=== PATIENT | female | born 1960 | race Hispanic/Latino ===

== ENCOUNTER 2017-09-07 11:41 | Emergency (ER) | payer OTHER ==
--- OUTSIDE RECORDS SUMMARY | 2017-09-07 11:43 | XMS REPORT ---
:1960 [facility] Address [address] [place] [address] Care Team Providers Name Role Phone JACQUI CORONADO Primary Care Provider Unavailable JACQUI CORONADO Unavailable Unavailable Problems This patient has no known problems. Allergies, Adverse Reactions, Alerts This patient has no known allergies or adverse reactions. Medications This patient has no known medications. Encounters Start End Encounter Admission Attending Care Care Encounter Date/Time Date/Time Type Type Clinicians Facility Department ID 2017-07-11 2017-07-11 Outpatient [facility] [id number] 17:58:00 17:58:00 JACQUI Results Test Description Test Time Test Comments Text Results Atomic Results Result Comments Lipid Profile 2017-07-11 22:09:00 Test Item Value Reference Range Comments Cholesterol (test code=CHOL) 107 mg/dL 0-200 Triglycerides (test code=TRIG) 76 mg/dL 9-200 HDL (test code=HDL) 36 mg/dL 50-60 Chol/HDL (test code=CHOLPHDL) 3.0 Ratio 0.0-4.4 LDL, Calculated (test 56 0-130 (NOTE)RISK OF HEART DISEASEPublished code=LDLC) by Iranian Heart AssociationAnalyte Optimal Boderline Increased RiskCHOL <200 200-239 >240TRIG <150 150-199 >200HDL Male: >60 <40HDL Female: >60 <50LDL <100 130-159 >160LDL NEAR OPTIMAL IS 100-129 VLDL (test code=VLDL) 15 mg/dL 5-40 LDL/HDL (test code=LDLPHDL) 2 Comprehensive Metabolic [id number] 22:09:00 Test Item Value Reference Range Comments Sodium (test code=NA) 143 mmol/L 135-145 Potassium (test code=K) 4.0 mmol/L 3.5-5.1 Chloride (test code=CL) 108 mmol/L 98-105 Carbon Dioxide (test 25 mmol/L 22-29 code=CO2) Glucose (test code=GLU) 113 mg/dL 70-115 Blood Urea Nitrogen 20 mg/dL 6-20 (test code=BUN) Creatinine (test 0.5 mg/dL 0.5-0.9 code=CREAT) Calcium (test code=CA) 9.0 mg/dL 8.3-10.5 Prot Total (test 7.0 g/dL 6.4-8.3 code=TP) Albumin (test code=ALB) 3.8 g/dL 3.5-5.2 A/G Ratio (test 1.2 Ratio code=AGRATIO) Globulin (test 3.2 2.9-3.1 code=GLOB) Bili Total (test 0.5 mg/dL 0.1-0.9 code=TBIL) Alk Phos (test 65 U/L 35-104 code=APHOS) AST (test code=AST) 16 U/L 1-32 ALT (test code=ALT) 21 U/L 1-33 BUN/Creatinine Ratio 40.0 (test code=BCRATIO) Anion Gap (test 10 mmol/L 7-16 code=AGAP) Estimated GFR (test >60 eGFR (estimated Glomerular code=GFR) mL/min/1.73m2 Filtration Rate) is an estimated value,calculated from the patient's serum creatinine using the MDRD equation.It is NOT the patient's actual GFR. The eGFR provides a more clinicallyuseful measure of kidney disease than serum creatinine alone.This calculation takes sex and race into account, if the informationis provided. If the race is not provided, and the patient isAfrican-Iranian, multiply by 1.212. If sex is not provided, and thepatient is female, multiply by 0.742. Results for patients <18 years ofage have not been validated by the MDRD study and should be interpretedwith caution.eGFR Result Interpretation:eGFR > or=60 is in the Normal RangeeGFR < 60 may mean kidney diseaseeGFR < 15 may mean kidney failureRanges recommended by the National Kidney Foundation,http://nkdep.ni h.gov [id number] 22:05:00 Test Item Value Reference Range Comments NT ProBnp (test code=PBNP) 1920 pg/mL 0-124 CBC with [id number] 18:24:00 Test Item Value Reference Range Comments WBC (test code=WBC) 5.2 K/cumm 4.4-10.5 RBC (test code=RBC) 4.36 M/cumm 3.75-5.20 Hemoglobin (test code=HGB) 12.5 gm/dL 12.2-14.8 Hematocrit (test code=HCT) 38.2 % 36.5-44.4 MCV (test code=MCV) 87.7 fL 80-100 MCH (test code=MCH) 28.7 pg 27.0-32.5 MCHC (test code=MCHC) 32.7 g/dL 32.0-37.5 RDW (test code=RDW) 14.5 % 11.5-14.5 Platelet Count (test code=PLTCT) 158 K/cumm 140-440 MPV (test code=MPV) 10.7 fL Diff Method (test code=DIFFM) Auto Neutrophil (test code=NEUT) 64.9 % 36-70 Lymphocyte (test code=LYMPH) 26.3 % 12-44 Monocyte (test code=MONO) 6.4 % 0-11 Eosinophil (test code=EOS) 1.7 % 0-7 Basophil (test code=BASO) 0.8 % 0-2 Neutro Abs (test code=ANEUT) 3.4 K/cumm 1.6-7.4 Lymph Abs (test code=ALYMPH) 1.4 K/cumm 0.5-4.6 Preston Abs (test code=AMONO) 0.3 K/cumm 0.0-1.2 Eos Abs (test code=AEOS) 0.09 K/cumm 0.00-0.74 Baso Abs (test code=ABASO) 0.0 K/cumm 0.00-0.21
--- OUTSIDE RECORDS SUMMARY | 2017-09-07 11:43 | XMS REPORT ---
:1960 [facility] Care Team Providers Name Role Phone Aleah Santizo Provider Role Unavailable Allergies, Adverse Reactions, Alerts Substance Reaction Event Type penicillin Info Not Available Drug Allergy Problems Problem Type Condition Code Onset Dates Condition Status Problem Uncontrolled type 2 diabetes E11.65 Active mellitus without complication, without long-term current use of insulin Problem Pain of left hand M79.642 Active Problem Abnormal finding on mammography R92.8 Active Problem Pain in left knee M25.562 Active Assessment Pharyngitis, unspecified etiology J02.9 Active Problem Cardiac defibrillator in place Z95.810 Active Problem Peripheral edema R60.9 Active Problem Pain in right hand M79.641 Active Problem Body mass index (BMI) of 45.0-49.9 Z68.42 Active in adult Problem Morbid (severe) obesity due to E66.01 Active excess calories Problem Varicose veins of bilateral lower I83.813 Active extremities with pain Problem Depression F32.9 Active Problem Edema R60.9 Active Problem Diabetes type 2, controlled E11.9 Active Problem Peripheral vascular disease I73.9 Active Problem Other chronic pain G89.29 Active Problem Pain in right knee M25.561 Active Problem Hypertension I10 Active Problem Shortness of breath R06.02 Active Problem Heart disease I51.9 Active Problem Hypertension, unspecified type I10 Active Medications Medication Code Code Instructions Start End Status Dosage System Date Date Glimepiride ND 57376687260 2 MG Orally Once Active 1 tablet a day Macario Aspirin ND 74167857943 81 MG Orally Active 1 tablet EC Low Dose Once a day Lisinopril ND 85493220832 40 MG Orally Active 1 tablet Once a day Metformin HCl ND 64266995947 500 MG Orally Active 1 tablet Twice a day with meals Furosemide ND 63106504539 40 MG Orally Active 1 tablet Once a day in am Klor-Con 10 ND 55722680878 10 MEQ Orally Oct 01, Active 1 tablet Once a day 2018 Coreg [facility] 22761562942 12.5 MG Orally Active 1 tablet Once daily Results Name Result Date Reference Range Unit Abnormality Flag FLU TEST ----A Negative [id number] ----B Negative [id number] STREP A RAPID ----Result Negative [id number] Summary Purpose eClinicalWorks Submission
[2017-09-07 13:46] LABS: Absolute Lymphocytes (CBC) 1.4 K/uL (0.7-4.9); Absolute Monocytes 0.3 K/uL (0.1-1.3); Absolute Neutrophil 3.9 K/uL (1.8-8.0); Basophils % 0.7 % (0-1.3); Eosinophils % 1.7 % (0-4.4); Hematocrit 37.3 % (36.0-45.0); Lymphocytes % 25.1 % (15.3-44.8); MCH 26.6 pg (27.0-35.0); MCV 82.7 fL (80-100); MPV 11.1 fL (7.6-11.3); Monocytes % 4.8 % (3.3-12.3); RBC Red Blood Cell Count 4.51 M/uL (3.86-4.86)
[2017-09-07 13:49] LABS: Protime INR 1.13
--- NOTE | 2017-09-07 13:56 | RAD REPORT ---
EXAM DESCRIPTION: RAD - Chest Pa And Lat (2 Views) - 09/07/2017 1:45 pm CLINICAL HISTORY: Shortness of breath. COMPARISON: 08/18/2015, 05/31/2009 FINDINGS: The lungs are clear. The heart is moderately enlarged with dual lead pacer/ defibrillator device in place. No displaced fractures. IMPRESSION: Moderate cardiomegaly.
[2017-09-07 14:08] LABS: Urine Blood 2+ (NEG); Urine Glucose NEGATIVE (NEG); Urine Protein NEGATIVE (NEG); Urine Specific Gravity 1.025 (1.005-1.030); Urine pH 5.5 (5.0-7.0)
[2017-09-07 14:18] LABS: Bicarbonate 27 mEq/L (21-31); Glucose Level 177 mg/dL (65-120); Potassium 3.3 mEq/L (3.6-5.0); Sodium Level 139 mEq/L (135-145)
[2017-09-07 14:25] LABS: ALT/SGPT 25 IU/L (10-60); AST/SGOT 19 IU/L (10-42); Albumin 3.6 g/dL (3.2-5.5); Alkaline Phosphatase 62 IU/L (42-121); BUN Blood Urea Nitrogen 16 mg/dL (6-20); Bilirubin Direct 0.1 mg/dL (0-0.2); Bilirubin Total 0.6 mg/dL (0.3-1.2); Magnesium 1.5 mg/dL (1.8-2.5)
[2017-09-07] MEDS ORDERED: Magnesium Sulfate 2gm IVPB 2 G/50 ML BAG IV ONE (14:46)
--- NOTE | 2017-09-07 15:19 | ER ---
Nurse's Notes [facility] Name: Sukh York Age: 57 yrs Sex: Female : 1960 Arrival Date: 09/07/2017 Time: 11:42 Bed 24 Private MD: Aleah Nicholson Diagnosis: Acute upper respiratory infection, unspecified Presentation: 09/07 11:49 Presenting complaint: Patient states: I have had a cough and sore throat since la1 Friday and I was running fever on Friday. I am feeling a little SOB as well and a productive cough. Transition of care: patient was not received from another setting of care. Onset of symptoms was September 07, 2017. Initial Sepsis Screen: Does the patient meet any 2 criteria? No. Patient's initial sepsis screen is negative. Does the patient have a suspected source of infection? No. Patient's initial sepsis screen is negative. Care prior to arrival: None. 11:49 Method Of Arrival: Ambulatory la1 11:49 Acuity: RADHA 3 la1 Triage Assessment: 13:41 General: Appears in no apparent distress. comfortable, obese, well groomed, well kr2 developed, well nourished, Behavior is calm, cooperative, appropriate for age. Respiratory: the patient reports symptoms have resolved. 14:00 Respiratory: Onset: The symptoms/episode began/occurred Friday. 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 - Social history:: Smoking status: Patient/guardian denies using tobacco. Screenin:41 Abuse screen: Denies threats or abuse. Denies injuries from another. Nutritional kr2 screening: No deficits noted. Tuberculosis screening: No symptoms or risk factors identified. Fall Risk IV access (20 points). Assessment: 13:38 General: Appears in no apparent distress. comfortable, obese, well groomed, well kr2 developed, well nourished, Behavior is calm, cooperative, appropriate for age. Pain: Complains of pain in entire body Pain currently is 0 out of 10 on a pain scale. at worst was 8 out of 10 on a pain scale. Quality of pain is described as aching, pressure, Is episodic, Alleviated by rest, Aggravated by increased activity. Neuro: Level of Consciousness is awake, alert, obeys commands, Oriented to person, place, time, situation, Appropriate for age. Cardiovascular: Capillary refill < 3 seconds in bilateral fingers Patient's skin is warm and dry. Rhythm is sinus rhythm. Respiratory: Reports shortness of breath on exertion cough that is productive, Airway is patent Respiratory effort is even, unlabored, Respiratory pattern is regular, symmetrical. Respiratory: Reports inability to lay flat. GI: Abdomen is flat, non-distended, Bowel sounds present X 4 quads. Abd is soft and non tender X 4 quads. : Urine is clear. EENT: Nares are clear bilaterally Oral mucosa is moist. Derm: Skin is intact, is healthy with good turgor, Skin is pink, warm \T\ dry. Musculoskeletal: Circulation, motion, and sensation intact. 13:38 Respiratory: Breath sounds are clear bilaterally. kr2 14:40 Reassessment: Patient appears in no apparent distress at this time. Patient and/or kr2 family updated on plan of care and expected duration. Pain level reassessed. Patient is alert, oriented x 3, equal unlabored respirations, skin warm/dry/pink. Patient denies pain at this time. 15:24 Reassessment: No changes from previously documented assessment. Patient to be kr2 discharged upon completion of IV magnesium. Vital Signs: 11:50 BP 130 / 79; Pulse 83; Resp 19; Temp 97.7(TE); Pulse Ox 97% on R/A; Weight 115.21 kg; la1 Height 5 ft. 1 in. (154.94 cm); Pain 8/10; 13:43 BP 131 / 91; Pulse 72; Resp 20; Pulse Ox 99% on R/A; kr2 14:08 BP 138 / 88; Pulse 83; Resp 20; Pulse Ox 98% on R/A; dh3 15:25 BP 138 / 95; Pulse 75; Resp 20; Pulse Ox 97% on R/A; kr2 16:24 BP 135 / 99; Pulse 75; Resp 18; Pulse Ox 99% on R/A; kr2 11:50 Body Mass Index 47.99 (115.21 kg, 154.94 cm) ri1 ED Course: 11:42 Patient arrived in ED. as 11:42 Aleah Nicholson MD is Private Physician. as 11:50 Triage completed. la1 11:50 Arm band placed on left wrist. la1 12:55 Anna Ferrara, DAY is Primary Nurse. kr2 12:57 Jose Magaña PA is PHCP. jr8 12:57 Gus San MD is Attending Physician. jr8 13:00 Patient has correct armband on for positive identification. Bed in low position. Call kr2 light in reach. Side rails up X 1. personnel monitor on. Pulse ox on. NIBP on. Door closed. Warm blanket given. Head of bed elevated. 13:35 Inserted saline lock: 20 gauge in left antecubital area, using aseptic technique. Blood kr2 collected. 13:42 XRAY Chest Pa And Lat (2 Views) In Process Unspecified. EDMS 13:43 X-ray completed. Patient tolerated procedure well. kp1 15:17 Aleah Nicholson MD is Referral Physician. jr8 16:24 No provider procedures requiring assistance completed. IV discontinued, intact, kr2 bleeding controlled, No redness/swelling at site. Pressure dressing applied. Administered Medications: 14:51 Drug: Magnesium Sulfate 2 grams Route: IVPB; Infused Over: 2 hrs; Site: left kr2 antecubital; 16:24 Follow up: Response: No adverse reaction; IV Status: Completed infusion kr2 Outcome: 15:17 Discharge ordered by . jr8 16:25 Discharged to home ambulatory. kr2 16:25 Condition: good 16:25 Discharge instructions given to patient, Instructed on discharge instructions, follow up and referral plans. medication usage, Demonstrated understanding of Prescriptions given X 3. 16:27 Patient left the ED. kr2 Signatures: Dispatcher [employer] EDMS Anu Lutz as Jose Magaña PA PA jr8 Jay Bhatti RN RN astrid1 Georgina Escamilla kp1 Nena Ibarra [facility] Anna Ferrara, RN RN kr2
--- NOTE | 2017-09-07 15:19 | EDPHYS ---
Physician Documentation [facility] Name: Sukh York Age: 57 yrs Sex: Female : 1960 Arrival Date: 09/07/2017 Time: 11:42 Bed 24 Private MD: Aleah Nicholson ED Physician Gus San HPI: 09/07 15:10 This 57 yrs old Female presents to ER via Ambulatory with complaints of Cough, jr8 Shortness Of Breath. 15:10 The patient or guardian reports cough, that is intermittent, described as mild, with no jr8 sputum. Onset: The symptoms/episode began/occurred acutely, 4 day(s) ago. Severity of symptoms: At their worst the symptoms were moderate, in the emergency department the symptoms are unchanged. Modifying factors: The symptoms are alleviated by nothing, the symptoms are aggravated by nothing. Associated signs and symptoms: Pertinent positives: sore throat. It is unknown whether or not the patient has had similar symptoms in the past. The patient has not recently seen a physician. noticed increased lower extremity edema. Had not taken her lasix today . 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 - Social history:: Smoking status: Patient/guardian denies using tobacco. ROS: 15:10 Eyes: Negative for injury, pain, redness, and discharge, Neck: Negative for injury, jr8 pain, and swelling, Cardiovascular: Negative for chest pain, palpitations, and edema, Abdomen/GI: Negative for abdominal pain, nausea, vomiting, diarrhea, and constipation, Back: Negative for injury and pain, MS/Extremity: Negative for injury and deformity, Skin: Negative for injury, rash, and discoloration, Neuro: Negative for headache, weakness, numbness, tingling, and seizure. 15:10 ENT: Positive for sore throat, Negative for drainage from ear(s), ear pain, nasal discharge, rhinorrhea, sinus congestion, difficulty swallowing, difficulty handling secretions, hoarseness. 15:10 Respiratory: Positive for cough, shortness of breath. Exam: 15:10 Eyes: Pupils equal round and reactive to light, extra-ocular motions intact. Lids and jr8 lashes normal. Conjunctiva and sclera are non-icteric and not injected. Cornea within normal limits. Periorbital areas with no swelling, redness, or edema. ENT: Nares patent. No nasal discharge, no septal abnormalities noted. Tympanic membranes are normal and external auditory canals are clear. Oropharynx with no redness, swelling, or masses, exudates, or evidence of obstruction, uvula midline. Mucous membranes moist. Neck: Trachea midline, no thyromegaly or masses palpated, and no cervical lymphadenopathy. Supple, full range of motion without nuchal rigidity, or vertebral point tenderness. No Meningismus. Cardiovascular: Regular rate and rhythm with a normal S1 and S2. No gallops, murmurs, or rubs. Normal PMI, no JVD. No pulse deficits. Respiratory: Lungs have equal breath sounds bilaterally, clear to auscultation and percussion. No rales, rhonchi or wheezes noted. No increased work of breathing, no retractions or nasal flaring. Abdomen/GI: Soft, non-tender, with normal bowel sounds. No distension or tympany. No guarding or rebound. No evidence of tenderness throughout. Back: No spinal tenderness. No costovertebral tenderness. Full range of motion. Skin: Warm, dry with normal turgor. Normal color with no rashes, no lesions, and no evidence of cellulitis. MS/ Extremity: Pulses equal, no cyanosis. Neurovascular intact. Full, normal range of motion. Neuro: Awake and alert, GCS 15, oriented to person, place, time, and situation. Cranial nerves II-XII grossly intact. Motor strength 5/5 in all extremities. Sensory grossly intact. Cerebellar exam normal. Normal gait. Vital Signs: 11:50 BP 130 / 79; Pulse 83; Resp 19; Temp 97.7(TE); Pulse Ox 97% on R/A; Weight 115.21 kg; la1 Height 5 ft. 1 in. (154.94 cm); Pain 8/10; 13:43 BP 131 / 91; Pulse 72; Resp 20; Pulse Ox 99% on R/A; kr2 14:08 BP 138 / 88; Pulse 83; Resp 20; Pulse Ox 98% on R/A; dh3 15:25 BP 138 / 95; Pulse 75; Resp 20; Pulse Ox 97% on R/A; kr2 16:24 BP 135 / 99; Pulse 75; Resp 18; Pulse Ox 99% on R/A; kr2 11:50 Body Mass Index 47.99 (115.21 kg, 154.94 cm) la1 MDM: 12:57 Patient medically screened. [facility] 15:10 Data reviewed: vital signs, nurses notes, lab test result(s), EKG, radiologic studies, jr8 plain films, and as a result, I will discharge patient. Data interpreted: Pulse oximetry: on room air is 98 %. Interpretation: normal. Counseling: I had a detailed discussion with the patient and/or guardian regarding: the historical points, exam findings, and any diagnostic results supporting the discharge/admit diagnosis, lab results, radiology results, the need for outpatient follow up, a family practitioner, to return to the emergency department if symptoms worsen or persist or if there are any questions or concerns that arise at home. 09/07 13:00 Order name: Basic Metabolic Panel; Complete Time: 14: [facility] 09/07 13:00 Order name: BNP; Complete Time: 14: [facility] 09/07 13:00 Order name: CBC with Diff; Complete Time: 14: [facility] 09/07 13:00 Order name: LFT's; Complete Time: 14:29 [facility] 09/07 13:00 Order name: Magnesium; Complete Time: 14:29 [facility] 09/07 13:00 Order name: PT-INR; Complete Time: 14: [facility] 09/07 12:58 Order name: XRAY Chest Pa And Lat (2 Views); Complete Time: 14:29 [facility] 09/07 13:00 Order name: EKG; Complete Time: 13:01 [facility] 09/07 13:00 Order name: Cardiac monitoring; Complete Time: 13:36 [facility] 09/07 13:00 Order name: EKG - Nurse/Tech; Complete Time: 13:36 [facility] 09/07 13:00 Order name: IV Saline Lock; Complete Time: 13:37 [facility] 09/07 13:37 Order name: Urine Dipstick--Ancillary (enter results); Complete Time: 14:29 09/07 13:37 Order name: Urine --Ancillary (enter results); Complete Time: 14:29 09/07 13:00 Order name: Labs collected and sent; Complete Time: 13:37 jr8 09/07 13:00 Order name: O2 Per Protocol; Complete Time: : jr8 09/07 13:00 Order name: O2 Sat Monitoring; Complete Time: : jr8 09/07 13:00 Order name: Urine Dipstick-Ancillary (obtain specimen); Complete Time: : jr8 Administered Medications: 14:51 Drug: Magnesium Sulfate 2 grams Route: IVPB; Infused Over: 2 hrs; Site: left kr2 antecubital; 16:24 Follow up: Response: No adverse reaction; IV Status: Completed infusion kr2 Disposition: 09/08 09:18 Co-signature as Attending Physician, Gus San MD I agree with the assessment and guerita plan of care. Disposition: 09/07/17 15:17 Discharged to Home. Impression: Acute upper respiratory infection, unspecified. - Condition is Stable. - Discharge Instructions: Upper Respiratory Infection, Adult. - Prescriptions for Tessalon Perles 100 mg Oral Capsule - take 1 capsule by ORAL route every 8 hours As needed; 15 capsule. Zithromax Z- Omar 250 mg Oral Tablet - take 1 tablet by ORAL route as directed for 5 days Day 1 - take two (2) tablets one time. Day 2, 3, 4 , 5 take one (1) tablet once daily.; 6 tablet. Guaifenesin AC 10- 100 mg/5 mL Oral Liquid - take 10 milliliter by ORAL route every 4 hours As needed; 240 milliliter. - Medication Reconciliation Form, Thank You Letter, Antibiotic Education, Prescription Opioid Use form. - Follow up: Aleah Nicholson MD; When: 1 - 2 days; Reason: Recheck today's complaints, Continuance of care, Re-evaluation by your physician. - Problem is new. - Symptoms have improved. Signatures: Dispatcher [employer] Gus Gardner MD MD cha Roszak, Josh, PA PA jr8 Jay Bhatti RN RN la1 Anna Ferrara RN RN kr2
[2017-09-07 16:31] VITALS: TEMP 97.7
[2017-09-07 16:36] VITALS: BP 135/99; O2SAT 99
--- NOTE | 2017-09-07 18:25 | EKG ---
Test Date: 2017-09-07 Test Time: 13:21:18 Vice President And Portfolio Manager: BABAK MEASUREMENT RESULTS: Intervals: Rate: 74 LA: 156 QRSD: 116 QT: 394 QTc: 437 Geraldine: P: 50 LA: 156 QRS: -21 T: 102 INTERPRETIVE STATEMENTS: Normal sinus rhythm Left ventricular hypertrophy with QRS widening ST & T wave abnormality, consider lateral ischemia Abnormal ECG Compared to ECG 05/31/2009 01:07:54 ST (T wave) deviation now present Possible ischemia now present T-wave abnormality no longer present Electronically Signed On 09-07-17 18:25:11 CDT by Papa Tellez
== END 2017-09-07 16:27 | disposition home or self-care (01) ==
LOC: ER 11:41
DX: J06.9 Acute upper respiratory infection, unspecified (principal); R06.02 Shortness of breath; I10 Essential (primary) hypertension; E11.9 Type 2 diabetes mellitus without complications; Z88.0 Allergy status to penicillin
CPT/HCPCS: 36415; 71046; 80048; 80076; 81003; 81025; 83735; 83880; 85025; 85610; 93005; 96365; 96366; 99284; J3475

== ENCOUNTER 2017-12-11 11:58 | Observation (INO) | payer OTHER ==
--- OUTSIDE RECORDS SUMMARY | 2017-12-11 12:01 | XMS REPORT ---
:1960 Author Organization [facility] Care Team Providers Name Role Phone Aleah [...] Status Dosage System Date Date Glimepiride ND 13061175586 2 MG Orally Once Active 1 tablet a day Macario Aspirin ND 73240398814 81 MG Orally Active 1 tablet EC Low Dose Once a day Lisinopril ND 84303560573 40 MG Orally Active 1 tablet Once a day Metformin HCl ND 18668877652 500 MG Orally Active 1 tablet Twice a day with meals Furosemide ND 10796371390 40 MG Orally Active 1 tablet Once a day in am Klor-Con 10 ND 64014314529 10 MEQ Orally Oct 01, Active 1 tablet Once a day 2018 Coreg [facility] 99994289682 12.5 MG Orally Active 1 tablet Once daily Results Name Result Date Reference Range Unit Abnormality Flag FLU TEST ----A Negative [id number] ----B Negative [id number] STREP A RAPID ----Result Negative [id number] Summary Purpose eClinicalWorks Submission
--- OUTSIDE RECORDS SUMMARY | 2017-12-11 12:01 | XMS REPORT ---
:1960 Author Organization eClinicalWorks Care Team Providers Name Role Phone Juan Nicholsonen Provider Role Unavailable Allergies, Adverse Reactions, Alerts Substance Reaction Event Type penicillin Info Not Available Drug Allergy Problems Problem Type Condition Code Onset Dates Condition Status Assessment Peripheral edema R60.9 Active Assessment Uncontrolled type 2 diabetes E11.65 Active mellitus without complication, without long-term current use of insulin Assessment Hypertension, unspecified type I10 Active Assessment Shortness of breath R06.02 Active Assessment Acute pain of left shoulder M25.512 Active Assessment Neck pain M54.2 Active Problem Varicose veins of bilateral lower I83.813 Active extremities with pain Assessment Acute nonintractable headache, R51 Active unspecified headache type Problem Morbid (severe) obesity due to E66.01 Active excess calories Problem Cardiac defibrillator in place Z95.810 Active Problem Peripheral edema R60.9 Active Problem Pain in left knee M25.562 Active Problem Acute pain of left shoulder M25.512 Active Problem Acute nonintractable headache, R51 Active unspecified headache type Problem Diabetes type 2, controlled E11.9 Active Problem Heart disease I51.9 Active Problem Neck pain M54.2 Active Problem Hypertension I10 Active Problem Other chronic pain G89.29 Active Problem Shortness of breath R06.02 Active Problem Hypertension, unspecified type I10 Active Problem Pain in right knee M25.561 Active Problem Edema R60.9 Active Problem Uncontrolled type 2 diabetes E11.65 Active mellitus without complication, without long-term current use of insulin Problem Peripheral vascular disease I73.9 Active Problem Depression F32.9 Active Problem Body mass index (BMI) of 45.0-49.9 Z68.42 Active in adult Problem Pain in right hand M79.641 Active Problem Abnormal finding on mammography R92.8 Active Problem Pain of left hand M79.642 Active Medications Medication Code Code Instructions Start End Status Dosage System Date Date Furosemide [facility] 92792012827 40 MG Orally Active 1 tablet Once a day in am Metformin HCl ND 95336430145 500 MG Orally Active 1 tablet Twice a day with meals Lisinopril [facility] 04959219155 40 MG Orally Active 1 tablet Once a day Klor-Con [address] [facility] 18477915562 10 MEQ Orally Jun 01, Active 1 tablet Once a day 2018 Tylenol # 3 [facility] 0 300/30mg PO Once December 03Jan 02, Active 1 tablet daily in evening 2017 2017 as needed for severe pain Coreg [facility] 35211462940 12.5 MG Orally Active 1 tablet Once daily Glimepiride [facility] 71543522563 2 MG Orally Once Active 1 tablet a day Macario Aspirin [facility] 27587955736 81 MG Orally Active 1 tablet EC Low Dose Once a day Results No Known Results Summary Purpose eClinicalWorks Submission
--- OUTSIDE RECORDS SUMMARY | 2017-12-11 12:01 | XMS REPORT ---
:1960 Author Organization eClinicalWorks Care Team Providers Name Role Phone Aleah Nicholson Provider Role Unavailable Allergies, Adverse Reactions, Alerts Substance Reaction Event Type penicillin Info Not Available Drug Allergy Problems Problem Type Condition Code Onset Dates Condition Status Assessment Shortness of breath R06.02 Active Assessment Chest pain, unspecified type R07.9 Active Problem Peripheral vascular disease I73.9 Active Problem Depression F32.9 Active Problem Edema R60.9 Active Problem Heart disease I51.9 Active Problem Diabetes type 2, controlled E11.9 Active Problem Hypertension I10 Active Problem Neck pain M54.2 Active Problem Uncontrolled type 2 diabetes E11.65 Active mellitus without complication, without long-term current use of insulin Problem Acute pain of left shoulder M25.512 Active Problem Abnormal finding on mammography R92.8 Active Problem Acute nonintractable headache, R51 Active unspecified headache type Problem Chronic congestive heart failure, I50.9 Active unspecified heart failure type Problem Varicose veins of both lower I83.93 Active extremities, unspecified whether complicated Problem Polyarthralgia M25.50 Active Problem Multiple falls R29.6 Active Problem Hypertension, unspecified type I10 Active Problem Body mass index (BMI) of 45.0-49.9 Z68.42 Active in adult Assessment Tremor of both hands R25.1 Active Problem AICD (automatic Z95.810 Active cardioverter/defibrillator) present Problem Pain of left hand M79.642 Active Assessment Polyarthralgia M25.50 Active Problem Tremor of both hands R25.1 Active Assessment Multiple falls R29.6 Active Problem Cardiomyopathy, unspecified type I42.9 Active Assessment Hypertension, unspecified type I10 Active Problem Coronary artery disease involving I25.10 Active eyak coronary artery of eyak heart, angina presence unspecified Assessment Uncontrolled type 2 diabetes E11.65 Active mellitus without complication, without long-term current use of insulin Problem Chest pain, unspecified type R07.9 Active Assessment Cardiomyopathy, unspecified type I42.9 Active Problem Varicose veins of bilateral lower I83.813 Active extremities with pain Assessment Chronic congestive heart failure, I50.9 Active unspecified heart failure type Problem Morbid (severe) obesity due to E66.01 Active excess calories Assessment AICD (automatic Z95.810 Active cardioverter/defibrillator) present Problem Peripheral edema R60.9 Active Assessment Coronary artery disease involving I25.10 Active eyak coronary artery of eyak heart, angina presence unspecified Problem Pain in right hand M79.641 Active Assessment Varicose veins of both lower I83.93 Active extremities, unspecified whether complicated Problem Pain in right knee M25.561 Active Assessment Peripheral edema R60.9 Active Problem Shortness of breath R06.02 Active Problem Pain in left knee M25.562 Active Problem Other chronic pain G89.29 Active Medications Medication Code Code Instructions Start End Status Dosage System Date Date Lisinopril [facility] 18804353535 40 MG Orally Active 1 tablet Once a day Coreg [facility] 45039879515 12.5 MG Orally Active 1 tablet Once daily Furosemide ND 49729457542 40 MG Orally Active 1 tablet Once a day in am Klor-Con [address] [facility] 67585933451 10 MEQ Orally Jun 01, Active 1 tablet Once a day 2018 Metformin HCl ND 94797397523 500 MG Orally Active 1 tablet Twice a day with meals Macario Aspirin [facility] 32054867546 81 MG Orally Active 1 tablet EC Low Dose Once a day Glimepiride [facility] 19226261983 2 MG Orally Once Active 1 tablet a day Tylenol # 3 ND 0 300/30mg PO Once December 03, Jan 02, Active 1 tablet daily in evening 2017 2018 as needed for severe pain Results No Known Results Summary Purpose eClinicalWorks Submission
--- OUTSIDE RECORDS SUMMARY | 2017-12-11 12:01 | XMS REPORT | Clinical Summary ---
:[address] [facility] Address [address] [place] [address] Phone Care Team Providers Name Role Phone Unavailable Primary Care Provider Unavailable Allergies Not on File Current Medications Not on file Active Problems Not on file Encounters Date Type Specialty Care Team Description 11/25/2017 Outside Orders Mar Chase, SMEARER, RPSGT 11/01/2017 Hospital Encounter Chin-Alonzo, Morbid obesity Khadijah Acosta MD ([facility]);Encounter for pre-operative cardiovascular clearance;Pacemaker;Chron ic congestive heart failure, unspecified heart failure type (HCC);Past use of tobacco;Sleep disorder breathing 10/20/2017 Orders Only Ana Gonzalez, Morbid obesity (HCC) 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, 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);Encounter for pre-operative cardiovascular clearance;Pacemaker;Chron ic congestive heart failure, unspecified heart failure type ([facility]);Past use of tobacco;Sleep disorder breathing after 12/10/2016 Social History Tobacco Use Types Packs/Day Years Used Date Never Assessed Sex Assigned at Date Recorded Not on file Last Filed Vital Signs Not on file Plan of Treatment Health Maintenance Due Date Last Done Comments INFLUENZA VACCINE 02/16/2018 Results POLYSOMNOGRAPHY REPORT - SCAN (11/28/2017 1:31 PM)Only the most recent of2 resultswithin the time period is included.after 12/10/2016
--- OUTSIDE RECORDS SUMMARY | 2017-12-11 12:01 | XMS REPORT ---
:1960 Author Organization [facility] Address [address] [place] [address] Care Team Providers Name Role Phone JACQUI CORONADO Primary Care Provider Unavailable JACQUI CORONADO Unavailable Unavailable Problems This patient has no known problems. Allergies, Adverse Reactions, Alerts This patient has no known allergies or adverse reactions. Medications This patient has no known medications. Encounters Start End Encounter Admission Attending Care Care Encounter Date/Time Date/Time Type Type Clinicians Facility Department ID 2017-07-11 2017-07-11 [id number]:00 17:58:00 JACQUI Results Test Description Test Time Test Comments Text Results Atomic Results Result Comments Lipid Profile 2017-07-11 22:09:00 Test Item Value Reference Range Comments Cholesterol (test code=CHOL) 107 mg/dL 0-200 Triglycerides (test code=TRIG) 76 mg/dL 9-200 HDL (test code=HDL) 36 mg/dL 50-60 Chol/HDL (test code=CHOLPHDL) 3.0 Ratio 0.0-4.4 LDL, Calculated (test 56 0-130 (NOTE)RISK OF HEART DISEASEPublished code=LDLC) by [place] Heart AssociationAnalyte Optimal Boderline Increased RiskCHOL <200 200-239 >240TRIG <150 150-199 >200HDL Male: >60 <40HDL Female: >60 <50LDL <100 130-159 >160LDL NEAR OPTIMAL IS 100-129 VLDL (test code=VLDL) 15 mg/dL 5-40 LDL/HDL (test code=LDLPHDL) 2 Comprehensive Metabolic [id number] 22:09:00 Test Item Value Reference Range Comments [...] mmol/L 7-16 code=AGAP) Estimated GFR (test >60 mL/min/1.73m2 eGFR (estimated Glomerular code=GFR) Filtration Rate) is an estimated value,calculated from the patient's serum creatinine using the MDRD equation.It is NOT the patient's actual GFR. The eGFR provides a more clinicallyuseful measure of kidney disease than serum creatinine alone.This calculation takes sex and race into account, if the informationis provided. If the race is not provided, and the patient isAfrican-[place], multiply by 1.212. If sex is not provided, and thepatient is female, multiply by 0.742. Results for patients <18 years ofage have not been validated by the MDRD study and should be interpretedwith caution.eGFR Result Interpretation:eGFR > or=60 is in the Normal RangeeGFR < 60 may mean kidney diseaseeGFR < 15 may mean kidney failureRanges recommended by the National Kidney Foundation,http://nkdep.nih .gov [id number] 22:05:00 Test Item Value Reference Range Comments NT ProBnp (test code=PBNP) 1920 pg/mL 0-124 CBC with [id number] 18:24:00 Test Item Value Reference Range Comments [...] Lymph Abs (test code=ALYMPH) 1.4 K/cumm 0.5-4.6 [place] Abs (test code=AMONO) 0.3 K/cumm 0.0-1.2 Eos Abs (test code=AEOS) 0.09 K/cumm 0.00-0.74 Baso Abs (test code=ABASO) 0.0 K/cumm 0.00-0.21
[2017-12-11 12:40] LABS: Urine Blood 1+ (NEG); Urine Glucose NEGATIVE (NEG); Urine Protein NEGATIVE (NEG)
[2017-12-11 12:47] LABS: Absolute Lymphocytes (CBC) 1.3 K/uL (0.7-4.9); Absolute Monocytes 0.4 K/uL (0.1-1.3); Basophils % 0.6 % (0-1.3); Eosinophils % 1.4 % (0-4.4); Hematocrit 37.7 % (36.0-45.0); MCV 81.8 fL (80-100); MPV 10.5 fL (7.6-11.3); Monocytes % 5.2 % (3.3-12.3)
[2017-12-11 13:09] LABS: ALT/SGPT 28 U/L (12-78); AST/SGOT 15 U/L (15-37); Albumin 3.7 g/dL (3.4-5.0); Alkaline Phosphatase 68 U/L (45-117); BUN Blood Urea Nitrogen 12 mg/dL (7-18); Bicarbonate 27 mmol/L (21-32); Bilirubin Direct 0.2 mg/dL (0-0.2); Bilirubin Total 0.7 mg/dL (0.2-1.0); Glucose Level 134 mg/dL (74-106); Magnesium 1.9 mg/dL (1.8-2.4); NT PRO-BNP 3523 pg/mL (<125); Potassium 3.3 mmol/L (3.5-5.1); Protein, Total 7.5 g/dL (6.4-8.2); Sodium Level 142 mmol/L (136-145)
[2017-12-11 13:10] LABS: Protime INR 1.13
--- NOTE | 2017-12-11 14:00 | RAD REPORT ---
EXAM DESCRIPTION: RAD - Chest Single View - 12/11/2017 1:37 pm CLINICAL HISTORY: Dyspnea, shortness of breath COMPARISON: September 07 TECHNIQUE: AP portable chest image was obtained 1317 hour . FINDINGS: No peripheral mass or consolidation. Interstitial markings are prominent. Trachea is midli ne. Heart size is upper normal. Vascular engorgement is seen. Pacemaker/ defibrillator is in place. N o measurable pleural effusion and no pneumothorax. No gross bony abnormality seen. No acute aortic fi ndings suspected. IMPRESSION: Mild CHF/volume overload pattern.
--- NOTE | 2017-12-11 15:21 | ER ---
Nurse's Notes [facility] Name: Sukh York Age: 57 yrs Sex: Female : 1960 Arrival Date: 12/11/2017 Time: 12:01 Bed 7 Private MD: Aleah Nicholson Diagnosis: Combined systolic (congestive) and diastolic (congestive) heart failure Presentation: 12/11 12:01 Presenting complaint: Patient states: i do have breathing problems, about 2 am this hj morning, i was awaken by lack of air, short of breath, when i take water pill, i usually feel better, but today, even if i took one, i still have difficulty breathing; reports defibrillator since 2014; reports wheezing; reports radiating chest pain to L arm; denies fever and chills;. Transition of care: patient was not received from another setting of care. Onset of symptoms was December 11, 2017. Risk Assessment: Do you want to hurt yourself or someone else? Patient reports no desire to harm self or others. Initial Sepsis Screen: Does the patient meet any 2 criteria? No. Patient's initial sepsis screen is negative. Does the patient have a suspected source of infection? No. Patient's initial sepsis screen is negative. Care prior to arrival: None. 12:01 Method Of Arrival: Ambulatory 12:01 Acuity: RADHA 3 hj Triage Assessment: 12:06 General: Appears in no apparent distress. uncomfortable, Behavior is calm, cooperative, hj appropriate for age. Pain: Complains of pain in chest. Respiratory: Reports shortness of breath labored breathing Onset: The symptoms/episode began/occurred this morning, the patient has mild shortness of breath. Historical: - Allergies: 12:06 PENICILLINS; hj - Home Meds: 12:06 Metformin Oral [Active]; Lisinopril Oral [Active]; Klor-Con oral oral [Active]; hj carvedilol oral oral [Active]; Aspirin Oral [Active]; Furosemide Oral [Active]; Glimepiride Oral [Active]; - PMHx: 12:06 Diabetes - NIDDM; Hypertension; hj - PSHx: 12:06 pacemaker/defib; hj - Immunization history:: Adult Immunizations up to date. - Social history:: Smoking status: Patient/guardian denies using tobacco, Patient/guardian denies using alcohol. - Ebola Screening: : Patient negative for fever greater than or equal to 101.5 degrees Fahrenheit, and additional compatible Ebola Virus Disease symptoms Patient denies exposure to infectious person Patient denies travel to an Ebola-affected area in the 21 days before illness onset. Screenin:06 Abuse screen: Denies threats or abuse. Denies injuries from another. Nutritional hj screening: No deficits noted. Tuberculosis screening: Fall Risk None identified. Assessment: 12:06 Cardiovascular: Rhythm is. Respiratory: Airway is patent Respiratory effort is even, hj unlabored, Respiratory pattern is regular, symmetrical, 12:36 General: Appears in no apparent distress. uncomfortable, Behavior is cooperative, ae1 anxious. Pain: Complains of pain in anterior aspect of left shoulder. Neuro: Level of Consciousness is awake, alert, obeys commands, Oriented to person, place, time, situation. Cardiovascular: Denies chest pain, nausea. Respiratory: Reports shortness of breath at rest on exertion. GI: No signs and/or symptoms were reported involving the gastrointestinal system. Abdomen is round obese, Abd is soft and non tender. : No signs and/or symptoms were reported regarding the genitourinary system. EENT: No signs and/or symptoms were reported regarding the EENT system. Derm: Skin is pale, discoloration to FRANSISCO heels and ankles. Musculoskeletal: Swelling present in right foot, left foot, right leg, lateral aspect of left calf, left calf, medial aspect of left calf and left brush. 12:40 Reassessment: Patient c/o "dry mouth" provider notified, ok per provider to give small ae1 amount of ice chips. 13:00 Reassessment: Patient up to bathroom to urinate. Patient ambulated with steady gait. ae1 14:36 Reassessment: Patient appears in no apparent distress at this time. Patient and/or ae1 family updated on plan of care and expected duration. Pain level reassessed. Neuro: Level of Consciousness is awake, alert, obeys commands. Respiratory: Airway is patent. Vital Signs: 12:07 BP 121 / 68; Pulse 73; Resp 18; Temp 98.1(O); Pulse Ox 98% on R/A; Weight 117.93 kg; hj Height 5 ft. 1 in. (154.94 cm); Pain 7/10; 12:59 BP 124 / 84; Pulse 73; Resp 18; Pulse Ox 97% on R/A; mt 14:04 BP 128 / 91; Pulse 73; Resp 18; Pulse Ox 97% on R/A; ae1 15:26 BP 133 / 91; Pulse 75; Resp 16; Pulse Ox 99% on R/A; mt 12:07 Body Mass Index 49.12 (117.93 kg, 154.94 cm) hj ED Course: 12:01 Patient arrived in ED. mr 12:01 Aleah Nicholson MD is Private Physician. mr 12:04 Triage completed. hj 12:06 Arm band placed on left wrist. hj 12:07 Patient has correct armband on for positive identification. Placed in gown. Bed in low hj position. Call light in reach. Side rails up X 1. 12:11 Angel Fowler MD is Attending Physician. kdr 12:21 Urine collected: clean catch specimen, clear, kye colored. jb1 12:30 Rosalio Yancey, RN is Primary Nurse. ae1 12:30 Inserted saline lock: 20 gauge in right antecubital area, using aseptic technique. iw Blood collected. 12:45 EKG done, by distribution tech. reviewed by Angel Fowler MD. at1 13:30 X-ray completed. Portable x-ray completed in exam room. Patient tolerated procedure jb2 well. 13:37 XRAY Chest (1 view) In Process Unspecified. EDMS 15:20 Jeniffer Hernandez MD is Hospitalizing Provider. kdr 16:41 No provider procedures requiring assistance completed. Patient admitted, IV remains in ae1 place. Administered Medications: 15:38 Drug: Lasix 60 mg Route: IVP; Site: right antecubital; ae1 16:13 Follow up: Response: Other; patient up to bathroom 3 times to void. ae1 Intake: Outcome: 15:20 Decision to Hospitalize by Provider. kdr 16:41 Admitted to Med/surg accompanied by tech, via wheelchair, room 225, with chart, Report ae1 called to alyssa Childs nurse. 16:41 Condition: stable 16:41 Instructed on the need for admit, Demonstrated understanding of instructions. 16:42 Patient left the ED. ae1 Signatures: Dispatcher [employer] EDMS Jacoby Abarca jb1 Angel Fowler MD MD kdr Rivera, Maria mr Shanita, Prasanth jb2 Kerry Hays, RN DAY iw Betty hou, lean engineer EKG Tat1 Jose Miguel Hurt RN RN Rosalio Yancey RN RN ae1 Marci Grande ia Corrections: (The following items were deleted from the chart) 12:09 12:01 Presenting complaint: Patient states: i do have breathing problems, about 2 am this morning, i was awaken by lack of air, short of breath, when i take water pill, i usually feel better, but today, even if i took one, i still have difficulty breathing; reports defibrillator since 2014; reports wheezing; denies fever and chills; 12:09 12:07 Pulse 73bpm; Resp 18bpm; Pulse Ox 98% RA; Temp 98.1F Oral; 117.93 kg; Height 5 hj ft. 1 in.; BMI: 49.1; Pain 7/10; hj
--- NOTE | 2017-12-11 15:21 | EDPHYS ---
Physician Documentation [facility] Name: Sukh York Age: 57 yrs Sex: Female : 1960 Arrival Date: 12/11/2017 Time: 12:01 Bed 7 Private MD: Aleah Nicholson ED Physician Angel Fowler HPI: 12/11 17:14 This 57 yrs old Female presents to ER via Ambulatory with complaints of kdr Breathing Difficulty. 17:14 The patient has shortness of breath at rest, with light activity. Onset: The kdr symptoms/episode began/occurred suddenly, at 02:00, has been having increased breathing difficulty for the past few days but became acutely worse this morning at 2:00. Historical: - Allergies: 12:06 PENICILLINS; hj - Home Meds: 12:06 Metformin Oral [Active]; Lisinopril Oral [Active]; Klor-Con oral oral [Active]; hj carvedilol oral oral [Active]; Aspirin Oral [Active]; Furosemide Oral [Active]; Glimepiride Oral [Active]; - PMHx: 12:06 Diabetes - NIDDM; Hypertension; hj - PSHx: 12:06 pacemaker/defib; hj - Immunization history:: Adult Immunizations up to date. - Social history:: Smoking status: Patient/guardian denies using tobacco, Patient/guardian denies using alcohol. - Ebola Screening: : Patient negative for fever greater than or equal to 101.5 degrees Fahrenheit, and additional compatible Ebola Virus Disease symptoms Patient denies exposure to infectious person Patient denies travel to an Ebola-affected area in the 21 days before illness onset. ROS: 17:19 Constitutional: Negative for fever, chills, and weight loss, Eyes: Negative for injury, kdr pain, redness, and discharge, ENT: Negative for injury, pain, and discharge, Neck: Negative for injury, pain, and swelling, Cardiovascular: Negative for chest pain, palpitations, and edema, Abdomen/GI: Negative for abdominal pain, nausea, vomiting, diarrhea, and constipation, Back: Negative for injury and pain, : Negative for injury, bleeding, discharge, and swelling, MS/Extremity: Negative for injury and deformity, Skin: Negative for injury, rash, and discoloration, Neuro: Negative for headache, weakness, numbness, tingling, and seizure activity. Psych: Negative for depression, anxiety, suicide ideation, homicidal ideation, and hallucinations, Allergy/Immunology: Negative for hives, rash, and allergies, Endocrine: Negative for neck swelling, polydipsia, polyuria, polyphagia, and marked weight changes, Hematologic/Lymphatic: Negative for swollen nodes, abnormal bleeding, and unusual bruising. 17:19 Respiratory: Positive for cough, with no reported sputum, shortness of breath, Negative for hemoptysis, orthopnea, pleurisy, wheezing. Exam: 17:19 Constitutional: This is a well developed, well nourished patient who is awake, alert, kdr and in no acute distress. Head/Face: Normocephalic, atraumatic. Eyes: Pupils equal round and reactive to light, extra-ocular motions intact. Lids and lashes normal. Conjunctiva and sclera are non-icteric and not injected. Cornea within normal limits. Periorbital areas with no swelling, redness, or edema. Neck: Trachea midline, no thyromegaly or masses palpated, and no cervical lymphadenopathy. Supple, full range of motion without nuchal rigidity, or vertebral point tenderness. No Meningismus. Chest/axilla: Normal chest wall appearance and motion. Nontender with no deformity. No lesions are appreciated. Cardiovascular: Regular rate and rhythm with a normal S1 and S2. No gallops, murmurs, or rubs. Normal PMI, no JVD. No pulse deficits. Abdomen/GI: Soft, non-tender, with normal bowel sounds. No distension or tympany. No guarding or rebound. No evidence of tenderness throughout. Back: No spinal tenderness. No costovertebral tenderness. Full range of motion. Skin: Warm, dry with normal turgor. Normal color with no rashes, no lesions, and no evidence of cellulitis. MS/ Extremity: Pulses equal, no cyanosis. Neurovascular intact. Full, normal range of motion. Neuro: Awake and alert, GCS 15, oriented to person, place, time, and situation. Cranial nerves II-XII grossly intact. Motor strength 5/5 in all extremities. Sensory grossly intact. Cerebellar exam normal. Normal gait. Psych: Awake, alert, with orientation to person, place and time. Behavior, mood, and affect are within normal limits. 17:19 Respiratory: the patient does not display signs of respiratory distress, Respirations: normal, Breath sounds: rales, that are mild, are located in both bases, rhonchi, that are mild, are located in both bases. Vital Signs: 12:07 BP 121 / 68; Pulse 73; Resp 18; Temp 98.1(O); Pulse Ox 98% on R/A; Weight 117.93 kg; hj Height 5 ft. 1 in. (154.94 cm); Pain 7/10; 12:59 BP 124 / 84; Pulse 73; Resp 18; Pulse Ox 97% on R/A; mt 14:04 BP 128 / 91; Pulse 73; Resp 18; Pulse Ox 97% on R/A; ae1 15:26 BP 133 / 91; Pulse 75; Resp 16; Pulse Ox 99% on R/A; mt 12:07 Body Mass Index 49.12 (117.93 kg, 154.94 cm) hj MDM: 15:20 Patient medically screened. kdr 17:19 Data reviewed: vital signs, lab test result(s), radiologic studies. Counseling: I had a kdr detailed discussion with the patient and/or guardian regarding: the historical points, exam findings, and any diagnostic results supporting the discharge/admit diagnosis, lab results, radiology results, the need for further work-up and treatment in the hospital. ED course: The patient was stable and improving in the ED with the interventions given. 12/11 12:26 Order name: LFT's; Complete Time: 13:27 [facility] 12/11 12:26 Order name: Basic Metabolic Panel; Complete Time: 13: [facility] 12/11 12:26 Order name: CBC with Diff; Complete Time: 13:27 [facility] 12/11 12:26 Order name: Magnesium; Complete Time: 13:27 [facility] 12/11 12:26 Order name: NT PRO-BNP; Complete Time: 13:27 [facility] 12/11 12:26 Order name: PT-INR; Complete Time: 13:27 [facility] 12/11 12:26 Order name: Ptt, Activated; Complete Time: 13:27 [facility] 12/11 12:26 Order name: Troponin (emerg Dept Use Only); Complete Time: 13:27 [facility] 12/11 12:26 Order name: XRAY Chest (1 view); Complete Time: 14:57 [facility] 12/11 12:26 Order name: EKG; Complete Time: 12:27 kdr 12/11 12:26 Order name: Cardiac monitoring; Complete Time: 12:30 kdr 12/11 12:26 Order name: EKG - Nurse/Tech; Complete Time: 12:30 kdr 12/11 12:28 Order name: Urine Dipstick--Ancillary (enter results); Complete Time: 13:27 eb 12/11 12: Order name: IV Saline Lock; Complete Time: 12:30 kdr 12/11 12: Order name: Labs collected and sent; Complete Time: 12:30 kdr 12/11 12: Order name: O2 Per Protocol; Complete Time: 12:30 kdr 12/11 12: Order name: O2 Sat Monitoring; Complete Time: 12:30 kdr 12/11 12: Order name: Urine Dipstick-Ancillary (obtain specimen); Complete Time: 14:04 kdr Administered Medications: 15:38 Drug: Lasix 60 mg Route: IVP; Site: right antecubital; ae1 16:13 Follow up: Response: Other; patient up to bathroom 3 times to void. ae1 Disposition: 12/11/17 15:20 Hospitalization ordered by Jeniffer Hernandez for Observation. Preliminary diagnosis is Combined systolic (congestive) and diastolic (congestive) heart failure. - Bed requested for Telemetry/MedSurg (observation). - Status is Observation. ae1 - Condition is Fair. - Problem is new. - Symptoms have improved. UTI on Admission? No Signatures: Dispatcher [employer] EDMS Angel Fowler MD MD [facility] Bree Castillo RN RN Jose Miguel Hurt RN RN Rosalio Yancey RN RN ae1 Corrections: (The following items were deleted from the chart) 15:54 15:20 Hospitalization Ordered by Jeniffer Hernandez MD for Observation. Preliminary ss diagnosis is Combined systolic (congestive) and diastolic (congestive) heart failure. Bed requested for Telemetry/MedSurg (observation). Status is Observation. Condition is Fair. Problem is new. Symptoms have improved. UTI on Admission? No. kdr 16:42 15:54 12/11/2017 15:20 Hospitalization Ordered by Jeniffer Hernandez MD for Observation. ae1 Preliminary diagnosis is Combined systolic (congestive) and diastolic (congestive) heart failure. Bed requested for Telemetry/MedSurg (observation). Status is Observation. Condition is Fair. Problem is new. Symptoms have improved. UTI on Admission? No. ss
[2017-12-11] MEDS ORDERED: FUROSEMIDE 40 MG/4 ML VIAL ONE (15:38)
[2017-12-11] MEDS ORDERED: FUROSEMIDE 20 MG/ 2ML VIAL ONE (15:38)
[2017-12-11] MEDS ORDERED: ACETAMINOPHEN 500 MG TAB PO PRN (16:36)
[2017-12-11] MEDS: INSULIN -REGULAR HUMAN 50 UNIT/0.5 ML ML SQ SCH ×2 (16:36→21:00)
[2017-12-11] MEDS ORDERED: ONDANSETRON 4 MG/2 ML VIAL IV PRN (16:36)
--- NOTE | 2017-12-11 16:44 | P.HP ---
Certification for Inpatient Patient admitted to: Observation With expected LOS: <2 Midnights Patient will require the following post-hospital care: None Practitioner: I am a practitioner with admitting privileges, knowledge of patient current condition, hospital course, and medical plan of care. Services: Services provided to patient in accordance with Admission requirements found in Title 42 Section 412.3 of the Code of Federal Regulations Patient History Date of Service: 12/11/17 Primary Care Provider: Dr Nicholson Reason for admission: SOB History of Present Illness: This is a 57-year-old female with significant past medical history of diabetes, hypertension, CHF, defer but later placed in 2014, obstructive sleep apnea, morbid obesity who presented to the ED complaining of having some shortness of breath. Patient stated that she woke up last night around 2:00 a.m. gasping for air and was unable to breathe appropriately and the she decided to come to the ER. Patient stated that she has been compliant with her medication however her diet recently has not been really good and she has been consuming a lot of milk. Patient stated that 2 months ago she has had a obstructive sleep apnea study done where she was diagnosed with DEE DEE and was asked to get a CPAP machine however she has not been successfully able to get the CPAP machine as of yet. She states that at night time it becomes really hard for her to breathe and she starts noticing palpitation along with shortness of breath worsening. Patient stated that she has also noticed that her feet have been swollen more than usual recently. No other complaints to offer at this time. Denies having any chest pain nausea vomiting abdominal pain or any other associated symptoms. In the ER patient had extensive lab work done which was consistent with CHF exacerbation and patient was thus referred over for admission for further care. Allergies Penicillins Allergy (Mild, Verified 06/21/11 14:00) Hives Home medications list reviewed: Yes Home Medications: Lisinopril 06/21/11 - Past Medical/Surgical History Has patient received pneumonia vaccine in the past: No -: HTN -: DM -: CHF -: AICD placement -: DEE DEE -: Obesity -: AICD placement 2014 - Family History Family History: Reviewed- Non-Contributory - Social History Smoking Status: Never smoker Smoking therapy provided: No Patient receptive to therapy: No Alcohol use: No CD- Drugs: No Caffeine use: No Review of Systems General: As per HPI Physical Examination - Physical Exam General: Alert, Oriented x3, Mild distress HEENT: Atraumatic Neck: Supple, 2+ carotid pulse no bruit, No LAD, Without JVD or thyroid abnormality Respiratory: Normal air movement, Crackles/rales Cardiovascular: Regular rate/rhythm, Normal S1 S2 Gastrointestinal: Normal bowel sounds, Soft and benign, Non-distended, No tenderness Musculoskeletal: Swelling Integumentary: No rashes Neurological: Normal speech (2+ edema), Normal tone Lymphatics: No axilla or inguinal lymphadenopathy - Studies Laboratory Data (last 24 hrs) 12/11/17 12:26: PT 13.4 H, INR 1.13, APTT 29.1 12/11/17 12:26: WBC 6.7, Hgb 12.4, Hct 37.7, Plt Count 162 12/11/17 12:26: Sodium 142, Potassium 3.3 L, BUN 12, Creatinine 0.60, Glucose 134 H, Magnesium 1.9, Total Bilirubin 0.7, AST 15, ALT 28, Alkaline Phosphatase 68 Assessment and Plan - Problems (Diagnosis) (1) Acute CHF Current Visit: Yes Status: Acute Plan: Acute CHF exacerbation on chronic congestive heart failure class 4 with AICD placement -IV Lasix b.i.d. -fluid restrictions at 1L -will get an echocardiogram done here in the hospital -will repeat lab work in the morning -cardiology consulted Qualifiers: Heart failure type: systolic Qualified Code(s): I50.21 - Acute systolic ( congestive) heart failure (2) HTN (hypertension) Current Visit: Yes Status: Chronic Plan: Will restart home medication Qualifiers: Hypertension type: essential hypertension Qualified Code(s): I10 - Essential (primary) hypertension (3) Diabetes Current Visit: Yes Status: Chronic Plan: Insulin sliding scale Qualifiers: Diabetes mellitus type: type 2 Diabetes mellitus prison insulin use: without prison use Diabetes mellitus complication status: without complication Qualified Code(s): E11.9 - Type 2 diabetes mellitus without complications (4) DEE DEE (obstructive sleep apnea) Current Visit: Yes Status: Chronic Plan: Patient currently does not have any CPAP machine at home. Will get pulmonology outpatient consult for patient to get her CPAP machine at home and appropriate followup. (5) Morbid (severe) obesity due to excess calories Current Visit: Yes Status: Chronic Discharge Plan: Home Plan to discharge in: 24 Hours - Advance Directives Does patient have a Living Will: No Does patient have a Durable POA for Healthcare: No - Code Status/Comfort Care Code Status Assessed: Yes Critical Care: No
[2017-12-11] MEDS ORDERED: FUROSEMIDE 40 MG/4 ML VIAL IV SCH (17:00)
[2017-12-11] MEDS ORDERED: POTASSIUM 25 MEQ EFFERV TAB PO ONE (18:00)
[2017-12-11] MEDS: ENOXAPARIN 40 MG/0.4 ML SQ SCH (18:09)
--- NOTE | 2017-12-11 19:06 | EKG ---
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
[2017-12-12] MEDS ORDERED: POTASSIUM 25 MEQ EFFERV TAB PO ONE (01:14)
[2017-12-12] MEDS: INSULIN -REGULAR HUMAN 50 UNIT/0.5 ML ML SQ SCH ×2 (07:30→11:30)
[2017-12-12] MEDS ORDERED: FUROSEMIDE 40 MG/4 ML VIAL IV SCH (09:00)
[2017-12-12 09:16] LABS: Absolute Lymphocytes (CBC) 1.8 K/uL (0.7-4.9); Absolute Monocytes 0.4 K/uL (0.1-1.3); Absolute Neutrophil 3.8 K/uL (1.8-8.0); Basophils % 0.8 % (0-1.3); Eosinophils % 1.6 % (0-4.4); Hematocrit 37.2 % (36.0-45.0); Lymphocytes % 28.9 % (15.3-44.8); MCH 27.4 pg (27.0-35.0); MCV 80.6 fL (80-100); MPV 10.7 fL (7.6-11.3); Monocytes % 6.8 % (3.3-12.3); RBC Red Blood Cell Count 4.62 M/uL (3.86-4.86)
[2017-12-12 09:19] LABS: ALT/SGPT 27 U/L (12-78); AST/SGOT 16 U/L (15-37); Albumin 3.5 g/dL (3.4-5.0); Alkaline Phosphatase 63 U/L (45-117); BUN Blood Urea Nitrogen 12 mg/dL (7-18); Bicarbonate 31 mmol/L (21-32); Bilirubin Total 0.9 mg/dL (0.2-1.0); Glucose Level 103 mg/dL (74-106); NT PRO-BNP 3280 pg/mL (<125); Potassium 3.6 mmol/L (3.5-5.1); Protein, Total 7.2 g/dL (6.4-8.2); Sodium Level 142 mmol/L (136-145)
[2017-12-12 09:22] VITALS: BMI 48.4
--- NOTE | 2017-12-12 09:48 | RAD REPORT ---
EXAM DESCRIPTION: RAD - Chest Pa And Lat (2 Views) - 12/12/2017 9:26 am CLINICAL HISTORY: CHF, shortness of breath COMPARISON: December 11 TECHNIQUE: PA and lateral views of the chest were obtained. FINDINGS: The lungs are clear of peripheral mass or consolidation. Interstitial markings are mildly prominent. Pulmonary vasculature within normal limits. Mild cardiomegaly is present. Pacemaker/defibr illator is in place. No pleural effusion or pneumothorax seen. No acute bony finding noted. No ao rtic abnormality. IMPRESSION: Mild cardiomegaly without additional findings of significant failure or volume overload. Vasculature and lung markings have decreased slightly in prominence since December 11.
[2017-12-12] MEDS: ENOXAPARIN 40 MG/0.4 ML SQ SCH (10:13)
--- NOTE | 2017-12-12 11:56 | P.SSS ---
Patient History Date of Service: 12/12/17 Primary Care Provider: Dr Nicholson Reason for admission: SOB History of Present Illness: This is a 57-year-old female with significant past medical history of diabetes, hypertension, CHF, defer but later placed in 2014, obstructive sleep apnea, morbid obesity who presented to the ED complaining of having some shortness of breath. Patient stated that she woke up last night around 2:00 a.m. gasping for air and was unable to breathe appropriately and the she decided to come to the ER. Patient stated that she has been compliant with her medication however her diet recently has not been really good and she has been consuming a lot of milk. Patient stated that 2 months ago she has had a obstructive sleep apnea study done where she was diagnosed with DEE DEE and was asked to get a CPAP machine however she has not been successfully able to get the CPAP machine as of yet. She states that at night time it becomes really hard for her to breathe and she starts noticing palpitation along with shortness of breath worsening. Patient stated that she has also noticed that her feet have been swollen more than usual recently. No other complaints to offer at this time. Denies having any chest pain nausea vomiting abdominal pain or any other associated symptoms. In the ER patient had extensive lab work done which was consistent with CHF exacerbation and patient was thus referred over for admission for further care. Allergies Penicillins Allergy (Mild, Verified 06/21/11 14:00) Hives Home Medications: Aspirin [Lo-Dose Aspirin EC] 81 mg PO DAILY 12/11/17 Carvedilol 12.5 mg PO BEDTIME 12/11/17 Furosemide 40 mg PO DAILY 12/11/17 Glimepiride 2 mg PO BEDTIME 12/11/17 Lisinopril 40 mg PO DAILY 12/11/17 Metformin HCl 500 mg PO BID 12/11/17 Potassium Oral Tab [Klor-Con 10 mEq Tab*] 10 meq PO DAILY 12/11/17 - Past Medical/Surgical History Has patient received pneumonia vaccine in the past: Yes Diabetic: Yes -: HTN -: DM -: CHF -: AICD placement -: DEE DEE -: Obesity -: AICD placement 2014 -: cholecystectomy -: vein surgery - Family History Family History: Reviewed- Non-Contributory - Social History Smoking Status: Never smoker Alcohol use: No CD- Drugs: No Caffeine use: Yes Place of Residence: Home Review of Systems General: As per HPI Physical Examination - Vital Signs Temperature: 97.3 F Blood Pressure: 126/83 Pulse: 70 Respirations: 20 Pulse Ox (%): 97 - Physical Exam General: Alert, In no apparent distress HEENT: Atraumatic, PERRLA, Mucous membr. moist/pink, EOMI, Sclerae nonicteric Neck: Supple, 2+ carotid pulse no bruit, No LAD, Without JVD or thyroid abnormality Respiratory: Clear to auscultation bilaterally, Normal air movement Cardiovascular: Regular rate/rhythm, Normal S1 S2 Gastrointestinal: Normal bowel sounds, No tenderness Musculoskeletal: No tenderness Integumentary: No rashes Neurological: Normal gait, Normal speech, Normal strength at 5/5 x4 extr, Normal tone, Normal affect Lymphatics: No axilla or inguinal lymphadenopathy - Studies Laboratory Data (last 24 hrs) 12/11/17 12:26: PT 13.4 H, INR 1.13, APTT 29.1 12/11/17 12:26: WBC 6.7, Hgb 12.4, Hct 37.7, Plt Count 162 12/11/17 12:26: Sodium 142, Potassium 3.3 L, BUN 12, Creatinine 0.60, Glucose 134 H, Magnesium 1.9, Total Bilirubin 0.7, AST 15, ALT 28, Alkaline Phosphatase 68 - Diagnosis (Problem(s)) (1) Acute CHF Onset Date: 12/12/17 Current Visit: Yes Status: Resolved Qualifiers: Heart failure type: systolic Qualified Code(s): I50.21 - Acute systolic ( congestive) heart failure (2) HTN (hypertension) Onset Date: 12/12/17 Current Visit: Yes Status: Chronic Qualifiers: Hypertension type: essential hypertension Qualified Code(s): I10 - Essential (primary) hypertension (3) Diabetes Onset Date: 12/12/17 Current Visit: Yes Status: Chronic Qualifiers: Diabetes mellitus type: type 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 Patient was given IV Lasix and had marked improvement in 24 hr. Patient was able to breathe better without any dyspnea. Patient has bilateral lower extremity edema was also her. Patient then was discharged home under stable condition was asked to follow up with the Cardiology in about 1-2 weeks post discharge. Patient initially had an echocardiogram ordered here however stocking with patient's maker up folding patient did have a recent echocardiogram with no acute findings and thus the carrier g here in the hospital was canceled. Patient was notified of this and was thus discharged home under stable condition. Of note patient did have a sleep study done in [place] for which she was told that she is positive for obstructive sleep apnea and uses CPAP machine however no machine was delivered to her house. An attempt was made to contact the facility in curriculum and instruction specialist was notified to see if patient can be plugged into our system to get the CPAP arrange for her as this could be the reason why she has been having CHF exacerbation. Control Specialist provided patient with appropriate phone numbers and patient was also given a followup appointment with a sales solutions representative. Patient agreed with the plan and thus was discharged under stable condition - Disposition Disposition: ROUTINE DISCHARGE Condition: GOOD Patient Discharge Instructions: Please f.u with Dr Arce in the clinic in 1 to 2 days post discharge. -You will need to be setup with get Sleep study results for your CPAP Diet: Regular Activity: Ad sergei
[2017-12-12 12:14] VITALS: BP 121/69; TEMP 97
--- NOTE | 2017-12-12 12:17 | CON ---
Identification: A 57-year-old woman. Chief Complaint: Dyspnea. History Of Present Illness: About a week ago, the patient started on a diet medication, she does not know the name of it, and we do not have any record of it. Shortly after that she started feeling mo re short of breath. The patient has an underlying nonischemic cardiomyopathy. She has a defibrillat or. She has had a cardiac cath that shows normal coronaries, and she normally takes lisinopril, Lasi x, carvedilol, glimepiride, and metformin. She has been under good control with her heart failure, b ut about a week ago she started gaining weight, retaining fluid, noticing her ankles are swelling, an d she is short of breath with mild exertion, short of breath with lying flat. She feels better now. Since she has had a diuresis, she has lost about 7 pounds overnight. Allergies: SHE REPORTS NO ALLERGIES. Social History: Uses no tobacco. Past Medical History: Nonischemic cardiomyopathy, defibrillator, diabetes, congestive heart failure, systolic. Physical Examination: General: She is alert, oriented, pleasant, not in distress. Obese. Lungs: Clear. Yesterday, they were crackly in the bases according to other examiners, that seems to have resolved. Heart: Does not reveal a significant murmur. There is probably an S4 gallop. No diastolic murmur. Abdomen: Soft. Extremities: Mild edema. Impression: Ms. York has had diuresis. She seems to retain fluid. I have asked her to not take t he diet pill. She started a week ago to keep her sodium intake under 2000 mg and to follow up with Carlos Robledo in the near future. I think she is stable to be discharged at this point. LINCOLN/MELANIE Voice ID: [id number] Report ID: [id number]
[2017-12-12 13:35] VITALS: O2SAT 94
== END 2017-12-12 13:58 | disposition home or self-care (01) ==
LOC: ER 11:58 → ERHOLD 15:27 → 2ND 16:31
PROVIDERS: ADMIT Family Medicine; ATTEND Family Medicine
DX: I11.0 Hypertensive heart disease with heart failure (principal); I50.23 Acute on chronic systolic (congestive) heart failure; E11.9 Type 2 diabetes mellitus without complications; G47.33 Obstructive sleep apnea (adult) (pediatric); E66.01 Morbid (severe) obesity due to excess calories; Z68.42 Body mass index [BMI] 45.0-49.9, adult; Z95.810 Presence of automatic (implantable) cardiac defibrillator; Z88.0 Allergy status to penicillin
CPT/HCPCS: 36415; 71045; 71046; 80048; 80053; 80076; 81003; 82962 ×4; 83735; 83880 ×2; 84132; 84484; 85025 ×2; 85610; 85730; 93005; 94760; 96374; 99285; J1650 ×2; J1940; G0378

== ENCOUNTER 2018-04-20 16:34 | Emergency (ER) | payer OTHER ==
--- OUTSIDE RECORDS SUMMARY | 2018-04-20 16:36 | XMS REPORT ---
:1960 Author Organization [facility] Address [address] [place] [address] Care Team Providers Name Role Phone JACQUI [...] Facility Department ID 2017-07-11 2017-07-11 [facility] [id number] 17:58:00 17:58:00 JACQUI Results Test Description Test Time Test Comments Text Results Atomic Results Result Comments Lipid Profile 2017-07-11 22:09:00 Test Item Value Reference Range Comments Cholesterol (test code=CHOL) 107 mg/dL 0-200 Triglycerides (test code=TRIG) 76 mg/dL 9-200 HDL (test code=HDL) 36 mg/dL 50-60 Chol/HDL (test code=CHOLPHDL) 3.0 Ratio 0.0-4.4 LDL, Calculated (test 56 0-130 (NOTE)RISK OF HEART DISEASEPublished code=LDLC) by [place] Heart AssociationAnalyte Optimal Boderline Increased RiskCHOL <200 200-239 >240TRIG <150 150-199 >200HDL Male: >60 <40HDL Female: >60 <50LDL <100 130-159 >160LDL NEAR OPTIMAL IS 100-129 VLDL (test code=VLDL) 15 mg/dL 5-40 LDL/HDL (test code=LDLPHDL) 2 Comprehensive Metabolic [id number] 22:09:00 Test Item Value Reference Range Comments [...] race is not provided, and the patient isAfrican-Romanian, multiply by 1.212. If sex is not provided, and thepatient is female, multiply by 0.742. Results for patients <18 years ofage have not been validated by the MDRD study and should be interpretedwith caution.eGFR Result Interpretation:eGFR > or=60 is in the Normal RangeeGFR < 60 may mean kidney diseaseeGFR < 15 may mean kidney failureRanges recommended by the National Kidney Foundation,http://nkdep.nih .gov [id number] 22:05:00 Test Item Value Reference Range Comments NT ProBnp (test code=PBNP) 1920 pg/mL 0-124 CBC with [id number] 18:24:00 Test Item Value Reference Range Comments [...] Lymph Abs (test code=ALYMPH) 1.4 K/cumm 0.5-4.6 [place] Abs (test code=AMONO) 0.3 K/cumm 0.0-1.2 Eos Abs (test code=AEOS) 0.09 K/cumm 0.00-0.74 Baso Abs (test code=ABASO) 0.0 K/cumm 0.00-0.21
--- OUTSIDE RECORDS SUMMARY | 2018-04-20 16:36 | XMS REPORT ---
[...] Problem Coronary artery disease involving I25.10 Active [place] coronary artery of [place] heart, angina presence unspecified Assessment Uncontrolled type [...] Assessment Coronary artery disease involving I25.10 Active [place] coronary artery of [place] heart, angina presence unspecified Problem Pain in [...] End Status Dosage System Date Date Lisinopril [facility] 40296440500 40 MG Orally Active 1 tablet Once a day Coreg [facility] 49873271652 12.5 MG Orally Active 1 tablet Once daily Furosemide ND 06664027957 40 MG Orally Active 1 tablet Once a day in am Klor-Con 10 [facility] 36330631315 10 MEQ Orally Jun 01, Active 1 tablet Once a day 2018 Metformin HCl ND 80987458420 500 MG Orally Active 1 tablet Twice a day with meals Macario Aspirin [facility] 95122669301 81 MG Orally Active 1 tablet EC Low Dose Once a day Glimepiride [facility] 17748145663 2 MG Orally Once Active 1 tablet a day Tylenol # 3 ND 0 300/30mg PO Once December 03, Jan 02, Active 1 tablet daily in evening 2017 2018 as needed for severe pain Results No Known Results Summary Purpose eClinicalWorks Submission
--- OUTSIDE RECORDS SUMMARY | 2018-04-20 16:36 | XMS REPORT | Clinical Summary ---
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, RPSGT 11/01/2017 Hospital Encounter Chin-Cheri, Morbid obesity (HCC); Khadijah Acosta MD Encounter for pre-operative cardiovascular clearance; Pacemaker; Chronic congestive heart failure, unspecified heart failure type (HCC); Past use of tobacco; Sleep disorder breathing 10/20/2017 Orders Only Ana Gonzalez, Morbid obesity (HCC) (Primary Dx); 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 Last Filed Vital Signs Not on file Plan of Treatment Health Maintenance Due Date Last Done Comments INFLUENZA VACCINE 02/16/2018 Procedures Procedure Name Priority Date/Time Associated Diagnosis Comments POLYSOMNOGRAPHY REPORT - 11/28/2017 1:31 PM SCAN CDT POLYSOMNOGRAPHY REPORT - 11/07/2017 12:01 PM SCAN CDT after 04/19/2017 Results POLYSOMNOGRAPHY REPORT - SCAN (11/28/2017 1:31 PM CDT) Narrative Performed At POLYSOMNOGRAPHY REPORT - SCAN (11/07/2017 12:01 PM CDT) Narrative Performed At after 04/19/2017 Insurance Payer Benefit Plan / Group Subscriber ID Type Phone Address [employer] - UNITED MEDICARE HMO xxxxxxxxx MEDICARE [place] CARE MEDICAID MEDICAID OF [place] xxxxxxxxx Medicaid
--- OUTSIDE RECORDS SUMMARY | 2018-04-20 16:36 | XMS REPORT ---
[...] Status Dosage System Date Date Glimepiride ND 38151862488 2 MG Orally Once Active 1 tablet a day Macario Aspirin ND 52545859031 81 MG Orally Active 1 tablet EC Low Dose Once a day Lisinopril ND 85891630490 40 MG Orally Active 1 tablet Once a day Metformin HCl ND 72938201276 500 MG Orally Active 1 tablet Twice a day with meals Furosemide ND 51200564974 40 MG Orally Active 1 tablet Once a day in am Klor-Con 10 ND 22043219268 10 MEQ Orally Oct 01, Active 1 tablet Once a day 2018 Coreg [facility] 20981057039 12.5 MG Orally Active 1 tablet Once daily Results Name Result Date Reference Range Unit Abnormality Flag FLU TEST ----A Negative [id number] ----B Negative [id number] STREP A RAPID ----Result Negative [id number] Summary Purpose eClinicalWorks Submission
--- OUTSIDE RECORDS SUMMARY | 2018-04-20 16:36 | XMS REPORT ---
[...] End Status Dosage System Date Date Furosemide [facility] 50488639891 40 MG Orally Active 1 tablet Once a day in am Metformin HCl ND 23483552978 500 MG Orally Active 1 tablet Twice a day with meals Lisinopril [facility] 25923351144 40 MG Orally Active 1 tablet Once a day Klor-Con 10 [facility] 74928464908 10 MEQ Orally Jun 01, Active 1 tablet Once a day 2018 Tylenol # 3 [facility] 0 300/30mg PO Once December 03Jan 02, Active 1 tablet daily in evening 2017 2017 as needed for severe pain Coreg [facility] 19107486308 12.5 MG Orally Active 1 tablet Once daily Glimepiride [facility] 12018852017 2 MG Orally Once Active 1 tablet a day Macario Aspirin [facility] 24169363201 81 MG Orally Active 1 tablet EC Low Dose Once a day Results No Known Results Summary Purpose eClinicalWorks Submission
--- OUTSIDE RECORDS SUMMARY | 2018-04-20 16:37 | XMS REPORT ---
:1960 Author Organization eClinicalWorks Care Team Providers Name Role Phone Aleah Nicholson Provider Role Unavailable Allergies No Known Allergies Problems Problem Type Condition Code Onset Dates Condition Status Problem Diabetes type 2, controlled E11.9 Active Problem Peripheral vascular disease I73.9 Active Problem Depression F32.9 Active Problem Hypertension I10 Active Problem Edema R60.9 Active Problem Heart disease I51.9 Active Assessment Polyarthralgia M25.50 Active Problem Pain in right hand M79.641 Active Problem Varicose veins of bilateral lower I83.813 Active extremities with pain Problem Morbid (severe) obesity due to E66.01 Active excess calories Problem Multiple falls R29.6 Active Problem Pain in left knee M25.562 Active Problem AICD (automatic Z95.810 Active cardioverter/defibrillator) present Problem Other chronic pain G89.29 Active Problem Polyarthralgia M25.50 Active Problem Chronic congestive heart failure, I50.9 Active unspecified heart failure type Problem Varicose veins of both lower I83.93 Active extremities, unspecified whether complicated Problem Congestive heart failure I50.9 Active Problem CAD (coronary artery disease) I25.10 Active Problem Pain of left hand M79.642 Active Problem Shortness of breath R06.02 Active Assessment AICD (automatic Z95.810 Active cardioverter/defibrillator) present Problem Cardiomyopathy I42.9 Active Problem Pain in right knee M25.561 Active Assessment Multiple falls R29.6 Active Problem Chest pain, unspecified type R07.9 Active Assessment Pedal edema R60.9 Active Problem Cardiomyopathy, unspecified type I42.9 Active Assessment Varicose vein of leg I83.93 Active Problem Tremor of both hands R25.1 Active Assessment Tremor of both hands R25.1 Active Problem Coronary artery disease involving I25.10 Active [place] coronary artery of [place] heart, angina presence unspecified Assessment Shortness of breath R06.02 Active Problem Uncontrolled type 2 diabetes E11.65 Active mellitus without complication, without long-term current use of insulin Problem Abnormal finding on mammography R92.8 Active Assessment Congestive heart failure I50.9 Active Problem Body mass index (BMI) of 45.0-49.9 Z68.42 Active in adult Assessment Chest pain R07.9 Active Problem Peripheral edema R60.9 Active Assessment CAD (coronary artery disease) I25.10 Active Problem Neck pain M54.2 Active Assessment Cardiomyopathy I42.9 Active Problem Acute pain of left shoulder M25.512 Active Problem Hypertension, unspecified type I10 Active Problem Acute nonintractable headache, R51 Active unspecified headache type Medications No Known Medications Results No Known Results Summary Purpose eClinicalWorks Submission
--- OUTSIDE RECORDS SUMMARY | 2018-04-20 16:37 | XMS REPORT ---
:1960 [facility] Team Providers Name Role Phone Aleah Nicholson Provider Role Unavailable Allergies, Adverse Reactions, Alerts Substance Reaction Event Type penicillin Info Not Available Drug Allergy Problems Problem Type Condition Code Onset Dates Condition Status Problem Depression F32.9 Active Problem Hypertension I10 Active Problem Heart disease I51.9 Active Problem Edema R60.9 Active Problem Pain of left hand M79.642 Active Problem Body mass index (BMI) of 45.0-49.9 Z68.42 Active in adult Problem Peripheral edema R60.9 Active Problem Uncontrolled type 2 diabetes E11.65 Active mellitus without complication, without long-term current use of insulin Problem Abnormal finding on mammography R92.8 Active Problem Tremor of both hands R25.1 Active Problem Hypertension, unspecified type I10 Active Problem Varicose veins of both lower I83.93 Active extremities, unspecified whether complicated Problem Pain in right hand M79.641 Active Problem Chronic congestive heart failure, I50.9 Active unspecified heart failure type Problem AICD (automatic Z95.810 Active cardioverter/defibrillator) present Problem Cardiomyopathy, unspecified type I42.9 Active Problem Primary osteoarthritis of right M17.11 Active knee Problem CAD (coronary artery disease) I25.10 Active Problem Pain in left knee M25.562 Active Problem Morbid (severe) obesity due to E66.01 Active excess calories Problem Pain, joint, knee, right M25.561 Active Problem Varicose veins of bilateral lower I83.813 Active extremities with pain Problem Polyarthralgia M25.50 Active Problem Multiple falls R29.6 Active Problem Cardiomyopathy I42.9 Active Problem Congestive heart failure I50.9 Active Problem Peripheral vascular disease I73.9 Active Problem Shortness of breath R06.02 Active Problem Diabetes type 2, controlled E11.9 Active Problem Neck pain M54.2 Active Assessment URI, acute J06.9 Active Problem Other chronic pain G89.29 Active Problem Pain in right knee M25.561 Active Problem Chest pain, unspecified type R07.9 Active Assessment Acute pharyngitis, unspecified J02.9 Active etiology Problem Coronary artery disease involving I25.10 Active [place] coronary artery of [place] heart, angina presence unspecified Problem Acute pain of left shoulder M25.512 Active Problem Acute nonintractable headache, R51 Active unspecified headache type Medications Medication Code Code Instructions Start End Status Dosage System Date Date Furosemide [facility] 25671319578 40 MG Orally Active 1 tablet Once a day in am Macario Aspirin EC [facility] 51356615636 81 MG Orally Active 1 tablet Low Dose Once a day Clarithromycin [facility] 67930966509 500 MG Orally Jan 30Jan Active 1 tablet every 12 hrs 2017 Klor-Con 10 [facility] 29782835333 10 MEQ Orally Jun 01, Active 1 tablet Once a day 2018 Glimepiride [facility] 51737948728 2 MG Orally Active 1 tablet Once a day Coreg [facility] 34330320974 12.5 MG Orally Active 1 tablet Once daily Metformin HCl [facility] 17392731708 500 MG Orally Active 1 tablet Twice a day with meals Lisinopril [facility] 09355147153 40 MG Orally Active 1 tablet Once a day Results Name Result Date Reference Range Unit Abnormality Flag STREP A RAPID ----Result Negative [id number] Summary Purpose eClinicalWorks Submission
--- OUTSIDE RECORDS SUMMARY | 2018-04-20 16:37 | XMS REPORT ---
[...] E11.9 Active Problem Neck pain M54.2 Active Problem Other chronic pain G89.29 Active Problem Pain in right knee M25.561 Active Problem Chest pain, unspecified type R07.9 Active Problem Coronary artery disease involving I25.10 Active [place] coronary artery of [place] heart, angina presence unspecified Problem Acute pain of left shoulder M25.512 Active Problem Acute nonintractable headache, R51 Active unspecified headache type Medications No Known Medications Results No Known Results Summary Purpose eClinicalWorks Submission
--- OUTSIDE RECORDS SUMMARY | 2018-04-20 16:37 | XMS REPORT ---
:1960 Author Organization eClinicalWorks Care Team Providers Name Role Phone Aleah Nicholson Provider Role Unavailable Allergies No Known Allergies Problems Problem Type Condition Code Onset Dates Condition Status Problem Peripheral vascular disease I73.9 Active Problem [...] of 45.0-49.9 Z68.42 Active in adult Problem AICD (automatic Z95.810 Active cardioverter/defibrillator) present Problem Pain of left hand M79.642 Active Problem Tremor of both hands R25.1 Active Problem Cardiomyopathy, unspecified type I42.9 Active Problem Coronary artery disease involving I25.10 Active [place] coronary artery of [place] heart, angina presence unspecified Problem Chest pain, unspecified type R07.9 Active Problem Varicose veins of bilateral lower I83.813 Active extremities with pain Problem Morbid (severe) obesity due to E66.01 Active excess calories Problem Peripheral edema R60.9 Active Problem Pain in right hand M79.641 Active Problem Pain in right knee M25.561 Active Problem Shortness of breath R06.02 Active Problem Pain in left knee M25.562 Active Problem Other chronic pain G89.29 Active Medications No Known Medications Results No Known Results Summary Purpose eClinicalWorks Submission
--- OUTSIDE RECORDS SUMMARY | 2018-04-20 16:37 | XMS REPORT ---
:1960 Author Organization eClinicalWorks Care Team Providers Name Role Phone Irvin Hinson Provider Role Unavailable Allergies, Adverse Reactions, Alerts [...] Active Problem Neck pain M54.2 Active Assessment Pain, joint, knee, right M25.561 Active Problem Other chronic pain G89.29 Active Problem Pain in right knee M25.561 Active Assessment Morbid (severe) obesity due to E66.01 Active excess calories Problem Chest pain, unspecified type R07.9 Active Assessment Primary osteoarthritis of right M17.11 Active knee Problem Coronary artery disease involving I25.10 Active [place] coronary artery of [place] heart, angina presence unspecified Problem Acute pain of left shoulder M25.512 Active Problem Acute nonintractable headache, R51 Active unspecified headache type Medications Medication Code Code Instructions Start End Status Dosage System Date Date Lisinopril [facility] 01294660637 40 MG Orally Active 1 tablet Once a day Metformin HCl [facility] 66259762955 500 MG Orally Active 1 tablet Twice a day with meals Klor-Con 10 [facility] 55346383687 10 MEQ Orally Jun 01, Active 1 tablet Once a day 2018 Glimepiride [facility] 66370022295 2 MG Orally Once Active 1 tablet a day Coreg [facility] 33653690840 12.5 MG Orally Active 1 tablet Once daily Macario Aspirin [facility] 83779689087 81 MG Orally Active 1 tablet EC Low Dose Once a day Furosemide [facility] 09503789255 40 MG Orally Active 1 tablet Once a day in am Results No Known Results Summary Purpose eClinicalWorks Submission
--- OUTSIDE RECORDS SUMMARY | 2018-04-20 16:37 | XMS REPORT ---
:1960 [facility] Team Providers Name Role Phone Aleah Nicholson Provider Role Unavailable Allergies, Adverse Reactions, Alerts Substance Reaction Event Type penicillin Info Not Available Drug Allergy Problems Problem Type Condition Code Onset Dates Condition Status Problem Heart disease I51.9 Active Problem Edema R60.9 Active Problem Pain in left knee M25.562 Active Problem Peripheral edema R60.9 Active Problem Other chronic pain G89.29 Active Problem Pain in right knee M25.561 Active Assessment Body mass index (BMI) of 40.0-44.9 Z68.41 Active in adult Problem Shortness of breath R06.02 Active Problem Pain in right hand M79.641 Active Problem Varicose veins of bilateral lower I83.813 Active extremities with pain Problem Cardiomyopathy, unspecified type I42.9 Active Problem Pain of left hand M79.642 Active Problem Chest pain, unspecified type R07.9 Active Problem Body mass index (BMI) of 45.0-49.9 Z68.42 Active in adult Problem Coronary artery disease involving I25.10 Active [place] coronary artery of [place] heart, angina presence unspecified Problem CAD (coronary artery disease) I25.10 Active Problem Tremor of both hands R25.1 Active Problem Morbid (severe) obesity due to E66.01 Active excess calories Problem Body mass index (BMI) of 40.0-44.9 Z68.41 Active in adult Problem Hypertension, unspecified type I10 Active Problem Abnormal finding on mammography R92.8 Active Assessment Acute pharyngitis, unspecified J02.9 Active etiology Problem Morbid obesity E66.01 Active Problem Uncontrolled type 2 diabetes E11.65 Active mellitus without complication, without long-term current use of insulin Assessment Hypertension, unspecified type I10 Active Problem Cardiomyopathy I42.9 Active Assessment Peripheral edema R60.9 Active Problem Congestive heart failure I50.9 Active Assessment Uncontrolled type 2 diabetes E11.65 Active mellitus without complication, without long-term current use of insulin Problem Primary osteoarthritis of right M17.11 Active knee Assessment Morbid obesity E66.01 Active Problem Pain, joint, knee, right M25.561 Active Problem Hypertension I10 Active Problem Acute pain of left shoulder M25.512 Active Problem Depression F32.9 Active Problem AICD (automatic Z95.810 Active cardioverter/defibrillator) present Problem Peripheral vascular disease I73.9 Active Problem Acute nonintractable headache, R51 Active unspecified headache type Problem Diabetes type 2, controlled E11.9 Active Problem Neck pain M54.2 Active Assessment URI, acute J06.9 Active Problem Varicose veins of both lower I83.93 Active extremities, unspecified whether complicated Problem Chronic congestive heart failure, I50.9 Active unspecified heart failure type Problem Multiple falls R29.6 Active Problem Polyarthralgia M25.50 Active Medications Medication Code Code Instructions Start End Status Dosage System Date Date Metformin HCl [facility] 20129851402 500 MG Orally Active 1 tablet Twice a day with meals Glimepiride [facility] 59709712541 2 MG Orally Once Active 1 tablet a day Coreg [facility] 45499465642 12.5 MG Orally Active 1 tablet Once daily Mcaario Aspirin [facility] 82682594222 81 MG Orally Active 1 tablet EC Low Dose Once a day Furosemide [facility] 64409166678 40 MG Orally Active 1 tablet Once a day in am Klor-Con [address] [facility] 34426802245 10 MEQ Orally Aneta Active 1 tablet Once a day [address] [facility] 34931374665 40 MG Orally Active 1 tablet Once a day Results Name Result Date Reference Range Unit Abnormality Flag FLU TEST ----A Negative [id number] ----B Negative [id number] STREP A RAPID ----Result Negative [id number] Summary Purpose eClinicalWorks Submission
[2018-04-20 17:21] LABS: Absolute Monocytes 0.4 K/uL (0.1-1.3); Absolute Neutrophil 3.5 K/uL (1.8-8.0); Basophils % 0.7 % (0-1.3); Eosinophils % 1.6 % (0-4.4); Lymphocytes % 32.7 % (15.3-44.8); MCH 27.5 pg (27.0-35.0); MCV 83.6 fL (80-100); MPV 11.3 fL (7.6-11.3); Monocytes % 6.5 % (3.3-12.3); RBC Red Blood Cell Count 4.54 M/uL (3.86-4.86)
--- NOTE | 2018-04-20 17:25 | EKG ---
Test Date: 2018-04-20 Test Time: 16:57:34 Clinical Safety Specialist: MAU MEASUREMENT RESULTS: Intervals: Rate: 82 AK: 186 QRSD: 124 QT: 400 QTc: 467 [place]: P: 47 AK: 186 QRS: -24 T: 123 INTERPRETIVE STATEMENTS: Atrial-paced rhythm with frequent premature ventricular complexes Left ventricular hypertrophy with QRS widening and repolarization abnormality Abnormal ECG Compared to ECG 12/11/2017 12:36:21 Ventricular premature complex(es) now present Sinus rhythm no longer present Electronically Signed On 04-20-18 17:24:48 DIRECTOR [employer] by Papa Tellez
[2018-04-20 17:26] LABS: Protime INR 1.21
[2018-04-20 17:42] LABS: ALT/SGPT 30 U/L (12-78); AST/SGOT 10 U/L (15-37); Albumin 3.4 g/dL (3.4-5.0); Alkaline Phosphatase 75 U/L (45-117); BUN Blood Urea Nitrogen 16 mg/dL (7-18); Bicarbonate 26 mmol/L (21-32); Bilirubin Direct 0.2 mg/dL (0-0.2); Bilirubin Total 0.4 mg/dL (0.2-1.0); Glucose Level 142 mg/dL (74-106); Magnesium 2.2 mg/dL (1.8-2.4); NT PRO-BNP 1397 pg/mL (<125); Potassium 3.3 mmol/L (3.5-5.1); Protein, Total 7.1 g/dL (6.4-8.2); Sodium Level 144 mmol/L (136-145); Troponin (Emerg Dept Use Only) < 0.02 ng/mL (0.0-0.045)
--- NOTE | 2018-04-20 18:30 | RAD REPORT ---
EXAM DESCRIPTION: RAD - Chest Single View - 04/20/2018 6:25 pm CLINICAL HISTORY: CHEST PAIN Chest pain. COMPARISON: Chest Pa And Lat (2 Views) dated 12/12/2017; Chest Single View dated 12/11/2017; Chest Pa And Lat (2 Views) dated 09/07/2017; Chest Pa And Lat (2 Views) dated 08/18/2015 FINDINGS: Portable technique limits examination quality. Mild interstitial pulmonary edema is seen. The heart is moderately prominent in size with dual lead p acer/defibrillator device present. No displaced fractures. IMPRESSION: Mild CHF versus volume overload pattern.
[2018-04-20] MEDS ORDERED: POTASSIUM 25 MEQ EFFERV TAB ONE (18:59)
[2018-04-20] MEDS ORDERED: FUROSEMIDE 20 MG/ 2ML VIAL ONE ×2 (18:59→19:06)
--- NOTE | 2018-04-20 19:30 | ER ---
Nurse's Notes [facility] Name: Sukh York Age: 58 yrs Sex: Female : 1960 Arrival Date: 04/20/2018 Time: 16:37 Bed 2 Private MD: Aleah Nicholson Diagnosis: Weakness;Systolic (congestive) heart failure Presentation: 04/20 16:41 Presenting complaint: Patient states: Dizziness and shortness of breath especially when ss bending over that began 4 days ago. Pt was concerned her BP was low, but during triage her pulse is 37-45. Transition of care: patient was not received from another setting of care. Onset of symptoms was April 16, 2018. Risk Assessment: Do you want to hurt yourself or someone else? Patient reports no desire to harm self or others. Initial Sepsis Screen: Does the patient meet any 2 criteria? No. Patient's initial sepsis screen is negative. Does the patient have a suspected source of infection? No. Patient's initial sepsis screen is negative. Care prior to arrival: None. 16:41 Acuity: RADHA 2 ss 16:41 Method Of Arrival: Ambulatory ss Historical: - Allergies: 16:43 PENICILLINS; ss - PMHx: 16:43 Diabetes - NIDDM; Hypertension; CHF; ss - PSHx: 16:43 defibrillator; ss - Immunization history:: Adult Immunizations up to date. - Social history:: Smoking status: Patient/guardian denies using tobacco. - Ebola Screening: : Patient denies exposure to infectious person Patient denies travel to an Ebola-affected area in the 21 days before illness onset. Screenin:45 Abuse screen: Denies threats or abuse. Nutritional screening: No deficits noted. ca1 Tuberculosis screening: No symptoms or risk factors identified. Fall Risk Ambulatory Aid- Crutches/Cane/Walker (15 pts). Assessment: 16:45 General: Reports fatigue for >3 days. General: Appears in no apparent distress. ca1 comfortable, Behavior is calm, cooperative. Pain: Denies pain. Neuro: No deficits noted. Cardiovascular: Heart tones S1 S2 present Pulses are all present. Rhythm is irregular Chest pain is denied. Respiratory: Airway is patent Trachea midline Respiratory effort is even, Respiratory pattern is regular, symmetrical, Breath sounds are clear bilaterally. GI: No signs and/or symptoms were reported involving the gastrointestinal system. : No signs and/or symptoms were reported regarding the genitourinary system. EENT: No signs and/or symptoms were reported regarding the EENT system. Derm: Skin is intact, is healthy with good turgor, Skin is dry, Skin is pink, warm \T\ dry. Musculoskeletal: Range of motion: intact in all extremities, Swelling present in right foot and left foot. 16:45 Cardiovascular: Edema is 2+ to left toes and right toes. ca1 17:45 Reassessment: No changes from previously documented assessment. Patient is alert, ca1 oriented x 3, equal unlabored respirations, skin warm/dry/pink. Patient denies pain at this time. 19:10 General: Appears in no apparent distress. Behavior is calm, cooperative. Pain: Denies ea pain. Neuro: Level of Consciousness is awake, alert, obeys commands, Oriented to person, place, time. Cardiovascular: Patient's skin is warm and dry. Respiratory: Airway is patent Respiratory effort is even, unlabored, Respiratory pattern is regular, symmetrical, Breath sounds are clear bilaterally. Derm: Skin is intact, Skin is dry, Skin is pink, warm \T\ dry. 19:44 Reassessment: Patient is alert, oriented x 3, equal unlabored respirations, skin ea warm/dry/pink. Discharge instruction given to patient, verbalized the understanding of instruction. Patient denies pain at this time. Patient states feeling better. Vital Signs: 16:43 BP 131 / 69; Pulse 44; Resp 16; Temp 97.2(TE); Pulse Ox 98% on R/A; Weight 65.77 kg; Height 5 ft. 1 in. (154.94 cm); Pain 0/10; 17:47 BP 118 / 70; Pulse 83; Resp 18; Pulse Ox 100% on R/A; Pain 0/10; ca1 18:23 BP 135 / 95; Pulse 77; Resp 18; Pulse Ox 100% on R/A; ca1 19:30 BP 141 / 86; Pulse 78; Resp 18; Pulse Ox 99% ; Pain 0/10; ea 16:43 Body Mass Index 27.40 (65.77 kg, 154.94 cm) ED Course: 16:37 Patient arrived in ED. mr 16:38 Aleah Nicholson MD is Private Physician. mr 16:43 Triage completed. ss 16:43 Arm band placed on right wrist. ss 16:51 Adam Perkins MD is Attending Physician. gs 17:05 Inserted saline lock: 20 gauge in right antecubital area, using aseptic technique. ca1 17:15 EKG done, by fuel cell battery technician. reviewed by Adam Perkins MD. dt2 17:20 Bed in low position. Call light in reach. Side rails up X 1. bus driver/monitor on. Pulse ca1 ox on. Door closed. Warm blanket given. Head of bed elevated. 18:22 Chaparrita Pineda, DAY is Primary Nurse. ca1 18:26 XRAY Chest (1 view) In Process Unspecified. EDMS 19:10 Report given to DAY Brody and DYA Graves. ca1 19:29 Urine Dipstick--Ancillary (enter results) Sent. ea 19:43 No provider procedures requiring assistance completed. IV discontinued, intact, ea bleeding controlled, No redness/swelling at site. Pressure dressing applied. Administered Medications: 19:05 Drug: Potassium Effervescent Tablet 50 mEq Route: PO; jl7 19:29 Follow up: Response: No adverse reaction ea 19:05 Drug: Lasix 20 mg Route: IVP; Site: right antecubital; jl7 19:30 Follow up: Response: No adverse reaction ea Outcome: 19:29 Discharge ordered by . 19:43 Discharged to home ambulatory, with family. ea 19:43 Condition: improved 19:43 Discharge instructions given to patient, Instructed on discharge instructions, follow up and referral plans. Demonstrated understanding of instructions, follow-up care. 19:45 Patient left the ED. ea Signatures: Dispatcher [employer] EDWY Yakelin Jones Bree Castillo RN RN ss Leal, Jahala, RN RN jl7 Mary Grace Wnag RN RN ea Starr, Gregory, MD MD gs Teague, Danielle dt2 Chaparrita Pineda RN RN ca1 Corrections: (The following items were deleted from the chart) 17:23 17:23 Inserted saline lock: 20 gauge in right antecubital area, using aseptic ca1 technique. ca1 17:40 17:31 General: Appears in no apparent distress. comfortable, Behavior is calm, ca1 cooperative, ca1 17:40 17:31 Pain: Denies pain. ca1 ca1 17:40 17:31 General: Reports fatigue for >3 days, ca1 ca1 17: 17:31 Neuro: No deficits noted. ca1 ca1 : 17:31 Cardiovascular: Heart tones S1 S2 present Pulses are all present. Rhythm is ca1 irregular Chest pain is denied ca1 17:31 Respiratory: Airway is patent Trachea midline Respiratory effort is even, ca1 Respiratory pattern is regular, symmetrical, Breath sounds are clear bilaterally. ca1 17:31 GI: No signs and/or symptoms were reported involving the gastrointestinal system. ca1 ca1 17:31 : No signs and/or symptoms were reported regarding the genitourinary system. ca1ca1 : 17:31 EENT: No signs and/or symptoms were reported regarding the EENT system. ca1 ca1 : 17:31 Derm: Skin is intact, is healthy with good turgor, Skin is dry, Skin is pink, ca1 warm \T\ dry. ca1 : 17:31 Musculoskeletal: Range of motion: intact in all extremities, Swelling present in ca1 right foot and left foot ca1
--- NOTE | 2018-04-20 19:30 | EDPHYS ---
Physician Documentation [facility] Name: Sukh York Age: 58 yrs Sex: Female : 1960 Arrival Date: 04/20/2018 Time: 16:37 Bed 2 Private MD: Aleah Nicholson ED Physician Adam Perkins HPI: 04/20 19:23 This 58 yrs old Female presents to ER via Ambulatory with complaints of gs General Weakness. 19:23 Onset: The symptoms/episode began/occurred 5 day(s) ago. Context: occurred at home. gs Associated signs and symptoms: Pertinent positives: sob,falling. 19:24 Severity of symptoms: At their worst the symptoms were moderate in the emergency gs department the symptoms have improved moderately. The patient has experienced similar episodes in the past, several times. Historical: - Allergies: 16:43 PENICILLINS; ss - PMHx: 16:43 Diabetes - NIDDM; Hypertension; CHF; ss - PSHx: 16:43 defibrillator; ss - Immunization history:: Adult Immunizations up to date. - Social history:: Smoking status: Patient/guardian denies using tobacco. - Ebola Screening: : Patient denies exposure to infectious person Patient denies travel to an Ebola-affected area in the 21 days before illness onset. ROS: 19:24 All other systems are negative. gs Exam: 19:24 Head/Face: Normocephalic, atraumatic. Eyes: Pupils equal round and reactive to light, gs extra-ocular motions intact. Lids and lashes normal. Conjunctiva and sclera are non-icteric and not injected. Cornea within normal limits. Periorbital areas with no swelling, redness, or edema. ENT: Nares patent. No nasal discharge, no septal abnormalities noted. Tympanic membranes are normal and external auditory canals are clear. Oropharynx with no redness, swelling, or masses, exudates, or evidence of obstruction, uvula midline. Mucous membranes moist. Neck: Trachea midline, no thyromegaly or masses palpated, and no cervical lymphadenopathy. Supple, full range of motion without nuchal rigidity, or vertebral point tenderness. No Meningismus. Chest/axilla: Normal chest wall appearance and motion. Nontender with no deformity. No lesions are appreciated. Cardiovascular: Regular rate and rhythm with a normal S1 and S2. No gallops, murmurs, or rubs. Normal PMI, no JVD. No pulse deficits. Respiratory: Lungs have equal breath sounds bilaterally, clear to auscultation and percussion. No rales, rhonchi or wheezes noted. No increased work of breathing, no retractions or nasal flaring. Abdomen/GI: Soft, non-tender, with normal bowel sounds. No distension or tympany. No guarding or rebound. No evidence of tenderness throughout. Back: No spinal tenderness. No costovertebral tenderness. Full range of motion. Skin: Warm, dry with normal turgor. Normal color with no rashes, no lesions, and no evidence of cellulitis. MS/ Extremity: Pulses equal, no cyanosis. Neurovascular intact. Full, normal range of motion. Neuro: Awake and alert, GCS 15, oriented to person, place, time, and situation. Cranial nerves II-XII grossly intact. Motor strength 5/5 in all extremities. Sensory grossly intact. Cerebellar exam normal. Normal gait. 19:24 Constitutional: The patient appears alert, awake. 19:24 ECG was reviewed by the Attending Physician. Vital Signs: 16:43 BP 131 / 69; Pulse 44; Resp 16; Temp 97.2(TE); Pulse Ox 98% on R/A; Weight 65.77 kg; ss Height 5 ft. 1 in. (154.94 cm); Pain 0/10; 17:47 BP 118 / 70; Pulse 83; Resp 18; Pulse Ox 100% on R/A; Pain 0/10; ca1 18:23 BP 135 / 95; Pulse 77; Resp 18; Pulse Ox 100% on R/A; ca1 19:30 BP 141 / 86; Pulse 78; Resp 18; Pulse Ox 99% ; Pain 0/10; ea 16:43 Body Mass Index 27.40 (65.77 kg, 154.94 cm) ss MDM: 17:14 Patient medically screened. 19:24 Data reviewed: vital signs, nurses notes. Response to treatment: the patient's symptoms gs have markedly improved after treatment, and as a result, I will discharge patient. 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 04/20 17:04 Order name: Basic Metabolic Panel; Complete Time: 17:43 gs 04/20 17:04 Order name: CBC with Diff; Complete Time: 17:43 gs 04/20 17:04 Order name: LFT's; Complete Time: 17:43 gs 04/20 17:04 Order name: Magnesium; Complete Time: 17:43 gs 04/20 17:04 Order name: NT PRO-BNP; Complete Time: 17:43 gs 04/20 17:04 Order name: PT-INR; Complete Time: 17:43 gs 04/20 17:04 Order name: Troponin (emerg Dept Use Only); Complete Time: 17:43 gs 04/20 17:04 Order name: XRAY Chest (1 view); Complete Time: 18:45 gs 04/20 17:04 Order name: EKG; Complete Time: 17:32 gs 04/20 17:04 Order name: Cardiac monitoring; Complete Time: 17:18 gs 04/20 18:47 Order name: Urine Microscopic Only 04/20 19:28 Order name: Urine Dipstick--Ancillary (enter results) ri 04/20 17:04 Order name: EKG - Nurse/Tech; Complete Time: 17:49 gs 04/20 17:04 Order name: IV Saline Lock; Complete Time: 17:19 gs 04/20 17:04 Order name: Labs collected and sent; Complete Time: 17:19 gs 04/20 17:04 Order name: O2 Per Protocol; Complete Time: 17:19 gs 04/20 17:04 Order name: O2 Sat Monitoring; Complete Time: 17:19 gs 03 18:47 Order name: Urine Dipstick-Ancillary (obtain specimen); Complete Time: 19:29 gs EC:24 Rate is 82 beats/min. Rhythm is regular with Unifocal PVCs, Atrial paced. WV interval gs is normal. QRS interval is prolonged. T waves are Normal. Clinical impression: Abnormal EKG without significant change. Interpreted by me. Administered Medications: 19:05 Drug: Potassium Effervescent Tablet 50 mEq Route: PO; jl7 19:29 Follow up: Response: No adverse reaction ea 19:05 Drug: Lasix 20 mg Route: IVP; Site: right antecubital; jl7 19:30 Follow up: Response: No adverse reaction ea Disposition: 04/20/18 19:29 Discharged to Home. Impression: Weakness, Systolic (congestive) heart failure. - Condition is Stable. - Discharge Instructions: Weakness, Fatigue, Heart Failure, [id number]. - Medication Reconciliation Form, Thank You Letter, Antibiotic Education, Prescription Opioid Use form. - Follow up: Private Physician; When: 2 - 3 days; Reason: Re-evaluation by your physician. Signatures: Dispatcher [employer] EDMS Bree Castillo RN RN ss Genaro Kelley RN RN jl7 Mary Grace Wang RN RN ea Starr, Gregory, MD MD gs Corrections: (The following items were deleted from the chart) 19:45 19:29 04/20/2018 19:29 Discharged to Home. Impression: Weakness; Systolic (congestive) ea heart failure. Condition is Stable. Forms are Medication Reconciliation Form, Thank You Letter, Antibiotic Education, Prescription Opioid Use. Follow up: Private Physician; When: 2 - 3 days; Reason: Re-evaluation by your physician. gs
[2018-04-20 19:43] LABS: Urine Bacteria NONE SEEN /HPF (<20); Urine RBC <5 /HPF (NONE SEEN)
[2018-04-20 19:44] LABS: Urine Culture Reflex Order NOT NEEDED
[2018-04-20 19:51] VITALS: TEMP 97.2
[2018-04-20 19:55] VITALS: BP 141/86; O2SAT 99
[2018-04-20 22:06] LABS: Urine Blood TRACE (NEG); Urine Glucose NEGATIVE (NEG); Urine Protein NEGATIVE (NEG); Urine Specific Gravity 1.015 (1.005-1.030); Urine pH 7.5 (5.0-7.0)
== END 2018-04-20 19:45 | disposition home or self-care (01) ==
LOC: ER 16:34
DX: I50.20 Unspecified systolic (congestive) heart failure (principal); I10 Essential (primary) hypertension; Z88.0 Allergy status to penicillin; Z95.810 Presence of automatic (implantable) cardiac defibrillator
CPT/HCPCS: 36415; 71045; 80048; 80076; 83735; 83880; 84484; 85025; 85610; 93005; 96374; 99285; J1940; 81003; 81015

== ENCOUNTER 2018-07-23 17:08 | Emergency (ER) | payer OTHER ==
--- OUTSIDE RECORDS SUMMARY | 2018-07-23 17:11 | XMS REPORT ---
[...] Status Dosage System Date Date Furosemide [facility] 46712118261 40 MG Orally Active 1 tablet Once a day in am Metformin HCl ND 37070484665 500 MG Orally Active 1 tablet Twice a day with meals Lisinopril [facility] 41331775348 40 MG Orally Active 1 tablet Once a day Klor-Con 10 [facility] 75199746316 10 MEQ Orally Jun 01, Active 1 tablet Once a day 2018 Tylenol # 3 [facility] 0 300/30mg PO Once December 03Jan 02, Active 1 tablet daily in evening 2017 2017 as needed for severe pain Coreg [facility] 73039325175 12.5 MG Orally Active 1 tablet Once daily Glimepiride [facility] 82697487832 2 MG Orally Once Active 1 tablet a day Macario Aspirin [facility] 01980296077 81 MG Orally Active 1 tablet EC Low Dose Once a day Results No Known Results Summary Purpose eClinicalWorks Submission
--- OUTSIDE RECORDS SUMMARY | 2018-07-23 17:11 | XMS REPORT ---
[...] Problem Coronary artery disease involving I25.10 Active [place] coronary artery of [place] heart, angina presence unspecified Problem Chest pain, [...]
--- OUTSIDE RECORDS SUMMARY | 2018-07-23 17:11 | XMS REPORT | Clinical Summary ---
:1960 Author Organization [facility] Address [address] [place] [address] Care Team Providers Name Role Phone Unavailable Primary Care Provider Unavailable Allergies Not on File Medications Not on file Active Problems Not on file Encounters Date Type Specialty Care Team Description 11/25/2017 Outside Orders Mar Chase, HEALTHCARE RECRUITER, RPSGT 11/01/2017 Hospital Encounter Chin-Cheri, Morbid obesity (HCC); Khadijah Acosta MD Encounter for pre-operative cardiovascular clearance; Pacemaker; Chronic congestive heart failure, unspecified heart failure type (HCC); Past use of tobacco; Sleep disorder breathing 10/20/2017 Orders Only Ana Gonzalez, Morbid obesity (HCC) (Primary Dx); TESTING TECH, BLAST HOLE DRILLER Encounter for pre-operative cardiovascular clearance; Pacemaker; Chronic congestive heart failure, unspecified heart failure type (HCC); Past use of tobacco; Sleep disorder breathing after 07/22/2017 Social History Tobacco Use Types Packs/Day Years [...] - 11/07/2017 12:01 PM SCAN CDT after 07/22/2017 Results POLYSOMNOGRAPHY REPORT - SCAN (11/28/2017 1:31 PM CDT) Narrative Performed At POLYSOMNOGRAPHY REPORT - SCAN (11/07/2017 12:01 PM CDT) Narrative Performed At after 07/22/2017 Insurance Payer Benefit Plan / Group Subscriber ID Type Phone Address [employer] - UNITED MEDICARE HMO xxxxxxxxx MEDICARE MGD CARE MEDICAID MEDICAID OF [place] xxxxxxxxx Medicaid
--- OUTSIDE RECORDS SUMMARY | 2018-07-23 17:11 | XMS REPORT ---
:1960 Author Organization [facility] Address [address] [place] [address] Care Team Providers Name Role Phone JACQUI [...] ID 2017-07-11 2017-07-11 [facility] [id number] 17:58:00 17:58:00 JACQUI Results Test Description Test Time Test Comments Text Results Atomic Results Result Comments Lipid Profile 2017-07-11 22:09:00 Test Item Value Reference Range Comments Cholesterol (test code=CHOL) 107 mg/dL 0-200 Triglycerides (test code=TRIG) 76 mg/dL 9-200 HDL (test code=HDL) 36 mg/dL 50-60 Chol/HDL (test code=CHOLPHDL) 3.0 Ratio 0.0-4.4 LDL, Calculated (test 56 0-130 (NOTE)RISK OF HEART DISEASEPublished code=LDLC) by [place] Heart AssociationAnalyte Optimal Boderline Increased RiskCHOL <200 200-239 >240TRIG <150 150-199 >200HDL Male: >60 <40HDL Female: >60 <50LDL <100 130-159 >160LDL NEAR OPTIMAL IS 100-129 VLDL (test code=VLDL) 15 mg/dL 5-40 LDL/HDL (test code=LDLPHDL) 2 Comprehensive Metabolic [id number] 22:09:00 Test Item Value Reference Range Comments [...] race is not provided, and the patient isAfrican-Iraqi, multiply by 1.212. If sex is not provided, and thepatient is female, multiply by 0.742. Results for patients <18 years ofage have not been validated by the MDRD study and should be interpretedwith caution.eGFR Result Interpretation:eGFR > or=60 is in the Normal RangeeGFR < 60 may mean kidney diseaseeGFR < 15 may mean kidney failureRanges recommended by the National Kidney Foundation,http://nkdep.nih .gov [id number] 22:05:00 Test Item Value Reference Range Comments NT ProBnp (test code=PBNP) 1920 pg/mL 0-124 CBC with [id number] 18:24:00 Test Item Value Reference Range Comments [...] Lymph Abs (test code=ALYMPH) 1.4 K/cumm 0.5-4.6 [place] Abs (test code=AMONO) 0.3 K/cumm 0.0-1.2 Eos Abs (test code=AEOS) 0.09 K/cumm 0.00-0.74 Baso Abs (test code=ABASO) 0.0 K/cumm 0.00-0.21
--- OUTSIDE RECORDS SUMMARY | 2018-07-23 17:11 | XMS REPORT ---
[...] Problem Coronary artery disease involving I25.10 Active [place] coronary artery of [place] heart, angina presence unspecified Assessment Uncontrolled type [...] Assessment Coronary artery disease involving I25.10 Active [place] coronary artery of [place] heart, angina presence unspecified Problem Pain in [...] End Status Dosage System Date Date Lisinopril [facility] 83826778876 40 MG Orally Active 1 tablet Once a day Coreg [facility] 58082063100 12.5 MG Orally Active 1 tablet Once daily Furosemide ND 57703902241 40 MG Orally Active 1 tablet Once a day in am Klor-Con 10 [facility] 05953963366 10 MEQ Orally Jun 01, Active 1 tablet Once a day 2018 Metformin HCl ND 46554993840 500 MG Orally Active 1 tablet Twice a day with meals Macario Aspirin [facility] 41039560162 81 MG Orally Active 1 tablet EC Low Dose Once a day Glimepiride [facility] 23306488589 2 MG Orally Once Active 1 tablet a day Tylenol # 3 ND 0 300/30mg PO Once December 03, Jan 02, Active 1 tablet daily in evening 2017 2018 as needed for severe pain Results No Known Results Summary Purpose eClinicalWorks Submission
--- OUTSIDE RECORDS SUMMARY | 2018-07-23 17:11 | XMS REPORT ---
[...] Problem Coronary artery disease involving I25.10 Active [place] coronary artery of [place] heart, angina presence unspecified Assessment Shortness of [...]
--- OUTSIDE RECORDS SUMMARY | 2018-07-23 17:11 | XMS REPORT ---
:1960 Author [facility] Care Team Providers Name Role Phone [...] Status Dosage System Date Date Glimepiride ND 43630265967 2 MG Orally Once Active 1 tablet a day Macario Aspirin ND 95300063561 81 MG Orally Active 1 tablet EC Low Dose Once a day Lisinopril ND 75101396934 40 MG Orally Active 1 tablet Once a day Metformin HCl ND 47200297374 500 MG Orally Active 1 tablet Twice a day with meals Furosemide ND 41987467046 40 MG Orally Active 1 tablet Once a day in am Klor-Con 10 ND 43281877492 10 MEQ Orally Oct 01, Active 1 tablet Once a day 2018 Coreg [facility] 16711222392 12.5 MG Orally Active 1 tablet Once daily Results Name Result Date Reference Range Unit Abnormality Flag FLU TEST ----A Negative [id number] ----B Negative [id number] STREP A RAPID ----Result Negative [id number] Summary Purpose eClinicalWorks Submission
--- OUTSIDE RECORDS SUMMARY | 2018-07-23 17:12 | XMS REPORT ---
:1960 Author Organization eClinicalWorks Care Team Providers Name Role Phone Aleah Nicholson Provider Role Unavailable Allergies, Adverse Reactions, Alerts Substance Reaction Event Type penicillin Info Not Available Drug Allergy Problems Problem Type Condition Code Onset Dates Condition Status Problem Peripheral edema R60.9 Active Problem Heart disease I51.9 Active Problem Other chronic pain G89.29 Active Problem Pain in left knee M25.562 Active Problem Pain in right knee M25.561 Active Problem Shortness of breath R06.02 Active Problem Pain in right hand M79.641 Active Problem Varicose veins of bilateral lower I83.813 Active extremities with pain Problem Pain of left hand M79.642 Active Problem Uncontrolled type 2 diabetes E11.65 Active mellitus without complication, without long-term current use of insulin Problem Abnormal finding on mammography R92.8 Active Problem Neck pain M54.2 Active Problem Acute nonintractable headache, R51 Active unspecified headache type Problem Hypertension, unspecified type I10 Active Problem Multiple falls R29.6 Active Problem Polyarthralgia M25.50 Active Problem Acute pain of left shoulder M25.512 Active Problem AICD (automatic Z95.810 Active cardioverter/defibrillator) present Problem Varicose veins of both lower I83.93 Active extremities, unspecified whether complicated Problem Chronic congestive heart failure, I50.9 Active unspecified heart failure type Problem Chest pain, unspecified type R07.9 Active Problem Coronary artery disease involving I25.10 Active [place] coronary artery of [place] heart, angina presence unspecified Assessment Constipation, unspecified K59.00 Active constipation type Assessment Morbid obesity E66.01 Active Assessment Uncontrolled type 2 diabetes E11.65 Active mellitus without complication, without long-term current use of insulin Assessment Peripheral edema R60.9 Active Assessment AICD (automatic Z95.810 Active cardioverter/defibrillator) present Problem Cardiomyopathy, unspecified type I42.9 Active Assessment BMI 45.0-49.9, adult Z68.42 Active Problem Tremor of both hands R25.1 Active Problem BMI 45.0-49.9, adult Z68.42 Active Problem CAD (coronary artery disease) I25.10 Active Problem Constipation, unspecified K59.00 Active constipation type Problem Morbid (severe) obesity due to E66.01 Active excess calories Problem Body mass index (BMI) of 40.0-44.9 Z68.41 Active in adult Problem Morbid obesity E66.01 Active Assessment URI, acute J06.9 Active Problem Cardiomyopathy I42.9 Active Assessment Acute pharyngitis, unspecified J02.9 Active etiology Problem Congestive heart failure I50.9 Active Assessment Strep throat J02.0 Active Problem Primary osteoarthritis of right M17.11 Active knee Assessment Hypertension, unspecified type I10 Active Problem Pain, joint, knee, right M25.561 Active Assessment Coronary artery disease involving I25.10 Active [place] coronary artery of [place] heart, angina presence unspecified Problem Depression F32.9 Active Problem Edema R60.9 Active Problem Diabetes type 2, controlled E11.9 Active Problem Hypertension I10 Active Problem Peripheral vascular disease I73.9 Active Medications Medication Code Code Instructions Start End Status Dosage System Date Date Clarithromycin [facility] 48441163500 500 MG Orally Jun 01May Active 1 tablet every 12 hrs 2018 Glimepiride [facility] 14269554693 2 MG Orally Active 1 tablet Once a day Metformin HCl [facility] 81662936317 500 MG Orally Active 1 tablet with Twice a day meals Macario Aspirin EC [facility] 62900526853 81 MG Orally Active 1 tablet Low Dose Once a day Lisinopril [facility] 20304452121 40 MG Orally Active 1 tablet Once a day Klor-Con 10 [facility] 54220053678 10 MEQ Orally Aneta Active 1 tablet Once a day 2018 Furosemide [facility] 44127333830 40 MG Orally Active 1 tablet in am Once a day Coreg [facility] 33102513077 12.5 MG Orally Active 1 tablet Once daily Lactulose [facility] 51861036910 10 GM/15ML Jun 01May Active 15 -30 ml as Orally Once a 2019 , needed for day 2019 constipation Results Name Result Date Reference Range Unit Abnormality Flag Rapid Strep Summary Purpose eClinicalWorks Submission
--- OUTSIDE RECORDS SUMMARY | 2018-07-23 17:12 | XMS REPORT ---
[...] Problem Coronary artery disease involving I25.10 Active [place] coronary artery of [place] heart, angina presence unspecified Problem Acute pain of left shoulder M25.512 Active Problem Acute nonintractable headache, R51 Active unspecified headache type Medications No Known Medications Results No Known Results Summary Purpose eClinicalWorks Submission
--- OUTSIDE RECORDS SUMMARY | 2018-07-23 17:12 | XMS REPORT ---
:1960 [facility] Care Team Providers Name Role Phone Aleah [...] Problem Coronary artery disease involving I25.10 Active [place] coronary artery of [place] heart, angina presence unspecified Problem CAD (coronary [...] Status Dosage System Date Date Metformin HCl [facility] 80706731740 500 MG Orally Active 1 tablet Twice a day with meals Glimepiride [facility] 14186131438 2 MG Orally Once Active 1 tablet a day Coreg [facility] 11796014589 12.5 MG Orally Active 1 tablet Once daily Macario Aspirin [facility] 66285435878 81 MG Orally Active 1 tablet EC Low Dose Once a day Furosemide [facility] 37730262919 40 MG Orally Active 1 tablet Once a day in am Klor-Con 10 [facility] 92826531008 10 MEQ Orally Aneta Active 1 tablet Once a day 2018 Lisinopril [facility] 17224116195 40 MG Orally Active 1 tablet Once a day Results Name Result Date Reference Range Unit Abnormality Flag FLU TEST ----A Negative [id number] ----B Negative [id number] STREP A RAPID ----Result Negative [id number] Summary Purpose eClinicalWorks Submission
--- OUTSIDE RECORDS SUMMARY | 2018-07-23 17:12 | XMS REPORT ---
:1960 [facility] Care Team Providers Name Role Phone [...] Problem Coronary artery disease involving I25.[address] [place] coronary artery [place] heart, angina presence unspecified Problem Acute pain of left shoulder M25.512 Active Problem Acute nonintractable headache, R51 Active unspecified headache type Medications Medication Code Code Instructions Start End Status Dosage System Date Date Furosemide [facility] 12480156763 40 MG Orally Active 1 tablet Once a day in am Macario Aspirin EC [facility] 74179138307 81 MG Orally Active 1 tablet Low Dose Once a day Clarithromycin [facility] 39662782415 500 MG Orally Jan 30Jan Active 1 tablet every 12 hrs 2017 Klor-Con 10 [facility] 78069792553 10 MEQ Orally Jun 01, Active 1 tablet Once a day 2018 Glimepiride [facility] 38524293142 2 MG Orally Active 1 tablet Once a day Coreg [facility] 00528634064 12.5 MG Orally Active 1 tablet Once daily Metformin HCl [facility] 41098508178 500 MG Orally Active 1 tablet Twice a day with meals Lisinopril [facility] 87597178907 40 MG Orally Active 1 tablet Once a day Results Name Result Date Reference Range Unit Abnormality Flag STREP A RAPID ----Result Negative [id number] Summary Purpose eClinicalWorks Submission
--- OUTSIDE RECORDS SUMMARY | 2018-07-23 17:12 | XMS REPORT ---
[...] Problem Coronary artery disease involving I25.10 Active [place] coronary artery of [place] heart, angina presence unspecified Problem Acute pain of left shoulder M25.512 Active Problem Acute nonintractable headache, R51 Active unspecified headache type Medications Medication Code Code Instructions Start End Status Dosage System Date Date Lisinopril [facility] 12390243398 40 MG Orally Active 1 tablet Once a day Metformin HCl [facility] 96511407772 500 MG Orally Active 1 tablet Twice a day with meals Klor-Con 10 [facility] 75416070699 10 MEQ Orally Jun 01, Active 1 tablet Once a day 2018 Glimepiride [facility] 50403557394 2 MG Orally Once Active 1 tablet a day Coreg [facility] 43012288505 12.5 MG Orally Active 1 tablet Once daily Macario Aspirin [facility] 39011794334 81 MG Orally Active 1 tablet EC Low Dose Once a day Furosemide [facility] 32716514091 40 MG Orally Active 1 tablet Once a day in am Results No Known Results Summary Purpose eClinicalWorks Submission
[2018-07-23] MEDS ORDERED: FUROSEMIDE 40 MG/4 ML VIAL ONE ×2 (20:28→20:47)
[2018-07-23 20:47] LABS: Absolute Lymphocytes (CBC) 1.6 K/uL (0.7-4.9); Absolute Monocytes 0.4 K/uL (0.1-1.3); Absolute Neutrophil 3.1 K/uL (1.8-8.0); Basophils % 1.1 % (0-1.3); Eosinophils % 1.7 % (0-4.4); Lymphocytes % 31.1 % (15.3-44.8); MPV 11.5 fL (7.6-11.3); Monocytes % 7.2 % (3.3-12.3); RBC Red Blood Cell Count 4.65 M/uL (3.86-4.86)
[2018-07-23 20:54] LABS: Protime INR 1.11
[2018-07-23 21:09] LABS: ALT/SGPT 26 U/L (12-78); AST/SGOT 10 U/L (15-37); Albumin 3.7 g/dL (3.4-5.0); Alkaline Phosphatase 78 U/L (45-117); BUN Blood Urea Nitrogen 17 mg/dL (7-18); Bicarbonate 31 mmol/L (21-32); Bilirubin Direct 0.2 mg/dL (0-0.2); Bilirubin Total 0.5 mg/dL (0.2-1.0); CKMB Creatine Kinase MB 1.1 ng/mL (0.3-3.6); Creatine Phosphokinase 38 U/L (26-192); Glucose Level 99 mg/dL (74-106); Lipase 101 U/L (73-393); Magnesium 2.2 mg/dL (1.8-2.4); NT PRO-BNP 2898 pg/mL (<125); Potassium 3.6 mmol/L (3.5-5.1); Protein, Total 7.6 g/dL (6.4-8.2); Sodium Level 144 mmol/L (136-145); Troponin (Emerg Dept Use Only) < 0.02 ng/mL (0.0-0.045)
--- NOTE | 2018-07-23 22:40 | ER ---
Nurse's Notes [facility] Name: Sukh York Age: 58 yrs Sex: Female : 1960 Arrival Date: 07/23/2018 Time: 17:11 Bed 25 Private MD: Diagnosis: Edema, not elsewhere classified Presentation: 07/23 17:40 Presenting complaint: SOB and bilateral lower leg swelling x 2 day. Transition of care: hb patient was not received from another setting of care. Onset of symptoms was July 22, 2018. Risk Assessment: Do you want to hurt yourself or someone else? Patient reports no desire to harm self or others. Care prior to arrival: None. 17:40 Method Of Arrival: Ambulatory hb 17:40 Acuity: RADHA 3 hb 19:12 Initial Sepsis Screen: Does the patient meet any 2 criteria? No. Patient's initial tl3 sepsis screen is negative. Does the patient have a suspected source of infection? No. Patient's initial sepsis screen is negative. Triage Assessment: 19:13 General: Behavior is calm, cooperative, appropriate for age. Respiratory: Reports tl3 shortness of breath at rest bilateral lower leg swelling Onset: The symptoms/episode began/occurred today, the patient has moderate shortness of breath. Historical: - Allergies: 17:42 PENICILLINS; hb - Immunization history:: Adult Immunizations up to date. - Social history:: Smoking status: Patient/guardian denies using tobacco, Patient/guardian denies using alcohol, street drugs, The patient lives with family. - Ebola Screening: : No symptoms or risks identified at this time. - Family history:: not pertinent. Screenin:10 Abuse screen: Denies threats or abuse. Nutritional screening: No deficits noted. tl3 Tuberculosis screening: No symptoms or risk factors identified. Fall Risk None identified. Assessment: 19:10 General: Appears in no apparent distress. obese, well groomed, well developed, well tl3 nourished, Behavior is calm, cooperative, appropriate for age. Pain: Complains of pain in right leg and left leg. Neuro: Level of Consciousness is awake, alert, obeys commands, Oriented to person, place, time, situation, Appropriate for age. Cardiovascular: Patient's skin is warm and dry. Rhythm is regular. Respiratory: Airway is patent Respiratory effort is even, unlabored, Respiratory pattern is regular, symmetrical, Breath sounds are clear bilaterally. GI: No signs and/or symptoms were reported involving the gastrointestinal system. : No signs and/or symptoms were reported regarding the genitourinary system. EENT: No signs and/or symptoms were reported regarding the EENT system. Derm: No deficits noted. Musculoskeletal: Swelling present in bilateral lower legs. 20:30 Reassessment: Patient appears in no apparent distress at this time. No changes from tl3 previously documented assessment. Patient and/or family updated on plan of care and expected duration. Pain level reassessed. Patient is alert, oriented x 3, equal unlabored respirations, skin warm/dry/pink. IV placed, meds administered and EKG completed, no other needs at this time. 21:27 Reassessment: Patient appears in no apparent distress at this time. No changes from tl3 previously documented assessment. Patient and/or family updated on plan of care and expected duration. Pain level reassessed. Patient is alert, oriented x 3, equal unlabored respirations, skin warm/dry/pink. pt has been making a steady trail to the restroom, has went at least six times since medication administration. 22:18 Reassessment: Patient appears in no apparent distress at this time. No changes from tl3 previously documented assessment. Patient and/or family updated on plan of care and expected duration. Pain level reassessed. Patient is alert, oriented x 3, equal unlabored respirations, skin warm/dry/pink. pt continues to make frequent visits to RR. 22:59 Reassessment: Patient appears in no apparent distress at this time. Patient and/or jb4 family updated on plan of care and expected duration. Pain level reassessed. Patient is alert, oriented x 3, equal unlabored respirations, skin warm/dry/pink. Vital Signs: 17:41 BP 145 / 88; Pulse 77; Resp 20; Temp 97.8; Pulse Ox 98% on R/A; Pain 7/10; hb 19:00 BP 120 / 64 RA (auto/lg); Pulse 78; Resp 18; Pulse Ox 100% on R/A; Pain 7/10; jp3 21:27 BP 113 / 87; Pulse 76; Resp 18; Pulse Ox 97% on R/A; tl3 22:59 BP 126 / 65; Pulse 76; Resp 18; Pulse Ox 100% on R/A; jb4 19:00 patient reported pain in legs and in chest. jp3 ED Course: 17:11 Patient arrived in ED. as 17:41 Triage completed. hb 17:41 Arm band placed on right wrist. hb 19:00 Hermila Guillermo MD is Attending Physician. ma2 19:06 Haven Dumont, RN is Primary Nurse. tl3 19:08 Bed in low position. Call light in reach. Side rails up X 1. Warm blanket given. Pillow jp3 given. Pulse ox on. NIBP on. 19:10 No provider procedures requiring assistance completed. tl3 20:00 Urine collected: clean catch specimen, clear, kye colored, Amount Voided: 20mL. jp3 20:10 Initial lab(s) drawn, by me, sent to lab. First set of blood cultures drawn via 20gauge jp3 in LAC Flu and/or RSV swab sent to lab. Inserted saline lock: 20 gauge in left antecubital area, using aseptic technique. Blood collected. 20:25 Second set of blood cultures drawn via 21-gauge RAC. jp3 20:30 Inserted saline lock: 20 gauge in left antecubital area, using aseptic technique. Blood tl3 collected. 20:32 EKG done, Flu and/or RSV swab sent to lab. tl3 20:33 Influenza Screen (a \T\ B) Sent. jp3 20:33 Blood Culture Adult (2) Sent. jp3 20:33 BMP Sent. jp3 20:34 CBC with Diff Sent. jp3 20:34 Ckmb Sent. jp3 20:34 CPK Sent. jp3 20:34 Hepatic Function Sent. jp3 20:34 Lipase Sent. jp3 20:34 Magnesium Sent. jp3 20:34 NT PRO-BNP Sent. jp3 20:34 PT-INR Sent. jp3 20:34 Ptt, Activated Sent. jp3 20:34 Troponin (emerg Dept Use Only) Sent. jp3 22:59 IV discontinued, intact, bleeding controlled. jb4 Administered Medications: 20:25 Drug: Lasix 40 mg Route: IVP; Infused Over: 2 mins; Site: left antecubital; tl3 21:31 Follow up: Response: No adverse reaction tl3 20:34 Drug: Lasix 40 mg Route: IVP; Infused Over: 2 mins; Site: left antecubital; tl3 21:31 Follow up: Response: No adverse reaction tl3 Outcome: 22:40 Discharge ordered by . theresa 22:59 Discharged to home ambulatory. jb4 22:59 Condition: stable 22:59 Discharge instructions given to patient, Instructed on discharge instructions, follow up and referral plans. Demonstrated understanding of instructions, follow-up care. 23:02 Patient left the ED. jb4 Signatures: Anu Lutz Heather, RN RN Facundo Butler RN RN jb4 Hermila Guillermo MD MD ma2 Haven Dumont RN RN tl3 Migel Rivas 3
--- NOTE | 2018-07-23 22:41 | EDPHYS ---
Physician Documentation [facility] Name: Sukh York Age: 58 yrs Sex: Female : 1960 Arrival Date: 07/23/2018 Time: 17:11 Bed 25 Private MD: ED Physician Hermila Guillermo HPI: 07/23 21:26 This 58 yrs old Female presents to ER via Ambulatory with complaints of ma2 Shortness Of Breath. 21:26 The patient has shortness of breath during heavy activity. Onset: The symptoms/episode ma2 began/occurred gradually, 2 day(s) ago. Duration: The symptoms are chronic. Associated signs and symptoms: Pertinent negatives: non-productive cough, diaphoresis, loss of consciousness. Severity of symptoms: At their worst the symptoms were mild in the emergency department the symptoms are unchanged. The patient has experienced similar episodes in the past. Historical: - Allergies: 17:42 PENICILLINS; hb - Immunization history:: Adult Immunizations up to date. - Social history:: Smoking status: Patient/guardian denies using tobacco, Patient/guardian denies using alcohol, street drugs, The patient lives with family. - Ebola Screening: : No symptoms or risks identified at this time. - Family history:: not pertinent. ROS: 21:26 Constitutional: Negative for fever, chills, and weight loss. ma2 21:26 Respiratory: Positive for dyspnea on exertion, Negative for pleurisy, shortness of breath, wheezing, acute changes. 21:26 MS/extremity: Positive for swelling, Negative for abrasion, decreased range of motion, ecchymosis, laceration. 21:26 All other systems are negative. Exam: 21:26 Constitutional: This is a well developed, well nourished patient who is awake, alert, ma2 and in no acute distress. Chest/axilla: Normal chest wall appearance and motion. Nontender with no deformity. No lesions are appreciated. Cardiovascular: Regular rate and rhythm with a normal S1 and S2. No gallops, murmurs, or rubs. Normal PMI, no JVD. No pulse deficits. Respiratory: Lungs have equal breath sounds bilaterally, clear to auscultation and percussion. No rales, rhonchi or wheezes noted. No increased work of breathing, no retractions or nasal flaring. Abdomen/GI: Soft, non-tender, with normal bowel sounds. No distension or tympany. No guarding or rebound. No evidence of tenderness throughout. Neuro: Awake and alert, GCS 15, oriented to person, place, time, and situation. Cranial nerves II-XII grossly intact. Motor strength 5/5 in all extremities. Sensory grossly intact. Cerebellar exam normal. Normal gait. 21:26 Musculoskeletal/extremity: Circulation is intact in all extremities. Sensation intact. bilat le edema 2+ pitting equal bilat. Vital Signs: 17:41 BP 145 / 88; Pulse 77; Resp 20; Temp 97.8; Pulse Ox 98% on R/A; Pain 7/10; hb 19:00 BP 120 / 64 RA (auto/lg); Pulse 78; Resp 18; Pulse Ox 100% on R/A; Pain 7/10; jp3 21:27 BP 113 / 87; Pulse 76; Resp 18; Pulse Ox 97% on R/A; tl3 22:59 BP 126 / 65; Pulse 76; Resp 18; Pulse Ox 100% on R/A; jb4 19:00 patient reported pain in legs and in chest. jp3 MDM: 19:00 Patient medically screened. ma2 21:26 Differential diagnosis: Anemia Anxiety Reaction CHF exacerbation, has mild chf. mi2 22:39 Data reviewed: vital signs, nurses notes. Counseling: I had a detailed discussion with ma2 the patient and/or guardian regarding: the historical points, exam findings, and any diagnostic results supporting the discharge/admit diagnosis, the presence of at least one elevated blood pressure reading (>120/80) during this emergency department visit, the need for outpatient follow up. Response to treatment: the patient's symptoms have resolved after treatment. 07/23 20:51 Order name: CBC with Automated Diff; Complete Time: 22:00 EDMS 07/23 19:40 Order name: EKG; Complete Time: 19:41 [facility] 07/23 19:40 Order name: Cardiac monitoring; Complete Time: 20:33 [facility] 07/23 20:56 Order name: Protime (+INR); Complete Time: 22:00 EDMS 07/23 20:56 Order name: PTT, Activated Partial Thromb; Complete Time: 22:00 EDMS 07/23 21:01 Order name: Influenza Screen (A ; Complete Time: 22:00 EDMS 07/23 21:10 Order name: Basic Metabolic Panel; Complete Time: 22:00 EDMS 07/23 21:10 Order name: Liver (Hepatic) Function; Complete Time: 22:00 EDMS 07/23 21:10 Order name: Creatine Phosphokinase; Complete Time: 22:00 EDMS 07/23 21:10 Order name: CKMB Creatine Kinase MB; Complete Time: 22:00 EDMS 07/23 21:10 Order name: Troponin (Emerg Dept Use Only); Complete Time: 22:00 EDMS 07/23 21:10 Order name: NT PRO-BNP; Complete Time: 22:00 EDMS 07/23 21:10 Order name: Magnesium; Complete Time: 22:00 EDMS 07/23 21:10 Order name: Lipase; Complete Time: 22:00 EDMS 07/23 19:40 Order name: EKG - Nurse/Tech; Complete Time: 20:33 ma2 07/23 19:40 Order name: IV Saline Lock; Complete Time: 20:33 ma2 07/23 19:40 Order name: Labs collected and sent; Complete Time: 20:33 ma2 07/23 19:40 Order name: O2 Per Protocol; Complete Time: 20:33 ma2 07/23 19:40 Order name: O2 Sat Monitoring; Complete Time: 20:33 ma2 Administered Medications: 20:25 Drug: Lasix 40 mg Route: IVP; Infused Over: 2 mins; Site: left antecubital; tl3 21:31 Follow up: Response: No adverse reaction tl3 20:34 Drug: Lasix 40 mg Route: IVP; Infused Over: 2 mins; Site: left antecubital; tl3 21:31 Follow up: Response: No adverse reaction tl3 Disposition: 07/23/18 22:40 Discharged to Home. Impression: Edema, not elsewhere classified. - Condition is Stable. - Discharge Instructions: Heart Failure, [id number]. - Medication Reconciliation Form, Thank You Letter, Antibiotic Education, Prescription Opioid Use form. - Follow up: Private Physician; When: Tomorrow; Reason: Continuance of care. Signatures: [facility] Juliana Christopher RN RN hb Bryson, James, RN RN [email or web address] Hermila Guillermo MD MD mi2 Julia, Haven, RN RN tl3 Corrections: (The following items were deleted from the chart) 23:02 22:40 07/23/2018 22:40 Discharged to Home. Impression: Edema, not elsewhere classified. jb4 Condition is Stable. Forms are Medication Reconciliation Form, Thank You Letter, Antibiotic Education, Prescription Opioid Use. Follow up: Private Physician; When: Tomorrow; Reason: Continuance of care. ma2
[2018-07-23 23:11] VITALS: TEMP 97.8
[2018-07-23 23:13] VITALS: BP 126/65; O2SAT 100
--- NOTE | 2018-07-24 13:42 | EKG ---
Test Date: 2018-07-23 Test Time: 20:22:12 Dump Operator: TL MEASUREMENT RESULTS: Intervals: Rate: 79 IN: 166 QRSD: 126 QT: 422 QTc: 483 [place]: P: 71 IN: 166 QRS: -30 T: 97 INTERPRETIVE STATEMENTS: Sinus rhythm with occasional premature ventricular complexes Left axis deviation Left ventricular hypertrophy with QRS widening and repolarization abnormality Abnormal ECG Compared to ECG 04/20/2018 16:57:34 Left-axis deviation now present Atrial-paced complex(es) or rhythm no longer present Ventricular-paced complex(es) or rhythm no longer present Electronically Signed On 07-24-18 13:41:47 MUNITIONS FACTORY WORKER by Papa Tellez
== END 2018-07-23 23:02 | disposition home or self-care (01) ==
LOC: ER 17:08
DX: R60.9 Edema, unspecified (principal); Z88.0 Allergy status to penicillin
CPT/HCPCS: 93005; 87040 ×2; 85025; 80048; 36415; 83735; 82550; 85610; 80076; 85730; 84484; 82553; 83690; 83880; 87804 ×2; 71045; 96374; 99284; J1940 ×2

== ENCOUNTER 2018-08-04 09:40 | Emergency (ER) | payer OTHER ==
--- OUTSIDE RECORDS SUMMARY | 2018-08-04 09:49 | XMS REPORT | Clinical Summary ---
:1960 Author Organization [facility] Address [address] [place] [address] Care Team Providers Name Role Phone Unavailable Primary Care Provider Unavailable Allergies Not on File Medications Not on file Active Problems Not on file Encounters Date Type Specialty Care Team Description 11/25/2017 Outside Orders Mar Chase, STONE GRADER, RPSGT 11/01/2017 Hospital Encounter Chin-Cheri, Morbid obesity (HCC); Khadijah Acosta MD Encounter for pre-operative cardiovascular clearance; Pacemaker; Chronic congestive heart failure, unspecified heart failure type (HCC); Past use of tobacco; Sleep disorder breathing 10/20/2017 Orders Only Ana Gonzalez, Morbid obesity (HCC) (Primary Dx); ELECTRONICS UTILITY WORKER, RN NAVIGATOR Encounter for pre-operative cardiovascular clearance; Pacemaker; Chronic congestive heart failure, unspecified heart failure type (HCC); Past use of tobacco; Sleep disorder breathing after 08/03/2017 Social History Tobacco Use Types Packs/Day Years [...] - 11/07/2017 12:01 PM SCAN CDT after 08/03/2017 Results POLYSOMNOGRAPHY REPORT - SCAN (11/28/2017 1:31 PM CDT) Narrative Performed At POLYSOMNOGRAPHY REPORT - SCAN (11/07/2017 12:01 PM CDT) Narrative Performed At after 08/03/2017 Insurance Payer Benefit Plan / Group Subscriber ID Type Phone Address [employer] - UNITED MEDICARE HMO xxxxxxxxx MEDICARE [place] CARE MEDICAID MEDICAID [place] xxxxxxxxx Medicaid
--- OUTSIDE RECORDS SUMMARY | 2018-08-04 09:50 | XMS REPORT ---
:1960 [facility] Team Providers Name Role [...] Status Dosage System Date Date Glimepiride ND 31763329949 2 MG Orally Once Active 1 tablet a day Macario Aspirin ND 10857116897 81 MG Orally Active 1 tablet EC Low Dose Once a day Lisinopril ND 83328215478 40 MG Orally Active 1 tablet Once a day Metformin HCl ND 16701946829 500 MG Orally Active 1 tablet Twice a day with meals Furosemide ND 70974710155 40 MG Orally Active 1 tablet Once a day in am Klor-Con 10 ND 66826274673 10 MEQ Orally Oct 01, Active 1 tablet Once a day [address] [facility] 82548824283 12.5 MG Orally Active 1 tablet Once daily Results Name Result Date Reference Range Unit Abnormality Flag FLU TEST ----A Negative [id number] ----B Negative [id number] STREP A RAPID ----Result Negative [id number] Summary Purpose eClinicalWorks Submission
--- OUTSIDE RECORDS SUMMARY | 2018-08-04 09:50 | XMS REPORT ---
[...] Problem Coronary artery disease involving I25.10 Active [place] coronary artery of [place] heart, angina presence unspecified Assessment Uncontrolled type [...] Assessment Coronary artery disease involving I25.10 Active [place] coronary artery of [place] heart, angina presence unspecified Problem Pain in [...] End Status Dosage System Date Date Lisinopril [facility] 05592923444 40 MG Orally Active 1 tablet Once a day Coreg [facility] 93741149267 12.5 MG Orally Active 1 tablet Once daily Furosemide ND 18630183131 40 MG Orally Active 1 tablet Once a day in am Klor-Con 10 [facility] 64051513657 10 MEQ Orally Jun 01, Active 1 tablet Once a day 2018 Metformin HCl ND 19265409095 500 MG Orally Active 1 tablet Twice a day with meals Macario Aspirin [facility] 77613192733 81 MG Orally Active 1 tablet EC Low Dose Once a day Glimepiride [facility] 51342798968 2 MG Orally Once Active 1 tablet a day Tylenol # 3 ND 0 300/30mg PO Once December 03, Jan 02, Active 1 tablet daily in evening 2017 2018 as needed for severe pain Results No Known Results Summary Purpose eClinicalWorks Submission
--- OUTSIDE RECORDS SUMMARY | 2018-08-04 09:50 | XMS REPORT ---
[...] Problem Coronary artery disease involving I25.10 Active [place] coronary artery of [place] heart, angina presence unspecified Problem Acute pain of left shoulder M25.512 Active Problem Acute nonintractable headache, R51 Active unspecified headache type Medications Medication Code Code Instructions Start End Status Dosage System Date Date Lisinopril [facility] 69754763013 40 MG Orally Active 1 tablet Once a day Metformin HCl [facility] 15637626112 500 MG Orally Active 1 tablet Twice a day with meals Klor-Con 10 [facility] 95504476745 10 MEQ Orally Jun 01, Active 1 tablet Once a day 2018 Glimepiride [facility] 12506488374 2 MG Orally Once Active 1 tablet a day Coreg [facility] 95720911679 12.5 MG Orally Active 1 tablet Once daily Macario Aspirin [facility] 95072237467 81 MG Orally Active 1 tablet EC Low Dose Once a day Furosemide [facility] 57959557466 40 MG Orally Active 1 tablet Once a day in am Results No Known Results Summary Purpose eClinicalWorks Submission
--- OUTSIDE RECORDS SUMMARY | 2018-08-04 09:50 | XMS REPORT ---
[...] Problem Coronary artery disease involving I25.10 Active [place] coronary artery of [place] heart, angina presence unspecified Assessment Shortness of [...]
--- OUTSIDE RECORDS SUMMARY | 2018-08-04 09:50 | XMS REPORT ---
[...] End Status Dosage System Date Date Furosemide [facility] 53079244396 40 MG Orally Active 1 tablet Once a day in am Metformin HCl ND 89492820479 500 MG Orally Active 1 tablet Twice a day with meals Lisinopril [facility] 79891230610 40 MG Orally Active 1 tablet Once a day Klor-Con 10 [facility] 78271476199 10 MEQ Orally Jun 01, Active 1 tablet Once a day 2018 Tylenol # 3 [facility] 0 300/30mg PO Once December 03Jan 02, Active 1 tablet daily in evening 2017 2017 as needed for severe pain Coreg [facility] 32377685313 12.5 MG Orally Active 1 tablet Once daily Glimepiride [facility] 32142709322 2 MG Orally Once Active 1 tablet a day Macario Aspirin [facility] 72657555893 81 MG Orally Active 1 tablet EC Low Dose Once a day Results No Known Results Summary Purpose eClinicalWorks Submission
--- OUTSIDE RECORDS SUMMARY | 2018-08-04 09:50 | XMS REPORT ---
[...] Problem Coronary artery disease involving I25.10 Active [place] coronary artery of [place] heart, angina presence unspecified Problem Chest pain, [...]
--- OUTSIDE RECORDS SUMMARY | 2018-08-04 09:50 | XMS REPORT ---
:1960 Author [facility] Address [address] [place] [address] Care Team Providers Name Role Phone JACQUI [...] Facility Department ID 2017-07-11 2017-07-11 Outpatient [facility] [id number] 17:58:00 17:58:00 JACQUI Results Test Description Test Time Test Comments Text Results Atomic Results Result Comments Lipid Profile 2017-07-11 22:09:00 Test Item Value Reference Range Comments Cholesterol (test code=CHOL) 107 mg/dL 0-200 Triglycerides (test code=TRIG) 76 mg/dL 9-200 HDL (test code=HDL) 36 mg/dL 50-60 Chol/HDL (test code=CHOLPHDL) 3.0 Ratio 0.0-4.4 LDL, Calculated (test 56 0-130 (NOTE)RISK OF HEART DISEASEPublished code=LDLC) by [place] Heart AssociationAnalyte Optimal [place] Increased RiskCHOL <200 200-239 >240TRIG <150 150-199 >200HDL Male: >60 <40HDL Female: >60 <50LDL <100 130-159 >160LDL NEAR OPTIMAL IS 100-129 VLDL (test code=VLDL) 15 mg/dL 5-40 LDL/HDL (test code=LDLPHDL) 2 Comprehensive Metabolic [id number] 22:09:00 Test Item Value Reference Range Comments [...] race is not provided, and the patient isAfrican-Faroese, multiply by 1.212. If sex is not provided, and thepatient is female, multiply by 0.742. Results for patients <18 years ofage have not been validated by the MDRD study and should be interpretedwith caution.eGFR Result Interpretation:eGFR > or=60 is in the Normal RangeeGFR < 60 may mean kidney diseaseeGFR < 15 may mean kidney failureRanges recommended by the National Kidney Foundation,http://nkdep.nih .gov [id number] 22:05:00 Test Item Value Reference Range Comments NT ProBnp (test code=PBNP) 1920 pg/mL 0-124 CBC with [id number] 18:24:00 Test Item Value Reference Range Comments [...] Lymph Abs (test code=ALYMPH) 1.4 K/cumm 0.5-4.6 Bacon Abs (test code=AMONO) 0.3 K/cumm 0.0-1.2 Eos Abs (test code=AEOS) 0.09 K/cumm 0.00-0.74 Baso Abs (test code=ABASO) 0.0 K/cumm 0.00-0.21
--- OUTSIDE RECORDS SUMMARY | 2018-08-04 09:51 | XMS REPORT ---
[...] Problem Coronary artery disease involving I25.10 Active [place] coronary artery of [place] heart, angina presence unspecified Assessment Constipation, unspecified [...] Assessment Coronary artery disease involving I25.10 Active [place] coronary artery of [place] heart, angina presence unspecified Problem Depression F32.9 Active Problem Edema R60.9 Active Problem Diabetes type 2, controlled E11.9 Active Problem Hypertension I10 Active Problem Peripheral vascular disease I73.9 Active Medications Medication Code Code Instructions Start End Status Dosage System Date Date Clarithromycin [facility] 00649976884 500 MG Orally Jun 01May Active 1 tablet every 12 hrs 2018 Glimepiride [facility] 05666104981 2 MG Orally Active 1 tablet Once a day Metformin HCl [facility] 48635161433 500 MG Orally Active 1 tablet with Twice a day meals Macario Aspirin EC [facility] 40763229869 81 MG Orally Active 1 tablet Low Dose Once a day Lisinopril [facility] 78552314884 40 MG Orally Active 1 tablet Once a day Klor-Con 10 [facility] 61103127483 10 MEQ Orally Aneta Active 1 tablet Once a day 2018 Furosemide [facility] 30081894893 40 MG Orally Active 1 tablet in am Once a day Coreg [facility] 00463038007 12.5 MG Orally Active 1 tablet Once daily Lactulose [facility] 24567991537 10 GM/15ML Jun 01May Active 15 -30 ml as Orally Once a 2019 , needed for day 2019 constipation Results Name Result Date Reference Range Unit Abnormality Flag Rapid Strep Summary Purpose eClinicalWorks Submission
--- OUTSIDE RECORDS SUMMARY | 2018-08-04 09:51 | XMS REPORT ---
[...] Problem Coronary artery disease involving I25.10 Active [place] coronary artery of [place] heart, angina presence unspecified Problem Acute pain of left shoulder M25.512 Active Problem Acute nonintractable headache, R51 Active unspecified headache type Medications No Known Medications Results No Known Results Summary Purpose eClinicalWorks Submission
--- OUTSIDE RECORDS SUMMARY | 2018-08-04 09:51 | XMS REPORT ---
:1960 [facility] Providers Name Role Phone [...] Problem Coronary artery disease involving I25.10 Active [place] coronary artery of [place] heart, angina presence unspecified Problem Acute pain of left shoulder M25.512 Active Problem Acute nonintractable headache, R51 Active unspecified headache type Medications Medication Code Code Instructions Start End Status Dosage System Date Date Furosemide [facility] 12261418246 40 MG Orally Active 1 tablet Once a day in am Macario Aspirin EC [facility] 65174147498 81 MG Orally Active 1 tablet Low Dose Once a day Clarithromycin [facility] 32573994687 500 MG Orally Jan 30Jan Active 1 tablet every 12 hrs 2017 Klor-Con 10 [facility] 08023449889 10 MEQ Orally Jun 01, Active 1 tablet Once a day 2018 Glimepiride [facility] 19458848838 2 MG Orally Active 1 tablet Once a day Coreg [facility] 38659166118 12.5 MG Orally Active 1 tablet Once daily Metformin HCl [facility] 86577674249 500 MG Orally Active 1 tablet Twice a day with meals Lisinopril [facility] 82175636987 40 MG Orally Active 1 tablet Once a day Results Name Result Date Reference Range Unit Abnormality Flag STREP A RAPID ----Result Negative [id number] Summary Purpose eClinicalWorks Submission
--- OUTSIDE RECORDS SUMMARY | 2018-08-04 09:51 | XMS REPORT ---
:1960 [facility] Providers Name Role Phone [...] Problem Coronary artery disease involving I25.10 Active [place] coronary artery of [place] heart, angina presence unspecified Problem CAD (coronary [...] Status Dosage System Date Date Metformin HCl [facility] 49817797233 500 MG Orally Active 1 tablet Twice a day with meals Glimepiride [facility] 66760289942 2 MG Orally Once Active 1 tablet a day Coreg [facility] 62441581751 12.5 MG Orally Active 1 tablet Once daily Macario Aspirin [facility] 52075876771 81 MG Orally Active 1 tablet EC Low Dose Once a day Furosemide [facility] 70448149349 40 MG Orally Active 1 tablet Once a day in am Klor-Con 10 [facility] 76839333659 10 MEQ Orally Aneta Active 1 tablet Once a day 2018 Lisinopril [facility] 94485547883 40 MG Orally Active 1 tablet Once a day Results Name Result Date Reference Range Unit Abnormality Flag FLU TEST ----A Negative [id number] ----B Negative [id number] STREP A RAPID ----Result Negative [id number] Summary Purpose eClinicalWorks Submission
--- OUTSIDE RECORDS SUMMARY | 2018-08-04 09:51 | XMS REPORT ---
:1960 [facility] Providers Name Role Phone [...] without long-term current use of insulin Problem Cardiomyopathy, unspecified type I42.9 Active Problem Tremor of both hands R25.1 Active Problem Abnormal finding on mammography R92.8 Active Problem BMI 45.0-49.9, adult Z68.42 Active Problem CAD (coronary artery disease) I25.10 Active Problem Constipation, unspecified K59.00 Active constipation type Problem Morbid (severe) obesity due to E66.01 Active excess calories Problem Body mass index (BMI) of 40.0-44.9 Z68.41 Active in adult Problem Neck pain M54.2 Active Problem Acute nonintractable headache, R51 Active unspecified headache type Problem Morbid obesity E66.01 Active Problem Hypertension, unspecified type I10 Active Problem Cardiomyopathy I42.9 Active Problem Congestive heart failure I50.9 Active Problem Primary osteoarthritis of right M17.11 Active knee Problem Pain, joint, knee, right M25.561 Active Problem Depression F32.9 Active Problem Multiple falls R29.6 Active Problem Edema R60.9 Active Problem Polyarthralgia M25.50 Active Problem Diabetes type 2, controlled E11.9 Active Problem Acute pain of left shoulder M25.512 Active Problem Hypertension I10 Active Problem AICD (automatic Z95.810 Active cardioverter/defibrillator) present Problem Varicose veins of both lower I83.93 Active extremities, unspecified whether complicated Problem Peripheral vascular disease I73.9 Active Problem Chronic congestive heart failure, I50.9 Active unspecified heart failure type Problem Chest pain, unspecified type R07.9 Active Problem Coronary artery disease involving I25.10 Active [place] coronary artery of [place] heart, angina presence unspecified Medications No Known Medications Results No Known Results Summary Purpose eClinicalWorks Submission
--- NOTE | 2018-08-04 10:46 | ER ---
Nurse's Notes [facility] Name: Sukh York Age: 58 yrs Sex: Female : 1960 Arrival Date: 08/04/2018 Time: 09:46 Bed 23 Private MD: Aleah Nicholson Diagnosis: Fall due to bumping against object;Contusion of left lower leg-hematoma Presentation: 08/04 09:47 Presenting complaint: Patient states: LLE pain/swelling/bruising x 1 week after sv tripping on a speed bump at night. Pt ambulated to triage. Care prior to arrival: None. 09:47 Method Of Arrival: Ambulatory sv 09:47 Acuity: RADHA 3 sv 09:56 Initial Sepsis Screen: Does the patient meet any 2 criteria? No. Patient's initial ls4 sepsis screen is negative. Does the patient have a suspected source of infection? No. Patient's initial sepsis screen is negative. 09:56 Transition of care: patient was not received from another setting of care. Onset of ls4 symptoms was July 28, 2018. Risk Assessment: Do you want to hurt yourself or someone else? Patient reports no desire to harm self or others. Triage Assessment: 09:50 General: Appears in no apparent distress. uncomfortable, obese, well developed, sv Behavior is calm, cooperative, appropriate for age. Pain: Complains of pain in left leg Pain currently is 8 out of 10 on a pain scale. Neuro: Level of Consciousness is awake, alert, obeys commands, Oriented to person, place, time, situation, Moves all extremities. Full function Gait is steady. Respiratory: Respiratory effort is even, unlabored, Respiratory pattern is regular, symmetrical. Derm: Skin is pink, warm \T\ dry. Bruising that is dark purple, on left calf, left Achilles, left brush and anterior aspect of left ankle. Musculoskeletal: Range of motion: intact in all extremities, Swelling present in left leg. Historical: - Allergies: 09:49 PENICILLINS; sv - PMHx: 09:49 CHF; Diabetes - NIDDM; Hypertension; sv - PSHx: 09:49 pacemaker with defibrillator; sv - Immunization history:: Adult Immunizations up to date, Flu vaccine is not up to date. - Social history:: Smoking status: Patient/guardian denies using tobacco. - Ebola Screening: : No symptoms or risks identified at this time. - Family history:: not pertinent. Screenin:55 Abuse screen: Denies threats or abuse. Denies injuries from another. Nutritional ls4 screening: No deficits noted. Tuberculosis screening: No symptoms or risk factors identified. Fall Risk None identified. Assessment: 09:55 General: Appears in no apparent distress. Musculoskeletal: Circulation, motion, and ls4 sensation intact. Capillary refill < 3 seconds, Range of motion: intact in all extremities. 10:36 Reassessment: Patient appears in no apparent distress at this time. Patient and/or ls4 family updated on plan of care and expected duration. Pain level reassessed. Patient is alert, oriented x 3, equal unlabored respirations, skin warm/dry/pink. Vital Signs: 09:49 BP 98 / 46; Pulse 48; Resp 20; Temp 96.7(TE); Pulse Ox 99% ; Weight 108.86 kg; Height 5 sv ft. 1 in. (154.94 cm); Pain 8/10; 11:00 Pulse 54; Resp 16; Pulse Ox 99% on R/A; Pain 8/10; ls4 09:49 Body Mass Index 45.35 (108.86 kg, 154.94 cm) sv ED Course: 09:46 Patient arrived in ED. mr 09:46 Aleah Nicholson MD is Private Physician. mr 09:48 Triage completed. sv 09:50 Arm band placed on. sv 09:54 Gilda Martínez, DAY is Primary Nurse. ls4 09:55 Gus San MD is Attending Physician. guerita 09:55 Patient has correct armband on for positive identification. Bed in low position. Call ls4 light in reach. Side rails up X 1. 09:55 No provider procedures requiring assistance completed. ls4 10:24 US Extremity Venous Unilateral Ltd In Process Unspecified. EDMS 10:27 Radiology exam delayed due to ultrasound. jr1 10:45 Aleah Nicholson MD is Referral Physician. guerita 10:59 Tib Fib Left XRAY In Process Unspecified. EDMS 11:20 Patient did not have IV access during this emergency room visit. ls4 Administered Medications: No medications were administered Outcome: 10:45 Discharge ordered by . guerita 11:20 Condition: good ls4 11:20 Discharged to home ambulatory. ls4 11:20 Discharge instructions given to patient, Instructed on discharge instructions, follow up and referral plans. medication usage, Demonstrated understanding of instructions, follow-up care, medications, Prescriptions given X 1. 11:25 Patient left the ED. ls4 Signatures: Dispatcher [employer] Sarah Jimenez RN RN Gus Nye MD MD cha Rivera, Yakelin David, Rika jr1 Gilda Martínez RN RN ls4 Corrections: (The following items were deleted from the chart) 09:52 09:49 Pulse 65bpm; Resp 20bpm; Pulse Ox 99%; Temp 96.7F Temporal; 108.86 kg; Height 5 sv ft. 1 in.; BMI: 45.3; Pain 8/10; sv 09:56 09:47 Acuity: RADHA 4 sv sv
--- NOTE | 2018-08-04 10:46 | EDPHYS ---
Physician Documentation [facility] Name: Sukh York Age: 58 yrs Sex: Female : 1960 Arrival Date: 08/04/2018 Time: 09:46 Bed 23 Private MD: Aleah Nicholson ED Physician Gus San HPI: 08/04 09:58 This 58 yrs old Female presents to ER via Ambulatory with complaints of Fall guerita Injury, Foot Pain. 09:58 Details of fall: The patient fell from an upright position, while walking. Onset: The guerita symptoms/episode began/occurred 3 day(s) ago. Associated injuries: The patient sustained left brush, hematoma, painful injury. Severity of symptoms: At their worst the symptoms were mild, in the emergency department the symptoms are unchanged. The patient has not experienced similar symptoms in the past. Historical: - Allergies: 09:49 PENICILLINS; sv - PMHx: 09:49 CHF; Diabetes - NIDDM; Hypertension; sv - PSHx: 09:49 pacemaker with defibrillator; sv - Immunization history:: Adult Immunizations up to date, Flu vaccine is not up to date. - Social history:: Smoking status: Patient/guardian denies using tobacco. - Ebola Screening: : No symptoms or risks identified at this time. - Family history:: not pertinent. ROS: 09:58 Constitutional: Negative for fever, chills, and weight loss, Eyes: Negative for injury, guerita pain, redness, and discharge, ENT: Negative for injury, pain, and discharge, Neck: Negative for injury, pain, and swelling, Cardiovascular: Negative for chest pain, palpitations, and edema, Respiratory: Negative for shortness of breath, cough, wheezing, and pleuritic chest pain, Abdomen/GI: Negative for abdominal pain, nausea, vomiting, diarrhea, and constipation, Back: Negative for injury and pain, : Negative for injury, bleeding, discharge, and swelling, Skin: Negative for injury, rash, and discoloration, Neuro: Negative for headache, weakness, numbness, tingling, and seizure, Psych: Negative for depression, anxiety, suicide ideation, homicidal ideation, and hallucinations, Allergy/Immunology: Negative for hives, rash, and allergies, Endocrine: Negative for neck swelling, polydipsia, polyuria, polyphagia, and marked weight changes. 09:58 MS/extremity: Positive for decreased range of motion, pain, swelling, of the left brush. Exam: 09:58 Constitutional: This is a well developed, well nourished patient who is awake, alert, guerita and in no acute distress. Head/Face: Normocephalic, atraumatic. Eyes: Pupils equal round and reactive to light, extra-ocular motions intact. Lids and lashes normal. Conjunctiva and sclera are non-icteric and not injected. Cornea within normal limits. Periorbital areas with no swelling, redness, or edema. ENT: Nares patent. No nasal discharge, no septal abnormalities noted. Tympanic membranes are normal and external auditory canals are clear. Oropharynx with no redness, swelling, or masses, exudates, or evidence of obstruction, uvula midline. Mucous membranes moist. Neck: Trachea midline, no thyromegaly or masses palpated, and no cervical lymphadenopathy. Supple, full range of motion without nuchal rigidity, or vertebral point tenderness. No Meningismus. Chest/axilla: Normal chest wall appearance and motion. Nontender with no deformity. No lesions are appreciated. Cardiovascular: Regular rate and rhythm with a normal S1 and S2. No gallops, murmurs, or rubs. Normal PMI, no JVD. No pulse deficits. Respiratory: Lungs have equal breath sounds bilaterally, clear to auscultation and percussion. No rales, rhonchi or wheezes noted. No increased work of breathing, no retractions or nasal flaring. Abdomen/GI: Soft, non-tender, with normal bowel sounds. No distension or tympany. No guarding or rebound. No evidence of tenderness throughout. Back: No spinal tenderness. No costovertebral tenderness. Full range of motion. Female : Normal external genitalia. Skin: Warm, dry with normal turgor. Normal color with no rashes, no lesions, and no evidence of cellulitis. Neuro: Awake and alert, GCS 15, oriented to person, place, time, and situation. Cranial nerves II-XII grossly intact. Motor strength 5/5 in all extremities. Sensory grossly intact. Cerebellar exam normal. Normal gait. Psych: Awake, alert, with orientation to person, place and time. Behavior, mood, and affect are within normal limits. 09:58 Musculoskeletal/extremity: Extremities: decreased ROM, ecchymosis, pain, swelling, ROM: full active range of motion, full passive range of motion, Circulation is intact in all extremities. Sensation intact. Compartment Syndrome exam of affected extremity: is normal. DVT Exam: negative Homans' sign noted on exam, no erythema, no increased warmth, pain, swelling, tenderness, bluish discoloration. Vital Signs: 09:49 BP 98 / 46; Pulse 48; Resp 20; Temp 96.7(TE); Pulse Ox 99% ; Weight 108.86 kg; Height 5 sv ft. 1 in. (154.94 cm); Pain 8/10; 11:00 Pulse 54; Resp 16; Pulse Ox 99% on R/A; Pain 8/10; ls4 09:49 Body Mass Index 45.35 (108.86 kg, 154.94 cm) sv MDM: 09:55 Patient medically screened. [facility] 09:58 Data reviewed: vital signs, nurses notes, radiologic studies, doppler, plain films. [facility] 08/04 09:58 Order name: Tib Fib Left XRAY [facility] 08/04 09:58 Order name: US Extremity Venous Unilateral Ltd [facility] Administered Medications: No medications were administered Disposition: 08/04/18 10:45 Discharged to Home. Impression: Fall due to bumping against object, Contusion of left lower leg - hematoma. - Condition is Stable. - Discharge Instructions: Contusion, Hematoma, Hematoma, Jkaa-fo-Nmqi, Contusion, Lequ-dk-Dbhp, Fall Prevention in the Home, Dezp-bv-Tqsk. - Prescriptions for Tylenol- Codeine #3 300-30 mg Oral Tablet - take 2 tablet by ORAL route every 6 hours As needed; 30 tablet. - Medication Reconciliation Form, Thank You Letter, Antibiotic Education, Prescription Opioid Use form. - Follow up: Aleah Nicholson; When: 2 - 3 days; Reason: Recheck today's complaints, Continuance of care, Re-evaluation by your physician. - Problem is new. - Symptoms have improved. Signatures: Dispatcher [employer] Sarah Jimenez, RN RN Gus Nye MD MD cha Stewart, Lisa, RN RN ls4 Corrections: (The following items were deleted from the chart) 11:25 10:45 08/04/2018 10:45 Discharged to Home. Impression: Fall due to bumping against ls4 object; Contusion of left lower leg - hematoma. Condition is Stable. Discharge Instructions: Contusion, Contusion, Owhm-mz-Tjlc, Fall Prevention in the Home, Xtmf-aw-Eyza, Hematoma, Hematoma, Jxnx-vq-Pmbe. Prescriptions for Tylenol-Codeine #3 300-30 mg Oral Tablet - take 2 tablet by ORAL route every 6 hours As needed; 30 tablet. and Forms are Medication Reconciliation Form, Thank You Letter, Antibiotic Education, Prescription Opioid Use. Follow up: Aleah Nicholson; When: 2 - 3 days; Reason: Recheck today's complaints, Continuance of care, Re-evaluation by your physician. Problem is new. Symptoms have improved. guerita
--- NOTE | 2018-08-04 10:47 | RAD REPORT ---
EXAM DESCRIPTION: USExtremity Venous Uni Ltd3/ 10:26 am CLINICAL HISTORY: left leg pain and swelling. COMPARISON: None. FINDINGS: Left common femoral, superficial femoral, popliteal and posterior tibial veins are compre ssible and demonstrate augmentation. Doppler demonstrates good flow. 6 x 2 centimeter hematoma is present within the anterior upper calf IMPRESSION: No evidence of deep venous thrombosis involving the left lower extremity. 6 centimeters hematoma anterior upper calf
--- NOTE | 2018-08-04 11:07 | RAD REPORT ---
EXAM DESCRIPTION: RAD - Tib Fib Left - 08/04/2018 10:59 am CLINICAL HISTORY: Pain;Swelling COMPARISON: No comparisons FINDINGS: No acute fracture or dislocation seen. Moderate osteoarthritis of the medial compartment o f the left knee is seen. Small posterior and large plantar calcaneal spur seen.
[2018-08-04 11:30] VITALS: BP 98/46; TEMP 96.7; O2SAT 99
== END 2018-08-04 11:25 | disposition home or self-care (01) ==
LOC: ER 09:40
DX: S80.12XA Contusion of left lower leg, initial encounter (principal); W01.0XXA Fall on same level from slipping, tripping and stumbling without subsequent striking against object, initial encounter; Y93.89 Activity, other specified; Y92.9 Unspecified place or not applicable; Z88.0 Allergy status to penicillin; Z95.0 Presence of cardiac pacemaker
CPT/HCPCS: 93971; 99283

== ENCOUNTER 2018-08-13 17:03 | Emergency (ER) | payer OTHER ==
--- OUTSIDE RECORDS SUMMARY | 2018-08-13 17:05 | XMS REPORT | Clinical Summary ---
:1960 Author Organization [facility] Address [address] [place] [address] Care Team Providers Name Role Phone Unavailable Primary Care Provider Unavailable Allergies Not on File Medications Not on file Active Problems Not on file Encounters Date Type Specialty Care Team Description 11/25/2017 Outside Orders Mar Chase, TEACHER ASSISTANT, RPSGT 11/01/2017 Hospital Encounter Chin-Cheri, Morbid obesity (HCC); Khadijah Acosta MD Encounter for pre-operative cardiovascular clearance; Pacemaker; Chronic congestive heart failure, unspecified heart failure type (HCC); Past use of tobacco; Sleep disorder breathing 10/20/2017 Orders Only Ana Gonzalez, Morbid obesity (HCC) (Primary Dx); HEELER MACHINE, ASSIGNMENT MANAGER Encounter for pre-operative cardiovascular clearance; Pacemaker; Chronic congestive heart failure, unspecified heart failure type (HCC); Past use of tobacco; Sleep disorder breathing after 08/12/2017 Social History Tobacco Use Types Packs/Day Years [...] - 11/07/2017 12:01 PM SCAN CDT after 08/12/2017 Results POLYSOMNOGRAPHY REPORT - SCAN (11/28/2017 1:31 PM CDT) Narrative Performed At POLYSOMNOGRAPHY REPORT - SCAN (11/07/2017 12:01 PM CDT) Narrative Performed At after 08/12/2017 Insurance Payer Benefit Plan / Group Subscriber ID Type Phone Address [employer] - UNITED MEDICARE HMO xxxxxxxxx MEDICARE MGD CARE MEDICAID MEDICAID OF [place] xxxxxxxxx Medicaid
--- OUTSIDE RECORDS SUMMARY | 2018-08-13 17:06 | XMS REPORT ---
[...] End Status Dosage System Date Date Furosemide [facility] 73261561903 40 MG Orally Active 1 tablet Once a day in am Metformin HCl ND 34752561708 500 MG Orally Active 1 tablet Twice a day with meals Lisinopril [facility] 85526118243 40 MG Orally Active 1 tablet Once a day Klor-Con 10 [facility] 23080411548 10 MEQ Orally Jun 01, Active 1 tablet Once a day 2018 Tylenol # 3 [facility] 0 300/30mg PO Once December 03Jan 02, Active 1 tablet daily in evening 2017 2017 as needed for severe pain Coreg [facility] 91180854351 12.5 MG Orally Active 1 tablet Once daily Glimepiride [facility] 90487642632 2 MG Orally Once Active 1 tablet a day Macario Aspirin [facility] 13532557170 81 MG Orally Active 1 tablet EC Low Dose Once a day Results No Known Results Summary Purpose eClinicalWorks Submission
--- OUTSIDE RECORDS SUMMARY | 2018-08-13 17:06 | XMS REPORT ---
:1960 [facility] Care Team Providers Name Role Phone [...] Status Dosage System Date Date Glimepiride ND 02515729441 2 MG Orally Once Active 1 tablet a day Macario Aspirin ND 03446166035 81 MG Orally Active 1 tablet EC Low Dose Once a day Lisinopril ND 88973723078 40 MG Orally Active 1 tablet Once a day Metformin HCl ND 00158885314 500 MG Orally Active 1 tablet Twice a day with meals Furosemide ND 71000259923 40 MG Orally Active 1 tablet Once a day in am Klor-Con 10 ND 32281903088 10 MEQ Orally Oct 01, Active 1 tablet Once a day 2018 Coreg [facility] 29086895672 12.5 MG Orally Active 1 tablet Once daily Results Name Result Date Reference Range Unit Abnormality Flag FLU TEST ----A Negative [id number] ----B Negative [id number] STREP A RAPID ----Result Negative [id number] Summary Purpose eClinicalWorks Submission
--- OUTSIDE RECORDS SUMMARY | 2018-08-13 17:06 | XMS REPORT ---
:1960 [facility] Address [address] [place] [address] Care Team Providers Name Role Phone JACQUI [...] Facility Department ID 2017-07-11 2017-07-11 [id number] 17:58:00 17:58:00 JACQUI Results Test Description Test Time Test Comments Text Results Atomic Results Result Comments Lipid Profile 2017-07-11 22:09:00 Test Item Value Reference Range Comments Cholesterol (test code=CHOL) 107 mg/dL 0-200 Triglycerides (test code=TRIG) 76 mg/dL 9-200 HDL (test code=HDL) 36 mg/dL 50-60 Chol/HDL (test code=CHOLPHDL) 3.0 Ratio 0.0-4.4 LDL, Calculated (test 56 0-130 (NOTE)RISK OF HEART DISEASEPublished code=LDLC) by [place] Heart AssociationAnalyte Optimal Boderline Increased RiskCHOL <200 200-239 >240TRIG <150 150-199 >200HDL Male: >60 <40HDL Female: >60 <50LDL <100 130-159 >160LDL NEAR OPTIMAL IS 100-129 VLDL (test code=VLDL) 15 mg/dL 5-40 LDL/HDL (test code=LDLPHDL) 2 Comprehensive Metabolic [id number] 22:09:00 Test Item Value Reference Range Comments [...] race is not provided, and the patient isAfrican-Panamanian, multiply by 1.212. If sex is not provided, and thepatient is female, multiply by 0.742. Results for patients <18 years ofage have not been validated by the MDRD study and should be interpretedwith caution.eGFR Result Interpretation:eGFR > or=60 is in the Normal RangeeGFR < 60 may mean kidney diseaseeGFR < 15 may mean kidney failureRanges recommended by the National Kidney Foundation,http://nkdep.nih .gov [id number] 22:05:00 Test Item Value Reference Range Comments NT ProBnp (test code=PBNP) 1920 pg/mL 0-124 CBC with [id number] 18:24:00 Test Item Value Reference Range Comments [...] Lymph Abs (test code=ALYMPH) 1.4 K/cumm 0.5-4.6 Porter Abs (test code=AMONO) 0.3 K/cumm 0.0-1.2 Eos Abs (test code=AEOS) 0.09 K/cumm 0.00-0.74 Baso Abs (test code=ABASO) 0.0 K/cumm 0.00-0.21
--- OUTSIDE RECORDS SUMMARY | 2018-08-13 17:07 | XMS REPORT ---
[...] Problem Coronary artery disease involving I25.10 Active [place] coronary artery of [place] heart, angina presence unspecified Assessment Shortness of [...]
--- OUTSIDE RECORDS SUMMARY | 2018-08-13 17:07 | XMS REPORT ---
:1960 [facility] Care Team Providers Name Role [...] Problem Coronary artery disease involving I25.10 Active [place] coronary artery of [place] heart, angina presence unspecified Problem Acute pain of left shoulder M25.512 Active Problem Acute nonintractable headache, R51 Active unspecified headache type Medications Medication Code Code Instructions Start End Status Dosage System Date Date Furosemide [facility] 76880910223 40 MG Orally Active 1 tablet Once a day in am Macario Aspirin EC [facility] 48322006770 81 MG Orally Active 1 tablet Low Dose Once a day Clarithromycin [facility] 43542291711 500 MG Orally Jan 30Jan Active 1 tablet every 12 hrs 2017 Klor-Con 10 [facility] 30683968344 10 MEQ Orally Jun 01, Active 1 tablet Once a day 2018 Glimepiride [facility] 82026286727 2 MG Orally Active 1 tablet Once a day Coreg [facility] 68605064388 12.5 MG Orally Active 1 tablet Once daily Metformin HCl [facility] 64528024999 500 MG Orally Active 1 tablet Twice a day with meals Lisinopril [facility] 89862597538 40 MG Orally Active 1 tablet Once a day Results Name Result Date Reference Range Unit Abnormality Flag STREP A RAPID ----Result Negative [id number] Summary Purpose eClinicalWorks Submission
--- OUTSIDE RECORDS SUMMARY | 2018-08-13 17:07 | XMS REPORT ---
[...] Problem Coronary artery disease involving I25.10 Active [place] coronary artery of [place] heart, angina presence unspecified Assessment Uncontrolled type [...] Assessment Coronary artery disease involving I25.10 Active [place] coronary artery of [place] heart, angina presence unspecified Problem Pain in [...] End Status Dosage System Date Date Lisinopril [facility] 18922834222 40 MG Orally Active 1 tablet Once a day Coreg [facility] 92983547955 12.5 MG Orally Active 1 tablet Once daily Furosemide ND 92709992590 40 MG Orally Active 1 tablet Once a day in am Klor-Con 10 [facility] 46384542693 10 MEQ Orally Jun 01, Active 1 tablet Once a day 2018 Metformin HCl ND 15805038605 500 MG Orally Active 1 tablet Twice a day with meals Macario Aspirin [facility] 29730507888 81 MG Orally Active 1 tablet EC Low Dose Once a day Glimepiride [facility] 21110616097 2 MG Orally Once Active 1 tablet a day Tylenol # 3 ND 0 300/30mg PO Once December 03, Jan 02, Active 1 tablet daily in evening 2017 2018 as needed for severe pain Results No Known Results Summary Purpose eClinicalWorks Submission
--- OUTSIDE RECORDS SUMMARY | 2018-08-13 17:07 | XMS REPORT ---
[...] Problem Coronary artery disease involving I25.10 Active [place] coronary artery of [place] heart, angina presence unspecified Problem Acute pain of left shoulder M25.512 Active Problem Acute nonintractable headache, R51 Active unspecified headache type Medications Medication Code Code Instructions Start End Status Dosage System Date Date Lisinopril [facility] 29657952697 40 MG Orally Active 1 tablet Once a day Metformin HCl [facility] 68287206956 500 MG Orally Active 1 tablet Twice a day with meals Klor-Con 10 [facility] 10737434790 10 MEQ Orally Jun 01, Active 1 tablet Once a day [address] [facility] 07667024422 2 MG Orally Once Active 1 tablet a day [address] [facility] 90906189425 12.5 MG Orally Active 1 tablet Once daily Macario Aspirin [facility] 12153301621 81 MG Orally Active 1 tablet EC Low Dose Once a day Furosemide [facility] 75751081666 40 MG Orally Active 1 tablet Once a day in am Results No Known Results Summary Purpose eClinicalWorks Submission
--- OUTSIDE RECORDS SUMMARY | 2018-08-13 17:07 | XMS REPORT ---
:1960 Author Organization eClinicalWorks Care Team Providers Name Role Phone Aelah Nicholson Provider Role Unavailable Allergies No Known [...] Problem Coronary artery disease involving I25.10 Active [place] coronary artery of [place] heart, angina presence unspecified Problem Acute pain of left shoulder M25.512 Active Problem Acute nonintractable headache, R51 Active unspecified headache type Medications No Known Medications Results No Known Results Summary Purpose eClinicalWorks Submission
--- OUTSIDE RECORDS SUMMARY | 2018-08-13 17:07 | XMS REPORT ---
[...] Problem Coronary artery disease involving I25.10 Active [place] coronary artery of [place] heart, angina presence unspecified Problem Chest pain, [...]
--- OUTSIDE RECORDS SUMMARY | 2018-08-13 17:08 | XMS REPORT ---
:1960 [facility] Team Providers Name Role [...] Problem Coronary artery disease involving I25.10 Active [place] coronary artery of [place] heart, angina presence unspecified Medications No Known Medications Results No Known Results Summary Purpose eClinicalWorks Submission
--- OUTSIDE RECORDS SUMMARY | 2018-08-13 17:08 | XMS REPORT ---
:1960 [facility] Care Team Providers Name Role Phone [...] Problem Coronary artery disease involving I25.10 Active [place] coronary artery of [place] heart, angina presence unspecified Problem CAD (coronary [...] Status Dosage System Date Date Metformin HCl [facility] 32079389908 500 MG Orally Active 1 tablet Twice a day with meals Glimepiride [facility] 84014173298 2 MG Orally Once Active 1 tablet a day Coreg [facility] 98551620985 12.5 MG Orally Active 1 tablet Once daily Macario Aspirin [facility] 37897893097 81 MG Orally Active 1 tablet EC Low Dose Once a day Furosemide [facility] 51771929586 40 MG Orally Active 1 tablet Once a day in am Klor-Con 10 [facility] 96989616255 10 MEQ Orally Aneta Active 1 tablet Once a day 2018 Lisinopril [facility] 97631056284 40 MG Orally Active 1 tablet Once a day Results Name Result Date Reference Range Unit Abnormality Flag FLU TEST ----A Negative [id number] ----B Negative [id number] STREP A RAPID ----Result Negative [id number] Summary Purpose eClinicalWorks Submission
--- OUTSIDE RECORDS SUMMARY | 2018-08-13 17:08 | XMS REPORT ---
[...] [place] heart, angina presence unspecified Assessment Constipation, unspecified [...] Assessment Coronary artery disease involving I25.10 Active [place] coronary artery of [place] heart, angina presence unspecified Problem Depression F32.9 Active Problem Edema R60.9 Active Problem Diabetes type 2, controlled E11.9 Active Problem Hypertension I10 Active Problem Peripheral vascular disease I73.9 Active Medications Medication Code Code Instructions Start End Status Dosage System Date Date Clarithromycin [facility] 42347834944 500 MG Orally Jun 01May Active 1 tablet every 12 hrs 2018 Glimepiride [facility] 75818012451 2 MG Orally Active 1 tablet Once a day Metformin HCl [facility] 55857463696 500 MG Orally Active 1 tablet with Twice a day meals Macario Aspirin EC [facility] 49332119833 81 MG Orally Active 1 tablet Low Dose Once a day Lisinopril [facility] 16807666699 40 MG Orally Active 1 tablet Once a day Klor-Con [address] [facility] 43984510494 10 MEQ Orally Aneta Active 1 tablet Once a day 2018 Furosemide [facility] 41826698257 40 MG Orally Active 1 tablet in am Once a day Coreg [facility] 75742850972 12.5 MG Orally Active 1 tablet Once daily Lactulose [facility] 74247342368 10 GM/15ML Jun 01May Active 15 -30 ml as Orally Once a 2019 , needed for day 2019 constipation Results Name Result Date Reference Range Unit Abnormality Flag Rapid Strep Summary Purpose eClinicalWorks Submission
[2018-08-13] MEDS ORDERED: HYDROCODONE/APAP 7.5/325 MG TAB ONE (18:08)
--- NOTE | 2018-08-13 18:51 | RAD REPORT ---
EXAM DESCRIPTION: US - Extremity Venous Uni Ltd - 08/13/2018 6:29 pm CLINICAL HISTORY: Left leg pain and swelling COMPARISON: None. TECHNIQUE: Real-time sonographic evaluation of the left lower extremity deep venous system was perfo rmed. FINDINGS: Normal compressibility, flow augmentation, phasic flow and spontaneous flow are identified in the left lower extremity common femoral, superficial femoral, popliteal and posterior tibial vein s. No intraluminal filling defects seen. Heterogeneous, hypoechoic mass in the left calf is again identified. This is approximately 3-3.5 cm i n size, decreased from the August 04 study. An old hematoma remains the most likely etiology. IMPRESSION: No DVT in the left lower extremity.
[2018-08-13 18:57] LABS: Absolute Lymphocytes (CBC) 1.7 K/uL (0.7-4.9); Absolute Monocytes 0.4 K/uL (0.1-1.3); Absolute Neutrophil 3.7 K/uL (1.8-8.0); Basophils % 0.9 % (0-1.3); Eosinophils % 1.6 % (0-4.4); Hematocrit 38.1 % (36.0-45.0); Lymphocytes % 28.5 % (15.3-44.8); MPV 10.7 fL (7.6-11.3); RBC Red Blood Cell Count 4.61 M/uL (3.86-4.86)
[2018-08-13 18:58] LABS: Protime INR 1.24
[2018-08-13 19:18] LABS: BUN Blood Urea Nitrogen 17 mg/dL (7-18); Bicarbonate 30 mmol/L (21-32); Glucose Level 137 mg/dL (74-106); Magnesium 2.1 mg/dL (1.8-2.4); NT PRO-BNP 3438 pg/mL (<125); Potassium 3.5 mmol/L (3.5-5.1); Sodium Level 143 mmol/L (136-145); Troponin (Emerg Dept Use Only) < 0.02 ng/mL (0.0-0.045)
--- NOTE | 2018-08-13 19:28 | RAD REPORT ---
EXAM DESCRIPTION: RAD - Chest Single View - 08/13/2018 6:16 pm CLINICAL HISTORY: Chest pain COMPARISON: July 23, 2018, April 2018, August 2015 TECHNIQUE: AP portable chest image was obtained 1802 hours . FINDINGS: No focal lung parenchymal process. Shallow inspiration accentuates lung markings. Signific ant failure or volume overload are doubtful. Defibrillator/ pacemaker is in place. Fullness of the le ft suprahilar region is present. This is likely vascular and parenchymal summation artifact accentuat ed by the shallow inspiration. This can be re-evaluated when the patient can tolerate standard two vi ew imaging. Lung mass is low in likelihood. Heart size is prominent but stable. No measurable pleural effusion and no pneumothorax. No acute bony abnormality seen. No acute aortic findings suspected. IMPRESSION: No peripheral infiltrate identified. Heart remains prominent but stable. Lung markings a re prominent. A minimal failure or volume overload is possible. Left suprahilar fullness is believed to be summation artifact with mass low in likelihood. This can b e re-evaluated at a time when the patient can tolerate standard two view chest exam.
--- NOTE | 2018-08-13 19:29 | RAD REPORT ---
EXAM DESCRIPTION: RAD - Foot Left 3 View - 08/13/2018 6:16 pm CLINICAL HISTORY: Foot pain, diabetes COMPARISON: None. FINDINGS: No fracture, dislocation or periosteal reaction. No acute or destructive bony process. No radiographic evidence for osteomyelitis. Patient does have a large plantar spur. Soft tissues over the dorsum of the foot appear edematous. No air, foreign body or calcification. IMPRESSION: Soft tissue edema with no air, foreign body or abnormal calcification. Large plantar spur.
--- NOTE | 2018-08-13 20:18 | EDPHYS ---
Physician Documentation [facility] Name: Sukh York Age: 58 yrs Sex: Female : 1960 Arrival Date: 08/13/2018 Time: 17:04 Bed 14 Private MD: Aleah Nicholson ED Physician Angel Fowler HPI: 08/13 17:43 This 58 yrs old Female presents to ER via Wheelchair with complaints of Leg kb Injury, Dizziness. 17:43 The patient presents with an injury, pain, that is acute, swelling, tenderness. The kb complaints affect the left brush and dorsum of left foot. Context: The problem was sustained at home, resulted from the patient falling, the patient can fully bear weight, the patient is able to ambulate, Problem is a result from a previous injury: No. Onset: The symptoms/episode began/occurred 2.5 week(s) ago. Modifying factors: The symptoms are alleviated by nothing. the symptoms are aggravated by movement, weight bearing. Associated signs and symptoms: Pertinent positives: calf tenderness, swelling, warmth, Pertinent negatives fever, nausea, numbness, rash, tingling, vomiting, weakness. Treatment prior to arrival includes: no previous treatment. Severity of symptoms: At their worst the symptoms were moderate, in the emergency department the symptoms are unchanged. The patient has not experienced similar symptoms in the past. The patient has been recently seen at the [facility] Emergency Department, a couple of weeks ago, for similar complaints X-rays were performed, an ultrasound was performed. Pt reports she tripped over speed bump 2.5 weeks ago. Came here and had x-rays and US done, has follow up appt tomorrow, but today the pain was worse than it had been. Reports she felt like she was going to pass out when she was mopping the floor. Also reports she feels a "poking" pain in left chest. Concerned because she has a defibrillator. The poking pain happened this morning and again when she sat down after mopping, got better after rubbing chest. . Historical: - Allergies: 17:26 PENICILLINS; hb - Home Meds: 17:26 Aspirin Oral [Active]; carvedilol Oral [Active]; Furosemide Oral [Active]; Glimepiride hb Oral [Active]; Klor-Con Oral [Active]; lisinopril Oral [Active]; Metformin Oral [Active]; - PMHx: 17:26 Diabetes - NIDDM; CHF; Hypertension; hb - PSHx: 17:26 pacemaker with defibrillator; hb - Immunization history:: Adult Immunizations. - Social history:: Smoking status: Patient/guardian denies using tobacco. - Ebola Screening: : No symptoms or risks identified at this time. ROS: 17:43 Constitutional: Negative for fever, chills, and weight loss, ENT: Negative for injury, kb pain, and discharge, Neck: Negative for injury, pain, and swelling, Respiratory: Negative for shortness of breath, cough, wheezing, and pleuritic chest pain, Abdomen/GI: Negative for abdominal pain, nausea, vomiting, diarrhea, and constipation, Back: Negative for injury and pain, : Negative for injury, bleeding, discharge, and swelling. 17:43 Cardiovascular: Positive for chest pain, edema, Negative for orthopnea, palpitations, paroxysmal nocturnal dyspnea. 17:43 MS/extremity: Positive for injury or acute deformity, ecchymosis, pain, swelling, tenderness, of the dorsum of left foot and left brush. 17:43 Skin: Positive for ecchymosis, of the left brush and dorsum of left foot. 17:43 Neuro: Positive for dizziness, near syncope. Exam: 17:43 Constitutional: This is a well developed, well nourished patient who is awake, alert, kb and in no acute distress. Head/Face: Normocephalic, atraumatic. ENT: Nares patent. No nasal discharge, no septal abnormalities noted. Tympanic membranes are normal and external auditory canals are clear. Oropharynx with no redness, swelling, or masses, exudates, or evidence of obstruction, uvula midline. Mucous membranes moist. Neck: Trachea midline, no thyromegaly or masses palpated, and no cervical lymphadenopathy. Supple, full range of motion without nuchal rigidity, or vertebral point tenderness. No Meningismus. Chest/axilla: Normal chest wall appearance and motion. Nontender with no deformity. No lesions are appreciated. Cardiovascular: Regular rate and rhythm with a normal S1 and S2. No gallops, murmurs, or rubs. Normal PMI, no JVD. No pulse deficits. Respiratory: Lungs have equal breath sounds bilaterally, clear to auscultation and percussion. No rales, rhonchi or wheezes noted. No increased work of breathing, no retractions or nasal flaring. Abdomen/GI: Soft, non-tender, with normal bowel sounds. No distension or tympany. No guarding or rebound. No evidence of tenderness throughout. Skin: Warm, dry with normal turgor. Normal color with no rashes, no lesions, and no evidence of cellulitis. Neuro: Awake and alert, GCS 15, oriented to person, place, time, and situation. Cranial nerves II-XII grossly intact. Motor strength 5/5 in all extremities. Sensory grossly intact. Cerebellar exam normal. Normal gait. 17:43 Cardiovascular: Edema: 2+ edema to level of left foot, left toes, right foot and right toes. 17:43 Musculoskeletal/extremity: Extremities: grossly normal except: noted in the dorsum of left foot and left brush: ecchymosis, erythema, pain, swelling, tenderness, ROM: limited active range of motion due to pain, in the dorsum of left foot and left brush, Circulation is intact in all extremities. Sensation intact. Weight bearing: can bear weight with assistance only. 18:00 ECG was reviewed by the Attending Physician. kdr Vital Signs: 17:24 BP 127 / 98; Pulse 56; Resp 16; Temp 97.9; Pulse Ox 97% on R/A; Pain 9/10; hb 18:24 rb1 18:49 BP 117 / 57; Pulse 75; Resp 19; Pulse Ox 100% ; rb1 19:30 BP 112 / 61; Pulse 66; Resp 17 S; Pulse Ox 98% on R/A; cc3 20:18 BP 105 / 67; Pulse 71; Resp 17 S; Pulse Ox 98% on R/A; cc3 18:24 Pt. went to US rb1 MDM: 17:33 Patient medically screened. kb 17:55 Data reviewed: vital signs, nurses notes. Data interpreted: Pulse oximetry: on room air kb is 97 %. Interpretation: normal. 20:15 Counseling: I had a detailed discussion with the patient and/or guardian regarding: the kb historical points, exam findings, and any diagnostic results supporting the discharge/admit diagnosis, lab results, radiology results, the need for outpatient follow up, a family practitioner, a orthopedic surgeon, to return to the emergency department if symptoms worsen or persist or if there are any questions or concerns that arise at home. ED course: Pt is not having any difficulty breathing or chest pain. States she wants to go home and follow up with pcp tomorrow as scheduled. Educated to return for chest pain, sob or any other concerns.. 08/13 17:40 Order name: Basic Metabolic Panel; Complete Time: 19:20 kb 08/13 17:40 Order name: CBC with Diff; Complete Time: 19:04 kb 08/13 17:40 Order name: Magnesium; Complete Time: 19:20 kb 08/13 17:40 Order name: NT PRO-BNP; Complete Time: 19:20 kb 08/13 17:40 Order name: PT-INR; Complete Time: 19:04 kb 08/13 17:40 Order name: Troponin (emerg Dept Use Only); Complete Time: 19:20 kb 08/13 17:33 Order name: Foot Left 3 View XRAY; Complete Time: 19:30 kb 08/13 17:40 Order name: XRAY Chest (1 view); Complete Time: 19:30 kb 08/13 17:40 Order name: EKG; Complete Time: 17:42 kb 08/13 17:40 Order name: Cardiac monitoring; Complete Time: 17:59 kb 08/13 17:40 Order name: EKG - Nurse/Tech; Complete Time: 17:59 kb 08/13 17:40 Order name: IV Saline Lock; Complete Time: 18:48 kb 08/13 17:40 Order name: US Extremity Venous Unilateral Ltd; Complete Time: 18:53 kb 08/13 17:40 Order name: Labs collected and sent; Complete Time: 18:48 kb 08/13 17:40 Order name: O2 Per Protocol; Complete Time: 18:34 kb 08/13 17:40 Order name: O2 Sat Monitoring; Complete Time: 18:34 kb 08/13 20:13 Order name: Orthopedic shoe: boot; Complete Time: 20:34 kb EC:00 Rate is 80 beats/min. Rhythm is regular, Paced with Occasional PVCs. QRS interval is kdr normal. Clinical impression: Paced rhythm with occasioinal PVCs. Administered Medications: 17:56 Drug: [place] (7.5 mg-325 mg) 1 tabs Route: PO; rb1 19:00 Follow up: Response: No adverse reaction; Pain is decreased cc3 Disposition: 08/14 07:28 Co-signature as Attending Physician, Angel Fowler MD I agree with the assessment and kdr plan of care. Disposition: 08/13/18 20:17 Discharged to Home. Impression: Contusion of left lower leg, Fall on same level from slipping, tripping and stumbling. - Condition is Stable. - Discharge Instructions: Contusion, [id number]. - Medication Reconciliation Form, Thank You Letter, Antibiotic Education, Prescription Opioid Use form. - Follow up: Emergency Department; When: As needed; Reason: Worsening of condition. Follow up: Private Physician; When: 2 - 3 days; Reason: Recheck today's complaints, Continuance of care, Re-evaluation by your physician. Signatures: Dispatcher [employer] EDMS Amalia Brothers, ANIMAL DAYCARE PROVIDER-C ANIMAL DAYCARE PROVIDER-Ckb Angel Fowler MD MD [facility] Tiesha Barker RN RN [facility] Juliana Christopher RN RN Rohini Johnson cc3 Corrections: (The following items were deleted from the chart) 08/13 20:34 20:17 08/13/2018 20:17 Discharged to Home. Impression: Contusion of left lower leg; cc3 Fall on same level from slipping, tripping and stumbling. Condition is Stable. Forms are Medication Reconciliation Form, Thank You Letter, Antibiotic Education, Prescription Opioid Use. Follow up: Emergency Department; When: As needed; Reason: Worsening of condition. Follow up: Private Physician; When: 2 - 3 days; Reason: Recheck today's complaints, Continuance of care, Re-evaluation by your physician. kb
--- NOTE | 2018-08-13 20:18 | ER ---
Nurse's Notes [facility] Name: Sukh York Age: 58 yrs Sex: Female : 1960 Arrival Date: 08/13/2018 Time: 17:04 Bed 14 Private MD: Aleah Nicholson Diagnosis: Contusion of left lower leg;Fall on same level from slipping, tripping and stumbling Presentation: 08/13 17:25 Presenting complaint: Worsening left foot pain after fall 2 weeks ago. Pt reports she hb stood to mop the floor today, the pain became so severe that it made her feel like she was going to pass out. Transition of care: patient was not received from another setting of care. Onset of symptoms is unknown. Risk Assessment: Do you want to hurt yourself or someone else? Patient reports no desire to harm self or others. Care prior to arrival: None. 17:25 Method Of Arrival: Wheelchair hb 17:25 Acuity: RADHA 4 hb 17:30 Initial Sepsis Screen: Does the patient meet any 2 criteria? No. Patient's initial rb1 sepsis screen is negative. Does the patient have a suspected source of infection? No. Patient's initial sepsis screen is negative. Triage Assessment: 19:15 Injury Description: Bruise sustained to left foot and dorsum of left foot. cc3 Historical: - Allergies: 17:26 PENICILLINS; hb - Home Meds: 17:26 Aspirin Oral [Active]; carvedilol Oral [Active]; Furosemide Oral [Active]; Glimepiride hb Oral [Active]; Klor-Con Oral [Active]; lisinopril Oral [Active]; Metformin Oral [Active]; - PMHx: 17:26 Diabetes - NIDDM; CHF; Hypertension; hb - PSHx: 17:26 pacemaker with defibrillator; hb - Immunization history:: Adult Immunizations. - Social history:: Smoking status: Patient/guardian denies using tobacco. - Ebola Screening: : No symptoms or risks identified at this time. Screenin:30 Abuse screen: Denies threats or abuse. Nutritional screening: No deficits noted. rb1 Tuberculosis screening: No symptoms or risk factors identified. 17:30 Fall Risk Fall in past 12 months (25 points). Secondary diagnosis (15 points) impaired rb1 mobility, No IV (0 pts). Ambulatory Aid- None/Bed Rest/Nurse Assist (0 pts). Gait- Impaired (20 pts.). Mental Status- Oriented to own ability (0 pts). Total [place]on Fall Scale indicates High Risk Score (45 or more points). Fall prevention measures have been instituted. Side Rails Up X 2 Placed Close to Nursing Station 1:1 Attendant Assigned Frequent Obs/Assessments Occuring Family Present and informed to notify staff if the need to leave the bedside As available patient and family educated on Fall Prevention Program and Strategies. Assessment: 17:30 General: Appears uncomfortable, Behavior is calm, cooperative. Pain: Complains of pain rb1 in left leg Pain currently is 10 out of 10 on a pain scale. Aggravated by weight bearing. Neuro: Level of Consciousness is awake, alert, obeys commands, Oriented to person, place, time, situation. Cardiovascular: Capillary refill < 3 seconds is brisk in bilateral fingers. Respiratory: Airway is patent Respiratory effort is even, unlabored, Respiratory pattern is regular, symmetrical. GI: No signs and/or symptoms were reported involving the gastrointestinal system. : No signs and/or symptoms were reported regarding the genitourinary system. Derm: Skin is pink, warm \T\ dry. Musculoskeletal: Range of motion: limited in left leg. 18:25 Reassessment: Pt. in US. rb1 19:15 Reassessment: Patient appears in no apparent distress at this time. Patient and/or cc3 family updated on plan of care and expected duration. Pain level reassessed. Patient is alert, oriented x 3, equal unlabored respirations, skin warm/dry/pink. Received this female patient from morning shift DAY [place] as a case of left leg injury. With IV cannula gauge 20 at the right ACV saline locked. 20:30 Reassessment: Patient appears in no apparent distress at this time. Patient and/or cc3 family updated on plan of care and expected duration. Pain level reassessed. Patient is alert, oriented x 3, equal unlabored respirations, skin warm/dry/pink. NIKOS Brothers discharged the patient home, no prescription given. IV cannula removed and patient left ER vitally stable by wheelchair escorted by her son. Vital Signs: 17:24 BP 127 / 98; Pulse 56; Resp 16; Temp 97.9; Pulse Ox 97% on R/A; Pain 9/10; hb 18:24 rb1 18:49 BP 117 / 57; Pulse 75; Resp 19; Pulse Ox 100% ; rb1 19:30 BP 112 / 61; Pulse 66; Resp 17 S; Pulse Ox 98% on R/A; cc3 20:18 BP 105 / 67; Pulse 71; Resp 17 S; Pulse Ox 98% on R/A; cc3 18:24 Pt. went to US rb1 ED Course: 17:04 Patient arrived in ED. ss4 17:05 Aleah Nicholson MD is Private Physician. ss4 17:25 Triage completed. hb 17:26 Arm band placed on. hb 17:33 Amalia Brothers FNP-C is PHCP. kb 17:33 Angel Fowler MD is Attending Physician. kb 17:36 Tiesha Barker, DAY is Primary Nurse. rb1 17:55 EKG done, by biomass technician. reviewed by Amalia CHUN. sm3 17:58 Patient has correct armband on for positive identification. Bed in low position. Call [facility] light in reach. Side rails up X2. Adult w/ patient. Warm blanket given. traffic monitor specialist on. Pulse ox on. NIBP on. 18:16 XRAY Chest (1 view) In Process Unspecified. EDMS 18:16 Foot Left 3 View XRAY In Process Unspecified. EDMS 18:29 US Extremity Venous Unilateral Ltd In Process Unspecified. EDMS 18:47 Initial lab(s) drawn, by il, sent to lab. Inserted saline lock: 20 gauge in right [facility] antecubital area, using aseptic technique. Blood collected. 18:47 Basic Metabolic Panel Sent. 5 18:47 CBC with Diff Sent. 5 18:48 Magnesium Sent. 5 18:48 NT PRO-BNP Sent. 5 18:48 PT-INR Sent. 5 18:48 Troponin (emerg Dept Use Only) Sent. [facility] 19:00 Report given to DAY [place]. rb1 20:30 No provider procedures requiring assistance completed. IV discontinued, intact, cc3 bleeding controlled, No redness/swelling at site. Pressure dressing applied. Administered Medications: 17:56 Drug: [place] (7.5 mg-325 mg) 1 tabs Route: PO; rb1 19:00 Follow up: Response: No adverse reaction; Pain is decreased cc3 Outcome: 20:17 Discharge ordered by MD. tang 20:30 Discharged to home via wheelchair, with family. cc3 20:30 Condition: stable 20:30 Discharge instructions given to patient, Instructed on discharge instructions, follow up and referral plans. Demonstrated understanding of instructions, follow-up care. 20:34 Patient left the ED. cc3 Signatures: Dispatcher [employer] EDMS Amalia Brothers, ZAHIDA-C MACHINE LEAD BURNER-Tiesha Duarte RN RN [facility] Juliana Christopher RN RN hb Martinez, Maria 5 Ameena Villanueva 3 Rohini Johnson cc3 Sarah Au 4 Corrections: (The following items were deleted from the chart) 17:27 17:25 Presenting complaint: Worsening left foot pain after fall 2 weeks ago. hb hb
[2018-08-13 21:07] VITALS: TEMP 97.9
[2018-08-13 21:09] VITALS: BP 117/57; O2SAT 100
--- NOTE | 2018-08-14 06:13 | EKG ---
Test Date: 2018-08-13 Test Time: 17:50:35 [employer] Manager: CHRISTINE MEASUREMENT RESULTS: Intervals: Rate: 80 SD: 144 QRSD: 166 QT: 426 QTc: 491 [place]: P: 73 SD: 144 QRS: 104 T: -78 INTERPRETIVE STATEMENTS: Atrial-Paced rhythm with premature ventricular complexes occasional sinus complexes Intraventricular conduction delay Abnormal ECG Compared to ECG 07/23/2018 20:22:12 Left ventricular hypertrophy is no longer present Electronically Signed On 08-14-18 06:12:37 CDT by Papa Tellez
== END 2018-08-13 20:34 | disposition home or self-care (01) ==
LOC: ER 17:03
DX: S80.12XA Contusion of left lower leg, initial encounter (principal); W18.09XA Striking against other object with subsequent fall, initial encounter; E11.9 Type 2 diabetes mellitus without complications; I11.0 Hypertensive heart disease with heart failure; I50.9 Heart failure, unspecified; Z79.84 Long term (current) use of oral hypoglycemic drugs; Z79.82 Long term (current) use of aspirin; Z88.0 Allergy status to penicillin
CPT/HCPCS: 36415; 71045; 80048; 83735; 83880; 84484; 85025; 85610; 93005; 93971; 99284

== ENCOUNTER 2019-08-20 16:57 | Emergency (ER) | payer OTHER ==
--- OUTSIDE RECORDS SUMMARY | 2019-08-20 17:00 | XMS REPORT ---
:1960 Author Organization [employer] Care Team Providers Name Role Phone Aleah Nicholson Provider Role Unavailable Allergies, Adverse Reactions, Alerts Substance Reaction Event Type penicillin Info Not Available Drug Allergy Problems Problem Type Condition Code Onset Dates Condition Status Problem Pain in right hand M79.641 Active Problem Pain of left hand M79.642 Active Problem Pain in left knee M25.562 Active Problem Varicose veins of bilateral lower I83.813 Active extremities with pain Assessment Uncontrolled type 2 diabetes E11.65 Active mellitus without complication, without long-term current use of insulin Problem Uncontrolled type 2 diabetes E11.65 Active mellitus without complication, without long-term current use of insulin Assessment URI, acute J06.9 Active Problem Abnormal finding on mammography R92.8 Active Assessment Acute pharyngitis, unspecified J02.9 Active etiology Problem Hypertension, unspecified type I10 Active Problem Acute nonintractable headache, R51 Active unspecified headache type Problem Neck pain M54.2 Active Problem Acute pain of left shoulder M25.512 Active Problem Cardiomyopathy I42.9 Active Problem CAD (coronary artery disease) I25.10 Active Problem AICD (automatic Z95.810 Active cardioverter/defibrillator) present Problem Primary osteoarthritis of right M17.11 Active knee Problem Morbid obesity E66.01 Active Problem Pain, joint, knee, right M25.561 Active Problem Bruising T14.8XXA Active Problem Left foot pain M79.672 Active Problem Tremor of both hands R25.1 Active Problem Coronary artery disease involving I25.10 Active pilot [place] coronary artery of [place] heart, angina presence unspecified Problem Hypertension I10 Active Problem Hematoma of left lower extremity, S80.12XD Active subsequent encounter Problem Polyarthralgia M25.50 Active Problem Edema R60.9 Active Problem Body mass index (BMI) of 40.0-44.9 Z68.41 Active in adult Problem Depression F32.9 Active Problem Morbid (severe) obesity due to E66.01 Active excess calories Problem Peripheral vascular disease I73.9 Active Problem Left leg pain M79.605 Active Problem Swelling of left lower extremity M79.89 Active Problem Pain in right knee M25.561 Active Problem Cardiomyopathy, unspecified type I42.9 Active Problem Shortness of breath R06.02 Active Problem Varicose veins of both lower I83.93 Active extremities, unspecified whether complicated Problem Peripheral edema R60.9 Active Problem Chest pain, unspecified type R07.9 Active Problem Other chronic pain G89.29 Active Problem Multiple falls R29.6 Active Problem Heart disease I51.9 Active Problem Constipation, unspecified K59.00 Active constipation type Problem Diabetes type 2, controlled E11.9 Active Problem Congestive heart failure I50.9 Active Problem Chronic congestive heart failure, I50.9 Active unspecified heart failure type Problem BMI 45.0-49.9, adult Z68.42 Active Medications Medication Code Code Instructions Start End Status Dosage System Date Date Zofran [facility] 72610193974 4 MG Orally 1 August Active as directed tablet orally 2018 every 6-8 hours Klor-Con [address] [facility] 35472509737 10 MEQ Orally May 23, Active 1 tablet Once a day [address] [facility] 0 Orally Twice Active 1 tablet 49/51mg daily Macario Aspirin [facility] 18934675505 81 MG Orally Active 1 tablet EC Low Dose Once a day Furosemide [facility] [address]-21 40 MG Orally Active 1 tablet in Twice a day am Metformin HCl [facility] 72061595299 500 MG Orally Active 1 tablet Twice a day with meals Glimepiride [facility] 36167600297 2 MG Orally Active 1 tablet Once a day Lisinopril [facility] 80291571869 40 MG Orally Active 1 tablet Once a day Coreg [facility] 93252628493 12.5 MG Orally Active 1 tablet Once daily Results Name Result Date Reference Range Unit Abnormality Flag GLUCOSE FINGER ----Result 156--RBS [id number] STREP A+ RAPID HEMOGLOBIN A1C ----A1C 5.7% [id number] Summary Purpose [employer]Clinical[employer] Submission
--- OUTSIDE RECORDS SUMMARY | 2019-08-20 17:00 | XMS REPORT ---
:1960 [facility] [address] [place] [address] Care Team Providers Name Role Phone JACQUI [...] Facility Department ID 2017-07-11 2017-07-11 [facility] [id number] 17:58:00 17:58:00 JACQUI Results Test Description Test Time Test Comments Text Results Atomic Results Result Comments Lipid Profile 2017-07-11 22:09:00 Test Item Value Reference Range Comments Cholesterol (test code=CHOL) 107 mg/dL 0-200 Triglycerides (test code=TRIG) 76 mg/dL 9-200 HDL (test code=HDL) 36 mg/dL 50-60 Chol/HDL (test code=CHOLPHDL) 3.0 Ratio 0.0-4.4 LDL, Calculated (test 56 0-130 (NOTE)RISK OF HEART DISEASEPublished code=LDLC) by [place] Heart AssociationAnalyte Optimal Boderline Increased RiskCHOL <200 200-239 >240TRIG <150 150-199 >200HDL Male: >60 <40HDL Female: >60 <50LDL <100 130-159 >160LDL NEAR OPTIMAL IS 100-129 VLDL (test code=VLDL) 15 mg/dL 5-40 LDL/HDL (test code=LDLPHDL) 2 Comprehensive Metabolic [id number] 22:09:00 Test Item Value Reference Range Comments [...] race is not provided, and the patient isAfrican-[place], multiply by 1.212. If sex is not provided, and thepatient is female, multiply by 0.742. Results for patients <18 years ofage have not been validated by the MDRD study and should be interpretedwith caution.eGFR Result Interpretation:eGFR > or=60 is in the Normal RangeeGFR < 60 may mean kidney diseaseeGFR < 15 may mean kidney failureRanges recommended by the National Kidney Foundation,http://nkdep.nih .gov [id number] 22:05:00 Test Item Value Reference Range Comments NT ProBnp (test code=PBNP) 1920 pg/mL 0-124 CBC with [id number] 18:24:00 Test Item Value Reference Range Comments [...] Lymph Abs (test code=ALYMPH) 1.4 K/cumm 0.5-4.6 Dickinson Abs (test code=AMONO) 0.3 K/cumm 0.0-1.2 Eos Abs (test code=AEOS) 0.09 K/cumm 0.00-0.74 Baso Abs (test code=ABASO) 0.0 K/cumm 0.00-0.21
--- OUTSIDE RECORDS SUMMARY | 2019-08-20 17:02 | XMS REPORT ---
:1960 Author Organization [employer] Care Team Providers Name Role Phone Juan Nicholsonen Provider Role Unavailable Allergies, Adverse Reactions, Alerts Substance Reaction Event Type penicillin Info Not Available Drug Allergy Problems Problem Type Condition Code Onset Dates Condition Status Problem Peripheral edema R60.9 Active Problem Pain in left knee M25.562 Active Problem Pain in right knee M25.561 Active Problem Other chronic pain G89.29 Active Problem Shortness of breath R06.02 Active Problem Neck pain M54.2 Active Problem Acute pain of left shoulder M25.512 Active Problem Acute nonintractable headache, R51 Active unspecified headache type Problem Cardiomyopathy, unspecified type I42.9 Active Problem Varicose veins of both lower I83.93 Active extremities, unspecified whether complicated Problem Chronic congestive heart failure, I50.9 Active unspecified heart failure type Problem Multiple falls R29.6 Active Problem Polyarthralgia M25.50 Active Problem AICD (automatic Z95.810 Active cardioverter/defibrillator) present Problem Chest pain, unspecified type R07.9 Active Problem BMI 45.0-49.9, adult Z68.42 Active Problem Coronary artery disease involving I25.10 Active [place] coronary artery of [place] heart, angina presence unspecified Problem Tremor of both hands R25.1 Active Problem Cardiomyopathy I42.9 Active Problem CAD (coronary artery disease) I25.10 Active Problem Constipation, unspecified K59.00 Active constipation type Problem Congestive heart failure I50.9 Active Assessment BMI 45.0-49.9, adult Z68.42 Active Assessment Uncontrolled type 2 diabetes E11.65 Active mellitus without complication, without long-term current use of insulin Assessment Coronary artery disease involving I25.10 Active [place] coronary artery of [place] heart, angina presence unspecified Assessment Peripheral edema R60.9 Active Assessment Morbid obesity E66.01 Active Assessment AICD (automatic Z95.810 Active cardioverter/defibrillator) present Assessment Varicose veins of both lower I83.93 Active extremities, unspecified whether complicated Assessment Right leg pain M79.604 Active Assessment Hypertension, unspecified type I10 Active Problem Peripheral vascular disease I73.9 Active Problem Primary osteoarthritis of right M17.11 Active knee Assessment Status post fall Z91.81 Active Problem Pain, joint, knee, right M25.561 Active Problem Morbid (severe) obesity due to E66.01 Active excess calories Problem Morbid obesity E66.01 Active Problem Body mass index (BMI) of 40.0-44.9 Z68.41 Active in adult Problem Status post fall Z91.81 Active Problem Hematoma of left lower extremity, S80.12XD Active subsequent encounter Problem Right leg pain M79.604 Active Problem Diabetes type 2, controlled E11.9 Active Problem Left leg pain M79.605 Active Problem Heart disease I51.9 Active Problem Left foot pain M79.672 Active Problem Hypertension I10 Active Problem Bruising T14.8XXA Active Problem Edema R60.9 Active Problem Swelling of left lower extremity M79.89 Active Problem Depression F32.9 Active Problem Pain in right hand M79.641 Active Problem Varicose veins of bilateral lower I83.813 Active extremities with pain Problem Abnormal finding on mammography R92.8 Active Problem Pain of left hand M79.642 Active Problem Hypertension, unspecified type I10 Active Problem Uncontrolled type 2 diabetes E11.65 Active mellitus without complication, without long-term current use of insulin Medications Medication Code Code Instructions Start End Status Dosage System Date Date Metformin HCl [facility] 73362914347 500 MG Orally Active 1 tablet Twice a day with meals Zofran [facility] 72558167505 4 MG Orally 17 August Active as directed tablet orally 2018 every 6-8 hours Entresto ND 0 Orally Twice Active 1 tablet 49/51mg daily Lisinopril [facility] 32854562484 40 MG Orally Active 1 tablet Once a day Blood Glucose NDC 0 as directed Apr 20, Active as directed Monitor Test BS once 2018 (DISPENSE daily BLOOD GLUCOSE MONITOR FORMULARY TO INSURANCE) Glimepiride ND 38378411138 2 MG Orally Active 1 tablet Once a day Lancets [facility] 95239838901 - as directed Apr 20, Active as directed Test BS once 2019 (dispense daily lancets formulary to insurance) Macario Aspirin [facility] 02915216064 81 MG Orally Active 1 tablet EC Low Dose Once a day Klor-Con 10 [facility] 43155550758 10 MEQ Orally Active 1 tablet Once a day Furosemide [facility] 22826991954 40 MG Orally Active 1 tablet in Once a day am Coreg [facility] 94993432181 12.5 MG Orally Active 1 tablet Once daily Blood Glucose ND 0 as directed Apr 20, Active as directed Test Strip Test BS once 2018 (DISPENSE daily BLOOD GLUCOSE TEST STRIPS FORMULARY TO INSURANCE) Results Name Result Date Reference Range Unit Abnormality Flag GLUCOSE FINGER ----Result 129--RBS [id number] Summary Purpose eClinicalWorks Submission
--- OUTSIDE RECORDS SUMMARY | 2019-08-20 17:02 | XMS REPORT ---
[...] lower I83.813 Active extremities with pain Problem Uncontrolled type 2 diabetes E11.65 Active mellitus without complication, without long-term current use of insulin Problem Abnormal finding on mammography R92.8 Active Problem Hypertension, unspecified type I10 Active [...] Problem Coronary artery disease involving I25.10 Active [place] coronary artery of [place] heart, angina presence unspecified Problem Hypertension I10 [...] Problem BMI 45.0-49.9, adult Z68.42 Active Medications No Known Medications Results No Known Results Summary Purpose eClinicalWorks Submission
--- OUTSIDE RECORDS SUMMARY | 2019-08-20 17:03 | XMS REPORT ---
:1960 [facility] Care Team Providers Name Role Phone Aleah Nicholson Provider Role Unavailable Allergies No Known Allergies Problems Problem Type Condition Code Onset Dates Condition Status Problem Peripheral edema R60.9 Active Problem Pain in left knee M25.562 Active Problem Pain in right knee M25.561 Active Problem Other chronic pain G89.29 Active Problem Shortness of breath R06.02 Active Problem Neck pain M54.2 Active Problem Peripheral vascular disease I73.9 Active Problem Acute pain of left shoulder M25.512 Active Problem Acute nonintractable headache, R51 Active unspecified headache type Problem Cardiomyopathy, unspecified type I42.9 Active Problem Varicose veins of both lower I83.93 Active extremities, unspecified whether complicated Problem Primary osteoarthritis of right M17.11 Active knee Problem Pain, joint, knee, right M25.561 Active Problem Chronic congestive heart failure, I50.9 Active unspecified heart failure type Problem Morbid (severe) obesity due to E66.01 Active excess calories Problem Morbid obesity E66.01 Active Problem Body mass index (BMI) of 40.0-44.9 Z68.41 Active in adult Problem Status post fall Z91.81 Active Problem Hematoma of left lower extremity, S80.12XD Active subsequent encounter Problem Multiple falls R29.6 Active Problem Polyarthralgia M25.50 Active Problem Diabetes type 2, controlled E11.9 Active Problem Right leg pain M79.604 Active Problem AICD (automatic Z95.810 Active cardioverter/defibrillator) present Problem Heart disease I51.9 Active Problem Left leg pain M79.605 Active Problem Hypertension I10 Active Problem Left foot pain M79.672 Active Problem Edema R60.9 Active Problem Bruising T14.8XXA Active Problem Depression F32.9 Active Problem Swelling of left lower extremity M79.89 Active Problem Pain in right hand M79.641 Active Problem Chest pain, unspecified type R07.9 Active Problem Varicose veins of bilateral lower I83.813 Active extremities with pain Problem BMI 45.0-49.9, adult Z68.42 Active Problem Abnormal finding on mammography R92.8 Active Problem Coronary artery disease involving I25.10 Active [place] coronary artery of [place] heart, angina presence unspecified Problem Pain of left hand M79.642 Active Problem Tremor of both hands R25.1 Active Problem Hypertension, unspecified type I10 Active Problem Cardiomyopathy I42.9 Active Problem Uncontrolled type 2 diabetes E11.65 Active mellitus without complication, without long-term current use of insulin Problem CAD (coronary artery disease) I25.10 Active Problem Constipation, unspecified K59.00 Active constipation type Problem Congestive heart failure I50.9 Active Medications No Known Medications Results No Known Results Summary Purpose eClinicalWorks Submission
--- OUTSIDE RECORDS SUMMARY | 2019-08-20 17:04 | XMS REPORT ---
:1960 Author Organization [employer]ClinicalWorks Care Team Providers Name Role Phone Aleah Nicholson Provider Role Unavailable Allergies, Adverse Reactions, Alerts Substance Reaction Event Type penicillin Info Not Available Drug Allergy Problems Problem Type Condition Code Onset Dates Condition Status Problem Pain in right knee M25.561 Active Problem Other chronic pain G89.29 Active Problem Neck pain M54.2 Active Problem Shortness of breath R06.02 Active Problem Acute pain of left shoulder M25.512 Active Problem Acute nonintractable headache, R51 Active unspecified headache type Problem Cardiomyopathy, unspecified type I42.9 Active Problem Varicose veins of both lower I83.93 Active extremities, unspecified whether complicated Problem Chronic congestive heart failure, I50.9 Active unspecified heart failure type Problem AICD (automatic Z95.810 Active cardioverter/defibrillator) present Problem Polyarthralgia M25.50 Active Problem Tremor of both hands R25.1 Active Problem Coronary artery disease involving I25.10 Active [place] coronary artery of [place] heart, angina presence unspecified Problem Multiple falls R29.6 Active Problem Constipation, unspecified K59.00 Active constipation type Problem Congestive heart failure I50.9 Active Problem Chest pain, unspecified type R07.9 Active Problem BMI 45.0-49.9, adult Z68.42 Active Problem Primary osteoarthritis of right M17.11 Active knee Problem Pain, joint, knee, right M25.561 Active Problem Cardiomyopathy I42.9 Active Problem CAD (coronary artery disease) I25.10 Active Assessment Varicose veins of both lower I83.93 Active extremities, unspecified whether complicated Assessment Uncontrolled type 2 diabetes E11.65 Active mellitus without complication, without long-term current use of insulin Assessment Morbid obesity E66.01 Active Assessment BMI 45.0-49.9, adult Z68.42 Active Assessment Shortness of breath R06.02 Active Assessment Mold exposure Z77.120 Active Assessment AICD (automatic Z95.810 Active cardioverter/defibrillator) present Assessment Peripheral edema R60.9 Active Assessment Asthma, unspecified asthma J45.909 Active severity, unspecified whether complicated, unspecified whether persistent Assessment Coronary artery disease involving I25.10 Active [place] coronary artery of [place] heart, angina presence unspecified Problem Peripheral vascular disease I73.9 Active Problem Depression F32.9 Active Problem Edema R60.9 Active Problem Morbid (severe) obesity due to E66.01 Active excess calories Assessment Hypertension, unspecified type I10 Active Problem Body mass index (BMI) of 40.0-44.9 Z68.41 Active in adult Problem Morbid obesity E66.01 Active Problem Left leg pain M79.605 Active Problem Left foot pain M79.672 Active Problem Mold exposure Z77.120 Active Problem Right leg pain M79.604 Active Problem Asthma, unspecified asthma J45.909 Active severity, unspecified whether complicated, unspecified whether persistent Problem Uncontrolled type 2 diabetes E11.65 Active mellitus without complication, without long-term current use of insulin Problem Bruising T14.8XXA Active Problem Hypertension, unspecified type I10 Active Problem Swelling of left lower extremity M79.89 Active Problem Diabetes type 2, controlled E11.9 Active Problem Status post fall Z91.81 Active Problem Heart disease I51.9 Active Problem Hematoma of left lower extremity, S80.12XD Active subsequent encounter Problem Hypertension I10 Active Problem Pain in left knee M25.562 Active Problem Peripheral edema R60.9 Active Problem Pain in right hand M79.641 Active Problem Varicose veins of bilateral lower I83.813 Active extremities with pain Problem Abnormal finding on mammography R92.8 Active Problem Pain of left hand M79.642 Active Medications Medication Code Code Instructions Start End Status Dosage System Date Date Blood Glucose ND 0 as directed Apr 20, Active as directed Test Strip Test BS once 2019 (DISPENSE daily BLOOD GLUCOSE TEST STRIPS FORMULARY TO INSURANCE) Zofran [facility] 48157791241 4 MG Orally 17 August Active as directed tablet orally 2018 every 6-8 hours Klor-Con 10 [facility] 23463102119 10 MEQ Orally Active 1 tablet Once a day Furosemide ND 03094011049 40 MG Orally Active 1 tablet in Once a day am Metformin HCl [facility] 53005364696 500 MG Orally Active 1 tablet Twice a day with meals Lancets [facility] 30285860567 - as directed Apr 20, Active as directed Test BS once 2019 (dispense daily lancets formulary to insurance) Macario Aspirin ND 83255286930 81 MG Orally Active 1 tablet EC Low Dose Once a day Entresto NDC 0 Orally Twice Active 1 tablet 49/51mg daily Glimepiride ND 40792505815 2 MG Orally Active 1 tablet Once a day Lisinopril ND 06342288680 40 MG Orally Active 1 tablet Once a day Blood Glucose ND 0 as directed Apr 20, Active as directed Monitor Test BS once 2019 (DISPENSE daily BLOOD GLUCOSE MONITOR FORMULARY TO INSURANCE) Coreg [facility] 40798087771 12.5 MG Orally Active 1 tablet Once daily Results No Known Results Summary Purpose eClinicalWorks Submission
--- OUTSIDE RECORDS SUMMARY | 2019-08-20 17:04 | XMS REPORT ---
:1960 Author Organization eClinicalWorks Care Team Providers Name Role Phone Aleah Nicholson Provider Role Unavailable Allergies No Known Allergies Problems Problem Type Condition Code Onset Dates Condition Status Problem Pain in right knee M25.561 Active Problem Other chronic pain G89.29 Active Problem Neck pain M54.2 Active Problem Shortness of breath R06.02 Active Problem Peripheral vascular disease I73.9 Active Problem Acute pain of left shoulder M25.512 Active Problem Depression F32.9 Active Problem Acute nonintractable headache, R51 Active unspecified headache type Problem Edema R60.9 Active Problem Cardiomyopathy, unspecified type I42.9 Active Problem Varicose veins of both lower I83.93 Active extremities, unspecified whether complicated Problem Chronic congestive heart failure, I50.9 Active unspecified heart failure type Problem AICD (automatic Z95.810 Active cardioverter/defibrillator) present Problem Morbid (severe) obesity due to E66.01 Active excess calories Problem Body mass index (BMI) of 40.0-44.9 Z68.41 Active in adult Problem Polyarthralgia M25.50 Active Problem Morbid obesity E66.01 Active Problem Left leg pain M79.605 Active Problem Left foot pain M79.672 Active Problem Mold exposure Z77.120 Active Problem Right leg pain M79.604 Active Problem Tremor of both hands R25.1 Active Problem Coronary artery disease involving I25.10 Active [place] coronary artery of [place] heart, angina presence unspecified Problem Uncontrolled type 2 diabetes E11.65 Active mellitus without complication, without long-term current use of insulin Problem Asthma, unspecified asthma J45.909 Active severity, unspecified whether complicated, unspecified whether persistent Problem Multiple falls R29.6 Active Problem Hypertension, unspecified type I10 Active Problem Bruising T14.8XXA Active Problem Diabetes type 2, controlled E11.9 Active Problem Swelling of left lower extremity M79.89 Active Problem Heart disease I51.9 Active Problem Status post fall Z91.81 Active Problem Hypertension I10 Active Problem Hematoma of left lower extremity, S80.12XD Active subsequent encounter Problem Pain in left knee M25.562 Active Problem Constipation, unspecified K59.00 Active constipation type Problem Peripheral edema R60.9 Active Problem Congestive heart failure I50.9 Active Problem Pain in right hand M79.641 Active Problem Chest pain, unspecified type R07.9 Active Problem Varicose veins of bilateral lower I83.813 Active extremities with pain Problem BMI 45.0-49.9, adult Z68.42 Active Problem Abnormal finding on mammography R92.8 Active Problem Primary osteoarthritis of right M17.11 Active knee Problem Pain of left hand M79.642 Active Problem Pain, joint, knee, right M25.561 Active Problem Cardiomyopathy I42.9 Active Problem CAD (coronary artery disease) I25.10 Active Medications No Known Medications Results No Known Results Summary Purpose eClinicalWorks Submission
--- NOTE | 2019-08-20 19:01 | EDPHYS ---
Physician Documentation [facility] Romeo Name: Sukh York Age: 59 yrs Sex: Female : 1960 Arrival Date: 08/20/2019 Time: 16:58 Bed 8 Private MD: ED Physician Cj León HPI: 08/19 17:27 This 59 yrs old Female presents to ER via Ambulatory with complaints of jmm HEADACHE, THROAT AND STOMACH ISSUES THAT ARE RELATED TO SINUS DRAINAGE. 17:27 The patient or guardian reports hoarse voice, sinus drainage. Onset: The jmm symptoms/episode began/occurred gradually, 2 day(s) ago. Modifying factors: The symptoms are alleviated by nothing. the symptoms are aggravated by nothing. Associated signs and symptoms: Pertinent positives: diarrhea. This is a 59 year old female with a history of CHF, DM, HTN that presents to the ED with complaints of sinus drainage, abdominal pain, diarrhea beginning 2 days ago. patient has had similar episode in the past. Denies cough, denies recent travel. Denies infectious exposure. . Historical: - Allergies: 17:25 PENICILLINS; iw - Home Meds: 17:25 Aspirin Oral [Active]; carvedilol Oral [Active]; Furosemide Oral [Active]; Glimepiride iw Oral [Active]; Klor-Con Oral [Active]; lisinopril Oral [Active]; Metformin Oral [Active]; - PMHx: 17:25 CHF; Diabetes - NIDDM; Hypertension; iw - PSHx: 17:25 pacemaker with defibrillator; iw - Immunization history:: Adult Immunizations up to date. - Social history:: Smoking status: Patient denies any tobacco usage or history of. ROS: 17:27 Constitutional: Negative for fever, chills, and weight loss. jmm 17:27 ENT: Positive for sinus congestion. 17:27 Respiratory: Negative for cough. 17:27 Abdomen/GI: Positive for abdominal pain, diarrhea, Negative for nausea and vomiting. 17:27 All other systems are negative. Exam: 17:27 Constitutional: This is a well developed, well nourished patient who is awake, alert, jmm and in no acute distress. Head/Face: atraumatic. Eyes: EOMI, no conjunctival erythema appreciated 17:27 Neck: Trachea midline, Supple Chest/axilla: Normal chest wall appearance and motion. 17:27 Back: Normal ROM Skin: General appearance color normal MS/ Extremity: Moves all extremities, no obvious deformities appreciated, no edema noted to the lower extremities Neuro: Awake and alert, normal gait Psych: Behavior is normal, Mood is normal, Patient is cooperative and pleasant 17:27 ENT: Posterior pharynx: erythema, that is mild. 17:27 Cardiovascular: Rate: normal, Rhythm: regular, Pulses: no pulse deficits are appreciated. 17:27 Respiratory: the patient does not display signs of respiratory distress, Respirations: normal, Breath sounds: are clear throughout. 17:27 Abdomen/GI: Inspection: abdomen appears normal, Bowel sounds: normal, Palpation: soft, nontender, in all quadrants. Vital Signs: 17:21 BP 101 / 83; Pulse 68; Resp 16; Temp 98.1; Pulse Ox 99% on R/A; Weight 116.12 kg; iw Height 5 ft. 1 in. (154.94 cm); Pain 0/10; 17:21 Body Mass Index 48.37 (116.12 kg, 154.94 cm) iw MDM: 17:25 Patient medically screened. [facility] 18:57 Data reviewed: vital signs, nurses notes. Counseling: I had a detailed discussion with scarlet the patient and/or guardian regarding: the historical points, exam findings, and any diagnostic results supporting the discharge/admit diagnosis, lab results, the need for outpatient follow up, to return to the emergency department if symptoms worsen or persist or if there are any questions or concerns that arise at home. ED course: Patient is alert and non toxic in appearance in the ED. No signs of resp distress. Abdomen is non tender to palpation. I do not suspect an acute process. Patient is otherwise given strict return precautions. Patient understood and agrees with the plan of care. . 08/19 17:25 Order name: Strep; Complete Time: 18:42 [facility] 08/19 18:42 Order name: Throat Culture EDMS Administered Medications: No medications were administered Disposition: 08/20 07:08 Co-signature as Attending Physician, Cj León MD. rn Disposition: 08/20/19 19:01 Discharged to Home. Impression: Acute upper respiratory infection, unspecified, Acute pharyngitis. - Condition is Stable. - Discharge Instructions: Pharyngitis, Upper Respiratory Infection, Adult. - Prescriptions for Zithromax Z- Omar 250 mg Oral Tablet - take 1 tablet by ORAL route as directed for 5 days Day 1 - take two (2) tablets one time. Day 2, 3, 4 , 5 take one (1) tablet once daily.; 6 tablet. - Medication Reconciliation Form, Thank You Letter, Antibiotic Education, Prescription Opioid Use form. - Follow up: Private Physician; When: 2 - 3 days; Reason: Recheck today's complaints, Continuance of care, Re-evaluation by your physician. Signatures: Dispatcher [employer] EDMS Rickie Galvez PA PA jmm Williams, Irene, RN Cj Liu MD MD rn Leal, Jahala, RN RN jl7 Corrections: (The following items were deleted from the chart) 08/19 19:12 19:01 08/20/2019 19:01 Discharged to Home. Impression: Acute upper respiratory jl7 infection, unspecified; Acute pharyngitis. Condition is Stable. Forms are Medication Reconciliation Form, Thank You Letter, Antibiotic Education, Prescription Opioid Use. Follow up: Private Physician; When: 2 - 3 days; Reason: Recheck today's complaints, Continuance of care, Re-evaluation by your physician. scarlet
--- NOTE | 2019-08-20 19:01 | ER ---
Nurse's Notes [facility] Name: Sukh York Age: 59 yrs Sex: Female : 1960 Arrival Date: 08/20/2019 Time: 16:58 Bed 8 Private MD: Diagnosis: Acute upper respiratory infection, unspecified;Acute pharyngitis Presentation: 08/19 17:21 Chief complaint: Patient states: has had sinus drainage since Friday, has been iw swallowing the mucous and it gave her diarrhea today, denies cough, denies fever, has SOB on exertion but has not taken her lasix pill today. Coronavirus screen: Patient denies fever greater than 100.4F, cough, shortness of breath, or difficulty breathing. Proceed with normal triage process. Ebola Screen: Patient negative for fever greater than or equal to 101.5 degrees Fahrenheit, and additional compatible Ebola Virus Disease symptoms Patient denies exposure to infectious person. Patient denies travel to an Ebola-affected area in the 21 days before illness onset. No symptoms or risks identified at this time. Initial Sepsis Screen: Does the patient meet any 2 criteria? No. Patient's initial sepsis screen is negative. Does the patient have a suspected source of infection? No. Patient's initial sepsis screen is negative. Risk Assessment: Do you want to hurt yourself or someone else? Patient reports no desire to harm self or others. 17:21 Method Of Arrival: Ambulatory iw 17:21 Acuity: RADHA 3 iw Historical: - Allergies: 17:25 PENICILLINS; iw - Home Meds: 17:25 Aspirin Oral [Active]; carvedilol Oral [Active]; Furosemide Oral [Active]; Glimepiride iw Oral [Active]; Klor-Con Oral [Active]; lisinopril Oral [Active]; Metformin Oral [Active]; - PMHx: 17:25 CHF; Diabetes - NIDDM; Hypertension; iw - PSHx: 17:25 pacemaker with defibrillator; iw - Immunization history:: Adult Immunizations up to date. - Social history:: Smoking status: Patient denies any tobacco usage or history of. Screenin:35 Abuse screen: Denies threats or abuse. Nutritional screening: No deficits noted. em Tuberculosis screening: No symptoms or risk factors identified. Fall Risk None identified. Assessment: 17:27 General: Appears in no apparent distress. comfortable, Behavior is calm, cooperative, em appropriate for age, Denies fever. Pain: Denies pain. Neuro: Level of Consciousness is awake, alert, obeys commands, Oriented to person, place, time, situation, Appropriate for age. Cardiovascular: Reports shortness of breath, Denies chest pain, Capillary refill < 3 seconds Patient's skin is warm and dry. Respiratory: Airway is patent Respiratory effort is even, unlabored, Respiratory pattern is regular, symmetrical, Breath sounds are clear bilaterally. Denies cough, shortness of breath. GI: Bowel sounds present X 4 quads. Abd is soft and non tender X 4 quads. Reports diarrhea, Patient currently denies nausea, vomiting. Derm: Skin is intact, is healthy with good turgor, Skin is pink, warm \T\ dry. Musculoskeletal: Capillary refill < 3 seconds, Range of motion: intact in all extremities. Vital Signs: 17:21 BP 101 / 83; Pulse 68; Resp 16; Temp 98.1; Pulse Ox 99% on R/A; Weight 116.12 kg; iw Height 5 ft. 1 in. (154.94 cm); Pain 0/10; 17:21 Body Mass Index 48.37 (116.12 kg, 154.94 cm) iw ED Course: 16:58 Patient arrived in ED. fj1 17:13 Domo Medrano, RN is Primary Nurse. em 17:17 Rickie Galvez PA is PHCP. [facility] 17:17 Cj León MD is Attending Physician. [facility] 17:24 Triage completed. iw 17:25 Arm band placed on. iw 17:35 Patient has correct armband on for positive identification. Bed in low position. Call em light in reach. Pulse ox on. NIBP on. 19:11 No provider procedures requiring assistance completed. Patient did not have IV access jl7 during this emergency room visit. Administered Medications: No medications were administered Outcome: 19:01 Discharge ordered by . opal 19:11 Discharged to home ambulatory. jl7 19:11 Condition: stable 19:11 Discharge instructions given to patient, Instructed on discharge instructions, follow up and referral plans. medication usage, Demonstrated understanding of instructions, follow-up care, medications, Prescriptions given X 1. 19:12 Patient left the ED. jl7 Signatures: Rickie Galvez PA PA jmm Munoz, Edgar, RN RN Kerry Lopez, RN RN iw Genaro Kelley RN RN jl7 Mook Loredo fj
[2019-08-20 19:17] VITALS: BP 101/83; TEMP 98.1; O2SAT 99
== END 2019-08-20 19:12 | disposition home or self-care (01) ==
LOC: ER 16:57
DX: J06.9 Acute upper respiratory infection, unspecified (principal); J02.9 Acute pharyngitis, unspecified; E11.9 Type 2 diabetes mellitus without complications; I12.9 Hypertensive chronic kidney disease with stage 1 through stage 4 chronic kidney disease, or unspecified chronic kidney disease; I50.9 Heart failure, unspecified; Z79.82 Long term (current) use of aspirin; Z79.84 Long term (current) use of oral hypoglycemic drugs; Z79.899 Other long term (current) drug therapy; Z95.810 Presence of automatic (implantable) cardiac defibrillator
CPT/HCPCS: 87070; 87081; 99283

== ENCOUNTER 2019-09-19 18:48 | Emergency (ER) | payer OTHER ==
--- OUTSIDE RECORDS SUMMARY | 2019-09-19 18:50 | XMS REPORT ---
:1960 Author Organization eClinicalWorks Care Team Providers Name Role Phone Shaneterrance Aleah Provider Role Unavailable Allergies, Adverse Reactions, Alerts Substance Reaction Event Type penicillin Info Not Available Drug Allergy Problems Problem Type Condition Code Onset Dates Condition Statu s Problem Pain in right hand M79.641 Active [...] Active Problem Pain, joint, knee, right M25.561 Act tamar Problem Bruising T14.8XXA Active Problem Left foot pain M79.672 Active Problem Tremor of both hands R25.1 Active Problem Coronary artery disease involving I25.10 Active [place] coronary artery of [place] heart, angina presence unspecified Problem Hypertension I10 [...] disease I51.9 Active Problem Constipation, unspecified K59.00 Ac tive constipation type Problem Diabetes type 2, controlled E11.9 Active Problem Congestive heart failure I50.9 Act tamar Problem Chronic congestive heart failure, I50.9 Active unspecified heart failure type Problem BMI 45.0-49.9, adult Z68.42 Active Medications Medication Code Code Instructions Start End Status Dosage System Date Date Zofran [facility] 17253018788 4 MG Orally 17 August Active as dir ected tablet orally 2018 every 6-8 hours Klor-Con 10 [facility] 28619477034 10 MEQ Orally May 23, Active 1 tablet Once a day 2019 Entresto ND 0 Orally Twice Active 1 tablet 49/51mg daily Macario Aspirin [facility] 57122217301 81 MG Orally Active 1 tablet EC Low Dose Once a day Furosemide [facility] [address]-06 40 MG Orally Active 1 tablet in Twice a day am Metformin HCl [facility] 61179239722 500 MG Orally Active 1 tablet Twice a day with meals Glimepiride [facility] 12801986748 2 MG Orally Active 1 ta blet Once a day Lisinopril [facility] 97536976700 40 MG Orally Active 1 ta blet Once a day Coreg [facility] 34799013764 12.5 MG Orally Active 1 tab let Once daily Results Name Result Date Reference Range Unit Abnormali ty Flag GLUCOSE FINGER ----Result 156--RBS [id number] STREP A+ RAPID HEMOGLOBIN A1C ----A1C 5.7% [id number] Summary Purpose eClinicalWorks Submission
--- OUTSIDE RECORDS SUMMARY | 2019-09-19 18:50 | XMS REPORT ---
[...] Problem Coronary artery disease involving I25.10 Active [place] coronary artery of [place] heart, angina presence unspecified Problem Hypertension I10 [...]
--- OUTSIDE RECORDS SUMMARY | 2019-09-19 18:50 | XMS REPORT ---
:1960 Author Organization [facility] Address [address] [place] [address] Care Team Providers Name Role Phone IVONNE Primary Care Provider Unavailable IVONNE Unavailable Unavailable Problems Condition Condition Condition Status Onset Resolution Last Treatin g Comments Name Details Category Date Date Treatment Clinician Date Uncontrolle Uncontrolle Problem Active d type 2 d type 2 diabetes diabetes mellitus mellitus without without complicatio complicatio n, without n, without long-term long-term current use current use of insulin of insulin Pain of Pain of Problem Active left hand left hand Abnormal Abnormal Problem Active finding on finding on mammography mammography Pain in Pain in Problem Active left knee left knee AICD AICD Problem Active (automatic (automatic cardioverte cardioverte r/defibrill r/defibrill ator) ator) present present Peripheral Peripheral Problem Active edema edema Pain in Pain in Problem Active right hand right hand BMI BMI Problem Active 45.0-49.9, 45.0-49.9, adult adult Morbid Morbid Problem Active obesity obesity Varicose Varicose Problem Active veins of veins of bilateral bilateral lower lower extremities extremities with pain with pain Depression Depression Problem Active Diabetes Diabetes Problem Active type 2, type 2, controlled controlled Peripheral Peripheral Problem Active vascular vascular disease disease Other Other Problem Active chronic chronic pain pain Pain, Pain, Problem Active joint, joint, knee, right knee, right Hypertensio Hypertensio Problem Active n n Shortness Shortness Problem Active of breath of breath Heart Heart Problem Active disease disease Acute pain Acute pain Problem Active of left of left shoulder shoulder Neck pain Neck pain Problem Active Acute Acute Problem Active nonintracta nonintracta ble ble headache, headache, unspecified unspecified headache headache type type Chest pain, Chest pain, Problem Active unspecified unspecified type type Congestive Congestive Problem Active heart heart failure failure Varicose Varicose Problem Active veins of veins of both lower both lower extremities extremities , , unspecified unspecified whether whether complicated complicated Polyarthral Polyarthral Problem Active rayna rayna Multiple Multiple Problem Active falls falls Tremor of Tremor of Problem Active both hands both hands Cardiomyopa Cardiomyopa Problem Active thy thy Coronary Coronary Problem Active artery artery disease disease involving involving [place] coronary coronary artery of artery of [place] heart, heart, angina angina presence presence unspecified unspecified CAD CAD Problem Active (coronary (coronary artery artery disease) disease) Primary Primary Problem Active osteoarthri osteoarthri tis of tis of right knee right knee Body mass Body mass Problem Active index (BMI) index (BMI) of of 40.0-44.9 40.0-44.9 in adult in adult Constipatio Constipatio Problem Active n, n, unspecified unspecified constipatio constipatio n type n type Swelling of Swelling of Problem Active left lower left lower extremity extremity Left foot Left foot Problem Active pain pain Left leg Left leg Problem Active pain pain Bruising Bruising Problem Active Hematoma of Hematoma of Problem Active left lower left lower extremity, extremity, subsequent subsequent encounter encounter Right leg Right leg Problem Active pain pain Status post Status post Problem Active fall fall Mold Mold Problem Active exposure exposure Asthma, Asthma, Problem Active unspecified unspecified asthma asthma severity, severity, unspecified unspecified whether whether complicated complicated , , unspecified unspecified whether whether persistent persistent Allergies, Adverse Reactions, Alerts Allergy Name Allergy Status Severity Reaction(s) Onset Inactive Treat ing Comments Type Date Date Clinician penicillin Adverse Active Info Not Reaction Available Medications Ordered Filled Start Stop Current Ordering Indication Dosage Frequency Signature Comments Components Medication Medication Date Date Medication? Clinician (SIG) Name Name Blood Blood 2018-05 Yes Aleah as Glucose Glucose 2-03 Millender directed Monitor Monitor 00:00: (DISPENSE 00 BLOOD GLUCOSE MONITOR FORMULARY TO INSURANCE) Lancets Lancets 2018-05 Yes Aleah as 2-03 Millender directed 00:00: (dispense 00 lancets formulary to insurance) Blood Blood 2018-05 Yes Aleah as Glucose Glucose 2-03 Millender directed Test Strip Test Strip 00:00: (DISPENSE 00 BLOOD GLUCOSE TEST STRIPS FORMULARY TO INSURANCE) Zofran Zofran Yes Aleah as 4-10 Millender directed 00:00: 00 Glimepiride Glimepiride Yes Aleah 1 tablet Millender Macario Macario Yes Aleah 1 tablet Aspirin EC Aspirin EC Millender Low Dose Low Dose Lisinopril Lisinopril Yes Aleah 1 tablet [place] Furosemide Furosemide Yes Aleah 1 tablet Millender in am Coreg Coreg Yes Aleah 1 tablet Millender Metformin Metformin Yes Aleah 1 tablet HCl HCl Millender with meals Entresto Entresto Yes Aleah 1 tablet 49/51mg 49/51mg Millender Klor-Con 10 Klor-Con 10 2020- No Aleah 1 tablet 01-05 Millender 00:00 :00 Encounters Start End Encounter Admission Attending Care Care Encounter Date/Time Date/Time Type Type Clinicians Facility Department ID 2019-08-19 2019-08-19 [facility] [id number] 11:54:00 11:54:00 [facility] 2019-07-25 2019-07-25 [facility] [id number] 13:11:00 13:11:00 [facility] 2019-07-20 2019-07-20 [facility] [id number] 11:00:00 11:00:00 [facility] 2019-04-24 2019-04-24 [facility] [id number] 03:26:00 03:26:00 [facility] 2019-04-20 2019-04-20 [facility] [id number] 09:40:00 09:40:00 [facility] 2019-03-22 2019-03-22 Outpatient mayelazzAmy tristinPetty [id number] 14:55:00 14:55:00 Yanick JALLOH 2019-01-19 2019-01-19 [facility] [id number] 14:40:00 14:40:00 [facility] 2018-11-04 2018-11-04 [facility] [id number] 12:03:00 12:03:00 [facility] 2018-08-26 2018-08-26 [facility] [id number] 11:20:00 11:20:00 [facility] 2018-08-14 2018-08-14 [facility] [id number] 14:30:00 14:30:00 [facility] 2018-08-03 2018-08-03 [facility] [id number] 12:32:00 12:32:00 [facility] 2018-06-01 2018-06-01 [facility] [id number] 10:15:00 10:15:00 [facility] 2018-03-02 2018-03-02 [facility] [id number] 09:00:00 09:00:00 [facility] 2018-01-30 2018-01-30 [facility] [id number] 11:30:00 11:30:00 [facility] 2018-01-20 2018-01-20 [facility] [id number] 09:46:00 09:46:00 [facility] 2018-01-13 2018-01-13 [facility] [id number] 10:00:00 10:00:00 [facility] [place] [facility] 2017-12-25 2017-12-25 [facility] [id number] 10:56:00 10:56:00 [facility] 2017-12-09 2017-12-09 [facility] [id number] 21:03:00 21:03:00 [facility] 2017-12-09 2017-12-09 [facility] [id number] 09:45:00 09:45:00 [facility] 2017-12-03 2017-12-03 [facility] [id number] 10:45:00 10:45:00 [facility] 2017-09-05 2017-09-05 [facility] [id number] 16:00:00 16:00:00 [facility] 2017-07-11 2017-07-11 Outpatient Yahaira [facility]ONADO [facility] [id number] 17:58:00 17:58:00 JACQUI Results Test Description Test Time Test Comments Text Results Atomic Results Result Comments Lipid Profile 2017-07-11 22:09:00 Test Item Value Reference Range Comments Cholesterol (test code = CHOL) 107 mg/dL 0-200 Triglycerides (test code = 76 mg/dL 9-200 TRIG) HDL (test code = HDL) 36 mg/dL 50-60 Chol/HDL (test code = CHOLPHDL) 3.0 Ratio 0.0-4.4 LDL, Calculated (test code = 56 0-130 (NO TE)RISK OF HEART DISEASEPublished LDLC) by [employer] t AssociationAnalyte Optimal Boderline Increased RiskCHOL <200 200-23 9 >240TRIG <150 150- 199 >200HDL Male: >60 <40HDL Female : >60 <50LDL <100 130-159 >160LD L NEAR OPTIMAL I S 100-129 VLDL (test code = VLDL) 15 mg/dL 5-40 LDL/HDL (test code = LDLPHDL) 2 Comprehensive Metabolic [id number] 22:09:00 Test Item Value Reference Range Comments Sodium (test code = NA) 143 mmol/L 135-145 Potassium (test code = 4.0 mmol/L 3.5-5.1 K) Chloride (test code = 108 mmol/L 98-105 CL) Carbon Dioxide (test 25 mmol/L 22-29 code = CO2) Glucose (test code = 113 mg/dL 70-115 GLU) Blood Urea Nitrogen 20 mg/dL 6-20 (test code = BUN) Creatinine (test code = 0.5 mg/dL 0.5-0.9 CREAT) Calcium (test code = CA) 9.0 mg/dL 8.3-10.5 Prot Total (test code = 7.0 g/dL 6.4-8.3 TP) Albumin (test code = 3.8 g/dL 3.5-5.2 ALB) A/G Ratio (test code = 1.2 Ratio AGRATIO) Globulin (test code = 3.2 2.9-3.1 GLOB) Bili Total (test code = 0.5 mg/dL 0.1-0.9 TBIL) Alk Phos (test code = 65 U/L 35-104 APHOS) AST (test code = AST) 16 U/L 1-32 ALT (test code = ALT) 21 U/L 1-33 BUN/Creatinine Ratio 40.0 (test code = BCRATIO) Anion Gap (test code = 10 mmol/L 7-16 AGAP) Estimated GFR (test code >60 mL/min/1.73m2 eGFR (estimated Glomerular = GFR) Filtration Rate) is an estimated value, calculated from the patient 's serum creatinine using the MDRD equation.It is N OT the patient's actual GFR. The eGFR provides a more clinicallyuseful measure of kidney disease t obrien serum creatinine alone .This calculation take s sex and race into accoun t, if the informationis pr ovided. If the race is not provided, and the patient isAfrican-Americ an, multiply by 1.21 2. If sex is not provided, and thepatient is fe male, multiply by 0.74 2. Results for patients <18 years ofage have not b een validated by the MDRD study and should be interpretedwith caution.eGFR Res ult Interpretation:e GFR > or = 60 is in the Nor mal RangeeGFR < 60 m ay mean kidney diseaseeG FR < 15 may mean kidney failureRanges recommended by luann graham National Kid[employer] Foundation,http: //nkdep.nih .gov [id number] 22:05:00 Test Item Value Reference Range Comments NT ProBnp (test code = PBNP) 1920 pg/mL 0-124 CBC with [id number] 18:24:00 Test Item Value Reference Range Comments WBC (test code = WBC) 5.2 K/cumm 4.4-10.5 RBC (test code = RBC) 4.36 M/cumm 3.75-5.20 Hemoglobin (test code = HGB) 12.5 gm/dL 12.2-14.8 Hematocrit (test code = HCT) 38.2 % 36.5-44.4 MCV (test code = MCV) 87.7 fL 80-100 MCH (test code = MCH) 28.7 pg 27.0-32.5 MCHC (test code = MCHC) 32.7 g/dL 32.0-37.5 RDW (test code = RDW) 14.5 % 11.5-14.5 Platelet Count (test code = PLTCT) 158 K/cumm 140-440 MPV (test code = MPV) 10.7 fL Diff Method (test code = DIFFM) Auto Neutrophil (test code = NEUT) 64.9 % 36-70 Lymphocyte (test code = LYMPH) 26.3 % 12-44 Monocyte (test code = MONO) 6.4 % 0-11 Eosinophil (test code = EOS) 1.7 % 0-7 Basophil (test code = BASO) 0.8 % 0-2 Neutro Abs (test code = ANEUT) 3.4 K/cumm 1.6-7.4 Lymph Abs (test code = ALYMPH) 1.4 K/cumm 0.5-4.6 [place] Abs (test code = AMONO) 0.3 K/cumm 0.0-1.2 Eos Abs (test code = AEOS) 0.09 K/cumm 0.00-0.74 Baso Abs (test code = ABASO) 0.0 K/cumm 0.00-0.21
--- OUTSIDE RECORDS SUMMARY | 2019-09-19 18:51 | XMS REPORT ---
:1960 [facility] Care Team Providers Name Role Phone Aleah Nicholson Provider Role Unavailable Allergies No Known Allergies Problems Problem Type Condition Code Onset Dates Condition Statu s Problem Peripheral edema R60.9 Active Problem Pain [...] knee Problem Pain, joint, knee, right M25.561 Act tamar Problem Chronic congestive heart failure, [...] Problem Coronary artery disease involving I25.10 Active [place] coronary artery of [place] heart, angina presence unspecified Problem Pain of left hand M79.642 Active Problem Tremor of both hands R25.1 Active Problem Hypertension, unspecified type I10 Active Problem Cardiomyopathy I42.9 Active Problem Uncontrolled type 2 diabetes E11.65 Active mellitus without complication, without long-term current use of insulin Problem CAD (coronary artery disease) I25.10 Active Problem Constipation, unspecified K59.00 Ac tive constipation type Problem Congestive heart failure I50.9 Act tamar Medications No Known Medications Results No Known Results Summary Purpose eClinicalWorks Submission
--- OUTSIDE RECORDS SUMMARY | 2019-09-19 18:51 | XMS REPORT ---
[...] Problem Coronary artery disease involving I25.10 Active [place] coronary artery of [place] heart, angina presence unspecified Problem Tremor of both hands R25.1 Active Problem Cardiomyopathy I42.9 Active Problem CAD (coronary artery disease) I25.10 Active Problem Constipation, unspecified K59.00 Ac tive constipation type Problem Congestive heart failure I50.9 Act tamar Assessment BMI 45.0-49.9, adult Z68.42 Active Assessment Uncontrolled type 2 diabetes E11.65 Active mellitus without complication, without long-term current use of insulin Assessment Coronary artery disease involving I25.10 Active [place] coronary artery of [place] heart, angina presence unspecified Assessment Peripheral edema [...] joint, knee, right M25.561 Act tamar Problem Morbid (severe) obesity due to E66.01 [...] Status Dosage System Date Date Metformin HCl ND 37723710270 500 MG Orally Active 1 tablet Twice a day with meals Zofran ND 76339549918 4 MG Orally 17 August Active as dir ected tablet orally 2018 every 6-8 hours Entresto NDC 0 Orally Twice Active 1 tablet 49/51mg daily Lisinopril ND 39558150725 40 MG Orally Active 1 ta blet Once a day Blood Glucose NDC 0 as directed Apr 20, Active as di rected Monitor Test BS once 2018 (DISPENSE daily BLOOD GLUCOSE MONITOR FORMULARY TO INSURANCE) Glimepiride ND 61150068267 2 MG Orally Active 1 ta blet Once a day Lancets [facility] 42133750165 - as directed Apr 20, Active as dir ected Test BS once 2018 (dispense daily lancets formulary to insurance) Macario Aspirin ND 02579688408 81 MG Orally Active 1 tablet EC Low Dose Once a day Klor-Con [address] [facility] 84059879568 10 MEQ Orally Active 1 tablet Once a day Furosemide [facility] 03321077929 40 MG Orally Active 1 ta blet in Once a day am Coreg [facility] 43799492342 12.5 MG Orally Active 1 tab let Once daily Blood Glucose [facility] 0 as directed Apr 20, Active as di rected Test Strip Test BS once 2018 (DISPENS E daily BLOOD GLUCOSE TEST STRIPS FORMULARY TO INSURANCE) Results Name Result Date Reference Range Unit Abnormali ty Flag GLUCOSE FINGER ----Result 129--RBS [id number] Summary Purpose eClinicalWorks Submission
--- OUTSIDE RECORDS SUMMARY | 2019-09-19 18:52 | XMS REPORT ---
:1960 Author Organization eClinicalWorks Care Team Providers Name Role Phone Aleah Nicholson Provider Role Unavailable Allergies No Known Allergies Problems Problem Type Condition Code Onset Dates Condition Statu s Problem Pain in right knee M25.561 Active [...] Problem Coronary artery disease involving I25.10 Active [place] coronary artery of [place] heart, angina presence unspecified Problem Uncontrolled type 2 diabetes E11.65 Active mellitus without complication, without long-term current use of insulin Problem Asthma, unspecified asthma J45.909 A ctive severity, unspecified whether complicated, unspecified whether persistent [...] knee M25.562 Active Problem Constipation, unspecified K59.00 Ac tive constipation type Problem Peripheral edema R60.9 Active Problem Congestive heart failure I50.9 Act tamar Problem Pain in right hand M79.641 Active Problem Chest pain, unspecified type R07.9 Active Problem Varicose veins of bilateral lower I83.813 Active extremities with pain Problem BMI 45.0-49.9, adult Z68.42 Active Problem Abnormal finding on mammography R92.8 Active Problem Primary osteoarthritis of right M17.11 Active knee Problem Pain of left hand M79.642 Active Problem Pain, joint, knee, right M25.561 Act tamar Problem Cardiomyopathy I42.9 Active Problem CAD (coronary artery disease) I25.10 Active Medications No Known Medications Results No Known Results Summary Purpose eClinicalWorks Submission
--- OUTSIDE RECORDS SUMMARY | 2019-09-19 18:52 | XMS REPORT ---
:1960 Author Organization e[employer]Works Care Team Providers Name Role Phone Lyn Aleah Provider Role Unavailable Allergies, Adverse Reactions, [...] artery disease involving I25.10 Active [place] coronary artery of [place] heart, angina presence unspecified Problem Multiple falls R29.6 Active Problem Constipation, unspecified K59.00 Ac tive constipation type Problem Congestive heart failure I50.9 Act [place] Problem Chest pain, unspecified type R07.9 Active [...] R60.9 Active Assessment Asthma, unspecified asthma J45.909 A ctive severity, unspecified whether complicated, unspecified whether persistent Assessment Coronary artery disease involving I25.10 Active [place] coronary artery of [place] heart, angina presence unspecified Problem Peripheral vascular [...] M79.604 Active Problem Asthma, unspecified asthma J45.909 A ctive [...] Status Dosage System Date Date Blood Glucose [facility] 0 as directed Apr 20, Active as di rected Test Strip Test BS once 2018 (DISPENS E daily BLOOD GLUCOSE TEST STRIPS FORMULARY TO INSURANCE) Zeean [facility] 29922409484 4 MG Orally 17 August Active as dir ected tablet orally 2018 every 6-8 hours Klor-Con 10 [facility] [id number] 10 MEQ Orally Active 1 tablet Once a day Furosemide [facility] 88729144945 40 MG Orally Active 1 ta blet in Once a day am Metformin HCl [facility] 19951772683 500 MG Orally Active 1 tablet Twice a day with meals Lancets [facility] [id number] - as directed Apr 20, Active as dir ected Test BS once 2019 (dispense daily lancets formulary to insurance) Macario Aspirin [facility] 26488553221 81 MG Orally Active 1 tablet EC Low Dose Once a day Entresto ND 0 Orally Twice Active 1 tablet 49/51mg daily Glimepiride [facility] 30088929855 2 MG Orally Active 1 ta blet Once a day Lisinopril [facility] 37152525564 40 MG Orally Active 1 ta blet Once a day Blood Glucose ND 0 as directed Apr 20, Active as di rected Monitor Test BS once 2019 (DISPENSE daily BLOOD GLUCOSE MONITOR FORMULARY TO INSURANCE) Coreg [facility] 20559803500 12.5 MG Orally Active 1 tab let Once daily Results No Known Results Summary Purpose eClinicalWorks Submission
--- OUTSIDE RECORDS SUMMARY | 2019-09-19 18:52 | XMS REPORT ---
[...] Problem Coronary artery disease involving I25.10 Active [place] coronary artery of [place] heart, angina presence unspecified Problem Uncontrolled type [...]
[2019-09-19 19:39] LABS: Absolute Lymphocytes (CBC) 1.9 K/uL (0.7-4.9); Basophils % 1.1 % (0-1.3); Hematocrit 40.7 % (36.0-45.0); Lymphocytes % 31.6 % (15.3-44.8); MPV 11.3 fL (7.6-11.3); RBC Red Blood Cell Count 4.81 M/uL (3.86-4.86)
[2019-09-19 19:44] LABS: Protime INR 1.16
[2019-09-19 19:52] LABS: ALT/SGPT 36 U/L (12-78); AST/SGOT 19 U/L (15-37); Albumin 3.6 g/dL (3.4-5.0); Alkaline Phosphatase 71 U/L (45-117); BUN Blood Urea Nitrogen 16 mg/dL (7-18); Bicarbonate 26 mmol/L (21-32); Bilirubin Direct 0.2 mg/dL (0-0.2); Bilirubin Total 0.6 mg/dL (0.2-1.0); CKMB Creatine Kinase MB 1.1 ng/mL (0.3-3.6); Creatine Phosphokinase 51 U/L (26-192); Glucose Level 101 mg/dL (74-106); Lipase 83 U/L (73-393); Magnesium 1.8 mg/dL (1.8-2.4); NT PRO-BNP 1631 pg/mL (<125); Potassium 3.2 mmol/L (3.5-5.1); Protein, Total 7.6 g/dL (6.4-8.2); Sodium Level 142 mmol/L (136-145); Troponin (Emerg Dept Use Only) < 0.02 ng/mL (0.0-0.045)
--- NOTE | 2019-09-19 20:36 | RAD REPORT ---
EXAM DESCRIPTION: RAD - Chest Single View - 09/19/2019 8:27 pm CLINICAL HISTORY: CHEST PAIN Chest pain. COMPARISON: Chest Single View dated 08/13/2018; Chest Single View dated 07/23/2018; Chest Single View d ated 04/20/2018; Chest Pa And Lat (2 Views) dated 12/12/2017 FINDINGS: Portable technique limits examination quality. The lungs are grossly clear. The heart is mildly enlarged in size with a dual lead pacer/ defibrillat or device present. No displaced fractures. IMPRESSION: No acute intrathoracic process suspected.
[2019-09-19] MEDS ORDERED: POTASSIUM 25 MEQ EFFERV TAB ONE (20:49)
--- NOTE | 2019-09-19 20:53 | EDPHYS ---
Physician Documentation [facility] Name: Sukh York Age: 59 yrs Sex: Female : 1960 Arrival Date: 09/19/2019 Time: 18:50 Bed 2 Private MD: Aleah Nicholson ED Physician Ashvin Guerrier HPI: 09/18 19:59 This 59 yrs old Female presents to ER via Ambulatory with complaints of tw4 Shortness Of Breath, Numbness Of Arm. 19:59 The patient has shortness of breath at rest. Onset: The symptoms/episode began/occurred tw4 today. Duration: The symptoms are continuous, and are unchanged since they started. The patient's shortness of breath has no apparent modifying factors. Associated signs and symptoms: The patient has no apparent associated signs or symptoms. Severity of symptoms: At their worst the symptoms were mild in the emergency department the symptoms are unchanged. The patient has not experienced similar symptoms in the past. Historical: - Allergies: 19:02 PENICILLINS; ca1 - Home Meds: 19:02 Aspirin Oral [Active]; carvedilol Oral [Active]; Furosemide Oral [Active]; Glimepiride ca1 Oral [Active]; Klor-Con Oral [Active]; lisinopril Oral [Active]; Metformin Oral [Active]; - PMHx: 19:02 CHF; Diabetes - NIDDM; Hypertension; ca1 - PSHx: 19:02 Defibrillator; ca1 - Immunization history:: Adult Immunizations up to date, Flu vaccine is not up to date. - Social history:: Smoking status: Patient denies any tobacco usage or history of. ROS: 19:59 Constitutional: Negative for fever, chills, and weight loss. tw4 19:59 ENT: Negative for injury, pain, and discharge, Neck: Negative for injury, pain, and swelling, Cardiovascular: Negative for chest pain, palpitations, and edema, Abdomen/GI: Negative for abdominal pain, nausea, vomiting, diarrhea, and constipation, Back: Negative for injury and pain, MS/Extremity: Negative for injury and deformity, Skin: Negative for injury, rash, and discoloration. 19:59 Constitutional: Positive for body aches. 19:59 Respiratory: Positive for shortness of breath. 19:59 Neuro: Positive for numbness. Exam: 19:59 Constitutional: This is a well developed, well nourished patient who is awake, alert, tw4 and in no acute distress. Head/Face: Normocephalic, atraumatic. Chest/axilla: Normal chest wall appearance and motion. Nontender with no deformity. No lesions are appreciated. Cardiovascular: Regular rate and rhythm with a normal S1 and S2. No gallops, murmurs, or rubs. Normal PMI, no JVD. No pulse deficits. Respiratory: Lungs have equal breath sounds bilaterally, clear to auscultation and percussion. No rales, rhonchi or wheezes noted. No increased work of breathing, no retractions or nasal flaring. Abdomen/GI: Soft, non-tender, with normal bowel sounds. No distension or tympany. No guarding or rebound. No evidence of tenderness throughout. Skin: Warm, dry with normal turgor. Normal color with no rashes, no lesions, and no evidence of cellulitis. MS/ Extremity: Pulses equal, no cyanosis. Neurovascular intact. Full, normal range of motion. Neuro: Awake and alert, GCS 15, oriented to person, place, time, and situation. Cranial nerves II-XII grossly intact. Motor strength 5/5 in all extremities. Sensory grossly intact. Cerebellar exam normal. Normal gait. 19:59 ECG was reviewed by the Attending Physician. Vital Signs: 18:55 BP 107 / 56; Pulse 48; Resp 16 S; Temp 97(TE); Pulse Ox 100% on R/A; Weight 116.12 kg ca1 (R); Height 5 ft. 1 in. (154.94 cm) (R); Pain 10/10; 19:31 BP 110 / 59; Pulse 82; Resp 18; Pulse Ox 100% on R/A; mg2 20:58 BP 102 / 53; Pulse 82; Resp 18; Temp 98; Pulse Ox 100% on R/A; mg2 18:55 Body Mass Index 48.37 (116.12 kg, 154.94 cm) ca1 MDM: 19:14 Patient medically screened. tw4 20:51 Differential diagnosis: asthma, pneumonia, Pneumothorax reactive airway disease, tw4 Unstable Angina. Antibiotic administration: Not indicated. Data reviewed: vital signs, nurses notes, lab test result(s), cardiac enzymes, CBC, electrolytes, hepatic panel, EKG, radiologic studies, plain films. Data interpreted: Pulse oximetry: Interpretation: normal. Counseling: I had a detailed discussion with the patient and/or guardian regarding: the historical points, exam findings, and any diagnostic results supporting the discharge/admit diagnosis, lab results, radiology results. Special discussion: I discussed with the patient/guardian in detail that at this point there is no indication for admission to the hospital. It is understood, however, that if the symptoms persist or worsen the patient needs to return immediately for re-evaluation. 20:53 Differential diagnosis: Bronchitis CHF exacerbation, pulmonary edema. 09/18 19:14 Order name: Blood Culture Adult (2) 09/18 19:14 Order name: BMP; Complete Time: 20:03 09/18 20:04 Interpretation: Normal except: K 3.2; GFR 72; CL 109. 09/18 19:14 Order name: CBC with Diff; Complete Time: 20:03 09/18 20:03 Interpretation: Within normal limits. 09/18 19:14 Order name: Ckmb; Complete Time: 20:03 09/18 20:03 Interpretation: Within normal limits: CKMB 1.1. 09/18 19:14 Order name: CPK; Complete Time: 20:03 09/18 20:04 Interpretation: Within normal limits: CPK 51. 09/18 19:14 Order name: Hepatic Function; Complete Time: 20:03 09/18 20:03 Interpretation: Normal except: GLOB 4.0; A/G 0.9. 09/18 19:14 Order name: Lipase; Complete Time: 20:03 09/18 20:04 Interpretation: Within normal limits: LIP 83. 09/18 19:14 Order name: Magnesium; Complete Time: 20:03 09/18 20:04 Interpretation: Within normal limits: MG 1.8. 09/18 19:14 Order name: NT PRO-BNP; Complete Time: 20:03 09/18 20:03 Interpretation: Normal except: NT PRO-BNP 1631. 09/18 19:14 Order name: PT-INR; Complete Time: 20:03 09/18 20:03 Interpretation: Normal except: PT 13.6. 09/18 19:14 Order name: Ptt, Activated; Complete Time: 20:03 tw4 09/18 20:04 Interpretation: Within normal limits: PTT 35.3. 09/18 19:14 Order name: Troponin (emerg Dept Use Only); Complete Time: 20:03 tw4 09/18 20:04 Interpretation: Within normal limits: TROPED < 0.02. 09/18 19:31 Order name: Glucose, Ancillary Testing; Complete Time: 20:03 EDMS 09/18 20:04 Interpretation: Within normal limits: GLUC,ANCIL 100. 09/18 19:59 Order name: CXR XRAY; Complete Time: 20:39 tw4 09/18 20:39 Interpretation: No acute disease. 09/18 19:14 Order name: EKG; Complete Time: 19:16 tw4 09/18 19:14 Order name: Cardiac monitoring; Complete Time: 19:30 09/18 19:14 Order name: EKG - Nurse/Tech; Complete Time: 19:30 09/18 19:14 Order name: IV Saline Lock; Complete Time: 19:30 09/18 19:14 Order name: Labs collected and sent; Complete Time: 19:30 09/18 19:14 Order name: O2 Per Protocol; Complete Time: 19:30 09/18 19:14 Order name: O2 Sat Monitoring; Complete Time: 19:30 tw4 EC:59 Rate is 89 beats/min. Rhythm is regular with Unifocal PVCs, Occasional PVCs, tw4 Ventricular paced. QRS [place] is Normal. NC interval is normal. QRS interval is normal. QT interval is normal. No Q waves. T waves are Normal. No ST changes noted. Clinical impression: NSR w/ Non-specific ST/T Changes. Interpreted by me. Reviewed by me. Administered Medications: 20:55 Not Given (Physician Discretion): Potassium Chloride 40 mEq PO once mg2 20:55 Drug: Potassium Effervescent Tablet 50 mEq Route: PO; mg2 20:56 Follow up: Response: No adverse reaction; Medication administered at discharge. mg2 Disposition: 09/19/19 20:53 Discharged to Home. Impression: Acute upper respiratory infection, unspecified, Hypokalemia. - Condition is Stable. - Discharge Instructions: Upper Respiratory Infection, Adult, Viral Respiratory Infection. - Medication Reconciliation Form, Thank You Letter, Antibiotic Education, Prescription Opioid Use form. - Follow up: Aleah Nicholson MD; When: 1 - 2 days; Reason: Recheck today's complaints, Continuance of care, Re-evaluation by your physician. - Problem is an ongoing problem. - Symptoms have improved. Signatures: Dispatcher [employer] Ashvin Fernandez MD MD tw4 James Brenner RN RN mg2 Chaparrita Pineda RN RN ca1 Corrections: (The following items were deleted from the chart) 20:04 20:03 Normal except: K 3.2; GFR 72. tw4 tw4 21:32 20:53 09/19/2019 20:53 Discharged to Home. Impression: Acute upper respiratory mg2 infection, unspecified; Hypokalemia. Condition is Stable. Forms are Medication Reconciliation Form, Thank You Letter, Antibiotic Education, Prescription Opioid Use. Follow up: Aleah Nicholson; When: 1 - 2 days; Reason: Recheck today's complaints, Continuance of care, Re-evaluation by your physician. Problem is an ongoing problem. Symptoms have improved. tw4
--- NOTE | 2019-09-19 20:53 | ER ---
Nurse's Notes [facility] Name: Sukh York Age: 59 yrs Sex: Female : 1960 Arrival Date: 09/19/2019 Time: 18:50 Bed 2 Private MD: Aleah Nicholson Diagnosis: Acute upper respiratory infection, unspecified;Hypokalemia Presentation: 09/18 18:55 Chief complaint: Patient states: Tingling on L arm started Friday. Headache off/on x 2 ca1 wks. SOB with exertion but NOT more than usual. Reports dizzy spells since Friday. Coronavirus screen: Proceed with normal triage. Patient denies a cough. Patient denies shortness of breath or difficulty breathing. Patient denies measured and/or subjective temperature greater than 100.4F prior to today's visit. Patient denies travel on a cruise ship or to a country the [facility] currently lists as an affected area. Patient denies contact with known and/or suspected case of COVID-19. Ebola Screen: Patient negative for fever greater than or equal to 101.5 degrees Fahrenheit, and additional compatible Ebola Virus Disease symptoms Patient denies exposure to infectious person. Patient denies travel to an Ebola-affected area in the 21 days before illness onset. No symptoms or risks identified at this time. Initial Sepsis Screen: Does the patient meet any 2 criteria? No. Patient's initial sepsis screen is negative. Does the patient have a suspected source of infection? No. Patient's initial sepsis screen is negative. Risk Assessment: Do you want to hurt yourself or someone else? Patient reports no desire to harm self or others. 18:55 Method Of Arrival: Ambulatory ca1 18:55 Acuity: RADHA 3 ca1 18:55 Onset of symptoms was September 19, 2019. ca1 Historical: - Allergies: 19:02 PENICILLINS; ca1 - Home Meds: 19:02 Aspirin Oral [Active]; carvedilol Oral [Active]; Furosemide Oral [Active]; Glimepiride ca1 Oral [Active]; Klor-Con Oral [Active]; lisinopril Oral [Active]; Metformin Oral [Active]; - PMHx: 19:02 CHF; Diabetes - NIDDM; Hypertension; ca1 - PSHx: 19:02 Defibrillator; ca1 - Immunization history:: Adult Immunizations up to date, Flu vaccine is not up to date. - Social history:: Smoking status: Patient denies any tobacco usage or history of. Screenin:31 Abuse screen: Denies threats or abuse. Denies injuries from another. Nutritional mg2 screening: No deficits noted. Tuberculosis screening: No symptoms or risk factors identified. Fall Risk IV access (20 points). Assessment: 19:31 General: Appears in no apparent distress. comfortable, Behavior is calm, cooperative. mg2 Pain: Denies pain. Neuro: Level of Consciousness is awake, alert, obeys commands, Oriented to person, place, time, situation. Cardiovascular: Capillary refill < 3 seconds Rhythm is. Respiratory: Airway is patent Respiratory effort is even, unlabored, Respiratory:. GI: No signs and/or symptoms were reported involving the gastrointestinal system. : No signs and/or symptoms were reported regarding the genitourinary system. EENT: No signs and/or symptoms were reported regarding the EENT system. Derm: Skin is intact, is healthy with good turgor, Skin is pink, warm \T\ dry. normal. Musculoskeletal: Circulation, motion, and sensation intact. Capillary refill < 3 seconds. 20:30 Reassessment: Patient appears in no apparent distress at this time. Patient and/or mg2 family updated on plan of care and expected duration. Pain level reassessed. Patient is alert, oriented x 3, equal unlabored respirations, skin warm/dry/pink. 21:00 Reassessment: Patient appears in no apparent distress at this time. Patient and/or mg2 family updated on plan of care and expected duration. Pain level reassessed. Patient is alert, oriented x 3, equal unlabored respirations, skin warm/dry/pink. Vital Signs: 18:55 BP 107 / 56; Pulse 48; Resp 16 S; Temp 97(TE); Pulse Ox 100% on R/A; Weight 116.12 kg ca1 (R); Height 5 ft. 1 in. (154.94 cm) (R); Pain 10/10; 19:31 BP 110 / 59; Pulse 82; Resp 18; Pulse Ox 100% on R/A; mg2 20:58 BP 102 / 53; Pulse 82; Resp 18; Temp 98; Pulse Ox 100% on R/A; mg2 18:55 Body Mass Index 48.37 (116.12 kg, 154.94 cm) ca1 ED Course: 18:50 Patient arrived in ED. as 18:50 Aleah Nicholson MD is Private Physician. as 19:00 Triage completed. ca1 19:02 Arm band placed on right wrist. ca1 19:10 James Brenner, DAY is Primary Nurse. mg2 19:13 Ashvin Guerrier MD is Attending Physician. tw4 19:20 First set of blood cultures drawn. Inserted saline lock: 20 gauge in left antecubital mg2 area, using aseptic technique. Blood collected. 19:30 No provider procedures requiring assistance completed. mg2 19:32 Patient has correct armband on for positive identification. gambling monitor on. Door mg2 closed. Warm blanket given. 20:28 CXR XRAY In Process Unspecified. EDMS 20:52 Aleah Nicholson MD is Referral Physician. tw4 21:32 IV discontinued, intact, bleeding controlled, No redness/swelling at site. Pressure mg2 dressing applied. Administered Medications: 20:55 Not Given (Physician Discretion): Potassium Chloride 40 mEq PO once mg2 20:55 Drug: Potassium Effervescent Tablet 50 mEq Route: PO; mg2 20:56 Follow up: Response: No adverse reaction; Medication administered at discharge. mg2 Outcome: 20:53 Discharge ordered by . tw4 21:31 Discharged to home ambulatory. mg2 21:31 Condition: good 21:31 Discharge instructions given to patient, Instructed on discharge instructions, follow up and referral plans. Demonstrated understanding of instructions, follow-up care. 21:32 Patient left the ED. mg2 Signatures: Dispatcher [employer] EDMS Anu Lutz as Ashvin Guerrier MD MD tw4 James Brenner, DAY BERNSTEIN mg2 Chaparrita Pineda RN RN ca1 Corrections: (The following items were deleted from the chart) 22:13 19:31 Pulse 82bpm; Resp 18bpm; Pulse Ox 100% RA; mg2 mg2
[2019-09-19 23:21] VITALS: O2SAT 100
[2019-09-19 23:23] VITALS: BP 102/53; TEMP 98
--- NOTE | 2019-09-20 10:50 | EKG ---
Test Date: 2019-09-19 Test Time: 19:12:53 Liner Reroll Tender: MADY MEASUREMENT RESULTS: Intervals: Rate: 89 MI: 152 QRSD: 168 QT: 428 QTc: 520 [place]: P: 65 MI: 152 QRS: 108 T: -63 INTERPRETIVE STATEMENTS: Demand pacemaker, interpretation is based on intrinsic rhythm Marked sinus bradycardia with marked sinus arrhythmia with premature ventricular complexes or fusion complexes Rightward axis Left bundle branch block Abnormal ECG Compared to ECG 08/13/2018 17:50:35 Fusion complex(es) now present Right-axis deviation now present Left bundle-branch block now present Atrial-paced complex(es) or rhythm no longer present Intraventricular conduction delay no longer present Electronically Signed On 09-20-19 10:49:06 CDT by Jose Alberto Mac
== END 2019-09-19 21:32 | disposition home or self-care (01) ==
LOC: ER 18:48
DX: J06.9 Acute upper respiratory infection, unspecified (principal); E87.6 Hypokalemia; I10 Essential (primary) hypertension; E11.9 Type 2 diabetes mellitus without complications; I50.9 Heart failure, unspecified; Z88.0 Allergy status to penicillin; Z79.82 Long term (current) use of aspirin; Z95.810 Presence of automatic (implantable) cardiac defibrillator
CPT/HCPCS: 36415; 71045; 80048; 80076; 82550; 82553; 82947; 83690; 83735; 83880; 84484; 85025; 85610; 85730; 87040; 93005; 99284

== ENCOUNTER 2020-01-07 04:29 | Observation (INO) | payer OTHER ==
--- OUTSIDE RECORDS SUMMARY | 2020-01-07 04:31 | XMS REPORT | Clinical Summary ---
:1960 Author Organization [facility] Address [address] [place] [address] Care Team Providers Name Role Phone Unavailable Primary Care Provider Unavailable Allergies Not on File Medications Not on file Active Problems Not on file Social History Tobacco Use Types Packs/Day Years Used Date Never Assessed Sex Assigned at Date Recorded Not on file Job Start Date Occupation Industry Not on file Not on file Not on file Travel History Travel Start Travel End No recent travel history available. Last Filed Vital Signs Not on file Plan of Treatment Health Maintenance Due Date Last Done Comments COLON CANCER SCREENING COLONOSCOPY 1960 LIPID PANEL 1997 MEDICARE ANNUAL WELLNESS (YEAR 2 or FIRST YEAR if no 05/20/2018 IPPE) INFLUENZA VACCINE (#1) 2020 Results Not on fileafter 01/06/2019 Insurance Payer Benefit Plan / Group Subscriber ID Type Phone A ddress [facility] UNITED MEDICARE HMO xxxxxxxxx MEDICARE [place] CARE MEDICAID MEDICAID OF [place] xxxxxxxxx Medicaid
--- OUTSIDE RECORDS SUMMARY | 2020-01-07 04:32 | XMS REPORT ---
:1960 Author Organization [employer] Care Team Providers Name Role Phone Lyn Aleah Provider Role Unavailable Allergies, Adverse Reactions, Alerts Substance Reaction Event Type penicillin Info Not Available Drug Allergy Problems Problem Type Condition Code Onset Dates Condition Statu s Problem Neck pain M54.2 Active Problem Shortness of breath R06.02 Active Problem Acute nonintractable headache, R51 Active unspecified headache type Problem Acute pain of left shoulder M25.512 Active Problem Cardiomyopathy, unspecified type I42.9 Active Problem Varicose veins of both lower I83.93 Active extremities, unspecified whether complicated Problem Chronic congestive heart failure, I50.9 Active unspecified heart failure type Problem AICD (automatic Z95.810 Active cardioverter/defibrillator) present Problem Polyarthralgia M25.50 Active Problem Multiple falls R29.6 Active Problem Coronary artery disease involving I25.10 Active [place] coronary artery of [place] heart, angina presence unspecified Assessment Frequent falls R29.6 Active Assessment Morbid obesity E66.01 Active Assessment Dizziness R42 Active Assessment BMI 45.0-49.9, adult Z68.42 Active Problem BMI 45.0-49.9, adult Z68.42 Active Problem Chest pain, unspecified type R07.9 Active Problem Tremor of both hands R25.1 Active Problem Cardiomyopathy I42.9 Active Problem CAD (coronary artery disease) I25.10 Active Problem Constipation, unspecified K59.00 Ac tive constipation type Problem Congestive heart failure I50.9 Act tamar Problem Morbid obesity E66.01 Active Problem Morbid (severe) obesity due to E66.01 Active excess calories Problem Primary osteoarthritis of right M17.11 Active knee Problem Pain, joint, knee, right M25.561 Act tamar Assessment AICD (automatic Z95.810 Active cardioverter/defibrillator) present Assessment Peripheral edema R60.9 Active Assessment Varicose veins of both lower I83.93 Active extremities, unspecified whether complicated Assessment Uncontrolled type 2 diabetes E11.65 Active mellitus without complication, without long-term current use of insulin Assessment Hypertension, unspecified type I10 Active Assessment Asthma, unspecified asthma J45.909 A ctive severity, unspecified whether complicated, unspecified whether persistent Assessment Coronary artery disease involving I25.10 Active [place] coronary artery of [place] heart, angina presence unspecified Assessment Shortness of breath R06.02 Active Assessment Mold exposure Z77.120 Active Problem Depression F32.9 Active Problem Edema R60.9 Active Problem Hypertension I10 Active Problem Diabetes type 2, controlled E11.9 Active Problem Body mass index (BMI) of 40.0-44.9 Z68.41 Active in adult Problem Peripheral vascular disease I73.9 Active Problem Swelling of left lower extremity M79.89 Active Problem Left leg pain M79.605 Active Problem Bruising T14.8XXA Active Problem Left foot pain M79.672 Active Problem Frequent falls R29.6 Active Problem Asthma, unspecified asthma J45.909 A ctive severity, unspecified whether complicated, unspecified whether persistent Problem Dizziness R42 Active Problem Pain of left hand M79.642 Active Problem Right leg pain M79.604 Active Problem Hypertension, unspecified type I10 Active Problem Hematoma of left lower extremity, S80.12XD Active subsequent encounter Problem Abnormal finding on mammography R92.8 Active Problem Mold exposure Z77.120 Active Problem Uncontrolled type 2 diabetes E11.65 Active mellitus without complication, without long-term current use of insulin Problem Status post fall Z91.81 Active Problem Heart disease I51.9 Active Problem Other chronic pain G89.29 Active Problem Pain in right knee M25.561 Active Problem Peripheral edema R60.9 Active Problem Pain in left knee M25.562 Active Problem Pain in right hand M79.641 Active Problem Varicose veins of bilateral lower I83.813 Active extremities with pain Medications Medication Code Code Instructions Start End Status Dosage System Date Date Glimepiride [facility] 07079849461 2 MG Orally Active 1 ta blet Once a day Entresto [facility] 94471568825 49/51mg Orally Active 1 ta blet 49/51mg Twice daily Klor-Con 10 [facility] 50520038411 10 MEQ Orally Active 1 tablet Once a day Furosemide ND 01069692432 40 MG Orally Active 1 ta blet in Once a day am Macario Aspirin [facility] 26292803729 81 MG Orally Active 1 tablet EC Low Dose Once a day Coreg [facility] 44806989939 12.5 MG Orally Active 1 tab let Once daily Lisinopril ND 64761079474 40 MG Orally Active 1 ta blet Once a day Blood Glucose NDC 0 as directed Apr 20, Active as di rected Monitor Test BS once 2019 (DISPENSE daily BLOOD GLUCOSE MONITOR FORMULARY TO INSURANCE) Metformin HCl [facility] 16360751036 500 MG Orally Active 1 tablet Twice a day with meals Blood Glucose NDC 0 as directed Apr 20, Active as di rected Test Strip Test BS once 2019 (DISPENS E daily BLOOD GLUCOSE TEST STRIPS FORMULARY TO INSURANCE) Lancets [facility] 05801895793 - as directed Apr 20, Active as dir ected Test BS once 2019 (dispense daily lancets formulary to insurance) Zofran [facility] 08880328909 4 MG Orally 17 August Active as dir ected tablet orally 2018 every 6-8 hours Results No Known Results Summary Purpose [employer]ClinicalWorks Submission
--- OUTSIDE RECORDS SUMMARY | 2020-01-07 04:32 | XMS REPORT ---
[...] Problem Coronary artery disease involving I25.10 Active [place] coronary artery of [place] heart, angina presence unspecified Assessment Frequent falls [...] Assessment Coronary artery disease involving I25.10 Active [place] coronary artery of [place] heart, angina presence unspecified Assessment Shortness of [...] Start End Status Dosage System Date Date KlorCon 10 [facility] [id number] 10 MEQ Orally Active 1 tablet Once a day Blood Glucose NDC 0 as directed Apr 20, Active as di rected Monitor Test BS once 2018 (DISPENSE daily BLOOD GLUCOSE MONITOR FORMULARY TO INSURANCE) Metformin HCl ND 55358758549 500 MG Orally Active 1 tablet Twice a day with meals Lisinopril NDC 93188753465 40 MG Orally Active 1 ta blet Once a day Blood Glucose NDC 0 as directed Apr 20, Active as di rected Test Strip Test BS once 2019 (DISPENS E daily BLOOD GLUCOSE TEST STRIPS FORMULARY TO INSURANCE) Lancets [facility] 99658208170 - as directed Apr 20, Active as dir ected Test BS once 2018 (dispense daily lancets formulary to insurance) Glimepiride [facility] 16738673543 2 MG Orally Active 1 ta blet Once a day Entresto [facility] 92601753548 49/51mg Orally Active 1 ta blet 49/51mg Twice daily Coreg [facility] 90471784485 12.5 MG Orally Active 1 tab let Once daily Furosemide [facility] 23357797072 40 MG Orally Active 1 ta blet in Once a day am Macario Aspirin [facility] 08623727632 81 MG Orally Active 1 tablet EC Low Dose Once a day Results No Known Results Summary Purpose eClinicalWorks Submission
--- OUTSIDE RECORDS SUMMARY | 2020-01-07 04:32 | XMS REPORT ---
[...] Problem Coronary artery disease involving I25.10 Active [place] coronary artery of [place] heart, angina presence unspecified Problem BMI 45.0-49.9, adult Z68.42 Active Problem [...] joint, knee, right M25.561 Act tamar Problem Depression F32.9 Active Problem Edema R60.9 [...] lower I83.813 Active extremities with pain Medications No Known Medications Results No Known Results Summary Purpose [employer]Works Submission
--- OUTSIDE RECORDS SUMMARY | 2020-01-07 04:32 | XMS REPORT | Continuity of Care Document ---
:1960 Author Organization [facility] t Address [address] [place] [address] Care Team Providers Name Role Phone IVONNE Primary Care Physician Unavailable Eron CAM L Attending Clinician IVONNE Attending Clinician Unavailable IVONNE Admitting Clinician Unavailable Problems Condition Condition Condition Status Onset Resolution Last Treating Co mments Source Name Details Category Date Date Treatment Clinician Date Uncontroll Uncontroll Problem Active [facility] ed type 2 ed type 2 [facility] - diabetes diabetes Memori a mellitus mellitus l without without Outpati complicati complicati en t on, on, Clinics without without long-term long-term current current use of use of insulin insulin Pain of Pain of Problem Active [facility] left hand left hand [facility] - [facility] Outpat[facility] ent Clinics Abnormal Abnormal Problem Active [facility] on finding on Rupali kes - mammograph mammograph Me moria y y l Outpati ent Clinics Pain in Pain in Problem Active [facility] left knee left knee [facility] - [facility] l Outpat[facility] ent Clinics AICD AICD Problem Active [facility] (automatic (automatic Rupali kes - cardiovert cardiovert Me moria er/defibri er/defibri l llator) llator) Outpati present present ent Clinics Peripheral Peripheral Problem Active [facility] edema edema [facility] Pain in Pain in Problem Active [facility] right hand right hand Rupali kes - Memoria l Outpati ent Clinics BMI BMI Problem Active [facility] 45.0-49.9, 45.0-49.9, Rupali kes - adult adult Memoria l [facility] Clinics Morbid Morbid Problem Active [facility] (severe) (severe) [facility] - obesity obesity Memoria due to due to l excess excess [facility] calories calories ent Clinics Varicose Varicose Problem Active [facility] veins of veins of [facility] - bilateral bilateral Andres jorge l lower lower l extremitie extremitie Ou tpati s with s with ent pain pain Clinics Depression Depression Problem Active [facility] - [facility] Clin[facility] Diabetes Diabetes Problem Active [facility] type 2, type 2, [facility] - controlled controlled Me moria l [facility] ent Clinics Peripheral Peripheral Problem Active [facility] vascular vascular [facility] - disease disease Memoria l [facility] ent Clinics Other Other Problem Active [facility] chronic chronic [facility] - pain pain Memoria l [facility] ent Clinics Pain in Pain in Problem Active [facility] right knee right knee Rupali kes - Memoria l [facility] ent Clinics Hypertensi Hypertensi Problem Active [facility] on, on, [facility] - unspecifie unspecifie Me moria d type d type l [facility] ent Clinics Shortness Shortness Problem Active [facility] of breath of breath [facility] - Memoria l [facility] ent Clinics Heart Heart Problem Active [facility] disease disease [facility]ics Acute pain Acute pain Problem Active [facility] of left of left [facility] - shoulder shoulder Memori a l [facility] ent Clinics Neck pain Neck pain Problem Active [facility] Clin[facility] Acute Acute Problem Active [facility] nonintract nonintract Rupali kes - able able Memoria headache, headache, l unspecifie unspecifie Ou tpati d headache d headache en t type type Clinics Chest Chest Problem Active [facility] pain, pain, [facility] - unspecifie unspecifie Me moria d type d type l [facility] ent Clinics Congestive Congestive Problem Active [facility] heart heart [facility] - failure failure Memoria l [facility] ent Clinics Varicose Varicose Problem Active [facility] veins of veins of [facility] - both lower both lower Me moria extremitie extremitie l s, s, Outpati unspecifie unspecifie en t d whether d whether Clin ics complicate complicate d d Polyarthra Polyarthra Problem Active [facility] lgia lgia [facility] - [facility] ent Clinics Frequent Frequent Problem Active [facility] [place] [facility] - [facility] ent Clinics Tremor of Tremor of Problem Active [facility] both hands both hands Rupali kes - Memoria l [facility] ent Clinics Cardiomyop Cardiomyop Problem Active [facility] athy athy [facility] - [facility] l [facility] Clinics Coronary Coronary Problem Active [facility] artery artery [facility] - disease disease Memoria involving involving l ione ione [facility] coronary coronary ent artery of artery of Clin ics ione ione heart, heart, angina angina presence presence unspecifie unspecifie d d CAD CAD Problem Active [facility] (coronary (coronary [facility] - artery artery Memoria disease) disease) l [facility] ent Clinics Primary Primary Problem Active [facility] osteoarthr osteoarthr Rupali kes - itis of itis of [facility] right knee right knee l [facility] Clinics Body mass Body mass Problem Active [facility] index index [facility] - (BMI) of (BMI) of [facility] 40.0-44.9 40.0-44.9 l in adult in adult Outpat i ent Clinics Constipati Constipati Problem Active [facility] on, on, [facility] - unspecifie unspecifie Me moria d d l constipati constipati Ou tpati on type on type ent Clinics Swelling Swelling Problem Active [facility] of left of left [facility] - lower lower Memoria extremity extremity l [facility] ent Clinics Left foot Left foot Problem Active [facility] pain pain [facility] - [facility] Left leg Left leg Problem Active [facility] pain pain [facility] Bruising Bruising Problem Active [facility] Hematoma Hematoma Problem Active [facility] of left of left [facility] - lower lower Memoria extremity, extremity, l subsequent subsequent Ou tpati encounter encounter ent Clinics Right leg Right leg Problem Active [facility] pain pain [facility] - [facility] ent Clin[facility] Status Status Problem Active [facility] post fall post fall [facility] - [facility] Clinics Mold Mold Problem Active [facility] exposure exposure [facility] Asthma, Asthma, Problem Active [facility] unspecifie unspecifie Rupali kes - d asthma d asthma Memori a severity, severity, l unspecifie unspecifie Ou tpati d whether d whether ent complicate complicate Cl inics d, d, unspecifie unspecifie d whether d whether persistent persistent Dizziness Dizziness Problem Active [facility] Clin[facility] Allergies, Adverse Reactions, Alerts Allergy Allergy Status Severity Reaction(s) Onset Inactive Treating Comm ents Source Name Type Date Date Clinician penicill Adverse Active Info Not [facility] in Reaction Available [facility] Clin[facility] Social History Social Habit Start Date Stop Date Quantity Comments Source Sex Assigned At [facility] Medications Ordered Filled Start Stop Current Ordering Indication Dosage Frequency Signature Comments Components Source Medication Medication Date Date Medication? Clinician (SIG) Name Name Blood Blood 2018-05 Yes Kilo as [facility] Glucose Glucose 2-03 Hernandez directed Luke s - Monitor Monitor 00:00: (DISPENSE Me moria 00 BLOOD l GLUCOSE Outpati MONITOR ent FORMULARY Clinics TO INSURANCE) Lancets Lancets 2018-05 Yes Kilo as [facility] 2-03 Hernandez directed [facility] - 00:00: (dispense Memoria 00 lancets l formulary Outpati to ent insurance) Clinics Blood Blood 2018-05 Yes Kilo as [facility] Glucose Glucose 2-03 Hernandez directed Luke s - Test Strip Test Strip 00:00: (DISPENSE Memoria 00 BLOOD l GLUCOSE Outpati TEST ent STRIPS Clinics FORMULARY TO INSURANCE) Glimepiride Glimepiride Yes Kilo [address] [facility] Hernandez [facility] - [facility]ics Macario Macario Yes Kilo [address] Aspirin EC Aspirin EC Hernandez Rupali kes - Low Dose Low Dose Memoria [facility] Clinics Lisinopril Lisinopril Yes Kilo [address] [facility] Hernandez [facility] - [facility] Clinics Furosemide Furosemide Yes Kilo [address] [facility] [address] Hernandez in am [facility] - [facility]oria [facility] ent Clinics Coreg Coreg Yes Kilo [address] [facility] Hernandez [facility] - [facility] Clinics Metformin Metformin Yes Kilo [address] [facility] HCl HCl Hernandez with meals [facility] - [facility]oria [facility] Clinics Entresto Entresto Yes Kilo [address] 49/51mg 49/51mg Hernandez [facility] Klor-Con 10 Klor-Con 10 2019- No Kilo [address] 01-05 Hernandez [facility] - 00:00 Memoria :00 l [facility] ent Clinics Procedures This patient has no known procedures. Plan of Care Planned Activity Planned Date Details Comments Source Future Scheduled 2020-01-[address] [facility] - Test 00:00:00 (#1) [code = Medical Center INFLUENZA VACCINE (#1)] Future Scheduled 2018-05-[address] [facility] - Test 00:00:00 WELLNESS (YEAR 2 or Medical Center FIRST YEAR if no IPPE) [code = MEDICARE ANNUAL WELLNESS (YEAR 2 or FIRST YEAR if no IPPE)] Future Scheduled [address] [facility] - Test 00:00:00 (procedure) [code = Medical Center [id number]] Future Scheduled [address] [facility] - Test 00:00:00 malignant neoplasm Medical C enter of colon (procedure) [code = 378288545] Encounters Start End Encounter Admission Attending Care Care Encounter Source Date/Time Date/Time Type Type Clinicians Facility Department ID 2019-12-27 2019-12-27 [place] [place] [id number] 11:15:00 11:15:00 [employer] [facility] l Medicine Outpati ent Clinics 2019-12-27 2019-12-27 [facility] [id number] 09[facility]19:00 09:19:00 [facility] Medicine l Medicine Outpati ent Clinics 2019-10-26 2019-10-26 [facility] [id number] [address] 08:15:00 08:15:[address] [facility] [employer] [facility] Medicine l Medicine Outpati ent Clinics 2019-10-20 2019-10-20 [facility] [id number] [address] 23:40:00 23:40:[address] [facility] [employer] [facility] Medicine l Medicine Outpati ent Clinics 2019-10-20 2019-10-20 [facility] [id number] [address] 14:40:00 14:40:[address] [facility] [employer] [facility] Medicine l Medicine Outpati ent Clinics 2019-08-19 2019-08-19 [facility] [id number] 11:54:00 11:54:00 [facility] [employer] [facility] Medicine l Medicine Outpati ent Clinics 2019-07-25 2019-07-25 [facility] [id number] 13:11:00 13:11:00 [facility] Medicine Outpati ent Clinics 2019-07-20 2019-07-20 [facility] [id number] 11:00:00 11:00:00 [facility] Medicine Outpati ent Clinics 2019-04-24 2019-04-24 [facility] [id number] [address] 03:26:00 03:26:00 [facility] Medicine Outpati ent Clinics 2019-04-20 2019-04-20 [facility] [id number] [address] 09:40:00 09:40:00 [facility] Outpati ent Clinics 2019-03-22 2019-03-22 Outpatient Judy Kim [id number] [facility] 14:55:00 14:55:00 Yanick Herndon [facility] Outpati ent Clinics 2019-02-12 2019-02-12 Office [facility] [id number] 10:42:57 11:02:57 Visit Tom Fishman AMBULATOR [id number] 2019-01-19 2019-01-19 [place] [place] [id number] 14:40:00 14:40:00 [facility] Outpati ent Clinics 2018-11-04 2018-11-04 [facility] [id number] [address] 12:03:00 12:03:00 [facility] Medicine Outpati ent Clinics 2018-08-26 2018-08-26 [facility] [id number] 11:20:00 11:20:00 [facility] Medicine Outpati ent Clinics 2018-08-14 2018-08-14 [facility] [id number] 14:30:00 14:30:00 [facility] Medicine Outpati ent Clinics 2018-08-03 2018-08-03 [facility] [id number] 12:32:00 12:32:00 t [facility] Medicine Outpati ent Clinics 2018-06-01 2018-06-01 [facility] [id number] 10:15:00 10:15:00 t [facility] Medicine Outpati ent Clinics 2018-03-02 2018-03-02 [facility] [id number] 09:00:00 09:00:00 t [facility] Medicine Outpati ent Clinics 2018-01-30 2018-01-30 [facility] [id number] [address] 11:30:00 11:30:00 t [facility] Medicine Outpati ent Clinics 2018-01-20 2018-01-20 [facility] [id number] 09:46:00 09:46:00 t [facility] Medicine Outpati ent Clinics 2018-01-13 2018-01-13 [facility] [id number] 10:00:00 10:00:00 [facility] ent Clinics 2017-12-25 2017-12-25 [facility] [id number] 10:56:00 10:56:00 t [facility] Medicine Outpati ent Clinics 2017-12-09 2017-12-09 [facility] [id number] 21:03:00 21:03:00 t [facility] Medicine Outpati ent Clinics 2017-12-09 2017-12-09 [facility] [id number] 09:45:00 09:45:00 t [facility] Medicine Outpati ent Clinics 2017-12-03 2017-12-03 [facility] [id number] 10:45:00 10:45:00 t [facility] l Medicine Outpati ent Clinics 2017-09-05 2017-09-05 Outpatient Tiffanie Walters [id number] 16:00:00 16:00:00 [facility] l Outpati ent Clinics 2017-07-11 2017-07-11 Outpatient Yahaira CORONADO, [facility] [id number] 17:58:00 17:58:00 [facility] Results Test Description Test Time Test Comments Results Result Comments Source Lipid Profile 2017-07-11 22:09:00 Test Item Value Reference Range Interpretation Comme nts Cholesterol (test code = CHOL) 107 mg/dL 0-200 N Triglycerides (test code = 76 mg/dL 9-200 N TRIG) HDL (test code = HDL) 36 mg/dL 50-60 L Chol/HDL (test code = 3.0 Ratio 0.0-4.4 N CHOLPHDL) LDL, Calculated (test code = 56 0-130 N (NOTE)RISK OF HEART LDLC) DISEASEPublishe d by [place] Heart AssociationAnal yte Optimal Boderline Increased R iskCHOL <200 200-239 >240TRIG <150 150-199 >200HDL Male: >60 <40HDL Female: & gt;60 <50LDL <100 130- 159 >160LDL NEAR OPTIMAL IS 100- 129 VLDL (test code = VLDL) 15 mg/dL 5-40 N LDL/HDL (test code = LDLPHDL) 2 Comprehensive Metabolic [id number] 22:09:00 Test Item Value Reference Range Interpretation Comments Sodium (test code = 143 mmol/L 135-145 N NA) Potassium (test 4.0 mmol/L 3.5-5.1 N code = K) Chloride (test code 108 mmol/L 98-105 H = CL) Carbon Dioxide 25 mmol/L 22-29 N (test code = CO2) Glucose (test code 113 mg/dL 70-115 N = GLU) Blood Urea Nitrogen 20 mg/dL 6-20 N (test code = BUN) Creatinine (test 0.5 mg/dL 0.5-0.9 N code = CREAT) Calcium (test code 9.0 mg/dL 8.3-10.5 N = CA) Prot Total (test 7.0 g/dL 6.4-8.3 N code = TP) Albumin (test code 3.8 g/dL 3.5-5.2 N = ALB) A/G Ratio (test 1.2 Ratio code = AGRATIO) Globulin (test code 3.2 2.9-3.1 H = GLOB) Bili Total (test 0.5 mg/dL 0.1-0.9 N code = TBIL) Alk Phos (test code 65 U/L 35-104 N = APHOS) AST (test code = 16 U/L 1-32 N AST) ALT (test code = 21 U/L 1-33 N ALT) BUN/Creatinine 40.0 Ratio (test code = BCRATIO) Anion Gap (test 10 mmol/L 7-16 N code = AGAP) Estimated GFR (test >60 eGFR (es timated code = GFR) mL/min/1.73m2 Glomerular Sonny tration Rate) is an est imated value,calculate d from the patient's s keira creatinine usin g the MDRD equation.I t is NOT the patient 's actual GFR. The eGFR provides a more clinicallyusefu l measure of kidn ey disease than se rum creatinine alone.This calculation tunde es sex and race into account, if the informationis provided. If th e race is not provided , and the patient isAfrican-Ameri can, multiply by 1.2 12. If sex is not prov ided, and thepatient is female, multipl y by 0.742. Results for patients <18 ye ars ofage have not been validated by th e MDRD study and shoul d be interpretedwith caution.eGFR Re sult Interpretation: eGFR > or = 60 is in t he Normal RangeeGF R < 60 may mean kidney diseaseeGFR < 1 5 may mean kidney failureRange s recommended by the National Kidney Foundation,http ://nkd ep.nih.gov [id number] 22:05:00 Test Item Value Reference Range Interpretation Comments NT ProBnp (test code = PBNP) 1920 pg/mL 0-124 H CBC with [id number] 18:24:00 Test Item Value Reference Range Interpretation Comments WBC (test code = WBC) 5.2 K/cumm 4.4-10.5 N RBC (test code = RBC) 4.36 M/cumm 3.75-5.20 N Hemoglobin (test code = HGB) 12.5 gm/dL 12.2-14.8 N Hematocrit (test code = HCT) 38.2 % 36.5-44.4 N MCV (test code = MCV) 87.7 fL 80-100 N MCH (test code = MCH) 28.7 pg 27.0-32.5 N MCHC (test code = MCHC) 32.7 g/dL 32.0-37.5 N RDW (test code = RDW) 14.5 % 11.5-14.5 N Platelet Count (test code = 158 K/cumm 140-440 N PLTCT) MPV (test code = MPV) 10.7 fL Diff Method (test code = DIFFM) Auto Neutrophil (test code = NEUT) 64.9 % 36-70 N Lymphocyte (test code = LYMPH) 26.3 % 12-44 N Monocyte (test code = MONO) 6.4 % 0-11 N Eosinophil (test code = EOS) 1.7 % 0-7 N Basophil (test code = BASO) 0.8 % 0-2 N Neutro Abs (test code = ANEUT) 3.4 K/cumm 1.6-7.4 N Lymph Abs (test code = ALYMPH) 1.4 K/cumm 0.5-4.6 N [place] Abs (test code = AMONO) 0.3 K/cumm 0.0-1.2 N Eos Abs (test code = AEOS) 0.09 K/cumm 0.00-0.74 N Baso Abs (test code = ABASO) 0.0 K/cumm 0.00-0.21 N
--- OUTSIDE RECORDS SUMMARY | 2020-01-07 04:32 | XMS REPORT ---
:1960 Author Organization [employer] Care Team Providers Name Role Phone Kilo Hernandez Provider Role Unavailable Allergies, Adverse Reactions, Alerts [...] Problem Coronary artery disease involving I25.10 Active [place] coronary artery of [place] heart, angina presence unspecified Problem BMI 45.0-49.9, [...] joint, knee, right M25.561 Act tamar Assessment Suspected COVID-19 virus infection Z20.828 Active Assessment Sore throat J02.9 Active Problem Depression F32.9 Active Problem Edema [...] Start End Status Dosage System Date Date Klor-Con 10 [facility] [id number] 10 MEQ Orally Active 1 tablet Once a day Lancets [facility] 41597441829 - as directed Apr 20, Active as dir ected Test BS once 2019 (dispense daily lancets formulary to insurance) Coreg ND 73351840183 12.5 MG Orally Active 1 tab let Once daily Glimepiride ND 04592572471 2 MG Orally Active 1 ta blet Once a day Macario Aspirin ND 06394195702 81 MG Orally Active 1 tablet EC Low Dose Once a day Blood Glucose NDC 0 as directed Apr 20, Active as di rected Monitor Test BS once 2019 (DISPENSE daily BLOOD GLUCOSE MONITOR FORMULARY TO INSURANCE) Metformin HCl ND 82416204785 500 MG Orally Active 1 tablet Twice a day with meals Lisinopril ND 14116679831 40 MG Orally Active 1 ta blet Once a day Entresto ND 85627323331 49/51mg Orally Active 1 ta blet 49/51mg Twice daily Furosemide ND 23138761034 40 MG Orally Active 1 ta blet in Once a day am Blood Glucose NDC 0 as directed Apr 20, Active as di rected Test Strip Test BS once 2019 (DISPENS E daily BLOOD GLUCOSE TEST STRIPS FORMULARY TO INSURANCE) Results No Known Results Summary Purpose [employer] Submission
--- OUTSIDE RECORDS SUMMARY | 2020-01-07 04:33 | XMS REPORT ---
[...] Problem Coronary artery disease involving I25.10 Active [place] coronary artery of [place] heart, angina presence unspecified Problem BMI 45.0-49.9, [...]
[2020-01-07 05:10] LABS: Urine Blood 1+ (NEG); Urine Glucose NEGATIVE (NEG); Urine Protein NEGATIVE (NEG); Urine Specific Gravity 1.025 (1.005-1.030); Urine pH 6.5 (5.0-7.0)
[2020-01-07 05:24] LABS: Protime INR 1.15
[2020-01-07 05:34] LABS: Absolute Lymphocytes (CBC) 1.4 K/uL (0.7-4.9); Basophils % 1.1 % (0-1.3); Hematocrit 36.1 % (36.0-45.0); Lymphocytes % 21.8 % (15.3-44.8); MPV 10.7 fL (7.6-11.3); RBC Red Blood Cell Count 4.32 M/uL (3.86-4.86)
[2020-01-07 05:40] LABS: ALT/SGPT 27 U/L (12-78); AST/SGOT 10 U/L (15-37); Albumin 3.6 g/dL (3.4-5.0); Alkaline Phosphatase 62 U/L (45-117); BUN Blood Urea Nitrogen 20 mg/dL (7-18); Bicarbonate 26 mmol/L (21-32); Bilirubin Direct 0.2 mg/dL (0-0.2); Bilirubin Total 0.6 mg/dL (0.2-1.0); Glucose Level 122 mg/dL (74-106); NT PRO-BNP 2957 pg/mL (<125); Potassium 3.7 mmol/L (3.5-5.1); Protein, Total 7.5 g/dL (6.4-8.2); Sodium Level 143 mmol/L (136-145); Troponin (Emerg Dept Use Only) < 0.02 ng/mL (0.0-0.045)
--- NOTE | 2020-01-07 05:54 | ER ---
Nurse's Notes [facility] [place] Name: Sukh York Age: 59 yrs Sex: Female : 1960 Arrival Date: 01/07/2020 Time: 04:31 Bed 16 Private MD: Diagnosis: CHF Exacerbation;Chest Pain Presentation: 01/06 04:48 Chief complaint: Patient states: she has been having breathing difficulty x 3 days bb states "my water pills are not working" is having chest pain from the breathing difficulty. Coronavirus screen: shortness of breath, The client reports previous COVID testing was negative. tested for strep and COVID a week ago. Ebola Screen: No symptoms or risks identified at this time. Initial Sepsis Screen: Does the patient meet any 2 criteria? No. Patient's initial sepsis screen is negative. Does the patient have a suspected source of infection? No. Patient's initial sepsis screen is negative. Risk Assessment: Do you want to hurt yourself or someone else? Patient reports no desire to harm self or others. Onset of symptoms was January 04, 2020. 04:48 Method Of Arrival: Ambulatory 04:48 Acuity: RADHA 2 bb Historical: - Allergies: 04:57 PENICILLINS; bb - Home Meds: 04:57 aspirin 81 mg oral chew once daily [Active]; carvedilol 12.5 mg oral tab 1 tab daily bb [Active]; furosemide 40 mg oral tab 1 tab once daily [Active]; glimepiride 2 mg oral tab 1 tab once daily [Active]; metformin 500 mg oral tab 1 tab twice a day [Active]; Klor-Con 20 mEq daily Oral [Active]; Breo Ellipta inhalation inhalation [Active]; Entresto 49-51 mg oral tab 1 tab 2 times per day [Active]; - PMHx: 04:57 CHF; Diabetes - NIDDM; Hypertension; COPD; bb - PSHx: 04:57 defibrillator; bb - Immunization history:: Adult Immunizations up to date. - Social history:: Smoking status: Patient/guardian denies using tobacco, but has a distant history of tobacco abuse. Screenin:30 Abuse screen: Denies threats or abuse. Denies injuries from another. Nutritional wh screening: No deficits noted. Tuberculosis screening: No symptoms or risk factors identified. Fall Risk None identified. Assessment: 05:29 General: Appears in no apparent distress. Behavior is calm, cooperative, appropriate wh for age. Pain: Complains of pain in chest Pain does not radiate. Neuro: Level of Consciousness is awake, alert, obeys commands, Oriented to person, place, time, situation, Appropriate for age. Cardiovascular: Heart tones S1 S2 Edema is 1+ to left foot and right foot Rhythm is regular. Respiratory: Reports shortness of breath cough that is pain with cough Airway is patent Respiratory effort is even, unlabored, Respiratory pattern is regular, symmetrical, Breath sounds with rhonchi bilaterally. GI: Abdomen is flat, non-distended. : No signs and/or symptoms were reported regarding the genitourinary system. EENT: No signs and/or symptoms were reported regarding the EENT system. Derm: Skin is intact, is healthy with good turgor, Skin is pink, warm \\T\\ dry. normal. Musculoskeletal: Circulation, motion, and sensation intact. 06:37 Reassessment: Patient appears in no apparent distress at this time. No changes from previously documented assessment. Patient and/or family updated on plan of care and expected duration. Pain level reassessed. Patient is alert, oriented x 3, equal unlabored respirations, skin warm/dry/pink. Vital Signs: 04:48 BP 126 / 98; Pulse 102; Resp 18 S; Temp 98.4(O); Pulse Ox 98% on R/A; Weight 116.12 kg bb (R); Height 5 ft. 1 in. (154.94 cm) (R); Pain 10/10; 05:30 BP 121 / 84; Pulse 80; Resp 18; Pulse Ox 98% on R/A; wh 06:37 BP 150 / 75; Pulse 75; Resp 18; Pulse Ox 96% on R/A; wh 04:48 Body Mass Index 48.37 (116.12 kg, 154.94 cm) bb ED Course: 04:31 Patient arrived in ED. bp1 04:40 Bill Ureña MD is Attending Physician. mh7 04:53 Triage completed. bb 04:56 Renea Ortiz is Primary Nurse. wh 04:57 Arm band placed on Patient placed in an exam room, on a stretcher, on cardiac exercise specialist, bb on pulse oximetry. 05:10 Inserted saline lock: 20 gauge in left antecubital area, using aseptic technique. Blood wh collected. 05:30 Patient has correct armband on for positive identification. Placed in gown. Bed in low wh position. Call light in reach. Side rails up X 1. monitor worker on. Pulse ox on. NIBP on. 05:31 XRAY Chest (1 view) In Process Unspecified. EDMS 05:52 Todd Elizabeth MD is Hospitalizing Provider. [facility] 06:38 No provider procedures requiring assistance completed. Patient admitted, IV remains in place. Administered Medications: 06:00 Drug: Lasix 40 mg {Note: 116/82.} Route: IVP; Site: left antecubital; 06:38 Follow up: Response: No adverse reaction 06:01 Drug: Aspirin Chewable Tablet 324 mg Route: PO; 06:38 Follow up: Response: No adverse reaction Outcome: 05:53 Decision to Hospitalize by Provider. [facility] 06:38 Admitted to ER Hold. Please see [facility] for further documentation. 06:38 Condition: stable 06:38 Instructed on the need for admit. 17:18 Patient left the ED. jr10 Signatures: Dispatcher [employer] EDMS Ayleen Barraza RN RN Renae Ortiz Vicky Peace Maurice, MD MD [facility] Dayana Jones RN RN [email or web address] Corrections: (The following items were deleted from the chart) 06:49 05:29 Cardiovascular: Heart tones S1 S2 Rhythm is regular [facility]
--- NOTE | 2020-01-07 05:54 | EDPHYS ---
Physician Documentation [facility] [place] Name: Sukh York Age: 59 yrs Sex: Female : 1960 Arrival Date: 01/07/2020 Time: 04:31 Bed 16 Private MD: ED Physician Bill Ureña HPI: 01/06 04:55 This 59 yrs old Female presents to ER via Ambulatory with complaints of mh7 Difficulty Breathing. 04:55 The patient has shortness of breath at rest. Onset: The symptoms/episode began/occurred mh7 3 day(s) ago. Duration: The symptoms are intermittent, with no pattern. The patient's shortness of breath is aggravated by exertion, is alleviated by nothing. Associated signs and symptoms:. 04:56 Associated signs and symptoms: Pertinent positives: chest pain, Pertinent negatives: mh7 non-productive cough, productive cough, diaphoresis, dizziness, fever, hemoptysis, loss of consciousness, nausea, numbness in extremities, visual changes, vomiting. Severity of symptoms: At their worst the symptoms were moderate yesterday, in the emergency department the symptoms have improved mildly. Historical: - Allergies: 04:57 PENICILLINS; bb - Home Meds: 04:57 aspirin 81 mg oral chew once daily [Active]; carvedilol 12.5 mg oral tab 1 tab daily bb [Active]; furosemide 40 mg oral tab 1 tab once daily [Active]; glimepiride 2 mg oral tab 1 tab once daily [Active]; metformin 500 mg oral tab 1 tab twice a day [Active]; Klor-Con 20 mEq daily Oral [Active]; Breo Ellipta inhalation inhalation [Active]; Entresto 49-51 mg oral tab 1 tab 2 times per day [Active]; - PMHx: 04:57 CHF; Diabetes - NIDDM; Hypertension; COPD; bb - PSHx: 04:57 defibrillator; bb - Immunization history:: Adult Immunizations up to date. - Social history:: Smoking status: Patient/guardian denies using tobacco, but has a distant history of tobacco abuse. ROS: 04:56 Constitutional: Negative for fever, chills, and weight loss, Eyes: Negative for injury, mh7 pain, redness, and discharge, ENT: Negative for injury, pain, and discharge, Neck: Negative for injury, pain, and swelling, Abdomen/GI: Negative for abdominal pain, nausea, vomiting, diarrhea, and constipation, Back: Negative for injury and pain, : Negative for injury, bleeding, discharge, and swelling, MS/Extremity: Negative for injury and deformity, Skin: Negative for injury, rash, and discoloration, Neuro: Negative for headache, weakness, numbness, tingling, and seizure, Psych: Negative for depression, anxiety, suicide ideation, homicidal ideation, and hallucinations, Allergy/Immunology: Negative for hives, rash, and allergies, Endocrine: Negative for neck swelling, polydipsia, polyuria, polyphagia, and marked weight changes, Hematologic/Lymphatic: Negative for swollen nodes, abnormal bleeding, and unusual bruising. Exam: 04:56 Constitutional: This is a well developed, well nourished patient who is awake, alert, mh7 and in no acute distress. Head/Face: Normocephalic, atraumatic. Neck: Trachea midline, no thyromegaly or masses palpated, and no cervical lymphadenopathy. Supple, full range of motion without nuchal rigidity, or vertebral point tenderness. No Meningismus. Chest/axilla: Normal chest wall appearance and motion. Nontender with no deformity. No lesions are appreciated. Cardiovascular: Regular rate and rhythm with a normal S1 and S2. No gallops, murmurs, or rubs. Normal PMI, no JVD. No pulse deficits. 04:56 Abdomen/GI: Soft, non-tender, with normal bowel sounds. No distension or tympany. No guarding or rebound. No evidence of tenderness throughout. Back: No spinal tenderness. No costovertebral tenderness. Full range of motion. Skin: Warm, dry with normal turgor. Normal color with no rashes, no lesions, and no evidence of cellulitis. MS/ Extremity: Pulses equal, no cyanosis. Neurovascular intact. Full, normal range of motion. Neuro: Awake and alert, GCS 15, oriented to person, place, time, and situation. Cranial nerves II-XII grossly intact. Motor strength 5/5 in all extremities. Sensory grossly intact. Cerebellar exam normal. Normal gait. Psych: Awake, alert, with orientation to person, place and time. Behavior, mood, and affect are within normal limits. 04:56 Respiratory: the patient does not display signs of respiratory distress, Respirations: normal, Breath sounds: rhonchi, that are mild, are scattered, Respiratory rate: 18 07:03 ECG was reviewed by the Attending Physician. [facility] Vital Signs: 04:48 BP 126 / 98; Pulse 102; Resp 18 S; Temp 98.4(O); Pulse Ox 98% on R/A; Weight 116.12 kg bb (R); Height 5 ft. 1 in. (154.94 cm) (R); Pain 10/10; 05:30 BP 121 / 84; Pulse 80; Resp 18; Pulse Ox 98% on R/A; wh 06:37 BP 150 / 75; Pulse 75; Resp 18; Pulse Ox 96% on R/A; wh 04:48 Body Mass Index 48.37 (116.12 kg, 154.94 cm) bb MDM: 04:54 Patient medically screened. [facility] 05:50 Differential diagnosis: Anemia Anxiety Reaction Bronchitis CHF exacerbation, Chronic mh7 Obstructive Pulmonary Disease Myocardial Infarction pneumonia, pulmonary edema. Data reviewed: vital signs, nurses notes, old medical records, lab test result(s), cardiac enzymes, CBC, electrolytes, urinalysis, EKG, radiologic studies, plain films. Data interpreted: Pulse oximetry: on is 94 %. Interpretation: acceptable, Plan: O2 by NC applied. Counseling: I had a detailed discussion with the patient and/or guardian regarding: the historical points, exam findings, and any diagnostic results supporting the discharge/admit diagnosis, lab results, radiology results, the need for further work-up and treatment in the hospital. 05:50 Response to treatment: the patient's symptoms have mildly improved after treatment. [facility] 01/06 04:54 Order name: Basic Metabolic Panel; Complete Time: 05:44 01/06 04:54 Order name: CBC with Diff; Complete Time: 05:36 [facility] 01/06 04:54 Order name: LFT's; Complete Time: 05:44 01/06 04:54 Order name: Magnesium; Complete Time: 05:44 01/06 04:54 Order name: NT PRO-BNP; Complete Time: 05:44 01/06 04:54 Order name: PT-INR; Complete Time: 05:36 [facility] 01/06 04:54 Order name: Troponin (emerg Dept Use Only); Complete Time: 05:44 [facility] 01/06 04:54 Order name: XRAY Chest (1 view) [facility] 01/06 05:08 Order name: Urine Dipstick--Ancillary (enter results); Complete Time: 05:36 tt3 01/06 08:04 Order name: Glucose, Ancillary Testing [facility] 01/06 13:30 Order name: Glucose, Ancillary Testing [facility] 01/06 14:04 Order name: CORONAVIRUS [facility] 01/06 04:54 Order name: EKG; Complete Time: 04:55 [facility] 01/06 04:54 Order name: Cardiac monitoring; Complete Time: 05:10 [facility] 01/06 04:54 Order name: EKG - Nurse/Tech; Complete Time: 05:10 [facility] 01/06 04:54 Order name: IV Saline Lock; Complete Time: 05:11 [facility] 01/06 04:54 Order name: Labs collected and sent; Complete Time: 05:10 [facility] 01/06 04:54 Order name: O2 Per Protocol; Complete Time: 05:11 [facility] 01/06 04:54 Order name: O2 Sat Monitoring; Complete Time: 05:11 [facility] 01/06 04:54 Order name: Urine Dipstick-Ancillary (obtain specimen); Complete Time: 04:56 7 EC:03 Rate is 75 beats/min. Rhythm is regular, Normal Sinus Rhythm. Left axis deviation 7 noted. WV interval is normal. QRS interval is normal. QT interval is normal. No Q waves. T waves are Normal. No ST changes noted. Clinical impression: Abnormal EKG without significant change and LVH. Administered Medications: 06:00 Drug: Lasix 40 mg {Note: 116/82.} Route: IVP; Site: left antecubital; 06:38 Follow up: Response: No adverse reaction 06:01 Drug: Aspirin Chewable Tablet 324 mg Route: PO; 06:38 Follow up: Response: No adverse reaction Disposition: 06:54 Co-signature as Attending Physician, Bill Ureña MD. [facility] Disposition: 01/07/20 05:53 Hospitalization ordered by Todd Elizabeth for Observation. Preliminary diagnosis are CHF Exacerbation, Chest Pain. - Bed requested for Telemetry/MedSurg (observation). - Status is Observation. jr10 - Condition is Stable. - Problem is an acute exacerbation. - Symptoms have improved. Signatures: Dispatcher [employer] EDMS Verona Hinson Ayleen Orellana, RN RN bb Judy Mayer, RN RN tl1 Renea Ortiz Maurice, MD MD 7 Dayana Jones RN RN jr10 Corrections: (The following items were deleted from the chart) 06:18 05:53 Hospitalization Ordered by Todd Elizabeth MD for Observation. Preliminary tl1 diagnosis is CHF Exacerbation; Chest Pain. Bed requested for Telemetry/MedSurg (observation). Status is Observation. Condition is Stable. Problem is an acute exacerbation. Symptoms have improved. 7 15:21 06:18 01/07/2020 05:53 Hospitalization Ordered by Todd Elizabeth MD for Observation. bd Preliminary diagnosis is CHF Exacerbation; Chest Pain. Bed requested for [facility] ER HOLD. Status is Observation. Condition is Stable. Problem is an acute exacerbation. Symptoms have improved. tl1 17:18 15:21 01/07/2020 05:53 Hospitalization Ordered by Todd Elizabeth MD for Observation. jr10 Preliminary diagnosis is CHF Exacerbation; Chest Pain. Bed requested for Telemetry/MedSurg (observation). Status is Observation. Condition is Stable. Problem is an acute exacerbation. Symptoms have improved. bd
[2020-01-07] MEDS ORDERED: ASPIRIN 81 MG CHEWABLE TABLET ONE (06:02)
[2020-01-07] MEDS ORDERED: FUROSEMIDE 40 MG/4 ML VIAL ONE ×2 (06:02→07:38)
[2020-01-07] MEDS ORDERED: ONDANSETRON 4 MG/2 ML VIAL IV PRN (06:40)
[2020-01-07 06:43] VITALS: BMI 48.3
[2020-01-07] MEDS: INSULIN -REGULAR HUMAN 50 UNIT/0.5 ML ML SQ SCH ×4 (07:30→21:00)
[2020-01-07] MEDS ORDERED: ENOXAPARIN 40 MG/0.4 ML SQ ONE (07:38)
[2020-01-07] MEDS ORDERED: PNEUMOCOCCAL VACCINE 0.5 ML IMVAC ONE (08:00)
--- NOTE | 2020-01-07 08:37 | RAD REPORT ---
EXAM DESCRIPTION: RAD - Chest Single View - 01/07/2020 5:31 am CLINICAL HISTORY: SOB Chest pain. COMPARISON: Chest Single View dated 09/19/2019; Chest Single View dated 08/13/2018; Chest Single View d ated 07/23/2018; Chest Single View dated 04/20/2018 FINDINGS: Portable technique limits examination quality. Mild interstitial pulmonary edema is seen. The heart is enlarged in size with multilead pacer/defibri llator device. No displaced fractures.Trace pleural fluid. IMPRESSION: Mild to moderate CHF.
[2020-01-07] MEDS: ENOXAPARIN 40 MG/0.4 ML SQ SCH (08:52)
[2020-01-07] MEDS: FUROSEMIDE 40 MG/4 ML VIAL IV SCH ×2 (08:52→17:36)
--- NOTE | 2020-01-07 14:51 | P.HP ---
Certification for Inpatient Patient admitted to: Inpatient With expected LOS: >2 Midnights Practitioner: I am a practitioner with admitting privileges, knowledge of patient current condition, hospital course, and medical plan of care. Services: Services provided to patient in accordance with Admission requirements found in Title 42 Section 412.3 of the Code of Federal Regulations Patient History Date of Service: 01/07/20 Reason for admission: SOB History of Present Illness: 59 yrs old Female with past medical history of hypertension, diabetes, hyperlipidemia, CAD, CHF status post pacemaker admitted with complaints of shortness of breath. the symptoms started 3 days back and has been progressively worsening hence was brought to the ER. Shortness was aggravated by exertion .associated with chest discomfort. No fever no chills. No nausea vomiting or diarrhea. No sick contacts Patient was assessed in the ER and was found to have CHF exacerbation and was a dmitted for further management Allergies Penicillins Allergy (Mild, Verified 01/07/20 06:43) Hives Home medications list reviewed: Yes Home Medications: Aspirin [Lo-Dose Aspirin EC] 81 mg PO DAILY 12/11/17 Furosemide 40 mg PO DAILY 12/11/17 Glimepiride 2 mg PO BEDTIME 12/11/17 Metformin HCl 500 mg PO BID 12/11/17 Potassium Oral Tab [Klor-Con 10 mEq Tab*] 20 meq PO DAILY 12/11/17 carvediloL [Carvedilol] 12.5 mg PO BEDTIME 12/11/17 lisinopriL [Lisinopril] 40 mg PO DAILY 12/11/17 - Past Medical/Surgical History Has patient received pneumonia vaccine in the past: No Diabetic: No Past Medical History: Reviewed- Non-Contributory -: HTN -: DM -: CHF -: AICD placement -: DEE DEE -: Obesity -: COPD Past Surgical History: Reviewed- Non-Contributory -: AICD placement 2014 -: cholecystectomy -: vein surgery - Family History Family History: Reviewed- Non-Contributory - Social History Smoking Status: Former smoker Alcohol use: No CD- Drugs: No Caffeine use: Yes Place of Residence: Home Review of Systems 10-point ROS is otherwise unremarkable Physical Examination - Vital Signs Temperature: 98.2 F Blood Pressure: 103/72 Pulse: 65 Respirations: 18 Pulse Ox (%): 98 - Physical Exam General: Alert, In no apparent distress, Oriented x3 HEENT: Atraumatic, Normocephalic Neck: Supple Respiratory: Diminished, Crackles/rales Cardiovascular: Regular rate/rhythm, Normal S1 S2 Capillary refill: <2 Seconds Gastrointestinal: Soft and benign, W/out hepatosplenomegaly Musculoskeletal: No clubbing, Swelling Integumentary: No rashes Neurological: Normal speech, Normal strength at 5/5 x4 extr Lymphatics: No axilla or inguinal lymphadenopathy - Studies Laboratory Data (last 24 hrs) 01/07/20 05:10: PT 13.5 H, INR 1.15 01/07/20 05:10: WBC 6.2, Hgb 11.8 L, Hct 36.1, Plt Count 151 L 01/07/20 05:10: Sodium 143, Potassium 3.7, BUN 20 H, Creatinine 0.66, Glucose 122 H, Magnesium 2.0, Total Bilirubin 0.6, AST 10 L, ALT 27, Alkaline Phosphatase 62 Assessment and Plan - Problems (Diagnosis) (1) Diabetes Onset Date: 12/12/17 Current Visit: No Status: Chronic Qualifiers: Diabetes mellitus type: type 2 Diabetes mellitus assisted insulin use: without assisted use Diabetes mellitus complication status: without complication Qualified Code(s): E11.9 - Type 2 diabetes mellitus without complications (2) HTN (hypertension) Onset Date: 12/12/17 Current Visit: No Status: Chronic Qualifiers: Hypertension type: essential hypertension Qualified Code(s): I10 - Essential (primary) hypertension (3) Morbid (severe) obesity due to excess calories Onset Date: 12/12/17 Current Visit: No Status: Chronic (4) DEE DEE (obstructive sleep apnea) Onset Date: 12/12/17 Current Visit: No Status: Chronic (5) Acute CHF Onset Date: 12/12/17 Current Visit: No Status: Resolved Qualifiers: Heart failure type: systolic Qualified Code(s): I50.21 - Acute systolic (congestive) heart failure - Plan Acute on chronic systolic CHF Nonischemic cardiomyopathy, status post defibrillator, Diabetes, Hypertension Hyperlipidemia history of CHF History of CAD Plan Monitor closely under telemetry Antihypertensives titrated Aggressive diuresis Continue home medications and titrate as needed X-rays chest showing CHF Will get a repeat x-ray in a.m. Insulin sliding scale will get an A1c and lipid panel in am GI/DVT prophylaxis - Advance Directives Does patient have a Living Will: No Does patient have a Durable POA for Healthcare: No Time Spent Managing Pts Care (In Minutes): 45
[2020-01-07] MEDS ORDERED: carvediloL 12.5 MG TAB PO SCH (21:00)
[2020-01-08] MEDS: FUROSEMIDE 40 MG/4 ML VIAL IV SCH ×2 (01:30→08:44)
[2020-01-08 04:20] LABS: Absolute Lymphocytes (CBC) 1.5 K/uL (0.7-4.9); Basophils % 1.1 % (0-1.3); Hematocrit 38.2 % (36.0-45.0); Lymphocytes % 27.1 % (15.3-44.8); MPV 10.7 fL (7.6-11.3); RBC Red Blood Cell Count 4.57 M/uL (3.86-4.86)
[2020-01-08 04:31] LABS: BUN Blood Urea Nitrogen 17 mg/dL (7-18); Bicarbonate 29 mmol/L (21-32); Glucose Level 108 mg/dL (74-106); Magnesium 2.3 mg/dL (1.8-2.4); Potassium 3.2 mmol/L (3.5-5.1); Sodium Level 143 mmol/L (136-145)
[2020-01-08] MEDS: INSULIN -REGULAR HUMAN 50 UNIT/0.5 ML ML SQ SCH (07:30)
[2020-01-08] MEDS: ENOXAPARIN 40 MG/0.4 ML SQ SCH (08:44)
[2020-01-08 08:56] VITALS: O2SAT 97
[2020-01-08] MEDS ORDERED: POTASSIUM CL SA 10 MEQ TAB PO ONE (09:00)
[2020-01-08] MEDS ORDERED: HOME MED 1 EA UNK (Lisinopril [Lisinopril] 40 MG) PO SCH (09:00)
[2020-01-08] MEDS ORDERED: ASPIRIN EC 81 MG TAB PO SCH (09:00)
[2020-01-08] MEDS ORDERED: POTASSIUM CL SA 10 MEQ TAB PO SCH (09:00)
[2020-01-08] MEDS ORDERED: lisinopriL 20 MG TAB PO SCH (09:00)
[2020-01-08 09:09] VITALS: BP 103/65; TEMP 96.8
--- NOTE | 2020-01-08 10:04 | P.DS ---
Admission Date: 01/07/20 Discharge Date: 01/08/20 Disposition: ROUTINE DISCHARGE Discharge Condition: GOOD Reason for Admission: SOB - Problems (1) Diabetes Onset Date: 12/12/17 Status: Chronic Qualifiers: Diabetes mellitus type: type 2 Diabetes mellitus jail insulin use: without rodent exterminator use Diabetes mellitus complication status: without complication Qualified Code(s): E11.9 - Type 2 diabetes mellitus without complications (2) HTN (hypertension) Onset Date: 12/12/17 Status: Chronic Qualifiers: Hypertension type: essential hypertension Qualified Code(s): I10 - Essential (primary) hypertension (3) Morbid (severe) obesity due to excess calories Onset Date: 12/12/17 Status: Chronic (4) DEE DEE (obstructive sleep apnea) Onset Date: 12/12/17 Status: Chronic (5) Acute CHF Onset Date: 12/12/17 Status: Resolved Qualifiers: Heart failure type: systolic Qualified Code(s): I50.21 - Acute systolic (congestive) heart failure Brief History of Present Illness: 59 yrs old Female with past medical history of hypertension, diabetes, hyp erlipidemia, CAD, CHF status post pacemaker admitted with complaints of shortness of breath. the symptoms started 3 days back and has been progressively worsening hence was brought to the ER. Shortness was aggravated by exertion .associated with chest discomfort. No fever no chills. No nausea vomiting or diarrhea. No sick contacts Patient was assessed in the ER and was found to have CHF exacerbation and was admitted for further management Hospital Course: Acute on chronic systolic CHF Nonischemic cardiomyopathy, status post defibrillator, Diabetes, Hypertension Hyperlipidemia history of CHF History of CAD Plan Monitor closely under telemetry Antihypertensives titrated Aggressive diuresis Continue home medications and titrate as needed X-rays chest showing CHF The patient was admitted and was monitor closely under telemetry. Was started on aggressive diuresis. Cardiology was consulted. She was started on home medications and titrate as needed.Patient responded well to the treatment and is being discharged home today in a stable condition with advice to follow up with PCP in 1 week and also with Cardiology in 1 2 weeks Vital Signs/Physical Exam: Temp Pulse Resp BP Pulse Ox 96.8 F 61 18 103/65 99 01/08/20 08:00 01/08/20 08:00 01/08/20 08:00 01/08/20 08:00 01/08/20 08:00 General: Alert, In no apparent distress HEENT: Atraumatic, Normocephalic Neck: Supple Respiratory: Clear to auscultation bilaterally Cardiovascular: Regular rate/rhythm, Normal S1 S2 Capillary refill: <2 Seconds Gastrointestinal: Soft and benign, W/out hepatosplenomegaly Musculoskeletal: No clubbing, No swelling Integumentary: No rashes Neurological: Normal strength at 5/5 x4 extr Lymphatics: No axilla or inguinal lymphadenopathy Laboratory Data at Discharge: WBC 5.4 K/uL (4.3-10.9) 01/08/20 03:35 Hgb 12.4 g/dL (12.0-15.0) 01/08/20 03:35 Hct 38.2 % (36.0-45.0) 01/08/20 03:35 Plt Count 146 K/uL (152-406) L 01/08/20 03:35 PT 13.5 SECONDS (9.5-12.5) H 01/07/20 05:10 INR 1.15 01/07/20 05:10 Sodium 143 mmol/L (136-145) 01/08/20 03:35 Potassium 3.2 mmol/L (3.5-5.1) L 01/08/20 03:35 BUN 17 mg/dL (7-18) 01/08/20 03:35 Creatinine 0.55 mg/dL (0.55-1.3) 01/08/20 03:35 Glucose 108 mg/dL (74-106) H 01/08/20 03:35 Magnesium 2.3 mg/dL (1.8-2.4) 01/08/20 03:35 Total Bilirubin 0.6 mg/dL (0.2-1.0) 01/07/20 05:10 AST 10 U/L (15-37) L 01/07/20 05:10 ALT 27 U/L (12-78) 01/07/20 05:10 Alkaline Phosphatase 62 U/L (45-117) 01/07/20 05:10 Home Medications: Aspirin [Lo-Dose Aspirin EC] 81 mg PO DAILY 12/11/17 Glimepiride 2 mg PO BEDTIME 12/11/17 Metformin HCl 500 mg PO BID 12/11/17 Potassium Oral Tab [Klor-Con 10 mEq Tab*] 20 meq PO DAILY 12/11/17 carvediloL [Carvedilol] 12.5 mg PO BEDTIME 12/11/17 lisinopriL [Lisinopril] 40 mg PO DAILY 12/11/17 Furosemide [Lasix] 40 mg PO BID #60 tablet 01/08/20 New Medications: Furosemide [Lasix] 40 mg PO BID #60 tablet Followup: Jose Alberto Mac MD [ACTIVE - CAN ADMIT] - (Call to make an appointment. ) Time spent managing pt's care (in minutes): 42
== END 2020-01-08 10:50 | disposition home or self-care (01) ==
LOC: ER 04:29 → ERHOLD 06:21 → 2ND 16:56
PROVIDERS: ADMIT Family Medicine; ATTEND Family Medicine
DX: I11.0 Hypertensive heart disease with heart failure (principal); I50.23 Acute on chronic systolic (congestive) heart failure; I42.8 Other cardiomyopathies; Z20.828 Contact with and (suspected) exposure to other viral communicable diseases; E78.5 Hyperlipidemia, unspecified; E11.9 Type 2 diabetes mellitus without complications; I25.10 Atherosclerotic heart disease of native coronary artery without angina pectoris; G47.33 Obstructive sleep apnea (adult) (pediatric); J44.9 Chronic obstructive pulmonary disease, unspecified; E66.01 Morbid (severe) obesity due to excess calories; Z68.42 Body mass index [BMI] 45.0-49.9, adult; Z79.82 Long term (current) use of aspirin; Z79.84 Long term (current) use of oral hypoglycemic drugs; Z79.51 Long term (current) use of inhaled steroids; Z79.899 Other long term (current) drug therapy; Z95.810 Presence of automatic (implantable) cardiac defibrillator; Z87.891 Personal history of nicotine dependence
CPT/HCPCS: 93005; 85025 ×2; 80048 ×2; 36415 ×2; 83735 ×2; 85610; 82947 ×5; 80076; 81003; 84484; 83880; 71045; 96374; 99285; U0002; J1940 ×5; J1650 ×2; G0378 ×3

== ENCOUNTER 2020-02-10 08:36 | Emergency (ER) | payer OTHER ==
--- OUTSIDE RECORDS SUMMARY | 2020-02-10 08:41 | XMS REPORT | Clinical Summary ---
:1960 Author Organization [facility] Address [address] [place] [address] Care Team Providers Name Role Phone Unavailable [...] VACCINE (#1) 2020 Results Not on fileafter 02/09/2019 Insurance Payer Benefit Plan / Group Subscriber ID Type Phone A ddress [facility] MEDICARE HMO xxxxxxxxx MEDICARE [place] CARE MEDICAID [place] xxxxxxxxx Medicaid
--- OUTSIDE RECORDS SUMMARY | 2020-02-10 08:42 | XMS REPORT ---
[...] Problem Coronary artery disease involving I25.10 Active [place] coronary artery of [place] heart, angina presence unspecified Problem BMI 45.0-49.9, [...]
--- OUTSIDE RECORDS SUMMARY | 2020-02-10 08:42 | XMS REPORT | Continuity of Care Document ---
:1960 Author Organization [facility] t Address [address] [place] [address] Care Team Providers Name Role Phone IVONNE [...] St edema edema [facility] Pain in Pain in Problem Active [facility] right hand right hand R[facility]ali k[facility] - [facility] Outpat[facility] ent Clinics BMI BMI Problem Active [facility] 45.0-49.9, 45.0-49.9, Rupali kes - adult adult [facility] Morbid Morbid Problem Active [facility] (severe) (severe) [facility] - obesity obesity Memoria due to due to l excess excess [facility] calories calories ent Clinics Varicose Varicose Problem Active [facility] veins of veins of [facility] - bilateral bilateral Andres jorge l lower lower l extremitie extremitie Ou tpati s with s with ent pain pain Clinics Depression Depression Problem Active [facility] Diabetes Diabetes Problem Active [facility] type 2, type 2, [facility] - controlled controlled Me moria l [facility] Peripheral Peripheral Problem Active [facility] vascular vascular [facility] - disease disease [facility] l [facility] Other Other Problem Active [facility] chronic chronic [facility] - pain pain [facility] Pain in Pain in Problem Active [facility] right knee right knee [facility]ali kes - [facility] ent Clinics Hypertensi Hypertensi Problem Active [facility] on, on, [facility] - unspecifie unspecifie Me moria d type d type l [facility] Shortness Shortness Problem Active [facility] of breath of breath [facility] - [facility] Heart Heart Problem Active [facility]ics Acute pain Acute pain Problem Active [facility] of left of left [facility] - shoulder shoulder Memori a l [facility] Neck pain Neck pain Problem Active [facility] Acute Acute Problem Active [facility] nonintract nonintract Rupali kes - able able Memoria headache, headache, l unspecifie unspecifie Ou tpati d headache d headache en t type type Clinics Chest Chest Problem Active [facility] pain, pain, [facility] - unspecifie unspecifie Me moria d type d type l [facility] Congestive Congestive Problem Active [facility] heart heart [facility] - failure failure [facility] Varicose Varicose Problem Active [facility] veins of veins of [facility] - both lower both lower Me moria extremitie extremitie l s, s, Outpati unspecifie unspecifie en t d whether d whether Clin ics complicate complicate d d Polyarthra Polyarthra Problem Active [facility] lgia lgia [facility] Frequent Frequent Problem Active [facility] [place] [facility] Tremor of Tremor of Problem Active [facility] both hands both hands [facility] Cardiomyop Cardiomyop Problem Active [facility] athy athy [facility] Coronary Coronary Problem Active [facility] artery artery [facility] - disease disease Memoria involving involving l [place] [facility] coronary coronary ent artery of artery of Clin ics [place] heart, heart, angina angina presence presence unspecifie unspecifie d d CAD CAD Problem Active [facility] (coronary (coronary Luke s - artery artery Memoria disease) disease) l [facility] Primary Primary Problem Active [facility] osteoarthr osteoarthr Rupali kes - itis of itis of [facility] right knee right knee l [facility] Body mass Body mass Problem Active [facility] index index [facility] (BMI) [facility] ([facility] 40.0-44.9 40.0-44.9 l in adult in adult Outpat i ent Clinics Constipati Constipati Problem Active [facility] on, on, [facility]ukes - unspecifie unspecifie Me moria d d l constipati constipati Ou tpati on type on type ent Clinics Swelling Swelling Problem Active [facility] of left of left [facility] - lower lower Memoria extremity extremity l [facility]ics Left foot Left foot Problem Active [facility] pain pain [facility] Left leg Left leg Problem Active [facility] pain pain [facility] Bruising Bruising Problem Active [facility] Hematoma Hematoma Problem Active [facility] of left of left [facility] - lower lower Memoria extremity, extremity, l subsequent subsequent Ou tpati encounter encounter ent Clinics Right leg Right leg Problem Active [facility] pain pain [facility] Status Status Problem Active [facility] post fall post fall Luke s - [facility]oria [facility] Mold Mold Problem Active [facility] exposure exposure [facility] Asthma, Asthma, Problem Active [facility] unspecifie unspecifie Rupali kes - d asthma d asthma Memori a severity, severity, l unspecifie unspecifie Ou tpati d whether d whether ent complicate complicate Cl inics d, d, unspecifie unspecifie d whether d whether persistent persistent Dizziness Dizziness Problem Active [facility] Allergies, Adverse Reactions, Alerts Allergy Allergy Status Severity Reaction(s) Onset Inactive Treating Comm ents Source Name Type Date Date Clinician penicill Adverse Active Info Not [facility] in Reaction Available [facility] Social History Social Habit Start Date Stop Date Quantity Comments Source Sex Assigned At [facility] Medications Ordered Filled Start Stop Current Ordering Indication Dosage Frequency Signature Comments Components Source Medication Medication Date Date Medication? Clinician (SIG) Name Name Blood Blood 2018-05 Yes Kilo as [facility] Glucose Glucose 2-03 Hernandez directed Luke s - Monitor Monitor 00:00: (DISPENSE Me moria 00 BLOOD l GLUCOSE Outpati MONITOR ent FORMULARY Clinics TO INSURANCE) Lancets Lancets 2018-05 Yes Kiol as [facility] 2-03 Hernandez directed [...] [facility] Hernandez [facility] Macario Macario Yes Kilo [address] [address] Aspirin EC Aspirin EC Hernandez Rupali kes - Low Dose Low Dose Memoria [facility] Lisinopril Lisinopril Yes Kilo [address] [facility] Hernandez [facility] Furosemide Furosemide Yes Kilo [address] [facility] Hernandez in am [facility]ics Coreg Coreg Yes Kilo [address] [facility] Hernandez [facility] Metformin Metformin Yes Kilo [address] HCl HCl Hernandez with meals [facility] Entresto Entresto Yes Kilo [address] 49/51mg 49/51mg Hernandez [facility] Klor-Con 10 Klor-Con 10 2019- No Kilo [address] 01-05 Hernandez [facility] - 00:00 Memoria :00 l [facility] ent Clinics Procedures This patient has no [...] Test 00:00:00 (procedure) [code = [facility] [id number]] Future Scheduled [address] [facility] [place] [facility] - Test 00:00:00 malignant neoplasm Medical C enter of colon (procedure) [code = 758356801] Encounters Start End Encounter Admission Attending Care Care Encounter Source Date/Time Date/Time Type Type Clinicians Facility Department ID 2019-12-27 2019-12-27 [place] [facility] [id number] 11:15:00 11:15:00 [employer] [facility] l Medicine Outpati ent Clinics 2019-12-27 2019-12-27 [facility] [place] [id number] [address] 09:19:00 09:19:00 Circular [facility] Medicine l Medicine Outpati ent Clinics 2019-10-26 2019-10-26 [facility] [id number] 08:15:00 08:15:00 [facility] 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 [employer] [facility] Medicine l Medicine Outpati ent Clinics 2019-10-20 2019-10-20 [facility] [id number] [address] 23:40:00 23:40:00 [facility] 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 [employer] [facility] Medicine l Medicine Outpati ent Clinics 2019-10-20 2019-10-20 [facility] [id number] 14:40:00 14:40:00 [facility] 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 [employer] [facility] Medicine l Medicine Outpati ent Clinics 2019-08-19 2019-08-19 [facility] [id number] [address] 11:54:00 11:54:00 [facility] [employer] [facility] Medicine l Medicine Outpati ent Clinics 2019-07-25 2019-07-25 [facility] [id number] 13:11:00 13:11:00 [facility] Medicine Outpati ent Clinics 2019-07-20 2019-07-20 [facility] [id number] 11:00:00 11:00:00 [facility] Medicine Outpati ent Clinics 2019-04-24 2019-04-24 [place] [place] [id number] [address] 03:26:00 03:26:00 [facility] Medicine Outpati ent Clinics 2019-04-20 2019-04-20 [facility] [id number] 09:40:00 09:40:00 [facility] Outpati ent Clinics 2019-03-22 2019-03-22 Outpatient Judy Kim [id number] [facility] 14:55:00 14:55:00 Yanick Herndon [facility] Outpati ent Clinics 2019-02-12 2019-02-[address] [facility] [id number] 10:42:57 11:02:57 Visit Tom Fishman AMBULATOR [id number] 2019-01-19 2019-01-19 [place] [place] [id number] 14:40:00 14:40:00 [facility] Outpati ent Clinics 2018-11-04 2018-11-04 [facility] [id number] [address] 12:03:00 12:03:00 [facility] Medicine Outpati ent Clinics 2018-08-26 2018-08-26 [facility] [id number] 11:20:00 11:20:00 [facility] Medicine Outpati ent Clinics 2018-08-14 2018-08-14 [place] [place] [id number] 14:30:00 14:30:00 [facility] Medicine Outpati ent Clinics 2018-08-03 2018-08-03 [facility] [id number] 12:32:00 12:32:00 t [facility] Medicine Outpati ent Clinics 2018-06-01 2018-06-01 [place] [place] [id number] 10:15:00 10:15:00 t [facility] Medicine Outpati ent Clinics 2018-03-02 2018-03-02 [place] [id number] 09:00:00 09:00:00 t [facility] Medicine Outpati ent Clinics 2018-01-30 2018-01-30 [facility] [id number] [address] 11:30:00 11:30:00 t [facility] Medicine Outpati ent Clinics 2018-01-20 2018-01-20 [facility] [id number] 09:46:00 09:46:00 t [facility] Medicine Outpati ent Clinics 2018-01-13 2018-01-13 [facility] [id number] 10:00:00 10:00:00 t [facility] ent Clinics 2017-12-25 2017-12-25 [facility] [id number] 10:56:00 10:56:00 t [facility] Medicine Outpati ent Clinics 2017-12-09 2017-12-09 [facility] [id number] 21:03:00 21:03:00 t [facility] Medicine Outpati ent Clinics 2017-12-09 2017-12-09 [facility] [id number] 09:45:00 09:45:00 t [facility] Medicine Outpati ent Clinics 2017-12-03 2017-12-03 [facility] [id number] 10:45:00 10:45:00 t [facility] Medicine Outpati ent Clinics 2017-09-05 2017-09-05 Outpatient Tiffanie Walters [id number] 16:00:00 16:00:00 t Urgent [facility] L [facility] - Care [facility] l Outpati ent Clinics 2017-07-11 2017-07-11 Outpatient Yahaira CORONADO, [facility] [id number] 17:58:00 17:58:00 [facility] Results Test Description Test Time Test Comments [...] (NOTE)RISK OF HEART LDLC) DISEASEPublishe d by [place] Heart AssociationAnal yte Optimal Boderline Increased R iskCHOL <200 200-239 >240TRIG <150 150-199 >200HDL Male: >60 <40HDL Female: & gt;60 <50LDL <100 130- 159 >160LDL NEAR OPTIMAL IS 100- 129 VLDL (test code = VLDL) 15 mg/dL 5-40 N LDL/HDL (test code = LDLPHDL) 2 Comprehensive Metabolic [id number] 22:09:00 Test Item Value Reference Range Interpretation [...] by the National Kidney Foundation,http ://nkd ep.nih.gov [id number] 22:05:00 Test Item Value Reference Range Interpretation Comments NT ProBnp (test code = PBNP) 1920 pg/mL 0-124 H CBC with [id number] 18:24:00 Test Item Value Reference Range Interpretation [...] code = ALYMPH) 1.4 K/cumm 0.5-4.6 N Izard Abs (test code = AMONO) 0.3 K/cumm 0.0-1.2 N Eos Abs (test code = AEOS) 0.09 K/cumm 0.00-0.74 N Baso Abs (test code = ABASO) 0.0 K/cumm 0.00-0.21 N
--- OUTSIDE RECORDS SUMMARY | 2020-02-10 08:42 | XMS REPORT ---
[...] of [place] heart, angina presence unspecified Problem BMI 45.0-49.9, [...] Status Dosage System Date Date Klor-Con 10 [facility] 09435202282 10 MEQ Orally Active 1 tablet Once a day Lancets [facility] [id number] - as directed Apr 20, Active as dir ected Test BS once 2019 (dispense daily lancets formulary to insurance) Coreg ND 95695737658 12.5 MG Orally Active 1 tab let Once daily Glimepiride ND 86636487183 2 MG Orally Active 1 ta blet Once a day Macario Aspirin ND 02358725691 81 MG Orally Active 1 tablet EC Low Dose Once a day Blood Glucose NDC 0 as directed Apr 20, Active as di rected Monitor Test BS once 2019 (DISPENSE daily BLOOD GLUCOSE MONITOR FORMULARY TO INSURANCE) Metformin HCl ND 12454029697 500 MG Orally Active 1 tablet Twice a day with meals Lisinopril ND 42083886819 40 MG Orally Active 1 ta blet Once a day Entresto ND 33247771828 49/51mg Orally Active 1 ta blet 49/51mg Twice daily Furosemide ND 78661732508 40 MG Orally Active 1 ta blet in Once a day am Blood Glucose NDC 0 as directed Apr 20, Active as di rected Test Strip Test BS once 2019 (DISPENS E daily BLOOD GLUCOSE TEST STRIPS FORMULARY TO INSURANCE) Results No Known Results Summary Purpose eClinicalWorks Submission
--- NOTE | 2020-02-10 09:32 | ER ---
Nurse's Notes [facility] [place] Name: Sukh York Age: 60 yrs Sex: Female : 1960 Arrival Date: 02/10/2020 Time: 08:38 Bed 6 Private MD: Aleah Nicholson Diagnosis: Sciatica, right side Presentation: 02/09 08:41 Chief complaint: Patient states: R hip/ buttock pain that radiates down R leg x 2 days. ss Denies injury. Pt believes she had this similar thing back in October, but it wasn't this bad. Has been doing a lot of heavy lifting lately because she is moving. Coronavirus screen: Client denies travel out of the [place] in the last 14 days. Ebola Screen: Patient denies exposure to infectious person. Patient denies travel to an Ebola-affected area in the 21 days before illness onset. Initial Sepsis Screen: Does the patient meet any 2 criteria? No. Patient's initial sepsis screen is negative. Does the patient have a suspected source of infection? No. Patient's initial sepsis screen is negative. Risk Assessment: Do you want to hurt yourself or someone else? Patient reports no desire to harm self or others. Onset of symptoms was February 08, 2020. 08:41 Method Of Arrival: Ambulatory 08:41 Acuity: RADHA 4 ss Historical: - Allergies: 08:44 PENICILLINS; ss - Home Meds: 08:44 aspirin 81 mg Oral chew once daily [Active]; Breo Ellipta inhalation [Active]; Entresto ss 49-51 mg Oral tab 1 tab 2 times per day [Active]; glimepiride 2 mg Oral tab 1 tab once daily [Active]; Klor-Con 20 mEq daily Oral [Active]; furosemide 40 mg Oral tab 1 tab once daily [Active]; metformin 500 mg Oral tab 1 tab twice a day [Active]; carvedilol 12.5 mg Oral tab 1 tab daily [Active]; - PMHx: 08:44 CHF; Diabetes - NIDDM; Hypertension; COPD; ss - PSHx: 08:44 defibrillator; ss - Immunization history:: Adult Immunizations up to date. - Social history:: Smoking status: Patient denies any tobacco usage or history of. Screenin:52 Abuse screen: Denies threats or abuse. Nutritional screening: No deficits noted. tw2 Tuberculosis screening: No symptoms or risk factors identified. Fall Risk None identified. Assessment: 09:15 General: Appears in no apparent distress. obese, well groomed, Behavior is calm, tw2 cooperative, appropriate for age. Pain: Complains of pain in right low back and right leg. Neuro: Level of Consciousness is awake, alert, obeys commands, Oriented to person, place, time, situation. Cardiovascular: Patient's skin is warm and dry. Respiratory: Airway is patent Respiratory effort is even, unlabored, Respiratory pattern is regular, symmetrical. GI: No signs and/or symptoms were reported involving the gastrointestinal system. Abdomen is round non-distended, obese. EENT: No signs and/or symptoms were reported regarding the EENT system. Derm: No signs and/or symptoms reported regarding the dermatologic system. Musculoskeletal: Circulation, motion, and sensation intact. Range of motion: intact in all extremities, Reports pain in right low back and right leg. 10:09 Reassessment: Patient appears in no apparent distress at this time. No changes from tw2 previously documented assessment. Patient and/or family updated on plan of care and expected duration. Pain level reassessed. Patient is alert, oriented x 3, equal unlabored respirations, skin warm/dry/pink. Vital Signs: 08:41 BP 113 / 73; Pulse 73; Resp 16; Temp 97.2(TE); Pulse Ox 100% on R/A; Weight 116.12 kg; ss Height 5 ft. 1 in. (154.94 cm); Pain 9/10; 08:41 Body Mass Index 48.37 (116.12 kg, 154.94 cm) ED Course: 08:38 Patient arrived in ED. ag5 08:38 Aleah Nicholson MD is Private Physician. ag5 08:43 Triage completed. ss 08:44 Arm band placed on right wrist. Patient placed. 09:13 Bed in low position. Call light in reach. Pulse ox on. NIBP on. tw2 09:14 Jose Magaña PA is PHCP. jr8 09:14 Cj León MD is Attending Physician. jr8 09:31 Aleah Nicholson MD is Referral Physician. jr8 09:34 Stephanie Lam RN is Primary Nurse. tw2 09:50 Awaiting: IM injection evaluation time prior to discharge. tw2 09:52 No provider procedures requiring assistance completed. Patient did not have IV access tw2 during this emergency room visit. Administered Medications: :50 Drug: TORadol 30 mg Route: IM; Site: left deltoid; tw2 :08 Follow up: Response: No adverse reaction tw2 Outcome: 09:31 Discharge ordered by MD. dia 10: Discharged to home ambulatory. tw2 10: Condition: stable 10: Discharge instructions given to patient, Instructed on discharge instructions, follow up and referral plans. no drinking with medication, no driving heavy equipment, medication usage, Demonstrated understanding of instructions, follow-up care, medications, Prescriptions given X 2. 10:09 Patient left the ED. tw2 Signatures: Bree Castillo, RN RN Jose Rice PA PA jr8 Stephanie Lam RN RN tw2 Harriet Simon 5
--- NOTE | 2020-02-10 09:32 | EDPHYS ---
Physician Documentation [facility] Name: Sukh York Age: 60 yrs Sex: Female : 1960 Arrival Date: 02/10/2020 Time: 08:38 Bed 6 Private MD: Aleah Nicholson ED Physician Cj León HPI: 02/09 09:44 This 60 yrs old Female presents to ER via Ambulatory with complaints of Back jr8 pain. 09:44 The patient presents with pain that is acute. The symptoms are located in the low back. jr8 The pain radiates to the right leg. The problem was sustained when lifting. Onset: The symptoms/episode began/occurred acutely, yesterday. Modifying factors: The patient symptoms are alleviated by nothing, the patient symptoms are aggravated by any movement. Associated signs and symptoms: The patient has no apparent associated signs or symptoms. Severity of symptoms: At their worst the symptoms were mild, in the emergency department the symptoms are unchanged. The patient has experienced similar episodes in the past, several times. The patient has not recently seen a physician. History of sciatica in past. Stated that she was lifting a lot the other day. Now with low back pain radiating down right leg. No bowel or bladder dysfunction . Historical: - Allergies: 08:44 PENICILLINS; ss - Home Meds: 08:44 aspirin 81 mg Oral chew once daily [Active]; Breo Ellipta inhalation [Active]; Entresto ss 49-51 mg Oral tab 1 tab 2 times per day [Active]; glimepiride 2 mg Oral tab 1 tab once daily [Active]; Klor-Con 20 mEq daily Oral [Active]; furosemide 40 mg Oral tab 1 tab once daily [Active]; metformin 500 mg Oral tab 1 tab twice a day [Active]; carvedilol 12.5 mg Oral tab 1 tab daily [Active]; - PMHx: 08:44 CHF; Diabetes - NIDDM; Hypertension; COPD; ss - PSHx: 08:44 defibrillator; ss - Immunization history:: Adult Immunizations up to date. - Social history:: Smoking status: Patient denies any tobacco usage or history of. ROS: 09:44 Eyes: Negative for injury, pain, redness, and discharge, ENT: Negative for injury, jr8 pain, and discharge, Neck: Negative for injury, pain, and swelling, Cardiovascular: Negative for chest pain, palpitations, and edema, Respiratory: Negative for shortness of breath, cough, wheezing, and pleuritic chest pain, Abdomen/GI: Negative for abdominal pain, nausea, vomiting, diarrhea, and constipation, MS/Extremity: Negative for injury and deformity, Skin: Negative for injury, rash, and discoloration, Neuro: Negative for headache, weakness, numbness, tingling, and seizure. 09:44 Back: Positive for decreased range of motion, pain at rest, pain with movement, radiated pain. Exam: 09:44 Constitutional: This is a well developed, well nourished patient who is awake, alert, jr8 and in no acute distress. Cardiovascular: Regular rate and rhythm with a normal S1 and S2. No gallops, murmurs, or rubs. Normal PMI, no JVD. No pulse deficits. Respiratory: Lungs have equal breath sounds bilaterally, clear to auscultation and percussion. No rales, rhonchi or wheezes noted. No increased work of breathing, no retractions or nasal flaring. Abdomen/GI: Soft, non-tender, with normal bowel sounds. No distension or tympany. No guarding or rebound. No evidence of tenderness throughout. Skin: Warm, dry with normal turgor. Normal color with no rashes, no lesions, and no evidence of cellulitis. MS/ Extremity: Pulses equal, no cyanosis. Neurovascular intact. Full, normal range of motion. Neuro: Awake and alert, GCS 15, oriented to person, place, time, and situation. Cranial nerves II-XII grossly intact. Motor strength 5/5 in all extremities. Sensory grossly intact. Cerebellar exam normal. Normal gait. 09:44 Back: pain, that is moderate, of the right low back, ROM is painful, normal spinal alignment noted, CVA tenderness, is absent, vertebral tenderness, is not appreciated, Straight leg raises: right lower extremity illicits pain, at 30 degrees. Vital Signs: 08:41 BP 113 / 73; Pulse 73; Resp 16; Temp 97.2(TE); Pulse Ox 100% on R/A; Weight 116.12 kg; ss Height 5 ft. 1 in. (154.94 cm); Pain 9/10; 08:41 Body Mass Index 48.37 (116.12 kg, 154.94 cm) MDM: 09:14 Patient medically screened. jr8 09:30 Data reviewed: vital signs, nurses notes, and as a result, I will discharge patient. jr8 Data interpreted: Pulse oximetry: on room air is 100 %. Interpretation: normal. Counseling: I had a detailed discussion with the patient and/or guardian regarding: the historical points, exam findings, and any diagnostic results supporting the discharge/admit diagnosis, the need for outpatient follow up, a family practitioner, to return to the emergency department if symptoms worsen or persist or if there are any questions or concerns that arise at home. 02/09 09:29 Order name: Urine Dipstick--Ancillary (enter results); Complete Time: 10: em1 02/09 09:29 Order name: Urine --Ancillary (enter results); Complete Time: 10: em1 Administered Medications: 09:50 Drug: TORadol 30 mg Route: IM; Site: left deltoid; tw2 10:08 Follow up: Response: No adverse reaction tw2 Disposition: 11:28 Co-signature as Attending Physician, Cj León MD. rn Disposition: 02/10/20 09:31 Discharged to Home. Impression: Sciatica, right side. - Condition is Stable. - Discharge Instructions: Sciatica. - Prescriptions for Robaxin 500 mg Oral Tablet - take 2 tablet by ORAL route every 6 hours As needed; 40 tablet. Medrol (Omar) 4 mg Oral Tablets, Dose Pack - take 1 tablet by ORAL route as directed - follow package instructions; 1 packet. - Medication Reconciliation Form, Thank You Letter, Antibiotic Education, Prescription Opioid Use form. - Follow up: Aleah Nicholson MD; When: 2 - 3 days; Reason: Recheck today's complaints, Continuance of care, Re-evaluation by your physician. - Problem is new. - Symptoms have improved. Signatures: Dispatcher [employer] EDMS Cj León MD MD rn Smirch, Shelby, RN RN Jose Magaña PA PA jr8 Stephanie Lam RN RN tw2 Corrections: (The following items were deleted from the chart) 10:09 09:31 02/10/2020 09:31 Discharged to Home. Impression: Sciatica, right side. Condition tw2 is Stable. Forms are Medication Reconciliation Form, Thank You Letter, Antibiotic Education, Prescription Opioid Use. Follow up: Aleah Nicholson; When: 2 - 3 days; Reason: Recheck today's complaints, Continuance of care, Re-evaluation by your physician. Problem is new. Symptoms have improved. jr8
[2020-02-10] MEDS ORDERED: KETOROLAC 30 MG/ML INJ ONE (09:46)
[2020-02-10 09:57] LABS: Urine Blood 2+ (NEG); Urine Glucose NEGATIVE (NEG); Urine Protein 2+ (NEG); Urine Specific Gravity >1.030 (1.005-1.030); Urine pH 5.5 (5.0-7.0)
[2020-02-10 10:19] VITALS: BP 113/73; TEMP 97.2; O2SAT 100
== END 2020-02-10 10:09 | disposition home or self-care (01) ==
LOC: ER 08:36
DX: M54.31 Sciatica, right side (principal); I10 Essential (primary) hypertension; J44.9 Chronic obstructive pulmonary disease, unspecified; E11.9 Type 2 diabetes mellitus without complications; I50.9 Heart failure, unspecified; Z79.82 Long term (current) use of aspirin; Z88.0 Allergy status to penicillin; Z95.810 Presence of automatic (implantable) cardiac defibrillator
CPT/HCPCS: 81003; 81025; 96372; 99283

== ENCOUNTER 2020-07-14 10:15 | Emergency (ER) | payer OTHER ==
--- OUTSIDE RECORDS SUMMARY | 2020-07-14 10:19 | XMS REPORT | Continuity of Care Document ---
:1960 Author Organization [facility] t Address [address] [place] [address] Care Team Providers Name Role Phone IVONNE [...] mammograph mammograph Me moria y y l [facility] Pain in Pain in Problem Active [facility] left knee left knee [facility] - [facility] l Outpati ent Clinics AICD AICD Problem Active [facility] (automatic (automatic Rupali kes - cardiovert cardiovert Me moria er/defibri er/defibri l llator) llator) Outpati present present ent Clinics Peripheral Peripheral Problem Active [facility] edema edema [facility] Pain in Pain in Problem Active [facility] right hand right hand Rupali kes - Memoria l [facility] BMI BMI Problem Active [facility] 45.0-49.9, 45.0-49.9, Rupali kes - adult adult Memoria l [facility] Morbid Morbid Problem Active [facility] (severe) (severe) [facility] - obesity obesity Memoria due to due to l excess excess [facility] calories calories ent Clinics Varicose Varicose Problem [facility] veins of veins of [facility] - bilateral bilateral Andres jorge l lower lower l extremitie extremitie Ou tpati s with s with ent pain pain Clinics Depression Depression Problem Active [facility] Diabetes Diabetes Problem Active [facility] type 2, type 2, [facility] - controlled controlled Me moria l [facility] Clinics Peripheral Peripheral Problem Active [facility] vascular vascular [facility] Other Other Problem Active [facility] chronic chronic [facility] pain pain [facility] Pain in Pain in Problem Active [facility] right knee right knee Rupali kes - [facility] Clin[facility] Hypertensi Hypertensi Problem Active [facility] on, on, [facility]ukes - unspecifie unspecifie Me moria d type d type l [facility] ent Clinics Shortness Shortness Problem Active [facility] of breath of breath [facility] - [facility] l [facility] Heart Heart Problem Active [facility] disease disease [facility] l [facility]ics Acute pain Acute pain Problem Active [facility] of left of left [facility] - shoulder shoulder Memori a l [facility] Clinics Neck pain Neck pain Problem Active [facility] Clinics Acute Acute Problem Active [facility] nonintract nonintract Rupali kes - able able [facility] headache, headache, l unspecifie unspecifie Ou tpati d headache d headache en t type type Clinics Chest Chest Problem Active [facility] pain, pain, [facility] - unspecifie unspecifie Me moria d type d type l [facility] Congestive Congestive Problem Active [facility] heart heart [facility] - failure failure Memoria l [facility] Varicose Varicose Problem Active [facility] veins of veins of [facility] - both lower both lower Me moria extremitie extremitie l s, s, Outpati unspecifie unspecifie en t d whether d whether Clin ics complicate complicate d d Polyarthra Polyarthra Problem Active [facility] lgia lgia [facility] Frequent Frequent Problem Active [facility] [place] falls [facility] - [facility]ics Tremor of Tremor of Problem Active [facility] both hands both hands Rupali kes - Memoria l [facility]ics Cardiomyop Cardiomyop Problem Active [facility] athy athy [facility] - [facility] Coronary Coronary Problem Active [facility] artery artery [facility] - disease disease Memoria involving involving l [place] [facility] coronary coronary ent artery of artery of Clin ics [place] heart, heart, angina angina presence presence unspecifie unspecifie d d CAD CAD Problem Active [facility] (coronary (coronary Luke s - artery artery Memoria disease) disease) l [facility] Clinics Primary Primary Problem Active [facility] osteoarthr osteoarthr Rupali kes - itis of itis of [facility] right knee right knee l [facility] Body mass Body mass Problem Active [facility] index index [facility] - (BMI) of (BMI) of [facility] 40.0-44.9 40.0-44.9 l in adult in adult Outcat i ent Clinics Constipati Constipati Problem Active [facility] on, on, [facility]ukes - unspecifie unspecifie Me moria d d l constipati constipati Ou tpati on type on type ent Clinics Swelling Swelling Problem Active [facility] of left of left [facility] - lower lower Memoria extremity extremity l [facility]ics Left foot Left foot Problem Active [facility] pain pain [facility] - [facility] Left leg Left leg Problem Active [facility] pain pain [facility] - [facility] Bruising Bruising Problem Active [facility]ics Hematoma Hematoma Problem Active [facility] of left of left [facility] - lower lower Memoria extremity, extremity, l subsequent subsequent Ou tpati encounter encounter ent Clinics Right leg Right leg Problem Active [facility] pain pain [facility] Clin[facility] Status Status Problem Active [facility] post fall post fall [facility] - [facility] Clinics Mold Mold Problem Active [facility] exposure exposure [facility]ics Asthma, Asthma, Problem Active [facility] unspecifie unspecifie Rupali kes - d asthma d asthma Memori a severity, severity, l unspecifie unspecifie Ou tpati d whether d whether ent complicate complicate Cl inics d, d, unspecifie unspecifie d whether d whether persistent persistent Dizziness Dizziness Problem Active [facility] Clinics Allergies, Adverse Reactions, Alerts Allergy Allergy Status Severity Reaction(s) Onset Inactive Treating Comm ents Source Name Type Date Date Clinician PENICILL Allergy Active [place] to da substanc Medical e Group penicill Adverse Active Info Not [facility] in Reaction Available [facility] ent Clinics Social History Social Habit Start Date Stop Date Quantity Comments Source Sex Assigned At [facility] Smoking Status Start Date Stop Date Source Former Smoker [facility] Medications Ordered Filled Start Stop Current Ordering Indication Dosage Frequency Signature Comments Components Source Medication Medication Date Date Medication? Clinician (SIG) Name Name methocarbam methocarbam No 2 Q6H methocarba [place] ol 500 mg ol 500 mg 9-24 mol 500 mg da tablet Take tablet Take 00:00: tablet Medical 2 tablets 2 tablets 00 Take 2 Adela up every 6 every 6 tablets hours by hours by every 6 oral route. oral route. hours by oral route. Blood Blood 2018-05 Yes Kilo as [facility] [...] [facility] Macario Macario Yes Kilo [address] Aspirin EC Aspirin EC Hernandez Rupali kes - Low Dose Low Dose Memoria l [facility] ent Clinics Lisinopril Lisinopril Yes Kilo [address] [facility] Furosemide Furosemide Yes Kilo [address] [facility] [address] [facility] Clinics Coreg Coreg Yes Kilo [address] [facility]ics Metformin Metformin Yes Kilo [address] HCl HCl Hernandez with meals [facility] ent Clinics Entresto Entresto Yes Kilo [address] 49/51mg 49/51mg David Jenkisn - Juju l Outpati ent Clinics albuterol albuterol No albuterol [place] sulfate HFA sulfate HFA sulfate da 90 90 HFA 90 Medical mcg/actuati mcg/actuati mcg/actuat Group on aerosol on aerosol ion inhaler inhaler aerosol inhaler aspirin 81 aspirin 81 No 1 Q1D aspirin 81 [place] mg tablet mg tablet mg tablet da Take 1 Take 1 Take 1 Medical tablet tablet tablet Group every day every day every day by oral by oral by oral route. route. route. Breo Breo No Breo [place] Ellipta 200 Ellipta 200 Ellipta da mcg-25 mcg-25 200 mcg-25 Medic al mcg/dose mcg/dose mcg/dose Adela up powder for powder for powder for inhalation inhalation inhalation carvedilol carvedilol No carvedilol [place] 12.5 mg 12.5 mg 12.5 mg da tablet TAKE tablet TAKE tablet Medical 1 TABLET BY 1 TABLET BY TAKE 1 Group MOUTH ONCE MOUTH ONCE TABLET BY DAILY FOR DAILY FOR MOUTH ONCE 90 DAYS 90 DAYS DAILY FOR 90 DAYS clindamycin clindamycin No clindamyci [place] HCl 150 mg HCl 150 mg n HCl 150 da capsule capsule mg capsule Med ical TAKE FOUR TAKE FOUR TAKE FOUR Group CAPSULES BY CAPSULES BY CAPSULES MOUTH 30 60 MOUTH 30 60 BY MOUTH MINUTES MINUTES 30 60 PRIOR TO PRIOR TO MINUTES DENTAL DENTAL PRIOR TO APPOINTMENT APPOINTMENT DENTAL APPOINTMEN T Entresto 49 Entresto 49 No Entresto [place] mg-51 mg mg-51 mg 49 mg-51 da tablet tablet mg tablet Medica l Group furosemide furosemide No furosemide [place] 40 mg 40 mg 40 mg da tablet tablet tablet Medical Group glimepiride glimepiride No glimepirid [place] 2 mg tablet 2 mg tablet e 2 mg da TAKE 1 TAKE 1 tablet Medical TABLET BY TABLET BY TAKE 1 Adela up MOUTH ONCE MOUTH ONCE TABLET BY DAILY FOR DAILY FOR MOUTH ONCE 90 DAYS 90 DAYS DAILY FOR 90 DAYS ipratropium ipratropium No ipratropiu [facility] bromide bromide m bromide da 0.03 % 0.03 % 0.03 % Medical nasal spray nasal spray nasal Group USE 2 USE 2 spray USE SPRAY(S) IN SPRAY(S) IN 2 SPRAY(S) EACH EACH IN EACH NOSTRIL NOSTRIL NOSTRIL TWICE DAILY TWICE DAILY TWICE DAILY Klor-Con Klor-Con No 1 Q1D Klor-Con [facility] M20 mEq M20 mEq M20 mEq da tablet,exte tablet,exte tablet,ext Medical nded nded ended Group release release release Take 1 Take 1 Take 1 tablet tablet tablet every day every day every day by oral by oral by oral route. route. route. metformin metformin No metformin [facility] 500 mg 500 mg 500 mg da tablet tablet tablet Medical Group omeprazole omeprazole No omeprazole [place] 40 mg 40 mg 40 mg da capsule,del capsule,del capsule,de Medical ayed ayed layed Group release release release Take 1 Take 1 Take 1 capsule capsule capsule every day every day every day by oral by oral by oral route for route for route for 30 days. 30 days. 30 days. OneTouch OneTouch No OneTouch [facility] Delica Plus Delica Plus Delica da Lancet 33 Lancet 33 Plus Medic al gauge gauge Lancet 33 Group gauge OneTouch OneTouch No OneTouch [facility] Ultra Blue Ultra Blue Ultra Blue da Test Strip Test Strip Test Strip Medical Group OneTouch OneTouch No OneTouch [facility] Ultra2 Ultra2 Ultra2 da Meter Meter Meter Medical Group Klor-Con 10 Klor-Con 10 2019- No Kilo [address] [facility] 05-23 [facility] - 00:00 Memoria :00 Outpati ent Clinics Vital Signs Vital Name Observation Time Observation Value Comments Source BP Diastolic 2020-05-31 00:00:00 79 mm[Hg] [facility] Height 2020-05-31 00:00:00 61 [in_i] [facility] BMI (Body Mass 2020-05-31 00:00:00 49.3 kg/m2 [facility] 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) Group BP Systolic 2020-05-31 00:00:00 116 mm[Hg] [facility] Body Weight 2020-05-31 00:00:00 260.7 [lb_av] [facility] BP Diastolic 2020-03-07 00:00:00 66 mm[Hg] [facility] Height 2020-03-07 00:00:00 61 [in_i] [facility] BMI (Body Mass 2020-03-07 00:00:00 49.4 kg/m2 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) Group BP Systolic 2020-03-07 00:00:00 115 mm[Hg] [facility] Body Weight 2020-03-07 00:00:00 261.5 [lb_av] [facility] Procedures Procedure Date / Time Performing Clinician Source Performed Automatic Defibrillator [facility] Plan of Care Planned Activity Planned Date Details Comments Source Future Scheduled 2020-05-[address] [facility] 00:00:00 (12+) [code = Medical Center DEPRESSION SCREENING (12+)] Future Scheduled 2020-01-[address] [facility] - Test 00:00:00 (#1) [code = Medical Center INFLUENZA VACCINE (#1)] Future Scheduled 2018-05-[address] [facility] - Test 00:00:00 WELLNESS (YEAR 2 or Medical Center FIRST YEAR if no IPPE) [code = MEDICARE ANNUAL WELLNESS (YEAR 2 or FIRST YEAR if no IPPE)] Future Scheduled 2012-01-30 SHINGLES VACCINES ([address] [facility] - Test 00:00:00 of 2) [code = Medical Center SHINGLES VACCINES (1 of 2)] Future Scheduled [address] - Test 00:00:00 (procedure) [code = Medical Center [id number]] Future Scheduled 1981 DTAP/TDAP/TD VACCINES [facility] Test 00:00:00 (1 - Tdap) [code = Medical C enter DTAP/TDAP/TD VACCINES (1 - Tdap)] Future Scheduled 1980-01-30 HEPATITIS C SCREENING [facility] Test 00:00:00 [code = HEPATITIS C Medical Center SCREENING] Future Scheduled [address] [facility] - Test 00:00:00 malignant neoplasm of Medica l Center colon (procedure) [code = 638277927] Encounters Start End Encounter Admission Attending Care Care Encounter Source Date/Time Date/Time Type Type Clinicians Facility Department ID 2020-05-31 2020-05-31 SHUN Garcia [place] - [id number] [facility] 00:00:00 00:00:00 : Ck [facility] [address], [facility], [place] [id number] , Ph. 2020-03-07 2020-03-07 Mansoor BenavidesSHUN [place] - [id number] [facility] 00:00:00 00:00:00 MD: 600 [facility] [address], [facility], [place] [id number] , Ph. 2019-12-27 2019-12-27 [facility] [id number] [facility] [address] 11:15:00 11:15:00 t [employer] [facility] Medicine Outpati ent Clinics 2019-12-27 2019-12-27 [facility] [id number] 09:19:00 09:19:[address] [facility] Medicine Outpati ent Clinics 2019-10-26 2019-10-26 [facility] [id number] [address] 08:15:00 08:15:[address] [facility] Medicine Outpati ent Clinics 2019-10-20 2019-10-20 [facility] [id number] [address] 23:40:00 23:40:00 [facility] Medicine Outpati ent Clinics 2019-10-20 2019-10-20 [facility] [id number] 14:40:00 14:40:[address] [facility] Medicine Outpati ent Clinics 2019-08-19 2019-08-19 [facility] [id number] [address] 11:54:00 11:54:[address] [facility] Medicine Outpati ent Clinics 2019-07-25 2019-07-25 [facility] [id number] 13:11:00 13:11:[address] [facility] Medicine Outpati ent Clinics 2019-07-20 2019-07-20 [facility] [id number] [address] 11:00:00 11:00:[address] [facility] Medicine Outpati ent Clinics 2019-04-24 2019-04-24 [facility] [id number] 03:26:00 03:26:00 [facility] Medicine Outpati ent Clinics 2019-04-20 2019-04-20 [facility] [id number] [address] 09:40:00 09:40:00 [facility] Medicine Outpati ent Clinics 2019-03-22 2019-03-22 Outpatient zzzAmy zzzPetty [id number] [facility] 14:55:00 14:55:[address] [facility] Outpati ent Clinics 2019-02-12 2019-02-12 Office [facility] [id number] 10:42:57 11:02:57 Visit Tom Kye AMBULATOR [id number] 2019-01-19 2019-01-19 [facility] [id number] 14:40:00 14:40:00 [facility] Outpati ent Clinics 2018-11-04 2018-11-04 [facility] [id number] 12:03:00 12:03:00 [facility] Medicine Outpati ent Clinics 2018-08-26 2018-08-26 [facility] [id number] [address] 11:20:00 11:20:00 [facility] Medicine Outpati ent Clinics 2018-08-14 2018-08-14 [facility] [id number] 14:30:00 14:30:00 [facility] Medicine Outpati ent Clinics 2018-08-03 2018-08-03 [facility] [id number] 12:32:00 12:32:[address] [facility] Medicine Outpati ent Clinics 2018-06-01 2018-06-01 [facility] [id number] [facility] [address] 10:15:00 10:15:[address] [facility] Medicine Outpati ent Clinics 2018-03-02 2018-03-02 [facility] [id number] [address] 09:00:00 09:00:[address] [facility] Medicine Outpati ent Clinics 2018-01-30 2018-01-30 [facility] [id number] 11:30:00 11:30:[address] [facility] Medicine Outpati ent Clinics 2018-01-20 2018-01-20 [facility] [id number] 09:46:00 09:46:[address] [facility] Medicine Outpati ent Clinics 2018-01-13 2018-01-13 [facility] [id number] 10:00:00 10:00:00 t [facility] - [facility] ent Clinics 2017-12-25 2017-12-25 [facility] [id number] 10:56:00 10:56:[address] [facility] Medicine Outpati ent Clinics 2017-12-09 2017-12-09 [facility] [id number] 21:03:00 21:03:[address] [facility] Medicine Outpati ent Clinics 2017-12-09 2017-12-09 [facility] [id number] 09:45:00 09:45:[address] [facility] Medicine Outpati ent Clinics 2017-12-03 2017-12-03 [facility] [id number] 10:45:00 10:45:[address] [facility] Medicine Outpati ent Clinics 2017-09-05 2017-09-05 [facility] [id number] [facility] 16:00:00 16:00:00 t [facility] l Outpati ent Clinics 2017-07-11 2017-07-11 Outpatient C IVONNE, [facility] MED [id number] [facility] 17:58:00 17:58:00 JACQUI Results Test Description Test [...] (NOTE)RISK OF HEART LDLC) DISEASEPublishe d by [place] Heart AssociationAnal yte Optimal Boderline Increased R iskCHOL <200 200-239 >240TRIG <150 150-199 >200HDL Male: >60 <40HDL Female: & gt;60 <50LDL <100 130- 159 >160LDL NEAR OPTIMAL IS 100- 129 VLDL (test code = VLDL) 15 mg/dL 5-40 N LDL/HDL (test code = LDLPHDL) 2 Comprehensive Metabolic [id number] 22:09:00 Test Item Value Reference Range Interpretation [...] by the National Kidney Foundation,http ://nkd ep.nih.gov [id number] 22:05:00 Test Item Value Reference Range Interpretation Comments NT ProBnp (test code = PBNP) 1920 pg/mL 0-124 H CBC with [id number] 18:24:00 Test Item Value Reference Range Interpretation [...] code = ALYMPH) 1.4 K/cumm 0.5-4.6 N Dukes Abs (test code = AMONO) 0.3 K/cumm 0.0-1.2 N Eos Abs (test code = AEOS) 0.09 K/cumm 0.00-0.74 N Baso Abs (test code = ABASO) 0.0 K/cumm 0.00-0.21 N
[2020-07-14 10:44] LABS: Absolute Lymphocytes (CBC) 1.6 K/uL (0.7-4.9); Hematocrit 38.3 % (36.0-45.0); Lymphocytes % 29.7 % (15.3-44.8); MPV 10.7 fL (7.6-11.3); RBC Red Blood Cell Count 4.64 M/uL (3.86-4.86)
[2020-07-14 10:45] LABS: Protime INR 1.09
[2020-07-14] MEDS ORDERED: MECLIZINE HCL 12.5 MG TAB ONE (11:03)
[2020-07-14] MEDS ORDERED: FUROSEMIDE 40 MG/4 ML VIAL ONE (11:03)
--- NOTE | 2020-07-14 11:11 | RAD REPORT ---
EXAM DESCRIPTION: CT - Head Brain Wo Cont - 07/14/2020 11:03 am CLINICAL HISTORY: Dizziness;Headache, hypertension COMPARISON: HEAD BRAIN W O CONTRAST dated 04/07/2007 TECHNIQUE: Axial 5 mm thick images of the head were obtained without IV contrast. All CT scans are performed using dose optimization technique as appropriate and may include automated exposure control or mA/KV adjustment according to patient size. FINDINGS: No intracranial hemorrhage, mass, edema or shift of mid-line structures. No acute infarcti on changes seen. No measurable atrophy or chronic ischemic change identified. Ventricles are normal. Mastoid air cells are clear. Mucosal thickening is present in the left frontal, bilateral ethmoid and sphenoid sinuses. Maxillary sinuses are only partially imaged but show mucosal thickening and sclero tic changes to the capps of would indicate chronic maxillary sinusitis. No acute bony findings. IMPRESSION: No intracranial abnormality is identified. Paranasal sinus mucosal thickening present and there is evidence for chronic bilateral maxillary sinu sitis.
[2020-07-14 11:18] LABS: ALT/SGPT 31 U/L (12-78); AST/SGOT 14 U/L (15-37); Albumin 3.9 g/dL (3.4-5.0); Alkaline Phosphatase 71 U/L (45-117); BUN Blood Urea Nitrogen 18 mg/dL (7-18); Bicarbonate 27 mmol/L (21-32); Bilirubin Direct 0.2 mg/dL (0-0.2); Bilirubin Total 0.7 mg/dL (0.2-1.0); Glucose Level 101 mg/dL (74-106); Magnesium 1.9 mg/dL (1.8-2.4); NT PRO-BNP 1591 pg/mL (<125); Potassium 3.6 mmol/L (3.5-5.1); Protein, Total 7.9 g/dL (6.4-8.2); Sodium Level 142 mmol/L (136-145); Troponin (Emerg Dept Use Only) < 0.02 ng/mL (0.0-0.045)
--- NOTE | 2020-07-14 11:58 | RAD REPORT ---
EXAM DESCRIPTION: RAD - Chest Single View - 07/14/2020 11:12 am CLINICAL HISTORY: CHEST PAIN COMPARISON: December 2019, September 2019 TECHNIQUE: AP portable chest image was obtained 07/14/2020 11:12 am . FINDINGS: No peripheral mass or consolidation. Interstitial pattern is mildly prominent believed to be baseline for the patient. No measurable failure or volume overload. Pacemaker is in place. Heart a nd vasculature are normal. No measurable pleural effusion and no pneumothorax. No acute bony abnormal ity seen. No acute aortic findings suspected. IMPRESSION: No acute cardiopulmonary process.
[2020-07-14] MEDS ORDERED: ACETAMINOPHEN 500 MG TAB ONE (14:17)
[2020-07-14 15:15] LABS: SARS-COV-2 RT PCR NEGATIVE (NEGATIVE)
--- NOTE | 2020-07-14 15:31 | ER ---
Nurse's Notes [facility] Name: Sukh York Age: 60 yrs Sex: Female : 1960 Arrival Date: 07/14/2020 Time: 10:20 Bed 2 Private MD: Diagnosis: Chest pain, unspecified;Shortness of breath Presentation: 07/14 10:21 Chief complaint: EMS states: Toned out for CP, started last night about 2300, woke this jl7 morning with continued pain. Nitro SL x 1 given, pain decreased. Pt reports pain was sharp, non-radiating, with pressure and SOB. Coronavirus screen: Client denies travel out of the [place] in the last 14 days. At this time, the client does not indicate any symptoms associated with coronavirus-19. Ebola Screen: No symptoms or risks identified at this time. Initial Sepsis Screen: Does the patient meet any 2 criteria? No. Patient's initial sepsis screen is negative. Does the patient have a suspected source of infection? No. Patient's initial sepsis screen is negative. Risk Assessment: Do you want to hurt yourself or someone else? Patient reports no desire to harm self or others. Onset of symptoms was July 13, 2020 at 23:00. Care prior to arrival: Medication(s) given: Nitro SL x 1 IV initiated. 18 GA, in the right antecubital area, Glucose check: 155. Transition of care: patient was not received from another setting of care. 10:21 Method Of Arrival: EMS: [facility] jl7 10:21 Acuity: RADHA 2 jl7 Triage Assessment: 10:34 General: Appears in no apparent distress. uncomfortable, Behavior is calm, cooperative, jl7 appropriate for age. Pain: Complains of pain in anterior aspect of left upper chest Pain does not radiate. Pain currently is 0 out of 10 on a pain scale. at worst was 8 out of 10 on a pain scale. Quality of pain is described as pressure, sharp, Pain began 2300 last night Is continuous. Neuro: Level of Consciousness is awake, alert, obeys commands, Oriented to person, place, time, situation. Cardiovascular: Patient's skin is warm and dry. Rhythm is sinus rhythm. Respiratory: Airway is patent Respiratory effort is even, unlabored, Respiratory pattern is regular, symmetrical. Derm: Skin is pink, warm \T\ dry. Historical: - Allergies: 10:34 PENICILLINS; jl7 - Home Meds: 10:34 furosemide 40 mg Oral tab 1 tab once daily [Active]; metformin 500 mg Oral tab 1 tab jl7 twice a day [Active]; Klor-Con 20 mEq daily Oral [Active]; aspirin 81 mg Oral chew once daily [Active]; Breo Ellipta inhalation [Active]; carvedilol 12.5 mg Oral tab 1 tab daily [Active]; Entresto 49-51 mg Oral tab 1 tab 2 times per day [Active]; glimepiride 2 mg Oral tab 1 tab once daily [Active]; - PMHx: 10:34 CHF; COPD; Diabetes - NIDDM; Hypertension; jl7 - PSHx: 10:34 defibrillator; jl7 - Immunization history:: Adult Immunizations unknown. - Social history:: Smoking status: Patient denies any tobacco usage or history of. Screenin:37 Abuse screen: Denies threats or abuse. Denies injuries from another. Nutritional jl7 screening: No deficits noted. Tuberculosis screening: No symptoms or risk factors identified. Fall Risk IV access (20 points). Total Lo[place]on Fall Scale indicates No Risk (0-24 pts). Assessment: 10:20 General: See triage assessment. jl7 11:33 Reassessment: Patient appears in no apparent distress at this time. No changes from jl7 previously documented assessment. Patient and/or family updated on plan of care and expected duration. Pain level reassessed. Patient is alert, oriented x 3, equal unlabored respirations, skin warm/dry/pink. Pain: Denies pain. 12:38 Reassessment: Patient appears in no apparent distress at this time. No changes from jl7 previously documented assessment. Patient and/or family updated on plan of care and expected duration. Pain level reassessed. Patient is alert, oriented x 3, equal unlabored respirations, skin warm/dry/pink. 13:52 Reassessment: Pt requesting update, reports she wants to go home, feeling better. Dr. clifton Fowler notified and at bedside. 15:47 Reassessment: Patient appears in no apparent distress at this time. Patient and/or clifton family updated on plan of care and expected duration. Pain level reassessed. Patient is alert, oriented x 3, equal unlabored respirations, skin warm/dry/pink. Patient states symptoms have improved. Vital Signs: 10:21 BP 133 / 84; Pulse 62; Resp 17 S; Temp 97.9(TE); Pulse Ox 100% on R/A; Weight 117.93 jl7 kg; Height 5 ft. 1 in. (154.94 cm); Pain 0/10; 11:32 BP 113 / 83; Pulse 67; Resp 15; Pulse Ox 99% ; jl7 12:38 BP 117 / 96; Pulse 75; Resp 17; Pulse Ox 97% ; jl7 13:40 BP 120 / 75; Pulse 69; Resp 15; Pulse Ox 98% ; mt 14:52 BP 110 / 69; Pulse 69; Resp 15; Pulse Ox 98% ; jl7 15:47 BP 115 / 70; Pulse 60; Resp 15; Pulse Ox 99% ; Pain 0/10; jl7 10:21 Body Mass Index 49.13 (117.93 kg, 154.94 cm) jl7 ED Course: 10:20 Patient arrived in ED. jl7 10:21 Angel Fowler MD is Attending Physician. kdr 10:25 EKG done, by ED staff, reviewed by Angel Fowler MD. mt 10:32 Triage completed. jl7 10:34 Arm band placed on right wrist. jl7 10:37 Initial lab(s) drawn, by ED staff, sent to lab. Maintain EMS IV. Dressing intact. Good jl7 blood return noted. Site clean \T\ dry. Gauge \T\ site: 18 right AC. Patient maintains SpO2 saturation greater than 95% on room air. 10:37 Patient has correct armband on for positive identification. Placed in gown. Bed in low jl7 position. Call light in reach. Side rails up X2. monitor worker on. Pulse ox on. NIBP on. 10:44 Genaro Kelley RN is Primary Nurse. jl7 11:03 CT Head Brain wo Cont In Process Unspecified. EDMS 11:08 XRAY Chest (1 view) In Process Unspecified. EDMS 14:17 COVID swab sent to lab. Flu and/or RSV swab sent to lab. Strep swab sent to lab. jl7 15:51 No provider procedures requiring assistance completed. IV discontinued, intact, jl7 bleeding controlled, No redness/swelling at site. Pressure dressing applied. Administered Medications: 11:25 Drug: Lasix 40 mg Route: IVP; Site: right antecubital; jl7 12:00 Follow up: Response: No adverse reaction jl7 14:04 Drug: Tylenol 1000 mg Route: PO; jd3 15:00 Follow up: Response: No adverse reaction; Pain is decreased jl7 15:36 Not Given (Patient Refused): Meclizine 25 mg PO once jl7 Outcome: 15:30 Discharge ordered by . shani 15:51 Discharged to home ambulatory. jl7 15:51 Condition: stable 15:51 Discharge instructions given to patient, Instructed on discharge instructions, follow up and referral plans. medication usage, Demonstrated understanding of instructions, follow-up care, medications, Prescriptions given X 1. 15:51 Patient left the ED. jl7 Signatures: Dispatcher [employer] EDMS Angel Fowler MD MD kdr Leal, Jahala, RN RN jl7 Marci Grande mt, Jonathon, RN RN jd3
--- NOTE | 2020-07-14 15:31 | EDPHYS ---
Physician Documentation [facility] Name: Sukh York Age: 60 yrs Sex: Female : 1960 Arrival Date: 07/14/2020 Time: 10:20 Bed 2 Private MD: ED Physician Angel Fowler HPI: 07/14 14:04 This 60 yrs old Female presents to ER via EMS with complaints of Chest Pain > kdr 32 y/o. 14:04 The patient or guardian reports chest pain that is located primarily in the anterior kdr chest wall, left. Onset: suddenly, last night. The pain does not radiate. Associated signs and symptoms: Pertinent positives: headache. The chest pain is described as aching, dull, a pressure. Duration: The patient or guardian reports a single episode, that is still ongoing, but improving. Modifying factors: The symptoms are alleviated by nothing. the symptoms are aggravated by activity. Severity of pain: At its worst the pain was moderate in the emergency department the pain has improved markedly. EMS care prior to arrival includes: nitroglycerin, x 1, with partial relief of the chest pain. The patient has not experienced similar symptoms in the past. The patient has not recently seen a physician. The patient also c/o GONZALEZ and left face tingling and pain. Historical: - Allergies: 10:34 PENICILLINS; jl7 - Home Meds: 10:34 furosemide 40 mg Oral tab 1 tab once daily [Active]; metformin 500 mg Oral tab 1 tab jl7 twice a day [Active]; Klor-Con 20 mEq daily Oral [Active]; aspirin 81 mg Oral chew once daily [Active]; Breo Ellipta inhalation [Active]; carvedilol 12.5 mg Oral tab 1 tab daily [Active]; Entresto 49-51 mg Oral tab 1 tab 2 times per day [Active]; glimepiride 2 mg Oral tab 1 tab once daily [Active]; - PMHx: 10:34 CHF; COPD; Diabetes - NIDDM; Hypertension; jl7 - PSHx: 10:34 defibrillator; jl7 - Immunization history:: Adult Immunizations unknown. - Social history:: Smoking status: Patient denies any tobacco usage or history of. ROS: 14:04 Constitutional: Negative for fever, chills, and weight loss, Eyes: Negative for injury, kdr pain, redness, and discharge, Neck: Negative for injury, pain, and swelling, Cardiovascular: Negative for chest pain, palpitations, Respiratory: Negative for shortness of breath, cough, wheezing, and pleuritic chest pain, Abdomen/GI: Negative for abdominal pain, nausea, vomiting, diarrhea, and constipation, Back: Negative for injury and pain, MS/Extremity: Negative for injury and deformity, Skin: Negative for injury, rash, and discoloration, Neuro: Negative for headache, weakness, numbness, tingling, and seizure activity. Psych: Negative for depression, anxiety, suicide ideation, homicidal ideation, and hallucinations, Allergy/Immunology: Negative for hives, rash, and allergies. 14:04 Cardiovascular: Positive for edema, Negative for Exam: 14:04 Constitutional: This is a well developed, well nourished patient who is awake, alert, kdr and in no acute distress. Head/Face: Normocephalic, atraumatic. Eyes: Pupils equal round and reactive to light, extra-ocular motions intact. Lids and lashes normal. Conjunctiva and sclera are non-icteric and not injected. Cornea within normal limits. Periorbital areas with no swelling, redness, or edema. Neck: Trachea midline, no thyromegaly or masses palpated, and no cervical lymphadenopathy. Supple, full range of motion without nuchal rigidity, or vertebral point tenderness. No Meningismus. Chest/axilla: Normal chest wall appearance and motion. Nontender with no deformity. No lesions are appreciated. Respiratory: Lungs have equal breath sounds bilaterally, clear to auscultation and percussion. No rales, rhonchi or wheezes noted. No increased work of breathing, no retractions or nasal flaring. Abdomen/GI: Soft, non-tender, with normal bowel sounds. No distension or tympany. No guarding or rebound. No evidence of tenderness throughout. Back: No spinal tenderness. No costovertebral tenderness. Full range of motion. Skin: Warm, dry with normal turgor. Normal color with no rashes, no lesions, and no evidence of cellulitis. MS/ Extremity: Pulses equal, no cyanosis. Neurovascular intact. Full, normal range of motion. Neuro: Awake and alert, GCS 15, oriented to person, place, time, and situation. Cranial nerves II-XII grossly intact. Motor strength 5/5 in all extremities. Sensory grossly intact. Cerebellar exam normal. Normal gait. Psych: Awake, alert, with orientation to person, place and time. Behavior, mood, and affect are within normal limits. 14:04 Cardiovascular: Rate: normal, Rhythm: regular, Pulses: no pulse deficits are appreciated, Heart sounds: normal, Edema: 2+ edema to level of left midcalf, left ankle, left foot, right midcalf, right ankle and right foot, pedal edema, that is mild. 18:57 ECG was reviewed by the Attending Physician. [facility] Vital Signs: 10:21 BP 133 / 84; Pulse 62; Resp 17 S; Temp 97.9(TE); Pulse Ox 100% on R/A; Weight 117.93 jl7 kg; Height 5 ft. 1 in. (154.94 cm); Pain 0/10; 11:32 BP 113 / 83; Pulse 67; Resp 15; Pulse Ox 99% ; jl7 12:38 BP 117 / 96; Pulse 75; Resp 17; Pulse Ox 97% ; jl7 13:40 BP 120 / 75; Pulse 69; Resp 15; Pulse Ox 98% ; mt 14:52 BP 110 / 69; Pulse 69; Resp 15; Pulse Ox 98% ; jl7 15:47 BP 115 / 70; Pulse 60; Resp 15; Pulse Ox 99% ; Pain 0/10; jl7 10:21 Body Mass Index 49.13 (117.93 kg, 154.94 cm) jl7 MDM: 14:04 GUY Risk Score: 1 - Three or more CAD risk factors, [HTN], [DM]. Data reviewed: vital kdr signs, nurses notes, lab test result(s), EKG, radiologic studies. 15:30 Patient medically screened. [facility] 07/14 10:21 Order name: Basic Metabolic Panel; Complete Time: 13:32 [facility] 07/14 10:21 Order name: CBC with Diff; Complete Time: 13:32 [facility] 07/14 10:21 Order name: LFT's; Complete Time: 13:32 [facility] 07/14 10:21 Order name: Magnesium; Complete Time: 13:32 [facility] 07/14 10:21 Order name: NT PRO-BNP; Complete Time: 13: [facility] 07/14 10:21 Order name: PT-INR; Complete Time: 13:32 [facility] 07/14 10:21 Order name: Troponin (emerg Dept Use Only); Complete Time: 13:32 [facility] 07/14 10:21 Order name: XRAY Chest (1 view); Complete Time: 13:32 [facility] 07/14 13:57 Order name: COVID-19 : Document "Date of Symptom Onset" if Symptomatic. [facility] 07/14 13:57 Order name: Strep; Complete Time: 15:28 [facility] 07/14 14:26 Order name: Throat Culture [facility] 07/14 15:15 Order name: COVID-19/FLU A+B; Complete Time: 15:28 [facility] 07/14 10:21 Order name: EKG; Complete Time: 10: [facility] 07/14 10:21 Order name: Cardiac monitoring; Complete Time: : [facility] 07/14 10:21 Order name: EKG - Nurse/Tech; Complete Time: : [facility] 07/14 10:21 Order name: IV Saline Lock; Complete Time: : [facility] 07/14 10:21 Order name: Labs collected and sent; Complete Time: : [facility] 07/14 10:21 Order name: O2 Per Protocol; Complete Time: : [facility] 07/14 10:21 Order name: O2 Sat Monitoring; Complete Time: : [facility] 07/14 10:43 Order name: CT Head Brain wo Cont; Complete Time: 13:32 kdr EC:57 Rate is 67 beats/min. Rhythm is regular, Sinus Rhythm with No ectopy. Left axis kdr deviation noted. OK interval is normal. QRS interval is normal. QT interval is normal. Clinical impression: NSR w/ Non-specific ST/T Changes. Administered Medications: 11:25 Drug: Lasix 40 mg Route: IVP; Site: right antecubital; jl7 12:00 Follow up: Response: No adverse reaction jl7 14:04 Drug: Tylenol 1000 mg Route: PO; jd3 15:00 Follow up: Response: No adverse reaction; Pain is decreased jl7 15:36 Not Given (Patient Refused): Meclizine 25 mg PO once jl7 Disposition: 07/14/20 15:30 Discharged to Home. Impression: Chest pain, unspecified, Shortness of breath. - Condition is Stable. - Discharge Instructions: Shortness of Breath, [id number], Sinusitis, Adult, [id number]-[id number], Nonspecific Chest Pain, [id number]-[id number], Sinus Headache, [id number]. - Prescriptions for Levaquin 500 mg Oral Tablet - take 1 tablet by ORAL route once daily for 7 days; 7 tablet. - Medication Reconciliation Form, Thank You Letter form. - Family Work Release (07/14/20 16:03). jd3 - Follow up: Private Physician; When: 2 - 3 days; Reason: If symptoms return, Further diagnostic work-up, Recheck today's complaints, Continuance of care, Re-evaluation by your physician. - Problem is new. - Symptoms have improved. Signatures: Dispatcher [employer] EDNC Angel oFwler MD MD kdr Genaro Kelley RN RN jl7 Иван Bianchi RN RN jd3 Corrections: (The following items were deleted from the chart) 14:30 13:58 CORONAVIRUS ordered. [facility] EDNC 14:30 13:58 Influenza Screen (A \\T\\ B)+[id number].BRZ ordered. [facility] EDMS 15:51 15:30 07/14/2020 15:30 Discharged to Home. Impression: Chest pain, unspecified; jl7 Shortness of breath. Condition is Stable. Forms are Medication Reconciliation Form, Thank You Letter, Antibiotic Education, Prescription Opioid Use. Follow up: Private Physician; When: 2 - 3 days; Reason: If symptoms return, Further diagnostic work-up, Recheck today's complaints, Continuance of care, Re-evaluation by your physician. Problem is new. Symptoms have improved. kdr
[2020-07-14 16:09] VITALS: TEMP 97.9
[2020-07-14 16:16] VITALS: BP 115/70; O2SAT 99
--- NOTE | 2020-07-15 07:57 | EKG ---
Test Date: 2020-07-14 Test Time: 10:20:56 Head Of Marketing: LUCHO MEASUREMENT RESULTS: Intervals: Rate: 67 ND: 178 QRSD: 136 QT: 408 QTc: 431 Nahma: P: 62 ND: 178 QRS: -34 T: 107 INTERPRETIVE STATEMENTS: Normal sinus rhythm Left axis deviation Left ventricular hypertrophy with QRS widening and repolarization abnormality Abnormal ECG Compared to ECG 01/07/2020 05:04:09 No significant changes Electronically Signed On 07-15-20 07:54:30 [employer] by Jose Alberto Mac
== END 2020-07-14 15:51 | disposition home or self-care (01) ==
LOC: ER 10:15
DX: R07.89 Other chest pain (principal); R06.02 Shortness of breath; R51.9 Headache, unspecified; I10 Essential (primary) hypertension; I50.9 Heart failure, unspecified; E11.9 Type 2 diabetes mellitus without complications; J44.9 Chronic obstructive pulmonary disease, unspecified; Z20.822 Contact with and (suspected) exposure to COVID-19; Z95.810 Presence of automatic (implantable) cardiac defibrillator; Z79.82 Long term (current) use of aspirin; Z88.0 Allergy status to penicillin
CPT/HCPCS: 93005; 87070; 85025; 80048; 36415; 83735; 85610; 80076; 87081; 84484; 83880; 0240U; 70450; 71045; 96374; 99285; J1940

== ENCOUNTER 2020-08-21 11:39 | Emergency (ER) | payer OTHER ==
--- OUTSIDE RECORDS SUMMARY | 2020-08-21 11:42 | XMS REPORT | Continuity of Care Document ---
:1960 Author Organization [facility] t Address [address] [place] [address] Care Team Providers Name Role Phone IVONNE [...] St edema edema [facility] Pain in Pain in Problem Active [facility] right hand right hand Rupali kes - [facility] Outpati ent Clinics BMI BMI Problem Active [facility] 45.0-49.9, 45.0-49.9, Rupali kes - adult adult Memoria l [facility] Morbid Morbid Problem Active [facility] (severe) (severe) [facility] - obesity obesity Memoria due to due to l excess excess [facility] calories calories ent Clinics Varicose Varicose Problem Active [facility] veins of veins of [facility] - bilateral bilateral Andres jorge l lower lower l extremitie extremitie Ou tpati s with s with ent pain pain Clinics Depression Depression Problem Active [facility] Diabetes Diabetes Problem Active [facility] type 2, type 2, [facility] - controlled controlled Me moria l [facility] Clinics Peripheral Peripheral Problem Active [facility] vascular vascular [facility] disease [facility] Other Other Problem Active [facility] chronic chronic [facility] - pain pain [facility] Pain in Pain in Problem Active [facility] right knee right knee [facility]ali kes - [facility] Hypertensi Hypertensi Problem Active [facility] on, on, [facility] - unspecifie unspecifie Me moria d type d type l [facility]ics Shortness Shortness Problem Active [facility] of breath of breath Luke s - [facility] Heart Heart Problem Active [facility] disease disease [facility] - [facility] l [facility]ics Acute pain Acute pain Problem Active [facility] of left of left [facility] - shoulder shoulder Memori a l [facility] Neck pain Neck pain Problem Active [facility] Acute Acute Problem Active [facility] nonintract nonintract Rupali kes - able able Memoria headache, headache, l unspecifie unspecifie Ou tpati d headache d headache en t type type Clinics Chest Chest Problem Active [facility] pain, pain, [facility] - unspecifie unspecifie Me moria d type d type l [facility]ics Congestive Congestive Problem Active [facility] heart heart [facility] - failure failure Memoria l [facility]ics Varicose Varicose Problem Active [facility] veins of veins of [facility] - both lower both lower Me moria extremitie extremitie l s, s, [facility] unspecifie unspecifie en t d whether d whether Clin ics complicate complicate d d Polyarthra Polyarthra Problem Active [facility] lgia lgia [facility] Frequent Frequent Problem Active [facility] [place] [facility] Tremor of Tremor of Problem Active [facility] both hands both hands Rupali kes - [facility] Cardiomyop Cardiomyop Problem Active [facility] athy athy [facility] Coronary Coronary Problem Active [facility] artery artery [facility] - disease disease Memoria involving involving l [place] [facility] coronary coronary ent artery of artery of Clin ics [place] heart, heart, angina angina presence presence unspecifie unspecifie d d CAD CAD Problem Active [facility] (coronary (coronary Luke s - artery artery Memoria disease) disease) l [facility] Primary Primary Problem Active [facility] osteoarthr osteoarthr Rupali kes - itis of itis of [facility] right knee right knee l [facility] Body mass Body mass Problem Active [facility] index index [facility] - (BMI) of (BMI) of [facility] 40.0-44.9 40.0-44.9 l in adult in adult Outpat i ent Clinics Constipati Constipati Problem Active [facility] on, on, [facility] - unspecifie unspecifie Me moria d d l constipati constipati Ou tpati on type on type ent Clinics Swelling Swelling Problem Active [facility] of left of left [facility] - lower lower Memoria extremity extremity l [facility]ics Left foot Left foot Problem Active [facility] pain pain [facility] Left leg Left leg Problem Active [facility] pain pain [facility] Bruising Bruising Problem Active [facility] Hematoma Hematoma Problem Active [facility] of left of left [facility] - lower lower Memoria extremity, extremity, l subsequent subsequent Ou tpati encounter encounter ent Clinics Right leg Right leg Problem Active [facility] pain pain [facility] Status Status Problem Active [facility] post fall post fall Luke s - Memoria l [facility] Mold Mold Problem Active [facility] exposure exposure [facility] Asthma, Asthma, Problem Active [facility] unspecifie unspecifie Rupali kes - d asthma d asthma Memori a severity, severity, l unspecifie unspecifie Ou tpati d whether d whether ent complicate complicate Cl inics d, d, unspecifie unspecifie d whether d whether persistent persistent Dizziness Dizziness Problem Active [facility] Allergies, Adverse Reactions, Alerts Allergy Allergy Status Severity Reaction(s) Onset Inactive Treating Comm ents Source Name Type Date Date Clinician PENICILL Allergy Active [facility] penicill Adverse Active Info Not [facility] in Reaction Available [facility] Social History Social Habit Start Date Stop Date Quantity Comments Source Sex Assigned At [facility] Smoking Status Start Date Stop Date Source Former Smoker [facility] Medications Ordered Filled Start [...] route. oral route. hours by oral route. Lancets Lancets 2018-05 Yes [facility]ilo as [facility] 2-03 [facility] directed [facility] - 00:00: (dispense Memoria 00 lancets l formulary Outpati to ent insurance) Clinics Blood Blood 2018-05 Yes [facility]ilo as [facility] Glucose Glucose 2-03 Hernandez directed Luke s - Test Strip Test Strip 00:00: (DISPENSE Memoria 00 BLOOD l GLUCOSE Outpati TEST ent STRIPS Clinics FORMULARY TO INSURANCE) Blood Blood 2018-05 Yes Kilo as [facility] Glucose Glucose 2-03 Hernandez directed Luke s - Monitor Monitor 00:00: (DISPENSE Me moria 00 BLOOD l GLUCOSE Outpati MONITOR ent FORMULARY Clinics TO INSURANCE) Glimepiride Glimepiride Yes [facility] [address] [facility] Hernandez [facility] Macario Macario Yes Kilo [address] [address] Aspirin EC Aspirin EC Hernandez Rupali kes - Low Dose Low Dose Memoria [facility] ent Clinics Lisinopril Lisinopril Yes Kilo [address] [facility] Hernandez [facility] Furosemide Furosemide Yes Kilo [address] [facility] [address] Hernandez in am [facility] - Memoria [facility] ent Clinics Coreg Coreg Yes Kilo [address] [facility] Hernandez [facility] - [facility] Metformin Metformin Yes Kilo [address] HCl HCl Hernandez with meals [facility] ent Clinics Entresto Entresto Yes Kilo [address] 49/51mg 49/51mg Hernandez [place] - Memoria l Outpati ent Clinics albuterol albuterol No [...] [facility] Klor-Con 10 Klor-Con 10 No Kilo [address] 05-23 [facility] Mem[facility] :[facility] l Outpati ent Clinics Vital Signs Vital Name Observation Time Observation Value Comments Source BP Diastolic 2020-05-31 00:00:00 79 mm[Hg] [facility] Height 2020-05-31 00:00:00 61 [in_i] [facility] BMI (Body Mass 2020-05-31 00:00:00 49.3 kg/m2 [facility] [employer] [facility]) [facility] BP Systolic 2020-05-31 00:00:00 116 mm[Hg] [facility] Body Weight 2020-05-31 00:00:00 260.7 [lb_av] [facility] BP Diastolic 2020-03-07 00:00:00 66 mm[Hg] [facility] Height 2020-03-07 00:00:00 61 [in_i] [facility] BMI (Body Mass 2020-03-07 00:00:00 49.4 kg/m2 [facility] [employer] [facility]) [facility] BP Systolic 2020-03-07 00:00:00 115 mm[Hg] [facility] Body Weight 2020-03-07 00:00:00 261.5 [lb_av] [facility] Procedures Procedure Date / Time Performing Clinician Source Performed Automatic Defibrillator [facility] Cholecyst[facility] Plan of Care Planned [...] Test 00:00:00 (procedure) [code = Medical Center 25719650] Future Scheduled 1981 DTAP/TDAP/TD VACCINES [facility] I [...] Medica l Center colon (procedure) [code = 276269544] Encounters Start End Encounter Admission Attending Care Care Encounter Source Date/Time Date/Time Type Type Clinicians Facility Department ID 2020-05-31 2020-05-31 SHUN Garcia [place] - [id number] [facility] 00:00:00 00:00:00 : [facility] [address], [facility], [place]B [id number] , Ph. 2020-03-07 2020-03-07 Mansoor Benavides MMRonda [place] - [id number] [facility] 00:00:00 00:00:00 MD: [facility] [address], [facility], [place]derek[place] [id number] , Ph. 2019-12-27 2019-12-27 [facility] [id number] [facility] 11:15:00 11:15:00 [facility]jour [facility] Medicine Outpati ent Clinics 2019-12-27 2019-12-27 [facility] [id number] [facility] 09[facility]19:00 09:19:00 [facility] Medicine Outpati ent Clinics 2019-10-26 2019-10-26 [facility] [id number] 08[facility]15:00 08:15:00 [facility] Medicine Outpati ent Clinics 2019-10-20 2019-10-20 [facility] [id number] 23:40:00 23:40:00 [facility] Medicine Outpati ent Clinics 2019-10-20 2019-10-20 [facility] [id number] 14:40:00 14:40:00 [facility] Medicine Outpati ent Clinics 2019-08-19 2019-08-19 [facility] [id number] 11:54:00 11:54:00 [facility] Medicine Outpati ent Clinics 2019-07-25 2019-07-25 [facility] [id number] 13:11:00 13:11:00 [facility] Medicine Outpati ent Clinics 2019-07-20 2019-07-20 [facility] [id number] [address] 11:00:00 11:00:00 [facility] Medicine Outpati ent Clinics 2019-04-24 2019-04-24 [facility] [id number] 03:26:00 03:26:00 [facility] Medicine Outpati ent Clinics 2019-04-20 2019-04-20 [facility] [id number] 09:40:00 09:40:00 [facility] Medicine Outpati ent Clinics 2019-03-22 2019-03-22 Outpatient mayelazzPetty Kim [id number] [facility] 14:55:00 14:55:00 Yanick Herndon [facility] Outpati ent Clinics 2019-02-12 2019-02-12 Office [facility] [id number] 10:42:57 11:02:57 Visit Tom Fishman AMBULATOR [id number] 2019-01-19 2019-01-19 [facility] [id number] [address] 14:40:00 14:40:00 [facility] Outpati ent Clinics 2018-11-04 2018-11-04 [facility] [id number] [address] 12:03:00 12:03:00 [facility] Medicine Outpati ent Clinics 2018-08-26 2018-08-26 [facility] [id number] [address] 11:20:00 11:20:00 [facility] Medicine Outpati ent Clinics 2018-08-14 2018-08-14 [facility] [id number] 14:30:00 14:30:00 [facility] Medicine Outpati ent Clinics 2018-08-03 2018-08-03 [facility] [id number] 12:32:00 12:32:00 t [facility] Medicine Outpati ent Clinics 2018-06-01 2018-06-01 [facility] [id number] 10:15:00 10:15:00 t [facility] Medicine Outpati ent Clinics 2018-03-02 2018-03-02 [facility] [id number] 09:00:00 09:00:00 t [facility] Medicine Outpati ent Clinics 2018-01-30 2018-01-30 [facility] [id number] [address] 11:30:00 11:30:00 t [facility] Medicine Outpati ent Clinics 2018-01-20 2018-01-20 [facility] [id number] 09:46:00 09:46:00 t [facility] Medicine Outpati ent Clinics 2018-01-13 2018-01-13 [facility] [id number] [address] 10:00:00 10:00:00 t [facility] - [facility] Clinics 2017-12-25 2017-12-25 [facility] [id number] 10:56:00 10:56:00 t [facility] Medicine Outpati ent Clinics 2017-12-09 2017-12-09 [facility] [id number] 21:03:00 21:03:00 t [facility] Medicine Outpati ent Clinics 2017-12-09 2017-12-09 [facility] [id number] 09:45:00 09:45:00 t [facility] Medicine Outpati ent Clinics 2017-12-03 2017-12-03 [facility] [id number] 10:45:00 10:45:00 t [facility] Medicine Outpati ent Clinics 2017-09-05 2017-09-05 [facility] [id number] 16:00:00 16:00:00 t [facility] Clinic l Outpati ent Clinics 2017-07-11 2017-07-11 Outpatient Yahaira CORONADO, [facility] [id number] 17:58:00 17:58:00 [facility] Results Test Description Test Time Test Comments [...] (NOTE)RISK OF HEART LDLC) DISEASEPublishe d by [place]cu[place] Heart AssociationAnal yte Optimal Boderline Increased R iskCHOL <200 200-239 >240TRIG <150 150-199 >200HDL Male: >60 <40HDL Female: & gt;60 <50LDL <100 130- 159 >160LDL NEAR OPTIMAL IS 100- 129 VLDL (test code = VLDL) 15 mg/dL 5-40 N LDL/HDL (test code = LDLPHDL) 2 Comprehensive Metabolic [id number] 22:09:00 Test Item Value Reference Range Interpretation [...] by the National Kidney Foundation,http ://nkd ep.nih.gov [id number] 22:05:00 Test Item Value Reference Range Interpretation Comments NT ProBnp (test code = PBNP) 1920 pg/mL 0-124 H CBC with [id number] 18:24:00 Test Item Value Reference Range Interpretation [...] code = ALYMPH) 1.4 K/cumm 0.5-4.6 N Pettis Abs (test code = AMONO) 0.3 K/cumm 0.0-1.2 N Eos Abs (test code = AEOS) 0.09 K/cumm 0.00-0.74 N Baso Abs (test code = ABASO) 0.0 K/cumm 0.00-0.21 N
--- NOTE | 2020-08-21 14:40 | RAD REPORT ---
EXAM DESCRIPTION: RAD - Knee Right 3 View - 08/21/2020 2:29 pm CLINICAL HISTORY: PAIN COMPARISON: Knee Right 3 View dated 07/19/2013 FINDINGS: Advanced tricompartmental osteoarthritis is present. The findings are severe in the medial joint compartment. No fracture or joint effusion is evident.
--- NOTE | 2020-08-21 14:44 | EDPHYS ---
Physician Documentation [facility] Name: Sukh York Age: 60 yrs Sex: Female : 1960 Arrival Date: 08/21/2020 Time: 11:41 Bed 26 Private MD: ED Physician Cj León HPI: 08/21 13:49 This 60 yrs old Female presents to ER via Ambulatory with complaints of R Knee pm1 Pain. 13:49 The patient presents with pain. The complaints affect the right knee. Context: The pm1 problem was sustained at home, resulted from moving furniture, can ambulate using a cane, Problem is a result from a previous injury: History of chronic right knee pain. Reports that she is not normally able to bend it without pain. Onset: The symptoms/episode began/occurred 4 day(s) ago, after moving furniture. Modifying factors: The symptoms are alleviated by remaining still, the symptoms are aggravated by weight bearing, bending knee. Associated signs and symptoms: Pertinent positives: swelling, Pertinent negatives calf tenderness, numbness, tingling. Treatment prior to arrival includes: no previous treatment. Severity of symptoms: in the emergency department the symptoms are unchanged. The patient has not recently seen a physician. Historical: - Allergies: 12:28 PENICILLINS; ll1 - PMHx: 12:28 CHF; COPD; Diabetes - NIDDM; Hypertension; ll1 - PSHx: 12:28 defibrillator; ll1 - Immunization history:: Flu vaccine is not up to date. - Social history:: Smoking status: Patient denies any tobacco usage or history of. ROS: 13:49 Constitutional: Negative for fever, chills, and weight loss, Cardiovascular: Negative pm1 for chest pain, palpitations, and edema, Respiratory: Negative for shortness of breath, cough, wheezing, and pleuritic chest pain. 13:49 Skin: Negative for injury, rash, and discoloration, Neuro: Negative for headache, weakness, numbness, tingling, and seizure. 13:49 MS/extremity: Positive for pain, swelling, of the right knee, Negative for paresthesias. Exam: 13:49 Constitutional: This is a well developed, well nourished patient who is awake, alert, pm1 and in no acute distress. Head/Face: Normocephalic, atraumatic. 13:49 Skin: Warm, dry with normal turgor. Normal color with no rashes, no lesions, and no evidence of cellulitis. 13:49 Cardiovascular: Exam negative for acute changes, Rate: normal, Rhythm: regular, Pulses: no pulse deficits are appreciated. 13:49 Respiratory: Exam negative for acute changes, respiratory distress, shortness of breath. 13:49 Musculoskeletal/extremity: Extremities: grossly normal except: noted in the lateral aspect of right knee: tenderness, There is no evidence of deformity, Circulation is intact in all extremities. 13:49 Neuro: Exam negative for acute changes, Orientation: is normal, Mentation: is normal, Motor: is normal, moves all fours. Vital Signs: 12:26 BP 129 / 69; Pulse 61; Resp 17; Temp 97.6; Pulse Ox 99% ; Weight 114.76 kg; Height 5 ll1 ft. 1 in. (154.94 cm); Pain 10/10; 12:26 Body Mass Index 47.80 (114.76 kg, 154.94 cm) ll1 MDM: 13:33 Patient medically screened. pm1 14:24 Data reviewed: vital signs. Data interpreted: Pulse oximetry: on room air is 99 %. pm1 Interpretation: normal. 14:41 Counseling: I had a detailed discussion with the patient and/or guardian regarding: the pm1 historical points, exam findings, and any diagnostic results supporting the discharge/admit diagnosis, radiology results, the need for outpatient follow up, for definitive care, a orthopedic surgeon, to return to the emergency department if symptoms worsen or persist or if there are any questions or concerns that arise at home. 08/21 13:34 Order name: Knee Right 3 View XRAY; Complete Time: 14:41 pm1 08/21 14:25 Order name: Misc. Order: Walker; Complete Time: 14:33 pm1 08/21 14:33 Order name: Kieran Wrap; Complete Time: 14:33 ss Administered Medications: 14:05 Drug: TORadol 30 mg Route: IM; Site: right gluteus; ss 14:59 Follow up: Response: No adverse reaction; Pain is decreased ss 14:06 Drug: Lidoderm 5 % (700 mg/patch) 1 patches Route: Topical; Site: affected area; ss Disposition: 15:14 Co-signature as Attending Physician, Cj León MD. rn Disposition: 08/21/20 14:43 Discharged to Home. Impression: Arthropathies in other specified diseases classified elsewhere, right knee, Pain in left knee. - Condition is Stable. - Discharge Instructions: Arthritis, How to Use a Walker, Knee Pain. - Prescriptions for Tramadol 50 mg Oral Tablet - take 1 tablet by ORAL route every 8 hours as needed; 12 tablet. - Medication Reconciliation Form, Thank You Letter, Antibiotic Education, Prescription Opioid Use form. - Follow up: Emergency Department; When: As needed; Reason: Worsening of condition. Follow up: Private Physician; When: 2 - 3 days; Reason: Recheck today's complaints, Continuance of care, Re-evaluation by your physician. - Problem is new. - Symptoms have improved. Signatures: Dispatcher [employer] EDCj Shay MD MD rn Smirch, Shelby, RN RN ss Matheus Mattson, LOCAL BULK DRIVER LOCAL BULK DRIVER pm1 Alvarado Rockwell RN RN ll1 Corrections: (The following items were deleted from the chart) 14:33 14:25 Knee Immobilizer ordered. pm1 ss 15:00 14:43 08/21/2020 14:43 Discharged to Home. Impression: Arthropathies in other specified ss diseases classified elsewhere, right kneePain in left knee. Condition is Stable. Discharge Instructions: Knee Immobilizer, How to Use a Walker, Knee Pain. Prescriptions for Tramadol 50 mg Oral Tablet - take 1 tablet by ORAL route every 8 hours as needed; 12 tablet. and Forms are Medication Reconciliation Form, Thank You Letter, Antibiotic Education, Prescription Opioid Use. Follow up: Emergency Department; When: As needed; Reason: Worsening of condition. Follow up: Private Physician; When: 2 - 3 days; Reason: Recheck today's complaints, Continuance of care, Re-evaluation by your physician. Problem is new. Symptoms have improved. pm1
--- NOTE | 2020-08-21 14:44 | ER ---
Nurse's Notes [facility] Name: Sukh York Age: 60 yrs Sex: Female : 1960 Arrival Date: 08/21/2020 Time: 11:41 Bed 26 Private MD: Diagnosis: Pain in left knee;Arthropathies in other specified diseases classified elsewhere, right knee Presentation: 08/21 12:26 Chief complaint: Patient states: R knee pain and swelling since . Was moving ll1 furniture that day, no specific trauma or falls. Coronavirus screen: Client denies travel out of the [place] in the last 14 days. At this time, the client does not indicate any symptoms associated with coronavirus-19. Ebola Screen: Patient denies travel to an Ebola-affected area in the 21 days before illness onset. Initial Sepsis Screen: Does the patient meet any 2 criteria? No. Patient's initial sepsis screen is negative. Does the patient have a suspected source of infection? Yes: Bone or joint infection. Risk Assessment: Do you want to hurt yourself or someone else? Patient reports no desire to harm self or others. Onset of symptoms was August 17, 2020. 12:26 Method Of Arrival: Ambulatory ll1 12:26 Acuity: RADHA 4 ll1 Historical: - Allergies: 12:28 PENICILLINS; ll1 - PMHx: 12:28 CHF; COPD; Diabetes - NIDDM; Hypertension; ll1 - PSHx: 12:28 defibrillator; ll1 - Immunization history:: Flu vaccine is not up to date. - Social history:: Smoking status: Patient denies any tobacco usage or history of. Screenin:30 Abuse screen: Denies threats or abuse. Denies injuries from another. Nutritional ss screening: No deficits noted. Tuberculosis screening: Never had TB. Fall Risk No fall in past 12 months (0 pts). Secondary diagnosis (15 points) painful knee. No IV (0 pts). Ambulatory Aid- Crutches/Cane/Walker (15 pts). Gait- Impaired (20 pts.). Mental Status- Oriented to own ability (0 pts). Assessment: 13:30 General: Appears in no apparent distress. uncomfortable, obese, Behavior is calm. Pain: ss Complains of pain in right knee Pain currently is 10 out of 10 on a pain scale. Quality of pain is described as aching, tender, Is continuous. Neuro: Level of Consciousness is awake, alert, obeys commands, Oriented to person, place, time, situation. Cardiovascular: Capillary refill < 3 seconds is brisk in bilateral fingers Patient's skin is warm and dry. Respiratory: Airway is patent Respiratory effort is even, unlabored, Respiratory pattern is regular, symmetrical. GI: No signs and/or symptoms were reported involving the gastrointestinal system. EENT: Oral mucosa is moist. Derm: Skin is intact, is healthy with good turgor, Skin is pink, warm \T\ dry. normal. Musculoskeletal: Circulation, motion, and sensation intact. Range of motion: intact in all extremities, Swelling absent. 14:37 Reassessment: knee immobilizer not feeling properly. NIKOS Jarvis notified and states ss okay to just place KIERAN wrap and give walker. 14:58 Reassessment: Patient appears in no apparent distress at this time. ss Vital Signs: 12:26 BP 129 / 69; Pulse 61; Resp 17; Temp 97.6; Pulse Ox 99% ; Weight 114.76 kg; Height 5 ll1 ft. 1 in. (154.94 cm); Pain 10/10; 12:26 Body Mass Index 47.80 (114.76 kg, 154.94 cm) ll1 ED Course: 11:41 Patient arrived in ED. ds1 12:27 Triage completed. ll1 12:28 Arm band placed on Patient notified of wait time. ll1 13:28 [facility] pm1 13:28 Cj León MD is Attending Physician. pm1 13:30 Patient has correct armband on for positive identification. Bed in low position. Call ss light in reach. 13:37 Bree Castillo, DAY is Primary Nurse. ss 14:29 Knee Right 3 View XRAY In Process Unspecified. EDMS 14:36 No provider procedures requiring assistance completed. Patient did not have IV access ss during this emergency room visit. Kieran wrap to right knee walker given to patient as ordered by Matheus Mattson NP. Administered Medications: 14:05 Drug: TORadol 30 mg Route: IM; Site: right gluteus; ss 14:59 Follow up: Response: No adverse reaction; Pain is decreased ss 14:06 Drug: Lidoderm 5 % (700 mg/patch) 1 patches Route: Topical; Site: affected area; ss Outcome: 14:43 Discharge ordered by MD. pm1 14:58 Discharged to home ambulatory. 14:58 Condition: improved 14:58 Discharge instructions given to patient, family, Instructed on discharge instructions, follow up and referral plans. medication usage, Demonstrated understanding of instructions, follow-up care, medications, Prescriptions given X 1. 15:00 Patient left the ED. ss Signatures: Dispatcher [employer] [facility] Em Gilbert ds1 Bree Castillo, RN RN ss Matheus Mattson, NIKOS INTERNET PROJECT MANAGER pm1 Alvarado Rockwell RN RN ll1
[2020-08-21 15:11] VITALS: BP 129/69; TEMP 97.6; O2SAT 99
== END 2020-08-21 15:00 | disposition home or self-care (01) ==
LOC: ER 11:39
DX: M25.561 Pain in right knee (principal); M17.11 Unilateral primary osteoarthritis, right knee; I11.0 Hypertensive heart disease with heart failure; I50.9 Heart failure, unspecified; J44.9 Chronic obstructive pulmonary disease, unspecified; E11.9 Type 2 diabetes mellitus without complications
CPT/HCPCS: 96372; 99284

== ENCOUNTER 2020-08-23 01:56 | Observation (INO) | payer OTHER ==
--- OUTSIDE RECORDS SUMMARY | 2020-08-23 01:59 | XMS REPORT | Continuity of Care Document ---
:1960 Author Organization [facility] t Address [address] [place] [address] Care Team Providers Name Role Phone IVONNE [...] [facility] Pain in Pain in Problem Active [facility] right hand right hand Rupali kes - [facility] BMI BMI Problem Active [facility] 45.0-49.9, 45.0-49.9, Rupali kes - adult adult [facility]oria l [facility] Morbid Morbid Problem Active [facility] (severe) (severe) [facility] - [facility] due to due to l excess excess [facility] calories calories ent Clinics Varicose Varicose Problem Active [facility] veins of veins of [facility] - bilateral bilateral Andres jorge l lower lower l extremitie extremitie Ou tpati s with s with ent pain pain Clinics Depression Depression Problem Active [facility] Diabetes Diabetes Problem Active [facility] type 2, type 2, [facility] - controlled controlled Me moria l [facility] Peripheral Peripheral Problem Active [facility] vascular vascular [facility] - disease disease [facility] Other Other Problem Active [facility] chronic chronic [facility] - pain pain [facility] Pain in Pain in Problem Active [facility] right knee right knee Rupali kes - [facility] Clinics Hypertensi Hypertensi Problem Active [facility] on, on, [facility]ukes - unspecifie unspecifie Me moria d type d type l [facility] ent Clinics Shortness Shortness Problem Active [facility] of breath of breath Luke [facility] - [facility] Heart Heart Problem Active [facility] disease disease [facility] - [facility] l [facility] ent Clinics Acute pain Acute pain Problem Active [facility] of left of left [facility]ukes - shoulder shoulder Memori a l [facility] Neck pain Neck pain Problem Active [facility] Acute Acute Problem Active [facility] nonintract nonintract Rupali kes - able able [facility] headache, headache, l unspecifie unspecifie Ou tpati d headache d headache en t type type Clinics Chest Chest Problem Active [facility] pain, pain, Lukes - unspecifie unspecifie Me moria d type d type l [facility] Congestive Congestive Problem Active [facility] heart heart [facility]ukes - failure failure Memoria l [facility]ics Varicose Varicose Problem Active [facility] veins of veins of [facility]ukes - both lower both lower Me moria extremitie extremitie l s, s, Outpati unspecifie unspecifie en t d whether d whether Clin ics complicate complicate d d Polyarthra Polyarthra Problem Active [facility] lgia lgia [facility] Frequent Frequent Problem Active [facility] falls falls [facility] Tremor of Tremor of Problem Active [facility] both hands both hands Rupali kes - [facility] Cardiomyop Cardiomyop Problem Active [facility] athy athy [facility] Coronary Coronary Problem Active [facility] artery artery [facility] - disease disease Memoria involving involving l southern ute southern ute [facility] coronary coronary ent artery of artery of Clin ics southern ute southern ute heart, heart, angina angina presence presence unspecifie unspecifie d d CAD CAD Problem Active [facility] (coronary (coronary Luke s - artery artery Memoria disease) disease) l [facility] Primary Primary Problem Active [facility] osteoarthr osteoarthr Rupali kes - itis of itis of [facility] right knee right knee l [facility] Body mass Body mass Problem Active [facility] index index [facility] - (BMI) of (BMI) of [facility] a 40.0-44.9 40.0-44.9 l in adult in adult Outtnt i ent Clinics Constipati Constipati Problem Active [facility] on, on, Lukes - unspecifie unspecifie Me moria d d l constipati constipati Ou tpati on type on type ent Clinics Swelling Swelling Problem Active [facility] t of left of left [facility] - lower lower Memoria extremity extremity l [facility]ics Left foot Left foot Problem Active [facility] pain pain [facility] Left leg Left leg Problem Active [facility] pain pain [facility] ent [facility] Bruising Bruising Problem Active [facility]ics Hematoma Hematoma Problem Active [facility] t of left of left [facility] - lower lower Memoria extremity, extremity, l subsequent subsequent Ou tpati encounter encounter ent Clinics Right leg Right leg Problem Active [facility] pain pain [facility] ent [facility]ics Status Status Problem Active [facility] post fall post fall Luke s - Memoria l [facility] ent Clinics Mold Mold Problem Active [facility] exposure exposure [facility] ent [facility]ics Asthma, Asthma, Problem Active [facility] unspecifie unspecifie Rupali kes - d asthma d asthma Memori a severity, severity, l unspecifie unspecifie Ou tpati d whether d whether ent complicate complicate Cl inics d, d, unspecifie unspecifie d whether d whether persistent persistent Dizziness Dizziness Problem Active [facility] ent Clinics Allergies, Adverse Reactions, Alerts Allergy Allergy Status Severity Reaction(s) Onset Inactive Treating Comm ents Source Name Type Date Date Clinician PENICILL Allergy Active [facility] penicill Adverse Active Info Not [facility] in Reaction Available [facility] Social History Social Habit Start Date Stop Date Quantity Comments Source Sex Assigned [facility] Smoking Status Start Date Stop Date Source Former Smoker [facility] Medications Ordered Filled Start [...] Hernandez [facility] Macario Macario Yes Kilo [address] [facility] Aspirin EC Aspirin EC Hernandez Rupali kes - Low Dose Low Dose Memoria l [facility] Lisinopril Lisinopril Yes Kilo [address] [facility] Hernandez [facility] Furosemide Furosemide Yes Kilo [address] [facility] [address] Hernandez in am [facility] ent Clinics Coreg Coreg Yes Kilo [address] [facility] [address] Hernandez [facility] Metformin Metformin Yes Kilo [address] HCl HCl Hernandez with meals [facility] ent Clinics Entresto Entresto Yes Kilo [address] 49/51mg 49/51mg David Jenkins - Juju l Outpati ent Clinics albuterol [...] No Kilo [address] [facility] ent Clin[facility] Vital Signs Vital Name Observation Time Observation Value Comments Source BP Diastolic 2020-05-31 00:00:00 79 mm[Hg] [facility] Height 2020-05-31 00:00:00 61 [in_i] [facility] BMI (Body Mass 2020-05-31 00:00:00 49.3 kg/m2 [facility]) [facility] BP Systolic 2020-05-31 00:00:00 116 mm[Hg] [facility] Body Weight 2020-05-31 00:00:00 260.7 [lb_av] [facility] BP Diastolic 2020-03-07 00:00:00 66 mm[Hg] [facility] Height 2020-03-07 00:00:00 61 [in_i] [facility] BMI (Body Mass 2020-03-07 00:00:00 49.4 kg/m2 [facility] BP Systolic 2020-03-07 00:00:00 115 mm[Hg] [facility] Body Weight 2020-03-07 00:00:00 261.5 [lb_av] [facility] Procedures Procedure Date / Time Performing Clinician Source Performed Automatic Defibrillator [facility]olecyst[facility] Plan of Care Planned [...] Test 00:00:00 (procedure) [code = [facility] [id number]] Future Scheduled 1981 DTAP/TDAP/TD VACCINES [facility] I [...] Medica l Center colon (procedure) [code = [id number]] Encounters Start End Encounter Admission Attending Care Care Encounter Source Date/Time Date/Time Type Type Clinicians Facility Department ID 2020-05-31 2020-05-31 SHUN Garcia [place] - [id number] [facility] 00:00:00 00:00:00 MD: Ck [facility] [address], [facility], [place] [id number] , Ph. 2020-03-07 2020-03-07 Mansoor BenavidesSHUN [place] - [id number] [facility] 00:00:00 00:00:00 MD: 600 [facility] [address], [facility], [place] [id number] , Ph. 2019-12-27 2019-12-27 [facility] [id number] [facility] 11:15[facility] 11:15:[address] [facility] Medicine Outpati ent Clinics 2019-12-27 2019-12-27 [facility] [id number] 09:19:00 09:19:00 [facility] Medicine Outpati ent Clinics 2019-10-26 2019-10-26 [facility] [id number] 08:15:00 08:15:00 t [facility] Medicine Outpati ent Clinics 2019-10-20 2019-10-20 [facility] [id number] [address] 23:40:00 23:40:00 [facility] Medicine Outpati ent Clinics 2019-10-20 2019-10-20 [facility] [id number] [address] 14:40:00 14:40:00 [facility] Medicine Outpati ent Clinics 2019-08-19 2019-08-19 [facility] [id number] 11:54:00 11:54:00 t [facility] Medicine Outpati ent Clinics 2019-07-25 2019-07-25 [facility] [id number] 13:11:00 13:11:00 [facility] Medicine Outpati ent Clinics 2019-07-20 2019-07-20 [facility] [id number] 11:00:00 11:00:00 t [facility] Medicine Outpati ent Clinics 2019-04-24 2019-04-24 [facility] [id number] 03:26:00 03:26:00 [facility] Medicine Outpati ent Clinics 2019-04-20 2019-04-20 [facility] [id number] 09:40:00 09:40:00 [facility] Medicine Outpati ent Clinics 2019-03-22 2019-03-22 Outpatient zzzAmy zangelicaPetty [id number] [facility] 14:55:00 14:55:00 Yanick Herndon [facility] Outpati ent Clinics 2019-02-12 2019-02-12 Office [facility], [facility] [id number] 10:42:57 11:02:57 Visit Tom L AMBULATOR [id number] 2019-01-19 2019-01-19 [facility] [id number] [address] 14:40:00 14:40:00 [facility] Outpati ent Clinics 2018-11-04 2018-11-04 [facility] [id number] 12:03:00 12:03:00 [facility] Medicine Outpati ent Clinics 2018-08-26 2018-08-26 [facility] [id number] 11:20:00 11:20:00 [facility] Medicine Outpati ent Clinics 2018-08-14 2018-08-14 [facility] [id number] 14:30:00 14:30:00 [facility] Medicine Outpati ent Clinics 2018-08-03 2018-08-03 [facility] [id number] 12:32:00 12:32:00 t [facility] Medicine Outpati ent Clinics 2018-06-01 2018-06-01 [facility] [id number] 10:15:00 10:15:00 t [facility] Medicine Outpati ent Clinics 2018-03-02 2018-03-02 [facility] [id number] 09:00:00 09:00:00 t [facility] Medicine Outpati ent Clinics 2018-01-30 2018-01-30 [facility] [id number] 11:30:00 11:30:00 t [facility] Medicine Outpati ent Clinics 2018-01-20 2018-01-20 [facility] [id number] [facility] 09:46:00 09:46:00 t [facility] Medicine Outpati ent Clinics 2018-01-13 2018-01-13 [facility] [id number] [address] 10:00:00 10:00:00 t [facility] ent Clinics 2017-12-25 2017-12-25 [facility] [id number] 10:56:00 10:56:00 t [facility] Medicine Outpati ent Clinics 2017-12-09 2017-12-09 [facility] [id number] 21:03:00 21:03:00 t [facility] Medicine Outpati ent Clinics 2017-12-09 2017-12-09 [facility] [id number] 09:45:00 09:45:00 t [facility] Medicine Outpati ent Clinics 2017-12-03 2017-12-03 [facility] [id number] 10:45:00 10:45:00 t [facility] Medicine Outpati ent Clinics 2017-09-05 2017-09-05 [facility] [id number] 16:00:00 16:00:00 t [facility] Clinic l Outpati ent Clinics 2017-07-11 2017-07-11 Outpatient Yahaira [facility]ONAD[facility] [id number] 17:58:00 17:58:00 [facility] Results Test Description Test Time Test [...] (NOTE)RISK OF HEART LDLC) DISEASEPublishe d by [place] Heart AssociationAnal yte Optimal Boderline Increased R iskCHOL <200 200-239 >240TRIG <150 150-199 >200HDL Male: >60 <40HDL Female: & gt;60 <50LDL <100 130- 159 >160LDL NEAR OPTIMAL IS 100- 129 VLDL (test code = VLDL) 15 mg/dL 5-40 N LDL/HDL (test code = LDLPHDL) 2 Comprehensive Metabolic [id number] 22:09:00 Test Item Value Reference Range Interpretation [...] by the National Kidney Foundation,http ://nkd ep.nih.gov [id number] 22:05:00 Test Item Value Reference Range Interpretation Comments NT ProBnp (test code = PBNP) 1920 pg/mL 0-124 H CBC with [id number] 18:24:00 Test Item Value Reference Range Interpretation [...] code = ALYMPH) 1.4 K/cumm 0.5-4.6 N [place] Abs (test code = AMONO) 0.3 K/cumm 0.0-1.2 N Eos Abs (test code = AEOS) 0.09 K/cumm 0.00-0.74 N Baso Abs (test code = ABASO) 0.0 K/cumm 0.00-0.21 N
--- NOTE | 2020-08-23 02:40 | ER ---
Nurse's Notes [facility] Name: Sukh York Age: 60 yrs Sex: Female : 1960 Arrival Date: 08/23/2020 Time: 01:58 Bed 15 Private MD: Diagnosis: Chest pain, unspecified;Type 2 diabetes mellitus;Essential (primary) hypertension;Obesity, unspecified;Angina pectoris Presentation: 08/23 02:07 Chief complaint: EMS states: woke up from sleep with chest pain about 45 minutes ago. Coronavirus screen: Client denies travel out of the [place] in the last 14 days. At this time, the client does not indicate any symptoms associated with coronavirus-19. Ebola Screen: Patient negative for fever greater than or equal to 101.5 degrees Fahrenheit, and additional compatible Ebola Virus Disease symptoms Patient denies exposure to infectious person. Initial Sepsis Screen: Does the patient meet any 2 criteria? No. Patient's initial sepsis screen is negative. Does the patient have a suspected source of infection? No. Patient's initial sepsis screen is negative. Risk Assessment: Do you want to hurt yourself or someone else? Patient reports no desire to harm self or others. Onset of symptoms was August 23, 2020. Care prior to arrival: Medication(s) given: ASA, 324mg Nitroglycerin, x 2, IV initiated. 20 GA, in the left antecubital area, Glucose check: 128. 02:07 Method Of Arrival: EMS: [facility] 02:07 Acuity: RADHA 3 Historical: - Allergies: 02:11 PENICILLINS; - PMHx: 02:11 CHF; COPD; Diabetes - NIDDM; Hypertension; - Immunization history:: Adult Immunizations up to date. - Social history:: Smoking status: Patient denies any tobacco usage or history of. - Family history:: not pertinent. Screenin:11 Abuse screen: Denies threats or abuse. Denies injuries from another. Nutritional screening: No deficits noted. Tuberculosis screening: No symptoms or risk factors identified. Fall Risk None identified. Assessment: 02:11 General: Appears in no apparent distress. Behavior is calm, cooperative, appropriate for age. Pain: Complains of pain in chest Pain does not radiate. Quality of pain is described as pressure, Pain began 1 hour ago. Neuro: Level of Consciousness is awake, alert, obeys commands, Oriented to person, place, time, situation, Appropriate for age. Cardiovascular: Heart tones S1 S2 Rhythm is sinus rhythm. Respiratory: Airway is patent Respiratory effort is even, unlabored, Respiratory pattern is regular, symmetrical, Breath sounds are clear bilaterally. GI: Abdomen is round non-distended. : No signs and/or symptoms were reported regarding the genitourinary system. EENT: No signs and/or symptoms were reported regarding the EENT system. Derm: Skin is intact, is healthy with good turgor, Skin is pink, warm \T\ dry. normal. Musculoskeletal: Circulation, motion, and sensation intact. 03:30 Reassessment: Patient appears in no apparent distress at this time. No changes from previously documented assessment. Patient and/or family updated on plan of care and expected duration. Pain level reassessed. Patient is alert, oriented x 3, equal unlabored respirations, skin warm/dry/pink. Vital Signs: 02:07 BP 141 / 72; Pulse 64; Resp 16; Temp 98.2; Pulse Ox 99% ; Weight 113.4 kg; Height 5 ft. wh 1 in. (154.94 cm); Pain 6/10; 03:30 BP 113 / 68; Pulse 64; Resp 18; Pulse Ox 96% on R/A; wh 02:07 Body Mass Index 47.24 (113.40 kg, 154.94 cm) ED Course: 01:58 Patient arrived in ED. mw2 02:00 Renea Ortiz RN is Primary Nurse. 02:09 Gus San MD is Attending Physician. guerita 02:10 Triage completed. wh 02:12 Patient has correct armband on for positive identification. Placed in gown. Bed in low wh position. Call light in reach. Side rails up X 1. engine monitor on. Pulse ox on. NIBP on. 02:12 Arm band placed on right wrist. wh 02:12 Maintain EMS IV. Dressing intact. Good blood return noted. Site clean \T\ dry. Patient maintains SpO2 saturation greater than 95% on room air. 02:23 XRAY Chest (1 view) In Process Unspecified. EDMS 02:37 Aditya Brito is Hospitalizing Provider. guerita 03:46 No provider procedures requiring assistance completed. Patient admitted, IV remains in place. 07:03 Primary Nurse role handed off by Renea Ortiz RN bd 09:41 Genaro Kelley, RN is Primary Nurse. jl7 Administered Medications: 02:33 Not Given (Physician Discretion): Aspirin 162 mg PO once 02:43 Drug: Lovenox (enoxaparin) 100 mg Route: Sub-Q; Site: right lower abdomen; 03:47 Follow up: Response: No adverse reaction 02:45 Drug: Lopressor 25 mg Route: PO; 03:47 Follow up: Response: No adverse reaction Outcome: 02:39 Decision to Hospitalize by Provider. [facility] 03:46 Admitted to ER Hold. Please see [facility] for further documentation. 03:46 Condition: stable 03:46 Instructed on the need for admit. 15:34 Patient left the ED. jl7 Signatures: Dispatcher [employer] EDMS Verona Hinson Corey, MD MD cha Leal, Jahala, RN RN jlRenea Santos, DAY RN Yoni Parekh mw2
--- NOTE | 2020-08-23 02:40 | EDPHYS ---
Physician Documentation [facility] Name: Sukh York Age: 60 yrs Sex: Female : 1960 Arrival Date: 08/23/2020 Time: 01:58 Bed 15 Private MD: ED Physician Gus San HPI: 08/23 02:31 This 60 yrs old Female presents to ER via EMS with complaints of Chest Pain > guerita 32 y/o. 02:31 The patient or guardian reports chest pain that is located primarily in the substernal guerita area, anterior chest wall. Onset: just prior to arrival, this morning. The pain does not radiate. Associated signs and symptoms: Pertinent positives: shortness of breath. The chest pain is described as a heaviness, a pressure. Duration: The patient or guardian reports multiple episodes, with no pattern. Modifying factors: The symptoms are alleviated by nothing. the symptoms are aggravated by nothing. Severity of pain: At its worst the pain was mild moderate in the emergency department the pain has improved moderately. The patient has not experienced similar symptoms in the past. Historical: - Allergies: 02:11 PENICILLINS; wh - PMHx: 02:11 CHF; COPD; Diabetes - NIDDM; Hypertension; wh - Immunization history:: Adult Immunizations up to date. - Social history:: Smoking status: Patient denies any tobacco usage or history of. - Family history:: not pertinent. ROS: 02:31 Constitutional: Negative for fever, chills, and weight loss, Eyes: Negative for injury, guerita pain, redness, and discharge, ENT: Negative for injury, pain, and discharge, Neck: Negative for injury, pain, and swelling, Respiratory: Negative for shortness of breath, cough, wheezing, and pleuritic chest pain, Abdomen/GI: Negative for abdominal pain, nausea, vomiting, diarrhea, and constipation, Back: Negative for injury and pain, : Negative for injury, bleeding, discharge, and swelling, MS/Extremity: Negative for injury and deformity, Skin: Negative for injury, rash, and discoloration, Neuro: Negative for headache, weakness, numbness, tingling, and seizure, Psych: Negative for depression, anxiety, suicide ideation, homicidal ideation, and hallucinations, Allergy/Immunology: Negative for hives, rash, and allergies, Endocrine: Negative for neck swelling, polydipsia, polyuria, polyphagia, and marked weight changes, Hematologic/Lymphatic: Negative for swollen nodes, abnormal bleeding, and unusual bruising. :31 Cardiovascular: Positive for chest pain, of the chest. Exam: : Constitutional: This is a well developed, well nourished patient who is awake, alert, guerita and in no acute distress. Head/Face: Normocephalic, atraumatic. Eyes: Pupils equal round and reactive to light, extra-ocular motions intact. Lids and lashes normal. Conjunctiva and sclera are non-icteric and not injected. Cornea within normal limits. Periorbital areas with no swelling, redness, or edema. ENT: Nares patent. No nasal discharge, no septal abnormalities noted. Tympanic membranes are normal and external auditory canals are clear. Oropharynx with no redness, swelling, or masses, exudates, or evidence of obstruction, uvula midline. Mucous membranes moist. Neck: Trachea midline, no thyromegaly or masses palpated, and no cervical lymphadenopathy. Supple, full range of motion without nuchal rigidity, or vertebral point tenderness. No Meningismus. Chest/axilla: Normal chest wall appearance and motion. Nontender with no deformity. No lesions are appreciated. Cardiovascular: Regular rate and rhythm with a normal S1 and S2. No gallops, murmurs, or rubs. Normal PMI, no JVD. No pulse deficits. Respiratory: Lungs have equal breath sounds bilaterally, clear to auscultation and percussion. No rales, rhonchi or wheezes noted. No increased work of breathing, no retractions or nasal flaring. Abdomen/GI: Soft, non-tender, with normal bowel sounds. No distension or tympany. No guarding or rebound. No evidence of tenderness throughout. Back: No spinal tenderness. No costovertebral tenderness. Full range of motion. Female : Normal external genitalia. Skin: Warm, dry with normal turgor. Normal color with no rashes, no lesions, and no evidence of cellulitis. MS/ Extremity: Pulses equal, no cyanosis. Neurovascular intact. Full, normal range of motion. Neuro: Awake and alert, GCS 15, oriented to person, place, time, and situation. Cranial nerves II-XII grossly intact. Motor strength 5/5 in all extremities. Sensory grossly intact. Cerebellar exam normal. Normal gait. Psych: Awake, alert, with orientation to person, place and time. Behavior, mood, and affect are within normal limits. 02:39 ECG was reviewed by the Attending Physician. [facility] Vital Signs: 02:07 BP 141 / 72; Pulse 64; Resp 16; Temp 98.2; Pulse Ox 99% ; Weight 113.4 kg; Height 5 ft. wh 1 in. (154.94 cm); Pain 6/10; 03:30 BP 113 / 68; Pulse 64; Resp 18; Pulse Ox 96% on R/A; wh 02:07 Body Mass Index 47.24 (113.40 kg, 154.94 cm) wh MDM: 02:09 Patient medically screened. guerita 02:33 Differential diagnosis: abnormal EKG, acute myocardial infarction, chest wall pain, guerita costochondritis, hiatal hernia, stable angina, unstable angina. HEART Score: ECG: Normal (0), Age: > 45 and < 65 years (1), Risk Factors: > or = 3 Risk factors for atherosclerotic disease (2), [Hypercholesterolemia] [Hypertension] [DM] [+ Family HX] [Obesity] Troponin: < or = 1 x Normal Limit (0), Total Score = 3. The patient was given aspirin in the Emergency Department. The patient's deep vein thrombosis risk score was calculated as follows: Total Score: 0. This patient was found to be at low risk for a deep vein thrombosis by using the Well's assessment criteria. The patient's pulmonary embolism risk score was calculated as follows: Total Score: 0-2 points. This patient was found to be at low risk for a pulmonary embolism by using the Well's assessment criteria. GUY Risk Score: 1 - Three or more CAD risk factors, 1- Known CAD, TOTAL SCORE = 2. Data reviewed: vital signs, nurses notes, lab test result(s), cardiac enzymes, CBC, electrolytes, hepatic panel, EKG, radiologic studies, plain films. Data interpreted: monitor car operator: rate is 64 beats/min, rhythm is regular, Pulse oximetry: on room air is 99 %. Test interpretation: by ED physician or midlevel provider: ECG, plain radiologic studies. Counseling: I had a detailed discussion with the patient and/or guardian regarding: the historical points, exam findings, and any diagnostic results supporting the discharge/admit diagnosis, lab results, radiology results, the need for further work-up and treatment in the hospital. 08/23 02:00 Order name: Basic Metabolic Panel 08/23 02:00 Order name: CBC with Diff 08/23 02:00 Order name: LFT's 08/23 02:00 Order name: Magnesium 08/23 02:00 Order name: NT PRO-BNP; Complete Time: 03:01 08/23 02:00 Order name: PT-INR; Complete Time: 03:48 08/23 02:00 Order name: Troponin (emerg Dept Use Only); Complete Time: 03:01 08/23 02:01 Order name: Basic Metabolic Panel; Complete Time: 03:01 EDMS 08/23 02:01 Order name: CBC with Automated Diff; Complete Time: 03:48 EDAK 08/23 02:01 Order name: Liver (Hepatic) Function; Complete Time: 03:01 EDAK 08/23 02:01 Order name: Magnesium; Complete Time: 03:01 EDAK 08/23 02:44 Order name: COVID-19 : Document "Date of Symptom Onset" if Symptomatic. mg2 08/23 04:26 Order name: SARS-COV-2 RT PCR EDAK 08/23 02:00 Order name: XRAY Chest (1 view) 08/23 02:00 Order name: EKG; Complete Time: 02:01 08/23 02:00 Order name: Cardiac monitoring; Complete Time: 02:13 08/23 02:00 Order name: EKG - Nurse/Tech; Complete Time: 02:13 08/23 02:00 Order name: IV Saline Lock; Complete Time: 02:13 08/23 03:32 Order name: CONS Physician Consult EDAK 08/23 06:30 Order name: Troponin I EDAK 08/23 06:30 Order name: T4 Free EDAK 08/23 06:30 Order name: Thyroid Stimulating Hormone EDAK 08/23 08:21 Order name: Glucose, Ancillary Testing EDAK 08/23 10:13 Order name: Troponin I EDAK 08/23 11:54 Order name: Glucose, Ancillary Testing EDAK 08/23 15:07 Order name: Troponin I EDAK 08/23 02:00 Order name: Labs collected and sent; Complete Time: 02:13 08/23 02:00 Order name: O2 Per Protocol; Complete Time: 02:13 08/23 02:00 Order name: O2 Sat Monitoring; Complete Time: :13 EC:39 Rate is 68 beats/min. Rhythm is regular. QRS [place] is Normal. AL interval is normal. QRS guerita interval is prolonged at 132 msec. QT interval is normal. No Q waves. T waves are Normal. No ST changes noted. Clinical impression: NSR w/ Non-specific ST/T Changes and No evidence of ischemia. Interpreted by me. Reviewed by me. Administered Medications: 02:33 Not Given (Physician Discretion): Aspirin 162 mg PO once 02:43 Drug: Lovenox (enoxaparin) 100 mg Route: Sub-Q; Site: right lower abdomen; 03:47 Follow up: Response: No adverse reaction 02:45 Drug: Lopressor 25 mg Route: PO; 03:47 Follow up: Response: No adverse reaction Disposition: 08/23/20 02:39 Hospitalization ordered by Aditya Brito for Observation. Preliminary diagnosis are Chest pain, unspecified, Type 2 diabetes mellitus, Essential (primary) hypertension, Obesity, unspecified, Angina pectoris. - Bed requested for Telemetry/MedSurg (observation). - Status is Observation. jl7 - Condition is Fair. - Problem is new. - Symptoms have improved. Signatures: Dispatcher [employer] EDMS Verona Hinson Corey, MD MD cha Garcia, Cindy, DAY BERNSTEIN Genaro Kelley RN RN jl7 Renea Ortiz RN RN Corrections: (The following items were deleted from the chart) 03:26 02:45 CORONAVIRUS ordered. EDAK EDMS 03:38 02:39 Hospitalization Ordered by Aditya Brito for Observation. Preliminary diagnosis cg is Chest pain, unspecified; Type 2 diabetes mellitus; Essential (primary) hypertension; Obesity, unspecified; Angina pectoris. Bed requested for Telemetry/MedSurg (observation). Status is Observation. Condition is Fair. Problem is new. Symptoms have improved. guerita 14:23 03:38 08/23/2020 02:39 Hospitalization Ordered by Aditya Brito for Observation. bd Preliminary diagnosis is Chest pain, unspecified; Type 2 diabetes mellitus; Essential (primary) hypertension; Obesity, unspecified; Angina pectoris. Bed requested for [facility] ER HOLD. Status is Observation. Condition is Fair. Problem is new. Symptoms have improved. cg 15:34 14:23 08/23/2020 02:39 Hospitalization Ordered by Aditya Brito for Observation. jl7 Preliminary diagnosis is Chest pain, unspecified; Type 2 diabetes mellitus; Essential (primary) hypertension; Obesity, unspecified; Angina pectoris. Bed requested for Telemetry/MedSurg (observation). Status is Observation. Condition is Fair. Problem is new. Symptoms have improved. bd
[2020-08-23 02:48] LABS: Protime INR 1.12
[2020-08-23 02:49] LABS: Absolute Lymphocytes (CBC) 1.6 K/uL (0.7-4.9); Basophils % 1.3 % (0-1.3); Hematocrit 33.1 % (36.0-45.0); Lymphocytes % 32.3 % (15.3-44.8); MPV 10.5 fL (7.6-11.3); RBC Red Blood Cell Count 3.99 M/uL (3.86-4.86)
[2020-08-23 02:55] LABS: ALT/SGPT 27 U/L (12-78); AST/SGOT 12 U/L (15-37); Albumin 3.3 g/dL (3.4-5.0); Alkaline Phosphatase 79 U/L (45-117); BUN Blood Urea Nitrogen 15 mg/dL (7-18); Bicarbonate 28 mmol/L (21-32); Bilirubin Direct 0.1 mg/dL (0-0.2); Bilirubin Total 0.4 mg/dL (0.2-1.0); Glucose Level 124 mg/dL (74-106); NT PRO-BNP 1384 pg/mL (<125); Potassium 3.6 mmol/L (3.5-5.1); Protein, Total 6.9 g/dL (6.4-8.2); Sodium Level 142 mmol/L (136-145); Troponin (Emerg Dept Use Only) < 0.02 ng/mL (0.0-0.045)
[2020-08-23] MEDS ORDERED: ENOXAPARIN 100 MG/ML SYR SQ ONE (02:56)
[2020-08-23] MEDS ORDERED: METOPROLOL TAR 25 MG TAB ONE (02:56)
--- NOTE | 2020-08-23 05:03 | P.HP ---
Certification for Inpatient Patient admitted to: Observation With expected LOS: <2 Midnights Patient will require the following post-hospital care: None Practitioner: I am a practitioner with admitting privileges, knowledge of patient current condition, hospital course, and medical plan of care. Services: Services provided to patient in accordance with Admission requirements found in Title 42 Section 412.3 of the Code of Federal Regulations <Andres Otero - Last Filed: 08/23/20 06:07> Patient History Date of Service: 08/23/20 Reason for admission: chest pain History of Present Illness: Ms. York is a 60 yo F with HTN, DM, CHF with defibrillator here today with 7/10 left sided chest pressure that woke her from her sleep at 1:15am. Chest pain improved with aspirin. She says this last happened 1 month ago. She reports dizziness, nausea, diaphoresis, vision changes. She denies vomiting, cough, edema. She reports eppisodes of dizziness where she feels like her vision is going black and she has to hold on to something for support. Her safety officer is Dr. Robledo. She did not have a stress test last year due to COVID but says the one before that was normal. Her last cath was 6 years ago with no intervention at that time. Initial troponin negative. BNP 1384. - Past Medical/Surgical History Diabetic: No -: HTN -: DM -: CHF -: AICD placement -: DEE DEE -: Obesity -: COPD -: AICD placement 2014 -: cholecystectomy -: vein surgery - Social History Smoking Status: Never smoker Alcohol use: No CD- Drugs: No Caffeine use: Yes Place of Residence: Home <Andres Otero - Last Filed: 08/23/20 06:07> Date of Service: 08/23/20 <jessi gonzalez - Last Filed: 08/23/20 19:30> Allergies Penicillins Allergy (Mild, Verified 01/07/20 06:43) Hives Home Medications: Aspirin [Lo-Dose Aspirin EC] 81 mg PO DAILY 12/11/17 Glimepiride 1 mg PO BEDTIME 12/11/17 Metformin HCl 500 mg PO BID 12/11/17 Potassium Oral Tab [Klor-Con 10 mEq Tab*] 20 meq PO DAILY 12/11/17 carvediloL [Carvedilol] 12.5 mg PO BEDTIME 12/11/17 Furosemide [Lasix] 40 mg PO DAILY 08/23/20 Sacubitril/Valsartan [Entresto 49 mg-51 mg Tablet] 1 tab PO DAILY 08/23/20 Review of Systems General: Sweats, As per HPI Eyes: Vision Change, As per HPI ENT: Unremarkable Respiratory: Unremarkable Cardiovascular: Chest Pain, Light Headedness, As per HPI Gastrointestinal: Nausea, As per HPI Genitourinary: Unremarkable Musculoskeletal: Unremarkable Integumentary: Unremarkable Neurological: Unremarkable Lymphatics: Unremarkable <Andres Otero - Last Filed: 08/23/20 06:07> Physical Examination - Physical Exam General: Alert, In no apparent distress, Oriented x3, Cooperative HEENT: Atraumatic, Normocephalic, PERRLA, Mucous membr. moist/pink Neck: Supple, 2+ carotid pulse no bruit, JVD not distended, No Thyromegaly, No LAD Respiratory: Clear to auscultation bilaterally, Normal air movement Cardiovascular: No edema, Normal pulses, Regular rate/rhythm, Normal S1 S2, No gallops, No rubs, No murmurs Capillary refill: <2 Seconds Gastrointestinal: Normal bowel sounds, Soft and benign, Non-distended, No ascites, No tenderness, No masses, No rebound, No guarding Musculoskeletal: No clubbing, No swelling, No contractures, No erythema, No tenderness, No warmth Integumentary: No rashes, No breakdown, No significant lesion, No tenderness/swelling, No erythema, No warmth, No cyanosis Neurological: Normal speech, Normal strength at 5/5 x4 extr, Normal tone, Sensation intact, Cranial nerves 3-12 intact, Normal affect Lymphatics: No axilla or inguinal lymphadenopathy - Studies Laboratory Data (last 24 hrs) 08/23/20 02:08: PT 12.9 H, INR 1.12 08/23/20 02:08: WBC 5.10, Hgb 11.1 L, Hct 33.1 L, Plt Count 141 L 08/23/20 02:08: Sodium 142, Potassium 3.6, BUN 15, Creatinine 0.51 L, Glucose 124 H, Magnesium 2.0, Total Bilirubin 0.4, AST 12 L, ALT 27, Alkaline Phosphatase 79 <Andres Otero - Last Filed: 08/23/20 06:07> - Studies Laboratory Data (last 24 hrs) 08/23/20 02:08: PT 12.9 H, INR 1.12 08/23/20 02:08: WBC 5.10, Hgb 11.1 L, Hct 33.1 L, Plt Count 141 L 08/23/20 02:08: Sodium 142, Potassium 3.6, BUN 15, Creatinine 0.51 L, Glucose 124 H, Magnesium 2.0, Total Bilirubin 0.4, AST 12 L, ALT 27, Alkaline Phosphatase 79 <jessi gonzalez - Last Filed: 08/23/20 19:30> Assessment and Plan - Problems (Diagnosis) (1) Chest pain Current Visit: Yes Status: Acute Qualifiers: Chest pain type: unspecified Qualified Code(s): R07.9 - Chest pain, unspecified (2) Diabetes Onset Date: 12/12/17 Current Visit: No Status: Chronic Qualifiers: Diabetes mellitus type: type 2 Diabetes mellitus correction insulin use: without middle or intermediate school principal use Diabetes mellitus complication status: without complication Qualified Code(s): E11.9 - Type 2 diabetes mellitus without complications (3) HTN (hypertension) Onset Date: 12/12/17 Current Visit: No Status: Chronic Qualifiers: Hypertension type: essential hypertension Qualified Code(s): I10 - Essential (primary) hypertension (4) Morbid (severe) obesity due to excess calories Onset Date: 12/12/17 Current Visit: No Status: Chronic (5) CHF (congestive heart failure) Current Visit: Yes Status: Chronic Qualifiers: Heart failure type: unspecified Heart failure chronicity: chronic Qualified Code(s): I50.9 - Heart failure, unspecified - Plan cardiology consulted trend troponins and EKG morphine and NTG PRN for pain will restart home BP medications accuchecks and sliding scale insulin orthostatic vital signs in the AM daily ASA lipd panel, TSH/T4 pending Discharge Plan: Home Plan to discharge in: 24 Hours - Advance Directives Does patient have a Living Will: No Does patient have a Durable POA for Healthcare: No - Code Status/Comfort Care Code Status Assessed: Yes (full code) Critical Care: No Time Spent Managing Pts Care (In Minutes): 70 <Andres Otero - Last Filed: 08/23/20 06:07> Physician Review: Patient Assessed, Agree with Above Assessment and Plan Physician Review Additional Text: Chest pain Dizziness Plan: Paced rhythm. Check orthostatics vitals Obtain echocardiogram. Cardiology consult. <jessi gonzalez - Last Filed: 08/23/20 19:30>
[2020-08-23] MEDS ORDERED: MORPHINE 2 MG/ML SYR IV PRN (05:32)
[2020-08-23] MEDS ORDERED: ONDANSETRON 4 MG/2 ML VIAL IV PRN (05:32)
[2020-08-23] MEDS ORDERED: NITROGLYCERIN 0.4 MG/TAB SL PRN (05:32)
[2020-08-23] MEDS ORDERED: ACETAMINOPHEN 500 MG TAB PO PRN (05:32)
[2020-08-23 05:38] VITALS: BMI 47.2
[2020-08-23 06:30] LABS: Troponin I < 0.02 ng/mL (0.0-0.045)
[2020-08-23] MEDS: INSULIN -REGULAR HUMAN 50 UNIT/0.5 ML ML SQ SCH ×4 (07:30→20:43)
--- NOTE | 2020-08-23 07:50 | RAD REPORT ---
EXAM DESCRIPTION: Rebecca Single View08/23/2020 2:23 am CLINICAL HISTORY: Chest pain COMPARISON: June 2020 FINDINGS: The lungs appear clear of acute infiltrate. The heart is mildly to moderately enlarged. P acemaker leads are in place. IMPRESSION: No acute abnormalities displayed
[2020-08-23] MEDS ORDERED: ASPIRIN EC 81 MG TAB PO ONE (08:02)
[2020-08-23] MEDS: ASPIRIN EC 81 MG TAB PO SCH (09:00)
--- NOTE | 2020-08-23 12:46 | EKG ---
Test Date: 2020-08-23 Test Time: 01:59:23 Mechanical Oxidizer: MEASUREMENT RESULTS: Intervals: Rate: 68 ME: 174 QRSD: 132 QT: 414 QTc: 440 [place]: P: 56 ME: 174 QRS: -26 T: 72 INTERPRETIVE STATEMENTS: Normal sinus rhythm Left ventricular hypertrophy with QRS widening Abnormal ECG Compared to ECG 07/14/2020 10:20:56 Left-axis deviation no longer present Early repolarization no longer present Electronically Signed On 08-23-20 12:45:20 CDT by Jose Alberto Mac
--- NOTE | 2020-08-23 19:20 | P.PN ---
Date of Service: 08/23/20 Patient seen and examined. She is complaining of dizziness especially with sitting and standing. Systolic Blood pressure is in the low 100s. Patient denies any chest pain now. Troponin is negative. Cardiology input appreciated. Monitor orthostatics vitals. Patient is quiet symptomatic and may need to monitor her for overnight.
--- NOTE | 2020-08-23 21:41 | CON ---
Date of Consultation: 08/23/2020 Reason For Consultation: Atypical chest pain. History Of Present Illness: Ms. York is a 60-year-old woman, who has a history of congestive heart failure, diabetes, COPD, hypertension, actually has a defibrillator, came in really mostly with pres yncope. She has a normal EKG. She also had some atypical chest pain in the substernal area, that do es not radiate. She has some shortness of breath, described as heaviness. At the time she came to [facility] emergency room, she was chest pain free and has a normal troponin. Her BNP was 1384. Her glucose was 139. She was in sinus rhythm. Past Medical History: As stated above. Allergies: PENICILLIN. Review of Systems: Negative. Social History: Negative. Family History: Noncontributory. Medications: At home include aspirin, Lasix 40 mg daily, glimepiride, metformin 500 mg b.i.d. She i s on Entresto 49/51 mg daily twice a day. She is on carvedilol 12.5 mg once a day. She is on potass ium. Physical Examination: Vital Signs: Stable. She was afebrile. HEENT: Negative. Neck: Supple. No bruit. Chest: Clear. Cardiac: Regular rhythm and rate. No murmurs, gallops, or rubs. Abdomen: Benign. Extremities: No clubbing, cyanosis, or edema. Diagnostic Data: All within normal limits except for a BNP of 1384. Her chest x-ray is normal. EKG was normal. Impression And Plan: The patient with history of congestive heart failure, status post defibrillator , recently checked by Dr. Glenn Robledo. She has an appointment coming up with Dr. Robledo. I would pe rsonally continue her medication including aspirin, Lasix, glimepiride, metformin, potassium, her Ent amish needs to be twice a day, and her carvedilol needs to be twice a day. I do not recommend any fu rther cardiac workup on her at this point. She can go back and see Dr. Robledo whenever it is okay wit h Dr. Brito. Her other problems including diabetes and hypertension seem to be stable at this point . The patient's really main complaint is dizziness, which I believe truly is secondary to vertigo. Certainly putting her on meclizine before she goes home, may be reasonable. I do not think her dizzi ness or tachycardia by any means. FAHAD/MELANIE Voice ID: [id number] Report ID: [id number]
[2020-08-24 05:31] LABS: Urine Appearance CLEAR (Clear); Urine Bilirubin NEGATIVE (Negataive); Urine Blood TRACE (Negative); Urine Color YELLOW (Yellow); Urine Glucose NEGATIVE (Negative); Urine Protein NEGATIVE (Negative); Urine Urobilinogen 0.2 mg/dL (0.2-1.0); Urine pH 5.5 (5.0-7.0)
[2020-08-24 05:32] LABS: Absolute Lymphocytes (CBC) 1.4 K/uL (0.7-4.9); Basophils % 0.8 % (0-1.3); Hematocrit 32.4 % (36.0-45.0); Lymphocytes % 30.7 % (15.3-44.8); MPV 10.2 fL (7.6-11.3); RBC Red Blood Cell Count 3.91 M/uL (3.86-4.86)
[2020-08-24 05:36] LABS: Urine Microscopic Reflex ORDER UMIC
[2020-08-24] MEDS ORDERED: MECLIZINE HCL 12.5 MG TAB PO PRN (05:40)
[2020-08-24 05:52] LABS: Urine Bacteria <20 /HPF (<20); Urine RBC <5 /HPF (NONE SEEN)
[2020-08-24 05:53] LABS: ALT/SGPT 28 U/L (12-78); AST/SGOT 15 U/L (15-37); Alkaline Phosphatase 56 U/L (45-117); BUN Blood Urea Nitrogen 12 mg/dL (7-18); Bicarbonate 29 mmol/L (21-32); Bilirubin Total 0.5 mg/dL (0.2-1.0); Glucose Level 104 mg/dL (74-106); HDL Cholesterol 33 mg/dL (40-60); LDL Cholesterol, Calculated 49 (<130); Magnesium 2.3 mg/dL (1.8-2.4); Potassium 3.7 mmol/L (3.5-5.1); Protein, Total 6.4 g/dL (6.4-8.2); Sodium Level 144 mmol/L (136-145)
[2020-08-24 06:40] LABS: Phosphorus 4.5 mg/dL (2.5-4.9)
[2020-08-24] MEDS: INSULIN -REGULAR HUMAN 50 UNIT/0.5 ML ML SQ SCH ×4 (07:30→20:35)
[2020-08-24] MEDS: ENOXAPARIN 40 MG/0.4 ML SQ SCH (08:17)
[2020-08-24] MEDS: ASPIRIN EC 81 MG TAB PO SCH (08:17)
[2020-08-24] MEDS ORDERED: POTASSIUM 25 MEQ EFFERV TAB PO ONE (09:00)
--- NOTE | 2020-08-24 11:48 | P.PN ---
Subjective Date of Service: 08/24/20 Chief Complaint: chest pain Subjective: No new changes (still dizzy) Physical Examination - Vital Signs Temperature: 97.1 F Blood Pressure: 119/68 Pulse: 66 Respirations: 16 Pulse Ox (%): 96 - Physical Exam General: Alert, In no apparent distress, Oriented x3 HEENT: Atraumatic, Normocephalic, PERRLA Neck: Supple, 2+ carotid pulse no bruit Respiratory: Clear to auscultation bilaterally, Normal air movement Cardiovascular: No edema, Normal pulses, Regular rate/rhythm Gastrointestinal: Normal bowel sounds, Hypoactive, Soft and benign Musculoskeletal: No clubbing, No swelling Neurological: Normal gait, Normal speech, Normal strength at 5/5 x4 extr Assessment And Plan - Current Problems (Diagnosis) (1) Chest pain Current Visit: Yes Status: Acute Qualifiers: Chest pain type: unspecified Qualified Code(s): R07.9 - Chest pain, unspecified (2) CHF (congestive heart failure) Current Visit: Yes Status: Chronic Qualifiers: Heart failure type: unspecified Heart failure chronicity: chronic Qualified Code(s): I50.9 - Heart failure, unspecified (3) Diabetes Onset Date: 12/12/17 Current Visit: No Status: Chronic Qualifiers: Diabetes mellitus type: type 2 Diabetes mellitus detention insulin use: without detention use Diabetes mellitus complication status: without complication Qualified Code(s): E11.9 - Type 2 diabetes mellitus without complications (4) HTN (hypertension) Onset Date: 12/12/17 Current Visit: No Status: Chronic Qualifiers: Hypertension type: essential hypertension Qualified Code(s): I10 - Essential (primary) hypertension (5) Morbid (severe) obesity due to excess calories Onset Date: 12/12/17 Current Visit: No Status: Chronic (6) DEE DEE (obstructive sleep apnea) Onset Date: 12/12/17 Current Visit: No Status: Chronic (7) Acute CHF Onset Date: 12/12/17 Current Visit: No Status: Resolved Qualifiers: Heart failure type: systolic Qualified Code(s): I50.21 - Acute systolic (congestive) heart failure Physician Review: Patient Assessed, Agree with Above Assessment and Plan Physician Review Additional Text: Recurrent vertigo with dizziness Chest pain-resolved History of AICD placed Hypertension Plan: -no abnormal rhythm, currently Paced rhythm -still persistent symptoms while lying down and at rest and moving head from side to side,possible BPPV - switch meclizine from p.r.n. to scheduled Q 6 follow -Cleared by Cardiology -will resume home medication- Increase Coreg to b.i.d. and Entresto to bid rather than daily home use of medication -a symptoms improving in a.m., can be discharged home
[2020-08-24] MEDS: MECLIZINE HCL 12.5 MG TAB PO SCH ×3 (12:14→23:51)
[2020-08-24] MEDS: METFORMIN HCL 500 MG TAB PO SCH (20:31)
[2020-08-24] MEDS: SACUBITRIL/VALSARTAN 24/26 MG TAB PO SCH (20:31)
[2020-08-24] MEDS: carvediloL 6.25 MG TAB PO SCH (20:31)
[2020-08-24] MEDS ORDERED: GLIMEPIRIDE 2 MG TABLET PO SCH (21:00)
[2020-08-25] MEDS: MECLIZINE HCL 12.5 MG TAB PO SCH ×2 (05:23→11:15)
[2020-08-25 06:15] LABS: BUN Blood Urea Nitrogen 11 mg/dL (7-18); Bicarbonate 31 mmol/L (21-32); Glucose Level 108 mg/dL (74-106); Potassium 3.8 mmol/L (3.5-5.1); Sodium Level 144 mmol/L (136-145)
[2020-08-25] MEDS: INSULIN -REGULAR HUMAN 50 UNIT/0.5 ML ML SQ SCH ×2 (07:30→11:30)
[2020-08-25] MEDS: ENOXAPARIN 40 MG/0.4 ML SQ SCH (08:18)
[2020-08-25] MEDS: METFORMIN HCL 500 MG TAB PO SCH (08:18)
[2020-08-25] MEDS: carvediloL 6.25 MG TAB PO SCH (08:19)
[2020-08-25] MEDS: SACUBITRIL/VALSARTAN 24/26 MG TAB PO SCH (08:19)
--- NOTE | 2020-08-25 08:21 | ECHO ---
HEIGHT: 5 ft 1 in WEIGHT: 250 lb 0 oz DATE OF STUDY: 08/24/[address]: jessi gonzalez 2-DIMENSIONAL: YES M.MODE: YES DOPPLER: YES COLOR FLOW: YES TDS: PORTABLE: DEFINITY: BUBBLE STUDY: DIAGNOSIS: DIZZINESS CARDIAC HISTORY: CATHERIZATION: NO SURGERY: NO PROSTHETIC VALVE: NO PACEMAKER: YES MEASUREMENTS (cm) DIASTOLIC (NORMALS) SYSTOLIC (NORMALS) IVSd 1.2 (0.6-1.2) LA Diam 3.3 (1.9-4.0) LVEF 50-55% LVIDd 5.5 (3.5-5.7) LVIDs 4.5 (2.0-3.5) %FS 19% LVPWd 1.3 (0.6-1.2) Ao Diam 3.1 (2.0-3.7) 2 DIMENSIONAL ASSESSMENT: RIGHT ATRIUM: NORMAL LEFT ATRIUM: NORMAL RIGHT VENTRICLE: PACEMAKER LEAD LEFT VENTRICLE: NORMAL TRICUSPID VALVE: NORMAL MITRAL VALVE: MILD MITRAL REGURGITATION PULMONIC VALVE: NORMAL AORTIC VALVE: NORMAL PERICARDIAL EFFUSION: NONE AORTIC ROOT: NORMAL LEFT VENTRICULAR WALL MOTION: SEE BELOW DOPPLER/COLOR FLOW: MODERATE DIASTOLIC DYSFUNCTION COMMENTS: LOW NORMAL LEFT VENTRICULAR EJECTION FRACTION 50-55%. MODERATE DIASTOLIC DYSFUNCTION. MILD MITRAL REGURGITATION. TECHNOLOGIST: ANNIKA PALOMARES
[2020-08-25] MEDS ORDERED: ASPIRIN EC 81 MG TAB PO SCH (09:00)
[2020-08-25] MEDS ORDERED: POTASSIUM CL SA 10 MEQ TAB PO SCH (09:00)
[2020-08-25 10:14] VITALS: O2SAT 99
--- NOTE | 2020-08-25 12:13 | P.DS ---
Admission Date: 08/23/20 Discharge Date: 08/25/20 Disposition: ROUTINE DISCHARGE Discharge Condition: FAIR Reason for Admission: chest pain - Problems (1) Dizziness Status: Acute (2) Chest pain Status: Acute Qualifiers: Chest pain type: unspecified Qualified Code(s): R07.9 - Chest pain, unspecified (3) Benign positional vertigo Status: Acute Brief History of Present Illness: 60 yo F with HTN, DM, CHF with defibrillator presented to the emergency department with a complaint of left-sided chest pressure and dizziness. Patient reported dizziness with standing and turning in bed. 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 She did not have a stress test last year due to COVID but says the one before that was normal. Her last cath was 6 years ago with no intervention at that time. Initial troponin negative. BNP 1384. Patient was hospitalized for chest pain rule out. Hospital Course: Patient place under observation. Troponin trended negative. Patient was seen and evaluated by cardiology. Her blood pressure was borderline low. Patient is on entry also and Coreg. Coreg was decreased from 12.5 b.i.d. to 6.25 b.i.d. Patient is not orthostatic. His possible her dizziness is related to position vertigo versus borderline low blood pressure. Her systolic blood pressure is better today after reducing Coreg dose. ACS has been ruled out. He is discharged to follow with her wash oil pump operator Dr. Robledo. Vital Signs/Physical Exam: Temp Pulse Resp BP Pulse Ox 97.6 F 62 17 123/70 99 08/25/20 08:00 08/25/20 08:19 08/25/20 08:00 08/25/20 08:19 08/25/20 08:00 General: Alert, In no apparent distress, Oriented x3 HEENT: Mucous membr. moist/pink Neck: Supple, JVD not distended Respiratory: Clear to auscultation bilaterally, Normal air movement Cardiovascular: No edema, Regular rate/rhythm, Normal S1 S2 Gastrointestinal: Normal bowel sounds, Soft and benign, Non-distended, No ascites Musculoskeletal: No swelling Integumentary: No rashes Neurological: Normal strength at 5/5 x4 extr, Cranial nerves 3-12 intact Laboratory Data at Discharge: WBC 4.40 K/uL (4.3-10.9) 08/24/20 05:04 Hgb 10.9 g/dL (12.0-15.0) L 08/24/20 05:04 Hct 32.4 % (36.0-45.0) L 08/24/20 05:04 Plt Count 132 K/uL (152-406) L 08/24/20 05:04 PT 12.9 SECONDS (9.5-12.5) H 08/23/20 02:08 INR 1.12 08/23/20 02:08 Sodium 144 mmol/L (136-145) 08/25/20 05:37 Potassium 3.8 mmol/L (3.5-5.1) 08/25/20 05:37 BUN 11 mg/dL (7-18) 08/25/20 05:37 Creatinine 0.35 mg/dL (0.55-1.3) L 08/25/20 05:37 Glucose 108 mg/dL (74-106) H 08/25/20 05:37 Phosphorus 4.5 mg/dL (2.5-4.9) 08/24/20 05:04 Magnesium 2.3 mg/dL (1.8-2.4) 08/24/20 05:04 Total Bilirubin 0.5 mg/dL (0.2-1.0) 08/24/20 05:04 AST 15 U/L (15-37) 08/24/20 05:04 ALT 28 U/L (12-78) 08/24/20 05:04 Alkaline Phosphatase 56 U/L (45-117) 08/24/20 05:04 Troponin I < 0.02 ng/mL (0.0-0.045) 08/23/20 14:37 Triglycerides 82 mg/dL (<150) 08/24/20 05:04 Cholesterol 98 mg/dL (<200) 08/24/20 05:04 HDL Cholesterol 33 mg/dL (40-60) L 08/24/20 05:04 Cholesterol/HDL Ratio 2.97 08/24/20 05:04 Home Medications: Aspirin [Lo-Dose Aspirin EC] 81 mg PO DAILY 12/11/17 Glimepiride 1 mg PO BEDTIME 12/11/17 Metformin HCl 500 mg PO BID 12/11/17 Potassium Oral Tab [Klor-Con 10 mEq Tab*] 20 meq PO DAILY 12/11/17 Sacubitril/Valsartan [Entresto 49 mg-51 mg Tablet] 1 tab PO DAILY 08/23/20 Furosemide [Lasix] 40 mg PO Q48H 30 Days #15 tab 08/25/20 Meclizine HCl [Antivert*] 25 mg PO Q6H PRN #30 tab 08/25/20 carvediloL [Coreg*] 6.25 mg PO BID #60 tab 08/25/20 New Medications: Meclizine HCl [Antivert*] 25 mg PO Q6H PRN #30 tab PRN Reason: Dizziness carvediloL [Coreg*] 6.25 mg PO BID #60 tab Furosemide [Lasix] 40 mg PO Q48H 30 Days #15 tab Physician Discharge Instructions: Orthostatic precautions: When getting up from lying position, place sit for 2 min before standing up. Diet: AHA Activity: Orthostatic precaution Followup: Unknown,U [Primary Care Provider] - Glenn Robledo MD [OUTSIDE PHYSICIAN] - 1-2 Weeks
[2020-08-25 12:16] VITALS: BP 120/66; TEMP 97.4
--- NOTE | 2020-08-25 12:46 | EKG ---
Test Date: 2020-08-25 Test Time: 03:25:43 Band Sewer: RT-O MEASUREMENT RESULTS: Intervals: Rate: 60 NV: 122 QRSD: 136 QT: 440 QTc: 440 Jones: P: 10 NV: 122 QRS: -25 T: 105 INTERPRETIVE STATEMENTS: Electronic atrial pacemaker Left ventricular hypertrophy with QRS widening and repolarization abnormality Abnormal ECG Compared to ECG 08/23/2020 01:59:23 Early repolarization now present Sinus rhythm no longer present Electronically Signed On 08-25-20 12:45:16 CDT by Jose Alberto Mac
== END 2020-08-25 13:08 | disposition home or self-care (01) ==
LOC: ER 01:56 → ERHOLD 03:31 → 2ND 15:16
PROVIDERS: ADMIT Internal Medicine; ATTEND Internal Medicine
DX: R07.9 Chest pain, unspecified (principal); H81.10 Benign paroxysmal vertigo, unspecified ear; I11.0 Hypertensive heart disease with heart failure; I50.21 Acute systolic (congestive) heart failure; Z20.822 Contact with and (suspected) exposure to COVID-19; R94.31 Abnormal electrocardiogram [ECG] [EKG]; E11.9 Type 2 diabetes mellitus without complications; E66.01 Morbid (severe) obesity due to excess calories; G47.33 Obstructive sleep apnea (adult) (pediatric); Z95.810 Presence of automatic (implantable) cardiac defibrillator; J44.9 Chronic obstructive pulmonary disease, unspecified; Z68.42 Body mass index [BMI] 45.0-49.9, adult
CPT/HCPCS: 93005 ×2; 93306; 85025 ×2; 80048 ×2; 36415 ×3; 83735 ×2; 84100; 85610; 80061; 82947 ×10; 80076; 84443; 84484 ×4; 84439; 80053; 83880; 71045; 94760 ×2; 96372; 99285; U0003; J1650 ×3; 81003; 81015; G0378

== ENCOUNTER 2020-11-19 22:21 | Emergency (ER) | payer OTHER ==
--- OUTSIDE RECORDS SUMMARY | 2020-11-19 22:34 | XMS REPORT | Continuity of Care Document ---
:1960 Author Organization [facility] t Address [address] [place] [address] Care Team Providers Name Role Phone IVONNE Primary Care Physician Unavailable Eron CAM, L Attending Clinician IVONNE Attending Clinician Unavailable IVONNE Admitting Clinician Unavailable Problems This patient has no known problems. Allergies, Adverse Reactions, Alerts Allergy Allergy Status Severity Reaction(s) Onset Inactive Treating Comm ents Source Name Type Date Date Clinician penicill Adverse Active Info Not [facility] Allergy Active [place] [facility] Social History Social Habit Start Date Stop Date Quantity Comments Source Sex Assigned At [facility] Smoking Status Start Date Stop Date Source Former Smoker [facility] Medications Ordered Filled Start Stop Current Ordering Indication Dosage Frequency Signature Comments Components Source Medication Medication Date Date Medication? Clinician (SIG) Name Name methocarbam methocarbam 2020-0 No 2 Q6H methocarba [place] 500 [...] TEST ent STRIPS Clinics FORMULARY TO INSURANCE) accu-chek accu-chek No accu-chek [place] guide guide guide da w/device w/device w/device Med ical kit kit kit Group albuterol albuterol No albuterol [place] sulfate HFA [...] powder for powder for inhalation inhalation inhalation Glimepiride Glimepiride Yes Kilo [address] [facility] Macario Macario Yes Kilo [address] [facility] Aspirin EC Aspirin [facility] Lisinopril Lisinopril Yes Kilo [address] [facility] Furosemide Furosemide Yes Kilo [address] [facility] Coreg Coreg Yes Kilo [address] [facility] Metformin Metformin Yes Kilo [address] HCl HCl Hernandez with meals [facility] Entresto Entresto Yes Kilo [address] 49/51mg 49/51mg [facility][1[facility] l [facility] carvedilol carvedilol No carvedilol [place] 6.25 mg 6.25 mg 6.25 mg da tablet TAKE tablet TAKE tablet Medical 1 TABLET BY 1 TABLET BY TAKE 1 Group MOUTH TWICE MOUTH TWICE TABLET BY DAILY DAILY MOUTH TWICE DAILY clindamycin clindamycin No clindamyci [place] HCl 150 [...] mg 40 mg 40 mg da tablet TAKE tablet TAKE tablet Medical 1 TABLET BY 1 TABLET BY TAKE 1 Group MOUTH EVERY MOUTH EVERY TABLET BY 48 HOURS 48 HOURS MOUTH EVERY 48 HOURS glimepiride glimepiride No glimepirid [place] 2 mg tablet 2 mg tablet e 2 mg da TAKE 1 TAKE 1 tablet Medical TABLET BY TABLET BY TAKE 1 Adela up MOUTH ONCE MOUTH ONCE TABLET BY DAILY FOR DAILY FOR MOUTH ONCE 90 DAYS 90 DAYS DAILY FOR 90 DAYS ipratropium ipratropium No ipratropiu [place] bromide 21 bromide 21 m bromide da mcg (0.03 mcg (0.03 21 mcg Med ical %) nasal %) nasal (0.03 %) Adela up spray USE 2 spray USE 2 nasal SPRAY(S) IN SPRAY(S) IN spray USE EACH EACH 2 SPRAY(S) NOSTRIL NOSTRIL IN EACH TWICE DAILY TWICE DAILY NOSTRIL TWICE DAILY iron 65 mg iron 65 mg No iron 65 mg [place] tablet Take tablet Take tablet da by oral by oral Take by Medica l route. route. oral Group route. levofloxaci levofloxaci No levofloxac [place] n 500 mg n 500 mg in 500 mg da tablet TAKE tablet TAKE tablet Medical 1 TABLET BY 1 TABLET BY TAKE 1 Group MOUTH EVERY MOUTH EVERY TABLET BY DAY FOR 7 DAY FOR 7 MOUTH DAYS DAYS EVERY DAY FOR 7 DAYS meclizine meclizine No meclizine [place] 25 mg 25 mg 25 mg da tablet TAKE tablet TAKE tablet Medical 1 TABLET BY 1 TABLET BY TAKE 1 Group MOUTH THREE MOUTH THREE TABLET BY TIMES DAILY TIMES DAILY MOUTH THREE TIMES DAILY metformin metformin No metformin [place] 500 mg 500 mg 500 mg da tablet TAKE tablet TAKE tablet Medical 1 TABLET BY 1 TABLET BY TAKE 1 Group MOUTH TWICE MOUTH TWICE TABLET BY DAILY WITH DAILY WITH MOUTH MEALS FOR MEALS FOR TWICE 90 DAYS 90 DAYS DAILY WITH MEALS FOR 90 DAYS omeprazole omeprazole No omeprazole [place] 40 mg [...] Ultra2 da [facility] potassium potassium No potassium [place] chloride ER chloride ER chloride da 20 mEq 20 mEq ER 20 mEq Medica l tablet,exte tablet,exte tablet,ext Group nded nded ended release(par release(par release(pa t/cryst) t/cryst) rt/cryst) Take 1 Take 1 Take 1 tablet tablet tablet every day every day every day by oral by oral by oral route. route. route. tramadol 50 tramadol 50 No tramadol [place] mg tablet mg tablet 50 mg da TAKE 1 TAKE 1 tablet Medical TABLET BY TABLET BY TAKE 1 Adela up MOUTH EVERY MOUTH EVERY TABLET BY 8 HOURS 8 HOURS MOUTH NEEDED NEEDED EVERY 8 HOURS NEEDED Klor-Con 10 Klor-Con 10 2019- No Kilo [address] [facility] Vital Signs Vital Name Observation Time Observation Value Comments Source BP Diastolic 2020-09-14 00:00:00 68 mm[Hg] [facility] Height 2020-09-14 00:00:00 61 [in_i] [facility] BMI (Body Mass 2020-09-14 00:00:00 48 kg/m2 [facility] stopper maker Medical Index) Group BP Systolic 2020-09-14 00:00:00 102 mm[Hg] [facility] Body Weight 2020-09-14 00:00:00 254.2 [lb_av] [facility] BP Diastolic 2020-05-31 00:00:00 79 mm[Hg] [facility] Height 2020-05-31 00:00:00 61 [in_i] [facility] BMI (Body Mass 2020-05-31 00:00:00 49.3 kg/m2 [facility] Medical Index) Group BP Systolic 2020-05-31 00:00:00 116 mm[Hg] [facility] Body Weight 2020-05-31 00:00:00 260.7 [lb_av] [facility] BP Diastolic 2020-03-07 00:00:00 66 mm[Hg] [facility] Height 2020-03-07 00:00:00 61 [in_i] [facility] BMI (Body Mass 2020-03-07 00:00:00 49.4 kg/m2 [facility] BP Systolic 2020-03-07 00:00:00 115 mm[Hg] [facility] Body Weight 2020-03-07 00:00:00 261.5 [lb_av] [facility] Procedures Procedure Date / Time Performing Clinician Source Performed Automatic Defibrillator [facility] Encounters Start End Encounter Admission Attending Care Care Encounter Source Date/Time Date/Time Type Type Clinicians Facility Department ID 2020-10-18 2020-10-18 Outpatient [facility] [id number] [facility] 2020-10-06 2020-10-06 Outpatient [facility] [id number] [facility] 2020-09-25 2020-09-25 Outpatient [facility] [id number] [facility] 2020-09-14 2020-09-14 SHUN Garcia [place] - [id number] [place] 00:00:00 00:00:00 MD: Ck [facility] [address], [facility], Ot[place] eugenia[place]elergoNAVA [phone] , Ph. 2020-09-13 2020-09-13 Outpatient [facility] [id number] [facility] 2020-09-13 2020-09-13 Outpatient [facility] [id number] [facility] 2020-09-05 2020-09-05 Outpatient [facility] [id number] [facility] 2020-05-31 2020-05-31 SHUN Garcia [place] - [id number] [place] 00:00:00 00:00:00 MD: Ck [facility] [address], [facility], Otolaryngol CAROL Gonzalez [phone] , Ph. 2020-03-07 2020-03-07 SHUN Garcia [place] - [id number] [place] 00:00:00 00:00:00 MD: Ck [facility] [address], [facility], [place] [phone] , Ph. 2019-12-27 2019-12-27 [facility] [id number] [address] 11:15:00 11:15:00 [facility] Outpat[facility] ent Clinics 2019-12-27 2019-12-27 [facility] [id number] 09:19:00 09:19:00 [facility] Outpati ent Clinics 2019-10-26 2019-10-26 [facility] [id number] 08:15:00 08:15:00 [facility] Outpat[facility] ent Clinics 2019-10-20 2019-10-20 [facility] [id number] 23:40:00 23:40:00 [facility] Outpat[facility] Clinics 2019-10-20 2019-10-20 [facility] [id number] 14:40:00 14:40:00 [facility] Out[facility] Clinics 2019-08-19 2019-08-19 [facility] [id number] 11:54:00 11:54:00 [facility] Out[facility] Clinics 2019-07-25 2019-07-25 [facility] [id number] 13:11:00 13:11:00 [facility] Outpat[facility] ent Clinics 2019-07-20 2019-07-20 [facility] [id number] 11:00:00 11:00:00 [facility] Out[facility] Clinics 2019-04-24 2019-04-24 [facility] [id number] 03:26:00 03:26:00 [facility] Out[facility] Clinics 2019-04-20 2019-04-20 [facility] [id number] [address] 09:40:00 09:40:00 [facility] Out[facility] Clinics 2019-03-22 2019-03-22 Outpatient Judy Kim [id number] [facility] 14:[facility] 14[facility]55[facility]00 [facility] 2019-02-12 2019-02-12 Office JOSÉ MIGUEL Littlejohn [id number] 10:42:57 11:02:57 Visit Tom Garcia AMBULATOR [id number] 2019-01-19 2019-01-19 [facility] [id number] 14:40:00 14:40:00 [facility] Outpati ent Clinics 2018-11-04 2018-11-04 [facility] [id number] 12:03:00 12:03:00 [facility] Outpati ent Clinics 2018-08-26 2018-08-26 [facility] [id number] [facility] 11:20:00 11:20:00 [facility] Outpati ent Clinics 2018-08-14 2018-08-14 [facility] [id number] [address] 14:30:00 14:30:00 [facility] Outpati ent Clinics 2018-08-03 2018-08-03 [facility] [id number] 12:32:00 12:32:00 [facility] Medicine Outpati ent Clinics 2018-06-01 2018-06-01 [facility] [id number] [address] 10:15:00 10:15:00 [facility] Outpati ent Clinics 2018-03-02 2018-03-02 [facility] [id number] 09:00:00 09:00:00 [facility] Outpati ent Clinics 2018-01-30 2018-01-30 [facility] [id number] 11:30:00 11:30:00 [facility] Medicine Outpati ent Clinics 2018-01-20 2018-01-20 [facility] [id number] 09:46:00 09:46:00 t [facility] ent Clinics 2018-01-13 2018-01-13 [facility] [id number] 10:00:00 10:00:00 [facility] 2017-12-25 2017-12-25 [facility] [id number] 10:56:00 10:56:00 t [facility] ent Clinics 2017-12-09 2017-12-09 [facility] [id number] 21:03:00 21:03:00 [facility] ent Clinics 2017-12-09 2017-12-09 [facility] [id number] 09:45:00 09:45:00 [facility] Clinics 2017-12-03 2017-12-03 [facility] [id number] 10:45:00 10:45:00 t [facility] ent Clinics 2017-09-05 2017-09-05 [facility] [id number] 16:00:00 16:00:00 t [facility] ent Clinics 2017-07-11 2017-07-11 Outpatient Yahaira CORONADO, [facility] [id number] 17:58:00 17:58:00 [facility] Results Test Description Test Time [...] (NOTE)RISK OF HEART LDLC) DISEASEPublishe d by [place] Islander Heart AssociationAnal yte Optimal Boderline Increased R iskCHOL <200 200-239 >240TRIG <150 150-199 >200HDL Male: >60 <40HDL Female: & gt;60 <50LDL <100 130- 159 >160LDL NEAR OPTIMAL IS 100- 129 VLDL (test code = VLDL) 15 mg/dL 5-40 N LDL/HDL (test code = LDLPHDL) 2 Comprehensive Metabolic [id number] 22:09:00 Test Item Value Reference Range Interpretation [...] validated by th e MDRD study and jovanny d be interpretedwith caution.eGFR Re sult Interpretation: eGFR > or = 60 is in t he Normal RangeeGF R < 60 may mean kidney diseaseeGFR < 1 5 may mean kidney failureRange s recommended by the National Kidney Foundation,http ://nkd ep.nih.gov [id number] 22:05:00 Test Item Value Reference Range Interpretation Comments NT ProBnp (test code = PBNP) 1920 pg/mL 0-124 H CBC with [id number] 18:24:00 Test Item Value Reference Range Interpretation [...] code = ALYMPH) 1.4 K/cumm 0.5-4.6 N Sullivan Abs (test code = AMONO) 0.3 K/cumm 0.0-1.2 N Eos Abs (test code = AEOS) 0.09 K/cumm 0.00-0.74 N Baso Abs (test code = ABASO) 0.0 K/cumm 0.00-0.21 N
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
[2020-11-20] MEDS ORDERED: IBUPROFEN 400 MG TAB ONE (00:20)
[2020-11-20] MEDS ORDERED: IBUPROFEN 200 MG TAB PO ONE (00:20)
[2020-11-20 00:35] VITALS: BP 125/68; TEMP 98.6; O2SAT 99
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
== END 2020-11-20 00:04 | disposition home or self-care (01) ==
LOC: ER 22:21
DX: R51.9 Headache, unspecified (principal); V49.40XA Driver injured in collision with unspecified motor vehicles in traffic accident, initial encounter; I10 Essential (primary) hypertension; E11.9 Type 2 diabetes mellitus without complications; J44.9 Chronic obstructive pulmonary disease, unspecified; Z79.82 Long term (current) use of aspirin; Z88.0 Allergy status to penicillin
CPT/HCPCS: 70450; 72125; 99284

== ENCOUNTER 2021-02-08 08:21 | Emergency (ER) | payer OTHER ==
[2021-02-08] MEDS ORDERED: FUROSEMIDE 40 MG/4 ML VIAL ONE (09:07)
[2021-02-08] MEDS ORDERED: FUROSEMIDE 40 MG TABLET ONE (09:10)
[2021-02-08 09:54] LABS: SARS-COV-2 RT PCR NEGATIVE (NEGATIVE)
--- NOTE | 2021-02-08 10:07 | RAD REPORT ---
EXAM DESCRIPTION: Rebecca Single View02/08/2021 9:56 am CLINICAL HISTORY: cough COMPARISON: August 2020 FINDINGS: The lungs appear clear of acute infiltrate. The heart is mildly to moderately enlarged. P acemaker leads are in place. IMPRESSION: No acute abnormalities displayed
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
--- NOTE | 2021-02-08 10:23 | ER ---
Nurse's Notes [facility] [place] Name: Sukh York Age: 61 yrs Sex: Female : 1960 Arrival Date: 02/08/2021 Time: : Bed 20 Private MD: Lucy Schaeffer Diagnosis: Acute sinusitis, unspecified Presentation: 02/08 08:25 Chief complaint: Patient states: "I am having a lot of drainage in the back of my jd3 throat that started Friday and coughing.". Coronavirus screen: cough unrelated to allergies, Client presents with at least one sign or symptom that may indicate coronavirus-19. Standard/surgical mask placed on the client. Provider contacted for isolation considerations. Ebola Screen: Patient negative for fever greater than or equal to 101.5 degrees Fahrenheit, and additional compatible Ebola Virus Disease symptoms. Initial Sepsis Screen: Does the patient meet any 2 criteria? No. Patient's initial sepsis screen is negative. Does the patient have a suspected source of infection? No. Patient's initial sepsis screen is negative. Risk Assessment: Do you want to hurt yourself or someone else? Patient reports no desire to harm self or others. Onset of symptoms was February 05, 2021. 08:25 Method Of Arrival: Ambulatory jd3 08:25 Acuity: RADHA 4 jd3 Historical: - Allergies: 08:27 PENICILLINS; jd3 - PMHx: 08:27 COPD; Diabetes - NIDDM; Hypertension; CHF; jd3 - Immunization history:: Adult Immunizations up to date, Client reports receiving the 2nd dose of the Covid vaccine, Date received: September 2020. - Social history:: Smoking status: Patient denies any tobacco usage or history of. Assessment: 08:53 General: Appears uncomfortable, Behavior is calm, cooperative, appropriate for age. tc5 Pain: Denies pain. Cardiovascular: HTN. Respiratory: Reports pt reports sinus drainage and congestion since friday. GI: No deficits noted. : No deficits noted. Vital Signs: 08:27 BP 134 / 102; Pulse 70; Resp 17 S; Temp 98.1(TE); Pulse Ox 100% on R/A; Weight 117.93 jd3 kg (R); Height 5 ft. 2 in. (157.48 cm) (R); Pain 8/10; 10:31 BP 105 / 61; Pulse 70; Resp 16; Pulse Ox 97% ; Pain 0/10; tc5 08:27 Body Mass Index 47.55 (117.93 kg, 157.48 cm) jd3 ED Course: 08:23 Patient arrived in ED. as 08:23 Lucy Schaeffer is Private Physician. as 08:26 Triage completed. jd3 08:27 Amalia Brothers F[facility]-C [facility] kb 08:27 Angel Fowler MD is Attending Physician. kb 08:28 Arm band placed on. jd3 08:30 Jaimee Abebe, RN is Primary Nurse. tc5 08:52 Strep Sent. tc5 09:55 Chest Single View XRAY In Process Unspecified. EDMS Administered Medications: 08:52 Drug: LaSIX (furosemide) 40 mg Route: PO; tc5 10:31 Follow up: Response: No adverse reaction; Blood pressure is lowered tc5 Outcome: 10:22 Discharge ordered by . kb 10:32 Patient left the ED. tc5 Signatures: Dispatcher [employer] EDMS Amalia Brothers FNP-C FNP-Ckb Martinez, Amelia as Davies, Jonathon, RN RN j Jaimee Abebe, DAY RN tc5 Corrections: (The following items were deleted from the chart) 08:28 08:27 BP 134 / 102; Pulse 70bpm; Resp 17bpm; Spontaneous; Pulse Ox 100% RA; Temp 98.1F jd3 Temporal; 117.93 kg Reported; Height 5 ft. 2 in. Reported; BMI: 47.5; Pain 3/10; jd3 09:06 08:52 CORONAVIRUS+MR.LAB.BRZ drawn and sent. tc5 EDMS 09:06 08:52 Influenza Screen (A \\T\\ B)+BA.LAB.BRZ drawn and sent. tc5 EDMS
[2021-02-08 10:36] VITALS: TEMP 98.1
[2021-02-08 10:37] VITALS: BP 105/61; O2SAT 97
== END 2021-02-08 10:32 | disposition home or self-care (01) ==
LOC: ER 08:21
DX: J01.90 Acute sinusitis, unspecified (principal); M54.2 Cervicalgia; I10 Essential (primary) hypertension; Z20.822 Contact with and (suspected) exposure to COVID-19; Z88.0 Allergy status to penicillin
CPT/HCPCS: 87070; 87081; 0240U; 71045; 99283; J1940

== ENCOUNTER 2022-01-01 09:06 | Observation (INO) | payer OTHER ==
--- OUTSIDE RECORDS SUMMARY | 2022-01-01 09:11 | XMS REPORT | Continuity of Care Document ---
:1960 Author Organization [facility] t Address [address] [place] [address] Care Team Providers Name Role Phone JACQUI CORONADO Primary Care Physician Unavailable Lucy Scheaffer Attending Clinician Unavailable Aleah Nicholson Attending Clinician Unavailable WOOD ROACH Attending Clinician Unavailable RADIOLOGY Attending Clinician Unavailable Wood Roach MD Attending Clinician [phone] Pob, [facility] Lab Main Attending Clinician Unavailable Kennedy_Lucio Attending Clinician Unavailable Tom Littlejohn MD Attending Clinician JACQUI CORONADO Attending Clinician Unavailable Kennedy_Lucio Admitting Clinician Unavailable JACQUI CORONADO Admitting Clinician Unavailable Payers Payer Name Policy Type Policy Number Effective Date Expiration Date Moi cano WELLMED/UHC DUAL [id number] 2021 COMP HMO D SNP 00:00:00 [place] OF [place] [id number] 2017 00:00:00 [employer] - [id number] 2020 [facility] 00:00:00 (MEDICARE REPLACEMENT/ADVANTA GE - [place]) [place] [id number] [place] [facility] - [id number] DUAL COMPLETE - DUAL ELIGIBLE - SNP (MEDICARE-MEDICAID REPLACEMENT HMO) Problems Condition Condition Condition Status Onset Resolution Last Treating Co mments Source Name Details Category Date Date Treatment Clinician Date Angina Angina Disease Active Univers pectoris pectoris 4-19 ity of 00:00: [place] 00 Medical Branch Diabetes Diabetes Disease Active Unive rs mellitus mellitus 4-19 ity of 00:00: [place] 00 Medical Branch Dyspnea Dyspnea Disease Active Univers 4-19 ity of 00:00: [place] 00 Medical Branch Sick sinus Sick sinus Disease Active U nivers syndrome syndrome 4-19 ity of 00:00: [place] 00 Medical Branch Ventricula Ventricula Disease Active U nivers r r 4-19 ity of premature premature 00:00: [place] s beats beats 00 Medical Branch HFrEF HFrEF Disease Active Univers (heart (heart 4-08 ity of failure failure 00:00: [place] with with 00 Medical reduced reduced Branch ejection ejection fraction) fraction) Essential Essential Disease Active Uni vers hypertensi hypertensi 4-08 it y of on on 00:00: [place] 00 Medical Branch Morbid Morbid Disease Active Univers obesity obesity 4-08 ity of with BMI with BMI 00:00: [place] of of 00 Medical 45.0-49.9, 45.0-49.9, Br anch adult adult DEE DEE DEE DEE Disease Active Univers (obstructi (obstructi 4-08 it y of ve sleep ve sleep 00:00: [place] apnea) apnea) 00 Medical Branch Acute Acute Disease Active 2020-05 Univers systolic systolic 0-31 ity of heart heart 00:00: [place] failure failure 00 Medical Branch 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 0-31 it y of athy athy 00:00: [place] 00 Medical Branch Paroxysmal Paroxysmal Disease Active U nivers ventricula ventricula 7-24 it y of r r 00:00: [place] tachycardi tachycardi 00 Me dical a a Branch Automatic Automatic Disease Active 2015-05 Uni vers implantabl implantabl 0-03 it y of e cardiac e cardiac 00[place]00[place] defibrilla defibrilla 00 Me dical tor in tor in Branch situ situ Allergies, Adverse Reactions, Alerts Allergy Allergy Status Severity Reaction(s) Onset Inactive Treating Comm ents Source Name Type Date Date Clinician Penicill Propensi Active [facility] ins ty to 5-24 College adverse 00:00: of reaction 00 Medicin s to e drug Penicill Propensi Active Other - See Seizures Univers ins ty to comments 3-22 ity of adverse 00:00: [place] reaction 00 Medical s Branch PENICILL Drug Active Other-Cmnt Univ ers INS Class 3-22 ity of 00:00: [place] 00 Medical Branch penicill Adverse Active Info Not Commo n in Reaction Available [facility] PENICILL Allergy Active [place] to [facility] e Group Social History Social Habit Start Date Stop Date Quantity Comments Source Alcohol intake [facility] Tobacco use and 2021-08-24 2021-08-24 Smokeless tobacco Un iversity of exposure 00:00:00 00:00:00 non-user [facility] History of 2014-05-19 Cigar Smoker University o f tobacco use 00:00:00 [facility] Sex Ass[birth year] At [birth year] Universit y of 00:00:00 00:00:00 [facility] Smoking Status Start Date Stop Date Source Former Smoker [facility] Ex-smoker 2021-08-24 00:00:00 2021-08-24 00:00:00 [facility] Medications Ordered Filled Start Stop Current Ordering Indication Dosage Frequency Signature Comments Components Source Medication Medication Date Date Medication? Clinician (SIG) Name Name bumetanide Yes 1mg Take 1 Unive rs 1 mg tablet 7-19 tablet by ity of 00:00: mouth in [place] 00 the Medical morning Branch and 1 tablet in the evening. glimepiride Yes 2mg Take 2 mg U nivers 2 mg tablet 4-08 by mouth ity of 16:21: daily with [place] 44 breakfast. Medical Branch glimepiride Yes 2mg Take 2 mg U nivers 2 mg tablet 4-08 by mouth ity of 16:21: daily with [place] 44 breakfast. Medical Branch spironolact Yes [id number] 12.5mg Take 0.5 Univers one 25 mg 4-08 tablets by ity of tablet 00:00: mouth [place] 00 daily. Medical Branch bumetanide Yes [id number] 1mg Take 1 Univers 1 mg tablet 4-08 tablet by ity of 00:00: mouth [place] 00 daily. Medical Branch empaglifloz Yes [id number] 10mg Take 1 Univers in 10 mg 4-08 tablet by ity of 00:00: mouth [place] 00 daily. Medical Branch spironolact Yes [id number] 12.5mg Take 0.5 Univers one 25 mg 4-08 tablets by ity of tablet 00:00: mouth [place] 00 daily. Medical Branch empaglifloz Yes [id number] 10mg Take 1 Univers in 10 mg 4-08 tablet by ity of 00:00: mouth [place] 00 daily. Medical Branch bumetanide 2021- No [id number] 1mg Take 1 Univers 1 mg tablet 4-08 07-19 tablet by it y of 00:00: 00:00 mouth [place] 00 :00 daily. Medical Branch metformin Yes 500mg Take 500 Uni vers HCl 2-01 mg by ity of (METFORMIN 14:05: mouth 2 [place] ORAL[place] 56 (two) Medical times Branch daily with meals. sacubitriL- Yes 1{tbl} Take 1 Un winter valsartan 2-01 tablet by ity o f 49-51 mg 14:05: mouth 2 [place] tablet 56 (two) Medical times Branch daily. carvediloL Yes 12.5mg Take 12.5 Univers 12.5 mg 2-01 mg by ity of tablet 14:05: mouth 2 [place] 56 (two) Medical times Branch daily with meals. MACARIO 2022-0 Yes Take by Univers ASPIRIN 2-01 mouth. ity of ORAL 14:05: [address] metformin Yes 500mg Take 500 Uni vers HCl 2-01 mg by ity of (METFORMIN 14:05: mouth 2 [place] OR[place]) (two) Medical times Branch daily with meals. sacubitriL- Yes 1{tbl} Take 1 Un winter valsartan 2-01 tablet by ity o f 49-51 mg 14:05: mouth 2 [place] tablet (two) Medical times Branch daily. carvediloL Yes 12.5mg Take 12.5 Univers 12.5 mg 2-01 mg by ity of tablet 14:05: mouth 2 [place] [id number] (two) Medical times Branch daily with meals. MACARIO Yes Take by [facility] ASPIRIN 2-01 mouth. ity of ORAL 14:05: [address] methocarbam methocarbam No 2 Q6H methocarba [place] ol 500 mg ol 500 mg 9-24 mol 500 mg da tablet Take tablet Take 00:00: tablet Medical 2 tablets 2 tablets 00 Take 2 Adela up every 6 every 6 tablets hours by hours by every 6 oral route. oral route. hours by oral route. Blood Blood 2018-05 Yes [place]ilo as Common Glucose Glucose 2-03 Hernandez directed Spir it Monitor Monitor 00:00: (DISPENSE - [facility] [address] [facility] Medical FORMULARY Center TO INSURANCE) Lancets Lancets 2018-05 Yes [place]ilo as Commo n 2-03 Hernandez directed Spirit 00:00: (dispense - [facility] [address] formulary [facility] to Medical insurance) [place] Blood Blood 2018-05 Yes Kilo as Common Glucose Glucose 2-03 Hernandez directed Spir it Test Strip Test Strip 00:00: (DISPENSE - [facility] [address] [facility]SE [facility] TEST Medical STRIPS Center FORMULARY TO INSURANCE) carvedilol Yes [id number] 12.5mg Take 12.5 David (COREG) 9-27 mg by College 12.5 MG 15:49: mouth at of tablet 25 bedtime. Medicin e Sacubitril- Yes Take by [place] marichuy Valsartan 9-27 mouth. College (ENTRESTO) 15:49: of 49-51 MG 25 Medicin TABS e potassium Yes [id number] 10meq Take 10 David chloride 9-27 mEq by College (KLOR-CON 15:49: mouth two of 10) 10 MEQ 25 times Medicin tablet daily. e Aspirin Yes [id number] Take by Benny cordoba (ASPIR-81 9-27 mouth. College OR) 15:49: of 25 Medicin e metformin Yes [id number] 500mg Take [address] [facility] (GLUCOPHAGE 9-27 mg by College ) 500 MG 15:49: mouth 2 of tablet 25 times Medicin daily e (with meals). glimepiride Yes [id number] 2mg Take [address] [facility] (AMARYL) 2 9-27 by mouth Colle ge MG tablet 15:49: at of 25 bedtime. Medicin e furosemide Yes 40mg Take 1 Tab B a[place] (LASIX) 40 7-09 by mouth Colle ge MG tablet 00:00: two times of 00 daily. Medicin e spironolact Yes 25mg Take [address] [facility] one 4-24 by mouth [place] (ALDACTONE) 00:00: daily. of 25 MG 00 Medicin tablet e albuterol Yes 2.5mg Inhale 3 Uni vers 2.5 mg /3 3-22 mL every 4 ity of mL (0.083 00:00: (four) [place] %) 00 hours. May Medical nebulizer also Branch solution nebulize one extra every 6 hours. albuterol Yes 2.5mg Inhale 3 Uni vers 2.5 mg /3 3-22 mL every 4 ity of mL (0.083 00:00: (four) [place] %) 00 hours. May Medical nebulizer also Branch solution nebulize one extra every 6 hours. carvedilol carvedilol No carvedilol [place] 6.25 mg [...] MOUTH NEEDED NEEDED EVERY 8 HOURS NEEDED accu-chek accu-chek No accu-chek [place] guide guide [...] inhalation Glimepiride Glimepiride Yes Kilo 1 tablet Common [facility] Macario Macario Yes Kilo 1 tablet Common Aspirin EC Aspirin EC Hernandez Sp loren Low Dose Low Dose - [facility] Lisinopril Lisinopril Yes Kilo 1 tablet Common Hernandez [facility] Furosemide Furosemide Yes Kilo 1 tablet Common Hernandez in am [facility] Coreg Coreg Yes Kilo 1 tablet Common Hernandez [facility] Metformin Metformin Yes Kilo 1 tablet Common HCl HCl Hernandez with meals [facility] Entresto Entresto Yes Kilo 1 tablet C ommon 49/51mg 49/51mg Hernandez [facility] Klor-Con 10 Klor-Con 10 2019- No Kilo 1 tablet Common 05-23 Hernandez Spirit 00:00 - [facility] :00 [facility] Vital Signs Vital Name Observation Time Observation Value Comments Source BP Diastolic 2020-09-14 00:00:00 68 mm[Hg] [facility] Height 2020-09-14 00:00:00 61 [in_i] [facility] BMI (Body Mass 2020-09-14 00:00:00 48 kg/m2 [facility] Medical Index) Group BP Systolic 2020-09-14 00:00:00 102 mm[Hg] [facility] Body Weight 2020-09-14 00:00:00 254.2 [lb_av] [facility] BP Diastolic 2020-05-31 00:00:00 79 mm[Hg] [facility] Height 2020-05-31 00:00:00 61 [in_i] [facility] BMI (Body Mass 2020-05-31 00:00:00 49.3 kg/m2 [facility] Medical Index) Group BP Systolic 2020-05-31 00:00:00 116 mm[Hg] [facility] Body Weight 2020-05-31 00:00:00 260.7 [lb_av] [facility] BP Diastolic 2020-03-07 00:00:00 66 mm[Hg] [facility] Height 2020-03-07 00:00:00 61 [in_i] [facility] BMI (Body Mass 2020-03-07 00:00:00 49.4 kg/m2 [facility] Medical Index) Group BP Systolic 2020-03-07 00:00:00 115 mm[Hg] [facility] Body Weight 2020-03-07 00:00:00 261.5 [lb_av] [facility] Systolic blood 2019-02-12 15:46:00 112 mm[Hg] [facility] of pressure Medicine Diastolic blood 2019-02-12 15:46:00 72 mm[Hg] [facility] of pressure Medicine Heart rate 2019-02-12 15:46:00 56 /min [facility] ol[facility] of Medicine Body height 2019-02-12 15:46:00 154.9 cm [facility] Body weight 2019-02-12 15:46:00 117.028 kg [facility] of Medicine BMI 2019-02-12 15:46:00 48.75 kg/m2 [facility] Oxygen saturation in 2019-02-12 15:46:00 98 /min [facility] Arterial blood by Medicine Pulse oximetry Systolic blood 2019-02-12 15:46:00 112 mm[Hg] [facility] of pressure Medicine Diastolic blood 2019-02-12 15:46:00 72 mm[Hg] [facility] of pressure Medicine Heart rate 2019-02-12 15:46:00 56 /min [facility] of Medicine Body height 2019-02-12 15:46:00 154.9 cm [facility] Body weight 2019-02-12 15:46:00 117.028 kg [facility] of Medicine BMI 2019-02-12 15:46:00 48.75 kg/m2 [facility] of [facility] Oxygen saturation in 2019-02-12 15:46:00 98 /min [facility] Arterial blood by Medicine Pulse oximetry Procedures Procedure Date / Time Performing Clinician Source Performed MAGNESIUM 2021-11-28 15:33:00 Araceli [facility] BASIC METABOLIC PANEL (NA, 2021-11-28 15:33:00 Miley houston, [facility] K, CL, CO2, GLUCOSE, BUN, [facility] Branch CREATININE, CA) N-TERMINAL PRO-BNP 2021-11-28 15:33:00 Araceli [facility] ELECTROCARDIOGRAM COMPLETE 2019-02-12 16:12:00 Tom Littlejohn [facility] Automatic Defibrillator [place] [facility] Plan of Care Planned Activity Planned Date Details Comments Source Future Scheduled BASIC METABOLIC PANEL Ordered: [facility] College Test [code = 87157-3] 02/12/2019 of Medicine Future Scheduled LIPID PANEL [code = Ordered: [facility] Test 46214-0] 02/12/2019 of Medicine Future Scheduled LIPOPROTEIN A (LPA) [code Ordered: [facility] Test = 72754-0] 02/12/2019 of Medicine Future Scheduled ELECTROCARDIOGRAM [facility] Test COMPLETE [code = 71003] of M edicine Future Scheduled COLON CANCER SCREENING: [facility] Test COLONOSCOPY [code = COLON of Medicine CANCER SCREENING: COLONOSCOPY] Future Scheduled MAMMOGRAM ANNUAL [code = [facility] Test MAMMOGRAM ANNUAL] of Medicin e Future Scheduled MEDICARE AWV [code = [facility] Test MEDICARE AWV] of Medicine Future Scheduled TETANUS SHOT (ADULT) [facility] Test [code = TETANUS SHOT of Medi cine (ADULT)] Future Scheduled Diabetic foot examination [facility] Test (regime/therapy) [code = of Medicine 326537520] Future Scheduled ANNUAL DIABETIC [facility] C ollege Test RETINOPATHY SCREENING of Med icine [code = ANNUAL DIABETIC RETINOPATHY SCREENING] Future Scheduled BMI FOLLOW UP PLAN [code [facility] Test = BMI FOLLOW UP PLAN] of Med icine Future Scheduled HEPATITIS C SCREENING Ba [facility] Test [code = HEPATITIS C of Medic ine SCREENING] Future Scheduled HIV SCREENING [code = HIV [facility] Test SCREENING] of Medicine Future Scheduled CERVICAL CANCER SCREENING [facility] Test 3 YEAR FOLLOW UP [code = of Medicine CERVICAL CANCER SCREENING 3 YEAR FOLLOW UP] Future Scheduled FLU VACCINE > 6 MONTHS B [facility] College Test [code = FLU VACCINE > 6 of M edicine MONTHS] Encounters Start End Encounter Admission Attending Care Care Encounter Source Date/Time Date/Time Type Type Clinicians Facility Department ID 2021-11-30 Outpatient MARYANN Schaeffer [facility] [id number] Common 07:54:00 Lucy [facility] 2021-09-05 Outpatient MARYANN Schaeffer [facility] [id number] Common 10:56:01 Lucy [facility] 2021-06-13 Outpatient Cowden, STLMLC STLMLC [id number] Common 14:38:32 Lucy [facility] 2021-06-13 Outpatient Cowden, STLMLC STLMLC [id number] Common 14:35:38 Lucy [facility] 2021-06-13 Outpatient Cowden, STLMLC STLMLC [id number] Common 14:01:32 Lucy 12569 [facility] 2021-06-13 Outpatient Cowden, STLMLC STLMLC [id number] Common 13:44:49 Lucy 19181 [facility] 2021-06-13 Outpatient Cowden, STLMLC STLMLC [id number] Common 13:27:14 Lucy 37220 [facility] 2021-06-13 Outpatient Cowden, STLMLC STLMLC [id number] Common 12:57:09 Lucy 22467 [facility] 2021-06-13 Outpatient Cowden, STLMLC STLMLC [id number] Common 12:25:50 Lucy 65812 [facility] 2021-06-13 Outpatient Millender, STLMLC STLMLC [id number] Common 11:42:20 Aleah 06434 [facility] 2021-06-13 Outpatient Millender, STLMLC STLMLC [id number] Common 11:39:36 Aleah 25836 [facility] 2021-06-13 Outpatient Millender, STLMLC STLMLC [id number] Common 11:24:42 Aleah 47246 [facility] 2021-06-13 Outpatient Millender, STLMLC STLMLC [id number] Common 11:08:27 Aleah 97706 [facility] 2022-02-25 2022-02-25 Outpatient R ITURRIZAGA- [facility] [id number] Univers 13:30:00 13:30:00 COLTON [id number] ity of [facility] 2022-01-03 2022-01-03 Outpatient R RADIOLOGY [facility] [id number] Univers 09:00:00 09:00:00 [id number] ity of [facility] 2021-12-19 2021-12-19 Outpatient R RADIOLOGY [facility] RAD [id number] Univers 10:20:00 10:20:00 ity of [facility] 2021-12-19 2021-12-19 Outpatient R RADIOLOGY [facility] [id number] Univers 00:00:00 00:00:00 [id number] ity of [facility] 2021-12-18 2021-12-18 Outpatient R [facility] [id number] Univers 16:30:00 16:30:00 [id number] ity [facility] [place] 2021-12-04 2021-12-04 ambulatory STLMLC STLMLC [id number] Common 00:00:00 00:00:00 [facility] 2021-12-04 2021-12-04 [facility] [id number] Univers 00:00:00 00:00:00 Colton ARACELIS [id number] ity of [place] Syed [facility] [id number] [place] [id number] [address] 2021-11-28 2021-11-28 Yard Hand Arlette, Lena Lab Main [facility] [id number] Univers 10:00:00 10:15:00 Visit BreWood Segura [place] 3 [id number] ity of [place] [id number] [place] PROFESS[place] [id number] Hi dical [place] [address] Branch [facility] 2021-10-31 2021-10-31 ambulatory STLMLC STLMLC [id number] Common 00:00:00 00:00:00 [facility] 2021-09-04 2021-09-04 ambulatory STLMLC STLMLC [id number] Common 00:00:00 00:00:00 [facility] 2021-07-30 2021-07-30 ambulatory STLMLC STLMLC [id number] Common 00:00:00 00:00:00 [facility] 2021-06-05 2021-06-05 ambulatory STLMLC STLMLC [id number] Common 00:00:00 00:00:00 [facility] 2021-06-05 2021-06-05 ambulatory STLMLC STLMLC [id number] Common 00:00:00 00:00:00 [facility] 2021-05-14 2021-05-14 ambulatory STLMLC STLMLC [id number] Common 00:00:00 00:00:00 [facility] 2021-05-14 2021-05-14 ambulatory STLMLC STLMLC [id number] Common 00:00:00 00:00:00 [facility] 2021-05-14 2021-05-14 ambulatory STLMLC STLMLC [id number] Common 00:00:00 00:00:00 [facility] 2021-03-30 2021-03-30 ambulatory STLMLC STLMLC [id number] Common 00:00:00 00:00:00 [facility] 2021-03-26 2021-03-26 ambulatory STLMLC STLMLC [id number] Common 00:00:00 00:00:00 [facility] 2021-03-13 2021-03-13 ambulatory STLMLC STLMLC [id number] Common 00:00:00 00:00:00 [facility] 2021-03-07 2021-03-07 Outpatient STLMLC STLMLC [id number] Common 00:00:00 00:00:00 [facility] 2021-02-26 2021-02-26 Outpatient STLMLC STLMLC [id number] Common 00:00:00 00:00:00 [facility] 2021-01-18 2021-01-18 Outpatient STLMLC STLMLC [id number] Common 00:00:00 00:00:00 [facility] 2020-12-20 2020-12-20 Outpatient STLMLC STLMLC [id number] Common 00:00:00 00:00:00 [facility] 2020-12-01 2020-12-01 Outpatient STLMLC STLMLC [id number] Common 00:00:00 00:00:00 [facility] 2020-11-30 2020-11-30 Outpatient STLMLC STLMLC [id number] Common 00:00:00 00:00:00 [facility] 2020-11-21 2020-11-21 Outpatient STLMLC STLMLC [id number] Common 00:00:00 00:00:00 [facility] 2020-10-18 2020-10-18 Outpatient STLMLC STLMLC [id number] Common 00:00:00 00:00:00 [facility] 2020-10-06 2020-10-06 Outpatient STLMLC STLMLC [id number] Common 00:00:00 00:00:00 [facility] 2020-09-25 2020-09-25 Outpatient STLMLC STLMLC [id number] Common 00:00:00 00:00:00 [facility] 2020-09-15 2020-09-15 Outpatient Yan_W MMG MMG [id number] [place] 07:15:00 07:15:00 0517 [facility] 2020-09-14 2020-09-14 Outpatient Yan_W MMG MMG [id number] [place] 03:44:00 03:44:00 0429 [facility] 2020-09-14 2020-09-14 Outpatient Yan_W MMG MMG [id number] [place] 03:44:00 03:44:00 0430 [facility] 2020-09-14 2020-09-14 Mansoor Lemus MMG [place] - [id number] [place] 00:00:00 00:00:00 : Ck Plata [facility] [address], [facility], Otolaryngol CAROL belloNAVA [id number] , Ph. 2020-09-13 2020-09-13 Outpatient STLMLC STLMLC [id number] Common 00:00:00 00:00:00 [facility] 2020-09-13 2020-09-13 Outpatient STLMLC STLMLC [id number] Common 00:00:00 00:00:00 [facility] 2020-09-08 2020-09-08 Outpatient Yan_W MMG MMG [id number] [place] 02:57:00 02:57:00 0423 [facility] 2020-09-05 2020-09-05 Outpatient STLMLC STLMLC [id number] Common 00:00:00 00:00:00 [facility] 2020-06-01 2020-06-01 Outpatient Yan_W MMG MMG [id number] [place] 09:10:00 09:10:00 0203 [facility] 2020-05-31 2020-05-31 Outpatient Yan_W MMG MMG [id number] [place] 09:49:00 09:49:00 0113 [facility] 2020-05-31 2020-05-31 SHUN Garcia [place] - [id number] [place] 00:00:00 00:00:00 MD: Ck Plata [facility] [address], [facility], Otolaryngol [facility] [phone] , Ph. 2020-04-05 2020-04-05 Outpatient Yan_W MMG MMG [id number] [place] 02:30:00 02:30:00 1118 Medical Group 2020-03-13 2020-03-13 Outpatient Yan_W MMG MMG [id number] [place] 09:57:00 09:57:00 1031 Medical Group 2020-03-13 2020-03-13 Outpatient Yan_W MMG MMG [id number] [place] 09:56:00 09:56:00 1026 Medical Group 2020-03-07 2020-03-07 Outpatient Yan_W MMG MMG [id number] [place] 02:52:00 02:52:00 1020 Medical Group 2020-03-07 2020-03-07 Outpatient Yan_W MMG MMG [id number] [place] 02:52:00 02:52:00 1025 Medical Group 2020-03-07 2020-03-07 Mansoor Lemus, MMG [place] - [id number] [place] 00:00:00 00:00:00 : Ck Plata [facility] [place] [address], [facility], Otolaryngol [place] [facility] [id number] , Ph. 2020-02-29 2020-02-29 [id number] [place] 12:29:00 12:29:00 1013 Medical Group 2019-12-27 2019-12-27 [facility] [id number] Common 11:15:00 11:15:[address] [facility] 2019-12-27 2019-12-27 Out[facility] [id number] Common 09:19:00 09:19:[address] [facility] 2019-10-26 2019-10-26 Outpatient [facility] [id number] Common 08:15:00 08:15:[address] [facility] 2019-10-20 2019-10-20 Outpatient [facility] [id number] Common 23:40:00 23:40:[address] [facility] 2019-10-20 2019-10-20 [facility] [id number] Common 14:40:00 14:40:[address] [facility] 2019-08-19 2019-08-19 [facility] [id number] Common 11:54:00 11:54:[address] [facility] 2019-07-25 2019-07-25 [facility] [id number] Common 13:11:00 13:11:[address] [facility] 2019-07-20 2019-07-20 [facility] [id number] Common 11:00:00 11:00:[address] [facility] 2019-04-24 2019-04-24 [facility] [id number] Common 03:26:00 03:26:[address] [facility] [address] [facility] 2019-04-20 2019-04-20 [facility] [id number] Common 09:40:00 09:40:[address] [facility] [address] [facility] 2019-03-22 2019-03-22 Outpatient Judy Kim [id number] Common 14:55:00 14:55:00 Yanick Herndon Sp loren DO DO [facility] 2019-02-12 2019-02-12 Office ALISSON Littlejohn [id number] 10:42:57 11:02:57 Visit Tom L AMBULATOR [id number] Y [id number] [facility] 2019-02-12 2019-02-12 Office JOSÉ MIGUEL Littlejohn [id number] [place] [address] 10:42:57 11:02:57 Visit Tom L AMBULATOR [id number] College Y [id number] [facility] 315 e 2019-01-19 2019-01-19 [facility] [id number] Common 14:40:00 14:40:[address] [facility] [address] [facility] 2018-11-04 2018-11-04 [facility] [id number] Common 12:03:00 12:03:[address] [facility] [address] [facility] 2018-08-26 2018-08-26 [facility] [id number] Common 11:20:00 11:20:[address] [facility] [address] [facility] 2018-08-14 2018-08-14 Outpatient [facility] [id number] Common 14:30:00 14:30:[address] [facility] [address] [facility] 2018-08-03 2018-08-03 [facility] [id number] Common 12:32:00 12:32:[address] [facility] 2018-06-01 2018-06-01 [facility] [id number] Common 10:15:00 10:15:[address] [facility] 2018-03-02 2018-03-02 [facility] [id number] Common 09:00:00 09:00:[address] [facility] 2018-01-30 2018-01-30 [facility] [id number] Common 11:30:00 11:30:[address] [facility] 2018-01-20 2018-01-20 [facility] [id number] Common 09:46:00 09:46:[address] [facility] 2018-01-13 2018-01-13 [facility] [id number] Common 10:00:00 10:00:00 [facility] 2017-12-25 2017-12-25 [facility] [id number] Common 10:56:00 10:56:[address] [facility] 2017-12-09 2017-12-09 [facility] [id number] Common 21:03:00 21:03:[address] [facility] 2017-12-09 2017-12-09 [facility] [id number] Common 09:45:00 09:45:[address] [facility] 2017-12-03 2017-12-03 [facility] [id number] Common 10:45:00 10:45:[address] [facility] 2017-09-05 2017-09-05 [facility] [id number] Common 16:00:00 16:00:00 t [facility] 2017-07-11 2017-07-11 Outpatient Yahaira CORONADO [facility] [id number] 17:58:00 17:58:00 [facility] Results Test Description Test Time Test Comments Results Result Comments Source BASIC METABOLIC PANEL (41750)(NA, K, CL, CO2, GLUCOSE, BUN, 2021-11-28 17:43:49 CREATININE, CA) Test Item Value Reference Range Interpretation Comme nts NA (test code = 8925183865) 141 mmol/L 135-145 K (test code = 6420134629) 3.6 mmol/L 3.5-5 CL (test code = 8791355455) 104 mmol/L 98-108 CO2 TOTAL (test code = 7381350742) 28 mmol/L 23-31 AGAP (test code = 9712791948) 2-16 BUN (test code = 7086704493) 15 mg/dL 7-23 GLUCOSE (test code = 7092101416) 238 mg/dL 70-110 H CREATININE (test code = 0.52 mg/dL 0.5-1.04 4399633552) CALCIUM (test code = 3376580725) 8.6 mg/dL 8.6-10.6 eGFR (test code = 8730850209) mL/min/1.73m2 CHENCHO (test code = CHENCHO) Association of Glomerular Filtration Rate (GFR) and Staging of Kidney Disease* + +-------- + ------+| GFR (mL/min/1.73 m2) ?| With Kidney Damage ?| ?Without Kidney Damage+ +-- + +| ?>90 ?| ?Stage one ?| ? Normal ?+ +------- + -------+| ?60-89 ?| ?Stage two ?| ? Decreased GFR ? + +-------- + ------+| ?30-59 ?| ?Stage three ?| ? Stage three ? + +-------- + ------+| ?15-29 ?| ?Stage four ? | ? Stage four ?+ +------- + -------+| ?<15 (or dialysis) ? ?| ?Stage five ? | ? Stage five ?+ +------- + -------+ *Each stage assumes the associated GFR level has been in effect for at least three months. ?Stages 1 to 5, with or without kidney disease, indicate chronic kidney disease. Notes: Determination of stages one and two (with eGFR >59mL/min/1.73 m2) requires estimation of kidney damage for at least three months as defined by structural or functional abnormalities of the kidney, manifested by either:Pathological abnormalities or Markers of kidney damage (including abnormalities in the composition of the blood or urine or abnormalities in imaging tests). Lab Interpretation (test code = Abnormal 85885-0) [facility] [id number] 17:36:04 Test Item Value Reference Range Interpretation Comments NT-proBNP (test code 977 pg/mL See_Comment H [Autom ated = [id number]) message] The system which generated this result transmitted reference range : <=125. The reference range was not used to interpret this result as normal/abnormal . CHENCHO (test code = CHENCHO) Biotin has been reported to cause a negative bias, interpret results relative to patient's use of biotin. Lab Interpretation Abnormal (test code = 63775-2) [id number] 17:29:44 Test Item Value Reference Range Interpretation Comments MAGNESIUM (test code = 0944444986) 1.8 mg/dL 1.7-2.4 Lab Interpretation (test code = Normal 10415-6) [facility] Center[facility] [id number] 22:09:00 Test Item Value Reference Range Interpretation Comments Cholesterol (test 107 mg/dL 0-200 N code = CHOL) Triglycerides (test 76 mg/dL 9-200 N code = TRIG) HDL (test code = 36 mg/dL 50-60 L HDL) Chol/HDL (test code 3.0 Ratio 0.0-4.4 N = CHOLPHDL) LDL, Calculated 56 0-130 N (NOTE)RISK O F HEART (test code = LDLC) DISEASEPu blished by [place] Heart AssociationAnal yte Optimal Boderli ne Increased RiskC HOL <200 200-239 >240TRI G <150 150-199 >200HDL Male: >60 <40HDL Fema le: >60 <50LDL <100 130 -159 >160LDL NEAR OP TIMAL IS 100-129 VLDL (test code = 15 mg/dL 5-40 N VLDL) LDL/HDL (test code = 2 LDLPHDL) Comprehensive Metabolic [id number] 22:09:00 Test Item Value Reference Range Interpretation [...] ars ofage have not been validated by madie austin MDRD study and jovanny d be interpretedwith caution.eGFR Re sult Interpretation: eGFR > or = 60 is in t he Normal RangeeGF R < 60 may mean kidney diseaseeGFR < 1 5 may mean kidney failureRange s recommended by the National Kidney Foundation,http ://nkd ep.nih.gov [id number] 22:05:00 Test Item Value Reference Range Interpretation Comments NT ProBnp (test code = PBNP) 1920 pg/mL 0-124 H CBC with [id number] 18:24:00 Test Item Value Reference Range Interpretation [...] code = ALYMPH) 1.4 K/cumm 0.5-4.6 N [place] Abs (test code = AMONO) 0.3 K/cumm 0.0-1.2 N Eos Abs (test code = AEOS) 0.09 K/cumm 0.00-0.74 N Baso Abs (test code = ABASO) 0.0 K/cumm 0.00-0.21 N"
[2022-01-01 09:49] LABS: Absolute Lymphocytes (CBC) 1.7 K/uL (0.7-4.9); Hematocrit 43.1 % (36.0-45.0); Lymphocytes % 26.8 % (15.3-44.8); MCV 83.7 fL (80-100); RBC Red Blood Cell Count 5.15 M/uL (3.86-4.86)
[2022-01-01] MEDS ORDERED: ENOXAPARIN 40 MG/0.4 ML SQ ONE (10:04)
[2022-01-01] MEDS ORDERED: KCL 20 MEQ/100 mL IVPB 0 ML IV ONE (10:04)
--- NOTE | 2022-01-01 10:06 | RAD REPORT ---
EXAM DESCRIPTION: RAD - Chest Single View - 01/01/2022 9:46 am CLINICAL HISTORY: CHEST PAIN COMPARISON: Portable 02/08/2021 TECHNIQUE: AP portable chest image was obtained 01/01/2022 9:46 am . FINDINGS: Lung volumes are low. No focal mass or consolidation. Interstitial pattern is similar to c omparison with no measurable failure or volume overload. Defibrillator is in place. Heart size is prominent but stable. No acute vascular engorgement. No janice urable pleural effusion and no pneumothorax. No acute bony abnormality seen. No acute aortic findings suspected. IMPRESSION: No acute cardiopulmonary process.
[2022-01-01 12:03] LABS: Potassium 3.1 mmol/L (3.5-5.1)
[2022-01-01 12:04] LABS: Troponin High Sensitivity 24.7 pg/mL (<58.9)
--- NOTE | 2022-01-01 13:18 | EDPHYS ---
Physician Documentation [facility] [place] Name: Sukh York Age: 61 yrs Sex: Female : 1960 Arrival Date: 01/01/2022 Time: 09:07 Bed 14 Private MD: ED Physician Manpreet Ponce HPI: 01/01 09:21 This 61 yrs old Female presents to ER via EMS with complaints of dizziness, ms3 nausea, defibrillator fired. 09:21 The patient presents with dizziness. Onset: The symptoms/episode began/occurred 40 ms3 minute(s) ago. Context: occurred at home, occurred while the patient was at home in the shower. Modifying factors: The symptoms are alleviated by nothing, the symptoms are aggravated by nothing. Associated signs and symptoms: Pertinent positives: Defibrillator fired. Patient's baseline: Neuro: alert and fully oriented, Motor: no deficits, Ambulation: walks without assistance, Speech: normal. Historical: - Allergies: 09:10 PENICILLINS; ll1 - PMHx: 09:10 CHF; Diabetes - NIDDM; COPD; Hypertension; ll1 - PSHx: 09:10 Defibrillator; ll1 - Immunization history:: Client reports receiving the 2nd dose of the Covid vaccine. - Social history:: Smoking status: Patient denies any tobacco usage or history of. ROS: 09:26 Constitutional: Negative for fever, and chills. Neck: Negative for injury, pain, and ms3 swelling. 09:26 Cardiovascular: Positive for Defibrillator fired. 09:26 Abdomen/GI: Positive for nausea. 09:26 Neuro: Positive for dizziness. 09:26 All other systems are negative. Exam: 09:26 Constitutional: This is a well developed, well nourished patient who is awake, alert, ms3 and in no acute distress. Head/Face: Normocephalic, atraumatic. Neck: Trachea midline, no cervical lymphadenopathy. Supple, full range of motion without nuchal rigidity, or vertebral point tenderness. No Meningismus. Chest/axilla: Normal chest wall appearance and motion. Nontender with no deformity. Cardiovascular: Regular rate and rhythm with a normal S1 and S2. No gallops, murmurs, or rubs. Normal PMI, no JVD. No pulse deficits. Respiratory: Lungs have equal breath sounds bilaterally, clear to auscultation and percussion. No rales, rhonchi or wheezes noted. No increased work of breathing, no retractions or nasal flaring. Abdomen/GI: Soft, non-tender, with normal bowel sounds. No distension or tympany. No guarding or rebound. No evidence of tenderness throughout. Skin: Warm, dry with normal turgor. Normal color with no rashes, no lesions, and no evidence of cellulitis. MS/ Extremity: Pulses equal, no cyanosis. Neurovascular intact. Full, normal range of motion. Neuro: Awake and alert, GCS 15, oriented to person, place, time, and situation. Cranial nerves II-XII grossly intact. Motor strength 5/5 in all extremities. Sensory grossly intact. Cerebellar exam normal. Normal gait. Psych: Awake, alert, with orientation to person, place and time. Behavior, mood, and affect are within normal limits. 09:35 ECG was reviewed by the Attending Physician. ms3 Vital Signs: 09:12 BP 109 / 60; Pulse 50; Resp 17; Temp 97.6; Pulse Ox 95% on R/A; Pain 7/10; ll1 10:00 BP 103 / 71; Pulse 71; Resp 12 S; Pulse Ox 95% on R/A; jg9 11:00 BP 104 / 74; Pulse 66; Resp 16 S; Pulse Ox 97% on R/A; jg9 11:30 BP 96 / 59; Pulse 63; Resp 20 S; Pulse Ox 97% ; jg9 12:30 BP 95 / 55; Pulse 64; Resp 16 S; Pulse Ox 97% on R/A; jg9 13:30 BP 95 / 63; Pulse 60; Resp 16 S; Pulse Ox 94% ; jg9 14:00 BP 99 / 52; Pulse 62; Resp 20 S; Pulse Ox 94% ; jg9 16:00 BP 92 / 59; Pulse 72; Resp 15 S; Pulse Ox 96% on R/A; jg9 MDM: 09:15 Patient medically screened. ms3 09:26 Differential diagnosis: cardiac arrhythmia, Electrolyte abnormality vs NE. ms3 13:17 Data reviewed: vital signs, nurses notes. 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 Test interpretation: by ED physician or midlevel provider: ECG. Counseling: I had a detailed discussion with the patient and/or guardian regarding: the historical points, exam findings, and any diagnostic results supporting the discharge/admit diagnosis, lab results, radiology results, the need for outpatient follow up. ED course: Patient remains in stable condition in the ED. [facility] has been notified of need for device interrogation.. 01/01 09:20 Order name: Basic Metabolic Panel; Complete Time: 12:19 ms3 01/01 09:20 Order name: CBC with Diff; Complete Time: 10:21 ms3 01/01 09:20 Order name: NT PRO-BNP; Complete Time: 12:19 ms3 01/01 09:20 Order name: Troponin HS; Complete Time: 12:19 ms3 01/01 14:11 Order name: SARS RAPID bd 01/01 18:56 Order name: Magnesium EDMS 01/01 09:20 Order name: XRAY Chest (1 view); Complete Time: 10:21 ms3 01/01 19:09 Order name: Troponin High Sensitivity EDMS 01/01 21:08 Order name: Glucose, Ancillary Testing EDMS 01/02 00:54 Order name: Troponin High Sensitivity EDMS 01/02 02:45 Order name: CBC with Automated Diff EDMS 01/02 03:00 Order name: Basic Metabolic Panel EDMS 01/02 07:58 Order name: Glucose, Ancillary Testing EDMS 01/02 12:22 Order name: Glucose, Ancillary Testing EDMS 01/01 09:20 Order name: EKG; Complete Time: 09:22 ms3 01/01 09:20 Order name: Cardiac monitoring; Complete Time: 09:25 ms3 01/01 09:20 Order name: EKG - Nurse/Tech; Complete Time: 09:31 ms3 01/01 09:20 Order name: IV Saline Lock; Complete Time: 09:31 ms3 01/01 09:20 Order name: Labs collected and sent; Complete Time: 09:31 ms3 01/01 09:20 Order name: O2 Sat Monitoring; Complete Time: 09:25 ms3 EC:35 Rate is 69 beats/min. Rhythm is regular. Left axis deviation noted. Clinical ms3 impression: NSR w/ Non-specific ST/T Changes and LBBB. Interpreted by me. Reviewed by me. Administered Medications: No medications were administered Disposition Summary: 01/01/22 13:17 Hospitalization Ordered Hospitalization Status: Observation ms3 Provider: Antione León ms3 Condition: Stable ms3 Problem: new ms3 Symptoms: are unchanged ms3 Bed/Room Type: Standard ms3 Location: [facility] ER HOLD(01/01/22 18:54) bd Room Assignment: ERHOLD-(01/01/22 18:54) bd Diagnosis - Defibrillator discharge ms3 - Congestive Heart Failure ms3 Forms: - Medication Reconciliation Form ms3 - SBAR form ms3 Signatures: Dispatcher [employer] EDMS Verona Hinson Lynsay, RN RN ll1 Manpreet Ponce DO DO ms3 Corrections: (The following items were deleted from the chart) 09:12 09:10 PSHx: defibrilator; ll1 ll1 14:04 09:20 Oxygen Per Protocol ordered. ms3 jg9 18:54 13:17 Telemetry/MedSurg (observation) ms3 bd 18:54 13:17 ms3 bd
--- NOTE | 2022-01-01 13:18 | ER ---
Nurse's Notes [facility] [place] Name: Sukh York Age: 61 yrs Sex: Female : 1960 Arrival Date: 01/01/2022 Time: 09:07 Bed 14 Private MD: Diagnosis: Defibrillator discharge;Congestive Heart Failure Presentation: 01/01 09:12 Chief complaint: Patient states: Dizzy, nausea, palpitations, L chest sore for 1 day. ll1 Felling sick with cough/congestion since Friday. No fever. Coronavirus screen: Vaccine status: Patient reports receiving the 2nd dose of the covid vaccine. Client denies travel out of the [place] in the last 14 days. congestion, cough unrelated to allergies, difficulty breathing, fatigue, muscle pain, sore throat, Client presents with at least one sign or symptom that may indicate coronavirus-19. Standard/surgical mask placed on the client. Ebola Screen: Patient denies travel to an Ebola-affected area in the 21 days before illness onset. Initial Sepsis Screen: Does the patient meet any 2 criteria? No. Patient's initial sepsis screen is negative. Does the patient have a suspected source of infection? Yes: Productive cough/pneumonia. Risk Assessment: Do you want to hurt yourself or someone else? Patient reports no desire to harm self or others. Onset of symptoms was December 28, 2021. 09:12 Method Of Arrival: EMS ll 09:12 Acuity: RADHA 3 ll1 Triage Assessment: 09:14 General: Appears uncomfortable, Behavior is calm, cooperative, appropriate for age. ll1 Pain: Complains of pain in L chest Pain currently is 7 out of 10 on a pain scale. Quality of pain is described as aching, "sore". Cardiovascular: Reports chest pain, shortness of breath. Respiratory: Reports shortness of breath cough that is. Historical: - Allergies: 09:10 PENICILLINS; ll1 - PMHx: 09:10 CHF; Diabetes - NIDDM; COPD; Hypertension; ll1 - PSHx: 09:10 Defibrillator; ll1 - Immunization history:: Client reports receiving the 2nd dose of the Covid vaccine. - Social history:: Smoking status: Patient denies any tobacco usage or history of. Screenin:31 Abuse screen: Denies threats or abuse. Denies injuries from another. Nutritional jg9 screening: No deficits noted. Tuberculosis screening: No symptoms or risk factors identified. Fall Risk None identified. Assessment: 10:00 Reassessment: Patient appears in no apparent distress at this time. No changes from jg9 previously documented assessment. Patient and/or family updated on plan of care and expected duration. Pain level reassessed. Patient is alert, oriented x 3, equal unlabored respirations, skin warm/dry/pink. 10:55 Reassessment: Fe blancas promotions representative of [facility] interrogator called this nurse jg9 and advised me that we had an interrogator in our department that we could use to interrogate the defibrillator and it is quick-this nurse asked around and looked and was not able to locate this device, this nurse called Fe back and informed her that we did not have the said device at which time she stated she was going to place a call to her co-worker who supposedly dropped the device off here. 11:00 Reassessment: Patient appears in no apparent distress at this time. No changes from jg9 previously documented assessment. Patient and/or family updated on plan of care and expected duration. Pain level reassessed. Patient is alert, oriented x 3, equal unlabored respirations, skin warm/dry/pink. 11:15 Reassessment: This nurse after discussing with the provider called Fe back and jg9 advised her that we do need the device interrogated-awaiting a call back on when someone will be on the way-when asked she reported that they would be coming from the [place] area. 12:00 Reassessment: No changes from previously documented assessment. Patient and/or family jesusg9 updated on plan of care and expected duration. Pain level reassessed. Patient is alert, oriented x 3, equal unlabored respirations, skin warm/dry/pink. Patient updated on plan of care, all questions, comments, and concerns addressed. 13:05 Reassessment: This nurse called Fe the promotions representative for [facility] interrogator jg9 about an update on when someone was going to be arriving, Fe advised me at this time that if there was anyway that family could bring in the patient's home monitor that it could be used to interrogate the device and they would get a report immediately, Dr. Meena and ER provider aware. 14:00 Reassessment: family brought patient defibrillator interrogator in-this nurse conducted jg9 the interrogation, called Fe a promotions representative of [facility] and advised her that it was completed. This nurse is now waiting on a call back to confirm the transmission was successful. Patient updated on plan of care. 15:00 Reassessment: This nurse attempted to call the promotions representative Fe again to inquire jg9 about the transmission report-this nurse called 3x with no answer, this nurse left a message and call back number. Patient updated on plan of care. 16:00 Reassessment: No changes from previously documented assessment. Patient and/or family jg9 updated on plan of care and expected duration. Pain level reassessed. Patient is alert, oriented x 3, equal unlabored respirations, skin warm/dry/pink. received [facility] interrogation report, report being printer for provider. Vital Signs: 09:12 BP 109 / 60; Pulse 50; Resp 17; Temp 97.6; Pulse Ox 95% on R/A; Pain 7/10; ll1 10:00 BP 103 / 71; Pulse 71; Resp 12 S; Pulse Ox 95% on R/A; jg9 11:00 BP 104 / 74; Pulse 66; Resp 16 S; Pulse Ox 97% on R/A; jg9 11:30 BP 96 / 59; Pulse 63; Resp 20 S; Pulse Ox 97% ; jg9 12:30 BP 95 / 55; Pulse 64; Resp 16 S; Pulse Ox 97% on R/A; jg9 13:30 BP 95 / 63; Pulse 60; Resp 16 S; Pulse Ox 94% ; jg9 14:00 BP 99 / 52; Pulse 62; Resp 20 S; Pulse Ox 94% ; jg9 16:00 BP 92 / 59; Pulse 72; Resp 15 S; Pulse Ox 96% on R/A; jg9 ED Course: 09:07 Patient arrived in ED. bd 09:08 Manpreet Ponce DO is Attending Physician. ms3 09:10 Arm band placed on Patient placed in an exam room, on a stretcher. ll1 09:13 Rika Mathews, DAY is Primary Nurse. jg9 09:14 Triage completed. ll1 09:31 Patient has correct armband on for positive identification. Bed in low position. Call jg9 light in reach. Side rails up X 1. 09:31 Inserted saline lock: 22 gauge in right antecubital area, using aseptic technique. jg9 Blood collected. 09:48 XRAY Chest (1 view) In Process Unspecified. EDMS 11:00 No apparent distress. Resting quietly. Awaiting: interrogation of defibrillator. jg9 13:16 Antione León MD is Hospitalizing Provider. ms3 14:00 No apparent distress. Resting quietly. jg9 16:33 Diet: Patient given a heart healthy meal tray. jg9 19:23 Primary Nurse role handed off by Rika Mathews, DAY mw2 01/02 14:44 IV discontinued, intact, bleeding controlled, No redness/swelling at site. Pressure 6 dressing applied. Administered Medications: No medications were administered Outcome: 01/01 13:17 Decision to Hospitalize by Provider. ms3 01/02 14:43 Discharged to home ambulatory. 6 Condition: improved Discharge instructions given to patient, Instructed on discharge instructions, follow up and referral plans. Demonstrated understanding of instructions, follow-up care, medications, Prescriptions given X 1. 14:44 Patient left the ED. 6 Signatures: Dispatcher [employer] EDVT Verona Hinson MyKena mw2 Alvarado Rockwell, RN RN ll1 Manpreet Ponce DO DO ms3 Rika Kenny, DAY RN jh6 Rika Mathews, RN RN jg9 Corrections: (The following items were deleted from the chart) 01/01 09:12 09:10 PSHx: defibrilator; ll1 ll1
[2022-01-01] MEDS ORDERED: ONDANSETRON 4 MG/2 ML VIAL IV PRN (14:28)
[2022-01-01] MEDS ORDERED: ACETAMINOPHEN 500 MG TAB PO PRN ×2 (14:28→19:49)
[2022-01-01] MEDS ORDERED: HYDROCODONE/APAP 5/325 MG TAB PO PRN ×2 (14:33→18:06)
[2022-01-01] MEDS ORDERED: GLUCAGON 1 MG/VIAL IM PRN (14:38)
--- NOTE | 2022-01-01 14:41 | P.HP ---
Certification for Inpatient Patient admitted to: Observation With expected LOS: <2 Midnights Patient will require the following post-hospital care: None Practitioner: I am a practitioner with admitting privileges, knowledge of patient current condition, hospital course, and medical plan of care. Services: Services provided to patient in accordance with Admission requirements found in Title 42 Section 412.3 of the Code of Federal Regulations Patient History Date of Service: 01/01/22 Reason for admission: ICD shock History of Present Illness: Patient is a 61-year-old female with a past medical history significant for CHF, DM 2, COPD, DEE DEE, AICD placement, MARCELL, hypertension, CHF who presents with complaint of defibrillator shock. Patient reported that this morning she was experiencing palpitations and afterward became dizzy. Patient reported that she sat down for 30 minutes. Patient got up to use the bathroom and when she was in the bathroom patient experienced a shock in her left chest wall. Patient reported associated signs and symptoms of headache and nausea. Patient denies any other signs or symptoms. Symptoms are aggravated or relieved by nothing. Patient decided to present to the hospital for medical evaluation. Allergies Penicillins Allergy (Mild, Verified 12/28/21 08:40) Convulsions Home medications list reviewed: Yes Home Medications: Aspirin [Lo-Dose Aspirin EC] 81 mg PO DAILY 12/11/17 Glimepiride 2 mg PO DAILY 12/11/17 Metformin HCl 500 mg PO DAILY 12/11/17 Potassium Oral Tab [Klor-Con 10 mEq Tab*] 20 meq PO DAILY 12/11/17 Sacubitril/Valsartan [Entresto 49 mg-51 mg Tablet] 1 tab PO BID 08/23/20 carvediloL [Coreg*] 6.25 mg PO BID #60 tab 08/25/20 Bumetanide [Bumex] 1 mg PO DAILY 12/28/21 Calcium Carbonate [Calcium] 600 mg PO DAILY 12/28/21 Empagliflozin [Jardiance] 10 mg PO DAILY 12/28/21 Ferrous Sulfate [Iron] 325 mg PO DAILY 12/28/21 Spironolactone [Aldactone] 25 mg PO DAILY 12/28/21 Tizanidine HCl 4 mg PO TIDP PRN 12/28/21 Zinc 50 mg PO DAILY 12/28/21 - Past Medical/Surgical History Diabetic: No -: HTN -: DM -: CHF -: AICD placement -: DEE DEE -: Obesity -: COPD -: AICD placement 2014 -: cholecystectomy -: vein surgery - Family History Family History: Reviewed- Non-Contributory - Social History Smoking Status: Never smoker Alcohol use: No CD- Drugs: No Caffeine use: Yes Place of Residence: Home Review of Systems General: Unremarkable Eyes: Unremarkable ENT: Unremarkable Respiratory: Unremarkable Cardiovascular: Other (Chest soreness ) Gastrointestinal: Nausea Genitourinary: Unremarkable Musculoskeletal: Unremarkable Integumentary: Unremarkable Neurological: Other (Headache ) Physical Examination - Physical Exam General: Alert, Oriented x3 HEENT: Atraumatic, Normocephalic, PERRLA Neck: Supple, 2+ carotid pulse no bruit, JVD not distended Respiratory: Clear to auscultation bilaterally, Normal air movement Cardiovascular: No edema, Regular rate/rhythm, Normal S1 S2 Capillary refill: <2 Seconds Gastrointestinal: Normal bowel sounds, Soft and benign Musculoskeletal: No clubbing, No swelling, No contractures Integumentary: No rashes, No breakdown, No significant lesion Neurological: Normal gait, Normal speech, Normal tone Lymphatics: No axilla or inguinal lymphadenopathy - Studies Laboratory Data (last 24 hrs) 01/01/22 09:30: WBC 6.40, Hgb 14.1, Hct 43.1, Plt Count 161 01/01/22 09:30: Sodium 140, Potassium 3.1 L, BUN 19 H, Creatinine 0.58, Glucose 147 H Assessment and Plan - Plan --ICD shock. Device was interrogated. Defibrillator shock was confirmed and patient was noted to have A. fib with RVR from the interrogation--cardiology notified. EKG indicates normal sinus rhythm. Telemetry to monitor for any malignant arrhythmia. Echocardiogram pending. Will trend serial troponins. Further management per audit analyst. --Acute on chronic combined systolic and diastolic heart failure. BNP elevated at 1050. Continue Bumex. Daily weight and strict I/O. --DM2. BS monitoring sliding scale insulin. --COPD. Stable. Continue medication. --MARCELL. Continue ferrous sulfate. --Hypertension. Patient currently hypotensive. Will hold off on BP medications. We will continue to monitor blood pressure levels. --DEE DEE. stable. Continue supportive care. --Hypokalemia. Replete as needed. --Headache. Tylenol as needed. --Nausea. Antiemetics on board. --Obesity. Likely secondary to excess calories intake. Patient counseled on weight reduction, diet and exercise therapy. -- DVT prophylaxis with Lovenox subQ. Discharge Plan: Home Plan to discharge in: 48 Hours - Advance Directives Does patient have a Living Will: No Does patient have a Durable POA for Healthcare: No - Code Status/Comfort Care Code Status Assessed: Yes Code Status: Full Code Physician Review: Patient Assessed, Agree with Above Assessment and Plan Critical Care: No
[2022-01-01] MEDS ORDERED: D10W 250 ML BAG IV PRN (14:53)
--- NOTE | 2022-01-01 15:37 | CON ---
Date of Consultation: 01/01/2022 Reason For Consultation: ICD shock. History Of Present Illness: This is a 61-year-old female, history of significant systolic congestive heart failure, diabetes, hypertension, COPD, status post ICD and biventricular pacer implant at [facility] long time ago, presented because she said she was walking and felt suddenly very dizzy and then next thing she knows she was shocked by the device and she felt very sore in the chest after that. S he denies having any chest pain, shortness of breath, or palpitations prior to the shock. Past Medical History: As outlined above in the HPI. Medications: Refer to reconciliation sheet. Allergies: PENICILLIN. Past Surgical History: ICD implantation. Family History: No premature coronary artery disease or cancer. Social History: Does not smoke or drink. Does not use any drugs. Review of Systems: All systems reviewed and they were negative except for mentioned in the HPI. Physical Examination: Vital Signs: Reviewed. Head and Neck: Pupils are equal, reactive to light. Intact eye movements. No JVD. No cervical lym phadenopathy. Neck is supple. Thyroid is not enlarged. Lungs: Clear to auscultation bilaterally. No rhonchi, wheezing, or crackles. No accessory muscle u se. Heart: Regular rate and rhythm. No extra sounds. Abdomen: Soft, nontender. Bowel sounds positive. No organomegaly. No masses or hernia. No rigidi ty or rebound. Extremities: No edema, clubbing, or cyanosis. Intact pulses. Skin: No rash. Neurologic: Alert, awake, oriented x3. No acute focal deficits appreciated. Investigations: Potassium 3.1 and creatinine 0.58. NT-proBNP is 1050. Hemoglobin 14.1. Assessment And Recommendations: 1.ICD shock. We will get the device interrogated to know the underlying rhythm. In the interim, pl ease make sure her potassium is above 4 and check her magnesium and make sure it is above 2 and furth er recommendations we will follow after we get the device interrogated and know the underlying rhythm and confirm the shock that did happen for fact. 2.Congestive heart failure, chronic and systolic. Please obtain echocardiogram to further evaluate and during this hospital stay, please trend troponin at least 2 times and I will follow the patient w mary you. /MELANIE Voice ID: [id number] Report ID: [id number]
[2022-01-01 15:46] LABS: SARS-CoV-2 Antigen Rapid Res Negative (Negative)
[2022-01-01] MEDS ORDERED: ENOXAPARIN 40 MG/0.4 ML SQ SCH (16:00)
[2022-01-01] MEDS: INSULIN -REGULAR HUMAN 50 UNIT/0.5 ML ML SQ SCH ×2 (16:30→21:00)
[2022-01-01] MEDS ORDERED: HOME MED 1 EA UNK (Tizanidine Hcl [Tizanidine Hcl] 4 MG Capsule) PO PRN (18:06)
[2022-01-01] MEDS ORDERED: POTASSIUM CL SA 10 MEQ TAB PO ONE ×2 (18:19→20:56)
[2022-01-01] MEDS ORDERED: TIZANIDINE 4 MG TABLET PO PRN (18:24)
[2022-01-01] MEDS ORDERED: ASPIRIN 325 MG TAB ONE (20:55)
[2022-01-01] MEDS: ASPIRIN 325 MG TAB PO SCH (21:00)
[2022-01-01] MEDS ORDERED: carvediloL 6.25 MG TAB PO SCH (21:00)
[2022-01-01] MEDS ORDERED: SACUBITRIL/VALSARTAN 49/51 MG TAB PO SCH (21:00)
[2022-01-02 02:45] LABS: Absolute Lymphocytes (CBC) 2.1 K/uL (0.7-4.9); Hematocrit 40.3 % (36.0-45.0); Lymphocytes % 32.9 % (15.3-44.8); MCV 83.1 fL (80-100); MPV 9.6 fL (7.6-11.3); RBC Red Blood Cell Count 4.85 M/uL (3.86-4.86)
[2022-01-02 02:59] LABS: Potassium 3.6 mmol/L (3.5-5.1)
[2022-01-02 05:32] VITALS: BMI 48.2
[2022-01-02] MEDS: INSULIN -REGULAR HUMAN 50 UNIT/0.5 ML ML SQ SCH ×2 (07:30→11:30)
[2022-01-02] MEDS ORDERED: PNEUMOCOCCAL VACCINE 0.5 ML IMVAC ONE (08:00)
[2022-01-02] MEDS ORDERED: CALCIUM CARBONATE 500 MG TAB PO SCH (09:00)
[2022-01-02] MEDS ORDERED: ASPIRIN EC 81 MG TAB PO SCH (09:00)
[2022-01-02] MEDS: ASPIRIN 325 MG TAB PO SCH (09:00)
[2022-01-02] MEDS ORDERED: POTASSIUM CL SA 10 MEQ TAB PO SCH (09:00)
[2022-01-02] MEDS ORDERED: SPIRONOLACTONE 25 MG TABLET PO SCH (09:00)
[2022-01-02] MEDS ORDERED: BUMETANIDE 1 MG TABLET PO SCH (09:00)
[2022-01-02] MEDS ORDERED: HOME MED 1 EA UNK (Zinc [Zinc] 50 MG Tablet) PO SCH (09:00)
[2022-01-02] MEDS ORDERED: ENOXAPARIN 40 MG/0.4 ML SQ SCH (09:00)
[2022-01-02] MEDS ORDERED: HOME MED 1 EA UNK (Calcium Carbonate [Calcium] 600 MG Tablet) PO SCH (09:00)
[2022-01-02] MEDS ORDERED: ZINC SULFATE 220 MG CAP PO SCH (09:00)
[2022-01-02] MEDS ORDERED: FERROUS SULFATE 325 MG TAB PO SCH (09:00)
[2022-01-02] MEDS ORDERED: ZINC SULFATE 220 MG CAP ONE (09:05)
[2022-01-02] MEDS ORDERED: POTASSIUM CL SA 10 MEQ TAB PO ONE (09:05)
[2022-01-02] MEDS ORDERED: ASPIRIN 325 MG TAB ONE (09:05)
[2022-01-02] MEDS ORDERED: ENOXAPARIN 40 MG/0.4 ML SQ ONE (09:05)
[2022-01-02] MEDS ORDERED: SPIRONOLACTONE 25 MG TABLET ONE (09:09)
--- NOTE | 2022-01-02 13:28 | P.DS ---
Admission Date: 01/01/22 Discharge Date: 01/02/22 Disposition: DC HOME/HOME HEALTH CARE Discharge Condition: GOOD Reason for Admission: ICD shock Consultations: Cardiology - Dr. Dawson, Dr. Mac Brief History of Present Illness: 61-year-old female with a past medical history significant for CHF, DM 2, COPD, DEE DEE, AICD placement, MARCELL, hypertension, CHF who presents with complaint of defibrillator shock. Patient reported that this morning she was experiencing palpitations and afterward became dizzy. Patient reported that she sat down for 30 minutes. Patient got up to use the bathroom and when she was in the bathroom patient experienced a shock in her left chest wall. Patient reported associated signs and symptoms of headache and nausea. Patient denies any other signs or symptoms. Symptoms are aggravated or relieved by nothing. Patient decided to present to the hospital for medical evaluation. Hospital Course: Problem List Afib, new onset HTN NIDDM2 CHF s/p AICD DEE DEE COPD Patient presented to ED after feeling her defibrillator fire and had some chest soreness. This was interrogated in the ER and revealed a brief episodes of Afib with RVR, and was cardioverted to sinus rhythm. She was monitored on telemetry and did not have any reoccurrence. Cardiology was consulted, recommended doubling carvedilol dose (was taking 6.25mg twice daily, and recommended to take 12.5mg twice daily), and initiating anticoagulation given her high risk factors. Patient states she has more than enough carvedilol 6.25mg tablets and will take 2 of them twice a day for next month. Monitor heart rate and blood pressure, if gets low, will decrease dose back to 6.25mg twice day. Follow up with Cardiology with blood pressure and heart rate readings. Patient reported some recent hemorrhoid bleed and vaginal bleeding. She was originally scheduled to undergo hysterectomy today but cancelled. Discussed risks/benefits of bleeding vs clot. Patient will call her [facility] office to reschedule, and if able to be done soon, plans to hold off on anticoagulation until after the procedure. If holding off on anticoagulation, recommended to at least continue aspirin 81 mg - and hold this medication per [facility] [employer] recommendations if she undergoes surgery. Follow up with PCP within 1 week Follow up with Cardiology in the next few weeks, call office to schedule. Recommend echocardiogram as outpatient Vital Signs/Physical Exam: Temp Pulse Resp BP Pulse Ox 97.7 F 69 18 110/68 98 01/02/22 12:00 01/02/22 12:00 01/02/22 12:00 01/02/22 12:00 01/02/22 12:00 General: Alert, In no apparent distress, Oriented x3 HEENT: EOMI, Sclerae nonicteric Neck: Supple, No LAD Respiratory: Clear to auscultation bilaterally, Normal air movement Cardiovascular: No edema, Regular rate/rhythm Gastrointestinal: Soft and benign, Non-distended, No tenderness Musculoskeletal: No contractures Integumentary: No rashes, No significant lesion Neurological: Normal speech, Normal strength at 5/5 x4 extr, Normal affect Laboratory Data at Discharge: WBC 6.40 K/uL (4.3-10.9) 01/02/22 02:19 Hgb 13.4 g/dL (12.0-15.0) 01/02/22 02:19 Hct 40.3 % (36.0-45.0) 01/02/22 02:19 Plt Count 141 K/uL (152-406) L 01/02/22 02:19 Sodium 140 mmol/L (136-145) 01/02/22 02:19 Potassium 3.6 mmol/L (3.5-5.1) 01/02/22 02:19 BUN 28 mg/dL (7-18) H 01/02/22 02:19 Creatinine 0.60 mg/dL (0.55-1.3) 01/02/22 02:19 Glucose 143 mg/dL (74-106) H 01/02/22 02:19 Magnesium 2.3 mg/dL (1.8-2.4) 01/01/22 18:26 Home Medications: Glimepiride 2 mg PO DAILY 12/11/17 Metformin HCl 500 mg PO BID 12/11/17 Potassium Oral Tab [Klor-Con 10 mEq Tab*] 20 meq PO DAILY 12/11/17 Sacubitril/Valsartan [Entresto 49 mg-51 mg Tablet] 1 tab PO BID 08/23/20 carvediloL [Coreg*] 6.25 mg PO BID #60 tab 08/25/20 Bumetanide [Bumex*] 1 mg PO DAILY 12/28/21 Calcium Carbonate [Calcium] 600 mg PO DAILY 12/28/21 Empagliflozin [Jardiance] 10 mg PO DAILY 12/28/21 Ferrous Sulfate [Iron] 325 mg PO DAILY 12/28/21 Spironolactone [Aldactone*] 12.5 mg PO DAILY 12/28/21 Tizanidine HCl 4 mg PO TIDP PRN 12/28/21 Zinc 50 mg PO DAILY 12/28/21 Aspirin [Aspirin EC 81 MG] 81 mg PO 01/02/22 Rivaroxaban [Xarelto] 20 mg PO DAILY AT SUPPER 30 Days #30 tab 01/02/22 New Medications: Rivaroxaban [Xarelto] 20 mg PO DAILY AT SUPPER 30 Days #30 tab Physician Discharge Instructions: Patient presented to ED after feeling her defibrillator fire and had some chest soreness. This was interrogated in the ER and revealed a brief episodes of Afib with RVR, and was cardioverted to sinus rhythm. She was monitored on telemetry and did not have any reoccurrence. Cardiology was consulted, recommended doubling carvedilol dose (was taking 6.25mg twice daily, and recommended to take 12.5mg twice daily), and initiating anticoagulation given her high risk factors. Patient states she has more than enough carvedilol 6.25mg tablets and will take 2 of them twice a day for next month. Monitor heart rate and blood pressure, if gets low, will decrease dose back to 6.25mg twice day. Follow up with Cardiology with blood pressure and heart rate readings. Patient reported some recent hemorrhoid bleed and vaginal bleeding. She was originally scheduled to undergo hysterectomy today but cancelled. Discussed risks/benefits of bleeding vs clot. Patient will call her [facility] office to reschedule, and if able to be done soon, plans to hold off on anticoagulation until after the procedure. If holding off on anticoagulation, recommended to at least continue aspirin 81 mg - and hold this medication per [facility] [employer] recommendations if she undergoes surgery. Follow up with PCP within 1 week Follow up with Cardiology in the next few weeks, call office to schedule. Recommend echocardiogram as outpatient Followup: NONE,NONE [Primary Care Provider] - Time spent managing pt's care (in minutes): 45
[2022-01-02 15:19] VITALS: TEMP 97.6
[2022-01-02 15:37] VITALS: BP 92/59; O2SAT 96
--- NOTE | 2022-01-03 14:31 | EKG ---
Test Date: 2022-01-01 Test Time: 09:34:15 Procurement Representative: LML MEASUREMENT RESULTS: Intervals: Rate: 69 KS: 166 QRSD: 142 QT: 408 QTc: 437 [place]: P: 53 KS: 166 QRS: -28 T: 90 INTERPRETIVE STATEMENTS: Normal sinus rhythm Left bundle branch block Abnormal ECG Compared to ECG 08/25/2020 03:25:43 Left bundle-branch block now present Atrial-paced complex(es) or rhythm no longer present Left ventricular hypertrophy no longer present Early repolarization no longer present Electronically Signed On 01-03-22 14:29:26 CDT by Lan Dawson
== END 2022-01-02 14:25 | disposition home health service (06) ==
LOC: ER 09:06 → ERHOLD 14:06
PROVIDERS: ADMIT Hospitalist; ATTEND Hospitalist
DX: I48.91 Unspecified atrial fibrillation (principal); I50.43 Acute on chronic combined systolic (congestive) and diastolic (congestive) heart failure; I11.0 Hypertensive heart disease with heart failure; E11.9 Type 2 diabetes mellitus without complications; J44.9 Chronic obstructive pulmonary disease, unspecified; G47.33 Obstructive sleep apnea (adult) (pediatric); E87.6 Hypokalemia; R51.9 Headache, unspecified; R11.0 Nausea; D50.9 Iron deficiency anemia, unspecified; N93.9 Abnormal uterine and vaginal bleeding, unspecified; K64.9 Unspecified hemorrhoids; Z95.810 Presence of automatic (implantable) cardiac defibrillator; E66.9 Obesity, unspecified; Z68.42 Body mass index [BMI] 45.0-49.9, adult; Z79.82 Long term (current) use of aspirin; Z79.84 Long term (current) use of oral hypoglycemic drugs; Z79.899 Other long term (current) drug therapy; Z88.0 Allergy status to penicillin; Z90.49 Acquired absence of other specified parts of digestive tract; Z20.822 Contact with and (suspected) exposure to COVID-19
CPT/HCPCS: 93005; 85025 ×2; 80048 ×2; 36415; 83735; 82947 ×3; 84484 ×3; 83880; 71045; 99284; 87811; J1650 ×2; G0378 ×3; J3480

== ENCOUNTER 2022-08-02 12:06 | Emergency (ER) | payer OTHER ==
--- OUTSIDE RECORDS SUMMARY | 2022-08-02 12:20 | XMS REPORT | Continuity of Care Document ---
:1960 Author Organization [facility] t Address [address] [facility] [address] [place] [address] Care Team Providers Name Role Phone JACQUI CORONADO Primary Care Physician Unavailable Aissatou Tapia Attending Clinician Unavailable Aleah Nicholson Attending Clinician Unavailable FE RHODES Attending Clinician Unavailable SEN LEAL Attending Clinician Unavailable SIGIFREDO RAMIREZ Attending Clinician Unavailable SIGIFREDO RAMIREZ Attending Clinician Unavailable 1, [facility] Attending Clinician Unavailable Sigifredo Ramirez MD Attending Clinician Doctor Unassigned, [place] Attending Clinician Unavailable Wood Roach MD Attending Clinician [phone] Feliberto, General Cardiology Attending Clinician Unavailable WOOD ROACH Attending Clinician Unavailable Testing, [facility] Pulmonary Function Attending Clinician UnavailMiguel Spencer MD Attending Clinician MIGUEL FORD Attending Clinician Unavailable RADIOLOGY Attending Clinician Unavailable Radiology Attending Clinician Unavailable Pob, [facility] Main Attending Clinician Unavailable Milo Bennett MD Attending Clinician MIREYA ANGEL Attending Clinician Unavailable Fe Rhodes MD Attending Clinician MANDI MOON Attending Clinician Unavailable Nurse, Alexander Donaldson Attending Clinician Unavailable Unknown, Attending Attending Clinician Unavailable UNKNOWN, ATTENDING Attending Clinician Unavailable Regulo Villa Attending Clinician Yue CAM, Sendil K.H. Attending Clinician YUE SENDIL K.H. Attending Clinician Unavailable Kennedy_Lucio Attending Clinician Unavailable Tom Littlejohn MD Attending Clinician JACQUI CORONADO Attending Clinician Unavailable WOOD ROACH Admitting Clinician Unavailable YUE SENDDARON K.HRenuka Admitting Clinician Unavailable Fina Admitting Clinician Unavailable JACQUI CORONADO Admitting Clinician Unavailable Payers Payer Name Policy Type Policy Number Effective Date Expiration Date S jerome SGMED/[facility] DUAL [id number] 2021 [facility] HMO D SNP 00:00:00 [place] [id number] 2017 00:00:00 [place] [id number] 2021 Common DUAL MCR WELLMED 00:00:00 [facility] - [facility] MEDICARE NOVITAS MB [id number] [facility] MEDICARE NOVITAS MB [id number] [facility] MEDICARE NOVITAS MB [id number] [facility] MEDICARE NOVITAS MB [id number] [facility] MEDICARE NOVITAS MB [id number] [facility] [employer] - [id number] 2020 [facility] 00:00:00 (MEDICARE REPLACEMENT/ADVAN TAGE - [place]) [place] [id number] [place] [facility] [id number] - DUAL COMPLETE - DUAL ELIGIBLE - SNP (MEDICARE-MEDICAI D REPLACEMENT HMO) Problems Condition Condition Condition Status Onset Resolution Last Treating Co mments Source Name Details Category Date Date Treatment Clinician Date Angina Angina Disease Active Univers pectoris pectoris 4-19 ity of 00:00: [place] 00 Medical Branch Diabetes Diabetes Disease Active Unive rs mellitus mellitus 4-19 ity of 00:00: [place] [facility] Sick sinus Sick sinus Disease Active U nivers syndrome syndrome 4-19 ity of 00:00: [place] 00 Medical Branch Ventricula Ventricula Disease Active U nivers r r 4-19 [place] premature premature [place] Ventricula Ventricula Disease Active U nivers r r 4-19 [place] premature [place] HFrEF HFrEF Disease Active Univers (heart (heart 4-08 ity of failure failure 00:00: [place] with with 00 Medical reduced reduced Branch ejection ejection fraction) fraction) Acute Acute Disease Active 2020-05 Univers systolic systolic 0-31 ity of heart heart 00:00: [place] failure failure 00 Medical Branch 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 0-31 it y of athy athy 00:00: [place] 00 Medical Branch Paroxysmal Paroxysmal Disease Active 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 U nivers ventricula ventricula 7-24 it y of r r 00:00: [place] tachycardi tachycardi 00 Me dical a a Branch Essential Hypertensi Problem Co mmon hypertensi on, Spirit on unspecifie - CHI d type [facility] [id number] Unsteady Problem Commo n gait Spirit [facility] [id number] Obstructiv Problem Com mon e sleep Spirit apnea - [facility] (adult) ([facility] Hypertensi Hypertensi Problem C ommon on on [facility] Peripheral Peripheral Problem C ommon vascular vascular Spirit disease disease - [facility] Type II Diabetes Problem Common diabetes type 2, Spirit mellitus controlled - CH I well [facility] Cardiomyop Cardiomyop Problem C naveen broderick [facility] [id number] Constipati Problem Com mon on, Spirit unspecifie - CHI d St constipati [facility] on [facility] [id number] AICD Problem Common (automatic Spirit cardiovert - CHI er/defibri St llator) [facility] [id number] Other Problem Common chronic Spirit pain - [facility] [id number] Tremor of Problem Com mon both hands [facility] [id number] Polyarthra Problem Com mon lgia [facility] [id number] Chest Problem Common pain, [facility] unspecifie - CHI d type [facility] [id number] Chronic Problem Common congestive [facility] heart [facility], [facility] type [id number] Morbid Problem Common (severe) [facility] obesity - CHI due to [facility] [id number] Coronary Problem Com mon 107 artery Spirit disease - [facility] involving [facility] coronary Medical artery of Center [place] heart, angina presence unspecifie d [id number] Primary Problem Comm on osteoarthr Spirit itis of - [facility] right knee [facility] [id number] Status Problem Common post fall [facility] [id number] Falls Problem Common frequently [facility] [id number] Shortness Problem Com mon of breath [facility] Depression Depression Problem C naveen [facility] [id number] Peripheral Problem Co mmon edema [facility] [id number] Asthma, Problem Commo n unspecifie Spirit d asthma - CHI severity, St unspecifie [facility] d whether Medical complicate Center d, unspecifie d whether persistent [id number] Non-pressu Problem Com mon re chronic Spirit ulcer of - CHI unspecifie St d part of [facility] left lower Medica l leg with Center unspecifie d severity [id number] Varicose Problem Comm on veins of Spirit left lower - CHI extremity St with ulcer [facility] of Medical unspecifie Center d site Cardiac Cardiac Problem Active 2021-07-26 Me moria defibrilla defibrilla 22:53:26 l tor in tor in [place] situ situ (finding) (finding) Active Problem 07/26/2021 [facility] 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 22:53:26 l s s [place] (disorder) (disorder) Active Problem 07/26/2021 [facility] Congestive Problem Active 2021-07-26 M [place] heart Congestive 22:53:26 l failure heart [place] (disorder) failure (disorder) Active Problem 07/26/2021 [facility] Headache Headache Problem Active 2021-07-26 Memoria (finding) (finding) 22:53:26 l Active [place] Problem 07/26/2021 [facility] Neoplasm Neoplasm Problem Active 2021-07-26 Memoria of of 22:53:26 l meninges meninges Ferdinand n (disorder) (disorder) Active Problem 07/26/2021 [facility] Diabetes Diabetes Problem Active 2021-07-26 Memoria mellitus mellitus 22:53:26 l type 2 type 2 [place] (disorder) (disorder) Active Problem 07/26/2021 [facility] Allergies, Adverse Reactions, Alerts Allergy Allergy Status Severity Reaction(s) Onset Inactive Treating Comm ents Source Name Type Date Date Clinician Penicill Propensi Active [facility] ins ty to 5-24 [place] adverse 00:00: of reaction 00 Medicin s to e drug Penicill Propensi Active Other - See 0 Seizures Univers ins ty to comments 3-22 ity of adverse 00:00: [place] reaction 00 Medical s Branch PENICILL Drug Active Other-Cmnt Univ ers INS Class 3-22 ity of 00:00: [place] 00 Medical Branch Penicill Propensi Active Other - See 0 Seizures Univers ins ty to comments 3-22 ity of adverse 00:00: [place] reaction 00 Medical s Branch penicill penicill Active Memori a in in l [place] Penicill Penicill Active Unknown Commo n in in Spirit - [facility] PENICILL Allergy Active [place] [facility] Medical e Group Social History Social Habit Start Date Stop Date Quantity Comments Source Exposure to 2022-07-14 2022-07-24 Not sure [facility] SARS-CoV-2 00:00:00 03:31:00 [place] [facility] (event) Branch Alcohol intake 2022-07-08 2022-07-08 Lifetime University of 00:00:00 00:00:00 non-drinker [facility] (finding) Branch Tobacco use and 2022-04-10 2022-04-10 Smokeless tobacco Un iversity of exposure 00:00:00 00:00:00 non-user [facility] Social History 2021-02-21 2021-02-21 [facility] Bon[place] 19:06:01 19:06:01 History of 2014-05-19 Cigar Smoker [place] o f tobacco use 00:00:00 [facility] Sex Ass[birth year] At [birth year] SEAMUS Ortega 00:00:00 00:00:00 [facility] Smoking Status Start Date Stop Date Source Ex-smoker 2022-04-10 00:00:00 2022-04-10 00:00:00 [facility] Medications Ordered Filled Start Stop Current Ordering Indication Dosage Frequency Signature Comments Components Source Medication Medication Date Date Medication? Clinician (SIG) Name Name metformin Yes 500mg Take 500 Uni vers HCl 2-20 mg by ity of (METFORMIN 13:01: [place] 33 (two) Medical times Branch daily with meals. sacubitriL- 0 Yes 1{tbl} Take 1 Un winter valsartan 2-20 tablet by ity o f 49-51 mg 13:01: mouth 2 [place] tablet 33 (two) Medical times Branch daily. glimepiride Yes 2mg Take 2 mg U nivers 2 mg tablet 2-20 by mouth ity of 13:01: daily with [place] [address] breakfast. Medical Branch metformin Yes 500mg Take 500 Uni vers HCl 2-20 mg by ity of (METFORMIN 13:01: [place] 33 (two) Medical times Branch daily with meals. sacubitriL- 0 Yes 1{tbl} Take 1 Un winter valsartan 2-20 tablet by ity o f 49-51 mg 13:01: mouth 2 [place] tablet 33 (two) Medical times Branch daily. glimepiride Yes 2mg Take 2 mg U nivers 2 mg tablet 2-20 by mouth ity of 13:01: daily with [place] [address] breakfast. Medical Branch metformin Yes 500mg Take 500 Uni vers HCl 2-20 mg by ity of (METFORMIN 13:01: [place] 33 (two) Medical times Branch daily with meals. sacubitriL- 2023-0 Yes 1{tbl} Take 1 Un winter valsartan 2-20 tablet by ity o f 49-51 mg 13:01: mouth 2 [place] tablet 33 (two) Medical times Branch daily. glimepiride 2023-0 Yes 2mg Take 2 mg U nivers 2 mg tablet 2-20 by mouth ity of 13:01: daily with [place] 33 breakfast. Medical Branch metformin 2022-0 Yes 500mg Take 500 Uni vers HCl 2-20 mg by ity of (METFORMIN 13:01: [place] 33 (two) Medical times Branch daily with meals. sacubitriL- 2023-0 Yes 1{tbl} Take 1 Un winter valsartan 2-20 tablet by ity o f 49-51 mg 13:01: mouth 2 [place] tablet 33 (two) Medical times Branch daily. glimepiride 2023-0 Yes 2mg Take 2 mg U nivers 2 mg tablet 2-20 by mouth ity of 13:01: daily with [place] [address] breakfast. Medical Branch metformin 2022-0 Yes 500mg Take 500 Uni vers HCl 2-20 mg by ity of (METFORMIN 13:01: [place] 33 (two) Medical times Branch daily with meals. sacubitriL- 2023-0 Yes 1{tbl} Take 1 Un winter valsartan 2-20 tablet by ity o f 49-51 mg 13:01: mouth 2 [place] tablet 33 (two) Medical times Branch daily. glimepiride 2023-0 Yes 2mg Take 2 mg U nivers 2 mg tablet 2-20 by mouth ity of 13:01: daily with [place] 33 breakfast. Medical Branch metformin 3-0 Yes 500mg Take 500 Uni vers HCl 2-20 mg by ity of (METFORMIN 13:01: [place] 33 (two) Medical times Branch daily with meals. sacubitriL- 2023-0 Yes 1{tbl} Take 1 Un winter valsartan 2-20 tablet by ity o f 49-51 mg 13:01: mouth 2 [place] tablet 33 (two) Medical times Branch daily. glimepiride 2023-0 Yes 2mg Take 2 mg U nivers 2 mg tablet 2-20 by mouth ity of 13:01: daily with [place] [address] breakfast. Medical Branch metformin 3-0 Yes 500mg Take 500 Uni vers HCl 2-20 mg by ity of (METFORMIN 13:01: [place] 33 (two) Medical times Branch daily with meals. sacubitriL- 2023-0 Yes 1{tbl} Take 1 Un winter valsartan 2-20 tablet by ity o f 49-51 mg 13:01: mouth 2 [place] tablet 33 (two) Medical times Branch daily. glimepiride 2023-0 Yes 2mg Take 2 mg U nivers 2 mg tablet 2-20 by mouth ity of 13:01: daily with [place] [address] breakfast. Medical Branch metformin 2022-0 Yes 500mg Take 500 Uni vers HCl 2-20 mg by ity of (METFORMIN 13:01: [place] 33 (two) Medical times Branch daily with meals. sacubitriL- 3-0 Yes 1{tbl} Take 1 Un winter valsartan 2-20 tablet by ity o f 49-51 mg 13:01: mouth 2 [place] tablet 33 (two) Medical times Branch daily. glimepiride 3-0 Yes 2mg Take 2 mg U nivers 2 mg tablet 2-20 by mouth ity of 13:01: daily with [place] [address] breakfast. Medical Branch bumetanide 3-0 Yes 1mg TAKE 1 Unive rs 1 mg tablet 1-12 TABLET BY ity of 00:00: MOUTH IN [place] [address] THE Medical MORNING Branch AND 1 TABLET IN THE EVENING bumetanide 3-0 Yes 1mg TAKE 1 Unive rs 1 mg tablet 1-12 TABLET BY ity of 00:00: MOUTH IN [place] [address] THE Medical MORNING Branch AND 1 TABLET IN THE EVENING bumetanide 3-0 Yes 1mg TAKE 1 Unive rs 1 mg tablet 1-12 TABLET BY ity of 00:00: MOUTH IN [place] THE Medical MORNING Branch AND 1 TABLET IN THE EVENING bumetanide 3-0 Yes 1mg TAKE 1 Unive rs 1 mg tablet 1-12 TABLET BY ity of 00:00: MOUTH IN [place] THE Medical MORNING Branch AND 1 TABLET IN THE EVENING bumetanide 2022-0 Yes 1mg TAKE 1 Unive rs 1 mg tablet 1-12 TABLET BY ity of 00:00: MOUTH IN [place] 00 THE Medical MORNING Branch AND 1 TABLET IN THE EVENING bumetanide 0 Yes 1mg TAKE 1 Unive rs 1 mg tablet 1-12 TABLET BY ity of 00:00: MOUTH IN [place] 00 THE Medical MORNING Branch AND 1 TABLET IN THE EVENING bumetanide 0 Yes 1mg TAKE 1 Unive rs 1 mg tablet 1-12 TABLET BY ity of 00:00: MOUTH IN [place] 00 THE Medical MORNING Branch AND 1 TABLET IN THE EVENING bumetanide 0 Yes 1mg TAKE 1 Unive rs 1 mg tablet 1-12 TABLET BY ity of 00:00: MOUTH IN [place] 00 THE Medical MORNING Branch AND 1 TABLET IN THE EVENING bumetanide 0 Yes 1mg TAKE 1 Unive rs 1 mg tablet 1-12 TABLET BY ity of 00:00: MOUTH IN [place] 00 THE Medical MORNING [place] AND 1 TABLET IN THE EVENING bumetanide 0 Yes 1mg TAKE 1 Unive rs 1 mg tablet 1-12 TABLET BY ity of 00:00: MOUTH IN [place] 00 THE Medical MORNING [place] AND 1 TABLET IN THE EVENING NOEL 2021-05- No Take by Univers ASPIRIN 0-11 10-11 mouth. ity of ORAL 13:40: 00:00 [place] 47 :00 Medical Branch carvediloL 2021-05- No 12.5mg Take 12.5 Univers 12.5 mg 0-11 10-11 mg by ity of tablet 13:38: 00:00 mouth 2 [place] 58 :00 (two) Medical times [place] daily with meals. aspirin 2021-05 Yes 81mg Take 1 Univers (NOEL LOW 0-11 tablet by ity of DOSE 00:00: mouth in [place] ASPIRIN) 81 00 the Medical mg morning. Branch tablet carvediloL 2021-05 Yes 6.25mg Take 1 Uni vers 6.25 mg 0-11 tablet by ity of tablet 00:00: mouth in [place] [address] the Medical morning Branch and 1 tablet in the evening. Take with meals. meclizine 2021-05 Yes 25mg Take 1 Univer s 25 mg 0-11 tablet by ity of tablet 00:00: mouth in [place] 00 the Medical morning Branch and 1 tablet at noon and 1 tablet in the evening. amiodarone 2021-05 Yes 200mg Take 1 Univ ers 200 mg 0-11 tablet by ity of tablet 00:00: mouth in [place] 00 the Medical morning. Branch aspirin 2021-05 Yes 81mg Take 1 Univers (NOEL LOW 0-11 tablet by ity of DOSE 00:00: mouth in [place] ASPIRIN) 81 00 the Medical mg EC morning. Branch tablet carvediloL 2021-05 Yes 6.25mg Take 1 Uni vers 6.25 mg 0-11 tablet by ity of tablet 00:00: mouth in [place] 00 the Medical morning Branch and 1 tablet in the evening. Take with meals. meclizine 2021-05 Yes 25mg Take 1 Univer s 25 mg 0-11 tablet by ity of tablet 00:00: mouth in [place] 00 the Medical morning Branch and 1 tablet at noon and 1 tablet in the evening. amiodarone 2021-05 Yes 200mg Take 1 Univ ers 200 mg 0-11 tablet by ity of tablet 00:00: mouth in [place] 00 the Medical morning. Branch aspirin 2021-05 Yes 81mg Take 1 Univers (NOEL LOW 0-11 tablet by ity of DOSE 00:00: mouth in [place] ASPIRIN) 81 00 the Medical mg EC morning. Branch tablet carvediloL 2021-05 Yes 6.25mg Take 1 Uni vers 6.25 mg 0-11 tablet by ity of tablet 00:00: mouth in [place] 00 the Medical morning Branch and 1 tablet in the evening. Take with meals. meclizine 2021-05 Yes 25mg Take 1 Univer s 25 mg 0-11 tablet by ity of tablet 00:00: mouth in [place] 00 the Medical morning Branch and 1 tablet at noon and 1 tablet in the evening. amiodarone 2021-05 Yes 200mg Take 1 Univ ers 200 mg 0-11 tablet by ity of tablet 00:00: mouth in [place] 00 the Medical morning. Branch aspirin 2021-05 Yes 81mg Take 1 Univers (NOEL LOW 0-11 tablet by ity of DOSE 00:00: mouth in [place] ASPIRIN) 81 00 the Medical mg EC morning. Branch tablet carvediloL 2021-05 Yes 6.25mg Take 1 Uni vers 6.25 mg 0-11 tablet by ity of tablet 00:00: mouth in [place] 00 the Medical morning Branch and 1 tablet in the evening. Take with meals. meclizine 2021-05 Yes 25mg Take 1 Univer s 25 mg 0-11 tablet by ity of tablet 00:00: mouth in [place] 00 the Medical morning Branch and 1 tablet at noon and 1 tablet in the evening. amiodarone 2021-05 Yes 200mg Take 1 Univ ers 200 mg 0-11 tablet by ity of tablet 00:00: mouth in [place] 00 the Medical morning. Branch aspirin 2021-05 Yes 81mg Take 1 Univers (NOEL LOW 0-11 tablet by ity of DOSE 00:00: mouth in [place] ASPIRIN) 81 00 the Medical mg EC morning. Branch tablet carvediloL 2021-05 Yes 6.25mg Take 1 Uni vers 6.25 mg 0-11 tablet by ity of tablet 00:00: mouth in [place] 00 the Medical morning Branch and 1 tablet in the evening. Take with meals. meclizine 2021-05 Yes 25mg Take 1 Univer s 25 mg 0-11 tablet by ity of tablet 00:00: mouth in [place] the Medical morning Branch and 1 tablet at noon and 1 tablet in the evening. amiodarone 2021-05 Yes 200mg Take 1 Univ ers 200 mg 0-11 tablet by ity of tablet 00:00: mouth in [place] the Medical morning. Branch aspirin 2021-05 Yes 81mg Take 1 Univers (NOEL LOW 0-11 tablet by ity of DOSE 00:00: mouth in [place] ASPIRIN) 81 00 the Medical mg EC morning. Branch tablet carvediloL 2021-05 Yes 6.25mg Take 1 Uni vers 6.25 mg 0-11 tablet by ity of tablet 00:00: mouth in [place] 00 the Medical morning Branch and 1 tablet in the evening. Take with meals. meclizine 2021-05 Yes 25mg Take 1 Univer s 25 mg 0-11 tablet by ity of tablet 00:00: mouth in [place] 00 the Medical morning Branch and 1 tablet at noon and 1 tablet in the evening. amiodarone 2021-05 Yes 200mg Take 1 Univ ers 200 mg 0-11 tablet by ity of tablet 00:00: mouth in [place] 00 the Medical morning. Branch aspirin 2021-05 Yes 81mg Take 1 Univers (NOEL LOW 0-11 tablet by ity of DOSE 00:00: mouth in [place] ASPIRIN) 81 00 the Medical mg EC morning. Branch tablet carvediloL 2021-05 Yes 6.25mg Take 1 Uni vers 6.25 mg 0-11 tablet by ity of tablet 00:00: mouth in [place] 00 the Medical morning Branch and 1 tablet in the evening. Take with meals. meclizine 2021-05 Yes 25mg Take 1 Univer s 25 mg 0-11 tablet by ity of tablet 00:00: mouth in [place] 00 the Medical morning Branch and 1 tablet at noon and 1 tablet in the evening. amiodarone 2021-05 Yes 200mg Take 1 Univ ers 200 mg 0-11 tablet by ity of tablet 00:00: mouth in [place] 00 the Medical morning. Branch aspirin 2021-05 Yes 81mg Take 1 Univers (NOEL LOW 0-11 tablet by ity of DOSE 00:00: mouth in [place] ASPIRIN) 81 00 the Medical mg EC morning. Branch tablet carvediloL 2021-05 Yes 6.25mg Take 1 Uni vers 6.25 mg 0-11 tablet by ity of tablet 00:00: mouth in [place] 00 the Medical morning Branch and 1 tablet in the evening. Take with meals. meclizine 2021-05 Yes 25mg Take 1 Univer s 25 mg 0-11 tablet by ity of tablet 00:00: mouth in [place] 00 the Medical morning Branch and 1 tablet at noon and 1 tablet in the evening. amiodarone 2021-05 Yes 200mg Take 1 Univ ers 200 mg 0-11 tablet by ity of tablet 00:00: mouth in [place] 00 the Medical morning. Branch aspirin 2021-05 Yes 81mg Take 1 Univers (NOEL LOW 0-11 tablet by ity of DOSE 00:00: mouth in [place] ASPIRIN) 81 00 the Medical mg EC morning. Branch tablet carvediloL 2021-05 Yes 6.25mg Take 1 Uni vers 6.25 mg 0-11 tablet by ity of tablet 00:00: mouth in [place] 00 the Medical morning Branch and 1 tablet in the evening. Take with meals. meclizine 2021-05 Yes 25mg Take 1 Univer s 25 mg 0-11 tablet by ity of tablet 00:00: mouth in [place] 00 the Medical morning Branch and 1 tablet at noon and 1 tablet in the evening. amiodarone 2021-05 Yes 200mg Take 1 Univ ers 200 mg 0-11 tablet by ity of tablet 00:00: mouth in [place] 00 the Medical morning. Branch aspirin 2021-05 Yes 81mg Take 1 Univers (NOEL LOW 0-11 tablet by ity of DOSE 00:00: mouth in [place] ASPIRIN) 81 00 the Medical mg EC morning. Branch tablet carvediloL 2021-05 Yes 6.25mg Take 1 Uni vers 6.25 mg 0-11 tablet by ity of tablet 00:00: mouth in [place] 00 the Medical morning Branch and 1 tablet in the evening. Take with meals. meclizine 2021-05 Yes 25mg Take 1 Univer s 25 mg 0-11 tablet by ity of tablet 00:00: mouth in [place] 00 the Medical morning Branch and 1 tablet at noon and 1 tablet in the evening. amiodarone 2021-05 Yes 200mg Take 1 Univ ers 200 mg 0-11 tablet by ity of tablet 00:00: mouth in [place] 00 the Medical morning. Branch aspirin 2021-05 Yes 81mg Take 1 Univers (NOEL LOW 0-11 tablet by ity of DOSE 00:00: mouth in [place] ASPIRIN) 81 00 the Medical mg EC morning. Branch tablet carvediloL 2021-05 Yes 6.25mg Take 1 Uni vers 6.25 mg 0-11 tablet by ity of tablet 00:00: mouth in [place] 00 the Medical morning Branch and 1 tablet in the evening. Take with meals. meclizine 2021-05 Yes 25mg Take 1 Univer s 25 mg 0-11 tablet by ity of tablet 00:00: mouth in [place] 00 the Medical morning Branch and 1 tablet at noon and 1 tablet in the evening. amiodarone 2021-05 Yes 200mg Take 1 Univ ers 200 mg 0-11 tablet by ity of tablet 00:00: mouth in [place] 00 the Medical morning. Branch aspirin 2021-05 Yes 81mg Take 1 Univers (NOEL LOW 0-11 tablet by ity of DOSE 00:00: mouth in [place] ASPIRIN) 81 00 the Medical mg EC morning. Branch tablet carvediloL 2021-05 Yes 6.25mg Take 1 Uni vers 6.25 mg 0-11 tablet by ity of tablet 00:00: mouth in [place] 00 the Medical morning Branch and 1 tablet in the evening. Take with meals. meclizine 2021-05 Yes 25mg Take 1 Univer s 25 mg 0-11 tablet by ity of tablet 00:00: mouth in [place] the Medical morning Branch and 1 tablet at noon and 1 tablet in the evening. amiodarone 2021-05 Yes 200mg Take 1 Univ ers 200 mg 0-11 tablet by ity of tablet 00:00: mouth in [place] the morning. Branch aspirin 2021-05 Yes 81mg Take 1 Univers (NOEL LOW 0-11 tablet by ity of DOSE 00:00: mouth in [place] ASPIRIN) 81 00 the Medical mg EC morning. Branch tablet carvediloL 2021-05 Yes 6.25mg Take 1 Uni vers 6.25 mg 0-11 tablet by ity of tablet 00:00: mouth in [place] the Medical morning Branch and 1 tablet in the evening. Take with meals. meclizine 2021-05 Yes 25mg Take 1 Univer s 25 mg 0-11 tablet by ity of tablet 00:00: mouth in [place] the Medical morning Branch and 1 tablet at noon and 1 tablet in the evening. amiodarone 2021-05 Yes 200mg Take 1 Univ ers 200 mg 0-11 tablet by ity of tablet 00:00: mouth in [place] the . Branch aspirin 2021-05 Yes 81mg Take 1 Univers (NOEL LOW 0-11 tablet by ity of DOSE 00:00: mouth in [place] ASPIRIN) 81 00 the Medical mg EC morning. Branch tablet carvediloL 2021-05 Yes 6.25mg Take 1 Uni vers 6.25 mg 0-11 tablet by ity of tablet 00:00: mouth in [place] the Medical morning Branch and 1 tablet in the evening. Take with meals. meclizine 2021-05 Yes 25mg Take 1 Univer s 25 mg 0-11 tablet by ity of tablet 00:00: mouth in [place] the Medical morning Branch and 1 tablet at noon and 1 tablet in the evening. amiodarone 2021-05 Yes 200mg Take 1 [facility] ers 200 mg 0-11 tablet by it[facility] of tablet 00:00: mouth in [place] the morning. Branch aspirin 81 2021-05 Yes 81mg Take 1 [facility] rs mg EC 0-11 tablet by ity of tablet 00:00: mouth in [place] the morning. Branch carvediloL 2021-05 Yes 6.25mg Take 1 [facility] vers 6.25 mg 0-11 tablet by ity of tablet 00:00: mouth in [place] the morning Branch and 1 tablet in the evening. Take with meals. meclizine 2021-05 Yes 25mg Take 1 [facility] s 25 mg 0-11 tablet by ity of tablet 00:00: mouth in [place] the Medical morning Branch and 1 tablet at noon and 1 tablet in the evening. amiodarone 2021-05 Yes 200mg Take 1 [facility] 200 mg 0-11 tablet by ity of tablet 00:00: mouth in [place] the morning. Branch aspirin 81 2021-05 Yes 81mg Take 1 [facility] rs mg EC 0-11 tablet by ity of tablet 00:00: mouth in [place] the morning. Branch carvediloL 2021-05 Yes 6.25mg Take 1 [facility] vers 6.25 mg 0-11 tablet by ity of tablet 00:00: mouth in [place] the morning Branch and 1 tablet in the evening. Take with meals. meclizine 2021-05 Yes 25mg Take 1 [facility] 25 mg 0-11 tablet by ity of tablet 00:00: mouth in [place] the morning Branch and 1 tablet at noon and 1 tablet in the evening. amiodarone 2021-05 Yes 200mg Take 1 [facility] ers 200 mg 0-11 tablet by ity of tablet 00:00: mouth in [place] the morning. Branch aspirin 81 2021-05 Yes 81mg Take 1 [facility] rs mg EC 0-11 tablet by ity of tablet 00:00: mouth in [place] the morning. Branch carvediloL 2021-05 Yes 6.25mg Take 1 [facility] vers 6.25 mg 0-11 tablet by ity of tablet 00:00: mouth in [place] the morning Branch and 1 tablet in the evening. Take with meals. meclizine 2021-05 Yes 25mg Take 1 [facility] 25 mg 0-11 tablet by ity of tablet 00:00: mouth in [place] the Medical morning Branch and 1 tablet at noon and 1 tablet in the evening. amiodarone 2021- Yes 200mg Take 1 [facility] 200 mg 0-11 tablet by ity of tablet 00:00: mouth in [place] the morning. Branch aspirin 81 2021-05 Yes 81mg Take 1 [facility] rs mg EC 0-11 tablet by ity of tablet 00:00: mouth in [place] the morning. Branch carvediloL 2021-05 Yes 6.25mg Take 1 [facility] vers 6.25 mg 0-11 tablet by ity of tablet 00:00: mouth in [place] the Medical morning Branch and 1 tablet in the evening. Take with meals. meclizine 2021-05 Yes 25mg Take 1 [facility] 25 mg 0-11 tablet by ity of tablet 00:00: mouth in [place] the Medical morning Branch and 1 tablet at noon and 1 tablet in the evening. amiodarone 2021-05 Yes 200mg Take 1 [facility] 200 mg 0-11 tablet by ity of tablet 00:00: mouth in [place] the morning. Branch aspirin 81 2021-05 Yes 81mg Take 1 [facility] rs mg EC 0-11 tablet by ity of tablet 00:00: mouth in [place] the morning. Branch carvediloL 2021-05 Yes 6.25mg Take 1 [facility] vers 6.25 mg 0-11 tablet by ity of tablet 00:00: mouth in [place] the morning Branch and 1 tablet in the evening. Take with meals. meclizine 2021-05 Yes 25mg Take 1 [facility] 25 mg 0-11 tablet by ity of tablet 00:00: mouth in [place] the Medical morning Branch and 1 tablet at noon and 1 tablet in the evening. amiodarone 2021-05 Yes 200mg Take 1 [facility] 200 mg 0-11 tablet by ity of tablet 00:00: mouth in [place] the morning. Branch aspirin 81 2021-05 Yes 81mg Take 1 [facility] rs mg EC 0-11 tablet by ity of tablet 00:00: mouth in [place] the morning. Branch carvediloL 2021-05 Yes 6.25mg Take 1 [facility] vers 6.25 mg 0-11 tablet by ity of tablet 00:00: mouth in [place] the Medical morning Branch and 1 tablet in the evening. Take with meals. meclizine 2021-05 Yes 25mg Take 1 [facility] 25 mg 0-11 tablet by ity of tablet 00:00: mouth in [place] the Medical morning Branch and 1 tablet at noon and 1 tablet in the evening. amiodarone 2021-05 Yes 200mg Take 1 [facility] 200 mg 0-11 tablet by ity of tablet 00:00: mouth in [place] the morning. Branch aspirin 81 2021-05 Yes 81mg Take 1 [facility] rs mg EC 0-11 tablet by ity of tablet 00:00: mouth in [place] the . Branch carvediloL 2021-05 Yes 6.25mg Take 1 [facility] vers 6.25 mg 0-11 tablet by ity of tablet 00:00: mouth in [place] the Medical morning Branch and 1 tablet in the evening. Take with meals. meclizine 2021-05 Yes 25mg Take 1 [facility] 25 mg 0-11 tablet by it[facility] of tablet 00:00: mouth in [place] the morning Branch and 1 tablet at noon and 1 tablet in the evening. amiodarone 2021-05 Yes 200mg Take 1 [facility] 200 mg 0-11 tablet by ity of tablet 00:00: mouth in [place] the . Branch aspirin 81 2021-05 Yes 81mg Take 1 [facility] rs mg EC 0-11 tablet by ity of tablet 00:00: mouth in [place] the . Branch carvediloL 2021-05 Yes 6.25mg Take 1 [facility] vers 6.25 mg 0-11 tablet by ity of tablet 00:00: mouth in [place] the morning Branch and 1 tablet in the evening. Take with meals. meclizine 2021-05 Yes 25mg Take 1 [facility] 25 mg 0-11 tablet by ity of tablet 00:00: mouth in [place] the Medical morning Branch and 1 tablet at noon and 1 tablet in the evening. amiodarone 2021-05 Yes 200mg Take 1 [facility] 200 mg 0-11 tablet by ity of tablet 00:00: mouth in [place] the morning. Branch bumetanide Yes 1mg Take 1 [facility] rs 1 mg tablet 7-19 tablet by ity of 00:00: mouth in [place] the Medical morning Branch and 1 tablet in the evening. bumetanide 2021- Yes 1mg Take 1 [facility] rs 1 mg tablet 7-19 tablet by ity of 00:00: mouth in [place] 00 the Medical morning Branch and 1 tablet in the evening. bumetanide 2022-0 Yes 1mg Take 1 [facility] rs 1 mg tablet 7-19 tablet by ity of 00:00: mouth in [place] 00 the Medical morning Branch and 1 tablet in the evening. bumetanide 2022-0 Yes 1mg Take 1 [facility] rs 1 mg tablet 7-19 tablet by ity of 00:00: mouth in [place] 00 the Medical morning Branch and 1 tablet in the evening. bumetanide 2022-0 Yes 1mg Take 1 [facility] rs 1 mg tablet 7-19 tablet by ity of 00:00: mouth in [place] 00 the Medical morning Branch and 1 tablet in the evening. bumetanide 2022-0 Yes 1mg Take 1 [facility] rs 1 mg tablet 7-19 tablet by ity of 00:00: mouth in [place] [address] the Medical morning Branch and 1 tablet in the evening. bumetanide 2022-0 Yes 1mg Take 1 [facility] rs 1 mg tablet 7-19 tablet by ity of 00:00: mouth in [place] [address] the Medical morning Branch and 1 tablet in the evening. bumetanide 2022-0 Yes 1mg Take 1 [facility] rs 1 mg tablet 7-19 tablet by ity of 00:00: mouth in [place] [address] the Medical morning Branch and 1 tablet in the evening. bumetanide 2022-0 Yes 1mg Take 1 [facility] rs 1 mg tablet 7-19 tablet by ity of 00:00: mouth in [place] [address] the Medical morning Branch and 1 tablet in the evening. bumetanide 2022-0 Yes 1mg Take 1 [facility] rs 1 mg tablet 7-19 tablet by ity of 00:00: mouth in [place] [address] the Medical morning Branch and 1 tablet in the evening. bumetanide 2022-0 Yes 1mg Take 1 [facility] rs 1 mg tablet 7-19 tablet by ity of 00:00: mouth in [place] [address] the Medical morning Branch and 1 tablet in the evening. bumetanide 2022-0 Yes 1mg Take 1 [facility] rs 1 mg tablet 7-19 tablet by ity of 00:00: mouth in [place] [address] the Medical morning Branch and 1 tablet in the evening. bumetanide 2022-0 Yes 1mg Take 1 [facility] rs 1 mg tablet 7-19 tablet by ity of 00:00: mouth in [place] 00 the Medical morning Branch and 1 tablet in the evening. bumetanide 2-0 Yes 1mg Take 1 [facility] rs 1 mg tablet 7-19 tablet by ity of 00:00: mouth in [place] 00 the Medical morning Branch and 1 tablet in the evening. bumetanide 2021-0 Yes 1mg Take 1 [facility] rs 1 mg tablet 7-19 tablet by ity of 00:00: mouth in [place] [address] the Medical morning Branch and 1 tablet in the evening. bumetanide 2021-0 Yes 1mg Take 1 [facility] rs 1 mg tablet 7-19 tablet by ity of 00:00: mouth in [place] [address] the Medical morning Branch and 1 tablet in the evening. bumetanide 2021-0 Yes 1mg Take 1 [facility] rs 1 mg tablet 7-19 tablet by ity of 00:00: mouth in [place] [address] [facility] morning [place] and 1 tablet in the evening. bumetanide 2021-0 Yes 1mg Take 1 [facility] rs 1 mg tablet 7-19 tablet by ity of 00:00: mouth in [place] [address] the Medical morning [place] and 1 tablet in the evening. bumetanide 2021-0 Yes 1mg Take 1 [facility] rs 1 mg tablet 7-19 tablet by ity of 00:00: mouth in [place] [address] the [facility] morning [place] and 1 tablet in the evening. bumetanide 2021-0 Yes 1mg Take 1 [facility] rs 1 mg tablet 7-19 tablet by ity of 00:00: mouth in [place] [address] the [facility] morning [place] and 1 tablet in the evening. bumetanide 2021-0 2022- No 1mg Take 1 [facility] ers 1 mg tablet 7-19 -12 tablet by it y of 00:00: 00:00 mouth in [place] 00 :00 the Medical morning Branch and 1 tablet in the evening. Mupirocin 2 Mupirocin 2 2021-0 2022- No 1{appli BID Mupirocin % % 12-04 07-24 cation} 2 % 00:00: 00:00 00 :00 glimepiride 2021-0 Yes 2mg Take 2 mg U nivers 2 mg tablet 4-08 by mouth ity of 16:21: daily with [place] [address] breakfast. Medical Branch glimepiride 2-0 Yes 2mg Take 2 mg U nivers 2 mg tablet 4-08 by mouth ity of 16:21: daily with [place] [address] breakfast. Medical Branch glimepiride 2-0 Yes 2mg Take 2 mg U nivers 2 mg tablet 4-08 by mouth ity of 16:21: daily with [place] [address] breakfast. Medical Branch glimepiride 2-0 Yes 2mg Take 2 mg U nivers 2 mg tablet 4-08 by mouth ity of 16:21: daily with [place] [address] breakfast. Medical Branch glimepiride 2-0 Yes 2mg Take 2 mg U nivers 2 mg tablet 4-08 by mouth ity of 16:21: daily with [place] [address] breakfast. Medical Branch glimepiride 2-0 Yes 2mg Take 2 mg U nivers 2 mg tablet 4-08 by mouth ity of 16:21: daily with [place] [address] breakfast. Medical Branch glimepiride 2-0 Yes 2mg Take 2 mg U nivers 2 mg tablet 4-08 by mouth ity of 16:21: daily with [place] [address] breakfast. Medical Branch glimepiride 2-0 Yes 2mg Take 2 mg U nivers 2 mg tablet 4-08 by mouth ity of 16:21: daily with [place] [address] breakfast. Medical Branch glimepiride 2-0 Yes 2mg Take 2 mg U nivers 2 mg tablet 4-08 by mouth ity of 16:21: daily with [place] [address] breakfast. Medical Branch glimepiride 2-0 Yes 2mg Take 2 mg U nivers 2 mg tablet 4-08 by mouth ity of 16:21: daily with [place] [address] breakfast. Medical Branch glimepiride 2-0 Yes 2mg Take 2 mg U nivers 2 mg tablet 4-08 by mouth ity of 16:21: daily with [place] [address] breakfast. Medical Branch glimepiride 2-0 Yes 2mg Take 2 mg U nivers 2 mg tablet 4-08 by mouth ity of 16:21: daily with [place] [address] breakfast. Medical Branch glimepiride 2-0 Yes 2mg Take 2 mg U nivers 2 mg tablet 4-08 by mouth ity of 16:21: daily with [place] [address] breakfast. Medical Branch glimepiride 2022-0 Yes 2mg Take 2 mg U nivers 2 mg tablet 4-08 by mouth ity of 16:21: daily with [place] [address] breakfast. [facility] Branch glimepiride 0 Yes 2mg Take 2 mg U nivers 2 mg tablet 4-08 by mouth ity of 16:21: daily with [place] 44 breakfast. [facility] Branch glimepiride 0 Yes 2mg Take 2 mg U nivers 2 mg tablet 4-08 by mouth ity of 16:21: daily with [place] [address] breakfast. [facility] Branch glimepiride 0 Yes 2mg Take 2 mg U nivers 2 mg tablet 4-08 by mouth ity of 16:21: daily with [place] 44 breakfast. [facility] Branch glimepiride 0 Yes 2mg Take 2 mg U nivers 2 mg tablet 4-08 by mouth ity of 16:21: daily with [place] [address] breakfast. [facility] glimepiride 0 Yes 2mg Take 2 mg U nivers 2 mg tablet 4-08 by mouth ity of 16:21: daily with [place] [address] breakfast. [facility] glimepiride 0 Yes 2mg Take 2 mg U nivers 2 mg tablet 4-08 by mouth ity of 16:21: daily with [place] [address] breakfast. [facility] glimepiride 0 Yes 2mg Take 2 mg U nivers 2 mg tablet 4-08 by mouth ity of 16:21: daily with [place] [address] breakfast. [facility] glimepiride 0 Yes 2mg Take 2 mg U nivers 2 mg tablet 4-08 by mouth ity of 16:21: daily with [place] [address] breakfast. [facility] glimepiride 0 Yes 2mg Take 2 mg U nivers 2 mg tablet 4-08 by mouth ity of 16:21: daily with [place] [address] breakfast. [facility] Branch glimepiride 0 Yes 2mg Take 2 mg U nivers 2 mg tablet 4-08 by mouth ity of 16:21: daily with [place] 44 breakfast. [facility] spironolact 0 Yes [id number] 12.5mg Take 0.5 [facility] one 25 mg 4-08 tablets by ity of tablet 00:00: mouth [place] 00 daily. [facility] Branch bumetanide 0 Yes [id number] 1mg Take 1 [facility] 1 mg tablet 4-08 tablet by ity of 00:00: mouth [place] 00 daily. Medical Branch empaglifloz 2021-0 Yes [id number] 10mg Take 1 [facility] in 10 mg 4-08 tablet by ity of 00:00: mouth [place] 00 daily. Medical Branch spironolact 2021-0 Yes [id number] 12.5mg Take 0.5 [facility] one 25 mg 4-08 tablets by ity of tablet 00:00: mouth [place] 00 daily. Medical Branch empaglifloz 2021-0 Yes [id number] 10mg Take 1 [facility] in 10 mg 4-08 tablet by ity of 00:00: mouth [place] 00 daily. Medical Branch spironolact 2021-0 Yes [id number] 12.5mg Take 0.5 [facility] one 25 mg 4-08 tablets by ity of tablet 00:00: mouth [place] 00 daily. Medical Branch empaglifloz 2021-0 Yes [id number] 10mg Take 1 [facility] in 10 mg 4-08 tablet by ity of 00:00: mouth [place] 00 daily. Medical Branch spironolact 2021-0 Yes [id number] 12.5mg Take 0.5 [facility] one 25 mg 4-08 tablets by ity of tablet 00:00: mouth [place] 00 daily. Medical Branch empaglifloz 2021-0 Yes [id number] 10mg Take 1 [facility] in 10 mg 4-08 tablet by ity of 00:00: mouth [place] 00 daily. Medical Branch spironolact 2021-0 Yes [id number] 12.5mg Take 0.5 [facility] one 25 mg 4-08 tablets by ity of tablet 00:00: mouth [place] 00 daily. Medical Branch empaglifloz 2021-0 Yes [id number] 10mg Take 1 [facility] in 10 mg 4-08 tablet by ity of 00:00: mouth [place] 00 daily. Medical Branch spironolact 2021-0 Yes [id number] 12.5mg Take 0.5 [facility] one 25 mg 4-08 tablets by ity of tablet 00:00: mouth [place] 00 daily. Medical Branch empaglifloz 2-0 Yes [id number] 10mg Take 1 [facility] in 10 mg 4-08 tablet by ity of 00:00: mouth [place] 00 daily. Medical Branch spironolact 2021-0 Yes [id number] 12.5mg Take 0.5 [facility] one 25 mg 4-08 tablets by ity of tablet 00:00: mouth [place] 00 daily. Medical Branch empaglifloz 2-0 Yes [id number] 10mg Take 1 [facility] in 10 mg 4-08 tablet by ity of 00:00: mouth [place] 00 daily. Medical Branch spironolact 2-0 Yes [id number] 12.5mg Take 0.5 [facility] one 25 mg 4-08 tablets by ity of tablet 00:00: mouth [place] 00 daily. Medical Branch empaglifloz 2-0 Yes [id number] 10mg Take 1 [facility] in 10 mg 4-08 tablet by ity of 00:00: mouth [place] 00 daily. Medical Branch spironolact 2021-0 Yes [id number] 12.5mg Take 0.5 [facility] one 25 mg 4-08 tablets by ity of tablet 00:00: mouth [place] 00 daily. Medical Branch empaglifloz 2021-0 Yes [id number] 10mg Take 1 [facility] in 10 mg 4-08 tablet by ity of 00:00: mouth [place] 00 daily. [facility] Branch spironolact 2021-0 Yes [id number] 12.5mg Take 0.5 Univers one 25 mg 4-08 tablets by ity of tablet 00:00: mouth [place] 00 daily. Medical Branch empaglifloz 2021-0 Yes [id number] 10mg Take 1 [facility] in 10 mg 4-08 tablet by ity of 00:00: mouth [place] 00 daily. Medical Branch spironolact 2-0 Yes [id number] 12.5mg Take 0.5 [facility] one 25 mg 4-08 tablets by ity of tablet 00:00: mouth [place] 00 daily. Medical Branch empaglifloz 2-0 Yes [id number] 10mg Take 1 [facility] in 10 mg 4-08 tablet by ity of 00:00: mouth [place] 00 daily. Medical Branch spironolact 2-0 Yes [id number] 12.5mg Take 0.5 [facility] one 25 mg 4-08 tablets by ity of tablet 00:00: mouth [place] 00 daily. Medical Branch empaglifloz 2-0 Yes [id number] 10mg Take 1 [facility] in 10 mg 4-08 tablet by ity of 00:00: mouth [place] 00 daily. Medical Branch spironolact 2-0 Yes [id number] 12.5mg Take 0.5 [facility] one 25 mg 4-08 tablets by ity of tablet 00:00: mouth [place] 00 daily. Medical Branch empaglifloz 2-0 Yes [id number] 10mg Take 1 [facility] in 10 mg 4-08 tablet by ity of 00:00: mouth [place] 00 daily. Medical Branch spironolact 2-0 Yes [id number] 12.5mg Take 0.5 [facility] one 25 mg 4-08 tablets by ity of tablet 00:00: mouth [place] 00 daily. Medical Branch empaglifloz 2-0 Yes [id number] 10mg Take 1 [facility] in 10 mg 4-08 tablet by ity of 00:00: mouth [place] 00 daily. [facility] Branch spironolact 2021-0 Yes [id number] 12.5mg Take 0.5 Univers one 25 mg 4-08 tablets by ity of tablet 00:00: mouth [place] 00 daily. [facility] Branch empaglifloz 2-0 Yes [id number] 10mg Take 1 Univers in 10 mg 4-08 tablet by ity of 00:00: mouth [place] 00 daily. [facility] Branch spironolact 2021-0 Yes [id number] 12.5mg Take 0.5 Univers one 25 mg 4-08 tablets by ity of tablet 00:00: mouth [place] 00 daily. [facility] Branch empaglifloz 2-0 Yes [id number] 10mg Take 1 Univers in 10 mg 4-08 tablet by ity of 00:00: mouth [place] 00 daily. [facility] Branch spironolact 2-0 Yes [id number] 12.5mg Take 0.5 [facility] one 25 mg 4-08 tablets by ity of tablet 00:00: mouth [place] 00 daily. Medical Branch empaglifloz 2-0 Yes [id number] 10mg Take 1 [facility] in 10 mg 4-08 tablet by ity of 00:00: mouth [place] 00 daily. [facility] Branch spironolact 2-0 Yes [id number] 12.5mg Take 0.5 [facility] one 25 mg 4-08 tablets by ity of tablet 00:00: mouth [place] 00 daily. [facility] Branch empaglifloz 2-0 Yes [id number] 10mg Take 1 [facility] in 10 mg 4-08 tablet by ity of 00:00: mouth [place] 00 daily. [facility] Branch spironolact 2-0 Yes [id number] 12.5mg Take 0.5 [facility] one 25 mg 4-08 tablets by ity of tablet 00:00: mouth [place] 00 daily. [facility] Branch empaglifloz 2-0 Yes [id number] 10mg Take 1 [facility] in 10 mg 4-08 tablet by ity of 00:00: mouth [place] 00 daily. [facility] Branch spironolact 2-0 Yes [id number] 12.5mg Take 0.5 [facility] one 25 mg 4-08 tablets by ity of tablet 00:00: mouth [place] 00 daily. [facility] Branch empaglifloz 2-0 Yes [id number] 10mg Take 1 [facility] in 10 mg 4-08 tablet by ity of 00:00: mouth [place] 00 daily. [facility] Branch spironolact 2021-0 Yes [id number] 12.5mg Take 0.5 [facility] one 25 mg 4-08 tablets by ity of tablet 00:00: mouth [place] 00 daily. [facility] Branch empaglifloz 2-0 Yes [id number] 10mg Take 1 [facility] in 10 mg 4-08 tablet by ity of 00:00: mouth [place] 00 daily. [facility] Branch spironolact 2021-0 Yes [id number] 12.5mg Take 0.5 [facility] one 25 mg 4-08 tablets by ity of tablet 00:00: mouth [place] 00 daily. [facility] Branch empaglifloz 2-0 Yes [id number] 10mg Take 1 Univers in 10 mg 4-08 tablet by ity of 00:00: mouth [place] 00 daily. [facility] Branch spironolact 2-0 Yes [id number] 12.5mg Take 0.5 [facility] one 25 mg 4-08 tablets by ity of tablet 00:00: mouth [place] 00 daily. [facility] Branch empaglifloz 2-0 Yes [id number] 10mg Take 1 Univers in 10 mg 4-08 tablet by ity of 00:00: mouth [place] 00 daily. [facility] Branch spironolact 2-0 Yes [id number] 12.5mg Take 0.5 [facility] one 25 mg 4-08 tablets by ity of tablet 00:00: mouth [place] 00 daily. [facility] Branch empaglifloz 2-0 Yes [id number] 10mg Take 1 [facility] in 10 mg 4-08 tablet by ity of 00:00: mouth [place] 00 daily. [facility] Branch spironolact 2021-0 Yes [id number] 12.5mg Take 0.5 [facility] one 25 mg 4-08 tablets by ity of tablet 00:00: mouth [place] 00 daily. [facility] Branch empaglifloz 2021-0 Yes [id number] 10mg Take 1 [facility] in 10 mg 4-08 tablet by ity of 00:00: mouth [place] 00 daily. Medical Branch spironolact 2021-0 Yes [id number] 12.5mg Take 0.5 [facility] one 25 mg 4-08 tablets by ity of tablet 00:00: mouth [place] 00 daily. [facility] Branch empaglifloz 2021-0 Yes [id number] 10mg Take 1 [facility] in 10 mg 4-08 tablet by ity of 00:00: mouth [place] 00 daily. [facility] Branch spironolact 2021-0 Yes [id number] 12.5mg Take 0.5 [facility] one 25 mg 4-08 tablets by ity of tablet 00:00: mouth [place] 00 daily. Medical Branch empaglifloz 2021-0 Yes [id number] 10mg Take 1 [facility] in 10 mg 4-08 tablet by ity of 00:00: mouth [place] 00 daily. [facility] Branch spironolact 2021-0 Yes [id number] 12.5mg Take 0.5 [facility] one 25 mg 4-08 tablets by ity of tablet 00:00: mouth [place] 00 daily. [facility] Branch empaglifloz 2021-0 Yes [id number] 10mg Take 1 [facility] in 10 mg 4-08 tablet by ity of 00:00: mouth [place] 00 daily. Medical Branch spironolact 2-0 Yes [id number] 12.5mg Take 0.5 [facility] one 25 mg 4-08 tablets by ity of tablet 00:00: mouth [place] 00 daily. [facility] Branch empaglifloz 2-0 Yes [id number] 10mg Take 1 Univers in 10 mg 4-08 tablet by ity of 00:00: mouth [place] 00 daily. [facility] Branch spironolact 2-0 Yes [id number] 12.5mg Take 0.5 [facility] one 25 mg 4-08 tablets by ity of tablet 00:00: mouth [place] 00 daily. [facility] Branch empaglifloz 2022-0 Yes [id number] 10mg Take 1 [facility] in 10 mg 4-08 tablet by ity of 00:00: mouth [place] 00 daily. Medical Branch spironolact 2021-0 Yes [id number] 12.5mg Take 0.5 [facility] one 25 mg 4-08 tablets by ity of tablet 00:00: mouth [place] 00 daily. Medical Branch empaglifloz 2021-0 Yes [id number] 10mg Take 1 [facility] in 10 mg 4-08 tablet by ity of 00:00: mouth [place] 00 daily. Medical Branch spironolact 2021-0 Yes [id number] 12.5mg Take 0.5 [facility] one 25 mg 4-08 tablets by ity of tablet 00:00: mouth [place] 00 daily. Medical Branch empaglifloz 2021-0 Yes [id number] 10mg Take 1 [facility] in 10 mg 4-08 tablet by ity of 00:00: mouth [place] 00 daily. Medical Branch bumetanide 0 2021- No [id number] 1mg Take 1 [facility] 1 mg tablet 4-12 23-19 tablet by it y of 00:00: 00:00 mouth [place] 00 :00 daily. Medical Branch metformin 0 Yes 500mg Take 500 Uni vers HCl 2-01 mg by ity of (METFORMIN 14:05: [place] (two) Medical times Branch daily with meals. sacubitriL- 2021-0 Yes 1{tbl} Take 1 Un winter valsartan 2-01 tablet by ity o f 49-51 mg 14:05: mouth 2 [place] tablet 56 (two) Medical times Branch daily. carvediloL 0 Yes 12.5mg Take 12.5 Univers 12.5 mg 2-01 mg by ity of tablet 14:05: mouth 2 [place] 56 (two) Medical times Branch daily with meals. NOEL 2021-0 Yes Take by Univers ASPIRIN 2-01 mouth. ity of ORAL 14:05: [place] 56 Medical Branch metformin 2021-0 Yes 500mg Take 500 Uni vers HCl 2-01 mg by ity of (METFORMIN 14:05: [place] (two) Medical times Branch daily with meals. sacubitriL- 2021-0 Yes 1{tbl} Take 1 Un winter valsartan 2-01 tablet by ity o f 49-51 mg 14:05: mouth 2 [place] tablet 56 (two) Medical times Branch daily. carvediloL 2-0 Yes 12.5mg Take 12.5 Univers 12.5 mg 2-01 mg by ity of tablet 14:05: mouth 2 [place] 56 (two) Medical times Branch daily with meals. NOEL 2-0 Yes Take by [facility] ASPIRIN 2-01 mouth. ity of ORAL 14:05: [place] [address] Medical Branch metformin 2021-0 Yes 500mg Take 500 Uni vers HCl 2-01 mg by ity of (METFORMIN 14:05: mouth [place] (two) Medical times Branch daily with meals. sacubitriL- 2021-0 Yes 1{tbl} Take 1 Un winter valsartan 2-01 tablet by ity o f 49-51 mg 14:05: mouth 2 [place] tablet 56 (two) Medical times Branch daily. carvediloL 2-0 Yes 12.5mg Take 12.5 Univers 12.5 mg 2-01 mg by ity of tablet 14:05: mouth 2 [place] [address] (two) Medical times Branch daily with meals. NOEL 2021-0 Yes Take by [facility] ASPIRIN 2-01 mouth. ity of ORAL 14:05: [place] [address] Medical Branch metformin 2021-0 Yes 500mg Take 500 Uni vers HCl 2-01 mg by ity of (METFORMIN 14:05: mouth [place] (two) Medical times Branch daily with meals. sacubitriL- 2021-0 Yes 1{tbl} Take 1 Un winter valsartan 2-01 tablet by ity o f 49-51 mg 14:05: mouth 2 [place] tablet 56 (two) Medical times Branch daily. carvediloL 2-0 Yes 12.5mg Take 12.5 Univers 12.5 mg 2-01 mg by ity of tablet 14:05: mouth 2 [place] 56 (two) Medical times Branch daily with meals. NOEL 2-0 Yes Take by [facility] ASPIRIN 2-01 mouth. ity of ORAL 14:05: [place] [address] Medical Branch metformin 2-0 Yes 500mg Take 500 Uni vers HCl 2-01 mg by ity of (METFORMIN 14:05: mouth [place] (two) Medical times Branch daily with meals. sacubitriL- 2022-0 Yes 1{tbl} Take 1 Un winter valsartan 2-01 tablet by ity o f 49-51 mg 14:05: mouth 2 [place] tablet 56 (two) Medical times Branch daily. carvediloL 2-0 Yes 12.5mg Take 12.5 Univers 12.5 mg 2-01 mg by ity of tablet 14:05: mouth 2 [place] 56 (two) Medical times Branch daily with meals. NOEL 2021-0 Yes Take by [facility] ASPIRIN 2-01 mouth. ity of ORAL 14:05: [place] [address] Medical Branch metformin 2021-0 Yes 500mg Take 500 Uni vers HCl 2-01 mg by ity of (METFORMIN 14:05: mouth [place] (two) Medical times Branch daily with meals. sacubitriL- 2021-0 Yes 1{tbl} Take 1 Un winter valsartan 2-01 tablet by ity o f 49-51 mg 14:05: mouth 2 [place] tablet 56 (two) Medical times Branch daily. carvediloL 2-0 Yes 12.5mg Take 12.5 [facility] 12.5 mg 2-01 mg by ity of tablet 14:05: mouth 2 [place] [address] (two) Medical times Branch daily with meals. NOEL 2021-0 Yes Take by [facility] ASPIRIN 2-01 mouth. ity of ORAL 14:05: [place] [address] Medical Branch metformin 2021-0 Yes 500mg Take 500 Uni vers HCl 2-01 mg by ity of (METFORMIN 14:05: [place] 2 [place] (two) Medical times Branch daily with meals. sacubitriL- 2-0 Yes 1{tbl} Take 1 Un winter valsartan 2-01 tablet by ity o f 49-51 mg 14:05: mouth 2 [place] tablet 56 (two) Medical times Branch daily. carvediloL 2-0 Yes 12.5mg Take 12.5 [facility] 12.5 mg 2-01 mg by ity of tablet 14:05: mouth 2 [place] [address] (two) Medical times Branch daily with meals. NOEL 2021-0 Yes Take by [facility] ASPIRIN 2-01 mouth. ity of ORAL 14:05: [place] [address] Medical Branch metformin 2-0 Yes 500mg Take 500 [facility] vers HCl 2-01 mg by [facility] of (METFORMIN 14:05: [place] (two) Medical times Branch daily with meals. sacubitriL- 2022-0 Yes 1{tbl} Take 1 Un winter valsartan 2-01 tablet by ity o f 49-51 mg 14:05: mouth 2 [place] tablet 56 (two) Medical times Branch daily. carvediloL 2022-0 Yes 12.5mg Take 12.5 [facility] 12.5 mg 2-01 mg by ity of tablet 14:05: mouth 2 [place] 56 (two) Medical times Branch daily with meals. NOEL 2021-0 Yes Take by [facility] ASPIRIN 2-01 mouth. ity of ORAL 14:05: [place] [address] Medical Branch metformin 2021-0 Yes 500mg Take 500 [facility] vers HCl 2-01 mg by it[facility] of (METFORMIN 14:05: [place] (two) Medical times Branch daily with meals. sacubitriL- 2-0 Yes 1{tbl} Take 1 Un winter valsartan 2-01 tablet by ity o f 49-51 mg 14:05: mouth 2 [place] tablet 56 (two) Medical times Branch daily. carvediloL 2-0 Yes 12.5mg Take 12.5 [facility] 12.5 mg 2-01 mg by ity of tablet 14:05: mouth 2 [place] 56 (two) Medical times Branch daily with meals. NOEL 2021-0 Yes Take by [facility] ASPIRIN 2-01 mouth. ity of ORAL 14:05: [place] [address] Medical Branch metformin 2021-0 Yes 500mg Take 500 [facility] vers HCl 2-01 mg by it[facility] of (METFORMIN 14:05: [place] (two) Medical times Branch daily with meals. sacubitriL- 2-0 Yes 1{tbl} Take 1 Un winter valsartan 2-01 tablet by ity o f 49-51 mg 14:05: mouth 2 [place] tablet 56 (two) Medical times Branch daily. carvediloL 2-0 Yes 12.5mg Take 12.5 [facility] 12.5 mg 2-01 mg by ity of tablet 14:05: mouth 2 [place] 56 (two) Medical times Branch daily with meals. NOEL 2-0 Yes Take by [facility] ASPIRIN 2-01 mouth. ity of ORAL 14:05: [place] 56 Medical Branch metformin 2022-0 Yes 500mg Take 500 [facility] vers HCl 2-01 mg by it[facility] of (METFORMIN 14:05: [place] (two) Medical times Branch daily with meals. sacubitriL- 2022-0 Yes 1{tbl} Take 1 Un winter valsartan 2-01 tablet by ity o f 49-51 mg 14:05: mouth 2 [place] tablet 56 (two) Medical times Branch daily. metformin 2022-0 Yes 500mg Take 500 [facility] vers HCl 2-01 mg by ity of (METFORMIN 14:05: mouth 2 [place] (two) Medical times Branch daily with meals. sacubitriL- 2022-0 Yes 1{tbl} Take 1 Un winter valsartan 2-01 tablet by ity o f 49-51 mg 14:05: mouth 2 [place] tablet 56 (two) Medical times Branch daily. metformin 2022-0 Yes 500mg Take 500 [facility] vers HCl 2-01 mg by ity of (METFORMIN 14:05: mouth 2 [place] (two) Medical times Branch daily with meals. sacubitriL- 2022-0 Yes 1{tbl} Take 1 Un winter valsartan 2-01 tablet by ity o f 49-51 mg 14:05: mouth 2 [place] tablet 56 (two) Medical times Branch daily. metformin 2022-0 Yes 500mg Take 500 [facility] vers HCl 2-01 mg by ity of (METFORMIN 14:05: mouth 2 [place] (two) Medical times Branch daily with meals. sacubitriL- 2022-0 Yes 1{tbl} Take 1 Un winter valsartan 2-01 tablet by ity o f 49-51 mg 14:05: mouth 2 [place] tablet 56 (two) Medical times Branch daily. metformin 2022-0 Yes 500mg Take 500 [facility] vers HCl 2-01 mg by ity of (METFORMIN 14:05: mouth 2 [place] (two) Medical times Branch daily with meals. sacubitriL- 2022-0 Yes 1{tbl} Take 1 Un winter valsartan 2-01 tablet by ity o f 49-51 mg 14:05: mouth 2 [place] tablet 56 (two) Medical times Branch daily. metformin 2022-0 Yes 500mg Take 500 [facility] vers HCl 2-01 mg by ity of (METFORMIN 14:05: mouth 2 [place] (two) Medical times Branch daily with meals. sacubitriL- 2022-0 Yes 1{tbl} Take 1 Un winter valsartan 2-01 tablet by ity o f 49-51 mg 14:05: mouth 2 [place] tablet 56 (two) Medical times Branch daily. metformin 2022-0 Yes 500mg Take 500 [facility] vers HCl 2-01 mg by ity of (METFORMIN 14:05: mouth 2 [place] (two) Medical times Branch daily with meals. sacubitriL- 2022-0 Yes 1{tbl} Take 1 Un winter valsartan 2-01 tablet by ity o f 49-51 mg 14:05: mouth 2 [place] tablet 56 (two) Medical times Branch daily. metformin 2022-0 Yes 500mg Take 500 [facility] vers HCl 2-01 mg by ity of (METFORMIN 14:05: mouth 2 [place] (two) Medical times Branch daily with meals. sacubitriL- 2-0 Yes 1{tbl} Take 1 Un winter valsartan 2-01 tablet by ity o f 49-51 mg 14:05: mouth 2 [place] tablet 56 (two) Medical times Branch daily. metformin 2022-0 Yes 500mg Take 500 Uni vers HCl 2-01 mg by ity of (METFORMIN 14:05: mouth 2 [place] (two) Medical times Branch daily with meals. sacubitriL- 2022-0 Yes 1{tbl} Take 1 Un winter valsartan 2-01 tablet by ity o f 49-51 mg 14:05: mouth 2 [place] tablet 56 (two) Medical times Branch daily. metformin 2022-0 Yes 500mg Take 500 Uni vers HCl 2-01 mg by ity of (METFORMIN 14:05: mouth 2 [place] (two) Medical times Branch daily with meals. sacubitriL- 2022-0 Yes 1{tbl} Take 1 Un winter valsartan 2-01 tablet by ity o f 49-51 mg 14:05: mouth 2 [place] tablet 56 (two) Medical times Branch daily. metformin 2022-0 Yes 500mg Take 500 Uni vers HCl 2-01 mg by ity of (METFORMIN 14:05: mouth 2 [place] (two) Medical times Branch daily with meals. sacubitriL- 2022-0 Yes 1{tbl} Take 1 Un winter valsartan 2-01 tablet by ity o f 49-51 mg 14:05: mouth 2 [place] tablet 56 (two) Medical times Branch daily. metformin 2022-0 Yes 500mg Take 500 Uni vers HCl 2-01 mg by ity of (METFORMIN 14:05: mouth 2 [place] (two) Medical times Branch daily with meals. sacubitriL- 2022-0 Yes 1{tbl} Take 1 Un winter valsartan 2-01 tablet by ity o f 49-51 mg 14:05: mouth 2 [place] tablet 56 (two) Medical times Branch daily. metformin 2-0 Yes 500mg Take 500 Uni vers HCl 2-01 mg by ity of (METFORMIN 14:05: mouth 2 [place] (two) Medical times Branch daily with meals. sacubitriL- 2022-0 Yes 1{tbl} Take 1 Un winter valsartan 2-01 tablet by ity o f 49-51 mg 14:05: mouth 2 [place] tablet 56 (two) Medical times Branch daily. metformin 2-0 Yes 500mg Take 500 Uni vers HCl 2-01 mg by ity of (METFORMIN 14:05: mouth 2 [place] (two) Medical times Branch daily with meals. sacubitriL- 2022-0 Yes 1{tbl} Take 1 Un winter valsartan 2-01 tablet by ity o f 49-51 mg 14:05: mouth 2 [place] tablet 56 (two) Medical times Branch daily. tizanidine 2020-05 Yes 4 mg = 1 Mem oria 4 MG Oral 1-04 tab, PO, l Tablet 18:45: Bedtime, # Savana nn [Zanaflex] 00 30 tab, 3 Refill(s), Pharmacy: [facility], 154.94, cm, 03/22/21 13:32:00 CDT, Height, 119.545, kg, 03/22/21 13:32:00 CDT, Weight tizanidine 2020-05 Yes 4 mg = 1 Mem oria 4 MG Oral 1-04 tab, PO, l Tablet 18:45: Bedtime, # [place] nn [Zanaflex] 00 30 tab, 3 Refill(s), Pharmacy: [facility], 154.94, cm, 03/22/21 13:32:00 CDT, Height, 119.545, kg, 03/22/21 13:32:00 CDT, Weight tizanidine 2020-05 Yes 4 mg = 1 Mem oria 4 MG Oral 1-04 tab, PO, l Tablet 18:45: Bedtime, # [place] nn [Zanaflex] 00 30 tab, 3 Refill(s), Pharmacy: [facility], 154.94, cm, 03/22/21 13:32:00 CDT, Height, 119.545, kg, 03/22/21 13:32:00 CDT, Weight tizanidine 2020-05 Yes 4 mg = 1 Mem oria 4 MG Oral 1-04 tab, PO, l Tablet 18:45: Bedtime, # [place] nn [Zanaflex] 00 30 tab, 3 Refill(s), Pharmacy: [facility], 154.94, cm, 03/22/21 13:32:00 CDT, Height, 119.545, kg, 03/22/21 13:32:00 CDT, Weight tizanidine 2020-05 Yes 4 mg = 1 Mem oria 4 MG Oral 1-04 tab, PO, l Tablet 18:45: Bedtime, # [place] nn [Zanaflex] 00 30 tab, 3 Refill(s), Pharmacy: [facility], 154.94, cm, 03/22/21 13:32:00 CDT, Height, 119.545, kg, 03/22/21 13:32:00 CDT, Weight tizanidine 2020-05 Yes 4 mg = 1 Mem oria 4 MG Oral 1-04 tab, PO, l Tablet 18:45: Bedtime, # [place] nn [Zanaflex] 00 30 tab, 3 Refill(s), Pharmacy: [facility], 154.94, cm, 03/22/21 13:32:00 CDT, Height, 119.545, kg, 03/22/21 13:32:00 CDT, Weight tizanidine 2020-05 Yes 4 mg = 1 Mem oria 4 MG Oral 1-04 tab, PO, l Tablet 18:45: Bedtime, # [place] nn [Zanaflex] 00 30 tab, 3 Refill(s), Pharmacy: [facility], 154.94, cm, 03/22/21 13:32:00 CDT, Height, 119.545, kg, 03/22/21 13:32:00 CDT, Weight Aspirin 2020-05 Yes 0 Memoria 0-06 Refill(s) l 19:55: Kasi 00 Aspirin 2020-05 Yes 0 Memoria 0-06 Refill(s) l 19:55: Eas[place] 00 Aspirin 2020-05 Yes 0 Memoria 0-06 Refill(s) l 19:55: Kasi 00 Aspirin 2020-05 Yes 0 Memoria 0-06 Refill(s) l 19:55: Easth[place] 00 Aspirin 2020-05 Yes 0 Memoria 0-06 Refill(s) l 19:55: [place] 00 Aspirin 2020-05 Yes 0 Memoria 0-06 Refill(s) l 19:55: [place] 00 Aspirin 2020-05 Yes 0 Memoria 0-06 Refill(s) l 19:55: Kasi 00 Potassium 2020-05 Yes 0 Memoria Chloride 0-06 Refill(s) l (Eqv-Klor-C 19:54: Ferdinand n on M20) 20 00 mEq oral tablet, extended release METFORMIN 2020-05 Yes METFORMIN Mem oria HYDROCHLORI 0-06 HYDROCHLOR l DE 500 MG 19:54: FABIEN 500 MG He rmann TABS 00 TABS, Refill(s) 0 carvedilol 2020-05 Yes 6.25 mg = Me moria 6.25 mg 0-06 1 tab, PO, l oral tablet 19:54: Q12H, # 60 Kasi 00 tab, 0 Refill(s) Potassium 2020-05 Yes 0 Memoria Chloride 0-06 Refill(s) l (Eqv-Klor-C 19:54: Ferdinand n on M20) 20 00 mEq oral tablet, extended release METFORMIN 2020-05 Yes METFORMIN Mem oria HYDROCHLORI 0-06 HYDROCHLOR l DE 500 MG 19:54: FABIEN 500 MG [place] TABS 00 TABS, Refill(s) 0 carvedilol 2020-05 Yes 6.25 mg = Me moria 6.25 mg 0-06 1 tab, PO, l oral tablet 19:54: Q12H, # 60 [place] 00 tab, 0 Refill(s) Potassium 2020-05 Yes 0 Memoria Chloride 0-06 Refill(s) l (Eqv-Klor-C 19:54: Ferdinand n on M20) 20 00 mEq oral tablet, extended release Potassium 2020-05 Yes 0 Memoria Chloride 0-06 Refill(s) l (Eqv-Klor-C 19:54: Ferdinand n on M20) 20 00 mEq oral tablet, extended release METFORMIN 2020-05 Yes METFORMIN Mem oria HYDROCHLORI 0-06 HYDROCHLOR l DE 500 MG 19:54: FABIEN 500 MG [place] TABS 00 TABS, Refill(s) 0 carvedilol 2020-05 Yes 6.25 mg = Me moria 6.25 mg 0-06 1 tab, PO, l oral tablet 19:54: Q12H, # 60 [place] 00 tab, 0 Refill(s) METFORMIN 2020-05 Yes METFORMIN Mem oria HYDROCHLORI 0-06 HYDROCHLOR l DE 500 MG 19:54: FABIEN 500 MG [place] TABS 00 TABS, Refill(s) 0 carvedilol 2020-05 Yes 6.25 mg = Me moria 6.25 mg 0-06 1 tab, PO, l oral tablet 19:54: Q12H, # 60 [place] 00 tab, 0 Refill(s) Potassium 2020-05 Yes 0 Memoria Chloride 0-06 Refill(s) l (Eqv-Klor-C 19:54: Ferdinand n on M20) 20 00 mEq oral tablet, extended release METFORMIN 2020-05 Yes METFORMIN Mem oria HYDROCHLORI 0-06 HYDROCHLOR l DE 500 MG 19:54: FABIEN 500 MG [place] TABS 00 TABS, Refill(s) 0 carvedilol 2020-05 Yes 6.25 mg = Me moria 6.25 mg 0-06 1 tab, PO, l oral tablet 19:54: Q12H, # 60 [place] 00 tab, 0 Refill(s) Potassium 2020-05 Yes 0 Memoria Chloride 0-06 Refill(s) l (Eqv-Klor-C 19:54: Ferdinand n on M20) 20 00 mEq oral tablet, extended release METFORMIN 2020-05 Yes METFORMIN Mem oria HYDROCHLORI 0-06 HYDROCHLOR l DE 500 MG 19:54: FABIEN 500 MG [place] TABS 00 TABS, Refill(s) 0 carvedilol 2020-05 Yes 6.25 mg = Me moria 6.25 mg 0-06 1 tab, PO, l oral tablet 19:54: Q12H, # 60 Kasi 00 tab, 0 Refill(s) Potassium 2020-05 Yes 0 Memoria Chloride 0-06 Refill(s) l (Eqv-Klor-C 19:54: Ferdinand n on M20) 20 00 mEq oral tablet, extended release METFORMIN 2020-05 Yes METFORMIN Mem oria HYDROCHLORI 0-06 HYDROCHLOR l DE 500 MG 19:54: FABIEN 500 MG [place] TABS 00 TABS, Refill(s) 0 carvedilol 2020-05 Yes 6.25 mg = Me moria 6.25 mg 0-06 1 tab, PO, l oral tablet 19:54: Q12H, # 60 Kasi 00 tab, 0 Refill(s) GLIMEPIRIDE 2020-05 Yes GLIMEPIRID Memoria 2MG TAB 0-06 E 2MG TAB, l 19:53: Refill(s) Eastham 00 0 sacubitril 2020-05 Yes 0 Memoria 49 MG / 0-06 Refill(s) l valsartan 19:53: E[place]th[place] 51 MG Oral 00 Tablet [Entresto] GLIMEPIRIDE 2020-05 Yes GLIMEPIRID Memoria 2MG TAB 0-06 E 2MG TAB, l 19:53: Refill(s) Easth[place] 00 0 sacubitril 2020-05 Yes 0 Memoria 49 MG / 0-06 Refill(s) l valsartan 19:53: Kasi 51 MG Oral 00 Tablet [Entresto] GLIMEPIRIDE 2020-05 Yes GLIMEPIRID Memoria 2MG TAB 0-06 E 2MG TAB, l 19:53: Refill(s) Easth[place] 00 0 sacubitril 2020-05 Yes 0 Memoria 49 MG / 0-06 Refill(s) l valsartan 19:53: [place] 51 MG Oral 00 Tablet [Entresto] GLIMEPIRIDE 2020-05 Yes GLIMEPIRID Memoria 2MG TAB 0-06 E 2MG TAB, l 19:53: Refill(s) [place]asth[place] 00 0 sacubitril 2020-05 Yes 0 Memoria 49 MG / 0-06 Refill(s) l valsartan 19:53: Kasi 51 MG Oral 00 Tablet [Entresto] GLIMEPIRIDE 2020-05 Yes GLIMEPIRID Memoria 2MG TAB 0-06 E 2MG TAB, l 19:53: Refill(s) Easth[place] 00 0 sacubitril 2020-05 Yes 0 Memoria 49 MG / 0-06 Refill(s) l valsartan 19:53: Easth[place] 51 MG Oral 00 Tablet [Entresto] GLIMEPIRIDE 2020-05 Yes GLIMEPIRID Memoria 2MG TAB 0-06 E 2MG TAB, l 19:53: Refill(s) Kasi 00 0 sacubitril 2020-05 Yes 0 Memoria 49 MG / 0-06 Refill(s) l valsartan 19:53: E[place] 51 MG Oral 00 Tablet [Entresto] GLIMEPIRIDE 2020-05 Yes GLIMEPIRID Memoria 2MG TAB 0-06 E 2MG TAB, l 19:53: Refill(s) Easth[place] 00 0 sacubitril 2020-05 Yes 0 Memoria 49 MG / 0-06 Refill(s) l valsartan 19:53: Easth[place] 51 MG Oral 00 Tablet [Entresto] Furosemide 2020-05 Yes 40 mg = 1 Me moria 40 MG Oral 0-06 tab, PO, l Tablet 19:52: Daily, # Eastham 00 30 tab, 0 Refill(s) Furosemide 2020-05 Yes 40 mg = 1 Me moria 40 MG Oral 0-06 tab, PO, l Tablet 19:52: Daily, # Kasi 00 30 tab, 0 Refill(s) Furosemide 2020-05 Yes 40 mg = 1 Me moria 40 MG Oral 0-06 tab, PO, l Tablet 19:52: Daily, # Eastham 00 30 tab, 0 Refill(s) Furosemide 2020-05 Yes 40 mg = 1 Me moria 40 MG Oral 0-06 tab, PO, l Tablet 19:52: Daily, # Kasi 30 tab, 0 Refill(s) Furosemide 2020-05 Yes 40 mg = 1 Me moria 40 MG Oral 0-06 tab, PO, l Tablet 19:52: Daily, # Kasi 30 tab, 0 Refill(s) Furosemide 2020-05 Yes 40 mg = 1 Me moria 40 MG Oral 0-06 tab, PO, l Tablet 19:52: Daily, # Kasi 30 tab, 0 Refill(s) Furosemide 2020-05 Yes 40 mg = 1 Me moria 40 MG Oral 0-06 tab, PO, l Tablet 19:52: Daily, # Kasi 30 tab, 0 Refill(s) Iron 325 Iron 325 No 1{table QD Iron 325 (65 Fe) MG (65 Fe) MG 4-28 t} (65 Fe) MG 00:00: 00 Iron 325 Iron 325 No 1{table QD Iron 325 (65 Fe) MG (65 Fe) MG 4-28 t} (65 Fe) MG 00:00: 00 Iron 325 Iron 325 No 1{table QD Iron 325 (65 Fe) MG (65 Fe) MG 4-28 t} (65 Fe) MG 00:00: 00 Iron 325 Iron 325 No 1{table QD Iron 325 (65 Fe) MG (65 Fe) MG 4-28 t} (65 Fe) MG 00:00: 00 Iron 325 Iron 325 No 1{table QD Iron 325 (65 Fe) MG (65 Fe) MG 4-28 t} (65 Fe) MG 00:00: 00 Iron 325 Iron 325 No 1{table QD Iron 325 (65 Fe) MG (65 Fe) MG 4-28 t} (65 Fe) MG 00:00: 00 Iron 325 Iron 325 No 1{table QD Iron 325 (65 Fe) MG (65 Fe) MG 4-28 t} (65 Fe) MG 00:00: 00 Iron 325 Iron 325 No 1{table QD Iron 325 (65 Fe) MG (65 Fe) MG 4-28 t} (65 Fe) MG 00:00: 00 Iron 325 Iron 325 2020-0 No 1{table QD Iron 325 (65 Fe) MG (65 Fe) MG 4-28 t} (65 Fe) MG 00:00: 00 Iron 325 Iron 325 2020-0 No 1{table QD Iron 325 (65 Fe) MG (65 Fe) MG 4-28 t} (65 Fe) MG 00:00: 00 Iron 325 Iron 325 2020-0 No 1{table QD Iron 325 (65 Fe) MG (65 Fe) MG 4-28 t} (65 Fe) MG 00:00: 00 Iron 325 Iron 325 2020-0 No 1{table QD Iron 325 (65 Fe) MG (65 Fe) MG 4-28 t} (65 Fe) MG 00:00: 00 Iron 325 Iron 325 2020-0 No 1{table QD Iron 325 (65 Fe) MG (65 Fe) MG 4-28 t} (65 Fe) MG 00:00: 00 Iron 325 Iron 325 2020-0 No 1{table QD Iron 325 (65 Fe) MG (65 Fe) MG 4-28 t} (65 Fe) MG 00:00: 00 Iron 325 Iron 325 2020-0 No 1{table QD Iron 325 (65 Fe) MG (65 Fe) MG 4-28 t} (65 Fe) MG 00:00: 00 Iron 325 Iron 325 2020-0 No 1{table QD Iron 325 (65 Fe) MG (65 Fe) MG 4-28 t} (65 Fe) MG 00:00: 00 Iron 325 Iron 325 2020-0 No 1{table QD Iron 325 (65 Fe) MG (65 Fe) MG 4-28 t} (65 Fe) MG 00:00: 00 Iron 325 Iron 325 2020-0 No 1{table QD Iron 325 (65 Fe) MG (65 Fe) MG 4-28 t} (65 Fe) MG 00:00: 00 Iron 325 Iron 325 2020-0 No 1{table QD Iron 325 (65 Fe) MG (65 Fe) MG 4-28 t} (65 Fe) MG 00:00: 00 Iron 325 Iron 325 2020-0 No 1{table QD Iron 325 (65 Fe) MG (65 Fe) MG 4-28 t} (65 Fe) MG 00:00: 00 Iron 325 Iron 325 No 1{table QD Iron 325 (65 Fe) MG (65 Fe) MG 4-28 t} (65 Fe) MG 00:00: 00 Iron 325 Iron 325 No 1{table QD Iron 325 (65 Fe) MG (65 Fe) MG 4-28 t} (65 Fe) MG 00:00: 00 Iron 325 Iron 325 No 1{table QD Iron 325 (65 Fe) MG (65 Fe) MG 4-28 t} (65 Fe) MG 00:00: 00 Iron 325 Iron 325 No 1{table QD Iron 325 (65 Fe) MG (65 Fe) MG 4-28 t} (65 Fe) MG 00:00: 00 Iron 325 Iron 325 No 1{table QD Iron 325 (65 Fe) MG (65 Fe) MG 4-28 t} (65 Fe) MG 00:00: 00 Iron 325 Iron 325 No 1{table QD Iron 325 (65 Fe) MG (65 Fe) MG 4-28 t} (65 Fe) MG 00:00: 00 Iron 325 Iron 325 No 1{table QD Iron 325 (65 Fe) MG (65 Fe) MG 4-28 t} (65 Fe) MG 00:00: 00 methocarbam methocarbam No 2 Q6H methocarba [place] [...] BLOOD [facility] GLU[facility]SE [facility] Medical FORMULARY [place] TO INSURANCE) Lancets Lancets 2018-05 Yes Kilo as Commo n 2-03 [place] directed Spirit 00:00: (dispense - [facility] [address] formulary [facility] insurance) [place] Blood Blood 2018-05 Yes Kilo as Common Glucose Glucose 2-03 Hernandez directed Spir it Test Strip Test Strip 00:00: (DISPENSE - [facility] [address] [facility]SE [facility] TEST Medical STRIPS [place] FORMULARY TO INSURANCE) Blood Blood 2018-05 No Blood Glucose Glucose 2-03 Glucose Test Strip Test Strip 00:00: Test Strip Blood Blood 2018-05 No Blood Glucose Glucose 2-03 Glucose Monitor Monitor 00:00: Monitor 00 Lancets - Lancets - 2018-05 No Lancets - 2-03 00:00: 00 Blood Blood 2018-05 No Blood Glucose Glucose 2-03 Glucose Test Strip Test Strip 00:00: Test Strip Blood Blood 2018-05 No Blood Glucose Glucose 2-03 Glucose Monitor Monitor 00:00: Monitor 00 Lancets - Lancets 2018-05 No Lancets - 2-03 00:00: 00 Blood Blood 2018-05 No Blood Glucose Glucose 2-03 Glucose Test Strip Test Strip 00:00: Test Strip Blood Blood 2018-05 No Blood Glucose Glucose 2-03 Glucose Monitor Monitor 00:00: Monitor 00 Lancets - Lancets 2018-05 No Lancets - 2-03 00:00: 00 Blood Blood 2018-05 No Blood Glucose Glucose 2-03 Glucose Test Strip Test Strip 00:00: Test Strip Blood Blood 2018-05 No Blood Glucose Glucose 2-03 Glucose Monitor Monitor 00:00: Monitor 00 Lancets - Lancets 2018-05 No Lancets - 2-03 00:00: 00 Blood Blood 2018-05 No Blood Glucose Glucose 2-03 Glucose Test Strip Test Strip 00:00: Test Strip Blood Blood 2018-05 No Blood Glucose Glucose 2-03 Glucose Monitor Monitor 00:00: Monitor 00 Lancets - Lancets 2018-05 No Lancets - 2-03 00:00: 00 Blood Blood 2018-05 No Blood Glucose Glucose 2-03 Glucose Test Strip Test Strip 00:00: Test Strip Blood Blood 2018-05 No Blood Glucose Glucose 2-03 Glucose Monitor Monitor 00:00: Monitor 00 Lancets - Lancets 2018-05 No Lancets - 2-03 00:00: 00 Blood Blood 2018-05 No Blood Glucose Glucose 2-03 Glucose Test Strip Test Strip 00:00: Test Strip Blood Blood 2018-05 No Blood Glucose Glucose 2-03 Glucose Monitor Monitor 00:00: Monitor 00 Lancets - Lancets 2018-05 No Lancets - 2-03 00:00: 00 Blood Blood 2018-05 No Blood Glucose Glucose 2-03 Glucose Test Strip Test Strip 00:00: Test Strip Blood Blood 2018-05 No Blood Glucose Glucose 2-03 Glucose Monitor Monitor 00:00: Monitor 00 Lancets - Lancets 2018-05 No Lancets - 2-03 00:00: 00 glimepiride 2019-0 Yes [id number] 2mg Take 2 mg [facility] (AMARYL) 2 9-27 by mouth Colle ge MG tablet 15:49: at of 25 bedtime. Medicin e carvedilol 2018- Yes [id number] 12.5mg Take 12.5 David (COREG) 9-27 mg by [place] 12.5 MG 15:49: mouth at of tablet 25 bedtime. Medicin e Sacubitril- 2019- Yes Take by Elton marichuy Valsartan 9-27 mouth. [place] (ENTRESTO) 15:49: of 49-51 MG 25 Medicin TABS e potassium 2018- Yes [id number] 10meq Take 10 David chloride 9-27 mEq by [place] (KLOR-CON 15:49: mouth two of 10) 10 MEQ 25 times Medicin tablet daily. e Aspirin 2018- Yes [id number] Take by Benny cordoba (ASPIR-81 9-27 mouth. [place] OR) 15:49: of 25 Medicin e metformin 2018- Yes [id number] 500mg Take 500 David (GLUCOPHAGE 9-27 mg by [place] ) 500 MG 15:49: mouth 2 of tablet 25 times Medicin daily e (with meals). furosemide 2018- Yes 40mg Take 1 Tab B aylor (LASIX) 40 7-09 by mouth Colle ge MG tablet 00:00: two times of 00 daily. Medicin e spironolact 2018- Yes 25mg Take 25 mg [facility] one 4-24 by mouth [place] (ALDACTONE) 00:00: daily. of 25 MG 00 [...] nebulize one extra every 6 hours. albuterol 2017-0 Yes 2.5mg Inhale 3 Uni vers 2.5 mg /3 3-22 mL every 4 ity of mL (0.083 00:00: (four) [place] %) 00 hours. May Medical nebulizer also Branch solution nebulize one extra every 6 hours. albuterol 2017-0 Yes 2.5mg Inhale 3 Uni vers 2.5 mg /3 3-22 mL every 4 ity of mL (0.083 00:00: (four) [place] %) 00 hours. May Medical nebulizer also Branch solution nebulize one extra every 6 hours. albuterol 2017-0 Yes 2.5mg Inhale 3 Uni vers 2.5 mg /3 3-22 mL every 4 ity of mL (0.083 00:00: ([facility] [place] %) 00 hours. May Medical nebulizer also Branch solution nebulize one extra every 6 hours. albuterol 2017-0 Yes 2.5mg Inhale 3 Uni vers 2.5 mg /3 3-22 mL every 4 ity of mL (0.083 00:00: (four) [place] %) 00 hours. May Medical nebulizer also Branch solution nebulize one extra every 6 hours. albuterol 2017-0 Yes 2.5mg Inhale 3 Uni vers 2.5 mg /3 3-22 mL every 4 ity of mL (0.083 00:00: (four) [place] %) 00 hours. May Medical nebulizer also Branch solution nebulize one extra every 6 hours. albuterol 2017-0 Yes 2.5mg Inhale 3 Uni vers 2.5 mg /3 3-22 mL every 4 ity of mL (0.083 00:00: (four) [place] %) 00 hours. May Medical nebulizer also Branch solution nebulize one extra every 6 hours. albuterol 2017-0 Yes 2.5mg Inhale 3 Uni vers 2.5 mg /3 3-22 mL every 4 ity of mL (0.083 00:00: (four) [place] %) 00 hours. May Medical nebulizer also Branch solution nebulize one extra every 6 hours. albuterol 2017-0 Yes 2.5mg Inhale 3 Uni vers 2.5 mg /3 3-22 mL every 4 ity of mL (0.083 00:00: (four) [place] %) 00 hours. May Medical nebulizer also Branch solution nebulize one extra every 6 hours. albuterol 2017-0 Yes 2.5mg Inhale 3 Uni vers 2.5 mg /3 3-22 mL every 4 ity of mL (0.083 00:00: (four) [place] %) 00 hours. May Medical nebulizer also Branch solution nebulize one extra every 6 hours. albuterol 2017-0 Yes 2.5mg Inhale 3 Uni vers 2.5 mg /3 3-22 mL every 4 ity of mL (0.083 00:00: ([facility] [place] %) 00 hours. May Medical nebulizer also Branch solution nebulize one extra every 6 hours. albuterol 2017-0 Yes 2.5mg Inhale 3 Uni vers 2.5 mg /3 3-22 mL every 4 ity of mL (0.083 00:00: ([facility] [place] %) 00 hours. May Medical nebulizer also Branch solution nebulize one extra every 6 hours. albuterol 2017-0 Yes 2.5mg Inhale 3 Uni vers 2.5 mg /3 3-22 mL every 4 ity of mL (0.083 00:00: (four) [place] %) 00 hours. May Medical nebulizer also Branch solution nebulize one extra every 6 hours. albuterol 2017-0 Yes 2.5mg Inhale 3 Uni vers 2.5 mg /3 3-22 mL every 4 ity of mL (0.083 00:00: (four) [place] %) 00 hours. May Medical nebulizer also Branch solution nebulize one extra every 6 hours. albuterol 2017-0 Yes 2.5mg Inhale 3 Uni vers 2.5 mg /3 3-22 mL every 4 ity of mL (0.083 00:00: (four) [place] %) 00 hours. May Medical nebulizer also Branch solution nebulize one extra every 6 hours. albuterol 2017-0 Yes 2.5mg Inhale 3 Uni vers 2.5 mg /3 3-22 mL every 4 ity of mL (0.083 00:00: (four) [place] %) 00 hours. May Medical nebulizer also Branch solution nebulize one extra every 6 hours. albuterol 2017-0 Yes 2.5mg Inhale 3 Uni vers 2.5 mg /3 3-22 mL every 4 ity of mL (0.083 00:00: (four) [place] %) 00 hours. May Medical nebulizer also Branch solution nebulize one extra every 6 hours. albuterol 2017-0 Yes 2.5mg Inhale 3 Uni vers 2.5 mg /3 3-22 mL every 4 ity of mL (0.083 00:00: (four) [place] %) 00 hours. May Medical nebulizer also Branch solution nebulize one extra every 6 hours. albuterol 2017-0 Yes 2.5mg Inhale 3 Uni vers 2.5 mg /3 3-22 mL every 4 ity of mL (0.083 00:00: (four) [place] %) 00 hours. May Medical nebulizer also Branch solution nebulize one extra every 6 hours. albuterol 2017-0 Yes 2.5mg Inhale 3 Uni vers 2.5 mg /3 3-22 mL every 4 ity of mL (0.083 00:00: (four) [place] %) 00 hours. May Medical nebulizer also Branch solution nebulize one extra every 6 hours. albuterol 2017-0 Yes 2.5mg Inhale 3 Uni vers 2.5 mg /3 3-22 mL every 4 ity of mL (0.083 00:00: (four) [place] %) 00 hours. May Medical nebulizer also Branch solution nebulize one extra every 6 hours. albuterol 2017-0 Yes 2.5mg Inhale 3 Uni vers 2.5 mg /3 3-22 mL every 4 ity of mL (0.083 00:00: (four) [place] %) 00 hours. May Medical nebulizer also Branch solution nebulize one extra every 6 hours. albuterol 2017-0 Yes 2.5mg Inhale 3 Uni vers 2.5 mg /3 3-22 mL every 4 ity of mL (0.083 00:00: (four) [place] %) 00 hours. May Medical nebulizer also Branch solution nebulize one extra every 6 hours. albuterol 2017-0 Yes 2.5mg Inhale 3 Uni vers 2.5 mg /3 3-22 mL every 4 ity of mL (0.083 00:00: (four) [place] %) 00 hours. May Medical nebulizer also Branch solution nebulize one extra every 6 hours. albuterol 2017-0 Yes 2.5mg Inhale 3 Uni vers 2.5 mg /3 3-22 mL every 4 ity of mL (0.083 00:00: (four) [place] %) 00 hours. May Medical nebulizer also Branch solution nebulize one extra every 6 hours. albuterol 2017-0 Yes 2.5mg Inhale 3 Uni vers 2.5 mg /3 3-22 mL every 4 ity of mL (0.083 00:00: (four) [place] %) 00 hours. May Medical nebulizer also Branch solution nebulize one extra every 6 hours. albuterol 2017-0 Yes 2.5mg Inhale 3 Uni vers 2.5 mg /3 3-22 mL every 4 ity of mL (0.083 00:00: (four) [place] %) 00 hours. May Medical nebulizer also Branch solution nebulize one extra every 6 hours. albuterol 2017-0 Yes 2.5mg Inhale 3 Uni vers 2.5 mg /3 3-22 mL every 4 ity of mL (0.083 00:00: (four) [place] %) 00 hours. May Medical nebulizer also Branch solution nebulize one extra every 6 hours. albuterol 2016-0 Yes 2.5mg Inhale 3 Uni vers 2.5 mg /3 3-22 mL every 4 ity of mL (0.083 00:00: (four) [place] %) 00 hours. May Medical nebulizer also Branch solution nebulize one extra every 6 hours. albuterol 2016-0 Yes 2.5mg Inhale 3 Uni vers 2.5 mg /3 3-22 mL every 4 ity of mL (0.083 00:00: (four) [place] %) 00 hours. May Medical nebulizer also Branch solution nebulize one extra every 6 hours. Entresto 49 Entresto 49 No Entresto [place] mg-51 mg mg-51 mg 49 mg-51 da tablet tablet mg tablet Medica l Group Klor-Con 10 Klor-Con 10 No 1{table QD Klor-Con 10 MEQ 10 MEQ t} 10 10 MEQ Glimepiride Glimepiride No Glimepirid 2 MG 2 MG e 2 MG Potassium Potassium No Potassium Chloride Chloride Chloride Arleen ER 20 Arleen ER 20 Arleen ER 20 MEQ MEQ MEQ furosemide furosemide No furosemide [place] 40 mg 40 mg 40 mg da tablet TAKE tablet TAKE tablet Medical 1 TABLET BY 1 TABLET BY TAKE 1 Group MOUTH EVERY MOUTH EVERY TABLET BY 48 HOURS 48 HOURS MOUTH EVERY 48 HOURS Coreg 6.25 Coreg 6.25 No 1{table BID Coreg 6.25 MG MG t} MG Meclizine Meclizine No 1{table TID Meclizine HCl 12.5 MG HCl 12.5 MG t_as_ne HCl 12.5 eded} MG Noel Noel No 1{table QD Noel Aspirin EC Aspirin EC t} Aspirin EC Low Dose 81 Low Dose 81 Low Dose MG MG 81 MG traMADol traMADol No traMADol HCl 50 MG HCl 50 MG HCl 50 MG Furosemide Furosemide No QD Furosemide 40 MG 40 MG 40 MG Glimepiride Glimepiride No 1{table QD Glimepirid 2 MG 2 MG t_with_ e [address]_or_t he_firs t_main_ meal_of _the_da y} glimepiride glimepiride No glimepirid [place] 2 mg tablet 2 mg tablet e 2 mg da TAKE 1 TAKE 1 tablet Medical TABLET BY TABLET BY TAKE 1 Adela up MOUTH ONCE MOUTH ONCE TABLET BY DAILY FOR DAILY FOR MOUTH ONCE 90 DAYS 90 DAYS DAILY FOR 90 DAYS Coreg 6.25 Coreg 6.25 No 1{table BID Coreg 6.25 MG MG t} MG Klor-Con 10 Klor-Con 10 No 1{table QD Klor-Con 10 MEQ 10 MEQ t} 10 10 MEQ Entresto Entresto No 1{table BID [place] 49/51mg 49/51mg t} 49/51mg 49/51mg 49/51mg 49/51mg Potassium Potassium No Potassium Chloride Chloride Chloride Arleen ER 20 Arleen ER 20 Arleen ER 20 MEQ MEQ MEQ traMADol traMADol No traMADol HCl 50 MG HCl 50 MG HCl 50 MG Furosemide Furosemide No QD Furosemide 40 MG 40 MG 40 MG metFORMIN metFORMIN No metFORMIN HCl 500 MG HCl 500 MG HCl 500 MG ipratropium ipratropium No ipratropiu [place] bromide 21 bromide 21 m bromide da mcg (0.03 mcg (0.03 21 mcg Med ical %) nasal %) nasal (0.03 %) Adela up spray USE 2 spray USE 2 nasal SPRAY(S) IN SPRAY(S) IN spray USE EACH EACH 2 SPRAY(S) NOSTRIL NOSTRIL IN EACH TWICE DAILY TWICE DAILY NOSTRIL TWICE DAILY Noel Noel No 1{table QD Noel Aspirin EC Aspirin EC t} Aspirin EC Low Dose 81 Low Dose 81 Low Dose MG MG 81 MG Meclizine Meclizine No 1{table TID Meclizine HCl 12.5 MG HCl 12.5 MG t_as_ne HCl 12.5 eded} MG Glimepiride Glimepiride No 1{table QD Glimepirid 2 MG 2 MG t_with_ e [address]_or_t he_firs t_main_ meal_of _the_da y} Entresto Entresto No 1{table BID Entrest[place] 49/51mg 49/51mg t} 49/51mg 49/51mg 49/51mg 49/51mg Coreg 6.25 Coreg 6.25 No 1{table BID Coreg 6.25 MG MG t} MG iron 65 mg iron 65 mg No iron 65 mg [place] tablet Take tablet Take tablet da by oral by oral Take by Medica l route. route. oral Group route. Jardiance Jardiance No 1{table QD Jardiance 10 MG 10 MG t} 10 MG Meclizine Meclizine No 1{table TID Meclizine HCl 12.5 MG HCl 12.5 MG t_as_ne HCl 12.5 eded} MG Potassium Potassium No Potassium Chloride Chloride Chloride Arleen ER 20 Arleen ER 20 Arleen ER 20 MEQ MEQ MEQ traMADol traMADol No traMADol HCl 50 MG HCl 50 MG HCl 50 MG Bumetanide Bumetanide No 1{table QD Bumetanide 1 MG 1 MG t} 1 MG levofloxaci levofloxaci No levofloxac [place] n 500 mg n 500 mg in 500 mg da tablet TAKE tablet TAKE tablet Medical 1 TABLET BY 1 TABLET BY TAKE 1 Group MOUTH EVERY MOUTH EVERY TABLET BY DAY FOR 7 DAY FOR 7 MOUTH DAYS DAYS EVERY DAY FOR 7 DAYS Furosemide Furosemide No QD Furosemide 40 MG 40 MG 40 MG Spironolact Spironolact No 1{table Spironolac one 25 MG one 25 MG t} tone 25 MG Noel Noel No 1{table QD Noel Aspirin EC Aspirin EC t} Aspirin EC Low Dose 81 Low Dose 81 Low Dose MG MG 81 MG metFORMIN metFORMIN No metFORMIN HCl 500 MG HCl 500 MG HCl 500 MG Klor-Con 10 Klor-Con 10 No 1{table QD [place]lor-Con 10 MEQ 10 MEQ t} 10 10 MEQ traMADol traMADol No traMADol HCl 50 MG HCl 50 MG HCl 50 MG meclizine meclizine No meclizine [place] 25 mg 25 mg 25 mg da tablet TAKE tablet TAKE tablet Medical 1 TABLET BY 1 TABLET BY TAKE 1 Group MOUTH THREE MOUTH THREE TABLET BY TIMES DAILY TIMES DAILY MOUTH THREE TIMES DAILY Jardiance Jardiance No 1{table QD Jardiance 10 MG 10 MG t} 10 MG Meclizine Meclizine No 1{table TID Meclizine HCl 12.5 MG HCl 12.5 MG t_as_ne HCl 12.5 eded} MG metFORMIN metFORMIN No metFORMIN HCl 500 MG HCl 500 MG HCl 500 MG Noel Noel No 1{table QD Noel Aspirin EC Aspirin EC t} Aspirin EC Low Dose 81 Low Dose 81 Low Dose MG MG 81 MG Potassium Potassium No Potassium Chloride Chloride Chloride Arleen ER 20 Arleen ER 20 Arleen ER 20 MEQ MEQ MEQ metformin metformin No metformin [place] 500 mg 500 mg 500 mg da tablet TAKE tablet TAKE tablet Medical 1 TABLET BY 1 TABLET BY TAKE 1 Group MOUTH TWICE MOUTH TWICE TABLET BY DAILY WITH DAILY WITH MOUTH MEALS FOR MEALS FOR TWICE 90 DAYS 90 DAYS DAILY WITH MEALS FOR 90 DAYS Entresto Entresto No 1{table BID [place] 49/51mg 49/51mg t} 49/51mg 49/51mg 49/51mg 49/51mg Carvedilol Carvedilol No Carvedilol 6.25 MG 6.25 MG 6.25 MG Spironolact Spironolact No 1{table Spironolac one 25 MG one 25 MG t} tone 25 MG Furosemide Furosemide No QD Furosemide 40 MG 40 MG 40 MG Glimepiride Glimepiride No Glimepirid 2 MG 2 MG e 2 MG omeprazole omeprazole No omeprazole [place] 40 mg 40 mg 40 mg da capsule,del capsule,del capsule,de Medical ayed ayed layed Group release release release Take 1 Take 1 Take 1 capsule capsule capsule every day every day every day by oral by oral by oral route for route for route for 30 days. 30 days. 30 days. Bumetanide Bumetanide No 1{table QD Bumetanide 1 MG 1 MG t} 1 MG Klor-Con 10 Klor-Con 10 No 1{table QD Klor-Con 10 MEQ 10 MEQ t} 10 10 MEQ Spironolact Spironolact No 1{table Spironolac one 25 MG one 25 MG t} tone 25 MG Bumetanide Bumetanide No 1{table QD Bumetanide 1 MG 1 MG t} 1 MG traMADol traMADol No traMADol HCl 50 MG HCl 50 MG HCl 50 MG Meclizine Meclizine No 1{table TID Meclizine HCl 12.5 MG HCl 12.5 MG t_as_ne HCl 12.5 eded} MG Potassium Potassium No Potassium Chloride Chloride Chloride Arleen ER 20 Arleen ER 20 Arleen ER 20 MEQ MEQ MEQ OneTouch OneTouch No OneTouch [place] Delica Plus Delica Plus Delica da Lancet 33 Lancet 33 Plus Medic al gauge gauge Lancet 33 Group gauge Furosemide Furosemide No QD Furosemide 40 MG 40 MG 40 MG Entresto Entresto No 1{table BID [place] 49/51mg 49/51mg t} 49/51mg 49/51mg 49/51mg 49/51mg Glimepiride Glimepiride No Glimepirid 2 MG 2 MG e 2 MG Klor-Con 10 Klor-Con 10 No 1{table QD Klor-Con 10 MEQ 10 MEQ t} 10 10 MEQ Carvedilol Carvedilol No Carvedilol 6.25 MG 6.25 MG 6.25 MG OneTouch OneTouch No OneTouch [place] Ultra Blue Ultra Blue Ultra Blue da Test Strip Test Strip Test Strip Medical Group Noel Noel No 1{table QD Noel Aspirin EC Aspirin EC t} Aspirin EC Low Dose 81 Low Dose 81 Low Dose MG MG 81 MG Jardiance Jardiance No 1{table QD Jardiance 10 MG 10 MG t} 10 MG metFORMIN metFORMIN No metFORMIN HCl 500 MG HCl 500 MG HCl 500 MG Entresto Entresto No 1{table BID [place] 49/51mg 49/51mg t} 49/51mg 49/51mg 49/51mg 49/51mg Bumetanide Bumetanide No 1{table QD Bumetanide 1 MG 1 MG t} 1 MG OneTouch OneTouch No OneTouch [place] Ultra2 Ultra2 Ultra2 da Meter Meter [facility] traMADol traMADol No traMADol HCl 50 MG HCl 50 MG HCl 50 MG Meclizine Meclizine No 1{table TID Meclizine HCl 12.5 MG HCl 12.5 MG t_as_ne HCl 12.5 eded} MG Potassium Potassium No Potassium Chloride Chloride Chloride Arleen ER 20 Arleen ER 20 Arleen ER 20 MEQ MEQ MEQ Noel Noel No 1{table QD Noel Aspirin EC Aspirin EC t} Aspirin EC Low Dose 81 Low Dose 81 Low Dose MG MG 81 MG Furosemide Furosemide No QD Furosemide 40 MG 40 MG 40 MG potassium potassium No potassium [place] chloride ER chloride ER chloride da 20 mEq 20 mEq ER 20 mEq Medica l tablet,exte tablet,exte tablet,ext Group nded nded ended release(par release(par release(pa t/cryst) t/cryst) rt/cryst) Take 1 Take 1 Take 1 tablet tablet tablet every day every day every day by oral by oral by oral route. route. route. Glimepiride Glimepiride No Glimepirid 2 MG 2 MG e 2 MG metFORMIN metFORMIN No metFORMIN HCl 500 MG HCl 500 MG HCl 500 MG Carvedilol Carvedilol No Carvedilol 6.25 MG 6.25 MG 6.25 MG Klor-Con 10 Klor-Con 10 No 1{table QD Klor-Con 10 MEQ 10 MEQ t} 10 10 MEQ Jardiance Jardiance No 1{table QD Jardiance 10 MG 10 MG t} 10 MG Spironolact Spironolact No 1{table Spironolac one 25 MG one 25 MG t} tone 25 MG tramadol 50 tramadol 50 No tramadol [place] mg tablet mg tablet 50 mg da TAKE 1 TAKE 1 tablet Medical TABLET BY TABLET BY TAKE 1 Adela up MOUTH EVERY MOUTH EVERY TABLET BY 8 HOURS 8 HOURS MOUTH NEEDED NEEDED EVERY 8 HOURS NEEDED Furosemide Furosemide No QD Furosemide 40 MG 40 MG 40 MG Bumetanide Bumetanide No 1{table QD Bumetanide 1 MG 1 MG t} 1 MG traMADol traMADol No traMADol HCl 50 MG HCl 50 MG HCl 50 MG Meclizine Meclizine No 1{table TID Meclizine HCl 12.5 MG HCl 12.5 MG t_as_ne HCl 12.5 eded} MG Potassium Potassium No Potassium Chloride Chloride Chloride Arleen ER 20 Arleen ER 20 Arleen ER 20 MEQ MEQ MEQ accu-chek accu-chek No accu-chek [place] guide guide guide da w/device w/device w/device Med ical kit kit kit Group Klor-Con 10 Klor-Con 10 No 1{table QD Klor-Con 10 MEQ 10 MEQ t} 10 10 MEQ Noel Noel No 1{table QD Noel Aspirin EC Aspirin EC t} Aspirin EC Low Dose 81 Low Dose 81 Low Dose MG MG 81 MG Glimepiride Glimepiride No Glimepirid 2 MG 2 MG e 2 MG Carvedilol Carvedilol No Carvedilol 6.25 MG 6.25 MG 6.25 MG Entresto Entresto No 1{table BID Entresto 49/51mg 49/51mg t} 49/51mg 49/51mg 49/51mg 49/51mg albuterol albuterol No albuterol [place] sulfate HFA sulfate HFA sulfate da 90 90 HFA 90 Medical mcg/actuati mcg/actuati mcg/actuat Group on aerosol on aerosol ion inhaler inhaler aerosol inhaler metFORMIN metFORMIN No metFORMIN HCl 500 MG HCl 500 MG HCl 500 MG Jardiance Jardiance No 1{table QD Jardiance 10 MG 10 MG t} 10 MG Spironolact Spironolact No 1{table Spironolac one 25 MG one 25 MG t} tone 25 MG Entresto Entresto No 1{table BID Ent[place] 49/51mg 49/51mg t} 49/51mg 49/51mg 49/51mg 49/51mg traMADol traMADol No traMADol HCl 50 MG HCl 50 MG HCl 50 MG Potassium Potassium No Potassium Chloride Chloride Chloride Arleen ER 20 Arleen ER 20 Arleen ER 20 MEQ MEQ MEQ aspirin 81 aspirin 81 No 1 Q1D aspirin 81 [place] mg tablet mg tablet mg tablet da Take 1 Take 1 Take 1 Medical tablet tablet tablet Group every day every day every day by oral by oral by oral route. route. route. Jardiance Jardiance No 1{table QD Jardiance 10 MG 10 MG t} 10 MG Bumetanide Bumetanide No 1{table QD Bumetanide 1 MG 1 MG t} 1 MG Noel Noel No 1{table QD Noel Aspirin EC Aspirin EC t} Aspirin EC Low Dose 81 Low Dose 81 Low Dose MG MG 81 MG Meclizine Meclizine No 1{table TID Meclizine HCl 12.5 MG HCl 12.5 MG t_as_ne HCl 12.5 eded} MG Amiodarone Amiodarone No 1{table QD Amiodarone HCl 200 MG HCl 200 MG t} HCl 200 MG Breo Breo No Breo [place] Ellipta 200 Ellipta 200 Ellipta da mcg-25 mcg-25 200 mcg-25 Medic al mcg/dose mcg/dose mcg/dose Adela up powder for powder for powder for inhalation inhalation inhalation Furosemide Furosemide No QD Furosemide 40 MG 40 MG 40 MG Carvedilol Carvedilol No Carvedilol 6.25 MG 6.25 MG 6.25 MG Spironolact Spironolact No 1{table Spironolac one 25 MG one 25 MG t} tone 25 MG metFORMIN metFORMIN No metFORMIN HCl 500 MG HCl 500 MG HCl 500 MG Klor-Con 10 Klor-Con 10 No 1{table QD Klor-Con 10 MEQ 10 MEQ t} 10 10 MEQ Glimepiride Glimepiride No Glimepirid 2 MG 2 MG e 2 MG Entresto Entresto No 1{table BID [place] 49/51mg 49/51mg t} 49/51mg 49/51mg 49/51mg 49/51mg metFORMIN metFORMIN No metFORMIN HCl 500 MG HCl 500 MG HCl 500 MG Amiodarone Amiodarone No 1{table QD Amiodarone HCl 200 MG HCl 200 MG t} HCl 200 MG Jardiance Jardiance No 1{table QD Jardiance 10 MG 10 MG t} 10 MG traMADol traMADol No traMADol HCl 50 MG HCl 50 MG HCl 50 MG Potassium Potassium No Potassium Chloride Chloride Chloride Arleen ER 20 Arleen ER 20 Arleen ER 20 MEQ MEQ MEQ Meclizine Meclizine No 1{table TID Meclizine HCl 12.5 MG HCl 12.5 MG t_as_ne HCl 12.5 eded} MG Klor-Con 10 Klor-Con 10 No 1{table QD Klor-Con 10 MEQ 10 MEQ t} 10 10 MEQ Spironolact Spironolact No 1{table Spironolac one 25 MG one 25 MG t} tone 25 MG Glimepiride Glimepiride No Glimepirid 2 MG 2 MG e 2 MG Noel Noel No 1{table QD Noel Aspirin EC Aspirin EC t} Aspirin EC Low Dose 81 Low Dose 81 Low Dose MG MG 81 MG Bumetanide Bumetanide No 1{table QD Bumetanide 1 MG 1 MG t} 1 MG Carvedilol Carvedilol No Carvedilol 6.25 MG 6.25 MG 6.25 MG Furosemide Furosemide No QD Furosemide 40 MG 40 MG 40 MG Entresto Entresto No 1{table BID [place]rest[place] 49/51mg 49/51mg t} 49/51mg 49/51mg 49/51mg 49/51mg metFORMIN metFORMIN No metFORMIN HCl 500 MG HCl 500 MG HCl 500 MG Amiodarone Amiodarone No 1{table QD Amiodarone HCl 200 MG HCl 200 MG t} HCl 200 MG Jardiance Jardiance No 1{table QD Jardiance 10 MG 10 MG t} 10 MG traMADol traMADol No traMADol HCl 50 MG HCl 50 MG HCl 50 MG Potassium Potassium No Potassium Chloride Chloride Chloride Arleen ER 20 Arleen ER 20 Arleen ER 20 MEQ MEQ MEQ Meclizine Meclizine No 1{table TID Meclizine HCl 12.5 MG HCl 12.5 MG t_as_ne HCl 12.5 eded} MG Klor-Con 10 Klor-Con 10 No 1{table QD Klor-Con 10 MEQ 10 MEQ t} 10 10 MEQ Spironolact Spironolact No 1{table Spironolac one 25 MG one 25 MG t} tone 25 MG Glimepiride Glimepiride No Glimepirid 2 MG 2 MG e 2 MG Noel Noel No 1{table QD Noel Aspirin EC Aspirin EC t} Aspirin EC Low Dose 81 Low Dose 81 Low Dose MG MG 81 MG Bumetanide Bumetanide No 1{table QD Bumetanide 1 MG 1 MG t} 1 MG Carvedilol Carvedilol No Carvedilol 6.25 MG 6.25 MG 6.25 MG Furosemide Furosemide No QD Furosemide 40 MG 40 MG 40 MG Entresto Entresto No 1{table BID [place]resto 49/51mg 49/51mg t} 49/51mg 49/51mg 49/51mg 49/51mg metFORMIN metFORMIN No metFORMIN HCl 500 MG HCl 500 MG HCl 500 MG Amiodarone Amiodarone No 1{table QD Amiodarone HCl 200 MG HCl 200 MG t} HCl 200 MG Jardiance Jardiance No 1{table QD Jardiance 10 MG 10 MG t} 10 MG traMADol traMADol No traMADol HCl 50 MG HCl 50 MG HCl 50 MG Potassium Potassium No Potassium Chloride Chloride Chloride Arleen ER 20 Arleen ER 20 Arleen ER 20 MEQ MEQ MEQ Meclizine Meclizine No 1{table TID Meclizine HCl 12.5 MG HCl 12.5 MG t_as_ne HCl 12.5 eded} MG Klor-Con 10 Klor-Con 10 No 1{table QD Klor-Con 10 MEQ 10 MEQ t} 10 10 MEQ Spironolact Spironolact No 1{table Spironolac one 25 MG one 25 MG t} tone 25 MG Glimepiride Glimepiride No Glimepirid 2 MG 2 MG e 2 MG Noel Noel No 1{table QD Noel Aspirin EC Aspirin EC t} Aspirin EC Low Dose 81 Low Dose 81 Low Dose MG MG 81 MG Bumetanide Bumetanide No 1{table QD Bumetanide 1 MG 1 MG t} 1 MG Carvedilol Carvedilol No Carvedilol 6.25 MG 6.25 MG 6.25 MG Furosemide Furosemide No QD Furosemide 40 MG 40 MG 40 MG Entresto Entresto No 1{table BID [place]rest[place] 49/51mg 49/51mg t} 49/51mg 49/51mg 49/51mg 49/51mg metFORMIN metFORMIN No metFORMIN HCl 500 MG HCl 500 MG HCl 500 MG Amiodarone Amiodarone No 1{table QD Amiodarone HCl 200 MG HCl 200 MG t} HCl 200 MG Jardiance Jardiance No 1{table QD Jardiance 10 MG 10 MG t} 10 MG traMADol traMADol No traMADol HCl 50 MG HCl 50 MG HCl 50 MG Potassium Potassium No Potassium Chloride Chloride Chloride Arleen ER 20 Arleen ER 20 Arleen ER 20 MEQ MEQ MEQ Meclizine Meclizine No 1{table TID Meclizine HCl 12.5 MG HCl 12.5 MG t_as_ne HCl 12.5 eded} MG Klor-Con 10 Klor-Con 10 No 1{table QD Klor-Con 10 MEQ 10 MEQ t} 10 10 MEQ Spironolact Spironolact No 1{table Spironolac one 25 MG one 25 MG t} tone 25 MG Glimepiride Glimepiride No Glimepirid 2 MG 2 MG e 2 MG Noel Noel No 1{table QD Noel Aspirin EC Aspirin EC t} Aspirin EC Low Dose 81 Low Dose 81 Low Dose MG MG 81 MG Bumetanide Bumetanide No 1{table QD Bumetanide 1 MG 1 MG t} 1 MG Carvedilol Carvedilol No Carvedilol 6.25 MG 6.25 MG 6.25 MG Furosemide Furosemide No QD Furosemide 40 MG 40 MG 40 MG Furosemide Furosemide No QD Furosemide 40 MG 40 MG 40 MG Noel Noel No 1{table QD Noel Aspirin EC Aspirin EC t} Aspirin EC Low Dose 81 Low Dose 81 Low Dose MG MG 81 MG Jardiance Jardiance No 1{table QD Jardiance 10 MG 10 MG t} 10 MG metFORMIN metFORMIN No metFORMIN HCl 500 MG HCl 500 MG HCl 500 MG Entresto Entresto No 1{table BID Entrest[place] 49/51mg 49/51mg t} 49/51mg 49/51mg 49/51mg 49/51mg Carvedilol Carvedilol No Carvedilol 6.25 MG 6.25 MG 6.25 MG Bumetanide Bumetanide No 1{table QD Bumetanide 1 MG 1 MG t} 1 MG Klor-Con 10 Klor-Con 10 No 1{table QD Klor-Con 10 MEQ 10 MEQ t} 10 10 MEQ Glimepiride Glimepiride No Glimepirid 2 MG 2 MG e 2 MG Spironolact Spironolact No 1{table Spironolac one 25 MG one 25 MG t} tone 25 MG Amiodarone Amiodarone No 1{table QD Amiodarone HCl 200 MG HCl 200 MG t} HCl 200 MG traMADol traMADol No traMADol HCl 50 MG HCl 50 MG HCl 50 MG Meclizine Meclizine No 1{table TID Meclizine HCl 12.5 MG HCl 12.5 MG t_as_ne HCl 12.5 eded} MG Mavyret Mavyret No 3{table QD Mavyret 100-40 MG 100-40 MG ts} 100-40 MG Potassium Potassium No Potassium Chloride Chloride Chloride Arleen ER 20 Arlene ER 20 Arleen ER 20 MEQ MEQ MEQ Furosemide Furosemide No QD Furosemide 40 MG 40 MG 40 MG Noel Noel No 1{table QD Noel Aspirin EC Aspirin EC t} Aspirin EC Low Dose 81 Low Dose 81 Low Dose MG MG 81 MG Jardiance Jardiance No 1{table QD Jardiance 10 MG 10 MG t} 10 MG metFORMIN metFORMIN No metFORMIN HCl 500 MG HCl 500 MG HCl 500 MG Entresto Entresto No 1{table BID [place] 49/51mg 49/51mg t} 49/51mg 49/51mg 49/51mg 49/51mg Carvedilol Carvedilol No Carvedilol 6.25 MG 6.25 MG 6.25 MG Bumetanide Bumetanide No 1{table QD Bumetanide 1 MG 1 MG t} 1 MG Klor-Con 10 Klor-Con 10 No 1{table QD Klor-Con 10 MEQ 10 MEQ t} 10 10 MEQ Glimepiride Glimepiride No Glimepirid 2 MG 2 MG e 2 MG Spironolact Spironolact No 1{table Spironolac one 25 MG one 25 MG t} tone 25 MG Amiodarone Amiodarone No 1{table QD Amiodarone HCl 200 MG HCl 200 MG t} HCl 200 MG traMADol traMADol No traMADol HCl 50 MG HCl 50 MG HCl 50 MG Meclizine Meclizine No 1{table TID Meclizine HCl 12.5 MG HCl 12.5 MG t_as_ne HCl 12.5 eded} MG Mavyret Mavyret No 3{table QD Mavyret 100-40 MG 100-40 MG ts} 100-40 MG Potassium Potassium No Potassium Chloride Chloride Chloride Arleen ER 20 Arleen ER 20 Arleen ER 20 MEQ MEQ MEQ Furosemide Furosemide No QD Furosemide 40 MG 40 MG 40 MG Noel Noel No 1{table QD Noel Aspirin EC Aspirin EC t} Aspirin EC Low Dose 81 Low Dose 81 Low Dose MG MG 81 MG Jardiance Jardiance No 1{table QD Jardiance 10 MG 10 MG t} 10 MG metFORMIN metFORMIN No metFORMIN HCl 500 MG HCl 500 MG HCl 500 MG Entresto Entresto No 1{table BID Entresto 49/51mg 49/51mg t} 49/51mg 49/51mg 49/51mg 49/51mg Carvedilol Carvedilol No Carvedilol 6.25 MG 6.25 MG 6.25 MG Bumetanide Bumetanide No 1{table QD Bumetanide 1 MG 1 MG t} 1 MG Klor-Con 10 Klor-Con 10 No 1{table QD Klor-Con 10 MEQ 10 MEQ t} 10 10 MEQ Glimepiride Glimepiride No Glimepirid 2 MG 2 MG e 2 MG Spironolact Spironolact No 1{table Spironolac one 25 MG one 25 MG t} tone 25 MG Amiodarone Amiodarone No 1{table QD Amiodarone HCl 200 MG HCl 200 MG t} HCl 200 MG traMADol traMADol No traMADol HCl 50 MG HCl 50 MG HCl 50 MG Meclizine Meclizine No 1{table TID Meclizine HCl 12.5 MG HCl 12.5 MG t_as_ne HCl 12.5 eded} MG Mavyret Mavyret No 3{table QD Mavyret 100-40 MG 100-40 MG ts} 100-40 MG Potassium Potassium No Potassium Chloride Chloride Chloride Arleen ER 20 Arleen ER 20 Arleen ER 20 MEQ MEQ MEQ Furosemide Furosemide No QD Furosemide 40 MG 40 MG 40 MG Noel Noel No 1{table QD Noel Aspirin EC Aspirin EC t} Aspirin EC Low Dose 81 Low Dose 81 Low Dose MG MG 81 MG Jardiance Jardiance No 1{table QD Jardiance 10 MG 10 MG t} 10 MG metFORMIN metFORMIN No metFORMIN HCl 500 MG HCl 500 MG HCl 500 MG Entresto Entresto No 1{table BID Entresto 49/51mg 49/51mg t} 49/51mg 49/51mg 49/51mg 49/51mg Carvedilol Carvedilol No Carvedilol 6.25 MG 6.25 MG 6.25 MG Bumetanide Bumetanide No 1{table QD Bumetanide 1 MG 1 MG t} 1 MG Klor-Con 10 Klor-Con 10 No 1{table QD Klor-Con 10 MEQ 10 MEQ t} 10 10 MEQ Glimepiride Glimepiride No Glimepirid 2 MG 2 MG e 2 MG Spironolact Spironolact No 1{table Spironolac one 25 MG one 25 MG t} tone 25 MG Amiodarone Amiodarone No 1{table QD Amiodarone HCl 200 MG HCl 200 MG t} HCl 200 MG traMADol traMADol No traMADol HCl 50 MG HCl 50 MG HCl 50 MG Meclizine Meclizine No 1{table TID Meclizine HCl 12.5 MG HCl 12.5 MG t_as_ne HCl 12.5 eded} MG Mavyret Mavyret No 3{table QD Mavyret 100-40 MG 100-40 MG ts} 100-40 MG Potassium Potassium No Potassium Chloride Chloride Chloride Arleen ER 20 Arleen ER 20 Arleen ER 20 MEQ MEQ MEQ Entresto Entresto No 1{table BID Entresto 49/51mg 49/51mg t} 49/51mg 49/51mg 49/51mg 49/51mg Glimepiride Glimepiride Yes Kilo 1 tablet Common [facility] Noel Noel Yes Kilo 1 tablet Common Aspirin EC Aspirin EC [facility] Sp loren Low Dose Low Dose [facility] Lisinopril Lisinopril Yes Kilo 1 tablet Common [facility] Furosemide Furosemide Yes Kilo 1 tablet Common [facility] in [facility] Coreg Coreg Yes Kilo 1 tablet Common [facility] Metformin Metformin Yes Kilo 1 tablet Common HCl HCl Hernandez with meals [facility] Entresto Entresto Yes Kilo 1 tablet C ommon 49/51mg 49/51mg [facility] metFORMIN metFORMIN No metFORMIN HCl 500 MG HCl 500 MG HCl 500 MG Amiodarone Amiodarone No 1{table QD Amiodarone HCl 200 MG HCl 200 MG t} HCl 200 MG Jardiance Jardiance No 1{table QD Jardiance 10 MG 10 MG t} 10 MG traMADol traMADol No traMADol HCl 50 MG HCl 50 MG HCl 50 MG Potassium Potassium No Potassium Chloride Chloride Chloride Arleen ER 20 Arleen ER 20 Arleen ER 20 MEQ MEQ MEQ Meclizine Meclizine No 1{table TID Meclizine HCl 12.5 MG HCl 12.5 MG t_as_ne HCl 12.5 eded} MG Klor-Con 10 Klor-Con 10 No 1{table QD Klor-Con 10 MEQ 10 MEQ t} 10 10 MEQ Spironolact Spironolact No 1{table Spironolac one 25 MG one 25 MG t} tone 25 MG Glimepiride Glimepiride No Glimepirid 2 MG 2 MG e 2 MG Noel Noel No 1{table QD Noel Aspirin EC Aspirin EC t} Aspirin EC Low Dose 81 Low Dose 81 Low Dose MG MG 81 MG Bumetanide Bumetanide No 1{table QD Bumetanide 1 MG 1 MG t} 1 MG Carvedilol Carvedilol No Carvedilol 6.25 MG 6.25 MG 6.25 MG Furosemide Furosemide No QD Furosemide 40 MG 40 MG 40 MG Entresto Entresto No 1{table BID Entresto 49/51mg 49/51mg t} 49/51mg 49/51mg 49/51mg 49/51mg metFORMIN metFORMIN No metFORMIN HCl 500 MG HCl 500 MG HCl 500 MG Amiodarone Amiodarone No 1{table QD Amiodarone HCl 200 MG HCl 200 MG t} HCl 200 MG Jardiance Jardiance No 1{table QD Jardiance 10 MG 10 MG t} 10 MG traMADol traMADol No traMADol HCl 50 MG HCl 50 MG HCl 50 MG Potassium Potassium No Potassium Chloride Chloride Chloride Arleen ER 20 Arleen ER 20 Arleen ER 20 MEQ MEQ MEQ Meclizine Meclizine No 1{table TID Meclizine HCl 12.5 MG HCl 12.5 MG t_as_ne HCl 12.5 eded} MG Klor-Con 10 Klor-Con 10 No 1{table QD Klor-Con 10 MEQ 10 MEQ t} 10 10 MEQ Spironolact Spironolact No 1{table Spironolac one 25 MG one 25 MG t} tone 25 MG Glimepiride Glimepiride No Glimepirid 2 MG 2 MG e 2 MG Noel Noel No 1{table QD Noel Aspirin EC Aspirin EC t} Aspirin EC Low Dose 81 Low Dose 81 Low Dose MG MG 81 MG Bumetanide Bumetanide No 1{table QD Bumetanide 1 MG 1 MG t} 1 MG Carvedilol Carvedilol No Carvedilol 6.25 MG 6.25 MG 6.25 MG Furosemide Furosemide No QD Furosemide 40 MG 40 MG 40 MG Meclizine Meclizine No 1{table TID Meclizine HCl 12.5 MG HCl 12.5 MG t_as_ne HCl 12.5 eded} MG Noel Noel No 1{table QD Noel Aspirin EC Aspirin EC t} Aspirin EC Low Dose 81 Low Dose 81 Low Dose MG MG 81 MG Furosemide Furosemide No QD Furosemide 40 MG 40 MG 40 MG metFORMIN metFORMIN No metFORMIN HCl 500 MG HCl 500 MG HCl 500 MG Entresto Entresto No 1{table Entresto 49/51mg 49/51mg t} 49/51mg 49/51mg 49/51mg 49/51mg Coreg 6.25 Coreg 6.25 No 1{table BID Coreg 6.25 MG MG t} MG traMADol traMADol No traMADol HCl 50 MG HCl 50 MG HCl 50 MG Glimepiride Glimepiride No 1{table QD Glimepirid 2 MG 2 MG t} e 2 MG Potassium Potassium No Potassium Chloride Chloride Chloride Arleen ER 20 Arleen ER 20 Arleen ER 20 MEQ MEQ MEQ Klor-Con 10 Klor-Con 10 No 1{table QD Klor-Con 10 MEQ 10 MEQ t} 10 10 MEQ Meclizine Meclizine No 1{table TID Meclizine HCl 12.5 MG HCl 12.5 MG t_as_ne HCl 12.5 eded} MG Noel Noel No 1{table QD Noel Aspirin EC Aspirin EC t} Aspirin EC Low Dose 81 Low Dose 81 Low Dose MG MG 81 MG Furosemide Furosemide No QD Furosemide 40 MG 40 MG 40 MG metFORMIN metFORMIN No metFORMIN HCl 500 MG HCl 500 MG HCl 500 MG Entresto Entresto No 1{table Entresto 49/51mg 49/51mg t} 49/51mg 49/51mg 49/51mg 49/51mg Coreg 6.25 Coreg 6.25 No 1{table BID Coreg 6.25 MG MG t} MG traMADol traMADol No traMADol HCl 50 MG HCl 50 MG HCl 50 MG Glimepiride Glimepiride No 1{table QD Glimepirid 2 MG 2 MG t} e 2 MG Potassium Potassium No Potassium Chloride Chloride Chloride Arleen ER 20 Arleen ER 20 Arleen ER 20 MEQ MEQ MEQ Klor-Con 10 Klor-Con 10 No 1{table QD Klor-Con 10 MEQ 10 MEQ t} 10 10 MEQ traMADol traMADol No traMADol HCl 50 MG HCl 50 MG HCl 50 MG Furosemide Furosemide No QD Furosemide 40 MG 40 MG 40 MG Potassium Potassium No Potassium Chloride Chloride Chloride Arleen ER 20 Arleen ER 20 Arleen ER 20 MEQ MEQ MEQ Entresto Entresto No 1{table Entresto 49/51mg 49/51mg t} 49/51mg 49/51mg 49/51mg 49/51mg Glimepiride Glimepiride No 1{table QD Glimepirid 2 MG 2 MG t} e 2 MG Meclizine Meclizine No 1{table TID Meclizine HCl 12.5 MG HCl 12.5 MG t_as_ne HCl 12.5 eded} MG Klor-Con 10 Klor-Con 10 No 1{table QD Klor-Con 10 MEQ 10 MEQ t} 10 10 MEQ Coreg 6.25 Coreg 6.25 No 1{table BID Coreg 6.25 MG MG t} MG metFORMIN metFORMIN No metFORMIN HCl 500 MG HCl 500 MG HCl 500 MG Noel Noel No 1{table QD Noel Aspirin EC Aspirin EC t} Aspirin EC Low Dose 81 Low Dose 81 Low Dose MG MG 81 MG traMADol traMADol No traMADol HCl 50 MG HCl 50 MG HCl 50 MG Furosemide Furosemide No QD Furosemide 40 MG 40 MG 40 MG Potassium Potassium No Potassium Chloride Chloride Chloride Arleen ER 20 Arleen ER 20 Arleen ER 20 MEQ MEQ MEQ Entresto Entresto No 1{table Entresto 49/51mg 49/51mg t} 49/51mg 49/51mg 49/51mg 49/51mg Glimepiride Glimepiride No 1{table QD Glimepirid 2 MG 2 MG t} e 2 MG Meclizine Meclizine No 1{table TID Meclizine HCl 12.5 MG HCl 12.5 MG t_as_ne HCl 12.5 eded} MG Klor-Con 10 Klor-Con 10 No 1{table QD Klor-Con 10 MEQ 10 MEQ t} 10 10 MEQ Coreg 6.25 Coreg 6.25 No 1{table BID Coreg 6.25 MG MG t} MG metFORMIN metFORMIN No metFORMIN HCl 500 MG HCl 500 MG HCl 500 MG Noel Noel No 1{table QD Noel Aspirin EC Aspirin EC t} Aspirin EC Low Dose 81 Low Dose 81 Low Dose MG MG 81 MG traMADol traMADol No traMADol HCl 50 MG HCl 50 MG HCl 50 MG Furosemide Furosemide No QD Furosemide 40 MG 40 MG 40 MG Potassium Potassium No Potassium Chloride Chloride Chloride Arleen ER 20 Arleen ER 20 Arleen ER 20 MEQ MEQ MEQ Entresto Entresto No 1{table Entresto 49/51mg 49/51mg t} 49/51mg 49/51mg 49/51mg 49/51mg Glimepiride Glimepiride No 1{table QD Glimepirid 2 MG 2 MG t} e 2 MG Meclizine Meclizine No 1{table TID Meclizine HCl 12.5 MG HCl 12.5 MG t_as_ne HCl 12.5 eded} MG Klor-Con 10 Klor-Con 10 No 1{table QD Klor-Con 10 MEQ 10 MEQ t} 10 10 MEQ Coreg 6.25 Coreg 6.25 No 1{table BID Coreg 6.25 MG MG t} MG metFORMIN metFORMIN No metFORMIN HCl 500 MG HCl 500 MG HCl 500 MG Noel Noel No 1{table QD Noel Aspirin EC Aspirin EC t} Aspirin EC Low Dose 81 Low Dose 81 Low Dose MG MG 81 MG Coreg 6.25 Coreg 6.25 No 1{table BID Coreg 6.25 MG MG t} MG Glimepiride Glimepiride No Glimepirid 2 MG 2 MG e 2 MG Entresto Entresto No 1{table Entresto 49/51mg 49/51mg t} 49/51mg 49/51mg 49/51mg 49/51mg Furosemide Furosemide No QD Furosemide 40 MG 40 MG 40 MG Noel Noel No 1{table QD Noel Aspirin EC Aspirin EC t} Aspirin EC Low Dose 81 Low Dose 81 Low Dose MG MG 81 MG traMADol traMADol No traMADol HCl 50 MG HCl 50 MG HCl 50 MG Klor-Con 10 Klor-Con 10 No 1{table QD Klor-Con 10 MEQ 10 MEQ t} 10 10 MEQ Potassium Potassium No Potassium Chloride Chloride Chloride Arleen ER 20 Arleen ER 20 Arleen ER 20 MEQ MEQ MEQ metFORMIN metFORMIN No metFORMIN HCl 500 MG HCl 500 MG HCl 500 MG Meclizine Meclizine No 1{table TID Meclizine HCl 12.5 MG HCl 12.5 MG t_as_ne HCl 12.5 eded} MG Coreg 6.25 Coreg 6.25 No 1{table BID Coreg 6.25 MG MG t} MG Glimepiride Glimepiride No Glimepirid 2 MG 2 MG e 2 MG Entresto Entresto No 1{table Entresto 49/51mg 49/51mg t} 49/51mg 49/51mg 49/51mg 49/51mg Furosemide Furosemide No QD Furosemide 40 MG 40 MG 40 MG Noel Noel No 1{table QD Noel Aspirin EC Aspirin EC t} Aspirin EC Low Dose 81 Low Dose 81 Low Dose MG MG 81 MG traMADol traMADol No traMADol HCl 50 MG HCl 50 MG HCl 50 MG Klor-Con 10 Klor-Con 10 No 1{table QD Klor-Con 10 MEQ 10 MEQ t} 10 10 MEQ Potassium Potassium No Potassium Chloride Chloride Chloride Arleen ER 20 Arleen ER 20 Arleen ER 20 MEQ MEQ MEQ metFORMIN metFORMIN No metFORMIN HCl 500 MG HCl 500 MG HCl 500 MG Meclizine Meclizine No 1{table TID Meclizine HCl 12.5 MG HCl 12.5 MG t_as_ne HCl 12.5 eded} MG Coreg 6.25 Coreg 6.25 No 1{table BID Coreg 6.25 MG MG t} MG Glimepiride Glimepiride No Glimepirid 2 MG 2 MG e 2 MG Entresto Entresto No 1{table Entresto 49/51mg 49/51mg t} 49/51mg 49/51mg 49/51mg 49/51mg Furosemide Furosemide No QD Furosemide 40 MG 40 MG 40 MG Noel Noel No 1{table QD Noel Aspirin EC Aspirin EC t} Aspirin EC Low Dose 81 Low Dose 81 Low Dose MG MG 81 MG traMADol traMADol No traMADol HCl 50 MG HCl 50 MG HCl 50 MG Klor-Con 10 Klor-Con 10 No 1{table QD Klor-Con 10 MEQ 10 MEQ t} 10 10 MEQ Potassium Potassium No Potassium Chloride Chloride Chloride Arleen ER 20 Arleen ER 20 Arleen ER 20 MEQ MEQ MEQ metFORMIN metFORMIN No metFORMIN HCl 500 MG HCl 500 MG HCl 500 MG Meclizine Meclizine No 1{table TID Meclizine HCl 12.5 MG HCl 12.5 MG t_as_ne HCl 12.5 eded} MG Furosemide Furosemide No QD Furosemide 40 MG 40 MG 40 MG Meclizine Meclizine No 1{table TID Meclizine HCl 12.5 MG HCl 12.5 MG t_as_ne HCl 12.5 eded} MG traMADol traMADol No traMADol HCl 50 MG HCl 50 MG HCl 50 MG Entresto Entresto No 1{table Entresto 49/51mg 49/51mg t} 49/51mg 49/51mg 49/51mg 49/51mg carvedilol carvedilol No carvedilol [place] 6.25 mg 6.25 mg 6.25 mg da tablet TAKE tablet TAKE tablet Medical 1 TABLET BY 1 TABLET BY TAKE 1 Group MOUTH TWICE MOUTH TWICE TABLET BY DAILY DAILY MOUTH TWICE DAILY Klor-Con 10 Klor-Con 10 No 1{table QD Klor-Con 10 MEQ 10 MEQ t} 10 10 MEQ Noel Nole No 1{table QD Noel Aspirin EC Aspirin EC t} Aspirin EC Low Dose 81 Low Dose 81 Low Dose MG MG 81 MG metFORMIN metFORMIN No metFORMIN HCl 500 MG HCl 500 MG HCl 500 MG Coreg 6.25 Coreg 6.25 No 1{table BID Coreg 6.25 MG MG t} MG clindamycin clindamycin No clindamyci [place] HCl 150 mg HCl 150 mg n HCl 150 da capsule capsule mg capsule Med ical TAKE FOUR TAKE FOUR TAKE FOUR Group CAPSULES BY CAPSULES BY CAPSULES MOUTH 30 60 MOUTH 30 60 BY MOUTH MINUTES MINUTES 30 60 PRIOR TO PRIOR TO MINUTES DENTAL DENTAL PRIOR TO APPOINTMENT APPOINTMENT DENTAL APPOINTMEN T Potassium Potassium No Potassium Chloride Chloride Chloride Arleen ER 20 Arleen ER 20 Arleen ER 20 MEQ MEQ MEQ Glimepiride Glimepiride No Glimepirid 2 MG 2 MG e 2 MG Entresto Entresto No 1{table Entresto 49/51mg 49/51mg t} 49/51mg 49/51mg 49/51mg 49/51mg metFORMIN metFORMIN No metFORMIN HCl 500 MG HCl 500 MG HCl 500 MG Klor-Con 10 Klor-Con 10 2020- No Kilo 1 tablet [facility] - [facility] Immunizations Ordered Immunization Filled Immunization Date Status Commen ts Source [facility] (Low Dose Vaccine (Low Dose 08:18:00 [facility] Booster) [facility] [address] [facility] Com[facility] Vaccine (Low Dose Vaccine (Low Dose 08:18:00 [facility] Booster) [facility] [address] [facility]-06-02 Com[facility] Vaccine (Low Dose Vaccine (Low Dose 08:18:[facility] - [facility] Booster) [facility] [address] [facility]-06-02 Com[facility]ine (Low Dose Vaccine (Low Dose 08:18:00 - [facility]) Booster) [facility] [address] [facility]-06-02 Com[facility]ine (Low Dose Vaccine (Low Dose 08:18:00 - [facility] Booster) [facility] [address] [facility] 2021-06-02 Com[facility]ine (Low Dose Vaccine (Low Dose 08:18:00 - [facility]) Booster) [facility] [address] COVID19 2021-06-02 Completed [facility] Vaccine (Low Dose Vaccine (Low Dose 08:18:00 - [facility] Booster) [facility] [address] COVID19 2021-06-02 Completed [facility] Vaccine (Low Dose Vaccine (Low Dose 08:18:00 - [facility] Booster) Booster) [facility] [address] COVID19 2021-06-02 Completed [facility] Vaccine (Low Dose Vaccine (Low Dose 08:18:00 - [facility] Booster) Booster) [facility] [address] COVID19 2021-06-02 Completed [facility] Vaccine (Low Dose Vaccine (Low Dose 08:18:00 - [facility] Booster) Booster) [facility] [address] [facility]-06-02 Com[facility] Vaccine (Low Dose Vaccine (Low Dose 08:18:00 - [facility] Booster) Booster) [facility] [address] [facility] 2021-06-02 Com[facility] Vaccine (Low Dose Vaccine (Low Dose 08:18:00 - [facility] Booster) Booster) [facility] [address] [facility] 2021-06-02 Com[facility] Vaccine (Low Dose Vaccine (Low Dose 08:18:00 - [facility] Booster) Booster) [address] [facility] 2021-06-02 Com[facility] Vaccine (Low Dose Vaccine (Low Dose 08:18:00 - [facility] Booster) Booster) [facility] [address] [facility] 2021-06-02 Completed [facility] Vaccine (Low Dose Vaccine (Low Dose 08:18:00 - [facility] Booster) Booster) [facility] [address] [facility] 2021-06-02 Completed [facility] Vaccine (Low Dose Vaccine (Low Dose 08:18:00 - [facility] Booster) Booster) [facility] [address] [facility] 2021-06-02 Com[facility] Vaccine (Low Dose Vaccine (Low Dose 08:18:00 - [facility] Booster) Booster) [facility] ERID[address] [facility] 2021-06-02 Completed [facility] Vaccine (Low Dose Vaccine (Low Dose 08:18:00 - [facility] Booster) Booster) [address] [facility] 2021-06-02 Com[facility] Vaccine (Low Dose Vaccine (Low Dose 08:18:00 - [facility] Booster) Booster) [facility]21 [facility] 14[facility]39:00 [facility] Fluzode Fluzone 2021-02-21 Completed [facility] 14:39:00 [facility] Fluzode Fluzone 2021-02-21 Completed [facility] 14:39:00 [facility] Fluzone Fluzone 2021-02-21 Completed [facility] 14:39:00 [facility] Fluzone Fluzone 2021-02-21 Completed [facility] 14:39:00 - [facility] Fluzone Fluzone 2021-02-21 Completed [facility] 14[facility]39:00 - [facility] Fluzone Fluzone 2021-02-21 Completed [facility] 14:39:00 - [facility] Fluzone Fluzone 2021-02-21 Completed [facility] 14:39:00 - [facility] Fluzone Fluzone 2021-02-21 Completed [facility] 14:39:00 - [facility] Fluzone Fluzone 2021-02-21 Completed [facility] 14:39:00 - [facility] Fluzone Fluzone 2021-02-21 Completed [facility] 14:39:00 - [facility] Fluzone Fluzone 2021-02-21 Completed [facility] 14:39:00 - [facility] Fluzone Fluzone 2021-02-21 Completed [facility] 14:39:00 - [facility] Fluzone Fluzone 2021-02-21 Completed [facility] 14:39:00 - [facility] Fluzone Fluzone 2021-02-21 Completed [facility] 14:39:00 - [facility] Fluzone Fluzone 2021-02-21 Completed [facility] 14:39:00 - [facility] Fluzone Fluzone 2021-02-21 Completed [facility] 14:39:00 - [facility] Fluzone Fluzone 2021-02-21 Completed [facility] 14:39:00 - [facility] Fluzone Fluzone 2021-02-21 Completed [facility] 14:39:00 - [facility] Fluzone Fluzone 2021-02-21 Completed [facility] 14:39:00 - [facility] Fluzone Fluzone 2021-02-21 Completed [facility] 14:39:00 - [facility] Fluzone Fluzone 2021-02-21 Completed [facility] 14:39:00 - [facility] Fluzone Fluzone 2021-02-21 Completed [facility] 14:39:00 - [facility] Fluzone Fluzone 2021-02-21 Completed [facility] 14:39:00 - [facility] Fluzone Fluzone 2021-02-21 Completed [facility] 14:39:00 - [facility] Fluzone Fluzone 2021-02-21 Completed [facility] 14:39:00 - [facility] Fluzone Fluzone 2021-02-21 Completed [facility] 14:39:00 - [facility] Moderna COVID-19 Moderna COVID-19 2020-10-03 Completed [facility] Vaccine Vaccine 14:55:00 - [facility] Moderna COVID-19 Moderna COVID-19 2020-10-03 Completed [facility] Vaccine 14:55:00 - [facility] Moderna COVID-19 Moderna COVID-19 2020-10-03 Completed [facility] Vacc[facility] 14:55:00 - [facility] Moderna COVID-19 Moderna COVID-19 2020-10-03 Completed [facility] Vaccine 14:55:00 - [facility] Moderna COVID-19 Moderna COVID-19 2020-10-03 Completed [facility] Vacc[facility] 14:55:00 - [facility] Moderna COVID-19 Moderna COVID-19 2020-10-03 Completed [facility] Vacc[facility] 14:55:00 - [facility] Moderna COVID-19 Moderna COVID-19 2020-10-03 Completed [facility] Vacc[facility] 14:55:00 - [facility] Moderna COVID-19 Moderna COVID-19 2020-10-03 Completed [facility] Vacc[facility] 14:55:00 - [facility] Moderna COVID-19 Moderna COVID-19 2020-10-03 Completed [facility] Vaccine 14:55:00 - [facility] Moderna COVID-19 Moderna COVID-19 2020-10-03 Completed [facility] Vacc[facility] 14:55:00 - [facility] Moderna COVID-19 Moderna COVID-19 2020-10-03 Completed [facility] Vaccine 14:55:00 - [facility] Moderna COVID-19 Moderna COVID-19 2020-10-03 Completed [facility] Vacc[facility] 14:55:00 - [facility] Moderna COVID-19 Moderna COVID-19 2020-10-03 Completed [facility] Vacc[facility] 14:55:00 - [facility] Moderna COVID-19 Moderna COVID-19 2020-10-03 Completed [facility]ine Vaccine 14:55:00 - [facility] Moderna COVID-19 Moderna COVID-19 2020-10-03 Completed [facility] Vaccine Vaccine 14:55:00 - [facility] Moderna COVID-19 Moderna COVID-19 2020-10-03 Completed [facility] Vaccine Vaccine 14:55:00 - [facility] Moderna COVID-19 Moderna COVID-19 2020-10-03 Completed [facility] Vaccine Vaccine 14:55:00 - [facility] Moderna COVID-19 Moderna COVID-19 2020-10-03 Completed [facility] Vacc[facility] 14:55:00 - [facility] Moderna COVID-19 Moderna COVID-19 2020-10-03 Completed [facility]ine Vaccine 14:55:00 - [facility] Moderna COVID-19 Moderna COVID-19 2020-10-03 Completed [facility]ine Vaccine 14:55:00 - [facility] Moderna COVID-19 Moderna COVID-19 2020-10-03 Completed [facility]ine Vaccine 14:55:00 - [facility] Moderna COVID-19 Moderna COVID-19 2020-10-03 Completed [facility] Vaccine 14:55:00 - [facility] Moderna COVID-19 Moderna COVID-19 2020-10-03 Completed [facility] Vacc[facility] 14:55:00 - [facility] Moderna COVID-19 Moderna COVID-19 2020-10-03 Completed [facility]ine Vaccine 14:55:00 - [facility] Moderna COVID-19 Moderna COVID-19 2020-10-03 Completed [facility] Vaccine 14:55:00 - [facility] Moderna COVID-19 Moderna COVID-19 2020-10-03 Completed [facility] Vaccine 14:55:00 - [facility] Moderna COVID-19 Moderna COVID-19 2020-10-03 Completed [facility] Vacc[facility] 14:55:00 - [facility] Moderna COVID-19 Moderna COVID-19 2020-09-05 Completed [facility] Vaccine 10:56:00 - [facility] Moderna COVID-19 Moderna COVID-19 2020-09-05 Completed [facility] Vaccine Vaccine 10:56:00 - [facility] Moderna COVID-19 Moderna COVID-19 2020-09-05 Completed [facility] Vaccine Vaccine 10:56:00 - [facility] Moderna COVID-19 Moderna COVID-19 2020-09-05 Completed [facility] Vaccine Vaccine 10:56:00 - [facility] Moderna COVID-19 Moderna COVID-19 2020-09-05 Completed [facility] Vaccine Vaccine 10:56:00 - [facility] Moderna COVID-19 Moderna COVID-19 2020-09-05 Completed [facility] Vaccine Vaccine 10:56:00 - [facility] Moderna COVID-19 Moderna COVID-19 2020-09-05 Completed [facility] Vaccine Vaccine 10:56:00 - [facility] Moderna COVID-19 Moderna COVID-19 2020-09-05 Completed [facility] Vaccine Vaccine 10:56:00 - [facility] Moderna COVID-19 Moderna COVID-19 2020-09-05 Completed [facility] Vaccine Vaccine 10:56:00 - [facility] Moderna COVID-19 Moderna COVID-19 2020-09-05 Completed [facility] Vaccine Vaccine 10:56:00 - [facility] Moderna COVID-19 Moderna COVID-19 2020-09-05 Completed [facility] Vaccine Vaccine 10:56:00 - [facility] Moderna COVID-19 Moderna COVID-19 2020-09-05 Completed [facility] Vaccine Vaccine 10:56:00 - [facility] Moderna COVID-19 Moderna COVID-19 2020-09-05 Completed [facility] Vaccine Vaccine 10:56:00 - [facility] Moderna COVID-19 Moderna COVID-19 2020-09-05 Completed [facility] Vaccine Vaccine 10:56:00 - [facility] Moderna COVID-19 Moderna COVID-19 2020-09-05 Completed [facility] Vaccine Vaccine 10:56:00 - [facility] Moderna COVID-19 Moderna COVID-19 2020-09-05 Completed [facility] Vaccine Vaccine 10:56:00 - [facility] Moderna COVID-19 Moderna COVID-19 2020-09-05 Completed [facility] Vaccine Vaccine 10:56:00 - [facility] Moderna COVID-19 Moderna COVID-19 2020-09-05 Completed [facility] Vaccine Vaccine 10:56:00 - [facility] Moderna COVID-19 Moderna COVID-19 2020-09-05 Completed [facility] Vaccine Vaccine 10:56:00 - [facility] Moderna COVID-19 Moderna COVID-19 2020-09-05 Completed [facility] Vaccine Vaccine 10:56:00 - [facility] Moderna COVID-19 Moderna COVID-19 2020-09-05 Completed [facility] Vaccine Vaccine 10:56:00 - [facility] Moderna COVID-19 Moderna COVID-19 2020-09-05 Completed [facility] Vaccine Vaccine 10:56:00 - [facility] Moderna COVID-19 Moderna COVID-19 2020-09-05 Completed [facility] Vaccine Vaccine 10:56:00 - [facility] Moderna COVID-19 Moderna COVID-19 2020-09-05 Completed [facility] Vaccine Vaccine 10:56:00 - [facility] Moderna COVID-19 Moderna COVID-19 2020-09-05 Completed [facility] Vaccine Vaccine 10:56:00 - [facility] Moderna COVID-19 Moderna COVID-19 2020-09-05 Completed [facility] Vaccine Vaccine 10:56:00 - [facility] Moderna COVID-19 Moderna COVID-19 2020-09-05 Completed [facility] Vaccine Vaccine 10:56:00 - [facility] Vital Signs Vital Name Observation Time Observation Value Comments Source Systolic blood 2022-07-08 19:02:00 95 mm[Hg] [facility] Diastolic blood 2022-07-08 19:02:00 54 [facility] 19:02:00 62 /min [facility] Body temperature 2022-07-08 19:02:00 36.33 [facility] Respiratory rate 2022-07-08 19:02:00 18 /min [facility] Body height 2022-07-08 19:02:00 154.9 cm [facility] Body weight 2022-07-08 19:02:00 115.713 kg [facility] BMI 2022-07-08 19:02:00 48.20 kg/m2 [facility] Oxygen saturation in 2022-07-08 19:02:00 99 /min [facility] Arterial blood by [facility] Pulse oximetry Branch height 2022-05-30 13:40:00 61 [in_i] [facility] weight 2022-05-30 13:40:00 249.4 [lb_av] [facility] temperature 2022-05-30 13:40:00 97.4 [degF] [facility] bmi 2022-05-30 13:40:00 47.12 kg/m2 [facility] oximetry 2022-05-30 13:40:00 96 % [facility] respiratory rate 2022-05-30 13:40:00 17 /min [facility] blood pressure 2022-05-30 13:40:00 119 mm[Hg] [facility] - systolic [facility] blood pressure 2022-05-30 13:40:00 68 mm[Hg] [facility] - diastolic [facility] height 2022-05-30 14:00:00 61 [in_i] [facility] weight 2022-05-30 14:00:00 249.4 [lb_av] [facility] temperature 2022-05-30 14:00:00 97.4 [degF] [facility] bmi 2022-05-30 14:00:00 47.12 kg/m2 [facility] oximetry 2022-05-30 14:00:00 96 % [facility] respiratory rate 2022-05-30 14:00:00 17 /min Comm on [facility] blood pressure 2022-05-30 14:00:00 119 mm[Hg] [facility] systolic [facility] blood pressure 2022-05-30 14:00:00 68 mm[Hg] [facility] diastolic [facility] Systolic blood 2022-04-10 17:14:00 109 mm[Hg] Univer sity of pressure [facility] Diastolic blood 2022-04-10 17:14:00 71 mm[Hg] Unive rsity of pressure [facility] Heart rate 2022-04-10 17:14:00 65 /min [facility] Respiratory rate 2022-04-10 17:14:00 19 /min [facility] height 2022-04-10 17:14:00 154.9 cm [facility] Body weight 2022-04-10 17:14:00 115.123 kg [facility] BMI 2022-04-10 17:14:00 47.96 kg/m2 [facility] Oxygen saturation in 2022-04-10 17:14:00 97 /min [facility] Arterial blood by [facility] Pulse oximetry Branch Systolic blood 2022-02-25 18:19:00 114 mm[Hg] Univer sity of [facility] Diastolic blood 2022-02-25 18:19:00 74 mm[Hg] Unive rsity of [facility] Heart rate 2022-02-25 18:19:00 79 /min [facility] Body temperature 2022-02-25 18:19:00 36.17 Marya [facility] Res[facility] rate 2022-02-25 18:19:00 16 /min [facility] weight 2022-02-25 18:19:00 114.443 kg [facility] BMI 2022-02-25 18:19:00 47.67 kg/m2 [facility] height 2022-01-24 11:00:00 61 [in_i] [facility] weight 2022-01-24 11:00:00 250 [lb_av] [facility] temperature 2022-01-24 11:00:00 97.3 [degF] [facility] bmi 2022-01-24 11:00:00 47.23 kg/m2 [facility] oximetry 2022-01-24 11:00:00 95 % [facility] respiratory rate 2022-01-24 11:00:00 18 /min [facility] blood pressure 2022-01-24 11:00:00 100 mm[Hg] [facility] - systolic [facility] blood pressure 2022-01-24 11:00:00 59 mm[Hg] [facility] - diastolic [facility] height 2021-12-04 10:20:00 [facility] weight 2021-12-04 10:20:00 260 [lb_av] [facility] temperature 2021-12-04 10:20:00 97.3 [degF] Common [facility] bmi 2021-12-04 10:20:00 49.12 kg/m2 Common [facility] oximetry 2021-12-04 10:20:00 96 % [facility] respiratory rate 2021-12-04 10:20:00 18 /min Comm on [facility] blood pressure 2021-12-04 10:20:00 110 mm[Hg] [facility] - systolic [facility] blood pressure 2021-12-04 10:20:00 65 mm[Hg] [facility] - diastolic [facility] height 2021-09-04 09:40:00 62.25 [in_i] Common [facility] weight 2021-09-04 09:40:00 261.4 [lb_av] [facility] temperature 2021-09-04 09:40:00 98.1 [degF] Common [facility] bmi 2021-09-04 09:40:00 47.42 kg/m2 [facility] oximetry 2021-09-04 09:40:00 100 % [facility] respiratory rate 2021-09-04 09:40:00 16 /min [facility] on [facility] blood pressure 2021-09-04 09:40:00 110 mm[Hg] [facility] - systolic [facility] blood pressure 2021-09-04 09:40:00 84 mm[Hg] [facility] - diastolic [facility] height 2021-06-05 10:00:00 62.25 [in_i] Common [facility] weight 2021-06-05 10:00:00 259 [lb_av] Common [facility] temperature 2021-06-05 10:00:00 98.1 [degF] [facility] bmi 2021-06-05 10:00:00 46.99 kg/m2 Common [facility] oximetry 2021-06-05 10:00:00 96 % [facility] respiratory rate 2021-06-05 10:00:00 18 /min [facility] on [facility] blood pressure 2021-06-05 10:00:00 96 mm[Hg] [facility] - systolic [facility] blood pressure 2021-06-05 10:00:00 50 mm[Hg] [facility] - diastolic [facility] height 2021-06-05 10:20:00 62.25 [in_i] [facility] weight 2021-06-05 10:20:00 259 [lb_av] [facility] temperature 2021-06-05 10:20:00 98.1 [degF] [facility] bmi 2021-06-05 10:20:00 46.99 kg/m2 [facility] oximetry 2021-06-05 10:20:00 96 % [facility] blood pressure 2021-06-05 10:20:00 96 mm[Hg] [facility] - systolic [facility] blood pressure 2021-06-05 10:20:00 50 mm[Hg] [facility] - diastolic [facility] height 2021-05-14 10:00:00 62.25 [in_i] [facility] weight 2021-05-14 10:00:00 269 [lb_av] Common S pirit [facility] bmi 2021-05-14 10:00:00 48.8 kg/m2 Common S pirit [facility] height 2021-03-26 10:00:00 62.25 [in_i] Common S pirit [facility] weight 2021-03-26 10:00:00 261 [lb_av] Common S pirit [facility] temperature 2021-03-26 10:00:00 97.1 [degF] [facility] S pirit [facility] bmi 2021-03-26 10:00:00 47.35 kg/m2 [facility] oximetry 2021-03-26 10:00:00 96 % [facility] respiratory rate 2021-03-26 10:00:00 16 /min [facility] blood pressure 2021-03-26 10:00:00 104 mm[Hg] [facility] - systolic [facility] blood pressure 2021-03-26 10:00:00 54 mm[Hg] [facility] - diastolic [facility] height 2021-02-26 08:40:00 62.25 [in_i] [facility] weight 2021-02-26 08:40:00 265 [lb_av] [facility] temperature 2021-02-26 08:40:00 97.2 [degF] [facility] bmi 2021-02-26 08:40:00 48.08 kg/m2 [facility] oximetry 2021-02-26 08:40:00 97 % [facility] respiratory rate 2021-02-26 08:40:00 16 /min [facility] blood pressure 2021-02-26 08:40:00 111 mm[Hg] [facility] - systolic [facility] blood pressure 2021-02-26 08:40:00 60 mm[Hg] [facility] - diastolic [facility] BP Diastolic 2020-09-14 00:00:00 68 mm[Hg] [facility] Height 2020-09-14 00:00:00 61 [in_i] [facility] BMI (Body Mass 2020-09-14 00:00:00 48 kg/m2 [facility] BP Systolic 2020-09-14 00:00:00 102 mm[Hg] [facility] Body Weight 2020-09-14 00:00:00 254.2 [lb_av] [facility] BP Diastolic 2020-05-31 00:00:00 79 mm[Hg] [facility] Height 2020-05-31 00:00:00 61 [in_i] [facility] BMI (Body Mass 2020-05-31 00:00:00 49.3 kg/m2 [facility] Medical Index) Group BP Systolic 2020-05-31 00:00:00 116 mm[Hg] [facility] Body Weight 2020-05-31 00:00:00 260.7 [lb_av] [facility] BP Diastolic 2020-03-07 00:00:00 66 mm[Hg] [facility] Height 2020-03-07 00:00:00 61 [in_i] [facility] BMI (Body Mass 2020-03-07 00:00:00 49.4 kg/m2 [facility] Medical Index) Group BP Systolic 2020-03-07 00:00:00 115 mm[Hg] [facility] Body Weight 2020-03-07 00:00:00 261.5 [lb_av] [facility] Systolic blood 2019-02-12 15:46:00 112 mm[Hg] [facility] Diastolic blood 2019-02-12 15:46:00 72 mm[Hg] [facility] pressure Medicine Heart rate 2019-02-12 15:46:00 56 /min [facility] height 2019-02-12 15:46:00 154.9 cm [facility] Body weight 2019-02-12 15:46:00 117.028 kg [facility] BMI 2019-02-12 15:46:00 48.75 kg/m2 [facility] Oxygen saturation in 2019-02-12 15:46:00 98 /min [facility] Arterial blood by Medicine Pulse oximetry Systolic blood 2019-02-12 15:46:00 112 mm[Hg] [facility] pressure Medicine Diastolic blood 2019-02-12 15:46:00 72 mm[Hg] [facility] pressure Medicine Heart rate 2019-02-12 15:46:00 56 /min [facility] Body height 2019-02-12 15:46:00 154.9 cm [facility] Body weight 2019-02-12 15:46:00 117.028 kg [facility] BMI 2019-02-12 15:46:00 48.75 kg/m2 [facility] Oxygen saturation in 2019-02-12 15:46:00 98 /min [facility] Arterial blood by Medicine Pulse oximetry Systolic (mm Hg) 2021-04-23 16:18:00 Andres rial Kasi Diastolic (mm Hg) 2021-04-23 16:18:00 Mem o[facility] Heart Rate 2021-04-23 16:18:00 [facility] Respitory Rate 2021-04-23 16:18:00 [facility] Height 2021-04-23 16:18:00 154.94 cm [facility] Weight 2021-04-23 16:18:00 [facility] BMI Calculated 2021-04-23 16:18:00 Memori al [facility] Systolic (mm Hg) 2021-03-22 18:19:00 Andres rial [place] Diastolic (mm Hg) 2021-03-22 18:19:00 Mem orial [facility] Heart Rate 2021-03-22 18:19:00 [facility] Respitory Rate 2021-03-22 18:19:00 [facility] Height 2021-03-22 18:19:00 154.94 cm [facility] Weight 2021-03-22 18:19:00 [facility] BMI Calculated 2021-03-22 18:19:00 [facility] Systolic (mm Hg) 2021-02-21 18:59:00 Andres rial Kasi Diastolic (mm Hg) 2021-02-21 18:59:00 Mem [facility] [place] Heart Rate 2021-02-21 18:59:00 [facility] Respitory Rate 2021-02-21 18:59:00 [facility] Height 2021-02-21 18:59:00 154.94 cm [facility] Weight 2021-02-21 18:59:00 [facility] BMI Calculated 2021-02-21 18:59:00 [facility]ori [facility] Procedures Procedure Date / Time Performing Clinician Source Performed SLEEP STUDY DATA REPORT 2022-07-23 06:01:00 Doctor Unassigned, [facility] [place] [facility] ASSIGNMENT OF BENEFITS 2022-07-08 18:55:01 Doctor Unassigned, Un [facility] [place] [facility] PULMONARY FUNCTION REPORT 2022-05-24 06:01:00 Doctor Unassigned, [facility] [place] [facility] EXTERNAL PROVIDER - ADC 2022-03-05 05:01:00 Doctor Unassigned, U [facility] REFERRAL [place] [facility] ASSIGNMENT OF BENEFITS 2022-01-10 15:14:06 Doctor Unassigned, [facility] [place] [facility] MAGNESIUM 2021-11-28 15:33:00 Araceli, [facility] BASIC METABOLIC PANEL (NA, 2021-11-28 15:33:00 Miley houston, [facility] K, CL, CO2, GLUCOSE, BUN, [facility] CREATININE, [place]) N-TERMINAL PRO-BNP 2021-11-28 15:33:00 [facility] [place] ELECTROCARDIO[facility] COMPLETE 2019-02-12 16:12:00 Tom Littlejohn [facility] Automatic Defibrillator [facility] Defibrillation using [facility] automated external cardiac defibrillator Plan of Care Planned Activity Planned Date Details Comments Source Future Scheduled BASIC METABOLIC PANEL Ordered: [facility] Test [code = 36649-5] 02/12/2019 of [facility] Future Scheduled LIPID PANEL [code = Ordered: [facility] Test 35378-9] 02/12/2019 of [facility] Future Scheduled LIPOPROTEIN A (LPA) [code Ordered: [facility] Test = 65929-1] 02/12/2019 [facility] Future Scheduled ELECTROCARDIOGRAM [facility] Test COMPLETE [code = 25520] of M edicine Future Scheduled COLON CANCER SCREENING: [facility] Test COLONOSCOPY [code = COLON of Medicine CANCER SCREENING: COLONOSCOPY] Future Scheduled MAMMOGRAM ANNUAL [code = [facility] Test MAMMOGRAM ANNUAL] of Medicin e Future Scheduled MEDICARE AWV [code = [facility] Test MEDICARE AWV] of Medicine Future Scheduled TETANUS SHOT (ADULT) [facility] Test [code = TETANUS SHOT of Medi cine (ADULT)] Future Scheduled Diabetic foot examination [facility] Test (regime/therapy) [code = of Medicine 696478432] Future Scheduled ANNUAL DIABETIC [facility] RETINOPATHY SCREENING of Med icine [code = ANNUAL DIABETIC RETINOPATHY SCREENING] Future Scheduled BMI FOLLOW UP PLAN [code [facility] Test = BMI FOLLOW UP PLAN] of Med icine Future Scheduled HEPATITIS C SCREENING [facility] Test [code = HEPATITIS C of Medic ine SCREENING] Future Scheduled HIV SCREENING [code = HIV [facility] Test SCREENING] of Medicine Future Scheduled CERVICAL CANCER SCREENING [facility] Test 3 YEAR FOLLOW UP [code = of Medicine CERVICAL CANCER SCREENING 3 YEAR FOLLOW UP] Future Scheduled FLU VACCINE > 6 MONTHS [facility] Test [code = FLU VACCINE > 6 of M edicine MONTHS] Encounters Start End Encounter Admission Attending Care Care Encounter Source Date/Time Date/Time Type Type Clinicians Facility Department ID 2022-06-18 Outpatient Laury, STARLENLC STLMLC [id number] Common 12:01:00 Aissatou 63099 [facility] 2022-05-28 Outpatient Beadle, STARLENLC STLMLC [id number] Common 08:32:00 Aissatou 49913 [facility] 2021-11-30 Outpatient Beadle, STLMLC STLMLC [id number] Common 07:54:00 Aissatou [facility] 2021-09-05 Outpatient Beadle, STLMLC STLMLC [id number] Common 10:56:01 Aissatou [facility] 2021-06-13 Outpatient Beadle, STARLENLC STLMLC [id number] Common 14:38:32 Aissatou [facility] 2021-06-13 Outpatient Beadle, STLMLC STLMLC [id number] Common 14:35:38 Aissatou [facility] 2021-06-13 Outpatient Beadle, STLMLC STLMLC [id number] Common 14:01:32 Aissatou 34014 [facility] 2021-06-13 Outpatient Beadle, STLMLC STLMLC [id number] Common 13:44:49 Aissatou 59720 [facility] 2021-06-13 Outpatient Beadle, STLMLC STLMLC [id number] Common 13:27:14 Aissatou 79432 [facility] 2021-06-13 Outpatient Laury, STLMLC [facility] [id number] Common 12:57:09 Aissatou 78879 [facility] 2021-06-13 Outpatient Laury, STLMLC STLC [id number] Common 12:25:50 Aissatou 04564 [facility] 2021-06-13 Outpatient Lyn, STLMLC [facility] [id number] Common 11:42:20 Aleah 41078 [facility] 2021-06-13 Outpatient Lyn, STLMLC [facility] [id number] Common 11:39:36 Aleah 96767 [facility] 2021-06-13 Outpatient Lyn, STLMLC [facility] [id number] Common 11:24:42 Aleah 65413 [facility] 2021-06-13 Outpatient Lyn, STLMLC [facility] [id number] Common 11:08:27 Aleah 73966 [facility] 2022-08-07 2022-08-07 Outpatient R SIGIFREDO RAMIREZ [facility] [id number] Univers 09:30:00 09:30:00 SIGIFREDO RAMIREZ [facility] 2022-07-23 2022-07-23 Transplant Nurse 1, [facility] Sleep Lab Bed [facility] 1. 2.840.114 [id number] Univers 20:00:00 22:30:00 Visit Sigifredo Ramirez 350.1.13. 10 ity [facility] 4.2.7.2.686 [facility] [id number] [address] 2022-07-23 2022-07-23 Outpatient R SIGIFREDO RAMIREZ [facility] [id number] Univers 20:00:00 20:00:00 SIGIFREDO RAMIREZ [facility] 2022-07-23 2022-07-23 Orders Doctor DEL TORO 1.2.840.114 [id number] Univers 00:00:00 00:00:00 Only Unassigned, BROOK 350.1.13.10 ity of [place] [facility] 4.2.7.2.686 Arnulfo as [id number] [facility] 009 Branch 2022-07-15 2022-07-15 Telephone Kaela CHILDERS 1.2.840.114 [id number] Univers 00:00:00 00:00:00 [place], PEDIATRIC 350.1.13.10 [place] [id number] [facility] PRIMARY [facility] Branch CARE CLINIC 2022-07-09 2022-07-09 Letter Feliberto, [facility] 1.2.840.114 [id number] Univers 00:00:00 00:00:00 (Out) General HEALTH 350.1.13.10 it y of Cardiology CLEAR 4.2.7.2.686 [phone] [address] OFFICE BUILDING 2022-07-08 2022-07-08 Office Kaela CHILDERS 1.2.840.114 [id number] Univers 13:00:00 13:30:00 Visit [place], PEDIATRIC 350.1.13.10 [place]y [place] [id number] [facility] PRIMARY [facility] Branch CARE CLINIC 2022-07-08 2022-07-08 Outpatient [facility] [id number] Univers 13:00:00 13:00:00 COLTON, ity of [facility] 2022-07-08 2022-07-08 Orders Doctor DEL TORO 1.2.840.114 [id number] Univers 00:00:00 00:00:00 Only Unassigned, BROOK 350.1.13.10 ity of [place] [facility] 4.2.7.2.686 [place]fo as [id number] [place] [address] Branch 2022-07-08 2022-07-08 Telephone [employer] OMAR 1.2.840.11 [id number] Univers 00:00:00 00:00:00 [place] Y HEALTH 350.1.13.10 ity of [place] CL[place] [id number] [place] [address] Branch 2022-06-06 2022-06-06 (TEL) STLMLC STLMLC [id number] Co mmon 00:00:00 00:00:00 [facility] - [facility] 2022-06-05 2022-06-05 (TEL) STLMLC STLMLC [id number] Co mmon 00:00:00 00:00:00 [facility] 2022-05-30 2022-05-30 OFFICE STLMLC STLMLC [id number] Co mmon 00:00:00 00:00:00 VISIT [facility] ESTAB PT - CH[facility] LEVEL 4 [facility] 2022-05-30 2022-05-30 SUB ANNUAL STLMLC STLMLC [id number] Common 00:00:00 00:00:00 MCR [facility] WELLNESS - CHI VISIT [facility] 2022-05-30 2022-05-30 Telephone Iturrizaga- UNIVERSIT 1.2.840.11 [id number] Univers 00:00:00 00:00:00 [place] Y HEALTH 350.1.13.10 ity [place] CL[place] [id number] [facility] 414 Branch 2022-05-30 2022-05-30 Refill Iturrizaga- UNIVERSIT 1.2.840.114 [id number] Univers 00:00:00 00:00:00 [place] Y HEALTH 350.1.13.10 ity of [place] CL[place] [id number] [facility] 414 Branch 2022-05-29 2022-05-29 [facility] 1.2.840.114 [id number] Univers 00:00:00 00:00:00 [place] PEDIATRIC 350.1.13.10 it[place] [id number] [facility] PRIMARY 059 Branch CARE CLINIC 2022-05-24 2022-05-24 Transplant Nurse Testing, [facility] Pulmonary Func tion UNIVERSIT 1.2.840.114 [id number] Univers 09:30:00 11:31:11 Visit Miguel Ford Y HEALTH 350.1.13. 10 ity of CL[place]ICS [place] [id number] [facility] 083 Branch 2022-05-24 2022-05-24 Outpatient R LILIANA [facility] [id number] Univers 09:30:00 09:30:00 MIGUEL ity [facility] 2022-05-24 2022-05-24 Orders Doctor ALVERTO 1.2.840.114 [id number] Univers 00:00:00 00:00:00 Only Unassigned, BROOK 350.1.13.10 ity [facility] 4.2.7.2.686 [place] as [id number] [facility] 009 Branch 2022-04-26 2022-04-26 Outpatient [facility] [id number] Univers 09:30:00 09:30:00 COLTON derek [facility] 2022-04-10 2022-04-10 Office James [facility] 1.2.059.887 [id number] Univers 11:00:00 11:30:00 Visit Sigifredo SANTANA 350.1.13.10 ity [facility] [place] PROFESS[place] [id number] [address] 2022-04-10 2022-04-10 Outpatient R SIGIFREDO RAMIREZ [facility] [id number] Univers 11:00:00 11:00:00 SIGIFREDO RAMIREZ [facility] 2022-04-03 2022-04-03 Outpatient [facility] [id number] Univers 08:17:34 23:59:00 jacy SEGURA [facility] 2022-03-21 2022-03-21 [facility] 1.2.840.11 [id number] Univers 00:00:00 00:00:00 [place] ARACELIS 350.1.13.10 ity [facility] [place] [id number] [facility] [address] [place] 2022-03-19 2022-03-19 Outpatient [facility] [id number] Univers 09:00:00 23:59:00 COLTONjacy ROMEO [facility] 2022-03-06 2022-03-06 Outpatient R NENA RAMIREZNMRadha [facility] [id number] Univers 14:00:00 14:00:00 SIGIFREDO RAMIREZ ity [facility] 2022-03-05 2022-03-05 Orders Doctor DEL TORO 1.2.840.114 [id number] Univers 00:00:00 00:00:00 Only Unassigned, BROOK 350.1.13.10 ity of [facility] 4.2.7.2.686 [place] as [id number] [address] 2022-03-04 2022-03-04 (TEL) STLMLC STLMLC [id number] Co mmon 00:00:00 00:00:00 [facility] 2022-03-04 2022-03-04 (TEL) STLMLC STLMLC [id number] Co mmon 00:00:00 00:00:00 [facility] 2022-02-25 2022-02-25 Outpatient [facility] [id number] Univers 13:30:00 13:53:55 COLTONjacy ROMEO [facility] 2022-02-25 2022-02-25 Office Rodrigo- [place] 1.2.840.114 [id number] Univers 13:30:00 13:53:55 Visit [place], PEDIATRIC 350.1.13.10 [place] [id number] [address] 2022-02-25 2022-02-25 Telephone Iturradrian- [place] 1.2.840.114 [id number] Univers 00:00:00 00:00:00 [place], PEDIATRIC 350.1.13.10 [place] [id number] [place] [address] Branch [facility] 2022-02-13 2022-02-13 (TEL) STLC STLC [id number] Co mmon 00:00:00 00:00:00 [facility] 2022-02-06 2022-02-06 (TEL) STLMLC STLMLC [id number] Co mmon 00:00:00 00:00:00 [facility] 2022-01-24 2022-01-24 OFFICE STLMLC STLMLC [id number] Co mmon 00:00:00 00:00:00 VISIT [facility] 4 [facility] 2022-01-23 2022-01-23 (TEL) STLMLC STLMLC [id number] Co mmon 00:00:00 00:00:00 [facility] 2022-01-11 2022-01-11 (TEL) STLMLC STLMLC [id number] Co mmon 00:00:00 00:00:00 [facility] 2022-01-10 2022-01-10 Outpatient R RADIOLOGY [facility] [id number] Univers 10:15:43 23:59:00 ity of [facility] 2022-01-10 2022-01-10 Hospital Radiology [facility] 1.2.840.114 [id number] Univers 10:15:43 23:59:00 Encounter MAX 350.1.13.10 ity of [place] [id number] [facility] 800 Branch 2022-01-10 2022-01-10 Transplant Nurse Arlette, [facility] [facility] 1.2.8 40.114 [id number] Univers 11:15:00 11:30:00 Visit Milo Bennett 350.1.13.10 ity of [place] [phone] [place] dical [facility] [address] BUILDING 2022-01-10 2022-01-10 Orders Doctor ALVERTO 1.2.840.114 [id number] Univers 00:00:00 00:00:00 Only Unassigned, BROOK 350.1.13.10 ity of [place] [facility] 4.2.7.2.686 Arnulfo as [phone] [facility] [address] 2022-01-01 2022-01-01 Telephone [facility] 1.2.840.114 [id number] Univers 00:00:00 00:00:00 ARACELIS Segura 350.1.13.10 ity of [place] JULIAN [phone] [facility] [address] OFFICE BUILDING 2021-12-19 2021-12-19 Outpatient R RADIOLOGY [facility] RAD [id number] Univers 10:20:00 10:20:00 ity of [facility] 2021-12-04 2021-12-04 [facility] [id number] Co mmon 00:00:00 00:00:00 VISIT Spirit ESTAB PT - CHI LEVEL 4 [facility] 2021-12-04 2021-12-04 Telephone [facility] STEFANIA 1.2.840.11 [id number] Univers 00:00:00 00:00:00 [place] HEALTH 350.1.13.10 ity of [place] CLINICS [place] [id number] [address] 2021-11-28 2021-11-28 Transplant Nurse Arlette, Lena Lab Main [facility] 1.2.8 40.114 [id number] Univers 10:00:00 10:15:00 Visit [place] 3 50.1.13.10 ity of [place] [phone] [place] dical [facility] [address] BUILDING 2021-11-28 2021-11-28 Outpatient R [facility] [id number] Univers 10:00:00 10:00:00 COLTON, ity of [place] [facility] 2021-11-27 2021-11-27 Telephone Kaela CHILDERS 1.2.840.114 [id number] Univers 00:00:00 00:00:00 [place] PEDIATRIC 350.1.13.10 ity of [place] ADULT [phone] [facility] PRIMARY [address] CARE CLINIC 2021-10-31 2021-10-31 (TEL) [facility] [id number] Co mmon 00:00:00 00:00:00 Spirit - CHI [facility] 2021-10-19 2021-10-19 Outpatient R JEANNE [facility] [id number] Univers 11:00:00 11:00:00 MIREYA ity [facility] 2021-10-18 2021-10-18 Telephone [employer] ALVARADO 1.2.840.114 [id number] Univers 00:00:00 00:00:00 [place], PEDIATRIC 350.1.13.10 ity of [place] [id number] [address] 2021-10-18 2021-10-18 Telephone [employer] [place] 1.2.840.114 [id number] Univers 00:00:00 00:00:00 [place], PEDIATRIC 350.1.13.10 ity of [place] [phone] [address] 2021-09-04 2021-09-04 Outpatient R ABEBA [facility] [id number] Univers 14:00:00 17:37:46 [facility] 2021-09-04 2021-09-04 Office [facility] 1.2.840.114 [id number] Univers 14:00:00 17:37:46 Visit Fe SPECIALTY 350.1.13.10 ity of C[place].2.[place] CENTER AT [phone] [place] stephanie CEDAR KEYDerek [address] [place] [address] 2021-09-04 2021-09-04 OFFICE [facility] [id number] Co mmon 00:00:00 00:00:00 VISIT Elieser ESTAB PT - CHI LEVEL 4 [facility] 2021-09-04 2021-09-04 Orders Doctor DEL TORO 1.2.840.114 [id number] Univers 00:00:00 00:00:00 Only Unassigned, BROOK 350.1.13.10 ity of [place] [facility]PITAL 4.2.7.2.686 Arnulfo as [phone] [place] [address] Branch 2021-09-03 2021-09-03 Telephone Kaela CHILDERS 1.2.840.114 [id number] Univers 00:00:00 00:00:00 [place], PEDIATRIC 350.1.13.10 ity of [place] [id number] [address] 2021-08-31 2021-08-31 [facility] 1.2.840.114 [id number] Univers 00:00:00 00:00:00 [place], HEALTH 350.1.13.10 ity of [place] JULIAN [id number] [address] OFFICE BUILDING 2021-08-29 2021-08-29 Outpatient R SARAI [facility] [id number] Univers 09:00:00 10:28:37 MANDI [facility] 2021-08-29 2021-08-29 Nurse Nurse, Alexander CHILDERS 1.2.84 0.114 [id number] Univers 09:00:00 09:20:00 Visit Unknown, Attending PEDIATRIC 350.1.13. 10 it[place] of [place] [phone] [address] 2021-08-29 2021-08-29 Outpatient R DANYELLE, [facility] [id number] Univers 09:00:00 09:00:00 ATTENDING itderek [facility] 2021-08-24 2021-08-24 Outpatient [facility] [id number] Univers 16:30:00 16:50:59 [place] itderek [facility] 2021-08-24 2021-08-24 Office Kaela CHILDERS 1.2.840.114 [id number] Univers 16:30:00 16:50:59 Visit [place], PEDIATRIC 350.1.13.10 it[place] of [place] [phone] [address] 2021-07-30 2021-07-30 (TEL) STLMLC STLMLC [id number] Co mmon 00:00:00 00:00:00 [facility] 2021-07-24 2021-07-24 Ambulatory nullFlavo MNA [id number] Memoria 16:30:00 16:30:00 Pre-Reg r Neurology 05 l [place] Kasi 2021-07-24 2021-07-24 Ambulatory nullFlavo MNA [id number] Memoria 16:30:00 16:30:00 Pre-Reg r Neurology 05 l [place] 2021-07-24 2021-07-24 Outpatient MHIE MHIE [id number] Memoria 10:30:00 10:30:00 05 l [place] 2021-07-24 2021-07-24 Outpatient Daisy MISCHER MISCHER [id number] 10:30:00 10:30:00 Regulo Garcia 2021-07-12 2021-07-12 [facility] 1.2.328.237 [id number] Univers 00:00:00 00:00:00 Joel SANTANA 350.1.13.10 ity of [place] [phone] Nc dic[address] 2021-07-06 2021-07-06 [facility] 1.2.594.247 [id number] Univers 00:00:00 00:00:00 Joel SANTANA 350.1.13.10 [facility] 4.2.7.2.[place] [phone] [place] dichi NAL [address] [place] [address] 2021-07-05 2021-07-05 [facility] [id number] Univers 08:54:58 23:59:00 SENDIL jcay of [facility] 2021-07-05 2021-07-[address]840.114 [id number] Univers 08:54:58 23:59:00 Encounter Joel SANTANA 350.1.13.10 ity of [place] [phone] [place] dichi NAL 8[address] [employer] 2021-07-05 2021-07-05 Outpatient [facility] [id number] Univers 09:00:00 09:00:00 SENDIL ity [facility] 2021-06-25 2021-06-25 Telephone Yue [facility] 1.2.586.550 [id number] Univers 00:00:00 00:00:00 Sendil Suellen SANTANA 350.1.13.10 ity of [place] [phone] [facility] 059 [employer] 2021-06-19 2021-06-19 Office [facility] 1.2.840.114 [id number] Univers 14:00:00 14:49:22 Visit Senddaron SANTANA 350.1.13.10 ity [facility] 4.2.7.2.[place] [phone] [address] 2021-06-19 2021-06-19 Outpatient [facility] [id number] Univers 14:00:00 14:49:22 SENDIL ity [facility] 2021-06-19 2021-06-19 Outpatient [facility] [id number] Univers 14:00:00 14:49:22 SENDIL ity [facility] 2021-06-19 2021-06-19 Orders Doctor DEL TORO 1.2.840.114 [id number] Univers 00:00:00 00:00:00 Only Unassigned, BROOK 350.1.13.10 ity of [place] [facility] 4.2.7.2.686 Arnulfo as [id number] [address] 2021-06-05 2021-06-05 OFFICE [facility] [id number] Co mmon 00:00:00 00:00:00 VISIT Elieser COPE PT - CHI LEVEL 4 [facility] 2021-06-05 2021-06-05 SUB ANNUAL [facility] [id number] Common 00:00:00 00:00:00 MCR Spirit WELLNESS - CHI VISIT [facility] 2021-05-15 2021-05-15 Outpatient R [facility] [id number] Univers 17:00:00 17:00:00 ity [facility] 2021-05-14 2021-05-14 (TEL) STLMLC STLMLC [id number] Co mmon 00:00:00 00:00:00 Spirit - CHI [facility] 2021-05-14 2021-05-14 OFFICE STLMLC STLMLC [id number] Co mmon 00:00:00 00:00:00 VISIT EST Spir it PT LEVEL 3 - CHI [facility] 2021-05-14 2021-05-14 (TEL) STLMLC STLMLC [id number] Co mmon 00:00:00 00:00:00 [facility] 2021-04-23 2021-04-24 Outpatient nullFlavo MNA [id number] Memoria 16:00:00 05:59:59 r Neurology 04 l Isael Villaseñor 2021-04-23 2021-04-24 Outpatient nullFlavo MNA [id number] Memoria 16:00:00 05:59:59 r Neurology 04 l Isael Villaseñor 2021-04-23 2021-04-23 Outpatient JEANNIE Villa MHMISCHER [id number] 10:00:00 23:59:59 Regulo Garland Jose 2021-04-23 2021-04-23 Outpatient MHIE MHIE [id number] Memoria 10:00:00 10:00:00 04 radha Villaseñor 2021-03-30 2021-03-30 (TEL) STLMLC STLMLC [id number] Co mmon 00:00:00 00:00:00 Spirit [facility] 2021-03-26 2021-03-26 OFFICE STLMLC STLMLC [id number] Co mmon 00:00:00 00:00:00 VISIT Spirit ESTAB PT - CHI LEVEL 4 [facility] 2021-03-22 2021-03-23 Outpatient nullFlavo MNA [id number] Memoria 18:00:00 04:59:59 r Neurology 03 l Isael Villaseñor 2021-03-22 2021-03-23 Outpatient nullFlavo MNA [id number] Memoria 18:00:00 04:59:59 r Neurology 03 radha Villaseñor 2021-03-22 2021-03-22 Outpatient JEANNIE VillaSCHER [id number] 13:00:00 23:59:59 Regulo 03 Jose 2021-03-22 2021-03-22 Outpatient MHIE MHIE [id number] Memoria 13:00:00 13:00:00 03 radha Villaseñor 2021-03-21 2021-03-21 Ambulatory nullFlavo MNA [id number] Memoria 19:15:00 19:15:00 Pre-Reg r Neurology 02 radha Villaseñor 2021-03-21 2021-03-21 Ambulatory nullFlavo MNA [id number] Memoria 19:15:00 19:15:00 Pre-Reg r Neurology 02 radha Villaseñor 2021-03-21 2021-03-21 Ambulatory nullFlavo MNA [id number] Memoria 15:30:00 15:30:00 Pre-Reg r Neurology 01 radha Villaseñor 2021-03-21 2021-03-21 Ambulatory nullFlavo MNA [id number] Memoria 15:30:00 15:30:00 Pre-Reg r Neurology 01 radha Villaseñor 2021-03-21 2021-03-21 Outpatient MHIE MHIE [id number] Memoria 14:15:00 14:15:00 02 radha Villaseñor 2021-03-21 2021-03-21 Outpatient JEANNIE VillaSCHALANA [id number] 14:15:00 14:15:00 Regulo 02 Jose 2021-03-21 2021-03-21 Outpatient MHIE MHIE [id number] Memoria 10:30:00 10:30:00 radha Villaseñor 2021-03-21 2021-03-21 Outpatient JEANNIE VillaSCHALANA [id number] 10:30:00 10:30:00 Regulo Jose 2021-03-13 2021-03-13 (TEL) STLMLC STLMLC [id number] Co mmon 00:00:00 00:00:00 [facility] 2021-03-07 2021-03-07 (TEL) STLMLC STLMLC [id number] Co mmon 00:00:00 00:00:00 [facility] 2021-02-26 2021-02-26 OFFICE STLMLC STLMLC [id number] Co mmon 00:00:00 00:00:00 VISIT [facility] LEVEL 4 [facility] 2021-02-21 2021-02-22 Outpatient nullFlavo MNA [id number] Memoria 18:15:00 04:59:59 r Neurology 00 l Isael Moranann 2021-02-21 2021-02-22 Outpatient nullFlavo MNA [id number] Memoria 18:15:00 04:59:59 r Neurology 00 l [place] 2021-02-21 2021-02-21 Outpatient ARIANNE VillaMISCHER MHMISCHER [id number] 13:15:00 23:59:59 Regulo 00 Jose 2021-02-21 2021-02-21 Outpatient MHIE ARIANNEIE [id number] Memoria 13:15:00 13:15:00 00 l Kasi 2021-01-18 2021-01-18 Outpatient STLMLC STLMLC [id number] Common 00:00:00 00:00:00 [facility] 2020-12-20 2020-12-20 Outpatient STLMLC STLMLC [id number] Common 00:00:00 00:00:00 [facility] 2020-12-01 2020-12-01 Outpatient STLMLC STLMLC [id number] Common 00:00:00 00:00:00 [facility] 2020-11-30 2020-11-30 Outpatient STLMLC STLMLC [id number] Common 00:00:00 00:00:00 [facility] 2020-11-21 2020-11-21 Outpatient STLMLC STLMLC [id number] Common 00:00:00 00:00:00 [facility] 2020-10-18 2020-10-18 Outpatient STLMLC STLMLC [id number] Common 00:00:00 00:00:00 [facility] 2020-10-06 2020-10-06 Outpatient STLMLC STLMLC [id number] Common 00:00:00 00:00:00 [facility] 2020-09-25 2020-09-25 Outpatient STLMLC STLMLC [id number] Common 00:00:00 00:00:00 [facility] 2020-09-15 2020-09-15 Outpatient Yan_W MMG MMG [id number] [place] 07:15:00 07:15:00 [address] [facility] 2020-09-14 2020-09-14 Outpatient Yan_W MMG MMG [id number] [place] 03:44:00 03:44:00 0429 [facility] 2020-09-14 2020-09-14 Outpatient Yan_W MMG MMG [id number] [place] 03:44:00 03:44:00 0430 [facility] 2020-09-14 2020-09-14 SHUN Garcia [place] - [id number] [place] 00:00:00 00:00:00 : Ck [facility] [address], [facility], [place]ol [place] [facility] [address] , Ph. 2020-09-13 2020-09-13 Outpatient STLMLC STLMLC [id number] Common 00:00:00 00:00:00 [facility] 2020-09-13 2020-09-13 Outpatient STLMLC STLMLC [id number] Common 00:00:00 00:00:00 [facility] 2020-09-08 2020-09-08 Outpatient Yan_W MMG MMG [id number] [place] 02:57:00 02:57:00 0423 [facility] 2020-09-05 2020-09-05 Outpatient STLMLC STLMLC [id number] Common 00:00:00 00:00:00 [facility] 2020-06-01 2020-06-01 Outpatient Yan_W MMG MMG [id number] [place] 09:10:00 09:10:00 0203 [facility] 2020-05-31 2020-05-31 Outpatient Yan_W MMG MMG [id number] [place] 09:49:00 09:49:00 0113 [facility] 2020-05-31 2020-05-31 SHUN Garcia [place] - [id number] [place] 00:00:00 00:00:00 MD: Ck [facility] [address], [facility], [place] [facility] [address] , Ph. 2020-04-05 2020-04-05 Outpatient Yan_W MMG MMG [id number] [place] 02:30:00 02:30:00 1118 [facility] 2020-03-13 2020-03-13 Outpatient Yan_W MMG MMG [id number] [place] 09:57:00 09:57:00 1031 [facility] 2020-03-13 2020-03-13 Outpatient Yan_W MMG MMG [id number] [place] 09:56:00 09:56:00 1026 [facility] 2020-03-07 2020-03-07 Outpatient Yan_W MMG MMG [id number] [place] 02:52:00 02:52:00 1020 [facility] 2020-03-07 2020-03-07 Outpatient Yan_W MMG MMG [id number] [place] 02:52:00 02:52:00 1025 [facility] 2020-03-07 2020-03-07 Mansoor Lemus MMRonda [place] - [id number] [place] 00:00:00 00:00:00 : Ck [facility] [address], [facility], [place]ol [place] [facility] [address] , Ph. 2020-02-29 2020-02-29 Outpatient Yan_W MMG MMG [id number] [place] 12:29:00 12:29:00 1013 [facility] 2019-12-27 2019-12-27 Out[facility] [id number] Common 11:15:00 11:15:[address] [facility] 2019-12-27 2019-12-27 Outpatient [facility] [id number] Common 09:19:00 09:19:[address] [facility] 2019-10-26 2019-10-26 Outpatient [facility] [id number] Common 08:15:00 08:15:[address] [facility] [address] [facility] 2019-10-20 2019-10-20 Outpatient [facility] [id number] Common 23:40:00 23:40:[address] [facility] [address] [facility] 2019-10-20 2019-10-20 Outpatient [facility] [id number] Common 14:40:00 14:40:[address] [facility] [address] [facility] 2019-08-19 2019-08-19 Outpatient [facility] [id number] Common 11:54:00 11:54:[address] [facility] [address] [facility] 2019-07-25 2019-07-25 Outpatient [facility] [id number] Common 13:11:00 13:11:[address] [facility] [address] [facility] 2019-07-20 2019-07-20 Outpatient [facility] [id number] Common 11:00:00 11:00:[address] [facility] [address] [facility] 2019-04-24 2019-04-24 Outpatient [facility] [id number] Common 03:26:00 03:26:[address] [facility] 2019-04-20 2019-04-20 Outpatient [facility] [id number] Common 09:40:00 09:40:[address] [facility] 2019-03-22 2019-03-22 Outpatient Judy Kim [id number] Common 14:55:00 14:55:00 Yanick Herndon Sp loren DO DO [facility] 2019-02-12 2019-02-12 Office JOSÉ MIGUEL Littlejohn 1.2.840.114 [id number] 10:42:57 11:02:57 Visit Tom Fishman AMBULATOR 350.1.13.21 Y 0.2.7.2.686 [id number] [facility] 2019-02-12 2019-02-12 Office JOSÉ MIGUEL Littlejohn 1.2.840.[id number] [place] [address] 10:42:57 11:02:57 Visit Tom Fishman AMBULATOR 350.1.13.21 College Y 0.2.7.2.686 of [id number] [facility] 315 e 2019-01-19 2019-01-19 Outpatient [facility] [id number] Common 14:40:00 14:40:[address] [facility] [address] [facility] 2018-11-04 2018-11-04 Outpatient [facility] [id number] Common 12:03:00 12:03:[address] [facility] 2018-08-26 2018-08-26 Outpatient [facility] [id number] Common 11:20:00 11:20:[address] [facility] 2018-08-14 2018-08-14 Outpatient [facility] [id number] Common 14:30:00 14:30:[address] [facility] 2018-08-03 2018-08-03 Outpatient [facility] [id number] Common 12:32:00 12:32:[address] [facility] 2018-06-01 2018-06-01 Outpatient [facility] [id number] Common 10:15:00 10:15:[address] [facility] 2018-03-02 2018-03-02 Outpatient [facility] [id number] Common 09:00:00 09:00:[address] [facility] 2018-01-30 2018-01-30 Outpatient [facility] [id number] Common 11:30:00 11:30:[address] [facility] 2018-01-20 2018-01-20 Outpatient [facility] [id number] Common 09:46:00 09:46:[address] [facility] 2018-01-13 2018-01-13 Outpatient [facility] [id number] Common 10:00:00 10:00:00 [facility] 2017-12-25 2017-12-25 Outpatient [facility] [id number] Common 10:56:00 10:56:[address] [facility] 2017-12-09 2017-12-09 Outpatient [facility] [id number] Common 21:03:00 21:03:[address] [facility] 2017-12-09 2017-12-09 Outpatient [facility] [id number] Common 09:45:00 09:45:[address] [facility] 2017-12-03 2017-12-03 Outpatient [facility] [id number] Common 10:45:00 10:45:[address] [facility] 2017-09-05 2017-09-05 Outpatient Tiffanie [facility] [id number] Common 16:00:00 16:00:00 [facility] 2017-07-11 2017-07-11 Outpatient Yahaira CORONADO, [facility] [id number] [address] 17:58:00 17:58:00 [facility] Results Test Description Test Time Test Comments Results Result Comments Source BASIC METABOLIC PANEL (35308)(NA, K, CL, CO2, GLUCOSE, BUN, 2021-11-28 17:43:49 CREATININE, CA) Test Item Value Reference Range Interpretation Comme nts NA (test code = 5757748302) 141 mmol/L 135-145 K (test code = 2616463966) 3.6 mmol/L 3.5-5 CL (test code = 1574998926) 104 mmol/L 98-108 CO2 TOTAL (test code = 6048377885) 28 mmol/L 23-31 AGAP (test code = 8926416523) 2-16 BUN (test code = 0524712403) 15 mg/dL 7-23 GLUCOSE (test code = 7581580701) 238 mg/dL 70-110 H CREATININE (test code = 0.52 mg/dL 0.5-1.04 9981654405) CALCIUM (test code = 8203527650) 8.6 mg/dL 8.6-10.6 eGFR (test code = 6886451591) mL/min/1.73m2 CHENCHO (test code = CHENCHO) Association [...] tests). Lab Interpretation (test code = Abnormal 19855-9) [facility] [id number] 17:36:04 Test Item Value Reference Range Interpretation Comments NT-proBNP (test code 977 pg/mL See_Comment H [Autom ated = 6290487815) message] The system which generated this result transmitted reference range : <=125. The reference range was not used to interpret this result as normal/abnormal . CHENCHO (test code = CHENCHO) Biotin has been reported to cause a negative bias, interpret results relative to patient's use of biotin. Lab Interpretation Abnormal (test code = 50386-6) [id number] 17:29:44 Test Item Value Reference Range Interpretation Comments MAGNESIUM (test code = 8952186529) 1.8 mg/dL 1.7-2.4 Lab Interpretation (test code = Normal 11181-3) [facility] Club[facility]MOGLOB[facility] [id number] 00:00:00 Test Item Value Reference Range Interpretation Comments A1C (test code = 4548-4) 6.3 HEMOGLOBIN [id number] 00:00:00 Test Item Value Reference Range Interpretation Comments A1C (test code = 4548-4) 6.3 CHEM [id number] 12:55:00 Test Item Value Reference Range Interpretation Comments Creatinine Lvl (test code = Creatinine 0.49 0.50-1.05 Lvl) [facility] [place] [id number] 12:55:00 Test Item Value Reference Range Interpretation Comments eGFR NON-AFR. NIGERIAN (test code = 107 eGFR NON-AFR. NIGERIAN) [facility] [employer] [id number] 12:55:00 Test Item Value Reference Range Interpretation Comments eGFR (test code = eGFR 124 ) [facility] [employer] [id number] 12:55:00 Test Item Value Reference Range Interpretation Comments B/C Ratio (test code = B/C Ratio) 35 6-22 [facility] [id number] 12:55:00 Test Item Value Reference Range Interpretation Comments Sodium Lvl (test code = Sodium Lvl) 140 135-146 [facility] [employer] [id number] 12:55:00 Test Item Value Reference Range Interpretation Comments Potassium Lvl (test code = Potassium 4.0 3.5-5.3 Lvl) [facility] [employer] [id number] 12:55:00 Test Item Value Reference Range Interpretation Comments Chloride Lvl (test code = Chloride Lvl) 105 98-110 [place] [id number] 12:55:00 Test Item Value Reference Range Interpretation Comments CO2 (test code = CO2) 29 20-32 [place] [id number] 12:55:00 Test Item Value Reference Range Interpretation Comments Calcium Lvl (test code = Calcium Lvl) 8.7 8.6-10.4 [place] 146731-10-07 12:55:00 Test Item Value Reference Range Interpretation Comments Total Protein (test code = Total 6.8 6.1-8.1 Protein) [place] 146731-10-07 12:55:00 Test Item Value Reference Range Interpretation Comments Albumin Lvl (test code = Albumin Lvl) 3.7 3.6-5.1 [place] 146731-10-07 12:55:00 Test Item Value Reference Range Interpretation Comments Globulin (test code = Globulin) 3.1 1.9-3.7 [place] 146731-10-07 12:55:00 Test Item Value Reference Range Interpretation Comments A/G Ratio (test code = A/G Ratio) 1.2 1.0-2.5 [place] 146731-10-07 12:55:00 Test Item Value Reference Range Interpretation Comments Bili Total (test code = Bili Total) 0.6 0.2-1.2 [place] 146731-10-07 12:55:00 Test Item Value Reference Range Interpretation Comments Alk Phos (test code = Alk Phos) 59 37-153 [place] 146731-10-07 12:55:00 Test Item Value Reference Range Interpretation Comments ASPARTATE TRANSAMINASE (test code = 18 10-35 ASPARTATE TRANSAMINASE) [place] 146731-10-07 12:55:00 Test Item Value Reference Range Interpretation Comments ALANINE AMINOTRANSFERASE (test code = 23 6-29 ALANINE AMINOTRANSFERASE) [place] 729501-10-07 12:55:00 Test Item Value Reference Range Interpretation Comments WBC X 10x3 (test code = WBC X 10x3) 4.8 3.8-10.8 [place] 729501-10-07 12:55:00 Test Item Value Reference Range Interpretation Comments RBC X 10x6 (test code = RBC X 10x6) 4.50 3.80-5.10 [place] 729501-10-07 12:55:00 Test Item Value Reference Range Interpretation Comments Hgb (test code = Hgb) 12.1 11.7-15.5 [place] 729501-10-07 12:55:00 Test Item Value Reference Range Interpretation Comments Hct (test code = Hct) 37.8 35.0-45.0 [place] 729501-10-07 12:55:00 Test Item Value Reference Range Interpretation Comments MCV (test code = MCV) 84.0 80.0-100.0 [place] 729501-10-07 12:55:00 Test Item Value Reference Range Interpretation Comments MCH (test code = MCH) 26.9 pg 27.0-33.0 [place] 729501-10-07 12:55:00 Test Item Value Reference Range Interpretation Comments MCHC (test code = MCHC) 32.0 32.0-36.0 [place] 729501-10-07 12:55:00 Test Item Value Reference Range Interpretation Comments RDW (test code = RDW) 14.0 11.0-15.0 [place] 729501-10-07 12:55:00 Test Item Value Reference Range Interpretation Comments Platelet (test code = Platelet) 151 140-400 [facility]TfcejuiKXUMIFRLNC5439-45-03 12:55:00 Test Item Value Reference Range Interpretation Comments MPV (test code = MPV) 12.1 7.5-12.5 [facility] DallasVkjpiafUYUBQHVCNZ5077-07-79 12:55:00 Test Item Value Reference Range Interpretation Comments Neutrophils # (test code = Neutrophils 0579 4232-0455 #) [facility] DallasFyjobkbNZFWWPLGNB5181-83-60 12:55:00 Test Item Value Reference Range Interpretation Comments Lymphocytes # (test code = Lymphocytes 1762 174-4379 #) [facility] DallasSnsnhisMRSFFWVFDH8531-26-53 12:55:00 Test Item Value Reference Range Interpretation Comments Monocytes # (test code = Monocytes #) 350 200-950 [facility] DallasQnjvgqzSMDRIOYMPX4879-95-86 12:55:00 Test Item Value Reference Range Interpretation Comments Eosinophils # (test code = Eosinophils 72 15-500 #) [place] 729501-10-07 12:55:00 Test Item Value Reference Range Interpretation Comments Basophils # (test code 29 See_Comment [Aut omated message] The = Basophils #) system which generated this result tra nsmitted reference range : <=200. The reference r brice was not used to int erpret this result as normal/abnormal . [place]29501-10-07 12:55:00 Test Item Value Reference Range Interpretation Comments Segs (test code = Segs) 65.4 [place] 729501-10-07 12:55:00 Test Item Value Reference Range Interpretation Comments Lymphocytes (test code = Lymphocytes) 25.2 [place] 729501-10-07 12:55:00 Test Item Value Reference Range Interpretation Comments Monocytes (test code = Monocytes) 7.3 [place] 729501-10-07 12:55:00 Test Item Value Reference Range Interpretation Comments Eosinophils (test code = Eosinophils) 1.5 [place] 729501-10-07 12:55:00 Test Item Value Reference Range Interpretation Comments Basophils (test code = Basophils) 0.6 [place] 729501-10-07 12:55:00 Test Item Value Reference Range Interpretation Comments Sed Rate (test code = Sed Rate) 22 [facility]ui[facility]wsMIIFCZFBPV3175[facility]17-47 12:55:00 Test Item Value Reference Range Interpretation Comments C-REACTIVE PROTEIN (test code = 2.9 C-REACTIVE PROTEIN) [facility]2021-10-07 12:55:00 Test Item Value Reference Range Interpretation Comments Vitamin B12 Lvl (test code = Vitamin 211 169-7141 B12 Lvl) [facility]2021-10-07 12:55:00 Test Item Value Reference Range Interpretation Comments Glucose Lvl (test code = Glucose Lvl) 151 65-99 [facility]2021-10-07 12:55:00 Test Item Value Reference Range Interpretation Comments BUN (test code = BUN) 17 7-25 [facility]2021-10-07 12:55:00 Test Item Value Reference Range Interpretation Comments Creatinine Lvl (test code = Creatinine 0.49 0.50-1.05 Lvl) [facility]2021-10-07 12:55:00 Test Item Value Reference Range Interpretation Comments Vitamin B12 Lvl (test code = Vitamin [phone] B12 Lvl) [facility]2021-10-07 12:55:00 Test Item Value Reference Range Interpretation Comments Glucose Lvl (test code = Glucose Lvl) 151 65-99 [place] 146731-10-07 12:55:00 Test Item Value Reference Range Interpretation Comments BUN (test code = BUN) 17 7-25 [place] 146731-10-07 12:55:00 Test Item Value Reference Range Interpretation Comments Creatinine Lvl (test code = Creatinine 0.49 0.50-1.05 Lvl) [place] 146731-10-07 12:55:00 Test Item Value Reference Range Interpretation Comments eGFR NON-AFR. NIGERIAN (test code = 107 eGFR NON-AFR. NIGERIAN) [place] 146731-10-07 12:55:00 Test Item Value Reference Range Interpretation Comments eGFR NON-AFR. NIGERIAN (test code = 107 eGFR NON-AFR. NIGERIAN) [place] 146731-10-07 12:55:00 Test Item Value Reference Range Interpretation Comments eGFR (test code = eGFR 124 ) [place] 146731-10-07 12:55:00 Test Item Value Reference Range Interpretation Comments B/C Ratio (test code = B/C Ratio) 35 6-22 [place] 146731-10-07 12:55:00 Test Item Value Reference Range Interpretation Comments Sodium Lvl (test code = Sodium Lvl) 140 135-146 [place] 146731-10-07 12:55:00 Test Item Value Reference Range Interpretation Comments Potassium Lvl (test code = Potassium 4.0 3.5-5.3 Lvl) [facility]2021-10-07 12:55:00 Test Item Value Reference Range Interpretation Comments Chloride Lvl (test code = Chloride Lvl) 105 98-110 [place] 146731-10-07 12:55:00 Test Item Value Reference Range Interpretation Comments CO2 (test code = CO2) 29 20-32 [place] 146731-10-07 12:55:00 Test Item Value Reference Range Interpretation Comments Calcium Lvl (test code = Calcium Lvl) 8.7 8.6-10.4 [place] 146731-10-07 12:55:00 Test Item Value Reference Range Interpretation Comments Total Protein (test code = Total 6.8 6.1-8.1 Protein) [place] 146731-10-07 12:55:00 Test Item Value Reference Range Interpretation Comments Albumin Lvl (test code = Albumin Lvl) 3.7 3.6-5.1 [place] 146731-10-07 12:55:00 Test Item Value Reference Range Interpretation Comments Globulin (test code = Globulin) 3.1 1.9-3.7 [place] 146731-10-07 12:55:00 Test Item Value Reference Range Interpretation Comments eGFR (test code = eGFR 124 ) [place] 146731-10-07 12:55:00 Test Item Value Reference Range Interpretation Comments A/G Ratio (test code = A/G Ratio) 1.2 1.0-2.5 [place] [address]-10-07 12:55:00 Test Item Value Reference Range Interpretation Comments Bili Total (test code = Bili Total) 0.6 0.2-1.2 [place] 146731-10-07 12:55:00 Test Item Value Reference Range Interpretation Comments Alk Phos (test code = Alk Phos) 59 37-153 [place] 146731-10-07 12:55:00 Test Item Value Reference Range Interpretation Comments ASPARTATE TRANSAMINASE (test code = 18 10-35 ASPARTATE TRANSAMINASE) [place] 146731-10-07 12:55:00 Test Item Value Reference Range Interpretation Comments ALANINE AMINOTRANSFERASE (test code = 23 6-29 ALANINE AMINOTRANSFERASE) [place]29501-10-07 12:55:00 Test Item Value Reference Range Interpretation Comments WBC X 10x3 (test code = WBC X 10x3) 4.8 3.8-10.8 [place] [address]-10-07 12:55:00 Test Item Value Reference Range Interpretation Comments RBC X 10x6 (test code = RBC X 10x6) 4.50 3.80-5.10 [place] 729501-10-07 12:55:00 Test Item Value Reference Range Interpretation Comments Hgb (test code = Hgb) 12.1 11.7-15.5 [place] 729501-10-07 12:55:00 Test Item Value Reference Range Interpretation Comments Hct (test code = Hct) 37.8 35.0-45.0 [facility] DallasZktlnsyBMMEPQSMHE6530-87-05 12:55:00 Test Item Value Reference Range Interpretation Comments MCV (test code = MCV) 84.0 80.0-100.0 [facility]2021-10-07 12:55:00 Test Item Value Reference Range Interpretation Comments B/C Ratio (test code = B/C Ratio) 35 6-22 [facility] DallasLhvfdqnBJSTBAQOPO1938-68-61 12:55:00 Test Item Value Reference Range Interpretation Comments MCH (test code = MCH) 26.9 pg 27.0-33.0 [facility] DallasNegljaaRHIMZLATFF9629-67-86 12:55:00 Test Item Value Reference Range Interpretation Comments MCHC (test code = MCHC) 32.0 32.0-36.0 [facility] DallasUcivcxeKMKDRUNHCR6744-58-32 12:55:00 Test Item Value Reference Range Interpretation Comments RDW (test code = RDW) 14.0 11.0-15.0 [facility] DallasYhriucgEZREPBGFDM2843-50-67 12:55:00 Test Item Value Reference Range Interpretation Comments Platelet (test code = Platelet) 151 140-400 [facility] DallasWnkzmwzUPQOOYBFQV8035-93-45 12:55:00 Test Item Value Reference Range Interpretation Comments MPV (test code = MPV) 12.1 7.5-12.5 [place] 729501-10-07 12:55:00 Test Item Value Reference Range Interpretation Comments Neutrophils # (test code = Neutrophils 3139 9874-3090 #) [facility] DallasQktidxgVJSAIUPYTK3701-90-37 12:55:00 Test Item Value Reference Range Interpretation Comments Lymphocytes # (test code = Lymphocytes 1223 837-3284 #) [facility] DallasIyyxkduYHMYKUOZBO1246-94-42 12:55:00 Test Item Value Reference Range Interpretation Comments Monocytes # (test code = Monocytes #) 350 200-950 [facility] DallasLyiwbwmODUOYONGBP2225-52-94 12:55:00 Test Item Value Reference Range Interpretation Comments Eosinophils # (test code = Eosinophils 72 15-500 #) [facility] DallasHcaasjeNFSQTKJWIH6438-97-46 12:55:00 Test Item Value Reference Range Interpretation Comments Basophils # (test code 29 See_Comment [Aut omated message] The = Basophils #) system which generated this result tra nsmitted reference range : <=200. The reference r brice was not used to int erpret this result as normal/abnormal . [place] 146731-10-07 12:55:00 Test Item Value Reference Range Interpretation Comments Sodium Lvl (test code = Sodium Lvl) 140 135-146 [place] [address]-10-07 12:55:00 Test Item Value Reference Range Interpretation Comments Segs (test code = Segs) 65.4 [place] [address]-10-07 12:55:00 Test Item Value Reference Range Interpretation Comments Lymphocytes (test code = Lymphocytes) 25.2 [place] [address]-10-07 12:55:00 Test Item Value Reference Range Interpretation Comments Monocytes (test code = Monocytes) 7.3 [place] [address]-10-07 12:55:00 Test Item Value Reference Range Interpretation Comments Eosinophils (test code = Eosinophils) 1.5 [place] [address]-10-07 12:55:00 Test Item Value Reference Range Interpretation Comments Basophils (test code = Basophils) 0.6 [place] [address]-10-07 12:55:00 Test Item Value Reference Range Interpretation Comments Sed Rate (test code = Sed Rate) 22 [facility] AreaOnkmvhgVAJODMJEBC7215-12-53 12:55:00 Test Item Value Reference Range Interpretation Comments C-REACTIVE PROTEIN (test code = 2.9 C-REACTIVE PROTEIN) [place] 146731-10-07 12:55:00 Test Item Value Reference Range Interpretation Comments Potassium Lvl (test code = Potassium 4.0 3.5-5.3 Lvl) [place] 146731-10-07 12:55:00 Test Item Value Reference Range Interpretation Comments Chloride Lvl (test code = Chloride Lvl) 105 98-110 [place] 146731-10-07 12:55:00 Test Item Value Reference Range Interpretation Comments CO2 (test code = CO2) 29 20-32 [place] 146731-10-07 12:55:00 Test Item Value Reference Range Interpretation Comments Calcium Lvl (test code = Calcium Lvl) 8.7 8.6-10.4 [place] 146731-10-07 12:55:00 Test Item Value Reference Range Interpretation Comments Total Protein (test code = Total 6.8 6.1-8.1 Protein) [place] 146731-10-07 12:55:00 Test Item Value Reference Range Interpretation Comments Albumin Lvl (test code = Albumin Lvl) 3.7 3.6-5.1 [place] 146731-10-07 12:55:00 Test Item Value Reference Range Interpretation Comments Globulin (test code = Globulin) 3.1 1.9-3.7 [place] 146731-10-07 12:55:00 Test Item Value Reference Range Interpretation Comments A/G Ratio (test code = A/G Ratio) 1.2 1.0-2.5 [place] 146731-10-07 12:55:00 Test Item Value Reference Range Interpretation Comments Bili Total (test code = Bili Total) 0.6 0.2-1.2 [place] 146731-10-07 12:55:00 Test Item Value Reference Range Interpretation Comments Alk Phos (test code = Alk Phos) 59 37-153 [place] 146731-10-07 12:55:00 Test Item Value Reference Range Interpretation Comments ASPARTATE TRANSAMINASE (test code = 18 10-35 ASPARTATE TRANSAMINASE) [place] 146731-10-07 12:55:00 Test Item Value Reference Range Interpretation Comments ALANINE AMINOTRANSFERASE (test code = 23 6-29 ALANINE AMINOTRANSFERASE) [place]29501-10-07 12:55:00 Test Item Value Reference Range Interpretation Comments WBC X 10x3 (test code = WBC X 10x3) 4.8 3.8-10.8 [place]29501-10-07 12:55:00 Test Item Value Reference Range Interpretation Comments RBC X 10x6 (test code = RBC X 10x6) 4.50 3.80-5.10 [place]29501-10-07 12:55:00 Test Item Value Reference Range Interpretation Comments Hgb (test code = Hgb) 12.1 11.7-15.5 [place] 729501-10-07 12:55:00 Test Item Value Reference Range Interpretation Comments Hct (test code = Hct) 37.8 35.0-45.0 [place]29501-10-07 12:55:00 Test Item Value Reference Range Interpretation Comments MCV (test code = MCV) 84.0 80.0-100.0 [place]29501-10-07 12:55:00 Test Item Value Reference Range Interpretation Comments MCH (test code = MCH) 26.9 pg 27.0-33.0 [facility] DallasMcqpibnKQWLAQVUYR6052-98-12 12:55:00 Test Item Value Reference Range Interpretation Comments MCHC (test code = MCHC) 32.0 32.0-36.0 [place]29501-10-07 12:55:00 Test Item Value Reference Range Interpretation Comments RDW (test code = RDW) 14.0 11.0-15.0 [place]29501-10-07 12:55:00 Test Item Value Reference Range Interpretation Comments Platelet (test code = Platelet) 151 140-400 [facility] DallasJdrtnqySOIVERFASD7730-58-33 12:55:00 Test Item Value Reference Range Interpretation Comments MPV (test code = MPV) 12.1 7.5-12.5 [place]29501-10-07 12:55:00 Test Item Value Reference Range Interpretation Comments Neutrophils # (test code = Neutrophils 3139 8697-1492 #) [facility] DallasSefhkbdROTTHZPEZG2688-25-06 12:55:00 Test Item Value Reference Range Interpretation Comments Lymphocytes # (test code = Lymphocytes 8405 226-3726 #) [facility] DallasJbzhjgzCNYXKBOQNB7863-80-08 12:55:00 Test Item Value Reference Range Interpretation Comments Monocytes # (test code = Monocytes #) 350 200-950 [facility] DallasDayfwraUOFLUTFIFG5201-50-65 12:55:00 Test Item Value Reference Range Interpretation Comments Eosinophils # (test code = Eosinophils 72 15-500 #) [place]29501-10-07 12:55:00 Test Item Value Reference Range Interpretation Comments Basophils # (test code 29 See_Comment [Aut omated message] The = Basophils #) system which generated this result tra nsmitted reference range : <=200. The reference r brice was not used to int erpret this result as normal/abnormal . [facility] DallasAnqhoxkRXKIAQPQFZ1998-00-18 12:55:00 Test Item Value Reference Range Interpretation Comments Segs (test code = Segs) 65.4 [place]29501-10-07 12:55:00 Test Item Value Reference Range Interpretation Comments Lymphocytes (test code = Lymphocytes) 25.[address]10-07 12:55:00 Test Item Value Reference Range Interpretation Comments Monocytes (test code = Monocytes) 7.3 [place] 729501-10-07 12:55:00 Test Item Value Reference Range Interpretation Comments Eosinophils (test code = Eosinophils) 1.5 [place] 729501-10-07 12:55:00 Test Item Value Reference Range Interpretation Comments Basophils (test code = Basophils) 0.6 [place] [address]-10-07 12:55:00 Test Item Value Reference Range Interpretation Comments Sed Rate (test code = Sed Rate) 22 [facility] AreaGqikfuqWBQPVRGTYT0113-78-33 12:55:00 Test Item Value Reference Range Interpretation Comments C-REACTIVE PROTEIN (test code = 2.9 C-REACTIVE PROTEIN) [facility]2021-10-07 12:55:00 Test Item Value Reference Range Interpretation Comments Vitamin B12 Lvl (test code = Vitamin [phone] B12 Lvl) [facility]2021-10-07 12:55:00 Test Item Value Reference Range Interpretation Comments Glucose Lvl (test code = Glucose Lvl) 151 65-99 [facility]2021-10-07 12:55:00 Test Item Value Reference Range Interpretation Comments BUN (test code = BUN) 17 7-25 [facility]2021-10-07 12:55:00 Test Item Value Reference Range Interpretation Comments Creatinine Lvl (test code = Creatinine 0.49 0.50-1.05 Lvl) [facility]2021-10-07 12:55:00 Test Item Value Reference Range Interpretation Comments eGFR NON-AFR. NIGERIAN (test code = 107 eGFR NON-AFR. NIGERIAN) [facility]2021-10-07 12:55:00 Test Item Value Reference Range Interpretation Comments eGFR (test code = eGFR 124 ) [place] 146731-10-07 12:55:00 Test Item Value Reference Range Interpretation Comments B/C Ratio (test code = B/C Ratio) 35 6-22 [place] 146731-10-07 12:55:00 Test Item Value Reference Range Interpretation Comments Sodium Lvl (test code = Sodium Lvl) 140 135-146 [place] 146731-10-07 12:55:00 Test Item Value Reference Range Interpretation Comments Potassium Lvl (test code = Potassium 4.0 3.5-5.3 Lvl) [place] 146731-10-07 12:55:00 Test Item Value Reference Range Interpretation Comments Chloride Lvl (test code = Chloride Lvl) 105 98-110 [place] 146731-10-07 12:55:00 Test Item Value Reference Range Interpretation Comments CO2 (test code = CO2) 29 20-32 [place] 146731-10-07 12:55:00 Test Item Value Reference Range Interpretation Comments Calcium Lvl (test code = Calcium Lvl) 8.7 8.6-10.4 [place] 146731-10-07 12:55:00 Test Item Value Reference Range Interpretation Comments Total Protein (test code = Total 6.8 6.1-8.1 Protein) [facility]2021-10-07 12:55:00 Test Item Value Reference Range Interpretation Comments Albumin Lvl (test code = Albumin Lvl) 3.7 3.6-5.1 [place] 146731-10-07 12:55:00 Test Item Value Reference Range Interpretation Comments Globulin (test code = Globulin) 3.1 1.9-3.7 [place] 146731-10-07 12:55:00 Test Item Value Reference Range Interpretation Comments A/G Ratio (test code = A/G Ratio) 1.2 1.0-2.5 [place] 146731-10-07 12:55:00 Test Item Value Reference Range Interpretation Comments Bili Total (test code = Bili Total) 0.6 0.2-1.2 [place] 146731-10-07 12:55:00 Test Item Value Reference Range Interpretation Comments Alk Phos (test code = Alk Phos) 59 37-153 [facility]2021-10-07 12:55:00 Test Item Value Reference Range Interpretation Comments ASPARTATE TRANSAMINASE (test code = 18 10-35 ASPARTATE TRANSAMINASE) [facility]2021-10-07 12:55:00 Test Item Value Reference Range Interpretation Comments ALANINE AMINOTRANSFERASE (test code = 23 6-29 ALANINE AMINOTRANSFERASE) [facility] DallasPgxihisEJOBLLGURD6185-90-02 12:55:00 Test Item Value Reference Range Interpretation Comments WBC X 10x3 (test code = WBC X 10x3) 4.8 3.8-10.8 [facility] DallasFycjlfvVSXCOHXQYF5814-52-15 12:55:00 Test Item Value Reference Range Interpretation Comments RBC X 10x6 (test code = RBC X 10x6) 4.50 3.80-5.10 [facility] DallasGdddbziXPTWQJIGNC7354-48-39 12:55:00 Test Item Value Reference Range Interpretation Comments Hgb (test code = Hgb) 12.1 11.7-15.5 [facility] DallasOanheehKVZTDBDURX6367-89-06 12:55:00 Test Item Value Reference Range Interpretation Comments Hct (test code = Hct) 37.8 35.0-45.0 [facility] DallasQptcejdVUJPUYNHUQ6230-98-00 12:55:00 Test Item Value Reference Range Interpretation Comments MCV (test code = MCV) 84.0 80.0-100.0 [facility] DallasVydgiwmYMSNPTXNXD2389-71-32 12:55:00 Test Item Value Reference Range Interpretation Comments MCH (test code = MCH) 26.9 pg 27.0-33.0 [facility] DallasTxybtvaANIJHWNNLJ7704-17-86 12:55:00 Test Item Value Reference Range Interpretation Comments MCHC (test code = MCHC) 32.0 32.0-36.0 [facility] DallasEopefzoNAHHACUYOW0285-12-91 12:55:00 Test Item Value Reference Range Interpretation Comments RDW (test code = RDW) 14.0 11.0-15.0 [facility] DallasMtepyrqYEWIIDJKXS6457-55-56 12:55:00 Test Item Value Reference Range Interpretation Comments Platelet (test code = Platelet) 151 140-400 [facility] DallasAoyajwrGTOYDLPBWS4797-75-78 12:55:00 Test Item Value Reference Range Interpretation Comments MPV (test code = MPV) 12.1 7.5-12.5 [facility] DallasQbnssudZXJRACQJUH8198-23-56 12:55:00 Test Item Value Reference Range Interpretation Comments Neutrophils # (test code = Neutrophils 3139 7018-0115 #) [facility] DallasMwozujbZLPCEZJPAY3294-69-65 12:55:00 Test Item Value Reference Range Interpretation Comments Lymphocytes # (test code = Lymphocytes [phone] #) [facility] DallasXlnaruzGTGZMAEKBW0637-03-50 12:55:00 Test Item Value Reference Range Interpretation Comments Monocytes # (test code = Monocytes #) 350 200-950 [place]29501-10-07 12:55:00 Test Item Value Reference Range Interpretation Comments Eosinophils # (test code = Eosinophils 72 15-500 #) [place]29501-10-07 12:55:00 Test Item Value Reference Range Interpretation Comments Basophils # (test code 29 See_Comment [Aut omated message] The = Basophils #) system which generated this result tra nsmitted reference range : <=200. The reference r brice was not used to int erpret this result as normal/abnormal . [place]29501-10-07 12:55:00 Test Item Value Reference Range Interpretation Comments Segs (test code = Segs) 65.4 [place] 729501-10-07 12:55:00 Test Item Value Reference Range Interpretation Comments Lymphocytes (test code = Lymphocytes) 25.2 [place] 729501-10-07 12:55:00 Test Item Value Reference Range Interpretation Comments Monocytes (test code = Monocytes) 7.3 [place] 729501-10-07 12:55:00 Test Item Value Reference Range Interpretation Comments Eosinophils (test code = Eosinophils) 1.5 [place] 729501-10-07 12:55:00 Test Item Value Reference Range Interpretation Comments Basophils (test code = Basophils) 0.6 [place] 729501-10-07 12:55:00 Test Item Value Reference Range Interpretation Comments Sed Rate (test code = Sed Rate) 22 [place] 912741-10-07 12:55:00 Test Item Value Reference Range Interpretation Comments C-REACTIVE PROTEIN (test code = 2.9 C-REACTIVE PROTEIN) [facility]2021-10-07 12:55:00 Test Item Value Reference Range Interpretation Comments Vitamin B12 Lvl (test code = Vitamin [phone] B12 Lvl) [facility]2021-10-07 12:55:00 Test Item Value Reference Range Interpretation Comments Glucose Lvl (test code = Glucose Lvl) 151 65-99 [facility]2021-10-07 12:55:00 Test Item Value Reference Range Interpretation Comments BUN (test code = BUN) 17 7-25 [facility]2021-10-07 12:55:00 Test Item Value Reference Range Interpretation Comments Vitamin B12 Lvl (test code = Vitamin 653 085-9194 B12 Lvl) [place] 146731-10-07 12:55:00 Test Item Value Reference Range Interpretation Comments Creatinine Lvl (test code = Creatinine 0.49 0.50-1.05 Lvl) [place] 146731-10-07 12:55:00 Test Item Value Reference Range Interpretation Comments eGFR NON-AFR. NIGERIAN (test code = 107 eGFR NON-AFR. NIGERIAN) [place] 146731-10-07 12:55:00 Test Item Value Reference Range Interpretation Comments eGFR (test code = eGFR 124 ) [place] 146731-10-07 12:55:00 Test Item Value Reference Range Interpretation Comments B/C Ratio (test code = B/C Ratio) 35 6-22 [place] 146731-10-07 12:55:00 Test Item Value Reference Range Interpretation Comments Sodium Lvl (test code = Sodium Lvl) 140 135-146 [place] 146731-10-07 12:55:00 Test Item Value Reference Range Interpretation Comments Potassium Lvl (test code = Potassium 4.0 3.5-5.3 Lvl) [place] 146731-10-07 12:55:00 Test Item Value Reference Range Interpretation Comments Chloride Lvl (test code = Chloride Lvl) 105 98-110 [place] 146731-10-07 12:55:00 Test Item Value Reference Range Interpretation Comments CO2 (test code = CO2) 29 20-32 [place] 146731-10-07 12:55:00 Test Item Value Reference Range Interpretation Comments Calcium Lvl (test code = Calcium Lvl) 8.7 8.6-10.4 [place] 146731-10-07 12:55:00 Test Item Value Reference Range Interpretation Comments Total Protein (test code = Total 6.8 6.1-8.1 Protein) [place] 146731-10-07 12:55:00 Test Item Value Reference Range Interpretation Comments Glucose Lvl (test code = Glucose Lvl) 151 65-99 [place] 146731-10-07 12:55:00 Test Item Value Reference Range Interpretation Comments Albumin Lvl (test code = Albumin Lvl) 3.7 3.6-5.1 [place] 146731-10-07 12:55:00 Test Item Value Reference Range Interpretation Comments Globulin (test code = Globulin) 3.1 1.9-3.7 [place] 146731-10-07 12:55:00 Test Item Value Reference Range Interpretation Comments A/G Ratio (test code = A/G Ratio) 1.2 1.0-2.5 [place] 146731-10-07 12:55:00 Test Item Value Reference Range Interpretation Comments Bili Total (test code = Bili Total) 0.6 0.2-1.2 [place] 146731-10-07 12:55:00 Test Item Value Reference Range Interpretation Comments Alk Phos (test code = Alk Phos) 59 37-153 [place] 146731-10-07 12:55:00 Test Item Value Reference Range Interpretation Comments ASPARTATE TRANSAMINASE (test code = 18 10-35 ASPARTATE TRANSAMINASE) [place] 146731-10-07 12:55:00 Test Item Value Reference Range Interpretation Comments ALANINE AMINOTRANSFERASE (test code = 23 6-29 ALANINE AMINOTRANSFERASE) [place] 729501-10-07 12:55:00 Test Item Value Reference Range Interpretation Comments WBC X 10x3 (test code = WBC X 10x3) 4.8 3.8-10.8 [place] 729501-10-07 12:55:00 Test Item Value Reference Range Interpretation Comments RBC X 10x6 (test code = RBC X 10x6) 4.50 3.80-5.10 [place] 729501-10-07 12:55:00 Test Item Value Reference Range Interpretation Comments Hgb (test code = Hgb) 12.1 11.7-15.5 [facility]2021-10-07 12:55:00 Test Item Value Reference Range Interpretation Comments BUN (test code = BUN) 17 7-25 [place] 729501-10-07 12:55:00 Test Item Value Reference Range Interpretation Comments Hct (test code = Hct) 37.8 35.0-45.0 [place] 729501-10-07 12:55:00 Test Item Value Reference Range Interpretation Comments MCV (test code = MCV) 84.0 80.0-100.0 [place] 729501-10-07 12:55:00 Test Item Value Reference Range Interpretation Comments MCH (test code = MCH) 26.9 pg 27.0-33.0 [facility]QS[facility] 12:55:00 Test Item Value Reference Range Interpretation Comments MCHC (test code = MCHC) 32.0 32.0-36.0 [facility] DallasAifhzwmGYQMGNEEST5688-88-92 12:55:00 Test Item Value Reference Range Interpretation Comments RDW (test code = RDW) 14.0 11.0-15.0 [place] 729501-10-07 12:55:00 Test Item Value Reference Range Interpretation Comments Platelet (test code = Platelet) 151 140-400 [place] 729501-10-07 12:55:00 Test Item Value Reference Range Interpretation Comments MPV (test code = MPV) 12.1 7.5-12.5 [place] 729501-10-07 12:55:00 Test Item Value Reference Range Interpretation Comments Neutrophils # (test code = Neutrophils 3139 1291-3345 #) [facility]EjdrfxtITMSLFCAWD1233-12-07 12:55:00 Test Item Value Reference Range Interpretation Comments Lymphocytes # (test code = Lymphocytes 3012 412-8988 #) [facility] DallasLccsvokUEOPTNOYCO7909-75-82 12:55:00 Test Item Value Reference Range Interpretation Comments Monocytes # (test code = Monocytes #) 350 200-950 [facility]2021-10-07 12:55:00 Test Item Value Reference Range Interpretation Comments Creatinine Lvl (test code = Creatinine 0.49 0.50-1.05 Lvl) [facility] DallasVwcgdfaXFFNIKUPIA7970-37-17 12:55:00 Test Item Value Reference Range Interpretation Comments Eosinophils # (test code = Eosinophils 72 15-500 #) [place] 729501-10-07 12:55:00 Test Item Value Reference Range Interpretation Comments Basophils # (test code 29 See_Comment [Aut omated message] The = Basophils #) system which generated this result tra nsmitted reference range : <=200. The reference r brice was not used to int erpret this result as normal/abnormal . [place] 729501-10-07 12:55:00 Test Item Value Reference Range Interpretation Comments Segs (test code = Segs) 65.4 [facility] DallasQpycpgcWSSPZESVED8569-56-62 12:55:00 Test Item Value Reference Range Interpretation Comments Lymphocytes (test code = Lymphocytes) 25.2 [place] 729501-10-07 12:55:00 Test Item Value Reference Range Interpretation Comments Monocytes (test code = Monocytes) 7.3 [place] 729501-10-07 12:55:00 Test Item Value Reference Range Interpretation Comments Eosinophils (test code = Eosinophils) 1.5 [place] 729501-10-07 12:55:00 Test Item Value Reference Range Interpretation Comments Basophils (test code = Basophils) 0.6 [place] 729501-10-07 12:55:00 Test Item Value Reference Range Interpretation Comments Sed Rate (test code = Sed Rate) 22 [facility]htlw[facility]ACYGRSXJI5421-06-48 12:55:00 Test Item Value Reference Range Interpretation Comments C-REACTIVE PROTEIN (test code = 2.9 C-REACTIVE PROTEIN) [facility]2021-10-07 12:55:00 Test Item Value Reference Range Interpretation Comments eGFR NON-AFR. NIGERIAN (test code = 107 eGFR NON-AFR. NIGERIAN) [facility]2021-10-07 12:55:00 Test Item Value Reference Range Interpretation Comments Vitamin B12 Lvl (test code = Vitamin 612 897-2326 B12 Lvl) [facility]2021-10-07 12:55:00 Test Item Value Reference Range Interpretation Comments Glucose Lvl (test code = Glucose Lvl) 151 65-99 [facility]2021-10-07 12:55:00 Test Item Value Reference Range Interpretation Comments BUN (test code = BUN) 17 7-25 [facility]2021-10-07 12:55:00 Test Item Value Reference Range Interpretation Comments eGFR (test code = eGFR 124 ) [facility]2021-10-07 12:55:00 Test Item Value Reference Range Interpretation Comments Creatinine Lvl (test code = Creatinine 0.49 0.50-1.05 Lvl) [facility]2021-10-07 12:55:00 Test Item Value Reference Range Interpretation Comments eGFR NON-AFR. NIGERIAN (test code = 107 eGFR NON-AFR. NIGERIAN) [facility]2021-10-07 12:55:00 Test Item Value Reference Range Interpretation Comments eGFR (test code = eGFR 124 ) [place] 146731-10-07 12:55:00 Test Item Value Reference Range Interpretation Comments B/C Ratio (test code = B/C Ratio) 35 6-22 [place] 146731-10-07 12:55:00 Test Item Value Reference Range Interpretation Comments Sodium Lvl (test code = Sodium Lvl) 140 135-146 [place] 146731-10-07 12:55:00 Test Item Value Reference Range Interpretation Comments Potassium Lvl (test code = Potassium 4.0 3.5-5.3 Lvl) [facility]2021-10-07 12:55:00 Test Item Value Reference Range Interpretation Comments Chloride Lvl (test code = Chloride Lvl) 105 98-110 [place] 146731-10-07 12:55:00 Test Item Value Reference Range Interpretation Comments CO2 (test code = CO2) 29 20-32 [place] 146731-10-07 12:55:00 Test Item Value Reference Range Interpretation Comments Calcium Lvl (test code = Calcium Lvl) 8.7 8.6-10.4 [place] 146731-10-07 12:55:00 Test Item Value Reference Range Interpretation Comments Total Protein (test code = Total 6.8 6.1-8.1 Protein) [facility]2021-10-07 12:55:00 Test Item Value Reference Range Interpretation Comments B/C Ratio (test code = B/C Ratio) 35 6-22 [place] 146731-10-07 12:55:00 Test Item Value Reference Range Interpretation Comments Albumin Lvl (test code = Albumin Lvl) 3.7 3.6-5.1 [place] 146731-10-07 12:55:00 Test Item Value Reference Range Interpretation Comments Globulin (test code = Globulin) 3.1 1.9-3.7 [place] 146731-10-07 12:55:00 Test Item Value Reference Range Interpretation Comments A/G Ratio (test code = A/G Ratio) 1.2 1.0-2.5 [place] 146731-10-07 12:55:00 Test Item Value Reference Range Interpretation Comments Bili Total (test code = Bili Total) 0.6 0.2-1.2 [place] 146731-10-07 12:55:00 Test Item Value Reference Range Interpretation Comments Alk Phos (test code = Alk Phos) 59 37-153 [place] 146731-10-07 12:55:00 Test Item Value Reference Range Interpretation Comments ASPARTATE TRANSAMINASE (test code = 18 10-35 ASPARTATE TRANSAMINASE) [place] 146731-10-07 12:55:00 Test Item Value Reference Range Interpretation Comments ALANINE AMINOTRANSFERASE (test code = 23 6-29 ALANINE AMINOTRANSFERASE) [place] 729501-10-07 12:55:00 Test Item Value Reference Range Interpretation Comments WBC X 10x3 (test code = WBC X 10x3) 4.8 3.8-10.8 [place] [address]-10-07 12:55:00 Test Item Value Reference Range Interpretation Comments RBC X 10x6 (test code = RBC X 10x6) 4.50 3.80-5.10 [place] [address]-10-07 12:55:00 Test Item Value Reference Range Interpretation Comments Hgb (test code = Hgb) 12.1 11.7-15.5 [facility]2021-10-07 12:55:00 Test Item Value Reference Range Interpretation Comments Sodium Lvl (test code = Sodium Lvl) 140 135-146 [facility] DallasOszstszOUHOZLGPZA9001-94-42 12:55:00 Test Item Value Reference Range Interpretation Comments Hct (test code = Hct) 37.8 35.0-45.0 [place] [address]-10-07 12:55:00 Test Item Value Reference Range Interpretation Comments MCV (test code = MCV) 84.0 80.0-100.0 [place] 729501-10-07 12:55:00 Test Item Value Reference Range Interpretation Comments MCH (test code = MCH) 26.9 pg 27.0-33.0 [place] [address]-10-07 12:55:00 Test Item Value Reference Range Interpretation Comments MCHC (test code = MCHC) 32.0 32.0-36.0 [place] 729501-10-07 12:55:00 Test Item Value Reference Range Interpretation Comments RDW (test code = RDW) 14.0 11.0-15.0 [place] 729501-10-07 12:55:00 Test Item Value Reference Range Interpretation Comments Platelet (test code = Platelet) 151 140-400 [facility] DallasCattjwmVWZIRNWGTG2716-06-80 12:55:00 Test Item Value Reference Range Interpretation Comments MPV (test code = MPV) 12.1 7.5-12.5 [facility] DallasLzyvjchIFCZZTMUIL9605-42-32 12:55:00 Test Item Value Reference Range Interpretation Comments Neutrophils # (test code = Neutrophils 3139 7463-7840 #) [facility] DallasZqzlgwvAEPEXJUFWI6215-08-26 12:55:00 Test Item Value Reference Range Interpretation Comments Lymphocytes # (test code = Lymphocytes 2321 235-7071 #) [facility] DallasOycsvquOKCJBMGGBX8371-33-99 12:55:00 Test Item Value Reference Range Interpretation Comments Monocytes # (test code = Monocytes #) 350 200-950 [facility]2021-10-07 12:55:00 Test Item Value Reference Range Interpretation Comments Potassium Lvl (test code = Potassium 4.0 3.5-5.3 Lvl) [facility] DallasKletxsfOCWICKKTFH6970-88-78 12:55:00 Test Item Value Reference Range Interpretation Comments Eosinophils # (test code = Eosinophils 72 15-500 #) [facility] DallasXrqwxitDJFNRBZJRR8120-15-34 12:55:00 Test Item Value Reference Range Interpretation Comments Basophils # (test code 29 See_Comment [Aut omated message] The = Basophils #) system which generated this result tra nsmitted reference range : <=200. The reference r brice was not used to int erpret this result as normal/abnormal . [facility] DallasJbhpvhfVDNVBNXOVE4683-88-80 12:55:00 Test Item Value Reference Range Interpretation Comments Segs (test code = Segs) 65.4 [place] 729501-10-07 12:55:00 Test Item Value Reference Range Interpretation Comments Lymphocytes (test code = Lymphocytes) 25.2 [place] 729501-10-07 12:55:00 Test Item Value Reference Range Interpretation Comments Monocytes (test code = Monocytes) 7.3 [place] 729501-10-07 12:55:00 Test Item Value Reference Range Interpretation Comments Eosinophils (test code = Eosinophils) 1.5 [facility] DallasGvinbwjHWZGAMQKAJ9033-36-12 12:55:00 Test Item Value Reference Range Interpretation Comments Basophils (test code = Basophils) 0.6 [place] [address]-10-07 12:55:00 Test Item Value Reference Range Interpretation Comments Sed Rate (test code = Sed Rate) 22 [facility] AreaOtqrkxpCDLJPCRRHH0553-69-61 12:55:00 Test Item Value Reference Range Interpretation Comments C-REACTIVE PROTEIN (test code = 2.9 C-REACTIVE PROTEIN) [place] 146731-10-07 12:55:00 Test Item Value Reference Range Interpretation Comments Chloride Lvl (test code = Chloride Lvl) 105 98-110 [place] 146731-10-07 12:55:00 Test Item Value Reference Range Interpretation Comments CO2 (test code = CO2) 29 20-32 [place] 146731-10-07 12:55:00 Test Item Value Reference Range Interpretation Comments Calcium Lvl (test code = Calcium Lvl) 8.7 8.6-10.4 [place] 146731-10-07 12:55:00 Test Item Value Reference Range Interpretation Comments Total Protein (test code = Total 6.8 6.1-8.1 Protein) [place] 146731-10-07 12:55:00 Test Item Value Reference Range Interpretation Comments Albumin Lvl (test code = Albumin Lvl) 3.7 3.6-5.1 [place] 146731-10-07 12:55:00 Test Item Value Reference Range Interpretation Comments Globulin (test code = Globulin) 3.1 1.9-3.7 [place] 146731-10-07 12:55:00 Test Item Value Reference Range Interpretation Comments A/G Ratio (test code = A/G Ratio) 1.2 1.0-2.5 [place] 146731-10-07 12:55:00 Test Item Value Reference Range Interpretation Comments Bili Total (test code = Bili Total) 0.6 0.2-1.2 [place] 146731-10-07 12:55:00 Test Item Value Reference Range Interpretation Comments Alk Phos (test code = Alk Phos) 59 37-153 [facility]2021-10-07 12:55:00 Test Item Value Reference Range Interpretation Comments ASPARTATE TRANSAMINASE (test code = 18 10-35 ASPARTATE TRANSAMINASE) [place] 146731-10-07 12:55:00 Test Item Value Reference Range Interpretation Comments ALANINE AMINOTRANSFERASE (test code = 23 6-29 ALANINE AMINOTRANSFERASE) [facility] DallasWuudzchZRFZKEBUMX7289-25-05 12:55:00 Test Item Value Reference Range Interpretation Comments WBC X 10x3 (test code = WBC X 10x3) 4.8 3.8-10.8 [place] 729501-10-07 12:55:00 Test Item Value Reference Range Interpretation Comments RBC X 10x6 (test code = RBC X 10x6) 4.50 3.80-5.10 [facility] DallasJkpmhvaNFARFUBWLW8454-35-63 12:55:00 Test Item Value Reference Range Interpretation Comments Hgb (test code = Hgb) 12.1 11.7-15.5 [facility] DallasLxxltgcWDNSHTVUXO1424-31-02 12:55:00 Test Item Value Reference Range Interpretation Comments Hct (test code = Hct) 37.8 35.0-45.0 [facility] DallasDxwamhmATRBMGPQNY0314-07-41 12:55:00 Test Item Value Reference Range Interpretation Comments MCV (test code = MCV) 84.0 80.0-100.0 [place] 729501-10-07 12:55:00 Test Item Value Reference Range Interpretation Comments MCH (test code = MCH) 26.9 pg 27.0-33.0 [facility] DallasGnvepyzNRESZQHOYE0195-37-19 12:55:00 Test Item Value Reference Range Interpretation Comments MCHC (test code = MCHC) 32.0 32.0-36.0 [facility] DallasXsinmpaVQKQHXFEPZ1950-30-71 12:55:00 Test Item Value Reference Range Interpretation Comments RDW (test code = RDW) 14.0 11.0-15.0 [facility] DallasEavdhiyMDDMOTEJON4729-10-45 12:55:00 Test Item Value Reference Range Interpretation Comments Platelet (test code = Platelet) 151 140-400 [facility] DallasHrbuvauTXZRDGOAWN1828-78-76 12:55:00 Test Item Value Reference Range Interpretation Comments MPV (test code = MPV) 12.1 7.5-12.5 [place] 729501-10-07 12:55:00 Test Item Value Reference Range Interpretation Comments Neutrophils # (test code = Neutrophils 8371 4245-2805 #) [facility] DallasTgaywzsNUEXYBKKRH6696-82-94 12:55:00 Test Item Value Reference Range Interpretation Comments Lymphocytes # (test code = Lymphocytes 7283 344-4855 #) [facility] DallasZgrybmxFFHNMBHFSB8817-08-22 12:55:00 Test Item Value Reference Range Interpretation Comments Monocytes # (test code = Monocytes #) 350 200-950 [facility] DallasGpyzhusSGZYPTHUJO9082-27-47 12:55:00 Test Item Value Reference Range Interpretation Comments Eosinophils # (test code = Eosinophils 72 15-500 #) [facility] DallasWohfixiAMJTJQNBWL4530-43-37 12:55:00 Test Item Value Reference Range Interpretation Comments Basophils # (test code 29 See_Comment [Aut omated message] The = Basophils #) system which generated this result tra nsmitted reference range : <=200. The reference r brice was not used to int erpret this result as normal/abnormal . [facility] DallasAbqwpihZGJRDMAGLY7920-12-80 12:55:00 Test Item Value Reference Range Interpretation Comments Segs (test code = Segs) 65.4 [facility] DallasUauvifqSFJNTTQXKE5848-89-66 12:55:00 Test Item Value Reference Range Interpretation Comments Lymphocytes (test code = Lymphocytes) 25.2 [facility] DallasTacybwzMSAPYNJVYD0940-05-76 12:55:00 Test Item Value Reference Range Interpretation Comments Monocytes (test code = Monocytes) 7.3 [facility] DallasAvzrvacKFCBRKHSFO4009-76-82 12:55:00 Test Item Value Reference Range Interpretation Comments Eosinophils (test code = Eosinophils) 1.5 [facility] DallasFityampKQCPMZKJVV0044-71-00 12:55:00 Test Item Value Reference Range Interpretation Comments Basophils (test code = Basophils) 0.6 [facility] DallasDskbohwHJPFWZMKBE0434-76-38 12:55:00 Test Item Value Reference Range Interpretation Comments Sed Rate (test code = Sed Rate) 22 [facility] AreaFkdcmguGKOUYQRQVY4279-59-86 12:55:00 Test Item Value Reference Range Interpretation Comments C-REACTIVE PROTEIN (test code = 2.9 C-REACTIVE PROTEIN) [facility]2021-10-07 12:55:00 Test Item Value Reference Range Interpretation Comments Vitamin B12 Lvl (test code = Vitamin 681 631-6541 B12 Lvl) [facility]2021-10-07 12:55:00 Test Item Value Reference Range Interpretation Comments Glucose Lvl (test code = Glucose Lvl) 151 65-99 [facility]2021-10-07 12:55:00 Test Item Value Reference Range Interpretation Comments BUN (test code = BUN) 17 7-25 [facility] AreaLipid Wtxhrcu8470-52-71 22:09:00 Test Item Value Reference Range Interpretation Comments Cholesterol (test 107 mg/dL 0-200 N code = CHOL) Triglycerides (test 76 mg/dL 9-200 N code = TRIG) HDL (test code = 36 mg/dL 50-60 L HDL) Chol/HDL (test code 3.0 Ratio 0.0-4.4 N = CHOLPHDL) LDL, Calculated 56 0-130 N (NOTE)RISK O F HEART (test code = LDLC) DISEASEPu blished by [place] Heart AssociationAnal yte Optimal Boderli ne Increased RiskC HOL <200 200-239 >240TRI G <150 150-199 >200HDL Male: >60 <40HDL Fema le: >60 <50LDL <100 130 -159 >160LDL NEAR OP TIMAL IS 100-129 VLDL (test code = 15 mg/dL 5-40 N VLDL) LDL/HDL (test code = 2 LDLPHDL) Comprehensive Metabolic Skcwo1233-85-58 22:09:00 Test Item Value Reference Range Interpretation [...] by the [employer] Foundation,http ://nkd ep.nih.gov Bji-[id number] 22:05:00 Test Item Value Reference Range Interpretation Comments NT ProBnp (test code = PBNP) 1920 pg/mL 0-124 H CBC with Ojbiudwtjmxh6891-76-34 18:24:00 Test Item Value Reference Range Interpretation [...] code = ALYMPH) 1.4 K/cumm 0.5-4.6 N [place] Abs (test code = AMONO) 0.3 K/cumm 0.0-1.2 N Eos Abs (test code = AEOS) 0.09 K/cumm 0.00-0.74 N Baso Abs (test code = ABASO) 0.0 K/cumm 0.00-0.21 N HEMOGLOBIN A1C Test Item Value Reference Range Interpretation Comments A1C (test code = 4548-4) 6.8% SARS-COV 2 AntigenSARS-COV 2 Antigen"
[2022-08-02] MEDS ORDERED: KETOROLAC 30 MG/ML INJ ONE (12:33)
--- NOTE | 2022-08-02 12:48 | ER ---
Nurse's Notes [facility] [place] Name: Sukh York Age: 62 yrs Sex: Female : 1960 Arrival Date: 08/02/2022 Time: 12:15 Bed IW5 Private MD: Lucy Schaeffer Diagnosis: Low back pain Presentation: 08/02 12:25 Chief complaint: Low back pain that radiates to right leg x 4 days. Coronavirus screen: hb At this time, the client does not indicate any symptoms associated with coronavirus-19. Ebola Screen: No symptoms or risks identified at this time. Initial Sepsis Screen: Does the patient meet any 2 criteria? No. Patient's initial sepsis screen is negative. Does the patient have a suspected source of infection? No. Patient's initial sepsis screen is negative. Risk Assessment: Do you want to hurt yourself or someone else? Patient reports no desire to harm self or others. Onset of symptoms was July 30, 2022. 12:25 Method Of Arrival: Ambulatory hb 12:25 Acuity: RADHA 4 hb Historical: - Allergies: 12:26 PENICILLINS; hb - PMHx: 12:26 CHF; COPD; Diabetes - NIDDM; Hypertension; hb - PSHx: 12:26 defibrillator; hb - Immunization history:: Adult Immunizations up to date. - Social history:: Smoking status: . Vital Signs: 12:26 BP 148 / 82; Pulse 68; Resp 18; Temp 98.4; Pulse Ox 100% on R/A; Weight 113.4 kg; hb Height 5 ft. 1 in. ; Pain 10/10; 12:26 Body Mass Index 47.24 (113.40 kg, 154.94 cm) hb 12:26 Pain Scale: Adult hb ED Course: 12:15 Patient arrived in ED. mr 12:15 Lucy Schaeffer is Private Physician. mr 12:16 [facility] kb 12:16 Perez Goddard MD is Attending Physician. kb 12:26 Triage completed. hb 12:26 Arm band placed on. hb Administered Medications: 12:34 Drug: Ketorolac IM 30 mg Route: IM; Site: right deltoid; hb Outcome: 12:48 Discharge ordered by . kb Signatures: Amalia Brothers FNP-C FNP-Ckb Robert, Yakelin mr Ashwin, Juliana, RN RN hb
--- NOTE | 2022-08-02 12:48 | EDPHYS ---
Physician Documentation [facility] [place] Name: Sukh York Age: 62 yrs Sex: Female : 1960 Arrival Date: 08/02/2022 Time: 12:15 Bed IW5 Private MD: Lucy Schaeffer ED Physician Perez Goddard Historical: - Allergies: 08/02 12:26 PENICILLINS; hb - PMHx: 12:26 CHF; COPD; Diabetes - NIDDM; Hypertension; hb - PSHx: 12:26 defibrillator; hb - Immunization history:: Adult Immunizations up to date. - Social history:: Smoking status: . Vital Signs: 12:26 BP 148 / 82; Pulse 68; Resp 18; Temp 98.4; Pulse Ox 100% on R/A; Weight 113.4 kg; hb Height 5 ft. 1 in. ; Pain 10/10; 12:26 Body Mass Index 47.24 (113.40 kg, 154.94 cm) hb 12:26 Pain Scale: Adult hb MDM: 12:28 Patient medically screened. kb Administered Medications: 12:34 Drug: Ketorolac IM 30 mg Route: IM; Site: right deltoid; hb Disposition Summary: 08/02/22 12:48 Discharge Ordered Location: Home kb Condition: Stable kb Diagnosis - Low back pain kb Followup: kb - With: Emergency Department - When: As needed - Reason: Worsening of condition Followup: kb - With: Private Physician - When: 2 - 3 days - Reason: Recheck today's complaints, Continuance of care, Re-evaluation by your physician Forms: - Medication Reconciliation Form kb - Thank You Letter kb - Antibiotic Education kb - Prescription Opioid Use kb Signatures: Amalia Brothers FNP-C [employer]-Juliana Godfrey, RN RN hb
[2022-08-02 13:32] VITALS: BP 148/82; TEMP 98.4; O2SAT 100
== END 2022-08-02 13:18 | disposition home or self-care (01) ==
LOC: ER 12:06
DX: M54.50 Low back pain, unspecified (principal)
CPT/HCPCS: 96372; 99283

== ENCOUNTER 2022-11-28 16:01 | Emergency (ER) | payer OTHER ==
--- OUTSIDE RECORDS SUMMARY | 2022-11-28 16:19 | XMS REPORT | Continuity of Care Document ---
:[address] [facility] t Address [address] [facility] [address] [place] [id number] Care Team Providers Name Role Phone JACQUI CORONADO Primary Care Physician Unavailable Aissatou Tapia Attending Clinician Unavailable Aleah Nicholson Attending Clinician Unavailable MIREYA ANGEL Attending Clinician Unavailable SOPHIE PITTMAN Attending Clinician Unavailable Araceli ACM, Wood Syed Attending Clinician [phone] Mireya Ivory Attending Clinician FE RHODES Attending Clinician Unavailable Doctor Unassigned, [place] Attending Clinician Unavailable Alyssa Dodd MD Attending Clinician [phone] ALYSSA DDOD Attending Clinician Unavailable Sigifredo Ramirez MD Attending Clinician SIGIFREDO RAMIREZ Attending Clinician Unavailable SIGIFREDO RAMIREZ Attending Clinician Unavailable VIVEK IVEY Attending Clinician Unavailable Rosangela RN, Marychuy Fishman Attending Clinician Unavailable Lab, Ang - Db Attending Clinician Unavailable Andrews Perla MD Attending Clinician ANDREWS PERLA Attending Clinician Unavailable ANDREWS PERLA Attending Clinician Unavailable JACQUI CORONADO Attending Clinician Unavailable LATASHA LEAL Attending Clinician Unavailable Latasha Leal MD Attending Clinician , [facility] Sleep Lab Bed Attending Clinician Unavailable Feliberto, General Cardiology Attending Clinician Unavailable WOOD ROACH Attending Clinician Unavailable Testing, [facility] Pulmonary Function Attending Clinician Unavaila Miguel Choudhury MD Attending Clinician MIGUEL FORD Attending Clinician Unavailable RADIOLOGY Attending Clinician Unavailable Radiology Attending Clinician Unavailable Pob, [facility] Main Attending Clinician Unavailable Milo Bennett MD Attending Clinician Fe Rhodes MD Attending Clinician MANDI MOON Attending Clinician Unavailable Nurse, Alexander Donaldson Attending Clinician Unavailable Unknown, Attending Attending Clinician Unavailable UNKNOWN, ATTENDING Attending Clinician Unavailable Regulo Villa Attending Clinician Yue CAM Senddaron K.H. Attending Clinician JOEL TURNER K.HRenuka Attending Clinician Unavailable Kennedy_Lucio Attending Clinician Unavailable Tom Littlejohn MD Attending Clinician JACQUI CORONADO Attending Clinician Unavailable WOOD ROACH Admitting Clinician Unavailable JOEL TURNER K.HR[place]uka Admitting Clinician Unavailable Fina Admitting Clinician Unavailable JACQUI CORONADO Admitting Clinician Unavailable Payers Payer Name Policy Type Policy Number Effective Date Expiration Date S jerome [facility] DUAL [id number] 2021 COMP HMO D SNP 00:00:00 [place] [id number] 2017 00:00:[address] [facility] [id number] 2021 Common DUAL MCR WELLMED 00:00:00 [facility] MEDICARE NOVITAS MB [id number] [facility] MEDICARE NOVITAS MB [id number] [facility] MEDICARE NOVITAS MB [id number] [facility] MEDICARE NOVITAS MB [id number] [facility] MEDICARE NOVITAS MB [id number] [facility] [employer]LL[employer] - [id number] [address] [facility] 00:00:00 (MEDICARE REPLACEMENT/ADVAN TAGE - HMO) MEDICAID-AL [id number] (MEDICAID) [facility] [id number] - DUAL COMPLETE - DUAL ELIGIBLE - SNP (MEDICARE-MEDICAI D REPLACEMENT HMO) Problems Condition Condition Condition Status Onset Resolution Last Treating Co mments Source Name Details Category Date Date Treatment Clinician Date Angina Angina Disease Active Univers pectoris pectoris 4-19 ity of 00:00: [place] 00 Medical Branch Diabetes Diabetes Disease Active Unive rs mellitus mellitus 4-19 ity of 00:00: [place] [facility] Sick sinus Sick sinus Disease Active U nivers syndrome syndrome 4-19 ity of 00:00: [place] 00 Medical Branch Ventricula Ventricula Disease Active [...] 00 Medical Branch 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 7-24 it y of r r 00:00: [place] tachycardi tachycardi 00 Me dical a a Branch Cardiac Cardiac Problem Active 2021-07-26 Me moria defibrilla defibrilla 22:53:26 l tor in tor in [place] situ situ (finding) (finding) Active Problem 07/26/2021 [facility] 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 22:53:26 l s s Kasi (disorder) (disorder) Active Problem 07/26/2021 [facility] Congestive Congestiv Problem Active 2021-07-26 Memoria heart e heart 22:53:26 l failure failure [place] (disorder) (disorder) Active Problem 07/26/2021 [facility] Headache Headache Problem Active 2021-07-26 Memoria (finding) (finding) 22:53:26 l Active [place]asi Problem 07/26/2021 [facility] Neoplasm Neoplasm Problem Active 2021-07-26 Memoria of of 22:53:26 l meninges meninges Ferdinand n (disorder) (disorder) Active Problem 07/26/2021 [facility] Essential Hypertensi Problem Co mmon hypertensi on, Spirit on unspecifie - CHI d [facility] Diabetes Diabetes Problem Active 2021-07-26 Memoria mellitus mellitus 22:53:26 l type 2 type 2 [place]asi (disorder) (disorder) Active Problem 07/26/2021 [facility] [id number] Unsteady Problem Commo n gait Spirit - [facility] [id number] Obstructiv Problem Com mon e sleep Spirit apnea - [facility] (adult) (pediatric [facility] Hypertensi Hypertensi Problem C ommon on on [facility] - [facility] Peripheral Peripheral Problem C ommon vascular vascular Spirit disease disease - [facility] Type II Diabetes Problem Common diabetes type 2, Spirit mellitus controlled - CH I well controlled [facility] Cardiomyop Cardiomyop Problem C ommon athy athy Spirit - [facility] [id number] Constipati Problem Com mon on, Spirit unspecifie - CHI d St constipati [facility] [id number] AICD Problem Common (automatic Spirit cardiovert - CHI er/defibri llator) [facility] [id number] Other Problem Common chronic Spirit pain - [facility] [id number] Tremor of Problem Com mon both hands [facility] [id number] Polyarthra Problem Com mon lgia [facility] [id number] Chest Problem Common pain, [facility] unspecifie - CHI d type [facility] [id number] Chronic Problem Common congestive Spirit heart - CHI failure, unspecifie [facility] d heart Medical failure Center type [id number] Morbid Problem Common (severe) Spirit obesity - CHI due to [facility] calories [facility] [id number] Coronary Problem Com mon 107 artery [facility] disease - CHI involving [facility] coronary Medical artery of [place] heart, angina presence unspecifie d [id number] Primary Problem Comm on osteoarthr Spirit itis of - CHI right knee [facility] [id number] Status Problem Common post fall [facility] [id number] Falls Problem Common frequently [facility] [id number] Shortness Problem Com mon of breath [facility] Depression Depression Problem C ommon [facility] [id number] Peripheral Problem Co mmon edema [facility] [id number] Asthma, Problem Commo n unspecifie Spirit d asthma - CHI severity, St unspecifie [facility] d whether Medical complicate Center d, unspecifie d whether persistent [id number] Non-pressu Problem Com mon re chronic Spirit ulcer of - CHI unspecifie St d part of [facility] left lower Medica l leg with Center unspecifie d severity [id number] Varicose Problem Comm on veins of Spirit left lower - CHI extremity St with ulcer [facility] of Medical unspecifie Center d site Allergies, Adverse Reactions, Alerts Allergy Allergy Status Severity Reaction(s) Onset Inactive Treating Comm ents Source Name Type Date Date Clinician PENICILL DRUG Active Unknown-Cmnt Un winter IN INGREDI 5-15 ity of 00:00: [place] 00 Medical Branch Penicill Propensi Active Unknown - Uni vers in ty to See comments 09-30 ity of adverse 00:00: [place] reaction 00 Medical s Branch Penicill Propensi Active Other - See Seizures Univers ins ty to comments 3-22 ity of adverse 00:00: [place] reaction 00 Medical s Branch PENICILL Drug Active Other-Cmnt 2016- Univ ers INS Class 3-22 ity of 00:00: [place] 00 Medical Branch Penicill Propensi Active Other - See Seizures Univers ins ty to comments 3-22 ity of adverse 00:00: [place] reaction 00 Medical s Branch penicill penicill Active Memori a in in l [place] Penicill Penicill Active Unknown Commo n in in [facility] PENICILL Allergy Active [place] [facility] Medical e Group Social History Social Habit Start Date Stop Date Quantity Comments Source Exposure to 2022-10-06 2022-10-16 Not sure [facility] SARS-CoV-2 00:00:00 11:16:00 [facility] (event) [place] Alcohol intake 2022-10-10 2022-10-10 Lifetime University of 00:00:00 00:00:00 non-drinker [facility] (finding) [place] Tobacco use and 2022-04-10 2022-04-10 Smokeless tobacco Un iversity of exposure 00:00:00 00:00:00 non-user [facility] Social History 2021-02-21 2021-02-21 [facility] 19:06:01 19:06:01 History of 2014-05-19 Cigar Smoker University o f tobacco use 00:00:00 [facility] Sex Assigned At [birth year] [facility] 00:00:00 00:00:00 [facility] Smoking Status Start Date Stop Date Source Ex-smoker 2022-04-10 00:00:00 2022-04-10 00:00:00 Universi ty of [facility] Medications Ordered Filled Start Stop Current Ordering Indication Dosage Frequency Signature Comments Components Source Medication Medication Date Date Medication? Clinician (SIG) Name Name JARDIANCE Yes [id number] Take 1 U nivers 10 mg 6-27 tablet by ity of 00:00: mouth once [place] 00 daily Medical Branch sacubitriL- Yes 1{tbl} Take 1 Un winter valsartan 5-25 tablet by ity o f 49-51 mg 09:06: mouth in [place] tablet 22 the Medical morning Branch and 1 tablet in the evening. sacubitriL- 2023-0 Yes 1{tbl} Take 1 Un winter valsartan 5-25 tablet by ity o f 49-51 mg 09:06: mouth in [place] tablet 22 the Medical morning Branch and 1 tablet in the evening. sacubitriL- 2023-0 Yes 1{tbl} Take 1 Un winter valsartan 5-25 tablet by ity o f 49-51 mg 09:06: mouth in [place] tablet 22 the Medical morning Branch and 1 tablet in the evening. sacubitriL- 2023-0 Yes 1{tbl} Take 1 Un winter valsartan 5-25 tablet by ity o f 49-51 mg 09:06: mouth in [place] tablet 22 the Medical morning Branch and 1 tablet in the evening. sacubitriL- 2023-0 Yes 1{tbl} Take 1 Un winter valsartan 5-25 tablet by ity o f 49-51 mg 09:06: mouth in [place] tablet 22 the Medical morning Branch and 1 tablet in the evening. sacubitriL- 3-0 Yes 1{tbl} Take 1 Un winter valsartan 5-25 tablet by ity o f 49-51 mg 09:06: mouth in [place] tablet 22 the Medical morning Branch and 1 tablet in the evening. sacubitriL- 3-0 Yes 1{tbl} Take 1 Un winter valsartan 5-25 tablet by ity o f 49-51 mg 09:06: mouth in [place] tablet 22 the Medical morning Branch and 1 tablet in the evening. MOUNJARO 0 Yes Univers 2.5 mg/0.5 5-12 ity of mL PnIj 00:00: Medical Branch MOUNJARO 2022-0 Yes Univers 2.5 mg/0.5 5-12 ity of mL PnIj 00:00: Medical Branch MOUNJARO 2022-0 Yes Univers 2.5 mg/0.5 5-12 ity of mL PnIj 00:00: [facility] MOUNJARO 2022-0 Yes Univers 2.5 mg/0.5 5-12 ity of mL PnIj 00:00: [facility] Branch MOUNJARO 2022-0 Yes Univers 2.5 mg/0.5 5-12 ity of mL PnIj 00:00: Medical Branch MOUNJARO 3-0 Yes Univers 2.5 mg/0.5 5-12 ity of mL PnIj 00:00: [place] [facility] MOUNJARO 3-0 Yes Univers 2.5 mg/0.5 5-12 ity of mL PnIj 00:00: [place] [facility] JARDIANCE 3-0 Yes [id number] Take 1 U nivers 10 mg 4-03 tablet by ity of 00:00: mouth once [place] daily Medical Branch JARDIANCE 3-0 Yes [id number] Take 1 U nivers 10 mg 4-03 tablet by ity of 00:00: mouth once [place] daily Medical Branch JARDIANCE 2022-0 Yes [id number] Take 1 U nivers 10 mg 4-03 tablet by ity of 00:00: mouth once [place] daily Medical Branch JARDIANCE 3-0 Yes [id number] Take 1 U nivers 10 mg 4-03 tablet by ity of 00:00: mouth once [place] daily Medical Branch JARDIANCE 3-0 Yes [id number] Take 1 U nivers 10 mg 4-03 tablet by ity of 00:00: mouth once [place] daily Medical Branch JARDIANCE 3-0 Yes [id number] Take 1 U nivers 10 mg 4-03 tablet by ity of 00:00: mouth once [place] daily Medical Branch JARDIANCE 3-0 Yes [id number] Take 1 U nivers 10 mg 4-03 tablet by ity of 00:00: mouth once [place] daily Medical Branch JARDIANCE 2023-0 Yes [id number] Take 1 U nivers 10 mg 4-03 tablet by ity of 00:00: mouth once [place] daily Medical Branch JARDIANCE 3-0 Yes [id number] Take 1 U nivers 10 mg 4-03 tablet by ity of 00:00: mouth once [place] daily Medical Branch JARDIANCE 3-0 Yes [id number] Take 1 U nivers 10 mg 4-03 tablet by ity of 00:00: mouth once [place] daily Medical Branch JARDIANCE 3-0 Yes [id number] Take 1 U nivers 10 mg 4-03 tablet by ity of 00:00: mouth once [place] daily Medical Branch JARDIANCE 2023-0 Yes [id number] Take 1 U nivers 10 mg 4-03 tablet by ity of 00:00: mouth once daily Medical Branch JARDIANCE 2022-0 Yes [id number] Take 1 U nivers 10 mg 4-03 tablet by ity of 00:00: mouth once daily Medical Branch JARDIANCE 2022-0 Yes [id number] Take 1 U nivers 10 mg 4-03 tablet by ity of 00:00: mouth once daily Medical Branch JARDIANCE 2022-0 Yes [id number] Take 1 U nivers 10 mg 4-03 tablet by ity of 00:00: mouth once daily Medical Branch JARDIANCE 2022-0 Yes [id number] Take 1 U nivers 10 mg 4-03 tablet by ity of 00:00: mouth once [place] daily Medical Branch JARDIANCE 2022-0 Yes [id number] Take 1 U nivers 10 mg 4-03 tablet by ity of 00:00: mouth once daily Medical Branch JARDIANCE 2022-0 Yes [id number] Take 1 U nivers 10 mg 4-03 tablet by ity of 00:00: mouth once [place] daily Medical Branch JARDIANCE 2022-0 Yes [id number] Take 1 U nivers 10 mg 4-03 tablet by ity of 00:00: mouth once [place] daily Medical Branch JARDIANCE 2022-0 Yes [id number] Take 1 U nivers 10 mg 4-03 tablet by ity of 00:00: mouth once [place] daily Medical Branch JARDIANCE 2022-0 Yes [id number] Take 1 U nivers 10 mg 4-03 tablet by ity of 00:00: mouth once [place] daily Medical Branch JARDIANCE 2022-0 Yes [id number] Take 1 U nivers 10 mg 4-03 tablet by ity of 00:00: mouth once daily Medical Branch JARDIANCE 2022-0 Yes [id number] Take 1 U nivers 10 mg 4-03 tablet by ity of 00:00: mouth once [place] daily Medical Branch JARDIANCE 2022-0 Yes [id number] Take 1 U nivers 10 mg 4-03 tablet by ity of 00:00: mouth once daily Medical Branch JARDIANCE 2022-0 2023- No [id number] Take 1 Univers 10 mg 08-19 tablet by ity of 00:00: 00:00 mouth once [place] 00 :00 daily Medical Branch spironolact 2023-0 Yes [id number] 12.5mg Take 0.5 Univers one 25 mg 3-29 tablets by ity of tablet 00:00: mouth in [place] 00 the Medical morning. Branch spironolact 2023-0 Yes [id number] 12.5mg Take 0.5 Univers one 25 mg 3-29 tablets by ity of tablet 00:00: mouth in [place] 00 the Medical morning. Branch spironolact 2023-0 Yes [id number] 12.5mg Take 0.5 Univers one 25 mg 3-29 tablets by ity of tablet 00:00: mouth in [place] the Medical morning. Branch spironolact 2023-0 Yes [id number] 12.5mg Take 0.5 Univers one 25 mg 3-29 tablets by ity of tablet 00:00: mouth in [place] the Medical morning. Branch spironolact 2023-0 Yes [id number] 12.5mg Take 0.5 Univers one 25 mg 3-29 tablets by ity of tablet 00:00: mouth in [place] the Medical morning. Branch spironolact 2023-0 Yes [id number] 12.5mg Take 0.5 Univers one 25 mg 3-29 tablets by ity of tablet 00:00: mouth in [place] the Medical morning. Branch spironolact 2023-0 Yes [id number] 12.5mg Take 0.5 Univers one 25 mg 3-29 tablets by ity of tablet 00:00: mouth in [place] the Medical morning. Branch spironolact 2023-0 Yes [id number] 12.5mg Take 0.5 Univers one 25 mg 3-29 tablets by ity of tablet 00:00: mouth in [place] the Medical morning. Branch spironolact 2023-0 Yes [id number] 12.5mg Take 0.5 Univers one 25 mg 3-29 tablets by ity of tablet 00:00: mouth in [place] 00 the Medical morning. Branch spironolact 2023-0 Yes [id number] 12.5mg Take 0.5 Univers one 25 mg 3-29 tablets by ity of tablet 00:00: mouth in [place] 00 the Medical morning. Branch spironolact 2023-0 Yes [id number] 12.5mg Take 0.5 Univers one 25 mg 3-29 tablets by ity of tablet 00:00: mouth in [place] the Medical morning. Branch spironolact 2023-0 Yes [id number] 12.5mg Take 0.5 Univers one 25 mg 3-29 tablets by ity of tablet 00:00: mouth in [place] the Medical morning. Branch spironolact 2023-0 Yes [id number] 12.5mg Take 0.5 Univers one 25 mg 3-29 tablets by ity of tablet 00:00: mouth in [place] the Medical morning. Branch spironolact 2023-0 Yes [id number] 12.5mg Take 0.5 Univers one 25 mg 3-29 tablets by ity of tablet 00:00: mouth in [place] the Medical morning. Branch spironolact 2023-0 Yes [id number] 12.5mg Take 0.5 Univers one 25 mg 3-29 tablets by ity of tablet 00:00: mouth in [place] the Medical morning. Branch spironolact 2023-0 Yes [id number] 12.5mg Take 0.5 Univers one 25 mg 3-29 tablets by ity of tablet 00:00: mouth in [place] the Medical morning. Branch spironolact 2023-0 Yes [id number] 12.5mg Take 0.5 Univers one 25 mg 3-29 tablets by ity of tablet 00:00: mouth in [place] the Medical morning. Branch spironolact 2023-0 Yes [id number] 12.5mg Take 0.5 Univers one 25 mg 3-29 tablets by ity of tablet 00:00: mouth in [place] the Medical morning. Branch spironolact 2023-0 Yes [id number] 12.5mg Take 0.5 Univers one 25 mg 3-29 tablets by ity of tablet 00:00: mouth in [place] the Medical morning. Branch spironolact 2023-0 Yes [id number] 12.5mg Take 0.5 Univers one 25 mg 3-29 tablets by ity of tablet 00:00: mouth in [place] the Medical morning. Branch spironolact 2023-0 Yes [id number] 12.5mg Take 0.5 Univers one 25 mg 3-29 tablets by ity of tablet 00:00: mouth in [place] the Medical morning. Branch spironolact 2023-0 Yes [id number] 12.5mg Take 0.5 Univers one 25 mg 3-29 tablets by ity of tablet 00:00: mouth in [place] the Medical morning. Branch spironolact 2023-0 Yes [id number] 12.5mg Take 0.5 Univers one 25 mg 3-29 tablets by ity of tablet 00:00: mouth in [place] the Medical morning. Branch spironolact 2023-0 Yes [id number] 12.5mg Take 0.5 Univers one 25 mg 3-29 tablets by ity of tablet 00:00: mouth in [place] the Medical morning. Branch spironolact 2023-0 Yes [id number] 12.5mg Take 0.5 Univers one 25 mg 3-29 tablets by ity of tablet 00:00: mouth in [place] the Medical morning. Branch spironolact 2023-0 Yes [id number] 12.5mg Take 0.5 Univers one 25 mg 3-29 tablets by ity of tablet 00:00: mouth in [place] the Medical morning. Branch spironolact 2023-0 Yes [id number] 12.5mg Take 0.5 Univers one 25 mg 3-29 tablets by ity of tablet 00:00: mouth in [place] the Medical morning. Branch spironolact 2023-0 Yes [id number] 12.5mg Take 0.5 Univers one 25 mg 3-29 tablets by ity of tablet 00:00: mouth in [place] the Medical morning. Branch spironolact 2023-0 Yes [id number] 12.5mg Take 0.5 Univers one 25 mg 3-29 tablets by ity of tablet 00:00: mouth in [place] the Medical morning. Branch metformin 2022-0 Yes 500mg Take 500 Uni vers HCl 2-20 mg by ity of (METFORMIN 13:01: [place] 2 [place] ORAL[place] 33 (two) Medical times [place] daily with meals. sacubitriL- 3-0 Yes 1{tbl} Take 1 Un winter valsartan 2-20 tablet by ity o f 49-51 mg 13:01: mouth 2 [place] tablet 33 (two) Medical times [place] daily. glimepiride 2023-0 Yes 2mg Take 2 mg U nivers 2 mg tablet 2-20 by mouth ity of 13:01: daily with [place] [address] breakfast. Medical Branch metformin 2023-0 Yes 500mg Take 500 Uni vers HCl [...] by mouth ity of 13:01: daily with [place] [address] breakfast. Medical Branch metformin 3-0 Yes 500mg [...] by mouth ity of 13:01: daily with [place] [address] breakfast. Medical Branch metformin 3-0 Yes 500mg [...] by mouth ity of 13:01: daily with [place] [address] breakfast. Medical Branch metformin 2023-0 Yes 500mg Take 500 Uni vers HCl [...] by mouth ity of 13:01: daily with [place] [address] breakfast. Medical Branch metformin 2023-0 Yes 500mg Take 500 Uni vers HCl [...] by mouth ity of 13:01: daily with [place] [address] breakfast. Medical Branch metformin 3-0 Yes 500mg [...] by mouth ity of 13:01: daily with [place] [address] breakfast. Medical Branch metformin 3-0 Yes 500mg [...] by mouth ity of 13:01: daily with [place] 33 breakfast. Medical Branch metformin 3-0 Yes [...] by mouth ity of 13:01: daily with [place] [address] breakfast. Medical Branch metformin 2022-0 Yes 500mg [...] by mouth ity of 13:01: daily with [place] [address] breakfast. Medical Branch metformin 2022-0 Yes 500mg [...] by mouth ity of 13:01: daily with [place] [address] breakfast. Medical Branch metformin 3-0 Yes 500mg [...] by mouth ity of 13:01: daily with [place] [address] breakfast. Medical Branch metformin 3-0 Yes 500mg [...] by mouth ity of 13:01: daily with [place] [address] breakfast. Medical Branch metformin 3-0 Yes 500mg [...] by mouth ity of 13:01: daily with [place] [address] breakfast. Medical Branch metformin 3-0 Yes 500mg Take 500 Uni vers HCl 2-20 mg by ity of (METFORMIN 13:01: [place] 2 [place] (two) Medical times Branch daily with meals. glimepiride 2023-0 Yes 2mg Take 2 mg U nivers 2 mg tablet 2-20 by mouth ity of 13:01: daily with [place] [address] breakfast. Medical Branch metformin 2023-0 Yes 500mg Take 500 Uni vers HCl 2-20 mg by ity of (METFORMIN 13:01: [place] 2 [place] ORAL[place] 33 (two) Medical times Branch daily with meals. glimepiride 2023-0 Yes 2mg Take 2 mg U nivers 2 mg tablet 2-20 by mouth ity of 13:01: daily with [place] [address] breakfast. Medical Branch metformin 2023-0 Yes 500mg Take 500 Uni vers HCl 2-20 mg by ity of (METFORMIN 13:01: [place] 2 [place] (two) Medical times Branch daily with meals. glimepiride 2023-0 Yes 2mg Take 2 mg U nivers 2 mg tablet 2-20 by mouth ity of 13:01: daily with [place] [address] breakfast. Medical Branch metformin 2023-0 Yes 500mg Take 500 Uni vers HCl 2-20 mg by ity of (METFORMIN 13:01: mouth 2 [place]AL[place] 33 (two) Medical times Branch daily with meals. glimepiride 2023-0 Yes 2mg Take 2 mg U nivers 2 mg tablet 2-20 by mouth ity of 13:01: daily with [place] [address] breakfast. Medical Branch metformin 2023-0 Yes 500mg Take 500 Uni vers HCl 2-20 mg by ity of (METFORMIN 13:01: mouth 2 [place] 33 (two) Medical times Branch daily with meals. glimepiride 2023-0 Yes 2mg Take 2 mg U nivers 2 mg tablet 2-20 by mouth ity of 13:01: daily with [place] [address] breakfast. Medical Branch metformin 2023-0 Yes 500mg Take 500 Uni vers HCl 2-20 mg by ity of (METFORMIN 13:01: mouth 2 [place] 33 (two) Medical times Branch daily with meals. glimepiride 2023-0 Yes 2mg Take 2 mg U nivers 2 mg tablet 2-20 by mouth ity of 13:01: daily with [place] [address] breakfast. Medical Branch metformin 2023-0 Yes 500mg Take 500 Uni vers HCl 2-20 mg by ity of (METFORMIN 13:01: [place] 2 [place] 33 (two) Medical times Branch daily with meals. glimepiride 2023-0 Yes 2mg Take 2 mg U nivers 2 mg tablet 2-20 by mouth ity of 13:01: daily with [place] [address] breakfast. Medical Branch metformin 2023-0 Yes 500mg Take 500 Uni vers HCl [...] by mouth ity of 13:01: daily with [place] [address] breakfast. Medical Branch metformin 2023-0 Yes 500mg Take 500 Uni vers HCl [...] by mouth ity of 13:01: daily with [place] [address] breakfast. Medical Branch metformin 3-0 Yes 500mg [...] by mouth ity of 13:01: daily with [place] [address] breakfast. Medical Branch metformin 3-0 Yes 500mg [...] by mouth ity of 13:01: daily with [place] [address] breakfast. Medical Branch metformin 2022-0 Yes 500mg [...] by mouth ity of 13:01: daily with [place] [address] breakfast. Medical Branch metformin 2022-0 Yes 500mg [...] by mouth ity of 13:01: daily with [place] [id number] breakfast. Medical Branch metformin 2022-0 Yes 500mg [...] by mouth ity of 13:01: daily with [place] [address] breakfast. Medical Branch metformin 2022-0 Yes 500mg [...] by mouth ity of 13:01: daily with [place] [address] breakfast. Medical Branch metformin 2022-0 Yes 500mg [...] by mouth ity of 13:01: daily with [place] [address] breakfast. Medical Branch metformin 2022-0 Yes 500mg [...] by mouth ity of 13:01: daily with [place] [address] breakfast. Medical Branch metformin 3-0 Yes 500mg [...] by mouth ity of 13:01: daily with [place] [address] breakfast. Medical Branch metformin 3-0 Yes 500mg [...] by mouth ity of 13:01: daily with [place] [address] breakfast. Medical Branch metformin 3-0 Yes 500mg [...] by mouth ity of 13:01: daily with [place] [address] breakfast. Medical Branch metformin 3-0 Yes 500mg [...] by mouth ity of 13:01: daily with [place] [address] breakfast. Medical Branch metformin 3-0 Yes 500mg Take 500 [facility] vers HCl 2-20 mg by ity of (METFORMIN 13:01: mouth [place] ORAL[place] 33 (two) Medical times Branch daily with meals. sacubitriL- 2023-0 Yes 1{tbl} Take 1 Un winter valsartan 2-20 tablet by ity o f 49-51 mg 13:01: mouth 2 [place] tablet 33 (two) Medical times Branch daily. glimepiride 2022-0 Yes 2mg Take 2 mg U nivers 2 mg tablet 2-20 by mouth ity of 13:01: daily with [place] [address] breakfast. Medical Branch metformin 2022-0 Yes 500mg Take 500 [facility] vers HCl 2-20 mg by ity of (METFORMIN 13:01: mouth [place]AL[place] 33 (two) Medical times Branch daily with meals. sacubitriL- 2022-0 Yes 1{tbl} Take 1 Un winter valsartan 2-20 tablet by ity o f 49-51 mg 13:01: mouth 2 [place] tablet 33 (two) Medical times Branch daily. glimepiride 2022-0 Yes 2mg Take 2 mg U nivers 2 mg tablet 2-20 by mouth ity of 13:01: daily with [place] [address] breakfast. Medical Branch bumetanide 3-0 Yes 1mg TAKE 1 Unive rs 1 mg tablet 1-12 TABLET BY ity of 00:00: MOUTH IN [place] [address] THE Medical MORNING Branch AND 1 TABLET IN THE EVENING bumetanide 2022-0 Yes 1mg TAKE 1 Unive rs 1 mg tablet 1-12 TABLET BY ity of 00:00: MOUTH IN [place] THE Medical MORNING Branch AND 1 TABLET IN THE EVENING bumetanide 2022-0 Yes 1mg TAKE 1 Un[facility] rs 1 mg tablet 1-12 TABLET BY ity of 00:00: MOUTH IN [place] THE Medical MORNING Branch AND 1 TABLET IN THE EVENING bumetanide 2022-0 Yes 1mg TAKE 1 Unive rs 1 mg tablet 1-12 TABLET BY ity of 00:00: MOUTH IN [place] THE Medical MORNING Branch AND 1 TABLET IN THE EVENING bumetanide 3-0 Yes 1mg TAKE 1 Unive rs 1 mg tablet 1-12 TABLET BY ity of 00:00: MOUTH IN [place] THE Medical MORNING Branch AND 1 TABLET IN THE EVENING bumetanide 3-0 Yes 1mg TAKE 1 Un[facility] rs 1 mg tablet 1-12 TABLET BY ity of 00:00: MOUTH IN [place] THE Medical MORNING Branch AND 1 TABLET IN THE EVENING bumetanide 3-0 Yes 1mg TAKE 1 Unive rs 1 mg tablet 1-12 TABLET BY ity of 00:00: MOUTH IN [place] 00 THE Medical MORNING Branch AND 1 TABLET IN THE EVENING bumetanide 3-0 Yes 1mg TAKE 1 Unive rs 1 mg tablet 1-12 TABLET BY ity of 00:00: MOUTH IN [place] 00 THE Medical MORNING Branch AND 1 TABLET IN THE EVENING bumetanide 3-0 Yes 1mg TAKE 1 Unive rs 1 mg tablet 1-12 TABLET BY ity of 00:00: MOUTH IN [place] 00 THE Medical MORNING Branch AND 1 TABLET IN THE EVENING bumetanide 3-0 Yes 1mg TAKE 1 Unive rs 1 mg tablet 1-12 TABLET BY ity of 00:00: MOUTH IN [place] 00 THE Medical MORNING Branch AND 1 TABLET IN THE EVENING bumetanide 3-0 Yes 1mg TAKE 1 Unive rs 1 mg tablet 1-12 TABLET BY ity of 00:00: MOUTH IN [place] 00 THE Medical MORNING Branch AND 1 TABLET IN THE EVENING bumetanide 3-0 Yes 1mg TAKE 1 Unive rs 1 mg tablet 1-12 TABLET BY ity of 00:00: MOUTH IN [place] 00 THE Medical MORNING Branch AND 1 TABLET IN THE EVENING bumetanide 3-0 Yes 1mg TAKE 1 Unive rs 1 mg tablet 1-12 TABLET BY ity of 00:00: MOUTH IN [place] 00 THE Medical MORNING Branch AND 1 TABLET IN THE EVENING bumetanide 3-0 Yes 1mg TAKE 1 Unive rs 1 mg tablet 1-12 TABLET BY ity of 00:00: MOUTH IN [place] 00 THE Medical MORNING Branch AND 1 TABLET IN THE EVENING bumetanide 3-0 Yes 1mg TAKE 1 Unive rs 1 mg tablet 1-12 TABLET BY ity of 00:00: MOUTH IN [place] 00 THE Medical MORNING Branch AND 1 TABLET IN THE EVENING bumetanide 3-0 Yes 1mg TAKE 1 Unive rs 1 mg tablet 1-12 TABLET BY ity of 00:00: MOUTH IN [place] 00 THE Medical MORNING Branch AND 1 TABLET IN THE EVENING bumetanide 3-0 Yes 1mg TAKE 1 Unive rs 1 mg tablet 1-12 TABLET BY ity of 00:00: MOUTH IN [place] 00 THE Medical MORNING Branch AND 1 TABLET IN THE EVENING bumetanide 3-0 Yes 1mg TAKE 1 [facility]ive rs 1 mg tablet 1-12 TABLET BY ity of 00:00: MOUTH IN [place] 00 THE Medical MORNING Branch AND 1 TABLET IN THE EVENING bumetanide 3-0 Yes 1mg TAKE 1 Unive rs 1 mg tablet 1-12 TABLET BY ity of 00:00: MOUTH IN [place] 00 THE Medical MORNING Branch AND 1 TABLET IN THE EVENING bumetanide 3-0 Yes 1mg TAKE 1 [facility] rs 1 mg tablet 1-12 TABLET BY ity of 00:00: MOUTH IN [place] 00 THE Medical MORNING Branch AND 1 TABLET IN THE EVENING bumetanide 3-0 Yes 1mg TAKE 1 [facility] rs 1 mg tablet 1-12 TABLET BY ity of 00:00: MOUTH IN [place] 00 THE Medical MORNING Branch AND 1 TABLET IN THE EVENING bumetanide 3-0 Yes 1mg TAKE 1 [facility]ive rs 1 mg tablet 1-12 TABLET BY ity of 00:00: MOUTH IN [place] 00 THE Medical MORNING Branch AND 1 TABLET IN THE EVENING bumetanide 3-0 Yes 1mg TAKE 1 Unive rs 1 mg tablet 1-12 TABLET BY ity of 00:00: MOUTH IN [place] 00 THE Medical MORNING Branch AND 1 TABLET IN THE EVENING bumetanide 3-0 Yes 1mg TAKE 1 Unive rs 1 mg tablet 1-12 TABLET BY ity of 00:00: MOUTH IN [place] 00 THE Medical MORNING Branch AND 1 TABLET IN THE EVENING bumetanide 3-0 Yes 1mg TAKE 1 Unive rs 1 mg tablet 1-12 TABLET BY ity of 00:00: MOUTH IN [place] THE Medical MORNING Branch AND 1 TABLET IN THE EVENING bumetanide 3-0 Yes 1mg TAKE 1 Unive rs 1 mg tablet 1-12 TABLET BY ity of 00:00: MOUTH IN [place] 00 THE Medical MORNING Branch AND 1 TABLET IN THE EVENING bumetanide 3-0 Yes 1mg TAKE 1 Unive rs 1 mg tablet 1-12 TABLET BY ity of 00:00: MOUTH IN [place] 00 THE Medical MORNING Branch AND 1 TABLET IN THE EVENING bumetanide 3-0 Yes 1mg TAKE 1 Unive rs 1 mg tablet 1-12 TABLET BY ity of 00:00: MOUTH IN [place] 00 THE Medical MORNING Branch AND 1 TABLET IN THE EVENING bumetanide 3-0 Yes 1mg TAKE 1 Unive rs 1 mg tablet 1-12 TABLET BY ity of 00:00: MOUTH IN [place] 00 THE Medical MORNING Branch AND 1 TABLET IN THE EVENING bumetanide 2022-0 Yes 1mg TAKE 1 Un[facility] rs 1 mg tablet 1-12 TABLET BY ity of 00:00: MOUTH IN [place] 00 THE Medical MORNING Branch AND 1 TABLET IN THE EVENING bumetanide 2022-0 Yes 1mg TAKE 1 Unive rs 1 mg tablet 1-12 TABLET BY ity of 00:00: MOUTH IN [place] 00 THE Medical MORNING Branch AND 1 TABLET IN THE EVENING bumetanide 2022-0 Yes 1mg TAKE 1 Unive rs 1 mg tablet 1-12 TABLET BY ity of 00:00: MOUTH IN [place] 00 THE Medical MORNING Branch AND 1 TABLET IN THE EVENING bumetanide 2022-0 Yes 1mg TAKE 1 Unive rs 1 mg tablet 1-12 TABLET BY ity of 00:00: MOUTH IN [place] 00 THE Medical MORNING Branch AND 1 TABLET IN THE EVENING bumetanide 2022-0 Yes 1mg TAKE 1 Unive rs 1 mg tablet 1-12 TABLET BY ity of 00:00: MOUTH IN [place] 00 THE Medical MORNING Branch AND 1 TABLET IN THE EVENING bumetanide 2022-0 Yes 1mg TAKE 1 Unive rs 1 mg tablet 1-12 TABLET BY ity of 00:00: MOUTH IN [place] 00 THE Medical MORNING Branch AND 1 TABLET IN THE EVENING bumetanide 2022-0 Yes 1mg TAKE 1 Unive rs 1 mg tablet 1-12 TABLET BY ity of 00:00: MOUTH IN [place] 00 THE Medical MORNING Branch AND 1 TABLET IN THE EVENING bumetanide 2022-0 Yes 1mg TAKE 1 Unive rs 1 mg tablet 1-12 TABLET BY ity of 00:00: MOUTH IN [place] 00 THE Medical MORNING Branch AND 1 TABLET IN THE EVENING bumetanide 2022-0 Yes 1mg TAKE 1 Unive rs 1 mg tablet 1-12 TABLET BY ity of 00:00: MOUTH IN [place] 00 THE Medical MORNING Branch AND 1 TABLET IN THE EVENING bumetanide 2022-0 Yes 1mg TAKE 1 [facility]ive rs 1 mg tablet 1-12 TABLET BY ity of 00:00: MOUTH IN [place] 00 THE Medical MORNING Branch AND 1 TABLET IN THE EVENING NOEL 2021-05- No Take by [facility] ASPIRIN 0-11 10-11 mouth. ity of ORAL 13:40: 00:00 [place] 47 :00 Medical Branch carvediloL 2021-05- No 12.5mg Take 12.5 [facility] 12.5 mg 0-11 10-11 mg by ity of tablet 13:38: 00:00 mouth 2 [place] 58 :00 (two) Medical times Branch daily with meals. aspirin 81 2021-05 Yes 81mg Take 1 Unive rs mg EC 0-11 tablet by ity of tablet 00:00: mouth in [place] the Medical morning. Branch carvediloL 2021-05 Yes 6.25mg Take 1 Uni vers 6.25 mg 0-11 tablet by ity of tablet 00:00: mouth in [place] the Medical morning Branch and 1 tablet in the evening. Take with meals. meclizine 2021-05 Yes 25mg Take 1 Univer s 25 mg 0-11 tablet by ity of tablet 00:00: mouth in [place] the Medical morning Branch and 1 tablet at noon and 1 tablet in the evening. amiodarone 2021-05 Yes 200mg Take 1 [facility] ers 200 mg 0-11 tablet by ity of tablet 00:00: mouth in [place] the morning. Branch aspirin 81 2021-05 Yes 81mg Take 1 Unive rs mg EC 0-11 tablet by ity of tablet 00:00: mouth in [place] the Medical morning. Branch carvediloL 2021-05 Yes 6.25mg Take 1 Uni vers 6.25 mg 0-11 tablet by ity of tablet 00:00: mouth in [place] the Medical morning Branch and 1 tablet in the evening. Take with meals. meclizine 2021-05 Yes 25mg Take 1 Univer s 25 mg 0-11 tablet by ity of tablet 00:00: mouth in [place] the Medical morning Branch and 1 tablet at noon and 1 tablet in the evening. amiodarone 2021-05 Yes 200mg Take 1 [facility] ers 200 mg 0-11 tablet by ity of tablet 00:00: mouth in [place] the morning. Branch aspirin 81 2021-05 Yes 81mg Take 1 Unive rs mg EC 0-11 tablet by ity of tablet 00:00: mouth in [place] the Medical morning. Branch carvediloL 2021-05 Yes 6.25mg Take 1 Uni vers 6.25 mg 0-11 tablet by ity of tablet 00:00: mouth in [place] the Medical morning Branch and 1 tablet in the evening. Take with meals. meclizine 2021-05 Yes 25mg Take 1 Univer s 25 mg 0-11 tablet by ity of tablet 00:00: mouth in [place] the Medical morning Branch and 1 tablet at noon and 1 tablet in the evening. amiodarone 2021-05 Yes 200mg Take 1 [facility] ers 200 mg 0-11 tablet by ity of tablet 00:00: mouth in [place] the morning. Branch aspirin 81 2021-05 Yes 81mg Take 1 Unive rs mg EC 0-11 tablet by ity of tablet 00:00: mouth in [place] the morning. Branch carvediloL 2021-05 Yes 6.25mg Take 1 Uni vers 6.25 mg 0-11 tablet by ity of tablet 00:00: mouth in [place] the Medical morning Branch and 1 tablet in the evening. Take with meals. meclizine 2021-05 Yes 25mg Take 1 Univer s 25 mg 0-11 tablet by ity of tablet 00:00: mouth in [place] the Medical morning Branch and 1 tablet at noon and 1 tablet in the evening. amiodarone 2021-05 Yes 200mg Take 1 [facility] ers 200 mg 0-11 tablet by ity of tablet 00:00: mouth in [place] the morning. Branch aspirin 81 2021-05 Yes 81mg Take 1 Unive rs mg EC 0-11 tablet by ity of tablet 00:00: mouth in [place] the morning. Branch carvediloL 2021-05 Yes 6.25mg Take 1 [facility] vers 6.25 mg 0-11 tablet by ity of tablet 00:00: mouth in [place] the Medical morning Branch and 1 tablet in the evening. Take with meals. meclizine 2021-05 Yes 25mg Take 1 Univer s 25 mg 0-11 tablet by ity of tablet 00:00: mouth in [place] the Medical morning Branch and 1 tablet at noon and 1 tablet in the evening. amiodarone 2021- Yes 200mg Take 1 [facility] ers 200 mg 0-11 tablet by ity of tablet 00:00: mouth in [place] the Medical morning. Branch aspirin 81 2021-05 Yes 81mg Take 1 Unive rs mg EC 0-11 tablet by ity of tablet 00:00: mouth in [place] the Medical morning. Branch carvediloL 2021-05 Yes 6.25mg Take 1 [facility] vers 6.25 mg 0-11 tablet by ity of tablet 00:00: mouth in [place] the Medical morning Branch and 1 tablet in the evening. Take with meals. meclizine 2021-05 Yes 25mg Take 1 Univer s 25 mg 0-11 tablet by ity of tablet 00:00: mouth in [place] the Medical morning Branch and 1 tablet at noon and 1 tablet in the evening. amiodarone 2021-05 Yes 200mg Take 1 [facility] ers 200 mg 0-11 tablet by ity of tablet 00:00: mouth in [place] the morning. Branch aspirin 81 2021-05 Yes 81mg Take 1 Unive rs mg EC 0-11 tablet by ity of tablet 00:00: mouth in [place] the morning. Branch carvediloL 2021-05 Yes 6.25mg Take 1 [facility] vers 6.25 mg 0-11 tablet by ity of tablet 00:00: mouth in [place] the Medical morning Branch and 1 tablet in the evening. Take with meals. meclizine 2021-05 Yes 25mg Take 1 Univer s 25 mg 0-11 tablet by ity of tablet 00:00: mouth in [place] the Medical morning Branch and 1 tablet at noon and 1 tablet in the evening. amiodarone 2021-05 Yes 200mg Take 1 [facility] ers 200 mg 0-11 tablet by ity of tablet 00:00: mouth in [place] the morning. Branch aspirin 81 2021-05 Yes 81mg Take 1 Unive rs mg EC 0-11 tablet by ity of tablet 00:00: mouth in [place] the morning. Branch carvediloL 2021-05 Yes 6.25mg Take 1 [facility] vers 6.25 mg 0-11 tablet by ity of tablet 00:00: mouth in [place] the Medical morning Branch and 1 tablet in the evening. Take with meals. meclizine 2021-05 Yes 25mg Take 1 [facility]iver s 25 mg 0-11 tablet by ity of tablet 00:00: mouth in [place] the Medical morning Branch and 1 tablet at noon and 1 tablet in the evening. amiodarone 2021-05 Yes 200mg Take 1 [facility] ers 200 mg 0-11 tablet by ity of tablet 00:00: mouth in [place] the . Branch aspirin 81 2021-05 Yes 81mg Take 1 Unive rs mg EC 0-11 tablet by ity of tablet 00:00: mouth in [place] the . Branch carvediloL 2021-05 Yes 6.25mg Take 1 [facility] vers 6.25 mg 0-11 tablet by ity of tablet 00:00: mouth in [place] the Medical morning Branch and 1 tablet in the evening. Take with meals. meclizine 2021-05 Yes 25mg Take 1 Univer s 25 mg 0-11 tablet by ity of tablet 00:00: mouth in [place] the morning Branch and 1 tablet at noon and 1 tablet in the evening. amiodarone 2021-05 Yes 200mg Take 1 [facility] ers 200 mg 0-11 tablet by ity of tablet 00:00: mouth in [place] the morning. Branch aspirin 81 2021-05 Yes 81mg Take 1 Un[facility] rs mg EC 0-11 tablet by ity of tablet 00:00: mouth in [place] the . Branch carvediloL 2021-05 Yes 6.25mg Take 1 [facility] vers 6.25 mg 0-11 tablet by ity of tablet 00:00: mouth in [place] the morning Branch and 1 tablet in the evening. Take with meals. meclizine 2021-05 Yes 25mg Take 1 [facility]iver s 25 mg 0-11 tablet by ity of tablet 00:00: mouth in [place] the morning Branch and 1 tablet at noon and 1 tablet in the evening. amiodarone 2021-05 Yes 200mg Take 1 [facility] ers 200 mg 0-11 tablet by ity of tablet 00:00: mouth in [place] the . Branch aspirin 81 2021-05 Yes 81mg Take 1 Unive rs mg EC 0-11 tablet by ity of tablet 00:00: mouth in [place] the morning. Branch carvediloL 2021-05 Yes 6.25mg Take 1 [facility] vers 6.25 mg 0-11 tablet by ity of tablet 00:00: mouth in [place] the morning Branch and 1 tablet in the evening. Take with meals. meclizine 2021-05 Yes 25mg Take 1 [facility] s 25 mg 0-11 tablet by ity of tablet 00:00: mouth in [place] the Medical morning Branch and 1 tablet at noon and 1 tablet in the evening. amiodarone 2021-05 Yes 200mg Take 1 [facility] ers 200 mg 0-11 tablet by ity of tablet 00:00: mouth in [place] the morning. Branch aspirin 81 2021-05 Yes 81mg Take 1 Un[facility] rs mg EC 0-11 tablet by ity of tablet 00:00: mouth in [place] the morning. Branch carvediloL 2021-05 Yes 6.25mg Take 1 Uni vers 6.25 mg 0-11 tablet by ity of tablet 00:00: mouth in [place] the Medical morning Branch and 1 tablet in the evening. Take with meals. meclizine 2021-05 Yes 25mg Take 1 [facility] s 25 mg 0-11 tablet by ity of tablet 00:00: mouth in [place] the Medical morning Branch and 1 tablet at noon and 1 tablet in the evening. amiodarone 2021-05 Yes 200mg Take 1 [facility] ers 200 mg 0-11 tablet by ity of tablet 00:00: mouth in [place] the morning. Branch aspirin 81 2021-05 Yes 81mg Take 1 Unive rs mg EC 0-11 tablet by ity of tablet 00:00: mouth in [place] the morning. Branch carvediloL 2021-05 Yes 6.25mg Take 1 [facility] vers 6.25 mg 0-11 tablet by ity of tablet 00:00: mouth in [place] the morning Branch and 1 tablet in the evening. Take with meals. meclizine 2021-05 Yes 25mg Take 1 [facility]iver s 25 mg 0-11 tablet by ity of tablet 00:00: mouth in [place] the Medical morning Branch and 1 tablet at noon and 1 tablet in the evening. amiodarone 2021-05 Yes 200mg Take 1 [facility] ers 200 mg 0-11 tablet by ity of tablet 00:00: mouth in [place] the morning. Branch aspirin 81 2021-05 Yes 81mg Take 1 Un[facility] rs mg EC 0-11 tablet by ity of tablet 00:00: mouth in [place] the morning. Branch carvediloL 2021-05 Yes 6.25mg Take 1 [facility] vers 6.25 mg 0-11 tablet by ity of tablet 00:00: mouth in [place] the Medical morning Branch and 1 tablet in the evening. Take with meals. meclizine 2021-05 Yes 25mg Take 1 [facility] s 25 mg 0-11 tablet by ity of tablet 00:00: mouth in [place] the Medical morning Branch and 1 tablet at noon and 1 tablet in the evening. amiodarone 2021-05 Yes 200mg Take 1 [facility] ers 200 mg 0-11 tablet by ity of tablet 00:00: mouth in [place] the morning. Branch aspirin 81 2021-05 Yes 81mg Take 1 [facility] rs mg EC 0-11 tablet by ity of tablet 00:00: mouth in [place] the morning. Branch carvediloL 2021-05 Yes 6.25mg Take 1 [facility] vers 6.25 mg 0-11 tablet by ity of tablet 00:00: mouth in [place] the Medical morning Branch and 1 tablet in the evening. Take with meals. meclizine 2021-05 Yes 25mg Take 1 [facility] s 25 mg 0-11 tablet by ity of tablet 00:00: mouth in [place] the Medical morning Branch and 1 tablet at noon and 1 tablet in the evening. amiodarone 2021-05 Yes 200mg Take 1 [facility] ers 200 mg 0-11 tablet by ity of tablet 00:00: mouth in [place] the morning. Branch aspirin 81 2021-05 Yes 81mg Take 1 [facility] rs mg EC 0-11 tablet by ity of tablet 00:00: mouth in [place] the morning. Branch carvediloL 2021-05 Yes 6.25mg Take 1 [facility] vers 6.25 mg 0-11 tablet by ity of tablet 00:00: mouth in [place] the Medical morning Branch and 1 tablet in the evening. Take with meals. meclizine 2021-05 Yes 25mg Take 1 [facility] s 25 mg 0-11 tablet by ity of tablet 00:00: mouth in [place] the Medical morning Branch and 1 tablet at noon and 1 tablet in the evening. amiodarone 2021- Yes 200mg Take 1 [facility] ers 200 mg 0-11 tablet by ity of tablet 00:00: mouth in [place] the Medical morning. Branch aspirin 81 2021-05 Yes 81mg Take 1 [facility] rs mg EC 0-11 tablet by ity of tablet 00:00: mouth in [place] the Medical morning. Branch carvediloL 2021-05 Yes 6.25mg Take 1 [facility] vers 6.25 mg 0-11 tablet by ity of tablet 00:00: mouth in [place] the Medical morning Branch and 1 tablet in the evening. Take with meals. meclizine 2021-05 Yes 25mg Take 1 [facility] s 25 mg 0-11 tablet by ity of tablet 00:00: mouth in [place] the Medical morning Branch and 1 tablet at noon and 1 tablet in the evening. amiodarone 2021-05 Yes 200mg Take 1 [facility] ers 200 mg 0-11 tablet by ity of tablet 00:00: mouth in [place] the morning. Branch aspirin 81 2021-05 Yes 81mg Take 1 [facility] rs mg EC 0-11 tablet by ity of tablet 00:00: mouth in [place] the morning. Branch carvediloL 2021-05 Yes 6.25mg Take 1 [facility] vers 6.25 mg 0-11 tablet by ity of tablet 00:00: mouth in [place] the Medical morning Branch and 1 tablet in the evening. Take with meals. meclizine 2021-05 Yes 25mg Take 1 [facility] s 25 mg 0-11 tablet by ity of tablet 00:00: mouth in [place] the Medical morning Branch and 1 tablet at noon and 1 tablet in the evening. amiodarone 2021-05 Yes 200mg Take 1 [facility] ers 200 mg 0-11 tablet by ity of tablet 00:00: mouth in [place] the morning. Branch aspirin 81 2021-05 Yes 81mg Take 1 [facility] rs mg EC 0-11 tablet by ity of tablet 00:00: mouth in [place] the morning. Branch carvediloL 2021-05 Yes 6.25mg Take 1 [facility] vers 6.25 mg 0-11 tablet by ity of tablet 00:00: mouth in [place] the Medical morning Branch and 1 tablet in the evening. Take with meals. meclizine 2021-05 Yes 25mg Take 1 [facility] s 25 mg 0-11 tablet by ity of tablet 00:00: mouth in [place] the Medical morning Branch and 1 tablet at noon and 1 tablet in the evening. amiodarone 2021- Yes 200mg Take 1 [facility] ers 200 mg 0-11 tablet by ity of tablet 00:00: mouth in [place] [address] the morning. Branch aspirin 81 2021-05 Yes 81mg Take 1 Un[facility] rs mg EC 0-11 tablet by ity of tablet 00:00: mouth in [place] the morning. Branch carvediloL 2021-05 Yes 6.25mg Take 1 [facility] vers 6.25 mg 0-11 tablet by ity of tablet 00:00: mouth in [place] the Medical morning Branch and 1 tablet in the evening. Take with meals. meclizine 2021-05 Yes 25mg Take 1 [facility] s 25 mg 0-11 tablet by ity of tablet 00:00: mouth in [place] the Medical morning Branch and 1 tablet at noon and 1 tablet in the evening. amiodarone 2021-05 Yes 200mg Take 1 [facility] ers 200 mg 0-11 tablet by ity of tablet 00:00: mouth in [place] the morning. Branch aspirin 81 2021-05 Yes 81mg Take 1 [facility] rs mg EC 0-11 tablet by ity of tablet 00:00: mouth in [place] the morning. Branch carvediloL 2021-05 Yes 6.25mg Take 1 [facility] vers 6.25 mg 0-11 tablet by ity of tablet 00:00: mouth in [place] the Medical morning Branch and 1 tablet in the evening. Take with meals. meclizine 2021-05 Yes 25mg Take 1 [facility] s 25 mg 0-11 tablet by ity of tablet 00:00: mouth in [place] [address] the Medical morning Branch and 1 tablet at noon and 1 tablet in the evening. amiodarone 2021-05 Yes 200mg Take 1 [facility] ers 200 mg 0-11 tablet by ity of tablet 00:00: mouth in [place] the morning. Branch aspirin 2021-05 Yes 81mg Take 1 [facility] (NOEL LOW 0-11 tablet by ity of DOSE 00:00: mouth in [place] ASPIRIN) 81 00 the [facility] EC morning. Branch tablet carvediloL 2021-05 Yes 6.25mg Take 1 [facility] vers 6.25 mg 0-11 tablet by ity of tablet 00:00: mouth in [place] [address] the Medical morning Branch and 1 tablet in the evening. Take with meals. meclizine 2021-05 Yes 25mg Take 1 [facility] s 25 mg 0-11 tablet by ity of tablet 00:00: mouth in [place] 00 the Medical morning Branch and 1 tablet at noon and 1 tablet in the evening. amiodarone 2021-05 Yes 200mg Take 1 [facility] ers 200 mg 0-11 tablet by ity of tablet 00:00: mouth in [place] 00 the Medical morning. Branch aspirin 2021-05 Yes 81mg Take 1 [facility] (NOEL LOW 0-11 tablet by ity of DOSE 00:00: mouth in [place] ASPIRIN) 81 00 the Medical mg EC morning. Branch tablet carvediloL 2021-05 Yes 6.25mg Take 1 [facility] vers 6.25 mg 0-11 tablet by ity of tablet 00:00: mouth in [place] 00 the Medical morning Branch and 1 tablet in the evening. Take with meals. meclizine 2021-05 Yes 25mg Take 1 [facility] s 25 mg 0-11 tablet by ity of tablet 00:00: mouth in [place] 00 the Medical morning Branch and 1 tablet at noon and 1 tablet in the evening. amiodarone 2021-05 Yes 200mg Take 1 [facility] ers 200 mg 0-11 tablet by ity of tablet 00:00: mouth in [place] 00 the Medical morning. Branch aspirin 2021-05 Yes 81mg Take 1 [facility] (NOEL LOW 0-11 tablet by ity of DOSE 00:00: mouth in [place] ASPIRIN) 81 00 the Medical mg EC morning. Branch tablet carvediloL 2021-05 Yes 6.25mg Take 1 [facility] vers 6.25 mg 0-11 tablet by ity of tablet 00:00: mouth in [place] 00 the Medical morning Branch and 1 tablet in the evening. Take with meals. meclizine 2021-05 Yes 25mg Take 1 [facility] s 25 mg 0-11 tablet by ity of tablet 00:00: mouth in [place] 00 the Medical morning Branch and 1 tablet at noon and 1 tablet in the evening. amiodarone 2021-05 Yes 200mg Take 1 [facility] ers 200 mg 0-11 tablet by ity of tablet 00:00: mouth in [place] 00 the Medical morning. Branch aspirin 2021-05 Yes 81mg Take 1 [facility] (NOEL LOW 0-11 tablet by ity of DOSE 00:00: mouth in [place] ASPIRIN) 81 00 the Medical mg EC morning. Branch tablet carvediloL 2021-05 Yes 6.25mg Take 1 [facility] vers 6.25 mg 0-11 tablet by ity of tablet 00:00: mouth in [place] 00 the Medical morning Branch and 1 tablet in the evening. Take with meals. meclizine 2021-05 Yes 25mg Take 1 [facility] s 25 mg 0-11 tablet by ity of tablet 00:00: mouth in [place] 00 the Medical morning Branch and 1 tablet at noon and 1 tablet in the evening. amiodarone 2021-05 Yes 200mg Take 1 [facility] ers 200 mg 0-11 tablet by ity of tablet 00:00: mouth in [place] 00 the Medical morning. Branch aspirin 2021-05 Yes 81mg Take 1 [facility] (NOEL LOW 0-11 tablet by ity of DOSE 00:00: mouth in [place] ASPIRIN) 81 00 the Medical mg EC morning. Branch tablet carvediloL 2021-05 Yes 6.25mg Take 1 [facility] vers 6.25 mg 0-11 tablet by ity of tablet 00:00: mouth in [place] 00 the Medical morning Branch and 1 tablet in the evening. Take with meals. meclizine 2021-05 Yes 25mg Take 1 [facility] s 25 mg 0-11 tablet by ity of tablet 00:00: mouth in [place] the Medical morning Branch and 1 tablet at noon and 1 tablet in the evening. amiodarone 2021-05 Yes 200mg Take 1 [facility] ers 200 mg 0-11 tablet by ity of tablet 00:00: mouth in [place] the Medical morning. Branch aspirin 2021-05 Yes 81mg Take 1 [facility] (NOEL LOW 0-11 tablet by [facility] of DOSE 00:00: mouth in [place] ASPIRIN) 81 00 the Medical mg EC morning. Branch tablet carvediloL 2021-05 Yes 6.25mg Take 1 [facility] vers 6.25 mg 0-11 tablet by [facility] of tablet 00:00: mouth in [place] 00 the Medical morning Branch and 1 tablet in the evening. Take with meals. meclizine 2021-05 Yes 25mg Take 1 [facility] 25 mg 0-11 tablet by [facility] of tablet 00:00: mouth in [place] 00 the Medical morning Branch and 1 tablet at noon and 1 tablet in the evening. amiodarone 2021-05 Yes 200mg Take 1 [facility] ers 200 mg 0-11 tablet by [facility] of tablet 00:00: mouth in [place] 00 the Medical morning. Branch aspirin 2021-05 Yes 81mg Take 1 [facility] (NOEL LOW 0-11 tablet by ity of DOSE 00:00: mouth in [place] ASPIRIN) 81 00 the Medical mg EC morning. Branch tablet carvediloL 2021-05 Yes 6.25mg Take 1 [facility] vers 6.25 mg 0-11 tablet by [facility] of tablet 00:00: mouth in [place] 00 the Medical morning Branch and 1 tablet in the evening. Take with meals. meclizine 2021-05 Yes 25mg Take 1 [facility] 25 mg 0-11 tablet by [facility] of tablet 00:00: mouth in [place] 00 the Medical morning Branch and 1 tablet at noon and 1 tablet in the evening. amiodarone 2021-05 Yes 200mg Take 1 [facility] ers 200 mg 0-11 tablet by [facility] of tablet 00:00: mouth in [place] 00 the Medical morning. Branch aspirin 2021-05 Yes 81mg Take 1 [facility] (NOEL LOW 0-11 tablet by ity of DOSE 00:00: mouth in [place] ASPIRIN) 81 00 the Medical mg EC morning. Branch tablet carvediloL 2021-05 Yes 6.25mg Take 1 [facility] vers 6.25 mg 0-11 tablet by [facility] of tablet 00:00: mouth in [place] 00 the Medical morning Branch and 1 tablet in the evening. Take with meals. meclizine 2021-05 Yes 25mg Take 1 [facility] 25 mg 0-11 tablet by [facility] of tablet 00:00: mouth in [place] 00 the Medical morning Branch and 1 tablet at noon and 1 tablet in the evening. amiodarone 2021-05 Yes 200mg Take 1 [facility] ers 200 mg 0-11 tablet by [facility] of tablet 00:00: mouth in [place] 00 the Medical morning. Branch aspirin 2021-05 Yes 81mg Take 1 [facility] (NOEL LOW 0-11 tablet by ity of DOSE 00:00: mouth in [place] ASPIRIN) 81 00 the Medical mg EC morning. Branch tablet carvediloL 2021-05 Yes 6.25mg Take 1 [facility] vers 6.25 mg 0-11 tablet by [facility] of tablet 00:00: mouth in [place] 00 the Medical morning Branch and 1 tablet in the evening. Take with meals. meclizine 2021-05 Yes 25mg Take 1 [facility] 25 mg 0-11 tablet by [facility] of tablet 00:00: mouth in [place] 00 the Medical morning Branch and 1 tablet at noon and 1 tablet in the evening. amiodarone 2021-05 Yes 200mg Take 1 [facility] 200 mg 0-11 tablet by [facility] of tablet 00:00: mouth in [place] 00 the Medical morning. Branch aspirin 2021-05 Yes 81mg Take 1 [facility] (NOEL LOW 0-11 tablet by it[facility] of DOSE 00:00: mouth in [place] ASPIRIN) 81 00 the Medical mg EC morning. Branch tablet carvediloL 2021-05 Yes 6.25mg Take 1 [facility] vers 6.25 mg 0-11 tablet by [facility] of tablet 00:00: mouth in [place] 00 the Medical morning Branch and 1 tablet in the evening. Take with meals. meclizine 2021-05 Yes 25mg Take 1 [facility] 25 mg 0-11 tablet by [facility] of tablet 00:00: mouth in [place] 00 the Medical morning Branch and 1 tablet at noon and 1 tablet in the evening. amiodarone 2021-05 Yes 200mg Take 1 [facility] ers 200 mg 0-11 tablet by [facility] of tablet 00:00: mouth in [place] 00 the Medical morning. Branch aspirin 2021-05 Yes 81mg Take 1 [facility] (NOEL LOW 0-11 tablet by it[facility] of DOSE 00:00: mouth in [place] ASPIRIN) 81 00 the Medical mg EC morning. Branch tablet carvediloL 2021-05 Yes 6.25mg Take 1 [facility] vers 6.25 mg 0-11 tablet by [facility] of tablet 00:00: mouth in [place] 00 the Medical morning Branch and 1 tablet in the evening. Take with meals. meclizine 2021-05 Yes 25mg Take 1 [facility] 25 mg 0-11 tablet by [facility] of tablet 00:00: mouth in [place] 00 the Medical morning Branch and 1 tablet at noon and 1 tablet in the evening. amiodarone 2021-05 Yes 200mg Take 1 [facility] ers 200 mg 0-11 tablet by [facility] of tablet 00:00: mouth in [place] 00 the Medical morning. Branch aspirin 2021-05 Yes 81mg Take 1 [facility] (NOEL LOW 0-11 tablet by ity of DOSE 00:00: mouth in [place] ASPIRIN) 81 00 the Medical mg EC morning. Branch tablet carvediloL 2021-05 Yes 6.25mg Take 1 [facility] vers 6.25 mg 0-11 tablet by [facility] of tablet 00:00: mouth in [place] 00 the Medical morning Branch and 1 tablet in the evening. Take with meals. meclizine 2021-05 Yes 25mg Take 1 [facility] 25 mg 0-11 tablet by [facility] of tablet 00:00: mouth in [place] the Medical morning Branch and 1 tablet at noon and 1 tablet in the evening. amiodarone 2021-05 Yes 200mg Take 1 [facility] 200 mg 0-11 tablet by [facility] of tablet 00:00: mouth in [place] the morning. Branch aspirin 2021-05 Yes 81mg Take 1 [facility] (NOEL LOW 0-11 tablet by ity of DOSE 00:00: mouth in [place] ASPIRIN) 81 00 the Medical mg EC morning. Branch tablet carvediloL 2021-05 Yes 6.25mg Take 1 [facility] vers 6.25 mg 0-11 tablet by [facility] of tablet 00:00: mouth in [place] the Medical morning Branch and 1 tablet in the evening. Take with meals. meclizine 2021-05 Yes 25mg Take 1 [facility] 25 mg 0-11 tablet by [facility] of tablet 00:00: mouth in [place] the Medical morning Branch and 1 tablet at noon and 1 tablet in the evening. amiodarone 2021-05 Yes 200mg Take 1 [facility] ers 200 mg 0-11 tablet by [facility] of tablet 00:00: mouth in [place] the . Branch aspirin 2021-05 Yes 81mg Take 1 [facility] (NOEL LOW 0-11 tablet by ity of DOSE 00:00: mouth in [place] ASPIRIN) 81 00 the Medical mg EC morning. Branch tablet carvediloL 2021-05 Yes 6.25mg Take 1 [facility] vers 6.25 mg 0-11 tablet by [facility] of tablet 00:00: mouth in [place] the Medical morning Branch and 1 tablet in the evening. Take with meals. meclizine 2021-05 Yes 25mg Take 1 [facility] 25 mg 0-11 tablet by [facility] of tablet 00:00: mouth in [place] the Medical morning Branch and 1 tablet at noon and 1 tablet in the evening. amiodarone 2021-05 Yes 200mg Take 1 [facility] ers 200 mg 0-11 tablet by [facility] of tablet 00:00: mouth in [place] the morning. Branch aspirin 81 2021-05 Yes 81mg Take 1 [facility] mg EC 0-11 tablet by [facility] of tablet 00:00: mouth in [place] the morning. Branch carvediloL 2021-05 Yes 6.25mg Take 1 [facility] vers 6.25 mg 0-11 tablet by [facility] of tablet 00:00: mouth in [place] the morning Branch and 1 tablet in the evening. Take with meals. meclizine 2021-05 Yes 25mg Take 1 [facility] 25 mg 0-11 tablet by [facility] of tablet 00:00: mouth in [place] the morning Branch and 1 tablet at noon and 1 tablet in the evening. amiodarone 2021-05 Yes 200mg Take 1 [facility] ers 200 mg 0-11 tablet by [facility] of tablet 00:00: mouth in [place] the morning. Branch aspirin 81 2021-05 Yes 81mg Take 1 [facility] rs mg EC 0-11 tablet by [facility] of tablet 00:00: mouth in [place] the morning. Branch carvediloL 2021-05 Yes 6.25mg Take 1 [facility] vers 6.25 mg 0-11 tablet by [facility] of tablet 00:00: mouth in [place] the morning Branch and 1 tablet in the evening. Take with meals. meclizine 2021-05 Yes 25mg Take 1 [facility] 25 mg 0-11 tablet by [facility] of tablet 00:00: mouth in [place] the morning Branch and 1 tablet at noon and 1 tablet in the evening. amiodarone 2021-05 Yes 200mg Take 1 [facility] ers 200 mg 0-11 tablet by it[facility] of tablet 00:00: mouth in [place] the morning. Branch aspirin 81 2021-05 Yes 81mg Take 1 [facility] rs mg EC 0-11 tablet by ity of tablet 00:00: mouth in [place] the morning. Branch carvediloL 2021-05 Yes 6.25mg Take 1 [facility] vers 6.25 mg 0-11 tablet by [facility] of tablet 00:00: mouth in [place] the morning Branch and 1 tablet in the evening. Take with meals. meclizine 2021-05 Yes 25mg Take 1 [facility] 25 mg 0-11 tablet by [facility] of tablet 00:00: mouth in [place] the Medical morning Branch and 1 tablet at noon and 1 tablet in the evening. amiodarone 2021-05 Yes 200mg Take 1 [facility] 200 mg 0-11 tablet by it[facility] of tablet 00:00: mouth in [place] the morning. Branch aspirin 81 2021-05 Yes 81mg Take 1 [facility] mg EC 0-11 tablet by it[facility] of tablet 00:00: mouth in [place] the morning. Branch carvediloL 2021-05 Yes 6.25mg Take 1 [facility] vers 6.25 mg 0-11 tablet by [facility] of tablet 00:00: mouth in [place] the morning Branch and 1 tablet in the evening. Take with meals. meclizine 2021-05 Yes 25mg Take 1 [facility] 25 mg 0-11 tablet by [facility] of tablet 00:00: mouth in [place] the morning Branch and 1 tablet at noon and 1 tablet in the evening. amiodarone 2021-05 Yes 200mg Take 1 [facility] 200 mg 0-11 tablet by it[facility] of tablet 00:00: mouth in [place] the morning. Branch aspirin 81 2021-05 Yes 81mg Take 1 [facility] mg EC 0-11 tablet by it[facility] of tablet 00:00: mouth in [place] the morning. Branch carvediloL 2021-05 Yes 6.25mg Take 1 [facility] vers 6.25 mg 0-11 tablet by [facility] of tablet 00:00: mouth in [place] the morning Branch and 1 tablet in the evening. Take with meals. meclizine 2021-05 Yes 25mg Take 1 [facility] 25 mg 0-11 tablet by [facility] of tablet 00:00: mouth in [place] the Medical morning Branch and 1 tablet at noon and 1 tablet in the evening. amiodarone 2021-05 Yes 200mg Take 1 [facility] 200 mg 0-11 tablet by [facility] of tablet 00:00: mouth in [place] the morning. Branch aspirin 81 2021-05 Yes 81mg Take 1 [facility] rs mg EC 0-11 tablet by [facility] of tablet 00:00: mouth in [place] the morning. Branch carvediloL 2021-05 Yes 6.25mg Take 1 [facility] vers 6.25 mg 0-11 tablet by [facility] of tablet 00:00: mouth in [place] the morning Branch and 1 tablet in the evening. Take with meals. meclizine 2021-05 Yes 25mg Take 1 [facility] 25 mg 0-11 tablet by [facility] of tablet 00:00: mouth in [place] the Medical morning Branch and 1 tablet at noon and 1 tablet in the evening. amiodarone 2021-05 Yes 200mg Take 1 [facility] ers 200 mg 0-11 tablet by ity of tablet 00:00: mouth in [place] the morning. Branch aspirin 81 2021-05 Yes 81mg Take 1 [facility] rs mg EC 0-11 tablet by ity of tablet 00:00: mouth in [place] the morning. Branch carvediloL 2021-05 Yes 6.25mg Take 1 [facility] vers 6.25 mg 0-11 tablet by [facility] of tablet 00:00: mouth in [place] the Medical morning Branch and 1 tablet in the evening. Take with meals. meclizine 2021-05 Yes 25mg Take 1 [facility] 25 mg 0-11 tablet by [facility] of tablet 00:00: mouth in [place] the Medical morning Branch and 1 tablet at noon and 1 tablet in the evening. amiodarone 2021-05 Yes 200mg Take 1 [facility] ers 200 mg 0-11 tablet by ity of tablet 00:00: mouth in [place] the morning. Branch aspirin 81 2021-05 Yes 81mg Take 1 [facility] mg EC 0-11 tablet by ity of tablet 00:00: mouth in [place] the morning. Branch carvediloL 2021-05 Yes 6.25mg Take 1 [facility] vers 6.25 mg 0-11 tablet by [facility] of tablet 00:00: mouth in [place] the Medical morning Branch and 1 tablet in the evening. Take with meals. meclizine 2021-05 Yes 25mg Take 1 [facility] 25 mg 0-11 tablet by ity of tablet 00:00: mouth in [place] the Medical morning Branch and 1 tablet at noon and 1 tablet in the evening. amiodarone 2021-05 Yes 200mg Take 1 [facility] 200 mg 0-11 tablet by ity of tablet 00:00: mouth in [place] the morning. Branch aspirin 81 2021-05 Yes 81mg Take 1 [facility] mg EC 0-11 tablet by ity of tablet 00:00: mouth in [place] the morning. Branch carvediloL 2021-05 Yes 6.25mg Take 1 [facility] vers 6.25 mg 0-11 tablet by it[facility] of tablet 00:00: mouth in [place] the Medical morning Branch and 1 tablet in the evening. Take with meals. meclizine 2021-05 Yes 25mg Take 1 [facility] 25 mg 0-11 tablet by ity of tablet 00:00: mouth in [place] the Medical morning Branch and 1 tablet at noon and 1 tablet in the evening. amiodarone 2021-05 Yes 200mg Take 1 [facility] 200 mg 0-11 tablet by ity of tablet 00:00: mouth in [place] the morning. Branch aspirin 81 2021-05 Yes 81mg Take 1 [facility] mg EC 0-11 tablet by ity of tablet 00:00: mouth in [place] the morning. Branch carvediloL 2021-05 Yes 6.25mg Take 1 [facility] vers 6.25 mg 0-11 tablet by it[facility] of tablet 00:00: mouth in [place] the Medical morning Branch and 1 tablet in the evening. Take with meals. meclizine 2021-05 Yes 25mg Take 1 [facility] 25 mg 0-11 tablet by it[facility] of tablet 00:00: mouth in [place] the Medical morning Branch and 1 tablet at noon and 1 tablet in the evening. amiodarone 2021-05 Yes 200mg Take 1 [facility] ers 200 mg 0-11 tablet by it[facility] of tablet 00:00: mouth in [place] the morning. Branch aspirin 81 2021-05 Yes 81mg Take 1 [facility] rs mg EC 0-11 tablet by ity of tablet 00:00: mouth in [place] the morning. Branch carvediloL 2021-05 Yes 6.25mg Take 1 [facility] vers 6.25 mg 0-11 tablet by it[facility] of tablet 00:00: mouth in [place] the Medical morning Branch and 1 tablet in the evening. Take with meals. meclizine 2021-05 Yes 25mg Take 1 [facility] 25 mg 0-11 tablet by [facility] of tablet 00:00: mouth in [place] the Medical morning Branch and 1 tablet at noon and 1 tablet in the evening. amiodarone 2021- Yes 200mg Take 1 [facility] ers 200 mg 0-11 tablet by it[facility] of tablet 00:00: mouth in [place] the morning. Branch aspirin 81 2021-05 Yes 81mg Take 1 [facility] rs mg EC 0-11 tablet by ity of tablet 00:00: mouth in [place] the morning. Branch carvediloL 2021-05 Yes 6.25mg Take 1 [facility] vers 6.25 mg 0-11 tablet by it[facility] of tablet 00:00: mouth in [place] the morning Branch and 1 tablet in the evening. Take with meals. meclizine 2021-05 Yes 25mg Take 1 [facility] 25 mg 0-11 tablet by it[facility] of tablet 00:00: mouth in [place] the morning Branch and 1 tablet at noon and 1 tablet in the evening. amiodarone 2021-05 Yes 200mg Take 1 [facility] ers 200 mg 0-11 tablet by ity of tablet 00:00: mouth in [place] the morning. Branch aspirin 81 2021-05 Yes 81mg Take 1 [facility] rs mg EC 0-11 tablet by ity of tablet 00:00: mouth in [place] the morning. Branch carvediloL 2021-05 Yes 6.25mg Take 1 [facility] vers 6.25 mg 0-11 tablet by ity of tablet 00:00: mouth in [place] the morning Branch and 1 tablet in the evening. Take with meals. meclizine 2021-05 Yes 25mg Take 1 [facility] 25 mg 0-11 tablet by ity of tablet 00:00: mouth in [place] the morning Branch and 1 tablet at noon and 1 tablet in the evening. amiodarone 2021-05 Yes 200mg Take 1 [facility] ers 200 mg 0-11 tablet by ity of tablet 00:00: mouth in [place] the morning. Branch aspirin 81 2021-05 Yes 81mg Take 1 [facility] rs mg EC 0-11 tablet by ity of tablet 00:00: mouth in [place] the morning. Branch carvediloL 2021-05 Yes 6.25mg Take 1 [facility] vers 6.25 mg 0-11 tablet by ity of tablet 00:00: mouth in [place] the morning Branch and 1 tablet in the evening. Take with meals. meclizine 2021- Yes 25mg Take 1 [facility] 25 mg 0-11 tablet by ity of tablet 00:00: mouth in [place] the morning Branch and 1 tablet at noon and 1 tablet in the evening. amiodarone 2021- Yes 200mg Take 1 [facility] ers 200 mg 0-11 tablet by ity of tablet 00:00: mouth in [place] the morning. Branch aspirin 81 2021-05 Yes 81mg Take 1 [facility] rs mg EC 0-11 tablet by ity of tablet 00:00: mouth in [place] the morning. Branch carvediloL 2021-05 Yes 6.25mg Take 1 [facility] vers 6.25 mg 0-11 tablet by it[facility] of tablet 00:00: mouth in [place] the morning Branch and 1 tablet in the evening. Take with meals. meclizine 2021-05 Yes 25mg Take 1 [facility] 25 mg 0-11 tablet by ity of tablet 00:00: mouth in [place] the morning Branch and 1 tablet at noon and 1 tablet in the evening. amiodarone 2021-05 Yes 200mg Take 1 [facility] ers 200 mg 0-11 tablet by ity of tablet 00:00: mouth in [place] the morning. Branch aspirin 81 2021-05 Yes 81mg Take 1 [facility] rs mg EC 0-11 tablet by ity of tablet 00:00: mouth in [place] the . Branch carvediloL 2021-05 Yes 6.25mg Take 1 [facility] vers 6.25 mg 0-11 tablet by ity of tablet 00:00: mouth in [place] the morning Branch and 1 tablet in the evening. Take with meals. meclizine 2021-05 Yes 25mg Take 1 [facility] 25 mg 0-11 tablet by ity of tablet 00:00: mouth in [place] the morning Branch and 1 tablet at noon and 1 tablet in the evening. amiodarone 2021-05 Yes 200mg Take 1 [facility] ers 200 mg 0-11 tablet by ity of tablet 00:00: mouth in [place] the morning. Branch bumetanide Yes 1mg Take 1 [facility] 1 mg tablet 7-19 tablet by ity of 00:00: mouth in [place] the Medical morning Branch and 1 tablet in the evening. bumetanide 2021-0 Yes 1mg Take 1 [facility] 1 mg tablet 7-19 tablet by ity of 00:00: mouth in [place] the morning Branch and 1 tablet in the evening. bumetanide 2021-0 Yes 1mg Take 1 [facility] rs 1 mg tablet 7-19 tablet by ity of 00:00: mouth in [place] 00 the Medical morning Branch and 1 tablet in the evening. bumetanide 2022-0 Yes 1mg Take 1 [facility] rs 1 mg tablet 7-19 tablet by ity of 00:00: mouth in [place] 00 the Medical morning Branch and 1 tablet in the evening. bumetanide 2022-0 Yes 1mg Take 1 [facility] rs 1 mg tablet 7-19 tablet by ity of 00:00: mouth in [place] 00 the Medical morning Branch and 1 tablet in the evening. bumetanide 2022-0 Yes 1mg Take 1 [facility] rs 1 mg tablet 7-19 tablet by ity of 00:00: mouth in [place] 00 the Medical morning Branch and 1 tablet in the evening. bumetanide 2022-0 Yes 1mg Take 1 [facility] rs 1 mg tablet 7-19 tablet by ity of 00:00: mouth in [place] [address] the Medical morning Branch and 1 tablet in the evening. bumetanide 2022-0 Yes 1mg Take 1 [facility] rs 1 mg tablet 7-19 tablet by ity of 00:00: mouth in [place] [address] the Medical morning Branch and 1 tablet in the evening. bumetanide 2022-0 Yes 1mg Take 1 [facility] rs 1 mg tablet 7-19 tablet by ity of 00:00: mouth in [place] [address] the Medical morning Branch and 1 tablet in the evening. bumetanide 2022-0 Yes 1mg Take 1 [facility] rs 1 mg tablet 7-19 tablet by ity of 00:00: mouth in [place] [address] the Medical morning Branch and 1 tablet in the evening. bumetanide 2022-0 Yes 1mg Take 1 [facility] rs 1 mg tablet 7-19 tablet by ity of 00:00: mouth in [place] [address] the Medical morning Branch and 1 tablet in the evening. bumetanide 2022-0 Yes 1mg Take 1 [facility] rs 1 mg tablet 7-19 tablet by ity of 00:00: mouth in [place] [address] the Medical morning Branch and 1 tablet in the evening. bumetanide 2022-0 Yes 1mg Take 1 [facility] rs 1 mg tablet 7-19 tablet by ity of 00:00: mouth in [place] [address] the Medical morning Branch and 1 tablet in the evening. bumetanide 2022-0 Yes 1mg Take 1 [facility] rs 1 mg tablet 7-19 tablet by ity of 00:00: mouth in [place] 00 the Medical morning Branch and 1 tablet in the evening. bumetanide 2021-0 Yes 1mg Take 1 [facility] rs 1 mg tablet 7-19 tablet by ity of 00:00: mouth in [place] 00 the Medical morning Branch and 1 tablet in the evening. bumetanide 2021-0 Yes 1mg Take 1 [facility] rs 1 mg tablet 7-19 tablet by ity of 00:00: mouth in [place] 00 the Medical morning Branch and 1 tablet in the evening. bumetanide 2021-0 Yes 1mg Take 1 [facility] 1 mg tablet 7-19 tablet by ity of 00:00: mouth in [place] 00 the Medical morning Branch and 1 tablet in the evening. bumetanide 2021-0 Yes 1mg Take 1 [facility] rs 1 mg tablet 7-19 tablet by ity of 00:00: mouth in [place] 00 the Medical morning Branch and 1 tablet in the evening. bumetanide 2021-0 Yes 1mg Take 1 [facility] 1 mg tablet 7-19 tablet by ity of 00:00: mouth in [place] 00 the Medical morning Branch and 1 tablet in the evening. bumetanide 2021-0 Yes 1mg Take 1 [facility] 1 mg tablet 7-19 tablet by ity of 00:00: mouth in [place] 00 the Medical morning Branch and 1 tablet in the evening. bumetanide 2021-0 202- No 1mg Take 1 [facility] ers 1 mg tablet 7-19 -12 tablet by it y of 00:00: 00:00 mouth in [place] 00 :00 the Medical morning Branch and 1 tablet in the evening. Mupirocin 2 Mupirocin 2 2021-0 2022- No 1{appli BID Mupirocin % % 7-19 07-24 cation} 2 % 00:00: 00:00 00 :00 glimepiride 2021-0 Yes 2mg Take 2 mg U nivers 2 mg tablet 4-08 by mouth ity of 16:21: daily with [place] [address] breakfast. [facility] Branch glimepiride 2021-0 Yes 2mg Take 2 mg U nivers 2 mg tablet 4-08 by mouth ity of 16:21: daily with [place] [address] breakfast. Medical Branch glimepiride 2022-0 Yes 2mg Take 2 mg U nivers 2 mg tablet 4-08 by mouth ity of 16:21: daily with [place] [address] breakfast. Medical Branch glimepiride 2021-0 Yes 2mg Take 2 mg U nivers 2 mg tablet 4-08 by mouth ity of 16:21: daily with [place] [address] breakfast. Medical Branch glimepiride 2021-0 Yes 2mg Take 2 mg U nivers 2 mg tablet 4-08 by mouth ity of 16:21: daily with [place] [address] breakfast. Medical Branch glimepiride 2021-0 Yes 2mg Take 2 mg U nivers 2 mg tablet 4-08 by mouth ity of 16:21: daily with [place] [address] breakfast. Medical Branch glimepiride 2021-0 Yes 2mg Take 2 mg U nivers 2 mg tablet 4-08 by mouth ity of 16:21: daily with [place] [address] breakfast. Medical Branch glimepiride 2021-0 Yes 2mg Take 2 mg U nivers 2 mg tablet 4-08 by mouth ity of 16:21: daily with [place] [address] breakfast. Medical Branch glimepiride 2021-0 Yes 2mg Take 2 mg U nivers 2 mg tablet 4-08 by mouth ity of 16:21: daily with [place] [address] breakfast. Medical Branch glimepiride 2021-0 Yes 2mg Take 2 mg U nivers 2 mg tablet 4-08 by mouth ity of 16:21: daily with [place] [address] breakfast. Medical Branch glimepiride 2021-0 Yes 2mg Take 2 mg U nivers 2 mg tablet 4-08 by mouth ity of 16:21: daily with [place] [address] breakfast. Medical Branch glimepiride 2021-0 Yes 2mg Take 2 mg U nivers 2 mg tablet 4-08 by mouth ity of 16:21: daily with [place] [address] breakfast. Medical Branch glimepiride 2-0 Yes 2mg Take 2 mg U nivers 2 mg tablet 4-08 by mouth ity of 16:21: daily with [place] [address] breakfast. Medical Branch glimepiride 2-0 Yes 2mg Take 2 mg U nivers 2 mg tablet 4-08 by mouth ity of 16:21: daily with [place] [address] breakfast. Medical Branch glimepiride 2-0 Yes 2mg Take 2 mg U nivers 2 mg tablet 4-08 by mouth ity of 16:21: daily with [place] [address] breakfast. [facility] Branch glimepiride 0 Yes 2mg Take 2 mg U nivers 2 mg tablet 4-08 by mouth ity of 16:21: daily with [place] [address] breakfast. [facility] glimepiride 0 Yes 2mg Take 2 mg U nivers 2 mg tablet 4-08 by mouth ity of 16:21: daily with [place] [address] breakfast. [facility] Branch glimepiride 0 Yes 2mg Take 2 mg U nivers 2 mg tablet 4-08 by mouth ity of 16:21: daily with [place] [address] breakfast. [facility] glimepiride 0 Yes 2mg Take 2 mg U nivers 2 mg tablet 4-08 by mouth ity of 16:21: daily with [place] [address] breakfast. [facility] glimepiride 0 Yes 2mg Take 2 mg U nivers 2 mg tablet 4-08 by mouth ity of 16:21: daily with [place] [address] breakfast. [facility] glimepiride 0 Yes 2mg Take 2 mg U nivers 2 mg tablet 4-08 by mouth ity of 16:21: daily with [place] [address] breakfast. [facility] glimepiride 0 Yes 2mg Take 2 mg U nivers 2 mg tablet 4-08 by mouth ity of 16:21: daily with [place] [address] breakfast. [facility] glimepiride 0 Yes 2mg Take 2 mg U nivers 2 mg tablet 4-08 by mouth ity of 16:21: daily with [place] [address] breakfast. [facility] glimepiride 0 Yes 2mg Take 2 mg U nivers 2 mg tablet 4-08 by mouth ity of 16:21: daily with [place] [address] breakfast. [facility] spironolact 0 Yes [id number] 12.5mg Take 0.5 [facility] one 25 mg 4-08 tablets by ity of tablet 00:00: mouth [place] 00 daily. [facility] bumetanide 0 Yes [id number] 1mg Take 1 [facility] 1 mg tablet 4-08 tablet by ity of 00:00: mouth [place] 00 daily. [facility] empaglifloz 2021-0 Yes [id number] 10mg Take 1 [facility] in 10 mg 4-08 tablet by ity of 00:00: mouth [place] 00 daily. Medical Branch spironolact 2-0 Yes [id number] 12.5mg Take 0.5 [facility] one 25 mg 4-08 tablets by ity of tablet 00:00: mouth [place] 00 daily. Medical Branch empaglifloz 2-0 Yes [id number] 10mg Take 1 [facility] in 10 mg 4-08 tablet by ity of 00:00: mouth [place] 00 daily. Medical Branch spironolact 2-0 Yes [id number] 12.5mg Take 0.5 [facility] one 25 mg 4-08 tablets by ity of tablet 00:00: mouth [place] 00 daily. Medical Branch empaglifloz 2-0 Yes [id number] 10mg Take 1 [facility] in 10 mg 4-08 tablet by ity of 00:00: mouth [place] 00 daily. [facility] Branch spironolact 2021-0 Yes [id number] 12.5mg Take 0.5 [facility] one 25 mg 4-08 tablets by ity of tablet 00:00: mouth [place] 00 daily. Medical Branch empaglifloz 2-0 Yes [id number] 10mg Take 1 [facility] in 10 mg 4-08 tablet by ity of 00:00: mouth [place] 00 daily. [facility] Branch spironolact 2021-0 Yes [id number] 12.5mg Take 0.5 [facility] one 25 mg 4-08 tablets by ity of tablet 00:00: mouth [place] 00 daily. Medical Branch empaglifloz 2-0 Yes [id number] 10mg Take 1 [facility] in 10 mg 4-08 tablet by ity of 00:00: mouth [place] 00 daily. Medical Branch spironolact 2-0 Yes [id number] 12.5mg Take 0.5 [facility] one 25 mg 4-08 tablets by ity of tablet 00:00: mouth [place] 00 daily. Medical Branch empaglifloz 2-0 Yes [id number] 10mg Take 1 [facility] in 10 mg 4-08 tablet by ity of 00:00: mouth [place] 00 daily. [facility] spironolact 2-0 Yes [id number] 12.5mg Take 0.5 Univers one 25 mg 4-08 tablets by ity of tablet 00:00: mouth [place] 00 daily. Medical Branch empaglifloz 2-0 Yes [id number] 10mg Take 1 [facility] in 10 mg 4-08 tablet by ity of 00:00: mouth [place] 00 daily. [facility] spironolact 2021-0 Yes [id number] 12.5mg Take 0.5 [facility] one 25 mg 4-08 tablets by ity of tablet 00:00: mouth [place] 00 daily. Medical Branch empaglifloz 2-0 Yes [id number] 10mg Take 1 [facility] in 10 mg 4-08 tablet by ity of 00:00: mouth [place] 00 daily. [facility] spironolact 2021-0 Yes [id number] 12.5mg Take 0.5 [facility] one 25 mg 4-08 tablets by ity of tablet 00:00: mouth [place] 00 daily. [facility] empaglifloz 2021-0 Yes [id number] 10mg Take 1 [facility] in 10 mg 4-08 tablet by ity of 00:00: mouth [place] 00 daily. [facility] spironolact 2021-0 Yes [id number] 12.5mg Take 0.5 Univers one 25 mg 4-08 tablets by ity of tablet 00:00: mouth [place] 00 daily. [facility] empaglifloz 2021-0 Yes [id number] 10mg Take 1 [facility] in 10 mg 4-08 tablet by ity of 00:00: mouth [place] 00 daily. [facility] spironolact 2021-0 Yes [id number] 12.5mg Take 0.5 [facility] one 25 mg 4-08 tablets by ity of tablet 00:00: mouth [place] 00 daily. [facility] empaglifloz 2-0 Yes [id number] 10mg Take 1 [facility] in 10 mg 4-08 tablet by ity of 00:00: mouth [place] 00 daily. [facility] spironolact 2-0 Yes [id number] 12.5mg Take 0.5 [facility] one 25 mg 4-08 tablets by ity of tablet 00:00: mouth [place] 00 daily. [facility] empaglifloz 2-0 Yes [id number] 10mg Take 1 [facility] in 10 mg 4-08 tablet by ity of 00:00: mouth [place] 00 daily. [facility] spironolact 2-0 Yes [id number] 12.5mg Take 0.5 [facility] one 25 mg 4-08 tablets by ity of tablet 00:00: mouth [place] 00 daily. [facility] empaglifloz 2-0 Yes [id number] 10mg Take 1 [facility] in 10 mg 4-08 tablet by ity of 00:00: mouth [place] 00 daily. [facility] Branch spironolact 2-0 Yes [id number] 12.5mg Take 0.5 [facility] one 25 mg 4-08 tablets by ity of tablet 00:00: mouth [place] 00 daily. [facility] empaglifloz 2-0 Yes [id number] 10mg Take 1 [facility] in 10 mg 4-08 tablet by ity of 00:00: mouth [place] 00 daily. [facility] spironolact 2021-0 Yes [id number] 12.5mg Take 0.5 [facility] one 25 mg 4-08 tablets by ity of tablet 00:00: mouth [place] 00 daily. [facility] empaglifloz 2-0 Yes [id number] 10mg Take 1 [facility] in 10 mg 4-08 tablet by ity of 00:00: mouth [place] 00 daily. [facility] spironolact 2021-0 Yes [id number] 12.5mg Take 0.5 [facility] one 25 mg 4-08 tablets by ity of tablet 00:00: mouth [place] 00 daily. [facility] empaglifloz 2021-0 Yes [id number] 10mg Take 1 [facility] in 10 mg 4-08 tablet by ity of 00:00: mouth [place] 00 daily. [facility] spironolact 2021-0 Yes [id number] 12.5mg Take 0.5 [facility] one 25 mg 4-08 tablets by ity of tablet 00:00: mouth [place] 00 daily. [facility] empaglifloz 2-0 Yes [id number] 10mg Take 1 [facility] in 10 mg 4-08 tablet by ity of 00:00: mouth [place] 00 daily. [facility] spironolact 2-0 Yes [id number] 12.5mg Take 0.5 [facility] one 25 mg 4-08 tablets by ity of tablet 00:00: mouth [place] 00 daily. [facility] empaglifloz 2-0 Yes [id number] 10mg Take 1 [facility] in 10 mg 4-08 tablet by ity of 00:00: mouth [place] 00 daily. [facility] spironolact 2-0 Yes [id number] 12.5mg Take 0.5 [facility] one 25 mg 4-08 tablets by ity of tablet 00:00: mouth [place] 00 daily. [facility] empaglifloz 2-0 Yes [id number] 10mg Take 1 [facility] in 10 mg 4-08 tablet by ity of 00:00: mouth [place] 00 daily. [facility] spironolact 2-0 Yes [id number] 12.5mg Take 0.5 [facility] one 25 mg 4-08 tablets by ity of tablet 00:00: mouth [place] 00 daily. [facility] empaglifloz 2-0 Yes [id number] 10mg Take 1 [facility] in 10 mg 4-08 tablet by ity of 00:00: mouth [place] 00 daily. [facility] spironolact 2021-0 Yes [id number] 12.5mg Take 0.5 [facility] one 25 mg 4-08 tablets by ity of tablet 00:00: mouth [place] 00 daily. [facility] empaglifloz 2021-0 Yes [id number] 10mg Take 1 [facility] in 10 mg 4-08 tablet by ity of 00:00: mouth [place] 00 daily. [facility] spironolact 2021-0 Yes [id number] 12.5mg Take 0.5 [facility] one 25 mg 4-08 tablets by ity of tablet 00:00: mouth [place] 00 daily. [facility] empaglifloz 2021-0 Yes [id number] 10mg Take 1 [facility] in 10 mg 4-08 tablet by ity of 00:00: mouth [place] 00 daily. [facility] spironolact 2021-0 Yes [id number] 12.5mg Take 0.5 [facility] one 25 mg 4-08 tablets by ity of tablet 00:00: mouth [place] 00 daily. [facility] Branch empaglifloz 2-0 Yes [id number] 10mg Take 1 [facility] in 10 mg 4-08 tablet by ity of 00:00: mouth [place] 00 daily. [facility] spironolact 2-0 Yes [id number] 12.5mg Take 0.5 [facility] one 25 mg 4-08 tablets by ity of tablet 00:00: mouth [place] 00 daily. [facility] empaglifloz 2-0 Yes [id number] 10mg Take 1 [facility] in 10 mg 4-08 tablet by ity of 00:00: mouth [place] 00 daily. [facility] spironolact 2-0 Yes [id number] 12.5mg Take 0.5 [facility] one 25 mg 4-08 tablets by ity of tablet 00:00: mouth [place] 00 daily. [facility] empaglifloz 2-0 Yes [id number] 10mg Take 1 [facility] in 10 mg 4-08 tablet by ity of 00:00: mouth [place] 00 daily. [facility] spironolact 2021-0 Yes [id number] 12.5mg Take 0.5 [facility] one 25 mg 4-08 tablets by ity of tablet 00:00: mouth [place] 00 daily. [facility] empaglifloz 2021-0 Yes [id number] 10mg Take 1 [facility] in 10 mg 4-08 tablet by ity of 00:00: mouth [place] 00 daily. [facility] spironolact 2021-0 Yes [id number] 12.5mg Take 0.5 [facility] one 25 mg 4-08 tablets by ity of tablet 00:00: mouth [place] 00 daily. [facility] empaglifloz 2021-0 Yes [id number] 10mg Take 1 [facility] in 10 mg 4-08 tablet by ity of 00:00: mouth [place] 00 daily. Medical Branch spironolact 2021-0 Yes [id number] 12.5mg Take 0.5 [facility] one 25 mg 4-08 tablets by ity of tablet 00:00: mouth [place] 00 daily. [facility] empaglifloz 2021-0 Yes [id number] 10mg Take 1 [facility] in 10 mg 4-08 tablet by ity of 00:00: mouth [place] 00 daily. [facility] spironolact 2021-0 Yes [id number] 12.5mg Take 0.5 [facility] one 25 mg 4-08 tablets by ity of tablet 00:00: mouth [place] 00 daily. Medical Branch empaglifloz 2-0 Yes [id number] 10mg Take 1 [facility] in 10 mg 4-08 tablet by ity of 00:00: mouth [place] 00 daily. [facility] spironolact 2-0 Yes [id number] 12.5mg Take 0.5 [facility] one 25 mg 4-08 tablets by ity of tablet 00:00: mouth [place] 00 daily. [facility] empaglifloz 2-0 Yes [id number] 10mg Take 1 [facility] in 10 mg 4-08 tablet by ity of 00:00: mouth [place] 00 daily. [facility] spironolact 2-0 Yes [id number] 12.5mg Take 0.5 [facility] one 25 mg 4-08 tablets by ity of tablet 00:00: mouth [place] 00 daily. Medical [facility] empaglifloz 2021-0 Yes [id number] 10mg Take 1 [facility] in 10 mg 4-08 tablet by ity of 00:00: mouth [place] 00 daily. [facility] spironolact 2021-0 Yes [id number] 12.5mg Take 0.5 [facility] one 25 mg 4-08 tablets by ity of tablet 00:00: mouth [place] 00 daily. [facility] empaglifloz 2021-0 Yes [id number] 10mg Take 1 [facility] in 10 mg 4-08 tablet by ity of 00:00: mouth [place] 00 daily. [facility] empaglifloz 2021-0 Yes [id number] 10mg Take 1 [facility] in 10 mg 4-08 tablet by ity of 00:00: mouth [place] 00 daily. [facility] empaglifloz 2021-0 Yes [id number] 10mg Take 1 [facility] in 10 mg 4-08 tablet by ity of 00:00: mouth [place] 00 daily. Medical Branch empaglifloz 2021-0 2022- No [id number] 10mg Take 1 [facility] in 10 mg 4-08 -03 tablet by ity o f 00:00: 00:00 mouth [place] 00 :00 daily. [facility] empaglifloz 2021-0 2022- No [id number] 10mg Take 1 [facility] in 10 mg 4-08 04-03 tablet by ity o f 00:00: 00:00 mouth [place] 00 :00 daily. Medical Branch empaglifloz 2021-0 3- No [id number] 10mg Take 1 [facility] in 10 mg 4-08 -03 tablet by ity o f 00:00: 00:00 mouth [place] 00 :00 daily. Medical Branch spironolact 2021-0 3- No [id number] 12.5mg Take 0.5 [facility] one 25 mg 4-12 19-29 tablets by ity of tablet 00:00: 00:00 mouth [place] 00 :00 daily. Medical Branch bumetanide 2021-0 2- No [id number] 1mg Take 1 [facility] 1 mg tablet 08-24- tablet by it y of 00:00: 00:00 mouth [place] 00 :00 daily. Medical Branch metformin 2021-0 Yes 500mg Take [...] ASPIRIN 2-01 mouth. ity of ORAL 14:05: [place] [address] Medical Branch metformin 2021-0 Yes 500mg Take [...] by ity of tablet 14:05: mouth 2 [place] 56 (two) Medical times Branch daily with meals. NOEL 2-0 Yes Take by Univers ASPIRIN 2-01 mouth. ity of ORAL 14:05: [place] [address] Medical Branch metformin 2021-0 Yes 500mg Take [...] by ity of tablet 14:05: mouth 2 [place] 56 (two) Medical times Branch daily with meals. NOEL 2021-0 Yes Take by [facility] ASPIRIN 2-01 mouth. ity of ORAL 14:05: [place] [address] Medical Branch metformin 2021-0 Yes 500mg Take 500 Uni vers HCl 2-01 mg by ity of (METFORMIN 14:05: [place] (two) Medical times Branch daily with meals. sacubitriL- 2021-0 Yes 1{tbl} Take 1 Un winter valsartan 2-01 tablet by ity o f 49-51 mg 14:05: mouth 2 [place] tablet 56 (two) Medical times Branch daily. carvediloL 2021-0 Yes 12.5mg Take 12.5 Univers 12.5 mg 2-01 mg by ity of tablet 14:05: mouth 2 [place] 56 (two) Medical times Branch daily with meals. NOEL 2021-0 Yes Take by [facility] ASPIRIN 2-01 mouth. ity of ORAL 14:05: [place] [address] Medical Branch metformin 2021-0 Yes 500mg Take 500 Uni vers HCl 2-01 mg by ity of (METFORMIN 14:05: [place] (two) Medical times Branch daily with meals. sacubitriL- 2021-0 Yes 1{tbl} Take 1 Un winter valsartan 2-01 tablet by ity o f 49-51 mg 14:05: mouth 2 [place] tablet 56 (two) Medical times Branch daily. carvediloL 2021-0 Yes 12.5mg Take 12.5 Univers 12.5 mg 2-01 mg by ity of tablet 14:05: mouth 2 [place] 56 (two) Medical times Branch daily with meals. NOEL 2021-0 Yes Take by Univers ASPIRIN 2-01 mouth. ity of ORAL 14:05: [place] [address] Medical Branch metformin 2021-0 Yes 500mg Take [...] by ity of tablet 14:05: mouth 2 [place] 56 (two) Medical times Branch daily with meals. NOEL 2021-0 Yes Take by [facility] ASPIRIN 2-01 mouth. ity of ORAL 14:05: [place] [address] Medical Branch metformin 2021-0 Yes 500mg Take 500 [facility] vers HCl 2-01 mg by ity of (METFORMIN 14:05: [place] (two) Medical times Branch daily with meals. sacubitriL- 2021-0 Yes 1{tbl} Take 1 Un winter valsartan 2-01 tablet by ity o f 49-51 mg 14:05: mouth 2 [place] tablet 56 (two) Medical times Branch daily. carvediloL 2021-0 Yes 12.5mg Take 12.5 Univers 12.5 mg 2-01 mg by ity of tablet 14:05: mouth 2 [place] [address] (two) Medical times Branch daily with meals. NOEL 2021-0 Yes Take by [facility] ASPIRIN 2-01 mouth. ity of ORAL 14:05: [place] [address] Medical Branch metformin 2021-0 Yes 500mg Take 500 [facility] vers HCl 2-01 mg by ity of (METFORMIN 14:05: [place] (two) Medical times Branch daily with meals. sacubitriL- 2021-0 Yes 1{tbl} Take 1 Un winter valsartan 2-01 tablet by ity o f 49-51 mg 14:05: mouth 2 [place] tablet 56 (two) Medical times Branch daily. carvediloL 2021-0 Yes 12.5mg Take 12.5 Univers 12.5 mg 2-01 mg by ity of tablet 14:05: mouth 2 [place] 56 (two) Medical times Branch daily with meals. NOEL 2021-0 Yes Take by [facility] ASPIRIN 2-01 mouth. ity of ORAL 14:05: [place] [address] Medical Branch metformin 2021-0 Yes 500mg Take [...] ASPIRIN 2-01 mouth. ity of ORAL 14:05: [place] [address] Medical Branch metformin 2022-0 Yes 500mg Take [...] by ity of tablet 14:05: mouth 2 [place] 56 (two) Medical times Branch daily with meals. NOEL 2021-0 Yes Take by Univers ASPIRIN 2-01 mouth. ity of ORAL 14:05: [place] [address] Medical Branch metformin 2-0 Yes 500mg Take [...] 56 (two) Medical times Branch daily. metformin Yes 500mg Take 500 Uni vers [...] [Zanaflex] 00 30 tab, 3 Refill(s), Pharmacy: [facility], 154.94, cm, 03/22/21 13:32:00 CDT, Height, 119.545, kg, 03/22/21 13:32:00 CDT, Weight tizanidine 2020-05 Yes 4 mg = 1 Mem oria 4 MG Oral 1-04 tab, PO, l Tablet 18:45: Bedtime, # Savnaa nn [Zanaflex] 00 30 tab, 3 Refill(s), Pharmacy: [facility], 154.94, cm, 03/22/21 13:32:00 CDT, Height, 119.545, kg, 03/22/21 13:32:00 CDT, Weight tizanidine 2020-05 Yes 4 mg = 1 Mem oria 4 MG Oral 1-04 tab, PO, l Tablet 18:45: Bedtime, # [place] nn [Zanaflex] 00 30 tab, 3 Refill(s), Pharmacy: [facility], 154.94, cm, 03/22/21 13:32:00 CDT, Height, 119.545, kg, 03/22/21 13:32:00 CDT, Weight tizanidine 2020-05 Yes 4 mg = 1 Mem oria 4 MG Oral 1-04 tab, PO, l Tablet 18:45: Bedtime, # [place] nn [Zanaflex] 00 30 tab, 3 Refill(s), Pharmacy: [facility], 154.94, cm, 03/22/21 13:32:00 CDT, Height, 119.545, kg, 03/22/21 13:32:00 CDT, Weight tizanidine 2020- Yes 4 mg = 1 Mem oria 4 MG Oral 1-04 tab, PO, l Tablet 18:45: Bedtime, # [place] nn [Zanaflex] 00 30 tab, 3 Refill(s), Pharmacy: [facility], 154.94, cm, 03/22/21 13:32:00 CDT, Height, 119.545, kg, 03/22/21 13:32:00 CDT, Weight tizanidine 2020- Yes 4 mg = 1 Mem oria 4 MG Oral 1-04 tab, PO, l Tablet 18:45: Bedtime, # [place] nn [Zanaflex] 00 30 tab, 3 Refill(s), Pharmacy: [facility], 154.94, cm, 03/22/21 13:32:00 CDT, Height, 119.545, kg, 03/22/21 13:32:00 CDT, Weight tizanidine 2020- Yes 4 mg = 1 Mem oria 4 MG Oral 1-04 tab, PO, l Tablet 18:45: Bedtime, # [place] nn [Zanaflex] 00 30 tab, 3 Refill(s), Pharmacy: [facility], 154.94, cm, 03/22/21 13:32:00 CDT, Height, 119.545, kg, 03/22/21 13:32:00 CDT, Weight tizanidine 2020- Yes 4 mg = 1 Mem oria 4 MG Oral 1-04 tab, PO, l Tablet 18:45: Bedtime, # [place] nn [Zanaflex] 00 30 tab, 3 Refill(s), Pharmacy: [facility], 154.94, cm, 03/22/21 13:32:00 CDT, Height, 119.545, kg, 03/22/21 13:32:00 CDT, Weight tizanidine 2020-1 Yes 4 mg = 1 Mem oria 4 MG Oral 1-04 tab, PO, l Tablet 18:45: Bedtime, # [place] nn [Zanaflex] 00 30 tab, 3 Refill(s), Pharmacy: [facility], 154.94, cm, 03/22/21 13:32:00 CDT, Height, 119.545, kg, 03/22/21 13:32:00 CDT, Weight tizanidine 2020-05 Yes 4 mg = 1 Mem oria 4 MG Oral 1-04 tab, PO, l Tablet 18:45: Bedtime, # [place] nn [Zanaflex] 00 30 tab, 3 Refill(s), Pharmacy: [facility], 154.94, cm, 03/22/21 13:32:00 CDT, Height, 119.545, kg, 03/22/21 13:32:00 CDT, Weight tizanidine 2020-05 Yes 4 mg = 1 Mem oria 4 MG Oral 1-04 tab, PO, l Tablet 18:45: Bedtime, # [place] nn [Zanaflex] 00 30 tab, 3 Refill(s), Pharmacy: [facility], 154.94, cm, 03/22/21 13:32:00 CDT, Height, 119.545, kg, 03/22/21 13:32:00 CDT, Weight tizanidine 2020-05 Yes 4 mg = 1 Mem oria 4 MG Oral 1-04 tab, PO, l Tablet 18:45: Bedtime, # [place] nn [Zanaflex] 00 30 tab, 3 Refill(s), Pharmacy: [facility], 154.94, cm, 03/22/21 13:32:00 CDT, Height, 119.545, kg, 03/22/21 13:32:00 CDT, Weight tizanidine 2020-05 Yes 4 mg = 1 Mem oria 4 MG Oral 1-04 tab, PO, l Tablet 18:45: Bedtime, # [place] nn [Zanaflex] 00 30 tab, 3 Refill(s), Pharmacy: [facility], 154.94, cm, 03/22/21 13:32:00 CDT, Height, 119.545, kg, 03/22/21 13:32:00 CDT, Weight tizanidine 2020-05 Yes 4 mg = 1 Mem oria 4 MG Oral 1-04 tab, PO, l Tablet 18:45: Bedtime, # [place] nn [Zanaflex] 00 30 tab, 3 Refill(s), Pharmacy: [facility], 154.94, cm, 03/22/21 13:32:00 CDT, Height, 119.545, kg, 03/22/21 13:32:00 CDT, Weight Aspirin 2020-05 Yes 0 Memoria 0-06 Refill(s) l 19:55: [place] 00 Aspirin 2020-05 Yes 0 Memoria 0-06 Refill(s) l 19:55: [place] 00 Aspirin 2020-05 Yes 0 Memoria 0-06 Refill(s) l 19:55: [place] 00 Aspirin 2020-05 Yes 0 Memoria 0-06 Refill(s) l 19:55: Aspirin 2020-05 Yes 0 Memoria 0-06 Refill(s) l 19:55: [place] 00 Aspirin 2020-05 Yes 0 Memoria 0-06 Refill(s) l 19:55: [place] Aspirin 2020-05 Yes 0 Memoria 0-06 Refill(s) l 19:55: [place] 00 Aspirin 2020-05 Yes 0 Memoria 0-06 Refill(s) l 19:55: [place] 00 Aspirin 2020-05 Yes 0 Memoria 0-06 Refill(s) l 19:55: [place] 00 Aspirin 2020-05 Yes 0 Memoria 0-06 Refill(s) l 19:55: [place] Aspirin 2020-05 Yes 0 Memoria 0-06 Refill(s) l 19:55: [place] Aspirin 2020-05 Yes 0 Memoria 0-06 Refill(s) l 19:55: [place] Aspirin 2020-05 Yes 0 Memoria 0-06 Refill(s) l 19:55: [place] Aspirin 2020-05 Yes 0 Memoria 0-06 Refill(s) l 19:55: [place] Potassium 2020-05 Yes 0 Memoria Chloride 0-06 [...] l oral tablet 19:54: Q12H, # 60 [place] 00 tab, 0 Refill(s) Potassium 2020-05 Yes 0 Memoria Chloride 0-06 Refill(s) l (Eqv-Klor-C 19:54: Ferdinand n on M20) 20 00 mEq oral tablet, extended release Potassium 2020-05 Yes 0 Memoria Chloride 0-06 Refill(s) l ([employer]-Klor-C 19:54: [place] n on M20) 20 00 mEq oral tablet, extended release METFORMIN 2020-05 Yes METFORMIN Mem oria HYDROCHLORI 0-06 HYDROCHLOR l DE 500 MG 19:54: FABIEN 500 MG He rmann TABS 00 TABS, Refill(s) 0 carvedilol 2020-05 Yes 6.25 mg = Me moria 6.25 mg 0-06 1 tab, PO, l oral tablet 19:54: Q12H, # 60 [place] 00 tab, 0 Refill(s) METFORMIN 2020-05 Yes [...] l oral tablet 19:54: Q12H, # 60 [place] 00 tab, 0 Refill(s) Potassium 2020-05 Yes [...] l oral tablet 19:54: Q12H, # 60 [place] 00 tab, 0 Refill(s) Potassium 2020-05 Yes [...] l oral tablet 19:54: Q12H, # 60 [place] 00 tab, 0 Refill(s) Potassium 2020-05 Yes 0 Memoria Chloride 0-06 Refill(s) l ([employer]-Klor-C 19:54: [place] n on M20) 20 00 mEq oral tablet, extended release METFORMIN 2020-05 Yes METFORMIN Mem oria HYDROCHLORI 0-06 HYDROCHLOR l DE 500 MG 19:54: FABIEN 500 MG He [place] TABS 00 TABS, Refill(s) 0 carvedilol 2020-05 Yes 6.25 mg = Me moria 6.25 mg 0-06 1 tab, PO, l oral tablet 19:54: Q12H, # 60 [place] 00 tab, 0 Refill(s) Potassium 2020-05 Yes [...] l oral tablet 19:54: Q12H, # 60 [place] 00 tab, 0 Refill(s) Potassium 2020-05 Yes [...] l oral tablet 19:54: Q12H, # 60 [place] 00 tab, 0 Refill(s) Potassium 2020-05 Yes [...] l oral tablet 19:54: Q12H, # 60 [place] 00 tab, 0 Refill(s) Potassium 2020-05 Yes [...] MG / 0-06 Refill(s) l valsartan 19:53: [place] 51 MG Oral 00 Tablet [Entresto] GLIMEPIRIDE 2020-05 Yes GLIMEPIRID Memoria 2MG TAB 0-06 E 2MG TAB, l 19:53: Refill(s) [place] 00 0 sacubitril 2020-05 Yes 0 Memoria [...] 0-06 E 2MG TAB, l 19:53: Refill(s) [place] 00 0 sacubitril 2020-05 Yes 0 Memoria 49 MG / 0-06 Refill(s) l valsartan 19:53: [place] 51 MG Oral 00 Tablet [Entresto] GLIMEPIRIDE 2020-05 Yes GLIMEPIRID Memoria 2MG TAB 0-06 E 2MG TAB, l 19:53: Refill(s) [place] 00 0 sacubitril 2020-05 Yes 0 Memoria [...] MG / 0-06 Refill(s) l valsartan 19:53: [place] 51 MG Oral 00 Tablet [Entresto] GLIMEPIRIDE 2020-05 Yes GLIMEPIRID Memoria 2MG TAB 0-06 E 2MG TAB, l 19:53: Refill(s) [place] 00 0 sacubitril 2020-05 Yes 0 Memoria 49 MG / 0-06 Refill(s) l valsartan 19:53: [place] 51 MG Oral 00 Tablet [Entresto] GLIMEPIRIDE 2020-05 Yes GLIMEPIRID Memoria 2MG TAB 0-06 E 2MG TAB, l 19:53: Refill(s) [place]asi 00 0 sacubitril 2020-05 Yes 0 Memoria 49 MG / 0-06 Refill(s) l valsartan 19:53: Kasi 51 MG Oral 00 Tablet [Entresto] GLIMEPIRIDE 2020-05 Yes GLIMEPIRID Memoria 2MG TAB 0-06 E 2MG TAB, l 19:53: Refill(s) [place] 00 0 sacubitril 2020-05 Yes 0 Memoria 49 MG / 0-06 Refill(s) l valsartan 19:53: Kasi 51 MG Oral 00 Tablet [Entresto] GLIMEPIRIDE 2020-05 Yes GLIMEPIRID Memoria 2MG TAB 0-06 E 2MG TAB, l 19:53: Refill(s) [place]asi 00 0 sacubitril 2020-05 Yes 0 Memoria 49 MG / 0-06 Refill(s) l valsartan 19:53: [place] 51 MG Oral 00 Tablet [Entresto] Furosemide 2020-05 Yes 40 mg = 1 Me moria 40 MG Oral 0-06 tab, PO, l Tablet 19:52: Daily, # [place] 00 30 tab, 0 Refill(s) Furosemide 2020-05 [...] tab, PO, l Tablet 19:52: Daily, # [place] 00 30 tab, 0 Refill(s) Furosemide 2020-05 Yes 40 mg = 1 Me moria 40 MG Oral 0-06 tab, PO, l Tablet 19:52: Daily, # Kasi 00 30 tab, 0 Refill(s) Furosemide 2020-05 Yes 40 mg = 1 Me moria 40 MG Oral 0-06 tab, PO, l Tablet 19:52: Daily, # [place] 00 30 tab, 0 Refill(s) Furosemide 2020-05 Yes 40 mg = 1 Me moria 40 MG Oral 0-06 tab, PO, l Tablet 19:52: Daily, # [place] 00 30 tab, 0 Refill(s) Furosemide 2020-05 Yes 40 mg = 1 Me moria 40 MG Oral 0-06 tab, PO, l Tablet 19:52: Daily, # [place] 00 30 tab, 0 Refill(s) Furosemide 2020-05 Yes 40 mg = 1 Me moria 40 MG Oral 0-06 tab, PO, l Tablet 19:52: Daily, # [place]asi 00 30 tab, 0 Refill(s) Furosemide 2020-05 Yes 40 mg = 1 Me moria 40 MG Oral 0-06 tab, PO, l Tablet 19:52: Daily, # [place] 00 30 tab, 0 Refill(s) Furosemide 2020-05 [...] tab, PO, l Tablet 19:52: Daily, # [place] 00 30 tab, 0 Refill(s) Furosemide 2020-05 Yes 40 mg = 1 Me moria 40 MG Oral 0-06 tab, PO, l Tablet 19:52: Daily, # Kasi 00 30 tab, 0 Refill(s) Iron 325 Iron [...] MG 00:00: 00 Iron 325 Iron 325 2021-0 No 1{table QD Iron 325 (65 Fe) MG (65 Fe) MG 4-28 t} (65 Fe) MG 00:00: 00 Iron 325 Iron 325 0 No 1{table QD Iron 325 (65 Fe) MG (65 Fe) MG 4-28 t} (65 Fe) MG 00:00: 00 Iron 325 Iron 325 0 No 1{table QD Iron 325 (65 Fe) MG (65 Fe) MG 4-28 t} (65 Fe) MG 00:00: 00 Iron 325 Iron 325 0 No 1{table QD Iron 325 (65 Fe) MG (65 Fe) MG 4-28 t} (65 Fe) MG 00:00: 00 Iron 325 Iron 325 No 1{table QD Iron 325 (65 Fe) MG (65 Fe) MG -28 t} (65 Fe) MG 00:00: 00 Iron 325 Iron 325 0 No 1{table QD Iron 325 (65 Fe) MG (65 Fe) MG 4-28 t} (65 Fe) MG 00:00: 00 Iron 325 Iron 325 No 1{table QD Iron 325 (65 Fe) MG (65 Fe) MG 4-28 t} (65 Fe) MG 00:00: 00 Iron 325 Iron 325 No 1{table QD Iron 325 (65 Fe) MG (65 Fe) MG -28 t} (65 Fe) MG 00:00: 00 Iron 325 Iron 325 0 No 1{table QD Iron 325 (65 Fe) MG (65 Fe) MG 4-28 t} (65 Fe) MG 00:00: 00 Iron 325 Iron 325 0 No 1{table QD Iron 325 (65 Fe) MG (65 Fe) MG 4-28 t} (65 Fe) MG 00:00: 00 Iron 325 Iron 325 0 No 1{table QD Iron 325 (65 Fe) MG (65 Fe) MG 4-28 t} (65 Fe) MG 00:00: 00 Iron 325 Iron 325 0 No 1{table QD Iron 325 (65 Fe) MG (65 Fe) MG 4-28 t} (65 Fe) MG 00:00: 00 Iron 325 Iron 325 0 No 1{table QD Iron 325 (65 Fe) [...] route. hours by oral route. Blood Blood 2018- Yes [facility] as Common Glucose Glucose 2-03 Hernandez directed Spir it Monitor Monitor 00:00: (DISPENSE - [facility] [address] GLUCOSE [facility] TO INSURANCE) Lancets Lancets 2019- Yes [place] as Commo n 2-03 Hernandez directed Spirit 00:00: (dispense - [facility] [address] formulary [facility] insurance) Center Blood Blood 2018-05 Yes [place] as Common Glucose Glucose 2-03 Hernandez directed Spir it Test Strip Test Strip 00:00: (DISPENSE - [facility] [address] GLUCOSE [facility] TEST Medical STRIPS Center FORMULARY TO INSURANCE) Blood Blood 2018-05 No [...] Lancets - 2-03 00:00: 00 Blood Blood 2018- No Blood Glucose Glucose 2-03 Glucose Test Strip Test Strip 00:00: Test Strip 00 Blood Blood 2018- No Blood Glucose Glucose 2-03 Glucose Monitor Monitor 00:00: Monitor 00 Lancets - Lancets - 2019- No Lancets - 2-03 00:00: 00 albuterol 2017-0 Yes 2.5mg Inhale 3 Uni [...] every 4 ity of mL (0.083 00:00: ([facility]) [place] %) 00 hours. May Medical nebulizer [...] every 4 ity of mL (0.083 00:00: ([facility]) [place] %) 00 hours. May Medical nebulizer also Branch solution nebulize one extra every 6 hours. albuterol 2017-0 Yes 2.5mg Inhale 3 Uni vers 2.5 mg /3 3-22 mL every 4 ity of mL (0.083 00:00: ([facility]) [place] %) 00 hours. May Medical nebulizer also Branch solution nebulize one extra every 6 hours. albuterol 2017-0 Yes 2.5mg Inhale 3 Uni vers 2.5 mg /3 3-22 mL every 4 ity of mL (0.083 00:00: ([facility]) [place] %) 00 hours. May Medical nebulizer also Branch solution nebulize one extra every 6 hours. albuterol 2017-0 Yes 2.5mg Inhale 3 Uni vers 2.5 mg /3 3-22 mL every 4 ity of mL (0.083 00:00: ([facility]) [place] %) 00 hours. May Medical nebulizer [...] every 4 ity of mL (0.083 00:00: ([facility]) [place] %) 00 hours. May Medical nebulizer [...] solution nebulize one extra every 6 hours. Noel Noel No 1{table QD Noel Aspirin [...] 20 Arleen ER 20 MEQ MEQ MEQ Jardiance Jardiance No 1{table QD Jardiance [...] HCl 200 MG t} HCl 200 MG Furosemide Furosemide No QD Furosemide 40 [...] Chloride Arleen ER 20 Arleen ER 20 Alreen ER 20 MEQ MEQ MEQ Furosemide Furosemide [...] Glimepiride Yes Kilo 1 tablet Common [facility] Noel Noel Yes Kilo 1 tablet Common Aspirin EC Aspirin EC [facility] Low Dose Low Dose [facility] Lisinopril Lisinopril Yes Kilo 1 tablet Common [facility] Furosemide Furosemide Yes Kilo 1 tablet Common [facility] in am [facility] Coreg Coreg Yes Kilo 1 tablet Common [facility] Metformin Metformin Yes Kilo 1 tablet Common HCl HCl Hernandez with meals [facility] Entresto Entresto Yes Kilo 1 tablet C ommon 49/51mg 49/51mg [facility] metFORMIN metFORMIN No metFORMIN HCl 500 MG HCl 500 MG HCl 500 MG carvedilol carvedilol No carvedilol [place] 6.25 mg 6.25 mg 6.25 mg da tablet TAKE tablet TAKE tablet Medical 1 TABLET BY 1 TABLET BY TAKE 1 Group MOUTH TWICE MOUTH TWICE TABLET BY DAILY DAILY MOUTH TWICE DAILY Amiodarone Amiodarone No 1{table QD Amiodarone HCl [...] 12.5 MG t_as_ne HCl 12.5 eded} MG clindamycin clindamycin No clindamyci [place] HCl 150 mg HCl 150 mg n HCl 150 da capsule capsule mg capsule Med ical TAKE FOUR TAKE FOUR TAKE FOUR Group CAPSULES BY CAPSULES BY CAPSULES MOUTH 30 60 MOUTH 30 60 BY MOUTH MINUTES MINUTES 30 60 PRIOR TO PRIOR TO MINUTES DENTAL DENTAL PRIOR TO APPOINTMENT APPOINTMENT DENTAL APPOINTMEN T Klor-Con 10 Klor-Con 10 No 1{table QD [...] 6.25 MG 6.25 MG 6.25 MG Entresto 49 Entresto 49 No Entresto [place] mg-51 mg mg-51 mg 49 mg-51 da tablet tablet mg tablet Medica l Group Furosemide Furosemide No QD Furosemide 40 MG [...] 10 MG 10 MG t} 10 MG furosemide furosemide No furosemide [place] 40 mg 40 mg 40 mg da tablet TAKE tablet TAKE tablet Medical 1 TABLET BY 1 TABLET BY TAKE 1 Group MOUTH EVERY MOUTH EVERY TABLET BY 48 HOURS 48 HOURS MOUTH EVERY 48 HOURS traMADol traMADol No traMADol HCl 50 MG [...] 2 MG 2 MG e 2 MG glimepiride glimepiride No glimepirid [place] 2 mg tablet 2 mg tablet e 2 mg da TAKE 1 TAKE 1 tablet Medical TABLET BY TABLET BY TAKE 1 Adela up MOUTH ONCE MOUTH ONCE TABLET BY DAILY FOR DAILY FOR MOUTH ONCE 90 DAYS 90 DAYS DAILY FOR 90 DAYS Noel Noel No 1{table QD Noel Aspirin [...] 12.5 MG t_as_ne HCl 12.5 eded} MG ipratropium ipratropium No ipratropiu [place] bromide [...] 49/51mg 49/51mg t} 49/51mg 49/51mg 49/51mg 49/51mg iron 65 mg iron 65 mg No iron 65 mg [place] tablet Take tablet Take tablet da by oral by oral Take by Medica l route. route. oral Group route. Coreg 6.25 Coreg 6.25 No 1{table BID [...] MEQ 10 MEQ t} 10 10 MEQ levofloxaci levofloxaci No levofloxac [place] n 500 mg n 500 mg in 500 mg da tablet TAKE tablet TAKE tablet Medical 1 TABLET BY 1 TABLET BY TAKE 1 Group MOUTH EVERY MOUTH EVERY TABLET BY DAY FOR 7 DAY FOR 7 MOUTH DAYS DAYS EVERY DAY FOR 7 DAYS Meclizine Meclizine No 1{table TID Meclizine HCl [...] DAILY TIMES DAILY MOUTH THREE TIMES DAILY Glimepiride Glimepiride No 1{table QD Glimepirid 2 MG 2 MG t} e 2 MG Potassium Potassium No Potassium Chloride Chloride Chloride Arleen ER 20 Arleen ER 20 Arlene ER 20 MEQ MEQ MEQ Klor-Con 10 [...] MG 2 MG t} e 2 MG metformin metformin No metformin [place] 500 mg 500 mg 500 mg da tablet TAKE tablet TAKE tablet Medical 1 TABLET BY 1 TABLET BY TAKE 1 Group MOUTH TWICE MOUTH TWICE TABLET BY DAILY WITH DAILY WITH MOUTH MEALS FOR MEALS FOR TWICE 90 DAYS 90 DAYS DAILY WITH MEALS FOR 90 DAYS Meclizine Meclizine No 1{table TID Meclizine HCl 12.5 MG HCl 12.5 MG t_as_ne HCl 12.5 eded} MG Klor-Con 10 Klor-Con 10 No 1{table QD Klor-Con 10 MEQ 10 MEQ t} 10 10 MEQ Coreg 6.25 Coreg 6.25 No 1{table BID Coreg 6.25 MG MG t} MG metFORMIN metFORMIN No metFORMIN HCl 500 MG HCl 500 MG HCl 500 MG Keek No 1{table QD Noel Aspirin EC Aspirin EC t} Aspirin EC Low Dose 81 Low Dose 81 Low Dose MG MG 81 MG omeprazole omeprazole No omeprazole [place] 40 mg 40 mg 40 mg da capsule,del capsule,del capsule,de Medical ayed ayed layed Group release release release Take 1 Take 1 Take 1 capsule capsule capsule every day every day every day by oral by oral by oral route for route for route for 30 days. 30 days. 30 days. traMADol traMADol No traMADol HCl 50 MG [...] MG 2 MG t} e 2 MG OneTouch OneTouch No OneTouch [place] Delica Plus Delica Plus Delica da Lancet 33 Lancet 33 Plus Medic al gauge gauge Lancet 33 Group gauge Meclizine Meclizine No 1{table TID Meclizine HCl [...] MEQ OneTouch OneTouch No OneTouch [place] Ultra Blue Ultra Blue Ultra Blue da Test Strip Test Strip Test Strip Medical Group Entresto Entresto No 1{table Entresto 49/51mg 49/51mg [...] 81 Low Dose MG MG 81 MG OneTouch OneTouch No OneTouch [place] Ultra2 Ultra2 Ultra2 da Meter Meter Meter Medical Group Coreg 6.25 Coreg 6.25 No 1{table BID Coreg 6.25 MG MG t} MG Glimepiride Glimepiride No Glimepirid 2 MG 2 MG e 2 MG Entresto Entresto No 1{table Entresto 49/51mg 49/51mg t} 49/51mg 49/51mg 49/51mg 49/51mg Furosemide Furosemide No QD Furosemide 40 MG 40 MG 40 MG [employer] Noel No 1{table QD Noel Aspirin EC Aspirin EC t} Aspirin EC Low Dose 81 Low Dose 81 Low Dose MG MG 81 MG potassium potassium No potassium [place] chloride ER chloride ER chloride da 20 mEq 20 mEq ER 20 mEq Medica l tablet,exte tablet,exte tablet,ext Group nded nded ended release(par release(par release(pa t/cryst) t/cryst) rt/cryst) Take 1 Take 1 Take 1 tablet tablet tablet every day every day every day by oral by oral by oral route. route. route. traMADol traMADol No traMADol HCl 50 MG HCl 50 MG HCl 50 MG Klor-Con 10 Klor-Con 10 No 1{table QD Klor-Con 10 MEQ 10 MEQ t} 10 10 MEQ Potassium Potassium No Potassium Chloride Chloride Chloride Arleen ER 20 Arleen ER 20 Arleen ER 20 MEQ MEQ MEQ metFORMIN metFORMIN No metFORMIN HCl 500 MG HCl 500 MG HCl 500 MG tramadol 50 tramadol 50 No tramadol [place] mg tablet mg tablet 50 mg da TAKE 1 TAKE 1 tablet Medical TABLET BY TABLET BY TAKE 1 Adela up MOUTH EVERY MOUTH EVERY TABLET BY 8 HOURS 8 HOURS MOUTH NEEDED NEEDED EVERY 8 HOURS NEEDED Meclizine Meclizine No 1{table TID Meclizine HCl [...] 81 Low Dose MG MG 81 MG accu-chek accu-chek No accu-chek [place] guide guide guide da w/device w/device w/device Med ical kit kit kit Group traMADol traMADol No traMADol HCl 50 [...] 12.5 MG t_as_ne HCl 12.5 eded} MG albuterol albuterol No albuterol [place] sulfate HFA sulfate HFA sulfate da 90 90 HFA 90 Medical mcg/actuati mcg/actuati mcg/actuat Group on aerosol on aerosol ion inhaler inhaler aerosol inhaler Coreg 6.25 Coreg 6.25 No 1{table BID Coreg 6.25 MG MG t} MG Glimepiride Glimepiride No Glimepirid 2 MG 2 MG e 2 MG Entresto Entresto No 1{table Entresto 49/51mg 49/51mg t} 49/51mg 49/51mg 49/51mg 49/51mg Furosemide Furosemide No QD Furosemide 40 MG 40 MG 40 MG aspirin 81 aspirin 81 No 1 Q1D aspirin 81 [place] mg tablet mg tablet mg tablet da Take 1 Take 1 Take 1 Medical tablet tablet tablet Group every day every day every day by oral by oral by oral route. route. route. Noel Noel No 1{table QD Noel Aspirin [...] MG HCl 500 MG HCl 500 MG Breo Breo No Breo [place] Ellipta 200 Ellipta 200 Ellipta da mcg-25 mcg-25 200 mcg-25 Medic al mcg/dose mcg/dose mcg/dose Adela up powder for powder for powder for inhalation inhalation inhalation Meclizine Meclizine No 1{table TID Meclizine HCl [...] 49/51mg 49/51mg t} 49/51mg 49/51mg 49/51mg 49/51mg Klor-Con 10 Klor-Con 10 No 1{table QD [...] BID Coreg 6.25 MG MG t} MG Potassium Potassium No Potassium Chloride Chloride [...] 20 Arleen ER 20 MEQ MEQ MEQ Coreg 6.25 Coreg 6.25 No 1{table [...] breakfa st_or_t he_firs t_main_ meal_of _the_da y} Coreg 6.25 Coreg 6.25 No 1{table BID [...] BID Coreg 6.25 MG MG t} MG Jardiance Jardiance No 1{table QD Jardiance [...] 1 MG 1 MG t} 1 MG Furosemide Furosemide No QD Furosemide 40 [...] MG HCl 50 MG HCl 50 MG Jardiance Jardiance No 1{table QD Jardiance [...] 2 MG 2 MG e 2 MG Bumetanide Bumetanide No 1{table QD Bumetanide [...] MG 6.25 MG Klor-Con 10 Klor-Con 10 2020- No Kilo 1 tablet Common 05-23 [facility] 00:00 - [facility] :00 [facility] Immunizations Ordered Filled Immunization Date Status Comments Sourc e Immunization Name Name Influenza Virus 2022-04-24 Completed [facility] 00:[facility]:00 [place] [facility], Preserv and ABX Branc h Free 18-64 YRS Influenza Virus 2022-04-24 Completed [facility] Vaccine Recomb Quad 00:00:00 [place] [facility] IM, Preserv and ABX Branc h Free 18-64 YRS Influenza Virus 2022-04-24 Completed [facility] Vaccine Recomb Quad 00:00:00 [place] [facility] IM, Preserv and ABX Branc h Free 18-64 YRS Influenza Virus 2022-04-24 Completed [facility] Vaccine Recomb Quad 00:00:00 [place] [facility] IM, Preserv and ABX Branc h Free 18-64 YRS Influenza Virus 2022-04-24 Completed [facility] Vaccine Recomb Quad 00:00:00 [place] [facility] IM, Preserv and ABX Branc h Free 18-64 YRS Influenza Virus 2022-04-24 Completed [facility] Vaccine Recomb Quad 00:00:00 [place] [facility] IM, Preserv and ABX Branc h Free 18-64 YRS Influenza Virus 2022-04-24 Completed [facility] Vaccine Recomb Quad 00:00:00 [place] [facility] IM, Preserv and ABX Branc h Free 18-64 YRS Influenza Virus 2022-04-24 Completed [facility] Vaccine Recomb Quad 00:00:00 [place] [facility] IM, Preserv and ABX Branc h Free 18-64 YRS Influenza Virus 2022-04-24 Completed [facility] Vaccine Recomb Quad 00:00:00 [place] [facility] IM, Preserv and ABX Branc h Free 18-64 YRS Influenza Virus 2022-04-24 Completed [facility] Vaccine Recomb Quad 00:00:00 [place] [facility] IM, Preserv and ABX Branc h Free 18-64 YRS Influenza Virus 2022-04-24 Completed [facility] Vaccine Recomb Quad 00:00:00 [place] [facility] IM, Preserv and ABX Branc h Free 18-64 YRS Influenza Virus 2022-04-24 Completed [facility] Vaccine Recomb Quad 00:00:00 [place] [facility] IM, Preserv and ABX Branc h Free 18-64 YRS Influenza Virus 2022-04-24 Completed [facility] Vaccine Recomb Quad 00:00:00 [place] [facility] IM, Preserv and ABX Branc h Free 18-64 YRS Influenza Virus 2022-04-24 Completed [facility] Vaccine Recomb Quad 00:00:00 [place] [facility] IM, Preserv and ABX Branc h Free 18-64 YRS Influenza Virus 2022-04-24 Completed [facility] Vaccine Recomb Quad 00:00:00 [place] [facility] IM, Preserv and ABX Branc h Free 18-64 YRS Influenza Virus 2022-04-24 Completed [facility] Vaccine Recomb Quad 00:00:00 [place] [facility] IM, Preserv and ABX Branc h Free 18-64 YRS Influenza Virus 2022-04-24 Completed [facility] Vaccine Recomb Quad 00:00:00 [place] [facility] IM, Preserv and ABX Branc h Free 18-64 YRS Influenza Virus 2022-04-24 Completed [facility] Vaccine Recomb Quad 00:00:00 [place] [facility] IM, Preserv and ABX Branc h Free 18-64 YRS Influenza Virus 2022-04-24 Completed [facility] Vaccine Recomb Quad 00:00:00 [place] [facility] IM, Preserv and ABX Branc h Free 18-64 YRS Influenza Virus 2022-04-24 Completed [facility] Vaccine Recomb Quad 00:00:00 [place] [facility] IM, Preserv and ABX Branc h Free 18-64 YRS Influenza Virus 2022-04-24 Completed [facility] Vaccine Recomb Quad 00:00:00 [place] [facility] IM, Preserv and ABX Branc h Free 18-64 YRS Influenza Virus 2022-04-24 Completed [facility] Vaccine Recomb Quad 00:00:00 [place] [facility] IM, Preserv and ABX Branc h Free 18-64 YRS Influenza Virus 2022-04-24 Completed [facility] Vaccine Recomb Quad 00:00:00 [place] [facility] IM, Preserv and ABX Branc h Free 18-64 YRS Influenza Virus 2022-04-24 Completed [facility] Vaccine Recomb Quad 00:00:00 [place] [facility] IM, Preserv and ABX Branc h Free 18-64 YRS Influenza Virus 2022-04-24 Completed [facility] Vaccine Recomb Quad 00:00:00 [place] [facility] IM, Preserv and ABX Branc h Free 18-64 YRS Influenza Virus 2022-04-24 Completed [facility] Vaccine Recomb Quad 00:00:00 [place] [facility] IM, Preserv and ABX Branc h Free 18-64 YRS Pneumococcal 20 2022-01-25 Completed [facility] Conjugate, PCV20 00:00:00 [place] [facility] (Prevnar 20) Branch Pneumococcal 20 2022-01-25 Completed [facility] Conjugate, PCV20 00:00:00 [place] [facility] (Prevnar 20) Branch Pneumococcal 20 2022-01-25 Completed [facility] Conjugate, PCV20 00:00:00 [place] [facility] (Prevnar 20) Branch Pneumococcal 20 2022-01-25 Completed [facility] Conjugate, PCV20 00:00:00 [place] [facility] (Prevnar 20) Branch Pneumococcal 20 2022-01-25 Completed [facility] Conjugate, PCV20 00:00:00 [place] [facility] (Prevnar 20) Branch Pneumococcal 20 2022-01-25 Completed [facility] Conjugate, PCV20 00:00:00 [place] [facility] (Prevnar 20) Branch Pneumococcal 20 2022-01-25 Completed [facility] Conjugate, PCV20 00:00:00 [place] [facility] (Prevnar 20) Branch Pneumococcal 20 2022-01-25 Completed [facility] Conjugate, PCV20 00:00:00 [place] [facility] (Prevnar 20) Branch Pneumococcal 20 2022-01-25 Completed [facility] Conjugate, PCV20 00:00:00 [place] [facility] (Prevnar 20) Branch Pneumococcal 20 2022-01-25 Completed [facility] Conjugate, PCV20 00:00:00 [place] [facility] (Prevnar 20) Branch Pneumococcal 20 2022-01-25 Completed [facility] Conjugate, PCV20 00:00:00 [place] [facility] (Prevnar 20) Branch Pneumococcal 20 2022-01-25 Completed [facility] Conjugate, PCV20 00:00:00 [place] [facility] (Prevnar 20) Branch Pneumococcal 20 2022-01-25 Completed [facility] Conjugate, PCV20 00:00:00 [place] [facility] (Prevnar 20) Branch Pneumococcal 20 2022-01-25 Completed [facility] Conjugate, PCV20 00:00:00 [place] [facility] (Prevnar 20) Branch Pneumococcal 20 2022-01-25 Completed [facility] Conjugate, PCV20 00:00:00 [place] [facility] (Prevnar 20) Branch Pneumococcal 20 2022-01-25 Completed [facility] Conjugate, PCV20 00:00:00 [place] [facility] (Prevnar 20) Branch Pneumococcal 20 2022-01-25 Completed [facility] Conjugate, PCV20 00:00:00 [place] [facility] (Prevnar 20) Branch Pneumococcal 20 2022-01-25 Completed [facility] Conjugate, PCV20 00:00:00 [place] [facility] (Prevnar 20) Branch Pneumococcal 20 2022-01-25 Completed [facility] Conjugate, PCV20 00:00:00 [place] [facility] (Prevnar 20) Branch Pneumococcal 20 2022-01-25 Completed [facility] Conjugate, PCV20 00:00:00 [place] [facility] (Prevnar 20) Branch Pneumococcal 20 2022-01-25 Completed [facility] Conjugate, PCV20 00:00:00 [place] [facility] (Prevnar 20) Branch Pneumococcal 20 2022-01-25 Completed [facility] Conjugate, PCV20 00:00:00 [place] [facility] (Prevnar 20) Branch Pneumococcal 20 2022-01-25 Completed [facility] Conjugate, PCV20 00:00:00 [place] [facility] (Prevnar 20) Branch Pneumococcal 20 2022-01-25 Completed [facility] Conjugate, PCV20 00:00:00 [place] [facility] (Prevnar 20) Branch Pneumococcal 20 2022-01-25 Completed [facility] Conjugate, PCV20 00:00:00 [place] [facility] (Prevnar 20) Branch Pneumococcal 20 2022-01-25 Completed [facility] Conjugate, PCV20 00:00:00 [place] [facility] (Prevnar 20) Branch Moderna COVID-19 [place] COVID-19 2021-06-02 Completed [facility] - [facility]ine (Low Dose Vaccine (Low Dose 08:18:[address] [facility] Booster) Booster) [facility] Catiea COVID-19 [place] COVID-19 2021-06-02 Completed [facility] - [facility]ine (Low Dose Vaccine (Low Dose 08:18:[address] [facility] Booster) Booster) [facility] [address] [facility] Com[facility] - [facility]ine (Low Dose Vaccine (Low Dose 08:18:[address] [facility] Booster) Booster) [facility] [address] [facility]02 Com[facility] - [facility]ine (Low Dose Vaccine (Low Dose 08:18:[address] [facility] [address] [facility] Com[facility] - Vaccine (Low Dose Vaccine (Low Dose 08:18:[address] [facility] Booster[facility] [address] [facility]-02 Com[facility] - Vaccine (Low Dose Vaccine (Low Dose 08:18:[address] [facility] Booster) Booster) [facility] [address] [facility] 2021-[facility]-02 Com[facility] - Vaccine (Low Dose Vaccine (Low Dose 08:18:[address] [facility] Booster) Booster) [facility] [address] [facility] 2021-06-02 Com[facility] - Vaccine (Low Dose Vaccine (Low Dose 08:18:[address] [facility] Booster) [facility]oster[facility] [address] [facility] 2021-[facility]-02 Com[facility] - [facility]ine (Low Dose Vaccine (Low Dose 08:18:[address] [facility] Booster) Booster) [facility] [address] [facility] 2021-06-02 Completed [facility] - Vaccine (Low Dose Vaccine (Low Dose 08:18:[address] [facility] Booster) Booster) [facility] [address] [facility] 2021-06-02 Completed [facility] - Vaccine (Low Dose Vaccine (Low Dose 08:18:[address] [facility] Booster) Booster) [facility] [address] [facility] 2021-06-02 Com[facility] - [facility]ine (Low Dose Vaccine (Low Dose 08:18:[address] [facility] Booster) Booster) [facility] COVID19 [facility] COVID19 2021-06-02 Completed [facility] - Vaccine (Low Dose Vaccine (Low Dose 08:18:[address] [facility] Booster) Booster) [facility] COVID19 [facility] COVID19 2021-06-02 Completed [facility] - Vaccine (Low Dose Vaccine (Low Dose 08:18:[address] [facility] Booster) Booster) [facility] [address] COVID19 2021-06-02 Completed [facility] - Vaccine (Low Dose Vaccine (Low Dose 08:18:[address] [facility] Booster) Booster) [facility] [address] COVID19 2021-06-02 Completed [facility] - [facility]ine (Low Dose Vaccine (Low Dose 08:18:[address] [facility] Booster) Booster) [facility] [address] [facility] 2021-[facility]-02 Com[facility] - Vaccine (Low Dose Vaccine (Low Dose 08:18:[address] [facility] Booster) Booster) [facility] [address] [facility] 2021-06-02 Completed [facility] - Vaccine (Low Dose Vaccine (Low Dose 08:18:[address] [facility] Booster) Booster) [facility] [address] COVID19 2021-06-02 Completed [facility]ine (Low Dose Vaccine (Low Dose 08:18:[address] [facility] Booster) Booster) [facility]02 Completed Unive rsity of VACCINE - (MODERNA) 00:00:00 [facility] SARS-COV-2 COVID-19 2021-06-02 Completed Unive rsity of VACCINE - (MODERNA) 00:00:00 [facility] SARS-COV-2 COVID-19 2021-06-02 Completed [facility]ive [facility] of VACCINE - (MODERNA) 00:00:00 [facility] SARS-COV-2 COVID-19 2021-06-02 Completed [facility]ive [facility] of VACCINE - (MODERNA) 00:00:00 [facility] SARS-COV-2 COVID-19 2021-06-02 Completed [facility]ive [facility] of VACCINE - (MODERNA) 00:00:00 [facility] SARS-COV-2 COVID-19 2021-06-02 Completed Unive rs[facility] of VACCINE - (MODERNA) 00:00:00 [facility] SARS-COV-2 COVID-19 2021-06-02 Completed Unive rsity of VACCINE - (MODERNA) 00:00:00 [facility] SARS-COV-2 COVID-19 2021-06-02 Completed [facility]ive [facility] of VACCINE - (MODERNA) 00:00:00 [facility] SARS-COV-2 COVID-19 2021-06-02 Completed [facility]ive rs[facility] of VACCINE - (MODERNA) 00:00:00 [facility] SARS-COV-2 COVID-19 2021-06-02 Completed [facility]ive rs[facility] of VACCINE - (MODERNA) 00:00:00 [facility] SARS-COV-2 COVID-19 2021-06-02 Completed [facility]ive [facility] of VACCINE - (MODERNA) 00:00:00 [facility] SARS-COV-2 COVID-19 2021-06-02 Completed [facility]ive rs[facility] of VACCINE - (MODERNA) 00:00:00 [facility] SARS-COV-2 COVID-19 2021-06-02 Completed [facility]ive [facility] of VACCINE - (MODERNA) 00:00:00 [facility] SARS-COV-2 COVID-19 2021-06-02 Completed [facility]ive rs[facility] of VACCINE - (MODERNA) 00:00:00 [facility] SARS-COV-2 COVID-19 2021-06-02 Completed [facility]ive [facility] of VACCINE - (MODERNA) 00:00:00 [facility] SARS-COV-2 COVID-19 2021-06-02 Completed [facility]ive [facility] of VACCINE - (MODERNA) 00:00:00 [facility] SARS-COV-2 COVID-19 2021-06-02 Completed [facility] of VACCINE - (MODERNA) 00:00:00 [facility] SARS-COV-2 COVID-19 2021-06-02 Completed [facility]ive rs[facility] of VACCINE - (MODERNA) 00:00:00 [facility] SARS-COV-2 COVID-19 2021-06-02 Completed [facility]ive rs[facility] of VACCINE - (MODERNA) 00:00:00 [facility] SARS-COV-2 COVID-19 2021-06-02 Completed [facility]ive rs[facility] of VACCINE - (MODERNA) 00:00:00 [facility] SARS-COV-2 COVID-19 2021-06-02 Completed [facility] of VACCINE - (MODERNA) 00:00:00 [facility] SARS-COV-2 COVID-19 2021-06-02 Completed [facility]ive [facility] of VACCINE - (MODERNA) 00:00:00 [facility] SARS-COV-2 COVID-19 2021-06-02 Completed [facility] of VACCINE - (MODERNA) 00:00:00 [facility] SARS-COV-2 COVID-19 2021-06-02 Completed [facility]ive [facility] of VACCINE - (MODERNA) 00:00:00 [facility] SARS-COV-2 COVID-19 2021-06-02 Completed [facility]ive [facility] of VACCINE - (MODERNA) 00:00:00 [facility] SARS-COV-2 COVID-19 2021-06-02 Completed [facility]ive rs[facility] of VACCINE - (MODERNA) 00:00:00 [facility] Fluzone Fluzone 2021-02-21 Completed [facility] 14:39:00 [facility] Fluzone Fluzone 2021-02-21 Completed [facility] 14:39:00 [facility] Fluzone Fluzone 2021-02-21 Completed [facility] - 14:39:00 [facility] Fluzone Fluzone 2021-02-21 Completed [facility] - 14:39:00 [facility] Fluzone Fluzone 2021-02-21 Completed [facility] - 14:39:00 [facility] Fluzone Fluzone 2021-02-21 Completed [facility] - 14:39:00 [facility] Fluzone Fluzone 2021-02-21 Completed [facility] - 14:39:00 [facility] Fluzone Fluzone 2021-02-21 Completed [facility] - 14:39:00 [facility] Fluzone Fluzone 2021-02-21 Completed [facility] - 14:39:00 [facility] Fluzone Fluzone 2021-02-21 Completed [facility] - 14:39:00 [facility] Fluzone Fluzone 2021-02-21 Completed [facility] - 14:39:00 [facility] Fluzone Fluzone 2021-02-21 Completed [facility] - 14:39:00 [facility] Fluzone Fluzone 2021-02-21 Completed [facility] - 14:39:00 [facility] Fluzone Fluzone 2021-02-21 Completed [facility] - 14:39:00 [facility] Fluzone Fluzone 2021-02-21 Completed [facility] - 14:39:00 [facility] Fluzone Fluzone 2021-02-21 Completed [facility] - 14:39:00 [facility] Fluzone Fluzone 2021-02-21 Completed [facility] - 14:39:00 [facility] Fluzone Fluzone 2021-02-21 Completed [facility] - 14:39:00 [facility] Fluzone Fluzone 2021-02-21 Completed [facility] - 14:39:00 [facility] Fluzone Fluzone 2021-02-21 Completed [facility] - 14:39:00 [facility] Fluzone Fluzone 2021-02-21 Completed [facility] - 14:39:00 [facility] Fluzone Fluzone 2021-02-21 Completed [facility] - 14:39:00 [facility] Fluzone Fluzone 2021-02-21 Completed [facility] - 14:39:00 [facility] Fluzone Fluzone 2021-02-21 Completed [facility] - 14:39:00 [facility] Fluzone Fluzone 2021-02-21 Completed [facility] - 14:39:00 [facility] Fluzone Fluzone 2021-02-21 Completed [facility] 14:39:00 [facility] Fluzone Fluzone 2021-02-21 Completed [facility] - 14:39:00 [facility] Influenza Virus 2021-02-21 Completed [facility] Vaccine Quad .5 mL 00:00:00 [facility] 6+ MO Branch Influenza Virus 2021-02-21 Completed [facility]it y of Vaccine (3+ yrs) 00:00:00 [facility] Influenza Virus 2021-02-21 Completed [facility] of Vaccine Quad .5 mL 00:00:00 [facility] 6+ MO Branch Influenza Virus 2021-02-21 Completed [facility] of Vaccine (3+ yrs) 00:00:00 [facility] Influenza Virus 2021-02-21 Completed [facility] of Vaccine Quad .5 mL 00:00:00 [facility] 6+ MO Branch Influenza Virus 2021-02-21 Completed [facility] of Vaccine (3+ yrs) 00:00:00 [facility] Influenza Virus 2021-02-21 Completed [facility] of Vaccine Quad .5 mL 00:00:00 [facility] 6+ MO Branch Influenza Virus 2021-02-21 Completed [facility] of Vaccine (3+ yrs) 00:00:00 [facility] Influenza Virus 2021-02-21 Completed [facility] Vaccine Quad .5 mL 00:00:00 [facility] 6+ MO Branch Influenza Virus 2021-02-21 Completed [facility] of Vaccine (3+ yrs) 00:00:00 [facility] Influenza Virus 2021-02-21 Completed [facility] of Vaccine Quad .5 mL 00:00:00 [facility] 6+ MO Branch Influenza Virus 2021-02-21 Completed [facility] of Vaccine (3+ yrs) 00:00:00 [facility] Influenza Virus 2021-02-21 Completed [facility] of Vaccine Quad .5 mL 00:00:00 [facility] 6+ MO Branch Influenza Virus 2021-02-21 Completed [facility] of Vaccine (3+ yrs) 00:00:00 [facility] Influenza Virus 2021-02-21 Completed [facility] of Vaccine Quad .5 mL 00:00:00 [facility] 6+ MO Branch Influenza Virus 2021-02-21 Completed [facility] of Vaccine (3+ yrs) 00:00:00 [facility] Influenza Virus 2021-02-21 Completed [facility] of Vaccine Quad .5 mL 00:00:00 [facility] 6+ MO Branch Influenza Virus 2021-02-21 Completed [facility] of Vaccine (3+ yrs) 00:00:00 [facility] Influenza Virus 2021-02-21 Completed [facility] Vaccine Quad .5 mL 00:00:00 [facility] 6+ MO [facility] Influenza Virus 2021-02-21 Completed [facility] y of Vaccine (3+ yrs) 00:00:00 [facility] Influenza Virus 2021-02-21 Completed [facility] y of Vaccine Quad .5 mL 00:00:00 [facility] IM 6+ MO Branch Influenza Virus 2021-02-21 Completed [facility]it y of Vaccine (3+ yrs) 00:00:00 [facility] Influenza Virus 2021-02-21 Completed [facility] of Vaccine Quad .5 mL 00:00:00 [facility] 6+ MO Branch Influenza Virus 2021-02-21 Completed [facility] of Vaccine (3+ yrs) 00:00:00 [facility] Influenza Virus 2021-02-21 Completed [facility] of Vaccine Quad .5 mL 00:00:00 [facility] 6+ MO Branch Influenza Virus 2021-02-21 Completed [facility] of Vaccine (3+ yrs) 00:00:00 [facility] Influenza Virus 2021-02-21 Completed [facility] of Vaccine Quad .5 mL 00:00:00 [facility] 6+ MO Branch Influenza Virus 2021-02-21 Completed [facility] of Vaccine (3+ yrs) 00:00:00 [facility] Influenza Virus 2021-02-21 Completed [facility] of Vaccine Quad .5 mL 00:00:00 [facility] 6+ MO Branch Influenza Virus 2021-02-21 Completed [facility] of Vaccine (3+ yrs) 00:00:00 [facility] Influenza Virus 2021-02-21 Completed [facility] of Vaccine Quad .5 mL 00:00:00 [facility] 6+ MO Branch Influenza Virus 2021-02-21 Completed [facility] of Vaccine (3+ yrs) 00:00:00 [facility] Influenza Virus 2021-02-21 Completed [facility] of Vaccine Quad .5 mL 00:00:00 [facility] 6+ MO Branch Influenza Virus 2021-02-21 Completed [facility] of Vaccine (3+ yrs) 00:00:00 [facility] Influenza Virus 2021-02-21 Completed [facility] of Vaccine Quad .5 mL 00:00:00 [facility] 6+ MO Branch Influenza Virus 2021-02-21 Completed [facility] of Vaccine (3+ yrs) 00:00:00 [facility] Influenza Virus 2021-02-21 Completed [facility] of Vaccine Quad .5 mL 00:00:00 [facility] 6+ MO Branch Influenza Virus 2021-02-21 Completed [facility] of Vaccine (3+ yrs) 00:00:00 [facility] Influenza Virus 2021-02-21 Completed [facility] of Vaccine Quad .5 mL 00:00:00 [facility] 6+ MO Branch Influenza Virus 2021-02-21 Completed [facility] of Vaccine (3+ yrs) 00:00:00 [facility] Influenza Virus 2021-02-21 Completed [facility] of Vaccine Quad .5 mL 00:00:00 [facility] 6+ MO Branch Influenza Virus 2021-02-21 Completed [facility] of Vaccine (3+ yrs) 00:00:00 [facility] Influenza Virus 2021-02-21 Completed [facility] of Vaccine Quad .5 mL 00:00:00 [facility] 6+ MO Branch Influenza Virus 2021-02-21 Completed [facility] of Vaccine (3+ yrs) 00:00:00 [facility] Influenza Virus 2021-02-21 Completed [facility] of Vaccine Quad .5 mL 00:00:00 [facility] 6+ MO Branch Influenza Virus 2021-02-21 Completed [facility] of Vaccine (3+ yrs) 00:00:00 [facility] Influenza Virus 2021-02-21 Completed [facility] of Vaccine Quad .5 mL 00:00:00 [facility] 6+ MO Branch Influenza Virus 2021-02-21 Completed [facility] of Vaccine (3+ yrs) 00:00:00 [facility] Influenza Virus 2021-02-21 Completed [facility] of Vaccine Quad .5 mL 00:00:00 [facility] 6+ MO Branch Influenza Virus 2021-02-21 Completed [facility] of Vaccine (3+ yrs) 00:00:00 [facility] Influenza Virus 2021-02-21 Completed [facility] of Vaccine Quad .5 mL 00:00:00 [facility] 6+ MO Branch Influenza Virus 2021-02-21 Completed [facility] of Vaccine (3+ yrs) 00:00:00 [facility] Moderna COVID-19 Moderna COVID-19 2020-10-03 Completed [facility] Vaccine Vaccine 14:55:00 [facility] Moderna COVID-19 Moderna COVID-19 2020-10-03 Completed [facility] Vaccine Vaccine 14:55:00 [facility] Moderna COVID-19 Moderna COVID-19 2020-10-03 Completed [facility] Vaccine Vaccine 14:55:00 [facility] Moderna COVID-19 Moderna COVID-19 2020-10-03 Completed [facility] Vaccine Vaccine 14:55:00 [facility] Moderna COVID-19 Moderna COVID-19 2020-10-03 Completed [facility] Vaccine Vaccine 14:55:00 [facility] Moderna COVID-19 Moderna COVID-19 2020-10-03 Completed [facility] Vaccine Vaccine 14:55:00 [facility] Moderna COVID-19 Moderna COVID-19 2020-10-03 Completed [facility] Vaccine Vaccine 14:55:00 [facility] Moderna COVID-19 Moderna COVID-19 2020-10-03 Completed [facility] Vaccine Vaccine 14:55:00 [facility] Moderna COVID-19 Moderna COVID-19 2020-10-03 Completed [facility] Vaccine Vaccine 14:55:00 [facility] Moderna COVID-19 Moderna COVID-19 2020-10-03 Completed [facility] Vaccine Vaccine 14:55:00 [facility] Moderna COVID-19 Moderna COVID-19 2020-10-03 Completed [facility] Vaccine Vaccine 14:55:00 [facility] Moderna COVID-19 Moderna COVID-19 2020-10-03 Completed [facility] Vaccine Vaccine 14:55:00 [facility] Moderna COVID-19 Moderna COVID-19 2020-10-03 Completed [facility] Vaccine Vaccine 14:55:00 [facility] Moderna COVID-19 Moderna COVID-19 2020-10-03 Completed [facility] Vaccine Vaccine 14:55:00 [facility] Moderna COVID-19 Moderna COVID-19 2020-10-03 Completed [facility] Vaccine Vaccine 14:55:00 [facility] Moderna COVID-19 Moderna COVID-19 2020-10-03 Completed [facility] Vaccine Vaccine 14:55:00 [facility] Moderna COVID-19 Moderna COVID-19 2020-10-03 Completed [facility] Vaccine Vaccine 14:55:00 [facility] Moderna COVID-19 Moderna COVID-19 2020-10-03 Completed [facility] Vaccine Vaccine 14:55:00 [facility] Moderna COVID-19 Moderna COVID-19 2020-10-03 Completed [facility] Vaccine Vaccine 14:55:00 [facility] Moderna COVID-19 Moderna COVID-19 2020-10-03 Completed [facility] Vaccine Vaccine 14:55:00 [facility] Moderna COVID-19 Moderna COVID-19 2020-10-03 Completed [facility] Vaccine Vaccine 14:55:00 [facility] Moderna COVID-19 Moderna COVID-19 2020-10-03 Completed [facility] Vaccine Vaccine 14:55:00 [facility] Moderna COVID-19 Moderna COVID-19 2020-10-03 Completed [facility] Vaccine Vaccine 14:55:00 [facility] Moderna COVID-19 Moderna COVID-19 2020-10-03 Completed [facility] Vaccine Vaccine 14:55:00 [facility] Moderna COVID-19 Moderna COVID-19 2020-10-03 Completed [facility] Vaccine Vaccine 14:55:00 [facility] Moderna COVID-19 Moderna COVID-19 2020-10-03 Completed [facility] Vaccine Vaccine 14:55:00 [facility] Moderna COVID-19 Moderna COVID-19 2020-10-03 Completed [facility] Vaccine Vaccine 14:55:00 [facility] SARS-COV-2 COVID-19 2020-10-03 Completed Unive rsity of VACCINE - (MODERNA) 00:00:00 [facility] SARS-COV-2 COVID-19 2020-10-03 Completed Unive rsity of VACCINE - (MODERNA) 00:00:00 [facility] SARS-COV-2 COVID-19 2020-10-03 Completed Unive rsity of VACCINE - (MODERNA) 00:00:00 [facility] SARS-COV-2 COVID-19 2020-10-03 Completed Unive rsity of VACCINE - (MODERNA) 00:00:00 [facility] SARS-COV-2 COVID-19 2020-10-03 Completed Unive rsity of VACCINE - (MODERNA) 00:00:00 [facility] SARS-COV-2 COVID-19 2020-10-03 Completed Unive rsity of VACCINE - (MODERNA) 00:00:00 [facility] SARS-COV-2 COVID-19 2020-10-03 Completed Unive rsity of VACCINE - (MODERNA) 00:00:00 [facility] SARS-COV-2 COVID-19 2020-10-03 Completed Unive rsity of VACCINE - (MODERNA) 00:00:00 [facility] SARS-COV-2 COVID-19 2020-10-03 Completed Unive rsity of VACCINE - (MODERNA) 00:00:00 [facility] SARS-COV-2 COVID-19 2020-10-03 Completed Unive rsity of VACCINE - (MODERNA) 00:00:00 [facility] SARS-COV-2 COVID-19 2020-10-03 Completed [facility]ive rsity of VACCINE - (MODERNA) 00:00:00 [facility] SARS-COV-2 COVID-19 2020-10-03 Completed Unive rsity of VACCINE - (MODERNA) 00:00:00 [facility] SARS-COV-2 COVID-19 2020-10-03 Completed Unive rsity of VACCINE - (MODERNA) 00:00:00 [facility] SARS-COV-2 COVID-19 2020-10-03 Completed Unive rsity of VACCINE - (MODERNA) 00:00:00 [facility] SARS-COV-2 COVID-19 2020-10-03 Completed [facility]ive rsity of VACCINE - (MODERNA) 00:00:00 [facility] SARS-COV-2 COVID-19 2020-10-03 Completed Unive rsity of VACCINE - (MODERNA) 00:00:00 [facility] SARS-COV-2 COVID-19 2020-10-03 Completed [facility]ive [facility] of VACCINE - (MODERNA) 00:00:00 [facility] SARS-COV-2 COVID-19 2020-10-03 Completed Unive rsity of VACCINE - (MODERNA) 00:00:00 [facility] SARS-COV-2 COVID-19 2020-10-03 Completed [facility]ive [facility]ity of VACCINE - (MODERNA) 00:00:00 [facility] SARS-COV-2 COVID-19 2020-10-03 Completed [facility]ive rsity of VACCINE - (MODERNA) 00:00:00 [facility] SARS-COV-2 COVID-19 2020-10-03 Completed [facility]ive rs[facility] of VACCINE - (MODERNA) 00:00:00 [facility] SARS-COV-2 COVID-19 2020-10-03 Completed [facility]ive rsity of VACCINE - (MODERNA) 00:00:00 [facility] SARS-COV-2 COVID-19 2020-10-03 Completed [facility]ive [facility] of VACCINE - (MODERNA) 00:00:00 [facility] SARS-COV-2 COVID-19 2020-10-03 Completed [facility]ive rsity of VACCINE - (MODERNA) 00:00:00 [facility] SARS-COV-2 COVID-19 2020-10-03 Completed [facility]ive [facility] of VACCINE - (MODERNA) 00:00:00 [facility] SARS-COV-2 COVID-19 2020-10-03 Completed [facility] of VACCINE - (MODERNA) 00:00:00 [facility] Moderna COVID-19 Moderna COVID-19 2020-09-05 Completed [facility] Vaccine Vaccine 10:56:00 [facility] Moderna COVID-19 Moderna COVID-19 2020-09-05 Completed [facility] - Vaccine Vaccine 10:56:00 [facility] Moderna COVID-19 Moderna COVID-19 2020-09-05 Completed [facility] - Vaccine Vaccine 10:56:00 [facility] Moderna COVID-19 Moderna COVID-19 2020-09-05 Completed [facility] - Vaccine Vaccine 10:56:00 [facility] Moderna COVID-19 Moderna COVID-19 2020-09-05 Completed [facility] - Vaccine Vaccine 10:56:00 [facility] Moderna COVID-19 Moderna COVID-19 2020-09-05 Completed [facility] - Vaccine Vaccine 10:56:00 [facility] Moderna COVID-19 Moderna COVID-19 2020-09-05 Completed [facility] - Vaccine Vaccine 10:56:00 [facility] Moderna COVID-19 Moderna COVID-19 2020-09-05 Completed [facility] - Vaccine Vaccine 10:56:00 [facility] Moderna COVID-19 Moderna COVID-19 2020-09-05 Completed [facility] - Vaccine Vaccine 10:56:00 [facility] Moderna COVID-19 Moderna COVID-19 2020-09-05 Completed [facility] - Vaccine Vaccine 10:56:00 [facility] Moderna COVID-19 Moderna COVID-19 2020-09-05 Completed [facility] - Vaccine Vaccine 10:56:00 [facility] Moderna COVID-19 Moderna COVID-19 2020-09-05 Completed [facility] Vaccine Vaccine 10:56:00 [facility] Moderna COVID-19 Moderna COVID-19 2020-09-05 Completed [facility] - Vaccine Vaccine 10:56:00 [facility] Moderna COVID-19 Moderna COVID-19 2020-09-05 Completed [facility] Vaccine Vaccine 10:56:00 [facility] Moderna COVID-19 Moderna COVID-19 2020-09-05 Completed [facility] - Vaccine Vaccine 10:56:00 [facility] Moderna COVID-19 Moderna COVID-19 2020-09-05 Completed [facility] - Vaccine Vaccine 10:56:00 [facility] Moderna COVID-19 Moderna COVID-19 2020-09-05 Completed [facility] - Vaccine Vaccine 10:56:00 [facility] Moderna COVID-19 Moderna COVID-19 2020-09-05 Completed [facility] - Vaccine Vaccine 10:56:00 [facility] Moderna COVID-19 Moderna COVID-19 2020-09-05 Completed [facility] - Vaccine Vaccine 10:56:00 [facility] Moderna COVID-19 Moderna COVID-19 2020-09-05 Completed [facility] - Vaccine Vaccine 10:56:00 [facility] Moderna COVID-19 Moderna COVID-19 2020-09-05 Completed [facility] - Vaccine Vaccine 10:56:00 [facility] Moderna COVID-19 Moderna COVID-19 2020-09-05 Completed [facility] - Vaccine Vaccine 10:56:00 [facility] Moderna COVID-19 Moderna COVID-19 2020-09-05 Completed [facility] - Vaccine Vaccine 10:56:00 [facility] Moderna COVID-19 Moderna COVID-19 2020-09-05 Completed [facility] - Vaccine Vaccine 10:56:00 [facility] Moderna COVID-19 Moderna COVID-19 2020-09-05 Completed [facility] - Vaccine Vaccine 10:56:00 [facility] Moderna COVID-19 Moderna COVID-19 2020-09-05 Completed [facility] - Vaccine Vaccine 10:56:00 [facility] Moderna COVID-19 Moderna COVID-19 2020-09-05 Completed [facility] - Vaccine Vaccine 10:56:00 [facility] SARS-COV-2 COVID-19 2020-09-05 Completed [facility]ive [facility] of VACCINE - (MODERNA) 00:00:00 [facility] SARS-COV-2 COVID-19 2020-09-05 Completed [facility]ive [facility] of VACCINE - (MODERNA) 00:00:00 [facility] SARS-COV-2 COVID-19 2020-09-05 Completed [facility]ive [facility] of VACCINE - (MODERNA) 00:00:00 [facility] SARS-COV-2 COVID-19 2020-09-05 Completed [facility]ive [facility]ity of VACCINE - (MODERNA) 00:00:00 [facility] SARS-COV-2 COVID-19 2020-09-05 Completed Unive rsity of VACCINE - (MODERNA) 00:00:00 [facility] SARS-COV-2 COVID-19 2020-09-05 Completed [facility]ive rsity of VACCINE - (MODERNA) 00:00:00 [facility] SARS-COV-2 COVID-19 2020-09-05 Completed [facility]ive rsity of VACCINE - (MODERNA) 00:00:00 [facility] SARS-COV-2 COVID-19 2020-09-05 Completed [facility]ity of VACCINE - (MODERNA) 00:00:00 [facility] SARS-COV-2 COVID-19 2020-09-05 Completed [facility]ive [facility]ity of VACCINE - (MODERNA) 00:00:00 [facility] SARS-COV-2 COVID-19 2020-09-05 Completed [facility]ive [facility]ity of VACCINE - (MODERNA) 00:00:00 [facility] SARS-COV-2 COVID-19 2020-09-05 Completed [facility]ive rsity of VACCINE - (MODERNA) 00:00:00 [facility] SARS-COV-2 COVID-19 2020-09-05 Completed [facility]ive rsity of VACCINE - (MODERNA) 00:00:00 [facility] SARS-COV-2 COVID-19 2020-09-05 Completed [facility]ive rsity of VACCINE - (MODERNA) 00:00:00 [facility] SARS-COV-2 COVID-19 2020-09-05 Completed [facility]ive [facility] of VACCINE - (MODERNA) 00:00:00 [facility] SARS-COV-2 COVID-19 2020-09-05 Completed [facility]ive rsity of VACCINE - (MODERNA) 00:00:00 [facility] SARS-COV-2 COVID-19 2020-09-05 Completed [facility]ive rsity of VACCINE - (MODERNA) 00:00:00 [facility] SARS-COV-2 COVID-19 2020-09-05 Completed [facility]ive rsity of VACCINE - (MODERNA) 00:00:00 [facility] SARS-COV-2 COVID-19 2020-09-05 Completed [facility] of VACCINE - (MODERNA) 00:00:00 [facility] SARS-COV-2 COVID-19 2020-09-05 Completed [facility]ive rsity of VACCINE - (MODERNA) 00:00:00 [facility] SARS-COV-2 COVID-19 2020-09-05 Completed [facility] of VACCINE - (MODERNA) 00:00:00 [facility] SARS-COV-2 COVID-19 2020-09-05 Completed [facility] of VACCINE - (MODERNA) 00:00:00 [facility] SARS-COV-2 COVID-19 2020-09-05 Completed [facility] of VACCINE - (MODERNA) 00:00:00 [facility] SARS-COV-2 COVID-19 2020-09-05 Completed [facility] of VACCINE - (MODERNA) 00:00:00 [facility] SARS-COV-2 COVID-19 2020-09-05 Completed [facility] of VACCINE - (MODERNA) 00:00:00 [facility] SARS-COV-2 COVID-19 2020-09-05 Completed [facility]ive [facility]ity of VACCINE - (MODERNA) 00:00:00 [facility] SARS-COV-2 COVID-19 2020-09-05 Completed [facility] of VACCINE - (MODERNA) 00:00:00 [facility] Vital Signs Vital Name Observation Time Observation Value Comments Source Systolic blood 2022-10-03 14:55:00 90 mm[Hg] Univer [facility]ity of pressure [facility] Diastolic blood 2022-10-03 14:55:00 63 mm[Hg] Unive rsity of pressure [facility] Heart rate 2022-10-03 14:55:00 63 /min [facility] Body height 2022-10-03 14:55:00 154.9 cm [facility] Body weight 2022-10-03 14:55:00 116.166 kg [facility] BMI 2022-10-03 14:55:00 48.39 kg/m2 [facility] Oxygen saturation in 2022-10-03 14:55:00 96 /min [facility] blood by [facility] Pulse oximetry Branch Systolic blood 2022-10-02 14:43:00 92 mm[Hg] Univer sity of pressure [facility] Diastolic blood 2022-10-02 14:43:00 61 mm[Hg] Unive rsity of pressure [facility] Heart rate 2022-10-02 14:43:00 71 /min [facility] Respiratory rate 2022-10-02 14:39:00 19 /min [facility] Body height 2022-10-02 14:39:00 154.9 cm [facility] Body weight 2022-10-02 14:39:00 115.486 kg [facility] BMI 2022-10-02 14:39:00 48.11 kg/m2 [facility] Oxygen saturation in 2022-10-02 14:39:00 94 /min [facility] Arterial blood by [facility] Pulse oximetry Branch Systolic blood 2022-09-27 19:22:00 111 mm[Hg] Univer [facility]ity of pressure [facility] Diastolic blood 2022-09-27 19:22:00 72 mm[Hg] Unive rsity of pressure [facility] Heart rate 2022-09-27 19:22:00 70 /min [facility] Respiratory rate 2022-09-27 19:22:00 18 /min [facility] Body height 2022-09-27 19:22:00 154.9 cm [facility] Body weight 2022-09-27 19:22:00 115.35 kg [facility] BMI 2022-09-27 19:22:00 48.05 kg/m2 [facility] Oxygen saturation in 2022-09-27 19:22:00 99 /min [facility] blood by [facility] Pulse oximetry Branch Systolic blood 2022-08-19 15:57:00 90 mm[Hg] Univer [facility]ity of pressure [facility] Diastolic blood 2022-08-19 15:57:00 63 mm[Hg] Unive rsity of pressure [facility] Heart rate 2022-08-19 15:57:00 67 /min [facility] Body height 2022-08-19 15:57:00 154.9 cm [facility] Body weight 2022-08-19 15:57:00 113.898 kg [facility] BMI 2022-08-19 15:57:00 47.44 kg/m2 [facility] Oxygen saturation in 2022-08-19 15:57:00 96 /min [facility] Arterial blood by [facility] Pulse oximetry Branch Systolic blood 2022-07-08 19:02:00 95 mm[Hg] Univer [facility]ity of pressure [facility] Diastolic blood 2022-07-08 19:02:00 54 mm[Hg] Unive rsity of pressure [facility] Heart rate 2022-07-08 19:02:00 62 /min [facility]i [facility] of [facility] Body temperature 2022-07-08 19:02:00 36.33 Marya Univ ers[facility] of [facility] Respiratory rate 2022-07-08 19:02:00 18 /min Univ ersity of [facility] Body height 2022-07-08 19:02:00 154.9 cm [facility] Body weight 2022-07-08 19:02:00 115.713 kg [facility] BMI 2022-07-08 19:02:00 48.20 kg/m2 [facility] ty [facility] Oxygen saturation in 2022-07-08 19:02:00 99 /min [facility] Arterial blood by [facility] Pulse oximetry Branch height 2022-05-30 13:40:00 61 [in_i] [facility] weight 2022-05-30 13:40:00 249.4 [lb_av] Common [facility] temperature 2022-05-30 13:40:00 97.4 [degF] Common [facility] bmi 2022-05-30 13:40:00 47.12 kg/m2 [facility] oximetry 2022-05-30 13:40:00 96 % [facility] respiratory rate 2022-05-30 13:40:00 17 /min [facility] blood pressure 2022-05-30 13:40:00 119 mm[Hg] Common [facility] - systolic [facility] blood pressure 2022-05-30 13:40:00 68 mm[Hg] Common [facility] - diastolic [facility] height 2022-05-30 14:00:00 61 [in_i] Common [facility] weight 2022-05-30 14:00:00 249.4 [lb_av] Common [facility] temperature 2022-05-30 14:00:00 97.4 [degF] Common [facility] bmi 2022-05-30 14:00:00 47.12 kg/m2 [facility] oximetry 2022-05-30 14:00:00 96 % [facility] respiratory rate 2022-05-30 14:00:00 17 /min Comm on [facility] blood pressure 2022-05-30 14:00:00 119 mm[Hg] Common [facility] - systolic [facility] blood pressure 2022-05-30 14:00:00 68 mm[Hg] Common [facility] - diastolic [facility] Systolic blood 2022-04-10 17:14:00 109 mm[Hg] Univer sity of pressure [facility] Diastolic blood 2022-04-10 17:14:00 71 mm[Hg] Unive rsity of [facility] Heart rate 2022-04-10 17:14:00 65 /min [facility] Respiratory rate 2022-04-10 17:14:00 19 /min Univ ersity of [facility] Body height 2022-04-10 17:14:00 154.9 cm [facility] Body weight 2022-04-10 17:14:00 115.123 kg [facility] BMI 2022-04-10 17:14:00 47.96 kg/m2 [facility] Oxygen saturation in 2022-04-10 17:14:00 97 /min [facility] Arterial blood by [facility] Pulse oximetry Branch Systolic blood 2022-02-25 18:19:00 114 mm[Hg] Univer sity of pressure [facility] Diastolic blood 2022-02-25 18:19:00 74 mm[Hg] Unive rsity of [facility] Heart rate 2022-02-25 18:19:00 79 /min [facility] Body temperature 2022-02-25 18:19:00 36.17 Marya [facility] 2022-02-25 18:19:00 16 /min [facility] Body weight 2022-02-25 18:19:00 114.443 kg [facility] BMI 2022-02-25 18:19:00 47.67 kg/m2 [facility] height 2022-01-24 11:00:00 61 [in_i] Common [facility] weight 2022-01-24 11:00:00 250 [lb_av] [facility] temperature 2022-01-24 11:00:00 97.3 [degF] Common [facility] bmi 2022-01-24 11:00:00 47.23 kg/m2 [facility] oximetry 2022-01-24 11:00:00 95 % Common [facility] respiratory rate 2022-01-24 11:00:00 18 /min Comm on [facility] blood pressure 2022-01-24 11:00:00 100 mm[Hg] Common [facility] - systolic [facility] blood pressure 2022-01-24 11:00:00 59 mm[Hg] Common [facility] - diastolic [facility] height 2021-12-04 10:20:00 Common [facility] weight 2021-12-04 10:20:00 260 [lb_av] Common [facility] temperature 2021-12-04 10:20:00 97.3 [degF] [facility] bmi 2021-12-04 10:20:00 49.12 kg/m2 Common [facility] oximetry 2021-12-04 10:20:00 96 % Common [facility] respiratory rate 2021-12-04 10:20:00 18 /min Comm on [facility] blood pressure 2021-12-04 10:20:00 110 mm[Hg] Common [facility] - systolic [facility] blood pressure 2021-12-04 10:20:00 65 mm[Hg] Common [facility] - diastolic [facility] height 2021-09-04 09:40:00 62.25 [in_i] Common S [facility] weight 2021-09-04 09:40:00 261.4 [lb_av] Common [facility] temperature 2021-09-04 09:40:00 98.1 [degF] Common [facility] bmi 2021-09-04 09:40:00 47.42 kg/m2 [facility] oximetry 2021-09-04 09:40:00 100 % Common [facility] respiratory rate 2021-09-04 09:40:00 16 /min Comm on [facility] blood pressure 2021-09-04 09:40:00 110 mm[Hg] Common [facility] - systolic [facility] blood pressure 2021-09-04 09:40:00 84 mm[Hg] Common [facility] diastolic [facility] height 2021-06-05 10:00:00 62.25 [in_i] Common [facility] weight 2021-06-05 10:00:00 259 [lb_av] Common [facility] temperature 2021-06-05 10:00:00 98.1 [degF] Common [facility] bmi 2021-06-05 10:00:00 46.99 kg/m2 Common [facility] oximetry 2021-06-05 10:00:00 96 % [facility] respiratory rate 2021-06-05 10:00:00 18 /min Comm on [facility] blood pressure 2021-06-05 10:00:00 96 mm[Hg] Common [facility] - systolic [facility] blood pressure 2021-06-05 10:00:00 50 mm[Hg] Common [facility] - diastolic [facility] height 2021-06-05 10:20:00 62.25 [in_i] Common S pirit - [facility] weight 2021-06-05 10:20:00 259 [lb_av] [facility] temperature 2021-06-05 10:20:00 98.1 [degF] Common S pirit [facility] bmi 2021-06-05 10:20:00 46.99 kg/m2 [facility] S [facility] oximetry 2021-06-05 10:20:00 96 % [facility] blood pressure 2021-06-05 10:20:00 96 mm[Hg] Common [facility] - systolic [facility] blood pressure 2021-06-05 10:20:00 50 mm[Hg] Common [facility] - diastolic [facility] height 2021-05-14 10:00:00 62.25 [in_i] Common S pirit [facility] weight 2021-05-14 10:00:00 269 [lb_av] [facility] bmi 2021-05-14 10:00:00 48.8 kg/m2 Common [facility] height 2021-03-26 10:00:00 62.25 [in_i] Common S pirit [facility] weight 2021-03-26 10:00:00 261 [lb_av] Common [facility] temperature 2021-03-26 10:00:00 97.1 [degF] Common S pirit [facility] bmi 2021-03-26 10:00:00 47.35 kg/m2 [facility] S [facility] oximetry 2021-03-26 10:00:00 96 % [facility] respiratory rate 2021-03-26 10:00:00 16 /min Comm on [facility] blood pressure 2021-03-26 10:00:00 104 mm[Hg] Common [facility] - systolic [facility] blood pressure 2021-03-26 10:00:00 54 mm[Hg] Common [facility] - diastolic [facility] height 2021-02-26 08:40:00 62.25 [in_i] [facility] weight 2021-02-26 08:40:00 265 [lb_av] [facility] temperature 2021-02-26 08:40:00 97.2 [degF] [facility] bmi 2021-02-26 08:40:00 48.08 kg/m2 [facility] oximetry 2021-02-26 08:40:00 97 % [facility] respiratory rate 2021-02-26 08:40:00 16 /min Comm on [facility] blood pressure 2021-02-26 08:40:00 111 mm[Hg] Common [facility] - systolic [facility] blood pressure 2021-02-26 08:40:00 60 mm[Hg] Common [facility] - diastolic [facility] BP Diastolic 2020-09-14 00:00:00 68 mm[Hg] [facility] Height 2020-09-14 00:00:00 61 [in_i] [facility] BMI (Body Mass 2020-09-14 00:00:00 48 kg/m2 [facility] 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 [facility] Index) Group BP Systolic 2020-09-14 00:00:00 102 mm[Hg] [facility] Body Weight 2020-09-14 00:00:00 254.2 [lb_av] [facility] BP Diastolic 2020-05-31 00:00:00 79 mm[Hg] [facility] Height 2020-05-31 00:00:00 61 [in_i] [facility] BMI (Body Mass 2020-05-31 00:00:00 49.3 kg/m2 [facility] 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 Medical Index) Group BP Systolic 2020-05-31 00:00:00 116 mm[Hg] [facility] Body Weight 2020-05-31 00:00:00 260.7 [lb_av] [facility] BMI (Body Mass 2020-03-07 00:00:00 49.4 kg/m2 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 Index) [facility] BP Systolic 2020-03-07 00:00:00 115 mm[Hg] [facility] Body Weight 2020-03-07 00:00:00 261.5 [lb_av] [facility] BP Diastolic 2020-03-07 00:00:00 66 mm[Hg] [facility] Height 2020-03-07 00:00:00 61 [in_i] [facility] Systolic (mm Hg) 2021-04-23 16:18:00 Andres rial [facility]iss Diastolic (mm Hg) 2021-04-23 16:18:00 Mem orial [facility] Heart Rate 2021-04-23 16:18:00 [facility] Respitory Rate 2021-04-23 16:18:00 Memori al [facility] Height 2021-04-23 16:18:00 154.94 cm [facility] Weight 2021-04-23 16:18:00 [facility] BMI Calculated 2021-04-23 16:18:00 Memori al [facility] Systolic (mm Hg) 2021-03-22 18:19:00 Andres rial Kasi Diastolic (mm Hg) 2021-03-22 18:19:00 Mem orial [facility] Heart Rate 2021-03-22 18:19:00 [facility] Respitory Rate 2021-03-22 18:19:00 Memori al [facility] Height 2021-03-22 18:19:00 154.94 cm [facility] Weight 2021-03-22 18:19:00 [facility] BMI Calculated 2021-03-22 18:19:00 Memori al [facility] Systolic (mm Hg) 2021-02-21 18:59:00 Andres rial Kasi Diastolic (mm Hg) 2021-02-21 18:59:00 Mem orial [facility] Heart Rate 2021-02-21 18:59:00 [facility] Respitory Rate 2021-02-21 18:59:00 Memori al [facility] Height 2021-02-21 18:59:00 154.94 cm Jett Villaseñor Weight 2021-02-21 18:59:00 Jett [facility]asi BMI Calculated 2021-02-21 18:59:00 Shira Morelos Procedures Procedure Date / Time Performing Clinician Source Performed PATIENT AGREEMENTS AND 2022-10-10 05:01:00 Doctor Unassigned, [facility] CONTRACTS [facility] REFERRAL- REQUEST/RESPONSE 2022-09-24 05:01:00 Doctor Unassigned , [facility] PATIENT FINANCIAL 2022-08-19 15:42:43 Doctor Unassigned, [facility] POLICY [facility] SLEEP STUDY DATA REPORT 2022-07-23 06:01:00 Doctor Unassigned, [facility] ASSIGNMENT OF BENEFITS 2022-07-08 18:55:01 Doctor Unassigned, [facility] EXTERNAL FIT DNA 2022-06-21 10:34:00 Doctor Unassigned, [facility] PULMONARY FUNCTION REPORT 2022-05-24 06:01:00 Doctor Unassigned, [facility] EXTERNAL PROVIDER - ADC 2022-03-05 05:01:00 Doctor Unassigned, [facility] REFERRAL [facility] ASSIGNMENT OF BENEFITS 2022-01-10 15:14:06 Doctor Unassigned, [facility] MAGNESIUM 2021-11-28 15:33:00 Araceli, [facility] BASIC METABOLIC PANEL (NA, 2021-11-28 15:33:00 Miley houston, [facility] K, CL, CO2, GLUCOSE, BUN, [facility] CREATININE, CA) N-TERMINAL PRO-BNP 2021-11-28 15:33:00 Araceli, [facility] Automatic Defibrillator [facility] Cholecyst[facility] Defibrillation using [facility] Meek stark automated external cardiac defibrillator Encounters Start End Encounter Admission Attending Care Care Encounter Source Date/Time Date/Time Type Type Clinicians Facility Department ID 2022-10-07 Outpatient [place], STLMLC STLMLC [id number] Common 08:14:00 Aissatou 45141 [facility] 2022-09-18 Outpatient [place], STLMLC STLMLC [id number] Common 11:42:00 Aissatou 39776 [facility] 2022-09-16 Outpatient [place], STLMLC STLMLC [id number] Common 15:44:00 Aissatou 80839 [facility] 2022-06-18 Outpatient [place], STLMLC STLMLC [id number] Common 12:01:00 Aissatou [facility] 2022-05-28 Outpatient [place], STLMLC STLMLC [id number] Common 08:32:00 Aissatou [facility] 2021-11-30 Outpatient [place], STLMLC STLMLC [id number] Common 07:54:00 Aissatou [facility] 2021-09-05 Outpatient [place], STLMLC STLMLC [id number] Common 10:56:01 Aissatou [facility] 2021-06-13 Outpatient [place], STLMLC STLMLC [id number] Common 14:38:32 Aissatou [facility] 2021-06-13 Outpatient [place], STLMLC STLMLC [id number] Common 14:35:38 Aissatou [facility] 2021-06-13 Outpatient [place], STLMLC STLMLC [id number] Common 14:01:32 Aissatou 99713 [facility] 2021-06-13 Outpatient [place], STLMLC STLMLC [id number] Common 13:44:49 Aissatou 68614 [facility] 2021-06-13 Outpatient [place], STLMLC STLMLC [id number] Common 13:27:14 Aissatou 66985 [facility] 2021-06-13 Outpatient [place], STLMLC STLMLC [id number] Common 12:57:09 Aissatou 96625 [facility] 2021-06-13 Outpatient Laury, STLMLC [facility] [id number] Common 12:25:50 Aissatou 02743 [facility] 2021-06-13 Outpatient Lyn, STLMLC [facility] [id number] Common 11:42:20 Aleah 60413 [facility] 2021-06-13 Outpatient Lyn, STLMLC [facility] [id number] Common 11:39:36 Aleah 16793 [facility] 2021-06-13 Outpatient Lyn, STLMLC [facility] [id number] Common 11:24:42 Aleah 26803 [facility] 2021-06-13 Outpatient Lyn, STLMLC [facility] [id number] Common 11:08:27 Aleah 13926 [facility] 2022-11-12 2022-11-12 Outpatient William PITTMAN [facility] [id number] Univers 09:30:00 09:30:[address] [facility] 2022-11-12 2022-11-12 Refill Kaela CHILDERS 1.2.840.114 [id number] Univers 00:00:00 00:00:00 [place], PEDIATRIC 350.1.13.10 ity of [place] [id number] [facility] 059 [facility] 2022-10-10 2022-10-10 Office Papa NCIRVING 1.2.840.114 [id number] Univers 11:15:00 11:15:00 Visit Mireya SPECIALTY 350.1.13.10 ity [place] AT [id number] De stephanie DUENAS 253 [facility] 2022-10-10 2022-10-10 Outpatient R PAPA [facility] [id number] Univers 11:15:00 11:13:57 MIREYA louie [facility] 2022-10-10 2022-10-10 Orders Doctor DEL TORO 1.2.840.114 [id number] Univers 00:00:00 00:00:00 Only Unassigned, BROOK 350.1.13.10 ity of [place] [facility] 4.2.7.2.686 [place] as [id number] [facility] 009 Branch 2022-10-03 2022-10-03 Office Ju [facility] 1.2.840.114 [id number] Univers 09:40:00 10:16:13 Visit Kadi SANTANA 350.1.13.10 ity of op[place] [facility] [place] [id number] De dicil NAL 059 [facility] 2022-10-03 2022-10-03 Outpatient R ALYSSA DODD [facility] [id number] Univers 09:40:00 10:16:13 JU ALYSSA ity of [facility] 2022-10-02 2022-10-02 Office James [facility] 1.2.121.135 [id number] [facility] 11:30:00 12:00:00 Visit Sigifredo Jauregui [facility] 350.1.13.10 ity of [facility] [place] [id number] [facility] 085 [facility] 2022-10-02 2022-10-02 Outpatient R SIGIFREDO RAMIREZ [facility] [id number] Univers 11:30:00 11:30:00 SIGIFREDO RAMIREZ ity [facility] 2022-10-01 2022-10-01 Telephone [facility] [place] 1.2.840.11 [id number] Univers 00:00:00 00:00:00 [place], [facility] 350.1.13.10 ity of [place] [id number] [facility] 414 Branch 2022-09-30 2022-09-30 Telephone Rosangela SOLIS 1.2.840.114 [id number] Univers 00:00:00 00:00:00 , Marychuy ORTIZ 350.1.13.10 ity of [place] [id number] [facility] [address] [place] 2022-09-30 2022-09-30 Telephone [facility] 1.2.840.11 [id number] Univers 00:00:00 00:00:00 Keren Segura HEALTH 350.1.13.10 ity of [place] CLINICS [place] [id number] [address] 2022-09-30 2022-09-30 Telephone [facility] 1.2.840.11 4 [id number] Univers 00:00:00 00:00:00 Keren Segura HEALTH 350.1.13.10 ity of [place] CL[place] [id number] [address] 2022-09-27 2022-09-27 Neurology Epilepsy Physician Lab, [facility] 1.2.840.1 14 [id number] Univers 15:30:00 15:45:00 Visit Andrews Perla [facility] 350.1.13. 10 ity of [place] 4.2.7.2.686 Arnulfo as BENJAMIN?BLEA [id number] [facility] [address] [place] MEDICAL OFFICE BUILDING 2022-09-27 2022-09-27 Outpatient R ANDREWS PERLA [facility] [id number] Univers 14:40:00 15:20:20 [facility] 2022-09-27 2022-09-27 Office [email or web address] 1.2.840.114 [id number] Univers 14:40:00 15:20:20 Visit [facility] 350.1.13.10 ity of [place] 4.2.7.2.686 [place] as BENJAMIN?BLEA [id number] [facility] [address] [place] MEDICAL OFFICE BUILDING 2022-09-24 2022-09-24 Orders Doctor DEL TORO 1.2.840.114 [id number] Univers 00:00:00 00:00:00 Only Unassigned, BROOK 350.1.13.10 ity of [place] [facility] 4.2.7.2.686 [place] [id number] [address] 2022-09-23 2022-09-23 Telephone Pan [facility] 1.2.840.114 [id number] Univers 00:00:00 00:00:00 [facility] 350.1.13.10 ity of [place] 4.2.7.2.686 [place] BENJAMIN?BLEA [id number] De dical KNEY [address] [place] MEDICAL OFFICE BUILDING 2022-09-11 2022-09-11 Telephone [facility] 1.2.840.114 [id number] Univers 00:00:00 00:00:00 [place], HEALTH 350.1.13.10 ity of [place] [id number] [facility][note 3] [address] [place] OFFICE BUILDING 2022-08-30 2022-08-30 Telephone Rosangela BRUNERCarolynn 1.2.840.114 [id number] Univers 00:00:00 00:00:00 , Marychuy Fishman ORTIZ 350.1.13.10 ity of [place] [id number] [facility] [address] [place] 2022-08-28 2022-08-28 Outpatient SOURAV CORONADO [facility] [id number] [place] 09:20:00 09:20:00 [id number] [facility] 2022-08-19 2022-08-19 Office [facility] 1.2.969.459 [id number] Univers 11:30:00 11:30:00 Visit Afaq [place] 350.1.13.10 i ty of [place].7.[place] [id number] De flexil NAL 059 Branch [facility] 2022-08-19 2022-08-19 Outpatient [facility] [id number] Univers 11:30:00 11:14:01 AFAQ ity of [facility] 2022-08-19 2022-08-19 Orders Doctor ALVERTO 1.2.840.114 [id number] Univers 00:00:00 00:00:00 Only Unassigned, BROOK 350.1.13.10 ity of [place] [facility] 4.2.7.2.686 Arnlufo as [id number] [place] [address] Branch 2022-08-18 2022-08-18 Refill Itsantiago CHILDERS 1.2.840.114 10 [id number] Univers 00:00:00 00:00:00 [place], PEDIATRIC 350.1.13.10 ity of [place] [id number] [address] 2022-08-07 2022-08-07 Outpatient R SIGIFREDO RAMIREZ [facility] [id number] Univers 09:30:00 09:30:00 SIGIFREDO RAMIREZ ity [facility] 2022-08-03 2022-08-03 Refill Kaela CHILDERS 1.2.840.114 10 [id number] Univers 00:00:00 00:00:00 [place], PEDIATRIC 350.1.13.10 ity of [place] [id number] [address] 2022-07-23 2022-07-23 Neurology Epilepsy Physician 1, [facility] Sleep Lab Bed [facility] 1. 2.840.114 [id number] Univers 20:00:00 22:30:00 Visit Sigifredo Ramirez 350.1.13. 10 ity of [place] 4.2.7.2.[place] [id number] [place] [address] Branch 2022-07-23 2022-07-23 Outpatient R SIGIFREDO RAMIREZ [facility] [id number] Univers 20:00:00 20:00:00 SIGIFREDO RAMIREZ ity [facility] 2022-07-23 2022-07-23 Orders Doctor DEL TORO 1.2.840.114 [id number] Univers 00:00:00 00:00:00 Only Unassigned, [place] 350.1.13.10 [place] of [place] [facility] 4.2.7.2.686 [place] [id number] [address] 2022-07-15 2022-07-15 Telephone Kaela CHILDERS 1.2.840.114 [id number] Univers 00:00:00 00:00:00 [place], PEDIATRIC 350.1.13.10 ity of [place] [id number] [facility] PRIMARY 9 Branch CARE CLINIC 2022-07-09 2022-07-09 Letter Feliberto, [facility] 1.2.840.114 [id number] Univers 00:00:00 00:00:00 (Out) General HEALTH 350.1.13.10 it y of Cardiology [place] 4.2.7.2.686 [place] [id number] [place] [address] Branch OFFICE BUILDING 2022-07-08 2022-07-08 Office [facility] 1.2.840.114 [id number] Univers 13:00:00 13:30:00 Visit [place] PEDIATRIC 350.1.13.10 ity of [place] [id number] [place] [address] Branch CARE CLINIC 2022-07-08 2022-07-08 Outpatient R [facility] [id number] Univers 13:00:00 13:00:00 [place], ity of [facility] 2022-07-08 2022-07-08 Orders Doctor ALVERTO 1.2.840.114 [id number] Univers 00:00:00 00:00:00 Only Unassigned, BROOK 350.1.13.10 ity of [place] HOSPITAL 4.2.7.2.686 [place] [id number] [place] [address] Branch 2022-07-08 2022-07-08 Telephone [facility] 1.2.840.11 4 [id number] Univers 00:00:00 00:00:00 [place] Y HEALTH 350.1.13.10 ity of [place] CLINICS 4.2.7.2.[place] [id number] [place] [address] Branch 2022-06-06 2022-06-06 (TEL) STLC STLMLC [id number] Co mmon 00:00:00 00:00:00 [facility] 2022-06-05 2022-06-05 (TEL) STLMLC STLMLC [id number] Co mmon 00:00:00 00:00:00 Spirit - [facility] 2022-05-30 2022-05-30 Telephone [facility] 1.2.840.11 4 [id number] Univers 00:00:00 00:00:00 [place], Y HEALTH 350.1.13.10 ity of [place] CLINICS 4.2.7.2.[place] [id number] [facility] 414 Branch 2022-05-30 2022-05-30 Refill Iturrizaga- [facility] [place] 1.2.840.114 [id number] Univers 00:00:00 00:00:00 [place], Y HEALTH 350.1.13.10 ity of [place] CLINICS 4.2.7.2.[place] [id number] [facility] 414 [address] 2022-05-30 2022-05-30 OFFICE STLMLC STLC [id number] Co mmon 00:00:00 00:00:00 VISIT Spirit ESTAB PT - CHI LEVEL 4 [facility] 2022-05-30 2022-05-30 SUB ANNUAL STLC STLC [id number] Common 00:00:00 00:00:00 [facility] Spirit WELLNESS - CHI VISIT [facility] 2022-05-29 2022-05-29 Telephone [facility] 1.2.840.114 [id number] Univers 00:00:00 00:00:00 [place], PEDIATRIC 350.1.13.10 ity of [place] [id number] [facility] PRIMARY 059 Branch CARE CLINIC 2022-05-24 2022-05-24 Neurology Epilepsy Physician Testing, [facility] Pulmonary Func tion UNIVERSIT 1.2.840.114 [id number] Univers 09:30:00 11:31:11 Visit Miguel Ford Y HEALTH 350.1.13. 10 ity of CLINICS 4[place]2.7.2.[place] [id number] [facility] 083 Branch 2022-05-24 2022-05-24 Outpatient William FORD [facility] [id number] Univers 09:30:00 09:30:00 MIGUEL louie [facility] 2022-05-24 2022-05-24 Orders Doctor ALVERTO 1.2.840.114 [id number] Univers 00:00:00 00:00:00 Only Unassigned, BROOK 350.1.13.10 ity of [facility] 4.2.7.2.686 [place] as [id number] [facility] 009 Branch 2022-04-26 2022-04-26 Outpatient R [facility] [id number] Univers 09:30:00 09:30:00 COLTONjacy ROMEO [facility] 2022-04-10 2022-04-10 Office James [facility] [id number] Univers 11:00:00 11:30:00 Visit Sigifredo SANTANA 350.1.13.10 ity of [place] [id number] [address] 2022-04-10 2022-04-10 [facility] [id number] Univers 11:00:00 11:00:00 SIGIFREDO RAMIREZ [facility] 2022-04-03 2022-04-03 [facility] [id number] Univers 08:17:34 23:59:00 jacy SEGURA [facility] 2022-03-21 2022-03-21 Telephone [facility] [id number] Univers 00:00:00 00:00:00 [place] [facility] 350.1.13.10 ity [facility] 4[place].2.[place] [id number] [facility] [address] 2022-03-19 2022-03-19 [facility]patient [facility] [id number] Univers 09:00:00 23:59:00 jacy SEGURA [facility] 2022-03-06 2022-03-06 Outpatient R JAMES [facility] [id number] Univers 14:00:00 14:00:00 SIGIFREDO RAMIREZ ity of [facility] 2022-03-05 2022-03-05 Orders Doctor ALVERTO 1.2.840.114 [id number] Univers 00:00:00 00:00:00 Only Unassigned, BROOK 350.1.13.10 [facility] 4.2.7.2.686 Arn[place]fo as [phone] [address] 2022-03-04 2022-03-04 (TEL) STLMLC STLMLC [id number] Co mmon 00:00:00 00:00:00 [facility] 2022-03-04 2022-03-04 (TEL) STLMLC STLMLC [id number] Co mmon 00:00:00 00:00:00 [facility] 2022-02-25 2022-02-25 Outpatient [facility] [id number] Univers 13:30:00 13:53:55 COLTON ity of [facility] 2022-02-25 2022-02-25 Office Kaela CHILDERS 1.2.840.114 [id number] Univers 13:30:00 13:53:55 Visit [place], PEDIATRIC 350.1.13.10 it[place] of [place] [id number] [address] 2022-02-25 2022-02-25 Telephone Kaela CHILDERS 1.2.840.114 [id number] Univers 00:00:00 00:00:00 [place] PEDIATRIC 350.1.13.10 it[place] of [place] [id number] [address] 2022-02-13 2022-02-13 (TEL) STLMLC STLMLC [id number] Co mmon 00:00:00 00:00:00 [facility] 2022-02-06 2022-02-06 (TEL) STLMLC STLMLC [id number] Co mmon 00:00:00 00:00:00 [facility] 2022-01-24 2022-01-24 OFFICE STLMLC STLMLC [id number] Co mmon 00:00:00 00:00:00 VISIT Elieser COPE PT - CHI LEVEL 4 [facility] 2022-01-23 2022-01-23 (TEL) STLMLC STLMLC [id number] Co mmon 00:00:00 00:00:00 [facility] 2022-01-11 2022-01-11 (TEL) STLMLC STLMLC [id number] Co mmon 00:00:00 00:00:00 [facility] 2022-01-10 2022-01-10 Outpatient R RADIOLOGY [facility] [id number] Univers 10:15:43 23:59:00 ity of [facility] 2022-01-10 2022-01-10 Hospital Radiology [facility] 1.2.840.114 [id number] Univers 10:15:43 23:59:00 Encounter MAX 350.1.13.10 [place] of [place] [id number] [facility] [address] 2022-01-10 2022-01-10 Neurology Epilepsy Physician Arlette, Adc Lab Main [facility] 1.2.8 40.114 [id number] Univers 11:15:00 11:30:00 Visit Milo Bennett 350.1.13.10 it[place] of [place] [id number] De dical [facility] [address] BUILDING 2022-01-10 2022-01-10 Orders Doctor ALVERTO 1.2.840.114 [id number] Univers 00:00:00 00:00:00 Only Unassigned, BROOK 350.1.13.10 ity of [place] [facility] 4.2.7.2.686 Arnul[place] as [phone] [facility] [address] 2022-01-01 2022-01-01 [facility] 1.2.840.114 [id number] Univers 00:00:00 00:00:00 [place] [facility] 350.1.13.10 ity of [place] [phone] [facility][note 3] [address] OFFICE BUILDING 2021-12-19 2021-12-19 Outpatient R RADIOLOGY [facility] RAD [id number] Univers 10:20:00 10:20:00 ity of [facility] 2021-12-04 2021-12-04 Telephone Kaela NELSON 1.2.840.11 4 [id number] Univers 00:00:00 00:00:00 [place] Y HEALTH 350.1.13.10 ity of [place] [facility] 4.2.7.2.686 [place] [id number] [facility] [address] 2021-12-04 2021-12-04 OFFICE STLMLC STLC [id number] Co mmon 00:00:00 00:00:00 VISIT Elieser [facility] PT - CHI LEVEL 4 [facility] 2021-11-28 2021-11-28 Neurology Epilepsy Physician Arlette, Adc Lab Main [facility] 1.2.8 40.114 [id number] Univers 10:00:00 10:15:00 Visit Wood [place] 3 50.1.13.10 ity of [place] 4.2.7.2.686 [place] [facility] [phone] De dical [facility] [address] BUILDING 2021-11-28 2021-11-28 Outpatient [facility] [id number] Univers 10:00:00 10:00:00 COLTON ity of [facility] 2021-11-27 2021-11-27 Telephone Kaela CHILDERS 1.2.840.114 [id number] Univers 00:00:00 00:00:00 JESSICA Segura 350.1.13.10 it[place] of [place] [id number] [facility] PRIMARY [address] CARE CLINIC 2021-10-31 2021-10-31 (TEL) STLMLC STLMLC [id number] Co mmon 00:00:00 00:00:00 Spirit - [facility] 2021-10-19 2021-10-19 Outpatient R PAPA [facility] [id number] Univers 11:00:00 11:00:00 MIREYA ity [facility] 2021-10-18 2021-10-18 Telephone Kaela CHILDERS 1.2.840.114 [id number] Univers 00:00:00 00:00:00 [place], PEDIATRIC 350.1.13.10 [place] [id number] [address] 2021-10-18 2021-10-18 Telephone Kaela CHILDERS 1.2.840.114 [id number] Univers 00:00:00 00:00:00 [place], PEDIATRIC 350.1.13.10 [place] of [place] [id number] [address] 2021-09-04 2021-09-04 Outpatient R ABEBA [facility] [id number] Univers 14:00:00 17:37:46 FE ity [facility] 2021-09-04 2021-09-04 Office [email or web address] 1.2.840.114 [id number] Univers 14:00:00 17:37:46 Visit Fe SPECIALTY 350.1.13.10 ity of [place]2.[place] C[place] AT [id number] De stephanie [address] 2021-09-04 2021-09-04 Orders Doctor ALVERTO 1.2.840.114 [id number] Univers 00:00:00 00:00:00 Only Unassigned, BROOK 350.1.13.10 ity of [place] [facility] 4.2.7.2.686 [place] as [phone] [address] 2021-09-04 2021-09-04 OFFICE [facility] [id number] Co mmon 00:00:00 00:00:00 VISIT Elieser COPE PT - CHI LEVEL 4 [facility] 2021-09-03 2021-09-03 Telephone Kaela CHILDERS 1.2.840.114 [id number] Univers 00:00:00 00:00:00 [place], PEDIATRIC 350.1.13.10 it[place] of [place] [id number] [address] 2021-08-31 2021-08-31 Telephone [facility] 1.2.840.114 [id number] Univers 00:00:00 00:00:00 [place] [facility] 350.1.13.10 ity of [place] [phone] [address] OFFICE BUILDING 2021-08-29 2021-08-29 Outpatient R SARAI [facility] [id number] Univers 09:00:00 10:28:[address] [facility] 2021-08-29 2021-08-29 Nurse Nurse, Alexander CHILDERS 1.2.84 0.114 [id number] Univers 09:00:00 09:20:00 Visit Unknown, Attending PEDIATRIC 350.1.13. 10 it[place] of [place] [id number] [facility] 314 [facility] 2021-08-29 2021-08-29 Outpatient R DANYELLE, [facility] [id number] Univers 09:00:00 09:00:00 [facility] 2021-08-24 2021-08-24 [facility] [id number] Univers 16:30:00 16:50:59 COL[place] [facility] 2021-08-24 2021-08-24 Office santiago CHILDERS 1.2.840.114 [id number] Univers 16:30:00 16:50:59 Visit [place] PEDIATRIC 350.1.13.10 it[place] of [place] [id number] [address] 2021-07-30 2021-07-30 (TEL) STLMLC STLMLC [id number] Co mmon 00:00:00 00:00:00 [facility] 2021-07-24 2021-07-24 Ambulatory nullFlavo MNA [id number] Memoria 16:30:00 16:30:00 Pre-Reg r Neurology 05 l Isael Villaseñor 2021-07-24 2021-07-24 Ambulatory nullFlavo MNA [id number] Memoria 16:30:00 16:30:00 Pre-Reg r Neurology 05 l Isael Villaseñor 2021-07-24 2021-07-24 Outpatient MHIE IE [id number] [facility] 10:30[facility]00 10:30:00 05 l Kasi 2021-07-24 2021-07-24 Outpatient [facility], MISCHER MISCHER [id number] 10:30:00 10:30:00 Regulo Paulo Garcia 2021-07-12 2021-07-12 Telephone [email or web address] 1.2.437.271 [id number] Univers 00:00:00 00:00:00 Joel SANTANA 350.1.13.10 ity [facility] [place] [phone] [address] 2021-07-06 2021-07-06 [facility] 1.2.744.277 [id number] Univers 00:00:00 00:00:00 Joel SANTANA 350.1.13.10 ity [facility] [place] [id number] De dicil JAZZMINE [address] [place] [address] 2021-07-05 2021-07-05 [facility] [id number] Univers 08:54:58 23:59:00 SENDIL ity of [facility] 2021-07-05 2021-07-05 [email or web address] 1.2.840.114 [id number] Univers 08:54:58 23:59:00 Encounter Joel SANTANA 350.1.13.10 ity [facility] 4[place]2.[place] [id number] [address] 2021-07-05 2021-07-05 Outpatient [facility] [id number] Univers 09:00:00 09:00:00 SENDIL ity [facility] 2021-06-25 2021-06-25 Telephone [email or web address] 1.2.973.929 [id number] Univers 00:00:00 00:00:00 Sendil KatieRenukaLino MAX 350.1.13.10 ity [facility] 4[place] [id number] [address] 2021-06-19 2021-06-19 Office Yue [facility] 1.2.840.114 [id number] Univers 14:00:00 14:49:22 Visit Sendla Suellen SANTANA 350.1.13.10 ity [facility] 4[place]2.[place].2.[place] [id number] [address] 2021-06-19 2021-06-19 Outpatient [facility] [id number] Univers 14:00:00 14:49:22 SENDIL ity [facility] 2021-06-19 2021-06-19 Outpatient [facility] [id number] Univers 14:00:00 14:49:[address] [facility] 2021-06-19 2021-06-19 Orders Doctor DEL TORO 1.2.840.114 [id number] Univers 00:00:00 00:00:00 Only Unassigned, BROOK 350.1.13.10 ity of [place] [facility] 4.2.7.2.686 [place] as [phone] [address] 2021-06-05 2021-06-05 OFFICE [facility] [id number] Co mmon 00:00:00 00:00:00 VISIT Spirit ESTAB PT - CHI LEVEL 4 [facility] 2021-06-05 2021-06-05 [facility] [id number] Common 00:00:00 00:00:00 MCR Spirit WELLNESS - CHI VISIT [facility] 2021-05-15 2021-05-15 Outpatient R [facility] [id number] Univers 17:00:00 17:00:00 ity of [facility] 2021-05-14 2021-05-14 (TEL) STLMLC STLMLC [id number] Co mmon 00:00:00 00:00:00 [facility] CHI [facility] 2021-05-14 2021-05-14 OFFICE STLMLC STLMLC [id number] Co mmon 00:00:00 00:00:00 VISIT EST Spir it PT LEVEL 3 - CHI [facility] 2021-05-14 2021-05-14 (TEL) STLMLC STLMLC [id number] Co mmon 00:00:00 00:00:00 [facility] 2021-04-23 2021-04-24 Outpatient nullFlavo MNA [id number] Memoria 16:00:00 05:59:59 r Neurology 04 radha Isael Villaseñor 2021-04-23 2021-04-24 Outpatient nullFlavo MNA [id number] Memoria 16:00:00 05:59:59 r Neurology 04 radha Isael Villaseñor 2021-04-23 2021-04-23 Outpatient JEANNIE VillaSCHER [id number] 10:00:00 23:59:59 Regulo Garland Garcia 2021-04-23 2021-04-23 Outpatient MHIE MHIE [id number] Memoria 10:00:00 10:00:00 Garland radha Villaseñor 2021-03-30 2021-03-30 (TEL) STLMLC STLMLC [id number] Co mmon 00:00:00 00:00:00 [facility] 2021-03-26 2021-03-26 OFFICE STLMLC STLMLC [id number] Co mmon 00:00:00 00:00:00 VISIT Spirit ESTAB PT - CHI LEVEL 4 [facility] 2021-03-22 2021-03-23 Outpatient nullFlavo MNA [id number] Memoria 18:00:00 04:59:59 r Neurology 03 radha Villaseñor 2021-03-22 2021-03-23 Outpatient nullFlavo MNA [id number] Memoria 18:00:00 04:59:59 r Neurology 03 l Isael Villaseñor 2021-03-22 2021-03-22 Outpatient JEANNIE Villa MHMISCHER [id number] 13:00:00 23:59:59 Regulo 03 Jose 2021-03-22 2021-03-22 Outpatient MHIE MHIE [id number] Memoria 13:00:00 13:00:00 03 radha Villaseñor 2021-03-21 2021-03-21 Ambulatory nullFlavo MNA [id number] Memoria 19:15:00 19:15:00 Pre-Reg r Neurology 02 radha Villaseñor 2021-03-21 2021-03-21 Ambulatory nullFlavo MNA [id number] Memoria 19:15:00 19:15:00 Pre-Reg r Neurology 02 radha Villaseñor 2021-03-21 2021-03-21 Ambulatory nullFlavo MNA [id number] Memoria 15:30:00 15:30:00 Pre-Reg r Neurology 01 radha Villaseñor 2021-03-21 2021-03-21 Ambulatory nullFlavo MNA [id number] Memoria 15:30:00 15:30:00 Pre-Reg r Neurology 01 radha Villaseñor 2021-03-21 2021-03-21 Outpatient MHIE MHIE [id number] Memoria 14:15:00 14:15:00 02 radha Villaseñor 2021-03-21 2021-03-21 Outpatient LACEY VillaSCHALANA ACUÑAMISCHER [id number] 14:15:00 14:15:00 Regulo 02 Jose 2021-03-21 2021-03-21 Outpatient MHIE MHIE [id number] Memoria 10:30:00 10:30:00 01 radha Villaseñor 2021-03-21 2021-03-21 Outpatient LACEY VillaSCHALANA ACUÑAMISCHER [id number] 10:30:00 10:30:00 Regulo Jose 2021-03-13 2021-03-13 (TEL) STLMLC STLMLC [id number] Co mmon 00:00:00 00:00:00 [facility] 2021-03-07 2021-03-07 (TEL) STLMLC STLMLC [id number] Co mmon 00:00:00 00:00:00 [facility] 2021-02-26 2021-02-26 OFFICE STLMLC STLMLC [id number] Co mmon 00:00:00 00:00:00 VISIT [facility] LEVEL 4 [facility] 2021-02-21 2021-02-22 Outpatient nullFlavo MNA [id number] Memoria 18:15:00 04:59:59 r Neurology 00 l Isael Villaseñor 2021-02-21 2021-02-22 Outpatient nullFlavo MNA [id number] Memoria 18:15:00 04:59:59 r Neurology 00 l Isael Villaseñor 2021-02-21 2021-02-21 Outpatient Daisy MISCHER MHMISCHER [id number] 13:15:00 23:59:59 Regulo 00 Jose 2021-02-21 2021-02-21 Outpatient MHIE MHIE [id number] Memoria 13:15:00 13:15:00 00 l [place] 2021-01-18 2021-01-18 Outpatient STLMLC STLMLC [id number] Common 00:00:00 00:00:00 [facility] 2020-12-20 2020-12-20 Outpatient STLMLC STLMLC [id number] Common 00:00:00 00:00:00 [facility] 2020-12-01 2020-12-01 Outpatient STLMLC STLMLC [id number] Common 00:00:00 00:00:00 [facility] 2020-11-30 2020-11-30 Outpatient STLMLC STLMLC [id number] Common 00:00:00 00:00:00 [facility] 2020-11-21 2020-11-21 Outpatient STLMLC STLMLC [id number] Common 00:00:00 00:00:00 [facility] 2020-10-18 2020-10-18 Outpatient STLMLC STLMLC [id number] Common 00:00:00 00:00:00 [facility] 2020-10-06 2020-10-06 Outpatient STLMLC STLMLC [id number] Common 00:00:00 00:00:00 [facility] 2020-09-25 2020-09-25 Outpatient STLMLC STLMLC [id number] Common 00:00:00 00:00:00 [facility] 2020-09-15 2020-09-15 Outpatient Yan_W MMG MMG [id number] [place] 07:15:00 07:15:00 0517 [facility] 2020-09-14 2020-09-14 Outpatient Yan_W MMG MMG [id number] [place] 03:44:00 03:44:00 0429 Medical Group 2020-09-14 2020-09-14 Outpatient Yan_W MMG MMG [id number] [place] 03:44:00 03:44:00 0430 [facility] 2020-09-14 2020-09-14 SHUN Garcia [place] - [id number] [place] 00:00:00 00:00:00 MD: Ck Plata [facility] [address], [facility], Otolaryngol [facility] [address] , Ph. 2020-09-13 2020-09-13 Outpatient STLMLC STLMLC [id number] Common 00:00:00 00:00:00 [facility] 2020-09-13 2020-09-13 Outpatient STLMLC STLMLC [id number] Common 00:00:00 00:00:00 [facility] 2020-09-08 2020-09-08 Outpatient Yan_W MMG MMG [id number] [place] 02:57:00 02:57:00 0423 Medical [facility] 2020-09-05 2020-09-05 Outpatient STLMLC STLMLC [id number] Common 00:00:00 00:00:00 [facility] 2020-06-01 2020-06-01 Outpatient Yan_W MMG MMG [id number] [place] 09:10:00 09:10:00 0203 Medical [facility] 2020-05-31 2020-05-31 Outpatient Yan_W MMG MMG [id number] [place] 09:49:00 09:49:00 0113 Medical Group 2020-05-31 2020-05-31 Mansoor KennedySHUN [place] - [id number] [place] 00:00:00 00:00:00 : Ck Plata [facility] [address], [facility], [facility]olaryngol [place] [facility] [address] , Ph. 2020-04-05 2020-04-05 Outpatient Yan_W MMG MMG [id number] [place] 02:30:00 02:30:00 1118 [facility] 2020-03-13 2020-03-13 Outpatient Yan_W MMG MMG [id number] [place] 09:57:00 09:57:00 1031 [facility] 2020-03-13 2020-03-13 Outpatient Yan_W MMG MMG [id number] [place] 09:56:00 09:56:00 1026 Medical Group 2020-03-07 2020-03-07 Outpatient Yan_W MM MMG [id number] [place] 02:52:00 02:52:00 1020 Medical Group 2020-03-07 2020-03-07 Outpatient Yan_W MM MMG [id number] [place] 02:52:00 02:52:00 1025 Medical Group 2020-03-07 2020-03-07 SHUN Garcia [place] - [id number] [place] 00:00:00 00:00:00 : Ck Plata [facility] [address], [facility], Otolaryngol [place] [facility] [address] , Ph. 2020-02-29 2020-02-29 Outpatient Yan_W MM MMG [id number] [place] 12:29:00 12:29:00 1013 [facility] 2019-12-27 2019-12-27 Out[facility] [id number] Common 11:15:00 11:15:00 t [employer] [facility] AppsFunder [facility] 2019-12-27 2019-12-27 Outpatient [facility] [id number] Common 09:19:00 09:19:[address] [facility] 2019-10-26 2019-10-26 Outpatient [facility] [id number] Common 08:15:00 08:15:[address] [facility] 2019-10-20 2019-10-20 Outpatient [facility] [id number] Common 23:40:00 23:40:[address] [facility] 2019-10-20 2019-10-20 Outpatient [facility] [id number] Common 14:40:00 14:40:[address] [facility] 2019-08-19 2019-08-19 Outpatient [facility] [id number] Common 11:54:00 11:54:[address] [facility] 2019-07-25 2019-07-25 Outpatient [facility] [id number] Common 13:11:00 13:11:[address] [facility] 2019-07-20 2019-07-20 Outpatient [facility] [id number] Common 11:00:00 11:00:[address] [facility] 2019-04-24 2019-04-24 Outpatient [facility] [id number] Common 03:26:00 03:26:[address] [facility] 2019-04-20 2019-04-20 Outpatient [facility] [id number] Common 09:40:00 09:40:[address] [facility] 2019-03-22 2019-03-22 Outpatient Judy Kim [id number] Common 14:55:00 14:55:00 Yanick Correa loren DO [facility] 2019-02-12 2019-02-12 Office JOSÉ MIGUEL Littlejohn 1.2.840.114 [id number] 10:42:57 11:02:57 Visit Tom Fishman AMBULATOR 350.1.13.21 Y 0.2.7.2.686 [id number] 2019-01-19 2019-01-19 Outpatient [facility] [id number] Common 14:40:00 14:40:[address] [facility] 2018-11-04 2018-11-04 Outpatient [facility] [id number] Common 12:03:00 12:03:[address] [facility] 2018-08-26 2018-08-26 Outpatient [facility] [id number] Common 11:20:00 11:20:[address] [facility] 2018-08-14 2018-08-14 Outpatient [facility] [id number] Common 14:30:00 14:30:[address] [facility] 2018-08-03 2018-08-03 Outpatient [facility] [id number] Common 12:32:00 12:32:[address] [facility] 2018-06-01 2018-06-01 Outpatient [facility] [id number] Common 10:15:00 10:15:[address] [facility] 2018-03-02 2018-03-02 Outpatient [facility] [id number] Common 09:00:00 09:00:[address] [facility] 2018-01-30 2018-01-30 Outpatient [facility] [id number] Common 11:30:00 11:30:[address] [facility] 2018-01-20 2018-01-20 Outpatient [facility] [id number] Common 09:46:00 09:46:[address] [facility] 2018-01-13 2018-01-13 Outpatient [facility] [id number] Common 10:00:00 10:00:00 t [facility] 2017-12-25 2017-12-25 Outpatient [facility] [id number] Common 10:56:00 10:56:[address] [facility] [address] [facility] 2017-12-09 2017-12-09 [facility] [id number] Common 21:03:00 21:03:[address] [facility] [address] [facility] 2017-12-09 2017-12-09 [facility] [id number] Common 09:45:00 09:45:[address] [facility] [address] [facility] 2017-12-03 2017-12-03 [facility] [id number] Common 10:45:00 10:45:[address] [facility] [address] [facility] 2017-09-05 2017-09-05 Outpatient Tiffanie Morenot [id number] Common 16:00:00 16:00:00 t Urgent Urgent Care S [facility] - [facility] Clinic [facility] 2017-07-11 2017-07-11 Outpatient Yahaira CORONADO, [facility] [id number] 17:58:00 17:58:00 [facility] 2015-08-10 2015-08-10 Outpatient SOURAV CORONADO [facility] [id number] [place] 17:02:00 17:02:00 JACQUI -[id number] [facility] 2015-04-20 2015-04-21 Outpatient SOURAV CORONADO [facility] [id number] [place] 05:46:00 13:55:00 JACQUI -[id number] [facility] 2015-04-03 2015-04-03 Outpatient SOURAV CORONADO [facility] [id number] [place] 09:00:00 09:00:00 JACQUI -[id number] [facility] 2014-12-12 2014-12-12 Outpatient SOURAV CORONADO [facility] [id number] [place] 10:22:00 10:22:00 JACQUI -[id number] [facility] 2014-11-23 2014-11-23 Outpatient [facility]ONAD[facility] [id number] [place] 16:15:00 16:15:00 [id number] [facility] 2014-08-09 2014-08-09 [facility] [id number] [place] 12:50:00 12:50:00 [id number] [facility] Results Test Description Test Time Test Comments Results Result Comments Source EXTERNAL FIT DNA 2022-06-21 10:34:00 Test Item Value Reference Range Interpretation Comme nts CHENCHO (test code = Test Result Negative Negative ? 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 05/30/2022 Community Orders [facility] ([id number])? [address]? [place] [address]? Aissatou Tapia NP? [address]? [place] [address]? ? Colon cancer screening (Pr imary Dx) NEGATIVE TEST RESULT. A negative Cologuard result ray cates a low likelihood that a colorectal cancer (CRC) or advanced adenoma (adenomatous polyps with more advanced pre-malignant f eatures) ?is present. The chance that a person with a negative Cologuard test has a colorectal cancer is less than 1 in 1500 (n egative predictive value >99.9%) or has an ?advanced adenoma i s less than ?5.3% (negative predictive value 94.7%). These data ar e based on a prospective cross-sectional study of 10,000 individu als at average risk for colorectal cancer who were screened w ith both Cologuard and colonoscopy. (Tito TRenuka amador al, N Engl J Med 2014;370(14):4248-4088) The normal value (reference ra nge) for this assay is negative. COLOGUARD RE-SCREENING RECOMME NDATION: Periodic colorectal cancer screening is an important p art of preventive healthcare for asymptomatic individuals at average risk for colorectal cancer. ?Following a negative [place] guard result, the [employer] and U.S. Multi-Soc iety Task Force screening guidelines recommend a Cologuard re-sc reening interval of 3 years. References: [employer] ty Guideline for Colorectal Cancer Screening: https://www.cancer.org/cancer/wlrnv-oxmzvl-filshk/dete ction-diagn osis-staging/acs-recommendations.html.; Curtis CARRILLO, Enzo CR, Trisha RAE, Colorectal Cancer Screening: Recommendati ons for Physicians and Patients from the U.S. Multi-Society Ta sk Force on Colorectal Cancer Screening , Am J Gastroenterology 20 17; [phone]. Lab Normal Interpretation (test code = 19810-0) [facility] METABOLIC PANEL (32017)(NA, K, CL, CO2, GLUCOSE, BUN, CREATININE, CA)2021-11-28 17:43:49 Test Item Value Reference Range Interpretation Comments NA (test code = 141 mmol/L 135-145 9647003006) K (test code = 3.6 mmol/L 3.5-5 6461137501) CL (test code = 104 mmol/L 98-108 8654242897) CO2 TOTAL (test code = 28 mmol/L 23-31 0011971318) AGAP (test code = 2-16 6050890989) BUN (test code = 15 mg/dL 7-23 3400738251) GLUCOSE (test code = 238 mg/dL 70-110 H 7610051349) CREATININE (test code = 0.52 mg/dL 0.5-1.04 5813016958) CALCIUM (test code = 8.6 mg/dL 8.6-10.6 2138826309) eGFR (test code = mL/min/1.73m2 3935875697) CHENCHO (test code = CHENCHO) Association of Glomerular Filtration Rate (GFR) and Staging of Kidney Disease* + --+ --+ ------+| GFR (mL/min/1.73 m2) ?| With Kidney Damage ?| ?Without Kidney Damage+ --------+ --------+ +| ?>90 ?| ?Stage one ?| ? Normal ?+ ---+ ---+ -------+| ?60-89 ?| ?Stage two ?| ? Decreased GFR ? + --+ --+ ------+| ?30-59 ?| ?Stage three ?| ? Stage three ? + --+ --+ ------+| ?15-29 ?| ?Stage four ? | ? Stage four ?+ ---+ ---+ -------+| ?<15 (or dialysis) ? ?| ?Stage five ? | ? Stage five ?+ ---+ ---+ -------+ *Each stage assumes the associated GFR [...] or abnormalities in imaging tests). Lab Interpretation Abnormal (test code = 96658-9) [id number] 17:36:04 Test Item Value Reference Range Interpretation Comments NT-proBNP (test code 977 pg/mL See_Comment H [Autom ated = [id number]) message] The system which generated this result transmitted reference range : <=125. The reference range was not used to interpret this result as normal/abnormal . CHENCHO (test code = CHENCHO) Biotin has been reported to cause a negative bias, interpret results relative to patient's use of biotin. Lab Interpretation Abnormal (test code = 74578-3) [facility] 17:29:44 Test Item Value Reference Range Interpretation Comments MAGNESIUM (test code = 8012983999) 1.8 mg/dL 1.7-2.4 Lab Interpretation (test code = Normal 46545-9) [facility] [id number] 00:00:00 Test Item Value Reference Range Interpretation Comments A1C (test code = 4548-4) 6.3 HEMOGLOBIN [id number] 00:00:00 Test Item Value Reference Range Interpretation Comments A1C (test code = 4548-4) 6.3 SYXKGHVDFP9577-63-96 12:55:00 Test Item Value Reference Range Interpretation Comments C-REACTIVE PROTEIN (test code = 2.9 C-REACTIVE PROTEIN) [facility]LIXPTNXQF2375[facility] 12:55:00 Test Item Value Reference Range Interpretation Comments Basophils # (test code 29 See_Comment [Aut omated message] The = Basophils #) system which generated this result tra nsmitted reference range : <=200. The reference r brice was not used to int erpret this result as normal/abnormal . [facility]2021-10-07 12:55:00 Test Item Value Reference Range Interpretation Comments Vitamin B12 Lvl (test code = Vitamin 014 240-9328 B12 Lvl) [facility]2021-10-07 12:55:00 Test Item Value Reference Range Interpretation Comments Glucose Lvl (test code = Glucose Lvl) 151 65-99 [place] 094531-10-07 12:55:00 Test Item Value Reference Range Interpretation Comments BUN (test code = BUN) 17 7-25 [facility]OxydqhrDSLJMOHKUI8309-81-13 12:55:00 Test Item Value Reference Range Interpretation Comments Segs (test code = Segs) 65.4 [facility]2021-10-07 12:55:00 Test Item Value Reference Range Interpretation Comments Creatinine Lvl (test code = Creatinine 0.49 0.50-1.05 Lvl) [place] 094531-10-07 12:55:00 Test Item Value Reference Range Interpretation Comments eGFR NON-AFR. ECUADOREAN (test code = 107 eGFR NON-AFR. ECUADOREAN) [place] 094531-10-07 12:55:00 Test Item Value Reference Range Interpretation Comments eGFR (test code = eGFR 124 ) [place] 094531-10-07 12:55:00 Test Item Value Reference Range Interpretation Comments B/C Ratio (test code = B/C Ratio) 35 6-22 [place] 094531-10-07 12:55:00 Test Item Value Reference Range Interpretation Comments Sodium Lvl (test code = Sodium Lvl) 140 135-146 [place] 094531-10-07 12:55:00 Test Item Value Reference Range Interpretation Comments Potassium Lvl (test code = Potassium 4.0 3.5-5.3 Lvl) [place] 094531-10-07 12:55:00 Test Item Value Reference Range Interpretation Comments Chloride Lvl (test code = Chloride Lvl) 105 98-110 [place] 094531-10-07 12:55:00 Test Item Value Reference Range Interpretation Comments CO2 (test code = CO2) 29 20-32 [facility]2021-10-07 12:55:00 Test Item Value Reference Range Interpretation Comments Calcium Lvl (test code = Calcium Lvl) 8.7 8.6-10.4 [place] 094531-10-07 12:55:00 Test Item Value Reference Range Interpretation Comments Total Protein (test code = Total 6.8 6.1-8.1 Protein) [facility] HospitalHffuxsgFIVIVYQQQD5395-34-38 12:55:00 Test Item Value Reference Range Interpretation Comments Lymphocytes (test code = Lymphocytes) 25.2 [place] 094531-10-07 12:55:00 Test Item Value Reference Range Interpretation Comments Albumin Lvl (test code = Albumin Lvl) 3.7 3.6-5.1 [place] 094531-10-07 12:55:00 Test Item Value Reference Range Interpretation Comments Globulin (test code = Globulin) 3.1 1.9-3.7 [place] 094531-10-07 12:55:00 Test Item Value Reference Range Interpretation Comments A/G Ratio (test code = A/G Ratio) 1.2 1.0-2.5 [place] 094531-10-07 12:55:00 Test Item Value Reference Range Interpretation Comments Bili Total (test code = Bili Total) 0.6 0.2-1.2 [place] 094531-10-07 12:55:00 Test Item Value Reference Range Interpretation Comments Alk Phos (test code = Alk Phos) 59 37-153 [place] 094531-10-07 12:55:00 Test Item Value Reference Range Interpretation Comments ASPARTATE TRANSAMINASE (test code = 18 10-35 ASPARTATE TRANSAMINASE) [place] 094531-10-07 12:55:00 Test Item Value Reference Range Interpretation Comments ALANINE AMINOTRANSFERASE (test code = 23 6-29 ALANINE AMINOTRANSFERASE) [place] 944341-10-07 12:55:00 Test Item Value Reference Range Interpretation Comments WBC X 10x3 (test code = WBC X 10x3) 4.8 3.8-10.8 [place] 944341-10-07 12:55:00 Test Item Value Reference Range Interpretation Comments RBC X 10x6 (test code = RBC X 10x6) 4.50 3.80-5.10 [facility] HospitalSwuvmsoETZKONOGPT7061-89-55 12:55:00 Test Item Value Reference Range Interpretation Comments Hgb (test code = Hgb) 12.1 11.7-15.5 [facility] HospitalWrgwxrzMVHMNGFDIJ7412-06-74 12:55:00 Test Item Value Reference Range Interpretation Comments Monocytes (test code = Monocytes) 7.3 [facility] HospitalMurlergSUUCIWBVMQ0881-21-19 12:55:00 Test Item Value Reference Range Interpretation Comments Hct (test code = Hct) 37.8 35.0-45.0 [facility] HospitalGuhpedfGSBYUFEIPT2287-35-05 12:55:00 Test Item Value Reference Range Interpretation Comments MCV (test code = MCV) 84.0 80.0-100.0 [facility] HospitalGnprjrtELKDQGZAGR6473-09-17 12:55:00 Test Item Value Reference Range Interpretation Comments MCH (test code = MCH) 26.9 pg 27.0-33.0 [place] 944341-10-07 12:55:00 Test Item Value Reference Range Interpretation Comments MCHC (test code = MCHC) 32.0 32.0-36.0 [facility] HospitalDnxiwdmXTNLLJCHCC9765-21-75 12:55:00 Test Item Value Reference Range Interpretation Comments RDW (test code = RDW) 14.0 11.0-15.0 [facility] HospitalQfmifcrMVZCOMMPOZ3584-20-36 12:55:00 Test Item Value Reference Range Interpretation Comments Platelet (test code = Platelet) 151 140-400 [facility] HospitalWjufbcdPXJLXSNKWC3272-03-76 12:55:00 Test Item Value Reference Range Interpretation Comments MPV (test code = MPV) 12.1 7.5-12.5 [facility] HospitalTwojbvsKLKUVZOMHU9841-39-78 12:55:00 Test Item Value Reference Range Interpretation Comments Neutrophils # (test code = Neutrophils 3139 7822-9759 #) [facility] HospitalSllhtszRRCUGVDQKC7699-32-10 12:55:00 Test Item Value Reference Range Interpretation Comments Lymphocytes # (test code = Lymphocytes 6350 654-4670 #) [facility] HospitalUvjjlkuJFYWJVUTMF1867-49-87 12:55:00 Test Item Value Reference Range Interpretation Comments Monocytes # (test code = Monocytes #) 350 200-950 [facility] HospitalWzncmtvWIJKHJYZRY5015-36-41 12:55:00 Test Item Value Reference Range Interpretation Comments Eosinophils (test code = Eosinophils) 1.5 [facility] HospitalYvbogmaTDNPFTJDCQ6295-75-21 12:55:00 Test Item Value Reference Range Interpretation Comments Eosinophils # (test code = Eosinophils 72 15-500 #) [facility] HospitalKukhkttRLMMRGQXYT9175-91-95 12:55:00 Test Item Value Reference Range Interpretation Comments Basophils # (test code 29 See_Comment [Aut omated message] The = Basophils #) system which generated this result tra nsmitted reference range : <=200. The reference r brice was not used to int erpret this result as normal/abnormal . [facility] HospitalTkshfgqTOYKWXACJB1911-72-39 12:55:00 Test Item Value Reference Range Interpretation Comments Segs (test code = Segs) 65.4 [facility] HospitalNbpoiirOSZCIASZTT7376-89-09 12:55:00 Test Item Value Reference Range Interpretation Comments Lymphocytes (test code = Lymphocytes) 25.2 [facility] HospitalPmabertSPPDFIVKWR2028-44-34 12:55:00 Test Item Value Reference Range Interpretation Comments Monocytes (test code = Monocytes) 7.3 [facility] HospitalThxvyieZLTWKAZIOZ9242-71-17 12:55:00 Test Item Value Reference Range Interpretation Comments Eosinophils (test code = Eosinophils) 1.5 [facility] HospitalDkmldykPVVFCEHRMV7083-65-60 12:55:00 Test Item Value Reference Range Interpretation Comments Basophils (test code = Basophils) 0.6 [facility] HospitalXyequhiHGWBGZTRTK1396-20-61 12:55:00 Test Item Value Reference Range Interpretation Comments Sed Rate (test code = Sed Rate) 22 [facility]rylljPDFTBQWUOO8760-93-41 12:55:00 Test Item Value Reference Range Interpretation Comments C-REACTIVE PROTEIN (test code = 2.9 C-REACTIVE PROTEIN) [facility] HospitalYmtgzenZNVBIXAVSV8486-12-92 12:55:00 Test Item Value Reference Range Interpretation Comments Basophils (test code = Basophils) 0.6 [facility] YGQVQ6214-20-75 12:55:00 Test Item Value Reference Range Interpretation Comments Vitamin B12 Lvl (test code = Vitamin 565 504-3938 B12 Lvl) [facility]2021-10-07 12:55:00 Test Item Value Reference Range Interpretation Comments Glucose Lvl (test code = Glucose Lvl) 151 65-99 [facility]2021-10-07 12:55:00 Test Item Value Reference Range Interpretation Comments BUN (test code = BUN) 17 7-25 [facility] HospitalGzywhtfFSLSXHRSVJ4595-11-49 12:55:00 Test Item Value Reference Range Interpretation Comments Sed Rate (test code = Sed Rate) 22 [place] 094531-10-07 12:55:00 Test Item Value Reference Range Interpretation Comments Creatinine Lvl (test code = Creatinine 0.49 0.50-1.05 Lvl) [place] 094531-10-07 12:55:00 Test Item Value Reference Range Interpretation Comments eGFR NON-AFR. ECUADOREAN (test code = 107 eGFR NON-AFR. ECUADOREAN) [facility]2021-10-07 12:55:00 Test Item Value Reference Range Interpretation Comments eGFR (test code = eGFR 124 ) [place] 094531-10-07 12:55:00 Test Item Value Reference Range Interpretation Comments B/C Ratio (test code = B/C Ratio) 35 6-22 [place] 094531-10-07 12:55:00 Test Item Value Reference Range Interpretation Comments Sodium Lvl (test code = Sodium Lvl) 140 135-146 [place] 094531-10-07 12:55:00 Test Item Value Reference Range Interpretation Comments Potassium Lvl (test code = Potassium 4.0 3.5-5.3 Lvl) [facility]2021-10-07 12:55:00 Test Item Value Reference Range Interpretation Comments Chloride Lvl (test code = Chloride Lvl) 105 98-110 [facility]2021-10-07 12:55:00 Test Item Value Reference Range Interpretation Comments CO2 (test code = CO2) 29 20-32 [place] 094531-10-07 12:55:00 Test Item Value Reference Range Interpretation Comments Calcium Lvl (test code = Calcium Lvl) 8.7 8.6-10.4 [place] 094531-10-07 12:55:00 Test Item Value Reference Range Interpretation Comments Creatinine Lvl (test code = Creatinine 0.49 0.50-1.05 Lvl) [facility]2021-10-07 12:55:00 Test Item Value Reference Range Interpretation Comments Total Protein (test code = Total 6.8 6.1-8.1 Protein) [facility]MaooekjWTBMCIUKAI5152-25-84 12:55:00 Test Item Value Reference Range Interpretation Comments C-REACTIVE PROTEIN (test code = 2.9 C-REACTIVE PROTEIN) [place] 094531-10-07 12:55:00 Test Item Value Reference Range Interpretation Comments Albumin Lvl (test code = Albumin Lvl) 3.7 3.6-5.1 [place] 094531-10-07 12:55:00 Test Item Value Reference Range Interpretation Comments Globulin (test code = Globulin) 3.1 1.9-3.7 [place] 094531-10-07 12:55:00 Test Item Value Reference Range Interpretation Comments A/G Ratio (test code = A/G Ratio) 1.2 1.0-2.5 [place] 094531-10-07 12:55:00 Test Item Value Reference Range Interpretation Comments eGFR NON-AFR. ECUADOREAN (test code = 107 eGFR NON-AFR. ECUADOREAN) [place] 094531-10-07 12:55:00 Test Item Value Reference Range Interpretation Comments Bili Total (test code = Bili Total) 0.6 0.2-1.2 [place] 094531-10-07 12:55:00 Test Item Value Reference Range Interpretation Comments Alk Phos (test code = Alk Phos) 59 37-153 [place] 094531-10-07 12:55:00 Test Item Value Reference Range Interpretation Comments ASPARTATE TRANSAMINASE (test code = 18 10-35 ASPARTATE TRANSAMINASE) [place] 094531-10-07 12:55:00 Test Item Value Reference Range Interpretation Comments ALANINE AMINOTRANSFERASE (test code = 23 6-29 ALANINE AMINOTRANSFERASE) [place] 944341-10-07 12:55:00 Test Item Value Reference Range Interpretation Comments WBC X 10x3 (test code = WBC X 10x3) 4.8 3.8-10.8 [place] 094531-10-07 12:55:00 Test Item Value Reference Range Interpretation Comments eGFR (test code = eGFR 124 ) [facility] HospitalSbzixisQSCKZHYMZK4690-65-12 12:55:00 Test Item Value Reference Range Interpretation Comments RBC X 10x6 (test code = RBC X 10x6) 4.50 3.80-5.10 [place] 944341-10-07 12:55:00 Test Item Value Reference Range Interpretation Comments Hgb (test code = Hgb) 12.1 11.7-15.5 [facility] HospitalGspcnktRWNWMRLJNN0516-88-11 12:55:00 Test Item Value Reference Range Interpretation Comments Hct (test code = Hct) 37.8 35.0-45.0 [facility] HospitalMvhrftbVMLDWIHJFN8805-41-96 12:55:00 Test Item Value Reference Range Interpretation Comments MCV (test code = MCV) 84.0 80.0-100.0 [facility] HospitalNptayacYENVITNIMZ7474-55-36 12:55:00 Test Item Value Reference Range Interpretation Comments MCH (test code = MCH) 26.9 pg 27.0-33.0 [facility]2021-10-07 12:55:00 Test Item Value Reference Range Interpretation Comments B/C Ratio (test code = B/C Ratio) 35 6-22 [facility] HospitalEgavuvfZCXOFPSSER5203-15-73 12:55:00 Test Item Value Reference Range Interpretation Comments MCHC (test code = MCHC) 32.0 32.0-36.0 [facility] HospitalDptnojwERISWNWLJH7079-14-33 12:55:00 Test Item Value Reference Range Interpretation Comments RDW (test code = RDW) 14.0 11.0-15.0 [facility] HospitalDywndbzYNMZWVGJFA5595-16-89 12:55:00 Test Item Value Reference Range Interpretation Comments Platelet (test code = Platelet) 151 140-400 [facility] HospitalOlxpgxjNAZJGNPIAY6122-02-80 12:55:00 Test Item Value Reference Range Interpretation Comments MPV (test code = MPV) 12.1 7.5-12.5 [facility] HospitalJuwmhcyNYQMKOQRZJ0194-05-05 12:55:00 Test Item Value Reference Range Interpretation Comments Neutrophils # (test code = Neutrophils 8599 1525-1766 #) [facility] HospitalPgwqfviJZNPDQCGCU9270-99-04 12:55:00 Test Item Value Reference Range Interpretation Comments Lymphocytes # (test code = Lymphocytes 4722 981-1777 #) [facility]2021-10-07 12:55:00 Test Item Value Reference Range Interpretation Comments Sodium Lvl (test code = Sodium Lvl) 140 135-146 [facility] HospitalNjczihbQBJFRSMGWR0366-40-29 12:55:00 Test Item Value Reference Range Interpretation Comments Monocytes # (test code = Monocytes #) 350 200-950 [place] 944341-10-07 12:55:00 Test Item Value Reference Range Interpretation Comments Eosinophils # (test code = Eosinophils 72 15-500 #) [facility] HospitalQjouhkrAZDWTQGWZW6861-59-15 12:55:00 Test Item Value Reference Range Interpretation Comments Basophils # (test code 29 See_Comment [Aut omated message] The = Basophils #) system which generated this result tra nsmitted reference range : <=200. The reference r brice was not used to int erpret this result as normal/abnormal . [facility] HospitalJjpjpszLBKMLCNRGK6439-29-39 12:55:00 Test Item Value Reference Range Interpretation Comments Segs (test code = Segs) 65.4 [facility]2021-10-07 12:55:00 Test Item Value Reference Range Interpretation Comments Potassium Lvl (test code = Potassium 4.0 3.5-5.3 Lvl) [facility] HospitalCglvvgpWLADPUMHCX9221-57-21 12:55:00 Test Item Value Reference Range Interpretation Comments Lymphocytes (test code = Lymphocytes) 25.2 [facility] HospitalJugnaltUBYAQTSOWP6901-33-99 12:55:00 Test Item Value Reference Range Interpretation Comments Monocytes (test code = Monocytes) 7.3 [facility] HospitalQdhuzrpNOCKFFWFKM9841-30-95 12:55:00 Test Item Value Reference Range Interpretation Comments Eosinophils (test code = Eosinophils) 1.5 [facility] HospitalRhqfdawELTNWSBYSP2602-26-66 12:55:00 Test Item Value Reference Range Interpretation Comments Basophils (test code = Basophils) 0.6 [facility] HospitalUuinphgAMMSQCAAQT2643-42-11 12:55:00 Test Item Value Reference Range Interpretation Comments Sed Rate (test code = Sed Rate) 22 [facility]2021-10-07 12:55:00 Test Item Value Reference Range Interpretation Comments Chloride Lvl (test code = Chloride Lvl) 105 98-110 [facility]NudmomuYEIWNJZDFB5019-27-83 12:55:00 Test Item Value Reference Range Interpretation Comments C-REACTIVE PROTEIN (test code = 2.9 C-REACTIVE PROTEIN) [facility]2021-10-07 12:55:00 Test Item Value Reference Range Interpretation Comments Vitamin B12 Lvl (test code = Vitamin 800 820-5910 B12 Lvl) [facility]2021-10-07 12:55:00 Test Item Value Reference Range Interpretation Comments Glucose Lvl (test code = Glucose Lvl) 151 65-99 [facility]2021-10-07 12:55:00 Test Item Value Reference Range Interpretation Comments BUN (test code = BUN) 17 7-25 [place] 094531-10-07 12:55:00 Test Item Value Reference Range Interpretation Comments CO2 (test code = CO2) 29 20-32 [place] 094531-10-07 12:55:00 Test Item Value Reference Range Interpretation Comments Calcium Lvl (test code = Calcium Lvl) 8.7 8.6-10.4 [place] 094531-10-07 12:55:00 Test Item Value Reference Range Interpretation Comments Total Protein (test code = Total 6.8 6.1-8.1 Protein) [place] 094531-10-07 12:55:00 Test Item Value Reference Range Interpretation Comments Albumin Lvl (test code = Albumin Lvl) 3.7 3.6-5.1 [place] 094531-10-07 12:55:00 Test Item Value Reference Range Interpretation Comments Globulin (test code = Globulin) 3.1 1.9-3.7 [place] 094531-10-07 12:55:00 Test Item Value Reference Range Interpretation Comments A/G Ratio (test code = A/G Ratio) 1.2 1.0-2.5 [facility]2021-10-07 12:55:00 Test Item Value Reference Range Interpretation Comments Bili Total (test code = Bili Total) 0.6 0.2-1.2 [facility]2021-10-07 12:55:00 Test Item Value Reference Range Interpretation Comments Alk Phos (test code = Alk Phos) 59 37-153 [facility]2021-10-07 12:55:00 Test Item Value Reference Range Interpretation Comments ASPARTATE TRANSAMINASE (test code = 18 10-35 ASPARTATE TRANSAMINASE) [facility]2021-10-07 12:55:00 Test Item Value Reference Range Interpretation Comments ALANINE AMINOTRANSFERASE (test code = 23 6-29 ALANINE AMINOTRANSFERASE) [facility] HospitalNketqqqVOYESDUIKU2996-66-55 12:55:00 Test Item Value Reference Range Interpretation Comments WBC X 10x3 (test code = WBC X 10x3) 4.8 3.8-10.8 [place] 944341-10-07 12:55:00 Test Item Value Reference Range Interpretation Comments RBC X 10x6 (test code = RBC X 10x6) 4.50 3.80-5.10 [place] 944341-10-07 12:55:00 Test Item Value Reference Range Interpretation Comments Hgb (test code = Hgb) 12.1 11.7-15.5 [place] [address]-10-07 12:55:00 Test Item Value Reference Range Interpretation Comments Hct (test code = Hct) 37.8 35.0-45.0 [place] 944341-10-07 12:55:00 Test Item Value Reference Range Interpretation Comments MCV (test code = MCV) 84.0 80.0-100.0 [place] 944341-10-07 12:55:00 Test Item Value Reference Range Interpretation Comments MCH (test code = MCH) 26.9 pg 27.0-33.0 [place] 944341-10-07 12:55:00 Test Item Value Reference Range Interpretation Comments MCHC (test code = MCHC) 32.0 32.0-36.0 [place] [address]-10-07 12:55:00 Test Item Value Reference Range Interpretation Comments RDW (test code = RDW) 14.0 11.0-15.0 [place] 944341-10-07 12:55:00 Test Item Value Reference Range Interpretation Comments Platelet (test code = Platelet) 151 140-400 [facility] HospitalFofhrkpDFMLDHIZMW6840-74-43 12:55:00 Test Item Value Reference Range Interpretation Comments MPV (test code = MPV) 12.1 7.5-12.5 [facility] HospitalXgslksqWLZYEGEQDC7621-61-08 12:55:00 Test Item Value Reference Range Interpretation Comments Neutrophils # (test code = Neutrophils 3139 3530-3173 #) [place] 944341-10-07 12:55:00 Test Item Value Reference Range Interpretation Comments Lymphocytes # (test code = Lymphocytes 4600 159-6854 #) [facility] HospitalUrymruzRECTENRSST5974-45-81 12:55:00 Test Item Value Reference Range Interpretation Comments Monocytes # (test code = Monocytes #) 350 200-950 [place] 944341-10-07 12:55:00 Test Item Value Reference Range Interpretation Comments Eosinophils # (test code = Eosinophils 72 15-500 #) [facility] HospitalIpundayXSVYTFWKYZ6871-62-77 12:55:00 Test Item Value Reference Range Interpretation Comments Basophils # (test code 29 See_Comment [Aut omated message] The = Basophils #) system which generated this result tra nsmitted reference range : <=200. The reference r brice was not used to int erpret this result as normal/abnormal . [facility] HospitalIdljjsxFKMFSKKPXJ2994-60-80 12:55:00 Test Item Value Reference Range Interpretation Comments Segs (test code = Segs) 65.4 [place] 944341-10-07 12:55:00 Test Item Value Reference Range Interpretation Comments Lymphocytes (test code = Lymphocytes) 25.2 [place] 944341-10-07 12:55:00 Test Item Value Reference Range Interpretation Comments Monocytes (test code = Monocytes) 7.3 [place] 944341-10-07 12:55:00 Test Item Value Reference Range Interpretation Comments Eosinophils (test code = Eosinophils) 1.5 [place] 944341-10-07 12:55:00 Test Item Value Reference Range Interpretation Comments Basophils (test code = Basophils) 0.6 [place] 944341-10-07 12:55:00 Test Item Value Reference Range Interpretation Comments Sed Rate (test code = Sed Rate) 22 [facility] CenterGemvsdzWOPCQZGFCA3091-95-58 12:55:00 Test Item Value Reference Range Interpretation Comments C-REACTIVE PROTEIN (test code = 2.9 C-REACTIVE PROTEIN) [facility]2021-10-07 12:55:00 Test Item Value Reference Range Interpretation Comments Vitamin B12 Lvl (test code = Vitamin [phone] B12 Lvl) [facility]2021-10-07 12:55:00 Test Item Value Reference Range Interpretation Comments Glucose Lvl (test code = Glucose Lvl) 151 65-99 [facility]2021-10-07 12:55:00 Test Item Value Reference Range Interpretation Comments BUN (test code = BUN) 17 7-25 [place] 094531-10-07 12:55:00 Test Item Value Reference Range Interpretation Comments Creatinine Lvl (test code = Creatinine 0.49 0.50-1.05 Lvl) [facility]2021-10-07 12:55:00 Test Item Value Reference Range Interpretation Comments eGFR NON-AFR. ECUADOREAN (test code = 107 eGFR NON-AFR. ECUADOREAN) [place] 094531-10-07 12:55:00 Test Item Value Reference Range Interpretation Comments eGFR (test code = eGFR 124 ) [place] 094531-10-07 12:55:00 Test Item Value Reference Range Interpretation Comments B/C Ratio (test code = B/C Ratio) 35 6-22 [place] 094531-10-07 12:55:00 Test Item Value Reference Range Interpretation Comments Sodium Lvl (test code = Sodium Lvl) 140 135-146 [place] 094531-10-07 12:55:00 Test Item Value Reference Range Interpretation Comments Potassium Lvl (test code = Potassium 4.0 3.5-5.3 Lvl) [place] 094531-10-07 12:55:00 Test Item Value Reference Range Interpretation Comments Chloride Lvl (test code = Chloride Lvl) 105 98-110 [place] 094531-10-07 12:55:00 Test Item Value Reference Range Interpretation Comments CO2 (test code = CO2) 29 20-32 [place] 094531-10-07 12:55:00 Test Item Value Reference Range Interpretation Comments Calcium Lvl (test code = Calcium Lvl) 8.7 8.6-10.4 [facility]2021-10-07 12:55:00 Test Item Value Reference Range Interpretation Comments Total Protein (test code = Total 6.8 6.1-8.1 Protein) [facility]2021-10-07 12:55:00 Test Item Value Reference Range Interpretation Comments Albumin Lvl (test code = Albumin Lvl) 3.7 3.6-5.1 [place] 094531-10-07 12:55:00 Test Item Value Reference Range Interpretation Comments Globulin (test code = Globulin) 3.1 1.9-3.7 [place] 094531-10-07 12:55:00 Test Item Value Reference Range Interpretation Comments A/G Ratio (test code = A/G Ratio) 1.2 1.0-2.5 [place] 094531-10-07 12:55:00 Test Item Value Reference Range Interpretation Comments Bili Total (test code = Bili Total) 0.6 0.2-1.2 [facility]2021-10-07 12:55:00 Test Item Value Reference Range Interpretation Comments Alk Phos (test code = Alk Phos) 59 37-153 [facility]2021-10-07 12:55:00 Test Item Value Reference Range Interpretation Comments ASPARTATE TRANSAMINASE (test code = 18 10-35 ASPARTATE TRANSAMINASE) [facility]2021-10-07 12:55:00 Test Item Value Reference Range Interpretation Comments ALANINE AMINOTRANSFERASE (test code = 23 6-29 ALANINE AMINOTRANSFERASE) [place] 944341-10-07 12:55:00 Test Item Value Reference Range Interpretation Comments WBC X 10x3 (test code = WBC X 10x3) 4.8 3.8-10.8 [place] 944341-10-07 12:55:00 Test Item Value Reference Range Interpretation Comments RBC X 10x6 (test code = RBC X 10x6) 4.50 3.80-5.10 [facility] 12:55:00 Test Item Value Reference Range Interpretation Comments Hgb (test code = Hgb) 12.1 11.7-15.5 [place] 944341-10-07 12:55:00 Test Item Value Reference Range Interpretation Comments Hct (test code = Hct) 37.8 35.0-45.0 [place] 944341-10-07 12:55:00 Test Item Value Reference Range Interpretation Comments MCV (test code = MCV) 84.0 80.0-100.0 [place] 944341-10-07 12:55:00 Test Item Value Reference Range Interpretation Comments MCH (test code = MCH) 26.9 pg 27.0-33.0 [place] 944341-10-07 12:55:00 Test Item Value Reference Range Interpretation Comments MCHC (test code = MCHC) 32.0 32.0-36.0 [place] 944341-10-07 12:55:00 Test Item Value Reference Range Interpretation Comments RDW (test code = RDW) 14.0 11.0-15.0 [place] 944341-10-07 12:55:00 Test Item Value Reference Range Interpretation Comments Platelet (test code = Platelet) 151 140-400 [place] 944341-10-07 12:55:00 Test Item Value Reference Range Interpretation Comments MPV (test code = MPV) 12.1 7.5-12.5 [place] 944341-10-07 12:55:00 Test Item Value Reference Range Interpretation Comments Neutrophils # (test code = Neutrophils 3139 4643-8014 #) [facility]DM[facility]PTNNA2872-94-30 12:55:00 Test Item Value Reference Range Interpretation Comments Lymphocytes # (test code = Lymphocytes 3051 003-2280 #) [facility]LlxwqpkDJGGQQDMSO4950-81-23 12:55:00 Test Item Value Reference Range Interpretation Comments Monocytes # (test code = Monocytes #) 350 200-950 [place] 944341-10-07 12:55:00 Test Item Value Reference Range Interpretation Comments Eosinophils # (test code = Eosinophils 72 15-500 #) [facility]oduidqXKZNHPIJHW8213-29-47 12:55:00 Test Item Value Reference Range Interpretation Comments Basophils # (test code 29 See_Comment [Aut omated message] The = Basophils #) system which generated this result tra nsmitted reference range : <=200. The reference r brice was not used to int erpret this result as normal/abnormal . [facility] HospitalYwiovdbWVURHHNDZL4452-67-70 12:55:00 Test Item Value Reference Range Interpretation Comments Segs (test code = Segs) 65.4 [place] 944341-10-07 12:55:00 Test Item Value Reference Range Interpretation Comments Lymphocytes (test code = Lymphocytes) 25.2 [place] 944341-10-07 12:55:00 Test Item Value Reference Range Interpretation Comments Monocytes (test code = Monocytes) 7.3 [place] 944341-10-07 12:55:00 Test Item Value Reference Range Interpretation Comments Eosinophils (test code = Eosinophils) 1.5 [place] 944341-10-07 12:55:00 Test Item Value Reference Range Interpretation Comments Basophils (test code = Basophils) 0.6 [place] 944341-10-07 12:55:00 Test Item Value Reference Range Interpretation Comments Sed Rate (test code = Sed Rate) 22 [place] 551231-10-07 12:55:00 Test Item Value Reference Range Interpretation Comments C-REACTIVE PROTEIN (test code = 2.9 C-REACTIVE PROTEIN) [facility]2021-10-07 12:55:00 Test Item Value Reference Range Interpretation Comments Vitamin B12 Lvl (test code = Vitamin 631 535-1227 B12 Lvl) [place] 094531-10-07 12:55:00 Test Item Value Reference Range Interpretation Comments Glucose Lvl (test code = Glucose Lvl) 151 65-99 [place] 094531-10-07 12:55:00 Test Item Value Reference Range Interpretation Comments BUN (test code = BUN) 17 7-25 [place] 094531-10-07 12:55:00 Test Item Value Reference Range Interpretation Comments Creatinine Lvl (test code = Creatinine 0.49 0.50-1.05 Lvl) [place] 094531-10-07 12:55:00 Test Item Value Reference Range Interpretation Comments eGFR NON-AFR. ECUADOREAN (test code = 107 eGFR NON-AFR. ECUADOREAN) [place] 094531-10-07 12:55:00 Test Item Value Reference Range Interpretation Comments eGFR (test code = eGFR 124 ) [place] 094531-10-07 12:55:00 Test Item Value Reference Range Interpretation Comments B/C Ratio (test code = B/C Ratio) 35 6-22 [place] 094531-10-07 12:55:00 Test Item Value Reference Range Interpretation Comments Sodium Lvl (test code = Sodium Lvl) 140 135-146 [place] 094531-10-07 12:55:00 Test Item Value Reference Range Interpretation Comments Potassium Lvl (test code = Potassium 4.0 3.5-5.3 Lvl) [place] 094531-10-07 12:55:00 Test Item Value Reference Range Interpretation Comments Chloride Lvl (test code = Chloride Lvl) 105 98-110 [place] 094531-10-07 12:55:00 Test Item Value Reference Range Interpretation Comments CO2 (test code = CO2) 29 20-32 [place] 094531-10-07 12:55:00 Test Item Value Reference Range Interpretation Comments Calcium Lvl (test code = Calcium Lvl) 8.7 8.6-10.4 [place] 094531-10-07 12:55:00 Test Item Value Reference Range Interpretation Comments Total Protein (test code = Total 6.8 6.1-8.1 Protein) [place] 094531-10-07 12:55:00 Test Item Value Reference Range Interpretation Comments Albumin Lvl (test code = Albumin Lvl) 3.7 3.6-5.1 [place] [address]-10-07 12:55:00 Test Item Value Reference Range Interpretation Comments Globulin (test code = Globulin) 3.1 1.9-3.7 [place] 094531-10-07 12:55:00 Test Item Value Reference Range Interpretation Comments A/G Ratio (test code = A/G Ratio) 1.2 1.0-2.5 [place] [address]-10-07 12:55:00 Test Item Value Reference Range Interpretation Comments Bili Total (test code = Bili Total) 0.6 0.2-1.2 [place] [address]-10-07 12:55:00 Test Item Value Reference Range Interpretation Comments Alk Phos (test code = Alk Phos) 59 37-153 [facility]2021-10-07 12:55:00 Test Item Value Reference Range Interpretation Comments ASPARTATE TRANSAMINASE (test code = 18 10-35 ASPARTATE TRANSAMINASE) [place] 094531-10-07 12:55:00 Test Item Value Reference Range Interpretation Comments ALANINE AMINOTRANSFERASE (test code = 23 6-29 ALANINE AMINOTRANSFERASE) [place] [address]-10-07 12:55:00 Test Item Value Reference Range Interpretation Comments WBC X 10x3 (test code = WBC X 10x3) 4.8 3.8-10.8 [place] [address]-10-07 12:55:00 Test Item Value Reference Range Interpretation Comments RBC X 10x6 (test code = RBC X 10x6) 4.50 3.80-5.10 [place] [address]-10-07 12:55:00 Test Item Value Reference Range Interpretation Comments Hgb (test code = Hgb) 12.1 11.7-15.5 [place] [address]-10-07 12:55:00 Test Item Value Reference Range Interpretation Comments Hct (test code = Hct) 37.8 35.0-45.0 [place] [address]-10-07 12:55:00 Test Item Value Reference Range Interpretation Comments MCV (test code = MCV) 84.0 80.0-100.0 [place] 944341-10-07 12:55:00 Test Item Value Reference Range Interpretation Comments MCH (test code = MCH) 26.9 pg 27.0-33.0 [place] 944341-10-07 12:55:00 Test Item Value Reference Range Interpretation Comments MCHC (test code = MCHC) 32.0 32.0-36.0 [place] 944341-10-07 12:55:00 Test Item Value Reference Range Interpretation Comments RDW (test code = RDW) 14.0 11.0-15.0 [place] [address]-10-07 12:55:00 Test Item Value Reference Range Interpretation Comments Platelet (test code = Platelet) 151 140-400 [place] 944341-10-07 12:55:00 Test Item Value Reference Range Interpretation Comments MPV (test code = MPV) 12.1 7.5-12.5 [place] 944341-10-07 12:55:00 Test Item Value Reference Range Interpretation Comments Neutrophils # (test code = Neutrophils 3139 0492-2902 #) [facility]fkvfqxXFDSWDWXIK0866-92-71 12:55:00 Test Item Value Reference Range Interpretation Comments Lymphocytes # (test code = Lymphocytes 0363 667-8284 #) [facility] HospitalEniklzqXKVDZDMCXX8089-03-50 12:55:00 Test Item Value Reference Range Interpretation Comments Monocytes # (test code = Monocytes #) 350 200-950 [place] 944341-10-07 12:55:00 Test Item Value Reference Range Interpretation Comments Eosinophils # (test code = Eosinophils 72 15-500 #) [place] 944341-10-07 12:55:00 Test Item Value Reference Range Interpretation Comments Basophils # (test code 29 See_Comment [Aut omated message] The = Basophils #) system which generated this result tra nsmitted reference range : <=200. The reference r brice was not used to int erpret this result as normal/abnormal . [place] 944341-10-07 12:55:00 Test Item Value Reference Range Interpretation Comments Segs (test code = Segs) 65.4 [place] 944341-10-07 12:55:00 Test Item Value Reference Range Interpretation Comments Lymphocytes (test code = Lymphocytes) 25.2 [place] 944341-10-07 12:55:00 Test Item Value Reference Range Interpretation Comments Monocytes (test code = Monocytes) 7.3 [place] 944341-10-07 12:55:00 Test Item Value Reference Range Interpretation Comments Eosinophils (test code = Eosinophils) 1.5 [place] 944341-10-07 12:55:00 Test Item Value Reference Range Interpretation Comments Basophils (test code = Basophils) 0.6 [facility]2021-10-07 12:55:00 Test Item Value Reference Range Interpretation Comments Vitamin B12 Lvl (test code = Vitamin [phone] B12 Lvl) [facility]2021-10-07 12:55:00 Test Item Value Reference Range Interpretation Comments Glucose Lvl (test code = Glucose Lvl) 151 65-99 [facility]2021-10-07 12:55:00 Test Item Value Reference Range Interpretation Comments BUN (test code = BUN) 17 7-25 [place] 094531-10-07 12:55:00 Test Item Value Reference Range Interpretation Comments Creatinine Lvl (test code = Creatinine 0.49 0.50-1.05 Lvl) [facility]2021-10-07 12:55:00 Test Item Value Reference Range Interpretation Comments eGFR NON-AFR. ECUADOREAN (test code = 107 eGFR NON-AFR. ECUADOREAN) [facility]2021-10-07 12:55:00 Test Item Value Reference Range Interpretation Comments eGFR (test code = eGFR 124 ) [place] 094531-10-07 12:55:00 Test Item Value Reference Range Interpretation Comments B/C Ratio (test code = B/C Ratio) 35 6-22 [place] 094531-10-07 12:55:00 Test Item Value Reference Range Interpretation Comments Sodium Lvl (test code = Sodium Lvl) 140 135-146 [facility]2021-10-07 12:55:00 Test Item Value Reference Range Interpretation Comments Potassium Lvl (test code = Potassium 4.0 3.5-5.3 Lvl) [place] 094531-10-07 12:55:00 Test Item Value Reference Range Interpretation Comments Chloride Lvl (test code = Chloride Lvl) 105 98-110 [place] 094531-10-07 12:55:00 Test Item Value Reference Range Interpretation Comments CO2 (test code = CO2) 29 20-32 [place] 094531-10-07 12:55:00 Test Item Value Reference Range Interpretation Comments Calcium Lvl (test code = Calcium Lvl) 8.7 8.6-10.4 [place] 094531-10-07 12:55:00 Test Item Value Reference Range Interpretation Comments Total Protein (test code = Total 6.8 6.1-8.1 Protein) [place] 094531-10-07 12:55:00 Test Item Value Reference Range Interpretation Comments Albumin Lvl (test code = Albumin Lvl) 3.7 3.6-5.1 [place] 094531-10-07 12:55:00 Test Item Value Reference Range Interpretation Comments Globulin (test code = Globulin) 3.1 1.9-3.7 [place] 094531-10-07 12:55:00 Test Item Value Reference Range Interpretation Comments A/G Ratio (test code = A/G Ratio) 1.2 1.0-2.5 [place] 094531-10-07 12:55:00 Test Item Value Reference Range Interpretation Comments Bili Total (test code = Bili Total) 0.6 0.2-1.2 [place] 094531-10-07 12:55:00 Test Item Value Reference Range Interpretation Comments Alk Phos (test code = Alk Phos) 59 37-153 [place] 094531-10-07 12:55:00 Test Item Value Reference Range Interpretation Comments ASPARTATE TRANSAMINASE (test code = 18 10-35 ASPARTATE TRANSAMINASE) [place] 094531-10-07 12:55:00 Test Item Value Reference Range Interpretation Comments ALANINE AMINOTRANSFERASE (test code = 23 6-29 ALANINE AMINOTRANSFERASE) [place] 944341-10-07 12:55:00 Test Item Value Reference Range Interpretation Comments WBC X 10x3 (test code = WBC X 10x3) 4.8 3.8-10.8 [place] 944341-10-07 12:55:00 Test Item Value Reference Range Interpretation Comments RBC X 10x6 (test code = RBC X 10x6) 4.50 3.80-5.10 [place] 944341-10-07 12:55:00 Test Item Value Reference Range Interpretation Comments Hgb (test code = Hgb) 12.1 11.7-15.5 [place] 944341-10-07 12:55:00 Test Item Value Reference Range Interpretation Comments Hct (test code = Hct) 37.8 35.0-45.0 [place] 944341-10-07 12:55:00 Test Item Value Reference Range Interpretation Comments MCV (test code = MCV) 84.0 80.0-100.0 [place] 944341-10-07 12:55:00 Test Item Value Reference Range Interpretation Comments MCH (test code = MCH) 26.9 pg 27.0-33.0 [place] 944341-10-07 12:55:00 Test Item Value Reference Range Interpretation Comments Sed Rate (test code = Sed Rate) 22 [place] 944341-10-07 12:55:00 Test Item Value Reference Range Interpretation Comments MCHC (test code = MCHC) 32.0 32.0-36.0 [place] 944341-10-07 12:55:00 Test Item Value Reference Range Interpretation Comments RDW (test code = RDW) 14.0 11.0-15.0 [facility]GpnnojjIHEOQEPXXE2773-78-92 12:55:00 Test Item Value Reference Range Interpretation Comments Platelet (test code = Platelet) 151 140-400 [facility] HospitalTaluwvmREUCJGUCPI6120-75-86 12:55:00 Test Item Value Reference Range Interpretation Comments MPV (test code = MPV) 12.1 7.5-12.5 [facility] HospitalEbcfngeCOQJSHLIHX7886-12-52 12:55:00 Test Item Value Reference Range Interpretation Comments Neutrophils # (test code = Neutrophils 3139 7872-3912 #) [facility] HospitalArgkfmgJFKFYNBBYM2389-68-99 12:55:00 Test Item Value Reference Range Interpretation Comments Lymphocytes # (test code = Lymphocytes [phone] #) [facility] HospitalCykilzgKAWFPLCTWA3580-79-19 12:55:00 Test Item Value Reference Range Interpretation Comments Monocytes # (test code = Monocytes #) 350 200-950 [place] 944341-10-07 12:55:00 Test Item Value Reference Range Interpretation Comments Eosinophils # (test code = Eosinophils 72 15-500 #) [facility] HospitalNuwaxqfZBQMRHQXEU8082-87-99 12:55:00 Test Item Value Reference Range Interpretation Comments Basophils # (test code 29 See_Comment [Aut omated message] The = Basophils #) system which generated this result tra nsmitted reference range : <=200. The reference r brice was not used to int erpret this result as normal/abnormal . [facility] HospitalXyposawHMSVABKLVH8843-92-90 12:55:00 Test Item Value Reference Range Interpretation Comments Segs (test code = Segs) 65.4 [place] 944341-10-07 12:55:00 Test Item Value Reference Range Interpretation Comments Lymphocytes (test code = Lymphocytes) 25.2 [place] 944341-10-07 12:55:00 Test Item Value Reference Range Interpretation Comments Monocytes (test code = Monocytes) 7.3 [place] 944341-10-07 12:55:00 Test Item Value Reference Range Interpretation Comments Eosinophils (test code = Eosinophils) 1.5 [place] 944341-10-07 12:55:00 Test Item Value Reference Range Interpretation Comments Basophils (test code = Basophils) 0.6 [place] 944341-10-07 12:55:00 Test Item Value Reference Range Interpretation Comments Sed Rate (test code = Sed Rate) 22 [facility]rl[facility]mjTWUKNJWOZE8077-20-37 12:55:00 Test Item Value Reference Range Interpretation Comments C-REACTIVE PROTEIN (test code = 2.9 C-REACTIVE PROTEIN) [place] 551231-10-07 12:55:00 Test Item Value Reference Range Interpretation Comments C-REACTIVE PROTEIN (test code = 2.9 C-REACTIVE PROTEIN) [facility]2021-10-07 12:55:00 Test Item Value Reference Range Interpretation Comments Vitamin B12 Lvl (test code = Vitamin [phone] B12 Lvl) [facility]2021-10-07 12:55:00 Test Item Value Reference Range Interpretation Comments Glucose Lvl (test code = Glucose Lvl) 151 65-99 [facility]2021-10-07 12:55:00 Test Item Value Reference Range Interpretation Comments BUN (test code = BUN) 17 7-25 [facility]2021-10-07 12:55:00 Test Item Value Reference Range Interpretation Comments Vitamin B12 Lvl (test code = Vitamin [phone] B12 Lvl) [place] 094531-10-07 12:55:00 Test Item Value Reference Range Interpretation Comments Creatinine Lvl (test code = Creatinine 0.49 0.50-1.05 Lvl) [place] 094531-10-07 12:55:00 Test Item Value Reference Range Interpretation Comments eGFR NON-AFR. ECUADOREAN (test code = 107 eGFR NON-AFR. ECUADOREAN) [place] 094531-10-07 12:55:00 Test Item Value Reference Range Interpretation Comments eGFR (test code = eGFR 124 ) [place] 094531-10-07 12:55:00 Test Item Value Reference Range Interpretation Comments B/C Ratio (test code = B/C Ratio) 35 6-22 [place] 094531-10-07 12:55:00 Test Item Value Reference Range Interpretation Comments Sodium Lvl (test code = Sodium Lvl) 140 135-146 [place] 094531-10-07 12:55:00 Test Item Value Reference Range Interpretation Comments Potassium Lvl (test code = Potassium 4.0 3.5-5.3 Lvl) [place] 094531-10-07 12:55:00 Test Item Value Reference Range Interpretation Comments Chloride Lvl (test code = Chloride Lvl) 105 98-110 [place] 094531-10-07 12:55:00 Test Item Value Reference Range Interpretation Comments CO2 (test code = CO2) 29 20-32 [place] 094531-10-07 12:55:00 Test Item Value Reference Range Interpretation Comments Calcium Lvl (test code = Calcium Lvl) 8.7 8.6-10.4 [place] 094531-10-07 12:55:00 Test Item Value Reference Range Interpretation Comments Total Protein (test code = Total 6.8 6.1-8.1 Protein) [place] 094531-10-07 12:55:00 Test Item Value Reference Range Interpretation Comments Glucose Lvl (test code = Glucose Lvl) 151 65-99 [place] 094531-10-07 12:55:00 Test Item Value Reference Range Interpretation Comments Albumin Lvl (test code = Albumin Lvl) 3.7 3.6-5.1 [place] 094531-10-07 12:55:00 Test Item Value Reference Range Interpretation Comments Globulin (test code = Globulin) 3.1 1.9-3.7 [place] 094531-10-07 12:55:00 Test Item Value Reference Range Interpretation Comments A/G Ratio (test code = A/G Ratio) 1.2 1.0-2.5 [place] 094531-10-07 12:55:00 Test Item Value Reference Range Interpretation Comments Bili Total (test code = Bili Total) 0.6 0.2-1.2 [place] 094531-10-07 12:55:00 Test Item Value Reference Range Interpretation Comments Alk Phos (test code = Alk Phos) 59 37-153 [facility]2021-10-07 12:55:00 Test Item Value Reference Range Interpretation Comments ASPARTATE TRANSAMINASE (test code = 18 10-35 ASPARTATE TRANSAMINASE) [place] 094531-10-07 12:55:00 Test Item Value Reference Range Interpretation Comments ALANINE AMINOTRANSFERASE (test code = 23 6-29 ALANINE AMINOTRANSFERASE) [place] 944341-10-07 12:55:00 Test Item Value Reference Range Interpretation Comments WBC X 10x3 (test code = WBC X 10x3) 4.8 3.8-10.8 [place] 944341-10-07 12:55:00 Test Item Value Reference Range Interpretation Comments RBC X 10x6 (test code = RBC X 10x6) 4.50 3.80-5.10 [place] 944341-10-07 12:55:00 Test Item Value Reference Range Interpretation Comments Hgb (test code = Hgb) 12.1 11.7-15.5 [place] 094531-10-07 12:55:00 Test Item Value Reference Range Interpretation Comments BUN (test code = BUN) 17 7-25 [place] 944341-10-07 12:55:00 Test Item Value Reference Range Interpretation Comments Hct (test code = Hct) 37.8 35.0-45.0 [place] 944341-10-07 12:55:00 Test Item Value Reference Range Interpretation Comments MCV (test code = MCV) 84.0 80.0-100.0 [place] [address]-10-07 12:55:00 Test Item Value Reference Range Interpretation Comments MCH (test code = MCH) 26.9 pg 27.0-33.0 [facility]KgwzhovHKCYZGYGDZ0245-48-12 12:55:00 Test Item Value Reference Range Interpretation Comments MCHC (test code = MCHC) 32.0 32.0-36.0 [facility] HospitalSpwnervZOVGQWLPWD8609-87-80 12:55:00 Test Item Value Reference Range Interpretation Comments RDW (test code = RDW) 14.0 11.0-15.0 [facility] HospitalUdqtxjaGGTOQGHOXO9016-34-40 12:55:00 Test Item Value Reference Range Interpretation Comments Platelet (test code = Platelet) 151 140-400 [facility] HospitalLvhseupMPFIKENLWM4623-85-12 12:55:00 Test Item Value Reference Range Interpretation Comments MPV (test code = MPV) 12.1 7.5-12.5 [place] 944341-10-07 12:55:00 Test Item Value Reference Range Interpretation Comments Neutrophils # (test code = Neutrophils 3139 3645-0354 #) [facility] HospitalBqiqtvdZMFMKHKKIN5645-37-42 12:55:00 Test Item Value Reference Range Interpretation Comments Lymphocytes # (test code = Lymphocytes [phone] #) [facility] HospitalEtprsvcSBRWHXBTJJ0189-36-55 12:55:00 Test Item Value Reference Range Interpretation Comments Monocytes # (test code = Monocytes #) 350 200-950 [facility]2021-10-07 12:55:00 Test Item Value Reference Range Interpretation Comments Creatinine Lvl (test code = Creatinine 0.49 0.50-1.05 Lvl) [facility] HospitalKxlpwbfLECSDTDAKY4311-33-25 12:55:00 Test Item Value Reference Range Interpretation Comments Eosinophils # (test code = Eosinophils 72 15-500 #) [facility]fiTRVPCWGUTU7438-46-93 12:55:00 Test Item Value Reference Range Interpretation Comments Basophils # (test code 29 See_Comment [Aut omated message] The = Basophils #) system which generated this result tra nsmitted reference range : <=200. The reference r brice was not used to int erpret this result as normal/abnormal . [facility]DpdbmcdGROUXSXHJA8572-37-33 12:55:00 Test Item Value Reference Range Interpretation Comments Segs (test code = Segs) 65.4 [place] [address]-10-07 12:55:00 Test Item Value Reference Range Interpretation Comments Lymphocytes (test code = Lymphocytes) 25.2 [place] 944341-10-07 12:55:00 Test Item Value Reference Range Interpretation Comments Monocytes (test code = Monocytes) 7.3 [place] 944341-10-07 12:55:00 Test Item Value Reference Range Interpretation Comments Eosinophils (test code = Eosinophils) 1.5 [place] [address]-10-07 12:55:00 Test Item Value Reference Range Interpretation Comments Basophils (test code = Basophils) 0.6 [place] [address]-10-07 12:55:00 Test Item Value Reference Range Interpretation Comments Sed Rate (test code = Sed Rate) 22 [place] 551231-10-07 12:55:00 Test Item Value Reference Range Interpretation Comments C-REACTIVE PROTEIN (test code = 2.9 C-REACTIVE PROTEIN) [facility]2021-10-07 12:55:00 Test Item Value Reference Range Interpretation Comments eGFR NON-AFR. ECUADOREAN (test code = 107 eGFR NON-AFR. ECUADOREAN) [facility]2021-10-07 12:55:00 Test Item Value Reference Range Interpretation Comments Vitamin B12 Lvl (test code = Vitamin [phone] B12 Lvl) [facility]2021-10-07 12:55:00 Test Item Value Reference Range Interpretation Comments Glucose Lvl (test code = Glucose Lvl) 151 65-99 [facility]2021-10-07 12:55:00 Test Item Value Reference Range Interpretation Comments BUN (test code = BUN) 17 7-25 [facility]2021-10-07 12:55:00 Test Item Value Reference Range Interpretation Comments eGFR (test code = eGFR 124 ) [facility]2021-10-07 12:55:00 Test Item Value Reference Range Interpretation Comments Creatinine Lvl (test code = Creatinine 0.49 0.50-1.05 Lvl) [facility]2021-10-07 12:55:00 Test Item Value Reference Range Interpretation Comments eGFR NON-AFR. ECUADOREAN (test code = 107 eGFR NON-AFR. ECUADOREAN) [facility]2021-10-07 12:55:00 Test Item Value Reference Range Interpretation Comments eGFR (test code = eGFR 124 ) [facility]2021-10-07 12:55:00 Test Item Value Reference Range Interpretation Comments B/C Ratio (test code = B/C Ratio) 35 6-22 [place] 094531-10-07 12:55:00 Test Item Value Reference Range Interpretation Comments Sodium Lvl (test code = Sodium Lvl) 140 135-146 [place] 094531-10-07 12:55:00 Test Item Value Reference Range Interpretation Comments Potassium Lvl (test code = Potassium 4.0 3.5-5.3 Lvl) [place] 094531-10-07 12:55:00 Test Item Value Reference Range Interpretation Comments Chloride Lvl (test code = Chloride Lvl) 105 98-110 [facility]2021-10-07 12:55:00 Test Item Value Reference Range Interpretation Comments CO2 (test code = CO2) 29 20-32 [place] 094531-10-07 12:55:00 Test Item Value Reference Range Interpretation Comments Calcium Lvl (test code = Calcium Lvl) 8.7 8.6-10.4 [place] 094531-10-07 12:55:00 Test Item Value Reference Range Interpretation Comments Total Protein (test code = Total 6.8 6.1-8.1 Protein) [facility]2021-10-07 12:55:00 Test Item Value Reference Range Interpretation Comments B/C Ratio (test code = B/C Ratio) 35 6-22 [place] 094531-10-07 12:55:00 Test Item Value Reference Range Interpretation Comments Albumin Lvl (test code = Albumin Lvl) 3.7 3.6-5.1 [place] 094531-10-07 12:55:00 Test Item Value Reference Range Interpretation Comments Globulin (test code = Globulin) 3.1 1.9-3.7 [place] 094531-10-07 12:55:00 Test Item Value Reference Range Interpretation Comments A/G Ratio (test code = A/G Ratio) 1.2 1.0-2.5 [place] 094531-10-07 12:55:00 Test Item Value Reference Range Interpretation Comments Bili Total (test code = Bili Total) 0.6 0.2-1.2 [facility]2021-10-07 12:55:00 Test Item Value Reference Range Interpretation Comments Alk Phos (test code = Alk Phos) 59 37-153 [place] 094531-10-07 12:55:00 Test Item Value Reference Range Interpretation Comments ASPARTATE TRANSAMINASE (test code = 18 10-35 ASPARTATE TRANSAMINASE) [place] 094531-10-07 12:55:00 Test Item Value Reference Range Interpretation Comments ALANINE AMINOTRANSFERASE (test code = 23 6-29 ALANINE AMINOTRANSFERASE) [place] 944341-10-07 12:55:00 Test Item Value Reference Range Interpretation Comments WBC X 10x3 (test code = WBC X 10x3) 4.8 3.8-10.8 [place] 944341-10-07 12:55:00 Test Item Value Reference Range Interpretation Comments RBC X 10x6 (test code = RBC X 10x6) 4.50 3.80-5.10 [place] 944341-10-07 12:55:00 Test Item Value Reference Range Interpretation Comments Hgb (test code = Hgb) 12.1 11.7-15.5 [facility]2021-10-07 12:55:00 Test Item Value Reference Range Interpretation Comments Sodium Lvl (test code = Sodium Lvl) 140 135-146 [place] 944341-10-07 12:55:00 Test Item Value Reference Range Interpretation Comments Hct (test code = Hct) 37.8 35.0-45.0 [place] 944341-10-07 12:55:00 Test Item Value Reference Range Interpretation Comments MCV (test code = MCV) 84.0 80.0-100.0 [place] [address]-10-07 12:55:00 Test Item Value Reference Range Interpretation Comments MCH (test code = MCH) 26.9 pg 27.0-33.0 [place] 944341-10-07 12:55:00 Test Item Value Reference Range Interpretation Comments MCHC (test code = MCHC) 32.0 32.0-36.0 [place] 944341-10-07 12:55:00 Test Item Value Reference Range Interpretation Comments RDW (test code = RDW) 14.0 11.0-15.0 [place] [address]-10-07 12:55:00 Test Item Value Reference Range Interpretation Comments Platelet (test code = Platelet) 151 140-400 [facility]HbushotJORQMVDXVR8723-24-44 12:55:00 Test Item Value Reference Range Interpretation Comments MPV (test code = MPV) 12.1 7.5-12.5 [facility] HospitalKtmzbvyXDAYDUSKYU5765-14-13 12:55:00 Test Item Value Reference Range Interpretation Comments Neutrophils # (test code = Neutrophils 3139 9737-6903 #) [facility] HospitalIgdzmhxJMVXPQZMHI5215-91-60 12:55:00 Test Item Value Reference Range Interpretation Comments Lymphocytes # (test code = Lymphocytes 4002 369-7619 #) [facility] HospitalQyqqyekAPTVHGMMNS3801-70-00 12:55:00 Test Item Value Reference Range Interpretation Comments Monocytes # (test code = Monocytes #) 350 200-950 [facility]2021-10-07 12:55:00 Test Item Value Reference Range Interpretation Comments Potassium Lvl (test code = Potassium 4.0 3.5-5.3 Lvl) [facility] HospitalUuehpalOOTUUGUTXK2006-16-84 12:55:00 Test Item Value Reference Range Interpretation Comments Eosinophils # (test code = Eosinophils 72 15-500 #) [facility] HospitalYvbjxmkXNUBGYEHNM2924-54-12 12:55:00 Test Item Value Reference Range Interpretation Comments Basophils # (test code 29 See_Comment [Aut omated message] The = Basophils #) system which generated this result tra nsmitted reference range : <=200. The reference r brice was not used to int erpret this result as normal/abnormal . [facility] HospitalMlvxiwpYHOXUDULMU9526-92-05 12:55:00 Test Item Value Reference Range Interpretation Comments Segs (test code = Segs) 65.4 [place] 944341-10-07 12:55:00 Test Item Value Reference Range Interpretation Comments Lymphocytes (test code = Lymphocytes) 25.2 [place] 944341-10-07 12:55:00 Test Item Value Reference Range Interpretation Comments Monocytes (test code = Monocytes) 7.3 [place] 944341-10-07 12:55:00 Test Item Value Reference Range Interpretation Comments Eosinophils (test code = Eosinophils) 1.5 [facility] HospitalUwtnvudFXSNTZQKCL1667-91-28 12:55:00 Test Item Value Reference Range Interpretation Comments Basophils (test code = Basophils) 0.6 [facility] 12:55:00 Test Item Value Reference Range Interpretation Comments Sed Rate (test code = Sed Rate) 22 [facility]BvmdjeaTAWKJXHWKP0704-83-78 12:55:00 Test Item Value Reference Range Interpretation Comments C-REACTIVE PROTEIN (test code = 2.9 C-REACTIVE PROTEIN) [place] 094531-10-07 12:55:00 Test Item Value Reference Range Interpretation Comments Chloride Lvl (test code = Chloride Lvl) 105 98-110 [facility]2021-10-07 12:55:00 Test Item Value Reference Range Interpretation Comments Vitamin B12 Lvl (test code = Vitamin 697 587-5404 B12 Lvl) [facility]2021-10-07 12:55:00 Test Item Value Reference Range Interpretation Comments Glucose Lvl (test code = Glucose Lvl) 151 65-99 [place] 094531-10-07 12:55:00 Test Item Value Reference Range Interpretation Comments BUN (test code = BUN) 17 7-25 [place] 094531-10-07 12:55:00 Test Item Value Reference Range Interpretation Comments CO2 (test code = CO2) 29 20-32 [place] 094531-10-07 12:55:00 Test Item Value Reference Range Interpretation Comments Creatinine Lvl (test code = Creatinine 0.49 0.50-1.05 Lvl) [facility]2021-10-07 12:55:00 Test Item Value Reference Range Interpretation Comments eGFR NON-AFR. ECUADOREAN (test code = 107 eGFR NON-AFR. ECUADOREAN) [facility]2021-10-07 12:55:00 Test Item Value Reference Range Interpretation Comments eGFR (test code = eGFR 124 ) [facility]2021-10-07 12:55:00 Test Item Value Reference Range Interpretation Comments B/C Ratio (test code = B/C Ratio) 35 6-22 [facility]2021-10-07 12:55:00 Test Item Value Reference Range Interpretation Comments Sodium Lvl (test code = Sodium Lvl) 140 135-146 [place] 094531-10-07 12:55:00 Test Item Value Reference Range Interpretation Comments Potassium Lvl (test code = Potassium 4.0 3.5-5.3 Lvl) [facility]2021-10-07 12:55:00 Test Item Value Reference Range Interpretation Comments Chloride Lvl (test code = Chloride Lvl) 105 98-110 [facility]2021-10-07 12:55:00 Test Item Value Reference Range Interpretation Comments CO2 (test code = CO2) 29 20-32 [facility]2021-10-07 12:55:00 Test Item Value Reference Range Interpretation Comments Calcium Lvl (test code = Calcium Lvl) 8.7 8.6-10.4 [facility]2021-10-07 12:55:00 Test Item Value Reference Range Interpretation Comments Total Protein (test code = Total 6.8 6.1-8.1 Protein) [facility]2021-10-07 12:55:00 Test Item Value Reference Range Interpretation Comments Calcium Lvl (test code = Calcium Lvl) 8.7 8.6-10.4 [facility]2021-10-07 12:55:00 Test Item Value Reference Range Interpretation Comments Albumin Lvl (test code = Albumin Lvl) 3.7 3.6-5.1 [facility]2021-10-07 12:55:00 Test Item Value Reference Range Interpretation Comments Globulin (test code = Globulin) 3.1 1.9-3.7 [facility]2021-10-07 12:55:00 Test Item Value Reference Range Interpretation Comments A/G Ratio (test code = A/G Ratio) 1.2 1.0-2.5 [facility]2021-10-07 12:55:00 Test Item Value Reference Range Interpretation Comments Bili Total (test code = Bili Total) 0.6 0.2-1.2 [facility]2021-10-07 12:55:00 Test Item Value Reference Range Interpretation Comments Alk Phos (test code = Alk Phos) 59 37-153 [facility]2021-10-07 12:55:00 Test Item Value Reference Range Interpretation Comments ASPARTATE TRANSAMINASE (test code = 18 10-35 ASPARTATE TRANSAMINASE) [facility]2021-10-07 12:55:00 Test Item Value Reference Range Interpretation Comments ALANINE AMINOTRANSFERASE (test code = 23 6-29 ALANINE AMINOTRANSFERASE) [facility] HospitalPjrprhtRRVLMEVRNV7318-45-78 12:55:00 Test Item Value Reference Range Interpretation Comments WBC X 10x3 (test code = WBC X 10x3) 4.8 3.8-10.8 [place] 944341-10-07 12:55:00 Test Item Value Reference Range Interpretation Comments RBC X 10x6 (test code = RBC X 10x6) 4.50 3.80-5.10 [place] 944341-10-07 12:55:00 Test Item Value Reference Range Interpretation Comments Hgb (test code = Hgb) 12.1 11.7-15.5 [facility]2021-10-07 12:55:00 Test Item Value Reference Range Interpretation Comments Total Protein (test code = Total 6.8 6.1-8.1 Protein) [facility] HospitalMwcqmznEEQTZIKWPW5327-92-21 12:55:00 Test Item Value Reference Range Interpretation Comments Hct (test code = Hct) 37.8 35.0-45.0 [facility] HospitalTphwcetKYUIYEZWBY8974-02-06 12:55:00 Test Item Value Reference Range Interpretation Comments MCV (test code = MCV) 84.0 80.0-100.0 [place] 944341-10-07 12:55:00 Test Item Value Reference Range Interpretation Comments MCH (test code = MCH) 26.9 pg 27.0-33.0 [facility] HospitalUzupazhTPLBDFABOD9127-71-14 12:55:00 Test Item Value Reference Range Interpretation Comments MCHC (test code = MCHC) 32.0 32.0-36.0 [facility] HospitalXzsttobTIYQWRIUXG7465-42-75 12:55:00 Test Item Value Reference Range Interpretation Comments RDW (test code = RDW) 14.0 11.0-15.0 [place] [address]-10-07 12:55:00 Test Item Value Reference Range Interpretation Comments Platelet (test code = Platelet) 151 140-400 [facility] HospitalJiojtlyPDBHROHWPK9405-07-55 12:55:00 Test Item Value Reference Range Interpretation Comments MPV (test code = MPV) 12.1 7.5-12.5 [facility] HospitalNwjesmbWHYOKODDGM4349-03-20 12:55:00 Test Item Value Reference Range Interpretation Comments Neutrophils # (test code = Neutrophils 6863 3278-4701 #) [facility] HospitalWohpzcsKESZHIWUAT3164-04-51 12:55:00 Test Item Value Reference Range Interpretation Comments Lymphocytes # (test code = Lymphocytes 6162 212-5318 #) [facility] HospitalAajrkwkKHLMBFUABE4913-46-29 12:55:00 Test Item Value Reference Range Interpretation Comments Monocytes # (test code = Monocytes #) 350 200-950 [facility]2021-10-07 12:55:00 Test Item Value Reference Range Interpretation Comments Albumin Lvl (test code = Albumin Lvl) 3.7 3.6-5.1 [facility] HospitalJoxxogwXTMUASCMXO4230-93-99 12:55:00 Test Item Value Reference Range Interpretation Comments Eosinophils # (test code = Eosinophils 72 15-500 #) [facility] HospitalLwkublyTZZGMXGSOT4397-04-79 12:55:00 Test Item Value Reference Range Interpretation Comments Basophils # (test code 29 See_Comment [Aut omated message] The = Basophils #) system which generated this result tra nsmitted reference range : <=200. The reference r brice was not used to int erpret this result as normal/abnormal . [facility] HospitalPmmmoceAPURTSPPKK1747-66-11 12:55:00 Test Item Value Reference Range Interpretation Comments Segs (test code = Segs) 65.4 [facility] HospitalDmnnjenLNUXDIICCB9881-60-95 12:55:00 Test Item Value Reference Range Interpretation Comments Lymphocytes (test code = Lymphocytes) 25.2 [facility] HospitalQbwggaxRKIMEASYBR5547-44-40 12:55:00 Test Item Value Reference Range Interpretation Comments Monocytes (test code = Monocytes) 7.3 [facility] HospitalHejgluqOLWIQMYCIA8641-42-12 12:55:00 Test Item Value Reference Range Interpretation Comments Eosinophils (test code = Eosinophils) 1.5 [facility] HospitalCgkyatfCQKNKHJUWZ1214-39-63 12:55:00 Test Item Value Reference Range Interpretation Comments Basophils (test code = Basophils) 0.6 [place] 944341-10-07 12:55:00 Test Item Value Reference Range Interpretation Comments Sed Rate (test code = Sed Rate) [facility]HervnchUPTZGGWSBE5312-05-46 12:55:00 Test Item Value Reference Range Interpretation Comments C-REACTIVE PROTEIN (test code = 2.9 C-REACTIVE PROTEIN) [facility]2021-10-07 12:55:00 Test Item Value Reference Range Interpretation Comments Globulin (test code = Globulin) 3.1 1.9-3.7 [facility]2021-10-07 12:55:00 Test Item Value Reference Range Interpretation Comments Vitamin B12 Lvl (test code = Vitamin 475 195-8702 B12 Lvl) [place] 094531-10-07 12:55:00 Test Item Value Reference Range Interpretation Comments Glucose Lvl (test code = Glucose Lvl) 151 65-99 [place] 094531-10-07 12:55:00 Test Item Value Reference Range Interpretation Comments BUN (test code = BUN) 17 7-25 [place] 094531-10-07 12:55:00 Test Item Value Reference Range Interpretation Comments A/G Ratio (test code = A/G Ratio) 1.2 1.0-2.5 [place] 094531-10-07 12:55:00 Test Item Value Reference Range Interpretation Comments Creatinine Lvl (test code = Creatinine 0.49 0.50-1.05 Lvl) [place] 094531-10-07 12:55:00 Test Item Value Reference Range Interpretation Comments eGFR NON-AFR. ECUADOREAN (test code = 107 eGFR NON-AFR. ECUADOREAN) [place] 094531-10-07 12:55:00 Test Item Value Reference Range Interpretation Comments eGFR (test code = eGFR 124 ) [place] 094531-10-07 12:55:00 Test Item Value Reference Range Interpretation Comments B/C Ratio (test code = B/C Ratio) 35 6-22 [place] 094531-10-07 12:55:00 Test Item Value Reference Range Interpretation Comments Sodium Lvl (test code = Sodium Lvl) 140 135-146 [place] 094531-10-07 12:55:00 Test Item Value Reference Range Interpretation Comments Potassium Lvl (test code = Potassium 4.0 3.5-5.3 Lvl) [place] 094531-10-07 12:55:00 Test Item Value Reference Range Interpretation Comments Chloride Lvl (test code = Chloride Lvl) 105 98-110 [place] 094531-10-07 12:55:00 Test Item Value Reference Range Interpretation Comments CO2 (test code = CO2) 29 20-32 [place] 094531-10-07 12:55:00 Test Item Value Reference Range Interpretation Comments Calcium Lvl (test code = Calcium Lvl) 8.7 8.6-10.4 [place] 094531-10-07 12:55:00 Test Item Value Reference Range Interpretation Comments Total Protein (test code = Total 6.8 6.1-8.1 Protein) [place] 094531-10-07 12:55:00 Test Item Value Reference Range Interpretation Comments Bili Total (test code = Bili Total) 0.6 0.2-1.2 [place] 094531-10-07 12:55:00 Test Item Value Reference Range Interpretation Comments Albumin Lvl (test code = Albumin Lvl) 3.7 3.6-5.1 [place] 094531-10-07 12:55:00 Test Item Value Reference Range Interpretation Comments Globulin (test code = Globulin) 3.1 1.9-3.7 [place] 094531-10-07 12:55:00 Test Item Value Reference Range Interpretation Comments A/G Ratio (test code = A/G Ratio) 1.2 1.0-2.5 [place] 094531-10-07 12:55:00 Test Item Value Reference Range Interpretation Comments Bili Total (test code = Bili Total) 0.6 0.2-1.2 [place] 094531-10-07 12:55:00 Test Item Value Reference Range Interpretation Comments Alk Phos (test code = Alk Phos) 59 37-153 [place] 094531-10-07 12:55:00 Test Item Value Reference Range Interpretation Comments ASPARTATE TRANSAMINASE (test code = 18 10-35 ASPARTATE TRANSAMINASE) [place] 094531-10-07 12:55:00 Test Item Value Reference Range Interpretation Comments ALANINE AMINOTRANSFERASE (test code = 23 6-29 ALANINE AMINOTRANSFERASE) [place] 944341-10-07 12:55:00 Test Item Value Reference Range Interpretation Comments WBC X 10x3 (test code = WBC X 10x3) 4.8 3.8-10.8 [place] 944341-10-07 12:55:00 Test Item Value Reference Range Interpretation Comments RBC X 10x6 (test code = RBC X 10x6) 4.50 3.80-5.10 [place] 944341-10-07 12:55:00 Test Item Value Reference Range Interpretation Comments Hgb (test code = Hgb) 12.1 11.7-15.5 [facility]2021-10-07 12:55:00 Test Item Value Reference Range Interpretation Comments Alk Phos (test code = Alk Phos) 59 37-153 [facility] HospitalPqnwxrtINSUIUQGMN2477-01-50 12:55:00 Test Item Value Reference Range Interpretation Comments Hct (test code = Hct) 37.8 35.0-45.0 [facility] HospitalNdhzwdxYBDBNVZLGN0666-19-59 12:55:00 Test Item Value Reference Range Interpretation Comments MCV (test code = MCV) 84.0 80.0-100.0 [place] 944341-10-07 12:55:00 Test Item Value Reference Range Interpretation Comments MCH (test code = MCH) 26.9 pg 27.0-33.0 [place] 944341-10-07 12:55:00 Test Item Value Reference Range Interpretation Comments MCHC (test code = MCHC) 32.0 32.0-36.0 [facility] HospitalZooanxuRHUXEUJAZJ7521-47-13 12:55:00 Test Item Value Reference Range Interpretation Comments RDW (test code = RDW) 14.0 11.0-15.0 [place] 944341-10-07 12:55:00 Test Item Value Reference Range Interpretation Comments Platelet (test code = Platelet) 151 140-400 [facility] HospitalXlacfxdKOGDNCTWHB8428-18-98 12:55:00 Test Item Value Reference Range Interpretation Comments MPV (test code = MPV) 12.1 7.5-12.5 [facility] HospitalNjdzevrAQNEUEJHTJ1217-65-93 12:55:00 Test Item Value Reference Range Interpretation Comments Neutrophils # (test code = Neutrophils 1779 7819-0333 #) [facility] HospitalLabzlhzKCOKXTBEID0173-92-26 12:55:00 Test Item Value Reference Range Interpretation Comments Lymphocytes # (test code = Lymphocytes 1877 186-9087 #) [facility] HospitalQaehrdeUYCUEWJDTD7120-24-22 12:55:00 Test Item Value Reference Range Interpretation Comments Monocytes # (test code = Monocytes #) 350 200-950 [facility]2021-10-07 12:55:00 Test Item Value Reference Range Interpretation Comments ASPARTATE TRANSAMINASE (test code = 18 10-35 ASPARTATE TRANSAMINASE) [place] 944341-10-07 12:55:00 Test Item Value Reference Range Interpretation Comments Eosinophils # (test code = Eosinophils 72 15-500 #) [facility] HospitalEwkyfrkABZXPTNRHZ9480-45-46 12:55:00 Test Item Value Reference Range Interpretation Comments Basophils # (test code 29 See_Comment [Aut omated message] The = Basophils #) system which generated this result tra nsmitted reference range : <=200. The reference r brice was not used to int erpret this result as normal/abnormal . [facility] HospitalRmjyihxLHXESEVQEA3182-21-49 12:55:00 Test Item Value Reference Range Interpretation Comments Segs (test code = Segs) 65.4 [place] 944341-10-07 12:55:00 Test Item Value Reference Range Interpretation Comments Lymphocytes (test code = Lymphocytes) 25.2 [facility] HospitalGirkiksUJUAVJSVND8624-79-02 12:55:00 Test Item Value Reference Range Interpretation Comments Monocytes (test code = Monocytes) 7.3 [facility] HospitalJnemsxxVAUYGGOZQW3983-32-24 12:55:00 Test Item Value Reference Range Interpretation Comments Eosinophils (test code = Eosinophils) 1.5 [facility] HospitalLrwqhssHKIDCLYIWO3087-33-43 12:55:00 Test Item Value Reference Range Interpretation Comments Basophils (test code = Basophils) 0.6 [place] 944341-10-07 12:55:00 Test Item Value Reference Range Interpretation Comments Sed Rate (test code = Sed Rate) [facility]FblxrvcFCWKYNLLEB4316-02-19 12:55:00 Test Item Value Reference Range Interpretation Comments C-REACTIVE PROTEIN (test code = 2.9 C-REACTIVE PROTEIN) [facility]2021-10-07 12:55:00 Test Item Value Reference Range Interpretation Comments ALANINE AMINOTRANSFERASE (test code = 23 6-29 ALANINE AMINOTRANSFERASE) [facility]2021-10-07 12:55:00 Test Item Value Reference Range Interpretation Comments Vitamin B12 Lvl (test code = Vitamin [phone] B12 Lvl) [facility]2021-10-07 12:55:00 Test Item Value Reference Range Interpretation Comments Glucose Lvl (test code = Glucose Lvl) 151 65-99 [facility]2021-10-07 12:55:00 Test Item Value Reference Range Interpretation Comments BUN (test code = BUN) 17 7-[address]10-07 12:55:00 Test Item Value Reference Range Interpretation Comments WBC X 10x3 (test code = WBC X 10x3) 4.8 3.8-10.8 [place] 094531-10-07 12:55:00 Test Item Value Reference Range Interpretation Comments Creatinine Lvl (test code = Creatinine 0.49 0.50-1.05 Lvl) [place] 094531-10-07 12:55:00 Test Item Value Reference Range Interpretation Comments eGFR NON-AFR. ECUADOREAN (test code = 107 eGFR NON-AFR. ECUADOREAN) [place] 094531-10-07 12:55:00 Test Item Value Reference Range Interpretation Comments eGFR (test code = eGFR 124 ) [place] [place] 094531-10-07 12:55:00 Test Item Value Reference Range Interpretation Comments B/C Ratio (test code = B/C Ratio) 35 6-22 [place] 094531-10-07 12:55:00 Test Item Value Reference Range Interpretation Comments Sodium Lvl (test code = Sodium Lvl) 140 135-146 [place] 094531-10-07 12:55:00 Test Item Value Reference Range Interpretation Comments Potassium Lvl (test code = Potassium 4.0 3.5-5.3 Lvl) [place] 094531-10-07 12:55:00 Test Item Value Reference Range Interpretation Comments Chloride Lvl (test code = Chloride Lvl) 105 98-110 [place] 094531-10-07 12:55:00 Test Item Value Reference Range Interpretation Comments CO2 (test code = CO2) 29 20-32 [place] 094531-10-07 12:55:00 Test Item Value Reference Range Interpretation Comments Calcium Lvl (test code = Calcium Lvl) 8.7 8.6-10.4 [place] 094531-10-07 12:55:00 Test Item Value Reference Range Interpretation Comments Total Protein (test code = Total 6.8 6.1-8.1 Protein) [place] 944341-10-07 12:55:00 Test Item Value Reference Range Interpretation Comments RBC X 10x6 (test code = RBC X 10x6) 4.50 3.80-5.10 [place] 094531-10-07 12:55:00 Test Item Value Reference Range Interpretation Comments Albumin Lvl (test code = Albumin Lvl) 3.7 3.6-5.1 [place] 094531-10-07 12:55:00 Test Item Value Reference Range Interpretation Comments Globulin (test code = Globulin) 3.1 1.9-3.7 [place] 094531-10-07 12:55:00 Test Item Value Reference Range Interpretation Comments A/G Ratio (test code = A/G Ratio) 1.2 1.0-2.5 [place] 12699-10-07 12:55:00 Test Item Value Reference Range Interpretation Comments Bili Total (test code = Bili Total) 0.6 0.2-1.2 [place] 094531-10-07 12:55:00 Test Item Value Reference Range Interpretation Comments Alk Phos (test code = Alk Phos) 59 37-153 [place] 094531-10-07 12:55:00 Test Item Value Reference Range Interpretation Comments ASPARTATE TRANSAMINASE (test code = 18 10-35 ASPARTATE TRANSAMINASE) [place] 094531-10-07 12:55:00 Test Item Value Reference Range Interpretation Comments ALANINE AMINOTRANSFERASE (test code = 23 6-29 ALANINE AMINOTRANSFERASE) [place] 944341-10-07 12:55:00 Test Item Value Reference Range Interpretation Comments WBC X 10x3 (test code = WBC X 10x3) 4.8 3.8-10.8 [place] 944341-10-07 12:55:00 Test Item Value Reference Range Interpretation Comments RBC X 10x6 (test code = RBC X 10x6) 4.50 3.80-5.10 [place] [address]-10-07 12:55:00 Test Item Value Reference Range Interpretation Comments Hgb (test code = Hgb) 12.1 11.7-15.5 [place] [address]27-10-07 12:55:00 Test Item Value Reference Range Interpretation Comments Hgb (test code = Hgb) 12.1 11.7-15.5 [place] [address]-10-07 12:55:00 Test Item Value Reference Range Interpretation Comments Hct (test code = Hct) 37.8 35.0-45.0 [place] [address]-10-07 12:55:00 Test Item Value Reference Range Interpretation Comments MCV (test code = MCV) 84.0 80.0-100.0 [facility]NEGL8609[facility] 12:55:00 Test Item Value Reference Range Interpretation Comments MCH (test code = MCH) 26.9 pg 27.0-33.0 [facility]XvpjjpsZEHMLUIGSB8735-72-53 12:55:00 Test Item Value Reference Range Interpretation Comments MCHC (test code = MCHC) 32.0 32.0-36.0 [facility] HospitalUmcscfnYDTOEODAKR6872-23-99 12:55:00 Test Item Value Reference Range Interpretation Comments RDW (test code = RDW) 14.0 11.0-15.0 [place] 944341-10-07 12:55:00 Test Item Value Reference Range Interpretation Comments Platelet (test code = Platelet) 151 140-400 [facility] HospitalIbfoyhvRYVHLICPGW5027-00-39 12:55:00 Test Item Value Reference Range Interpretation Comments MPV (test code = MPV) 12.1 7.5-12.5 [facility] HospitalWsvgtgqJUDWZUQPUR9665-18-50 12:55:00 Test Item Value Reference Range Interpretation Comments Neutrophils # (test code = Neutrophils 3139 0338-7669 #) [facility] HospitalOkzztztIVHKZVLSCY9486-63-33 12:55:00 Test Item Value Reference Range Interpretation Comments Lymphocytes # (test code = Lymphocytes 4259 917-6861 #) [facility] HospitalCamgpkqORGXXCYMCO0673-16-20 12:55:00 Test Item Value Reference Range Interpretation Comments Monocytes # (test code = Monocytes #) 350 200-950 [facility] HospitalNjvrfpoNXMDXDQLKQ5636-74-01 12:55:00 Test Item Value Reference Range Interpretation Comments Hct (test code = Hct) 37.8 35.0-45.0 [place] 944341-10-07 12:55:00 Test Item Value Reference Range Interpretation Comments Eosinophils # (test code = Eosinophils 72 15-500 #) [facility] HospitalSsuqoayKRWTFYAERN7664-60-73 12:55:00 Test Item Value Reference Range Interpretation Comments Basophils # (test code 29 See_Comment [Aut omated message] The = Basophils #) system which generated this result tra nsmitted reference range : <=200. The reference r brice was not used to int erpret this result as normal/abnormal . [place] [address]-10-07 12:55:00 Test Item Value Reference Range Interpretation Comments Segs (test code = Segs) 65.4 [place] 944341-10-07 12:55:00 Test Item Value Reference Range Interpretation Comments Lymphocytes (test code = Lymphocytes) 25.2 [place] 944341-10-07 12:55:00 Test Item Value Reference Range Interpretation Comments Monocytes (test code = Monocytes) 7.3 [facility] HospitalLkiqkmfLRBRZGHMPG8691-83-22 12:55:00 Test Item Value Reference Range Interpretation Comments Eosinophils (test code = Eosinophils) 1.5 [place] [address]-10-07 12:55:00 Test Item Value Reference Range Interpretation Comments Basophils (test code = Basophils) 0.6 [place] 944341-10-07 12:55:00 Test Item Value Reference Range Interpretation Comments Sed Rate (test code = Sed Rate) 22 [facility]Flk[facility]keOTLGDBQWTU3947-59-54 12:55:00 Test Item Value Reference Range Interpretation Comments C-REACTIVE PROTEIN (test code = 2.9 C-REACTIVE PROTEIN) [facility] HospitalJhuliwuRSWLVUBSBB0262-92-55 12:55:00 Test Item Value Reference Range Interpretation Comments MCV (test code = MCV) 84.0 80.0-100.0 [facility]2021-10-07 12:55:00 Test Item Value Reference Range Interpretation Comments Vitamin B12 Lvl (test code = Vitamin 158 668-7368 B12 Lvl) [facility]2021-10-07 12:55:00 Test Item Value Reference Range Interpretation Comments Glucose Lvl (test code = Glucose Lvl) 151 65-99 [facility]2021-10-07 12:55:00 Test Item Value Reference Range Interpretation Comments BUN (test code = BUN) 17 7-25 [place] 944341-10-07 12:55:00 Test Item Value Reference Range Interpretation Comments MCH (test code = MCH) 26.9 pg 27.0-33.0 [facility]2021-10-07 12:55:00 Test Item Value Reference Range Interpretation Comments Creatinine Lvl (test code = Creatinine 0.49 0.50-1.05 Lvl) [facility]2021-10-07 12:55:00 Test Item Value Reference Range Interpretation Comments eGFR NON-AFR. ECUADOREAN (test code = 107 eGFR NON-AFR. ECUADOREAN) [facility]2021-10-07 12:55:00 Test Item Value Reference Range Interpretation Comments eGFR (test code = eGFR 124 ) [facility]2021-10-07 12:55:00 Test Item Value Reference Range Interpretation Comments B/C Ratio (test code = B/C Ratio) 35 6-22 [place] 094531-10-07 12:55:00 Test Item Value Reference Range Interpretation Comments Sodium Lvl (test code = Sodium Lvl) 140 135-146 [facility]2021-10-07 12:55:00 Test Item Value Reference Range Interpretation Comments Potassium Lvl (test code = Potassium 4.0 3.5-5.3 Lvl) [facility]2021-10-07 12:55:00 Test Item Value Reference Range Interpretation Comments Chloride Lvl (test code = Chloride Lvl) 105 98-110 [facility]2021-10-07 12:55:00 Test Item Value Reference Range Interpretation Comments CO2 (test code = CO2) 29 20-32 [facility]2021-10-07 12:55:00 Test Item Value Reference Range Interpretation Comments Calcium Lvl (test code = Calcium Lvl) 8.7 8.6-10.4 [facility]2021-10-07 12:55:00 Test Item Value Reference Range Interpretation Comments Total Protein (test code = Total 6.8 6.1-8.1 Protein) [facility]PCK2612-52-78 12:55:00 Test Item Value Reference Range Interpretation Comments MCHC (test code = MCHC) 32.0 32.0-36.0 [facility]2021-10-07 12:55:00 Test Item Value Reference Range Interpretation Comments Albumin Lvl (test code = Albumin Lvl) 3.7 3.6-5.1 [facility]2021-10-07 12:55:00 Test Item Value Reference Range Interpretation Comments Globulin (test code = Globulin) 3.1 1.9-3.7 [facility]2021-10-07 12:55:00 Test Item Value Reference Range Interpretation Comments A/G Ratio (test code = A/G Ratio) 1.2 1.0-2.5 [facility]2021-10-07 12:55:00 Test Item Value Reference Range Interpretation Comments Bili Total (test code = Bili Total) 0.6 0.2-1.2 [place] 094531-10-07 12:55:00 Test Item Value Reference Range Interpretation Comments Alk Phos (test code = Alk Phos) 59 37-153 [facility]2021-10-07 12:55:00 Test Item Value Reference Range Interpretation Comments ASPARTATE TRANSAMINASE (test code = 18 10-35 ASPARTATE TRANSAMINASE) [facility]2021-10-07 12:55:00 Test Item Value Reference Range Interpretation Comments ALANINE AMINOTRANSFERASE (test code = 23 6-29 ALANINE AMINOTRANSFERASE) [place] 944341-10-07 12:55:00 Test Item Value Reference Range Interpretation Comments WBC X 10x3 (test code = WBC X 10x3) 4.8 3.8-10.8 [place] 944341-10-07 12:55:00 Test Item Value Reference Range Interpretation Comments RBC X 10x6 (test code = RBC X 10x6) 4.50 3.80-5.10 [place] 944341-10-07 12:55:00 Test Item Value Reference Range Interpretation Comments Hgb (test code = Hgb) 12.1 11.7-15.5 [place] 944341-10-07 12:55:00 Test Item Value Reference Range Interpretation Comments RDW (test code = RDW) 14.0 11.0-15.0 [place] 944341-10-07 12:55:00 Test Item Value Reference Range Interpretation Comments Hct (test code = Hct) 37.8 35.0-45.0 [place] 944341-10-07 12:55:00 Test Item Value Reference Range Interpretation Comments MCV (test code = MCV) 84.0 80.0-100.0 [place] 944341-10-07 12:55:00 Test Item Value Reference Range Interpretation Comments MCH (test code = MCH) 26.9 pg 27.0-33.0 [place] 944341-10-07 12:55:00 Test Item Value Reference Range Interpretation Comments MCHC (test code = MCHC) 32.0 32.0-36.0 [place] 944341-10-07 12:55:00 Test Item Value Reference Range Interpretation Comments RDW (test code = RDW) 14.0 11.0-15.0 [place] 944341-10-07 12:55:00 Test Item Value Reference Range Interpretation Comments Platelet (test code = Platelet) 151 140-400 [place] [address]-10-07 12:55:00 Test Item Value Reference Range Interpretation Comments MPV (test code = MPV) 12.1 7.5-12.5 [place] 944341-10-07 12:55:00 Test Item Value Reference Range Interpretation Comments Neutrophils # (test code = Neutrophils 3139 5152-9385 #) [facility] HospitalBdmutqkGUVHWDIAKD5789-61-56 12:55:00 Test Item Value Reference Range Interpretation Comments Lymphocytes # (test code = Lymphocytes 7305 738-3097 #) [facility] HospitalKppgseyIPSCLRUSVP5829-16-23 12:55:00 Test Item Value Reference Range Interpretation Comments Monocytes # (test code = Monocytes #) 350 200-950 [facility] HospitalRjaixuqRBJXWTMOGQ6374-19-88 12:55:00 Test Item Value Reference Range Interpretation Comments Platelet (test code = Platelet) 151 140-400 [facility] HospitalUqhribaQXKSQXKDAT4442-58-19 12:55:00 Test Item Value Reference Range Interpretation Comments Eosinophils # (test code = Eosinophils 72 15-500 #) [facility] HospitalCzmgzpjHIFWKSLCGG4890-58-18 12:55:00 Test Item Value Reference Range Interpretation Comments Basophils # (test code 29 See_Comment [Aut omated message] The = Basophils #) system which generated this result tra nsmitted reference range : <=200. The reference r brice was not used to int erpret this result as normal/abnormal . [facility] HospitalZgaexozTMIDVJQCSW2572-31-51 12:55:00 Test Item Value Reference Range Interpretation Comments Segs (test code = Segs) 65.4 [place] 944341-10-07 12:55:00 Test Item Value Reference Range Interpretation Comments Lymphocytes (test code = Lymphocytes) 25.2 [place] 944341-10-07 12:55:00 Test Item Value Reference Range Interpretation Comments Monocytes (test code = Monocytes) 7.3 [place] 944341-10-07 12:55:00 Test Item Value Reference Range Interpretation Comments Eosinophils (test code = Eosinophils) 1.5 [facility] HospitalTlztzgyUBLQMCGWYC5008-31-37 12:55:00 Test Item Value Reference Range Interpretation Comments Basophils (test code = Basophils) 0.6 [facility] HospitalIitmdcbNVDUCKGBHD9932-52-16 12:55:00 Test Item Value Reference Range Interpretation Comments Sed Rate (test code = Sed Rate) 22 [facility]pkmnlxYNFOLXINHQ2330-91-77 12:55:00 Test Item Value Reference Range Interpretation Comments C-REACTIVE PROTEIN (test code = 2.9 C-REACTIVE PROTEIN) [facility] HospitalBwrfbsjPRZAUZPQBE8504-93-67 12:55:00 Test Item Value Reference Range Interpretation Comments MPV (test code = MPV) 12.1 7.5-12.5 [facility]2021-10-07 12:55:00 Test Item Value Reference Range Interpretation Comments Vitamin B12 Lvl (test code = Vitamin 835 648-2016 B12 Lvl) [facility]2021-10-07 12:55:00 Test Item Value Reference Range Interpretation Comments Glucose Lvl (test code = Glucose Lvl) 151 65-99 [facility]2021-10-07 12:55:00 Test Item Value Reference Range Interpretation Comments BUN (test code = BUN) 17 7-25 [facility] HospitalHqeqnvyEJNOLCAKNY1751-34-69 12:55:00 Test Item Value Reference Range Interpretation Comments Neutrophils # (test code = Neutrophils 3139 3400-9014 #) [facility]2021-10-07 12:55:00 Test Item Value Reference Range Interpretation Comments Creatinine Lvl (test code = Creatinine 0.49 0.50-1.05 Lvl) [facility]2021-10-07 12:55:00 Test Item Value Reference Range Interpretation Comments eGFR NON-AFR. ECUADOREAN (test code = 107 eGFR NON-AFR. ECUADOREAN) [facility]2021-10-07 12:55:00 Test Item Value Reference Range Interpretation Comments eGFR (test code = eGFR 124 ) [facility]2021-10-07 12:55:00 Test Item Value Reference Range Interpretation Comments B/C Ratio (test code = B/C Ratio) 35 6-22 [facility]2021-10-07 12:55:00 Test Item Value Reference Range Interpretation Comments Sodium Lvl (test code = Sodium Lvl) 140 135-146 [place] 094531-10-07 12:55:00 Test Item Value Reference Range Interpretation Comments Potassium Lvl (test code = Potassium 4.0 3.5-5.3 Lvl) [place] 094531-10-07 12:55:00 Test Item Value Reference Range Interpretation Comments Chloride Lvl (test code = Chloride Lvl) 105 98-110 [place] 094531-10-07 12:55:00 Test Item Value Reference Range Interpretation Comments CO2 (test code = CO2) 29 20-32 [place] 094531-10-07 12:55:00 Test Item Value Reference Range Interpretation Comments Calcium Lvl (test code = Calcium Lvl) 8.7 8.6-10.4 [place] 094531-10-07 12:55:00 Test Item Value Reference Range Interpretation Comments Total Protein (test code = Total 6.8 6.1-8.1 Protein) [facility] HospitalFxnibjtESYQCWGBOO4472-34-99 12:55:00 Test Item Value Reference Range Interpretation Comments Lymphocytes # (test code = Lymphocytes 0247 029-7537 #) [facility]2021-10-07 12:55:00 Test Item Value Reference Range Interpretation Comments Albumin Lvl (test code = Albumin Lvl) 3.7 3.6-5.1 [place] 094531-10-07 12:55:00 Test Item Value Reference Range Interpretation Comments Globulin (test code = Globulin) 3.1 1.9-3.7 [place] 094531-10-07 12:55:00 Test Item Value Reference Range Interpretation Comments A/G Ratio (test code = A/G Ratio) 1.2 1.0-2.5 [place] 094531-10-07 12:55:00 Test Item Value Reference Range Interpretation Comments Bili Total (test code = Bili Total) 0.6 0.2-1.2 [place] 094531-10-07 12:55:00 Test Item Value Reference Range Interpretation Comments Alk Phos (test code = Alk Phos) 59 37-153 [place] 094531-10-07 12:55:00 Test Item Value Reference Range Interpretation Comments ASPARTATE TRANSAMINASE (test code = 18 10-35 ASPARTATE TRANSAMINASE) [facility]2021-10-07 12:55:00 Test Item Value Reference Range Interpretation Comments ALANINE AMINOTRANSFERASE (test code = 23 6-29 ALANINE AMINOTRANSFERASE) [place] 944341-10-07 12:55:00 Test Item Value Reference Range Interpretation Comments WBC X 10x3 (test code = WBC X 10x3) 4.8 3.8-10.8 [place] 944341-10-07 12:55:00 Test Item Value Reference Range Interpretation Comments RBC X 10x6 (test code = RBC X 10x6) 4.50 3.80-5.10 [place] [address]-10-07 12:55:00 Test Item Value Reference Range Interpretation Comments Hgb (test code = Hgb) 12.1 11.7-15.5 [place] 944341-10-07 12:55:00 Test Item Value Reference Range Interpretation Comments Monocytes # (test code = Monocytes #) 350 200-950 [place] 944341-10-07 12:55:00 Test Item Value Reference Range Interpretation Comments Hct (test code = Hct) 37.8 35.0-45.0 [place] 944341-10-07 12:55:00 Test Item Value Reference Range Interpretation Comments MCV (test code = MCV) 84.0 80.0-100.0 [place] [address]-10-07 12:55:00 Test Item Value Reference Range Interpretation Comments MCH (test code = MCH) 26.9 pg 27.0-33.0 [place] [address]-10-07 12:55:00 Test Item Value Reference Range Interpretation Comments MCHC (test code = MCHC) 32.0 32.0-36.0 [place] 944341-10-07 12:55:00 Test Item Value Reference Range Interpretation Comments RDW (test code = RDW) 14.0 11.0-15.0 [place] [address]-10-07 12:55:00 Test Item Value Reference Range Interpretation Comments Platelet (test code = Platelet) 151 140-400 [place] 944341-10-07 12:55:00 Test Item Value Reference Range Interpretation Comments MPV (test code = MPV) 12.1 7.5-12.5 [place] 944341-10-07 12:55:00 Test Item Value Reference Range Interpretation Comments Neutrophils # (test code = Neutrophils 3139 3740-2727 #) [facility] HospitalKglwgbzXRPBBIBKNP0650-92-42 12:55:00 Test Item Value Reference Range Interpretation Comments Lymphocytes # (test code = Lymphocytes 8107 849-2595 #) [facility] HospitalGhyibryQNJAMLAXVL6697-89-49 12:55:00 Test Item Value Reference Range Interpretation Comments Monocytes # (test code = Monocytes #) 350 200-950 [facility] HospitalQtrxtlqIVHGHDLGOU4086-03-98 12:55:00 Test Item Value Reference Range Interpretation Comments Eosinophils # (test code = Eosinophils 72 15-500 #) [facility] HospitalMjkryigHOCPLAPLBK8112-56-59 12:55:00 Test Item Value Reference Range Interpretation Comments Eosinophils # (test code = Eosinophils 72 15-500 #) [facility] HospitalWxkgsshSQQBYTUQCJ6214-57-40 12:55:00 Test Item Value Reference Range Interpretation Comments Basophils # (test code 29 See_Comment [Aut omated message] The = Basophils #) system which generated this result tra nsmitted reference range : <=200. The reference r brice was not used to int erpret this result as normal/abnormal . [facility] HospitalVdaksriAHPVCGJOOR6760-72-25 12:55:00 Test Item Value Reference Range Interpretation Comments Segs (test code = Segs) 65.4 [facility] HospitalVrupgkyPESIZNPOQV3717-12-20 12:55:00 Test Item Value Reference Range Interpretation Comments Lymphocytes (test code = Lymphocytes) 25.2 [place] 944341-10-07 12:55:00 Test Item Value Reference Range Interpretation Comments Monocytes (test code = Monocytes) 7.3 [facility] HospitalJegqfzzJKTMUXKEBR8500-88-00 12:55:00 Test Item Value Reference Range Interpretation Comments Eosinophils (test code = Eosinophils) 1.5 [facility] HospitalWwyhzlaPQLIHQVERC4117-71-24 12:55:00 Test Item Value Reference Range Interpretation Comments Basophils (test code = Basophils) 0.6 [facility] HospitalNpdhvxmJAHKBJXNTZ4628-81-30 12:55:00 Test Item Value Reference Range Interpretation Comments Sed Rate (test code = Sed Rate) 22 [facility] Agdfjwz3635[facility]28-53 22:09:00 Test Item Value Reference Range Interpretation Comments Cholesterol (test 107 mg/dL 0-200 N code = CHOL) Triglycerides (test 76 mg/dL 9-200 N code = TRIG) HDL (test code = 36 mg/dL 50-60 L HDL) Chol/HDL (test code 3.0 Ratio 0.0-4.4 N = CHOLPHDL) LDL, Calculated 56 0-130 N (NOTE)RISK O F HEART (test code = LDLC) DISEASEPu blished by Polish Heart AssociationAnal yte Optimal Boderli ne Increased RiskC HOL <200 200-239 >240TRI G <150 150-199 >200HDL Male: >60 <40HDL Fem jasbir: >60 <50LDL < 100 130-159 >160LDL NEAR OPTIMAL IS 100- 129 VLDL (test code = 15 mg/dL 5-40 N VLDL) LDL/HDL (test code = 2 LDLPHDL) Comprehensive Metabolic Awocn9975-06-81 22:09:00 Test Item Value Reference Range Interpretation [...] ars ofage have not been validated by e MDRD study and shoul d be interpretedwith caution.eGFR Re sult Interpretation: eGFR > or = 60 is in t he Normal RangeeGF R < 60 may mean kidney diseaseeGFR < 1 5 may mean kidney failureRange s recommended by the National Kid[employer] Foundation,http ://nkd ep.nih.gov Jrg-[id number] 22:05:00 Test Item Value Reference Range Interpretation Comments NT ProBnp (test code = PBNP) 1920 pg/mL 0-124 H CBC with Wxzyvxmlxsbo5371-44-30 18:24:00 Test Item Value Reference Range Interpretation [...] code = ALYMPH) 1.4 K/cumm 0.5-4.6 N [place] Abs (test code = AMONO) 0.3 K/cumm 0.0-1.2 N Eos Abs (test code = AEOS) 0.09 K/cumm 0.00-0.74 N Baso Abs (test code = ABASO) 0.0 K/cumm 0.00-0.21 N HEMOGLOBIN A1C Test Item Value Reference Range Interpretation Comments A1C (test code = 4548-4) 6.8% SARS-COV 2 AntigenSARS-COV 2 Antigen"
[2022-11-28] MEDS ORDERED: HYDROCODONE/APAP 7.5/325 MG TAB ONE (16:28)
--- NOTE | 2022-11-28 16:52 | RAD REPORT ---
EXAM DESCRIPTION: CT - Head Brain Wo Cont - 11/28/2022 4:44 pm CLINICAL HISTORY: headache, h/o aneursyms Headache, drowsiness COMPARISON: Head Brain W/Wo Con dated 09/19/2022; Head Brain Wo Cont dated 03/02/2021 TECHNIQUE: All CT scans are performed using dose optimization technique as appropriate and may inclu de automated exposure control or mA/KV adjustment according to patient size. FINDINGS: No intracranial hemorrhage, hydrocephalus or extra-axial fluid collection.13 mm calcified meningioma again seen anteriorly and superiorly, unchanged.No areas of brain edema or evidence of mid line shift. The paranasal sinuses and mastoids are clear. The calvarium is intact. IMPRESSION: No acute intracranial abnormality.
--- NOTE | 2022-11-28 17:45 | RAD REPORT ---
EXAM DESCRIPTION: CT - Head angio - 11/28/2022 5:31 pm CLINICAL HISTORY: headache, h/o aneursym COMPARISON: Head Brain Wo Cont dated 11/28/2022; Head Brain W/Wo Con dated 09/19/2022 TECHNIQUE: CT angiography of the head was performed with MIPs. All CT scans are performed using dose optimization technique as appropriate and may include automated exposure control or mA/KV adjustment according to patient size. FINDINGS: No evidence of large vessel occlusion. No evidence of aneurysm is detected. No flow-limiti ng stenosis or vascular malformation identified. Antegrade flow is seen in the vertebral arteries. The vertebral arteries are codominant. The visualized dural venous sinuses are patent. IMPRESSION: No significant flow abnormality is detected.
--- NOTE | 2022-11-28 17:50 | RAD REPORT ---
EXAM DESCRIPTION: CT - Neck Angio - 11/28/2022 5:31 pm CLINICAL HISTORY: headache, h/o aneursym COMPARISON: Neck Angio dated 03/02/2021; Head C Spine Mpr Wo Con dated 11/19/2020 TECHNIQUE: CT angiography of the neck vessels was performed with MIPs. All CT scans are performed using dose optimization technique as appropriate and may include automated exposure control or mA/KV adjustment according to patient size. FINDINGS: A left aortic arch is identified with normal three vessel configuration of the great vesse ls. No significant flow abnormality is seen of the common carotid bilaterally. Mild mixed plaque is present in both carotid bulbs. This does not result in a hemodynamically signifi cant carotid stenosis. Normal flow is seen within both vertebral arteries. Moderate chronic sinusitis changes both maxillary antra. IMPRESSION: Mild mixed plaque in both carotid bulbs without hemodynamically significant stenosis see n. NASCET criteria used. Mild 0-49% stenosis Moderate 50-69% stenosis Severe 70-99% stenosis
[2022-11-28] MEDS ORDERED: dexAMETHasone 10 MG/ML VIAL ONE (18:24)
[2022-11-28] MEDS ORDERED: KETOROLAC 30 MG/ML INJ ONE (18:24)
[2022-11-28] MEDS ORDERED: METOCLOPRAMIDE 10 MG/2mL INJ ONE (18:24)
[2022-11-28] MEDS ORDERED: MAGNESIUM SULFATE 1 gm IVPB 1 GM/100 ML BAG IV ONE (18:25)
[2022-11-28] MEDS ORDERED: NA CHLORIDE 0.9% 1,000 ML ONE (18:25)
[2022-11-28 18:46] LABS: Hematocrit 40.2 % (36.0-45.0); MCV 88.3 fL (80-100); MPV 10.2 fL (7.6-11.3); RBC Red Blood Cell Count 4.55 M/uL (3.86-4.86)
[2022-11-28 18:48] LABS: BUN Blood Urea Nitrogen 18 mg/dL (7-18); Bicarbonate 29 mEq/L (21-32); Glomerular Filtration Rate 104 ml/min (=/>90); Glucose Level 92 mg/dL (74-106); Magnesium 2.5 mg/dL (1.6-2.4); Potassium 3.5 mEq/L (3.5-5.1); Sodium Level 142 mEq/L (136-145)
[2022-11-28 18:49] LABS: C-Reactive Protein < 2.90 mg/L (<3.00)
[2022-11-28 19:23] LABS: Arterial Blood Carboxyhemoglob 0.9 % (0-1.5); Blood Gas Oxyhemoglobin 92.3 % (94-97); Blood O2 Saturation 94.5 % (92-98.5)
--- NOTE | 2022-11-28 19:26 | EDPHYS ---
Physician Documentation [facility] [place] Name: Sukh York Age: 62 yrs Sex: Female : 1960 Arrival Date: 11/28/2022 Time: 16:01 Bed 18 Private MD: ED Physician Perez Goddard HPI: 11/28 16:17 This 62 yrs old Female presents to ER via Ambulatory with complaints of sb4 Headache, Worst Ever. 16:17 62 year old female with past medical history of CHF, COPD, diabetes, hypertension sb4 presents with complaints headache. States she has had the headache for 6 days, locates it on the left forehead and radiates towards her occiput. States that she was diagnosed with brain aneursyms back in June, has not had them rechecked, or had any intervention. She denies any photophobia, blurred vision, dizziness, numbness, asymmetric weakness. Historical: - Allergies: 16:12 PENICILLINS; ll1 - PMHx: 16:12 CHF; COPD; Diabetes - NIDDM; Hypertension; Aneurysm; ll1 - PSHx: 16:12 defibrillator; ll1 - Immunization history:: Adult Immunizations up to date. - Social history:: Smoking status: Patient denies any tobacco usage or history of. ROS: 16:17 Constitutional: Negative for fever, chills, and weight loss, Eyes: Negative for injury, sb4 pain, redness, and discharge, Cardiovascular: Negative for chest pain, palpitations, and edema, Respiratory: Negative for shortness of breath, cough, wheezing, and pleuritic chest pain, Abdomen/GI: Negative for abdominal pain, nausea, vomiting, diarrhea, and constipation, MS/Extremity: Negative for injury and deformity, Skin: Negative for injury, rash, and discoloration. 16:17 Neuro: Positive for headache, Negative for altered mental status, dizziness, gait disturbance, hearing loss, loss of consciousness, numbness, seizure activity, syncope, tingling, visual changes, weakness. 16:17 All other systems are negative. Exam: 16:17 Constitutional: This is a well developed, well nourished patient who is awake, alert, sb4 and in no acute distress. Head/Face: Normocephalic, atraumatic. Eyes: Extra-ocular motions intact. Periorbital areas with no swelling, redness, or edema. ENT: Mucous membranes moist. Cardiovascular: Regular rate and rhythm with a normal S1 and S2. Respiratory: Lungs have equal breath sounds bilaterally, clear to auscultation and percussion. No rales, rhonchi or wheezes noted. No increased work of breathing, no retractions or nasal flaring. Abdomen/GI: Soft, non-tender, no distension. Skin: Warm, dry with normal turgor. Normal color with no rashes, no lesions, and no evidence of cellulitis. MS/ Extremity: Pulses equal, no cyanosis. Neurovascular intact. Full, normal range of motion. Neuro: Awake and alert, GCS 15, oriented to person, place, time, and situation. Cranial nerves II-XII grossly intact. Motor strength 5/5 in all extremities. Sensory grossly intact. Cerebellar exam normal. Normal gait. 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 sb4 Vital Signs: 16:12 Weight 111.58 kg; Height 5 ft. 1 in. ; Pain 8/10; ll1 17:43 Pulse 61; Pulse Ox 100% ; ap3 18:32 BP 112 / 69; Pulse 67; Resp 18; Pulse Ox 94% ; ap3 16:12 Body Mass Index 46.48 (111.58 kg, 154.94 cm) ll1 16:12 Pain Scale: Adult ll1 MDM: 16:06 Patient medically screened. sb4 16:17 Differential diagnosis: cluster headache, cerebral vascular accident, intracerebral sb4 hemorrhage, migraine, subarachnoid bleed, subdural hematoma, temporal arteritis, tension headache. 19:25 Data reviewed: vital signs, nurses notes, lab test result(s), radiologic studies, I sb4 have discussed the patient's presentation/case with the attending Emergency Department Physician; and as a result, I will discharge patient. Consideration of Admission/Observation Escalation of care including admission/observation considered. Care significantly affected by the following chronic conditions: Diabetes, Hypertension, Congestive Heart Failure. Counseling: I had a detailed discussion with the patient and/or guardian regarding: the historical points, exam findings, and any diagnostic results supporting the discharge/admit diagnosis, lab results, to return to the emergency department if symptoms worsen or persist or if there are any questions or concerns that arise at home. 11/28 17:55 Order name: CREATININE WHOLE BLOOD; Complete Time: 17:58 EDMS 11/28 18:13 Order name: CBC w/o diff; Complete Time: 18:58 sb4 11/28 18:13 Order name: BMP; Complete Time: 18:58 sb4 11/28 18:13 Order name: Magnesium; Complete Time: 18:58 sb4 11/28 18:13 Order name: CRP; Complete Time: 18:58 sb4 11/28 19:10 Order name: ABG; Complete Time: 20:00 sb4 11/28 16:16 Order name: Head Brain Wo Cont CT; Complete Time: 16:54 sb4 11/28 16:55 Order name: Head Angio CT; Complete Time: 17:50 sb4 11/28 16:55 Order name: Neck Angio CT; Complete Time: 17:51 sb4 Administered Medications: 16:21 Drug: Hydrocodone-Acetaminophen PO (7.5 mg-325 mg) 1 tabs Route: PO; ap3 18:29 Drug: NS 0.9% IV 1000 ml Route: IV; Rate: 125 ml/hr; Site: right antecubital; ap3 18:29 Drug: Magnesium Sulfate IVPB 1 grams Route: IVPB; Infused Over: 1 hrs; Site: right ap3 antecubital; 18:29 Drug: Ketorolac IVP 15 mg Route: IVP; Site: right antecubital; ap3 18:29 Drug: metoCLOPramide IVP 10 mg Route: IVP; Site: right antecubital; ap3 18:29 Drug: Decadron - Dexamethasone IVP 10 mg Route: IVP; Site: right antecubital; ap3 Disposition: 20:30 Co-signature as Attending Physician, Perez Goddard MD I reviewed the patient's care rt provided by the Advanced Practice Provider and agree with the diagnosis and treatment plan. Disposition Summary: 11/28/22 19:25 Discharge Ordered Location: Home sb4 Problem: an ongoing problem sb4 Symptoms: have improved sb4 Condition: Stable sb4 Diagnosis - Headache sb4 Followup: sb4 - With: - When: 2 - 3 days - Reason: Further diagnostic work-up, Recheck today's complaints, Continuance of care, Re-evaluation by your physician Discharge Instructions: - Discharge Summary Sheet sb4 - General Headache Without Cause sb4 - Meningioma sb4 - Preventing Carbon Monoxide Poisoning sb4 Forms: - Medication Reconciliation Form sb4 - Thank You Letter sb4 - Antibiotic Education sb4 - Prescription Opioid Use sb4 - Patient Portal Instructions sb4 Signatures: Dispatcher [employer] Betty Gross RN RN mar3 Alvarado Rockwell RN RN ll1 Sydnee Bose, PAZaria PAZaria sb4 Perez Goddard MD MD rt
--- NOTE | 2022-11-28 19:26 | ER ---
Nurse's Notes [facility] [place] Name: Sukh York Age: 62 yrs Sex: Female : 1960 Arrival Date: 11/28/2022 Time: 16:01 Bed 18 Private MD: Diagnosis: Headache Presentation: 11/28 16:12 Chief complaint: Patient states: GONZALEZ getting worse since 11/20. Coronavirus screen: Client ll1 denies travel out of the [place] in the last 14 days. At this time, the client does not indicate any symptoms associated with coronavirus-19. Ebola Screen: Patient denies travel to an Ebola-affected area in the 21 days before illness onset. Initial Sepsis Screen: Does the patient meet any 2 criteria? No. Patient's initial sepsis screen is negative. Does the patient have a suspected source of infection? No. Patient's initial sepsis screen is negative. Risk Assessment: Do you want to hurt yourself or someone else? Patient reports no desire to harm self or others. Onset of symptoms was November 20, 2022. 16:12 Method Of Arrival: Ambulatory ll1 16:12 Acuity: RADHA 2 ll1 Triage Assessment: 16:13 Headache History: The patient has had previous headaches and this one is more severe ll1 than previous episodes. General: Appears uncomfortable, Behavior is calm, cooperative, appropriate for age. Pain: Complains of pain in head Pain currently is 8 out of 10 on a pain scale. Pain began 11/20/22. Neuro: Reports headache. 16:21 Pain: Also complains of no other associated symptoms. ap3 Historical: - Allergies: 16:12 PENICILLINS; ll1 - PMHx: 16:12 CHF; COPD; Diabetes - NIDDM; Hypertension; Aneurysm; ll1 - PSHx: 16:12 defibrillator; ll1 - Immunization history:: Adult Immunizations up to date. - Social history:: Smoking status: Patient denies any tobacco usage or history of. Screenin:21 [facility] ED Fall Risk Assessment (Adult) History of falling in the last 3 months, ap3 including since admission No falls in past 3 months (0 pts). Abuse screen: Denies threats or abuse. Nutritional screening: No deficits noted. Tuberculosis screening: No symptoms or risk factors identified. Assessment: 16:21 General: Appears in no apparent distress. Behavior is calm, cooperative. Pain: ap3 Complains of pain in head. Neuro: Level of Consciousness is awake, alert, obeys commands, Oriented to person, place, time, situation, Reports headache. Cardiovascular: Patient's skin is warm and dry. Respiratory: Airway is patent Respiratory effort is even, unlabored, Respiratory pattern is regular, symmetrical. 19:00 Reassessment: Patient appears in no apparent distress at this time. Patient and/or jb4 family updated on plan of care and expected duration. Pain level reassessed. Patient is alert, oriented x 3, equal unlabored respirations, skin warm/dry/pink. 19:45 Reassessment: Patient appears in no apparent distress at this time. Patient and/or jb4 family updated on plan of care and expected duration. Pain level reassessed. Patient is alert, oriented x 3, equal unlabored respirations, skin warm/dry/pink. Vital Signs: 16:12 Weight 111.58 kg; Height 5 ft. 1 in. ; Pain 8/10; ll1 17:43 Pulse 61; Pulse Ox 100% ; ap3 18:32 BP 112 / 69; Pulse 67; Resp 18; Pulse Ox 94% ; ap3 16:12 Body Mass Index 46.48 (111.58 kg, 154.94 cm) ll1 16:12 Pain Scale: Adult ll1 ED Course: 16:05 Patient arrived in ED. im 16:06 Syd[facility] sb4 16:06 Perez Goddard MD is Attending Physician. sb4 16:12 Arm band placed on Patient placed in an exam room, on a stretcher. ll1 16:13 Triage completed. ll1 16:16 Betty Cameron, RN is Primary Nurse. ap3 16:21 Patient has correct armband on for positive identification. Bed in low position. Call ap3 light in reach. Side rails up X 1. Pulse ox on. NIBP on. 16:21 No provider procedures requiring assistance completed. ap3 16:45 Head Brain Wo Cont CT In Process Unspecified. EDMS 17:23 Provided Education on: testing and medications prior to administration. ap3 17:[address] In Process Unspecified. EDMS 17:[address] In Process Unspecified. EDMS 19:25 Aguilar Wilcox MD is Referral Physician. sb4 19:45 IV discontinued, intact, bleeding controlled, No redness/swelling at site. Pressure jb4 dressing applied. Administered Medications: 16:21 Drug: Hydrocodone-Acetaminophen PO (7.5 mg-325 mg) 1 tabs Route: PO; ap3 18:29 Drug: NS 0.9% IV 1000 ml Route: IV; Rate: 125 ml/hr; Site: right antecubital; ap3 18:29 Drug: Magnesium Sulfate IVPB 1 grams Route: IVPB; Infused Over: 1 hrs; Site: right ap3 antecubital; 18:29 Drug: Ketorolac IVP 15 mg Route: IVP; Site: right antecubital; ap3 18:29 Drug: metoCLOPramide IVP 10 mg Route: IVP; Site: right antecubital; ap3 18:29 Drug: Decadron - Dexamethasone IVP 10 mg Route: IVP; Site: right antecubital; ap3 Medication: 16:22 VIS not applicable for this client. ap3 Outcome: 19:25 Discharge ordered by . sb4 19:45 Discharged to home ambulatory. jb4 19:45 Condition: stable 19:45 Discharge instructions given to patient, Instructed on discharge instructions, follow up and referral plans. Demonstrated understanding of instructions, follow-up care. 20:05 Patient left the ED. jb4 Signatures: Dispatcher [employer] EDFacundo Witt RN RN jb4 Betty Cameron RN RN ap3 Alvarado Rockwell RN RN ll1 Sydnee Bose PAZaria PAZaria sb4 Liliane Palacio
[2022-11-28 22:07] VITALS: BP 112/69; O2SAT 94
== END 2022-11-28 20:05 | disposition home or self-care (01) ==
LOC: ER 16:01
DX: R51.9 Headache, unspecified (principal); I10 Essential (primary) hypertension; I50.9 Heart failure, unspecified; J44.9 Chronic obstructive pulmonary disease, unspecified; E11.9 Type 2 diabetes mellitus without complications; Z88.0 Allergy status to penicillin; Z95.810 Presence of automatic (implantable) cardiac defibrillator
CPT/HCPCS: 80048; 36415; 83735; 82565; 85027; 86140; 70450; 70496; 70498; 82805; 96375; 96374; 99284; Q9967; J3475; J2765; J1100; J7030

== ENCOUNTER 2022-12-23 14:20 | Emergency (ER) | payer OTHER ==
--- OUTSIDE RECORDS SUMMARY | 2022-12-23 14:43 | XMS REPORT | Continuity of Care Document ---
:1960 Author Organization [facility] t Address [address] [place] [address] Care Team Providers Name Role Phone IVONNE JACQUI Primary Care Physician Unavailable Aissatou Tapia Attending Clinician Unavailable Aleah Nicholson Attending Clinician Unavailable VAUGHN MORRISON Attending Clinician Unavailable MIREYA ANGEL Attending Clinician Unavailable GIOVANY KNOTT Attending Clinician Unavailable SOPHIE PITTMAN Attending Clinician Unavailable Araceli CAM, Wood Syed Attending Clinician [phone] Mireya Ivory Attending Clinician FE RHODES Attending Clinician Unavailable Doctor Unassigned, [place] Attending Clinician Unavailable Alyssa Dodd MD Attending Clinician [phone] ALYSSA DODD Attending Clinician Unavailable Sigifredo Ramirez MD Attending Clinician SIGIFREDO RAMIREZ Attending Clinician Unavailable SIGIFREDO RAMIREZ Attending Clinician Unavailable VIVEK IVEY Attending Clinician Unavailable Rosangela BERNSTEIN, Marychuy Fishman Attending Clinician Unavailable Lab, Ang - Db Attending Clinician Unavailable Andrews Perla MD Attending Clinician ANDREWS PERLA Attending Clinician Unavailable ANDREWS PERLA Attending Clinician Unavailable JACQUI CORONADO Attending Clinician Unavailable LATASHA LEAL Attending Clinician Unavailable Latasha Leal MD Attending Clinician , [facility] Sleep Lab Bed Attending Clinician Unavailable Feliberto, General Cardiology Attending Clinician Unavailable WOOD ROACH Attending Clinician Unavailable Testing, [facility] Pulmonary Function Attending Clinician UnavailMiguel Spencer MD [...] Attending Clinician Unavailable Regulo Villa Attending Clinician Joel Turner MD K.HRenuka Attending Clinician JOEL TURNER K.HRenuka Attending Clinician Unavailable Fina Attending Clinician Unavailable JACQUI CORONADO Attending Clinician Unavailable WOOD ROACH Admitting Clinician Unavailable JOEL TURNER KRenukaHRenuka Admitting Clinician Unavailable Fina Admitting Clinician Unavailable JACQUI CORONADO Admitting Clinician Unavailable Payers Payer Name Policy Type Policy Number Effective Date Expiration Date S jerome [facility] DUAL [id number] 2021 COMP HMO D SNP 00:00:00 [place]ID [place] [id number] 2017 00:00:00 [place] [id number] 2021 Common DUAL MCR WELLMED 00:00:00 Spirit - [facility] MEDICARE NOVITAS MB [id number] [facility] MEDICARE NOVITAS MB [id number] [facility] MEDICARE NOVITAS MB [id number] [facility] MEDICARE NOVITAS MB [id number] [facility] MEDICARE NOVITAS MB [id number] [facility] [employer] - [id number] 2020 [facility] 00:00:00 (MEDICARE REPLACEMENT/ADVAN TAGE - H[place]) [place] [id number] [place] [facility] [id number] - DUAL COMPLETE - DUAL ELIGIBLE - SNP (MEDICARE-MEDICAI D REPLACEMENT HMO) Problems Condition Condition Condition Status Onset Resolution Last Treating Co mments Source Name Details Category Date Date Treatment Clinician Date Angina Angina Disease Active Univers pectoris pectoris 4-19 ity of 00:00: [place] 00 Medical Branch Diabetes Diabetes Disease Active Unive rs mellitus mellitus 4-19 ity of 00:00: [place] 00 Medical Branch Sick sinus Sick sinus Disease Active U nivers syndrome syndrome 4-19 ity of 00:00: [place] 00 Medical Branch Ventricula Ventricula Disease Active [...] Spirit on unspecifie - CHI d type [facility] [id number] Unsteady Problem Commo n gait [facility] [id number] Obstructiv Problem Com mon e sleep Spirit apnea - [facility] (adult) (pediatric [facility] ) [facility] Hypertensi Hypertensi Problem C ommon on on [facility] Peripheral Peripheral Problem C ommon vascular vascular Spirit disease disease - [facility] Type II Diabetes Problem Common diabetes type 2, Spirit mellitus controlled - CH I well [facility] Cardiomyop Cardiomyop Problem C ommon athy athy [facility] [id number] Constipati Problem Com mon on, Spirit unspecifie - CHI d St constipati [facility] on [facility] [place] [id number] AICD Problem Common (automatic Spirit cardiovert - [facility] er/defibri St llator) [facility] [id number] Other Problem Common chronic [facility] pain - [facility] [id number] Tremor of Problem Com mon both hands [facility] [id number] Polyarthra Problem Com mon lgia [facility] [id number] Chest Problem Common pain, [facility] unspecifie - CHI d type [facility] [id number] Chronic Problem Common congestive [facility] heart - [facility] Center type [id number] Morbid Problem Common (severe) [facility] obesity - CHI due to [facility] [id number] Coronary Problem Com mon 107 artery Spirit disease - CHI involving [facility] coronary Medical artery of Center [place] heart, angina presence unspecifie d [id number] [place] [address] osteoarthr Spirit itis of - CHI right knee [facility] [id number] Status Problem Common post fall [facility] [id number] Falls Problem Common frequently [facility] [id number] Shortness Problem Com mon of breath [facility] Depression Depression Problem C ommon Spirit [facility] [id number] Peripheral Problem Co mmon edema [facility] [id number] Asthma, Problem Commo n unspecifie Spirit d asthma - CHI severity, [facility] whether Medical complicate Center d, unspecifie d whether persistent [id number] Non-pressu Problem Com mon re chronic Spirit ulcer of - CHI unspecifie St d part of [facility] left lower Medica l leg with Center unspecifie d severity [id number] Varicose Problem Comm on veins of Spirit left lower - CHI extremity St with ulcer [facility] Medical unspecifie Center d site Cardiac [...] heart e heart 22:53:26 l failure failure Kasi (disorder) (disorder) Active Problem 07/26/2021 [facility] Headache Headache Problem Active 2021-07-26 Mem[facility] (finding) (finding) 22:53:26 l Active [place] Problem 07/26/2021 [facility] Neoplasm Neoplasm Problem [...] Uni vers in ty to See comments 5-15 ity of adverse 00:00: [place] reaction 00 Medical s Branch Penicill Propensi Active Other - See Seizures Univers ins ty to comments 3-22 ity of adverse 00:00: [place] reaction 00 Medical s Branch PENICILL Drug Active Other-Cmnt Univ ers INS Class 3-22 ity of 00:00: [place] 00 Medical Branch Penicill Propensi Active Other - See 2016-0 Seizures Univers ins ty to comments 3- ity of adverse 00:00: [place] reaction 00 Medical s Branch Penicill Penicill Active Unknown Commo n in in [facility] - [facility] PENICILL Allergy Active [place] to da [facility] Medical e Group penicill penicill Active Memori a in in [facility] Social History Social Habit Start Date Stop Date Quantity Comments Source Exposure to 2022-10-06 2022-10-16 Not sure [facility] SARS-CoV-2 00:00:00 11:16:00 [facility] (event) Branch Alcohol intake 2022-10-10 2022-10-10 Lifetime University of 00:00:00 00:00:00 non-drinker [facility] (finding) [place] Tobacco use and 2022-04-10 2022-04-10 Smokeless tobacco Un iversity of exposure 00:00:00 00:00:00 non-user [facility] Social History 2021-02-21 2021-02-21 [facility] 19:06:01 19:06:01 History of 2014-05-19 Cigar Smoker [place] o f tobacco use 00:00:00 [facility] Sex Assigned At [address] 1960 [facility] 00:00:00 00:00:00 [facility] Center Smoking Status Start Date Stop Date Source Ex-smoker 2022-04-10 00:00:00 2022-04-10 00:00:00 Universi ty of [facility] Medications Ordered Filled Start Stop Current Ordering Indication Dosage Frequency Signature Comments Components Source Medication Medication Date Date Medication? Clinician (SIG) Name Name JARDIANCE Yes [id number] Take 1 U nivers 10 mg 6-27 tablet by ity of 00:00: mouth once [place] 00 daily Medical Branch sacubitriL- Yes 1{tbl} Take 1 Un winter valsartan 5-25 tablet by ity o f 49-51 mg 09:06: mouth in [place] tablet 22 the Medical morning Branch and 1 tablet in the evening. sacubitriL- Yes 1{tbl} Take 1 Un winter [...] and 1 tablet in the evening. MOUNJARO 2022-0 Yes Univers 2.5 mg/0.5 5-12 ity of mL PnIj 00:00: [facility] MOUNJARO 2022-0 Yes Univers 2.5 mg/0.5 5-12 ity of mL PnIj 00:00: [facility] MOUNJARO 2022-0 Yes Univers 2.5 mg/0.5 5-12 ity of mL PnIj 00:00: [facility] MOUNJARO 2022-0 Yes Univers 2.5 mg/0.5 5-12 ity of mL PnIj 00:00: [facility] MOUNJARO 2022-0 Yes Univers 2.5 mg/0.5 5-12 ity of mL PnIj 00:00: [facility] MOUNJARO 2022-0 Yes Univers 2.5 mg/0.5 5-12 ity of mL PnIj 00:00: Medical Branch MOUNJARO 3-0 Yes Univers 2.5 mg/0.5 5-12 ity of mL PnIj 00:00: [place] [facility] JARDIANCE 3-0 Yes [id number] Take 1 U nivers 10 mg 4-03 tablet by ity of 00:00: mouth once [place] daily Medical Branch JARDIANCE 3-0 Yes [id number] Take 1 U nivers 10 mg 4-03 tablet by ity of 00:00: mouth once [place] daily Medical Branch JARDIANCE 3-0 Yes [id number] Take 1 U nivers 10 mg 4-03 tablet by ity of 00:00: mouth once [place] daily Medical Branch JARDIANCE 3-0 Yes [id number] Take 1 U nivers 10 mg 4-03 tablet by ity of 00:00: mouth once [place] daily Medical Branch JARDIANCE 3-0 Yes [id number] Take 1 U nivers 10 mg 4-03 tablet by ity of 00:00: mouth once [place] daily Medical Branch JARDIANCE 3-0 Yes [id number] Take 1 U nivers 10 mg 4-03 tablet by ity of 00:00: mouth once [place] daily Medical Branch JARDIANCE 3-0 Yes [id number] Take 1 U nivers 10 mg 4-03 tablet by ity of 00:00: mouth once [place] daily Medical Branch JARDIANCE 3-0 Yes [id number] Take 1 U nivers 10 mg 4-03 tablet by ity of 00:00: mouth once [place] daily Medical Branch JARDIANCE 3-0 Yes [id number] Take 1 U nivers 10 mg 4-03 tablet by ity of 00:00: mouth once [place] daily Medical Branch JARDIANCE 3-0 Yes [id number] Take 1 U nivers 10 mg 4-03 tablet by ity of 00:00: mouth once [place] daily Medical Branch JARDIANCE 3-0 Yes [id number] Take 1 U nivers 10 mg 4-03 tablet by ity of 00:00: mouth once [place] daily Medical Branch JARDIANCE 3-0 Yes [id number] Take 1 U nivers 10 mg 4-03 tablet by ity of 00:00: mouth once [place] daily Medical Branch JARDIANCE 2023-0 Yes [id number] Take 1 U nivers 10 mg 4-03 tablet by ity of 00:00: mouth once [place] daily Medical Branch JARDIANCE 3-0 Yes [id number] Take 1 U nivers 10 mg 4-03 tablet by ity of 00:00: mouth once [place] daily Medical Branch JARDIANCE 3-0 Yes [id number] Take 1 U nivers 10 mg 4-03 tablet by ity of 00:00: mouth once [place] daily Medical Branch JARDIANCE 3-0 Yes [id number] Take 1 U nivers 10 mg 4-03 tablet by ity of 00:00: mouth once [place] daily Medical Branch JARDIANCE 3-0 Yes [id number] Take 1 U nivers 10 mg 4-03 tablet by ity of 00:00: mouth once [place] daily Medical Branch JARDIANCE 2022-0 Yes [id number] Take 1 U nivers 10 mg 4-03 tablet by ity of 00:00: mouth once [place] daily Medical Branch JARDIANCE 3-0 Yes [id number] Take 1 U nivers 10 mg 4-03 tablet by ity of 00:00: mouth once [place] daily Medical Branch JARDIANCE 3-0 Yes [id number] Take 1 U nivers 10 mg 4-03 tablet by ity of 00:00: mouth once [place] daily Medical Branch JARDIANCE 3-0 Yes [id number] Take 1 U nivers 10 mg 4-03 tablet by ity of 00:00: mouth once [place] daily Medical Branch JARDIANCE 3-0 Yes [id number] Take 1 U nivers 10 mg 4-03 tablet by ity of 00:00: mouth once [place] daily Medical Branch JARDIANCE 3-0 Yes [id number] Take 1 U nivers 10 mg 4-03 tablet by ity of 00:00: mouth once [place] daily Medical Branch JARDIANCE 3-0 Yes [id number] Take 1 U nivers 10 mg 4-03 tablet by ity of 00:00: mouth once [place] daily Medical Branch JARDIANCE 2023-0 2023- No [id number] Take 1 Univers 10 mg 4-03 06-27 tablet by ity of 00:00: 00:00 mouth once [place] 00 :00 daily Medical Branch spironolact 2022-0 Yes [id number] 12.5mg Take 0.5 Univers one 25 mg 3-29 tablets by ity of tablet 00:00: mouth in [place] the Medical morning. Branch spironolact 2023-0 Yes [id number] 12.5mg Take 0.5 Univers one 25 mg 3-29 tablets by ity of tablet 00:00: mouth in [place] the Medical morning. Branch spironolact 2023-0 Yes [id number] 12.5mg Take 0.5 Univers one 25 mg 3-29 tablets by ity of tablet 00:00: mouth in [place] the Medical morning. Branch spironolact 2023-0 Yes [id number] 12.5mg Take 0.5 Univers one 25 mg 3-29 tablets by ity of tablet 00:00: mouth in [place] the Medical morning. Branch spironolact 2023-0 Yes [id number] 12.5mg Take 0.5 Univers one 25 mg 3-29 tablets by ity of tablet 00:00: mouth in [place] the Medical morning. Branch spironolact 2023-0 Yes [id number] 12.5mg Take 0.5 Univers one 25 mg 3-29 tablets by ity of tablet 00:00: mouth in [place] the Medical morning. Branch spironolact 2023-0 Yes [id number] 12.5mg Take 0.5 Univers one 25 mg 3-29 tablets by ity of tablet 00:00: mouth in [place] the Medical morning. Branch spironolact 2023-0 Yes [id number] 12.5mg Take 0.5 Univers one 25 mg 3-29 tablets by ity of tablet 00:00: mouth in [place] the Medical morning. Branch spironolact 2023-0 Yes [id number] 12.5mg Take 0.5 Univers one 25 mg 3-29 tablets by ity of tablet 00:00: mouth in [place] the Medical morning. Branch spironolact 2023-0 Yes [id number] 12.5mg Take 0.5 Univers one 25 mg 3-29 tablets by ity of tablet 00:00: mouth in [place] the Medical morning. Branch spironolact 2023-0 Yes [id number] 12.5mg Take 0.5 Univers one 25 mg 3-29 tablets by ity of tablet 00:00: mouth in [place] the Medical morning. Branch spironolact 2023-0 Yes [id number] 12.5mg Take 0.5 Univers one 25 mg 3-29 tablets by ity of tablet 00:00: mouth in [place] the Medical morning. Branch spironolact 2023-0 Yes [id number] 12.5mg Take 0.5 Univers one 25 mg 3-29 tablets by ity of tablet 00:00: mouth in [place] the Medical morning. Branch spironolact 2023-0 Yes [id number] 12.5mg Take 0.5 Univers one 25 mg 3-29 tablets by ity of tablet 00:00: mouth in [place] the Medical morning. Branch spironolact 2023-0 Yes [id number] 12.5mg Take 0.5 Univers one 25 mg 3-29 tablets by ity of tablet 00:00: mouth in [place] the Medical morning. Branch spironolact 2023-0 Yes [id number] 12.5mg Take 0.5 Univers one 25 mg 3-29 tablets by ity of tablet 00:00: mouth in [place] the Medical morning. Branch spironolact 2023-0 Yes [id number] 12.5mg Take 0.5 Univers one 25 mg 3-29 tablets by ity of tablet 00:00: mouth in [place] the Medical morning. Branch spironolact 2023-0 Yes [id number] 12.5mg Take 0.5 Univers one 25 mg 3-29 tablets by ity of tablet 00:00: mouth in [place] the Medical morning. Branch spironolact 2023-0 Yes [id number] 12.5mg Take 0.5 Univers one 25 mg 3-29 tablets by ity of tablet 00:00: mouth in [place] the Medical morning. Branch spironolact 2023-0 Yes [id number] 12.5mg Take 0.5 Univers one 25 mg 3-29 tablets by ity of tablet 00:00: mouth in [place] the Medical morning. Branch spironolact 2023-0 Yes [id number] 12.5mg Take 0.5 Univers one 25 mg 3-29 tablets by ity of tablet 00:00: mouth in [place] the Medical morning. Branch spironolact 2023-0 Yes [id number] 12.5mg Take 0.5 Univers one 25 mg 3-29 tablets by ity of tablet 00:00: mouth in [place] the Medical morning. Branch spironolact 2023-0 Yes [id number] 12.5mg Take 0.5 Univers one 25 mg 3-29 tablets by ity of tablet 00:00: mouth in [place] the Medical morning. Branch spironolact 2023-0 Yes [id number] 12.5mg Take 0.5 Univers one 25 mg 3-29 tablets by ity of tablet 00:00: mouth in [place] 00 the Medical morning. Branch spironolact 2023-0 Yes [id number] 12.5mg Take 0.5 Univers one 25 mg 3-29 tablets by ity of tablet 00:00: mouth in [place] the Medical morning. Branch spironolact 2023-0 Yes [id number] 12.5mg Take 0.5 Univers one 25 mg 3-29 tablets by ity of tablet 00:00: mouth in [place] the Medical morning. Branch spironolact 2023-0 Yes [id number] 12.5mg Take 0.5 Univers one 25 mg 3-29 tablets by ity of tablet 00:00: mouth in [place] the Medical morning. Branch spironolact 3-0 Yes [id number] 12.5mg Take 0.5 Univers one 25 mg 3-29 tablets by ity of tablet 00:00: mouth in [place] the Medical morning. Branch spironolact 3-0 Yes [id number] 12.5mg Take 0.5 Univers one 25 mg 3-29 tablets by ity of tablet 00:00: mouth in [place] the Medical morning. Branch metformin 2022-0 Yes [...] by mouth ity of 13:01: daily with [place] 33 breakfast. Medical Branch metformin 2023-0 Yes 500mg [...] by mouth ity of 13:01: daily with [place] [address] breakfast. Medical Branch metformin 2022-0 Yes 500mg [...] by mouth ity of 13:01: daily with [place] [address] breakfast. Medical Branch metformin 3-0 Yes 500mg [...] by mouth ity of 13:01: daily with [place] [address] breakfast. Medical Branch metformin 3-0 Yes 500mg [...] by mouth ity of 13:01: daily with [place] [address] breakfast. Medical Branch metformin 3-0 Yes 500mg [...] by mouth ity of 13:01: daily with [place] [address] breakfast. Medical Branch metformin 2022-0 Yes 500mg [...] by mouth ity of 13:01: daily with [place] [address] breakfast. Medical Branch metformin 3-0 Yes 500mg [...] by mouth ity of 13:01: daily with [place] [address] breakfast. Medical Branch metformin 2023-0 Yes 500mg [...] by mouth ity of 13:01: daily with [place] [address] breakfast. Medical Branch metformin 2023-0 Yes 500mg [...] by mouth ity of 13:01: daily with [place] [address] breakfast. Medical Branch metformin 3-0 Yes 500mg [...] by mouth ity of 13:01: daily with [place] [address] breakfast. Medical Branch metformin 2023-0 Yes 500mg [...] with [place] 33 breakfast. Medical Branch metformin 2023-0 Yes 500mg [...] with [place] 33 breakfast. Medical Branch metformin 3-0 Yes [...] with [place] 33 breakfast. Medical Branch metformin 3-0 Yes 500mg Take 500 Uni vers HCl 2-20 mg by ity of (METFORMIN 13:01: mouth 2 [place] ORAL[place] 33 (two) Medical times Branch daily with meals. glimepiride 2023-0 Yes 2mg Take 2 mg U nivers 2 mg tablet 2-20 by mouth ity of 13:01: daily with [place] 33 breakfast. Medical Branch metformin 2023-0 Yes 500mg Take 500 Uni vers HCl 2-20 mg by ity of (METFORMIN 13:01: mouth 2 [place]AL[place] 33 (two) Medical times Branch daily with meals. glimepiride 2023-0 Yes 2mg Take 2 mg U nivers 2 mg tablet 2-20 by mouth ity of 13:01: daily with [place] 33 breakfast. Medical Branch metformin 2023-0 Yes 500mg Take 500 Uni vers HCl 2-20 mg by ity of (METFORMIN 13:01: mouth 2 [place] ORAL[place] 33 (two) Medical times Branch daily with meals. glimepiride 2023-0 Yes 2mg Take 2 mg U nivers 2 mg tablet 2-20 by mouth ity of 13:01: daily with [place] [address] breakfast. Medical Branch metformin 3-0 Yes 500mg Take 500 Uni vers HCl 2-20 mg by ity of (METFORMIN 13:01: mouth 2 [place]AL[place] 33 (two) Medical times Branch daily with meals. glimepiride 2023-0 Yes 2mg Take 2 mg U nivers 2 mg tablet 2-20 by mouth ity of 13:01: daily with [place] [address] breakfast. Medical Branch metformin 2022-0 Yes 500mg Take 500 Uni vers HCl 2-20 mg by ity of (METFORMIN 13:01: mouth 2 [place]AL[place] 33 (two) Medical times Branch daily with meals. glimepiride 2023-0 Yes 2mg Take 2 mg U nivers 2 mg tablet 2-20 by mouth ity of 13:01: daily with [place] [address] breakfast. Medical Branch metformin 2022-0 Yes 500mg Take 500 Uni vers HCl 2-20 mg by ity of (METFORMIN 13:01: mouth 2 [place]AL[place] (two) Medical times Branch daily with meals. glimepiride 2023-0 Yes 2mg Take 2 mg U nivers 2 mg tablet 2-20 by mouth ity of 13:01: daily with [place] [address] breakfast. Medical Branch metformin 3-0 Yes 500mg Take 500 Uni vers HCl 2-20 mg by ity of (METFORMIN 13:01: mouth 2 [place]AL[place] (two) Medical times Branch daily with meals. glimepiride 2023-0 Yes 2mg Take 2 mg U nivers 2 mg tablet 2-20 by mouth ity of 13:01: daily with [place] [address] breakfast. Medical Branch metformin 3-0 Yes 500mg [...] by mouth ity of 13:01: daily with [place] [address] breakfast. Medical Branch metformin 2022-0 Yes 500mg [...] by mouth ity of 13:01: daily with [place] [address] breakfast. Medical Branch metformin 2022-0 Yes 500mg [...] by mouth ity of 13:01: daily with [place] [address] breakfast. Medical Branch metformin 3-0 Yes 500mg [...] by mouth ity of 13:01: daily with [place] [address] breakfast. Medical Branch metformin 3-0 Yes 500mg [...] by mouth ity of 13:01: daily with [place] [address] breakfast. Medical Branch metformin 2023-0 Yes 500mg [...] by mouth ity of 13:01: daily with [place] [address] breakfast. Medical Branch metformin 3-0 Yes 500mg [...] by mouth ity of 13:01: daily with [place] [address] breakfast. Medical Branch metformin 2023-0 Yes 500mg [...] with [place] 33 breakfast. Medical Branch metformin 2023-0 Yes 500mg [...] with [place] 33 breakfast. Medical Branch metformin 3-0 Yes [...] with [place] 33 breakfast. Medical Branch metformin 3-0 Yes [...] with [place] 33 breakfast. Medical Branch metformin 2023-0 Yes 500mg [...] by mouth ity of 13:01: daily with [place] [address] breakfast. Medical Branch metformin 3-0 Yes 500mg [...] by mouth ity of 13:01: daily with [place] [address] breakfast. Medical Branch metformin 2022-0 Yes 500mg [...] by mouth ity of 13:01: daily with [place] [address] breakfast. Medical Branch metformin 3-0 Yes 500mg [...] by mouth ity of 13:01: daily with [place] [address] breakfast. Medical Branch metformin 0 Yes 500mg Take 500 Uni vers HCl 2-20 mg by ity of (METFORMIN 13:01: mouth 2 [place] ORAL[place] 33 (two) Medical times [place] daily with meals. sacubitriL- 2022-0 Yes 1{tbl} Take 1 Un winter valsartan 2-20 tablet by ity o f 49-51 mg 13:01: mouth 2 [place] tablet 33 (two) Medical times [place] daily. glimepiride 0 Yes 2mg Take 2 mg U nivers 2 mg tablet 2-20 by mouth ity of 13:01: daily with [place] [address] breakfast. Medical Branch bumetanide 2022-0 Yes 1mg TAKE 1 Unive rs 1 mg tablet 1-12 TABLET BY ity of 00:00: MOUTH IN [place] THE Medical MORNING Branch AND 1 TABLET IN THE EVENING bumetanide 2022-0 Yes 1mg TAKE 1 Unive rs 1 mg tablet 1-12 TABLET BY ity of 00:00: MOUTH IN [place] THE Medical MORNING Branch AND 1 TABLET IN THE EVENING bumetanide 2022-0 Yes 1mg TAKE 1 Unive rs 1 mg tablet 1-12 TABLET BY ity of 00:00: MOUTH IN [place] THE Medical MORNING Branch AND 1 TABLET IN THE EVENING bumetanide 2022-0 Yes 1mg TAKE 1 Unive rs 1 mg tablet 1-12 TABLET BY ity of 00:00: MOUTH IN [place] THE Medical MORNING Branch AND 1 TABLET IN THE EVENING bumetanide 2022-0 Yes 1mg TAKE 1 Unive rs 1 mg tablet 1-12 TABLET BY ity of 00:00: MOUTH IN [place] THE Medical MORNING Branch AND 1 TABLET IN THE EVENING bumetanide 2022-0 Yes 1mg TAKE 1 Unive rs 1 mg tablet 1-12 TABLET BY ity of 00:00: MOUTH IN [place] THE Medical MORNING Branch AND 1 TABLET IN THE EVENING bumetanide 3-0 Yes 1mg TAKE 1 Unive rs 1 mg tablet 1-12 TABLET BY ity of 00:00: MOUTH IN [place] THE Medical MORNING Branch AND 1 TABLET IN THE EVENING bumetanide 3-0 Yes 1mg TAKE 1 Unive rs 1 mg tablet 1-12 TABLET BY ity of 00:00: MOUTH IN [place] 00 THE Medical MORNING Branch AND 1 TABLET IN THE EVENING bumetanide 3-0 Yes 1mg TAKE 1 Unive rs 1 mg tablet 1-12 TABLET BY ity of 00:00: MOUTH IN [place] 00 THE Medical MORNING Branch AND 1 TABLET IN THE EVENING bumetanide 3-0 Yes 1mg TAKE 1 Unive rs 1 mg tablet 1-12 TABLET BY ity of 00:00: MOUTH IN [place] 00 THE Medical MORNING Branch AND 1 TABLET IN THE EVENING bumetanide 3-0 Yes 1mg TAKE 1 Unive rs 1 mg tablet 1-12 TABLET BY ity of 00:00: MOUTH IN [place] 00 THE Medical MORNING Branch AND 1 TABLET IN THE EVENING bumetanide 3-0 Yes 1mg TAKE 1 [facility] 1 mg tablet 1-12 TABLET BY [facility] 00:00: MOUTH IN [place] 00 THE Medical MORNING Branch AND 1 TABLET IN THE EVENING bumetanide 3-0 Yes 1mg TAKE 1 [facility] 1 mg tablet 1-12 TABLET BY [facility] of 00:00: MOUTH IN [place] 00 THE Medical MORNING Branch AND 1 TABLET IN THE EVENING bumetanide 3-0 Yes 1mg TAKE 1 [facility] 1 mg tablet 1-12 TABLET BY [facility] of 00:00: MOUTH IN [place] 00 THE Medical MORNING Branch AND 1 TABLET IN THE EVENING bumetanide 3-0 Yes 1mg TAKE 1 [facility] 1 mg tablet 1-12 TABLET BY [facility] 00:00: MOUTH IN [place] 00 THE Medical MORNING Branch AND 1 TABLET IN THE EVENING bumetanide 3-0 Yes 1mg TAKE 1 [facility] 1 mg tablet 1-12 TABLET BY [facility] 00:00: MOUTH IN [place] 00 THE Medical MORNING Branch AND 1 TABLET IN THE EVENING bumetanide 3-0 Yes 1mg TAKE 1 [facility] 1 mg tablet 1-12 TABLET BY [facility] 00:00: MOUTH IN [place] 00 THE Medical MORNING Branch AND 1 TABLET IN THE EVENING bumetanide 3-0 Yes 1mg TAKE 1 [facility] 1 mg tablet 1-12 TABLET BY [facility] of 00:00: MOUTH IN [place] 00 THE Medical MORNING Branch AND 1 TABLET IN THE EVENING bumetanide 3-0 Yes 1mg TAKE 1 [facility] 1 mg tablet 1-12 TABLET BY [facility] 00:00: MOUTH IN [place] 00 THE Medical MORNING Branch AND 1 TABLET IN THE EVENING bumetanide 3-0 Yes 1mg TAKE 1 [facility] 1 mg tablet 1-12 TABLET BY [facility] 00:00: MOUTH IN [place] 00 THE Medical MORNING Branch AND 1 TABLET IN THE EVENING bumetanide 3-0 Yes 1mg TAKE 1 [facility] 1 mg tablet 1-12 TABLET BY [facility] 00:00: MOUTH IN [place] 00 THE Medical MORNING Branch AND 1 TABLET IN THE EVENING bumetanide 3-0 Yes 1mg TAKE 1 [facility] 1 mg tablet 1-12 TABLET BY [facility] 00:00: MOUTH IN [place] 00 THE Medical MORNING Branch AND 1 TABLET IN THE EVENING bumetanide 3-0 Yes 1mg TAKE 1 [facility] 1 mg tablet 1-12 TABLET BY [facility] 00:00: MOUTH IN [place] 00 THE Medical MORNING Branch AND 1 TABLET IN THE EVENING bumetanide 3-0 Yes 1mg TAKE 1 [facility] 1 mg tablet 1-12 TABLET BY [facility] 00:00: MOUTH IN [place] 00 THE Medical MORNING Branch AND 1 TABLET IN THE EVENING bumetanide 3-0 Yes 1mg TAKE 1 [facility] 1 mg tablet 1-12 TABLET BY [facility] 00:00: MOUTH IN [place] 00 THE Medical MORNING Branch AND 1 TABLET IN THE EVENING bumetanide 3-0 Yes 1mg TAKE 1 [facility] 1 mg tablet 1-12 TABLET BY [facility] 00:00: MOUTH IN [place] THE Medical MORNING Branch AND 1 TABLET IN THE EVENING bumetanide 3-0 Yes 1mg TAKE 1 [facility] 1 mg tablet 1-12 TABLET BY [facility] 00:00: MOUTH IN [place] 00 THE Medical MORNING Branch AND 1 TABLET IN THE EVENING bumetanide 3-0 Yes 1mg TAKE 1 [facility] 1 mg tablet 1-12 TABLET BY [facility] 00:00: MOUTH IN [place] 00 THE Medical MORNING Branch AND 1 TABLET IN THE EVENING bumetanide 3-0 Yes 1mg TAKE 1 [facility] 1 mg tablet 1-12 TABLET BY [facility] 00:00: MOUTH IN [place] 00 THE Medical MORNING Branch AND 1 TABLET IN THE EVENING bumetanide 3-0 Yes 1mg TAKE 1 [facility] 1 mg tablet 1-12 TABLET BY [facility] 00:00: MOUTH IN [place] 00 THE Medical MORNING Branch AND 1 TABLET IN THE EVENING bumetanide 2022-0 Yes 1mg TAKE 1 [facility] 1 mg tablet 1-12 TABLET BY [facility] 00:00: MOUTH IN [place] 00 THE Medical MORNING Branch AND 1 TABLET IN THE EVENING bumetanide 2022-0 Yes 1mg TAKE 1 [facility] 1 mg tablet 1-12 TABLET BY [facility] 00:00: MOUTH IN [place] 00 THE Medical MORNING Branch AND 1 TABLET IN THE EVENING bumetanide 2022-0 Yes 1mg TAKE 1 [facility] 1 mg tablet 1-12 TABLET BY [facility] 00:00: MOUTH IN [place] 00 THE Medical MORNING Branch AND 1 TABLET IN THE EVENING bumetanide 2022-0 Yes 1mg TAKE 1 [facility] 1 mg tablet 1-12 TABLET BY [facility] 00:00: MOUTH IN [place] 00 THE Medical MORNING Branch AND 1 TABLET IN THE EVENING bumetanide 2022-0 Yes 1mg TAKE 1 [facility] 1 mg tablet 1-12 TABLET BY [facility] 00:00: MOUTH IN [place] 00 THE Medical MORNING Branch AND 1 TABLET IN THE EVENING bumetanide 2022-0 Yes 1mg TAKE 1 [facility] 1 mg tablet 1-12 TABLET BY [facility] 00:00: MOUTH IN [place] 00 THE Medical MORNING Branch AND 1 TABLET IN THE EVENING bumetanide 2022-0 Yes 1mg TAKE 1 [facility] 1 mg tablet 1-12 TABLET BY [facility] 00:00: MOUTH IN [place] 00 THE Medical MORNING Branch AND 1 TABLET IN THE EVENING bumetanide 2022-0 Yes 1mg TAKE 1 [facility] 1 mg tablet 1-12 TABLET BY [facility] 00:00: MOUTH IN [place] 00 THE Medical MORNING Branch AND 1 TABLET IN THE EVENING bumetanide 2022-0 Yes 1mg TAKE 1 [facility] 1 mg tablet 1-12 TABLET BY [facility] 00:00: MOUTH IN [place] 00 THE Medical MORNING Branch AND 1 [...] by [facility] of tablet 00:00: mouth in [place] 00 the Medical morning. Branch carvediloL 2021-05 Yes 6.25mg Take 1 [facility] 6.25 mg 0-11 tablet by [facility] tablet 00:00: mouth in [place] 00 the Medical morning Branch and 1 tablet in the evening. Take with meals. meclizine 2021-05 Yes 25mg Take 1 [facility] 25 mg 0-11 tablet by [facility] of tablet 00:00: mouth in [place] 00 the Medical morning Branch and 1 tablet at noon and 1 tablet in the evening. amiodarone 2021-05 Yes 200mg Take 1 [facility] 200 mg 0-11 tablet by [facility] of tablet 00:00: mouth in [place] 00 the Medical morning. Branch aspirin 81 2021-05 Yes 81mg Take 1 [facility] mg EC 0-11 tablet by [facility] of tablet 00:00: mouth in [place] the morning. Branch carvediloL 2021-05 Yes 6.25mg Take 1 [facility] 6.25 mg 0-11 tablet by [facility] tablet 00:00: mouth in [place] 00 the Medical morning Branch and 1 tablet in the evening. Take with meals. meclizine 2021-05 Yes 25mg Take 1 [facility] 25 mg 0-11 tablet by [facility] of tablet 00:00: mouth in [place] 00 the Medical morning Branch and 1 tablet at noon and 1 tablet in the evening. amiodarone 2021-05 Yes 200mg Take 1 [facility] 200 mg 0-11 tablet by [facility] of tablet 00:00: mouth in [place] 00 the Medical morning. Branch aspirin 81 2021-05 Yes 81mg Take 1 [facility] mg EC 0-11 tablet by [facility] of tablet 00:00: mouth in [place] 00 the Medical morning. Branch carvediloL 2021-05 Yes 6.25mg Take 1 [facility] 6.25 mg 0-11 tablet by [facility] tablet 00:00: mouth in [place] 00 the Medical morning Branch and 1 tablet in the evening. Take with meals. meclizine 2021-05 Yes 25mg Take 1 [facility] 25 mg 0-11 tablet by [facility] of tablet 00:00: mouth in [place] the Medical morning Branch and 1 tablet at noon and 1 tablet in the evening. amiodarone 2021-05 Yes 200mg Take 1 [facility] 200 mg 0-11 tablet by [facility] of tablet 00:00: mouth in [place] the morning. Branch aspirin 81 2021-05 Yes 81mg Take 1 [facility] mg EC 0-11 tablet by [facility] of tablet 00:00: mouth in [place] the morning. Branch carvediloL 2021-05 Yes 6.25mg Take 1 [facility] 6.25 mg 0-11 tablet by [facility] tablet 00:00: mouth in [place] the Medical morning Branch and 1 tablet in the evening. Take with meals. meclizine 2021-05 Yes 25mg Take 1 [facility] 25 mg 0-11 tablet by [facility] tablet 00:00: mouth in [place] the Medical morning Branch and 1 tablet at noon and 1 tablet in the evening. amiodarone 2021-05 Yes 200mg Take 1 [facility] 200 mg 0-11 tablet by [facility] of tablet 00:00: mouth in [place] the morning. Branch aspirin 81 2021-05 Yes 81mg Take 1 [facility] mg EC 0-11 tablet by [facility] of tablet 00:00: mouth in [place] the morning. Branch carvediloL 2021-05 Yes 6.25mg Take 1 [facility] 6.25 mg 0-11 tablet by [facility] tablet 00:00: mouth in [place] the morning Branch and 1 tablet in the evening. Take with meals. meclizine 2021-05 Yes 25mg Take 1 [facility] 25 mg 0-11 tablet by [facility] tablet 00:00: mouth in [place] the Medical morning Branch and 1 tablet at noon and 1 tablet in the evening. amiodarone 2021-05 Yes 200mg Take 1 [facility] 200 mg 0-11 tablet by [facility] tablet 00:00: mouth in [place] the morning. Branch aspirin 81 2021-05 Yes 81mg Take 1 [facility] mg EC 0-11 tablet by [facility] tablet 00:00: mouth in [place] the morning. Branch carvediloL 2021-05 Yes 6.25mg Take 1 [facility] 6.25 mg 0-11 tablet by [facility] tablet 00:00: mouth in [place] the Medical morning Branch and 1 tablet in the evening. Take with meals. meclizine 2021-05 Yes 25mg Take 1 [facility] 25 mg 0-11 tablet by [facility] tablet 00:00: mouth in [place] the morning Branch and 1 tablet at noon and 1 tablet in the evening. amiodarone 2021-05 Yes 200mg Take 1 [facility] 200 mg 0-11 tablet by [facility] tablet 00:00: mouth in [place] the . Branch aspirin 81 2021-05 Yes 81mg Take 1 [facility] mg EC 0-11 tablet by [facility] tablet 00:00: mouth in [place] the morning. Branch carvediloL 2021-05 Yes 6.25mg Take 1 [facility] 6.25 mg 0-11 tablet by [facility] tablet 00:00: mouth in [place] the morning Branch and 1 tablet in the evening. Take with meals. meclizine 2021-05 Yes 25mg Take 1 [facility] 25 mg 0-11 tablet by [facility] tablet 00:00: mouth in [place] the morning Branch and 1 tablet at noon and 1 tablet in the evening. amiodarone 2021-05 Yes 200mg Take 1 [facility] 200 mg 0-11 tablet by [facility] tablet 00:00: mouth in [place] the . Branch aspirin 81 2021-05 Yes 81mg Take 1 [facility] mg EC 0-11 tablet by [facility] tablet 00:00: mouth in [place] the . Branch carvediloL 2021-05 Yes 6.25mg Take 1 [facility] 6.25 mg 0-11 tablet by [facility] tablet 00:00: mouth in [place] the morning Branch and 1 tablet in the evening. Take with meals. meclizine 2021-05 Yes 25mg Take 1 [facility] 25 mg 0-11 tablet by [facility] tablet 00:00: mouth in [place] the morning Branch and 1 tablet at noon and 1 tablet in the evening. amiodarone 2021-05 Yes 200mg Take 1 [facility] 200 mg 0-11 tablet by [facility] tablet 00:00: mouth in [place] the morning. Branch aspirin 81 2021-05 Yes 81mg Take 1 [facility] mg EC 0-11 tablet by [facility] tablet 00:00: mouth in [place] the morning. Branch carvediloL 2021-05 Yes 6.25mg Take 1 [facility] 6.25 mg 0-11 tablet by [facility] tablet 00:00: mouth in [place] the morning Branch and 1 tablet in the evening. Take with meals. meclizine 2021-05 Yes 25mg Take 1 [facility] 25 mg 0-11 tablet by [facility] tablet 00:00: mouth in [place] the morning Branch and 1 tablet at noon and 1 tablet in the evening. amiodarone 2021-05 Yes 200mg Take 1 [facility] 200 mg 0-11 tablet by [facility] tablet 00:00: mouth in [place] the morning. Branch aspirin 81 2021-05 Yes 81mg Take 1 [facility] mg EC 0-11 tablet by [facility] tablet 00:00: mouth in [place] the . Branch carvediloL 2021-05 Yes 6.25mg Take 1 [facility] 6.25 mg 0-11 tablet by [facility] tablet 00:00: mouth in [place] the morning Branch and 1 tablet in the evening. Take with meals. meclizine 2021-05 Yes 25mg Take 1 [facility] 25 mg 0-11 tablet by [facility] tablet 00:00: mouth in [place] the morning Branch and 1 tablet at noon and 1 tablet in the evening. amiodarone 2021-05 Yes 200mg Take 1 [facility] 200 mg 0-11 tablet by [facility] tablet 00:00: mouth in [place] the . Branch aspirin 81 2021-05 Yes 81mg Take 1 [facility] mg EC 0-11 tablet by [facility] of tablet 00:00: mouth in [place] the . Branch carvediloL 2021-05 Yes 6.25mg Take 1 [facility] 6.25 mg 0-11 tablet by [facility] tablet 00:00: mouth in [place] the morning Branch and 1 tablet in the evening. Take with meals. meclizine 2021-05 Yes 25mg Take 1 [facility] 25 mg 0-11 tablet by [facility] tablet 00:00: mouth in [place] the morning Branch and 1 tablet at noon and 1 tablet in the evening. amiodarone 2021-05 Yes 200mg Take 1 [facility] 200 mg 0-11 tablet by [facility] of tablet 00:00: mouth in [place] the morning. Branch aspirin 81 2021-05 Yes 81mg Take 1 [facility] mg EC 0-11 tablet by [facility] of tablet 00:00: mouth in [place] the morning. Branch carvediloL 2021-05 Yes 6.25mg Take 1 [facility] 6.25 mg 0-11 tablet by [facility] tablet 00:00: mouth in [place] the Medical morning Branch and 1 tablet in the evening. Take with meals. meclizine 2021-05 Yes 25mg Take 1 [facility] 25 mg 0-11 tablet by [facility] tablet 00:00: mouth in [place] the Medical morning Branch and 1 tablet at noon and 1 tablet in the evening. amiodarone 2021-05 Yes 200mg Take 1 [facility] 200 mg 0-11 tablet by [facility] tablet 00:00: mouth in [place] the morning. Branch aspirin 81 2021-05 Yes 81mg Take 1 [facility] mg EC 0-11 tablet by [facility] tablet 00:00: mouth in [place] the morning. Branch carvediloL 2021-05 Yes 6.25mg Take 1 [facility] 6.25 mg 0-11 tablet by [facility] tablet 00:00: mouth in [place] the Medical morning Branch and 1 tablet in the evening. Take with meals. meclizine 2021-05 Yes 25mg Take 1 [facility] 25 mg 0-11 tablet by [facility] tablet 00:00: mouth in [place] the Medical morning Branch and 1 tablet at noon and 1 tablet in the evening. amiodarone 2021-05 Yes 200mg Take 1 [facility] 200 mg 0-11 tablet by [facility] of tablet 00:00: mouth in [place] the morning. Branch aspirin 81 2021-05 Yes 81mg Take 1 [facility] mg EC 0-11 tablet by [facility] of tablet 00:00: mouth in [place] the morning. Branch carvediloL 2021-05 Yes 6.25mg Take 1 [facility] 6.25 mg 0-11 tablet by [facility] tablet 00:00: mouth in [place] the Medical morning Branch and 1 tablet in the evening. Take with meals. meclizine 2021- Yes 25mg Take 1 [facility] 25 mg 0-11 tablet by [facility] tablet 00:00: mouth in [place] the Medical morning Branch and 1 tablet at noon and 1 tablet in the evening. amiodarone 2021-05 Yes 200mg Take 1 [facility] 200 mg 0-11 tablet by [facility] of tablet 00:00: mouth in [place] the morning. Branch aspirin 81 2021-05 Yes 81mg Take 1 [facility] mg EC 0-11 tablet by [facility] of tablet 00:00: mouth in [place] the morning. Branch carvediloL 2021-05 Yes 6.25mg Take 1 [facility] 6.25 mg 0-11 tablet by [facility] tablet 00:00: mouth in [place] the Medical morning Branch and 1 tablet in the evening. Take with meals. meclizine 2021-05 Yes 25mg Take 1 [facility] 25 mg 0-11 tablet by [facility] of tablet 00:00: mouth in [place] the Medical morning Branch and 1 tablet at noon and 1 tablet in the evening. amiodarone 2021-05 Yes 200mg Take 1 [facility] 200 mg 0-11 tablet by [facility] of tablet 00:00: mouth in [place] the morning. Branch aspirin 81 2021-05 Yes 81mg Take 1 [facility] mg EC 0-11 tablet by [facility] of tablet 00:00: mouth in [place] the morning. Branch carvediloL 2021-05 Yes 6.25mg Take 1 [facility] 6.25 mg 0-11 tablet by [facility] tablet 00:00: mouth in [place] the Medical morning Branch and 1 tablet in the evening. Take with meals. meclizine 2021-05 Yes 25mg Take 1 [facility] 25 mg 0-11 tablet by [facility] tablet 00:00: mouth in [place] the Medical morning Branch and 1 tablet at noon and 1 tablet in the evening. amiodarone 2021-05 Yes 200mg Take 1 [facility] 200 mg 0-11 tablet by [facility] of tablet 00:00: mouth in [place] the morning. Branch aspirin 81 2021-05 Yes 81mg Take 1 [facility] mg EC 0-11 tablet by [facility] of tablet 00:00: mouth in [place] the morning. Branch carvediloL 2021-05 Yes 6.25mg Take 1 [facility] 6.25 mg 0-11 tablet by [facility] of tablet 00:00: mouth in [place] the Medical morning Branch and 1 tablet in the evening. Take with meals. meclizine 2021-05 Yes 25mg Take 1 [facility] 25 mg 0-11 tablet by [facility] of tablet 00:00: mouth in [place] the morning Branch and 1 tablet at noon and 1 tablet in the evening. amiodarone 2021-05 Yes 200mg Take 1 [facility] 200 mg 0-11 tablet by [facility] of tablet 00:00: mouth in [place] the . Branch aspirin 81 2021-05 Yes 81mg Take 1 [facility] mg EC 0-11 tablet by [facility] of tablet 00:00: mouth in [place] the morning. Branch carvediloL 2021-05 Yes 6.25mg Take 1 [facility] 6.25 mg 0-11 tablet by [facility] of tablet 00:00: mouth in [place] the morning Branch and 1 tablet in the evening. Take with meals. meclizine 2021-05 Yes 25mg Take 1 [facility] 25 mg 0-11 tablet by [facility] of tablet 00:00: mouth in [place] the morning Branch and 1 tablet at noon and 1 tablet in the evening. amiodarone 2021-05 Yes 200mg Take 1 [facility] 200 mg 0-11 tablet by [facility] of tablet 00:00: mouth in [place] the . Branch aspirin 81 2021-05 Yes 81mg Take 1 [facility] mg EC 0-11 tablet by [facility] of tablet 00:00: mouth in [place] the . Branch carvediloL 2021-05 Yes 6.25mg Take 1 [facility] 6.25 mg 0-11 tablet by [facility] of tablet 00:00: mouth in [place] the morning Branch and 1 tablet in the evening. Take with meals. meclizine 2021-05 Yes 25mg Take 1 [facility] 25 mg 0-11 tablet by [facility] tablet 00:00: mouth in [place] the morning Branch and 1 tablet at noon and 1 tablet in the evening. amiodarone 2021- Yes 200mg Take 1 [facility] 200 mg 0-11 tablet by [facility] of tablet 00:00: mouth in [place] the morning. Branch aspirin 81 2021-05 Yes 81mg Take 1 [facility] mg EC 0-11 tablet by [facility] of tablet 00:00: mouth in [place] the morning. Branch carvediloL 2021-05 Yes 6.25mg Take 1 [facility] 6.25 mg 0-11 tablet by [facility] of tablet 00:00: mouth in [place] the morning Branch and 1 tablet in the evening. Take with meals. meclizine 2021-05 Yes 25mg Take 1 [facility] 25 mg 0-11 tablet by [facility] of tablet 00:00: mouth in [place] the morning Branch and 1 tablet at noon and 1 tablet in the evening. amiodarone 2021-05 Yes 200mg Take 1 [facility] 200 mg 0-11 tablet by [facility] of tablet 00:00: mouth in [place] the morning. Branch aspirin 81 2021-05 Yes 81mg Take 1 [facility] mg EC 0-11 tablet by [facility] of tablet 00:00: mouth in [place] the morning. Branch carvediloL 2021-05 Yes 6.25mg Take 1 [facility] 6.25 mg 0-11 tablet by [facility] tablet 00:00: mouth in [place] the morning Branch and 1 tablet in the evening. Take with meals. meclizine 2021-05 Yes 25mg Take 1 [facility] 25 mg 0-11 tablet by [facility] of tablet 00:00: mouth in [place] the morning Branch and 1 tablet at noon and 1 tablet in the evening. amiodarone 2021-05 Yes 200mg Take 1 [facility] 200 mg 0-11 tablet by [facility] tablet 00:00: mouth in [place] the morning. Branch aspirin 2021-05 Yes 81mg Take 1 [facility] (NOEL LOW 0-11 tablet by [facility] of DOSE 00:00: mouth in [place] ASPIRIN) 81 00 the Medical mg EC morning. Branch tablet carvediloL 2021-05 Yes 6.25mg Take 1 [facility] 6.25 mg 0-11 tablet by [facility] tablet 00:00: mouth in [place] the morning Branch and 1 tablet in the evening. Take with meals. meclizine 2021-05 Yes 25mg Take 1 [facility] 25 mg 0-11 tablet by [facility] of tablet 00:00: mouth in [place] [id number] the Medical morning Branch and 1 tablet at noon and 1 tablet in the evening. amiodarone 2021-05 Yes 200mg Take 1 [facility] 200 mg 0-11 tablet by [facility] tablet 00:00: mouth in [place] 00 the Medical morning. Branch aspirin 2021-05 Yes 81mg Take 1 [facility] (NOEL LOW 0-11 tablet by [facility] of DOSE 00:00: mouth in [place] ASPIRIN) 81 00 the Medical mg EC morning. Branch tablet carvediloL 2021-05 Yes 6.25mg Take 1 [facility] 6.25 mg 0-11 tablet by [facility] tablet 00:00: mouth in [place] 00 the Medical morning Branch and 1 tablet in the evening. Take with meals. meclizine 2021-05 Yes 25mg Take 1 [facility] 25 mg 0-11 tablet by [facility] of tablet 00:00: mouth in [place] 00 the Medical morning Branch and 1 tablet at noon and 1 tablet in the evening. amiodarone 2021-05 Yes 200mg Take 1 [facility] 200 mg 0-11 tablet by [facility] tablet 00:00: mouth in [place] 00 the Medical morning. Branch aspirin 2021-05 Yes 81mg Take 1 [facility] (ONEL LOW 0-11 tablet by [facility] of DOSE 00:00: mouth in [place] ASPIRIN) 81 00 the Medical mg EC morning. Branch tablet carvediloL 2021-05 Yes 6.25mg Take 1 [facility] 6.25 mg 0-11 tablet by [facility] tablet 00:00: mouth in [place] 00 the Medical morning Branch and 1 tablet in the evening. Take with meals. meclizine 2021-05 Yes 25mg Take 1 [facility] 25 mg 0-11 tablet by [facility] of tablet 00:00: mouth in [place] 00 the Medical morning Branch and 1 tablet at noon and 1 tablet in the evening. amiodarone 2021-05 Yes 200mg Take 1 [facility] 200 mg 0-11 tablet by [facility] of tablet 00:00: mouth in [place] 00 the Medical morning. Branch aspirin 2021-05 Yes 81mg Take 1 [facility] (NOEL LOW 0-11 tablet by [facility] of DOSE 00:00: mouth in [place] ASPIRIN) 81 00 the Medical mg EC morning. Branch tablet carvediloL 2021-05 Yes 6.25mg Take 1 [facility] 6.25 mg 0-11 tablet by [facility] tablet 00:00: mouth in [place] 00 the Medical morning Branch and 1 tablet in the evening. Take with meals. meclizine 2021-05 Yes 25mg Take 1 [facility] 25 mg 0-11 tablet by [facility] tablet 00:00: mouth in [place] 00 the Medical morning Branch and 1 tablet at noon and 1 tablet in the evening. amiodarone 2021-05 Yes 200mg Take 1 [facility] 200 mg 0-11 tablet by [facility] tablet 00:00: mouth in [place] 00 the Medical morning. Branch aspirin 2021-05 Yes 81mg Take 1 [facility] (NOEL LOW 0-11 tablet by [facility] of DOSE 00:00: mouth in [place] ASPIRIN) 81 00 the Medical mg EC morning. Branch tablet carvediloL 2021-05 Yes 6.25mg Take 1 [facility] 6.25 mg 0-11 tablet by [facility] tablet 00:00: mouth in [place] 00 the Medical morning Branch and 1 tablet in the evening. Take with meals. meclizine 2021-05 Yes 25mg Take 1 [facility] 25 mg 0-11 tablet by [facility] of tablet 00:00: mouth in [place] 00 the Medical morning Branch and 1 tablet at noon and 1 tablet in the evening. amiodarone 2021-05 Yes 200mg Take 1 [facility] 200 mg 0-11 tablet by [facility] of tablet 00:00: mouth in [place] 00 the Medical morning. Branch aspirin 2021-05 Yes 81mg Take 1 [facility] (NOEL LOW 0-11 tablet by [facility] of DOSE 00:00: mouth in [place] ASPIRIN) 81 00 the Medical mg EC morning. Branch tablet carvediloL 2021-05 Yes 6.25mg Take 1 [facility] 6.25 mg 0-11 tablet by [facility] of tablet 00:00: mouth in [place] 00 the Medical morning Branch and 1 tablet in the evening. Take with meals. meclizine 2021-05 Yes 25mg Take 1 [facility] 25 mg 0-11 tablet by [facility] of tablet 00:00: mouth in [place] 00 the Medical morning Branch and 1 tablet at noon and 1 tablet in the evening. amiodarone 2021-05 Yes 200mg Take 1 [facility] 200 mg 0-11 tablet by [facility] of tablet 00:00: mouth in [place] 00 the Medical morning. Branch aspirin 2021-05 Yes 81mg Take 1 [facility] (NOEL LOW 0-11 tablet by [facility] of DOSE 00:00: mouth in [place] ASPIRIN) 81 00 the Medical mg EC morning. Branch tablet carvediloL 2021-05 Yes 6.25mg Take 1 [facility] 6.25 mg 0-11 tablet by [facility] of tablet 00:00: mouth in [place] 00 the Medical morning Branch and 1 tablet in the evening. Take with meals. meclizine 2021-05 Yes 25mg Take 1 [facility] 25 mg 0-11 tablet by [facility] of tablet 00:00: mouth in [place] 00 the Medical morning Branch and 1 tablet at noon and 1 tablet in the evening. amiodarone 2021-05 Yes 200mg Take 1 [facility] 200 mg 0-11 tablet by [facility] of tablet 00:00: mouth in [place] 00 the Medical morning. Branch aspirin 2021-05 Yes 81mg Take 1 [facility] (NOEL LOW 0-11 tablet by [facility] of DOSE 00:00: mouth in [place] ASPIRIN) 81 00 the Medical mg EC morning. Branch tablet carvediloL 2021-05 Yes 6.25mg Take 1 [facility] 6.25 mg 0-11 tablet by [facility] tablet 00:00: mouth in [place] 00 the Medical morning Branch and 1 tablet in the evening. Take with meals. meclizine 2021-05 Yes 25mg Take 1 [facility] 25 mg 0-11 tablet by [facility] of tablet 00:00: mouth in [place] 00 the Medical morning Branch and 1 tablet at noon and 1 tablet in the evening. amiodarone 2021-05 Yes 200mg Take 1 [facility] 200 mg 0-11 tablet by [facility] of tablet 00:00: mouth in [place] 00 the Medical morning. Branch aspirin 2021-05 Yes 81mg Take 1 [facility] (NOEL LOW 0-11 tablet by [facility] of DOSE 00:00: mouth in [place] ASPIRIN) 81 00 the Medical mg EC morning. Branch tablet carvediloL 2021-05 Yes 6.25mg Take 1 [facility] 6.25 mg 0-11 tablet by [facility] tablet 00:00: mouth in [place] 00 the Medical morning Branch and 1 tablet in the evening. Take with meals. meclizine 2021-05 Yes 25mg Take 1 [facility] 25 mg 0-11 tablet by [facility] of tablet 00:00: mouth in [place] 00 the Medical morning Branch and 1 tablet at noon and 1 tablet in the evening. amiodarone 2021-05 Yes 200mg Take 1 [facility] 200 mg 0-11 tablet by [facility] of tablet 00:00: mouth in [place] 00 the Medical morning. Branch aspirin 2021-05 Yes 81mg Take 1 [facility] (NOEL LOW 0-11 tablet by [facility] of DOSE 00:00: mouth in [place] ASPIRIN) 81 00 the Medical mg EC morning. Branch tablet carvediloL 2021-05 Yes 6.25mg Take 1 [facility] 6.25 mg 0-11 tablet by [facility] tablet 00:00: mouth in [place] 00 the Medical morning Branch and 1 tablet in the evening. Take with meals. meclizine 2021-05 Yes 25mg Take 1 [facility] 25 mg 0-11 tablet by [facility] of tablet 00:00: mouth in [place] 00 the Medical morning Branch and 1 tablet at noon and 1 tablet in the evening. amiodarone 2021-05 Yes 200mg Take 1 [facility] 200 mg 0-11 tablet by [facility] of tablet 00:00: mouth in [place] 00 the Medical morning. Branch aspirin 2021-05 Yes 81mg Take 1 [facility] (NOEL LOW 0-11 tablet by [facility] of DOSE 00:00: mouth in [place] ASPIRIN) 81 00 the Medical mg EC morning. Branch tablet carvediloL 2021-05 Yes 6.25mg Take 1 [facility] 6.25 mg 0-11 tablet by [facility] tablet 00:00: mouth in [place] 00 the Medical morning Branch and 1 tablet in the evening. Take with meals. meclizine 2021-05 Yes 25mg Take 1 [facility] 25 mg 0-11 tablet by [facility] tablet 00:00: mouth in [place] 00 the Medical morning Branch and 1 tablet at noon and 1 tablet in the evening. amiodarone 2021-05 Yes 200mg Take 1 [facility] 200 mg 0-11 tablet by [facility] tablet 00:00: mouth in [place] 00 the Medical morning. Branch aspirin 2021-05 Yes 81mg Take 1 [facility] (NOEL LOW 0-11 tablet by ity of DOSE 00:00: mouth in [place] ASPIRIN) 81 00 the Medical mg EC morning. Branch tablet carvediloL 2021-05 Yes 6.25mg Take 1 [facility] vers 6.25 mg 0-11 tablet by it[facility] of tablet 00:00: mouth in [place] 00 the Medical morning Branch and 1 tablet in the evening. Take with meals. meclizine 2021-05 Yes 25mg Take 1 [facility] 25 mg 0-11 tablet by [facility] of tablet 00:00: mouth in [place] 00 the Medical morning Branch and 1 tablet at noon and 1 tablet in the evening. amiodarone 2021-05 Yes 200mg Take 1 [facility] 200 mg 0-11 tablet by [facility] of tablet 00:00: mouth in [place] the Medical morning. Branch aspirin 2021-05 Yes 81mg Take 1 [facility] (NOEL LOW 0-11 tablet by ity of DOSE 00:00: mouth in [place] ASPIRIN) 81 00 the Medical mg EC morning. Branch tablet carvediloL 2021-05 Yes 6.25mg Take 1 [facility] vers 6.25 mg 0-11 tablet by [facility] of tablet 00:00: mouth in [place] 00 the Medical morning Branch and 1 tablet in the evening. Take with meals. meclizine 2021-05 Yes 25mg Take 1 [facility] 25 mg 0-11 tablet by [facility] of tablet 00:00: mouth in [place] the Medical morning Branch and 1 tablet at noon and 1 tablet in the evening. amiodarone 2021-05 Yes 200mg Take 1 [facility] 200 mg 0-11 tablet by it[facility] of tablet 00:00: mouth in [place] the Medical morning. Branch aspirin 2021-05 Yes 81mg Take 1 [facility] (NOEL LOW 0-11 tablet by ity of DOSE 00:00: mouth in [place] ASPIRIN) 81 00 the Medical mg EC morning. Branch tablet carvediloL 2021-05 Yes 6.25mg Take 1 [facility] vers 6.25 mg 0-11 tablet by [facility] of tablet 00:00: mouth in [place] the Medical morning Branch and 1 tablet in the evening. Take with meals. meclizine 2021-05 Yes 25mg Take 1 [facility] 25 mg 0-11 tablet by [facility] of tablet 00:00: mouth in [place] 00 the Medical morning Branch and 1 tablet at noon and 1 tablet in the evening. amiodarone 2021-05 Yes 200mg Take 1 [facility] 200 mg 0-11 tablet by it[facility] of tablet 00:00: mouth in [place] 00 the Medical morning. Branch aspirin 81 2021-05 Yes 81mg Take 1 [facility] mg EC 0-11 tablet by it[facility] of tablet 00:00: mouth in [place] the Medical morning. Branch carvediloL 2021-05 Yes 6.25mg Take 1 [facility] vers 6.25 mg 0-11 tablet by [facility] of tablet 00:00: mouth in [place] the Medical morning Branch and 1 tablet in the evening. Take with meals. meclizine 2021-05 Yes 25mg Take 1 [facility] 25 mg 0-11 tablet by [facility] of tablet 00:00: mouth in [place] the Medical morning Branch and 1 tablet at noon and 1 tablet in the evening. amiodarone 2021-05 Yes 200mg Take 1 [facility] 200 mg 0-11 tablet by [facility] of tablet 00:00: mouth in [place] the morning. Branch aspirin 81 2021-05 Yes 81mg Take 1 [facility] mg EC 0-11 tablet by [facility] of tablet 00:00: mouth in [place] the morning. Branch carvediloL 2021-05 Yes 6.25mg Take 1 [facility] vers 6.25 mg 0-11 tablet by [facility] of tablet 00:00: mouth in [place] the Medical morning Branch and 1 tablet in the evening. Take with meals. meclizine 2021-05 Yes 25mg Take 1 [facility] 25 mg 0-11 tablet by [facility] of tablet 00:00: mouth in [place] the morning Branch and 1 tablet at noon and 1 tablet in the evening. amiodarone 2021-05 Yes 200mg Take 1 [facility] 200 mg 0-11 tablet by [facility] of tablet 00:00: mouth in [place] the morning. Branch aspirin 81 2021-05 Yes 81mg Take 1 [facility] mg EC 0-11 tablet by [facility] of tablet 00:00: mouth in [place] the . Branch carvediloL 2021-05 Yes 6.25mg Take 1 [facility] vers 6.25 mg 0-11 tablet by [facility] of tablet 00:00: mouth in [place] the morning Branch and 1 tablet in the evening. Take with meals. meclizine 2021-05 Yes 25mg Take 1 [facility] 25 mg 0-11 tablet by [facility] of tablet 00:00: mouth in [place] the morning Branch and 1 tablet at noon and 1 tablet in the evening. amiodarone 2021- Yes 200mg Take 1 [facility] 200 mg 0-11 tablet by [facility] of tablet 00:00: mouth in [place] the morning. Branch aspirin 81 2021-05 Yes 81mg Take 1 [facility] mg EC 0-11 tablet by [facility] of tablet 00:00: mouth in [place] the . Branch carvediloL 2021-05 Yes 6.25mg Take 1 [facility] vers 6.25 mg 0-11 tablet by [facility] of tablet 00:00: mouth in [place] the Branch and 1 tablet in the evening. Take with meals. meclizine 2021-05 Yes 25mg Take 1 [facility] 25 mg 0-11 tablet by [facility] of tablet 00:00: mouth in [place] the morning Branch and 1 tablet at noon and 1 tablet in the evening. amiodarone 2021-05 Yes 200mg Take 1 [facility] 200 mg 0-11 tablet by it[facility] of tablet 00:00: mouth in [place] the . Branch aspirin 81 2021-05 Yes 81mg Take 1 [facility] rs mg EC 0-11 tablet by it[facility] of tablet 00:00: mouth in [place] the . Branch carvediloL 2021-05 Yes 6.25mg Take 1 [facility] vers 6.25 mg 0-11 tablet by [facility] of tablet 00:00: mouth in [place] the Branch and 1 tablet in the evening. Take with meals. meclizine 2021-05 Yes 25mg Take 1 [facility] 25 mg 0-11 tablet by [facility] of tablet 00:00: mouth in [place] the Branch and 1 tablet at noon and 1 tablet in the evening. amiodarone 2021-05 Yes 200mg Take 1 [facility] 200 mg 0-11 tablet by it[facility] of tablet 00:00: mouth in [place] the . Branch aspirin 81 2021-05 Yes 81mg Take 1 [facility] rs mg EC 0-11 tablet by ity of tablet 00:00: mouth in [place] the . Branch carvediloL 2021-05 Yes 6.25mg Take 1 [facility] vers 6.25 mg 0-11 tablet by it[facility] of tablet 00:00: mouth in [place] the Branch and 1 tablet in the evening. Take with meals. meclizine 2021-05 Yes 25mg Take 1 [facility] 25 mg 0-11 tablet by it[facility] of tablet 00:00: mouth in [place] the morning Branch and 1 tablet at noon and 1 tablet in the evening. amiodarone 2021-05 Yes 200mg Take 1 [facility] 200 mg 0-11 tablet by it[facility] of tablet 00:00: mouth in [place] the morning. Branch aspirin 81 2021-05 Yes 81mg Take 1 [facility] mg EC 0-11 tablet by ity of tablet 00:00: mouth in [place] the morning. Branch carvediloL 2021-05 Yes 6.25mg Take 1 [facility] vers 6.25 mg 0-11 tablet by [facility] of tablet 00:00: mouth in [place] the morning Branch and 1 tablet in the evening. Take with meals. meclizine 2021-05 Yes 25mg Take 1 [facility] 25 mg 0-11 tablet by ity of tablet 00:00: mouth in [place] the morning Branch and 1 tablet at noon and 1 tablet in the evening. amiodarone 2021-05 Yes 200mg Take 1 [facility] 200 mg 0-11 tablet by ity of tablet 00:00: mouth in [place] the morning. Branch aspirin 81 2021-05 Yes 81mg Take 1 [facility] mg EC 0-11 tablet by ity of tablet 00:00: mouth in [place] the morning. Branch carvediloL 2021-05 Yes 6.25mg Take 1 [facility] vers 6.25 mg 0-11 tablet by it[facility] of tablet 00:00: mouth in [place] the morning Branch and 1 tablet in the evening. Take with meals. meclizine 2021-05 Yes 25mg Take 1 [facility] 25 mg 0-11 tablet by it[facility] of tablet 00:00: mouth in [place] the morning Branch and 1 tablet at noon and 1 tablet in the evening. amiodarone 2021-05 Yes 200mg Take 1 [facility] 200 mg 0-11 tablet by it[facility] of tablet 00:00: mouth in [place] the morning. Branch aspirin 81 2021-05 Yes 81mg Take 1 [facility] mg EC 0-11 tablet by ity of tablet 00:00: mouth in [place] the morning. Branch carvediloL 2021-05 Yes 6.25mg Take 1 [facility] vers 6.25 mg 0-11 tablet by it[facility] of tablet 00:00: mouth in [place] the morning Branch and 1 tablet in the evening. Take with meals. meclizine 2022-1 Yes 25mg Take 1 [facility] 25 mg 0-11 tablet by ity of tablet 00:00: mouth in [place] the Medical morning Branch and 1 tablet at noon and 1 tablet in the evening. amiodarone 2021-05 Yes 200mg Take 1 [facility] 200 mg 0-11 tablet by ity of tablet 00:00: mouth in [place] the morning. Branch aspirin 81 2021-05 Yes 81mg Take 1 [facility] mg EC 0-11 tablet by ity of tablet 00:00: mouth in [place] the morning. Branch carvediloL 2021-05 Yes 6.25mg Take 1 [facility] vers 6.25 mg 0-11 tablet by [facility] of tablet 00:00: mouth in [place] the Medical morning Branch and 1 tablet in the evening. Take with meals. meclizine 2021-05 Yes 25mg Take 1 [facility] 25 mg 0-11 tablet by [facility] of tablet 00:00: mouth in [place] the Medical morning Branch and 1 tablet at noon and 1 tablet in the evening. amiodarone 2021-05 Yes 200mg Take 1 [facility] 200 mg 0-11 tablet by [facility] of tablet 00:00: mouth in [place] the morning. Branch aspirin 81 2021-05 Yes 81mg Take 1 [facility] mg EC 0-11 tablet by it[facility] of tablet 00:00: mouth in [place] the morning. Branch carvediloL 2021-05 Yes 6.25mg Take 1 [facility] vers 6.25 mg 0-11 tablet by [facility] of tablet 00:00: mouth in [place] the Medical morning Branch and 1 tablet in the evening. Take with meals. meclizine 2021-05 Yes 25mg Take 1 [facility] 25 mg 0-11 tablet by [facility] of tablet 00:00: mouth in [place] the Medical morning Branch and 1 tablet at noon and 1 tablet in the evening. amiodarone 2021-05 Yes 200mg Take 1 [facility] 200 mg 0-11 tablet by [facility] of tablet 00:00: mouth in [place] the morning. Branch aspirin 81 2021-05 Yes 81mg Take 1 [facility] mg EC 0-11 tablet by [facility] of tablet 00:00: mouth in [place] the morning. Branch carvediloL 2021-05 Yes 6.25mg Take 1 [facility] vers 6.25 mg 0-11 tablet by [facility] of tablet 00:00: mouth in [place] the Medical morning Branch and 1 tablet in the evening. Take with meals. meclizine 2021-05 Yes 25mg Take 1 [facility] 25 mg 0-11 tablet by [facility] of tablet 00:00: mouth in [place] the Medical morning Branch and 1 tablet at noon and 1 tablet in the evening. amiodarone 2021-05 Yes 200mg Take 1 [facility] 200 mg 0-11 tablet by ity of tablet 00:00: mouth in [place] the morning. Branch aspirin 81 2021-05 Yes 81mg Take 1 [facility] mg EC 0-11 tablet by ity of tablet 00:00: mouth in [place] the morning. Branch carvediloL 2021-05 Yes 6.25mg Take 1 [facility] vers 6.25 mg 0-11 tablet by [facility] of tablet 00:00: mouth in [place] the Medical morning Branch and 1 tablet in the evening. Take with meals. meclizine 2021-05 Yes 25mg Take 1 [facility] 25 mg 0-11 tablet by it[facility] of tablet 00:00: mouth in [place] the morning Branch and 1 tablet at noon and 1 tablet in the evening. amiodarone 2021-05 Yes 200mg Take 1 [facility] 200 mg 0-11 tablet by ity of tablet 00:00: mouth in [place] the morning. Branch aspirin 81 2021-05 Yes 81mg Take 1 [facility] rs mg EC 0-11 tablet by ity of tablet 00:00: mouth in [place] the morning. Branch carvediloL 2021-05 Yes 6.25mg Take 1 [facility] vers 6.25 mg 0-11 tablet by it[facility] of tablet 00:00: mouth in [place] the Medical morning Branch and 1 tablet in the evening. Take with meals. meclizine 2021-05 Yes 25mg Take 1 [facility] 25 mg 0-11 tablet by ity of tablet 00:00: mouth in [place] the Medical morning Branch and 1 tablet at noon and 1 tablet in the evening. amiodarone 2021-05 Yes 200mg Take 1 [facility] 200 mg 0-11 tablet by ity of tablet 00:00: mouth in [place] the morning. Branch aspirin 81 2021-05 Yes 81mg Take 1 [facility] rs mg EC 0-11 tablet by ity of tablet 00:00: mouth in [place] the . Branch carvediloL 2021-05 Yes 6.25mg Take 1 [facility] vers 6.25 mg 0-11 tablet by ity of tablet 00:00: mouth in [place] the morning Branch and 1 tablet in the evening. Take with meals. meclizine 2021-05 Yes 25mg Take 1 [facility] 25 mg 0-11 tablet by ity of tablet 00:00: mouth in [place] the morning Branch and 1 tablet at noon and 1 tablet in the evening. amiodarone 2021-05 Yes 200mg Take 1 [facility] 200 mg 0-11 tablet by ity of tablet 00:00: mouth in [place] the . Branch aspirin 81 2021-05 Yes 81mg Take 1 [facility] mg EC 0-11 tablet by ity of tablet 00:00: mouth in [place] the . Branch carvediloL 2021-05 Yes 6.25mg Take 1 [facility] vers 6.25 mg 0-11 tablet by ity of tablet 00:00: mouth in [place] the morning Branch and 1 tablet in the evening. Take with meals. meclizine 2021-05 Yes 25mg Take 1 [facility] 25 mg 0-11 tablet by ity of tablet 00:00: mouth in [place] the morning Branch and 1 tablet at noon and 1 tablet in the evening. amiodarone 2021-05 Yes 200mg Take 1 [facility] 200 mg 0-11 tablet by it[facility] of tablet 00:00: mouth in [place] the . Branch bumetanide 0 Yes 1mg Take 1 [facility] 1 mg tablet 7-19 tablet by it[facility] of 00:00: mouth in [place] the Medical morning Branch and 1 tablet in the evening. bumetanide 2021-0 Yes 1mg Take 1 [facility] 1 mg tablet 7-19 tablet by ity of 00:00: mouth in [place] the morning Branch and 1 tablet in the evening. bumetanide 2021-0 Yes 1mg Take 1 [facility] 1 mg tablet 7-19 tablet by ity of 00:00: mouth in [place] the Medical morning Branch and 1 tablet in the evening. bumetanide 2022-0 Yes 1mg Take 1 [facility] 1 mg tablet 7-19 tablet by ity of 00:00: mouth in [place] 00 the Medical morning Branch and 1 tablet in the evening. bumetanide 2022-0 Yes 1mg Take 1 [facility] 1 mg tablet 7-19 tablet by ity of 00:00: mouth in [place] 00 the Medical morning Branch and 1 tablet in the evening. bumetanide 2022-0 Yes 1mg Take 1 [facility] 1 mg tablet 7-19 tablet by ity of 00:00: mouth in [place] 00 the Medical morning Branch and 1 tablet in the evening. bumetanide 2022-0 Yes 1mg Take 1 [facility] 1 mg tablet 7-19 tablet by ity of 00:00: mouth in [place] 00 the Medical morning Branch and 1 tablet in the evening. bumetanide 2022-0 Yes 1mg Take 1 [facility] 1 mg tablet 7-19 tablet by ity of 00:00: mouth in [place] 00 the Medical morning Branch and 1 tablet in the evening. bumetanide 2022-0 Yes 1mg Take 1 [facility] 1 mg tablet 7-19 tablet by ity of 00:00: mouth in [place] [address] the Medical morning Branch and 1 tablet in the evening. bumetanide 2022-0 Yes 1mg Take 1 [facility] rs 1 mg tablet 7-19 tablet by ity of 00:00: mouth in [place] 00 the Medical morning Branch and 1 tablet in the evening. bumetanide 2022-0 Yes 1mg Take 1 [facility] 1 mg tablet 7-19 tablet by ity of 00:00: mouth in [place] 00 the Medical morning Branch and 1 tablet in the evening. bumetanide 2022-0 Yes 1mg Take 1 [facility] 1 mg tablet 7-19 tablet by ity of 00:00: mouth in [place] 00 the Medical morning Branch and 1 tablet in the evening. bumetanide 2022-0 Yes 1mg Take 1 [facility] 1 mg tablet 7-19 tablet by ity of 00:00: mouth in [place] [address] the Medical morning Branch and 1 tablet in the evening. bumetanide 2022-0 Yes 1mg Take 1 [facility] 1 mg tablet 7-19 tablet by ity of 00:00: mouth in [place] [address] the Medical morning Branch and 1 tablet in the evening. bumetanide 2022-0 Yes 1mg Take 1 [facility] 1 mg tablet 7-19 tablet by ity of 00:00: mouth in [place] 00 the Medical morning Branch and 1 tablet in the evening. bumetanide 2-0 Yes 1mg Take 1 [facility] 1 mg tablet 7-19 tablet by ity of 00:00: mouth in [place] 00 the Medical morning Branch and 1 tablet in the evening. bumetanide 2-0 Yes 1mg Take 1 [facility] 1 mg tablet 7-19 tablet by ity of 00:00: mouth in [place] 00 the Medical morning Branch and 1 tablet in the evening. bumetanide 2-0 Yes 1mg Take 1 [facility] 1 mg tablet 7-19 tablet by ity of 00:00: mouth in [place] 00 the Medical morning Branch and 1 tablet in the evening. bumetanide 2-0 Yes 1mg Take 1 [facility] 1 mg tablet 7-19 tablet by ity of 00:00: mouth in [place] 00 the Medical morning Branch and 1 tablet in the evening. bumetanide 2021-0 Yes 1mg Take 1 [facility] 1 mg tablet 7-19 tablet by ity of 00:00: mouth in [place] 00 the Medical morning Branch and 1 tablet in the evening. bumetanide 2-0 2023- No 1mg Take 1 [facility] 1 mg tablet 7-19 -12 tablet by it y of 00:00: 00:00 mouth in [place] 00 :00 the Medical morning Branch and 1 tablet in the evening. Mupirocin 2 Mupirocin 2 2021-0 2022- No 1{appli BID Mupirocin % % 12-04 07-24 cation} 2 % 00:00: 00:00 00 :00 glimepiride 2022-0 Yes 2mg Take 2 mg U nivers 2 mg tablet 4-08 by mouth ity of 16:21: daily with [place] [address] breakfast. Medical Branch glimepiride 2022-0 Yes 2mg Take 2 mg [facility] nivers 2 mg tablet 4-08 by mouth ity of 16:21: daily with [place] [address] breakfast. Medical Branch glimepiride 2022-0 Yes 2mg Take 2 mg U nivers 2 mg tablet 4-08 by mouth ity of 16:21: daily with [place] [address] breakfast. Medical Branch glimepiride 2-0 Yes 2mg Take 2 mg U nivers 2 mg tablet 4-08 by mouth ity of 16:21: daily with [place] [address] breakfast. Medical Branch glimepiride 2-0 Yes 2mg Take 2 mg U nivers 2 mg tablet 4-08 by mouth ity of 16:21: daily with [place] [address] breakfast. Medical Branch glimepiride 2-0 Yes 2mg Take 2 mg [facility] nivers 2 mg tablet 4-08 by mouth ity of 16:21: daily with [place] [address] breakfast. Medical Branch glimepiride 2-0 Yes 2mg Take 2 mg U n[facility] 2 mg tablet 4-08 by mouth ity of 16:21: daily with [place] [address] breakfast. Medical Branch glimepiride 2-0 Yes 2mg Take 2 mg U nivers 2 mg tablet 4-08 by mouth ity of 16:21: daily with [place] [address] breakfast. Medical Branch glimepiride 2021-0 Yes 2mg Take 2 mg U nivers 2 mg tablet 4-08 by mouth ity of 16:21: daily with [place] [address] breakfast. Medical Branch glimepiride 2-0 Yes 2mg Take 2 mg U nivers 2 mg tablet 4-08 by mouth ity of 16:21: daily with [place] [address] breakfast. Medical Branch glimepiride 2021-0 Yes 2mg Take 2 mg U nivers 2 mg tablet 4-08 by mouth ity of 16:21: daily with [place] [address] breakfast. Medical Branch glimepiride 2021-0 Yes 2mg Take 2 mg U nivers 2 mg tablet 4-08 by mouth ity of 16:21: daily with [place] [address] breakfast. Medical Branch glimepiride 2-0 Yes 2mg Take 2 mg U nivers 2 mg tablet 4-08 by mouth ity of 16:21: daily with [place] [address] breakfast. Medical Branch glimepiride 2-0 Yes 2mg Take 2 mg U nivers 2 mg tablet 4-08 by mouth ity of 16:21: daily with [place] [address] breakfast. Medical Branch glimepiride 2-0 Yes 2mg Take 2 mg U nivers 2 mg tablet 4-08 by mouth ity of 16:21: daily with [place] [address] breakfast. Medical Branch glimepiride 2022-0 Yes 2mg Take 2 mg U nivers 2 mg tablet 4-08 by mouth ity of 16:21: daily with [place] [address] breakfast. [facility] Branch glimepiride 0 Yes 2mg Take 2 mg U nivers 2 mg tablet 4-08 by mouth ity of 16:21: daily with [place] [address] breakfast. [facility] Branch glimepiride 0 Yes 2mg Take 2 mg U nivers 2 mg tablet 4-08 by mouth ity of 16:21: daily with [place] [address] breakfast. [facility] Branch glimepiride 0 Yes 2mg Take 2 mg U nivers 2 mg tablet 4-08 by mouth ity of 16:21: daily with [place] [address] breakfast. [facility] Branch glimepiride 0 Yes 2mg Take 2 mg U nivers 2 mg tablet 4-08 by mouth ity of 16:21: daily with [place] [address] breakfast. [facility] Branch glimepiride 0 Yes 2mg Take 2 mg U nivers 2 mg tablet 4-08 by mouth ity of 16:21: daily with [place] [address] breakfast. [facility] Branch glimepiride 0 Yes 2mg Take 2 mg U nivers 2 mg tablet 4-08 by mouth ity of 16:21: daily with [place] [address] breakfast. [facility] Branch glimepiride Yes 2mg Take 2 mg U nivers 2 mg tablet 4-08 by mouth ity of 16:21: daily with [place] [address] breakfast. [facility] glimepiride Yes 2mg Take 2 mg U nivers 2 mg tablet 4-08 by mouth ity of 16:21: daily with [place] [address] breakfast. [facility] Branch spironolact Yes [id number] 12.5mg Take 0.5 [facility] one 25 mg 4-08 tablets by ity of tablet 00:00: mouth [place] 00 daily. Medical Branch bumetanide 0 Yes [id number] 1mg Take 1 [facility] 1 mg tablet 4-08 tablet by ity of 00:00: mouth [place] 00 daily. [facility] empaglifloz Yes [id number] 10mg Take 1 [facility] in 10 mg 4-08 tablet by ity of 00:00: mouth [place] 00 daily. [facility] Branch spironolact 0 Yes [id number] 12.5mg Take 0.5 [facility] one 25 mg 4-08 tablets by ity of tablet 00:00: mouth [place] 00 daily. Medical Branch empaglifloz 2-0 Yes [id number] 10mg Take 1 [facility] in 10 mg 4-08 tablet by ity of 00:00: mouth [place] 00 daily. Medical Branch spironolact 2-0 Yes [id number] 12.5mg Take 0.5 [facility] one 25 mg 4-08 tablets by ity of tablet 00:00: mouth [place] 00 daily. Medical Branch empaglifloz 2021-0 Yes [id number] 10mg Take 1 [facility] in 10 mg 4-08 tablet by ity of 00:00: mouth [place] 00 daily. Medical Branch spironolact 2021-0 Yes [id number] 12.5mg Take 0.5 [facility] one 25 mg 4-08 tablets by ity of tablet 00:00: mouth [place] 00 daily. Medical Branch empaglifloz 2021-0 Yes [id number] 10mg Take 1 [facility] in 10 mg 4-08 tablet by ity of 00:00: mouth [place] 00 daily. Medical Branch spironolact 2021-0 Yes [id number] 12.5mg Take 0.5 [facility] one 25 mg 4-08 tablets by ity of tablet 00:00: mouth [place] 00 daily. Medical Branch empaglifloz 2021-0 Yes [id number] 10mg Take 1 [facility] in 10 mg 4-08 tablet by ity of 00:00: mouth [place] 00 daily. Medical Branch spironolact 2021-0 Yes [id number] 12.5mg Take 0.5 [facility] one 25 mg 4-08 tablets by ity of tablet 00:00: mouth [place] 00 daily. Medical Branch empaglifloz 2-0 Yes [id number] 10mg Take 1 [facility] in 10 mg 4-08 tablet by ity of 00:00: mouth [place] 00 daily. Medical Branch spironolact 2-0 Yes [id number] 12.5mg Take 0.5 [facility] one 25 mg 4-08 tablets by ity of tablet 00:00: mouth [place] 00 daily. Medical Branch empaglifloz 2-0 Yes [id number] 10mg Take 1 [facility] in 10 mg 4-08 tablet by ity of 00:00: mouth [place] 00 daily. Medical Branch spironolact 2-0 Yes [id number] 12.5mg Take 0.5 [facility] one 25 mg 4-08 tablets by ity of tablet 00:00: mouth [place] 00 daily. [facility] Branch empaglifloz 2-0 Yes [id number] 10mg Take 1 [facility] in 10 mg 4-08 tablet by ity of 00:00: mouth [place] 00 daily. [facility] Branch spironolact 2-0 Yes [id number] 12.5mg Take 0.5 [facility] one 25 mg 4-08 tablets by ity of tablet 00:00: mouth [place] 00 daily. [facility] Branch empaglifloz 2-0 Yes [id number] 10mg Take 1 [facility] in 10 mg 4-08 tablet by ity of 00:00: mouth [place] 00 daily. [facility] Branch spironolact 2021-0 Yes [id number] 12.5mg Take 0.5 [facility] one 25 mg 4-08 tablets by ity of tablet 00:00: mouth [place] 00 daily. [facility] Branch empaglifloz 2021-0 Yes [id number] 10mg Take 1 [facility] in 10 mg 4-08 tablet by ity of 00:00: mouth [place] 00 daily. [facility] Branch spironolact 2021-0 Yes [id number] 12.5mg Take 0.5 [facility] one 25 mg 4-08 tablets by ity of tablet 00:00: mouth [place] 00 daily. [facility] Branch empaglifloz 2021-0 Yes [id number] 10mg Take 1 [facility] in 10 mg 4-08 tablet by ity of 00:00: mouth [place] 00 daily. [facility] Branch spironolact 2-0 Yes [id number] 12.5mg Take 0.5 [facility] one 25 mg 4-08 tablets by ity of tablet 00:00: mouth [place] 00 daily. [facility] Branch empaglifloz 2-0 Yes [id number] 10mg Take 1 [facility] in 10 mg 4-08 tablet by ity of 00:00: mouth [place] 00 daily. [facility] Branch spironolact 2-0 Yes [id number] 12.5mg Take 0.5 [facility] one 25 mg 4-08 tablets by ity of tablet 00:00: mouth [place] 00 daily. [facility] Branch empaglifloz 2-0 Yes [id number] 10mg Take 1 [facility] in 10 mg 4-08 tablet by ity of 00:00: mouth [place] 00 daily. Medical Branch spironolact 2-0 Yes [id number] 12.5mg Take 0.5 [facility] one 25 mg 4-08 tablets by ity of tablet 00:00: mouth [place] 00 daily. Medical Branch empaglifloz 2-0 Yes [id number] 10mg Take 1 [facility] in 10 mg 4-08 tablet by ity of 00:00: mouth [place] 00 daily. Medical Branch spironolact 2-0 Yes [id number] 12.5mg Take 0.5 [facility] one 25 mg 4-08 tablets by ity of tablet 00:00: mouth [place] 00 daily. Medical Branch empaglifloz 2-0 Yes [id number] 10mg Take 1 [facility] in 10 mg 4-08 tablet by ity of 00:00: mouth [place] 00 daily. [facility] Branch spironolact 2-0 Yes [id number] 12.5mg Take 0.5 [facility] one 25 mg 4-08 tablets by ity of tablet 00:00: mouth [place] 00 daily. Medical Branch empaglifloz 2-0 Yes [id number] 10mg Take 1 [facility] in 10 mg 4-08 tablet by ity of 00:00: mouth [place] 00 daily. Medical Branch spironolact 2-0 Yes [id number] 12.5mg Take 0.5 [facility] one 25 mg 4-08 tablets by ity of tablet 00:00: mouth [place] 00 daily. Medical Branch empaglifloz 2-0 Yes [id number] 10mg Take 1 [facility] in 10 mg 4-08 tablet by ity of 00:00: mouth [place] 00 daily. Medical Branch spironolact 2-0 Yes [id number] 12.5mg Take 0.5 [facility] one 25 mg 4-08 tablets by ity of tablet 00:00: mouth [place] 00 daily. Medical Branch empaglifloz 2-0 Yes [id number] 10mg Take 1 [facility] in 10 mg 4-08 tablet by ity of 00:00: mouth [place] 00 daily. [facility] spironolact 2-0 Yes [id number] 12.5mg Take 0.5 Univers one 25 mg 4-08 tablets by ity of tablet 00:00: mouth [place] 00 daily. [facility] Branch empaglifloz 2-0 Yes [id number] 10mg Take 1 [facility] in 10 mg 4-08 tablet by ity of 00:00: mouth [place] 00 daily. Medical Branch spironolact 2-0 Yes [id number] 12.5mg Take 0.5 [facility] one 25 mg 4-08 tablets by ity of tablet 00:00: mouth [place] 00 daily. Medical Branch empaglifloz 2-0 Yes [id number] 10mg Take 1 [facility] in 10 mg 4-08 tablet by ity of 00:00: mouth [place] 00 daily. Medical Branch spironolact 2-0 Yes [id number] 12.5mg Take 0.5 [facility] one 25 mg 4-08 tablets by ity of tablet 00:00: mouth [place] 00 daily. [facility] empaglifloz 2-0 Yes [id number] 10mg Take 1 [facility] in 10 mg 4-08 tablet by ity of 00:00: mouth [place] 00 daily. [facility] spironolact 2021-0 Yes [id number] 12.5mg Take 0.5 [facility] one 25 mg 4-08 tablets by ity of tablet 00:00: mouth [place] 00 daily. Medical Branch empaglifloz 2-0 Yes [id number] 10mg Take 1 [facility] in 10 mg 4-08 tablet by ity of 00:00: mouth [place] 00 daily. [facility] spironolact 2021-0 Yes [id number] 12.5mg Take 0.5 [facility] one 25 mg 4-08 tablets by ity of tablet 00:00: mouth [place] 00 daily. [facility] empaglifloz 2-0 Yes [id number] 10mg Take 1 [facility] in 10 mg 4-08 tablet by ity of 00:00: mouth [place] 00 daily. Medical Branch spironolact 2-0 Yes [id number] 12.5mg Take 0.5 [facility] one 25 mg 4-08 tablets by ity of tablet 00:00: mouth [place] 00 daily. Medical Branch empaglifloz 2-0 Yes [id number] 10mg Take 1 [facility] in 10 mg 4-08 tablet by ity of 00:00: mouth [place] 00 daily. [facility] spironolact 2-0 Yes [id number] 12.5mg Take 0.5 [facility] one 25 mg 4-08 tablets by ity of tablet 00:00: mouth [place] 00 daily. Medical Branch empaglifloz 2-0 Yes [id number] 10mg Take 1 [facility] in 10 mg 4-08 tablet by ity of 00:00: mouth [place] 00 daily. [facility] Branch spironolact 2021-0 Yes [id number] 12.5mg Take 0.5 [facility] one 25 mg 4-08 tablets by ity of tablet 00:00: mouth [place] 00 daily. [facility] empaglifloz 2-0 Yes [id number] 10mg Take 1 [facility] in 10 mg 4-08 tablet by ity of 00:00: mouth [place] 00 daily. [facility] Branch spironolact 2021-0 Yes [id number] 12.5mg Take 0.5 [facility] one 25 mg 4-08 tablets by ity of tablet 00:00: mouth [place] 00 daily. [facility] empaglifloz 2021-0 Yes [id number] 10mg Take 1 [facility] in 10 mg 4-08 tablet by ity of 00:00: mouth [place] 00 daily. [facility] spironolact 2021-0 Yes [id number] 12.5mg Take 0.5 [facility] one 25 mg 4-08 tablets by ity of tablet 00:00: mouth [place] 00 daily. [facility] empaglifloz 2021-0 Yes [id number] 10mg Take 1 [facility] in 10 mg 4-08 tablet by ity of 00:00: mouth [place] 00 daily. [facility] spironolact 2021-0 Yes [id number] 12.5mg Take 0.5 [facility] one 25 mg 4-08 tablets by ity of tablet 00:00: mouth [place] 00 daily. [facility] empaglifloz 2-0 Yes [id number] 10mg Take 1 [facility] in 10 mg 4-08 tablet by ity of 00:00: mouth [place] 00 daily. [facility] spironolact 2-0 Yes [id number] 12.5mg Take 0.5 [facility] one 25 mg 4-08 tablets by ity of tablet 00:00: mouth [place] 00 daily. [facility] empaglifloz 2-0 Yes [id number] 10mg Take 1 [facility] in 10 mg 4-08 tablet by ity of 00:00: mouth [place] 00 daily. Medical Branch spironolact 2-0 Yes [id number] 12.5mg Take 0.5 [facility] one 25 mg 4-08 tablets by ity of tablet 00:00: mouth [place] 00 daily. Medical Branch empaglifloz 0 Yes [id number] 10mg Take 1 [facility] in 10 mg 4-08 tablet by ity of 00:00: mouth [place] 00 daily. Medical Branch spironolact 0 Yes [id number] 12.5mg Take 0.5 [facility] one 25 mg 4-08 tablets by ity of tablet 00:00: mouth [place] 00 daily. Medical Branch empaglifloz 0 Yes [id number] 10mg Take 1 [facility] in 10 mg 4-08 tablet by ity of 00:00: mouth [place] 00 daily. Medical Branch empaglifloz 0 Yes [id number] 10mg Take 1 [facility] in 10 mg 4-08 tablet by ity of 00:00: mouth [place] 00 daily. Medical Branch empaglifloz 0 Yes [id number] 10mg Take 1 [facility] in 10 mg 4-08 tablet by ity of 00:00: mouth [place] 00 daily. Medical Branch empaglifloz 0 2022- No [id number] 10mg Take 1 [facility] in 10 mg -12 20-03 tablet by ity o f 00:00: 00:00 mouth [place] 00 :00 daily. Medical Branch empaglifloz 0 2022- No [id number] 10mg Take 1 [facility] in 10 mg -12 20-03 tablet by ity o f 00:00: 00:00 mouth [place] 00 :00 daily. [facility] empaglifloz 0 2022- No [id number] 10mg Take 1 [facility] in 10 mg -12 20-03 tablet by ity o f 00:00: 00:00 mouth [place] 00 :00 daily. Medical Branch spironolact 0 3- No [id number] 12.5mg Take 0.5 [facility] one 25 mg 08-24- tablets by ity of tablet 00:00: 00:00 mouth [place] 00 :00 daily. Medical Branch bumetanide 2021-2021- No [id number] 1mg Take 1 Univers 1 mg tablet [...] by ity of tablet 14:05: mouth 2 [place] 56 (two) Medical times Branch daily with meals. NOEL 2021-0 Yes Take by Univers ASPIRIN 2-01 mouth. ity of ORAL 14:05: [place] [id number] Medical Branch metformin 2-0 Yes 500mg Take [...] by ity of tablet 14:05: mouth 2 [place] [address] (two) Medical times Branch daily with meals. NOEL 2021-0 Yes Take by Univers ASPIRIN 2-01 mouth. ity of ORAL 14:05: [place] [address] Medical Branch metformin 2-0 Yes 500mg Take [...] by ity of tablet 14:05: mouth 2 [place] [address] (two) Medical times Branch daily with meals. NOEL 2-0 Yes Take by Univers ASPIRIN 2-01 mouth. ity of ORAL 14:05: [place] [address] Medical Branch metformin 2-0 Yes 500mg Take [...] ASPIRIN 2-01 mouth. ity of ORAL 14:05: [place] [address] Medical Branch metformin 2021-0 Yes 500mg Take [...] by ity of tablet 14:05: mouth 2 [place] 56 (two) Medical times Branch daily with meals. NOEL 2021-0 Yes Take by Univers ASPIRIN 2-01 mouth. ity of ORAL 14:05: [place] [address] Medical Branch metformin 2021-0 Yes 500mg Take [...] ASPIRIN 2-01 mouth. ity of ORAL 14:05: [place] [address] Medical Branch metformin 2-0 Yes 500mg Take [...] by ity of tablet 14:05: mouth 2 [place] [address] (two) Medical times Branch daily with meals. NOEL 2021-0 Yes Take by Univers ASPIRIN 2-01 mouth. ity of ORAL 14:05: [place] [address] Medical Branch metformin 2021-0 Yes 500mg Take 500 Uni vers HCl 2-01 mg by ity of (METFORMIN 14:05: [place] (two) Medical times Branch daily with meals. sacubitriL- 2-0 Yes 1{tbl} Take 1 Un winter valsartan 2-01 tablet by ity o f 49-51 mg 14:05: mouth 2 [place] tablet 56 (two) Medical times Branch daily. carvediloL 2-0 Yes 12.5mg Take 12.5 Univers 12.5 mg 2-01 mg by ity of tablet 14:05: mouth 2 [place] 56 (two) Medical times Branch daily with meals. NOEL 2021-0 Yes Take by Univers ASPIRIN 2-01 mouth. ity of ORAL 14:05: [place] [address] Medical Branch metformin 2-0 Yes 500mg Take [...] by ity of tablet 14:05: mouth 2 [place] 56 (two) Medical times Branch daily with meals. NOEL 2-0 Yes Take by Univers ASPIRIN 2-01 mouth. ity of ORAL 14:05: [place] [address] Medical Branch metformin 2-0 Yes 500mg Take [...] ASPIRIN 2-01 mouth. ity of ORAL 14:05: [place] [address] Medical Branch metformin 2-0 Yes 500mg Take [...] tab, PO, l Tablet 18:45: Bedtime, # Saavna nn [Zanaflex] 00 30 tab, 3 Refill(s), Pharmacy: [facility], 154.94, cm, 03/22/21 13:32:00 CDT, Height, 119.545, kg, 03/22/21 13:32:00 CDT, Weight tizanidine 2020-05 Yes 4 mg = 1 Mem oria 4 MG Oral 1-04 tab, PO, l Tablet 18:45: Bedtime, # Savana nn [Zanaflex] 00 30 tab, 3 Refill(s), Pharmacy: [facility], 154.94, cm, 03/22/21 13:32:00 CDT, Height, 119.545, kg, 03/22/21 13:32:00 CDT, Weight tizanidine 2020-05 Yes 4 mg = 1 Mem oria 4 MG Oral 1-04 tab, PO, l Tablet 18:45: Bedtime, # [place] nn [Zanaflex] 00 30 tab, 3 Refill(s), Pharmacy: [facility], 154.94, cm, 03/22/21 13:32:00 CDT, Height, 119.545, kg, 03/22/21 13:32:00 CDT, Weight tizanidine 2020-05 Yes 4 mg = 1 Mem oria 4 MG Oral 1-04 tab, PO, l Tablet 18:45: Bedtime, # [place] nn [Zanaflex] 00 30 tab, 3 Refill(s), Pharmacy: [facility], 154.94, cm, 03/22/21 13:32:00 CDT, Height, 119.545, kg, 03/22/21 13:32:00 CDT, Weight tizanidine 2020-05 Yes 4 mg = 1 Mem oria 4 MG Oral 1-04 tab, PO, l Tablet 18:45: Bedtime, # [place] nn [Zanaflex] 00 30 tab, 3 Refill(s), Pharmacy: [facility], 154.94, cm, 03/22/21 13:32:00 CDT, Height, 119.545, kg, 03/22/21 13:32:00 CDT, Weight tizanidine 2020-05 Yes 4 mg = 1 Mem oria 4 MG Oral 1-04 tab, PO, l Tablet 18:45: Bedtime, # [place] nn [Zanaflex] 00 30 tab, 3 Refill(s), Pharmacy: [facility], 154.94, cm, 03/22/21 13:32:00 CDT, Height, 119.545, kg, 03/22/21 13:32:00 CDT, Weight tizanidine 2020-05 Yes 4 mg = 1 Mem oria 4 MG Oral 1-04 tab, PO, l Tablet 18:45: Bedtime, # [place] nn [Zanaflex] 00 30 tab, 3 Refill(s), Pharmacy: [facility], 154.94, cm, 03/22/21 13:32:00 CDT, Height, 119.545, kg, 03/22/21 13:32:00 CDT, Weight tizanidine 2020-05 Yes 4 mg = 1 Mem oria 4 MG Oral 1-04 tab, PO, l Tablet 18:45: Bedtime, # [place] nn [Zanaflex] 00 30 tab, 3 Refill(s), Pharmacy: [facility], 154.94, cm, 03/22/21 13:32:00 CDT, Height, 119.545, kg, 03/22/21 13:32:00 CDT, Weight tizanidine 2020-05 Yes 4 mg = 1 Mem oria 4 MG Oral 1-04 tab, PO, l Tablet 18:45: Bedtime, # [place] nn [Zanaflex] 00 30 tab, 3 Refill(s), Pharmacy: [facility], 154.94, cm, 03/22/21 13:32:00 CDT, Height, 119.545, kg, 03/22/21 13:32:00 CDT, Weight tizanidine 2020- Yes 4 mg = 1 Mem oria 4 MG Oral 1-04 tab, PO, l Tablet 18:45: Bedtime, # [place] nn [Zanaflex] 00 30 tab, 3 Refill(s), Pharmacy: [facility], 154.94, cm, 03/22/21 13:32:00 CDT, Height, 119.545, kg, 03/22/21 13:32:00 CDT, Weight tizanidine 2020- Yes 4 mg = 1 Mem oria 4 MG Oral 1-04 tab, PO, l Tablet 18:45: Bedtime, # [place] nn [Zanaflex] 00 30 tab, 3 Refill(s), Pharmacy: [facility], 154.94, cm, 03/22/21 13:32:00 CDT, Height, 119.545, kg, 03/22/21 13:32:00 CDT, Weight tizanidine 2020- Yes 4 mg = 1 Mem oria 4 MG Oral 1-04 tab, PO, l Tablet 18:45: Bedtime, # [place] nn [Zanaflex] 00 30 tab, 3 Refill(s), Pharmacy: [facility], 154.94, cm, 03/22/21 13:32:00 CDT, Height, 119.545, kg, 03/22/21 13:32:00 CDT, Weight tizanidine 2020- Yes 4 mg = 1 Mem oria 4 MG Oral 1-04 tab, PO, l Tablet 18:45: Bedtime, # [place] nn [Zanaflex] 00 30 tab, 3 Refill(s), Pharmacy: [facility], 154.94, cm, 03/22/21 13:32:00 CDT, Height, 119.545, kg, 03/22/21 13:32:00 CDT, Weight tizanidine 2020- Yes 4 mg = 1 Mem oria 4 MG Oral 1-04 tab, PO, l Tablet 18:45: Bedtime, # [place] nn [Zanaflex] 00 30 tab, 3 Refill(s), Pharmacy: [facility], 154.94, cm, 03/22/21 13:32:00 CDT, Height, 119.545, kg, 03/22/21 13:32:00 CDT, Weight tizanidine 2020-05 Yes 4 mg = 1 Mem oria 4 MG Oral 1-04 tab, PO, l Tablet 18:45: Bedtime, # [place] nn [Zanaflex] 00 30 tab, 3 Refill(s), Pharmacy: [facility], 154.94, cm, 03/22/21 13:32:00 CDT, Height, 119.545, kg, 03/22/21 13:32:00 CDT, Weight tizanidine 2020-05 Yes 4 mg = 1 Mem oria 4 MG Oral 1-04 tab, PO, l Tablet 18:45: Bedtime, # [place] nn [Zanaflex] 00 30 tab, 3 Refill(s), Pharmacy: [facility], 154.94, cm, 03/22/21 13:32:00 CDT, Height, 119.545, kg, 03/22/21 13:32:00 CDT, Weight Aspirin 2020-05 Yes 0 Memoria 0-06 Refill(s) l 19:55: [place]asi Aspirin 2020-05 Yes 0 Memoria 0-06 Refill(s) l 19:55: [place] Aspirin 2020-05 Yes 0 Memoria 0-06 Refill(s) l 19:55: [place] Aspirin 2020-05 Yes 0 Memoria 0-06 Refill(s) l 19:55: [place] Aspirin 2020-05 Yes 0 Memoria 0-06 Refill(s) l 19:55: [place] Aspirin 2020-05 Yes 0 Memoria 0-06 Refill(s) l 19:55: [place] Aspirin 2020-05 Yes 0 Memoria 0-06 Refill(s) l 19:55: [place] Aspirin 2020-05 Yes 0 Memoria 0-06 Refill(s) l 19:55: [place] Aspirin 2020-05 Yes 0 Memoria 0-06 Refill(s) l 19:55: [place] Aspirin 2020-05 Yes 0 Memoria 0-06 Refill(s) l 19:55: [place] Aspirin 2020-05 Yes 0 Memoria 0-06 Refill(s) l 19:55: [place] Aspirin 2020-05 Yes 0 Memoria 0-06 Refill(s) l 19:55: [place] Aspirin 2020-05 Yes 0 Memoria 0-06 Refill(s) l 19:55: [place] Aspirin 2020-05 Yes 0 Memoria 0-06 Refill(s) l 19:55: [place] Aspirin 2020-05 Yes 0 Memoria 0-06 Refill(s) l 19:55: [place] Aspirin 2020-05 Yes 0 Memoria 0-06 Refill(s) l 19:55: [place] Potassium 2020-05 Yes 0 Memoria Chloride 0-06 [...] l oral tablet 19:54: Q12H, # 60 [place] 00 tab, 0 Refill(s) Potassium 2020-05 Yes [...] l oral tablet 19:54: Q12H, # 60 [place] 00 tab, 0 Refill(s) METFORMIN 2020-05 Yes METFORMIN Mem oria HYDROCHLORI 0-06 HYDROCHLOR l DE 500 MG 19:54: FABIEN 500 MG [place] TABS 00 TABS, Refill(s) 0 carvedilol 2020-05 Yes 6.25 mg = Me moria 6.25 mg 0-06 1 tab, PO, l oral tablet 19:54: Q12H, # 60 [place] 00 tab, 0 Refill(s) Potassium 2020-05 Yes [...] l oral tablet 19:54: Q12H, # 60 [place] 00 tab, 0 Refill(s) Potassium 2020-05 Yes 0 Memoria Chloride 0-06 Refill(s) l ([place]-[facility]lor-C 19:54: [place] n on M20) 20 00 mEq oral tablet, extended release METFORMIN 2020-05 Yes METFORMIN Mem oria HYDROCHLORI 0-06 HYDROCHLOR l DE 500 MG 19:54: FABIEN 500 MG [place] TABS 00 TABS, Refill(s) 0 carvedilol 2020-05 Yes 6.25 mg = Me moria 6.25 mg 0-06 1 tab, PO, l oral tablet 19:54: Q12H, # 60 [place] 00 tab, 0 Refill(s) Potassium 2020-05 Yes [...] Yes 0 Memoria Chloride 0-06 Refill(s) l ([place]-[facility]lor-C 19:54: [place] n on M20) 20 00 mEq oral tablet, extended release METFORMIN 2020-05 Yes METFORMIN Mem oria HYDROCHLORI 0-06 HYDROCHLOR l DE 500 MG 19:54: FABIEN 500 MG [place] TABS 00 TABS, Refill(s) 0 carvedilol 2020-05 Yes 6.25 mg = Me moria 6.25 mg 0-06 1 tab, PO, l oral tablet 19:54: Q12H, # 60 [place] 00 tab, 0 Refill(s) Potassium 2020-05 Yes 0 Memoria Chloride 0-06 Refill(s) l ([place]lor-C 19:54: [place] n on M20) 20 00 mEq oral tablet, extended release METFORMIN 2020-05 Yes METFORMIN Mem oria HYDROCHLORI 0-06 HYDROCHLOR l DE 500 MG 19:54: FABIEN 500 MG [place] TABS 00 TABS, Refill(s) 0 carvedilol 2020-05 Yes 6.25 mg = Me moria 6.25 mg 0-06 1 tab, PO, l oral tablet 19:54: Q12H, # 60 [place] 00 tab, 0 Refill(s) Potassium 2020-05 Yes [...] l oral tablet 19:54: Q12H, # 60 [place] 00 tab, 0 Refill(s) Potassium 2020-05 Yes [...] l oral tablet 19:54: Q12H, # 60 [place] 00 tab, 0 Refill(s) Potassium 2020-05 Yes [...] l oral tablet 19:54: Q12H, # 60 [place] 00 tab, 0 Refill(s) Potassium 2020-05 Yes [...] l oral tablet 19:54: Q12H, # 60 [place] 00 tab, 0 Refill(s) Potassium 2020-05 Yes [...] l oral tablet 19:54: Q12H, # 60 [place] 00 tab, 0 Refill(s) GLIMEPIRIDE 2020-05 Yes GLIMEPIRID Memoria 2MG TAB 0-06 E 2MG TAB, l 19:53: Refill(s) [place] 00 0 sacubitril 2020-05 Yes 0 Memoria 49 MG / 0-06 Refill(s) l valsartan 19:53: [place] 51 MG Oral 00 Tablet [Entresto] GLIMEPIRIDE 2020-05 Yes GLIMEPIRID Memoria 2MG TAB 0-06 E 2MG TAB, l 19:53: Refill(s) [place] 00 0 sacubitril 2020-05 Yes 0 Memoria 49 MG / 0-06 Refill(s) l valsartan 19:53: Kasi 51 MG Oral 00 Tablet [Entresto] GLIMEPIRIDE 2020-05 Yes GLIMEPIRID Memoria 2MG TAB 0-06 E 2MG TAB, l 19:53: Refill(s) [place]asi 00 0 sacubitril 2020-05 Yes 0 Memoria 49 MG / 0-06 Refill(s) l valsartan 19:53: [place] 51 MG Oral 00 Tablet [Entresto] GLIMEPIRIDE 2020-05 Yes GLIMEPIRID Memoria 2MG TAB 0-06 E 2MG TAB, l 19:53: Refill(s) [place] 00 0 sacubitril 2020-05 Yes 0 Memoria 49 MG / 0-06 Refill(s) l valsartan 19:53: [place] 51 MG Oral 00 Tablet [Entresto] GLIMEPIRIDE [...] MG / 0-06 Refill(s) l valsartan 19:53: [place] 51 MG Oral 00 Tablet [Entresto] GLIMEPIRIDE 2020-05 Yes GLIMEPIRID Memoria 2MG TAB 0-06 E 2MG TAB, l 19:53: Refill(s) [place] 00 0 sacubitril 2020-05 Yes 0 Memoria 49 MG / 0-06 Refill(s) l valsartan 19:53: Kasi 51 MG Oral 00 Tablet [Entresto] GLIMEPIRIDE 2020-05 Yes GLIMEPIRID Memoria 2MG TAB 0-06 E 2MG TAB, l 19:53: Refill(s) [place] 00 0 sacubitril 2020-05 Yes 0 Memoria 49 MG / 0-06 Refill(s) l valsartan 19:53: Kasi 51 MG Oral 00 Tablet [Entresto] GLIMEPIRIDE 2020-05 Yes GLIMEPIRID Memoria 2MG TAB 0-06 E 2MG TAB, l 19:53: Refill(s) [place] 00 0 sacubitril 2020-05 Yes 0 Memoria 49 MG / 0-06 Refill(s) l valsartan 19:53: Kasi 51 MG Oral 00 Tablet [Entresto] GLIMEPIRIDE 2020-05 Yes GLIMEPIRID Memoria 2MG TAB 0-06 E 2MG TAB, l 19:53: Refill(s) [place] 00 0 sacubitril 2020-05 Yes 0 Memoria 49 MG / 0-06 Refill(s) l valsartan 19:53: [place] 51 MG Oral 00 Tablet [Entresto] GLIMEPIRIDE 2020-05 Yes GLIMEPIRID Memoria 2MG TAB 0-06 E 2MG TAB, l 19:53: Refill(s) [place] 00 0 sacubitril 2020-05 Yes 0 Memoria 49 MG / 0-06 Refill(s) l valsartan 19:53: [place] 51 MG Oral 00 Tablet [Entresto] GLIMEPIRIDE [...] 0-06 E 2MG TAB, l 19:53: Refill(s) [place] 00 0 sacubitril 2020-05 Yes 0 Memoria 49 MG / 0-06 Refill(s) l valsartan 19:53: Kasi 51 MG Oral 00 Tablet [Entresto] GLIMEPIRIDE 2020-05 Yes GLIMEPIRID Memoria 2MG TAB 0-06 E 2MG TAB, l 19:53: Refill(s) [place] 00 0 sacubitril 2020-05 Yes 0 Memoria 49 MG / 0-06 Refill(s) l valsartan 19:53: Kasi 51 MG Oral 00 Tablet [Entresto] GLIMEPIRIDE 2020-05 Yes GLIMEPIRID Memoria 2MG TAB 0-06 E 2MG TAB, l 19:53: Refill(s) [place] 00 0 sacubitril 2020-05 Yes 0 Memoria 49 MG / 0-06 Refill(s) l valsartan 19:53: [place] 51 MG Oral 00 Tablet [Entresto] Furosemide 2020-05 Yes 40 mg = 1 Me moria 40 MG Oral 0-06 tab, PO, l Tablet 19:52: Daily, # [place] 00 30 tab, 0 Refill(s) Furosemide 2020-05 Yes 40 mg = 1 Me moria 40 MG Oral 0-06 tab, PO, l Tablet 19:52: Daily, # Kasi 00 30 tab, 0 Refill(s) Furosemide 2020-05 Yes 40 mg = 1 Me moria 40 MG Oral 0-06 tab, PO, l Tablet 19:52: Daily, # [place] 00 30 tab, 0 Refill(s) Furosemide 2020-05 [...] tab, PO, l Tablet 19:52: Daily, # [place] 00 30 tab, 0 Refill(s) Furosemide 2020-05 Yes 40 mg = 1 Me moria 40 MG Oral 0-06 tab, PO, l Tablet 19:52: Daily, # [place] 00 30 tab, 0 Refill(s) Furosemide 2020-05 [...] tab, PO, l Tablet 19:52: Daily, # [place] 00 30 tab, 0 Refill(s) Furosemide 2020-05 Yes 40 mg = 1 Me moria 40 MG Oral 0-06 tab, PO, l Tablet 19:52: Daily, # [place] 00 30 tab, 0 Refill(s) Furosemide 2020-05 Yes 40 mg = 1 Me moria 40 MG Oral 0-06 tab, PO, l Tablet 19:52: Daily, # [place] 00 30 tab, 0 Refill(s) Furosemide 2020-05 [...] tab, 0 Refill(s) Iron 325 Iron 325 0 No 1{table [...] lancets St formulary [facility] Medical insurance) [place] Blood Blood 2018-05 Yes Kilo as Common [...] Strip 00:00: Test Strip 00 Blood Blood 2018-05 No Blood Glucose [...] 2018-05 No Lancets - 2-03 00:00: 00 albuterol Yes 2.5mg Inhale 3 Uni vers [...] every 4 ity of mL (0.083 00:00: ([facility] [place] %) 00 hours. May Medical nebulizer also Branch solution nebulize one extra every 6 hours. albuterol 2017-0 Yes 2.5mg Inhale 3 Uni vers 2.5 mg /3 3-22 mL every 4 ity of mL (0.083 00:00: ([facility] [place] %) 00 hours. May Medical nebulizer also Branch solution nebulize one extra every 6 hours. albuterol 2017-0 Yes 2.5mg Inhale 3 Uni vers 2.5 mg /3 3-22 mL every 4 ity of mL (0.083 00:00: ([facility] [place] %) 00 hours. May Medical nebulizer also Branch solution nebulize one extra every 6 hours. albuterol 2017-0 Yes 2.5mg Inhale 3 Uni vers 2.5 mg /3 3-22 mL every 4 ity of mL (0.083 00:00: ([facility] [place] %) 00 hours. May Medical nebulizer also Branch solution nebulize one extra every 6 hours. albuterol 2017-0 Yes 2.5mg Inhale 3 Uni vers 2.5 mg /3 3-22 mL every 4 ity of mL (0.083 00:00: ([facility] [place] %) 00 hours. May Medical nebulizer also Branch solution nebulize one extra every 6 hours. albuterol 2017-0 Yes 2.5mg Inhale 3 Uni vers 2.5 mg /3 3-22 mL every 4 ity of mL (0.083 00:00: ([facility] [place] %) 00 hours. May Medical nebulizer also Branch solution nebulize one extra every 6 hours. albuterol 2017-0 Yes 2.5mg Inhale 3 Uni vers 2.5 mg /3 3-22 mL every 4 ity of mL (0.083 00:00: ([facility] [place] %) 00 hours. May Medical nebulizer [...] solution nebulize one extra every 6 hours. Glimepiride Glimepiride No Glimepirid 2 MG 2 [...] Glimepiride Yes Kilo 1 tablet Common Hernandez [facility] Noel Noel Yes Kilo 1 tablet Common Aspirin EC Aspirin EC Hernandez Sp loren Low Dose Low Dose [facility] Lisinopril Lisinopril Yes Kilo 1 tablet Common [facility] Furosemide Furosemide Yes Kilo 1 tablet Common Hernandez in am [facility] Coreg Coreg Yes Kilo 1 tablet Common [facility] Metformin Metformin Yes Kilo 1 tablet Common HCl HCl Hernandez with meals [facility] Entresto Entresto Yes Kilo 1 tablet C ommon 49/51mg 49/51mg Hernandez [facility] metFORMIN metFORMIN No metFORMIN HCl 500 [...] 20 [facility] ER 20 MEQ MEQ MEQ Klor-Con 10 [...] MG 2 MG t} e 2 MG carvedilol carvedilol No carvedilol [place] 6.25 mg 6.25 mg 6.25 mg da tablet TAKE tablet TAKE tablet Medical 1 TABLET BY 1 TABLET BY TAKE 1 Group MOUTH TWICE MOUTH TWICE TABLET BY DAILY DAILY MOUTH TWICE DAILY Meclizine Meclizine No 1{table TID Meclizine HCl [...] 81 Low Dose MG MG 81 MG clindamycin clindamycin No clindamyci [place] HCl 150 mg HCl 150 mg n HCl 150 da capsule capsule mg capsule Med ical TAKE FOUR TAKE FOUR TAKE FOUR Group CAPSULES BY CAPSULES BY CAPSULES MOUTH 30 60 MOUTH 30 60 BY MOUTH MINUTES MINUTES 30 60 PRIOR TO PRIOR TO MINUTES DENTAL DENTAL PRIOR TO APPOINTMENT APPOINTMENT DENTAL APPOINTMEN T traMADol traMADol No traMADol HCl 50 MG [...] 12.5 MG t_as_ne HCl 12.5 eded} MG Entresto 49 Entresto 49 No Entresto [...] MG HCl 50 MG HCl 50 MG furosemide furosemide No furosemide [place] 40 mg 40 mg 40 mg da tablet TAKE tablet TAKE tablet Medical 1 TABLET BY 1 TABLET BY TAKE 1 Group MOUTH EVERY MOUTH EVERY TABLET BY 48 HOURS 48 HOURS MOUTH EVERY 48 HOURS Furosemide Furosemide No QD Furosemide 40 MG [...] 12.5 MG t_as_ne HCl 12.5 eded} MG glimepiride glimepiride No glimepirid [place] 2 mg tablet 2 mg tablet e 2 mg da TAKE 1 TAKE 1 tablet Medical TABLET BY TABLET BY TAKE 1 Adela up MOUTH ONCE MOUTH ONCE TABLET BY DAILY FOR DAILY FOR MOUTH ONCE 90 DAYS 90 DAYS DAILY FOR 90 DAYS Klor-Con 10 Klor-Con 10 No 1{table QD [...] BID Coreg 6.25 MG MG t} MG ipratropium ipratropium No ipratropiu [place] bromide 21 bromide 21 m bromide da mcg (0.03 mcg (0.03 21 mcg Med ical %) nasal %) nasal (0.03 %) Adela up spray USE 2 spray USE 2 nasal SPRAY(S) IN SPRAY(S) IN spray USE EACH EACH 2 SPRAY(S) NOSTRIL NOSTRIL IN EACH TWICE DAILY TWICE DAILY NOSTRIL TWICE DAILY Glimepiride Glimepiride No Glimepirid 2 MG 2 [...] MEQ 10 MEQ t} 10 10 MEQ iron 65 mg iron 65 mg No iron 65 mg [place] tablet Take tablet Take tablet da by oral by oral Take by Medica l route. route. oral Group route. Potassium Potassium No Potassium Chloride Chloride Chloride [...] 2 MG 2 MG e 2 MG levofloxaci levofloxaci No levofloxac [place] n 500 mg n 500 mg in 500 mg da tablet TAKE tablet TAKE tablet Medical 1 TABLET BY 1 TABLET BY TAKE 1 Group MOUTH EVERY MOUTH EVERY TABLET BY DAY FOR 7 DAY FOR 7 MOUTH DAYS DAYS EVERY DAY FOR 7 DAYS Entresto Entresto No 1{table Entresto 49/51mg 49/51mg [...] MEQ 10 MEQ t} 10 10 MEQ meclizine meclizine No meclizine [place] 25 mg 25 mg 25 mg da tablet TAKE tablet TAKE tablet Medical 1 TABLET BY 1 TABLET BY TAKE 1 Group MOUTH THREE MOUTH THREE TABLET BY TIMES DAILY TIMES DAILY MOUTH THREE TIMES DAILY Potassium Potassium No Potassium Chloride Chloride Chloride [...] 2 MG 2 MG e 2 MG metformin metformin No metformin [place] 500 mg 500 mg 500 mg da tablet TAKE tablet TAKE tablet Medical 1 TABLET BY 1 TABLET BY TAKE 1 Group MOUTH TWICE MOUTH TWICE TABLET BY DAILY WITH DAILY WITH MOUTH MEALS FOR MEALS FOR TWICE 90 DAYS 90 DAYS DAILY WITH MEALS FOR 90 DAYS Entresto Entresto No 1{table Entresto 49/51mg 49/51mg [...] MEQ 10 MEQ t} 10 10 MEQ omeprazole omeprazole No omeprazole [place] 40 mg 40 mg 40 mg da capsule,del capsule,del capsule,de Medical ayed ayed layed Group release release release Take 1 Take 1 Take 1 capsule capsule capsule every day every day every day by oral by oral by oral route for route for route for 30 days. 30 days. 30 days. Potassium Potassium No Potassium Chloride Chloride Chloride [...] 12.5 MG t_as_ne HCl 12.5 eded} MG OneTouch OneTouch No OneTouch [facility] Delica Plus Delica Plus Delica da Lancet 33 Lancet 33 Plus Medic al gauge gauge Lancet 33 Group gauge traMADol traMADol No traMADol HCl 50 MG [...] BID Coreg 6.25 MG MG t} MG OneTouch OneTouch No OneTouch [facility] Ultra Blue Ultra Blue Ultra Blue da Test Strip Test Strip Test [facility] Potassium Potassium No Potassium Chloride Chloride Chloride [...] MEQ 10 MEQ t} 10 10 MEQ OneTouch OneTouch No OneTouch [facility] Ultra2 Ultra2 Ultra2 da Meter Meter [facility] Glimepiride Glimepiride No Glimepirid 2 MG 2 [...] MEQ 10 MEQ t} 10 10 MEQ tramadol 50 tramadol 50 No tramadol [place] mg tablet mg tablet 50 mg da TAKE 1 TAKE 1 tablet Medical TABLET BY TABLET BY TAKE 1 Adela up MOUTH EVERY MOUTH EVERY TABLET BY 8 HOURS 8 HOURS MOUTH NEEDED NEEDED EVERY 8 HOURS NEEDED Entresto Entresto No 1{table BID Entresto 49/51mg [...] MG HCl 500 MG HCl 500 MG accu-chek accu-chek No accu-chek [place] guide guide guide da w/device w/device w/device Med ical kit kit kit Group Noel Noel No 1{table QD Noel [...] one 25 MG t} tone 25 MG Breo Breo No Breo [place] Ellipta 200 Ellipta 200 Ellipta da mcg-25 mcg-25 200 mcg-25 Medic al mcg/dose mcg/dose mcg/dose Adela up powder for powder for powder for inhalation inhalation inhalation Noel Noel No 1{table QD Noel Aspirin [...] Carvedilol 6.25 MG 6.25 MG 6.25 MG Noel Noel No 1{table QD Noel [...] one 25 MG t} tone 25 MG Klor-Con 10 Klor-Con 10 2020- No Kilo 1 tablet Common 05-23 [facility] 00:00 - [facility] :00 [facility] Immunizations Ordered Filled Immunization Date Status Comments Sour e Immunization Name Name Influenza Virus 2022-04-24 Completed [facility] Vaccine Recomb Quad 00:00:00 [facility], Preserv and ABX Branc h Free 18-64 YRS Influenza Virus 2022-04-24 Completed [facility] Vaccine Recomb Quad 00:00:00 [facility], Preserv and ABX Branc h Free 18-64 YRS Influenza Virus 2022-04-24 Completed [facility] Vaccine Recomb Quad 00:00:00 [facility], Preserv and ABX Branc h [...] Completed [facility] of Conjugate, PCV20 00:00:00 [facility] (Prevnar 20) Branch Pneumococcal 20 2022-01-25 Completed [facility] Conjugate, PCV20 00:00:00 [facility] (Prevnar 20) Branch Pneumococcal 20 2022-01-25 Completed [facility] Conjugate, PCV20 00:00:00 [facility] (Prevnar 20) Branch Pneumococcal 20 2022-01-25 Completed [facility] Conjugate, PCV20 00:00:00 [facility] (Prevnar 20) Branch Pneumococcal 20 2022-01-25 [...] [facility] Conjugate, PCV20 00:00:00 [facility] (Pre[facility] 20) Branch Pneumococcal 20 2022-01-25 Completed [facility] Conjugate, PCV20 00:00:00 [facility] (Prevnar 20) [facility] Pneumococcal 20 2022-01-25 Completed [facility] Conjugate, PCV20 00:00:00 [facility] (Prevnar 20) Branch Pneumococcal 20 2022-01-25 Completed [facility] Conjugate, PCV20 00:00:00 [facility] (Prevnar 20) Branch Pneumococcal 20 2022-01-25 Completed [facility] Conjugate, PCV20 00:00:00 [facility] (Prevnar 20) Branch Pneumococcal 20 2022-01-25 [...] Completed [facility] Conjugate, PCV20 00:00:00 [facility] (Prevnar 20) [facility] COVID19 [facility] COVID19 2021-06-02 Completed [facility] Vaccine (Low Dose Vaccine (Low Dose 08:18:[address] [facility] Booster) Booster) [facility] COVID19 [facility] COVID19 2021-06-02 Completed [facility]ine (Low Dose Vaccine (Low Dose 08:18:[address] [facility] Booster) Booster) [facility] COVID19 [facility] COVID19 2021-06-02 Completed [facility] Vaccine (Low Dose Vaccine (Low Dose 08:18:[address] [facility] Booster) Booster) [facility] COVID19 [facility] COVID19 2021-06-02 Completed [facility] Vaccine (Low Dose Vaccine (Low Dose 08:18:[address] [facility] Booster) Booster) [facility] COVID19 [facility] COVID19 2021-06-02 Completed [facility] Vacc[facility] (Low Dose Vaccine (Low Dose 08:18:[address] [facility] Booster) Booster) [facility] COVID19 [facility] COVID-19 2021-06-02 Completed [facility] Vaccine (Low Dose Vaccine (Low Dose 08:18:[address] [facility] Booster) Booster) [facility] COVID19 [facility] COVID19 2021-06-02 Completed [facility] (Low Dose Vaccine (Low Dose 08:18:[address] [facility] Booster) Booster) [facility] [address] [facility] 2021-[facility]-02 Com[facility] Vaccine (Low Dose Vaccine (Low Dose 08:18:[address] [facility] Booster) Booster) [facility] [address] [facility] 2021-06-02 Com[facility]ine (Low Dose Vaccine (Low Dose 08:18:[address] [facility] [address] [facility] (Low Dose Vaccine (Low Dose 08:18:[address] [facility] [address] [facility] 2021-06-02 Com[facility] Vaccine (Low Dose Vaccine (Low Dose 08:18:[address] [facility] Booster) Booster) [facility] [address] [facility] 2021-06-02 Com[facility] Vaccine (Low Dose Vaccine (Low Dose 08:18:[address] [facility] Booster) Booster) [facility] [address] [facility] 2021-06-02 Com[facility]ine (Low Dose Vaccine (Low Dose 08:18:[address] [facility] [address] [facility] 2021-06-02 Com[facility] Vaccine (Low Dose Vaccine (Low Dose 08:18:[address] [facility] Booster) Booster) [facility] [address] [facility] 2021-06-02 Com[facility] Vaccine (Low Dose Vaccine (Low Dose 08:18:[address] [facility] Booster) Booster) [facility] [address] [facility] 2021-06-02 Com[facility]ine (Low Dose Vaccine (Low Dose 08:18:[address] [facility] Booster) Booster) [facility] [address] [facility] 2021-06-02 Com[facility] (Low Dose Vaccine (Low Dose 08:18:[address] [facility] Booster) Booster) [facility] Moderna COVID-19 Moderna COVID-19 2021-06-02 Completed [facility]ine (Low Dose Vaccine (Low Dose 08:18:[address] [facility] Booster) Booster) [facility] Moderna COVID-19 Moderna COVID-19 2021-06-02 Completed [facility]ine (Low Dose Vaccine (Low Dose 08:18:[address] [facility] Booster) Booster) [facility] SARS-COV-2 COVID-19 2021-06-02 Completed Unive rsity of VACCINE - (MODERNA) 00:00:00 [facility] SARS-COV-2 COVID-19 2021-06-02 Completed [facility]ive rsity of VACCINE - (MODERNA) 00:00:00 [facility] SARS-COV-2 COVID-19 2021-06-02 Completed [facility]ive rsity of VACCINE - (MODERNA) 00:00:00 [facility] SARS-COV-2 COVID-19 2021-06-02 Completed [facility]ive rs[facility] of VACCINE - (MODERNA) 00:00:00 [facility] SARS-COV-2 COVID-19 2021-06-02 Completed [facility]ive rsity of VACCINE - (MODERNA) 00:00:00 [facility] SARS-COV-2 COVID-19 2021-06-02 Completed [facility]ive rs[facility] of VACCINE - (MODERNA) 00:00:00 [facility] SARS-COV-2 COVID-19 2021-06-02 Completed [facility]ive rs[facility] of VACCINE - (MODERNA) 00:00:00 [facility] SARS-COV-2 COVID-19 2021-06-02 Completed [facility]ive rs[facility] of VACCINE - (MODERNA) 00:00:00 [facility] SARS-COV-2 COVID-19 2021-06-02 Completed [facility] rs[facility] of VACCINE - (MODERNA) 00:00:00 [facility] SARS-COV-2 COVID-19 2021-06-02 Completed [facility]ive rs[facility] of VACCINE - (MODERNA) 00:00:00 [facility] SARS-COV-2 COVID-19 2021-06-02 Completed [facility]ive rsity of VACCINE - (MODERNA) 00:00:00 [facility] SARS-COV-2 COVID-19 2021-06-02 Completed [facility]ive rs[facility] of VACCINE - (MODERNA) 00:00:00 [facility] SARS-COV-2 COVID-19 2021-06-02 Completed [facility]ive rs[facility] of VACCINE - (MODERNA) 00:00:00 [facility] SARS-COV-2 COVID-19 2021-06-02 Completed [facility]ive rsity of VACCINE - (MODERNA) 00:00:00 [facility] SARS-COV-2 COVID-19 2021-06-02 Completed [facility]ive rsity of VACCINE - (MODERNA) 00:00:00 [facility] SARS-COV-2 COVID-19 2021-06-02 Completed [facility]ive rs[facility] of VACCINE - (MODERNA) 00:00:00 [facility] SARS-COV-2 COVID-19 2021-06-02 Completed [facility]ive rs[facility] of VACCINE - (MODERNA) 00:00:00 [facility] SARS-COV-2 COVID-19 2021-06-02 Completed [facility]ive rs[facility] of VACCINE - (MODERNA) 00:00:00 [facility] SARS-COV-2 COVID-19 2021-06-02 Completed [facility]ive rs[facility] of VACCINE - (MODERNA) 00:00:00 [facility] SARS-COV-2 COVID-19 2021-06-02 Completed [facility]ive rs[facility] of VACCINE - (MODERNA) 00:00:00 [facility] SARS-COV-2 COVID-19 2021-06-02 Completed [facility]ive rs[facility] of VACCINE - (MODERNA) 00:00:00 [facility] SARS-COV-2 COVID-19 2021-06-02 Completed [facility] of VACCINE - (MODERNA) 00:00:00 [facility] SARS-COV-2 COVID-19 2021-06-02 Completed [facility] of VACCINE - (MODERNA) 00:00:00 [facility] SARS-COV-2 COVID-19 2021-06-02 Completed [facility] rs[facility] of VACCINE - (MODERNA) 00:00:00 [facility] SARS-COV-2 COVID-19 2021-06-02 Completed [facility] of VACCINE - (MODERNA) 00:00:00 [facility] SARS-COV-2 COVID-19 2021-06-02 Completed [facility]ive rs[facility] of VACCINE - (MODERNA) 00:00:00 [facility] Fluzone Fluzone 2021-02-21 Completed [facility] 14:39:00 [facility] Fluzone Fluzone 2021-02-21 Completed [facility] - 14:39:00 [facility] Fluzone Fluzone 2021-02-21 Completed [facility] - 14:39:00 [facility] Fluzone Fluzone 2021-02-21 Completed [facility] 14:39:00 [facility] Fluzone Fluzone 2021-02-21 Completed [facility] - 14:39:00 [facility] Fluzone Fluzone 2021-02-21 Completed [facility] - 14:39:00 [facility] Fluzone Fluzone 2021-02-21 Completed [facility] - 14:39:00 [facility] Fluzone Fluzone 2021-02-21 Completed [facility] 14:39:00 [facility] Fluzone Fluzone 2021-02-21 Completed [facility] 14:39:00 [facility] Fluzone Fluzone 2021-02-21 Completed [facility] - 14:39:00 [facility] Fluzone Fluzone 2021-02-21 Completed [facility] - 14:39:00 [facility] Fluzone Fluzone 2021-02-21 Completed [facility] - 14:39:00 [facility] Fluzone Fluzone 2021-02-21 Completed [facility] - 14:39:00 [facility] Fluzone Fluzone 2021-02-21 Completed [facility] - 14:39:00 [facility] Fluzone Fluzone 2021-02-21 Completed [facility] - 14:39:00 [facility] Fluzone Fluzone 2021-02-21 Completed [facility] 14:39:00 [facility] Fluzone Fluzone 2021-02-21 Completed [facility] - 14:39:00 [facility] Fluzone Fluzone 2021-02-21 Completed [facility] - 14:39:00 [facility] Fluzone Fluzone 2021-02-21 Completed [facility] - 14:39:00 [facility] Fluzone Fluzone 2021-02-21 Completed [facility] - 14:39:00 [facility] Fluzone Fluzone 2021-02-21 Completed [facility] 14:39:00 [facility] Fluzone Fluzone 2021-02-21 Completed [facility] - 14:39:00 [facility] Fluzone Fluzone 2021-02-21 Completed [facility] 14:39:00 [facility] Fluzone Fluzone 2021-02-21 Completed [facility] 14:39:00 [facility] Fluzone Fluzone 2021-02-21 Completed [facility] 14:39:00 [facility] Fluzone Fluzone 2021-02-21 Completed [facility] 14:39:00 [facility] Fluzone Fluzone 2021-02-21 Completed [facility] 14:39:00 [facility] Influenza Virus 2021-02-21 Completed [facility] Vaccine Quad .5 mL 00:00:00 [facility] 6+ MO Branch Influenza Virus 2021-02-21 Completed [facility] of Vaccine (3+ yrs) 00:00:00 [facility] Influenza Virus 2021-02-21 Completed [facility] of Vaccine Quad .5 mL 00:00:00 [facility] 6+ MO Branch Influenza Virus 2021-02-21 Completed [facility] Vaccine (3+ yrs) 00:00:00 [facility] Influenza Virus 2021-02-21 Completed [facility] Vaccine Quad .5 mL 00:00:00 [facility] 6+ MO Branch Influenza Virus 2021-02-21 Completed [facility] Vaccine (3+ yrs) 00:00:00 [facility] Influenza Virus 2021-02-21 Completed [facility] Vaccine Quad .5 mL 00:00:00 [facility] 6+ MO Branch Influenza Virus 2021-02-21 Completed [facility] Vaccine (3+ yrs) 00:00:00 [facility] Influenza Virus 2021-02-21 Completed [facility] Vaccine Quad .5 mL 00:00:00 [facility] 6+ MO Branch Influenza Virus 2021-02-21 Completed [facility] Vaccine (3+ yrs) 00:00:00 [facility] Influenza Virus 2021-02-21 Completed [facility] of Vaccine Quad .5 mL 00:00:00 [facility] 6+ MO Branch Influenza Virus 2021-02-21 Completed [facility] Vaccine (3+ yrs) 00:00:00 [facility] Influenza Virus 2021-02-21 Completed [facility] Vaccine Quad .5 mL 00:00:00 [facility] 6+ MO Branch Influenza Virus 2021-02-21 Completed [facility] Vaccine (3+ yrs) 00:00:00 [facility] Influenza Virus 2021-02-21 Completed [facility] Vaccine Quad .5 mL 00:00:00 [facility] 6+ MO Branch Influenza Virus 2021-02-21 Completed [facility] Vaccine (3+ yrs) 00:00:00 [facility] Influenza Virus 2021-02-21 Completed [facility] Vaccine Quad .5 mL 00:00:00 [facility] 6+ MO Branch Influenza Virus 2021-02-21 Completed [facility] Vaccine (3+ yrs) 00:00:00 [facility] Influenza Virus 2021-02-21 Completed [facility] of Vaccine Quad .5 mL 00:00:00 [facility] 6+ MO Branch Influenza Virus 2021-02-21 Completed [facility] Vaccine (3+ yrs) 00:00:00 [facility] Influenza Virus 2021-02-21 Completed [facility] Vaccine Quad .5 mL 00:00:00 [facility] 6+ MO Branch Influenza Virus 2021-02-21 Completed [facility] Vaccine (3+ yrs) 00:00:00 [facility] Influenza Virus 2021-02-21 Completed [facility] Vaccine Quad .5 mL 00:00:00 [facility] 6+ MO Branch Influenza Virus 2021-02-21 Completed [facility] Vaccine (3+ yrs) 00:00:00 [facility] Influenza Virus 2021-02-21 Completed [facility] Vaccine Quad .5 mL 00:00:00 [facility] 6+ MO Branch Influenza Virus 2021-02-21 Completed [facility] Vaccine (3+ yrs) 00:00:00 [facility] Influenza Virus 2021-02-21 Completed [facility] Vaccine Quad .5 mL 00:00:00 [facility] 6+ MO Branch Influenza Virus 2021-02-21 Completed [facility] of Vaccine (3+ yrs) 00:00:00 [facility] Branch Influenza Virus 2021-02-21 Completed [facility] of Vaccine Quad .5 mL 00:00:00 [facility] IM 6+ MO Branch Influenza Virus 2021-02-21 Completed [facility] y of Vaccine (3+ yrs) 00:00:00 [facility] Influenza Virus 2021-02-21 Completed [facility] of Vaccine Quad .5 mL 00:00:00 [facility] IM 6+ MO Branch Influenza Virus 2021-02-21 Completed [facility] of Vaccine (3+ yrs) 00:00:00 [facility] Influenza Virus 2021-02-21 Completed [facility] Vaccine Quad .5 mL 00:00:00 [facility] 6+ MO Branch Influenza Virus 2021-02-21 Completed [facility] of Vaccine (3+ yrs) 00:00:00 [facility] Influenza Virus 2021-02-21 Completed [facility] Vaccine Quad .5 mL 00:00:00 [facility] 6+ MO Branch Influenza Virus 2021-02-21 Completed [facility] of Vaccine (3+ yrs) 00:00:00 [facility] Influenza Virus 2021-02-21 Completed [facility] of Vaccine Quad .5 mL 00:00:00 [facility] 6+ MO Branch Influenza Virus 2021-02-21 Completed [facility] of Vaccine (3+ yrs) 00:00:00 [facility] Influenza Virus 2021-02-21 Completed [facility] Vaccine Quad .5 mL 00:00:00 [facility] 6+ MO Branch Influenza Virus 2021-02-21 Completed [facility] of Vaccine (3+ yrs) 00:00:00 [facility] Influenza Virus 2021-02-21 Completed [facility] of Vaccine Quad .5 mL 00:00:00 [facility] IM 6+ MO Branch Influenza Virus 2021-02-21 Completed [facility] of Vaccine (3+ yrs) 00:00:00 [facility] Influenza Virus 2021-02-21 Completed [facility] Vaccine Quad .5 mL 00:00:00 [facility] 6+ MO Branch Influenza Virus 2021-02-21 Completed [facility] of Vaccine (3+ yrs) 00:00:00 [facility] Influenza Virus 2021-02-21 Completed [facility] of Vaccine Quad .5 mL 00:00:00 [facility] 6+ MO Branch Influenza Virus 2021-02-21 Completed [facility] Vaccine (3+ yrs) 00:00:00 [facility] Influenza Virus 2021-02-21 Completed [facility] of Vaccine Quad .5 mL 00:00:00 [facility] 6+ MO Branch Influenza Virus 2021-02-21 Completed [facility] of Vaccine (3+ yrs) 00:00:00 [facility] Influenza Virus 2021-02-21 Completed [facility] Vaccine Quad .5 mL 00:00:00 [facility] 6+ MO Branch Influenza Virus 2021-02-21 Completed [facility] of Vaccine (3+ yrs) 00:00:00 [facility] Influenza Virus 2021-02-21 Completed [facility] of Vaccine Quad .5 mL 00:00:00 [facility] 6+ MO Branch Influenza Virus 2021-02-21 Completed [facility] of Vaccine (3+ yrs) 00:00:00 [facility] Moderna COVID-19 Moderna COVID-19 2020-10-03 Completed [facility] Vaccine Vaccine 14:55:00 [facility] Moderna COVID-19 Moderna COVID-19 2020-10-03 Completed [facility] - Vaccine Vaccine 14:55:00 [facility] Moderna COVID-19 Moderna COVID-19 2020-10-03 Completed [facility] Vaccine Vaccine 14:55:00 [facility] Moderna COVID-19 Moderna COVID-19 2020-10-03 Completed [facility] Vaccine Vaccine 14:55:00 [facility] Moderna COVID-19 Moderna COVID-19 2020-10-03 Completed [facility] Vaccine Vaccine 14:55:00 [facility] Moderna COVID-19 Moderna COVID-19 2020-10-03 Completed [facility] Vaccine Vaccine 14:55:00 [facility] Moderna COVID-19 Moderna COVID-19 2020-10-03 Completed [facility] Vaccine Vaccine 14:55:00 [facility] Moderna COVID-19 Moderna COVID-19 2020-10-03 Completed [facility] - Vaccine Vaccine 14:55:00 [facility] Moderna COVID-19 Moderna COVID-19 2020-10-03 Completed [facility] - Vaccine Vaccine 14:55:00 [facility] Moderna COVID-19 Moderna COVID-19 2020-10-03 Completed [facility] Vaccine Vaccine 14:55:00 [facility] Moderna COVID-19 Moderna COVID-19 2020-10-03 Completed [facility] - Vaccine Vaccine 14:55:00 [facility] Moderna COVID-19 Moderna COVID-19 2020-10-03 Completed [facility] - Vaccine Vaccine 14:55:00 [facility] Moderna COVID-19 Moderna COVID-19 2020-10-03 Completed [facility] Vaccine Vaccine 14:55:00 [facility] Moderna COVID-19 Moderna COVID-19 2020-10-03 Completed [facility] - Vaccine Vaccine 14:55:00 [facility] Moderna COVID-19 Moderna COVID-19 2020-10-03 Completed [facility] - Vaccine Vaccine 14:55:00 [facility] Moderna COVID-19 Moderna COVID-19 2020-10-03 Completed [facility] - Vaccine Vaccine 14:55:00 [facility] Moderna COVID-19 Moderna COVID-19 2020-10-03 Completed [facility] - Vaccine Vaccine 14:55:00 [facility] Moderna COVID-19 Moderna COVID-19 2020-10-03 Completed [facility] Vaccine Vaccine 14:55:00 [facility] Moderna COVID-19 Moderna COVID-19 2020-10-03 Completed [facility] - Vaccine Vaccine 14:55:00 [facility] Moderna COVID-19 Moderna COVID-19 2020-10-03 Completed [facility] Vaccine Vaccine 14:55:00 [facility] Moderna COVID-19 Moderna COVID-19 2020-10-03 Completed [facility] Vaccine Vaccine 14:55:00 [facility] Moderna COVID-19 Moderna COVID-19 2020-10-03 Completed [facility] - Vaccine Vaccine 14:55:00 [facility] Moderna COVID-19 Moderna COVID-19 2020-10-03 Completed [facility] Vaccine Vaccine 14:55:00 [facility] Moderna COVID-19 Moderna COVID-19 2020-10-03 Completed [facility] Vaccine Vaccine 14:55:00 [facility] Moderna COVID-19 Moderna COVID-19 2020-10-03 Completed [facility] Vaccine Vaccine 14:55:00 [facility] Moderna COVID-19 Moderna COVID-19 2020-10-03 Completed [facility] Vaccine Vaccine 14:55:00 [facility] Moderna COVID-19 Moderna COVID-19 2020-10-03 Completed [facility] Vaccine Vaccine 14:55:00 [facility] SARS-COV-2 COVID-19 2020-10-03 Completed [facility] of VACCINE - (MODERNA) 00:00:00 [facility] SARS-COV-2 COVID-19 2020-10-03 Completed [facility] of VACCINE - (MODERNA) 00:00:00 [facility] SARS-COV-2 COVID-19 2020-10-03 Completed [facility] of VACCINE - (MODERNA) 00:00:00 [facility] SARS-COV-2 COVID-19 2020-10-03 Completed [facility] of VACCINE - (MODERNA) 00:00:00 [facility] SARS-COV-2 COVID-19 2020-10-03 Completed [facility] of VACCINE - (MODERNA) 00:00:00 [facility] SARS-COV-2 COVID-19 2020-10-03 Completed [facility] of VACCINE - (MODERNA) 00:00:00 [facility] SARS-COV-2 COVID-19 2020-10-03 Completed [facility] of VACCINE - (MODERNA) 00:00:00 [facility] SARS-COV-2 COVID-19 2020-10-03 Completed [facility] of VACCINE - (MODERNA) 00:00:00 [facility] SARS-COV-2 COVID-19 2020-10-03 Completed [facility] of VACCINE - (MODERNA) 00:00:00 [facility] SARS-COV-2 COVID-19 2020-10-03 Completed [facility] of VACCINE - (MODERNA) 00:00:00 [facility] SARS-COV-2 COVID-19 2020-10-03 Completed [facility] of VACCINE - (MODERNA) 00:00:00 [facility] SARS-COV-2 COVID-19 2020-10-03 Completed [facility] of VACCINE - (MODERNA) 00:00:00 [facility] SARS-COV-2 COVID-19 2020-10-03 Completed [facility] of VACCINE - (MODERNA) 00:00:00 [facility] SARS-COV-2 COVID-19 2020-10-03 Completed [facility] of VACCINE - (MODERNA) 00:00:00 [facility] SARS-COV-2 COVID-19 2020-10-03 Completed [facility] of VACCINE - (MODERNA) 00:00:00 [facility] SARS-COV-2 COVID-19 2020-10-03 Completed [facility] of VACCINE - (MODERNA) 00:00:00 [facility] SARS-COV-2 COVID-19 2020-10-03 Completed [facility] of VACCINE - (MODERNA) 00:00:00 [facility] SARS-COV-2 COVID-19 2020-10-03 Completed [facility] of VACCINE - (MODERNA) 00:00:00 [facility] SARS-COV-2 COVID-19 2020-10-03 Completed [facility] of VACCINE - (MODERNA) 00:00:00 [facility] SARS-COV-2 COVID-19 2020-10-03 Completed [facility] of VACCINE - (MODERNA) 00:00:00 [facility] SARS-COV-2 COVID-19 2020-10-03 Completed [facility] of VACCINE - (MODERNA) 00:00:00 [facility] SARS-COV-2 COVID-19 2020-10-03 Completed [facility] of VACCINE - (MODERNA) 00:00:00 [facility] SARS-COV-2 COVID-19 2020-10-03 Completed [facility] of VACCINE - (MODERNA) 00:00:00 [facility] SARS-COV-2 COVID-19 2020-10-03 Completed [facility] of VACCINE - (MODERNA) 00:00:00 [facility] SARS-COV-2 COVID-19 2020-10-03 Completed [facility] of VACCINE - (MODERNA) 00:00:00 [facility] SARS-COV-2 COVID-19 2020-10-03 Completed [facility] of VACCINE - (MODERNA) 00:00:00 [facility] Moderna COVID-19 Moderna COVID-19 2020-09-05 Completed [facility] Vaccine 10:56:00 [facility] Moderna COVID-19 Moderna COVID-19 2020-09-05 Completed [facility] - Vaccine Vaccine 10:56:00 [facility] Moderna COVID-19 Moderna COVID-19 2020-09-05 Completed [facility] - Vaccine Vaccine 10:56:00 [facility] Moderna COVID-19 Moderna COVID-19 2020-09-05 Completed [facility] - Vaccine Vaccine 10:56:00 [facility] Moderna COVID-19 Moderna COVID-19 2020-09-05 Completed [facility] - Vaccine Vaccine 10:56:00 [facility] Moderna COVID-19 Moderna COVID-19 2020-09-05 Completed [facility] - Vaccine Vaccine 10:56:00 [facility] Moderna COVID-19 Moderna COVID-19 2020-09-05 Completed [facility] - Vaccine Vaccine 10:56:00 [facility] Moderna COVID-19 Moderna COVID-19 2020-09-05 Completed [facility] - Vaccine Vaccine 10:56:00 [facility] Moderna COVID-19 Moderna COVID-19 2020-09-05 Completed [facility] - Vaccine Vaccine 10:56:00 [facility] Moderna COVID-19 Moderna COVID-19 2020-09-05 Completed [facility] - Vaccine Vaccine 10:56:00 [facility] Moderna COVID-19 Moderna COVID-19 2020-09-05 Completed [facility] - Vaccine Vaccine 10:56:00 [facility] Moderna COVID-19 Moderna COVID-19 2020-09-05 Completed [facility] - Vaccine Vaccine 10:56:00 [facility] Moderna COVID-19 Moderna COVID-19 2020-09-05 Completed [facility] - Vaccine Vaccine 10:56:00 [facility] Moderna COVID-19 Moderna COVID-19 2020-09-05 Completed [facility] - Vaccine Vaccine 10:56:00 [facility] Moderna COVID-19 Moderna COVID-19 2020-09-05 Completed [facility] - Vaccine Vaccine 10:56:00 [facility] Moderna COVID-19 Moderna COVID-19 2020-09-05 Completed [facility] - Vaccine Vaccine 10:56:00 [facility] Moderna COVID-19 Moderna COVID-19 2020-09-05 Completed [facility] - Vaccine Vaccine 10:56:00 [facility] Moderna COVID-19 Moderna COVID-19 2020-09-05 Completed [facility] - Vaccine Vaccine 10:56:00 [facility] Moderna COVID-19 Moderna COVID-19 2020-09-05 Completed [facility] - Vaccine Vaccine 10:56:00 [facility] Moderna COVID-19 Moderna COVID-19 2020-09-05 Completed [facility] - Vaccine Vaccine 10:56:00 [facility] Moderna COVID-19 Moderna COVID-19 2020-09-05 Completed [facility] - Vaccine Vaccine 10:56:00 [facility] Moderna COVID-19 Moderna COVID-19 2020-09-05 Completed [facility] - Vaccine Vaccine 10:56:00 [facility] Moderna COVID-19 Moderna COVID-19 2020-09-05 Completed [facility] - Vaccine Vaccine 10:56:00 [facility] Moderna COVID-19 Moderna COVID-19 2020-09-05 Completed [facility] - Vaccine Vaccine 10:56:00 [facility] Moderna COVID-19 Moderna COVID-19 2020-09-05 Completed [facility] - Vaccine Vaccine 10:56:00 [facility] Moderna COVID-19 Moderna COVID-19 2020-09-05 Completed [facility] - Vaccine Vaccine 10:56:00 [facility] Moderna COVID-19 Moderna COVID-19 2020-09-05 Completed [facility] - Vaccine Vaccine 10:56:00 [facility] SARS-COV-2 COVID-19 2020-09-05 Completed [facility] VACCINE - (MODERNA) 00:00:00 [facility] SARS-COV-2 COVID-19 2020-09-05 Completed [facility] VACCINE - (MODERNA) 00:00:00 [facility] SARS-COV-2 COVID-19 2020-09-05 Completed [facility] VACCINE - (MODERNA) 00:00:00 [facility] SARS-COV-2 COVID-19 2020-09-05 Completed [facility] VACCINE - (MODERNA) 00:00:00 [facility] SARS-COV-2 COVID-19 2020-09-05 Completed [facility] VACCINE - (MODERNA) 00:00:00 [facility] SARS-COV-2 COVID-19 2020-09-05 Completed [facility] of VACCINE - (MODERNA) 00:00:00 [facility] SARS-COV-2 COVID-19 2020-09-05 Completed [facility] VACCINE - (MODERNA) 00:00:00 [facility] SARS-COV-2 COVID-19 2020-09-05 Completed [facility] VACCINE - (MODERNA) 00:00:00 [facility] SARS-COV-2 COVID-19 2020-09-05 Completed [facility] VACCINE - (MODERNA) 00:00:00 [facility] SARS-COV-2 COVID-19 2020-09-05 Completed [facility] of VACCINE - (MODERNA) 00:00:00 [facility] SARS-COV-2 COVID-19 2020-09-05 Completed [facility] of VACCINE - (MODERNA) 00:00:00 [facility] SARS-COV-2 COVID-19 2020-09-05 Completed [facility] of VACCINE - (MODERNA) 00:00:00 [facility] SARS-COV-2 COVID-19 2020-09-05 Completed [facility] of VACCINE - (MODERNA) 00:00:00 [facility] SARS-COV-2 COVID-19 2020-09-05 Completed [facility] of VACCINE - (MODERNA) 00:00:00 [facility] SARS-COV-2 COVID-19 2020-09-05 Completed [facility] of VACCINE - (MODERNA) 00:00:00 [facility] SARS-COV-2 COVID-19 2020-09-05 Completed [facility] of VACCINE - (MODERNA) 00:00:00 [facility] SARS-COV-2 COVID-19 2020-09-05 Completed [facility] of VACCINE - (MODERNA) 00:00:00 [facility] SARS-COV-2 COVID-19 2020-09-05 Completed [facility] of VACCINE - (MODERNA) 00:00:00 [facility] SARS-COV-2 COVID-19 2020-09-05 Completed [facility] of VACCINE - (MODERNA) 00:00:00 [facility] SARS-COV-2 COVID-19 2020-09-05 Completed [facility] of VACCINE - (MODERNA) 00:00:00 [facility] SARS-COV-2 COVID-19 2020-09-05 Completed [facility] of VACCINE - (MODERNA) 00:00:00 [facility] SARS-COV-2 COVID-19 2020-09-05 Completed [facility] of VACCINE - (MODERNA) 00:00:00 [facility] SARS-COV-2 COVID-19 2020-09-05 Completed [facility] of VACCINE - (MODERNA) 00:00:00 [facility] SARS-COV-2 COVID-19 2020-09-05 Completed [facility] of VACCINE - (MODERNA) 00:00:00 [facility] SARS-COV-2 COVID-19 2020-09-05 Completed [facility] of VACCINE - (MODERNA) 00:00:00 [facility] SARS-COV-2 COVID-19 2020-09-05 Completed [facility] of VACCINE - (MODERNA) 00:00:00 [facility] Vital Signs Vital Name Observation Time Observation Value Comments Source Systolic blood 2022-10-03 14:55:00 90 mm[Hg] [facility] Diastolic blood 2022-10-03 14:55:00 63 mm[Hg] [facility] of pressure [facility] Heart rate 2022-10-03 14:55:00 63 /min [facility] Body height 2022-10-03 14:55:00 154.9 cm [facility] Body weight 2022-10-03 14:55:00 116.166 kg [facility] BMI 2022-10-03 14:55:00 48.39 kg/m2 [facility] Oxygen saturation in 2022-10-03 14:55:00 96 /min [facility] Arterial blood by [employer] [facility] oxim[facility] Systolic blood 2022-10-02 14:43:00 92 mm[Hg] [facility]iver [facility]ity of pressure [facility] Diastolic blood 2022-10-02 14:43:00 61 mm[Hg] [facility]ive [facility] of pressure [facility] Heart rate 2022-10-02 14:43:00 71 /min [facility] Respiratory rate 2022-10-02 14:39:00 19 /min [facility] Body height 2022-10-02 14:39:00 154.9 cm [facility] Body weight 2022-10-02 14:39:00 115.486 kg [facility] BMI 2022-10-02 14:39:00 48.11 kg/m2 [facility] Oxygen saturation in 2022-10-02 14:39:00 94 /min [facility] Arterial blood by [employer] [facility] Systolic blood 2022-09-27 19:22:00 111 mm[Hg] [facility] Diastolic blood 2022-09-27 19:22:00 72 mm[Hg] [facility] Heart rate 2022-09-27 19:22:00 70 /min [facility] Respiratory rate 2022-09-27 19:22:00 18 /min [facility] Body height 2022-09-27 19:22:00 154.9 cm [facility] Body weight 2022-09-27 19:22:00 115.35 kg [facility] BMI 2022-09-27 19:22:00 48.05 kg/m2 [facility] Oxygen saturation in 2022-09-27 19:22:00 99 /min [facility] blood by [facility] merlyn Pulse oximetry Branch Systolic blood 2022-08-19 15:57:00 90 mm[Hg] [facility] Diastolic blood 2022-08-19 15:57:00 63 mm[Hg] [facility] pressure [facility] Heart rate 2022-08-19 15:57:00 67 /min [facility] Body height 2022-08-19 15:57:00 154.9 cm [facility] Body weight 2022-08-19 15:57:00 113.898 kg [facility] BMI 2022-08-19 15:57:00 47.44 kg/m2 [facility] Oxygen saturation in 2022-08-19 15:57:00 96 /min [facility] by [facility] merlyn Pulse oxim[facility] Branch Systolic blood 2022-07-08 19:02:00 95 mm[Hg] [facility] Diastolic blood 2022-07-08 19:02:00 54 mm[Hg] [facility] Heart rate 2022-07-08 19:02:00 62 /min [facility] Body temperature 2022-07-08 19:02:00 36.33 Marya [facility] Respiratory rate 2022-07-08 19:02:00 18 /min [facility] Body height 2022-07-08 19:02:00 154.9 cm Universi [facility] Body weight 2022-07-08 19:02:00 115.713 kg Universi [facility] BMI 2022-07-08 19:02:00 48.20 kg/m2 [facility] Oxygen saturation in 2022-07-08 19:02:00 99 /min [facility] Arterial blood by [facility] Pulse oximetry Branch height 2022-05-30 13:40:00 61 [in_i] [facility] weight 2022-05-30 13:40:00 249.4 [lb_av] [facility] temperature 2022-05-30 13:40:00 97.4 [degF] Common [facility] bmi 2022-05-30 13:40:00 47.12 kg/m2 [facility] oximetry 2022-05-30 13:40:00 96 % [facility] respiratory rate 2022-05-30 13:40:00 17 /min Comm on [facility] blood pressure 2022-05-30 13:40:00 119 mm[Hg] Common [facility] - systolic [facility] blood pressure 2022-05-30 13:40:00 68 mm[Hg] Common [facility] - diastolic [facility] height 2022-05-30 14:00:00 61 [in_i] [facility] weight 2022-05-30 14:00:00 249.4 [lb_av] [facility] temperature 2022-05-30 14:00:00 97.4 [degF] Common [facility] bmi 2022-05-30 14:00:00 47.12 kg/m2 [facility] oximetry 2022-05-30 14:00:00 96 % [facility] respiratory rate 2022-05-30 14:00:00 17 /min [facility] on [facility] blood pressure 2022-05-30 14:00:00 119 mm[Hg] [facility] - [facility] blood pressure 2022-05-30 14:00:00 68 mm[Hg] [facility] - diastolic [facility] Systolic blood 2022-04-10 17:14:00 109 mm[Hg] Univer sity of pressure [facility] Diastolic blood 2022-04-10 17:14:00 71 mm[Hg] Unive rsity of pressure [facility] Heart rate 2022-04-10 17:14:00 65 /min [facility] Respiratory rate 2022-04-10 17:14:00 19 /min Univ ersity [facility] Body height 2022-04-10 17:14:00 154.9 cm Universi ty [facility] Body weight 2022-04-10 17:14:00 115.123 kg Universi ty [facility] BMI 2022-04-10 17:14:00 47.96 kg/m2 Universi ty [facility] Oxygen saturation in 2022-04-10 17:14:00 97 /min [facility] Arterial blood by [facility] Pulse oximetry Branch Systolic blood 2022-02-25 18:19:00 114 mm[Hg] Univer sity of [facility] Diastolic blood 2022-02-25 18:19:00 74 mm[Hg] Unive rsity of [facility] Heart rate 2022-02-25 18:19:00 79 /min Universi ty [facility] Body temperature 2022-02-25 18:19:00 36.17 [facility] 2022-02-25 18:19:00 16 /min [facility] weight 2022-02-25 18:19:00 114.443 kg [facility] BMI 2022-02-25 18:19:00 47.67 kg/m2 [facility] height 2022-01-24 11:00:00 61 [in_i] [facility] weight 2022-01-24 11:00:00 250 [lb_av] [facility] temperature 2022-01-24 11:00:00 97.3 [degF] Common [facility] bmi 2022-01-24 11:00:00 47.23 kg/m2 Common [facility] oximetry 2022-01-24 11:00:00 95 % Common [facility] respiratory rate 2022-01-24 11:00:00 18 /min [facility] blood pressure 2022-01-24 11:00:00 100 mm[Hg] Common [facility] - systolic [facility] blood pressure 2022-01-24 11:00:00 59 mm[Hg] [facility] - diastolic [facility] height 2021-12-04 10:20:00 [facility] weight 2021-12-04 10:20:00 260 [lb_av] [facility] temperature 2021-12-04 10:20:00 97.3 [degF] [facility] bmi 2021-12-04 10:20:00 49.12 kg/m2 [facility] oximetry 2021-12-04 10:20:00 96 % Common [facility] respiratory rate 2021-12-04 10:20:00 18 /min Comm on [facility] blood pressure 2021-12-04 10:20:00 110 mm[Hg] Common [facility] - systolic [facility] blood pressure 2021-12-04 10:20:00 65 mm[Hg] [facility] - diastolic [facility] height 2021-09-04 09:40:00 62.25 [in_i] [facility] weight 2021-09-04 09:40:00 261.4 [lb_av] [facility] temperature 2021-09-04 09:40:00 98.1 [degF] [facility] bmi 2021-09-04 09:40:00 47.42 kg/m2 Common [facility] oximetry 2021-09-04 09:40:00 100 % Common [facility] respiratory rate 2021-09-04 09:40:00 16 /min Comm on [facility] blood pressure 2021-09-04 09:40:00 110 mm[Hg] Common [facility] - systolic [facility] blood pressure 2021-09-04 09:40:00 84 mm[Hg] [facility] - diastolic [facility] height 2021-06-05 10:00:00 62.25 [in_i] Common [facility] weight 2021-06-05 10:00:00 259 [lb_av] [facility] temperature 2021-06-05 10:00:00 98.1 [degF] [facility] bmi 2021-06-05 10:00:00 46.99 kg/m2 [facility] oximetry 2021-06-05 10:00:00 96 % [facility] respiratory rate 2021-06-05 10:00:00 18 /min Comm on [facility] blood pressure 2021-06-05 10:00:00 96 mm[Hg] Common [facility] - systolic [facility] blood pressure 2021-06-05 10:00:00 50 mm[Hg] Common [facility] - diastolic [facility] height 2021-06-05 10:20:00 62.25 [in_i] [facility] weight 2021-06-05 10:20:00 259 [lb_av] [facility] temperature 2021-06-05 10:20:00 98.1 [degF] [facility] bmi 2021-06-05 10:20:00 46.99 kg/m2 [facility] oximetry 2021-06-05 10:20:00 96 % [facility] blood pressure 2021-06-05 10:20:00 96 mm[Hg] [facility] - [facility] blood pressure 2021-06-05 10:20:00 50 mm[Hg] [facility] - diastolic [facility] height 2021-05-14 10:00:00 62.25 [in_i] [facility] weight 2021-05-14 10:00:00 269 [lb_av] [facility] bmi 2021-05-14 10:00:00 48.8 kg/m2 [facility] height 2021-03-26 10:00:00 62.25 [in_i] Common [facility] weight 2021-03-26 10:00:00 261 [lb_av] [facility] temperature 2021-03-26 10:00:00 97.1 [degF] [facility] bmi 2021-03-26 10:00:00 47.35 kg/m2 [facility] oximetry 2021-03-26 10:00:00 96 % [facility] respiratory rate 2021-03-26 10:00:00 16 /min [facility] on [facility] blood pressure 2021-03-26 10:00:00 104 mm[Hg] [facility] - systolic [facility] blood pressure 2021-03-26 10:00:00 54 mm[Hg] [facility] - diastolic [facility] height 2021-02-26 08:40:00 62.25 [in_i] [facility] weight 2021-02-26 08:40:00 265 [lb_av] [facility] temperature 2021-02-26 08:40:00 97.2 [degF] [facility] bmi 2021-02-26 08:40:00 48.08 kg/m2 [facility] oximetry 2021-02-26 08:40:00 97 % [facility] respiratory rate 2021-02-26 08:40:00 16 /min [facility] blood pressure 2021-02-26 08:40:00 111 mm[Hg] [facility] - systolic [facility] blood pressure 2021-02-26 08:40:00 60 mm[Hg] [facility] - diastolic [facility] BP Diastolic 2020-09-14 00:00:00 68 mm[Hg] [facility] Height 2020-09-14 00:00:00 61 [in_i] [facility] BMI (Body Mass 2020-09-14 00:00:00 48 kg/m2 [facility] BP Systolic 2020-09-14 00:00:00 102 mm[Hg] [facility] Body Weight 2020-09-14 00:00:00 254.2 [lb_av] [facility] Diastolic 2020-05-31 00:00:00 79 mm[Hg] [facility] Height 2020-05-31 00:00:00 61 [in_i] [facility] BMI (Body Mass 2020-05-31 00:00:00 49.3 kg/m2 [facility] BP Systolic 2020-05-31 00:00:00 116 mm[Hg] [facility] Body Weight 2020-05-31 00:00:00 260.7 [lb_av] [facility] BP Diastolic 2020-03-07 00:00:00 66 mm[Hg] [facility] Height 2020-03-07 00:00:00 61 [in_i] [facility] BMI (Body Mass 2020-03-07 00:00:00 49.4 kg/m2 [facility] BP Systolic 2020-03-07 00:00:00 115 mm[Hg] [facility] Body Weight 2020-03-07 00:00:00 261.5 [lb_av] [facility] Systolic (mm Hg) 2021-04-23 16:18:00 Andres Villaseñor Diastolic (mm Hg) 2021-04-23 16:18:00 [facility] Heart Rate 2021-04-23 16:18:[address] [facility] Respitory Rate 2021-04-23 16:18:00 [facility] Height 2021-04-23 16:18:00 154.94 cm [facility] Weight 2021-04-23 16:18:00 [facility] BMI Calculated 2021-04-23 16:18:00 [facility] Systolic (mm Hg) 2021-03-22 18:19:00 Andres [facility] Diastolic (mm Hg) 2021-03-22 18:19:00 [facility] Heart Rate 2021-03-22 18:19:00 [facility] Respitory Rate 2021-03-22 18:19:00 [facility] Height 2021-03-22 18:19:00 154.94 cm [facility] Weight 2021-03-22 18:19:00 [facility] BMI Calculated 2021-03-22 18:19:00 [facility] Systolic (mm Hg) 2021-02-21 18:59:00 Andres [facility] Diastolic (mm Hg) 2021-02-21 18:59:00 [facility] Heart Rate 2021-02-21 18:59:00 [facility] Respitory Rate 2021-02-21 18:59:00 [facility] Height 2021-02-21 18:59:00 154.94 cm [facility] Weight 2021-02-21 18:59:00 [facility] BMI Calculated 2021-02-21 18:59:00 [facility] Procedures Procedure Date / Time Performing Clinician Source Performed PATIENT AGREEMENTS AND 2022-10-10 05:01:00 Doctor Unassigned, [facility] CONTRACTS [facility] REFERRAL- REQUEST/RESPONSE 2022-09-24 05:01:00 Doctor Unarishabh , [facility] PATIENT FINANCIAL 2022-08-19 15:42:43 Doctor Eliza, [facility] POLICY [facility] SLEEP STUDY DATA REPORT 2022-07-23 06:01:00 Doctor Unasskaran, [facility] ASSIGNMENT OF BENEFITS 2022-07-08 18:55:01 Doctor Unassigned, [facility] EXTERNAL FIT DNA 2022-06-21 10:34:00 Doctor Unassigned, [facility] PULMONARY FUNCTION REPORT 2022-05-24 06:01:00 Doctor Unassigned, [facility] EXTERNAL PROVIDER - ADC 2022-03-05 05:01:00 Doctor Unassigned, [facility] REFERRAL [facility] ASSIGNMENT OF BENEFITS 2022-01-10 15:14:06 [facility] MAGNESIUM 2021-11-28 15:33:00 Araceli, [facility] BASIC METABOLIC PANEL (NA, 2021-11-28 15:33:00 Miley [place], [facility] K, CL, CO2, GLUCOSE, BUN, [facility] CREATININE, [place]) N-TERMINAL PRO-BNP 2021-11-28 15:33:00 Araceli, [facility] [place] Defibrillation using [facility] automated external cardiac defibrillator Automatic Defibrillator [facility] Encounters Start End Encounter Admission Attending Care Care Encounter Source Date/Time Date/Time Type Type Clinicians Facility Department ID 2022-12-05 Outpatient [facility], STLMLC STLMLC [id number] Common 13:29:00 Aissatou [id number] [facility] 2022-10-07 Outpatient Harrison, STLMLC STLMLC [id number] Common 08:14:00 Aissatou 99837 [facility] 2022-09-18 Outpatient Harrison, STLMLC STLMLC [id number] Common 11:42:00 Aissatou 25415 [facility] 2022-09-16 Outpatient Harrison, STLMLC STLMLC [id number] Common 15:44:00 Aissatou 86394 [facility] 2022-06-18 Outpatient Harrison, STLMLC STLMLC [id number] Common 12:01:00 Aissatou 35270 [facility] 2022-05-28 Outpatient Harrison, STLMLC STLMLC [id number] Common 08:32:00 Aissatou 85009 [facility] 2021-11-30 Outpatient Harrison, STLMLC STLMLC [id number] Common 07:54:00 Aissatou [facility] 2021-09-05 Outpatient Harrison, STLMLC STLMLC [id number] Common 10:56:01 Aissatou [facility] 2021-06-13 Outpatient Harrison, STLMLC STLMLC [id number] Common 14:38:32 Aissatou [facility] 2021-06-13 Outpatient Harrison, STLMLC STLMLC [id number] Common 14:35:38 Aissatou [facility] 2021-06-13 Outpatient Harrison, STLMLC STLMLC [id number] Common 14:01:32 Aissatou [facility] 2021-06-13 Outpatient Harrison, STLMLC STLMLC [id number] Common 13:44:49 Aissatou 74353 [facility] 2021-06-13 Outpatient Harrison, STLMLC STLMLC [id number] Common 13:27:14 Aissatou 29597 [facility] 2021-06-13 Outpatient Harrison, STLMLC STLMLC [id number] Common 12:57:09 Aissatou 48767 [facility] 2021-06-13 Outpatient Harrison, STLMLC STLMLC [id number] Common 12:25:50 Aissatou 49494 [facility] 2021-06-13 Outpatient Millender, STLMLC STLMLC [id number] Common 11:42:20 Aleah 99167 [facility] 2021-06-13 Outpatient Millender, STLMLC STLMLC [id number] Common 11:39:36 Aleah 11122 [facility] 2021-06-13 Outpatient Millender, STLMLC STLMLC [id number] Common 11:24:42 Aleah 57117 [facility] 2021-06-13 Outpatient Millender, STLMLC STLMLC [id number] Common 11:08:27 Aleah 40511 [facility] 2022-12-23 2022-12-23 Outpatient R MORRISON [facility] [id number] Univers 13:40:00 13:40:00 VAUGHN ity [facility] 2022-12-09 2022-12-09 [facility] [id number] Univers 13:40:00 13:40:00 GIOVANY [facility] 2022-11-12 2022-11-12 Outpatient [facility] [id number] Univers 09:30:00 09:30:00 SOPHIE [facility] 2022-11-12 2022-11-12 Refill Kaela CHILDERS 1.2.840.114 [id number] Univers 00:00:00 00:00:00 Colton, PEDIATRIC 350.1.13.10 ity of [place] [id number] [facility] PRIMARY 059 [facility] 2022-10-10 2022-10-10 Office Papa [facility] 1.2.840.114 [id number] Univers 11:15:00 11:15:00 Visit Mireya SPECIALTY 350.1.13.10 ity of [place] CENTER AT [phone] Sc [address] 2022-10-10 2022-10-10 Outpatient William ANGEL [facility] [id number] Univers 11:15:00 11:13:57 MIREYA ity [facility] 2022-10-10 2022-10-10 Orders Doctor DEL TORO 1.2.840.114 [id number] Univers 00:00:00 00:00:00 Only Unassigned, BROOK 350.1.13.10 ity of [place] [facility] 4.2.7.2.686 Arnulfo as [phone] [facility] [address] 2022-10-03 2022-10-03 Office Ju MEIRVING 1.2.840.114 [id number] Univers 09:40:00 10:16:13 Visit Kadi SANTANA 350.1.13.10 ity of [place] [id number] Sc dicnm NAL 059 [facility] 2022-10-03 2022-10-03 Outpatient R AZEEM DODDMARCODARIAN [facility] [id number] Univers 09:40:00 10:16:13 [facility] 2022-10-02 2022-10-02 Office James [facility] 1.2.548.739 [id number] Univers 11:30:00 12:00:00 Visit Nenautradha SANTANA 350.1.13.10 ity of [facility] 4.2.7.2.[place] [id number] [facility] 085 [facility] 2022-10-02 2022-10-02 Outpatient R SIGIFREDO RAMIREZ [facility] [id number] Univers 11:30:00 11:30:00 SIGIFREDO RAMIREZ [facility] 2022-10-01 2022-10-01 Telephone ItRailRunner [facility] 1.2.840.11 4 [id number] Univers 00:00:00 00:00:00 Paullina, Y HEALTH 350.1.13.10 ity of [place] CLINICS [place].2.[place] [id number] [address] 2022-09-30 2022-09-30 Telephone Rosangela SOLIS 1.2.840.114 [id number] Univers 00:00:00 00:00:00 , Marychuy ORTIZ 350.1.13.10 ity of [place] [id number] [facility] [address] 2022-09-30 2022-09-30 Telephone IturrizNotrefamille.com- UNIVERSIT 1.2.840.11 4 [id number] Univers 00:00:00 00:00:00 Colton, Y HEALTH 350.1.13.10 ity of [place] CLINICS 4.2.7.2.[place] [id number] [address] 2022-09-30 2022-09-30 Telephone IturrMediaocean UNIVERSIT 1.2.840.11 4 [id number] Univers 00:00:00 00:00:00 Colton [facility] 350.1.13.10 ity of [place] [facility] 4.2.7.2.686 [place] [id number] [facility] [address] 2022-09-27 2022-09-27 Title I Director Lab, Ang - Db [facility] 1.2.840.1 14 [id number] Univers 15:30:00 15:45:00 Visit Andrews Perla [facility] 350.1.13. 10 ity of [place] 4.2.7.2.686 Arnulfo as BENJAMIN?BLEA [phone] [address] MEDICAL OFFICE BUILDING 2022-09-27 2022-09-27 Outpatient R PANANDREWS MARTIN [facility] [id number] Univers 14:40:00 15:20:20 PANANDREWS [facility] 2022-09-27 2022-09-27 Office Pan [facility] 1.2.840.114 [id number] Univers 14:40:00 15:20:20 Visit [facility] 350.1.13.10 ity of [place] 4.2.7.2.686 Arnulfo as BENJAMIN?BLEA [phone] [address] MEDICAL OFFICE BUILDING 2022-09-24 2022-09-24 Orders Doctor ALVERTO 1.2.840.114 [id number] Univers 00:00:00 00:00:00 Only Unassigned, BROOK 350.1.13.10 ity of [place] [facility] 4.2.7.2.686 Arnulfo as [phone] [address] 2022-09-23 2022-09-23 Telephone Pan [facility] 1.2.840.114 [id number] Univers 00:00:00 00:00:00 [facility] 350.1.13.10 ity of [facility] 4.2.7.2.686 Arnulfo as BENJAMIN?BLEA [phone] [address] MEDICAL OFFICE BUILDING 2022-09-11 2022-09-11 Telephone [facility] 1.2.840.114 [id number] Univers 00:00:00 00:00:00 Colton, HEALTH 350.1.13.10 ity of [place] J[place]IAN [id number] [facility] MEDICAL [address] OFFICE BUILDING 2022-08-30 2022-08-30 Telephone Rosangela SOLIS 1.2.840.114 [id number] Univers 00:00:00 00:00:00 , Marychuy CLEMENTEY 350.1.13.10 ity of [place].2.[place] [id number] [facility] [address] 2022-08-28 2022-08-28 Outpatient SOURAV CORONADO [facility] [id number] [address] [place] 09:20:00 09:20:00 [id number] [facility] 2022-08-19 2022-08-19 Office [facility] 1.2.026.636 [id number] Univers 11:30:00 11:30:00 Visit Afaq CLYDE 350.1.13.10 i ty of [facility] 4.2.7.2.[place] PROFESS[place] [phone] Sc dical [facility]9 Branch BUILDING 2022-08-19 2022-08-19 Outpatient R JOHNATHAN [facility] [id number] Univers 11:30:00 11:14:01 AFAQ ity of [facility] 2022-08-19 2022-08-19 Orders Doctor ALVERTO 1.2.840.114 [id number] Univers 00:00:00 00:00:00 Only Unassigned, BROOK 350.1.13.10 ity of [place] HOSPITAL 4.2.7.2.686 Arnulfo as [phone] [facility] [address] 2022-08-18 2022-08-18 Refill Kaela CHILDERS 1.2.840.114 10 [id number] Univers 00:00:00 00:00:00 Colton, PEDIATRIC 350.1.13.10 ity of [place] [id number] [facility] PRIMARY [address] CARE CLINIC 2022-08-07 2022-08-07 Outpatient R SIGIFREDO RAMIREZ [facility] [id number] Univers 09:30:00 09:30:00 LANIRASHAWNNENAFAHAD ity [facility] 2022-08-03 2022-08-03 Refill Kaela CHILDERS 1.2.840.114 10 [id number] Univers 00:00:00 00:00:00 [place], PEDIATRIC 350.1.13.10 ity of [place] [phone] [address] 2022-07-23 2022-07-23 Title I Director 1, [facility] Sleep Lab Bed [facility] 1. 2.840.114 [id number] Univers 20:00:00 22:30:00 Visit Sigifredo Ramirez 350.1.13. 10 ity of [place] 4.2.7.2.[place] [phone] [place] [address] [address] 2022-07-23 2022-07-23 Outpatient R NENA RAMIREZWIRadha [facility] [id number] Univers 20:00:00 20:00:00 MARKGRAHAM NENAFAHAD ity [facility] 2022-07-23 2022-07-23 Orders Doctor ALVERTO 1.2.840.114 [id number] Univers 00:00:00 00:00:00 Only Unassigned, BROOK 350.1.13.10 ity of [place] HOSPITAL 4.2.7.2.686 Arnulfo as [phone] [facility] [address] 2022-07-15 2022-07-15 Telephone Kaela CHILEDRS 1.2.840.114 [id number] Univers 00:00:00 00:00:00 [place], PEDIATRIC 350.1.13.10 ity of [place] [id number] [address] 2022-07-09 2022-07-09 Letter Feliberto, [facility] 1.2.840.114 [id number] Univers 00:00:00 00:00:00 (Out) General HEALTH 350.1.13.10 it y of Cardiology CLEAR 4.2.7.2.686 T kaleigh JULIAN [phone] [place] [address] Branch OFFICE BUILDING 2022-07-08 2022-07-08 Office Itsantiago CHILDERS 1.2.840.114 [id number] Univers 13:00:00 13:30:00 Visit [place], PEDIATRIC 350.1.13.10 ity of [place] [id number] [facility] PRIMARY 9 Branch CARE CLINIC 2022-07-08 2022-07-08 Outpatient R RODRIGO- [facility] [id number] Univers 13:00:00 13:00:00 COLTON, ity of [facility] 2022-07-08 2022-07-08 Orders Doctor ALVERTO 1.2.840.114 [id number] Univers 00:00:00 00:00:00 Only Unassigned, BROOK 350.1.13.10 ity of [place] HOSPITAL 4.2.7.2.686 [place] as [phone] [place] [address] [address] 2022-07-08 2022-07-08 Telephone ItRailRunner UNIVERSDigify 1.2.840.11 4 [id number] Univers 00:00:00 00:00:00 [place], HEALTH 350.1.13.10 ity of [facility] 4.2.7.2.[place] [phone] [address] 2022-06-06 2022-06-06 (TEL) [facility] [employer] [id number] Co mmon 00:00:00 00:00:00 [facility] 2022-06-05 2022-06-05 (TEL) STLC STLMLC [id number] Co mmon 00:00:00 00:00:00 [facility] 2022-05-30 2022-05-30 Telephone Iturrizaga- UNIVERSIT 1.2.840.11 4 [id number] Univers 00:00:00 00:00:00 Colton Y HEALTH 350.1.13.10 ity of [facility] 4.2.7.2.[place] [id number] [address] 2022-05-30 2022-05-30 [facility] 1.2.840.114 [id number] Univers 00:00:00 00:00:00 Colton Y HEALTH 350.1.13.10 ity of [place] CLINICS 4.2.7.2.[place] [id number] [facility] [address] 2022-05-30 2022-05-30 [facility] [id number] Co mmon 00:00:00 00:00:00 VISIT Spirit ESTAB PT - CHI LEVEL 4 [facility] 2022-05-30 2022-05-30 SUB ANNUAL [employer] [id number] Common 00:00:00 00:00:00 MCR Spirit WELLNESS - CHI VISIT [facility] 2022-05-29 2022-05-29 Telephone Kaela CHILDERS 1.2.840.114 [id number] Univers 00:00:00 00:00:00 [place], PEDIATRIC 350.1.13.10 ity of [place] 4[place]2.[place].2.[place] [id number] [facility] PRIMARY [address] CARE CLINIC 2022-05-24 2022-05-24 Title I Director Testing, [facility] UNIVERSIT 1.2.840.114 [id number] Univers 09:30:00 11:31:11 Visit Miguel Ford [facility] 350.1.13. 10 ity of CLINICS 4.2.7.2.[place] [id number] [facility] [address] 2022-05-24 2022-05-24 Outpatient R LILIANA [facility] [id number] Univers 09:30:00 09:30:00 MIGUEL ity of [facility] 2022-05-24 2022-05-24 Orders Doctor DEL TORO 1.2.840.114 [id number] Univers 00:00:00 00:00:00 Only Unassigned, BROOK 350.1.13.10 ity of [place] HOSPITAL 4.2.7.2.686 Arnulfo as [id number] [facility] [address] 2022-04-26 2022-04-26 [facility] [id number] Univers 09:30:00 09:30:00 jacy SEGURA [facility] 2022-04-10 2022-04-10 Office James [facility] 1.2.491.830 [id number] Univers 11:00:00 11:30:00 Visit Sigifredo SANTANA 350.1.13.10 ity of [place].7.2.[place] [id number] [address] 2022-04-10 2022-04-10 Outpatient R SIGIFREDO RAMIREZ [facility] [id number] Univers 11:00:00 11:00:00 SIGIFREDO RAMIREZ [facility] 2022-04-03 2022-04-03 Out[facility] [id number] Univers 08:17:34 23:59:00 jacy SEGURA [facility] 2022-03-21 2022-03-21 Telephone [facility] 1.2.840.11 4 [id number] Univers 00:00:00 00:00:00 [facility] 350.1.13.10 ity [facility] 4.2.7.2.[place] [id number] [facility] [address] 2022-03-19 2022-03-19 Outpatient [facility] [id number] Univers 09:00:00 23:59:00 jacy SEGURA [facility] 2022-03-06 2022-03-06 Outpatient R SIGIFREDO RAMIREZ [facility] [id number] Univers 14:00:00 14:00:00 SIGIFREDO RAMIREZ [facility] 2022-03-05 2022-03-05 Orders Doctor DEL TORO 1.2.840.114 [id number] Univers 00:00:00 00:00:00 Only Unassigned, BROOK 350.1.13.10 ity of [place] [facility] 4.2.7.2.686 Arnulfo as [phone] [facility] [address] 2022-03-04 2022-03-04 (TEL) STLMLC STLMLC [id number] Co mmon 00:00:00 00:00:00 [facility] 2022-03-04 2022-03-04 (TEL) STLMLC STLMLC [id number] Co mmon 00:00:00 00:00:00 [facility] 2022-02-25 2022-02-25 Outpatient [facility] [id number] [facility] 13:30:00 13:53:55 COLTON, ity of [place] [facility] 2022-02-25 2022-02-25 Office Kaela CHILDERS 1.2.840.114 [id number] Univers 13:30:00 13:53:55 Visit [place], PEDIATRIC 350.1.13.10 ity of [place] [id number] [address] 2022-02-25 2022-02-25 Telephone Kaela CHILDERS 1.2.840.[id number] [facility] 00:00:00 00:00:00 Paullina, PEDIATRIC 350.1.13.10 ity of [place] [id number] [address] 2022-02-13 2022-02-13 (TEL) STLMLC STLMLC [id number] Co mmon 00:00:00 00:00:00 [facility] 2022-02-06 2022-02-06 (TEL) STLMLC STLMLC [id number] Co mmon 00:00:00 00:00:00 [facility] 2022-01-24 2022-01-24 OFFICE STLMLC STLMLC [id number] Co mmon 00:00:00 00:00:00 VISIT [facility] LEVEL 4 [facility] 2022-01-23 2022-01-23 (TEL) STLMLC STLMLC [id number] Co mmon 00:00:00 00:00:00 [facility] 2022-01-11 2022-01-11 (TEL) STLMLC STLMLC [id number] Co mmon 00:00:00 00:00:00 [facility] 2022-01-10 2022-01-10 Outpatient R RADIOLOGY [facility] [id number] Univers 10:15:43 23:59:00 ity of [facility] 2022-01-10 2022-01-10 Hospital Radiology [facility] 1.2.840.114 [id number] Univers 10:15:43 23:59:00 Encounter MAX 350.1.13.10 ity of [place].2.[place] [id number] [facility] [address] 2022-01-10 2022-01-10 Title I Director Arlette, Lena Lab Main [facility] 1.2.8 40.114 [id number] Univers 11:15:00 11:30:00 Visit Milo Bennett 350.1.13.10 ity of [place].2.[place] [facility] [id number] Sc dical [facility] [address] BUILDING 2022-01-10 2022-01-10 Orders Doctor ALVERTO 1.2.840.114 [id number] Univers 00:00:00 00:00:00 Only Unassigned, BROOK 350.1.13.10 ity of [place] [facility] 4.2.7.2.686 Arnulfo as [phone] [facility] [address] 2022-01-01 2022-01-01 [facility] 1.2.840.114 [id number] Univers 00:00:00 00:00:00 ARACELIS Segura 350.1.13.10 ity of [place].2.[place] [id number] [facility] MEDICAL [address] OFFICE BUILDING 2021-12-19 2021-12-19 Outpatient R RADIOLOGY [facility] RAD [id number] Univers 10:20:00 10:20:00 ity of [facility] 2021-12-04 2021-12-04 Telephone [facility] 1.2.840.11 4 [id number] Univers 00:00:00 00:00:00 Derek Segura 350.1.13.10 ity of [place] CLINICS 4.2.7.2.[place] [id number] [facility] [address] 2021-12-04 2021-12-04 OFFICE [employer] STLC [id number] Co mmon 00:00:00 00:00:00 VISIT Elieser [facility] PT - CHI LEVEL 4 [facility] 2021-11-28 2021-11-28 Title I Director Arlette, Lena Lab Main [facility] 1.2.[id number] [facility] 10:00:00 10:15:00 Visit Wood Roach [place] 3 50.1.13.10 ity of [facility] 4.2.7.2.[place]ESS[place] [id number] [address] 2021-11-28 2021-11-28 Outpatient [facility] [id number] Univers 10:00:00 10:00:00 jacy SEGURA [facility] 2021-11-27 2021-11-27 Telephone Kaela CHILDERS 1.2.840.114 [id number] Univers 00:00:00 00:00:00 [place], PEDIATRIC 350.1.13.10 ity of [place] [id number] [address] 2021-10-31 2021-10-31 (TEL) [facility] [id number] Co mmon 00:00:00 00:00:00 Spirit [facility] 2021-10-19 2021-10-19 Outpatient R PAPA [facility] [id number] Univers 11:00:00 11:00:00 MIREYA louie [facility] 2021-10-18 2021-10-18 Telephone Kaela CHILDERS 1.2.840.114 [id number] Univers 00:00:00 00:00:00 [place], PEDIATRIC 350.1.13.10 ity of [place] [id number] [address] 2021-10-18 2021-10-18 Telephone Kaela CHILDERS 1.2.840.114 [id number] Univers 00:00:00 00:00:00 [place], PEDIATRIC 350.1.13.10 ity of [place] [id number] [address] 2021-09-04 2021-09-04 Outpatient R ABEBA [facility] [id number] Univers 14:00:00 17:37:46 FE ity of [facility] 2021-09-04 2021-09-04 Office [facility] 1.2.840.114 [id number] Univers 14:00:00 17:37:46 Visit Fe SPECIALTY 350.1.13.10 ity of CARE 4[place]2.7.2.[place] CENTER AT [phone] Sc stephanie [address] 2021-09-04 2021-09-04 Orders Doctor ALVERTO 1.2.840.114 [id number] Univers 00:00:00 00:00:00 Only Unassigned, BROOK 350.1.13.10 ity of [place] [facility] 4.2.7.2.686 Arnulfo as [id number] [address] 2021-09-04 2021-09-04 OFFICE [facility] [id number] Co mmon 00:00:00 00:00:00 VISIT Spirit ESTAB PT - CHI LEVEL 4 [facility] 2021-09-03 2021-09-03 Telephone AngieWeVorce [place] 1.2.840.114 [id number] Univers 00:00:00 00:00:00 [place], PEDIATRIC 350.1.13.10 ity of [place] [id number] [address] 2021-08-31 2021-08-31 [facility]phone [facility] 1.2.840.114 [id number] Univers 00:00:00 00:00:00 Colton HEALTH 350.1.13.10 ity of [place] [id number] [facility] [address] OFFICE BUILDING 2021-08-29 2021-08-29 Outpatient R SARAI, [facility] [id number] Univers 09:00:00 10:28:37 MANDI [facility] 2021-08-29 2021-08-29 Nurse Nurse, Alexander CHILDERS 1.2.84 0.114 [id number] Univers 09:00:00 09:20:00 Visit Unknown, Attending PEDIATRIC 350.1.13. 10 ity of [place].2.[place] [id number] [facility] 314 [facility] 2021-08-29 2021-08-29 Outpatient R DANYELLE, [facility] [id number] Univers 09:00:00 09:00:00 ATTENDING [facility] 2021-08-24 2021-08-24 Outpatient [facility] [id number] Univers 16:30:00 16:50:59 COLTON derek [facility] 2021-08-24 2021-08-24 Office Iturradrian- [place] 1.2.840.114 [id number] Univers 16:30:00 16:50:59 Visit Col[place], PEDIATRIC 350.1.13.10 ity of [place] [phone] [place] [id number] [facility] 2021-07-30 2021-07-30 (TEL) [facility] [id number] Co mmon 00:00:00 00:00:00 [facility] 2021-07-24 2021-07-24 Ambulatory nullFlavo MNA [id number] Memoria 16:30:00 16:30:00 Pre-Reg r Neurology 05 l Isael Villaseñor 2021-07-24 2021-07-24 Ambulatory nullFlavo MNA [id number] Memoria 16:30:00 16:30:00 Pre-Reg r Neurology 05 l Isael Villaseñor 2021-07-24 2021-07-24 Outpatient MHIE APPLE [id number] Memoria 10:30:00 10:30:00 05 l [place] 2021-07-24 2021-07-24 Outpatient JEANNIE Villa [facility] [id number] 10:30:00 10:30:00 Regulo Garcia 2021-07-12 2021-07-12 [facility] [id number] Univers 00:00:00 00:00:00 Sendil Suellen SANTANA [id number] ity of [facility] [id number] [id number] Sc dical NAL 059 [facility] 2021-07-06 2021-07-06 [facility] [id number] Univers 00:00:00 00:00:00 Sendil Suellen SANTANA [id number] ity of [facility] [id number] [id number] Sc dical NAL 9 [facility] 2021-07-05 2021-07-05 Outpatient R [facility] [id number] Univers 08:54:58 23:59:00 SENDIL ity of [facility] 2021-07-05 2021-07-05 [facility] [id number] Univers 08:54:58 23:59:00 Encounter Senddaron SANTANA [id number] ity of [facility] [id number] [id number] Sc dical NAL 843 [facility] 2021-07-05 2021-07-05 Outpatient R [facility] [id number] Univers 09:00:00 09:00:00 SENDIL ity [facility] 2021-06-25 2021-06-25 [facility] [id number] Univers 00:00:00 00:00:00 Sendil Suellen SANTANA [id number] ity of [facility] [id number] [id number] Sc dical NAL 9 [facility] 2021-06-19 2021-06-19 [facility] [id number] Univers 14:00:00 14:49:22 Visit Joel SANTANA [id number] ity [facility] [id number] [place] PROFESSIO [id number] Sc dical NAL 059 [facility] 2021-06-19 2021-06-19 [facility] [id number] Univers 14:00:00 14:49:22 SENDIL ity [facility] 2021-06-19 2021-06-19 [facility] [id number] Univers 14:00:00 14:49:22 SENDIL ity [facility] 2021-06-19 2021-06-19 Orders Doctor DEL TORO [id number] Univers 00:00:00 00:00:00 Only Unassigned, BROOK [id number] ity of [facility] [id number] Arnulfo as [id number] [address] 2021-06-05 2021-06-05 OFFICE STLMLC STLMLC [id number] Co mmon 00:00:00 00:00:00 VISIT Spirit ESTAB PT - CHI LEVEL 4 [facility] 2021-06-05 2021-06-05 SUB ANNUAL STLMLC STLMLC [id number] Common 00:00:00 00:00:00 MCR Spirit WELLNESS - CHI VISIT [facility] 2021-05-15 2021-05-15 Outpatient R [facility] [id number] Univers 17:00:00 17:00:00 ity of [facility] 2021-05-14 2021-05-14 (TEL) STLMLC STLMLC [id number] Co mmon 00:00:00 00:00:00 [facility] 2021-05-14 2021-05-14 OFFICE STLMLC STLMLC [id number] Co mmon 00:00:00 00:00:00 VISIT EST Spir it PT LEVEL 3 - [facility] 2021-05-14 2021-05-14 (TEL) STLMLC STLMLC [id number] Co mmon 00:00:00 00:00:00 [facility] 2021-04-23 2021-04-24 Outpatient nullFlavo MNA [id number] Memoria 16:00:00 05:59:59 r Neurology 04 l Isael Villaseñor 2021-04-23 2021-04-24 Outpatient nullFlavo MNA [id number] Memoria 16:00:00 05:59:59 r Neurology 04 l Isael Villaseñor 2021-04-23 2021-04-23 Outpatient Daisy MISCHER MISCHER [id number] 10:00:00 23:59:59 Regulo Garland Garcia 2021-04-23 2021-04-23 Outpatient MHIE MHIE [id number] Memoria 10:00:00 10:00:00 04 radha Villaseñor 2021-03-30 2021-03-30 (TEL) STLMLC STLMLC [id number] Co mmon 00:00:00 00:00:00 [facility] 2021-03-26 2021-03-26 OFFICE STLMLC STLMLC [id number] Co mmon 00:00:00 00:00:00 [facility] - [facility] LEVEL 4 [facility] 2021-03-22 2021-03-23 Outpatient nullFlavo MNA [id number] Memoria 18:00:00 04:59:59 r Neurology 03 l Isael Moranann 2021-03-22 2021-03-23 Outpatient nullFlavo MNA [id number] Memoria 18:00:00 04:59:59 r Neurology 03 l Isael Moranann 2021-03-22 2021-03-22 [id number] 13:00:00 23:59:59 Regulo Lilo Jose 2021-03-22 2021-03-22 Outpatient MHIE MHIE [id number] Memoria 13:00:00 13:00:00 Lilo Villaseñor 2021-03-21 2021-03-21 Ambulatory nullFlavo MNA [id number] Memoria 19:15:00 19:15:00 Pre-Reg r Neurology 02 l [place] 2021-03-212021-03-21 Ambulatory nullFlavo MNA [id number] Memoria 19:15:00 19:15:00 Pre-Reg r Neurology 02 radha Villaseñor 2021-03-21 2021-03-21 Ambulatory nullFlavo MNA [id number] Memoria 15:30:00 15:30:00 Pre-Reg r Neurology 01 radha Villaseñor 2021-03-21 2021-03-21 Ambulatory nullFlavo MNA [id number] Memoria 15:30:00 15:30:00 Pre-Reg r Neurology 01 radha Villaseñor 2021-03-21 2021-03-21 Outpatient MHIE MHIE [id number] Memoria 14:15:00 14:15:00 02 radha Villaseñor 2021-03-21 2021-03-21 Outpatient ARIANNE VillaMISCHER MHMISCHER [id number] 14:15:00 14:15:00 Regulo 02 Jose 2021-03-21 2021-03-21 Outpatient MHIE MHIE [id number] Memoria 10:30:00 10:30:00 01 radha Villaseñor 2021-03-21 2021-03-21 Outpatient LACEY VillaSCHER MHMISCHER [id number] 10:30:00 10:30:00 Regulo 01 Jose 2021-03-13 2021-03-13 (TEL) STLMLC STLMLC [id number] Co mmon 00:00:00 00:00:00 [facility] 2021-03-07 2021-03-07 (TEL) STLMLC STLMLC [id number] Co mmon 00:00:00 00:00:00 [facility] 2021-02-26 2021-02-26 OFFICE STLMLC STLMLC [id number] Co mmon 00:00:00 00:00:00 VISIT [facility] LEVEL 4 [facility] 2021-02-21 2021-02-22 Outpatient nullFlavo MNA [id number] Memoria 18:15:00 04:59:59 r Neurology 00 l Isael Villaseñor 2021-02-21 2021-02-22 Outpatient nullFlavo MNA [id number] Memoria 18:15:00 04:59:59 r Neurology 00 l [place] 2021-02-21 2021-02-21 Outpatient Daisy, [facility] [id number] 13:15:00 23:59:59 Regulo Kenneth Garcia 2021-02-21 2021-02-21 Outpatient MHIE MHIE [id number] Juju 13:15:00 13:15:00 00 l aKsi 2021-01-18 2021-01-18 Outpatient STLMLC STLMLC [id number] Common 00:00:00 00:00:00 [facility] 2020-12-20 2020-12-20 Outpatient STLMLC STLMLC [id number] Common 00:00:00 00:00:00 [facility] 2020-12-01 2020-12-01 Outpatient STLMLC STLMLC [id number] Common 00:00:00 00:00:00 [facility] 2020-11-30 2020-11-30 Outpatient STLMLC STLMLC [id number] Common 00:00:00 00:00:00 [facility] 2020-11-21 2020-11-21 Outpatient STLMLC STLMLC [id number] Common 00:00:00 00:00:00 [facility] 2020-10-18 2020-10-18 Outpatient STLMLC STLMLC [id number] Common 00:00:00 00:00:00 [facility] 2020-10-06 2020-10-06 Outpatient STLMLC STLMLC [id number] Common 00:00:00 00:00:00 [facility] 2020-09-25 2020-09-25 Outpatient STLMLC STLMLC [id number] Common 00:00:00 00:00:00 [facility] 2020-09-15 2020-09-15 Outpatient Yan_W MMG MMG [id number] [place] 07:15:00 07:15:00 [facility] 2020-09-14 2020-09-14 Outpatient Yan_W MMG MMG [id number] [place] 03:44:00 03:44:00 0429 [facility] 2020-09-14 2020-09-14 Outpatient Yan_W MMG MMG [id number] [place] 03:44:00 03:44:00 0430 [facility] 2020-09-14 2020-09-14 SHUN Garcia [place] - [id number] [place] 00:00:00 00:00:00 MD: Ck [facility] [address], [facility], [place]olaryngol [place] [address] , Ph. 2020-09-13 2020-09-13 Outpatient STLMLC STLMLC [id number] Common 00:00:00 00:00:00 [facility] 2020-09-13 2020-09-13 Outpatient STLMLC STLMLC [id number] Common 00:00:00 00:00:00 [facility] 2020-09-08 2020-09-08 Outpatient Yan_W MMG MMG [id number] [place] 02:57:00 02:57:00 0423 [facility] 2020-09-05 2020-09-05 Outpatient STLMLC STLMLC [id number] Common 00:00:00 00:00:00 [facility] 2020-06-01 2020-06-01 Outpatient Yan_W MMG MMG [id number] [place] 09:10:00 09:10:00 0203 [facility] 2020-05-31 2020-05-31 Outpatient Yan_W MMG MMG [id number] [place] 09:49:00 09:49:00 0113 [facility] 2020-05-31 2020-05-31 SHUN Garcia [place] - [id number] [place] 00:00:00 00:00:00 : Ck [facility] [address], [facility], [place] [facility] [address] , Ph. 2020-04-05 2020-04-05 Outpatient Yan_W MMG MMG [id number] [place] 02:30:00 02:30:00 1118 [facility] 2020-03-13 2020-03-13 Outpatient Yan_W MMG MMG [id number] [place] 09:57:00 09:57:00 1031 [facility] 2020-03-13 2020-03-13 Outpatient Yan_W MMG MMG [id number] [place] 09:56:00 09:56:00 1026 [facility] 2020-03-07 2020-03-07 Outpatient Yan_W MMG MMG [id number] [place] 02:52:00 02:52:00 1020 [facility] 2020-03-07 2020-03-07 Outpatient Yan_W MMG MMG [id number] [place] 02:52:00 02:52:00 1025 Medical Group 2020-03-07 2020-03-07 Mansoor Lemus, MMG [place] - [id number] [place] 00:00:00 00:00:00 MD: Ck [facility] [address], [facility], [place] [facility] [address] , Ph. 2020-02-29 2020-02-29 Outpatient Yan_W MMG [facility] [id number] [place] 12:29:00 12:29:00 1013 Medical Group 2019-12-27 2019-12-27 [facility] [id number] Common 11:15:00 11:15:[address] [facility] 2019-12-27 2019-12-27 [facility] [id number] Common 09:19:00 09:19:00 t [facility] Spir it Road [facility] 2019-10-26 2019-10-26 [facility] [id number] Common 08:15:00 08:15:00 t [facility] Spir it Road [facility] 2019-10-20 2019-10-20 [facility] [id number] Common 23:40:00 23:40:[address] [facility] it Road [facility] 2019-10-20 2019-10-20 [facility] [id number] Common 14:40:00 14:40:[address] [facility] 2019-08-19 2019-08-19 [facility] [id number] Common 11:54:00 11:54:[address] [facility] 2019-07-25 2019-07-25 [facility] [id number] Common 13:11:00 13:11:[address] [facility] 2019-07-20 2019-07-20 [facility] [id number] Common 11:00:00 11:00:[address] [facility] 2019-04-24 2019-04-24 [facility] [id number] Common 03:26:00 03:26:[address] [facility] 2019-04-20 2019-04-20 [facility] [id number] Common 09:40:00 09:40:[address] [facility] 2019-03-22 2019-03-22 Outpatient zzzAmy zzzAmy [id number] Common 14:55:00 14:55:00 Januszler Yanick Sp loren DO [facility] 2019-01-19 2019-01-19 [facility] [id number] Common 14:40:00 14:40:[address] [facility] 2018-11-04 2018-11-04 [facility] [id number] Common 12:03:00 12:03:[address] [facility] 2018-08-26 2018-08-26 [facility] [id number] Common 11:20:00 11:20:[address] [facility] 2018-08-14 2018-08-14 [facility] [id number] Common 14:30:00 14:30:[address] [facility] 2018-08-03 2018-08-03 [facility] [id number] Common 12:32:00 12:32:[address] [facility] 2018-06-01 2018-06-01 [facility] [id number] Common 10:15:00 10:15:[address] [facility] 2018-03-02 2018-03-02 [facility] [id number] Common 09:00:00 09:00:[address] [facility] 2018-01-30 2018-01-30 [facility] [id number] Common 11:30:00 11:30:[address] [facility] 2018-01-20 2018-01-20 [facility] [id number] Common 09:46:00 09:46:[address] [facility] 2018-01-13 2018-01-13 [facility] [id number] Common 10:00:00 10:00:00 [facility] 2017-12-25 2017-12-25 [facility] [id number] Common 10:56:00 10:56:[address] [facility] 2017-12-09 2017-12-09 [facility] [id number] Common 21:03:00 21:03:[address] [facility] 2017-12-09 2017-12-09 [facility] [id number] Common 09:45:00 09:45:[address] [facility] 2017-12-03 2017-12-03 [facility] [id number] Common 10:45:00 10:45:[address] [facility] 2017-09-05 2017-09-05 Outpatient Tiffanie Morenot [id number] Common 16:00:00 16:00:00 [facility] 2017-07-11 2017-07-11 Outpatient Yahaira GRANGERNA, [facility] [id number] 17:58:00 17:58:00 [facility] 2015-08-10 2015-08-10 Outpatient SOURAV CORONADO [facility] [id number] [place] 17:02:00 17:02:00 [id number] [facility] 2015-04-20 2015-04-21 Outpatient SOURAV CORONADO [facility] [id number] [place] 05:46:00 13:55:00 [id number] [facility] 2015-04-03 2015-04-03 Outpatient SOURAV CORONADO [facility] [id number] [place] 09:00:00 09:00:00 [id number] [facility] 2014-12-12 2014-12-12 Outpatient SOURAV CORONADO [facility] [id number] [place] 10:22:00 10:22:00 [id number] [facility] 2014-11-23 2014-11-23 Outpatient SOURAV CORONADO [facility] [id number] [place] 16:15:00 16:15:00 [id number] [facility] 2014-08-09 2014-08-09 Outpatient SOURAV CORONADO [facility] [id number] [place] 12:50:00 12:50:00 [id number] [facility] Results Test Description Test Time Test Comments Results Result Comments Source EXTERNAL FIT DNA 2022-06-21 10:34:00 Test Item Value Reference Range Interpretation Comme nts CHENCHO (test code = Test Result Negative Negative ? 06/21/2022 4:34 AM TECHNOLOGIST INFECTIOUS DISEASE EXACT CHENCHOCircleBuilder (CLIA #:[id number]) ?Comment: Fo und in Care EveryWhere/Epic. 05/30/2022 Community Orders [facility] [address] [facility] [address]? [place] [address]? Aissatou Tapia NP? [address] [facility]? [place] [address]? ? Colon cancer screening (Pr imary Dx) [...] w ith both Cologuard and colonoscopy. (Tito Jauregui. et al, N Engl J Med 2014;370(14):5636-8632) The normal value (reference ra nge) for this assay is negative. COLOGUARD RE-SCREENING RECOMME NDATION: Periodic colorectal cancer screening is an important p art of preventive healthcare for asymptomatic individuals at average risk for colorectal cancer. ?Following a negative [place] guard result, the [place] Cancer Society and U.S. Multi-Soc iety Task Force screening guidelines recommend a Cologuard re-sc reening interval of 3 years. References: [place] Cancer Socie ty Guideline for Colorectal Cancer Screening: https://www.cancer.org/cancer/mzcnj-ywvfgf-npmsnu/dete ction-diagn osis-staging/acs-recommendations.html.; Curtis CARRILLO, Enzo CR, Trisha GarciaK, Colorectal Cancer Screening: Recommendati ons for Physicians and Patients from the U.S. Multi-Society Ta sk Force on Colorectal Cancer Screening , Am J Gastroenterology 20 17; 112:7556-5265. Lab Normal Interpretation (test code = 47140-3) [facility] (35726)(NA, K, CL, CO2, GLUCOSE, BUN, CREATININE, CA)2021-11-28 17:43:49 Test Item Value Reference Range Interpretation Comments NA (test code = 141 mmol/L 135-145 3813678084) K (test code = 3.6 mmol/L 3.5-5 3965520983) CL (test code = 104 mmol/L 98-108 4693123382) CO2 TOTAL (test code = 28 mmol/L 23-31 7406365141) AGAP (test code = 2-16 9057787437) BUN (test code = 15 mg/dL 7-23 6747770134) GLUCOSE (test code = 238 mg/dL 70-110 H 4379047594) CREATININE (test code = 0.52 mg/dL 0.5-1.04 1609064376) CALCIUM (test code = 8.6 mg/dL 8.6-10.6 0140647078) eGFR (test code = mL/min/1.73m2 2481955855) CHENCHO (test code = CHENCHO) Association of [...] tests). Lab Interpretation Abnormal (test code = 46458-9) [facility] YNE-IQG6204-12-13 17:36:04 Test Item Value Reference Range Interpretation Comments NT-proBNP (test code 977 pg/mL See_Comment H [Autom ated = [id number]) message] The system which generated this result transmitted reference range : <=125. The reference range was not used to interpret this result as normal/abnormal . CHENCHO (test code = CHENCHO) Biotin has been reported to cause a negative bias, interpret results relative to patient's use of biotin. Lab Interpretation Abnormal (test code = 49179-2) [facility]2022-07-13 17:29:44 Test Item Value Reference Range Interpretation Comments MAGNESIUM (test code = 0640843480) 1.8 mg/dL 1.7-2.4 Lab Interpretation (test code = Normal 91148-4) [facility]woodHEMO[facility] [id number] 00:00:00 Test Item Value Reference Range Interpretation Comments A1C (test code = 4548-4) 6.3 HEMOGLOBIN [id number] 00:00:00 Test Item Value Reference Range Interpretation Comments A1C (test code = 4548-4) 6.3 NPHUPTEDKO7261-39-06 12:55:00 Test Item Value Reference Range Interpretation Comments Hct (test code = Hct) 37.8 35.0-45.0 [facility]tfidsfZPNCOIDSGQ5903-62-56 12:55:00 Test Item Value Reference Range Interpretation Comments Eosinophils # (test code = Eosinophils 72 15-500 #) [facility]aginawFeztovyDZZCUXXSOU1358-91-02 12:55:00 Test Item Value Reference Range Interpretation Comments Basophils # (test code 29 See_Comment [Aut omated message] The = Basophils #) system which generated this result tra nsmitted reference range : <=200. The reference r brice was not used to int erpret this result as normal/abnormal . [facility]aginawKdembreSKAWZBAMOD8960-80-83 12:55:00 Test Item Value Reference Range Interpretation Comments Segs (test code = Segs) 65.4 [facility]awPtaxbybCFPLIUDRRV0428-15-69 12:55:00 Test Item Value Reference Range Interpretation Comments Lymphocytes (test code = Lymphocytes) 25.2 [facility]aginawBpiugmrWJWZKGCSTS3309-79-98 12:55:00 Test Item Value Reference Range Interpretation Comments Monocytes (test code = Monocytes) 7.3 [facility] CenterUzkghodKLCRPQFXKM0834-06-44 12:55:00 Test Item Value Reference Range Interpretation Comments Eosinophils (test code = Eosinophils) 1.5 [facility] CenterRaydlvnMYUVVTGEFK2170-46-49 12:55:00 Test Item Value Reference Range Interpretation Comments Basophils (test code = Basophils) 0.6 [place] 316741-10-07 12:55:00 Test Item Value Reference Range Interpretation Comments Sed Rate (test code = Sed Rate) [address] [facility] [address] HospitalWfaomuhXQEUOTDSDJ6498-31-61 12:55:00 Test Item Value Reference Range Interpretation Comments C-REACTIVE PROTEIN (test code = 2.9 C-REACTIVE PROTEIN) [place] 316741-10-07 12:55:00 Test Item Value Reference Range Interpretation Comments MCV (test code = MCV) 84.0 80.0-100.0 [facility]2021-10-07 12:55:00 Test Item Value Reference Range Interpretation Comments Vitamin B12 Lvl (test code = Vitamin 171 295-5230 B12 Lvl) [facility]2021-10-07 12:55:00 Test Item Value Reference Range Interpretation Comments Glucose Lvl (test code = Glucose Lvl) 151 65-[address] [facility]2021-10-07 12:55:00 Test Item Value Reference Range Interpretation Comments BUN (test code = BUN) 17 7-25 [place] 316741-10-07 12:55:00 Test Item Value Reference Range Interpretation Comments MCH (test code = MCH) 26.9 pg 27.0-33.[address] [facility]2021-10-07 12:55:00 Test Item Value Reference Range Interpretation Comments Creatinine Lvl (test code = Creatinine 0.49 0.50-1.05 Lvl) [facility]2021-10-07 12:55:00 Test Item Value Reference Range Interpretation Comments eGFR NON-AFR. TONGAN (test code = 107 eGFR NON-AFR. TONGAN) [facility]2021-10-07 12:55:00 Test Item Value Reference Range Interpretation Comments eGFR (test code = eGFR 124 ) [facility]2021-10-07 12:55:00 Test Item Value Reference Range Interpretation Comments B/C Ratio (test code = B/C Ratio) 35 6-[address] [facility]2021-10-07 12:55:00 Test Item Value Reference Range Interpretation Comments Sodium Lvl (test code = Sodium Lvl) 140 135-[address] [facility]2021-10-07 12:55:00 Test Item Value Reference Range Interpretation Comments Potassium Lvl (test code = Potassium 4.0 3.5-5.3 Lvl) [place] 951291-10-07 12:55:00 Test Item Value Reference Range Interpretation Comments Chloride Lvl (test code = Chloride Lvl) 105 98-[address] [facility]2021-10-07 12:55:00 Test Item Value Reference Range Interpretation Comments CO2 (test code = CO2) 29 20-[address] [facility]2021-10-07 12:55:00 Test Item Value Reference Range Interpretation Comments Calcium Lvl (test code = Calcium Lvl) 8.7 8.6-10.4 [place] 951291-10-07 12:55:00 Test Item Value Reference Range Interpretation Comments Total Protein (test code = Total 6.8 6.1-8.1 Protein) [facility]awDzmtxxzEIJWDEDIVL4507-17-02 12:55:00 Test Item Value Reference Range Interpretation Comments MCHC (test code = MCHC) 32.0 32.0-36.[address] [facility]2021-10-07 12:55:00 Test Item Value Reference Range Interpretation Comments Albumin Lvl (test code = Albumin Lvl) 3.7 3.6-5.[address] [facility]2021-10-07 12:55:00 Test Item Value Reference Range Interpretation Comments Globulin (test code = Globulin) 3.1 1.9-3.7 [place] 951291-10-07 12:55:00 Test Item Value Reference Range Interpretation Comments A/G Ratio (test code = A/G Ratio) 1.2 1.0-2.[address] [facility]2021-10-07 12:55:00 Test Item Value Reference Range Interpretation Comments Bili Total (test code = Bili Total) 0.6 0.2-1.2 [place] 951291-10-07 12:55:00 Test Item Value Reference Range Interpretation Comments Alk Phos (test code = Alk Phos) 59 37-[address] [facility]2021-10-07 12:55:00 Test Item Value Reference Range Interpretation Comments ASPARTATE TRANSAMINASE (test code = 18 10-35 ASPARTATE TRANSAMINASE) [facility]2021-10-07 12:55:00 Test Item Value Reference Range Interpretation Comments ALANINE AMINOTRANSFERASE (test code = 23 6-29 ALANINE AMINOTRANSFERASE) [facility] CenterNbcqtavJIHSJUXDHL8573-64-72 12:55:00 Test Item Value Reference Range Interpretation Comments WBC X 10x3 (test code = WBC X 10x3) 4.8 3.8-10.8 [place] 316741-10-07 12:55:00 Test Item Value Reference Range Interpretation Comments RBC X 10x6 (test code = RBC X 10x6) 4.50 3.80-5.10 [place] [address]88-10-07 12:55:00 Test Item Value Reference Range Interpretation Comments Hgb (test code = Hgb) 12.1 11.7-15.5 [place] 316741-10-07 12:55:00 Test Item Value Reference Range Interpretation Comments RDW (test code = RDW) 14.0 11.0-15.0 [facility] CenterBljynszYJBZMSVRTO5751-99-70 12:55:00 Test Item Value Reference Range Interpretation Comments Hct (test code = Hct) 37.8 35.0-45.0 [facility] CenterOpfmtqcRBRXYSVYQX7329-84-08 12:55:00 Test Item Value Reference Range Interpretation Comments MCV (test code = MCV) 84.0 80.0-100.0 [place] 316741-10-07 12:55:00 Test Item Value Reference Range Interpretation Comments MCH (test code = MCH) 26.9 pg 27.0-33.0 [place] [address]88-10-07 12:55:00 Test Item Value Reference Range Interpretation Comments MCHC (test code = MCHC) 32.0 32.0-36.0 [place] 316741-10-07 12:55:00 Test Item Value Reference Range Interpretation Comments RDW (test code = RDW) 14.0 11.0-15.0 [place] [address]88-10-07 12:55:00 Test Item Value Reference Range Interpretation Comments Platelet (test code = Platelet) 151 140-400 [facility] CenterVuwpbgoCVUZEYBFWA4862-06-76 12:55:00 Test Item Value Reference Range Interpretation Comments MPV (test code = MPV) 12.1 7.5-12.5 [facility] CenterZkyuvffZIFCMDTVEL0649-54-26 12:55:00 Test Item Value Reference Range Interpretation Comments Neutrophils # (test code = Neutrophils 3139 9103-8205 #) [facility] CenterIwjiwplHHQNQDOKNC5099-09-22 12:55:00 Test Item Value Reference Range Interpretation Comments Lymphocytes # (test code = Lymphocytes 6435 894-2527 #) [facility] CenterOuvjxvmYKNIVZMPTH4127-84-55 12:55:00 Test Item Value Reference Range Interpretation Comments Monocytes # (test code = Monocytes #) 350 200-950 [facility] CenterRgjwrkgXSYWGRPQIX9039-29-34 12:55:00 Test Item Value Reference Range Interpretation Comments Platelet (test code = Platelet) 151 140-400 [facility] CenterZkfsrzzBLVETEMHUF1644-63-36 12:55:00 Test Item Value Reference Range Interpretation Comments Eosinophils # (test code = Eosinophils 72 15-500 #) [facility] CenterZdeltxxOSBMOTWQWA3724-07-65 12:55:00 Test Item Value Reference Range Interpretation Comments Basophils # (test code 29 See_Comment [Aut omated message] The = Basophils #) system which generated this result tra nsmitted reference range : <=200. The reference r brice was not used to int erpret this result as normal/abnormal . [facility] CenterZxcyqosMOWMUFSIKQ4263-91-45 12:55:00 Test Item Value Reference Range Interpretation Comments Segs (test code = Segs) 65.4 [facility] CenterJvunwhhAIMWRAITTE9769-68-83 12:55:00 Test Item Value Reference Range Interpretation Comments Lymphocytes (test code = Lymphocytes) 25.2 [facility] CenterHvlxizzQWLCKZQWMM8943-25-62 12:55:00 Test Item Value Reference Range Interpretation Comments Monocytes (test code = Monocytes) 7.3 [facility] CenterUwmffdlJEEMXZLMBG9348-93-57 12:55:00 Test Item Value Reference Range Interpretation Comments Eosinophils (test code = Eosinophils) 1.5 [facility] CenterWjwcuzlFNXDSOLKAP3249-18-60 12:55:00 Test Item Value Reference Range Interpretation Comments Basophils (test code = Basophils) 0.6 [facility] CenterZuulaopWVMZNGZNQV0280-67-96 12:55:00 Test Item Value Reference Range Interpretation Comments Sed Rate (test code = Sed Rate) 22 [place] 562701-10-07 12:55:00 Test Item Value Reference Range Interpretation Comments C-REACTIVE PROTEIN (test code = 2.9 C-REACTIVE PROTEIN) [place] 316741-10-07 12:55:00 Test Item Value Reference Range Interpretation Comments MPV (test code = MPV) 12.1 7.5-12.5 [facility]2021-10-07 12:55:00 Test Item Value Reference Range Interpretation Comments Vitamin B12 Lvl (test code = Vitamin [phone] B12 Lvl) [facility]2021-10-07 12:55:00 Test Item Value Reference Range Interpretation Comments Glucose Lvl (test code = Glucose Lvl) 151 65-99 [place] 951291-10-07 12:55:00 Test Item Value Reference Range Interpretation Comments BUN (test code = BUN) 17 7-25 [place] 316741-10-07 12:55:00 Test Item Value Reference Range Interpretation Comments Neutrophils # (test code = Neutrophils 3139 0102-7024 #) [facility]2021-10-07 12:55:00 Test Item Value Reference Range Interpretation Comments Creatinine Lvl (test code = Creatinine 0.49 0.50-1.05 Lvl) [facility]2021-10-07 12:55:00 Test Item Value Reference Range Interpretation Comments eGFR NON-AFR. TONGAN (test code = 107 eGFR NON-AFR. TONGAN) [place] 951291-10-07 12:55:00 Test Item Value Reference Range Interpretation Comments eGFR (test code = eGFR 124 ) [place] 951291-10-07 12:55:00 Test Item Value Reference Range Interpretation Comments B/C Ratio (test code = B/C Ratio) 35 6-22 [place] 951291-10-07 12:55:00 Test Item Value Reference Range Interpretation Comments Sodium Lvl (test code = Sodium Lvl) 140 135-146 [place] 951291-10-07 12:55:00 Test Item Value Reference Range Interpretation Comments Potassium Lvl (test code = Potassium 4.0 3.5-5.3 Lvl) [place] 951291-10-07 12:55:00 Test Item Value Reference Range Interpretation Comments Chloride Lvl (test code = Chloride Lvl) 105 98-[address] [facility]2021-10-07 12:55:00 Test Item Value Reference Range Interpretation Comments CO2 (test code = CO2) 29 20-32 [place] 951291-10-07 12:55:00 Test Item Value Reference Range Interpretation Comments Calcium Lvl (test code = Calcium Lvl) 8.7 8.6-10.4 [place] 951291-10-07 12:55:00 Test Item Value Reference Range Interpretation Comments Total Protein (test code = Total 6.8 6.1-8.1 Protein) [facility] CenterVoekmqvODPIWVHBKE4485-29-03 12:55:00 Test Item Value Reference Range Interpretation Comments Lymphocytes # (test code = Lymphocytes 3936 126-3715 #) [facility]2021-10-07 12:55:00 Test Item Value Reference Range Interpretation Comments Albumin Lvl (test code = Albumin Lvl) 3.7 3.6-5.1 [place] 951291-10-07 12:55:00 Test Item Value Reference Range Interpretation Comments Globulin (test code = Globulin) 3.1 1.9-3.7 [place] 951291-10-07 12:55:00 Test Item Value Reference Range Interpretation Comments A/G Ratio (test code = A/G Ratio) 1.2 1.0-2.[address] [facility]2021-10-07 12:55:00 Test Item Value Reference Range Interpretation Comments Bili Total (test code = Bili Total) 0.6 0.2-1.[address] [facility]2021-10-07 12:55:00 Test Item Value Reference Range Interpretation Comments Alk Phos (test code = Alk Phos) 59 37-153 [place] 951291-10-07 12:55:00 Test Item Value Reference Range Interpretation Comments ASPARTATE TRANSAMINASE (test code = 18 10-35 ASPARTATE TRANSAMINASE) [place] 951291-10-07 12:55:00 Test Item Value Reference Range Interpretation Comments ALANINE AMINOTRANSFERASE (test code = 23 6-29 ALANINE AMINOTRANSFERASE) [place] 316741-10-07 12:55:00 Test Item Value Reference Range Interpretation Comments WBC X 10x3 (test code = WBC X 10x3) 4.8 3.8-10.8 [place] 316741-10-07 12:55:00 Test Item Value Reference Range Interpretation Comments RBC X 10x6 (test code = RBC X 10x6) 4.50 3.80-5.10 [place] 316741-10-07 12:55:00 Test Item Value Reference Range Interpretation Comments Hgb (test code = Hgb) 12.1 11.7-15.5 [place] 316741-10-07 12:55:00 Test Item Value Reference Range Interpretation Comments Monocytes # (test code = Monocytes #) 350 200-950 [facility] CenterVhallmjQRKRGTPJGJ8662-86-61 12:55:00 Test Item Value Reference Range Interpretation Comments Hct (test code = Hct) 37.8 35.0-45.0 [place] 316741-10-07 12:55:00 Test Item Value Reference Range Interpretation Comments MCV (test code = MCV) 84.0 80.0-100.0 [place] [address]-10-07 12:55:00 Test Item Value Reference Range Interpretation Comments MCH (test code = MCH) 26.9 pg 27.0-33.0 [facility] CenterGcqtdmrWAIKZZKQPI7798-75-25 12:55:00 Test Item Value Reference Range Interpretation Comments MCHC (test code = MCHC) 32.0 32.0-36.0 [facility] CenterUqrcxwjGAJNZQDSKL1593-30-20 12:55:00 Test Item Value Reference Range Interpretation Comments RDW (test code = RDW) 14.0 11.0-15.0 [place] 316741-10-07 12:55:00 Test Item Value Reference Range Interpretation Comments Platelet (test code = Platelet) 151 140-400 [facility] CenterEvqsjrxIHMSRTWSCU8832-74-32 12:55:00 Test Item Value Reference Range Interpretation Comments MPV (test code = MPV) 12.1 7.5-12.5 [place] 316741-10-07 12:55:00 Test Item Value Reference Range Interpretation Comments Neutrophils # (test code = Neutrophils 2869 2646-5736 #) [facility] CenterGwdjadwMLHLFFJYFI0904-25-65 12:55:00 Test Item Value Reference Range Interpretation Comments Lymphocytes # (test code = Lymphocytes 5155 880-3005 #) [facility] CenterHoxatryAXGRBLVMNF3887-99-72 12:55:00 Test Item Value Reference Range Interpretation Comments Monocytes # (test code = Monocytes #) 350 200-950 [facility] CenterBpdewnuBXLTLTWYNJ8136-33-93 12:55:00 Test Item Value Reference Range Interpretation Comments Eosinophils # (test code = Eosinophils 72 15-500 #) [facility] CenterFkuuqipZSFSDFBORR8572-08-18 12:55:00 Test Item Value Reference Range Interpretation Comments Eosinophils # (test code = Eosinophils 72 15-500 #) [facility] CenterJwmyldqZJOJIUVGPQ6168-57-22 12:55:00 Test Item Value Reference Range Interpretation Comments Basophils # (test code 29 See_Comment [Aut omated message] The = Basophils #) system which generated this result tra nsmitted reference range : <=200. The reference r brice was not used to int erpret this result as normal/abnormal . [facility] CenterEfsdmsqELJVLZQASQ8629-60-29 12:55:00 Test Item Value Reference Range Interpretation Comments Segs (test code = Segs) 65.4 [facility] CenterRlsfuehYEGFCCZBOC3012-62-05 12:55:00 Test Item Value Reference Range Interpretation Comments Lymphocytes (test code = Lymphocytes) 25.2 [facility] CenterRqspvmuNCVBQNRHSH5451-29-53 12:55:00 Test Item Value Reference Range Interpretation Comments Monocytes (test code = Monocytes) 7.3 [facility] CenterXfhnpolGZOUXDQWFK9835-28-50 12:55:00 Test Item Value Reference Range Interpretation Comments Eosinophils (test code = Eosinophils) 1.5 [facility] CenterWklywgaQGREKNGEZY2280-87-56 12:55:00 Test Item Value Reference Range Interpretation Comments Basophils (test code = Basophils) 0.6 [facility] CenterXsmvwkgSAWVBVPHTP9710-76-50 12:55:00 Test Item Value Reference Range Interpretation Comments Sed Rate (test code = Sed Rate) [address] [facility] [address] HospitalDiaccnnFYSZZLFEOW2045-96-36 12:55:00 Test Item Value Reference Range Interpretation Comments C-REACTIVE PROTEIN (test code = 2.9 C-REACTIVE PROTEIN) [facility] CenterXgfsclwIXDNCJCCCU7111-99-60 12:55:00 Test Item Value Reference Range Interpretation Comments Basophils # (test code 29 See_Comment [Aut omated message] The = Basophils #) system which generated this result tra nsmitted reference range : <=200. The reference r brice was not used to int erpret this result as normal/abnormal . [facility]2021-10-07 12:55:00 Test Item Value Reference Range Interpretation Comments Vitamin B12 Lvl (test code = Vitamin 654 744-8433 B12 Lvl) [place] 951291-10-07 12:55:00 Test Item Value Reference Range Interpretation Comments Glucose Lvl (test code = Glucose Lvl) 151 65-99 [place] 951291-10-07 12:55:00 Test Item Value Reference Range Interpretation Comments BUN (test code = BUN) 17 7-25 [facility] CenterNjqowleNIAMCYZLXQ6486-16-03 12:55:00 Test Item Value Reference Range Interpretation Comments Segs (test code = Segs) 65.[address] [facility]2021-10-07 12:55:00 Test Item Value Reference Range Interpretation Comments Creatinine Lvl (test code = Creatinine 0.49 0.50-1.05 Lvl) [place] 951291-10-07 12:55:00 Test Item Value Reference Range Interpretation Comments eGFR NON-AFR. TONGAN (test code = 107 eGFR NON-AFR. TONGAN) [place] 951291-10-07 12:55:00 Test Item Value Reference Range Interpretation Comments eGFR (test code = eGFR 124 ) [place] 951291-10-07 12:55:00 Test Item Value Reference Range Interpretation Comments B/C Ratio (test code = B/C Ratio) 35 6-22 [place] 951291-10-07 12:55:00 Test Item Value Reference Range Interpretation Comments Sodium Lvl (test code = Sodium Lvl) 140 135-146 [place] 951291-10-07 12:55:00 Test Item Value Reference Range Interpretation Comments Potassium Lvl (test code = Potassium 4.0 3.5-5.3 Lvl) [facility]2021-10-07 12:55:00 Test Item Value Reference Range Interpretation Comments Chloride Lvl (test code = Chloride Lvl) 105 98-110 [place] 951291-10-07 12:55:00 Test Item Value Reference Range Interpretation Comments CO2 (test code = CO2) 29 20-32 [place] 951291-10-07 12:55:00 Test Item Value Reference Range Interpretation Comments Calcium Lvl (test code = Calcium Lvl) 8.7 8.6-10.4 [place] 951291-10-07 12:55:00 Test Item Value Reference Range Interpretation Comments Total Protein (test code = Total 6.8 6.1-8.1 Protein) [place] 316741-10-07 12:55:00 Test Item Value Reference Range Interpretation Comments Lymphocytes (test code = Lymphocytes) 25.2 [place] 951291-10-07 12:55:00 Test Item Value Reference Range Interpretation Comments Albumin Lvl (test code = Albumin Lvl) 3.7 3.6-5.1 [place] 951291-10-07 12:55:00 Test Item Value Reference Range Interpretation Comments Globulin (test code = Globulin) 3.1 1.9-3.7 [place] [address]-10-07 12:55:00 Test Item Value Reference Range Interpretation Comments A/G Ratio (test code = A/G Ratio) 1.2 1.0-2.5 [place] [address]-10-07 12:55:00 Test Item Value Reference Range Interpretation Comments Bili Total (test code = Bili Total) 0.6 0.2-1.2 [place] 951291-10-07 12:55:00 Test Item Value Reference Range Interpretation Comments Alk Phos (test code = Alk Phos) 59 37-153 [place] 951291-10-07 12:55:00 Test Item Value Reference Range Interpretation Comments ASPARTATE TRANSAMINASE (test code = 18 10-35 ASPARTATE TRANSAMINASE) [place] 951291-10-07 12:55:00 Test Item Value Reference Range Interpretation Comments ALANINE AMINOTRANSFERASE (test code = 23 6-29 ALANINE AMINOTRANSFERASE) [place] [address]-10-07 12:55:00 Test Item Value Reference Range Interpretation Comments WBC X 10x3 (test code = WBC X 10x3) 4.8 3.8-10.8 [place] [address]-10-07 12:55:00 Test Item Value Reference Range Interpretation Comments RBC X 10x6 (test code = RBC X 10x6) 4.50 3.80-5.10 [place] 316741-10-07 12:55:00 Test Item Value Reference Range Interpretation Comments Hgb (test code = Hgb) 12.1 11.7-15.5 [place] 316741-10-07 12:55:00 Test Item Value Reference Range Interpretation Comments Monocytes (test code = Monocytes) 7.3 [facility] CenterBaklviiBTZCLHQFRV2272-74-16 12:55:00 Test Item Value Reference Range Interpretation Comments Hct (test code = Hct) 37.8 35.0-45.0 [facility] CenterSmhlnxoJDQLLNTUYH8085-27-70 12:55:00 Test Item Value Reference Range Interpretation Comments MCV (test code = MCV) 84.0 80.0-100.0 [place] 316741-10-07 12:55:00 Test Item Value Reference Range Interpretation Comments MCH (test code = MCH) 26.9 pg 27.0-33.0 [place] 316741-10-07 12:55:00 Test Item Value Reference Range Interpretation Comments MCHC (test code = MCHC) 32.0 32.0-36.0 [facility] CenterDodsimcARUCDCWRFJ0614-31-22 12:55:00 Test Item Value Reference Range Interpretation Comments RDW (test code = RDW) 14.0 11.0-15.0 [facility] CenterZvrscyzOEJQSGXPLS0907-20-89 12:55:00 Test Item Value Reference Range Interpretation Comments Platelet (test code = Platelet) 151 140-400 [facility] CenterThyfrzsNOTJQEAHBY8773-05-37 12:55:00 Test Item Value Reference Range Interpretation Comments MPV (test code = MPV) 12.1 7.5-12.5 [facility] CenterXsopzgjXNAGLTGYLH4799-81-14 12:55:00 Test Item Value Reference Range Interpretation Comments Neutrophils # (test code = Neutrophils 3139 7355-1260 #) [facility] CenterRnpwuasZDIJXNTPZF9617-98-76 12:55:00 Test Item Value Reference Range Interpretation Comments Lymphocytes # (test code = Lymphocytes 6399 778-4543 #) [place] 316741-10-07 12:55:00 Test Item Value Reference Range Interpretation Comments Monocytes # (test code = Monocytes #) 350 200-950 [facility] CenterWgvkmnvOHEJDFOAWU8360-38-82 12:55:00 Test Item Value Reference Range Interpretation Comments Eosinophils (test code = Eosinophils) 1.5 [facility] CenterLdubtbiPYGLGJAFUP0954-42-04 12:55:00 Test Item Value Reference Range Interpretation Comments Eosinophils # (test code = Eosinophils 72 15-500 #) [place] 316741-10-07 12:55:00 Test Item Value Reference Range Interpretation Comments Basophils # (test code 29 See_Comment [Aut omated message] The = Basophils #) system which generated this result tra nsmitted reference range : <=200. The reference r brice was not used to int erpret this result as normal/abnormal . [facility] CenterDwclhcgUDFLFTUXBX6958-76-75 12:55:00 Test Item Value Reference Range Interpretation Comments Segs (test code = Segs) 65.4 [place] 316741-10-07 12:55:00 Test Item Value Reference Range Interpretation Comments Lymphocytes (test code = Lymphocytes) 25.2 [facility] CenterOylxcdjTSEJIPBHVO8493-65-66 12:55:00 Test Item Value Reference Range Interpretation Comments Monocytes (test code = Monocytes) 7.3 [facility] CenterHwdsjojTAMPDOJCCA9898-29-42 12:55:00 Test Item Value Reference Range Interpretation Comments Eosinophils (test code = Eosinophils) 1.5 [place] 316741-10-07 12:55:00 Test Item Value Reference Range Interpretation Comments Basophils (test code = Basophils) 0.6 [facility] CenterTbgnkpcRYXEVOAKBN2798-11-96 12:55:00 Test Item Value Reference Range Interpretation Comments Sed Rate (test code = Sed Rate) 22 [facility]AahegubVINMSWSBAF1996-78-73 12:55:00 Test Item Value Reference Range Interpretation Comments C-REACTIVE PROTEIN (test code = 2.9 C-REACTIVE PROTEIN) [facility] CenterOswtjrqAGBNHUAHQA7591-27-13 12:55:00 Test Item Value Reference Range Interpretation Comments Basophils (test code = Basophils) 0.6 [facility]2021-10-07 12:55:00 Test Item Value Reference Range Interpretation Comments Vitamin B12 Lvl (test code = Vitamin [phone] B12 Lvl) [facility]2021-10-07 12:55:00 Test Item Value Reference Range Interpretation Comments Glucose Lvl (test code = Glucose Lvl) 151 65-[address] [facility]2021-10-07 12:55:00 Test Item Value Reference Range Interpretation Comments BUN (test code = BUN) 17 7-25 [place] 316741-10-07 12:55:00 Test Item Value Reference Range Interpretation Comments Sed Rate (test code = Sed Rate) [address] [facility]2021-10-07 12:55:00 Test Item Value Reference Range Interpretation Comments Creatinine Lvl (test code = Creatinine 0.49 0.50-1.05 Lvl) [facility]2021-10-07 12:55:00 Test Item Value Reference Range Interpretation Comments eGFR NON-AFR. TONGAN (test code = 107 eGFR NON-AFR. TONGAN) [facility]2021-10-07 12:55:00 Test Item Value Reference Range Interpretation Comments eGFR (test code = eGFR 124 ) [facility]2021-10-07 12:55:00 Test Item Value Reference Range Interpretation Comments B/C Ratio (test code = B/C Ratio) 35 6-[address] [facility]2021-10-07 12:55:00 Test Item Value Reference Range Interpretation Comments Sodium Lvl (test code = Sodium Lvl) 140 135-[address] [facility]2021-10-07 12:55:00 Test Item Value Reference Range Interpretation Comments Potassium Lvl (test code = Potassium 4.0 3.5-5.3 Lvl) [facility]2021-10-07 12:55:00 Test Item Value Reference Range Interpretation Comments Chloride Lvl (test code = Chloride Lvl) 105 98-[address] [facility]2021-10-07 12:55:00 Test Item Value Reference Range Interpretation Comments CO2 (test code = CO2) 29 20-[address] [facility]2021-10-07 12:55:00 Test Item Value Reference Range Interpretation Comments Calcium Lvl (test code = Calcium Lvl) 8.7 8.6-10.[address] [facility]2021-10-07 12:55:00 Test Item Value Reference Range Interpretation Comments Total Protein (test code = Total 6.8 6.1-8.1 Protein) [facility]BipuzyaUJGQJKPRVS6963-85-85 12:55:00 Test Item Value Reference Range Interpretation Comments C-REACTIVE PROTEIN (test code = 2.9 C-REACTIVE PROTEIN) [facility]2021-10-07 12:55:00 Test Item Value Reference Range Interpretation Comments Albumin Lvl (test code = Albumin Lvl) 3.7 3.6-5.[address] [facility]2021-10-07 12:55:00 Test Item Value Reference Range Interpretation Comments Globulin (test code = Globulin) 3.1 1.9-3.7 [place] 951291-10-07 12:55:00 Test Item Value Reference Range Interpretation Comments A/G Ratio (test code = A/G Ratio) 1.2 1.0-2.5 [place] 951291-10-07 12:55:00 Test Item Value Reference Range Interpretation Comments Bili Total (test code = Bili Total) 0.6 0.2-1.2 [place] 951291-10-07 12:55:00 Test Item Value Reference Range Interpretation Comments Alk Phos (test code = Alk Phos) 59 37-153 [place] 951291-10-07 12:55:00 Test Item Value Reference Range Interpretation Comments ASPARTATE TRANSAMINASE (test code = 18 10-35 ASPARTATE TRANSAMINASE) [place] [address]-10-07 12:55:00 Test Item Value Reference Range Interpretation Comments ALANINE AMINOTRANSFERASE (test code = 23 6-29 ALANINE AMINOTRANSFERASE) [place] 316741-10-07 12:55:00 Test Item Value Reference Range Interpretation Comments WBC X 10x3 (test code = WBC X 10x3) 4.8 3.8-10.8 [place] 316741-10-07 12:55:00 Test Item Value Reference Range Interpretation Comments RBC X 10x6 (test code = RBC X 10x6) 4.50 3.80-5.10 [place] 316741-10-07 12:55:00 Test Item Value Reference Range Interpretation Comments Hgb (test code = Hgb) 12.1 11.7-15.5 [place] 316741-10-07 12:55:00 Test Item Value Reference Range Interpretation Comments Hct (test code = Hct) 37.8 35.0-45.0 [place] 316741-10-07 12:55:00 Test Item Value Reference Range Interpretation Comments MCV (test code = MCV) 84.0 80.0-100.0 [place] 316741-10-07 12:55:00 Test Item Value Reference Range Interpretation Comments MCH (test code = MCH) 26.9 pg 27.0-33.0 [place] [address]-10-07 12:55:00 Test Item Value Reference Range Interpretation Comments MCHC (test code = MCHC) 32.0 32.0-36.0 [place] [address]-10-07 12:55:00 Test Item Value Reference Range Interpretation Comments RDW (test code = RDW) 14.0 11.0-15.0 [place] 316741-10-07 12:55:00 Test Item Value Reference Range Interpretation Comments Platelet (test code = Platelet) 151 140-400 [place] 316741-10-07 12:55:00 Test Item Value Reference Range Interpretation Comments MPV (test code = MPV) 12.1 7.5-12.5 [place] 316741-10-07 12:55:00 Test Item Value Reference Range Interpretation Comments Neutrophils # (test code = Neutrophils 3139 2215-2668 #) [place] 316741-10-07 12:55:00 Test Item Value Reference Range Interpretation Comments Lymphocytes # (test code = Lymphocytes 3815 658-0727 #) [place] 316741-10-07 12:55:00 Test Item Value Reference Range Interpretation Comments Monocytes # (test code = Monocytes #) 350 200-950 [place] 316741-10-07 12:55:00 Test Item Value Reference Range Interpretation Comments Eosinophils # (test code = Eosinophils 72 15-500 #) [facility] CenterNqrzdqgILEHUWQMDG2654-76-34 12:55:00 Test Item Value Reference Range Interpretation Comments Basophils # (test code 29 See_Comment [Aut omated message] The = Basophils #) system which generated this result tra nsmitted reference range : <=200. The reference r brice was not used to int erpret this result as normal/abnormal . [facility] CenterIiyiuzlNKIHZWAGOJ9598-28-15 12:55:00 Test Item Value Reference Range Interpretation Comments Segs (test code = Segs) 65.4 [place] 316741-10-07 12:55:00 Test Item Value Reference Range Interpretation Comments Lymphocytes (test code = Lymphocytes) 25.2 [place] 316741-10-07 12:55:00 Test Item Value Reference Range Interpretation Comments Monocytes (test code = Monocytes) 7.3 [place] 316741-10-07 12:55:00 Test Item Value Reference Range Interpretation Comments Eosinophils (test code = Eosinophils) 1.5 [place] 316741-10-07 12:55:00 Test Item Value Reference Range Interpretation Comments Basophils (test code = Basophils) 0.[address] [facility] HospitalLeyggttCZXMZKCGJS9197-26-86 12:55:00 Test Item Value Reference Range Interpretation Comments Sed Rate (test code = Sed Rate) [address] [facility] HospitalRryvhmcVNHGOKVMHE4122-78-40 12:55:00 Test Item Value Reference Range Interpretation Comments C-REACTIVE PROTEIN (test code = 2.9 C-REACTIVE PROTEIN) [facility] [id number] 12:55:00 Test Item Value Reference Range Interpretation Comments Vitamin B12 Lvl (test code = Vitamin 290 119-0369 B12 Lvl) [facility]2021-10-07 12:55:00 Test Item Value Reference Range Interpretation Comments Glucose Lvl (test code = Glucose Lvl) 151 65-99 [place] 951291-10-07 12:55:00 Test Item Value Reference Range Interpretation Comments BUN (test code = BUN) 17 7-25 [place] 951291-10-07 12:55:00 Test Item Value Reference Range Interpretation Comments Creatinine Lvl (test code = Creatinine 0.49 0.50-1.05 Lvl) [facility]2021-10-07 12:55:00 Test Item Value Reference Range Interpretation Comments eGFR NON-AFR. TONGAN (test code = 107 eGFR NON-AFR. TONGAN) [facility]2021-10-07 12:55:00 Test Item Value Reference Range Interpretation Comments eGFR (test code = eGFR 124 ) [place] 951291-10-07 12:55:00 Test Item Value Reference Range Interpretation Comments B/C Ratio (test code = B/C Ratio) 35 6-[address] [facility]2021-10-07 12:55:00 Test Item Value Reference Range Interpretation Comments Sodium Lvl (test code = Sodium Lvl) 140 135-146 [place] 951291-10-07 12:55:00 Test Item Value Reference Range Interpretation Comments Potassium Lvl (test code = Potassium 4.0 3.5-5.3 Lvl) [facility]2021-10-07 12:55:00 Test Item Value Reference Range Interpretation Comments Chloride Lvl (test code = Chloride Lvl) 105 98-110 [place] 951291-10-07 12:55:00 Test Item Value Reference Range Interpretation Comments CO2 (test code = CO2) 29 20-32 [place] 951291-10-07 12:55:00 Test Item Value Reference Range Interpretation Comments Calcium Lvl (test code = Calcium Lvl) 8.7 8.6-10.4 [place] 951291-10-07 12:55:00 Test Item Value Reference Range Interpretation Comments Total Protein (test code = Total 6.8 6.1-8.1 Protein) [place] 951291-10-07 12:55:00 Test Item Value Reference Range Interpretation Comments Albumin Lvl (test code = Albumin Lvl) 3.7 3.6-5.1 [place] 951291-10-07 12:55:00 Test Item Value Reference Range Interpretation Comments Globulin (test code = Globulin) 3.1 1.9-3.7 [place] 951291-10-07 12:55:00 Test Item Value Reference Range Interpretation Comments A/G Ratio (test code = A/G Ratio) 1.2 1.0-2.5 [place] 951291-10-07 12:55:00 Test Item Value Reference Range Interpretation Comments Bili Total (test code = Bili Total) 0.6 0.2-1.2 [place] [address]-10-07 12:55:00 Test Item Value Reference Range Interpretation Comments Alk Phos (test code = Alk Phos) 59 37-153 [place] 951291-10-07 12:55:00 Test Item Value Reference Range Interpretation Comments ASPARTATE TRANSAMINASE (test code = 18 10-35 ASPARTATE TRANSAMINASE) [place] 951291-10-07 12:55:00 Test Item Value Reference Range Interpretation Comments ALANINE AMINOTRANSFERASE (test code = 23 6-29 ALANINE AMINOTRANSFERASE) [place] [address]-10-07 12:55:00 Test Item Value Reference Range Interpretation Comments WBC X 10x3 (test code = WBC X 10x3) 4.8 3.8-10.8 [place] 316741-10-07 12:55:00 Test Item Value Reference Range Interpretation Comments RBC X 10x6 (test code = RBC X 10x6) 4.50 3.80-5.10 [place] 316741-10-07 12:55:00 Test Item Value Reference Range Interpretation Comments Hgb (test code = Hgb) 12.1 11.7-15.5 [place] 316741-10-07 12:55:00 Test Item Value Reference Range Interpretation Comments Hct (test code = Hct) 37.8 35.0-45.0 [place] 316741-10-07 12:55:00 Test Item Value Reference Range Interpretation Comments MCV (test code = MCV) 84.0 80.0-100.0 [place] 316741-10-07 12:55:00 Test Item Value Reference Range Interpretation Comments MCH (test code = MCH) 26.9 pg 27.0-33.0 [place] [address]-10-07 12:55:00 Test Item Value Reference Range Interpretation Comments MCHC (test code = MCHC) 32.0 32.0-36.0 [place] 316741-10-07 12:55:00 Test Item Value Reference Range Interpretation Comments RDW (test code = RDW) 14.0 11.0-15.0 [place] 316741-10-07 12:55:00 Test Item Value Reference Range Interpretation Comments Platelet (test code = Platelet) 151 140-400 [place] 316741-10-07 12:55:00 Test Item Value Reference Range Interpretation Comments MPV (test code = MPV) 12.1 7.5-12.5 [place] [address]-10-07 12:55:00 Test Item Value Reference Range Interpretation Comments Neutrophils # (test code = Neutrophils 3139 3699-3205 #) [facility]08[facility] 12:55:00 Test Item Value Reference Range Interpretation Comments Lymphocytes # (test code = Lymphocytes 2087 414-4149 #) [place] 316741-10-07 12:55:00 Test Item Value Reference Range Interpretation Comments Monocytes # (test code = Monocytes #) 350 200-950 [place] 316741-10-07 12:55:00 Test Item Value Reference Range Interpretation Comments Eosinophils # (test code = Eosinophils 72 15-500 #) [place] 316741-10-07 12:55:00 Test Item Value Reference Range Interpretation Comments Basophils # (test code 29 See_Comment [Aut omated message] The = Basophils #) system which generated this result tra nsmitted reference range : <=200. The reference r brice was not used to int erpret this result as normal/abnormal . [place] 316741-10-07 12:55:00 Test Item Value Reference Range Interpretation Comments Segs (test code = Segs) 65.4 [place] 316741-10-07 12:55:00 Test Item Value Reference Range Interpretation Comments Lymphocytes (test code = Lymphocytes) 25.2 [place] 316741-10-07 12:55:00 Test Item Value Reference Range Interpretation Comments Monocytes (test code = Monocytes) 7.3 [place] 316741-10-07 12:55:00 Test Item Value Reference Range Interpretation Comments Eosinophils (test code = Eosinophils) 1.5 [place] [address]-10-07 12:55:00 Test Item Value Reference Range Interpretation Comments Basophils (test code = Basophils) 0.6 [place] [address]-10-07 12:55:00 Test Item Value Reference Range Interpretation Comments Sed Rate (test code = Sed Rate) 22 [place] 562701-10-07 12:55:00 Test Item Value Reference Range Interpretation Comments C-REACTIVE PROTEIN (test code = 2.9 C-REACTIVE PROTEIN) [facility]2021-10-07 12:55:00 Test Item Value Reference Range Interpretation Comments Vitamin B12 Lvl (test code = Vitamin 085 083-2184 B12 Lvl) [facility]2021-10-07 12:55:00 Test Item Value Reference Range Interpretation Comments Glucose Lvl (test code = Glucose Lvl) 151 65-[address] [facility]2021-10-07 12:55:00 Test Item Value Reference Range Interpretation Comments BUN (test code = BUN) 17 7-25 [place] 951291-10-07 12:55:00 Test Item Value Reference Range Interpretation Comments Creatinine Lvl (test code = Creatinine 0.49 0.50-1.05 Lvl) [facility]2021-10-07 12:55:00 Test Item Value Reference Range Interpretation Comments eGFR NON-AFR. TONGAN (test code = 107 eGFR NON-AFR. TONGAN) [facility]2021-10-07 12:55:00 Test Item Value Reference Range Interpretation Comments eGFR (test code = eGFR 124 ) [place] 951291-10-07 12:55:00 Test Item Value Reference Range Interpretation Comments Creatinine Lvl (test code = Creatinine 0.49 0.50-1.05 Lvl) [place] 951291-10-07 12:55:00 Test Item Value Reference Range Interpretation Comments B/C Ratio (test code = B/C Ratio) 35 6-22 [place] 951291-10-07 12:55:00 Test Item Value Reference Range Interpretation Comments Sodium Lvl (test code = Sodium Lvl) 140 135-146 [place] 951291-10-07 12:55:00 Test Item Value Reference Range Interpretation Comments Potassium Lvl (test code = Potassium 4.0 3.5-5.3 Lvl) [facility]2021-10-07 12:55:00 Test Item Value Reference Range Interpretation Comments Chloride Lvl (test code = Chloride Lvl) 105 98-[address] [facility]2021-10-07 12:55:00 Test Item Value Reference Range Interpretation Comments CO2 (test code = CO2) 29 20-32 [place] 951291-10-07 12:55:00 Test Item Value Reference Range Interpretation Comments Calcium Lvl (test code = Calcium Lvl) 8.7 8.6-10.4 [place] 951291-10-07 12:55:00 Test Item Value Reference Range Interpretation Comments Total Protein (test code = Total 6.8 6.1-8.1 Protein) [place] 951291-10-07 12:55:00 Test Item Value Reference Range Interpretation Comments Albumin Lvl (test code = Albumin Lvl) 3.7 3.6-5.1 [place] 951291-10-07 12:55:00 Test Item Value Reference Range Interpretation Comments Globulin (test code = Globulin) 3.1 1.9-3.7 [place] 951291-10-07 12:55:00 Test Item Value Reference Range Interpretation Comments A/G Ratio (test code = A/G Ratio) 1.2 1.0-2.5 [place] 951291-10-07 12:55:00 Test Item Value Reference Range Interpretation Comments Bili Total (test code = Bili Total) 0.6 0.2-1.2 [place] 951291-10-07 12:55:00 Test Item Value Reference Range Interpretation Comments Alk Phos (test code = Alk Phos) 59 37-153 [place] 951291-10-07 12:55:00 Test Item Value Reference Range Interpretation Comments eGFR NON-AFR. TONGAN (test code = 107 eGFR NON-AFR. TONGAN) [place] 951291-10-07 12:55:00 Test Item Value Reference Range Interpretation Comments ASPARTATE TRANSAMINASE (test code = 18 10-35 ASPARTATE TRANSAMINASE) [place] 951291-10-07 12:55:00 Test Item Value Reference Range Interpretation Comments ALANINE AMINOTRANSFERASE (test code = 23 6-29 ALANINE AMINOTRANSFERASE) [place] 316741-10-07 12:55:00 Test Item Value Reference Range Interpretation Comments WBC X 10x3 (test code = WBC X 10x3) 4.8 3.8-10.8 [place] 316741-10-07 12:55:00 Test Item Value Reference Range Interpretation Comments RBC X 10x6 (test code = RBC X 10x6) 4.50 3.80-5.10 [place] 316741-10-07 12:55:00 Test Item Value Reference Range Interpretation Comments Hgb (test code = Hgb) 12.1 11.7-15.5 [place] 316741-10-07 12:55:00 Test Item Value Reference Range Interpretation Comments Hct (test code = Hct) 37.8 35.0-45.0 [place] 316741-10-07 12:55:00 Test Item Value Reference Range Interpretation Comments MCV (test code = MCV) 84.0 80.0-100.0 [place] [address]-10-07 12:55:00 Test Item Value Reference Range Interpretation Comments MCH (test code = MCH) 26.9 pg 27.0-33.0 [place] [address]-10-07 12:55:00 Test Item Value Reference Range Interpretation Comments MCHC (test code = MCHC) 32.0 32.0-36.0 [place] 316741-10-07 12:55:00 Test Item Value Reference Range Interpretation Comments RDW (test code = RDW) 14.0 11.0-15.0 [place] [address]-10-07 12:55:00 Test Item Value Reference Range Interpretation Comments Platelet (test code = Platelet) 151 140-400 [facility]MwyrdppASPHZZAGOC3225-50-06 12:55:00 Test Item Value Reference Range Interpretation Comments MPV (test code = MPV) 12.1 7.5-12.5 [facility] CenterKkddtyvJPDNZUFPVG5414-71-06 12:55:00 Test Item Value Reference Range Interpretation Comments Neutrophils # (test code = Neutrophils 3139 4010-1519 #) [facility]2021-10-07 12:55:00 Test Item Value Reference Range Interpretation Comments eGFR (test code = eGFR 124 ) [facility] CenterIewotjfABGTGMKRSK8695-64-79 12:55:00 Test Item Value Reference Range Interpretation Comments Lymphocytes # (test code = Lymphocytes 2590 024-4764 #) [facility] CenterPfizytxRWNBIPMJRL0165-68-41 12:55:00 Test Item Value Reference Range Interpretation Comments Monocytes # (test code = Monocytes #) 350 200-950 [place] 316741-10-07 12:55:00 Test Item Value Reference Range Interpretation Comments Eosinophils # (test code = Eosinophils 72 15-500 #) [facility] CenterPyiaaapGKFUQQGVLG8076-23-19 12:55:00 Test Item Value Reference Range Interpretation Comments Basophils # (test code 29 See_Comment [Aut omated message] The = Basophils #) system which generated this result tra nsmitted reference range : <=200. The reference r brice was not used to int erpret this result as normal/abnormal . [facility] CenterQzkqgjeZYTCBJEAFJ4611-39-41 12:55:00 Test Item Value Reference Range Interpretation Comments Segs (test code = Segs) 65.4 [facility] CenterFqewixzZREUKKHBGF1970-65-01 12:55:00 Test Item Value Reference Range Interpretation Comments Lymphocytes (test code = Lymphocytes) 25.2 [place] 316741-10-07 12:55:00 Test Item Value Reference Range Interpretation Comments Monocytes (test code = Monocytes) 7.3 [place] 316741-10-07 12:55:00 Test Item Value Reference Range Interpretation Comments Eosinophils (test code = Eosinophils) 1.5 [place] 316741-10-07 12:55:00 Test Item Value Reference Range Interpretation Comments Basophils (test code = Basophils) 0.6 [place] 316741-10-07 12:55:00 Test Item Value Reference Range Interpretation Comments Sed Rate (test code = Sed Rate) [address] [facility] [address]geYBNJOIBJXH4653-34-49 12:55:00 Test Item Value Reference Range Interpretation Comments C-REACTIVE PROTEIN (test code = 2.9 C-REACTIVE PROTEIN) [facility]2021-10-07 12:55:00 Test Item Value Reference Range Interpretation Comments Vitamin B12 Lvl (test code = Vitamin 020 097-8955 B12 Lvl) [facility]2021-10-07 12:55:00 Test Item Value Reference Range Interpretation Comments Glucose Lvl (test code = Glucose Lvl) 151 65-[address] [facility]2021-10-07 12:55:00 Test Item Value Reference Range Interpretation Comments BUN (test code = BUN) 17 7-25 [place] 951291-10-07 12:55:00 Test Item Value Reference Range Interpretation Comments B/C Ratio (test code = B/C Ratio) 35 6-22 [place] 951291-10-07 12:55:00 Test Item Value Reference Range Interpretation Comments Sodium Lvl (test code = Sodium Lvl) 140 135-[address] [facility]2021-10-07 12:55:00 Test Item Value Reference Range Interpretation Comments Potassium Lvl (test code = Potassium 4.0 3.5-5.3 Lvl) [facility]2021-10-07 12:55:00 Test Item Value Reference Range Interpretation Comments Chloride Lvl (test code = Chloride Lvl) 105 98-[address] [facility]2021-10-07 12:55:00 Test Item Value Reference Range Interpretation Comments CO2 (test code = CO2) 29 20-[address] [facility]2021-10-07 12:55:00 Test Item Value Reference Range Interpretation Comments Calcium Lvl (test code = Calcium Lvl) 8.7 8.6-10.4 [place] 951291-10-07 12:55:00 Test Item Value Reference Range Interpretation Comments Total Protein (test code = Total 6.8 6.1-8.1 Protein) [place] 951291-10-07 12:55:00 Test Item Value Reference Range Interpretation Comments Albumin Lvl (test code = Albumin Lvl) 3.7 3.6-5.1 [place] 951291-10-07 12:55:00 Test Item Value Reference Range Interpretation Comments Globulin (test code = Globulin) 3.1 1.9-3.7 [place] 951291-10-07 12:55:00 Test Item Value Reference Range Interpretation Comments A/G Ratio (test code = A/G Ratio) 1.2 1.0-2.5 [place] [address]-10-07 12:55:00 Test Item Value Reference Range Interpretation Comments Bili Total (test code = Bili Total) 0.6 0.2-1.2 [place] [address]-10-07 12:55:00 Test Item Value Reference Range Interpretation Comments Alk Phos (test code = Alk Phos) 59 37-153 [place] 951291-10-07 12:55:00 Test Item Value Reference Range Interpretation Comments ASPARTATE TRANSAMINASE (test code = 18 10-35 ASPARTATE TRANSAMINASE) [place] [address]-10-07 12:55:00 Test Item Value Reference Range Interpretation Comments ALANINE AMINOTRANSFERASE (test code = 23 6-29 ALANINE AMINOTRANSFERASE) [place] 316741-10-07 12:55:00 Test Item Value Reference Range Interpretation Comments WBC X 10x3 (test code = WBC X 10x3) 4.8 3.8-10.8 [place] [address]-10-07 12:55:00 Test Item Value Reference Range Interpretation Comments RBC X 10x6 (test code = RBC X 10x6) 4.50 3.80-5.10 [place] 316741-10-07 12:55:00 Test Item Value Reference Range Interpretation Comments Hgb (test code = Hgb) 12.1 11.7-15.5 [place] [address]-10-07 12:55:00 Test Item Value Reference Range Interpretation Comments Hct (test code = Hct) 37.8 35.0-45.0 [place] [address]-10-07 12:55:00 Test Item Value Reference Range Interpretation Comments MCV (test code = MCV) 84.0 80.0-100.0 [place] [address]-10-07 12:55:00 Test Item Value Reference Range Interpretation Comments MCH (test code = MCH) 26.9 pg 27.0-33.0 [place] [address]-10-07 12:55:00 Test Item Value Reference Range Interpretation Comments MCHC (test code = MCHC) 32.0 32.0-36.0 [place] 316741-10-07 12:55:00 Test Item Value Reference Range Interpretation Comments RDW (test code = RDW) 14.0 11.0-15.0 [place] 316741-10-07 12:55:00 Test Item Value Reference Range Interpretation Comments Platelet (test code = Platelet) 151 140-400 [place] 316741-10-07 12:55:00 Test Item Value Reference Range Interpretation Comments MPV (test code = MPV) 12.1 7.5-12.5 [place] 316741-10-07 12:55:00 Test Item Value Reference Range Interpretation Comments Neutrophils # (test code = Neutrophils 3139 1740-1818 #) [place] 316741-10-07 12:55:00 Test Item Value Reference Range Interpretation Comments Lymphocytes # (test code = Lymphocytes 0565 069-2274 #) [facility] CenterFxxmpzsGBVJNHYGFW6355-55-52 12:55:00 Test Item Value Reference Range Interpretation Comments Monocytes # (test code = Monocytes #) 350 200-950 [facility] CenterLnbtkheSCBJIECWXC5834-84-73 12:55:00 Test Item Value Reference Range Interpretation Comments Eosinophils # (test code = Eosinophils 72 15-500 #) [facility] CenterMujekdyTEOACVIVJR3790-20-69 12:55:00 Test Item Value Reference Range Interpretation Comments Basophils # (test code 29 See_Comment [Aut omated message] The = Basophils #) system which generated this result tra nsmitted reference range : <=200. The reference r brice was not used to int erpret this result as normal/abnormal . [facility] CenterKxkwucfWHARQQFEEM6268-35-11 12:55:00 Test Item Value Reference Range Interpretation Comments Segs (test code = Segs) 65.4 [place] 316741-10-07 12:55:00 Test Item Value Reference Range Interpretation Comments Lymphocytes (test code = Lymphocytes) 25.2 [place] 316741-10-07 12:55:00 Test Item Value Reference Range Interpretation Comments Monocytes (test code = Monocytes) 7.3 [place] 316741-10-07 12:55:00 Test Item Value Reference Range Interpretation Comments Eosinophils (test code = Eosinophils) 1.5 [facility]WPWO[facility]203[facility] 12:55:00 Test Item Value Reference Range Interpretation Comments Basophils (test code = Basophils) 0.6 [facility]YnwgyfuPOVREEEEQG5087-13-44 12:55:00 Test Item Value Reference Range Interpretation Comments Sed Rate (test code = Sed Rate) [address] [facility] [address]GhgmekbQQDEPVWJFY2024-95-63 12:55:00 Test Item Value Reference Range Interpretation Comments C-REACTIVE PROTEIN (test code = 2.9 C-REACTIVE PROTEIN) [facility]2021-10-07 12:55:00 Test Item Value Reference Range Interpretation Comments Vitamin B12 Lvl (test code = Vitamin 720 130-4648 B12 Lvl) [facility]2021-10-07 12:55:00 Test Item Value Reference Range Interpretation Comments Glucose Lvl (test code = Glucose Lvl) 151 65-[address] [facility]2021-10-07 12:55:00 Test Item Value Reference Range Interpretation Comments BUN (test code = BUN) 17 12-[address] [facility]2021-10-07 12:55:00 Test Item Value Reference Range Interpretation Comments Creatinine Lvl (test code = Creatinine 0.49 0.50-1.05 Lvl) [facility]2021-10-07 12:55:00 Test Item Value Reference Range Interpretation Comments Vitamin B12 Lvl (test code = Vitamin 574 085-6088 B12 Lvl) [facility]2021-10-07 12:55:00 Test Item Value Reference Range Interpretation Comments Glucose Lvl (test code = Glucose Lvl) 151 65-[address] [facility]2021-10-07 12:55:00 Test Item Value Reference Range Interpretation Comments BUN (test code = BUN) 17 12-[address] [facility]2021-10-07 12:55:00 Test Item Value Reference Range Interpretation Comments Creatinine Lvl (test code = Creatinine 0.49 0.50-1.05 Lvl) [facility]2021-10-07 12:55:00 Test Item Value Reference Range Interpretation Comments eGFR NON-AFR. TONGAN (test code = 107 eGFR NON-AFR. TONGAN) [facility]2021-10-07 12:55:00 Test Item Value Reference Range Interpretation Comments eGFR (test code = eGFR 124 ) [facility]2021-10-07 12:55:00 Test Item Value Reference Range Interpretation Comments B/C Ratio (test code = B/C Ratio) 35 6-[address] [facility]2021-10-07 12:55:00 Test Item Value Reference Range Interpretation Comments Sodium Lvl (test code = Sodium Lvl) 140 135-[address] [facility]2021-10-07 12:55:00 Test Item Value Reference Range Interpretation Comments Potassium Lvl (test code = Potassium 4.0 3.5-5.3 Lvl) [facility]2021-10-07 12:55:00 Test Item Value Reference Range Interpretation Comments Chloride Lvl (test code = Chloride Lvl) 105 98-[address] [facility]2021-10-07 12:55:00 Test Item Value Reference Range Interpretation Comments CO2 (test code = CO2) 29 20-[address] [facility]2021-10-07 12:55:00 Test Item Value Reference Range Interpretation Comments Calcium Lvl (test code = Calcium Lvl) 8.7 8.6-10.[address] [facility]2021-10-07 12:55:00 Test Item Value Reference Range Interpretation Comments Total Protein (test code = Total 6.8 6.1-8.1 Protein) [facility]2021-10-07 12:55:00 Test Item Value Reference Range Interpretation Comments Albumin Lvl (test code = Albumin Lvl) 3.7 3.6-5.[address] [facility]2021-10-07 12:55:00 Test Item Value Reference Range Interpretation Comments Globulin (test code = Globulin) 3.1 1.9-3.[address] [facility]2021-10-07 12:55:00 Test Item Value Reference Range Interpretation Comments A/G Ratio (test code = A/G Ratio) 1.2 1.0-2.[address] [facility]2021-10-07 12:55:00 Test Item Value Reference Range Interpretation Comments Bili Total (test code = Bili Total) 0.6 0.2-1.[address] [facility]2021-10-07 12:55:00 Test Item Value Reference Range Interpretation Comments Alk Phos (test code = Alk Phos) 59 37-153 [place] 951291-10-07 12:55:00 Test Item Value Reference Range Interpretation Comments ASPARTATE TRANSAMINASE (test code = 18 10-35 ASPARTATE TRANSAMINASE) [place] 951291-10-07 12:55:00 Test Item Value Reference Range Interpretation Comments ALANINE AMINOTRANSFERASE (test code = 23 6-29 ALANINE AMINOTRANSFERASE) [place] 316741-10-07 12:55:00 Test Item Value Reference Range Interpretation Comments WBC X 10x3 (test code = WBC X 10x3) 4.8 3.8-10.8 [place] 316741-10-07 12:55:00 Test Item Value Reference Range Interpretation Comments RBC X 10x6 (test code = RBC X 10x6) 4.50 3.80-5.10 [place] [address]-10-07 12:55:00 Test Item Value Reference Range Interpretation Comments Hgb (test code = Hgb) 12.1 11.7-15.5 [place] [address]-10-07 12:55:00 Test Item Value Reference Range Interpretation Comments Hct (test code = Hct) 37.8 35.0-45.[address] [facility]2021-10-07 12:55:00 Test Item Value Reference Range Interpretation Comments eGFR NON-AFR. TONGAN (test code = 107 eGFR NON-AFR. TONGAN) [facility] CenterEqtrjboEBIZMQCMAV7754-71-20 12:55:00 Test Item Value Reference Range Interpretation Comments MCV (test code = MCV) 84.0 80.0-100.0 [place] 316741-10-07 12:55:00 Test Item Value Reference Range Interpretation Comments MCH (test code = MCH) 26.9 pg 27.0-33.0 [place] 316741-10-07 12:55:00 Test Item Value Reference Range Interpretation Comments MCHC (test code = MCHC) 32.0 32.0-36.0 [place] [address]-10-07 12:55:00 Test Item Value Reference Range Interpretation Comments RDW (test code = RDW) 14.0 11.0-15.0 [place] [address]-10-07 12:55:00 Test Item Value Reference Range Interpretation Comments Platelet (test code = Platelet) 151 140-400 [place] 316741-10-07 12:55:00 Test Item Value Reference Range Interpretation Comments MPV (test code = MPV) 12.1 7.5-12.5 [facility] CenterNydealmKKYDUPBAVX4664-61-35 12:55:00 Test Item Value Reference Range Interpretation Comments Neutrophils # (test code = Neutrophils 3139 7590-5139 #) [facility] CenterHobtdbgIQGDBXAODV2698-78-81 12:55:00 Test Item Value Reference Range Interpretation Comments Lymphocytes # (test code = Lymphocytes 1659 044-3004 #) [facility] CenterNhzpvsfFNSVCXHHRH6805-13-44 12:55:00 Test Item Value Reference Range Interpretation Comments Monocytes # (test code = Monocytes #) 350 200-950 [facility] CenterUnmqhsfYFIXASZSKL6897-54-99 12:55:00 Test Item Value Reference Range Interpretation Comments Eosinophils # (test code = Eosinophils 72 15-500 #) [facility] CenterBbccbsfSFJCRHFLUC5973-37-35 12:55:00 Test Item Value Reference Range Interpretation Comments Basophils # (test code 29 See_Comment [Aut omated message] The = Basophils #) system which generated this result tra nsmitted reference range : <=200. The reference r brice was not used to int erpret this result as normal/abnormal . [facility] CenterRvoyqbfWWHIZOQCMY3951-71-66 12:55:00 Test Item Value Reference Range Interpretation Comments Segs (test code = Segs) 65.4 [facility] CenterPetooyhFUAVQOEEPH0816-74-63 12:55:00 Test Item Value Reference Range Interpretation Comments Lymphocytes (test code = Lymphocytes) 25.2 [facility] CenterZmfttbxYAHIZLNWWH0487-80-34 12:55:00 Test Item Value Reference Range Interpretation Comments Monocytes (test code = Monocytes) 7.3 [facility] CenterSdpmdstBIJXVUOAHD1141-17-59 12:55:00 Test Item Value Reference Range Interpretation Comments Eosinophils (test code = Eosinophils) 1.5 [facility] CenterAiitxpjYBXEVXWGII9457-27-49 12:55:00 Test Item Value Reference Range Interpretation Comments Basophils (test code = Basophils) 0.6 [facility] CenterMhaffieDQFTRVEBMB7807-59-70 12:55:00 Test Item Value Reference Range Interpretation Comments Sed Rate (test code = Sed Rate) 22 [facility]GspnpaeHJARTWIPFG6727-05-83 12:55:00 Test Item Value Reference Range Interpretation Comments C-REACTIVE PROTEIN (test code = 2.9 C-REACTIVE PROTEIN) [facility]2021-10-07 12:55:00 Test Item Value Reference Range Interpretation Comments eGFR (test code = eGFR 124 ) [place] 951291-10-07 12:55:00 Test Item Value Reference Range Interpretation Comments B/C Ratio (test code = B/C Ratio) 35 6-22 [place] 951291-10-07 12:55:00 Test Item Value Reference Range Interpretation Comments Sodium Lvl (test code = Sodium Lvl) 140 135-146 [place] 951291-10-07 12:55:00 Test Item Value Reference Range Interpretation Comments Potassium Lvl (test code = Potassium 4.0 3.5-5.3 Lvl) [place] 951291-10-07 12:55:00 Test Item Value Reference Range Interpretation Comments Chloride Lvl (test code = Chloride Lvl) 105 98-110 [place] 951291-10-07 12:55:00 Test Item Value Reference Range Interpretation Comments CO2 (test code = CO2) 29 20-32 [place] 951291-10-07 12:55:00 Test Item Value Reference Range Interpretation Comments Calcium Lvl (test code = Calcium Lvl) 8.7 8.6-10.4 [place] 951291-10-07 12:55:00 Test Item Value Reference Range Interpretation Comments Total Protein (test code = Total 6.8 6.1-8.1 Protein) [place] 951291-10-07 12:55:00 Test Item Value Reference Range Interpretation Comments Albumin Lvl (test code = Albumin Lvl) 3.7 3.6-5.1 [place] 951291-10-07 12:55:00 Test Item Value Reference Range Interpretation Comments Globulin (test code = Globulin) 3.1 1.9-3.7 [place] 951291-10-07 12:55:00 Test Item Value Reference Range Interpretation Comments A/G Ratio (test code = A/G Ratio) 1.2 1.0-2.[address] [facility]2021-10-07 12:55:00 Test Item Value Reference Range Interpretation Comments Bili Total (test code = Bili Total) 0.6 0.2-1.2 [place] 951291-10-07 12:55:00 Test Item Value Reference Range Interpretation Comments Alk Phos (test code = Alk Phos) 59 37-[address] [facility]2021-10-07 12:55:00 Test Item Value Reference Range Interpretation Comments ASPARTATE TRANSAMINASE (test code = 18 10-35 ASPARTATE TRANSAMINASE) [facility]2021-10-07 12:55:00 Test Item Value Reference Range Interpretation Comments ALANINE AMINOTRANSFERASE (test code = 23 6-29 ALANINE AMINOTRANSFERASE) [place] 316741-10-07 12:55:00 Test Item Value Reference Range Interpretation Comments WBC X 10x3 (test code = WBC X 10x3) 4.8 3.8-10.8 [place] [address]-10-07 12:55:00 Test Item Value Reference Range Interpretation Comments RBC X 10x6 (test code = RBC X 10x6) 4.50 3.80-5.10 [place] [address]-10-07 12:55:00 Test Item Value Reference Range Interpretation Comments Hgb (test code = Hgb) 12.1 11.7-15.5 [place] 316741-10-07 12:55:00 Test Item Value Reference Range Interpretation Comments Hct (test code = Hct) 37.8 35.0-45.0 [place] [address]-10-07 12:55:00 Test Item Value Reference Range Interpretation Comments MCV (test code = MCV) 84.0 80.0-100.0 [place] [address]-10-07 12:55:00 Test Item Value Reference Range Interpretation Comments MCH (test code = MCH) 26.9 pg 27.0-33.0 [place] 316741-10-07 12:55:00 Test Item Value Reference Range Interpretation Comments MCHC (test code = MCHC) 32.0 32.0-36.0 [place] [address]-10-07 12:55:00 Test Item Value Reference Range Interpretation Comments RDW (test code = RDW) 14.0 11.0-15.0 [place] 316741-10-07 12:55:00 Test Item Value Reference Range Interpretation Comments Platelet (test code = Platelet) 151 140-400 [place] 316741-10-07 12:55:00 Test Item Value Reference Range Interpretation Comments MPV (test code = MPV) 12.1 7.5-12.5 [facility] CenterFiutdsjRHXFYUIHJG5546-63-95 12:55:00 Test Item Value Reference Range Interpretation Comments Neutrophils # (test code = Neutrophils 3139 0670-4782 #) [facility] CenterExawucmLXDJTQHIAE3612-91-48 12:55:00 Test Item Value Reference Range Interpretation Comments Lymphocytes # (test code = Lymphocytes 9566 938-2856 #) [facility] CenterUxqdgkzOGUOUJNMOQ0706-18-87 12:55:00 Test Item Value Reference Range Interpretation Comments Monocytes # (test code = Monocytes #) 350 200-950 [facility] CenterAoadjaaNVYHZHASYY3890-72-01 12:55:00 Test Item Value Reference Range Interpretation Comments Eosinophils # (test code = Eosinophils 72 15-500 #) [facility] CenterBmidxemXXFUMJUWGG5156-71-52 12:55:00 Test Item Value Reference Range Interpretation Comments Basophils # (test code 29 See_Comment [Aut omated message] The = Basophils #) system which generated this result tra nsmitted reference range : <=200. The reference r brice was not used to int erpret this result as normal/abnormal . [facility] CenterYqiqevyQFOLKFBCNT8939-57-52 12:55:00 Test Item Value Reference Range Interpretation Comments Segs (test code = Segs) 65.4 [facility] CenterGxhcgnbWXVEERPRYW3711-05-28 12:55:00 Test Item Value Reference Range Interpretation Comments Lymphocytes (test code = Lymphocytes) 25.2 [facility] CenterVdnxmqjTOUQNAWYBZ6773-76-34 12:55:00 Test Item Value Reference Range Interpretation Comments Monocytes (test code = Monocytes) 7.3 [place] 316741-10-07 12:55:00 Test Item Value Reference Range Interpretation Comments Eosinophils (test code = Eosinophils) 1.5 [facility] CenterMjefpijPTWVHRWQDN0856-13-61 12:55:00 Test Item Value Reference Range Interpretation Comments Basophils (test code = Basophils) 0.6 [place] 316741-10-07 12:55:00 Test Item Value Reference Range Interpretation Comments Sed Rate (test code = Sed Rate) 22 [facility] HospitalXayjvieLVCCXIGPAS5121-75-64 12:55:00 Test Item Value Reference Range Interpretation Comments C-REACTIVE PROTEIN (test code = 2.9 C-REACTIVE PROTEIN) [facility]2021-10-07 12:55:00 Test Item Value Reference Range Interpretation Comments Vitamin B12 Lvl (test code = Vitamin 297 778-5740 B12 Lvl) [facility]2021-10-07 12:55:00 Test Item Value Reference Range Interpretation Comments Glucose Lvl (test code = Glucose Lvl) 151 65-[address] [facility]2021-10-07 12:55:00 Test Item Value Reference Range Interpretation Comments BUN (test code = BUN) 17 7-25 [place] 951291-10-07 12:55:00 Test Item Value Reference Range Interpretation Comments Creatinine Lvl (test code = Creatinine 0.49 0.50-1.05 Lvl) [place] 951291-10-07 12:55:00 Test Item Value Reference Range Interpretation Comments eGFR NON-AFR. TONGAN (test code = 107 eGFR NON-AFR. TONGAN) [place] 951291-10-07 12:55:00 Test Item Value Reference Range Interpretation Comments eGFR (test code = eGFR 124 ) [place] 951291-10-07 12:55:00 Test Item Value Reference Range Interpretation Comments B/C Ratio (test code = B/C Ratio) 35 6-22 [place] 951291-10-07 12:55:00 Test Item Value Reference Range Interpretation Comments Sodium Lvl (test code = Sodium Lvl) 140 135-[address] [facility]2021-10-07 12:55:00 Test Item Value Reference Range Interpretation Comments Potassium Lvl (test code = Potassium 4.0 3.5-5.3 Lvl) [facility]2021-10-07 12:55:00 Test Item Value Reference Range Interpretation Comments Chloride Lvl (test code = Chloride Lvl) 105 98-110 [place] 951291-10-07 12:55:00 Test Item Value Reference Range Interpretation Comments CO2 (test code = CO2) 29 20-32 [place] 951291-10-07 12:55:00 Test Item Value Reference Range Interpretation Comments Calcium Lvl (test code = Calcium Lvl) 8.7 8.6-10.4 [place] 951291-10-07 12:55:00 Test Item Value Reference Range Interpretation Comments Total Protein (test code = Total 6.8 6.1-8.1 Protein) [facility]2021-10-07 12:55:00 Test Item Value Reference Range Interpretation Comments Albumin Lvl (test code = Albumin Lvl) 3.7 3.6-5.1 [place] 951291-10-07 12:55:00 Test Item Value Reference Range Interpretation Comments Globulin (test code = Globulin) 3.1 1.9-3.7 [place] 951291-10-07 12:55:00 Test Item Value Reference Range Interpretation Comments A/G Ratio (test code = A/G Ratio) 1.2 1.0-2.5 [place] 951291-10-07 12:55:00 Test Item Value Reference Range Interpretation Comments Bili Total (test code = Bili Total) 0.6 0.2-1.2 [place] 951291-10-07 12:55:00 Test Item Value Reference Range Interpretation Comments Alk Phos (test code = Alk Phos) 59 37-[address] [facility]2021-10-07 12:55:00 Test Item Value Reference Range Interpretation Comments ASPARTATE TRANSAMINASE (test code = 18 10-35 ASPARTATE TRANSAMINASE) [facility]2021-10-07 12:55:00 Test Item Value Reference Range Interpretation Comments ALANINE AMINOTRANSFERASE (test code = 23 6-29 ALANINE AMINOTRANSFERASE) [facility] CenterTlssakqIRIOACETDE4509-69-20 12:55:00 Test Item Value Reference Range Interpretation Comments WBC X 10x3 (test code = WBC X 10x3) 4.8 3.8-10.8 [place] 316741-10-07 12:55:00 Test Item Value Reference Range Interpretation Comments RBC X 10x6 (test code = RBC X 10x6) 4.50 3.80-5.10 [place] 316741-10-07 12:55:00 Test Item Value Reference Range Interpretation Comments Hgb (test code = Hgb) 12.1 11.7-15.5 [place] 316741-10-07 12:55:00 Test Item Value Reference Range Interpretation Comments Hct (test code = Hct) 37.8 35.0-45.0 [place] 316741-10-07 12:55:00 Test Item Value Reference Range Interpretation Comments MCV (test code = MCV) 84.0 80.0-100.0 [place] 316741-10-07 12:55:00 Test Item Value Reference Range Interpretation Comments MCH (test code = MCH) 26.9 pg 27.0-33.0 [facility] CenterBnsvgtgWPCBVMLYWU4054-61-75 12:55:00 Test Item Value Reference Range Interpretation Comments MCHC (test code = MCHC) 32.0 32.0-36.0 [place] 316741-10-07 12:55:00 Test Item Value Reference Range Interpretation Comments RDW (test code = RDW) 14.0 11.0-15.0 [facility] CenterIjprppnLBCEQKSNHH7966-48-34 12:55:00 Test Item Value Reference Range Interpretation Comments Platelet (test code = Platelet) 151 140-400 [facility] CenterClhuxogIYOPWBXMKG4370-87-91 12:55:00 Test Item Value Reference Range Interpretation Comments MPV (test code = MPV) 12.1 7.5-12.5 [place] 316741-10-07 12:55:00 Test Item Value Reference Range Interpretation Comments Neutrophils # (test code = Neutrophils 3139 7496-1847 #) [facility] CenterTenohwbLRCAJZZENS0195-26-11 12:55:00 Test Item Value Reference Range Interpretation Comments Lymphocytes # (test code = Lymphocytes 7256 153-7620 #) [facility] CenterZagkcliQPKRTSFWVX7835-89-53 12:55:00 Test Item Value Reference Range Interpretation Comments Monocytes # (test code = Monocytes #) 350 200-950 [facility] CenterTpilyhlUFVDWWFZCI7770-25-62 12:55:00 Test Item Value Reference Range Interpretation Comments Eosinophils # (test code = Eosinophils 72 15-500 #) [place] 316741-10-07 12:55:00 Test Item Value Reference Range Interpretation Comments Basophils # (test code 29 See_Comment [Aut omated message] The = Basophils #) system which generated this result tra nsmitted reference range : <=200. The reference r brice was not used to int erpret this result as normal/abnormal . [facility] CenterQkeelzfBZSINOAHGO5226-84-05 12:55:00 Test Item Value Reference Range Interpretation Comments Segs (test code = Segs) 65.4 [place] 316741-10-07 12:55:00 Test Item Value Reference Range Interpretation Comments Lymphocytes (test code = Lymphocytes) 25.2 [place] 316741-10-07 12:55:00 Test Item Value Reference Range Interpretation Comments Monocytes (test code = Monocytes) 7.3 [facility] CenterGudvltsCEGSQCTXXD3141-09-20 12:55:00 Test Item Value Reference Range Interpretation Comments Eosinophils (test code = Eosinophils) 1.5 [place] 316741-10-07 12:55:00 Test Item Value Reference Range Interpretation Comments Basophils (test code = Basophils) 0.6 [place] 316741-10-07 12:55:00 Test Item Value Reference Range Interpretation Comments Sed Rate (test code = Sed Rate) [address] [facility] [address]KrkizznCWZUZHVHHP8546-22-94 12:55:00 Test Item Value Reference Range Interpretation Comments C-REACTIVE PROTEIN (test code = 2.9 C-REACTIVE PROTEIN) [facility]2021-10-07 12:55:00 Test Item Value Reference Range Interpretation Comments Vitamin B12 Lvl (test code = Vitamin 197 479-3762 B12 Lvl) [facility]2021-10-07 12:55:00 Test Item Value Reference Range Interpretation Comments Glucose Lvl (test code = Glucose Lvl) 151 65-[address] [facility]2021-10-07 12:55:00 Test Item Value Reference Range Interpretation Comments BUN (test code = BUN) 17 7-25 [facility]2021-10-07 12:55:00 Test Item Value Reference Range Interpretation Comments Vitamin B12 Lvl (test code = Vitamin 305 031-5921 B12 Lvl) [facility]2021-10-07 12:55:00 Test Item Value Reference Range Interpretation Comments Creatinine Lvl (test code = Creatinine 0.49 0.50-1.05 Lvl) [facility]2021-10-07 12:55:00 Test Item Value Reference Range Interpretation Comments eGFR NON-AFR. TONGAN (test code = 107 eGFR NON-AFR. TONGAN) [facility]2021-10-07 12:55:00 Test Item Value Reference Range Interpretation Comments eGFR (test code = eGFR 124 ) [facility]2021-10-07 12:55:00 Test Item Value Reference Range Interpretation Comments B/C Ratio (test code = B/C Ratio) 35 6-22 [place] 951291-10-07 12:55:00 Test Item Value Reference Range Interpretation Comments Sodium Lvl (test code = Sodium Lvl) 140 135-146 [place] 951291-10-07 12:55:00 Test Item Value Reference Range Interpretation Comments Potassium Lvl (test code = Potassium 4.0 3.5-5.3 Lvl) [place] 951291-10-07 12:55:00 Test Item Value Reference Range Interpretation Comments Chloride Lvl (test code = Chloride Lvl) 105 98-110 [place] 951291-10-07 12:55:00 Test Item Value Reference Range Interpretation Comments CO2 (test code = CO2) 29 20-32 [place] 951291-10-07 12:55:00 Test Item Value Reference Range Interpretation Comments Calcium Lvl (test code = Calcium Lvl) 8.7 8.6-10.4 [place] 951291-10-07 12:55:00 Test Item Value Reference Range Interpretation Comments Total Protein (test code = Total 6.8 6.1-8.1 Protein) [place] 951291-10-07 12:55:00 Test Item Value Reference Range Interpretation Comments Glucose Lvl (test code = Glucose Lvl) 151 65-99 [place] 951291-10-07 12:55:00 Test Item Value Reference Range Interpretation Comments Albumin Lvl (test code = Albumin Lvl) 3.7 3.6-5.1 [place] 951291-10-07 12:55:00 Test Item Value Reference Range Interpretation Comments Globulin (test code = Globulin) 3.1 1.9-3.7 [place] 951291-10-07 12:55:00 Test Item Value Reference Range Interpretation Comments A/G Ratio (test code = A/G Ratio) 1.2 1.0-2.5 [place] 951291-10-07 12:55:00 Test Item Value Reference Range Interpretation Comments Bili Total (test code = Bili Total) 0.6 0.2-1.2 [place] 951291-10-07 12:55:00 Test Item Value Reference Range Interpretation Comments Alk Phos (test code = Alk Phos) 59 37-153 [place] 951291-10-07 12:55:00 Test Item Value Reference Range Interpretation Comments ASPARTATE TRANSAMINASE (test code = 18 10-35 ASPARTATE TRANSAMINASE) [place] 951291-10-07 12:55:00 Test Item Value Reference Range Interpretation Comments ALANINE AMINOTRANSFERASE (test code = 23 6-29 ALANINE AMINOTRANSFERASE) [place] 316741-10-07 12:55:00 Test Item Value Reference Range Interpretation Comments WBC X 10x3 (test code = WBC X 10x3) 4.8 3.8-10.8 [place] 316741-10-07 12:55:00 Test Item Value Reference Range Interpretation Comments RBC X 10x6 (test code = RBC X 10x6) 4.50 3.80-5.10 [place] 316741-10-07 12:55:00 Test Item Value Reference Range Interpretation Comments Hgb (test code = Hgb) 12.1 11.7-15.[address] [facility]2021-10-07 12:55:00 Test Item Value Reference Range Interpretation Comments BUN (test code = BUN) 17 7-25 [place] 316741-10-07 12:55:00 Test Item Value Reference Range Interpretation Comments Hct (test code = Hct) 37.8 35.0-45.0 [facility] CenterLuxeejzYMBHBYOUMZ1110-07-96 12:55:00 Test Item Value Reference Range Interpretation Comments MCV (test code = MCV) 84.0 80.0-100.0 [place] 316741-10-07 12:55:00 Test Item Value Reference Range Interpretation Comments MCH (test code = MCH) 26.9 pg 27.0-33.0 [place] 316741-10-07 12:55:00 Test Item Value Reference Range Interpretation Comments MCHC (test code = MCHC) 32.0 32.0-36.0 [place] 316741-10-07 12:55:00 Test Item Value Reference Range Interpretation Comments RDW (test code = RDW) 14.0 11.0-15.0 [place] [address]-10-07 12:55:00 Test Item Value Reference Range Interpretation Comments Platelet (test code = Platelet) 151 140-400 [place] 316741-10-07 12:55:00 Test Item Value Reference Range Interpretation Comments MPV (test code = MPV) 12.1 7.5-12.5 [place] 316741-10-07 12:55:00 Test Item Value Reference Range Interpretation Comments Neutrophils # (test code = Neutrophils 3139 8662-9582 #) [facility] CenterEdkymubTCEZHJHLHY8514-55-29 12:55:00 Test Item Value Reference Range Interpretation Comments Lymphocytes # (test code = Lymphocytes 8710 007-2611 #) [facility] CenterBvsoaamKPMPRACZRM9770-02-98 12:55:00 Test Item Value Reference Range Interpretation Comments Monocytes # (test code = Monocytes #) 350 200-[address] [facility]2021-10-07 12:55:00 Test Item Value Reference Range Interpretation Comments Creatinine Lvl (test code = Creatinine 0.49 0.50-1.05 Lvl) [facility] CenterLmitklrAMUTIXBBZB7806-12-11 12:55:00 Test Item Value Reference Range Interpretation Comments Eosinophils # (test code = Eosinophils 72 15-500 #) [facility] CenterZhkfhyoHQGHMXFPYL5673-65-29 12:55:00 Test Item Value Reference Range Interpretation Comments Basophils # (test code 29 See_Comment [Aut omated message] The = Basophils #) system which generated this result tra nsmitted reference range : <=200. The reference r brice was not used to int erpret this result as normal/abnormal . [facility] CenterZqljbufKAQIXYBQGD0862-74-60 12:55:00 Test Item Value Reference Range Interpretation Comments Segs (test code = Segs) 65.4 [facility] CenterAbwkibhDYEDXVQSET1787-33-77 12:55:00 Test Item Value Reference Range Interpretation Comments Lymphocytes (test code = Lymphocytes) 25.2 [place] 316741-10-07 12:55:00 Test Item Value Reference Range Interpretation Comments Monocytes (test code = Monocytes) 7.3 [place] 316741-10-07 12:55:00 Test Item Value Reference Range Interpretation Comments Eosinophils (test code = Eosinophils) 1.5 [place] 316741-10-07 12:55:00 Test Item Value Reference Range Interpretation Comments Basophils (test code = Basophils) 0.6 [place] 316741-10-07 12:55:00 Test Item Value Reference Range Interpretation Comments Sed Rate (test code = Sed Rate) 22 [facility] HospitalFicwxsnUSFWQUVDBE6271-19-23 12:55:00 Test Item Value Reference Range Interpretation Comments C-REACTIVE PROTEIN (test code = 2.9 C-REACTIVE PROTEIN) [facility]2021-10-07 12:55:00 Test Item Value Reference Range Interpretation Comments eGFR NON-AFR. TONGAN (test code = 107 eGFR NON-AFR. TONGAN) [facility]2021-10-07 12:55:00 Test Item Value Reference Range Interpretation Comments Vitamin B12 Lvl (test code = Vitamin 761 052-1528 B12 Lvl) [place] 951291-10-07 12:55:00 Test Item Value Reference Range Interpretation Comments Glucose Lvl (test code = Glucose Lvl) 151 65-99 [place] 951291-10-07 12:55:00 Test Item Value Reference Range Interpretation Comments BUN (test code = BUN) 17 7-25 [place] 951291-10-07 12:55:00 Test Item Value Reference Range Interpretation Comments eGFR (test code = eGFR 124 ) [facility]2021-10-07 12:55:00 Test Item Value Reference Range Interpretation Comments Creatinine Lvl (test code = Creatinine 0.49 0.50-1.05 Lvl) [facility]2021-10-07 12:55:00 Test Item Value Reference Range Interpretation Comments eGFR NON-AFR. TONGAN (test code = 107 eGFR NON-AFR. TONGAN) [place] 951291-10-07 12:55:00 Test Item Value Reference Range Interpretation Comments eGFR (test code = eGFR 124 ) [facility]2021-10-07 12:55:00 Test Item Value Reference Range Interpretation Comments B/C Ratio (test code = B/C Ratio) 35 6-[address] [facility]2021-10-07 12:55:00 Test Item Value Reference Range Interpretation Comments Sodium Lvl (test code = Sodium Lvl) 140 135-146 [place] 951291-10-07 12:55:00 Test Item Value Reference Range Interpretation Comments Potassium Lvl (test code = Potassium 4.0 3.5-5.3 Lvl) [facility]2021-10-07 12:55:00 Test Item Value Reference Range Interpretation Comments Chloride Lvl (test code = Chloride Lvl) 105 98-110 [place] 951291-10-07 12:55:00 Test Item Value Reference Range Interpretation Comments CO2 (test code = CO2) 29 20-32 [place] 951291-10-07 12:55:00 Test Item Value Reference Range Interpretation Comments Calcium Lvl (test code = Calcium Lvl) 8.7 8.6-10.4 [place] 951291-10-07 12:55:00 Test Item Value Reference Range Interpretation Comments Total Protein (test code = Total 6.8 6.1-8.1 Protein) [place] 951291-10-07 12:55:00 Test Item Value Reference Range Interpretation Comments B/C Ratio (test code = B/C Ratio) 35 6-22 [place] 951291-10-07 12:55:00 Test Item Value Reference Range Interpretation Comments Albumin Lvl (test code = Albumin Lvl) 3.7 3.6-5.1 [place] 951291-10-07 12:55:00 Test Item Value Reference Range Interpretation Comments Globulin (test code = Globulin) 3.1 1.9-3.7 [place] 951291-10-07 12:55:00 Test Item Value Reference Range Interpretation Comments A/G Ratio (test code = A/G Ratio) 1.2 1.0-2.5 [place] 951291-10-07 12:55:00 Test Item Value Reference Range Interpretation Comments Bili Total (test code = Bili Total) 0.6 0.2-1.2 [place] 951291-10-07 12:55:00 Test Item Value Reference Range Interpretation Comments Alk Phos (test code = Alk Phos) 59 37-153 [place] 951291-10-07 12:55:00 Test Item Value Reference Range Interpretation Comments ASPARTATE TRANSAMINASE (test code = 18 10-35 ASPARTATE TRANSAMINASE) [place] 951291-10-07 12:55:00 Test Item Value Reference Range Interpretation Comments ALANINE AMINOTRANSFERASE (test code = 23 6-29 ALANINE AMINOTRANSFERASE) [place] 316741-10-07 12:55:00 Test Item Value Reference Range Interpretation Comments WBC X 10x3 (test code = WBC X 10x3) 4.8 3.8-10.8 [place] 316741-10-07 12:55:00 Test Item Value Reference Range Interpretation Comments RBC X 10x6 (test code = RBC X 10x6) 4.50 3.80-5.[address]10-07 12:55:00 Test Item Value Reference Range Interpretation Comments Hgb (test code = Hgb) 12.1 11.7-15.[address] [facility]2021-10-07 12:55:00 Test Item Value Reference Range Interpretation Comments Sodium Lvl (test code = Sodium Lvl) 140 135-146 [place] 316741-10-07 12:55:00 Test Item Value Reference Range Interpretation Comments Hct (test code = Hct) 37.8 35.0-45.0 [facility]TfcqkazYXTGMSRBGI8940-83-45 12:55:00 Test Item Value Reference Range Interpretation Comments MCV (test code = MCV) 84.0 80.0-100.0 [place] 316741-10-07 12:55:00 Test Item Value Reference Range Interpretation Comments MCH (test code = MCH) 26.9 pg 27.0-33.0 [facility] CenterSkrbfqpAUDDFKNAFO7886-04-46 12:55:00 Test Item Value Reference Range Interpretation Comments MCHC (test code = MCHC) 32.0 32.0-36.0 [facility] CenterZwweuzcYKACMXNJTI1207-43-51 12:55:00 Test Item Value Reference Range Interpretation Comments RDW (test code = RDW) 14.0 11.0-15.0 [facility] CenterWceybvaCYUBFGSGFJ7950-05-31 12:55:00 Test Item Value Reference Range Interpretation Comments Platelet (test code = Platelet) 151 140-400 [facility] CenterWzlghrcIOKKHHFGIS2982-98-43 12:55:00 Test Item Value Reference Range Interpretation Comments MPV (test code = MPV) 12.1 7.5-12.5 [facility] CenterMcxfctzWENFAPYWZJ0332-41-65 12:55:00 Test Item Value Reference Range Interpretation Comments Neutrophils # (test code = Neutrophils 3139 0577-7295 #) [facility] CenterEyshdrjRLOFYEFETT3192-37-39 12:55:00 Test Item Value Reference Range Interpretation Comments Lymphocytes # (test code = Lymphocytes 3054 794-8265 #) [facility] CenterHoyhabbANSNIQBFEN9309-28-88 12:55:00 Test Item Value Reference Range Interpretation Comments Monocytes # (test code = Monocytes #) 350 200-[address] [facility]2021-10-07 12:55:00 Test Item Value Reference Range Interpretation Comments Potassium Lvl (test code = Potassium 4.0 3.5-5.3 Lvl) [facility] CenterMtancqnMZRKGRMZUI3283-21-19 12:55:00 Test Item Value Reference Range Interpretation Comments Eosinophils # (test code = Eosinophils 72 15-500 #) [facility] CenterCbckncnBLEIEUWDRJ0656-90-45 12:55:00 Test Item Value Reference Range Interpretation Comments Basophils # (test code 29 See_Comment [Aut omated message] The = Basophils #) system which generated this result tra nsmitted reference range : <=200. The reference r brice was not used to int erpret this result as normal/abnormal . [facility] CenterYeymclsJRORXENGJT5416-88-07 12:55:00 Test Item Value Reference Range Interpretation Comments Segs (test code = Segs) 65.4 [place] 316741-10-07 12:55:00 Test Item Value Reference Range Interpretation Comments Lymphocytes (test code = Lymphocytes) 25.2 [facility] CenterJhiljwoPZQKCSGFIZ9053-25-18 12:55:00 Test Item Value Reference Range Interpretation Comments Monocytes (test code = Monocytes) 7.3 [facility] CenterXcmjfopIXVHSTZICK2744-97-33 12:55:00 Test Item Value Reference Range Interpretation Comments Eosinophils (test code = Eosinophils) 1.5 [place] 316741-10-07 12:55:00 Test Item Value Reference Range Interpretation Comments Basophils (test code = Basophils) 0.6 [place] 316741-10-07 12:55:00 Test Item Value Reference Range Interpretation Comments Sed Rate (test code = Sed Rate) [address] [facility] [address] HospitalYrbhdcdNFGGOKDSDS8362-63-29 12:55:00 Test Item Value Reference Range Interpretation Comments C-REACTIVE PROTEIN (test code = 2.9 C-REACTIVE PROTEIN) [facility]2021-10-07 12:55:00 Test Item Value Reference Range Interpretation Comments Chloride Lvl (test code = Chloride Lvl) 105 98-110 [facility]2021-10-07 12:55:00 Test Item Value Reference Range Interpretation Comments Vitamin B12 Lvl (test code = Vitamin [phone] B12 Lvl) [facility]2021-10-07 12:55:00 Test Item Value Reference Range Interpretation Comments Glucose Lvl (test code = Glucose Lvl) 151 65-[address] [facility]2021-10-07 12:55:00 Test Item Value Reference Range Interpretation Comments BUN (test code = BUN) 17 7-[address] [facility]2021-10-07 12:55:00 Test Item Value Reference Range Interpretation Comments CO2 (test code = CO2) [facility]2021-10-07 12:55:00 Test Item Value Reference Range Interpretation Comments Creatinine Lvl (test code = Creatinine 0.49 0.50-1.05 Lvl) [facility]2021-10-07 12:55:00 Test Item Value Reference Range Interpretation Comments eGFR NON-AFR. TONGAN (test code = 107 eGFR NON-AFR. TONGAN) [facility]2021-10-07 12:55:00 Test Item Value Reference Range Interpretation Comments eGFR (test code = eGFR 124 ) [facility]2021-10-07 12:55:00 Test Item Value Reference Range Interpretation Comments B/C Ratio (test code = B/C Ratio) 35 6-[address] [facility]2021-10-07 12:55:00 Test Item Value Reference Range Interpretation Comments Sodium Lvl (test code = Sodium Lvl) 140 135-[address] [facility]2021-10-07 12:55:00 Test Item Value Reference Range Interpretation Comments Potassium Lvl (test code = Potassium 4.0 3.5-5.3 Lvl) [facility]2021-10-07 12:55:00 Test Item Value Reference Range Interpretation Comments Chloride Lvl (test code = Chloride Lvl) 105 98-110 [place] 951291-10-07 12:55:00 Test Item Value Reference Range Interpretation Comments CO2 (test code = CO2) [address] [facility]2021-10-07 12:55:00 Test Item Value Reference Range Interpretation Comments Calcium Lvl (test code = Calcium Lvl) 8.7 8.6-10.[address] [facility]2021-10-07 12:55:00 Test Item Value Reference Range Interpretation Comments Total Protein (test code = Total 6.8 6.1-8.1 Protein) [facility]2021-10-07 12:55:00 Test Item Value Reference Range Interpretation Comments Calcium Lvl (test code = Calcium Lvl) 8.7 8.6-10.4 [place] 951291-10-07 12:55:00 Test Item Value Reference Range Interpretation Comments Albumin Lvl (test code = Albumin Lvl) 3.7 3.6-5.1 [place] 951291-10-07 12:55:00 Test Item Value Reference Range Interpretation Comments Globulin (test code = Globulin) 3.1 1.9-3.7 [place] 951291-10-07 12:55:00 Test Item Value Reference Range Interpretation Comments A/G Ratio (test code = A/G Ratio) 1.2 1.0-2.5 [place] [address]-10-07 12:55:00 Test Item Value Reference Range Interpretation Comments Bili Total (test code = Bili Total) 0.6 0.2-1.2 [place] 951291-10-07 12:55:00 Test Item Value Reference Range Interpretation Comments Alk Phos (test code = Alk Phos) 59 37-153 [place] 951291-10-07 12:55:00 Test Item Value Reference Range Interpretation Comments ASPARTATE TRANSAMINASE (test code = 18 10-35 ASPARTATE TRANSAMINASE) [place] 951291-10-07 12:55:00 Test Item Value Reference Range Interpretation Comments ALANINE AMINOTRANSFERASE (test code = 23 6-29 ALANINE AMINOTRANSFERASE) [place] 316741-10-07 12:55:00 Test Item Value Reference Range Interpretation Comments WBC X 10x3 (test code = WBC X 10x3) 4.8 3.8-10.8 [place] 316741-10-07 12:55:00 Test Item Value Reference Range Interpretation Comments RBC X 10x6 (test code = RBC X 10x6) 4.50 3.80-5.10 [place] [address]-10-07 12:55:00 Test Item Value Reference Range Interpretation Comments Hgb (test code = Hgb) 12.1 11.7-15.5 [place] 951291-10-07 12:55:00 Test Item Value Reference Range Interpretation Comments Total Protein (test code = Total 6.8 6.1-8.1 Protein) [place] 316741-10-07 12:55:00 Test Item Value Reference Range Interpretation Comments Hct (test code = Hct) 37.8 35.0-45.0 [address]10-07 12:55:00 Test Item Value Reference Range Interpretation Comments MCV (test code = MCV) 84.0 80.0-100.0 [place] 316741-10-07 12:55:00 Test Item Value Reference Range Interpretation Comments MCH (test code = MCH) 26.9 pg 27.0-33.0 [facility] CenterIktrqwwTLXXTJPSWK4199-40-45 12:55:00 Test Item Value Reference Range Interpretation Comments MCHC (test code = MCHC) 32.0 32.0-36.0 [facility] CenterGueufhhOSSQCDICQB0215-32-91 12:55:00 Test Item Value Reference Range Interpretation Comments RDW (test code = RDW) 14.0 11.0-15.0 [facility] CenterFiixsukANNTVXPNWC1018-69-55 12:55:00 Test Item Value Reference Range Interpretation Comments Platelet (test code = Platelet) 151 140-400 [facility] CenterBwccgffUSEWIIDGQP5683-03-43 12:55:00 Test Item Value Reference Range Interpretation Comments MPV (test code = MPV) 12.1 7.5-12.5 [facility] CenterUroaclmFCMCVJFNBR3707-54-28 12:55:00 Test Item Value Reference Range Interpretation Comments Neutrophils # (test code = Neutrophils 3139 9756-2093 #) [facility] CenterKfgzhwsFJUVFSOBUI5886-59-77 12:55:00 Test Item Value Reference Range Interpretation Comments Lymphocytes # (test code = Lymphocytes 1252 808-1150 #) [facility] CenterSdgkqgxHWRBPGZHAD5638-07-66 12:55:00 Test Item Value Reference Range Interpretation Comments Monocytes # (test code = Monocytes #) 350 200-[address] [facility]2021-10-07 12:55:00 Test Item Value Reference Range Interpretation Comments Albumin Lvl (test code = Albumin Lvl) 3.7 3.6-5.1 [facility] CenterPzqdkehECGXTBYZNZ4387-17-06 12:55:00 Test Item Value Reference Range Interpretation Comments Eosinophils # (test code = Eosinophils 72 15-500 #) [facility] CenterIfkbcdlPWMOTCNJRU3991-85-06 12:55:00 Test Item Value Reference Range Interpretation Comments Basophils # (test code 29 See_Comment [Aut omated message] The = Basophils #) system which generated this result tra nsmitted reference range : <=200. The reference r brice was not used to int erpret this result as normal/abnormal . [facility] CenterOklgcfrEOFJFRLUFN9285-09-05 12:55:00 Test Item Value Reference Range Interpretation Comments Segs (test code = Segs) 65.4 [place] 316741-10-07 12:55:00 Test Item Value Reference Range Interpretation Comments Lymphocytes (test code = Lymphocytes) 25.2 [place] 316741-10-07 12:55:00 Test Item Value Reference Range Interpretation Comments Monocytes (test code = Monocytes) 7.3 [place] 316741-10-07 12:55:00 Test Item Value Reference Range Interpretation Comments Eosinophils (test code = Eosinophils) 1.5 [place] 316741-10-07 12:55:00 Test Item Value Reference Range Interpretation Comments Basophils (test code = Basophils) 0.6 [place] 316741-10-07 12:55:00 Test Item Value Reference Range Interpretation Comments Sed Rate (test code = Sed Rate) [address] [facility] [address] HospitalRupehivRULPUNPVFE7548-25-84 12:55:00 Test Item Value Reference Range Interpretation Comments C-REACTIVE PROTEIN (test code = 2.9 C-REACTIVE PROTEIN) [facility]2021-10-07 12:55:00 Test Item Value Reference Range Interpretation Comments Globulin (test code = Globulin) 3.1 1.9-3.7 [facility]2021-10-07 12:55:00 Test Item Value Reference Range Interpretation Comments Vitamin B12 Lvl (test code = Vitamin [phone] B12 Lvl) [facility]2021-10-07 12:55:00 Test Item Value Reference Range Interpretation Comments Glucose Lvl (test code = Glucose Lvl) 151 65-[address] [facility]2021-10-07 12:55:00 Test Item Value Reference Range Interpretation Comments BUN (test code = BUN) 17 7-25 [place] 951291-10-07 12:55:00 Test Item Value Reference Range Interpretation Comments A/G Ratio (test code = A/G Ratio) 1.2 1.0-2.[address] [facility]2021-10-07 12:55:00 Test Item Value Reference Range Interpretation Comments Creatinine Lvl (test code = Creatinine 0.49 0.50-1.05 Lvl) [facility]2021-10-07 12:55:00 Test Item Value Reference Range Interpretation Comments eGFR NON-AFR. TONGAN (test code = 107 eGFR NON-AFR. TONGAN) [facility]2021-10-07 12:55:00 Test Item Value Reference Range Interpretation Comments eGFR (test code = eGFR 124 ) [place] 951291-10-07 12:55:00 Test Item Value Reference Range Interpretation Comments B/C Ratio (test code = B/C Ratio) 35 6-22 [place] 951291-10-07 12:55:00 Test Item Value Reference Range Interpretation Comments Sodium Lvl (test code = Sodium Lvl) 140 135-146 [place] 951291-10-07 12:55:00 Test Item Value Reference Range Interpretation Comments Potassium Lvl (test code = Potassium 4.0 3.5-5.3 Lvl) [facility]2021-10-07 12:55:00 Test Item Value Reference Range Interpretation Comments Chloride Lvl (test code = Chloride Lvl) 105 98-[address] [facility]2021-10-07 12:55:00 Test Item Value Reference Range Interpretation Comments CO2 (test code = CO2) 29 20-[address] [facility]2021-10-07 12:55:00 Test Item Value Reference Range Interpretation Comments Calcium Lvl (test code = Calcium Lvl) 8.7 8.6-10.4 [place] 951291-10-07 12:55:00 Test Item Value Reference Range Interpretation Comments Total Protein (test code = Total 6.8 6.1-8.1 Protein) [place] 951291-10-07 12:55:00 Test Item Value Reference Range Interpretation Comments Bili Total (test code = Bili Total) 0.6 0.2-1.2 [place] 951291-10-07 12:55:00 Test Item Value Reference Range Interpretation Comments Albumin Lvl (test code = Albumin Lvl) 3.7 3.6-5.[address] [facility]2021-10-07 12:55:00 Test Item Value Reference Range Interpretation Comments Globulin (test code = Globulin) 3.1 1.9-3.7 [place] 951291-10-07 12:55:00 Test Item Value Reference Range Interpretation Comments A/G Ratio (test code = A/G Ratio) 1.2 1.0-2.5 [place] 951291-10-07 12:55:00 Test Item Value Reference Range Interpretation Comments Bili Total (test code = Bili Total) 0.6 0.2-1.2 [place] 951291-10-07 12:55:00 Test Item Value Reference Range Interpretation Comments Alk Phos (test code = Alk Phos) 59 37-[address] [facility]2021-10-07 12:55:00 Test Item Value Reference Range Interpretation Comments ASPARTATE TRANSAMINASE (test code = 18 10-35 ASPARTATE TRANSAMINASE) [facility]2021-10-07 12:55:00 Test Item Value Reference Range Interpretation Comments ALANINE AMINOTRANSFERASE (test code = 23 6-29 ALANINE AMINOTRANSFERASE) [place] 3167[place]-10-07 12:55:00 Test Item Value Reference Range Interpretation Comments WBC X 10x3 (test code = WBC X 10x3) 4.8 3.8-10.8 [place] 316741-10-07 12:55:00 Test Item Value Reference Range Interpretation Comments RBC X 10x6 (test code = RBC X 10x6) 4.50 3.80-5.10 [place] 316741-10-07 12:55:00 Test Item Value Reference Range Interpretation Comments Hgb (test code = Hgb) 12.1 11.7-15.[address] [facility]2021-10-07 12:55:00 Test Item Value Reference Range Interpretation Comments Alk Phos (test code = Alk Phos) 59 37-153 [place] 316741-10-07 12:55:00 Test Item Value Reference Range Interpretation Comments Hct (test code = Hct) 37.8 35.0-45.0 [place] 316741-10-07 12:55:00 Test Item Value Reference Range Interpretation Comments MCV (test code = MCV) 84.0 80.0-100.0 [place] 316741-10-07 12:55:00 Test Item Value Reference Range Interpretation Comments MCH (test code = MCH) 26.9 pg 27.0-33.0 [place] 316741-10-07 12:55:00 Test Item Value Reference Range Interpretation Comments MCHC (test code = MCHC) 32.0 32.0-36.0 [facility] CenterTiekotgAVXCXCLGBI3680-91-12 12:55:00 Test Item Value Reference Range Interpretation Comments RDW (test code = RDW) 14.0 11.0-15.0 [facility] CenterLtmgxnqRBGVIAGXCD1700-74-20 12:55:00 Test Item Value Reference Range Interpretation Comments Platelet (test code = Platelet) 151 140-400 [facility] CenterAfidrrdMUPTTJLOOE8154-13-22 12:55:00 Test Item Value Reference Range Interpretation Comments MPV (test code = MPV) 12.1 7.5-12.5 [place] 316741-10-07 12:55:00 Test Item Value Reference Range Interpretation Comments Neutrophils # (test code = Neutrophils 3139 9151-0220 #) [facility] CenterHiglzreLOCOEWLIPF8799-47-00 12:55:00 Test Item Value Reference Range Interpretation Comments Lymphocytes # (test code = Lymphocytes 0306 813-6084 #) [facility] CenterAjispaoHJRFIGZSBI7711-85-52 12:55:00 Test Item Value Reference Range Interpretation Comments Monocytes # (test code = Monocytes #) 350 200-[address] [facility]2021-10-07 12:55:00 Test Item Value Reference Range Interpretation Comments ASPARTATE TRANSAMINASE (test code = 18 10-35 ASPARTATE TRANSAMINASE) [facility] CenterNjtikyoCQKHMYTTEY2414-23-29 12:55:00 Test Item Value Reference Range Interpretation Comments Eosinophils # (test code = Eosinophils 72 15-500 #) [facility] CenterEdedkfmIPDUYNUCGT0234-20-74 12:55:00 Test Item Value Reference Range Interpretation Comments Basophils # (test code 29 See_Comment [Aut omated message] The = Basophils #) system which generated this result tra nsmitted reference range : <=200. The reference r brice was not used to int erpret this result as normal/abnormal . [facility] CenterIsrjlwvNTNGKGMUIC8873-48-57 12:55:00 Test Item Value Reference Range Interpretation Comments Segs (test code = Segs) 65.4 [place] 316741-10-07 12:55:00 Test Item Value Reference Range Interpretation Comments Lymphocytes (test code = Lymphocytes) 25.2 [place] 316741-10-07 12:55:00 Test Item Value Reference Range Interpretation Comments Monocytes (test code = Monocytes) 7.3 [place] 316741-10-07 12:55:00 Test Item Value Reference Range Interpretation Comments Eosinophils (test code = Eosinophils) 1.5 [place] 316741-10-07 12:55:00 Test Item Value Reference Range Interpretation Comments Basophils (test code = Basophils) 0.6 [place] 316741-10-07 12:55:00 Test Item Value Reference Range Interpretation Comments Sed Rate (test code = Sed Rate) [address] [facility] [address] HospitalFgqtlyrSLXBEDMOEC6037-19-96 12:55:00 Test Item Value Reference Range Interpretation Comments C-REACTIVE PROTEIN (test code = 2.9 C-REACTIVE PROTEIN) [place] 951291-10-07 12:55:00 Test Item Value Reference Range Interpretation Comments ALANINE AMINOTRANSFERASE (test code = 23 6-29 ALANINE AMINOTRANSFERASE) [facility]2021-10-07 12:55:00 Test Item Value Reference Range Interpretation Comments Vitamin B12 Lvl (test code = Vitamin [phone] B12 Lvl) [facility]2021-10-07 12:55:00 Test Item Value Reference Range Interpretation Comments Glucose Lvl (test code = Glucose Lvl) 151 65-[address] [facility]2021-10-07 12:55:00 Test Item Value Reference Range Interpretation Comments BUN (test code = BUN) 17 7-25 [facility] CenterRopjlfnGABMANYABT4942-40-93 12:55:00 Test Item Value Reference Range Interpretation Comments WBC X 10x3 (test code = WBC X 10x3) 4.8 3.8-10.[address] [facility]2021-10-07 12:55:00 Test Item Value Reference Range Interpretation Comments Creatinine Lvl (test code = Creatinine 0.49 0.50-1.05 Lvl) [facility]2021-10-07 12:55:00 Test Item Value Reference Range Interpretation Comments eGFR NON-AFR. TONGAN (test code = 107 eGFR NON-AFR. TONGAN) [facility]2021-10-07 12:55:00 Test Item Value Reference Range Interpretation Comments eGFR (test code = eGFR 124 ) [facility]2021-10-07 12:55:00 Test Item Value Reference Range Interpretation Comments B/C Ratio (test code = B/C Ratio) 35 6-[address] [facility]2021-10-07 12:55:00 Test Item Value Reference Range Interpretation Comments Sodium Lvl (test code = Sodium Lvl) 140 135-146 [place] 951291-10-07 12:55:00 Test Item Value Reference Range Interpretation Comments Potassium Lvl (test code = Potassium 4.0 3.5-5.3 Lvl) [place] 951291-10-07 12:55:00 Test Item Value Reference Range Interpretation Comments Chloride Lvl (test code = Chloride Lvl) 105 98-110 [place] 951291-10-07 12:55:00 Test Item Value Reference Range Interpretation Comments CO2 (test code = CO2) 29 20-[address] [facility]2021-10-07 12:55:00 Test Item Value Reference Range Interpretation Comments Calcium Lvl (test code = Calcium Lvl) 8.7 8.6-10.4 [place] 951291-10-07 12:55:00 Test Item Value Reference Range Interpretation Comments Total Protein (test code = Total 6.8 6.1-8.1 Protein) [facility]NAW[facility]156[facility]-21 12:55:00 Test Item Value Reference Range Interpretation Comments RBC X 10x6 (test code = RBC X 10x6) 4.50 3.80-5.[address] [facility]2021-10-07 12:55:00 Test Item Value Reference Range Interpretation Comments Albumin Lvl (test code = Albumin Lvl) 3.7 3.6-5.[address] [facility]2021-10-07 12:55:00 Test Item Value Reference Range Interpretation Comments Globulin (test code = Globulin) 3.1 1.9-3.7 [place] 951291-10-07 12:55:00 Test Item Value Reference Range Interpretation Comments A/G Ratio (test code = A/G Ratio) 1.2 1.0-2.[address] [facility]2021-10-07 12:55:00 Test Item Value Reference Range Interpretation Comments Bili Total (test code = Bili Total) 0.6 0.2-1.[address] [facility]2021-10-07 12:55:00 Test Item Value Reference Range Interpretation Comments Alk Phos (test code = Alk Phos) 59 37-[address] [facility]2021-10-07 12:55:00 Test Item Value Reference Range Interpretation Comments ASPARTATE TRANSAMINASE (test code = 18 10-35 ASPARTATE TRANSAMINASE) [facility]2021-10-07 12:55:00 Test Item Value Reference Range Interpretation Comments ALANINE AMINOTRANSFERASE (test code = 23 6-29 ALANINE AMINOTRANSFERASE) [facility] CenterYeovwaaNSGALTCOJX0295-12-78 12:55:00 Test Item Value Reference Range Interpretation Comments WBC X 10x3 (test code = WBC X 10x3) 4.8 3.8-10.8 [place] 3167[place]-10-07 12:55:00 Test Item Value Reference Range Interpretation Comments RBC X 10x6 (test code = RBC X 10x6) 4.50 3.80-5.10 [place] 316741-10-07 12:55:00 Test Item Value Reference Range Interpretation Comments Hgb (test code = Hgb) 12.1 11.7-15.5 [place] 316741-10-07 12:55:00 Test Item Value Reference Range Interpretation Comments Hgb (test code = Hgb) 12.1 11.7-15.5 [place] 316741-10-07 12:55:00 Test Item Value Reference Range Interpretation Comments Hct (test code = Hct) 37.8 35.0-45.0 [place] 316741-10-07 12:55:00 Test Item Value Reference Range Interpretation Comments MCV (test code = MCV) 84.0 80.0-100.0 [place] 316741-10-07 12:55:00 Test Item Value Reference Range Interpretation Comments MCH (test code = MCH) 26.9 pg 27.0-33.0 [place] 316741-10-07 12:55:00 Test Item Value Reference Range Interpretation Comments MCHC (test code = MCHC) 32.0 32.0-36.0 [place] [id number] 12:55:00 Test Item Value Reference Range Interpretation Comments RDW (test code = RDW) 14.0 11.0-15.0 [place] [id number] 12:55:00 Test Item Value Reference Range Interpretation Comments Platelet (test code = Platelet) 151 140-400 [id number] 12:55:00 Test Item Value Reference Range Interpretation Comments MPV (test code = MPV) 12.1 7.5-12.5 [id number] 12:55:00 Test Item Value Reference Range Interpretation Comments Neutrophils # (test code = Neutrophils 3139 [id number] #) [id number] 12:55:00 Test Item Value Reference Range Interpretation Comments Lymphocytes # (test code = Lymphocytes [phone] #) [facility] [id number] 12:55:00 Test Item Value Reference Range Interpretation Comments Monocytes # (test code = Monocytes #) 350 200-[address] [facility] [address] [id number] 22:09:00 Test Item Value Reference Range Interpretation Comments Cholesterol (test 107 mg/dL 0-200 N code = CHOL) Triglycerides (test 76 mg/dL 9-200 N code = TRIG) HDL (test code = 36 mg/dL 50-60 L HDL) Chol/HDL (test code 3.0 Ratio 0.0-4.4 N = CHOLPHDL) LDL, Calculated 56 0-130 N (NOTE)RISK O F HEART (test code = LDLC) DISEASEPu blished by [place] Heart AssociationAnal yte Optimal Boderli ne Increased RiskC HOL <200 200-239 >240TRI G <150 150-199 >200HDL Male: >60 <40HDL Fema le: >60 <50LDL <100 130 -159 >160LDL NEAR [facility] IS 100-129 VLDL (test code = 15 mg/dL 5-40 N VLDL) LDL/HDL (test code = 2 LDLPHDL) Comprehensive Metabolic [id number] 22:09:00 Test Item Value Reference Range Interpretation [...] by the National Kid[employer] Foundation,http ://nkd ep.nih.gov [id number] 22:05:00 Test Item Value Reference Range Interpretation Comments NT ProBnp (test code = PBNP) 1920 pg/mL 0-124 H CBC with [id number] 18:24:00 Test Item Value Reference Range Interpretation [...] code = ALYMPH) 1.4 K/cumm 0.5-4.6 N [place] Abs (test code = AMONO) 0.3 K/cumm 0.0-1.2 N Eos Abs (test code = AEOS) 0.09 K/cumm 0.00-0.74 N Baso Abs (test code = ABASO) 0.0 K/cumm 0.00-0.21 N HEMOGLOBIN A1C Test Item Value Reference Range Interpretation Comments A1C (test code = 4548-4) 6.8% SARS-COV 2 AntigenSARS-COV 2 Antigen"
[2022-12-23] MEDS ORDERED: KETOROLAC 30 MG/ML INJ ONE (15:09)
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
--- NOTE | 2022-12-23 15:16 | RAD REPORT ---
EXAM DESCRIPTION: RAD - Shoulder Left 2 View - 12/23/2022 2:56 pm CLINICAL HISTORY: Left shoulder pain FINDINGS: No fracture or dislocation is seen.
--- NOTE | 2022-12-23 15:22 | ER ---
Nurse's Notes [facility] [place] Name: Sukh York Age: 62 yrs Sex: Female : 1960 Arrival Date: 12/23/2022 Time: 14:20 Bed 15 Private MD: Diagnosis: Contusion of scalp, initial encounter;Contusion of left shoulder Presentation: 12/23 14:28 Chief complaint: Patient states: box weighing approximately 200lbs fell on head last cm10 night. Pt complaining of left sided head pain and left shoulder pain. No LOC, no blood thinners. Pt complaining of dizziness. Coronavirus screen: Client denies travel out of the [place] in the last 14 days. Ebola Screen: Patient denies travel to an Ebola-affected area in the 21 days before illness onset. No symptoms or risks identified at this time. Initial Sepsis Screen: Does the patient meet any 2 criteria? No. Patient's initial sepsis screen is negative. Does the patient have a suspected source of infection? No. Patient's initial sepsis screen is negative. Risk Assessment: Do you want to hurt yourself or someone else? Patient reports no desire to harm self or others. Onset of symptoms was December 23, 2022. 14:28 Method Of Arrival: Ambulatory cm10 14:28 Acuity: RADHA 3 cm10 Triage Assessment: 14:30 General: Appears in no apparent distress. comfortable, Behavior is calm, cooperative. cm10 Neuro: No deficits noted. Level of Consciousness is awake, alert, obeys commands, Oriented to person, place, time, situation. Historical: - Allergies: 14:29 PENICILLINS; cm10 - PMHx: 14:29 Aneurysm; Diabetes - NIDDM; COPD; CHF; Hypertension; cm10 - PSHx: 14:29 defibrillator; cm10 - Immunization history:: Adult Immunizations up to date. - Social history:: Smoking status: Patient denies any tobacco usage or history of. Screenin:55 [facility] ED Fall Risk Assessment (Adult) Score/Fall Risk Level 0 - 2 = Low Risk. Abuse eh3 screen: Denies threats or abuse. Denies injuries from another. Nutritional screening: No deficits noted. Tuberculosis screening: No symptoms or risk factors identified. Assessment: 14:55 General: Appears in no apparent distress. uncomfortable, Behavior is calm, cooperative, eh3 appropriate for age. Pain: Complains of pain in left frontal area Pain radiates to neck. Neuro: Level of Consciousness is awake, alert, obeys commands, Oriented to person, place, time, situation. Cardiovascular: Capillary refill < 3 seconds Patient's skin is warm and dry. Respiratory: Airway is patent Respiratory effort is even, unlabored, Respiratory pattern is regular, symmetrical. GI: Abdomen is round non-distended. Derm: Skin is pink, warm \T\ dry. Musculoskeletal: Circulation, motion, and sensation intact. Vital Signs: 14:28 BP 116 / 63; Pulse 61; Resp 16 S; Temp 98.4; Pulse Ox 99% on R/A; Weight 111.13 kg; cm10 Height 5 ft. 1 in. ; Pain 8/10; 14:28 Body Mass Index 46.29 (111.13 kg, 154.94 cm) cm10 14:28 Pain Scale: Adult cm10 ED Course: 14:23 Patient arrived in ED. 4 14:24 [facility] jh7 14:24 Cj León MD is Attending Physician. jh7 14:29 Triage completed. cm10 14:30 Arm band placed on Patient placed in an exam room, on a stretcher. cm10 14:46 CT Head C Spine In Process Unspecified. EDMS 14:55 Rosemary Teran, RN is Primary Nurse. eh3 14:55 Patient has correct armband on for positive identification. Bed in low position. Call eh3 light in reach. Side rails up X2. Provided Education on: Use of call salazar. Pulse ox on. NIBP on. 14:58 XRAY Shoulder LEFT 2 view In Process Unspecified. EDMS 15:33 No provider procedures requiring assistance completed. Patient did not have IV access eh3 during this emergency room visit. Administered Medications: 15:06 Drug: Ketorolac IM 30 mg Route: IM; Site: right deltoid; eh3 15:33 Follow up: Response: No adverse reaction eh3 Medication: 15:33 VIS not applicable for this client. eh3 Outcome: 15:21 Discharge ordered by . [facility] 15:33 Patient left the ED. eh3 15:33 Discharged to home ambulatory. eh3 15:33 Condition: stable 15:33 Discharge instructions given to patient, Instructed on discharge instructions, follow up and referral plans. medication usage, Demonstrated understanding of instructions, follow-up care, medications, Prescriptions given X 2. Signatures: Dispatcher [employer] Madeline Claros rg4 Rosemary Teran, RN RN eh3 Rika Hernandez, CUSTOMER FACILITIES SUPERVISOR CUSTOMER FACILITIES SUPERVISOR jh7 Mirta Lutz RN RN cm10
--- NOTE | 2022-12-23 15:22 | EDPHYS ---
Physician Documentation [facility] [place] Name: Sukh York Age: 62 yrs Sex: Female : 1960 Arrival Date: 12/23/2022 Time: 14:20 Bed 15 Private MD: ED Physician Cj León HPI: 12/23 14:30 This 62 yrs old Female presents to ER via Ambulatory with complaints of Head jh7 Injury Without LOC-Adult. 14:30 The patient or guardian reports injury, pain. The complaints affect the left frontal jh7 area. Context of injury: The problem was sustained at home, resulted from a direct blow, box falling on head. Onset: The symptoms/episode began/occurred last night. Associated signs and symptoms: Loss of consciousness: This patient did not experience any loss of consciousness. Pertinent positives: headache, Pertinent negatives: double vision, nausea, vomiting, weakness in extremities, generalized weakness. Patient reports that a 200 pound box containing a bed fell on her left scalp and shoulder. Denies loss of consciousness. The patient does not take blood thinners.. Historical: - Allergies: 14:29 PENICILLINS; cm10 - PMHx: 14:29 Aneurysm; Diabetes - NIDDM; COPD; CHF; Hypertension; cm10 - PSHx: 14:29 defibrillator; cm10 - Immunization history:: Adult Immunizations up to date. - Social history:: Smoking status: Patient denies any tobacco usage or history of. ROS: 14:30 Eyes: Negative for injury, pain, redness, and discharge. jh7 14:30 Cardiovascular: Negative for chest pain, palpitations, and edema, Respiratory: Negative for shortness of breath, cough, wheezing, and pleuritic chest pain, Abdomen/GI: Negative for abdominal pain, nausea, vomiting, diarrhea, and constipation, Back: Negative for injury and pain, Skin: Negative for injury, rash, and discoloration. 14:30 Neck: Positive for pain with movement, tenderness. 14:30 MS/extremity: Positive for contusion, pain, tenderness, Negative for decreased range of motion. 14:30 Neuro: Positive for headache, Negative for altered mental status, dizziness, gait disturbance, loss of consciousness, numbness, syncope, tingling, visual changes. 14:30 All other systems are negative. Exam: 14:30 Constitutional: This is a well developed, well nourished patient who is awake, alert, jh7 and in no acute distress. Head/Face: Normocephalic, atraumatic. Eyes: Pupils equal round and reactive to light, extra-ocular motions intact. Lids and lashes normal. Conjunctiva and sclera are non-icteric and not injected. Cornea within normal limits. Periorbital areas with no swelling, redness, or edema. Neck: Trachea midline, no thyromegaly or masses palpated, and no cervical lymphadenopathy. Supple, full range of motion without nuchal rigidity, or vertebral point tenderness. No Meningismus. Cardiovascular: Regular rate and rhythm with a normal S1 and S2. No gallops, murmurs, or rubs. Normal PMI, no JVD. No pulse deficits. Respiratory: Lungs have equal breath sounds bilaterally, clear to auscultation and percussion. No rales, rhonchi or wheezes noted. No increased work of breathing, no retractions or nasal flaring. Abdomen/GI: Soft, non-tender, with normal bowel sounds. No distension or tympany. No guarding or rebound. No evidence of tenderness throughout. Back: No spinal tenderness. No costovertebral tenderness. Full range of motion. Skin: Warm, dry with normal turgor. Normal color with no rashes, no lesions, and no evidence of cellulitis. Neuro: Awake and alert, GCS 15, oriented to person, place, time, and situation. Cranial nerves II-XII grossly intact. Motor strength 5/5 in all extremities. Sensory grossly intact. Cerebellar exam normal. Normal gait. 14:30 Musculoskeletal/extremity: ROM: limited active range of motion due to pain, in the left shoulder, Circulation is intact in all extremities. Sensation intact. Pain noted to left posterior shoulder with palpation. Vital Signs: 14:28 BP 116 / 63; Pulse 61; Resp 16 S; Temp 98.4; Pulse Ox 99% on R/A; Weight 111.13 kg; cm10 Height 5 ft. 1 in. ; Pain 8/10; 14:28 Body Mass Index 46.29 (111.13 kg, 154.94 cm) cm10 14:28 Pain Scale: Adult cm10 MDM: 14:24 Patient medically screened. [facility] 15:25 Differential diagnosis: Contusion of Hematoma on Intracranial bleed- Concussion. Data [facility] reviewed: vital signs, nurses notes, radiologic studies, CT scan, plain films. I considered the following discharge prescriptions or medication management in the emergency department Medications were administered in the Emergency Department. See MAR. Care significantly affected by the following chronic conditions: Diabetes, Hypertension, Congestive Heart Failure, Chronic Obstructive Pulmonary Disease. Counseling: I had a detailed discussion with the patient and/or guardian regarding: the historical points, exam findings, and any diagnostic results supporting the discharge/admit diagnosis, to return to the emergency department if symptoms worsen or persist or if there are any questions or concerns that arise at home. Response to treatment: the patient's symptoms have markedly improved after treatment. 12/23 14:36 Order name: CT Head C Spine; Complete Time: 15:[address] [facility] 12/23 14:36 Order name: XRAY Shoulder LEFT 2 view; Complete Time: 15:[address] [facility] Administered Medications: 15:06 Drug: Ketorolac IM 30 mg Route: IM; Site: right deltoid; [facility] 15:33 Follow up: Response: No adverse reaction [facility] Disposition: 16:48 Co-signature as Attending Physician, Cj León MD I reviewed the patient's care rn provided by the Advanced Practice Provider and agree with the diagnosis and treatment plan. Disposition Summary: 12/23/22 15:21 Discharge Ordered Location: Home [facility] Problem: new [facility] Symptoms: have improved [facility] Condition: Stable [facility] Diagnosis - Contusion of scalp, initial encounter 7 - Contusion of left shoulder [facility] Followup: [facility] - With: Private Physician - When: 2 - 3 days - Reason: Recheck today's complaints Discharge Instructions: - Discharge Summary Sheet [facility] - Facial or Scalp Contusion [facility] - Head Injury, Adult [facility] Forms: - Medication Reconciliation Form [facility] - Thank You Letter [facility] - Patient Portal Instructions [facility] Prescriptions: - Naprosyn 500 mg Oral Tablet - take 1 tablet by ORAL route 2 times per day take with food; 30 tablet; Refills: [facility] 0, Product Selection Permitted - Zanaflex 4 mg Oral Tablet - take 1 tablet by ORAL route every 8 hours As needed; 20 tablet; Refills: 0, jh7 Product Selection Permitted Signatures: Dispatcher [employer] EDCj Shay MD MD rn Hall, Erin, RN RN [facility] Rika Hernandez FNP [place] [id number] Mirta Lutz, RN RN cm10
[2022-12-23 15:44] VITALS: BP 116/63; TEMP 98.4; O2SAT 99
== END 2022-12-23 15:33 | disposition home or self-care (01) ==
LOC: ER 14:20
DX: S00.03XA Contusion of scalp, initial encounter (principal); S40.012A Contusion of left shoulder, initial encounter; Z88.0 Allergy status to penicillin; Z95.0 Presence of cardiac pacemaker
CPT/HCPCS: 70450; 72125; 96372; 99284

== ENCOUNTER 2023-01-20 23:22 | Emergency (ER) | payer OTHER ==
--- OUTSIDE RECORDS SUMMARY | 2023-01-20 23:38 | XMS REPORT | Continuity of Care Document ---
:1960 Author Organization [facility] t Address [address] [place] [address] [place] [id number] Care Team Providers Name Role Phone IVONNE JACQUI Primary Care Physician Unavailable Aissatou Tapia Attending Clinician Unavailable Aleah Nicholson Attending Clinician Unavailable VAUGHN MORRISON Attending Clinician Unavailable MIREYA ANGEL Attending Clinician Unavailable GIOVANY KNOTT Attending Clinician Unavailable SOPHIE PITTMAN Attending Clinician Unavailable Wood Roach MD Attending Clinician Mireya Ivory Attending Clinician FE RHODES Attending Clinician Unavailable Doctor Unassigned, [place] Attending Clinician Unavailable Alyssa Dodd MD Attending Clinician [phone] ALYSSA DODD Attending Clinician Unavailable Sigifredo Ramirez MD Attending Clinician SIGIFREDO RAMIREZ Attending Clinician Unavailable SIGIFREDO RAMIREZ Attending Clinician Unavailable VIVEK IVEY Attending Clinician Unavailable Rosangela BERNSTEIN, Marychuy Fishman Attending Clinician Unavailable Lab, Ang - Db Attending Clinician Unavailable Andrews Perla MD Attending Clinician ANDREWS PERLA Attending Clinician Unavailable ANDREWS EPRLA Attending Clinician Unavailable JACQUI CORONADO Attending Clinician Unavailable LATASHA LEAL Attending Clinician Unavailable Latasha Leal MD Attending Clinician , [facility] Sleep Lab Bed Attending Clinician Unavailable Feliberto, General Cardiology Attending Clinician Unavailable WOOD ROACH Attending Clinician Unavailable Testing, [facility] Pulmonary Function Attending Clinician Unavaila Miguel Choudhury MD Attending Clinician MIGUEL FORD Attending Clinician Unavailable RADIOLOGY Attending Clinician Unavailable Radiology Attending Clinician Unavailable Pob, [facility] Main Attending Clinician Unavailable Milo Bennett MD Attending Clinician Fe Rhodes MD Attending Clinician MANDI MOON Attending Clinician Unavailable Nurse, Alexander Covarrubias Pedi Attending Clinician Unavailable Unknown, Attending Attending Clinician Unavailable UNKNOWN, ATTENDING Attending Clinician Unavailable Regulo Villa Attending Clinician Yue CAM, Senddaron K.HRenuka Attending Clinician JOEL TURNER K.HRenuka Attending Clinician Unavailable Fina Attending Clinician Unavailable JACQUI CORONADO Attending Clinician Unavailable WOOD ROACH Admitting Clinician Unavailable JOEL TURNER KRenukaHRenuka Admitting Clinician Unavailable Fina Admitting Clinician Unavailable JACQUI CORONADO Admitting Clinician Unavailable Payers Payer Name Policy Type Policy Number Effective Date Expiration Date Moi [facility] DUAL [id number] 2021 COMP HMO D SNP 00:00:00 [place]ID [place] [id number] 2017 00:00:00 [place] [id number] 2021 Common DUAL MCR WELLMED 00:00:00 [facility] MEDICARE NOVITAS MB [id number] [facility] MEDICARE NOVITAS MB [id number] [facility] MEDICARE NOVITAS MB [id number] [facility] MEDICARE NOVITAS MB [id number] [facility] MEDICARE NOVITAS MB [id number] [facility] WELL[employer] - [id number] 2020 [facility] 00:00:00 (MEDICARE REPLACEMENT/ADVAN TAGE - H[place]) [place] [id number] [place] [facility] [id number] - DUAL COMPLETE - DUAL ELIGIBLE - SNP (MEDICARE-MEDICAI D REPLACEMENT HMO) Problems Condition Condition Condition Status Onset Resolution Last Treating Co mments Source Name Details Category Date Date Treatment Clinician Date Angina Angina Disease Active Univers pectoris pectoris 4-19 ity of 00:00: [place] 00 Medical Branch Diabetes Diabetes Disease Active Unive rs mellitus mellitus 4-19 ity of 00:00: [place] [facility] Sick sinus Sick sinus Disease Active U nivers syndrome syndrome 4-19 ity of 00:00: [place] [facility] Ventricula Ventricula Disease Active U [...] Spirit on unspecifie - [facility]I d type [facility] [id number] Unsteady Problem Commo n gait [facility] [id number] Obstructiv Problem Com mon e sleep Spirit apnea - [facility] (adult) (pediatric [facility] ) [facility] Hypertensi Hypertensi Problem C ommon on on [facility] Peripheral Peripheral Problem C ommon vascular vascular Spirit disease disease - [facility] Type II Diabetes Problem Common diabetes type 2, Spirit mellitus controlled - I well [facility] Cardiomyop Cardiomyop Problem C ommon athy athy [facility] [id number] Constipati Problem Com mon on, Spirit unspecifie - CHI d constipati [facility] on [facility] [id number] AICD Problem Common (automatic Spirit cardiovert - [facility] er/defibri St llator) [facility] [id number] Other Problem Common chronic [facility] pain - [facility] [id number] Tremor of Problem Com mon both hands [facility] [id number] Polyarthra Problem Com mon lgia [facility] [id number] Chest Problem Common pain, Spirit unspecifie - [facility]I d type [facility] [id number] Chronic Problem Common congestive [facility], [facility] type [id number] Morbid Problem Common (severe) [facility] obesity - CHI due to [facility] [id number] Coronary Problem Com mon 107 artery Spirit disease - CHI involving [facility] coronary Medical artery of Center [place] heart, angina presence unspecifie d [id number] Primary Problem Comm on osteoarthr Spirit itis of - CHI right knee [facility] [id number] Status Problem Common post fall [facility] [id number] Falls Problem Common frequently [facility] [id number] Shortness Problem Com mon of breath [facility] Depression Depression Problem C ommon Spirit [facility] [id number] Peripheral Problem Co mmon edema [facility] [id number] Asthma, Problem Commo n unspecifie Spirit d asthma - [facility] severity[facility] whether Medical complicate Center d, unspecifie d whether persistent [id number] Non-pressu Problem Com mon re chronic Spirit ulcer of - CHI unspecifie [facility] d part of [facility] left lower Medica l leg with Center unspecifie d severity [id number] Varicose Problem Comm on veins of Spirit left lower - CHI extremity St with ulcer [facility] unspecifie Center d site Cardiac Cardiac Problem Active 2021-07-26 Me moria defibrilla defibrilla 22:53:26 l tor in tor in [place] situ situ (finding) (finding) Active Problem 07/26/2021 [facility] 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 22:53:26 l s s [place] (disorder) (disorder) Active Problem 07/26/2021 [facility] Congestive Congestiv Problem Active 2021-07-26 [facility]oria heart e heart 22:53:26 l failure failure [place] (disorder) (disorder) Active Problem 07/26/2021 [facility] Headache Headache Problem Active 2021-07-26 [facility] (finding) (finding) 22:53:26 l Active [place] Problem 07/26/2021 [facility] Neoplasm Neoplasm Problem Active 2021-07-26 Memoria of of 22:53:26 l meninges meninges Ferdinand n (disorder) (disorder) Active Problem 07/26/2021 [facility] Diabetes Diabetes Problem Active 2021-07-26 Memoria mellitus mellitus 22:53:26 l type 2 type 2 [place] (disorder) (disorder) Active Problem 07/26/2021 [facility] [...] Unknown Commo n in in Spirit - [facility] penicill penicill Active Memori a in in l [place]EN[place]ILL Allergy Active [place] [facility] Social History Social Habit Start Date Stop Date Quantity Comments Source Exposure to 2022-10-06 2022-10-16 Not sure [facility] SARS-CoV-2 00:00:00 11:16:00 [facility] (event) Branch Alcohol intake 2022-10-10 2022-10-10 Lifetime University of 00:00:00 00:00:00 non-drinker [facility] (finding) Branch Tobacco use and 2022-04-10 2022-04-10 Smokeless tobacco Un iversity of exposure 00:00:00 00:00:00 non-user [facility] Social History 2021-02-21 2021-02-21 [facility] 19:06:01 19:06:01 History of 2014-05-19 Cigar Smoker University o f tobacco use 00:00:00 [facility] Sex Ass[birth year] [facility] 00:00:00 00:00:00 [facility] Center Smoking Status Start Date Stop Date Source Ex-smoker 2022-04-10 00:00:00 2022-04-10 00:00:00 Universi ty of [facility] Medications Ordered Filled Start Stop Current Ordering Indication Dosage Frequency Signature Comments Components Source Medication Medication Date Date Medication? Clinician (SIG) Name Name JARDIANCE Yes [id number] Take 1 U nivers 10 mg 6-27 tablet by ity of 00:00: mouth once [place] 00 daily Medical Branch sacubitriL- Yes 1{tbl} Take 1 Un winter valsartan 5-25 tablet by ity o f 49-51 mg 09:06: mouth in [place] tablet 22 the Medical morning Branch and [...] and 1 tablet in the evening. MOUNJARO Yes Univers 2.5 mg/0.5 5-12 ity of mL PnIj 00:00: [facility] MOUNJARO 0 Yes Univers 2.5 mg/0.5 5-12 ity of mL PnIj 00:00: [facility] MOUNJARO 0 Yes Univers 2.5 mg/0.5 5-12 ity of mL PnIj 00:00: [facility] Branch MOUNJARO 0 Yes Univers 2.5 mg/0.5 5-12 ity of mL PnIj 00:00: [facility] MOUNJARO 0 Yes Univers 2.5 mg/0.5 5-12 ity of mL PnIj 00:00: [facility] MOUNJARO 0 Yes Univers 2.5 mg/0.5 5-12 ity of mL PnIj 00:00: [place] [facility] MOUNJARO 3-0 Yes Univers 2.5 mg/0.5 5-12 ity of mL PnIj 00:00: [place] [facility] JARDIANCE 3-0 Yes [id number] Take 1 U nivers 10 mg 4-03 tablet by ity of 00:00: mouth once [place] daily Medical Branch JARDIANCE 3-0 Yes [id number] Take 1 U nivers 10 mg 4-03 tablet by ity of 00:00: mouth once [place] daily Medical Branch JARDIANCE 3-0 Yes [id number] Take 1 U nivers 10 mg 4-03 tablet by ity of 00:00: mouth once [place] daily Medical Branch JARDIANCE 3-0 Yes [id number] Take 1 U nivers 10 mg 4-03 tablet by ity of 00:00: mouth once [place] daily Medical Branch JARDIANCE 3-0 Yes [id number] Take 1 U nivers 10 mg 4-03 tablet by ity of 00:00: mouth once [place] daily Medical Branch JARDIANCE 3-0 Yes [id number] Take 1 U nivers 10 mg 4-03 tablet by ity of 00:00: mouth once [place] daily Medical Branch JARDIANCE 3-0 Yes [id number] Take 1 U nivers 10 mg 4-03 tablet by ity of 00:00: mouth once [place] daily Medical Branch JARDIANCE 3-0 Yes [id number] Take 1 U nivers 10 mg 4-03 tablet by ity of 00:00: mouth once [place] daily Medical Branch JARDIANCE 2023-0 Yes [id number] Take 1 U nivers 10 mg 4-03 tablet by ity of 00:00: mouth once [place] daily Medical Branch JARDIANCE 2023-0 Yes [id number] Take 1 U nivers 10 mg 4-03 tablet by ity of 00:00: mouth once [place] daily Medical Branch JARDIANCE 2023-0 Yes [id number] Take 1 U nivers 10 mg 4-03 tablet by ity of 00:00: mouth once [place] daily Medical Branch JARDIANCE 2023-0 Yes [id number] Take 1 U nivers 10 mg 4-03 tablet by ity of 00:00: mouth once [place] daily Medical Branch JARDIANCE 3-0 Yes [id number] Take 1 U nivers 10 mg 4-03 tablet by ity of 00:00: mouth once [place] daily Medical Branch JARDIANCE 3-0 Yes [id number] Take 1 U nivers 10 mg 4-03 tablet by ity of 00:00: mouth once [place] daily Medical Branch JARDIANCE 3-0 Yes [id number] Take 1 U nivers 10 mg 4-03 tablet by ity of 00:00: mouth once [place] daily Medical Branch JARDIANCE 3-0 Yes [id number] Take 1 U nivers 10 mg 4-03 tablet by ity of 00:00: mouth once [place] daily Medical Branch JARDIANCE 2022-0 Yes [id number] Take 1 U nivers 10 mg 4-03 tablet by ity of 00:00: mouth once [place] daily Medical Branch JARDIANCE 2022-0 Yes [id number] Take 1 U nivers 10 mg 4-03 tablet by ity of 00:00: mouth once [place] daily Medical Branch JARDIANCE 3-0 Yes [id number] Take 1 U nivers 10 mg 4-03 tablet by ity of 00:00: mouth once [place] daily Medical Branch JARDIANCE 2022-0 Yes [id number] Take 1 U nivers 10 mg 4-03 tablet by ity of 00:00: mouth once [place] daily Medical Branch JARDIANCE 2022-0 Yes [id number] Take 1 U nivers 10 mg 4-03 tablet by ity of 00:00: mouth once [place] daily Medical Branch JARDIANCE 3-0 Yes [id number] Take 1 U nivers 10 mg 4-03 tablet by ity of 00:00: mouth once [place] daily Medical Branch JARDIANCE 3-0 Yes [id number] Take 1 U nivers 10 mg 4-03 tablet by ity of 00:00: mouth once [place] daily Medical Branch JARDIANCE 3-0 Yes [id number] Take 1 U nivers 10 mg 4-03 tablet by ity of 00:00: mouth once [place] daily Medical Branch JARDIANCE 3-0 2023- No [id number] Take 1 Univers 10 mg 4-03 06-27 tablet by ity of 00:00: 00:00 mouth once [place] 00 :00 daily Medical Branch spironolact 2023-0 Yes [id number] 12.5mg Take 0.5 Univers one 25 mg 3-29 tablets by ity of tablet 00:00: mouth in [place] the Medical morning. Branch spironolact 2023-0 Yes [id number] 12.5mg Take 0.5 Univers one 25 mg 3-29 tablets by ity of tablet 00:00: mouth in [place] the Medical morning. Branch spironolact 2023-0 Yes [id number] 12.5mg Take 0.5 Univers one 25 mg 3-29 tablets by ity of tablet 00:00: mouth in [place] the Medical morning. Branch spironolact 2023-0 Yes [id number] 12.5mg Take 0.5 Univers one 25 mg 3-29 tablets by ity of tablet 00:00: mouth in [place] the Medical morning. Branch spironolact 2023-0 Yes [id number] 12.5mg Take 0.5 Univers one 25 mg 3-29 tablets by ity of tablet 00:00: mouth in [place] the Medical morning. Branch spironolact 2023-0 Yes [id number] 12.5mg Take 0.5 Univers one 25 mg 3-29 tablets by ity of tablet 00:00: mouth in [place] the Medical morning. Branch spironolact 2023-0 Yes [id number] 12.5mg Take 0.5 Univers one 25 mg 3-29 tablets by ity of tablet 00:00: mouth in [place] the Medical morning. Branch spironolact 2023-0 Yes [id number] 12.5mg Take 0.5 Univers one 25 mg 3-29 tablets by ity of tablet 00:00: mouth in [place] the Medical morning. Branch spironolact 2023-0 Yes [id number] 12.5mg Take 0.5 Univers one 25 mg 3-29 tablets by ity of tablet 00:00: mouth in [place] the Medical morning. Branch spironolact 2023-0 Yes [id number] 12.5mg Take 0.5 Univers one 25 mg 3-29 tablets by ity of tablet 00:00: mouth in [place] the Medical morning. Branch spironolact 2023-0 Yes [id number] 12.5mg Take 0.5 Univers one 25 mg 3-29 tablets by ity of tablet 00:00: mouth in [place] the Medical morning. Branch spironolact 2023-0 Yes [id number] 12.5mg Take 0.5 Univers one 25 mg 3-29 tablets by ity of tablet 00:00: mouth in [place] the Medical morning. Branch spironolact 2023-0 Yes [id number] 12.5mg Take 0.5 Univers one 25 mg 3-29 tablets by ity of tablet 00:00: mouth in [place] the Medical morning. Branch spironolact 2023-0 Yes [id number] 12.5mg Take 0.5 Univers one 25 mg 3-29 tablets by ity of tablet 00:00: mouth in [place] the Medical morning. Branch spironolact 2023-0 Yes [id number] 12.5mg Take 0.5 Univers one 25 mg 3-29 tablets by ity of tablet 00:00: mouth in [place] the Medical morning. Branch spironolact 2023-0 Yes [id number] 12.5mg Take 0.5 Univers one 25 mg 3-29 tablets by ity of tablet 00:00: mouth in [place] the Medical morning. Branch spironolact 2023-0 Yes [id number] 12.5mg Take 0.5 Univers one 25 mg 3-29 tablets by ity of tablet 00:00: mouth in [place] the Medical morning. Branch spironolact 2023-0 Yes [id number] 12.5mg Take 0.5 Univers one 25 mg 3-29 tablets by ity of tablet 00:00: mouth in [place] the Medical morning. Branch spironolact 2023-0 Yes [id number] 12.5mg Take 0.5 Univers one 25 mg 3-29 tablets by ity of tablet 00:00: mouth in [place] the Medical morning. Branch spironolact 2023-0 Yes [id number] 12.5mg Take 0.5 Univers one 25 mg 3-29 tablets by ity of tablet 00:00: mouth in [place] the Medical morning. Branch spironolact 2023-0 Yes [id number] 12.5mg Take 0.5 Univers one 25 mg 3-29 tablets by ity of tablet 00:00: mouth in [place] the Medical morning. Branch spironolact 2023-0 Yes [id number] 12.5mg Take 0.5 Univers one 25 mg 3-29 tablets by ity of tablet 00:00: mouth in [place] the Medical morning. Branch spironolact 2023-0 Yes [id number] 12.5mg Take 0.5 Univers one 25 mg 3-29 tablets by ity of tablet 00:00: mouth in [place] the Medical morning. Branch spironolact 2023-0 Yes [id number] 12.5mg Take 0.5 Univers one 25 mg 3-29 tablets by ity of tablet 00:00: mouth in [place] the Medical morning. Branch spironolact 2023-0 Yes [id number] 12.5mg Take 0.5 Univers one 25 mg 3-29 tablets by ity of tablet 00:00: mouth in [place] the Medical morning. Branch spironolact 2023-0 Yes [id number] 12.5mg Take 0.5 Univers one 25 mg 3-29 tablets by ity of tablet 00:00: mouth in [place] the Medical morning. Branch spironolact 2023-0 Yes [id number] 12.5mg Take 0.5 Univers one 25 mg 3-29 tablets by ity of tablet 00:00: mouth in [place] the Medical morning. Branch spironolact 2023-0 Yes [id number] 12.5mg Take 0.5 Univers one 25 mg 3-29 tablets by ity of tablet 00:00: mouth in [place] the Medical morning. Branch spironolact 2023-0 Yes [id number] 12.5mg Take 0.5 Univers one 25 mg 3-29 tablets by ity of tablet 00:00: mouth in [place] the Medical morning. Branch metformin 2022-0 Yes [...] by mouth ity of 13:01: daily with [place] [address] breakfast. Medical Branch metformin 3-0 Yes 500mg [...] by mouth ity of 13:01: daily with [place] [address] breakfast. Medical Branch metformin 2022-0 Yes 500mg [...] by mouth ity of 13:01: daily with [place] [address] breakfast. Medical Branch metformin 2022-0 Yes 500mg [...] by mouth ity of 13:01: daily with [place] [address] breakfast. Medical Branch metformin 3-0 Yes 500mg [...] mouth ity of 13:01: daily with [place] breakfast. Medical Branch metformin 2022-0 Yes 500mg [...] by mouth ity of 13:01: daily with [place] [address] breakfast. Medical Branch metformin 2022-0 Yes 500mg [...] by mouth ity of 13:01: daily with [place] [address] breakfast. Medical Branch metformin 2022-0 Yes 500mg [...] by mouth ity of 13:01: daily with [place] 33 breakfast. Medical Branch metformin 2022-0 Yes [...] by mouth ity of 13:01: daily with [place] [address] breakfast. Medical Branch metformin 2022-0 Yes 500mg [...] by mouth ity of 13:01: daily with [place] [address] breakfast. Medical Branch metformin 3-0 Yes 500mg [...] by mouth ity of 13:01: daily with [place] [address] breakfast. Medical Branch metformin 3-0 Yes 500mg [...] by mouth ity of 13:01: daily with [place] [address] breakfast. Medical Branch metformin 3-0 Yes 500mg [...] by mouth ity of 13:01: daily with [place] [address] breakfast. Medical Branch metformin 3-0 Yes 500mg Take 500 Uni vers HCl 2-20 mg by ity of (METFORMIN 13:01: [place] 2 [place] (two) Medical times Branch daily with meals. glimepiride 2023-0 Yes 2mg Take 2 mg U nivers 2 mg tablet 2-20 by mouth ity of 13:01: daily with [place] [address] breakfast. Medical Branch metformin 3-0 Yes 500mg Take 500 Uni vers HCl 2-20 mg by ity of (METFORMIN 13:01: [place] (two) Medical times Branch daily with meals. glimepiride 2023-0 Yes 2mg Take 2 mg U nivers 2 mg tablet 2-20 by mouth ity of 13:01: daily with [place] [address] breakfast. Medical Branch metformin 3-0 Yes 500mg Take 500 Uni vers HCl 2-20 mg by ity of (METFORMIN 13:01: [place] 2 [place] (two) Medical times Branch daily with meals. glimepiride 2023-0 Yes 2mg Take 2 mg U nivers 2 mg tablet 2-20 by mouth ity of 13:01: daily with [place] [address] breakfast. Medical Branch metformin 2023-0 Yes 500mg Take 500 Uni vers HCl 2-20 mg by ity of (METFORMIN 13:01: [place] 2 [place] (two) Medical times Branch daily with meals. glimepiride 2023-0 Yes 2mg Take 2 mg U nivers 2 mg tablet 2-20 by mouth ity of 13:01: daily with [place] [address] breakfast. Medical Branch metformin 3-0 Yes 500mg Take 500 Uni vers HCl 2-20 mg by ity of (METFORMIN 13:01: mouth 2 [place] (two) Medical times Branch daily with meals. glimepiride 2023-0 Yes 2mg Take 2 mg U nivers 2 mg tablet 2-20 by mouth ity of 13:01: daily with [place] [address] breakfast. Medical Branch metformin 3-0 Yes 500mg Take 500 Uni vers HCl 2-20 mg by ity of (METFORMIN 13:01: mouth 2 [place] (two) Medical times Branch daily with meals. glimepiride 2023-0 Yes 2mg Take 2 mg U nivers 2 mg tablet 2-20 by mouth ity of 13:01: daily with [place] [address] breakfast. Medical Branch metformin 3-0 Yes 500mg Take 500 Uni vers HCl 2-20 mg by ity of (METFORMIN 13:01: [place] 2 [place] (two) Medical times Branch daily with meals. glimepiride 2023-0 Yes 2mg Take 2 mg U nivers 2 mg tablet 2-20 by mouth ity of 13:01: daily with [place] [address] breakfast. Medical Branch metformin 2023-0 Yes 500mg [...] by mouth ity of 13:01: daily with [place] [address] breakfast. Medical Branch metformin 3-0 Yes 500mg [...] by mouth ity of 13:01: daily with [place] [address] breakfast. Medical Branch metformin 2022-0 Yes 500mg [...] by mouth ity of 13:01: daily with [place] [address] breakfast. Medical Branch metformin 3-0 Yes 500mg [...] by mouth ity of 13:01: daily with [place] [address] breakfast. Medical Branch metformin 2023-0 Yes 500mg [...] by mouth ity of 13:01: daily with [place] [address] breakfast. Medical Branch metformin 3-0 Yes 500mg [...] by mouth ity of 13:01: daily with [place] [address] breakfast. Medical Branch metformin 3-0 Yes 500mg [...] by mouth ity of 13:01: daily with [place] [address] breakfast. Medical Branch metformin 3-0 Yes 500mg [...] by mouth ity of 13:01: daily with [place] [address] breakfast. Medical Branch metformin 3-0 Yes 500mg [...] by mouth ity of 13:01: daily with [place] [address] breakfast. Medical Branch metformin 2022-0 Yes 500mg [...] by mouth ity of 13:01: daily with [place] [address] breakfast. Medical Branch metformin 3-0 Yes 500mg [...] by mouth ity of 13:01: daily with [place] [address] breakfast. Medical Branch metformin 3-0 Yes 500mg [...] by mouth ity of 13:01: daily with [place] [address] breakfast. Medical Branch metformin 3-0 Yes 500mg [...] by mouth ity of 13:01: daily with [place] [address] breakfast. Medical Branch metformin 2022-0 Yes 500mg [...] by mouth ity of 13:01: daily with [place] [address] breakfast. Medical Branch metformin 3-0 Yes 500mg [...] by mouth ity of 13:01: daily with [place] [address] breakfast. Medical Branch metformin 2022-0 Yes 500mg [...] by mouth ity of 13:01: daily with [place] [address] breakfast. Medical Branch bumetanide 2022-0 Yes 1mg TAKE 1 Unive rs 1 mg tablet 1-12 TABLET BY ity of 00:00: MOUTH IN [place] THE Medical MORNING Branch AND 1 TABLET IN THE EVENING bumetanide 2022-0 Yes 1mg TAKE 1 Unive rs 1 mg tablet 1-12 TABLET BY ity of 00:00: MOUTH IN [place] THE Medical MORNING Branch AND 1 TABLET IN THE EVENING bumetanide 2022-0 Yes 1mg TAKE 1 Unive rs 1 mg tablet 1-12 TABLET BY ity of 00:00: MOUTH IN [place] THE Medical MORNING Branch AND 1 TABLET IN THE EVENING bumetanide 2022-0 Yes 1mg TAKE 1 Unive rs 1 mg tablet 1-12 TABLET BY ity of 00:00: MOUTH IN [place] THE Medical MORNING Branch AND 1 TABLET IN THE EVENING bumetanide 2022-0 Yes 1mg TAKE 1 Unive rs 1 mg tablet 1-12 TABLET BY ity of 00:00: MOUTH IN [place] THE Medical MORNING Branch AND 1 TABLET IN THE EVENING bumetanide 2022-0 Yes 1mg TAKE 1 Unive rs 1 mg tablet 1-12 TABLET BY ity of 00:00: MOUTH IN [place] 00 THE Medical MORNING Branch AND 1 TABLET IN THE EVENING bumetanide 2022-0 Yes 1mg TAKE 1 Unive rs 1 mg tablet 1-12 TABLET BY ity of 00:00: MOUTH IN [place] THE Medical MORNING Branch AND 1 TABLET IN THE EVENING bumetanide 2023-0 Yes 1mg TAKE 1 Unive rs 1 mg tablet 1-12 TABLET BY ity of 00:00: MOUTH IN [place] 00 THE Medical MORNING Branch AND 1 TABLET IN THE EVENING bumetanide 2022-0 Yes 1mg TAKE 1 Unive rs 1 mg tablet 1-12 TABLET BY ity of 00:00: MOUTH IN [place] 00 THE Medical MORNING Branch AND 1 TABLET IN THE EVENING bumetanide 2022-0 Yes 1mg TAKE 1 Unive rs 1 mg tablet 1-12 TABLET BY ity of 00:00: MOUTH IN [place] 00 THE Medical MORNING Branch AND 1 TABLET IN THE EVENING bumetanide 2022-0 Yes 1mg TAKE 1 Unive rs 1 mg tablet 1-12 TABLET BY ity of 00:00: MOUTH IN [place] 00 THE Medical MORNING Branch AND 1 TABLET IN THE EVENING bumetanide 2022-0 Yes 1mg TAKE 1 [facility] 1 mg tablet 1-12 TABLET BY [facility] 00:00: MOUTH IN [place] 00 THE Medical MORNING Branch AND 1 TABLET IN THE EVENING bumetanide 2022-0 Yes 1mg TAKE 1 [facility] 1 mg tablet 1-12 TABLET BY [facility] of 00:00: MOUTH IN [place] 00 THE Medical MORNING Branch AND 1 TABLET IN THE EVENING bumetanide 2022-0 Yes 1mg TAKE 1 [facility] 1 mg tablet 1-12 TABLET BY [facility] of 00:00: MOUTH IN [place] 00 THE Medical MORNING Branch AND 1 TABLET IN THE EVENING bumetanide 2022-0 Yes 1mg TAKE 1 [facility] 1 mg tablet 1-12 TABLET BY [facility] 00:00: MOUTH IN [place] 00 THE Medical MORNING Branch AND 1 TABLET IN THE EVENING bumetanide 2022-0 Yes 1mg TAKE 1 [facility] 1 mg tablet 1-12 TABLET BY [facility] of 00:00: MOUTH IN [place] 00 THE Medical MORNING Branch AND 1 TABLET IN THE EVENING bumetanide 2022-0 Yes 1mg TAKE 1 [facility] 1 mg tablet 1-12 TABLET BY [facility] 00:00: MOUTH IN [place] 00 THE Medical MORNING Branch AND 1 TABLET IN THE EVENING bumetanide 2022-0 Yes 1mg TAKE 1 [facility] 1 mg tablet 1-12 TABLET BY [facility] 00:00: MOUTH IN [place] 00 THE Medical MORNING Branch AND 1 TABLET IN THE EVENING bumetanide 2022-0 Yes 1mg TAKE 1 [facility] 1 mg tablet 1-12 TABLET BY [facility] 00:00: MOUTH IN [place] 00 THE Medical MORNING Branch AND 1 TABLET IN THE EVENING bumetanide 3-0 Yes 1mg TAKE 1 [facility] 1 mg tablet 1-12 TABLET BY [facility] 00:00: MOUTH IN [place] 00 THE Medical MORNING Branch AND 1 TABLET IN THE EVENING bumetanide 3-0 Yes 1mg TAKE 1 [facility] 1 mg tablet 1-12 TABLET BY [facility] 00:00: MOUTH IN [place] 00 THE Medical MORNING Branch AND 1 TABLET IN THE EVENING bumetanide 3-0 Yes 1mg TAKE 1 [facility] 1 mg tablet 1-12 TABLET BY [facility] 00:00: MOUTH IN [place] 00 THE Medical MORNING Branch AND 1 TABLET IN THE EVENING bumetanide 2022-0 Yes 1mg TAKE 1 [facility] 1 mg tablet 1-12 TABLET BY [facility] 00:00: MOUTH IN [place] 00 THE Medical MORNING Branch AND 1 TABLET IN THE EVENING bumetanide 2022-0 Yes 1mg TAKE 1 [facility] 1 mg tablet 1-12 TABLET BY [facility] 00:00: MOUTH IN [place] 00 THE Medical MORNING Branch AND 1 TABLET IN THE EVENING bumetanide 3-0 Yes 1mg TAKE 1 [facility] 1 mg tablet 1-12 TABLET BY [facility] 00:00: MOUTH IN [place] 00 THE Medical MORNING Branch AND 1 TABLET IN THE EVENING bumetanide 3-0 Yes 1mg TAKE 1 [facility] 1 mg tablet 1-12 TABLET BY [facility] 00:00: MOUTH IN [place] 00 THE Medical MORNING Branch AND 1 TABLET IN THE EVENING bumetanide 3-0 Yes 1mg TAKE 1 [facility] 1 mg tablet 1-12 TABLET BY [facility] 00:00: MOUTH IN [place] 00 THE Medical MORNING Branch AND 1 TABLET IN THE EVENING bumetanide 3-0 Yes 1mg TAKE 1 [facility] 1 mg tablet 1-12 TABLET BY [facility] 00:00: MOUTH IN [place] 00 THE Medical MORNING Branch AND 1 TABLET IN THE EVENING bumetanide 3-0 Yes 1mg TAKE 1 [facility] 1 mg tablet 1-12 TABLET BY [facility] 00:00: MOUTH IN [place] 00 THE Medical MORNING Branch AND 1 TABLET IN THE EVENING bumetanide 3-0 Yes 1mg TAKE 1 [facility] 1 mg tablet 1-12 TABLET BY [facility] 00:00: MOUTH IN [place] 00 THE Medical MORNING Branch AND 1 TABLET IN THE EVENING bumetanide 2022-0 Yes 1mg TAKE 1 [facility] 1 mg tablet 1-12 TABLET BY [facility] 00:00: MOUTH IN [place] 00 THE Medical MORNING Branch AND 1 TABLET IN THE EVENING bumetanide 2022-0 Yes 1mg TAKE 1 [facility] 1 mg tablet 1-12 TABLET BY [facility] 00:00: MOUTH IN [place] 00 THE Medical MORNING Branch AND 1 TABLET IN THE EVENING bumetanide 2022-0 Yes 1mg TAKE 1 [facility] 1 mg tablet 1-12 TABLET BY [facility] 00:00: MOUTH IN [place] 00 THE Medical MORNING Branch AND 1 TABLET IN THE EVENING bumetanide 2022-0 Yes 1mg TAKE 1 [facility] 1 mg tablet 1-12 TABLET BY [facility] 00:00: MOUTH IN [place] THE Medical MORNING Branch AND 1 TABLET IN THE EVENING bumetanide 2022-0 Yes 1mg TAKE 1 [facility] 1 mg tablet 1-12 TABLET BY [facility] 00:00: MOUTH IN [place] THE Medical MORNING Branch AND 1 TABLET IN THE EVENING bumetanide 2022-0 Yes 1mg TAKE 1 [facility] 1 mg tablet 1-12 TABLET BY [facility] 00:00: MOUTH IN [place] 00 THE Medical MORNING Branch AND 1 TABLET IN THE EVENING bumetanide 2022-0 Yes 1mg TAKE 1 [facility] 1 mg tablet 1-12 TABLET BY [facility] 00:00: MOUTH IN [place] THE Medical MORNING Branch AND 1 TABLET IN THE EVENING bumetanide 2022-0 Yes 1mg TAKE 1 [facility] 1 mg tablet 1-12 TABLET BY [facility] 00:00: MOUTH IN [place] 00 THE Medical MORNING Branch AND 1 TABLET IN THE EVENING bumetanide 2022-0 Yes 1mg TAKE 1 [facility] 1 mg tablet 1-12 TABLET BY [facility] 00:00: MOUTH IN [place] 00 THE Medical MORNING Branch AND 1 [...] by [facility] of tablet 00:00: mouth in [place] 00 the Medical morning. Branch carvediloL 2021-05 Yes 6.25mg Take 1 [facility] vers 6.25 mg 0-11 tablet by [facility] of tablet 00:00: mouth in [place] 00 the Medical morning Branch and 1 tablet in the evening. Take with meals. meclizine 2021-05 Yes 25mg Take 1 [facility] 25 mg 0-11 tablet by [facility] of tablet 00:00: mouth in [place] 00 the Medical morning Branch and 1 tablet at noon and 1 tablet in the evening. amiodarone 2021-05 Yes 200mg Take 1 [facility] 200 mg 0-11 tablet by [facility] of tablet 00:00: mouth in [place] the morning. Branch aspirin 81 2021-05 Yes 81mg Take 1 [facility] mg EC 0-11 tablet by [facility] of tablet 00:00: mouth in [place] the morning. Branch carvediloL 2021-05 Yes 6.25mg Take 1 [facility] vers 6.25 mg 0-11 tablet by [facility] of tablet 00:00: mouth in [place] the Medical morning Branch and 1 tablet in the evening. Take with meals. meclizine 2021-05 Yes 25mg Take 1 [facility] 25 mg 0-11 tablet by [facility] of tablet 00:00: mouth in [place] the Medical morning Branch and 1 tablet at noon and 1 tablet in the evening. amiodarone 2021-05 Yes 200mg Take 1 [facility] 200 mg 0-11 tablet by [facility] of tablet 00:00: mouth in [place] 00 the Medical morning. Branch aspirin 81 2021-05 Yes 81mg Take 1 [facility] mg EC 0-11 tablet by [facility] of tablet 00:00: mouth in [place] the morning. Branch carvediloL 2021-05 Yes 6.25mg Take 1 [facility] vers 6.25 mg 0-11 tablet by [facility] of tablet 00:00: mouth in [place] the Medical morning Branch and 1 tablet in the evening. Take with meals. meclizine 2021-05 Yes 25mg Take 1 [facility] 25 mg 0-11 tablet by [facility] of tablet 00:00: mouth in [place] the Medical morning Branch and 1 tablet at noon and 1 tablet in the evening. amiodarone 2021-05 Yes 200mg Take 1 [facility] 200 mg 0-11 tablet by [facility] of tablet 00:00: mouth in [place] the morning. Branch aspirin 81 2021-05 Yes 81mg Take 1 [facility] mg EC 0-11 tablet by [facility] of tablet 00:00: mouth in [place] the morning. Branch carvediloL 2021-05 Yes 6.25mg Take 1 [facility] 6.25 mg 0-11 tablet by [facility] of tablet 00:00: mouth in [place] the Medical morning Branch and 1 tablet in the evening. Take with meals. meclizine 2021-05 Yes 25mg Take 1 [facility] 25 mg 0-11 tablet by [facility] of tablet 00:00: mouth in [place] the Medical morning Branch and 1 tablet at noon and 1 tablet in the evening. amiodarone 2021-05 Yes 200mg Take 1 [facility] 200 mg 0-11 tablet by [facility] of tablet 00:00: mouth in [place] the morning. Branch aspirin 81 2021-05 Yes 81mg Take 1 [facility] mg EC 0-11 tablet by [facility] of tablet 00:00: mouth in [place] the morning. Branch carvediloL 2021-05 Yes 6.25mg Take 1 [facility] 6.25 mg 0-11 tablet by [facility] of tablet 00:00: mouth in [place] the Medical morning Branch and 1 tablet in the evening. Take with meals. meclizine 2021-05 Yes 25mg Take 1 [facility] 25 mg 0-11 tablet by [facility] of tablet 00:00: mouth in [place] the Medical morning Branch and 1 tablet at noon and 1 tablet in the evening. amiodarone 2021-05 Yes 200mg Take 1 [facility] 200 mg 0-11 tablet by [facility] of tablet 00:00: mouth in [place] the morning. Branch aspirin 81 2021-05 Yes 81mg Take 1 [facility] mg EC 0-11 tablet by [facility] of tablet 00:00: mouth in [place] the morning. Branch carvediloL 2021-05 Yes 6.25mg Take 1 [facility] 6.25 mg 0-11 tablet by [facility] tablet 00:00: mouth in [place] the Medical morning Branch and 1 tablet in the evening. Take with meals. meclizine 2021-05 Yes 25mg Take 1 [facility] 25 mg 0-11 tablet by [facility] of tablet 00:00: mouth in [place] the Medical morning Branch and 1 tablet at noon and 1 tablet in the evening. amiodarone 2021-05 Yes 200mg Take 1 [facility] 200 mg 0-11 tablet by [facility] of tablet 00:00: mouth in [place] the morning. Branch aspirin 81 2021-05 Yes 81mg Take 1 [facility] mg EC 0-11 tablet by [facility] of tablet 00:00: mouth in [place] the morning. Branch carvediloL 2021-05 Yes 6.25mg Take 1 [facility] 6.25 mg 0-11 tablet by [facility] tablet 00:00: mouth in [place] the Medical morning Branch and 1 tablet in the evening. Take with meals. meclizine 2021-05 Yes 25mg Take 1 [facility] 25 mg 0-11 tablet by [facility] of tablet 00:00: mouth in [place] the Medical morning Branch and 1 tablet at noon and 1 tablet in the evening. amiodarone 2021-05 Yes 200mg Take 1 [facility] 200 mg 0-11 tablet by [facility] of tablet 00:00: mouth in [place] the morning. Branch aspirin 81 2021-05 Yes 81mg Take 1 [facility] mg EC 0-11 tablet by [facility] of tablet 00:00: mouth in [place] the morning. Branch carvediloL 2021-05 Yes 6.25mg Take 1 [facility] 6.25 mg 0-11 tablet by [facility] tablet 00:00: mouth in [place] the morning Branch and 1 tablet in the evening. Take with meals. meclizine 2021-05 Yes 25mg Take 1 [facility] 25 mg 0-11 tablet by [facility] of tablet 00:00: mouth in [place] the morning Branch and 1 tablet at noon and 1 tablet in the evening. amiodarone 2021- Yes 200mg Take 1 [facility] 200 mg 0-11 tablet by [facility] of tablet 00:00: mouth in [place] the morning. Branch aspirin 81 2021-05 Yes 81mg Take 1 [facility] mg EC 0-11 tablet by [facility] of tablet 00:00: mouth in [place] the morning. Branch carvediloL 2021-05 Yes 6.25mg Take 1 [facility] 6.25 mg 0-11 tablet by [facility] tablet 00:00: mouth in [place] the morning Branch and 1 tablet in the evening. Take with meals. meclizine 2021-05 Yes 25mg Take 1 [facility] 25 mg 0-11 tablet by [facility] tablet 00:00: mouth in [place] the morning Branch and 1 tablet at noon and 1 tablet in the evening. amiodarone 2021-05 Yes 200mg Take 1 [facility] 200 mg 0-11 tablet by [facility] of tablet 00:00: mouth in [place] the . Branch aspirin 81 2021-05 Yes 81mg Take 1 [facility] mg EC 0-11 tablet by [facility] of tablet 00:00: mouth in [place] the . Branch carvediloL 2021-05 Yes 6.25mg Take 1 [facility] 6.25 mg 0-11 tablet by [facility] tablet 00:00: mouth in [place] the morning Branch and 1 tablet in the evening. Take with meals. meclizine 2021-05 Yes 25mg Take 1 [facility] 25 mg 0-11 tablet by [facility] tablet 00:00: mouth in [place] the Branch and 1 tablet at noon and 1 tablet in the evening. amiodarone 2021-05 Yes 200mg Take 1 [facility] 200 mg 0-11 tablet by [facility] of tablet 00:00: mouth in [place] the . Branch aspirin 81 2021-05 Yes 81mg Take 1 [facility] mg EC 0-11 tablet by [facility] of tablet 00:00: mouth in [place] the . Branch carvediloL 2021-05 Yes 6.25mg Take 1 [facility] 6.25 mg 0-11 tablet by [facility] of tablet 00:00: mouth in [place] the morning Branch and 1 tablet in the evening. Take with meals. meclizine 2021-05 Yes 25mg Take 1 [facility] 25 mg 0-11 tablet by [facility] of tablet 00:00: mouth in [place] the morning Branch and 1 tablet at noon and 1 tablet in the evening. amiodarone 2021-05 Yes 200mg Take 1 [facility] 200 mg 0-11 tablet by [facility] of tablet 00:00: mouth in [place] the morning. Branch aspirin 81 2021-05 Yes 81mg Take 1 [facility] mg EC 0-11 tablet by [facility] of tablet 00:00: mouth in [place] the morning. Branch carvediloL 2021-05 Yes 6.25mg Take 1 [facility] 6.25 mg 0-11 tablet by [facility] tablet 00:00: mouth in [place] the Medical morning Branch and 1 tablet in the evening. Take with meals. meclizine 2021-05 Yes 25mg Take 1 [facility] 25 mg 0-11 tablet by [facility] of tablet 00:00: mouth in [place] the morning Branch and 1 tablet at noon and 1 tablet in the evening. amiodarone 2021-05 Yes 200mg Take 1 [facility] 200 mg 0-11 tablet by [facility] of tablet 00:00: mouth in [place] the morning. Branch aspirin 81 2021-05 Yes 81mg Take 1 [facility] mg EC 0-11 tablet by [facility] of tablet 00:00: mouth in [place] the morning. Branch carvediloL 2021-05 Yes 6.25mg Take 1 [facility] 6.25 mg 0-11 tablet by [facility] tablet 00:00: mouth in [place] the morning Branch and 1 tablet in the evening. Take with meals. meclizine 2021-05 Yes 25mg Take 1 [facility] 25 mg 0-11 tablet by [facility] of tablet 00:00: mouth in [place] the morning Branch and 1 tablet at noon and 1 tablet in the evening. amiodarone 2021-05 Yes 200mg Take 1 [facility] 200 mg 0-11 tablet by [facility] of tablet 00:00: mouth in [place] the morning. Branch aspirin 81 2021-05 Yes 81mg Take 1 [facility] mg EC 0-11 tablet by [facility] of tablet 00:00: mouth in [place] the morning. Branch carvediloL 2021-05 Yes 6.25mg Take 1 [facility] 6.25 mg 0-11 tablet by [facility] of tablet 00:00: mouth in [place] the morning Branch and 1 tablet in the evening. Take with meals. meclizine 2021-05 Yes 25mg Take 1 [facility] 25 mg 0-11 tablet by [facility] of tablet 00:00: mouth in [place] the Medical morning Branch and 1 tablet at noon and 1 tablet in the evening. amiodarone 2021-05 Yes 200mg Take 1 [facility] 200 mg 0-11 tablet by [facility] of tablet 00:00: mouth in [place] the morning. Branch aspirin 81 2021-05 Yes 81mg Take 1 [facility] mg EC 0-11 tablet by [facility] of tablet 00:00: mouth in [place] the morning. Branch carvediloL 2021-05 Yes 6.25mg Take 1 [facility] 6.25 mg 0-11 tablet by [facility] of tablet 00:00: mouth in [place] the Medical morning Branch and 1 tablet in the evening. Take with meals. meclizine 2021-05 Yes 25mg Take 1 [facility] 25 mg 0-11 tablet by [facility] of tablet 00:00: mouth in [place] the Medical morning Branch and 1 tablet at noon and 1 tablet in the evening. amiodarone 2021-05 Yes 200mg Take 1 [facility] 200 mg 0-11 tablet by [facility] of tablet 00:00: mouth in [place] the Medical morning. Branch aspirin 81 2021-05 Yes 81mg Take 1 [facility] mg EC 0-11 tablet by [facility] of tablet 00:00: mouth in [place] the morning. Branch carvediloL 2021-05 Yes 6.25mg Take 1 [facility] 6.25 mg 0-11 tablet by [facility] of tablet 00:00: mouth in [place] the Medical morning Branch and 1 tablet in the evening. Take with meals. meclizine 2021-05 Yes 25mg Take 1 [facility] 25 mg 0-11 tablet by [facility] of tablet 00:00: mouth in [place] the Medical morning Branch and 1 tablet at noon and 1 tablet in the evening. amiodarone 2021-05 Yes 200mg Take 1 [facility] 200 mg 0-11 tablet by [facility] of tablet 00:00: mouth in [place] the Medical morning. Branch aspirin 81 2021-05 Yes 81mg Take 1 [facility] mg EC 0-11 tablet by [facility] of tablet 00:00: mouth in [place] the Medical morning. Branch carvediloL 2021-05 Yes 6.25mg Take 1 [facility] 6.25 mg 0-11 tablet by [facility] of tablet 00:00: mouth in [place] the Medical morning Branch and 1 tablet in the evening. Take with meals. meclizine 2021-05 Yes 25mg Take 1 [facility] 25 mg 0-11 tablet by [facility] of tablet 00:00: mouth in [place] the Medical morning Branch and 1 tablet at noon and 1 tablet in the evening. amiodarone 2021-05 Yes 200mg Take 1 [facility] 200 mg 0-11 tablet by [facility] of tablet 00:00: mouth in [place] the morning. Branch aspirin 81 2021-05 Yes 81mg Take 1 [facility] mg EC 0-11 tablet by [facility] of tablet 00:00: mouth in [place] the morning. Branch carvediloL 2021-05 Yes 6.25mg Take 1 [facility] 6.25 mg 0-11 tablet by [facility] of tablet 00:00: mouth in [place] the Medical morning Branch and 1 tablet in the evening. Take with meals. meclizine 2021-05 Yes 25mg Take 1 [facility] 25 mg 0-11 tablet by [facility] of tablet 00:00: mouth in [place] the morning Branch and 1 tablet at noon and 1 tablet in the evening. amiodarone 2021-05 Yes 200mg Take 1 [facility] 200 mg 0-11 tablet by [facility] of tablet 00:00: mouth in [place] the morning. Branch aspirin 81 2021-05 Yes 81mg Take 1 [facility] mg EC 0-11 tablet by [facility] of tablet 00:00: mouth in [place] the . Branch carvediloL 2021-05 Yes 6.25mg Take 1 [facility] 6.25 mg 0-11 tablet by [facility] of tablet 00:00: mouth in [place] the morning Branch and 1 tablet in the evening. Take with meals. meclizine 2021-05 Yes 25mg Take 1 [facility] 25 mg 0-11 tablet by [facility] of tablet 00:00: mouth in [place] the morning Branch and 1 tablet at noon and 1 tablet in the evening. amiodarone 2021- Yes 200mg Take 1 [facility] 200 mg 0-11 tablet by [facility] of tablet 00:00: mouth in [place] the morning. Branch aspirin 81 2021-05 Yes 81mg Take 1 [facility] mg EC 0-11 tablet by [facility] of tablet 00:00: mouth in [place] the morning. Branch carvediloL 2021-05 Yes 6.25mg Take 1 [facility] 6.25 mg 0-11 tablet by [facility] of tablet 00:00: mouth in [place] the morning Branch and 1 tablet in the evening. Take with meals. meclizine 2021-05 Yes 25mg Take 1 [facility] 25 mg 0-11 tablet by [facility] of tablet 00:00: mouth in [place] the morning Branch and 1 tablet at noon and 1 tablet in the evening. amiodarone 2021-05 Yes 200mg Take 1 [facility] 200 mg 0-11 tablet by [facility] of tablet 00:00: mouth in [place] the . Branch aspirin 81 2021-05 Yes 81mg Take 1 [facility] mg EC 0-11 tablet by [facility] of tablet 00:00: mouth in [place] the . Branch carvediloL 2021-05 Yes 6.25mg Take 1 [facility] 6.25 mg 0-11 tablet by [facility] of tablet 00:00: mouth in [place] the morning Branch and 1 tablet in the evening. Take with meals. meclizine 2021-05 Yes 25mg Take 1 [facility] 25 mg 0-11 tablet by [facility] of tablet 00:00: mouth in [place] the morning Branch and 1 tablet at noon and 1 tablet in the evening. amiodarone 2021-05 Yes 200mg Take 1 [facility] 200 mg 0-11 tablet by [facility] of tablet 00:00: mouth in [place] the morning. Branch aspirin 2021-05 Yes 81mg Take 1 [facility] (NOEL LOW 0-11 tablet by [facility] of DOSE 00:00: mouth in [place] ASPIRIN) 81 00 the Medical mg EC morning. Branch tablet carvediloL 2021-05 Yes 6.25mg Take 1 [facility] 6.25 mg 0-11 tablet by [facility] tablet 00:00: mouth in [place] the morning Branch and 1 tablet in the evening. Take with meals. meclizine 2021-05 Yes 25mg Take 1 [facility] 25 mg 0-11 tablet by [facility] of tablet 00:00: mouth in [place] [address] the morning Branch and 1 tablet at noon and 1 tablet in the evening. amiodarone 2021-05 Yes 200mg Take 1 [facility] 200 mg 0-11 tablet by [facility] of tablet 00:00: mouth in [place] 00 the Medical morning. Branch aspirin 2021-05 Yes 81mg Take 1 [facility] (NOEL LOW 0-11 tablet by [facility] of DOSE 00:00: mouth in [place] ASPIRIN) 81 00 the Medical mg EC morning. Branch tablet carvediloL 2021-05 Yes 6.25mg Take 1 [facility] 6.25 mg 0-11 tablet by [facility] of tablet 00:00: mouth in [place] 00 the Medical morning Branch and 1 tablet in the evening. Take with meals. meclizine 2021-05 Yes 25mg Take 1 [facility] 25 mg 0-11 tablet by [facility] of tablet 00:00: mouth in [place] 00 the Medical morning Branch and 1 tablet at noon and 1 tablet in the evening. amiodarone 2021-05 Yes 200mg Take 1 [facility] 200 mg 0-11 tablet by [facility] of tablet 00:00: mouth in [place] 00 the Medical morning. Branch aspirin 2021-05 Yes 81mg Take 1 [facility] (NOEL LOW 0-11 tablet by [facility] of DOSE 00:00: mouth in [place] ASPIRIN) 81 00 the Medical mg EC morning. Branch tablet carvediloL 2021-05 Yes 6.25mg Take 1 [facility] 6.25 mg 0-11 tablet by [facility] tablet 00:00: mouth in [place] 00 the Medical morning Branch and 1 tablet in the evening. Take with meals. meclizine 2021-05 Yes 25mg Take 1 [facility] 25 mg 0-11 tablet by [facility] of tablet 00:00: mouth in [place] 00 the Medical morning Branch and 1 tablet at noon and 1 tablet in the evening. amiodarone 2021-05 Yes 200mg Take 1 [facility] 200 mg 0-11 tablet by [facility] of tablet 00:00: mouth in [place] 00 the Medical morning. Branch aspirin 2021-05 Yes 81mg Take 1 [facility] (NEOL LOW 0-11 tablet by [facility] of DOSE 00:00: mouth in [place] ASPIRIN) 81 00 the Medical mg EC morning. Branch tablet carvediloL 2021-05 Yes 6.25mg Take 1 [facility] 6.25 mg 0-11 tablet by [facility] of tablet 00:00: mouth in [place] 00 the Medical morning Branch and 1 tablet in the evening. Take with meals. meclizine 2021-05 Yes 25mg Take 1 [facility] 25 mg 0-11 tablet by [facility] of tablet 00:00: mouth in [place] 00 the Medical morning Branch and 1 tablet at noon and 1 tablet in the evening. amiodarone 2021-05 Yes 200mg Take 1 [facility] 200 mg 0-11 tablet by [facility] of tablet 00:00: mouth in [place] 00 the Medical morning. Branch aspirin 2021-05 Yes 81mg Take 1 [facility] (NOEL LOW 0-11 tablet by [facility] of DOSE 00:00: mouth in [place] ASPIRIN) 81 00 the Medical mg EC morning. Branch tablet carvediloL 2021-05 Yes 6.25mg Take 1 [facility] 6.25 mg 0-11 tablet by [facility] tablet 00:00: mouth in [place] 00 the Medical morning Branch and 1 tablet in the evening. Take with meals. meclizine 2021-05 Yes 25mg Take 1 [facility] 25 mg 0-11 tablet by [facility] of tablet 00:00: mouth in [place] the Medical morning Branch and 1 tablet at noon and 1 tablet in the evening. amiodarone 2021-05 Yes 200mg Take 1 [facility] 200 mg 0-11 tablet by [facility] of tablet 00:00: mouth in [place] 00 the Medical morning. Branch aspirin 2021-05 Yes 81mg Take 1 [facility] (NOEL LOW 0-11 tablet by [facility] of DOSE 00:00: mouth in [place] ASPIRIN) 81 00 the Medical mg EC morning. Branch tablet carvediloL 2021-05 Yes 6.25mg Take 1 [facility] 6.25 mg 0-11 tablet by [facility] of tablet 00:00: mouth in [place] 00 the Medical morning Branch and 1 tablet in the evening. Take with meals. meclizine 2021-05 Yes 25mg Take 1 [facility] 25 mg 0-11 tablet by [facility] of tablet 00:00: mouth in [place] 00 the Medical morning Branch and 1 tablet at noon and 1 tablet in the evening. amiodarone 2021-05 Yes 200mg Take 1 [facility] 200 mg 0-11 tablet by [facility] of tablet 00:00: mouth in [place] 00 the Medical morning. Branch aspirin 2021-05 Yes 81mg Take 1 [facility] (NOEL LOW 0-11 tablet by [facility] of DOSE 00:00: mouth in [place] ASPIRIN) 81 00 the Medical mg EC morning. Branch tablet carvediloL 2021-05 Yes 6.25mg Take 1 [facility] 6.25 mg 0-11 tablet by [facility] of tablet 00:00: mouth in [place] 00 the Medical morning Branch and 1 tablet in the evening. Take with meals. meclizine 2021-05 Yes 25mg Take 1 [facility] 25 mg 0-11 tablet by [facility] of tablet 00:00: mouth in [place] 00 the Medical morning Branch and 1 tablet at noon and 1 tablet in the evening. amiodarone 2021-05 Yes 200mg Take 1 [facility] 200 mg 0-11 tablet by [facility] of tablet 00:00: mouth in [place] [address] the Medical morning. Branch aspirin 2021-05 Yes 81mg Take 1 [facility] (NOEL LOW 0-11 tablet by [facility] of DOSE 00:00: mouth in [place] ASPIRIN) 81 00 the Medical mg EC morning. Branch tablet carvediloL 2021-05 Yes 6.25mg Take 1 [facility] 6.25 mg 0-11 tablet by [facility] of tablet 00:00: mouth in [place] the Medical morning Branch and 1 tablet in the evening. Take with meals. meclizine 2021-05 Yes 25mg Take 1 [facility] 25 mg 0-11 tablet by [facility] of tablet 00:00: mouth in [place] the Medical morning Branch and 1 tablet at noon and 1 tablet in the evening. amiodarone 2021-05 Yes 200mg Take 1 [facility] 200 mg 0-11 tablet by [facility] of tablet 00:00: mouth in [place] [address] the Medical morning. Branch aspirin 2021-05 Yes 81mg Take 1 [facility] (NOEL LOW 0-11 tablet by [facility] of DOSE 00:00: mouth in [place] ASPIRIN) 81 00 the Medical mg EC morning. Branch tablet carvediloL 2021-05 Yes 6.25mg Take 1 [facility] 6.25 mg 0-11 tablet by [facility] of tablet 00:00: mouth in [place] the Medical morning Branch and 1 tablet in the evening. Take with meals. meclizine 2021-05 Yes 25mg Take 1 [facility] 25 mg 0-11 tablet by [facility] of tablet 00:00: mouth in [place] [address] the Medical morning Branch and 1 tablet at noon and 1 tablet in the evening. amiodarone 2021-05 Yes 200mg Take 1 [facility] 200 mg 0-11 tablet by [facility] of tablet 00:00: mouth in [place] 00 the Medical morning. Branch aspirin 2021-05 Yes 81mg Take 1 [facility] (NOEL LOW 0-11 tablet by [facility] of DOSE 00:00: mouth in [place] ASPIRIN) 81 00 the Medical mg EC morning. Branch tablet carvediloL 2021-05 Yes 6.25mg Take 1 [facility] 6.25 mg 0-11 tablet by [facility] of tablet 00:00: mouth in [place] 00 the Medical morning Branch and 1 tablet in the evening. Take with meals. meclizine 2021-05 Yes 25mg Take 1 [facility] 25 mg 0-11 tablet by [facility] of tablet 00:00: mouth in [place] 00 the Medical morning Branch and 1 tablet at noon and 1 tablet in the evening. amiodarone 2021-05 Yes 200mg Take 1 [facility] 200 mg 0-11 tablet by [facility] of tablet 00:00: mouth in [place] 00 the Medical morning. Branch aspirin 2021-05 Yes 81mg Take 1 [facility] (NOEL LOW 0-11 tablet by [facility] of DOSE 00:00: mouth in [place] ASPIRIN) 81 00 the Medical mg EC morning. Branch tablet carvediloL 2021-05 Yes 6.25mg Take 1 [facility] 6.25 mg 0-11 tablet by [facility] tablet 00:00: mouth in [place] 00 the Medical morning Branch and 1 tablet in the evening. Take with meals. meclizine 2021-05 Yes 25mg Take 1 [facility] 25 mg 0-11 tablet by [facility] of tablet 00:00: mouth in [place] 00 the Medical morning Branch and 1 tablet at noon and 1 tablet in the evening. amiodarone 2021-05 Yes 200mg Take 1 [facility] 200 mg 0-11 tablet by [facility] of tablet 00:00: mouth in [place] 00 the Medical morning. Branch aspirin 2021-05 Yes 81mg Take 1 [facility] (NOEL LOW 0-11 tablet by [facility] of DOSE 00:00: mouth in [place] ASPIRIN) 81 00 the Medical mg EC morning. Branch tablet carvediloL 2021-05 Yes 6.25mg Take 1 [facility] 6.25 mg 0-11 tablet by [facility] of tablet 00:00: mouth in [place] 00 the Medical morning Branch and 1 tablet in the evening. Take with meals. meclizine 2021-05 Yes 25mg Take 1 [facility] 25 mg 0-11 tablet by [facility] of tablet 00:00: mouth in [place] 00 the Medical morning Branch and 1 tablet at noon and 1 tablet in the evening. amiodarone 2021-05 Yes 200mg Take 1 [facility] ers 200 mg 0-11 tablet by [facility] of tablet 00:00: mouth in [place] 00 the Medical morning. Branch aspirin 2021-05 Yes 81mg Take 1 [facility] (NOEL LOW 0-11 tablet by ity of DOSE 00:00: mouth in [place] ASPIRIN) 81 00 the Medical mg EC morning. Branch tablet carvediloL 2021-05 Yes 6.25mg Take 1 [facility] vers 6.25 mg 0-11 tablet by [facility] of tablet 00:00: mouth in [place] 00 the Medical morning Branch and 1 tablet in the evening. Take with meals. meclizine 2021-05 Yes 25mg Take 1 [facility] 25 mg 0-11 tablet by [facility] of tablet 00:00: mouth in [place] the Medical morning Branch and 1 tablet at noon and 1 tablet in the evening. amiodarone 2021-05 Yes 200mg Take 1 [facility] 200 mg 0-11 tablet by [facility] of tablet 00:00: mouth in [place] the Medical morning. Branch aspirin 2021-05 Yes 81mg Take 1 [facility] (NOEL LOW 0-11 tablet by ity of DOSE 00:00: mouth in [place] ASPIRIN) 81 00 the Medical mg EC morning. Branch tablet carvediloL 2021-05 Yes 6.25mg Take 1 [facility] vers 6.25 mg 0-11 tablet by [facility] of tablet 00:00: mouth in [place] 00 the Medical morning Branch and 1 tablet in the evening. Take with meals. meclizine 2021-05 Yes 25mg Take 1 [facility] 25 mg 0-11 tablet by [facility] of tablet 00:00: mouth in [place] 00 the Medical morning Branch and 1 tablet at noon and 1 tablet in the evening. amiodarone 2021-05 Yes 200mg Take 1 [facility] 200 mg 0-11 tablet by [facility] of tablet 00:00: mouth in [place] 00 the Medical morning. Branch aspirin 81 2021-05 Yes 81mg Take 1 [facility] mg EC 0-11 tablet by it[facility] of tablet 00:00: mouth in [place] 00 the Medical morning. Branch carvediloL 2021-05 Yes 6.25mg Take 1 [facility] vers 6.25 mg 0-11 tablet by [facility] of tablet 00:00: mouth in [place] the Medical morning Branch and 1 tablet in the evening. Take with meals. meclizine 2021-05 Yes 25mg Take 1 [facility] 25 mg 0-11 tablet by [facility] of tablet 00:00: mouth in [place] the Medical morning Branch and 1 tablet at noon and 1 tablet in the evening. amiodarone 2021-05 Yes 200mg Take 1 [facility] 200 mg 0-11 tablet by [facility] of tablet 00:00: mouth in [place] the morning. Branch aspirin 81 2021-05 Yes 81mg Take 1 [facility] mg EC 0-11 tablet by [facility] of tablet 00:00: mouth in [place] the morning. Branch carvediloL 2021-05 Yes 6.25mg Take 1 [facility] 6.25 mg 0-11 tablet by [facility] of tablet 00:00: mouth in [place] the Medical morning Branch and 1 tablet in the evening. Take with meals. meclizine 2021-05 Yes 25mg Take 1 [facility] 25 mg 0-11 tablet by [facility] of tablet 00:00: mouth in [place] the Medical morning Branch and 1 tablet at noon and 1 tablet in the evening. amiodarone 2021-05 Yes 200mg Take 1 [facility] 200 mg 0-11 tablet by it[facility] of tablet 00:00: mouth in [place] the morning. Branch aspirin 81 2021-05 Yes 81mg Take 1 [facility] mg EC 0-11 tablet by [facility] of tablet 00:00: mouth in [place] the morning. Branch carvediloL 2021-05 Yes 6.25mg Take 1 [facility] 6.25 mg 0-11 tablet by [facility] of tablet 00:00: mouth in [place] the Medical morning Branch and 1 tablet in the evening. Take with meals. meclizine 2021-05 Yes 25mg Take 1 [facility] 25 mg 0-11 tablet by [facility] of tablet 00:00: mouth in [place] the Medical morning Branch and 1 tablet at noon and 1 tablet in the evening. amiodarone 2021-05 Yes 200mg Take 1 [facility] 200 mg 0-11 tablet by it[facility] of tablet 00:00: mouth in [place] the Medical morning. Branch aspirin 81 2021-05 Yes 81mg Take 1 [facility] mg EC 0-11 tablet by [facility] of tablet 00:00: mouth in [place] the morning. Branch carvediloL 2021-05 Yes 6.25mg Take 1 [facility] vers 6.25 mg 0-11 tablet by [facility] of tablet 00:00: mouth in [place] the Medical morning Branch and 1 tablet in the evening. Take with meals. meclizine 2021-05 Yes 25mg Take 1 [facility] 25 mg 0-11 tablet by [facility] of tablet 00:00: mouth in [place] the Medical morning Branch and 1 tablet at noon and 1 tablet in the evening. amiodarone 2021-05 Yes 200mg Take 1 [facility] 200 mg 0-11 tablet by it[facility] of tablet 00:00: mouth in [place] the morning. Branch aspirin 81 2021-05 Yes 81mg Take 1 [facility] mg EC 0-11 tablet by it[facility] of tablet 00:00: mouth in [place] the morning. Branch carvediloL 2021-05 Yes 6.25mg Take 1 [facility] vers 6.25 mg 0-11 tablet by it[facility] of tablet 00:00: mouth in [place] the Medical morning Branch and 1 tablet in the evening. Take with meals. meclizine 2021-05 Yes 25mg Take 1 [facility] 25 mg 0-11 tablet by it[facility] of tablet 00:00: mouth in [place] the Medical morning Branch and 1 tablet at noon and 1 tablet in the evening. amiodarone 2021-05 Yes 200mg Take 1 [facility] 200 mg 0-11 tablet by it[facility] of tablet 00:00: mouth in [place] the morning. Branch aspirin 81 2021-05 Yes 81mg Take 1 [facility] mg EC 0-11 tablet by ity of tablet 00:00: mouth in [place] the morning. Branch carvediloL 2021-05 Yes 6.25mg Take 1 [facility] vers 6.25 mg 0-11 tablet by it[facility] of tablet 00:00: mouth in [place] the Medical morning Branch and 1 tablet in the evening. Take with meals. meclizine 2021-05 Yes 25mg Take 1 [facility] 25 mg 0-11 tablet by it[facility] of tablet 00:00: mouth in [place] the Medical morning Branch and 1 tablet at noon and 1 tablet in the evening. amiodarone 2021-05 Yes 200mg Take 1 [facility] 200 mg 0-11 tablet by ity of tablet 00:00: mouth in [place] the . Branch aspirin 81 2021-05 Yes 81mg Take 1 [facility] mg EC 0-11 tablet by ity of tablet 00:00: mouth in [place] the morning. Branch carvediloL 2021-05 Yes 6.25mg Take 1 [facility] vers 6.25 mg 0-11 tablet by ity of tablet 00:00: mouth in [place] the morning Branch and 1 tablet in the evening. Take with meals. meclizine 2021-05 Yes 25mg Take 1 [facility] 25 mg 0-11 tablet by it[facility] of tablet 00:00: mouth in [place] the morning Branch and 1 tablet at noon and 1 tablet in the evening. amiodarone 2021-05 Yes 200mg Take 1 [facility] 200 mg 0-11 tablet by ity of tablet 00:00: mouth in [place] the . Branch aspirin 81 2021-05 Yes 81mg Take 1 [facility] mg EC 0-11 tablet by ity of tablet 00:00: mouth in [place] the morning. Branch carvediloL 2021-05 Yes 6.25mg Take 1 [facility] vers 6.25 mg 0-11 tablet by ity of tablet 00:00: mouth in [place] the morning Branch and 1 tablet in the evening. Take with meals. meclizine 2021-05 Yes 25mg Take 1 [facility] 25 mg 0-11 tablet by it[facility] of tablet 00:00: mouth in [place] the morning Branch and 1 tablet at noon and 1 tablet in the evening. amiodarone 2021-05 Yes 200mg Take 1 [facility] 200 mg 0-11 tablet by ity of tablet 00:00: mouth in [place] the morning. Branch aspirin 81 2021-05 Yes 81mg Take 1 [facility] mg EC 0-11 tablet by ity of tablet 00:00: mouth in [place] the morning. Branch carvediloL 2021-05 Yes 6.25mg Take 1 [facility] vers 6.25 mg 0-11 tablet by it[facility] of tablet 00:00: mouth in [place] the morning Branch and 1 tablet in the evening. Take with meals. meclizine 2021-05 Yes 25mg Take 1 [facility] 25 mg 0-11 tablet by it[facility] of tablet 00:00: mouth in [place] the Medical morning Branch and 1 tablet at noon and 1 tablet in the evening. amiodarone 2021-05 Yes 200mg Take 1 [facility] 200 mg 0-11 tablet by ity of tablet 00:00: mouth in [place] the morning. Branch aspirin 81 2021-05 Yes 81mg Take 1 [facility] mg EC 0-11 tablet by ity of tablet 00:00: mouth in [place] the morning. Branch carvediloL 2021-05 Yes 6.25mg Take 1 [facility] vers 6.25 mg 0-11 tablet by it[facility] of tablet 00:00: mouth in [place] the Medical morning Branch and 1 tablet in the evening. Take with meals. meclizine 2021-05 Yes 25mg Take 1 [facility] 25 mg 0-11 tablet by it[facility] of tablet 00:00: mouth in [place] the Medical morning Branch and 1 tablet at noon and 1 tablet in the evening. amiodarone 2021-05 Yes 200mg Take 1 [facility] 200 mg 0-11 tablet by ity of tablet 00:00: mouth in [place] the morning. Branch aspirin 81 2021-05 Yes 81mg Take 1 [facility] mg EC 0-11 tablet by it[facility] of tablet 00:00: mouth in [place] the morning. Branch carvediloL 2021-05 Yes 6.25mg Take 1 [facility] vers 6.25 mg 0-11 tablet by it[facility] of tablet 00:00: mouth in [place] the Medical morning Branch and 1 tablet in the evening. Take with meals. meclizine 2021-05 Yes 25mg Take 1 [facility] 25 mg 0-11 tablet by it[facility] of tablet 00:00: mouth in [place] the Medical morning Branch and 1 tablet at noon and 1 tablet in the evening. amiodarone 2021-05 Yes 200mg Take 1 [facility] 200 mg 0-11 tablet by it[facility] of tablet 00:00: mouth in [place] the Medical morning. Branch aspirin 81 2021-05 Yes 81mg Take 1 [facility] mg EC 0-11 tablet by it[facility] of tablet 00:00: mouth in [place] the Medical morning. Branch carvediloL 2021-05 Yes 6.25mg Take 1 [facility] vers 6.25 mg 0-11 tablet by [facility] of tablet 00:00: mouth in [place] the Medical morning Branch and 1 tablet in the evening. Take with meals. meclizine 2021-05 Yes 25mg Take 1 [facility] 25 mg 0-11 tablet by [facility] of tablet 00:00: mouth in [place] the Medical morning Branch and 1 tablet at noon and 1 tablet in the evening. amiodarone 2021-05 Yes 200mg Take 1 [facility] 200 mg 0-11 tablet by it[facility] of tablet 00:00: mouth in [place] the morning. Branch aspirin 81 2021-05 Yes 81mg Take 1 [facility] mg EC 0-11 tablet by it[facility] of tablet 00:00: mouth in [place] the morning. Branch carvediloL 2021-05 Yes 6.25mg Take 1 [facility] vers 6.25 mg 0-11 tablet by [facility] of tablet 00:00: mouth in [place] the Medical morning Branch and 1 tablet in the evening. Take with meals. meclizine 2021-05 Yes 25mg Take 1 [facility] 25 mg 0-11 tablet by it[facility] of tablet 00:00: mouth in [place] the Medical morning Branch and 1 tablet at noon and 1 tablet in the evening. amiodarone 2021-05 Yes 200mg Take 1 [facility] 200 mg 0-11 tablet by it[facility] of tablet 00:00: mouth in [place] the morning. Branch aspirin 81 2021-05 Yes 81mg Take 1 [facility] mg EC 0-11 tablet by ity of tablet 00:00: mouth in [place] the morning. Branch carvediloL 2021-05 Yes 6.25mg Take 1 [facility] vers 6.25 mg 0-11 tablet by it[facility] of tablet 00:00: mouth in [place] the Medical morning Branch and 1 tablet in the evening. Take with meals. meclizine 2021-05 Yes 25mg Take 1 [facility] 25 mg 0-11 tablet by ity of tablet 00:00: mouth in [place] the Medical morning Branch and 1 tablet at noon and 1 tablet in the evening. amiodarone 2021-05 Yes 200mg Take 1 [facility] 200 mg 0-11 tablet by ity of tablet 00:00: mouth in [place] the Medical morning. Branch aspirin 81 2021-05 Yes 81mg Take 1 [facility] mg EC 0-11 tablet by ity of tablet 00:00: mouth in [place] the . Branch carvediloL 2021-05 Yes 6.25mg Take 1 [facility] vers 6.25 mg 0-11 tablet by it[facility] of tablet 00:00: mouth in [place] the Medical morning Branch and 1 tablet in the evening. Take with meals. meclizine 2021-05 Yes 25mg Take 1 [facility] 25 mg 0-11 tablet by ity of tablet 00:00: mouth in [place] the Medical morning Branch and 1 tablet at noon and 1 tablet in the evening. amiodarone 2021-05 Yes 200mg Take 1 [facility] 200 mg 0-11 tablet by ity of tablet 00:00: mouth in [place] the morning. Branch aspirin 81 2021-05 Yes 81mg Take 1 [facility] mg EC 0-11 tablet by ity of tablet 00:00: mouth in [place] the . Branch carvediloL 2021-05 Yes 6.25mg Take 1 [facility] vers 6.25 mg 0-11 tablet by it[facility] of tablet 00:00: mouth in [place] the morning Branch and 1 tablet in the evening. Take with meals. meclizine 2021-05 Yes 25mg Take 1 [facility] 25 mg 0-11 tablet by it[facility] of tablet 00:00: mouth in [place] the morning Branch and 1 tablet at noon and 1 tablet in the evening. amiodarone 2021-05 Yes 200mg Take 1 [facility] 200 mg 0-11 tablet by ity of tablet 00:00: mouth in [place] the morning. Branch bumetanide 2021-0 Yes 1mg Take 1 [facility] 1 mg tablet 7-19 tablet by ity of 00:00: mouth in [place] the Medical morning Branch and 1 tablet in the evening. bumetanide 2-0 Yes 1mg Take 1 [facility] 1 mg tablet 7-19 tablet by ity of 00:00: mouth in [place] the Medical morning Branch and 1 tablet in the evening. bumetanide 2021-0 Yes 1mg Take 1 [facility] 1 mg tablet 7-19 tablet by ity of 00:00: mouth in [place] the Medical morning Branch and 1 tablet in the evening. bumetanide 2022-0 Yes 1mg Take 1 [facility] 1 mg tablet 7-19 tablet by ity of 00:00: mouth in [place] 00 the Medical morning Branch and 1 tablet in the evening. bumetanide 2022-0 Yes 1mg Take 1 [facility] 1 mg tablet 7-19 tablet by ity of 00:00: mouth in [place] 00 the Medical morning Branch and 1 tablet in the evening. bumetanide 2022-0 Yes 1mg Take 1 [facility] 1 mg tablet 7-19 tablet by ity of 00:00: mouth in [place] 00 the Medical morning Branch and 1 tablet in the evening. bumetanide 2022-0 Yes 1mg Take 1 [facility] 1 mg tablet 7-19 tablet by ity of 00:00: mouth in [place] 00 the Medical morning Branch and 1 tablet in the evening. bumetanide 2022-0 Yes 1mg Take 1 [facility] 1 mg tablet 7-19 tablet by ity of 00:00: mouth in [place] 00 the Medical morning Branch and 1 tablet in the evening. bumetanide 2022-0 Yes 1mg Take 1 [facility] 1 mg tablet 7-19 tablet by ity of 00:00: mouth in [place] 00 the Medical morning Branch and 1 tablet in the evening. bumetanide 2022-0 Yes 1mg Take 1 [facility] 1 mg tablet 7-19 tablet by ity of 00:00: mouth in [place] 00 the Medical morning Branch and 1 tablet in the evening. bumetanide 2022-0 Yes 1mg Take 1 [facility] 1 mg tablet 7-19 tablet by ity of 00:00: mouth in [place] 00 the Medical morning Branch and 1 tablet in the evening. bumetanide 2022-0 Yes 1mg Take 1 [facility] 1 mg tablet 7-19 tablet by ity of 00:00: mouth in [place] 00 the Medical morning Branch and 1 tablet in the evening. bumetanide 2022-0 Yes 1mg Take 1 [facility] 1 mg tablet 7-19 tablet by ity of 00:00: mouth in [place] 00 the Medical morning Branch and 1 tablet in the evening. bumetanide 2022-0 Yes 1mg Take 1 [facility] 1 mg tablet 7-19 tablet by ity of 00:00: mouth in [place] 00 the Medical morning Branch and 1 tablet in the evening. bumetanide 2022-0 Yes 1mg Take 1 [facility] 1 mg tablet 7-19 tablet by ity of 00:00: mouth in [place] 00 the Medical morning Branch and 1 tablet in the evening. bumetanide 2-0 Yes 1mg Take 1 [facility] 1 mg tablet 7-19 tablet by ity of 00:00: mouth in [place] 00 the Medical morning Branch and 1 tablet in the evening. bumetanide 2-0 Yes 1mg Take 1 [facility] 1 mg tablet 7-19 tablet by ity of 00:00: mouth in [place] 00 the Medical morning Branch and 1 tablet in the evening. bumetanide 2-0 Yes 1mg Take 1 [facility] 1 mg tablet 7-19 tablet by ity of 00:00: mouth in [place] 00 the Medical morning Branch and 1 tablet in the evening. bumetanide 2-0 Yes 1mg Take 1 [facility] 1 mg tablet 7-19 tablet by ity of 00:00: mouth in [place] 00 the Medical morning Branch and 1 tablet in the evening. bumetanide 2021-0 Yes 1mg Take 1 [facility] 1 mg tablet 7-19 tablet by ity of 00:00: mouth in [place] 00 the Medical morning Branch and 1 tablet in the evening. bumetanide 2-0 2022- No 1mg Take 1 [facility] ers 1 mg tablet 7-19 -12 tablet by it y of 00:00: 00:00 mouth in [place] 00 :00 the Medical morning Branch and 1 tablet in the evening. Mupirocin 2 Mupirocin 2 2021-0 2022- No 1{appli BID Mupirocin % % 7- 07-24 cation} 2 % 00:00: 00:00 00 :00 glimepiride 2022-0 Yes 2mg Take 2 mg U nivers 2 mg tablet 4-08 by mouth ity of 16:21: daily with [place] [address] breakfast. Medical Branch glimepiride 2022-0 Yes 2mg Take 2 mg [facility] nivers 2 mg tablet 4-08 by mouth ity of 16:21: daily with [place] [address] breakfast. Medical Branch glimepiride 2022-0 Yes 2mg Take 2 mg [facility] nivers 2 mg tablet 4-08 by mouth ity of 16:21: daily with [place] [address] breakfast. Medical Branch glimepiride 2-0 Yes 2mg Take 2 mg [facility] n[facility] 2 mg tablet 4-08 by mouth ity of 16:21: daily with [place] [address] breakfast. Medical Branch glimepiride 2-0 Yes 2mg Take 2 mg [facility] nivers 2 mg tablet 4-08 by mouth ity of 16:21: daily with [place] [address] breakfast. Medical Branch glimepiride 2022-0 Yes 2mg Take 2 mg [facility] n[facility] 2 mg tablet 4-08 by mouth ity of 16:21: daily with [place] [address] breakfast. Medical Branch glimepiride 2-0 Yes 2mg Take 2 mg [facility] n[facility] 2 mg tablet 4-08 by mouth ity of 16:21: daily with [place] [address] breakfast. Medical Branch glimepiride 2-0 Yes 2mg Take 2 mg [facility] nivers 2 mg tablet 4-08 by mouth ity of 16:21: daily with [place] [address] breakfast. Medical Branch glimepiride 2-0 Yes 2mg Take 2 mg U nivers 2 mg tablet 4-08 by mouth ity of 16:21: daily with [place] [address] breakfast. Medical Branch glimepiride 2-0 Yes 2mg Take 2 mg U nivers 2 mg tablet 4-08 by mouth ity of 16:21: daily with [place] [address] breakfast. Medical Branch glimepiride 2-0 Yes 2mg Take 2 mg [facility] nivers 2 mg tablet 4-08 by mouth ity of 16:21: daily with [place] [address] breakfast. Medical Branch glimepiride 2-0 Yes 2mg Take 2 mg U nivers 2 mg tablet 4-08 by mouth ity of 16:21: daily with [place] [address] breakfast. Medical Branch glimepiride 2-0 Yes 2mg Take 2 mg [facility] nivers 2 mg tablet 4-08 by mouth ity of 16:21: daily with [place] [address] breakfast. Medical Branch glimepiride 2022-0 Yes 2mg Take 2 mg [facility] nivers 2 mg tablet 4-08 by mouth ity of 16:21: daily with [place] [address] breakfast. Medical Branch glimepiride 2022-0 Yes 2mg Take 2 mg [facility] nivers 2 mg tablet 4-08 by mouth ity of 16:21: daily with [place] [address] breakfast. [facility] Branch glimepiride 2021-0 Yes 2mg Take 2 mg U nivers 2 mg tablet 4-08 by mouth ity of 16:21: daily with [place] [address] breakfast. [facility] Branch glimepiride 2021-0 Yes 2mg Take 2 mg U nivers 2 mg tablet 4-08 by mouth ity of 16:21: daily with [place] [address] breakfast. [facility] Branch glimepiride 2021-0 Yes 2mg Take 2 mg U nivers 2 mg tablet 4-08 by mouth ity of 16:21: daily with [place] [address] breakfast. [facility] Branch glimepiride 2021-0 Yes 2mg Take 2 mg U nivers 2 mg tablet 4-08 by mouth ity of 16:21: daily with [place] [address] breakfast. [facility] glimepiride 0 Yes 2mg Take 2 mg U nivers 2 mg tablet 4-08 by mouth ity of 16:21: daily with [place] [address] breakfast. [facility] glimepiride 2021-0 Yes 2mg Take 2 mg U nivers 2 mg tablet 4-08 by mouth ity of 16:21: daily with [place] [address] breakfast. [facility] glimepiride 0 Yes 2mg Take 2 mg U nivers 2 mg tablet 4-08 by mouth ity of 16:21: daily with [place] [address] breakfast. [facility] glimepiride 0 Yes 2mg Take 2 mg U nivers 2 mg tablet 4-08 by mouth ity of 16:21: daily with [place] [address] breakfast. [facility] glimepiride 2021-0 Yes 2mg Take 2 mg U nivers 2 mg tablet 4-08 by mouth ity of 16:21: daily with [place] [address] breakfast. [facility] spironolact 2021-0 Yes [id number] 12.5mg Take 0.5 [facility] one 25 mg 4-08 tablets by ity of tablet 00:00: mouth [place] 00 daily. [facility] Branch bumetanide 2021-0 Yes [id number] 1mg Take 1 [facility] 1 mg tablet 4-08 tablet by ity of 00:00: mouth [place] 00 daily. [facility] empaglifloz 2021-0 Yes [id number] 10mg Take 1 [facility] in 10 mg 4-08 tablet by ity of 00:00: mouth [place] 00 daily. [facility] Branch spironolact 2-0 Yes [id number] 12.5mg Take 0.5 [facility] one 25 mg 4-08 tablets by ity of tablet 00:00: mouth [place] 00 daily. Medical Branch empaglifloz 2-0 Yes [id number] 10mg Take 1 [facility] in 10 mg 4-08 tablet by ity of 00:00: mouth [place] 00 daily. Medical Branch spironolact 2-0 Yes [id number] 12.5mg Take 0.5 [facility] one 25 mg 4-08 tablets by ity of tablet 00:00: mouth [place] 00 daily. Medical Branch empaglifloz 2-0 Yes [id number] 10mg Take 1 [facility] in 10 mg 4-08 tablet by ity of 00:00: mouth [place] 00 daily. [facility] Branch spironolact 2021-0 Yes [id number] 12.5mg Take 0.5 [facility] one 25 mg 4-08 tablets by ity of tablet 00:00: mouth [place] 00 daily. Medical Branch empaglifloz 2-0 Yes [id number] 10mg Take 1 [facility] in 10 mg 4-08 tablet by ity of 00:00: mouth [place] 00 daily. [facility] Branch spironolact 2021-0 Yes [id number] 12.5mg Take 0.5 [facility] one 25 mg 4-08 tablets by ity of tablet 00:00: mouth [place] 00 daily. [facility] Branch empaglifloz 2-0 Yes [id number] 10mg Take 1 [facility] in 10 mg 4-08 tablet by ity of 00:00: mouth [place] 00 daily. Medical Branch spironolact 2-0 Yes [id number] 12.5mg Take 0.5 [facility] one 25 mg 4-08 tablets by ity of tablet 00:00: mouth [place] 00 daily. Medical Branch empaglifloz 2-0 Yes [id number] 10mg Take 1 [facility] in 10 mg 4-08 tablet by ity of 00:00: mouth [place] 00 daily. [facility] Branch spironolact 2-0 Yes [id number] 12.5mg Take 0.5 [facility] one 25 mg 4-08 tablets by ity of tablet 00:00: mouth [place] 00 daily. [facility] Branch empaglifloz 2-0 Yes [id number] 10mg Take 1 [facility] in 10 mg 4-08 tablet by ity of 00:00: mouth [place] 00 daily. [facility] Branch spironolact 2-0 Yes [id number] 12.5mg Take 0.5 [facility] one 25 mg 4-08 tablets by ity of tablet 00:00: mouth [place] 00 daily. Medical Branch empaglifloz 2-0 Yes [id number] 10mg Take 1 [facility] in 10 mg 4-08 tablet by ity of 00:00: mouth [place] 00 daily. [facility] Branch spironolact 2-0 Yes [id number] 12.5mg Take 0.5 [facility] one 25 mg 4-08 tablets by ity of tablet 00:00: mouth [place] 00 daily. [facility] Branch empaglifloz 2-0 Yes [id number] 10mg Take 1 [facility] in 10 mg 4-08 tablet by ity of 00:00: mouth [place] 00 daily. [facility] Branch spironolact 2021-0 Yes [id number] 12.5mg Take 0.5 [facility] one 25 mg 4-08 tablets by ity of tablet 00:00: mouth [place] 00 daily. [facility] Branch empaglifloz 2-0 Yes [id number] 10mg Take 1 [facility] in 10 mg 4-08 tablet by ity of 00:00: mouth [place] 00 daily. [facility] Branch spironolact 2021-0 Yes [id number] 12.5mg Take 0.5 [facility] one 25 mg 4-08 tablets by ity of tablet 00:00: mouth [place] 00 daily. [facility] Branch empaglifloz 2-0 Yes [id number] 10mg Take 1 [facility] in 10 mg 4-08 tablet by ity of 00:00: mouth [place] 00 daily. [facility] Branch spironolact 2-0 Yes [id number] 12.5mg Take 0.5 [facility] one 25 mg 4-08 tablets by ity of tablet 00:00: mouth [place] 00 daily. Medical Branch empaglifloz 2-0 Yes [id number] 10mg Take 1 [facility] in 10 mg 4-08 tablet by ity of 00:00: mouth [place] 00 daily. [facility] Branch spironolact 2-0 Yes [id number] 12.5mg Take 0.5 [facility] one 25 mg 4-08 tablets by ity of tablet 00:00: mouth [place] 00 daily. [facility] Branch empaglifloz 2-0 Yes [id number] 10mg Take 1 [facility] in 10 mg 4-08 tablet by ity of 00:00: mouth [place] 00 daily. [facility] Branch spironolact 2-0 Yes [id number] 12.5mg Take 0.5 [facility] one 25 mg 4-08 tablets by ity of tablet 00:00: mouth [place] 00 daily. [facility] Branch empaglifloz 2021-0 Yes [id number] 10mg Take 1 [facility] in 10 mg 4-08 tablet by ity of 00:00: mouth [place] 00 daily. [facility] Branch spironolact 2-0 Yes [id number] 12.5mg Take 0.5 [facility] one 25 mg 4-08 tablets by ity of tablet 00:00: mouth [place] 00 daily. [facility] Branch empaglifloz 2-0 Yes [id number] 10mg Take 1 [facility] in 10 mg 4-08 tablet by ity of 00:00: mouth [place] 00 daily. [facility] Branch spironolact 2021-0 Yes [id number] 12.5mg Take 0.5 [facility] one 25 mg 4-08 tablets by ity of tablet 00:00: mouth [place] 00 daily. [facility] Branch empaglifloz 2021-0 Yes [id number] 10mg Take 1 [facility] in 10 mg 4-08 tablet by ity of 00:00: mouth [place] 00 daily. [facility] Branch spironolact 2021-0 Yes [id number] 12.5mg Take 0.5 [facility] one 25 mg 4-08 tablets by ity of tablet 00:00: mouth [place] 00 daily. [facility] Branch empaglifloz 2-0 Yes [id number] 10mg Take 1 [facility] in 10 mg 4-08 tablet by ity of 00:00: mouth [place] 00 daily. [facility] Branch spironolact 2-0 Yes [id number] 12.5mg Take 0.5 [facility] one 25 mg 4-08 tablets by ity of tablet 00:00: mouth [place] 00 daily. [facility] Branch empaglifloz 2-0 Yes [id number] 10mg Take 1 [facility] in 10 mg 4-08 tablet by ity of 00:00: mouth [place] 00 daily. [facility] Branch spironolact 2-0 Yes [id number] 12.5mg Take 0.5 [facility] one 25 mg 4-08 tablets by ity of tablet 00:00: mouth [place] 00 daily. [facility] Branch empaglifloz 2022-0 Yes [id number] 10mg Take 1 [facility] in 10 mg 4-08 tablet by ity of 00:00: mouth [place] 00 daily. Medical Branch spironolact 2021-0 Yes [id number] 12.5mg Take 0.5 [facility] one 25 mg 4-08 tablets by ity of tablet 00:00: mouth [place] 00 daily. [facility] empaglifloz 2021-0 Yes [id number] 10mg Take 1 [facility] in 10 mg 4-08 tablet by ity of 00:00: mouth [place] 00 daily. [facility] spironolact 2021-0 Yes [id number] 12.5mg Take 0.5 [facility] one 25 mg 4-08 tablets by ity of tablet 00:00: mouth [place] 00 daily. [facility] empaglifloz 2021-0 Yes [id number] 10mg Take 1 [facility] in 10 mg 4-08 tablet by ity of 00:00: mouth [place] 00 daily. [facility] spironolact 2021-0 Yes [id number] 12.5mg Take 0.5 [facility] one 25 mg 4-08 tablets by ity of tablet 00:00: mouth [place] 00 daily. [facility] empaglifloz 2021-0 Yes [id number] 10mg Take 1 [facility] in 10 mg 4-08 tablet by ity of 00:00: mouth [place] 00 daily. [facility] spironolact 2021-0 Yes [id number] 12.5mg Take 0.5 [facility] one 25 mg 4-08 tablets by ity of tablet 00:00: mouth [place] 00 daily. [facility] empaglifloz 2021-0 Yes [id number] 10mg Take 1 [facility] in 10 mg 4-08 tablet by ity of 00:00: mouth [place] 00 daily. [facility] spironolact 2021-0 Yes [id number] 12.5mg Take 0.5 [facility] one 25 mg 4-08 tablets by ity of tablet 00:00: mouth [place] 00 daily. [facility] empaglifloz 2-0 Yes [id number] 10mg Take 1 [facility] in 10 mg 4-08 tablet by ity of 00:00: mouth [place] 00 daily. [facility] spironolact 2-0 Yes [id number] 12.5mg Take 0.5 [facility] one 25 mg 4-08 tablets by ity of tablet 00:00: mouth [place] 00 daily. [facility] empaglifloz 2-0 Yes [id number] 10mg Take 1 [facility] in 10 mg 4-08 tablet by ity of 00:00: mouth [place] 00 daily. [facility] spironolact 2-0 Yes [id number] 12.5mg Take 0.5 [facility] one 25 mg 4-08 tablets by ity of tablet 00:00: mouth [place] 00 daily. [facility] empaglifloz 2-0 Yes [id number] 10mg Take 1 [facility] in 10 mg 4-08 tablet by ity of 00:00: mouth [place] 00 daily. [facility] spironolact 2-0 Yes [id number] 12.5mg Take 0.5 [facility] one 25 mg 4-08 tablets by ity of tablet 00:00: mouth [place] 00 daily. [facility] empaglifloz 2021-0 Yes [id number] 10mg Take 1 [facility] in 10 mg 4-08 tablet by ity of 00:00: mouth [place] 00 daily. [facility] spironolact 2021-0 Yes [id number] 12.5mg Take 0.5 [facility] one 25 mg 4-08 tablets by ity of tablet 00:00: mouth [place] 00 daily. [facility] empaglifloz 2021-0 Yes [id number] 10mg Take 1 [facility] in 10 mg 4-08 tablet by ity of 00:00: mouth [place] 00 daily. [facility] spironolact 2021-0 Yes [id number] 12.5mg Take 0.5 [facility] one 25 mg 4-08 tablets by ity of tablet 00:00: mouth [place] 00 daily. [facility] empaglifloz 2-0 Yes [id number] 10mg Take 1 [facility] in 10 mg 4-08 tablet by ity of 00:00: mouth [place] 00 daily. [facility] spironolact 2-0 Yes [id number] 12.5mg Take 0.5 [facility] one 25 mg 4-08 tablets by ity of tablet 00:00: mouth [place] 00 daily. [facility] empaglifloz 2-0 Yes [id number] 10mg Take 1 [facility] in 10 mg 4-08 tablet by ity of 00:00: mouth [place] 00 daily. [facility] spironolact 2-0 Yes [id number] 12.5mg Take 0.5 [facility] one 25 mg 4-08 tablets by ity of tablet 00:00: mouth [place] 00 daily. [facility] empaglifloz 2021-0 Yes [id number] 10mg Take 1 [facility] in 10 mg 4-08 tablet by ity of 00:00: mouth [place] 00 daily. [facility] spironolact 0 Yes [id number] 12.5mg Take 0.5 [facility] one 25 mg 4-08 tablets by ity of tablet 00:00: mouth [place] 00 daily. [facility] empaglifloz 2021-0 Yes [id number] 10mg Take 1 [facility] in 10 mg 4-08 tablet by ity of 00:00: mouth [place] 00 daily. [facility] empaglifloz 0 Yes [id number] 10mg Take 1 [facility] in 10 mg 4-08 tablet by ity of 00:00: mouth [place] 00 daily. [facility] empaglifloz 0 Yes [id number] 10mg Take 1 [facility] in 10 mg 4-08 tablet by ity of 00:00: mouth [place] 00 daily. [facility] empaglifloz 0 2022- No [id number] 10mg Take 1 [facility] in 10 mg -12 20-03 tablet by ity o f 00:00: 00:00 mouth [place] 00 :00 daily. [facility] empaglifloz 2021-0 2022- No [id number] 10mg Take 1 [facility] in 10 mg -12 20-03 tablet by ity o f 00:00: 00:00 mouth [place] 00 :00 daily. [facility] empaglifloz 2021-0 3- No [id number] 10mg Take 1 [facility] in 10 mg -12 20-03 tablet by ity o f 00:00: 00:00 mouth [place] 00 :00 daily. [facility] spironolact 2021-0 3- No [id number] 12.5mg Take 0.5 [facility] one 25 mg 08-24- tablets by ity of tablet 00:00: 00:00 mouth [place] 00 :00 daily. [facility] bumetanide 2021-0 2- No [id number] 1mg Take 1 [facility] 1 mg tablet 08-24 tablet by it y of 00:00: 00:00 [...] by ity of tablet 14:05: mouth 2 [place] 56 (two) Medical times Branch daily with meals. NOEL 2021-0 Yes Take by Univers ASPIRIN 2-01 mouth. ity of ORAL 14:05: [place] [address] Medical Branch metformin 2021-0 Yes 500mg Take [...] by ity of tablet 14:05: mouth 2 [place] 56 (two) Medical times Branch daily with meals. NOEL 2021-0 Yes Take by Univers ASPIRIN 2-01 mouth. ity of ORAL 14:05: [place] [address] Medical Branch metformin 2021-0 Yes 500mg Take [...] by ity of tablet 14:05: mouth 2 [place] 56 (two) Medical times Branch daily with meals. NOEL 2-0 Yes Take by [facility] ASPIRIN 2-01 mouth. ity of ORAL 14:05: [place] [address] Medical Branch metformin 2021-0 Yes 500mg Take [...] ASPIRIN 2-01 mouth. ity of ORAL 14:05: [place] [address] Medical Branch metformin 2021-0 Yes 500mg Take [...] by ity of tablet 14:05: mouth 2 [place] 56 (two) Medical times Branch daily with meals. NOEL 2021-0 Yes Take by [facility] ASPIRIN 2-01 mouth. ity of ORAL 14:05: [place] [address] Medical Branch metformin 2021-0 Yes 500mg Take [...] by ity of tablet 14:05: mouth 2 [place] 56 (two) Medical times Branch daily with meals. NOEL 2021-0 Yes Take by Univers ASPIRIN 2-01 mouth. ity of ORAL 14:05: [place] [address] Medical Branch metformin 2021-0 Yes 500mg Take [...] by ity of tablet 14:05: mouth 2 [place] 56 (two) Medical times Branch daily with meals. NOEL 2021-0 Yes Take by Univers ASPIRIN 2-01 mouth. ity of ORAL 14:05: [place] [address] Medical Branch metformin 2021-0 Yes 500mg Take [...] by ity of tablet 14:05: mouth 2 [place] 56 (two) Medical times Branch daily with meals. NOEL 2021-0 Yes Take by Univers ASPIRIN 2-01 mouth. ity of ORAL 14:05: [place] [address] Medical Branch metformin 2021-0 Yes 500mg Take [...] by ity of tablet 14:05: mouth 2 [place] 56 (two) Medical times Branch daily with meals. NOEL 2021-0 Yes Take by [facility] ASPIRIN 2-01 mouth. ity of ORAL 14:05: [place] [address] Medical Branch metformin 2021-0 Yes 500mg Take [...] by ity of tablet 14:05: mouth 2 [place] 56 (two) Medical times Branch daily with meals. NOEL 2021-0 Yes Take by [facility] ASPIRIN 2-01 mouth. ity of ORAL 14:05: [place] [address] Medical Branch metformin 2021-0 Yes 500mg Take 500 Uni vers HCl 2-01 mg by ity of (METFORMIN 14:05: [place] (two) Medical times Branch daily with meals. sacubitriL- 2021-0 Yes 1{tbl} Take 1 Un winter valsartan 2-01 tablet by ity o f 49-51 mg 14:05: mouth 2 [place] tablet 56 (two) Medical times Branch daily. metformin 2021-0 Yes 500mg Take 500 Uni [...] 56 (two) Medical times Branch daily. metformin 0 Yes 500mg Take 500 Uni [...] [Zanaflex] 00 30 tab, 3 Refill(s), Pharmacy: [facility], 154.94, cm, 03/22/21 13:32:00 CDT, Height, 119.545, kg, 03/22/21 13:32:00 CDT, Weight tizanidine 2020-05 Yes 4 mg = 1 Mem oria 4 MG Oral 1-04 tab, PO, l Tablet 18:45: Bedtime, # [place] nn [Zanaflex] 00 30 tab, 3 Refill(s), Pharmacy: [facility], 154.94, cm, 03/22/21 13:32:00 CDT, Height, 119.545, kg, 03/22/21 13:32:00 CDT, Weight tizanidine 2020-05 Yes 4 mg = 1 Mem oria 4 MG Oral 1-04 tab, PO, l Tablet 18:45: Bedtime, # [place] nn [Zanaflex] 00 30 tab, 3 Refill(s), Pharmacy: [facility], 154.94, cm, 03/22/21 13:32:00 CDT, Height, 119.545, kg, 03/22/21 13:32:00 CDT, Weight tizanidine 2020-05 Yes 4 mg = 1 Mem oria 4 MG Oral 1-04 tab, PO, l Tablet 18:45: Bedtime, # [place] nn [Zanaflex] 00 30 tab, 3 Refill(s), Pharmacy: [facility], 154.94, cm, 03/22/21 13:32:00 CDT, Height, 119.545, kg, 03/22/21 13:32:00 CDT, Weight tizanidine 2020- Yes 4 mg = 1 Mem oria 4 MG Oral 1-04 tab, PO, l Tablet 18:45: Bedtime, # [place] nn [Zanaflex] 00 30 tab, 3 Refill(s), Pharmacy: [facility], 154.94, cm, 03/22/21 13:32:00 CDT, Height, 119.545, kg, 03/22/21 13:32:00 CDT, Weight tizanidine 2020- Yes 4 mg = 1 Mem oria 4 MG Oral 1-04 tab, PO, l Tablet 18:45: Bedtime, # [place] nn [Zanaflex] 00 30 tab, 3 Refill(s), Pharmacy: [facility], 154.94, cm, 03/22/21 13:32:00 CDT, Height, 119.545, kg, 03/22/21 13:32:00 CDT, Weight tizanidine 2020-05 Yes 4 mg = 1 Mem oria 4 MG Oral 1-04 tab, PO, l Tablet 18:45: Bedtime, # [place] nn [Zanaflex] 00 30 tab, 3 Refill(s), Pharmacy: [facility]08, 154.94, cm, 03/22/21 13:32:00 CDT, Height, 119.545, kg, 03/22/21 13:32:00 CDT, Weight tizanidine 2020- Yes 4 mg = 1 Mem oria 4 MG Oral 1-04 tab, PO, l Tablet 18:45: Bedtime, # [place] nn [Zanaflex] 00 30 tab, 3 Refill(s), Pharmacy: [facility], 154.94, cm, 03/22/21 13:32:00 CDT, Height, 119.545, kg, 03/22/21 13:32:00 CDT, Weight tizanidine 2020- Yes 4 mg = 1 Mem oria 4 MG Oral 1-04 tab, PO, l Tablet 18:45: Bedtime, # [place] nn [Zanaflex] 00 30 tab, 3 Refill(s), Pharmacy: [facility], 154.94, cm, 03/22/21 13:32:00 CDT, Height, 119.545, kg, 03/22/21 13:32:00 CDT, Weight tizanidine 2020-05 Yes 4 mg = 1 Mem oria 4 MG Oral 1-04 tab, PO, l Tablet 18:45: Bedtime, # [place] nn [Zanaflex] 00 30 tab, 3 Refill(s), Pharmacy: [facility]08, 154.94, cm, 03/22/21 13:32:00 CDT, Height, 119.545, kg, 03/22/21 13:32:00 CDT, Weight tizanidine 2020-05 Yes 4 mg = 1 Mem oria 4 MG Oral 1-04 tab, PO, l Tablet 18:45: Bedtime, # [place] nn [Zanaflex] 00 30 tab, 3 Refill(s), Pharmacy: [facility], 154.94, cm, 03/22/21 13:32:00 CDT, Height, 119.545, kg, 03/22/21 13:32:00 CDT, Weight tizanidine 2020- Yes 4 mg = 1 Mem oria 4 MG Oral 1-04 tab, PO, l Tablet 18:45: Bedtime, # [place] nn [Zanaflex] 00 30 tab, 3 Refill(s), Pharmacy: [facility], 154.94, cm, 03/22/21 13:32:00 CDT, Height, 119.545, kg, 03/22/21 13:32:00 CDT, Weight tizanidine 2020- Yes 4 mg = 1 Mem oria 4 MG Oral 1-04 tab, PO, l Tablet 18:45: Bedtime, # [place] nn [Zanaflex] 00 30 tab, 3 Refill(s), Pharmacy: [facility]08, 154.94, cm, 03/22/21 13:32:00 CDT, Height, 119.545, kg, 03/22/21 13:32:00 CDT, Weight tizanidine 2020-05 Yes 4 mg = 1 Mem oria 4 MG Oral 1-04 tab, PO, l Tablet 18:45: Bedtime, # [place] nn [Zanaflex] 00 30 tab, 3 Refill(s), Pharmacy: [facility], 154.94, cm, 03/22/21 13:32:00 CDT, Height, 119.545, kg, 03/22/21 13:32:00 CDT, Weight tizanidine 2020-05 Yes 4 mg = 1 Mem oria 4 MG Oral 1-04 tab, PO, l Tablet 18:45: Bedtime, # [place] nn [Zanaflex] 00 30 tab, 3 Refill(s), Pharmacy: [facility], 154.94, cm, 03/22/21 13:32:00 CDT, Height, 119.545, kg, 03/22/21 13:32:00 CDT, Weight tizanidine 2020-05 Yes 4 mg = 1 Mem oria 4 MG Oral 1-04 tab, PO, l Tablet 18:45: Bedtime, # [place] nn [Zanaflex] 00 30 tab, 3 Refill(s), Pharmacy: [facility], 154.94, cm, 03/22/21 13:32:00 CDT, Height, 119.545, kg, 03/22/21 13:32:00 CDT, Weight tizanidine 2020-05 Yes 4 mg = 1 Mem oria 4 MG Oral 1-04 tab, PO, l Tablet 18:45: Bedtime, # [place] nn [Zanaflex] 00 30 tab, 3 Refill(s), Pharmacy: [facility], 154.94, cm, 03/22/21 13:32:00 CDT, Height, 119.545, kg, 03/22/21 13:32:00 CDT, Weight Aspirin 2020-05 Yes 0 Memoria 0-06 Refill(s) l 19:55: [place] Aspirin 2020-05 Yes 0 Memoria 0-06 Refill(s) l 19:55: [place] Aspirin 2020-05 Yes 0 Memoria 0-06 Refill(s) l 19:55: [place] Aspirin 2020-05 Yes 0 Memoria 0-06 Refill(s) l 19:55: [place] 00 Aspirin 2020-05 Yes 0 Memoria 0-06 Refill(s) l 19:55: [place] 00 Aspirin 2020-05 Yes 0 Memoria 0-06 Refill(s) l 19:55: [place] 00 Aspirin 2020-05 Yes 0 Memoria 0-06 Refill(s) l 19:55: [place] 00 Aspirin 2020-05 Yes 0 Memoria 0-06 Refill(s) l 19:55: [place] 00 Aspirin 2020-05 Yes 0 Memoria 0-06 Refill(s) l 19:55: [place] 00 Aspirin 2020-05 Yes 0 Memoria 0-06 Refill(s) l 19:55: [place] 00 Aspirin 2020-05 Yes 0 Memoria 0-06 Refill(s) l 19:55: [place] 00 Aspirin 2020-05 Yes 0 Memoria 0-06 Refill(s) l 19:55: [place] 00 Aspirin 2020-05 Yes 0 Memoria 0-06 Refill(s) l 19:55: [place] 00 Aspirin 2020-05 Yes 0 Memoria 0-06 Refill(s) l 19:55: [place] 00 Aspirin 2020-05 Yes 0 Memoria 0-06 Refill(s) l 19:55: [place] 00 Aspirin 2020-05 Yes 0 Memoria 0-06 Refill(s) l 19:55: [place] 00 Aspirin 2020-05 Yes 0 Memoria 0-06 Refill(s) l 19:55: [place] 00 Potassium 2020-05 Yes 0 Memoria Chloride 0-06 Refill(s) l (Eqv-Sascha-C 19:54: [place] n on M20) 20 00 mEq oral tablet, extended release METFORMIN 2020-05 Yes METFORMIN Mem oria HYDROCHLORI 0-06 HYDROCHLOR l [place] 500 MG 19:54: FABIEN 500 MG [place] TABS 00 TABS, Refill(s) 0 carvedilol 2020-05 Yes 6.25 mg = Me moria 6.25 mg 0-06 1 tab, PO, l oral tablet 19:54: Q12H, # 60 [place] 00 tab, 0 Refill(s) Potassium 2020-05 Yes [...] l oral tablet 19:54: Q12H, # 60 [place] 00 tab, 0 Refill(s) METFORMIN 2020-05 Yes METFORMIN Mem oria HYDROCHLORI 0-06 HYDROCHLOR l DE 500 MG 19:54: FABIEN 500 MG [place] TABS 00 TABS, Refill(s) 0 carvedilol 2020-05 Yes 6.25 mg = Me moria 6.25 mg 0-06 1 tab, PO, l oral tablet 19:54: Q12H, # 60 [place] 00 tab, 0 Refill(s) Potassium 2020-05 Yes [...] l oral tablet 19:54: Q12H, # 60 [place] 00 tab, 0 Refill(s) Potassium 2020-05 Yes [...] l oral tablet 19:54: Q12H, # 60 [place] 00 tab, 0 Refill(s) Potassium 2020-05 Yes [...] l oral tablet 19:54: Q12H, # 60 [place] 00 tab, 0 Refill(s) Potassium 2020-05 Yes 0 Memoria Chloride 0-06 Refill(s) l ([employer]-Klor-C 19:54: [place] n on M20) 20 00 mEq oral tablet, extended release METFORMIN 2020-05 Yes METFORMIN Mem oria HYDROCHLORI 0-06 HYDROCHLOR l DE 500 MG 19:54: FABIEN 500 MG [place] TABS 00 TABS, Refill(s) 0 carvedilol 2020-05 Yes 6.25 mg = Me moria 6.25 mg 0-06 1 tab, PO, l oral tablet 19:54: Q12H, # 60 [place] 00 tab, 0 Refill(s) Potassium 2020-05 Yes 0 Memoria Chloride 0-06 Refill(s) l ([employer]-Klor-C 19:54: [place] n on M20) 20 00 mEq oral tablet, extended release METFORMIN 2020-05 Yes METFORMIN Mem oria HYDROCHLORI 0-06 HYDROCHLOR l DE 500 MG 19:54: FABIEN 500 MG [place] TABS 00 TABS, Refill(s) 0 carvedilol 2020-05 Yes 6.25 mg = Me moria 6.25 mg 0-06 1 tab, PO, l oral tablet 19:54: Q12H, # 60 [place] 00 tab, 0 Refill(s) Potassium 2020-05 Yes [...] l oral tablet 19:54: Q12H, # 60 [place] 00 tab, 0 Refill(s) Potassium 2020-05 Yes 0 Memoria Chloride 0-06 Refill(s) l (Eq-Klor-C 19:54: [place] n on M20) 20 00 mEq oral tablet, extended release METFORMIN 2020-05 Yes METFORMIN Mem oria HYDROCHLORI 0-06 HYDROCHLOR l DE 500 MG 19:54: FABIEN 500 MG [place] TABS 00 TABS, Refill(s) 0 carvedilol 2020-05 Yes 6.25 mg = Me moria 6.25 mg 0-06 1 tab, PO, l oral tablet 19:54: Q12H, # 60 [place] 00 tab, 0 Refill(s) Potassium 2020-05 Yes 0 Memoria Chloride 0-06 Refill(s) l ([employer]-C 19:54: [place] n on M20) 20 00 mEq oral tablet, extended release METFORMIN 2020-05 Yes METFORMIN Mem oria HYDROCHLORI 0-06 HYDROCHLOR l DE 500 MG 19:54: FABIEN 500 MG [place] TABS 00 TABS, Refill(s) 0 carvedilol 2020-05 Yes 6.25 mg = Me moria 6.25 mg 0-06 1 tab, PO, l oral tablet 19:54: Q12H, # 60 [place] 00 tab, 0 Refill(s) Potassium 2020-05 Yes 0 Memoria Chloride 0-06 Refill(s) l ([employer]-Klor-C 19:54: [place] n on M20) 20 00 mEq oral tablet, extended release METFORMIN 2020-05 Yes METFORMIN Mem oria HYDROCHLORI 0-06 HYDROCHLOR l DE 500 MG 19:54: FABIEN 500 MG [place] TABS 00 TABS, Refill(s) 0 carvedilol 2020-05 Yes 6.25 mg = Me moria 6.25 mg 0-06 1 tab, PO, l oral tablet 19:54: Q12H, # 60 [place] 00 tab, 0 Refill(s) Potassium 2020-05 Yes [...] l oral tablet 19:54: Q12H, # 60 [place] 00 tab, 0 Refill(s) Potassium 2020-05 Yes [...] l oral tablet 19:54: Q12H, # 60 [place] 00 tab, 0 Refill(s) Potassium 2020-05 Yes [...] l oral tablet 19:54: Q12H, # 60 [place] 00 tab, 0 Refill(s) Potassium 2020-05 Yes [...] l oral tablet 19:54: Q12H, # 60 [place] 00 tab, 0 Refill(s) GLIMEPIRIDE 2020-05 Yes GLIMEPIRID Memoria 2MG TAB 0-06 E 2MG TAB, l 19:53: Refill(s) [place] 00 0 sacubitril 2020-05 Yes 0 Memoria 49 MG / 0-06 Refill(s) l valsartan 19:53: [place] 51 MG Oral 00 Tablet [Entresto] GLIMEPIRIDE 2020-05 Yes GLIMEPIRID Memoria 2MG TAB 0-06 E 2MG TAB, l 19:53: Refill(s) [place] 00 0 sacubitril 2020-05 Yes 0 Memoria 49 MG / 0-06 Refill(s) l valsartan 19:53: [place] 51 MG Oral 00 Tablet [Entresto] GLIMEPIRIDE 2020-05 Yes GLIMEPIRID Memoria 2MG TAB 0-06 E 2MG TAB, l 19:53: Refill(s) [place] 00 0 sacubitril 2020-05 Yes 0 Memoria 49 MG / 0-06 Refill(s) l valsartan 19:53: [place] 51 MG Oral 00 Tablet [Entresto] GLIMEPIRIDE 2020-05 Yes GLIMEPIRID Memoria 2MG TAB 0-06 E 2MG TAB, l 19:53: Refill(s) [place] 00 0 sacubitril 2020-05 Yes 0 Memoria [...] 0-06 E 2MG TAB, l 19:53: Refill(s) [place] 00 0 sacubitril 2020-05 Yes 0 Memoria 49 MG / 0-06 Refill(s) l valsartan 19:53: [place] 51 MG Oral 00 Tablet [Entresto] GLIMEPIRIDE 2020-05 Yes GLIMEPIRID Memoria 2MG TAB 0-06 E 2MG TAB, l 19:53: Refill(s) [place] 00 0 sacubitril 2020-05 Yes 0 Memoria 49 MG / 0-06 Refill(s) l valsartan 19:53: [place] 51 MG Oral 00 Tablet [Entresto] GLIMEPIRIDE 2020-05 Yes GLIMEPIRID Memoria 2MG TAB 0-06 E 2MG TAB, l 19:53: Refill(s) [place] 00 0 sacubitril 2020-05 Yes 0 Memoria 49 MG / 0-06 Refill(s) l valsartan 19:53: [place] 51 MG Oral 00 Tablet [Entresto] GLIMEPIRIDE 2020-05 Yes GLIMEPIRID Memoria 2MG TAB 0-06 E 2MG TAB, l 19:53: Refill(s) [place] 00 0 sacubitril 2020-05 Yes 0 Memoria 49 MG / 0-06 Refill(s) l valsartan 19:53: [place] 51 MG Oral 00 Tablet [Entresto] GLIMEPIRIDE 2020-05 Yes GLIMEPIRID Memoria 2MG TAB 0-06 E 2MG TAB, l 19:53: Refill(s) [place] 00 0 sacubitril 2020-05 Yes 0 Memoria 49 MG / 0-06 Refill(s) l valsartan 19:53: [place] 51 MG Oral 00 Tablet [Entresto] GLIMEPIRIDE 2020-05 Yes GLIMEPIRID Memoria 2MG TAB 0-06 E 2MG TAB, l 19:53: Refill(s) [place] 00 0 sacubitril 2020-05 Yes 0 Memoria 49 MG / 0-06 Refill(s) l valsartan 19:53: [place] 51 MG Oral 00 Tablet [Entresto] GLIMEPIRIDE 2020-05 Yes GLIMEPIRID Memoria 2MG TAB 0-06 E 2MG TAB, l 19:53: Refill(s) [place] 00 0 sacubitril 2020-05 Yes 0 Memoria 49 MG / 0-06 Refill(s) l valsartan 19:53: [place] 51 MG Oral 00 Tablet [Entresto] GLIMEPIRIDE 2020-05 Yes GLIMEPIRID Memoria 2MG TAB 0-06 E 2MG TAB, l 19:53: Refill(s) [place] 00 0 sacubitril 2020-05 Yes 0 Memoria 49 MG / 0-06 Refill(s) l valsartan 19:53: [place] 51 MG Oral 00 Tablet [Entresto] GLIMEPIRIDE 2020-05 Yes GLIMEPIRID Memoria 2MG TAB 0-06 E 2MG TAB, l 19:53: Refill(s) [place] 00 0 sacubitril 2020-05 Yes 0 Memoria 49 MG / 0-06 Refill(s) l valsartan 19:53: [place] 51 MG Oral 00 Tablet [Entresto] GLIMEPIRIDE 2020-05 Yes GLIMEPIRID Memoria 2MG TAB 0-06 E 2MG TAB, l 19:53: Refill(s) [place] 00 0 sacubitril 2020-05 Yes 0 Memoria 49 MG / 0-06 Refill(s) l valsartan 19:53: [place] 51 MG Oral 00 Tablet [Entresto] GLIMEPIRIDE 2020-05 Yes GLIMEPIRID Memoria 2MG TAB 0-06 E 2MG TAB, l 19:53: Refill(s) [place] 00 0 sacubitril 2020-05 Yes 0 Memoria 49 MG / 0-06 Refill(s) l valsartan 19:53: [place] 51 MG Oral 00 Tablet [Entresto] GLIMEPIRIDE 2020-05 Yes GLIMEPIRID Memoria 2MG TAB 0-06 E 2MG TAB, l 19:53: Refill(s) [place] 00 0 sacubitril 2020-05 Yes 0 Memoria 49 MG / 0-06 Refill(s) l valsartan 19:53: [place] 51 MG Oral 00 Tablet [Entresto] Furosemide 2020-05 Yes 40 mg = 1 Me moria 40 MG Oral 0-06 tab, PO, l Tablet 19:52: Daily, # [place] 00 30 tab, 0 Refill(s) Furosemide 2020-05 Yes 40 mg = 1 Me moria 40 MG Oral 0-06 tab, PO, l Tablet 19:52: Daily, # [place] 00 30 tab, 0 Refill(s) Furosemide 2020-05 Yes 40 mg = 1 Me moria 40 MG Oral 0-06 tab, PO, l Tablet 19:52: Daily, # [place] 00 30 tab, 0 Refill(s) Furosemide 2020-05 Yes 40 mg = 1 Me moria 40 MG Oral 0-06 tab, PO, l Tablet 19:52: Daily, # [place] 00 30 tab, 0 Refill(s) Furosemide 2020-05 Yes 40 mg = 1 Me moria 40 MG Oral 0-06 tab, PO, l Tablet 19:52: Daily, # [place] 00 30 tab, 0 Refill(s) Furosemide 2020-05 Yes 40 mg = 1 Me moria 40 MG Oral 0-06 tab, PO, l Tablet 19:52: Daily, # [place] 00 30 tab, 0 Refill(s) Furosemide 2020-05 [...] tab, PO, l Tablet 19:52: Daily, # [place] 00 30 tab, 0 Refill(s) Furosemide 2020-05 Yes 40 mg = 1 Me moria 40 MG Oral 0-06 tab, PO, l Tablet 19:52: Daily, # [place] 00 30 tab, 0 Refill(s) Furosemide 2020-05 [...] tab, PO, l Tablet 19:52: Daily, # [place] 00 30 tab, 0 Refill(s) Furosemide 2020-05 Yes 40 mg = 1 Me moria 40 MG Oral 0-06 tab, PO, l Tablet 19:52: Daily, # [place] 00 30 tab, 0 Refill(s) Furosemide 2020-05 [...] 325 (65 Fe) MG (65 Fe) MG - t} (65 Fe) MG 00:00: 00 Iron 325 Iron 325 0 No 1{table QD Iron 325 (65 Fe) MG (65 Fe) MG - t} (65 Fe) MG 00:00: 00 Iron [...] (65 Fe) MG 00:00: 00 methocarbam methocarbam 0 No 2 Q6H methocarba [place] 500 [...] lancets St formulary [facility] insurance) [place] Blood Blood 2018-05 Yes Kilo as Common [...] Glucose 2-03 Glucose Monitor Monitor 00:00: Monitor Lancets - Lancets 2018-05 No Lancets - 2-03 00:00: 00 Blood Blood 2018-05 No Blood Glucose Glucose 2-03 Glucose Test Strip Test Strip 00:00: Test Strip Blood Blood 2018-05 No Blood Glucose Glucose 2-03 Glucose Monitor Monitor 00:00: Monitor 00 Lancets - Lancets 2018-05 No Lancets - 2-03 00:00: 00 albuterol 2016-0 Yes 2.5mg Inhale 3 Uni [...] every 4 ity of mL (0.083 00:00: ([facility]) [place] %) 00 hours. May Medical nebulizer also Branch solution nebulize one extra every 6 hours. albuterol 2017-0 Yes 2.5mg Inhale 3 Uni vers 2.5 mg /3 3-22 mL every 4 ity of mL (0.083 00:00: ([facility]) [place] %) 00 hours. May Medical nebulizer also Branch solution nebulize one extra every 6 hours. albuterol 2017-0 Yes 2.5mg Inhale 3 Uni vers 2.5 mg /3 3-22 mL every 4 ity of mL (0.083 00:00: ([facility]) [place] %) 00 hours. May Medical nebulizer also Branch solution nebulize one extra every 6 hours. albuterol 2017-0 Yes 2.5mg Inhale 3 Uni vers 2.5 mg /3 3-22 mL every 4 ity of mL (0.083 00:00: ([facility]) [place] %) 00 hours. May Medical nebulizer also Branch solution nebulize one extra every 6 hours. albuterol 2017-0 Yes 2.5mg Inhale 3 Uni vers 2.5 mg /3 3-22 mL every 4 ity of mL (0.083 00:00: ([facility]) [place] %) 00 hours. May Medical nebulizer also Branch solution nebulize one extra every 6 hours. albuterol 2017-0 Yes 2.5mg Inhale 3 Uni vers 2.5 mg /3 3-22 mL every 4 ity of mL (0.083 00:00: ([facility]) [place] %) 00 hours. May Medical nebulizer also Branch solution nebulize one extra every 6 hours. albuterol 2017-0 Yes 2.5mg Inhale 3 Uni vers 2.5 mg /3 3-22 mL every 4 ity of mL (0.083 00:00: ([facility]) [place] %) 00 hours. May Medical nebulizer [...] solution nebulize one extra every 6 hours. Spironolact Spironolact No 1{table Spironolac one 25 [...] Glimepiride Yes Kilo 1 tablet Common [facility] Noel Noel Yes Kilo 1 tablet Common Aspirin EC Aspirin EC [facility] Sp loren Low Dose Low Dose [facility] Lisinopril Lisinopril Yes Kilo 1 tablet Common [facility] Furosemide Furosemide Yes Kilo 1 tablet Common Hernandez in am [facility] Coreg Coreg Yes Kilo 1 tablet Common [facility] Metformin Metformin Yes Kilo 1 tablet Common HCl HCl Hernandez with meals [facility] Entresto Entresto Yes Kilo 1 tablet C ommon 49/51mg 49/51mg [facility] metFORMIN metFORMIN No metFORMIN HCl 500 MG [...] 1 MG 1 MG t} 1 MG carvedilol carvedilol No carvedilol [place] 6.25 mg 6.25 mg 6.25 mg da tablet TAKE tablet TAKE tablet Medical 1 TABLET BY 1 TABLET BY TAKE 1 Group MOUTH TWICE MOUTH TWICE TABLET BY DAILY DAILY MOUTH TWICE DAILY Carvedilol Carvedilol No Carvedilol 6.25 MG 6.25 [...] Furosemide 40 MG 40 MG 40 MG clindamycin clindamycin No clindamyci [place] HCl 150 mg HCl 150 mg n HCl 150 da capsule capsule mg capsule Med ical TAKE FOUR TAKE FOUR TAKE FOUR Group CAPSULES BY CAPSULES BY CAPSULES MOUTH 30 60 MOUTH 30 60 BY MOUTH MINUTES MINUTES 30 60 PRIOR TO PRIOR TO MINUTES DENTAL DENTAL PRIOR TO APPOINTMENT APPOINTMENT DENTAL APPOINTMEN T metFORMIN metFORMIN No metFORMIN HCl 500 MG [...] Arleen ER 20 MEQ MEQ MEQ Entresto 49 Entresto 49 No Entresto [place] [...] MG HCl 500 MG HCl 500 MG furosemide furosemide No furosemide [place] 40 mg 40 mg 40 mg da tablet TAKE tablet TAKE tablet Medical 1 TABLET BY 1 TABLET BY TAKE 1 Group MOUTH EVERY MOUTH EVERY TABLET BY 48 HOURS 48 HOURS MOUTH EVERY 48 HOURS Entresto Entresto No 1{table Entresto 49/51mg 49/51mg [...] 20 Arleen ER 20 MEQ MEQ MEQ glimepiride glimepiride No glimepirid [place] 2 mg [...] 49/51mg 49/51mg t} 49/51mg 49/51mg 49/51mg 49/51mg ipratropium ipratropium No ipratropiu [place] bromide 21 bromide 21 m bromide da mcg (0.03 mcg (0.03 21 mcg Med ical %) nasal %) nasal (0.03 %) Adela up spray USE 2 spray USE 2 nasal SPRAY(S) IN SPRAY(S) IN spray USE EACH EACH 2 SPRAY(S) NOSTRIL NOSTRIL IN EACH TWICE DAILY TWICE DAILY NOSTRIL TWICE DAILY Glimepiride Glimepiride No 1{table QD Glimepirid [...] MG HCl 500 MG HCl 500 MG iron 65 mg iron 65 mg No iron 65 mg [place] tablet Take tablet Take tablet da by oral by oral Take by Medica l route. route. oral Group route. Noel Noel No 1{table QD Noel [...] MG 2 MG t} e 2 MG levofloxaci levofloxaci No levofloxac [...] 81 Low Dose MG MG 81 MG meclizine meclizine No meclizine [place] 25 mg 25 mg 25 mg da tablet TAKE tablet TAKE tablet Medical 1 TABLET BY 1 TABLET BY TAKE 1 Group MOUTH THREE MOUTH THREE TABLET BY TIMES DAILY TIMES DAILY MOUTH THREE TIMES DAILY traMADol traMADol No traMADol HCl 50 MG [...] for 30 days. 30 days. 30 days. Coreg 6.25 Coreg 6.25 No 1{table BID [...] Strip Test Strip Test Strip Medical Group Coreg 6.25 Coreg 6.25 No [...] 12.5 MG t_as_ne HCl 12.5 eded} MG potassium potassium No potassium [place] chloride ER chloride ER chloride da 20 mEq 20 mEq ER 20 mEq Medica l tablet,exte tablet,exte tablet,ext Group nded nded ended release(par release(par release(pa t/cryst) t/cryst) rt/cryst) Take 1 Take 1 Take 1 tablet tablet tablet every day every day every day by oral by oral by oral route. route. route. Coreg 6.25 Coreg 6.25 No 1{table [...] MG HCl 50 MG HCl 50 MG tramadol 50 tramadol 50 No tramadol [place] mg tablet mg tablet 50 mg da TAKE 1 TAKE 1 tablet Medical TABLET BY TABLET BY TAKE 1 Adela up MOUTH EVERY MOUTH EVERY TABLET BY 8 HOURS 8 HOURS MOUTH NEEDED NEEDED EVERY 8 HOURS NEEDED Klor-Con 10 Klor-Con 10 No 1{table QD [...] Furosemide 40 MG 40 MG 40 MG accu-chek accu-chek No accu-chek [place] guide guide guide da w/device w/device w/device Med ical kit kit kit Group Meclizine Meclizine No 1{table TID Meclizine HCl [...] 81 Low Dose MG MG 81 MG albuterol albuterol No albuterol [place] sulfate [...] 49/51mg 49/51mg t} 49/51mg 49/51mg 49/51mg 49/51mg aspirin 81 aspirin 81 No 1 Q1D aspirin 81 [place] mg tablet mg tablet mg tablet da Take 1 Take 1 Take 1 Medical tablet tablet tablet Group every day every day every day by oral by oral by oral route. route. route. metFORMIN metFORMIN No metFORMIN HCl 500 MG [...] 12.5 MG t_as_ne HCl 12.5 eded} MG Breo Breo No Breo [place] Ellipta [...] 10 MG 10 MG t} 10 MG Klor-Con 10 Klor-Con 10 2020- No Kilo 1 tablet [facility] 05-23 [facility] 00:00 - [facility] :00 [facility] Immunizations Ordered Filled Immunization Date Status Comments Sourc e Immunization Name Name Influenza Virus 2022-04-24 Completed [facility]ine [facility] 00:00:00 [facility], Preserv and ABX Branc h Free 18-64 YRS Influenza Virus 2022-04-24 Completed [facility] Vaccine Recomb Quad 00:00:00 [facility], Preserv and ABX Branc h Free 18-64 YRS Influenza Virus 2022-04-24 Completed [facility] Vaccine Recomb Quad 00:00:00 [facility], Preserv and ABX Branc h Free 18-64 YRS Influenza Virus 2022-04-24 Completed [facility] Vaccine Recomb Quad 00:00:00 [facility], Preserv and ABX Branc h Free 18-64 YRS Influenza Virus 2022-04-24 Completed [facility] Vaccine Recomb Quad 00:00:00 [facility], Preserv and ABX Branc h [...] Completed [facility] Conjugate, PCV20 00:00:00 [facility] dical (Prevnar 20) Branch Pneumococcal 20 2022-01-25 Completed [facility] Conjugate, PCV20 00:00:00 [facility] dical (Prevnar 20) Branch Pneumococcal 20 2022-01-25 Completed [facility] Conjugate, PCV20 00:00:00 [facility] dical (Prevnar 20) Branch Pneumococcal 20 2022-01-25 Completed [facility] Conjugate, PCV20 00:00:00 [facility] dical (Prevnar 20) Branch Pneumococcal 20 2022-01-25 Completed [facility] Conjugate, PCV20 00:00:00 [facility] dical (Prevnar 20) Branch Pneumococcal 20 2022-01-25 Completed [facility] Conjugate, PCV20 00:00:00 [facility] dical (Prevnar 20) Branch Pneumococcal 20 2022-01-25 [...] Completed [facility] Conjugate, PCV20 00:00:00 [facility] (Pre[facility]ar 20) [facility] Pneumococcal 20 2022-01-25 Completed [facility] Conjugate, PCV20 00:00:00 [facility] (Prevnar 20) Branch Pneumococcal 20 2022-01-25 Completed [facility] Conjugate, PCV20 00:00:00 [facility] (Prevnar 20) Branch Pneumococcal 20 2022-01-25 Completed [facility] Conjugate, PCV20 00:00:00 [facility] dical (Prevnar 20) Branch Moderna COVID19 [facility] COVID19 2021-06-02 Completed [facility] - Vaccine (Low Dose Vaccine (Low Dose 08:18:[address] [facility] Booster) Booster) [facility] COVID19 [facility] COVID19 2021-06-02 Completed [facility] Vaccine (Low Dose Vaccine (Low Dose 08:18:[address] [facility] Booster) Booster) [facility] COVID19 [facility] COVID19 2021-06-02 Completed [facility] - Vaccine (Low Dose Vaccine (Low Dose 08:18:[address] [facility] Booster) Booster) [facility] COVID19 [facility] COVID19 2021-06-02 Completed [facility] Vaccine (Low Dose Vaccine (Low Dose 08:18:[address] [facility] Booster) Booster) [facility] COVID19 [facility] COVID19 2021-06-02 Completed [facility] - Vaccine (Low Dose Vaccine (Low Dose 08:18:[address] [facility] Booster) Booster) [facility] COVID19 [facility] COVID19 2021-06-02 Completed [facility] Vaccine (Low Dose Vaccine (Low Dose 08:18:[address] [facility] Booster) Booster) [facility] COVID19 [facility] COVID19 2021-06-02 Completed [facility] Vaccine (Low Dose Vaccine (Low Dose 08:18:[address] [facility] Booster) Booster) [facility] COVID19 [facility] COVID19 2021-06-02 Completed [facility] - Vaccine (Low Dose Vaccine (Low Dose 08:18:[address] [facility] Booster) Booster) [facility] [address] [facility]02 Com[facility] Vaccine (Low Dose Vaccine (Low Dose 08:18:[address] [facility] Booster) Booster) [facility] [address] [facility] 2021-[facility]-02 Com[facility] - Vaccine (Low Dose Vaccine (Low Dose 08:18:[address] [facility] Booster) Booster) [facility] [address] [facility] 2021-[facility]-02 Com[facility] (Low Dose Vaccine (Low Dose 08:18:[address] [facility] [address] [facility] Com[facility] Vaccine (Low Dose Vaccine (Low Dose 08:18:[address] [facility] [address] [facility] 2021-[facility]-02 Com[facility] Vaccine (Low Dose Vaccine (Low Dose 08:18:[address] [facility] Booster) Booster) [facility] [address] [facility] 2021-06-02 Com[facility] Vaccine (Low Dose Vaccine (Low Dose 08:18:[address] [facility] Booster[facility]oster[facility] [address] [facility] 2021-[facility]-02 Com[facility] Vaccine (Low Dose Vaccine (Low Dose 08:18:[address] [facility] Booster) Booster) [facility] COVID[address] [facility] 2021-06-02 Com[facility] Vaccine (Low Dose Vaccine (Low Dose 08:18:[address] [facility] Booster[facility]oster[facility] [address] [facility] 2021-06-02 Com[facility] Vaccine (Low Dose Vaccine (Low Dose 08:18:[address] [facility] Booster) Booster) [facility] [address] [facility] 2021-06-02 Com[facility] Vaccine (Low Dose Vaccine (Low Dose 08:18:[address] [facility] Booster) Booster) [facility] [address] [facility] 2021-06-02 Com[facility] Vaccine (Low Dose Vaccine (Low Dose 08:18:[address] [facility] Booster) Booster) [facility] SARS-COV-2 COVID-19 2021-06-02 Completed [facility]ive rsity of VACCINE - (MODERNA) 00:00:00 [facility] SARS-COV-2 COVID-19 2021-06-02 Completed [facility]ive rs[facility] of VACCINE - (MODERNA) 00:00:00 [facility] SARS-COV-2 COVID-19 2021-06-02 Completed [facility] of VACCINE - (MODERNA) 00:00:00 [facility] SARS-COV-2 COVID-19 2021-06-02 Completed [facility] of VACCINE - (MODERNA) 00:00:00 [facility] SARS-COV-2 COVID-19 2021-06-02 Completed [facility] of VACCINE - (MODERNA) 00:00:00 [facility] SARS-COV-2 COVID-19 2021-06-02 Completed [facility] of VACCINE - (MODERNA) 00:00:00 [facility] SARS-COV-2 COVID-19 2021-06-02 Completed [facility] of VACCINE - (MODERNA) 00:00:00 [facility] SARS-COV-2 COVID-19 2021-06-02 Completed [facility] of VACCINE - (MODERNA) 00:00:00 [facility] SARS-COV-2 COVID-19 2021-06-02 Completed [facility] of VACCINE - (MODERNA) 00:00:00 [facility] SARS-COV-2 COVID-19 2021-06-02 Completed [facility] of VACCINE - (MODERNA) 00:00:00 [facility] SARS-COV-2 COVID-19 2021-06-02 Completed [facility] of VACCINE - (MODERNA) 00:00:00 [facility] SARS-COV-2 COVID-19 2021-06-02 Completed [facility] of VACCINE - (MODERNA) 00:00:00 [facility] SARS-COV-2 COVID-19 2021-06-02 Completed [facility] of VACCINE - (MODERNA) 00:00:00 [facility] SARS-COV-2 COVID-19 2021-06-02 Completed [facility] of VACCINE - (MODERNA) 00:00:00 [facility] SARS-COV-2 COVID-19 2021-06-02 Completed [facility] of VACCINE - (MODERNA) 00:00:00 [facility] SARS-COV-2 COVID-19 2021-06-02 Completed [facility] of VACCINE - (MODERNA) 00:00:00 [facility] SARS-COV-2 COVID-19 2021-06-02 Completed [facility] of VACCINE - (MODERNA) 00:00:00 [facility] SARS-COV-2 COVID-19 2021-06-02 Completed [facility] of VACCINE - (MODERNA) 00:00:00 [facility] SARS-COV-2 COVID-19 2021-06-02 Completed [facility] of VACCINE - (MODERNA) 00:00:00 [facility] SARS-COV-2 COVID-19 2021-06-02 Completed [facility] of VACCINE - (MODERNA) 00:00:00 [facility] SARS-COV-2 COVID-19 2021-06-02 Completed [facility] of VACCINE - (MODERNA) 00:00:00 [facility] SARS-COV-2 COVID-19 2021-06-02 Completed [facility] of VACCINE - (MODERNA) 00:00:00 [facility] SARS-COV-2 COVID-19 2021-06-02 Completed [facility] of VACCINE - (MODERNA) 00:00:00 [facility] SARS-COV-2 COVID-19 2021-06-02 Completed [facility] of VACCINE - (MODERNA) 00:00:00 [facility] SARS-COV-2 COVID-19 2021-06-02 Completed [facility] of VACCINE - (MODERNA) 00:00:00 [facility] SARS-COV-2 COVID-19 2021-06-02 Completed [facility] of VACCINE - (MODERNA) 00:00:00 [facility] Fluzone Fluzone 2021-02-21 Completed [facility] - 14:39:00 [facility] Fluzone Fluzone 2021-02-21 Completed [facility] - 14:39:00 [facility] Fluzone Fluzone 2021-02-21 Completed [facility] - 14:39:00 [facility] Fluzone Fluzone 2021-02-21 Completed [facility] - 14:39:00 [facility] Fluzone Fluzone 2021-02-21 Completed [facility] - 14:39:00 [facility] Fluzone Fluzone 2021-02-21 Completed [facility] - 14:39:00 [facility] Fluzone Fluzone 2021-02-21 Completed [facility] - 14:39:00 [facility] Fluzone Fluzone 2021-02-21 Completed [facility] - 14:39:00 [facility] Fluzone Fluzone 2021-02-21 Completed [facility] - 14:39:00 [facility] Fluzone Fluzone 2021-02-21 Completed [facility] - 14:39:00 [facility] Fluzone Fluzone 2021-02-21 Completed [facility] - 14:39:00 [facility] Fluzone Fluzone 2021-02-21 Completed [facility] - 14:39:00 [facility] Fluzone Fluzone 2021-02-21 Completed [facility] - 14:39:00 [facility] Fluzone Fluzone 2021-02-21 Completed [facility] - 14:39:00 [facility] Fluzone Fluzone 2021-02-21 Completed [facility] - 14:39:00 [facility] Fluzone Fluzone 2021-02-21 Completed [facility] - 14:39:00 [facility] Fluzone Fluzone 2021-02-21 Completed [facility] - 14:39:00 [facility] Fluzone Fluzone 2021-02-21 Completed [facility] - 14:39:00 [facility] Fluzone Fluzone 2021-02-21 Completed [facility] - 14:39:00 [facility] Fluzone Fluzone 2021-02-21 Completed [facility] - 14:39:00 [facility] Fluzone Fluzone 2021-02-21 Completed [facility] - 14:39:00 [facility] Fluzone Fluzone 2021-02-21 Completed [facility] - 14:39:00 [facility] Fluzone Fluzone 2021-02-21 Completed [facility] - 14:39:00 [facility] Fluzone Fluzone 2021-02-21 Completed [facility] - 14:39:00 [facility] Fluzone Fluzone 2021-02-21 Completed [facility] - 14:39:00 [facility] Fluzone Fluzone 2021-02-21 Completed [facility] - 14:39:00 [facility] Fluzone Fluzone 2021-02-21 Completed [facility] - 14:39:00 [facility] Influenza Virus 2021-02-21 Completed [facility] Vaccine Quad .5 mL 00:00:00 [facility] 6+ MO Branch Influenza Virus 2021-02-21 Completed [facility] of Vaccine (3+ yrs) 00:00:00 [facility] dicwv Branch Influenza Virus 2021-02-21 Completed [facility] Vaccine Quad .5 mL 00:00:00 [facility] 6+ MO Branch Influenza Virus 2021-02-21 Completed [facility] of Vaccine (3+ yrs) 00:00:00 [facility] dical Branch Influenza Virus 2021-02-21 Completed [facility] of Vaccine Quad .5 mL 00:00:00 [facility] 6+ MO Branch Influenza Virus 2021-02-21 Completed [facility] Vaccine (3+ yrs) 00:00:00 [facility] dicwv Branch Influenza Virus 2021-02-21 Completed [facility] of Vaccine Quad .5 mL 00:00:00 [facility] 6+ MO Branch Influenza Virus 2021-02-21 Completed [facility] Vaccine (3+ yrs) 00:00:00 [facility] dical Branch Influenza Virus 2021-02-21 Completed [facility] of Vaccine Quad .5 mL 00:00:00 [facility] 6+ MO Branch Influenza Virus 2021-02-21 Completed [facility] of Vaccine (3+ yrs) 00:00:00 [facility] dical Branch Influenza Virus 2021-02-21 Completed [facility] of Vaccine Quad .5 mL 00:00:00 [facility] 6+ MO Branch Influenza Virus 2021-02-21 Completed [facility] of Vaccine (3+ yrs) 00:00:00 [facility] dical Branch Influenza Virus 2021-02-21 Completed [facility] of Vaccine Quad .5 mL 00:00:00 [facility] 6+ MO Branch Influenza Virus 2021-02-21 Completed [facility] of Vaccine (3+ yrs) 00:00:00 [facility] dical Branch Influenza Virus 2021-02-21 Completed [facility] of Vaccine Quad .5 mL 00:00:00 [facility] IM 6+ MO Branch Influenza Virus 2021-02-21 Completed [facility] of Vaccine (3+ yrs) 00:00:00 [facility] dical Branch Influenza Virus 2021-02-21 Completed [facility] of Vaccine Quad .5 mL 00:00:00 [facility] 6+ MO Branch Influenza Virus 2021-02-21 Completed [facility] of Vaccine (3+ yrs) 00:00:00 [facility] dical Branch Influenza Virus 2021-02-21 Completed [facility] of Vaccine Quad .5 mL 00:00:00 [facility] 6+ MO Branch Influenza Virus 2021-02-21 Completed [facility] of Vaccine (3+ yrs) 00:00:00 [facility] dical Branch Influenza Virus 2021-02-21 Completed [facility] Vaccine Quad .5 mL 00:00:00 [facility] 6+ MO Branch Influenza Virus 2021-02-21 Completed [facility] of Vaccine (3+ yrs) 00:00:00 [facility] dical Branch Influenza Virus 2021-02-21 Completed [facility] of Vaccine Quad .5 mL 00:00:00 [facility] 6+ MO Branch Influenza Virus 2021-02-21 Completed [facility] of Vaccine (3+ yrs) 00:00:00 [facility] dical Branch Influenza Virus 2021-02-21 Completed [facility] of Vaccine Quad .5 mL 00:00:00 [facility] 6+ MO Branch Influenza Virus 2021-02-21 Completed [facility] of Vaccine (3+ yrs) 00:00:00 [facility] dical Branch Influenza Virus 2021-02-21 Completed [facility] of Vaccine Quad .5 mL 00:00:00 [facility] 6+ MO Branch Influenza Virus 2021-02-21 Completed [facility] of Vaccine (3+ yrs) 00:00:00 [facility] dical Branch Influenza Virus 2021-02-21 Completed [facility] of Vaccine Quad .5 mL 00:00:00 [facility] 6+ MO Branch Influenza Virus 2021-02-21 Completed [facility] of Vaccine (3+ yrs) 00:00:00 [facility] dical Branch Influenza Virus 2021-02-21 Completed [facility] of Vaccine Quad .5 mL 00:00:00 [facility] 6+ MO Branch Influenza Virus 2021-02-21 Completed [facility] of Vaccine (3+ yrs) 00:00:00 [facility] dical Branch Influenza Virus 2021-02-21 Completed [facility] of Vaccine Quad .5 mL 00:00:00 [facility] 6+ MO Branch Influenza Virus 2021-02-21 Completed [facility] of Vaccine (3+ yrs) 00:00:00 [facility] dical Branch Influenza Virus 2021-02-21 Completed [facility] of Vaccine Quad .5 mL 00:00:00 [facility] 6+ MO Branch Influenza Virus 2021-02-21 Completed [facility] of Vaccine (3+ yrs) 00:00:00 [facility] dical Branch Influenza Virus 2021-02-21 Completed [facility] of Vaccine Quad .5 mL 00:00:00 [facility] 6+ MO Branch Influenza Virus 2021-02-21 Completed [facility] of Vaccine (3+ yrs) 00:00:00 [facility] dical Branch Influenza Virus 2021-02-21 Completed [facility] of Vaccine Quad .5 mL 00:00:00 [facility] 6+ MO Branch Influenza Virus 2021-02-21 Completed [facility] of Vaccine (3+ yrs) 00:00:00 [facility] dical Branch Influenza Virus 2021-02-21 Completed [facility] of Vaccine Quad .5 mL 00:00:00 [facility] 6+ MO Branch Influenza Virus 2021-02-21 Completed [facility] of Vaccine (3+ yrs) 00:00:00 [facility] dical Branch Influenza Virus 2021-02-21 Completed [facility] of Vaccine Quad .5 mL 00:00:00 [facility] 6+ MO Branch Influenza Virus 2021-02-21 Completed [facility] of Vaccine (3+ yrs) 00:00:00 [facility] dical Branch Influenza Virus 2021-02-21 Completed [facility] of Vaccine Quad .5 mL 00:00:00 [facility] 6+ MO Branch Influenza Virus 2021-02-21 Completed [facility] of Vaccine (3+ yrs) 00:00:00 [facility] dical Branch Influenza Virus 2021-02-21 Completed [facility] of Vaccine Quad .5 mL 00:00:00 [facility] 6+ MO Branch Influenza Virus 2021-02-21 Completed [facility] of Vaccine (3+ yrs) 00:00:00 [facility] dicwv Branch Influenza Virus 2021-02-21 Completed [facility] of Vaccine Quad .5 mL 00:00:00 [facility] IM 6+ MO Branch Influenza Virus 2021-02-21 Completed [facility] of Vaccine (3+ yrs) 00:00:00 [facility] dicwv Branch Influenza Virus 2021-02-21 Completed [facility] of Vaccine Quad .5 mL 00:00:00 [facility] 6+ MO Branch Influenza Virus 2021-02-21 Completed [facility] of Vaccine (3+ yrs) 00:00:00 [facility] Moderna COVID-19 Moderna COVID-19 2020-10-03 Completed [facility] - Vaccine Vaccine 14:55:00 [facility] Moderna COVID-19 Moderna COVID-19 2020-10-03 Completed [facility] - Vaccine Vaccine 14:55:00 [facility] Moderna COVID-19 Moderna COVID-19 2020-10-03 Completed [facility] - Vaccine Vaccine 14:55:00 [facility] Moderna COVID-19 Moderna COVID-19 2020-10-03 Completed [facility] - Vaccine Vaccine 14:55:00 [facility] Moderna COVID-19 Moderna COVID-19 2020-10-03 Completed [facility] - Vaccine Vaccine 14:55:00 [facility] Moderna COVID-19 Moderna COVID-19 2020-10-03 Completed [facility] - Vaccine Vaccine 14:55:00 [facility] Moderna COVID-19 Moderna COVID-19 2020-10-03 Completed [facility] - Vaccine Vaccine 14:55:00 [facility] Moderna COVID-19 Moderna COVID-19 2020-10-03 Completed [facility] - Vaccine Vaccine 14:55:00 [facility] Moderna COVID-19 Moderna COVID-19 2020-10-03 Completed [facility] - Vaccine Vaccine 14:55:00 [facility] Moderna COVID-19 Moderna COVID-19 2020-10-03 Completed [facility] - Vaccine Vaccine 14:55:00 [facility] Moderna COVID-19 Moderna COVID-19 2020-10-03 Completed [facility] - Vaccine Vaccine 14:55:00 [facility] Moderna COVID-19 Moderna COVID-19 2020-10-03 Completed [facility] - Vaccine Vaccine 14:55:00 [facility] Moderna COVID-19 Moderna COVID-19 2020-10-03 Completed [facility] - Vaccine Vaccine 14:55:00 [facility] Moderna COVID-19 Moderna COVID-19 2020-10-03 Completed [facility] - Vaccine Vaccine 14:55:00 [facility] Moderna COVID-19 Moderna COVID-19 2020-10-03 Completed [facility] - Vaccine Vaccine 14:55:00 [facility] Moderna COVID-19 Moderna COVID-19 2020-10-03 Completed [facility] - Vaccine Vaccine 14:55:00 [facility] Moderna COVID-19 Moderna COVID-19 2020-10-03 Completed [facility] - Vaccine Vaccine 14:55:00 [facility] Moderna COVID-19 Moderna COVID-19 2020-10-03 Completed [facility] - Vaccine Vaccine 14:55:00 [facility] Moderna COVID-19 Moderna COVID-19 2020-10-03 Completed [facility] Vaccine 14:55:00 [facility] Moderna COVID-19 Moderna COVID-19 2020-10-03 Completed [facility] Vaccine Vaccine 14:55:00 [facility] Moderna COVID-19 Moderna COVID-19 2020-10-03 Completed [facility] Vaccine Vaccine 14:55:00 [facility] Moderna COVID-19 Moderna COVID-19 2020-10-03 Completed [facility] Vaccine Vaccine 14:55:00 [facility] Moderna COVID-19 Moderna COVID-19 2020-10-03 Completed [facility] Vaccine Vaccine 14:55:00 [facility] Moderna COVID-19 Moderna COVID-19 2020-10-03 Completed [facility] Vaccine Vaccine 14:55:00 [facility] Moderna COVID-19 Moderna COVID-19 2020-10-03 Completed [facility] Vaccine Vaccine 14:55:00 [facility] Moderna COVID-19 Moderna COVID-19 2020-10-03 Completed [facility] Vaccine Vaccine 14:55:00 [facility] Moderna COVID-19 Moderna COVID-19 2020-10-03 Completed [facility] Vaccine Vaccine 14:55:00 [facility] SARS-COV-2 COVID-19 2020-10-03 Completed [facility] VACCINE - (MODERNA) 00:00:00 [facility] SARS-COV-2 COVID-19 2020-10-03 Completed [facility] VACCINE - (MODERNA) 00:00:00 [facility] SARS-COV-2 COVID-19 2020-10-03 Completed [facility] VACCINE - (MODERNA) 00:00:00 [facility] SARS-COV-2 COVID-19 2020-10-03 Completed [facility] VACCINE - (MODERNA) 00:00:00 [facility] SARS-COV-2 COVID-19 2020-10-03 Completed [facility] VACCINE - (MODERNA) 00:00:00 [facility] SARS-COV-2 COVID-19 2020-10-03 Completed [facility] VACCINE - (MODERNA) 00:00:00 [facility] SARS-COV-2 COVID-19 2020-10-03 Completed [facility] VACCINE - (MODERNA) 00:00:00 [facility] SARS-COV-2 COVID-19 2020-10-03 Completed [facility] VACCINE - (MODERNA) 00:00:00 [facility] SARS-COV-2 COVID-19 2020-10-03 Completed [facility] VACCINE - (MODERNA) 00:00:00 [facility] SARS-COV-2 COVID-19 2020-10-03 Completed [facility] VACCINE - (MODERNA) 00:00:00 [facility] SARS-COV-2 COVID-19 2020-10-03 Completed [facility] of VACCINE - (MODERNA) 00:00:00 [facility] SARS-COV-2 COVID-19 2020-10-03 Completed [facility] VACCINE - (MODERNA) 00:00:00 [facility] SARS-COV-2 COVID-19 2020-10-03 Completed [facility] VACCINE - (MODERNA) 00:00:00 [facility] SARS-COV-2 COVID-19 2020-10-03 Completed [facility] VACCINE - (MODERNA) 00:00:00 [facility] SARS-COV-2 COVID-19 2020-10-03 Completed [facility] VACCINE - (MODERNA) 00:00:00 [facility] SARS-COV-2 COVID-19 2020-10-03 Completed [facility] VACCINE - (MODERNA) 00:00:00 [facility] SARS-COV-2 COVID-19 2020-10-03 Completed [facility] VACCINE - (MODERNA) 00:00:00 [facility] SARS-COV-2 COVID-19 2020-10-03 Completed [facility] VACCINE - (MODERNA) 00:00:00 [facility] SARS-COV-2 COVID-19 2020-10-03 Completed [facility] VACCINE - (MODERNA) 00:00:00 [facility] SARS-COV-2 COVID-19 2020-10-03 Completed [facility] VACCINE - (MODERNA) 00:00:00 [facility] SARS-COV-2 COVID-19 2020-10-03 Completed [facility] VACCINE - (MODERNA) 00:00:00 [facility] SARS-COV-2 COVID-19 2020-10-03 Completed [facility] VACCINE - (MODERNA) 00:00:00 [facility] SARS-COV-2 COVID-19 2020-10-03 Completed [facility] VACCINE - (MODERNA) 00:00:00 [facility] SARS-COV-2 COVID-19 2020-10-03 Completed [facility] VACCINE - (MODERNA) 00:00:00 [facility] SARS-COV-2 COVID-19 2020-10-03 Completed [facility] VACCINE - (MODERNA) 00:00:00 [facility] SARS-COV-2 COVID-19 2020-10-03 Completed [facility] VACCINE - (MODERNA) 00:00:00 [facility] Moderna COVID-19 Moderna COVID-19 2020-09-05 Completed [facility] Vacc[facility] Vaccine 10:56:00 [facility] Moderna COVID-19 Moderna COVID-19 2020-09-05 Completed [facility] Vaccine Vaccine 10:56:00 [facility] Moderna COVID-19 Moderna COVID-19 2020-09-05 Completed [facility] Vaccine Vaccine 10:56:00 [facility] Moderna COVID-19 Moderna COVID-19 2020-09-05 Completed [facility] Vaccine Vaccine 10:56:00 [facility] Moderna COVID-19 Moderna COVID-19 2020-09-05 Completed [facility] Vaccine Vaccine 10:56:00 [facility] Moderna COVID-19 Moderna COVID-19 2020-09-05 Completed [facility] Vaccine Vaccine 10:56:00 [facility] Moderna COVID-19 Moderna COVID-19 2020-09-05 Completed [facility] Vaccine Vaccine 10:56:00 [facility] Moderna COVID-19 Moderna COVID-19 2020-09-05 Completed [facility] Vaccine Vaccine 10:56:00 [facility] Moderna COVID-19 Moderna COVID-19 2020-09-05 Completed [facility] Vaccine Vaccine 10:56:00 [facility] Moderna COVID-19 Moderna COVID-19 2020-09-05 Completed [facility] Vaccine Vaccine 10:56:00 [facility] Moderna COVID-19 Moderna COVID-19 2020-09-05 Completed [facility] Vaccine Vaccine 10:56:00 [facility] Moderna COVID-19 Moderna COVID-19 2020-09-05 Completed [facility] Vaccine Vaccine 10:56:00 [facility] Moderna COVID-19 Moderna COVID-19 2020-09-05 Completed [facility] Vaccine Vaccine 10:56:00 [facility] Moderna COVID-19 Moderna COVID-19 2020-09-05 Completed [facility] Vaccine Vaccine 10:56:00 [facility] Moderna COVID-19 Moderna COVID-19 2020-09-05 Completed [facility] Vaccine Vaccine 10:56:00 [facility] Moderna COVID-19 Moderna COVID-19 2020-09-05 Completed [facility] Vaccine Vaccine 10:56:00 [facility] Moderna COVID-19 Moderna COVID-19 2020-09-05 Completed [facility] Vaccine Vaccine 10:56:00 [facility] Moderna COVID-19 Moderna COVID-19 2020-09-05 Completed [facility] Vaccine Vaccine 10:56:00 [facility] Moderna COVID-19 Moderna COVID-19 2020-09-05 Completed [facility] Vaccine Vaccine 10:56:00 [facility] Moderna COVID-19 Moderna COVID-19 2020-09-05 Completed [facility] Vaccine Vaccine 10:56:00 [facility] Moderna COVID-19 Moderna COVID-19 2020-09-05 Completed [facility] Vaccine Vaccine 10:56:00 [facility] Moderna COVID-19 Moderna COVID-19 2020-09-05 Completed [facility] Vaccine Vaccine 10:56:00 [facility] Moderna COVID-19 Moderna COVID-19 2020-09-05 Completed [facility] Vaccine Vaccine 10:56:00 [facility] Moderna COVID-19 Moderna COVID-19 2020-09-05 Completed [facility] Vaccine Vaccine 10:56:00 [facility] Moderna COVID-19 Moderna COVID-19 2020-09-05 Completed [facility] Vaccine Vaccine 10:56:00 [facility] Moderna COVID-19 Moderna COVID-19 2020-09-05 Completed [facility] Vaccine Vaccine 10:56:00 [facility] Moderna COVID-19 Moderna COVID-19 2020-09-05 Completed [facility] Vaccine Vaccine 10:56:00 [facility] SARS-COV-2 COVID-19 2020-09-05 Completed [facility] VACCINE - (MODERNA) 00:00:00 [facility] SARS-COV-2 COVID-19 2020-09-05 Completed [facility] VACCINE - (MODERNA) 00:00:00 [facility] SARS-COV-2 COVID-19 2020-09-05 Completed [facility] VACCINE - (MODERNA) 00:00:00 [facility] SARS-COV-2 COVID-19 2020-09-05 Completed [facility] VACCINE - (MODERNA) 00:00:00 [facility] SARS-COV-2 COVID-19 2020-09-05 Completed [facility] VACCINE - (MODERNA) 00:00:00 [facility] SARS-COV-2 COVID-19 2020-09-05 Completed [facility] VACCINE - (MODERNA) 00:00:00 [facility] SARS-COV-2 COVID-19 2020-09-05 Completed [facility] VACCINE - (MODERNA) 00:00:00 [facility] SARS-COV-2 COVID-19 2020-09-05 Completed [facility] VACCINE - (MODERNA) 00:00:00 [facility] SARS-COV-2 COVID-19 2020-09-05 Completed [facility] VACCINE - (MODERNA) 00:00:00 [facility] SARS-COV-2 COVID-19 2020-09-05 Completed [facility] VACCINE - (MODERNA) 00:00:00 [facility] SARS-COV-2 COVID-19 2020-09-05 Completed [facility] VACCINE - (MODERNA) 00:00:00 [facility] SARS-COV-2 COVID-19 2020-09-05 Completed [facility] VACCINE - (MODERNA) 00:00:00 [facility] SARS-COV-2 COVID-19 2020-09-05 Completed [facility] VACCINE - (MODERNA) 00:00:00 [facility] SARS-COV-2 COVID-19 2020-09-05 Completed [facility] VACCINE - (MODERNA) 00:00:00 [facility] SARS-COV-2 COVID-19 2020-09-05 Completed [facility] VACCINE - (MODERNA) 00:00:00 [facility] SARS-COV-2 COVID-19 2020-09-05 Completed [facility] VACCINE - (MODERNA) 00:00:00 [facility] SARS-COV-2 COVID-19 2020-09-05 Completed [facility] VACCINE - (MODERNA) 00:00:00 [facility] SARS-COV-2 COVID-19 2020-09-05 Completed [facility] VACCINE - (MODERNA) 00:00:00 [facility] SARS-COV-2 COVID-19 2020-09-05 Completed [facility] VACCINE - (MODERNA) 00:00:00 [facility] SARS-COV-2 COVID-19 2020-09-05 Completed [facility] VACCINE - (MODERNA) 00:00:00 [facility] SARS-COV-2 COVID-19 2020-09-05 Completed [facility] VACCINE - (MODERNA) 00:00:00 [facility] SARS-COV-2 COVID-19 2020-09-05 Completed [facility] VACCINE - (MODERNA) 00:00:00 [facility] SARS-COV-2 COVID-19 2020-09-05 Completed [facility] VACCINE - (MODERNA) 00:00:00 [facility] SARS-COV-2 COVID-19 2020-09-05 Completed [facility] VACCINE - (MODERNA) 00:00:00 [facility] SARS-COV-2 COVID-19 2020-09-05 Completed [facility] VACCINE - (MODERNA) 00:00:00 [facility] SARS-COV-2 COVID-19 2020-09-05 Completed [facility] VACCINE - (MODERNA) 00:00:00 [facility] Vital Signs Vital Name Observation Time Observation Value Comments Source Systolic blood 2022-10-03 14:55:00 90 mm[Hg] [facility] Diastolic blood 2022-10-03 14:55:00 63 mm[Hg] [facility] Heart rate 2022-10-03 14:55:00 63 /min [facility] Body height 2022-10-03 14:55:00 154.9 cm [facility] Body weight 2022-10-03 14:55:00 116.166 kg [facility] BMI 2022-10-03 14:55:00 48.39 kg/m2 [facility] Oxygen saturation in 2022-10-03 14:55:00 96 /min [facility] [place] [email or web address] [facility] Systolic blood 2022-10-02 14:43:00 92 mm[Hg] [facility] Diastolic blood 2022-10-02 14:43:00 61 mm[Hg] [facility] Heart rate 2022-10-02 14:43:00 71 /min [facility] Respiratory rate 2022-10-02 14:39:00 19 /min [facility] Body height 2022-10-02 14:39:00 154.9 cm [facility] Body weight 2022-10-02 14:39:00 115.486 kg [facility] BMI 2022-10-02 14:39:00 48.11 kg/m2 [facility] Oxygen saturation in 2022-10-02 14:39:00 94 /min [facility] [place] [facility] Systolic blood 2022-09-27 19:22:00 111 mm[Hg] [facility] Diastolic blood 2022-09-27 19:22:00 72 mm[Hg] [facility] Heart rate 2022-09-27 19:22:00 70 /min [facility] Respiratory rate 2022-09-27 19:22:00 18 /min [facility] Body height 2022-09-27 19:22:00 154.9 cm [facility] Body weight 2022-09-27 19:22:00 115.35 kg [facility] BMI 2022-09-27 19:22:00 48.05 kg/m2 [facility] Oxygen saturation in 2022-09-27 19:22:00 99 /min [facility] [place] [email or web address] [facility] Systolic blood 2022-08-19 15:57:00 90 mm[Hg] [facility] Diastolic blood 2022-08-19 15:57:00 63 mm[Hg] [facility] Heart rate 2022-08-19 15:57:00 67 /min [facility] Body height 2022-08-19 15:57:00 154.9 cm [facility] Body weight 2022-08-19 15:57:00 113.898 kg [facility] BMI 2022-08-19 15:57:00 47.44 kg/m2 [facility] Oxygen saturation in 2022-08-19 15:57:00 96 /min [facility] [place] [email or web address] Pulse oximetry Branch Systolic blood 2022-07-08 19:02:00 95 mm[Hg] [facility] Diastolic blood 2022-07-08 19:02:00 54 mm[Hg] [facility] Heart rate 2022-07-08 19:02:00 62 /min [facility] Body temperature 2022-07-08 19:02:00 36.33 Marya [facility] Respiratory rate 2022-07-08 19:02:00 18 /min [facility] Body height 2022-07-08 19:02:00 154.9 cm [facility] Body weight 2022-07-08 19:02:00 115.713 kg [facility] BMI 2022-07-08 19:02:00 48.20 kg/m2 [facility] Oxygen saturation in 2022-07-08 19:02:00 99 /min [facility] [place] [facility] height 2022-05-30 13:40:00 61 [in_i] [facility] weight 2022-05-30 13:40:00 249.4 [lb_av] Common [facility] temperature 2022-05-30 13:40:00 97.4 [degF] Common [facility] bmi 2022-05-30 13:40:00 47.12 kg/m2 Common [facility] oximetry 2022-05-30 13:40:00 96 % [facility] respiratory rate 2022-05-30 13:40:00 17 /min Comm on [facility] blood pressure 2022-05-30 13:40:00 119 mm[Hg] Common [facility] - systolic [facility] blood pressure 2022-05-30 13:40:00 68 mm[Hg] Common [facility] - diastolic [facility] height 2022-05-30 14:00:00 61 [in_i] [facility] weight 2022-05-30 14:00:00 249.4 [lb_av] [facility] temperature 2022-05-30 14:00:00 97.4 [degF] [facility] bmi 2022-05-30 14:00:00 47.12 kg/m2 [facility] oximetry 2022-05-30 14:00:00 96 % [facility] respiratory rate 2022-05-30 14:00:00 17 /min Comm on [facility] blood pressure 2022-05-30 14:00:00 119 mm[Hg] Common [facility] - systolic [facility] blood pressure 2022-05-30 14:00:00 68 mm[Hg] Common [facility] diastolic [facility] Systolic blood 2022-04-10 17:14:00 109 mm[Hg] Univer [facility]ity of pressure [facility] Diastolic blood 2022-04-10 17:14:00 71 mm[Hg] [facility] of pressure [facility] Heart rate 2022-04-10 17:14:00 65 /min [facility] Respiratory rate 2022-04-10 17:14:00 19 /min Univ ers[facility] of [facility] Body height 2022-04-10 17:14:00 154.9 cm [facility] Body weight 2022-04-10 17:14:00 115.123 kg [facility] BMI 2022-04-10 17:14:00 47.96 kg/m2 [facility] Oxygen saturation in 2022-04-10 17:14:00 97 /min [facility] Arterial blood by [facility] Pulse oximetry Branch Systolic blood 2022-02-25 18:19:00 114 mm[Hg] [email or web address] Diastolic blood 2022-02-25 18:19:00 74 mm[Hg] [facility]ity of [email or web address] Heart rate 2022-02-25 18:19:00 79 /min [facility] Body temperature 2022-02-25 18:19:00 36.17 [facility] Respiratory rate 2022-02-25 18:19:00 16 /min [facility] of [facility] Body weight 2022-02-25 18:19:00 114.443 kg [facility] BMI 2022-02-25 18:19:00 47.67 kg/m2 [facility] height 2022-01-24 11:00:00 61 [in_i] [facility] weight 2022-01-24 11:00:00 250 [lb_av] [facility] temperature 2022-01-24 11:00:00 97.3 [degF] [facility] bmi 2022-01-24 11:00:00 47.23 kg/m2 [facility] oximetry 2022-01-24 11:00:00 95 % [facility] respiratory rate 2022-01-24 11:00:00 18 /min Comm on [facility] blood pressure 2022-01-24 11:00:00 100 mm[Hg] [facility] blood pressure 2022-01-24 11:00:00 59 mm[Hg] [facility] diastolic [facility] height 2021-12-04 10:20:00 [facility] - [facility] weight 2021-12-04 10:20:00 260 [lb_av] [facility] - [facility] temperature 2021-12-04 10:20:00 97.3 [degF] Common [facility] bmi 2021-12-04 10:20:00 49.12 kg/m2 Common [facility] oximetry 2021-12-04 10:20:00 96 % [facility] respiratory rate 2021-12-04 10:20:00 18 /min Comm on [facility] blood pressure 2021-12-04 10:20:00 110 mm[Hg] [facility] systolic [facility] blood pressure 2021-12-04 10:20:00 65 mm[Hg] [facility] diastolic [facility] height 2021-09-04 09:40:00 62.25 [in_i] [facility] weight 2021-09-04 09:40:00 261.4 [lb_av] Common [facility] temperature 2021-09-04 09:40:00 98.1 [degF] Common [facility] bmi 2021-09-04 09:40:00 47.42 kg/m2 Common [facility] oximetry 2021-09-04 09:40:00 100 % [facility] respiratory rate 2021-09-04 09:40:00 16 /min Comm on [facility] blood pressure 2021-09-04 09:40:00 110 mm[Hg] [facility] systolic [facility] blood pressure 2021-09-04 09:40:00 84 mm[Hg] [facility] height 2021-06-05 10:00:00 62.25 [in_i] [facility] weight 2021-06-05 10:00:00 259 [lb_av] Common [facility] temperature 2021-06-05 10:00:00 98.1 [degF] Common [facility] bmi 2021-06-05 10:00:00 46.99 kg/m2 [facility] oximetry 2021-06-05 10:00:00 96 % [facility] respiratory rate 2021-06-05 10:00:00 18 /min Comm on [facility] blood pressure 2021-06-05 10:00:00 96 mm[Hg] [facility] systolic [facility] blood pressure 2021-06-05 10:00:00 50 mm[Hg] [facility] diastolic [facility] height 2021-06-05 10:20:00 62.25 [in_i] Common [facility] weight 2021-06-05 10:20:00 259 [lb_av] [facility] temperature 2021-06-05 10:20:00 98.1 [degF] Common [facility] bmi 2021-06-05 10:20:00 46.99 kg/m2 [facility] S pirit [facility] oximetry 2021-06-05 10:20:00 96 % [facility] blood pressure 2021-06-05 10:20:00 96 mm[Hg] [facility] blood pressure 2021-06-05 10:20:00 50 mm[Hg] [facility] diastolic [facility] height 2021-05-14 10:00:00 62.25 [in_i] [facility] weight 2021-05-14 10:00:00 269 [lb_av] Common [facility] bmi 2021-05-14 10:00:00 48.8 kg/m2 [facility] height 2021-03-26 10:00:00 62.25 [in_i] [facility] weight 2021-03-26 10:00:00 261 [lb_av] [facility] temperature 2021-03-26 10:00:00 97.1 [degF] [facility] bmi 2021-03-26 10:00:00 47.35 kg/m2 [facility] oximetry 2021-03-26 10:00:00 96 % [facility] respiratory rate 2021-03-26 10:00:00 16 /min Comm on [facility] blood pressure 2021-03-26 10:00:00 104 mm[Hg] Common [facility] - systolic [facility] blood pressure 2021-03-26 10:00:00 54 mm[Hg] Common [facility] - diastolic [facility] height 2021-02-26 08:40:00 62.25 [in_i] [facility] weight 2021-02-26 08:40:00 265 [lb_av] [facility] temperature 2021-02-26 08:40:00 97.2 [degF] [facility] bmi 2021-02-26 08:40:00 48.08 kg/m2 [facility] oximetry 2021-02-26 08:40:00 97 % [facility] respiratory rate 2021-02-26 08:40:00 16 /min Comm on [facility] blood pressure 2021-02-26 08:40:00 111 mm[Hg] Common [facility] - systolic [facility] blood pressure 2021-02-26 08:40:00 60 mm[Hg] [facility] - diastolic [facility] BP Diastolic 2020-09-14 00:00:00 68 mm[Hg] [facility] Height 2020-09-14 00:00:00 61 [in_i] [facility] BMI (Body Mass 2020-09-14 00:00:00 48 kg/m2 [facility] BP Systolic 2020-09-14 00:00:00 102 mm[Hg] [facility] Body Weight 2020-09-14 00:00:00 254.2 [lb_av] [facility] BP Diastolic 2020-05-31 00:00:00 79 mm[Hg] [facility] Height 2020-05-31 00:00:00 61 [in_i] [facility] BMI (Body Mass 2020-05-31 00:00:00 49.3 kg/m2 [facility]) [facility] BP Systolic 2020-05-31 00:00:00 116 mm[Hg] [facility] Body Weight 2020-05-31 00:00:00 260.7 [lb_av] [facility] Body Weight 2020-03-07 00:00:00 261.5 [lb_av] [facility] BP Diastolic 2020-03-07 00:00:00 66 mm[Hg] [facility] Height 2020-03-07 00:00:00 61 [in_i] [facility] BMI (Body Mass 2020-03-07 00:00:00 49.4 kg/m2 [facility] BP Systolic 2020-03-07 00:00:00 115 mm[Hg] [facility] Systolic (mm Hg) 2021-04-23 16:18:00 Andres rial [place] Diastolic (mm Hg) 2021-04-23 16:18:00 [facility] [place] Heart Rate 2021-04-23 16:18:00 [facility] Respitory Rate 2021-04-23 16:18:00 [facility] [place] Height 2021-04-23 16:18:00 154.94 cm [facility] Weight 2021-04-23 16:18:00 [facility] [place] [facility] BMI Calculated 2021-04-23 16:18:00 [facility] Systolic (mm Hg) 2021-03-22 18:19:00 Andres [facility] Diastolic (mm Hg) 2021-03-22 18:19:00 [facility] [place] Heart Rate 2021-03-22 18:19:00 [facility] [place] Respitory Rate 2021-03-22 18:19:00 [facility] Height 2021-03-22 18:19:00 154.94 cm [facility] Weight 2021-03-22 18:19:00 [facility] BMI Calculated 2021-03-22 18:19:00 [facility] Systolic (mm Hg) 2021-02-21 18:59:00 Andres [facility] Diastolic (mm Hg) 2021-02-21 18:59:00 [facility] [place] Heart Rate 2021-02-21 18:59:00 [facility] [place] Respitory Rate 2021-02-21 18:59:00 Memori [facility] Height 2021-02-21 18:59:00 154.94 cm [facility] [place] Weight 2021-02-21 18:59:00 [facility] BMI Calculated 2021-02-21 18:59:00 Memrandi al [place] Procedures Procedure Date / Time Performing Clinician Source Performed PATIENT AGREEMENTS AND 2022-10-10 05:01:00 Doctor Unajaleesaigned, [facility] CONTRACTS [facility] REFERRAL- REQUEST/RESPONSE 2022-09-24 05:01:00 Doctor Eliza , [facility] PATIENT FINANCIAL 2022-08-19 15:42:43 Doctor Eliza, [facility] POLICY [facility] SLEEP STUDY DATA REPORT 2022-07-23 06:01:00 Doctor Eliza, [facility] ASSIGNMENT OF BENEFITS 2022-07-08 18:55:01 Doctor Snehalssigned, [facility] EXTERNAL FIT DNA 2022-06-21 10:34:00 Doctor Eliza, [facility] PULMONARY FUNCTION REPORT 2022-05-24 06:01:00 Doctor Eliza, [facility] EXTERNAL PROVIDER - ADC 2022-03-05 05:01:00 Doctor Eliza, [facility] REFERRAL [facility] ASSIGNMENT OF BENEFITS 2022-01-10 15:14:06 Doctor Unassigned, Un [facility] MAGNESIUM 2021-11-28 15:33:00 Araceli, [facility] BASIC METABOLIC PANEL (NA, 2021-11-28 15:33:00 Miley houston, [facility] K, CL, CO2, GLUCOSE, BUN, [facility] CREATININE, CA) N-TERMINAL PRO-BNP 2021-11-28 15:33:00 Araceli, [facility] Automatic Defibrillator [place] [facility] Cholecystectomy [facility] Defibrillation using [facility] automated external cardiac defibrillator Encounters Start End Encounter Admission Attending Care Care Encounter Source Date/Time Date/Time Type Type Clinicians Facility Department ID 2023-01-15 Outpatient [place], STLMLC STLMLC [id number] Common 09:22:00 Aissatou [id number] [facility] 2022-12-05 Outpatient [place], STLMLC STLMLC [id number] Common 13:29:00 Aissatou 03692 [facility] 2022-10-07 Outpatient [place], STLMLC STLMLC [id number] Common 08:14:00 Aissatou 98167 [facility] 2022-09-18 Outpatient [place], STLMLC STLMLC [id number] Common 11:42:00 Aissatou 31762 [facility] 2022-09-16 Outpatient [place], STLMLC STLMLC [id number] Common 15:44:00 Aissatou 58112 [facility] 2022-06-18 Outpatient [place], STLMLC STLMLC [id number] Common 12:01:00 Aissatou 73927 [facility] 2022-05-28 Outpatient [place], STLMLC STLMLC [id number] Common 08:32:00 Aissatou 12333 [facility] 2021-11-30 Outpatient [place], STLMLC STLMLC [id number] Common 07:54:00 Aissatou 25401 [facility] 2021-09-05 Outpatient [place], STLMLC STLMLC [id number] Common 10:56:01 Aissatou [facility] 2021-06-13 Outpatient [place], STLMLC STLMLC [id number] Common 14:38:32 Aissatou [facility] 2021-06-13 Outpatient [place], STLMLC STLMLC [id number] Common 14:35:38 Aissatou [facility] 2021-06-13 Outpatient [place], STLMLC STLMLC [id number] Common 14:01:32 Aissatou [facility] 2021-06-13 Outpatient [place], STLMLC STLMLC [id number] Common 13:44:49 Aissatou 55224 [facility] 2021-06-13 Outpatient [place], STLMLC STLMLC [id number] Common 13:27:14 Aissatou 03714 [facility] 2021-06-13 Outpatient [place], STLMLC STLMLC [id number] Common 12:57:09 Aissatou 84829 [facility] 2021-06-13 Outpatient [place], STLMLC STLMLC [id number] Common 12:25:50 Aissatou 10245 [facility] 2021-06-13 Outpatient Millender, STLMLC STLMLC [id number] Common 11:42:20 Aleah 03118 [facility] 2021-06-13 Outpatient Mill[place], STLMLC STLMLC [id number] Common 11:39:36 Aleah 63730 [facility] 2021-06-13 Outpatient Millender, STLMLC STLMLC [id number] Common 11:24:42 Aleah 15287 [facility] 2021-06-13 Outpatient Millender, STLMLC STLMLC [id number] Common 11:08:27 Aleah 84444 [facility] 2023-01-06 2023-01-06 Outpatient R [facility] [id number] Univers 10:00:00 10:00:00 [facility] 2022-12-23 2022-12-23 Outpatient R TAMIKO [facility] [id number] Univers 13:40:00 13:40:00 VAUGHN [facility] 2022-12-09 2022-12-09 Outpatient R KNOTT [facility] [id number] Univers 13:40:00 13:40:00 GIOVANY [facility] 2022-11-12 2022-11-12 Outpatient R TOYA [facility] [id number] Univers 09:30:00 09:30:00 SOPHIE [facility] 2022-11-12 2022-11-12 Refill Kaela CHILDERS 1.2.840.114 10 [id number] Univers 00:00:00 00:00:00 Colton, PEDIATRIC 350.1.13.10 it[place] of [place] [id number] [facility] PRIMARY 059 [facility] 2022-10-10 2022-10-10 Office Papa [facility] 1.2.840.114 [id number] Univers 11:15:00 11:15:00 Visit Mireya SPECIALTY 350.1.13.10 it[place] of [place] C[place] AT [phone] La stephanie [address] 2022-10-10 2022-10-10 Outpatient William ANGEL [facility] [id number] Univers 11:15:00 11:13:57 MIREYA ity [facility] 2022-10-10 2022-10-10 Orders Doctor DEL TORO 1.2.840.114 [id number] Univers 00:00:00 00:00:00 Only Unassigned, BROOK 350.1.13.10 ity of [place] [facility] 4.2.7.2.686 Arnulfo as [phone] [facility] [address] [place] 2022-10-03 2022-10-03 Office Ju [facility] 1.2.840.114 [id number] Univers 09:40:00 10:16:13 Visit Kadi SANTANA 350.1.13.10 ity of [place] [id number] La dical NAL 059 [facility] 2022-10-03 2022-10-03 Outpatient R JU KADIOpal [facility] [id number] Univers 09:40:00 10:16:13 JUALTAGRACIADUANEABEBA [facility] 2022-10-02 2022-10-02 Office James [facility] 1.2.914.429 [id number] Univers 11:30:00 12:00:00 Visit Sigifredo SANTANA 350.1.13.10 ity of [facility] 4.2.7.2.[place] [id number] [facility] 085 [facility] 2022-10-02 2022-10-02 Outpatient R SIGIFREDO RAMIREZ [facility] [id number] Univers 11:30:00 11:30:00 SIGIFREDO RAMIREZ [facility] 2022-10-01 2022-10-01 Telephone ItWundrbar [facility]IT 1.2.840.11 4 [id number] Univers 00:00:00 00:00:00 [place], Y HEALTH 350.1.13.10 ity of [place] CL[place]ICS [place] [id number] 2022-09-30 2022-09-30 Telephone Rosangela SOLIS 1.2.840.114 [id number] Univers 00:00:00 00:00:00 , Marychuy ORTIZ 350.1.13.10 ity of [place] [id number] [address] 2022-09-30 2022-09-30 Telephone [employer]- UNIVERSIT 1.2.840.11 4 [id number] Univers 00:00:00 00:00:00 [place], Y HEALTH 350.1.13.10 ity of [place] CL[place]ICS [place]2.[place] [id number] [address] 2022-09-30 2022-09-30 Telephone ItWundrbar UN[facility]ERSIT 1.2.840.11 4 [id number] Univers 00:00:00 00:00:00 Derek Segura HEALTH 350.1.13.10 ity of [place] [facility] 4.2.7.2.[place] [phone] [facility] [address] [place] 2022-09-27 2022-09-27 Tax Advisor Lab, Ang - Db [facility] 1.2.840.1 14 [id number] Univers 15:30:00 15:45:00 Visit PanAndrews [facility] 350.1.13. 10 [place] 4.2.7.2.686 Arnulfo as BENJAMIN?BLEA [phone] [address] MEDICAL OFFICE BUILDING 2022-09-27 2022-09-27 Outpatient R ANDREWS PERLA [facility] [id number] Univers 14:40:00 15:20:20 ANDREWS PERLA [facility] 2022-09-27 2022-09-27 Office Pan [facility] 1.2.840.114 [id number] Univers 14:40:00 15:20:20 Visit [facility] 350.1.13.10 it[place] 4.2.7.2.686 Arnulfo as BENJAMIN?BLEA [id number] [address] MEDICAL OFFICE BUILDING 2022-09-24 2022-09-24 Orders Doctor ALVERTO 1.2.840.114 [id number] Univers 00:00:00 00:00:00 Only Unassigned, BROOK 350.1.13.10 ity of [place] [facility] 4.2.7.2.686 Arnulfo as [id number] [facility] [address] [place] 2022-09-23 2022-09-23 Telephone Pan [facility] 1.2.840.114 [id number] Univers 00:00:00 00:00:00 [facility] 350.1.13.10 ity of [place] [facility] 4.2.7.2.686 Arnulfo as BENJAMIN?BLEA [phone] [address] MEDICAL OFFICE BUILDING 2022-09-11 2022-09-11 Telephone [facility] 1.2.840.114 [id number] Univers 00:00:00 00:00:00 [place], HEALTH 350.1.13.10 ity of [place] [id number] [facility] MEDICAL [address] OFFICE BUILDING 2022-08-30 2022-08-30 Telephone Rosangela BRUNERCarolynn 1.2.840.114 [id number] Univers 00:00:00 00:00:00 , Marychuy CLEMENTEY 350.1.13.10 ity of [place] [id number] [facility] 086 Branch 2022-08-28 2022-08-28 Outpatient SOURAV CORONADO [facility] [id number] [place] 09:20:00 09:20:00 [id number] 2022-08-19 2022-08-19 Office [facility] 1.2.817.659 [id number] Univers 11:30:00 11:30:00 Visit Afaq [place] 350.1.13.10 i ty of [facility] 4.2.7.2.[place] [id number] La dical [facility]9 Branch [facility] 2022-08-19 2022-08-19 Outpatient R JOHNATHAN [facility] [id number] Univers 11:30:00 11:14:01 AFAQ ity of [facility] 2022-08-19 2022-08-19 Orders Doctor ALVERTO 1.2.840.114 [id number] Univers 00:00:00 00:00:00 Only Unassigned, BROOK 350.1.13.10 ity of [place] [facility] 4.2.7.2.686 Arn[place]fo as [id number] [facility] 009 [address] 2022-08-18 2022-08-18 Refill Kaela CHILDERS 1.2.840.114 [id number] Univers 00:00:00 00:00:00 Colton, PEDIATRIC 350.1.13.10 ity of [place] [id number] [facility] PRIMARY 059 Branch CARE CLINIC 2022-08-07 2022-08-07 Outpatient R SIGIFREDO RAMIREZ [facility] [id number] Univers 09:30:00 09:30:00 SIGIFREDO RAMIREZ ity [facility] 2022-08-03 2022-08-03 Refill Kaela CHILDERS 1.2.840.114 10 [id number] Univers 00:00:00 00:00:00 [place], PEDIATRIC 350.1.13.10 it[place] of [place] [id number] [facility] 059 [facility] 2022-07-23 2022-07-23 Tax Advisor 1, [facility] Sleep Lab Bed [facility] 1. 2.840.114 [id number] Univers 20:00:00 22:30:00 Visit Sigifredo Ramirez 350.1.13. 10 ity of [place].2.7.2.[place] C[place] [id number] [place] [address] Branch 2022-07-23 2022-07-23 Outpatient R NENA RAMIREZDERadha [facility] [id number] Univers 20:00:00 20:00:00 SIGIFREDO RAMIREZ ity [facility] 2022-07-23 2022-07-23 Orders Doctor ALVERTO 1.2.840.114 [id number] Univers 00:00:00 00:00:00 Only Unassigned, BROOK 350.1.13.10 ity of [place] [facility] 4.2.7.2.686 Arnulfo as [id number] [facility] 009 Branch 2022-07-15 2022-07-15 Telephone Kaela CHILDERS 1.2.840.114 [id number] Univers 00:00:00 00:00:00 [place], PEDIATRIC 350.1.13.10 ity of [place] [id number] [facility] 059 [facility] 2022-07-09 2022-07-09 Letter Feliberto, [facility] 1.2.840.114 [id number] Univers 00:00:00 00:00:00 (Out) General HEALTH 350.1.13.10 it y of Cardiology [place]2.7.2.[place] [phone] [place] [address] Branch OFFICE BUILDING 2022-07-08 2022-07-08 Office Iturradrian- ALVARADO 1.2.840.114 [id number] Univers 13:00:00 13:30:00 Visit [place], PEDIATRIC 350.1.13.10 ity of [place] [id number] [facility] PRIMARY 9 Branch CARE CLINIC 2022-07-08 2022-07-08 Outpatient R RODRIGO- [facility] [id number] Univers 13:00:00 13:00:00 COLTON, ity of [facility] 2022-07-08 2022-07-08 Orders Doctor ALVERTO 1.2.840.114 [id number] Univers 00:00:00 00:00:00 Only Unassigned, BROOK 350.1.13.10 ity of [place] [facility] 4.2.7.2.686 Arn[place]fo as [id number] [place] [address] Branch 2022-07-08 2022-07-08 Telephone [employer]- UNIVERSIT 1.2.840.11 4 [id number] Univers 00:00:00 00:00:00 [place], HEALTH 350.1.13.10 ity of [facility] 4.2.7.2.[place] [id number] [place] [address] Branch 2022-06-06 2022-06-06 (TEL) STLC STLMLC [id number] Co mmon 00:00:00 00:00:00 [facility] 2022-06-05 2022-06-05 (TEL) STLMLC STLMLC [id number] Co mmon 00:00:00 00:00:00 [facility] 2022-05-30 2022-05-30 Telephone Iturrizaga- UNIVERSIT 1.2.840.11 4 [id number] Univers 00:00:00 00:00:00 [place], Y HEALTH 350.1.13.10 ity of [facility] CLINICS 4.2.7.2.[place] [id number] [address] 2022-05-302022-05-[address]- UNIVERSIT 1.2.840.114 [id number] Univers 00:00:00 00:00:00 Colton Y HEALTH 350.1.13.10 ity of [place] CLINICS 4.2.7.2.[place] [id number] [facility] 414 Branch 2022-05-30 2022-05-30 OFFICE [facility] [id number] Co mmon 00:00:00 00:00:00 VISIT Elieser ESTAB PT - CHI LEVEL 4 [facility] 2022-05-30 2022-05-30 SUB ANNUAL [facility] [id number] Common 00:00:00 00:00:00 MCR Spirit WELLNESS - CHI VISIT [facility] 2022-05-29 2022-05-29 Telephone Kaela CHILDERS 1.2.840.114 [id number] Univers 00:00:00 00:00:00 [place], PEDIATRIC 350.1.13.10 ity of [place] [id number] [facility] PRIMARY 059 Branch CARE CLINIC 2022-05-24 2022-05-24 Tax Advisor Testing, [facility] Pulmonary Func tion [facility]ERSIT 1.2.840.114 [id number] Univers 09:30:00 11:31:11 Visit Miguel Ford [facility] 350.1.13. 10 ity of CLINICS 4.2.7.2.[place] [id number] [facility] 083 Branch 2022-05-24 2022-05-24 Outpatient William FORD [facility] [id number] Univers 09:30:00 09:30:00 MIGUEL louie of [facility] 2022-05-24 2022-05-24 Orders Doctor DEL TORO 1.2.840.114 [id number] Univers 00:00:00 00:00:00 Only Unassigned, BROOK 350.1.13.10 ity of [place] [facility] 4.2.7.2.686 Arnulfo as [id number] [facility] 009 Branch 2022-04-26 2022-04-26 Outpatient [facility] [id number] Univers 09:30:00 09:30:00 page SEGURAderek [facility] 2022-04-10 2022-04-10 Office James [facility] 1.2.117.256 [id number] Univers 11:00:00 11:30:00 Visit Sigifredo SANTANA 350.1.13.10 ity of [place] 4.[place].7.2.[place] [id number] [place] 087[place] [facility] 2022-04-10 2022-04-10 Outpatient R SIGIFREDO RAMIREZ [facility] [id number] Univers 11:00:00 11:00:00 SIGIFREDO RAMIREZ [facility] 2022-04-03 2022-04-03 Outpatient R [facility] [id number] Univers 08:17:34 23:59:00 jacy SEGURA [facility] 2022-03-21 2022-03-21 Telephone [facility] 1.2.840.11 [id number] Univers 00:00:00 00:00:00 Col[place] [facility] 350.1.13.10 ity of [facility] 4.2.7.2.[place] [id number] [facility] [address] [place] 2022-03-19 2022-03-19 Outpatient R [facility] [id number] Univers 09:00:00 23:59:00 jacy SEGURA of [facility] 2022-03-06 2022-03-06 Outpatient R SIGIFREDO RAMIREZ [facility] [id number] Univers 14:00:00 14:00:00 NENA [facility]ZDERadha [facility] 2022-03-05 2022-03-05 Orders Doctor DEL TORO 1.2.840.114 [id number] Univers 00:00:00 00:00:00 Only Unassigned, BROOK 350.1.13.10 ity of [place] [facility] 4.2.7.2.686 Arnulfo as [id number] [facility] 009 Branch 2022-03-04 2022-03-04 (TEL) STLMLC STLMLC [id number] Co mmon 00:00:00 00:00:00 [facility] 2022-03-04 2022-03-04 (TEL) STLMLC STLMLC [id number] Co mmon 00:00:00 00:00:00 [facility] 2022-02-25 2022-02-25 Outpatient R [facility] [id number] Univers 13:30:00 13:53:55 COLTON, ity of WOOD [facility] 2022-02-25 2022-02-25 Office Kaela CHILDERS 1.2.840.114 [id number] Univers 13:30:00 13:53:55 Visit Colton PEDIATRIC 350.1.13.10 ity of [place] [id number] [address] 2022-02-25 2022-02-25 Telephone Kaela CHILDERS 1.2.840.114 [id number] Univers 00:00:00 00:00:00 [place], PEDIATRIC 350.1.13.10 ity of [place] [id number] [address] 2022-02-13 2022-02-13 (TEL) STLMLC STLMLC [id number] Co mmon 00:00:00 00:00:00 [facility] 2022-02-06 2022-02-06 (TEL) STLMLC STLMLC [id number] Co mmon 00:00:00 00:00:00 [facility] 2022-01-24 2022-01-24 OFFICE STLMLC STLMLC [id number] Co mmon 00:00:00 00:00:00 VISIT [facility] LEVEL 4 [facility] 2022-01-23 2022-01-23 (TEL) STLMLC STLMLC [id number] Co mmon 00:00:00 00:00:00 [facility] 2022-01-11 2022-01-11 (TEL) STLMLC STLMLC [id number] Co mmon 00:00:00 00:00:00 [facility] 2022-01-10 2022-01-10 Outpatient R RADIOLOGY [facility] [id number] Univers 10:15:43 23:59:00 ity of [facility] 2022-01-10 2022-01-10 Hospital Radiology [facility] 1.2.840.114 [id number] Univers 10:15:43 23:59:00 Encounter MAX 350.1.13.10 ity of [place].2.[place] [id number] [facility] [address] 2022-01-10 2022-01-10 Tax Advisor Arlette, Lena Lab Main [facility] 1.2.8 40.114 [id number] Univers 11:15:00 11:30:00 Visit Milo Bennett 350.1.13.10 it[place] of [place].2.[place] [facility] [id number] La dical [facility] 353 [address] BUILDING 2022-01-10 2022-01-10 Orders Doctor ALVERTO 1.2.840.114 [id number] Univers 00:00:00 00:00:00 Only Unassigned, BROOK 350.1.13.10 ity of [place] [facility] 4.2.7.2.686 Arnulfo as [id number] [facility] 009 [address] 2022-01-01 2022-01-01 [facility]phone [facility] 1.2.840.114 [id number] Univers 00:00:00 00:00:00 ARACELIS Segura 350.1.13.10 ity of [place].2.[place] [id number] [facility] 414 [address] OFFICE BUILDING 2021-12-19 2021-12-19 Outpatient R RADIOLOGY [facility] RAD [id number] Univers 10:20:00 10:20:00 ity of [facility] 2021-12-04 2021-12-04 Telephone [facility] STEFANIA 1.2.840.11 [id number] Univers 00:00:00 00:00:00 Derek Segura 350.1.13.10 ity of [place] [facility] 4.2.7.2.[place] [id number] [facility] [address] 2021-12-04 2021-12-04 OFFICE [facility] [id number] Co mmon 00:00:00 00:00:00 VISIT Elieser ESTAB PT - CHI LEVEL 4 [facility] 2021-11-28 2021-11-28 Tax Advisor Arlette, Lena Lab Main [facility] 1.2.8 40.114 [id number] Univers 10:00:00 10:15:00 Visit [place] 3 50.1.13.10 ity of [place] [id number] [address] 2021-11-28 2021-11-28 Outpatient R [facility] [id number] Univers 10:00:00 10:00:00 jacy SEGURA [facility] 2021-11-27 2021-11-27 Telephone Kaela CHILDERS 1.2.840.114 [id number] Univers 00:00:00 00:00:00 [place], PEDIATRIC 350.1.13.10 it[place] of [place] [id number] [address] 2021-10-31 2021-10-31 (TEL) [facility] [id number] Co mmon 00:00:00 00:00:00 Spirit - CHI [facility] 2021-10-19 2021-10-19 Outpatient [facility] [id number] Univers 11:00:00 11:00:00 MIREYA ity [facility] 2021-10-18 2021-10-18 Telephone Kaela CHILDERS 1.2.840.114 [id number] Univers 00:00:00 00:00:00 [place], PEDIATRIC 350.1.13.10 ity of [place] [id number] [address] 2021-10-18 2021-10-18 Telephone Kaela CHILDERS 1.2.840.114 [id number] Univers 00:00:00 00:00:00 [place], PEDIATRIC 350.1.13.10 [place] [id number] [address] 2021-09-04 2021-09-04 Outpatient R ABEBA [facility] [id number] Univers 14:00:00 17:37:46 FE ity of [facility] 2021-09-04 2021-09-04 Office [facility] 1.2.840.114 [id number] Univers 14:00:00 17:37:46 Visit Fe SPECIALTY 350.1.13.10 [place] [phone] [place] [address] 2021-09-04 2021-09-04 Orders Doctor ALVERTO 1.2.840.114 [id number] Univers 00:00:00 00:00:00 Only Unassigned, BROOK 350.1.13.10 ity of [place] [facility] 4.2.7.2.686 [place] as [phone] [place] [id number] [address] 2021-09-04 2021-09-04 OFFICE [facility] [id number] Co mmon 00:00:00 00:00:00 VISIT Elieser COPE PT - CHI LEVEL 4 [facility] 2021-09-03 2021-09-03 Telephone Kaela CHILDERS 1.2.840.114 [id number] Univers 00:00:00 00:00:00 [place], PEDIATRIC 350.1.13.10 [place] [id number] [address] 2021-08-31 2021-08-31 [facility] 1.2.840.114 [id number] Univers 00:00:00 00:00:00 [place], HEALTH 350.1.13.10 [place] [id number] [facility] [address] OFFICE BUILDING 2021-08-29 2021-08-29 Outpatient R SARAI [facility] [id number] Univers 09:00:00 10:28:37 MANDI [facility] 2021-08-29 2021-08-29 Nurse Nurse, Alexander CHILDERS 1.2.84 0.114 [id number] Univers 09:00:00 09:20:00 Visit Unknown, Attending PEDIATRIC 350.1.13. 10 [place] [phone] [facility] 2021-08-29 2021-08-29 Outpatient R DANYELLE, [facility] [id number] Univers 09:00:00 09:00:00 ATTENDING [facility] 2021-08-24 2021-08-24 Outpatient [facility] 233 [id number] Univers 16:30:00 16:50:59 [place] derek [facility] 2021-08-24 2021-08-24 Office Itsantiago CHILDERS [id number] Univers 16:30:00 16:50:59 Visit [place], PEDIATRIC 350.1.13.10 ity of [place] [phone] [facility] 059 [facility] 2021-07-30 2021-07-30 (TEL) [facility] [id number] Co mmon 00:00:00 00:00:00 [facility] 2021-07-24 2021-07-24 Ambulatory nullFlavo MNA [id number] Memoria 16:30:00 16:30:00 Pre-Reg r Neurology 05 l Isael Villaseñor 2021-07-24 2021-07-24 Ambulatory nullFlavo MNA [id number] Memoria 16:30:00 16:30:00 Pre-Reg r Neurology 05 l Isael Villaseñor 2021-07-24 2021-07-24 Outpatient MHIE APPLE [id number] Memoria 10:30:00 10:30:00 05 l Kasi 2021-07-24 2021-07-24 Outpatient JEANNIE Villa [facility] [id number] 10:30:00 10:30:00 Regulo Garcia 2021-07-12 2021-07-12 [facility] [id number] Univers 00:00:00 00:00:00 Sendil Suellen SANTANA 350.1.13.10 ity of [facility] [place] [phone] [place] dicwv NAL [address] [place] [address] 2021-07-06 2021-07-06 [facility] [id number] Univers 00:00:00 00:00:00 Sendil Suellen SANTANA [id number] ity of [facility] [place] [phone] La dical NAL [address] [place] [address] 2021-07-05 2021-07-05 [facility] [id number] Univers 08:54:58 23:59:00 SENDIL ity of [facility] 2021-07-05 2021-07-[address] [facility] [id number] [id number] Univers 08:54:58 23:59:00 Encounter Senddaron SANTANA 350.1.13.10 ity of [facility] [place] [phone] [facility] 2021-07-05 2021-07-05 [facility] [id number] Univers 09:00:00 09:00:00 SENDIL ity [facility] 2021-06-25 2021-06-25 [facility] [id number] [id number] Univers 00:00:00 00:00:00 Sendil Suellen SANTANA 350.1.13.10 ity of [facility] 4.[place] [phone] La dicwv NAL [address] [place] [address] 2021-06-19 2021-06-19 [facility] 1.2.840.114 [id number] Univers 14:00:00 14:49:22 Visit Joel SANTANA 350.1.13.10 ity [facility] 4.2.7.2.686 Saida COREA [phone] La dical [facility] 059 [facility] 2021-06-19 2021-06-19 Out[facility] [id number] Univers 14:00:00 14:49:22 SENDIL ity [facility] 2021-06-19 2021-06-19 Outpatient R YUE [facility] [id number] Univers 14:00:00 14:49:22 SENDIL ity [facility] 2021-06-19 2021-06-19 Orders Doctor DEL TORO 1.2.840.114 [id number] Univers 00:00:00 00:00:00 Only Unassigned, BROOK 350.1.13.10 ity of [facility] 4.2.7.2.686 Arnulfo as [phone] [address] 2021-06-05 2021-06-05 OFFICE STLMLC STLMLC [id number] Co mmon 00:00:00 00:00:00 VISIT Spirit ESTAB PT - CHI LEVEL 4 [facility] 2021-06-05 2021-06-05 SUB ANNUAL STLMLC STLMLC [id number] Common 00:00:00 00:00:00 MCR Spirit WELLNESS - CHI VISIT [facility] 2021-05-15 2021-05-15 Outpatient R [facility] [id number] Univers 17:00:00 17:00:00 ity of [facility] 2021-05-14 2021-05-14 (TEL) STLMLC STLMLC [id number] Co mmon 00:00:00 00:00:00 Spirit - CHI [facility] 2021-05-14 2021-05-14 OFFICE STLMLC STLMLC [id number] Co mmon 00:00:00 00:00:00 VISIT EST Spir it PT LEVEL 3 - CHI [facility] 2021-05-14 2021-05-14 (TEL) STLMLC STLMLC [id number] Co mmon 00:00:00 00:00:00 [facility] 2021-04-23 2021-04-24 Outpatient nullFlavo MNA [id number] Memoria 16:00:00 05:59:59 r Neurology 04 l Isael Villaseñor 2021-04-23 2021-04-24 Outpatient nullFlavo MNA [id number] Memoria 16:00:00 05:59:59 r Neurology 04 l Isael Villaseñor 2021-04-23 2021-04-23 Outpatient Daisy RUSTSCHER RUSTSCHER [id number] 10:00:00 23:59:59 Regulo Garland Garcia 2021-04-23 2021-04-23 Outpatient MHIE APPLE [id number] Memoria 10:00:00 10:00:00 Garland Villaseñor 2021-03-30 2021-03-30 (TEL) STLMLC STLMLC [id number] Co mmon 00:00:00 00:00:00 [facility] 2021-03-26 2021-03-26 OFFICE STLMLC STLMLC [id number] Co mmon 00:00:00 00:00:00 VISIT [facility] LEVEL 4 [facility] 2021-03-22 2021-03-23 Outpatient nullFlavo MNA [id number] Memoria 18:00:00 04:59:59 r Neurology 03 radha Villaseñor 2021-03-22 2021-03-23 Outpatient nullFlavo MNA [id number] Memoria 18:00:00 04:59:59 r Neurology 03 radha Villaseñor 2021-03-22 2021-03-22 Outpatient Daisy RUSTSCHER RUSTSCHER [id number] 13:00:00 23:59:59 Regulo Lilo Garcai 2021-03-22 2021-03-22 Outpatient MHIE MHIE [id number] Memoria 13:00:00 13:00:00 Lilo Villaseñor 2021-03-21 2021-03-21 Ambulatory nullFlavo MNA [id number] Memoria 19:15:00 19:15:00 Pre-Reg r Neurology 02 radha Villaseñor 2021-03-21 2021-03-21 Ambulatory nullFlavo MNA [id number] Memoria 19:15:00 19:15:00 Pre-Reg r Neurology 02 radha Villaseñor 2021-03-21 2021-03-21 Ambulatory nullFlavo MNA [id number] Memoria 15:30:00 15:30:00 Pre-Reg r Neurology 01 radha Villaseñor 2021-03-21 2021-03-21 Ambulatory nullFlavo MNA [id number] Memoria 15:30:00 15:30:00 Pre-Reg r Neurology 01 radha Villaseñor 2021-03-21 2021-03-21 Outpatient MHIE MHIE [id number] Memoria 14:15:00 14:15:00 02 radha Villaseñor 2021-03-21 2021-03-21 Outpatient ARIANNE VillaMISCHER MHMISCHER [id number] 14:15:00 14:15:00 Regulo 02 Jose 2021-03-21 2021-03-21 Outpatient MHIE MHIE [id number] Memoria 10:30:00 10:30:00 01 radha Villaseñor 2021-03-21 2021-03-21 Outpatient ARIANNE VillaMISCHER MHMISCHER [id number] 10:30:00 10:30:00 Regulo 01 Jose 2021-03-13 2021-03-13 (TEL) STLMLC STLMLC [id number] Co mmon 00:00:00 00:00:00 [facility] 2021-03-07 2021-03-07 (TEL) STLMLC STLMLC [id number] Co mmon 00:00:00 00:00:00 Spirit - CHI [facility] 2021-02-26 2021-02-26 OFFICE STLMLC STLMLC [id number] Co mmon 00:00:00 00:00:00 VISIT [facility] PT - CHI LEVEL 4 [facility] 2021-02-21 2021-02-22 Outpatient nullFlavo MNA [id number] Memoria 18:15:00 04:59:59 r Neurology 00 radha Villaseñor 2021-02-21 2021-02-22 Outpatient nullFlavo MNA [id number] Memoria 18:15:00 04:59:59 r Neurology 00 l Isael Villaseñor 2021-02-21 2021-02-21 Outpatient Daisy, ARIANNEMISCHER RUSTSCHER [id number] 13:15:00 23:59:59 Regulo Kenneth Garcia 2021-02-21 2021-02-21 Outpatient MHIE ARIANNEIE [id number] Juju 13:15:00 13:15:00 00 l Kasi 2021-01-18 2021-01-18 Outpatient STLMLC STLMLC [id number] Common 00:00:00 00:00:00 [facility] 2020-12-20 2020-12-20 Outpatient STLMLC STLMLC [id number] Common 00:00:00 00:00:00 [facility] 2020-12-01 2020-12-01 Outpatient STLMLC STLMLC [id number] Common 00:00:00 00:00:00 [facility] 2020-11-30 2020-11-30 Outpatient STLMLC STLMLC [id number] Common 00:00:00 00:00:00 [facility] 2020-11-21 2020-11-21 Outpatient STLMLC STLMLC [id number] Common 00:00:00 00:00:00 [facility] 2020-10-18 2020-10-18 Outpatient STLMLC STLMLC [id number] Common 00:00:00 00:00:00 [facility] 2020-10-06 2020-10-06 Outpatient STLMLC STLMLC [id number] Common 00:00:00 00:00:00 [facility] 2020-09-25 2020-09-25 Outpatient STLMLC STLMLC [id number] Common 00:00:00 00:00:00 [facility] 2020-09-15 2020-09-15 Outpatient Yan_W MMG MMG [id number] [place] 07:15:00 07:15:00 [facility] 2020-09-14 2020-09-14 Outpatient Yan_W MMG MMG [id number] [place] 03:44:00 03:44:00 0429 [facility] 2020-09-14 2020-09-14 Outpatient Yan_W MMG MMG [id number] [place] 03:44:00 03:44:00 0430 [facility] 2020-09-14 2020-09-14 SHUN Garcia [place] - [id number] [place] 00:00:00 00:00:00 MD: Ck [facility], [facility] [address], [facility], Otolaryngol [place] ogy-[facility] [phone] , Ph. 2020-09-13 2020-09-13 Outpatient STLMLC STLMLC [id number] Common 00:00:00 00:00:00 [facility] 2020-09-13 2020-09-13 Outpatient STLMLC STLMLC [id number] Common 00:00:00 00:00:00 [facility] 2020-09-08 2020-09-08 Outpatient Yan_W MMG G [id number] [place] 02:57:00 02:57:00 0423 Medical [facility] 2020-09-05 2020-09-05 Outpatient STLMLC STLMLC [id number] Common 00:00:00 00:00:00 [facility] 2020-06-01 2020-06-01 Outpatient Yan_W MMG MMG [id number] [place] 09:10:00 09:10:00 0203 [facility] 2020-05-31 2020-05-31 Outpatient Yan_W MMG MMG [id number] [place] 09:49:00 09:49:00 0113 [facility] 2020-05-31 2020-05-31 SHUN Garcia [place] - [id number] [place] 00:00:00 00:00:00 : Ck [facility], [facility] Group [address], [facility], Otolaryngol [place] og-[facility] [address] , Ph. 2020-04-05 2020-04-05 Outpatient Yan_W MMG MMG [id number] [place] 02:30:00 02:30:00 1118 [facility] 2020-03-13 2020-03-13 Outpatient Yan_W MMG MMG [id number] [place] 09:57:00 09:57:00 1031 [facility] 2020-03-13 2020-03-13 Outpatient Yan_W MMG MMG [id number] [place] 09:56:00 09:56:00 1026 [facility] 2020-03-07 2020-03-07 Outpatient Yan_W MMG MMG [id number] [place] 02:52:00 02:52:00 1020 [facility] Group 2020-03-07 2020-03-07 Outpatient Yan_W MMG MMG [id number] [place] 02:52:00 02:52:00 1025 Medical Group 2020-03-07 2020-03-07 Mansoor Lemus, MMG [place] - [id number] [place] 00:00:00 00:00:00 MD: Ck [facility], Network Group [address], [facility], Otolaryngol [facility] [phone] , Ph. 2020-02-29 2020-02-29 Outpatient Yan_W MMG MMG [id number] [place] 12:29:00 12:29:00 1013 [facility] 2019-12-27 2019-12-27 [facility] [id number] Common 11:15:00 11:15:[address] [facility] 2019-12-27 2019-12-27 Out[facility] [id number] Common 09:19:00 09:19:00 t [facility] Sp[address] [facility] 2019-10-26 2019-10-26 Outpatient [facility] [id number] Common 08:15:00 08:15:00 t [facility] [address] [facility] 2019-10-20 2019-10-20 Outpatient [facility] [id number] Common 23:40:00 23:40:00 t [facility] it Road [facility] 2019-10-20 2019-10-20 Outpatient [facility] [id number] Common 14:40:00 14:40:[address] [facility] 2019-08-19 2019-08-19 Out[facility] [id number] Common 11:54:00 11:54:[address] [facility] 2019-07-25 2019-07-25 Outpatient [facility] [id number] Common 13:11:00 13:11:[address] [facility] 2019-07-20 2019-07-20 Outpatient [facility] [id number] Common 11:00:00 11:00:[address] [facility] 2019-04-24 2019-04-24 Outpatient [facility] [id number] Common 03:26:00 03:26:[address] [facility] 2019-04-20 2019-04-20 Outpatient [facility] [id number] Common 09:40:00 09:40:[address] [facility] 2019-03-22 2019-03-22 Outpatient mayelazzPetty tristinPetty [id number] Common 14:55:00 14:55:00 Schyessicaler Januszler Sp loren DO [facility] 2019-01-19 2019-01-19 Out[facility] [id number] Common 14:40:00 14:40:[address] [facility] 2018-11-04 2018-11-04 Outpatient [facility] [id number] Common 12:03:00 12:03:[address] [facility] 2018-08-26 2018-08-26 Out[facility] [id number] Common 11:20:00 11:20:[address] [facility] 2018-08-14 2018-08-14 Outpatient [facility] [id number] Common 14:30:00 14:30:[address] [facility] 2018-08-03 2018-08-03 Outpatient [facility] [id number] Common 12:32:00 12:32:[address] [facility] 2018-06-01 2018-06-01 Outpatient [facility] [id number] Common 10:15:00 10:15:[address] [facility] 2018-03-02 2018-03-02 Outpatient [facility] [id number] Common 09:00:00 09:00:[address] [facility] 2018-01-30 2018-01-30 Outpatient [facility] [id number] Common 11:30:00 11:30:[address] [facility] 2018-01-20 2018-01-20 Outpatient [facility] [id number] Common 09:46:00 09:46:[address] [facility] 2018-01-13 2018-01-13 Out[facility] [id number] Common 10:00:00 10:00:00 [facility] 2017-12-25 2017-12-25 Out[facility] [id number] Common 10:56:00 10:56:[address] [facility] 2017-12-09 2017-12-09 Outpatient [facility] [id number] Common 21:03:00 21:03:[address] [facility] 2017-12-09 2017-12-09 Outpatient [facility] [id number] Common 09:45:00 09:45:[address] [facility] 2017-12-03 2017-12-03 Outpatient [facility] [id number] Common 10:45:00 10:45:[address] [facility] Family Medicine [facility] 2017-09-05 2017-09-05 Outpatient Tiffanie Morenot [id number] Common 16:00:00 16:00:00 t Urgent Urgent Care S pirit Care [facility] 2017-07-11 2017-07-11 Outpatient Yahaira CORONADO, [facility] [id number] 17:58:00 17:58:00 [facility] 2015-08-10 2015-08-10 Outpatient SOURAV CORONADO [facility] [id number] [place] 17:02:00 17:02:00 [id number] [facility] 2015-04-20 2015-04-21 Outpatient SOURAV CORONADO [facility] [id number] [place] 05:46:00 13:55:00 [id number] [facility] 2015-04-03 2015-04-03 Outpatient SOURAV CORONADO [facility] [id number] [place] 09:00:00 09:00:00 [id number] [facility] 2014-12-12 2014-12-12 Outpatient SOURAV CORONADO [facility] [id number] [place] 10:22:00 10:22:00 [id number] [facility] 2014-11-23 2014-11-23 Outpatient SOURAV CORONADO [facility] [id number] [place] 16:15:00 16:15:00 [id number] [facility] 2014-08-09 2014-08-09 Outpatient SOURAV CORONADO [facility] [id number] [place] 12:50:00 12:50:00 [id number] [facility] Results Test Description Test Time Test Comments Results Result Comments Source EXTERNAL FIT DNA 2022-06-21 10:34:00 Test Item Value Reference Range Interpretation Comme nts CHENCHO (test code = Test Result Negative Negative ? 06/21/2022 4:34 AM MULTIPLE WIRE SAWYER EXACT CHENCHODoubleMap (CLIA #:[id number]) ?Comment: Fo und in Care EveryWhere/Epic. 05/30/2022 Community Orders [facility] ([id number])? [address]? [place] [address]? Aissatou Tapia, NIKOS? [address] [facility]? [place] [address]? ? Colon cancer screening (Pr imary Dx) [...] w ith both Cologuard and colonoscopy. (Tito T. et al, N Engl J Med 2014;370(14):7461-8942) The normal value (reference ra nge) for this assay is negative. COLOGUARD RE-SCREENING RECOMME NDATION: Periodic colorectal cancer screening is an important p art of preventive healthcare for asymptomatic individuals at average risk for colorectal cancer. ?Following a negative [place] guard result, the [place] Cancer Society and U.S. Multi-Soc iety Task Force screening guidelines recommend a Cologuard re-sc reening interval of 3 years. References: [place] Cancer Socie ty Guideline for Colorectal Cancer Screening: https://www.cancer.org/cancer/earyv-jwcelp-pvtlcm/dete ction-diagn osis-staging/acs-recommendations.html.; Curtis CARRILLO, Enzo BORJA, Trisha GarciaK, Colorectal Cancer Screening: Recommendati ons for Physicians and Patients from the U.S. Multi-Society Ta sk Force on Colorectal Cancer Screening , Am J Gastroenterology 20 17; 112:5939-4129. Lab Normal Interpretation (test code = 99736-0) [facility] (66214)(NA, K, CL, CO2, GLUCOSE, BUN, CREATININE, CA)2021-11-28 17:43:49 Test Item Value Reference Range Interpretation Comments NA (test code = 141 mmol/L 135-145 7049921246) K (test code = 3.6 mmol/L 3.5-5 9732260074) CL (test code = 104 mmol/L 98-108 0142382590) CO2 TOTAL (test code = 28 mmol/L 23-31 1608038556) AGAP (test code = 2-16 5410371542) BUN (test code = 15 mg/dL 7-23 6604468990) GLUCOSE (test code = 238 mg/dL 70-110 H 6382814660) CREATININE (test code = 0.52 mg/dL 0.5-1.04 8464875502) CALCIUM (test code = 8.6 mg/dL 8.6-10.6 7556047769) eGFR (test code = mL/min/1.73m2 3838034243) CHENCHO (test code = CHENCHO) Association of [...] tests). Lab Interpretation Abnormal (test code = 33536-2) [facility]MINAL [id number] 17:36:04 Test Item Value Reference Range Interpretation Comments NT-proBNP (test code 977 pg/mL See_Comment H [Autom ated = [id number]) message] The system which generated this result transmitted reference range : <=125. The reference range was not used to interpret this result as normal/abnormal . CHENCHO (test code = CHENCHO) Biotin has been reported to cause a negative bias, interpret results relative to patient's use of biotin. Lab Interpretation Abnormal (test code = 98164-3) [facility] Worth[facility]NESIUM2022-07-13 17:29:44 Test Item Value Reference Range Interpretation Comments MAGNESIUM (test code = 1200414684) 1.8 mg/dL 1.7-2.4 Lab Interpretation (test code = Normal 29478-5) [facility] Worth[facility]MOGLOBIN [id number] 00:00:00 Test Item Value Reference Range Interpretation Comments A1C (test code = 4548-4) 6.3 HEMOGLOBIN [id number] 00:00:00 Test Item Value Reference Range Interpretation Comments A1C (test code = 4548-4) 6.3 CHEM [id number] 12:55:00 Test Item Value Reference Range Interpretation Comments A/G Ratio (test code = A/G Ratio) 1.2 1.0-2.5 [facility] AllianceNeighbortree.comCHEM [id number] 12:55:00 Test Item Value Reference Range Interpretation Comments Bili Total (test code = Bili Total) 0.6 0.2-1.2 [facility] AllianceannCHEM [id number] 12:55:00 Test Item Value Reference Range Interpretation Comments Alk Phos (test code = Alk Phos) 59 37-153 [facility] [id number] 12:55:00 Test Item Value Reference Range Interpretation Comments ASPARTATE TRANSAMINASE (test code = 18 10-35 ASPARTATE TRANSAMINASE) [facility] [id number] 12:55:00 Test Item Value Reference Range Interpretation Comments ALANINE AMINOTRANSFERASE (test code = 23 6-29 ALANINE AMINOTRANSFERASE) [facility] AllianceGdvgyzkVQFBBHCAYX4655-40-51 12:55:00 Test Item Value Reference Range Interpretation Comments WBC X 10x3 (test code = WBC X 10x3) 4.8 3.8-10.8 [place] 283611-10-07 12:55:00 Test Item Value Reference Range Interpretation Comments RBC X 10x6 (test code = RBC X 10x6) 4.50 3.80-5.10 [place] [id number] 12:55:00 Test Item Value Reference Range Interpretation Comments Hgb (test code = Hgb) 12.1 11.7-15.5 [place] 283611-10-07 12:55:00 Test Item Value Reference Range Interpretation Comments Monocytes # (test code = Monocytes #) 350 200-950 [facility] ResourcesXpktclqIBEQHXVXHH8016-61-98 12:55:00 Test Item Value Reference Range Interpretation Comments Hct (test code = Hct) 37.8 35.0-45.0 [place] 283611-10-07 12:55:00 Test Item Value Reference Range Interpretation Comments MCV (test code = MCV) 84.0 80.0-100.0 [place] 283611-10-07 12:55:00 Test Item Value Reference Range Interpretation Comments MCH (test code = MCH) 26.9 pg 27.0-33.0 [facility] ResourcesWqtgeimNCFSYMBTXM8946-64-43 12:55:00 Test Item Value Reference Range Interpretation Comments MCHC (test code = MCHC) 32.0 32.0-36.0 [facility] ResourcesHvulktmZLSBWMZPTO3555-51-40 12:55:00 Test Item Value Reference Range Interpretation Comments RDW (test code = RDW) 14.0 11.0-15.0 [place] 283611-10-07 12:55:00 Test Item Value Reference Range Interpretation Comments Platelet (test code = Platelet) 151 140-400 [facility] ResourcesUzqxfndFCCIEPWFTY4647-29-49 12:55:00 Test Item Value Reference Range Interpretation Comments MPV (test code = MPV) 12.1 7.5-12.5 [facility] ResourcesNuxyjggVDGWMZUSXA1505-39-00 12:55:00 Test Item Value Reference Range Interpretation Comments Neutrophils # (test code = Neutrophils 8649 4297-2860 #) [facility] ResourcesZaiwdueMPJOVMHCKH2831-54-76 12:55:00 Test Item Value Reference Range Interpretation Comments Lymphocytes # (test code = Lymphocytes 7959 655-1523 #) [facility] ResourcesCzgjqexDZIFDDJBDW0708-04-18 12:55:00 Test Item Value Reference Range Interpretation Comments Monocytes # (test code = Monocytes #) 350 200-950 [facility] ResourcesJuwszsdGAESQZBMXT2822-41-92 12:55:00 Test Item Value Reference Range Interpretation Comments Eosinophils # (test code = Eosinophils 72 15-500 #) [facility] ResourcesBitdpqtTEEYRTIFLF5428-93-45 12:55:00 Test Item Value Reference Range Interpretation Comments Eosinophils # (test code = Eosinophils 72 15-500 #) [facility] ResourcesOteujvxNOMPGMSILR8374-68-15 12:55:00 Test Item Value Reference Range Interpretation Comments Basophils # (test code 29 See_Comment [Aut omated message] The = Basophils #) system which generated this result tra nsmitted reference range : <=200. The reference r brice was not used to int erpret this result as normal/abnormal . [facility] ResourcesBwfvvwbBLLORIIPAW3645-36-61 12:55:00 Test Item Value Reference Range Interpretation Comments Segs (test code = Segs) 65.4 [facility] ResourcesZsfujltPSYFMWQJLH0594-40-41 12:55:00 Test Item Value Reference Range Interpretation Comments Lymphocytes (test code = Lymphocytes) 25.2 [facility] ResourcesBcczdkeZRLVCPUDXF9764-00-19 12:55:00 Test Item Value Reference Range Interpretation Comments Monocytes (test code = Monocytes) 7.3 [facility] ResourcesDutpfnxJGDBEPXKJK9980-87-42 12:55:00 Test Item Value Reference Range Interpretation Comments Eosinophils (test code = Eosinophils) 1.5 [facility] ResourcesWmpjyzxENCFUSLKBJ2751-05-74 12:55:00 Test Item Value Reference Range Interpretation Comments Basophils (test code = Basophils) 0.6 [facility] ResourcesSeokuraOTAICBHBVH3914-15-53 12:55:00 Test Item Value Reference Range Interpretation Comments Sed Rate (test code = Sed Rate) 22 [facility]nuivutJFMAQXLURR9563-35-53 12:55:00 Test Item Value Reference Range Interpretation Comments C-REACTIVE PROTEIN (test code = 2.9 C-REACTIVE PROTEIN) [facility] ResourcesZcfjvakISEFSRDDZD4131-94-03 12:55:00 Test Item Value Reference Range Interpretation Comments Basophils # (test code 29 See_Comment [Aut omated message] The = Basophils #) system which generated this result tra nsmitted reference range : <=200. The reference r brice was not used to int erpret this result as normal/abnormal . [facility]2021-10-07 12:55:00 Test Item Value Reference Range Interpretation Comments Vitamin B12 Lvl (test code = Vitamin 684 179-6651 B12 Lvl) [place] 287411-10-07 12:55:00 Test Item Value Reference Range Interpretation Comments Glucose Lvl (test code = Glucose Lvl) 151 65-99 [place] 287411-10-07 12:55:00 Test Item Value Reference Range Interpretation Comments BUN (test code = BUN) 17 7-25 [facility] ResourcesHhsaihcEDGRJQIIYZ8391-10-73 12:55:00 Test Item Value Reference Range Interpretation Comments Segs (test code = Segs) 65.4 [facility]2021-10-07 12:55:00 Test Item Value Reference Range Interpretation Comments Creatinine Lvl (test code = Creatinine 0.49 0.50-1.05 Lvl) [place] 287411-10-07 12:55:00 Test Item Value Reference Range Interpretation Comments eGFR NON-AFR. [place] (test code = 107 eGFR NON-AFR. [place]) [facility]2021-10-07 12:55:00 Test Item Value Reference Range Interpretation Comments eGFR (test code = eGFR 124 ) [facility]2021-10-07 12:55:00 Test Item Value Reference Range Interpretation Comments B/C Ratio (test code = B/C Ratio) 35 6-22 [facility]2021-10-07 12:55:00 Test Item Value Reference Range Interpretation Comments Sodium Lvl (test code = Sodium Lvl) 140 135-146 [place] 287411-10-07 12:55:00 Test Item Value Reference Range Interpretation Comments Potassium Lvl (test code = Potassium 4.0 3.5-5.3 Lvl) [place] 287411-10-07 12:55:00 Test Item Value Reference Range Interpretation Comments Chloride Lvl (test code = Chloride Lvl) 105 98-110 [facility]2021-10-07 12:55:00 Test Item Value Reference Range Interpretation Comments CO2 (test code = CO2) 29 20-32 [place] 287411-10-07 12:55:00 Test Item Value Reference Range Interpretation Comments Calcium Lvl (test code = Calcium Lvl) 8.7 8.6-10.4 [place] 287411-10-07 12:55:00 Test Item Value Reference Range Interpretation Comments Total Protein (test code = Total 6.8 6.1-8.1 Protein) [place] 283611-10-07 12:55:00 Test Item Value Reference Range Interpretation Comments Lymphocytes (test code = Lymphocytes) 25.2 [place] [address]-10-07 12:55:00 Test Item Value Reference Range Interpretation Comments Albumin Lvl (test code = Albumin Lvl) 3.7 3.6-5.1 [place] 287411-10-07 12:55:00 Test Item Value Reference Range Interpretation Comments Globulin (test code = Globulin) 3.1 1.9-3.7 [place] 287411-10-07 12:55:00 Test Item Value Reference Range Interpretation Comments A/G Ratio (test code = A/G Ratio) 1.2 1.0-2.5 [place] [address]-10-07 12:55:00 Test Item Value Reference Range Interpretation Comments Bili Total (test code = Bili Total) 0.6 0.2-1.2 [place] 287411-10-07 12:55:00 Test Item Value Reference Range Interpretation Comments Alk Phos (test code = Alk Phos) 59 37-153 [place] 287411-10-07 12:55:00 Test Item Value Reference Range Interpretation Comments ASPARTATE TRANSAMINASE (test code = 18 10-35 ASPARTATE TRANSAMINASE) [place] 287411-10-07 12:55:00 Test Item Value Reference Range Interpretation Comments ALANINE AMINOTRANSFERASE (test code = 23 6-29 ALANINE AMINOTRANSFERASE) [place] [address]-10-07 12:55:00 Test Item Value Reference Range Interpretation Comments WBC X 10x3 (test code = WBC X 10x3) 4.8 3.8-10.8 [place] 287411-10-07 12:55:00 Test Item Value Reference Range Interpretation Comments Creatinine Lvl (test code = Creatinine 0.49 0.50-1.05 Lvl) [place] [address]-10-07 12:55:00 Test Item Value Reference Range Interpretation Comments RBC X 10x6 (test code = RBC X 10x6) 4.50 3.80-5.10 [place] [address]-10-07 12:55:00 Test Item Value Reference Range Interpretation Comments Hgb (test code = Hgb) 12.1 11.7-15.5 [facility] ResourcesKvmyisrEGNCLZWLXY3062-94-02 12:55:00 Test Item Value Reference Range Interpretation Comments Monocytes (test code = Monocytes) 7.3 [facility] ResourcesTjbfskpCCYKQHVQLA2427-53-34 12:55:00 Test Item Value Reference Range Interpretation Comments Hct (test code = Hct) 37.8 35.0-45.0 [facility] ResourcesXhttltcOEESBEBDHV8418-65-73 12:55:00 Test Item Value Reference Range Interpretation Comments MCV (test code = MCV) 84.0 80.0-100.0 [facility]2021-10-07 12:55:00 Test Item Value Reference Range Interpretation Comments eGFR NON-AFR. [place] (test code = 107 eGFR NON-AFR. [place]) [facility]SbewimyFZLUNXJUHI9806-21-52 12:55:00 Test Item Value Reference Range Interpretation Comments MCH (test code = MCH) 26.9 pg 27.0-33.0 [facility] ResourcesJeioflpJCAVIXUUDK0966-75-97 12:55:00 Test Item Value Reference Range Interpretation Comments MCHC (test code = MCHC) 32.0 32.0-36.0 [facility] ResourcesQihbhhrNHMSHRCHXE6143-59-72 12:55:00 Test Item Value Reference Range Interpretation Comments RDW (test code = RDW) 14.0 11.0-15.0 [facility] ResourcesXucjhasXVBVKPWYJU3519-57-33 12:55:00 Test Item Value Reference Range Interpretation Comments Platelet (test code = Platelet) 151 140-400 [facility] ResourcesNdxsvdbEZKGBTUPTP0391-24-96 12:55:00 Test Item Value Reference Range Interpretation Comments MPV (test code = MPV) 12.1 7.5-12.5 [facility]2021-10-07 12:55:00 Test Item Value Reference Range Interpretation Comments eGFR (test code = eGFR 124 ) [facility] ResourcesXbsrgrcGZKOHCABCL0640-80-59 12:55:00 Test Item Value Reference Range Interpretation Comments Neutrophils # (test code = Neutrophils 9619 [phone] #) [facility] ResourcesTjcgyawFMVLEHGGNS7964-65-71 12:55:00 Test Item Value Reference Range Interpretation Comments Lymphocytes # (test code = Lymphocytes [phone] #) [place] 283611-10-07 12:55:00 Test Item Value Reference Range Interpretation Comments Monocytes # (test code = Monocytes #) 350 200-950 [place] 283611-10-07 12:55:00 Test Item Value Reference Range Interpretation Comments Eosinophils (test code = Eosinophils) 1.5 [facility] ResourcesQwoyyebQYHWJCLYRG7403-48-03 12:55:00 Test Item Value Reference Range Interpretation Comments Eosinophils # (test code = Eosinophils 72 15-500 #) [facility]2021-10-07 12:55:00 Test Item Value Reference Range Interpretation Comments B/C Ratio (test code = B/C Ratio) 35 6-22 [facility] ResourcesTbingjkXWLTRVLZWO1507-82-28 12:55:00 Test Item Value Reference Range Interpretation Comments Basophils # (test code 29 See_Comment [Aut omated message] The = Basophils #) system which generated this result tra nsmitted reference range : <=200. The reference r brice was not used to int erpret this result as normal/abnormal . [facility] ResourcesYmjickiYZWYTZFMZH5628-21-04 12:55:00 Test Item Value Reference Range Interpretation Comments Segs (test code = Segs) 65.4 [facility] ResourcesUpsuskgWXRVTBXBAM1609-30-88 12:55:00 Test Item Value Reference Range Interpretation Comments Lymphocytes (test code = Lymphocytes) 25.2 [facility] ResourcesUdimwgaBJTWDGGEAG7015-68-70 12:55:00 Test Item Value Reference Range Interpretation Comments Monocytes (test code = Monocytes) 7.3 [facility] ResourcesKslbwaaQCEOHBYVEW5904-11-46 12:55:00 Test Item Value Reference Range Interpretation Comments Eosinophils (test code = Eosinophils) 1.5 [facility]2021-10-07 12:55:00 Test Item Value Reference Range Interpretation Comments Sodium Lvl (test code = Sodium Lvl) 140 135-146 [facility] ResourcesRofzuerYIJXGKBYWI1502-09-00 12:55:00 Test Item Value Reference Range Interpretation Comments Basophils (test code = Basophils) 0.6 [facility] ResourcesYnocdneFSZUXMHUMG8920-29-22 12:55:00 Test Item Value Reference Range Interpretation Comments Sed Rate (test code = Sed Rate) [facility]EpusloqWKXOWCBIXB6294-82-12 12:55:00 Test Item Value Reference Range Interpretation Comments C-REACTIVE PROTEIN (test code = 2.9 C-REACTIVE PROTEIN) [address]10-07 12:55:00 Test Item Value Reference Range Interpretation Comments Basophils (test code = Basophils) 0.6 [facility]2021-10-07 12:55:00 Test Item Value Reference Range Interpretation Comments Vitamin B12 Lvl (test code = Vitamin 143 575-0913 B12 Lvl) [place] 287411-10-07 12:55:00 Test Item Value Reference Range Interpretation Comments Potassium Lvl (test code = Potassium 4.0 3.5-5.3 Lvl) [facility]2021-10-07 12:55:00 Test Item Value Reference Range Interpretation Comments Glucose Lvl (test code = Glucose Lvl) 151 65-99 [place] 287411-10-07 12:55:00 Test Item Value Reference Range Interpretation Comments BUN (test code = BUN) 17 7-25 [place] 283611-10-07 12:55:00 Test Item Value Reference Range Interpretation Comments Sed Rate (test code = Sed Rate) 22 [place] 287411-10-07 12:55:00 Test Item Value Reference Range Interpretation Comments Creatinine Lvl (test code = Creatinine 0.49 0.50-1.05 Lvl) [place] 287411-10-07 12:55:00 Test Item Value Reference Range Interpretation Comments eGFR NON-AFR. [place] (test code = 107 eGFR NON-AFR. [place]) [place] 287411-10-07 12:55:00 Test Item Value Reference Range Interpretation Comments Chloride Lvl (test code = Chloride Lvl) 105 98-110 [place] 287411-10-07 12:55:00 Test Item Value Reference Range Interpretation Comments eGFR (test code = eGFR 124 ) [place] 287411-10-07 12:55:00 Test Item Value Reference Range Interpretation Comments B/C Ratio (test code = B/C Ratio) 35 6-22 [place] 287411-10-07 12:55:00 Test Item Value Reference Range Interpretation Comments Sodium Lvl (test code = Sodium Lvl) 140 135-146 [place] 287411-10-07 12:55:00 Test Item Value Reference Range Interpretation Comments Potassium Lvl (test code = Potassium 4.0 3.5-5.3 Lvl) [facility]2021-10-07 12:55:00 Test Item Value Reference Range Interpretation Comments Chloride Lvl (test code = Chloride Lvl) 105 98-110 [facility]2021-10-07 12:55:00 Test Item Value Reference Range Interpretation Comments CO2 (test code = CO2) 29 20-32 [facility]2021-10-07 12:55:00 Test Item Value Reference Range Interpretation Comments CO2 (test code = CO2) 29 -32 [facility]2021-10-07 12:55:00 Test Item Value Reference Range Interpretation Comments Calcium Lvl (test code = Calcium Lvl) 8.7 8.6-10.4 [facility]2021-10-07 12:55:00 Test Item Value Reference Range Interpretation Comments Total Protein (test code = Total 6.8 6.1-8.1 Protein) [facility]HEBAK[facility]BX4810[facility]-33 12:55:00 Test Item Value Reference Range Interpretation Comments C-REACTIVE PROTEIN (test code = 2.9 C-REACTIVE PROTEIN) [facility]2021-10-07 12:55:00 Test Item Value Reference Range Interpretation Comments Calcium Lvl (test code = Calcium Lvl) 8.7 8.6-10.4 [facility]2021-10-07 12:55:00 Test Item Value Reference Range Interpretation Comments Albumin Lvl (test code = Albumin Lvl) 3.7 3.6-5.1 [facility]2021-10-07 12:55:00 Test Item Value Reference Range Interpretation Comments Globulin (test code = Globulin) 3.1 1.9-3.7 [facility]2021-10-07 12:55:00 Test Item Value Reference Range Interpretation Comments A/G Ratio (test code = A/G Ratio) 1.2 1.0-2.5 [facility]2021-10-07 12:55:00 Test Item Value Reference Range Interpretation Comments Bili Total (test code = Bili Total) 0.6 0.2-1.2 [facility]2021-10-07 12:55:00 Test Item Value Reference Range Interpretation Comments Alk Phos (test code = Alk Phos) 59 37-153 [facility]2021-10-07 12:55:00 Test Item Value Reference Range Interpretation Comments Total Protein (test code = Total 6.8 6.1-8.1 Protein) [facility]2021-10-07 12:55:00 Test Item Value Reference Range Interpretation Comments ASPARTATE TRANSAMINASE (test code = 18 10-35 ASPARTATE TRANSAMINASE) [place] 287411-10-07 12:55:00 Test Item Value Reference Range Interpretation Comments ALANINE AMINOTRANSFERASE (test code = 23 6-29 ALANINE AMINOTRANSFERASE) [place] [address]-10-07 12:55:00 Test Item Value Reference Range Interpretation Comments WBC X 10x3 (test code = WBC X 10x3) 4.8 3.8-10.8 [place] 283611-10-07 12:55:00 Test Item Value Reference Range Interpretation Comments RBC X 10x6 (test code = RBC X 10x6) 4.50 3.80-5.10 [place] 283611-10-07 12:55:00 Test Item Value Reference Range Interpretation Comments Hgb (test code = Hgb) 12.1 11.7-15.5 [facility]2021-10-07 12:55:00 Test Item Value Reference Range Interpretation Comments Albumin Lvl (test code = Albumin Lvl) 3.7 3.6-5.1 [place] 283611-10-07 12:55:00 Test Item Value Reference Range Interpretation Comments Hct (test code = Hct) 37.8 35.0-45.0 [place] [address]-10-07 12:55:00 Test Item Value Reference Range Interpretation Comments MCV (test code = MCV) 84.0 80.0-100.0 [place] [address]-10-07 12:55:00 Test Item Value Reference Range Interpretation Comments MCH (test code = MCH) 26.9 pg 27.0-33.0 [place] 283611-10-07 12:55:00 Test Item Value Reference Range Interpretation Comments MCHC (test code = MCHC) 32.0 32.0-36.0 [place] [address]-10-07 12:55:00 Test Item Value Reference Range Interpretation Comments RDW (test code = RDW) 14.0 11.0-15.0 [facility]2021-10-07 12:55:00 Test Item Value Reference Range Interpretation Comments Globulin (test code = Globulin) 3.1 1.9-3.7 [place] 283611-10-07 12:55:00 Test Item Value Reference Range Interpretation Comments Platelet (test code = Platelet) 151 140-400 [place] 283611-10-07 12:55:00 Test Item Value Reference Range Interpretation Comments MPV (test code = MPV) 12.1 7.5-12.5 [place] 283611-10-07 12:55:00 Test Item Value Reference Range Interpretation Comments Neutrophils # (test code = Neutrophils 3139 [phone] #) [facility] ResourcesJhbwwswRHXIRUZCDK0937-74-40 12:55:00 Test Item Value Reference Range Interpretation Comments Lymphocytes # (test code = Lymphocytes [phone] #) [facility] ResourcesDxgcdyuPRZUYDMWTX6117-02-20 12:55:00 Test Item Value Reference Range Interpretation Comments Monocytes # (test code = Monocytes #) 350 200-950 [facility]2021-10-07 12:55:00 Test Item Value Reference Range Interpretation Comments A/G Ratio (test code = A/G Ratio) 1.2 1.0-2.5 [facility] ResourcesGiahrsvWAQJQZJUIA5256-33-99 12:55:00 Test Item Value Reference Range Interpretation Comments Eosinophils # (test code = Eosinophils 72 15-500 #) [facility] ResourcesTjkjlxuMXKCBASYEE1043-44-51 12:55:00 Test Item Value Reference Range Interpretation Comments Basophils # (test code 29 See_Comment [Aut omated message] The = Basophils #) system which generated this result tra nsmitted reference range : <=200. The reference r brice was not used to int erpret this result as normal/abnormal . [facility] ResourcesVuktuaqDYKNBATJDU9137-98-07 12:55:00 Test Item Value Reference Range Interpretation Comments Segs (test code = Segs) 65.4 [place] 283611-10-07 12:55:00 Test Item Value Reference Range Interpretation Comments Lymphocytes (test code = Lymphocytes) 25.2 [place] [address]-10-07 12:55:00 Test Item Value Reference Range Interpretation Comments Monocytes (test code = Monocytes) 7.3 [facility]2021-10-07 12:55:00 Test Item Value Reference Range Interpretation Comments Bili Total (test code = Bili Total) 0.6 0.2-1.2 [place] 283611-10-07 12:55:00 Test Item Value Reference Range Interpretation Comments Eosinophils (test code = Eosinophils) 1.5 [place] 283611-10-07 12:55:00 Test Item Value Reference Range Interpretation Comments Basophils (test code = Basophils) 0.6 [place] 283611-10-07 12:55:00 Test Item Value Reference Range Interpretation Comments Sed Rate (test code = Sed Rate) 22 [facility]UncpmteVATSLKTATA1204-77-70 12:55:00 Test Item Value Reference Range Interpretation Comments C-REACTIVE PROTEIN (test code = 2.9 C-REACTIVE PROTEIN) [facility]2021-10-07 12:55:00 Test Item Value Reference Range Interpretation Comments Vitamin B12 Lvl (test code = Vitamin 421 160-5606 B12 Lvl) [facility]2021-10-07 12:55:00 Test Item Value Reference Range Interpretation Comments Alk Phos (test code = Alk Phos) 59 37-153 [facility]2021-10-07 12:55:00 Test Item Value Reference Range Interpretation Comments Glucose Lvl (test code = Glucose Lvl) 151 65-99 [facility]2021-10-07 12:55:00 Test Item Value Reference Range Interpretation Comments BUN (test code = BUN) 17 7-25 [place] 287411-10-07 12:55:00 Test Item Value Reference Range Interpretation Comments Creatinine Lvl (test code = Creatinine 0.49 0.50-1.05 Lvl) [facility]2021-10-07 12:55:00 Test Item Value Reference Range Interpretation Comments eGFR NON-AFR. [place] (test code = 107 eGFR NON-AFR. [place]) [facility]2021-10-07 12:55:00 Test Item Value Reference Range Interpretation Comments eGFR (test code = eGFR 124 ) [facility]2021-10-07 12:55:00 Test Item Value Reference Range Interpretation Comments ASPARTATE TRANSAMINASE (test code = 18 10-35 ASPARTATE TRANSAMINASE) [place] 287411-10-07 12:55:00 Test Item Value Reference Range Interpretation Comments B/C Ratio (test code = B/C Ratio) 35 6-22 [facility]2021-10-07 12:55:00 Test Item Value Reference Range Interpretation Comments Sodium Lvl (test code = Sodium Lvl) 140 135-146 [facility]2021-10-07 12:55:00 Test Item Value Reference Range Interpretation Comments Potassium Lvl (test code = Potassium 4.0 3.5-5.3 Lvl) [place] 287411-10-07 12:55:00 Test Item Value Reference Range Interpretation Comments Chloride Lvl (test code = Chloride Lvl) 105 98-110 [facility]2021-10-07 12:55:00 Test Item Value Reference Range Interpretation Comments ALANINE AMINOTRANSFERASE (test code = 23 6-29 ALANINE AMINOTRANSFERASE) [facility]2021-10-07 12:55:00 Test Item Value Reference Range Interpretation Comments CO2 (test code = CO2) 29 20-32 [facility]2021-10-07 12:55:00 Test Item Value Reference Range Interpretation Comments Calcium Lvl (test code = Calcium Lvl) 8.7 8.6-10.4 [facility]2021-10-07 12:55:00 Test Item Value Reference Range Interpretation Comments Total Protein (test code = Total 6.8 6.1-8.1 Protein) [facility]2021-10-07 12:55:00 Test Item Value Reference Range Interpretation Comments Albumin Lvl (test code = Albumin Lvl) 3.7 3.6-5.1 [facility]BtcgytmFGROFDWHRE6783-94-25 12:55:00 Test Item Value Reference Range Interpretation Comments WBC X 10x3 (test code = WBC X 10x3) 4.8 3.8-10.8 [facility]2021-10-07 12:55:00 Test Item Value Reference Range Interpretation Comments Globulin (test code = Globulin) 3.1 1.9-3.7 [place] 287411-10-07 12:55:00 Test Item Value Reference Range Interpretation Comments A/G Ratio (test code = A/G Ratio) 1.2 1.0-2.5 [place] 287411-10-07 12:55:00 Test Item Value Reference Range Interpretation Comments Bili Total (test code = Bili Total) 0.6 0.2-1.2 [place] 283611-10-07 12:55:00 Test Item Value Reference Range Interpretation Comments RBC X 10x6 (test code = RBC X 10x6) 4.50 3.80-5.10 [facility]2021-10-07 12:55:00 Test Item Value Reference Range Interpretation Comments Alk Phos (test code = Alk Phos) 59 37-153 [facility]2021-10-07 12:55:00 Test Item Value Reference Range Interpretation Comments ASPARTATE TRANSAMINASE (test code = 18 10-35 ASPARTATE TRANSAMINASE) [facility]2021-10-07 12:55:00 Test Item Value Reference Range Interpretation Comments ALANINE AMINOTRANSFERASE (test code = 23 6-29 ALANINE AMINOTRANSFERASE) [facility] ResourcesGhfkhyfUHTBXVWVLV4946-82-32 12:55:00 Test Item Value Reference Range Interpretation Comments WBC X 10x3 (test code = WBC X 10x3) 4.8 3.8-10.8 [facility] ResourcesJwqyxppQLVKQCLOTP7450-99-17 12:55:00 Test Item Value Reference Range Interpretation Comments Hgb (test code = Hgb) 12.1 11.7-15.5 [place] 283611-10-07 12:55:00 Test Item Value Reference Range Interpretation Comments RBC X 10x6 (test code = RBC X 10x6) 4.50 3.80-5.10 [facility] ResourcesHmlpadbMUICQHOEMB9245-30-16 12:55:00 Test Item Value Reference Range Interpretation Comments Hgb (test code = Hgb) 12.1 11.7-15.5 [facility] ResourcesOgvobgaWUHVDIPNUH6647-22-13 12:55:00 Test Item Value Reference Range Interpretation Comments Hct (test code = Hct) 37.8 35.0-45.0 [place] 283611-10-07 12:55:00 Test Item Value Reference Range Interpretation Comments MCV (test code = MCV) 84.0 80.0-100.0 [place] 283611-10-07 12:55:00 Test Item Value Reference Range Interpretation Comments Hct (test code = Hct) 37.8 35.0-45.0 [place] 283611-10-07 12:55:00 Test Item Value Reference Range Interpretation Comments MCH (test code = MCH) 26.9 pg 27.0-33.0 [place] 283611-10-07 12:55:00 Test Item Value Reference Range Interpretation Comments MCHC (test code = MCHC) 32.0 32.0-36.0 [facility] ResourcesNhzanydEAJWMLEKPF2976-31-52 12:55:00 Test Item Value Reference Range Interpretation Comments RDW (test code = RDW) 14.0 11.0-15.0 [facility] ResourcesGsldqriAQLBBMRUYV0561-71-12 12:55:00 Test Item Value Reference Range Interpretation Comments Platelet (test code = Platelet) 151 140-400 [facility] ResourcesQasinyfRTFKVCTDJI4669-81-63 12:55:00 Test Item Value Reference Range Interpretation Comments MCV (test code = MCV) 84.0 80.0-100.0 [place] 283611-10-07 12:55:00 Test Item Value Reference Range Interpretation Comments MPV (test code = MPV) 12.1 7.5-12.5 [place] 283611-10-07 12:55:00 Test Item Value Reference Range Interpretation Comments Neutrophils # (test code = Neutrophils 3139 [phone] #) [facility] ResourcesLxkvesxTIIROEGDRV2691-58-00 12:55:00 Test Item Value Reference Range Interpretation Comments Lymphocytes # (test code = Lymphocytes [phone] #) [facility] ResourcesVaqwmhhTKUAUEOWSQ3308-37-69 12:55:00 Test Item Value Reference Range Interpretation Comments Monocytes # (test code = Monocytes #) 350 200-950 [facility] ResourcesUzncfrnOGXZOCFOAO9272-06-10 12:55:00 Test Item Value Reference Range Interpretation Comments MCH (test code = MCH) 26.9 pg 27.0-33.0 [place] 283611-10-07 12:55:00 Test Item Value Reference Range Interpretation Comments Eosinophils # (test code = Eosinophils 72 15-500 #) [facility] ResourcesCvhnidnIQSKPMOBLN5730-84-13 12:55:00 Test Item Value Reference Range Interpretation Comments Basophils # (test code 29 See_Comment [Aut omated message] The = Basophils #) system which generated this result tra nsmitted reference range : <=200. The reference r brice was not used to int erpret this result as normal/abnormal . [facility] ResourcesLivqmevPEBFJUHXSY6775-32-55 12:55:00 Test Item Value Reference Range Interpretation Comments Segs (test code = Segs) 65.4 [place] [address]-10-07 12:55:00 Test Item Value Reference Range Interpretation Comments Lymphocytes (test code = Lymphocytes) 25.2 [place] 283611-10-07 12:55:00 Test Item Value Reference Range Interpretation Comments MCHC (test code = MCHC) 32.0 32.0-36.0 [place] 283611-10-07 12:55:00 Test Item Value Reference Range Interpretation Comments Monocytes (test code = Monocytes) 7.3 [place] 283611-10-07 12:55:00 Test Item Value Reference Range Interpretation Comments Eosinophils (test code = Eosinophils) 1.5 [place] [address]-10-07 12:55:00 Test Item Value Reference Range Interpretation Comments Basophils (test code = Basophils) 0.6 [place] 283611-10-07 12:55:00 Test Item Value Reference Range Interpretation Comments Sed Rate (test code = Sed Rate) 22 [place] 283611-10-07 12:55:00 Test Item Value Reference Range Interpretation Comments RDW (test code = RDW) 14.0 11.0-15.0 [place] 933851-10-07 12:55:00 Test Item Value Reference Range Interpretation Comments C-REACTIVE PROTEIN (test code = 2.9 C-REACTIVE PROTEIN) [facility]2021-10-07 12:55:00 Test Item Value Reference Range Interpretation Comments Vitamin B12 Lvl (test code = Vitamin [phone] B12 Lvl) [facility]2021-10-07 12:55:00 Test Item Value Reference Range Interpretation Comments Glucose Lvl (test code = Glucose Lvl) 151 65-99 [place] 287411-10-07 12:55:00 Test Item Value Reference Range Interpretation Comments BUN (test code = BUN) 17 7-25 [place] [address]-10-07 12:55:00 Test Item Value Reference Range Interpretation Comments Platelet (test code = Platelet) 151 140-400 [facility]2021-10-07 12:55:00 Test Item Value Reference Range Interpretation Comments Creatinine Lvl (test code = Creatinine 0.49 0.50-1.05 Lvl) [facility]2021-10-07 12:55:00 Test Item Value Reference Range Interpretation Comments eGFR NON-AFR. [place] (test code = 107 eGFR NON-AFR. [place]) [place] 287411-10-07 12:55:00 Test Item Value Reference Range Interpretation Comments eGFR (test code = eGFR 124 ) [facility]2021-10-07 12:55:00 Test Item Value Reference Range Interpretation Comments B/C Ratio (test code = B/C Ratio) 35 6-22 [place] 283611-10-07 12:55:00 Test Item Value Reference Range Interpretation Comments MPV (test code = MPV) 12.1 7.5-12.5 [place] 287411-10-07 12:55:00 Test Item Value Reference Range Interpretation Comments Sodium Lvl (test code = Sodium Lvl) 140 135-146 [facility]2021-10-07 12:55:00 Test Item Value Reference Range Interpretation Comments Potassium Lvl (test code = Potassium 4.0 3.5-5.3 Lvl) [facility]2021-10-07 12:55:00 Test Item Value Reference Range Interpretation Comments Chloride Lvl (test code = Chloride Lvl) 105 98-110 [place] 283611-10-07 12:55:00 Test Item Value Reference Range Interpretation Comments Neutrophils # (test code = Neutrophils 3139 2198-9948 #) [facility]2021-10-07 12:55:00 Test Item Value Reference Range Interpretation Comments CO2 (test code = CO2) 29 20-32 [place] 287411-10-07 12:55:00 Test Item Value Reference Range Interpretation Comments Calcium Lvl (test code = Calcium Lvl) 8.7 8.6-10.4 [place] 287411-10-07 12:55:00 Test Item Value Reference Range Interpretation Comments Total Protein (test code = Total 6.8 6.1-8.1 Protein) [facility]2021-10-07 12:55:00 Test Item Value Reference Range Interpretation Comments Albumin Lvl (test code = Albumin Lvl) 3.7 3.6-5.1 [place] 287411-10-07 12:55:00 Test Item Value Reference Range Interpretation Comments Globulin (test code = Globulin) 3.1 1.9-3.7 [place] [address]-10-07 12:55:00 Test Item Value Reference Range Interpretation Comments Lymphocytes # (test code = Lymphocytes [phone] #) [place] 287411-10-07 12:55:00 Test Item Value Reference Range Interpretation Comments A/G Ratio (test code = A/G Ratio) 1.2 1.0-2.5 [place] [address]-10-07 12:55:00 Test Item Value Reference Range Interpretation Comments Bili Total (test code = Bili Total) 0.6 0.2-1.2 [place] [address]-10-07 12:55:00 Test Item Value Reference Range Interpretation Comments Alk Phos (test code = Alk Phos) 59 37-153 [place] 287411-10-07 12:55:00 Test Item Value Reference Range Interpretation Comments ASPARTATE TRANSAMINASE (test code = 18 10-35 ASPARTATE TRANSAMINASE) [place] [address]-10-07 12:55:00 Test Item Value Reference Range Interpretation Comments Monocytes # (test code = Monocytes #) 350 200-950 [place] 287411-10-07 12:55:00 Test Item Value Reference Range Interpretation Comments ALANINE AMINOTRANSFERASE (test code = 23 6-29 ALANINE AMINOTRANSFERASE) [place] [address]-10-07 12:55:00 Test Item Value Reference Range Interpretation Comments WBC X 10x3 (test code = WBC X 10x3) 4.8 3.8-10.8 [place] 283611-10-07 12:55:00 Test Item Value Reference Range Interpretation Comments RBC X 10x6 (test code = RBC X 10x6) 4.50 3.80-5.10 [place] 283611-10-07 12:55:00 Test Item Value Reference Range Interpretation Comments Hgb (test code = Hgb) 12.1 11.7-15.5 [place] [address]-10-07 12:55:00 Test Item Value Reference Range Interpretation Comments Eosinophils # (test code = Eosinophils 72 15-500 #) [place] [address]-10-07 12:55:00 Test Item Value Reference Range Interpretation Comments Hct (test code = Hct) 37.8 35.0-45.0 [place] 283611-10-07 12:55:00 Test Item Value Reference Range Interpretation Comments MCV (test code = MCV) 84.0 80.0-100.0 [place] 283611-10-07 12:55:00 Test Item Value Reference Range Interpretation Comments MCH (test code = MCH) 26.9 pg 27.0-33.0 [place] 283611-10-07 12:55:00 Test Item Value Reference Range Interpretation Comments MCHC (test code = MCHC) 32.0 32.0-36.0 [place] 283611-10-07 12:55:00 Test Item Value Reference Range Interpretation Comments Basophils # (test code 29 See_Comment [Aut omated message] The = Basophils #) system which generated this result tra nsmitted reference range : <=200. The reference r brice was not used to int erpret this result as normal/abnormal . [facility] ResourcesLlkjwosZQKEUCFADH4778-01-01 12:55:00 Test Item Value Reference Range Interpretation Comments RDW (test code = RDW) 14.0 11.0-15.0 [place] 283611-10-07 12:55:00 Test Item Value Reference Range Interpretation Comments Platelet (test code = Platelet) 151 140-400 [facility] ResourcesVnzmcomWKFLLGDVOS1444-18-70 12:55:00 Test Item Value Reference Range Interpretation Comments MPV (test code = MPV) 12.1 7.5-12.5 [facility] ResourcesHvrwfwqQSECDSXJQU2757-43-14 12:55:00 Test Item Value Reference Range Interpretation Comments Neutrophils # (test code = Neutrophils 3139 5788-2370 #) [place] 283611-10-07 12:55:00 Test Item Value Reference Range Interpretation Comments Lymphocytes # (test code = Lymphocytes [phone] #) [place] 283611-10-07 12:55:00 Test Item Value Reference Range Interpretation Comments Segs (test code = Segs) 65.4 [place] 283611-10-07 12:55:00 Test Item Value Reference Range Interpretation Comments Monocytes # (test code = Monocytes #) 350 200-950 [place] 283611-10-07 12:55:00 Test Item Value Reference Range Interpretation Comments Eosinophils # (test code = Eosinophils 72 15-500 #) [place] 283611-10-07 12:55:00 Test Item Value Reference Range Interpretation Comments Basophils # (test code 29 See_Comment [Aut omated message] The = Basophils #) system which generated this result tra nsmitted reference range : <=200. The reference r brice was not used to int erpret this result as normal/abnormal . [facility] ResourcesJpjsandXEORCETZTU7765-48-18 12:55:00 Test Item Value Reference Range Interpretation Comments Segs (test code = Segs) 65.4 [facility] ResourcesWkrzpvtBEITXCCWIV6362-86-84 12:55:00 Test Item Value Reference Range Interpretation Comments Lymphocytes (test code = Lymphocytes) 25.2 [place] 283611-10-07 12:55:00 Test Item Value Reference Range Interpretation Comments Monocytes (test code = Monocytes) 7.3 [facility] ResourcesHdmpmhxZQXDYMROIV8939-12-73 12:55:00 Test Item Value Reference Range Interpretation Comments Lymphocytes (test code = Lymphocytes) 25.2 [facility] ResourcesCqjohlkEMHKHYWCSR7686-28-82 12:55:00 Test Item Value Reference Range Interpretation Comments Eosinophils (test code = Eosinophils) 1.5 [facility] ResourcesFktcghxUECFLNDZBP3418-11-20 12:55:00 Test Item Value Reference Range Interpretation Comments Basophils (test code = Basophils) 0.6 [facility] ResourcesMeteuqmVTHHAVYIEA0839-08-87 12:55:00 Test Item Value Reference Range Interpretation Comments Sed Rate (test code = Sed Rate) 22 [facility]-41 12:55:00 Test Item Value Reference Range Interpretation Comments C-REACTIVE PROTEIN (test code = 2.9 C-REACTIVE PROTEIN) [facility]2021-10-07 12:55:00 Test Item Value Reference Range Interpretation Comments Vitamin B12 Lvl (test code = Vitamin [phone] B12 Lvl) [facility] ResourcesWuyswhpSKZCKOLXJH0867-36-29 12:55:00 Test Item Value Reference Range Interpretation Comments Monocytes (test code = Monocytes) 7.3 [facility]2021-10-07 12:55:00 Test Item Value Reference Range Interpretation Comments Glucose Lvl (test code = Glucose Lvl) 151 65-99 [facility]2021-10-07 12:55:00 Test Item Value Reference Range Interpretation Comments BUN (test code = BUN) 17 7-25 [facility]2021-10-07 12:55:00 Test Item Value Reference Range Interpretation Comments Creatinine Lvl (test code = Creatinine 0.49 0.50-1.05 Lvl) [place] 287411-10-07 12:55:00 Test Item Value Reference Range Interpretation Comments eGFR NON-AFR. [place] (test code = 107 eGFR NON-AFR. [place]) [place] 287411-10-07 12:55:00 Test Item Value Reference Range Interpretation Comments eGFR (test code = eGFR 124 ) [facility]PvvuscqVRWNCSBYXS5512-83-20 12:55:00 Test Item Value Reference Range Interpretation Comments Eosinophils (test code = Eosinophils) 1.5 [facility]2021-10-07 12:55:00 Test Item Value Reference Range Interpretation Comments B/C Ratio (test code = B/C Ratio) 35 6-22 [place] 287411-10-07 12:55:00 Test Item Value Reference Range Interpretation Comments Sodium Lvl (test code = Sodium Lvl) 140 135-146 [place] 287411-10-07 12:55:00 Test Item Value Reference Range Interpretation Comments Potassium Lvl (test code = Potassium 4.0 3.5-5.3 Lvl) [facility]2021-10-07 12:55:00 Test Item Value Reference Range Interpretation Comments Chloride Lvl (test code = Chloride Lvl) 105 98-110 [facility]2021-10-07 12:55:00 Test Item Value Reference Range Interpretation Comments CO2 (test code = CO2) 29 20-32 [place] 283611-10-07 12:55:00 Test Item Value Reference Range Interpretation Comments Basophils (test code = Basophils) 0.6 [facility]2021-10-07 12:55:00 Test Item Value Reference Range Interpretation Comments Calcium Lvl (test code = Calcium Lvl) 8.7 8.6-10.4 [place] 287411-10-07 12:55:00 Test Item Value Reference Range Interpretation Comments Total Protein (test code = Total 6.8 6.1-8.1 Protein) [place] 287411-10-07 12:55:00 Test Item Value Reference Range Interpretation Comments Albumin Lvl (test code = Albumin Lvl) 3.7 3.6-5.1 [place] 287411-10-07 12:55:00 Test Item Value Reference Range Interpretation Comments Globulin (test code = Globulin) 3.1 1.9-3.7 [place] 287411-10-07 12:55:00 Test Item Value Reference Range Interpretation Comments A/G Ratio (test code = A/G Ratio) 1.2 1.0-2.5 [place] 283611-10-07 12:55:00 Test Item Value Reference Range Interpretation Comments Sed Rate (test code = Sed Rate) 22 [place] [address]-10-07 12:55:00 Test Item Value Reference Range Interpretation Comments Bili Total (test code = Bili Total) 0.6 0.2-1.2 [place] 287411-10-07 12:55:00 Test Item Value Reference Range Interpretation Comments Alk Phos (test code = Alk Phos) 59 37-153 [place] 287411-10-07 12:55:00 Test Item Value Reference Range Interpretation Comments ASPARTATE TRANSAMINASE (test code = 18 10-35 ASPARTATE TRANSAMINASE) [place] [address]-10-07 12:55:00 Test Item Value Reference Range Interpretation Comments ALANINE AMINOTRANSFERASE (test code = 23 6-29 ALANINE AMINOTRANSFERASE) [place] [address]-10-07 12:55:00 Test Item Value Reference Range Interpretation Comments WBC X 10x3 (test code = WBC X 10x3) 4.8 3.8-10.8 [place] [address]-10-07 12:55:00 Test Item Value Reference Range Interpretation Comments RBC X 10x6 (test code = RBC X 10x6) 4.50 3.80-5.10 [place] [address]-10-07 12:55:00 Test Item Value Reference Range Interpretation Comments Hgb (test code = Hgb) 12.1 11.7-15.5 [place] [address]-10-07 12:55:00 Test Item Value Reference Range Interpretation Comments Hct (test code = Hct) 37.8 35.0-45.0 [place] [address]-10-07 12:55:00 Test Item Value Reference Range Interpretation Comments MCV (test code = MCV) 84.0 80.0-100.0 [place] [address]-10-07 12:55:00 Test Item Value Reference Range Interpretation Comments MCH (test code = MCH) 26.9 pg 27.0-33.0 [facility]LC68[facility] 12:55:00 Test Item Value Reference Range Interpretation Comments C-REACTIVE PROTEIN (test code = 2.9 C-REACTIVE PROTEIN) [facility] ResourcesOiuokzlRFOTNANAJR9921-28-89 12:55:00 Test Item Value Reference Range Interpretation Comments MCHC (test code = MCHC) 32.0 32.0-36.0 [place] 283611-10-07 12:55:00 Test Item Value Reference Range Interpretation Comments RDW (test code = RDW) 14.0 11.0-15.0 [place] 283611-10-07 12:55:00 Test Item Value Reference Range Interpretation Comments Platelet (test code = Platelet) 151 140-400 [place] 283611-10-07 12:55:00 Test Item Value Reference Range Interpretation Comments MPV (test code = MPV) 12.1 7.5-12.5 [place] 283611-10-07 12:55:00 Test Item Value Reference Range Interpretation Comments Neutrophils # (test code = Neutrophils 3139 0197-8146 #) [place] 283611-10-07 12:55:00 Test Item Value Reference Range Interpretation Comments Lymphocytes # (test code = Lymphocytes [phone] #) [facility] ResourcesTwexhqcGSVIYJMGAK6339-26-08 12:55:00 Test Item Value Reference Range Interpretation Comments Monocytes # (test code = Monocytes #) 350 200-950 [place] 283611-10-07 12:55:00 Test Item Value Reference Range Interpretation Comments Eosinophils # (test code = Eosinophils 72 15-500 #) [place] 283611-10-07 12:55:00 Test Item Value Reference Range Interpretation Comments Basophils # (test code 29 See_Comment [Aut omated message] The = Basophils #) system which generated this result tra nsmitted reference range : <=200. The reference r brice was not used to int erpret this result as normal/abnormal . [place] 283611-10-07 12:55:00 Test Item Value Reference Range Interpretation Comments Segs (test code = Segs) 65.4 [place] 283611-10-07 12:55:00 Test Item Value Reference Range Interpretation Comments Lymphocytes (test code = Lymphocytes) 25.2 [facility]2021-10-07 12:55:00 Test Item Value Reference Range Interpretation Comments Vitamin B12 Lvl (test code = Vitamin [phone] B12 Lvl) [facility] ResourcesVugutmqLGOUERDUAG1728-88-11 12:55:00 Test Item Value Reference Range Interpretation Comments Monocytes (test code = Monocytes) 7.3 [place] 283611-10-07 12:55:00 Test Item Value Reference Range Interpretation Comments Eosinophils (test code = Eosinophils) 1.5 [place] 283611-10-07 12:55:00 Test Item Value Reference Range Interpretation Comments Basophils (test code = Basophils) 0.6 [place] 283611-10-07 12:55:00 Test Item Value Reference Range Interpretation Comments Sed Rate (test code = Sed Rate) 22 [place] 933851-10-07 12:55:00 Test Item Value Reference Range Interpretation Comments C-REACTIVE PROTEIN (test code = 2.9 C-REACTIVE PROTEIN) [facility]2021-10-07 12:55:00 Test Item Value Reference Range Interpretation Comments Vitamin B12 Lvl (test code = Vitamin [phone] B12 Lvl) [facility]2021-10-07 12:55:00 Test Item Value Reference Range Interpretation Comments Glucose Lvl (test code = Glucose Lvl) 151 65-99 [facility]2021-10-07 12:55:00 Test Item Value Reference Range Interpretation Comments BUN (test code = BUN) 17 12-10 [facility]2021-10-07 12:55:00 Test Item Value Reference Range Interpretation Comments Glucose Lvl (test code = Glucose Lvl) 151 65-99 [facility]2021-10-07 12:55:00 Test Item Value Reference Range Interpretation Comments BUN (test code = BUN) 17 12-10 [facility]2021-10-07 12:55:00 Test Item Value Reference Range Interpretation Comments Creatinine Lvl (test code = Creatinine 0.49 0.50-1.05 Lvl) [facility]2021-10-07 12:55:00 Test Item Value Reference Range Interpretation Comments eGFR NON-AFR. [place] (test code = 107 eGFR NON-AFR. [place]) [place] 287411-10-07 12:55:00 Test Item Value Reference Range Interpretation Comments eGFR (test code = eGFR 124 ) [facility]2021-10-07 12:55:00 Test Item Value Reference Range Interpretation Comments B/C Ratio (test code = B/C Ratio) 35 6-22 [place] 287411-10-07 12:55:00 Test Item Value Reference Range Interpretation Comments Sodium Lvl (test code = Sodium Lvl) 140 135-146 [facility]2021-10-07 12:55:00 Test Item Value Reference Range Interpretation Comments Potassium Lvl (test code = Potassium 4.0 3.5-5.3 Lvl) [facility]2021-10-07 12:55:00 Test Item Value Reference Range Interpretation Comments Chloride Lvl (test code = Chloride Lvl) 105 98-110 [facility]2021-10-07 12:55:00 Test Item Value Reference Range Interpretation Comments CO2 (test code = CO2) 29 20-32 [facility]2021-10-07 12:55:00 Test Item Value Reference Range Interpretation Comments Calcium Lvl (test code = Calcium Lvl) 8.7 8.6-10.4 [facility]2021-10-07 12:55:00 Test Item Value Reference Range Interpretation Comments Total Protein (test code = Total 6.8 6.1-8.1 Protein) [facility]2021-10-07 12:55:00 Test Item Value Reference Range Interpretation Comments Albumin Lvl (test code = Albumin Lvl) 3.7 3.6-5.1 [place] 287411-10-07 12:55:00 Test Item Value Reference Range Interpretation Comments Globulin (test code = Globulin) 3.1 1.9-3.7 [place] 287411-10-07 12:55:00 Test Item Value Reference Range Interpretation Comments A/G Ratio (test code = A/G Ratio) 1.2 1.0-2.5 [place] 287411-10-07 12:55:00 Test Item Value Reference Range Interpretation Comments Bili Total (test code = Bili Total) 0.6 0.2-1.2 [place] 287411-10-07 12:55:00 Test Item Value Reference Range Interpretation Comments Alk Phos (test code = Alk Phos) 59 37-153 [facility]2021-10-07 12:55:00 Test Item Value Reference Range Interpretation Comments ASPARTATE TRANSAMINASE (test code = 18 10-35 ASPARTATE TRANSAMINASE) [facility]2021-10-07 12:55:00 Test Item Value Reference Range Interpretation Comments ALANINE AMINOTRANSFERASE (test code = 23 6-29 ALANINE AMINOTRANSFERASE) [place] [address]-10-07 12:55:00 Test Item Value Reference Range Interpretation Comments WBC X 10x3 (test code = WBC X 10x3) 4.8 3.8-10.8 [place] 283611-10-07 12:55:00 Test Item Value Reference Range Interpretation Comments RBC X 10x6 (test code = RBC X 10x6) 4.50 3.80-5.10 [place] [address]-10-07 12:55:00 Test Item Value Reference Range Interpretation Comments Hgb (test code = Hgb) 12.1 11.7-15.5 [place] [address]-10-07 12:55:00 Test Item Value Reference Range Interpretation Comments Hct (test code = Hct) 37.8 35.0-45.0 [place] 283611-10-07 12:55:00 Test Item Value Reference Range Interpretation Comments MCV (test code = MCV) 84.0 80.0-100.0 [place] 283611-10-07 12:55:00 Test Item Value Reference Range Interpretation Comments MCH (test code = MCH) 26.9 pg 27.0-33.0 [place] 283611-10-07 12:55:00 Test Item Value Reference Range Interpretation Comments MCHC (test code = MCHC) 32.0 32.0-36.0 [place] [address]-10-07 12:55:00 Test Item Value Reference Range Interpretation Comments RDW (test code = RDW) 14.0 11.0-15.0 [place] 283611-10-07 12:55:00 Test Item Value Reference Range Interpretation Comments Platelet (test code = Platelet) 151 140-400 [place] 283611-10-07 12:55:00 Test Item Value Reference Range Interpretation Comments MPV (test code = MPV) 12.1 7.5-12.5 [facility]SldwzvtDQRBNLHGTF6643-22-12 12:55:00 Test Item Value Reference Range Interpretation Comments Neutrophils # (test code = Neutrophils 3139 7291-5449 #) [facility] ResourcesKjxbyshKJEMRXDIFC0250-73-89 12:55:00 Test Item Value Reference Range Interpretation Comments Lymphocytes # (test code = Lymphocytes [phone] #) [facility] ResourcesLblvmxvKFKTJPHNPL4751-40-86 12:55:00 Test Item Value Reference Range Interpretation Comments Monocytes # (test code = Monocytes #) 350 200-950 [facility] ResourcesOdtsqwwAXOUDUVNLG0233-96-35 12:55:00 Test Item Value Reference Range Interpretation Comments Eosinophils # (test code = Eosinophils 72 15-500 #) [facility] ResourcesDgrzzgvVNSZSFSOQE0846-47-03 12:55:00 Test Item Value Reference Range Interpretation Comments Basophils # (test code 29 See_Comment [Aut omated message] The = Basophils #) system which generated this result tra nsmitted reference range : <=200. The reference r brice was not used to int erpret this result as normal/abnormal . [facility]PrtssgfUNOQXZDGOY3273-20-19 12:55:00 Test Item Value Reference Range Interpretation Comments Segs (test code = Segs) 65.4 [facility] ResourcesOuzhueoDJONYNDMVI6141-32-05 12:55:00 Test Item Value Reference Range Interpretation Comments Lymphocytes (test code = Lymphocytes) 25.2 [facility] ResourcesXuorimtEYMGBYIMOH6826-10-93 12:55:00 Test Item Value Reference Range Interpretation Comments Monocytes (test code = Monocytes) 7.3 [facility] ResourcesYgqibytZEPYUKUPKY8437-16-94 12:55:00 Test Item Value Reference Range Interpretation Comments Eosinophils (test code = Eosinophils) 1.5 [facility] ResourcesXtcroqsWZAPTHCDFY5292-88-96 12:55:00 Test Item Value Reference Range Interpretation Comments Basophils (test code = Basophils) 0.6 [place] 283611-10-07 12:55:00 Test Item Value Reference Range Interpretation Comments Sed Rate (test code = Sed Rate) [facility]99 12:55:00 Test Item Value Reference Range Interpretation Comments C-REACTIVE PROTEIN (test code = 2.9 C-REACTIVE PROTEIN) [facility]2021-10-07 12:55:00 Test Item Value Reference Range Interpretation Comments Vitamin B12 Lvl (test code = Vitamin [phone] B12 Lvl) [place] 287411-10-07 12:55:00 Test Item Value Reference Range Interpretation Comments Glucose Lvl (test code = Glucose Lvl) 151 65-99 [place] 287411-10-07 12:55:00 Test Item Value Reference Range Interpretation Comments BUN (test code = BUN) 17 7-25 [place] 287411-10-07 12:55:00 Test Item Value Reference Range Interpretation Comments Creatinine Lvl (test code = Creatinine 0.49 0.50-1.05 Lvl) [place] 287411-10-07 12:55:00 Test Item Value Reference Range Interpretation Comments eGFR NON-AFR. [place] (test code = 107 eGFR NON-AFR. [place]) [place] 287411-10-07 12:55:00 Test Item Value Reference Range Interpretation Comments eGFR (test code = eGFR 124 ) [place] 287411-10-07 12:55:00 Test Item Value Reference Range Interpretation Comments B/C Ratio (test code = B/C Ratio) 35 6-22 [place] 287411-10-07 12:55:00 Test Item Value Reference Range Interpretation Comments Sodium Lvl (test code = Sodium Lvl) 140 135-146 [place] 287411-10-07 12:55:00 Test Item Value Reference Range Interpretation Comments Potassium Lvl (test code = Potassium 4.0 3.5-5.3 Lvl) [place] 287411-10-07 12:55:00 Test Item Value Reference Range Interpretation Comments Chloride Lvl (test code = Chloride Lvl) 105 98-110 [place] 287411-10-07 12:55:00 Test Item Value Reference Range Interpretation Comments CO2 (test code = CO2) 29 20-32 [facility]2021-10-07 12:55:00 Test Item Value Reference Range Interpretation Comments Calcium Lvl (test code = Calcium Lvl) 8.7 8.6-10.4 [place] 287411-10-07 12:55:00 Test Item Value Reference Range Interpretation Comments Total Protein (test code = Total 6.8 6.1-8.1 Protein) [facility]2021-10-07 12:55:00 Test Item Value Reference Range Interpretation Comments Albumin Lvl (test code = Albumin Lvl) 3.7 3.6-5.1 [place] 287411-10-07 12:55:00 Test Item Value Reference Range Interpretation Comments Globulin (test code = Globulin) 3.1 1.9-3.7 [facility]2021-10-07 12:55:00 Test Item Value Reference Range Interpretation Comments A/G Ratio (test code = A/G Ratio) 1.2 1.0-2.5 [place] 287411-10-07 12:55:00 Test Item Value Reference Range Interpretation Comments Bili Total (test code = Bili Total) 0.6 0.2-1.2 [place] 287411-10-07 12:55:00 Test Item Value Reference Range Interpretation Comments Alk Phos (test code = Alk Phos) 59 37-153 [facility]2021-10-07 12:55:00 Test Item Value Reference Range Interpretation Comments ASPARTATE TRANSAMINASE (test code = 18 10-35 ASPARTATE TRANSAMINASE) [facility]2021-10-07 12:55:00 Test Item Value Reference Range Interpretation Comments ALANINE AMINOTRANSFERASE (test code = 23 6-29 ALANINE AMINOTRANSFERASE) [place] 283611-10-07 12:55:00 Test Item Value Reference Range Interpretation Comments WBC X 10x3 (test code = WBC X 10x3) 4.8 3.8-10.8 [facility] ResourcesGeupeotCNAOMUFNVE7779-74-54 12:55:00 Test Item Value Reference Range Interpretation Comments RBC X 10x6 (test code = RBC X 10x6) 4.50 3.80-5.10 [place] 283611-10-07 12:55:00 Test Item Value Reference Range Interpretation Comments Hgb (test code = Hgb) 12.1 11.7-15.5 [facility]2021-10-07 12:55:00 Test Item Value Reference Range Interpretation Comments Vitamin B12 Lvl (test code = Vitamin 505 112-0835 B12 Lvl) [facility]2021-10-07 12:55:00 Test Item Value Reference Range Interpretation Comments Glucose Lvl (test code = Glucose Lvl) 151 65-99 [place] 287411-10-07 12:55:00 Test Item Value Reference Range Interpretation Comments BUN (test code = BUN) 17 7-25 [place] 287411-10-07 12:55:00 Test Item Value Reference Range Interpretation Comments Creatinine Lvl (test code = Creatinine 0.49 0.50-1.05 Lvl) [place] 287411-10-07 12:55:00 Test Item Value Reference Range Interpretation Comments eGFR NON-AFR. [place] (test code = 107 eGFR NON-AFR. [place]) [facility]2021-10-07 12:55:00 Test Item Value Reference Range Interpretation Comments eGFR (test code = eGFR 124 ) [place] 287411-10-07 12:55:00 Test Item Value Reference Range Interpretation Comments B/C Ratio (test code = B/C Ratio) 35 6-22 [place] 287411-10-07 12:55:00 Test Item Value Reference Range Interpretation Comments Sodium Lvl (test code = Sodium Lvl) 140 135-146 [facility]2021-10-07 12:55:00 Test Item Value Reference Range Interpretation Comments Potassium Lvl (test code = Potassium 4.0 3.5-5.3 Lvl) [facility]2021-10-07 12:55:00 Test Item Value Reference Range Interpretation Comments Chloride Lvl (test code = Chloride Lvl) 105 98-110 [place] 287411-10-07 12:55:00 Test Item Value Reference Range Interpretation Comments CO2 (test code = CO2) 29 20-32 [place] 287411-10-07 12:55:00 Test Item Value Reference Range Interpretation Comments Calcium Lvl (test code = Calcium Lvl) 8.7 8.6-10.4 [facility] ServicesJevngdkRCDOKGGUIY3674-44-55 12:55:00 Test Item Value Reference Range Interpretation Comments Hct (test code = Hct) 37.8 35.0-45.0 [facility]2021-10-07 12:55:00 Test Item Value Reference Range Interpretation Comments Total Protein (test code = Total 6.8 6.1-8.1 Protein) [place] 287411-10-07 12:55:00 Test Item Value Reference Range Interpretation Comments Albumin Lvl (test code = Albumin Lvl) 3.7 3.6-5.1 [place] 287411-10-07 12:55:00 Test Item Value Reference Range Interpretation Comments Globulin (test code = Globulin) 3.1 1.9-3.7 [place] 287411-10-07 12:55:00 Test Item Value Reference Range Interpretation Comments A/G Ratio (test code = A/G Ratio) 1.2 1.0-2.5 [place] 287411-10-07 12:55:00 Test Item Value Reference Range Interpretation Comments Bili Total (test code = Bili Total) 0.6 0.2-1.2 [place] [address]-10-07 12:55:00 Test Item Value Reference Range Interpretation Comments Alk Phos (test code = Alk Phos) 59 37-153 [place] 287411-10-07 12:55:00 Test Item Value Reference Range Interpretation Comments ASPARTATE TRANSAMINASE (test code = 18 10-35 ASPARTATE TRANSAMINASE) [place] [address]-10-07 12:55:00 Test Item Value Reference Range Interpretation Comments ALANINE AMINOTRANSFERASE (test code = 23 6-29 ALANINE AMINOTRANSFERASE) [place] 283611-10-07 12:55:00 Test Item Value Reference Range Interpretation Comments WBC X 10x3 (test code = WBC X 10x3) 4.8 3.8-10.8 [place] 283611-10-07 12:55:00 Test Item Value Reference Range Interpretation Comments RBC X 10x6 (test code = RBC X 10x6) 4.50 3.80-5.10 [place] 283611-10-07 12:55:00 Test Item Value Reference Range Interpretation Comments Hgb (test code = Hgb) 12.1 11.7-15.5 [place] 283611-10-07 12:55:00 Test Item Value Reference Range Interpretation Comments Hct (test code = Hct) 37.8 35.0-45.0 [place] [address]-10-07 12:55:00 Test Item Value Reference Range Interpretation Comments MCV (test code = MCV) 84.0 80.0-100.0 [place] [address]-10-07 12:55:00 Test Item Value Reference Range Interpretation Comments MCH (test code = MCH) 26.9 pg 27.0-33.0 [place] 283611-10-07 12:55:00 Test Item Value Reference Range Interpretation Comments MCHC (test code = MCHC) 32.0 32.0-36.0 [place] 283611-10-07 12:55:00 Test Item Value Reference Range Interpretation Comments RDW (test code = RDW) 14.0 11.0-15.0 [place] 283611-10-07 12:55:00 Test Item Value Reference Range Interpretation Comments Platelet (test code = Platelet) 151 140-400 [place] 283611-10-07 12:55:00 Test Item Value Reference Range Interpretation Comments MPV (test code = MPV) 12.1 7.5-12.5 [place] 283611-10-07 12:55:00 Test Item Value Reference Range Interpretation Comments Neutrophils # (test code = Neutrophils 3139 7086-4350 #) [place] 283611-10-07 12:55:00 Test Item Value Reference Range Interpretation Comments Lymphocytes # (test code = Lymphocytes [phone] #) [facility]NcpjqywIPEFAADTYL8211-23-84 12:55:00 Test Item Value Reference Range Interpretation Comments Monocytes # (test code = Monocytes #) 350 200-950 [place] 283611-10-07 12:55:00 Test Item Value Reference Range Interpretation Comments Eosinophils # (test code = Eosinophils 72 15-500 #) [facility] ResourcesZarebnoJVEBMQDLGC3984-55-43 12:55:00 Test Item Value Reference Range Interpretation Comments Basophils # (test code 29 See_Comment [Aut omated message] The = Basophils #) system which generated this result tra nsmitted reference range : <=200. The reference r brice was not used to int erpret this result as normal/abnormal . [facility] ResourcesGonbkxgSVTLOBKVKB7056-16-63 12:55:00 Test Item Value Reference Range Interpretation Comments Segs (test code = Segs) 65.4 [place] 283611-10-07 12:55:00 Test Item Value Reference Range Interpretation Comments Lymphocytes (test code = Lymphocytes) 25.2 [place] 283611-10-07 12:55:00 Test Item Value Reference Range Interpretation Comments Monocytes (test code = Monocytes) 7.3 [place] 283611-10-07 12:55:00 Test Item Value Reference Range Interpretation Comments Eosinophils (test code = Eosinophils) 1.5 [facility] ResourcesYuhwhrfHOLRWBFOGK4599-62-40 12:55:00 Test Item Value Reference Range Interpretation Comments Basophils (test code = Basophils) 0.6 [facility] ResourcesJrgrebrIYJAPDCIEV1225-63-18 12:55:00 Test Item Value Reference Range Interpretation Comments Sed Rate (test code = Sed Rate) 22 [place] 933851-10-07 12:55:00 Test Item Value Reference Range Interpretation Comments C-REACTIVE PROTEIN (test code = 2.9 C-REACTIVE PROTEIN) [facility] ResourcesReswhlbXVMVVOSZVU4583-12-12 12:55:00 Test Item Value Reference Range Interpretation Comments MCV (test code = MCV) 84.0 80.0-100.0 [facility] ResourcesUwmsoboSXDIWJFEZA3280-39-82 12:55:00 Test Item Value Reference Range Interpretation Comments MCH (test code = MCH) 26.9 pg 27.0-33.0 [facility] ResourcesSfownkoLPBSAXISLG3528-40-99 12:55:00 Test Item Value Reference Range Interpretation Comments MCHC (test code = MCHC) 32.0 32.0-36.0 [facility] ResourcesBykpsilMXTUEPAZDS4166-64-16 12:55:00 Test Item Value Reference Range Interpretation Comments RDW (test code = RDW) 14.0 11.0-15.0 [facility] ResourcesPbahkgzOJBKTYAPFW2880-69-53 12:55:00 Test Item Value Reference Range Interpretation Comments Platelet (test code = Platelet) 151 140-400 [facility] ResourcesVzzfgnbIZJWGVQDAM7504-57-03 12:55:00 Test Item Value Reference Range Interpretation Comments MPV (test code = MPV) 12.1 7.5-12.5 [facility] ResourcesIufsmjfZUVRJHJQXZ2194-35-17 12:55:00 Test Item Value Reference Range Interpretation Comments Neutrophils # (test code = Neutrophils 0019 9613-1286 #) [facility] ResourcesZdnevufJBBHDAFXZK3869-68-83 12:55:00 Test Item Value Reference Range Interpretation Comments Lymphocytes # (test code = Lymphocytes 0984 124-8542 #) [facility] ResourcesBwntzyiMKWCBWJBAR7673-25-57 12:55:00 Test Item Value Reference Range Interpretation Comments Monocytes # (test code = Monocytes #) 350 200-950 [facility] ResourcesRjozohoSDLWPOSCUP3965-03-58 12:55:00 Test Item Value Reference Range Interpretation Comments Eosinophils # (test code = Eosinophils 72 15-500 #) [facility] ResourcesCtotjvwAMARMVLNSF4122-46-14 12:55:00 Test Item Value Reference Range Interpretation Comments Basophils # (test code 29 See_Comment [Aut omated message] The = Basophils #) system which generated this result tra nsmitted reference range : <=200. The reference r brice was not used to int erpret this result as normal/abnormal . [facility] ResourcesEulqqskMDIIDWEVNZ8766-43-24 12:55:00 Test Item Value Reference Range Interpretation Comments Segs (test code = Segs) 65.4 [place] 283611-10-07 12:55:00 Test Item Value Reference Range Interpretation Comments Lymphocytes (test code = Lymphocytes) 25.2 [place] 283611-10-07 12:55:00 Test Item Value Reference Range Interpretation Comments Monocytes (test code = Monocytes) 7.3 [facility] ResourcesUxqcgkiMDUSAQZGFK8766-25-58 12:55:00 Test Item Value Reference Range Interpretation Comments Eosinophils (test code = Eosinophils) 1.5 [place] 283611-10-07 12:55:00 Test Item Value Reference Range Interpretation Comments Basophils (test code = Basophils) 0.6 [place] 283611-10-07 12:55:00 Test Item Value Reference Range Interpretation Comments Sed Rate (test code = Sed Rate) [facility]DkfwzoiNLXGSJHYXK5116-90-71 12:55:00 Test Item Value Reference Range Interpretation Comments C-REACTIVE PROTEIN (test code = 2.9 C-REACTIVE PROTEIN) [facility]2021-10-07 12:55:00 Test Item Value Reference Range Interpretation Comments Vitamin B12 Lvl (test code = Vitamin 034 719-1466 B12 Lvl) [facility]2021-10-07 12:55:00 Test Item Value Reference Range Interpretation Comments Glucose Lvl (test code = Glucose Lvl) 151 65-99 [facility]2021-10-07 12:55:00 Test Item Value Reference Range Interpretation Comments BUN (test code = BUN) 17 7-25 [facility]2021-10-07 12:55:00 Test Item Value Reference Range Interpretation Comments Vitamin B12 Lvl (test code = Vitamin [phone] B12 Lvl) [facility]2021-10-07 12:55:00 Test Item Value Reference Range Interpretation Comments Creatinine Lvl (test code = Creatinine 0.49 0.50-1.05 Lvl) [place] 287411-10-07 12:55:00 Test Item Value Reference Range Interpretation Comments eGFR NON-AFR. [place] (test code = 107 eGFR NON-AFR. [place]) [place] 287411-10-07 12:55:00 Test Item Value Reference Range Interpretation Comments eGFR (test code = eGFR 124 ) [place] 287411-10-07 12:55:00 Test Item Value Reference Range Interpretation Comments B/C Ratio (test code = B/C Ratio) 35 6-22 [place] 287411-10-07 12:55:00 Test Item Value Reference Range Interpretation Comments Sodium Lvl (test code = Sodium Lvl) 140 135-146 [place] 287411-10-07 12:55:00 Test Item Value Reference Range Interpretation Comments Potassium Lvl (test code = Potassium 4.0 3.5-5.3 Lvl) [place] 287411-10-07 12:55:00 Test Item Value Reference Range Interpretation Comments Chloride Lvl (test code = Chloride Lvl) 105 98-110 [place] 287411-10-07 12:55:00 Test Item Value Reference Range Interpretation Comments CO2 (test code = CO2) 29 20-32 [place] 287411-10-07 12:55:00 Test Item Value Reference Range Interpretation Comments Calcium Lvl (test code = Calcium Lvl) 8.7 8.6-10.4 [place] 287411-10-07 12:55:00 Test Item Value Reference Range Interpretation Comments Total Protein (test code = Total 6.8 6.1-8.1 Protein) [place] 287411-10-07 12:55:00 Test Item Value Reference Range Interpretation Comments Glucose Lvl (test code = Glucose Lvl) 151 65-99 [place] 287411-10-07 12:55:00 Test Item Value Reference Range Interpretation Comments Albumin Lvl (test code = Albumin Lvl) 3.7 3.6-5.1 [place] 287411-10-07 12:55:00 Test Item Value Reference Range Interpretation Comments Globulin (test code = Globulin) 3.1 1.9-3.7 [place] 287411-10-07 12:55:00 Test Item Value Reference Range Interpretation Comments A/G Ratio (test code = A/G Ratio) 1.2 1.0-2.5 [place] 287411-10-07 12:55:00 Test Item Value Reference Range Interpretation Comments Bili Total (test code = Bili Total) 0.6 0.2-1.2 [place] 287411-10-07 12:55:00 Test Item Value Reference Range Interpretation Comments Alk Phos (test code = Alk Phos) 59 37-153 [place] 287411-10-07 12:55:00 Test Item Value Reference Range Interpretation Comments ASPARTATE TRANSAMINASE (test code = 18 10-35 ASPARTATE TRANSAMINASE) [place] 287411-10-07 12:55:00 Test Item Value Reference Range Interpretation Comments ALANINE AMINOTRANSFERASE (test code = 23 6-29 ALANINE AMINOTRANSFERASE) [place] [address]-10-07 12:55:00 Test Item Value Reference Range Interpretation Comments WBC X 10x3 (test code = WBC X 10x3) 4.8 3.8-10.8 [place] 283611-10-07 12:55:00 Test Item Value Reference Range Interpretation Comments RBC X 10x6 (test code = RBC X 10x6) 4.50 3.80-5.10 [place] [address]-10-07 12:55:00 Test Item Value Reference Range Interpretation Comments Hgb (test code = Hgb) 12.1 11.7-15.5 [place] 287411-10-07 12:55:00 Test Item Value Reference Range Interpretation Comments BUN (test code = BUN) 17 7-25 [place] [address]-10-07 12:55:00 Test Item Value Reference Range Interpretation Comments Hct (test code = Hct) 37.8 35.0-45.0 [place] 283611-10-07 12:55:00 Test Item Value Reference Range Interpretation Comments MCV (test code = MCV) 84.0 80.0-100.0 [place] [address]-10-07 12:55:00 Test Item Value Reference Range Interpretation Comments MCH (test code = MCH) 26.9 pg 27.0-33.0 [place] 283611-10-07 12:55:00 Test Item Value Reference Range Interpretation Comments MCHC (test code = MCHC) 32.0 32.0-36.0 [place] 283611-10-07 12:55:00 Test Item Value Reference Range Interpretation Comments RDW (test code = RDW) 14.0 11.0-15.0 [place] 283611-10-07 12:55:00 Test Item Value Reference Range Interpretation Comments Platelet (test code = Platelet) 151 140-400 [facility] ResourcesIxvfyreRVDJGLVAXE2173-95-16 12:55:00 Test Item Value Reference Range Interpretation Comments MPV (test code = MPV) 12.1 7.5-12.5 [place] 283611-10-07 12:55:00 Test Item Value Reference Range Interpretation Comments Neutrophils # (test code = Neutrophils 3139 9045-5547 #) [facility] ResourcesNedcsvrKOLHIBNSKC9508-84-54 12:55:00 Test Item Value Reference Range Interpretation Comments Lymphocytes # (test code = Lymphocytes [phone] #) [facility]TpccqxlJKIAHYZRUY4049-69-53 12:55:00 Test Item Value Reference Range Interpretation Comments Monocytes # (test code = Monocytes #) 350 200-950 [facility]2021-10-07 12:55:00 Test Item Value Reference Range Interpretation Comments Creatinine Lvl (test code = Creatinine 0.49 0.50-1.05 Lvl) [facility]SfgjjzzEWRUSVUWFA4516-77-94 12:55:00 Test Item Value Reference Range Interpretation Comments Eosinophils # (test code = Eosinophils 72 15-500 #) [facility] ResourcesHuwnzhsIRZXMMFREP9168-61-07 12:55:00 Test Item Value Reference Range Interpretation Comments Basophils # (test code 29 See_Comment [Aut omated message] The = Basophils #) system which generated this result tra nsmitted reference range : <=200. The reference r brice was not used to int erpret this result as normal/abnormal . [facility] ResourcesErzakalTZBHCXVBUZ6317-83-87 12:55:00 Test Item Value Reference Range Interpretation Comments Segs (test code = Segs) 65.4 [place] 283611-10-07 12:55:00 Test Item Value Reference Range Interpretation Comments Lymphocytes (test code = Lymphocytes) 25.2 [place] 283611-10-07 12:55:00 Test Item Value Reference Range Interpretation Comments Monocytes (test code = Monocytes) 7.3 [facility] ResourcesNmykehvCAFURSSGGH8896-73-90 12:55:00 Test Item Value Reference Range Interpretation Comments Eosinophils (test code = Eosinophils) 1.5 [place] 283611-10-07 12:55:00 Test Item Value Reference Range Interpretation Comments Basophils (test code = Basophils) 0.6 [place] 283611-10-07 12:55:00 Test Item Value Reference Range Interpretation Comments Sed Rate (test code = Sed Rate) [facility]20[facility] 12:55:00 Test Item Value Reference Range Interpretation Comments C-REACTIVE PROTEIN (test code = 2.9 C-REACTIVE PROTEIN) [facility]2021-10-07 12:55:00 Test Item Value Reference Range Interpretation Comments eGFR NON-AFR. [place] (test code = 107 eGFR NON-AFR. [place]) [facility]2021-10-07 12:55:00 Test Item Value Reference Range Interpretation Comments Vitamin B12 Lvl (test code = Vitamin [phone] B12 Lvl) [facility]2021-10-07 12:55:00 Test Item Value Reference Range Interpretation Comments Glucose Lvl (test code = Glucose Lvl) 151 65-99 [facility]2021-10-07 12:55:00 Test Item Value Reference Range Interpretation Comments BUN (test code = BUN) 17 7-25 [facility]2021-10-07 12:55:00 Test Item Value Reference Range Interpretation Comments eGFR (test code = eGFR 124 ) [facility]2021-10-07 12:55:00 Test Item Value Reference Range Interpretation Comments Creatinine Lvl (test code = Creatinine 0.49 0.50-1.05 Lvl) [facility]2021-10-07 12:55:00 Test Item Value Reference Range Interpretation Comments eGFR NON-AFR. [place] (test code = 107 eGFR NON-AFR. [place]) [facility]2021-10-07 12:55:00 Test Item Value Reference Range Interpretation Comments eGFR (test code = eGFR 124 ) [facility]2021-10-07 12:55:00 Test Item Value Reference Range Interpretation Comments B/C Ratio (test code = B/C Ratio) 35 6-22 [facility]2021-10-07 12:55:00 Test Item Value Reference Range Interpretation Comments Sodium Lvl (test code = Sodium Lvl) 140 135-146 [place] 287411-10-07 12:55:00 Test Item Value Reference Range Interpretation Comments Potassium Lvl (test code = Potassium 4.0 3.5-5.3 Lvl) [facility]2021-10-07 12:55:00 Test Item Value Reference Range Interpretation Comments Chloride Lvl (test code = Chloride Lvl) 105 98-110 [facility]2021-10-07 12:55:00 Test Item Value Reference Range Interpretation Comments CO2 (test code = CO2) 29 20-32 [facility]2021-10-07 12:55:00 Test Item Value Reference Range Interpretation Comments Calcium Lvl (test code = Calcium Lvl) 8.7 8.6-10.4 [place] 287411-10-07 12:55:00 Test Item Value Reference Range Interpretation Comments Total Protein (test code = Total 6.8 6.1-8.1 Protein) [facility]2021-10-07 12:55:00 Test Item Value Reference Range Interpretation Comments B/C Ratio (test code = B/C Ratio) 35 6-22 [facility]2021-10-07 12:55:00 Test Item Value Reference Range Interpretation Comments Albumin Lvl (test code = Albumin Lvl) 3.7 3.6-5.1 [place] 287411-10-07 12:55:00 Test Item Value Reference Range Interpretation Comments Globulin (test code = Globulin) 3.1 1.9-3.7 [place] 287411-10-07 12:55:00 Test Item Value Reference Range Interpretation Comments A/G Ratio (test code = A/G Ratio) 1.2 1.0-2.5 [facility]2021-10-07 12:55:00 Test Item Value Reference Range Interpretation Comments Bili Total (test code = Bili Total) 0.6 0.2-1.2 [facility]2021-10-07 12:55:00 Test Item Value Reference Range Interpretation Comments Alk Phos (test code = Alk Phos) 59 37-153 [facility]2021-10-07 12:55:00 Test Item Value Reference Range Interpretation Comments ASPARTATE TRANSAMINASE (test code = 18 10-35 ASPARTATE TRANSAMINASE) [facility]2021-10-07 12:55:00 Test Item Value Reference Range Interpretation Comments ALANINE AMINOTRANSFERASE (test code = 23 6-29 ALANINE AMINOTRANSFERASE) [facility]AfonswgMUITOMVZIV8211-63-93 12:55:00 Test Item Value Reference Range Interpretation Comments WBC X 10x3 (test code = WBC X 10x3) 4.8 3.8-10.8 [facility] ResourcesVootaivSSEZKHZNUN9729-95-62 12:55:00 Test Item Value Reference Range Interpretation Comments RBC X 10x6 (test code = RBC X 10x6) 4.50 3.80-5.10 [place]3611-10-07 12:55:00 Test Item Value Reference Range Interpretation Comments Hgb (test code = Hgb) 12.1 11.7-15.5 [facility]2021-10-07 12:55:00 Test Item Value Reference Range Interpretation Comments Sodium Lvl (test code = Sodium Lvl) 140 135-146 [facility] ResourcesPfpkazpHRCMONWWNP5058-68-81 12:55:00 Test Item Value Reference Range Interpretation Comments Hct (test code = Hct) 37.8 35.0-45.0 [place] 283611-10-07 12:55:00 Test Item Value Reference Range Interpretation Comments MCV (test code = MCV) 84.0 80.0-100.0 [place] 283611-10-07 12:55:00 Test Item Value Reference Range Interpretation Comments MCH (test code = MCH) 26.9 pg 27.0-33.0 [place] 283611-10-07 12:55:00 Test Item Value Reference Range Interpretation Comments MCHC (test code = MCHC) 32.0 32.0-36.0 [place] 283611-10-07 12:55:00 Test Item Value Reference Range Interpretation Comments RDW (test code = RDW) 14.0 11.0-15.0 [place] [address]-10-07 12:55:00 Test Item Value Reference Range Interpretation Comments Platelet (test code = Platelet) 151 140-400 [facility] ResourcesWbtdfzpOFYOEUBWNO9094-94-96 12:55:00 Test Item Value Reference Range Interpretation Comments MPV (test code = MPV) 12.1 7.5-12.5 [place] 283611-10-07 12:55:00 Test Item Value Reference Range Interpretation Comments Neutrophils # (test code = Neutrophils [phone] #) [facility]PdggllsGUSDVLRKMU9399-05-51 12:55:00 Test Item Value Reference Range Interpretation Comments Lymphocytes # (test code = Lymphocytes [phone] #) [facility] ResourcesXibzpfwUBOXFYXSYX8824-52-03 12:55:00 Test Item Value Reference Range Interpretation Comments Monocytes # (test code = Monocytes #) 350 200-950 [facility]2021-10-07 12:55:00 Test Item Value Reference Range Interpretation Comments Potassium Lvl (test code = Potassium 4.0 3.5-5.3 Lvl) [facility] ResourcesFfztidwNOICOAMBCN9483-53-20 12:55:00 Test Item Value Reference Range Interpretation Comments Eosinophils # (test code = Eosinophils 72 15-500 #) [facility] ResourcesJxomoynRDJPZGSOMN1111-82-04 12:55:00 Test Item Value Reference Range Interpretation Comments Basophils # (test code 29 See_Comment [Aut omated message] The = Basophils #) system which generated this result tra nsmitted reference range : <=200. The reference r brice was not used to int erpret this result as normal/abnormal . [facility] ResourcesSntdhgxMKJBEARJVN3250-21-15 12:55:00 Test Item Value Reference Range Interpretation Comments Segs (test code = Segs) 65.4 [place] 283611-10-07 12:55:00 Test Item Value Reference Range Interpretation Comments Lymphocytes (test code = Lymphocytes) 25.2 [place] 283611-10-07 12:55:00 Test Item Value Reference Range Interpretation Comments Monocytes (test code = Monocytes) 7.3 [place] 283611-10-07 12:55:00 Test Item Value Reference Range Interpretation Comments Eosinophils (test code = Eosinophils) 1.5 [place] 283611-10-07 12:55:00 Test Item Value Reference Range Interpretation Comments Basophils (test code = Basophils) 0.6 [place] 283611-10-07 12:55:00 Test Item Value Reference Range Interpretation Comments Sed Rate (test code = Sed Rate) [facility]NUQ0495[facility]-99 12:55:00 Test Item Value Reference Range Interpretation Comments C-REACTIVE PROTEIN (test code = 2.9 C-REACTIVE PROTEIN) [facility]2021-10-07 12:55:00 Test Item Value Reference Range Interpretation Comments Chloride Lvl (test code = Chloride Lvl) 105 98-110 [facility]2021-10-07 12:55:00 Test Item Value Reference Range Interpretation Comments Vitamin B12 Lvl (test code = Vitamin 508 207-0167 B12 Lvl) [facility]2021-10-07 12:55:00 Test Item Value Reference Range Interpretation Comments Glucose Lvl (test code = Glucose Lvl) 151 65-99 [facility]2021-10-07 12:55:00 Test Item Value Reference Range Interpretation Comments BUN (test code = BUN) 17 7-25 [place] 287411-10-07 12:55:00 Test Item Value Reference Range Interpretation Comments CO2 (test code = CO2) 29 20-32 [facility]2021-10-07 12:55:00 Test Item Value Reference Range Interpretation Comments Creatinine Lvl (test code = Creatinine 0.49 0.50-1.05 Lvl) [facility]2021-10-07 12:55:00 Test Item Value Reference Range Interpretation Comments eGFR NON-AFR. [place] (test code = 107 eGFR NON-AFR. [place]) [facility]2021-10-07 12:55:00 Test Item Value Reference Range Interpretation Comments eGFR (test code = eGFR 124 ) [facility]2021-10-07 12:55:00 Test Item Value Reference Range Interpretation Comments B/C Ratio (test code = B/C Ratio) 35 6-22 [place] 287411-10-07 12:55:00 Test Item Value Reference Range Interpretation Comments Sodium Lvl (test code = Sodium Lvl) 140 135-146 [facility]2021-10-07 12:55:00 Test Item Value Reference Range Interpretation Comments Potassium Lvl (test code = Potassium 4.0 3.5-5.3 Lvl) [facility]2021-10-07 12:55:00 Test Item Value Reference Range Interpretation Comments Chloride Lvl (test code = Chloride Lvl) 105 98-110 [facility]2021-10-07 12:55:00 Test Item Value Reference Range Interpretation Comments CO2 (test code = CO2) 29 20-32 [facility]2021-10-07 12:55:00 Test Item Value Reference Range Interpretation Comments Calcium Lvl (test code = Calcium Lvl) 8.7 8.6-10.4 [facility]2021-10-07 12:55:00 Test Item Value Reference Range Interpretation Comments Total Protein (test code = Total 6.8 6.1-8.1 Protein) [facility]2021-10-07 12:55:00 Test Item Value Reference Range Interpretation Comments Calcium Lvl (test code = Calcium Lvl) 8.7 8.6-10.4 [facility]2021-10-07 12:55:00 Test Item Value Reference Range Interpretation Comments Albumin Lvl (test code = Albumin Lvl) 3.7 3.6-5.1 [facility]2021-10-07 12:55:00 Test Item Value Reference Range Interpretation Comments Globulin (test code = Globulin) 3.1 1.9-3.7 [place] 287411-10-07 12:55:00 Test Item Value Reference Range Interpretation Comments A/G Ratio (test code = A/G Ratio) 1.2 1.0-2.5 [facility]2021-10-07 12:55:00 Test Item Value Reference Range Interpretation Comments Bili Total (test code = Bili Total) 0.6 0.2-1.2 [place] 287411-10-07 12:55:00 Test Item Value Reference Range Interpretation Comments Alk Phos (test code = Alk Phos) 59 37-153 [facility]2021-10-07 12:55:00 Test Item Value Reference Range Interpretation Comments ASPARTATE TRANSAMINASE (test code = 18 10-35 ASPARTATE TRANSAMINASE) [facility]2021-10-07 12:55:00 Test Item Value Reference Range Interpretation Comments ALANINE AMINOTRANSFERASE (test code = 23 6-29 ALANINE AMINOTRANSFERASE) [facility]EppdoghAHCWLKLZGJ9502-92-36 12:55:00 Test Item Value Reference Range Interpretation Comments WBC X 10x3 (test code = WBC X 10x3) 4.8 3.8-10.8 [place] 283611-10-07 12:55:00 Test Item Value Reference Range Interpretation Comments RBC X 10x6 (test code = RBC X 10x6) 4.50 3.80-5.10 [facility] ResourcesDbczfdrTVGJLNKHNN6461-27-33 12:55:00 Test Item Value Reference Range Interpretation Comments Hgb (test code = Hgb) 12.1 11.7-15.5 [facility]2021-10-07 12:55:00 Test Item Value Reference Range Interpretation Comments Total Protein (test code = Total 6.8 6.1-8.1 Protein) [facility] ResourcesSoeliocJBSDUWIUFI5049-99-72 12:55:00 Test Item Value Reference Range Interpretation Comments Hct (test code = Hct) 37.8 35.0-45.0 [facility] ResourcesTvixeqaJAMAJCXPQD7770-18-32 12:55:00 Test Item Value Reference Range Interpretation Comments MCV (test code = MCV) 84.0 80.0-100.0 [place] 283611-10-07 12:55:00 Test Item Value Reference Range Interpretation Comments MCH (test code = MCH) 26.9 pg 27.0-33.0 [facility] ResourcesCuqjfkjIJMMKYDORJ5353-17-14 12:55:00 Test Item Value Reference Range Interpretation Comments MCHC (test code = MCHC) 32.0 32.0-36.0 [facility] ResourcesTegiejbDSLEFISZAA7417-59-62 12:55:00 Test Item Value Reference Range Interpretation Comments RDW (test code = RDW) 14.0 11.0-15.0 [facility] ResourcesIuhbhkbBUIYTABGOG7974-37-16 12:55:00 Test Item Value Reference Range Interpretation Comments Platelet (test code = Platelet) 151 140-400 [facility] ResourcesIigyrywZGZNAAKPPS8558-96-44 12:55:00 Test Item Value Reference Range Interpretation Comments MPV (test code = MPV) 12.1 7.5-12.5 [facility] ResourcesZnpqbcqHFNMZZEWWP6085-34-57 12:55:00 Test Item Value Reference Range Interpretation Comments Neutrophils # (test code = Neutrophils 1529 1726-9388 #) [facility] ResourcesAdavdepDVAEZLMSKM7744-39-79 12:55:00 Test Item Value Reference Range Interpretation Comments Lymphocytes # (test code = Lymphocytes 1900 010-8347 #) [place] 283611-10-07 12:55:00 Test Item Value Reference Range Interpretation Comments Monocytes # (test code = Monocytes #) 350 200-950 [facility]2021-10-07 12:55:00 Test Item Value Reference Range Interpretation Comments Albumin Lvl (test code = Albumin Lvl) 3.7 3.6-5.1 [facility] ResourcesHjnzndiOUXAXAICQU8683-62-12 12:55:00 Test Item Value Reference Range Interpretation Comments Eosinophils # (test code = Eosinophils 72 15-500 #) [facility] ResourcesZcrlwklDUEGVRANUF0792-65-16 12:55:00 Test Item Value Reference Range Interpretation Comments Basophils # (test code 29 See_Comment [Aut omated message] The = Basophils #) system which generated this result tra nsmitted reference range : <=200. The reference r brice was not used to int erpret this result as normal/abnormal . [facility] ResourcesDglnemnUHWFZALTDH9872-54-91 12:55:00 Test Item Value Reference Range Interpretation Comments Segs (test code = Segs) 65.4 [facility] ResourcesDwnjqpfRKBULJLKFN9886-05-45 12:55:00 Test Item Value Reference Range Interpretation Comments Lymphocytes (test code = Lymphocytes) 25.2 [facility] ResourcesGntekrhOFUHMYOJRI3309-30-98 12:55:00 Test Item Value Reference Range Interpretation Comments Monocytes (test code = Monocytes) 7.3 [facility] ResourcesYfzvjplHHATMITYVZ2411-74-97 12:55:00 Test Item Value Reference Range Interpretation Comments Eosinophils (test code = Eosinophils) 1.5 [facility] ResourcesAwktdeaOIJOCMYVAD9528-24-51 12:55:00 Test Item Value Reference Range Interpretation Comments Basophils (test code = Basophils) 0.6 [facility] ResourcesJdeqfoxGOHJTHWFKM4105-24-00 12:55:00 Test Item Value Reference Range Interpretation Comments Sed Rate (test code = Sed Rate) [facility]UyjwbzySMRREFQXVM7831-35-29 12:55:00 Test Item Value Reference Range Interpretation Comments C-REACTIVE PROTEIN (test code = 2.9 C-REACTIVE PROTEIN) [facility]2021-10-07 12:55:00 Test Item Value Reference Range Interpretation Comments Globulin (test code = Globulin) 3.1 1.9-3.7 [facility] HVTVB1013-40-02 12:55:00 Test Item Value Reference Range Interpretation Comments Vitamin B12 Lvl (test code = Vitamin [phone] B12 Lvl) [facility]2021-10-07 12:55:00 Test Item Value Reference Range Interpretation Comments Glucose Lvl (test code = Glucose Lvl) 151 65-99 [facility]2021-10-07 12:55:00 Test Item Value Reference Range Interpretation Comments BUN (test code = BUN) 17 7-25 [place] 287411-10-07 12:55:00 Test Item Value Reference Range Interpretation Comments A/G Ratio (test code = A/G Ratio) 1.2 1.0-2.5 [place] 287411-10-07 12:55:00 Test Item Value Reference Range Interpretation Comments Creatinine Lvl (test code = Creatinine 0.49 0.50-1.05 Lvl) [facility]2021-10-07 12:55:00 Test Item Value Reference Range Interpretation Comments eGFR NON-AFR. [place] (test code = 107 eGFR NON-AFR. [place]) [facility]2021-10-07 12:55:00 Test Item Value Reference Range Interpretation Comments eGFR (test code = eGFR 124 ) [facility]2021-10-07 12:55:00 Test Item Value Reference Range Interpretation Comments B/C Ratio (test code = B/C Ratio) 35 6-22 [facility]2021-10-07 12:55:00 Test Item Value Reference Range Interpretation Comments Sodium Lvl (test code = Sodium Lvl) 140 135-146 [place] 287411-10-07 12:55:00 Test Item Value Reference Range Interpretation Comments Potassium Lvl (test code = Potassium 4.0 3.5-5.3 Lvl) [place] 287411-10-07 12:55:00 Test Item Value Reference Range Interpretation Comments Chloride Lvl (test code = Chloride Lvl) 105 98-110 [place] 287411-10-07 12:55:00 Test Item Value Reference Range Interpretation Comments CO2 (test code = CO2) 29 20-32 [place] 287411-10-07 12:55:00 Test Item Value Reference Range Interpretation Comments Calcium Lvl (test code = Calcium Lvl) 8.7 8.6-10.4 [place] 287411-10-07 12:55:00 Test Item Value Reference Range Interpretation Comments Total Protein (test code = Total 6.8 6.1-8.1 Protein) [place] 287411-10-07 12:55:00 Test Item Value Reference Range Interpretation Comments Bili Total (test code = Bili Total) 0.6 0.2-1.2 [place] 287411-10-07 12:55:00 Test Item Value Reference Range Interpretation Comments Albumin Lvl (test code = Albumin Lvl) 3.7 3.6-5.1 [place] 287411-10-07 12:55:00 Test Item Value Reference Range Interpretation Comments Globulin (test code = Globulin) 3.1 1.9-3.7 [place] 287411-10-07 12:55:00 Test Item Value Reference Range Interpretation Comments A/G Ratio (test code = A/G Ratio) 1.2 1.0-2.5 [place] 287411-10-07 12:55:00 Test Item Value Reference Range Interpretation Comments Bili Total (test code = Bili Total) 0.6 0.2-1.2 [place] 287411-10-07 12:55:00 Test Item Value Reference Range Interpretation Comments Alk Phos (test code = Alk Phos) 59 37-153 [facility]2021-10-07 12:55:00 Test Item Value Reference Range Interpretation Comments ASPARTATE TRANSAMINASE (test code = 18 10-35 ASPARTATE TRANSAMINASE) [place] 287411-10-07 12:55:00 Test Item Value Reference Range Interpretation Comments ALANINE AMINOTRANSFERASE (test code = 23 6-29 ALANINE AMINOTRANSFERASE) [place] 283611-10-07 12:55:00 Test Item Value Reference Range Interpretation Comments WBC X 10x3 (test code = WBC X 10x3) 4.8 3.8-10.8 [place] 283611-10-07 12:55:00 Test Item Value Reference Range Interpretation Comments RBC X 10x6 (test code = RBC X 10x6) 4.50 3.80-5.10 [place] 283611-10-07 12:55:00 Test Item Value Reference Range Interpretation Comments Hgb (test code = Hgb) 12.1 11.7-15.5 [address]10-07 12:55:00 Test Item Value Reference Range Interpretation Comments Alk Phos (test code = Alk Phos) 59 37-153 [facility] ResourcesOwwekjfSRTVIOOMCK0307-38-52 12:55:00 Test Item Value Reference Range Interpretation Comments Hct (test code = Hct) 37.8 35.0-45.0 [facility] ResourcesUkbuvasGYKCGOXOCC0337-48-95 12:55:00 Test Item Value Reference Range Interpretation Comments MCV (test code = MCV) 84.0 80.0-100.0 [facility] ResourcesHlaknvhKLXSVMSNSA4281-22-05 12:55:00 Test Item Value Reference Range Interpretation Comments MCH (test code = MCH) 26.9 pg 27.0-33.0 [facility] ResourcesGyayfodWGMAUNAEAF7367-66-88 12:55:00 Test Item Value Reference Range Interpretation Comments MCHC (test code = MCHC) 32.0 32.0-36.0 [facility] ResourcesDdnwjdcDLCVZOLAGW9489-55-19 12:55:00 Test Item Value Reference Range Interpretation Comments RDW (test code = RDW) 14.0 11.0-15.0 [facility] ResourcesBajeihvLHIKQHQHQM3239-46-46 12:55:00 Test Item Value Reference Range Interpretation Comments Platelet (test code = Platelet) 151 140-400 [facility] ResourcesNygbbrbJIZVHPVIMN4915-22-30 12:55:00 Test Item Value Reference Range Interpretation Comments MPV (test code = MPV) 12.1 7.5-12.5 [facility] ResourcesWskomwqUVYYOLKLYX8777-78-00 12:55:00 Test Item Value Reference Range Interpretation Comments Neutrophils # (test code = Neutrophils 3139 3891-1602 #) [facility] ResourcesKblgwpxXPGSZKKQHP1260-90-90 12:55:00 Test Item Value Reference Range Interpretation Comments Lymphocytes # (test code = Lymphocytes [phone] #) [facility] ResourcesHwoubakMIZYQOMDBE9513-03-93 12:55:00 Test Item Value Reference Range Interpretation Comments Monocytes # (test code = Monocytes #) 350 200-950 [facility]2021-10-07 12:55:00 Test Item Value Reference Range Interpretation Comments ASPARTATE TRANSAMINASE (test code = 18 10-35 ASPARTATE TRANSAMINASE) [facility] ResourcesYrwxpiaXHQCLRQJLR8858-37-09 12:55:00 Test Item Value Reference Range Interpretation Comments Eosinophils # (test code = Eosinophils 72 15-500 #) [place] [address]-10-07 12:55:00 Test Item Value Reference Range Interpretation Comments Basophils # (test code 29 See_Comment [Aut omated message] The = Basophils #) system which generated this result tra nsmitted reference range : <=200. The reference r brice was not used to int erpret this result as normal/abnormal . [facility] ResourcesVsnnxdxHTNKQTBLJE3048-53-66 12:55:00 Test Item Value Reference Range Interpretation Comments Segs (test code = Segs) 65.4 [place] 283611-10-07 12:55:00 Test Item Value Reference Range Interpretation Comments Lymphocytes (test code = Lymphocytes) 25.2 [place] 283611-10-07 12:55:00 Test Item Value Reference Range Interpretation Comments Monocytes (test code = Monocytes) 7.3 [facility] ResourcesHhfrckqVWVKKPGZFN9550-01-38 12:55:00 Test Item Value Reference Range Interpretation Comments Eosinophils (test code = Eosinophils) 1.5 [place] 283611-10-07 12:55:00 Test Item Value Reference Range Interpretation Comments Basophils (test code = Basophils) 0.6 [place] 283611-10-07 12:55:00 Test Item Value Reference Range Interpretation Comments Sed Rate (test code = Sed Rate) [facility]pasRSEULRLCZF7795[facility]-15 12:55:00 Test Item Value Reference Range Interpretation Comments C-REACTIVE PROTEIN (test code = 2.9 C-REACTIVE PROTEIN) [facility]2021-10-07 12:55:00 Test Item Value Reference Range Interpretation Comments ALANINE AMINOTRANSFERASE (test code = 23 6-29 ALANINE AMINOTRANSFERASE) [facility]2021-10-07 12:55:00 Test Item Value Reference Range Interpretation Comments Vitamin B12 Lvl (test code = Vitamin [phone] B12 Lvl) [facility]2021-10-07 12:55:00 Test Item Value Reference Range Interpretation Comments Glucose Lvl (test code = Glucose Lvl) 151 65-99 [facility]2021-10-07 12:55:00 Test Item Value Reference Range Interpretation Comments BUN (test code = BUN) 17 7-25 [place] 283611-10-07 12:55:00 Test Item Value Reference Range Interpretation Comments WBC X 10x3 (test code = WBC X 10x3) 4.8 3.8-10.8 [facility]2021-10-07 12:55:00 Test Item Value Reference Range Interpretation Comments Creatinine Lvl (test code = Creatinine 0.49 0.50-1.05 Lvl) [facility]2021-10-07 12:55:00 Test Item Value Reference Range Interpretation Comments eGFR NON-AFR. [place] (test code = 107 eGFR NON-AFR. [place]) [facility]2021-10-07 12:55:00 Test Item Value Reference Range Interpretation Comments eGFR (test code = eGFR 124 ) [place] 287411-10-07 12:55:00 Test Item Value Reference Range Interpretation Comments B/C Ratio (test code = B/C Ratio) 35 6-22 [place] 287411-10-07 12:55:00 Test Item Value Reference Range Interpretation Comments Sodium Lvl (test code = Sodium Lvl) 140 135-146 [place] 287411-10-07 12:55:00 Test Item Value Reference Range Interpretation Comments Potassium Lvl (test code = Potassium 4.0 3.5-5.3 Lvl) [facility]2021-10-07 12:55:00 Test Item Value Reference Range Interpretation Comments Chloride Lvl (test code = Chloride Lvl) 105 98-110 [facility]2021-10-07 12:55:00 Test Item Value Reference Range Interpretation Comments CO2 (test code = CO2) 29 20-32 [place] 287411-10-07 12:55:00 Test Item Value Reference Range Interpretation Comments Calcium Lvl (test code = Calcium Lvl) 8.7 8.6-10.4 [facility]2021-10-07 12:55:00 Test Item Value Reference Range Interpretation Comments Total Protein (test code = Total 6.8 6.1-8.1 Protein) [facility] ServicesOxthwihVUUEBCGWRD2341-87-12 12:55:00 Test Item Value Reference Range Interpretation Comments RBC X 10x6 (test code = RBC X 10x6) 4.50 3.80-5.10 [place] 287411-10-07 12:55:00 Test Item Value Reference Range Interpretation Comments Albumin Lvl (test code = Albumin Lvl) 3.7 3.6-5.1 [facility]2021-10-07 12:55:00 Test Item Value Reference Range Interpretation Comments Globulin (test code = Globulin) 3.1 1.9-3.7 [place] 287411-10-07 12:55:00 Test Item Value Reference Range Interpretation Comments A/G Ratio (test code = A/G Ratio) 1.2 1.0-2.5 [place] 287411-10-07 12:55:00 Test Item Value Reference Range Interpretation Comments Bili Total (test code = Bili Total) 0.6 0.2-1.2 [place] 287411-10-07 12:55:00 Test Item Value Reference Range Interpretation Comments Alk Phos (test code = Alk Phos) 59 37-153 [place] 287411-10-07 12:55:00 Test Item Value Reference Range Interpretation Comments ASPARTATE TRANSAMINASE (test code = 18 10-35 ASPARTATE TRANSAMINASE) [place] 287411-10-07 12:55:00 Test Item Value Reference Range Interpretation Comments ALANINE AMINOTRANSFERASE (test code = 23 6-29 ALANINE AMINOTRANSFERASE) [place] 283611-10-07 12:55:00 Test Item Value Reference Range Interpretation Comments WBC X 10x3 (test code = WBC X 10x3) 4.8 3.8-10.8 [place] 283611-10-07 12:55:00 Test Item Value Reference Range Interpretation Comments RBC X 10x6 (test code = RBC X 10x6) 4.50 3.80-5.10 [place] 283611-10-07 12:55:00 Test Item Value Reference Range Interpretation Comments Hgb (test code = Hgb) 12.1 11.7-15.5 [place] 283611-10-07 12:55:00 Test Item Value Reference Range Interpretation Comments Hgb (test code = Hgb) 12.1 11.7-15.5 [place] 283611-10-07 12:55:00 Test Item Value Reference Range Interpretation Comments Hct (test code = Hct) 37.8 35.0-45.0 [place] 283611-10-07 12:55:00 Test Item Value Reference Range Interpretation Comments MCV (test code = MCV) 84.0 80.0-100.0 [place] [address]-10-07 12:55:00 Test Item Value Reference Range Interpretation Comments MCH (test code = MCH) 26.9 pg 27.0-33.0 [facility]KsdazcgTGPMSXKTLE4252-01-43 12:55:00 Test Item Value Reference Range Interpretation Comments MCHC (test code = MCHC) 32.0 32.0-36.0 [facility] ResourcesDicyssxYOCYMRNOXT9183-89-59 12:55:00 Test Item Value Reference Range Interpretation Comments RDW (test code = RDW) 14.0 11.0-15.0 [place] 283611-10-07 12:55:00 Test Item Value Reference Range Interpretation Comments Platelet (test code = Platelet) 151 140-400 [facility] ResourcesKjimccpFATLIIENFN8154-07-07 12:55:00 Test Item Value Reference Range Interpretation Comments MPV (test code = MPV) 12.1 7.5-12.5 [facility] ResourcesSilkdtmGPDXJBJIMQ2036-29-37 12:55:00 Test Item Value Reference Range Interpretation Comments Neutrophils # (test code = Neutrophils [phone] #) [facility] ResourcesVmmsmnwWBWXHEDEBR5572-63-89 12:55:00 Test Item Value Reference Range Interpretation Comments Lymphocytes # (test code = Lymphocytes [phone] #) [facility] ResourcesAqdfpmwSLLXWWAGKG6049-74-84 12:55:00 Test Item Value Reference Range Interpretation Comments Monocytes # (test code = Monocytes #) 350 200-950 [facility] ResourcesAnjdqmaCCNJLXYFIG2607-91-33 12:55:00 Test Item Value Reference Range Interpretation Comments Hct (test code = Hct) 37.8 35.0-45.0 [facility] ResourcesOwclzrtKMPYZXXYEY8711-75-90 12:55:00 Test Item Value Reference Range Interpretation Comments Eosinophils # (test code = Eosinophils 72 15-500 #) [facility] ResourcesLgjkdgaPHFXWGCNJB7656-20-01 12:55:00 Test Item Value Reference Range Interpretation Comments Basophils # (test code 29 See_Comment [Aut omated message] The = Basophils #) system which generated this result tra nsmitted reference range : <=200. The reference r brice was not used to int erpret this result as normal/abnormal . [facility] ResourcesUcrpyuzLTXUOIRUVB5976-74-02 12:55:00 Test Item Value Reference Range Interpretation Comments Segs (test code = Segs) 65.4 [place] 283611-10-07 12:55:00 Test Item Value Reference Range Interpretation Comments Lymphocytes (test code = Lymphocytes) 25.2 [place] 283611-10-07 12:55:00 Test Item Value Reference Range Interpretation Comments Monocytes (test code = Monocytes) 7.3 [place] [address]-10-07 12:55:00 Test Item Value Reference Range Interpretation Comments Eosinophils (test code = Eosinophils) 1.5 [place] [address]-10-07 12:55:00 Test Item Value Reference Range Interpretation Comments Basophils (test code = Basophils) 0.6 [place] [address]-10-07 12:55:00 Test Item Value Reference Range Interpretation Comments Sed Rate (test code = Sed Rate) 22 [facility]YjifhcnJTHUTUMOTA5373-15-33 12:55:00 Test Item Value Reference Range Interpretation Comments C-REACTIVE PROTEIN (test code = 2.9 C-REACTIVE PROTEIN) [place] 283611-10-07 12:55:00 Test Item Value Reference Range Interpretation Comments MCV (test code = MCV) 84.0 80.0-100.0 [facility]2021-10-07 12:55:00 Test Item Value Reference Range Interpretation Comments Vitamin B12 Lvl (test code = Vitamin 097 047-9298 B12 Lvl) [facility]2021-10-07 12:55:00 Test Item Value Reference Range Interpretation Comments Glucose Lvl (test code = Glucose Lvl) 151 65-99 [facility]2021-10-07 12:55:00 Test Item Value Reference Range Interpretation Comments BUN (test code = BUN) 17 7-25 [place] 283611-10-07 12:55:00 Test Item Value Reference Range Interpretation Comments MCH (test code = MCH) 26.9 pg 27.0-33.0 [facility]2021-10-07 12:55:00 Test Item Value Reference Range Interpretation Comments Creatinine Lvl (test code = Creatinine 0.49 0.50-1.05 Lvl) [facility]2021-10-07 12:55:00 Test Item Value Reference Range Interpretation Comments eGFR NON-AFR. [place] (test code = 107 eGFR NON-AFR. [place]) [facility]2021-10-07 12:55:00 Test Item Value Reference Range Interpretation Comments eGFR (test code = eGFR 124 ) [place] 287411-10-07 12:55:00 Test Item Value Reference Range Interpretation Comments B/C Ratio (test code = B/C Ratio) 35 6-22 [place] 287411-10-07 12:55:00 Test Item Value Reference Range Interpretation Comments Sodium Lvl (test code = Sodium Lvl) 140 135-146 [place] 287411-10-07 12:55:00 Test Item Value Reference Range Interpretation Comments Potassium Lvl (test code = Potassium 4.0 3.5-5.3 Lvl) [place] 287411-10-07 12:55:00 Test Item Value Reference Range Interpretation Comments Chloride Lvl (test code = Chloride Lvl) 105 98-110 [place] 287411-10-07 12:55:00 Test Item Value Reference Range Interpretation Comments CO2 (test code = CO2) 29 20-32 [place] 287411-10-07 12:55:00 Test Item Value Reference Range Interpretation Comments Calcium Lvl (test code = Calcium Lvl) 8.7 8.6-10.4 [facility]2021-10-07 12:55:00 Test Item Value Reference Range Interpretation Comments Total Protein (test code = Total 6.8 6.1-8.1 Protein) [facility] ResourcesSypgjsyTNAVFWYQKM8238-69-56 12:55:00 Test Item Value Reference Range Interpretation Comments MCHC (test code = MCHC) 32.0 32.0-36.0 [place] 287411-10-07 12:55:00 Test Item Value Reference Range Interpretation Comments Albumin Lvl (test code = Albumin Lvl) 3.7 3.6-5.1 [facility]2021-10-07 12:55:00 Test Item Value Reference Range Interpretation Comments Globulin (test code = Globulin) 3.1 1.9-3.7 [place] 287411-10-07 12:55:00 Test Item Value Reference Range Interpretation Comments A/G Ratio (test code = A/G Ratio) 1.2 1.0-2.5 [place] 287411-10-07 12:55:00 Test Item Value Reference Range Interpretation Comments Bili Total (test code = Bili Total) 0.6 0.2-1.2 [facility]2021-10-07 12:55:00 Test Item Value Reference Range Interpretation Comments Alk Phos (test code = Alk Phos) 59 37-153 [facility]2021-10-07 12:55:00 Test Item Value Reference Range Interpretation Comments ASPARTATE TRANSAMINASE (test code = 18 10-35 ASPARTATE TRANSAMINASE) [place] 287411-10-07 12:55:00 Test Item Value Reference Range Interpretation Comments ALANINE AMINOTRANSFERASE (test code = 23 6-29 ALANINE AMINOTRANSFERASE) [place] 283611-10-07 12:55:00 Test Item Value Reference Range Interpretation Comments WBC X 10x3 (test code = WBC X 10x3) 4.8 3.8-10.8 [place] 283611-10-07 12:55:00 Test Item Value Reference Range Interpretation Comments RBC X 10x6 (test code = RBC X 10x6) 4.50 3.80-5.10 [place] 283611-10-07 12:55:00 Test Item Value Reference Range Interpretation Comments Hgb (test code = Hgb) 12.1 11.7-15.5 [place] 283611-10-07 12:55:00 Test Item Value Reference Range Interpretation Comments RDW (test code = RDW) 14.0 11.0-15.0 [place] 283611-10-07 12:55:00 Test Item Value Reference Range Interpretation Comments Hct (test code = Hct) 37.8 35.0-45.0 [place] 283611-10-07 12:55:00 Test Item Value Reference Range Interpretation Comments MCV (test code = MCV) 84.0 80.0-100.0 [place] [address]-10-07 12:55:00 Test Item Value Reference Range Interpretation Comments MCH (test code = MCH) 26.9 pg 27.0-33.0 [place] 283611-10-07 12:55:00 Test Item Value Reference Range Interpretation Comments MCHC (test code = MCHC) 32.0 32.0-36.0 [place] [address]-10-07 12:55:00 Test Item Value Reference Range Interpretation Comments RDW (test code = RDW) 14.0 11.0-15.0 [facility] ResourcesQgiatfsWTOOSSNMVM5816-01-19 12:55:00 Test Item Value Reference Range Interpretation Comments Platelet (test code = Platelet) 151 140-400 [facility] ResourcesJfiuwcyWKIGSFIQIN1469-34-12 12:55:00 Test Item Value Reference Range Interpretation Comments MPV (test code = MPV) 12.1 7.5-12.5 [place] 283611-10-07 12:55:00 Test Item Value Reference Range Interpretation Comments Neutrophils # (test code = Neutrophils [phone] #) [facility] ResourcesMvotqbbOPHLCLGMOB8039-50-08 12:55:00 Test Item Value Reference Range Interpretation Comments Lymphocytes # (test code = Lymphocytes [phone] #) [facility] ResourcesXjciamvKOVBGNDCFH2969-71-87 12:55:00 Test Item Value Reference Range Interpretation Comments Monocytes # (test code = Monocytes #) 350 200-950 [facility] ResourcesNyqomivUDBNQIOIOH7630-71-36 12:55:00 Test Item Value Reference Range Interpretation Comments Platelet (test code = Platelet) 151 140-400 [facility] ResourcesEtptagvRWCCYRKFUL5938-81-00 12:55:00 Test Item Value Reference Range Interpretation Comments Eosinophils # (test code = Eosinophils 72 15-500 #) [facility] ResourcesNkzvihyUPSYGYHVMH7500-46-94 12:55:00 Test Item Value Reference Range Interpretation Comments Basophils # (test code 29 See_Comment [Aut omated message] The = Basophils #) system which generated this result tra nsmitted reference range : <=200. The reference r brice was not used to int erpret this result as normal/abnormal . [facility] ResourcesRibjtikGADSFWZWQA4696-40-00 12:55:00 Test Item Value Reference Range Interpretation Comments Segs (test code = Segs) 65.4 [facility] ResourcesJrhavkkGWPKUPBEFP9827-28-63 12:55:00 Test Item Value Reference Range Interpretation Comments Lymphocytes (test code = Lymphocytes) 25.2 [place] 283611-10-07 12:55:00 Test Item Value Reference Range Interpretation Comments Monocytes (test code = Monocytes) 7.3 [place] 283611-10-07 12:55:00 Test Item Value Reference Range Interpretation Comments Eosinophils (test code = Eosinophils) 1.5 [facility] ResourcesMxrtisfICGJFHLUJI1602-32-03 12:55:00 Test Item Value Reference Range Interpretation Comments Basophils (test code = Basophils) 0.6 [place] 283611-10-07 12:55:00 Test Item Value Reference Range Interpretation Comments Sed Rate (test code = Sed Rate) 22 [facility]RbjuvmwVHTEYTQZHZ0791-00-45 12:55:00 Test Item Value Reference Range Interpretation Comments C-REACTIVE PROTEIN (test code = 2.9 C-REACTIVE PROTEIN) [place] 283611-10-07 12:55:00 Test Item Value Reference Range Interpretation Comments MPV (test code = MPV) 12.1 7.5-12.5 [facility]2021-10-07 12:55:00 Test Item Value Reference Range Interpretation Comments Vitamin B12 Lvl (test code = Vitamin [phone] B12 Lvl) [facility]2021-10-07 12:55:00 Test Item Value Reference Range Interpretation Comments Glucose Lvl (test code = Glucose Lvl) 151 65-99 [place] 287411-10-07 12:55:00 Test Item Value Reference Range Interpretation Comments BUN (test code = BUN) 17 7-25 [place] 283611-10-07 12:55:00 Test Item Value Reference Range Interpretation Comments Neutrophils # (test code = Neutrophils [phone] #) [facility]2021-10-07 12:55:00 Test Item Value Reference Range Interpretation Comments Creatinine Lvl (test code = Creatinine 0.49 0.50-1.05 Lvl) [facility]2021-10-07 12:55:00 Test Item Value Reference Range Interpretation Comments eGFR NON-AFR. [place] (test code = 107 eGFR NON-AFR. [place]) [facility]2021-10-07 12:55:00 Test Item Value Reference Range Interpretation Comments eGFR (test code = eGFR 124 ) [facility]2021-10-07 12:55:00 Test Item Value Reference Range Interpretation Comments B/C Ratio (test code = B/C Ratio) 35 6-22 [facility]2021-10-07 12:55:00 Test Item Value Reference Range Interpretation Comments Sodium Lvl (test code = Sodium Lvl) 140 135-146 [place] 287411-10-07 12:55:00 Test Item Value Reference Range Interpretation Comments Potassium Lvl (test code = Potassium 4.0 3.5-5.3 Lvl) [facility] [id number] 12:55:00 Test Item Value Reference Range Interpretation Comments Chloride Lvl (test code = Chloride Lvl) 105 98-110 [facility]2021-10-07 12:55:00 Test Item Value Reference Range Interpretation Comments CO2 (test code = CO2) 29 20-32 [facility] CenterNomi [id number] 12:55:00 Test Item Value Reference Range Interpretation Comments Calcium Lvl (test code = Calcium Lvl) 8.7 8.6-10.4 [facility]Neighbortree.comSELECT [facility] [id number] 12:55:00 Test Item Value Reference Range Interpretation Comments Total Protein (test code = Total 6.8 6.1-8.1 Protein) [facility] ServicesVyaqyekNXHQDZQCXT4892-83-51 12:55:00 Test Item Value Reference Range Interpretation Comments Lymphocytes # (test code = Lymphocytes [phone] #) [facility] [id number] 12:55:00 Test Item Value Reference Range Interpretation Comments Albumin Lvl (test code = Albumin Lvl) 3.7 3.6-5.1 [facility] [id number] 12:55:00 Test Item Value Reference Range Interpretation Comments Globulin (test code = Globulin) 3.1 1.9-3.7 [facility] CenterLip[facility] Geiwemq5545-28-95 22:09:00 Test Item Value Reference Range Interpretation Comments Cholesterol (test 107 mg/dL 0-200 N code = CHOL) Triglycerides (test 76 mg/dL 9-200 N code = TRIG) HDL (test code = 36 mg/dL 50-60 L HDL) Chol/HDL (test code 3.0 Ratio 0.0-4.4 N = CHOLPHDL) LDL, Calculated 56 0-130 N (NOTE)RISK O F HEART (test code = LDLC) DISEASEPu blished by [place] Heart AssociationAnal yte Optimal Boderl ine Increased RiskC HOL <200 200-239 >240TRI G <150 150-199 >200HDL Male: >60 <40HDL Fema le: >60 <50LDL <100 130 -159 >160LDL NEAR OP TIMAL IS 100-129 VLDL (test code = 15 mg/dL 5-40 N VLDL) LDL/HDL (test code = 2 LDLPHDL) Comprehensive Metabolic [id number] 22:09:00 Test Item Value Reference Range Interpretation [...] ofage have not been validated by th norman MDRD study and jovanny lin be interpretedwith caution.eGFR Re sult Interpretation: eGFR > or = 60 is in t he Normal RangeeGF R < 60 may mean kidney diseaseeGFR < 1 5 may mean kidney failureRange s recommended by the National Kidney Foundation,http ://nkd ep.nih.gov Kmu-[id number] 22:05:00 Test Item Value Reference Range Interpretation Comments NT ProBnp (test code = PBNP) 1920 pg/mL 0-124 H CBC with Eindzickcwjh2175-46-85 18:24:00 Test Item Value Reference Range Interpretation [...] code = ALYMPH) 1.4 K/cumm 0.5-4.6 N Starr Abs (test code = AMONO) 0.3 K/cumm 0.0-1.2 N Eos Abs (test code = AEOS) 0.09 K/cumm 0.00-0.74 N Baso Abs (test code = ABASO) 0.0 K/cumm 0.00-0.21 N HEMOGLOBIN A1C Test Item Value Reference Range Interpretation Comments A1C (test code = 4548-4) 6.8% SARS-COV 2 AntigenSARS-COV 2 Antigen"
[2023-01-21 00:21] LABS: Absolute Lymphocytes (CBC) 2.4 K/uL (0.7-4.9); Hematocrit 41.4 % (36.0-45.0); Lymphocytes % 34.1 % (15.3-44.8); MPV 10.7 fL (7.6-11.3); Platelets 166 thou/uL (152-406); RBC Red Blood Cell Count 4.71 M/uL (3.86-4.86)
[2023-01-21 00:22] LABS: Protime INR 1.11
[2023-01-21] MEDS ORDERED: MECLIZINE HCL 12.5 MG TAB ONE (00:22)
[2023-01-21] MEDS ORDERED: ONDANSETRON 4 MG/2 ML VIAL ONE (00:22)
[2023-01-21 00:39] LABS: Magnesium 2.2 mg/dL (1.6-2.4); Potassium 3.2 mEq/L (3.5-5.1)
--- NOTE | 2023-01-21 02:18 | ER ---
Nurse's Notes [facility] Name: Sukh York Age: 62 yrs Sex: Female : 1960 Arrival Date: 01/20/2023 Time: 23:22 Bed 4 Private MD: Lucy Schaeffer Diagnosis: Dizziness and giddiness;Hypokalemia;Shortness of breath Presentation: 01/20 23:47 Chief complaint: Patient states: I was laying down and it felt like my defibrillator is vc1 doing weird things. I lay down and feel dizzy and I got a sharp pain. It felt like it was jiggling. It did the same thing last year then about 45 minutes later it went off. Coronavirus screen: Vaccine status: Patient reports receiving the 2nd dose of the covid vaccine. Moderna Client denies travel out of the [place] in the last 14 days. At this time, the client does not indicate any symptoms associated with coronavirus-19. Ebola Screen: Patient negative for fever greater than or equal to 101.5 degrees Fahrenheit, and additional compatible Ebola Virus Disease symptoms Patient denies exposure to infectious person. Patient denies travel to an Ebola-affected area in the 21 days before illness onset. No symptoms or risks identified at this time. Initial Sepsis Screen: Does the patient meet any 2 criteria? No. Patient's initial sepsis screen is negative. Does the patient have a suspected source of infection? No. Patient's initial sepsis screen is negative. Risk Assessment: Do you want to hurt yourself or someone else? Patient reports no desire to harm self or others. Onset of symptoms was January 20, 2023. 23:47 Method Of Arrival: Ambulatory vc1 23:47 Acuity: RADHA 3 vc1 Triage Assessment: 01/21 00:01 General: Appears in no apparent distress. comfortable, Behavior is calm, cooperative, vc1 appropriate for age. Pain: Denies pain. EENT: No deficits noted. No signs and/or symptoms were reported regarding the EENT system. Neuro: Level of Consciousness is awake, alert, obeys commands, Oriented to person, place, time, situation, Appropriate for age. Cardiovascular: No deficits noted. Respiratory: Airway is patent Respiratory effort is even, unlabored, Respiratory pattern is regular, symmetrical. GI: No deficits noted. No signs and/or symptoms were reported involving the gastrointestinal system. : No deficits noted. No signs and/or symptoms were reported regarding the genitourinary system. Derm: No deficits noted. No signs and/or symptoms reported regarding the dermatologic system. Musculoskeletal: No deficits noted. No signs and/or symptoms reported regarding the musculoskeletal system. Historical: - Allergies: 01/20 23:47 PENICILLINS; vc1 - PMHx: 23:47 Aneurysm; CHF; COPD; Diabetes - NIDDM; Hypertension; vc1 - PSHx: 23:47 defibrillator; vc1 - Immunization history:: Client reports receiving the 2nd dose of the Covid vaccine. - Social history:: Smoking status: Patient denies any tobacco usage or history of. Screenin/05 00:02 [facility] ED Fall Risk Assessment (Adult) History of falling in the last 3 months, vc1 including since admission No falls in past 3 months (0 pts) Confusion or Disorientation No (0 pts) Intoxicated or Sedated No (0 pts) Impaired Gait No (0 pts) Mobility Assist Device Used No (0 pt) Altered Elimination No (0 pt) Score/Fall Risk Level 0 - 2 = Low Risk Oriented to surroundings, Maintained a safe environment, Educated pt \T\ family on fall prevention, incl call for assistance when getting out of bed. Abuse screen: Denies threats or abuse. Nutritional screening: No deficits noted. Tuberculosis screening: No symptoms or risk factors identified. Assessment: 00:30 Reassessment: No changes from previously documented assessment. Patient and/or family vc1 updated on plan of care and expected duration. Pain level reassessed. Patient is alert, oriented x 3, equal unlabored respirations, skin warm/dry/pink. 01:30 Reassessment: No changes from previously documented assessment. Patient and/or family vc1 updated on plan of care and expected duration. Pain level reassessed. Patient is alert, oriented x 3, equal unlabored respirations, skin warm/dry/pink. 02:11 Reassessment: Patient appears in no apparent distress at this time. Patient is alert, bp oriented x 3, equal unlabored respirations, skin warm/dry/pink. 02:34 Reassessment: DC HOME AMBULATORY. bp Vital Signs: 01/20 23:47 BP 104 / 70; Pulse 80; Resp 12; Temp 98.3; Pulse Ox 100% ; Weight 113.4 kg; Height 5 vc1 ft. 1 in. ; Pain 0/10; 01/21 00:28 BP 116 / 59 Supine; Pulse 71; bp 00:30 BP 115 / 81 Sitting; Pulse 71; Resp 21; Pulse Ox 100% ; bp 02:11 BP 118 / 72; Pulse 65; Resp 16; Pulse Ox 96% ; bp 01/20 23:47 Body Mass Index 47.24 (113.40 kg, 154.94 cm) vc1 01/20 23:47 Pain Scale: Adult vc1 ED Course: 01/20 23:24 Patient arrived in ED. mr 23:24 Christopher Schaeffera is Private Physician. mr 23:38 Gus Moore PA is PHCP. cp 23:38 Gus San MD is Attending Physician. cp 23:47 Arm band placed on right wrist. vc1 23:47 Patient has correct armband on for positive identification. Bed in low position. Call vc1 light in reach. Client placed on continuous cardiac and pulse oximetry monitoring. NIBP monitoring applied. 23:49 Josiah Benitez, RN is Primary Nurse. bp 23:57 Inserted saline lock: 20 gauge in right antecubital area, using aseptic technique. bp Blood collected. 01/21 00:00 Triage completed. vc1 00:18 CT Head Brain wo Cont In Process Unspecified. EDMS 00:45 XRAY Chest (1 view) In Process Unspecified. EDMS 02:34 No provider procedures requiring assistance completed. IV discontinued, intact, bp bleeding controlled, No redness/swelling at site. Pressure dressing applied. 02:34 Provided Education on: N/A. bp Administered Medications: 00:33 Drug: Meclizine PO 25 mg Route: PO; bp 02:16 Follow up: Response: No adverse reaction bp 00:33 Drug: Ondansetron IVP 4 mg Route: IVP; Site: right antecubital; bp 02:16 Follow up: Response: No adverse reaction bp 02:16 Drug: Potassium PO Effervescent Tablet 50 mEq Route: PO; bp 02:16 Follow up: Response: No adverse reaction bp Medication: 00:02 VIS not applicable for this client. vc1 Outcome: 02:17 Discharge ordered by . cp 02:34 Discharged to home ambulatory, with family. bp 02:34 Condition: stable 02:34 Discharge instructions given to patient, Instructed on discharge instructions, follow up and referral plans. medication usage, Demonstrated understanding of instructions, follow-up care, medications, Prescriptions given X 2. 02:35 Patient left the ED. bp Signatures: Dispatcher [employer] EDUT Yakelin Jones mr Gus Moore, Josiah Barraza cp RN RN bp Calcote, Sandhya RN RN vc1 Corrections: (The following items were deleted from the chart) 00:34 00:30 BP 115 / 81; Pulse 71bpm; Resp 21bpm; Pulse Ox 100%; vc1 bp
--- NOTE | 2023-01-21 02:18 | EDPHYS ---
Physician Documentation [facility] Name: Sukh York Age: 62 yrs Sex: Female : 1960 Arrival Date: 01/20/2023 Time: 23:22 Bed 4 Private MD: Lucy Schaeffer ED Physician Gus San HPI: 01/20 23:49 This 62 yrs old Female presents to ER via Unassigned with complaints of cp Dizziness. 23:50 The patient presents with dizziness, generalized weakness, lightheadedness. Onset: The cp symptoms/episode began/occurred today. 23:50 Context: occurred while the patient was lying down, just prior to the episode the cp patient experienced palpitations. 23:50 Associated signs and symptoms: Pertinent positives: shortness of breath, Pertinent cp negatives: abdominal pain, chest pain, focal weakness, headache, near-syncope, numbness, syncope, vomiting. Patient's baseline: Neuro: alert and fully oriented, Motor: no deficits, Ambulation: walks without assistance, Speech: normal. Patient denies being shocked by defibrillator. Historical: - Allergies: 23:47 PENICILLINS; vc1 - PMHx: 23:47 Aneurysm; CHF; COPD; Diabetes - NIDDM; Hypertension; vc1 - PSHx: 23:47 defibrillator; vc1 - Immunization history:: Client reports receiving the 2nd dose of the Covid vaccine. - Social history:: Smoking status: Patient denies any tobacco usage or history of. ROS: 23:55 Constitutional: Negative for body aches, chills, fever, poor PO intake. cp 23:55 Eyes: Negative for injury, pain, redness, and discharge. cp 23:55 ENT: Negative for drainage from ear(s), ear pain, sore throat, difficulty swallowing, difficulty handling secretions. 23:55 Cardiovascular: Positive for palpitations, Negative for chest pain, edema. 23:55 Respiratory: Positive for shortness of breath, at rest. Negative for cough, wheezing. 23:55 Abdomen/GI: Negative for abdominal pain, nausea, vomiting, and diarrhea. 23:55 : Negative for urinary symptoms. 23:55 Neuro: Positive for dizziness, weakness, Negative for altered mental status, headache, syncope, near syncope. 23:55 All other systems are negative. Exam: 23:42 ECG was reviewed by the Attending Physician. cp 23:59 Constitutional: The patient appears in no acute distress, alert, awake, comfortable, cp non-diaphoretic, non-toxic, well developed, well nourished, obese. 23:59 Head/Face: Normocephalic, atraumatic. cp 23:59 Eyes: Periorbital structures: appear normal, Pupils: equal, round, and reactive to light and accomodation, Extraocular movements: intact throughout, Conjunctiva: normal, no exudate, no injection, Sclera: no appreciated abnormality, Lids and lashes: appear normal, bilaterally. 23:59 ENT: External ear(s): are unremarkable, Nose: is normal, Mouth: Lips: moist, Oral mucosa: pink and intact, moist, Posterior pharynx: is normal, airway is patent, no erythema, no exudate. 23:59 Neck: ROM/movement: is normal, is supple, without pain, no range of motions limitations. 23:59 Chest/axilla: Inspection: normal, Palpation: is normal, no crepitus, no tenderness. 23:59 Cardiovascular: Rate: normal, Rhythm: regular, Edema: ankle edema, that is very mild, JVD: is not appreciated. 23:59 Respiratory: the patient does not display signs of respiratory distress, Respirations: normal, no use of accessory muscles, no retractions, labored breathing, is not present, Breath sounds: are clear throughout, no decreased breath sounds, rhonchi, no stridor, no wheezing. 23:59 Abdomen/GI: Inspection: abdomen appears normal, Palpation: abdomen is soft and non-tender, in all quadrants. 23:59 Back: pain, is absent, ROM is normal. 23:59 Neuro: Orientation: to person, place \T\ time. Mentation: is normal, Cerebellar function: is grossly normal, Motor: moves all fours, strength is normal, Sensation: is normal, Gait: is steady. Vital Signs: 23:47 BP 104 / 70; Pulse 80; Resp 12; Temp 98.3; Pulse Ox 100% ; Weight 113.4 kg; Height 5 vc1 ft. 1 in. ; Pain 0/10; 09/05 00:28 BP 116 / 59 Supine; Pulse 71; bp 00:30 BP 115 / 81 Sitting; Pulse 71; Resp 21; Pulse Ox 100% ; bp 02:11 BP 118 / 72; Pulse 65; Resp 16; Pulse Ox 96% ; bp 01/20 23:47 Body Mass Index 47.24 (113.40 kg, 154.94 cm) vc1 01/20 23:47 Pain Scale: Adult vc1 MDM: 01/20 23:38 Patient medically screened. 01/21 02:15 Data reviewed: vital signs, nurses notes, lab test result(s), EKG, radiologic studies, cp CT scan, plain films. 02:15 Differential diagnosis: cardiac arrhythmia, CVA, GI bleed, hypovolemia, idiopathic cp dizziness, TIA. Consideration of Admission/Observation Escalation of care including admission/observation considered. I considered the following discharge prescriptions or medication management in the emergency department Medications were administered in the Emergency Department. See MAR. Care significantly affected by the following chronic conditions: Diabetes, Hypertension, Congestive Heart Failure, Chronic Obstructive Pulmonary Disease, Obesity. Counseling: I had a detailed discussion with the patient and/or guardian regarding the historical points, exam findings, and any diagnostic results supporting the discharge/admit diagnosis, lab results, radiology results, to return to the emergency department if symptoms worsen or persist or if there are any questions or concerns that arise at home. Response to treatment: the patient's symptoms have markedly improved after treatment, and as a result, I will discharge patient. 01/20 23:50 Order name: Basic Metabolic Panel; Complete Time: 02:03 01/21 02:03 Interpretation: Normal except: K 3.2; GLUC 117; BUN 19; CA 8.4. 01/20 23:50 Order name: CBC with Diff; Complete Time: 02:03 01/21 02:03 Interpretation: Reviewed. 01/20 23:50 Order name: Magnesium; Complete Time: 02:03 01/20 23:50 Order name: NT PRO-BNP; Complete Time: 02:03 01/21 02:03 Interpretation: Abnormal: NT PRO-BNP 1021. 01/20 23:50 Order name: PT-INR; Complete Time: 02:03 01/20 23:50 Order name: Troponin HS; Complete Time: 02:03 01/20 23:50 Order name: XRAY Chest (1 view) 01/20 23:50 Order name: CT Head Brain wo Cont 01/20 23:50 Order name: EKG; Complete Time: 23:51 cp 01/20 23:50 Order name: Cardiac monitoring; Complete Time: 23:58 cp 01/20 23:50 Order name: EKG - Nurse/Tech; Complete Time: 23:58 cp 01/20 23:50 Order name: IV Saline Lock; Complete Time: 23:58 cp 01/20 23:50 Order name: Labs collected and sent; Complete Time: 23:58 cp 01/20 23:50 Order name: O2 Per Protocol; Complete Time: 23:58 cp 01/20 23:50 Order name: O2 Sat Monitoring; Complete Time: 23:58 cp 01/20 23:50 Order name: Orthostatics; Complete Time: 00:34 cp EC/04 23:42 Rate is 79 beats/min. Rhythm is regular. GA interval is normal. QRS interval is cp prolonged at 132 msec. QT interval is normal. T waves are Inverted in leads I, aVL. Interpreted by me. Reviewed by me. Administered Medications: 01/21 00:33 Drug: Meclizine PO 25 mg Route: PO; bp 02:16 Follow up: Response: No adverse reaction bp 00:33 Drug: Ondansetron IVP 4 mg Route: IVP; Site: right antecubital; bp 02:16 Follow up: Response: No adverse reaction bp 02:16 Drug: Potassium PO Effervescent Tablet 50 mEq Route: PO; bp 02:16 Follow up: Response: No adverse reaction bp Disposition Summary: 01/21/23 02:17 Discharge Ordered Location: Home cp Problem: new cp Symptoms: have improved cp Condition: Stable cp Diagnosis - Dizziness and giddiness cp - Hypokalemia cp - Shortness of breath cp Followup: cp - With: Private Physician - When: 2 - 3 days - Reason: Recheck today's complaints Discharge Instructions: - Discharge Summary Sheet cp - Potassium Content of Foods cp - Dizziness cp - Shortness of Breath, Adult cp - Aspirin and Your Heart cp - Hypokalemia cp Forms: - Medication Reconciliation Form cp - Thank You Letter cp - Antibiotic Education cp - Prescription Opioid Use cp - Patient Portal Instructions cp - Leadership Thank You Letter cp - Family Work Release rv1 Prescriptions: - Meclizine 25 mg Oral Tablet - take 1 tablet by ORAL route every 8 hours As needed; 30 tablet; Refills: 0, cp Product Selection Permitted - Potassium Chloride 10 mEq Oral capsule, extended release - take 2 tablet by ORAL route every 12 hours for 3 days; 6 tablet; Refills: 0, cp Product Selection Permitted Signatures: Dispatcher [employer] Gus Wilson PA PA cp Peltier, Brian, RN RN bp Sandhya Gagnon RN RN vc1
[2023-01-21] MEDS ORDERED: POTASSIUM CL SA 10 MEQ TAB PO ONE (02:25)
[2023-01-21 02:39] VITALS: TEMP 98.3
[2023-01-21 02:42] VITALS: BP 118/72; O2SAT 96
--- NOTE | 2023-01-21 16:45 | EKG ---
Test Date: 2023-01-20 Test Time: 23:35:55 Battery Repairer: RV MEASUREMENT RESULTS: Intervals: Rate: 79 OH: 164 QRSD: 132 QT: 400 QTc: 458 [place]: P: 65 OH: 164 QRS: -37 T: 101 INTERPRETIVE STATEMENTS: Normal sinus rhythm Left axis deviation Left bundle branch block Abnormal ECG Compared to ECG 01/01/2022 09:34:15 Left-axis deviation now present Electronically Signed On 01-21-23 16:42:23 CDT by Lan Dawson
== END 2023-01-21 02:35 | disposition home or self-care (01) ==
LOC: ER 23:22
DX: R42 Dizziness and giddiness (principal); E87.6 Hypokalemia; R06.02 Shortness of breath; E11.9 Type 2 diabetes mellitus without complications; J44.9 Chronic obstructive pulmonary disease, unspecified; I50.9 Heart failure, unspecified; Z88.0 Allergy status to penicillin
CPT/HCPCS: 93005; 85025; 80048; 36415; 83735; 85610; 84484; 83880; 70450; 71045; 96374; 99284; J8597; J2405

== ENCOUNTER 2023-03-05 12:09 | Emergency (ER) | payer OTHER ==
--- OUTSIDE RECORDS SUMMARY | 2023-03-05 12:21 | XMS REPORT | Continuity of Care Document ---
:1960 Author Organization [facility] t Address [address] [place] [address] [place] [id number] Care Team Providers Name Role Phone JACQUI ROBLEDO Primary Care Physician Unavailable JACQUI ROBLEDO Attending Clinician Unavailable Jacqui Robledo Attending Clinician Unavailable Aissatou Tapia Attending Clinician Unavailable Aleah Nicholson Attending Clinician Unavailable VAUGHN MORRISON Attending Clinician Unavailable MIREYA ANGEL Attending Clinician Unavailable GIOVANY KNOTT Attending Clinician Unavailable SOPHIE PITTMAN Attending Clinician Unavailable Wood Roach MD Attending Clinician Mireya Ivory Attending Clinician FE RHODES Attending Clinician Unavailable Doctor Unassigned, Maria Stein Attending Clinician Unavailable Alyssa Dodd MD Attending Clinician [phone] ALYSSA DODD Attending Clinician Unavailable Sigifredo Ramirez MD Attending Clinician SIGIFREDO RAMIREZ Attending Clinician Unavailable SIGIFREDO RAMIREZ Attending Clinician Unavailable VIVEK IVEY Attending Clinician Unavailable Rosangela RN, Marychuy Fishman Attending Clinician Unavailable Lab, Ang - Db Attending Clinician Unavailable Andrews Perla MD Attending Clinician ANDREWS PERLA Attending Clinician Unavailable ANDREWS PERLA Attending Clinician Unavailable LATASHA LEAL Attending Clinician Unavailable Latasha Leal MD Attending Clinician , [facility] Sleep Lab Bed Attending Clinician Unavailable Feliberto, General Cardiology Attending Clinician Unavailable WOOD ROACH Attending Clinician Unavailable Testing, [facility] Pulmonary Function Attending Clinician UnavailMiguel Spencer MD Attending Clinician MIGUEL FORD Attending Clinician Unavailable RADIOLOGY Attending Clinician Unavailable Radiology Attending Clinician Unavailable Po, [facility] Lab Main Attending Clinician Unavailable Milo Bennett MD Attending Clinician Fe Rhodes MD Attending Clinician MANDI MOON Attending Clinician Unavailable Nurse, Alexander Donaldson Attending Clinician Unavailable Unknown, Attending Attending Clinician Unavailable UNKNOWN, ATTENDING Attending Clinician Unavailable Regulo Villa Attending Clinician Yue CAM, Joel K.H. Attending Clinician JOEL TURNER K.HRenuka Attending Clinician Unavailable Kennedy_Lucio Attending Clinician Unavailable JACQUI ROBLEDO Attending Clinician Unavailable WOOD ROACH Admitting Clinician Unavailable JOEL TURNER K.HRenuka Admitting Clinician Unavailable Fina Admitting Clinician Unavailable JACQUI ROBLEDO Admitting Clinician Unavailable Payers Payer Name Policy Type Policy Number Effective Date Expiration Date S jerome [facility]/UHC DUAL [id number] 2021 COMP HMO D SNP 00:00:00 [place] [id number] 2017 00:00:00 [facility] [id number] 2021 Common DUAL MCR WELLMED 00:00:00 [facility] MEDICARE NOVITAS MB [id number] [facility] MEDICARE NOVITAS MB [id number] [facility] MEDICARE NOVITAS MB [id number] [facility] MEDICARE NOVITAS MB [id number] [facility] MEDICARE NOVITAS MB [id number] [facility] [employer] - [id number] 2020 [facility] 00:00:00 (MEDICARE REPLACEMENT/ADVAN TAGE - H[place]) [place] [id number] [place] [facility] [id number] - DUAL COMPLETE - DUAL ELIGIBLE - SNP (MEDICARE-MEDICAI D REPLACEMENT HMO) Problems Condition Condition Condition Status Onset Resolution Last Treating Co mments Source Name Details Category Date Date Treatment Clinician Date Angina Angina Disease Active Univers pectoris pectoris 4-19 ity of 00:00: [place] 00 Medical Branch Diabetes Diabetes Disease Active Unive rs mellitus mellitus 4-19 ity of 00:00: [place] 00 Medical Branch Sick sinus Sick sinus Disease Active U nivers syndrome syndrome 4-19 ity of 00:00: [place] 00 Medical Branch Ventricula Ventricula Disease Active [...] 00 Medical Branch 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 0-31 it y of athderek athy 00:00: [place] 00 Medical Branch 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 7-24 it y of r r 00:00: [place] tachycardi tachycardi 00 Me dical a a Branch Cardiac Cardiac Problem Active 2021-07-26 Me moria defibrilla defibrilla 22:53:26 l tor in tor in [place] situ situ (finding) (finding) Active Problem 07/26/2021 [facility] 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 22:53:26 l s s [place] (disorder) (disorder) Active Problem 07/26/2021 [facility] Congestive Congestiv Problem Active 2021-07-26 [facility] heart e heart 22:53:26 l failure failure [place] (disorder) (disorder) Active Problem 07/26/2021 [facility] [...] on, Spirit on unspecifie - CHI d [facility] [id number] Unsteady Problem Commo n gait [facility] [id number] Obstructiv Problem Com mon e sleep Spirit apnea - [facility] (adult) (pediatric [facility] Hypertensi Hypertensi Problem C ommon on on Spirit [facility] Peripheral Peripheral Problem C ommon vascular vascular Spirit disease disease - [facility] Type II Diabetes Problem Common diabetes type 2, Spirit mellitus controlled - CH I well controlled [facility] Cardiomyop Cardiomyop Problem C ommon athy athy [facility] [id number] Constipati Problem Com mon on, Spirit [facility]specif[facility] [id number] AICD Problem Common (automatic Spirit cardiovert - CHI er/defibri St llator) [facility] [id number] Other Problem Common chronic [facility] pain [facility] [id number] Tremor of Problem Com mon both hands [facility] [id number] Polyarthra Problem Com mon lgia [facility] [id number] Chest Problem Common pain, [facility] unspecifie - CHI d type [facility] [id number] Chronic Problem Common congestive Spirit heart - CHI failure, unspecifie [facility] d heart Medical failure Center type [id number] Morbid Problem Common (severe) [facility] obesity - CHI due to [facility] calories [facility] [id number] Coronary Problem Com mon 107 artery [facility] disease - [facility] involving [facility] coronary Medical artery of [place] heart, angina presence unspecifie d [id number] Primary Problem Comm on osteoarthr Spirit itis of [facility] right knee [facility] [id number] Status Problem Common post fall [facility] [id number] Falls Problem Common frequently [facility] [id number] Shortness Problem Com mon of breath [facility] Depression Depression Problem C ommon [facility] [id number] Peripheral Problem Co mmon edema [facility] [id number] Asthma, Problem Commo n unspecifie Spirit d asthma - CHI severity, St unspecifie [facility] d whether Medical complicate Center d, unspecifie d whether persistent [id number] Non-pressu Problem Com mon re chronic Spirit ulcer of - CHI unspecifie St d part of [facility] left lower Medica l leg with Center unspecifie d severity [id number] Varicose Problem Comm on veins of Spirit left lower - CHI extremity St with ulcer [facility] of Medical unspecifie Center d site Allergies, Adverse Reactions, Alerts Allergy Allergy Status Severity Reaction(s) Onset Inactive Treating Comm ents Source Name Type Date Date Clinician [place] DA Active U Unknown 2022-05 SJm ins 0-05 00:00: 00 PENICILL DRUG Active Unknown-Cmnt Un winter IN [place]GR[place] 5-15 ity of 00:00: [address] Branch Penicill Propensi Active Unknown - Uni [...] Unknown Commo n in in Spirit - [facility] penicill penicill Active Memori a in in l [place] PENICILL Allergy Active [place] [facility] Social History Social Habit Start Date Stop Date Quantity Comments Source Exposure to 2022-10-06 2022-10-16 Not sure [facility] SARS-CoV-2 00:00:00 11:16:00 [facility] (event) [place] Alcohol intake 2022-10-10 2022-10-10 [facility] University of 00:00:00 00:00:00 non-drinker [facility] (finding) [place] Tobacco use and 2022-04-10 2022-04-10 Smokeless tobacco Un iversity of exposure 00:00:00 00:00:00 non-user [facility] Social History 2021-02-21 2021-02-21 [facility] otf 19:06:01 19:06:01 History of 2014-05-19 Cigar Smoker University o f tobacco use 00:00:00 [facility] Sex Ass[birth year] [facility] 00:00:00 00:00:00 [facility] Center Smoking Status Start Date Stop Date Source Ex-smoker 2022-04-10 00:00:00 2022-04-10 00:00:00 Universi ty of [facility] Medications Ordered Filled Start Stop Current Ordering Indication Dosage Frequency Signature Comments Components Source Medication Medication Date Date Medication? Clinician (SIG) Name Name JARDIANCE Yes [id number] Take 1 U nivers 10 mg 6-27 [...] mg/0.5 5-12 ity of mL PnIj 00:00: 00 Medical Branch MOUNJARO 3-0 Yes Univers 2.5 mg/0.5 5-12 ity of mL PnIj 00:00: Medical Branch MOUNJARO 3-0 Yes Univers 2.5 mg/0.5 5-12 ity of mL PnIj 00:00: Medical Branch MOUNJARO 3-0 Yes Univers 2.5 mg/0.5 5-12 ity of mL PnIj 00:00: Medical Branch MOUNJARO 2023-0 Yes Univers 2.5 mg/0.5 5-12 ity of mL PnIj 00:00: [place] [facility] MOUNJARO 3-0 Yes Univers 2.5 mg/0.5 5-12 ity of mL PnIj 00:00: [place] [facility] MOUNJARO 3-0 Yes Univers 2.5 mg/0.5 5-12 ity of mL PnIj 00:00: [place] [facility] JARDIANCE 2023-0 Yes [id number] Take 1 U nivers 10 mg 4-03 tablet by ity of 00:00: mouth once [place] daily Medical Branch JARDIANCE 3-0 Yes [id number] Take 1 U nivers 10 mg 4-03 tablet by ity of 00:00: mouth once [place] daily Medical Branch JARDIANCE 3-0 Yes [id number] Take 1 U nivers 10 mg 4-03 tablet by ity of 00:00: mouth once [place] daily Medical Branch JARDIANCE 3-0 Yes [id number] Take 1 U nivers 10 mg 4-03 tablet by ity of 00:00: mouth once [place] daily Medical Branch JARDIANCE 3-0 Yes [id number] Take 1 U nivers 10 mg 4-03 tablet by ity of 00:00: mouth once [place] daily Medical Branch JARDIANCE 3-0 Yes [id number] Take 1 U nivers 10 mg 4-03 tablet by ity of 00:00: mouth once [place] daily Medical Branch JARDIANCE 2023-0 Yes [id number] Take 1 U nivers 10 mg 4-03 tablet by ity of 00:00: mouth once [place] daily Medical Branch JARDIANCE 2023-0 Yes [id number] Take 1 U nivers 10 mg 4-03 tablet by ity of 00:00: mouth once [place] daily Medical Branch JARDIANCE 2023-0 Yes [id number] Take 1 U nivers 10 mg 4-03 tablet by ity of 00:00: mouth once [place] daily Medical Branch JARDIANCE 2023-0 Yes [id number] Take 1 U nivers 10 mg 4-03 tablet by ity of 00:00: mouth once [place] daily Medical Branch JARDIANCE 2023-0 Yes [id number] Take 1 U nivers 10 mg 4-03 tablet by ity of 00:00: mouth once [place] daily Medical Branch JARDIANCE 3-0 Yes [id number] Take 1 U nivers 10 mg 4-03 tablet by ity of 00:00: mouth once daily Medical Branch JARDIANCE 3-0 Yes [id number] Take 1 U nivers 10 mg 4-03 tablet by ity of 00:00: mouth once daily Medical Branch JARDIANCE 3-0 Yes [id number] Take 1 U nivers 10 mg 4-03 tablet by ity of 00:00: mouth once daily Medical Branch JARDIANCE 2022-0 Yes [id number] Take 1 U nivers 10 mg 4-03 tablet by ity of 00:00: mouth once [place] daily Medical Branch JARDIANCE 2022-0 Yes [id number] Take 1 U nivers 10 mg 4-03 tablet by ity of 00:00: mouth once [place] daily Medical Branch JARDIANCE 3-0 Yes [id number] Take 1 U nivers 10 mg 4-03 tablet by ity of 00:00: mouth once [place] daily Medical Branch JARDIANCE 3-0 Yes [id number] Take 1 U nivers 10 mg 4-03 tablet by ity of 00:00: mouth once [place] daily Medical Branch JARDIANCE 3-0 Yes [id number] Take 1 U nivers 10 mg 4-03 tablet by ity of 00:00: mouth once [place] daily Medical Branch JARDIANCE 3-0 Yes [id number] Take 1 U nivers 10 mg 4-03 tablet by ity of 00:00: mouth once [place] daily Medical Branch JARDIANCE 3-0 Yes [id number] Take 1 U nivers 10 mg 4-03 tablet by ity of 00:00: mouth once [place] daily Medical Branch JARDIANCE 3-0 Yes [id number] Take 1 U nivers 10 mg 4-03 tablet by ity of 00:00: mouth once [place] daily Medical Branch JARDIANCE 3-0 Yes [id number] Take 1 U nivers 10 mg 4-03 tablet by ity of 00:00: mouth once [place] daily Medical Branch JARDIANCE 3-0 Yes [id number] Take 1 U nivers 10 mg 4-03 tablet by ity of 00:00: mouth once [place] 00 daily Medical Branch JARDIANCE 3-0 3- No [id number] Take 1 Univers 10 mg 4-03 -27 tablet by ity of 00:00: 00:00 mouth once [place] 00 :00 daily Medical Branch spironolact 2023-0 Yes [id number] 12.5mg Take 0.5 Univers one 25 mg 3-29 tablets by ity of tablet 00:00: mouth in [place] the Medical morning. Branch spironolact 2023-0 Yes [id number] 12.5mg Take 0.5 Univers one 25 mg 3-29 tablets by ity of tablet 00:00: mouth in [place] the Medical morning. Branch spironolact 3-0 Yes [id number] 12.5mg Take 0.5 Univers one 25 mg 3-29 tablets by ity of tablet 00:00: mouth in [place] the Medical morning. Branch spironolact 3-0 Yes [id number] 12.5mg Take 0.5 Univers one 25 mg 3-29 tablets by ity of tablet 00:00: mouth in [place] the Medical morning. Branch spironolact 3-0 Yes [id number] 12.5mg Take 0.5 Univers one 25 mg 3-29 tablets by ity of tablet 00:00: mouth in [place] the Medical morning. Branch spironolact 3-0 Yes [id number] 12.5mg Take 0.5 Univers one 25 mg 3-29 tablets by ity of tablet 00:00: mouth in [place] the Medical morning. Branch spironolact 2023-0 Yes [id number] 12.5mg Take 0.5 Univers one 25 mg 3-29 tablets by ity of tablet 00:00: mouth in [place] the Medical morning. Branch spironolact 2023-0 Yes [id number] 12.5mg Take 0.5 Univers one 25 mg 3-29 tablets by ity of tablet 00:00: mouth in [place] the Medical morning. Branch spironolact 2023-0 Yes [id number] 12.5mg Take 0.5 Univers one 25 mg 3-29 tablets by ity of tablet 00:00: mouth in [place] the Medical morning. Branch spironolact 2023-0 Yes [id number] 12.5mg Take 0.5 Univers one 25 mg 3-29 tablets by ity of tablet 00:00: mouth in [place] the Medical morning. Branch spironolact 2023-0 Yes [id number] 12.5mg Take 0.5 Univers one 25 mg 3-29 tablets by ity of tablet 00:00: mouth in [place] the Medical morning. Branch spironolact 2023-0 Yes [id number] 12.5mg Take 0.5 Univers one 25 mg 3-29 tablets by ity of tablet 00:00: mouth in [place] the Medical morning. Branch spironolact 2023-0 Yes [id number] 12.5mg Take 0.5 Univers one 25 mg 3-29 tablets by ity of tablet 00:00: mouth in [place] the Medical morning. Branch spironolact 2023-0 Yes [id number] 12.5mg Take 0.5 Univers one 25 mg 3-29 tablets by ity of tablet 00:00: mouth in [place] the Medical morning. Branch spironolact 2023-0 Yes [id number] 12.5mg Take 0.5 Univers one 25 mg 3-29 tablets by ity of tablet 00:00: mouth in [place] the Medical morning. Branch spironolact 2023-0 Yes [id number] 12.5mg Take 0.5 Univers one 25 mg 3-29 tablets by ity of tablet 00:00: mouth in [place] the Medical morning. Branch spironolact 2023-0 Yes [id number] 12.5mg Take 0.5 Univers one 25 mg 3-29 tablets by ity of tablet 00:00: mouth in [place] the Medical morning. Branch spironolact 2023-0 Yes [id number] 12.5mg Take 0.5 Univers one 25 mg 3-29 tablets by ity of tablet 00:00: mouth in [place] the Medical morning. Branch spironolact 2023-0 Yes [id number] 12.5mg Take 0.5 Univers one 25 mg 3-29 tablets by ity of tablet 00:00: mouth in [place] the Medical morning. Branch spironolact 2023-0 Yes [id number] 12.5mg Take 0.5 Univers one 25 mg 3-29 tablets by ity of tablet 00:00: mouth in [place] 00 the Medical morning. Branch spironolact 2023-0 Yes [id number] 12.5mg Take 0.5 Univers one 25 mg 3-29 tablets by ity of tablet 00:00: mouth in [place] the Medical morning. Branch spironolact 2023-0 Yes [id number] 12.5mg Take 0.5 Univers one 25 mg 3-29 tablets by ity of tablet 00:00: mouth in [place] the Medical morning. Branch spironolact 2023-0 Yes [id number] 12.5mg Take 0.5 Univers one 25 mg 3-29 tablets by ity of tablet 00:00: mouth in [place] the Medical morning. Branch spironolact 2023-0 Yes [id number] 12.5mg Take 0.5 Univers one 25 mg 3-29 tablets by ity of tablet 00:00: mouth in [place] the Medical morning. Branch spironolact 2023-0 Yes [id number] 12.5mg Take 0.5 Univers one 25 mg 3-29 tablets by ity of tablet 00:00: mouth in [place] the Medical morning. Branch spironolact 2023-0 Yes [id number] 12.5mg Take 0.5 Univers one 25 mg 3-29 tablets by ity of tablet 00:00: mouth in [place] the Medical morning. Branch spironolact 2023-0 Yes [id number] 12.5mg Take 0.5 Univers one 25 mg 3-29 tablets by ity of tablet 00:00: mouth in [place] the Medical morning. Branch spironolact 2023-0 Yes [id number] 12.5mg Take 0.5 Univers one 25 mg 3-29 tablets by ity of tablet 00:00: mouth in [place] the Medical morning. Branch spironolact 2023-0 Yes [id number] 12.5mg Take 0.5 Univers one 25 mg 3-29 tablets by ity of tablet 00:00: mouth in [place] the Medical morning. Branch metformin 2022-0 Yes [...] by mouth ity of 13:01: daily with [place] [address] breakfast. Medical Branch metformin 2022-0 Yes 500mg [...] by mouth ity of 13:01: daily with [place] [address] breakfast. Medical Branch metformin 2022-0 Yes 500mg [...] by mouth ity of 13:01: daily with [place] [address] breakfast. Medical Branch metformin 2022-0 Yes 500mg [...] by mouth ity of 13:01: daily with [place] [address] breakfast. Medical Branch metformin 3-0 Yes 500mg [...] by mouth ity of 13:01: daily with [place] [address] breakfast. Medical Branch metformin 2022-0 Yes 500mg [...] by mouth ity of 13:01: daily with [place] [address] breakfast. Medical Branch metformin 2022-0 Yes 500mg [...] by mouth ity of 13:01: daily with [place] [address] breakfast. Medical Branch metformin 2022-0 Yes 500mg [...] by mouth ity of 13:01: daily with [place] [address] breakfast. Medical Branch metformin 2022-0 Yes 500mg [...] by mouth ity of 13:01: daily with [place] [address] breakfast. Medical Branch metformin 3-0 Yes 500mg [...] by mouth ity of 13:01: daily with [place] [address] breakfast. Medical Branch metformin 2023-0 Yes 500mg Take 500 Uni vers HCl 2-20 mg by ity of (METFORMIN 13:01: mouth 2 [place] 33 (two) Medical times Branch daily with meals. glimepiride 2023-0 Yes 2mg Take 2 mg U nivers 2 mg tablet 2-20 by mouth ity of 13:01: daily with [place] [address] breakfast. Medical Branch metformin 2023-0 Yes 500mg Take 500 Uni vers HCl 2-20 mg by ity of (METFORMIN 13:01: mouth 2 [place] 33 (two) Medical times Branch daily with meals. glimepiride 2023-0 Yes 2mg Take 2 mg U nivers 2 mg tablet 2-20 by mouth ity of 13:01: daily with [place] [address] breakfast. Medical Branch metformin 2023-0 Yes 500mg Take 500 Uni vers HCl 2-20 mg by ity of (METFORMIN 13:01: mouth 2 [place] 33 (two) Medical times Branch daily with meals. glimepiride 2023-0 Yes 2mg Take 2 mg U nivers 2 mg tablet 2-20 by mouth ity of 13:01: daily with [place] 33 breakfast. Medical Branch metformin 2023-0 Yes [...] by mouth ity of 13:01: daily with [place] [address] breakfast. Medical Branch metformin 3-0 Yes 500mg [...] by mouth ity of 13:01: daily with [place] [address] breakfast. Medical Branch metformin 3-0 Yes 500mg [...] by mouth ity of 13:01: daily with [place] [address] breakfast. Medical Branch metformin 2023-0 Yes 500mg [...] by mouth ity of 13:01: daily with [place] [address] breakfast. Medical Branch metformin 3-0 Yes 500mg [...] by mouth ity of 13:01: daily with [place] [address] breakfast. Medical Branch metformin 2022-0 Yes 500mg [...] by mouth ity of 13:01: daily with [place] [address] breakfast. Medical Branch metformin 2022-0 Yes 500mg [...] by mouth ity of 13:01: daily with [place] [address] breakfast. Medical Branch metformin 3-0 Yes 500mg [...] by mouth ity of 13:01: daily with [place] [address] breakfast. Medical Branch metformin 3-0 Yes 500mg [...] by mouth ity of 13:01: daily with [place] [address] breakfast. Medical Branch metformin 2022-0 Yes 500mg [...] by mouth ity of 13:01: daily with [place] [address] breakfast. Medical Branch metformin 3-0 Yes 500mg [...] by mouth ity of 13:01: daily with [place] [address] breakfast. Medical Branch metformin 2023-0 Yes 500mg [...] by mouth ity of 13:01: daily with [place] [address] breakfast. Medical Branch metformin 3-0 Yes 500mg [...] by mouth ity of 13:01: daily with [place] [address] breakfast. Medical Branch metformin 3-0 Yes 500mg [...] by mouth ity of 13:01: daily with [place] [address] breakfast. Medical Branch metformin 3-0 Yes 500mg [...] by mouth ity of 13:01: daily with [place] [address] breakfast. Medical Branch metformin 2022-0 Yes 500mg [...] by mouth ity of 13:01: daily with [place] [address] breakfast. Medical Branch bumetanide 3-0 Yes 1mg TAKE 1 Unive rs 1 mg tablet 1-12 TABLET BY ity of 00:00: MOUTH IN [place] 00 THE Medical MORNING Branch AND 1 TABLET IN THE EVENING bumetanide 3-0 Yes 1mg TAKE 1 Unive rs 1 mg tablet 1-12 TABLET BY ity of 00:00: MOUTH IN [place] 00 THE Medical MORNING Branch AND 1 TABLET IN THE EVENING bumetanide 3-0 Yes 1mg TAKE 1 Unive rs 1 mg tablet 1-12 TABLET BY ity of 00:00: MOUTH IN [place] 00 THE Medical MORNING Branch AND 1 TABLET IN THE EVENING bumetanide 3-0 Yes 1mg TAKE 1 Unive rs 1 mg tablet 1-12 TABLET BY ity of 00:00: MOUTH IN [place] 00 THE Medical MORNING Branch AND 1 TABLET IN THE EVENING bumetanide 3-0 Yes 1mg TAKE 1 Unive rs 1 mg tablet 1-12 TABLET BY ity of 00:00: MOUTH IN [place] 00 THE Medical MORNING Branch AND 1 TABLET IN THE EVENING bumetanide 3-0 Yes 1mg TAKE 1 Unive rs 1 mg tablet 1-12 TABLET BY ity of 00:00: MOUTH IN [place] 00 THE Medical MORNING Branch AND 1 TABLET IN THE EVENING bumetanide 3-0 Yes 1mg TAKE 1 Unive rs 1 mg tablet 1-12 TABLET BY ity of 00:00: MOUTH IN [place] 00 THE Medical MORNING Branch AND 1 TABLET IN THE EVENING bumetanide 3-0 Yes 1mg TAKE 1 Unive rs 1 mg tablet 1-12 TABLET BY ity of 00:00: MOUTH IN [place] 00 THE Medical MORNING Branch AND 1 TABLET IN THE EVENING bumetanide 3-0 Yes 1mg TAKE 1 Unive rs 1 mg tablet 1-12 TABLET BY ity of 00:00: MOUTH IN [place] 00 THE Medical MORNING Branch AND 1 TABLET IN THE EVENING bumetanide 3-0 Yes 1mg TAKE 1 Unive rs 1 mg tablet 1-12 TABLET BY ity of 00:00: MOUTH IN [place] 00 THE Medical MORNING Branch AND 1 TABLET IN THE EVENING bumetanide 3-0 Yes 1mg TAKE 1 Unive rs 1 mg tablet 1-12 TABLET BY ity of 00:00: MOUTH IN [place] 00 THE Medical MORNING Branch AND 1 TABLET IN THE EVENING bumetanide 3-0 Yes 1mg TAKE 1 Unive rs 1 mg tablet 1-12 TABLET BY ity of 00:00: MOUTH IN [place] 00 THE Medical MORNING Branch AND 1 TABLET IN THE EVENING bumetanide 3-0 Yes 1mg TAKE 1 Unive rs 1 mg tablet 1-12 TABLET BY ity of 00:00: MOUTH IN [place] THE Medical MORNING Branch AND 1 TABLET IN THE EVENING bumetanide 3-0 Yes 1mg TAKE 1 Unive rs 1 mg tablet 1-12 TABLET BY ity of 00:00: MOUTH IN [place] 00 THE Medical MORNING Branch AND 1 TABLET IN THE EVENING bumetanide 3-0 Yes 1mg TAKE 1 Unive rs 1 mg tablet 1-12 TABLET BY ity of 00:00: MOUTH IN [place] 00 THE Medical MORNING Branch AND 1 TABLET IN THE EVENING bumetanide 3-0 Yes 1mg TAKE 1 Unive rs 1 mg tablet 1-12 TABLET BY ity of 00:00: MOUTH IN [place] 00 THE Medical MORNING Branch AND 1 TABLET IN THE EVENING bumetanide 3-0 Yes 1mg TAKE 1 Unive rs 1 mg tablet 1-12 TABLET BY ity of 00:00: MOUTH IN [place] 00 THE Medical MORNING Branch AND 1 TABLET IN THE EVENING bumetanide 2023-0 Yes 1mg TAKE 1 Unive rs 1 mg tablet 1-12 TABLET BY ity of 00:00: MOUTH IN [place] 00 THE Medical MORNING Branch AND 1 TABLET IN THE EVENING bumetanide 3-0 Yes 1mg TAKE 1 Unive rs 1 mg tablet 1-12 TABLET BY ity of 00:00: MOUTH IN [place] 00 THE Medical MORNING Branch AND 1 TABLET IN THE EVENING bumetanide 3-0 Yes 1mg TAKE 1 Unive rs 1 mg tablet 1-12 TABLET BY ity of 00:00: MOUTH IN [place] 00 THE Medical MORNING Branch AND 1 TABLET IN THE EVENING bumetanide 3-0 Yes 1mg TAKE 1 [facility] 1 mg tablet 1-12 TABLET BY [facility] 00:00: MOUTH IN [place] 00 THE Medical MORNING Branch AND 1 TABLET IN THE EVENING bumetanide 3-0 Yes 1mg TAKE 1 [facility] 1 mg tablet 1-12 TABLET BY [facility] of 00:00: MOUTH IN [place] 00 THE Medical MORNING Branch AND 1 TABLET IN THE EVENING bumetanide 3-0 Yes 1mg TAKE 1 [facility] 1 mg tablet 1-12 TABLET BY [facility] 00:00: MOUTH IN [place] 00 THE Medical MORNING Branch AND 1 TABLET IN THE EVENING bumetanide 3-0 Yes 1mg TAKE 1 [facility] 1 mg tablet 1-12 TABLET BY [facility] of 00:00: MOUTH IN [place] 00 THE Medical MORNING Branch AND 1 TABLET IN THE EVENING bumetanide 3-0 Yes 1mg TAKE 1 [facility] 1 mg tablet 1-12 TABLET BY [facility] 00:00: MOUTH IN [place] 00 THE Medical MORNING Branch AND 1 TABLET IN THE EVENING bumetanide 3-0 Yes 1mg TAKE 1 [facility] 1 mg tablet 1-12 TABLET BY [facility] 00:00: MOUTH IN [place] 00 THE Medical MORNING Branch AND 1 TABLET IN THE EVENING bumetanide 3-0 Yes 1mg TAKE 1 [facility] 1 mg tablet 1-12 TABLET BY [facility] of 00:00: MOUTH IN [place] 00 THE Medical MORNING Branch AND 1 TABLET IN THE EVENING bumetanide 3-0 Yes 1mg TAKE 1 [facility] 1 mg tablet 1-12 TABLET BY [facility] 00:00: MOUTH IN [place] 00 THE Medical MORNING Branch AND 1 TABLET IN THE EVENING bumetanide 2023-0 Yes 1mg TAKE 1 [facility] 1 mg tablet 1-12 TABLET BY [facility] 00:00: MOUTH IN [place] 00 THE Medical MORNING Branch AND 1 TABLET IN THE EVENING bumetanide 0 Yes 1mg TAKE 1 [facility] 1 mg tablet 1-12 TABLET BY [facility] of 00:00: MOUTH IN [place] 00 THE Medical MORNING Branch AND 1 TABLET IN THE EVENING bumetanide 0 Yes 1mg TAKE 1 [facility] 1 mg tablet 1-12 TABLET BY [facility] 00:00: MOUTH IN [place] 00 THE Medical MORNING Branch AND 1 TABLET IN THE EVENING bumetanide 2022-0 Yes 1mg TAKE 1 [facility] 1 mg tablet 1-12 TABLET BY [facility] 00:00: MOUTH IN [place] 00 THE Medical MORNING Branch AND 1 TABLET IN THE EVENING bumetanide 0 Yes 1mg TAKE 1 [facility] 1 mg tablet 1-12 TABLET BY [facility] 00:00: MOUTH IN [place] THE Medical MORNING Branch AND 1 TABLET IN THE EVENING bumetanide 0 Yes 1mg TAKE 1 [facility] 1 mg tablet 1-12 TABLET BY [facility] 00:00: MOUTH IN [place] THE Medical MORNING Branch AND 1 TABLET IN THE EVENING bumetanide 0 Yes 1mg TAKE 1 [facility] 1 mg tablet 1-12 TABLET BY [facility] 00:00: MOUTH IN [place] 00 THE Medical MORNING Branch AND 1 TABLET IN THE EVENING bumetanide 0 Yes 1mg TAKE 1 [facility] 1 mg tablet 1-12 TABLET BY [facility] 00:00: MOUTH IN [place] THE Medical MORNING Branch AND 1 TABLET IN THE EVENING bumetanide 0 Yes 1mg TAKE 1 [facility] 1 mg tablet 1-12 TABLET BY [facility] 00:00: MOUTH IN [place] THE Medical MORNING Branch AND 1 TABLET IN THE EVENING bumetanide 0 Yes 1mg TAKE 1 [facility] 1 mg tablet 1-12 TABLET BY [facility] 00:00: MOUTH IN [place] 00 THE Medical MORNING Branch AND 1 TABLET IN THE EVENING bumetanide 0 Yes 1mg TAKE 1 [facility] 1 mg tablet 1-12 TABLET BY [facility] 00:00: MOUTH IN [place] 00 THE Medical MORNING Branch AND 1 [...] by [facility] of tablet 00:00: mouth in [place] 00 the Medical morning. Branch carvediloL 2021-05 Yes 6.25mg Take 1 [facility] 6.25 mg 0-11 tablet by [facility] of tablet 00:00: mouth in [place] 00 the Medical morning Branch and 1 tablet in the evening. Take with meals. meclizine 2021-05 Yes 25mg Take 1 [facility] 25 mg 0-11 tablet by [facility] of tablet 00:00: mouth in [place] 00 the Medical morning Branch and 1 tablet at noon and 1 tablet in the evening. amiodarone 2021-05 Yes 200mg Take 1 [facility] 200 mg 0-11 tablet by [facility] of tablet 00:00: mouth in [place] the Medical morning. Branch aspirin 81 2021-05 Yes 81mg Take 1 [facility] mg EC 0-11 tablet by [facility] of tablet 00:00: mouth in [place] the Medical morning. Branch carvediloL 2021-05 Yes 6.25mg Take 1 [facility] vers 6.25 mg 0-11 tablet by [facility] of tablet 00:00: mouth in [place] the Medical morning Branch and 1 tablet in the evening. Take with meals. meclizine 2021-05 Yes 25mg Take 1 [facility] 25 mg 0-11 tablet by [facility] of tablet 00:00: mouth in [place] 00 the Medical morning Branch and 1 tablet at noon and 1 tablet in the evening. amiodarone 2021-05 Yes 200mg Take 1 [facility] 200 mg 0-11 tablet by [facility] of tablet 00:00: mouth in [place] the Medical morning. Branch aspirin 81 2021-05 Yes 81mg Take 1 [facility] mg EC 0-11 tablet by [facility] of tablet 00:00: mouth in [place] 00 the Medical morning. Branch carvediloL 2021-05 Yes 6.25mg Take 1 [facility] 6.25 mg 0-11 tablet by [facility] tablet 00:00: mouth in [place] the Medical morning Branch and 1 tablet in the evening. Take with meals. meclizine 2021-05 Yes 25mg Take 1 [facility] 25 mg 0-11 tablet by [facility] tablet 00:00: mouth in [place] the Medical morning Branch and 1 tablet at noon and 1 tablet in the evening. amiodarone 2021-05 Yes 200mg Take 1 [facility] 200 mg 0-11 tablet by [facility] of tablet 00:00: mouth in [place] the morning. Branch aspirin 81 2021-05 Yes 81mg Take 1 [facility] mg EC 0-11 tablet by [facility] of tablet 00:00: mouth in [place] the morning. Branch carvediloL 2021-05 Yes 6.25mg Take 1 [facility] 6.25 mg 0-11 tablet by [facility] tablet 00:00: mouth in [place] the Medical morning Branch and 1 tablet in the evening. Take with meals. meclizine 2021-05 Yes 25mg Take 1 [facility] 25 mg 0-11 tablet by [facility] of tablet 00:00: mouth in [place] the Medical morning Branch and 1 tablet at noon and 1 tablet in the evening. amiodarone 2021-05 Yes 200mg Take 1 [facility] 200 mg 0-11 tablet by [facility] of tablet 00:00: mouth in [place] the morning. Branch aspirin 81 2021-05 Yes 81mg Take 1 [facility] mg EC 0-11 tablet by [facility] of tablet 00:00: mouth in [place] the morning. Branch carvediloL 2021-05 Yes 6.25mg Take 1 [facility] 6.25 mg 0-11 tablet by [facility] tablet 00:00: mouth in [place] the Medical morning Branch and 1 tablet in the evening. Take with meals. meclizine 2021-05 Yes 25mg Take 1 [facility] 25 mg 0-11 tablet by [facility] of tablet 00:00: mouth in [place] the Medical morning Branch and 1 tablet at noon and 1 tablet in the evening. amiodarone 2021-05 Yes 200mg Take 1 [facility] 200 mg 0-11 tablet by [facility] of tablet 00:00: mouth in [place] the morning. Branch aspirin 81 2021-05 Yes 81mg Take 1 [facility] mg EC 0-11 tablet by [facility] of tablet 00:00: mouth in [place] the . Branch carvediloL 2021-05 Yes 6.25mg Take 1 [facility] 6.25 mg 0-11 tablet by [facility] of tablet 00:00: mouth in [place] the morning Branch and 1 tablet in the evening. Take with meals. meclizine 2021-05 Yes 25mg Take 1 [facility] 25 mg 0-11 tablet by [facility] of tablet 00:00: mouth in [place] the Medical morning Branch and 1 tablet at noon and 1 tablet in the evening. amiodarone 2021-05 Yes 200mg Take 1 [facility] 200 mg 0-11 tablet by [facility] of tablet 00:00: mouth in [place] the morning. Branch aspirin 81 2021-05 Yes 81mg Take 1 [facility] mg EC 0-11 tablet by [facility] of tablet 00:00: mouth in [place] the . Branch carvediloL 2021-05 Yes 6.25mg Take 1 [facility] 6.25 mg 0-11 tablet by [facility] tablet 00:00: mouth in [place] the morning Branch and 1 tablet in the evening. Take with meals. meclizine 2021-05 Yes 25mg Take 1 [facility] 25 mg 0-11 tablet by [facility] of tablet 00:00: mouth in [place] the morning Branch and 1 tablet at noon and 1 tablet in the evening. amiodarone 2021-05 Yes 200mg Take 1 [facility] 200 mg 0-11 tablet by [facility] of tablet 00:00: mouth in [place] the morning. Branch aspirin 81 2021-05 Yes 81mg Take 1 [facility] mg EC 0-11 tablet by [facility] of tablet 00:00: mouth in [place] the morning. Branch carvediloL 2021-05 Yes 6.25mg Take 1 [facility] 6.25 mg 0-11 tablet by [facility] of tablet 00:00: mouth in [place] the Medical morning Branch and 1 tablet in the evening. Take with meals. meclizine 2021-05 Yes 25mg Take 1 [facility] 25 mg 0-11 tablet by [facility] of tablet 00:00: mouth in [place] the Medical morning Branch and 1 tablet at noon and 1 tablet in the evening. amiodarone 2021-05 Yes 200mg Take 1 [facility] 200 mg 0-11 tablet by [facility] of tablet 00:00: mouth in [place] the . Branch aspirin 81 2021-05 Yes 81mg Take 1 [facility] mg EC 0-11 tablet by [facility] tablet 00:00: mouth in [place] the morning. Branch carvediloL 2021-05 Yes 6.25mg Take 1 [facility] 6.25 mg 0-11 tablet by [facility] tablet 00:00: mouth in [place] the morning Branch and 1 tablet in the evening. Take with meals. meclizine 2021-05 Yes 25mg Take 1 [facility] 25 mg 0-11 tablet by [facility] tablet 00:00: mouth in [place] the morning Branch and 1 tablet at noon and 1 tablet in the evening. amiodarone 2021-05 Yes 200mg Take 1 [facility] 200 mg 0-11 tablet by [facility] tablet 00:00: mouth in [place] the . Branch aspirin 81 2021-05 Yes 81mg Take 1 [facility] mg EC 0-11 tablet by [facility] tablet 00:00: mouth in [place] the . Branch carvediloL 2021-05 Yes 6.25mg Take 1 [facility] 6.25 mg 0-11 tablet by [facility] tablet 00:00: mouth in [place] the morning Branch and 1 tablet in the evening. Take with meals. meclizine 2021-05 Yes 25mg Take 1 [facility] 25 mg 0-11 tablet by [facility] tablet 00:00: mouth in [place] the morning Branch and 1 tablet at noon and 1 tablet in the evening. amiodarone 2021-05 Yes 200mg Take 1 [facility] 200 mg 0-11 tablet by [facility] tablet 00:00: mouth in [place] the morning. Branch aspirin 81 2021-05 Yes 81mg Take 1 [facility] mg EC 0-11 tablet by [facility] tablet 00:00: mouth in [place] the morning. Branch carvediloL 2021-05 Yes 6.25mg Take 1 [facility] 6.25 mg 0-11 tablet by [facility] tablet 00:00: mouth in [place] the morning Branch and 1 tablet in the evening. Take with meals. meclizine 2021-05 Yes 25mg Take 1 [facility] 25 mg 0-11 tablet by [facility] tablet 00:00: mouth in [place] the morning Branch and 1 tablet at noon and 1 tablet in the evening. amiodarone 2021-05 Yes 200mg Take 1 [facility] 200 mg 0-11 tablet by [facility] tablet 00:00: mouth in [place] the morning. Branch aspirin 81 2021-05 Yes 81mg Take 1 [facility] mg EC 0-11 tablet by [facility] tablet 00:00: mouth in [place] the morning. Branch carvediloL 2021-05 Yes 6.25mg Take 1 [facility] 6.25 mg 0-11 tablet by [facility] tablet 00:00: mouth in [place] the morning Branch and 1 tablet in the evening. Take with meals. meclizine 2021-05 Yes 25mg Take 1 [facility] 25 mg 0-11 tablet by [facility] tablet 00:00: mouth in [place] the morning Branch and 1 tablet at noon and 1 tablet in the evening. amiodarone 2021-05 Yes 200mg Take 1 [facility] 200 mg 0-11 tablet by [facility] tablet 00:00: mouth in [place] the morning. Branch aspirin 81 2021-05 Yes 81mg Take 1 [facility] mg EC 0-11 tablet by [facility] of tablet 00:00: mouth in [place] the morning. Branch carvediloL 2021-05 Yes 6.25mg Take 1 [facility] 6.25 mg 0-11 tablet by [facility] tablet 00:00: mouth in [place] the morning Branch and 1 tablet in the evening. Take with meals. meclizine 2021-05 Yes 25mg Take 1 [facility] 25 mg 0-11 tablet by [facility] of tablet 00:00: mouth in [place] the Medical morning Branch and 1 tablet at noon and 1 tablet in the evening. amiodarone 2021-05 Yes 200mg Take 1 [facility] 200 mg 0-11 tablet by [facility] of tablet 00:00: mouth in [place] the morning. Branch aspirin 81 2021-05 Yes 81mg Take 1 [facility] mg EC 0-11 tablet by [facility] of tablet 00:00: mouth in [place] the morning. Branch carvediloL 2021-05 Yes 6.25mg Take 1 [facility] 6.25 mg 0-11 tablet by [facility] tablet 00:00: mouth in [place] the Medical morning Branch and 1 tablet in the evening. Take with meals. meclizine 2021-05 Yes 25mg Take 1 [facility] 25 mg 0-11 tablet by [facility] of tablet 00:00: mouth in [place] the Medical morning Branch and 1 tablet at noon and 1 tablet in the evening. amiodarone 2021-05 Yes 200mg Take 1 [facility] 200 mg 0-11 tablet by [facility] of tablet 00:00: mouth in [place] the morning. Branch aspirin 81 2021-05 Yes 81mg Take 1 [facility] mg EC 0-11 tablet by [facility] of tablet 00:00: mouth in [place] the morning. Branch carvediloL 2021-05 Yes 6.25mg Take 1 [facility] 6.25 mg 0-11 tablet by [facility] of tablet 00:00: mouth in [place] the Medical morning Branch and 1 tablet in the evening. Take with meals. meclizine 2021-05 Yes 25mg Take 1 [facility] 25 mg 0-11 tablet by [facility] of tablet 00:00: mouth in [place] the Medical morning Branch and 1 tablet at noon and 1 tablet in the evening. amiodarone 2021-05 Yes 200mg Take 1 [facility] 200 mg 0-11 tablet by [facility] tablet 00:00: mouth in [place] the morning. Branch aspirin 81 2021-05 Yes 81mg Take 1 [facility] mg EC 0-11 tablet by [facility] of tablet 00:00: mouth in [place] the morning. Branch carvediloL 2021-05 Yes 6.25mg Take 1 [facility] 6.25 mg 0-11 tablet by [facility] tablet 00:00: mouth in [place] the Medical morning Branch and 1 tablet in the evening. Take with meals. meclizine 2021-05 Yes 25mg Take 1 [facility] 25 mg 0-11 tablet by [facility] tablet 00:00: mouth in [place] the Medical morning Branch and 1 tablet at noon and 1 tablet in the evening. amiodarone 2021-05 Yes 200mg Take 1 [facility] 200 mg 0-11 tablet by [facility] tablet 00:00: mouth in [place] the Medical morning. Branch aspirin 81 2021-05 Yes 81mg Take 1 [facility] mg EC 0-11 tablet by [facility] tablet 00:00: mouth in [place] the . Branch carvediloL 2021-05 Yes 6.25mg Take 1 [facility] 6.25 mg 0-11 tablet by [facility] tablet 00:00: mouth in [place] the Medical morning Branch and 1 tablet in the evening. Take with meals. meclizine 2021-05 Yes 25mg Take 1 [facility] 25 mg 0-11 tablet by [facility] of tablet 00:00: mouth in [place] the Medical morning Branch and 1 tablet at noon and 1 tablet in the evening. amiodarone 2021-05 Yes 200mg Take 1 [facility] 200 mg 0-11 tablet by [facility] of tablet 00:00: mouth in [place] the morning. Branch aspirin 81 2021-05 Yes 81mg Take 1 [facility] mg EC 0-11 tablet by [facility] of tablet 00:00: mouth in [place] the . Branch carvediloL 2021-05 Yes 6.25mg Take 1 [facility] 6.25 mg 0-11 tablet by [facility] tablet 00:00: mouth in [place] the Medical morning Branch and 1 tablet in the evening. Take with meals. meclizine 2021-05 Yes 25mg Take 1 [facility] 25 mg 0-11 tablet by [facility] tablet 00:00: mouth in [place] the Medical morning Branch and 1 tablet at noon and 1 tablet in the evening. amiodarone 2021-05 Yes 200mg Take 1 [facility] 200 mg 0-11 tablet by [facility] tablet 00:00: mouth in [place] the morning. Branch aspirin 81 2021-05 Yes 81mg Take 1 [facility] mg EC 0-11 tablet by [facility] tablet 00:00: mouth in [place] the morning. Branch carvediloL 2021-05 Yes 6.25mg Take 1 [facility] 6.25 mg 0-11 tablet by [facility] tablet 00:00: mouth in [place] the Medical morning Branch and 1 tablet in the evening. Take with meals. meclizine 2021-05 Yes 25mg Take 1 [facility] 25 mg 0-11 tablet by [facility] tablet 00:00: mouth in [place] the Medical morning Branch and 1 tablet at noon and 1 tablet in the evening. amiodarone 2021-05 Yes 200mg Take 1 [facility] 200 mg 0-11 tablet by [facility] tablet 00:00: mouth in [place] the morning. Branch aspirin 81 2021-05 Yes 81mg Take 1 [facility] mg EC 0-11 tablet by [facility] of tablet 00:00: mouth in [place] the morning. Branch carvediloL 2021-05 Yes 6.25mg Take 1 [facility] 6.25 mg 0-11 tablet by [facility] of tablet 00:00: mouth in [place] the Medical morning Branch and 1 tablet in the evening. Take with meals. meclizine 2021-05 Yes 25mg Take 1 [facility] 25 mg 0-11 tablet by [facility] tablet 00:00: mouth in [place] the morning Branch and 1 tablet at noon and 1 tablet in the evening. amiodarone 2021-05 Yes 200mg Take 1 [facility] 200 mg 0-11 tablet by [facility] of tablet 00:00: mouth in [place] the morning. Branch aspirin 81 2021-05 Yes 81mg Take 1 [facility] mg EC 0-11 tablet by [facility] of tablet 00:00: mouth in [place] the morning. Branch carvediloL 2021-05 Yes 6.25mg Take 1 [facility] 6.25 mg 0-11 tablet by [facility] of tablet 00:00: mouth in [place] the Medical morning Branch and 1 tablet in the evening. Take with meals. meclizine 2021-05 Yes 25mg Take 1 [facility] 25 mg 0-11 tablet by [facility] of tablet 00:00: mouth in [place] the morning Branch and 1 tablet at noon and 1 tablet in the evening. amiodarone 2021-05 Yes 200mg Take 1 [facility] 200 mg 0-11 tablet by [facility] of tablet 00:00: mouth in [place] the morning. Branch aspirin 2021-05 Yes 81mg Take 1 [facility] (NOEL LOW 0-11 tablet by [facility] of DOSE 00:00: mouth in [place] ASPIRIN) 00 the [facility] EC morning. Branch tablet carvediloL 2021-05 Yes 6.25mg Take 1 [facility] vers 6.25 mg 0-11 tablet by it[facility] of tablet 00:00: mouth in [place] [address] the Medical morning Branch and 1 tablet in the evening. Take with meals. meclizine 2021-05 Yes 25mg Take 1 [facility] 25 mg 0-11 tablet by it[facility] of tablet 00:00: mouth in [place] 00 the Medical morning Branch and 1 tablet at noon and 1 tablet in the evening. amiodarone 2021-05 Yes 200mg Take 1 [facility] 200 mg 0-11 tablet by [facility] of tablet 00:00: mouth in [place] 00 the Medical morning. Branch aspirin 2021-05 Yes 81mg Take 1 [facility] (NOEL LOW 0-11 tablet by it[facility] of DOSE 00:00: mouth in [place] ASPIRIN) 81 00 the Medical mg EC morning. Branch tablet carvediloL 2021-05 Yes 6.25mg Take 1 [facility] vers 6.25 mg 0-11 tablet by [facility] of tablet 00:00: mouth in [place] 00 the Medical morning Branch and 1 tablet in the evening. Take with meals. meclizine 2021-05 Yes 25mg Take 1 [facility] 25 mg 0-11 tablet by [facility] of tablet 00:00: mouth in [place] the Medical morning Branch and 1 tablet at noon and 1 tablet in the evening. amiodarone 2021-05 Yes 200mg Take 1 [facility] 200 mg 0-11 tablet by [facility] of tablet 00:00: mouth in [place] 00 the Medical morning. Branch aspirin 2021-05 Yes 81mg Take 1 [facility] (NOEL LOW 0-11 tablet by [facility] of DOSE 00:00: mouth in [place] ASPIRIN) 81 00 the Medical mg EC morning. Branch tablet carvediloL 2021-05 Yes 6.25mg Take 1 [facility] vers 6.25 mg 0-11 tablet by [facility] of tablet 00:00: mouth in [place] 00 the Medical morning Branch and 1 tablet in the evening. Take with meals. meclizine 2021-05 Yes 25mg Take 1 [facility] 25 mg 0-11 tablet by [facility] of tablet 00:00: mouth in [place] 00 the Medical morning Branch and 1 tablet at noon and 1 tablet in the evening. amiodarone 2021-05 Yes 200mg Take 1 [facility] 200 mg 0-11 tablet by [facility] of tablet 00:00: mouth in [place] 00 the Medical morning. Branch aspirin 2021-05 Yes 81mg Take 1 [facility] (NOEL LOW 0-11 tablet by [facility] of DOSE 00:00: mouth in [place] ASPIRIN) 81 00 the Medical mg EC morning. Branch tablet carvediloL 2021-05 Yes 6.25mg Take 1 [facility] vers 6.25 mg 0-11 tablet by [facility] of tablet 00:00: mouth in [place] 00 the Medical morning Branch and 1 tablet in the evening. Take with meals. meclizine 2021-05 Yes 25mg Take 1 [facility] 25 mg 0-11 tablet by [facility] of tablet 00:00: mouth in [place] 00 the Medical morning Branch and 1 tablet at noon and 1 tablet in the evening. amiodarone 2021-05 Yes 200mg Take 1 [facility] 200 mg 0-11 tablet by [facility] of tablet 00:00: mouth in [place] [address] the Medical morning. Branch aspirin 2021-05 Yes 81mg Take 1 [facility] (NOEL LOW 0-11 tablet by [facility] of DOSE 00:00: mouth in [place] ASPIRIN) 81 00 the Medical mg EC morning. Branch tablet carvediloL 2021-05 Yes 6.25mg Take 1 [facility] vers 6.25 mg 0-11 tablet by [facility] of tablet 00:00: mouth in [place] the Medical morning Branch and 1 tablet in the evening. Take with meals. meclizine 2021-05 Yes 25mg Take 1 [facility] 25 mg 0-11 tablet by [facility] of tablet 00:00: mouth in [place] the Medical morning Branch and 1 tablet at noon and 1 tablet in the evening. amiodarone 2021-05 Yes 200mg Take 1 [facility] 200 mg 0-11 tablet by [facility] of tablet 00:00: mouth in [place] [address] the Medical morning. Branch aspirin 2021-05 Yes 81mg Take 1 [facility] (NOEL LOW 0-11 tablet by [facility] of DOSE 00:00: mouth in [place] ASPIRIN) 81 00 the Medical mg EC morning. Branch tablet carvediloL 2021-05 Yes 6.25mg Take 1 [facility] vers 6.25 mg 0-11 tablet by [facility] of tablet 00:00: mouth in [place] the Medical morning Branch and 1 tablet in the evening. Take with meals. meclizine 2021-05 Yes 25mg Take 1 [facility] 25 mg 0-11 tablet by [facility] of tablet 00:00: mouth in [place] [address] the Medical morning Branch and 1 tablet at noon and 1 tablet in the evening. amiodarone 2021-05 Yes 200mg Take 1 [facility] 200 mg 0-11 tablet by [facility] of tablet 00:00: mouth in [place] 00 the Medical morning. Branch aspirin 2021-05 Yes 81mg Take 1 [facility] (NOEL LOW 0-11 tablet by [facility] of DOSE 00:00: mouth in [place] ASPIRIN) 81 00 the Medical mg EC morning. Branch tablet carvediloL 2021-05 Yes 6.25mg Take 1 [facility] vers 6.25 mg 0-11 tablet by [facility] of tablet 00:00: mouth in [place] 00 the Medical morning Branch and 1 tablet in the evening. Take with meals. meclizine 2021-05 Yes 25mg Take 1 [facility] 25 mg 0-11 tablet by [facility] of tablet 00:00: mouth in [place] 00 the Medical morning Branch and 1 tablet at noon and 1 tablet in the evening. amiodarone 2021-05 Yes 200mg Take 1 [facility] 200 mg 0-11 tablet by [facility] of tablet 00:00: mouth in [place] 00 the Medical morning. Branch aspirin 2021-05 Yes 81mg Take 1 [facility] (NOEL LOW 0-11 tablet by [facility] of DOSE 00:00: mouth in [place] ASPIRIN) 81 00 the Medical mg EC morning. Branch tablet carvediloL 2021-05 Yes 6.25mg Take 1 [facility] vers 6.25 mg 0-11 tablet by [facility] of tablet 00:00: mouth in [place] 00 the Medical morning Branch and 1 tablet in the evening. Take with meals. meclizine 2021-05 Yes 25mg Take 1 [facility] 25 mg 0-11 tablet by [facility] of tablet 00:00: mouth in [place] 00 the Medical morning Branch and 1 tablet at noon and 1 tablet in the evening. amiodarone 2021-05 Yes 200mg Take 1 [facility] 200 mg 0-11 tablet by [facility] of tablet 00:00: mouth in [place] 00 the Medical morning. Branch aspirin 2021-05 Yes 81mg Take 1 [facility] (NOEL LOW 0-11 tablet by [facility] of DOSE 00:00: mouth in [place] ASPIRIN) 81 00 the Medical mg EC morning. Branch tablet carvediloL 2021-05 Yes 6.25mg Take 1 [facility] vers 6.25 mg 0-11 tablet by [facility] of tablet 00:00: mouth in [place] 00 the Medical morning Branch and 1 tablet in the evening. Take with meals. meclizine 2021-05 Yes 25mg Take 1 [facility] 25 mg 0-11 tablet by [facility] of tablet 00:00: mouth in [place] 00 the Medical morning Branch and 1 tablet at noon and 1 tablet in the evening. amiodarone 2021-05 Yes 200mg Take 1 [facility] 200 mg 0-11 tablet by [facility] of tablet 00:00: mouth in [place] 00 the Medical morning. Branch aspirin 2021-05 Yes 81mg Take 1 [facility] (NOEL LOW 0-11 tablet by ity of DOSE 00:00: mouth in [place] ASPIRIN) 81 00 the Medical mg EC morning. Branch tablet carvediloL 2021-05 Yes 6.25mg Take 1 [facility] vers 6.25 mg 0-11 tablet by [facility] of tablet 00:00: mouth in [place] 00 the Medical morning Branch and 1 tablet in the evening. Take with meals. meclizine 2021-05 Yes 25mg Take 1 [facility] 25 mg 0-11 tablet by [facility] of tablet 00:00: mouth in [place] 00 the Medical morning Branch and 1 tablet at noon and 1 tablet in the evening. amiodarone 2021-05 Yes 200mg Take 1 [facility] 200 mg 0-11 tablet by [facility] of tablet 00:00: mouth in [place] 00 the Medical morning. Branch aspirin 2021-05 Yes 81mg Take 1 [facility] (NOEL LOW 0-11 tablet by [facility] of DOSE 00:00: mouth in [place] ASPIRIN) 81 00 the Medical mg EC morning. Branch tablet carvediloL 2021-05 Yes 6.25mg Take 1 [facility] vers 6.25 mg 0-11 tablet by [facility] of tablet 00:00: mouth in [place] 00 the Medical morning Branch and 1 tablet in the evening. Take with meals. meclizine 2021-05 Yes 25mg Take 1 [facility] 25 mg 0-11 tablet by [facility] of tablet 00:00: mouth in [place] 00 the Medical morning Branch and 1 tablet at noon and 1 tablet in the evening. amiodarone 2021-05 Yes 200mg Take 1 [facility] 200 mg 0-11 tablet by [facility] of tablet 00:00: mouth in [place] 00 the Medical morning. Branch aspirin 2021-05 Yes 81mg Take 1 [facility] (NOEL LOW 0-11 tablet by [facility] of DOSE 00:00: mouth in [place] ASPIRIN) 81 00 the Medical mg EC morning. Branch tablet carvediloL 2021-05 Yes 6.25mg Take 1 [facility] vers 6.25 mg 0-11 tablet by [facility] of tablet 00:00: mouth in [place] 00 the Medical morning Branch and 1 tablet in the evening. Take with meals. meclizine 2021-05 Yes 25mg Take 1 [facility] 25 mg 0-11 tablet by [facility] of tablet 00:00: mouth in [place] 00 the Medical morning Branch and 1 tablet at noon and 1 tablet in the evening. amiodarone 2021-05 Yes 200mg Take 1 [facility] 200 mg 0-11 tablet by [facility] of tablet 00:00: mouth in [place] 00 the Medical morning. Branch aspirin 2021-05 Yes 81mg Take 1 [facility] (NOEL LOW 0-11 tablet by [facility] of DOSE 00:00: mouth in [place] ASPIRIN) 81 00 the Medical mg EC morning. Branch tablet carvediloL 2021-05 Yes 6.25mg Take 1 [facility] vers 6.25 mg 0-11 tablet by [facility] of tablet 00:00: mouth in [place] 00 the Medical morning Branch and 1 tablet in the evening. Take with meals. meclizine 2021-05 Yes 25mg Take 1 [facility] 25 mg 0-11 tablet by [facility] of tablet 00:00: mouth in [place] 00 the Medical morning Branch and 1 tablet at noon and 1 tablet in the evening. amiodarone 2021-05 Yes 200mg Take 1 [facility] 200 mg 0-11 tablet by [facility] of tablet 00:00: mouth in [place] 00 the Medical morning. Branch aspirin 2021-05 Yes 81mg Take 1 [facility] (NOEL LOW 0-11 tablet by ity of DOSE 00:00: mouth in [place] ASPIRIN) 81 00 the Medical mg EC morning. Branch tablet carvediloL 2021-05 Yes 6.25mg Take 1 [facility] vers 6.25 mg 0-11 tablet by it[facility] of tablet 00:00: mouth in [place] 00 the Medical morning Branch and 1 tablet in the evening. Take with meals. meclizine 2021-05 Yes 25mg Take 1 [facility] 25 mg 0-11 tablet by it[facility] of tablet 00:00: mouth in [place] 00 the Medical morning Branch and 1 tablet at noon and 1 tablet in the evening. amiodarone 2021-05 Yes 200mg Take 1 [facility] 200 mg 0-11 tablet by [facility] of tablet 00:00: mouth in [place] the morning. Branch aspirin 81 2021-05 Yes 81mg Take 1 [facility] rs mg EC 0-11 tablet by ity of tablet 00:00: mouth in [place] the morning. Branch carvediloL 2021-05 Yes 6.25mg Take 1 [facility] vers 6.25 mg 0-11 tablet by [facility] of tablet 00:00: mouth in [place] the Medical morning Branch and 1 tablet in the evening. Take with meals. meclizine 2021-05 Yes 25mg Take 1 [facility] 25 mg 0-11 tablet by [facility] of tablet 00:00: mouth in [place] the Medical morning Branch and 1 tablet at noon and 1 tablet in the evening. amiodarone 2021-05 Yes 200mg Take 1 [facility] 200 mg 0-11 tablet by it[facility] of tablet 00:00: mouth in [place] the morning. Branch aspirin 81 2021-05 Yes 81mg Take 1 [facility] rs mg EC 0-11 tablet by it[facility] of tablet 00:00: mouth in [place] the morning. Branch carvediloL 2021-05 Yes 6.25mg Take 1 [facility] vers 6.25 mg 0-11 tablet by [facility] of tablet 00:00: mouth in [place] the Medical morning Branch and 1 tablet in the evening. Take with meals. meclizine 2021-05 Yes 25mg Take 1 [facility] 25 mg 0-11 tablet by it[facility] of tablet 00:00: mouth in [place] the Medical morning Branch and 1 tablet at noon and 1 tablet in the evening. amiodarone 2021-05 Yes 200mg Take 1 [facility] 200 mg 0-11 tablet by [facility] of tablet 00:00: mouth in [place] the morning. Branch aspirin 81 2021-05 Yes 81mg Take 1 [facility] rs mg EC 0-11 tablet by it[facility] of tablet 00:00: mouth in [place] the morning. Branch carvediloL 2021-05 Yes 6.25mg Take 1 [facility] vers 6.25 mg 0-11 tablet by [facility] of tablet 00:00: mouth in [place] the Medical morning Branch and 1 tablet in the evening. Take with meals. meclizine 2021-05 Yes 25mg Take 1 [facility] 25 mg 0-11 tablet by it[facility] of tablet 00:00: mouth in [place] [address] the Medical morning Branch and 1 tablet at noon and 1 tablet in the evening. amiodarone 2021-05 Yes 200mg Take 1 [facility] 200 mg 0-11 tablet by it[facility] of tablet 00:00: mouth in [place] the morning. Branch aspirin 81 2021-05 Yes 81mg Take 1 [facility] rs mg EC 0-11 tablet by [facility] of tablet 00:00: mouth in [place] the morning. Branch carvediloL 2021-05 Yes 6.25mg Take 1 [facility] vers 6.25 mg 0-11 tablet by [facility] of tablet 00:00: mouth in [place] the Medical morning Branch and 1 tablet in the evening. Take with meals. meclizine 2021-05 Yes 25mg Take 1 [facility] 25 mg 0-11 tablet by [facility] of tablet 00:00: mouth in [place] the Medical morning Branch and 1 tablet at noon and 1 tablet in the evening. amiodarone 2021-05 Yes 200mg Take 1 [facility] 200 mg 0-11 tablet by it[facility] of tablet 00:00: mouth in [place] the morning. Branch aspirin 81 2021-05 Yes 81mg Take 1 [facility] rs mg EC 0-11 tablet by it[facility] of tablet 00:00: mouth in [place] the morning. Branch carvediloL 2021-05 Yes 6.25mg Take 1 [facility] vers 6.25 mg 0-11 tablet by it[facility] of tablet 00:00: mouth in [place] the Medical morning Branch and 1 tablet in the evening. Take with meals. meclizine 2021- Yes 25mg Take 1 [facility] 25 mg 0-11 tablet by it[facility] of tablet 00:00: mouth in [place] the Medical morning Branch and 1 tablet at noon and 1 tablet in the evening. amiodarone 2021- Yes 200mg Take 1 [facility] 200 mg 0-11 tablet by ity of tablet 00:00: mouth in [place] the morning. Branch aspirin 81 2021-05 Yes 81mg Take 1 [facility] rs mg EC 0-11 tablet by it[facility] of tablet 00:00: mouth in [place] the morning. Branch carvediloL 2021-05 Yes 6.25mg Take 1 [facility] vers 6.25 mg 0-11 tablet by it[facility] of tablet 00:00: mouth in [place] the Medical morning Branch and 1 tablet in the evening. Take with meals. meclizine 2021-05 Yes 25mg Take 1 [facility] 25 mg 0-11 tablet by it[facility] of tablet 00:00: mouth in [place] the morning Branch and 1 tablet at noon and 1 tablet in the evening. amiodarone 2021-05 Yes 200mg Take 1 [facility] 200 mg 0-11 tablet by ity of tablet 00:00: mouth in [place] the . Branch aspirin 81 2021-05 Yes 81mg Take 1 [facility] rs mg EC 0-11 tablet by ity of tablet 00:00: mouth in [place] the morning. Branch carvediloL 2021-05 Yes 6.25mg Take 1 [facility] vers 6.25 mg 0-11 tablet by ity of tablet 00:00: mouth in [place] the morning Branch and 1 tablet in the evening. Take with meals. meclizine 2021-05 Yes 25mg Take 1 [facility] 25 mg 0-11 tablet by it[facility] of tablet 00:00: mouth in [place] the morning Branch and 1 tablet at noon and 1 tablet in the evening. amiodarone 2021-05 Yes 200mg Take 1 [facility] 200 mg 0-11 tablet by ity of tablet 00:00: mouth in [place] the . Branch aspirin 81 2021-05 Yes 81mg Take 1 [facility] rs mg EC 0-11 tablet by ity of tablet 00:00: mouth in [place] the . Branch carvediloL 2021-05 Yes 6.25mg Take 1 [facility] vers 6.25 mg 0-11 tablet by ity of tablet 00:00: mouth in [place] the morning Branch and 1 tablet in the evening. Take with meals. meclizine 2021-05 Yes 25mg Take 1 [facility] 25 mg 0-11 tablet by it[facility] of tablet 00:00: mouth in [place] the morning Branch and 1 tablet at noon and 1 tablet in the evening. amiodarone 2021-05 Yes 200mg Take 1 [facility] 200 mg 0-11 tablet by ity of tablet 00:00: mouth in [place] the morning. Branch aspirin 81 2021-05 Yes 81mg Take 1 [facility] rs mg EC 0-11 tablet by ity of tablet 00:00: mouth in [place] the . Branch carvediloL 2021-05 Yes 6.25mg Take 1 [facility] vers 6.25 mg 0-11 tablet by ity of tablet 00:00: mouth in [place] the morning Branch and 1 tablet in the evening. Take with meals. meclizine 2021-05 Yes 25mg Take 1 [facility] 25 mg 0-11 tablet by it[facility] of tablet 00:00: mouth in [place] the morning Branch and 1 tablet at noon and 1 tablet in the evening. amiodarone 2021-05 Yes 200mg Take 1 [facility] 200 mg 0-11 tablet by ity of tablet 00:00: mouth in [place] the morning. Branch aspirin 81 2021-05 Yes 81mg Take 1 [facility] mg EC 0-11 tablet by ity of tablet 00:00: mouth in [place] the . Branch carvediloL 2021-05 Yes 6.25mg Take 1 [facility] vers 6.25 mg 0-11 tablet by ity of tablet 00:00: mouth in [place] the morning Branch and 1 tablet in the evening. Take with meals. meclizine 2021-05 Yes 25mg Take 1 [facility] 25 mg 0-11 tablet by it[facility] of tablet 00:00: mouth in [place] the morning Branch and 1 tablet at noon and 1 tablet in the evening. amiodarone 2021-05 Yes 200mg Take 1 [facility] 200 mg 0-11 tablet by ity of tablet 00:00: mouth in [place] the . Branch aspirin 81 2021-05 Yes 81mg Take 1 [facility] rs mg EC 0-11 tablet by ity of tablet 00:00: mouth in [place] the . Branch carvediloL 2021-05 Yes 6.25mg Take 1 [facility] vers 6.25 mg 0-11 tablet by it[facility] of tablet 00:00: mouth in [place] the morning Branch and 1 tablet in the evening. Take with meals. meclizine 2021-05 Yes 25mg Take 1 [facility] 25 mg 0-11 tablet by it[facility] of tablet 00:00: mouth in [place] the Medical morning Branch and 1 tablet at noon and 1 tablet in the evening. amiodarone 2021-05 Yes 200mg Take 1 [facility] 200 mg 0-11 tablet by ity of tablet 00:00: mouth in [place] the morning. Branch aspirin 81 2021-05 Yes 81mg Take 1 [facility] rs mg EC 0-11 tablet by ity of tablet 00:00: mouth in [place] the morning. Branch carvediloL 2021-05 Yes 6.25mg Take 1 [facility] vers 6.25 mg 0-11 tablet by it[facility] of tablet 00:00: mouth in [place] the Medical morning Branch and 1 tablet in the evening. Take with meals. meclizine 2021-05 Yes 25mg Take 1 [facility] 25 mg 0-11 tablet by it[facility] of tablet 00:00: mouth in [place] the Medical morning Branch and 1 tablet at noon and 1 tablet in the evening. amiodarone 2021-05 Yes 200mg Take 1 [facility] 200 mg 0-11 tablet by it[facility] of tablet 00:00: mouth in [place] the morning. Branch aspirin 81 2021-05 Yes 81mg Take 1 [facility] rs mg EC 0-11 tablet by it[facility] of tablet 00:00: mouth in [place] the morning. Branch carvediloL 2021-05 Yes 6.25mg Take 1 [facility] vers 6.25 mg 0-11 tablet by it[facility] of tablet 00:00: mouth in [place] the Medical morning Branch and 1 tablet in the evening. Take with meals. meclizine 2021-05 Yes 25mg Take 1 [facility] 25 mg 0-11 tablet by it[facility] of tablet 00:00: mouth in [place] the Medical morning Branch and 1 tablet at noon and 1 tablet in the evening. amiodarone 2021-05 Yes 200mg Take 1 [facility] 200 mg 0-11 tablet by it[facility] of tablet 00:00: mouth in [place] the morning. Branch aspirin 81 2021-05 Yes 81mg Take 1 [facility] mg EC 0-11 tablet by it[facility] of tablet 00:00: mouth in [place] the morning. Branch carvediloL 2021-05 Yes 6.25mg Take 1 [facility] vers 6.25 mg 0-11 tablet by ity of tablet 00:00: mouth in [place] the Medical morning Branch and 1 tablet in the evening. Take with meals. meclizine 2021-05 Yes 25mg Take 1 [facility] 25 mg 0-11 tablet by it[facility] of tablet 00:00: mouth in [place] the Medical morning Branch and 1 tablet at noon and 1 tablet in the evening. amiodarone 2021-05 Yes 200mg Take 1 [facility] 200 mg 0-11 tablet by it[facility] of tablet 00:00: mouth in [place] the morning. Branch aspirin 81 2021-05 Yes 81mg Take 1 [facility] rs mg EC 0-11 tablet by ity of tablet 00:00: mouth in [place] the morning. Branch carvediloL 2021-05 Yes 6.25mg Take 1 [facility] vers 6.25 mg 0-11 tablet by it[facility] of tablet 00:00: mouth in [place] the Medical morning Branch and 1 tablet in the evening. Take with meals. meclizine 2021-05 Yes 25mg Take 1 [facility] 25 mg 0-11 tablet by it[facility] of tablet 00:00: mouth in [place] the Medical morning Branch and 1 tablet at noon and 1 tablet in the evening. amiodarone 2021-05 Yes 200mg Take 1 [facility] 200 mg 0-11 tablet by it[facility] of tablet 00:00: mouth in [place] the morning. Branch aspirin 81 2021-05 Yes 81mg Take 1 [facility] rs mg EC 0-11 tablet by ity of tablet 00:00: mouth in [place] the morning. Branch carvediloL 2021-05 Yes 6.25mg Take 1 [facility] vers 6.25 mg 0-11 tablet by it[facility] of tablet 00:00: mouth in [place] the Medical morning Branch and 1 tablet in the evening. Take with meals. meclizine 2021-05 Yes 25mg Take 1 [facility] 25 mg 0-11 tablet by ity of tablet 00:00: mouth in [place] the Medical morning Branch and 1 tablet at noon and 1 tablet in the evening. amiodarone 2021-05 Yes 200mg Take 1 [facility] 200 mg 0-11 tablet by it[facility] of tablet 00:00: mouth in [place] the morning. Branch bumetanide 2021- Yes 1mg Take 1 [facility] rs 1 mg tablet 7-19 tablet by ity of 00:00: mouth in [place] [address] the Medical morning Branch and 1 tablet in the evening. bumetanide 2021-0 Yes 1mg Take 1 [facility] rs 1 mg tablet 7-19 tablet by ity of 00:00: mouth in [place] [address] the Medical morning Branch and 1 tablet in the evening. bumetanide 2022-0 Yes 1mg Take 1 [facility] rs 1 mg tablet 7-19 tablet by ity of 00:00: mouth in [place] 00 the Medical morning Branch and 1 tablet in the evening. bumetanide 2022-0 Yes 1mg Take 1 [facility] rs 1 mg tablet 7-19 tablet by ity of 00:00: mouth in [place] 00 the Medical morning Branch and 1 tablet in the evening. bumetanide 2022-0 Yes 1mg Take 1 [facility] rs 1 mg tablet 7-19 tablet by ity of 00:00: mouth in [place] 00 the Medical morning Branch and 1 tablet in the evening. bumetanide 2022-0 Yes 1mg Take 1 [facility] rs 1 mg tablet 7-19 tablet by ity of 00:00: mouth in [place] [address] the Medical morning Branch and 1 tablet in the evening. bumetanide 2022-0 Yes 1mg Take 1 [facility] rs 1 mg tablet 7-19 tablet by ity of 00:00: mouth in [place] [address] the Medical morning Branch and 1 tablet in the evening. bumetanide 2022-0 Yes 1mg Take 1 [facility] rs 1 mg tablet 7-19 tablet by ity of 00:00: mouth in [place] [address] the Medical morning Branch and 1 tablet in the evening. bumetanide 2022-0 Yes 1mg Take 1 [facility] rs 1 mg tablet 7-19 tablet by ity of 00:00: mouth in [place] [address] the Medical morning Branch and 1 tablet in the evening. bumetanide 2022-0 Yes 1mg Take 1 [facility] rs 1 mg tablet 7-19 tablet by ity of 00:00: mouth in [place] [address] the Medical morning Branch and 1 tablet in the evening. bumetanide 2022-0 Yes 1mg Take 1 [facility] rs 1 mg tablet 7-19 tablet by ity of 00:00: mouth in [place] [address] the Medical morning Branch and 1 tablet in the evening. bumetanide 2022-0 Yes 1mg Take 1 [facility] rs 1 mg tablet 7-19 tablet by ity of 00:00: mouth in [place] [address] the Medical morning Branch and 1 tablet in the evening. bumetanide 2022-0 Yes 1mg Take 1 [facility] rs 1 mg tablet 7-19 tablet by ity of 00:00: mouth in [place] 00 the Medical morning Branch and 1 tablet in the evening. bumetanide 2-0 Yes 1mg Take 1 [facility] 1 mg tablet 7-19 tablet by ity of 00:00: mouth in [place] 00 the Medical morning Branch and 1 tablet in the evening. bumetanide 2-0 Yes 1mg Take 1 [facility] rs 1 mg tablet 7-19 tablet by ity of 00:00: mouth in [place] 00 the Medical morning Branch and 1 tablet in the evening. bumetanide 2-0 Yes 1mg Take 1 [facility] rs 1 mg tablet 7-19 tablet by ity of 00:00: mouth in [place] 00 the Medical morning Branch and 1 tablet in the evening. bumetanide 2021-0 Yes 1mg Take 1 [facility] rs 1 mg tablet 7-19 tablet by ity of 00:00: mouth in [place] [address] the Medical morning Branch and 1 tablet in the evening. bumetanide 2021-0 Yes 1mg Take 1 [facility] rs 1 mg tablet 7-19 tablet by ity of 00:00: mouth in [place] [address] the Medical morning Branch and 1 tablet in the evening. bumetanide 2021-0 Yes 1mg Take 1 [facility] rs 1 mg tablet 7-19 tablet by ity of 00:00: mouth in [place] [address] the Medical morning Branch and 1 tablet in the evening. bumetanide 2021-0 Yes 1mg Take 1 [facility] 1 mg tablet 7-19 tablet by ity of 00:00: mouth in [place] [address] the Medical morning [place] and 1 tablet in the evening. bumetanide 2021-0 2022- No 1mg Take 1 [facility] ers 1 mg tablet 7-19 -12 tablet by it y of 00:00: 00:00 mouth in [place] 00 :00 the Medical morning Branch and 1 tablet in the evening. Mupirocin 2 Mupirocin 2 2021-0 2- No 1{appli BID Mupirocin % % 12-04 07-24 cation} 2 % 00:00: 00:00 00 :00 glimepiride 2021-0 Yes 2mg Take 2 mg U nivers 2 mg tablet 4-08 by mouth ity of 16:21: daily with [place] [address] breakfast. Medical Branch glimepiride 2022-0 Yes 2mg Take 2 mg [facility] nivers 2 mg tablet 4-08 by mouth ity of 16:21: daily with [place] [address] breakfast. Medical Branch glimepiride 2-0 Yes 2mg Take 2 mg U nivers 2 mg tablet 4-08 by mouth ity of 16:21: daily with [place] [address] breakfast. Medical Branch glimepiride 2-0 Yes 2mg Take 2 mg [facility] nivers 2 mg tablet 4-08 by mouth ity of 16:21: daily with [place] [address] breakfast. Medical Branch glimepiride 2-0 Yes 2mg Take 2 mg U nivers 2 mg tablet 4-08 by mouth ity of 16:21: daily with [place] [address] breakfast. Medical Branch glimepiride 2-0 Yes 2mg Take 2 mg U nivers 2 mg tablet 4-08 by mouth ity of 16:21: daily with [place] [address] breakfast. Medical Branch glimepiride 2-0 Yes 2mg Take 2 mg U nivers 2 mg tablet 4-08 by mouth ity of 16:21: daily with [place] [address] breakfast. Medical Branch glimepiride 2-0 Yes 2mg Take 2 mg U nivers 2 mg tablet 4-08 by mouth ity of 16:21: daily with [place] [address] breakfast. Medical Branch glimepiride 2-0 Yes 2mg Take 2 mg U nivers 2 mg tablet 4-08 by mouth ity of 16:21: daily with [place] [address] breakfast. Medical Branch glimepiride 2-0 Yes 2mg Take 2 mg U nivers 2 mg tablet 4-08 by mouth ity of 16:21: daily with [place] [address] breakfast. Medical Branch glimepiride 2-0 Yes 2mg Take 2 mg U nivers 2 mg tablet 4-08 by mouth ity of 16:21: daily with [place] [address] breakfast. Medical Branch glimepiride 2-0 Yes 2mg Take 2 mg U nivers 2 mg tablet 4-08 by mouth ity of 16:21: daily with [place] [address] breakfast. Medical Branch glimepiride 2-0 Yes 2mg Take 2 mg U n[facility] 2 mg tablet 4-08 by mouth ity of 16:21: daily with [place] [address] breakfast. Medical Branch glimepiride 2-0 Yes 2mg Take 2 mg U nivers 2 mg tablet 4-08 by mouth ity of 16:21: daily with [place] [address] breakfast. [facility] glimepiride 0 Yes 2mg Take 2 mg U nivers 2 mg tablet 4-08 by mouth ity of 16:21: daily with [place] [address] breakfast. [facility] glimepiride 0 Yes 2mg Take 2 mg U nivers 2 mg tablet 4-08 by mouth ity of 16:21: daily with [place] [address] breakfast. [facility] Branch glimepiride 0 Yes 2mg Take 2 mg U nivers 2 mg tablet 4-08 by mouth ity of 16:21: daily with [place] [address] breakfast. [facility] glimepiride 0 Yes 2mg Take 2 mg U nivers 2 mg tablet 4-08 by mouth ity of 16:21: daily with [place] [address] breakfast. [facility] glimepiride Yes 2mg Take 2 mg U nivers 2 mg tablet 4-08 by mouth ity of 16:21: daily with [place] [address] breakfast. [facility] glimepiride Yes 2mg Take 2 mg U nivers 2 mg tablet 4-08 by mouth ity of 16:21: daily with [place] [address] breakfast. [facility] glimepiride Yes 2mg Take 2 mg U nivers 2 mg tablet 4-08 by mouth ity of 16:21: daily with [place] [address] breakfast. [facility] glimepiride Yes 2mg Take 2 mg U nivers 2 mg tablet 4-08 by mouth ity of 16:21: daily with [place] [address] breakfast. [facility] glimepiride 0 Yes 2mg Take 2 mg U nivers 2 mg tablet 4-08 by mouth ity of 16:21: daily with [place] [address] breakfast. [facility] glimepiride 0 Yes 2mg Take 2 mg U nivers 2 mg tablet 4-08 by mouth ity of 16:21: daily with [place] [address] breakfast. [facility] spironolact Yes [id number] 12.5mg Take 0.5 [facility] one 25 mg 4-08 tablets by ity of tablet 00:00: mouth [place] 00 daily. [facility] bumetanide 0 Yes [id number] 1mg Take 1 [facility] 1 mg tablet 4-08 tablet by ity of 00:00: mouth [place] 00 daily. Medical Branch empaglifloz 2-0 Yes [id number] 10mg Take 1 [facility] in 10 mg 4-08 tablet by ity of 00:00: mouth [place] 00 daily. Medical Branch spironolact 2-0 Yes [id number] 12.5mg Take 0.5 [facility] one 25 mg 4-08 tablets by ity of tablet 00:00: mouth [place] 00 daily. Medical Branch empaglifloz 2-0 Yes [id number] 10mg Take 1 [facility] in 10 mg 4-08 tablet by ity of 00:00: mouth [place] 00 daily. Medical Branch spironolact 2-0 Yes [id number] 12.5mg Take 0.5 [facility] one 25 mg 4-08 tablets by ity of tablet 00:00: mouth [place] 00 daily. [facility] Branch empaglifloz 2-0 Yes [id number] 10mg Take 1 [facility] in 10 mg 4-08 tablet by ity of 00:00: mouth [place] 00 daily. [facility] Branch spironolact 2021-0 Yes [id number] 12.5mg Take 0.5 [facility] one 25 mg 4-08 tablets by ity of tablet 00:00: mouth [place] 00 daily. [facility] Branch empaglifloz 2021-0 Yes [id number] 10mg Take 1 [facility] in 10 mg 4-08 tablet by ity of 00:00: mouth [place] 00 daily. [facility] Branch spironolact 2-0 Yes [id number] 12.5mg Take 0.5 [facility] one 25 mg 4-08 tablets by ity of tablet 00:00: mouth [place] 00 daily. Medical Branch empaglifloz 2-0 Yes [id number] 10mg Take 1 [facility] in 10 mg 4-08 tablet by ity of 00:00: mouth [place] 00 daily. Medical Branch spironolact 2-0 Yes [id number] 12.5mg Take 0.5 [facility] one 25 mg 4-08 tablets by ity of tablet 00:00: mouth [place] 00 daily. [facility] Branch empaglifloz 2-0 Yes [id number] 10mg Take 1 [facility] in 10 mg 4-08 tablet by ity of 00:00: mouth [place] 00 daily. [facility] Branch spironolact 2-0 Yes [id number] 12.5mg Take 0.5 [facility] one 25 mg 4-08 tablets by ity of tablet 00:00: mouth [place] 00 daily. Medical Branch empaglifloz 2-0 Yes [id number] 10mg Take 1 [facility] in 10 mg 4-08 tablet by ity of 00:00: mouth [place] 00 daily. Medical Branch spironolact 2021-0 Yes [id number] 12.5mg Take 0.5 [facility] one 25 mg 4-08 tablets by ity of tablet 00:00: mouth [place] 00 daily. Medical Branch empaglifloz 2021-0 Yes [id number] 10mg Take 1 [facility] in 10 mg 4-08 tablet by ity of 00:00: mouth [place] 00 daily. [facility] Branch spironolact 2021-0 Yes [id number] 12.5mg Take 0.5 [facility] one 25 mg 4-08 tablets by ity of tablet 00:00: mouth [place] 00 daily. Medical Branch empaglifloz 2021-0 Yes [id number] 10mg Take 1 [facility] in 10 mg 4-08 tablet by ity of 00:00: mouth [place] 00 daily. Medical Branch spironolact 2021-0 Yes [id number] 12.5mg Take 0.5 [facility] one 25 mg 4-08 tablets by ity of tablet 00:00: mouth [place] 00 daily. [facility] Branch empaglifloz 2021-0 Yes [id number] 10mg Take 1 [facility] in 10 mg 4-08 tablet by ity of 00:00: mouth [place] 00 daily. Medical Branch spironolact 2021-0 Yes [id number] 12.5mg Take 0.5 [facility] one 25 mg 4-08 tablets by ity of tablet 00:00: mouth [place] 00 daily. Medical Branch empaglifloz 2021-0 Yes [id number] 10mg Take 1 [facility] in 10 mg 4-08 tablet by ity of 00:00: mouth [place] 00 daily. Medical Branch spironolact 2-0 Yes [id number] 12.5mg Take 0.5 [facility] one 25 mg 4-08 tablets by ity of tablet 00:00: mouth [place] 00 daily. Medical Branch empaglifloz 2-0 Yes [id number] 10mg Take 1 [facility] in 10 mg 4-08 tablet by ity of 00:00: mouth [place] 00 daily. Medical Branch spironolact 2021-0 Yes [id number] 12.5mg Take 0.5 [facility] one 25 mg 4-08 tablets by ity of tablet 00:00: mouth [place] 00 daily. [facility] Branch empaglifloz 2-0 Yes [id number] 10mg Take 1 [facility] in 10 mg 4-08 tablet by ity of 00:00: mouth [place] 00 daily. [facility] Branch spironolact 2-0 Yes [id number] 12.5mg Take 0.5 [facility] one 25 mg 4-08 tablets by ity of tablet 00:00: mouth [place] 00 daily. [facility] Branch empaglifloz 2-0 Yes [id number] 10mg Take 1 [facility] in 10 mg 4-08 tablet by ity of 00:00: mouth [place] 00 daily. [facility] Branch spironolact 2-0 Yes [id number] 12.5mg Take 0.5 [facility] one 25 mg 4-08 tablets by ity of tablet 00:00: mouth [place] 00 daily. [facility] empaglifloz 2-0 Yes [id number] 10mg Take 1 [facility] in 10 mg 4-08 tablet by ity of 00:00: mouth [place] 00 daily. [facility] spironolact 2021-0 Yes [id number] 12.5mg Take 0.5 [facility] one 25 mg 4-08 tablets by ity of tablet 00:00: mouth [place] 00 daily. [facility] empaglifloz 2-0 Yes [id number] 10mg Take 1 [facility] in 10 mg 4-08 tablet by ity of 00:00: mouth [place] 00 daily. [facility] spironolact 2-0 Yes [id number] 12.5mg Take 0.5 [facility] one 25 mg 4-08 tablets by ity of tablet 00:00: mouth [place] 00 daily. [facility] Branch empaglifloz 2-0 Yes [id number] 10mg Take 1 [facility] in 10 mg 4-08 tablet by ity of 00:00: mouth [place] 00 daily. [facility] spironolact 2-0 Yes [id number] 12.5mg Take 0.5 [facility] one 25 mg 4-08 tablets by ity of tablet 00:00: mouth [place] 00 daily. [facility] empaglifloz 2-0 Yes [id number] 10mg Take 1 [facility] in 10 mg 4-08 tablet by ity of 00:00: mouth [place] 00 daily. [facility] spironolact 2-0 Yes [id number] 12.5mg Take 0.5 [facility] one 25 mg 4-08 tablets by ity of tablet 00:00: mouth [place] 00 daily. Medical Branch empaglifloz 2-0 Yes [id number] 10mg Take 1 [facility] in 10 mg 4-08 tablet by ity of 00:00: mouth [place] 00 daily. Medical Branch spironolact 2-0 Yes [id number] 12.5mg Take 0.5 [facility] one 25 mg 4-08 tablets by ity of tablet 00:00: mouth [place] 00 daily. Medical Branch empaglifloz 2-0 Yes [id number] 10mg Take 1 [facility] in 10 mg 4-08 tablet by ity of 00:00: mouth [place] 00 daily. [facility] Branch spironolact 2-0 Yes [id number] 12.5mg Take 0.5 [facility] one 25 mg 4-08 tablets by ity of tablet 00:00: mouth [place] 00 daily. Medical Branch empaglifloz 2-0 Yes [id number] 10mg Take 1 [facility] in 10 mg 4-08 tablet by ity of 00:00: mouth [place] 00 daily. Medical Branch spironolact 2021-0 Yes [id number] 12.5mg Take 0.5 [facility] one 25 mg 4-08 tablets by ity of tablet 00:00: mouth [place] 00 daily. Medical Branch empaglifloz 2-0 Yes [id number] 10mg Take 1 [facility] in 10 mg 4-08 tablet by ity of 00:00: mouth [place] 00 daily. Medical Branch spironolact 2-0 Yes [id number] 12.5mg Take 0.5 [facility] one 25 mg 4-08 tablets by ity of tablet 00:00: mouth [place] 00 daily. Medical Branch empaglifloz 2-0 Yes [id number] 10mg Take 1 [facility] in 10 mg 4-08 tablet by ity of 00:00: mouth [place] 00 daily. Medical Branch spironolact 2-0 Yes [id number] 12.5mg Take 0.5 Univers one 25 mg 4-08 tablets by ity of tablet 00:00: mouth [place] 00 daily. Medical Branch empaglifloz 2-0 Yes [id number] 10mg Take 1 Univers in 10 mg 4-08 tablet by ity of 00:00: mouth [place] 00 daily. [facility] Branch spironolact 2-0 Yes [id number] 12.5mg Take 0.5 Univers one 25 mg 4-08 tablets by ity of tablet 00:00: mouth [place] 00 daily. Medical Branch empaglifloz 2-0 Yes [id number] 10mg Take 1 Univers in 10 mg 4-08 tablet by ity of 00:00: mouth [place] 00 daily. [facility] Branch spironolact 2-0 Yes [id number] 12.5mg Take 0.5 Univers one 25 mg 4-08 tablets by ity of tablet 00:00: mouth [place] 00 daily. [facility] Branch empaglifloz 2-0 Yes [id number] 10mg Take 1 Univers in 10 mg 4-08 tablet by ity of 00:00: mouth [place] 00 daily. [facility] Branch spironolact 2-0 Yes [id number] 12.5mg Take 0.5 Univers one 25 mg 4-08 tablets by ity of tablet 00:00: mouth [place] 00 daily. [facility] Branch empaglifloz 2-0 Yes [id number] 10mg Take 1 Univers in 10 mg 4-08 tablet by ity of 00:00: mouth [place] 00 daily. [facility] spironolact 2021-0 Yes [id number] 12.5mg Take 0.5 Univers one 25 mg 4-08 tablets by ity of tablet 00:00: mouth [place] 00 daily. [facility] Branch empaglifloz 2-0 Yes [id number] 10mg Take 1 Univers in 10 mg 4-08 tablet by ity of 00:00: mouth [place] 00 daily. [facility] Branch spironolact 2-0 Yes [id number] 12.5mg Take 0.5 Univers one 25 mg 4-08 tablets by ity of tablet 00:00: mouth [place] 00 daily. [facility] Branch empaglifloz 2-0 Yes [id number] 10mg Take 1 Univers in 10 mg 4-08 tablet by ity of 00:00: mouth [place] 00 daily. [facility] Branch spironolact 2-0 Yes [id number] 12.5mg Take 0.5 Univers one 25 mg 4-08 tablets by ity of tablet 00:00: mouth [place] 00 daily. [facility] empaglifloz 2-0 Yes [id number] 10mg Take 1 Univers in 10 mg 4-08 tablet by ity of 00:00: mouth [place] 00 daily. [facility] Branch spironolact 2021-0 Yes [id number] 12.5mg Take 0.5 Univers one 25 mg 4-08 tablets by ity of tablet 00:00: mouth [place] 00 daily. [facility] empaglifloz 2021-0 Yes [id number] 10mg Take 1 Univers in 10 mg 4-08 tablet by ity of 00:00: mouth [place] 00 daily. [facility] spironolact 2021-0 Yes [id number] 12.5mg Take 0.5 Univers one 25 mg 4-08 tablets by ity of tablet 00:00: mouth [place] 00 daily. [facility] empaglifloz 2021-0 Yes [id number] 10mg Take 1 Univers in 10 mg 4-08 tablet by ity of 00:00: mouth [place] 00 daily. [facility] empaglifloz 2021-0 Yes [id number] 10mg Take 1 Univers in 10 mg 4-08 tablet by ity of 00:00: mouth [place] 00 daily. [facility] empaglifloz 2021-0 Yes [id number] 10mg Take 1 Univers in 10 mg 4-08 tablet by ity of 00:00: mouth [place] 00 daily. [facility] empaglifloz 2021-0 2022- No [id number] 10mg Take 1 Univers in 10 mg 4-08 04-03 tablet by ity o f 00:00: 00:00 mouth [place] 00 :00 daily. [facility] empaglifloz 2021-0 2022- No [id number] 10mg Take 1 Univers in 10 mg 4-08 04-03 tablet by ity o f 00:00: 00:00 mouth [place] 00 :00 daily. [facility] empaglifloz 2021-0 3- No [id number] 10mg Take 1 Univers in 10 mg 4-08 04-03 tablet by ity o f 00:00: 00:00 mouth [place] 00 :00 daily. [facility] spironolact 2021-0 3- No [id number] 12.5mg Take 0.5 Univers one 25 mg 4-08 03-29 tablets by ity of tablet 00:00: 00:00 mouth [place] 00 :00 daily. [facility] bumetanide 2021-0 2021- No [id number] 1mg Take 1 Univers 1 mg tablet [...] ASPIRIN 2-01 mouth. ity of ORAL 14:05: Medical Branch metformin 2021-0 Yes 500mg Take [...] ASPIRIN 2-01 mouth. ity of ORAL 14:05: [place] [address] Medical Branch metformin 2021-0 Yes 500mg Take [...] by ity of tablet 14:05: mouth 2 [place] [address] (two) Medical times Branch daily with meals. NOEL 2021-0 Yes Take by Univers ASPIRIN 2-01 mouth. ity of ORAL 14:05: [place] [address] Medical Branch metformin 2021-0 Yes 500mg Take [...] by ity of tablet 14:05: mouth 2 [place] [address] (two) Medical times Branch daily with meals. NOEL 2021-0 Yes Take by Univers ASPIRIN 2-01 mouth. ity of ORAL 14:05: [address] Branch metformin 2021-0 Yes 500mg Take 500 [...] by ity of tablet 14:05: mouth 2 [place] [address] (two) Medical times Branch daily with meals. NOEL 2021-0 Yes Take by Univers ASPIRIN 2-01 mouth. ity of ORAL 14:05: [place] [address] Medical Branch metformin 2021-0 Yes 500mg Take [...] by ity of tablet 14:05: mouth 2 [place] 56 (two) Medical times Branch daily with meals. NOEL 2-0 Yes Take by Univers ASPIRIN 2-01 mouth. ity of ORAL 14:05: [place] [address] Medical Branch metformin 2021-0 Yes 500mg Take [...] by ity of tablet 14:05: mouth 2 [place] [address] (two) Medical times Branch daily with meals. NOEL 2021-0 Yes Take by Univers ASPIRIN 2-01 mouth. ity of ORAL 14:05: [place] [address] Medical Branch metformin 2021-0 Yes 500mg Take 500 Uni vers HCl 2-01 mg by ity of (METFORMIN 14:05: [place] (two) Medical times Branch daily with meals. sacubitriL- 2-0 Yes 1{tbl} Take 1 Un winter valsartan 2-01 tablet by ity o f 49-51 mg 14:05: mouth 2 [place] tablet 56 (two) Medical times Branch daily. carvediloL 2-0 Yes 12.5mg Take 12.5 Univers 12.5 mg 2-01 mg by ity of tablet 14:05: mouth 2 [place] 56 (two) Medical times Branch daily with meals. NOEL 2-0 Yes Take by Univers ASPIRIN 2-01 mouth. ity of ORAL 14:05: [place] [address] Medical Branch metformin 2-0 Yes 500mg Take [...] ASPIRIN 2-01 mouth. ity of ORAL 14:05: [place] [address] Medical Branch metformin 2-0 Yes 500mg Take [...] ASPIRIN 2-01 mouth. ity of ORAL 14:05: [place] [address] Medical Branch metformin 2-0 Yes 500mg Take [...] [Zanaflex] 00 30 tab, 3 Refill(s), Pharmacy: [id number], 154.94, cm, 03/22/21 13:32:00 [...] l oral tablet 19:54: Q12H, # 60 [place] 00 tab, 0 Refill(s) GLIMEPIRIDE 2020-05 Yes GLIMEPIRID Mem[facility] 2MG TAB 0-06 E 2MG TAB, l 19:53: Refill(s) [place] 00 0 sacubitril 2020-05 Yes 0 [place] 49 MG / 0-06 Refill(s) l valsartan 19:53: [place] 51 MG Oral 00 Tablet [Entresto] Furosemide 2020-05 Yes 40 mg = 1 Me moria 40 MG Oral 0-06 tab, PO, l Tablet 19:52: Daily, # [place] 00 30 tab, 0 Refill(s) Iron 325 [...] lancets St formulary [facility] insurance) [place] Blood Blood 2018-05 Yes Kilo as Common Glucose Glucose 2-03 Heranndez directed Spir it Test Strip Test Strip 00:00: (DISPENSE - [facility] [address] GLUCOSE [facility] TEST Medical STRIPS [place] FORMULARY TO INSURANCE) Blood Blood 2018-05 No [...] every 4 ity of mL (0.083 00:00: ([facility] [place] %) 00 hours. May Medical nebulizer [...] every 4 ity of mL (0.083 00:00: [facility] [place] %) 00 hours. May Medical nebulizer [...] one extra every 6 hours. Glimepiride Glimepiride Yes Kilo 1 tablet Common Hernandez [facility] Noel Noel Yes Kilo 1 tablet Common Aspirin EC Aspirin EC Hernandez Sp loren Low Dose Low Dose [facility] Lisinopril Lisinopril Yes Kilo 1 tablet Common Hernandez [facility] Furosemide Furosemide Yes Kilo 1 tablet Common Hernandez in am [facility] Coreg Coreg Yes Kilo 1 tablet Common Hernandez [facility] Metformin Metformin Yes Kilo 1 tablet Common HCl HCl Hernandez with meals [facility] Entresto Entresto Yes Kilo 1 tablet C ommon 49/51mg 49/51mg [facility] metFORMIN metFORMIN No metFORMIN HCl 500 MG [...] 40 MG 40 MG 40 MG Noel Neol No 1{table QD Noel Aspirin EC Aspirin [...] MG 2 MG e 2 MG Noel Kaminario No 1{table QD Noel Aspirin EC Aspirin [...] Furosemide 40 MG 40 MG 40 MG [facility] No 1{table QD Noel Aspirin EC Aspirin [...] MEQ 10 MEQ t} 10 10 MEQ carvedilol carvedilol No carvedilol [place] 6.25 mg 6.25 mg 6.25 mg da tablet TAKE tablet TAKE tablet Medical 1 TABLET BY 1 TABLET BY TAKE 1 Group MOUTH TWICE MOUTH TWICE TABLET BY DAILY DAILY MOUTH TWICE DAILY Glimepiride Glimepiride No Glimepirid 2 [...] 49/51mg 49/51mg t} 49/51mg 49/51mg 49/51mg 49/51mg clindamycin clindamycin No clindamyci [place] HCl 150 [...] powder for powder for inhalation inhalation inhalation Klor-Con 10 Klor-Con 10 2020- No Kilo 1 tablet Common 05-23 Hernandez Spirit 00:00 - [facility] :00 [facility] Vital Signs Vital Name Observation Time Observation Value Comments Source Systolic blood 2022-10-03 14:55:00 90 mm[Hg] [facility] Diastolic blood 2022-10-03 14:55:00 63 mm[Hg] Unive rsity of [facility] Heart rate 2022-10-03 14:55:00 63 /min [facility]i ty [facility] [place] [facility] Body height 2022-10-03 14:55:00 154.9 cm [facility] [place] [facility] Body weight 2022-10-03 14:55:00 116.166 kg [facility] [place] [facility] BMI 2022-10-03 14:55:00 48.39 kg/m2 Universi ty [facility] [place] [facility] Oxygen saturation in 2022-10-03 14:55:00 96 /min University of Arterial blood by [place] Medi merlyn Pulse oximetry Branch Systolic blood 2022-10-02 14:43:00 92 mm[Hg] Univer sity of pressure [place] [facility] Diastolic blood 2022-10-02 14:43:00 61 mm[Hg] Unive rsity of pressure [place] [facility] Heart rate 2022-10-02 14:43:00 71 /min [facility]i ty [facility] [place] [facility] Respiratory rate 2022-10-02 14:39:00 19 /min Univ ersity of [place] [facility] Body height 2022-10-02 14:39:00 154.9 cm Universi ty [facility] [place] [facility] Body weight 2022-10-02 14:39:00 115.486 kg [facility] [place] [facility] BMI 2022-10-02 14:39:00 48.11 kg/m2 [facility] ty [facility] [place] [facility] Oxygen saturation in 2022-10-02 14:39:00 94 /min University of Arterial blood by [facility] merlyn Pulse oximetry Branch Systolic blood 2022-09-27 19:22:00 111 mm[Hg] Univer sity of pressure [place] [facility] Diastolic blood 2022-09-27 19:22:00 72 mm[Hg] Unive rsity of pressure [place] [facility] Heart rate 2022-09-27 19:22:00 70 /min [facility]i ty [facility] [place] [facility] Respiratory rate 2022-09-27 19:22:00 18 /min Univ ersity of [place] [facility] Body height 2022-09-27 19:22:00 154.9 cm [facility] [place] [facility] Body weight 2022-09-27 19:22:00 115.35 kg [facility] [place] [facility] BMI 2022-09-27 19:22:00 48.05 kg/m2 [facility] [place] [facility] Oxygen saturation in 2022-09-27 19:22:00 99 /min University of Arterial blood by [facility] Pulse oximetry Branch Systolic blood 2022-08-19 15:57:00 90 mm[Hg] Univer sity of pressure [place] [facility] Diastolic blood 2022-08-19 15:57:00 63 mm[Hg] Unive rsity of pressure [place] [facility] Heart rate 2022-08-19 15:57:00 67 /min Universi ty [facility] [place] [facility] [place] Body height 2022-08-19 15:57:00 154.9 cm [facility]i ty [facility] [place] [facility] Body weight 2022-08-19 15:57:00 113.898 kg [facility] [place] [facility] BMI 2022-08-19 15:57:00 47.44 kg/m2 [facility] [place] [facility] Oxygen saturation in 2022-08-19 15:57:00 96 /min University of Arterial blood by [facility] Pulse oximetry Branch Systolic blood 2022-07-08 19:02:00 95 mm[Hg] Univer sity of pressure [place] [facility] Diastolic blood 2022-07-08 19:02:00 54 mm[Hg] Unive rsity of pressure [place] [facility] [place] Heart rate 2022-07-08 19:02:00 62 /min Universi ty [facility] [place] [facility] [place] Body temperature 2022-07-08 19:02:00 36.33 Marya Univ ersity [facility] [place] [facility] Respiratory rate 2022-07-08 19:02:00 18 /min Univ ersity [facility] [place] [facility] [place] Body height 2022-07-08 19:02:00 154.9 cm [facility]i ty [facility] [place] [facility] Body weight 2022-07-08 19:02:00 115.713 kg [facility] [place] [facility] BMI 2022-07-08 19:02:00 48.20 kg/m2 [facility] [place] [facility] Oxygen saturation in 2022-07-08 19:02:00 99 /min University of Arterial blood by [facility] Pulse oximetry Branch height 2022-05-30 13:40:00 61 [in_i] Common S [facility] weight 2022-05-30 13:40:00 249.4 [lb_av] Common [facility] temperature 2022-05-30 13:40:00 97.4 [degF] Common [facility] bmi 2022-05-30 13:40:00 47.12 kg/m2 [facility] oximetry 2022-05-30 13:40:00 96 % [facility] respiratory rate 2022-05-30 13:40:00 17 /min Comm on [facility] blood pressure 2022-05-30 13:40:00 119 mm[Hg] Common [facility] - systolic [facility] blood pressure 2022-05-30 13:40:00 68 mm[Hg] Common [facility] - diastolic [facility] height 2022-05-30 14:00:00 61 [in_i] [facility] weight 2022-05-30 14:00:00 249.4 [lb_av] [facility] temperature 2022-05-30 14:00:00 97.4 [degF] [facility] bmi 2022-05-30 14:00:00 47.12 kg/m2 [facility] oximetry 2022-05-30 14:00:00 96 % [facility] respiratory rate 2022-05-30 14:00:00 17 /min Comm on [facility] blood pressure 2022-05-30 14:00:00 119 mm[Hg] Common [facility] systolic [facility] blood pressure 2022-05-30 14:00:00 68 mm[Hg] Common [facility] diastolic [facility] Systolic blood 2022-04-10 17:14:00 109 mm[Hg] Univer sity of pressure [facility] Diastolic blood 2022-04-10 17:14:00 71 mm[Hg] Unive rsity of [facility] Heart rate 2022-04-10 17:14:00 65 /min [facility] Respiratory rate 2022-04-10 17:14:00 19 /min Univ ersity [facility] Body height 2022-04-10 17:14:00 154.9 cm [facility] Body weight 2022-04-10 17:14:00 115.123 kg Universi ty [facility] BMI 2022-04-10 17:14:00 47.96 kg/m2 [facility] Oxygen saturation in 2022-04-10 17:14:00 97 /min [facility] Arterial blood by [facility] Pulse oximetry Branch Systolic blood 2022-02-25 18:19:00 114 mm[Hg] Univer sity of pressure [facility] Diastolic blood 2022-02-25 18:19:00 74 mm[Hg] Unive rsity of [facility] Heart rate 2022-02-25 18:19:00 79 /min Universi [facility] Body temperature 2022-02-25 18:19:00 36.17 Marya [facility] 2022-02-25 18:19:00 16 /min [facility] weight 2022-02-25 18:19:00 114.443 [facility] BMI 2022-02-25 18:19:00 47.67 kg/m2 Universi [facility] height 2022-01-24 11:00:00 61 [in_i] [facility] weight 2022-01-24 11:00:00 250 [lb_av] [facility] temperature 2022-01-24 11:00:00 97.3 [degF] [facility] bmi 2022-01-24 11:00:00 47.23 kg/m2 [facility] oximetry 2022-01-24 11:00:00 95 % [facility] respiratory rate 2022-01-24 11:00:00 18 /min Comm on [facility] blood pressure 2022-01-24 11:00:00 100 mm[Hg] Common [facility] - systolic [facility] blood pressure 2022-01-24 11:00:00 59 mm[Hg] Common [facility] - diastolic [facility] height 2021-12-04 10:20:00 [facility] weight 2021-12-04 10:20:00 260 [lb_av] Common S pirit [facility] temperature 2021-12-04 10:20:00 97.3 [degF] Common S pirit [facility] bmi 2021-12-04 10:20:00 49.12 kg/m2 Common S pirit [facility] oximetry 2021-12-04 10:20:00 96 % Common S pirit [facility] respiratory rate 2021-12-04 10:20:00 18 /min Comm on [facility] blood pressure 2021-12-04 10:20:00 110 mm[Hg] Common [facility] - systolic [facility] blood pressure 2021-12-04 10:20:00 65 mm[Hg] Common [facility] - diastolic [facility] height 2021-09-04 09:40:00 62.25 [in_i] [facility] weight 2021-09-04 09:40:00 261.4 [lb_av] Common [facility] temperature 2021-09-04 09:40:00 98.1 [degF] [facility] bmi 2021-09-04 09:40:00 47.42 kg/m2 Common S pirit [facility] oximetry 2021-09-04 09:40:00 100 % [facility] 2021-09-04 09:40:00 16 /min Comm on [facility] blood pressure 2021-09-04 09:40:00 110 mm[Hg] Common [facility] - systolic [facility] blood pressure 2021-09-04 09:40:00 84 mm[Hg] Common [facility] - diastolic [facility] height 2021-06-05 10:00:00 62.25 [in_i] Common S pirit [facility] weight 2021-06-05 10:00:00 259 [lb_av] Common S pirit [facility] temperature 2021-06-05 10:00:00 98.1 [degF] Common S pirit [facility] bmi 2021-06-05 10:00:00 46.99 kg/m2 [facility] oximetry 2021-06-05 10:00:00 96 % [facility] respiratory rate 2021-06-05 10:00:00 18 /min Comm on [facility] blood pressure 2021-06-05 10:00:00 96 mm[Hg] Common [facility] - systolic [facility] blood pressure 2021-06-05 10:00:00 50 mm[Hg] Common [facility] - diastolic [facility] height 2021-06-05 10:20:00 62.25 [in_i] Common [facility] weight 2021-06-05 10:20:00 259 [lb_av] [facility] temperature 2021-06-05 10:20:00 98.1 [degF] Common S [facility] bmi 2021-06-05 10:20:00 46.99 kg/m2 [facility] oximetry 2021-06-05 10:20:00 96 % Common [facility] blood pressure 2021-06-05 10:20:00 96 mm[Hg] Common [facility] - systolic [facility] blood pressure 2021-06-05 10:20:00 50 mm[Hg] Common Spirit - diastolic [facility] height 2021-05-14 10:00:00 62.25 [in_i] Common S pirit [facility] weight 2021-05-14 10:00:00 269 [lb_av] Common S [facility] bmi 2021-05-14 10:00:00 48.8 kg/m2 [facility] height 2021-03-26 10:00:00 62.25 [in_i] Common S pirit [facility] weight 2021-03-26 10:00:00 261 [lb_av] Common S pirit [facility] temperature 2021-03-26 10:00:00 97.1 [degF] Common [facility] bmi 2021-03-26 10:00:00 47.35 kg/m2 [facility] oximetry 2021-03-26 10:00:00 96 % [facility] respiratory rate 2021-03-26 10:00:00 16 /min Comm on [facility] blood pressure 2021-03-26 10:00:00 104 mm[Hg] Common [facility] - systolic [facility] blood pressure 2021-03-26 10:00:00 54 mm[Hg] Common [facility] - diastolic [facility] height 2021-02-26 08:40:00 62.25 [in_i] [facility] weight 2021-02-26 08:40:00 265 [lb_av] [facility] temperature 2021-02-26 08:40:00 97.2 [degF] Common [facility] bmi 2021-02-26 08:40:00 48.08 kg/m2 [facility] oximetry 2021-02-26 08:40:00 97 % [facility] respiratory rate 2021-02-26 08:40:00 16 /min Comm on [facility] blood pressure 2021-02-26 08:40:00 111 mm[Hg] Common [facility] - systolic [facility] blood pressure 2021-02-26 08:40:00 60 mm[Hg] Common [facility] - diastolic [facility] BP Diastolic 2020-09-14 00:00:00 68 mm[Hg] [facility] Height 2020-09-14 00:00:00 61 [in_i] [facility] BMI (Body Mass 2020-09-14 00:00:00 48 kg/m2 [facility] BP Systolic 2020-09-14 00:00:00 102 mm[Hg] [facility] Body Weight 2020-09-14 00:00:00 254.2 [lb_av] [facility] BP Diastolic 2020-05-31 00:00:00 79 mm[Hg] [facility] Height 2020-05-31 00:00:00 61 [in_i] [facility] BMI (Body Mass 2020-05-31 00:00:00 49.3 kg/m2 [facility]) Group BP Systolic 2020-05-31 00:00:00 116 mm[Hg] [facility] Body Weight 2020-05-31 00:00:00 260.7 [lb_av] [facility] BP Diastolic 2020-03-07 00:00:00 66 mm[Hg] [facility] Height 2020-03-07 00:00:00 61 [in_i] [facility] BMI (Body Mass 2020-03-07 00:00:00 49.4 kg/m2 [facility] Index) Group BP Systolic 2020-03-07 00:00:00 115 mm[Hg] [facility] Body Weight 2020-03-07 00:00:00 261.5 [lb_av] [facility] Systolic (mm Hg) 2021-04-23 16:18:00 Andres rial [facility] Diastolic (mm Hg) 2021-04-23 16:18:00 Mem orial [facility] Heart Rate 2021-04-23 16:18:00 [facility] [place] Respitory Rate 2021-04-23 16:18:00 Memori al [facility] Height 2021-04-23 16:18:00 154.94 cm [facility] Weight 2021-04-23 16:18:00 [facility] BMI Calculated 2021-04-23 16:18:00 Memori al [place] Systolic (mm Hg) 2021-03-22 18:19:00 Andres rial [place] Diastolic (mm Hg) 2021-03-22 18:19:00 Mem orial [facility] Heart Rate 2021-03-22 18:19:00 [facility] Respitory Rate 2021-03-22 18:19:00 Memori al [place] Height 2021-03-22 18:19:00 154.94 cm [facility] Weight 2021-03-22 18:19:00 Jett [place] BMI Calculated 2021-03-22 18:19:00 Shira Ojedaann Systolic (mm Hg) 2021-02-21 18:59:00 Andres Villaseñor Diastolic (mm Hg) 2021-02-21 18:59:00 Maricel Villaseñor Heart Rate 2021-02-21 18:59:00 Jett [place] Respitory Rate 2021-02-21 18:59:00 Shira victoria [facility] Height 2021-02-21 18:59:00 154.94 cm Jett Moranann Weight 2021-02-21 18:59:00 Jett [place] BMI Calculated 2021-02-21 18:59:00 Shira Morelos Procedures Procedure Date / Time Performing Clinician Source Performed PATIENT AGREEMENTS AND 2022-10-10 05:01:00 Doctor Unassigned, [facility] CONTRACTS [facility] REFERRAL- REQUEST/RESPONSE 2022-09-24 05:01:00 Doctor Eliza , [facility] PATIENT FINANCIAL 2022-08-19 15:42:43 Doctor Unassigned, [facility] POLICY [facility] SLEEP STUDY DATA REPORT 2022-07-23 06:01:00 Doctor Unassigned, [facility] ASSIGNMENT OF BENEFITS 2022-07-08 18:55:01 Doctor Unassigned, [facility] EXTERNAL FIT DNA 2022-06-21 10:34:00 Doctor Unajaleesaigned, [facility] PULMONARY FUNCTION REPORT 2022-05-24 06:01:00 Doctor Unarishabh, [facility] EXTERNAL PROVIDER - ADC 2022-03-05 05:01:00 Doctor Unasskaran, [facility] REFERRAL [facility] ASSIGNMENT OF BENEFITS 2022-01-10 15:14:06 Doctor Unassigned, [facility] MAGNESIUM 2021-11-28 15:33:00 Araceli [facility] BASIC METABOLIC PANEL (NA, 2021-11-28 15:33:00 Miley [place], [facility] K, CL, CO2, GLUCOSE, BUN, [facility] CREATININE, [place]) N-TERMINAL PRO-BNP 2021-11-28 15:33:00 Araceli [facility] Automatic Defibrillator [facility] Cholecystectomy [facility] Defibrillation using [facility] automated external cardiac defibrillator Encounters Start End Encounter Admission Attending Care Care Encounter Source Date/Time Date/Time Type Type Clinicians Facility Department ID 2023-03-11 Inpatient [facility] [id number] [facility] 07:00:00 [id number] 2023-02-28 Inpatient Elective Meena, [facility] [id number] [facility] 07:00:00 [place] [id number] 2023-01-21 Outpatient [place], STLMLC STLMLC [id number] Common 07:22:00 Aissat[place] [id number] [facility] 2023-01-15 Outpatient [place], STLMLC STLMLC [id number] Common 09:22:00 Aissatou [id number] [facility] 2022-12-05 Outpatient [place], STLMLC STLMLC [id number] Common 13:29:00 Aissatou [id number] [facility] 2022-10-07 Outpatient [place], STLMLC STLMLC [id number] Common 08:14:00 Aissatou 05254 [facility] 2022-09-18 Outpatient [place], STLMLC STLMLC [id number] Common 11:42:00 Aissatou 89719 [facility] 2022-09-16 Outpatient [place], STLMLC STLMLC [id number] Common 15:44:00 Aissatou 59969 [facility] 2022-06-18 Outpatient [place], STLMLC STLMLC [id number] Common 12:01:00 Aissatou 82742 [facility] 2022-05-28 Outpatient [place], STLMLC STLMLC [id number] Common 08:32:00 Aissatou 66886 [facility] 2021-11-30 Outpatient [place], STLMLC STLMLC [id number] Common 07:54:00 Aissatou [facility] 2021-09-05 Outpatient [place], STLMLC STLMLC [id number] Common 10:56:01 Aissatou [facility] 2021-06-13 Outpatient [place], STLMLC STLMLC [id number] Common 14:38:32 Aissatou [facility] 2021-06-13 Outpatient [place], STLMLC STLMLC [id number] Common 14:35:38 Aissatou [facility] 2021-06-13 Outpatient [place], STLMLC STLMLC [id number] Common 14:01:32 Aissatou [facility] 2021-06-13 Outpatient [place], STLMLC STLMLC [id number] Common 13:44:49 Aissatou 84941 [facility] 2021-06-13 Outpatient [place], STLMLC STLMLC [id number] Common 13:27:14 Aissatou 79220 [facility] 2021-06-13 Outpatient [place], STLMLC STLMLC [id number] Common 12:57:09 Aissatou 45554 [facility] 2021-06-13 Outpatient [place], STLMLC STLMLC [id number] Common 12:25:50 Aissatou 62777 [facility] 2021-06-13 Outpatient [place], STLMLC STLMLC [id number] Common 11:42:20 Aleah 34423 [facility] 2021-06-13 Outpatient [place], STLMLC STLMLC [id number] Common 11:39:36 Aleah 79054 [facility] 2021-06-13 Outpatient [place], STLMLC STLMLC [id number] Common 11:24:42 Aleah 19344 [facility] 2021-06-13 Outpatient [place], STLMLC STLMLC [id number] Common 11:08:27 Aleah 36682 [facility] 2023-01-062023-01-06 Outpatient R [facility] [id number] Univers 10:00:00 10:00:00 ity of [facility] 2022-12-23 2022-12-23 Outpatient R TAMIKO, [facility] [id number] Univers 13:40:00 13:40:00 VAUGHN [facility] 2022-12-09 2022-12-09 Outpatient R NIKOS, [facility] [id number] Univers 13:40:00 13:40:00 LOHEIDI [facility] 2022-11-12 2022-11-12 Outpatient R TOYA, [facility] [id number] Univers 09:30:00 09:30:00 SOPHIE [facility] 2022-11-12 2022-11-12 Refill Kaela CHILDERS 1.2.840.114 10 [id number] Univers 00:00:00 00:00:00 [place], PEDIATRIC 350.1.13.10 ity of [place] [id number] [facility] PRIMARY 059 [facility] 2022-10-10 2022-10-10 Office Papa INIRVING 1.2.840.114 [id number] Univers 11:15:00 11:15:00 Visit Mireya SPECIALTY 350.1.13.10 ity of [place] C[place] AT [id number] [facility] 253 [facility] 2022-10-10 2022-10-10 Outpatient R PAPA [facility] [id number] Univers 11:15:00 11:13:57 MIREYA ity [facility] 2022-10-10 2022-10-10 Orders Doctor DEL TORO 1.2.840.114 [id number] Univers 00:00:00 00:00:00 Only Unassigned, BROOK 350.1.13.10 ity of [facility] 4.2.7.2.686 Arnulfo as [phone] [facility] [address] 2022-10-03 2022-10-03 Office Ju INIRVING 1.2.840.114 [id number] Univers 09:40:00 10:16:13 Visit Kadi SANTANA 350.1.13.10 ity of opal [place] [phone] Oh dicjulien NAL 059 [facility] 2022-10-03 2022-10-03 Outpatient R ALYSSA DODD [facility] [id number] Univers 09:40:00 10:16:13 JUALYSSA [facility] 2022-10-02 2022-10-02 Office James [facility] 1.2.514.858 [id number] 36969 [facility] 11:30:00 12:00:00 Visit Sigifredo SANTANA 350.1.13.10 ity of [place] [id number] [place] 989325 [facility] 2022-10-02 2022-10-02 Outpatient R SIGIFREDO RAMIREZ [facility] [id number] Univers 11:30:00 11:30:00 SIGIFREDO RAMIREZ [facility] 2022-10-01 2022-10-01 Telephone ItUanbai- [facility] 1.2.840.11 4 [id number] Univers 00:00:00 00:00:00 [place], Y HEALTH 350.1.13.10 ity of [facility] CLINICS [place] [id number] [address] 2022-09-30 2022-09-30 Telephone Rosangela SOLIS 1.2.840.114 [id number] Univers 00:00:00 00:00:00 , Marychuy ORTIZ 350.1.13.10 ity of [place] [id number] [address] 2022-09-30 2022-09-30 Telephone Iturrizaga- UNIVERSIT 1.2.840.11 4 [id number] Univers 00:00:00 00:00:00 [place], Y HEALTH 350.1.13.10 ity of [place] CLINICS [place].2.7.[place] [id number] [address] 2022-09-30 2022-09-30 Telephone [facility] 1.2.840.11 4 [id number] Univers 00:00:00 00:00:00 Derek Segura 350.1.13.10 ity of [place] [facility] [place].2.7.2.[place] [id number] [address] 2022-09-27 2022-09-27 Fat Purification Worker Lab, Ang - [facility] 1.2.840.1 14 [id number] Univers 15:30:00 15:45:00 Visit Andrews Perla [facility] 350.1.13. 10 ity of [place] 4.2.7.2.686 Arnulfo as BENJAMIN?BLEA [id number] [address] MEDICAL OFFICE [facility] 2022-09-27 2022-09-27 Outpatient R PANANDREWS [facility] [id number] Univers 14:40:00 15:20:20 [facility]REWS [facility] 2022-09-27 2022-09-27 Office [facility] 1.2.840.114 [id number] Univers 14:40:00 15:20:20 Visit [facility] 350.1.13.10 ity of [place] 4.2.7.2.686 Arnulfo as BENJAMIN?BLEA [id number] [address] MEDICAL OFFICE [facility] 2022-09-24 2022-09-24 Orders Doctor ALVERTO 1.2.840.114 [id number] Univers 00:00:00 00:00:00 Only Unassigned, BROOK 350.1.13.10 ity of [facility] 4.2.7.2.686 Arn[place] as [id number] [address] 2022-09-23 2022-09-23 [facility] 1.2.840.114 [id number] Univers 00:00:00 00:00:00 [facility] 350.1.13.10 ity of [facility] 4.2.7.2.686 Arnulfo as BENJAMIN?BLEA [id number] [address] MEDICAL OFFICE BUILDING 2022-09-11 2022-09-11 Telephone [facility] 1.2.840.114 [id number] Univers 00:00:00 00:00:00 [place], HEALTH 350.1.13.10 ity of [place].2.[place] HERNANDE[place] [id number] [facility] [address] OFFICE BUILDING 2022-08-30 2022-08-30 Telephone Rosangela SOLIS 1.2.840.114 [id number] Univers 00:00:00 00:00:00 , Marychuy Fishman ORTIZ 350.1.13.10 ity of [place].2.7.2.[place] [id number] [facility] [address] 2022-08-28 2022-08-28 Outpatient SOURAV MEENA [facility] [id number] [place] 09:20:00 09:20:00 [id number] [facility] 2022-08-19 2022-08-19 Office [facility] 1.2.502.882 [id number] Univers 11:30:00 11:30:00 Visit Afaq [place] 350.1.13.10 i ty of [facility] 4.2.7.2.[place] [id number] Oh dical NAL 059 [address] [facility] 2022-08-19 2022-08-19 Outpatient R [facility] [id number] Univers 11:30:00 11:14:01 AFAQ ity of [facility] 2022-08-19 2022-08-19 Orders Doctor ALVERTO 1.2.840.114 [id number] Univers 00:00:00 00:00:00 Only Unassigned, BROOK 350.1.13.10 ity of [facility] 4.2.7.2.686 [place] as [id number] [facility] [address] 2022-08-18 2022-08-18 Refill Kaela CHILDERS 1.2.840.114 10 [id number] Univers 00:00:00 00:00:00 [place], PEDIATRIC 350.1.13.10 ity of [place] [id number] [address] 2022-08-07 2022-08-07 Outpatient R SIGIFREDO RAMIREZ [facility] [id number] Univers 09:30:00 09:30:00 [facility]REDO [facility] 2022-08-03 2022-08-03 Refill Kaela CHILDERS 1.2.840.114 10 [id number] Univers 00:00:00 00:00:00 [place], PEDIATRIC 350.1.13.10 ity of [place] [id number] [address] 2022-07-23 2022-07-23 Fat Purification Worker 1, [facility] Sleep Lab Bed [facility] 1. 2.840.114 [id number] Univers 20:00:00 22:30:00 Visit Sigifredo Ramirez 350.1.13. 10 ity of [place].7.2.[place] C[place] [id number] [place] [address] Branch 2022-07-23 2022-07-23 Outpatient R NENA RAMIREZAZRadha [facility] [id number] Univers 20:00:00 20:00:00 SIGIFREDO RAMIREZ [facility] 2022-07-23 2022-07-23 Orders Doctor ALVERTO 1.2.840.114 [id number] Univers 00:00:00 00:00:00 Only Unassigned, BROOK 350.1.13.10 ity of [facility] 4.2.7.2.686 [place] as [id number] [place] [address] Branch 2022-07-15 2022-07-15 Telephone Kaela CHILDERS 1.2.840.114 [id number] Univers 00:00:00 00:00:00 [place] PEDIATRIC 350.1.13.10 ity of [place] [id number] [address] 2022-07-09 2022-07-09 Letter Feliberto, [facility] 1.2.840.114 [id number] Univers 00:00:00 00:00:00 (Out) General HEALTH 350.1.13.10 it y of Cardiology CLEAR 4.2.7.2.686 T kaleigh HERNANDEZ [id number] [facility] MEDICAL 9 Branch OFFICE BUILDING 2022-07-08 2022-07-08 Office Itsantiago CHILDERS 1.2.840.114 [id number] Univers 13:00:00 13:30:00 Visit [place], PEDIATRIC 350.1.13.10 ity of [facility] 4.2.[place].2.[place] [id number] [facility] PRIMARY 9 Branch CARE CLINIC 2022-07-08 2022-07-08 Outpatient [facility] [id number] Univers 13:00:00 13:00:00 [place], ity of [facility] 2022-07-08 2022-07-08 Orders Doctor ALVERTO 1.2.840.114 [id number] Univers 00:00:00 00:00:00 Only Unassigned, BROOK 350.1.13.10 ity of [facility] 4.2.7.2.686 Arnulfo as [id number] [facility] [address]9 [address] 2022-07-08 2022-07-08 Telephone [facility]- OMAR 1.2.840.11 4 [id number] Univers 00:00:00 00:00:00 [place] Y HEALTH 350.1.13.10 ity of [place] CLINICS 4.2.7.2.[place] [id number] [facility] [address] 2022-06-06 2022-06-06 (TEL) STLMLC STLMLC [id number] Co mmon 00:00:00 00:00:00 [facility] 2022-06-05 2022-06-05 (TEL) STLMLC STLMLC [id number] Co mmon 00:00:00 00:00:00 [facility] 2022-05-30 2022-05-30 OFFICE STLMLC STLMLC [id number] Co mmon 00:00:00 00:00:00 VISIT Elieser [facility] PT - CHI LEVEL 4 [facility] 2022-05-30 2022-05-30 SUB ANNUAL STLMLC STLMLC [id number] Common 00:00:00 00:00:00 MCR Spirit WELLNESS - CHI VISIT [facility] 2022-05-30 2022-05-30 Telephone IturrBe my eyes- UNIVERSIT 1.2.840.11 4 [id number] Univers 00:00:00 00:00:00 [place], Y HEALTH 350.1.13.10 ity of [place] CLINICS 4.2.7.2.[place] [id number] [facility] [address] 2022-05-30 2022-05-30 Refill Iturrizaga- UNIVERSIT 1.2.840.114 [id number] Univers 00:00:00 00:00:00 [place], Y HEALTH 350.1.13.10 ity of [place] CLINICS 4.2.7.2.[place] [id number] [facility] [address] 2022-05-29 2022-05-29 Telephone ItCerberus Co.adrian- ALVARADO 1.2.840.114 [id number] Univers 00:00:00 00:00:00 [place], PEDIATRIC 350.1.13.10 ity of [place] [id number] [facility] PRIMARY 059 [address] CARE CLINIC 2022-05-24 2022-05-24 Fat Purification Worker Testing, [facility] Pulmonary Func tion [facility] 1.2.840.114 [id number] Univers 09:30:00 11:31:11 Visit Miguel Ford [facility] 350.1.13. 10 ity of CLINICS 4.2.7.2.[place] [id number] [facility] 083 [address] 2022-05-24 2022-05-24 Outpatient William FORD [facility] [id number] Univers 09:30:00 09:30:00 MIGUEL louie of [facility] 2022-05-24 2022-05-24 Orders Doctor ALVERTO 1.2.840.114 [id number] Univers 00:00:00 00:00:00 Only Unassigned, BROOK 350.1.13.10 ity of [facility] 4.2.7.2.686 Arnulfo as [id number] [facility] 009 [address] 2022-04-26 2022-04-26 [facility] [id number] Univers 09:30:00 09:30:00 jacy SEGURA [facility] 2022-04-10 2022-04-10 Office James [facility] 1.2.653.309 [id number] Univers 11:00:00 11:30:00 Visit Sigifredo SANTANA 350.1.13.10 ity [facility] [place].2.7.2.[place] [id number] [place] 989325 [facility] 2022-04-10 2022-04-10 Outpatient R JAMES [facility]3] [id number] Univers 11:00:00 11:00:00 SIGIFREDO RAMIREZ [facility] 2022-04-03 2022-04-03 Outpatient [facility] [id number] Univers 08:17:34 23:59:00 jacy SEGURA [facility] 2022-03-21 2022-03-21 Telephone [facility] 1.2.840.11 [id number] Univers 00:00:00 00:00:00 [place] [facility] 350.1.13.10 ity [facility] [place].2.7.2.[place] [id number] [facility] [address] 2022-03-19 2022-03-19 Outpatient [facility] [id number] Univers 09:00:00 23:59:00 jacy SEGURA [facility] 2022-03-06 2022-03-06 [facility] [id number] Univers 14:00:00 14:00:00 SIGIFREDO RAMIREZ [facility] 2022-03-05 2022-03-05 Orders Doctor DEL TORO 1.2.840.114 [id number] Univers 00:00:00 00:00:00 Only Unassigned, BROOK 350.1.13.[address] [facility] 4.2.7.2.686 [place] [id number] [place] [address] Branch 2022-03-04 2022-03-04 (TEL) STLMLC STLMLC [id number] Co mmon 00:00:00 00:00:00 [facility] 2022-03-04 2022-03-04 (TEL) STLMLC STLMLC [id number] Co mmon 00:00:00 00:00:00 [facility] 2022-02-25 2022-02-25 Outpatient R RODRIGO- [facility] [id number] [facility] 13:30:00 13:53:55 COLTON, ity of [facility] 2022-02-25 2022-02-25 Office Kaela CHILDERS 1.2.840.114 [id number] [facility] 13:30:00 13:53:55 Visit [place] PEDIATRIC 350.1.13.10 ity of [place] [id number] [address] 2022-02-25 2022-02-25 Telephone Kaela CHILDERS 1.2.840.114 [id number] Univers 00:00:00 00:00:00 [place] PEDIATRIC 350.1.13.10 ity of [place] [id number] [address] 2022-02-13 2022-02-13 (TEL) STLMLC STLMLC [id number] Co mmon 00:00:00 00:00:00 [facility] 2022-02-06 2022-02-06 (TEL) STLMLC STLMLC [id number] Co mmon 00:00:00 00:00:00 [facility] 2022-01-24 2022-01-24 OFFICE STLMLC STLMLC [id number] Co mmon 00:00:00 00:00:[address] [facility] LEVEL 4 [facility] 2022-01-23 2022-01-23 (TEL) STLMLC STLMLC [id number] Co mmon 00:00:00 00:00:00 [facility] 2022-01-11 2022-01-11 (TEL) STLMLC STLMLC [id number] Co mmon 00:00:00 00:00:00 [facility] 2022-01-10 2022-01-10 Outpatient R RADIOLOGY [facility] [id number] Univers 10:15:43 23:59:00 ity of [facility] 2022-01-10 2022-01-10 Hospital Radiology [facility] 1.2.840.114 [id number] Univers 10:15:43 23:59:00 Encounter JONIMEENA 350.1.13.10 ity of [place].2.[place] [id number] [facility] [address] 2022-01-10 2022-01-10 Fat Purification Worker Arlette, Adc Lab Main [facility] 1.2.8 40.114 [id number] Univers 11:15:00 11:30:00 Visit Milo Bennett 350.1.13.10 ity of [facility] 4.2.7.2.[place] [id number] Oh dical NAL 353 [address] BUILDING 2022-01-10 2022-01-10 Orders Doctor ALVERTO 1.2.840.114 [id number] Univers 00:00:00 00:00:00 Only Unassigned, BROOK 350.1.13.10 ity of [facility] 4.2.7.2.686 Arnulfo as [id number] [facility] 009 Branch 2022-01-01 2022-01-01 Telephone [facility] 1.2.840.114 [id number] Univers 00:00:00 00:00:00 [facility] 350.1.13.10 ity of [place]2.[place].2.[place] [id number] [facility] 414 [address] OFFICE BUILDING 2021-12-19 2021-12-19 Outpatient R RADIOLOGY [facility] RAD [id number] Univers 10:20:00 10:20:00 ity of [facility] 2021-12-04 2021-12-04 OFFICE STLMLC STLMLC [id number] Co mmon 00:00:00 00:00:00 VISIT Spirit ESTAB PT - CHI LEVEL 4 [facility] 2021-12-04 2021-12-04 Telephone Kaela NELSON 1.2.840.11 4 [id number] Univers 00:00:00 00:00:00 [place] HEALTH 350.1.13.10 ity of [place] [facility] 4.2.7.2.[place] [id number] [facility] [address] 2021-11-28 2021-11-28 Fat Purification Worker Arlette, Adc Lab Main [facility] 1.2.8 40.114 [id number] Univers 10:00:00 10:15:00 Visit Wood Roach [place] 3 50.1.13.10 ity of [place].2.[place] [id number] [address] 2021-11-28 2021-11-28 Outpatient R KAELA [facility] [id number] Univers 10:00:00 10:00:00 COLTON ity of [facility] 2021-11-27 2021-11-27 Telephone Kaela CHILDERS 1.2.840.114 [id number] Univers 00:00:00 00:00:00 [place], PEDIATRIC 350.1.13.10 ity of [place]2.[place] [phone] [facility] PRIMARY 0[address] Branch [facility] 2021-10-31 2021-10-31 (TEL) [facility] [id number] Co mmon 00:00:00 00:00:00 [facility] 2021-10-19 2021-10-19 Outpatient William ANGEL [facility] [id number] Univers 11:00:00 11:00:00 MIREYA ity [facility] 2021-10-18 2021-10-18 Telephone Kaela CHILDERS 1.2.840.114 [id number] Univers 00:00:00 00:00:00 [place], PEDIATRIC 350.1.13.10 ity of [place] [id number] [address] 2021-10-18 2021-10-18 Telephone Kaela CHILDERS 1.2.840.114 [id number] Univers 00:00:00 00:00:00 [place], PEDIATRIC 350.1.13.10 ity of [place] [id number] [address] 2021-09-04 2021-09-04 Outpatient R ABEBA [facility] [id number] Univers 14:00:00 17:37:46 FE ity of [facility] 2021-09-04 2021-09-04 Office Abeba [facility] 1.2.840.114 [id number] Univers 14:00:00 17:37:46 Visit Fe SPECIALTY 350.1.13.10 ity of C[place].7.2.[place] CENTER AT [id number] Oh dic[address] 2021-09-04 2021-09-04 Orders Doctor ALVERTO 1.2.840.114 [id number] Univers 00:00:00 00:00:00 Only Unassigned, BROOK 350.1.13.10 ity of [facility] 4.2.7.2.686 Arnulfo as [id number] [address] 2021-09-04 2021-09-[address] [facility] [id number] Co mmon 00:00:00 00:00:00 VISIT Elieser COPE PT - CHI LEVEL 4 [facility] 2021-09-03 2021-09-03 Telephone Kaela CHILDERS 1.2.840.114 [id number] Univers 00:00:00 00:00:00 [place], PEDIATRIC 350.1.13.10 ity of [place] [id number] [address] 2021-08-31 2021-08-31 [facility] 1.2.840.114 [id number] Univers 00:00:00 00:00:00 Colton [facility] 350.1.13.10 ity of [place] [id number] [address] OFFICE BUILDING 2021-08-29 2021-08-29 Outpatient R SARAI, [facility] [id number] Univers 09:00:00 10:28:37 MANDI [facility] 2021-08-29 2021-08-29 Nurse Nurse, Alexander CHILDERS 1.2.84 0.114 [id number] Univers 09:00:00 09:20:00 Visit Unknown, Attending PEDIATRIC 350.1.13. 10 ity of [place] [id number] [facility] 314 [facility] 2021-08-29 2021-08-29 Outpatient R DANYELLE, [facility] [id number] Univers 09:00:00 09:00:00 [facility] 2021-08-24 2021-08-24 Outpatient [facility] [id number] Univers 16:30:00 16:50:59 COLTON [facility] 2021-08-24 2021-08-24 Office Kaela CHILDERS 1.2.840.114 [id number] Univers 16:30:00 16:50:59 Visit [place], PEDIATRIC 350.1.13.10 ity of [place] [id number] [facility] 059 [facility] 2021-07-30 2021-07-30 (TEL) STLMLC STLMLC [id number] Co mmon 00:00:00 00:00:00 [facility] 2021-07-24 2021-07-24 Ambulatory nullFlavo MNA [id number] Memoria 16:30:00 16:30:00 Pre-Reg r Neurology 05 l Isael Villaseñor 2021-07-24 2021-07-24 Outpatient ARIANNEIE APPLE [id number] Memoria 10:30:00 10:30:00 05 l Kasi 2021-07-24 2021-07-24 Outpatient JEANNIE Villa RAMON [id number] 10:30:00 10:30:00 Regulo Garcia 2021-07-12 2021-07-12 [id number] Univers 00:00:00 00:00:00 Sendil Suellen SANTANA [id number] [facility] [id number] [id number] Oh dicwv NAL 9 [facility] 2021-07-06 2021-07-06 [place] [id number] Univers 00:00:00 00:00:00 Sendil Suellen SANTANA [id number] ity of [facility] [id number] [id number] Oh dical NAL 9 [facility] 2021-07-05 2021-07-05 [facility] [id number] Univers 08:54:58 23:59:00 SENDIL ity of [facility] 2021-07-05 2021-07-05 [facility] [id number] Univers 08:54:58 23:59:00 Encounter Sendil Suellen SANTANA [id number] ity of [facility] [id number] [id number] Oh dicwv NAL 843 [facility] 2021-07-05 2021-07-05 [facility] [id number] Univers 09:00:00 09:00:00 SENDIL ity of [facility] 2021-06-25 2021-06-25 [place] [id number] Univers 00:00:00 00:00:00 Sendil Suellen SANTANA [id number] ity of [facility] [id number] [id number] Oh dicwv NAL 9 [facility] 2021-06-19 2021-06-19 [facility] [id number] Univers 14:00:00 14:49:22 Visit Joel SANTANA [id number] ity [facility] [id number] Saida COREA [id number] Oh dical [facility]9 [facility] 2021-06-19 2021-06-19 Outpatient R YUE, [facility] [id number] Univers 14:00:00 14:49:22 SENDIL ity [facility] 2021-06-19 2021-06-19 Outpatient R YUE, [facility] [id number] Univers 14:00:00 14:49:22 SENDIL ity [facility] 2021-06-19 2021-06-19 Orders Doctor DEL [place] [id number] Univers 00:00:00 00:00:00 Only Unassigned, BROOK [id number] [facility] [id number] Arnulfo ely [id number] [place] [id number] [address] 2021-06-05 2021-06-05 OFFICE STLMLC STLC [id number] Co mmon 00:00:00 00:00:00 VISIT Spirit ESTAB PT - CHI LEVEL 4 [facility] 2021-06-05 2021-06-05 SUB ANNUAL STLC STLC [id number] Common 00:00:00 00:00:00 MCR [facility] WELLNESS - CHI VISIT [facility] 2021-05-15 2021-05-15 Outpatient R [facility] [id number] Univers 17:00:00 17:00:00 ity of [facility] 2021-05-14 2021-05-14 (TEL) STLMLC STLMLC [id number] Co mmon 00:00:00 00:00:00 Spirit - [facility]I [facility] 2021-05-14 2021-05-14 OFFICE STLMLC STLMLC [id number] Co mmon 00:00:00 00:00:00 VISIT EST Spir it PT LEVEL 3 - CHI [facility] 2021-05-14 2021-05-14 (TEL) STLC STLMLC [id number] Co mmon 00:00:00 00:00:00 [facility] 2021-04-23 2021-04-24 Outpatient nullFlavo MNA [id number] Memoria 16:00:00 05:59:59 r Neurology 04 radha Villaseñor 2021-04-23 2021-04-23 Outpatient JEANNIE VillaSCHER [id number] 10:00:00 23:59:59 Regulo 04 Jose 2021-04-23 2021-04-23 Outpatient MHIE MHIE [id number] Memoria 10:00:00 10:00:00 04 radha Villaseñor 2021-03-30 2021-03-30 (TEL) STLMLC STLMLC [id number] Co mmon 00:00:00 00:00:00 [facility] 2021-03-26 2021-03-26 OFFICE STLMLC STLMLC [id number] Co mmon 00:00:00 00:00:[address] [facility] LEVEL 4 [facility] 2021-03-22 2021-03-23 Outpatient nullFlavo MNA [id number] Memoria 18:00:00 04:59:59 r Neurology 03 radha [place] 2021-03-22 2021-03-[address] [id number] 13:00:00 23:59:59 Regulo 03 Jose 2021-03-22 2021-03-22 Outpatient MHIE MHIE [id number] Memoria 13:00:00 13:00:00 03 radha Villaseñor 2021-03-21 2021-03-21 Ambulatory nullFlavo MNA [id number] Memoria 19:15:00 19:15:00 Pre-Reg r Neurology 02 radha Moranann 2021-03-21 2021-03-21 Ambulatory nullFlavo MNA [id number] Memoria 15:30:00 15:30:00 Pre-Reg r Neurology 01 radha Villaseñor 2021-03-21 2021-03-21 Outpatient MHIE MHIE [id number] Memoria 14:15:00 14:15:00 02 radha Villaseñor 2021-03-21 2021-03-21 Outpatient OMAYRA VillaALANA MHMISCHER [id number] 14:15:00 14:15:00 Regulo 02 Jose 2021-03-21 2021-03-21 Outpatient MHIE MHIE [id number] Memoria 10:30:00 10:30:00 01 radha Villaseñor 2021-03-21 2021-03-21 Outpatient LACEY VillaSCHER ARIANNEMISCHER [id number] 10:30:00 10:30:00 Regulo Jose 2021-03-13 2021-03-13 (TEL) STLMLC STLMLC [id number] Co mmon 00:00:00 00:00:00 [facility] 2021-03-07 2021-03-07 (TEL) STLMLC STLMLC [id number] Co mmon 00:00:00 00:00:00 [facility] 2021-02-26 2021-02-26 OFFICE STLMLC STLMLC [id number] Co mmon 00:00:00 00:00:[address] [facility] LEVEL 4 [facility] 2021-02-21 2021-02-22 Outpatient nullFlavo MNA [id number] Memoria 18:15:00 04:59:59 r Neurology 00 l [place] Villaseñor 2021-02-21 2021-02-21 Outpatient LACEY VillaSCHER ARIANNEMISCHER [id number] 13:15:00 23:59:59 Regulo 00 Jose 2021-02-21 2021-02-21 Outpatient MHIE MHIE [id number] Memoria 13:15:00 13:15:00 00 radha Kasi 2021-01-18 2021-01-18 Outpatient STLMLC STLMLC [id number] Common 00:00:00 00:00:00 [facility] 2020-12-20 2020-12-20 Outpatient STLMLC STLMLC [id number] Common 00:00:00 00:00:00 [facility] 2020-12-01 2020-12-01 Outpatient STLMLC STLMLC [id number] Common 00:00:00 00:00:00 [facility] 2020-11-30 2020-11-30 Outpatient STLMLC STLMLC [id number] Common 00:00:00 00:00:00 [facility] 2020-11-21 2020-11-21 Outpatient STLMLC STLMLC [id number] Common 00:00:00 00:00:00 [facility] 2020-10-18 2020-10-18 Outpatient STLMLC STLMLC [id number] Common 00:00:00 00:00:00 [facility] 2020-10-06 2020-10-06 Outpatient STLMLC STLMLC [id number] Common 00:00:00 00:00:00 [facility] 2020-09-25 2020-09-25 Outpatient STLMLC STLMLC [id number] Common 00:00:00 00:00:00 [facility] 2020-09-15 2020-09-15 Outpatient Yan_W MMG MMG [id number] [place] 07:15:00 07:15:00 0517 Medical [facility] 2020-09-14 2020-09-14 Outpatient Yan_W MMG MMG [id number] [place] 03:44:00 03:44:00 0429 Medical [facility] 2020-09-14 2020-09-14 Outpatient Yan_W MMG MMG [id number] [place] 03:44:00 03:44:00 0430 Medical [facility] 2020-09-14 2020-09-14 Mansoor Lemus MMG [place] - [id number] [place] 00:00:00 00:00:00 : Ck [facility] [address], [facility], [facility] [facility] [phone] , Ph. 2020-09-13 2020-09-13 Outpatient STLMLC STLMLC [id number] Common 00:00:00 00:00:00 [facility] 2020-09-13 2020-09-13 Outpatient STLMLC STLMLC [id number] Common 00:00:00 00:00:00 [facility] 2020-09-08 2020-09-08 Outpatient Yan_W MMG MMG [id number] [place] 02:57:00 02:57:00 0423 [facility] 2020-09-05 2020-09-05 Outpatient STLMLC STLMLC [id number] Common 00:00:00 00:00:00 [facility] 2020-06-01 2020-06-01 Outpatient Yan_W MMG MMG [id number] [place] 09:10:00 09:10:00 0203 [facility] 2020-05-31 2020-05-31 Outpatient Yan_W MMG MMG [id number] [place] 09:49:00 09:49:00 0113 [facility] 2020-05-31 2020-05-31 SHUN Garcia [place] - [id number] [place] 00:00:00 00:00:00 : Ck [facility] [address] [place] [address], Otolaryngol [facility] [phone] , Ph. 2020-04-05 2020-04-05 Outpatient Yan_W MMG MMG [id number] [place] 02:30:00 02:30:00 [facility]8 [facility] 2020-03-13 2020-03-13 Outpatient Yan_W MMG MMG [id number] [place] 09:57:00 09:57:00 1031 [facility] 2020-03-13 2020-03-13 Outpatient Yan_W MMG MMG [id number] [place] 09:56:00 09:56:00 1026 [facility] 2020-03-07 2020-03-07 Outpatient Yan_W MMG MMG [id number] [place] 02:52:00 02:52:00 1020 [facility] 2020-03-07 2020-03-07 Outpatient Yan_W MMG MMG [id number] [place] 02:52:00 02:52:00 1025 Medical Group 2020-03-07 2020-03-07 SHUN Garcia [place] - [id number] [place] 00:00:00 00:00:00 MD: Ck [facility] [address], [facility], Otolaryngol [place] ogy-[facility] [phone] , Ph. 2020-02-29 2020-02-29 Outpatient Fina [facility] [id number] [place] 12:29:00 12:29:00 1013 [facility] 2019-12-27 2019-12-27 [facility] [id number] Common 11:15:00 11:15:[address] [facility] 2019-12-27 2019-12-27 [facility] [id number] Common 09:19:00 09:19:[address] [facility] 2019-10-26 2019-10-26 [facility] [id number] Common 08:15:00 08:15:[address] [facility] 2019-10-20 2019-10-20 [facility] [id number] Common 23:40:00 23:40:[address] [facility] 2019-10-20 2019-10-20 [facility] [id number] Common 14:40:00 14:40:[address] [facility] 2019-08-19 2019-08-19 [facility] [id number] Common 11:54:00 11:54:[address] [facility] 2019-07-25 2019-07-25 [facility] [id number] Common 13:11:00 13:11:[address] [facility] 2019-07-20 2019-07-20 [facility] [id number] Common 11:00:00 11:00:[address] [facility] 2019-04-24 2019-04-24 [facility] [id number] Common 03:26:00 03:26:[address] [facility] 2019-04-20 2019-04-20 [facility] [id number] Common 09:40:00 09:40:[address] [facility] 2019-03-22 2019-03-22 Outpatient Judy Kim [id number] Common 14:55:00 14:55:00 Schochler Schochler Sp loren DO DO [facility] 2019-01-19 2019-01-19 [facility] [id number] Common 14:40:00 14:40:00 t [facility] [address] [facility] 2018-11-04 2018-11-04 Out[facility] [id number] Common 12:03:00 12:03:[address] [facility] 2018-08-26 2018-08-26 [facility] [id number] Common 11:20:00 11:20:[address] [facility] 2018-08-14 2018-08-14 Out[facility] [id number] Common 14:30:00 14:30:[address] [facility] 2018-08-03 2018-08-03 Out[facility] [id number] Common 12:32:00 12:32:[address] [facility] 2018-06-01 2018-06-01 Out[facility] [id number] Common 10:15:00 10:15:[address] [facility] 2018-03-02 2018-03-02 Out[facility] [id number] Common 09:00:00 09:00:[address] [facility] 2018-01-30 2018-01-30 [facility] [id number] Common 11:30:00 11:30:[address] [facility] 2018-01-20 2018-01-20 [facility] [id number] Common 09:46:00 09:46:00 t [facility] [address] [facility] 2018-01-13 2018-01-13 [facility] [place] [id number] Common 10:00:00 10:00:00 [facility] 2017-12-25 2017-12-25 [facility] [place] [id number] Common 10:56:00 10:56:00 t [facility] [address] [facility] 2017-12-09 2017-12-09 [facility] [place] [id number] Common 21:03:00 21:03:[address] [facility] 2017-12-09 2017-12-09 Out[facility] [id number] Common 09:45:00 09:45:00 t [facility] [address] [facility] 2017-12-03 2017-12-03 Out[facility] [id number] Common 10:45:00 10:45:00 t [facility] [address] [facility] 2017-09-05 2017-09-05 Outpatient [place]iffanie [facility] [id number] Common 16:00:00 16:00:00 [facility] 2017-07-11 2017-07-11 Outpatient Yahaira [facility] [id number] 17:58:00 17:58:00 [facility] 2015-08-10 2015-08-10 Outpatient SOURAV ROBLEDO [facility] [id number] [place] 17:02:00 17:02:00 [id number] [facility] 2015-04-20 2015-04-21 Outpatient SOURAV ROBLEDO [facility] [id number] [place] 05:46:00 13:55:00 [id number] [facility] 2015-04-03 2015-04-03 Outpatient SOURAV ROBLEDO [facility] [id number] [place] 09:00:00 09:00:00 [id number] [facility] 2014-12-12 2014-12-12 Outpatient SOURAV ROBLEDO [facility] [id number] [place] 10:22:00 10:22:00 [id number] [facility] 2014-11-23 2014-11-23 Outpatient SOURAV ROBLEDO [facility] [id number] [place] 16:15:00 16:15:00 [id number] [facility] 2014-08-09 2014-08-09 Outpatient SOURAV ROBLEDO [facility] [id number] [place] 12:50:00 12:50:00 [id number] [facility] Results Test Description Test Time Test Comments Results Result Comments Source EXTERNAL FIT DNA 2022-06-21 10:34:00 Test Item Value Reference Range Interpretation Comme nts CHENCHO (test code = Test Result Negative Negative ? 06/21/2022 4:34 AM [facility] (CLIA #:[id number]) ?Comment: Fo und in Care EveryWhere/Epic. 05/30/2022 Community Orders [facility] ([id number])? [address] [place] [address] 200? [place] [address]? Aissatou Tapia, NIKOS? [address] [facility]? [place] [address]? ? Colon cancer screening (Pr imary Dx) [...] w ith both Cologuard and colonoscopy. (Tito Beasley al, N Engl J Med 2014;370(14):9316-3056) The normal value (reference ra nge) for this assay is negative. COLOGUARD RE-SCREENING RECOMME NDATION: Periodic colorectal cancer screening is an important p art of preventive healthcare for asymptomatic individuals at average risk for colorectal cancer. ?Following a negative [place] guard result, the [place] [employer] Society and U.S. Multi-Soc iety Task Force screening guidelines recommend a Cologuard re-sc reening interval of 3 years. References: [place] Cancer Socie ty Guideline for Colorectal Cancer Screening: https://www.cancer.org/cancer/xqywe-evfxqd-kzyzwa/dete ction-diagn osis-staging/acs-recommendations.html.; Curtis DK, Enzo CR, Trisha GarciaK, Colorectal Cancer Screening: Recommendati ons for Physicians and Patients from the U.S. Multi-Society Ta sk Force on Colorectal Cancer Screening , Am J Gastroenterology 20 17; 112:0159-7394. Lab Normal Interpretation (test code = 63079-4) [facility] (17550)(NA, K, CL, CO2, GLUCOSE, BUN, CREATININE, CA)2021-11-28 17:43:49 Test Item Value Reference Range Interpretation Comments NA (test code = 141 mmol/L 135-145 4066158647) K (test code = 3.6 mmol/L 3.5-5 1211372006) CL (test code = 104 mmol/L 98-108 8932953135) CO2 TOTAL (test code = 28 mmol/L 23-31 4845070594) AGAP (test code = 2-16 8111230399) BUN (test code = 15 mg/dL 7-23 7673345057) GLUCOSE (test code = 238 mg/dL 70-110 H 8758754452) CREATININE (test code = 0.52 mg/dL 0.5-1.04 2395928947) CALCIUM (test code = 8.6 mg/dL 8.6-10.6 5396540325) eGFR (test code = mL/min/1.73m2 2462543389) CHENCHO (test code = CHENCHO) Association of [...] tests). Lab Interpretation Abnormal (test code = 09765-8) [facility] [id number] 17:36:04 Test Item Value Reference Range Interpretation Comments NT-proBNP (test code 977 pg/mL See_Comment H [Autom ated = [id number]) message] The system which generated this result transmitted reference range : <=125. The reference range was not used to interpret this result as normal/abnormal . CHENCHO (test code = CHENCHO) Biotin has been reported to cause a negative bias, interpret results relative to patient's use of biotin. Lab Interpretation Abnormal (test code = 53739-6) [facility] 17:29:44 Test Item Value Reference Range Interpretation Comments MAGNESIUM (test code = 5415158567) 1.8 mg/dL 1.7-2.4 Lab Interpretation (test code = Normal 21803-0) [facility] [id number] 00:00:00 Test Item Value Reference Range Interpretation Comments A1C (test code = 4548-4) 6.3 HEMOGLOBIN [id number] 00:00:00 Test Item Value Reference Range Interpretation Comments A1C (test code = 4548-4) 6.3 ANEMIA [id number] 12:55:00 Test Item Value Reference Range Interpretation Comments Vitamin B12 Lvl (test code = Vitamin 222 672-6507 B12 Lvl) [facility]2021-10-07 12:55:00 Test Item Value Reference Range Interpretation Comments Glucose Lvl (test code = Glucose Lvl) 151 65-99 [place] 255431-10-07 12:55:00 Test Item Value Reference Range Interpretation Comments BUN (test code = BUN) 17 7-25 [place] 255431-10-07 12:55:00 Test Item Value Reference Range Interpretation Comments Creatinine Lvl (test code = Creatinine 0.49 0.50-1.05 Lvl) [place] 255431-10-07 12:55:00 Test Item Value Reference Range Interpretation Comments eGFR NON-AFR. VENEZUELAN (test code = 107 eGFR NON-AFR. VENEZUELAN) [place] 255431-10-07 12:55:00 Test Item Value Reference Range Interpretation Comments eGFR (test code = eGFR 124 ) [facility]2021-10-07 12:55:00 Test Item Value Reference Range Interpretation Comments B/C Ratio (test code = B/C Ratio) 35 6-22 [place] 255431-10-07 12:55:00 Test Item Value Reference Range Interpretation Comments Sodium Lvl (test code = Sodium Lvl) 140 135-146 [facility]2021-10-07 12:55:00 Test Item Value Reference Range Interpretation Comments Potassium Lvl (test code = Potassium 4.0 3.5-5.3 Lvl) [facility]2021-10-07 12:55:00 Test Item Value Reference Range Interpretation Comments Chloride Lvl (test code = Chloride Lvl) 105 98-110 [place] 255431-10-07 12:55:00 Test Item Value Reference Range Interpretation Comments CO2 (test code = CO2) 29 20-32 [place] 255431-10-07 12:55:00 Test Item Value Reference Range Interpretation Comments Calcium Lvl (test code = Calcium Lvl) 8.7 8.6-10.4 [place] 255431-10-07 12:55:00 Test Item Value Reference Range Interpretation Comments Total Protein (test code = Total 6.8 6.1-8.1 Protein) [place] 255431-10-07 12:55:00 Test Item Value Reference Range Interpretation Comments Albumin Lvl (test code = Albumin Lvl) 3.7 3.6-5.1 [place] 255431-10-07 12:55:00 Test Item Value Reference Range Interpretation Comments Globulin (test code = Globulin) 3.1 1.9-3.7 [place] [address]1985-10-07 12:55:00 Test Item Value Reference Range Interpretation Comments A/G Ratio (test code = A/G Ratio) 1.2 1.0-2.5 [place] 255431-10-07 12:55:00 Test Item Value Reference Range Interpretation Comments Bili Total (test code = Bili Total) 0.6 0.2-1.2 [place] [address]-10-07 12:55:00 Test Item Value Reference Range Interpretation Comments Alk Phos (test code = Alk Phos) 59 37-153 [place] 255431-10-07 12:55:00 Test Item Value Reference Range Interpretation Comments ASPARTATE TRANSAMINASE (test code = 18 10-35 ASPARTATE TRANSAMINASE) [place] 255431-10-07 12:55:00 Test Item Value Reference Range Interpretation Comments ALANINE AMINOTRANSFERASE (test code = 23 6-29 ALANINE AMINOTRANSFERASE) [place] [address]-10-07 12:55:00 Test Item Value Reference Range Interpretation Comments WBC X 10x3 (test code = WBC X 10x3) 4.8 3.8-10.8 [place] 633081-10-07 12:55:00 Test Item Value Reference Range Interpretation Comments RBC X 10x6 (test code = RBC X 10x6) 4.50 3.80-5.10 [place] 633081-10-07 12:55:00 Test Item Value Reference Range Interpretation Comments Hgb (test code = Hgb) 12.1 11.7-15.5 [place] [address]-10-07 12:55:00 Test Item Value Reference Range Interpretation Comments Hct (test code = Hct) 37.8 35.0-45.0 [place] 633081-10-07 12:55:00 Test Item Value Reference Range Interpretation Comments MCV (test code = MCV) 84.0 80.0-100.0 [place] 633081-10-07 12:55:00 Test Item Value Reference Range Interpretation Comments MCH (test code = MCH) 26.9 pg 27.0-33.0 [place] 633081-10-07 12:55:00 Test Item Value Reference Range Interpretation Comments MCHC (test code = MCHC) 32.0 32.0-36.0 [facility]KPLT0372-81-72 12:55:00 Test Item Value Reference Range Interpretation Comments RDW (test code = RDW) 14.0 11.0-15.0 [facility]andDesdwmiQMIFIJRAPU2717-36-30 12:55:00 Test Item Value Reference Range Interpretation Comments Platelet (test code = Platelet) 151 140-400 [facility]ellandLdxiaplAOXSIDALWG6593-86-97 12:55:00 Test Item Value Reference Range Interpretation Comments MPV (test code = MPV) 12.1 7.5-12.5 [facility]andDanfsjaSEZEBKYNVF0758-01-45 12:55:00 Test Item Value Reference Range Interpretation Comments Neutrophils # (test code = Neutrophils 3139 9574-8679 #) [facility]ellandKvajlosEZZMYEPKAX9655-99-37 12:55:00 Test Item Value Reference Range Interpretation Comments Lymphocytes # (test code = Lymphocytes 6564 840-7260 #) [facility]ellandGoxnhnlRWQHDPUZCM5640-94-60 12:55:00 Test Item Value Reference Range Interpretation Comments Monocytes # (test code = Monocytes #) 350 200-950 [facility]ellandMfocesmOZQIBWNZLR2442-45-24 12:55:00 Test Item Value Reference Range Interpretation Comments Eosinophils # (test code = Eosinophils 72 15-500 #) [facility]ellandMflfvxlAFTNVJDKLG3111-92-72 12:55:00 Test Item Value Reference Range Interpretation Comments Basophils # (test code = Basophils #) 29 <=200 [place] 633081-10-07 12:55:00 Test Item Value Reference Range Interpretation Comments Segs (test code = Segs) 65.4 [facility]andSezvpjgUIKQMDBNNV1555-57-50 12:55:00 Test Item Value Reference Range Interpretation Comments Lymphocytes (test code = Lymphocytes) 25.2 [place] [address]-10-07 12:55:00 Test Item Value Reference Range Interpretation Comments Monocytes (test code = Monocytes) 7.3 [facility] CenterGjyavipKFTZKHBKRT4162-34-41 12:55:00 Test Item Value Reference Range Interpretation Comments Eosinophils (test code = Eosinophils) 1.5 [facility] CenterCrsogkvYQQCCCCZGQ5367-89-64 12:55:00 Test Item Value Reference Range Interpretation Comments Basophils (test code = Basophils) 0.6 [facility] CenterMylqrxwUTILJMQLHE8103-08-76 12:55:00 Test Item Value Reference Range Interpretation Comments Sed Rate (test code = Sed Rate) 22 [facility]TrhoaygQMXQPLVCKE4354-09-71 12:55:00 Test Item Value Reference Range Interpretation Comments C-REACTIVE PROTEIN (test code = 2.9 C-REACTIVE PROTEIN) [facility] SpringsLipid Cvybnjl5158-28-40 22:09:00 Test Item Value Reference Range Interpretation Comments Cholesterol (test 107 mg/dL 0-200 N code = CHOL) Triglycerides (test 76 mg/dL 9-200 N code = TRIG) HDL (test code = 36 mg/dL 50-60 L HDL) Chol/HDL (test code 3.0 Ratio 0.0-4.4 N = CHOLPHDL) LDL, Calculated 56 0-130 N (NOTE)RISK O F HEART (test code = LDLC) DISEASEPu blished by [place] Heart AssociationAnal yte Optimal Boderli ne Increased RiskC HOL <200 200-239 >240TRI G <150 150-199 >200HDL Male: >60 <40HDL Fem jasbir: >60 <50LDL < 100 130-159 >160LDL NEAR OPTIMAL IS 100- 129 VLDL (test code = 15 mg/dL 5-40 N VLDL) LDL/HDL (test code = 2 LDLPHDL) Comprehensive Metabolic [id number] 22:09:00 Test Item Value Reference Range Interpretation [...] by the National Kidney Foundation,http ://nkd ep.nih.gov Fcb-Xay4651-00-23 22:05:00 Test Item Value Reference Range Interpretation Comments NT ProBnp (test code = PBNP) 1920 pg/mL 0-124 H CBC with Xwtmrhkdgicq7250-07-64 18:24:00 Test Item Value Reference Range Interpretation [...] code = ALYMPH) 1.4 K/cumm 0.5-4.6 N Jones Abs (test code = AMONO) 0.3 K/cumm 0.0-1.2 N Eos Abs (test code = AEOS) 0.09 K/cumm 0.00-0.74 N Baso Abs (test code = ABASO) 0.0 K/cumm 0.00-0.21 N HEMOGLOBIN A1C Test Item Value Reference Range Interpretation Comments A1C (test code = 4548-4) 6.8% SARS-COV 2 AntigenSARS-COV 2 Antigen"
--- NOTE | 2023-03-05 13:28 | RAD REPORT ---
EXAM DESCRIPTION: US - Extremity Venous Uni Ltd - 03/05/2023 12:57 pm CLINICAL HISTORY: Pain, swelling COMPARISON: None. TECHNIQUE: Real-time sonographic evaluation of the right lower extremity deep venous system was perf ormed. FINDINGS: Normal compressibility, flow augmentation, phasic flow and spontaneous flow is identified in the right lower extremity deep venous system. No intraluminal filling defects seen. Large compress ible distal GSV varicosity. IMPRESSION: No evidence of DVT in the right lower extremity.
--- NOTE | 2023-03-05 13:40 | EDPHYS ---
Physician Documentation [facility] Name: Sukh York Age: 63 yrs Sex: Female : 1960 Arrival Date: 03/05/2023 Time: 12:09 Bed Treatment Private MD: ED Physician Linn Hernandez HPI: 03/05 13:37 This 63 yrs old Female presents to ER via Ambulatory with complaints of Leg kb Swelling - Right, Leg Pain - Right. 13:37 The patient presents with pain, swelling, tenderness. The complaints affect the right kb brush. Context: The problem was sustained at home, resulted from an unknown cause, the patient can fully bear weight, the patient is able to ambulate. Onset: The symptoms/episode began/occurred 1 week(s) ago. Modifying factors: The symptoms are alleviated by nothing. the symptoms are aggravated by nothing. Associated signs and symptoms: Pertinent positives: swelling, weakness. Treatment prior to arrival includes: no previous treatment. Severity of symptoms: At their worst the symptoms were moderate, in the emergency department the symptoms are unchanged. The patient has not experienced similar symptoms in the past. The patient has not recently seen a physician. Pt reports engorged varicose veins, pain, swelling and warmth to right lower extremity that started one week ago. Denies fever. Historical: - Allergies: 12:21 PENICILLINS; mb9 - PMHx: 12:21 Aneurysm; Diabetes - NIDDM; COPD; Hypertension; CHF; mb9 - PSHx: 12:21 defibrillator; mb9 - Immunization history:: Adult Immunizations up to date. - Social history:: Smoking status: Patient denies any tobacco usage or history of. ROS: 13:31 Constitutional: Negative for fever, chills, and weight loss, kb 13:31 MS/extremity: Positive for erythema, pain, swelling, warmth, of the right brush, engorged varicose veins , 13:31 All other systems are negative, Exam: 13:31 Constitutional: This is a well developed, well nourished patient who is awake, alert, kb and in no acute distress. Head/Face: Normocephalic, atraumatic. ENT: Moist Mucous membranes Cardiovascular: Regular rate Respiratory: Respirations even and unlabored. No increased work of breathing. Talking in full sentences Abdomen/GI: Soft, non-tender. No distention MS/ Extremity: Pulses equal, no cyanosis. Neurovascular intact. Full, normal range of motion. Neuro: Awake and alert, GCS 15, oriented to person, place, time, and situation. Moves all extremities. Normal gait. 13:31 Skin: cellulitis, that is mild, on the right brush, Vital Signs: 12:19 BP 111 / 67; Pulse 68; Resp 18; Temp 98.1; Pulse Ox 97% on R/A; Weight 113.4 kg; Height mb9 5 ft. 4 in. ; 12:19 Body Mass Index 42.91 (113.40 kg, 162.56 cm) mb9 MDM: 12:15 Patient medically screened. kb 13:34 Differential diagnosis: DVT, thrombophlebitis, cellulitis. Data reviewed: vital signs, kb nurses notes. Counseling: I had a detailed discussion with the patient and/or guardian regarding the historical points, exam findings, and any diagnostic results supporting the discharge/admit diagnosis, radiology results, the need for outpatient follow up, a family practitioner, to return to the emergency department if symptoms worsen or persist or if there are any questions or concerns that arise at home. 03/05 12:23 Order name: US Extremity Venous Unilateral Ltd; Complete Time: 13:29 kb Administered Medications: No medications were administered Disposition Summary: 03/05/23 13:40 Discharge Ordered Notes: Location: Home kb Condition: Stable kb Diagnosis - Cellulitis of right lower limb kb - Varicose veins of right lower extremities with pain kb Followup: kb - With: Emergency Department - When: As needed - Reason: Worsening of condition Followup: kb - With: Private Physician - When: 2 - 3 days - Reason: Recheck today's complaints, Continuance of care, Re-evaluation by your physician Discharge Instructions: - Discharge Summary Sheet kb - Varicose Veins kb - Cellulitis, Adult, [id number] kb Forms: - Medication Reconciliation Form kb - Thank You Letter kb - Antibiotic Education kb - Prescription Opioid Use kb - Patient Portal Instructions kb - Leadership Thank You Letter kb Prescriptions: - Bactrim DS 800-160 mg Oral Tablet - take 1 tablet ORAL route every 12 hours for 10 days; 20 tablet; Refills: 0, kb Product Selection Permitted Signatures: Dispatcher [employer] EDAmalia Eng FNP-C FNP-Ckb Breneman, Josefa, RN RN mb9 Corrections: (The following items were deleted from the chart) 13:40 13:40 Phlebitis and thrombophlebitis of superficial vessels of right lower extremity kb kb
--- NOTE | 2023-03-05 13:40 | ER ---
Nurse's Notes [facility] Name: Sukh York Age: 63 yrs Sex: Female : 1960 Arrival Date: 03/05/2023 Time: 12:09 Bed Treatment Private MD: Diagnosis: Cellulitis of right lower limb;Varicose veins of right lower extremities with pain Presentation: 03/05 12:19 Chief complaint: Patient states: "My right leg has been swelling and burning for the mb9 past week and is slowly getting worse." Pt denies SOB. Coronavirus screen: At this time, the client does not indicate any symptoms associated with coronavirus-19. Ebola Screen: No symptoms or risks identified at this time. Initial Sepsis Screen: Does the patient meet any 2 criteria? No. Patient's initial sepsis screen is negative. Does the patient have a suspected source of infection? No. Patient's initial sepsis screen is negative. Risk Assessment: Do you want to hurt yourself or someone else? Patient reports no desire to harm self or others. Onset of symptoms was March 05, 2023. 12:19 Method Of Arrival: Ambulatory mb9 12:19 Acuity: RADHA 4 mb9 Triage Assessment: 12:22 General: Appears in no apparent distress. Behavior is calm, cooperative. Pain: mb9 Complains of pain in right leg Quality of pain is described as throbbing, Is intermittent. Neuro: [place] Agitation-Sedation Scale (RASS): 0 - Alert and Calm Level of Consciousness is awake, alert, obeys commands, Oriented to person, place, time, situation, Appropriate for age. Cardiovascular: Patient's skin is warm and dry. Respiratory: Airway is patent Respiratory effort is even, unlabored, Respiratory pattern is regular, symmetrical. GI: No signs and/or symptoms were reported involving the gastrointestinal system. : No signs and/or symptoms were reported regarding the genitourinary system. Derm: Skin is pink, warm \\T\\ dry. Musculoskeletal: Range of motion: intact in all extremities, Swelling present in right leg. Historical: - Allergies: 12:21 PENICILLINS; mb9 - PMHx: 12:21 Aneurysm; Diabetes - NIDDM; COPD; Hypertension; CHF; mb9 - PSHx: 12:21 defibrillator; mb9 - Immunization history:: Adult Immunizations up to date. - Social history:: Smoking status: Patient denies any tobacco usage or history of. Screenin:50 [facility] ED Fall Risk Assessment (Adult) History of falling in the last 3 months, ap3 including since admission No falls in past 3 months (0 pts). Abuse screen: Denies threats or abuse. Nutritional screening: No deficits noted. Tuberculosis screening: No symptoms or risk factors identified. Vital Signs: 12:19 BP 111 / 67; Pulse 68; Resp 18; Temp 98.1; Pulse Ox 97% on R/A; Weight 113.4 kg; Height mb9 5 ft. 4 in. ; 12:19 Body Mass Index 42.91 (113.40 kg, 162.56 cm) mb9 ED Course: 12:12 Patient arrived in ED. im 12:15 Amalia Brothers FNP-C is PHCP. kb 12:15 Linn Hernandez MD is Attending Physician. kb 12:19 Arm band placed on. mb9 12:21 Triage completed. mb9 12:46 Betty Cameron, RN is Primary Nurse. ap3 12:59 US Extremity Venous Unilateral Ltd In Process Unspecified. EDMS 13:50 No provider procedures requiring assistance completed. Patient did not have IV access ap3 during this emergency room visit. 13:51 Provided Education on: discharge instructions. ap3 13:51 Patient has correct armband on for positive identification. Bed in low position. Call ap3 light in reach. Side rails up X 1. Administered Medications: No medications were administered Medication: 13:51 VIS not applicable for this client. ap3 Outcome: 13:40 Discharge ordered by . kb 13:51 Discharged to home ambulatory, ap3 13:51 Condition: good 13:51 Discharge instructions given to patient, Instructed on discharge instructions, follow up and referral plans. medication usage, Demonstrated understanding of instructions, follow-up care, medications, Prescriptions given X 1, 14:03 Patient left the ED. ap3 Signatures: Dispatcher [employer] EDMS Amalia Brothers FNP-C FNP-Ckb Prokisch, Amanda, RN RN ap3 Yakelin Rice RN RN mb9 Liliane Palacio im
[2023-03-05 14:12] VITALS: BP 111/67; TEMP 98.1; O2SAT 97
== END 2023-03-05 14:03 | disposition home or self-care (01) ==
LOC: ER 12:09
DX: L03.115 Cellulitis of right lower limb (principal); I83.811 Varicose veins of right lower extremity with pain; Z88.0 Allergy status to penicillin
CPT/HCPCS: 93971

== ENCOUNTER 2023-03-27 02:32 | Emergency (ER) | payer OTHER ==
--- OUTSIDE RECORDS SUMMARY | 2023-03-27 02:50 | XMS REPORT | Continuity of Care Document ---
:1960 Author Organization [facility] t Address [address] [facility] [address] [place] [address] Support Name Relationship Address Phone No, Contact Unavailable Unavailable None, Given Unavailable Unavailable Unavailable Fernando Meneses [place] [address] UN Unavailable Unavailable Unavailable Unavailable Unavailable Unavailable Unavailable AISSATOU TAPIA HUMAN RESOURCES BENEFITS COORDINATOR-C Primary Care Physician [address] [phone] [place] [id number] MD MANSOOR LEMUS Attending Provider [address] [facility] @[email or web address] [address] ELI ALVARADO Unavailable [address] Unavailable [place] [phone] Meneses, Manasa Unavailable [address] [address] [place] [id number] Thea Alvarado Unavailable Unavailable [phone] Meneses, Manasa Unavailable [address] [phone] [place] [address] Meneses, Manasa Unavailable [address] [address] [place] [address] Eli Alvarado Sibling [address] [place] [address] MALLORY COATES Unavailable DEC, AILIN JUNG M Unavailable Unavailable Markell Dec, Ailin Mother Unavailable Unavailable Laila Meneses Child Unavailable Care Team Providers Name Role Phone JACQUI ROBLEDO Primary Care Physician Unavailable Aissatou Tapia Attending Clinician Unavailable JACQUI ROBLEDO Attending Clinician Unavailable Jacqui Robledo Attending Clinician Unavailable Aleah Nicholson Attending Clinician Unavailable WOOD ROACH Attending Clinician Unavailable RADIOLOGY Attending Clinician Unavailable ONELIA JACOB Attending Clinician Unavailable Draw, Clc-Bls Lab Attending Clinician Unavailable Vaughn Whipple Attending Clinician VAUGHN MORRISON Attending Clinician Unavailable Giovany Lee Attending Clinician Yusuf Howe MD Attending Clinician Doctor Unassigned, [place] Attending Clinician Unavailable Marychuy Adames RN Attending Clinician Unavailable [email or web address]_Kadiyala_S Attending Clinician Unavailable Wood Roach MD Attending Clinician [phone] MIREYA ANGEL Attending Clinician Unavailable GIOVANY DILL Attending Clinician Unavailable SOPHIE PITTMAN Attending Clinician Unavailable Mireya Ivory Attending Clinician FE US Attending Clinician Unavailable Alyssa Dodd MD Attending Clinician [phone] ALYSSA DODD Attending Clinician Unavailable Sigifredo Ramirez MD Attending Clinician SIGIFREDO RAMIREZ Attending Clinician Unavailable SIGIFREDO RAMIREZ Attending Clinician Unavailable VIVEK IVEY Attending Clinician Unavailable Lab, Ang - Db Attending Clinician Unavailable Andrews Chavez MD Attending Clinician ANDREWS CHAVEZ Attending Clinician Unavailable ANDREWS CHAVEZ Attending Clinician Unavailable LATASHA MANN Attending Clinician Unavailable Latasha Mann MD Attending Clinician , Adc Sleep Lab Bed Attending Clinician Unavailable Feliberto, General Cardiology Attending Clinician Unavailable Testing, [facility] Pulmonary Function Attending Clinician UnavailMiguel Spencer MD Attending Clinician MIGUEL ALVES Attending Clinician Unavailable Radiology Attending Clinician Unavailable Pob, Adc Lab Main Attending Clinician Unavailable Milo Bennett MD Attending Clinician Fe Us MD Attending Clinician MANDI MOON Attending Clinician Unavailable Nurse, Alexander Cbc Pedi Attending Clinician Unavailable Unknown, Attending Attending Clinician Unavailable UNKNOWN, ATTENDING Attending Clinician Unavailable Regulo Villa Attending Clinician Yue CAM, Joel KRenukaHRenuka Attending Clinician JOEL TURNER Attending Clinician Unavailable Kennedy_Lucio Attending Clinician Unavailable JACQUI ROBLEDO Attending Clinician Unavailable SHYAM, YUSUF Admitting Clinician Unavailable [email or web address]_Kadiyala_S Admitting Clinician Unavailable WOOD ROACH Admitting Clinician Unavailable JOEL TURNER Admitting Clinician Unavailable Fina Admitting Clinician Unavailable JACQUI ROBLEDO Admitting Clinician Unavailable Payers Payer Name Policy Type Policy Number Effective Date Expiration Date S jerome [facility] DUAL [id number] 2021 COMP HMO D SNP 00:00:00 [place] [id number] 2017 00:00:00 [place] [id number] 2023 00:00:00 [facility] MCR Dual 53 [id number] 2021 2023 Common Complete Choice 00:00:00 00:00:00 Spirit - [facility]I (Regional PPO [facility] D-SNP) Medical Center MEDICARE NOVITAS MB [id number] [facility] MEDICARE NOVITAS MB [id number] [facility] MEDICARE NOVITAS MB [id number] [facility] MEDICARE NOVITAS MB [id number] [facility] MEDICARE NOVITAS MB [id number] [facility] [employer] - [id number] 2020 [facility] 00:00:00 (MEDICARE REPLACEMENT/ADVAN TAGE - HMO) [place] [id number] [place] [facility] [id number] - DUAL COMPLETE - DUAL ELIGIBLE - SNP (MEDICARE-MEDICAI D REPLACEMENT HMO) Problems Condition Condition Condition Status Onset Resolution Last Treating Co mments Source Name Details Category Date Date Treatment Clinician Date Angina Angina Disease Active Univers pectoris pectoris 4-19 ity of 00:00: [place] 00 Medical Branch Diabetes Diabetes Disease Active Unive rs mellitus mellitus 4-19 ity of 00:00: [place] 00 Medical Branch Sick sinus Sick sinus [...] tachycardi 00 Me dical a a Branch [id number] Falls Problem Common frequently [facility] [id number] Shortness Problem Com mon of breath [facility] Depression Depression Problem C ommon [facility] [id number] Peripheral Problem Co mmon edema [facility] [id number] Asthma, Problem Commo n unspecifie Spirit d asthma - [facility] severity[facility] whether Medical complicate Center d, unspecifie d whether persistent [id number] Non-pressu Problem Com mon re chronic Spirit ulcer of - CHI unspecifie St d part of [facility] left lower Medica l leg with Center unspecifie d severity [id number] Varicose Problem Comm on veins of Spirit left lower - CHI extremity St with ulcer [facility] Medical unspecifie Center d site Cardiac Cardiac Problem Active 2021-07-26 Me moria defibrilla defibrilla 22:53:26 l tor in tor in [place]asi situ situ (finding) (finding) Active Problem 07/26/2021 [facility] 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 22:53:26 l s s [place] (disorder) (disorder) Active Problem 07/26/2021 [facility] Congestive Congestiv Problem Active 2021-07-26 Memoria heart e heart 22:53:26 l failure failure [place] (disorder) (disorder) Active Problem 07/26/2021 [facility] Headache Headache Problem Active 2021-07-26 Memoria (finding) (finding) 22:53:26 l Active [place] Problem 07/26/2021 [facility] 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 [id number] Unsteady Problem Commo n gait Spirit - [facility] [id number] Obstructiv Problem Com mon e sleep Spirit apnea - [facility] (adult) (pediatric [facility] ) [facility] Hypertensi Hypertensi Problem C ommon on on Spirit - [facility] [id number] Varicose Problem Commo n veins of Spirit bilateral - CHI lower [facility] with Medical pain Center [id number] COVID Problem Common Spirit - [facility] [id number] Brain mass Problem Co mmon Spirit - [facility] [id number] 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 Peripheral Per[facility] disease disease - [facility] Type II Diabetes Problem Common diabetes type 2, Spirit mellitus controlled - CH I well controlled [facility] Cardiomyop Cardiomyop Problem C ommon athy athy Spirit - [facility] [id number] Constipati Problem Com mon on, Spirit unspecifie - CHI d constipati [facility] Medical [place] [id number] AICD Problem Common (automatic Spirit cardiovert - CHI er/defibri [facility]) [facility] [id number] Other Problem Common chronic Spirit pain - [facility] [id number] Tremor of Problem Com mon both hands [facility] - [facility] [id number] Polyarthra Problem Com mon lgia [facility] - [facility] [id number] Chest Problem Common pain, Spirit unspecifie - CHI d type [facility] [id number] Chronic Problem Common congestive Spirit heart - CHI failure, unspecifie [facility] d heart Medical failure Center type [id number] Morbid Problem Common (severe) Spirit obesity - CHI due [facility] [place] calories [facility] [id number] Coronary Problem Com mon 107 artery Spirit disease - CHI involving [facility] coronary Medical artery of [place] [facility] heart, angina presence unspecifie d [id number] Primary Problem Comm on osteoarthr Spirit itis of - CHI right knee [facility] [id number] Status Problem Common post fall [facility] Allergies, Adverse Reactions, Alerts Allergy Allergy Status Severity Reaction(s) Onset Inactive Treating Comm ents Source Name Type Date Date Clinician Penicill DA Active U Unknown 2022-05 [facility] ins 0-05 00:00: 00 PENICILL DRUG Active [...] Active Unknown Commo n in in Spirit [facility] PENICILL Allergy Active [place] to da sub[facility] penicill penicill Active Memori a in in radha Villaseñor Social History Social Habit Start Date Stop Date Quantity Comments Source Sexual [facility] intake 2023-03-20 2023-03-20 Lifetime University of 00:00:00 00:00:00 non-drinker [facility] (finding) Branch Exposure to 2022-10-06 2022-10-16 Not sure University SARS-CoV-2 (event) 00:00:00 11:16:00 [facility] History of Social 2022-07-08 2022-07-08 Univers ity of function 00:00:00 00:00:00 [facility] Tobacco use and 2022-04-10 2022-04-10 Smokeless Universit y of exposure 00:00:00 00:00:00 tobacco non-user [facility] dical [place] Social History 2021-02-21 2021-02-21 [facility] ermann 19:06:01 19:06:01 History of tobacco 2014-05-19 Cigar Smoker Univ ersity of use 00:00:00 [facility] Sex Assigned At [address] [facility] 00:00[facility]00 00:00:00 Medical Center Smoking Status Start Date Stop Date Source Ex-smoker 2022-04-10 00:00:00 2022-04-10 00:00:00 Universi ty [facility] Medications Ordered Filled Start Stop Current Ordering Indication Dosage Frequency Signature Comments Components Source Medication Medication Date Date Medication? Clinician (SIG) Name Name iopamidol 2022-05- No [id number] 100mL 100 mL, Univers (ISOVUE 05-21 Intravenou ity o f 370-500 mL) 19:26: 19:27 s, ONCE, 1 [place] injection 00 :00 dose, On Medica l 100 mL Fri [place] 03/21/23 at 1445, Routine glimepiride 2022-05- No 2mg Take 1 Uni vers 2 mg tablet 05-20 tablet by it y of 15:27: 00:00 mouth [place] 53 :00 daily with Medical breakfast. Branch glimepiride 2022-05- No 2mg Take 1 Uni vers 2 mg tablet 05-20 tablet by it y of 15:27: 00:00 mouth [place] 53 :00 daily with Medical breakfast. Branch JARDIANCE 2022-05 Yes [id number] Take 1 U nivers 10 mg 0-26 tablet by ity of 00:00: mouth once [place] 00 daily Medical Branch JARDIANCE 2022-05 Yes [id number] Take 1 U nivers 10 mg 0-26 tablet by ity of 00:00: mouth once [place] daily Medical Branch JARDIANCE 2022-05 Yes [id number] Take 1 U nivers 10 mg 0-26 tablet by ity of 00:00: mouth once [place] daily Medical Branch JARDIANCE 2022-05 Yes [id number] Take 1 U nivers 10 mg 0-26 tablet by ity of 00:00: mouth once [place] daily Medical Branch JARDIANCE 2022-05 Yes [id number] Take 1 U nivers 10 mg 0-26 tablet by ity of 00:00: mouth once [place] daily Medical Branch JARDIANCE 2022-05 Yes [id number] Take 1 U nivers 10 mg 0-26 tablet by ity of 00:00: mouth once [place] daily Medical Branch JARDIANCE 2022-05 Yes [id number] Take 1 U nivers 10 mg 0-26 tablet by ity of 00:00: mouth once [place] daily Medical Branch JARDIANCE 2022-05 Yes [id number] Take 1 U nivers 10 mg 0-26 tablet by ity of 00:00: mouth once [place] daily Medical Branch JARDIANCE 2022-05 Yes [id number] Take 1 U nivers 10 mg 0-26 tablet by ity of 00:00: mouth once [place] daily Medical Branch JARDIANCE 2022-05 Yes [id number] Take 1 U nivers 10 mg 0-26 tablet by ity of 00:00: mouth once [place] daily Medical Branch JARDIANCE 2022-05 Yes [id number] Take 1 U nivers 10 mg 0-26 tablet by ity of 00:00: mouth once [place] daily Medical Branch JARDIANCE 2022-05 Yes [id number] Take 1 U nivers 10 mg 0-26 tablet by ity of 00:00: mouth once [place] daily Medical Branch Albuterol Albuterol No 1{puff_ 6xD Albuterol Sulfate HFA Sulfate HFA 08 as_need Sulfate 108 (90 108 (90 00:00: ed} HFA 108 Base) Base) 00 (90 Base) MCG/ACT MCG/ACT MCG/ACT Albuterol Albuterol No 1{puff_ 6xD Albuterol Sulfate HFA Sulfate HFA 01-24 as_need Sulfate 108 (90 108 (90 00:00: ed} HFA 108 Base) Base) 00 (90 Base) MCG/ACT MCG/ACT MCG/ACT Albuterol Albuterol No 1{puff_ 6xD Albuterol Sulfate HFA Sulfate HFA 01-24 as_need Sulfate 108 (90 108 (90 00:00: ed} HFA 108 Base) Base) 00 (90 Base) MCG/ACT MCG/ACT MCG/ACT Paxlovid Paxlovid No 3{table BID Paxlovid (300/100) (300/100) 01-17 ts} (300/100) 20 x 150 MG 20 x 150 MG 00:00: 20 x 150 & 10 x & 10 x 00 MG & 10 x 100MG 100MG 100MG Paxlovid Paxlovid No 3{table BID Paxlovid (300/100) (300/100) 01-17 ts} (300/100) 20 x 150 MG 20 x 150 MG 00:00: 20 x 150 & 10 x & 10 x 00 MG & 10 x 100MG 100MG 100MG Paxlovid Paxlovid No 3{table BID Paxlovid (300/100) (300/100) 01-17 ts} (300/100) 20 x 150 MG 20 x 150 MG 00:00: 20 x 150 & 10 x & 10 x 00 MG & 10 x 100MG 100MG 100MG JARDIANCE 0 Yes [id number] Take 1 U nivers 10 mg 6-27 tablet by ity of 00:00: mouth once daily Medical Branch JARDIANCE 0 Yes [id number] Take 1 U nivers 10 mg 6-27 tablet by ity of 00:00: mouth once daily Medical Branch JARDIANCE 0 2022- No [id number] Take 1 Univers 10 mg 6-27 10-26 tablet by ity of 00:00: 00:00 mouth once [place] 00 :00 daily Medical Branch Bupivicaine Bupivicaine 0 No 4mL Common Bailey Bailey 10-24 Spirit 00:00: - [facility] Hyalgan Hyalgan 3-0 No 2mL Common 10-24 Spirit 00:00: - [facility]I 00 [facility] Hyalgan Hyalgan 3-0 No 2mL Common 10-24 Spirit 00:00: - [facility]I 00 [facility] Kenalog Kenalog 3-0 No 1mL Common (Triamcinol (Triamcinol 6-08 S pirit one) one) 00:00: - [facility] 00 [facility] Bupivicaine Bupivicaine 3-0 No 4mL Common Bailey Bailey 10-24 Spirit 00:00: - [facility] 00 [facility] Hyalgan Hyalgan 3-0 No 2mL Common 10-24 Spirit 00:00: - [facility] 00 [facility] Hyalgan Hyalgan 3-0 No 2mL Common 10-24 Spirit 00:00: - [facility] 00 [facility] Kenalog Kenalog 3-0 No 1mL Common (Triamcinol (Triamcinol 6-08 S pirit one) one) 00:00: - [facility] 00 [facility] Bupivicaine Bupivicaine 3-0 No 4mL Common Bailey Bailey 10-24 Spirit 00:00: - [facility] 00 [facility] Hyalgan Hyalgan 3-0 No 2mL Common 10-24 Spirit 00:00: - [facility] 00 [facility] Hyalgan Hyalgan 3-0 No 2mL Common 10-24 Spirit 00:00: - [facility] 00 [facility] Kenalog Kenalog 3-0 No 1mL Common (Triamcinol (Triamcinol 6-08 S pirit one) one) 00:00: - [facility] 00 [facility] Hyalgan Hyalgan 3-0 No 2mL Common 10-17 Spirit 00:00: - [facility]I 00 [facility] Hyalgan Hyalgan 3-0 No 2mL Common 10-17 Spirit 00:00: - [facility]I 00 [facility] Hyalgan Hyalgan 2023-0 No 2mL Common 10-17 Spirit 00:00: - [facility] 00 [facility] Hyalgan Hyalgan 2023-0 No 2mL Common 10-17 Spirit 00:00: - [facility]I 00 [facility] Hyalgan Hyalgan 2023-0 No 2mL Common 10-17 Spirit 00:00: - [facility]I 00 [facility] Hyalgan Hyalgan 3-0 No 2mL Common 10-17 Spirit 00:00: - [facility]I 00 [facility] sacubitriL- 3-0 Yes 1{tbl} Take 1 Un [...] Branch and 1 tablet in the evening. Kenalog Kenalog 2022-0 No 1mL Common (Triamcinol (Triamcinol 5-25 S pirit one) one) 00:00: - [facility] 00 [facility] Bupivicaine Bupivicaine 3-0 No 4mL Common Bailey Bailey 5-25 Spirit 00:00: - [facility]I 00 [facility] Hyalgan Hyalgan 3-0 No 2mL Common 5-25 Spirit 00:00: - [facility] 00 [facility] Hyalgan Hyalgan 3-0 No 2mL Common 5-25 Spirit 00:00: - [facility]I 00 [facility] Hyalgan Hyalgan 3-0 No 2mL Common 5-25 Spirit 00:00: - [facility] 00 [facility] Hyalgan Hyalgan 3-0 No 2mL Common 5-25 Spirit 00:00: - [facility] Bupivicaine Bupivicaine 3-0 No 4mL Common Bailey Bailey 5-25 Spirit 00:00: - [facility]I 00 [facility] Kenalog Kenalog 2022-0 No 1mL Common (Triamcinol (Triamcinol 5-25 S pirit one) one) 00:00: - [facility]I 00 [facility] Hyalgan Hyalgan 3-0 No 2mL Common 5-25 Spirit 00:00: - [facility] 00 [facility] Hyalgan Hyalgan 3-0 No 2mL Common 5-25 Spirit 00:00: - [facility] 00 [facility] Bupivicaine Bupivicaine 0 No 4mL Common Bailey Bailey 5-25 Spirit 00:00: - [facility] Kenalog Kenalog No 1mL Common (Triamcinol (Triamcinol 5-25 S pirit one) one) 00:00: - [facility] MOUNJARO 0 Yes Univers 2.5 mg/0.5 5-12 ity [facility] mL [facility] 2[facility] mg/0.5 5-12 ity of mL PnIj 00:00: [facility] 0 Yes Univers 2.5 mg/0.5 5-12 ity of mL PnIj [facility] Univers 2.5 mg/0.5 5-12 ity of mL PnIj [facility] Univers 2.5 mg/0.5 5-12 ity of mL PnIj 00:00: [facility] 0 Yes Univers 2.5 mg/0.5 5-12 ity of mL PnIj [facility] Univers 2.5 mg/0.5 5-12 ity of mL PnIj [facility] Univers 2.5 mg/0.5 5-12 ity of mL PnIj 00:[facility] Univers 2.5 mg/0.5 5-12 ity of mL PnIj 00:[facility] Univers 2.5 mg/0.5 5-12 ity of mL PnIj [facility] Univers 2.5 mg/0.5 5-12 ity of mL PnIj [facility] Univers 2.5 mg/0.5 5-12 ity of mL PnIj 00:00: Medical Branch MOUNJARO 2023-0 Yes Univers 2.5 mg/0.5 5-12 ity of mL PnIj 00:00: [place] [facility] MOUNJARO 2023-0 Yes Univers 2.5 mg/0.5 5-12 ity of mL PnIj 00:00: [place] [facility] MOUNJARO 2023-0 Yes Univers 2.5 mg/0.5 5-12 ity of mL PnIj 00:00: [place] [facility] MOUNJARO 2023-0 Yes Univers 2.5 mg/0.5 5-12 ity of mL PnIj 00:00: [place] [facility] MOUNJARO 2023-0 Yes Univers 2.5 mg/0.5 5-12 ity of mL PnIj 00:00: [place] [facility] MOUNJARO 3-0 Yes Univers 2.5 mg/0.5 5-12 ity of mL PnIj 00:00: [place] [facility] MOUNJARO 2023-0 Yes Univers 2.5 mg/0.5 5-12 ity of mL PnIj 00:00: [place] [facility] MOUNJARO 2023-0 Yes Univers 2.5 mg/0.5 5-12 ity of mL PnIj 00:00: [place] [facility] Mounjaro 5 Mounjaro 5 2023-0 No Mounjaro 5 MG/0.5ML MG/0.5ML 5-12 MG/0.5ML 00:00: 00 Mounjaro 5 Mounjaro 5 2023-0 No Mounjaro 5 MG/0.5ML MG/0.5ML 5-12 MG/0.5ML 00:00: 00 Mounjaro 5 Mounjaro 5 2023-0 No Mounjaro 5 MG/0.5ML MG/0.5ML 5-12 MG/0.5ML 00:00: 00 JARDIANCE 2023-0 Yes [id number] Take 1 U nivers 10 mg 4-03 tablet by ity of 00:00: mouth once [place] [address] daily Medical Branch JARDIANCE 2023-0 Yes [id number] Take 1 U nivers 10 mg 4-03 tablet by ity of 00:00: mouth once [place] [address] daily Medical Branch JARDIANCE 2023-0 Yes [id number] Take 1 U nivers 10 mg 4-03 tablet by ity of 00:00: mouth once [place] daily Medical Branch JARDIANCE 2023-0 Yes [id number] Take 1 U nivers 10 mg 4-03 tablet by ity of 00:00: mouth once [place] daily Medical Branch JARDIANCE 3-0 Yes [id number] Take 1 U nivers 10 mg 4-03 tablet by ity of 00:00: mouth once [place] daily Medical Branch JARDIANCE 3-0 Yes [id number] Take 1 U nivers 10 mg 4-03 tablet by ity of 00:00: mouth once [place] daily Medical Branch JARDIANCE 3-0 Yes [id number] Take 1 U nivers 10 mg 4-03 tablet by ity of 00:00: mouth once [place] daily Medical Branch JARDIANCE 3-0 Yes [id number] Take 1 U nivers 10 mg 4-03 tablet by ity of 00:00: mouth once [place] daily Medical Branch JARDIANCE 3-0 Yes [id number] Take 1 U nivers 10 mg 4-03 tablet by ity of 00:00: mouth once [place] daily Medical Branch JARDIANCE 3-0 Yes [id number] Take 1 U nivers 10 mg 4-03 tablet by ity of 00:00: mouth once [place] daily Medical Branch JARDIANCE 3-0 Yes [id number] Take 1 U nivers 10 mg 4-03 tablet by ity of 00:00: mouth once [place] daily Medical Branch JARDIANCE 2023-0 Yes [id number] Take 1 U nivers 10 mg 4-03 tablet by ity of 00:00: mouth once [place] daily Medical Branch JARDIANCE 2023-0 Yes [id number] Take 1 U nivers 10 mg 4-03 tablet by ity of 00:00: mouth once [place] daily Medical Branch JARDIANCE 2023-0 Yes [id number] Take 1 U nivers 10 mg 4-03 tablet by ity of 00:00: mouth once [place] daily Medical Branch JARDIANCE 2023-0 Yes [id number] Take 1 U nivers 10 mg 4-03 tablet by ity of 00:00: mouth once [place] daily Medical Branch JARDIANCE 2023-0 Yes [id number] Take 1 U nivers 10 mg 4-03 tablet by ity of 00:00: mouth once [place] daily Medical Branch JARDIANCE 3-0 Yes [id number] Take 1 U nivers 10 mg 4-03 tablet by ity of 00:00: mouth once [place] daily Medical Branch JARDIANCE 3-0 Yes [id number] Take 1 U nivers 10 mg 4-03 tablet by ity of 00:00: mouth once [place] daily Medical Branch JARDIANCE 3-0 Yes [id number] Take 1 U nivers 10 mg 4-03 tablet by ity of 00:00: mouth once [place] daily Medical Branch JARDIANCE 3-0 Yes [id number] Take 1 U nivers 10 mg 4-03 tablet by ity of 00:00: mouth once [place] daily Medical Branch JARDIANCE 2022-0 Yes [id number] Take 1 U nivers 10 mg 4-03 tablet by ity of 00:00: mouth once [place] daily Medical Branch JARDIANCE 3-0 Yes [id number] Take 1 U nivers 10 mg 4-03 tablet by ity of 00:00: mouth once [place] daily Medical Branch JARDIANCE 2022-0 Yes [id number] Take 1 U nivers 10 mg 4-03 tablet by ity of 00:00: mouth once [place] daily Medical Branch JARDIANCE 2022-0 Yes [id number] Take 1 U nivers 10 mg 4-03 tablet by ity of 00:00: mouth once [place] daily Medical Branch JARDIANCE 3-0 2022- No [id number] Take 1 Univers 10 mg 4-03 06-27 tablet by ity of 00:00: 00:00 mouth once [place] 00 : daily Medical Branch spironolact 3-0 Yes [id number] 12.5mg Take 0.5 Univers one 25 mg 3-29 tablets by ity of tablet 00:00: mouth in [place] the Medical morning. Branch spironolact 3-0 Yes [id number] 12.5mg Take 0.5 Univers one 25 mg 3-29 tablets by ity of tablet 00:00: mouth in [place] the Medical morning. Branch spironolact 3-0 Yes [id number] 12.5mg Take 0.5 Univers one 25 mg 3-29 tablets by ity of tablet 00:00: mouth in [place] the Medical morning. Branch spironolact 2023-0 Yes [id number] 12.5mg Take 0.5 Univers one 25 mg 3-29 tablets by ity of tablet 00:00: mouth in [place] the Medical morning. Branch spironolact 2023-0 Yes [id number] 12.5mg Take 0.5 [facility] 25 mg 3-29 tablets by [facility] tablet 00:00: mouth in [place] the Medical morning. Branch spironolact 2023-0 Yes [id number] 12.5mg Take 0.5 [facility] 25 mg 3-29 tablets by [facility] of tablet 00:00: mouth in [place] the Medical morning. Branch spironolact 2023-0 Yes [id number] 12.5mg Take 0.5 [facility] 25 mg 3-29 tablets by [facility] of tablet 00:00: mouth in [place] the Medical morning. Branch spironolact 2023-0 Yes [id number] 12.5mg Take 0.5 [facility] 25 mg 3-29 tablets by [facility] of tablet 00:00: mouth in [place] the Medical morning. Branch spironolact 2023-0 Yes [id number] 12.5mg Take 0.5 [facility] 25 mg 3-29 tablets by [facility] of tablet 00:00: mouth in [place] the Medical morning. Branch spironolact 2023-0 Yes [id number] 12.5mg Take 0.5 [facility] 25 mg 3-29 tablets by [facility] of tablet 00:00: mouth in [place] the Medical morning. Branch spironolact 2023-0 Yes [id number] 12.5mg Take 0.5 [facility] 25 mg 3-29 tablets by [facility] of tablet 00:00: mouth in [place] the Medical morning. Branch spironolact 2023-0 Yes [id number] 12.5mg Take 0.5 [facility] 25 mg 3-29 tablets by [facility] of tablet 00:00: mouth in [place] the Medical morning. Branch spironolact 2023-0 Yes [id number] 12.5mg Take 0.5 [facility] 25 mg 3-29 tablets by [facility] of tablet 00:00: mouth in [place] the Medical morning. Branch spironolact 2023-0 Yes [id number] 12.5mg Take 0.5 [facility] 25 mg 3-29 tablets by [facility] of tablet 00:00: mouth in [place] 00 the Medical morning. Branch spironolact 2023-0 Yes [id number] 12.5mg Take 0.5 [facility] 25 mg 3-29 tablets by [facility] of tablet 00:00: mouth in [place] the Medical morning. Branch spironolact 2023-0 Yes [id number] 12.5mg Take 0.5 [facility] 25 mg 3-29 tablets by [facility] of tablet 00:00: mouth in [place] the Medical morning. Branch spironolact 2023-0 Yes [id number] 12.5mg Take 0.5 [facility] 25 mg 3-29 tablets by [facility] of tablet 00:00: mouth in [place] the Medical morning. Branch spironolact 2023-0 Yes [id number] 12.5mg Take 0.5 [facility] 25 mg 3-29 tablets by [facility] of tablet 00:00: mouth in [place] the Medical morning. Branch spironolact 2023-0 Yes [id number] 12.5mg Take 0.5 [facility] 25 mg 3-29 tablets by [facility] of tablet 00:00: mouth in [place] the Medical morning. Branch spironolact 2023-0 Yes [id number] 12.5mg Take 0.5 [facility] 25 mg 3-29 tablets by [facility] of tablet 00:00: mouth in [place] the Medical morning. Branch spironolact 2023-0 Yes [id number] 12.5mg Take 0.5 [facility] 25 mg 3-29 tablets by [facility] of tablet 00:00: mouth in [place] the Medical morning. Branch spironolact 2023-0 Yes [id number] 12.5mg Take 0.5 [facility] 25 mg 3-29 tablets by [facility] of tablet 00:00: mouth in [place] the Medical morning. Branch spironolact 2023-0 Yes [id number] 12.5mg Take 0.5 [facility] 25 mg 3-29 tablets by [facility] of tablet 00:00: mouth in [place] 00 the Medical morning. Branch spironolact 2023-0 Yes [id number] 12.5mg Take 0.5 [facility] 25 mg 3-29 tablets by [facility] of tablet 00:00: mouth in [place] 00 the Medical morning. Branch spironolact 2023-0 Yes [id number] 12.5mg Take 0.5 [facility] 25 mg 3-29 tablets by [facility] of tablet 00:00: mouth in [place] 00 the Medical morning. Branch spironolact 2023-0 Yes [id number] 12.5mg Take 0.5 [facility] 25 mg 3-29 tablets by [facility] of tablet 00:00: mouth in [place] 00 the Medical morning. Branch spironolact 2023-0 Yes [id number] 12.5mg Take 0.5 [facility] 25 mg 3-29 tablets by [facility] of tablet 00:00: mouth in [place] 00 the Medical morning. Branch spironolact 2023-0 Yes [id number] 12.5mg Take 0.5 [facility] 25 mg 3-29 tablets by [facility] of tablet 00:00: mouth in [place] 00 the Medical morning. Branch spironolact 2023-0 Yes [id number] 12.5mg Take 0.5 [facility] 25 mg 3-29 tablets by [facility] of tablet 00:00: mouth in [place] 00 the Medical morning. Branch spironolact 2023-0 Yes [id number] 12.5mg Take 0.5 [facility] 25 mg 3-29 tablets by [facility] of tablet 00:00: mouth in [place] 00 the Medical morning. Branch spironolact 2023-0 Yes [id number] 12.5mg Take 0.5 [facility] 25 mg 3-29 tablets by [facility] of tablet 00:00: mouth in [place] 00 the Medical morning. Branch spironolact 2023-0 Yes [id number] 12.5mg Take 0.5 [facility] 25 mg 3-29 tablets by [facility] of tablet 00:00: mouth in [place] 00 the Medical morning. Branch spironolact 2023-0 2023- No [id number] 12.5mg Take 0.5 [facility] 25 mg 3-29 11-02 tablets by [facility] of tablet 00:00: 00:00 mouth in [place] 00 :00 the Medical morning. Branch spironolact 2023-0 2023- No [id number] 12.5mg Take 0.5 [facility] 25 mg 3-29 11-02 tablets by [facility] of tablet 00:00: 00:00 mouth in [place] 00 :00 the Medical morning. Branch metformin 2023-0 Yes 500mg Take 500 [...] ity of 13:01: daily with [place] [address] breakfast. Medical Branch metformin 2022-0 Yes 500mg [...] ity of 13:01: daily with [place] [address] breakfast. Medical Branch metformin 3-0 Yes 500mg [...] ity of 13:01: daily with [place] [address] breakfast. Medical Branch metformin 3-0 Yes 500mg [...] ity of 13:01: daily with [place] [address] breakfast. Medical Branch metformin 3-0 Yes 500mg [...] ity of 13:01: daily with [place] [address] breakfast. Medical Branch metformin 3-0 Yes 500mg [...] ity of 13:01: daily with [place] [address] breakfast. Medical Branch metformin 3-0 Yes 500mg Take 500 [facility] vers HCl 2-20 mg by [facility] (METFORMIN 13:01: [place] (two) Medical times Branch daily with meals. sacubitriL- 2023-0 Yes 1{tbl} Take 1 [facility] valsartan 2-20 tablet by ity o f 49-51 mg 13:01: mouth 2 [place] tablet 33 (two) Medical times Branch daily. glimepiride 2023-0 Yes 2mg Take 2 mg [facility] n[facility] 2 mg tablet 2-20 by mouth ity of 13:01: daily with [place] [address] breakfast. Medical Branch metformin 2023-0 Yes 500mg [...] ity of 13:01: daily with [place] [address] breakfast. Medical Branch metformin 3-0 Yes 500mg [...] ity of 13:01: daily with [place] [address] breakfast. Medical Branch metformin 3-0 Yes 500mg [...] ity of 13:01: daily with [place] [address] breakfast. Medical Branch metformin 3-0 Yes 500mg [...] ity of 13:01: daily with [place] [address] breakfast. Medical Branch metformin 2023-0 Yes 500mg [...] ity of 13:01: daily with [place] [address] breakfast. Medical Branch metformin 3-0 Yes 500mg [...] ity of 13:01: daily with [place] [address] breakfast. Medical Branch metformin 3-0 Yes 500mg [...] ity of 13:01: daily with [place] [address] breakfast. Medical Branch metformin 2023-0 Yes 500mg Take 500 [facility] HCl 2-20 mg by [facility] (METFORMIN 13:01: [place] (two) Medical times Branch daily with meals. glimepiride 2023-0 Yes 2mg Take 2 mg [facility] nivers 2 mg tablet 2-20 by mouth ity of 13:01: daily with [place] [address] breakfast. Medical Branch metformin 2023-0 Yes 500mg Take 500 [facility] vers HCl 2-20 mg by [facility] of (METFORMIN 13:01: [place] 33 (two) Medical times Branch daily with meals. glimepiride 2023-0 Yes 2mg Take 2 mg [facility] n[facility] 2 mg tablet 2-20 by mouth ity of 13:01: daily with [place] [address] breakfast. Medical Branch metformin 2023-0 Yes 500mg Take 500 [facility] vers HCl 2-20 mg by [facility] of (METFORMIN 13:01: [place] (two) Medical times Branch daily with meals. glimepiride 2023-0 Yes 2mg Take 2 mg [facility] nivers 2 mg tablet 2-20 by mouth ity of 13:01: daily with [place] [address] breakfast. Medical Branch metformin 2023-0 Yes 500mg Take 500 [facility] vers HCl 2-20 mg by [facility] of (METFORMIN 13:01: [place] 33 (two) Medical times Branch daily with meals. glimepiride 2023-0 Yes 2mg Take 2 mg [facility] n[facility] 2 mg tablet 2-20 by mouth ity of 13:01: daily with [place] [address] breakfast. Medical Branch metformin 2023-0 Yes 500mg Take 500 [facility] HCl 2-20 mg by [facility] of (METFORMIN 13:01: [place] 33 (two) Medical times Branch daily with meals. glimepiride 2023-0 Yes 2mg Take 2 mg [facility] nivers 2 mg tablet 2-20 by mouth ity of 13:01: daily with [place] [address] breakfast. Medical Branch metformin 2023-0 Yes 500mg Take 500 [facility] HCl 2-20 mg by [facility] of (METFORMIN 13:01: [place] 33 (two) Medical times Branch daily with meals. glimepiride 2023-0 Yes 2mg Take 2 mg [facility] 2 mg tablet 2-20 by mouth ity of 13:01: daily with [place] [address] breakfast. Medical Branch metformin 2023-0 Yes 500mg Take 500 [facility] HCl 2-20 mg by [facility] of (METFORMIN 13:01: [place] 33 (two) Medical times Branch daily with meals. glimepiride 2023-0 Yes 2mg Take 2 mg [facility] n[facility] 2 mg tablet 2-20 by mouth ity of 13:01: daily with [place] [address] breakfast. Medical Branch metformin 2023-0 Yes 500mg Take 500 [facility] HCl 2-20 mg by [facility] of (METFORMIN 13:01: mouth [place] 33 (two) Medical times Branch daily with meals. glimepiride 2023-0 Yes 2mg Take 2 mg [facility] nivers 2 mg tablet 2-20 by mouth ity of 13:01: daily with [place] [address] breakfast. Medical Branch metformin 2023-0 Yes 500mg Take 500 [facility] HCl 2-20 mg by [facility] of (METFORMIN 13:01: mouth [place] 33 (two) Medical times Branch daily with meals. glimepiride 2023-0 Yes 2mg Take 2 mg [facility] 2 mg tablet 2-20 by mouth ity of 13:01: daily with [place] [address] breakfast. Medical Branch metformin 2023-0 Yes 500mg Take 500 [facility] HCl 2-20 mg by [facility] of (METFORMIN 13:01: mouth [place] 33 (two) Medical times Branch daily with meals. glimepiride 2023-0 Yes 2mg Take 2 mg [facility] 2 mg tablet 2-20 by mouth ity of 13:01: daily with [place] [address] breakfast. Medical Branch metformin 2023-0 Yes 500mg Take 500 [facility] HCl 2-20 mg by [facility] of (METFORMIN 13:01: [place] 33 (two) Medical times Branch daily with meals. metformin 2023-0 Yes 500mg Take 500 [facility] HCl 2-20 mg by [facility] of (METFORMIN 13:01: mouth [place] 33 (two) Medical times Branch daily with meals. metformin 2023-0 Yes 500mg Take 500 [facility] HCl 2-20 mg by [facility] of (METFORMIN 13:01: mouth [place] 33 (two) Medical times Branch daily with meals. metformin 2023-0 Yes 500mg Take 500 [facility] HCl 2-20 mg by [facility] of (METFORMIN 13:01: mouth [place] 33 (two) Medical times Branch daily with meals. metformin 2023-0 Yes 500mg Take 500 [facility] HCl 2-20 mg by [facility] of (METFORMIN 13:01: mouth [place] 33 (two) Medical times Branch daily with meals. metformin 2023-0 Yes 500mg Take 500 [facility] vers HCl 2-20 mg by [facility] of (METFORMIN 13:01: mouth [place] 33 (two) Medical times Branch daily with meals. metformin 2023-0 Yes 500mg Take 500 [facility] vers HCl 2-20 mg by [facility] of (METFORMIN 13:01: mouth [place] 33 (two) Medical times Branch daily with meals. metformin 2023-0 Yes 500mg Take 500 [facility] vers HCl 2-20 mg by [facility] of (METFORMIN 13:01: mouth [place] 33 (two) Medical times Branch daily with meals. metformin 2023-0 Yes 500mg Take 500 [facility] vers HCl 2-20 mg by [facility] of (METFORMIN 13:01: mouth [place] 33 (two) Medical times Branch daily with meals. metformin 2023-0 Yes 500mg Take 500 [facility] vers HCl 2-20 mg by ity of (METFORMIN 13:01: mouth [place] 33 (two) Medical times Branch daily with meals. metformin 2023-0 Yes 500mg Take 500 [facility] [...] ity of 13:01: daily with [place] [address] breakfast. Medical Branch metformin 3-0 Yes 500mg Take 500 [facility] vers HCl 2-20 mg by [facility] of (METFORMIN 13:01: mouth [place] 33 (two) Medical times Branch daily with meals. sacubitriL- 2023-0 Yes 1{tbl} Take 1 [facility] valsartan 2-20 tablet by ity o f 49-51 mg 13:01: mouth 2 [place] tablet 33 (two) Medical times Branch daily. glimepiride 2023-0 Yes 2mg Take 2 mg [facility] nivers 2 mg tablet 2-20 by mouth ity of 13:01: daily with [place] [address] breakfast. Medical Branch metformin 2022-0 Yes 500mg [...] ity of 13:01: daily with [place] [address] breakfast. Medical Branch metformin 3-0 Yes 500mg [...] daily with [place] breakfast. Medical Branch metformin 3-0 Yes 500mg [...] ity of 13:01: daily with [place] [address] breakfast. Medical Branch metformin 3-0 Yes 500mg [...] ity of 13:01: daily with [place] [address] breakfast. Medical Branch metformin 2022-0 Yes 500mg [...] ity of 13:01: daily with [place] [address] breakfast. Medical Branch metformin 3-0 Yes 500mg [...] ity of 13:01: daily with [place] [address] breakfast. Medical Branch metformin 2022-0 Yes 500mg [...] ity of 13:01: daily with [place] [address] breakfast. Medical Branch metformin 2022-0 Yes 500mg [...] ity of 13:01: daily with [place] [address] breakfast. Medical Branch metformin 2022-0 Yes 500mg [...] ity of 13:01: daily with [place] [address] breakfast. Medical Branch metformin 2022-0 Yes 500mg Take 500 [facility] vers HCl 2-20 mg by [facility] of (METFORMIN 13:01: [place] (two) Medical times Branch daily with meals. sacubitriL- 3-0 Yes 1{tbl} Take 1 [facility] valsartan 2-20 tablet by ity o f 49-51 mg 13:01: mouth 2 [place] tablet 33 (two) Medical times Branch daily. glimepiride 3-0 Yes 2mg Take 2 mg [facility] nivers 2 mg tablet 2-20 by mouth ity of 13:01: daily with [place] [address] breakfast. Medical Branch metformin 2022-0 Yes 500mg [...] ity of 13:01: daily with [place] [address] breakfast. Medical Branch metformin 2022-0 Yes 500mg [...] daily with [place] 33 breakfast. Medical Branch bumetanide 3-0 Yes 1mg TAKE 1 [facility] 1 mg tablet 1-12 TABLET BY ity of 00:00: MOUTH IN [place] 00 THE Medical MORNING Branch AND 1 TABLET IN THE EVENING bumetanide 3-0 Yes 1mg TAKE 1 [facility] rs 1 mg tablet 1-12 TABLET BY ity of 00:00: MOUTH IN [place] 00 THE Medical MORNING Branch AND 1 TABLET IN THE EVENING bumetanide 3-0 Yes 1mg TAKE 1 [facility] 1 mg tablet 1-12 TABLET BY ity of 00:00: MOUTH IN [place] 00 THE Medical MORNING Branch AND 1 TABLET IN THE EVENING bumetanide 3-0 Yes 1mg TAKE 1 [facility] 1 mg tablet 1-12 TABLET BY ity of 00:00: MOUTH IN [place] 00 THE Medical MORNING Branch AND 1 TABLET IN THE EVENING bumetanide 3-0 Yes 1mg TAKE 1 [facility] rs 1 mg tablet 1-12 TABLET BY ity of 00:00: MOUTH IN [place] 00 THE Medical MORNING Branch AND 1 TABLET IN THE EVENING bumetanide 3-0 Yes 1mg TAKE 1 [facility] 1 mg tablet 1-12 TABLET BY ity of 00:00: MOUTH IN [place] 00 THE Medical MORNING Branch AND 1 TABLET IN THE EVENING bumetanide 3-0 Yes 1mg TAKE 1 [facility] rs 1 mg tablet 1-12 TABLET BY ity of 00:00: MOUTH IN [place] 00 THE Medical MORNING Branch AND 1 TABLET IN THE EVENING bumetanide 3-0 Yes 1mg TAKE 1 [facility] rs 1 mg tablet 1-12 TABLET BY ity of 00:00: MOUTH IN [place] 00 THE Medical MORNING Branch AND 1 TABLET IN THE EVENING bumetanide 3-0 Yes 1mg TAKE 1 [facility] rs 1 mg tablet 1-12 TABLET BY ity of 00:00: MOUTH IN [place] 00 THE Medical MORNING Branch AND 1 TABLET IN THE EVENING bumetanide 3-0 Yes 1mg TAKE 1 [facility] rs 1 mg tablet 1-12 TABLET BY ity of 00:00: MOUTH IN [place] 00 THE Medical MORNING Branch AND 1 TABLET IN THE EVENING bumetanide 3-0 Yes 1mg TAKE 1 [facility] 1 mg tablet 1-12 TABLET BY ity of 00:00: MOUTH IN [place] 00 THE Medical MORNING Branch AND 1 TABLET IN THE EVENING bumetanide 3-0 Yes 1mg TAKE 1 [facility] rs 1 mg tablet 1-12 TABLET BY ity of 00:00: MOUTH IN [place] 00 THE Medical MORNING Branch AND 1 TABLET IN THE EVENING bumetanide 2022-0 Yes 1mg TAKE 1 [facility] rs 1 mg tablet 1-12 TABLET BY ity of 00:00: MOUTH IN [place] 00 THE Medical MORNING Branch AND 1 TABLET IN THE EVENING bumetanide 2022-0 Yes 1mg TAKE 1 [facility] rs 1 mg tablet 1-12 TABLET BY ity of 00:00: MOUTH IN [place] 00 THE Medical MORNING Branch AND 1 TABLET IN THE EVENING bumetanide 2022-0 Yes 1mg TAKE 1 [facility] rs 1 mg tablet 1-12 TABLET BY ity of 00:00: MOUTH IN [place] 00 THE Medical MORNING Branch AND 1 TABLET IN THE EVENING bumetanide 2022-0 Yes 1mg TAKE 1 [facility] rs 1 mg tablet 1-12 TABLET BY ity of 00:00: MOUTH IN [place] 00 THE Medical MORNING Branch AND 1 TABLET IN THE EVENING bumetanide 2022-0 Yes 1mg TAKE 1 [facility] rs 1 mg tablet 1-12 TABLET BY ity of 00:00: MOUTH IN [place] 00 THE Medical MORNING Branch AND 1 TABLET IN THE EVENING bumetanide 2022-0 Yes 1mg TAKE 1 [facility] rs 1 mg tablet 1-12 TABLET BY ity of 00:00: MOUTH IN [place] 00 THE Medical MORNING Branch AND 1 TABLET IN THE EVENING bumetanide 2022-0 Yes 1mg TAKE 1 [facility] rs 1 mg tablet 1-12 TABLET BY ity of 00:00: MOUTH IN [place] 00 THE Medical MORNING Branch AND 1 TABLET IN THE EVENING bumetanide 3-0 Yes 1mg TAKE 1 [facility] rs 1 mg tablet 1-12 TABLET BY ity of 00:00: MOUTH IN [place] 00 THE Medical MORNING Branch AND 1 TABLET IN THE EVENING bumetanide 3-0 Yes 1mg TAKE 1 [facility] rs 1 mg tablet 1-12 TABLET BY ity of 00:00: MOUTH IN [place] 00 THE Medical MORNING Branch AND 1 TABLET IN THE EVENING bumetanide 3-0 Yes 1mg TAKE 1 [facility] rs 1 mg tablet 1-12 TABLET BY ity of 00:00: MOUTH IN [place] 00 THE Medical MORNING Branch AND 1 TABLET IN THE EVENING bumetanide 2023-0 Yes 1mg TAKE 1 [facility] rs 1 mg tablet 1-12 TABLET BY ity of 00:00: MOUTH IN [place] 00 THE Medical MORNING Branch AND 1 TABLET IN THE EVENING bumetanide 3-0 Yes 1mg TAKE 1 [facility] 1 mg tablet 1-12 TABLET BY ity of 00:00: MOUTH IN [place] 00 THE Medical MORNING Branch AND 1 TABLET IN THE EVENING bumetanide 3-0 Yes 1mg TAKE 1 [facility] 1 mg tablet 1-12 TABLET BY ity of 00:00: MOUTH IN [place] 00 THE Medical MORNING Branch AND 1 TABLET IN THE EVENING bumetanide 3-0 Yes 1mg TAKE 1 [facility] 1 mg tablet 1-12 TABLET BY ity of 00:00: MOUTH IN [place] 00 THE Medical MORNING Branch AND 1 TABLET IN THE EVENING bumetanide 3-0 Yes 1mg TAKE 1 [facility] rs 1 mg tablet 1-12 TABLET BY ity of 00:00: MOUTH IN [place] 00 THE Medical MORNING Branch AND 1 TABLET IN THE EVENING bumetanide 3-0 Yes 1mg TAKE 1 [facility] rs 1 mg tablet 1-12 TABLET BY ity of 00:00: MOUTH IN [place] THE Medical MORNING Branch AND 1 TABLET IN THE EVENING bumetanide 3-0 Yes 1mg TAKE 1 [facility] rs 1 mg tablet 1-12 TABLET BY ity of 00:00: MOUTH IN [place] 00 THE Medical MORNING Branch AND 1 TABLET IN THE EVENING bumetanide 3-0 Yes 1mg TAKE 1 [facility] rs 1 mg tablet 1-12 TABLET BY ity of 00:00: MOUTH IN [place] 00 THE Medical MORNING Branch AND 1 TABLET IN THE EVENING bumetanide 3-0 Yes 1mg TAKE 1 [facility] rs 1 mg tablet 1-12 TABLET BY ity of 00:00: MOUTH IN [place] 00 THE Medical MORNING Branch AND 1 TABLET IN THE EVENING bumetanide 3-0 Yes 1mg TAKE 1 [facility] rs 1 mg tablet 1-12 TABLET BY ity of 00:00: MOUTH IN [place] 00 THE Medical MORNING Branch AND 1 TABLET IN THE EVENING bumetanide 3-0 Yes 1mg TAKE 1 [facility] rs 1 mg tablet 1-12 TABLET BY ity of 00:00: MOUTH IN [place] 00 THE Medical MORNING Branch AND 1 TABLET IN THE EVENING bumetanide 3-0 Yes 1mg TAKE 1 [facility] rs 1 mg tablet 1-12 TABLET BY ity of 00:00: MOUTH IN [place] 00 THE Medical MORNING Branch AND 1 TABLET IN THE EVENING bumetanide 2022-0 Yes 1mg TAKE 1 [facility] rs 1 mg tablet 1-12 TABLET BY ity of 00:00: MOUTH IN [place] 00 THE Medical MORNING Branch AND 1 TABLET IN THE EVENING bumetanide 2022-0 Yes 1mg TAKE 1 [facility] rs 1 mg tablet 1-12 TABLET BY ity of 00:00: MOUTH IN [place] 00 THE Medical MORNING Branch AND 1 TABLET IN THE EVENING bumetanide 2022-0 Yes 1mg TAKE 1 [facility] rs 1 mg tablet 1-12 TABLET BY ity of 00:00: MOUTH IN [place] 00 THE Medical MORNING Branch AND 1 TABLET IN THE EVENING bumetanide 2022-0 Yes 1mg TAKE 1 [facility] rs 1 mg tablet 1-12 TABLET BY ity of 00:00: MOUTH IN [place] 00 THE Medical MORNING Branch AND 1 TABLET IN THE EVENING bumetanide 2022-0 Yes 1mg TAKE 1 [facility] rs 1 mg tablet 1-12 TABLET BY ity of 00:00: MOUTH IN [place] 00 THE Medical MORNING Branch AND 1 TABLET IN THE EVENING bumetanide 2022-0 Yes 1mg TAKE 1 [facility] rs 1 mg tablet 1-12 TABLET BY ity of 00:00: MOUTH IN [place] 00 THE Medical MORNING Branch AND 1 TABLET IN THE EVENING bumetanide 2022-0 Yes 1mg TAKE 1 [facility] rs 1 mg tablet 1-12 TABLET BY ity of 00:00: MOUTH IN [place] 00 THE Medical MORNING Branch AND 1 TABLET IN THE EVENING bumetanide 2022-0 Yes 1mg TAKE 1 [facility] rs 1 mg tablet 1-12 TABLET BY ity of 00:00: MOUTH IN [place] 00 THE Medical MORNING Branch AND 1 TABLET IN THE EVENING bumetanide 2022-0 Yes 1mg TAKE 1 [facility] rs 1 mg tablet 1-12 TABLET BY ity of 00:00: MOUTH IN [place] 00 THE Medical MORNING Branch AND 1 TABLET IN THE EVENING bumetanide 2022-0 Yes 1mg TAKE 1 [facility] rs 1 mg tablet 1-12 TABLET BY ity of 00:00: MOUTH IN [place] 00 THE Medical MORNING Branch AND 1 TABLET IN THE EVENING bumetanide 2022-0 Yes 1mg TAKE 1 [facility] rs 1 mg tablet 1-12 TABLET BY ity of 00:00: MOUTH IN [place] 00 THE Medical MORNING Branch AND 1 TABLET IN THE EVENING bumetanide 0 Yes 1mg TAKE 1 [facility] rs 1 mg tablet 1-12 TABLET BY ity of 00:00: MOUTH IN [place] 00 THE Medical MORNING Branch AND 1 TABLET IN THE EVENING bumetanide 0 Yes 1mg TAKE 1 [facility] rs 1 mg tablet 1-12 TABLET BY ity of 00:00: MOUTH IN [place] 00 THE Medical MORNING Branch AND 1 TABLET IN THE EVENING bumetanide 2022-0 Yes 1mg TAKE 1 [facility] rs 1 mg tablet 1-12 TABLET BY ity of 00:00: MOUTH IN [place] 00 THE Medical MORNING Branch AND 1 TABLET IN THE EVENING bumetanide 0 Yes 1mg TAKE 1 [facility] rs 1 mg tablet 1-12 TABLET BY ity of 00:00: MOUTH IN [place] 00 THE Medical MORNING Branch AND 1 TABLET IN THE EVENING bumetanide 0 Yes 1mg TAKE 1 [facility] rs 1 mg tablet 1-12 TABLET BY ity of 00:00: MOUTH IN [place] 00 THE Medical MORNING Branch AND 1 TABLET IN THE EVENING bumetanide 0 Yes 1mg TAKE 1 [facility] rs 1 mg tablet 1-12 TABLET BY ity of 00:00: MOUTH IN [place] 00 THE Medical MORNING Branch AND 1 TABLET IN THE EVENING bumetanide 0 Yes 1mg TAKE 1 [facility] rs 1 mg tablet 1-12 TABLET BY ity of 00:00: MOUTH IN [place] 00 THE Medical MORNING Branch AND 1 [...] by ity of tablet 00:00: mouth in [place] 00 the Medical morning. Branch carvediloL 2021-05 Yes 6.25mg Take 1 [facility] vers 6.25 mg 0-11 tablet by ity of tablet 00:00: mouth in [place] the Medical morning Branch and 1 tablet in the evening. Take with meals. meclizine 2021-05 Yes 25mg Take 1 [facility] s 25 mg 0-11 tablet by ity of tablet 00:00: mouth in [place] the Medical morning Branch and 1 tablet at noon and 1 tablet in the evening. amiodarone 2021-05 Yes 200mg Take 1 [facility] ers 200 mg 0-11 tablet by ity of tablet 00:00: mouth in [place] the morning. Branch aspirin 81 2021-05 Yes 81mg Take 1 Un[facility] rs mg EC 0-11 tablet by ity of tablet 00:00: mouth in [place] the morning. Branch carvediloL 2021-05 Yes 6.25mg Take 1 [facility] vers 6.25 mg 0-11 tablet by ity of tablet 00:00: mouth in [place] the morning Branch and 1 tablet in the evening. Take with meals. meclizine 2021-05 Yes 25mg Take 1 [facility] s 25 mg 0-11 tablet by ity of tablet 00:00: mouth in [place] the morning Branch and 1 tablet at noon and 1 tablet in the evening. amiodarone 2021-05 Yes 200mg Take 1 [facility] ers 200 mg 0-11 tablet by ity of tablet 00:00: mouth in [place] the morning. Branch aspirin 81 2021-05 Yes 81mg Take 1 [facility] rs mg EC 0-11 tablet by ity of tablet 00:00: mouth in [place] the . Branch carvediloL 2021-05 Yes 6.25mg Take 1 [facility] vers 6.25 mg 0-11 tablet by ity of tablet 00:00: mouth in [place] the Medical morning Branch and 1 tablet in the evening. Take with meals. meclizine 2021-05 Yes 25mg Take 1 [facility] s 25 mg 0-11 tablet by ity of tablet 00:00: mouth in [place] the Medical morning Branch and 1 tablet at noon and 1 tablet in the evening. amiodarone 2021-05 Yes 200mg Take 1 [facility] ers 200 mg 0-11 tablet by ity of tablet 00:00: mouth in [place] the morning. Branch aspirin 81 2021-05 Yes 81mg Take 1 [facility] rs mg EC 0-11 tablet by ity of tablet 00:00: mouth in [place] the morning. Branch carvediloL 2021-05 Yes 6.25mg Take 1 [facility] vers 6.25 mg 0-11 tablet by ity of tablet 00:00: mouth in [place] the morning Branch and 1 tablet in the evening. Take with meals. meclizine 2021-05 Yes 25mg Take 1 [facility] s 25 mg 0-11 tablet by ity of tablet 00:00: mouth in [place] the Medical morning Branch and 1 tablet at noon and 1 tablet in the evening. amiodarone 2021-05 Yes 200mg Take 1 [facility] ers 200 mg 0-11 tablet by ity of tablet 00:00: mouth in [place] the morning. Branch aspirin 81 2021-05 Yes 81mg Take 1 [facility] rs mg EC 0-11 tablet by ity of tablet 00:00: mouth in [place] the morning. Branch carvediloL 2021-05 Yes 6.25mg Take 1 [facility] vers 6.25 mg 0-11 tablet by [facility] tablet 00:00: mouth in [place] the morning Branch and 1 tablet in the evening. Take with meals. meclizine 2021-05 Yes 25mg Take 1 [facility] 25 mg 0-11 tablet by [facility] tablet 00:00: mouth in [place] the morning Branch and 1 tablet at noon and 1 tablet in the evening. amiodarone 2021-05 Yes 200mg Take 1 [facility] 200 mg 0-11 tablet by [facility] tablet 00:00: mouth in [place] the morning. Branch aspirin 81 2021-05 Yes 81mg Take 1 [facility] mg EC 0-11 tablet by [facility] tablet 00:00: mouth in [place] the morning. Branch carvediloL 2021-05 Yes 6.25mg Take 1 [facility] vers 6.25 mg 0-11 tablet by [facility] tablet 00:00: mouth in [place] the morning Branch and 1 tablet in the evening. Take with meals. meclizine 2021-05 Yes 25mg Take 1 [facility] 25 mg 0-11 tablet by [facility] tablet 00:00: mouth in [place] the morning Branch and 1 tablet at noon and 1 tablet in the evening. amiodarone 2021-05 Yes 200mg Take 1 [facility] 200 mg 0-11 tablet by [facility] tablet 00:00: mouth in [place] the morning. Branch aspirin 81 2021-05 Yes 81mg Take 1 [facility] mg EC 0-11 tablet by [facility] tablet 00:00: mouth in [place] the morning. Branch carvediloL 2021-05 Yes 6.25mg Take 1 [facility] vers 6.25 mg 0-11 tablet by [facility] tablet 00:00: mouth in [place] the Medical morning Branch and 1 tablet in the evening. Take with meals. meclizine 2021-05 Yes 25mg Take 1 [facility] 25 mg 0-11 tablet by [facility] tablet 00:00: mouth in [place] the morning Branch and 1 tablet at noon and 1 tablet in the evening. amiodarone 2021-05 Yes 200mg Take 1 [facility] 200 mg 0-11 tablet by [facility] tablet 00:00: mouth in [place] the morning. Branch aspirin 81 2021-05 Yes 81mg Take 1 [facility] mg EC 0-11 tablet by [facility] tablet 00:00: mouth in [place] the morning. Branch carvediloL 2021-05 Yes 6.25mg Take 1 [facility] vers 6.25 mg 0-11 tablet by [facility] tablet 00:00: mouth in [place] the morning Branch and 1 tablet in the evening. Take with meals. meclizine 2021-05 Yes 25mg Take 1 [facility] 25 mg 0-11 tablet by [facility] tablet 00:00: mouth in [place] the morning Branch and 1 tablet at noon and 1 tablet in the evening. amiodarone 2021-05 Yes 200mg Take 1 [facility] 200 mg 0-11 tablet by [facility] tablet 00:00: mouth in [place] the morning. Branch aspirin 81 2021-05 Yes 81mg Take 1 [facility] mg EC 0-11 tablet by [facility] tablet 00:00: mouth in [place] the morning. Branch carvediloL 2021-05 Yes 6.25mg Take 1 [facility] vers 6.25 mg 0-11 tablet by [facility] tablet 00:00: mouth in [place] the morning Branch and 1 tablet in the evening. Take with meals. meclizine 2021-05 Yes 25mg Take 1 [facility] 25 mg 0-11 tablet by [facility] tablet 00:00: mouth in [place] the Medical morning Branch and 1 tablet at noon and 1 tablet in the evening. amiodarone 2021-05 Yes 200mg Take 1 [facility] 200 mg 0-11 tablet by [facility] tablet 00:00: mouth in [place] the morning. Branch aspirin 81 2021-05 Yes 81mg Take 1 [facility] mg EC 0-11 tablet by [facility] tablet 00:00: mouth in [place] the morning. Branch carvediloL 2021-05 Yes 6.25mg Take 1 [facility] vers 6.25 mg 0-11 tablet by [facility] tablet 00:00: mouth in [place] the Medical morning Branch and 1 tablet in the evening. Take with meals. meclizine 2021-05 Yes 25mg Take 1 [facility] 25 mg 0-11 tablet by [facility] tablet 00:00: mouth in [place] the morning Branch and 1 tablet at noon and 1 tablet in the evening. amiodarone 2021-05 Yes 200mg Take 1 [facility] 200 mg 0-11 tablet by [facility] tablet 00:00: mouth in [place] the morning. Branch aspirin 81 2021-05 Yes 81mg Take 1 [facility] mg EC 0-11 tablet by [facility] tablet 00:00: mouth in [place] the morning. Branch carvediloL 2021-05 Yes 6.25mg Take 1 [facility] vers 6.25 mg 0-11 tablet by [facility] tablet 00:00: mouth in [place] the morning Branch and 1 tablet in the evening. Take with meals. meclizine 2021-05 Yes 25mg Take 1 [facility] 25 mg 0-11 tablet by [facility] tablet 00:00: mouth in [place] the Medical morning Branch and 1 tablet at noon and 1 tablet in the evening. amiodarone 2021-05 Yes 200mg Take 1 [facility] 200 mg 0-11 tablet by [facility] tablet 00:00: mouth in [place] the morning. Branch aspirin 81 2021-05 Yes 81mg Take 1 [facility] mg EC 0-11 tablet by [facility] tablet 00:00: mouth in [place] the morning. Branch carvediloL 2021-05 Yes 6.25mg Take 1 [facility] 6.25 mg 0-11 tablet by [facility] tablet 00:00: mouth in [place] the Medical morning Branch and 1 tablet in the evening. Take with meals. meclizine 2021-05 Yes 25mg Take 1 [facility] 25 mg 0-11 tablet by [facility] tablet 00:00: mouth in [place] the Medical morning Branch and 1 tablet at noon and 1 tablet in the evening. amiodarone 2021-05 Yes 200mg Take 1 [facility] 200 mg 0-11 tablet by [facility] of tablet 00:00: mouth in [place] the morning. Branch aspirin 81 2021-05 Yes 81mg Take 1 [facility] mg EC 0-11 tablet by [facility] tablet 00:00: mouth in [place] the morning. Branch carvediloL 2021-05 Yes 6.25mg Take 1 [facility] 6.25 mg 0-11 tablet by [facility] tablet 00:00: mouth in [place] the Medical morning Branch and 1 tablet in the evening. Take with meals. meclizine 2021-05 Yes 25mg Take 1 [facility] 25 mg 0-11 tablet by [facility] tablet 00:00: mouth in [place] the Medical morning Branch and 1 tablet at noon and 1 tablet in the evening. amiodarone 2021-05 Yes 200mg Take 1 [facility] 200 mg 0-11 tablet by [facility] of tablet 00:00: mouth in [place] the morning. Branch aspirin 81 2021-05 Yes 81mg Take 1 [facility] mg EC 0-11 tablet by [facility] of tablet 00:00: mouth in [place] the morning. Branch carvediloL 2021-05 Yes 6.25mg Take 1 [facility] 6.25 mg 0-11 tablet by [facility] tablet 00:00: mouth in [place] the Medical morning Branch and 1 tablet in the evening. Take with meals. meclizine 2021-05 Yes 25mg Take 1 [facility] 25 mg 0-11 tablet by [facility] tablet 00:00: mouth in [place] the Medical morning Branch and 1 tablet at noon and 1 tablet in the evening. amiodarone 2021-05 Yes 200mg Take 1 [facility] 200 mg 0-11 tablet by [facility] tablet 00:00: mouth in [place] the morning. Branch aspirin 81 2021-05 Yes 81mg Take 1 [facility] mg EC 0-11 tablet by [facility] tablet 00:00: mouth in [place] the . Branch carvediloL 2021-05 Yes 6.25mg Take 1 [facility] 6.25 mg 0-11 tablet by [facility] tablet 00:00: mouth in [place] the morning Branch and 1 tablet in the evening. Take with meals. meclizine 2021-05 Yes 25mg Take 1 [facility] 25 mg 0-11 tablet by [facility] tablet 00:00: mouth in [place] the Medical morning Branch and 1 tablet at noon and 1 tablet in the evening. amiodarone 2021-05 Yes 200mg Take 1 [facility] 200 mg 0-11 tablet by [facility] tablet 00:00: mouth in [place] the morning. Branch aspirin 81 2021-05 Yes 81mg Take 1 [facility] mg EC 0-11 tablet by [facility] tablet 00:00: mouth in [place] the . Branch carvediloL 2021-05 Yes 6.25mg Take 1 [facility] 6.25 mg 0-11 tablet by [facility] tablet 00:00: mouth in [place] the morning Branch and 1 tablet in the evening. Take with meals. meclizine 2021-05 Yes 25mg Take 1 [facility] 25 mg 0-11 tablet by [facility] tablet 00:00: mouth in [place] the morning Branch and 1 tablet at noon and 1 tablet in the evening. amiodarone 2021-05 Yes 200mg Take 1 [facility] 200 mg 0-11 tablet by [facility] tablet 00:00: mouth in [place] the morning. Branch aspirin 81 2021-05 Yes 81mg Take 1 [facility] mg EC 0-11 tablet by [facility] tablet 00:00: mouth in [place] the morning. Branch carvediloL 2021-05 Yes 6.25mg Take 1 [facility] vers 6.25 mg 0-11 tablet by [facility] tablet 00:00: mouth in [place] the morning Branch and 1 tablet in the evening. Take with meals. meclizine 2021-05 Yes 25mg Take 1 [facility] 25 mg 0-11 tablet by [facility] tablet 00:00: mouth in [place] the morning Branch and 1 tablet at noon and 1 tablet in the evening. amiodarone 2021-05 Yes 200mg Take 1 [facility] 200 mg 0-11 tablet by [facility] tablet 00:00: mouth in [place] the morning. Branch aspirin 81 2021-05 Yes 81mg Take 1 [facility] mg EC 0-11 tablet by [facility] tablet 00:00: mouth in [place] the morning. Branch carvediloL 2021-05 Yes 6.25mg Take 1 [facility] 6.25 mg 0-11 tablet by [facility] tablet 00:00: mouth in [place] the Medical morning Branch and 1 tablet in the evening. Take with meals. meclizine 2021-05 Yes 25mg Take 1 [facility] 25 mg 0-11 tablet by [facility] tablet 00:00: mouth in [place] the morning Branch and 1 tablet at noon and 1 tablet in the evening. amiodarone 2021-05 Yes 200mg Take 1 [facility] 200 mg 0-11 tablet by [facility] tablet 00:00: mouth in [place] the morning. Branch aspirin 81 2021-05 Yes 81mg Take 1 [facility] mg EC 0-11 tablet by [facility] tablet 00:00: mouth in [place] the morning. Branch carvediloL 2021-05 Yes 6.25mg Take 1 [facility] 6.25 mg 0-11 tablet by [facility] tablet 00:00: mouth in [place] the morning Branch and 1 tablet in the evening. Take with meals. meclizine 2021-05 Yes 25mg Take 1 [facility] 25 mg 0-11 tablet by [facility] tablet 00:00: mouth in [place] the morning Branch and 1 tablet at noon and 1 tablet in the evening. amiodarone 2021-05 Yes 200mg Take 1 [facility] 200 mg 0-11 tablet by [facility] tablet 00:00: mouth in [place] the morning. Branch aspirin 81 2021-05 Yes 81mg Take 1 [facility] mg EC 0-11 tablet by [facility] tablet 00:00: mouth in [place] the morning. Branch carvediloL 2021-05 Yes 6.25mg Take 1 [facility] 6.25 mg 0-11 tablet by [facility] tablet 00:00: mouth in [place] the morning Branch and 1 tablet in the evening. Take with meals. meclizine 2021-05 Yes 25mg Take 1 [facility] 25 mg 0-11 tablet by [facility] tablet 00:00: mouth in [place] the morning Branch and 1 tablet at noon and 1 tablet in the evening. amiodarone 2021-05 Yes 200mg Take 1 [facility] 200 mg 0-11 tablet by [facility] tablet 00:00: mouth in [place] the morning. Branch aspirin 81 2021-05 Yes 81mg Take 1 [facility] mg EC 0-11 tablet by [facility] tablet 00:00: mouth in [place] the morning. Branch carvediloL 2021-05 Yes 6.25mg Take 1 [facility] 6.25 mg 0-11 tablet by [facility] tablet 00:00: mouth in [place] the morning Branch and 1 tablet in the evening. Take with meals. meclizine 2021-05 Yes 25mg Take 1 [facility] 25 mg 0-11 tablet by [facility] tablet 00:00: mouth in [place] the morning Branch and 1 tablet at noon and 1 tablet in the evening. amiodarone 2021-05 Yes 200mg Take 1 [facility] 200 mg 0-11 tablet by [facility] tablet 00:00: mouth in [place] the morning. Branch aspirin 81 2021-05 Yes 81mg Take 1 [facility] mg EC 0-11 tablet by [facility] tablet 00:00: mouth in [place] the morning. Branch carvediloL 2021-05 Yes 6.25mg Take 1 [facility] 6.25 mg 0-11 tablet by [facility] tablet 00:00: mouth in [place] the morning Branch and 1 tablet in the evening. Take with meals. meclizine 2021-05 Yes 25mg Take 1 [facility] 25 mg 0-11 tablet by [facility] tablet 00:00: mouth in [place] the Medical morning Branch and 1 tablet at noon and 1 tablet in the evening. amiodarone 2021-05 Yes 200mg Take 1 [facility] 200 mg 0-11 tablet by [facility] tablet 00:00: mouth in [place] the morning. Branch aspirin 81 2021-05 Yes 81mg Take 1 [facility] mg EC 0-11 tablet by [facility] tablet 00:00: mouth in [place] the morning. Branch carvediloL 2021-05 Yes 6.25mg Take 1 [facility] 6.25 mg 0-11 tablet by [facility] tablet 00:00: mouth in [place] the Medical morning Branch and 1 tablet in the evening. Take with meals. meclizine 2021-05 Yes 25mg Take 1 [facility] 25 mg 0-11 tablet by [facility] tablet 00:00: mouth in [place] the Medical morning Branch and 1 tablet at noon and 1 tablet in the evening. amiodarone 2021-05 Yes 200mg Take 1 [facility] 200 mg 0-11 tablet by [facility] tablet 00:00: mouth in [place] the morning. Branch aspirin 81 2021-05 Yes 81mg Take 1 [facility] mg EC 0-11 tablet by [facility] of tablet 00:00: mouth in [place] the morning. Branch carvediloL 2021-05 Yes 6.25mg Take 1 [facility] 6.25 mg 0-11 tablet by [facility] tablet 00:00: mouth in [place] the Medical morning Branch and 1 tablet in the evening. Take with meals. meclizine 2021-05 Yes 25mg Take 1 [facility] 25 mg 0-11 tablet by [facility] tablet 00:00: mouth in [place] the Medical morning Branch and 1 tablet at noon and 1 tablet in the evening. amiodarone 2021-05 Yes 200mg Take 1 [facility] 200 mg 0-11 tablet by [facility] tablet 00:00: mouth in [place] the morning. Branch aspirin 81 2021-05 Yes 81mg Take 1 [facility] mg EC 0-11 tablet by [facility] of tablet 00:00: mouth in [place] the morning. Branch carvediloL 2021-05 Yes 6.25mg Take 1 [facility] 6.25 mg 0-11 tablet by [facility] of tablet 00:00: mouth in [place] the Medical morning Branch and 1 tablet in the evening. Take with meals. meclizine 2021-05 Yes 25mg Take 1 [facility] 25 mg 0-11 tablet by [facility] tablet 00:00: mouth in [place] the Medical morning Branch and 1 tablet at noon and 1 tablet in the evening. amiodarone 2021-05 Yes 200mg Take 1 [facility] 200 mg 0-11 tablet by [facility] tablet 00:00: mouth in [place] the morning. Branch aspirin 81 2021-05 Yes 81mg Take 1 [facility] mg EC 0-11 tablet by [facility] tablet 00:00: mouth in [place] the . Branch carvediloL 2021-05 Yes 6.25mg Take 1 [facility] 6.25 mg 0-11 tablet by [facility] tablet 00:00: mouth in [place] the Medical morning Branch and 1 tablet in the evening. Take with meals. meclizine 2021-05 Yes 25mg Take 1 [facility] 25 mg 0-11 tablet by [facility] tablet 00:00: mouth in [place] the Medical morning Branch and 1 tablet at noon and 1 tablet in the evening. amiodarone 2021-05 Yes 200mg Take 1 [facility] 200 mg 0-11 tablet by [facility] tablet 00:00: mouth in [place] the morning. Branch aspirin 81 2021-05 Yes 81mg Take 1 [facility] mg EC 0-11 tablet by [facility] tablet 00:00: mouth in [place] the morning. Branch carvediloL 2021-05 Yes 6.25mg Take 1 [facility] 6.25 mg 0-11 tablet by [facility] tablet 00:00: mouth in [place] the morning Branch and 1 tablet in the evening. Take with meals. meclizine 2021-05 Yes 25mg Take 1 [facility] 25 mg 0-11 tablet by [facility] tablet 00:00: mouth in [place] the Medical morning Branch and 1 tablet at noon and 1 tablet in the evening. amiodarone 2021-05 Yes 200mg Take 1 [facility] 200 mg 0-11 tablet by [facility] tablet 00:00: mouth in [place] the morning. Branch aspirin 81 2021-05 Yes 81mg Take 1 [facility] mg EC 0-11 tablet by [facility] tablet 00:00: mouth in [place] the morning. Branch carvediloL 2021-05 Yes 6.25mg Take 1 [facility] 6.25 mg 0-11 tablet by [facility] tablet 00:00: mouth in [place] the Medical morning Branch and 1 tablet in the evening. Take with meals. meclizine 2021-05 Yes 25mg Take 1 [facility] 25 mg 0-11 tablet by [facility] tablet 00:00: mouth in [place] the Medical morning Branch and 1 tablet at noon and 1 tablet in the evening. amiodarone 2021-05 Yes 200mg Take 1 [facility] 200 mg 0-11 tablet by [facility] tablet 00:00: mouth in [place] the . Branch aspirin 81 2021-05 Yes 81mg Take 1 [facility] mg EC 0-11 tablet by [facility] tablet 00:00: mouth in [place] the morning. Branch carvediloL 2021-05 Yes 6.25mg Take 1 [facility] 6.25 mg 0-11 tablet by [facility] tablet 00:00: mouth in [place] the morning Branch and 1 tablet in the evening. Take with meals. meclizine 2021-05 Yes 25mg Take 1 [facility] 25 mg 0-11 tablet by [facility] tablet 00:00: mouth in [place] the morning Branch and 1 tablet at noon and 1 tablet in the evening. amiodarone 2021-05 Yes 200mg Take 1 [facility] 200 mg 0-11 tablet by [facility] tablet 00:00: mouth in [place] the . Branch aspirin 81 2021-05 Yes 81mg Take 1 [facility] mg EC 0-11 tablet by [facility] tablet 00:00: mouth in [place] the . Branch carvediloL 2021-05 Yes 6.25mg Take 1 [facility] 6.25 mg 0-11 tablet by [facility] tablet 00:00: mouth in [place] the Branch and 1 tablet in the evening. Take with meals. meclizine 2021-05 Yes 25mg Take 1 [facility] 25 mg 0-11 tablet by [facility] tablet 00:00: mouth in [place] the morning Branch and 1 tablet at noon and 1 tablet in the evening. aspirin 81 2021-05 Yes 81mg Take 1 [facility] mg EC 0-11 tablet by [facility] of tablet 00:00: mouth in [place] the morning. Branch carvediloL 2021-05 Yes 6.25mg Take 1 [facility] 6.25 mg 0-11 tablet by [facility] tablet 00:00: mouth in [place] the morning Branch and 1 tablet in the evening. Take with meals. meclizine 2021-05 Yes 25mg Take 1 [facility] 25 mg 0-11 tablet by [facility] of tablet 00:00: mouth in [place] the Medical morning Branch and 1 tablet at noon and 1 tablet in the evening. aspirin 81 2021-05 Yes 81mg Take 1 [facility] mg EC 0-11 tablet by [facility] of tablet 00:00: mouth in [place] [address] the morning. Branch carvediloL 2021-05 Yes 6.25mg Take 1 [facility] vers 6.25 mg 0-11 tablet by [facility] of tablet 00:00: mouth in [place] [address] the Medical morning [place] and 1 tablet in the evening. Take with meals. meclizine 2021-05 Yes 25mg Take 1 [facility] 25 mg 0-11 tablet by [facility] of tablet 00:00: mouth in [place] [address] the Medical morning Branch and 1 tablet at noon and 1 tablet in the evening. aspirin 81 2021-05 Yes 81mg Take 1 [facility] mg EC 0-11 tablet by [facility] of tablet 00:00: mouth in [place] [address] the morning. Branch carvediloL 2021-05 Yes 6.25mg Take 1 [facility] vers 6.25 mg 0-11 tablet by [facility] of tablet 00:00: mouth in [place] [address] the [facility] and 1 tablet in the evening. Take with meals. meclizine 2021-05 Yes 25mg Take 1 [facility] 25 mg 0-11 tablet by [facility] of tablet 00:00: mouth in [place] [address] the [facility] and 1 tablet at noon and 1 tablet in the evening. aspirin 81 2021-05 Yes 81mg Take 1 [facility] mg EC 0-11 tablet by [facility] of tablet 00:00: mouth in [place] [address] the morning. Branch meclizine 2021-05 Yes 25mg Take 1 [facility] 25 mg 0-11 tablet by [facility] of tablet 00:00: mouth in [place] [address] the [facility] and 1 tablet at noon and 1 tablet in the evening. aspirin 2021-05 Yes 81mg Take 1 [facility] (NOEL LOW 0-11 tablet by [facility] of DOSE 00:00: mouth in [place] ASPIRIN) 81 00 the Medical [facility] morning. Branch tablet carvediloL 2021-05 Yes 6.25mg Take 1 [facility] vers 6.25 mg 0-11 tablet by [facility] of tablet 00:00: mouth in [place] [address] the [facility] and 1 tablet in the evening. Take with meals. meclizine 2021-05 Yes 25mg Take 1 [facility] 25 mg 0-11 tablet by [facility] of tablet 00:00: mouth in [place] 00 the Medical morning Branch and 1 tablet at noon and 1 tablet in the evening. amiodarone 2021-05 Yes 200mg Take 1 [facility] 200 mg 0-11 tablet by [facility] of tablet 00:00: mouth in [place] 00 the Medical morning. Branch aspirin 2021-05 Yes 81mg Take 1 [facility] (NOEL LOW 0-11 tablet by [facility] of DOSE 00:00: mouth in [place] ASPIRIN) 81 00 the Medical mg [facility] morning. Branch tablet carvediloL 2021-05 Yes 6.25mg Take 1 [facility] vers 6.25 mg 0-11 tablet by [facility] of tablet 00:00: mouth in [place] 00 the Medical morning Branch and 1 tablet in the evening. Take with meals. meclizine 2021-05 Yes 25mg Take 1 [facility] 25 mg 0-11 tablet by [facility] of tablet 00:00: mouth in [place] 00 the Medical morning Branch and 1 tablet at noon and 1 tablet in the evening. amiodarone 2021-05 Yes 200mg Take 1 [facility] 200 mg 0-11 tablet by [facility] of tablet 00:00: mouth in [place] 00 the Medical morning. Branch aspirin 2021-05 Yes 81mg Take 1 [facility] (NOEL LOW 0-11 tablet by [facility] of DOSE 00:00: mouth in [place] ASPIRIN) 81 00 the Medical mg [facility] morning. Branch tablet carvediloL 2021-05 Yes 6.25mg Take 1 [facility] vers 6.25 mg 0-11 tablet by [facility] of tablet 00:00: mouth in [place] 00 the Medical morning Branch and 1 tablet in the evening. Take with meals. meclizine 2021-05 Yes 25mg Take 1 [facility] 25 mg 0-11 tablet by [facility] of tablet 00:00: mouth in [place] 00 the Medical morning Branch and 1 tablet at noon and 1 tablet in the evening. amiodarone 2021-05 Yes 200mg Take 1 [facility] 200 mg 0-11 tablet by [facility] of tablet 00:00: mouth in [place] 00 the Medical morning. Branch aspirin 2021-05 Yes 81mg Take 1 [facility] (NOEL LOW 0-11 tablet by [facility] of DOSE 00:00: mouth in [place] ASPIRIN) 81 00 the Medical mg [facility] morning. Branch tablet carvediloL 2021-05 Yes 6.25mg Take 1 [facility] vers 6.25 mg 0-11 tablet by [facility] of tablet 00:00: mouth in [place] 00 the Medical morning Branch and 1 tablet in the evening. Take with meals. meclizine 2021-05 Yes 25mg Take 1 [facility] 25 mg 0-11 tablet by [facility] of tablet 00:00: mouth in [place] 00 the Medical morning Branch and 1 tablet at noon and 1 tablet in the evening. amiodarone 2021-05 Yes 200mg Take 1 [facility] 200 mg 0-11 tablet by [facility] of tablet 00:00: mouth in [place] 00 the Medical morning. Branch aspirin 2021-05 Yes 81mg Take 1 [facility] (NOEL LOW 0-11 tablet by [facility] of DOSE 00:00: mouth in [place] ASPIRIN) 81 00 the Medical mg [facility] morning. Branch tablet carvediloL 2021-05 Yes 6.25mg Take 1 [facility] vers 6.25 mg 0-11 tablet by [facility] of tablet 00:00: mouth in [place] 00 the Medical morning Branch and 1 tablet in the evening. Take with meals. meclizine 2021-05 Yes 25mg Take 1 [facility] 25 mg 0-11 tablet by [facility] of tablet 00:00: mouth in [place] 00 the Medical morning Branch and 1 tablet at noon and 1 tablet in the evening. amiodarone 2021-05 Yes 200mg Take 1 [facility] 200 mg 0-11 tablet by [facility] of tablet 00:00: mouth in [place] 00 the Medical morning. Branch aspirin 2021-05 Yes 81mg Take 1 [facility] (NOEL LOW 0-11 tablet by [facility] of DOSE 00:00: mouth in [place] ASPIRIN) 81 00 the Medical mg [facility] morning. Branch tablet carvediloL 2021-05 Yes 6.25mg Take 1 [facility] 6.25 mg 0-11 tablet by [facility] of tablet 00:00: mouth in [place] 00 the Medical morning Branch and 1 tablet in the evening. Take with meals. meclizine 2021-05 Yes 25mg Take 1 [facility] 25 mg 0-11 tablet by [facility] of tablet 00:00: mouth in [place] 00 the Medical morning Branch and 1 tablet at noon and 1 tablet in the evening. amiodarone 2021-05 Yes 200mg Take 1 [facility] 200 mg 0-11 tablet by [facility] of tablet 00:00: mouth in [place] 00 the Medical morning. Branch aspirin 2021-05 Yes 81mg Take 1 [facility] (NOEL LOW 0-11 tablet by [facility] of DOSE 00:00: mouth in [place] ASPIRIN) 81 00 the Medical mg [facility] morning. Branch tablet carvediloL 2021-05 Yes 6.25mg Take 1 [facility] vers 6.25 mg 0-11 tablet by [facility] of tablet 00:00: mouth in [place] 00 the Medical morning Branch and 1 tablet in the evening. Take with meals. meclizine 2021-05 Yes 25mg Take 1 [facility] 25 mg 0-11 tablet by [facility] of tablet 00:00: mouth in [place] 00 the Medical morning Branch and 1 tablet at noon and 1 tablet in the evening. amiodarone 2021-05 Yes 200mg Take 1 [facility] 200 mg 0-11 tablet by [facility] of tablet 00:00: mouth in [place] 00 the Medical morning. Branch aspirin 2021-05 Yes 81mg Take 1 [facility] (NOEL LOW 0-11 tablet by [facility]y of DOSE 00:00: mouth in [place] ASPIRIN) 81 00 the Medical mg [facility] morning. Branch tablet carvediloL 2021-05 Yes 6.25mg Take 1 [facility] vers 6.25 mg 0-11 tablet by [facility] of tablet 00:00: mouth in [place] 00 the Medical morning Branch and 1 tablet in the evening. Take with meals. meclizine 2021-05 Yes 25mg Take 1 [facility] 25 mg 0-11 tablet by [facility] of tablet 00:00: mouth in [place] 00 the Medical morning Branch and 1 tablet at noon and 1 tablet in the evening. amiodarone 2021-05 Yes 200mg Take 1 [facility] 200 mg 0-11 tablet by [facility] of tablet 00:00: mouth in [place] 00 the Medical morning. Branch aspirin 2021-05 Yes 81mg Take 1 [facility] (NOEL LOW 0-11 tablet by [facility] of DOSE 00:00: mouth in [place] ASPIRIN) 81 00 the Medical mg [facility] morning. Branch tablet carvediloL 2021-05 Yes 6.25mg Take 1 [facility] vers 6.25 mg 0-11 tablet by [facility] of tablet 00:00: mouth in [place] 00 the Medical morning Branch and 1 tablet in the evening. Take with meals. meclizine 2021-05 Yes 25mg Take 1 [facility] 25 mg 0-11 tablet by [facility] of tablet 00:00: mouth in [place] 00 the Medical morning Branch and 1 tablet at noon and 1 tablet in the evening. amiodarone 2021-05 Yes 200mg Take 1 [facility] 200 mg 0-11 tablet by [facility] of tablet 00:00: mouth in [place] 00 the Medical morning. Branch aspirin 2021-05 Yes 81mg Take 1 [facility] (NOEL LOW 0-11 tablet by [facility] of DOSE 00:00: mouth in [place] ASPIRIN) 81 00 the Medical mg [facility] morning. Branch tablet carvediloL 2021-05 Yes 6.25mg Take 1 [facility] vers 6.25 mg 0-11 tablet by [facility] of tablet 00:00: mouth in [place] 00 the Medical morning Branch and 1 tablet in the evening. Take with meals. meclizine 2021-05 Yes 25mg Take 1 [facility] 25 mg 0-11 tablet by [facility] tablet 00:00: mouth in [place] 00 the Medical morning Branch and 1 tablet at noon and 1 tablet in the evening. amiodarone 2021-05 Yes 200mg Take 1 [facility] 200 mg 0-11 tablet by [facility] tablet 00:00: mouth in [place] 00 the Medical morning. Branch aspirin 2021-05 Yes 81mg Take 1 [facility] (NOEL LOW 0-11 tablet by [facility] of DOSE 00:00: mouth in [place] ASPIRIN) 81 00 the Medical mg EC morning. Branch tablet carvediloL 2021-05 Yes 6.25mg Take 1 [facility] vers 6.25 mg 0-11 tablet by [facility] of tablet 00:00: mouth in [place] 00 the Medical morning Branch and 1 tablet in the evening. Take with meals. meclizine 2021-05 Yes 25mg Take 1 [facility] 25 mg 0-11 tablet by [facility] of tablet 00:00: mouth in [place] 00 the Medical morning Branch and 1 tablet at noon and 1 tablet in the evening. amiodarone 2021-05 Yes 200mg Take 1 [facility] 200 mg 0-11 tablet by [facility] of tablet 00:00: mouth in [place] 00 the Medical morning. Branch aspirin 2021-05 Yes 81mg Take 1 [facility] (NOEL LOW 0-11 tablet by [facility] of DOSE 00:00: mouth in [place] ASPIRIN) 81 00 the Medical mg EC morning. Branch tablet carvediloL 2021-05 Yes 6.25mg Take 1 [facility] vers 6.25 mg 0-11 tablet by [facility] tablet 00:00: mouth in [place] 00 the Medical morning Branch and 1 tablet in the evening. Take with meals. meclizine 2021-05 Yes 25mg Take 1 [facility] 25 mg 0-11 tablet by [facility] of tablet 00:00: mouth in [place] 00 the Medical morning Branch and 1 tablet at noon and 1 tablet in the evening. amiodarone 2021-05 Yes 200mg Take 1 [facility] 200 mg 0-11 tablet by [facility] of tablet 00:00: mouth in [place] 00 the Medical morning. Branch aspirin 2021-05 Yes 81mg Take 1 [facility] (NOEL LOW 0-11 tablet by [facility] of DOSE 00:00: mouth in [place] ASPIRIN) 81 00 the Medical mg EC morning. Branch tablet carvediloL 2021-05 Yes 6.25mg Take 1 [facility] vers 6.25 mg 0-11 tablet by [facility] of tablet 00:00: mouth in [place] 00 the Medical morning Branch and 1 tablet in the evening. Take with meals. meclizine 2021-05 Yes 25mg Take 1 [facility] 25 mg 0-11 tablet by [facility] of tablet 00:00: mouth in [place] the Medical morning Branch and 1 tablet at noon and 1 tablet in the evening. amiodarone 2021-05 Yes 200mg Take 1 [facility] 200 mg 0-11 tablet by [facility] of tablet 00:00: mouth in [place] the Medical morning. Branch aspirin 2021-05 Yes 81mg Take 1 [facility] (NOEL LOW 0-11 tablet by [facility] of DOSE 00:00: mouth in [place] ASPIRIN) 81 00 the Medical mg EC morning. Branch tablet carvediloL 2021-05 Yes 6.25mg Take 1 [facility] vers 6.25 mg 0-11 tablet by [facility] of tablet 00:00: mouth in [place] 00 the Medical morning Branch and 1 tablet in the evening. Take with meals. meclizine 2021-05 Yes 25mg Take 1 [facility] 25 mg 0-11 tablet by [facility] of tablet 00:00: mouth in [place] 00 the Medical morning Branch and 1 tablet at noon and 1 tablet in the evening. amiodarone 2021-05 Yes 200mg Take 1 [facility] 200 mg 0-11 tablet by [facility] of tablet 00:00: mouth in [place] 00 the Medical morning. Branch aspirin 81 2021-05 Yes 81mg Take 1 [facility] mg EC 0-11 tablet by [facility] of tablet 00:00: mouth in [place] the . Branch carvediloL 2021-05 Yes 6.25mg Take 1 [facility] 6.25 mg 0-11 tablet by [facility] of tablet 00:00: mouth in [place] the morning Branch and 1 tablet in the evening. Take with meals. meclizine 2021-05 Yes 25mg Take 1 [facility] 25 mg 0-11 tablet by [facility] of tablet 00:00: mouth in [place] the morning Branch and 1 tablet at noon and 1 tablet in the evening. amiodarone 2021-05 Yes 200mg Take 1 [facility] 200 mg 0-11 tablet by [facility] of tablet 00:00: mouth in [place] the . Branch aspirin 81 2021-05 Yes 81mg Take 1 [facility] mg EC 0-11 tablet by [facility] of tablet 00:00: mouth in [place] the . Branch carvediloL 2021-05 Yes 6.25mg Take 1 [facility] 6.25 mg 0-11 tablet by [facility] of tablet 00:00: mouth in [place] the Branch and 1 tablet in the evening. Take with meals. meclizine 2021-05 Yes 25mg Take 1 [facility] 25 mg 0-11 tablet by [facility] of tablet 00:00: mouth in [place] the Branch and 1 tablet at noon and 1 tablet in the evening. amiodarone 2021-05 Yes 200mg Take 1 [facility] 200 mg 0-11 tablet by [facility] of tablet 00:00: mouth in [place] the morning. Branch aspirin 81 2021-05 Yes 81mg Take 1 [facility] mg EC 0-11 tablet by [facility] of tablet 00:00: mouth in [place] the morning. Branch carvediloL 2021-05 Yes 6.25mg Take 1 [facility] 6.25 mg 0-11 tablet by [facility] of tablet 00:00: mouth in [place] the morning Branch and 1 tablet in the evening. Take with meals. meclizine 2021-05 Yes 25mg Take 1 [facility] 25 mg 0-11 tablet by [facility] of tablet 00:00: mouth in [place] the morning Branch and 1 tablet at noon and 1 tablet in the evening. amiodarone 2021-05 Yes 200mg Take 1 [facility] 200 mg 0-11 tablet by [facility] of tablet 00:00: mouth in [place] the morning. Branch aspirin 81 2021-05 Yes 81mg Take 1 [facility] mg EC 0-11 tablet by [facility] of tablet 00:00: mouth in [place] the morning. Branch carvediloL 2021-05 Yes 6.25mg Take 1 [facility] vers 6.25 mg 0-11 tablet by [facility] of tablet 00:00: mouth in [place] the morning Branch and 1 tablet in the evening. Take with meals. meclizine 2021-05 Yes 25mg Take 1 [facility] 25 mg 0-11 tablet by [facility] of tablet 00:00: mouth in [place] the morning Branch and 1 tablet at noon and 1 tablet in the evening. amiodarone 2021-05 Yes 200mg Take 1 [facility] 200 mg 0-11 tablet by [facility] of tablet 00:00: mouth in [place] the morning. Branch aspirin 81 2021-05 Yes 81mg Take 1 [facility] mg EC 0-11 tablet by [facility] of tablet 00:00: mouth in [place] the morning. Branch carvediloL 2021-05 Yes 6.25mg Take 1 [facility] vers 6.25 mg 0-11 tablet by [facility] of tablet 00:00: mouth in [place] the morning Branch and 1 tablet in the evening. Take with meals. meclizine 2021-05 Yes 25mg Take 1 [facility] 25 mg 0-11 tablet by [facility] of tablet 00:00: mouth in [place] the morning Branch and 1 tablet at noon and 1 tablet in the evening. amiodarone 2021-05 Yes 200mg Take 1 [facility] 200 mg 0-11 tablet by [facility] of tablet 00:00: mouth in [place] the morning. Branch aspirin 81 2021-05 Yes 81mg Take 1 [facility] mg EC 0-11 tablet by [facility] of tablet 00:00: mouth in [place] the morning. Branch carvediloL 2021-05 Yes 6.25mg Take 1 [facility] vers 6.25 mg 0-11 tablet by [facility] of tablet 00:00: mouth in [place] the morning Branch and 1 tablet in the evening. Take with meals. meclizine 2021-05 Yes 25mg Take 1 [facility] 25 mg 0-11 tablet by [facility] of tablet 00:00: mouth in [place] the Medical morning Branch and 1 tablet at noon and 1 tablet in the evening. amiodarone 2021-05 Yes 200mg Take 1 [facility] 200 mg 0-11 tablet by [facility] of tablet 00:00: mouth in [place] the morning. Branch aspirin 81 2021-05 Yes 81mg Take 1 [facility] mg EC 0-11 tablet by [facility] of tablet 00:00: mouth in [place] the morning. Branch carvediloL 2021-05 Yes 6.25mg Take 1 [facility] vers 6.25 mg 0-11 tablet by [facility] of tablet 00:00: mouth in [place] the Medical morning Branch and 1 tablet in the evening. Take with meals. meclizine 2021-05 Yes 25mg Take 1 [facility] 25 mg 0-11 tablet by [facility] of tablet 00:00: mouth in [place] the Medical morning Branch and 1 tablet at noon and 1 tablet in the evening. amiodarone 2021-05 Yes 200mg Take 1 [facility] 200 mg 0-11 tablet by [facility] of tablet 00:00: mouth in [place] the morning. Branch aspirin 81 2021-05 Yes 81mg Take 1 [facility] mg EC 0-11 tablet by [facility] of tablet 00:00: mouth in [place] the morning. Branch carvediloL 2021-05 Yes 6.25mg Take 1 [facility] vers 6.25 mg 0-11 tablet by [facility] of tablet 00:00: mouth in [place] the Medical morning Branch and 1 tablet in the evening. Take with meals. meclizine 2021-05 Yes 25mg Take 1 [facility] 25 mg 0-11 tablet by [facility] of tablet 00:00: mouth in [place] the Medical morning Branch and 1 tablet at noon and 1 tablet in the evening. amiodarone 2021-05 Yes 200mg Take 1 [facility] 200 mg 0-11 tablet by [facility] of tablet 00:00: mouth in [place] the morning. Branch aspirin 81 2021-05 Yes 81mg Take 1 [facility] mg EC 0-11 tablet by [facility] of tablet 00:00: mouth in [place] the morning. Branch carvediloL 2021-05 Yes 6.25mg Take 1 [facility] 6.25 mg 0-11 tablet by [facility] of tablet 00:00: mouth in [place] the Medical morning Branch and 1 tablet in the evening. Take with meals. meclizine 2021-05 Yes 25mg Take 1 [facility] 25 mg 0-11 tablet by [facility] of tablet 00:00: mouth in [place] the Medical morning Branch and 1 tablet at noon and 1 tablet in the evening. amiodarone 2021-05 Yes 200mg Take 1 [facility] 200 mg 0-11 tablet by [facility] of tablet 00:00: mouth in [place] the morning. Branch aspirin 81 2021-05 Yes 81mg Take 1 [facility] mg EC 0-11 tablet by [facility] of tablet 00:00: mouth in [place] the morning. Branch carvediloL 2021-05 Yes 6.25mg Take 1 [facility] 6.25 mg 0-11 tablet by [facility] of tablet 00:00: mouth in [place] the morning Branch and 1 tablet in the evening. Take with meals. meclizine 2021-05 Yes 25mg Take 1 [facility] 25 mg 0-11 tablet by [facility] of tablet 00:00: mouth in [place] the morning Branch and 1 tablet at noon and 1 tablet in the evening. amiodarone 2021-05 Yes 200mg Take 1 [facility] 200 mg 0-11 tablet by [facility] of tablet 00:00: mouth in [place] the morning. Branch aspirin 81 2021-05 Yes 81mg Take 1 [facility] mg EC 0-11 tablet by [facility] of tablet 00:00: mouth in [place] the . Branch carvediloL 2021-05 Yes 6.25mg Take 1 [facility] 6.25 mg 0-11 tablet by [facility] of tablet 00:00: mouth in [place] the Medical morning Branch and 1 tablet in the evening. Take with meals. meclizine 2021-05 Yes 25mg Take 1 [facility] 25 mg 0-11 tablet by [facility] of tablet 00:00: mouth in [place] the Medical morning Branch and 1 tablet at noon and 1 tablet in the evening. amiodarone 2021-05 Yes 200mg Take 1 [facility] 200 mg 0-11 tablet by [facility] of tablet 00:00: mouth in [place] the morning. Branch aspirin 81 2021-05 Yes 81mg Take 1 [facility] mg EC 0-11 tablet by [facility] of tablet 00:00: mouth in [place] the morning. Branch carvediloL 2021-05 Yes 6.25mg Take 1 [facility] vers 6.25 mg 0-11 tablet by [facility] of tablet 00:00: mouth in [place] the morning Branch and 1 tablet in the evening. Take with meals. meclizine 2021-05 Yes 25mg Take 1 [facility] 25 mg 0-11 tablet by [facility] of tablet 00:00: mouth in [place] the Medical morning Branch and 1 tablet at noon and 1 tablet in the evening. amiodarone 2021-05 Yes 200mg Take 1 [facility] 200 mg 0-11 tablet by [facility] of tablet 00:00: mouth in [place] the morning. Branch aspirin 81 2021-05 Yes 81mg Take 1 [facility] mg EC 0-11 tablet by [facility] of tablet 00:00: mouth in [place] the morning. Branch carvediloL 2021-05 Yes 6.25mg Take 1 [facility] vers 6.25 mg 0-11 tablet by [facility] of tablet 00:00: mouth in [place] the morning Branch and 1 tablet in the evening. Take with meals. meclizine 2021-05 Yes 25mg Take 1 [facility] 25 mg 0-11 tablet by [facility] of tablet 00:00: mouth in [place] the morning Branch and 1 tablet at noon and 1 tablet in the evening. amiodarone 2021-05 Yes 200mg Take 1 [facility] 200 mg 0-11 tablet by [facility] of tablet 00:00: mouth in [place] the morning. Branch aspirin 81 2021-05 Yes 81mg Take 1 [facility] mg EC 0-11 tablet by [facility] of tablet 00:00: mouth in [place] the morning. Branch carvediloL 2021-05 Yes 6.25mg Take 1 [facility] vers 6.25 mg 0-11 tablet by [facility] of tablet 00:00: mouth in [place] the morning Branch and 1 tablet in the evening. Take with meals. meclizine 2021-05 Yes 25mg Take 1 [facility] 25 mg 0-11 tablet by [facility] of tablet 00:00: mouth in [place] the morning Branch and 1 tablet at noon and 1 tablet in the evening. amiodarone 2021-05 Yes 200mg Take 1 [facility] 200 mg 0-11 tablet by [facility] of tablet 00:00: mouth in [place] the morning. Branch aspirin 81 2021-05 Yes 81mg Take 1 [facility] mg EC 0-11 tablet by [facility] of tablet 00:00: mouth in [place] the morning. Branch carvediloL 2021-05 Yes 6.25mg Take 1 [facility] vers 6.25 mg 0-11 tablet by [facility] of tablet 00:00: mouth in [place] the Medical morning Branch and 1 tablet in the evening. Take with meals. meclizine 2021-05 Yes 25mg Take 1 [facility] 25 mg 0-11 tablet by [facility] of tablet 00:00: mouth in [place] the Medical morning Branch and 1 tablet at noon and 1 tablet in the evening. amiodarone 2021-05 Yes 200mg Take 1 [facility] 200 mg 0-11 tablet by [facility] of tablet 00:00: mouth in [place] the morning. Branch aspirin 81 2021-05 Yes 81mg Take 1 [facility] mg EC 0-11 tablet by [facility] of tablet 00:00: mouth in [place] the morning. Branch carvediloL 2021-05 Yes 6.25mg Take 1 [facility] vers 6.25 mg 0-11 tablet by [facility] of tablet 00:00: mouth in [place] the Medical morning Branch and 1 tablet in the evening. Take with meals. meclizine 2021-05 Yes 25mg Take 1 [facility] 25 mg 0-11 tablet by [facility] of tablet 00:00: mouth in [place] the Medical morning Branch and 1 tablet at noon and 1 tablet in the evening. amiodarone 2021-05 Yes 200mg Take 1 [facility] 200 mg 0-11 tablet by [facility] of tablet 00:00: mouth in [place] the Medical morning. Branch carvediloL 2021-05- No 6.25mg Take 1 [facility] 6.25 mg 0-11 -08 tablet by [facility] of tablet 00:00: 00:00 mouth in [place] 00 :00 the Medical morning Branch and 1 tablet in the evening. Take with meals. amiodarone 2021-05- No 200mg Take 1 [facility] 200 mg 0-11 11-07 tablet by [facility] of tablet 00:00: 00:00 mouth in [place] 00 :00 the Medical morning. Branch amiodarone 2021-2022- No 200mg Take 1 [facility] vers 200 mg 003-25 tablet by [facility] of tablet 00:00: 00:00 mouth in [place] 00 :00 the Medical morning. Branch amiodarone 2021-2022- No 200mg Take 1 [facility] vers 200 mg 003-25 tablet by [facility] of tablet 00:00: 00:00 mouth in [place] 00 :00 the Medical morning. Branch amiodarone 2021-3- No 200mg Take 1 [facility] vers 200 mg 003-25 tablet by [facility] of tablet 00:00: 00:00 mouth in [place] 00 :00 the Medical morning. Branch bumetanide 2-0 Yes 1mg Take 1 [facility] 1 mg tablet 7-19 tablet by [facility] of 00:00: mouth in [place] the Medical morning Branch and 1 tablet in the evening. bumetanide 2-0 Yes 1mg Take 1 [facility] 1 mg tablet 7-19 tablet by [facility] of 00:00: mouth in [place] the Medical morning Branch and 1 tablet in the evening. bumetanide 2-0 Yes 1mg Take 1 [facility] 1 mg tablet 7-19 tablet by [facility] of 00:00: mouth in [place] the Medical morning Branch and 1 tablet in the evening. bumetanide 2-0 Yes 1mg Take 1 [facility] 1 mg tablet 7-19 tablet by [facility] of 00:00: mouth in [place] the Medical morning Branch and 1 tablet in the evening. bumetanide 2022-0 Yes 1mg Take 1 [facility] 1 mg tablet 7-19 tablet by [facility]y of 00:00: mouth in [place] 00 the Medical morning Branch and 1 tablet in the evening. bumetanide 2022-0 Yes 1mg Take 1 [facility] 1 mg tablet 7-19 tablet by [facility]y of 00:00: mouth in [place] the Medical morning Branch and 1 tablet in the evening. bumetanide 2022-0 Yes 1mg Take 1 [facility] 1 mg tablet 7-19 tablet by [facility] of 00:00: mouth in [place] [address] the Medical morning Branch and 1 tablet in the evening. bumetanide 2022-0 Yes 1mg Take 1 [facility] 1 mg tablet 7-19 tablet by [facility]y of 00:00: mouth in [place] 00 the Medical morning Branch and 1 tablet in the evening. bumetanide 2022-0 Yes 1mg Take 1 [facility] 1 mg tablet 7-19 tablet by [facility] of 00:00: mouth in [place] 00 the Medical morning Branch and 1 tablet in the evening. bumetanide 2022-0 Yes 1mg Take 1 [facility] 1 mg tablet 7-19 tablet by [facility] of 00:00: mouth in [place] 00 the Medical morning Branch and 1 tablet in the evening. bumetanide 2022-0 Yes 1mg Take 1 [facility] 1 mg tablet 7-19 tablet by [facility] of 00:00: mouth in [place] 00 the Medical morning Branch and 1 tablet in the evening. bumetanide 2022-0 Yes 1mg Take 1 [facility] 1 mg tablet 7-19 tablet by [facility] of 00:00: mouth in [place] 00 the Medical morning Branch and 1 tablet in the evening. bumetanide 2022-0 Yes 1mg Take 1 [facility] 1 mg tablet 7-19 tablet by ity of 00:00: mouth in [place] [address] the Medical morning Branch and 1 tablet in the evening. bumetanide 2022-0 Yes 1mg Take 1 [facility] 1 mg tablet 7-19 tablet by [facility]y of 00:00: mouth in [place] [address] the Medical morning Branch and 1 tablet in the evening. bumetanide 2022-0 Yes 1mg Take 1 [facility] 1 mg tablet 7-19 tablet by [facility]y of 00:00: mouth in [place] 00 the Medical morning Branch and 1 tablet in the evening. bumetanide 2022-0 Yes 1mg Take 1 [facility] 1 mg tablet 7-19 tablet by [facility] of 00:00: mouth in [place] [address] the Medical morning Branch and 1 tablet in the evening. bumetanide 2022-0 Yes 1mg Take 1 [facility] 1 mg tablet 7-19 tablet by ity of 00:00: mouth in [place] [address] the Medical morning Branch and 1 tablet in the evening. bumetanide 2022-0 Yes 1mg Take 1 [facility] 1 mg tablet 7-19 tablet by [facility] of 00:00: mouth in [place] [address] the Medical morning Branch and 1 tablet [...] 1 tablet in the evening. bumetanide 2021-0 3- No 1mg Take 1 [facility] 1 mg tablet 7-06 06-12 tablet by it y of 00:00: 00:00 mouth in [place] 00 :00 the Medical morning Branch and 1 tablet in the evening. Mupirocin 2 Mupirocin 2 2021-2- No 1{appli BID Mupirocin % % 7-19 -24 cation} 2 % 00:00: 00:00 00 :00 glimepiride 2021-0 Yes 2mg Take 2 mg [facility] 2 mg tablet 4-08 by mouth ity of 16:21: daily with [place] [address] breakfast. Medical Branch glimepiride 2021-0 Yes 2mg Take 2 mg [facility] 2 mg tablet 4-08 by mouth ity of 16:21: daily with [place] [address] breakfast. Medical Branch glimepiride 2021-0 Yes 2mg Take 2 mg [facility] 2 mg tablet 4-08 by mouth ity of 16:21: daily with [place] [address] breakfast. Medical Branch glimepiride 2021-0 Yes 2mg Take 2 mg [facility] 2 mg tablet 4-08 by mouth ity of 16:21: daily with [place] [address] breakfast. Medical Branch glimepiride 2-0 Yes 2mg Take 2 mg [facility] 2 mg tablet 4-08 by mouth ity of 16:21: daily with [place] [address] breakfast. Medical Branch glimepiride 2022-0 Yes 2mg Take 2 mg [facility] 2 mg tablet 4-08 by mouth ity of 16:21: daily with [place] [address] breakfast. Medical Branch glimepiride 2022-0 Yes 2mg Take 2 mg [facility] 2 mg tablet 4-08 by mouth ity of 16:21: daily with [place] [address] breakfast. Medical Branch glimepiride 2022-0 Yes 2mg Take 2 mg [facility] 2 mg tablet 4-08 by mouth ity of 16:21: daily with [place] [address] breakfast. Medical Branch glimepiride 2-0 Yes 2mg Take 2 mg [facility] 2 mg tablet 4-08 by mouth ity of 16:21: daily with [place] [address] breakfast. Medical Branch glimepiride 2-0 Yes 2mg Take 2 mg [facility] 2 mg tablet 4-08 by mouth ity of 16:21: daily with [place] [address] breakfast. Medical Branch glimepiride 2-0 Yes 2mg Take 2 mg [facility] 2 mg tablet 4-08 by mouth ity of 16:21: daily with [place] [address] breakfast. Medical Branch glimepiride 2-0 Yes 2mg Take 2 mg [facility] 2 mg tablet 4-08 by mouth ity of 16:21: daily with [place] [address] breakfast. Medical Branch glimepiride 2-0 Yes 2mg Take 2 mg [facility] 2 mg tablet 4-08 by mouth ity of 16:21: daily with [place] [address] breakfast. Medical Branch glimepiride 2-0 Yes 2mg Take 2 mg [facility] 2 mg tablet 4-08 by mouth ity of 16:21: daily with [place] [address] breakfast. Medical Branch glimepiride 2021-0 Yes 2mg Take 2 mg [facility] 2 mg tablet 4-08 by mouth ity of 16:21: daily with [place] [address] breakfast. Medical Branch glimepiride 2021-0 Yes 2mg Take 2 mg [facility] 2 mg tablet 4-08 by mouth ity of 16:21: daily with [place] [address] breakfast. Medical Branch glimepiride 2-0 Yes 2mg Take 2 mg [facility] 2 mg tablet 4-08 by mouth ity of 16:21: daily with [place] [address] breakfast. Medical Branch glimepiride 2-0 Yes 2mg Take 2 mg [facility] 2 mg tablet 4-08 by mouth ity of 16:21: daily with [place] [address] breakfast. Medical Branch glimepiride 2-0 Yes 2mg Take 2 mg [facility] 2 mg tablet 4-08 by mouth ity of 16:21: daily with [place] [address] breakfast. Medical Branch glimepiride 2-0 Yes 2mg Take 2 mg [facility] 2 mg tablet 4-08 by mouth ity of 16:21: daily with [place] [address] breakfast. Medical Branch glimepiride 2021-0 Yes 2mg Take 2 mg [facility] 2 mg tablet 4-08 by mouth ity of 16:21: daily with [place] [address] breakfast. Medical Branch glimepiride 2021-0 Yes 2mg Take 2 mg [facility] 2 mg tablet 4-08 by mouth ity of 16:21: daily with [place] [address] breakfast. Medical Branch glimepiride 2021-0 Yes 2mg Take 2 mg [facility] 2 mg tablet 4-08 by mouth ity of 16:21: daily with [place] [address] breakfast. Medical Branch glimepiride 2021-0 Yes 2mg Take 2 mg [facility] 2 mg tablet 4-08 by mouth ity of 16:21: daily with [place] [address] breakfast. Medical Branch spironolact 0 Yes [id number] 12.5mg Take 0.5 [facility] one 25 mg 4-08 tablets by it[facility] of tablet 00:00: mouth [place] 00 daily. Medical Branch bumetanide 2021-0 Yes [id number] 1mg Take 1 [facility] 1 mg tablet 4-08 tablet by it[facility] of 00:00: mouth [place] 00 daily. Medical Branch empaglifloz 0 Yes [id number] 10mg Take 1 [facility] in 10 mg 4-08 tablet by ity of 00:00: mouth [place] 00 daily. Medical Branch spironolact 2021-0 Yes [id number] 12.5mg Take 0.5 [facility] one 25 mg 4-08 tablets by it[facility] of tablet 00:00: mouth [place] 00 daily. Medical Branch empaglifloz 2021-0 Yes [id number] 10mg Take 1 [facility] in 10 mg 4-08 tablet by it[facility] of 00:00: mouth [place] 00 daily. Medical Branch spironolact 2021-0 Yes [id number] 12.5mg Take 0.5 [facility] one 25 mg 4-08 tablets by it[facility] of tablet 00:00: mouth [place] 00 daily. Medical Branch empaglifloz 2021-0 Yes [id number] 10mg Take 1 [facility] in 10 mg 4-08 tablet by ity of 00:00: mouth [place] 00 daily. [facility] Branch spironolact 2021-0 Yes [id number] 12.5mg Take 0.5 [facility] one 25 mg 4-08 tablets by ity of tablet 00:00: mouth [place] 00 daily. Medical Branch empaglifloz 2-0 Yes [id number] 10mg Take 1 [facility] in 10 mg 4-08 tablet by ity of 00:00: mouth [place] 00 daily. Medical Branch spironolact 2-0 Yes [id number] 12.5mg Take 0.5 [facility] one 25 mg 4-08 tablets by ity of tablet 00:00: mouth [place] 00 daily. Medical Branch empaglifloz 2-0 Yes [id number] 10mg Take 1 [facility] in 10 mg 4-08 tablet by ity of 00:00: mouth [place] 00 daily. Medical Branch spironolact 2021-0 Yes [id number] 12.5mg Take 0.5 [facility] one 25 mg 4-08 tablets by ity of tablet 00:00: mouth [place] 00 daily. [facility] Branch empaglifloz 2-0 Yes [id number] 10mg Take 1 [facility] in 10 mg 4-08 tablet by ity of 00:00: mouth [place] 00 daily. [facility] Branch spironolact 2021-0 Yes [id number] 12.5mg Take 0.5 [facility] one 25 mg 4-08 tablets by ity of tablet 00:00: mouth [place] 00 daily. [facility] Branch empaglifloz 2021-0 Yes [id number] 10mg Take 1 [facility] in 10 mg 4-08 tablet by ity of 00:00: mouth [place] 00 daily. [facility] Branch spironolact 2021-0 Yes [id number] 12.5mg Take 0.5 [facility] one 25 mg 4-08 tablets by ity of tablet 00:00: mouth [place] 00 daily. Medical Branch empaglifloz 2-0 Yes [id number] 10mg Take 1 [facility] in 10 mg 4-08 tablet by ity of 00:00: mouth [place] 00 daily. Medical Branch spironolact 2-0 Yes [id number] 12.5mg Take 0.5 [facility] one 25 mg 4-08 tablets by ity of tablet 00:00: mouth [place] 00 daily. [facility] Branch empaglifloz 2-0 Yes [id number] 10mg Take 1 [facility] in 10 mg 4-08 tablet by ity of 00:00: mouth [place] 00 daily. [facility] Branch spironolact 2-0 Yes [id number] 12.5mg Take 0.5 [facility] one 25 mg 4-08 tablets by ity of tablet 00:00: mouth [place] 00 daily. Medical Branch empaglifloz 2-0 Yes [id number] 10mg Take 1 [facility] in 10 mg 4-08 tablet by ity of 00:00: mouth [place] 00 daily. Medical Branch spironolact 2021-0 Yes [id number] 12.5mg Take 0.5 [facility] one 25 mg 4-08 tablets by ity of tablet 00:00: mouth [place] 00 daily. Medical Branch empaglifloz 2-0 Yes [id number] 10mg Take 1 [facility] in 10 mg 4-08 tablet by ity of 00:00: mouth [place] 00 daily. Medical Branch spironolact 2021-0 Yes [id number] 12.5mg Take 0.5 [facility] one 25 mg 4-08 tablets by ity of tablet 00:00: mouth [place] 00 daily. Medical Branch empaglifloz 2021-0 Yes [id number] 10mg Take 1 [facility] in 10 mg 4-08 tablet by ity of 00:00: mouth [place] 00 daily. Medical Branch spironolact 2021-0 Yes [id number] 12.5mg Take 0.5 [facility] one 25 mg 4-08 tablets by ity of tablet 00:00: mouth [place] 00 daily. Medical Branch empaglifloz 2021-0 Yes [id number] 10mg Take 1 [facility] in 10 mg 4-08 tablet by ity of 00:00: mouth [place] 00 daily. [facility] spironolact 2021-0 Yes [id number] 12.5mg Take 0.5 [facility] one 25 mg 4-08 tablets by ity of tablet 00:00: mouth [place] 00 daily. [facility] empaglifloz 2-0 Yes [id number] 10mg Take 1 [facility] in 10 mg 4-08 tablet by it[facility] of 00:00: mouth [place] 00 daily. [facility] spironolact 2-0 Yes [id number] 12.5mg Take 0.5 [facility] one 25 mg 4-08 tablets by it[facility] of tablet 00:00: mouth [place] 00 daily. [facility] empaglifloz 2-0 Yes [id number] 10mg Take 1 [facility] in 10 mg 4-08 tablet by it[facility] of 00:00: mouth [place] 00 daily. [facility] spironolact 2022-0 Yes [id number] 12.5mg Take 0.5 [facility] one 25 mg 4-08 tablets by it[facility] of tablet 00:00: mouth [place] 00 daily. [facility] empaglifloz 2-0 Yes [id number] 10mg Take 1 [facility] in 10 mg 4-08 tablet by it[facility] of 00:00: mouth [place] 00 daily. [facility] spironolact 2-0 Yes [id number] 12.5mg Take 0.5 [facility] one 25 mg 4-08 tablets by it[facility] of tablet 00:00: mouth [place] 00 daily. [facility] empaglifloz 2-0 Yes [id number] 10mg Take 1 [facility] in 10 mg 4-08 tablet by it[facility] of 00:00: mouth [place] 00 daily. [facility] spironolact 2021-0 Yes [id number] 12.5mg Take 0.5 [facility] one 25 mg 4-08 tablets by it[facility] of tablet 00:00: mouth [place] 00 daily. [facility] empaglifloz 2021-0 Yes [id number] 10mg Take 1 [facility] in 10 mg 4-08 tablet by ity of 00:00: mouth [place] 00 daily. [facility] spironolact 2021-0 Yes [id number] 12.5mg Take 0.5 [facility] one 25 mg 4-08 tablets by ity of tablet 00:00: mouth [place] 00 daily. [facility] empaglifloz 2021-0 Yes [id number] 10mg Take 1 [facility] in 10 mg 4-08 tablet by ity of 00:00: mouth [place] 00 daily. [facility] spironolact 2-0 Yes [id number] 12.5mg Take 0.5 [facility] one 25 mg 4-08 tablets by ity of tablet 00:00: mouth [place] 00 daily. [facility] empaglifloz 2-0 Yes [id number] 10mg Take 1 [facility] in 10 mg 4-08 tablet by it[facility] of 00:00: mouth [place] 00 daily. [facility] spironolact 2-0 Yes [id number] 12.5mg Take 0.5 [facility] one 25 mg 4-08 tablets by it[facility] of tablet 00:00: mouth [place] 00 daily. [facility] empaglifloz 2-0 Yes [id number] 10mg Take 1 [facility] in 10 mg 4-08 tablet by ity of 00:00: mouth [place] 00 daily. [facility] spironolact 2-0 Yes [id number] 12.5mg Take 0.5 [facility] one 25 mg 4-08 tablets by it[facility] of tablet 00:00: mouth [place] 00 daily. [facility] empaglifloz 2-0 Yes [id number] 10mg Take 1 [facility] in 10 mg 4-08 tablet by it[facility] of 00:00: mouth [place] 00 daily. [facility] spironolact 2-0 Yes [id number] 12.5mg Take 0.5 [facility] one 25 mg 4-08 tablets by it[facility] of tablet 00:00: mouth [place] 00 daily. [facility] empaglifloz 2-0 Yes [id number] 10mg Take 1 [facility] in 10 mg 4-08 tablet by ity of 00:00: mouth [place] 00 daily. [facility] spironolact 2021-0 Yes [id number] 12.5mg Take 0.5 [facility] one 25 mg 4-08 tablets by ity of tablet 00:00: mouth [place] 00 daily. [facility] empaglifloz 2-0 Yes [id number] 10mg Take 1 [facility] in 10 mg 4-08 tablet by ity of 00:00: mouth [place] 00 daily. [facility] spironolact 2021-0 Yes [id number] 12.5mg Take 0.5 [facility] one 25 mg 4-08 tablets by ity of tablet 00:00: mouth [place] 00 daily. [facility] empaglifloz 2-0 Yes [id number] 10mg Take 1 [facility] in 10 mg 4-08 tablet by ity of 00:00: mouth [place] 00 daily. [facility] spironolact 2-0 Yes [id number] 12.5mg Take 0.5 [facility] one 25 mg 4-08 tablets by ity of tablet 00:00: mouth [place] 00 daily. [facility] empaglifloz 2-0 Yes [id number] 10mg Take 1 [facility] in 10 mg 4-08 tablet by ity of 00:00: mouth [place] 00 daily. [facility] spironolact 2-0 Yes [id number] 12.5mg Take 0.5 [facility] one 25 mg 4-08 tablets by ity of tablet 00:00: mouth [place] 00 daily. [facility] empaglifloz 2-0 Yes [id number] 10mg Take 1 [facility] in 10 mg 4-08 tablet by ity of 00:00: mouth [place] 00 daily. [facility] spironolact 2-0 Yes [id number] 12.5mg Take 0.5 [facility] one 25 mg 4-08 tablets by ity of tablet 00:00: mouth [place] 00 daily. [facility] empaglifloz 2-0 Yes [id number] 10mg Take 1 [facility] in 10 mg 4-08 tablet by ity of 00:00: mouth [place] 00 daily. [facility] spironolact 2-0 Yes [id number] 12.5mg Take 0.5 [facility] one 25 mg 4-08 tablets by ity of tablet 00:00: mouth [place] 00 daily. [facility] empaglifloz 2-0 Yes [id number] 10mg Take 1 [facility] in 10 mg 4-08 tablet by ity of 00:00: mouth [place] 00 daily. [facility] spironolact 2-0 Yes [id number] 12.5mg Take 0.5 [facility] one 25 mg 4-08 tablets by ity of tablet 00:00: mouth [place] 00 daily. [facility] empaglifloz 2-0 Yes [id number] 10mg Take 1 [facility] in 10 mg 4-08 tablet by ity of 00:00: mouth [place] 00 daily. [facility] spironolact 2-0 Yes [id number] 12.5mg Take 0.5 [facility] one 25 mg 4-08 tablets by ity of tablet 00:00: mouth [place] 00 daily. [facility] empaglifloz 2-0 Yes [id number] 10mg Take 1 [facility] in 10 mg 4-08 tablet by ity of 00:00: mouth [place] 00 daily. [facility] spironolact 2-0 Yes [id number] 12.5mg Take 0.5 [facility] one 25 mg 4-08 tablets by ity of tablet 00:00: mouth [place] 00 daily. [facility] empaglifloz 2-0 Yes [id number] 10mg Take 1 [facility] in 10 mg 4-08 tablet by ity of 00:00: mouth [place] 00 daily. [facility] empaglifloz 2-0 Yes [id number] 10mg Take 1 [facility] in 10 mg 4-08 tablet by ity of 00:00: mouth [place] 00 daily. [facility] empaglifloz 2-0 Yes [id number] 10mg Take 1 [facility] in 10 mg 4-08 tablet by ity of 00:00: mouth [place] 00 daily. [facility] empaglifloz 2021-0 3- No [id number] 10mg Take 1 [facility] in 10 mg 08-24- tablet by ity o f 00:00: 00:00 mouth [place] 00 :00 daily. [facility] empaglifloz 2021-0 3- No [id number] 10mg Take 1 [facility] in 10 mg 08-24 tablet by ity o f 00:00: 00:00 mouth [place] 00 :00 daily. [facility] empaglifloz 0 2022- No [id number] 10mg Take 1 [facility] in 10 mg 08-24 tablet by ity o f 00:00: 00:00 mouth [place] 00 :00 daily. [facility] spironolact 2022- No [id number] 12.5mg Take 0.5 [facility] one 25 mg 08-24 tablets by ity of tablet 00:00: 00:00 mouth [place] 00 :00 daily. [facility] bumetanide 2021- No [id number] 1mg Take 1 [facility] 1 mg tablet [...] 56 (two) Medical times Branch daily. carvediloL 2021- Yes 12.5mg Take 12.5 [facility] 12.5 mg [...] by ity of tablet 14:05: mouth 2 [place] 56 (two) Medical times Branch daily with meals. NOEL 2021-0 Yes Take by [facility] ASPIRIN 2-01 mouth. ity of ORAL 14:05: [place] [address] Medical Branch metformin 2021-0 Yes 500mg Take [...] of tablet 14:05: mouth 2 [place] [address] (two) Medical times Branch daily with meals. NOEL 2021-0 Yes Take by [facility] ASPIRIN 2-01 mouth. ity of ORAL 14:05: [place] [address] Medical Branch metformin 2021-0 Yes 500mg Take [...] by ity of tablet 14:05: mouth 2 [place] 56 (two) Medical times Branch daily with meals. NOEL 2021-0 Yes Take by [facility] ASPIRIN 2-01 mouth. ity of ORAL 14:05: [place] [address] Medical Branch metformin 2021-0 Yes 500mg Take [...] mouth. ity of ORAL 14:05: [place] [address] Medical Branch metformin 2021-0 Yes 500mg Take [...] of tablet 14:05: mouth 2 [place] [address] (two) Medical times Branch daily with meals. NOEL 2021-0 Yes Take by [facility] ASPIRIN 2-01 mouth. ity of ORAL 14:05: [place] [address] [facility] metformin 2021-0 Yes 500mg Take 500 [facility] vers HCl 2-01 mg by ity of (METFORMIN 14:05: [place] (two) Medical times Branch daily with meals. sacubitriL- 2-0 Yes 1{tbl} Take 1 [facility] valsartan 2-01 tablet by ity o f 49-51 mg 14:05: mouth 2 [place] tablet 56 (two) Medical times Branch daily. carvediloL 2-0 Yes 12.5mg Take 12.5 [facility] 12.5 mg 2-01 mg by ity of tablet 14:05: mouth 2 [place] 56 (two) Medical times Branch daily with meals. NOEL 2-0 Yes Take by [facility] ASPIRIN 2-01 mouth. ity of ORAL 14:05: [place] [address] Medical Branch metformin 2-0 Yes 500mg Take [...] ASPIRIN 2-01 mouth. ity of ORAL 14:05: [address] Branch metformin 2021-0 Yes 500mg Take [...] by ity of tablet 14:05: mouth 2 [place] 56 (two) Medical times Branch daily with meals. NOEL 2021-0 Yes Take by [facility] ASPIRIN 2-01 mouth. ity of ORAL 14:05: [address] Branch metformin 2021-0 Yes 500mg Take [...] by ity of tablet 14:05: mouth 2 [place] 56 (two) Medical times Branch daily with meals. NOEL 2022-0 Yes Take by [facility] ASPIRIN 2-01 [...] [Zanaflex] 00 30 tab, 3 Refill(s), Pharmacy: [facility], 154.94, cm, 03/22/21 13:32:00 CDT, Height, 119.545, kg, 03/22/21 13:32:00 CDT, Weight tizanidine 2020-05 Yes 4 mg = 1 Mem oria 4 MG Oral 1-04 tab, PO, l Tablet 18:45: Bedtime, # [place] nn [Zanaflex] 00 30 tab, 3 Refill(s), Pharmacy: [facility], 154.94, cm, 03/22/21 13:32:00 CDT, Height, 119.545, kg, 03/22/21 13:32:00 CDT, Weight tizanidine 2020-05 Yes 4 mg = 1 Mem oria 4 MG Oral 1-04 tab, PO, l Tablet 18:45: Bedtime, # [place] nn [Zanaflex] 00 30 tab, 3 Refill(s), Pharmacy: [facility], 154.94, cm, 03/22/21 13:32:00 CDT, Height, 119.545, kg, 03/22/21 13:32:00 CDT, Weight tizanidine 2020-05 Yes 4 mg = 1 Mem [facility] 4 MG Oral 1-04 tab, PO, l Tablet 18:45: Bedtime, # [place] nn [Zanaflex] 00 30 tab, 3 Refill(s), Pharmacy: [facility], 154.94, cm, 03/22/21 13:32:00 CDT, Height, 119.545, kg, 03/22/21 13:32:00 CDT, Weight tizanidine 2020-05 Yes 4 mg = 1 Mem [facility] 4 MG Oral 1-04 tab, PO, l Tablet 18:45: Bedtime, # [place] nn [Zanaflex] 00 30 tab, 3 Refill(s), Pharmacy: [facility], 154.94, cm, 03/22/21 13:32:00 CDT, Height, 119.545, kg, 03/22/21 13:32:00 CDT, Weight tizanidine 2020-05 Yes 4 mg = 1 Mem [facility] 4 MG Oral 1-04 tab, PO, l Tablet 18:45: Bedtime, # [place] [Zanaflex] 00 30 tab, 3 Refill(s), Pharmacy: [facility], 154.94, cm, 03/22/21 13:32:00 CDT, Height, 119.545, kg, 03/22/21 13:32:00 CDT, Weight tizanidine 2020- Yes 4 mg = 1 Mem [facility] 4 MG Oral 1-04 tab, PO, l Tablet 18:45: Bedtime, # [place] [Zanaflex] 00 30 tab, 3 Refill(s), Pharmacy: [facility], 154.94, cm, 03/22/21 13:32:00 CDT, Height, 119.545, kg, 03/22/21 13:32:00 CDT, Weight tizanidine 2020- Yes 4 mg = 1 Mem [facility] 4 MG Oral 1-04 tab, PO, l Tablet 18:45: Bedtime, # [place] [Zanaflex] 00 30 tab, 3 Refill(s), Pharmacy: [facility], 154.94, cm, 03/22/21 13:32:00 CDT, Height, 119.545, kg, 03/22/21 13:32:00 CDT, Weight tizanidine 2020- Yes 4 mg = 1 Mem [facility] 4 MG Oral 1-04 tab, PO, l Tablet 18:45: Bedtime, # [place] [Zanaflex] 00 30 tab, 3 Refill(s), Pharmacy: [facility], 154.94, cm, 03/22/21 13:32:00 CDT, Height, 119.545, kg, 03/22/21 13:32:00 CDT, Weight tizanidine 2020- Yes 4 mg = 1 Mem [facility] 4 MG Oral 1-04 tab, PO, l Tablet 18:45: Bedtime, # [place] [Zanaflex] 00 30 tab, 3 Refill(s), Pharmacy: [facility], 154.94, cm, 03/22/21 13:32:00 CDT, Height, 119.545, kg, 03/22/21 13:32:00 CDT, Weight tizanidine 2020- Yes 4 mg = 1 Mem [facility] 4 MG Oral 1-04 tab, PO, l Tablet 18:45: Bedtime, # [place] [Zanaflex] 00 30 tab, 3 Refill(s), Pharmacy: [facility], 154.94, cm, 03/22/21 13:32:00 CDT, Height, 119.545, kg, 03/22/21 13:32:00 CDT, Weight tizanidine 2020- Yes 4 mg = 1 Mem [facility] 4 MG Oral 1-04 tab, PO, l Tablet 18:45: Bedtime, # [place] [Zanaflex] 00 30 tab, 3 Refill(s), Pharmacy: [facility], 154.94, cm, 03/22/21 13:32:00 CDT, Height, 119.545, kg, 03/22/21 13:32:00 CDT, Weight tizanidine 2020- Yes 4 mg = 1 Mem [facility] 4 MG Oral 1-04 tab, PO, l Tablet 18:45: Bedtime, # [place] [Zanaflex] 00 30 tab, 3 Refill(s), Pharmacy: [facility], 154.94, cm, 03/22/21 13:32:00 CDT, Height, 119.545, kg, 03/22/21 13:32:00 CDT, Weight tizanidine 2020- Yes 4 mg = 1 Mem [facility] 4 MG Oral 1-04 tab, PO, l Tablet 18:45: Bedtime, # [place] [Zanaflex] 00 30 tab, 3 Refill(s), Pharmacy: [facility], 154.94, cm, 03/22/21 13:32:00 CDT, Height, 119.545, kg, 03/22/21 13:32:00 CDT, Weight tizanidine 2020-1 Yes 4 mg = 1 Mem o[facility] 4 MG Oral 1-04 tab, PO, l Tablet 18:45: Bedtime, # [place] nn [Zanaflex] 00 30 tab, 3 Refill(s), Pharmacy: [facility], 154.94, cm, 03/22/21 13:32:00 CDT, Height, 119.545, kg, 03/22/21 13:32:00 CDT, Weight tizanidine 2020-05 Yes 4 mg = 1 [facility] 4 MG Oral 1-04 tab, PO, l Tablet 18:45: Bedtime, # [place] [Zanaflex] 00 30 tab, 3 Refill(s), Pharmacy: [facility], 154.94, cm, 03/22/21 13:32:00 CDT, Height, 119.545, kg, 03/22/21 13:32:00 CDT, Weight tizanidine 2020-05 Yes 4 mg = 1 [facility] 4 MG Oral 1-04 tab, PO, l Tablet 18:45: Bedtime, # [place] [Zanaflex] 00 30 tab, 3 Refill(s), Pharmacy: [facility], 154.94, cm, 03/22/21 13:32:00 CDT, Height, 119.545, kg, 03/22/21 13:32:00 CDT, Weight tizanidine 2020-05 Yes 4 mg = 1 Mem [facility] 4 MG Oral 1-04 tab, PO, l Tablet 18:45: Bedtime, # [place] [Zanaflex] 00 30 tab, 3 Refill(s), Pharmacy: [facility], 154.94, cm, 03/22/21 13:32:00 CDT, Height, 119.545, kg, 03/22/21 13:32:00 CDT, Weight tizanidine 2020-05 Yes 4 mg = 1 Mem [facility] 4 MG Oral 1-04 tab, PO, l Tablet 18:45: Bedtime, # [place] nn [Zanaflex] 00 30 tab, 3 Refill(s), Pharmacy: [facility], 154.94, cm, 03/22/21 13:32:00 CDT, Height, 119.545, kg, 03/22/21 13:32:00 CDT, Weight tizanidine 2020-05 Yes 4 mg = 1 Mem [facility] 4 MG Oral 1-04 tab, PO, l Tablet 18:45: Bedtime, # [place] nn [Zanaflex] 00 30 tab, 3 Refill(s), Pharmacy: [facility], 154.94, cm, 03/22/21 13:32:00 CDT, Height, 119.545, kg, 03/22/21 13:32:00 CDT, Weight tizanidine 2020-05 Yes 4 mg = 1 Mem [facility] 4 MG Oral 1-04 tab, PO, l Tablet 18:45: Bedtime, # [place] nn [Zanaflex] 00 30 tab, 3 Refill(s), Pharmacy: [facility], 154.94, cm, 03/22/21 13:32:00 CDT, Height, 119.545, kg, 03/22/21 13:32:00 CDT, Weight tizanidine 2020-05 Yes 4 mg = 1 Mem [facility] 4 MG Oral 1-04 tab, PO, l Tablet 18:45: Bedtime, # [place] nn [Zanaflex] 00 30 tab, 3 Refill(s), Pharmacy: [facility], 154.94, cm, 03/22/21 [...] Yes 0 Memoria 0-06 Refill(s) l 19:55: [place] Aspirin 2020-05 Yes 0 Memoria 0-06 Refill(s) l 19:55: [place] Aspirin 2020-05 Yes 0 Memoria 0-06 Refill(s) l 19:55: [place] 00 Aspirin 2020-05 Yes 0 [facility]oria 0-06 Refill(s) l 19:55: [place] 00 Aspirin 2020-05 Yes 0 Memoria 0-06 Refill(s) l 19:55: [place] 00 Aspirin 2020-05 Yes 0 Memoria 0-06 Refill(s) l 19:55: [place] Aspirin 2020-05 Yes 0 Memoria 0-06 Refill(s) l 19:55: [place] 00 Aspirin 2020-05 Yes 0 Memoria 0-06 Refill(s) l 19:55: [place] 00 Aspirin 2020-05 Yes 0 Memoria 0-06 Refill(s) l 19:55: [place] 00 Aspirin 2020-05 Yes 0 Memoria 0-06 Refill(s) l 19:55: [place] Aspirin 2020-05 Yes 0 Memoria 0-06 Refill(s) l 19:55: [place] Aspirin 2020-05 Yes 0 Memoria 0-06 Refill(s) l 19:55: [place] 00 Aspirin 2020-05 Yes 0 Memoria 0-06 Refill(s) l 19:55: [place] 00 Aspirin 2020-05 Yes 0 Memoria 0-06 Refill(s) l 19:55: [place] 00 Aspirin 2020-05 Yes 0 Memoria 0-06 Refill(s) l 19:55: [place] 00 Aspirin 2020-05 Yes 0 Memoria 0-06 Refill(s) l 19:55: [place] 00 Aspirin 2020-05 Yes 0 Memoria 0-06 Refill(s) l 19:55: [place] 00 Potassium 2020-05 Yes 0 Memoria Chloride [...] l oral tablet 19:54: Q12H, # 60 [place] 00 tab, 0 Refill(s) Potassium 2020-05 Yes [...] # 60 [place] 00 tab, 0 Refill(s) METFORMIN 2020-05 Yes [...] l oral tablet 19:54: Q12H, # 60 [place] 00 tab, 0 Refill(s) Potassium 2020-05 Yes [...] l oral tablet 19:54: Q12H, # 60 [place] 00 tab, 0 Refill(s) Potassium 2020-05 Yes [...] l oral tablet 19:54: Q12H, # 60 [place] 00 tab, 0 Refill(s) Potassium 2020-05 Yes [...] Yes 0 [facility] Chloride 0-06 Refill(s) l ([facility] 19:54: [place] n on M20) 20 00 mEq oral tablet, extended release METFORMIN 2020-05 Yes METFORMIN Mem oria HYDROCHLORI 0-06 HYDROCHLOR l DE 500 MG 19:54: FABIEN 500 MG [place] TABS 00 TABS, Refill(s) 0 carvedilol 2020-05 Yes 6.25 mg = Me moria 6.25 mg 0-06 1 tab, PO, l oral tablet 19:54: Q12H, # 60 [place] 00 tab, 0 Refill(s) Potassium 2020-05 Yes [...] l oral tablet 19:54: Q12H, # 60 [place] 00 tab, 0 Refill(s) Potassium 2020-05 Yes [...] l oral tablet 19:54: Q12H, # 60 [place] 00 tab, 0 Refill(s) Potassium 2020-05 Yes 0 [facility] Chloride 0-06 Refill(s) l ([facility] 19:54: [place] n on M20) 20 00 [...] Yes 0 [facility] Chloride 0-06 Refill(s) l ([facility] 19:54: [place] n on M20) 20 00 mEq oral tablet, extended release METFORMIN 2020-05 Yes METFORMIN Mem oria HYDROCHLORI 0-06 HYDROCHLOR l DE 500 MG 19:54: FABIEN 500 MG [place] TABS 00 TABS, Refill(s) 0 carvedilol 2020-05 Yes 6.25 mg = Me moria 6.25 mg 0-06 1 tab, PO, l oral tablet 19:54: Q12H, # 60 [place] 00 tab, 0 Refill(s) Potassium 2020-05 Yes [...] l oral tablet 19:54: Q12H, # 60 [place] 00 tab, 0 Refill(s) Potassium 2020-05 Yes 0 [facility]oria Chloride 0-06 Refill(s) l ([facility] 19:54: [place] n on M20) 20 00 [...] Yes 0 [facility] Chloride 0-06 Refill(s) l ([facility] 19:54: [place] n on M20) 20 00 [...] MG / 0-06 Refill(s) l valsartan 19:53: [place] 51 MG Oral 00 Tablet [Entresto] GLIMEPIRIDE [...] 0-06 E 2MG TAB, l 19:53: Refill(s) [place] 00 0 sacubitril 2020-05 Yes 0 Memoria 49 MG / 0-06 Refill(s) l valsartan 19:53: [place] 51 MG Oral 00 Tablet [Entresto] GLIMEPIRIDE 2020-05 Yes GLIMEPIRID Memoria 2MG TAB 0-06 E 2MG TAB, l 19:53: Refill(s) [place] 00 0 sacubitril 2020-05 Yes 0 [facility] 49 MG / 0-06 Refill(s) l valsartan 19:53: [place] 51 MG Oral 00 Tablet [Entresto] GLIMEPIRIDE 2020-05 Yes GLIMEPIRID Mem[facility] 2MG TAB 0-06 E 2MG TAB, l 19:53: Refill(s) [place] 00 0 sacubitril 2020-05 Yes 0 [place] 49 MG / 0-06 Refill(s) l valsartan 19:53: [place] 51 MG Oral 00 Tablet [Entresto] GLIMEPIRIDE 2020-05 Yes GLIMEPIRID [facility] 2MG TAB 0-06 E 2MG TAB, l 19:53: Refill(s) [place] 00 0 sacubitril 2020-05 Yes 0 [place] 49 MG / 0-06 Refill(s) l valsartan 19:53: [place] 51 MG Oral 00 Tablet [Entresto] GLIMEPIRIDE 2020-05 Yes GLIMEPIRID Memoria 2MG TAB 0-06 E 2MG TAB, l 19:53: Refill(s) [place] 00 0 sacubitril 2020-05 Yes 0 [facility] 49 MG / 0-06 Refill(s) l valsartan 19:53: [place] 51 MG Oral 00 Tablet [Entresto] GLIMEPIRIDE 2020-05 Yes GLIMEPIRID [facility] 2MG TAB 0-06 E 2MG TAB, l 19:53: Refill(s) [place] 00 0 sacubitril 2020-05 Yes 0 Mem[facility] 49 MG / 0-06 Refill(s) l valsartan 19:53: [place] 51 MG Oral 00 Tablet [Entresto] GLIMEPIRIDE 2020-05 Yes GLIMEPIRID Mem[facility] 2MG TAB 0-06 E 2MG TAB, l 19:53: Refill(s) [place] 00 0 sacubitril 2020-05 Yes 0 Memoria [...] 0-06 E 2MG TAB, l 19:53: Refill(s) [place] 00 0 sacubitril 2020-05 Yes 0 Memoria 49 MG / 0-06 Refill(s) l valsartan 19:53: [place] 51 MG Oral 00 Tablet [Entresto] GLIMEPIRIDE 2020-05 Yes GLIMEPIRID Memoria 2MG TAB 0-06 E 2MG TAB, l 19:53: Refill(s) [place] 00 0 sacubitril 2020-05 Yes 0 Memoria 49 MG / 0-06 Refill(s) l valsartan 19:53: [place] 51 MG Oral 00 Tablet [Entresto] GLIMEPIRIDE 2020-05 Yes GLIMEPIRID Mem[facility] 2MG TAB 0-06 E 2MG TAB, l 19:53: Refill(s) [place] 00 0 sacubitril 2020-05 Yes 0 Memoria 49 MG / 0-06 Refill(s) l valsartan 19:53: [place] 51 MG Oral 00 Tablet [Entresto] GLIMEPIRIDE 2020-05 Yes GLIMEPIRID Memoria 2MG TAB 0-06 E 2MG TAB, l 19:53: Refill(s) [place] 00 0 sacubitril 2020-05 Yes 0 [place] 49 MG / 0-06 Refill(s) l valsartan 19:53: [place] 51 MG Oral 00 Tablet [Entresto] GLIMEPIRIDE 2020-05 Yes GLIMEPIRID Mem[facility] 2MG TAB 0-06 E 2MG TAB, l 19:53: Refill(s) [place] 00 0 sacubitril 2020-05 Yes 0 [place] 49 MG / 0-06 Refill(s) l valsartan 19:53: [place] 51 MG Oral 00 Tablet [Entresto] GLIMEPIRIDE 2020-05 Yes GLIMEPIRID [facility] 2MG TAB 0-06 E 2MG TAB, l 19:53: Refill(s) [place] 00 0 sacubitril 2020-05 Yes 0 Mem[facility] 49 MG / 0-06 Refill(s) l valsartan 19:53: [place] 51 MG Oral 00 Tablet [Entresto] GLIMEPIRIDE 2020-05 Yes GLIMEPIRID [facility] 2MG TAB 0-06 E 2MG TAB, l 19:53: Refill(s) [place] 00 0 sacubitril 2020-05 Yes 0 [place] 49 MG / 0-06 Refill(s) l valsartan 19:53: [place] 51 MG Oral 00 Tablet [Entresto] GLIMEPIRIDE 2020-05 Yes GLIMEPIRID [facility] 2MG TAB 0-06 E 2MG TAB, l 19:53: Refill(s) [place] 00 0 GLIMEPIRIDE 2020-05 Yes GLIMEPIRID [facility] 2MG TAB 0-06 E 2MG TAB, l 19:53: Refill(s) [place] 00 0 sacubitril 2020-05 Yes 0 [place] 49 MG / 0-06 Refill(s) l valsartan 19:53: [place] 51 MG Oral 00 Tablet [Entresto] sacubitril 2020-05 Yes 0 [place] 49 MG / 0-06 Refill(s) l valsartan 19:53: [place] 51 MG Oral 00 Tablet [Entresto] GLIMEPIRIDE 2020-05 Yes GLIMEPIRID [facility] 2MG TAB 0-06 E 2MG TAB, l 19:53: Refill(s) [place] 00 0 sacubitril 2020-05 Yes 0 Memoria 49 MG / 0-06 Refill(s) l valsartan 19:53: [place] 51 MG Oral 00 Tablet [Entresto] GLIMEPIRIDE 2020-05 Yes GLIMEPIRID Mem[facility] 2MG TAB 0-06 E 2MG TAB, l 19:53: Refill(s) [place] 00 0 sacubitril 2020-05 Yes 0 Memoria 49 MG / 0-06 Refill(s) l valsartan 19:53: [place] 51 MG Oral 00 Tablet [Entresto] Furosemide 2020-05 Yes 40 mg = 1 Me moria 40 MG Oral 0-06 tab, PO, l Tablet 19:52: Daily, # [place] 00 30 tab, 0 Refill(s) Furosemide 2020-05 Yes 40 mg = 1 Me [place] 40 MG Oral 0-06 tab, PO, l Tablet 19:52: Daily, # [place] 00 30 tab, 0 Refill(s) Furosemide 2020-05 Yes 40 mg = 1 Me [facility] 40 MG Oral 0-06 tab, PO, l Tablet 19:52: Daily, # [place] 00 30 tab, 0 Refill(s) Furosemide 2020-05 Yes 40 mg = 1 Me [facility] 40 MG Oral 0-06 tab, PO, l Tablet 19:52: Daily, # [place] 00 30 tab, 0 Refill(s) Furosemide 2020-05 Yes 40 mg = 1 Me [place] 40 MG Oral 0-06 tab, PO, l Tablet 19:52: Daily, # [place] 00 30 tab, 0 Refill(s) Furosemide 2020-05 [...] tab, PO, l Tablet 19:52: Daily, # [place] 00 30 tab, 0 Refill(s) Furosemide 2020-05 Yes 40 mg = 1 Me mor[facility] 40 MG Oral 0-06 tab, PO, l Tablet 19:52: Daily, # [place] 00 30 tab, 0 Refill(s) Furosemide 2020-05 Yes 40 mg = 1 Me [facility] 40 MG Oral 0-06 tab, PO, l Tablet 19:52: Daily, # [place] 00 30 tab, 0 Refill(s) Furosemide 2020-05 Yes 40 mg = 1 Me [place] 40 MG Oral 0-06 tab, PO, l Tablet 19:52: Daily, # [place] 00 30 tab, 0 Refill(s) Furosemide 2020-05 Yes 40 mg = 1 [facility] [place] 40 MG Oral 0-06 tab, PO, l Tablet 19:52: Daily, # [place] 00 30 tab, 0 Refill(s) Furosemide 2020-05 Yes 40 mg = 1 Me [place] 40 MG Oral 0-06 tab, PO, l Tablet 19:52: Daily, # [place] 00 30 tab, 0 Refill(s) Furosemide 2020-05 Yes 40 mg = 1 Me [place] 40 MG Oral 0-06 tab, PO, l Tablet 19:52: Daily, # [place] 00 30 tab, 0 Refill(s) Furosemide 2020-05 Yes 40 mg = 1 Me [place] 40 MG Oral 0-06 tab, PO, l Tablet 19:52: Daily, # [place] 00 30 tab, 0 Refill(s) Furosemide 2020-05 Yes 40 mg = 1 [place] 40 MG Oral 0-06 tab, PO, l Tablet 19:52: Daily, # [place] 00 30 tab, 0 Refill(s) Furosemide 2020-05 Yes 40 mg = 1 Me [place] 40 MG Oral 0-06 tab, PO, l Tablet 19:52: Daily, # [place] 30 tab, 0 Refill(s) Furosemide 2020-05 Yes [...] tab, PO, l Tablet 19:52: Daily, # [place] 30 tab, 0 Refill(s) Iron 325 Iron [...] lancets St formulary [facility]) [place] Blood Blood 2018-05 Yes Kilo as Common [...] every 4 ity of mL (0.083 00:00: ([facility]) [place] %) 00 hours. May Medical [...] Kilo 1 tablet Common [facility] Noel Noel Yes Kilo 1 tablet Common Aspirin EC Aspirin [facility] Low Dose Low Dose [facility] Lisinopril Lisinopril Yes Kilo 1 tablet Common [facility] Furosemide Furosemide Yes Kilo 1 tablet Common [facility] [facility] Coreg Coreg Yes Kilo 1 tablet Common [facility] Metformin Metformin Yes Kilo 1 tablet Common HCl HCl Hernandez with meals [facility] Entresto Entresto Yes Kilo 1 tablet C ommon 49/51mg 49/51mg [facility] metFORMIN metFORMIN No metFORMIN HCl 500 [...] Potassium Chloride Chloride Chloride Arleen ER 20 Raleen ER 20 Arleen ER 20 MEQ MEQ [...] Carvedilol 6.25 MG 6.25 MG 6.25 MG carvedilol carvedilol No carvedilol [place] 6.25 mg 6.25 mg 6.25 mg da tablet TAKE tablet TAKE tablet Medical 1 TABLET BY 1 TABLET BY TAKE 1 Group MOUTH TWICE MOUTH TWICE TABLET BY DAILY DAILY MOUTH TWICE DAILY Furosemide Furosemide No QD Furosemide 40 MG [...] MG HCl 50 MG HCl 50 MG clindamycin clindamycin No clindamyci [place] HCl [...] 40 MG 40 MG 40 MG Entresto 49 Entresto 49 No Entresto [place] mg-51 mg mg-51 mg 49 mg-51 da tablet tablet mg tablet Medica l Group Noel Noel No 1{table QD Noel [...] HCl 200 MG t} HCl 200 MG furosemide furosemide No furosemide [place] 40 [...] Carvedilol 6.25 MG 6.25 MG 6.25 MG glimepiride glimepiride No glimepirid [place] 2 mg tablet 2 mg tablet e 2 mg da TAKE 1 TAKE 1 tablet Medical TABLET BY TABLET BY TAKE 1 Adela up MOUTH ONCE MOUTH ONCE TABLET BY DAILY FOR DAILY FOR MOUTH ONCE 90 DAYS 90 DAYS DAILY FOR 90 DAYS Bumetanide Bumetanide No 1{table QD Bumetanide 1 [...] Furosemide 40 MG 40 MG 40 MG ipratropium ipratropium No ipratropiu [place] bromide [...] Carvedilol 6.25 MG 6.25 MG 6.25 MG iron 65 mg iron 65 mg No iron 65 mg [place] tablet Take tablet Take tablet da by oral by oral Take by Medica l route. route. oral Group route. Bumetanide Bumetanide No 1{table QD Bumetanide 1 [...] 20 Arleen ER 20 MEQ MEQ MEQ Spironolact Spironolact No 1{table Spironolac one [...] 10 MG 10 MG t} 10 MG Mavyret Mavyret No 3{table QD Mavyret 100-40 MG 100-40 MG ts} 100-40 MG Aptiom 200 Aptiom 200 No QD Aptiom 200 MG MG MG Potassium Potassium No Potassium Chloride Chloride Chloride Arleen ER 20 Arleen ER 20 Arleen ER 20 MEQ MEQ MEQ Klor-Con 10 Klor-Con 10 No 1{table QD Klor-Con 10 MEQ 10 MEQ t} 10 10 MEQ Meclizine Meclizine No 1{table TID Meclizine HCl 12.5 MG HCl 12.5 MG t_as_ne HCl 12.5 eded} MG levofloxaci levofloxaci No levofloxac [place] n 500 mg n 500 mg in 500 mg da tablet TAKE tablet TAKE tablet Medical 1 TABLET BY 1 TABLET BY TAKE 1 Group MOUTH EVERY MOUTH EVERY TABLET BY DAY FOR 7 DAY FOR 7 MOUTH DAYS DAYS EVERY DAY FOR 7 DAYS Carvedilol Carvedilol No Carvedilol 6.25 MG 6.25 MG 6.25 MG Glimepiride Glimepiride No Glimepirid 2 MG 2 MG e 2 MG traMADol traMADol No traMADol HCl 50 MG HCl 50 MG HCl 50 MG Amiodarone Amiodarone No 1{table QD Amiodarone HCl 200 MG HCl 200 MG t} HCl 200 MG Bumetanide Bumetanide No 1{table QD Bumetanide 1 MG 1 MG t} 1 MG Noel Noel No 1{table QD Noel Aspirin EC Aspirin EC t} Aspirin EC Low Dose 81 Low Dose 81 Low Dose MG MG 81 MG Aptiom 200 Aptiom 200 No QD Aptiom 200 MG MG MG Potassium Potassium No Potassium Chloride Chloride Chloride Arleen ER 20 Arleen ER 20 Arleen ER 20 MEQ MEQ MEQ Carvedilol Carvedilol No Carvedilol 6.25 MG 6.25 MG 6.25 MG Mavyret Mavyret No 3{table QD Mavyret 100-40 MG 100-40 MG ts} 100-40 MG meclizine meclizine No meclizine [place] 25 mg 25 mg 25 mg da tablet TAKE tablet TAKE tablet Medical 1 TABLET BY 1 TABLET BY TAKE 1 Group MOUTH THREE MOUTH THREE TABLET BY TIMES DAILY TIMES DAILY MOUTH THREE TIMES DAILY Entresto Entresto No 1{table BID Entresto 49/51mg 49/51mg t} 49/51mg 49/51mg 49/51mg 49/51mg Klor-Con 10 Klor-Con 10 No 1{table QD Klor-Con 10 MEQ 10 MEQ t} 10 10 MEQ Meclizine Meclizine No 1{table TID Meclizine HCl 12.5 MG HCl 12.5 MG t_as_ne HCl 12.5 eded} MG Spironolact Spironolact No 1{table Spironolac one 25 MG one 25 MG t} tone 25 MG Glimepiride Glimepiride No Glimepirid 2 MG 2 MG e 2 MG Bumetanide Bumetanide No 1{table QD Bumetanide 1 MG 1 MG t} 1 MG traMADol traMADol No traMADol HCl 50 MG HCl 50 MG HCl 50 MG metFORMIN metFORMIN No metFORMIN HCl 500 MG HCl 500 MG HCl 500 MG Amiodarone Amiodarone No 1{table QD Amiodarone HCl 200 MG HCl 200 MG t} HCl 200 MG Furosemide Furosemide No QD Furosemide 40 MG 40 MG 40 MG metformin metformin No metformin [place] 500 mg 500 mg 500 mg da tablet TAKE tablet TAKE tablet Medical 1 TABLET BY 1 TABLET BY TAKE 1 Group MOUTH TWICE MOUTH TWICE TABLET BY DAILY WITH DAILY WITH MOUTH MEALS FOR MEALS FOR TWICE 90 DAYS 90 DAYS DAILY WITH MEALS FOR 90 DAYS Jardiance Jardiance No 1{table QD Jardiance 10 MG 10 MG t} 10 MG Noel Noel No 1{table QD Noel Aspirin EC Aspirin EC t} Aspirin EC Low Dose 81 Low Dose 81 Low Dose MG MG 81 MG Aptiom 200 Aptiom 200 No QD Aptiom 200 MG MG MG Potassium Potassium No Potassium Chloride Chloride Chloride Arleen ER 20 Arleen ER 20 Arleen ER 20 MEQ MEQ MEQ Carvedilol Carvedilol No Carvedilol 6.25 MG 6.25 MG 6.25 MG Mavyret Mavyret No 3{table QD Mavyret 100-40 MG 100-40 MG ts} 100-40 MG Entresto Entresto No 1{table BID Entresto 49/51mg 49/51mg t} 49/51mg 49/51mg 49/51mg 49/51mg Klor-Con 10 Klor-Con 10 No 1{table QD Klor-Con 10 MEQ 10 MEQ t} 10 10 MEQ Meclizine Meclizine No 1{table TID Meclizine HCl 12.5 MG HCl 12.5 MG t_as_ne HCl 12.5 eded} MG Spironolact Spironolact No 1{table Spironolac one 25 MG one 25 MG t} tone 25 MG Glimepiride Glimepiride No Glimepirid 2 MG 2 MG e 2 MG Bumetanide Bumetanide No 1{table QD Bumetanide 1 MG 1 MG t} 1 MG traMADol traMADol No traMADol HCl 50 MG HCl 50 MG HCl 50 MG metFORMIN metFORMIN No metFORMIN HCl 500 MG HCl 500 MG HCl 500 MG Amiodarone Amiodarone No 1{table QD Amiodarone HCl 200 MG HCl 200 MG t} HCl 200 MG Furosemide Furosemide No QD Furosemide 40 MG 40 MG 40 MG Jardiance Jardiance No 1{table QD Jardiance 10 MG 10 MG t} 10 MG Entresto Entresto No 1{table BID Entresto 49/51mg 49/51mg t} 49/51mg 49/51mg 49/51mg 49/51mg omeprazole omeprazole No omeprazole [place] 40 mg [...] 05-23 [facility] - [facility]00 [facility] Immunizations Ordered Filled Date Status Comments Source Immunization Name Immunization Name Influenza Virus 2022-04-24 Completed [facility] Vaccine [facility]comb Quad 00:00:00 [facility] IM, Preserv and ABX Branc h Free 18-64 YRS Influenza Virus 2022-04-24 Completed [facility] Vaccine Recomb Quad 00:00:00 [facility] IM, Preserv and ABX Branc h Free 18-64 YRS Influenza Virus 2022-04-24 Completed [facility] Vaccine Recomb Quad 00:00:00 [facility] IM, Preserv and ABX Branc h Free 18-64 YRS Influenza Virus 2022-04-24 Completed [facility] Vaccine Recomb Quad 00:00:00 [facility] IM, Preserv and ABX Branc h Free 18-64 YRS Influenza Virus 2022-04-24 Completed [facility] Vaccine Recomb Quad 00:00:00 [facility] IM, Preserv and ABX Branc h Free 18-64 YRS Influenza Virus 2022-04-24 Completed [facility] Vaccine Recomb Quad 00:00:00 [facility] IM, Preserv and ABX Branc h [...] Completed [facility]it y of Conjugate, PCV20 00:00:00 [facility] dical (Prevnar 20) Branch Pneumococcal 20 2022-01-25 Completed [facility]it [facility] of Conjugate, PCV20 00:00:00 [facility] dical (Prevnar 20) Branch Pneumococcal 20 2022-01-25 Completed [facility]it [facility] of Conjugate, PCV20 00:00:00 [facility] dical (Prevnar 20) Branch Pneumococcal 20 2022-01-25 Completed [facility]it [facility] of Conjugate, PCV20 00:00:00 [facility] dical (Prevnar 20) Branch Pneumococcal 20 2022-01-25 Completed [facility]it [facility] of Conjugate, PCV20 00:00:00 [facility] dical (Prevnar 20) Branch Pneumococcal 20 2022-01-25 Completed [facility]it [facility] of Conjugate, PCV20 00:00:00 [facility] dical (Prevnar 20) Branch Pneumococcal 20 2022-01-25 Completed [facility]it [facility] of Conjugate, PCV20 00:00:00 [facility] dical (Prevnar 20) Branch Pneumococcal 20 2022-01-25 Completed [facility] of Conjugate, PCV20 00:00:00 [facility] dical (Prevnar 20) Branch Pneumococcal 20 2022-01-25 [...] [facility] Conjugate, PCV20 00:00:00 [facility] (Prevnar 20) Branch Pneumococcal 20 2022-01-25 Completed [facility] Conjugate, PCV20 00:00:00 [facility] (Prevnar 20) Branch Pneumococcal 20 2022-01-25 Completed [facility] Conjugate, PCV20 00:00:00 [facility] (Prevnar 20) Branch Pneumococcal 20 2022-01-25 Completed [facility] Conjugate, PCV20 00:00:00 [facility] (Prevnar 20) Branch Pneumococcal 20 2022-01-25 Completed [facility] Conjugate, PCV20 00:00:00 [facility] (Prevnar 20) Branch Pneumococcal 20 2022-01-25 Completed [facility] Conjugate, PCV20 00:00:00 [facility] (Prevnar 20) Branch Pneumococcal 20 2022-01-25 Completed [facility] Conjugate, PCV20 00:00:00 [facility] (Prevnar 20) Branch Pneumococcal 20 2022-01-25 Completed [facility] of Conjugate, PCV20 00:00:00 [facility] dical (Prevnar 20) Branch [facility] COVID19 [facility] COVID19 2021-06-02 Completed [facility]ine (Low Dose Vaccine (Low Dose 08:18:[address] [facility] Booster) Booster) [facility] [address] COVID19 2021-06-02 Completed [facility]ine (Low Dose Vaccine (Low Dose 08:18:[address] [facility] Booster) Booster) [facility] [address] COVID19 2021-06-02 Completed [facility] Vaccine (Low Dose Vaccine (Low Dose 08:18:[address] [facility] Booster) Booster) [facility] [address] COVID19 2021-06-02 Completed [facility] Vaccine (Low Dose Vaccine (Low Dose 08:18:[address] [facility] Booster) Booster) [facility] [address] COVID19 2021-06-02 Completed [facility] Vaccine (Low Dose Vaccine (Low Dose 08:18:[address] [facility] Booster) Booster) [facility] [address] COVID19 2021-06-02 Completed [facility] Vaccine (Low Dose Vaccine (Low Dose 08:18:[address] [facility] Booster) Booster) [facility] COVID19 [facility] COVID19 2021-06-02 Completed [facility] Vaccine (Low Dose Vaccine (Low Dose 08:18:[address] [facility] Booster) Booster) [facility] COVID[address] COVID19 2021-06-02 Completed [facility] - Vaccine (Low Dose Vaccine (Low Dose 08:18:[address] [facility] Booster) Booster) [facility] [address] COVID19 2021-06-02 Completed [facility] Vaccine (Low Dose Vaccine (Low Dose 08:18:[address] [facility] Booster) Booster) [facility] COVID19 [facility] COVID19 2021-06-02 Completed [facility] Vaccine (Low Dose Vaccine (Low Dose 08:18:[address] [facility] Booster) Booster) [facility] COVID19 [facility] COVID19 2021-06-02 Completed [facility] Vaccine (Low Dose Vaccine (Low Dose 08:18:[address] [facility] Booster) Booster) [facility] [address] COVID19 2021-06-02 Completed [facility] Vaccine (Low Dose Vaccine (Low Dose 08:18:[address] [facility] Booster) Booster) [facility] COVID19 [facility] COVID19 2021-06-02 Completed [facility] Vaccine (Low Dose Vaccine (Low Dose 08:18:[address] [facility] Booster) Booster) [facility] [address] COVID19 2021-06-02 Completed [facility]ine (Low Dose Vaccine (Low Dose 08:18:[address] [facility] Booster) Booster) [facility] COVID19 [facility] COVID19 2021-06-02 Completed [facility] Vaccine (Low Dose Vaccine (Low Dose 08:18:[address] [facility] Booster) Booster) [facility] COVID19 [facility] COVID19 2021-06-02 Completed [facility]ine (Low Dose Vaccine (Low Dose 08:18:[address] [facility] Booster) Booster) [facility] [address] COVID19 2021-06-02 Completed [facility] (Low Dose Vaccine (Low Dose 08:18:[address] [facility] Booster) Booster) [facility] COVID19 [facility] COVID19 2021-06-02 Completed [facility] Vaccine (Low Dose Vaccine (Low Dose 08:18:[address] [facility] Booster) Booster) [facility] COVID19 [facility] COVID19 2021-06-02 Completed [facility] Vaccine (Low Dose Vaccine (Low Dose 08:18:[address] [facility] Booster) Booster) [facility] of VACCINE - (MODERNA) 00:00:00 [facility] SARS-COV-2 COVID-19 2021-06-02 Completed [facility]ive rsity of VACCINE - (MODERNA) 00:00:00 [facility] SARS-COV-2 COVID-19 2021-06-02 Completed [facility]ive rsity of VACCINE - (MODERNA) 00:00:00 [facility] SARS-COV-2 COVID-19 2021-06-02 Completed [facility]ive [facility] of VACCINE - (MODERNA) 00:00:00 [facility] SARS-COV-2 COVID-19 2021-06-02 Completed [facility]ive rs[facility] of VACCINE - (MODERNA) 00:00:00 [facility] SARS-COV-2 COVID-19 2021-06-02 Completed [facility]ive rs[facility] of VACCINE - (MODERNA) 00:00:00 [facility] SARS-COV-2 COVID-19 2021-06-02 Completed [facility]ive [facility] of VACCINE - (MODERNA) 00:00:00 [facility] SARS-COV-2 COVID-19 2021-06-02 Completed [facility] of VACCINE - (MODERNA) 00:00:00 [facility] SARS-COV-2 COVID-19 2021-06-02 Completed [facility]ive [facility] of VACCINE - (MODERNA) 00:00:00 [facility] SARS-COV-2 COVID-19 2021-06-02 Completed [facility] of VACCINE - (MODERNA) 00:00:00 [facility] SARS-COV-2 COVID-19 2021-06-02 Completed [facility]ive rs[facility] of VACCINE - (MODERNA) 00:00:00 [facility] SARS-COV-2 COVID-19 2021-06-02 Completed [facility]ive [facility] of VACCINE - (MODERNA) 00:00:00 [facility] SARS-COV-2 COVID-19 2021-06-02 Completed [facility] of VACCINE - (MODERNA) 00:00:00 [facility] SARS-COV-2 COVID-19 2021-06-02 Completed [facility] of VACCINE - (MODERNA) 00:00:00 [facility] SARS-COV-2 COVID-19 2021-06-02 Completed [facility]ive rs[facility] of VACCINE - (MODERNA) 00:00:00 [facility] SARS-COV-2 COVID-19 2021-06-02 Completed [facility] of VACCINE - (MODERNA) 00:00:00 [facility] SARS-COV-2 COVID-19 2021-06-02 Completed [facility] of VACCINE - (MODERNA) 00:00:00 [facility] SARS-COV-2 COVID-19 2021-06-02 Completed [facility] of VACCINE - (MODERNA) 00:00:00 [facility] SARS-COV-2 COVID-19 2021-06-02 Completed [facility] of VACCINE - (MODERNA) 00:00:00 [facility] SARS-COV-2 COVID-19 2021-06-02 Completed [facility]ive rs[facility] of VACCINE - (MODERNA) 00:00:00 [facility] SARS-COV-2 COVID-19 2021-06-02 Completed [facility]ive rsity of VACCINE - (MODERNA) 00:00:00 [facility] SARS-COV-2 COVID-19 2021-06-02 Completed [facility]ive [facility] of VACCINE - (MODERNA) 00:00:00 [facility] SARS-COV-2 COVID-19 2021-06-02 Completed [facility] of VACCINE - (MODERNA) 00:00:00 [facility] SARS-COV-2 COVID-19 2021-06-02 Completed [facility]ive rs[facility] of VACCINE - (MODERNA) 00:00:00 [facility] SARS-COV-2 COVID-19 2021-06-02 Completed [facility] of VACCINE - (MODERNA) 00:00:00 [facility] SARS-COV-2 COVID-19 2021-06-02 Completed [facility]ive rs[facility] of VACCINE - (MODERNA) 00:00:00 [facility] Fluzone Fluzone 2021-02-21 Completed [facility] - 14:39:00 [facility] Fluzone Fluzone 2021-02-21 Completed [facility] - 14:39:00 [facility] Fluzone Fluzone 2021-02-21 Completed [facility] - 14:39:00 [facility] Fluzone Fluzone 2021-02-21 Completed [facility] - 14:39:00 [facility] Fluzone Fluzone 2021-02-21 Completed [facility] - 14:39:00 [facility] Fluzone Fluzone 2021-02-21 Completed [facility] - 14:39:00 [facility] Fluzone Fluzone 2021-02-21 Completed [facility] - 14:39:00 [facility] Fluzone Fluzone 2021-02-21 Completed [facility] - 14:39:00 [facility] Fluzone Fluzone 2021-02-21 Completed [facility] - 14:39:00 [facility] Fluzone Fluzone 2021-02-21 Completed [facility] - 14:39:00 [facility] Fluzone Fluzone 2021-02-21 Completed [facility] - 14:39:00 [facility] Fluzone Fluzone 2021-02-21 Completed [facility] - 14:39:00 [facility] Fluzone Fluzone 2021-02-21 Completed [facility] - 14:39:00 [facility] Fluzone Fluzone 2021-02-21 Completed [facility] - 14:39:00 [facility] Fluzone Fluzone 2021-02-21 Completed [facility] - 14:39:00 [facility] Fluzone Fluzone 2021-02-21 Completed [facility] - 14:39:00 [facility] Fluzone Fluzone 2021-02-21 Completed [facility] - 14:39:00 [facility] Fluzone Fluzone 2021-02-21 Completed [facility] - 14:39:00 [facility] Fluzone Fluzone 2021-02-21 Completed [facility] - 14:39:00 [facility] Fluzone Fluzone 2021-02-21 Completed [facility] - 14:39:00 [facility] Fluzone Fluzone 2021-02-21 Completed [facility] - 14:39:00 [facility] Fluzone Fluzone 2021-02-21 Completed [facility] - 14:39:00 [facility] Fluzone Fluzone 2021-02-21 Completed [facility] - 14:39:00 [facility] Fluzone Fluzone 2021-02-21 Completed [facility] - 14:39:00 [facility] Fluzone Fluzone 2021-02-21 Completed [facility] - 14:39:00 [facility] Fluzone Fluzone 2021-02-21 Completed [facility] - 14:39:00 [facility] Fluzone Fluzone 2021-02-21 Completed [facility] - 14:39:00 [facility] Influenza Virus 2021-02-21 Completed [facility] Vaccine Quad .5 mL 00:00:00 [facility] 6+ MO Branch Influenza Virus 2021-02-21 Completed [facility]it y of Vaccine (3+ yrs) 00:00:00 [facility] dical Branch Influenza Virus 2021-02-21 Completed [facility] y of Vaccine Quad .5 mL 00:00:00 [facility] 6+ MO Branch Influenza Virus 2021-02-21 Completed [facility] of Vaccine (3+ yrs) 00:00:00 [facility] dical Branch Influenza Virus 2021-02-21 Completed [facility] of Vaccine Quad .5 mL 00:00:00 [facility] 6+ MO Branch Influenza Virus 2021-02-21 Completed [facility] y of Vaccine (3+ yrs) 00:00:00 [facility] dical Branch Influenza Virus 2021-02-21 Completed [facility] of Vaccine Quad .5 mL 00:00:00 [facility] 6+ MO Branch Influenza Virus 2021-02-21 Completed [facility] of Vaccine (3+ yrs) 00:00:00 [facility] dical Branch Influenza Virus 2021-02-21 Completed [facility] of Vaccine Quad .5 mL 00:00:00 [facility] 6+ MO Branch Influenza Virus 2021-02-21 Completed [facility] of Vaccine (3+ yrs) 00:00:00 [facility] dical Branch Influenza Virus 2021-02-21 Completed [facility] of Vaccine Quad .5 mL 00:00:00 [facility] 6+ MO Branch Influenza Virus 2021-02-21 Completed [facility] of Vaccine (3+ yrs) 00:00:00 [facility] dical Branch Influenza Virus 2021-02-21 Completed [facility] of Vaccine Quad .5 mL 00:00:00 [facility] 6+ MO Branch Influenza Virus 2021-02-21 Completed [facility] of Vaccine (3+ yrs) 00:00:00 [facility] dical Branch Influenza Virus 2021-02-21 Completed [facility] y of Vaccine Quad .5 mL 00:00:00 [facility] IM 6+ MO Branch Influenza Virus 2021-02-21 Completed [facility] y of Vaccine (3+ yrs) 00:00:00 [facility] dical Branch Influenza Virus 2021-02-21 Completed [facility] of Vaccine Quad .5 mL 00:00:00 [facility] IM 6+ MO Branch Influenza Virus 2021-02-21 Completed [facility] y of Vaccine (3+ yrs) 00:00:00 [facility] dical Branch Influenza Virus 2021-02-21 Completed [facility] of Vaccine Quad .5 mL 00:00:00 [facility] 6+ MO Branch Influenza Virus 2021-02-21 Completed [facility] y of Vaccine (3+ yrs) 00:00:00 [facility] dical Branch Influenza Virus 2021-02-21 Completed [facility] y of Vaccine Quad .5 mL 00:00:00 [facility] 6+ MO Branch Influenza Virus 2021-02-21 Completed [facility] y of Vaccine (3+ yrs) 00:00:00 [facility] dical Branch Influenza Virus 2021-02-21 Completed [facility] y of Vaccine Quad .5 mL 00:00:00 [facility] 6+ MO Branch Influenza Virus 2021-02-21 Completed [facility] of Vaccine (3+ yrs) 00:00:00 [facility] dical Branch Influenza Virus 2021-02-21 Completed [facility] y of Vaccine Quad .5 mL 00:00:00 [facility] IM 6+ MO Branch Influenza Virus 2021-02-21 Completed [facility] y of Vaccine (3+ yrs) 00:00:00 [facility] dical Branch Influenza Virus 2021-02-21 Completed [facility] y of Vaccine Quad .5 mL 00:00:00 [facility] IM 6+ MO Branch Influenza Virus 2021-02-21 Completed [facility] of Vaccine (3+ yrs) 00:00:00 [facility] dical Branch Influenza Virus 2021-02-21 Completed [facility] y of Vaccine Quad .5 mL 00:00:00 [facility] IM 6+ MO Branch Influenza Virus 2021-02-21 Completed [facility] of Vaccine (3+ yrs) 00:00:00 [facility] dical Branch Influenza Virus 2021-02-21 Completed [facility] of Vaccine Quad .5 mL 00:00:00 [facility] IM 6+ MO Branch Influenza Virus 2021-02-21 Completed [facility] y of Vaccine (3+ yrs) 00:00:00 [facility] dical Branch Influenza Virus 2021-02-21 Completed [facility] y of Vaccine Quad .5 mL 00:00:00 [facility] IM 6+ MO Branch Influenza Virus 2021-02-21 Completed [facility] of Vaccine (3+ yrs) 00:00:00 [facility] dical Branch Influenza Virus 2021-02-21 Completed [facility] of Vaccine Quad .5 mL 00:00:00 [facility] IM 6+ MO Branch Influenza Virus 2021-02-21 Completed [facility] y of Vaccine (3+ yrs) 00:00:00 [facility] dical Branch Influenza Virus 2021-02-21 Completed [facility] of Vaccine Quad .5 mL 00:00:00 [facility] 6+ MO Branch Influenza Virus 2021-02-21 Completed [facility] y of Vaccine (3+ yrs) 00:00:00 [facility] dical Branch Influenza Virus 2021-02-21 Completed [facility] of Vaccine Quad .5 mL 00:00:00 [facility] 6+ MO Branch Influenza Virus 2021-02-21 Completed [facility] of Vaccine (3+ yrs) 00:00:00 [facility] dical Branch Influenza Virus 2021-02-21 Completed [facility] of Vaccine Quad .5 mL 00:00:00 [facility] 6+ MO Branch Influenza Virus 2021-02-21 Completed [facility] of Vaccine (3+ yrs) 00:00:00 [facility] dical Branch Influenza Virus 2021-02-21 Completed [facility] of Vaccine Quad .5 mL 00:00:00 [facility] 6+ MO Branch Influenza Virus 2021-02-21 Completed [facility] of Vaccine (3+ yrs) 00:00:00 [facility] dical Branch Influenza Virus 2021-02-21 Completed [facility] of Vaccine Quad .5 mL 00:00:00 [facility] IM 6+ MO Branch Influenza Virus 2021-02-21 Completed [facility] of Vaccine (3+ yrs) 00:00:00 [facility] dical Branch Influenza Virus 2021-02-21 Completed [facility] of Vaccine Quad .5 mL 00:00:00 [facility] 6+ MO Branch Influenza Virus 2021-02-21 Completed [facility] of Vaccine (3+ yrs) 00:00:00 [facility] dical Branch Influenza Virus 2021-02-21 Completed [facility] of Vaccine Quad .5 mL 00:00:00 [facility] 6+ MO Branch Influenza Virus 2021-02-21 Completed [facility] y of Vaccine (3+ yrs) 00:00:00 [facility] dicga Branch Influenza Virus 2021-02-21 Completed [facility] of Vaccine Quad .5 mL 00:00:00 [facility] 6+ MO Branch Influenza Virus 2021-02-21 Completed [facility] Vaccine (3+ yrs) 00:00:00 [facility] Moderna COVID-19 Moderna COVID-19 2020-10-03 Completed [facility] Vaccine Vaccine 14:55:00 [facility] Moderna COVID-19 Moderna COVID-19 2020-10-03 Completed [facility] - Vaccine Vaccine 14:55:00 [facility] Moderna COVID-19 Moderna COVID-19 2020-10-03 Completed [facility] - Vaccine Vaccine 14:55:00 [facility] Moderna COVID-19 Moderna COVID-19 2020-10-03 Completed [facility] - Vaccine Vaccine 14:55:00 [facility] Moderna COVID-19 Moderna COVID-19 2020-10-03 Completed [facility] - Vaccine Vaccine 14:55:00 [facility] Moderna COVID-19 Moderna COVID-19 2020-10-03 Completed [facility] - Vaccine Vaccine 14:55:00 [facility] Moderna COVID-19 Moderna COVID-19 2020-10-03 Completed [facility] - Vaccine Vaccine 14:55:00 [facility] Moderna COVID-19 Moderna COVID-19 2020-10-03 Completed [facility] - Vaccine Vaccine 14:55:00 [facility] Moderna COVID-19 Moderna COVID-19 2020-10-03 Completed [facility] - Vaccine Vaccine 14:55:00 [facility] Moderna COVID-19 Moderna COVID-19 2020-10-03 Completed [facility] - Vaccine Vaccine 14:55:00 [facility] Moderna COVID-19 Moderna COVID-19 2020-10-03 Completed [facility] - Vaccine Vaccine 14:55:00 [facility] Moderna COVID-19 Moderna COVID-19 2020-10-03 Completed [facility] - Vaccine Vaccine 14:55:00 [facility] Moderna COVID-19 Moderna COVID-19 2020-10-03 Completed [facility] - Vaccine Vaccine 14:55:00 [facility] Moderna COVID-19 Moderna COVID-19 2020-10-03 Completed [facility] - Vaccine Vaccine 14:55:00 [facility] Moderna COVID-19 Moderna COVID-19 2020-10-03 Completed [facility] - Vaccine Vaccine 14:55:00 [facility] Moderna COVID-19 Moderna COVID-19 2020-10-03 Completed [facility] - Vaccine Vaccine 14:55:00 [facility] Moderna COVID-19 Moderna COVID-19 2020-10-03 Completed [facility] - Vaccine Vaccine 14:55:00 [facility] Moderna COVID-19 Moderna COVID-19 2020-10-03 Completed [facility] - Vaccine Vaccine 14:55:00 [facility] Moderna COVID-19 Moderna COVID-19 2020-10-03 Completed [facility] - Vaccine Vaccine 14:55:00 [facility] Moderna COVID-19 Moderna COVID-19 2020-10-03 Completed [facility] - Vaccine Vaccine 14:55:00 [facility] Moderna COVID-19 Moderna COVID-19 2020-10-03 Completed [facility] - Vaccine Vaccine 14:55:00 [facility] Moderna COVID-19 Moderna COVID-19 2020-10-03 Completed [facility] - Vaccine Vaccine 14:55:00 [facility] Moderna COVID-19 Moderna COVID-19 2020-10-03 Completed [facility] - Vaccine Vaccine 14:55:00 [facility] Moderna COVID-19 Moderna COVID-19 2020-10-03 Completed [facility] - Vaccine Vaccine 14:55:00 [facility] Moderna COVID-19 Moderna COVID-19 2020-10-03 Completed [facility] - Vaccine Vaccine 14:55:00 [facility] Moderna COVID-19 Moderna COVID-19 2020-10-03 Completed [facility] - Vaccine Vaccine 14:55:00 [facility] Moderna COVID-19 Moderna COVID-19 2020-10-03 Completed [facility] - Vaccine Vaccine 14:55:00 [facility] SARS-COV-2 COVID-19 2020-10-03 Completed [facility]ive rsity of VACCINE - (MODERNA) 00:00:00 [facility] SARS-COV-2 COVID-19 2020-10-03 Completed [facility]ive rsity of VACCINE - (MODERNA) 00:00:00 [facility] SARS-COV-2 COVID-19 2020-10-03 Completed [facility]ive rsity of VACCINE - (MODERNA) 00:00:00 [facility] SARS-COV-2 COVID-19 2020-10-03 Completed [facility]ive rsity of VACCINE - (MODERNA) 00:00:00 [facility] SARS-COV-2 COVID-19 2020-10-03 Completed [facility]ive rsity of VACCINE - (MODERNA) 00:00:00 [facility] SARS-COV-2 COVID-19 2020-10-03 Completed [facility]ive rsity of VACCINE - (MODERNA) 00:00:00 [facility] SARS-COV-2 COVID-19 2020-10-03 Completed [facility]ive rsity of VACCINE - (MODERNA) 00:00:00 [facility] SARS-COV-2 COVID-19 2020-10-03 Completed [facility]ive [facility] of VACCINE - (MODERNA) 00:00:00 [facility] SARS-COV-2 COVID-19 2020-10-03 Completed [facility]ive rs[facility] of VACCINE - (MODERNA) 00:00:00 [facility] SARS-COV-2 COVID-19 2020-10-03 Completed [facility]ive rsity of VACCINE - (MODERNA) 00:00:00 [facility] SARS-COV-2 COVID-19 2020-10-03 Completed [facility]ive rsity of VACCINE - (MODERNA) 00:00:00 [facility] SARS-COV-2 COVID-19 2020-10-03 Completed [facility]ive rsity of VACCINE - (MODERNA) 00:00:00 [facility] SARS-COV-2 COVID-19 2020-10-03 Completed [facility]ive rsity of VACCINE - (MODERNA) 00:00:00 [facility] SARS-COV-2 COVID-19 2020-10-03 Completed Unive rsity of VACCINE - (MODERNA) 00:00:00 [facility] SARS-COV-2 COVID-19 2020-10-03 Completed [facility]ive rsity of VACCINE - (MODERNA) 00:00:00 [facility] SARS-COV-2 COVID-19 2020-10-03 Completed [facility]ive rsity of VACCINE - (MODERNA) 00:00:00 [facility] SARS-COV-2 COVID-19 2020-10-03 Completed [facility]ive rsity of VACCINE - (MODERNA) 00:00:00 [facility] SARS-COV-2 COVID-19 2020-10-03 Completed [facility]ive [facility]ity of VACCINE - (MODERNA) 00:00:00 [facility] SARS-COV-2 COVID-19 2020-10-03 Completed [facility]ive rs[facility] of VACCINE - (MODERNA) 00:00:00 [facility] SARS-COV-2 COVID-19 2020-10-03 Completed [facility]ive rsity of VACCINE - (MODERNA) 00:00:00 [facility] SARS-COV-2 COVID-19 2020-10-03 Completed [facility]ive rsity of VACCINE - (MODERNA) 00:00:00 [facility] SARS-COV-2 COVID-19 2020-10-03 Completed [facility]ive rsity of VACCINE - (MODERNA) 00:00:00 [facility] SARS-COV-2 COVID-19 2020-10-03 Completed [facility]ive rsity of VACCINE - (MODERNA) 00:00:00 [facility] SARS-COV-2 COVID-19 2020-10-03 Completed [facility]ive rsity of VACCINE - (MODERNA) 00:00:00 [facility] SARS-COV-2 COVID-19 2020-10-03 Completed [facility]ive [facility] of VACCINE - (MODERNA) 00:00:00 [facility] SARS-COV-2 COVID-19 2020-10-03 Completed [facility]ive [facility] of VACCINE - (MODERNA) 00:00:00 [facility] Moderna COVID-19 Moderna COVID-19 2020-09-05 Completed [facility] Vaccine Vaccine 10:56:00 [facility] Moderna COVID-19 Moderna COVID-19 2020-09-05 Completed [facility] - Vaccine Vaccine 10:56:00 [facility] Moderna COVID-19 Moderna COVID-19 2020-09-05 Completed [facility] - Vaccine Vaccine 10:56:00 [facility] Moderna COVID-19 Moderna COVID-19 2020-09-05 Completed [facility] - Vaccine Vaccine 10:56:00 [facility] Moderna COVID-19 Moderna COVID-19 2020-09-05 Completed [facility] - Vaccine Vaccine 10:56:00 [facility] Moderna COVID-19 Moderna COVID-19 2020-09-05 Completed [facility] - Vaccine Vaccine 10:56:00 [facility] Moderna COVID-19 Moderna COVID-19 2020-09-05 Completed [facility] - Vaccine Vaccine 10:56:00 [facility] Moderna COVID-19 Moderna COVID-19 2020-09-05 Completed [facility] - Vaccine Vaccine 10:56:00 [facility] Moderna COVID-19 Moderna COVID-19 2020-09-05 Completed [facility] - Vaccine Vaccine 10:56:00 [facility] Moderna COVID-19 Moderna COVID-19 2020-09-05 Completed [facility] - Vaccine Vaccine 10:56:00 [facility] Moderna COVID-19 Moderna COVID-19 2020-09-05 Completed [facility] - Vaccine Vaccine 10:56:00 [facility] Moderna COVID-19 Moderna COVID-19 2020-09-05 Completed [facility] - Vaccine Vaccine 10:56:00 [facility] Moderna COVID-19 Moderna COVID-19 2020-09-05 Completed [facility] - Vaccine Vaccine 10:56:00 [facility] Moderna COVID-19 Moderna COVID-19 2020-09-05 Completed [facility] - Vaccine Vaccine 10:56:00 [facility] Moderna COVID-19 Moderna COVID-19 2020-09-05 Completed [facility] - Vaccine Vaccine 10:56:00 [facility] Moderna COVID-19 Moderna COVID-19 2020-09-05 Completed [facility] - Vaccine Vaccine 10:56:00 [facility] Moderna COVID-19 Moderna COVID-19 2020-09-05 Completed [facility] - Vaccine Vaccine 10:56:00 [facility] Moderna COVID-19 Moderna COVID-19 2020-09-05 Completed [facility] - Vaccine Vaccine 10:56:00 [facility] Moderna COVID-19 Moderna COVID-19 2020-09-05 Completed [facility] - Vaccine Vaccine 10:56:00 [facility] Moderna COVID-19 Moderna COVID-19 2020-09-05 Completed [facility] - Vaccine Vaccine 10:56:00 [facility] Moderna COVID-19 Moderna COVID-19 2020-09-05 Completed [facility] - Vaccine Vaccine 10:56:00 [facility] Moderna COVID-19 Moderna COVID-19 2020-09-05 Completed [facility] - Vaccine Vaccine 10:56:00 [facility] Moderna COVID-19 Moderna COVID-19 2020-09-05 Completed [facility] - Vaccine Vaccine 10:56:00 [facility] Moderna COVID-19 Moderna COVID-19 2020-09-05 Completed [facility] - Vaccine Vaccine 10:56:00 [facility] Moderna COVID-19 Moderna COVID-19 2020-09-05 Completed [facility] - Vaccine Vaccine 10:56:00 [facility] Moderna COVID-19 Moderna COVID-19 2020-09-05 Completed [facility] - Vaccine Vaccine 10:56:00 [facility] Moderna COVID-19 Moderna COVID-19 2020-09-05 Completed [facility] - Vaccine Vaccine 10:56:00 [facility] SARS-COV-2 COVID-19 2020-09-05 Completed [facility]ive [facility]ity of VACCINE - (MODERNA) 00:00:00 [facility] SARS-COV-2 COVID-19 2020-09-05 Completed [facility]ive rsity of VACCINE - (MODERNA) 00:00:00 [facility] SARS-COV-2 COVID-19 2020-09-05 Completed [facility]ive rsity of VACCINE - (MODERNA) 00:00:00 [facility] SARS-COV-2 COVID-19 2020-09-05 Completed [facility]ive [facility]ity of VACCINE - (MODERNA) 00:00:00 [facility] SARS-COV-2 COVID-19 2020-09-05 Completed [facility]ive rsity of VACCINE - (MODERNA) 00:00:00 [facility] SARS-COV-2 COVID-19 2020-09-05 Completed [facility]ive rsity of VACCINE - (MODERNA) 00:00:00 [facility] SARS-COV-2 COVID-19 2020-09-05 Completed [facility]ive rsity of VACCINE - (MODERNA) 00:00:00 [facility] SARS-COV-2 COVID-19 2020-09-05 Completed [facility]ive rsity of VACCINE - (MODERNA) 00:00:00 [facility] SARS-COV-2 COVID-19 2020-09-05 Completed [facility]ive rsity of VACCINE - (MODERNA) 00:00:00 [facility] SARS-COV-2 COVID-19 2020-09-05 Completed [facility]ive rsity of VACCINE - (MODERNA) 00:00:00 [facility] SARS-COV-2 COVID-19 2020-09-05 Completed Unive rsity of VACCINE - (MODERNA) 00:00:00 [facility] SARS-COV-2 COVID-19 2020-09-05 Completed Unive rsity of VACCINE - (MODERNA) 00:00:00 [facility] SARS-COV-2 COVID-19 2020-09-05 Completed [facility]ive rsity of VACCINE - (MODERNA) 00:00:00 [facility] SARS-COV-2 COVID-19 2020-09-05 Completed Unive rsity of VACCINE - (MODERNA) 00:00:00 [facility] SARS-COV-2 COVID-19 2020-09-05 Completed [facility]ive rsity of VACCINE - (MODERNA) 00:00:00 [facility] SARS-COV-2 COVID-19 2020-09-05 Completed [facility]ive rsity of VACCINE - (MODERNA) 00:00:00 [facility] SARS-COV-2 COVID-19 2020-09-05 Completed [facility]ive rsity of VACCINE - (MODERNA) 00:00:00 [facility] SARS-COV-2 COVID-19 2020-09-05 Completed [facility]ive [facility]ity of VACCINE - (MODERNA) 00:00:00 [facility] SARS-COV-2 COVID-19 2020-09-05 Completed [facility]ive [facility]ity of VACCINE - (MODERNA) 00:00:00 [facility] SARS-COV-2 COVID-19 2020-09-05 Completed Unive rsity of VACCINE - (MODERNA) 00:00:00 [facility] SARS-COV-2 COVID-19 2020-09-05 Completed [facility]ive rsity of VACCINE - (MODERNA) 00:00:00 [facility] SARS-COV-2 COVID-19 2020-09-05 Completed [facility]ive rs[facility] of VACCINE - (MODERNA) 00:00:00 [facility] SARS-COV-2 COVID-19 2020-09-05 Completed [facility]ive [facility]ity of VACCINE - (MODERNA) 00:00:00 [facility] SARS-COV-2 COVID-19 2020-09-05 Completed [facility]ive [facility] of VACCINE - (MODERNA) 00:00:00 [facility] SARS-COV-2 COVID-19 2020-09-05 Completed [facility] of VACCINE - (MODERNA) 00:00:00 [facility] SARS-COV-2 COVID-19 2020-09-05 Completed [facility] of VACCINE - (MODERNA) 00:00:00 [facility] Moderna COVID-19 Moderna COVID-19 Unknown Completed [facility] Vaccine Vaccine [facility] Fluzone Fluzone Unknown Completed [facility] Moderna COVID-19 Moderna COVID-19 Unknown Completed [facility] Vaccine Vaccine [facility] Moderna COVID-19 Moderna COVID-19 Unknown Completed [facility] - Vaccine (Low Dose Vaccine (Low Dose [facility] Booster) Booster) [facility] Moderna COVID-19 Moderna COVID-19 Unknown Completed [facility] Vaccine (Low Dose Vaccine (Low Dose [facility] Booster) Booster) [facility] Moderna COVID-19 Moderna COVID-19 Unknown Completed [facility] Vaccine Vaccine [facility] Moderna COVID-19 Moderna COVID-19 Unknown Completed [facility] Vaccine Vaccine [facility] Fluzone Fluzone Unknown Completed [facility] Modern[facility] COVID-19 Unknown Completed [facility] Vaccine (Low Dose Vaccine (Low Dose [facility] Booster) Booster) [facility] COVID-19 Moderna COVID-19 Unknown Completed [facility] Vaccine Vaccine [facility] Moderna COVID-19 Moderna COVID-19 Unknown Completed [facility] Vaccine Vaccine [facility] Fluzone Fluzone Unknown Completed [facility] SARS-COV-2 COVID-19 Unknown Completed [facility]ACCINE - [facility] SARS-COV-2 COVID-19 Unknown Completed [facility] of VACCINE - ([facility]) [facility] SARS[facility]COV-2 COVID-19 Unknown Completed [facility] of VACCINE - ([facility] [facility] Influenza Virus Unknown Completed [facility] of Vaccine Quad .5 mL [facility] 6+ MO Branch (FLUZONE/FLULAVAL/F LUARIX) Influenza Virus Unknown Completed [facility] y of Vaccine Recomb Quad [facility] IM, Preserv and ABX Branc h Free 18-64 YRS Pneumococcal 20 Unknown Completed [facility] y of Conjugate, PCV20 [facility] dical (Prevnar 20) Branch Influenza Virus Unknown Completed [facility] y of Vaccine (3+ yrs) [facility] dical Branch SARS-COV-2 COVID-19 Unknown Completed Unive rsity of VACCINE - (MODERNA) [facility] SARS-COV-2 COVID-19 Unknown Completed Unive rsity of VACCINE - (MODERNA) [facility] SARS-COV-2 COVID-19 Unknown Completed [facility]ive rsity of VACCINE - (MODERNA) [facility] Influenza Virus Unknown Completed [facility] of Vaccine Quad .5 mL [facility] IM 6+ MO Branch (FLUZONE/FLULAVAL/F LUARIX) Influenza Virus Unknown Completed [facility] of Vaccine Recomb Quad [facility] IM, Preserv and ABX Branc h Free 18-64 YRS Pneumococcal 20 Unknown Completed [facility] of Conjugate, PCV20 [facility] dical (Prevnar 20) Branch Influenza Virus Unknown Completed [facility] y of Vaccine (3+ yrs) [facility] dical Branch SARS-COV-2 COVID-19 Unknown Completed Unive rsity of VACCINE - (MODERNA) [facility] SARS-COV-2 COVID-19 Unknown Completed Unive rsity of VACCINE - (MODERNA) [facility] SARS-COV-2 COVID-19 Unknown Completed Unive rsity of VACCINE - (MODERNA) [facility] Influenza Virus Unknown Completed [facility] y of Vaccine Quad .5 mL [facility] IM 6+ MO Branch (FLUZONE/FLULAVAL/F LUARIX) Influenza Virus Unknown Completed [facility] y of Vaccine Recomb Quad [facility] IM, Preserv and ABX Branc h Free 18-64 YRS Pneumococcal 20 Unknown Completed [facility] y of Conjugate, PCV20 [facility] dical (Prevnar 20) Branch Influenza Virus Unknown Completed [facility] y of Vaccine (3+ yrs) [facility] dical Branch Influenza Virus Unknown Completed [facility] y of Vaccine Quad .5 mL [facility] IM 6+ MO Branch (FLUZONE/FLULAVAL/F LUARIX) RSV, Monoclonal Unknown Completed [facility] y of Antibody, [facility] (nirsevimab-alip), Branch 0.5 mL, - 12 Mo. SARS-COV-2 COVID-19 Unknown Completed Unive rsity of VACCINE - (MODERNA) [facility] SARS-COV-2 COVID-19 Unknown Completed Unive rsity of VACCINE - (MODERNA) [facility] SARS-COV-2 COVID-19 Unknown Completed Unive rsity of VACCINE - (MODERNA) [facility] Influenza Virus Unknown Completed [facility] y of Vaccine Quad .5 mL [facility] IM 6+ MO Branch (FLUZONE/FLULAVAL/F LUARIX) Influenza Virus Unknown Completed [facility] of Vaccine Recomb Quad [facility] IM, Preserv and ABX Branc h Free 18-64 YRS Pneumococcal 20 Unknown Completed [facility] y of Conjugate, PCV20 [facility] dical (Prevnar 20) Branch Influenza Virus Unknown Completed [facility] y of Vaccine (3+ yrs) [facility] dical Branch Influenza Virus Unknown Completed [facility] y of Vaccine Quad .5 mL [facility] IM 6+ MO Branch (FLUZONE/FLULAVAL/F LUARIX) RSV, Monoclonal Unknown Completed [facility] y of Antibody, [facility] (nirsevimab-alip), Branch 0.5 mL, - 12 Mo. SARS-COV-2 COVID-19 Unknown Completed Unive rsity of VACCINE - (MODERNA) [facility] SARS-COV-2 COVID-19 Unknown Completed Unive rsity of VACCINE - (MODERNA) [facility] SARS-COV-2 COVID-19 Unknown Completed Unive rsity of VACCINE - (MODERNA) [facility] Influenza Virus Unknown Completed [facility] y of Vaccine Quad .5 mL [facility] 6+ MO Branch (FLUZONE/FLULAVAL/F LUARIX) Influenza Virus Unknown Completed [facility] y of Vaccine Recomb Quad [facility] IM, Preserv and ABX Branc h Free 18-64 YRS Pneumococcal 20 Unknown Completed [facility] y of Conjugate, PCV20 [facility] dical (Prevnar 20) Branch Influenza Virus Unknown Completed [facility] y of Vaccine (3+ yrs) [facility] dical Branch Influenza Virus Unknown Completed [facility] of Vaccine Quad .5 mL [facility] IM 6+ MO Branch (FLUZONE/FLULAVAL/F LUARIX) RSV, Monoclonal Unknown Completed [facility] of Antibody, [facility] (nirsevimab-alip), Branch 0.5 mL, - 12 Mo. SARS-COV-2 COVID-19 Unknown Completed Unive rsity of VACCINE - (MODERNA) [facility] SARS-COV-2 COVID-19 Unknown Completed Unive rsity of VACCINE - (MODERNA) [facility] SARS-COV-2 COVID-19 Unknown Completed Unive rsity of VACCINE - (MODERNA) [facility] Influenza Virus Unknown Completed [facility] of Vaccine Quad .5 mL [facility] IM 6+ MO Branch (FLUZONE/FLULAVAL/F LUARIX) Influenza Virus Unknown Completed [facility] Vaccine Recomb [facility], Preserv and ABX Branc h Free 18-64 YRS Pneumococcal 20 Unknown Completed [facility] of Conjugate, PCV20 [facility] dical (Prevnar 20) Branch Influenza Virus Unknown Completed [facility] y of Vaccine (3+ yrs) [facility] dical Branch Influenza Virus Unknown Completed [facility] of Vaccine Quad .5 mL [facility] IM 6+ MO Branch (FLUZONE/FLULAVAL/F LUARIX) RSV, Monoclonal Unknown Completed [facility] of Antibody, [facility] (nirsevimab-alip), Branch 0.5 mL, - 12 Mo. SARS-COV-2 COVID-19 Unknown Completed Unive rsity of VACCINE - (MODERNA) [facility] SARS-COV-2 COVID-19 Unknown Completed Unive rsity of VACCINE - (MODERNA) [facility] SARS-COV-2 COVID-19 Unknown Completed Unive rsity of VACCINE - (MODERNA) [facility] Influenza Virus Unknown Completed [facility] y of Vaccine Quad .5 mL [facility] 6+ MO Branch (FLUZONE/FLULAVAL/F LUARIX) Influenza Virus Unknown Completed [facility] of Vaccine Recomb Quad [facility] IM, Preserv and ABX Branc h Free 18-64 YRS Pneumococcal 20 Unknown Completed [facility] y of Conjugate, PCV20 [facility] dical (Prevnar 20) Branch Influenza Virus Unknown Completed [facility] of Vaccine (3+ yrs) [facility] dical Branch Influenza Virus Unknown Completed [facility] of Vaccine Quad .5 mL [facility] IM 6+ MO Branch (FLUZONE/FLULAVAL/F LUARIX) RSV, Monoclonal Unknown Completed [facility] of Antibody, [facility] (nirsevimab-alip), Branch 0.5 mL, - 12 Mo. SARS-COV-2 COVID-19 Unknown Completed Unive rsity of VACCINE - (MODERNA) [facility] SARS-COV-2 COVID-19 Unknown Completed Unive rsity of VACCINE - (MODERNA) [facility] SARS-COV-2 COVID-19 Unknown Completed Unive rsity of VACCINE - (MODERNA) [facility] Influenza Virus Unknown Completed [facility] of Vaccine Quad .5 mL [facility] IM 6+ MO Branch (FLUZONE/FLULAVAL/F LUARIX) Influenza Virus Unknown Completed [facility] of Vaccine Recomb Quad [facility] IM, Preserv and ABX Branc h Free 18-64 YRS Pneumococcal 20 Unknown Completed [facility] of Conjugate, PCV20 [facility] dical (Prevnar 20) Branch Influenza Virus Unknown Completed [facility] y of Vaccine (3+ yrs) [facility] dical Branch Influenza Virus Unknown Completed [facility] of Vaccine Quad .5 mL [facility] IM 6+ MO Branch (FLUZONE/FLULAVAL/F LUARIX) RSV, Monoclonal Unknown Completed [facility] of Antibody, [facility] (nirsevimab-alip), Branch 0.5 mL, - 12 Mo. SARS-COV-2 COVID-19 Unknown Completed Unive rsity of VACCINE - (MODERNA) [facility] SARS-COV-2 COVID-19 Unknown Completed Unive rsity of VACCINE - (MODERNA) [facility] SARS-COV-2 COVID-19 Unknown Completed Unive [facility]ity of VACCINE - (MODERNA) [facility] Influenza Virus Unknown Completed [facility] of Vaccine Quad .5 mL [facility] IM 6+ MO Branch (FLUZONE/FLULAVAL/F LUARIX) Influenza Virus Unknown Completed [facility] of Vaccine Recomb Quad [facility] IM, Preserv and ABX Branc h Free 18-64 YRS Pneumococcal 20 Unknown Completed [facility] of Conjugate, PCV20 [facility] dical (Prevnar 20) Branch Influenza Virus Unknown Completed [facility]it y of Vaccine (3+ yrs) [facility] dical Branch Influenza Virus Unknown Completed [facility] of Vaccine Quad .5 mL [facility] IM 6+ MO Branch (FLUZONE/FLULAVAL/F LUARIX) RSV, Monoclonal Unknown Completed Universit y of Antibody, [facility] (nirsevimab-alip), Branch 0.5 mL, - 12 Mo. SARS-COV-2 COVID-19 Unknown Completed Unive rsity of VACCINE - (MODERNA) [facility] SARS-COV-2 COVID-19 Unknown Completed Unive rsity of VACCINE - (MODERNA) [facility] SARS-COV-2 COVID-19 Unknown Completed Unive rsity of VACCINE - (MODERNA) [facility] Branch Influenza Virus Unknown Completed Universit y of Vaccine Quad .5 mL [facility] IM 6+ MO Branch (FLUZONE/FLULAVAL/F LUARIX) Influenza Virus Unknown Completed Universit y of Vaccine Recomb Quad [facility] IM, Preserv and ABX Branc h Free 18-64 YRS Pneumococcal 20 Unknown Completed Universit y of Conjugate, PCV20 [facility] dical (Prevnar 20) Branch Influenza Virus Unknown Completed Universit y of Vaccine (3+ yrs) [facility] dical Branch Influenza Virus Unknown Completed Universit y of Vaccine Quad .5 mL [facility] IM 6+ MO Branch (FLUZONE/FLULAVAL/F LUARIX) RSV, Monoclonal Unknown Completed Universit y of Antibody, [facility] (nirsevimab-alip), Branch 0.5 mL, - 12 Mo. SARS-COV-2 COVID-19 Unknown Completed Unive rsity of VACCINE - (MODERNA) [facility] Branch SARS-COV-2 COVID-19 Unknown Completed Unive rsity of VACCINE - (MODERNA) [facility] SARS-COV-2 COVID-19 Unknown Completed Unive rsity of VACCINE - (MODERNA) [facility] Influenza Virus Unknown Completed Universit y of Vaccine Quad .5 mL [facility] IM 6+ MO Branch (FLUZONE/FLULAVAL/F LUARIX) Influenza Virus Unknown Completed Universit y of Vaccine Recomb Quad [facility], Preserv and ABX Branc h Free 18-64 YRS Pneumococcal 20 Unknown Completed Universit y of Conjugate, PCV20 [facility] dical (Prevnar 20) Branch Influenza Virus Unknown Completed Universit y of Vaccine (3+ yrs) [facility] dical Branch Influenza Virus Unknown Completed Universit y of Vaccine Quad .5 mL [facility] IM 6+ MO Branch (FLUZONE/FLULAVAL/F LUARIX) RSV, Monoclonal Unknown Completed Universit y of Antibody, [facility] (nirsevimab-ali), Branch 0.5 mL, - 12 Mo. SARS-COV-2 COVID-19 Unknown Completed Unive rsity of VACCINE - (MODERNA) [facility] Branch SARS-COV-2 COVID-19 Unknown Completed Unive rsity of VACCINE - (MODERNA) [facility] SARS-COV-2 COVID-19 Unknown Completed Unive rsity of VACCINE - (MODERNA) [facility] Branch Influenza Virus Unknown Completed Universit y of Vaccine Quad .5 mL [facility] IM 6+ MO Branch (FLUZONE/FLULAVAL/F LUARIX) Influenza Virus Unknown Completed Universit y of Vaccine Recomb Quad [facility] IM, Preserv and ABX Branc h Free 18-64 YRS Pneumococcal 20 Unknown Completed Universit y of Conjugate, PCV20 [facility] dical (Prevnar 20) Branch Influenza Virus Unknown Completed Universit y of Vaccine (3+ yrs) [facility] dical Branch Influenza Virus Unknown Completed Universit y of Vaccine Quad .5 mL [facility] IM 6+ MO Branch (FLUZONE/FLULAVAL/F LUARIX) RSV, Monoclonal Unknown Completed Universit y of Antibody, [facility] (nirsevimab-alip), Branch 0.5 mL, - 12 Mo. SARS-COV-2 COVID-19 Unknown Completed Unive rsity of VACCINE - (MODERNA) [facility] SARS-COV-2 COVID-19 Unknown Completed Unive rsity of VACCINE - (MODERNA) [facility] SARS-COV-2 COVID-19 Unknown Completed Unive rsity of VACCINE - (MODERNA) [facility] Influenza Virus Unknown Completed Universit y of Vaccine Quad .5 mL [facility] IM 6+ MO Branch (FLUZONE/FLULAVAL/F LUARIX) Influenza Virus Unknown Completed Universit y of Vaccine Recomb Quad [facility], Preserv and ABX Branc h Free 18-64 YRS Pneumococcal 20 Unknown Completed Universit y of Conjugate, PCV20 [facility] dicga (Prevnar 20) Branch Influenza Virus Unknown Completed Universit y of Vaccine (3+ yrs) [facility] dical Branch Influenza Virus Unknown Completed Universit y of Vaccine Quad .5 mL [facility] IM 6+ MO Branch (FLUZONE/FLULAVAL/F LUARIX) RSV, Monoclonal Unknown Completed Universit y of Antibody, [facility] (nirsevimab-alip), Branch 0.5 mL, - 12 Mo. Vital Signs Vital Name Observation Time Observation Value Comments Source Systolic blood 2023-03-25 16:22:00 95 mm[Hg] Univer sity of pressure [facility] Diastolic blood 2023-03-25 16:22:00 61 mm[Hg] Unive rsity of pressure [facility] Heart rate 2023-03-25 16:22:00 63 /min [facility] Body temperature 2023-03-25 16:22:00 36.28 [facility] 2023-03-25 16:22:00 16 /min [facility] Body height 2023-03-25 16:22:00 154.9 cm [facility] Body weight 2023-03-25 16:22:00 111.585 kg [facility] BMI 2023-03-25 16:22:00 46.48 kg/m2 [facility] Oxygen saturation in 2023-03-25 16:22:00 97 /min University of Arterial blood by [facility] merlyn Pulse oximetry Branch Systolic blood 2023-03-20 20:28:00 96 mm[Hg] Univer sity of pressure [facility] Diastolic blood 2023-03-20 20:28:00 57 mm[Hg] Unive rsity of pressure [facility] Heart rate 2023-03-20 20:28:00 77 /min [facility] Body height 2023-03-20 20:28:00 154.9 cm [facility] Body weight 2023-03-20 20:28:00 112.038 kg [facility] BMI 2023-03-20 20:28:00 46.67 kg/m2 [facility] Oxygen saturation in 2023-03-20 20:28:00 97 /min University of Arterial blood by [facility] merlyn Pulse oximetry Branch Systolic blood 2022-10-03 14:55:00 90 mm[Hg] Univer sity of pressure [facility] Diastolic blood 2022-10-03 14:55:00 63 mm[Hg] Unive rsity of pressure [facility] Heart rate 2022-10-03 14:55:00 63 /min [facility] Body height 2022-10-03 14:55:00 154.9 cm [facility] Body weight 2022-10-03 14:55:00 116.166 kg [facility] BMI 2022-10-03 14:55:00 48.39 kg/m2 [facility] Oxygen saturation in 2022-10-03 14:55:00 96 /min [facility] of Arterial blood by [facility] merlyn Pulse oximetry Branch Systolic blood 2022-10-02 14:43:00 92 mm[Hg] Univer sity of pressure [facility] Diastolic blood 2022-10-02 14:43:00 61 mm[Hg] Unive rsity of pressure [facility] Heart rate 2022-10-02 14:43:00 71 /min [facility] [place] Respiratory rate 2022-10-02 14:39:00 19 /min Univ ersity [facility] [place] Body height 2022-10-02 14:39:00 154.9 cm [facility] Body weight 2022-10-02 14:39:00 115.486 kg [facility] [place] BMI 2022-10-02 14:39:00 48.11 kg/m2 Universi ty of [facility] Oxygen saturation in 2022-10-02 14:39:00 94 /min University of Arterial blood by [facility] Pulse oximetry Branch Systolic blood 2022-09-27 19:22:00 111 mm[Hg] Univer [facility]ity of pressure [facility] [place] Diastolic blood 2022-09-27 19:22:00 72 mm[Hg] Unive rsity of [facility] Heart rate 2022-09-27 19:22:00 70 /min [facility] [place] Respiratory rate 2022-09-27 19:22:00 18 /min Univ ersity of [facility] Body height 2022-09-27 19:22:00 154.9 cm [facility] Body weight 2022-09-27 19:22:00 115.35 kg [facility] BMI 2022-09-27 19:22:00 48.05 kg/m2 [facility] [place] Oxygen saturation in 2022-09-27 19:22:00 99 /min [facility] of Arterial blood by [facility] Pulse oximetry Branch height 2022-08-29 10:40:00 61 [in_i] [facility] weight 2022-08-29 10:40:00 253.6 [lb_av] Common [facility] temperature 2022-08-29 10:40:00 98.2 [degF] [facility] bmi 2022-08-29 10:40:00 47.91 kg/m2 [facility] oximetry 2022-08-29 10:40:00 95 % [facility] respiratory rate 2022-08-29 10:40:00 15 /min Comm on [facility] blood pressure 2022-08-29 10:40:00 113 mm[Hg] [facility] systolic [facility] blood pressure 2022-08-29 10:40:00 64 mm[Hg] [facility] diastolic [facility] Systolic blood 2022-08-19 15:57:00 90 mm[Hg] Univer sity of pressure [facility] Diastolic blood 2022-08-19 15:57:00 63 mm[Hg] Unive rsity of pressure [facility] Heart rate 2022-08-19 15:57:00 67 /min Universi ty of [facility] Body height 2022-08-19 15:57:00 154.9 cm Universi ty of [facility] Body weight 2022-08-19 15:57:00 113.898 kg [facility] [place] BMI 2022-08-19 15:57:00 47.44 kg/m2 Universi ty of [facility] Oxygen saturation in 2022-08-19 15:57:00 96 /min [facility] Arterial blood by [place] [employer] Pulse oximetry Branch Systolic blood 2022-07-08 19:02:00 95 mm[Hg] Univer sity of [facility] Diastolic blood 2022-07-08 19:02:00 54 mm[Hg] Unive rsity of [facility] Heart rate 2022-07-08 19:02:00 62 /min [facility] [place] Body temperature 2022-07-08 19:02:00 36.33 Marya Univ ersity of [facility] Respiratory rate 2022-07-08 19:02:00 18 /min Univ ersity of [facility] Body height 2022-07-08 19:02:00 154.9 cm [facility] [place] Body weight 2022-07-08 19:02:00 115.713 kg [facility] [place] BMI 2022-07-08 19:02:00 48.20 kg/m2 [facility] [place] Oxygen saturation in 2022-07-08 19:02:00 99 /min University of Arterial blood by [employer] Pulse oximetry Branch height 2022-05-30 13:40:00 61 [in_i] Common [facility]irit - [facility] weight 2022-05-30 13:40:00 249.4 [lb_av] Common [facility] temperature 2022-05-30 13:40:00 97.4 [degF] Common S [facility] bmi 2022-05-30 13:40:00 47.12 kg/m2 [facility] oximetry 2022-05-30 13:40:00 96 % Common [facility] respiratory rate 2022-05-30 13:40:00 17 /min Comm on [facility] blood pressure 2022-05-30 13:40:00 119 mm[Hg] Common [facility] - systolic [facility] blood pressure 2022-05-30 13:40:00 68 mm[Hg] Common [facility] diastolic [facility] height 2022-05-30 14:00:00 61 [in_i] [facility] weight 2022-05-30 14:00:00 249.4 [lb_av] [facility] temperature 2022-05-30 14:00:00 97.4 [degF] [facility] bmi 2022-05-30 14:00:00 47.12 kg/m2 [facility] oximetry 2022-05-30 14:00:00 96 % [facility] respiratory rate 2022-05-30 14:00:00 17 /min Comm on [facility] blood pressure 2022-05-30 14:00:00 119 mm[Hg] Common [facility] - systolic [facility] blood pressure 2022-05-30 14:00:00 68 mm[Hg] Common [facility] - diastolic [facility] Systolic blood 2022-04-10 17:14:00 109 mm[Hg] Univer sity of [facility] Diastolic blood 2022-04-10 17:14:00 71 mm[Hg] Unive rsity of pressure [facility] Heart rate 2022-04-10 17:14:00 65 /min Universi ty [facility] Respiratory rate 2022-04-10 17:14:00 19 /min Univ ersity of [facility] Body height 2022-04-10 17:14:00 154.9 cm [facility] [place] Body weight 2022-04-10 17:14:00 115.123 kg [facility] [place] BMI 2022-04-10 17:14:00 47.96 kg/m2 Universi ty [facility] Oxygen saturation in 2022-04-10 17:14:00 97 /min [facility] Arterial blood by [facility] Pulse oximetry Branch Systolic blood 2022-02-25 18:19:00 114 mm[Hg] Univer sity of pressure [facility] Diastolic blood 2022-02-25 18:19:00 74 mm[Hg] Unive rsity of [facility] Heart rate 2022-02-25 18:19:00 79 /min Universi ty of [facility] Body temperature 2022-02-25 18:19:00 36.17 [facility] 2022-02-25 18:19:00 16 /min [facility] Body weight 2022-02-25 18:19:00 114.443 kg Universi ty of [facility] BMI 2022-02-25 18:19:00 47.67 kg/m2 Universi ty of [facility] height 2022-01-24 11:00:00 61 [in_i] [facility] weight 2022-01-24 11:00:00 250 [lb_av] [facility] temperature 2022-01-24 11:00:00 97.3 [degF] [facility] bmi 2022-01-24 11:00:00 47.23 kg/m2 [facility] oximetry 2022-01-24 11:00:00 95 % [facility] respiratory rate 2022-01-24 11:00:00 18 /min Comm on [facility] blood pressure 2022-01-24 11:00:00 100 mm[Hg] Common [facility] systolic [facility] blood pressure 2022-01-24 11:00:00 59 mm[Hg] [facility] height 2021-12-04 10:20:00 Common S pirit - [facility] weight 2021-12-04 10:20:00 260 [lb_av] [facility] temperature 2021-12-04 10:20:00 97.3 [degF] Common S pirit - [facility] bmi 2021-12-04 10:20:00 49.12 kg/m2 Common S pirit - [facility] oximetry 2021-12-04 10:20:00 96 % Common S pirit [facility] respiratory rate 2021-12-04 10:20:00 18 /min Comm on [facility] blood pressure 2021-12-04 10:20:00 110 mm[Hg] Common [facility] - systolic [facility] blood pressure 2021-12-04 10:20:00 65 mm[Hg] [facility] diastolic [facility] height 2021-09-04 09:40:00 62.25 [in_i] Common S pirit [facility] weight 2021-09-04 09:40:00 261.4 [lb_av] Common [facility] temperature 2021-09-04 09:40:00 98.1 [degF] Common S pirit [facility] bmi 2021-09-04 09:40:00 47.42 kg/m2 Common [facility] oximetry 2021-09-04 09:40:00 100 % [facility] respiratory rate 2021-09-04 09:40:00 16 /min [facility] on [facility] blood pressure 2021-09-04 09:40:00 110 mm[Hg] [facility] blood pressure 2021-09-04 09:40:00 84 mm[Hg] [facility] diastolic [facility] height 2021-06-05 10:00:00 62.25 [in_i] Common [facility] weight 2021-06-05 10:00:00 259 [lb_av] Common [facility] temperature 2021-06-05 10:00:00 98.1 [degF] Common S [facility]irit [facility] bmi 2021-06-05 10:00:00 46.99 kg/m2 [facility] oximetry 2021-06-05 10:00:00 96 % [facility] respiratory rate 2021-06-05 10:00:00 18 /min Comm on [facility] - [facility] blood pressure 2021-06-05 10:00:00 96 mm[Hg] [facility] systolic [facility] blood pressure 2021-06-05 10:00:00 50 mm[Hg] [facility] diastolic [facility] height 2021-06-05 10:20:00 62.25 [in_i] [facility] weight 2021-06-05 10:20:00 259 [lb_av] Common [facility] temperature 2021-06-05 10:20:00 98.1 [degF] Common [facility] bmi 2021-06-05 10:20:00 46.99 kg/m2 [facility] oximetry 2021-06-05 10:20:00 96 % [facility] blood pressure 2021-06-05 10:20:00 96 mm[Hg] [facility] - systolic [facility] blood pressure 2021-06-05 10:20:00 50 mm[Hg] [facility] - diastolic [facility] height 2021-05-14 10:00:00 62.25 [in_i] [facility] weight 2021-05-14 10:00:00 269 [lb_av] [facility] bmi 2021-05-14 10:00:00 48.8 kg/m2 Common [facility] height 2021-03-26 10:00:00 62.25 [in_i] [facility] weight 2021-03-26 10:00:00 261 [lb_av] [facility] temperature 2021-03-26 10:00:00 97.1 [degF] [facility] bmi 2021-03-26 10:00:00 47.35 kg/m2 [facility] oximetry 2021-03-26 10:00:00 96 % [facility] respiratory rate 2021-03-26 10:00:00 16 /min Comm on [facility] blood pressure 2021-03-26 10:00:00 104 mm[Hg] Common [facility] - systolic [facility] blood pressure 2021-03-26 10:00:00 54 mm[Hg] Common [facility] - diastolic [facility] height 2021-02-26 08:40:00 62.25 [in_i] [facility] weight 2021-02-26 08:40:00 265 [lb_av] [facility] temperature 2021-02-26 08:40:00 97.2 [degF] [facility] bmi 2021-02-26 08:40:00 48.08 kg/m2 [facility] oximetry 2021-02-26 08:40:00 97 % [facility] respiratory rate 2021-02-26 08:40:00 16 /min Comm on [facility] blood pressure 2021-02-26 08:40:00 111 mm[Hg] Common [facility] - systolic [facility] blood pressure 2021-02-26 08:40:00 60 mm[Hg] [facility] BP Diastolic 2020-09-14 00:00:00 68 mm[Hg] [facility] Height 2020-09-14 00:00:00 61 [in_i] [facility] BMI (Body Mass 2020-09-14 00:00:00 48 kg/m2 [facility] [employer] [facility] BP Systolic 2020-09-14 00:00:00 102 mm[Hg] [facility] Body Weight 2020-09-14 00:00:00 254.2 [lb_av] [facility] BMI (Body Mass 2020-05-31 00:00:00 49.3 kg/m2 [facility] Medical Index) Group BP Systolic 2020-05-31 00:00:00 116 mm[Hg] [facility] Body Weight 2020-05-31 00:00:00 260.7 [lb_av] [facility] BP Diastolic 2020-05-31 00:00:00 79 mm[Hg] [facility] Height 2020-05-31 00:00:00 61 [in_i] [facility] BP Diastolic 2020-03-07 00:00:00 66 mm[Hg] [facility] Height 2020-03-07 00:00:00 61 [in_i] [facility] BMI (Body Mass 2020-03-07 00:00:00 49.4 kg/m2 [facility] Medical Index) Group BP Systolic 2020-03-07 00:00:00 115 mm[Hg] [facility] Body Weight 2020-03-07 00:00:00 261.5 [lb_av] [facility] Systolic (mm Hg) 2021-04-23 16:18:00 Andres [facility] Diastolic (mm Hg) 2021-04-23 16:18:00 Mem [facility] Heart Rate 2021-04-23 16:18:00 [facility] Respitory Rate 2021-04-23 16:18:00 Memori al [place] Height 2021-04-23 16:18:00 154.94 cm [facility] [place] Weight 2021-04-23 16:18:00 [facility] [place] BMI Calculated 2021-04-23 16:18:00 Memori al [facility] Systolic (mm Hg) 2021-03-22 18:19:00 Andres rial [place] Diastolic (mm Hg) 2021-03-22 18:19:00 Mem orial [facility] Heart Rate 2021-03-22 18:19:00 [facility] [place] Respitory Rate 2021-03-22 18:19:00 Memori al [facility] Height 2021-03-22 18:19:00 154.94 cm [facility] Weight 2021-03-22 18:19:00 [facility] BMI Calculated 2021-03-22 18:19:00 Memori al [place] Systolic (mm Hg) 2021-02-21 18:59:00 Andres rial [place] Diastolic (mm Hg) 2021-02-21 18:59:00 Mem orial [place] Heart Rate 2021-02-21 18:59:00 [facility] [place] Respitory Rate 2021-02-21 18:59:00 Memori al [place] Height 2021-02-21 18:59:00 154.94 cm [facility] [place] Weight 2021-02-21 18:59:00 [facility] BMI Calculated 2021-02-21 18:59:00 [facility] Procedures Procedure Date / Time Performing Clinician Source Performed CT TIBIA FIBULA RIGHT W 2023-03-21 19:36:23 Yusuf Howe [facility] CONTRAST Medical Branch CONSENT/REFUSAL FOR 2023-03-21 18:41:06 Doctor Eliza, [facility] DIAGNOSIS AND TREATMENT [facility] REFERRAL- REQUEST/RESPONSE 2023-03-11 05:01:00 Doctor Eliza [facility] PATIENT AGREEMENTS AND 2022-10-10 05:01:00 Doctor Eliza, [facility] CONTRACTS [facility] REFERRAL- REQUEST/RESPONSE 2022-09-24 05:01:00 Doctor Kay [facility] PATIENT FINANCIAL 2022-08-19 15:42:43 Doctor Eliza, [facility] POLICY [facility] SLEEP STUDY DATA REPORT 2022-07-23 06:01:00 Doctor Kay [facility] ASSIGNMENT OF BENEFITS 2022-07-08 18:55:01 Doctor Eliza, [facility] EXTERNAL FIT DNA 2022-06-21 10:34:00 Doctor Eliza, [facility] PULMONARY FUNCTION REPORT 2022-05-24 06:01:00 Doctor Eliza [facility] EXTERNAL PROVIDER - ADC 2022-03-05 05:01:00 [facility] ASSIGNMENT OF BENEFITS 2022-01-10 15:14:06 [facility] MAGNESIUM 2021-11-28 15:33:00 Araceli, [facility] [place] BASIC METABOLIC PANEL (NA, 2021-11-28 15:33:00 Miley [place], [facility] K, CL, CO2, GLUCOSE, BUN, [facility] CREATININE, CA) N-TERMINAL PRO-BNP 2021-11-28 15:33:00 Araceli, [facility] [place] Automatic Defibrillator [facility] Cholecystectomy [facility] Defibrillation using [facility] automated external cardiac defibrillator Encounters Start End Encounter Admission Attending Care Care Encounter Source Date/Time Date/Time Type Type Clinicians Facility Department ID 2023-03-17 Outpatient [place], STLMLC STLC [id number] Common 10:08:00 Aissatou [id number] [facility] 2023-03-11 Inpatient EL MEENA, [facility] [id number] [facility] 07:00:00 [id number] [facility] 2023-02-28 Inpatient Elective Meena, [facility] [id number] [facility] 07:00:00 Jacqui 2023-01-21 Outpatient [place], STLMLC STLMLC [id number] Common 07:22:00 Aissatou [id number] [facility] 2023-01-15 Outpatient [place], STLMLC STLMLC [id number] Common 09:22:00 Aissatou [id number] [facility] 2022-12-05 Outpatient [place], STLMLC STLMLC [id number] Common 13:29:00 Aissatou [id number] [facility] 2022-10-07 Outpatient [place], STLMLC STLMLC [id number] Common 08:14:00 Aissatou [id number] [facility] 2022-09-18 Outpatient [place], STLMLC STLMLC [id number] Common 11:42:00 Aissatou [id number] [facility] 2022-09-16 Outpatient [place], STLMLC STLMLC [id number] Common 15:44:00 Aissatou [id number] [facility] 2022-06-18 Outpatient [place], STLMLC STLMLC [id number] Common 12:01:00 Aissatou 00475 [facility] 2022-05-28 Outpatient [place], STLMLC STLMLC [id number] Common 08:32:00 Aissatou [facility] 2021-11-30 Outpatient [place], STLMLC STLMLC [id number] Common 07:54:00 Aissatou [facility] 2021-09-05 Outpatient [place], STLMLC STLMLC [id number] Common 10:56:01 Aissatou [facility] 2021-06-13 Outpatient [place], STLMLC STLMLC [id number] Common 14:38:32 Aissatou [facility] 2021-06-13 Outpatient [place], STLMLC STLMLC [id number] Common 14:35:38 Aissatou [facility] 2021-06-13 Outpatient [place], STLMLC STLMLC [id number] Common 14:01:32 Aissatou 98649 [facility] 2021-06-13 Outpatient [place], STLMLC STLMLC [id number] Common 13:44:49 Aissatou 74336 [facility] 2021-06-13 Outpatient [place], STLMLC STLMLC [id number] Common 13:27:14 Aissatou 14085 [facility] 2021-06-13 Outpatient [place], STLMLC STLMLC [id number] Common 12:57:09 Aissatou 54228 [facility] 2021-06-13 Outpatient [place], STLMLC STLMLC [id number] Common 12:25:50 Aissatou 53857 [facility] 2021-06-13 Outpatient [place], STLMLC STLC [id number] Common 11:42:20 Aleah 60748 [facility] 2021-06-13 Outpatient [place], STLMLC STLMLC [id number] Common 11:39:36 Aleah 54854 [facility] 2021-06-13 Outpatient [place], STLMLC STLMLC [id number] Common 11:24:42 Aleah 00309 [facility] 2021-06-13 Outpatient [place], STLMLC STLC [id number] Common 11:08:27 Aleah 04849 [facility] 2023-04-03 2023-04-03 Outpatient R RADIOLOGY [facility] [id number] Univers 00:00:00 00:00[facility]00 [facility]-26 2023-03-26 Outpatient CAMINO [facility] [id number] [place] 10:45:00 10:45:00 [employer] 2023-03-25 2023-03-25 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 Draw, Clc-Bls Lab [facility] 1.2.8 40.114 [id number] Univers 11:30:00 11:45:00 Visit Didatuan 350.1.13.10 ity of CLEAR 4.2.7.2.686 Saida HERNANDEZ [id number] [address] OFFICE BUILDING 2023-03-25 2023-03-25 Outpatient R TAMIKO [facility] [id number] Univers 10:40:00 10:52:34 [facility] 2023-03-25 2023-03-25 Office Giovany Dill [facility] 1.2.840.114 1 [id number] Univers 10:40:00 10:52:34 Visit [employer] 350.1.13.10 ity of [place] 4.2.7.2.686 Saida HERNANDEZ [id number] [address] OFFICE BUILDING 2023-03-24 2023-03-24 Telephone Shyam [facility] HERNANDEZ 1.2.840.114 10 [id number] Univers 00:00:00 00:00:00 Yusuf [place] 350.1.13.10 it y of [place] [id number] [facility] [address] 2023-03-21 2023-03-21 Outpatient [facility] [id number] Univers 13:41:41 23:59:00 YUSUF abely [facility] 2023-03-21 2023-03-21 Hospital [facility] 1.2.840.114 [id number] Univers 13:41:41 23:59:00 Encounter Yusuf MAX 350.1.13.10 ity of [place] [id number] [facility] [address] 2023-03-21 2023-03-21 Orders Doctor ALVERTO 1.2.840.114 [id number] Univers 00:00:00 00:00:00 Only Unassigned, BROOK 350.1.13.10 ity of [place] [facility] 4.2.7.2.686 Arnulfo as [id number] [facility] [address] 2023-03-20 2023-03-20 Outpatient R [facility] [id number] Univers 15:45:00 16:29:48 YUSUF [facility] 2023-03-20 2023-03-20 Office [facility] 1.2.910.900 [id number] Univers 15:45:00 16:29:48 Visit Yusuf [place] 350.1.13.10 it y of [place] [id number] [facility] [address] 2023-03-20 2023-03-20 Telephone Rosangela SOLIS 1.2.840.114 [id number] Univers 00:00:00 00:00:00 , Marychuy ORTIZ 350.1.13.10 ity of [place] [id number] [facility] [address] 2023-03-18 2023-03-18 Outpatient GC_GCBZW_Ka PRIV PRIV [id number] [facility] 00:00:00 00:00:00 diyala_S [id number] Medic al 2023-03-17 2023-03-17 Outpatient GC_GCBZW_Ka PRIV PRIV [id number] [facility] 00:00:00 00:00:00 diyala_S [id number] Medic al 2023-03-13 2023-03-13 Refill Italison- ALVARADO 1.2.840.114 10 [id number] Univers 00:00:00 00:00:00 [place], PEDIATRIC 350.1.13.10 ity of [place] [id number] [place] [address] Branch [facility] 2023-03-11 2023-03-11 Orders Doctor ALVERTO 1.2.840.114 [id number] Univers 00:00:00 00:00:00 Only Unassigned, BROOK 350.1.13.10 ity of [place] [facility] 4.2.7.2.686 Arnulfo as [id number] [place] [address] Branch 2023-01-06 2023-01-06 Outpatient R [facility] [id number] Univers 10:00:00 10:00:00 ity [facility] 2022-12-23 2022-12-23 Outpatient [facility] [id number] Univers 13:40:00 13:40:00 [facility] 2022-12-09 2022-12-09 Outpatient R [facility] [id number] Univers 13:40:00 13:40:00 [facility] 2022-11-12 2022-11-12 Outpatient R [facility] [id number] Univers 09:30:00 09:30:00 SOPHIE ity [facility] 2022-11-12 2022-11-12 Refill Rodrigo- ALVARADO 1.2.840.114 10 [id number] Univers 00:00:00 00:00:00 [place], PEDIATRIC 350.1.13.10 ity of [place] [id number] [place] 3205[address] Branch [facility] 2022-10-10 2022-10-10 Office Papa [facility] 1.2.840.114 [id number] Univers 11:15:00 11:15:00 Visit Mireya SPECIALTY 350.1.13.10 ity of [facility] 4.2.7.2.[place] C[place] AT [id number] Ny stephanie YULISSA 253 [facility] 2022-10-10 2022-10-10 Outpatient R PAPA [facility] [id number] Univers 11:15:00 11:13:57 MIREYA ity [facility] 2022-10-10 2022-10-10 Orders Doctor ALVERTO 1.2.840.114 [id number] Univers 00:00:00 00:00:00 Only Unassigned, BROOK 350.1.13.10 [facility] 4.2.7.2.686 Arnulfo as [phone] [address] 2022-10-03 2022-10-03 Office Rian [facility] 1.2.840.114 [id number] Univers 09:40:00 10:16:13 Visit Kadi SANTANA 350.1.13.10 ity of [place] [id number] Ny stephanie DOVER 059 [facility] 2022-10-03 2022-10-03 Outpatient R ALYSSA DODD [facility] [id number] Univers 09:40:00 10:16:13 ALYSSA DODD ity [facility] 2022-10-02 2022-10-02 Office James [facility] 1.2.697.248 [id number] Univers 11:30:00 12:00:00 Visit Sigifredo SANTANA 350.1.13.10 ity of [facility] 4.2.7.2.[place] [id number] Ny stephanie DOVER 085 [facility] 2022-10-02 2022-10-02 Outpatient R SIGIFREDO RAMIREZ [facility] [id number] Univers 11:30:00 11:30:00 SIGIRFEDO RAMIREZ ity [facility] 2022-10-01 2022-10-01 Telephone [employer]- UNIVERSIT 1.2.840.11 4 [id number] Univers 00:00:00 00:00:00 [place], Derek HEALTH 350.1.13.10 ity of [facility] CLINICS 4.2.7.2.[place] [id number] [facility] [address] 2022-09-30 2022-09-30 Telephone Adames IRMA 1.2.840.114 [id number] Univers 00:00:00 00:00:00 , Marychuy Radha ORTIZ 350.1.13.10 ity of [place].2.7.2.686 [place] [id number] [facility] [address] 2022-09-30 2022-09-30 Telephone [employer]- UNIVERSIT 1.2.840.11 4 [id number] Univers 00:00:00 00:00:00 [place], Derek HEALTH 350.1.13.10 ity of [facility] CLINICS 4.2.7.2.[place] [phone] [address] 2022-09-30 2022-09-30 Telephone [employer] Playlist UN[facility] 1.2.840.11 4 [id number] Univers 00:00:00 00:00:00 [place], Derek HEALTH 350.1.13.10 ity of [place] CLINICS 4.2.7.2.[place] [id number] [address] 2022-09-27 2022-09-27 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 Lab, Chavo - Gabriele [facility] 1.2.840.1 14 [id number] Univers 15:30:00 15:45:00 Visit Andrews Chavez [facility] 350.1.13. 10 ity of [place] 4.2.7.2.686 Arnulfo as BENJAMIN?BLEA [phone] [address] MEDICAL OFFICE BUILDING 2022-09-27 2022-09-27 Outpatient R ANDREWS CHAVEZ [facility] [id number] Univers 14:40:00 15:20:20 ANDREWS CHAVEZ ity of [facility] 2022-09-27 2022-09-27 Office Pan [facility] 1.2.840.114 [id number] Univers 14:40:00 15:20:20 Visit [facility] 350.1.13.10 ity of [place] 4.2.7.2.686 Arnulfo as BENJAMIN?BLEA [phone] [address] MEDICAL OFFICE BUILDING 2022-09-24 2022-09-24 Orders Doctor ALVERTO 1.2.840.114 [id number] Univers 00:00:00 00:00:00 Only Unassigned, BROOK 350.1.13.10 ity of [place] [facility] 4.2.7.2.686 Arnulfo as [id number] [address] 2022-09-23 2022-09-23 Telephone Pan [facility] 1.2.840.114 [id number] Univers 00:00:00 00:00:00 [facility] 350.1.13.10 ity of [place] 4.2.7.2.686 Arnulfo as BENJAMIN?BLEA [phone] [address] OFFICE BUILDING 2022-09-11 2022-09-11 Telephone [facility] 1.2.840.114 [id number] Univers 00:00:00 00:00:00 [place], HEALTH 350.1.13.10 ity of [place].2.7.2.686 [place] HER[place]NDE[place] [phone] [facility] [address] OFFICE BUILDING 2022-08-30 2022-08-30 Telephone Rosangela SOLIS 1.2.840.114 [id number] Univers 00:00:00 00:00:00 , Marychuy ORTIZ 350.1.13.10 ity of [place] 4.2.7.2.686 [place] [id number] [place] [address] [place] 2022-08-29 2022-08-[address] [facility] [id number] Co mmon 00:00:00 00:00:00 VISIT Elieser COPE PT - CHI LEVEL 4 [facility] 2022-08-28 2022-08-28 Outpatient SOURAV ROBLEDO [facility] [id number] [place] 09:20:00 09:20:00 [id number] [facility] 2022-08-20 2022-08-20 (TEL) [facility] [id number] Co mmon 00:00:00 00:00:00 [facility] 2022-08-19 2022-08-19 [facility] 1.2.202.743 [id number] Univers 11:30:00 11:30:00 Visit Afaq [place] 350.1.13.10 i ty of [place].2.7.2.[place] [id number] Ny dical [address] 2022-08-19 2022-08-19 Outpatient R [facility] [id number] Univers 11:30:00 11:14:01 AFAQ ity of [facility] 2022-08-19 2022-08-19 Orders Doctor ALVERTO 1.2.840.114 [id number] Univers 00:00:00 00:00:00 Only Unassigned, BROOK 350.1.13.10 ity of [place] [facility] 4.2.7.2.686 Arnulfo as [id number] [place] [address] [address] 2022-08-18 2022-08-18 Refill Itsantiago CHILDERS 1.2.840.114 10 [id number] Univers 00:00:00 00:00:00 Whipple, PEDIATRIC 350.1.13.10 ity of [place] [id number] [address] 2022-08-07 2022-08-07 Outpatient R SIGIFREDO RAMIREZ [facility] [id number] Univers 09:30:00 09:30:00 SIGIFREDO RAMIREZ ity of [facility] 2022-08-03 2022-08-03 Refill Itsantiago [place] 1.2.840.114 10 [id number] Univers 00:00:00 00:00:00 Whipple, PEDIATRIC 350.1.13.10 ity of [place] [id number] [address] 2022-07-29 2022-07-29 (TEL) STLC LMLC [id number] Co mmon 00:00:00 00:00:00 [facility] 2022-07-23 2022-07-23 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 1, [facility] Sleep Lab Bed [facility] 1. 2.840.114 [id number] Univers 20:00:00 22:30:00 Visit Sigifredo Ramirez 350.1.13. 10 ity of [place] 4.2.7.2.686 [place] [id number] [place] [address] Branch 2022-07-23 2022-07-23 Outpatient R SIGIFREDO RAMIREZ [facility] [id number] Univers 20:00:00 20:00:00 SIGIFREDO RAMIREZ ity of [facility] 2022-07-23 2022-07-23 Orders Doctor ALVERTO 1.2.840.114 [id number] Univers 00:00:00 00:00:00 Only Unassigned, BROOK 350.1.13.10 ity of [place] [facility] 4.2.7.2.686 Arnulfo as [phone] [place] [address] [address] 2022-07-15 2022-07-15 Telephone Italison- ALVARADO 1.2.840.114 [id number] Univers 00:00:00 00:00:00 [place], PEDIATRIC 350.1.13.10 ity of [place]2.[place] [id number] [facility] PRIMARY [facility] Branch CARE CLINIC 2022-07-09 2022-07-09 Letter Feliberto, [facility] 1.2.840.114 [id number] Univers 00:00:00 00:00:00 (Out) General HEALTH 350.1.13.10 it y of Cardiology CLEAR 4.2.7.2.686 T exely HERNANDEZ [id number] [place] [address] Branch OFFICE BUILDING 2022-07-08 2022-07-08 Office Iturrizaga- ALVARADO 1.2.840.114 97 [id number] Univers 13:00:00 13:30:00 Visit Colton PEDIATRIC 350.1.13.10 ity of [place]2.[place] [id number] [facility] PRIMARY [address] CARE CLINIC 2022-07-08 2022-07-08 Outpatient R [facility] [id number] Univers 13:00:00 13:00:00 [place], [facility] 2022-[facility]-08 2022-07-08 Orders Doctor ALVERTO 1.2.840.114 [id number] Univers 00:00:00 00:00:00 Only Unassigned, BROOK 350.1.13.10 ity of [facility] 4.2.7.2.686 Arnulfo as [id number] [facility] [address] 2022-07-08 2022-07-08 Telephone ItProject Playlist [facility]. 1.2.840.11 4 [id number] Univers 00:00:00 00:00:00 [place], HEALTH 350.1.13.10 ity of [facility] 4.2.7.2.686 [place] [id number] [facility] [address] 2022-06-06 2022-06-06 (TEL) STLMLC STLMLC [id number] Co mmon 00:00:00 00:00:00 Spirit [facility] 2022-06-05 2022-06-05 (TEL) STLMLC STLMLC [id number] Co mmon 00:00:00 00:00:00 Spirit [facility] 2022-05-30 2022-05-30 OFFICE STLMLC STLMLC [id number] Co mmon 00:00:00 00:00:00 VISIT Spirit ESTAB PT - CHI LEVEL 4 [facility] 2022-05-30 2022-05-30 SUB ANNUAL STLMLC STLMLC [id number] Common 00:00:00 00:00:00 MCR Spirit WELLNESS - CHI VISIT [facility] 2022-05-30 2022-05-30 Telephone [place] DATONG [facility]. 1.2.840.11 4 [id number] Univers 00:00:00 00:00:00 Whipple, HEALTH 350.1.13.10 ity of [facility] 4.2.7.2.[place] [phone] [address] 2022-05-30 2022-05-30 Refill Iturrizaga- UNIVERSIT 1.2.840.114 [id number] Univers 00:00:00 00:00:00 Col[place] HEALTH 350.1.13.10 ity of [place] CLINICS 4.2.7.2.[place] [id number] [facility] [address] 2022-05-29 2022-05-29 Telephone [facility] 1.2.840.114 [id number] Univers 00:00:00 00:00:00 [place] PEDIATRIC 350.1.13.10 ity of [place]2.[place] [id number] [facility] PRIMARY [address] CARE CLINIC 2022-05-24 2022-05-24 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 Testing, [facility] Pulmonary Func tion UNIVERSIT 1.2.840.114 [id number] Univers 09:30:00 11:31:11 Visit Miguel Alves [facility] 350.1.13. 10 ity of CLINICS 4.2.7.2.[place] [id number] [facility] [address] 2022-05-24 2022-05-24 Outpatient R LILIANA [facility] [id number] Univers 09:30:00 09:30:00 MIGUEL ity [facility] 2022-05-24 2022-05-24 Orders Doctor DEL TORO 1.2.840.114 [id number] Univers 00:00:00 00:00:00 Only Unassigned, BROOK 350.1.13.10 ity of [place] [facility] 4.2.7.2.686 Arnulfo as [id number] [facility] [address] 2022-04-26 2022-04-26 Outpatient [facility] [id number] Univers 09:30:00 09:30:00 [place] [facility] 2022-04-10 2022-04-10 Office James [facility] 1.2.272.512 [id number] Univers 11:00:00 11:30:00 Visit Sigifredo SANTANA 350.1.13.10 ity of [place] 4[place]2.7.2.686 [place] [id number] [place] [address] [facility] 2022-04-10 2022-04-10 Outpatient R [facility]NA [facility] [id number] Univers 11:00:00 11:00:00 SIGIFREDO RAMIREZ itderek [facility] 2022-04-03 2022-04-03 Outpatient [facility] [id number] Univers 08:17:34 23:59:[address] [facility] 2022-03-21 2022-03-21 Telephone [facility] 1.2.840.11 4 [id number] Univers 00:00:00 00:00:00 Colton [facility] 350.1.13.10 ity [facility] 4.2.7.2.[place] [id number] [facility] [address] 2022-03-19 2022-03-19 Outpatient [facility] [id number] Univers 09:00:00 23:59:[address] [facility] 2022-03-06 2022-03-06 Outpatient R JAMES [facility] [id number] Univers 14:00:00 14:00:00 NENA RAMIREZFLRadha [facility] 2022-03-05 2022-03-05 Orders Doctor DEL TORO 1.2.840.114 [id number] Univers 00:00:00 00:00:00 Only Unassigned, BROOK 350.1.13.10 ity of [facility] 4.2.7.2.686 Arnulfo as [id number] [facility] [address] 2022-03-04 2022-03-04 (TEL) STLC STLC [id number] Co mmon 00:00:00 00:00:00 [facility] 2022-03-04 2022-03-04 (TEL) STLMLC STLMLC [id number] Co mmon 00:00:00 00:00:00 [facility] 2022-02-25 2022-02-25 Outpatient [facility] [id number] Univers 13:30:00 13:53:55 COLTON, ity of [place] [facility] 2022-02-25 2022-02-25 Office Kaela CHILDERS 1.2.840.114 [id number] Univers 13:30:00 13:53:55 Visit Col[place] PEDIATRIC 350.1.13.10 ity of [place] [id number] [address] 2022-02-25 2022-02-25 Telephone Kaela CHILDERS 1.2.840.114 [id number] Univers 00:00:00 00:00:00 [place] PEDIATRIC 350.1.13.10 ity of [place]2.[place] [id number] [address] 2022-02-13 2022-02-13 (TEL) STLMLC STLMLC [id number] Co mmon 00:00:00 00:00:00 [facility] 2022-02-06 2022-02-06 (TEL) STLMLC STLMLC [id number] Co mmon 00:00:00 00:00:00 [facility] 2022-01-24 2022-01-24 OFFICE STLMLC STLMLC [id number] Co mmon 00:00:00 00:00:00 VISIT [facility] LEVEL 4 [facility] 2022-01-23 2022-01-23 (TEL) STLMLC STLMLC [id number] Co mmon 00:00:00 00:00:00 [facility] 2022-01-11 2022-01-11 (TEL) STLMLC STLMLC [id number] Co mmon 00:00:00 00:00:00 [facility] 2022-01-10 2022-01-10 Outpatient R RADIOLOGY [facility] [id number] Univers 10:15:43 23:59:00 ity of [facility] 2022-01-10 2022-01-10 Hospital Radiology [facility] 1.2.840.114 [id number] Univers 10:15:43 23:59:00 Encounter MAX 350.1.13.10 ity of [facility] 4.2.7.2.[place] [id number] [facility] [address] 2022-01-10 2022-01-10 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 Arlette, Adc Lab Main [facility] 1.2.8 40.114 [id number] Univers 11:15:00 11:30:00 Visit Milo Bennett 350.1.13.10 ity of [facility] 4.2.7.2.[place] [facility] [phone] Ny dical [facility] [address] BUILDING 2022-01-10 2022-01-10 Orders Doctor ALVERTO 1.2.840.114 [id number] Univers 00:00:00 00:00:00 Only Unassigned, BROOK 350.1.13.10 ity of [place] [facility] 4.2.7.2.686 Arnulfo as [id number] [facility] [address] 2022-01-01 2022-01-01 Telephone [facility] 1.2.840.114 [id number] Univers 00:00:00 00:00:00 Whipple, HEALTH 350.1.13.10 ity of [place] 4.2.7.2.686 [place] [id number] [facility] [address] OFFICE BUILDING 2021-12-19 2021-12-19 Outpatient R RADIOLOGY [facility] RAD [id number] Univers 10:20:00 10:20:00 ity of [facility] 2021-12-04 2021-12-04 [facility] [id number] Co mmon 00:00:00 00:00:00 VISIT Spirit ESTAB PT - CHI LEVEL 4 [facility] 2021-12-04 2021-12-04 Telephone Iturrizaga- [facility] 1.2.840.11 4 [id number] Univers 00:00:00 00:00:00 Colton, Y HEALTH 350.1.13.10 ity of [place]2.[place].2.[place] [id number] 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 2021-11-27 2021-11-27 Telephone Kaela CHILDERS 1.2.840.114 [id number] Univers 00:00:00 00:00:00 [place], PEDIATRIC 350.1.13.10 [place] [id number] [address] 2021-10-31 2021-10-31 (TEL) [facility] [id number] Co mmon 00:00:00 00:00:00 [facility] 2021-10-19 2021-10-19 Outpatient R PAPA [facility] [id number] Univers 11:00:00 11:00:00 [facility]-10-18 2021-10-18 Telephone Kaela CHILDERS 1.2.840.114 [id number] Univers 00:00:00 00:00:00 [place] PEDIATRIC 350.1.13.10 [place] [id number] [address] 2021-10-18 2021-10-18 Telephone Kaela CHILDERS 1.2.840.114 [id number] Univers 00:00:00 00:00:00 [place], PEDIATRIC 350.1.13.10 [place] [id number] [address] 2021-09-04 2021-09-04 Outpatient R ABEBA [facility] [id number] Univers 14:00:00 17:37:46 FE ity [facility] 2021-09-04 2021-09-04 Office Abeba [facility] 1.2.840.114 [id number] Univers 14:00:00 17:37:46 Visit Fe SPECIALTY 350.1.13.10 [place] [id number] [place] stephanie DUENAS 188 [facility] 2021-09-04 2021-09-04 [facility] [id number] Co mmon 00:00:00 00:00:00 VISIT Elieser COPE PT - CHI LEVEL 4 [facility] 2021-09-04 2021-09-04 Orders Doctor ALVERTO 1.2.840.114 [id number] Univers 00:00:00 00:00:00 Only Unassigned, BROOK 350.1.13.10 ity of [place] [facility] 4.2.7.2.686 [place] as [phone] [place] [address] [address] 2021-09-03 2021-09-03 Telephone Kaela CHILDERS 1.2.840.114 [id number] Univers 00:00:00 00:00:00 [place], PEDIATRIC 350.1.13.10 [place] [id number] [facility] PRIMARY [address] [facility] 2021-08-31 2021-08-31 [facility] 1.2.840.114 [id number] Univers 00:00:00 00:00:00 [place] HEALTH 350.1.13.10 [place] HERNANDEZ [id number] [facility] [address] OFFICE BUILDING 2021-08-29 2021-08-29 Outpatient R SARAI [facility] [id number] Univers 09:00:00 10:28:37 MANDI louie [facility] 2021-08-29 2021-08-29 Nurse Nurse, Alexander CHILDERS 1.2.84 0.114 [id number] Univers 09:00:00 09:20:00 Visit Unknown, Attending PEDIATRIC 350.1.13. 10 [place] [id number] [facility] [address] [facility] 2021-08-29 2021-08-29 Outpatient R UNKNOWN, [facility] [id number] Univers 09:00:00 09:00:00 ATTENDING ity [facility] 2021-08-24 2021-08-24 [facility] [id number] Univers 16:30:00 16:50:59 jacy ISAAC WOOD [facility] 2021-08-24 2021-08-24 Office Kaela CHILDERS 1.2.840.114 [id number] Univers 16:30:00 16:50:59 Visit [place], PEDIATRIC 350.1.13.10 ity of [place] [phone] [facility] [address] [facility] 2021-07-30 2021-07-30 (TEL) [facility] [id number] Co mmon 00:00:00 00:00:00 [facility] 2021-07-24 2021-07-24 Ambulatory nullFlavo MNA [id number] Memoria 16:30:00 16:30:00 Pre-Reg r Neurology 05 l Isael Villaseñor 2021-07-24 2021-07-24 Ambulatory nullFlavo MNA [id number] Memoria 16:30:00 16:30:00 Pre-Reg r Neurology 05 l Isael [place] 2021-07-24 2021-07-24 Outpatient MHIE MHIE [id number] Memoria 10:30:00 10:30:00 05 radha Kasi 2021-07-24 2021-07-24 Outpatient JEANNIE Villa [id number] 10:30:00 10:30:00 Regulo Paulo Jose 2021-07-12 2021-07-12 [facility] [id number] [facility] 00:00:00 00:00:00 Joel SANTANA 350.1.13.10 it[facility] [id number] [phone] Ny dicga NAL 059 [facility] 2021-07-06 2021-07-06 [facility] [id number] Univers 00:00:00 00:00:00 Sendil Suellen SANTANA 350.1.13.10 ity [facility] [id number] [phone] Ny dicga NAL 9 [facility] 2021-07-05 2021-07-05 [facility] [id number] Univers 08:54:58 23:59:00 SENDIL ity [facility] 2021-07-05 2021-07-05 [facility] [id number] Univers 08:54:58 23:59:00 Encounter Joel SANTANA 350.1.13.10 [place] [id number] [facility] 843 [facility] 2021-07-05 2021-07-05 [facility] [id number] Univers 09:00:00 09:00:00 SENDIL ity [facility] 2021-06-25 2021-06-25 [facility] [id number] [id number] Univers 00:00:00 00:00:00 Senddaron SANTANA 350.1.13.10 ity of [facility] [place] [id number] Ny dicga NAL [address] [place] [address] 2021-06-19 2021-06-19 [facility] [id number] Univers 14:00:00 14:49:22 Visit Joel SANTANA 350.1.13.10 ity of [facility] 4.[place] [phone] Ny dical NAL 059 [facility] 2021-06-19 2021-06-19 Outpatient R YUE, [facility] [id number] Univers 14:00:00 14:49:22 SENDIL ity [facility] 2021-06-19 2021-06-19 Outpatient R YUE, [facility] [id number] Univers 14:00:00 14:49:22 SENDIL ity [facility] 2021-06-19 2021-06-19 Orders Doctor ALVERTO 1.2.840.114 [id number] Univers 00:00:00 00:00:00 Only Unassigned, BROOK 350.1.13.10 ity of [place] [facility] 4.2.7.2.686 Arnulfo as [phone] [address] 2021-06-05 2021-06-05 OFFICE STLMLC STLMLC [id number] Co mmon 00:00:00 00:00:00 VISIT Spirit ESTAB PT - CHI LEVEL 4 [facility] 2021-06-05 2021-06-05 SUB ANNUAL STLMLC STLMLC [id number] Common 00:00:00 00:00:00 MCR Spirit WELLNESS - CHI VISIT [facility] 2021-05-15 2021-05-15 Outpatient R [facility] [id number] Univers 17:00:00 17:00:00 ity [facility] 2021-05-14 2021-05-14 (TEL) STLMLC STLMLC [id number] Co mmon 00:00:00 00:00:00 Spirit - [facility] 2021-05-14 2021-05-14 OFFICE STLMLC STLMLC [id number] Co mmon 00:00:00 00:00:00 VISIT EST Spir it PT LEVEL 3 - [facility] 2021-05-14 2021-05-14 (TEL) STLMLC STLMLC [id number] Co mmon 00:00:00 00:00:00 Spirit [facility] 2021-04-23 2021-04-24 Outpatient nullFlavo MNA [id number] Memoria 16:00:00 05:59:59 r Neurology 04 l Cimarron Kasi 2021-04-23 2021-04-24 Outpatient nullFlavo MNA [id number] Memoria 16:00:00 05:59:59 r Neurology 04 l Isael Villaseñor 2021-04-23 2021-04-23 [id number] 10:00:00 23:59:59 Regulo 04 Jose 2021-04-23 2021-04-23 Outpatient MHIE MHIE [id number] Memoria 10:00:00 10:00:00 04 radha Villaseñor 2021-03-30 2021-03-30 (TEL) STLMLC STLMLC [id number] Co mmon 00:00:00 00:00:00 Spirit - [facility] 2021-03-26 2021-03-26 OFFICE STLMLC STLMLC [id number] Co mmon 00:00:00 00:00:00 VISIT Spirit ESTAB PT - CHI LEVEL 4 [facility] 2021-03-22 2021-03-23 Outpatient nullFlavo MNA [id number] Memoria 18:00:00 04:59:59 r Neurology 03 radha Villaseñor 2021-03-22 2021-03-23 Outpatient nullFlavo MNA [id number] Memoria 18:00:00 04:59:59 r Neurology 03 radha Villaseñor 2021-03-22 2021-03-22 [id number] 13:00:00 23:59:59 Regulo 03 Jose 2021-03-22 2021-03-22 Outpatient MHIE MHIE [id number] Memoria 13:00:00 13:00:00 03 radha Villaseñor 2021-03-21 2021-03-21 Ambulatory nullFlavo MNA [id number] Memoria 19:15:00 19:15:00 Pre-Reg r Neurology 02 radha Villaseñor 2021-03-21 2021-03-21 Ambulatory nullFlavo MNA [id number] Memoria 19:15:00 19:15:00 Pre-Reg r Neurology 02 radha Villaseñor 2021-03-21 2021-03-21 Ambulatory nullFlavo MNA [id number] Memoria 15:30:00 15:30:00 Pre-Reg r Neurology 01 radha Villaseñor 2021-03-21 2021-03-21 Ambulatory nullFlavo MNA [id number] Memoria 15:30:00 15:30:00 Pre-Reg r Neurology 01 radha Villaseñor 2021-03-21 2021-03-21 Outpatient MHIE MHIE [id number] Memoria 14:15:00 14:15:00 02 radha Villaseñor 2021-03-21 2021-03-21 Outpatient ARIANNE VillaMISCHER MHMISCHER [id number] 14:15:00 14:15:00 Regulo 02 Jose 2021-03-21 2021-03-21 Outpatient MHIE MHIE [id number] Memoria 10:30:00 10:30:00 01 radha Villaseñor 2021-03-21 2021-03-21 Outpatient LACEY VillaSCHER MISCHER [id number] 10:30:00 10:30:00 Regulo Jose 2021-03-13 2021-03-13 (TEL) STLMLC STLMLC [id number] Co mmon 00:00:00 00:00:00 [facility] 2021-03-07 2021-03-07 (TEL) STLMLC STLMLC [id number] Co mmon 00:00:00 00:00:00 [facility] 2021-02-26 2021-02-26 OFFICE STLMLC STLMLC [id number] Co mmon 00:00:00 00:00:[address] [facility] LEVEL 4 [facility] 2021-02-21 2021-02-22 Outpatient nullFlavo MNA [id number] Memoria 18:15:00 04:59:59 r Neurology 00 l Isael Villaseñor 2021-02-21 2021-02-22 Outpatient nullFlavo MNA [id number] Memoria 18:15:00 04:59:59 r Neurology 00 l Isael Moranann 2021-02-21 2021-02-21 Outpatient Daisy MHMISCHER MHMISCHER [id number] 13:15:00 23:59:59 Regulo 00 Jose 2021-02-21 2021-02-21 Outpatient MHIE MHIE [id number] Memoria 13:15:00 13:15:00 00 radha Villaseñor 2021-01-182021-01-18 Outpatient STLMLC STLMLC [id number] Common 00:00:00 00:00:00 [facility] 2020-12-20 2020-12-20 Outpatient STLMLC STLMLC [id number] Common 00:00:00 00:00:00 [facility] 2020-12-01 2020-12-01 Outpatient STLMLC STLMLC [id number] Common 00:00:00 00:00:00 [facility] 2020-11-30 2020-11-30 Outpatient STLMLC STLMLC [id number] Common 00:00:00 00:00:00 [facility] 2020-11-21 2020-11-21 Outpatient STLMLC STLMLC [id number] Common 00:00:00 00:00:00 [facility] 2020-10-18 2020-10-18 Outpatient STLMLC STLMLC [id number] Common 00:00:00 00:00:00 [facility] 2020-10-06 2020-10-06 Outpatient STLMLC STLMLC [id number] Common 00:00:00 00:00:00 [facility] 2020-09-25 2020-09-25 Outpatient STLMLC STLMLC [id number] Common 00:00:00 00:00:00 [facility] 2020-09-15 2020-09-15 Outpatient Yan_W MMG MMG [id number] [place] 07:15:00 07:15:00 0517 [facility] 2020-09-14 2020-09-14 Outpatient Yan_W MMG MMG [id number] [place] 03:44:00 03:44:00 0429 [facility] 2020-09-14 2020-09-14 Outpatient Yan_W MMG MMG [id number] [place] 03:44:00 03:44:00 0430 [facility] 2020-09-14 2020-09-14 SHUN Garcia [place] - [id number] [place] 00:00:00 00:00:00 MD: [facility] [address], [facility], Otolaryngol [facility] [address] , Ph. 2020-09-13 2020-09-13 Outpatient STLMLC STLMLC [id number] Common 00:00:00 00:00:00 [facility] 2020-09-13 2020-09-13 Outpatient STLMLC STLMLC [id number] Common 00:00:00 00:00:00 [facility] 2020-09-08 2020-09-08 Outpatient Yan_W MMG MMG [id number] [place] 02:57:00 02:57:00 0423 [facility] 2020-09-05 2020-09-05 Outpatient STLMLC STLMLC [id number] Common 00:00:00 00:00:00 [facility] 2020-06-01 2020-06-01 Outpatient Yan_W MMG MMG [id number] [place] 09:10:00 09:10:00 0203 [facility] 2020-05-31 2020-05-31 Outpatient Yan_W MMG MMG [id number] [place] 09:49:00 09:49:00 0113 [facility] 2020-05-31 2020-05-31 Mansoor Lemus MMG [place] - [id number] [place] 00:00:00 00:00:00 : [facility] [address], [facility], Otolaryngol [facility] [address] , Ph. 2020-04-05 2020-04-05 Outpatient Yan_W MMG MMG [id number] [place] 02:30:00 02:30:00 1118 [facility] 2020-03-13 2020-03-13 Outpatient Yan_W MMG MMG [id number] [place] 09:57:00 09:57:00 1031 [facility] 2020-03-13 2020-03-13 Outpatient Yan_W MMG MMG [id number] [place] 09:56:00 09:56:00 1026 Medical Group 2020-03-07 2020-03-07 [id number] [place] 02:52:00 02:52:00 1020 [facility] 2020-03-07 2020-03-07 Outpatient Yan_W MMG [facility] [id number] [place] 02:52:00 02:52:00 1025 Medical Group 2020-03-07 2020-03-07 Mansoor Lemus MMG [place] - [id number] [place] 00:00:00 00:00:00 MD: [facility] [address], [facility], Otolaryngol [place] [facility] [address] , Ph. 2020-02-29 2020-02-29 [facility] [id number] [place] 12:29:00 12:29:00 1013 [facility] Group 2019-12-27 2019-12-27 [facility] [id number] Common 11:15:00 11:15:[address] [facility] 2019-12-27 2019-12-27 [facility] [id number] Common 09:19:00 09:19:00 t [facility] Spir [address] [facility] 2019-10-26 2019-10-26 [facility] [id number] Common 08:15:00 08:15:[address] [facility] 2019-10-20 2019-10-20 Out[facility] [id number] Common 23:40:00 23:40:[address] [facility] 2019-10-20 2019-10-20 [facility] [id number] Common 14:40:00 14:40:[address] [facility] [address] [facility] 2019-08-19 2019-08-19 [facility] [id number] Common 11:54:00 11:54:[address] [facility] 2019-07-25 2019-07-25 Out[facility] [id number] Common 13:11:00 13:11:[address] [facility] 2019-07-20 2019-07-20 [facility] [id number] Common 11:00:00 11:00:[address] [facility] 2019-04-24 2019-04-24 [facility] [id number] Common 03:26:00 03:26:[address] [facility] 2019-04-20 2019-04-20 [facility] [id number] Common 09:40:00 09:40:[address] [facility] 2019-03-22 2019-03-22 Outpatient zzzAmy Judy [id number] Common 14:55:00 14:55:00 Yanick Boudreauxler Sp loren DO [facility] 2019-01-19 2019-01-19 [facility] [id number] Common 14:40:00 14:40:[address] [facility] 2018-11-04 2018-11-04 Out[facility] [id number] Common 12:03:00 12:03:[address] [facility] 2018-08-26 2018-08-26 [facility] [id number] Common 11:20:00 11:20:[address] [facility] 2018-08-14 2018-08-14 [facility] [id number] Common 14:30:00 14:30:[address] [facility] 2018-08-03 2018-08-03 [facility] [id number] Common 12:32:00 12:32:[address] [facility] 2018-06-01 2018-06-01 Out[facility] [id number] Common 10:15:00 10:15:[address] [facility] 2018-03-02 2018-03-02 Out[facility] [id number] Common 09:00:00 09:00:[address] [facility] 2018-01-30 2018-01-30 [facility] [id number] Common 11:30:00 11:30:[address] [facility] 2018-01-20 2018-01-20 [facility] [id number] Common 09:46:00 09:46:[address] [facility] 2018-01-13 2018-01-13 [facility] [id number] Common 10:00:00 10:00:00 [facility] 2017-12-25 2017-12-25 [facility] [id number] Common 10:56:00 10:56:[address] [facility] 2017-12-09 2017-12-09 [facility] [id number] Common 21:03:00 21:03:[address] [facility] 2017-12-09 2017-12-09 [facility] [id number] Common 09:45:00 09:45:[address] [facility] 2017-12-03 2017-12-03 [facility] [id number] Common 10:45:00 10:45:[address] [facility] 2017-09-05 2017-09-05 [facility] [id number] Common 16:00:00 16:00:00 t [facility] Clinic [facility] 2017-07-11 2017-07-11 Outpatient Yahaira ROBLEDO [facility] [id number] 17:58:00 17:58:00 [facility] 2015-08-10 2015-08-10 Outpatient SOURAV ROBLEDO [facility] [id number] [place] 17:02:00 17:02:00 [id number] [facility] 2015-04-20 2015-04-21 Outpatient SOURAV ROBLEDO [facility] [id number] [place] 05:46:00 13:55:00 [id number] [facility] 2015-04-03 2015-04-03 Outpatient SOURAV ROBLEDO [facility] [id number] [place] 09:00:00 09:00:00 [id number] [facility] 2014-12-12 2014-12-12 Outpatient SOURAV ROBLEDO [facility] [id number] [place] 10:22:00 10:22:00 [id number] [facility] 2014-11-23 2014-11-23 Outpatient SOURAV ROBLEDO [facility] [id number] [place] 16:15:00 16:15:00 [id number] [facility] 2014-08-09 2014-08-09 Outpatient SOURAV ROBLEDO [facility] [id number] [place] 12:50:00 12:50:00 [id number] [facility] Results Test Description Test Time Test Comments Results Result Comments Source EXTERNAL FIT DNA 2022-06-21 10:34:00 Test Item Value Reference Range Interpretation Comme nts CHENCHO (test code = Test Result Negative Negative ? 06/21/2022 4:34 AM TRIM TECHNICIAN EXACT CHENCHO) IAT-Auto (CLIA #:[id number]) ?Comment: Fo und in Care EveryWhere/Epic. 05/30/2022 Community Orders [facility] ([id number])? [address] [place] [address] 200? CAROL ANTHONY [address]? Aissatou Tapia NP? [address] [facility]? CAROL Juárez [address]? ? Colon cancer screening (Pr imary Dx) [...] (Tito Beasley al, N Engl J Med 2014;370(14):3888-2718) The normal value (reference ra nge) for this assay is negative. COLOGUARD RE-SCREENING RECOMME NDATION: Periodic colorectal cancer screening is an important p art of preventive healthcare for asymptomatic individuals at average risk for colorectal cancer. ?Following a negative [place] guard result, the [place] Cancer Society and U.S. Multi-Soc iety Task Force screening guidelines recommend a Cologuard re-sc reening interval of 3 years. References: [place] Cancer Socie ty Guideline for Colorectal Cancer Screening: https://www.cancer.org/cancer/gkfcb-qozyjr-mvkymy/dete ction-diagn osis-staging/acs-recommendations.html.; Curtis CARRILLO, Enzo BORJA, Trisha GarciaK, Colorectal Cancer Screening: Recommendati ons for Physicians and Patients from the U.S. Multi-Society Ta sk Force on Colorectal Cancer Screening , Am J Gastroenterology 20 17; 112:3716-4751. Lab Normal Interpretation (test code = 29679-0) [facility] (72572)(NA, K, CL, CO2, GLUCOSE, BUN, CREATININE, CA)2021-11-28 17:43:49 Test Item Value Reference Range Interpretation Comments NA (test code = 141 mmol/L 135-145 4467857833) K (test code = 3.6 mmol/L 3.5-5 4909323906) CL (test code = 104 mmol/L 98-108 2963251012) CO2 TOTAL (test code = 28 mmol/L 23-31 1361373481) AGAP (test code = 2-16 6208727395) BUN (test code = 15 mg/dL 7-23 8336633847) GLUCOSE (test code = 238 mg/dL 70-110 H 1539499289) CREATININE (test code = 0.52 mg/dL 0.5-1.04 5644332082) CALCIUM (test code = 8.6 mg/dL 8.6-10.6 4555907542) eGFR (test code = mL/min/1.73m2 0793008765) CHENCHO (test code = CHENCHO) Association of [...] tests). Lab Interpretation Abnormal (test code = 50022-9) [facility]AL XAN-ZOC2274-64-13 17:36:04 Test Item Value Reference Range Interpretation Comments NT-proBNP (test code 977 pg/mL See_Comment H [Autom ated = [id number]) message] The system which generated this result transmitted reference range : <=125. The reference range was not used to interpret this result as normal/abnormal . CHENCHO (test code = CHENCHO) Biotin has been reported to cause a negative bias, interpret results relative to patient's use of biotin. Lab Interpretation Abnormal (test code = 66232-5) [facility]2022-07-13 17:29:44 Test Item Value Reference Range Interpretation Comments MAGNESIUM (test code = 4829967068) 1.8 mg/dL 1.7-2.4 Lab Interpretation (test code = Normal 08583-9) [facility]MO[facility] [id number] 00:00:00 Test Item Value Reference Range Interpretation Comments A1C (test code = 4548-4) 6.3 HEMOGLOBIN [id number] 00:00:00 Test Item Value Reference Range Interpretation Comments A1C (test code = 4548-4) 6.3 LIZNJVRLTM0394-82-97 12:55:00 Test Item Value Reference Range Interpretation Comments Hgb (test code = Hgb) 12.1 11.7-15.5 [facility] UKRXV1489-94-77 12:55:00 Test Item Value Reference Range Interpretation Comments CO2 (test code = CO2) 29 20-32 [facility] CenterNaevvxcZLNGYQVBWI6881-43-70 12:55:00 Test Item Value Reference Range Interpretation Comments Hct (test code = Hct) 37.8 35.0-45.0 [facility] CenterOspevtlAQJXBIUFJM2142-62-14 12:55:00 Test Item Value Reference Range Interpretation Comments MCV (test code = MCV) 84.0 80.0-100.0 [facility]oaODXYACYNPS9908-61-39 12:55:00 Test Item Value Reference Range Interpretation Comments MCH (test code = MCH) 26.9 pg 27.0-33.0 [facility] CenterFhukvjjHQTZOEPNLT9483-43-44 12:55:00 Test Item Value Reference Range Interpretation Comments MCHC (test code = MCHC) 32.0 32.0-36.0 [facility] CenterAtwjpwkTZJMTDNJID9880-19-44 12:55:00 Test Item Value Reference Range Interpretation Comments RDW (test code = RDW) 14.0 11.0-15.0 [facility] CenterNezwuamUOHGNNKISA9560-80-93 12:55:00 Test Item Value Reference Range Interpretation Comments Platelet (test code = Platelet) 151 140-400 [facility] CenterHyloyejQCBAKDBIFV5893-56-03 12:55:00 Test Item Value Reference Range Interpretation Comments MPV (test code = MPV) 12.1 7.5-12.5 [facility] AreaJwvjohkSBDJZGMGEX5229-93-50 12:55:00 Test Item Value Reference Range Interpretation Comments Neutrophils # (test code = Neutrophils 3139 4844-9121 #) [facility] AreaAuoldmxQVMUDYGGVS4467-46-24 12:55:00 Test Item Value Reference Range Interpretation Comments Lymphocytes # (test code = Lymphocytes 9072 351-4991 #) [facility] AreaQqpapzeHNXCOHDFIS9432-78-52 12:55:00 Test Item Value Reference Range Interpretation Comments Monocytes # (test code = Monocytes #) 350 200-950 [facility]2021-10-07 12:55:00 Test Item Value Reference Range Interpretation Comments Calcium Lvl (test code = Calcium Lvl) 8.7 8.6-10.4 [facility] AreaPnpeashVBCDQRCAQK8233-50-44 12:55:00 Test Item Value Reference Range Interpretation Comments Eosinophils # (test code = Eosinophils 72 15-500 #) [facility] AreaNgltgstHEUHYGPCBA0334-28-29 12:55:00 Test Item Value Reference Range Interpretation Comments Basophils # (test code = Basophils #) 29 <=200 [facility] AreaOpaacgkWBZEIJFFDS6824-89-84 12:55:00 Test Item Value Reference Range Interpretation Comments Segs (test code = Segs) 65.4 [facility] AreaRhmkihsFSWSHWUGLY2289-30-85 12:55:00 Test Item Value Reference Range Interpretation Comments Lymphocytes (test code = Lymphocytes) 25.2 [facility] AreaMrfawwsJIWTEPNNVA7742-97-25 12:55:00 Test Item Value Reference Range Interpretation Comments Monocytes (test code = Monocytes) 7.3 [facility] AreaUmutbhxWRRKTORLXC1119-51-23 12:55:00 Test Item Value Reference Range Interpretation Comments Eosinophils (test code = Eosinophils) 1.5 [facility] AreaIoycyrrVPHJXHBUQV2189-74-62 12:55:00 Test Item Value Reference Range Interpretation Comments Basophils (test code = Basophils) 0.6 [facility] AreaQrtpdnqFEALSLSPOR0065-75-27 12:55:00 Test Item Value Reference Range Interpretation Comments Sed Rate (test code = Sed Rate) 22 [facility]rgzeehYDEHTLYPIQ9713-55-11 12:55:00 Test Item Value Reference Range Interpretation Comments C-REACTIVE PROTEIN (test code = 2.9 C-REACTIVE PROTEIN) [facility]2021-10-07 12:55:00 Test Item Value Reference Range Interpretation Comments Total Protein (test code = Total 6.8 6.1-8.1 Protein) [place] 749461-10-07 12:55:00 Test Item Value Reference Range Interpretation Comments Albumin Lvl (test code = Albumin Lvl) 3.7 3.6-5.1 [place] 749461-10-07 12:55:00 Test Item Value Reference Range Interpretation Comments Globulin (test code = Globulin) 3.1 1.9-3.7 [place] 749461-10-07 12:55:00 Test Item Value Reference Range Interpretation Comments A/G Ratio (test code = A/G Ratio) 1.2 1.0-2.5 [place] 749461-10-07 12:55:00 Test Item Value Reference Range Interpretation Comments Bili Total (test code = Bili Total) 0.6 0.2-1.2 [place] 25793-10-07 12:55:00 Test Item Value Reference Range Interpretation Comments Alk Phos (test code = Alk Phos) 59 37-153 [place] 749461-10-07 12:55:00 Test Item Value Reference Range Interpretation Comments ASPARTATE TRANSAMINASE (test code = 18 10-35 ASPARTATE TRANSAMINASE) [place] 749461-10-07 12:55:00 Test Item Value Reference Range Interpretation Comments ALANINE AMINOTRANSFERASE (test code = 23 6-29 ALANINE AMINOTRANSFERASE) [place] 951631-10-07 12:55:00 Test Item Value Reference Range Interpretation Comments WBC X 10x3 (test code = WBC X 10x3) 4.8 3.8-10.8 [place] [address]-10-07 12:55:00 Test Item Value Reference Range Interpretation Comments RBC X 10x6 (test code = RBC X 10x6) 4.50 3.80-5.10 [place] 951631-10-07 12:55:00 Test Item Value Reference Range Interpretation Comments Hgb (test code = Hgb) 12.1 11.7-15.5 [place] [address]-10-07 12:55:00 Test Item Value Reference Range Interpretation Comments Hct (test code = Hct) 37.8 35.0-45.0 [place] 951631-10-07 12:55:00 Test Item Value Reference Range Interpretation Comments MCV (test code = MCV) 84.0 80.0-100.0 [facility] AreaKygsdizDSKKYKJEAQ2821-78-34 12:55:00 Test Item Value Reference Range Interpretation Comments MCH (test code = MCH) 26.9 pg 27.0-33.0 [facility] AreaIzwgagaNMUUETTHCJ1117-20-05 12:55:00 Test Item Value Reference Range Interpretation Comments MCHC (test code = MCHC) 32.0 32.0-36.0 [facility] AreaMxvazyhXJJBMSLFKT5470-47-07 12:55:00 Test Item Value Reference Range Interpretation Comments RDW (test code = RDW) 14.0 11.0-15.0 [facility] AreaXttjcezTMCSSSNHTG9948-10-49 12:55:00 Test Item Value Reference Range Interpretation Comments Platelet (test code = Platelet) 151 140-400 [facility] AreaRrlzbyxYDMTKXCQCA3207-99-65 12:55:00 Test Item Value Reference Range Interpretation Comments MPV (test code = MPV) 12.1 7.5-12.5 [facility] AreaHnhasmqTUQWWVCYSW1556-96-48 12:55:00 Test Item Value Reference Range Interpretation Comments Neutrophils # (test code = Neutrophils 3139 4985-4605 #) [facility] AreaAurslcvGZSUHPOWBA3733-33-82 12:55:00 Test Item Value Reference Range Interpretation Comments Lymphocytes # (test code = Lymphocytes 6055 628-3292 #) [facility] AreaNazksuiVDXZVPRGAG9019-38-55 12:55:00 Test Item Value Reference Range Interpretation Comments Monocytes # (test code = Monocytes #) 350 200-950 [facility] AreaZtabtyjFCRSAFTZGO4971-15-47 12:55:00 Test Item Value Reference Range Interpretation Comments Eosinophils # (test code = Eosinophils 72 15-500 #) [facility] AreaAurzfmcSUUPDPHHYO6919-49-67 12:55:00 Test Item Value Reference Range Interpretation Comments Basophils # (test code 29 See_Comment [Aut omated message] The = Basophils #) system which generated this result tra nsmitted reference range : <=200. The reference r brice was not used to int erpret this result as normal/abnormal . [facility] AreaGkpfucrIAZMNMIDGM3919-75-74 12:55:00 Test Item Value Reference Range Interpretation Comments Segs (test code = Segs) 65.4 [place] [address]-10-07 12:55:00 Test Item Value Reference Range Interpretation Comments Lymphocytes (test code = Lymphocytes) 25.2 [place] [address]-10-07 12:55:00 Test Item Value Reference Range Interpretation Comments Monocytes (test code = Monocytes) 7.3 [place] [address]-10-07 12:55:00 Test Item Value Reference Range Interpretation Comments Eosinophils (test code = Eosinophils) 1.5 [place] [address]-10-07 12:55:00 Test Item Value Reference Range Interpretation Comments Basophils (test code = Basophils) 0.6 [place] [address]-10-07 12:55:00 Test Item Value Reference Range Interpretation Comments Sed Rate (test code = Sed Rate) 22 [place] 598351-10-07 12:55:00 Test Item Value Reference Range Interpretation Comments C-REACTIVE PROTEIN (test code = 2.9 C-REACTIVE PROTEIN) [facility]2021-10-07 12:55:00 Test Item Value Reference Range Interpretation Comments Vitamin B12 Lvl (test code = Vitamin 228 241-2777 B12 Lvl) [facility]2021-10-07 12:55:00 Test Item Value Reference Range Interpretation Comments Glucose Lvl (test code = Glucose Lvl) 151 65-99 [facility]2021-10-07 12:55:00 Test Item Value Reference Range Interpretation Comments BUN (test code = BUN) 17 7-25 [place] 749461-10-07 12:55:00 Test Item Value Reference Range Interpretation Comments Creatinine Lvl (test code = Creatinine 0.49 0.50-1.05 Lvl) [place] 749461-10-07 12:55:00 Test Item Value Reference Range Interpretation Comments eGFR NON-AFR. BURUNDIAN (test code = 107 eGFR NON-AFR. BURUNDIAN) [place] 749461-10-07 12:55:00 Test Item Value Reference Range Interpretation Comments eGFR (test code = eGFR 124 ) [place] 749461-10-07 12:55:00 Test Item Value Reference Range Interpretation Comments B/C Ratio (test code = B/C Ratio) 35 6-22 [place] 749461-10-07 12:55:00 Test Item Value Reference Range Interpretation [...] CO2 (test code = CO2) 29 20-32 [place] 749461-10-07 12:55:00 Test Item Value Reference Range Interpretation [...] (test code = 23 6-29 ALANINE AMINOTRANSFERASE) [facility] AreaDfnfcwgYCCJHDPPWC3041-15-66 12:55:00 Test Item Value Reference Range Interpretation Comments WBC X 10x3 (test code = WBC X 10x3) 4.8 3.8-10.8 [place] 951631-10-07 12:55:00 Test Item Value Reference Range Interpretation Comments RBC X 10x6 (test code = RBC X 10x6) 4.50 3.80-5.10 [place] 951631-10-07 12:55:00 Test Item Value Reference Range Interpretation Comments Hgb (test code = Hgb) 12.1 11.7-15.5 [place] [address]-10-07 12:55:00 Test Item Value Reference Range Interpretation Comments Hct (test code = Hct) 37.8 35.0-45.0 [place] 951631-10-07 12:55:00 Test Item Value Reference Range Interpretation Comments MCV (test code = MCV) 84.0 80.0-100.0 [place] 951631-10-07 12:55:00 Test Item Value Reference Range Interpretation Comments MCH (test code = MCH) 26.9 pg 27.0-33.0 [place] 951631-10-07 12:55:00 Test Item Value Reference Range Interpretation Comments MCHC (test code = MCHC) 32.0 32.0-36.0 [facility] AreaCjtaipnOPXTRQXSQE7949-56-50 12:55:00 Test Item Value Reference Range Interpretation Comments RDW (test code = RDW) 14.0 11.0-15.0 [place] 951631-10-07 12:55:00 Test Item Value Reference Range Interpretation Comments Platelet (test code = Platelet) 151 140-400 [facility] AreaCnbrftoYVGUFVVJKQ9986-77-47 12:55:00 Test Item Value Reference Range Interpretation Comments MPV (test code = MPV) 12.1 7.5-12.5 [place] 951631-10-07 12:55:00 Test Item Value Reference Range Interpretation Comments Neutrophils # (test code = Neutrophils 3402 2160-7061 #) [facility] AreaBquijxdKCMUFHGZRJ2758-10-01 12:55:00 Test Item Value Reference Range Interpretation Comments Lymphocytes # (test code = Lymphocytes 0928 547-8467 #) [facility] AreaIplnegbHKHJBYIXVN4475-73-29 12:55:00 Test Item Value Reference Range Interpretation Comments Monocytes # (test code = Monocytes #) 350 200-950 [facility] AreaLihfmojJHQRSDGMVG6473-67-62 12:55:00 Test Item Value Reference Range Interpretation Comments Eosinophils # (test code = Eosinophils 72 15-500 #) [facility] AreaPabxebhWVREPSRIAY2268-20-46 12:55:00 Test Item Value Reference Range Interpretation Comments Basophils # (test code 29 See_Comment [Aut omated message] The = Basophils #) system which generated this result tra nsmitted reference range : <=200. The reference r brice was not used to int erpret this result as normal/abnormal . [facility] AreaAglvzebHGTBCXKGKD9821-91-75 12:55:00 Test Item Value Reference Range Interpretation Comments Segs (test code = Segs) 65.4 [facility] AreaOogwhpxRYINUWFEUR6306-58-47 12:55:00 Test Item Value Reference Range Interpretation Comments Lymphocytes (test code = Lymphocytes) 25.2 [facility] AreaBnrybtoXFFIATUZAY6689-88-45 12:55:00 Test Item Value Reference Range Interpretation Comments Monocytes (test code = Monocytes) 7.3 [facility] AreaYdgjfakHIWDXPUZPQ9573-13-06 12:55:00 Test Item Value Reference Range Interpretation Comments Eosinophils (test code = Eosinophils) 1.5 [facility] AreaMplnzywJZZZWFUPQC0492-65-93 12:55:00 Test Item Value Reference Range Interpretation Comments Basophils (test code = Basophils) 0.6 [facility] AreaKaoiacgSURHFSGQFL8241-71-86 12:55:00 Test Item Value Reference Range Interpretation Comments Sed Rate (test code = Sed Rate) 22 [facility]ud[facility]HDLPBEQRK9632-34-73 12:55:00 Test Item Value Reference Range Interpretation Comments C-REACTIVE PROTEIN (test code = 2.9 C-REACTIVE PROTEIN) [facility]2021-10-07 12:55:00 Test Item Value Reference Range Interpretation Comments Vitamin B12 Lvl (test code = Vitamin 764 228-9985 B12 Lvl) [facility]2021-10-07 12:55:00 Test Item Value Reference Range Interpretation Comments Glucose Lvl (test code = Glucose Lvl) 151 65-99 [facility]2021-10-07 12:55:00 Test Item Value Reference Range Interpretation Comments BUN (test code = BUN) 17 7-25 [facility]2021-10-07 12:55:00 Test Item Value Reference Range Interpretation Comments Creatinine Lvl (test code = Creatinine 0.49 0.50-1.05 Lvl) [place] 749461-10-07 12:55:00 Test Item Value Reference Range Interpretation Comments eGFR NON-AFR. BURUNDIAN (test code = 107 eGFR NON-AFR. B[place]UNDIAN) [place] 749461-10-07 12:55:00 Test Item Value Reference Range Interpretation Comments eGFR (test code = eGFR 124 ) [place] 749461-10-07 12:55:00 Test Item Value Reference Range Interpretation Comments B/C Ratio (test code = B/C Ratio) 35 6-22 [place] 749461-10-07 12:55:00 Test Item Value Reference Range Interpretation Comments Sodium Lvl (test code = Sodium Lvl) 140 135-146 [place] 749461-10-07 12:55:00 Test Item Value Reference Range Interpretation Comments Potassium Lvl (test code = Potassium 4.0 3.5-5.3 Lvl) [place] 749461-10-07 12:55:00 Test Item Value Reference Range Interpretation Comments Chloride Lvl (test code = Chloride Lvl) 105 98-110 [place] 749461-10-07 12:55:00 Test Item Value Reference Range Interpretation Comments CO2 (test code = CO2) 29 20-32 [place] 749461-10-07 12:55:00 Test Item Value Reference Range Interpretation Comments Calcium Lvl (test code = Calcium Lvl) 8.7 8.6-10.4 [place] 749461-10-07 12:55:00 Test Item Value Reference Range Interpretation Comments Total Protein (test code = Total 6.8 6.1-8.1 Protein) [place] 749461-10-07 12:55:00 Test Item Value Reference Range Interpretation Comments Albumin Lvl (test code = Albumin Lvl) 3.7 3.6-5.1 [place] 749461-10-07 12:55:00 Test Item Value Reference Range Interpretation Comments Globulin (test code = Globulin) 3.1 1.9-3.7 [place] 749461-10-07 12:55:00 Test Item Value Reference Range Interpretation Comments A/G Ratio (test code = A/G Ratio) 1.2 1.0-2.5 [place] 749461-10-07 12:55:00 Test Item Value Reference Range Interpretation Comments Bili Total (test code = Bili Total) 0.6 0.2-1.2 [place] 749461-10-07 12:55:00 Test Item Value Reference Range Interpretation Comments Alk Phos (test code = Alk Phos) 59 37-153 [place] 749461-10-07 12:55:00 Test Item Value Reference Range Interpretation Comments ASPARTATE TRANSAMINASE (test code = 18 10-35 ASPARTATE TRANSAMINASE) [place] 749461-10-07 12:55:00 Test Item Value Reference Range Interpretation Comments ALANINE AMINOTRANSFERASE (test code = 23 6-29 ALANINE AMINOTRANSFERASE) [place] 951631-10-07 12:55:00 Test Item Value Reference Range Interpretation Comments WBC X 10x3 (test code = WBC X 10x3) 4.8 3.8-10.8 [place] 951631-10-07 12:55:00 Test Item Value Reference Range Interpretation Comments RBC X 10x6 (test code = RBC X 10x6) 4.50 3.80-5.10 [place] 951631-10-07 12:55:00 Test Item Value Reference Range Interpretation Comments Hgb (test code = Hgb) 12.1 11.7-15.5 [place] 951631-10-07 12:55:00 Test Item Value Reference Range Interpretation Comments Hct (test code = Hct) 37.8 35.0-45.0 [place] 951631-10-07 12:55:00 Test Item Value Reference Range Interpretation Comments MCV (test code = MCV) 84.0 80.0-100.0 [place] [address]-10-07 12:55:00 Test Item Value Reference Range Interpretation Comments MCH (test code = MCH) 26.9 pg 27.0-33.0 [place] 951631-10-07 12:55:00 Test Item Value Reference Range Interpretation Comments MCHC (test code = MCHC) 32.0 32.0-36.0 [place] 951631-10-07 12:55:00 Test Item Value Reference Range Interpretation Comments RDW (test code = RDW) 14.0 11.0-15.0 [facility] AreaVvipxjhLEQTXVWEBY7505-74-74 12:55:00 Test Item Value Reference Range Interpretation Comments Platelet (test code = Platelet) 151 140-400 [facility] AreaNcrkvupTWVHVPPCQN6828-80-47 12:55:00 Test Item Value Reference Range Interpretation Comments MPV (test code = MPV) 12.1 7.5-12.5 [facility] AreaYspsczmMJZHJPUXIK9669-45-73 12:55:00 Test Item Value Reference Range Interpretation Comments Neutrophils # (test code = Neutrophils 3139 4284-9089 #) [facility] AreaTbvjgjdGQWCRIKIBR7618-98-38 12:55:00 Test Item Value Reference Range Interpretation Comments Lymphocytes # (test code = Lymphocytes 4120 882-2320 #) [facility] AreaOldxmpcRBZAGWPBAJ6009-04-95 12:55:00 Test Item Value Reference Range Interpretation Comments Monocytes # (test code = Monocytes #) 350 200-950 [facility] AreaQnqnawiBRCFIKVMKH9652-24-11 12:55:00 Test Item Value Reference Range Interpretation Comments Eosinophils # (test code = Eosinophils 72 15-500 #) [facility] AreaZqnplruYFZNIXDANS3349-37-47 12:55:00 Test Item Value Reference Range Interpretation Comments Basophils # (test code 29 See_Comment [Aut omated message] The = Basophils #) system which generated this result tra nsmitted reference range : <=200. The reference r brice was not used to int erpret this result as normal/abnormal . [facility] AreaLjncscwXHBMDLPBQB4886-81-98 12:55:00 Test Item Value Reference Range Interpretation Comments Segs (test code = Segs) 65.4 [facility] AreaMorfzzsBPEWJYKDLD1747-90-22 12:55:00 Test Item Value Reference Range Interpretation Comments Lymphocytes (test code = Lymphocytes) 25.2 [place] 951631-10-07 12:55:00 Test Item Value Reference Range Interpretation Comments Monocytes (test code = Monocytes) 7.3 [facility] AreaHkxmnekTEXXSGQNGC0786-73-02 12:55:00 Test Item Value Reference Range Interpretation Comments Eosinophils (test code = Eosinophils) 1.5 [facility] AreaPdrmppzALTBRPRHDO5422-85-82 12:55:00 Test Item Value Reference Range Interpretation Comments Basophils (test code = Basophils) 0.6 [facility] AreaRhmeeaiAQFOYXBLEM4929-83-12 12:55:00 Test Item Value Reference Range Interpretation Comments Sed Rate (test code = Sed Rate) [facility]ibeoanYGZDQVDULK5162-92-39 12:55:00 Test Item Value Reference Range Interpretation Comments C-REACTIVE PROTEIN (test code = 2.9 C-REACTIVE PROTEIN) [facility]2021-10-07 12:55:00 Test Item Value Reference Range Interpretation Comments Vitamin B12 Lvl (test code = Vitamin 523 272-1150 B12 Lvl) [facility]2021-10-07 12:55:00 Test Item Value Reference Range Interpretation Comments Glucose Lvl (test code = Glucose Lvl) 151 65-99 [facility]2021-10-07 12:55:00 Test Item Value Reference Range Interpretation Comments BUN (test code = BUN) 17 7-25 [facility]2021-10-07 12:55:00 Test Item Value Reference Range Interpretation Comments Vitamin B12 Lvl (test code = Vitamin 235 826-4772 B12 Lvl) [facility]2021-10-07 12:55:00 Test Item Value Reference Range Interpretation Comments Creatinine Lvl (test code = Creatinine 0.49 0.50-1.05 Lvl) [facility]2021-10-07 12:55:00 Test Item Value Reference Range Interpretation Comments eGFR NON-AFR. [place]URUNDIAN (test code = 107 eGFR NON-AFR. BURUNDIAN) [facility]2021-10-07 12:55:00 Test Item Value Reference Range Interpretation Comments eGFR (test code = eGFR 124 ) [place] 749461-10-07 12:55:00 Test Item Value Reference Range Interpretation Comments B/C Ratio (test code = B/C Ratio) 35 6-22 [place] 749461-10-07 12:55:00 Test Item Value Reference Range Interpretation Comments Sodium Lvl (test code = Sodium Lvl) 140 135-146 [place] 749461-10-07 12:55:00 Test Item Value Reference Range Interpretation Comments Potassium Lvl (test code = Potassium 4.0 3.5-5.3 Lvl) [facility]2021-10-07 12:55:00 Test Item Value Reference Range Interpretation Comments Chloride Lvl (test code = Chloride Lvl) 105 98-110 [place] 749461-10-07 12:55:00 Test Item Value Reference Range Interpretation Comments CO2 (test code = CO2) 29 20-32 [place] 749461-10-07 12:55:00 Test Item Value Reference Range Interpretation Comments Calcium Lvl (test code = Calcium Lvl) 8.7 8.6-10.4 [place] 749461-10-07 12:55:00 Test Item Value Reference Range Interpretation Comments Total Protein (test code = Total 6.8 6.1-8.1 Protein) [place] 749461-10-07 12:55:00 Test Item Value Reference Range Interpretation Comments Glucose Lvl (test code = Glucose Lvl) 151 65-99 [place] 749461-10-07 12:55:00 Test Item Value Reference Range Interpretation Comments Albumin Lvl (test code = Albumin Lvl) 3.7 3.6-5.1 [place] 749461-10-07 12:55:00 Test Item Value Reference Range Interpretation Comments Globulin (test code = Globulin) 3.1 1.9-3.7 [place] 749461-10-07 12:55:00 Test Item Value Reference Range Interpretation Comments A/G Ratio (test code = A/G Ratio) 1.2 1.0-2.5 [place] 749461-10-07 12:55:00 Test Item Value Reference Range Interpretation Comments Bili Total (test code = Bili Total) 0.6 0.2-1.2 [place] 749461-10-07 12:55:00 Test Item Value Reference Range Interpretation Comments Alk Phos (test code = Alk Phos) 59 37-153 [place] 749461-10-07 12:55:00 Test Item Value Reference Range Interpretation Comments ASPARTATE TRANSAMINASE (test code = 18 10-35 ASPARTATE TRANSAMINASE) [place] 749461-10-07 12:55:00 Test Item Value Reference Range Interpretation Comments ALANINE AMINOTRANSFERASE (test code = 23 6-29 ALANINE AMINOTRANSFERASE) [place] 951631-10-07 12:55:00 Test Item Value Reference Range Interpretation Comments WBC X 10x3 (test code = WBC X 10x3) 4.8 3.8-10.8 [place] 951631-10-07 12:55:00 Test Item Value Reference Range Interpretation Comments RBC X 10x6 (test code = RBC X 10x6) 4.50 3.80-5.10 [facility] AreaQojekvcRFDVLQCQPC3046-76-31 12:55:00 Test Item Value Reference Range Interpretation Comments Hgb (test code = Hgb) 12.1 11.7-15.5 [facility]2021-10-07 12:55:00 Test Item Value Reference Range Interpretation Comments BUN (test code = BUN) 17 7-25 [facility] AreaIqorwttNTYXTCGSPV0261-38-36 12:55:00 Test Item Value Reference Range Interpretation Comments Hct (test code = Hct) 37.8 35.0-45.0 [facility] AreaXkplukoZAJMGVNQKA0792-74-75 12:55:00 Test Item Value Reference Range Interpretation Comments MCV (test code = MCV) 84.0 80.0-100.0 [facility] AreaLryevydNJKOIIOSCE1857-40-98 12:55:00 Test Item Value Reference Range Interpretation Comments MCH (test code = MCH) 26.9 pg 27.0-33.0 [facility] AreaVrshbmrFNKSRBKSDY6055-86-94 12:55:00 Test Item Value Reference Range Interpretation Comments MCHC (test code = MCHC) 32.0 32.0-36.0 [facility] AreaFnkfeayKYQSKZJFNL0436-01-62 12:55:00 Test Item Value Reference Range Interpretation Comments RDW (test code = RDW) 14.0 11.0-15.0 [facility] AreaCbfitjrLEKIKGZWUT9305-92-11 12:55:00 Test Item Value Reference Range Interpretation Comments Platelet (test code = Platelet) 151 140-400 [facility] AreaPxpegvjWKVQKNTNIC0996-70-55 12:55:00 Test Item Value Reference Range Interpretation Comments MPV (test code = MPV) 12.1 7.5-12.5 [facility] AreaQjwtqtzHGVAKXMINP0994-14-27 12:55:00 Test Item Value Reference Range Interpretation Comments Neutrophils # (test code = Neutrophils 3139 7714-6228 #) [facility] AreaZewznrmOMISVGGYGJ4470-12-24 12:55:00 Test Item Value Reference Range Interpretation Comments Lymphocytes # (test code = Lymphocytes [phone] #) [facility] AreaLmiacmxSEVFXDTMVK8779-16-98 12:55:00 Test Item Value Reference Range Interpretation Comments Monocytes # (test code = Monocytes #) 350 200-950 [facility]2021-10-07 12:55:00 Test Item Value Reference Range Interpretation Comments Creatinine Lvl (test code = Creatinine 0.49 0.50-1.05 Lvl) [facility] AreaAesyxtgRDGKFUUBFR1087-36-46 12:55:00 Test Item Value Reference Range Interpretation Comments Eosinophils # (test code = Eosinophils 72 15-500 #) [facility] AreaQsexnrtFZDIZAEMFS2086-50-15 12:55:00 Test Item Value Reference Range Interpretation Comments Basophils # (test code 29 See_Comment [Aut omated message] The = Basophils #) system which generated this result tra nsmitted reference range : <=200. The reference r brice was not used to int erpret this result as normal/abnormal . [facility] AreaAjptbgbAXLZQDPWIH5440-90-78 12:55:00 Test Item Value Reference Range Interpretation Comments Segs (test code = Segs) 65.4 [place] 951631-10-07 12:55:00 Test Item Value Reference Range Interpretation Comments Lymphocytes (test code = Lymphocytes) 25.2 [facility] AreaYzsxsawQPQXGLPMUC0602-69-60 12:55:00 Test Item Value Reference Range Interpretation Comments Monocytes (test code = Monocytes) 7.3 [place] 951631-10-07 12:55:00 Test Item Value Reference Range Interpretation Comments Eosinophils (test code = Eosinophils) 1.5 [facility] AreaCbppkpbSOLCKBUBAT6482-07-89 12:55:00 Test Item Value Reference Range Interpretation Comments Basophils (test code = Basophils) 0.6 [place] 951631-10-07 12:55:00 Test Item Value Reference Range Interpretation Comments Sed Rate (test code = Sed Rate) 22 [facility]DudmqwsOEXKDIQCZA7050-30-03 12:55:00 Test Item Value Reference Range Interpretation Comments C-REACTIVE PROTEIN (test code = 2.9 C-REACTIVE PROTEIN) [facility]2021-10-07 12:55:00 Test Item Value Reference Range Interpretation Comments eGFR NON-AFR. [place]UNDIAN (test code = 107 eGFR NON-AFR. BURUNDIAN) [facility]2021-10-07 12:55:00 Test Item Value Reference Range Interpretation Comments Vitamin B12 Lvl (test code = Vitamin 271 468-0017 B12 Lvl) [facility]2021-10-07 12:55:00 Test Item Value Reference Range Interpretation Comments Glucose Lvl (test code = Glucose Lvl) 151 65-99 [facility]2021-10-07 12:55:00 Test Item Value Reference Range Interpretation Comments BUN (test code = BUN) 17 7-25 [facility]2021-10-07 12:55:00 Test Item Value Reference Range Interpretation Comments eGFR (test code = eGFR 124 ) [place] 749461-10-07 12:55:00 Test Item Value Reference Range Interpretation Comments Creatinine Lvl (test code = Creatinine 0.49 0.50-1.05 Lvl) [place] 749461-10-07 12:55:00 Test Item Value Reference Range Interpretation Comments eGFR NON-AFR. [place]UNDIAN (test code = 107 eGFR NON-AFR. [place]DIAN) [place] 749461-10-07 12:55:00 Test Item Value Reference Range Interpretation Comments eGFR (test code = eGFR 124 ) [place] 749461-10-07 12:55:00 Test Item Value Reference Range Interpretation Comments B/C Ratio (test code = B/C Ratio) 35 6-22 [place] 749461-10-07 12:55:00 Test Item Value Reference Range Interpretation Comments Sodium Lvl (test code = Sodium Lvl) 140 135-146 [facility]2021-10-07 12:55:00 Test Item Value Reference Range Interpretation Comments Potassium Lvl (test code = Potassium 4.0 3.5-5.3 Lvl) [facility]2021-10-07 12:55:00 Test Item Value Reference Range Interpretation Comments Chloride Lvl (test code = Chloride Lvl) 105 98-110 [place] 749461-10-07 12:55:00 Test Item Value Reference Range Interpretation Comments CO2 (test code = CO2) 29 20-32 [place] 749461-10-07 12:55:00 Test Item Value Reference Range Interpretation Comments Calcium Lvl (test code = Calcium Lvl) 8.7 8.6-10.4 [place] 749461-10-07 12:55:00 Test Item Value Reference Range Interpretation Comments Total Protein (test code = Total 6.8 6.1-8.1 Protein) [facility]2021-10-07 12:55:00 Test Item Value Reference Range Interpretation Comments B/C Ratio (test code = B/C Ratio) 35 6-22 [facility]2021-10-07 12:55:00 Test Item Value Reference Range Interpretation Comments Albumin Lvl (test code = Albumin Lvl) 3.7 3.6-5.1 [place] 749461-10-07 12:55:00 Test Item Value Reference Range Interpretation Comments Globulin (test code = Globulin) 3.1 1.9-3.7 [place] 749461-10-07 12:55:00 Test Item Value Reference Range Interpretation Comments A/G Ratio (test code = A/G Ratio) 1.2 1.0-2.5 [place] 749461-10-07 12:55:00 Test Item Value Reference Range Interpretation Comments Bili Total (test code = Bili Total) 0.6 0.2-1.2 [place] 749461-10-07 12:55:00 Test Item Value Reference Range Interpretation Comments Alk Phos (test code = Alk Phos) 59 37-153 [facility]2021-10-07 12:55:00 Test Item Value Reference Range Interpretation Comments ASPARTATE TRANSAMINASE (test code = 18 10-35 ASPARTATE TRANSAMINASE) [place] 749461-10-07 12:55:00 Test Item Value Reference Range Interpretation Comments ALANINE AMINOTRANSFERASE (test code = 23 6-29 ALANINE AMINOTRANSFERASE) [place] 951631-10-07 12:55:00 Test Item Value Reference Range Interpretation Comments WBC X 10x3 (test code = WBC X 10x3) 4.8 3.8-10.8 [place] [address]-10-07 12:55:00 Test Item Value Reference Range Interpretation Comments RBC X 10x6 (test code = RBC X 10x6) 4.50 3.80-5.10 [place] 951631-10-07 12:55:00 Test Item Value Reference Range Interpretation Comments Hgb (test code = Hgb) 12.1 11.7-15.5 [place] 749461-10-07 12:55:00 Test Item Value Reference Range Interpretation Comments Sodium Lvl (test code = Sodium Lvl) 140 135-146 [place] 951631-10-07 12:55:00 Test Item Value Reference Range Interpretation Comments Hct (test code = Hct) 37.8 35.0-45.0 [place] 951631-10-07 12:55:00 Test Item Value Reference Range Interpretation Comments MCV (test code = MCV) 84.0 80.0-100.0 [facility] AreaSpkwyzuVQKZYGFOQM1971-97-60 12:55:00 Test Item Value Reference Range Interpretation Comments MCH (test code = MCH) 26.9 pg 27.0-33.0 [facility] AreaMpliposVHEOHNOZLG8335-54-61 12:55:00 Test Item Value Reference Range Interpretation Comments MCHC (test code = MCHC) 32.0 32.0-36.0 [facility] AreaGikefaiFXNIDUCCZV3992-82-29 12:55:00 Test Item Value Reference Range Interpretation Comments RDW (test code = RDW) 14.0 11.0-15.0 [facility] AreaKfmcbfhNKAJBUQKLB3993-54-47 12:55:00 Test Item Value Reference Range Interpretation Comments Platelet (test code = Platelet) 151 140-400 [facility] AreaRntnazcINTWRITCOF8093-67-24 12:55:00 Test Item Value Reference Range Interpretation Comments MPV (test code = MPV) 12.1 7.5-12.5 [facility] AreaQnmsueeLILCPIGDBB3578-02-21 12:55:00 Test Item Value Reference Range Interpretation Comments Neutrophils # (test code = Neutrophils 3139 6368-8523 #) [facility] AreaYzsgjhnAAENPNNPZU2631-30-82 12:55:00 Test Item Value Reference Range Interpretation Comments Lymphocytes # (test code = Lymphocytes 1685 017-7588 #) [facility] AreaWcbkwcuHHNHXJVAFD1329-50-20 12:55:00 Test Item Value Reference Range Interpretation Comments Monocytes # (test code = Monocytes #) 350 200-950 [facility]2021-10-07 12:55:00 Test Item Value Reference Range Interpretation Comments Potassium Lvl (test code = Potassium 4.0 3.5-5.3 Lvl) [facility] AreaDgdkjmiYUJQUULOKO2282-06-82 12:55:00 Test Item Value Reference Range Interpretation Comments Eosinophils # (test code = Eosinophils 72 15-500 #) [facility] AreaFcgpajhKSTUROCPHV4837-68-57 12:55:00 Test Item Value Reference Range Interpretation Comments Basophils # (test code 29 See_Comment [Aut omated message] The = Basophils #) system which generated this result tra nsmitted reference range : <=200. The reference r brice was not used to int erpret this result as normal/abnormal . [facility] AreaFqzftaeNLUXXPKRNZ7116-23-45 12:55:00 Test Item Value Reference Range Interpretation Comments Segs (test code = Segs) 65.4 [place] 951631-10-07 12:55:00 Test Item Value Reference Range Interpretation Comments Lymphocytes (test code = Lymphocytes) 25.2 [place] 951631-10-07 12:55:00 Test Item Value Reference Range Interpretation Comments Monocytes (test code = Monocytes) 7.3 [place] 951631-10-07 12:55:00 Test Item Value Reference Range Interpretation Comments Eosinophils (test code = Eosinophils) 1.5 [place] 951631-10-07 12:55:00 Test Item Value Reference Range Interpretation Comments Basophils (test code = Basophils) 0.6 [place] 951631-10-07 12:55:00 Test Item Value Reference Range Interpretation Comments Sed Rate (test code = Sed Rate) 22 [facility]WD39[facility] 12:55:00 Test Item Value Reference Range Interpretation Comments C-REACTIVE PROTEIN (test code = 2.9 C-REACTIVE PROTEIN) [facility]2021-10-07 12:55:00 Test Item Value Reference Range Interpretation Comments Chloride Lvl (test code = Chloride Lvl) 105 98-110 [facility]2021-10-07 12:55:00 Test Item Value Reference Range Interpretation Comments Vitamin B12 Lvl (test code = Vitamin 705 117-2614 B12 Lvl) [facility]2021-10-07 12:55:00 [...] (test code = Creatinine 0.49 0.50-1.05 Lvl) [place] 749461-10-07 12:55:00 Test Item Value Reference Range Interpretation Comments eGFR NON-AFR. BURUNDIAN (test code = 107 eGFR NON-AFR. B[place]DIAN) [place] 749461-10-07 12:55:00 Test Item Value Reference Range Interpretation Comments eGFR (test code = eGFR 124 ) [place] 749461-10-07 12:55:00 Test Item Value Reference Range Interpretation Comments B/C Ratio (test code = B/C Ratio) 35 6-22 [place] 749461-10-07 12:55:00 Test Item Value Reference Range Interpretation Comments Sodium Lvl (test code = Sodium Lvl) 140 135-146 [place] 749461-10-07 12:55:00 Test Item Value Reference Range Interpretation Comments Potassium Lvl (test code = Potassium 4.0 3.5-5.3 Lvl) [place] 749461-10-07 12:55:00 Test Item Value Reference Range Interpretation Comments Chloride Lvl (test code = Chloride Lvl) 105 98-110 [place] 749461-10-07 12:55:00 Test Item Value Reference Range Interpretation Comments CO2 (test code = CO2) 29 20-32 [place] 749461-10-07 12:55:00 Test Item Value Reference Range Interpretation Comments Calcium Lvl (test code = Calcium Lvl) 8.7 8.6-10.4 [facility]2021-10-07 12:55:00 Test Item Value Reference Range Interpretation Comments Total Protein (test code = Total 6.8 6.1-8.1 Protein) [facility]2021-10-07 12:55:00 Test Item Value Reference Range Interpretation Comments Calcium Lvl (test code = Calcium Lvl) 8.7 8.6-10.4 [place] 749461-10-07 12:55:00 Test Item Value Reference Range Interpretation Comments Albumin Lvl (test code = Albumin Lvl) 3.7 3.6-5.1 [place] 749461-10-07 12:55:00 Test Item Value Reference Range Interpretation Comments Globulin (test code = Globulin) 3.1 1.9-3.7 [place] 749461-10-07 12:55:00 Test Item Value Reference Range Interpretation Comments A/G Ratio (test code = A/G Ratio) 1.2 1.0-2.5 [place] 749461-10-07 12:55:00 Test Item Value Reference Range Interpretation Comments Bili Total (test code = Bili Total) 0.6 0.2-1.2 [place] 749461-10-07 12:55:00 Test Item Value Reference Range Interpretation Comments Alk Phos (test code = Alk Phos) 59 37-153 [place] 749461-10-07 12:55:00 Test Item Value Reference Range Interpretation Comments ASPARTATE TRANSAMINASE (test code = 18 10-35 ASPARTATE TRANSAMINASE) [place] 749461-10-07 12:55:00 Test Item Value Reference Range Interpretation Comments ALANINE AMINOTRANSFERASE (test code = 23 6-29 ALANINE AMINOTRANSFERASE) [place] [address]-10-07 12:55:00 Test Item Value Reference Range Interpretation Comments WBC X 10x3 (test code = WBC X 10x3) 4.8 3.8-10.8 [place] 951631-10-07 12:55:00 Test Item Value Reference Range Interpretation Comments RBC X 10x6 (test code = RBC X 10x6) 4.50 3.80-5.10 [place] [address]-10-07 12:55:00 Test Item Value Reference Range Interpretation Comments Hgb (test code = Hgb) 12.1 11.7-15.5 [place] 749461-10-07 12:55:00 Test Item Value Reference Range Interpretation Comments Total Protein (test code = Total 6.8 6.1-8.1 Protein) [place] [address]-10-07 12:55:00 Test Item Value Reference Range Interpretation Comments Hct (test code = Hct) 37.8 35.0-45.0 [place] [address]-10-07 12:55:00 Test Item Value Reference Range Interpretation Comments MCV (test code = MCV) 84.0 80.0-100.0 [place] [address]-10-07 12:55:00 Test Item Value Reference Range Interpretation Comments MCH (test code = MCH) 26.9 pg 27.0-33.0 [place] 951631-10-07 12:55:00 Test Item Value Reference Range Interpretation Comments MCHC (test code = MCHC) 32.0 32.0-36.0 [facility] AreaJsdwfboGIYVQPDCCN9439-60-09 12:55:00 Test Item Value Reference Range Interpretation Comments RDW (test code = RDW) 14.0 11.0-15.0 [place] 951631-10-07 12:55:00 Test Item Value Reference Range Interpretation Comments Platelet (test code = Platelet) 151 140-400 [facility] AreaXtqwtesORLVUQSTSK7695-15-86 12:55:00 Test Item Value Reference Range Interpretation Comments MPV (test code = MPV) 12.1 7.5-12.5 [place] 951631-10-07 12:55:00 Test Item Value Reference Range Interpretation Comments Neutrophils # (test code = Neutrophils 3139 6803-0738 #) [facility] AreaRdxmzkuTVQAZSWULS2112-74-61 12:55:00 Test Item Value Reference Range Interpretation Comments Lymphocytes # (test code = Lymphocytes 7061 614-6074 #) [facility] AreaQjlnofeOBAQUABXVT5321-30-29 12:55:00 Test Item Value Reference Range Interpretation Comments Monocytes # (test code = Monocytes #) 350 200-950 [facility]2021-10-07 12:55:00 Test Item Value Reference Range Interpretation Comments Albumin Lvl (test code = Albumin Lvl) 3.7 3.6-5.1 [facility] AreaUnacihyXRSJQSQPVD2084-19-42 12:55:00 Test Item Value Reference Range Interpretation Comments Eosinophils # (test code = Eosinophils 72 15-500 #) [facility] AreaSejnfujNGVABONFZN1341-11-99 12:55:00 Test Item Value Reference Range Interpretation Comments Basophils # (test code 29 See_Comment [Aut omated message] The = Basophils #) system which generated this result tra nsmitted reference range : <=200. The reference r brice was not used to int erpret this result as normal/abnormal . [facility] AreaMrahojvTEIDDWQYVM1594-67-80 12:55:00 Test Item Value Reference Range Interpretation Comments Segs (test code = Segs) 65.4 [place] 951631-10-07 12:55:00 Test Item Value Reference Range Interpretation Comments Lymphocytes (test code = Lymphocytes) 25.2 [place] 951631-10-07 12:55:00 Test Item Value Reference Range Interpretation Comments Monocytes (test code = Monocytes) 7.3 [facility] AreaDdguudsVENDFAYAFA7140-48-26 12:55:00 Test Item Value Reference Range Interpretation Comments Eosinophils (test code = Eosinophils) 1.5 [facility] AreaDyvfeimQOECSCEYRG8577-49-55 12:55:00 Test Item Value Reference Range Interpretation Comments Basophils (test code = Basophils) 0.6 [place] 951631-10-07 12:55:00 Test Item Value Reference Range Interpretation Comments Sed Rate (test code = Sed Rate) 22 [facility]ppahtXOXCQTVGEI2687-54-28 12:55:00 Test Item Value Reference Range Interpretation Comments C-REACTIVE PROTEIN (test code = 2.9 C-REACTIVE PROTEIN) [facility]2021-10-07 12:55:00 Test Item Value Reference Range Interpretation Comments Globulin (test code = Globulin) 3.1 1.9-3.7 [facility]2021-10-07 12:55:00 Test Item Value Reference Range Interpretation Comments Vitamin B12 Lvl (test code = Vitamin 648 341-4480 B12 Lvl) [facility]2021-10-07 12:55:00 Test Item Value Reference Range Interpretation Comments Glucose Lvl (test code = Glucose Lvl) 151 65-99 [facility]2021-10-07 12:55:00 Test Item Value Reference Range Interpretation Comments BUN (test code = BUN) 17 7-25 [place] 749461-10-07 12:55:00 Test Item Value Reference Range Interpretation Comments A/G Ratio (test code = A/G Ratio) 1.2 1.0-2.5 [facility]2021-10-07 12:55:00 Test Item Value Reference Range Interpretation Comments Creatinine Lvl (test code = Creatinine 0.49 0.50-1.05 Lvl) [facility]2021-10-07 12:55:00 Test Item Value Reference Range Interpretation Comments eGFR NON-AFR. [place] (test code = 107 eGFR NON-AFR. BURUNDIAN) [facility]2021-10-07 12:55:00 Test Item [...] CO2 (test code = CO2) 29 20-32 [place] 749461-10-07 12:55:00 Test Item Value Reference Range Interpretation Comments Calcium Lvl (test code = Calcium Lvl) 8.7 8.6-10.4 [place] 749461-10-07 12:55:00 Test Item Value Reference Range Interpretation Comments Total Protein (test code = Total 6.8 6.1-8.1 Protein) [facility]2021-10-07 12:55:00 Test Item Value Reference Range Interpretation Comments Bili Total (test code = Bili Total) 0.6 0.2-1.2 [place] 749461-10-07 12:55:00 Test Item Value Reference Range Interpretation Comments Albumin Lvl (test code = Albumin Lvl) 3.7 3.6-5.1 [facility]2021-10-07 12:55:00 Test Item Value Reference Range Interpretation Comments Globulin (test code = Globulin) 3.1 1.9-3.7 [place] 749461-10-07 12:55:00 Test Item Value Reference Range Interpretation Comments A/G Ratio (test code = A/G Ratio) 1.2 1.0-2.5 [facility]2021-10-07 12:55:00 Test Item Value Reference Range Interpretation Comments Bili Total (test code = Bili Total) 0.6 0.2-1.2 [place] 749461-10-07 12:55:00 Test Item Value Reference Range Interpretation Comments Alk Phos (test code = Alk Phos) 59 37-153 [facility]2021-10-07 12:55:00 Test Item Value Reference Range Interpretation Comments ASPARTATE TRANSAMINASE (test code = 18 10-35 ASPARTATE TRANSAMINASE) [facility]2021-10-07 12:55:00 Test Item Value Reference Range Interpretation Comments ALANINE AMINOTRANSFERASE (test code = 23 6-29 ALANINE AMINOTRANSFERASE) [facility] AreaXsbqthiNKWLESSNKX7003-26-76 12:55:00 Test Item Value Reference Range Interpretation Comments WBC X 10x3 (test code = WBC X 10x3) 4.8 3.8-10.8 [facility] AreaPfmvdtyUXUBDMOYDJ6245-38-49 12:55:00 Test Item Value Reference Range Interpretation Comments RBC X 10x6 (test code = RBC X 10x6) 4.50 3.80-5.10 [facility] AreaLcjsfgdDDMJAZZVFL7652-67-10 12:55:00 Test Item Value Reference Range Interpretation Comments Hgb (test code = Hgb) 12.1 11.7-15.5 [facility]2021-10-07 12:55:00 Test Item Value Reference Range Interpretation Comments Alk Phos (test code = Alk Phos) 59 37-153 [facility] AreaLsfrmymRZTWFKCHUP9193-49-08 12:55:00 Test Item Value Reference Range Interpretation Comments Hct (test code = Hct) 37.8 35.0-45.0 [facility] AreaWqzzwzmGUICYDONKO8290-19-10 12:55:00 Test Item Value Reference Range Interpretation Comments MCV (test code = MCV) 84.0 80.0-100.0 [facility] AreaMynqdegVSNQGWHCUE6570-67-75 12:55:00 Test Item Value Reference Range Interpretation Comments MCH (test code = MCH) 26.9 pg 27.0-33.0 [place] 951631-10-07 12:55:00 Test Item Value Reference Range Interpretation Comments MCHC (test code = MCHC) 32.0 32.0-36.0 [place] 951631-10-07 12:55:00 Test Item Value Reference Range Interpretation Comments RDW (test code = RDW) 14.0 11.0-15.0 [place] 951631-10-07 12:55:00 Test Item Value Reference Range Interpretation Comments Platelet (test code = Platelet) 151 140-400 [place] 951631-10-07 12:55:00 Test Item Value Reference Range Interpretation Comments MPV (test code = MPV) 12.1 7.5-12.5 [facility] AreaLltmofwFRJUNKKQMU8028-85-32 12:55:00 Test Item Value Reference Range Interpretation Comments Neutrophils # (test code = Neutrophils 3139 9935-6329 #) [facility] AreaAhibtxcNYTNLLQDQC2611-03-53 12:55:00 Test Item Value Reference Range Interpretation Comments Lymphocytes # (test code = Lymphocytes [phone] #) [facility] AreaEshoxegLYTEXAMHKF6466-67-83 12:55:00 Test Item Value Reference Range Interpretation Comments Monocytes # (test code = Monocytes #) 350 200-950 [facility]2021-10-07 12:55:00 Test Item Value Reference Range Interpretation Comments ASPARTATE TRANSAMINASE (test code = 18 10-35 ASPARTATE TRANSAMINASE) [facility] AreaHmpmjofKAEEUGYXKC7665-85-86 12:55:00 Test Item Value Reference Range Interpretation Comments Eosinophils # (test code = Eosinophils 72 15-500 #) [facility] AreaZlwybkmTOYYLPDIKP5017-49-11 12:55:00 Test Item Value Reference Range Interpretation Comments Basophils # (test code 29 See_Comment [Aut omated message] The = Basophils #) system which generated this result tra nsmitted reference range : <=200. The reference r brice was not used to int erpret this result as normal/abnormal . [facility] AreaKfrtwrtLFEPOODFFE9456-55-57 12:55:00 Test Item Value Reference Range Interpretation Comments Segs (test code = Segs) 65.4 [place] 951631-10-07 12:55:00 Test Item Value Reference Range Interpretation Comments Lymphocytes (test code = Lymphocytes) 25.2 [place] 951631-10-07 12:55:00 Test Item Value Reference Range Interpretation Comments Monocytes (test code = Monocytes) 7.3 [place] 951631-10-07 12:55:00 Test Item Value Reference Range Interpretation Comments Eosinophils (test code = Eosinophils) 1.5 [place] 951631-10-07 12:55:00 Test Item Value Reference Range Interpretation Comments Basophils (test code = Basophils) 0.6 [place] 951631-10-07 12:55:00 Test Item Value Reference Range Interpretation Comments Sed Rate (test code = Sed Rate) [address]10-07 12:55:00 Test Item Value Reference Range Interpretation Comments C-REACTIVE PROTEIN (test code = 2.9 C-REACTIVE PROTEIN) [place] 749461-10-07 12:55:00 Test Item Value Reference Range Interpretation Comments ALANINE AMINOTRANSFERASE (test code = 23 6-29 ALANINE AMINOTRANSFERASE) [facility]2021-10-07 12:55:00 Test Item Value Reference Range Interpretation Comments Vitamin B12 Lvl (test code = Vitamin 039 441-3391 B12 Lvl) [facility]2021-10-07 12:55:00 Test Item Value Reference Range Interpretation Comments Glucose Lvl (test code = Glucose Lvl) 151 65-99 [place] 749461-10-07 12:55:00 Test Item Value Reference Range Interpretation Comments BUN (test code = BUN) 17 7-25 [facility] AreaZgkffuiODTWOAZZCW3098-12-20 12:55:00 Test Item Value Reference Range Interpretation Comments WBC X 10x3 (test code = WBC X 10x3) 4.8 3.8-10.8 [facility]2021-10-07 12:55:00 Test Item Value Reference Range Interpretation Comments Creatinine Lvl (test code = Creatinine 0.49 0.50-1.05 Lvl) [facility]2021-10-07 12:55:00 Test Item Value Reference Range Interpretation Comments eGFR NON-AFR. [place] (test code = 107 eGFR NON-AFR. B[place]UNDIAN) [facility]2021-10-07 12:55:00 Test Item [...] (test code = Potassium 4.0 3.5-5.3 Lvl) [place] 749461-10-07 12:55:00 Test Item Value Reference Range Interpretation Comments Chloride Lvl (test code = Chloride Lvl) 105 98-110 [facility]2021-10-07 12:55:00 Test Item Value Reference Range Interpretation Comments CO2 (test code = CO2) 29 20-32 [place] 749461-10-07 12:55:00 Test Item Value Reference Range Interpretation Comments Calcium Lvl (test code = Calcium Lvl) 8.7 8.6-10.4 [place] 749461-10-07 12:55:00 Test Item Value Reference Range Interpretation Comments Total Protein (test code = Total 6.8 6.1-8.1 Protein) [facility] AreaQvprkucEGAAPSUOOF4465-03-46 12:55:00 Test Item Value Reference Range Interpretation Comments RBC X 10x6 (test code = RBC X 10x6) 4.50 3.80-5.10 [place] 749461-10-07 12:55:00 Test Item Value Reference Range Interpretation Comments Albumin Lvl (test code = Albumin Lvl) 3.7 3.6-5.1 [place] 749461-10-07 12:55:00 Test Item Value Reference Range Interpretation Comments Globulin (test code = Globulin) 3.1 1.9-3.7 [place] 749461-10-07 12:55:00 Test Item Value Reference Range Interpretation Comments A/G Ratio (test code = A/G Ratio) 1.2 1.0-2.5 [place] 749461-10-07 12:55:00 Test Item Value Reference Range Interpretation Comments Bili Total (test code = Bili Total) 0.6 0.2-1.2 [place] 749461-10-07 12:55:00 Test Item Value Reference Range Interpretation Comments Alk Phos (test code = Alk Phos) 59 37-153 [place] 749461-10-07 12:55:00 Test Item Value Reference Range Interpretation Comments ASPARTATE TRANSAMINASE (test code = 18 10-35 ASPARTATE TRANSAMINASE) [place] 749461-10-07 12:55:00 Test Item Value Reference Range Interpretation Comments ALANINE AMINOTRANSFERASE (test code = 23 6-29 ALANINE AMINOTRANSFERASE) [place] 951631-10-07 12:55:00 Test Item Value Reference Range Interpretation Comments WBC X 10x3 (test code = WBC X 10x3) 4.8 3.8-10.8 [facility] AreaNwjpjuiWHSVWSQKOM1050-72-57 12:55:00 Test Item Value Reference Range Interpretation Comments RBC X 10x6 (test code = RBC X 10x6) 4.50 3.80-5.10 [facility] AreaBpakvomFQXNIURLXV2991-71-54 12:55:00 Test Item Value Reference Range Interpretation Comments Hgb (test code = Hgb) 12.1 11.7-15.5 [facility] AreaEmhazktGIUQXTBNKA3842-96-24 12:55:00 Test Item Value Reference Range Interpretation Comments Hgb (test code = Hgb) 12.1 11.7-15.5 [facility] AreaYcwrjnqOVSGHJUGLR1913-67-60 12:55:00 Test Item Value Reference Range Interpretation Comments Hct (test code = Hct) 37.8 35.0-45.0 [facility] AreaMgquytdNUYFIAUBGB7496-18-31 12:55:00 Test Item Value Reference Range Interpretation Comments MCV (test code = MCV) 84.0 80.0-100.0 [facility] AreaIhtamdpXCPYXUYWVF6395-18-77 12:55:00 Test Item Value Reference Range Interpretation Comments MCH (test code = MCH) 26.9 pg 27.0-33.0 [facility] AreaMfgpkmnXOMDJUAYFC4482-08-54 12:55:00 Test Item Value Reference Range Interpretation Comments MCHC (test code = MCHC) 32.0 32.0-36.0 [facility] AreaEvviropZMYFGGVISM7824-59-31 12:55:00 Test Item Value Reference Range Interpretation Comments RDW (test code = RDW) 14.0 11.0-15.0 [facility] AreaFvzjtqsRTEEXHLMPI6729-79-95 12:55:00 Test Item Value Reference Range Interpretation Comments Platelet (test code = Platelet) 151 140-400 [facility] AreaXnchyqzYDQHYVCBMN7076-36-81 12:55:00 Test Item Value Reference Range Interpretation Comments MPV (test code = MPV) 12.1 7.5-12.5 [facility] AreaDrfxymvJARXYXOPAL4298-80-76 12:55:00 Test Item Value Reference Range Interpretation Comments Neutrophils # (test code = Neutrophils [phone] #) [facility] AreaPyjowoeJUADAYWCGH8653-84-73 12:55:00 Test Item Value Reference Range Interpretation Comments Lymphocytes # (test code = Lymphocytes [phone] #) [facility] AreaAtrgizjBCMMMXVNIW0004-89-71 12:55:00 Test Item Value Reference Range Interpretation Comments Monocytes # (test code = Monocytes #) 350 200-950 [facility] AreaZdvdmiaRYZYKJJNCC2581-28-07 12:55:00 Test Item Value Reference Range Interpretation Comments Hct (test code = Hct) 37.8 35.0-45.0 [facility] AreaFjductyGLVYPNJUFD8966-48-92 12:55:00 Test Item Value Reference Range Interpretation Comments Eosinophils # (test code = Eosinophils 72 15-500 #) [facility] AreaXiqizadLJGLENGAGC6667-26-24 12:55:00 Test Item Value Reference Range Interpretation Comments Basophils # (test code 29 See_Comment [Aut omated message] The = Basophils #) system which generated this result tra nsmitted reference range : <=200. The reference r brice was not used to int erpret this result as normal/abnormal . [facility] AreaZpbdmuzVAQBRSCANE8388-91-69 12:55:00 Test Item Value Reference Range Interpretation Comments Segs (test code = Segs) 65.4 [facility] AreaDnbglewFLOCMDKYEP9189-32-19 12:55:00 Test Item Value Reference Range Interpretation Comments Lymphocytes (test code = Lymphocytes) 25.2 [facility] AreaPoozhwxHGHCHBVIYU5283-21-88 12:55:00 Test Item Value Reference Range Interpretation Comments Monocytes (test code = Monocytes) 7.3 [facility] AreaTuuzdyuIKOPVDQZNO1856-21-07 12:55:00 Test Item Value Reference Range Interpretation Comments Eosinophils (test code = Eosinophils) 1.5 [facility] AreaFyrwbxlYBIQFLLGNH3008-90-08 12:55:00 Test Item Value Reference Range Interpretation Comments Basophils (test code = Basophils) 0.6 [facility] AreaXweikagZBXUGZWCUW4604-28-32 12:55:00 Test Item Value Reference Range Interpretation Comments Sed Rate (test code = Sed Rate) 22 [facility]uv[facility]IXUUMZJUCS7270-08-76 12:55:00 Test Item Value Reference Range Interpretation Comments C-REACTIVE PROTEIN (test code = 2.9 C-REACTIVE PROTEIN) [facility] AreaFqtrxefGEXYGMWFKC3576-96-89 12:55:00 Test Item Value Reference Range Interpretation Comments MCV (test code = MCV) 84.0 80.0-100.0 [facility]2021-10-07 12:55:00 Test Item Value Reference Range Interpretation Comments Vitamin B12 Lvl (test code = Vitamin [phone] B12 Lvl) [place] 749461-10-07 12:55:00 Test Item Value Reference Range Interpretation Comments Glucose Lvl (test code = Glucose Lvl) 151 65-99 [place] 749461-10-07 12:55:00 Test Item Value Reference Range Interpretation Comments BUN (test code = BUN) 17 7-25 [place] 951631-10-07 12:55:00 Test Item Value Reference Range Interpretation Comments MCH (test code = MCH) 26.9 pg 27.0-33.0 [place] 749461-10-07 12:55:00 Test Item Value Reference Range Interpretation Comments Creatinine Lvl (test code = Creatinine 0.49 0.50-1.05 Lvl) [place] 749461-10-07 12:55:00 Test Item Value Reference Range Interpretation Comments eGFR NON-AFR. BURUNDIAN (test code = 107 eGFR NON-AFR. BURUNDIAN) [place] 749461-10-07 12:55:00 Test Item Value Reference Range Interpretation Comments eGFR (test code = eGFR 124 ) [place] 749461-10-07 12:55:00 Test Item Value Reference Range Interpretation Comments B/C Ratio (test code = B/C Ratio) 35 6-22 [place] 749461-10-07 12:55:00 Test Item Value Reference Range Interpretation Comments Sodium Lvl (test code = Sodium Lvl) 140 135-146 [place] 749461-10-07 12:55:00 Test Item Value Reference Range Interpretation Comments Potassium Lvl (test code = Potassium 4.0 3.5-5.3 Lvl) [place] 749461-10-07 12:55:00 Test Item Value Reference Range Interpretation Comments Chloride Lvl (test code = Chloride Lvl) 105 98-110 [place] 749461-10-07 12:55:00 Test Item Value Reference Range Interpretation Comments CO2 (test code = CO2) 29 20-32 [place] 749461-10-07 12:55:00 Test Item Value Reference Range Interpretation Comments Calcium Lvl (test code = Calcium Lvl) 8.7 8.6-10.4 [place] 749461-10-07 12:55:00 Test Item Value Reference Range Interpretation Comments Total Protein (test code = Total 6.8 6.1-8.1 Protein) [place] 951631-10-07 12:55:00 Test Item Value Reference Range Interpretation Comments MCHC (test code = MCHC) 32.0 32.0-36.0 [place] 749461-10-07 12:55:00 Test Item Value Reference Range Interpretation Comments Albumin Lvl (test code = Albumin Lvl) 3.7 3.6-5.1 [place] 749461-10-07 12:55:00 Test Item Value Reference Range Interpretation Comments Globulin (test code = Globulin) 3.1 1.9-3.7 [place] 749461-10-07 12:55:00 Test Item Value Reference Range Interpretation Comments A/G Ratio (test code = A/G Ratio) 1.2 1.0-2.5 [place] 749461-10-07 12:55:00 Test Item Value Reference Range Interpretation Comments Bili Total (test code = Bili Total) 0.6 0.2-1.2 [place] 749461-10-07 12:55:00 Test Item Value Reference Range Interpretation Comments Alk Phos (test code = Alk Phos) 59 37-153 [facility]2021-10-07 12:55:00 Test Item Value Reference Range Interpretation Comments ASPARTATE TRANSAMINASE (test code = 18 10-35 ASPARTATE TRANSAMINASE) [place] 749461-10-07 12:55:00 Test Item Value Reference Range Interpretation Comments ALANINE AMINOTRANSFERASE (test code = 23 6-29 ALANINE AMINOTRANSFERASE) [place] [address]-10-07 12:55:00 Test Item Value Reference Range Interpretation Comments WBC X 10x3 (test code = WBC X 10x3) 4.8 3.8-10.8 [place] 951631-10-07 12:55:00 Test Item Value Reference Range Interpretation Comments RBC X 10x6 (test code = RBC X 10x6) 4.50 3.80-5.10 [place] 951631-10-07 12:55:00 Test Item Value Reference Range Interpretation Comments Hgb (test code = Hgb) 12.1 11.7-15.5 [place] 951631-10-07 12:55:00 Test Item Value Reference Range Interpretation Comments RDW (test code = RDW) 14.0 11.0-15.0 [place] 951631-10-07 12:55:00 Test Item Value Reference Range Interpretation Comments Hct (test code = Hct) 37.8 35.0-45.0 [place] 951631-10-07 12:55:00 Test Item Value Reference Range Interpretation Comments MCV (test code = MCV) 84.0 80.0-100.0 [place] 951631-10-07 12:55:00 Test Item Value Reference Range Interpretation Comments MCH (test code = MCH) 26.9 pg 27.0-33.0 [place] 951631-10-07 12:55:00 Test Item Value Reference Range Interpretation Comments MCHC (test code = MCHC) 32.0 32.0-36.0 [place] 951631-10-07 12:55:00 Test Item Value Reference Range Interpretation Comments RDW (test code = RDW) 14.0 11.0-15.0 [place] 951631-10-07 12:55:00 Test Item Value Reference Range Interpretation Comments Platelet (test code = Platelet) 151 140-400 [facility] AreaDizxntkOSHZGNCXZH1707-23-81 12:55:00 Test Item Value Reference Range Interpretation Comments MPV (test code = MPV) 12.1 7.5-12.5 [facility] AreaOjggfrmQTJLPRLOGR3033-34-92 12:55:00 Test Item Value Reference Range Interpretation Comments Neutrophils # (test code = Neutrophils 3139 6867-8960 #) [facility] AreaDtnppdbSZRCRTYCZO6900-23-38 12:55:00 Test Item Value Reference Range Interpretation Comments Lymphocytes # (test code = Lymphocytes [phone] #) [facility] AreaKdczdobHTQLMSOBTC7184-16-51 12:55:00 Test Item Value Reference Range Interpretation Comments Monocytes # (test code = Monocytes #) 350 200-950 [facility] AreaKdbksqpFGDJGHISIJ3718-32-37 12:55:00 Test Item Value Reference Range Interpretation Comments Platelet (test code = Platelet) 151 140-400 [place] [address]-10-07 12:55:00 Test Item Value Reference Range Interpretation Comments Eosinophils # (test code = Eosinophils 72 15-500 #) [facility] AreaLhkmvrcNUBBKOCAND8126-34-50 12:55:00 Test Item Value Reference Range Interpretation Comments Basophils # (test code 29 See_Comment [Aut omated message] The = Basophils #) system which generated this result tra nsmitted reference range : <=200. The reference r brice was not used to int erpret this result as normal/abnormal . [facility] AreaLwfbqueGSQFDOJQLR2774-70-33 12:55:00 Test Item Value Reference Range Interpretation Comments Segs (test code = Segs) 65.4 [facility] AreaRddcfzrMLNAOFVJTC4515-02-15 12:55:00 Test Item Value Reference Range Interpretation Comments Lymphocytes (test code = Lymphocytes) 25.2 [place] 951631-10-07 12:55:00 Test Item Value Reference Range Interpretation Comments Monocytes (test code = Monocytes) 7.3 [facility] AreaHonolxlJIVSXRDBKE2785-97-78 12:55:00 Test Item Value Reference Range Interpretation Comments Eosinophils (test code = Eosinophils) 1.5 [facility] AreaJrnxldkVQDTIOROCH7476-39-75 12:55:00 Test Item Value Reference Range Interpretation Comments Basophils (test code = Basophils) 0.6 [facility] AreaCtrrjvdGWDCSSUQCX5968-35-74 12:55:00 Test Item Value Reference Range Interpretation Comments Sed Rate (test code = Sed Rate) [facility]KmcvesgMSHPWCIHBD4512-96-57 12:55:00 Test Item Value Reference Range Interpretation Comments C-REACTIVE PROTEIN (test code = 2.9 C-REACTIVE PROTEIN) [facility] AreaUbpkfozCISTAIIZEU1820-80-53 12:55:00 Test Item Value Reference Range Interpretation Comments MPV (test code = MPV) 12.1 7.5-12.5 [facility]2021-10-07 12:55:00 Test Item Value Reference Range Interpretation Comments Vitamin B12 Lvl (test code = Vitamin 451 293-4276 B12 Lvl) [facility]2021-10-07 12:55:00 Test Item Value Reference Range Interpretation Comments Glucose Lvl (test code = Glucose Lvl) 151 65-99 [facility]2021-10-07 12:55:00 Test Item Value Reference Range Interpretation Comments BUN (test code = BUN) 17 7-25 [place] 951631-10-07 12:55:00 Test Item Value Reference Range Interpretation Comments Neutrophils # (test code = Neutrophils 5026 3883-7299 #) [facility]2021-10-07 12:55:00 Test Item Value Reference Range Interpretation Comments Creatinine Lvl (test code = Creatinine 0.49 0.50-1.05 Lvl) [place] 749461-10-07 12:55:00 Test Item Value Reference Range Interpretation Comments eGFR NON-AFR. [place]DIAN (test code = 107 eGFR NON-AFR. BURUNDIAN) [place] 749461-10-07 12:55:00 Test Item Value Reference Range Interpretation Comments eGFR (test code = eGFR 124 ) [place] 749461-10-07 12:55:00 Test Item Value Reference Range Interpretation Comments B/C Ratio (test code = B/C Ratio) 35 6-22 [place] 749461-10-07 12:55:00 Test Item Value Reference Range Interpretation Comments Sodium Lvl (test code = Sodium Lvl) 140 135-146 [place] 749461-10-07 12:55:00 Test Item Value Reference Range Interpretation Comments Potassium Lvl (test code = Potassium 4.0 3.5-5.3 Lvl) [place] 749461-10-07 12:55:00 Test Item Value Reference Range Interpretation Comments Chloride Lvl (test code = Chloride Lvl) 105 98-110 [place] 749461-10-07 12:55:00 Test Item Value Reference Range Interpretation Comments CO2 (test code = CO2) 29 20-32 [place] 749461-10-07 12:55:00 Test Item Value Reference Range Interpretation Comments Calcium Lvl (test code = Calcium Lvl) 8.7 8.6-10.4 [place] 749461-10-07 12:55:00 Test Item Value Reference Range Interpretation Comments Total Protein (test code = Total 6.8 6.1-8.1 Protein) [facility] AreaVwrxlalFQSBZAKHAI6090-22-47 12:55:00 Test Item Value Reference Range Interpretation Comments Lymphocytes # (test code = Lymphocytes 6829 336-1902 #) [facility]2021-10-07 12:55:00 Test Item Value Reference Range Interpretation Comments Albumin Lvl (test code = Albumin Lvl) 3.7 3.6-5.1 [place] 749461-10-07 12:55:00 Test Item Value Reference Range Interpretation Comments Globulin (test code = Globulin) 3.1 1.9-3.7 [place] 749461-10-07 12:55:00 Test Item Value Reference Range Interpretation Comments A/G Ratio (test code = A/G Ratio) 1.2 1.0-2.5 [place] [address]-10-07 12:55:00 Test Item Value Reference Range Interpretation Comments Bili Total (test code = Bili Total) 0.6 0.2-1.2 [place] 749461-10-07 12:55:00 Test Item Value Reference Range Interpretation Comments Alk Phos (test code = Alk Phos) 59 37-153 [place] 749461-10-07 12:55:00 Test Item Value Reference Range Interpretation Comments ASPARTATE TRANSAMINASE (test code = 18 10-35 ASPARTATE TRANSAMINASE) [place] [address]-10-07 12:55:00 Test Item Value Reference Range Interpretation Comments ALANINE AMINOTRANSFERASE (test code = 23 6-29 ALANINE AMINOTRANSFERASE) [place] [address]-10-07 12:55:00 Test Item Value Reference Range Interpretation Comments WBC X 10x3 (test code = WBC X 10x3) 4.8 3.8-10.8 [place] 951631-10-07 12:55:00 Test Item Value Reference Range Interpretation Comments RBC X 10x6 (test code = RBC X 10x6) 4.50 3.80-5.10 [place] [address]-10-07 12:55:00 Test Item Value Reference Range Interpretation Comments Hgb (test code = Hgb) 12.1 11.7-15.5 [place] 951631-10-07 12:55:00 Test Item Value Reference Range Interpretation Comments Monocytes # (test code = Monocytes #) 350 200-950 [place] 951631-10-07 12:55:00 Test Item Value Reference Range Interpretation Comments Hct (test code = Hct) 37.8 35.0-45.0 [place] 951631-10-07 12:55:00 Test Item Value Reference Range Interpretation Comments MCV (test code = MCV) 84.0 80.0-100.0 [place] 951631-10-07 12:55:00 Test Item Value Reference Range Interpretation Comments MCH (test code = MCH) 26.9 pg 27.0-33.0 [facility] AreaRysoapfYQHOCPBLWQ6729-67-54 12:55:00 Test Item Value Reference Range Interpretation Comments MCHC (test code = MCHC) 32.0 32.0-36.0 [facility] AreaCbumqpbHOFIUNBSLW7490-49-26 12:55:00 Test Item Value Reference Range Interpretation Comments RDW (test code = RDW) 14.0 11.0-15.0 [facility] AreaGhgsmgmQYQVZKMFVK7796-37-70 12:55:00 Test Item Value Reference Range Interpretation Comments Platelet (test code = Platelet) 151 140-400 [facility] AreaKbsibtlRZNKBYHKAQ6572-53-39 12:55:00 Test Item Value Reference Range Interpretation Comments MPV (test code = MPV) 12.1 7.5-12.5 [facility] AreaUqukefhTEKTAFICBY8672-96-75 12:55:00 Test Item Value Reference Range Interpretation Comments Neutrophils # (test code = Neutrophils 3139 9005-5307 #) [facility] AreaOhjyydnRFLQAKJCZN0392-04-91 12:55:00 Test Item Value Reference Range Interpretation Comments Lymphocytes # (test code = Lymphocytes 1607 479-0515 #) [facility] AreaXndazpmHGFPBCGYMK4242-56-17 12:55:00 Test Item Value Reference Range Interpretation Comments Monocytes # (test code = Monocytes #) 350 200-950 [facility] AreaLsozdpnKAZTNZGXVJ7791-60-25 12:55:00 Test Item Value Reference Range Interpretation Comments Eosinophils # (test code = Eosinophils 72 15-500 #) [facility] AreaJeecvcoBTIYSVKXVX8438-81-89 12:55:00 Test Item Value Reference Range Interpretation Comments Eosinophils # (test code = Eosinophils 72 15-500 #) [facility] AreaTwbwapxQVQORWAJNP6210-47-23 12:55:00 Test Item Value Reference Range Interpretation Comments Basophils # (test code 29 See_Comment [Aut omated message] The = Basophils #) system which generated this result tra nsmitted reference range : <=200. The reference r brice was not used to int erpret this result as normal/abnormal . [facility] AreaFgngymbLTCYELVFFM4046-31-09 12:55:00 Test Item Value Reference Range Interpretation Comments Segs (test code = Segs) 65.4 [place] 951631-10-07 12:55:00 Test Item Value Reference Range Interpretation Comments Lymphocytes (test code = Lymphocytes) 25.2 [place] 951631-10-07 12:55:00 Test Item Value Reference Range Interpretation Comments Monocytes (test code = Monocytes) 7.3 [place] 951631-10-07 12:55:00 Test Item Value Reference Range Interpretation Comments Eosinophils (test code = Eosinophils) 1.5 [place] 951631-10-07 12:55:00 Test Item Value Reference Range Interpretation Comments Basophils (test code = Basophils) 0.6 [place] 951631-10-07 12:55:00 Test Item Value Reference Range Interpretation Comments Sed Rate (test code = Sed Rate) 22 [facility] CenterCnierrsEEHEHRNHTL7544-95-15 12:55:00 Test Item Value Reference Range Interpretation Comments C-REACTIVE PROTEIN (test code = 2.9 C-REACTIVE PROTEIN) [place] 951631-10-07 12:55:00 Test Item Value Reference Range Interpretation Comments Basophils # (test code 29 See_Comment [Aut omated message] The = Basophils #) system which generated this result tra nsmitted reference range : <=200. The reference r brice was not used to int erpret this result as normal/abnormal . [facility]2021-10-07 12:55:00 Test Item Value Reference Range Interpretation Comments Vitamin B12 Lvl (test code = Vitamin [phone] B12 Lvl) [facility]2021-10-07 12:55:00 Test Item Value Reference Range Interpretation Comments Glucose Lvl (test code = Glucose Lvl) 151 65-99 [facility]2021-10-07 12:55:00 Test Item Value Reference Range Interpretation Comments BUN (test code = BUN) 17 7-25 [place] 951631-10-07 12:55:00 Test Item Value Reference Range Interpretation Comments Segs (test code = Segs) 65.4 [facility]2021-10-07 12:55:00 Test Item Value Reference Range Interpretation Comments Creatinine Lvl (test code = Creatinine 0.49 0.50-1.05 Lvl) [facility]2021-10-07 12:55:00 Test Item Value Reference Range Interpretation Comments eGFR NON-AFR. [place]UNDIAN (test code = 107 eGFR NON-AFR. BURUNDIAN) [facility]2021-10-07 12:55:00 Test Item Value Reference Range Interpretation Comments eGFR (test code = eGFR 124 ) [place] 749461-10-07 12:55:00 Test Item Value Reference Range Interpretation Comments B/C Ratio (test code = B/C Ratio) 35 6-22 [place] 749461-10-07 12:55:00 Test Item Value Reference Range Interpretation Comments Sodium Lvl (test code = Sodium Lvl) 140 135-146 [place] 749461-10-07 12:55:00 Test Item Value Reference Range Interpretation Comments Potassium Lvl (test code = Potassium 4.0 3.5-5.3 Lvl) [place] 749461-10-07 12:55:00 Test Item Value Reference Range Interpretation Comments Chloride Lvl (test code = Chloride Lvl) 105 98-110 [place] 749461-10-07 12:55:00 Test Item Value Reference Range Interpretation Comments CO2 (test code = CO2) 29 20-32 [place] 749461-10-07 12:55:00 Test Item Value Reference Range Interpretation Comments Calcium Lvl (test code = Calcium Lvl) 8.7 8.6-10.4 [place] 749461-10-07 12:55:00 Test Item Value Reference Range Interpretation Comments Total Protein (test code = Total 6.8 6.1-8.1 Protein) [facility] AreaNnrgbqbMBLLHIJCIJ7305-54-33 12:55:00 Test Item Value Reference Range Interpretation Comments Lymphocytes (test code = Lymphocytes) 25.2 [place] 749461-10-07 12:55:00 Test Item Value Reference Range Interpretation Comments Albumin Lvl (test code = Albumin Lvl) 3.7 3.6-5.1 [place] 749461-10-07 12:55:00 Test Item Value Reference Range Interpretation Comments Globulin (test code = Globulin) 3.1 1.9-3.7 [place] 749461-10-07 12:55:00 Test Item Value Reference Range Interpretation Comments A/G Ratio (test code = A/G Ratio) 1.2 1.0-2.5 [place] 749461-10-07 12:55:00 Test Item Value Reference Range Interpretation Comments Bili Total (test code = Bili Total) 0.6 0.2-1.2 [facility]2021-10-07 12:55:00 Test Item Value Reference Range Interpretation Comments Alk Phos (test code = Alk Phos) 59 37-153 [place] 749461-10-07 12:55:00 Test Item Value Reference Range Interpretation Comments ASPARTATE TRANSAMINASE (test code = 18 10-35 ASPARTATE TRANSAMINASE) [place] 749461-10-07 12:55:00 Test Item Value Reference Range Interpretation Comments ALANINE AMINOTRANSFERASE (test code = 23 6-29 ALANINE AMINOTRANSFERASE) [place] 951631-10-07 12:55:00 Test Item Value Reference Range Interpretation Comments WBC X 10x3 (test code = WBC X 10x3) 4.8 3.8-10.8 [place] 951631-10-07 12:55:00 Test Item Value Reference Range Interpretation Comments RBC X 10x6 (test code = RBC X 10x6) 4.50 3.80-5.10 [place] 951631-10-07 12:55:00 Test Item Value Reference Range Interpretation Comments Hgb (test code = Hgb) 12.1 11.7-15.5 [place] 951631-10-07 12:55:00 Test Item Value Reference Range Interpretation Comments Monocytes (test code = Monocytes) 7.3 [place] 951631-10-07 12:55:00 Test Item Value Reference Range Interpretation Comments Hct (test code = Hct) 37.8 35.0-45.0 [place] 951631-10-07 12:55:00 Test Item Value Reference Range Interpretation Comments MCV (test code = MCV) 84.0 80.0-100.0 [place] 951631-10-07 12:55:00 Test Item Value Reference Range Interpretation Comments MCH (test code = MCH) 26.9 pg 27.0-33.0 [place] 951631-10-07 12:55:00 Test Item Value Reference Range Interpretation Comments MCHC (test code = MCHC) 32.0 32.0-36.0 [place] 951631-10-07 12:55:00 Test Item Value Reference Range Interpretation Comments RDW (test code = RDW) 14.0 11.0-15.0 [place] 951631-10-07 12:55:00 Test Item Value Reference Range Interpretation Comments Platelet (test code = Platelet) 151 140-400 [place] 951631-10-07 12:55:00 Test Item Value Reference Range Interpretation Comments MPV (test code = MPV) 12.1 7.5-12.5 [place] 951631-10-07 12:55:00 Test Item Value Reference Range Interpretation Comments Neutrophils # (test code = Neutrophils 3139 5452-1872 #) [facility] AreaVcfwbeeXOHOUGBILU1686-84-27 12:55:00 Test Item Value Reference Range Interpretation Comments Lymphocytes # (test code = Lymphocytes [phone] #) [facility] AreaBhlahfbRUOOTTHAKF9986-81-11 12:55:00 Test Item Value Reference Range Interpretation Comments Monocytes # (test code = Monocytes #) 350 200-950 [facility] AreaPraodwzQBKLOUCLWX5619-70-41 12:55:00 Test Item Value Reference Range Interpretation Comments Eosinophils (test code = Eosinophils) 1.5 [facility] AreaXbxujvcUSFCEUKQSY7495-15-37 12:55:00 Test Item Value Reference Range Interpretation Comments Eosinophils # (test code = Eosinophils 72 15-500 #) [facility] AreaVzwzinzRFCSFWCAHH5022-50-05 12:55:00 Test Item Value Reference Range Interpretation Comments Basophils # (test code 29 See_Comment [Aut omated message] The = Basophils #) system which generated this result tra nsmitted reference range : <=200. The reference r brice was not used to int erpret this result as normal/abnormal . [facility] AreaJkyfbeyJVHSZBEFPI9873-78-64 12:55:00 Test Item Value Reference Range Interpretation Comments Segs (test code = Segs) 65.4 [place] 951631-10-07 12:55:00 Test Item Value Reference Range Interpretation Comments Lymphocytes (test code = Lymphocytes) 25.2 [place] 951631-10-07 12:55:00 Test Item Value Reference Range Interpretation Comments Monocytes (test code = Monocytes) 7.3 [facility] AreaLladlybITNOYHPIAG3156-57-99 12:55:00 Test Item Value Reference Range Interpretation Comments Eosinophils (test code = Eosinophils) 1.5 [facility] AreaSivlikeYCIUJYZDKH6060-88-67 12:55:00 Test Item Value Reference Range Interpretation Comments Basophils (test code = Basophils) 0.6 [place] 951631-10-07 12:55:00 Test Item Value Reference Range Interpretation Comments Sed Rate (test code = Sed Rate) 22 [facility] CenterOobpfduYVEPOSYMFI6457-60-32 12:55:00 Test Item Value Reference Range Interpretation Comments C-REACTIVE PROTEIN (test code = 2.9 C-REACTIVE PROTEIN) [place] 951631-10-07 12:55:00 Test Item Value Reference Range Interpretation Comments Basophils (test code = Basophils) 0.6 [facility]2021-10-07 12:55:00 Test Item Value Reference Range Interpretation Comments Vitamin B12 Lvl (test code = Vitamin [phone] B12 Lvl) [facility]2021-10-07 12:55:00 Test Item Value Reference Range Interpretation Comments Glucose Lvl (test code = Glucose Lvl) 151 65-99 [facility]2021-10-07 12:55:00 Test Item Value Reference Range Interpretation Comments BUN (test code = BUN) 17 7-25 [place] 951631-10-07 12:55:00 Test Item Value Reference Range Interpretation Comments Sed Rate (test code = Sed Rate) 22 [facility]2021-10-07 12:55:00 Test Item Value Reference Range Interpretation Comments Creatinine Lvl (test code = Creatinine 0.49 0.50-1.05 Lvl) [facility]2021-10-07 12:55:00 Test Item Value Reference Range Interpretation Comments eGFR NON-AFR. BURUNDIAN (test code = 107 eGFR NON-AFR. BURUNDIAN) [facility]2021-10-07 12:55:00 Test Item Value Reference Range Interpretation Comments eGFR (test code = eGFR 124 ) [facility]2021-10-07 12:55:00 Test Item Value Reference Range Interpretation Comments B/C Ratio (test code = B/C Ratio) 35 6-22 [place] 749461-10-07 12:55:00 Test Item Value Reference Range Interpretation Comments Sodium Lvl (test code = Sodium Lvl) 140 135-146 [place] 749461-10-07 12:55:00 Test Item Value Reference Range Interpretation Comments Potassium Lvl (test code = Potassium 4.0 3.5-5.3 Lvl) [facility]2021-10-07 12:55:00 Test Item Value Reference Range Interpretation Comments Chloride Lvl (test code = Chloride Lvl) 105 98-110 [facility]2021-10-07 12:55:00 Test Item Value Reference Range Interpretation Comments CO2 (test code = CO2) 29 20-32 [place] 749461-10-07 12:55:00 Test Item Value Reference Range Interpretation Comments Calcium Lvl (test code = Calcium Lvl) 8.7 8.6-10.4 [place] 749461-10-07 12:55:00 Test Item Value Reference Range Interpretation Comments Total Protein (test code = Total 6.8 6.1-8.1 Protein) [facility] 12:55:00 Test Item Value Reference Range Interpretation Comments C-REACTIVE PROTEIN (test code = 2.9 C-REACTIVE PROTEIN) [facility]2021-10-07 12:55:00 Test Item Value Reference Range Interpretation Comments Albumin Lvl (test code = Albumin Lvl) 3.7 3.6-5.1 [facility]2021-10-07 12:55:00 Test Item Value Reference Range Interpretation Comments Globulin (test code = Globulin) 3.1 1.9-3.7 [place] 749461-10-07 12:55:00 Test Item Value Reference Range Interpretation Comments A/G Ratio (test code = A/G Ratio) 1.2 1.0-2.5 [facility]2021-10-07 12:55:00 Test Item Value Reference Range Interpretation Comments Bili Total (test code = Bili Total) 0.6 0.2-1.2 [place] 749461-10-07 12:55:00 Test Item Value Reference Range Interpretation Comments Alk Phos (test code = Alk Phos) 59 37-153 [facility]2021-10-07 12:55:00 Test Item Value Reference Range Interpretation Comments ASPARTATE TRANSAMINASE (test code = 18 10-35 ASPARTATE TRANSAMINASE) [facility]2021-10-07 12:55:00 Test Item Value Reference Range Interpretation Comments ALANINE AMINOTRANSFERASE (test code = 23 6-29 ALANINE AMINOTRANSFERASE) [facility]us[facility]ikKRZXVJAXQG6135-29-75 12:55:00 Test Item Value Reference Range Interpretation Comments WBC X 10x3 (test code = WBC X 10x3) 4.8 3.8-10.8 [facility] AreaVcsinplARLROPIFNR3697-10-85 12:55:00 Test Item Value Reference Range Interpretation Comments RBC X 10x6 (test code = RBC X 10x6) 4.50 3.80-5.10 [facility] AreaRmvzqxeQBOEZNEUNB6646-72-70 12:55:00 Test Item Value Reference Range Interpretation Comments Hgb (test code = Hgb) 12.1 11.7-15.5 [facility] AreaJdvolleSDGGWNZKJD5475-95-56 12:55:00 Test Item Value Reference Range Interpretation Comments Hct (test code = Hct) 37.8 35.0-45.0 [facility] AreaPiamofiSEHFCEYLLC5794-19-57 12:55:00 Test Item Value Reference Range Interpretation Comments MCV (test code = MCV) 84.0 80.0-100.0 [facility] AreaZdfimupFAHHWWYKYD0553-10-23 12:55:00 Test Item Value Reference Range Interpretation Comments MCH (test code = MCH) 26.9 pg 27.0-33.0 [facility] AreaKjrvbmgNRATUCOAFI2314-13-14 12:55:00 Test Item Value Reference Range Interpretation Comments MCHC (test code = MCHC) 32.0 32.0-36.0 [facility] AreaXafjhfmSXGQWYDLOK2844-13-59 12:55:00 Test Item Value Reference Range Interpretation Comments RDW (test code = RDW) 14.0 11.0-15.0 [facility] AreaSzsqhcmCFWMKYNRUV1264-15-33 12:55:00 Test Item Value Reference Range Interpretation Comments Platelet (test code = Platelet) 151 140-400 [facility] AreaQdqyvhfXOAZKKXPDC9419-67-35 12:55:00 Test Item Value Reference Range Interpretation Comments MPV (test code = MPV) 12.1 7.5-12.5 [facility] AreaLkejxqoUXXDBDSHHA1913-93-89 12:55:00 Test Item Value Reference Range Interpretation Comments Neutrophils # (test code = Neutrophils 3139 9632-0362 #) [facility] AreaKemtgmzQUVAYFFYXL8871-30-15 12:55:00 Test Item Value Reference Range Interpretation Comments Lymphocytes # (test code = Lymphocytes 5396 874-1727 #) [facility] AreaQqannukZHNOCRQZUX3095-91-37 12:55:00 Test Item Value Reference Range Interpretation Comments Monocytes # (test code = Monocytes #) 350 200-950 [place] 951631-10-07 12:55:00 Test Item Value Reference Range Interpretation Comments Eosinophils # (test code = Eosinophils 72 15-500 #) [facility] AreaDdcnlxjQPYPDWXUMM5895-18-33 12:55:00 Test Item Value Reference Range Interpretation Comments Basophils # (test code 29 See_Comment [Aut omated message] The = Basophils #) system which generated this result tra nsmitted reference range : <=200. The reference r brice was not used to int erpret this result as normal/abnormal . [place] 951631-10-07 12:55:00 Test Item Value Reference Range Interpretation Comments Segs (test code = Segs) 65.4 [place] 951631-10-07 12:55:00 Test Item Value Reference Range Interpretation Comments Lymphocytes (test code = Lymphocytes) 25.2 [place] 951631-10-07 12:55:00 Test Item Value Reference Range Interpretation Comments Monocytes (test code = Monocytes) 7.3 [place] 951631-10-07 12:55:00 Test Item Value Reference Range Interpretation Comments Eosinophils (test code = Eosinophils) 1.5 [place] 951631-10-07 12:55:00 Test Item Value Reference Range Interpretation Comments Basophils (test code = Basophils) 0.6 [place] 951631-10-07 12:55:00 Test Item Value Reference Range Interpretation Comments Sed Rate (test code = Sed Rate) 22 [place] 598351-10-07 12:55:00 Test Item Value Reference Range Interpretation Comments C-REACTIVE PROTEIN (test code = 2.9 C-REACTIVE PROTEIN) [facility]2021-10-07 12:55:00 Test Item Value Reference Range Interpretation Comments Vitamin B12 Lvl (test code = Vitamin [phone] B12 Lvl) [facility]2021-10-07 12:55:00 Test Item Value Reference Range Interpretation Comments Glucose Lvl (test code = Glucose Lvl) 151 65-99 [facility]2021-10-07 12:55:00 Test Item Value Reference Range Interpretation Comments BUN (test code = BUN) 17 7-25 [place] 749461-10-07 12:55:00 Test Item Value Reference Range Interpretation Comments Creatinine Lvl (test code = Creatinine 0.49 0.50-1.05 Lvl) [place] 749461-10-07 12:55:00 Test Item Value Reference Range Interpretation Comments eGFR NON-AFR. BURUNDIAN (test code = 107 eGFR NON-AFR. BURUNDIAN) [place] 749461-10-07 12:55:00 Test Item Value Reference Range Interpretation Comments eGFR (test code = eGFR 124 ) [place] 749461-10-07 12:55:00 Test Item Value Reference Range Interpretation Comments B/C Ratio (test code = B/C Ratio) 35 6-22 [place] 749461-10-07 12:55:00 Test Item Value Reference Range Interpretation Comments Sodium Lvl (test code = Sodium Lvl) 140 135-146 [place] 749461-10-07 12:55:00 Test Item Value Reference Range Interpretation Comments Potassium Lvl (test code = Potassium 4.0 3.5-5.3 Lvl) [place] 749461-10-07 12:55:00 Test Item Value Reference Range Interpretation Comments Chloride Lvl (test code = Chloride Lvl) 105 98-110 [place] 749461-10-07 12:55:00 Test Item Value Reference Range Interpretation Comments CO2 (test code = CO2) 29 20-32 [place] 749461-10-07 12:55:00 Test Item Value Reference Range Interpretation Comments Calcium Lvl (test code = Calcium Lvl) 8.7 8.6-10.4 [place] 749461-10-07 12:55:00 Test Item Value Reference Range Interpretation Comments Total Protein (test code = Total 6.8 6.1-8.1 Protein) [place] 749461-10-07 12:55:00 Test Item Value Reference Range Interpretation Comments Albumin Lvl (test code = Albumin Lvl) 3.7 3.6-5.1 [place] 749461-10-07 12:55:00 Test Item Value Reference Range Interpretation Comments Globulin (test code = Globulin) 3.1 1.9-3.7 [place] 749461-10-07 12:55:00 Test Item Value Reference Range Interpretation Comments A/G Ratio (test code = A/G Ratio) 1.2 1.0-2.5 [place] 749461-10-07 12:55:00 Test Item Value Reference Range Interpretation Comments Bili Total (test code = Bili Total) 0.6 0.2-1.2 [place] 749461-10-07 12:55:00 Test Item Value Reference Range Interpretation Comments Alk Phos (test code = Alk Phos) 59 37-153 [place] 749461-10-07 12:55:00 Test Item Value Reference Range Interpretation Comments ASPARTATE TRANSAMINASE (test code = 18 10-35 ASPARTATE TRANSAMINASE) [place] 749461-10-07 12:55:00 Test Item Value Reference Range Interpretation Comments ALANINE AMINOTRANSFERASE (test code = 23 6-29 ALANINE AMINOTRANSFERASE) [place] 951631-10-07 12:55:00 Test Item Value Reference Range Interpretation Comments WBC X 10x3 (test code = WBC X 10x3) 4.8 3.8-10.8 [place] 951631-10-07 12:55:00 Test Item Value Reference Range Interpretation Comments RBC X 10x6 (test code = RBC X 10x6) 4.50 3.80-5.10 [place] 951631-10-07 12:55:00 Test Item Value Reference Range Interpretation Comments Hgb (test code = Hgb) 12.1 11.7-15.5 [place] 951631-10-07 12:55:00 Test Item Value Reference Range Interpretation Comments Hct (test code = Hct) 37.8 35.0-45.0 [place] 951631-10-07 12:55:00 Test Item Value Reference Range Interpretation Comments MCV (test code = MCV) 84.0 80.0-100.0 [place] 951631-10-07 12:55:00 Test Item Value Reference Range Interpretation Comments MCH (test code = MCH) 26.9 pg 27.0-33.0 [place] [address]-10-07 12:55:00 Test Item Value Reference Range Interpretation Comments MCHC (test code = MCHC) 32.0 32.0-36.0 [place] [address]-10-07 12:55:00 Test Item Value Reference Range Interpretation Comments RDW (test code = RDW) 14.0 11.0-15.0 [place] 951631-10-07 12:55:00 Test Item Value Reference Range Interpretation Comments Platelet (test code = Platelet) 151 140-400 [facility] AreaKmuimytGFOZEWHIDF0087-05-73 12:55:00 Test Item Value Reference Range Interpretation Comments MPV (test code = MPV) 12.1 7.5-12.5 [facility] AreaGrugppuUHJMJJVJLP7082-10-09 12:55:00 Test Item Value Reference Range Interpretation Comments Neutrophils # (test code = Neutrophils 3139 0247-0249 #) [facility] AreaDeofjstNKHRSIYDYI3020-72-24 12:55:00 Test Item Value Reference Range Interpretation Comments Lymphocytes # (test code = Lymphocytes 2238 883-3386 #) [facility] AreaCogcirtUYGICAVVKW8467-02-64 12:55:00 Test Item Value Reference Range Interpretation Comments Monocytes # (test code = Monocytes #) 350 200-950 [facility] AreaOzunzojEDIHKUTPRO0656-94-38 12:55:00 Test Item Value Reference Range Interpretation Comments Eosinophils # (test code = Eosinophils 72 15-500 #) [facility] AreaPxgeijlCYNYZVWIBS8729-76-95 12:55:00 Test Item Value Reference Range Interpretation Comments Basophils # (test code 29 See_Comment [Aut omated message] The = Basophils #) system which generated this result tra nsmitted reference range : <=200. The reference r brice was not used to int erpret this result as normal/abnormal . [facility] AreaFobgvvdSVEOOQZXRG1146-12-77 12:55:00 Test Item Value Reference Range Interpretation Comments Segs (test code = Segs) 65.4 [facility] AreaScmhvdkGQGPJZYWJR9799-81-72 12:55:00 Test Item Value Reference Range Interpretation Comments Lymphocytes (test code = Lymphocytes) 25.2 [facility] AreaEjsyxfvPKONAQHVZT1959-99-39 12:55:00 Test Item Value Reference Range Interpretation Comments Monocytes (test code = Monocytes) 7.3 [facility] AreaXkdtyslPIKLEKPKQD0122-57-83 12:55:00 Test Item Value Reference Range Interpretation Comments Eosinophils (test code = Eosinophils) 1.5 [facility] AreaHkkqzsoEIVDTUSCSC1905-09-38 12:55:00 Test Item Value Reference Range Interpretation Comments Basophils (test code = Basophils) 0.6 [facility] AreaUokpfpuBZWDHQKSSL1531-77-80 12:55:00 Test Item Value Reference Range Interpretation Comments Sed Rate (test code = Sed Rate) 22 [facility]unewzmOHLXIUPSJN8235-20-81 12:55:00 Test Item Value Reference Range Interpretation Comments C-REACTIVE PROTEIN (test code = 2.9 C-REACTIVE PROTEIN) [facility]2021-10-07 12:55:00 Test Item Value Reference Range Interpretation Comments Vitamin B12 Lvl (test code = Vitamin [phone] B12 Lvl) [place] 749461-10-07 12:55:00 Test Item Value Reference Range Interpretation Comments Glucose Lvl (test code = Glucose Lvl) 151 65-99 [place] 749461-10-07 12:55:00 Test Item Value Reference Range Interpretation Comments BUN (test code = BUN) 17 7-25 [place] 749461-10-07 12:55:00 Test Item Value Reference Range Interpretation Comments Creatinine Lvl (test code = Creatinine 0.49 0.50-1.05 Lvl) [facility]2021-10-07 12:55:00 Test Item Value Reference Range Interpretation Comments eGFR NON-AFR. BURUNDIAN (test code = 107 eGFR NON-AFR. BURUNDIAN) [place] 749461-10-07 12:55:00 Test Item Value Reference Range Interpretation Comments eGFR (test code = eGFR 124 ) [facility]2021-10-07 12:55:00 Test Item Value Reference Range Interpretation Comments B/C Ratio (test code = B/C Ratio) 35 6-22 [facility]2021-10-07 12:55:00 Test Item Value Reference Range Interpretation Comments Sodium Lvl (test code = Sodium Lvl) 140 135-146 [place] 749461-10-07 12:55:00 Test Item Value Reference Range Interpretation Comments Potassium Lvl (test code = Potassium 4.0 3.5-5.3 Lvl) [place] 749461-10-07 12:55:00 Test Item Value Reference Range Interpretation Comments Chloride Lvl (test code = Chloride Lvl) 105 98-110 [place] 749461-10-07 12:55:00 Test Item Value Reference Range Interpretation Comments CO2 (test code = CO2) 29 20-32 [place] 749461-10-07 12:55:00 Test Item Value Reference Range Interpretation Comments Calcium Lvl (test code = Calcium Lvl) 8.7 8.6-10.4 [place] 25793-10-07 12:55:00 Test Item Value Reference Range Interpretation Comments Total Protein (test code = Total 6.8 6.1-8.1 Protein) [place] 749461-10-07 12:55:00 Test Item Value Reference Range Interpretation Comments Albumin Lvl (test code = Albumin Lvl) 3.7 3.6-5.1 [place] 749461-10-07 12:55:00 Test Item Value Reference Range Interpretation Comments Globulin (test code = Globulin) 3.1 1.9-3.7 [place] 749461-10-07 12:55:00 Test Item Value Reference Range Interpretation Comments A/G Ratio (test code = A/G Ratio) 1.2 1.0-2.5 [place] 749461-10-07 12:55:00 Test Item Value Reference Range Interpretation Comments Bili Total (test code = Bili Total) 0.6 0.2-1.2 [place] 749461-10-07 12:55:00 Test Item Value Reference Range Interpretation Comments Alk Phos (test code = Alk Phos) 59 37-153 [place] 749461-10-07 12:55:00 Test Item Value Reference Range Interpretation Comments ASPARTATE TRANSAMINASE (test code = 18 10-35 ASPARTATE TRANSAMINASE) [place] 749461-10-07 12:55:00 Test Item Value Reference Range Interpretation Comments ALANINE AMINOTRANSFERASE (test code = 23 6-29 ALANINE AMINOTRANSFERASE) [place] 951631-10-07 12:55:00 Test Item Value Reference Range Interpretation Comments WBC X 10x3 (test code = WBC X 10x3) 4.8 3.8-10.8 [place] 951631-10-07 12:55:00 Test Item Value Reference Range Interpretation Comments RBC X 10x6 (test code = RBC X 10x6) 4.50 3.80-5.10 [place] 951631-10-07 12:55:00 Test Item Value Reference Range Interpretation Comments Hgb (test code = Hgb) 12.1 11.7-15.5 [place] [address]-10-07 12:55:00 Test Item Value Reference Range Interpretation Comments Hct (test code = Hct) 37.8 35.0-45.0 [place] [address]-10-07 12:55:00 Test Item Value Reference Range Interpretation Comments MCV (test code = MCV) 84.0 80.0-100.0 [facility] AreaMabfbxzXMPUNONSRA3033-40-75 12:55:00 Test Item Value Reference Range Interpretation Comments MCH (test code = MCH) 26.9 pg 27.0-33.0 [facility] AreaTmolppmJTQUVIQYRZ4967-59-50 12:55:00 Test Item Value Reference Range Interpretation Comments MCHC (test code = MCHC) 32.0 32.0-36.0 [facility] AreaZeagjipSUCDOOZYBU1816-32-96 12:55:00 Test Item Value Reference Range Interpretation Comments RDW (test code = RDW) 14.0 11.0-15.0 [place] 951631-10-07 12:55:00 Test Item Value Reference Range Interpretation Comments Platelet (test code = Platelet) 151 140-400 [facility] AreaZorcdejQWYDZYPLLU3441-06-65 12:55:00 Test Item Value Reference Range Interpretation Comments MPV (test code = MPV) 12.1 7.5-12.5 [facility] AreaSjgizxxWOIIUZFMCO5171-77-65 12:55:00 Test Item Value Reference Range Interpretation Comments Neutrophils # (test code = Neutrophils 3139 7373-4401 #) [facility] AreaMcltipaQPKVHDIVUU5804-14-54 12:55:00 Test Item Value Reference Range Interpretation Comments Lymphocytes # (test code = Lymphocytes 8253 686-0606 #) [facility] AreaOgpkhctUHFUIRDHZI8832-15-88 12:55:00 Test Item Value Reference Range Interpretation Comments Monocytes # (test code = Monocytes #) 350 200-950 [facility] AreaHajsptiCGIMEKGPWD5984-33-54 12:55:00 Test Item Value Reference Range Interpretation Comments Eosinophils # (test code = Eosinophils 72 15-500 #) [facility] AreaPlziiyrYKBNCEKNEP6174-31-48 12:55:00 Test Item Value Reference Range Interpretation Comments Basophils # (test code 29 See_Comment [Aut omated message] The = Basophils #) system which generated this result tra nsmitted reference range : <=200. The reference r brice was not used to int erpret this result as normal/abnormal . [facility] AreaGihrsawASFBFOSCTL8297-17-99 12:55:00 Test Item Value Reference Range Interpretation Comments Segs (test code = Segs) 65.4 [place] 951631-10-07 12:55:00 Test Item Value Reference Range Interpretation Comments Lymphocytes (test code = Lymphocytes) 25.2 [place] 951631-10-07 12:55:00 Test Item Value Reference Range Interpretation Comments Monocytes (test code = Monocytes) 7.3 [place] [address]-10-07 12:55:00 Test Item Value Reference Range Interpretation Comments Eosinophils (test code = Eosinophils) 1.5 [place] [address]-10-07 12:55:00 Test Item Value Reference Range Interpretation Comments Basophils (test code = Basophils) 0.6 [place] 09[address]-10-07 12:55:00 Test Item Value Reference Range Interpretation Comments Sed Rate (test code = Sed Rate) 22 [place] 598351-10-07 12:55:00 Test Item Value Reference Range Interpretation Comments C-REACTIVE PROTEIN (test code = 2.9 C-REACTIVE PROTEIN) [facility]2021-10-07 12:55:00 Test Item Value Reference Range Interpretation Comments Vitamin B12 Lvl (test code = Vitamin [phone] B12 Lvl) [facility]2021-10-07 12:55:00 Test Item Value Reference Range Interpretation Comments Glucose Lvl (test code = Glucose Lvl) 151 65-99 [facility]2021-10-07 12:55:00 Test Item Value Reference Range Interpretation Comments BUN (test code = BUN) 17 7-25 [place] 749461-10-07 12:55:00 Test Item Value Reference Range Interpretation Comments Creatinine Lvl (test code = Creatinine 0.49 0.50-1.05 Lvl) [facility]2021-10-07 12:55:00 Test Item Value Reference Range Interpretation Comments eGFR NON-AFR. BURUNDIAN (test code = 107 eGFR NON-AFR. BURUNDIAN) [facility]2021-10-07 12:55:00 Test Item Value Reference Range Interpretation Comments eGFR (test code = eGFR 124 ) [place] 749461-10-07 12:55:00 Test Item Value Reference Range Interpretation Comments B/C Ratio (test code = B/C Ratio) 35 6-22 [place] 749461-10-07 12:55:00 Test Item Value Reference Range Interpretation Comments Sodium Lvl (test code = Sodium Lvl) 140 135-146 [place] 749461-10-07 12:55:00 Test Item Value Reference Range Interpretation Comments Potassium Lvl (test code = Potassium 4.0 3.5-5.3 Lvl) [place] 749461-10-07 12:55:00 Test Item Value Reference Range Interpretation Comments Chloride Lvl (test code = Chloride Lvl) 105 98-110 [place] 749461-10-07 12:55:00 Test Item Value Reference Range Interpretation Comments CO2 (test code = CO2) 29 20-32 [place] 749461-10-07 12:55:00 Test Item Value Reference Range Interpretation Comments Calcium Lvl (test code = Calcium Lvl) 8.7 8.6-10.4 [place] 749461-10-07 12:55:00 Test Item Value Reference Range Interpretation Comments Total Protein (test code = Total 6.8 6.1-8.1 Protein) [place] 749461-10-07 12:55:00 Test Item Value Reference Range Interpretation Comments Albumin Lvl (test code = Albumin Lvl) 3.7 3.6-5.1 [place] 749461-10-07 12:55:00 Test Item Value Reference Range Interpretation Comments Globulin (test code = Globulin) 3.1 1.9-3.7 [place] 749461-10-07 12:55:00 Test Item Value Reference Range Interpretation Comments A/G Ratio (test code = A/G Ratio) 1.2 1.0-2.5 [place] 749461-10-07 12:55:00 Test Item Value Reference Range Interpretation Comments Bili Total (test code = Bili Total) 0.6 0.2-1.2 [place] 749461-10-07 12:55:00 Test Item Value Reference Range Interpretation Comments Alk Phos (test code = Alk Phos) 59 37-153 [facility]2021-10-07 12:55:00 Test Item Value Reference Range Interpretation Comments ASPARTATE TRANSAMINASE (test code = 18 10-35 ASPARTATE TRANSAMINASE) [place] 749461-10-07 12:55:00 Test Item Value Reference Range Interpretation Comments ALANINE AMINOTRANSFERASE (test code = 23 6-29 ALANINE AMINOTRANSFERASE) [facility] AreaDzkcdfzWZQJRLLRNI8333-31-76 12:55:00 Test Item Value Reference Range Interpretation Comments WBC X 10x3 (test code = WBC X 10x3) 4.8 3.8-10.8 [place] 951631-10-07 12:55:00 Test Item Value Reference Range Interpretation Comments RBC X 10x6 (test code = RBC X 10x6) 4.50 3.80-5.10 [facility] AreaAhjkergKKRHQHTSNC5321-41-09 12:55:00 Test Item Value Reference Range Interpretation Comments Hgb (test code = Hgb) 12.1 11.7-15.5 [facility] AreaRslpgniVQKABJYLGR7841-36-72 12:55:00 Test Item Value Reference Range Interpretation Comments Hct (test code = Hct) 37.8 35.0-45.0 [facility] AreaTsenbjzCXTWZOGGND7547-87-69 12:55:00 Test Item Value Reference Range Interpretation Comments MCV (test code = MCV) 84.0 80.0-100.0 [place] 951631-10-07 12:55:00 Test Item Value Reference Range Interpretation Comments MCH (test code = MCH) 26.9 pg 27.0-33.0 [facility] AreaXhvghvsLNWCIJNKDW6175-21-34 12:55:00 Test Item Value Reference Range Interpretation Comments MCHC (test code = MCHC) 32.0 32.0-36.0 [facility] AreaVxggxpfDDIGEIPSTE4693-44-11 12:55:00 Test Item Value Reference Range Interpretation Comments RDW (test code = RDW) 14.0 11.0-15.0 [facility] AreaNscxrmbAXHTSFVLIO5532-25-61 12:55:00 Test Item Value Reference Range Interpretation Comments Platelet (test code = Platelet) 151 140-400 [facility] AreaAdiyqtwAUBUCCEDXK7138-32-72 12:55:00 Test Item Value Reference Range Interpretation Comments MPV (test code = MPV) 12.1 7.5-12.5 [place] 951631-10-07 12:55:00 Test Item Value Reference Range Interpretation Comments Neutrophils # (test code = Neutrophils 8078 5323-6394 #) [facility] AreaOnwpigmWQFPISUWYO5163-13-91 12:55:00 Test Item Value Reference Range Interpretation Comments Lymphocytes # (test code = Lymphocytes 8809 125-5264 #) [facility] AreaVvosqkwWYQPFDZQRK7331-77-99 12:55:00 Test Item Value Reference Range Interpretation Comments Monocytes # (test code = Monocytes #) 350 200-950 [facility] AreaLarddlxWCFTTUAUJI4751-97-19 12:55:00 Test Item Value Reference Range Interpretation Comments Eosinophils # (test code = Eosinophils 72 15-500 #) [facility] AreaFcczbxnVOUQGLMLQX6038-29-14 12:55:00 Test Item Value Reference Range Interpretation Comments Basophils # (test code 29 See_Comment [Aut omated message] The = Basophils #) system which generated this result tra nsmitted reference range : <=200. The reference r brice was not used to int erpret this result as normal/abnormal . [facility] AreaNyvbtuhSCLTQNAQNJ9047-01-27 12:55:00 Test Item Value Reference Range Interpretation Comments Segs (test code = Segs) 65.4 [facility] AreaIqvxxtbSTXJISUMDO7854-51-53 12:55:00 Test Item Value Reference Range Interpretation Comments Lymphocytes (test code = Lymphocytes) 25.2 [facility] AreaTbgcvjzQDEGDRAUFV0738-66-40 12:55:00 Test Item Value Reference Range Interpretation Comments Monocytes (test code = Monocytes) 7.3 [facility] AreaIftxpkxODVTYCMAKP8593-46-43 12:55:00 Test Item Value Reference Range Interpretation Comments Eosinophils (test code = Eosinophils) 1.5 [facility] AreaZvcfggcRJKNXUYFFM0407-52-96 12:55:00 Test Item Value Reference Range Interpretation Comments Basophils (test code = Basophils) 0.6 [place] 951631-10-07 12:55:00 Test Item Value Reference Range Interpretation Comments Sed Rate (test code = Sed Rate) 22 [facility]Jh[facility]tyXESWBAGGXL4819-81-30 12:55:00 Test Item Value Reference Range Interpretation Comments C-REACTIVE PROTEIN (test code = 2.9 C-REACTIVE PROTEIN) [facility]2021-10-07 12:55:00 Test Item Value Reference Range Interpretation Comments Vitamin B12 Lvl (test code = Vitamin 614 410-2718 B12 Lvl) [facility]2021-10-07 12:55:00 Test Item Value Reference Range Interpretation Comments Glucose Lvl (test code = Glucose Lvl) 151 65-99 [facility]2021-10-07 12:55:00 Test Item Value Reference Range Interpretation Comments BUN (test code = BUN) 17 7-25 [place] 749461-10-07 12:55:00 Test Item Value Reference Range Interpretation Comments Creatinine Lvl (test code = Creatinine 0.49 0.50-1.05 Lvl) [place] 749461-10-07 12:55:00 Test Item Value Reference Range Interpretation Comments eGFR NON-AFR. BURUNDIAN (test code = 107 eGFR NON-AFR. B[place]UNDIAN) [place] 749461-10-07 12:55:00 Test Item Value Reference Range Interpretation Comments eGFR (test code = eGFR 124 ) [place] 749461-10-07 12:55:00 Test Item Value Reference Range Interpretation Comments B/C Ratio (test code = B/C Ratio) 35 6-22 [place] 749461-10-07 12:55:00 Test Item Value Reference Range Interpretation Comments Sodium Lvl (test code = Sodium Lvl) 140 135-146 [place] 749461-10-07 12:55:00 Test Item Value Reference Range Interpretation Comments Potassium Lvl (test code = Potassium 4.0 3.5-5.3 Lvl) [place] 749461-10-07 12:55:00 Test Item Value Reference Range Interpretation Comments Chloride Lvl (test code = Chloride Lvl) 105 98-110 [place] 749461-10-07 12:55:00 Test Item Value Reference Range Interpretation Comments CO2 (test code = CO2) 29 20-32 [place] 749461-10-07 12:55:00 Test Item Value Reference Range Interpretation Comments Calcium Lvl (test code = Calcium Lvl) 8.7 8.6-10.4 [place] 749461-10-07 12:55:00 Test Item Value Reference Range Interpretation Comments Total Protein (test code = Total 6.8 6.1-8.1 Protein) [place] 749461-10-07 12:55:00 Test Item Value Reference Range Interpretation Comments Albumin Lvl (test code = Albumin Lvl) 3.7 3.6-5.1 [place] 749461-10-07 12:55:00 Test Item Value Reference Range Interpretation Comments Globulin (test code = Globulin) 3.1 1.9-3.7 [place] 749461-10-07 12:55:00 Test Item Value Reference Range Interpretation Comments A/G Ratio (test code = A/G Ratio) 1.2 1.0-2.5 [place] 749461-10-07 12:55:00 Test Item Value Reference Range Interpretation Comments Bili Total (test code = Bili Total) 0.6 0.2-1.2 [place] 749461-10-07 12:55:00 Test Item Value Reference Range Interpretation Comments Alk Phos (test code = Alk Phos) 59 37-153 [place] 749461-10-07 12:55:00 Test Item Value Reference Range Interpretation Comments ASPARTATE TRANSAMINASE (test code = 18 10-35 ASPARTATE TRANSAMINASE) [place] [address]-10-07 12:55:00 Test Item Value Reference Range Interpretation Comments ALANINE AMINOTRANSFERASE (test code = 23 6-29 ALANINE AMINOTRANSFERASE) [place] [address]-10-07 12:55:00 Test Item Value Reference Range Interpretation Comments WBC X 10x3 (test code = WBC X 10x3) 4.8 3.8-10.8 [place] [address]-10-07 12:55:00 Test Item Value Reference Range Interpretation Comments RBC X 10x6 (test code = RBC X 10x6) 4.50 3.80-5.10 [place] 951631-10-07 12:55:00 Test Item Value Reference Range Interpretation Comments Hgb (test code = Hgb) 12.1 11.7-15.5 [place] 951631-10-07 12:55:00 Test Item Value Reference Range Interpretation Comments Hct (test code = Hct) 37.8 35.0-45.0 [place] [address]-10-07 12:55:00 Test Item Value Reference Range Interpretation Comments MCV (test code = MCV) 84.0 80.0-100.0 [place] [address]-10-07 12:55:00 Test Item Value Reference Range Interpretation Comments MCH (test code = MCH) 26.9 pg 27.0-33.0 [place] 951631-10-07 12:55:00 Test Item Value Reference Range Interpretation Comments MCHC (test code = MCHC) 32.0 32.0-36.0 [place] 951631-10-07 12:55:00 Test Item Value Reference Range Interpretation Comments RDW (test code = RDW) 14.0 11.0-15.0 [place] 951631-10-07 12:55:00 Test Item Value Reference Range Interpretation Comments Platelet (test code = Platelet) 151 140-400 [facility] AreaWycdcrjGVTWUCJNCW4793-96-63 12:55:00 Test Item Value Reference Range Interpretation Comments MPV (test code = MPV) 12.1 7.5-12.5 [place] 951631-10-07 12:55:00 Test Item Value Reference Range Interpretation Comments Neutrophils # (test code = Neutrophils 3139 4777-4175 #) [facility] AreaDfsxzgdZFJIHGYTFD4236-83-85 12:55:00 Test Item Value Reference Range Interpretation Comments Lymphocytes # (test code = Lymphocytes 7877 473-5234 #) [facility] AreaDgoxtugEOHERKJFQQ5763-23-69 12:55:00 Test Item Value Reference Range Interpretation Comments Monocytes # (test code = Monocytes #) 350 200-950 [place] 951631-10-07 12:55:00 Test Item Value Reference Range Interpretation Comments Eosinophils # (test code = Eosinophils 72 15-500 #) [facility] AreaDdfwmxeFRNDNDASXC5203-11-88 12:55:00 Test Item Value Reference Range Interpretation Comments Basophils # (test code 29 See_Comment [Aut omated message] The = Basophils #) system which generated this result tra nsmitted reference range : <=200. The reference r brice was not used to int erpret this result as normal/abnormal . [facility] AreaSxcmpxjNCMDYUQFHF5168-17-76 12:55:00 Test Item Value Reference Range Interpretation Comments Segs (test code = Segs) 65.4 [place] 951631-10-07 12:55:00 Test Item Value Reference Range Interpretation Comments Lymphocytes (test code = Lymphocytes) 25.2 [place] 951631-10-07 12:55:00 Test Item Value Reference Range Interpretation Comments Monocytes (test code = Monocytes) 7.3 [place] 951631-10-07 12:55:00 Test Item Value Reference Range Interpretation Comments Eosinophils (test code = Eosinophils) 1.5 [facility] AreaMqkjczlYMXHRRRAAS4705-16-08 12:55:00 Test Item Value Reference Range Interpretation Comments Basophils (test code = Basophils) 0.6 [place] 951631-10-07 12:55:00 Test Item Value Reference Range Interpretation Comments Sed Rate (test code = Sed Rate) 22 [facility]JFWWPRTPK6855[facility]-45 12:55:00 Test Item Value Reference Range Interpretation Comments C-REACTIVE PROTEIN (test code = 2.9 C-REACTIVE PROTEIN) [facility]2021-10-07 12:55:00 Test Item Value Reference Range Interpretation Comments Vitamin B12 Lvl (test code = Vitamin 611 137-4913 B12 Lvl) [facility]2021-10-07 12:55:00 [...] Value Reference Range Interpretation Comments eGFR NON-AFR. [place]UNDIAN (test code = 107 eGFR NON-AFR. BURUNDIAN) [facility]2021-10-07 12:55:00 Test Item Value Reference Range Interpretation Comments eGFR (test code = eGFR 124 ) [facility]2021-10-07 12:55:00 Test Item Value Reference Range Interpretation Comments B/C Ratio (test code = B/C Ratio) 35 6-22 [facility]2021-10-07 12:55:00 Test Item Value Reference Range Interpretation Comments Sodium Lvl (test code = Sodium Lvl) 140 135-146 [place] 749461-10-07 12:55:00 Test Item Value Reference Range Interpretation Comments Potassium Lvl (test code = Potassium 4.0 3.5-5.3 Lvl) [facility]2021-10-07 12:55:00 Test Item Value Reference Range Interpretation Comments Chloride Lvl (test code = Chloride Lvl) 105 98-110 [place] 749461-10-07 12:55:00 Test Item Value Reference Range Interpretation Comments CO2 (test code = CO2) 29 20-32 [place] 749461-10-07 12:55:00 Test Item Value Reference Range Interpretation Comments Calcium Lvl (test code = Calcium Lvl) 8.7 8.6-10.4 [place] 749461-10-07 12:55:00 Test Item Value Reference Range Interpretation Comments Total Protein (test code = Total 6.8 6.1-8.1 Protein) [place] 749461-10-07 12:55:00 Test Item Value Reference Range Interpretation Comments Albumin Lvl (test code = Albumin Lvl) 3.7 3.6-5.1 [place] 749461-10-07 12:55:00 Test Item Value Reference Range Interpretation Comments Globulin (test code = Globulin) 3.1 1.9-3.7 [place] 749461-10-07 12:55:00 Test Item Value Reference Range Interpretation Comments A/G Ratio (test code = A/G Ratio) 1.2 1.0-2.5 [place] 749461-10-07 12:55:00 Test Item Value Reference Range Interpretation Comments Bili Total (test code = Bili Total) 0.6 0.2-1.2 [place] 749461-10-07 12:55:00 Test Item Value Reference Range Interpretation Comments Alk Phos (test code = Alk Phos) 59 37-153 [facility]2021-10-07 12:55:00 Test Item Value Reference Range Interpretation Comments ASPARTATE TRANSAMINASE (test code = 18 10-35 ASPARTATE TRANSAMINASE) [place] 749461-10-07 12:55:00 Test Item Value Reference Range Interpretation Comments ALANINE AMINOTRANSFERASE (test code = 23 6-29 ALANINE AMINOTRANSFERASE) [place] 951631-10-07 12:55:00 Test Item Value Reference Range Interpretation Comments WBC X 10x3 (test code = WBC X 10x3) 4.8 3.8-10.8 [place] 951631-10-07 12:55:00 Test Item Value Reference Range Interpretation Comments RBC X 10x6 (test code = RBC X 10x6) 4.50 3.80-5.10 [place] 951631-10-07 12:55:00 Test Item Value Reference Range Interpretation Comments Hgb (test code = Hgb) 12.1 11.7-15.[address]10-07 12:55:00 Test Item Value Reference Range Interpretation Comments Hct (test code = Hct) 37.8 35.0-45.0 [place] 951631-10-07 12:55:00 Test Item Value Reference Range Interpretation Comments MCV (test code = MCV) 84.0 80.0-100.0 [place] 951631-10-07 12:55:00 Test Item Value Reference Range Interpretation Comments MCH (test code = MCH) 26.9 pg 27.0-33.0 [place] 951631-10-07 12:55:00 Test Item Value Reference Range Interpretation Comments MCHC (test code = MCHC) 32.0 32.0-36.0 [place] 951631-10-07 12:55:00 Test Item Value Reference Range Interpretation Comments RDW (test code = RDW) 14.0 11.0-15.0 [place] 951631-10-07 12:55:00 Test Item Value Reference Range Interpretation Comments Platelet (test code = Platelet) 151 140-400 [facility] AreaTuykkycVKUVAYQQLI5858-69-11 12:55:00 Test Item Value Reference Range Interpretation Comments MPV (test code = MPV) 12.1 7.5-12.5 [facility] AreaSwaohdaDSSFMTVEJD6993-24-91 12:55:00 Test Item Value Reference Range Interpretation Comments Neutrophils # (test code = Neutrophils 3139 0147-2838 #) [facility] AreaSutnhfvZESZZDQMQG0264-86-38 12:55:00 Test Item Value Reference Range Interpretation Comments Lymphocytes # (test code = Lymphocytes 6011 367-2423 #) [facility] AreaJlfjoyoDXYGMZEUAO0514-86-35 12:55:00 Test Item Value Reference Range Interpretation Comments Monocytes # (test code = Monocytes #) 350 200-950 [place] 951631-10-07 12:55:00 Test Item Value Reference Range Interpretation Comments Eosinophils # (test code = Eosinophils 72 15-500 #) [place] 951631-10-07 12:55:00 Test Item Value Reference Range Interpretation Comments Basophils # (test code = Basophils #) 29 <=200 [place] 951631-10-07 12:55:00 Test Item Value Reference Range Interpretation Comments Segs (test code = Segs) 65.[address]10-07 12:55:00 Test Item Value Reference Range Interpretation Comments Lymphocytes (test code = Lymphocytes) 25.2 [place] [address]-10-07 12:55:00 Test Item Value Reference Range Interpretation Comments Monocytes (test code = Monocytes) 7.3 [place] [address]-10-07 12:55:00 Test Item Value Reference Range Interpretation Comments Eosinophils (test code = Eosinophils) 1.5 [place] [address]-10-07 12:55:00 Test Item Value Reference Range Interpretation Comments Basophils (test code = Basophils) 0.6 [place] [address]-10-07 12:55:00 Test Item Value Reference Range Interpretation Comments Sed Rate (test code = Sed Rate) 22 [place] [address]-10-07 12:55:00 Test Item Value Reference Range Interpretation Comments C-REACTIVE PROTEIN (test code = 2.9 C-REACTIVE PROTEIN) [facility]2021-10-07 12:55:00 Test Item Value Reference Range Interpretation Comments Vitamin B12 Lvl (test code = Vitamin 170 293-9148 B12 Lvl) [facility]2021-10-07 12:55:00 Test Item Value Reference Range Interpretation Comments Glucose Lvl (test code = Glucose Lvl) 151 65-99 [facility]2021-10-07 12:55:00 Test Item Value Reference Range Interpretation Comments BUN (test code = BUN) 17 7-25 [place] 749461-10-07 12:55:00 Test Item Value Reference Range Interpretation Comments Creatinine Lvl (test code = Creatinine 0.49 0.50-1.05 Lvl) [place] 749461-10-07 12:55:00 Test Item Value Reference Range Interpretation Comments eGFR NON-AFR. [place]UNDIAN (test code = 107 eGFR NON-AFR. B[place]UNDIAN) [place] 749461-10-07 12:55:00 Test Item Value Reference Range Interpretation Comments eGFR (test code = eGFR 124 ) [place] 749461-10-07 12:55:00 Test Item Value Reference Range Interpretation Comments B/C Ratio (test code = B/C Ratio) 35 6-22 [place] 749461-10-07 12:55:00 Test Item Value Reference Range Interpretation [...] CO2 (test code = CO2) 29 20-32 [place] 749461-10-07 12:55:00 Test Item Value Reference Range Interpretation Comments Calcium Lvl (test code = Calcium Lvl) 8.7 8.6-10.4 [place] 749461-10-07 12:55:00 Test Item Value Reference Range Interpretation [...] (test code = Bili Total) 0.6 0.2-1.2 [place] 749461-10-07 12:55:00 Test Item Value Reference Range Interpretation Comments Alk Phos (test code = Alk Phos) 59 37-153 [facility]2021-10-07 12:55:00 Test Item Value Reference Range Interpretation Comments ASPARTATE TRANSAMINASE (test code = 18 10-35 ASPARTATE TRANSAMINASE) [facility]2021-10-07 12:55:00 Test Item Value Reference Range Interpretation Comments ALANINE AMINOTRANSFERASE (test code = 23 6-29 ALANINE AMINOTRANSFERASE) [place] 951631-10-07 12:55:00 Test Item Value Reference Range Interpretation Comments WBC X 10x3 (test code = WBC X 10x3) 4.8 3.8-10.8 [facility] AreaHfhjpzmASFMWFFLFH0859-44-01 12:55:00 Test Item Value Reference Range Interpretation Comments RBC X 10x6 (test code = RBC X 10x6) 4.50 3.80-5.10 [facility] AreaYzfirsyOPGNBXRZRW1440-87-01 12:55:00 Test Item Value Reference Range Interpretation Comments Hgb (test code = Hgb) 12.1 11.7-15.5 [facility]2021-10-07 12:55:00 Test Item Value Reference Range Interpretation Comments Vitamin B12 Lvl (test code = Vitamin 117 037-2124 B12 Lvl) [facility] AreaYnmorqyBARDYQASSK5204-57-26 12:55:00 Test Item Value Reference Range Interpretation Comments Hct (test code = Hct) 37.8 35.0-45.0 [facility] AreaSfadofsHPUTZRBDEU8887-13-61 12:55:00 Test Item Value Reference Range Interpretation Comments MCV (test code = MCV) 84.0 80.0-100.0 [facility] AreaWvblfnpYSBGBMDNLP6494-93-04 12:55:00 Test Item Value Reference Range Interpretation Comments MCH (test code = MCH) 26.9 pg 27.0-33.0 [facility] AreaSrkfbcgRVROTPPFLL4309-90-64 12:55:00 Test Item Value Reference Range Interpretation Comments MCHC (test code = MCHC) 32.0 32.0-36.0 [facility] AreaPmdnihxHMWVQLQNCR0043-49-97 12:55:00 Test Item Value Reference Range Interpretation Comments RDW (test code = RDW) 14.0 11.0-15.0 [place] 951631-10-07 12:55:00 Test Item Value Reference Range Interpretation Comments Platelet (test code = Platelet) 151 140-400 [facility] AreaUbcerqfEVILWUEWAR1578-80-51 12:55:00 Test Item Value Reference Range Interpretation Comments MPV (test code = MPV) 12.1 7.5-12.5 [facility] AreaXbyqpwfCZSLYIVIXK8641-91-70 12:55:00 Test Item Value Reference Range Interpretation Comments Neutrophils # (test code = Neutrophils 9433 9934-0726 #) [facility] AreaPvfibukLGSSFMSVMC2492-60-84 12:55:00 Test Item Value Reference Range Interpretation Comments Lymphocytes # (test code = Lymphocytes 0744 736-3738 #) [facility] AreaEpgeorpDILEAESXZK6308-41-40 12:55:00 Test Item Value Reference Range Interpretation Comments Monocytes # (test code = Monocytes #) 350 200-950 [facility]2021-10-07 12:55:00 Test Item Value Reference Range Interpretation Comments Glucose Lvl (test code = Glucose Lvl) 151 65-99 [facility] AreaRaehnczWQFFPNADOS4308-96-32 12:55:00 Test Item Value Reference Range Interpretation Comments Eosinophils # (test code = Eosinophils 72 15-500 #) [facility] AreaEyljdszTLJUHRQHPE2486-12-64 12:55:00 Test Item Value Reference Range Interpretation Comments Basophils # (test code = Basophils #) 29 <=200 [facility] AreaNifnaqiIKMSXPTASY1318-07-51 12:55:00 Test Item Value Reference Range Interpretation Comments Segs (test code = Segs) 65.4 [facility] AreaOdipedvYCVKGOUOET3575-99-09 12:55:00 Test Item Value Reference Range Interpretation Comments Lymphocytes (test code = Lymphocytes) 25.2 [facility] AreaGcharecPKFZEAZWQL7469-49-13 12:55:00 Test Item Value Reference Range Interpretation Comments Monocytes (test code = Monocytes) 7.3 [facility] AreaHpbpuajIGRJOMJMUT8882-26-60 12:55:00 Test Item Value Reference Range Interpretation Comments Eosinophils (test code = Eosinophils) 1.5 [facility] AreaCynieooJJLGBWCOFR4453-73-19 12:55:00 Test Item Value Reference Range Interpretation Comments Basophils (test code = Basophils) 0.6 [facility] AreaZbbmyolUFAKUOUHQW6274-34-99 12:55:00 Test Item Value Reference Range Interpretation Comments Sed Rate (test code = Sed Rate) 22 [facility]CkgjgutDRMJBIVDDS2109-53-37 12:55:00 Test Item Value Reference Range Interpretation Comments C-REACTIVE PROTEIN (test code = 2.9 C-REACTIVE PROTEIN) [facility]2021-10-07 12:55:00 Test Item Value Reference Range Interpretation Comments BUN (test code = BUN) 17 7-25 [facility]2021-10-07 12:55:00 Test Item Value Reference Range Interpretation Comments Vitamin B12 Lvl (test code = Vitamin 248 916-0226 B12 Lvl) [facility]2021-10-07 12:55:00 Test Item Value Reference Range Interpretation Comments Glucose Lvl (test code = Glucose Lvl) 151 65-99 [facility]2021-10-07 12:55:00 Test Item Value Reference Range Interpretation Comments BUN (test code = BUN) 17 7- [facility]2021-10-07 12:55:00 Test Item Value Reference Range Interpretation Comments Vitamin B12 Lvl (test code = Vitamin 788 465-2586 B12 Lvl) [facility]2021-10-07 12:55:00 [...] Value Reference Range Interpretation Comments eGFR NON-AFR. [place]UNDIAN (test code = 107 eGFR NON-AFR. BURUNDIAN) [facility]2021-10-07 12:55:00 Test Item [...] (test code = Chloride Lvl) 105 98-110 [place] 749461-10-07 12:55:00 Test Item Value Reference Range Interpretation Comments CO2 (test code = CO2) 29 20-32 [place] [address]-10-07 12:55:00 Test Item Value Reference Range Interpretation Comments Calcium Lvl (test code = Calcium Lvl) 8.7 8.6-10.4 [place] 749461-10-07 12:55:00 Test Item Value Reference Range Interpretation Comments Total Protein (test code = Total 6.8 6.1-8.1 Protein) [place] 749461-10-07 12:55:00 Test Item Value Reference Range Interpretation Comments Albumin Lvl (test code = Albumin Lvl) 3.7 3.6-5.1 [place] 749461-10-07 12:55:00 Test Item Value Reference Range Interpretation Comments Globulin (test code = Globulin) 3.1 1.9-3.7 [place] 749461-10-07 12:55:00 Test Item Value Reference Range Interpretation Comments A/G Ratio (test code = A/G Ratio) 1.2 1.0-2.5 [place] 749461-10-07 12:55:00 Test Item Value Reference Range Interpretation Comments Bili Total (test code = Bili Total) 0.6 0.2-1.2 [place] 749461-10-07 12:55:00 Test Item Value Reference Range Interpretation Comments Alk Phos (test code = Alk Phos) 59 37-153 [facility]2021-10-07 12:55:00 Test Item Value Reference Range Interpretation Comments ASPARTATE TRANSAMINASE (test code = 18 10-35 ASPARTATE TRANSAMINASE) [place] 749461-10-07 12:55:00 Test Item Value Reference Range Interpretation Comments ALANINE AMINOTRANSFERASE (test code = 23 6-29 ALANINE AMINOTRANSFERASE) [place] 951631-10-07 12:55:00 Test Item Value Reference Range Interpretation Comments WBC X 10x3 (test code = WBC X 10x3) 4.8 3.8-10.8 [place] 951631-10-07 12:55:00 Test Item Value Reference Range Interpretation Comments RBC X 10x6 (test code = RBC X 10x6) 4.50 3.80-5.10 [place] 951631-10-07 12:55:00 Test Item Value Reference Range Interpretation Comments Hgb (test code = Hgb) 12.1 11.7-15.5 [place] 951631-10-07 12:55:00 Test Item Value Reference Range Interpretation Comments Hct (test code = Hct) 37.8 35.0-45.0 [place] 951631-10-07 12:55:00 Test Item Value Reference Range Interpretation Comments MCV (test code = MCV) 84.0 80.0-100.0 [place] 951631-10-07 12:55:00 Test Item Value Reference Range Interpretation Comments MCH (test code = MCH) 26.9 pg 27.0-33.0 [facility] AreaHffyxofWEGYYETYAF4070-55-38 12:55:00 Test Item Value Reference Range Interpretation Comments MCHC (test code = MCHC) 32.0 32.0-36.0 [place] [id number] 12:55:00 Test Item Value Reference Range Interpretation Comments RDW (test code = RDW) 14.0 11.0-15.0 [place] 951631-10-07 12:55:00 Test Item Value Reference Range Interpretation Comments Platelet (test code = Platelet) 151 140-400 [facility]khfvzoDAHDWAFDWO4133-56-55 12:55:00 Test Item Value Reference Range Interpretation Comments MPV (test code = MPV) 12.1 7.5-12.5 [facility] AreaGukpnolROQYUZTTAQ6145-68-35 12:55:00 Test Item Value Reference Range Interpretation Comments Neutrophils # (test code = Neutrophils 3139 5885-9455 #) [facility] AreaNdvywokQEECBOXDWG7523-01-17 12:55:00 Test Item Value Reference Range Interpretation Comments Lymphocytes # (test code = Lymphocytes 5965 255-4196 #) [facility] AreaCjyizfgLCFLGSLUXR1979-60-59 12:55:00 Test Item Value Reference Range Interpretation Comments Monocytes # (test code = Monocytes #) 350 200-950 [place] 951631-10-07 12:55:00 Test Item Value Reference Range Interpretation Comments Eosinophils # (test code = Eosinophils 72 15-500 #) [place] 951631-10-07 12:55:00 Test Item Value Reference Range Interpretation Comments Basophils # (test code = Basophils #) 29 <=200 [place] 951631-10-07 12:55:00 Test Item Value Reference Range Interpretation Comments Segs (test code = Segs) 65.4 [place] 951631-10-07 12:55:00 Test Item Value Reference Range Interpretation Comments Lymphocytes (test code = Lymphocytes) 25.2 [place] 951631-10-07 12:55:00 Test Item Value Reference Range Interpretation Comments Monocytes (test code = Monocytes) 7.3 [place] [address]-10-07 12:55:00 Test Item Value Reference Range Interpretation Comments Eosinophils (test code = Eosinophils) 1.5 [place] 951631-10-07 12:55:00 Test Item Value Reference Range Interpretation Comments Basophils (test code = Basophils) 0.6 [place] [address]-10-07 12:55:00 Test Item Value Reference Range Interpretation Comments Sed Rate (test code = Sed Rate) 22 [facility]LRR5225[facility]41-94 12:55:00 Test Item Value Reference Range Interpretation Comments C-REACTIVE PROTEIN (test code = 2.9 C-REACTIVE PROTEIN) [place] 749461-10-07 12:55:00 Test Item Value Reference Range Interpretation Comments Creatinine Lvl (test code = Creatinine 0.49 0.50-1.05 Lvl) [place] 749461-10-07 12:55:00 Test Item Value Reference Range Interpretation Comments Creatinine Lvl (test code = Creatinine 0.49 0.50-1.05 Lvl) [facility]2021-10-07 12:55:00 Test Item Value Reference Range Interpretation Comments eGFR NON-AFR. BURUNDIAN (test code = 107 eGFR NON-AFR. BURUNDIAN) [facility]2021-10-07 12:55:00 Test Item Value Reference Range Interpretation Comments eGFR (test code = eGFR 124 ) [place] 749461-10-07 12:55:00 Test Item Value Reference Range Interpretation Comments B/C Ratio (test code = B/C Ratio) 35 6-22 [place] 749461-10-07 12:55:00 Test Item Value Reference Range Interpretation Comments Sodium Lvl (test code = Sodium Lvl) 140 135-146 [place] 749461-10-07 12:55:00 Test Item Value Reference Range Interpretation Comments Potassium Lvl (test code = Potassium 4.0 3.5-5.3 Lvl) [place] 749461-10-07 12:55:00 Test Item Value Reference Range Interpretation Comments Chloride Lvl (test code = Chloride Lvl) 105 98-110 [place] 749461-10-07 12:55:00 Test Item Value Reference Range Interpretation Comments CO2 (test code = CO2) 29 20-32 [place] 749461-10-07 12:55:00 Test Item Value Reference Range Interpretation Comments Calcium Lvl (test code = Calcium Lvl) 8.7 8.6-10.4 [place] 749461-10-07 12:55:00 Test Item Value Reference Range Interpretation Comments Total Protein (test code = Total 6.8 6.1-8.1 Protein) [place] 749461-10-07 12:55:00 Test Item Value Reference Range Interpretation Comments eGFR NON-AFR. BURUNDIAN (test code = 107 eGFR NON-AFR. BURUNDIAN) [facility]2021-10-07 12:55:00 Test Item [...] (test code = 23 6-29 ALANINE AMINOTRANSFERASE) [facility]HupxctlGPGPILWXIU4204-77-74 12:55:00 Test Item Value Reference Range Interpretation Comments WBC X 10x3 (test code = WBC X 10x3) 4.8 3.8-10.8 [facility] AreaHejxhanPVSKDZVIUG2100-89-88 12:55:00 Test Item Value Reference Range Interpretation Comments RBC X 10x6 (test code = RBC X 10x6) 4.50 3.80-5.10 [facility] AreaMxllevsKKBOKWXMFU3752-07-31 12:55:00 Test Item Value Reference Range Interpretation Comments Hgb (test code = Hgb) 12.1 11.7-15.5 [facility]2021-10-07 12:55:00 Test Item Value Reference Range Interpretation Comments eGFR (test code = eGFR 124 ) [facility] AreaNxnayojEZXKARMNVL3032-78-17 12:55:00 Test Item Value Reference Range Interpretation Comments Hct (test code = Hct) 37.8 35.0-45.0 [facility] AreaIgwpcnzKZMDPVVUUI8742-70-76 12:55:00 Test Item Value Reference Range Interpretation Comments MCV (test code = MCV) 84.0 80.0-100.0 [facility] AreaSecxgouPJPTNJNDHB1841-26-43 12:55:00 Test Item Value Reference Range Interpretation Comments MCH (test code = MCH) 26.9 pg 27.0-33.0 [facility] AreaMrtnvgjJDVUXPIAKD3718-55-39 12:55:00 Test Item Value Reference Range Interpretation Comments MCHC (test code = MCHC) 32.0 32.0-36.0 [facility] AreaMaqqvodRDAZXNLSBL2544-61-07 12:55:00 Test Item Value Reference Range Interpretation Comments RDW (test code = RDW) 14.0 11.0-15.0 [facility] AreaAtdzcxsYUBHSEJZBV8204-61-82 12:55:00 Test Item Value Reference Range Interpretation Comments Platelet (test code = Platelet) 151 140-400 [facility] AreaAqjxhsdILIIEHEHIM0698-03-22 12:55:00 Test Item Value Reference Range Interpretation Comments MPV (test code = MPV) 12.1 7.5-12.5 [facility] AreaAdhobaxAQFRJZNDJA9451-92-35 12:55:00 Test Item Value Reference Range Interpretation Comments Neutrophils # (test code = Neutrophils 7639 9542-8302 #) [facility] AreaXcdcherOFROEZDEXG5405-80-58 12:55:00 Test Item Value Reference Range Interpretation Comments Lymphocytes # (test code = Lymphocytes 7802 922-5260 #) [facility] AreaDndevztMZFESRPEJF6028-39-59 12:55:00 Test Item Value Reference Range Interpretation Comments Monocytes # (test code = Monocytes #) 350 200-950 [facility]2021-10-07 12:55:00 Test Item Value Reference Range Interpretation Comments B/C Ratio (test code = B/C Ratio) 35 6-22 [facility] AreaEqlezbbWSMBQJQNSG0486-75-38 12:55:00 Test Item Value Reference Range Interpretation Comments Eosinophils # (test code = Eosinophils 72 15-500 #) [facility] AreaRyynsouGIXTATFEGR1774-12-94 12:55:00 Test Item Value Reference Range Interpretation Comments Basophils # (test code = Basophils #) 29 <=200 [facility] AreaXtdvnbvTUKGXWXEIU5960-28-65 12:55:00 Test Item Value Reference Range Interpretation Comments Segs (test code = Segs) 65.4 [place] 951631-10-07 12:55:00 Test Item Value Reference Range Interpretation Comments Lymphocytes (test code = Lymphocytes) 25.2 [facility] AreaMzosozcXVHZLLCJAY7537-21-13 12:55:00 Test Item Value Reference Range Interpretation Comments Monocytes (test code = Monocytes) 7.3 [facility] AreaBghvkoqRHJGSWFHEA6333-32-46 12:55:00 Test Item Value Reference Range Interpretation Comments Eosinophils (test code = Eosinophils) 1.5 [facility] AreaPeqsyfkIXCASURKKK5678-98-84 12:55:00 Test Item Value Reference Range Interpretation Comments Basophils (test code = Basophils) 0.6 [facility] AreaCaczzozPOOUPRDGAP0948-65-70 12:55:00 Test Item Value Reference Range Interpretation Comments Sed Rate (test code = Sed Rate) 22 [facility]PitiuouAVDLKSNEMD9021-34-72 12:55:00 Test Item Value Reference Range Interpretation Comments C-REACTIVE PROTEIN (test code = 2.9 C-REACTIVE PROTEIN) [facility]2021-10-07 12:55:00 Test Item Value Reference Range Interpretation Comments Sodium Lvl (test code = Sodium Lvl) 140 135-146 [facility]2021-10-07 12:55:00 Test Item Value Reference Range Interpretation Comments Vitamin B12 Lvl (test code = Vitamin [phone] B12 Lvl) [facility]2021-10-07 12:55:00 Test Item Value Reference Range Interpretation Comments Glucose Lvl (test code = Glucose Lvl) 151 65-99 [facility]2021-10-07 12:55:00 Test Item Value Reference Range Interpretation Comments BUN (test code = BUN) 17 7-25 [place] 749461-10-07 12:55:00 Test Item Value Reference Range Interpretation Comments Potassium Lvl (test code = Potassium 4.0 3.5-5.3 Lvl) [facility]2021-10-07 12:55:00 Test Item Value Reference Range Interpretation Comments Creatinine Lvl (test code = Creatinine 0.49 0.50-1.05 Lvl) [place] 749461-10-07 12:55:00 Test Item Value Reference Range Interpretation Comments eGFR NON-AFR. BURUNDIAN (test code = 107 eGFR NON-AFR. BURUNDIAN) [facility]2021-10-07 12:55:00 Test Item Value Reference Range Interpretation Comments eGFR (test code = eGFR 124 ) [place] 749461-10-07 12:55:00 Test Item Value Reference Range Interpretation Comments B/C Ratio (test code = B/C Ratio) 35 6-22 [place] 749461-10-07 12:55:00 Test Item Value Reference Range Interpretation Comments Sodium Lvl (test code = Sodium Lvl) 140 135-146 [facility]2021-10-07 12:55:00 Test Item Value Reference Range Interpretation Comments Potassium Lvl (test code = Potassium 4.0 3.5-5.3 Lvl) [facility]2021-10-07 12:55:00 Test Item Value Reference Range Interpretation Comments Chloride Lvl (test code = Chloride Lvl) 105 98-110 [place] 749461-10-07 12:55:00 Test Item Value Reference Range Interpretation Comments CO2 (test code = CO2) 29 20-32 [place] 749461-10-07 12:55:00 Test Item Value Reference Range Interpretation Comments Calcium Lvl (test code = Calcium Lvl) 8.7 8.6-10.4 [place] 749461-10-07 12:55:00 Test Item Value Reference Range Interpretation [...] (test code = 23 6-29 ALANINE AMINOTRANSFERASE) [facility] AreaGcooaldUYTAHDVQLR2978-83-71 12:55:00 Test Item Value Reference Range Interpretation Comments WBC X 10x3 (test code = WBC X 10x3) 4.8 3.8-10.8 [facility] AreaNtzmbulQNJWRNJQCT2529-09-73 12:55:00 Test Item Value Reference Range Interpretation Comments RBC X 10x6 (test code = RBC X 10x6) 4.50 3.80-5.10 [facility] Yoywghk7970-36-89 22:09:00 Test Item Value Reference Range Interpretation Comments Cholesterol (test 107 mg/dL 0-200 N code = CHOL) Triglycerides (test 76 mg/dL 9-200 N code = TRIG) HDL (test code = 36 mg/dL 50-60 L HDL) Chol/HDL (test code 3.0 Ratio 0.0-4.4 N = CHOLPHDL) LDL, Calculated 56 0-130 N (NOTE)RISK O F HEART (test code = LDLC) DISEASEPu blished by [place] Heart AssociationAnal yte Optimal Boderli ne Increased RiskC HOL <200 200-239 >240TRI G <150 150-199 >200HDL Male: >60 <40HDL Fema le: >60 <50LDL <100 130 -159 >160LDL NEAR OP TIMAL IS 100-129 VLDL (test code = 15 mg/dL 5-40 N VLDL) LDL/HDL (test code = 2 LDLPHDL) Comprehensive Metabolic [id number] 22:09:00 Test Item Value Reference Range Interpretation [...] by the National Kid[employer] Foundation,http ://nkd ep.nih.gov Qsg-[id number] 22:05:00 Test Item Value Reference Range Interpretation Comments NT ProBnp (test code = PBNP) 1920 pg/mL 0-124 H CBC with Myngefbbsity8965-85-93 18:24:00 Test Item Value Reference Range Interpretation [...] code = ALYMPH) 1.4 K/cumm 0.5-4.6 N Granite Abs (test code = AMONO) 0.3 K/cumm 0.0-1.2 N Eos Abs (test code = AEOS) 0.09 K/cumm 0.00-0.74 N Baso Abs (test code = ABASO) 0.0 K/cumm 0.00-0.21 N HEMOGLOBIN A1C Test Item Value Reference Range Interpretation Comments A1C (test code = 4548-4) 6.8% SARS-COV 2 AntigenSARS-COV 2 Antigen"
[2023-03-27 03:25] LABS: Absolute Lymphocytes (CBC) 1.6 K/uL (0.7-4.9); Hematocrit 40.9 % (36.0-45.0); MCV 87.7 fL (80-100); MPV 10.1 fL (7.6-11.3); Platelets 172 thou/uL (152-406); RBC Red Blood Cell Count 4.66 M/uL (3.86-4.86)
[2023-03-27 03:26] LABS: Protime INR 1.24
[2023-03-27 03:30] LABS: Renal Epithelial <5 /HPF (None Seen); Specific Gravity 1.013 (1.005-1.030); Urine Bacteria <20 /HPF (<20); Urine Bilirubin NEGATIVE (Negative); Urine Blood 1+ (Negative); Urine Clarity Clear (Clear); Urine Color Light-Yellow (Yellow); Urine Glucose 4+ (Over) (Negative); Urine Mucus Slight /HPF (None Seen); Urine Protein NEGATIVE (Negative); Urine Urobilinogen Normal (Normal)
[2023-03-27] MEDS ORDERED: MAGNESIUM SULFATE 1 gm IVPB 1 GM/100 ML BAG IV ONE (03:49)
[2023-03-27] MEDS ORDERED: NA CHLORIDE 0.9% 1,000 ML ONE (03:50)
[2023-03-27 04:01] LABS: Albumin 3.2 g/dL (3.4-5.0); Bilirubin Direct 0.2 mg/dL (0-0.2); Bilirubin Indirect, Calculated 0.4 mg/dL (0.2-0.8); Bilirubin Total 0.6 mg/dL (0.2-1.0); Protein, Total 6.9 g/dL (6.4-8.2); Troponin High Sensitivity 19.2 pg/mL (<58.9)
[2023-03-27 04:04] LABS: Potassium 2.5 mEq/L (3.5-5.1)
--- NOTE | 2023-03-27 04:08 | EDPHYS ---
Physician Documentation [facility] Name: Sukh York Age: 63 yrs Sex: Female : 1960 Arrival Date: 03/27/2023 Time: 02:32 Bed 5 Private MD: ED Physician Gus San HPI: 03/27 04:02 This 63 yrs old Female presents to ER via EMS with complaints of defibrillator guerita fired x2, hx of chf. 04:02 The patient or guardian reports chest pain that is located primarily in the substernal guerita area. Onset: just prior to arrival, this morning. The pain does not radiate. Associated signs and symptoms: Pertinent positives: lightheadedness, nausea, shortness of breath. The chest pain is described as aching. Duration: The patient or guardian reports multiple episodes, with no pattern. Severity of pain: At its worst the pain was mild in the emergency department the pain has resolved and did so just prior to arrival. The patient has experienced similar episodes in the past, multiple times. Historical: - Allergies: 02:44 PENICILLINS; lg3 - PMHx: 02:44 Aneurysm; CHF; COPD; Diabetes - NIDDM; Hypertension; lg3 - PSHx: 02:44 defibrillator; lg3 - Immunization history:: Adult Immunizations up to date, Client reports receiving the 2nd dose of the Covid vaccine, Flu vaccine is up to date. - Social history:: Smoking status: Patient denies any tobacco usage or history of. Patient/guardian denies using alcohol, street drugs. - Family history:: not pertinent. ROS: 04:02 Constitutional: Negative for fever, chills, and weight loss, Eyes: Negative for injury, guerita pain, redness, and discharge, ENT: Negative for injury, pain, and discharge, Neck: Negative for injury, pain, and swelling, Abdomen/GI: Negative for abdominal pain, nausea, vomiting, diarrhea, and constipation, Back: Negative for injury and pain, : Negative for injury, bleeding, discharge, and swelling, MS/Extremity: Negative for injury and deformity, Skin: Negative for injury, rash, and discoloration, Neuro: Negative for headache, weakness, numbness, tingling, and seizure, Psych: Negative for depression, anxiety, suicide ideation, homicidal ideation, and hallucinations, Allergy/Immunology: Negative for hives, rash, and allergies, Endocrine: Negative for neck swelling, polydipsia, polyuria, polyphagia, and marked weight changes, Hematologic/Lymphatic: Negative for swollen nodes, abnormal bleeding, and unusual bruising, 04:02 Cardiovascular: Positive for chest pain, 04:02 Respiratory: Positive for shortness of breath, at rest. Exam: 04:02 Constitutional: This is a well developed, well nourished patient who is awake, alert, guerita and in no acute distress. Head/Face: Normocephalic, atraumatic. Eyes: Pupils equal round and reactive to light, extra-ocular motions intact. Lids and lashes normal. Conjunctiva and sclera are non-icteric and not injected. Cornea within normal limits. Periorbital areas with no swelling, redness, or edema. ENT: Nares patent. No nasal discharge, no septal abnormalities noted. Tympanic membranes are normal and external auditory canals are clear. Oropharynx with no redness, swelling, or masses, exudates, or evidence of obstruction, uvula midline. Mucous membranes moist. Neck: Trachea midline, no thyromegaly or masses palpated, and no cervical lymphadenopathy. Supple, full range of motion without nuchal rigidity, or vertebral point tenderness. No Meningismus. Chest/axilla: Normal chest wall appearance and motion. Nontender with no deformity. No lesions are appreciated. Cardiovascular: Regular rate and rhythm with a normal S1 and S2. No gallops, murmurs, or rubs. Normal PMI, no JVD. No pulse deficits. Respiratory: Lungs have equal breath sounds bilaterally, clear to auscultation and percussion. No rales, rhonchi or wheezes noted. No increased work of breathing, no retractions or nasal flaring. Abdomen/GI: Soft, non-tender, with normal bowel sounds. No distension or tympany. No guarding or rebound. No evidence of tenderness throughout. Back: No spinal tenderness. No costovertebral tenderness. Full range of motion. Female : Normal external genitalia. Skin: Warm, dry with normal turgor. Normal color with no rashes, no lesions, and no evidence of cellulitis. MS/ Extremity: Pulses equal, no cyanosis. Neurovascular intact. Full, normal range of motion. Neuro: Awake and alert, GCS 15, oriented to person, place, time, and situation. Cranial nerves II-XII grossly intact. Motor strength 5/5 in all extremities. Sensory grossly intact. Cerebellar exam normal. Normal gait. Psych: Awake, alert, with orientation to person, place and time. Behavior, mood, and affect are within normal limits. Vital Signs: 02:41 BP 116 / 76; Pulse 95; Resp 17 S; Temp 98.4(O); Pulse Ox 100% on R/A; Weight 112.04 kg lg3 (R); Height 5 ft. 1 in. (R); Pain 0/10; 04:55 BP 101 / 70; Pulse 84; Resp 17 S; Pulse Ox 100% on R/A; lg3 06:50 BP 119 / 83; Pulse 76; Resp 18 S; Pulse Ox 98% on R/A; lg3 02:41 Body Mass Index 46.67 (112.04 kg, 154.94 cm) lg3 02:41 Pain Scale: Adult lg3 NIH Stroke Scale Scores: 04:02 NIHSS Score: 0 guerita Manuel Coma Score: 04:02 Eye Response: spontaneous(4). Motor Response: obeys commands(6). Verbal Response: guerita oriented(5). Total: 15. MDM: 02:44 Patient medically screened. [facility] 03/27 02:50 Order name: Basic Metabolic Panel [facility] 03/27 02:50 Order name: CBC with Diff; Complete Time: 03:45 [facility] 03/27 02:50 Order name: LFT's guerita 03/27 02:50 Order name: Magnesium [facility] 03/27 02:50 Order name: NT PRO-BNP [facility] 03/27 02:50 Order name: PT-INR; Complete Time: 03:45 [facility] 03/27 02:50 Order name: Troponin HS [facility] 03/27 02:50 Order name: Urinalysis w/ reflexes; Complete Time: 03:45 [facility] 03/27 03:45 Order name: Blood Culture Adult (2) [facility] 03/27 03:45 Order name: Lactate w/ 2H reflex if indic. [facility] 03/27 04:06 Order name: Phosphorus [facility] 03/27 04:09 Order name: Phosphorus EDMS 03/27 02:50 Order name: XRAY Chest (1 view) [facility] 03/27 02:50 Order name: EKG; Complete Time: 02:51 [facility] 03/27 02:50 Order name: Cardiac monitoring; Complete Time: 02:52 [facility] 03/27 02:50 Order name: EKG - Nurse/Tech; Complete Time: 02:52 [facility] 03/27 02:50 Order name: IV Saline Lock; Complete Time: 02:52 [facility] 03/27 02:50 Order name: Labs collected and sent; Complete Time: 02:52 [facility] 03/27 02:50 Order name: O2 Per Protocol; Complete Time: 02:52 [facility] 03/27 02:50 Order name: O2 Sat Monitoring; Complete Time: 02:52 [facility] Administered Medications: 04:06 Discontinued: ns 0.9% 1000 ml IV at 125 ml/hr continuous guerita 03:45 Drug: NS 0.9% IV 1000 ml IV at 125 ml/hr continuous Route: IV; Rate: 125 ml/hr; [facility]; 04:54 Follow up: IV Status: Order to discontinue infusion; IV Intake: 100ml lg3 03:45 Drug: Magnesium Sulfate IVPB 1 grams IVPB once over 1 hrs Route: IVPB; Infused Over: 1 ha1 hrs; Site: left antecubital; 04:54 Follow up: Response: No adverse reaction; IV Status: Completed infusion; IV Intake: lg3 100ml 04:54 Drug: Meropenem IV 1 grams IV at per protocol once; (mix in NS 100 mL) Route: IV; Rate: lg3 per protocol; Site: left antecubital; 04:55 Follow up: Response: No adverse reaction; IV Status: Completed infusion; IV Intake: lg3 100ml 04:54 Drug: Potassium PO Effervescent Tablet 50 mEq PO once; dissolve in 4 ounces of water or lg3 juice Route: PO; 06:52 Follow up: Response: No adverse reaction lg3 04:54 Drug: Potassium Chloride IV 20 mEq IV at per protocol once; administer over 1-2 hours lg3 Route: IV; Rate: per protocol; Site: left antecubital; 06:52 Follow up: IV Status: Infusion continued upon transfer lg3 04:55 Drug: NS 0.9% with KCl IV 20 mEq/L 1000 ml IV at 125 ml/hr continuous Route: IV; Rate: lg3 125 ml/hr; Site: left antecubital; 06:52 Follow up: IV Status: Infusion continued upon transfer lg3 06:35 Drug: Acetaminophen PO 1000 mg PO once Route: PO; ha1 06:51 Follow up: Response: No adverse reaction lg3 Disposition Summary: 03/27/23 04:08 Transfer Ordered Notes: Transfer Location: [facility] guerita Reason: Higher level of care guerita Condition: Fair guerita Problem: new guerita Symptoms: have improved guerita Accepting Physician: [facility] cardio(03/27/23 06:52) lg3 Diagnosis - Dyspnea guerita - Combined systolic (congestive) and diastolic (congestive) heart failure guerita - Hypokalemia guerita - Presence of cardiac pacemaker - Defibrillator, Dischargrd x 2 guerita Forms: - Medication Reconciliation Form guerita - SBAR form guerita NIH Stroke Scale - NIH Stroke Score Date: 03/27/2023 Time: 04:02 Total Score = 0 10. Dysarthria (speech clarity - read or repeat words) - 0(Normal) 11. Extinction and Inattention (visual/tactile/auditory/spatial/personal) - 0(No abnormality) 1a. Level of Consciousness (LOC) - 0(Alert) 1b. Level of Consciousness (LOC) (Month \T\ Age) - 0(Both) 1c. LOC Commands (Open \T\ Closes Eyes/Shipwright Supervisor) - 0(Both) 2. Best Gaze (Lateral Gaze Paresis) - 0(Normal) 3. Visual Field Loss - 0(No visual loss) 4. Facial Palsy - 0(Normal) 5a. Left Arm: Motor (10-second hold) - 0(No drift) 5b. Right Arm: Motor (10-second hold) - 0(No drift) 6a. Left Leg: Motor (5-second hold - always test supine) - 0(No drift) 6b. Right Leg: Motor (5-second hold - always test supine) - 0(No drift) 7. Limb Ataxia (finger/nose \T\ heel/brush - test with eyes open) - 0(Absent) 8. Sensory Loss (pinprick arms/legs/face) - 0(Normal) 9. Best Language: Aphasia (description/naming/reading) - 0(No aphasia) Initials: guerita Signatures: Dispatcher [employer] Gus Gardner MD MD cha Gibson, Lacie, RN RN lg3 Nancy Rosen RN RN ha1 Corrections: (The following items were deleted from the chart) 04:09 04:[address] [facility] cardio guerita guerita 06:52 04:[address] [facility] cardio guerita lg3
--- NOTE | 2023-03-27 04:08 | ER ---
Nurse's Notes [facility] Name: Sukh York Age: 63 yrs Sex: Female : 1960 Arrival Date: 03/27/2023 Time: 02:32 Bed 5 Private MD: Diagnosis: Dyspnea;Combined systolic (congestive) and diastolic (congestive) heart failure;Hypokalemia;Presence of cardiac pacemaker-Defibrillator, Dischargrd x 2 Presentation: 03/27 02:41 Chief complaint: EMS states: defibrillator went off 1hr CONTINUOUS IMPROVEMENT BLACK BELT X2. on ems arrival, PT lg3 lethargic, non palpable pulses, pale, diaphoretic. in route to hospital, defibrillator went of again. at this time pt converted to normal sinus rhythm. on arrival to ED pt AAOx4. denies pain. reports weakness and being tired. Coronavirus screen: Client denies travel out of the [place] in the last 14 days. At this time, the client does not indicate any symptoms associated with coronavirus-19. Ebola Screen: No symptoms or risks identified at this time. Initial Sepsis Screen: Does the patient meet any 2 criteria? No. Patient's initial sepsis screen is negative. Does the patient have a suspected source of infection? No. Patient's initial sepsis screen is negative. Risk Assessment: Do you want to hurt yourself or someone else? Patient reports no desire to harm self or others. Onset of symptoms was March 27, 2023. 02:41 Method Of Arrival: EMS: [facility] lg3 02:41 Acuity: RADHA 3 lg3 Triage Assessment: 02:44 General: Appears in no apparent distress. comfortable, Behavior is calm, cooperative. lg3 Pain: Denies pain. EENT: No deficits noted. No signs and/or symptoms were reported regarding the EENT system. Neuro: No deficits noted. Sheffield Agitation-Sedation Scale (RASS): 0 - Alert and Calm Level of Consciousness is awake, alert, obeys commands, Oriented to person, place, time, situation. Cardiovascular: No deficits noted. Denies chest pain, shortness of breath, Capillary refill < 3 seconds Clubbing of nail beds is absent JVD is absent Patient's skin is warm and dry. Rhythm is sinus rhythm. Respiratory: No deficits noted. Airway is patent Respiratory effort is even, unlabored, Respiratory pattern is regular, symmetrical. GI: No deficits noted. No signs and/or symptoms were reported involving the gastrointestinal system. Abdomen is round non-distended, obese. : No deficits noted. No signs and/or symptoms were reported regarding the genitourinary system. Derm: No deficits noted. No signs and/or symptoms reported regarding the dermatologic system. Skin is intact, is healthy with good turgor, Skin is dry, Skin is normal, Skin temperature is warm. Musculoskeletal: No deficits noted. No signs and/or symptoms reported regarding the musculoskeletal system. Circulation, motion, and sensation intact. Range of motion: intact in all extremities. Historical: - Allergies: 02:44 PENICILLINS; lg3 - PMHx: 02:44 Aneurysm; CHF; COPD; Diabetes - NIDDM; Hypertension; lg3 - PSHx: 02:44 defibrillator; lg3 - Immunization history:: Adult Immunizations up to date, Client reports receiving the 2nd dose of the Covid vaccine, Flu vaccine is up to date. - Social history:: Smoking status: Patient denies any tobacco usage or history of. Patient/guardian denies using alcohol, street drugs. - Family history:: not pertinent. Screenin:49 [facility] ED Fall Risk Assessment (Adult) History of falling in the last 3 months, lg3 including since admission No falls in past 3 months (0 pts). Abuse screen: Denies threats or abuse. Denies injuries from another. Nutritional screening: No deficits noted. Tuberculosis screening: No symptoms or risk factors identified. Assessment: 02:48 General: see triage assessment. lg3 04:55 Reassessment: Patient appears in no apparent distress at this time. No changes from lg3 previously documented assessment. Patient and/or family updated on plan of care and expected duration. Pain level reassessed. Patient is alert, oriented x 3, equal unlabored respirations, skin warm/dry/pink. Patient states feeling better. Patient states symptoms have improved. 05:56 Reassessment: Patient and/or family updated on plan of care and expected duration. Pain ha1 level reassessed. Patient is alert, oriented x 3, equal unlabored respirations, skin warm/dry/pink. Vital Signs: 02:41 BP 116 / 76; Pulse 95; Resp 17 S; Temp 98.4(O); Pulse Ox 100% on R/A; Weight 112.04 kg lg3 (R); Height 5 ft. 1 in. (R); Pain 0/10; 04:55 BP 101 / 70; Pulse 84; Resp 17 S; Pulse Ox 100% on R/A; lg3 06:50 BP 119 / 83; Pulse 76; Resp 18 S; Pulse Ox 98% on R/A; lg3 02:41 Body Mass Index 46.67 (112.04 kg, 154.94 cm) lg3 02:41 Pain Scale: Adult lg3 Manuel Coma Score: 04:02 Eye Response: spontaneous(4). Motor Response: obeys commands(6). Verbal Response: guerita oriented(5). Total: 15. NIH Stroke Scale Scores: 04:02 NIHSS Score: 0 guerita ED Course: 02:34 Patient arrived in ED. rv1 02:44 Gus San MD is Attending Physician. guerita 02:44 Triage completed. lg3 02:44 Arm band placed on right wrist. lg3 02:49 Patient has correct armband on for positive identification. Placed in gown. Bed in low lg3 position. Call light in reach. Side rails up X 1. Client placed on continuous cardiac and pulse oximetry monitoring. NIBP monitoring applied. transformation coach on. Door closed. Noise minimized. Warm blanket given. 02:49 Maintain EMS IV. Dressing intact. Good blood return noted. Site clean \T\ dry. Gauge \T\ lg 3 site: 18LAC. Patient maintains SpO2 saturation greater than 95% on room air. 03:02 XRAY Chest (1 view) In Process Unspecified. EDMS 03:12 Urinalysis w/ reflexes Sent. rv1 04:15 Initiated transfer with Juliette at [facility]. rv1 04:[address] Rangel to [facility] 9A Rm 901. rv1 04:42 Phosphorus Sent. lg3 04:54 Lactate w/ 2H reflex if indic. Sent. lg3 04:54 Blood Culture Adult (2) Sent. lg3 05:08 Called Ananya with EMS for transfer truck, told truck would be available at 0600. rv1 06:51 No provider procedures requiring assistance completed. Patient transferred, IV remains lg3 in place. No redness/swelling at site. Administered Medications: 04:06 Discontinued: ns 0.9% 1000 ml IV at 125 ml/hr continuous guerita 03:45 Drug: NS 0.9% IV 1000 ml IV at 125 ml/hr continuous Route: IV; Rate: 125 ml/hr; Site: ha1 left antecubital; 04:54 Follow up: IV Status: Order to discontinue infusion; IV Intake: 100ml lg3 03:45 Drug: Magnesium Sulfate IVPB 1 grams IVPB once over 1 hrs Route: IVPB; Infused Over: 1 ha1 hrs; Site: left antecubital; 04:54 Follow up: Response: No adverse reaction; IV Status: Completed infusion; IV Intake: lg3 100ml 04:54 Drug: Meropenem IV 1 grams IV at per protocol once; (mix in NS 100 mL) Route: IV; Rate: lg3 per protocol; Site: left antecubital; 04:55 Follow up: Response: No adverse reaction; IV Status: Completed infusion; IV Intake: lg3 100ml 04:54 Drug: Potassium PO Effervescent Tablet 50 mEq PO once; dissolve in 4 ounces of water or lg3 juice Route: PO; 06:52 Follow up: Response: No adverse reaction lg3 04:54 Drug: Potassium Chloride IV 20 mEq IV at per protocol once; administer over 1-2 hours lg3 Route: IV; Rate: per protocol; Site: left antecubital; 06:52 Follow up: IV Status: Infusion continued upon transfer lg3 04:55 Drug: NS 0.9% with KCl IV 20 mEq/L 1000 ml IV at 125 ml/hr continuous Route: IV; Rate: lg3 125 ml/hr; Site: left antecubital; 06:52 Follow up: IV Status: Infusion continued upon transfer lg3 06:35 Drug: Acetaminophen PO 1000 mg PO once Route: PO; ha1 06:51 Follow up: Response: No adverse reaction lg3 Medication: 06:51 VIS not applicable for this client. lg3 Intake: 04:54 IV: 100ml; Total: 100ml. lg3 04:54 IV: 100ml; Total: 200ml. lg3 04:55 IV: 100ml; Total: 300ml. lg3 Outcome: 04:08 ER care complete, transfer ordered by MD. dexter 06:51 Transferred by ground EMS to [facility], Transfer form lg3 completed. 06:51 Condition: stable 06:51 Instructed on the need for admit, Demonstrated understanding of instructions, 06:52 Patient left the ED. lg3 NIH Stroke Scale - NIH Stroke Score Date: 03/27/2023 Time: 04:02 Total Score = 0 10. Dysarthria (speech clarity - read or repeat words) - 0(Normal) 11. Extinction and Inattention (visual/tactile/auditory/spatial/personal) - 0(No abnormality) 1a. Level of Consciousness (LOC) - 0(Alert) 1b. Level of Consciousness (LOC) (Month \T\ Age) - 0(Both) 1c. LOC Commands (Open \T\ Closes Eyes/Dumpster Operator) - 0(Both) 2. Best Gaze (Lateral Gaze Paresis) - 0(Normal) 3. Visual Field Loss - 0(No visual loss) 4. Facial Palsy - 0(Normal) 5a. Left Arm: Motor (10-second hold) - 0(No drift) 5b. Right Arm: Motor (10-second hold) - 0(No drift) 6a. Left Leg: Motor (5-second hold - always test supine) - 0(No drift) 6b. Right Leg: Motor (5-second hold - always test supine) - 0(No drift) 7. Limb Ataxia (finger/nose \T\ heel/brush - test with eyes open) - 0(Absent) 8. Sensory Loss (pinprick arms/legs/face) - 0(Normal) 9. Best Language: Aphasia (description/naming/reading) - 0(No aphasia) Initials: guerita Signatures: Dispatcher [employer] EDGus Nevarez MD MD cha Gibson, Lacie RN RN lg3 Nancy Rosen RN RN 1 Tiesha Dobbins [facility]
[2023-03-27 04:17] LABS: Phosphorus 3.2 mg/dL (2.5-4.9)
[2023-03-27] MEDS ORDERED: KCL 20 MEQ/100 mL IVPB 100 ML IV ONE (04:43)
[2023-03-27] MEDS ORDERED: POTASSIUM 25 MEQ EFFERV TAB ONE (04:43)
[2023-03-27] MEDS ORDERED: NS KCL 20MEQ 1,000 ML IV ONE (04:43)
[2023-03-27] MEDS ORDERED: Meropenem 1000 MG/VIAL IV ONE (04:43)
[2023-03-27] MEDS ORDERED: NA CHLORIDE 0.9% 100 ML ONE (04:44)
[2023-03-27] MEDS ORDERED: ACETAMINOPHEN 500 MG TAB ONE (06:48)
[2023-03-27 06:57] VITALS: TEMP 98.4
[2023-03-27 06:59] VITALS: BP 119/83; O2SAT 98
--- NOTE | 2023-03-27 07:50 | RAD REPORT ---
EXAM DESCRIPTION: Rebecca Single View03/27/2023 3:00 am CLINICAL HISTORY: Cough COMPARISON: January 2023 FINDINGS: The lungs appear clear of acute infiltrate. The heart is mildly enlarged. Pacemaker leads in place IMPRESSION: No acute abnormalities displayed
--- NOTE | 2023-03-29 14:17 | EKG ---
Test Date: 2023-03-27 Test Time: 02:39:20 [employer]: [place] MEASUREMENT RESULTS: Intervals: Rate: 94 DE: 160 QRSD: 140 QT: 380 QTc: 475 Branford: P: 98 DE: 160 QRS: -34 T: 93 INTERPRETIVE STATEMENTS: Normal sinus rhythm Left axis deviation Left ventricular hypertrophy with QRS widening and repolarization abnormality Abnormal ECG Compared to ECG 01/20/2023 23:35:55 Left ventricular hypertrophy now present Early repolarization now present Left bundle-branch block no longer present Electronically Signed On 03-29-23 14:09:23 SUPPORT SPECIALIST by Lan Dawson
== END 2023-03-27 06:52 | disposition short-term general hospital (02) ==
LOC: ER 02:32
DX: R06.00 Dyspnea, unspecified (principal); I50.40 Unspecified combined systolic (congestive) and diastolic (congestive) heart failure; E87.6 Hypokalemia; Z95.810 Presence of automatic (implantable) cardiac defibrillator; I10 Essential (primary) hypertension; Z88.0 Allergy status to penicillin
CPT/HCPCS: 96365; 96367; 93005; 87040 ×2; 85025; 81001; 80048; 36415; 83735; 84100; 85610; 80076; 83605; 84484; 83880; 71045; 96375; 99285; 96366; J3480 ×2; J3475; J2185; J7030

== ENCOUNTER 2023-04-15 01:04 | Emergency (ER) | payer OTHER ==
--- OUTSIDE RECORDS SUMMARY | 2023-04-15 01:32 | XMS REPORT | Continuity of Care Document ---
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 Primary Care Physician [address] [phone] [place] [id number] MD MANSOOR LEMUS Attending Provider [address] [facility] [email or web address] [address] ELI ALVARADO Unavailable [address] Unavailable [place] [phone] Meneses, Manasa Unavailable [address] [address] [place] [phone] Thea Alvarado Unavailable Unavailable [phone] Meneses, Manasa Unavailable [address] [phone] [place] [address] Meneses, Manasa Unavailable [address] [place] [address] [address] [place] [address] Eli Alvarado Sibling [address] [phone] [place] [address] MALLORY COATES Unavailable DEC, AILIN JUNG M Unavailable Unavailable Markell Dec, Ailin Mother Unavailable Unavailable Laila Meneses Child Unavailable Care Team Providers Name Role Phone JACQUI ROBLEDO Primary Care Physician Unavailable Aissatou Tapia Attending Clinician Unavailable JACQUI ROBLEDO Attending Clinician Unavailable Jacqui Robledo Attending Clinician Unavailable Aleah Nicholson Attending Clinician Unavailable WOOD ROACH Attending Clinician Unavailable Draw, [facility] Attending Clinician Unavailable Vaughn Whipple Attending Clinician VAUGHN MORRISON Attending Clinician Unavailable RADIOLOGY Attending Clinician Unavailable Kerry Mehta Attending Clinician Doctor Unassigned, [place] Attending Clinician Unavailable Nancy Duron RN Attending Clinician Unavailable Giovany Lee Attending Clinician Wood Roach MD Attending Clinician [phone] ONELIA JACOB Attending Clinician Unavailable Yusuf Howe MD Attending Clinician Marychuy Adames RN Attending Clinician Unavailable [email or web address] Attending Clinician Unavailable MIREYA ANGEL Attending Clinician Unavailable GIOVANY DILL Attending Clinician Unavailable SOPHIE PITTMAN Attending Clinician Unavailable Mireya Ivory Attending Clinician FE US Attending Clinician Unavailable Alyssa Dodd MD Attending Clinician [phone] ALYSSA DODD Attending Clinician Unavailable Sigifredo Ramirez MD Attending Clinician SIGIFREDO RAMIREZ Attending Clinician Unavailable SIGIFREDO RAMIREZ Attending Clinician Unavailable VIVEK IVEY Attending Clinician Unavailable Lab, Ang - Db Attending Clinician Unavailable Andrews Chavez MD Attending Clinician ANDREWS CHAVEZ Attending Clinician Unavailable ANDREWS CHAVEZ Attending Clinician Unavailable LATASHA MANN Attending Clinician Unavailable Latasha Mann MD Attending Clinician 1, Adc Sleep Lab Bed Attending Clinician Unavailable Feliberto, General Cardiology Attending Clinician Unavailable Testing, [facility] Pulmonary Function Attending Clinician UnavailMiguel Spencer MD [...] Joel Turner MD K.HRenuka Attending Clinician JOEL TURNER.HRenuka Attending Clinician Unavailable Kennedy_Lucio Attending Clinician Unavailable JACQUI ROBLEDO Attending Clinician Unavailable WOOD ROACH Admitting Clinician Unavailable Wood Roach MD Admitting Clinician [phone] YUSUF HOWE Admitting Clinician Unavailable [email or web address] Admitting Clinician Unavailable JOEL TURNER.HRenuka Admitting Clinician Unavailable Fina Admitting Clinician Unavailable JACQUI ROBLEDO Admitting Clinician Unavailable Payers Payer Name Policy Type Policy Number Effective Date Expiration Date S jerome [facility] DUAL [id number] 2021 COMP HMO D SNP 00:00:00 MEDICAID [facility] [id number] 2017 00:00:00 [place] [id number] 2023 00:00:00 [facility] MCR Dual 53 [id number] 2021 2023 Common Complete Choice 00:00:00 00:00:00 [facility] D-SNP[facility] MEDICARE NOVITAS MB [id number] [facility] MEDICARE NOVITAS MB [id number] [facility] MEDICARE NOVITAS MB [id number] [facility] MEDICARE NOVITAS MB [id number] [facility] MEDICARE NOVITAS MB [id number] [facility] [employer] - [id number] 2020 [facility] 00:00:00 (MEDICARE REPLACEMENT/ADVAN TAGE - H[place]) [place] [id number] [place] [facility] [id number] - DUAL COMPLETE - DUAL ELIGIBLE - SNP (MEDICARE-MEDICAI D REPLACEMENT HMO) Problems Condition Condition Condition Status Onset Resolution Last Treating Co mments Source Name Details Category Date Date Treatment Clinician Date Inappropri Inappropri Disease Active 2022-05 U chris ate shocks ate shocks 05-27 it y of from ICD from ICD 00:00: [place] (implantab (implantab 00 Me dical le le Branch cardiovert cardiovert er-defibri er-defibri llator), llator), initial initial encounter encounter Paroxysmal Paroxysmal Disease Active 2022-05 U nivers atrial atrial 1-09 [place]y of fibrill[place] fibr[place] Angina Angina Disease Active Univers pectoris pectoris 4-19 ity of 00:00: [place] [facility] Diabetes Diabetes Disease Active Unive rs mellitus mellitus 4-19 ity of 00:00: [place] [facility] Sick sinus Sick sinus Disease Active U nivers syndrome syndrome 4-19 ity of 00:00: [place] [facility] Ventricula Ventricula Disease Active U [...] Spirit on unspecifie - CHI d type [facility] [id number] Unsteady Problem Commo n gait [facility] - [facility] [id number] Obstructiv Problem Com mon e sleep Spirit apnea - CHI (adult) (pediatric [facility] Hypertensi Hypertensi Problem C ommon on on Spirit - [facility] [id number] Varicose Problem Commo n veins of Spirit bilateral - [facility] lower [facility] s with Medical pain Center [id number] COVID Problem Common [facility] - CH[facility] [id number] Brain mass Problem Co mmon [facility] - [facility] [id number] 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 intractabl Medica l e Center [id number] Type 2 Problem Common diabetes Spirit mellitus - CHI with [facility] Medical without Center long-term current use of insulin [id number] Primary Problem Comm on osteoarthr Spirit itis of - CHI left knee [facility] Peripheral Peripheral Problem [facility] vascular vascular Spirit disease disease - [facility] Type II Diabetes Problem Common diabetes type 2, Spirit mellitus controlled - CH I well [facility] Cardiomyop Cardiomyop Problem C naveen athy athy [facility] [id number] Constipati Problem Com mon on, Spirit unspecifie - CHI d constipati [facility] [id number] AICD Problem Common (automatic Spirit cardiovert - [facility] er/defibri [facility] [id number] Other Problem Common chronic Spirit pain - CHI [facility] [id number] Tremor of Problem Com mon both hands [facility] - [facility] [id number] Polyarthra Problem Com mon lgia [facility] - [facility] [id number] Chest Problem Common pain, [facility] unspecifie - CHI d type [facility] [id number] Chronic Problem Common congestive Spirit heart [facility], [facility] Center type [id number] Morbid Problem Common (severe) Spirit obesity - CHI due to [facility] [id number] Coronary Problem Com mon 107 artery Spirit disease - CHI involving [facility] coronary Medical artery of Center [place] heart, angina presence unspecifie d [id number] Primary Problem Comm on osteoarthr Spirit itis of - CHI right knee [facility] [id number] Status Problem Common post fall [facility] [id number] Falls Problem Common frequently [facility] [id number] Shortness Problem Com mon of breath [facility] - CH[facility] Depression Depression Problem C ommon [facility] - CHI [facility] [id number] Peripheral Problem Co mmon edema [facility] - CH[facility] [id number] Asthma, Problem Commo n unspecifie Spirit d asthma - [facility]I severity, [facility] whether Medical complicate Center d, unspecifie d whether persistent [id number] Non-pressu Problem Com mon re chronic Spirit ulcer of - CHI unspecifie St d part of [facility] left lower Medica l leg with Center unspecifie d severity [id number] Varicose Problem Comm on veins of Spirit left lower - CHI extremity St with ulcer [facility] unspecifie Center d site Cardiac Cardiac Problem Active 2021-07-26 Me moria defibrilla defibrilla 22:53:26 l tor in tor in [place] situ situ (finding) (finding) Active Problem 07/26/2021 [facility] 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 22:53:26 l s s [place] (disorder) (disorder) Active Problem 07/26/2021 [facility] Congestive Congestiv Problem Active 2021-07-26 Memoria heart e heart 22:53:26 l failure failure [place] (disorder) (disorder) Active Problem 07/26/2021 [facility] Headache Headache Problem Active 2021-07-26 Memoria (finding) (finding) 22:53:26 l Active [place] Problem 07/26/2021 [facility] Neoplasm Neoplasm Problem [...] Branch Penicill Propensi Active Other - See 2017-0 Seizures Univers ins ty to comments 3-22 ity of adverse 00:00: [place] reaction 00 Medical s Branch PENICILL Drug Active Other-Cmnt 2017-0 Univ ers INS Class 3-22 ity of 00:00: [place] 00 Medical Branch Penicill Propensi Active Other - See 2017-0 Seizures Univers ins ty to comments 3-22 ity of adverse 00:00: [place] reaction 00 Medical s Branch PENICILL Allergy Active [place] to da [facility] e [facility] penicill penicill Active Memori a in in l Kasi Penicill Penicill Active Unknown Commo n in in Spirit - [facility] Social History Social Habit Start Date Stop Date Quantity Comments Source Sexual orientation [facility] Tobacco use and 2023-03-27 2023-03-27 Smokeless Universit y of exposure 00:00:00 00:00:00 tobacco non-user [facility] Alcohol intake 2023-03-27 2023-03-27 Lifetime University of 00:00:00 00:00:00 non-drinker [facility] (finding) Branch Exposure to 2022-10-06 2022-10-16 Not sure University SARS-CoV-2 (event) 00:00:00 11:16:00 [facility] History of Social 2022-07-08 2022-07-08 Univers ity of function 00:00:00 00:00:00 [facility] Social History 2021-02-21 2021-02-21 [facility] otf 19:06:01 19:06:01 History of tobacco 2014-05-19 Passive smoker Un iversity of use 00:00:00 [facility] Sex Ass[birth year] At [birth year] [facility] 00:00:00 00:00:00 Medical Center Smoking Status Start Date Stop Date Source Ex-smoker 2023-03-27 00:00:00 2023-03-27 00:00:00 Universi ty of [facility] Medications Ordered Filled Start Stop Current Ordering Indication Dosage Frequency Signature Comments Components Source Medication Medication Date Date Medication? Clinician (SIG) Name Name spironolact 2022-05 Yes [id number] 12.5mg Take 0.5 Univers one 25 mg 1-11 tablets by ity of tablet 00:00: mouth in [place] 00 the Medical morning. Branch spironolact 2023-1 Yes [id number] 12.5mg Take 0.5 Univers one 25 mg 1-11 tablets by ity of tablet 00:00: mouth in [place] the Medical morning. Branch spironolact 2022-05 Yes [id number] 12.5mg Take 0.5 Univers one 25 mg 1-11 tablets by ity of tablet 00:00: mouth in [place] the Medical morning. Branch spironolact 2022-05 Yes [id number] 12.5mg Take 0.5 Univers one 25 mg 1-11 tablets by ity of tablet 00:00: mouth in [place] the Medical morning. Branch spironolact 2022-05 Yes [id number] 12.5mg Take 0.5 Univers one 25 mg 1-11 tablets by ity of tablet 00:00: mouth in [place] the Medical morning. Branch spironolact 2022-05 Yes [id number] 12.5mg Take 0.5 Univers one 25 mg 1-11 tablets by ity of tablet 00:00: mouth in [place] the Medical morning. Branch spironolact 2022-05 Yes [id number] 12.5mg Take 0.5 Univers one 25 mg 1-11 tablets by ity of tablet 00:00: mouth in [place] the Medical morning. Branch spironolact 2022-05 Yes [id number] 12.5mg Take 0.5 Univers one 25 mg 1-11 tablets by ity of tablet 00:00: mouth in [place] the Medical morning. [place] iopamidol 2022-05- No [id number] 120mL 120 mL, Univers (ISOVUE 1-10 11-10 Intravenou ity o f 370-500 mL) 20:08: 20:08 s, ONCE, 1 [place] injection 00 :00 dose, On Medica l 120 mL Fri [place] 03/28/23 at 1430, Routine carvediloL 2022-05- No 3.125mg 3.125 mg, Univers (COREG) 1-10 11-10 Oral, ity of tablet 17:15: 16:31 ONCE, 1 [place] 3.125 mg 00 :00 dose, On Medical Fri [place] 03/28/23 at 1115, Routine KCL 2022-05- No 40meq 40 mEq, Univers (KLOR-CON -10 11-10 Oral, ity of M20) tablet 17:00: 16:18 ONCE[place] 1 [place] 40 mEq 00 :00 dose, On Medical Fri Branch 03/28/23 at 1100, Routine apixaban 2022-05 Yes 5mg 5 mg, Univers (ELIQUIS) 1-10 Oral, BID, ity of tablet 5 mg 16:00: First dose [place] 00 on Fri Medical 03/28/23 Branch at 1000, Until Discontinu ed, Routine
Indicatio ns: Non-Valvul ar Atrial Fibrillati on sennosides- 2022-05 Yes 1{tbl} 1 tablet, Univers docusate 1-10 Oral, ity of sodium 15:00: DAILY, (SENOKOT-S) 00 First dose Me dical 8.6-50 mg on Fri Branch per tablet 03/28/23 1 tablet at 0900, Until Discontinu ed, Routine KCL 2022-05 No 40meq 40 mEq, Univers (KLOR-CON 1-10 11-10 Oral, ity of M20) tablet 13:00: 14:30 ONCE[place] 1 [place] 40 mEq 00 :00 dose, On Medical Fri Branch 03/28/23 at 0800, Routine metformin 2022-05- No 500mg Take 500 Un winter HCl 1-10 11-10 mg by ity of (METFORMIN 10:22: 00:00 mouth 2 [place] as ORAL) 29 :00 (two) Medical times Branch daily with meals. metformin 2022-05 No 500mg Take 500 Un winter HCl 1-10 11-10 mg by ity of (METFORMIN 10:22: 00:00 mouth 2 [place] as ORAL) 29 :00 (two) Medical times Branch daily with meals. sacubitriL- 2022-05- No 1{tbl} Take 1 U nivers valsartan 1-10 11-10 tablet by ity of 49-51 mg 10:22: 00:00 [place] tablet 25 :00 the Medical morning Branch and 1 tablet in the evening. sacubitriL- 2022-05- No 1{tbl} Take 1 U nivers valsartan 1-10 11-10 tablet by ity of 49-51 mg 10:22: 00:00 [place] tablet 25 :00 the Medical morning Branch and 1 tablet in the evening. amiodarone 2022-05 Yes 400mg 400 mg, Uni vers (PACERONE) 1-10 Oral, BID, ity of tablet 400 02:00: First dose [place] 00 on [facility] 03/27/23 at [place] 1999, Until Discontinu ed, Routine bumetanide 2022-05 Yes 1mg 1 mg, Univer s (BUMEX) 1-10 Oral, BID, ity of tablet 1 mg 02:00: First dose [place] 00 on [facility] 03/27/23 at [place] 1999, Until Discontinu ed, Routine apixaban 5 2022-05 Yes 1358 5mg Take 1 Unive rs mg tablet 1-10 tablet by ity o f 00:00: mouth in [address] and 1 tablet in the evening. Indication s: atrial fibrillati on sacubitriL- 2022-05 Yes [id number] 1{tbl} Take 1 Univers valsartan 1-10 tablet by ity o f 24-26 mg 00:00: mouth in [address] and 1 tablet in the evening. carvediloL 2022-05 Yes [id number] 3.125mg Take 1 Univers 3.125 mg 1-10 tablet by ity of tablet 00:00: mouth in [address] and 1 tablet in the evening. Take with meals. bumetanide 2022-05 Yes [id number] 1mg Take 1 Univers 1 mg tablet 1-10 tablet by ity of 00:00: mouth in [address] and 1 tablet in the evening. metFORMIN 2022-05 Yes [id number] 500mg Take 1 Univers 500 mg 1-10 tablet by ity of tablet 00:00: mouth in [address] and 1 tablet in the evening. Take with meals. KCL 20 mEq 2022-05 Yes [id number] 40meq Take 2 Univers tablet 1-10 tablets by ity of 00:00: mouth in [place] [address] the [facility]. [place] amiodarone 2022-05 Yes [id number] Take 2 Univers 200 mg 1-10 tablets by ity of tablet 00:00: mouth in [address] and 2 tablets in the evening for a total of 6 days, then take 1 tablet in the morning and 1 tablet in the evening for 7 days, then take 1 tablet once a day for 30 days. apixaban 5 2022-05 Yes 1358 5mg Take 1 Unive rs mg tablet 1-10 tablet by ity o f 00:00: mouth in [place] [address] the [facility] and 1 tablet in the evening. Indication s: atrial fibrillati on sacubitriL- 2022-05 Yes [id number] 1{tbl} Take 1 Univers valsartan 1-10 tablet by ity o f 24-26 mg 00:00: mouth in [place] tablet 00 the [facility] and 1 tablet in the evening. carvediloL 2022-05 Yes [id number] 3.125mg Take 1 Univers 3.125 mg 1-10 tablet by ity of tablet 00:00: mouth in [address] and 1 tablet in the evening. Take with meals. bumetanide 2022-05 Yes [id number] 1mg Take 1 Univers 1 mg tablet 1-10 tablet by ity of 00:00: mouth in [address] and 1 tablet in the evening. metFORMIN 2022-05 Yes [id number] 500mg Take 1 Univers 500 mg 1-10 tablet by ity of tablet 00:00: mouth in [address] and 1 tablet in the evening. Take with meals. KCL 20 mEq 2022-05 Yes [id number] 40meq Take 2 Univers tablet 1-10 tablets by ity of 00:00: mouth in [place] [address] the [facility]. Branch amiodarone 2022-05 Yes [id number] Take 2 Univers 200 mg 1-10 tablets by ity of tablet 00:00: mouth in [place] [address] the [facility] and 2 tablets in the evening for a total of 6 days, then take 1 tablet in the morning and 1 tablet in the evening for 7 days, then take 1 tablet once a day for 30 days. apixaban 5 2022-05 Yes 1358 5mg Take 1 Unive rs mg tablet 1-10 tablet by ity o f 00:00: mouth in [address] and 1 tablet in the evening. Indication s: atrial fibrillati on sacubitriL- 2022-05 Yes [id number] 1{tbl} Take 1 Univers valsartan 1-10 tablet by ity o f 24-26 mg 00:00: mouth in [address] and 1 tablet in the evening. carvediloL 2022-05 Yes [id number] 3.125mg Take 1 Univers 3.125 mg 1-10 tablet by ity of tablet 00:00: mouth in [address] and 1 tablet in the evening. Take with meals. bumetanide 2022-05 Yes [id number] 1mg Take 1 Univers 1 mg tablet 1-10 tablet by ity of 00:00: mouth in [address] and 1 tablet in the evening. metFORMIN 2022-05 Yes [id number] 500mg Take 1 Univers 500 mg 1-10 tablet by ity of tablet 00:00: mouth in [address] and 1 tablet in the evening. Take with meals. KCL 20 mEq 2022-05 Yes [id number] 40meq Take 2 Univers tablet 1-10 tablets by ity of 00:00: mouth in [address] Branch amiodarone 2022-05 Yes [id number] Take 2 Univers 200 mg 1-10 tablets by ity of tablet 00:00: mouth in [address] and 2 tablets in the evening for a total of 6 days, then take 1 tablet in the morning and 1 tablet in the evening for 7 days, then take 1 tablet once a day for 30 days. apixaban 5 2022-05 Yes 1358 5mg Take 1 Unive rs mg tablet 1-10 tablet by ity o f 00:00: mouth in [address] and 1 tablet in the evening. Indication s: atrial fibrillati on sacubitriL- 2022-05 Yes [id number] 1{tbl} Take 1 Univers valsartan 1-10 tablet by ity o f 24-26 mg 00:00: mouth in [address] and 1 tablet in the evening. carvediloL 2022-05 Yes [id number] 3.125mg Take 1 Univers 3.125 mg 1-10 tablet by ity of tablet 00:00: mouth in [address] and 1 tablet in the evening. Take with meals. bumetanide 2022-05 Yes [id number] 1mg Take 1 Univers 1 mg tablet 1-10 tablet by ity of 00:00: mouth in [address] and 1 tablet in the evening. metFORMIN 2022-05 Yes [id number] 500mg Take 1 Univers 500 mg 1-10 tablet by ity of tablet 00:00: mouth in [place] [address] the [facility] morning [place] and 1 tablet in the evening. Take with meals. KCL 20 mEq 2022-05 Yes [id number] 40meq Take 2 Univers tablet 1-10 tablets by ity of 00:00: mouth in [place] [address] the . Branch amiodarone 2022-05 Yes [id number] Take 2 Univers 200 mg 1-10 tablets by ity of tablet 00:00: mouth in [place] [address] the [facility] [place] and 2 tablets in the evening for a total of 6 days, then take 1 tablet in the morning and 1 tablet in the evening for 7 days, then take 1 tablet once a day for 30 days. apixaban 5 2022-05 Yes 1358 5mg Take 1 Unive rs mg tablet 1-10 tablet by ity o f 00:00: mouth in [address] and 1 tablet in the evening. Indication s: atrial fibrillati on sacubitriL- 2022-05 Yes [id number] 1{tbl} Take 1 Univers valsartan 1-10 tablet by ity o f 24-26 mg 00:00: mouth in [address] and 1 tablet in the evening. carvediloL 2022-05 Yes [id number] 3.125mg Take 1 Univers 3.125 mg 1-10 tablet by ity of tablet 00:00: mouth in [address] and 1 tablet in the evening. Take with meals. bumetanide 2022-05 Yes [id number] 1mg Take 1 Univers 1 mg tablet 1-10 tablet by ity of 00:00: mouth in [place] [address] the [facility] and 1 tablet in the evening. metFORMIN 2022-05 Yes [id number] 500mg Take 1 Univers 500 mg 1-10 tablet by ity of tablet 00:00: mouth in [address] and 1 tablet in the evening. Take with meals. KCL 20 mEq 2022-05 Yes [id number] 40meq Take 2 Univers tablet 1-10 tablets by ity of 00:00: mouth in [place] [address] the . Branch amiodarone 2022-05 Yes [id number] Take 2 Univers 200 mg 1-10 tablets by ity of tablet 00:00: mouth in [address] and 2 tablets in the evening for a total of 6 days, then take 1 tablet in the morning and 1 tablet in the evening for 7 days, then take 1 tablet once a day for 30 days. apixaban 5 2022-05 Yes 1358 5mg Take 1 Unive rs mg tablet 1-10 tablet by ity o f 00:00: mouth in [place] [address] the [facility] and 1 tablet in the evening. Indication s: atrial fibrillati on sacubitriL- 2022-05 Yes [id number] 1{tbl} Take 1 Univers valsartan 1-10 tablet by ity o f 24-26 mg 00:00: mouth in [facility] 00 the [facility] and 1 tablet in the evening. carvediloL 2022-05 Yes [id number] 3.125mg Take 1 Univers 3.125 mg 1-10 tablet by ity of tablet 00:00: mouth in [place] [address] the [facility] and 1 tablet in the evening. Take with meals. bumetanide 2022-05 Yes [id number] 1mg Take 1 Univers 1 mg tablet 1-10 tablet by ity of 00:00: mouth in [place] [address] the [facility] and 1 tablet in the evening. metFORMIN 2022-05 Yes [id number] 500mg Take 1 Univers 500 mg 1-10 tablet by ity of tablet 00:00: mouth in [address] and 1 tablet in the evening. Take with meals. KCL 20 mEq 2022-05 Yes [id number] 40meq Take 2 Univers tablet 1-10 tablets by ity of 00:00: mouth in [place] [address] the [facility]. Branch amiodarone 2022-05 Yes [id number] Take 2 Univers 200 mg 1-10 tablets by ity of tablet 00:00: mouth in [place] [address] the [facility] and 2 tablets in the evening for a total of 6 days, then take 1 tablet in the morning and 1 tablet in the evening for 7 days, then take 1 tablet once a day for 30 days. apixaban 5 2022-05 Yes 1358 5mg Take 1 Unive rs mg tablet 1-10 tablet by ity o f 00:00: mouth in [address] and 1 tablet in the evening. Indication s: atrial fibrillati on sacubitriL- 2022-05 Yes [id number] 1{tbl} Take 1 Univers valsartan 1-10 tablet by ity o f 24-26 mg 00:00: mouth in [place] tablet 00 the [facility] Branch and 1 tablet in the evening. carvediloL 2022-05 Yes [id number] 3.125mg Take 1 Univers 3.125 mg 1-10 tablet by ity of tablet 00:00: mouth in [place] 00 the [facility] and 1 tablet in the evening. Take with meals. bumetanide 2022-05 Yes [id number] 1mg Take 1 Univers 1 mg tablet 1-10 tablet by ity of 00:00: mouth in [place] [address] the [facility] and 1 tablet in the evening. metFORMIN 2022-05 Yes [id number] 500mg Take 1 Univers 500 mg 1-10 tablet by ity of tablet 00:00: mouth in [place] [address] the [facility] and 1 tablet in the evening. Take with meals. KCL 20 mEq 2022-05 Yes [id number] 40meq Take 2 Univers tablet 1-10 tablets by ity of 00:00: mouth in [place] [address] the [facility]. Branch amiodarone 2022-05 Yes [id number] Take 2 Univers 200 mg 1-10 tablets by ity of tablet 00:00: mouth in [place] [address] the [facility] and 2 tablets in the evening for a total of 6 days, then take 1 tablet in the morning and 1 tablet in the evening for 7 days, then take 1 tablet once a day for 30 days. apixaban 5 2022-05 Yes [id number] 5mg Take 1 Unive rs mg tablet 1-10 tablet by ity o f 00:00: mouth in [address] and 1 tablet in the evening. Indication s: atrial fibrillati on sacubitriL- 2022-05 Yes [id number] 1{tbl} Take 1 Univers valsartan 1-10 tablet by ity o f 24-26 mg 00:00: mouth in [facility] 00 [facility] and 1 tablet in the evening. carvediloL 2022-05 Yes [id number] 3.125mg Take 1 Univers 3.125 mg 1-10 tablet by ity of tablet 00:00: mouth in [address] and 1 tablet in the evening. Take with meals. bumetanide 2022-05 Yes [id number] 1mg Take 1 Univers 1 mg tablet 1-10 tablet by ity of 00:00: mouth in [place] 00 the Medical morning Branch and 1 tablet in the evening. metFORMIN 2022-05 Yes [id number] 500mg Take 1 Univers 500 mg 1-10 tablet by ity of tablet 00:00: mouth in [place] 00 the Medical morning Branch and 1 tablet in the evening. Take with meals. KCL 20 mEq 2022-05 Yes [id number] 40meq Take 2 Univers tablet 1-10 tablets by ity of 00:00: mouth in [place] 00 the Medical morning. Branch amiodarone 2022-05 Yes [id number] Take 2 Univers 200 mg 1-10 tablets by ity of tablet 00:00: mouth in [place] [address] the Medical morning Branch and 2 tablets in the evening for a total of 6 days, then take 1 tablet in the morning and 1 tablet in the evening for 7 days, then take 1 tablet once a day for 30 days. traMADoL 50 2022-05- Yes [id number] 50mg Take 1 Uni vers mg tablet 1-10 11-18 tablet by ity of 00:00: 05:59 mouth [place] 00 :00 every 6 Medical (six) Branch hours as needed for Pain (scale 4-6) for up to 7 days. Indication s: acute pain traMADoL 50 2022-05- Yes [id number] 50mg Take 1 Uni vers mg tablet 1-10 11-18 tablet by ity of 00:00: 05:59 mouth [place] 00 :00 every 6 Medical (six) Branch hours as needed for Pain (scale 4-6) for up to 7 days. Indication s: acute pain traMADoL 50 2022-05- Yes [id number] 50mg Take 1 Uni vers mg tablet 1-10 11-18 tablet by ity of 00:00: 05:59 mouth [place] 00 :00 every 6 Medical (six) Branch hours as needed for Pain (scale 4-6) for up to 7 days. Indication s: acute pain traMADoL 50 2022-05- Yes [id number] 50mg Take 1 Uni vers mg tablet 1-10 11-18 tablet by ity of 00:00: 05:59 mouth [place] 00 :00 every 6 Medical (six) Branch hours as needed for Pain (scale 4-6) for up to 7 days. Indication s: acute pain traMADoL 50 2022-05- Yes [id number] 50mg Take 1 Uni vers mg tablet 1-10 11-18 tablet by ity of 00:00: 05:59 mouth [place] 00 :00 every 6 Medical (six) Branch hours as needed for Pain (scale 4-6) for up to 7 days. Indication s: acute pain traMADoL 50 2022-05- Yes [id number] 50mg Take 1 Uni vers mg tablet 1-10 11-18 tablet by ity of 00:00: 05:59 mouth [place] 00 :00 every 6 Medical (six) Branch hours as needed for Pain (scale 4-6) for up to 7 days. Indication s: acute pain traMADoL 50 2022-05- Yes [id number] 50mg Take 1 Uni vers mg tablet 1-10 11-18 tablet by ity of 00:00: 05:59 mouth [place] 00 :00 every 6 Medical (six) Branch hours as needed for Pain (scale 4-6) for up to 7 days. Indication s: acute pain traMADoL 50 2022-05- Yes [id number] 50mg Take 1 Uni vers mg tablet 1-10 11-18 tablet by ity of 00:00: 05:59 mouth [place] 00 :00 every 6 Medical (six) Branch hours as needed for Pain (scale 4-6) for up to 7 days. Indication s: acute pain cephALEXin 2022-05- Yes [id number] 500mg Take 1 Univers 500 mg 1-10 11-16 capsule by ity of capsule 00:00: 05:59 mouth 4 [place] 00 :00 (four) Medical times Branch daily for 5 days. cephALEXin 2022-05- Yes [id number] 500mg Take 1 Univers 500 mg 1-10 11-16 capsule by ity of capsule 00:00: 05:59 mouth 4 [place] 00 :00 (four) Medical times Branch daily for 5 days. cephALEXin 2022-05- Yes [id number] 500mg Take 1 Univers 500 mg 1-10 11-16 capsule by ity of capsule 00:00: 05:59 mouth 4 [place] 00 :00 (four) Medical times Branch daily for 5 days. cephALEXin 2022-05- Yes [id number] 500mg Take 1 Univers 500 mg 1-10 11-16 capsule by ity of capsule 00:00: 05:59 mouth 4 [place] 00 :00 (four) Medical times Branch daily for 5 days. cephALEXin 2022-05- Yes [id number] 500mg Take 1 Univers 500 mg 1-10 11-16 capsule by ity of capsule 00:00: 05:59 mouth 4 [place] 00 :00 (four) Medical times Branch daily for 5 days. amiodarone 2022-05- No [id number] 200mg Take 1 Univers 200 mg 1-10 11-10 tablet by ity of tablet 00:00: 00:00 mouth in [place] 00 :00 the Medical morning Branch and 1 tablet in the evening. Do all this for 7 days. Take 2 tablets by mouth in the morning and 2 tablets in the evening for a total of 6 days, then take 1 tablet in the morning and 1 tablet in the evening for 7 days, then take 1 tablet once a day for 30 days. amiodarone 2022-05 No [id number] 200mg Take 1 Univers 200 mg 1-10 11-10 tablet by ity of tablet 00:00: 00:00 mouth in [place] 00 :00 the [facility] morning Branch and 1 tablet in the evening. Take 2 tablets by mouth in the morning and 2 tablets in the evening for a total of 6 days, then take 1 tablet in the morning and 1 tablet in the evening for 7 days, then take 1 tablet once a day for 30 days. traMADoL 2022-05 Yes 50mg 50 mg, Univers (ULTRAM) 1-09 Oral, ity of tablet 50 22:47: Q6HPRN, [place] mg 10 Starting Medical on Na Branch 03/27/23 at 1647, Until Discontinu ed, Routine, Pain (scale 4-6) HYDROcodone 2022-05 Yes 1{tbl} 1 tablet, Univers -acetaminop -09 Oral, ity of hen (NORCO 22:46: Q6HPRN, [place] 5) 5-325 mg 59 Starting Medi merlyn tablet 1 on Na Branch tablet 03/27/23 at 1646, Until Discontinu ed, Routine, Pain (scale 7-10) HEPARIN 2022-05- No 4000U 4,000 Univers SODIUM -09 11-10 Units, IV ity of (PORCINE) 22:45: 01:51 Push, [place] 1,000 00 :00 ONCE, 1 Medical UNIT/ML dose, On Branch BOLUS ACS Na ORDER SET 03/27/23 at 1645, YAZ heparin 2022-05- No 0U/h 0-2,750 Univer s 25,000 1-09 11-10 Units/hr ity of Units/250 22:39: 14:26 (0-27.5 [place] mL 44 :58 mL/hr), IV Medical (Premixed Infusion, Branc h Bag) in TITRATE, 0.45 % NS Parameters in Admin. Instr., Starting on Na 03/27/23 at 1639
In itiate dosing:&nb sp; & nbsp;&nbsp ; -Patient 83 kg or under: 1,000 Units/hr (Calculate d dose at 12 units/kg/h r) &n bsp; &nbs p; -Patient over 83 k,000 units/hr&n bsp;DO NOT Exceed the MAXIMUM 1,000 units/hr for initiation of heparin drip.&nbsp ; CAU TION - If LMWH given in ER, AVOID bolus and start next dose/drip 12 hrs after ER dosage.&nb sp; M ust program rate using programmab le infusion pump.&nbsp ; Chrissy ck with the ordering provider first prior to any administra tion should the patient be on existing/a dditional anticoagul ant therapy. Rang e, Dosing and Testing: &nbs p;FOR [facility], [facility], AND [facility] ONLY &nbs p; - aPTT < 35: & nbsp;Bolus 5000 units, increase rate 300 units/hr&n bsp; - aPTT 35-44:&nbs p; Tommy joana 3000 units, increase rate 200 units/hr&n bsp; - aPTT 45-54:&nbs p; In crease rate 100 units/hr&n bsp; - aPTT 55-85:&nbs p; NO CHANGE&nbs p; - aPTT 86-95:&nbs p; De crease rate 100 units/hr&n bsp; - aPTT 96-120:&nb sp; H old 30 minutes, decrease rate 150 units/hr&n bsp; - aPTT > 120: Hold 60 minutes, decrease rate 200 units/hr&n bsp; Check aPTT 6 hours after initiation , then Q6H after every change, aPTT Q12H once therapeuti c levels are reached.&n bsp; &nbs p; __ &n bsp;FOR [facility] ONLY - aPTT < 40: & nbsp;Bolus 5000 units, increase rate 300 units/hr&n bsp; - aPTT 40-49:&amp ;nbsp;&nbs p;Bolus 3000 units, increase rate 200 units/hr&n bsp; - aPTT 50-59:&nbs p;&nbs p;Increase rate 100 units/hr&n bsp; - aPTT 60-85:&nbs p; NO CHANGE&nbs p; - aPTT 86-95:&nbs p; De crease rate 100 units/hr&n bsp; - aPTT 96-120:&nb sp; H old 30 minutes, decrease rate 150 units/hr&n bsp; - aPTT > 120: Hold 60 minutes, decrease rate 200 units/hr&n bsp; Check aPTT 6 hours after initiation , then Q6H after every change, aPTT Q12H once therapeuti c levels are reached.&n bsp; DO NOT ADJUST INITIAL BOLUS OR INITIAL INFUSION RATE.
sulfur 2022-2022- No [id number] 5mL [facility] hexafluorid 05-27 Intravenou i ty of e microsphr 20:15: 20:00 s, ONCE, 1 [place] (LUMASON) 00 :00 dose, On Medica l injection 5 Na Branch mL 03/27/23 at 1415, Routine
[place] tribunal member approving Restricted medication : RAGHAV PLASCENCIA MANDY FISHER Sliding 2022-05 Yes Subcutaneo Univ ers Scale 05-27 us, TID ity of Insulin - 18:00: MEALS+HS, [place] as Lispro 00 First dose Medical (HumaLOG) on Na Branch 03/27/23 at 1200, Until Discontinu ed, Routine KCL 2022-05- No 40meq 40 mEq, Univers (KLOR-CON 05-27 Oral, ity of M20) tablet 18:00: 20:38 ONCE, 1 [place] 40 mEq 00 :00 dose, On Medical Na Branch 03/27/23 at 1200, Routine glucagon 2022-05 Yes 1mg 1 mg, Univers (GLUCAGEN 05-27 Intramuscu ity of DIAGNOSTIC 17:36: lar, PRN, [place] KIT) 03 Starting Medical injection 1 on Na Branch mg 03/27/23 at 1136, Until Discontinu ed, YAZ, Blood Glucose < or = 70 mg/dL and patient is NPO, unable to swallow or has mental changes. dextrose 50 2022-05 Yes 25mL 25 mL, Univ ers % in water 05-27 Slow IV ity of (D50W) 17:36: Push, PRN, [place] injection 03 Starting Medica l 25 mL on Na Branch 03/27/23 at 1136, Until Discontinu ed, YAZ, Blood Glucose < or = 70 mg/dL and patient is NPO, unable to swallow or has mental status changes. acetaminoph 2022-05 Yes 650mg 650 mg, Un winter en 05-27 Oral, ity of (TYLENOL) 17:24: Q6HPRN, [place] tablet 650 58 Starting Medic al mg on Na Branch 03/27/23 at 1124, Until Discontinu ed, Routine, Pain (scale 1-3) ceFAZolin 2022-05- Yes 1000mg 1,000 mg, Univers (ANCEF) 05-27 11-14 Intravenou ity o f 1,000 mg in 16:45: 16:44 s, Q8H [place] as NaCl 0.9% 00 :00 ABX, 15 Medical (NS) 100 mL doses, Branch MINI-BAG First dose on Fri03/27/23 at 1045, Last dose on Fri04/01/23 at 0245, Administer over 30 Minutes, 100 mL
Reas on for Anti-Infec tive: Documented Infection< br>Documen bright Infection Site: Skin / Soft Tissue
Duration of Therapy: 7 days spironolact 2022-05 Yes 12.5mg 12.5 mg, Univers one 05-27 Oral, ity of (ALDACTONE) 15:45: DAILY, [place] tablet 12.5 00 First dose Me dical mg (after Branch last modificati on) on Fri03/27/23 at 0945, Until Discontinu ed, Routine sacubitriL- 2022-05 Yes 1{tbl} 1 tablet, [facility] valsartan 05-27 Oral, BID, ity of (ENTRESTO) 15:45: First dose [place] 24-26 mg 00 (after Medical tablet 1 last Branch tablet modificati on) on Fri03/27/23 at 0945, Until Discontinu ed, Routine
[place] tribunal member approving Restricted medication : WOOD ALMANZA carvediloL 2022-05 Yes 3.125mg 3.125 mg, [facility] (COREG) 05-27 Oral, BID ity of tablet 15:45: MEALS, [place] 3.125 mg 00 First dose Medic al (after Branch last modificati on) on Fri03/27/23 at 0945, Until Discontinu ed, Routine aspirin EC 2022-05 Yes 81mg 81 mg, Unive rs tablet 81 05-27 Oral, ity of mg 15:00: DAILY, [place] 00 First dose Medical on Na Branch 03/27/23 at 0900, Until Discontinu ed, Routine empaglifloz 2022-05 Yes 10mg 10 mg, Univ ers in 05-27 Oral, ity of (JARDIANCE) 15:00: DAILY, [place] tablet 10 00 First dose Medi merlyn mg on Fri Branch 03/27/23 at 0900, Until Discontinu ed, Routine
Is this a home medication ? Yes
Has this patient brought their own medication ? No
Courtney rojas will dispense the medication from inpatient. Pharmacy will dispense the medication from inpatient.
Inpati ent ordering of this medication is not allowed unless the patient is maintained on this medication at home, and home supply is unavailabl e. Does this order meet the criteria for inpatient ordering? Yes iopamidol 2022-05- No [id number] 100mL 100 mL, Univers (ISOVUE 05-21 Intravenou ity o f 370-500 mL) 19:26: 19:27 s, ONCE, 1 [place] injection 00 :00 dose, On Medica l 100 mL Fri Branch 03/21/23 at 1445, Routine glimepiride 2022-05 No 2mg Take 1 Uni vers 2 mg tablet 05-20 tablet by it y of 15:27: 00:00 mouth [place] 53 :00 daily with Medical breakfast. Branch glimepiride 2022-05 No 2mg Take 1 Uni vers 2 mg tablet 05-20 tablet by it y of 15:27: 00:00 mouth [place] 53 :00 daily with Medical breakfast. Branch glimepiride 2022-05 No 2mg Take 1 Uni vers 2 mg tablet 05-20 tablet by it y of 15:27: 00:00 mouth [place] 53 :00 daily with Medical breakfast. [place] JARDIANCE 2022-05 Yes [id number] Take 1 U nivers 10 mg 0-26 tablet by ity of 00:00: mouth once [place] 00 daily [facility] JARDIANCE 2022-05 Yes [id number] Take 1 U nivers 10 mg 0-26 tablet by ity of 00:00: mouth once [place] 00 daily Medical [place] JARDIANCE 2022-05 Yes [id number] Take 1 U nivers 10 mg 0-26 tablet by ity of 00:00: mouth once [place] 00 daily Medical [place] JARDIANCE 2022-05 Yes [id number] Take 1 U nivers 10 mg 0-26 tablet by ity of 00:00: mouth once [place] 00 daily [facility] JARDIANCE 2022-05 Yes [id number] Take 1 U nivers 10 mg 0-26 tablet by ity of 00:00: mouth once [place] daily Medical Branch JARDIANCE 2022-05 Yes [id number] Take 1 U nivers 10 mg 0-26 tablet by ity of 00:00: mouth once [place] daily Medical Branch JARDIANCE 2022-05 Yes [id number] Take 1 U nivers 10 mg 0-26 tablet by ity of 00:00: mouth once [place] daily Medical Branch JARDIANCE 2022-05 Yes [id number] Take 1 U nivers 10 mg 0-26 tablet by ity of 00:00: mouth once [place] daily Medical Branch JARDIANCE 2022-05 Yes [id number] Take 1 U nivers 10 mg 0-26 tablet by ity of 00:00: mouth once [place] daily Medical Branch JARDIANCE 2022-05 Yes [id number] Take 1 U nivers 10 mg 0-26 tablet by ity of 00:00: mouth once [place] daily Medical Branch JARDIANCE 2022-05 Yes [id number] Take 1 U nivers 10 mg 0-26 tablet by ity of 00:00: mouth once [place] daily Medical Branch JARDIANCE 2022-05 Yes [id number] Take 1 U nivers 10 mg 0-26 tablet by ity of 00:00: mouth once [place] daily Medical Branch JARDIANCE 2022-05 Yes [id number] Take 1 U nivers 10 mg 0-26 tablet by ity of 00:00: mouth once [place] daily Medical Branch JARDIANCE 2022-05 Yes [id number] Take 1 U nivers 10 mg 0-26 tablet by ity of 00:00: mouth once [place] daily Medical Branch JARDIANCE 2022-05 Yes [id number] Take 1 U nivers 10 mg 0-26 tablet by ity of 00:00: mouth once [place] daily Medical Branch JARDIANCE 2022-05 Yes [id number] Take 1 U nivers 10 mg 0-26 tablet by ity of 00:00: mouth once [place] daily Medical Branch JARDIANCE 2022-05 Yes [id number] Take 1 U nivers 10 mg 0-26 tablet by ity of 00:00: mouth once [place] daily Medical Branch JARDIANCE 2022-05 Yes [id number] Take 1 U nivers 10 mg 0-26 tablet by ity of 00:00: mouth once [place] daily Medical Branch JARDIANCE 2022-05 Yes [id number] Take 1 U nivers 10 mg 0-26 tablet by ity of 00:00: mouth once [place] daily Medical Branch JARDIANCE 2022-05- No [id number] Take 1 Univers 10 mg 0-26 11-17 tablet by ity of 00:00: 00:00 mouth once [place] 00 :00 daily Medical Branch JARDIANCE 2022-05- No [id number] Take 1 Univers 10 mg 0-26 11-17 tablet by ity of 00:00: 00:00 mouth once [place] 00 :00 daily Medical Branch Albuterol Albuterol No 1{puff_ 6xD Albuterol Sulfate HFA Sulfate HFA 9-08 as_need Sulfate 108 (90 108 (90 00:00: ed} HFA 108 Base) Base) 00 (90 Base) MCG/ACT MCG/ACT MCG/ACT Albuterol Albuterol No 1{puff_ 6xD Albuterol Sulfate HFA Sulfate HFA 9-08 as_need Sulfate 108 (90 108 (90 00:00: ed} HFA 108 Base) Base) 00 (90 Base) MCG/ACT MCG/ACT MCG/ACT Albuterol Albuterol No 1{puff_ 6xD Albuterol Sulfate HFA Sulfate HFA 9-08 as_need Sulfate 108 (90 108 (90 00:00: ed} HFA 108 Base) Base) 00 (90 Base) MCG/ACT MCG/ACT MCG/ACT Albuterol Albuterol No 1{puff_ 6xD Albuterol Sulfate HFA Sulfate HFA 9-08 as_need Sulfate 108 (90 108 (90 00:00: ed} HFA 108 Base) Base) 00 (90 Base) MCG/ACT MCG/ACT MCG/ACT Albuterol Albuterol No 1{puff_ 6xD Albuterol Sulfate HFA Sulfate HFA 9-08 as_need Sulfate 108 (90 108 (90 00:00: ed} HFA 108 Base) Base) 00 (90 Base) MCG/ACT MCG/ACT MCG/ACT Albuterol Albuterol No 1{puff_ 6xD Albuterol Sulfate HFA Sulfate HFA 9-08 as_need Sulfate 108 (90 108 (90 00:00: ed} HFA 108 Base) Base) 00 (90 Base) MCG/ACT MCG/ACT MCG/ACT Albuterol Albuterol 2022-0 No 1{puff_ 6xD Albuterol Sulfate HFA Sulfate HFA 9-08 as_need Sulfate 108 (90 108 (90 00:00: ed} HFA 108 Base) Base) 00 (90 Base) MCG/ACT MCG/ACT MCG/ACT Albuterol Albuterol 0 No 1{puff_ 6xD Albuterol Sulfate HFA Sulfate HFA 9-08 as_need Sulfate 108 (90 108 (90 00:00: ed} HFA 108 Base) Base) 00 (90 Base) MCG/ACT MCG/ACT MCG/ACT Albuterol Albuterol 0 No 1{puff_ 6xD Albuterol Sulfate HFA Sulfate HFA 9-08 as_need Sulfate 108 (90 108 (90 00:00: ed} HFA 108 Base) Base) 00 (90 Base) MCG/ACT MCG/ACT MCG/ACT Albuterol Albuterol 2022-0 No 1{puff_ 6xD Albuterol Sulfate HFA Sulfate HFA 9-08 as_need Sulfate 108 (90 108 (90 00:00: [...] 10 x 100MG 100MG 100MG Paxlovid Paxlovid 2023-0 No 3{table BID Paxlovid (300/100) (300/100) 01-17 ts} (300/100) 20 x 150 MG 20 x 150 MG 00:00: 20 x 150 & 10 x & 10 x 00 MG & 10 x 100MG 100MG 100MG Paxlovid Paxlovid 2023-0 No 3{table BID Paxlovid (300/100) (300/100) 01-17 ts} (300/100) 20 x 150 MG 20 x 150 MG 00:00: 20 x 150 & 10 x & 10 x 00 MG & 10 x 100MG 100MG 100MG Paxlovid Paxlovid 2023-0 No 3{table BID Paxlovid (300/100) (300/100) 01-17 ts} (300/100) 20 x 150 MG 20 x 150 MG 00:00: 20 x 150 & 10 x & 10 x 00 MG & 10 x 100MG 100MG 100MG Paxlovid Paxlovid 2023-0 No 3{table BID Paxlovid (300/100) (300/100) 01-17 ts} (300/100) 20 x 150 MG 20 x 150 MG 00:00: 20 x 150 & 10 x & 10 x 00 MG & 10 x 100MG 100MG 100MG Paxlovid Paxlovid 3-0 No 3{table BID Paxlovid (300/100) (300/100) 01-17 ts} (300/100) 20 x 150 MG 20 x 150 MG 00:00: 20 x 150 & 10 x & 10 x 00 MG & 10 x 100MG 100MG 100MG Paxlovid Paxlovid 2023-0 No 3{table BID Paxlovid (300/100) (300/100) 01-17 ts} (300/100) 20 x 150 MG 20 x 150 MG 00:00: 20 x 150 & 10 x & 10 x 00 MG & 10 x 100MG 100MG 100MG Paxlovid Paxlovid 2023-0 No 3{table BID Paxlovid (300/100) (300/100) 01-17 ts} (300/100) 20 x 150 MG 20 x 150 MG 00:00: 20 x 150 & 10 x & 10 x 00 MG & 10 x 100MG 100MG 100MG Paxlovid Paxlovid 2023-0 No 3{table BID Paxlovid (300/100) (300/100) 9-01 ts} (300/100) 20 x 150 MG 20 x 150 MG 00:00: 20 x 150 & 10 x & 10 x 00 MG & 10 x 100MG 100MG 100MG JARDIANCE 3-0 Yes [id number] Take 1 U nivers 10 mg 6-27 tablet by ity of 00:00: mouth once [place] 00 daily Medical Branch JARDIANCE 3-0 Yes [id number] Take 1 U nivers 10 mg 6-27 tablet by ity of 00:00: mouth once [place] 00 daily Medical Branch JARDIANCE 3-0 3- No [id number] Take 1 Univers 10 mg 6-27 - tablet by ity of 00:00: 00:00 mouth once [place] 00 :00 daily Medical Branch Bupivicaine Bupivicaine 3-0 No 4mL Common [place] 6-08 Spirit 00:00: - [facility] 00 [facility] Hyalgan Hyalgan 2022-0 No 2mL Common 6-08 Spirit 00:00: - [facility] 00 [facility] Hyalgan Hyalgan 3-0 No 2mL Common 6-08 Spirit 00:00: - [facility] 00 [facility] Kenalog Kenalog 2022-0 No 1mL Common (Triamcinol (Triamcinol 6-08 S pirit one) one) 00:00: - [facility] 00 [facility] Bupivicaine Bupivicaine 3-0 No 4mL Common [place] 6-08 Spirit 00:00: - [facility] 00 [facility] [place] Hyalgan 3-0 No 2mL Common 6-08 Spirit 00:00: - [facility] 00 [facility] [place] Hyalgan 3-0 No 2mL Common 6-08 Spirit 00:00: - [facility] 00 [facility] Ken[place] Kenalog 3-0 No 1mL Common (Triamcinol (Triamcinol 6-08 S pirit one) one) 00:00: - [facility] 00 [facility] Bupivicaine Bupivicaine 3-0 No 4mL Common [place] 6-08 Spirit 00:00: - [facility] 00 [facility] Hyalgan Hyalgan 3-0 No 2mL Common 6-08 Spirit 00:00: - [facility] 00 [facility] Hyalgan Hyalgan 3-0 No 2mL Common 6-08 Spirit 00:00: - [facility] 00 [facility] Kenalog Kenalog 3-0 No 1mL Common (Triamcinol (Triamcinol 6-08 S pirit one) one) 00:00: - [facility] 00 [facility] Bupivicaine Bupivicaine 3-0 No 4mL Common [place] 6-08 Spirit 00:00: - [facility] 00 [facility] Hyalgan Hyalgan 3-0 No 2mL Common 6 Spirit 00:00: - [facility] 00 [facility] Hyalgan Hyalgan 3-0 No 2mL Common 10-24 Spirit 00:00: - [facility] 00 [facility] Kenalog Kenalog 3-0 No 1mL Common (Triamcinol (Triamcinol 6-08 S pirit one) one) 00:00: - [facility] 00 [facility] Bupivicaine Bupivicaine 3-0 No 4mL Common [place] 6-08 Spirit 00:00: - [facility] 00 [facility] Hyalgan Hyalgan 3-0 No 2mL Common 6 Spirit 00:00: - [facility] 00 [facility] Hyalgan Hyalgan 3-0 No 2mL Common 10-24 Spirit 00:00: - [facility] 00 [facility] Kenalog Kenalog 3-0 No 1mL Common (Triamcinol (Triamcinol 6-08 S pirit one) one) 00:00: - [facility] 00 [facility] Bupivicaine Bupivicaine 3-0 No 4mL Common [place] 6-08 Spirit 00:00: - [facility] 00 [facility] Hyalgan Hyalgan 3-0 No 2mL Common 608 [facility] 00:00: - [facility] 00 [facility] Hyalgan Hyalgan 3-0 No 2mL Common 608 [facility] 00:00: - [facility] 00 [facility] Kenalog Kenalog 3-0 No 1mL Common (Triamcinol (Triamcinol 6-08 S pirit one) one) 00:00: - [facility] 00 [facility] Bupivicaine Bupivicaine 2023-0 No 4mL Common [place] 6-08 Spirit 00:00: - [facility] 00 [facility] Hyalgan Hyalgan 3-0 No 2mL Common 6-08 Spirit 00:00: - [facility] 00 [facility] Hyalgan Hyalgan 3-0 No 2mL Common 6-08 Spirit 00:00: - [facility] 00 [facility] Kenalog Kenalog 3-0 No 1mL Common (Triamcinol (Triamcinol 6-08 S pirit one) one) 00:00: - [facility] 00 [facility] Bupivicaine Bupivicaine 3-0 No 4mL Common [place] 6-08 Spirit 00:00: - [facility] 00 [facility] Hyalgan Hyalgan 3-0 No 2mL Common 08 Spirit 00:00: - [facility] 00 [facility] Hyalgan Hyalgan 3-0 No 2mL Common 608 [facility] 00:00: - [facility] 00 [facility] Kenalog Kenalog 2022-0 No 1mL Common (Triamcinol (Triamcinol 6-08 S pirit one) one) 00:00: - [facility] 00 [facility] Bupivicaine Bupivicaine 3-0 No 4mL Common [place] 6-08 Spirit 00:00: - [facility] 00 [facility] Hyalgan Hyalgan 3-0 No 2mL Common 6 [facility] 00:00: - [facility] 00 [facility] Hyalgan Hyalgan 3-0 No 2mL Common 6-08 Spirit 00:00: - [facility] 00 [facility] Ken[place] Kenalog 3-0 No 1mL Common (Triamcinol (Triamcinol 6-08 S pirit one) one) 00:00: - [facility] 00 [facility] Bupivicaine Bupivicaine 3-0 No 4mL Common [place] 6-08 Spirit 00:00: - [facility] 00 [facility] Hyalgan Hyalgan 3-0 No 2mL Common 6-08 Spirit 00:00: - [facility] 00 [facility] Hyalgan Hyalgan 3-0 No 2mL Common 6-08 Spirit 00:00: - [facility] 00 [facility] Kenalog Kenalog 3-0 No 1mL Common (Triamcinol (Triamcinol 08 S pirit one) one) 00:00: - [facility]I 00 [facility] Hyalgan Hyalgan 2023-0 No 2mL Common 10-17 Spirit 00:00: - [facility] 00 [facility] Hyalgan Hyalgan 2023-0 No 2mL Common 10-17 Spirit 00:00: - [facility] 00 [facility] Hyalgan Hyalgan 2023-0 No 2mL Common 10-17 Spirit 00:00: - [facility] 00 [facility] Hyalgan Hyalgan 2023-0 No 2mL Common 10-17 Spirit 00:00: - [facility] 00 [facility] Hyalgan Hyalgan 2023-0 No 2mL Common 10-17 Spirit 00:00: - [facility] 00 [facility] Hyalgan Hyalgan 2023-0 No 2mL Common 10-17 Spirit 00:00: - CHI [facility] Hyalgan Hyalgan 2023-0 No 2mL Common 10-17 Spirit 00:00: - [facility] 00 [facility] Hyalgan Hyalgan 2023-0 No 2mL Common 10-17 Spirit 00:00: - [facility] 00 [facility] Hyalgan Hyalgan 2023-0 No 2mL Common 10-17 Spirit 00:00: - [facility] 00 [facility] Hyalgan Hyalgan 2023-0 No 2mL Common 10-17 Spirit 00:00: - [facility] 00 [facility] Hyalgan Hyalgan 2023-0 No 2mL Common 10-17 Spirit 00:00: - [facility] 00 [facility] Hyalgan Hyalgan 2023-0 No 2mL Common 10-17 Spirit 00:00: - [facility] 00 [facility] Hyalgan Hyalgan 2023-0 No 2mL Common 10-17 Spirit 00:00: - [facility] 00 [facility] Hyalgan Hyalgan 2023-0 No 2mL Common 10-17 Spirit 00:00: - [facility] 00 [facility] Hyalgan Hyalgan 2023-0 No 2mL Common 10-17 Spirit 00:00: - [facility] 00 [facility] Hyalgan Hyalgan 2023-0 No 2mL Common 10-17 Spirit 00:00: - [facility] 00 [facility] Hyalgan Hyalgan 2023-0 No 2mL Common 10-17 Spirit 00:00: - [facility] 00 [facility] Hyalgan Hyalgan 3-0 No 2mL Common 10-17 Spirit 00:00: - [facility] Hyalgan Hyalgan 3-0 No 2mL Common 10-17 Spirit 00:00: - [facility] Hyalgan Hyalgan 3-0 No 2mL Common 10-17 Spirit 00:00: - [facility] sacubitriL- 2023-0 Yes 1{tbl} Take 1 Un [...] Branch and 1 tablet in the evening. Hyalgan Hyalgan 2022-0 No 2mL Common 5-25 Spirit 00:00: - [facility] 00 [facility] Hyalgan Hyalgan 2022-0 No 2mL Common 5-25 Spirit 00:00: - [facility] 00 [facility] Bupivicaine Bupivicaine 2022-0 No 4mL Common Wauseon Wauseon 5-25 Spirit 00:00: - [facility] 00 [facility] Kenalog Kenalog 2022-0 No 1mL Common (Triamcinol (Triamcinol 5-25 S pirit one) one) 00:00: - [facility] 00 [facility] Hyalgan Hyalgan 2022-0 No 2mL Common 5-25 Spirit 00:00: - [facility] 00 [facility] Hyalgan Hyalgan 2022-0 No 2mL Common 5-25 Spirit 00:00: - [facility] 00 [facility] Bupivicaine Bupivicaine 2022-0 No 4mL Common Wauseon Wauseon 5-25 Spirit 00:00: - [facility] 00 [facility] Kenalog Kenalog 2022-0 No 1mL Common (Triamcinol (Triamcinol 5-25 S pirit one) one) 00:00: - [facility] 00 [facility] Hyalgan Hyalgan 3-0 No 2mL Common 5-25 Spirit 00:00: - [facility] 00 [facility] Hyalgan Hyalgan 3-0 No 2mL Common 5-25 Spirit 00:00: - [facility] 00 [facility] Bupivicaine Bupivicaine 3-0 No 4mL Common Wauseon Wauseon 5-25 Spirit 00:00: - [facility] 00 [facility] Kenalog Kenalog 2022-0 No 1mL Common (Triamcinol (Triamcinol 5-25 S pirit one) one) 00:00: - [facility] 00 [facility] Hyalgan Hyalgan 3-0 No 2mL Common 5-25 Spirit 00:00: - [facility] 00 [facility] Hyalgan Hyalgan 3-0 No 2mL Common 5-25 Spirit 00:00: - [facility] 00 [facility] Bupivicaine Bupivicaine 3-0 No 4mL Common Wauseon Wauseon 5-25 Spirit 00:00: - [facility] 00 [facility] Kenalog Kenalog 2022-0 No 1mL Common (Triamcinol (Triamcinol 5-25 S pirit one) one) 00:00: - [facility] 00 [facility] Kenalog Kenalog 3-0 No 1mL Common (Triamcinol (Triamcinol 5-25 S pirit one) one) 00:00: - [facility] 00 [facility] Bupivicaine Bupivicaine 3-0 No 4mL Common Wauseon Wauseon 5-25 Spirit 00:00: - [facility] 00 [facility] Hyalgan Hyalgan 3-0 No 2mL Common 5-25 Spirit 00:00: - [facility] 00 [facility] Hyalgan Hyalgan 3-0 No 2mL Common 5-25 Spirit 00:00: - [facility] 00 [facility] Hyalgan Hyalgan 3-0 No 2mL Common 5-25 Spirit 00:00: - [facility] 00 [facility] Hyalgan Hyalgan 3-0 No 2mL Common 5-25 Spirit 00:00: - [facility] 00 [facility] Bupivicaine Bupivicaine 3-0 No 4mL Common Wauseon Wauseon 5-25 Spirit 00:00: - [facility] 00 [facility] Kenalog Kenalog 2022-0 No 1mL Common (Triamcinol (Triamcinol 5-25 S pirit one) one) 00:00: - [facility] 00 [facility] Hyalgan Hyalgan 2022-0 No 2mL Common 5-25 Spirit 00:00: - [facility] 00 [facility] Hyalgan Hyalgan 2022-0 No 2mL Common 5-25 Spirit 00:00: - [facility] 00 [facility] Bupivicaine Bupivicaine 2022-0 No 4mL Common Wauseon Wauseon 5-25 Spirit 00:00: - [facility] 00 [facility] Kenalog Kenalog 2022-0 No 1mL Common (Triamcinol (Triamcinol 5-25 S pirit one) one) 00:00: - [facility] 00 [facility] Hyalgan Hyalgan 2022-0 No 2mL Common 5-25 Spirit 00:00: - [facility] 00 [facility] Hyalgan Hyalgan 2022-0 No 2mL Common 5-25 Spirit 00:00: - [facility] 00 [facility] Bupivicaine Bupivicaine 2022-0 No 4mL Common Wauseon Wauseon 5-25 Spirit 00:00: - [facility] 00 [facility] Kenalog Kenalog 2022-0 No 1mL Common (Triamcinol (Triamcinol 5-25 S pirit one) one) 00:00: - [facility] 00 [facility] Hyalgan Hyalgan 3-0 No 2mL Common 5-25 Spirit 00:00: - [facility] 00 [facility] Hyalgan Hyalgan 3-0 No 2mL Common 5-25 Spirit 00:00: - [facility] 00 [facility] Bupivicaine Bupivicaine 3-0 No 4mL Common Wauseon Wauseon 5-25 Spirit 00:00: - [facility] 00 [facility] Kenalog Kenalog 2022-0 No 1mL Common (Triamcinol (Triamcinol 5-25 S pirit one) one) 00:00: - [facility] 00 [facility] Hyalgan Hyalgan 2023-0 No 2mL Common 5-25 Spirit 00:00: - [facility] 00 [facility] Hyalgan Hyalgan 2022-0 No 2mL Common 5-25 Spirit 00:00: - [facility] 00 [facility] Bupivicaine Bupivicaine 2022-0 No 4mL Common Wauseon Wauseon 5-25 Spirit 00:00: - [facility] 00 [facility] Kenalog Kenalog 2022-0 No 1mL Common (Triamcinol (Triamcinol 5-25 S pirit one) one) 00:00: - [facility] 00 [facility] Mounjaro 5 Mounjaro 5 2022-0 No Mounjaro 5 MG/0.5ML MG/0.5ML 5-12 MG/0.5ML 00:00: 00 Mounjaro 5 Mounjaro 5 2022-0 No Mounjaro 5 MG/0.5ML MG/0.5ML 5-12 MG/0.5ML 00:00: 00 Mounjaro 5 Mounjaro 5 2022-0 No Mounjaro 5 MG/0.5ML MG/0.5ML 5-12 MG/0.5ML 00:00: 00 Mounjaro 5 Mounjaro 5 3-0 No Mounjaro 5 MG/0.5ML MG/0.5ML 5-12 MG/0.5ML 00:00: 00 Mounjaro 5 Mounjaro 5 3-0 No Mounjaro 5 MG/0.5ML MG/0.5ML 5-12 MG/0.5ML 00:00: 00 Mounjaro 5 Mounjaro 5 3-0 No Mounjaro 5 MG/0.5ML MG/0.5ML 5-12 MG/0.5ML 00:00: 00 Mounjaro 5 Mounjaro 5 3-0 No Mounjaro 5 MG/0.5ML MG/0.5ML 5-12 MG/0.5ML 00:00: 00 MOUNJARO 3-0 Yes Univers 2.5 mg/0.5 5-12 ity of mL PnIj 00:00: [place] [address] [place] [address] Branch MOUNJARO 3-0 Yes Univers 2.5 mg/0.5 5-12 ity of mL PnIj 00:00: [facility] 0 Yes Univers 2.5 mg/0.5 5-12 ity of mL PnIj 00:00: [facility] 0 Yes Univers 2.5 mg/0.5 5-12 ity of mL PnIj 00:00: [facility] Yes Univers 2.5 mg/0.5 5-12 ity of mL PnIj 00:00: [facility] Yes Univers 2.5 mg/0.5 5-12 ity of mL PnIj 00:00: [facility] Yes Univers 2.5 mg/0.5 5-12 ity of mL PnIj 00:00: [facility] Yes Univers 2.5 mg/0.5 5-12 ity of mL PnIj 00:00: [facility] Yes Univers 2.5 mg/0.5 5-12 ity of mL PnIj 00:00: [facility] Yes Univers 2.5 mg/0.5 5-12 ity of mL PnIj 00:00: [facility] Yes Univers 2.5 mg/0.5 5-12 ity of mL PnIj 00:00: [facility] Yes Univers 2.5 mg/0.5 5-12 ity of mL PnIj 00:00: [facility] Yes Univers 2.5 mg/0.5 5-12 ity of mL PnIj 00:00: [facility] 0 Yes Univers 2.5 mg/0.5 5-12 ity of mL PnIj 00:00: [facility] Yes Univers 2.5 mg/0.5 5-12 ity of mL PnIj 00:00: [facility] Yes Univers 2.5 mg/0.5 5-12 ity of mL PnIj 00:00: [facility] RITARO 2022-0 Yes Univers 2.5 mg/0.5 5-12 ity of mL PnIj 00:00: Medical Branch RITARO 2022-0 Yes Univers 2.5 mg/0.5 5-12 ity of mL PnIj 00:00: [facility] [place] RITARO 2022-0 Yes Univers 2.5 mg/0.5 5-12 ity of mL PnIj 00:00: [facility] [place] BONITARO 2022-0 Yes Univers 2.5 mg/0.5 5-12 ity of mL PnIj 00:00: [facility] [place] RITARO 2022-0 Yes Univers 2.5 mg/0.5 5-12 ity of mL PnIj 00:00: [facility] [place] MADELINE 2022-0 Yes Univers 2.5 mg/0.5 5-12 ity of mL PnIj 00:00: [facility] [place] BONITARO 2022-0 Yes Univers 2.5 mg/0.5 5-12 ity of mL PnIj 00:00: [facility] [place] [facility] Yes Univers 2.5 mg/0.5 5-12 ity of mL PnIj 00:00: [facility] [place] MADELINE 2022-0 Yes Univers 2.5 mg/0.5 5-12 ity of mL PnIj 00:00: [facility] [place] RITARO 2022-0 Yes Univers 2.5 mg/0.5 5-12 ity of mL PnIj 00:00: [facility] [place] RITARO 2022-0 Yes Univers 2.5 mg/0.5 5-12 ity of mL PnIj 00:00: [facility] [place] RITARO 2022-0 Yes Univers 2.5 mg/0.5 5-12 ity of mL PnIj 00:00: [facility] [place] RITARO 2022-0 Yes Univers 2.5 mg/0.5 5-12 ity of mL PnIj 00:00: [facility] [place] RITARO 2022-0 Yes Univers 2.5 mg/0.5 5-12 ity of mL PnIj 00:00: Medical Branch JARDIANCE 2023-0 Yes [id number] Take 1 U nivers 10 mg 4-03 tablet by ity of 00:00: mouth once daily Medical Branch JARDIANCE 2023-0 Yes [id number] Take 1 U nivers 10 mg 4-03 tablet by ity of 00:00: mouth once daily Medical Branch JARDIANCE 2023-0 Yes [id number] Take 1 U nivers 10 mg 4-03 tablet by ity of 00:00: mouth once [place] daily Medical Branch JARDIANCE 2023-0 Yes [id number] Take 1 U nivers 10 mg 4-03 tablet by ity of 00:00: mouth once [place] daily Medical Branch JARDIANCE 3-0 Yes [id number] Take 1 U nivers 10 mg 4-03 tablet by ity of 00:00: mouth once [place] daily Medical Branch JARDIANCE 3-0 Yes [id number] Take 1 U nivers 10 mg 4-03 tablet by ity of 00:00: mouth once [place] daily Medical Branch JARDIANCE 2023-0 Yes [id number] Take 1 U nivers 10 mg 4-03 tablet by ity of 00:00: mouth once [place] daily Medical Branch JARDIANCE 2023-0 Yes [id number] Take 1 U nivers 10 mg 4-03 tablet by ity of 00:00: mouth once [place] daily Medical Branch JARDIANCE 2023-0 Yes [id number] Take 1 U nivers 10 mg 4-03 tablet by ity of 00:00: mouth once [place] daily Medical Branch JARDIANCE 2023-0 Yes [id number] Take 1 U nivers 10 mg 4-03 tablet by ity of 00:00: mouth once [place] daily Medical Branch JARDIANCE 2023-0 Yes [id number] Take 1 U nivers 10 mg 4-03 tablet by ity of 00:00: mouth once [place] daily Medical Branch JARDIANCE 2023-0 Yes [id number] Take 1 U nivers 10 mg 4-03 tablet by ity of 00:00: mouth once [place] daily Medical Branch JARDIANCE 2023-0 Yes [id number] Take 1 U nivers 10 mg 4-03 tablet by ity of 00:00: mouth once [place] daily Medical Branch JARDIANCE 2023-0 Yes [id number] Take 1 U nivers 10 mg 4-03 tablet by ity of 00:00: mouth once [place] daily Medical Branch JARDIANCE 2022-0 Yes [id number] Take 1 U nivers 10 mg 4-03 tablet by ity of 00:00: mouth once [place] daily Medical Branch JARDIANCE 2022-0 Yes [id number] Take 1 U nivers 10 mg 4-03 tablet by ity of 00:00: mouth once [place] daily Medical Branch JARDIANCE 2022-0 Yes [id number] Take 1 U nivers 10 mg 4-03 tablet by ity of 00:00: mouth once [place] daily Medical Branch JARDIANCE 2022-0 Yes [id number] Take 1 U nivers 10 mg 4-03 tablet by ity of 00:00: mouth once [place] daily Medical Branch JARDIANCE 2022-0 Yes [id number] Take 1 U nivers 10 mg 4-03 tablet by ity of 00:00: mouth once [place] daily Medical Branch JARDIANCE 2022-0 Yes [id number] Take 1 U nivers 10 mg 4-03 tablet by ity of 00:00: mouth once [place] daily Medical Branch JARDIANCE 2022-0 Yes [id number] Take 1 U nivers 10 mg 4-03 tablet by ity of 00:00: mouth once [place] daily Medical Branch JARDIANCE 2022-0 Yes [id number] Take 1 U nivers 10 mg 4-03 tablet by ity of 00:00: mouth once [place] daily Medical Branch JARDIANCE 2022-0 Yes [id number] Take 1 U nivers 10 mg 4-03 tablet by ity of 00:00: mouth once [place] daily Medical Branch JARDIANCE 2022-0 Yes [id number] Take 1 U nivers 10 mg 4-03 tablet by ity of 00:00: mouth once [place] daily Medical Branch JARDIANCE 3-0 3- No [id number] Take 1 Univers 10 mg 4-03 06-27 tablet by ity of 00:00: 00:00 mouth once [place] 00 :00 daily Medical Branch spironolact 3-0 Yes [id number] 12.5mg Take 0.5 Univers one 25 mg 3-29 tablets by ity of tablet 00:00: mouth in [place] [address] the Medical morning. Branch spironolact 2023-0 Yes [id number] 12.5mg Take 0.5 Univers one 25 mg 3-29 tablets by ity of tablet 00:00: mouth in [place] the Medical morning. Branch spironolact 2023-0 Yes [id number] 12.5mg Take 0.5 Univers one 25 mg 3-29 tablets by ity of tablet 00:00: mouth in [place] the Medical morning. Branch spironolact 2023-0 Yes [id number] 12.5mg Take 0.5 Univers one 25 mg 3-29 tablets by ity of tablet 00:00: mouth in [place] the Medical morning. Branch spironolact 2023-0 Yes [id number] 12.5mg Take 0.5 Univers one 25 mg 3-29 tablets by ity of tablet 00:00: mouth in [place] the Medical morning. Branch spironolact 2023-0 Yes [id number] 12.5mg Take 0.5 Univers one 25 mg 3-29 tablets by ity of tablet 00:00: mouth in [place] the Medical morning. Branch spironolact 2023-0 Yes [id number] 12.5mg Take 0.5 Univers one 25 mg 3-29 tablets by ity of tablet 00:00: mouth in [place] the Medical morning. Branch spironolact 2023-0 Yes [id number] 12.5mg Take 0.5 Univers one 25 mg 3-29 tablets by ity of tablet 00:00: mouth in [place] the Medical morning. Branch spironolact 2023-0 Yes [id number] 12.5mg Take 0.5 Univers one 25 mg 3-29 tablets by ity of tablet 00:00: mouth in [place] the Medical morning. Branch spironolact 2023-0 Yes [id number] 12.5mg Take 0.5 Univers one 25 mg 3-29 tablets by ity of tablet 00:00: mouth in [place] the Medical morning. Branch spironolact 2023-0 Yes [id number] 12.5mg Take 0.5 Univers one 25 mg 3-29 tablets by ity of tablet 00:00: mouth in [place] the Medical morning. Branch spironolact 2023-0 Yes [id number] 12.5mg Take 0.5 Univers one 25 mg 3-29 tablets by ity of tablet 00:00: mouth in [place] the Medical morning. Branch spironolact 2023-0 Yes [id number] 12.5mg Take 0.5 Univers one 25 mg 3-29 tablets by ity of tablet 00:00: mouth in [place] the Medical morning. Branch spironolact 2023-0 Yes [id number] 12.5mg Take 0.5 Univers one 25 mg 3-29 tablets by ity of tablet 00:00: mouth in [place] the Medical morning. Branch spironolact 2023-0 Yes [id number] 12.5mg Take 0.5 Univers one 25 mg 3-29 tablets by ity of tablet 00:00: mouth in [place] the Medical morning. Branch spironolact 2023-0 Yes [id number] 12.5mg Take 0.5 Univers one 25 mg 3-29 tablets by ity of tablet 00:00: mouth in [place] the Medical morning. Branch spironolact 2023-0 Yes [id number] 12.5mg Take 0.5 Univers one 25 mg 3-29 tablets by ity of tablet 00:00: mouth in [place] the Medical morning. Branch spironolact 2023-0 Yes [id number] 12.5mg Take 0.5 Univers one 25 mg 3-29 tablets by ity of tablet 00:00: mouth in [place] the Medical morning. Branch spironolact 2023-0 Yes [id number] 12.5mg Take 0.5 Univers one 25 mg 3-29 tablets by ity of tablet 00:00: mouth in [place] the Medical morning. Branch spironolact 2023-0 Yes [id number] 12.5mg Take 0.5 Univers one 25 mg 3-29 tablets by ity of tablet 00:00: mouth in [place] the Medical morning. Branch spironolact 2023-0 Yes [id number] 12.5mg Take 0.5 Univers one 25 mg 3-29 tablets by ity of tablet 00:00: mouth in [place] the Medical morning. Branch spironolact 2023-0 Yes [id number] 12.5mg Take 0.5 Univers one 25 mg 3-29 tablets by ity of tablet 00:00: mouth in [place] the Medical morning. Branch spironolact 2023-0 Yes [id number] 12.5mg Take 0.5 Univers one 25 mg 3-29 tablets by ity of tablet 00:00: mouth in [place] the Medical morning. Branch spironolact 2023-0 Yes [id number] 12.5mg Take 0.5 Univers one 25 mg 3-29 tablets by ity of tablet 00:00: mouth in [place] the Medical morning. Branch spironolact 2023-0 Yes [id number] 12.5mg Take 0.5 Univers one 25 mg 3-29 tablets by ity of tablet 00:00: mouth in [place] the Medical morning. Branch spironolact 2023-0 Yes [id number] 12.5mg Take 0.5 Univers one 25 mg 3-29 tablets by ity of tablet 00:00: mouth in [place] the Medical morning. Branch spironolact 2023-0 Yes [id number] 12.5mg Take 0.5 Univers one 25 mg 3-29 tablets by ity of tablet 00:00: mouth in [place] the Medical morning. Branch spironolact 2023-0 Yes [id number] 12.5mg Take 0.5 Univers one 25 mg 3-29 tablets by ity of tablet 00:00: mouth in [place] the Medical morning. Branch spironolact 2023-0 Yes [id number] 12.5mg Take 0.5 Univers one 25 mg 3-29 tablets by ity of tablet 00:00: mouth in [place] the Medical morning. Branch spironolact 2023-0 Yes [id number] 12.5mg Take 0.5 Univers one 25 mg 3-29 tablets by ity of tablet 00:00: mouth in [place] the Medical morning. Branch spironolact 2023-0 Yes [id number] 12.5mg Take 0.5 Univers one 25 mg 3-29 tablets by ity of tablet 00:00: mouth in [place] the Medical morning. Branch spironolact 2023-0 Yes [id number] 12.5mg Take 0.5 Univers one 25 mg 3-29 tablets by ity of tablet 00:00: mouth in [place] 00 the Medical morning. Branch spironolact 2023-0 2023- No [id number] 12.5mg Take 0.5 Univers one 25 mg 3-29 11-02 tablets by ity of tablet 00:00: 00:00 mouth in [place] 00 :00 the Medical morning. Branch spironolact 2022-0 3- No [id number] 12.5mg Take 0.5 Univers one 25 mg 3-29 11-02 tablets by ity of tablet 00:00: 00:00 mouth in [place] 00 :00 the Medical morning. Branch spironolact 2022-0 3- No [id number] 12.5mg Take 0.5 Univers one 25 mg 3-29 -02 tablets by ity of tablet 00:00: 00:00 mouth in [place] 00 :00 the Medical morning. Branch metformin 2022-0 Yes [...] by mouth ity of 13:01: daily with [place] [address] breakfast. Medical Branch metformin 2022-0 Yes 500mg [...] by mouth ity of 13:01: daily with [place] [address] breakfast. Medical Branch metformin 2022-0 Yes 500mg [...] by mouth ity of 13:01: daily with [place] [address] breakfast. Medical Branch metformin 3-0 Yes 500mg [...] by mouth ity of 13:01: daily with [place] [address] breakfast. Medical Branch metformin 3-0 Yes 500mg [...] by mouth ity of 13:01: daily with [place] [address] breakfast. Medical Branch metformin 3-0 Yes 500mg [...] by mouth ity of 13:01: daily with [place] [address] breakfast. Medical Branch metformin 2023-0 Yes 500mg [...] by mouth ity of 13:01: daily with [place] [address] breakfast. Medical Branch metformin 3-0 Yes 500mg [...] by mouth ity of 13:01: daily with [place] [address] breakfast. Medical Branch metformin 3-0 Yes 500mg [...] by mouth ity of 13:01: daily with [place] [address] breakfast. Medical Branch metformin 3-0 Yes 500mg [...] by mouth ity of 13:01: daily with [place] [address] breakfast. Medical Branch metformin 3-0 Yes 500mg [...] by mouth ity of 13:01: daily with [place] [address] breakfast. Medical Branch metformin 3-0 Yes 500mg [...] by mouth ity of 13:01: daily with [place] [address] breakfast. Medical Branch metformin 3-0 Yes 500mg [...] by mouth ity of 13:01: daily with [place] [address] breakfast. Medical Branch metformin 2023-0 Yes 500mg [...] by mouth ity of 13:01: daily with [place] [address] breakfast. Medical Branch metformin 3-0 Yes 500mg Take 500 Uni vers HCl 2-20 mg by ity of (METFORMIN 13:01: [place] 33 (two) Medical times Branch daily with meals. glimepiride 2023-0 Yes 2mg Take 2 mg U nivers 2 mg tablet 2-20 by mouth ity of 13:01: daily with [place] [address] breakfast. Medical Branch metformin 2023-0 Yes 500mg Take 500 Uni vers HCl 2-20 mg by ity of (METFORMIN 13:01: [place] (two) Medical times Branch daily with meals. glimepiride 2023-0 Yes 2mg Take 2 mg U nivers 2 mg tablet 2-20 by mouth ity of 13:01: daily with [place] [address] breakfast. Medical Branch metformin 3-0 Yes 500mg Take 500 Uni vers HCl 2-20 mg by ity of (METFORMIN 13:01: mouth [place] (two) Medical times Branch daily with meals. glimepiride 2023-0 Yes 2mg Take 2 mg U nivers 2 mg tablet 2-20 by mouth ity of 13:01: daily with [place] [address] breakfast. Medical Branch metformin 3-0 Yes 500mg Take 500 Uni vers HCl 2-20 mg by ity of (METFORMIN 13:01: mouth [place] (two) Medical times Branch daily with meals. glimepiride 2023-0 Yes 2mg Take 2 mg U nivers 2 mg tablet 2-20 by mouth ity of 13:01: daily with [place] [address] breakfast. Medical Branch metformin 2023-0 Yes 500mg Take 500 Uni vers HCl 2-20 mg by ity of (METFORMIN 13:01: mouth [place] (two) Medical times Branch daily with meals. glimepiride 2023-0 Yes 2mg Take 2 mg U nivers 2 mg tablet 2-20 by mouth ity of 13:01: daily with [place] [address] breakfast. Medical Branch metformin 2023-0 Yes 500mg [...] by mouth ity of 13:01: daily with [place] [address] breakfast. Medical Branch metformin 3-0 Yes 500mg [...] by mouth ity of 13:01: daily with [place] [address] breakfast. Medical Branch metformin 2022-0 Yes 500mg [...] by mouth ity of 13:01: daily with [place] [address] breakfast. Medical Branch metformin 3-0 Yes 500mg [...] by mouth ity of 13:01: daily with [place] [address] breakfast. Medical Branch metformin 2023-0 Yes 500mg [...] by mouth ity of 13:01: daily with [place] [address] breakfast. Medical Branch metformin 2022-0 Yes 500mg [...] by mouth ity of 13:01: daily with [place] [address] breakfast. Medical Branch metformin 3-0 Yes 500mg [...] by mouth ity of 13:01: daily with [place] [address] breakfast. Medical Branch metformin 3-0 Yes 500mg Take 500 Uni vers HCl 2-20 mg by ity of (METFORMIN 13:01: [place] (two) Medical times Branch daily with meals. sacubitriL- 2023-0 Yes 1{tbl} Take 1 Un iwnter valsartan [...] by mouth ity of 13:01: daily with [place] [address] breakfast. Medical Branch metformin 2022-0 Yes 500mg [...] by mouth ity of 13:01: daily with [place] [address] breakfast. Medical Branch metformin 2022-0 Yes 500mg [...] by mouth ity of 13:01: daily with [place] [address] breakfast. Medical Branch metformin 2022-0 Yes 500mg [...] by mouth ity of 13:01: daily with [place] [address] breakfast. Medical Branch metformin 3-0 Yes 500mg [...] by mouth ity of 13:01: daily with [place] [address] breakfast. Medical Branch metformin 2022-0 Yes 500mg [...] by mouth ity of 13:01: daily with [place] [address] breakfast. Medical Branch bumetanide 3-0 Yes 1mg TAKE 1 Unive rs 1 mg tablet 1-12 TABLET BY ity of 00:00: MOUTH IN [place] THE Medical MORNING Branch AND 1 TABLET IN THE EVENING bumetanide 3-0 Yes 1mg TAKE 1 Unive rs 1 mg tablet 1-12 TABLET BY ity of 00:00: MOUTH IN [place] THE Medical MORNING Branch AND 1 TABLET IN THE EVENING bumetanide 3-0 Yes 1mg TAKE 1 Unive rs 1 mg tablet 1-12 TABLET BY ity of 00:00: MOUTH IN [place] THE Medical MORNING Branch AND 1 TABLET IN THE EVENING bumetanide 3-0 Yes 1mg TAKE 1 Unive rs 1 mg tablet 1-12 TABLET BY ity of 00:00: MOUTH IN [place] THE Medical MORNING Branch AND 1 TABLET IN THE EVENING bumetanide 3-0 Yes 1mg TAKE 1 Unive rs 1 mg tablet 1-12 TABLET BY ity of 00:00: MOUTH IN [place] THE Medical MORNING Branch AND 1 TABLET IN THE EVENING bumetanide 3-0 Yes 1mg TAKE 1 Unive rs 1 mg tablet 1-12 TABLET BY ity of 00:00: MOUTH IN [place] THE Medical MORNING Branch AND 1 TABLET IN THE EVENING bumetanide 3-0 Yes 1mg TAKE 1 Unive rs 1 mg tablet 1-12 TABLET BY ity of 00:00: MOUTH IN [place] 00 THE Medical MORNING Branch AND 1 TABLET IN THE EVENING bumetanide 3-0 Yes 1mg TAKE 1 Unive rs 1 mg tablet 1-12 TABLET BY ity of 00:00: MOUTH IN [place] 00 THE Medical MORNING Branch AND 1 TABLET IN THE EVENING bumetanide 3-0 Yes 1mg TAKE 1 Unive rs 1 mg tablet 1-12 TABLET BY ity of 00:00: MOUTH IN [place] 00 THE Medical MORNING Branch AND 1 TABLET IN THE EVENING bumetanide 3-0 Yes 1mg TAKE 1 Unive rs 1 mg tablet 1-12 TABLET BY ity of 00:00: MOUTH IN [place] 00 THE Medical MORNING Branch AND 1 TABLET IN THE EVENING bumetanide 3-0 Yes 1mg TAKE 1 Unive rs 1 mg tablet 1-12 TABLET BY ity of 00:00: MOUTH IN [place] 00 THE Medical MORNING Branch AND 1 TABLET IN THE EVENING bumetanide 3-0 Yes 1mg TAKE 1 Unive rs 1 mg tablet 1-12 TABLET BY ity of 00:00: MOUTH IN [place] 00 THE Medical MORNING Branch AND 1 TABLET IN THE EVENING bumetanide 3-0 Yes 1mg TAKE 1 Unive rs 1 mg tablet 1-12 TABLET BY ity of 00:00: MOUTH IN [place] 00 THE Medical MORNING Branch AND 1 TABLET IN THE EVENING bumetanide 3-0 Yes 1mg TAKE 1 Unive rs 1 mg tablet 1-12 TABLET BY ity of 00:00: MOUTH IN [place] 00 THE Medical MORNING Branch AND 1 TABLET IN THE EVENING bumetanide 3-0 Yes 1mg TAKE 1 Unive rs 1 mg tablet 1-12 TABLET BY ity of 00:00: MOUTH IN [place] 00 THE Medical MORNING Branch AND 1 TABLET IN THE EVENING bumetanide 3-0 Yes 1mg TAKE 1 Unive rs 1 mg tablet 1-12 TABLET BY ity of 00:00: MOUTH IN [place] 00 THE Medical MORNING Branch AND 1 TABLET IN THE EVENING bumetanide 3-0 Yes 1mg TAKE 1 Unive rs 1 mg tablet 1-12 TABLET BY ity of 00:00: MOUTH IN [place] 00 THE Medical MORNING Branch AND 1 TABLET IN THE EVENING bumetanide 3-0 Yes 1mg TAKE 1 Unive rs 1 mg tablet 1-12 TABLET BY ity of 00:00: MOUTH IN [place] 00 THE Medical MORNING Branch AND 1 TABLET IN THE EVENING bumetanide 3-0 Yes 1mg TAKE 1 Unive rs 1 mg tablet 1-12 TABLET BY ity of 00:00: MOUTH IN [place] 00 THE Medical MORNING Branch AND 1 TABLET IN THE EVENING bumetanide 2022-0 Yes 1mg TAKE 1 Unive rs 1 mg tablet 1-12 TABLET BY ity of 00:00: MOUTH IN [place] 00 THE Medical MORNING Branch AND 1 TABLET IN THE EVENING bumetanide 2022-0 Yes 1mg TAKE 1 [facility] 1 mg tablet 1-12 TABLET BY [facility] 00:00: MOUTH IN [place] 00 THE Medical MORNING Branch AND 1 TABLET IN THE EVENING bumetanide 3-0 Yes 1mg TAKE 1 [facility] 1 mg tablet 1-12 TABLET BY [facility] of 00:00: MOUTH IN [place] 00 THE Medical MORNING Branch AND 1 TABLET IN THE EVENING bumetanide 2022-0 Yes 1mg TAKE 1 [facility] 1 mg tablet 1-12 TABLET BY [facility] of 00:00: MOUTH IN [place] 00 THE Medical MORNING Branch AND 1 TABLET IN THE EVENING bumetanide 2022-0 Yes 1mg TAKE 1 [facility] 1 mg tablet 1-12 TABLET BY [facility] of 00:00: MOUTH IN [place] 00 THE Medical MORNING Branch AND 1 TABLET IN THE EVENING bumetanide 3-0 Yes 1mg TAKE 1 [facility] 1 mg tablet 1-12 TABLET BY [facility] of 00:00: MOUTH IN [place] 00 THE Medical MORNING Branch AND 1 TABLET IN THE EVENING bumetanide 2022-0 Yes 1mg TAKE 1 [facility] 1 mg tablet 1-12 TABLET BY [facility] of 00:00: MOUTH IN [place] 00 THE Medical MORNING Branch AND 1 TABLET IN THE EVENING bumetanide 3-0 Yes 1mg TAKE 1 [facility] 1 mg tablet 1-12 TABLET BY [facility] of 00:00: MOUTH IN [place] 00 THE Medical MORNING Branch AND 1 TABLET IN THE EVENING bumetanide 3-0 Yes 1mg TAKE 1 [facility] 1 mg tablet 1-12 TABLET BY [facility] of 00:00: MOUTH IN [place] 00 THE Medical MORNING Branch AND 1 TABLET IN THE EVENING bumetanide 3-0 Yes 1mg TAKE 1 [facility] 1 mg tablet 1-12 TABLET BY [facility] of 00:00: MOUTH IN [place] 00 THE Medical MORNING Branch AND 1 TABLET IN THE EVENING bumetanide 2023-0 Yes 1mg TAKE 1 [facility] 1 mg tablet 1-12 TABLET BY [facility] of 00:00: MOUTH IN [place] 00 THE Medical MORNING Branch AND 1 TABLET IN THE EVENING bumetanide 2022-0 Yes 1mg TAKE 1 [facility] 1 mg tablet 1-12 TABLET BY [facility] of 00:00: MOUTH IN [place] 00 THE Medical MORNING Branch AND 1 TABLET IN THE EVENING bumetanide 2022-0 Yes 1mg TAKE 1 [facility] 1 mg tablet 1-12 TABLET BY [facility] of 00:00: MOUTH IN [place] 00 THE Medical MORNING Branch AND 1 TABLET IN THE EVENING bumetanide 3-0 Yes 1mg TAKE 1 [facility] 1 mg tablet 1-12 TABLET BY [facility] of 00:00: MOUTH IN [place] 00 THE Medical MORNING Branch AND 1 TABLET IN THE EVENING bumetanide 3-0 Yes 1mg TAKE 1 [facility] 1 mg tablet 1-12 TABLET BY [facility] 00:00: MOUTH IN [place] 00 THE Medical MORNING Branch AND 1 TABLET IN THE EVENING bumetanide 2022-0 Yes 1mg TAKE 1 [facility] 1 mg tablet 1-12 TABLET BY [facility] 00:00: MOUTH IN [place] THE Medical MORNING Branch AND 1 TABLET IN THE EVENING bumetanide 3-0 Yes 1mg TAKE 1 [facility] 1 mg tablet 1-12 TABLET BY [facility] 00:00: MOUTH IN [place] 00 THE Medical MORNING Branch AND 1 TABLET IN THE EVENING bumetanide 3-0 Yes 1mg TAKE 1 [facility] 1 mg tablet 1-12 TABLET BY [facility] 00:00: MOUTH IN [place] 00 THE Medical MORNING Branch AND 1 TABLET IN THE EVENING bumetanide 3-0 Yes 1mg TAKE 1 [facility] 1 mg tablet 1-12 TABLET BY [facility] 00:00: MOUTH IN [place] 00 THE Medical MORNING Branch AND 1 TABLET IN THE EVENING bumetanide 3-0 Yes 1mg TAKE 1 [facility] 1 mg tablet 1-12 TABLET BY [facility] 00:00: MOUTH IN [place] 00 THE Medical MORNING Branch AND 1 TABLET IN THE EVENING bumetanide 3-0 Yes 1mg TAKE 1 [facility] 1 mg tablet 1-12 TABLET BY [facility] 00:00: MOUTH IN [place] 00 THE Medical MORNING Branch AND 1 TABLET IN THE EVENING bumetanide 3-0 Yes 1mg TAKE 1 [facility] 1 mg tablet 1-12 TABLET BY [facility] 00:00: MOUTH IN [place] 00 THE Medical MORNING Branch AND 1 TABLET IN THE EVENING bumetanide 2022-0 Yes 1mg TAKE 1 [facility] 1 mg tablet 1-12 TABLET BY [facility] 00:00: MOUTH IN [place] 00 THE Medical MORNING Branch AND 1 TABLET IN THE EVENING bumetanide 2022-0 Yes 1mg TAKE 1 [facility] 1 mg tablet 1-12 TABLET BY [facility] 00:00: MOUTH IN [place] 00 THE Medical MORNING Branch AND 1 TABLET IN THE EVENING bumetanide 2022-0 Yes 1mg TAKE 1 [facility] 1 mg tablet 1-12 TABLET BY [facility] 00:00: MOUTH IN [place] 00 THE Medical MORNING Branch AND 1 TABLET IN THE EVENING bumetanide 2022-0 Yes 1mg TAKE 1 [facility] 1 mg tablet 1-12 TABLET BY [facility] 00:00: MOUTH IN [place] 00 THE Medical MORNING Branch AND 1 TABLET IN THE EVENING bumetanide 2022-0 Yes 1mg TAKE 1 [facility] 1 mg tablet 1-12 TABLET BY [facility] 00:00: MOUTH IN [place] 00 THE Medical MORNING Branch AND 1 TABLET IN THE EVENING bumetanide 2022-0 Yes 1mg TAKE 1 [facility] 1 mg tablet 1-12 TABLET BY [facility] 00:00: MOUTH IN [place] 00 THE Medical MORNING Branch AND 1 TABLET IN THE EVENING bumetanide 2022-0 Yes 1mg TAKE 1 [facility] 1 mg tablet 1-12 TABLET BY [facility] 00:00: MOUTH IN [place] 00 THE Medical MORNING Branch AND 1 TABLET IN THE EVENING bumetanide 2022-0 Yes 1mg TAKE 1 [facility] 1 mg tablet 1-12 TABLET BY [facility] 00:00: MOUTH IN [place] 00 THE Medical MORNING Branch AND 1 TABLET IN THE EVENING bumetanide 2022-0 Yes 1mg TAKE 1 [facility] 1 mg tablet 1-12 TABLET BY [facility] 00:00: MOUTH IN [place] 00 THE Medical MORNING Branch AND 1 TABLET IN THE EVENING bumetanide 2022-0 Yes 1mg TAKE 1 [facility] 1 mg tablet 1-12 TABLET BY [facility] 00:00: MOUTH IN [place] 00 THE Medical MORNING Branch AND 1 TABLET IN THE EVENING bumetanide 2022-0 Yes 1mg TAKE 1 [facility] 1 mg tablet 1-12 TABLET BY [facility] 00:00: MOUTH IN [place] 00 THE Medical MORNING Branch AND 1 TABLET IN THE EVENING bumetanide 0 Yes 1mg TAKE 1 [facility] 1 mg tablet 1-12 TABLET BY [facility] 00:00: MOUTH IN [place] 00 THE Medical MORNING Branch AND 1 TABLET IN THE EVENING bumetanide 2022-0 2022- No 1mg TAKE 1 [facility] 1 mg tablet 1-12 11-10 TABLET BY [facility] y of 00:00: 00:00 MOUTH IN [place] 00 :00 THE Medical MORNING Branch AND 1 TABLET IN THE EVENING bumetanide 2022-0 2022- No 1mg TAKE 1 [facility] 1 mg tablet 1-12 11-10 TABLET BY it y of 00:00: 00:00 MOUTH IN [place] 00 :00 THE Medical MORNING Branch AND 1 TABLET IN THE EVENING NOEL 2021-05- No Take by [facility] ASPIRIN 0-11 10-11 mouth. [facility] ORAL 13:40: 00:00 [place] 47 :00 Medical Branch carvediloL 2021-05- No 12.5mg Take 12.5 [facility] 12.5 mg 0-11 10-11 mg by [facility] of tablet 13:38: 00:00 mouth 2 [place] 58 :00 (two) Medical times Branch daily with meals. aspirin 81 2021-05 Yes 81mg Take 1 [facility] mg EC 0-11 tablet by [facility] tablet 00:00: mouth in [place] 00 the Medical morning. Branch carvediloL 2021-05 Yes 6.25mg Take 1 [facility] vers 6.25 mg 0-11 tablet by [facility] tablet 00:00: mouth in [place] 00 the Medical morning Branch and 1 tablet in the evening. Take with meals. meclizine 2021-05 Yes 25mg Take 1 [facility] 25 mg 0-11 tablet by [facility] tablet 00:00: mouth in [place] 00 the Medical morning Branch and 1 tablet at noon and 1 tablet in the evening. amiodarone 2021-05 Yes 200mg Take 1 [facility] 200 mg 0-11 tablet by [facility] of tablet 00:00: mouth in [place] 00 the Medical morning. Branch aspirin 81 2021-05 Yes 81mg Take 1 [facility] mg EC 0-11 tablet by [facility] of tablet 00:00: mouth in [place] 00 the Medical morning. Branch carvediloL 2021-05 Yes 6.25mg Take 1 [facility] vers 6.25 mg 0-11 tablet by [facility] tablet 00:00: mouth in [place] the morning Branch and 1 tablet in the evening. Take with meals. meclizine 2021-05 Yes 25mg Take 1 [facility] 25 mg 0-11 tablet by [facility] of tablet 00:00: mouth in [place] the morning Branch and 1 tablet at noon and 1 tablet in the evening. amiodarone 2021-05 Yes 200mg Take 1 [facility] 200 mg 0-11 tablet by [facility] of tablet 00:00: mouth in [place] the morning. Branch aspirin 81 2021-05 Yes 81mg Take 1 [facility] mg EC 0-11 tablet by [facility] of tablet 00:00: mouth in [place] the morning. Branch carvediloL 2021-05 Yes 6.25mg Take 1 [facility] vers 6.25 mg 0-11 tablet by [facility] tablet 00:00: mouth in [place] the morning Branch and 1 tablet in the evening. Take with meals. meclizine 2021-05 Yes 25mg Take 1 [facility] 25 mg 0-11 tablet by [facility] of tablet 00:00: mouth in [place] the morning Branch and 1 tablet at noon and 1 tablet in the evening. amiodarone 2021-05 Yes 200mg Take 1 [facility] 200 mg 0-11 tablet by [facility] tablet 00:00: mouth in [place] the morning. Branch aspirin 81 2021-05 Yes 81mg Take 1 [facility] mg EC 0-11 tablet by [facility] of tablet 00:00: mouth in [place] the morning. Branch carvediloL 2021-05 Yes 6.25mg Take 1 [facility] 6.25 mg 0-11 tablet by [facility] tablet 00:00: mouth in [place] the morning Branch and 1 tablet in the evening. Take with meals. meclizine 2021-05 Yes 25mg Take 1 [facility] 25 mg 0-11 tablet by [facility] tablet 00:00: mouth in [place] the Medical morning Branch and 1 tablet at noon and 1 tablet in the evening. amiodarone 2021- Yes 200mg Take 1 [facility] 200 mg 0-11 tablet by [facility] of tablet 00:00: mouth in [place] the morning. Branch aspirin 81 2021-05 Yes 81mg Take 1 [facility] mg EC 0-11 tablet by [facility] of tablet 00:00: mouth in [place] the morning. Branch carvediloL 2021-05 Yes 6.25mg Take 1 [facility] 6.25 mg 0-11 tablet by [facility] tablet 00:00: mouth in [place] the Medical morning Branch and 1 tablet in the evening. Take with meals. meclizine 2021-05 Yes 25mg Take 1 [facility] 25 mg 0-11 tablet by [facility] tablet 00:00: mouth in [place] the Medical morning Branch and 1 tablet at noon and 1 tablet in the evening. amiodarone 2021-05 Yes 200mg Take 1 [facility] 200 mg 0-11 tablet by [facility] of tablet 00:00: mouth in [place] the morning. Branch aspirin 81 2021-05 Yes 81mg Take 1 [facility] mg EC 0-11 tablet by [facility] of tablet 00:00: mouth in [place] the morning. Branch carvediloL 2021-05 Yes 6.25mg Take 1 [facility] 6.25 mg 0-11 tablet by [facility] tablet 00:00: mouth in [place] the Medical morning Branch and 1 tablet in the evening. Take with meals. meclizine 2021-05 Yes 25mg Take 1 [facility] 25 mg 0-11 tablet by [facility] tablet 00:00: mouth in [place] the Medical morning Branch and 1 tablet at noon and 1 tablet in the evening. amiodarone 2021-05 Yes 200mg Take 1 [facility] 200 mg 0-11 tablet by [facility] of tablet 00:00: mouth in [place] the morning. Branch aspirin 81 2021-05 Yes 81mg Take 1 [facility] mg EC 0-11 tablet by [facility] of tablet 00:00: mouth in [place] the morning. Branch carvediloL 2021-05 Yes 6.25mg Take 1 [facility] 6.25 mg 0-11 tablet by [facility] tablet 00:00: mouth in [place] the Medical morning Branch and 1 tablet in the evening. Take with meals. meclizine 2021-05 Yes 25mg Take 1 [facility] 25 mg 0-11 tablet by [facility] tablet 00:00: mouth in [place] [address] the Medical morning Branch and 1 tablet at noon and 1 tablet in the evening. amiodarone 2021-05 Yes 200mg Take 1 [facility] 200 mg 0-11 tablet by [facility] of tablet 00:00: mouth in [place] the morning. Branch aspirin 81 2021-05 Yes 81mg Take 1 [facility] mg EC 0-11 tablet by [facility] of tablet 00:00: mouth in [place] the morning. Branch carvediloL 2021-05 Yes 6.25mg Take 1 [facility] 6.25 mg 0-11 tablet by [facility] tablet 00:00: mouth in [place] the Medical morning Branch and 1 tablet in the evening. Take with meals. meclizine 2021-05 Yes 25mg Take 1 [facility] 25 mg 0-11 tablet by [facility] of tablet 00:00: mouth in [place] the Medical morning Branch and 1 tablet at noon and 1 tablet in the evening. amiodarone 2021-05 Yes 200mg Take 1 [facility] 200 mg 0-11 tablet by [facility] of tablet 00:00: mouth in [place] the morning. Branch aspirin 81 2021-05 Yes 81mg Take 1 [facility] mg EC 0-11 tablet by [facility] of tablet 00:00: mouth in [place] the morning. Branch carvediloL 2021-05 Yes 6.25mg Take 1 [facility] 6.25 mg 0-11 tablet by [facility] of tablet 00:00: mouth in [place] the Medical morning Branch and 1 tablet in the evening. Take with meals. meclizine 2021- Yes 25mg Take 1 [facility] 25 mg 0-11 tablet by [facility] tablet 00:00: mouth in [place] the Medical morning Branch and 1 tablet at noon and 1 tablet in the evening. amiodarone 2021- Yes 200mg Take 1 [facility] 200 mg 0-11 tablet by [facility] of tablet 00:00: mouth in [place] the morning. Branch aspirin 81 2021-05 Yes 81mg Take 1 [facility] mg EC 0-11 tablet by [facility] of tablet 00:00: mouth in [place] the morning. Branch carvediloL 2021-05 Yes 6.25mg Take 1 [facility] 6.25 mg 0-11 tablet by [facility] tablet 00:00: mouth in [place] the Medical morning Branch and 1 tablet in the evening. Take with meals. meclizine 2021-05 Yes 25mg Take 1 [facility] 25 mg 0-11 tablet by [facility] tablet 00:00: mouth in [place] the morning Branch and 1 tablet at noon and 1 tablet in the evening. amiodarone 2021-05 Yes 200mg Take 1 [facility] 200 mg 0-11 tablet by [facility] of tablet 00:00: mouth in [place] the . Branch aspirin 81 2021-05 Yes 81mg Take 1 [facility] mg EC 0-11 tablet by [facility] of tablet 00:00: mouth in [place] the morning. Branch carvediloL 2021-05 Yes 6.25mg Take 1 [facility] 6.25 mg 0-11 tablet by [facility] of tablet 00:00: mouth in [place] the morning Branch and 1 tablet in the evening. Take with meals. meclizine 2021-05 Yes 25mg Take 1 [facility] 25 mg 0-11 tablet by [facility] of tablet 00:00: mouth in [place] the morning Branch and 1 tablet at noon and 1 tablet in the evening. amiodarone 2021-05 Yes 200mg Take 1 [facility] 200 mg 0-11 tablet by [facility] of tablet 00:00: mouth in [place] the . Branch aspirin 81 2021-05 Yes 81mg Take 1 [facility] mg EC 0-11 tablet by [facility] of tablet 00:00: mouth in [place] the . Branch carvediloL 2021-05 Yes 6.25mg Take 1 [facility] 6.25 mg 0-11 tablet by [facility] of tablet 00:00: mouth in [place] the morning Branch and 1 tablet in the evening. Take with meals. meclizine 2021-05 Yes 25mg Take 1 [facility] 25 mg 0-11 tablet by [facility] of tablet 00:00: mouth in [place] the morning Branch and 1 tablet at noon and 1 tablet in the evening. amiodarone 2021-05 Yes 200mg Take 1 [facility] 200 mg 0-11 tablet by [facility] of tablet 00:00: mouth in [place] the morning. Branch aspirin 81 2021-05 Yes 81mg Take 1 [facility] mg EC 0-11 tablet by [facility] of tablet 00:00: mouth in [place] the . Branch carvediloL 2021-05 Yes 6.25mg Take 1 [facility] 6.25 mg 0-11 tablet by [facility] of tablet 00:00: mouth in [place] the morning Branch and 1 tablet in the evening. Take with meals. meclizine 2021-05 Yes 25mg Take 1 [facility] 25 mg 0-11 tablet by [facility] of tablet 00:00: mouth in [place] the morning Branch and 1 tablet at noon and 1 tablet in the evening. amiodarone 2021-05 Yes 200mg Take 1 [facility] 200 mg 0-11 tablet by [facility] of tablet 00:00: mouth in [place] the morning. Branch aspirin 81 2021-05 Yes 81mg Take 1 [facility] mg EC 0-11 tablet by [facility] of tablet 00:00: mouth in [place] the . Branch carvediloL 2021-05 Yes 6.25mg Take 1 [facility] 6.25 mg 0-11 tablet by [facility] of tablet 00:00: mouth in [place] the morning Branch and 1 tablet in the evening. Take with meals. meclizine 2021-05 Yes 25mg Take 1 [facility] 25 mg 0-11 tablet by [facility] of tablet 00:00: mouth in [place] the morning Branch and 1 tablet at noon and 1 tablet in the evening. amiodarone 2021-05 Yes 200mg Take 1 [facility] 200 mg 0-11 tablet by [facility] of tablet 00:00: mouth in [place] the . Branch aspirin 81 2021-05 Yes 81mg Take 1 [facility] mg EC 0-11 tablet by [facility] of tablet 00:00: mouth in [place] the . Branch carvediloL 2021-05 Yes 6.25mg Take 1 [facility] 6.25 mg 0-11 tablet by [facility] of tablet 00:00: mouth in [place] the morning Branch and 1 tablet in the evening. Take with meals. meclizine 2021-05 Yes 25mg Take 1 [facility] 25 mg 0-11 tablet by [facility] of tablet 00:00: mouth in [place] the Medical morning Branch and 1 tablet at noon and 1 tablet in the evening. amiodarone 2021-05 Yes 200mg Take 1 [facility] 200 mg 0-11 tablet by [facility] of tablet 00:00: mouth in [place] the morning. Branch aspirin 81 2021-05 Yes 81mg Take 1 [facility] mg EC 0-11 tablet by [facility] of tablet 00:00: mouth in [place] the morning. Branch carvediloL 2021-05 Yes 6.25mg Take 1 [facility] 6.25 mg 0-11 tablet by [facility] of tablet 00:00: mouth in [place] the Medical morning Branch and 1 tablet in the evening. Take with meals. meclizine 2021-05 Yes 25mg Take 1 [facility] 25 mg 0-11 tablet by [facility] of tablet 00:00: mouth in [place] the Medical morning Branch and 1 tablet at noon and 1 tablet in the evening. amiodarone 2021-05 Yes 200mg Take 1 [facility] 200 mg 0-11 tablet by [facility] of tablet 00:00: mouth in [place] the morning. Branch aspirin 81 2021-05 Yes 81mg Take 1 [facility] mg EC 0-11 tablet by [facility] of tablet 00:00: mouth in [place] the morning. Branch carvediloL 2021-05 Yes 6.25mg Take 1 [facility] 6.25 mg 0-11 tablet by [facility] of tablet 00:00: mouth in [place] the Medical morning Branch and 1 tablet in the evening. Take with meals. meclizine 2021-05 Yes 25mg Take 1 [facility] 25 mg 0-11 tablet by [facility] of tablet 00:00: mouth in [place] the Medical morning Branch and 1 tablet at noon and 1 tablet in the evening. amiodarone 2021-05 Yes 200mg Take 1 [facility] 200 mg 0-11 tablet by [facility] of tablet 00:00: mouth in [place] the morning. Branch aspirin 81 2021-05 Yes 81mg Take 1 [facility] mg EC 0-11 tablet by [facility] of tablet 00:00: mouth in [place] the morning. Branch carvediloL 2021-05 Yes 6.25mg Take 1 [facility] 6.25 mg 0-11 tablet by [facility] of tablet 00:00: mouth in [place] the Medical morning Branch and 1 tablet in the evening. Take with meals. meclizine 2021-05 Yes 25mg Take 1 [facility] 25 mg 0-11 tablet by [facility] of tablet 00:00: mouth in [place] the Medical morning Branch and 1 tablet at noon and 1 tablet in the evening. amiodarone 2021-05 Yes 200mg Take 1 [facility] 200 mg 0-11 tablet by [facility] of tablet 00:00: mouth in [place] the morning. Branch aspirin 81 2021-05 Yes 81mg Take 1 [facility] mg EC 0-11 tablet by [facility] of tablet 00:00: mouth in [place] the morning. Branch carvediloL 2021-05 Yes 6.25mg Take 1 [facility] 6.25 mg 0-11 tablet by [facility] of tablet 00:00: mouth in [place] the Medical morning Branch and 1 tablet in the evening. Take with meals. meclizine 2021-05 Yes 25mg Take 1 [facility] 25 mg 0-11 tablet by [facility] of tablet 00:00: mouth in [place] the Medical morning Branch and 1 tablet at noon and 1 tablet in the evening. amiodarone 2021-05 Yes 200mg Take 1 [facility] 200 mg 0-11 tablet by [facility] of tablet 00:00: mouth in [place] the morning. Branch aspirin 81 2021-05 Yes 81mg Take 1 [facility] mg EC 0-11 tablet by [facility] of tablet 00:00: mouth in [place] the morning. Branch carvediloL 2021-05 Yes 6.25mg Take 1 [facility] 6.25 mg 0-11 tablet by [facility] of tablet 00:00: mouth in [place] the Medical morning Branch and 1 tablet in the evening. Take with meals. meclizine 2021-05 Yes 25mg Take 1 [facility] 25 mg 0-11 tablet by [facility] of tablet 00:00: mouth in [place] the Medical morning Branch and 1 tablet at noon and 1 tablet in the evening. amiodarone 2021-05 Yes 200mg Take 1 [facility] 200 mg 0-11 tablet by [facility] of tablet 00:00: mouth in [place] the morning. Branch aspirin 81 2021-05 Yes 81mg Take 1 [facility] mg EC 0-11 tablet by [facility] of tablet 00:00: mouth in [place] the Medical morning. Branch carvediloL 2021-05 Yes 6.25mg Take 1 [facility] 6.25 mg 0-11 tablet by [facility] of tablet 00:00: mouth in [place] the Medical morning Branch and 1 tablet in the evening. Take with meals. meclizine 2021-05 Yes 25mg Take 1 [facility] 25 mg 0-11 tablet by [facility] of tablet 00:00: mouth in [place] the morning Branch and 1 tablet at noon and 1 tablet in the evening. amiodarone 2021-05 Yes 200mg Take 1 [facility] 200 mg 0-11 tablet by [facility] of tablet 00:00: mouth in [place] the . Branch aspirin 81 2021-05 Yes 81mg Take 1 [facility] mg EC 0-11 tablet by [facility] of tablet 00:00: mouth in [place] the morning. Branch carvediloL 2021-05 Yes 6.25mg Take 1 [facility] 6.25 mg 0-11 tablet by [facility] of tablet 00:00: mouth in [place] the morning Branch and 1 tablet in the evening. Take with meals. meclizine 2021-05 Yes 25mg Take 1 [facility] 25 mg 0-11 tablet by [facility] of tablet 00:00: mouth in [place] the morning Branch and 1 tablet at noon and 1 tablet in the evening. amiodarone 2021-05 Yes 200mg Take 1 [facility] 200 mg 0-11 tablet by [facility] of tablet 00:00: mouth in [place] the . Branch aspirin 81 2021-05 Yes 81mg Take 1 [facility] mg EC 0-11 tablet by [facility] of tablet 00:00: mouth in [place] the . Branch carvediloL 2021-05 Yes 6.25mg Take 1 [facility] vers 6.25 mg 0-11 tablet by [facility] of tablet 00:00: mouth in [place] the morning Branch and 1 tablet in the evening. Take with meals. meclizine 2021-05 Yes 25mg Take 1 [facility] 25 mg 0-11 tablet by [facility] of tablet 00:00: mouth in [place] the morning Branch and 1 tablet at noon and 1 tablet in the evening. amiodarone 2021- Yes 200mg Take 1 [facility] 200 mg 0-11 tablet by [facility] of tablet 00:00: mouth in [place] the morning. Branch aspirin 81 2021-05 Yes 81mg Take 1 [facility] mg EC 0-11 tablet by [facility] of tablet 00:00: mouth in [place] the morning. Branch carvediloL 2021-05 Yes 6.25mg Take 1 [facility] vers 6.25 mg 0-11 tablet by [facility] of tablet 00:00: mouth in [place] the morning Branch and 1 tablet in the evening. Take with meals. meclizine 2021-05 Yes 25mg Take 1 [facility] 25 mg 0-11 tablet by [facility] of tablet 00:00: mouth in [place] the morning Branch and 1 tablet at noon and 1 tablet in the evening. amiodarone 2021-05 Yes 200mg Take 1 [facility] 200 mg 0-11 tablet by [facility] of tablet 00:00: mouth in [place] the morning. Branch aspirin 81 2021-05 Yes 81mg Take 1 [facility] mg EC 0-11 tablet by [facility] of tablet 00:00: mouth in [place] the morning. Branch carvediloL 2021-05 Yes 6.25mg Take 1 [facility] vers 6.25 mg 0-11 tablet by [facility] of tablet 00:00: mouth in [place] the morning Branch and 1 tablet in the evening. Take with meals. meclizine 2021-05 Yes 25mg Take 1 [facility] 25 mg 0-11 tablet by [facility] of tablet 00:00: mouth in [place] the morning Branch and 1 tablet at noon and 1 tablet in the evening. amiodarone 2021-05 Yes 200mg Take 1 [facility] 200 mg 0-11 tablet by [facility] of tablet 00:00: mouth in [place] the morning. Branch aspirin 81 2021-05 Yes 81mg Take 1 [facility] mg EC 0-11 tablet by [facility] of tablet 00:00: mouth in [place] the morning. Branch carvediloL 2021-05 Yes 6.25mg Take 1 [facility] vers 6.25 mg 0-11 tablet by [facility] of tablet 00:00: mouth in [place] the morning Branch and 1 tablet in the evening. Take with meals. meclizine 2021-05 Yes 25mg Take 1 [facility] 25 mg 0-11 tablet by [facility] of tablet 00:00: mouth in [place] [address] the morning Branch and 1 tablet at noon and 1 tablet in the evening. amiodarone 2021- Yes 200mg Take 1 [facility] 200 mg 0-11 tablet by [facility] of tablet 00:00: mouth in [place] the morning. Branch aspirin 81 2021-05 Yes 81mg Take 1 [facility] mg EC 0-11 tablet by [facility] of tablet 00:00: mouth in [place] the morning. Branch carvediloL 2021-05 Yes 6.25mg Take 1 [facility] 6.25 mg 0-11 tablet by [facility] of tablet 00:00: mouth in [place] the Medical morning Branch and 1 tablet in the evening. Take with meals. meclizine 2021-05 Yes 25mg Take 1 [facility] 25 mg 0-11 tablet by [facility] of tablet 00:00: mouth in [place] the Medical morning Branch and 1 tablet at noon and 1 tablet in the evening. amiodarone 2021-05 Yes 200mg Take 1 [facility] 200 mg 0-11 tablet by [facility] of tablet 00:00: mouth in [place] the morning. Branch aspirin 81 2021-05 Yes 81mg Take 1 [facility] mg EC 0-11 tablet by [facility] of tablet 00:00: mouth in [place] the morning. Branch carvediloL 2021-05 Yes 6.25mg Take 1 [facility] 6.25 mg 0-11 tablet by [facility] of tablet 00:00: mouth in [place] the morning Branch and 1 tablet in the evening. Take with meals. meclizine 2021-05 Yes 25mg Take 1 [facility] 25 mg 0-11 tablet by [facility] of tablet 00:00: mouth in [place] the Medical morning Branch and 1 tablet at noon and 1 tablet in the evening. amiodarone 2021-05 Yes 200mg Take 1 [facility] 200 mg 0-11 tablet by [facility] of tablet 00:00: mouth in [place] the morning. Branch aspirin 81 2021-05 Yes 81mg Take 1 [facility] mg EC 0-11 tablet by [facility] of tablet 00:00: mouth in [place] the morning. Branch carvediloL 2021-05 Yes 6.25mg Take 1 [facility] 6.25 mg 0-11 tablet by [facility] of tablet 00:00: mouth in [place] the Medical morning Branch and 1 tablet in the evening. Take with meals. meclizine 2021-05 Yes 25mg Take 1 [facility] 25 mg 0-11 tablet by [facility] of tablet 00:00: mouth in [place] the morning Branch and 1 tablet at noon and 1 tablet in the evening. amiodarone 2021-05 Yes 200mg Take 1 [facility] 200 mg 0-11 tablet by [facility] of tablet 00:00: mouth in [place] the . Branch aspirin 81 2021-05 Yes 81mg Take 1 [facility] mg EC 0-11 tablet by [facility] of tablet 00:00: mouth in [place] the . Branch carvediloL 2021-05 Yes 6.25mg Take 1 [facility] 6.25 mg 0-11 tablet by [facility] tablet 00:00: mouth in [place] the morning Branch and 1 tablet in the evening. Take with meals. meclizine 2021-05 Yes 25mg Take 1 [facility] 25 mg 0-11 tablet by [facility] of tablet 00:00: mouth in [place] the morning Branch and 1 tablet at noon and 1 tablet in the evening. aspirin 81 2021-05 Yes 81mg Take 1 [facility] mg EC 0-11 tablet by [facility] of tablet 00:00: mouth in [place] the . Branch carvediloL 2021-05 Yes 6.25mg Take 1 [facility] 6.25 mg 0-11 tablet by [facility] tablet 00:00: mouth in [place] the morning Branch and 1 tablet in the evening. Take with meals. meclizine 2021-05 Yes 25mg Take 1 [facility] 25 mg 0-11 tablet by [facility] tablet 00:00: mouth in [place] the morning Branch and 1 tablet at noon and 1 tablet in the evening. aspirin 81 2021-05 Yes 81mg Take 1 [facility] mg EC 0-11 tablet by [facility] tablet 00:00: mouth in [place] the . Branch carvediloL 2021-05 Yes 6.25mg Take 1 [facility] vers 6.25 mg 0-11 tablet by [facility] tablet 00:00: mouth in [place] the morning Branch and 1 tablet in the evening. Take with meals. meclizine 2021-05 Yes 25mg Take 1 [facility] 25 mg 0-11 tablet by [facility] tablet 00:00: mouth in [place] [address] the morning Branch and 1 tablet at noon and 1 tablet in the evening. aspirin 81 2021-05 Yes 81mg Take 1 [facility] mg EC 0-11 tablet by [facility] tablet 00:00: mouth in [place] the morning. Branch carvediloL 2021-05 Yes 6.25mg Take 1 [facility] vers 6.25 mg 0-11 tablet by [facility] tablet 00:00: mouth in [place] the Medical morning Branch and 1 tablet in the evening. Take with meals. meclizine 2021-05 Yes 25mg Take 1 [facility] 25 mg 0-11 tablet by [facility] tablet 00:00: mouth in [place] the Medical morning Branch and 1 tablet at noon and 1 tablet in the evening. aspirin 81 2021-05 Yes 81mg Take 1 [facility] mg EC 0-11 tablet by [facility] tablet 00:00: mouth in [place] the morning. Branch meclizine 2021-05 Yes 25mg Take 1 [facility] 25 mg 0-11 tablet by [facility] tablet 00:00: mouth in [place] the Medical morning Branch and 1 tablet at noon and 1 tablet in the evening. aspirin 81 2021-05 Yes 81mg Take 1 [facility] mg EC 0-11 tablet by [facility] tablet 00:00: mouth in [place] the morning. Branch meclizine 2021-05 Yes 25mg Take 1 [facility] 25 mg 0-11 tablet by [facility] tablet 00:00: mouth in [place] the morning Branch and 1 tablet at noon and 1 tablet in the evening. aspirin 81 2021-05 Yes 81mg Take 1 [facility] mg EC 0-11 tablet by [facility] tablet 00:00: mouth in [place] the morning. Branch meclizine 2021-05 Yes 25mg Take 1 [facility] 25 mg 0-11 tablet by [facility] tablet 00:00: mouth in [place] the Medical morning Branch and 1 tablet at noon and 1 tablet in the evening. aspirin 81 2021-05 Yes 81mg Take 1 [facility] mg EC 0-11 tablet by [facility] tablet 00:00: mouth in [place] the morning. Branch meclizine 2021-05 Yes 25mg Take 1 [facility] 25 mg 0-11 tablet by [facility] tablet 00:00: mouth in [place] the Medical morning Branch and 1 tablet at noon and 1 tablet in the evening. aspirin 81 2021-05 Yes 81mg Take 1 [facility] mg EC 0-11 tablet by [facility] tablet 00:00: mouth in [place] the morning. Branch meclizine 2021-05 Yes 25mg Take 1 [facility] 25 mg 0-11 tablet by [facility] tablet 00:00: mouth in [place] the Medical morning Branch and 1 tablet at noon and 1 tablet in the evening. aspirin 81 2021-05 Yes 81mg Take 1 [facility] mg EC 0-11 tablet by [facility] tablet 00:00: mouth in [place] the morning. Branch meclizine 2021-05 Yes 25mg Take 1 [facility] 25 mg 0-11 tablet by [facility] tablet 00:00: mouth in [place] the morning Branch and 1 tablet at noon and 1 tablet in the evening. aspirin 81 2021-05 Yes 81mg Take 1 [facility] mg EC 0-11 tablet by [facility] tablet 00:00: mouth in [place] the . Branch meclizine 2021-05 Yes 25mg Take 1 [facility] 25 mg 0-11 tablet by [facility] tablet 00:00: mouth in [place] the morning Branch and 1 tablet at noon and 1 tablet in the evening. aspirin 81 2021-05 Yes 81mg Take 1 [facility] mg EC 0-11 tablet by [facility] tablet 00:00: mouth in [place] the morning. Branch meclizine 2021-05 Yes 25mg Take 1 [facility] 25 mg 0-11 tablet by [facility] tablet 00:00: mouth in [place] the morning Branch and 1 tablet at noon and 1 tablet in the evening. aspirin 81 2021-05 Yes 81mg Take 1 [facility] mg EC 0-11 tablet by [facility] tablet 00:00: mouth in [place] the morning. Branch meclizine 2021-05 Yes 25mg Take 1 [facility] 25 mg 0-11 tablet by [facility] tablet 00:00: mouth in [place] the Medical morning Branch and 1 tablet at noon and 1 tablet in the evening. aspirin 81 2021- Yes 81mg Take 1 [facility] mg EC 0-11 tablet by [facility] tablet 00:00: mouth in [place] the morning. Branch meclizine 2021-05 Yes 25mg Take 1 [facility] 25 mg 0-11 tablet by [facility] tablet 00:00: mouth in [place] 00 the Medical morning Branch and 1 tablet at noon and 1 tablet in the evening. aspirin 81 2021-05 Yes 81mg Take 1 [facility] mg EC 0-11 tablet by [facility] tablet 00:00: mouth in [place] the Medical morning. Branch meclizine 2021-05 Yes 25mg Take 1 [facility] 25 mg 0-11 tablet by [facility] tablet 00:00: mouth in [place] 00 the Medical morning Branch and 1 tablet at noon and 1 tablet in the evening. aspirin 2021-05 Yes 81mg Take 1 [facility] (NOEL LOW 0-11 tablet by [facility] DOSE 00:00: mouth in [place] ASPIRIN) 81 00 the Medical mg EC morning. Branch tablet carvediloL 2021-05 Yes 6.25mg Take 1 [facility] vers 6.25 mg 0-11 tablet by [facility] tablet 00:00: mouth in [place] the Medical morning Branch and 1 tablet in the evening. Take with meals. meclizine 2021-05 Yes 25mg Take 1 [facility] 25 mg 0-11 tablet by [facility] tablet 00:00: mouth in [place] the Medical morning Branch and 1 tablet at noon and 1 tablet in the evening. amiodarone 2021-05 Yes 200mg Take 1 [facility] 200 mg 0-11 tablet by [facility] tablet 00:00: mouth in [place] the morning. Branch aspirin 2021-05 Yes 81mg Take 1 [facility] (NOEL LOW 0-11 tablet by [facility] DOSE 00:00: mouth in [place] ASPIRIN) 81 00 the Medical mg EC morning. Branch tablet carvediloL 2021-05 Yes 6.25mg Take 1 [facility] vers 6.25 mg 0-11 tablet by [facility] tablet 00:00: mouth in [place] 00 the Medical morning Branch and 1 tablet in the evening. Take with meals. meclizine 2021-05 Yes 25mg Take 1 [facility] 25 mg 0-11 tablet by [facility] tablet 00:00: mouth in [place] 00 the Medical morning Branch and 1 tablet at noon and 1 tablet in the evening. amiodarone 2021-05 Yes 200mg Take 1 [facility] 200 mg 0-11 tablet by [facility] tablet 00:00: mouth in [place] the morning. Branch aspirin 2021-05 Yes 81mg Take 1 [facility] (NOEL LOW 0-11 tablet by [facility] of DOSE 00:00: mouth in [place] ASPIRIN) 81 00 the Medical mg EC morning. Branch tablet carvediloL 2021-05 Yes 6.25mg Take 1 [facility] vers 6.25 mg 0-11 tablet by [facility] tablet 00:00: mouth in [place] 00 the Medical morning Branch and 1 tablet in the evening. Take with meals. meclizine 2021-05 Yes 25mg Take 1 [facility] 25 mg 0-11 tablet by [facility] tablet 00:00: mouth in [place] 00 the Medical morning Branch and 1 tablet at noon and 1 tablet in the evening. amiodarone 2021-05 Yes 200mg Take 1 [facility] 200 mg 0-11 tablet by [facility] tablet 00:00: mouth in [place] 00 the Medical morning. Branch aspirin 2021-05 Yes 81mg Take 1 [facility] (NOEL LOW 0-11 tablet by [facility] DOSE 00:00: mouth in [place] ASPIRIN) 81 00 the Medical mg EC morning. Branch tablet carvediloL 2021-05 Yes 6.25mg Take 1 [facility] vers 6.25 mg 0-11 tablet by [facility] tablet 00:00: mouth in [place] 00 the Medical morning Branch and 1 tablet in the evening. Take with meals. meclizine 2021-05 Yes 25mg Take 1 [facility] 25 mg 0-11 tablet by [facility] tablet 00:00: mouth in [place] 00 the Medical morning Branch and 1 tablet at noon and 1 tablet in the evening. amiodarone 2021-05 Yes 200mg Take 1 [facility] 200 mg 0-11 tablet by [facility] tablet 00:00: mouth in [place] 00 the Medical morning. Branch aspirin 2021-05 Yes 81mg Take 1 [facility] (NOEL LOW 0-11 tablet by [facility] DOSE 00:00: mouth in [place] ASPIRIN) 81 00 the Medical mg EC morning. Branch tablet carvediloL 2021-05 Yes 6.25mg Take 1 [facility] vers 6.25 mg 0-11 tablet by [facility] tablet 00:00: mouth in [place] 00 the Medical morning Branch and 1 tablet in the evening. Take with meals. meclizine 2021-05 Yes 25mg Take 1 [facility] 25 mg 0-11 tablet by [facility] tablet 00:00: mouth in [place] 00 the Medical morning Branch and 1 tablet at noon and 1 tablet in the evening. amiodarone 2021-05 Yes 200mg Take 1 [facility] 200 mg 0-11 tablet by [facility] tablet 00:00: mouth in [place] 00 the Medical morning. Branch aspirin 2021-05 Yes 81mg Take 1 [facility] (NOEL LOW 0-11 tablet by [facility] DOSE 00:00: mouth in [place] ASPIRIN) 81 00 the Medical mg EC morning. Branch tablet carvediloL 2021-05 Yes 6.25mg Take 1 [facility] vers 6.25 mg 0-11 tablet by [facility] tablet 00:00: mouth in [place] 00 the Medical morning Branch and 1 tablet in the evening. Take with meals. meclizine 2021-05 Yes 25mg Take 1 [facility] 25 mg 0-11 tablet by [facility] tablet 00:00: mouth in [place] 00 the Medical morning Branch and 1 tablet at noon and 1 tablet in the evening. amiodarone 2021-05 Yes 200mg Take 1 [facility] 200 mg 0-11 tablet by [facility] tablet 00:00: mouth in [place] 00 the Medical morning. Branch aspirin 2021-05 Yes 81mg Take 1 [facility] (NOEL LOW 0-11 tablet by [facility] DOSE 00:00: mouth in [place] ASPIRIN) 81 00 the Medical mg EC morning. Branch tablet carvediloL 2021-05 Yes 6.25mg Take 1 [facility] vers 6.25 mg 0-11 tablet by [facility] tablet 00:00: mouth in [place] 00 the Medical morning Branch and 1 tablet in the evening. Take with meals. meclizine 2021-05 Yes 25mg Take 1 [facility] 25 mg 0-11 tablet by [facility] tablet 00:00: mouth in [place] 00 the Medical morning Branch and 1 tablet at noon and 1 tablet in the evening. amiodarone 2021-05 Yes 200mg Take 1 [facility] 200 mg 0-11 tablet by [facility] tablet 00:00: mouth in [place] 00 the Medical morning. Branch aspirin 2021-05 Yes 81mg Take 1 [facility] (NOEL LOW 0-11 tablet by [facility] DOSE 00:00: mouth in [place] ASPIRIN) 81 00 the Medical mg EC morning. Branch tablet carvediloL 2021-05 Yes 6.25mg Take 1 [facility] 6.25 mg 0-11 tablet by [facility] tablet 00:00: mouth in [place] 00 the Medical morning Branch and 1 tablet in the evening. Take with meals. meclizine 2021-05 Yes 25mg Take 1 [facility] 25 mg 0-11 tablet by [facility] tablet 00:00: mouth in [place] 00 the Medical morning Branch and 1 tablet at noon and 1 tablet in the evening. amiodarone 2021-05 Yes 200mg Take 1 [facility] 200 mg 0-11 tablet by [facility] tablet 00:00: mouth in [place] 00 the Medical morning. Branch aspirin 2021-05 Yes 81mg Take 1 [facility] (NOEL LOW 0-11 tablet by [facility] of DOSE 00:00: mouth in [place] ASPIRIN) 81 00 the Medical mg EC morning. Branch tablet carvediloL 2021-05 Yes 6.25mg Take 1 [facility] vers 6.25 mg 0-11 tablet by [facility] tablet 00:00: mouth in [place] 00 the Medical morning Branch and 1 tablet in the evening. Take with meals. meclizine 2021-05 Yes 25mg Take 1 [facility] 25 mg 0-11 tablet by [facility] tablet 00:00: mouth in [place] the Medical morning Branch and 1 tablet at noon and 1 tablet in the evening. amiodarone 2021-05 Yes 200mg Take 1 [facility] 200 mg 0-11 tablet by [facility] tablet 00:00: mouth in [place] the Medical morning. Branch aspirin 2021-05 Yes 81mg Take 1 [facility] (NOEL LOW 0-11 tablet by [facility] of DOSE 00:00: mouth in [place] ASPIRIN) 81 00 the Medical mg EC morning. Branch tablet carvediloL 2021-05 Yes 6.25mg Take 1 [facility] vers 6.25 mg 0-11 tablet by [facility] tablet 00:00: mouth in [place] 00 the Medical morning Branch and 1 tablet in the evening. Take with meals. meclizine 2021-05 Yes 25mg Take 1 [facility] 25 mg 0-11 tablet by [facility] tablet 00:00: mouth in [place] 00 the Medical morning Branch and 1 tablet at noon and 1 tablet in the evening. amiodarone 2021-05 Yes 200mg Take 1 [facility] 200 mg 0-11 tablet by [facility] tablet 00:00: mouth in [place] 00 the Medical morning. Branch aspirin 2021-05 Yes 81mg Take 1 [facility] (NOEL LOW 0-11 tablet by [facility] of DOSE 00:00: mouth in [place] ASPIRIN) 81 00 the Medical mg EC morning. Branch tablet carvediloL 2021-05 Yes 6.25mg Take 1 [facility] vers 6.25 mg 0-11 tablet by [facility] tablet 00:00: mouth in [place] 00 the Medical morning Branch and 1 tablet in the evening. Take with meals. meclizine 2021-05 Yes 25mg Take 1 [facility] 25 mg 0-11 tablet by [facility] tablet 00:00: mouth in [place] 00 the Medical morning Branch and 1 tablet at noon and 1 tablet in the evening. amiodarone 2021-05 Yes 200mg Take 1 [facility] 200 mg 0-11 tablet by [facility] tablet 00:00: mouth in [place] 00 the Medical morning. Branch aspirin 2021-05 Yes 81mg Take 1 [facility] (NOEL LOW 0-11 tablet by [facility] DOSE 00:00: mouth in [place] ASPIRIN) 81 00 the Medical mg EC morning. Branch tablet carvediloL 2021-05 Yes 6.25mg Take 1 [facility] vers 6.25 mg 0-11 tablet by [facility] tablet 00:00: mouth in [place] 00 the Medical morning Branch and 1 tablet in the evening. Take with meals. meclizine 2021-05 Yes 25mg Take 1 [facility] 25 mg 0-11 tablet by [facility] tablet 00:00: mouth in [place] the Medical morning Branch and 1 tablet at noon and 1 tablet in the evening. amiodarone 2021-05 Yes 200mg Take 1 [facility] 200 mg 0-11 tablet by [facility] tablet 00:00: mouth in [place] 00 the Medical morning. Branch aspirin 2021-05 Yes 81mg Take 1 [facility] (NOEL LOW 0-11 tablet by [facility] of DOSE 00:00: mouth in [place] ASPIRIN) 81 00 the Medical mg EC morning. Branch tablet carvediloL 2021-05 Yes 6.25mg Take 1 [facility] vers 6.25 mg 0-11 tablet by [facility] tablet 00:00: mouth in [place] 00 the Medical morning Branch and 1 tablet in the evening. Take with meals. meclizine 2021-05 Yes 25mg Take 1 [facility] 25 mg 0-11 tablet by [facility] tablet 00:00: mouth in [place] 00 the Medical morning Branch and 1 tablet at noon and 1 tablet in the evening. amiodarone 2021-05 Yes 200mg Take 1 [facility] 200 mg 0-11 tablet by [facility] tablet 00:00: mouth in [place] the morning. Branch aspirin 2021-05 Yes 81mg Take 1 [facility] (NOEL LOW 0-11 tablet by [facility] of DOSE 00:00: mouth in [place] ASPIRIN) 81 00 the Medical mg EC morning. Branch tablet carvediloL 2021-05 Yes 6.25mg Take 1 [facility] vers 6.25 mg 0-11 tablet by [facility] tablet 00:00: mouth in [place] 00 the Medical morning Branch and 1 tablet in the evening. Take with meals. meclizine 2021-05 Yes 25mg Take 1 [facility] 25 mg 0-11 tablet by [facility] tablet 00:00: mouth in [place] the Medical morning Branch and 1 tablet at noon and 1 tablet in the evening. amiodarone 2021-05 Yes 200mg Take 1 [facility] 200 mg 0-11 tablet by [facility] tablet 00:00: mouth in [place] the morning. Branch aspirin 81 2021-05 Yes 81mg Take 1 [facility] mg EC 0-11 tablet by [facility] tablet 00:00: mouth in [place] the morning. Branch carvediloL 2021-05 Yes 6.25mg Take 1 [facility] vers 6.25 mg 0-11 tablet by [facility] tablet 00:00: mouth in [place] the Medical morning Branch and 1 tablet in the evening. Take with meals. meclizine 2021-05 Yes 25mg Take 1 [facility] 25 mg 0-11 tablet by [facility] tablet 00:00: mouth in [place] the Medical morning Branch and 1 tablet at noon and 1 tablet in the evening. amiodarone 2021-05 Yes 200mg Take 1 [facility] 200 mg 0-11 tablet by [facility] tablet 00:00: mouth in [place] the morning. Branch aspirin 81 2021-05 Yes 81mg Take 1 [facility] mg EC 0-11 tablet by [facility] tablet 00:00: mouth in [place] the Medical morning. Branch carvediloL 2021-05 Yes 6.25mg Take 1 [facility] vers 6.25 mg 0-11 tablet by [facility] tablet 00:00: mouth in [place] the Medical morning Branch and 1 tablet in the evening. Take with meals. meclizine 2021-05 Yes 25mg Take 1 [facility] 25 mg 0-11 tablet by [facility] tablet 00:00: mouth in [place] the Medical morning Branch and 1 tablet at noon and 1 tablet in the evening. amiodarone 2021-05 Yes 200mg Take 1 [facility] 200 mg 0-11 tablet by [facility] tablet 00:00: mouth in [place] the morning. Branch aspirin 81 2021-05 Yes 81mg Take 1 [facility] mg EC 0-11 tablet by [facility] tablet 00:00: mouth in [place] the morning. Branch carvediloL 2021-05 Yes 6.25mg Take 1 [facility] vers 6.25 mg 0-11 tablet by [facility] tablet 00:00: mouth in [place] the Medical morning Branch and 1 tablet in the evening. Take with meals. meclizine 2021-05 Yes 25mg Take 1 [facility] 25 mg 0-11 tablet by [facility] tablet 00:00: mouth in [place] the Medical morning Branch and 1 tablet at noon and 1 tablet in the evening. amiodarone 2021-05 Yes 200mg Take 1 [facility] 200 mg 0-11 tablet by [facility] tablet 00:00: mouth in [place] the morning. Branch aspirin 81 2021-05 Yes 81mg Take 1 [facility] mg EC 0-11 tablet by [facility] tablet 00:00: mouth in [place] the morning. Branch carvediloL 2021-05 Yes 6.25mg Take 1 [facility] vers 6.25 mg 0-11 tablet by [facility] tablet 00:00: mouth in [place] the Medical morning Branch and 1 tablet in the evening. Take with meals. meclizine 2021-05 Yes 25mg Take 1 [facility] 25 mg 0-11 tablet by [facility] tablet 00:00: mouth in [place] the Medical morning Branch and 1 tablet at noon and 1 tablet in the evening. amiodarone 2021- Yes 200mg Take 1 [facility] 200 mg 0-11 tablet by [facility] tablet 00:00: mouth in [place] the Medical morning. Branch aspirin 81 2021-05 Yes 81mg Take 1 [facility] mg EC 0-11 tablet by [facility] tablet 00:00: mouth in [place] the Medical morning. Branch carvediloL 2021-05 Yes 6.25mg Take 1 [facility] vers 6.25 mg 0-11 tablet by [facility] tablet 00:00: mouth in [place] the Medical morning Branch and 1 tablet in the evening. Take with meals. meclizine 2021-05 Yes 25mg Take 1 [facility] 25 mg 0-11 tablet by [facility] tablet 00:00: mouth in [place] the Medical morning Branch and 1 tablet at noon and 1 tablet in the evening. amiodarone 2021-05 Yes 200mg Take 1 [facility] 200 mg 0-11 tablet by [facility] tablet 00:00: mouth in [place] the morning. Branch aspirin 81 2021-05 Yes 81mg Take 1 [facility] mg EC 0-11 tablet by [facility] tablet 00:00: mouth in [place] the morning. Branch carvediloL 2021-05 Yes 6.25mg Take 1 [facility] vers 6.25 mg 0-11 tablet by [facility] tablet 00:00: mouth in [place] the Medical morning Branch and 1 tablet in the evening. Take with meals. meclizine 2021-05 Yes 25mg Take 1 [facility] 25 mg 0-11 tablet by [facility] tablet 00:00: mouth in [place] the Medical morning Branch and 1 tablet at noon and 1 tablet in the evening. amiodarone 2021-05 Yes 200mg Take 1 [facility] 200 mg 0-11 tablet by [facility] tablet 00:00: mouth in [place] the morning. Branch aspirin 81 2021-05 Yes 81mg Take 1 [facility] mg EC 0-11 tablet by [facility] tablet 00:00: mouth in [place] the morning. Branch carvediloL 2021-05 Yes 6.25mg Take 1 [facility] vers 6.25 mg 0-11 tablet by [facility] tablet 00:00: mouth in [place] the Medical morning Branch and 1 tablet in the evening. Take with meals. meclizine 2021-05 Yes 25mg Take 1 [facility] 25 mg 0-11 tablet by [facility] tablet 00:00: mouth in [place] the Medical morning Branch and 1 tablet at noon and 1 tablet in the evening. amiodarone 2021-05 Yes 200mg Take 1 [facility] 200 mg 0-11 tablet by [facility] tablet 00:00: mouth in [place] the Medical morning. Branch aspirin 81 2021-05 Yes 81mg Take 1 [facility] mg EC 0-11 tablet by [facility] tablet 00:00: mouth in [place] the . Branch carvediloL 2021-05 Yes 6.25mg Take 1 [facility] vers 6.25 mg 0-11 tablet by [facility] tablet 00:00: mouth in [place] the Medical morning Branch and 1 tablet in the evening. Take with meals. meclizine 2021-05 Yes 25mg Take 1 [facility] 25 mg 0-11 tablet by [facility] tablet 00:00: mouth in [place] the morning Branch and 1 tablet at noon and 1 tablet in the evening. amiodarone 2021-05 Yes 200mg Take 1 [facility] 200 mg 0-11 tablet by [facility] tablet 00:00: mouth in [place] the . Branch aspirin 81 2021-05 Yes 81mg Take 1 [facility] mg EC 0-11 tablet by [facility] tablet 00:00: mouth in [place] the . Branch carvediloL 2021-05 Yes 6.25mg Take 1 [facility] vers 6.25 mg 0-11 tablet by [facility] tablet 00:00: mouth in [place] the morning Branch and 1 tablet in the evening. Take with meals. meclizine 2021-05 Yes 25mg Take 1 [facility] 25 mg 0-11 tablet by [facility] tablet 00:00: mouth in [place] the morning Branch and 1 tablet at noon and 1 tablet in the evening. amiodarone 2021-05 Yes 200mg Take 1 [facility] 200 mg 0-11 tablet by [facility] tablet 00:00: mouth in [place] the morning. Branch aspirin 81 2021-05 Yes 81mg Take 1 [facility] mg EC 0-11 tablet by [facility] tablet 00:00: mouth in [place] the morning. Branch carvediloL 2021-05 Yes 6.25mg Take 1 [facility] vers 6.25 mg 0-11 tablet by [facility] tablet 00:00: mouth in [place] the Medical morning Branch and 1 tablet in the evening. Take with meals. meclizine 2021-05 Yes 25mg Take 1 [facility] 25 mg 0-11 tablet by [facility] tablet 00:00: mouth in [place] the Medical morning Branch and 1 tablet at noon and 1 tablet in the evening. amiodarone 2021-05 Yes 200mg Take 1 [facility] 200 mg 0-11 tablet by [facility] tablet 00:00: mouth in [place] the . Branch aspirin 81 2021-05 Yes 81mg Take 1 [facility] mg EC 0-11 tablet by [facility] tablet 00:00: mouth in [place] the morning. Branch carvediloL 2021-05 Yes 6.25mg Take 1 [facility] vers 6.25 mg 0-11 tablet by [facility] tablet 00:00: mouth in [place] the morning Branch and 1 tablet in the evening. Take with meals. meclizine 2021-05 Yes 25mg Take 1 [facility] 25 mg 0-11 tablet by [facility] tablet 00:00: mouth in [place] the morning Branch and 1 tablet at noon and 1 tablet in the evening. amiodarone 2021-05 Yes 200mg Take 1 [facility] 200 mg 0-11 tablet by [facility] tablet 00:00: mouth in [place] the . Branch aspirin 81 2021-05 Yes 81mg Take 1 [facility] mg EC 0-11 tablet by [facility] tablet 00:00: mouth in [place] the morning. Branch carvediloL 2021-05 Yes 6.25mg Take 1 [facility] vers 6.25 mg 0-11 tablet by [facility] tablet 00:00: mouth in [place] the morning Branch and 1 tablet in the evening. Take with meals. meclizine 2021-05 Yes 25mg Take 1 [facility] 25 mg 0-11 tablet by [facility] tablet 00:00: mouth in [place] the morning Branch and 1 tablet at noon and 1 tablet in the evening. amiodarone 2021-05 Yes 200mg Take 1 [facility] 200 mg 0-11 tablet by [facility] tablet 00:00: mouth in [place] the morning. Branch aspirin 81 2021-05 Yes 81mg Take 1 [facility] mg EC 0-11 tablet by [facility] tablet 00:00: mouth in [place] the morning. Branch carvediloL 2021-05 Yes 6.25mg Take 1 [facility] vers 6.25 mg 0-11 tablet by [facility] tablet 00:00: mouth in [place] the morning Branch and 1 tablet in the evening. Take with meals. meclizine 2021-05 Yes 25mg Take 1 [facility] 25 mg 0-11 tablet by [facility] tablet 00:00: mouth in [place] the Medical morning Branch and 1 tablet at noon and 1 tablet in the evening. amiodarone 2021-05 Yes 200mg Take 1 [facility] 200 mg 0-11 tablet by [facility] tablet 00:00: mouth in [place] the morning. Branch aspirin 81 2021-05 Yes 81mg Take 1 [facility] mg EC 0-11 tablet by [facility] of tablet 00:00: mouth in [place] the morning. Branch carvediloL 2021-05 Yes 6.25mg Take 1 [facility] vers 6.25 mg 0-11 tablet by [facility] tablet 00:00: mouth in [place] the Medical morning Branch and 1 tablet in the evening. Take with meals. meclizine 2021-05 Yes 25mg Take 1 [facility] 25 mg 0-11 tablet by [facility] tablet 00:00: mouth in [place] the Medical morning Branch and 1 tablet at noon and 1 tablet in the evening. amiodarone 2021-05 Yes 200mg Take 1 [facility] 200 mg 0-11 tablet by [facility] tablet 00:00: mouth in [place] the morning. Branch aspirin 81 2021-05 Yes 81mg Take 1 [facility] mg EC 0-11 tablet by [facility] tablet 00:00: mouth in [place] the morning. Branch carvediloL 2021-05 Yes 6.25mg Take 1 [facility] vers 6.25 mg 0-11 tablet by [facility] tablet 00:00: mouth in [place] the Medical morning Branch and 1 tablet in the evening. Take with meals. meclizine 2021-05 Yes 25mg Take 1 [facility] 25 mg 0-11 tablet by [facility] tablet 00:00: mouth in [place] the Medical morning Branch and 1 tablet at noon and 1 tablet in the evening. amiodarone 2021-05 Yes 200mg Take 1 [facility] 200 mg 0-11 tablet by [facility] of tablet 00:00: mouth in [place] the morning. Branch aspirin 81 2021-05 Yes 81mg Take 1 [facility] mg EC 0-11 tablet by [facility] of tablet 00:00: mouth in [place] the Medical morning. Branch carvediloL 2021-05 Yes 6.25mg Take 1 [facility] vers 6.25 mg 0-11 tablet by [facility] tablet 00:00: mouth in [place] 00 the Medical morning Branch and 1 tablet in the evening. Take with meals. meclizine 2021-05 Yes 25mg Take 1 [facility] 25 mg 0-11 tablet by [facility] tablet 00:00: mouth in [place] 00 the Medical morning Branch and 1 tablet at noon and 1 tablet in the evening. amiodarone 2021-05 Yes 200mg Take 1 [facility] 200 mg 0-11 tablet by [facility] tablet 00:00: mouth in [place] 00 the Medical morning. Branch carvediloL 2021-05- No 6.25mg Take 1 [facility] winter 6.25 mg 0-11 11-08 tablet by [facility] tablet 00:00: 00:00 mouth in [place] 00 :00 the Medical morning Branch and 1 tablet in the evening. Take with meals. carvediloL 2021-05- No 6.25mg Take 1 [facility] winter 6.25 mg 0-11 11-08 tablet by [facility] tablet 00:00: 00:00 mouth in [place] 00 :00 the Medical morning Branch and 1 tablet in the evening. Take with meals. carvediloL 2021-05- No 6.25mg Take 1 [facility] winter 6.25 mg 0-11 11-08 tablet by [facility] tablet 00:00: 00:00 mouth in [place] 00 :00 the Medical morning Branch and 1 tablet in the evening. Take with meals. amiodarone 2021-05- No 200mg Take 1 [facility] vers 200 mg 0-11 11-07 tablet by [facility] tablet 00:00: 00:00 mouth in [place] 00 :00 the Medical morning. Branch amiodarone 2021-05- No 200mg Take 1 Uni vers 200 mg 0-11 11-07 tablet by ity of tablet 00:00: 00:00 mouth in [place] 00 :00 the Medical morning. Branch amiodarone 2021-05- No 200mg Take 1 Uni vers 200 mg 0-11 11-07 tablet by ity of tablet 00:00: 00:00 mouth in [place] 00 :00 the Medical morning. Branch amiodarone 2021-05- No 200mg Take 1 Uni vers 200 mg 003-25 tablet by ity of tablet 00:00: 00:00 mouth in [place] 00 :00 the Medical morning. Branch amiodarone 2021-05- No 200mg Take 1 Uni vers 200 mg 003-25 tablet by ity of tablet 00:00: 00:00 mouth in [place] 00 :00 the Medical morning. Branch bumetanide 2-0 Yes 1mg Take 1 Unive rs 1 mg tablet 7-19 tablet by ity of 00:00: mouth in [place] 00 the Medical morning Branch and 1 tablet in the evening. bumetanide 2-0 Yes 1mg Take 1 Unive rs 1 mg tablet 7-19 tablet by ity of 00:00: mouth in [place] 00 the Medical morning Branch and 1 tablet in the evening. bumetanide 2-0 Yes 1mg Take 1 Un[facility] rs 1 mg tablet 7-19 tablet by ity of 00:00: mouth in [place] [address] the Medical morning Branch and 1 tablet in the evening. bumetanide 2-0 Yes 1mg Take 1 Unive rs 1 mg tablet 7-19 tablet by ity of 00:00: mouth in [place] [address] the Medical morning Branch and 1 tablet in the evening. bumetanide 2-0 Yes 1mg Take 1 Unive rs 1 mg tablet 7-19 tablet by ity of 00:00: mouth in [place] [address] the Medical morning Branch and 1 tablet in the evening. bumetanide 2-0 Yes 1mg Take 1 Unive rs 1 mg tablet 7-19 tablet by ity of 00:00: mouth in [place] [address] the Medical morning Branch and 1 tablet in the evening. bumetanide 2-0 Yes 1mg Take 1 Unive rs 1 mg tablet 7-19 tablet by ity of 00:00: mouth in [place] [address] the Medical morning Branch and 1 tablet in the evening. bumetanide 2022-0 Yes 1mg Take 1 Unive rs 1 mg tablet 7-19 tablet by ity of 00:00: mouth in [place] [address] the Medical morning Branch and 1 tablet in the evening. bumetanide 2022-0 Yes 1mg Take 1 Unive rs 1 mg tablet 7-19 tablet by ity of 00:00: mouth in [place] [address] the Medical morning Branch and 1 tablet in the evening. bumetanide 2022-0 Yes 1mg Take 1 Unive rs 1 mg tablet 7-19 tablet by ity of 00:00: mouth in [place] 00 the Medical morning Branch and 1 tablet in the evening. bumetanide 2022-0 Yes 1mg Take 1 Unive rs 1 mg tablet 7-19 tablet by ity of 00:00: mouth in [place] 00 the Medical morning Branch and 1 tablet in the evening. bumetanide 2022-0 Yes 1mg Take 1 Unive rs 1 mg tablet 7-19 tablet by ity of 00:00: mouth in [place] 00 the Medical morning Branch and 1 tablet in the evening. bumetanide 2022-0 Yes 1mg Take 1 Unive rs 1 mg tablet 7-19 tablet by ity of 00:00: mouth in [place] [address] the Medical morning Branch and 1 tablet in the evening. bumetanide 2022-0 Yes 1mg Take 1 Unive rs 1 mg tablet 7-19 tablet by ity of 00:00: mouth in [place] 00 the Medical morning Branch and 1 tablet in the evening. bumetanide 2-0 Yes 1mg Take 1 Un[facility] rs 1 mg tablet 7-19 tablet by ity of 00:00: mouth in [place] [address] the Medical morning Branch and 1 tablet in the evening. bumetanide 2022-0 Yes 1mg Take 1 Unive rs 1 mg tablet 7-19 tablet by ity of 00:00: mouth in [place] [address] the Medical morning Branch and 1 tablet in the evening. bumetanide 2-0 Yes 1mg Take 1 Unive rs 1 mg tablet 7-19 tablet by ity of 00:00: mouth in [place] 00 the Medical morning Branch and 1 tablet in the evening. bumetanide 2022-0 Yes 1mg Take 1 Unive rs 1 mg tablet 7-19 tablet by ity of 00:00: mouth in [place] [address] the Medical morning Branch and 1 tablet in the evening. bumetanide 2022-0 Yes 1mg Take 1 Unive rs 1 mg tablet 7-19 tablet by ity of 00:00: mouth in [place] [address] the Medical morning Branch and 1 tablet in the evening. bumetanide 2022-0 Yes 1mg Take 1 Unive rs 1 mg tablet 7-19 tablet by ity of 00:00: mouth in [place] 00 the Medical morning Branch and 1 tablet in the evening. bumetanide 2021-0 2022- No 1mg Take 1 Univ ers 1 mg tablet 12-04 tablet by it y of 00:00: 00:00 mouth in [place] 00 :00 the Medical morning Branch and 1 tablet in the evening. Mupirocin 2 Mupirocin 2 2021-2021- No 1{appli BID Mupirocin % % 12-04 07-24 cation} 2 % 00:00: 00:00 00 :00 glimepiride 2021-0 Yes 2mg Take 2 mg U nivers 2 mg tablet 4-08 by mouth ity of 16:21: daily with [place] [address] breakfast. Medical Branch glimepiride 2021-0 Yes 2mg Take 2 mg U nivers 2 mg tablet 4-08 by mouth ity of 16:21: daily with [place] [address] breakfast. Medical Branch glimepiride 2021-0 Yes 2mg Take 2 mg U nivers 2 mg tablet 4-08 by mouth ity of 16:21: daily with [place] [address] breakfast. Medical Branch glimepiride 2021-0 Yes 2mg Take 2 mg U nivers 2 mg tablet 4-08 by mouth ity of 16:21: daily with [place] [address] breakfast. Medical Branch glimepiride 2021-0 Yes 2mg Take 2 mg U nivers 2 mg tablet 4-08 by mouth ity of 16:21: daily with [place] [address] breakfast. Medical Branch glimepiride 2021-0 Yes 2mg Take 2 mg U nivers 2 mg tablet 4-08 by mouth ity of 16:21: daily with [place] [address] breakfast. Medical Branch glimepiride 2021-0 Yes 2mg Take 2 mg U nivers 2 mg tablet 4-08 by mouth ity of 16:21: daily with [place] [address] breakfast. Medical Branch glimepiride 2-0 Yes 2mg Take 2 mg U nivers 2 mg tablet 4-08 by mouth ity of 16:21: daily with [place] [address] breakfast. Medical Branch glimepiride 2021-0 Yes 2mg Take 2 mg U nivers 2 mg tablet 4-08 by mouth ity of 16:21: daily with [place] [address] breakfast. Medical Branch glimepiride 2-0 Yes 2mg Take 2 mg U nivers 2 mg tablet 4-08 by mouth ity of 16:21: daily with [place] [address] breakfast. Medical Branch glimepiride 2-0 Yes 2mg Take 2 mg U nivers 2 mg tablet 4-08 by mouth ity of 16:21: daily with [place] [address] breakfast. Medical Branch glimepiride 2-0 Yes 2mg Take 2 mg U nivers 2 mg tablet 4-08 by mouth ity of 16:21: daily with [place] [address] breakfast. Medical Branch glimepiride 2-0 Yes 2mg Take 2 mg U nivers 2 mg tablet 4-08 by mouth ity of 16:21: daily with [place] [address] breakfast. Medical Branch glimepiride 2-0 Yes 2mg Take 2 mg U nivers 2 mg tablet 4-08 by mouth ity of 16:21: daily with [place] [address] breakfast. Medical Branch glimepiride 2021-0 Yes 2mg Take 2 mg U nivers 2 mg tablet 4-08 by mouth ity of 16:21: daily with [place] [address] breakfast. Medical Branch glimepiride 2-0 Yes 2mg Take 2 mg U nivers 2 mg tablet 4-08 by mouth ity of 16:21: daily with [place] [address] breakfast. Medical Branch glimepiride 2021-0 Yes 2mg Take 2 mg U nivers 2 mg tablet 4-08 by mouth ity of 16:21: daily with [place] [address] breakfast. Medical Branch glimepiride 2021-0 Yes 2mg Take 2 mg U nivers 2 mg tablet 4-08 by mouth ity of 16:21: daily with [place] [address] breakfast. Medical Branch glimepiride 2-0 Yes 2mg Take 2 mg U nivers 2 mg tablet 4-08 by mouth ity of 16:21: daily with [place] [address] breakfast. Medical Branch glimepiride 2-0 Yes 2mg Take 2 mg U nivers 2 mg tablet 4-08 by mouth ity of 16:21: daily with [place] [address] breakfast. Medical Branch glimepiride 2-0 Yes 2mg Take 2 mg U nivers 2 mg tablet 4-08 by mouth ity of 16:21: daily with [place] [address] breakfast. Medical Branch glimepiride 2-0 Yes 2mg Take 2 mg U nivers 2 mg tablet 4-08 by mouth ity of 16:21: daily with [place] [address] breakfast. Medical Branch glimepiride 2021-0 Yes 2mg Take 2 mg U nivers 2 mg tablet 4-08 by mouth ity of 16:21: daily with [place] [address] breakfast. [facility] Branch glimepiride 2021-0 Yes 2mg Take 2 mg U nivers 2 mg tablet 4-08 by mouth ity of 16:21: daily with [place] [address] breakfast. [facility] Branch spironolact 2021-0 Yes [id number] 12.5mg Take 0.5 Univers one 25 mg 4-08 tablets by ity of tablet 00:00: mouth [place] 00 daily. Medical Branch bumetanide 2021-0 Yes [id number] 1mg Take 1 Univers 1 mg tablet 4-08 tablet by ity of 00:00: mouth [place] 00 daily. [facility] Branch empaglifloz 0 Yes [id number] 10mg Take 1 Univers in 10 mg 4-08 tablet by ity of 00:00: mouth [place] 00 daily. [facility] Branch spironolact 2021-0 Yes [id number] 12.5mg Take 0.5 Univers one 25 mg 4-08 tablets by ity of tablet 00:00: mouth [place] 00 daily. Medical Branch empaglifloz 0 Yes [id number] 10mg Take 1 Univers in 10 mg 4-08 tablet by ity of 00:00: mouth [place] 00 daily. [facility] Branch spironolact 0 Yes [id number] 12.5mg Take 0.5 Univers one 25 mg 4-08 tablets by ity of tablet 00:00: mouth [place] 00 daily. Medical Branch empaglifloz 2021-0 Yes [id number] 10mg Take 1 Univers in 10 mg 4-08 tablet by ity of 00:00: mouth [place] 00 daily. [facility] Branch spironolact 2021-0 Yes [id number] 12.5mg Take 0.5 Univers one 25 mg 4-08 tablets by ity of tablet 00:00: mouth [place] 00 daily. [facility] Branch empaglifloz 2021-0 Yes [id number] 10mg Take 1 Univers in 10 mg 4-08 tablet by ity of 00:00: mouth [place] 00 daily. [facility] Branch spironolact 2021-0 Yes [id number] 12.5mg Take 0.5 Univers one 25 mg 4-08 tablets by ity of tablet 00:00: mouth [place] 00 daily. Medical Branch empaglifloz 2-0 Yes [id number] 10mg Take 1 Univers in 10 mg 4-08 tablet by ity of 00:00: mouth [place] 00 daily. Medical Branch spironolact 2021-0 Yes [id number] 12.5mg Take 0.5 Univers one 25 mg 4-08 tablets by ity of tablet 00:00: mouth [place] 00 daily. Medical Branch empaglifloz 2-0 Yes [id number] 10mg Take 1 Univers in 10 mg 4-08 tablet by ity of 00:00: mouth [place] 00 daily. [facility] Branch spironolact 2021-0 Yes [id number] 12.5mg Take 0.5 Univers one 25 mg 4-08 tablets by ity of tablet 00:00: mouth [place] 00 daily. [facility] Branch empaglifloz 2021-0 Yes [id number] 10mg Take 1 Univers in 10 mg 4-08 tablet by ity of 00:00: mouth [place] 00 daily. [facility] Branch spironolact 2021-0 Yes [id number] 12.5mg Take 0.5 Univers one 25 mg 4-08 tablets by ity of tablet 00:00: mouth [place] 00 daily. [facility] Branch empaglifloz 2021-0 Yes [id number] 10mg Take 1 Univers in 10 mg 4-08 tablet by ity of 00:00: mouth [place] 00 daily. [facility] Branch spironolact 2021-0 Yes [id number] 12.5mg Take 0.5 Univers one 25 mg 4-08 tablets by ity of tablet 00:00: mouth [place] 00 daily. Medical Branch empaglifloz 2-0 Yes [id number] 10mg Take 1 Univers in 10 mg 4-08 tablet by ity of 00:00: mouth [place] 00 daily. [facility] Branch spironolact 2-0 Yes [id number] 12.5mg Take 0.5 Univers one 25 mg 4-08 tablets by ity of tablet 00:00: mouth [place] 00 daily. [facility] Branch empaglifloz 2-0 Yes [id number] 10mg Take 1 Univers in 10 mg 4-08 tablet by ity of 00:00: mouth [place] 00 daily. [facility] Branch spironolact 2-0 Yes [id number] 12.5mg Take 0.5 Univers one 25 mg 4-08 tablets by ity of tablet 00:00: mouth [place] 00 daily. Medical Branch empaglifloz 2-0 Yes [id number] 10mg Take 1 Univers in 10 mg 4-08 tablet by ity of 00:00: mouth [place] 00 daily. Medical Branch spironolact 2021-0 Yes [id number] 12.5mg Take 0.5 Univers one 25 mg 4-08 tablets by ity of tablet 00:00: mouth [place] 00 daily. Medical Branch empaglifloz 2021-0 Yes [id number] 10mg Take 1 Univers in 10 mg 4-08 tablet by ity of 00:00: mouth [place] 00 daily. [facility] Branch spironolact 2021-0 Yes [id number] 12.5mg Take 0.5 Univers one 25 mg 4-08 tablets by ity of tablet 00:00: mouth [place] 00 daily. Medical Branch empaglifloz 2021-0 Yes [id number] 10mg Take 1 Univers in 10 mg 4-08 tablet by ity of 00:00: mouth [place] 00 daily. Medical Branch spironolact 2021-0 Yes [id number] 12.5mg Take 0.5 Univers one 25 mg 4-08 tablets by ity of tablet 00:00: mouth [place] 00 daily. Medical Branch empaglifloz 2021-0 Yes [id number] 10mg Take 1 Univers in 10 mg 4-08 tablet by ity of 00:00: mouth [place] 00 daily. Medical Branch spironolact 2021-0 Yes [id number] 12.5mg Take 0.5 Univers one 25 mg 4-08 tablets by ity of tablet 00:00: mouth [place] 00 daily. Medical Branch empaglifloz 2-0 Yes [id number] 10mg Take 1 Univers in 10 mg 4-08 tablet by ity of 00:00: mouth [place] 00 daily. Medical Branch spironolact 2-0 Yes [id number] 12.5mg Take 0.5 Univers one 25 mg 4-08 tablets by ity of tablet 00:00: mouth [place] 00 daily. Medical Branch empaglifloz 2-0 Yes [id number] 10mg Take 1 Univers in 10 mg 4-08 tablet by ity of 00:00: mouth [place] 00 daily. Medical Branch spironolact 2-0 Yes [id number] 12.5mg Take 0.5 Univers one 25 mg 4-08 tablets by ity of tablet 00:00: mouth [place] 00 daily. [facility] Branch empaglifloz 2-0 Yes [id number] 10mg Take 1 Univers in 10 mg 4-08 tablet by ity of 00:00: mouth [place] 00 daily. [facility] Branch spironolact 2-0 Yes [id number] 12.5mg Take 0.5 Univers one 25 mg 4-08 tablets by ity of tablet 00:00: mouth [place] 00 daily. [facility] Branch empaglifloz 2-0 Yes [id number] 10mg Take 1 Univers in 10 mg 4-08 tablet by ity of 00:00: mouth [place] 00 daily. [facility] Branch spironolact 2-0 Yes [id number] 12.5mg Take 0.5 Univers one 25 mg 4-08 tablets by ity of tablet 00:00: mouth [place] 00 daily. [facility] Branch empaglifloz 2-0 Yes [id number] 10mg Take 1 Univers in 10 mg 4-08 tablet by ity of 00:00: mouth [place] 00 daily. [facility] Branch spironolact 2021-0 Yes [id number] 12.5mg Take 0.5 Univers one 25 mg 4-08 tablets by ity of tablet 00:00: mouth [place] 00 daily. [facility] Branch empaglifloz 2-0 Yes [id number] 10mg Take 1 Univers in 10 mg 4-08 tablet by ity of 00:00: mouth [place] 00 daily. [facility] Branch spironolact 2-0 Yes [id number] 12.5mg Take 0.5 Univers one 25 mg 4-08 tablets by ity of tablet 00:00: mouth [place] 00 daily. [facility] Branch empaglifloz 2-0 Yes [id number] 10mg Take 1 Univers in 10 mg 4-08 tablet by ity of 00:00: mouth [place] 00 daily. [facility] Branch spironolact 2-0 Yes [id number] 12.5mg Take 0.5 Univers one 25 mg 4-08 tablets by ity of tablet 00:00: mouth [place] 00 daily. [facility] empaglifloz 2-0 Yes [id number] 10mg Take 1 Univers in 10 mg 4-08 tablet by ity of 00:00: mouth [place] 00 daily. [facility] Branch spironolact 2-0 Yes [id number] 12.5mg Take 0.5 Univers one 25 mg 4-08 tablets by ity of tablet 00:00: mouth [place] 00 daily. Medical Branch empaglifloz 2-0 Yes [id number] 10mg Take 1 Univers in 10 mg 4-08 tablet by ity of 00:00: mouth [place] 00 daily. Medical Branch spironolact 2-0 Yes [id number] 12.5mg Take 0.5 Univers one 25 mg 4-08 tablets by ity of tablet 00:00: mouth [place] 00 daily. Medical Branch empaglifloz 2-0 Yes [id number] 10mg Take 1 Univers in 10 mg 4-08 tablet by ity of 00:00: mouth [place] 00 daily. [facility] Branch spironolact 2-0 Yes [id number] 12.5mg Take 0.5 Univers one 25 mg 4-08 tablets by ity of tablet 00:00: mouth [place] 00 daily. [facility] Branch empaglifloz 2-0 Yes [id number] 10mg Take 1 Univers in 10 mg 4-08 tablet by ity of 00:00: mouth [place] 00 daily. [facility] Branch spironolact 2-0 Yes [id number] 12.5mg Take 0.5 Univers one 25 mg 4-08 tablets by ity of tablet 00:00: mouth [place] 00 daily. [facility] Branch empaglifloz 2-0 Yes [id number] 10mg Take 1 Univers in 10 mg 4-08 tablet by ity of 00:00: mouth [place] 00 daily. Medical Branch spironolact 2-0 Yes [id number] 12.5mg Take 0.5 Univers one 25 mg 4-08 tablets by ity of tablet 00:00: mouth [place] 00 daily. Medical Branch empaglifloz 2-0 Yes [id number] 10mg Take 1 Univers in 10 mg 4-08 tablet by ity of 00:00: mouth [place] 00 daily. [facility] Branch spironolact 2-0 Yes [id number] 12.5mg Take 0.5 Univers one 25 mg 4-08 tablets by ity of tablet 00:00: mouth [place] 00 daily. [facility] Branch empaglifloz 2-0 Yes [id number] 10mg Take 1 Univers in 10 mg 4-08 tablet by ity of 00:00: mouth [place] 00 daily. [facility] Branch spironolact 2-0 Yes [id number] 12.5mg Take 0.5 Univers one 25 mg 4-08 tablets by ity of tablet 00:00: mouth [place] 00 daily. Medical Branch empaglifloz 2-0 Yes [id number] 10mg Take 1 Univers in 10 mg 4-08 tablet by ity of 00:00: mouth [place] 00 daily. [facility] Branch spironolact 2022-0 Yes [id number] 12.5mg Take 0.5 Univers one 25 mg 4-08 tablets by ity of tablet 00:00: mouth [place] 00 daily. [facility] Branch empaglifloz 2-0 Yes [id number] 10mg Take 1 Univers in 10 mg 4-08 tablet by ity of 00:00: mouth [place] 00 daily. [facility] Branch spironolact 2-0 Yes [id number] 12.5mg Take 0.5 Univers one 25 mg 4-08 tablets by ity of tablet 00:00: mouth [place] 00 daily. [facility] Branch empaglifloz 2-0 Yes [id number] 10mg Take 1 Univers in 10 mg 4-08 tablet by ity of 00:00: mouth [place] 00 daily. [facility] Branch spironolact 2-0 Yes [id number] 12.5mg Take 0.5 Univers one 25 mg 4-08 tablets by ity of tablet 00:00: mouth [place] 00 daily. [facility] Branch empaglifloz 2-0 Yes [id number] 10mg Take 1 Univers in 10 mg 4-08 tablet by ity of 00:00: mouth [place] 00 daily. Medical Branch empaglifloz 2-0 Yes [id number] 10mg Take 1 Univers in 10 mg 4-08 tablet by ity of 00:00: mouth [place] 00 daily. [facility] Branch empaglifloz 2022-0 Yes [id number] 10mg Take 1 Univers in 10 mg 4-08 tablet by ity of 00:00: mouth [place] 00 daily. [facility] Branch empaglifloz 2022-0 3- No [id number] 10mg Take 1 Univers in 10 mg 4-08 04-03 tablet by ity o f 00:00: 00:00 mouth [place] 00 :00 daily. [facility] Branch empaglifloz 2022-0 2023- No [id number] 10mg Take 1 Univers in 10 mg 08-24 tablet by ity o f 00:00: 00:00 mouth [place] 00 :00 daily. Medical Branch empaglifloz 2022- No [id number] 10mg Take 1 Univers in 10 mg 08-24 tablet by ity o f 00:00: 00:00 mouth [place] 00 :00 daily. Medical Branch spironolact 2022- No [id number] 12.5mg Take 0.5 Univers one 25 mg 08-24 tablets by ity of tablet 00:00: 00:00 mouth [place] 00 :00 daily. Medical Branch bumetanide 2021- No [id number] 1mg Take 1 Univers 1 mg tablet [...] Medical times Branch daily with meals. NOEL Yes Take by Univers ASPIRIN 2-01 mouth. ity of ORAL 14:05: [place] 56 Medical Branch metformin Yes 500mg Take 500 [...] by ity of tablet 14:05: mouth 2 [place] 56 (two) Medical times Branch daily with meals. NOEL 2021-0 Yes Take by Univers ASPIRIN 2-01 mouth. ity of ORAL 14:05: [place] [address] Medical Branch metformin 2021-0 Yes 500mg Take [...] by ity of tablet 14:05: mouth 2 [place] 56 (two) Medical times Branch daily with meals. NOEL 2021-0 Yes Take by Univers ASPIRIN 2-01 mouth. ity of ORAL 14:05: [place] [address] Medical Branch metformin 2021-0 Yes 500mg Take [...] by ity of tablet 14:05: mouth 2 [place] 56 (two) Medical times Branch daily with meals. NOEL 2021-0 Yes Take by Univers ASPIRIN 2-01 mouth. ity of ORAL 14:05: [place] [address] Medical Branch metformin 2021-0 Yes 500mg Take [...] by ity of tablet 14:05: mouth 2 [place] [address] (two) Medical times Branch daily with meals. NOEL 2021-0 Yes Take by Univers ASPIRIN 2-01 mouth. ity of ORAL 14:05: [place] [address] Medical Branch metformin 2021-0 Yes 500mg Take 500 Uni vers HCl 2-01 mg by ity of (METFORMIN 14:05: [place] (two) Medical times Branch daily with meals. sacubitriL- 2021-0 Yes 1{tbl} Take 1 Un winter valsartan 2-01 tablet by ity o f 49-51 mg 14:05: mouth 2 [place] tablet 56 (two) Medical times Branch daily. carvediloL 2021-0 Yes 12.5mg Take 12.5 Univers 12.5 mg 2-01 mg by ity of tablet 14:05: mouth 2 [place] [address] (two) Medical times Branch daily with meals. NOEL 2021-0 Yes Take by Univers ASPIRIN 2-01 mouth. ity of ORAL 14:05: [place] [address] Medical Branch metformin 2021-0 Yes 500mg Take [...] by ity of tablet 14:05: mouth 2 [place] [address] (two) Medical times Branch daily with meals. NOEL 2021-0 Yes Take by Univers ASPIRIN 2-01 mouth. ity of ORAL 14:05: [place] [address] Medical Branch metformin 2021-0 Yes 500mg Take [...] ASPIRIN 2-01 mouth. ity of ORAL 14:05: [place] [address] Medical Branch metformin 2-0 Yes 500mg Take [...] by ity of tablet 14:05: mouth 2 [place] [address] (two) Medical times Branch daily with meals. NOEL 2-0 Yes Take by Univers ASPIRIN 2-01 mouth. ity of ORAL 14:05: [place] [address] Medical Branch metformin 2-0 Yes 500mg Take [...] by ity of tablet 14:05: mouth 2 [place] 56 (two) Medical times Branch daily with meals. NOEL 2-0 Yes Take by Univers ASPIRIN 2-01 mouth. ity of ORAL 14:05: [place] [address] Medical Branch metformin 2-0 Yes 500mg Take [...] 30 tab, 3 Refill(s), Pharmacy: [facility], 154.94, cm, 03/22/21 13:32:00 CDT, Height, 119.545, kg, 03/22/21 13:32:00 CDT, Weight tizanidine 2020-05 Yes 4 mg = 1 Mem oria 4 MG Oral 1-04 tab, PO, l Tablet 18:45: Bedtime, # [place] nn [Zanaflex] 00 30 tab, 3 Refill(s), Pharmacy: [facility], 154.94, cm, 03/22/21 13:32:00 CDT, Height, 119.545, kg, 03/22/21 13:32:00 CDT, Weight tizanidine 2020- Yes 4 mg = 1 Mem oria 4 MG Oral 1-04 tab, PO, l Tablet 18:45: Bedtime, # [place] [Zanaflex] 00 30 tab, 3 Refill(s), Pharmacy: [facility], 154.94, cm, 03/22/21 13:32:00 CDT, Height, 119.545, kg, 03/22/21 13:32:00 CDT, Weight tizanidine 2020- Yes 4 mg = 1 Mem oria 4 MG Oral 1-04 tab, PO, l Tablet 18:45: Bedtime, # [place] [Zanaflex] 00 30 tab, 3 Refill(s), Pharmacy: [facility], 154.94, cm, 03/22/21 13:32:00 CDT, Height, 119.545, kg, 03/22/21 13:32:00 CDT, Weight tizanidine 2020- Yes 4 mg = 1 Mem oria 4 MG Oral 1-04 tab, PO, l Tablet 18:45: Bedtime, # [place] [Zanaflex] 00 30 tab, 3 Refill(s), Pharmacy: [facility], 154.94, cm, 03/22/21 13:32:00 CDT, Height, 119.545, kg, 03/22/21 13:32:00 CDT, Weight tizanidine 2020- Yes 4 mg = 1 Mem oria 4 MG Oral 1-04 tab, PO, l Tablet 18:45: Bedtime, # [place] [Zanaflex] 00 30 tab, 3 Refill(s), Pharmacy: [facility], 154.94, cm, 03/22/21 13:32:00 CDT, Height, 119.545, kg, 03/22/21 13:32:00 CDT, Weight tizanidine 2020- Yes 4 mg = 1 Mem oria 4 MG Oral 1-04 tab, PO, l Tablet 18:45: Bedtime, # [place] [Zanaflex] 00 30 tab, 3 Refill(s), Pharmacy: [facility], 154.94, cm, 03/22/21 13:32:00 CDT, Height, 119.545, kg, 03/22/21 13:32:00 CDT, Weight tizanidine 2020- Yes 4 mg = 1 Mem oria 4 MG Oral 1-04 tab, PO, l Tablet 18:45: Bedtime, # [place] [facility] [Zanaflex] 00 30 tab, 3 Refill(s), Pharmacy: [facility], 154.94, cm, 03/22/21 13:32:00 CDT, Height, 119.545, kg, 03/22/21 13:32:00 CDT, Weight tizanidine 2020- Yes 4 mg = 1 Mem oria 4 MG Oral 1-04 tab, PO, l Tablet 18:45: Bedtime, # [place] [facility] [Zanaflex] 00 30 tab, 3 Refill(s), Pharmacy: [facility], 154.94, cm, 03/22/21 13:32:00 CDT, Height, 119.545, kg, 03/22/21 13:32:00 CDT, Weight tizanidine 2020- Yes 4 mg = 1 Mem oria 4 MG Oral 1-04 tab, PO, l Tablet 18:45: Bedtime, # [place] [facility] [Zanaflex] 00 30 tab, 3 Refill(s), Pharmacy: [facility], 154.94, cm, 03/22/21 13:32:00 CDT, Height, 119.545, kg, 03/22/21 13:32:00 CDT, Weight tizanidine 2020- Yes 4 mg = 1 Mem oria 4 MG Oral 1-04 tab, PO, l Tablet 18:45: Bedtime, # [place] [facility] [Zanaflex] 00 30 tab, 3 Refill(s), Pharmacy: [facility], 154.94, cm, 03/22/21 13:32:00 CDT, Height, 119.545, kg, 03/22/21 13:32:00 CDT, Weight tizanidine 2020-05 Yes 4 mg = 1 Mem oria 4 MG Oral 1-04 tab, PO, l Tablet 18:45: Bedtime, # [place] [facility] [Zanaflex] 00 30 tab, 3 Refill(s), Pharmacy: [facility], 154.94, cm, 03/22/21 13:32:00 CDT, Height, 119.545, kg, 03/22/21 13:32:00 CDT, Weight tizanidine 2020-05 Yes 4 mg = 1 Mem oria 4 MG Oral 1-04 tab, PO, l Tablet 18:45: Bedtime, # [place] [facility] [Zanaflex] 00 30 tab, 3 Refill(s), Pharmacy: [facility], 154.94, cm, 03/22/21 13:32:00 CDT, Height, 119.545, kg, 03/22/21 13:32:00 CDT, Weight tizanidine 2020-05 Yes 4 mg = 1 Mem oria 4 MG Oral 1-04 tab, PO, l Tablet 18:45: Bedtime, # [place] [facility] [Zanaflex] 00 30 tab, 3 Refill(s), Pharmacy: [facility], 154.94, cm, 03/22/21 13:32:00 CDT, Height, 119.545, kg, 03/22/21 13:32:00 CDT, Weight tizanidine 2020-05 Yes 4 mg = 1 Mem oria 4 MG Oral 1-04 tab, PO, l Tablet 18:45: Bedtime, # Savana nn [Zanaflex] 00 30 tab, 3 Refill(s), Pharmacy: [facility], 154.94, cm, 03/22/21 13:32:00 CDT, Height, 119.545, kg, 03/22/21 13:32:00 CDT, Weight tizanidine 2020-05 Yes 4 mg = 1 Mem oria 4 MG Oral 1-04 tab, PO, l Tablet 18:45: Bedtime, # Savana nn [Zanaflex] 00 30 tab, 3 Refill(s), Pharmacy: [facility], 154.94, cm, 03/22/21 13:32:00 CDT, Height, 119.545, kg, 03/22/21 13:32:00 CDT, Weight tizanidine 2020- Yes 4 mg = 1 Mem oria 4 MG Oral 1-04 tab, PO, l Tablet 18:45: Bedtime, # Savana nn [Zanaflex] 00 30 tab, 3 Refill(s), Pharmacy: [facility], 154.94, cm, 03/22/21 13:32:00 CDT, Height, 119.545, kg, 03/22/21 13:32:00 CDT, Weight tizanidine 2020-05 Yes 4 mg = 1 Mem oria 4 MG Oral 1-04 tab, PO, l Tablet 18:45: Bedtime, # Savana nn [Zanaflex] 00 30 tab, 3 Refill(s), Pharmacy: [facility], 154.94, cm, 03/22/21 13:32:00 CDT, Height, 119.545, kg, 03/22/21 13:32:00 CDT, Weight tizanidine 2020-05 Yes 4 mg = 1 Mem oria 4 MG Oral 1-04 tab, PO, l Tablet 18:45: Bedtime, # Savana nn [Zanaflex] 00 30 tab, 3 Refill(s), Pharmacy: [facility], 154.94, cm, 03/22/21 13:32:00 CDT, Height, 119.545, kg, 03/22/21 13:32:00 CDT, Weight tizanidine 2020- Yes 4 mg = 1 Mem oria 4 MG Oral 1-04 tab, PO, l Tablet 18:45: Bedtime, # Savana nn [Zanaflex] 00 30 tab, 3 Refill(s), Pharmacy: [facility], 154.94, cm, 03/22/21 13:32:00 CDT, Height, 119.545, kg, 03/22/21 13:32:00 CDT, Weight tizanidine 2020- Yes 4 mg = 1 Mem oria 4 MG Oral 1-04 tab, PO, l Tablet 18:45: Bedtime, # Savana nn [Zanaflex] 00 30 tab, 3 Refill(s), Pharmacy: [facility], 154.94, cm, 03/22/21 13:32:00 CDT, Height, 119.545, kg, 03/22/21 13:32:00 CDT, Weight tizanidine 2020- Yes 4 mg = 1 Mem oria 4 MG Oral 1-04 tab, PO, l Tablet 18:45: Bedtime, # Savana nn [Zanaflex] 00 30 tab, 3 Refill(s), Pharmacy: [facility], 154.94, cm, 03/22/21 13:32:00 CDT, Height, 119.545, kg, 03/22/21 13:32:00 CDT, Weight tizanidine 2020- Yes 4 mg = 1 Mem oria 4 MG Oral 1-04 tab, PO, l Tablet 18:45: Bedtime, # Savana nn [Zanaflex] 00 30 tab, 3 Refill(s), Pharmacy: [facility], 154.94, cm, 03/22/21 13:32:00 CDT, Height, 119.545, kg, 03/22/21 13:32:00 CDT, Weight tizanidine 2020- Yes 4 mg = 1 Mem oria 4 MG Oral 1-04 tab, PO, l Tablet 18:45: Bedtime, # Savana nn [Zanaflex] 00 30 tab, 3 Refill(s), Pharmacy: [facility], 154.94, cm, 03/22/21 13:32:00 CDT, Height, 119.545, kg, 03/22/21 13:32:00 CDT, Weight tizanidine 2020- Yes 4 mg = 1 Mem oria 4 MG Oral 1-04 tab, PO, l Tablet 18:45: Bedtime, # Savana nn [Zanaflex] 00 30 tab, 3 Refill(s), Pharmacy: [facility], 154.94, cm, 03/22/21 13:32:00 CDT, Height, 119.545, kg, 03/22/21 13:32:00 CDT, Weight tizanidine 2020-1 Yes 4 mg = 1 Mem oria 4 MG Oral 1-04 tab, PO, l Tablet 18:45: Bedtime, # Savana nn [Zanaflex] 00 30 tab, 3 Refill(s), Pharmacy: [facility], 154.94, cm, 03/22/21 13:32:00 CDT, Height, 119.545, kg, 03/22/21 13:32:00 CDT, Weight tizanidine 2020-05 Yes 4 mg = 1 Mem oria 4 MG Oral 1-04 tab, PO, l Tablet 18:45: Bedtime, # Savana nn [Zanaflex] 00 30 tab, 3 Refill(s), Pharmacy: [facility], 154.94, cm, 03/22/21 13:32:00 [...] Yes 0 Memoria 0-06 Refill(s) l 19:55: [place] Aspirin 2020-05 Yes 0 Memoria 0-06 Refill(s) l 19:55: [place] Aspirin 2020-05 Yes 0 Memoria 0-06 Refill(s) [...] Yes 0 Memoria 0-06 Refill(s) l 19:55: Potassium 2020-05 Yes 0 Memoria Chloride 0-06 [...] l oral tablet 19:54: Q12H, # 60 [place] 00 tab, 0 Refill(s) Potassium 2020-05 Yes [...] l oral tablet 19:54: Q12H, # 60 [place] 00 tab, 0 Refill(s) Potassium 2020-05 Yes [...] l oral tablet 19:54: Q12H, # 60 [place] 00 tab, 0 Refill(s) Potassium 2020-05 Yes [...] l oral tablet 19:54: Q12H, # 60 [place] 00 tab, 0 Refill(s) Potassium 2020-05 Yes [...] l oral tablet 19:54: Q12H, # 60 [place] 00 tab, 0 Refill(s) Potassium 2020-05 Yes [...] l oral tablet 19:54: Q12H, # 60 [place] 00 tab, 0 Refill(s) Potassium 2020-05 Yes [...] l oral tablet 19:54: Q12H, # 60 [place] 00 tab, 0 Refill(s) METFORMIN 2020-05 Yes [...] l oral tablet 19:54: Q12H, # 60 [place] 00 tab, 0 Refill(s) Potassium 2020-05 Yes [...] l oral tablet 19:54: Q12H, # 60 [place] 00 tab, 0 Refill(s) Potassium 2020-05 Yes 0 Memoria Chloride 0-06 Refill(s) l ([employer] [facility] 19:54: Ferdinand n on M20) 20 00 [...] Yes 0 Memoria Chloride 0-06 Refill(s) l ([employer] [facility] 19:54: Ferdinand n on M20) 20 00 [...] Yes 0 Memoria Chloride 0-06 Refill(s) l ([employer] [facility] 19:54: Ferdinand n on M20) 20 00 mEq oral tablet, extended release METFORMIN 2020-05 Yes METFORMIN Mem oria HYDROCHLORI 0-06 HYDROCHLOR l DE 500 MG 19:54: FABIEN 500 MG [place] TABS 00 TABS, Refill(s) 0 carvedilol 2020-05 Yes 6.25 mg = Me moria 6.25 mg 0-06 1 tab, PO, l oral tablet 19:54: Q12H, # 60 [place] 00 tab, 0 Refill(s) Potassium 2020-05 Yes [...] l oral tablet 19:54: Q12H, # 60 [place] 00 tab, 0 Refill(s) Potassium 2020-05 Yes [...] l oral tablet 19:54: Q12H, # 60 [place] 00 tab, 0 Refill(s) Potassium 2020-05 Yes [...] Yes 0 Memoria Chloride 0-06 Refill(s) l ([employer] 19:54: Ferdinand n on M20) 20 00 [...] l oral tablet 19:54: Q12H, # 60 [place] 00 tab, 0 Refill(s) Potassium 2020-05 Yes [...] Yes 0 Memoria Chloride 0-06 Refill(s) l ([employer] 19:54: Ferdinand n on M20) 20 00 mEq oral tablet, extended release METFORMIN 2020-05 Yes METFORMIN Mem oria HYDROCHLORI 0-06 HYDROCHLOR l DE 500 MG 19:54: FABIEN 500 MG [place] TABS 00 TABS, Refill(s) 0 carvedilol 2020-05 Yes 6.25 mg = Me moria 6.25 mg 0-06 1 tab, PO, l oral tablet 19:54: Q12H, # 60 [place] 00 tab, 0 Refill(s) Potassium 2020-05 Yes 0 Memoria Chloride 0-06 Refill(s) l ([employer] 19:54: Ferdinand n on M20) 20 00 [...] Yes 0 Memoria Chloride 0-06 Refill(s) l ([employer] 19:54: Ferdinand n on M20) 20 00 [...] l oral tablet 19:54: Q12H, # 60 [place] 00 tab, 0 Refill(s) GLIMEPIRIDE 2020-05 Yes [...] MG / 0-06 Refill(s) l valsartan 19:53: [place] 51 MG Oral 00 Tablet [Entresto] GLIMEPIRIDE 2020-05 Yes GLIMEPIRID Memoria 2MG TAB 0-06 E 2MG TAB, l 19:53: Refill(s) Kasi 00 0 sacubitril 2020-05 Yes 0 Memoria 49 MG / 0-06 Refill(s) l valsartan 19:53: [place] 51 MG Oral 00 Tablet [Entresto] GLIMEPIRIDE 2020-05 Yes GLIMEPIRID Memoria 2MG TAB 0-06 E 2MG TAB, l 19:53: Refill(s) Kasi 00 0 sacubitril 2020-05 Yes 0 Memoria 49 MG / 0-06 Refill(s) l valsartan 19:53: [place] 51 MG Oral 00 Tablet [Entresto] GLIMEPIRIDE 2020-05 Yes GLIMEPIRID Memoria 2MG TAB 0-06 E 2MG TAB, l 19:53: Refill(s) [place] 00 0 sacubitril 2020-05 Yes 0 Memoria 49 MG / 0-06 Refill(s) l valsartan 19:53: [place] 51 MG Oral 00 Tablet [Entresto] GLIMEPIRIDE 2020-05 Yes GLIMEPIRID Memoria 2MG TAB 0-06 E 2MG TAB, l 19:53: Refill(s) Kasi 00 0 sacubitril 2020-05 Yes 0 Memoria 49 MG / 0-06 Refill(s) l valsartan 19:53: [place] 51 MG Oral 00 Tablet [Entresto] GLIMEPIRIDE 2020-05 Yes GLIMEPIRID Memoria 2MG TAB 0-06 E 2MG TAB, l 19:53: Refill(s) [place] 00 0 sacubitril 2020-05 Yes 0 Memoria 49 MG / 0-06 Refill(s) l valsartan 19:53: [place] 51 MG Oral 00 Tablet [Entresto] GLIMEPIRIDE [...] 0-06 E 2MG TAB, l 19:53: Refill(s) [place] 00 0 sacubitril 2020-05 Yes 0 Memoria 49 MG / 0-06 Refill(s) l valsartan 19:53: [place] 51 MG Oral 00 Tablet [Entresto] GLIMEPIRIDE [...] MG / 0-06 Refill(s) l valsartan 19:53: [place] 51 MG Oral 00 Tablet [Entresto] GLIMEPIRIDE 2020-05 Yes GLIMEPIRID Memoria 2MG TAB 0-06 E 2MG TAB, l 19:53: Refill(s) [place] 00 0 sacubitril 2020-05 Yes 0 Memoria 49 MG / 0-06 Refill(s) l valsartan 19:53: [place] 51 MG Oral 00 Tablet [Entresto] GLIMEPIRIDE 2020-05 Yes GLIMEPIRID Memoria 2MG TAB 0-06 E 2MG TAB, l 19:53: Refill(s) [place] 00 0 sacubitril 2020-05 Yes 0 Memoria 49 MG / 0-06 Refill(s) l valsartan 19:53: [place] 51 MG Oral 00 Tablet [Entresto] GLIMEPIRIDE 2020-05 Yes GLIMEPIRID Memoria 2MG TAB 0-06 E 2MG TAB, l 19:53: Refill(s) Kasi 00 0 sacubitril 2020-05 Yes 0 Memoria 49 MG / 0-06 Refill(s) l valsartan 19:53: [place] 51 MG Oral 00 Tablet [Entresto] GLIMEPIRIDE 2020-05 Yes GLIMEPIRID Memoria 2MG TAB 0-06 E 2MG TAB, l 19:53: Refill(s) [place] 00 0 sacubitril 2020-05 Yes 0 Memoria 49 MG / 0-06 Refill(s) l valsartan 19:53: [place] 51 MG Oral 00 Tablet [Entresto] GLIMEPIRIDE 2020-05 Yes GLIMEPIRID Memoria 2MG TAB 0-06 E 2MG TAB, l 19:53: Refill(s) [place] 00 0 sacubitril 2020-05 Yes 0 Memoria 49 MG / 0-06 Refill(s) l valsartan 19:53: [place] 51 MG Oral 00 Tablet [Entresto] GLIMEPIRIDE 2020-05 Yes GLIMEPIRID Memoria 2MG TAB 0-06 E 2MG TAB, l 19:53: Refill(s) [place] 00 0 sacubitril 2020-05 Yes 0 Memoria 49 MG / 0-06 Refill(s) l valsartan 19:53: [place] 51 MG Oral 00 Tablet [Entresto] GLIMEPIRIDE 2020-05 Yes GLIMEPIRID Memoria 2MG TAB 0-06 E 2MG TAB, l 19:53: Refill(s) [place] 00 0 sacubitril 2020-05 Yes 0 Memoria 49 MG / 0-06 Refill(s) l valsartan 19:53: [place] 51 MG Oral 00 Tablet [Entresto] GLIMEPIRIDE 2020-05 Yes GLIMEPIRID Memoria 2MG TAB 0-06 E 2MG TAB, l 19:53: Refill(s) [place] 00 0 sacubitril 2020-05 Yes 0 Memoria 49 MG / 0-06 Refill(s) l valsartan 19:53: [place] 51 MG Oral 00 Tablet [Entresto] GLIMEPIRIDE 2020-05 Yes GLIMEPIRID Memoria 2MG TAB 0-06 E 2MG TAB, l 19:53: Refill(s) [place] 00 0 sacubitril 2020-05 Yes 0 Memoria 49 MG / 0-06 Refill(s) l valsartan 19:53: [place] 51 MG Oral 00 Tablet [Entresto] GLIMEPIRIDE 2020-05 Yes GLIMEPIRID Memoria 2MG TAB 0-06 E 2MG TAB, l 19:53: Refill(s) [place] 00 0 sacubitril 2020-05 Yes 0 Memoria 49 MG / 0-06 Refill(s) l valsartan 19:53: [place] 51 MG Oral 00 Tablet [Entresto] GLIMEPIRIDE 2020-05 Yes GLIMEPIRID Memoria 2MG TAB 0-06 E 2MG TAB, l 19:53: Refill(s) [place] 00 0 sacubitril 2020-05 Yes 0 Memoria 49 MG / 0-06 Refill(s) l valsartan 19:53: [place] 51 MG Oral 00 Tablet [Entresto] GLIMEPIRIDE 2020-05 Yes GLIMEPIRID Memoria 2MG TAB 0-06 E 2MG TAB, l 19:53: Refill(s) [place] 00 0 GLIMEPIRIDE 2020-05 Yes GLIMEPIRID Memoria 2MG TAB 0-06 E 2MG TAB, l 19:53: Refill(s) [place] 0 sacubitril 2020-05 Yes 0 Memoria 49 MG / 0-06 Refill(s) l valsartan 19:53: [place] 51 MG Oral 00 Tablet [Entresto] sacubitril 2020-05 Yes 0 Memoria 49 MG / 0-06 Refill(s) l valsartan 19:53: [place] 51 MG Oral 00 Tablet [Entresto] GLIMEPIRIDE 2020-05 Yes GLIMEPIRID Memoria 2MG TAB 0-06 E 2MG TAB, l 19:53: Refill(s) [place] 00 0 sacubitril 2020-05 Yes 0 Memoria 49 MG / 0-06 Refill(s) l valsartan 19:53: [place] 51 MG Oral 00 Tablet [Entresto] GLIMEPIRIDE 2020-05 Yes GLIMEPIRID Memoria 2MG TAB 0-06 E 2MG TAB, l 19:53: Refill(s) [place]asi 00 0 sacubitril 2020-05 Yes 0 Memoria 49 MG / 0-06 Refill(s) l valsartan 19:53: [place] 51 MG Oral 00 Tablet [Entresto] Furosemide 2020-05 Yes 40 mg = 1 Me moria 40 MG Oral 0-06 tab, PO, l Tablet 19:52: Daily, # [place] 00 30 tab, 0 Refill(s) Furosemide 2020-05 Yes 40 mg = 1 Me moria 40 MG Oral 0-06 tab, PO, l Tablet 19:52: Daily, # [place] 00 30 tab, 0 Refill(s) Furosemide 2020-05 [...] tab, PO, l Tablet 19:52: Daily, # [place] 00 30 tab, 0 Refill(s) Furosemide 2020-05 Yes 40 mg = 1 Me moria 40 MG Oral 0-06 tab, PO, l Tablet 19:52: Daily, # [place] 00 30 tab, 0 Refill(s) Furosemide 2020-05 Yes 40 mg = 1 Me moria 40 MG Oral 0-06 tab, PO, l Tablet 19:52: Daily, # Kasi 00 30 tab, 0 Refill(s) Furosemide 2020-05 Yes 40 mg = 1 Me moria 40 MG Oral 0-06 tab, PO, l Tablet 19:52: Daily, # [place] 00 30 tab, 0 Refill(s) Furosemide 2020-05 Yes 40 mg = 1 Me moria 40 MG Oral 0-06 tab, PO, l Tablet 19:52: Daily, # [place] 00 30 tab, 0 Refill(s) Furosemide 2020-05 Yes 40 mg = 1 Me moria 40 MG Oral 0-06 tab, PO, l Tablet 19:52: Daily, # [place]asi 00 30 tab, 0 Refill(s) Furosemide 2020-05 Yes 40 mg = 1 Me moria 40 MG Oral 0-06 tab, PO, l Tablet 19:52: Daily, # [place] 00 30 tab, 0 Refill(s) Furosemide 2020-05 Yes 40 mg = 1 Me moria 40 MG Oral 0-06 tab, PO, l Tablet 19:52: Daily, # [place] 00 30 tab, 0 Refill(s) Furosemide 2020-05 Yes 40 mg = 1 Me moria 40 MG Oral 0-06 tab, PO, l Tablet 19:52: Daily, # Kasi 00 30 tab, 0 Refill(s) Furosemide 2020-05 Yes 40 mg = 1 Me moria 40 MG Oral 0-06 tab, PO, l Tablet 19:52: Daily, # [place] 00 30 tab, 0 Refill(s) Furosemide 2020-05 Yes 40 mg = 1 Me moria 40 MG Oral 0-06 tab, PO, l Tablet 19:52: Daily, # [place] 00 30 tab, 0 Refill(s) Furosemide 2020-05 Yes 40 mg = 1 Me moria 40 MG Oral 0-06 tab, PO, l Tablet 19:52: Daily, # [place] 00 30 tab, 0 Refill(s) Furosemide 2020-05 Yes 40 mg = 1 Me moria 40 MG Oral 0-06 tab, PO, l Tablet 19:52: Daily, # [place] 00 30 tab, 0 Refill(s) Furosemide 2020-05 [...] tab, PO, l Tablet 19:52: Daily, # [place] 00 30 tab, 0 Refill(s) Furosemide 2020-05 Yes 40 mg = 1 Me moria 40 MG Oral 0-06 tab, PO, l Tablet 19:52: Daily, # [place] 00 30 tab, 0 Refill(s) Furosemide 2020-05 Yes 40 mg = 1 Me moria 40 MG Oral 0-06 tab, PO, l Tablet 19:52: Daily, # [place] 00 30 tab, 0 Refill(s) Furosemide 2020-05 Yes 40 mg = 1 Me moria 40 MG Oral 0-06 tab, PO, l Tablet 19:52: Daily, # [place] 00 30 tab, 0 Refill(s) Furosemide 2020-05 Yes 40 mg = 1 Me moria 40 MG Oral 0-06 tab, PO, l Tablet 19:52: Daily, # [place] 00 30 tab, 0 Refill(s) Furosemide 2020-05 Yes 40 mg = 1 Me moria 40 MG Oral 0-06 tab, PO, l Tablet 19:52: Daily, # [place] 00 30 tab, 0 Refill(s) Furosemide 2020-05 [...] lancets St formulary [facility]) [place] Blood Blood 2018-05 Yes Kilo as Common [...] No Lancets - 2-03 00:00: 00 albuterol 2016- Yes 2.5mg Inhale 3 Uni vers 2.5 mg /3 3-22 mL every 4 ity of mL (0.083 00:00: (four) [place] %) 00 hours. May Medical nebulizer also Branch solution nebulize one extra every 6 hours. albuterol 0 Yes 2.5mg Inhale 3 Uni vers 2.5 [...] every 4 ity of mL (0.083 00:00: ([facility] [place] %) 00 hours. May Medical nebulizer also Branch solution nebulize one extra every 6 hours. albuterol 2017-0 Yes 2.5mg Inhale 3 Uni vers 2.5 mg /3 3-22 mL every 4 ity of mL (0.083 00:00: ([facility]) [place] %) 00 hours. May Medical nebulizer also Branch solution nebulize one extra every 6 hours. albuterol 2017-0 Yes 2.5mg Inhale 3 Uni vers 2.5 mg /3 3-22 mL every 4 ity of mL (0.083 00:00: ([facility]) [place] %) 00 hours. May Medical nebulizer also Branch solution nebulize one extra every 6 hours. albuterol 2017-0 Yes 2.5mg Inhale 3 Uni vers 2.5 mg /3 3-22 mL every 4 ity of mL (0.083 00:00: ([facility]) [place] %) 00 hours. May Medical nebulizer also Branch solution nebulize one extra every 6 hours. albuterol 2017-0 Yes 2.5mg Inhale 3 Uni vers 2.5 mg /3 3-22 mL every 4 ity of mL (0.083 00:00: ([facility]) [place] %) 00 hours. May Medical nebulizer also Branch solution nebulize one extra every 6 hours. albuterol 2017-0 Yes 2.5mg Inhale 3 Uni vers 2.5 mg /3 3-22 mL every 4 ity of mL (0.083 00:00: ([facility]) [place] %) 00 hours. May Medical nebulizer also Branch solution nebulize one extra every 6 hours. albuterol 2017-0 Yes 2.5mg Inhale 3 Uni vers 2.5 mg /3 3-22 mL every 4 ity of mL (0.083 00:00: ([facility] [place] %) 00 hours. May Medical nebulizer [...] every 4 ity of mL (0.083 00:00: ([facility] [place] %) 00 hours. May Medical nebulizer [...] every 4 ity of mL (0.083 00:00: ([facility] [place] %) 00 hours. May Medical nebulizer also Branch solution nebulize one extra every 6 hours. albuterol 2017-0 Yes 2.5mg Inhale 3 Uni vers 2.5 mg /3 3-22 mL every 4 ity of mL (0.083 00:00: ([facility] [place] %) 00 hours. May Medical nebulizer also Branch solution nebulize one extra every 6 hours. albuterol 2017-0 Yes 2.5mg Inhale 3 Uni vers 2.5 mg /3 3-22 mL every 4 ity of mL (0.083 00:00: ([facility] [place] %) 00 hours. May Medical nebulizer also Branch solution nebulize one extra every 6 hours. albuterol 2017-0 Yes 2.5mg Inhale 3 Uni vers 2.5 mg /3 3-22 mL every 4 ity of mL (0.083 00:00: ([facility] [place] %) 00 hours. May Medical nebulizer [...] every 4 ity of mL (0.083 00:00: ([facility] [place] %) 00 hours. May Medical nebulizer [...] Glimepiride Yes Kilo 1 tablet Common [facility] Noel Noel Yes Kilo 1 tablet Common Aspirin EC Aspirin EC [facility] Low Dose Low Dose [facility] Lisinopril Lisinopril Yes Kilo 1 tablet Common [facility] Furosemide Furosemide Yes Kilo 1 tablet Common [facility] in am [facility] Coreg Coreg Yes Kilo 1 tablet Common [facility] Metformin Metformin Yes Kilo 1 tablet Common HCl HCl Hernandez with meals [facility] Entresto Entresto Yes Kilo 1 tablet C ommon 49/51mg 49/51mg [facility] metFORMIN metFORMIN No metFORMIN HCl 500 [...] MEQ 10 MEQ t} 10 10 MEQ Amiodarone Amiodarone No 1{table QD Amiodarone HCl 200 MG HCl 200 MG t} HCl 200 MG Meclizine Meclizine No 1{table TID Meclizine [...] 10 MG 10 MG t} 10 MG Jardiance Jardiance No 1{table QD Jardiance 10 MG 10 MG t} 10 MG traMADol traMADol No traMADol HCl 50 MG HCl 50 MG HCl 50 MG Potassium Potassium No Potassium Chloride Chloride Chloride Arleen ER 20 Arleen ER 20 Arleen ER 20 MEQ MEQ MEQ Mounjaro 5 Mounjaro 5 No Mounjaro 5 MG/0.5ML MG/0.5ML MG/0.5ML Potassium Potassium No Potassium Chloride Chloride Chloride Arleen ER 20 Arleen ER 20 Arleen ER 20 MEQ MEQ MEQ Eliquis 5 Eliquis 5 No 1{table BID Eliquis 5 MG MG t} MG Noel Noel No 1{table QD Noel Aspirin EC Aspirin EC t} Aspirin EC Low Dose 81 Low Dose 81 Low Dose MG MG 81 MG Glimepiride Glimepiride No Glimepirid 2 MG 2 MG e 2 MG Bumetanide Bumetanide No 1{table BID Bumetanide 1 MG 1 MG t} 1 MG Meclizine Meclizine No 1{table TID Meclizine HCl 25 MG HCl 25 MG t_as_ne HCl 25 MG eded} Jardiance Jardiance No 1{table QD Jardiance 10 MG 10 MG t} 10 MG Meclizine Meclizine No 1{table TID Meclizine HCl 12.5 MG HCl 12.5 MG t_as_ne HCl 12.5 eded} MG Klor-Con Klor-Con No 2{table QD Klor-Con M20 20 MEQ M20 20 MEQ t_with_ M20 20 MEQ food} Amiodarone Amiodarone No 1{table QD Amiodarone HCl 200 MG HCl 200 MG t} HCl 200 MG metFORMIN metFORMIN No metFORMIN HCl 500 MG HCl 500 MG HCl 500 MG Carvedilol Carvedilol No Carvedilol 3.125 MG 3.125 MG 3.125 MG Furosemide Furosemide No QD Furosemide 40 MG 40 MG 40 MG Mavyret Mavyret No 3{table QD Mavyret 100-40 MG 100-40 MG ts} 100-40 MG Entresto Entresto No 1{table BID Entresto 24-26 MG 24-26 MG t} 24-26 MG Spironolact Spironolact No 1{table Spironolac one 25 MG one 25 MG t} tone 25 MG traMADol traMADol No traMADol HCl 50 MG HCl 50 MG HCl 50 MG Aptiom 200 Aptiom 200 No QD Aptiom 200 MG MG MG Cephalexin Cephalexin No 1{capsu QID Cephalexin 500 MG 500 MG le} 500 MG Klor-Con 10 Klor-Con 10 No 1{table QD Klor-Con 10 MEQ 10 MEQ t} 10 10 MEQ Spironolact Spironolact No 1{table Spironolac one 25 MG one 25 MG t} tone 25 MG Mounjaro 5 Mounjaro 5 No Mounjaro 5 MG/0.5ML MG/0.5ML MG/0.5ML Potassium Potassium No Potassium Chloride Chloride Chloride Arleen ER 20 Arleen ER 20 Arleen ER 20 MEQ MEQ MEQ Eliquis 5 Eliquis 5 No 1{table BID Eliquis 5 MG MG t} MG Glimepiride Glimepiride No Glimepirid 2 MG 2 MG e 2 MG Noel Noel No 1{table QD Onel Aspirin EC Aspirin EC t} Aspirin EC Low Dose 81 Low Dose 81 Low Dose MG MG 81 MG Glimepiride Glimepiride No Glimepirid 2 MG 2 MG e 2 MG Bumetanide Bumetanide No 1{table BID Bumetanide 1 MG 1 MG t} 1 MG Meclizine Meclizine No 1{table TID Meclizine HCl 25 MG HCl 25 MG t_as_ne HCl 25 MG eded} Jardiance Jardiance No 1{table QD Jardiance 10 MG 10 MG t} 10 MG Klor-Con Klor-Con No 2{table QD Klor-Con M20 20 MEQ M20 20 MEQ t_with_ M20 20 MEQ food} Amiodarone Amiodarone No 1{table QD Amiodarone HCl 200 MG HCl 200 MG t} HCl 200 MG metFORMIN metFORMIN No metFORMIN HCl 500 MG HCl 500 MG HCl 500 MG Carvedilol Carvedilol No Carvedilol 3.125 MG 3.125 MG 3.125 MG Noel Noel No 1{table QD Noel Aspirin EC Aspirin EC t} Aspirin EC Low Dose 81 Low Dose 81 Low Dose MG MG 81 MG Furosemide Furosemide No QD Furosemide 40 MG 40 MG 40 MG Mavyret Mavyret No 3{table QD Mavyret 100-40 MG 100-40 MG ts} 100-40 MG Entresto Entresto No 1{table BID Entresto 24-26 MG 24-26 MG t} 24-26 MG Spironolact Spironolact No 1{table Spironolac one 25 MG one 25 MG t} tone 25 MG traMADol traMADol No traMADol HCl 50 MG HCl 50 MG HCl 50 MG Aptiom 200 Aptiom 200 No QD Aptiom 200 MG MG MG Cephalexin Cephalexin No 1{capsu QID Cephalexin 500 MG 500 MG le} 500 MG Bumetanide Bumetanide No 1{table QD Bumetanide 1 MG 1 MG t} 1 MG Carvedilol Carvedilol No Carvedilol 6.25 MG 6.25 MG 6.25 MG Furosemide Furosemide No QD Furosemide 40 MG 40 MG 40 MG Mounjaro 5 Mounjaro 5 No Mounjaro 5 MG/0.5ML MG/0.5ML MG/0.5ML Potassium Potassium No Potassium Chloride Chloride Chloride Arleen ER 20 Arleen ER 20 Arleen ER 20 MEQ MEQ MEQ Eliquis 5 Eliquis 5 No 1{table BID Eliquis 5 MG MG t} MG Noel Noel No 1{table QD Noel Aspirin EC Aspirin EC t} Aspirin EC Low Dose 81 Low Dose 81 Low Dose MG MG 81 MG Glimepiride Glimepiride No Glimepirid 2 MG 2 MG e 2 MG Bumetanide Bumetanide No 1{table BID Bumetanide 1 MG 1 MG t} 1 MG Meclizine Meclizine No 1{table TID Meclizine HCl 25 MG HCl 25 MG t_as_ne HCl 25 MG eded} Jardiance Jardiance No 1{table QD Jardiance 10 MG 10 MG t} 10 MG Klor-Con Klor-Con No 2{table QD Klor-Con M20 20 MEQ M20 20 MEQ t_with_ M20 20 MEQ food} Amiodarone Amiodarone No 1{table QD Amiodarone HCl 200 MG HCl 200 MG t} HCl 200 MG metFORMIN metFORMIN No metFORMIN HCl 500 MG HCl 500 MG HCl 500 MG Carvedilol Carvedilol No Carvedilol 3.125 MG 3.125 MG 3.125 MG Furosemide Furosemide No QD Furosemide 40 MG 40 MG 40 MG Mavyret Mavyret No 3{table QD Mavyret 100-40 MG 100-40 MG ts} 100-40 MG Entresto Entresto No 1{table BID Entresto 24-26 MG 24-26 MG t} 24-26 MG Spironolact Spironolact No 1{table Spironolac one 25 MG one 25 MG t} tone 25 MG traMADol traMADol No traMADol HCl 50 MG HCl 50 MG HCl 50 MG Aptiom 200 Aptiom 200 No QD Aptiom 200 MG MG MG Cephalexin Cephalexin No 1{capsu QID Cephalexin 500 MG 500 MG le} 500 MG Entresto Entresto No 1{table BID [...] 40 MG 40 MG 40 MG Noel LookAcross No 1{table QD Noel Aspirin EC Aspirin [...] 12.5 MG t_as_ne HCl 12.5 eded} MG Carvedilol Carvedilol No Carvedilol 6.25 MG [...] inhalation inhalation inhalation Klor-Con 10 Klor-Con 10 2019- No [facility] 1 tablet Common 05-23 [facility] 00:00 - [facility] :00 [facility] Immunizations Ordered Filled Date Status Comments Source [...] [facility], Preserv and ABX Branc h Free 18-64 YRS Influenza Virus 2022-04-24 Completed [facility], Preserv and ABX Branc h [...] 00:00:00 [place] [facility] (Prevnar 20) [facility] Moderna COVID-19 Moderna COVID-19 2021-06-02 Completed [facility] - Vaccine (Low Dose Vaccine (Low Dose 08:18:[address] [facility] Booster) Booster) [facility] Moderna COVID-19 Moderna COVID-19 2021-06-02 Completed [facility] (Low Dose Vaccine (Low Dose 08:18:[address] [facility]oster[facility] 2021-[facility]-02 Completed Co [facility] - [facility]ine (Low Dose Vaccine (Low Dose 08:18:[address] [facility] Booster) Booster) [facility] [address] [facility] 2021-06-02 Completed [facility] (Low Dose Vaccine (Low Dose 08:18:[address] [facility] Booster) Booster) [facility] [address] [facility] 2021-06-02 Completed [facility] (Low Dose Vaccine (Low Dose 08:18:[address] [facility] [address] [facility] 2021-06-02 Completed [facility] Vaccine (Low Dose Vaccine (Low Dose 08:18:[address] [facility] Booster) Booster) [facility] [address] [facility] 2021-06-02 Completed [facility] (Low Dose Vaccine (Low Dose 08:18:[address] [facility] Booster) Booster) [facility] [address] [facility] 2021-06-02 Completed [facility] (Low Dose Vaccine (Low Dose 08:18:[address] [facility] Booster) Booster) [facility] [address] [facility] 2021-06-02 Completed [facility] (Low Dose Vaccine (Low Dose 08:18:[address] [facility] Booster) Booster) [facility] [address] [facility] 2021-06-02 Completed [facility] (Low Dose Vaccine (Low Dose 08:18:[address] [facility] Booster) Booster) [facility] [address] [facility] 2021-06-02 Completed [facility] (Low Dose Vaccine (Low Dose 08:18:[address] [facility] Booster) Booster) [facility] [address] [facility] 2021-06-02 Completed [facility] (Low Dose Vaccine (Low Dose 08:18:[address] [facility] Booster) Booster) [facility] [address] [facility] 2021-06-02 Completed [facility] (Low Dose Vaccine (Low Dose 08:18:[address] [facility] Booster) Booster) [facility] COVID19 [facility] COVID19 2021-06-02 Completed [facility] (Low Dose Vaccine (Low Dose 08:18:[address] [facility] Booster) Booster) [facility] COVID19 [facility] COVID19 2021-06-02 Completed [facility] (Low Dose Vaccine (Low Dose 08:18:[address] [facility] Booster) Booster) [facility] COVID19 [facility] COVID19 2021-06-02 Completed [facility] (Low Dose Vaccine (Low Dose 08:18:[address] [facility] Booster) Booster) [facility] COVID19 [facility] COVID19 2021-06-02 Completed [facility] (Low Dose Vaccine (Low Dose 08:18:[address] [facility] Booster) Booster) [facility] COVID19 [facility] COVID19 2021-06-02 Completed [facility] (Low Dose Vaccine (Low Dose 08:18:[address] [facility] Booster) Booster) [facility] COVID19 [facility] COVID19 2021-06-02 Completed [facility] (Low Dose Vaccine (Low Dose 08:18:[address] [facility] Booster) Booster) [facility] SARS-COV-2 COVID19 2021-06-02 Completed [facility] VACCINE - (MODERNA) 00:00:00 [facility] SARS-COV-2 COVID-19 2021-06-02 Completed [facility] of VACCINE - (MODERNA) 00:00:00 [facility] SARS-COV-2 COVID-19 2021-06-02 Completed [facility] VACCINE - (MODERNA) 00:00:00 [facility] SARS-COV-2 COVID-19 2021-06-02 Completed [facility] VACCINE - (MODERNA) 00:00:00 [facility] SARS-COV-2 COVID-19 2021-06-02 Completed [facility] VACCINE - (MODERNA) 00:00:00 [facility] SARS-COV-2 COVID-19 2021-06-02 Completed [facility] VACCINE - (MODERNA) 00:00:00 [facility] SARS-COV-2 COVID-19 2021-06-02 Completed [facility] VACCINE - (MODERNA) 00:00:00 [facility] SARS-COV-2 COVID-19 2021-06-02 Completed [facility] of VACCINE - (MODERNA) 00:00:00 [facility] SARS-COV-2 COVID-19 2021-06-02 Completed [facility] VACCINE - (MODERNA) 00:00:00 [facility] SARS-COV-2 COVID-19 2021-06-02 Completed [facility] VACCINE - (MODERNA) 00:00:00 [facility] SARS-COV-2 COVID-19 2021-06-02 Completed [facility] of VACCINE - (MODERNA) 00:00:00 [facility] SARS-COV-2 COVID-19 2021-06-02 Completed [facility] VACCINE - (MODERNA) 00:00:00 [facility] SARS-COV-2 COVID-19 2021-06-02 Completed [facility] VACCINE - (MODERNA) 00:00:00 [facility] SARS-COV-2 COVID-19 2021-06-02 Completed [facility] of VACCINE - (MODERNA) 00:00:00 [facility] SARS-COV-2 COVID-19 2021-06-02 Completed [facility] of VACCINE - (MODERNA) 00:00:00 [facility] SARS-COV-2 COVID-19 2021-06-02 Completed [facility] VACCINE - (MODERNA) 00:00:00 [facility] SARS-COV-2 COVID-19 2021-06-02 Completed [facility] VACCINE - (MODERNA) 00:00:00 [facility] SARS-COV-2 COVID-19 2021-06-02 Completed [facility] VACCINE - (MODERNA) 00:00:00 [facility] SARS-COV-2 COVID-19 2021-06-02 Completed [facility] VACCINE - (MODERNA) 00:00:00 [facility] SARS-COV-2 COVID-19 2021-06-02 Completed [facility] VACCINE - (MODERNA) 00:00:00 [facility] SARS-COV-2 COVID-19 2021-06-02 Completed [facility] VACCINE - (MODERNA) 00:00:00 [facility] SARS-COV-2 COVID-19 2021-06-02 Completed [facility] VACCINE - (MODERNA) 00:00:00 [facility] SARS-COV-2 COVID-19 2021-06-02 Completed [facility] VACCINE - (MODERNA) 00:00:00 [facility] SARS-COV-2 COVID-19 2021-06-02 Completed [facility] VACCINE - (MODERNA) 00:00:00 [facility] SARS-COV-2 COVID-19 2021-06-02 Completed [facility] VACCINE - (MODERNA) 00:00:00 [facility] SARS-COV-2 COVID-19 2021-06-02 Completed [facility] VACCINE - (MODERNA) 00:00:00 [facility] Fl[employer] Fluzone 2021-02-21 Completed [facility] - 14:39:00 [facility] Fl[facility] Fluzone 2021-02-21 Completed [facility] 14:39:00 [facility] Fl[facility] Fluzone 2021-02-21 Completed [facility] 14:39:00 [facility] Fluzone Fluzone 2021-02-21 Completed [facility] - 14:39:00 [facility] Fluzone Fluzone 2021-02-21 Completed [facility] - 14:39:00 [facility] Fluzone Fluzone 2021-02-21 Completed [facility] - 14:39:00 [facility] Fluzone Fluzone 2021-02-21 Completed [facility] - 14:39:00 [facility] Fluzone Fluzone 2021-02-21 Completed [facility] - 14:39:00 [facility] Fluzone Fluzone 2021-02-21 Completed [facility] - 14:39:00 [facility] Fluzone Fluzone 2021-02-21 Completed [facility] - 14:39:00 [facility] Fluzone Fluzone 2021-02-21 Completed [facility] - 14:39:00 [facility] Fluzone Fluzone 2021-02-21 Completed [facility] - 14:39:00 [facility] Fluzone Fluzone 2021-02-21 Completed [facility] - 14:39:00 [facility] Fluzone Fluzone 2021-02-21 Completed [facility] - 14:39:00 [facility] Fluzone Fluzone 2021-02-21 Completed [facility] - 14:39:00 [facility] Fluzone Fluzone 2021-02-21 Completed [facility] - 14:39:00 [facility] Fluzone Fluzone 2021-02-21 Completed [facility] - 14:39:00 [facility] Fluzone Fluzone 2021-02-21 Completed [facility] - 14:39:00 [facility] Fluzone Fluzone 2021-02-21 Completed [facility] - 14:39:00 [facility] Fluzone Fluzone 2021-02-21 Completed [facility] - 14:39:00 [facility] Fluzone Fluzone 2021-02-21 Completed [facility] 14:39:00 [facility] Fluzone Fluzone 2021-02-21 Completed [facility] - 14:39:00 [facility] Fluzone Fluzone 2021-02-21 Completed [facility] - 14:39:00 [facility] Fluzone Fluzone 2021-02-21 Completed [facility] - 14:39:00 [facility] Fluzone Fluzone 2021-02-21 Completed [facility] - 14:39:00 [facility] Fluzone Fluzone 2021-02-21 Completed [facility] - 14:39:00 [facility] Fluzone Fluzone 2021-02-21 Completed [facility] - 14:39:00 [facility] Influenza Virus 2021-02-21 Completed [facility] Vaccine Quad .5 mL 00:00:00 [facility] 6+ MO [facility] Influenza Virus 2021-02-21 Completed [facility] Vaccine (3+ yrs) 00:00:00 [facility] dical [facility] Influenza Virus 2021-02-21 Completed [facility] Vaccine Quad .5 mL 00:00:00 [facility] 6+ MO [facility] Influenza Virus 2021-02-21 Completed [facility] Vaccine (3+ yrs) 00:00:00 [facility] dical [facility] Influenza Virus 2021-02-21 Completed [facility] Vaccine Quad .5 mL 00:00:00 [facility] IM 6+ MO [facility] Influenza Virus 2021-02-21 Completed [facility] Vaccine (3+ yrs) 00:00:00 [facility] dical [facility] Influenza Virus 2021-02-21 Completed [facility] Vaccine Quad .5 mL 00:00:00 [facility] IM 6+ MO Branch Influenza Virus 2021-02-21 Completed [facility] Vaccine (3+ yrs) 00:00:00 [facility] dical [facility] Influenza Virus 2021-02-21 Completed [facility] Vaccine Quad .5 mL 00:00:00 [facility] 6+ MO Branch Influenza Virus 2021-02-21 Completed [facility] Vaccine (3+ yrs) 00:00:00 [facility] dical [facility] Influenza Virus 2021-02-21 Completed [facility] Vaccine Quad .5 mL 00:00:00 [facility] 6+ MO [facility] Influenza Virus 2021-02-21 Completed [facility] Vaccine (3+ yrs) 00:00:00 [facility] dical [facility] Influenza Virus 2021-02-21 Completed [facility] Vaccine Quad .5 mL 00:00:00 [facility] 6+ MO [facility] Influenza Virus 2021-02-21 Completed [facility] Vaccine (3+ yrs) 00:00:00 [facility] Influenza Virus 2021-02-21 Completed [facility] Vaccine Quad .5 mL 00:00:00 [facility] IM 6+ MO Branch Influenza Virus 2021-02-21 Completed [facility] Vaccine (3+ yrs) 00:00:00 [facility] dical [facility] Influenza Virus 2021-02-21 Completed [facility] Vaccine Quad .5 mL 00:00:00 [facility] IM 6+ MO Branch Influenza Virus 2021-02-21 Completed [facility] Vaccine (3+ yrs) 00:00:00 [facility] dical [facility] Influenza Virus 2021-02-21 Completed [facility] Vaccine Quad .5 mL 00:00:00 [facility] IM 6+ MO Branch Influenza Virus 2021-02-21 Completed [facility] Vaccine (3+ yrs) 00:00:00 [facility] dical [facility] Influenza Virus 2021-02-21 Completed [facility] Vaccine Quad .5 mL 00:00:00 [facility] IM 6+ MO Branch Influenza Virus 2021-02-21 Completed [facility] Vaccine (3+ yrs) 00:00:00 [facility] dical [facility] Influenza Virus 2021-02-21 Completed [facility] Vaccine Quad .5 mL 00:00:00 [facility] IM 6+ MO Branch Influenza Virus 2021-02-21 Completed [facility] Vaccine (3+ yrs) 00:00:00 [facility]ical [facility] Influenza Virus 2021-02-21 Completed [facility] Vaccine Quad .5 mL 00:00:00 [facility] 6+ MO Branch Influenza Virus 2021-02-21 Completed [facility] Vaccine (3+ yrs) 00:00:00 [facility] dical [facility] Influenza Virus 2021-02-21 Completed [facility] Vaccine Quad .5 mL 00:00:00 [facility] 6+ MO Branch Influenza Virus 2021-02-21 Completed [facility] Vaccine (3+ yrs) 00:00:00 [facility]ical [facility] Influenza Virus 2021-02-21 Completed [facility] Vaccine Quad .5 mL 00:00:00 [facility] 6+ MO Branch Influenza Virus 2021-02-21 Completed [facility] Vaccine (3+ yrs) 00:00:00 [facility] dical [facility] Influenza Virus 2021-02-21 Completed [facility] Vaccine Quad .5 mL 00:00:00 [facility] IM 6+ MO Branch Influenza Virus 2021-02-21 Completed [facility] Vaccine (3+ yrs) 00:00:00 [facility] dical [facility] Influenza Virus 2021-02-21 Completed [facility] Vaccine Quad .5 mL 00:00:00 [facility] IM 6+ MO Branch Influenza Virus 2021-02-21 Completed [facility] Vaccine (3+ yrs) 00:00:00 [facility] dical [facility] Influenza Virus 2021-02-21 Completed [facility] Vaccine Quad .5 mL 00:00:00 [facility] IM 6+ MO Branch Influenza Virus 2021-02-21 Completed [facility] Vaccine (3+ yrs) 00:00:00 [facility] dical [facility] Influenza Virus 2021-02-21 Completed [facility] Vaccine Quad .5 mL 00:00:00 [facility] 6+ MO Branch Influenza Virus 2021-02-21 Completed [facility] Vaccine (3+ yrs) 00:00:00 [facility]ical [facility] Influenza Virus 2021-02-21 Completed [facility] Vaccine Quad .5 mL 00:00:00 [facility] 6+ MO Branch Influenza Virus 2021-02-21 Completed [facility] Vaccine (3+ yrs) 00:00:00 [facility] dicnd Branch Influenza Virus 2021-02-21 Completed [facility] Vaccine Quad .5 mL 00:00:00 [facility] 6+ MO Branch Influenza Virus 2021-02-21 Completed [facility] Vaccine (3+ yrs) 00:00:00 [facility] Influenza Virus 2021-02-21 Completed [facility] Vaccine Quad .5 mL 00:00:00 [facility] 6+ MO Branch Influenza Virus 2021-02-21 Completed [facility] Vaccine (3+ yrs) 00:00:00 [facility] Influenza Virus 2021-02-21 Completed [facility] Vaccine Quad .5 mL 00:00:00 [facility] 6+ MO Branch Influenza Virus 2021-02-21 Completed [facility] Vaccine (3+ yrs) 00:00:00 [facility] Influenza Virus 2021-02-21 Completed [facility] Vaccine Quad .5 mL 00:00:00 [facility] 6+ MO Branch Influenza Virus 2021-02-21 Completed [facility] Vaccine (3+ yrs) 00:00:00 [facility] Influenza Virus 2021-02-21 Completed [facility] of Vaccine Quad .5 mL 00:00:00 [facility] 6+ MO Branch Influenza Virus 2021-02-21 Completed [facility] Vaccine (3+ yrs) 00:00:00 [facility] Influenza Virus 2021-02-21 Completed [facility] Vaccine Quad .5 mL 00:00:00 [facility] 6+ MO Branch Influenza Virus 2021-02-21 Completed [facility] Vaccine (3+ yrs) 00:00:00 [facility] Moderna COVID-19 Moderna COVID-19 2020-10-03 Completed [facility] Vacc[facility] Vaccine 14:55:00 [facility] Moderna COVID-19 Moderna COVID-19 2020-10-03 Completed [facility] Vaccine Vaccine 14:55:00 [facility] Moderna COVID-19 Moderna COVID-19 2020-10-03 Completed [facility] Vaccine Vaccine 14:55:00 [facility] Moderna COVID-19 Moderna COVID-19 2020-10-03 Completed [facility] Vaccine Vaccine 14:55:00 [facility] Moderna COVID-19 Moderna COVID-19 2020-10-03 Completed [facility] Vaccine Vaccine 14:55:00 [facility] Moderna COVID-19 Moderna COVID-19 2020-10-03 Completed [facility] Vaccine Vaccine 14:55:00 [facility] Moderna COVID-19 Moderna COVID-19 2020-10-03 Completed [facility] Vaccine Vaccine 14:55:00 [facility] Moderna COVID-19 Moderna COVID-19 2020-10-03 Completed [facility] Vaccine Vaccine 14:55:00 [facility] Moderna COVID-19 Moderna COVID-19 2020-10-03 Completed [facility] Vaccine Vaccine 14:55:00 [facility] Moderna COVID-19 Moderna COVID-19 2020-10-03 Completed [facility] Vaccine Vaccine 14:55:00 [facility] Moderna COVID-19 Moderna COVID-19 2020-10-03 Completed [facility] Vaccine Vaccine 14:55:00 [facility] Moderna COVID-19 Moderna COVID-19 2020-10-03 Completed [facility] Vaccine Vaccine 14:55:00 [facility] Moderna COVID-19 Moderna COVID-19 2020-10-03 Completed [facility] Vaccine Vaccine 14:55:00 [facility] Moderna COVID-19 Moderna COVID-19 2020-10-03 Completed [facility] Vaccine Vaccine 14:55:00 [facility] Moderna COVID-19 Moderna COVID-19 2020-10-03 Completed [facility] Vaccine Vaccine 14:55:00 [facility] Moderna COVID-19 Moderna COVID-19 2020-10-03 Completed [facility] Vaccine Vaccine 14:55:00 [facility] Moderna COVID-19 Moderna COVID-19 2020-10-03 Completed [facility] Vaccine Vaccine 14:55:00 [facility] Moderna COVID-19 Moderna COVID-19 2020-10-03 Completed [facility] Vaccine Vaccine 14:55:00 [facility] Moderna COVID-19 Moderna COVID-19 2020-10-03 Completed [facility] Vaccine Vaccine 14:55:00 [facility] Moderna COVID-19 Moderna COVID-19 2020-10-03 Completed [facility] Vaccine Vaccine 14:55:00 [facility] Moderna COVID-19 Moderna COVID-19 2020-10-03 Completed [facility] Vaccine Vaccine 14:55:00 [facility] Moderna COVID-19 Moderna COVID-19 2020-10-03 Completed [facility] Vaccine Vaccine 14:55:00 [facility] Moderna COVID-19 Moderna COVID-19 2020-10-03 Completed [facility] Vaccine Vaccine 14:55:00 [facility] Moderna COVID-19 Moderna COVID-19 2020-10-03 Completed [facility] Vaccine Vaccine 14:55:00 [facility] Moderna COVID-19 Moderna COVID-19 2020-10-03 Completed [facility] Vaccine Vaccine 14:55:00 [facility] Moderna COVID-19 Moderna COVID-19 2020-10-03 Completed [facility] Vaccine Vaccine 14:55:00 [facility] Moderna COVID-19 Moderna COVID-19 2020-10-03 Completed [facility] Vaccine Vaccine 14:55:00 [facility] SARS-COV-2 COVID-19 2020-10-03 Completed [facility] of VACCINE - (MODERNA) 00:00:00 [facility] SARS-COV-2 COVID-19 2020-10-03 Completed [facility] of VACCINE - (MODERNA) 00:00:00 [facility] SARS-COV-2 COVID-19 2020-10-03 Completed [facility] VACCINE - (MODERNA) 00:00:00 [facility] SARS-COV-2 COVID-19 2020-10-03 Completed [facility] of VACCINE - (MODERNA) 00:00:00 [facility] SARS-COV-2 COVID-19 2020-10-03 Completed [facility] VACCINE - (MODERNA) 00:00:00 [facility] SARS-COV-2 COVID-19 2020-10-03 Completed [facility] VACCINE - (MODERNA) 00:00:00 [facility] SARS-COV-2 COVID-19 2020-10-03 Completed [facility] VACCINE - (MODERNA) 00:00:00 [facility] SARS-COV-2 COVID-19 2020-10-03 Completed [facility] VACCINE - (MODERNA) 00:00:00 [facility] SARS-COV-2 COVID-19 2020-10-03 Completed [facility] VACCINE - (MODERNA) 00:00:00 [facility] SARS-COV-2 COVID-19 2020-10-03 Completed [facility] VACCINE - (MODERNA) 00:00:00 [facility] SARS-COV-2 COVID-19 2020-10-03 Completed [facility] of VACCINE - (MODERNA) 00:00:00 [facility] SARS-COV-2 COVID-19 2020-10-03 Completed [facility] of VACCINE - (MODERNA) 00:00:00 [facility] SARS-COV-2 COVID-19 2020-10-03 Completed [facility] of VACCINE - (MODERNA) 00:00:00 [facility] SARS-COV-2 COVID-19 2020-10-03 Completed [facility] of VACCINE - (MODERNA) 00:00:00 [facility] SARS-COV-2 COVID-19 2020-10-03 Completed [facility] of VACCINE - (MODERNA) 00:00:00 [facility] SARS-COV-2 COVID-19 2020-10-03 Completed [facility] of VACCINE - (MODERNA) 00:00:00 [facility] SARS-COV-2 COVID-19 2020-10-03 Completed [facility] of VACCINE - (MODERNA) 00:00:00 [facility] SARS-COV-2 COVID-19 2020-10-03 Completed [facility] VACCINE - (MODERNA) 00:00:00 [facility] SARS-COV-2 COVID-19 2020-10-03 Completed [facility] VACCINE - (MODERNA) 00:00:00 [facility] SARS-COV-2 COVID-19 2020-10-03 Completed [facility] of VACCINE - (MODERNA) 00:00:00 [facility] SARS-COV-2 COVID-19 2020-10-03 Completed [facility] of VACCINE - (MODERNA) 00:00:00 [facility] SARS-COV-2 COVID-19 2020-10-03 Completed [facility] of VACCINE - (MODERNA) 00:00:00 [facility] SARS-COV-2 COVID-19 2020-10-03 Completed [facility] VACCINE - (MODERNA) 00:00:00 [facility] SARS-COV-2 COVID-19 2020-10-03 Completed [facility] of VACCINE - (MODERNA) 00:00:00 [facility] SARS-COV-2 COVID-19 2020-10-03 Completed [facility] of VACCINE - (MODERNA) 00:00:00 [facility] SARS-COV-2 COVID-19 2020-10-03 Completed [facility] of VACCINE - (MODERNA) 00:00:00 [facility] Moderna COVID-19 Moderna COVID-19 2020-09-05 Completed [facility] Vaccine 10:56:00 [facility] Moderna COVID-19 Moderna COVID-19 2020-09-05 Completed [facility] Vaccine Vaccine 10:56:00 [facility] Moderna COVID-19 Moderna COVID-19 2020-09-05 Completed [facility] Vaccine Vaccine 10:56:00 [facility] Moderna COVID-19 Moderna COVID-19 2020-09-05 Completed [facility] Vaccine Vaccine 10:56:00 [facility] Moderna COVID-19 Moderna COVID-19 2020-09-05 Completed [facility] Vaccine Vaccine 10:56:00 [facility] Moderna COVID-19 Moderna COVID-19 2020-09-05 Completed [facility] Vaccine Vaccine 10:56:00 [facility] Moderna COVID-19 Moderna COVID-19 2020-09-05 Completed [facility] Vaccine Vaccine 10:56:00 [facility] Moderna COVID-19 Moderna COVID-19 2020-09-05 Completed [facility] Vaccine Vaccine 10:56:00 [facility] Moderna COVID-19 Moderna COVID-19 2020-09-05 Completed [facility] Vaccine Vaccine 10:56:00 [facility] Moderna COVID-19 Moderna COVID-19 2020-09-05 Completed [facility] Vaccine Vaccine 10:56:00 [facility] Moderna COVID-19 Moderna COVID-19 2020-09-05 Completed [facility] Vaccine Vaccine 10:56:00 [facility] Moderna COVID-19 Moderna COVID-19 2020-09-05 Completed [facility] Vaccine Vaccine 10:56:00 [facility] Moderna COVID-19 Moderna COVID-19 2020-09-05 Completed [facility] Vaccine Vaccine 10:56:00 [facility] Moderna COVID-19 Moderna COVID-19 2020-09-05 Completed [facility] Vaccine Vaccine 10:56:00 [facility] Moderna COVID-19 Moderna COVID-19 2020-09-05 Completed [facility] Vaccine Vaccine 10:56:00 [facility] Moderna COVID-19 Moderna COVID-19 2020-09-05 Completed [facility] Vaccine Vaccine 10:56:00 [facility] Moderna COVID-19 Moderna COVID-19 2020-09-05 Completed [facility] Vaccine Vaccine 10:56:00 [facility] Moderna COVID-19 Moderna COVID-19 2020-09-05 Completed [facility] Vaccine Vaccine 10:56:00 [facility] Moderna COVID-19 Moderna COVID-19 2020-09-05 Completed [facility] Vaccine Vaccine 10:56:00 [facility] Moderna COVID-19 Moderna COVID-19 2020-09-05 Completed [facility] Vaccine Vaccine 10:56:00 [facility] Moderna COVID-19 Moderna COVID-19 2020-09-05 Completed [facility] Vaccine Vaccine 10:56:00 [facility] Moderna COVID-19 Moderna COVID-19 2020-09-05 Completed [facility] Vaccine Vaccine 10:56:00 [facility] Moderna COVID-19 Moderna COVID-19 2020-09-05 Completed [facility] - Vaccine Vaccine 10:56:00 [facility] Moderna COVID-19 Moderna COVID-19 2020-09-05 Completed [facility] - Vaccine Vaccine 10:56:00 [facility] Moderna COVID-19 Moderna COVID-19 2020-09-05 Completed [facility] - Vaccine Vaccine 10:56:00 [facility] Moderna COVID-19 Moderna COVID-19 2020-09-05 Completed [facility] - Vaccine Vaccine 10:56:00 [facility] Moderna COVID-19 Moderna COVID-19 2020-09-05 Completed [facility] Vaccine Vaccine 10:56:00 [facility] SARS-COV-2 COVID-19 2020-09-05 Completed [facility] VACCINE - (MODERNA) 00:00:00 [facility] SARS-COV-2 COVID-19 2020-09-05 Completed [facility] VACCINE - (MODERNA) 00:00:00 [facility] SARS-COV-2 COVID-19 2020-09-05 Completed [facility] VACCINE - (MODERNA) 00:00:00 [facility] SARS-COV-2 COVID-19 2020-09-05 Completed [facility] VACCINE - (MODERNA) 00:00:00 [facility] SARS-COV-2 COVID-19 2020-09-05 Completed [facility] VACCINE - (MODERNA) 00:00:00 [facility] SARS-COV-2 COVID-19 2020-09-05 Completed [facility] VACCINE - (MODERNA) 00:00:00 [facility] SARS-COV-2 COVID-19 2020-09-05 Completed [facility] VACCINE - (MODERNA) 00:00:00 [facility] SARS-COV-2 COVID-19 2020-09-05 Completed [facility] VACCINE - (MODERNA) 00:00:00 [facility] SARS-COV-2 COVID-19 2020-09-05 Completed [facility] VACCINE - (MODERNA) 00:00:00 [facility] SARS-COV-2 COVID-19 2020-09-05 Completed [facility] VACCINE - (MODERNA) 00:00:00 [facility] SARS-COV-2 COVID-19 2020-09-05 Completed [facility] VACCINE - (MODERNA) 00:00:00 [facility] SARS-COV-2 COVID-19 2020-09-05 Completed [facility] VACCINE - (MODERNA) 00:00:00 [facility] SARS-COV-2 COVID-19 2020-09-05 Completed [facility] VACCINE - (MODERNA) 00:00:00 [facility] SARS-COV-2 COVID-19 2020-09-05 Completed [facility] VACCINE - (MODERNA) 00:00:00 [facility] SARS-COV-2 COVID-19 2020-09-05 Completed [facility] VACCINE - (MODERNA) 00:00:00 [facility] SARS-COV-2 COVID-19 2020-09-05 Completed [facility] VACCINE - (MODERNA) 00:00:00 [facility] SARS-COV-2 COVID-19 2020-09-05 Completed [facility] VACCINE - (MODERNA) 00:00:00 [facility] SARS-COV-2 COVID-19 2020-09-05 Completed [facility] VACCINE - (MODERNA) 00:00:00 [facility] SARS-COV-2 COVID-19 2020-09-05 Completed [facility] VACCINE - (MODERNA) 00:00:00 [facility] SARS-COV-2 COVID-19 2020-09-05 Completed [facility] VACCINE - (MODERNA) 00:00:00 [facility] SARS-COV-2 COVID-19 2020-09-05 Completed [facility] VACCINE - (MODERNA) 00:00:00 [facility] SARS-COV-2 COVID-19 2020-09-05 Completed [facility] VACCINE - (MODERNA) 00:00:00 [facility] SARS-COV-2 COVID-19 2020-09-05 Completed [facility] VACCINE - (MODERNA) 00:00:00 [facility] SARS-COV-2 COVID-19 2020-09-05 Completed [facility] VACCINE - (MODERNA) 00:00:00 [facility] SARS-COV-2 COVID-19 2020-09-05 Completed [facility] VACCINE - (MODERNA) 00:00:00 [facility] SARS-COV-2 COVID-19 2020-09-05 Completed [facility] VACCINE - (MODERNA) 00:00:00 [facility] Moderna COVID-19 Moderna COVID-19 Unknown Completed [facility] Vaccine [facility] Moderna COVID-19 Moderna COVID-19 Unknown Completed [facility] Vaccine (Low Dose Vaccine (Low Dose [facility] Booster) Booster) [facility] Moderna COVID-19 Moderna COVID-19 Unknown Completed [facility] Vaccine [facility] Fluzone Fluzone Unknown Completed [facility] Moderna COVID-19 Moderna COVID-19 Unknown Completed [facility]ine (Low Dose Vaccine (Low Dose [facility] Booster) Booster) [facility] Moderna COVID-19 Moderna COVID-19 Unknown Completed [facility] Vaccine [facility] Moderna COVID-19 Moderna COVID-19 Unknown Completed [facility] Vaccine [facility] Fluzone Fluzone Unknown Completed [facility] Moderna COVID-19 Moderna COVID-19 Unknown Completed [facility] Vaccine (Low Dose Vaccine (Low Dose [facility] Booster) Booster) [facility] [place] Moderna COVID-19 Moderna COVID-19 Unknown Completed [facility] Vaccine [facility] Moderna COVID-19 Moderna COVID-19 Unknown Completed [facility] Vaccine [facility] Fluzone Fluzone Unknown Completed [facility] Moderna COVID-19 Moderna COVID-19 Unknown Completed [facility] Vaccine (Low Dose Vaccine (Low Dose [facility] Booster) Booster) [facility] Moderna COVID-19 Moderna COVID-19 Unknown Completed [facility] Vaccine [facility] Moderna COVID-19 Moderna COVID-19 Unknown Completed [facility] Vaccine [facility] Fluzone Fluzone Unknown Completed [facility] Moderna COVID-19 Moderna COVID-19 Unknown Completed [facility] Vaccine [facility] Fluzone Fluzone Unknown Completed [facility] Moderna COVID-19 Moderna COVID-19 Unknown Completed [facility] Vaccine [facility] Moderna COVID-19 Moderna COVID-19 Unknown Completed [facility] Vaccine (Low Dose Vaccine (Low Dose [facility] Booster) Booster) [facility] Moderna COVID-19 Moderna COVID-19 Unknown Completed [facility] Vaccine (Low Dose Vaccine (Low Dose [facility] Booster) Booster) [facility] Moderna COVID-19 Moderna COVID-19 Unknown Completed [facility] Vaccine [facility] Moderna COVID-19 Moderna COVID-19 Unknown Completed [facility] Vaccine [facility] Fluzone Fluzone Unknown Completed [facility] Moderna COVID-19 Unknown Completed [facility] Vaccine (Low Dose Vaccine (Low Dose [facility] Booster) Booster) [facility] Moderna COVID-19 Moderna COVID-19 Unknown Completed [facility] Vaccine [facility] Moderna COVID-19 Moderna COVID-19 Unknown Completed [facility] Vaccine [facility] Fluzone Fluzone Unknown Completed [facility] Moderna COVID-19 Moderna COVID-19 Unknown Completed [facility] Vaccine (Low Dose Vaccine (Low Dose [facility] Booster) Booster) [facility] Moderna COVID-19 Moderna COVID-19 Unknown Completed [facility] Vaccine [facility] Moderna COVID-19 Moderna COVID-19 Unknown Completed [facility] Vaccine [facility] Fluzone Fluzone Unknown Completed [facility] Moderna COVID-19 Moderna COVID-19 Unknown Completed [facility] (Low Dose Vaccine (Low Dose [facility] Booster) Booster) [facility] COVID-[facility] Moderna COVID-19 Unknown Completed [facility] Vaccine [facility] Moderna COVID-19 Moderna COVID-19 Unknown Completed [facility] Vaccine [facility] Fluzone Fluzone Unknown Completed [facility] Moderna COVID-19 Moderna COVID-19 Unknown Completed [facility] Vaccine (Low Dose Vaccine (Low Dose [facility] Booster) Booster) [facility] COVID19 Moderna COVID-19 Unknown Completed [facility] Vaccine Vaccine [facility] Moderna COVID-19 Moderna COVID-19 Unknown Completed [facility] Vaccine Vaccine [facility] Fluzone Fluzone Unknown Completed [facility] SARS-COV-2 COVID-19 Unknown Completed [facility] VACCINE - (MODERNA) [facility] SARS-COV-2 COVID-19 Unknown Completed [facility] VACCINE - (MODERNA) [facility] SARS-COV-2 COVID-19 Unknown Completed [facility] VACCINE - (MODERNA) [facility] Influenza Virus Unknown Completed [facility] Vaccine Quad .5 mL [facility] IM 6+ MO Branch (FLUZONE/FLULAVAL/F LUARIX) Influenza Virus Unknown Completed [facility] Vaccine Recomb Quad [facility] IM, Preserv and ABX Branc h Free 18-64 YRS Pneumococcal 20 Unknown Completed [facility] Conjugate, PCV20 [facility] dical (Prevnar 20) Branch Influenza Virus Unknown Completed [facility] Vaccine (3+ yrs) [facility] dical Branch SARS-COV-2 COVID-19 Unknown Completed [facility] VACCINE - (MODERNA) [facility] SARS-COV-2 COVID-19 Unknown Completed [facility] VACCINE - (MODERNA) [facility] SARS-COV-2 COVID-19 Unknown Completed [facility] VACCINE - (MODERNA) [facility] Influenza Virus Unknown Completed [facility] Vaccine Quad .5 mL [facility] IM 6+ MO Branch (FLUZONE/FLULAVAL/F LUARIX) Influenza Virus Unknown Completed [facility] Vaccine Recomb Quad [facility] IM, Preserv and ABX Branc h Free 18-64 YRS Pneumococcal 20 Unknown Completed [facility] Conjugate, PCV20 [facility] dical (Prevnar 20) Branch Influenza Virus Unknown Completed [facility] Vaccine (3+ yrs) [facility] dical Branch SARS-COV-2 COVID-19 Unknown Completed [facility] VACCINE - (MODERNA) [facility] SARS-COV-2 COVID-19 Unknown Completed [facility] VACCINE - (MODERNA) [facility] SARS-COV-2 COVID-19 Unknown Completed [facility] VACCINE - (MODERNA) [facility] Influenza Virus Unknown Completed [facility] Vaccine Quad .5 mL [facility] IM 6+ MO Branch (FLUZONE/FLULAVAL/F LUARIX) Influenza Virus Unknown Completed [facility] Vaccine Recomb Quad [facility] IM, Preserv and ABX Branc h Free 18-64 YRS Pneumococcal 20 Unknown Completed [facility] Conjugate, PCV20 [facility] dical (Prevnar 20) Branch Influenza Virus Unknown Completed [facility] Vaccine (3+ yrs) [facility] dical Branch Influenza Virus Unknown Completed [facility] Vaccine Quad .5 mL [facility] IM 6+ MO Branch (FLUZONE/FLULAVAL/F LUARIX) RSV, Monoclonal Unknown Completed [facility] Antibody, [facility] (nirsevimab-alip), Branch 0.5 mL, - 12 Mo. SARS-COV-2 COVID-19 Unknown Completed [facility] VACCINE - (MODERNA) [facility] SARS-COV-2 COVID-19 Unknown Completed [facility] VACCINE - (MODERNA) [facility] SARS-COV-2 COVID-19 Unknown Completed [facility] VACCINE - (MODERNA) [facility] Influenza Virus Unknown Completed [facility] Vaccine Quad .5 mL [facility] IM 6+ MO Branch (FLUZONE/FLULAVAL/F LUARIX) Influenza Virus Unknown Completed [facility] Vaccine Recomb Quad [facility] IM, Preserv and ABX Branc h Free 18-64 YRS Pneumococcal 20 Unknown Completed [facility] Conjugate, PCV20 [facility] dical (Prevnar 20) Branch Influenza Virus Unknown Completed [facility] Vaccine (3+ yrs) [facility] dical Branch Influenza Virus Unknown Completed [facility] Vaccine Quad .5 mL [facility] IM 6+ MO Branch (FLUZONE/FLULAVAL/F LUARIX) RSV, Monoclonal Unknown Completed [facility] Antibody, [facility] (nirsevimab-alip), Branch 0.5 mL, - 12 Mo. SARS-COV-2 COVID-19 Unknown Completed [facility] VACCINE - (MODERNA) [facility] SARS-COV-2 COVID-19 Unknown Completed [facility] VACCINE - (MODERNA) [facility] SARS-COV-2 COVID-19 Unknown Completed [facility] VACCINE - (MODERNA) [facility] Influenza Virus Unknown Completed [facility] Vaccine Quad .5 mL [facility] 6+ MO Branch (FLUZONE/FLULAVAL/F LUARIX) Influenza Virus Unknown Completed [facility] Vaccine Recomb Quad [facility] IM, Preserv and ABX Branc h Free 18-64 YRS Pneumococcal 20 Unknown Completed [facility] Conjugate, PCV20 [facility] dical (Prevnar 20) Branch Influenza Virus Unknown Completed [facility] Vaccine (3+ yrs) [facility] dical Branch Influenza Virus Unknown Completed [facility] Vaccine Quad .5 mL [facility] 6+ MO Branch (FLUZONE/FLULAVAL/F LUARIX) RSV, Monoclonal Unknown Completed [facility] Antibody, [facility] (nirsevimab-alip), Branch 0.5 mL, - 12 Mo. SARS-COV-2 COVID-19 Unknown Completed [facility] VACCINE - (MODERNA) [facility] SARS-COV-2 COVID-19 Unknown Completed [facility] VACCINE - (MODERNA) [facility] SARS-COV-2 COVID-19 Unknown Completed [facility] VACCINE - (MODERNA) [facility] Influenza Virus Unknown Completed [facility] Vaccine Quad .5 mL [facility] IM 6+ MO Branch (FLUZONE/FLULAVAL/F LUARIX) Influenza Virus Unknown Completed [facility] Vaccine Recomb Quad [facility] IM, Preserv and ABX Branc h Free 18-64 YRS Pneumococcal 20 Unknown Completed [facility] Conjugate, PCV20 [facility] dical (Prevnar 20) Branch Influenza Virus Unknown Completed [facility] Vaccine (3+ yrs) [facility] dical Branch Influenza Virus Unknown Completed [facility] Vaccine Quad .5 mL [facility] IM 6+ MO Branch (FLUZONE/FLULAVAL/F LUARIX) RSV, Monoclonal Unknown Completed [facility] Antibody, [facility] (nirsevimab-alip), Branch 0.5 mL, - 12 Mo. SARS-COV-2 COVID-19 Unknown Completed [facility] VACCINE - (MODERNA) [facility] SARS-COV-2 COVID-19 Unknown Completed [facility] VACCINE - (MODERNA) [facility] SARS-COV-2 COVID-19 Unknown Completed [facility] VACCINE - (MODERNA) [facility] Influenza Virus Unknown Completed [facility] Vaccine Quad .5 mL [facility] 6+ MO Branch (FLUZONE/FLULAVAL/F LUARIX) Influenza Virus Unknown Completed [facility] Vaccine Recomb Quad [facility], Preserv and ABX Branc h Free 18-64 YRS Pneumococcal 20 Unknown Completed [facility] Conjugate, PCV20 [facility] dical (Prevnar 20) Branch Influenza Virus Unknown Completed [facility] Vaccine (3+ yrs) [facility] dical Branch Influenza Virus Unknown Completed [facility] Vaccine Quad .5 mL [facility] 6+ MO Branch (FLUZONE/FLULAVAL/F LUARIX) RSV, Monoclonal Unknown Completed [facility] Antibody, [facility] (nirsevimab-alip), Branch 0.5 mL, - 12 Mo. SARS-COV-2 COVID-19 Unknown Completed [facility] VACCINE - (MODERNA) [facility] SARS-COV-2 COVID-19 Unknown Completed [facility] VACCINE - (MODERNA) [facility] SARS-COV-2 COVID-19 Unknown Completed [facility] of VACCINE - (MODERNA) [facility] Influenza Virus Unknown Completed [facility] Vaccine Quad .5 mL [facility] IM 6+ MO Branch (FLUZONE/FLULAVAL/F LUARIX) Influenza Virus Unknown Completed [facility] Vaccine Recomb Quad [facility] IM, Preserv and ABX Branc h Free 18-64 YRS Pneumococcal 20 Unknown Completed [facility] Conjugate, PCV20 [facility] dical (Prevnar 20) Branch Influenza Virus Unknown Completed [facility] Vaccine (3+ yrs) [facility] dical Branch Influenza Virus Unknown Completed [facility] Vaccine Quad .5 mL [facility] IM 6+ MO Branch (FLUZONE/FLULAVAL/F LUARIX) RSV, Monoclonal Unknown Completed [facility] Antibody, [facility] (nirsevimab-alip), Branch 0.5 mL, - 12 Mo. SARS-COV-2 COVID-19 Unknown Completed [facility] VACCINE - (MODERNA) [facility] SARS-COV-2 COVID-19 Unknown Completed [facility] VACCINE - (MODERNA) [facility] SARS-COV-2 COVID-19 Unknown Completed [facility] VACCINE - (MODERNA) [facility] Influenza Virus Unknown Completed [facility] Vaccine Quad .5 mL [facility] 6+ MO Branch (FLUZONE/FLULAVAL/F LUARIX) Influenza Virus Unknown Completed [facility] Vaccine Recomb Quad [facility], Preserv and ABX Branc h Free 18-64 YRS Pneumococcal 20 Unknown Completed [facility] Conjugate, PCV20 [facility] dical (Prevnar 20) Branch Influenza Virus Unknown Completed [facility] Vaccine (3+ yrs) [facility] dical Branch Influenza Virus Unknown Completed [facility] Vaccine Quad .5 mL [facility] IM 6+ MO Branch (FLUZONE/FLULAVAL/F LUARIX) RSV, Monoclonal Unknown Completed [facility] Antibody, [facility] (nirsevimab-alip), Branch 0.5 mL, - 12 Mo. SARS-COV-2 COVID-19 Unknown Completed [facility] VACCINE - (MODERNA) [facility] SARS-COV-2 COVID-19 Unknown Completed [facility] VACCINE - (MODERNA) [facility] SARS-COV-2 COVID-19 Unknown Completed [facility] VACCINE - (MODERNA) [facility] Influenza Virus Unknown Completed [facility] Vaccine Quad .5 mL [facility] IM 6+ MO Branch (FLUZONE/FLULAVAL/F LUARIX) Influenza Virus Unknown Completed [facility] Vaccine Recomb Quad [facility] IM, Preserv and ABX Branc h Free 18-64 YRS Pneumococcal 20 Unknown Completed [facility] Conjugate, PCV20 [facility] dical (Prevnar 20) Branch Influenza Virus Unknown Completed [facility] Vaccine (3+ yrs) [facility] dical Branch Influenza Virus Unknown Completed [facility] Vaccine Quad .5 mL [facility] IM 6+ MO Branch (FLUZONE/FLULAVAL/F LUARIX) RSV, Monoclonal Unknown Completed [facility] Antibody, [facility] (nirsevimab-alip), Branch 0.5 mL, - 12 Mo. SARS-COV-2 COVID-19 Unknown Completed [facility] VACCINE - (MODERNA) [facility] SARS-COV-2 COVID-19 Unknown Completed [facility] VACCINE - (MODERNA) [facility] SARS-COV-2 COVID-19 Unknown Completed [facility] VACCINE - (MODERNA) [facility] Influenza Virus Unknown Completed [facility] Vaccine Quad .5 mL [facility] IM 6+ MO Branch (FLUZONE/FLULAVAL/F LUARIX) Influenza Virus Unknown Completed [facility] Vaccine Recomb Quad [facility] IM, Preserv and ABX Branc h Free 18-64 YRS Pneumococcal 20 Unknown Completed [facility] Conjugate, PCV20 [facility] dical (Prevnar 20) Branch Influenza Virus Unknown Completed [facility] Vaccine (3+ yrs) [facility] dical Branch Influenza Virus Unknown Completed [facility] Vaccine Quad .5 mL [facility] IM 6+ MO Branch (FLUZONE/FLULAVAL/F LUARIX) RSV, Monoclonal Unknown Completed [facility] Antibody, [facility] (nirsevimab-alip), Branch 0.5 mL, - 12 Mo. SARS-COV-2 COVID-19 Unknown Completed [facility] VACCINE - (MODERNA) [facility] SARS-COV-2 COVID-19 Unknown Completed [facility] VACCINE - (MODERNA) [facility] SARS-COV-2 COVID-19 Unknown Completed [facility] VACCINE - (MODERNA) [facility] Influenza Virus Unknown Completed [facility] Vaccine Quad .5 mL [facility] IM 6+ MO Branch (FLUZONE/FLULAVAL/F LUARIX) Influenza Virus Unknown Completed [facility] Vaccine Recomb Quad [facility] IM, Preserv and ABX Branc h Free 18-64 YRS Pneumococcal 20 Unknown Completed [facility] Conjugate, PCV20 [facility] dical (Prevnar 20) Branch Influenza Virus Unknown Completed [facility] Vaccine (3+ yrs) [facility] dical Branch Influenza Virus Unknown Completed [facility] Vaccine Quad .5 mL [facility] IM 6+ MO Branch (FLUZONE/FLULAVAL/F LUARIX) RSV, Monoclonal Unknown Completed [facility] Antibody, [facility] (nirsevimab-alip), Branch 0.5 mL, - 12 Mo. SARS-COV-2 COVID-19 Unknown Completed [facility] VACCINE - (MODERNA) [facility] SARS-COV-2 COVID-19 Unknown Completed [facility] VACCINE - (MODERNA) [facility] SARS-COV-2 COVID-19 Unknown Completed [facility] VACCINE - (MODERNA) [facility] Influenza Virus Unknown Completed [facility] Vaccine Quad .5 mL [facility] 6+ MO Branch (FLUZONE/FLULAVAL/F LUARIX) Influenza Virus Unknown Completed [facility] Vaccine Recomb Quad [facility] IM, Preserv and ABX Branc h Free 18-64 YRS Pneumococcal 20 Unknown Completed [facility] Conjugate, PCV20 [facility] dical (Prevnar 20) Branch Influenza Virus Unknown Completed [facility] Vaccine (3+ yrs) [facility] dical Branch Influenza Virus Unknown Completed [facility] Vaccine Quad .5 mL [facility] IM 6+ MO Branch (FLUZONE/FLULAVAL/F LUARIX) RSV, Monoclonal Unknown Completed [facility] Antibody, [facility] (nirsevimab-alip), Branch 0.5 mL, - 12 Mo. SARS-COV-2 COVID-19 Unknown Completed [facility] VACCINE - (MODERNA) [facility] SARS-COV-2 COVID-19 Unknown Completed [facility] VACCINE - (MODERNA) [facility] SARS-COV-2 COVID-19 Unknown Completed [facility] VACCINE - (MODERNA) [facility] Influenza Virus Unknown Completed [facility] Vaccine Quad .5 mL [facility] IM 6+ MO Branch (FLUZONE/FLULAVAL/F LUARIX) Influenza Virus Unknown Completed [facility] Vaccine Recomb Quad [facility] IM, Preserv and ABX Branc h Free 18-64 YRS Pneumococcal 20 Unknown Completed [facility] Conjugate, PCV20 [facility] dical (Prevnar 20) Branch Influenza Virus Unknown Completed [facility] Vaccine (3+ yrs) [facility] dical Branch Influenza Virus Unknown Completed [facility] Vaccine Quad .5 mL [facility] IM 6+ MO Branch (FLUZONE/FLULAVAL/F LUARIX) RSV, Monoclonal Unknown Completed [facility] Antibody, [facility] (nirsevimab-alip), Branch 0.5 mL, - 12 Mo. SARS-COV-2 COVID-19 Unknown Completed [facility] VACCINE - (MODERNA) [facility] SARS-COV-2 COVID-19 Unknown Completed [facility] VACCINE - (MODERNA) [facility] SARS-COV-2 COVID-19 Unknown Completed [facility] of VACCINE - (MODERNA) [facility] Influenza Virus Unknown Completed [facility] Vaccine Quad .5 mL [facility] IM 6+ MO Branch (FLUZONE/FLULAVAL/F LUARIX) Influenza Virus Unknown Completed [facility] Vaccine Recomb Quad [facility] IM, Preserv and ABX Branc h Free 18-64 YRS Pneumococcal 20 Unknown Completed [facility] Conjugate, PCV20 [facility] dical (Prevnar 20) Branch Influenza Virus Unknown Completed [facility] Vaccine (3+ yrs) [facility] dical Branch Influenza Virus Unknown Completed [facility] Vaccine Quad .5 mL [facility] IM 6+ MO Branch (FLUZONE/FLULAVAL/F LUARIX) RSV, Monoclonal Unknown Completed [facility] Antibody, [facility] (nirsevimab-alip), Branch 0.5 mL, - 12 Mo. SARS-COV-2 COVID-19 Unknown Completed Unive rsity of VACCINE - (MODERNA) [facility] Branch SARS-COV-2 COVID-19 Unknown Completed Unive rsity of VACCINE - (MODERNA) [facility] SARS-COV-2 COVID-19 Unknown Completed Unive rsity of VACCINE - (MODERNA) [facility] Branch Influenza Virus Unknown Completed Universit y of Vaccine Quad .5 mL [facility] IM 6+ MO Branch (FLUZONE/FLULAVAL/F LUARIX) Influenza Virus Unknown Completed Universit y of Vaccine Recomb Quad [facility] IM, Preserv and ABX Branc h Free 18-64 YRS Pneumococcal 20 Unknown Completed Universit y of Conjugate, PCV20 [facility] dical (Prevnar 20) Branch Influenza Virus Unknown Completed Universit y of Vaccine (3+ yrs) [facility] dical Branch Influenza Virus Unknown Completed Universit y of Vaccine Quad .5 mL [facility] IM 6+ MO Branch (FLUZONE/FLULAVAL/F LUARIX) RSV, Monoclonal Unknown Completed Universit y of Antibody, [facility] (nirsevimab-alip), Branch 0.5 mL, - 12 Mo. SARS-COV-2 COVID-19 Unknown Completed Unive rsity of VACCINE - (MODERNA) [facility] SARS-COV-2 COVID-19 Unknown Completed Unive rsity of VACCINE - (MODERNA) [facility] SARS-COV-2 COVID-19 Unknown Completed Unive rsity of VACCINE - (MODERNA) [facility] Influenza Virus Unknown Completed Universit y of Vaccine Quad .5 mL [facility] 6+ MO Branch (FLUZONE/FLULAVAL/F LUARIX) Influenza Virus Unknown Completed Universit y of Vaccine Recomb Quad [facility] IM, Preserv and ABX Branc h Free 18-64 YRS Pneumococcal 20 Unknown Completed Universit y of Conjugate, PCV20 [facility] dical (Prevnar 20) Branch Influenza Virus Unknown Completed Universit y of Vaccine (3+ yrs) [facility] dical Branch Influenza Virus Unknown Completed Universit y of Vaccine Quad .5 mL [facility] IM 6+ MO Branch (FLUZONE/FLULAVAL/F LUARIX) RSV, Monoclonal Unknown Completed Universit y of Antibody, [facility] (nirsevimab-alip), Branch 0.5 mL, - 12 Mo. SARS-COV-2 COVID-19 Unknown Completed Unive rsity of VACCINE - (MODERNA) [facility] SARS-COV-2 COVID-19 Unknown Completed Unive rsity of VACCINE - (MODERNA) [facility] SARS-COV-2 COVID-19 Unknown Completed Unive rsity of VACCINE - (MODERNA) [facility] Influenza Virus Unknown Completed Universit y of Vaccine Quad .5 mL [facility] IM 6+ MO Branch (FLUZONE/FLULAVAL/F LUARIX) Influenza Virus Unknown Completed Universit y of Vaccine Recomb Quad [facility] IM, Preserv and ABX Branc h Free 18-64 YRS Pneumococcal 20 Unknown Completed Universit y of Conjugate, PCV20 [facility] dical (Prevnar 20) Branch Influenza Virus Unknown Completed Universit y of Vaccine (3+ yrs) [facility] dical Branch Influenza Virus Unknown Completed Universit y of Vaccine Quad .5 mL [facility] IM 6+ MO Branch (FLUZONE/FLULAVAL/F LUARIX) RSV, Monoclonal Unknown Completed Universit y of Antibody, [facility] (nirsevimab-alip), Branch 0.5 mL, - 12 Mo. SARS-COV-2 COVID-19 Unknown Completed Unive rsity of VACCINE - (MODERNA) [facility] SARS-COV-2 COVID-19 Unknown Completed Unive rsity of VACCINE - (MODERNA) [facility] SARS-COV-2 COVID-19 Unknown Completed Unive rsity of VACCINE - (MODERNA) [facility] Influenza Virus Unknown Completed Universit y of Vaccine Quad .5 mL [facility] IM 6+ MO Branch (FLUZONE/FLULAVAL/F LUARIX) Influenza Virus Unknown Completed Universit y of Vaccine Recomb Quad [facility] IM, Preserv and ABX Branc h Free 18-64 YRS Pneumococcal 20 Unknown Completed Universit y of Conjugate, PCV20 [facility] dical (Prevnar 20) Branch Influenza Virus Unknown Completed Universit y of Vaccine (3+ yrs) [facility] dical Branch Influenza Virus Unknown Completed Universit y of Vaccine Quad .5 mL [facility] IM 6+ MO Branch (FLUZONE/FLULAVAL/F LUARIX) RSV, Monoclonal Unknown Completed Universit y of Antibody, [facility] (nirsevimab-alip), Branch 0.5 mL, - 12 Mo. SARS-COV-2 COVID-19 Unknown Completed Unive rsity of VACCINE - (MODERNA) [facility] Branch SARS-COV-2 COVID-19 Unknown Completed Unive rsity of VACCINE - (MODERNA) [facility] SARS-COV-2 COVID-19 Unknown Completed Unive rsity of VACCINE - (MODERNA) [facility] Branch Influenza Virus Unknown Completed Universit y of Vaccine Quad .5 mL [facility] IM 6+ MO Branch (FLUZONE/FLULAVAL/F LUARIX) Influenza Virus Unknown Completed Universit y of Vaccine Recomb Quad [facility] IM, Preserv and ABX Branc h Free 18-64 YRS Pneumococcal 20 Unknown Completed Universit y of Conjugate, PCV20 [facility] dical (Prevnar 20) Branch Influenza Virus Unknown Completed Universit y of Vaccine (3+ yrs) [facility] dical Branch Influenza Virus Unknown Completed Universit y of Vaccine Quad .5 mL [facility] IM 6+ MO Branch (FLUZONE/FLULAVAL/F LUARIX) RSV, Monoclonal Unknown Completed Universit y of Antibody, [facility] (nirsevimab-alip), Branch 0.5 mL, - 12 Mo. SARS-COV-2 COVID-19 Unknown Completed Unive rsity of VACCINE - (MODERNA) [facility] SARS-COV-2 COVID-19 Unknown Completed Unive rsity of VACCINE - (MODERNA) [facility] SARS-COV-2 COVID-19 Unknown Completed Unive rsity of VACCINE - (MODERNA) [facility] Influenza Virus Unknown Completed Universit y of Vaccine Quad .5 mL [facility] 6+ MO Branch (FLUZONE/FLULAVAL/F LUARIX) Influenza Virus Unknown Completed Universit y of Vaccine Recomb Quad [facility] IM, Preserv and ABX Branc h Free 18-64 YRS Pneumococcal 20 Unknown Completed Universit y of Conjugate, PCV20 [facility] dical (Prevnar 20) Branch Influenza Virus Unknown Completed Universit y of Vaccine (3+ yrs) [facility] dical Branch Influenza Virus Unknown Completed Universit y of Vaccine Quad .5 mL [facility] IM 6+ MO Branch (FLUZONE/FLULAVAL/F LUARIX) RSV, Monoclonal Unknown Completed Universit y of Antibody, [facility] (nirsevimab-alip), Branch 0.5 mL, - 12 Mo. SARS-COV-2 COVID-19 Unknown Completed Unive rsity of VACCINE - (MODERNA) [facility] SARS-COV-2 COVID-19 Unknown Completed Unive rsity of VACCINE - (MODERNA) [facility] SARS-COV-2 COVID-19 Unknown Completed Unive rsity of VACCINE - (MODERNA) [facility] Influenza Virus Unknown Completed Universit y of Vaccine Quad .5 mL [facility] IM 6+ MO Branch (FLUZONE/FLULAVAL/F LUARIX) Influenza Virus Unknown Completed Universit y of Vaccine Recomb Quad [facility] IM, Preserv and ABX Branc h Free 18-64 YRS Pneumococcal 20 Unknown Completed Universit y of Conjugate, PCV20 [facility] dical (Prevnar 20) Branch Influenza Virus Unknown Completed Universit y of Vaccine (3+ yrs) [facility] dical Branch Influenza Virus Unknown Completed Universit y of Vaccine Quad .5 mL [facility] IM 6+ MO Branch (FLUZONE/FLULAVAL/F LUARIX) RSV, Monoclonal Unknown Completed Universit y of Antibody, [facility] (nirsevimab-alip), Branch 0.5 mL, - 12 Mo. SARS-COV-2 COVID-19 Unknown Completed Unive rsity of VACCINE - (MODERNA) [facility] SARS-COV-2 COVID-19 Unknown Completed Unive rsity of VACCINE - (MODERNA) [facility] SARS-COV-2 COVID-19 Unknown Completed Unive rsity of VACCINE - (MODERNA) [facility] Influenza Virus Unknown Completed Universit y of Vaccine Quad .5 mL [facility] 6+ MO Branch (FLUZONE/FLULAVAL/F LUARIX) Influenza Virus Unknown Completed Universit y of Vaccine Recomb Quad [facility] IM, Preserv and ABX Branc h Free 18-64 YRS Pneumococcal 20 Unknown Completed Universit y of Conjugate, PCV20 [facility] dical (Prevnar 20) Branch Influenza Virus Unknown Completed Universit y of Vaccine (3+ yrs) [facility] dical Branch Influenza Virus Unknown Completed Universit y of Vaccine Quad .5 mL [facility] IM 6+ MO Branch (FLUZONE/FLULAVAL/F LUARIX) RSV, Monoclonal Unknown Completed Universit y of Antibody, [facility] (nirsevimab-alip), Branch 0.5 mL, - 12 Mo. Vital Signs Vital Name Observation Time Observation Value Comments Source Systolic blood 2023-04-04 16:19:00 95 mm[Hg] Univer sity of pressure [facility] Diastolic blood 2023-04-04 16:19:00 66 mm[Hg] Unive rsity of pressure [facility] Heart rate 2023-04-04 16:19:00 66 /min [facility] Body temperature 2023-04-04 15:57:00 35.89 [facility] Respiratory rate 2023-04-04 15:57:00 16 /min [facility] Body height 2023-04-04 15:57:00 154.9 cm [facility] Body weight 2023-04-04 15:57:00 107.956 kg [facility] BMI 2023-04-04 15:57:00 44.97 kg/m2 [facility] Oxygen saturation in 2023-04-04 15:57:00 95 /min University of Arterial blood by [facility] merlyn Pulse oximetry Branch Systolic blood 2023-03-28 17:06:00 105 mm[Hg] Univer sity of [facility] Diastolic blood 2023-03-28 17:06:00 64 mm[Hg] Unive rsity of [facility] Heart rate 2023-03-28 17:06:00 63 /min [facility] Body temperature 2023-03-28 17:06:00 36.28 Marya [facility] Respiratory rate 2023-03-28 17:06:00 18 /min [facility] Oxygen saturation in 2023-03-28 17:06:00 98 /min University of Arterial blood by [facility] Pulse oximetry Branch Body weight 2023-03-28 07:00:00 112.674 kg [facility] BMI 2023-03-28 07:00:00 46.93 kg/m2 [facility] Body height 2023-03-27 18:27:00 154.9 cm [facility] Systolic blood 2023-03-25 16:22:00 95 mm[Hg] Univer [facility]ity of [facility] Diastolic blood 2023-03-25 16:22:00 61 mm[Hg] Unive rsity of [facility] Heart rate 2023-03-25 16:22:00 63 /min [facility] Body temperature 2023-03-25 16:22:00 36.28 Marya [facility] Respiratory rate 2023-03-25 16:22:00 16 /min [facility] Body height 2023-03-25 16:22:00 154.9 cm [facility] Body weight 2023-03-25 16:22:00 111.585 kg [facility] BMI 2023-03-25 16:22:00 46.48 kg/m2 Universi ty [facility] Oxygen saturation in 2023-03-25 16:22:00 97 /min [facility] of Arterial blood by [facility] Pulse oximetry Branch Systolic blood 2023-03-20 20:28:00 96 mm[Hg] Univer sity of pressure [facility] Diastolic blood 2023-03-20 20:28:00 57 mm[Hg] Unive rsity of pressure [facility] Heart rate 2023-03-20 20:28:00 77 /min [facility]i ty [facility] Body height 2023-03-20 20:28:[address] [facility] Body weight 2023-03-20 20:28:00 112.038 kg Universi [facility] BMI 2023-03-20 20:28:00 46.67 kg/m2 Universi [facility] Oxygen saturation in 2023-03-20 20:28:00 97 /min [facility] of Arterial blood by [facility] Pulse oximetry Branch height 2022-10-24 11:00:00 61 [in_i] [facility] weight 2022-10-24 11:00:00 248 [lb_av] [facility] temperature 2022-10-24 11:00:00 98.0 [degF] [facility] bmi 2022-10-24 11:00:00 46.85 kg/m2 [facility] blood pressure 2022-10-24 11:00:00 120 mm[Hg] [facility] blood pressure 2022-10-24 11:00:00 80 mm[Hg] [facility] - diastolic [facility] height 2022-10-17 11:00:00 61 [in_i] [facility] weight 2022-10-17 11:00:00 248 [lb_av] [facility] bmi 2022-10-17 11:00:00 46.85 kg/m2 [facility] blood pressure 2022-10-17 11:00:00 120 mm[Hg] [facility] blood pressure 2022-10-17 11:00:00 84 mm[Hg] [facility] diastolic [facility] height 2022-10-10 15:45:00 61 [in_i] [facility] weight 2022-10-10 15:45:00 253 [lb_av] Common S [facility] temperature 2022-10-10 15:45:00 98.0 [degF] Common S [facility] bmi 2022-10-10 15:45:00 47.8 kg/m2 [facility] S [facility] blood pressure 2022-10-10 15:45:00 120 mm[Hg] [facility] systolic [facility] blood pressure 2022-10-10 15:45:00 84 mm[Hg] [facility] diastolic [facility] Systolic blood 2022-10-03 14:55:00 90 mm[Hg] Univer sity of [facility] Diastolic blood 2022-10-03 14:55:00 63 mm[Hg] Unive rsity of [facility] Heart rate 2022-10-03 14:55:00 63 /min [facility]i ty [facility] Body height 2022-10-03 14:55:00 154.9 cm [facility] Body weight 2022-10-03 14:55:00 116.166 kg [facility] BMI 2022-10-03 14:55:00 48.39 kg/m2 [facility] Oxygen saturation in 2022-10-03 14:55:00 96 /min [facility] Arterial blood by [facility] Pulse oximetry Branch Systolic blood 2022-10-02 14:43:00 92 mm[Hg] Univer sity of [facility] Diastolic blood 2022-10-02 14:43:00 61 mm[Hg] Unive rsity of [facility] Heart rate 2022-10-02 14:43:00 71 /min [facility]i ty [facility] Respiratory rate 2022-10-02 14:39:00 19 /min Univ ersity of [facility] Body height 2022-10-02 14:39:00 154.9 cm Universi ty of [facility] Body weight 2022-10-02 14:39:00 115.486 kg Universi ty of [facility] BMI 2022-10-02 14:39:00 48.11 kg/m2 Universi ty of [facility] Oxygen saturation in 2022-10-02 14:39:00 94 /min [facility] of Arterial blood by [facility] Pulse oximetry Branch Systolic blood 2022-09-27 19:22:00 111 mm[Hg] Univer sity of pressure [facility] Diastolic blood 2022-09-27 19:22:00 72 mm[Hg] Unive rsity of pressure [facility] Heart rate 2022-09-27 19:22:00 70 /min Universi ty of [facility] Respiratory rate 2022-09-27 19:22:00 18 /min Univ [facility] Body height 2022-09-27 19:22:[address] [facility] Body weight 2022-09-27 19:22:[address] [facility] BMI 2022-09-27 19:22:00 48.05 kg/m2 [facility]i [facility] Oxygen saturation in 2022-09-27 19:22:00 99 /min [facility] Arterial blood by [facility] Pulse oximetry Branch height 2022-09-16 13:30:00 61 [in_i] Common S [facility]irit [facility] weight 2022-09-16 13:30:00 253 [lb_av] Common S pirit [facility] temperature 2022-09-16 13:30:00 98.4 [degF] Common S pirit - [facility] bmi 2022-09-16 13:30:00 47.8 kg/m2 Common [facility] pirit [facility] blood pressure 2022-09-16 13:30:00 118 mm[Hg] [facility] systolic [facility] blood pressure 2022-09-16 13:30:00 72 mm[Hg] [facility] diastolic [facility] height 2022-08-29 10:40:00 61 [in_i] [facility] weight 2022-08-29 10:40:00 253.6 [lb_av] [facility] temperature 2022-08-29 10:40:00 98.2 [degF] [facility] bmi 2022-08-29 10:40:00 47.91 kg/m2 [facility] oximetry 2022-08-29 10:40:00 95 % [facility] respiratory rate 2022-08-29 10:40:00 15 /min Comm on [facility] blood pressure 2022-08-29 10:40:00 113 mm[Hg] [facility] systolic [facility] blood pressure 2022-08-29 10:40:00 64 mm[Hg] [facility] diastolic [facility] Systolic blood 2022-08-19 15:57:00 90 mm[Hg] Univer sity of [facility] Diastolic blood 2022-08-19 15:57:00 63 mm[Hg] Unive rsity of [facility] Heart rate 2022-08-19 15:57:00 67 /min [facility] Body height 2022-08-19 15:57:00 154.9 cm [facility] Body weight 2022-08-19 15:57:00 113.898 kg [facility] BMI 2022-08-19 15:57:00 47.44 kg/m2 [facility] Oxygen saturation in 2022-08-19 15:57:00 96 /min [facility] Arterial blood by [facility] Pulse oximetry Branch Systolic blood 2022-07-08 19:02:00 95 mm[Hg] Univer sity of [facility] Diastolic blood 2022-07-08 19:02:00 54 mm[Hg] Unive rsity of [facility] Heart rate 2022-07-08 19:02:00 62 /min [facility] Body temperature 2022-07-08 19:02:00 36.33 Marya Univ ersity of [facility] Respiratory rate 2022-07-08 19:02:00 18 /min [facility] Body height 2022-07-08 19:02:00 154.9 cm [facility] Body weight 2022-07-08 19:02:00 115.713 kg [facility] BMI 2022-07-08 19:02:00 48.20 kg/m2 [facility] Oxygen saturation in 2022-07-08 19:02:00 99 /min University Arterial blood by [facility] Pulse oximetry Branch height 2022-05-30 13:40:00 61 [in_i] [facility] weight 2022-05-30 13:40:00 249.4 [lb_av] [facility] temperature 2022-05-30 13:40:00 97.4 [degF] [facility] bmi 2022-05-30 13:40:00 47.12 kg/m2 [facility] oximetry 2022-05-30 13:40:00 96 % [facility] respiratory rate 2022-05-30 13:40:00 17 /min Comm on [facility] blood pressure 2022-05-30 13:40:00 119 mm[Hg] [facility] systolic [facility] blood pressure 2022-05-30 13:40:00 68 mm[Hg] Common [facility] diastolic [facility] height 2022-05-30 14:00:00 61 [in_i] [facility] weight 2022-05-30 14:00:00 249.4 [lb_av] [facility] temperature 2022-05-30 14:00:00 97.4 [degF] [facility] bmi 2022-05-30 14:00:00 47.12 kg/m2 [facility] oximetry 2022-05-30 14:00:00 96 % [facility] respiratory rate 2022-05-30 14:00:00 17 /min [facility] blood pressure 2022-05-30 14:00:00 119 mm[Hg] [facility] systolic [facility] blood pressure 2022-05-30 14:00:00 68 mm[Hg] [facility] diastolic [facility] Systolic blood 2022-04-10 17:14:00 109 mm[Hg] Univer sity of pressure [facility] Diastolic blood 2022-04-10 17:14:00 71 mm[Hg] Unive rsity of pressure [facility] Heart rate 2022-04-10 17:14:00 65 /min Universi ty of [facility] Respiratory rate 2022-04-10 17:14:00 19 /min Univ ersity of [facility] Body height 2022-04-10 17:14:00 154.9 cm Universi ty of [facility] Body weight 2022-04-10 17:14:00 115.123 kg Universi ty of [facility] BMI 2022-04-10 17:14:00 47.96 kg/m2 Universi ty [facility] Oxygen saturation in 2022-04-10 17:14:00 97 /min [facility] Arterial blood by [facility] Pulse oximetry Branch Systolic blood 2022-02-25 18:19:00 114 mm[Hg] Univer sity of pressure [facility] Diastolic blood 2022-02-25 18:19:00 74 mm[Hg] Unive rsity of pressure [facility] Heart rate 2022-02-25 18:19:00 79 /min Universi ty of [facility] Body temperature 2022-02-25 18:19:00 36.17 Marya Univ ersity of [facility] Respiratory rate 2022-02-25 18:19:00 16 /min Univ ersity of [facility] Body weight 2022-02-25 18:19:00 114.443 kg Universi ty of [facility] BMI 2022-02-25 18:19:00 47.67 kg/m2 Universi ty of [facility] height 2022-01-24 11:00:00 61 [in_i] [facility] weight 2022-01-24 11:00:00 250 [lb_av] Common S pirit [facility] temperature 2022-01-24 11:00:00 97.3 [degF] Common S [facility] bmi 2022-01-24 11:00:00 47.23 kg/m2 Common S [facility] oximetry 2022-01-24 11:00:00 95 % [facility] S [facility] respiratory rate 2022-01-24 11:00:00 18 /min Comm on [facility] blood pressure 2022-01-24 11:00:00 100 mm[Hg] Common [facility] - systolic [facility] blood pressure 2022-01-24 11:00:00 59 mm[Hg] Common [facility] - diastolic [facility] height 2021-12-04 10:20:00 [facility] weight 2021-12-04 10:20:00 260 [lb_av] [facility] temperature 2021-12-04 10:20:00 97.3 [degF] [facility] S [facility] bmi 2021-12-04 10:20:00 49.12 kg/m2 [facility] S [facility] oximetry 2021-12-04 10:20:00 96 % [facility] S [facility] respiratory rate 2021-12-04 10:20:00 18 /min [facility] on [facility] blood pressure 2021-12-04 10:20:00 110 mm[Hg] Common [facility] - systolic [facility] blood pressure 2021-12-04 10:20:00 65 mm[Hg] [facility] height 2021-09-04 09:40:00 62.25 [in_i] [facility] weight 2021-09-04 09:40:00 261.4 [lb_av] [facility] temperature 2021-09-04 09:40:00 98.1 [degF] [facility] bmi 2021-09-04 09:40:00 47.42 kg/m2 Common S [facility] oximetry 2021-09-04 09:40:00 100 % Common [facility] pirit [facility] respiratory rate 2021-09-04 09:40:00 16 /min Comm on [facility] blood pressure 2021-09-04 09:40:00 110 mm[Hg] [facility] systolic [facility] blood pressure 2021-09-04 09:40:00 84 mm[Hg] [facility] diastolic [facility] height 2021-06-05 10:00:00 62.25 [in_i] [facility] weight 2021-06-05 10:00:00 259 [lb_av] [facility] temperature 2021-06-05 10:00:00 98.1 [degF] [facility] bmi 2021-06-05 10:00:00 46.99 kg/m2 [facility] oximetry 2021-06-05 10:00:00 96 % [facility] respiratory rate 2021-06-05 10:00:00 18 /min Comm on [facility] blood pressure 2021-06-05 10:00:00 96 mm[Hg] Common [facility] - systolic [facility] blood pressure 2021-06-05 10:00:00 50 mm[Hg] [facility] diastolic [facility] height 2021-06-05 10:20:00 62.25 [in_i] [facility] - [facility] weight 2021-06-05 10:20:00 259 [lb_av] [facility] temperature 2021-06-05 10:20:00 98.1 [degF] [facility] [facility] bmi 2021-06-05 10:20:00 46.99 kg/m2 Common S pirit [facility] oximetry 2021-06-05 10:20:00 96 % Common S pirit - [facility] blood pressure 2021-06-05 10:20:00 96 mm[Hg] Common Spirit - systolic [facility] blood pressure 2021-06-05 10:20:00 50 mm[Hg] Common Spirit - diastolic [facility] height 2021-05-14 10:00:00 62.25 [in_i] Common [facility] weight 2021-05-14 10:00:00 269 [lb_av] Common S [facility] bmi 2021-05-14 10:00:00 48.8 kg/m2 Common S [facility] height 2021-03-26 10:00:00 62.25 [in_i] Common [facility] weight 2021-03-26 10:00:00 261 [lb_av] [facility] temperature 2021-03-26 10:00:00 97.1 [degF] [facility] bmi 2021-03-26 10:00:00 47.35 kg/m2 [facility] oximetry 2021-03-26 10:00:00 96 % [facility] respiratory rate 2021-03-26 10:00:00 16 /min Comm on Spirit [facility] blood pressure 2021-03-26 10:00:00 104 mm[Hg] Common [facility] - systolic [facility] blood pressure 2021-03-26 10:00:00 54 mm[Hg] Common Spirit - diastolic [facility] height 2021-02-26 08:40:00 62.25 [in_i] Common S [facility] weight 2021-02-26 08:40:00 265 [lb_av] [facility] temperature 2021-02-26 08:40:00 97.2 [degF] [facility] bmi 2021-02-26 08:40:00 48.08 kg/m2 [facility] oximetry 2021-02-26 08:40:00 97 % Common [facility] respiratory rate 2021-02-26 08:40:00 16 /min Comm on Spirit - [facility] blood pressure 2021-02-26 08:40:00 111 mm[Hg] Common Spirit - systolic [facility] blood pressure 2021-02-26 08:40:00 60 mm[Hg] Common Spirit - diastolic [facility] BP Diastolic 2020-09-14 00:00:00 68 mm[Hg] [facility] Height 2020-09-14 00:00:00 61 [in_i] [facility] BMI (Body Mass 2020-09-14 00:00:00 48 kg/m2 [facility] Medical Index) Group BP Systolic 2020-09-14 00:00:00 102 mm[Hg] [facility] Body Weight 2020-09-14 00:00:00 254.2 [lb_av] [facility] BMI (Body Mass 2020-05-31 00:00:00 49.3 kg/m2 [facility] Medical Index) Group BP Systolic 2020-05-31 [...] Mass 2020-03-07 00:00:00 49.4 kg/m2 [facility] Medical Index) Group BP Systolic 2020-03-07 00:00:00 115 mm[Hg] [facility] Body Weight 2020-03-07 00:00:00 261.5 [lb_av] [facility] Systolic (mm Hg) 2021-04-23 16:18:00 Andres rial [facility] Diastolic (mm Hg) 2021-04-23 16:18:00 Mem [facility] [place] [facility] Rate 2021-04-23 16:18:00 [facility] Respitory Rate 2021-04-23 16:18:00 Memori al [facility] Height 2021-04-23 16:18:00 154.94 cm [facility] Weight 2021-04-23 16:18:00 [facility] BMI Calculated 2021-04-23 16:18:00 [facility] [place] Systolic (mm Hg) 2021-03-22 18:19:00 Andres rial [facility] Diastolic (mm Hg) 2021-03-22 18:19:00 Mem orial [place] [facility] Heart Rate 2021-03-22 18:19:00 [facility] Respitory Rate 2021-03-22 18:19:00 Memori al [facility] Height 2021-03-22 18:19:00 154.94 cm [facility] Weight 2021-03-22 18:19:00 [facility] BMI Calculated 2021-03-22 18:19:00 [facility] [place] Systolic (mm Hg) 2021-02-21 18:59:00 Andres [facility] [place] Diastolic (mm Hg) 2021-02-21 18:59:00 Mem orial [place] Heart Rate 2021-02-21 18:59:00 [facility] Respitory Rate 2021-02-21 18:59:00 [facility] [place] Height 2021-02-21 18:59:00 154.94 cm [facility] Weight 2021-02-21 18:59:00 [facility] BMI Calculated 2021-02-21 18:59:00 Memori al [facility] Procedures Procedure Date / Time Performing Clinician Source Performed EXTERNAL PROVIDER RECORDS 2023-04-02 06:01:00 Doctor Unassigned, [facility] PELVIS W WO 2023-03-28 20:17:51 Kate Patiño [facility] POCT GLUCOSE (AUTOMATED) 2023-03-28 18:18:00 Araceli [facility] POCT GLUCOSE (AUTOMATED) 2023-03-28 14:33:00 Araceli [facility] ACTIVATED PARTIAL THRMPLAS 2023-03-28 09:47:00 Itzel Gottlieb [facility] CANCER ANTIGEN-GI (CA 2023-03-28 09:46:00 Itzel Gottlieb [facility] 19-9) [facility] MAGNESIUM 2023-03-28 09:46:00 Itzel Gottlieb [facility] BASIC METABOLIC PANEL (NA, 2023-03-28 09:46:00 Roshan Gottliebmad [facility] K, CL, CO2, GLUCOSE, BUN, [facility] CREATININE, [place]) ALPHA FETOPROTEIN 2023-03-28 09:46:00 Roshan Gottliebmad [facility] POCT GLUCOSE (AUTOMATED) 2023-03-28 02:52:00 Araceli [facility] HCV ANTIBODY 2023-03-27 23:36:00 Itzel Gottlieb [facility] HEPATITIS C VIRUS (HCV) BY 2023-03-27 23:36:00 Roshan Gottliebmad [facility] QUANTITATIVE NAAT [facility] PROTHROMBIN TIME / INR 2023-03-27 23:35:00 Itzel Gottlieb [facility] ACTIVATED PARTIAL THRMPLAS 2023-03-27 23:35:00 Roshan Gottliebmad [facility] POCT GLUCOSE (AUTOMATED) 2023-03-27 23:33:00 Araceli [facility] XR CHEST 1 VW 2023-03-27 20:32:00 Itzel Gottlieb [facility] TRANSTHORACIC ECHO (TTE) 2023-03-27 20:07:40 Itzel Gottlieb [facility] COMPLETE W/ CONTRAST [facility] POCT GLUCOSE (AUTOMATED) 2023-03-27 19:39:00 Araceli [facility] URINALYSIS 2023-03-27 19:38:00 Itzel Gottlieb [facility] US ABDOMEN LIMITED WITH 2023-03-27 17:58:50 Itzel Gottlieb [facility] DOPPLER [facility] LACTIC ACID WHOLE BLOOD 2023-03-27 15:45:00 Itzel Gottlieb [facility] BASIC METABOLIC PANEL (NA, 2023-03-27 15:14:00 Bull Robbins [facility] K, CL, CO2, GLUCOSE, BUN, [facility] CREATININE, [place]) LIPID PANEL (07032)(TOTAL 2023-03-27 15:14:00 Roshan Gottliebmad [facility] CHOLESTEROL, [facility] TRIGLYCERIDES, HDL) CBC WITH DIFF 2023-03-27 15:14:00 Roshan Gottliebmad [facility] GLYCOSYLATED HEMOGLOBIN 2023-03-27 15:14:00 Itzel Gottlieb [facility] (A1C) [facility] MAGNESIUM 2023-03-27 15:12:00 Itzel Gottlieb [facility] FERRITIN SERUM 2023-03-27 15:12:00 Itzel Gottlieb [facility] THYROID STIMULATING 2023-03-27 15:12:00 Itzel Gottlieb [facility] HORMONE [facility] HEPATIC FUNCTION PANEL 2023-03-27 15:12:00 Itzel Gottlieb [facility] ([id number]) (ALB,T.PRO,BILI [facility] T,BU/BC,ALT,AST,ALK PHOS) IRON PANEL 2023-03-27 15:12:00 Itzel Gottlieb [facility] N-TERMINAL PRO-BNP 2023-03-27 15:12:00 Itzel Gottlieb [facility] CT TIBIA FIBULA RIGHT W 2023-03-21 19:36:23 Yusuf Howe [facility] CONTRAST [facility] CONSENT/REFUSAL FOR 2023-03-21 18:41:06 Doctor Unassigned, [facility] DIAGNOSIS AND TREATMENT [facility] REFERRAL- REQUEST/RESPONSE 2023-03-11 05:01:00 Doctor Snehalssigned , [facility] PATIENT AGREEMENTS AND 2022-10-10 05:01:00 Doctor Unassigned, [facility] CONTRACTS [facility] REFERRAL- REQUEST/RESPONSE 2022-09-24 05:01:00 Doctor Unassigned , [facility] PATIENT FINANCIAL 2022-08-19 15:42:43 Doctor Unassigned, [facility] POLICY [facility] SLEEP STUDY DATA REPORT 2022-07-23 06:01:00 Doctor Unassigned, [facility] ASSIGNMENT OF BENEFITS 2022-07-08 18:55:01 Doctor Unassigned, [facility] Name Medical Branch EXTERNAL FIT DNA 2022-06-21 10:34:00 Doctor Unassigned, [facility] PULMONARY FUNCTION REPORT 2022-05-24 06:01:00 Doctor Eliza, [facility] EXTERNAL PROVIDER - ADC 2022-03-05 05:01:00 Doctor Unassigned, [facility] REFERRAL [facility] ASSIGNMENT OF BENEFITS 2022-01-10 15:14:06 Doctor Unassigned, [facility] MAGNESIUM 2021-11-28 15:33:00 Araceli, [facility] [place] [facility] BASIC METABOLIC PANEL (NA, 2021-11-28 15:33:00 Miley houston, [facility] K, CL, CO2, GLUCOSE, BUN, [place] CREATININE, [place]) N-TERMINAL PRO-BNP 2021-11-28 15:33:00 Araceli, [facility] [place] [facility] Automatic Defibrillator [facility] Cholecystectomy [facility] Defibrillation using [facility] automated external cardiac defibrillator Encounters Start End Encounter Admission Attending Care Care Encounter Source Date/Time Date/Time Type Type Clinicians Facility Department ID 2023-04-04 Outpatient Laury RUDDY [facility] [id number] Common 10:50:00 Aissatou 08126 [facility] 2023-03-17 Outpatient Morehouse, STLMLC STLMLC [id number] Common 10:08:00 Aissatou 99126 [facility] 2023-03-11 In[facility] [id number] [facility] 07:00:00 [facility] [id number] [facility] 2023-02-28 Inpatient Elective Meena, [facility] [id number] [facility] 07:00:00 [place] [address] 2023-01-21 Outpatient Morehouse, STLMLC STLMLC [id number] Common 07:22:00 Aissatou 33043 [facility] 2023-01-15 Outpatient Morehouse, STLMLC STLMLC [id number] Common 09:22:00 Aissatou 41361 [facility] 2022-12-05 Outpatient Morehouse, STLMLC STLMLC [id number] Common 13:29:00 Aissatou 96621 [facility] 2022-10-07 Outpatient Morehouse, STLMLC STLMLC [id number] Common 08:14:00 Aissatou 52194 [facility] 2022-09-18 Outpatient Morehouse, STLMLC STLMLC [id number] Common 11:42:00 Aissatou 37985 [facility] 2022-09-16 Outpatient Morehouse, STLMLC STLMLC [id number] Common 15:44:00 Aissatou 08577 [facility] 2022-06-18 Outpatient Morehouse, STLMLC STLMLC [id number] Common 12:01:00 Aissatou 13004 [facility] 2022-05-28 Outpatient Morehouse, STLMLC STLMLC [id number] Common 08:32:00 Aissatou 38898 [facility] 2021-11-30 Outpatient Morehouse, STLMLC STLMLC [id number] Common 07:54:00 Aissatou 80755 [facility] 2021-09-05 Outpatient Morehouse, STLMLC STLMLC [id number] Common 10:56:01 Aissatou [facility] 2021-06-13 Outpatient Morehouse, STLMLC STLMLC [id number] Common 14:38:32 Aissatou [facility] 2021-06-13 Outpatient Morehouse, STLMLC STLMLC [id number] Common 14:35:38 Aissatou [facility] 2021-06-13 Outpatient Morehouse, STLMLC STLMLC [id number] Common 14:01:32 Aissatou 76837 [facility] 2021-06-13 Outpatient Morehouse, STLMLC STLMLC [id number] Common 13:44:49 Aissatou 16773 [facility] 2021-06-13 Outpatient Morehouse, STLMLC STLMLC [id number] Common 13:27:14 Aissatou 41424 [facility] 2021-06-13 Outpatient Morehouse, STLMLC STLMLC [id number] Common 12:57:09 Aissatou 32615 [facility] 2021-06-13 Outpatient Morehouse, STLMLC STLMLC [id number] Common 12:25:50 Aissatou 91903 [facility] 2021-06-13 Outpatient Millender, STLMLC STLMLC [id number] Common 11:42:20 Aleah 27570 [facility] 2021-06-13 Outpatient Millender, STLMLC STLMLC [id number] Common 11:39:36 Aleah 57529 [facility] 2021-06-13 Outpatient Millender, STLMLC STLMLC [id number] Common 11:24:42 Aleah 92949 [facility] 2021-06-13 Outpatient Millender, STLMLC STLMLC [id number] Common 11:08:27 Aleah 28463 [facility] 2023-09-29 2023-09-29 Outpatient R [facility] [id number] Univers 10:00:00 10:00:00 [facility] 2023-04-04 Tank Systems Maintainer Draw, Clc-Bls Lab [facility] 1.2.8 40.114 [id number] Univers 10:45:00 11:00:00 Visit Vaughn Morrison [facility] 350.1.13.10 [place] [id number] [address] OFFICE BUILDING 2023-04-04 2023-04-04 Outpatient R TAMIKO [facility] [id number] Univers 10:45:00 10:45:00 VAUGHN ity of [facility] 2023-04-04 2023-04-04 Office [facility] 1.2.840.114 [id number] Univers 10:00:00 10:40:00 Visit Vaughn [facility] 350.1.13.10 [place] [id number] [address] OFFICE BUILDING 2023-04-03 2023-04-03 Outpatient R RADIOLOGY [facility] [id number] Univers 00:00:00 00:00:00 ity of [facility] 2023-04-02 2023-04-02 Patient IRMA Mehta 1.2.840.114 [id number] Univers 08:30:00 14:07:15 Outreach Kerry ORTIZ 350.1.13.10 i [place] of [place] [id number] [facility] 403 Branch 2023-04-02 2023-04-02 Orders Doctor ALVERTO 1.2.840.114 [id number] Univers 00:00:00 00:00:00 Only Unassigned, BROOK 350.1.13.10 ity of [facility] 4.2.7.2.686 Arnulfo as [id number] [facility] 009 Branch 2023-03-31 2023-03-31 Transition IRMA Duron 1.2.840.114 [id number] Univers 00:00:00 00:00:00 of Care Nancy ORTIZ 350.1.13.10 it y [place] [id number] [facility] 403 Branch 2023-03-31 2023-03-31 Telephone Fuentes NCIRVING 1.2.419.689 [id number] Univers 00:00:00 00:00:00 Loan HEALTH 350.1.13.10 it y of [place] [id number] [address] OFFICE BUILDING 2023-03-27 2023-03-28 Outpatient U [facility] [id number] Univers 08:16:00 16:44:00 jacy SEGURA [facility] 2023-03-27 2023-03-28 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 2023-03-25 2023-03-25 Office Giovany Dill [facility] 1.2.840.114 [id number] Univers 10:40:00 10:52:34 Visit Vaughn Morrison Kay HEALTH 350.1.13.10 ity of [place] 4.2.7.2.686 [facility] [id number] [address] OFFICE BUILDING 2023-03-24 2023-03-24 Telephone [facility] 1.2.840.114 [id number] Univers 00:00:00 00:00:00 Yusuf [place] 350.1.13.10 it y of WOMEN'S 4.2.7.2.686 [facility] [id number] [address] 2023-03-21 2023-03-21 Outpatient R [facility] [id number] Univers 13:41:41 23:59:[address] [facility] 2023-03-21 2023-03-21 Hospital [facility] 1.2.840.114 [id number] Univers 13:41:41 23:59:00 Encounter Yusuf MAX 350.1.13.10 ity of [facility] 4.2.7.2.686 [facility] [id number] [address] 2023-03-21 2023-03-21 Orders Doctor ALVERTO 1.2.840.114 [id number] Univers 00:00:00 00:00:00 Only Unassigned, BROOK 350.1.13.10 ity of [place] [facility] 4.2.7.2.686 Arnulfo [id number] [place] [address] Branch 2023-03-20 2023-03-20 [facility] [id number] Univers 15:45:00 16:29:[address] [facility] 2023-03-20 2023-03-20 Office [facility] 1.2.765.923 [id number] Univers 15:45:00 16:29:48 Visit Yusuf ANNABELLA 350.1.13.10 it y of WOMEN'S 4.2.7.2.686 [facility] [id number] [address] 2023-03-20 2023-03-20 Telephone Rosangela SOLIS 1.2.840.114 [id number] Univers 00:00:00 00:00:00 , Marychuy ORTIZ 350.1.13.10 [place] [id number] [facility] 086 Branch 2023-03-18 2023-03-18 Outpatient GC_GCBZW_Ka PRIV PRIV [id number] [facility] 00:00:00 00:00:00 diyala_S [id number] Medic al 2023-03-17 2023-03-17 Outpatient GC_GCBZW_Ka PRIV PRIV [id number] [facility] 00:00:00 00:00:00 diyala_S [id number] Medic al 2023-03-13 2023-03-13 Refill Italison- ALVARADO 1.2.840.114 10 [id number] Univers 00:00:00 00:00:00 [place], PEDIATRIC 350.1.13.10 ity of [place] [id number] [facility] PRIMARY 059 Branch CARE CLINIC 2023-03-11 2023-03-11 Orders Doctor ALVERTO 1.2.840.114 [id number] Univers 00:00:00 00:00:00 Only Unassigned, BROOK 350.1.13.10 ity of [place] [facility] 4.2.7.2.686 Arnulfo as [id number] [facility] 009 Branch 2023-01-06 2023-01-06 Outpatient R [facility] [id number] Univers 10:00:00 10:00:[address] [facility] 2022-12-23 2022-12-23 [facility] [id number] Univers 13:40:00 13:40:00 VAUGHN [facility] 2022-12-09 2022-12-09 Outpatient R FUENTES, [facility] [id number] Univers 13:40:00 13:40:00 GIOVANY [facility] 2022-11-12 2022-11-12 [facility] [id number] Univers 09:30:00 09:30:00 SOPHIE [facility] 2022-11-12 2022-11-12 Refill Iturradrian- ALVARADO 1.2.840.114 10 [id number] Univers 00:00:00 00:00:00 [place], PEDIATRIC 350.1.13.10 ity of [place] [id number] [facility] PRIMARY 059 [facility] 2022-10-24 2022-10-24 (IN/ASP) [facility] [id number] C ommon 00:00:00 00:00:00 INJ ASP [facility] 2022-10-17 2022-10-17 (IN/ASP) [facility] [id number] C ommon 00:00:00 00:00:00 INJ ASP [facility] 2022-10-10 2022-10-10 Office Papa [facility] 1.2.840.114 [id number] Univers 11:15:00 11:15:00 Visit Mireya SPECIALTY 350.1.13.10 ity of [facility] 4.2.7.2.686 [facility] s CENTER AT [id number] Ar dicjulien VICTORY [address] [place] [address] 2022-10-10 2022-10-10 Outpatient R PAPA [facility] [id number] Univers 11:15:00 11:13:57 MIREYA ity of [facility] 2022-10-10 2022-10-10 Orders Doctor ALVERTO 1.2.840.114 [id number] Univers 00:00:00 00:00:00 Only Unassigned, BROOK 350.1.13.10 ity of [place] [facility] 4.2.7.2.686 Arnulfo as [id number] [facility] 009 Branch 2022-10-10 2022-10-10 (IN/ASP) [facility] [id number] C ommon 00:00:00 00:00:00 INJ ASP [facility] 2022-10-03 2022-10-03 Office Ju [place] 1.2.840.114 [id number] Univers 09:40:00 10:16:13 Visit Kadi SANTANA 350.1.13.10 ity of [place] [facility] [id number] Ar dical NAL 059 [facility] 2022-10-03 2022-10-03 Outpatient R JU, CHOPJDARIAN [facility] [id number] Univers 09:40:00 10:16:[address] ity [facility] 2022-10-02 2022-10-02 Office James [facility] 1.2.349.569 [id number] Univers 11:30:00 12:00:00 Visit Sigifredo SANTANA 350.1.13.10 ity of [place].2.[place] PROF[place] [id number] [facility] 085 [facility] 2022-10-02 2022-10-02 Outpatient R SIGIFREDO RAMIREZ [facility] [id number] Univers 11:30:00 11:30:00 SIGIFREDO RAM[facility] 2022-10-01 2022-10-01 Telephone ItLogan [facility] 1.2.840.11 [id number] Univers 00:00:00 00:00:00 [place], HEALTH 350.1.13.10 ity of [place] [facility]2.[place] [id number] [address] 2022-09-30 2022-09-30 Telephone Rosangela SOLIS 1.2.840.114 [id number] Univers 00:00:00 00:00:00 , Marychuy ORTIZ 350.1.13.10 ity of [place].2.7.2.[place] [id number] [address] 2022-09-30 2022-09-30 Telephone ItLogan [facility] 1.2.840.11 [id number] Univers 00:00:00 00:00:00 [place], HEALTH 350.1.13.10 ity of [place] CL[place] [place] [id number] [address] 2022-09-30 2022-09-30 Telephone ItLogan [facility] 1.2.840.11 [id number] Univers 00:00:00 00:00:00 [place], Y HEALTH 350.1.13.10 ity of [place] [facility] 4.2.7.2.686 [place] [id number] [facility] [address] 2022-09-27 2022-09-27 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 10 ity of [place] 4.2.7.2.686 Arnulfo as BENJAMIN?BLEA [id number] [address] MEDICAL OFFICE BUILDING 2022-09-27 2022-09-27 Outpatient R PANANDREWS MARTIN [facility] [id number] Univers 14:40:00 15:20:[address] [facility] 2022-09-27 2022-09-27 Office [facility] 1.2.840.114 [id number] Univers 14:40:00 15:20:20 Visit [facility] 350.1.13.10 ity of [place] 4.2.7.2.686 Arnulfo as BENJAMIN?BLEA [id number] [address] MEDICAL OFFICE BUILDING 2022-09-24 2022-09-24 Orders Doctor ALVERTO 1.2.840.114 [id number] Univers 00:00:00 00:00:00 Only Unassigned, BROOK 350.1.13.10 ity of [place] [facility] 4.2.7.2.686 Arn[place] as [id number] [address] 2022-09-23 2022-09-23 Telephone Pan [facility] 1.2.840.114 [id number] Univers 00:00:00 00:00:00 [facility] 350.1.13.10 ity [facility] 4.2.7.2.686 Arnulfo as BENJAMIN?BLEA [id number] [address] MEDICAL OFFICE BUILDING 2022-09-23 2022-09-23 (TEL) [facility] [id number] Co mmon 00:00:00 00:00:00 [facility] 2022-09-16 2022-09-16 OFFICE STLMLC STLMLC [id number] Co mmon 00:00:00 00:00:00 VISIT NEW Spir it PT LEVEL 4 - [facility] 2022-09-11 2022-09-11 [facility] [id number] [facility] 00:00:00 00:00[facility] [id number] [id number] [phone] [facility] [address] OFFICE BUILDING 2022-09-09 2022-09-09 (TEL) STLMLC STLMLC [id number] Co mmon 00:00:00 00:00:00 [facility] 2022-08-30 2022-08-30 Telephone Rosangela SOLIS [id number] [facility] 00:00:00 00:00:00 , Marychuy Fishman ANGEL [id number] [id number] [phone] [facility] [address] 2022-08-29 2022-08-29 OFFICE STLMLC STLMLC [id number] Co mmon 00:00:00 00:00:00 VISIT Elieser ESTAB PT - CHI LEVEL 4 [facility] 2022-08-29 2022-08-29 (TEL) STLMLC STLMLC [id number] Co mmon 00:00:00 00:00:00 [facility] 2022-08-28 2022-08-28 Outpatient SOURAV ROBLEDO [facility] [id number] [address] [facility] 09:20:00 09:20:00 [facility] CLINIC (ROC) [id number] [facility] 2022-08-20 2022-08-20 (TEL) STLMLC STLMLC [id number] Co mmon 00:00:00 00:00:00 [facility] 2022-08-19 2022-08-19 Office Johnathan [facility] 1.2.324.604 [id number] [facility] 11:30:00 11:30:00 Visit Latasha SANTANA 350.1.13.10 i ty of [place] [id number] Ar dical [address] 2022-08-19 2022-08-19 Outpatient R JOHNATHAN [facility] [id number] Univers 11:30:00 11:14:01 AFAQ ity of [facility] 2022-08-19 2022-08-19 Orders Doctor ALVERTO 1.2.840.114 [id number] Univers 00:00:00 00:00:00 Only Unassigned, BROOK 350.1.13.10 ity of [place] [facility] 4.2.7.2.686 Arnulfo as [id number] [address] 2022-08-18 2022-08-18 Refill Kaela CHILDERS 1.2.840.114 [id number] Univers 00:00:00 00:00:00 [place], PEDIATRIC 350.1.13.10 ity of [place] [id number] [address] 2022-08-07 2022-08-07 Outpatient R SIGIFREDO RAMIREZ [facility] [id number] Univers 09:30:00 09:30:[address] 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 2.840.114 [id number] Univers 20:00:00 22:30:00 Visit Sigifredo Ramirez 350.1.13. 10 ity of [place] [id number] [place] [address] [address] 2022-07-23 2022-07-23 Outpatient R SIGIFREDO RAMIREZ [facility] [id number] Univers 20:00:00 20:00:00 MARKLOWSIGIFREDO MOROCHO ity of [facility] 2022-07-23 2022-07-23 Orders Doctor DEL TORO 1.2.840.114 [id number] Univers 00:00:00 00:00:00 Only Unassigned, BROOK 350.1.13.10 ity of [place] [facility] 4.2.7.2.686 [place] [id number] [place] [address] [address] 2022-07-15 2022-07-15 Telephone Kaela CHILDERS 1.2.840.114 [id number] Univers 00:00:00 00:00:00 [place], PEDIATRIC 350.1.13.10 ity of [place] [id number] [facility] PRIMARY [address] [place] [address] CARE CLINIC 2022-07-09 2022-07-09 Letter Feliberto, [facility] 1.2.840.114 [id number] Univers 00:00:00 00:00:00 (Out) General HEALTH 350.1.13.10 it y of Cardiology CLEAR 4.2.7.2.686 T [facility] [id number] [address] OFFICE BUILDING 2022-07-08 2022-07-08 Office Kaela CHILDERS 1.2.840.114 [id number] Univers 13:00:00 13:30:00 Visit [place], PEDIATRIC 350.1.13.10 ity of [place] [id number] [address] 2022-07-08 2022-07-08 Outpatient [facility] [id number] Univers 13:00:00 13:00:00 [place] ity of [facility] 2022-07-08 2022-07-08 Orders Doctor DEL TORO 1.2.840.114 [id number] Univers 00:00:00 00:00:00 Only Unassigned, BROOK 350.1.13.10 ity of [place] [facility] 4.2.7.2.686 Arn[place] as [id number] [facility] [address] 2022-07-08 2022-07-08 Telephone [facility] 1.2.840.11 [id number] Univers 00:00:00 00:00:00 Derek Segura HEALTH 350.1.13.10 ity of [facility] 4.2.7.2.[place] [id number] [facility] [address] 2022-06-06 2022-06-06 (TEL) STLMLC STLMLC [id number] Co mmon 00:00:00 00:00:00 Spirit [facility] 2022-06-05 2022-06-05 (TEL) STLMLC STLMLC [id number] Co mmon 00:00:00 00:00:00 [facility] 2022-05-30 2022-05-30 Telephone [facility] 1.2.840.11 [id number] Univers 00:00:00 00:00:00 Derek Segura HEALTH 350.1.13.10 ity of [facility] 4.2.7.2.[place] [id number] [facility] [address] 2022-05-30 2022-05-30 Refill [facility] 1.2.840.114 [id number] Univers 00:00:00 00:00:00 Derek Segura HEALTH 350.1.13.10 ity of [facility] 4.2.7.2.[place] [id number] [facility] [address] 2022-05-30 2022-05-30 OFFICE STLMLC STLMLC [id number] Co mmon 00:00:00 00:00:00 VISIT Spirit ESTAB PT - CHI LEVEL 4 [facility] 2022-05-30 2022-05-30 SUB ANNUAL STLMLC STLMLC [id number] Common 00:00:00 00:00:00 MCR Spirit WELLNESS - CHI VISIT [facility] 2022-05-29 2022-05-29 [facility] 1.2.840.114 [id number] Univers 00:00:00 00:00:00 [place], PEDIATRIC 350.1.13.10 ity of [place] [id number] [facility] PRIMARY [address] CARE CLINIC 2022-05-24 2022-05-24 Tank Systems Maintainer Testing, [facility] Pulmonary Func tion UNIVERSIT 1.2.840.114 [id number] Univers 09:30:00 11:31:11 Visit Alves Miguel Bond [facility] 350.1.13. 10 ity of [facility] 4.2.7.2.[place] [id number] [facility] [address] 2022-05-24 2022-05-24 Outpatient R LILIANA [facility] [id number] Univers 09:30:00 09:30:00 MIGUEL ity of [facility] 2022-05-24 2022-05-24 Orders Doctor DEL TORO 1.2.840.[id number] [place] [address] 00:00:00 00:00:00 Only Unassigned, BROOK 350.1.13.10 ity of [place] [facility] 4.2.7.2.686 Arn[place] as [id number] [facility] [address] 2022-04-26 2022-04-26 Outpatient [facility] [id number] [facility] 09:30:00 09:30:00 [place] ity of [place] [facility] 2022-04-10 2022-04-10 Office James [facility] 1.2.838.613 [id number] [facility] 11:00:00 11:30:00 Visit Sigifredo SANTANA 350.1.13.10 ity of [place] [id number] [address] 2022-04-10 2022-04-10 Outpatient R SIGIFREDO RAMIREZ [facility] [id number] Univers 11:00:00 11:00:[address] [facility] 2022-04-03 2022-04-03 Outpatient [facility] [id number] Univers 08:17:34 23:59:00 [place] ity of [facility] 2022-03-21 2022-03-21 Telephone [facility] 1.2.840.11 4 [id number] Univers 00:00:00 00:00:00 [place] HEALTH 350.1.13.10 ity of [facility] 4.2.7.2.[place] [id number] [address] 2022-03-19 2022-03-19 Outpatient R [facility] [id number] Univers 09:00:00 23:59:00 COLTON ity of [facility] 2022-03-06 2022-03-06 Outpatient R [facility] [id number] Univers 14:00:00 14:00:00 [facility] 2022-03-05 2022-03-05 Orders Doctor DEL TORO 1.2.840.114 [id number] Univers 00:00:00 00:00:00 Only Unassigned, BROOK 350.1.13.10 [facility] 4.2.7.2.686 [place] [id number] [address] 2022-03-04 2022-03-04 (TEL) [facility] [id number] Co mmon 00:00:00 00:00:00 [facility] 2022-03-04 2022-03-04 (TEL) [facility] [id number] Co mmon 00:00:00 00:00:00 [facility] 2022-02-25 2022-02-25 Outpatient R [facility] [id number] Univers 13:30:00 13:53:55 genevieve SEGURAy of [facility] 2022-02-25 2022-02-25 Office [facility] CHILDERS 1.2.840.114 [id number] Univers 13:30:00 13:53:55 Visit [place] [facility] 350.1.13.10 ity of [place] [id number] [facility] PRIMARY [address] CARE CLINIC 2022-02-25 2022-02-25 Telephone Kaela CHILDERS 1.2.840.114 [id number] Univers 00:00:00 00:00:00 [place], PEDIATRIC 350.1.13.10 ity of [place] [id number] [facility] PRIMARY [address] [facility] 2022-02-13 2022-02-13 (TEL) STLMLC STLMLC [id number] Co mmon 00:00:00 00:00:00 [facility] 2022-02-06 2022-02-06 (TEL) STLMLC STLMLC [id number] Co mmon 00:00:00 00:00:00 [facility] 2022-01-24 2022-01-24 OFFICE STLMLC STLMLC [id number] Co mmon 00:00:00 00:00:00 VISIT [facility] 4 [facility] 2022-01-23 2022-01-23 (TEL) STLMLC STLMLC [id number] Co mmon 00:00:00 00:00:00 [facility] 2022-01-11 2022-01-11 (TEL) STLMLC STLMLC [id number] Co mmon 00:00:00 00:00:00 [facility] 2022-01-10 2022-01-10 Outpatient R RADIOLOGY [facility] [id number] Univers 10:15:43 23:59:00 ity of [facility] 2022-01-10 2022-01-10 Hospital Radiology [facility] 1.2.840.114 [id number] Univers 10:15:43 23:59:00 Encounter MAX 350.1.13.10 ity of [facility] [place] [id number] [facility] [address] 2022-01-10 2022-01-10 Tank Systems Maintainer Arlette, Lena Lab Main [facility] 1.2.8 40.114 [id number] Univers 11:15:00 11:30:00 Visit Milo Bennett 350.1.13.10 ity of [place] [id number] Ar dical [facility] [address] BUILDING 2022-01-10 2022-01-10 Orders Doctor ALVERTO 1.2.840.114 [id number] Univers 00:00:00 00:00:00 Only Unassigned, BROOK 350.1.13.10 ity of [place] [facility] 4.2.7.2.686 [place] as [id number] [facility] [address] 2022-01-01 2022-01-[address] [facility] 1.2.840.114 [id number] Univers 00:00:00 00:00:00 ARACELIS Segura 350.1.13.10 ity of [place].2.[place] [id number] [facility] [address] OFFICE BUILDING 2021-12-19 2021-12-19 Outpatient R RADIOLOGY [facility] RAD [id number] Univers 10:20:00 10:20:00 ity of [facility] 2021-12-04 2021-12-04 Telephone [facility] 1.2.840.11 [id number] Univers 00:00:00 00:00:00 Derek Segura 350.1.13.10 ity of [place] [facility] 4.2.7.2.[place] [id number] [facility] [address] 2021-12-04 2021-12-04 OFFICE [facility] [id number] Co mmon 00:00:00 00:00:00 VISIT Spirit ESTAB PT - CHI LEVEL 4 [facility] 2021-11-28 2021-11-28 Tank Systems Maintainer Arlette, Lena Lab Main [facility] 1.2.8 40.114 [id number] Univers 10:00:00 10:15:00 Visit Rodrigo-Wood Segura 3 50.1.13.10 ity of [place].2.[place] [id number] [place] [address] [address] BUILDING 2021-11-28 2021-11-28 Outpatient R [facility] [id number] Univers 10:00:00 10:00:00 [place], ity of [place] [facility] 2021-11-27 2021-11-27 Telephone Kaela CHILDERS 1.2.840.114 [id number] Univers 00:00:00 00:00:00 [place], PEDIATRIC 350.1.13.10 ity of [place] [id number] [address] 2021-10-31 2021-10-31 (TEL) [facility] [id number] Co mmon 00:00:00 00:00:00 [facility] 2021-10-19 2021-10-19 [facility] [id number] Univers 11:00:00 11:00:00 MIREYA [facility] 2021-10-18 2021-10-18 Telephone Kaela CHILDERS 1.2.840.114 [id number] Univers 00:00:00 00:00:00 [place], PEDIATRIC 350.1.13.10 ity of [place] [id number] [address] 2021-10-18 2021-10-18 Telephone Kaela CHILDERS 1.2.840.114 [id number] Univers 00:00:00 00:00:00 [place], PEDIATRIC 350.1.13.10 ity of [place] [id number] [address] 2021-09-04 2021-09-04 Outpatient R ABEBA [facility] [id number] Univers 14:00:00 17:37:46 FE [facility] 2021-09-04 2021-09-04 Office [facility] 1.2.840.114 [id number] Univers 14:00:00 17:37:46 Visit Fe SPECIALTY 350.1.13.10 ity of [place].2.[place] C[place] AT [id number] Ar stephanie DUENAS [address] [place] 2021-09-04 2021-09-04 Orders Doctor ALVERTO 1.2.840.114 [id number] Univers 00:00:00 00:00:00 Only Unassigned, BROOK 350.1.13.10 ity of [place] [facility] 4.2.7.2.686 Arnulfo as [id number] [facility] [address] 2021-09-04 2021-09-04 OFFICE [facility] [id number] Co mmon 00:00:00 00:00:00 VISIT Spirit ESTAB PT - CHI LEVEL 4 [facility] 2021-09-03 2021-09-03 Telephone Kaela CHILDERS 1.2.840.114 [id number] Univers 00:00:00 00:00:00 [place], PEDIATRIC 350.1.13.10 it[place] of [place] [id number] [facility] 059 [facility] 2021-08-31 2021-08-31 Telephone GenevieveCymoGen DxsheldonCitymapper LimitedCR[facility] 1.2.840.114 [id number] Univers 00:00:00 00:00:00 [place] [facility] 350.1.13.10 ity of [place] [id number] [facility] [address] OFFICE BUILDING 2021-08-29 2021-08-29 Outpatient R SARAI [facility] [id number] Univers 09:00:00 10:28:37 MANDI ity of [facility] 2021-08-29 2021-08-29 Nurse Nurse, Alexander CHILDERS 1.2.84 0.114 [id number] Univers 09:00:00 09:20:00 Visit Unknown, Attending PEDIATRIC 350.1.13. 10 ity of [place] [id number] [facility] 314 [facility] 2021-08-29 2021-08-29 Outpatient R DANYELLE, [facility] [id number] Univers 09:00:00 09:00:00 ATTENDING ity of [facility] 2021-08-24 2021-08-24 Outpatient R [facility] [id number] Univers 16:30:00 16:50:59 [place], ity of [place] [facility] 2021-08-24 2021-08-24 Office Kaela CHILDERS 1.2.840.114 [id number] Univers 16:30:00 16:50:59 Visit [place] PEDIATRIC 350.1.13.10 it[place] of [place] [id number] [address] 2021-07-30 2021-07-30 (TEL) [facility] [id number] Co mmon 00:00:00 00:00:00 [facility] 2021-07-24 2021-07-24 Ambulatory nullFlavo MNA [id number] Memoria 16:30:00 16:30:00 Pre-Reg r Neurology 05 l Isael Villaseñor 2021-07-24 2021-07-24 Ambulatory nullFlavo MNA [id number] Memoria 16:30:00 16:30:00 Pre-Reg r Neurology 05 l Isael Villaseñor 2021-07-24 2021-07-24 Outpatient MHIE MHIE [id number] Memoria 10:30:00 10:30:00 05 l Kasi 2021-07-24 2021-07-24 Outpatient Daisy MISCHER MISCHER [id number] 10:30:00 10:30:00 Regulo Garcia 2021-07-12 2021-07-12 Telephone [facility] 1.2.686.323 [id number] Univers 00:00:00 00:00:00 Joel SANTANA 350.1.13.10 ity [place] [id number] [address] 2021-07-06 2021-07-06 Telephone [facility] 1.2.262.534 [id number] Univers 00:00:00 00:00:00 Joel SANTANA 350.1.13.10 ity of [place] [id number] Ar dical NAL 059 [facility] 2021-07-05 2021-07-05 Outpatient R YUE [facility] [id number] Univers 08:54:58 23:59:[address] [facility] 2021-07-05 2021-07-05 Hospital [facility] 1.2.840.114 [id number] Univers 08:54:58 23:59:00 Encounter Sendil Suellen SANTANA 350.1.13.10 ity of [place].2.[place] [id number] [facility] 843 [facility] 2021-07-05 2021-07-05 [facility] [id number] Univers 09:00:00 09:00:[address] [facility] 2021-06-25 2021-06-25 Ward [facility] 1.2.046.424 [id number] Univers 00:00:00 00:00:00 Sendil Suellen SANTANA 350.1.13.10 ity of [place].2.[place] [id number] [facility] NAL [address] [place] [address] 2021-06-19 2021-06-19 Office Yue NCIRVING 1.2.840.114 [id number] Univers 14:00:00 14:49:22 Visit Joel SANTANA 350.1.13.10 ity of [place].2.[place] [id number] Ar dical NAL 059 [facility] 2021-06-19 2021-06-19 Outpatient R YUE [facility] [id number] Univers 14:00:00 14:49:[address] [facility] 2021-06-19 2021-06-19 [facility] [id number] Univers 14:00:00 14:49:[address] [facility] 2021-06-19 2021-06-19 Orders Doctor ALVERTO 1.2.840.114 [id number] Univers 00:00:00 00:00:00 Only Unassigned, BROOK 350.1.13.10 ity of [facility] 4.2.7.2.686 [place] as [id number] [address] 2021-06-05 2021-06-05 OFFICE STLMLC STLMLC [id number] Co mmon 00:00:00 00:00:00 VISIT Spirit ESTAB PT - CHI LEVEL 4 [facility] 2021-06-05 2021-06-05 SUB ANNUAL STLMLC STLMLC [id number] Common 00:00:00 00:00:00 MCR Spirit WELLNESS - CHI VISIT [facility] 2021-05-15 2021-05-15 Outpatient R [facility] [id number] Univers 17:00:00 17:00:00 ity of [facility] 2021-05-14 2021-05-14 (TEL) STLMLC STLMLC [id number] Co mmon 00:00:00 00:00:00 Spirit [facility] 2021-05-14 2021-05-14 OFFICE STLMLC STLMLC [id number] Co mmon 00:00:00 00:00:00 VISIT EST Spir it PT LEVEL 3 - [facility] 2021-05-14 2021-05-14 (TEL) STLMLC STLMLC [id number] Co mmon 00:00:00 00:00:00 [facility] 2021-04-23 2021-04-24 Outpatient nullFlavo MNA [id number] Memoria 16:00:00 05:59:59 r Neurology 04 radha Villaseñor 2021-04-23 2021-04-24 Outpatient nullFlavo MNA [id number] Memoria 16:00:00 05:59:59 r Neurology 04 radha Villaseñor 2021-04-23 2021-04-23 Outpatient JEANNIE Villa [id number] 10:00:00 23:59:59 Regulo Garland Garcia 2021-04-23 2021-04-23 Outpatient MHIE APPLE [id number] Memoria 10:00:00 10:00:00 Garland Villaseñor 2021-03-30 2021-03-30 (TEL) STLMLC STLMLC [id number] Co mmon 00:00:00 00:00:00 Spirit - [facility] 2021-03-26 2021-03-26 OFFICE STLMLC STLMLC [id number] Co mmon 00:00:00 00:00:00 VISIT Spirit ESTAB PT - CHI LEVEL 4 [facility] 2021-03-22 2021-03-23 Outpatient nullFlavo MNA [id number] Memoria 18:00:00 04:59:59 r Neurology 03 radha Villaseñor 2021-03-22 2021-03-23 Outpatient nullFlavo MNA [id number] Memoria 18:00:00 04:59:59 r Neurology 03 l Isael Moranann 2021-03-22 2021-03-22 Outpatient [id number] [id number] 13:00:00 23:59:59 Regulo Lilo Garcia 2021-03-22 2021-03-22 Outpatient MHIE ARIANNEIE [id number] Memoria 13:00:00 13:00:00 03 radha Villaseñor 2021-03-21 2021-03-21 Ambulatory nullFlavo MNA [id number] Memoria 19:15:00 19:15:00 Pre-Reg r Neurology 02 l Isael Villaseñor 2021-03-21 2021-03-21 Ambulatory nullFlavo MNA [id number] Memoria 19:15:00 19:15:00 Pre-Reg r Neurology 02 l Isael Moranann 2021-03-21 2021-03-21 Ambulatory nullFlavo MNA [id number] Memoria 15:30:00 15:30:00 Pre-Reg r Neurology 01 l Isael Moranann 2021-03-21 2021-03-21 Ambulatory nullFlavo MNA [id number] Memoria 15:30:00 15:30:00 Pre-Reg r Neurology 01 radha Moranann 2021-03-21 2021-03-21 Outpatient MHIE MHIE [id number] Memoria 14:15:00 14:15:00 02 radha Villaseñor 2021-03-21 2021-03-21 Outpatient [facility] [id number] 14:15:00 14:15:00 Regulo 02 Jose 2021-03-21 2021-03-21 Outpatient MHIE MHIE [id number] Memoria 10:30:00 10:30:00 01 radah Villaseñor 2021-03-21 2021-03-21 Outpatient ARIANNE VillaMISCHER MHMISCHER [id number] 10:30:00 10:30:00 Regulo Jose 2021-03-13 2021-03-13 (TEL) STLMLC STLMLC [id number] Co mmon 00:00:00 00:00:00 [facility] 2021-03-07 2021-03-07 (TEL) STLMLC STLMLC [id number] Co mmon 00:00:00 00:00:00 [facility] 2021-02-26 2021-02-26 OFFICE STLMLC STLMLC [id number] Co mmon 00:00:00 00:00:[address] 2021-02-21 2021-02-22 Outpatient nullFlavo MNA [id number] Memoria 18:15:00 04:59:59 r Neurology 00 l Isael Villaseñor 2021-02-21 2021-02-22 Outpatient nullFlavo MNA [id number] Memoria 18:15:00 04:59:59 r Neurology 00 l Isael Villaseñor 2021-02-21 2021-02-21 Outpatient LACEY VillaSCHER MISCHER [id number] 13:15:00 23:59:59 Regulo 00 Jose 2021-02-21 2021-02-21 Outpatient MHIE MHIE [id number] Memoria 13:15:00 13:15:00 00 radha Villaseñor 2021-01-18 2021-01-18 Outpatient STLMLC STLMLC [id number] Common 00:00:00 00:00:00 [facility] 2020-12-20 2020-12-20 Outpatient STLMLC STLMLC [id number] Common 00:00:00 00:00:00 [facility] 2020-12-01 2020-12-01 Outpatient STLMLC STLMLC [id number] Common 00:00:00 00:00:00 [facility] 2020-11-30 2020-11-30 Outpatient STLMLC STLMLC [id number] Common 00:00:00 00:00:00 [facility] 2020-11-21 2020-11-21 Outpatient STLMLC STLMLC [id number] Common 00:00:00 00:00:00 [facility] 2020-10-18 2020-10-18 Outpatient STLMLC STLMLC [id number] Common 00:00:00 00:00:00 [facility] 2020-10-06 2020-10-06 Outpatient STLMLC STLMLC [id number] Common 00:00:00 00:00:00 [facility] 2020-09-25 2020-09-25 Outpatient STLMLC STLMLC [id number] Common 00:00:00 00:00:00 [facility] 2020-09-15 2020-09-15 Outpatient Yan_W MMG MMG [id number] [place] 07:15:00 07:15:00 0517 [facility] 2020-09-14 2020-09-14 Outpatient Yan_W MMG MMG [id number] [place] 03:44:00 03:44:00 0429 [facility] 2020-09-14 2020-09-14 Outpatient Yan_W MMG MMG [id number] [place] 03:44:00 03:44:00 0430 [facility] 2020-09-14 2020-09-14 Mansoor Lemus MMG [place] - [id number] [place] 00:00:00 00:00:00 : Ck [facility] [address], [facility], Otolaryngol CAROL manzoNAVA [address] , Ph. 2020-09-13 2020-09-13 Outpatient STLMLC STLMLC [id number] Common 00:00:00 00:00:00 [facility] [place] 2020-09-13 2020-09-13 Outpatient STLMLC STLMLC [id number] Common 00:00:00 00:00:00 [facility] [place] 2020-09-08 2020-09-08 Outpatient Yan_W MMG MMG [id number] [place] 02:57:00 02:57:00 0423 [facility] 2020-09-05 2020-09-05 Outpatient STLMLC STLC [id number] Common 00:00:00 00:00:00 [facility] [place] 2020-06-01 2020-06-01 Outpatient Yan_W MMG MMG [id number] [place] 09:10:00 09:10:00 0203 [facility] 2020-05-31 2020-05-31 Outpatient Yan_W MMG MMG [id number] [place] 09:49:00 09:49:00 0113 [facility] 2020-05-31 2020-05-31 SHUN Garcia [place] - [id number] [place] 00:00:00 00:00:00 MD: Ck [facility] [address], [facility], [place] [facility] [address] , Ph. 2020-04-05 2020-04-05 Outpatient Yan_W MMG MMG [id number] [place] 02:30:00 02:30:00 1118 [facility] 2020-03-13 2020-03-13 Outpatient Yan_W MMG MMG [id number] [place] 09:57:00 09:57:00 1031 [facility] 2020-03-13 2020-03-13 Outpatient Yan_W MMG MMG [id number] [place] 09:56:00 09:56:00 1026 [facility] 2020-03-07 2020-03-07 Outpatient Yan_W MMG MMG [id number] [place] 02:52:00 02:52:00 1020 [facility] 2020-03-07 2020-03-07 Outpatient Yan_W MMG MMG [id number] [place] 02:52:00 02:52:00 1025 [facility] 2020-03-07 2020-03-07 Mansoor Lemus MMG [place] - [id number] [place] 00:00:00 00:00:00 MD: Ck [facility] [address], [facility], Otolaryngol [place]VA [address] , Ph. 2020-02-29 2020-02-29 [facility] [id number] [place] 12:29:00 12:29:00 1013 [facility] 2019-12-27 2019-12-27 [facility] [id number] Common 11:15:00 11:15:[address] [facility] 2019-12-27 2019-12-27 [facility] [id number] Common 09:19:00 09:19:[address] [facility] 2019-10-26 2019-10-26 [facility] [id number] Common 08:15:00 08:15:[address] [facility] 2019-10-20 2019-10-20 [facility] [id number] Common 23:40:00 23:40:[address] [facility] 2019-10-20 2019-10-20 [facility] [id number] Common 14:40:00 14:40:[address] [facility] 2019-08-19 2019-08-19 [facility] [id number] Common 11:54:00 11:54:[address] [facility] 2019-07-25 2019-07-25 [facility] [id number] Common 13:11:00 13:11:[address] [facility] 2019-07-20 2019-07-20 [facility] [id number] Common 11:00:00 11:00:[address] [facility] 2019-04-24 2019-04-24 [facility] [id number] Common 03:26:00 03:26:[address] [facility] 2019-04-20 2019-04-20 [facility] [id number] Common 09:40:00 09:40:[address] [facility] 2019-03-22 2019-03-22 Outpatient zzzAmy Judy [id number] Common 14:55:00 14:55:00 Schochler Schochler Sp loren DO [facility] 2019-01-19 2019-01-19 [facility] [id number] Common 14:40:00 14:40:[address] [facility] 2018-11-04 2018-11-04 [facility] [id number] Common 12:03:00 12:03:[address] [facility] 2018-08-26 2018-08-26 [facility] [id number] Common 11:20:00 11:20:[address] [facility] 2018-08-14 2018-08-14 [facility] [id number] Common 14:30:00 14:30:[address] [facility] 2018-08-03 2018-08-03 [facility] [id number] Common 12:32:00 12:32:[address] [facility] 2018-06-01 2018-06-01 [facility] [id number] Common 10:15:00 10:15:[address] [facility] 2018-03-02 2018-03-02 [facility] [id number] Common 09:00:00 09:00:[address] [facility] 2018-01-30 2018-01-30 [facility] [id number] Common 11:30:00 11:30:[address] [facility] 2018-01-20 2018-01-20 [facility] [id number] Common 09:46:00 09:46:[address] [facility] 2018-01-13 2018-01-13 [facility] [id number] Common 10:00:00 10:00:00 [facility] 2017-12-25 2017-12-25 [facility] [id number] Common 10:56:00 10:56:[address] [facility] 2017-12-09 2017-12-09 [facility] [id number] Common 21:03:00 21:03:[address] [facility] 2017-12-09 2017-12-09 [facility] [id number] Common 09:45:00 09:45:[address] [facility] 2017-12-03 2017-12-03 [facility] 14 [id number] Common 10:45:00 10:45:[address] [facility] 2017-09-05 2017-09-05 Outpatient Tiffanie Morenot 13 [id number] Common 16:00:00 16:00:00 t [facility] 2017-07-11 2017-07-11 Outpatient Yahaira ROBLEDO, [facility] [id number] 17:58:00 17:58:00 [facility] 2015-08-10 2015-08-10 Outpatient SOURAV ROBLEDO [facility] [id number] 17:02:00 17:02:00 [facility] [id number] [facility] 2015-04-20 2015-04-21 Outpatient SOURAV ROBLEDO [facility] [id number] 05:46:00 13:55:00 [facility] [id number] [facility] 2015-04-03 2015-04-03 Outpatient SOURAV ROBLEDO [facility] [id number] 09:00:00 09:00:00 [facility] [id number] [facility] 2014-12-12 2014-12-12 Outpatient SOURAV ROBLEDO [facility] [id number] 10:22:00 10:22:00 [facility] [id number] [facility] 2014-11-23 2014-11-23 Outpatient SOURAV ROBLEDO [facility] [id number] 16:15:00 16:15:00 [facility] [id number] [facility] 2014-08-09 2014-08-09 Outpatient SOURAV ROBLEDO [facility] [id number] 12:50:00 12:50:00 [facility] [id number] [facility] Results Test Description Test Time Test Comments Results Result Comments Source POCT GLUCOSE (AUTOMATED) 2023-03-28 18:22:00 Test Item Value Reference Range Interpretation Comme nts POCT GLU (test code = 0116185528) 148 mg/dL 70-110 H Lab Interpretation (test code = 39524-6) Abnormal [facility] (CA 19-9)2023-03-28 17:32:04 Test Item Value Reference Range Interpretation Comments CA 19-9 (test code = 9.7 U/mL 0.0-35.0 4124637941) CHENCHO (test code = CHENCHO) Biotin has been reported to cause a negative bias, interpret results relative to patient's use of biotin. Lab Interpretation (test Normal code = 63729-0) [facility]ALPHA [id number] 16:42:27 Test Item Value Reference Range Interpretation Comments AFP (test code = 4.0 ng/mL <=7.5 5007760874) CHENCHO (test code = CHENCHO) Biotin has been reported to cause a negative bias, interpret results relative to patient's use of biotin. Lab Interpretation (test Normal code = 16414-7) [facility])2023-03-28 14:34:35 Test Item Value Reference Range Interpretation Comments POCT GLU (test code = 4970594660) 104 mg/dL 70-110 Lab Interpretation (test code = Normal 00542-3) [facility] METABOLIC PANEL (NA, K, CL, CO2, GLUCOSE, BUN, CREATININE, CA)2023-03-28 11:05:11 Test Item Value Reference Range Interpretation Comments NA (test code = 137 mmol/L 135-145 3543724803) K (test code = 3.4 mmol/L 3.5-5.0 L 4313796019) CL (test code = 106 mmol/L 98-108 5694933535) CO2 TOTAL (test code = 27 mmol/L 23-31 8391216446) AGAP (test code = 4 2-16 3637502095) BUN (test code = 12 mg/dL 7-23 4352365512) GLUCOSE (test code = 108 mg/dL 70-110 4063488973) CREATININE (test code = 0.50 mg/dL 0.50-1.04 8923876526) CALCIUM (test code = 8.2 mg/dL 8.6-10.6 L 1471643886) eGFR (test code = 106.9 mL/min/1.73m2 CKD-EPI e GFR 44784-3) (2020). Assumin g creatinine has been stable day-to-d ay for at least ree months, the eGF R indicates Categ ory G1 (>= 90 mL/min/1.73 m2) Lab Interpretation (test Abnormal code = 99293-3) [facility]2023-11-10 11:05:11 Test Item Value Reference Range Interpretation Comments MAGNESIUM (test code = 6806998819) 2.1 mg/dL 1.7-2.4 Lab Interpretation (test code = Normal 50746-4) [facility]aPTT (for use with Heparin Infusion)2023-03-28 10:09:48 Test Item Value Reference Range Interpretation Comments APTT Patient (test code 45 See_Comment H [Au tomated message] = 0463-2) The system [employer] generated this result transmitted ref erence range: 26 - 36 Seconds. The reference range was not used to int erpret this result as normal/abnormal . Lab Interpretation (test Abnormal code = 52346-0) [facility] GLUCOSE (AUTOMATED)2023-03-28 02:54:07 Test Item Value Reference Range Interpretation Comments POCT GLU (test code = 1785819978) 98 mg/dL 70-110 Lab Interpretation (test code = Normal 76473-8) [facility] GLUCOSE (AUTOMATED)2023-03-27 23:35:10 Test Item Value Reference Range Interpretation Comments POCT GLU (test code = 9424305524) 99 mg/dL 70-110 Lab Interpretation (test code = Normal 23224-7) [facility] (TTE)2023-03-27 23:07:34 Test Item Value Reference Range Interpretation Comments Height (test code = 61 in 6186393550) Weight (test code = 246 lbs 0625116124) Systolic BP (test code 120 mmHg = 7589928192) Diastolic BP (test code 68 mmHg = 7295689769) Heart Rate (test code = 65 bpm 3310958715) LVOT stroke volume 50.00 cm3 (test code = 4439206120) EF(Teich) (test code = 29.30 % 7815577320) LVIDD (test code = 6.90 cm 2090306201) LVIDS (test code = 5.90 cm 4329820598) Left Ventricular End 172.8 mL Systolic Volume by Teichholz Method (test code = 6316656) Left Ventricular End 244.3 mL Diastolic Volume by Teichholz Method (test code = 9278309) IVS (test code = 1.10 cm 1940313433) LVPWD (test code = 1.15 cm 7889543564) LVOT diameter (test 2.09 cm code = 0341878751) LVOT area (test code = 3.40 cm2 9026208332) FS (test code = 14 % 7944537492) MV Peak E Izabella (test 47.1 cm/s code = 2973858339) MV Peak A Izabella (test 39.5 cm/s code = 4676835592) E/A ratio (test code = 1.19 ratio 1043917305) E wave decelartion time 0.14 s (test code = 0345090569) LA Volume Index (BP) 57.0 mL/m2 (test code = 0524132744) LA volume (BP) (test 117.5 mL code = 8002250045) LVOT peak izabella (test 72.4 cm/s code = 4947334140) LVOT mn grad (test code 1.0 mmHg = 9053897197) Left Ventricular 3.6 L/min Cardiac Output (test code = 6367824) BSA (test code = 2.06 m2 6593992569) LA size (test code = 5.3 cm 8297871016) LAV(MOD-sp2) (test code 110.20 mL = 9532670983) LAV(MOD-sp4) (test code 124.60 mL = 0493347783) Tapse (test code = 2.39 cm 1329903622) AV LVOT peak gradient 2.10 mmHg (test code = 1190525912) LVOT peak VTI (test 14.6 cm code = 1503710482) Aortic HR (test code = 71.20 BPM 8790714165) LV V1 mean (test code = 46.20 cm/s 0668404028) MV Prop V (test code = 31.90 cm/s 5681413299) TR Peak Izabella (test code 285.7 cm/s = 8001057968) Triscuspid Valve 32.7 mmHg Regurgitation Peak Gradient (test code = 0189831165) Ao root diam (test code 3.60 cm = 6780043053) Aortic root (test code 3.6 cm = 8666816138) Ao root annulus (test 3.6 cm code = 0903210323) PW (test code = 1.15 cm 0.6-1.3 1050211188) EF - 2D (test code = 29.30 % 57366957) Interventricular Septum 1.10 cm Diastolic Thickness by 2D (test code = 6031239) A4C EF (test code = 12.00 % 7752668511) EF(sp4-el) (test code = 15.30 % 0351180742) SV(MOD-sp4) (test code 26.80 mL = 5480946697) SV(sp4-el) (test code = 35.10 mL 2102001735) LV Diastolic Volume 202.5 mL (BP) (test code = 6827950412) A2C EF (test code = 21.60 % 3124384927) EF(MOD-bp) (test code = 20.80 % 6070165177) EF(sp2-el) (test code = 22.90 % 2670937148) LV Systolic Volume (BP) 160.3 mL (test code = 0669930590) SV(MOD-bp) (test code = 42.20 mL 0254120332) SV(MOD-sp2) (test code 37.10 mL = 3293103095) EF (test code = 21 9728600638) Left Ventricular Stroke 42.2 mL Volume by 2-D Biplane-MOD (test code = 6275547) LV Diastolic Volume 98.3 mL/m2 Index (BP) (test code = 6101634544) LV Systolic Volume 77.8 mL/m2 Index (BP) (test code = 2298936290) Radiology Study observation (narrative) (test code = 47940-4) CHENCHO (test code = CHENCHO) ?Left?Ventricle: Left ventricle is moderately dilated. Mildly increased wall thickness. Mild septal thickening. Severely increased ventricular mass. There is eccentric hypertrophy. LVMI 182 g/m2. LVEDVI 98 ml/m2. Severe global hypokinesis present. Severely reduced systolic function with a visually estimated EF of 20 - 25%. EF by 2D Frank biplane is 21%. There is grade 2 diastolic dysfunction. Elevated left ventricular filling pressure. ?Left?Atrium: Left atrium is severely dilated. ?Tricuspid?Valve: Mild transvalvular regurgitation. Right ventricular systolic pressure is 35-40 mmHg. ?RA pressure is 0-5 mmHg. ?Right?Ventricle: Right ventricle size is normal. Normal systolic function. There is a pacemaker lead in the right ventricle. ?Aorta: Normal sized aortic root. ?IVC/SVC: IVC normal in size and respiratory variation. Left VentricleLeft ventricle is moderately dilated. Mildly increased wall thickness. Mild septal thickening. Severely increased ventricular mass. There is eccentric hypertrophy. LVMI 182 g/m2. LVEDVI 98 ml/m2. Severe global hypokinesis present. Severely reduced systolic function with a visually estimated EF of 20 - 25%. EF by 2D Frank biplane is 21%. There is grade 2 diastolic dysfunction. Elevated left ventricular filling pressure.Right VentricleRight ventricle size is normal. Normal systolic function. There is a pacemaker lead in the right ventricle.Left AtriumLeft atrium is severely dilated.Right AtriumRight atrium size is normal.IVC/SVCIVC normal in size and respiratory variation.Mitral ValveModerately thickened leaflets. Mildly calcified leaflets. Trace transvalvular regurgitation. No stenosis.Tricuspid ValveTricuspid valve structure is normal. Mild transvalvular regurgitation. Right ventricular systolic pressure is 35-40 mmHg. RA pressure is 0-5 mmHg.Aortic ValveAortic valve structure is normal. No transvalvular regurgitation. No hemodynamically significant .Pulmonic ValveNot well visualized. No transvalvular regurgitation.Ascendin g AortaNormal sized aortic root.PericardiumThe pericardium is normal. No pericardial effusion.Study DetailsStudy quality was adequate. A complete echocardiogram was performed using 2D, color flow Doppler and spectral Doppler. 5 mL of Lumason ultrasound enhancing agent used. [facility] GLU[facility]SE (AUTOMATED)2023-03-27 19:42:10 Test Item Value Reference Range Interpretation Comments POCT GLU (test code = 1109162096) 102 mg/dL 70-110 Lab Interpretation (test code = Normal 05897-9) [facility] ParkwayLactic Acid Whole Ttvbt0575-07-19 15:56:37 Test Item Value Reference Range Interpretation Comments LACTIC ACID (test code = 1.28 mmol/L 0.50-2.20 2225474099) Lab Interpretation (test code = Normal 20249-4) [facility]wayEXTERNAL FIT [id number] 10:34:00 Test Item Value Reference Range Interpretation Comments CHENCHO (test code = CHENCHO) Test Result Negative Negative ? 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 05/30/2022 [facility] ([id number])? [address] [place] [address] [address]? [place] [address]? Aissatou Tapia NP? [address] [facility]? [place] [address]? ? Colon cancer screening (Primary Dx) NEGATIVE TEST RESULT. A negative Cologuard result indicates a low likelihood that a colorectal cancer (CRC) or advanced adenoma (adenomatous polyps with more advanced pre-malignant features) ?is present. The chance that a person with a negative Cologuard test has a colorectal cancer is less than 1 in 1500 (negative predictive value >99.9%) or has an ?advanced adenoma is less than ?5.3% (negative predictive value 94.7%). These data are based on a prospective cross-sectional study of 10,000 individuals at average risk for colorectal cancer who were screened with both Cologuard and colonoscopy. (Tito Beasley al, N Engl J Med 2014;370(14):2870-1932) The normal value (reference range) for this assay is negative. COLOGUARD RE-SCREENING RECOMMENDATION: Periodic colorectal cancer screening is an important part of preventive healthcare for asymptomatic individuals at average risk for colorectal cancer. ?Following a negative Cologuard result, the [place] [employer] and U.S. Multi-Society Task Force screening guidelines recommend a Cologuard re-screening interval of 3 years. References: [place] [employer] Guideline for Colorectal Cancer Screening: https://www.cancer.org/ cancer/adgpl-ahvevx-vrz cer/detection-diagnosis -staging/acs-recommenda tions.html.; Curtis DK, Enzo CR, Trisha GarciaK, Colorectal Cancer Screening: Recommendations for Physicians and Patients from the U.S. Multi-Society Task Force on Colorectal Cancer Screening , Am J Gastroenterology 2017; 112:4046-3219. Lab Interpretation Normal (test code = 43716-3) [facility] ([address]403)(NA, K, CL, CO2, GLUCOSE, BUN, CREATININE, CA)2021-11-28 17:43:49 Test Item Value Reference Range Interpretation Comments NA (test code = 141 mmol/L 135-145 4858413648) K (test code = 3.6 mmol/L 3.5-5 7130987207) CL (test code = 104 mmol/L 98-108 3775220649) CO2 TOTAL (test code = 28 mmol/L 23-31 1172557303) AGAP (test code = 2-16 4378682022) BUN (test code = 15 mg/dL 7-23 7057667426) GLUCOSE (test code = 238 mg/dL 70-110 H 8310623653) CREATININE (test code = 0.52 mg/dL 0.5-1.04 3311243335) CALCIUM (test code = 8.6 mg/dL 8.6-10.6 3455168270) eGFR (test code = mL/min/1.73m2 8321594323) CHENCHO (test code = CHENCHO) Association of [...] tests). Lab Interpretation Abnormal (test code = 30927-5) [facility] ParkwayN-TERMINAL KIY-[id number] 17:36:04 Test Item Value Reference Range Interpretation Comments NT-proBNP (test code 977 pg/mL See_Comment H [Autom ated = 2496346508) message] The system which generated this result transmitted reference range : <=125. The reference range was not used to interpret this result as normal/abnormal . CHENCHO (test code = CHENCHO) Biotin has been reported to cause a negative bias, interpret results relative to patient's use of biotin. Lab Interpretation Abnormal (test code = 92625-2) [facility]wayMAG[facility]IUM2022-07-13 17:29:44 Test Item Value Reference Range Interpretation Comments MAGNESIUM (test code = 8301935296) 1.8 mg/dL 1.7-2.4 Lab Interpretation (test code = Normal 99690-9) [facility]wayHEMOGLOBIN [id number] 00:00:00 Test Item Value Reference Range Interpretation Comments A1C (test code = 4548-4) 6.3 HEMOGLOBIN [id number] 00:00:00 Test Item Value Reference Range Interpretation Comments A1C (test code = 4548-4) 6.3 [id number] 12:55:00 Test Item Value Reference Range Interpretation Comments Monocytes (test code = Monocytes) 7.3 [facility]villeAdctecnVURLEEQSKM9366-84-16 12:55:00 Test Item Value Reference Range Interpretation Comments Eosinophils (test code = Eosinophils) 1.5 [facility]bf[facility]ikBUHNTYHSSP8560-41-99 12:55:00 Test Item Value Reference Range Interpretation Comments Basophils (test code = Basophils) 0.6 [facility] HospitalClprufuJVGHJUCQOE4701-51-03 12:55:00 Test Item Value Reference Range Interpretation Comments Sed Rate (test code = Sed Rate) 22 [facility] StephenvilleBpgtvysUMSVPHHTXB6728-12-32 12:55:00 Test Item Value Reference Range Interpretation Comments C-REACTIVE PROTEIN (test code = 2.9 C-REACTIVE PROTEIN) [facility]2021-10-07 12:55:00 Test Item Value Reference Range Interpretation Comments ALANINE AMINOTRANSFERASE (test code = 23 6-29 ALANINE AMINOTRANSFERASE) [facility] [id number] 12:55:00 Test Item Value Reference Range Interpretation Comments Vitamin B12 Lvl (test code = Vitamin 931 023-1978 B12 Lvl) [facility]2021-10-07 12:55:00 Test Item Value Reference Range Interpretation Comments Glucose Lvl (test code = Glucose Lvl) 151 65-99 [facility]2021-10-07 12:55:00 Test Item Value Reference Range Interpretation Comments BUN (test code = BUN) 17 7-25 [facility] HospitalIalyadjPNNIVHWTAM9745-73-36 12:55:00 Test Item Value Reference Range Interpretation Comments WBC X 10x3 (test code = WBC X 10x3) 4.8 3.8-10.8 [facility]2021-10-07 12:55:00 Test Item Value Reference Range Interpretation Comments Creatinine Lvl (test code = Creatinine 0.49 0.50-1.05 Lvl) [facility]2021-10-07 12:55:00 Test Item Value Reference Range Interpretation Comments eGFR NON-AFR. BARBADIAN (test code = 107 eGFR NON-AFR. BARBADIAN) [facility]2021-10-07 12:55:00 Test Item Value Reference Range Interpretation Comments eGFR (test code = eGFR 124 ) [facility]2021-10-07 12:55:00 Test Item Value Reference Range Interpretation Comments B/C Ratio (test code = B/C Ratio) 35 6-22 [place] 852421-10-07 12:55:00 Test Item Value Reference Range Interpretation Comments Sodium Lvl (test code = Sodium Lvl) 140 135-146 [place] 852421-10-07 12:55:00 Test Item Value Reference Range Interpretation Comments Potassium Lvl (test code = Potassium 4.0 3.5-5.3 Lvl) [facility]2021-10-07 12:55:00 Test Item Value Reference Range Interpretation Comments Chloride Lvl (test code = Chloride Lvl) 105 98-110 [facility]2021-10-07 12:55:00 Test Item Value Reference Range Interpretation Comments CO2 (test code = CO2) 29 20-32 [facility]2021-10-07 12:55:00 Test Item Value Reference Range Interpretation Comments Calcium Lvl (test code = Calcium Lvl) 8.7 8.6-10.4 [facility]2021-10-07 12:55:00 Test Item Value Reference Range Interpretation Comments Total Protein (test code = Total 6.8 6.1-8.1 Protein) [facility] StephenvilleIofulquQRSGHVEJNG3050-15-73 12:55:00 Test Item Value Reference Range Interpretation Comments RBC X 10x6 (test code = RBC X 10x6) 4.50 3.80-5.10 [place] 852421-10-07 12:55:00 Test Item Value Reference Range Interpretation Comments Albumin Lvl (test code = Albumin Lvl) 3.7 3.6-5.1 [place] 852421-10-07 12:55:00 Test Item Value Reference Range Interpretation Comments Globulin (test code = Globulin) 3.1 1.9-3.7 [place] 852421-10-07 12:55:00 Test Item Value Reference Range Interpretation Comments A/G Ratio (test code = A/G Ratio) 1.2 1.0-2.5 [place] 852421-10-07 12:55:00 Test Item Value Reference Range Interpretation Comments Bili Total (test code = Bili Total) 0.6 0.2-1.2 [place] 852421-10-07 12:55:00 Test Item Value Reference Range Interpretation Comments Alk Phos (test code = Alk Phos) 59 37-153 [place] 852421-10-07 12:55:00 Test Item Value Reference Range Interpretation Comments ASPARTATE TRANSAMINASE (test code = 18 10-35 ASPARTATE TRANSAMINASE) [place] 852421-10-07 12:55:00 Test Item Value Reference Range Interpretation Comments ALANINE AMINOTRANSFERASE (test code = 23 6-29 ALANINE AMINOTRANSFERASE) [place] 870041-10-07 12:55:00 Test Item Value Reference Range Interpretation Comments WBC X 10x3 (test code = WBC X 10x3) 4.8 3.8-10.8 [place] 870041-10-07 12:55:00 Test Item Value Reference Range Interpretation Comments RBC X 10x6 (test code = RBC X 10x6) 4.50 3.80-5.10 [place] 870041-10-07 12:55:00 Test Item Value Reference Range Interpretation Comments Hgb (test code = Hgb) 12.1 11.7-15.5 [place] 870041-10-07 12:55:00 Test Item Value Reference Range Interpretation Comments Hgb (test code = Hgb) 12.1 11.7-15.5 [place] 870041-10-07 12:55:00 Test Item Value Reference Range Interpretation Comments Hct (test code = Hct) 37.8 35.0-45.0 [place] [address]-10-07 12:55:00 Test Item Value Reference Range Interpretation Comments MCV (test code = MCV) 84.0 80.0-100.0 [place] 870041-10-07 12:55:00 Test Item Value Reference Range Interpretation Comments MCH (test code = MCH) 26.9 pg 27.0-33.0 [place] 870041-10-07 12:55:00 Test Item Value Reference Range Interpretation Comments MCHC (test code = MCHC) 32.0 32.0-36.0 [place] 870041-10-07 12:55:00 Test Item Value Reference Range Interpretation Comments RDW (test code = RDW) 14.0 11.0-15.0 [place] 870041-10-07 12:55:00 Test Item Value Reference Range Interpretation Comments Platelet (test code = Platelet) 151 140-400 [place] 870041-10-07 12:55:00 Test Item Value Reference Range Interpretation Comments MPV (test code = MPV) 12.1 7.5-12.5 [place] 870041-10-07 12:55:00 Test Item Value Reference Range Interpretation Comments Neutrophils # (test code = Neutrophils 3139 6483-1989 #) [place] 870041-10-07 12:55:00 Test Item Value Reference Range Interpretation Comments Lymphocytes # (test code = Lymphocytes 7449 006-8370 #) [facility]JXBULCBFX6888-38-34 12:55:00 Test Item Value Reference Range Interpretation Comments Monocytes # (test code = Monocytes #) 350 200-950 [facility]VmylbbtXZZRTSPMVX8627-60-46 12:55:00 Test Item Value Reference Range Interpretation Comments Hct (test code = Hct) 37.8 35.0-45.0 [facility]VamqhldZYWWZEHSVJ1004-83-90 12:55:00 Test Item Value Reference Range Interpretation Comments Eosinophils # (test code = Eosinophils 72 15-500 #) [facility] HospitalRcbmzxoORQTWKMYKT5558-23-47 12:55:00 Test Item Value Reference Range Interpretation Comments Basophils # (test code 29 See_Comment [Aut omated message] The = Basophils #) system which generated this result tra nsmitted reference range : <=200. The reference r brice was not used to int erpret this result as normal/abnormal . [facility] HospitalYnrqzlaMZWGNEHQTS3756-93-81 12:55:00 Test Item Value Reference Range Interpretation Comments Segs (test code = Segs) 65.4 [place] 870041-10-07 12:55:00 Test Item Value Reference Range Interpretation Comments Lymphocytes (test code = Lymphocytes) 25.2 [place] 870041-10-07 12:55:00 Test Item Value Reference Range Interpretation Comments Monocytes (test code = Monocytes) 7.3 [facility] HospitalXmyodnrSBGEIHUBVA7866-66-59 12:55:00 Test Item Value Reference Range Interpretation Comments Eosinophils (test code = Eosinophils) 1.5 [place] 870041-10-07 12:55:00 Test Item Value Reference Range Interpretation Comments Basophils (test code = Basophils) 0.6 [place] 870041-10-07 12:55:00 Test Item Value Reference Range Interpretation Comments Sed Rate (test code = Sed Rate) 22 [facility]udBRQZSBSOFC9135-23-13 12:55:00 Test Item Value Reference Range Interpretation Comments C-REACTIVE PROTEIN (test code = 2.9 C-REACTIVE PROTEIN) [place] 870041-10-07 12:55:00 Test Item Value Reference Range Interpretation Comments MCV (test code = MCV) 84.0 80.0-100.0 [facility]2021-10-07 12:55:00 Test Item Value Reference Range Interpretation Comments Vitamin B12 Lvl (test code = Vitamin 109 774-1758 B12 Lvl) [facility]2021-10-07 12:55:00 Test Item Value Reference Range Interpretation Comments Glucose Lvl (test code = Glucose Lvl) 151 65-99 [facility]2021-10-07 12:55:00 Test Item Value Reference Range Interpretation Comments BUN (test code = BUN) 17 7-25 [facility] HospitalHnjvlolEOEWKGOAUF8650-28-12 12:55:00 Test Item Value Reference Range Interpretation Comments MCH (test code = MCH) 26.9 pg 27.0-33.0 [facility]2021-10-07 12:55:00 Test Item Value Reference Range Interpretation Comments Creatinine Lvl (test code = Creatinine 0.49 0.50-1.05 Lvl) [facility]2021-10-07 12:55:00 Test Item Value Reference Range Interpretation Comments eGFR NON-AFR. BARBADIAN (test code = 107 eGFR NON-AFR. BARBADIAN) [facility]2021-10-07 12:55:00 Test Item Value Reference Range Interpretation Comments eGFR (test code = eGFR 124 ) [facility]2021-10-07 12:55:00 Test Item Value Reference Range Interpretation Comments B/C Ratio (test code = B/C Ratio) 35 6-22 [facility]2021-10-07 12:55:00 Test Item Value Reference Range Interpretation Comments Sodium Lvl (test code = Sodium Lvl) 140 135-146 [facility]2021-10-07 12:55:00 Test Item Value Reference Range Interpretation Comments Potassium Lvl (test code = Potassium 4.0 3.5-5.3 Lvl) [facility]2021-10-07 12:55:00 Test Item Value Reference Range Interpretation Comments Chloride Lvl (test code = Chloride Lvl) 105 98-110 [facility]2021-10-07 12:55:00 Test Item Value Reference Range Interpretation Comments CO2 (test code = CO2) 29 20-32 [facility]2021-10-07 12:55:00 Test Item Value Reference Range Interpretation Comments Calcium Lvl (test code = Calcium Lvl) 8.7 8.6-10.4 [facility]2021-10-07 12:55:00 Test Item Value Reference Range Interpretation Comments Total Protein (test code = Total 6.8 6.1-8.1 Protein) [facility] 12:55:00 Test Item Value Reference Range Interpretation Comments MCHC (test code = MCHC) 32.0 32.0-36.0 [facility]2021-10-07 12:55:00 Test Item Value Reference Range Interpretation Comments Albumin Lvl (test code = Albumin Lvl) 3.7 3.6-5.1 [facility]2021-10-07 12:55:00 Test Item Value Reference Range Interpretation Comments Globulin (test code = Globulin) 3.1 1.9-3.7 [facility]2021-10-07 12:55:00 Test Item Value Reference Range Interpretation Comments A/G Ratio (test code = A/G Ratio) 1.2 1.0-2.5 [facility]2021-10-07 12:55:00 Test Item Value Reference Range Interpretation Comments Bili Total (test code = Bili Total) 0.6 0.2-1.2 [facility]2021-10-07 12:55:00 Test Item Value Reference Range Interpretation Comments Alk Phos (test code = Alk Phos) 59 37-153 [place] 852421-10-07 12:55:00 Test Item Value Reference Range Interpretation Comments ASPARTATE TRANSAMINASE (test code = 18 10-35 ASPARTATE TRANSAMINASE) [facility]2021-10-07 12:55:00 Test Item Value Reference Range Interpretation Comments ALANINE AMINOTRANSFERASE (test code = 23 6-29 ALANINE AMINOTRANSFERASE) [place] [address]-10-07 12:55:00 Test Item Value Reference Range Interpretation Comments WBC X 10x3 (test code = WBC X 10x3) 4.8 3.8-10.8 [place] 870041-10-07 12:55:00 Test Item Value Reference Range Interpretation Comments RBC X 10x6 (test code = RBC X 10x6) 4.50 3.80-5.10 [place] [address]-10-07 12:55:00 Test Item Value Reference Range Interpretation Comments Hgb (test code = Hgb) 12.1 11.7-15.5 [place] [address]-10-07 12:55:00 Test Item Value Reference Range Interpretation Comments RDW (test code = RDW) 14.0 11.0-15.0 [place] 870041-10-07 12:55:00 Test Item Value Reference Range Interpretation Comments Hct (test code = Hct) 37.8 35.0-45.0 [place] 870041-10-07 12:55:00 Test Item Value Reference Range Interpretation Comments MCV (test code = MCV) 84.0 80.0-100.0 [place] [address]-10-07 12:55:00 Test Item Value Reference Range Interpretation Comments MCH (test code = MCH) 26.9 pg 27.0-33.0 [place] 870041-10-07 12:55:00 Test Item Value Reference Range Interpretation Comments MCHC (test code = MCHC) 32.0 32.0-36.0 [place] [address]-10-07 12:55:00 Test Item Value Reference Range Interpretation Comments RDW (test code = RDW) 14.0 11.0-15.0 [place] [address]-10-07 12:55:00 Test Item Value Reference Range Interpretation Comments Platelet (test code = Platelet) 151 140-400 [place] 870041-10-07 12:55:00 Test Item Value Reference Range Interpretation Comments MPV (test code = MPV) 12.1 7.5-12.5 [facility] HospitalLqsmwlvZHMUILGBLO6874-39-05 12:55:00 Test Item Value Reference Range Interpretation Comments Neutrophils # (test code = Neutrophils 3139 2927-1285 #) [facility] HospitalRdhrrjyBWDYKICNKV3681-67-60 12:55:00 Test Item Value Reference Range Interpretation Comments Lymphocytes # (test code = Lymphocytes [phone] #) [facility] HospitalDhqhfsqCBIQXLJHPL5163-88-82 12:55:00 Test Item Value Reference Range Interpretation Comments Monocytes # (test code = Monocytes #) 350 200-950 [facility] HospitalGysewqlGDLPAZTWWI3066-57-69 12:55:00 Test Item Value Reference Range Interpretation Comments Platelet (test code = Platelet) 151 140-400 [facility] HospitalQyljvjySCJNSAWQCM3674-80-45 12:55:00 Test Item Value Reference Range Interpretation Comments Eosinophils # (test code = Eosinophils 72 15-500 #) [facility] HospitalVkzuhmzXXSUKYNRAS2413-25-75 12:55:00 Test Item Value Reference Range Interpretation Comments Basophils # (test code 29 See_Comment [Aut omated message] The = Basophils #) system which generated this result tra nsmitted reference range : <=200. The reference r brice was not used to int erpret this result as normal/abnormal . [facility] HospitalJdkzzfpIIVIZPSKBS3955-45-56 12:55:00 Test Item Value Reference Range Interpretation Comments Segs (test code = Segs) 65.4 [facility] HospitalLrkheqhCNZVFQFDVA7445-02-41 12:55:00 Test Item Value Reference Range Interpretation Comments Lymphocytes (test code = Lymphocytes) 25.2 [facility] HospitalQfqysowFDDNZCWJEN0512-12-95 12:55:00 Test Item Value Reference Range Interpretation Comments Monocytes (test code = Monocytes) 7.3 [facility] HospitalVzqeqbnKGQHKOLVEW9908-30-51 12:55:00 Test Item Value Reference Range Interpretation Comments Eosinophils (test code = Eosinophils) 1.5 [facility] HospitalBmkfgtmVGDBHKUNOK1833-10-28 12:55:00 Test Item Value Reference Range Interpretation Comments Basophils (test code = Basophils) 0.6 [facility] HospitalSztxnmyJKRTCDKZGB1861-15-37 12:55:00 Test Item Value Reference Range Interpretation Comments Sed Rate (test code = Sed Rate) 22 [facility]IS[facility]IX[facility]RKY8466[facility]-53 12:55:00 Test Item Value Reference Range Interpretation Comments C-REACTIVE PROTEIN (test code = 2.9 C-REACTIVE PROTEIN) [place] 852421-10-07 12:55:00 Test Item Value Reference Range Interpretation Comments Creatinine Lvl (test code = Creatinine 0.49 0.50-1.05 Lvl) [place] 870041-10-07 12:55:00 Test Item Value Reference Range Interpretation Comments MPV (test code = MPV) 12.1 7.5-12.5 [facility]2021-10-07 12:55:00 Test Item Value Reference Range Interpretation Comments Vitamin B12 Lvl (test code = Vitamin 340 860-2286 B12 Lvl) [place] 852421-10-07 12:55:00 Test Item Value Reference Range Interpretation Comments Glucose Lvl (test code = Glucose Lvl) 151 65-99 [place] 852421-10-07 12:55:00 Test Item Value Reference Range Interpretation Comments BUN (test code = BUN) 17 7-25 [place] [address]-10-07 12:55:00 Test Item Value Reference Range Interpretation Comments Neutrophils # (test code = Neutrophils 3139 2471-8975 #) [facility]2021-10-07 12:55:00 Test Item Value Reference Range Interpretation Comments Creatinine Lvl (test code = Creatinine 0.49 0.50-1.05 Lvl) [facility]2021-10-07 12:55:00 Test Item Value Reference Range Interpretation Comments Creatinine Lvl (test code = Creatinine 0.49 0.50-1.05 Lvl) [place] 852421-10-07 12:55:00 Test Item Value Reference Range Interpretation Comments eGFR NON-AFR. BARBADIAN (test code = 107 eGFR NON-AFR. BARBADIAN) [place] 852421-10-07 12:55:00 Test Item Value Reference Range Interpretation Comments eGFR (test code = eGFR 124 ) [place] 852421-10-07 12:55:00 Test Item Value Reference Range Interpretation Comments B/C Ratio (test code = B/C Ratio) 35 6-22 [place] 852421-10-07 12:55:00 Test Item Value Reference Range Interpretation Comments Sodium Lvl (test code = Sodium Lvl) 140 135-146 [facility]2021-10-07 12:55:00 Test Item Value Reference Range Interpretation Comments Potassium Lvl (test code = Potassium 4.0 3.5-5.3 Lvl) [facility]2021-10-07 12:55:00 Test Item Value Reference Range Interpretation Comments eGFR NON-AFR. BARBADIAN (test code = 107 eGFR NON-AFR. BARBADIAN) [facility]2021-10-07 12:55:00 Test Item Value Reference Range Interpretation Comments Chloride Lvl (test code = Chloride Lvl) 105 98-110 [place] 852421-10-07 12:55:00 Test Item Value Reference Range Interpretation Comments CO2 (test code = CO2) 29 20-32 [facility]2021-10-07 12:55:00 Test Item Value Reference Range Interpretation Comments Calcium Lvl (test code = Calcium Lvl) 8.7 8.6-10.4 [facility]2021-10-07 12:55:00 Test Item Value Reference Range Interpretation Comments Total Protein (test code = Total 6.8 6.1-8.1 Protein) [facility] HospitalRzqzvfdVHAYYSZJTY3522-28-42 12:55:00 Test Item Value Reference Range Interpretation Comments Lymphocytes # (test code = Lymphocytes [phone] #) [facility]2021-10-07 12:55:00 Test Item Value Reference Range Interpretation Comments eGFR (test code = eGFR 124 ) [facility]2021-10-07 12:55:00 Test Item Value Reference Range Interpretation Comments Albumin Lvl (test code = Albumin Lvl) 3.7 3.6-5.1 [facility]2021-10-07 12:55:00 Test Item Value Reference Range Interpretation Comments Globulin (test code = Globulin) 3.1 1.9-3.7 [facility]2021-10-07 12:55:00 Test Item Value Reference Range Interpretation Comments A/G Ratio (test code = A/G Ratio) 1.2 1.0-2.5 [facility]2021-10-07 12:55:00 Test Item Value Reference Range Interpretation Comments Bili Total (test code = Bili Total) 0.6 0.2-1.2 [place] 852421-10-07 12:55:00 Test Item Value Reference Range Interpretation Comments Alk Phos (test code = Alk Phos) 59 37-153 [place] 852421-10-07 12:55:00 Test Item Value Reference Range Interpretation Comments B/C Ratio (test code = B/C Ratio) 35 6-22 [place] 852421-10-07 12:55:00 Test Item Value Reference Range Interpretation Comments ASPARTATE TRANSAMINASE (test code = 18 10-35 ASPARTATE TRANSAMINASE) [place] 852421-10-07 12:55:00 Test Item Value Reference Range Interpretation Comments ALANINE AMINOTRANSFERASE (test code = 23 6-29 ALANINE AMINOTRANSFERASE) [place] [address]-10-07 12:55:00 Test Item Value Reference Range Interpretation Comments WBC X 10x3 (test code = WBC X 10x3) 4.8 3.8-10.8 [place] [address]-10-07 12:55:00 Test Item Value Reference Range Interpretation Comments RBC X 10x6 (test code = RBC X 10x6) 4.50 3.80-5.10 [place] [address]-10-07 12:55:00 Test Item Value Reference Range Interpretation Comments Hgb (test code = Hgb) 12.1 11.7-15.5 [place] 852421-10-07 12:55:00 Test Item Value Reference Range Interpretation Comments Sodium Lvl (test code = Sodium Lvl) 140 135-146 [place] 870041-10-07 12:55:00 Test Item Value Reference Range Interpretation Comments Monocytes # (test code = Monocytes #) 350 200-950 [place] [address]-10-07 12:55:00 Test Item Value Reference Range Interpretation Comments Hct (test code = Hct) 37.8 35.0-45.0 [place] [address]-10-07 12:55:00 Test Item Value Reference Range Interpretation Comments MCV (test code = MCV) 84.0 80.0-100.0 [place] [address]-10-07 12:55:00 Test Item Value Reference Range Interpretation Comments MCH (test code = MCH) 26.9 pg 27.0-33.0 [place] 870041-10-07 12:55:00 Test Item Value Reference Range Interpretation Comments MCHC (test code = MCHC) 32.0 32.0-36.0 [facility]2021-10-07 12:55:00 Test Item Value Reference Range Interpretation Comments Potassium Lvl (test code = Potassium 4.0 3.5-5.3 Lvl) [place] 870041-10-07 12:55:00 Test Item Value Reference Range Interpretation Comments RDW (test code = RDW) 14.0 11.0-15.0 [place] 870041-10-07 12:55:00 Test Item Value Reference Range Interpretation Comments Platelet (test code = Platelet) 151 140-400 [place] 870041-10-07 12:55:00 Test Item Value Reference Range Interpretation Comments MPV (test code = MPV) 12.1 7.5-12.5 [place] 870041-10-07 12:55:00 Test Item Value Reference Range Interpretation Comments Neutrophils # (test code = Neutrophils 3139 8662-2791 #) [facility] HospitalPipylziNNGPDJDKTV9139-57-77 12:55:00 Test Item Value Reference Range Interpretation Comments Lymphocytes # (test code = Lymphocytes [phone] #) [facility]2021-10-07 12:55:00 Test Item Value Reference Range Interpretation Comments Chloride Lvl (test code = Chloride Lvl) 105 98-110 [facility] HospitalIqdheixVRAZFDMOKB3719-12-43 12:55:00 Test Item Value Reference Range Interpretation Comments Monocytes # (test code = Monocytes #) 350 200-950 [place] 870041-10-07 12:55:00 Test Item Value Reference Range Interpretation Comments Eosinophils # (test code = Eosinophils 72 15-500 #) [place] 870041-10-07 12:55:00 Test Item Value Reference Range Interpretation Comments Eosinophils # (test code = Eosinophils 72 15-500 #) [place] 870041-10-07 12:55:00 Test Item Value Reference Range Interpretation Comments Basophils # (test code 29 See_Comment [Aut omated message] The = Basophils #) system which generated this result tra nsmitted reference range : <=200. The reference r brice was not used to int erpret this result as normal/abnormal . [facility] HospitalGirfbdjXFCQRRNNXL8277-11-09 12:55:00 Test Item Value Reference Range Interpretation Comments Segs (test code = Segs) 65.4 [facility] HospitalUkyzdydATMCZGTKYN6069-06-24 12:55:00 Test Item Value Reference Range Interpretation Comments Lymphocytes (test code = Lymphocytes) 25.2 [facility]2021-10-07 12:55:00 Test Item Value Reference Range Interpretation Comments CO2 (test code = CO2) 29 20-32 [facility] HospitalAinzpxfNDYWTSGMGO8088-62-39 12:55:00 Test Item Value Reference Range Interpretation Comments Monocytes (test code = Monocytes) 7.3 [facility] HospitalBxibupyMLUJHRGAOX1796-20-70 12:55:00 Test Item Value Reference Range Interpretation Comments Eosinophils (test code = Eosinophils) 1.5 [facility] HospitalLjnfaqgTKOBYCDUOF8590-45-61 12:55:00 Test Item Value Reference Range Interpretation Comments Basophils (test code = Basophils) 0.6 [facility] HospitalOqdnwigLMRNFKJHIA9544-20-82 12:55:00 Test Item Value Reference Range Interpretation Comments Sed Rate (test code = Sed Rate) 22 [facility]rhstjjVDUVZCAFOQ9442-34-65 12:55:00 Test Item Value Reference Range Interpretation Comments C-REACTIVE PROTEIN (test code = 2.9 C-REACTIVE PROTEIN) [facility]2021-10-07 12:55:00 Test Item Value Reference Range Interpretation Comments Calcium Lvl (test code = Calcium Lvl) 8.7 8.6-10.4 [facility] HospitalAemttpoEIOLKYEIWD9406-80-37 12:55:00 Test Item Value Reference Range Interpretation Comments Basophils # (test code 29 See_Comment [Aut omated message] The = Basophils #) system which generated this result tra nsmitted reference range : <=200. The reference r brice was not used to int erpret this result as normal/abnormal . [facility]2021-10-07 12:55:00 Test Item Value Reference Range Interpretation Comments Vitamin B12 Lvl (test code = Vitamin 951 818-7923 B12 Lvl) [facility]2021-10-07 12:55:00 Test Item Value Reference Range Interpretation Comments Glucose Lvl (test code = Glucose Lvl) 151 65-99 [facility]2021-10-07 12:55:00 Test Item Value Reference Range Interpretation Comments BUN (test code = BUN) 17 7-25 [facility] HospitalJxctscyDELMXJAXRD0209-67-66 12:55:00 Test Item Value Reference Range Interpretation Comments Segs (test code = Segs) 65.4 [place] 852421-10-07 12:55:00 Test Item Value Reference Range Interpretation Comments Total Protein (test code = Total 6.8 6.1-8.1 Protein) [place] 852421-10-07 12:55:00 Test Item Value Reference Range Interpretation Comments Creatinine Lvl (test code = Creatinine 0.49 0.50-1.05 Lvl) [facility]2021-10-07 12:55:00 Test Item Value Reference Range Interpretation Comments eGFR NON-AFR. BARBADIAN (test code = 107 eGFR NON-AFR. BARBADIAN) [facility]2021-10-07 12:55:00 Test Item Value Reference Range Interpretation Comments eGFR (test code = eGFR 124 ) [place] 852421-10-07 12:55:00 Test Item Value Reference Range Interpretation Comments B/C Ratio (test code = B/C Ratio) 35 6-22 [facility]2021-10-07 12:55:00 Test Item Value Reference Range Interpretation Comments Sodium Lvl (test code = Sodium Lvl) 140 135-146 [facility]2021-10-07 12:55:00 Test Item Value Reference Range Interpretation Comments eGFR NON-AFR. BARBADIAN (test code = 107 eGFR NON-AFR. BARBADIAN) [facility]2021-10-07 12:55:00 Test Item Value Reference Range Interpretation Comments Potassium Lvl (test code = Potassium 4.0 3.5-5.3 Lvl) [facility]2021-10-07 12:55:00 Test Item Value Reference Range Interpretation Comments Chloride Lvl (test code = Chloride Lvl) 105 98-110 [facility]2021-10-07 12:55:00 Test Item Value Reference Range Interpretation Comments CO2 (test code = CO2) 29 20-32 [facility]2021-10-07 12:55:00 Test Item Value Reference Range Interpretation Comments Calcium Lvl (test code = Calcium Lvl) 8.7 8.6-10.4 [place] 852421-10-07 12:55:00 Test Item Value Reference Range Interpretation Comments Total Protein (test code = Total 6.8 6.1-8.1 Protein) [facility]2021-10-07 12:55:00 Test Item Value Reference Range Interpretation Comments Albumin Lvl (test code = Albumin Lvl) 3.7 3.6-5.1 [place] 870041-10-07 12:55:00 Test Item Value Reference Range Interpretation Comments Lymphocytes (test code = Lymphocytes) 25.2 [place] 852421-10-07 12:55:00 Test Item Value Reference Range Interpretation Comments Albumin Lvl (test code = Albumin Lvl) 3.7 3.6-5.1 [place] 852421-10-07 12:55:00 Test Item Value Reference Range Interpretation Comments Globulin (test code = Globulin) 3.1 1.9-3.7 [place] 852421-10-07 12:55:00 Test Item Value Reference Range Interpretation Comments A/G Ratio (test code = A/G Ratio) 1.2 1.0-2.5 [place] 852421-10-07 12:55:00 Test Item Value Reference Range Interpretation Comments Bili Total (test code = Bili Total) 0.6 0.2-1.2 [facility]2021-10-07 12:55:00 Test Item Value Reference Range Interpretation Comments Globulin (test code = Globulin) 3.1 1.9-3.7 [place] 852421-10-07 12:55:00 Test Item Value Reference Range Interpretation Comments Alk Phos (test code = Alk Phos) 59 37-153 [facility]2021-10-07 12:55:00 Test Item Value Reference Range Interpretation Comments ASPARTATE TRANSAMINASE (test code = 18 10-35 ASPARTATE TRANSAMINASE) [place] 852421-10-07 12:55:00 Test Item Value Reference Range Interpretation Comments ALANINE AMINOTRANSFERASE (test code = 23 6-29 ALANINE AMINOTRANSFERASE) [place] 870041-10-07 12:55:00 Test Item Value Reference Range Interpretation Comments WBC X 10x3 (test code = WBC X 10x3) 4.8 3.8-10.8 [place] 870041-10-07 12:55:00 Test Item Value Reference Range Interpretation Comments RBC X 10x6 (test code = RBC X 10x6) 4.50 3.80-5.10 [facility]2021-10-07 12:55:00 Test Item Value Reference Range Interpretation Comments A/G Ratio (test code = A/G Ratio) 1.2 1.0-2.5 [facility] HospitalVhxsixzMNRKBPVQLJ2979-76-18 12:55:00 Test Item Value Reference Range Interpretation Comments Hgb (test code = Hgb) 12.1 11.7-15.5 [place] 870041-10-07 12:55:00 Test Item Value Reference Range Interpretation Comments Monocytes (test code = Monocytes) 7.3 [place] 870041-10-07 12:55:00 Test Item Value Reference Range Interpretation Comments Hct (test code = Hct) 37.8 35.0-45.0 [place] 870041-10-07 12:55:00 Test Item Value Reference Range Interpretation Comments MCV (test code = MCV) 84.0 80.0-100.0 [place] 870041-10-07 12:55:00 Test Item Value Reference Range Interpretation Comments MCH (test code = MCH) 26.9 pg 27.0-33.0 [facility]2021-10-07 12:55:00 Test Item Value Reference Range Interpretation Comments Bili Total (test code = Bili Total) 0.6 0.2-1.2 [facility] HospitalVabqkidTQABMSNKNG8294-86-58 12:55:00 Test Item Value Reference Range Interpretation Comments MCHC (test code = MCHC) 32.0 32.0-36.0 [facility] HospitalZhhnxieFYVDEKEZID3991-56-65 12:55:00 Test Item Value Reference Range Interpretation Comments RDW (test code = RDW) 14.0 11.0-15.0 [facility] HospitalFcrasrzRCCHMZSMUE2552-87-76 12:55:00 Test Item Value Reference Range Interpretation Comments Platelet (test code = Platelet) 151 140-400 [facility] [facility]CCZ[facility]YYV5525[facility]70-59 12:55:00 Test Item Value Reference Range Interpretation Comments MPV (test code = MPV) 12.1 7.5-12.5 [facility]OsbbffsWBAXTVVEZP9120-74-67 12:55:00 Test Item Value Reference Range Interpretation Comments Neutrophils # (test code = Neutrophils 9019 7848-7189 #) [facility]2021-10-07 12:55:00 Test Item Value Reference Range Interpretation Comments Alk Phos (test code = Alk Phos) 59 37-153 [place] 870041-10-07 12:55:00 Test Item Value Reference Range Interpretation Comments Lymphocytes # (test code = Lymphocytes 5311 894-2144 #) [place] 870041-10-07 12:55:00 Test Item Value Reference Range Interpretation Comments Monocytes # (test code = Monocytes #) 350 200-950 [place] 870041-10-07 12:55:00 Test Item Value Reference Range Interpretation Comments Eosinophils (test code = Eosinophils) 1.5 [place] 870041-10-07 12:55:00 Test Item Value Reference Range Interpretation Comments Eosinophils # (test code = Eosinophils 72 15-500 #) [facility]NsfhrpxGUNQKNRLHD9317-04-23 12:55:00 Test Item Value Reference Range Interpretation Comments Basophils # (test code 29 See_Comment [Aut omated message] The = Basophils #) system which generated this result tra nsmitted reference range : <=200. The reference r brice was not used to int erpret this result as normal/abnormal . [facility]2021-10-07 12:55:00 Test Item Value Reference Range Interpretation Comments ASPARTATE TRANSAMINASE (test code = 18 10-35 ASPARTATE TRANSAMINASE) [facility] HospitalSgidezsOFJIQMQZMB8210-77-06 12:55:00 Test Item Value Reference Range Interpretation Comments Segs (test code = Segs) 65.4 [place] 870041-10-07 12:55:00 Test Item Value Reference Range Interpretation Comments Lymphocytes (test code = Lymphocytes) 25.2 [place] 870041-10-07 12:55:00 Test Item Value Reference Range Interpretation Comments Monocytes (test code = Monocytes) 7.3 [place] 870041-10-07 12:55:00 Test Item Value Reference Range Interpretation Comments Eosinophils (test code = Eosinophils) 1.5 [place] 870041-10-07 12:55:00 Test Item Value Reference Range Interpretation Comments Basophils (test code = Basophils) 0.6 [place] 870041-10-07 12:55:00 Test Item Value Reference Range Interpretation Comments Sed Rate (test code = Sed Rate) 22 [facility]2021-10-07 12:55:00 Test Item Value Reference Range Interpretation Comments ALANINE AMINOTRANSFERASE (test code = 23 6-29 ALANINE AMINOTRANSFERASE) [facility]LokrxmcLXJTLFOYUN2244-58-72 12:55:00 Test Item Value Reference Range Interpretation Comments C-REACTIVE PROTEIN (test code = 2.9 C-REACTIVE PROTEIN) [facility] HospitalSqygbppOCQGSJNWMH0916-56-85 12:55:00 Test Item Value Reference Range Interpretation Comments Basophils (test code = Basophils) 0.6 [facility]2021-10-07 12:55:00 Test Item Value Reference Range Interpretation Comments Vitamin B12 Lvl (test code = Vitamin 462 252-2094 B12 Lvl) [facility]2021-10-07 12:55:00 Test Item Value Reference Range Interpretation Comments Glucose Lvl (test code = Glucose Lvl) 151 65-99 [facility]2021-10-07 12:55:00 Test Item Value Reference Range Interpretation Comments BUN (test code = BUN) 17 7-25 [place] 870041-10-07 12:55:00 Test Item Value Reference Range Interpretation Comments WBC X 10x3 (test code = WBC X 10x3) 4.8 3.8-10.8 [place] 870041-10-07 12:55:00 Test Item Value Reference Range Interpretation Comments Sed Rate (test code = Sed Rate) 22 [facility]2021-10-07 12:55:00 Test Item Value Reference Range Interpretation Comments Creatinine Lvl (test code = Creatinine 0.49 0.50-1.05 Lvl) [facility]2021-10-07 12:55:00 Test Item Value Reference Range Interpretation Comments eGFR NON-AFR. BARBADIAN (test code = 107 eGFR NON-AFR. BARBADIAN) [facility]2021-10-07 12:55:00 Test Item Value Reference Range Interpretation Comments eGFR (test code = eGFR 124 ) [facility]2021-10-07 12:55:00 Test Item Value Reference Range Interpretation Comments B/C Ratio (test code = B/C Ratio) 35 6-22 [place] 870041-10-07 12:55:00 Test Item Value Reference Range Interpretation Comments RBC X 10x6 (test code = RBC X 10x6) 4.50 3.80-5.10 [place] 852421-10-07 12:55:00 Test Item Value Reference Range Interpretation Comments Sodium Lvl (test code = Sodium Lvl) 140 135-146 [place] 852421-10-07 12:55:00 Test Item Value Reference Range Interpretation Comments Potassium Lvl (test code = Potassium 4.0 3.5-5.3 Lvl) [place] 852421-10-07 12:55:00 Test Item Value Reference Range Interpretation Comments Chloride Lvl (test code = Chloride Lvl) 105 98-110 [place] 852421-10-07 12:55:00 Test Item Value Reference Range Interpretation Comments CO2 (test code = CO2) 29 20-32 [place] 852421-10-07 12:55:00 Test Item Value Reference Range Interpretation Comments Calcium Lvl (test code = Calcium Lvl) 8.7 8.6-10.4 [facility]2216[facility] 12:55:00 Test Item Value Reference Range Interpretation Comments Hgb (test code = Hgb) 12.1 11.7-15.5 [place] 852421-10-07 12:55:00 Test Item Value Reference Range Interpretation Comments Total Protein (test code = Total 6.8 6.1-8.1 Protein) [facility]CdkrslbLTYGGMZKFH4013-27-14 12:55:00 Test Item Value Reference Range Interpretation Comments C-REACTIVE PROTEIN (test code = 2.9 C-REACTIVE PROTEIN) [facility]2021-10-07 12:55:00 Test Item Value Reference Range Interpretation Comments Albumin Lvl (test code = Albumin Lvl) 3.7 3.6-5.1 [facility]2021-10-07 12:55:00 Test Item Value Reference Range Interpretation Comments Globulin (test code = Globulin) 3.1 1.9-3.7 [place] 852421-10-07 12:55:00 Test Item Value Reference Range Interpretation Comments A/G Ratio (test code = A/G Ratio) 1.2 1.0-2.5 [facility]2021-10-07 12:55:00 Test Item Value Reference Range Interpretation Comments eGFR (test code = eGFR 124 ) [facility]2021-10-07 12:55:00 Test Item Value Reference Range Interpretation Comments Bili Total (test code = Bili Total) 0.6 0.2-1.2 [facility]2021-10-07 12:55:00 Test Item Value Reference Range Interpretation Comments Alk Phos (test code = Alk Phos) 59 37-153 [place] 852421-10-07 12:55:00 Test Item Value Reference Range Interpretation Comments ASPARTATE TRANSAMINASE (test code = 18 10-35 ASPARTATE TRANSAMINASE) [place] 852421-10-07 12:55:00 Test Item Value Reference Range Interpretation Comments ALANINE AMINOTRANSFERASE (test code = 23 6-29 ALANINE AMINOTRANSFERASE) [place] [address]-10-07 12:55:00 Test Item Value Reference Range Interpretation Comments WBC X 10x3 (test code = WBC X 10x3) 4.8 3.8-10.8 [place] 870041-10-07 12:55:00 Test Item Value Reference Range Interpretation Comments Hct (test code = Hct) 37.8 35.0-45.0 [place] 870041-10-07 12:55:00 Test Item Value Reference Range Interpretation Comments RBC X 10x6 (test code = RBC X 10x6) 4.50 3.80-5.10 [place] 870041-10-07 12:55:00 Test Item Value Reference Range Interpretation Comments Hgb (test code = Hgb) 12.1 11.7-15.5 [place] 870041-10-07 12:55:00 Test Item Value Reference Range Interpretation Comments Hct (test code = Hct) 37.8 35.0-45.0 [place] 870041-10-07 12:55:00 Test Item Value Reference Range Interpretation Comments MCV (test code = MCV) 84.0 80.0-100.0 [place] [address]-10-07 12:55:00 Test Item Value Reference Range Interpretation Comments MCH (test code = MCH) 26.9 pg 27.0-33.0 [place] 870041-10-07 12:55:00 Test Item Value Reference Range Interpretation Comments MCV (test code = MCV) 84.0 80.0-100.0 [place] [address]-10-07 12:55:00 Test Item Value Reference Range Interpretation Comments MCHC (test code = MCHC) 32.0 32.0-36.0 [place] 870041-10-07 12:55:00 Test Item Value Reference Range Interpretation Comments RDW (test code = RDW) 14.0 11.0-15.0 [place] 870041-10-07 12:55:00 Test Item Value Reference Range Interpretation Comments Platelet (test code = Platelet) 151 140-400 [facility] HospitalDveetpdKSMOEUEEFR9908-26-60 12:55:00 Test Item Value Reference Range Interpretation Comments MPV (test code = MPV) 12.1 7.5-12.5 [place] 870041-10-07 12:55:00 Test Item Value Reference Range Interpretation Comments Neutrophils # (test code = Neutrophils 3139 6547-3003 #) [facility] HospitalTbulbkiVWZZDMKIHC2877-38-91 12:55:00 Test Item Value Reference Range Interpretation Comments MCH (test code = MCH) 26.9 pg 27.0-33.0 [facility] HospitalHvmmemfZVITPLDGVZ3113-75-22 12:55:00 Test Item Value Reference Range Interpretation Comments Lymphocytes # (test code = Lymphocytes [phone] #) [facility] HospitalXovjzjcJPJPEAKFWL3882-62-19 12:55:00 Test Item Value Reference Range Interpretation Comments Monocytes # (test code = Monocytes #) 350 200-950 [facility] HospitalIeuwxcuERBZSYOJQI3404-39-11 12:55:00 Test Item Value Reference Range Interpretation Comments Eosinophils # (test code = Eosinophils 72 15-500 #) [facility] HospitalLzylmgaIKMULENOZW1558-08-91 12:55:00 Test Item Value Reference Range Interpretation Comments Basophils # (test code 29 See_Comment [Aut omated message] The = Basophils #) system which generated this result tra nsmitted reference range : <=200. The reference r brice was not used to int erpret this result as normal/abnormal . [facility] HospitalRvcqnihLWTTKWNJXU6318-42-87 12:55:00 Test Item Value Reference Range Interpretation Comments Segs (test code = Segs) 65.4 [facility] HospitalQlwbxiyUATLIIUESI1791-13-42 12:55:00 Test Item Value Reference Range Interpretation Comments MCHC (test code = MCHC) 32.0 32.0-36.0 [place] 870041-10-07 12:55:00 Test Item Value Reference Range Interpretation Comments Lymphocytes (test code = Lymphocytes) 25.2 [place] 870041-10-07 12:55:00 Test Item Value Reference Range Interpretation Comments Monocytes (test code = Monocytes) 7.3 [place] 870041-10-07 12:55:00 Test Item Value Reference Range Interpretation Comments Eosinophils (test code = Eosinophils) 1.5 [place] [address]-10-07 12:55:00 Test Item Value Reference Range Interpretation Comments Basophils (test code = Basophils) 0.6 [place] 870041-10-07 12:55:00 Test Item Value Reference Range Interpretation Comments Sed Rate (test code = Sed Rate) 22 [place] [address]-10-07 12:55:00 Test Item Value Reference Range Interpretation Comments RDW (test code = RDW) 14.0 11.0-15.0 [place] 015591-10-07 12:55:00 Test Item Value Reference Range Interpretation Comments C-REACTIVE PROTEIN (test code = 2.9 C-REACTIVE PROTEIN) [facility]2021-10-07 12:55:00 Test Item Value Reference Range Interpretation Comments Vitamin B12 Lvl (test code = Vitamin 287 216-5525 B12 Lvl) [facility]2021-10-07 12:55:00 Test Item Value Reference Range Interpretation Comments Glucose Lvl (test code = Glucose Lvl) 151 65-99 [facility]2021-10-07 12:55:00 Test Item Value Reference Range Interpretation Comments BUN (test code = BUN) 17 7-25 [place] 852421-10-07 12:55:00 Test Item Value Reference Range Interpretation Comments Creatinine Lvl (test code = Creatinine 0.49 0.50-1.05 Lvl) [facility] HospitalQtixjvsGYQJXLKHNY7678-40-66 12:55:00 Test Item Value Reference Range Interpretation Comments Platelet (test code = Platelet) 151 140-400 [facility]2021-10-07 12:55:00 Test Item Value Reference Range Interpretation Comments eGFR NON-AFR. BARBADIAN (test code = 107 eGFR NON-AFR. BARBADIAN) [place] 852421-10-07 12:55:00 Test Item Value Reference Range Interpretation Comments eGFR (test code = eGFR 124 ) [place] 852421-10-07 12:55:00 Test Item Value Reference Range Interpretation Comments B/C Ratio (test code = B/C Ratio) 35 6-22 [place] 852421-10-07 12:55:00 Test Item Value Reference Range Interpretation Comments Sodium Lvl (test code = Sodium Lvl) 140 135-146 [place] 852421-10-07 12:55:00 Test Item Value Reference Range Interpretation Comments Potassium Lvl (test code = Potassium 4.0 3.5-5.3 Lvl) [place] 870041-10-07 12:55:00 Test Item Value Reference Range Interpretation Comments MPV (test code = MPV) 12.1 7.5-12.5 [place] 852421-10-07 12:55:00 Test Item Value Reference Range Interpretation Comments Chloride Lvl (test code = Chloride Lvl) 105 98-110 [place] 852421-10-07 12:55:00 Test Item Value Reference Range Interpretation Comments CO2 (test code = CO2) 29 20-32 [place] 852421-10-07 12:55:00 Test Item Value Reference Range Interpretation Comments Calcium Lvl (test code = Calcium Lvl) 8.7 8.6-10.4 [place] 852421-10-07 12:55:00 Test Item Value Reference Range Interpretation Comments Total Protein (test code = Total 6.8 6.1-8.1 Protein) [facility]2021-10-07 12:55:00 Test Item Value Reference Range Interpretation Comments Albumin Lvl (test code = Albumin Lvl) 3.7 3.6-5.1 [place] 870041-10-07 12:55:00 Test Item Value Reference Range Interpretation Comments Neutrophils # (test code = Neutrophils 9053 5375-0018 #) [facility]2021-10-07 12:55:00 Test Item Value Reference Range Interpretation Comments Globulin (test code = Globulin) 3.1 1.9-3.7 [place] 852421-10-07 12:55:00 Test Item Value Reference Range Interpretation Comments A/G Ratio (test code = A/G Ratio) 1.2 1.0-2.5 [place] 852421-10-07 12:55:00 Test Item Value Reference Range Interpretation Comments Bili Total (test code = Bili Total) 0.6 0.2-1.2 [facility]2021-10-07 12:55:00 Test Item Value Reference Range Interpretation Comments Alk Phos (test code = Alk Phos) 59 37-153 [facility]2021-10-07 12:55:00 Test Item Value Reference Range Interpretation Comments ASPARTATE TRANSAMINASE (test code = 18 10-35 ASPARTATE TRANSAMINASE) [place] 870041-10-07 12:55:00 Test Item Value Reference Range Interpretation Comments Lymphocytes # (test code = Lymphocytes 4088 569-7588 #) [facility]2021-10-07 12:55:00 Test Item Value Reference Range Interpretation Comments ALANINE AMINOTRANSFERASE (test code = 23 6-29 ALANINE AMINOTRANSFERASE) [facility] HospitalIuttdzzIPFCSYBCAF7626-71-58 12:55:00 Test Item Value Reference Range Interpretation Comments WBC X 10x3 (test code = WBC X 10x3) 4.8 3.8-10.8 [place] 870041-10-07 12:55:00 Test Item Value Reference Range Interpretation Comments RBC X 10x6 (test code = RBC X 10x6) 4.50 3.80-5.10 [facility] HospitalYjyliapJBLGSZLXBA9375-78-64 12:55:00 Test Item Value Reference Range Interpretation Comments Hgb (test code = Hgb) 12.1 11.7-15.5 [facility] HospitalXbigpprCSEVUJQBRH0322-16-45 12:55:00 Test Item Value Reference Range Interpretation Comments Monocytes # (test code = Monocytes #) 350 200-950 [facility] HospitalElkpenrDOZBLWZBRI9447-17-17 12:55:00 Test Item Value Reference Range Interpretation Comments Hct (test code = Hct) 37.8 35.0-45.0 [place] 870041-10-07 12:55:00 Test Item Value Reference Range Interpretation Comments MCV (test code = MCV) 84.0 80.0-100.0 [place] 870041-10-07 12:55:00 Test Item Value Reference Range Interpretation Comments MCH (test code = MCH) 26.9 pg 27.0-33.0 [place] 870041-10-07 12:55:00 Test Item Value Reference Range Interpretation Comments MCHC (test code = MCHC) 32.0 32.0-36.0 [place] [address]-10-07 12:55:00 Test Item Value Reference Range Interpretation Comments RDW (test code = RDW) 14.0 11.0-15.0 [facility]2021-10-07 12:55:00 Test Item Value Reference Range Interpretation Comments B/C Ratio (test code = B/C Ratio) 35 6-22 [facility] HospitalBetqdkqQKJYFLMQQZ1974-29-81 12:55:00 Test Item Value Reference Range Interpretation Comments Platelet (test code = Platelet) 151 140-400 [facility] HospitalTnrtyhxJXAOVCPVII6732-11-83 12:55:00 Test Item Value Reference Range Interpretation Comments MPV (test code = MPV) 12.1 7.5-12.5 [place] 870041-10-07 12:55:00 Test Item Value Reference Range Interpretation Comments Neutrophils # (test code = Neutrophils 3139 1883-7479 #) [facility] HospitalAqhglcdVVQHXZCZVI8070-93-34 12:55:00 Test Item Value Reference Range Interpretation Comments Lymphocytes # (test code = Lymphocytes 7906 440-5777 #) [facility] HospitalQndrmrgPMQBTWCIDQ3594-48-02 12:55:00 Test Item Value Reference Range Interpretation Comments Monocytes # (test code = Monocytes #) 350 200-950 [facility] HospitalGwgqhfyPLGPLQHTKD4406-78-32 12:55:00 Test Item Value Reference Range Interpretation Comments Eosinophils # (test code = Eosinophils 72 15-500 #) [facility] HospitalDyrbumuIHFQUBVEUM1212-06-42 12:55:00 Test Item Value Reference Range Interpretation Comments Eosinophils # (test code = Eosinophils 72 15-500 #) [facility] HospitalCqmxxfiWDLWVUQWAH0252-29-75 12:55:00 Test Item Value Reference Range Interpretation Comments Basophils # (test code 29 See_Comment [Aut omated message] The = Basophils #) system which generated this result tra nsmitted reference range : <=200. The reference r brice was not used to int erpret this result as normal/abnormal . [facility] HospitalZnohawqUQZEGYKRLZ0400-24-18 12:55:00 Test Item Value Reference Range Interpretation Comments Segs (test code = Segs) 65.4 [place] 870041-10-07 12:55:00 Test Item Value Reference Range Interpretation Comments Lymphocytes (test code = Lymphocytes) 25.2 [place] 870041-10-07 12:55:00 Test Item Value Reference Range Interpretation Comments Monocytes (test code = Monocytes) 7.3 [place] 870041-10-07 12:55:00 Test Item Value Reference Range Interpretation Comments Eosinophils (test code = Eosinophils) 1.5 [place] 870041-10-07 12:55:00 Test Item Value Reference Range Interpretation Comments Basophils # (test code = Basophils #) 29 <=200 [place] 870041-10-07 12:55:00 Test Item Value Reference Range Interpretation Comments Basophils (test code = Basophils) 0.6 [place] [address]-10-07 12:55:00 Test Item Value Reference Range Interpretation Comments Sed Rate (test code = Sed Rate) 22 [place] [address]-10-07 12:55:00 Test Item Value Reference Range Interpretation Comments C-REACTIVE PROTEIN (test code = 2.9 C-REACTIVE PROTEIN) [facility]2021-10-07 12:55:00 Test Item Value Reference Range Interpretation Comments Vitamin B12 Lvl (test code = Vitamin 289 652-9096 B12 Lvl) [facility]2021-10-07 12:55:00 Test Item Value Reference Range Interpretation Comments Glucose Lvl (test code = Glucose Lvl) 151 65-99 [place] 870041-10-07 12:55:00 Test Item Value Reference Range Interpretation Comments Segs (test code = Segs) 65.4 [place] 852421-10-07 12:55:00 Test Item Value Reference Range Interpretation Comments BUN (test code = BUN) 17 7-25 [facility]2021-10-07 12:55:00 Test Item Value Reference Range Interpretation Comments Creatinine Lvl (test code = Creatinine 0.49 0.50-1.05 Lvl) [facility]2021-10-07 12:55:00 Test Item Value Reference Range Interpretation Comments eGFR NON-AFR. BARBADIAN (test code = 107 eGFR NON-AFR. BARBADIAN) [place] 852421-10-07 12:55:00 Test Item Value Reference Range Interpretation Comments eGFR (test code = eGFR 124 ) [place] 852421-10-07 12:55:00 Test Item Value Reference Range Interpretation Comments B/C Ratio (test code = B/C Ratio) 35 6-22 [place] 870041-10-07 12:55:00 Test Item Value Reference Range Interpretation Comments Lymphocytes (test code = Lymphocytes) 25.2 [place] 852421-10-07 12:55:00 Test Item Value Reference Range Interpretation Comments Sodium Lvl (test code = Sodium Lvl) 140 135-146 [place] 852421-10-07 12:55:00 Test Item Value Reference Range Interpretation Comments Potassium Lvl (test code = Potassium 4.0 3.5-5.3 Lvl) [place] 852421-10-07 12:55:00 Test Item Value Reference Range Interpretation Comments Chloride Lvl (test code = Chloride Lvl) 105 98-110 [place] 852421-10-07 12:55:00 Test Item Value Reference Range Interpretation Comments CO2 (test code = CO2) 29 20-32 [place] 852421-10-07 12:55:00 Test Item Value Reference Range Interpretation Comments Calcium Lvl (test code = Calcium Lvl) 8.7 8.6-10.4 [place] 870041-10-07 12:55:00 Test Item Value Reference Range Interpretation Comments Monocytes (test code = Monocytes) 7.3 [place] 852421-10-07 12:55:00 Test Item Value Reference Range Interpretation Comments Total Protein (test code = Total 6.8 6.1-8.1 Protein) [place] 852421-10-07 12:55:00 Test Item Value Reference Range Interpretation Comments Albumin Lvl (test code = Albumin Lvl) 3.7 3.6-5.1 [place] 852421-10-07 12:55:00 Test Item Value Reference Range Interpretation Comments Globulin (test code = Globulin) 3.1 1.9-3.7 [place] 852421-10-07 12:55:00 Test Item Value Reference Range Interpretation Comments A/G Ratio (test code = A/G Ratio) 1.2 1.0-2.5 [place] 852421-10-07 12:55:00 Test Item Value Reference Range Interpretation Comments Bili Total (test code = Bili Total) 0.6 0.2-1.2 [place] 870041-10-07 12:55:00 Test Item Value Reference Range Interpretation Comments Eosinophils (test code = Eosinophils) 1.5 [facility]2021-10-07 12:55:00 Test Item Value Reference Range Interpretation Comments Alk Phos (test code = Alk Phos) 59 37-153 [place] 852421-10-07 12:55:00 Test Item Value Reference Range Interpretation Comments ASPARTATE TRANSAMINASE (test code = 18 10-35 ASPARTATE TRANSAMINASE) [place] 852421-10-07 12:55:00 Test Item Value Reference Range Interpretation Comments ALANINE AMINOTRANSFERASE (test code = 23 6-29 ALANINE AMINOTRANSFERASE) [place] 870041-10-07 12:55:00 Test Item Value Reference Range Interpretation Comments WBC X 10x3 (test code = WBC X 10x3) 4.8 3.8-10.8 [place] 870041-10-07 12:55:00 Test Item Value Reference Range Interpretation Comments Basophils (test code = Basophils) 0.6 [place] 870041-10-07 12:55:00 Test Item Value Reference Range Interpretation Comments RBC X 10x6 (test code = RBC X 10x6) 4.50 3.80-5.10 [place] 870041-10-07 12:55:00 Test Item Value Reference Range Interpretation Comments Hgb (test code = Hgb) 12.1 11.7-15.5 [place] 870041-10-07 12:55:00 Test Item Value Reference Range Interpretation Comments Hct (test code = Hct) 37.8 35.0-45.0 [place] 870041-10-07 12:55:00 Test Item Value Reference Range Interpretation Comments MCV (test code = MCV) 84.0 80.0-100.0 [place] 870041-10-07 12:55:00 Test Item Value Reference Range Interpretation Comments MCH (test code = MCH) 26.9 pg 27.0-33.0 [place] 870041-10-07 12:55:00 Test Item Value Reference Range Interpretation Comments Sed Rate (test code = Sed Rate) 22 [place] 870041-10-07 12:55:00 Test Item Value Reference Range Interpretation Comments MCHC (test code = MCHC) 32.0 32.0-36.0 [place] 870041-10-07 12:55:00 Test Item Value Reference Range Interpretation Comments RDW (test code = RDW) 14.0 11.0-15.0 [place] 870041-10-07 12:55:00 Test Item Value Reference Range Interpretation Comments Platelet (test code = Platelet) 151 140-400 [place] 870041-10-07 12:55:00 Test Item Value Reference Range Interpretation Comments MPV (test code = MPV) 12.1 7.5-12.5 [place] 870041-10-07 12:55:00 Test Item Value Reference Range Interpretation Comments Neutrophils # (test code = Neutrophils 3139 3802-1187 #) [facility]CphsyveICKNMZGWFG6025-89-09 12:55:00 Test Item Value Reference Range Interpretation Comments Lymphocytes # (test code = Lymphocytes [phone] #) [facility]R5825[facility]70-10 12:55:00 Test Item Value Reference Range Interpretation Comments C-REACTIVE PROTEIN (test code = 2.9 C-REACTIVE PROTEIN) [facility] HospitalJvrlipcWUVOYLMBBB8343-51-53 12:55:00 Test Item Value Reference Range Interpretation Comments Monocytes # (test code = Monocytes #) 350 200-950 [facility] HospitalNtrgxbwKXVMXKGVDG7364-20-89 12:55:00 Test Item Value Reference Range Interpretation Comments Eosinophils # (test code = Eosinophils 72 15-500 #) [facility] HospitalCnmbbzkPRHQEPSDPU1338-82-49 12:55:00 Test Item Value Reference Range Interpretation Comments Basophils # (test code 29 See_Comment [Aut omated message] The = Basophils #) system which generated this result tra nsmitted reference range : <=200. The reference r brice was not used to int erpret this result as normal/abnormal . [facility]GB[facility]QN8568[facility] 12:55:00 Test Item Value Reference Range Interpretation Comments Segs (test code = Segs) 65.4 [facility]DrlmmlxEVGBDRVYLJ3547-60-36 12:55:00 Test Item Value Reference Range Interpretation Comments Lymphocytes (test code = Lymphocytes) 25.2 [facility]2021-10-07 12:55:00 Test Item Value Reference Range Interpretation Comments Sodium Lvl (test code = Sodium Lvl) 140 135-146 [facility] HospitalFlahmkbGGEKFFPWTQ6911-69-80 12:55:00 Test Item Value Reference Range Interpretation Comments Monocytes (test code = Monocytes) 7.3 [facility] HospitalWbofygoILPRYWNNLB3412-13-31 12:55:00 Test Item Value Reference Range Interpretation Comments Eosinophils (test code = Eosinophils) 1.5 [place] 870041-10-07 12:55:00 Test Item Value Reference Range Interpretation Comments Basophils (test code = Basophils) 0.6 [place] 870041-10-07 12:55:00 Test Item Value Reference Range Interpretation Comments Sed Rate (test code = Sed Rate) 22 [facility]bc[facility]om[facility]HWOOCKN5873-13-81 12:55:00 Test Item Value Reference Range Interpretation Comments C-REACTIVE PROTEIN (test code = 2.9 C-REACTIVE PROTEIN) [facility]2021-10-07 12:55:00 Test Item Value Reference Range Interpretation Comments Vitamin B12 Lvl (test code = Vitamin 516 246-4299 B12 Lvl) [facility]2021-10-07 12:55:00 Test Item Value Reference Range Interpretation Comments Vitamin B12 Lvl (test code = Vitamin [phone] B12 Lvl) [facility]2021-10-07 12:55:00 Test Item Value Reference Range Interpretation Comments Glucose Lvl (test code = Glucose Lvl) 151 65-99 [facility]2021-10-07 12:55:00 Test Item Value Reference Range Interpretation Comments BUN (test code = BUN) 17 7-25 [facility]2021-10-07 12:55:00 Test Item Value Reference Range Interpretation Comments Creatinine Lvl (test code = Creatinine 0.49 0.50-1.05 Lvl) [facility]2021-10-07 12:55:00 Test Item Value Reference Range Interpretation Comments eGFR NON-AFR. BARBADIAN (test code = 107 eGFR NON-AFR. BARBADIAN) [facility]2021-10-07 12:55:00 Test Item Value Reference Range Interpretation Comments Glucose Lvl (test code = Glucose Lvl) 151 65-99 [facility]2021-10-07 12:55:00 Test Item Value Reference Range Interpretation Comments eGFR (test code = eGFR 124 ) [facility]2021-10-07 12:55:00 Test Item Value Reference Range Interpretation Comments B/C Ratio (test code = B/C Ratio) 35 6-22 [place] 852421-10-07 12:55:00 Test Item Value Reference Range Interpretation Comments Sodium Lvl (test code = Sodium Lvl) 140 135-146 [place] 852421-10-07 12:55:00 Test Item Value Reference Range Interpretation Comments Potassium Lvl (test code = Potassium 4.0 3.5-5.3 Lvl) [place] 852421-10-07 12:55:00 Test Item Value Reference Range Interpretation Comments Chloride Lvl (test code = Chloride Lvl) 105 98-110 [place] 852421-10-07 12:55:00 Test Item Value Reference Range Interpretation Comments BUN (test code = BUN) 17 7-25 [place] 852421-10-07 12:55:00 Test Item Value Reference Range Interpretation Comments CO2 (test code = CO2) 29 20-32 [place] 852421-10-07 12:55:00 Test Item Value Reference Range Interpretation Comments Calcium Lvl (test code = Calcium Lvl) 8.7 8.6-10.4 [facility]2021-10-07 12:55:00 Test Item Value Reference Range Interpretation Comments Total Protein (test code = Total 6.8 6.1-8.1 Protein) [facility]2021-10-07 12:55:00 Test Item Value Reference Range Interpretation Comments Albumin Lvl (test code = Albumin Lvl) 3.7 3.6-5.1 [facility]2021-10-07 12:55:00 Test Item Value Reference Range Interpretation Comments Globulin (test code = Globulin) 3.1 1.9-3.7 [place] 852421-10-07 12:55:00 Test Item Value Reference Range Interpretation Comments Potassium Lvl (test code = Potassium 4.0 3.5-5.3 Lvl) [facility]2021-10-07 12:55:00 Test Item Value Reference Range Interpretation Comments A/G Ratio (test code = A/G Ratio) 1.2 1.0-2.5 [place] 852421-10-07 12:55:00 Test Item Value Reference Range Interpretation Comments Bili Total (test code = Bili Total) 0.6 0.2-1.2 [place] [address]-10-07 12:55:00 Test Item Value Reference Range Interpretation Comments Alk Phos (test code = Alk Phos) 59 37-153 [place] 852421-10-07 12:55:00 Test Item Value Reference Range Interpretation Comments ASPARTATE TRANSAMINASE (test code = 18 10-35 ASPARTATE TRANSAMINASE) [place] 852421-10-07 12:55:00 Test Item Value Reference Range Interpretation Comments ALANINE AMINOTRANSFERASE (test code = 23 6-29 ALANINE AMINOTRANSFERASE) [place] 852421-10-07 12:55:00 Test Item Value Reference Range Interpretation Comments Creatinine Lvl (test code = Creatinine 0.49 0.50-1.05 Lvl) [place] 870041-10-07 12:55:00 Test Item Value Reference Range Interpretation Comments WBC X 10x3 (test code = WBC X 10x3) 4.8 3.8-10.8 [place] 870041-10-07 12:55:00 Test Item Value Reference Range Interpretation Comments RBC X 10x6 (test code = RBC X 10x6) 4.50 3.80-5.10 [place] 870041-10-07 12:55:00 Test Item Value Reference Range Interpretation Comments Hgb (test code = Hgb) 12.1 11.7-15.5 [place] 870041-10-07 12:55:00 Test Item Value Reference Range Interpretation Comments Hct (test code = Hct) 37.8 35.0-45.0 [place] 852421-10-07 12:55:00 Test Item Value Reference Range Interpretation Comments eGFR NON-AFR. BARBADIAN (test code = 107 eGFR NON-AFR. BARBADIAN) [place] 870041-10-07 12:55:00 Test Item Value Reference Range Interpretation Comments MCV (test code = MCV) 84.0 80.0-100.0 [place] [address]-10-07 12:55:00 Test Item Value Reference Range Interpretation Comments MCH (test code = MCH) 26.9 pg 27.0-33.0 [place] 870041-10-07 12:55:00 Test Item Value Reference Range Interpretation Comments MCHC (test code = MCHC) 32.0 32.0-36.0 [place] 852421-10-07 12:55:00 Test Item Value Reference Range Interpretation Comments eGFR (test code = eGFR 124 ) [facility] HospitalMdxsyypOEVWZPYPBL5507-56-22 12:55:00 Test Item Value Reference Range Interpretation Comments RDW (test code = RDW) 14.0 11.0-15.0 [place] 870041-10-07 12:55:00 Test Item Value Reference Range Interpretation Comments Platelet (test code = Platelet) 151 140-400 [place] 870041-10-07 12:55:00 Test Item Value Reference Range Interpretation Comments MPV (test code = MPV) 12.1 7.5-12.5 [place] 870041-10-07 12:55:00 Test Item Value Reference Range Interpretation Comments Neutrophils # (test code = Neutrophils 3139 4037-2465 #) [facility]2021-10-07 12:55:00 Test Item Value Reference Range Interpretation Comments B/C Ratio (test code = B/C Ratio) 35 6-22 [place] 870041-10-07 12:55:00 Test Item Value Reference Range Interpretation Comments Lymphocytes # (test code = Lymphocytes 5355 940-4553 #) [facility] HospitalVcnvkhpOMIVXIQCIU3151-30-56 12:55:00 Test Item Value Reference Range Interpretation Comments Monocytes # (test code = Monocytes #) 350 200-950 [facility] HospitalMnbpbmsJTJUNCMFTX2099-72-11 12:55:00 Test Item Value Reference Range Interpretation Comments Eosinophils # (test code = Eosinophils 72 15-500 #) [place] 870041-10-07 12:55:00 Test Item Value Reference Range Interpretation Comments Basophils # (test code 29 See_Comment [Aut omated message] The = Basophils #) system which generated this result tra nsmitted reference range : <=200. The reference r brice was not used to int erpret this result as normal/abnormal . [facility]2021-10-07 12:55:00 Test Item Value Reference Range Interpretation Comments Sodium Lvl (test code = Sodium Lvl) 140 135-146 [place] 870041-10-07 12:55:00 Test Item Value Reference Range Interpretation Comments Segs (test code = Segs) 65.4 [place] 870041-10-07 12:55:00 Test Item Value Reference Range Interpretation Comments Lymphocytes (test code = Lymphocytes) 25.2 [place] 870041-10-07 12:55:00 Test Item Value Reference Range Interpretation Comments Monocytes (test code = Monocytes) 7.3 [place] 870041-10-07 12:55:00 Test Item Value Reference Range Interpretation Comments Eosinophils (test code = Eosinophils) 1.5 [place] 852421-10-07 12:55:00 Test Item Value Reference Range Interpretation Comments Potassium Lvl (test code = Potassium 4.0 3.5-5.3 Lvl) [place] 870041-10-07 12:55:00 Test Item Value Reference Range Interpretation Comments Basophils (test code = Basophils) 0.6 [place] [address]-10-07 12:55:00 Test Item Value Reference Range Interpretation Comments Sed Rate (test code = Sed Rate) 22 [place] [address]-10-07 12:55:00 Test Item Value Reference Range Interpretation Comments C-REACTIVE PROTEIN (test code = 2.9 C-REACTIVE PROTEIN) [facility]2021-10-07 12:55:00 Test Item Value Reference Range Interpretation Comments Vitamin B12 Lvl (test code = Vitamin 736 347-3986 B12 Lvl) [facility]2021-10-07 12:55:00 Test Item Value Reference Range Interpretation Comments Chloride Lvl (test code = Chloride Lvl) 105 98-110 [place] 852421-10-07 12:55:00 Test Item Value Reference Range Interpretation Comments Glucose Lvl (test code = Glucose Lvl) 151 65-99 [place] 852421-10-07 12:55:00 Test Item Value Reference Range Interpretation Comments BUN (test code = BUN) 17 7-25 [place] 852421-10-07 12:55:00 Test Item Value Reference Range Interpretation Comments Creatinine Lvl (test code = Creatinine 0.49 0.50-1.05 Lvl) [facility]2021-10-07 12:55:00 Test Item Value Reference Range Interpretation Comments CO2 (test code = CO2) 29 20-32 [place] 852421-10-07 12:55:00 Test Item Value Reference Range Interpretation Comments eGFR NON-AFR. BARBADIAN (test code = 107 eGFR NON-AFR. BARBADIAN) [facility]2021-10-07 12:55:00 Test Item Value Reference Range Interpretation Comments eGFR (test code = eGFR 124 ) [facility]2021-10-07 12:55:00 Test Item Value Reference Range Interpretation Comments B/C Ratio (test code = B/C Ratio) 35 6-22 [place] 852421-10-07 12:55:00 Test Item Value Reference Range Interpretation Comments Sodium Lvl (test code = Sodium Lvl) 140 135-146 [place] 852421-10-07 12:55:00 Test Item Value Reference Range Interpretation Comments Calcium Lvl (test code = Calcium Lvl) 8.7 8.6-10.4 [facility]2021-10-07 12:55:00 Test Item Value Reference Range Interpretation Comments Potassium Lvl (test code = Potassium 4.0 3.5-5.3 Lvl) [facility]2021-10-07 12:55:00 Test Item Value Reference Range Interpretation Comments Chloride Lvl (test code = Chloride Lvl) 105 98-110 [facility]2021-10-07 12:55:00 Test Item Value Reference Range Interpretation Comments CO2 (test code = CO2) 29 20-32 [facility]2021-10-07 12:55:00 Test Item Value Reference Range Interpretation Comments Calcium Lvl (test code = Calcium Lvl) 8.7 8.6-10.4 [facility]2021-10-07 12:55:00 Test Item Value Reference Range Interpretation Comments Total Protein (test code = Total 6.8 6.1-8.1 Protein) [facility]2021-10-07 12:55:00 Test Item Value Reference Range Interpretation Comments Total Protein (test code = Total 6.8 6.1-8.1 Protein) [place] 852421-10-07 12:55:00 Test Item Value Reference Range Interpretation Comments Albumin Lvl (test code = Albumin Lvl) 3.7 3.6-5.1 [place] 852421-10-07 12:55:00 Test Item Value Reference Range Interpretation Comments Globulin (test code = Globulin) 3.1 1.9-3.7 [place] 852421-10-07 12:55:00 Test Item Value Reference Range Interpretation Comments A/G Ratio (test code = A/G Ratio) 1.2 1.0-2.5 [facility]2021-10-07 12:55:00 Test Item Value Reference Range Interpretation Comments Chloride Lvl (test code = Chloride Lvl) 105 98-110 [place] 852421-10-07 12:55:00 Test Item Value Reference Range Interpretation Comments Bili Total (test code = Bili Total) 0.6 0.2-1.2 [place] 852421-10-07 12:55:00 Test Item Value Reference Range Interpretation Comments Alk Phos (test code = Alk Phos) 59 37-153 [place] 852421-10-07 12:55:00 Test Item Value Reference Range Interpretation Comments ASPARTATE TRANSAMINASE (test code = 18 10-35 ASPARTATE TRANSAMINASE) [place] 852421-10-07 12:55:00 Test Item Value Reference Range Interpretation Comments ALANINE AMINOTRANSFERASE (test code = 23 6-29 ALANINE AMINOTRANSFERASE) [place] 852421-10-07 12:55:00 Test Item Value Reference Range Interpretation Comments Albumin Lvl (test code = Albumin Lvl) 3.7 3.6-5.1 [place] 870041-10-07 12:55:00 Test Item Value Reference Range Interpretation Comments WBC X 10x3 (test code = WBC X 10x3) 4.8 3.8-10.8 [place] 870041-10-07 12:55:00 Test Item Value Reference Range Interpretation Comments RBC X 10x6 (test code = RBC X 10x6) 4.50 3.80-5.10 [place] 870041-10-07 12:55:00 Test Item Value Reference Range Interpretation Comments Hgb (test code = Hgb) 12.1 11.7-15.5 [place] 852421-10-07 12:55:00 Test Item Value Reference Range Interpretation Comments Globulin (test code = Globulin) 3.1 1.9-3.7 [place] 870041-10-07 12:55:00 Test Item Value Reference Range Interpretation Comments Hct (test code = Hct) 37.8 35.0-45.0 [place] 870041-10-07 12:55:00 Test Item Value Reference Range Interpretation Comments MCV (test code = MCV) 84.0 80.0-100.0 [place] [address]-10-07 12:55:00 Test Item Value Reference Range Interpretation Comments MCH (test code = MCH) 26.9 pg 27.0-33.0 [place] 870041-10-07 12:55:00 Test Item Value Reference Range Interpretation Comments MCHC (test code = MCHC) 32.0 32.0-36.0 [facility]2021-10-07 12:55:00 Test Item Value Reference Range Interpretation Comments A/G Ratio (test code = A/G Ratio) 1.2 1.0-2.5 [place] 870041-10-07 12:55:00 Test Item Value Reference Range Interpretation Comments RDW (test code = RDW) 14.0 11.0-15.0 [place] [address]-10-07 12:55:00 Test Item Value Reference Range Interpretation Comments Platelet (test code = Platelet) 151 140-400 [facility]UwdxrdhLRCVWPBFAE9098-28-60 12:55:00 Test Item Value Reference Range Interpretation Comments MPV (test code = MPV) 12.1 7.5-12.5 [place] [address]-10-07 12:55:00 Test Item Value Reference Range Interpretation Comments Neutrophils # (test code = Neutrophils 3139 3192-2711 #) [facility]2021-10-07 12:55:00 Test Item Value Reference Range Interpretation Comments Bili Total (test code = Bili Total) 0.6 0.2-1.2 [place] 870041-10-07 12:55:00 Test Item Value Reference Range Interpretation Comments Lymphocytes # (test code = Lymphocytes 8937 301-4304 #) [place] [address]-10-07 12:55:00 Test Item Value Reference Range Interpretation Comments Monocytes # (test code = Monocytes #) 350 200-950 [place] 870041-10-07 12:55:00 Test Item Value Reference Range Interpretation Comments Eosinophils # (test code = Eosinophils 72 15-500 #) [place] 870041-10-07 12:55:00 Test Item Value Reference Range Interpretation Comments Basophils # (test code 29 See_Comment [Aut omated message] The = Basophils #) system which generated this result tra nsmitted reference range : <=200. The reference r brice was not used to int erpret this result as normal/abnormal . [facility]2021-10-07 12:55:00 Test Item Value Reference Range Interpretation Comments Alk Phos (test code = Alk Phos) 59 37-153 [place] 870041-10-07 12:55:00 Test Item Value Reference Range Interpretation Comments Segs (test code = Segs) 65.4 [place] 870041-10-07 12:55:00 Test Item Value Reference Range Interpretation Comments Lymphocytes (test code = Lymphocytes) 25.2 [place] 870041-10-07 12:55:00 Test Item Value Reference Range Interpretation Comments Monocytes (test code = Monocytes) 7.3 [place] 870041-10-07 12:55:00 Test Item Value Reference Range Interpretation Comments Eosinophils (test code = Eosinophils) 1.5 [place] 870041-10-07 12:55:00 Test Item Value Reference Range Interpretation Comments Basophils (test code = Basophils) 0.6 [facility]2021-10-07 12:55:00 Test Item Value Reference Range Interpretation Comments ASPARTATE TRANSAMINASE (test code = 18 10-35 ASPARTATE TRANSAMINASE) [facility] HospitalWtuxqmhEDVMGCGTQL6232-28-10 12:55:00 Test Item Value Reference Range Interpretation Comments Sed Rate (test code = Sed Rate) 22 [facility]uzzounSBVBFABSXL1831-72-26 12:55:00 Test Item Value Reference Range Interpretation Comments C-REACTIVE PROTEIN (test code = 2.9 C-REACTIVE PROTEIN) [facility]2021-10-07 12:55:00 Test Item Value Reference Range Interpretation Comments Vitamin B12 Lvl (test code = Vitamin 953 819-7993 B12 Lvl) [facility]2021-10-07 12:55:00 Test Item Value Reference Range Interpretation Comments Glucose Lvl (test code = Glucose Lvl) 151 65-99 [facility]2021-10-07 12:55:00 Test Item Value Reference Range Interpretation Comments ALANINE AMINOTRANSFERASE (test code = 23 6-29 ALANINE AMINOTRANSFERASE) [place] 852421-10-07 12:55:00 Test Item Value Reference Range Interpretation Comments BUN (test code = BUN) 17 7-25 [facility]2021-10-07 12:55:00 Test Item Value Reference Range Interpretation Comments Creatinine Lvl (test code = Creatinine 0.49 0.50-1.05 Lvl) [facility]2021-10-07 12:55:00 Test Item Value Reference Range Interpretation Comments eGFR NON-AFR. BARBADIAN (test code = 107 eGFR NON-AFR. BARBADIAN) [place] 852421-10-07 12:55:00 Test Item Value Reference Range Interpretation Comments eGFR (test code = eGFR 124 ) [place] 870041-10-07 12:55:00 Test Item Value Reference Range Interpretation Comments WBC X 10x3 (test code = WBC X 10x3) 4.8 3.8-10.8 [place] 852421-10-07 12:55:00 Test Item Value Reference Range Interpretation Comments B/C Ratio (test code = B/C Ratio) 35 6-22 [place] 852421-10-07 12:55:00 Test Item Value Reference Range Interpretation Comments Sodium Lvl (test code = Sodium Lvl) 140 135-146 [place] 852421-10-07 12:55:00 Test Item Value Reference Range Interpretation Comments Potassium Lvl (test code = Potassium 4.0 3.5-5.3 Lvl) [facility]2021-10-07 12:55:00 Test Item Value Reference Range Interpretation Comments Chloride Lvl (test code = Chloride Lvl) 105 98-110 [facility] HospitalWjjetfxIQFSEZJWFR2596-65-37 12:55:00 Test Item Value Reference Range Interpretation Comments RBC X 10x6 (test code = RBC X 10x6) 4.50 3.80-5.10 [place] 852421-10-07 12:55:00 Test Item Value Reference Range Interpretation Comments CO2 (test code = CO2) 29 20-32 [place] 852421-10-07 12:55:00 Test Item Value Reference Range Interpretation Comments Calcium Lvl (test code = Calcium Lvl) 8.7 8.6-10.4 [facility]2021-10-07 12:55:00 Test Item Value Reference Range Interpretation Comments Total Protein (test code = Total 6.8 6.1-8.1 Protein) [place] 852421-10-07 12:55:00 Test Item Value Reference Range Interpretation Comments Albumin Lvl (test code = Albumin Lvl) 3.7 3.6-5.1 [place] 870041-10-07 12:55:00 Test Item Value Reference Range Interpretation Comments Hgb (test code = Hgb) 12.1 11.7-15.5 [place] [address]-10-07 12:55:00 Test Item Value Reference Range Interpretation Comments Globulin (test code = Globulin) 3.1 1.9-3.7 [place] [address]-10-07 12:55:00 Test Item Value Reference Range Interpretation Comments A/G Ratio (test code = A/G Ratio) 1.2 1.0-2.5 [place] [address]-10-07 12:55:00 Test Item Value Reference Range Interpretation Comments Bili Total (test code = Bili Total) 0.6 0.2-1.2 [place] [address]-10-07 12:55:00 Test Item Value Reference Range Interpretation Comments Alk Phos (test code = Alk Phos) 59 37-153 [place] 852421-10-07 12:55:00 Test Item Value Reference Range Interpretation Comments CO2 (test code = CO2) 29 20-32 [place] 852421-10-07 12:55:00 Test Item Value Reference Range Interpretation Comments ASPARTATE TRANSAMINASE (test code = 18 10-35 ASPARTATE TRANSAMINASE) [place] 852421-10-07 12:55:00 Test Item Value Reference Range Interpretation Comments ALANINE AMINOTRANSFERASE (test code = 23 6-29 ALANINE AMINOTRANSFERASE) [place] [address]-10-07 12:55:00 Test Item Value Reference Range Interpretation Comments WBC X 10x3 (test code = WBC X 10x3) 4.8 3.8-10.8 [place] [address]-10-07 12:55:00 Test Item Value Reference Range Interpretation Comments Hct (test code = Hct) 37.8 35.0-45.0 [place] [address]-10-07 12:55:00 Test Item Value Reference Range Interpretation Comments RBC X 10x6 (test code = RBC X 10x6) 4.50 3.80-5.10 [place] [address]-10-07 12:55:00 Test Item Value Reference Range Interpretation Comments Hgb (test code = Hgb) 12.1 11.7-15.5 [facility]CutjkolTPYIUAXCXI0677-10-12 12:55:00 Test Item Value Reference Range Interpretation Comments Hct (test code = Hct) 37.8 35.0-45.0 [place] 870041-10-07 12:55:00 Test Item Value Reference Range Interpretation Comments MCV (test code = MCV) 84.0 80.0-100.0 [facility] HospitalQjpzcypHNKRXPAQPH5243-87-35 12:55:00 Test Item Value Reference Range Interpretation Comments MCH (test code = MCH) 26.9 pg 27.0-33.0 [facility] HospitalGpgbfqfJAKHVRJVWG2886-23-43 12:55:00 Test Item Value Reference Range Interpretation Comments MCV (test code = MCV) 84.0 80.0-100.0 [place] 870041-10-07 12:55:00 Test Item Value Reference Range Interpretation Comments MCHC (test code = MCHC) 32.0 32.0-36.0 [facility] HospitalEqgwnntCVCWTMLMYA2090-36-42 12:55:00 Test Item Value Reference Range Interpretation Comments RDW (test code = RDW) 14.0 11.0-15.0 [facility] HospitalJlojfofANOAKOTOAW6718-67-91 12:55:00 Test Item Value Reference Range Interpretation Comments Platelet (test code = Platelet) 151 140-400 [facility] HospitalYaehbjzTDCHVPVJJL5770-74-55 12:55:00 Test Item Value Reference Range Interpretation Comments MCH (test code = MCH) 26.9 pg 27.0-33.0 [place] 870041-10-07 12:55:00 Test Item Value Reference Range Interpretation Comments MPV (test code = MPV) 12.1 7.5-12.5 [facility] HospitalJlftxhmNNYYAGPPGP0539-15-46 12:55:00 Test Item Value Reference Range Interpretation Comments Neutrophils # (test code = Neutrophils 9249 2362-4322 #) [facility] HospitalOtfyjzpUPWLJBSLSW6569-09-36 12:55:00 Test Item Value Reference Range Interpretation Comments Lymphocytes # (test code = Lymphocytes [phone] #) [facility] HospitalNswbbriSWPRHDOSBT2776-56-32 12:55:00 Test Item Value Reference Range Interpretation Comments Monocytes # (test code = Monocytes #) 350 200-950 [facility] HospitalVfajyxmMLXEDKIBVZ1488-08-64 12:55:00 Test Item Value Reference Range Interpretation Comments MCHC (test code = MCHC) 32.0 32.0-36.0 [facility] HospitalJfztblfJXBFILHJGK9825-12-73 12:55:00 Test Item Value Reference Range Interpretation Comments Eosinophils # (test code = Eosinophils 72 15-500 #) [facility] HospitalGkwmlvpDYBWVVNLHZ3339-05-50 12:55:00 Test Item Value Reference Range Interpretation Comments Basophils # (test code = Basophils #) 29 <=200 [facility] HospitalCxdxgcmVEDJWPJLTQ6381-86-40 12:55:00 Test Item Value Reference Range Interpretation Comments Segs (test code = Segs) 65.4 [facility] HospitalKxryhoaFCWWODOBEA7971-81-15 12:55:00 Test Item Value Reference Range Interpretation Comments Lymphocytes (test code = Lymphocytes) 25.2 [place] 870041-10-07 12:55:00 Test Item Value Reference Range Interpretation Comments RDW (test code = RDW) 14.0 11.0-15.0 [facility] HospitalMfxhfslOPNNBDGGBP8525-44-68 12:55:00 Test Item Value Reference Range Interpretation Comments Monocytes (test code = Monocytes) 7.3 [facility] HospitalXrjcechZZUMOECGUM3268-56-33 12:55:00 Test Item Value Reference Range Interpretation Comments Eosinophils (test code = Eosinophils) 1.5 [facility] HospitalCdlcnpkBKTKGMIJND5438-44-74 12:55:00 Test Item Value Reference Range Interpretation Comments Basophils (test code = Basophils) 0.6 [facility]EyvivolCYCGUBLEQA3630-08-12 12:55:00 Test Item Value Reference Range Interpretation Comments Sed Rate (test code = Sed Rate) 22 [facility] HospitalHswmkctEFNGVSULGH1782-62-77 12:55:00 Test Item Value Reference Range Interpretation Comments Platelet (test code = Platelet) 151 140-400 [facility]XsezltzDHIQTBBAPM9137-87-06 12:55:00 Test Item Value Reference Range Interpretation Comments C-REACTIVE PROTEIN (test code = 2.9 C-REACTIVE PROTEIN) [facility]2021-10-07 12:55:00 Test Item Value Reference Range Interpretation Comments Vitamin B12 Lvl (test code = Vitamin 672 342-6101 B12 Lvl) [facility]2021-10-07 12:55:00 Test Item Value Reference Range Interpretation Comments Glucose Lvl (test code = Glucose Lvl) 151 65-99 [place] [address]-10-07 12:55:00 Test Item Value Reference Range Interpretation Comments MPV (test code = MPV) 12.1 7.5-12.5 [facility]2021-10-07 12:55:00 Test Item Value Reference Range Interpretation Comments BUN (test code = BUN) 17 7-25 [place] 852421-10-07 12:55:00 Test Item Value Reference Range Interpretation Comments Creatinine Lvl (test code = Creatinine 0.49 0.50-1.05 Lvl) [place] 852421-10-07 12:55:00 Test Item Value Reference Range Interpretation Comments eGFR NON-AFR. BARBADIAN (test code = 107 eGFR NON-AFR. BARBADIAN) [place] 870041-10-07 12:55:00 Test Item Value Reference Range Interpretation Comments Neutrophils # (test code = Neutrophils 3139 3999-0493 #) [place] 852421-10-07 12:55:00 Test Item Value Reference Range Interpretation Comments eGFR (test code = eGFR 124 ) [place] 852421-10-07 12:55:00 Test Item Value Reference Range Interpretation Comments B/C Ratio (test code = B/C Ratio) 35 6-22 [place] 852421-10-07 12:55:00 Test Item Value Reference Range Interpretation Comments Sodium Lvl (test code = Sodium Lvl) 140 135-146 [place] 870041-10-07 12:55:00 Test Item Value Reference Range Interpretation Comments Lymphocytes # (test code = Lymphocytes 7850 015-1174 #) [place] 852421-10-07 12:55:00 Test Item Value Reference Range Interpretation Comments Potassium Lvl (test code = Potassium 4.0 3.5-5.3 Lvl) [place] 852421-10-07 12:55:00 Test Item Value Reference Range Interpretation Comments Chloride Lvl (test code = Chloride Lvl) 105 98-110 [place] 852421-10-07 12:55:00 Test Item Value Reference Range Interpretation Comments CO2 (test code = CO2) 29 20-32 [place] 870041-10-07 12:55:00 Test Item Value Reference Range Interpretation Comments Monocytes # (test code = Monocytes #) 350 200-950 [facility]2021-10-07 12:55:00 Test Item Value Reference Range Interpretation Comments Calcium Lvl (test code = Calcium Lvl) 8.7 8.6-10.4 [place] 852421-10-07 12:55:00 Test Item Value Reference Range Interpretation Comments Total Protein (test code = Total 6.8 6.1-8.1 Protein) [place] 852421-10-07 12:55:00 Test Item Value Reference Range Interpretation Comments Albumin Lvl (test code = Albumin Lvl) 3.7 3.6-5.1 [place] 852421-10-07 12:55:00 Test Item Value Reference Range Interpretation Comments Calcium Lvl (test code = Calcium Lvl) 8.7 8.6-10.4 [place] 852421-10-07 12:55:00 Test Item Value Reference Range Interpretation Comments Globulin (test code = Globulin) 3.1 1.9-3.7 [place] 852421-10-07 12:55:00 Test Item Value Reference Range Interpretation Comments A/G Ratio (test code = A/G Ratio) 1.2 1.0-2.5 [place] 852421-10-07 12:55:00 Test Item Value Reference Range Interpretation Comments Bili Total (test code = Bili Total) 0.6 0.2-1.2 [place] 870041-10-07 12:55:00 Test Item Value Reference Range Interpretation Comments Eosinophils # (test code = Eosinophils 72 15-500 #) [place] 852421-10-07 12:55:00 Test Item Value Reference Range Interpretation Comments Alk Phos (test code = Alk Phos) 59 37-153 [place] 852421-10-07 12:55:00 Test Item Value Reference Range Interpretation Comments ASPARTATE TRANSAMINASE (test code = 18 10-35 ASPARTATE TRANSAMINASE) [place] 852421-10-07 12:55:00 Test Item Value Reference Range Interpretation Comments ALANINE AMINOTRANSFERASE (test code = 23 6-29 ALANINE AMINOTRANSFERASE) [place] 870041-10-07 12:55:00 Test Item Value Reference Range Interpretation Comments Basophils # (test code = Basophils #) 29 <=200 [facility] HospitalFbaanxaJAXCWQSYTX8740-37-35 12:55:00 Test Item Value Reference Range Interpretation Comments WBC X 10x3 (test code = WBC X 10x3) 4.8 3.8-10.8 [place] 870041-10-07 12:55:00 Test Item Value Reference Range Interpretation Comments RBC X 10x6 (test code = RBC X 10x6) 4.50 3.80-5.10 [facility] HospitalYnotmmeZMIINUTKAD1875-86-06 12:55:00 Test Item Value Reference Range Interpretation Comments Hgb (test code = Hgb) 12.1 11.7-15.5 [facility] HospitalSqucikdHBFADCPYWL4336-64-04 12:55:00 Test Item Value Reference Range Interpretation Comments Segs (test code = Segs) 65.4 [facility]2021-10-07 12:55:00 Test Item Value Reference Range Interpretation Comments Vitamin B12 Lvl (test code = Vitamin 508 749-0935 B12 Lvl) [facility] HospitalUxokejhNFRFEUFVHV1786-65-32 12:55:00 Test Item Value Reference Range Interpretation Comments Hct (test code = Hct) 37.8 35.0-45.0 [facility] HospitalWjjqlvbYZRNXWPFLM6334-57-98 12:55:00 Test Item Value Reference Range Interpretation Comments MCV (test code = MCV) 84.0 80.0-100.0 [place] 870041-10-07 12:55:00 Test Item Value Reference Range Interpretation Comments Lymphocytes (test code = Lymphocytes) 25.2 [place] 870041-10-07 12:55:00 Test Item Value Reference Range Interpretation Comments MCH (test code = MCH) 26.9 pg 27.0-33.0 [facility] HospitalIhrsfzfCTBSKZZFJO7134-66-18 12:55:00 Test Item Value Reference Range Interpretation Comments MCHC (test code = MCHC) 32.0 32.0-36.0 [place] 870041-10-07 12:55:00 Test Item Value Reference Range Interpretation Comments RDW (test code = RDW) 14.0 11.0-15.0 [place] 870041-10-07 12:55:00 Test Item Value Reference Range Interpretation Comments Monocytes (test code = Monocytes) 7.3 [place] 870041-10-07 12:55:00 Test Item Value Reference Range Interpretation Comments Platelet (test code = Platelet) 151 140-400 [facility] HospitalRmzexmcICNOOKHETR7377-33-93 12:55:00 Test Item Value Reference Range Interpretation Comments MPV (test code = MPV) 12.1 7.5-12.5 [place] 870041-10-07 12:55:00 Test Item Value Reference Range Interpretation Comments Neutrophils # (test code = Neutrophils 3139 5445-4059 #) [facility] HospitalLyxangqCCKJEQENUF4113-46-62 12:55:00 Test Item Value Reference Range Interpretation Comments Eosinophils (test code = Eosinophils) 1.5 [facility] HospitalDohcgygHMQAPLWWKE3595-91-14 12:55:00 Test Item Value Reference Range Interpretation Comments Lymphocytes # (test code = Lymphocytes 4536 645-1334 #) [facility] HospitalHzekbmpLERKFQCWZY0493-12-78 12:55:00 Test Item Value Reference Range Interpretation Comments Monocytes # (test code = Monocytes #) 350 200-950 [facility]2021-10-07 12:55:00 Test Item Value Reference Range Interpretation Comments Glucose Lvl (test code = Glucose Lvl) 151 65-99 [facility] HospitalEqsbpfsVPTECCOINY0404-68-73 12:55:00 Test Item Value Reference Range Interpretation Comments Basophils (test code = Basophils) 0.6 [facility] HospitalNretwgbWWAHLATVZZ2703-92-76 12:55:00 Test Item Value Reference Range Interpretation Comments Eosinophils # (test code = Eosinophils 72 15-500 #) [facility] HospitalJqbhsvlWWYWXCFBXK6737-79-77 12:55:00 Test Item Value Reference Range Interpretation Comments Basophils # (test code = Basophils #) 29 <=200 [place] 870041-10-07 12:55:00 Test Item Value Reference Range Interpretation Comments Segs (test code = Segs) 65.4 [place] 870041-10-07 12:55:00 Test Item Value Reference Range Interpretation Comments Sed Rate (test code = Sed Rate) 22 [place] 870041-10-07 12:55:00 Test Item Value Reference Range Interpretation Comments Lymphocytes (test code = Lymphocytes) 25.2 [place] 870041-10-07 12:55:00 Test Item Value Reference Range Interpretation Comments Monocytes (test code = Monocytes) 7.3 [place] 870041-10-07 12:55:00 Test Item Value Reference Range Interpretation Comments Eosinophils (test code = Eosinophils) 1.5 [place] 015591-10-07 12:55:00 Test Item Value Reference Range Interpretation Comments C-REACTIVE PROTEIN (test code = 2.9 C-REACTIVE PROTEIN) [facility] HospitalQayponoICGDHDIMNS8000-30-07 12:55:00 Test Item Value Reference Range Interpretation Comments Basophils (test code = Basophils) 0.6 [place] 870041-10-07 12:55:00 Test Item Value Reference Range Interpretation Comments Sed Rate (test code = Sed Rate) 22 [place] [address]-10-07 12:55:00 Test Item Value Reference Range Interpretation Comments C-REACTIVE PROTEIN (test code = 2.9 C-REACTIVE PROTEIN) [facility]2021-10-07 12:55:00 Test Item Value Reference Range Interpretation Comments Total Protein (test code = Total 6.8 6.1-8.1 Protein) [facility]2021-10-07 12:55:00 Test Item Value Reference Range Interpretation Comments BUN (test code = BUN) 12-10 [facility]2021-10-07 12:55:00 Test Item Value Reference Range Interpretation Comments Vitamin B12 Lvl (test code = Vitamin 388 220-6783 B12 Lvl) [facility]2021-10-07 12:55:00 Test Item Value Reference Range Interpretation Comments Glucose Lvl (test code = Glucose Lvl) 151 65-99 [facility]2021-10-07 12:55:00 Test Item Value Reference Range Interpretation Comments Vitamin B12 Lvl (test code = Vitamin 969 756-2057 B12 Lvl) [place] 852421-10-07 12:55:00 Test Item Value Reference Range Interpretation Comments BUN (test code = BUN) 12-10 [place] 852421-10-07 12:55:00 Test Item Value Reference Range Interpretation Comments Glucose Lvl (test code = Glucose Lvl) 151 65-99 [facility]2021-10-07 12:55:00 Test Item Value Reference Range Interpretation Comments BUN (test code = BUN) 12-10 [place] 852421-10-07 12:55:00 Test Item Value Reference Range Interpretation Comments Albumin Lvl (test code = Albumin Lvl) 3.7 3.6-5.1 [place] 852421-10-07 12:55:00 Test Item Value Reference Range Interpretation Comments Creatinine Lvl (test code = Creatinine 0.49 0.50-1.05 Lvl) [facility]2021-10-07 12:55:00 Test Item Value Reference Range Interpretation Comments eGFR NON-AFR. BARBADIAN (test code = 107 eGFR NON-AFR. BARBADIAN) [place] 852421-10-07 12:55:00 Test Item Value Reference Range Interpretation Comments eGFR (test code = eGFR 124 ) [place] 852421-10-07 12:55:00 Test Item Value Reference Range Interpretation Comments B/C Ratio (test code = B/C Ratio) 35 6-22 [place] 852421-10-07 12:55:00 Test Item Value Reference Range Interpretation Comments Sodium Lvl (test code = Sodium Lvl) 140 135-146 [place] 852421-10-07 12:55:00 Test Item Value Reference Range Interpretation Comments Potassium Lvl (test code = Potassium 4.0 3.5-5.3 Lvl) [facility]2021-10-07 12:55:00 Test Item Value Reference Range Interpretation Comments Chloride Lvl (test code = Chloride Lvl) 105 98-110 [facility]2021-10-07 12:55:00 Test Item Value Reference Range Interpretation Comments CO2 (test code = CO2) 29 20-32 [place] 852421-10-07 12:55:00 Test Item Value Reference Range Interpretation Comments Calcium Lvl (test code = Calcium Lvl) 8.7 8.6-10.4 [place] 852421-10-07 12:55:00 Test Item Value Reference Range Interpretation Comments Total Protein (test code = Total 6.8 6.1-8.1 Protein) [place] 852421-10-07 12:55:00 Test Item Value Reference Range Interpretation Comments Globulin (test code = Globulin) 3.1 1.9-3.7 [place] 852421-10-07 12:55:00 Test Item Value Reference Range Interpretation Comments Albumin Lvl (test code = Albumin Lvl) 3.7 3.6-5.1 [place] 852421-10-07 12:55:00 Test Item Value Reference Range Interpretation Comments Globulin (test code = Globulin) 3.1 1.9-3.7 [place] 852421-10-07 12:55:00 Test Item Value Reference Range Interpretation Comments A/G Ratio (test code = A/G Ratio) 1.2 1.0-2.5 [place] 852421-10-07 12:55:00 Test Item Value Reference Range Interpretation Comments Bili Total (test code = Bili Total) 0.6 0.2-1.2 [place] [address]-10-07 12:55:00 Test Item Value Reference Range Interpretation Comments Alk Phos (test code = Alk Phos) 59 37-153 [place] 852421-10-07 12:55:00 Test Item Value Reference Range Interpretation Comments ASPARTATE TRANSAMINASE (test code = 18 10-35 ASPARTATE TRANSAMINASE) [place] [address]-10-07 12:55:00 Test Item Value Reference Range Interpretation Comments ALANINE AMINOTRANSFERASE (test code = 23 6-29 ALANINE AMINOTRANSFERASE) [place] 870041-10-07 12:55:00 Test Item Value Reference Range Interpretation Comments WBC X 10x3 (test code = WBC X 10x3) 4.8 3.8-10.8 [place] 870041-10-07 12:55:00 Test Item Value Reference Range Interpretation Comments RBC X 10x6 (test code = RBC X 10x6) 4.50 3.80-5.10 [place] 870041-10-07 12:55:00 Test Item Value Reference Range Interpretation Comments Hgb (test code = Hgb) 12.1 11.7-15.5 [place] 852421-10-07 12:55:00 Test Item Value Reference Range Interpretation Comments A/G Ratio (test code = A/G Ratio) 1.2 1.0-2.5 [place] 870041-10-07 12:55:00 Test Item Value Reference Range Interpretation Comments Hct (test code = Hct) 37.8 35.0-45.0 [place] 870041-10-07 12:55:00 Test Item Value Reference Range Interpretation Comments MCV (test code = MCV) 84.0 80.0-100.0 [place] [address]-10-07 12:55:00 Test Item Value Reference Range Interpretation Comments MCH (test code = MCH) 26.9 pg 27.0-33.0 [facility] HospitalBizswvhLPJSLNYNRX5733-94-98 12:55:00 Test Item Value Reference Range Interpretation Comments MCHC (test code = MCHC) 32.0 32.0-36.0 [facility] HospitalQdnftjzEFYTXPPIKU8226-81-03 12:55:00 Test Item Value Reference Range Interpretation Comments RDW (test code = RDW) 14.0 11.0-15.0 [facility] HospitalHmcwweeWMBEULEDCB7319-92-38 12:55:00 Test Item Value Reference Range Interpretation Comments Platelet (test code = Platelet) 151 140-400 [facility] HospitalVcyefgpJEFLBGZQEN1218-85-22 12:55:00 Test Item Value Reference Range Interpretation Comments MPV (test code = MPV) 12.1 7.5-12.5 [place] 870041-10-07 12:55:00 Test Item Value Reference Range Interpretation Comments Neutrophils # (test code = Neutrophils 3139 0477-7334 #) [facility] HospitalQokutdpBUEQDGQJHG1263-15-13 12:55:00 Test Item Value Reference Range Interpretation Comments Lymphocytes # (test code = Lymphocytes 6388 249-8594 #) [facility] HospitalIipgrrzZEBLYKPDAV8624-68-92 12:55:00 Test Item Value Reference Range Interpretation Comments Monocytes # (test code = Monocytes #) 350 200-950 [facility]2021-10-07 12:55:00 Test Item Value Reference Range Interpretation Comments Bili Total (test code = Bili Total) 0.6 0.2-1.2 [facility] HospitalKtjsilmWYBZZMKHSJ3922-94-91 12:55:00 Test Item Value Reference Range Interpretation Comments Eosinophils # (test code = Eosinophils 72 15-500 #) [facility] HospitalOoxzlhzXJONJNUDUJ8389-06-72 12:55:00 Test Item Value Reference Range Interpretation Comments Basophils # (test code = Basophils #) 29 <=200 [facility] HospitalEzdshzmCVMCBEZGZW7842-40-75 12:55:00 Test Item Value Reference Range Interpretation Comments Segs (test code = Segs) 65.4 [facility] HospitalQvkchxcCDQYUYEWOZ0303-11-19 12:55:00 Test Item Value Reference Range Interpretation Comments Lymphocytes (test code = Lymphocytes) 25.2 [place] 870041-10-07 12:55:00 Test Item Value Reference Range Interpretation Comments Monocytes (test code = Monocytes) 7.3 [place] 870041-10-07 12:55:00 Test Item Value Reference Range Interpretation Comments Eosinophils (test code = Eosinophils) 1.5 [place] 870041-10-07 12:55:00 Test Item Value Reference Range Interpretation Comments Basophils (test code = Basophils) 0.6 [place] [address]-10-07 12:55:00 Test Item Value Reference Range Interpretation Comments Sed Rate (test code = Sed Rate) 22 [facility]villeCbuvyjlVOAUTLQVOU2711-89-46 12:55:00 Test Item Value Reference Range Interpretation Comments C-REACTIVE PROTEIN (test code = 2.9 C-REACTIVE PROTEIN) [facility]2021-10-07 12:55:00 Test Item Value Reference Range Interpretation Comments Alk Phos (test code = Alk Phos) 59 37-153 [facility]2021-10-07 12:55:00 Test Item Value Reference Range Interpretation Comments Vitamin B12 Lvl (test code = Vitamin 424 713-1165 B12 Lvl) [facility]2021-10-07 12:55:00 Test Item Value Reference Range Interpretation Comments Glucose Lvl (test code = Glucose Lvl) 151 65-99 [facility]2021-10-07 12:55:00 Test Item Value Reference Range Interpretation Comments BUN (test code = BUN) 17 7-25 [place] 852421-10-07 12:55:00 Test Item Value Reference Range Interpretation Comments ASPARTATE TRANSAMINASE (test code = 18 10-35 ASPARTATE TRANSAMINASE) [place] 852421-10-07 12:55:00 Test Item Value Reference Range Interpretation Comments Creatinine Lvl (test code = Creatinine 0.49 0.50-1.05 Lvl) [place] 852421-10-07 12:55:00 Test Item Value Reference Range Interpretation Comments eGFR NON-AFR. BARBADIAN (test code = 107 eGFR NON-AFR. BARBADIAN) [place] 852421-10-07 12:55:00 Test Item Value Reference Range Interpretation Comments eGFR (test code = eGFR 124 ) [place] 852421-10-07 12:55:00 Test Item Value Reference Range Interpretation Comments B/C Ratio (test code = B/C Ratio) 35 6-22 [facility]2021-10-07 12:55:00 Test Item Value Reference Range Interpretation Comments Sodium Lvl (test code = Sodium Lvl) 140 135-146 [facility]2021-10-07 12:55:00 Test Item Value Reference Range Interpretation Comments Potassium Lvl (test code = Potassium 4.0 3.5-5.3 Lvl) [facility]2021-10-07 12:55:00 Test Item Value Reference Range Interpretation Comments Chloride Lvl (test code = Chloride Lvl) 105 98-110 [facility]2021-10-07 12:55:00 Test Item Value Reference Range Interpretation Comments CO2 (test code = CO2) 29 20-32 [facility]2021-10-07 12:55:00 Test Item Value Reference Range Interpretation Comments Calcium Lvl (test code = Calcium Lvl) 8.7 8.6-10.4 [place] 852421-10-07 12:55:00 Test Item Value Reference Range Interpretation Comments Total Protein (test code = Total 6.8 6.1-8.1 Protein) [facility]2021-10-07 12:55:00 Test Item Value Reference Range Interpretation Comments ALANINE AMINOTRANSFERASE (test code = 23 6-29 ALANINE AMINOTRANSFERASE) [facility]2021-10-07 12:55:00 Test Item Value Reference Range Interpretation Comments Albumin Lvl (test code = Albumin Lvl) 3.7 3.6-5.1 [place] 852421-10-07 12:55:00 Test Item Value Reference Range Interpretation Comments Globulin (test code = Globulin) 3.1 1.9-3.7 [place] 852421-10-07 12:55:00 Test Item Value Reference Range Interpretation Comments A/G Ratio (test code = A/G Ratio) 1.2 1.0-2.5 [place] 852421-10-07 12:55:00 Test Item Value Reference Range Interpretation Comments Bili Total (test code = Bili Total) 0.6 0.2-1.2 [facility]2021-10-07 12:55:00 Test Item Value Reference Range Interpretation Comments Alk Phos (test code = Alk Phos) 59 37-153 [place] 852421-10-07 12:55:00 Test Item Value Reference Range Interpretation Comments ASPARTATE TRANSAMINASE (test code = 18 10-35 ASPARTATE TRANSAMINASE) [facility]2021-10-07 12:55:00 Test Item Value Reference Range Interpretation Comments ALANINE AMINOTRANSFERASE (test code = 23 6-29 ALANINE AMINOTRANSFERASE) [place] 870041-10-07 12:55:00 Test Item Value Reference Range Interpretation Comments WBC X 10x3 (test code = WBC X 10x3) 4.8 3.8-10.8 [place] 870041-10-07 12:55:00 Test Item Value Reference Range Interpretation Comments RBC X 10x6 (test code = RBC X 10x6) 4.50 3.80-5.10 [place] 870041-10-07 12:55:00 Test Item Value Reference Range Interpretation Comments Hgb (test code = Hgb) 12.1 11.7-15.5 [place] [address]-10-07 12:55:00 Test Item Value Reference Range Interpretation Comments WBC X 10x3 (test code = WBC X 10x3) 4.8 3.8-10.8 [place] 870041-10-07 12:55:00 Test Item Value Reference Range Interpretation Comments Hct (test code = Hct) 37.8 35.0-45.0 [place] 870041-10-07 12:55:00 Test Item Value Reference Range Interpretation Comments MCV (test code = MCV) 84.0 80.0-100.0 [place] [address]-10-07 12:55:00 Test Item Value Reference Range Interpretation Comments MCH (test code = MCH) 26.9 pg 27.0-33.0 [place] [address]-10-07 12:55:00 Test Item Value Reference Range Interpretation Comments MCHC (test code = MCHC) 32.0 32.0-36.0 [place] 870041-10-07 12:55:00 Test Item Value Reference Range Interpretation Comments RDW (test code = RDW) 14.0 11.0-15.0 [place] 870041-10-07 12:55:00 Test Item Value Reference Range Interpretation Comments Platelet (test code = Platelet) 151 140-400 [place] 870041-10-07 12:55:00 Test Item Value Reference Range Interpretation Comments MPV (test code = MPV) 12.1 7.5-12.5 [facility] HospitalOakgwbhGDFWXULOGN5287-28-46 12:55:00 Test Item Value Reference Range Interpretation Comments Neutrophils # (test code = Neutrophils 3139 0426-0597 #) [facility] HospitalKvrpqcdCNWHEEUNUX1267-83-34 12:55:00 Test Item Value Reference Range Interpretation Comments Lymphocytes # (test code = Lymphocytes 3390 210-1546 #) [facility] HospitalQlrinxoVFXPXTMZMM9177-60-74 12:55:00 Test Item Value Reference Range Interpretation Comments Monocytes # (test code = Monocytes #) 350 200-950 [facility] HospitalOvpojciUXJXVCFEZT0932-47-98 12:55:00 Test Item Value Reference Range Interpretation Comments RBC X 10x6 (test code = RBC X 10x6) 4.50 3.80-5.10 [facility] HospitalTfcwgurVENWGISUQA7096-86-69 12:55:00 Test Item Value Reference Range Interpretation Comments Eosinophils # (test code = Eosinophils 72 15-500 #) [facility] HospitalSgwekhtUMYYDILTUM2446-47-70 12:55:00 Test Item Value Reference Range Interpretation Comments Basophils # (test code = Basophils #) 29 <=200 [facility] HospitalRynzboqRGHWTIDRMI6587-88-64 12:55:00 Test Item Value Reference Range Interpretation Comments Segs (test code = Segs) 65.4 [facility] HospitalPetbzrwTEUCLZHODS8152-53-53 12:55:00 Test Item Value Reference Range Interpretation Comments Lymphocytes (test code = Lymphocytes) 25.2 [facility] HospitalRhfwdnxCWLKJGMTVU0594-80-36 12:55:00 Test Item Value Reference Range Interpretation Comments Monocytes (test code = Monocytes) 7.3 [facility] HospitalJylpmqbKPRDNHWASO0202-57-08 12:55:00 Test Item Value Reference Range Interpretation Comments Eosinophils (test code = Eosinophils) 1.5 [facility] HospitalMimkidzZJJMJCNXMM4960-09-42 12:55:00 Test Item Value Reference Range Interpretation Comments Basophils (test code = Basophils) 0.6 [facility] HospitalTlgiakpIOZOSAEYIE0726-47-48 12:55:00 Test Item Value Reference Range Interpretation Comments Sed Rate (test code = Sed Rate) 22 [place] 015591-10-07 12:55:00 Test Item Value Reference Range Interpretation Comments C-REACTIVE PROTEIN (test code = 2.9 C-REACTIVE PROTEIN) [place] 870041-10-07 12:55:00 Test Item Value Reference Range Interpretation Comments Hgb (test code = Hgb) 12.1 11.7-15.5 [facility]2021-10-07 12:55:00 Test Item Value Reference Range Interpretation Comments Vitamin B12 Lvl (test code = Vitamin 813 752-1643 B12 Lvl) [place] 852421-10-07 12:55:00 Test Item Value Reference Range Interpretation Comments Glucose Lvl (test code = Glucose Lvl) 151 65-99 [place] 852421-10-07 12:55:00 Test Item Value Reference Range Interpretation Comments BUN (test code = BUN) 17 7-25 [place] 870041-10-07 12:55:00 Test Item Value Reference Range Interpretation Comments Hct (test code = Hct) 37.8 35.0-45.0 [place] 852421-10-07 12:55:00 Test Item Value Reference Range Interpretation Comments Creatinine Lvl (test code = Creatinine 0.49 0.50-1.05 Lvl) [place] 852421-10-07 12:55:00 Test Item Value Reference Range Interpretation Comments eGFR NON-AFR. BARBADIAN (test code = 107 eGFR NON-AFR. BARBADIAN) [place] 852421-10-07 12:55:00 Test Item Value Reference Range Interpretation Comments eGFR (test code = eGFR 124 ) [place] 852421-10-07 12:55:00 Test Item Value Reference Range Interpretation Comments B/C Ratio (test code = B/C Ratio) 35 6-22 [place] 852421-10-07 12:55:00 Test Item Value Reference Range Interpretation Comments Sodium Lvl (test code = Sodium Lvl) 140 135-146 [place] 852421-10-07 12:55:00 Test Item Value Reference Range Interpretation Comments Potassium Lvl (test code = Potassium 4.0 3.5-5.3 Lvl) [place] 852421-10-07 12:55:00 Test Item Value Reference Range Interpretation Comments Chloride Lvl (test code = Chloride Lvl) 105 98-110 [place] 852421-10-07 12:55:00 Test Item Value Reference Range Interpretation Comments CO2 (test code = CO2) 29 20-32 [place] 852421-10-07 12:55:00 Test Item Value Reference Range Interpretation Comments Calcium Lvl (test code = Calcium Lvl) 8.7 8.6-10.4 [place] 852421-10-07 12:55:00 Test Item Value Reference Range Interpretation Comments Total Protein (test code = Total 6.8 6.1-8.1 Protein) [place] 870041-10-07 12:55:00 Test Item Value Reference Range Interpretation Comments MCV (test code = MCV) 84.0 80.0-100.0 [place] 852421-10-07 12:55:00 Test Item Value Reference Range Interpretation Comments Albumin Lvl (test code = Albumin Lvl) 3.7 3.6-5.1 [place] 852421-10-07 12:55:00 Test Item Value Reference Range Interpretation Comments Globulin (test code = Globulin) 3.1 1.9-3.7 [place] 852421-10-07 12:55:00 Test Item Value Reference Range Interpretation Comments A/G Ratio (test code = A/G Ratio) 1.2 1.0-2.5 [place] 852421-10-07 12:55:00 Test Item Value Reference Range Interpretation Comments Bili Total (test code = Bili Total) 0.6 0.2-1.2 [place] 852421-10-07 12:55:00 Test Item Value Reference Range Interpretation Comments Alk Phos (test code = Alk Phos) 59 37-153 [place] 852421-10-07 12:55:00 Test Item Value Reference Range Interpretation Comments ASPARTATE TRANSAMINASE (test code = 18 10-35 ASPARTATE TRANSAMINASE) [place] 852421-10-07 12:55:00 Test Item Value Reference Range Interpretation Comments ALANINE AMINOTRANSFERASE (test code = 23 6-29 ALANINE AMINOTRANSFERASE) [facility]acwljxZSTMAFXZVH1283-60-79 12:55:00 Test Item Value Reference Range Interpretation Comments WBC X 10x3 (test code = WBC X 10x3) 4.8 3.8-10.8 [place] 870041-10-07 12:55:00 Test Item Value Reference Range Interpretation Comments RBC X 10x6 (test code = RBC X 10x6) 4.50 3.80-5.10 [facility] HospitalCochofoCNRKAUFMSQ9838-73-49 12:55:00 Test Item Value Reference Range Interpretation Comments Hgb (test code = Hgb) 12.1 11.7-15.5 [facility] HospitalFzgazrzRXWFRIYDFX6621-96-90 12:55:00 Test Item Value Reference Range Interpretation Comments MCH (test code = MCH) 26.9 pg 27.0-33.0 [facility] HospitalMhtfjedRFYBDDBWCZ9539-99-20 12:55:00 Test Item Value Reference Range Interpretation Comments Hct (test code = Hct) 37.8 35.0-45.0 [facility] HospitalEenyafdXJIHDWJLAO0731-93-91 12:55:00 Test Item Value Reference Range Interpretation Comments MCV (test code = MCV) 84.0 80.0-100.0 [facility] HospitalNcxfojmYWCYLNHEAJ7369-96-04 12:55:00 Test Item Value Reference Range Interpretation Comments MCH (test code = MCH) 26.9 pg 27.0-33.0 [facility] HospitalFvfhtgnMYYOQGCPYB1470-56-41 12:55:00 Test Item Value Reference Range Interpretation Comments MCHC (test code = MCHC) 32.0 32.0-36.0 [facility] HospitalOvsdsbgOQWTUVGNQJ2668-40-06 12:55:00 Test Item Value Reference Range Interpretation Comments RDW (test code = RDW) 14.0 11.0-15.0 [facility] HospitalPxepgoiAIQXQHFWTM1987-82-95 12:55:00 Test Item Value Reference Range Interpretation Comments Platelet (test code = Platelet) 151 140-400 [facility] HospitalVjtgnqtUGDRONFLAX0621-17-59 12:55:00 Test Item Value Reference Range Interpretation Comments MPV (test code = MPV) 12.1 7.5-12.5 [facility] HospitalZfcpevmVVIXSOCHXU0678-87-40 12:55:00 Test Item Value Reference Range Interpretation Comments Neutrophils # (test code = Neutrophils 3139 7968-5203 #) [facility] HospitalZmbsdezXLZKERCTSX2428-91-20 12:55:00 Test Item Value Reference Range Interpretation Comments Lymphocytes # (test code = Lymphocytes 5860 264-7033 #) [facility] HospitalOypfbokDHCFVTGPNW3228-68-17 12:55:00 Test Item Value Reference Range Interpretation Comments Monocytes # (test code = Monocytes #) 350 200-950 [facility] HospitalRvshijgQKMMZTCCLX7631-77-36 12:55:00 Test Item Value Reference Range Interpretation Comments MCHC (test code = MCHC) 32.0 32.0-36.0 [facility] HospitalKvyzjcjNRRAQGIHKW9654-30-30 12:55:00 Test Item Value Reference Range Interpretation Comments Eosinophils # (test code = Eosinophils 72 15-500 #) [facility] HospitalIapcctoEVYTPGWVZD2779-84-45 12:55:00 Test Item Value Reference Range Interpretation Comments Basophils # (test code = Basophils #) 29 <=200 [facility] HospitalWpeerazHFVUDLOXFH9928-29-71 12:55:00 Test Item Value Reference Range Interpretation Comments Segs (test code = Segs) 65.4 [facility] HospitalCsnfzmzFJSLMMDPBD0125-64-37 12:55:00 Test Item Value Reference Range Interpretation Comments Lymphocytes (test code = Lymphocytes) 25.2 [facility] HospitalFnhjwevBKEHCTZZDV9995-35-71 12:55:00 Test Item Value Reference Range Interpretation Comments Monocytes (test code = Monocytes) 7.3 [facility] HospitalFcafxqsNOXDQBEZWX4940-77-33 12:55:00 Test Item Value Reference Range Interpretation Comments Eosinophils (test code = Eosinophils) 1.5 [facility] HospitalBwskzpzEGBJDPLTID8931-37-18 12:55:00 Test Item Value Reference Range Interpretation Comments Basophils (test code = Basophils) 0.6 [facility] HospitalJtvosqeFWQNGVGTFP2598-01-55 12:55:00 Test Item Value Reference Range Interpretation Comments Sed Rate (test code = Sed Rate) 22 [facility]XzsieoxADEULODEHJ6254-62-74 12:55:00 Test Item Value Reference Range Interpretation Comments C-REACTIVE PROTEIN (test code = 2.9 C-REACTIVE PROTEIN) [facility] HospitalWyfuyuyAEIWOJMPQW2888-71-49 12:55:00 Test Item Value Reference Range Interpretation Comments RDW (test code = RDW) 14.0 11.0-15.0 [facility]2021-10-07 12:55:00 Test Item Value Reference Range Interpretation Comments Vitamin B12 Lvl (test code = Vitamin 845 647-8371 B12 Lvl) [facility]2021-10-07 12:55:00 Test Item Value Reference Range Interpretation Comments Glucose Lvl (test code = Glucose Lvl) 151 65-99 [facility]2021-10-07 12:55:00 Test Item Value Reference Range Interpretation Comments BUN (test code = BUN) 17 7-25 [place] 870041-10-07 12:55:00 Test Item Value Reference Range Interpretation Comments Platelet (test code = Platelet) 151 140-400 [place] 852421-10-07 12:55:00 Test Item Value Reference Range Interpretation Comments Creatinine Lvl (test code = Creatinine 0.49 0.50-1.05 Lvl) [place] 852421-10-07 12:55:00 Test Item Value Reference Range Interpretation Comments eGFR NON-AFR. BARBADIAN (test code = 107 eGFR NON-AFR. BARBADIAN) [place] 852421-10-07 12:55:00 Test Item Value Reference Range Interpretation Comments eGFR (test code = eGFR 124 ) [place] 852421-10-07 12:55:00 Test Item Value Reference Range Interpretation Comments B/C Ratio (test code = B/C Ratio) 35 6-22 [place] 852421-10-07 12:55:00 Test Item Value Reference Range Interpretation Comments Sodium Lvl (test code = Sodium Lvl) 140 135-146 [place] 852421-10-07 12:55:00 Test Item Value Reference Range Interpretation Comments Potassium Lvl (test code = Potassium 4.0 3.5-5.3 Lvl) [facility]2021-10-07 12:55:00 Test Item Value Reference Range Interpretation Comments Chloride Lvl (test code = Chloride Lvl) 105 98-110 [place] 852421-10-07 12:55:00 Test Item Value Reference Range Interpretation Comments CO2 (test code = CO2) 29 20-32 [place] 852421-10-07 12:55:00 Test Item Value Reference Range Interpretation Comments Calcium Lvl (test code = Calcium Lvl) 8.7 8.6-10.4 [place] 852421-10-07 12:55:00 Test Item Value Reference Range Interpretation Comments Total Protein (test code = Total 6.8 6.1-8.1 Protein) [facility] HospitalSxpcmftBHHLRQYLJI7201-43-49 12:55:00 Test Item Value Reference Range Interpretation Comments MPV (test code = MPV) 12.1 7.5-12.5 [place] 852421-10-07 12:55:00 Test Item Value Reference Range Interpretation Comments Albumin Lvl (test code = Albumin Lvl) 3.7 3.6-5.1 [place] 852421-10-07 12:55:00 Test Item Value Reference Range Interpretation Comments Globulin (test code = Globulin) 3.1 1.9-3.7 [place] 852421-10-07 12:55:00 Test Item Value Reference Range Interpretation Comments A/G Ratio (test code = A/G Ratio) 1.2 1.0-2.5 [place] 852421-10-07 12:55:00 Test Item Value Reference Range Interpretation Comments Bili Total (test code = Bili Total) 0.6 0.2-1.2 [place] 852421-10-07 12:55:00 Test Item Value Reference Range Interpretation Comments Alk Phos (test code = Alk Phos) 59 37-153 [place] 852421-10-07 12:55:00 Test Item Value Reference Range Interpretation Comments ASPARTATE TRANSAMINASE (test code = 18 10-35 ASPARTATE TRANSAMINASE) [place] 852421-10-07 12:55:00 Test Item Value Reference Range Interpretation Comments ALANINE AMINOTRANSFERASE (test code = 23 6-29 ALANINE AMINOTRANSFERASE) [place] 870041-10-07 12:55:00 Test Item Value Reference Range Interpretation Comments WBC X 10x3 (test code = WBC X 10x3) 4.8 3.8-10.8 [place] 870041-10-07 12:55:00 Test Item Value Reference Range Interpretation Comments RBC X 10x6 (test code = RBC X 10x6) 4.50 3.80-5.10 [place] 870041-10-07 12:55:00 Test Item Value Reference Range Interpretation Comments Hgb (test code = Hgb) 12.1 11.7-15.5 [place] 870041-10-07 12:55:00 Test Item Value Reference Range Interpretation Comments Neutrophils # (test code = Neutrophils 3139 0081-7211 #) [facility] HospitalAqeakymUPBAVLINWX6748-88-22 12:55:00 Test Item Value Reference Range Interpretation Comments Hct (test code = Hct) 37.8 35.0-45.0 [place] 870041-10-07 12:55:00 Test Item Value Reference Range Interpretation Comments MCV (test code = MCV) 84.0 80.0-100.0 [place] 870041-10-07 12:55:00 Test Item Value Reference Range Interpretation Comments MCH (test code = MCH) 26.9 pg 27.0-33.0 [facility] HospitalEwlfwkwQFOENHPWNR9716-91-51 12:55:00 Test Item Value Reference Range Interpretation Comments MCHC (test code = MCHC) 32.0 32.0-36.0 [facility] HospitalBljoawmLXEQSDYBGJ5401-76-19 12:55:00 Test Item Value Reference Range Interpretation Comments RDW (test code = RDW) 14.0 11.0-15.0 [place] 870041-10-07 12:55:00 Test Item Value Reference Range Interpretation Comments Platelet (test code = Platelet) 151 140-400 [place] 870041-10-07 12:55:00 Test Item Value Reference Range Interpretation Comments MPV (test code = MPV) 12.1 7.5-12.5 [place] 870041-10-07 12:55:00 Test Item Value Reference Range Interpretation Comments Neutrophils # (test code = Neutrophils 3139 6890-4574 #) [facility] HospitalOeylqukQAGYHTSLDB8201-42-80 12:55:00 Test Item Value Reference Range Interpretation Comments Lymphocytes # (test code = Lymphocytes 4453 034-0780 #) [facility] HospitalHyurtqfDTDOJTSFBT0797-98-78 12:55:00 Test Item Value Reference Range Interpretation Comments Monocytes # (test code = Monocytes #) 350 200-950 [place] 870041-10-07 12:55:00 Test Item Value Reference Range Interpretation Comments Lymphocytes # (test code = Lymphocytes 2443 311-6568 #) [place] 870041-10-07 12:55:00 Test Item Value Reference Range Interpretation Comments Eosinophils # (test code = Eosinophils 72 15-500 #) [place] 870041-10-07 12:55:00 Test Item Value Reference Range Interpretation Comments Basophils # (test code = Basophils #) 29 <=200 [place] 870041-10-07 12:55:00 Test Item Value Reference Range Interpretation Comments Segs (test code = Segs) 65.4 [place] 870041-10-07 12:55:00 Test Item Value Reference Range Interpretation Comments Lymphocytes (test code = Lymphocytes) 25.2 [place] 870041-10-07 12:55:00 Test Item Value Reference Range Interpretation Comments Monocytes (test code = Monocytes) 7.3 [place] 870041-10-07 12:55:00 Test Item Value Reference Range Interpretation Comments Eosinophils (test code = Eosinophils) 1.5 [place] 870041-10-07 12:55:00 Test Item Value Reference Range Interpretation Comments Basophils (test code = Basophils) 0.6 [place] 96[address]-10-07 12:55:00 Test Item Value Reference Range Interpretation Comments Sed Rate (test code = Sed Rate) 22 [place] 015591-10-07 12:55:00 Test Item Value Reference Range Interpretation Comments C-REACTIVE PROTEIN (test code = 2.9 C-REACTIVE PROTEIN) [place] 870041-10-07 12:55:00 Test Item Value Reference Range Interpretation Comments Monocytes # (test code = Monocytes #) 350 200-950 [facility]2021-10-07 12:55:00 Test Item Value Reference Range Interpretation Comments Vitamin B12 Lvl (test code = Vitamin 223 783-8034 B12 Lvl) [facility]2021-10-07 12:55:00 Test Item Value Reference Range Interpretation Comments Glucose Lvl (test code = Glucose Lvl) 151 65-99 [facility]2021-10-07 12:55:00 Test Item Value Reference Range Interpretation Comments BUN (test code = BUN) 17 7-25 [place] 870041-10-07 12:55:00 Test Item Value Reference Range Interpretation Comments Eosinophils # (test code = Eosinophils 72 15-500 #) [facility]2021-10-07 12:55:00 Test Item Value Reference Range Interpretation Comments Creatinine Lvl (test code = Creatinine 0.49 0.50-1.05 Lvl) [facility]2021-10-07 12:55:00 Test Item Value Reference Range Interpretation Comments eGFR NON-AFR. BARBADIAN (test code = 107 eGFR NON-AFR. BARBADIAN) [facility]2021-10-07 12:55:00 Test Item Value Reference Range Interpretation Comments eGFR (test code = eGFR 124 ) [place] 852421-10-07 12:55:00 Test Item Value Reference Range Interpretation Comments B/C Ratio (test code = B/C Ratio) 35 6-22 [facility]2021-10-07 12:55:00 Test Item Value Reference Range Interpretation Comments Sodium Lvl (test code = Sodium Lvl) 140 135-146 [place] 852421-10-07 12:55:00 Test Item Value Reference Range Interpretation Comments Potassium Lvl (test code = Potassium 4.0 3.5-5.3 Lvl) [place] 852421-10-07 12:55:00 Test Item Value Reference Range Interpretation Comments Chloride Lvl (test code = Chloride Lvl) 105 98-110 [facility]2021-10-07 12:55:00 Test Item Value Reference Range Interpretation Comments CO2 (test code = CO2) 29 20-32 [facility]2021-10-07 12:55:00 Test Item Value Reference Range Interpretation Comments Calcium Lvl (test code = Calcium Lvl) 8.7 8.6-10.4 [place] 852421-10-07 12:55:00 Test Item Value Reference Range Interpretation Comments Total Protein (test code = Total 6.8 6.1-8.1 Protein) [facility]axcDWUGOQU[facility]EL9244-60-[facility] 12:55:00 Test Item Value Reference Range Interpretation Comments Basophils # (test code 29 See_Comment [Aut omated message] The = Basophils #) system which generated this result tra nsmitted reference range : <=200. The reference r brice was not used to int erpret this result as normal/abnormal . [facility]2021-10-07 12:55:00 Test Item Value Reference Range Interpretation Comments Albumin Lvl (test code = Albumin Lvl) 3.7 3.6-5.1 [facility]2021-10-07 12:55:00 Test Item Value Reference Range Interpretation Comments Globulin (test code = Globulin) 3.1 1.9-3.7 [place] 852421-10-07 12:55:00 Test Item Value Reference Range Interpretation Comments A/G Ratio (test code = A/G Ratio) 1.2 1.0-2.5 [facility]2021-10-07 12:55:00 Test Item Value Reference Range Interpretation Comments Bili Total (test code = Bili Total) 0.6 0.2-1.2 [facility]2021-10-07 12:55:00 Test Item Value Reference Range Interpretation Comments Alk Phos (test code = Alk Phos) 59 37-153 [facility]2021-10-07 12:55:00 Test Item Value Reference Range Interpretation Comments ASPARTATE TRANSAMINASE (test code = 18 10-35 ASPARTATE TRANSAMINASE) [facility]2021-10-07 12:55:00 Test Item Value Reference Range Interpretation Comments ALANINE AMINOTRANSFERASE (test code = 23 6-29 ALANINE AMINOTRANSFERASE) [facility] HospitalMzlzejdBMGYKNVCQJ3422-93-60 12:55:00 Test Item Value Reference Range Interpretation Comments WBC X 10x3 (test code = WBC X 10x3) 4.8 3.8-10.8 [place] 870041-10-07 12:55:00 Test Item Value Reference Range Interpretation Comments RBC X 10x6 (test code = RBC X 10x6) 4.50 3.80-5.10 [facility] HospitalXilttfqHLPUHFMJYZ1429-74-22 12:55:00 Test Item Value Reference Range Interpretation Comments Hgb (test code = Hgb) 12.1 11.7-15.5 [facility] HospitalPjczbrlAGLOZPSSEY6087-51-76 12:55:00 Test Item Value Reference Range Interpretation Comments Segs (test code = Segs) 65.4 [facility] HospitalFcuxedwDRJWSRHSZC5436-53-48 12:55:00 Test Item Value Reference Range Interpretation Comments Hct (test code = Hct) 37.8 35.0-45.0 [place] 870041-10-07 12:55:00 Test Item Value Reference Range Interpretation Comments MCV (test code = MCV) 84.0 80.0-100.0 [place] 870041-10-07 12:55:00 Test Item Value Reference Range Interpretation Comments MCH (test code = MCH) 26.9 pg 27.0-33.0 [facility] HospitalNyqensrQLUVYIMURS8766-80-41 12:55:00 Test Item Value Reference Range Interpretation Comments MCHC (test code = MCHC) 32.0 32.0-36.0 [place] 870041-10-07 12:55:00 Test Item Value Reference Range Interpretation Comments RDW (test code = RDW) 14.0 11.0-15.0 [place] 870041-10-07 12:55:00 Test Item Value Reference Range Interpretation Comments Platelet (test code = Platelet) 151 140-400 [facility] HospitalDpptjlaSMWABAQOZD8827-44-85 12:55:00 Test Item Value Reference Range Interpretation Comments MPV (test code = MPV) 12.1 7.5-12.5 [facility] HospitalTrtbdmoLIXMJJQHRO8890-70-63 12:55:00 Test Item Value Reference Range Interpretation Comments Neutrophils # (test code = Neutrophils 3139 6344-2101 #) [facility] HospitalUbgwaowHVRQGLQVLI5667-48-62 12:55:00 Test Item Value Reference Range Interpretation Comments Lymphocytes # (test code = Lymphocytes 5570 351-3893 #) [facility] HospitalMupxsmyVZWTUWTBGW9033-16-42 12:55:00 Test Item Value Reference Range Interpretation Comments Monocytes # (test code = Monocytes #) 350 200-950 [facility] HospitalTyczlquZNKURDQBOY7073-25-07 12:55:00 Test Item Value Reference Range Interpretation Comments Lymphocytes (test code = Lymphocytes) 25.2 [facility] HospitalTeyizplSNUAYSGWON4066-11-88 12:55:00 Test Item Value Reference Range Interpretation Comments Eosinophils # (test code = Eosinophils 72 15-500 #) [facility] HospitalVhsioxqRKEESMCMTJ1116-23-90 12:55:00 Test Item Value Reference Range Interpretation Comments Basophils # (test code = Basophils #) 29 <=200 [facility] HospitalRkskpapPMIHSPMIXM3121-26-00 12:55:00 Test Item Value Reference Range Interpretation Comments Segs (test code = Segs) 65.4 [facility] HospitalBuqrvpePHJHEIPETA6555-00-37 12:55:00 Test Item Value Reference Range Interpretation Comments Lymphocytes (test code = Lymphocytes) 25.2 [facility] HospitalZukfqgaVWMIRHSTZM6153-08-28 12:55:00 Test Item Value Reference Range Interpretation Comments Monocytes (test code = Monocytes) 7.3 [facility] HospitalVtmtpjdMGNHASCEMP2872-96-71 12:55:00 Test Item Value Reference Range Interpretation Comments Eosinophils (test code = Eosinophils) 1.5 [facility] HospitalRfusijlRIUVRDVAQR9356-07-06 12:55:00 Test Item Value Reference Range Interpretation Comments Basophils (test code = Basophils) 0.6 [facility] HospitalJnbztaaMMXYUHTPQR9897-47-24 12:55:00 Test Item Value Reference Range Interpretation Comments Sed Rate (test code = Sed Rate) 22 [facility]fpyqrtOKUGAYEYBA8185-36-42 12:55:00 Test Item Value Reference Range Interpretation Comments C-REACTIVE PROTEIN (test code = 2.9 C-REACTIVE PROTEIN) [place] 870041-10-07 12:55:00 Test Item Value Reference Range Interpretation Comments Monocytes (test code = Monocytes) 7.3 [place] [address]-10-07 12:55:00 Test Item Value Reference Range Interpretation Comments Eosinophils (test code = Eosinophils) 1.5 [place] [address]-10-07 12:55:00 Test Item Value Reference Range Interpretation Comments Basophils (test code = Basophils) 0.6 [place] 96[address]-10-07 12:55:00 Test Item Value Reference Range Interpretation Comments Sed Rate (test code = Sed Rate) 22 [place] 015591-10-07 12:55:00 Test Item Value Reference Range Interpretation Comments C-REACTIVE PROTEIN (test code = 2.9 C-REACTIVE PROTEIN) [facility]2021-10-07 12:55:00 Test Item Value Reference Range Interpretation Comments Vitamin B12 Lvl (test code = Vitamin 332 041-4477 B12 Lvl) [facility]2021-10-07 12:55:00 Test Item Value Reference Range Interpretation Comments Glucose Lvl (test code = Glucose Lvl) 151 65-99 [place] 852421-10-07 12:55:00 Test Item Value Reference Range Interpretation Comments BUN (test code = BUN) 17 7-25 [place] 852421-10-07 12:55:00 Test Item Value Reference Range Interpretation Comments Creatinine Lvl (test code = Creatinine 0.49 0.50-1.05 Lvl) [place] 852421-10-07 12:55:00 Test Item Value Reference Range Interpretation Comments eGFR NON-AFR. BARBADIAN (test code = 107 eGFR NON-AFR. BARBADIAN) [place] 852421-10-07 12:55:00 Test Item Value Reference Range Interpretation Comments eGFR (test code = eGFR 124 ) [place] 852421-10-07 12:55:00 Test Item Value Reference Range Interpretation Comments B/C Ratio (test code = B/C Ratio) 35 6-22 [place] 852421-10-07 12:55:00 Test Item Value Reference Range Interpretation Comments Sodium Lvl (test code = Sodium Lvl) 140 135-146 [facility]2021-10-07 12:55:00 Test Item Value Reference Range Interpretation Comments Potassium Lvl (test code = Potassium 4.0 3.5-5.3 Lvl) [facility]2021-10-07 12:55:00 Test Item Value Reference Range Interpretation Comments Chloride Lvl (test code = Chloride Lvl) 105 98-110 [place] 852421-10-07 12:55:00 Test Item Value Reference Range Interpretation Comments CO2 (test code = CO2) 29 20-32 [place] 852421-10-07 12:55:00 Test Item Value Reference Range Interpretation Comments Calcium Lvl (test code = Calcium Lvl) 8.7 8.6-10.4 [facility]2021-10-07 12:55:00 Test Item Value Reference Range Interpretation Comments Vitamin B12 Lvl (test code = Vitamin 192 746-4105 B12 Lvl) [facility]2021-10-07 12:55:00 Test Item Value Reference Range Interpretation Comments Glucose Lvl (test code = Glucose Lvl) 151 65-99 [place] 852421-10-07 12:55:00 Test Item Value Reference Range Interpretation Comments BUN (test code = BUN) 17 7-25 [place] 852421-10-07 12:55:00 Test Item Value Reference Range Interpretation Comments Creatinine Lvl (test code = Creatinine 0.49 0.50-1.05 Lvl) [place] 852421-10-07 12:55:00 Test Item Value Reference Range Interpretation Comments eGFR NON-AFR. BARBADIAN (test code = 107 eGFR NON-AFR. BARBADIAN) [facility]2021-10-07 12:55:00 Test Item Value Reference Range Interpretation Comments eGFR (test code = eGFR 124 ) [facility]2021-10-07 12:55:00 Test Item Value Reference Range Interpretation Comments B/C Ratio (test code = B/C Ratio) 35 6-22 [place] 852421-10-07 12:55:00 Test Item Value Reference Range Interpretation Comments Sodium Lvl (test code = Sodium Lvl) 140 135-146 [place] 852421-10-07 12:55:00 Test Item Value Reference Range Interpretation Comments Total Protein (test code = Total 6.8 6.1-8.1 Protein) [place] 852421-10-07 12:55:00 Test Item Value Reference Range Interpretation Comments Potassium Lvl (test code = Potassium 4.0 3.5-5.3 Lvl) [place] 852421-10-07 12:55:00 Test Item Value Reference Range Interpretation Comments Chloride Lvl (test code = Chloride Lvl) 105 98-110 [place] 852421-10-07 12:55:00 Test Item Value Reference Range Interpretation Comments CO2 (test code = CO2) 29 20-32 [place] 852421-10-07 12:55:00 Test Item Value Reference Range Interpretation Comments Calcium Lvl (test code = Calcium Lvl) 8.7 8.6-10.4 [place] 852421-10-07 12:55:00 Test Item Value Reference Range Interpretation Comments Total Protein (test code = Total 6.8 6.1-8.1 Protein) [facility]2021-10-07 12:55:00 Test Item Value Reference Range Interpretation Comments Albumin Lvl (test code = Albumin Lvl) 3.7 3.6-5.1 [facility]2021-10-07 12:55:00 Test Item Value Reference Range Interpretation Comments Globulin (test code = Globulin) 3.1 1.9-3.7 [place] 852421-10-07 12:55:00 Test Item Value Reference Range Interpretation Comments A/G Ratio (test code = A/G Ratio) 1.2 1.0-2.5 [place] 852421-10-07 12:55:00 Test Item Value Reference Range Interpretation Comments Bili Total (test code = Bili Total) 0.6 0.2-1.2 [place] 852421-10-07 12:55:00 Test Item Value Reference Range Interpretation Comments Alk Phos (test code = Alk Phos) 59 37-153 [place] 852421-10-07 12:55:00 Test Item Value Reference Range Interpretation Comments Albumin Lvl (test code = Albumin Lvl) 3.7 3.6-5.1 [place] 852421-10-07 12:55:00 Test Item Value Reference Range Interpretation Comments ASPARTATE TRANSAMINASE (test code = 18 10-35 ASPARTATE TRANSAMINASE) [facility]2021-10-07 12:55:00 Test Item Value Reference Range Interpretation Comments ALANINE AMINOTRANSFERASE (test code = 23 6-29 ALANINE AMINOTRANSFERASE) [facility]GSJSZHYPAX1001-64-[facility] 12:55:00 Test Item Value Reference Range Interpretation Comments WBC X 10x3 (test code = WBC X 10x3) 4.8 3.8-10.8 [place] 870041-10-07 12:55:00 Test Item Value Reference Range Interpretation Comments RBC X 10x6 (test code = RBC X 10x6) 4.50 3.80-5.10 [place] 870041-10-07 12:55:00 Test Item Value Reference Range Interpretation Comments Hgb (test code = Hgb) 12.1 11.7-15.5 [facility] HospitalTzdtireNDTUCLWROE0029-07-16 12:55:00 Test Item Value Reference Range Interpretation Comments Hct (test code = Hct) 37.8 35.0-45.0 [facility] HospitalSscknimBXHEKZBNWP7293-40-19 12:55:00 Test Item Value Reference Range Interpretation Comments MCV (test code = MCV) 84.0 80.0-100.0 [facility] HospitalOiodoyxVFUTNHGKLI8546-39-24 12:55:00 Test Item Value Reference Range Interpretation Comments MCH (test code = MCH) 26.9 pg 27.0-33.0 [facility] HospitalYsgkkudRMWPVUIDSO9856-58-99 12:55:00 Test Item Value Reference Range Interpretation Comments MCHC (test code = MCHC) 32.0 32.0-36.0 [facility] HospitalHhfkplaQVSBJUSNBJ2772-09-68 12:55:00 Test Item Value Reference Range Interpretation Comments RDW (test code = RDW) 14.0 11.0-15.0 [facility]2021-10-07 12:55:00 Test Item Value Reference Range Interpretation Comments Globulin (test code = Globulin) 3.1 1.9-3.7 [facility] HospitalMsmslvhSHXKAMWLXZ2948-07-40 12:55:00 Test Item Value Reference Range Interpretation Comments Platelet (test code = Platelet) 151 140-400 [facility] HospitalDpfncujBVUXIPBNNH8288-11-93 12:55:00 Test Item Value Reference Range Interpretation Comments MPV (test code = MPV) 12.1 7.5-12.5 [facility] HospitalSldrayyAZARXIOHWB7329-49-46 12:55:00 Test Item Value Reference Range Interpretation Comments Neutrophils # (test code = Neutrophils 3139 7658-5400 #) [facility] HospitalNtnuplgDIMZMZVCCN7952-86-51 12:55:00 Test Item Value Reference Range Interpretation Comments Lymphocytes # (test code = Lymphocytes 1700 639-3659 #) [facility] HospitalIqvldeiHDFMDOHHXR4615-51-45 12:55:00 Test Item Value Reference Range Interpretation Comments Monocytes # (test code = Monocytes #) 350 200-950 [facility] HospitalEzxenktSFBKTUOLDY3704-82-55 12:55:00 Test Item Value Reference Range Interpretation Comments Eosinophils # (test code = Eosinophils 72 15-500 #) [facility] HospitalRojjbpvGFEYQAARVR7557-60-62 12:55:00 Test Item Value Reference Range Interpretation Comments Basophils # (test code = Basophils #) 29 <=200 [facility] HospitalEllrklzPJBCLBILTU4820-59-49 12:55:00 Test Item Value Reference Range Interpretation Comments Segs (test code = Segs) 65.4 [facility] HospitalDmtjmgtGDUBKFJETS7834-19-98 12:55:00 Test Item Value Reference Range Interpretation Comments Lymphocytes (test code = Lymphocytes) 25.2 [facility] HospitalHbyeesaRCJLDSSZKY2910-19-74 12:55:00 Test Item Value Reference Range Interpretation Comments Monocytes (test code = Monocytes) 7.3 [facility]2021-10-07 12:55:00 Test Item Value Reference Range Interpretation Comments A/G Ratio (test code = A/G Ratio) 1.2 1.0-2.5 [place] 870041-10-07 12:55:00 Test Item Value Reference Range Interpretation Comments Eosinophils (test code = Eosinophils) 1.5 [place] 870041-10-07 12:55:00 Test Item Value Reference Range Interpretation Comments Basophils (test code = Basophils) 0.6 [place] 870041-10-07 12:55:00 Test Item Value Reference Range Interpretation Comments Sed Rate (test code = Sed Rate) 22 [facility]hMGIUXZVMVQ0942-[facility]-97 12:55:00 Test Item Value Reference Range Interpretation Comments C-REACTIVE PROTEIN (test code = 2.9 C-REACTIVE PROTEIN) [facility]2021-10-07 12:55:00 Test Item Value Reference Range Interpretation Comments Bili Total (test code = Bili Total) 0.6 0.2-1.2 [facility]2021-10-07 12:55:00 Test Item Value Reference Range Interpretation Comments Alk Phos (test code = Alk Phos) 59 37-153 [place] 852421-10-07 12:55:00 Test Item Value Reference Range Interpretation Comments ASPARTATE TRANSAMINASE (test code = 18 10-35 ASPARTATE TRANSAMINASE) [facility]2021-10-07 12:55:00 Test Item Value Reference Range Interpretation Comments ALANINE AMINOTRANSFERASE (test code = 23 6-29 ALANINE AMINOTRANSFERASE) [place] 870041-10-07 12:55:00 Test Item Value Reference Range Interpretation Comments WBC X 10x3 (test code = WBC X 10x3) 4.8 3.8-10.8 [place] 870041-10-07 12:55:00 Test Item Value Reference Range Interpretation Comments RBC X 10x6 (test code = RBC X 10x6) 4.50 3.80-5.10 [place] 870041-10-07 12:55:00 Test Item Value Reference Range Interpretation Comments Hgb (test code = Hgb) 12.1 11.7-15.5 [place] 870041-10-07 12:55:00 Test Item Value Reference Range Interpretation Comments Hct (test code = Hct) 37.8 35.0-45.0 [place] 870041-10-07 12:55:00 Test Item Value Reference Range Interpretation Comments MCV (test code = MCV) 84.0 80.0-100.0 [place] 870041-10-07 12:55:00 Test Item Value Reference Range Interpretation Comments MCH (test code = MCH) 26.9 pg 27.0-33.0 [place] 870041-10-07 12:55:00 Test Item Value Reference Range Interpretation Comments MCHC (test code = MCHC) 32.0 32.0-36.0 [place] 870041-10-07 12:55:00 Test Item Value Reference Range Interpretation Comments RDW (test code = RDW) 14.0 11.0-15.0 [place] 870041-10-07 12:55:00 Test Item Value Reference Range Interpretation Comments Platelet (test code = Platelet) 151 140-400 [facility] HospitalHznmcjcCCBJMNYMKD3344-71-14 12:55:00 Test Item Value Reference Range Interpretation Comments MPV (test code = MPV) 12.1 7.5-12.5 [facility] HospitalOdnbfyyANGXVNPOPS1866-23-81 12:55:00 Test Item Value Reference Range Interpretation Comments Neutrophils # (test code = Neutrophils 3139 7422-1604 #) [facility] HospitalXuvpiofCPGSVQJKHO6508-60-81 12:55:00 Test Item Value Reference Range Interpretation Comments Lymphocytes # (test code = Lymphocytes 0271 055-8721 #) [facility] HospitalKpqvmnhOXVSBQKJUS1190-01-48 12:55:00 Test Item Value Reference Range Interpretation Comments Monocytes # (test code = Monocytes #) 350 200-950 [facility] HospitalCczrcjhYBRXQBGUIH1459-93-04 12:55:00 Test Item Value Reference Range Interpretation Comments Eosinophils # (test code = Eosinophils 72 15-500 #) [facility] HospitalUtnomanYAMARKGRGJ4551-48-47 12:55:00 Test Item Value Reference Range Interpretation Comments Basophils # (test code 29 See_Comment [Aut omated message] The = Basophils #) system which generated this result tra nsmitted reference range : <=200. The reference r brice was not used to int erpret this result as normal/abnormal . [facility] HospitalQrfhvhwGTUPZUAEQU7007-28-67 12:55:00 Test Item Value Reference Range Interpretation Comments Segs (test code = Segs) 65.4 [facility] HospitalIyjgbdxFCPVLALYGE0543-35-47 12:55:00 Test Item Value Reference Range Interpretation Comments Lymphocytes (test code = Lymphocytes) 25.2 [place] 870041-10-07 12:55:00 Test Item Value Reference Range Interpretation Comments Monocytes (test code = Monocytes) 7.3 [place] 870041-10-07 12:55:00 Test Item Value Reference Range Interpretation Comments Eosinophils (test code = Eosinophils) 1.5 [facility] HospitalHusgtgyNXMQIUNIJU1767-53-71 12:55:00 Test Item Value Reference Range Interpretation Comments Basophils (test code = Basophils) 0.6 [place] 870041-10-07 12:55:00 Test Item Value Reference Range Interpretation Comments Sed Rate (test code = Sed Rate) 22 [facility]landWialspsGNXTLJWAPX1875-90-73 12:55:00 Test Item Value Reference Range Interpretation Comments C-REACTIVE PROTEIN (test code = 2.9 C-REACTIVE PROTEIN) [facility]2021-10-07 12:55:00 Test Item Value Reference Range Interpretation Comments Vitamin B12 Lvl (test code = Vitamin 034 583-1068 B12 Lvl) [place] 852421-10-07 12:55:00 Test Item Value Reference Range Interpretation Comments Glucose Lvl (test code = Glucose Lvl) 151 65-99 [place] 852421-10-07 12:55:00 Test Item Value Reference Range Interpretation Comments BUN (test code = BUN) 17 7-25 [place] 852421-10-07 12:55:00 Test Item Value Reference Range Interpretation Comments Creatinine Lvl (test code = Creatinine 0.49 0.50-1.05 Lvl) [place] 852421-10-07 12:55:00 Test Item Value Reference Range Interpretation Comments eGFR NON-AFR. BAR[place]IAN (test code = 107 eGFR NON-AFR. BARBADIAN) [place] 852421-10-07 12:55:00 Test Item Value Reference Range Interpretation Comments eGFR (test code = eGFR 124 ) [place] 852421-10-07 12:55:00 Test Item Value Reference Range Interpretation Comments B/C Ratio (test code = B/C Ratio) 35 6-22 [facility]2021-10-07 12:55:00 Test Item Value Reference Range Interpretation Comments Sodium Lvl (test code = Sodium Lvl) 140 135-146 [place] 852421-10-07 12:55:00 Test Item Value Reference Range Interpretation Comments Potassium Lvl (test code = Potassium 4.0 3.5-5.3 Lvl) [place] 852421-10-07 12:55:00 Test Item Value Reference Range Interpretation Comments Chloride Lvl (test code = Chloride Lvl) 105 98-110 [place] 852421-10-07 12:55:00 Test Item Value Reference Range Interpretation Comments CO2 (test code = CO2) 29 20-32 [place] 852421-10-07 12:55:00 Test Item Value Reference Range Interpretation Comments Calcium Lvl (test code = Calcium Lvl) 8.7 8.6-10.4 [place] 852421-10-07 12:55:00 Test Item Value Reference Range Interpretation Comments Total Protein (test code = Total 6.8 6.1-8.1 Protein) [place] 852421-10-07 12:55:00 Test Item Value Reference Range Interpretation Comments Albumin Lvl (test code = Albumin Lvl) 3.7 3.6-5.1 [place] 852421-10-07 12:55:00 Test Item Value Reference Range Interpretation Comments Globulin (test code = Globulin) 3.1 1.9-3.7 [place] 852421-10-07 12:55:00 Test Item Value Reference Range Interpretation Comments A/G Ratio (test code = A/G Ratio) 1.2 1.0-2.5 [place] 852421-10-07 12:55:00 Test Item Value Reference Range Interpretation Comments Bili Total (test code = Bili Total) 0.6 0.2-1.2 [place] [address]-10-07 12:55:00 Test Item Value Reference Range Interpretation Comments Alk Phos (test code = Alk Phos) 59 37-153 [place] 852421-10-07 12:55:00 Test Item Value Reference Range Interpretation Comments ASPARTATE TRANSAMINASE (test code = 18 10-35 ASPARTATE TRANSAMINASE) [place] 852421-10-07 12:55:00 Test Item Value Reference Range Interpretation Comments ALANINE AMINOTRANSFERASE (test code = 23 6-29 ALANINE AMINOTRANSFERASE) [place] [address]-10-07 12:55:00 Test Item Value Reference Range Interpretation Comments WBC X 10x3 (test code = WBC X 10x3) 4.8 3.8-10.8 [place] [address]-10-07 12:55:00 Test Item Value Reference Range Interpretation Comments RBC X 10x6 (test code = RBC X 10x6) 4.50 3.80-5.10 [place] 870041-10-07 12:55:00 Test Item Value Reference Range Interpretation Comments Hgb (test code = Hgb) 12.1 11.7-15.5 [place] [address]-10-07 12:55:00 Test Item Value Reference Range Interpretation Comments Hct (test code = Hct) 37.8 35.0-45.0 [place] 870041-10-07 12:55:00 Test Item Value Reference Range Interpretation Comments MCV (test code = MCV) 84.0 80.0-100.0 [facility] HospitalVzujewuACASFAOZJT4651-03-78 12:55:00 Test Item Value Reference Range Interpretation Comments MCH (test code = MCH) 26.9 pg 27.0-33.0 [facility] HospitalMbxyjnrHHKUXFJTTN4156-03-75 12:55:00 Test Item Value Reference Range Interpretation Comments MCHC (test code = MCHC) 32.0 32.0-36.0 [facility] HospitalSfwkagyAMNOYHOGQA8729-17-79 12:55:00 Test Item Value Reference Range Interpretation Comments RDW (test code = RDW) 14.0 11.0-15.0 [facility] HospitalAjklkokMVPOOEVYWO0216-88-27 12:55:00 Test Item Value Reference Range Interpretation Comments Platelet (test code = Platelet) 151 140-400 [place] 870041-10-07 12:55:00 Test Item Value Reference Range Interpretation Comments MPV (test code = MPV) 12.1 7.5-12.5 [place] 870041-10-07 12:55:00 Test Item Value Reference Range Interpretation Comments Neutrophils # (test code = Neutrophils 3139 9445-2178 #) [facility] HospitalHktmlorBUPHZRSMDS3616-51-15 12:55:00 Test Item Value Reference Range Interpretation Comments Lymphocytes # (test code = Lymphocytes 7039 119-0833 #) [facility] HospitalQsqesodJIDQSIOMOC4670-96-97 12:55:00 Test Item Value Reference Range Interpretation Comments Monocytes # (test code = Monocytes #) 350 200-950 [facility] HospitalLvansghIHITBGBPML8011-23-86 12:55:00 Test Item Value Reference Range Interpretation Comments Eosinophils # (test code = Eosinophils 72 15-500 #) [facility] HospitalJpkaswzWZRGKRTXRY4622-14-89 12:55:00 Test Item Value Reference Range Interpretation Comments Basophils # (test code 29 See_Comment [Aut omated message] The = Basophils #) system which generated this result tra nsmitted reference range : <=200. The reference r brice was not used to int erpret this result as normal/abnormal . [facility] HospitalEtogofpLFTAFCOKDX5964-62-03 12:55:00 Test Item Value Reference Range Interpretation Comments Segs (test code = Segs) 65.4 [place] 870041-10-07 12:55:00 Test Item Value Reference Range Interpretation Comments Lymphocytes (test code = Lymphocytes) 25.2 [place] 870041-10-07 12:55:00 Test Item Value Reference Range Interpretation Comments Monocytes (test code = Monocytes) 7.3 [place] 870041-10-07 12:55:00 Test Item Value Reference Range Interpretation Comments Eosinophils (test code = Eosinophils) 1.5 [place] 870041-10-07 12:55:00 Test Item Value Reference Range Interpretation Comments Basophils (test code = Basophils) 0.6 [place] [address]-10-07 12:55:00 Test Item Value Reference Range Interpretation Comments Sed Rate (test code = Sed Rate) 22 [place] [address]-10-07 12:55:00 Test Item Value Reference Range Interpretation Comments C-REACTIVE PROTEIN (test code = 2.9 C-REACTIVE PROTEIN) [facility]2021-10-07 12:55:00 Test Item Value Reference Range Interpretation Comments Vitamin B12 Lvl (test code = Vitamin 681 117-9307 B12 Lvl) [facility]2021-10-07 12:55:00 Test Item Value Reference Range Interpretation Comments Glucose Lvl (test code = Glucose Lvl) 151 65-99 [facility]2021-10-07 12:55:00 Test Item Value Reference Range Interpretation Comments BUN (test code = BUN) 17 7-25 [facility]2021-10-07 12:55:00 Test Item Value Reference Range Interpretation Comments Vitamin B12 Lvl (test code = Vitamin 734 433-5083 B12 Lvl) [facility]2021-10-07 12:55:00 Test Item Value Reference Range Interpretation Comments Creatinine Lvl (test code = Creatinine 0.49 0.50-1.05 Lvl) [place] 852421-10-07 12:55:00 Test Item Value Reference Range Interpretation Comments eGFR NON-AFR. [place] (test code = 107 eGFR NON-AFR. BARBADIAN) [place] 852421-10-07 12:55:00 Test Item Value Reference Range Interpretation Comments eGFR (test code = eGFR 124 ) [place] 852421-10-07 12:55:00 Test Item Value Reference Range Interpretation Comments B/C Ratio (test code = B/C Ratio) 35 6-22 [facility]2021-10-07 12:55:00 Test Item Value Reference Range Interpretation Comments Sodium Lvl (test code = Sodium Lvl) 140 135-146 [facility]2021-10-07 12:55:00 Test Item Value Reference Range Interpretation Comments Potassium Lvl (test code = Potassium 4.0 3.5-5.3 Lvl) [place] 852421-10-07 12:55:00 Test Item Value Reference Range Interpretation Comments Chloride Lvl (test code = Chloride Lvl) 105 98-110 [facility]2021-10-07 12:55:00 Test Item Value Reference Range Interpretation Comments CO2 (test code = CO2) 29 20-32 [place] 852421-10-07 12:55:00 Test Item Value Reference Range Interpretation Comments Calcium Lvl (test code = Calcium Lvl) 8.7 8.6-10.4 [place] 852421-10-07 12:55:00 Test Item Value Reference Range Interpretation Comments Total Protein (test code = Total 6.8 6.1-8.1 Protein) [facility]2021-10-07 12:55:00 Test Item Value Reference Range Interpretation Comments Glucose Lvl (test code = Glucose Lvl) 151 65-99 [facility]2021-10-07 12:55:00 Test Item Value Reference Range Interpretation Comments Albumin Lvl (test code = Albumin Lvl) 3.7 3.6-5.1 [place] 852421-10-07 12:55:00 Test Item Value Reference Range Interpretation Comments Globulin (test code = Globulin) 3.1 1.9-3.7 [place] 852421-10-07 12:55:00 Test Item Value Reference Range Interpretation Comments A/G Ratio (test code = A/G Ratio) 1.2 1.0-2.5 [place] 852421-10-07 12:55:00 Test Item Value Reference Range Interpretation Comments Bili Total (test code = Bili Total) 0.6 0.2-1.2 [place] 852421-10-07 12:55:00 Test Item Value Reference Range Interpretation Comments Alk Phos (test code = Alk Phos) 59 37-153 [facility]2021-10-07 12:55:00 Test Item Value Reference Range Interpretation Comments ASPARTATE TRANSAMINASE (test code = 18 10-35 ASPARTATE TRANSAMINASE) [place] 852421-10-07 12:55:00 Test Item Value Reference Range Interpretation Comments ALANINE AMINOTRANSFERASE (test code = 23 6-29 ALANINE AMINOTRANSFERASE) [place] 870041-10-07 12:55:00 Test Item Value Reference Range Interpretation Comments WBC X 10x3 (test code = WBC X 10x3) 4.8 3.8-10.8 [place] [address]-10-07 12:55:00 Test Item Value Reference Range Interpretation Comments RBC X 10x6 (test code = RBC X 10x6) 4.50 3.80-5.10 [place] [address]-10-07 12:55:00 Test Item Value Reference Range Interpretation Comments Hgb (test code = Hgb) 12.1 11.7-15.5 [facility]2021-10-07 12:55:00 Test Item Value Reference Range Interpretation Comments BUN (test code = BUN) 17 7-25 [place] [address]-10-07 12:55:00 Test Item Value Reference Range Interpretation Comments Hct (test code = Hct) 37.8 35.0-45.0 [place] 870041-10-07 12:55:00 Test Item Value Reference Range Interpretation Comments MCV (test code = MCV) 84.0 80.0-100.0 [place] 870041-10-07 12:55:00 Test Item Value Reference Range Interpretation Comments MCH (test code = MCH) 26.9 pg 27.0-33.0 [place] 870041-10-07 12:55:00 Test Item Value Reference Range Interpretation Comments MCHC (test code = MCHC) 32.0 32.0-36.0 [place] [address]-10-07 12:55:00 Test Item Value Reference Range Interpretation Comments RDW (test code = RDW) 14.0 11.0-15.0 [place] [address]-10-07 12:55:00 Test Item Value Reference Range Interpretation Comments Platelet (test code = Platelet) 151 140-400 [place] 870041-10-07 12:55:00 Test Item Value Reference Range Interpretation Comments MPV (test code = MPV) 12.1 7.5-12.5 [place] 870041-10-07 12:55:00 Test Item Value Reference Range Interpretation Comments Neutrophils # (test code = Neutrophils 3139 0331-7919 #) [facility] HospitalXmctytgVMTVRUAAEY7517-45-29 12:55:00 Test Item Value Reference Range Interpretation Comments Lymphocytes # (test code = Lymphocytes 0063 772-8818 #) [facility] HospitalOakgbazRXHLDLCHVJ7094-33-60 12:55:00 Test Item Value Reference Range Interpretation Comments Monocytes # (test code = Monocytes #) 350 200-950 [facility]2021-10-07 12:55:00 Test Item Value Reference Range Interpretation Comments Creatinine Lvl (test code = Creatinine 0.49 0.50-1.05 Lvl) [facility] HospitalLwkvkvfJNOXNPLBVN2908-65-23 12:55:00 Test Item Value Reference Range Interpretation Comments Eosinophils # (test code = Eosinophils 72 15-500 #) [facility] HospitalRwgbvcoNUNCWHHXJP8894-95-60 12:55:00 Test Item Value Reference Range Interpretation Comments Basophils # (test code 29 See_Comment [Aut omated message] The = Basophils #) system which generated this result tra nsmitted reference range : <=200. The reference r brice was not used to int erpret this result as normal/abnormal . [facility] HospitalDsshhjwNIDEBHWXHN0660-61-45 12:55:00 Test Item Value Reference Range Interpretation Comments Segs (test code = Segs) 65.4 [place] 870041-10-07 12:55:00 Test Item Value Reference Range Interpretation Comments Lymphocytes (test code = Lymphocytes) 25.2 [place] 870041-10-07 12:55:00 Test Item Value Reference Range Interpretation Comments Monocytes (test code = Monocytes) 7.3 [place] 870041-10-07 12:55:00 Test Item Value Reference Range Interpretation Comments Eosinophils (test code = Eosinophils) 1.5 [place] 870041-10-07 12:55:00 Test Item Value Reference Range Interpretation Comments Basophils (test code = Basophils) 0.6 [place] 870041-10-07 12:55:00 Test Item Value Reference Range Interpretation Comments Sed Rate (test code = Sed Rate) 22 [address]10-07 12:55:00 Test Item Value Reference Range Interpretation Comments C-REACTIVE PROTEIN (test code = 2.9 C-REACTIVE PROTEIN) [place] 852421-10-07 12:55:00 Test Item Value Reference Range Interpretation Comments eGFR NON-AFR. BAR[place]IAN (test code = 107 eGFR NON-AFR. BARBADIAN) [facility]2021-10-07 12:55:00 Test Item Value Reference Range Interpretation Comments Vitamin B12 Lvl (test code = Vitamin [phone] B12 Lvl) [place] 852421-10-07 12:55:00 Test Item Value Reference Range Interpretation Comments Glucose Lvl (test code = Glucose Lvl) 151 65-99 [place] 852421-10-07 12:55:00 Test Item Value Reference Range Interpretation Comments BUN (test code = BUN) 17 7-25 [place] 852421-10-07 12:55:00 Test Item Value Reference Range Interpretation Comments eGFR (test code = eGFR 124 ) [facility]2021-10-07 12:55:00 Test Item Value Reference Range Interpretation Comments Creatinine Lvl (test code = Creatinine 0.49 0.50-1.05 Lvl) [facility]2021-10-07 12:55:00 Test Item Value Reference Range Interpretation Comments eGFR NON-AFR. BAR[place]IAN (test code = 107 eGFR NON-AFR. BARBADIAN) [place] 852421-10-07 12:55:00 Test Item Value Reference Range Interpretation Comments eGFR (test code = eGFR 124 ) [place] 852421-10-07 12:55:00 Test Item Value Reference Range Interpretation Comments B/C Ratio (test code = B/C Ratio) 35 6-22 [place] 852421-10-07 12:55:00 Test Item Value Reference Range Interpretation Comments Sodium Lvl (test code = Sodium Lvl) 140 135-146 [place] 852421-10-07 12:55:00 Test Item Value Reference Range Interpretation Comments Potassium Lvl (test code = Potassium 4.0 3.5-5.3 Lvl) [place] 852421-10-07 12:55:00 Test Item Value Reference Range Interpretation Comments Chloride Lvl (test code = Chloride Lvl) 105 98-110 [facility]2021-10-07 12:55:00 Test Item Value Reference Range Interpretation Comments CO2 (test code = CO2) 29 20-32 [facility]2021-10-07 12:55:00 Test Item Value Reference Range Interpretation Comments Calcium Lvl (test code = Calcium Lvl) 8.7 8.6-10.4 [place] 852421-10-07 12:55:00 Test Item Value Reference Range Interpretation Comments Total Protein (test code = Total 6.8 6.1-8.1 Protein) [facility]2021-10-07 12:55:00 Test Item Value Reference Range Interpretation Comments B/C Ratio (test code = B/C Ratio) 35 6-22 [facility]2021-10-07 12:55:00 Test Item Value Reference Range Interpretation Comments Albumin Lvl (test code = Albumin Lvl) 3.7 3.6-5.1 [facility]2021-10-07 12:55:00 Test Item Value Reference Range Interpretation Comments Globulin (test code = Globulin) 3.1 1.9-3.7 [facility]2021-10-07 12:55:00 Test Item Value Reference Range Interpretation Comments A/G Ratio (test code = A/G Ratio) 1.2 1.0-2.5 [facility]2021-10-07 12:55:00 Test Item Value Reference Range Interpretation Comments Bili Total (test code = Bili Total) 0.6 0.2-1.2 [facility]2021-10-07 12:55:00 Test Item Value Reference Range Interpretation Comments Alk Phos (test code = Alk Phos) 59 37-153 [facility]2021-10-07 12:55:00 Test Item Value Reference Range Interpretation Comments ASPARTATE TRANSAMINASE (test code = 18 10-35 ASPARTATE TRANSAMINASE) [facility]2021-10-07 12:55:00 Test Item Value Reference Range Interpretation Comments ALANINE AMINOTRANSFERASE (test code = 23 6-29 ALANINE AMINOTRANSFERASE) [facility]NNYCBJQJIK4296[facility]79-61 12:55:00 Test Item Value Reference Range Interpretation Comments WBC X 10x3 (test code = WBC X 10x3) 4.8 3.8-10.8 [place] 870041-10-07 12:55:00 Test Item Value Reference Range Interpretation Comments RBC X 10x6 (test code = RBC X 10x6) 4.50 3.80-5.10 [place] 870041-10-07 12:55:00 Test Item Value Reference Range Interpretation Comments Hgb (test code = Hgb) 12.1 11.7-15.5 [facility]2021-10-07 12:55:00 Test Item Value Reference Range Interpretation Comments Sodium Lvl (test code = Sodium Lvl) 140 135-146 [facility] HospitalFwppmheVEQXXGBMFZ1539-47-25 12:55:00 Test Item Value Reference Range Interpretation Comments Hct (test code = Hct) 37.8 35.0-45.0 [facility] HospitalIxrlsekJPWTRQMHYR8058-16-83 12:55:00 Test Item Value Reference Range Interpretation Comments MCV (test code = MCV) 84.0 80.0-100.0 [place] 870041-10-07 12:55:00 Test Item Value Reference Range Interpretation Comments MCH (test code = MCH) 26.9 pg 27.0-33.0 [facility] HospitalKjwhwviZSWECKCBSP6945-02-00 12:55:00 Test Item Value Reference Range Interpretation Comments MCHC (test code = MCHC) 32.0 32.0-36.0 [facility] HospitalIrtenxnTYNDGIPNTO8427-12-23 12:55:00 Test Item Value Reference Range Interpretation Comments RDW (test code = RDW) 14.0 11.0-15.0 [facility] HospitalGfwhdiwHFQKRRGOUY5720-43-62 12:55:00 Test Item Value Reference Range Interpretation Comments Platelet (test code = Platelet) 151 140-400 [facility] HospitalQdasdofZUEHDTKNIS6905-49-02 12:55:00 Test Item Value Reference Range Interpretation Comments MPV (test code = MPV) 12.1 7.5-12.5 [facility] HospitalNsuklfkCQBACHHMTS6748-42-57 12:55:00 Test Item Value Reference Range Interpretation Comments Neutrophils # (test code = Neutrophils 7145 4264-0789 #) [facility] HospitalYgnjkkdGIAXAQYNFA1714-38-08 12:55:00 Test Item Value Reference Range Interpretation Comments Lymphocytes # (test code = Lymphocytes 0009 119-8966 #) [facility] HospitalFelilrfEOQAUMBNZM7097-68-13 12:55:00 Test Item Value Reference Range Interpretation Comments Monocytes # (test code = Monocytes #) 350 200-950 [facility]2021-10-07 12:55:00 Test Item Value Reference Range Interpretation Comments Potassium Lvl (test code = Potassium 4.0 3.5-5.3 Lvl) [facility] HospitalGfeernmRWSGZAFXIP0265-50-79 12:55:00 Test Item Value Reference Range Interpretation Comments Eosinophils # (test code = Eosinophils 72 15-500 #) [facility] HospitalZojytbwYPFLRGYNUS0289-97-47 12:55:00 Test Item Value Reference Range Interpretation Comments Basophils # (test code 29 See_Comment [Aut omated message] The = Basophils #) system which generated this result tra nsmitted reference range : <=200. The reference r brice was not used to int erpret this result as normal/abnormal . [facility] HospitalDscigacNWKFZOPEXS3601-25-30 12:55:00 Test Item Value Reference Range Interpretation Comments Segs (test code = Segs) 65.4 [facility] HospitalNjcztvgGTKNQFMELO4228-08-64 12:55:00 Test Item Value Reference Range Interpretation Comments Lymphocytes (test code = Lymphocytes) 25.2 [facility] HospitalDqdtzbdDATQCGIUIT9740-46-46 12:55:00 Test Item Value Reference Range Interpretation Comments Monocytes (test code = Monocytes) 7.3 [facility] HospitalDmngyglPPNBRPWATB4652-66-51 12:55:00 Test Item Value Reference Range Interpretation Comments Eosinophils (test code = Eosinophils) 1.5 [facility] HospitalDlkxkyhARXMBUTATY5578-94-74 12:55:00 Test Item Value Reference Range Interpretation Comments Basophils (test code = Basophils) 0.6 [facility] HospitalEtakobiOBFJCUGRBF4117-90-31 12:55:00 Test Item Value Reference Range Interpretation Comments Sed Rate (test code = Sed Rate) 22 [facility]II[facility]JQ3689-32-12 12:55:00 Test Item Value Reference Range Interpretation Comments C-REACTIVE PROTEIN (test code = 2.9 C-REACTIVE PROTEIN) [facility]2021-10-07 12:55:00 Test Item Value Reference Range Interpretation Comments Chloride Lvl (test code = Chloride Lvl) 105 98-110 [facility]2021-10-07 12:55:00 Test Item Value Reference Range Interpretation Comments Vitamin B12 Lvl (test code = Vitamin 394 844-4314 B12 Lvl) [facility]2021-10-07 12:55:00 Test Item Value Reference Range Interpretation Comments Glucose Lvl (test code = Glucose Lvl) 151 65-99 [place] 852421-10-07 12:55:00 Test Item Value Reference Range Interpretation Comments BUN (test code = BUN) 17 7-25 [place] 852421-10-07 12:55:00 Test Item Value Reference Range Interpretation Comments CO2 (test code = CO2) 29 - [facility]2021-10-07 12:55:00 Test Item Value Reference Range Interpretation Comments Creatinine Lvl (test code = Creatinine 0.49 0.50-1.05 Lvl) [place] 852421-10-07 12:55:00 Test Item Value Reference Range Interpretation Comments eGFR NON-AFR. BARBADIAN (test code = 107 eGFR NON-AFR. BARBADIAN) [place] 852421-10-07 12:55:00 Test Item Value Reference Range Interpretation Comments eGFR (test code = eGFR 124 ) [place] 852421-10-07 12:55:00 Test Item Value Reference Range Interpretation Comments B/C Ratio (test code = B/C Ratio) 35 6-22 [place] 852421-10-07 12:55:00 Test Item Value Reference Range Interpretation Comments Sodium Lvl (test code = Sodium Lvl) 140 135-146 [facility]2021-10-07 12:55:00 Test Item Value Reference Range Interpretation Comments Potassium Lvl (test code = Potassium 4.0 3.5-5.3 Lvl) [facility]2021-10-07 12:55:00 Test Item Value Reference Range Interpretation Comments Chloride Lvl (test code = Chloride Lvl) 105 98-110 [place] 852421-10-07 12:55:00 Test Item Value Reference Range Interpretation Comments CO2 (test code = CO2) 29 - [facility]2021-10-07 12:55:00 Test Item Value Reference Range Interpretation Comments Calcium Lvl (test code = Calcium Lvl) 8.7 8.6-10.4 [facility]2021-10-07 12:55:00 Test Item Value Reference Range Interpretation Comments Total Protein (test code = Total 6.8 6.1-8.1 Protein) [place] 852421-10-07 12:55:00 Test Item Value Reference Range Interpretation Comments Calcium Lvl (test code = Calcium Lvl) 8.7 8.6-10.4 [place] 852421-10-07 12:55:00 Test Item Value Reference Range Interpretation Comments Albumin Lvl (test code = Albumin Lvl) 3.7 3.6-5.1 [place] 852421-10-07 12:55:00 Test Item Value Reference Range Interpretation Comments Globulin (test code = Globulin) 3.1 1.9-3.7 [place] 852421-10-07 12:55:00 Test Item Value Reference Range Interpretation Comments A/G Ratio (test code = A/G Ratio) 1.2 1.0-2.5 [place] 852421-10-07 12:55:00 Test Item Value Reference Range Interpretation Comments Bili Total (test code = Bili Total) 0.6 0.2-1.2 [place] 852421-10-07 12:55:00 Test Item Value Reference Range Interpretation Comments Alk Phos (test code = Alk Phos) 59 37-153 [place] 852421-10-07 12:55:00 Test Item Value Reference Range Interpretation Comments ASPARTATE TRANSAMINASE (test code = 18 10-35 ASPARTATE TRANSAMINASE) [place] 852421-10-07 12:55:00 Test Item Value Reference Range Interpretation Comments ALANINE AMINOTRANSFERASE (test code = 23 6-29 ALANINE AMINOTRANSFERASE) [place] 96[address]-10-07 12:55:00 Test Item Value Reference Range Interpretation Comments WBC X 10x3 (test code = WBC X 10x3) 4.8 3.8-10.8 [place] 870041-10-07 12:55:00 Test Item Value Reference Range Interpretation Comments RBC X 10x6 (test code = RBC X 10x6) 4.50 3.80-5.10 [place] 870041-10-07 12:55:00 Test Item Value Reference Range Interpretation Comments Hgb (test code = Hgb) 12.1 11.7-15.5 [place] 852421-10-07 12:55:00 Test Item Value Reference Range Interpretation Comments Total Protein (test code = Total 6.8 6.1-8.1 Protein) [facility] HospitalReggcsqIAGCWAXXAM5172-15-12 12:55:00 Test Item Value Reference Range Interpretation Comments Hct (test code = Hct) 37.8 35.0-45.0 [facility] HospitalSpitlhwIMBRSHIVKK8143-40-06 12:55:00 Test Item Value Reference Range Interpretation Comments MCV (test code = MCV) 84.0 80.0-100.0 [facility] HospitalJnnnidzHPLFLSTHOO0501-89-12 12:55:00 Test Item Value Reference Range Interpretation Comments MCH (test code = MCH) 26.9 pg 27.0-33.0 [facility] HospitalGyfaneeOAFLVWSVMC6539-59-78 12:55:00 Test Item Value Reference Range Interpretation Comments MCHC (test code = MCHC) 32.0 32.0-36.0 [facility] HospitalMakuvhiPOGUCYBTSG8491-16-66 12:55:00 Test Item Value Reference Range Interpretation Comments RDW (test code = RDW) 14.0 11.0-15.0 [facility] HospitalZvajwisAESTBUKFCV2917-50-39 12:55:00 Test Item Value Reference Range Interpretation Comments Platelet (test code = Platelet) 151 140-400 [facility] HospitalYdsxzhoQBUUJMEURO6801-69-40 12:55:00 Test Item Value Reference Range Interpretation Comments MPV (test code = MPV) 12.1 7.5-12.5 [facility] HospitalNleyopwBJEXGLOTHE3620-11-02 12:55:00 Test Item Value Reference Range Interpretation Comments Neutrophils # (test code = Neutrophils 3139 0549-2552 #) [facility] HospitalDdcttugERSYNIZBAS0822-81-86 12:55:00 Test Item Value Reference Range Interpretation Comments Lymphocytes # (test code = Lymphocytes 9605 818-5021 #) [facility] HospitalDocknitAGWYLKKWTQ7627-46-49 12:55:00 Test Item Value Reference Range Interpretation Comments Monocytes # (test code = Monocytes #) 350 200-950 [facility]2021-10-07 12:55:00 Test Item Value Reference Range Interpretation Comments Albumin Lvl (test code = Albumin Lvl) 3.7 3.6-5.1 [facility] HospitalUpgcsvgLSTEGTIBXB8475-39-74 12:55:00 Test Item Value Reference Range Interpretation Comments Eosinophils # (test code = Eosinophils 72 15-500 #) [facility] HospitalTvtpiohDLXLLORKHY0077-51-55 12:55:00 Test Item Value Reference Range Interpretation Comments Basophils # (test code 29 See_Comment [Aut omated message] The = Basophils #) system which generated this result tra nsmitted reference range : <=200. The reference r brice was not used to int erpret this result as normal/abnormal . [facility] HospitalGcuybmzXJPYYQFMWM6100-14-84 12:55:00 Test Item Value Reference Range Interpretation Comments Segs (test code = Segs) 65.4 [place] 870041-10-07 12:55:00 Test Item Value Reference Range Interpretation Comments Lymphocytes (test code = Lymphocytes) 25.2 [place] 870041-10-07 12:55:00 Test Item Value Reference Range Interpretation Comments Monocytes (test code = Monocytes) 7.3 [facility] HospitalNcopfawIHRNBALXNN7395-73-10 12:55:00 Test Item Value Reference Range Interpretation Comments Eosinophils (test code = Eosinophils) 1.5 [place] 870041-10-07 12:55:00 Test Item Value Reference Range Interpretation Comments Basophils (test code = Basophils) 0.6 [place] 870041-10-07 12:55:00 Test Item Value Reference Range Interpretation Comments Sed Rate (test code = Sed Rate) 22 [facility]oghrjFWIPAZJOOA5248-46-22 12:55:00 Test Item Value Reference Range Interpretation Comments C-REACTIVE PROTEIN (test code = 2.9 C-REACTIVE PROTEIN) [facility]2021-10-07 12:55:00 Test Item Value Reference Range Interpretation Comments Globulin (test code = Globulin) 3.1 1.9-3.7 [facility]2021-10-07 12:55:00 Test Item Value Reference Range Interpretation Comments Vitamin B12 Lvl (test code = Vitamin 635 098-8937 B12 Lvl) [facility]2021-10-07 12:55:00 Test Item Value Reference Range Interpretation Comments Glucose Lvl (test code = Glucose Lvl) 151 65-99 [facility]2021-10-07 12:55:00 Test Item Value Reference Range Interpretation Comments BUN (test code = BUN) 17 7-25 [facility]2021-10-07 12:55:00 Test Item Value Reference Range Interpretation Comments A/G Ratio (test code = A/G Ratio) 1.2 1.0-2.5 [place] 852421-10-07 12:55:00 Test Item Value Reference Range Interpretation Comments Creatinine Lvl (test code = Creatinine 0.49 0.50-1.05 Lvl) [place] 852421-10-07 12:55:00 Test Item Value Reference Range Interpretation Comments eGFR NON-AFR. BAR[place]IAN (test code = 107 eGFR NON-AFR. BARBADIAN) [place] 852421-10-07 12:55:00 Test Item Value Reference Range Interpretation Comments eGFR (test code = eGFR 124 ) [place] 852421-10-07 12:55:00 Test Item Value Reference Range Interpretation Comments B/C Ratio (test code = B/C Ratio) 35 6-22 [place] 852421-10-07 12:55:00 Test Item Value Reference Range Interpretation Comments Sodium Lvl (test code = Sodium Lvl) 140 135-146 [place] 852421-10-07 12:55:00 Test Item Value Reference Range Interpretation Comments Potassium Lvl (test code = Potassium 4.0 3.5-5.3 Lvl) [place] 852421-10-07 12:55:00 Test Item Value Reference Range Interpretation Comments Chloride Lvl (test code = Chloride Lvl) 105 98-110 [place] 852421-10-07 12:55:00 Test Item Value Reference Range Interpretation Comments CO2 (test code = CO2) 29 20-32 [place] 852421-10-07 12:55:00 Test Item Value Reference Range Interpretation Comments Calcium Lvl (test code = Calcium Lvl) 8.7 8.6-10.4 [place] 852421-10-07 12:55:00 Test Item Value Reference Range Interpretation Comments Total Protein (test code = Total 6.8 6.1-8.1 Protein) [place] 852421-10-07 12:55:00 Test Item Value Reference Range Interpretation Comments Bili Total (test code = Bili Total) 0.6 0.2-1.2 [place] 852421-10-07 12:55:00 Test Item Value Reference Range Interpretation Comments Albumin Lvl (test code = Albumin Lvl) 3.7 3.6-5.1 [place] 852421-10-07 12:55:00 Test Item Value Reference Range Interpretation Comments Globulin (test code = Globulin) 3.1 1.9-3.7 [place] 852421-10-07 12:55:00 Test Item Value Reference Range Interpretation Comments A/G Ratio (test code = A/G Ratio) 1.2 1.0-2.5 [facility]2021-10-07 12:55:00 Test Item Value Reference Range Interpretation Comments Bili Total (test code = Bili Total) 0.6 0.2-1.2 [place] 852421-10-07 12:55:00 Test Item Value Reference Range Interpretation Comments Alk Phos (test code = Alk Phos) 59 37-153 [facility]2021-10-07 12:55:00 Test Item Value Reference Range Interpretation Comments ASPARTATE TRANSAMINASE (test code = 18 10-35 ASPARTATE TRANSAMINASE) [place] 852421-10-07 12:55:00 Test Item Value Reference Range Interpretation Comments ALANINE AMINOTRANSFERASE (test code = 23 6-29 ALANINE AMINOTRANSFERASE) [place] 870041-10-07 12:55:00 Test Item Value Reference Range Interpretation Comments WBC X 10x3 (test code = WBC X 10x3) 4.8 3.8-10.8 [facility] HospitalYzlxcsqONZVVSYHMU0624-62-59 12:55:00 Test Item Value Reference Range Interpretation Comments RBC X 10x6 (test code = RBC X 10x6) 4.50 3.80-5.10 [place] 870041-10-07 12:55:00 Test Item Value Reference Range Interpretation Comments Hgb (test code = Hgb) 12.1 11.7-15.5 [facility]2021-10-07 12:55:00 Test Item Value Reference Range Interpretation Comments Alk Phos (test code = Alk Phos) 59 37-153 [facility] HospitalUkhdbphBRBMPFCJFF1450-55-61 12:55:00 Test Item Value Reference Range Interpretation Comments Hct (test code = Hct) 37.8 35.0-45.0 [place] 870041-10-07 12:55:00 Test Item Value Reference Range Interpretation Comments MCV (test code = MCV) 84.0 80.0-100.0 [place] 870041-10-07 12:55:00 Test Item Value Reference Range Interpretation Comments MCH (test code = MCH) 26.9 pg 27.0-33.0 [facility] HospitalDwatqhnTZEVKUDQYV5202-01-09 12:55:00 Test Item Value Reference Range Interpretation Comments MCHC (test code = MCHC) 32.0 32.0-36.0 [place] 870041-10-07 12:55:00 Test Item Value Reference Range Interpretation Comments RDW (test code = RDW) 14.0 11.0-15.0 [place] 870041-10-07 12:55:00 Test Item Value Reference Range Interpretation Comments Platelet (test code = Platelet) 151 140-400 [place] 870041-10-07 12:55:00 Test Item Value Reference Range Interpretation Comments MPV (test code = MPV) 12.1 7.5-12.5 [place] 870041-10-07 12:55:00 Test Item Value Reference Range Interpretation Comments Neutrophils # (test code = Neutrophils 3139 4647-0329 #) [facility] HospitalExrqdasZEGOSRAZBW5542-78-45 12:55:00 Test Item Value Reference Range Interpretation Comments Lymphocytes # (test code = Lymphocytes [phone] #) [facility] HospitalTyvwxgkRQZPGLLQSQ7054-44-09 12:55:00 Test Item Value Reference Range Interpretation Comments Monocytes # (test code = Monocytes #) 350 200-950 [facility]2021-10-07 12:55:00 Test Item Value Reference Range Interpretation Comments ASPARTATE TRANSAMINASE (test code = 18 10-35 ASPARTATE TRANSAMINASE) [place] 870041-10-07 12:55:00 Test Item Value Reference Range Interpretation Comments Eosinophils # (test code = Eosinophils 72 15-500 #) [facility] HospitalKowovznWAAITVRFOC0264-68-27 12:55:00 Test Item Value Reference Range Interpretation Comments Basophils # (test code 29 See_Comment [Aut omated message] The = Basophils #) system which generated this result tra nsmitted reference range : <=200. The reference r brice was not used to int erpret this result as normal/abnormal . [facility] HospitalCiqbvapZCOYVTMQYS2842-91-24 12:55:00 Test Item Value Reference Range Interpretation Comments Segs (test code = Segs) 65.4 [place] 870041-10-07 12:55:00 Test Item Value Reference Range Interpretation Comments Lymphocytes (test code = Lymphocytes) 25.2 [facility] Mkqstnb3360-56-17 22:09:00 Test Item Value Reference Range Interpretation Comments Cholesterol (test 107 mg/dL 0-200 N code = CHOL) Triglycerides (test 76 mg/dL 9-200 N code = TRIG) HDL (test code = 36 mg/dL 50-60 L HDL) Chol/HDL (test code 3.0 Ratio 0.0-4.4 N = CHOLPHDL) LDL, Calculated 56 0-130 N (NOTE)RISK O F HEART (test code = LDLC) DISEASEPu blished by [place] Heart AssociationAnal yte Optimal Boderl ine Increased RiskC HOL <200 200-239 >240TRI G <150 150-199 >200HD L Male: >60 <40HDL Fema le: >60 <50LDL <100 130-159 >160LDL NEAR OPTIMAL IS 100- 129 VLDL (test code = 15 mg/dL 5-40 N VLDL) LDL/HDL (test code = 2 LDLPHDL) Comprehensive Metabolic Qlrwl4584-43-94 22:09:00 Test Item Value Reference Range Interpretation [...] into account, if the informationis provided. If e race is not provided , and [...] by the [employer],http ://nkd ep.nih.gov [id number] 22:05:00 Test Item Value Reference Range Interpretation Comments NT ProBnp (test code = PBNP) 1920 pg/mL 0-124 H CBC with Konaeqzetjst0274-92-62 18:24:00 Test Item Value Reference Range Interpretation [...] code = ALYMPH) 1.4 K/cumm 0.5-4.6 [place] Abs (test code = AMONO) 0.3 K/cumm 0.0-1.2 N Eos Abs (test code = AEOS) 0.09 K/cumm 0.00-0.74 N Baso Abs (test code = ABASO) 0.0 K/cumm 0.00-0.21 N HEMOGLOBIN A1C Test Item Value Reference Range Interpretation Comments A1C (test code = 4548-4) 6.8% SARS-COV 2 AntigenSARS-COV 2 Antigen"
[2023-04-15 04:26] LABS: Absolute Lymphocytes (CBC) 1.7 K/uL (0.7-4.9); Hematocrit 42.7 % (36.0-45.0); Lymphocytes % 26.6 % (15.3-44.8); MCV 87.6 fL (80-100); MPV 10.3 fL (7.6-11.3); Platelets 147 thou/uL (152-406); RBC Red Blood Cell Count 4.88 M/uL (3.86-4.86)
[2023-04-15 04:31] LABS: Protime INR 1.4
[2023-04-15 04:40] LABS: Magnesium 2.2 mg/dL (1.6-2.4); Potassium 3.7 mEq/L (3.5-5.1); Troponin High Sensitivity 10.9 pg/mL (<58.9)
--- NOTE | 2023-04-15 06:56 | ER ---
Nurse's Notes [facility] [place] Name: Sukh York Age: 63 yrs Sex: Female : 1960 Arrival Date: 04/15/2023 Time: 01:04 Bed 17 Private MD: Diagnosis: Chest pain, unspecified Presentation: 04/15 01:38 Chief complaint: Patient states: 2 HR CHEST TIGHTNESS RADIATING LEFT ARM. Coronavirus bp screen: At this time, the client does not indicate any symptoms associated with coronavirus-19. Ebola Screen: No symptoms or risks identified at this time. Initial Sepsis Screen: Does the patient meet any 2 criteria? No. Patient's initial sepsis screen is negative. Does the patient have a suspected source of infection? No. Patient's initial sepsis screen is negative. Risk Assessment: Do you want to hurt yourself or someone else? Patient reports no desire to harm self or others. Onset of symptoms was April 15, 2023 at 00:00. 01:38 Method Of Arrival: Ambulatory bp 01:38 Acuity: RADHA 3 bp Historical: - Allergies: 01:39 PENICILLINS; bp - PMHx: 01:39 Aneurysm; Hypertension; Diabetes - NIDDM; COPD; CHF; bp - PSHx: 01:39 defibrillator; bp - Immunization history:: Adult Immunizations up to date. - Social history:: Smoking status: Patient denies any tobacco usage or history of. - Family history:: not pertinent. Screenin:50 [facility] ED Fall Risk Assessment (Adult) History of falling in the last 3 months, jb4 including since admission No falls in past 3 months (0 pts) Confusion or Disorientation No (0 pts) Score/Fall Risk Level 0 - 2 = Low Risk Oriented to surroundings, Maintained a safe environment. Abuse screen: Denies threats or abuse. Nutritional screening: No deficits noted. Tuberculosis screening: No symptoms or risk factors identified. Assessment: 03:15 General: Appears in no apparent distress. uncomfortable, Behavior is calm, cooperative, jb4 appropriate for age. Pain: Complains of pain in chest Pain does not radiate. Pain currently is 5 out of 10 on a pain scale. Neuro: Level of Consciousness is awake, alert, obeys commands, Oriented to person, place, time, situation. Cardiovascular: Patient's skin is warm and dry. Respiratory: Airway is patent Respiratory effort is even, unlabored, Respiratory pattern is regular, symmetrical. GI: No signs and/or symptoms were reported involving the gastrointestinal system. : No signs and/or symptoms were reported regarding the genitourinary system. EENT: No signs and/or symptoms were reported regarding the EENT system. Derm: Skin is intact, Skin is pink, warm \T\ dry. Musculoskeletal: Circulation, motion, and sensation intact. Range of motion: intact in all extremities. 04:00 Reassessment: Patient appears in no apparent distress at this time. Patient and/or jb4 family updated on plan of care and expected duration. Pain level reassessed. Patient is alert, oriented x 3, equal unlabored respirations, skin warm/dry/pink. 05:00 Reassessment: Patient appears in no apparent distress at this time. Patient and/or jb4 family updated on plan of care and expected duration. Pain level reassessed. Patient is alert, oriented x 3, equal unlabored respirations, skin warm/dry/pink. 06:00 Reassessment: Patient appears in no apparent distress at this time. Patient and/or jb4 family updated on plan of care and expected duration. Pain level reassessed. Patient is alert, oriented x 3, equal unlabored respirations, skin warm/dry/pink. 07:06 Reassessment: Patient appears in no apparent distress at this time. Patient and/or jb4 family updated on plan of care and expected duration. Pain level reassessed. Patient is alert, oriented x 3, equal unlabored respirations, skin warm/dry/pink. Vital Signs: 01:38 BP 121 / 84; Pulse 52; Resp 17; Temp 98; Pulse Ox 97% ; bp 05:35 BP 94 / 54; Pulse 60; Resp 16; Pulse Ox 96% on R/A; jb4 05:45 BP 107 / 52; Pulse 63; Resp 16; Pulse Ox 99% on R/A; jb4 06:50 BP 98 / 52; Pulse 61; Resp 16; Pulse Ox 98% on R/A; jb4 ED Course: 01:09 Patient arrived in ED. ag3 01:11 Gus Moore PA is PHCP. cp 01:11 Dionisio Robles MD is Attending Physician. cp 01:39 Triage completed. bp 01:39 Arm band placed on. bp 02:16 XRAY Chest (1 view) In Process Unspecified. EDMS 03:36 CT Head Brain wo Cont In Process Unspecified. EDMS 05:30 Facundo Butler, RN is Primary Nurse. jb4 06:50 Patient has correct armband on for positive identification. Bed in low position. Call jb4 light in reach. Side rails up X 1. 06:50 No provider procedures requiring assistance completed. IV discontinued, intact, jb4 bleeding controlled, No redness/swelling at site. Pressure dressing applied. Administered Medications: No medications were administered Medication: 06:50 VIS not applicable for this client. jb4 Outcome: 06:50 Discharged to home ambulatory, jb4 06:50 Condition: stable 06:50 Discharge instructions given to patient, Instructed on discharge instructions, follow up and referral plans. Demonstrated understanding of instructions, follow-up care, 06:56 Discharge ordered by . sp4 07:08 Patient left the ED. jb4 Signatures: Dispatcher [employer] EDWA Gus Moore PA PA cp Facundo Butler, RN RN jb4 Josiah Benitez RN RN Marlene De León ag3 Dionisio Robles MD MD sp4
--- NOTE | 2023-04-15 06:56 | EDPHYS ---
Physician Documentation [facility] [place] Name: Sukh York Age: 63 yrs Sex: Female : 1960 Arrival Date: 04/15/2023 Time: 01:04 Bed 17 Private MD: ED Physician Dionisio Robles HPI: 04/15 01:45 This 63 yrs old Female presents to ER via Ambulatory with complaints of cp Weakness, Dizziness, Chest Pain. 01:45 The patient or guardian reports chest pain that is located primarily in the anterior cp chest wall. 01:45 Onset: 2 hour(s) ago. Associated signs and symptoms: Pertinent positives: dizziness, cp weakness. 05:57 Patient care assumed from PA. sp4 Historical: - Allergies: 01:39 PENICILLINS; bp - PMHx: 01:39 Aneurysm; Hypertension; Diabetes - NIDDM; COPD; CHF; bp - PSHx: 01:39 defibrillator; bp - Immunization history:: Adult Immunizations up to date. - Social history:: Smoking status: Patient denies any tobacco usage or history of. - Family history:: not pertinent. ROS: 01:50 Constitutional: Negative for body aches, chills, fever, poor PO intake, cp 01:50 Cardiovascular: Positive for chest pain, cp 01:50 Neuro: Positive for dizziness, weakness, Negative for altered mental status, 05:57 All other systems are negative, sp4 06:54 Constitutional: Negative for fever, chills, and weight loss, sp4 Exam: 01:53 Constitutional: The patient appears in no acute distress, alert, awake, cp non-diaphoretic, non-toxic, well developed, well nourished, obese, 01:53 Head/Face: Normocephalic, atraumatic. cp 01:56 ECG was reviewed by the Attending Physician. cp 05:57 EKG at 0 148 reveals normal sinus rhythm with left bundle branch block. Pacer spikes sp4 were noted 06:54 Constitutional: This is a well developed, well nourished patient who is awake, alert, sp4 and in no acute distress. Eyes: Pupils equal round and reactive to light, extra-ocular motions intact. Lids and lashes normal. Conjunctiva and sclera are not injected. Cornea within normal limits. Periorbital areas with no swelling, redness, or edema. ENT: Nares patent. No nasal discharge, no septal abnormalities noted. Tympanic membranes are normal and external auditory canals are clear. Oropharynx with no redness, swelling, or masses, exudates, or evidence of obstruction, uvula midline. Mucous membranes moist. Neck: Trachea midline, no thyromegaly or masses palpated, and no cervical lymphadenopathy. Supple, full range of motion without nuchal rigidity, or vertebral point tenderness. Chest/axilla: Normal chest wall appearance and motion. Nontender with no deformity. No lesions are appreciated. Cardiovascular: Regular rate and rhythm with a normal S1 and S2. No gallops, murmurs, or rubs. Normal PMI, no JVD. No pulse deficits. Respiratory: Lungs have equal breath sounds bilaterally, clear to auscultation and percussion. No rales, rhonchi or wheezes noted. No increased work of breathing, no retractions or nasal flaring. Abdomen/GI: Soft, non-tender, with normal bowel sounds. No distension or tympany. No guarding or rebound. No evidence of tenderness throughout. Back: No spinal tenderness. No costovertebral tenderness. Skin: Warm, dry with normal turgor. Normal color with no rashes, no lesions, and no evidence of cellulitis. MS/ Extremity: Pulses equal, no cyanosis. Neurovascular intact. Full, normal range of motion. Neuro: Awake and alert, GCS 15, oriented to person, place, time, and situation. Cranial nerves II-XII grossly intact. Motor strength 5/5 in all extremities. Sensory grossly intact. Psych: Awake, alert, with orientation to person, place and time. Behavior, mood, and affect are within normal limits Vital Signs: 01:38 BP 121 / 84; Pulse 52; Resp 17; Temp 98; Pulse Ox 97% ; bp 05:35 BP 94 / 54; Pulse 60; Resp 16; Pulse Ox 96% on R/A; jb4 05:45 BP 107 / 52; Pulse 63; Resp 16; Pulse Ox 99% on R/A; jb4 06:50 BP 98 / 52; Pulse 61; Resp 16; Pulse Ox 98% on R/A; jb4 MDM: 01:43 Patient medically screened. cp 05:51 ED course: Chest - COMPARISON: January 23, 2023. FINDINGS: Brain: Calcified meningioma sp4 again visualized along the midline falx to the left of midline near the vertex. No mass effect. No hemorrhage. No significant white matter disease. Ventricles: Unremarkable. No ventriculomegaly. Bones/joints: Unremarkable. No acute skull fracture. Soft tissues: Unremarkable. Sinuses: Bilateral maxillary sinus mucosal thickening, chronic. Mastoid air cells: No significant mastoid fluid. IMPRESSION: No acute intracranial findings. No hemorrhage.. 06:00 ED course: CT - COMPARISON: January 23, 2023. FINDINGS: Brain: Calcified meningioma sp4 again visualized along the midline falx to the left of midline near the vertex. No mass effect. No hemorrhage. No significant white matter disease. Ventricles: Unremarkable. No ventriculomegaly. Bones/joints: Unremarkable. No acute skull fracture. Soft tissues: Unremarkable. Sinuses: Bilateral maxillary sinus mucosal thickening, chronic. Mastoid air cells: No significant mastoid fluid. IMPRESSION: No acute intracranial findings. No hemorrhage.. ED course: COMPARISON: Chest radiograph January 21, 2023 FINDINGS: LUNGS: Unremarkable. No consolidation. PLEURAL SPACE: Unremarkable. No pneumothorax. HEART: Unremarkable. No cardiomegaly. MEDIASTINUM: Unremarkable. Normal mediastinal contour. BONES/JOINTS: Multilevel degenerative change of the spine is present. No acute fracture. VASCULATURE: Atherosclerosis of the aorta is present. TUBES, LINES AND DEVICES: Left-sided pacemaker is noted. UPPER ABDOMEN: Unremarkable as visualized. IMPRESSION: No acute cardiopulmonary process. . 06:53 Data reviewed: vital signs, nurses notes, old medical records, lab test result(s), EKG, sp4 radiologic studies, CT scan, plain films. Consideration of Admission/Observation Escalation of care including admission/observation considered. ED course: Patient's second troponin is negative. Patient is feeling better. Will discharge home, will recommend follow-up with room designer in 5 to 6 days. 04/15 01:56 Order name: Basic Metabolic Panel; Complete Time: 05:50 cp 04/15 01:56 Order name: CBC with Diff; Complete Time: 05:50 cp 04/15 01:56 Order name: Magnesium; Complete Time: 05:50 cp 04/15 01:56 Order name: NT PRO-BNP; Complete Time: 05:50 cp 04/15 01:56 Order name: PT-INR; Complete Time: 05:50 cp 04/15 01:56 Order name: Troponin HS; Complete Time: 05:50 cp 04/15 05:50 Order name: Troponin High Sensitivity; Complete Time: 06:51 sp4 04/15 01:56 Order name: XRAY Chest (1 view) 04/15 02:27 Order name: CT Head Brain wo Cont 04/15 01:56 Order name: EKG; Complete Time: 01:56 04/15 01:56 Order name: Cardiac monitoring; Complete Time: 05:03 04/15 01:56 Order name: EKG - Nurse/Tech; Complete Time: 02:13 cp 04/15 01:56 Order name: IV Saline Lock; Complete Time: 05:03 04/15 01:56 Order name: Labs collected and sent; Complete Time: 05:03 04/15 01:56 Order name: O2 Per Protocol; Complete Time: 05:03 04/15 01:56 Order name: O2 Sat Monitoring; Complete Time: 05:03 cp EC:56 Rate is 60 beats/min. Rhythm is regular. GA interval is normal. QRS interval is cp prolonged at 148 msec. QT interval is normal. Interpreted by me. Reviewed by me. Administered Medications: No medications were administered Disposition: 06:54 Co-signature as Attending Physician, Dionisio Robles MD I agree with the assessment sp4 and plan of care. I reviewed the patient's care provided by Advanced Practice Provider \T\ agree w/ the diagnosis \T\ care plan. I personally saw the pt \T\ performed a substantive portion of the visit, incldng all aspects of the (History/Exam/Medical Decision Making). Disposition Summary: 04/15/23 06:56 Discharge Ordered Problem: new sp4 Symptoms: have improved sp4 Condition: Stable sp4 Diagnosis - Chest pain, unspecified sp4 Followup: sp4 - With: Private Physician - When: 5 - 6 days - Reason: Recheck today's complaints Discharge Instructions: - Discharge Summary Sheet sp4 - Nonspecific Chest Pain, Adult sp4 Forms: - Patient Portal Instructions sp4 Signatures: Dispatcher [employer] EDMS Gus Moore PA PA cp Peltier, Brian, RN RN Dionisio Johnson MD MD sp4
[2023-04-15 07:13] VITALS: TEMP 98
[2023-04-15 07:18] VITALS: BP 98/52; O2SAT 98
--- NOTE | 2023-04-15 19:55 | RAD REPORT ---
EXAM DESCRIPTION: RAD - Chest Single View - 04/15/2023 2:14 am CLINICAL HISTORY: The patient is 63 years old and is Female; CHEST PAIN TECHNIQUE: Frontal view of the chest. COMPARISON: Chest radiograph January 21, 2023 FINDINGS: LUNGS: Unremarkable. No consolidation. PLEURAL SPACE: Unremarkable. No pneumothorax. HEART: Unremarkable. No cardiomegaly. MEDIASTINUM: Unremarkable. Normal mediastinal contour. BONES/JOINTS: Multilevel degenerative change of the spine is present. No acute fracture. VASCULATURE: Atherosclerosis of the aorta is present. TUBES, LINES AND DEVICES: Left-sided pacemaker is noted. UPPER ABDOMEN: Unremarkable as visualized. IMPRESSION: No acute cardiopulmonary process. Electronically signed by: Ada Painting MD 04/15/2023 02:42 AM [employer]ISH[employer] Due to temporary technical issues with the PACS/Fluency reporting system, reports are being signed by the in house radiologists without review as a courtesy to insure prompt reporting. The interpreting radiologist is fully responsible for the content of the
--- NOTE | 2023-04-16 10:30 | RAD REPORT ---
EXAM DESCRIPTION: CT - Head Brain Wo Cont - 04/15/2023 3:34 am CLINICAL HISTORY: The patient is 63 years old and is Female; DIZZINESS TECHNIQUE: Axial computed tomography images of the head/brain without intravenous contrast. Sagitt al and coronal reformatted images were created and reviewed. This CT exam was performed using one o r more of the following dose reduction techniques: automated exposure control, adjustment of the mA and/or kV according to patient size, and/or use of iterative reconstruction technique. COMPARISON: January 23, 2023. FINDINGS: Brain: Calcified meningioma again visualized along the midline falx to the left of midli ne near the vertex. No mass effect. No hemorrhage. No significant white matter disease. Ventricles: Unremarkable. No ventriculomegaly. Bones/joints: Unremarkable. No acute skull fracture. Soft tissues: Unremarkable. Sinuses: Bilateral maxillary sinus mucosal thickening, chronic. Mastoid air cells: No significant mastoid fluid. IMPRESSION: No acute intracranial findings. No hemorrhage. Electronically signed by: Sarah Awan MD 04/15/2023 04:52 AM OFFICE CLERK ROUTINE Due to temporary technical issues with the PACS/Fluency reporting system, reports are being signed by the in house radiologist without review as a courtesy to ensure prompt reporting. The interpreting r adiologist is fully responsible for the content of the report.
--- NOTE | 2023-04-17 15:24 | EKG ---
Test Date: 2023-04-15 Test Time: 01:48:45 Cleaner Touch Up Worker: ELLA MEASUREMENT RESULTS: Intervals: Rate: 60 DE: 190 QRSD: 148 QT: 452 QTc: 452 [place]: P: 79 DE: 190 QRS: -27 T: 77 INTERPRETIVE STATEMENTS: Normal sinus rhythm Left bundle branch block Abnormal ECG Compared to ECG 03/27/2023 02:39:20 Left bundle-branch block now present Left-axis deviation no longer present Left ventricular hypertrophy no longer present Early repolarization no longer present Electronically Signed On 04-17-23 15:14:36 FAMILY PRACTICE MD by Lan Dawson
== END 2023-04-15 07:08 | disposition home or self-care (01) ==
LOC: ER 01:04
DX: R07.89 Other chest pain (principal); R53.1 Weakness; R42 Dizziness and giddiness; Z88.0 Allergy status to penicillin; I10 Essential (primary) hypertension; E11.8 Type 2 diabetes mellitus with unspecified complications; J44.9 Chronic obstructive pulmonary disease, unspecified; I50.9 Heart failure, unspecified
CPT/HCPCS: 36415; 70450; 71045; 80048; 83735; 83880; 84484; 85025; 85610; 93005; 99283

== ENCOUNTER → 2023-05-24 | Emergency (ER) | payer OTHER ==
[2023-05-24 11:08] LABS: Absolute Lymphocytes (CBC) 1.1 K/uL (0.7-4.9); Hematocrit 37.8 % (36.0-45.0); MCV 89.7 fL (80-100); MPV 10.2 fL (7.6-11.3); Platelets 149 thou/uL (152-406); RBC Red Blood Cell Count 4.21 M/uL (3.86-4.86)
[2023-05-24 11:26] LABS: Potassium 3.3 mEq/L (3.5-5.1); Troponin High Sensitivity 12.8 pg/mL (<58.9)
--- NOTE | 2023-05-24 11:43 | RAD REPORT ---
EXAM DESCRIPTION: RAD - Chest Single View - 05/24/2023 11:37 am CLINICAL HISTORY: CHEST PAIN Chest pain. COMPARISON: Chest Single View dated 04/15/2023; Chest Single View dated 03/27/2023; Chest Single View dated 01/21/2023; Chest Single View dated 01/01/2022 FINDINGS: Portable technique limits examination quality. The lungs are grossly clear. The heart is mildly enlarged in size. No displaced fractures.Multi lead pacer/defibrillator device present. IMPRESSION: No acute intrathoracic process suspected.
--- NOTE | 2023-05-24 12:18 | EDPHYS ---
Physician Documentation [facility] [place] Name: Sukh York Age: 63 yrs Sex: Female : 1960 Arrival Date: 05/24/2023 Time: 10:29 Bed 2 Private MD: ED Physician Fran Gonzales HPI: 05/24 10:43 This 63 yrs old Female presents to ER via Unassigned with complaints of Heart ec2 Problem When Laying Down, Chest Pain - tightness. 10:43 Patient arrives today for evaluation of chest tightness. Patient reports has been ec2 experiencing chest tightness for the past 8 hours. Patient reports no specific alleviating factors, states that it is worse with laying down. Patient reports no significant difficulty breathing. Reports history of hypertension, diabetes, CHF. Patient also has a pacemaker in place, is on anticoagulation.. Historical: - Allergies: 10:47 PENICILLINS; cm10 - PMHx: 10:47 Aneurysm; CHF; COPD; Hypertension; Diabetes - NIDDM; cm10 - PSHx: 10:47 defibrillator; cm10 - Immunization history:: Adult Immunizations up to date. - Social history:: Smoking status: Patient denies any tobacco usage or history of. ROS: 10:43 Constitutional: as per hpi ec2 Exam: 10:43 Constitutional: GEN: NAD Head: atraumatic Eyes: EOMI Ears: External ears are ec2 normal. CV: regular rate, no significant lower extremity edema. LUNGS: no respiratory distress ABD: non-distended SKIN: no evidence of rashes MSK: no evidence of trauma NEURO: moves all extremities equally Vital Signs: 10:46 BP 120 / 73; Pulse 60; Resp 16; Temp 97.9; Pulse Ox 100% on R/A; Weight 106.59 kg; cm10 Height 5 ft. 1 in. ; Pain 8/10; 11:15 BP 95 / 57; Pulse 60; Resp 20; Pulse Ox 98% ; ap3 12:16 BP 97 / 51; Pulse 60; Resp 18; Pulse Ox 96% on R/A; ap3 10:46 Body Mass Index 44.40 (106.59 kg, 154.94 cm) cm10 10:46 Pain Scale: Adult cm10 MDM: 10:39 Patient medically screened. ec2 10:43 ED course: Patient arrives today for evaluation of chest tightness. Examination ec2 remarkable for well-appearing nontoxic individual is otherwise in no acute distress. Will obtain a cardiac workup and reassess the patient. Currently considering ACS, will suspicion for PE or dissection. Additionally considering MSK pain.. 10:45 ED course: Additionally of note patient reports that she is scheduled to have a new ec2 pacemaker placed in 3 days. Scheduled to have this done in [place].. 11:30 Data reviewed: vital signs. ED course: Metabolic profile shows slight hypokalemia, ec2 reassuring CBC, BNP elevated at 2200, troponin within normal ranges at 12.8. . 12:16 ED course: When comparing to external records, the BNP is relatively elevated. I ec2 suspect patient is describing orthopnea when she describes chest tightness when laying flat. I instructed her on increasing her Bumex twice daily, I will also prescribe her potassium supplementation given the hypokalemia today. Patient discharged home. Return precautions given.. 05/24 10:36 Order name: Basic Metabolic Panel; Complete Time: 11:28 ec2 05/24 10:36 Order name: CBC with Diff; Complete Time: 11:28 ec2 05/24 10:36 Order name: NT PRO-BNP; Complete Time: 11:28 ec2 05/24 10:36 Order name: Troponin HS; Complete Time: 11:28 ec2 05/24 10:36 Order name: XRAY Chest (1 view); Complete Time: 11:46 ec2 05/24 10:36 Order name: EKG; Complete Time: 10:37 ec2 05/24 10:36 Order name: Cardiac monitoring; Complete Time: 10:51 ec2 05/24 10:36 Order name: EKG - Nurse/Tech; Complete Time: 10:51 ec2 05/24 10:36 Order name: IV Saline Lock; Complete Time: 10:58 ec2 05/24 10:36 Order name: Labs collected and sent; Complete Time: 10:58 ec2 05/24 10:36 Order name: O2 Per Protocol; Complete Time: 10:42 ec2 05/24 10:36 Order name: O2 Sat Monitoring; Complete Time: 10:42 ec2 Administered Medications: No medications were administered Disposition Summary: 05/24/23 12:17 Discharge Ordered Notes: Location: Home ec2 Condition: Stable ec2 Diagnosis - Unspecified combined systolic (congestive) and diastolic (congestive) heart failure ec2 Followup: ec2 - With: Private Physician - When: - Reason: Recheck today's complaints Discharge Instructions: - Discharge Summary Sheet ec2 - Heart Failure Exacerbation ec2 Forms: - Medication Reconciliation Form ec2 - Thank You Letter ec2 - Antibiotic Education ec2 - Prescription Opioid Use ec2 - Patient Portal Instructions ec2 - Leadership Thank You Letter ec2 Prescriptions: - potassium chloride 20 mEq Oral tablet, extended release - take 1 tablet ORAL route 2 times per day; 14 tablet; Refills: 0, Product ec2 Selection Permitted Signatures: Dispatcher [employer] Mirta Argueta RN RN cm10 Fran Gonzales MD MD ec2
--- NOTE | 2023-05-24 12:18 | ER ---
Nurse's Notes [facility] Name: Sukh York Age: 63 yrs Sex: Female : 1960 Arrival Date: 05/24/2023 Time: 10:29 Bed 2 Private MD: Diagnosis: Unspecified combined systolic (congestive) and diastolic (congestive) heart failure Presentation: 05/24 10:46 Chief complaint: Patient states: Left sided chest tightness onset today at 0330 this cm10 morning. Pt stats that she has a pacemaker and feels the tightness around the pacemaker. Coronavirus screen: Vaccine status: Patient reports receiving the 2nd dose of the covid vaccine. Client denies travel out of the [place] in the last 14 days. Ebola Screen: Patient denies travel to an Ebola-affected area in the 21 days before illness onset. No symptoms or risks identified at this time. Initial Sepsis Screen: Does the patient meet any 2 criteria? No. Patient's initial sepsis screen is negative. Does the patient have a suspected source of infection? No. Patient's initial sepsis screen is negative. Risk Assessment: Do you want to hurt yourself or someone else? Patient reports no desire to harm self or others. Onset of symptoms was May 24, 2023. 10:46 Method Of Arrival: Ambulatory cm10 10:46 Acuity: RADHA 2 cm10 Historical: - Allergies: 10:47 PENICILLINS; cm10 - PMHx: 10:47 Aneurysm; CHF; COPD; Hypertension; Diabetes - NIDDM; cm10 - PSHx: 10:47 defibrillator; cm10 - Immunization history:: Adult Immunizations up to date. - Social history:: Smoking status: Patient denies any tobacco usage or history of. Screenin:52 Abuse screen: Denies threats or abuse. Nutritional screening: No deficits noted. ap3 Tuberculosis screening: No symptoms or risk factors identified. 11:15 [facility] ED Fall Risk Assessment (Adult) History of falling in the last 3 months, ap3 including since admission No falls in past 3 months (0 pts) Confusion or Disorientation No (0 pts) Intoxicated or Sedated No (0 pts) Impaired Gait No (0 pts) Mobility Assist Device Used No (0 pt) Altered Elimination No (0 pt). Assessment: 10:52 General: Appears in no apparent distress. Behavior is calm, cooperative, appropriate ap3 for age. Pain: Complains of pain in chest Pain does not radiate. Quality of pain is described as aching, pressure, Pain began gradually, early this morning. Cardiovascular: Reports chest pain, Patient's skin is warm and dry. Respiratory: Airway is patent Respiratory effort is even, unlabored, Respiratory pattern is regular, symmetrical. Vital Signs: 10:46 BP 120 / 73; Pulse 60; Resp 16; Temp 97.9; Pulse Ox 100% on R/A; Weight 106.59 kg; cm10 Height 5 ft. 1 in. ; Pain 8/10; 11:15 BP 95 / 57; Pulse 60; Resp 20; Pulse Ox 98% ; ap3 12:16 BP 97 / 51; Pulse 60; Resp 18; Pulse Ox 96% on R/A; ap3 10:46 Body Mass Index 44.40 (106.59 kg, 154.94 cm) cm10 10:46 Pain Scale: Adult cm10 ED Course: 10:34 Patient arrived in ED. mg5 10:34 Fran Gonzales MD is Attending Physician. ec2 10:47 Triage completed. cm10 10:48 Arm band placed on Patient placed in an exam room, on a stretcher, on satellite project site monitor, cm10 on pulse oximetry. 10:51 Patient has correct armband on for positive identification. Placed in gown. Bed in low ap3 position. Call light in reach. Side rails up X 1. satellite project site monitor on. Pulse ox on. NIBP on. 10:51 EKG done, by ED staff, reviewed by Fran Gonzales MD. Patient maintains SpO2 saturation ap3 greater than 95% on room air. 10:58 Initial lab(s) drawn, by or, sent to lab. Inserted saline lock: 20 gauge in right ap3 antecubital area, using aseptic technique. Blood collected. 11:12 XRAY Chest (1 view) In Process Unspecified. EDMS 11:15 Door closed. Noise minimized. Warm blanket given. ap3 11:31 Betty Cameron, RN is Primary Nurse. ap3 12:43 No provider procedures requiring assistance completed. IV discontinued, intact, ap3 bleeding controlled, No redness/swelling at site. Pressure dressing applied. 12:44 Provided Education on: discharge instructions. ap3 Administered Medications: No medications were administered Medication: 10:52 VIS not applicable for this client. ap3 Outcome: 12:17 Discharge ordered by . ec2 12:43 Discharged to home ambulatory, ap3 12:43 Condition: good 12:43 Discharge instructions given to patient, Instructed on discharge instructions, follow up and referral plans. medication usage, Demonstrated understanding of instructions, follow-up care, medications, Prescriptions given X 1, 12:44 Patient left the ED. ap3 Signatures: Dispatcher [employer] Betty Gross RN RN ap3 Mirta Lutz RN RN cm10 Bhupendra Carol mg5 Fran Gonzales MD MD ec2
[2023-05-24 13:32] VITALS: TEMP 97.9
[2023-05-24 13:44] VITALS: BP 97/51; O2SAT 96
--- NOTE | 2023-05-26 12:26 | EKG ---
Test Date: 2023-05-24 Test Time: 10:48:32 Business Technology Analyst: ALP MEASUREMENT RESULTS: Intervals: Rate: 60 DE: 132 QRSD: 146 QT: 452 QTc: 452 [place]: P: 15 DE: 132 QRS: -25 T: 92 INTERPRETIVE STATEMENTS: Electronic atrial pacemaker Left bundle branch block Abnormal ECG Compared to ECG 04/15/2023 01:48:45 Sinus rhythm no longer present Electronically Signed On 05-26-23 12:20:51 PREDICTIVE MAINTENANCE SPECIALIST by Lan Dawson
== END ==
LOC: ER 10:29
DX: I50.40 Unspecified combined systolic (congestive) and diastolic (congestive) heart failure (principal); I10 Essential (primary) hypertension; J44.9 Chronic obstructive pulmonary disease, unspecified; Z95.810 Presence of automatic (implantable) cardiac defibrillator
CPT/HCPCS: 36415; 71045; 80048; 83880; 84484; 85025; 93005; 99285

== ENCOUNTER → 2023-07-02 | Emergency (ER) | payer OTHER ==
[~2023-07-02] MED LIST: MECLIZINE HCL 12.5 MG TAB ONE; NA CHLORIDE 0.9% 500 ML ONE
--- NOTE | 2023-07-02 13:27 | RAD REPORT ---
EXAM DESCRIPTION: CT - Head Brain Wo Cont - 07/02/2023 1:21 pm CLINICAL HISTORY: DIZZINESS Headache, drowsiness, dizziness COMPARISON: Head Brain Wo Cont dated 04/15/2023; Head Brain Wo Cont dated 01/21/2023 TECHNIQUE: All CT scans are performed using dose optimization technique as appropriate and may inclu de automated exposure control or mA/KV adjustment according to patient size. FINDINGS: No intracranial hemorrhage, hydrocephalus or extra-axial fluid collection.No areas of brai n edema or evidence of midline shift. Chronic maxillary sinusitis bilaterally. The calvarium is intact. IMPRESSION: No acute intracranial abnormality.
--- NOTE | 2023-07-02 13:35 | RAD REPORT ---
EXAM DESCRIPTION: RAD - Chest Single View - 07/02/2023 1:30 pm CLINICAL HISTORY: dizziness Chest pain. COMPARISON: <Comparisons> FINDINGS: Portable technique limits examination quality. The lungs are grossly clear. The heart is normal in size. No displaced fractures. Multi lead pacer/de fibrillator device. IMPRESSION: No acute intrathoracic process suspected.
[2023-07-02 13:46] LABS: Hematocrit 36.5 % (36.0-45.0); Lymphocytes % 16.9 % (15.3-44.8); MCV 90.6 fL (80-100); MPV 9.3 fL (7.6-11.3); Platelets 226 thou/uL (152-406); RBC Red Blood Cell Count 4.03 M/uL (3.86-4.86)
[2023-07-02 13:52] LABS: Protime INR 1.72
[2023-07-02 14:03] LABS: Magnesium 1.9 mg/dL (1.6-2.4); Potassium 3.7 mEq/L (3.5-5.1)
--- NOTE | 2023-07-02 15:27 | EDPHYS ---
Physician Documentation [facility] Name: Sukh York Age: 63 yrs Sex: Female : 1960 Arrival Date: 07/02/2023 Time: 12:48 Bed 6 Private MD: Lucy Schaeffer ED Physician Cj León HPI: 07/02 14:45 This 63 yrs old Female presents to ER via Ambulatory with complaints of rn Dizziness. 14:45 The patient presents with dizziness, generalized weakness, lightheadedness. The patient rn presents with sense of spinning. Onset: The symptoms/episode began/occurred 2 week(s) ago. Modifying factors: The symptoms are alleviated by holding head still, lying down, the symptoms are aggravated by movement of head, standing up, changing position. Associated signs and symptoms: Pertinent negatives: abdominal pain, chest pain, head injury, headache, seizure, shortness of breath, syncope, tingling, vomiting. Severity of symptoms: At their worst the symptoms were moderate in the emergency department the symptoms have improved. The patient has experienced similar episodes in the past. Patient reports several episodes of intermittent dizziness. Reports was admitted to [facility] 3 weeks ago, was supposed to have a defibrillator procedure, may be replacement of wires. She states had an correct procedure and had an ablation with complications including right femoral wound with wound VAC. States since then has been having intermittent episodes of dizziness and feeling generalized weakness. Reports several ER visits to [facility] without clear etiology. [facility] last visit showed low potassium and magnesium and sent home with oral supplementation. Denies fever. Denies vomiting. Also has history of vertigo the patient states this feels slightly different. Also takes diuretics and feels a little dehydrated. No chest pain. Defibrillator has not shocked her.. Historical: - Allergies: 13:01 PENICILLINS; ld1 - PMHx: 13:01 Diabetes - NIDDM; COPD; Hypertension; Aneurysm; CHF; ld1 - PSHx: 13:01 defibrillator; ld1 - Immunization history:: Adult Immunizations up to date. - Social history:: Smoking status: Patient denies any tobacco usage or history of. Patient/guardian denies using alcohol. - Family history:: not pertinent. - Hospitalizations: : Patient was recently seen at. ROS: 14:45 Constitutional: Negative for fever, chills, and weight loss, Neck: Negative for injury, rn pain, and swelling, Cardiovascular: Negative for chest pain, palpitations, and edema, Respiratory: Negative for shortness of breath, cough, wheezing, and pleuritic chest pain, Abdomen/GI: Negative for abdominal pain, vomiting, diarrhea, and constipation, Back: Negative for injury and pain, MS/Extremity: Negative for injury and deformity, Skin: Negative for injury, rash, and discoloration, Neuro: Negative for headache, numbness, tingling, and seizure Exam: 14:45 Constitutional: Overweight female, no acute distress. Using her phone Head/Face: rn Normocephalic, atraumatic. ENT: Dry mucous membranes Cardiovascular: Regular rate and rhythm. No pulse deficits. Respiratory: No increased work of breathing, no retractions or nasal flaring. Speaking full sentences. Abdomen/GI: Soft, non-tender MS/ Extremity: Pulses equal, no cyanosis. Neuro: Awake and alert, GCS 15, oriented to person, place, time, and situation. Cranial nerves II-XII grossly intact. Motor strength 5/5 in all extremities. Sensory grossly intact. Cerebellar exam normal. Vital Signs: 13:00 BP 149 / 90; Pulse 84; Resp 18; Temp 98.4(TE); Pulse Ox 100% on R/A; Weight 96 kg; ld1 Height 5 ft. 1 in. ; Pain 8/10; 14:21 BP 118 / 68; Pulse 74; Resp 18; Pulse Ox 100% on R/A; mb9 15:07 BP 121 / 78; Pulse 77; Resp 18; Pulse Ox 99% on R/A; rs5 13:00 Body Mass Index 39.99 (96.00 kg, 154.94 cm) ld1 13:00 Pain Scale: Adult ld1 MDM: 13:00 Patient medically screened. rn 15:25 Differential diagnosis: cardiac arrhythmia, generalized weakness, hypovolemia, rn idiopathic dizziness, near-syncope, vertigo. Data reviewed: vital signs, nurses notes, lab test result(s), EKG, radiologic studies, CT scan, plain films, and as a result, I will discharge patient. Counseling: I had a detailed discussion with the patient and/or guardian regarding the historical points, exam findings, and any diagnostic results supporting the discharge/admit diagnosis, lab results, radiology results, the need for outpatient follow up, to return to the emergency department if symptoms worsen or persist or if there are any questions or concerns that arise at home. Special discussion: I discussed with the patient/guardian in detail that at this point there is no indication for admission to the hospital. It is understood, however, that if the symptoms persist or worsen the patient needs to return immediately for re-evaluation. ED course: No acute findings and workup. Patient has multiple ER visits recently without acute findings. Wound appears to be healing okay and recently taken off wound VAC. No evidence of ischemia or arrhythmia. CT head negative. Has had vertigo before and has been dizzy since most recent admission few weeks ago. No indication for admission or further workup. I have personally reviewed all of the results, including but not limited to blood tests and imaging deemed necessary to safely discharge this patient at this time. All results given to and printed out for patient. I personally went over all the results with the patient and answered all questions. Patient will follow-up with PCP and or specialist as discussed. Return precautions given and understood.. 07/02 13:12 Order name: Basic Metabolic Panel; Complete Time: 14:12 07/02 13:12 Order name: CBC with Diff; Complete Time: 13:49 07/02 13:12 Order name: Magnesium; Complete Time: 14:12 07/02 13:12 Order name: NT PRO-BNP; Complete Time: 14:12 07/02 13:12 Order name: PT-INR; Complete Time: 14:12 07/02 13:12 Order name: Troponin HS; Complete Time: 14:12 07/02 13:12 Order name: CT Head Brain wo Cont; Complete Time: 13:49 07/02 13:12 Order name: XRAY Chest (1 view); Complete Time: 13:49 07/02 13:12 Order name: EKG; Complete Time: 13:12 07/02 13:12 Order name: Cardiac monitoring; Complete Time: 13:15 07/02 13:12 Order name: EKG - Nurse/Tech; Complete Time: 13:54 07/02 13:12 Order name: IV Saline Lock; Complete Time: 13:40 07/02 13:12 Order name: Labs collected and sent; Complete Time: 13:40 07/02 13:12 Order name: O2 Per Protocol; Complete Time: 13:15 rn 07/02 13:12 Order name: O2 Sat Monitoring; Complete Time: 13:15 rn Administered Medications: 13:32 Drug: Meclizine PO 50 mg PO once Route: PO; mb9 14:17 Follow up: Response: No adverse reaction mb9 14:20 Drug: NS 0.9% IV 500 ml IV at bolus once Route: IV; Rate: bolus; Site: right mb9 antecubital; 14:23 Follow up: Response: No adverse reaction rs5 Disposition Summary: 07/02/23 15:26 Discharge Ordered Notes: Location: Home rn Problem: an ongoing problem rn Symptoms: have improved rn Condition: Stable rn Diagnosis - Dizziness and giddiness rn - Dehydration rn Followup: rn - With: Private Physician - When: As needed - Reason: Recheck today's complaints, Re-evaluation by your physician Discharge Instructions: - Discharge Summary Sheet rn - Dehydration, Adult rn - Dizziness rn Forms: - Medication Reconciliation Form rn - Thank You Letter rn - Antibiotic oil furnace installer - Prescription Opioid Use rn - Patient Portal Instructions rn - Leadership Thank You Letter rn Signatures: Dispatcher [employer] EDCj Shay MD MD rn Sims, Lauren, RN RN ld1 Yakelin Rice RN RN mb9 Didier Seth RN rs5
--- NOTE | 2023-07-02 15:27 | ER ---
Nurse's Notes [facility] Name: Sukh York Age: 63 yrs Sex: Female : 1960 Arrival Date: 07/02/2023 Time: 12:48 Bed 6 Private MD: Lucy Schaeffer Diagnosis: Dizziness and giddiness;Dehydration Presentation: 07/02 13:00 Chief complaint: Patient states: Defibrillator "Squeezing" since last night. C/O ld1 dizziness. Coronavirus screen: At this time, the client does not indicate any symptoms associated with coronavirus-19. Ebola Screen: No symptoms or risks identified at this time. Initial Sepsis Screen: Does the patient meet any 2 criteria? No. Patient's initial sepsis screen is negative. Does the patient have a suspected source of infection? No. Patient's initial sepsis screen is negative. Risk Assessment: Do you want to hurt yourself or someone else? Patient reports no desire to harm self or others. Onset of symptoms was July 02, 2023. 13:00 Method Of Arrival: Ambulatory ld1 13:00 Acuity: RADHA 3 ld1 Triage Assessment: 13:01 General: Appears in no apparent distress. comfortable, Behavior is calm, cooperative, ld1 appropriate for age. Pain: Complains of pain in chest Pain does not radiate. Pain currently is 8 out of 10 on a pain scale. Quality of pain is described as throbbing, Pain began 1 day ago. Is continuous. EENT: No signs and/or symptoms were reported regarding the EENT system. Neuro: Level of Consciousness is awake, alert, obeys commands, Oriented to person, place, time, situation. Cardiovascular: Capillary refill < 3 seconds Patient's skin is warm and dry. Respiratory: Airway is patent Respiratory effort is even, unlabored. GI: Abdomen is round non-distended. : No signs and/or symptoms were reported regarding the genitourinary system. Derm: No signs and/or symptoms reported regarding the dermatologic system. Musculoskeletal: No signs and/or symptoms reported regarding the musculoskeletal system. Historical: - Allergies: 13:01 PENICILLINS; ld1 - PMHx: 13:01 Diabetes - NIDDM; COPD; Hypertension; Aneurysm; CHF; ld1 - PSHx: 13: defibrillator; ld1 - Immunization history:: Adult Immunizations up to date. - Social history:: Smoking status: Patient denies any tobacco usage or history of. Patient/guardian denies using alcohol. - Family history:: not pertinent. - Hospitalizations: : Patient was recently seen at. Screenin:01 [facility] ED Fall Risk Assessment (Adult) History of falling in the last 3 months, rs5 including since admission No falls in past 3 months (0 pts) Confusion or Disorientation No (0 pts) Intoxicated or Sedated No (0 pts) Impaired Gait Yes (1 pt) Mobility Assist Device Used Yes (1 pt) Altered Elimination No (0 pt) Score/Fall Risk Level 0 - 2 = Low Risk Oriented to surroundings, Maintained a safe environment. Abuse screen: Denies threats or abuse. Nutritional screening: No deficits noted. Tuberculosis screening: No symptoms or risk factors identified. Assessment: 13:01 General: Appears in no apparent distress. comfortable, Behavior is calm, cooperative. rs5 Pain: Denies pain. Neuro: Level of Consciousness is awake, alert, obeys commands, Oriented to person, place, time, situation. Cardiovascular: Patient's skin is warm and dry. Rhythm is regular. Respiratory: Respiratory effort is even, unlabored, Respiratory pattern is regular, symmetrical. GI: Abdomen is round non-distended, Abd is soft and non tender X 4 quads. : No signs and/or symptoms were reported regarding the genitourinary system. EENT: No signs and/or symptoms were reported regarding the EENT system. Derm: Skin is intact, Skin is dry, Skin is normal, Skin temperature is warm. Musculoskeletal: Range of motion: intact in all extremities. 14:22 Reassessment: Patient and/or family updated on plan of care and expected duration. Pain rs5 level reassessed. Patient is alert, oriented x 3, equal unlabored respirations, skin warm/dry/pink. 15:07 Reassessment: Patient and/or family updated on plan of care and expected duration. Pain rs5 level reassessed. Patient is alert, oriented x 3, equal unlabored respirations, skin warm/dry/pink. Vital Signs: 13:00 BP 149 / 90; Pulse 84; Resp 18; Temp 98.4(TE); Pulse Ox 100% on R/A; Weight 96 kg; ld1 Height 5 ft. 1 in. ; Pain 8/10; 14:21 BP 118 / 68; Pulse 74; Resp 18; Pulse Ox 100% on R/A; mb9 15:07 BP 121 / 78; Pulse 77; Resp 18; Pulse Ox 99% on R/A; rs5 13:00 Body Mass Index 39.99 (96.00 kg, 154.94 cm) ld1 13:00 Pain Scale: Adult ld1 ED Course: 12:51 Patient arrived in ED. ld1 12:51 Lucy Schaeffer is Private Physician. ld1 13:00 Cj León MD is Attending Physician. rn 13:01 Triage completed. ld1 13:01 Arm band placed on right wrist. ld1 13:01 Patient has correct armband on for positive identification. Placed in gown. Bed in low rs5 position. Call light in reach. Side rails up X2. 13:06 Didier Seth, RN is Primary Nurse. rs5 13:20 Inserted saline lock: 20 gauge in right antecubital area, using aseptic technique. rs5 13:22 CT Head Brain wo Cont In Process Unspecified. EDMS 13:29 XRAY Chest (1 view) In Process Unspecified. EDMS 13:40 Basic Metabolic Panel Sent. mb9 13:40 CBC with Diff Sent. mb9 13:40 Magnesium Sent. mb9 13:40 NT PRO-BNP Sent. mb9 13:40 PT-INR Sent. mb9 13:40 Troponin HS Sent. mb9 14:22 No provider procedures requiring assistance completed. rs5 15:50 IV discontinued, intact, bleeding controlled, No redness/swelling at site. Pressure rs5 dressing applied. Administered Medications: 13:32 Drug: Meclizine PO 50 mg PO once Route: PO; mb9 14:17 Follow up: Response: No adverse reaction mb9 14:20 Drug: NS 0.9% IV 500 ml IV at bolus once Route: IV; Rate: bolus; Site: right mb9 antecubital; 14:23 Follow up: Response: No adverse reaction rs5 Medication: 14:22 VIS not applicable for this client. rs5 Outcome: 15:26 Discharge ordered by MD. rn 15:50 Discharged to home ambulatory, rs5 15:50 Condition: stable 15:50 Discharge instructions given to patient, Instructed on discharge instructions, follow up and referral plans. Demonstrated understanding of instructions, follow-up care, 15:56 Patient left the ED. rs5 Signatures: Dispatcher [employer] EDCj Shay MD MD rn Layne Ponce RN RN ld1 Yakelin Rice RN RN mb9 Didier Seth RN RN rs5
[2023-07-02 16:36] VITALS: BP 121/78; TEMP 98.4; O2SAT 99
== END ==
LOC: ER 12:48
DX: R42 Dizziness and giddiness (principal); E86.0 Dehydration; Z98.890 Other specified postprocedural states; I50.9 Heart failure, unspecified; I10 Essential (primary) hypertension; Z95.810 Presence of automatic (implantable) cardiac defibrillator; J44.9 Chronic obstructive pulmonary disease, unspecified; Z88.0 Allergy status to penicillin
CPT/HCPCS: 85025; 80048; 36415; 83735; 85610; 84484; 83880; 70450; 71045; J8597; J7040

== ENCOUNTER 2023-08-19 04:48 | Observation (INO) | payer OTHER ==
[2023-08-19 05:47] LABS: Absolute Basophils 0.1 K/uL (0-0.5); Absolute Eosinophils 0.1 K/uL (0-0.5); Absolute Lymphocytes (CBC) 1.5 K/uL (0.7-4.9); Absolute Monocytes 0.4 K/uL (0.1-1.3); Absolute Neutrophil 3.7 K/uL (1.8-8.0); Basophils % 0.9 % (0-1.3); Eosinophils % 1.5 % (0-4.4); Hematocrit 37.6 % (36.0-45.0); Hemoglobin 12.4 g/dL (12.0-15.0); Lymphocytes % 25.5 % (15.3-44.8); MCH 29.1 pg (27.0-35.0); MCV 88.2 fL (80-100); MPV 10.1 fL (7.6-11.3); Monocytes % 6.8 % (3.3-12.3); Neutrophils % 65.3 % (41.7-73.7); Nucleated Red Blood Cells % 0.1 % (0-0); Platelets 177 thou/uL (152-406); RBC Red Blood Cell Count 4.26 M/uL (3.86-4.86); Red Cell Distribution Width 15.3 % (12.1-15.2)
[2023-08-19 05:48] LABS: ALT/SGPT 16 U/L (13-56); Albumin 3.4 g/dL (3.4-5.0); Albumin/Globulin Ratio 0.9 (1.1-1.8); Alkaline Phosphatase 65 U/L (45-117); Anion Gap 8.1 mEq/L (5.0-15.0); BUN Blood Urea Nitrogen 23 mg/dL (7-18); Bicarbonate 29 mEq/L (21-32); Bilirubin Direct 0.1 mg/dL (0-0.2); Bilirubin Indirect, Calculated 0.3 mg/dL (0.2-0.8); Bilirubin Total 0.4 mg/dL (0.2-1.0); Creatine Phosphokinase 35 U/L (26-192); Globulin 3.7 g/dL (2.3-3.5); Glomerular Filtration Rate 72 ml/min (=/>90); Glucose Level 120 mg/dL (74-106); Lipase 25 U/L (13-75); Magnesium 2.1 mg/dL (1.6-2.4); NT PRO-BNP 2202 pg/mL (<125); Potassium 4.1 mEq/L (3.5-5.1); Protein, Total 7.1 g/dL (6.4-8.2); Sodium Level 140 mEq/L (136-145); Troponin High Sensitivity 18.9 pg/mL (<58.9)
[2023-08-19 05:49] LABS: AST/SGOT < 4 U/L (15-37)
[2023-08-19 05:52] LABS: PT Prothrombin Time 13.2 SECONDS (9.5-12.5); PTT, Activated Partial Thromb 36.6 SECONDS (24.3-36.9); Protime INR 1.21
[2023-08-19] MEDS: BUMETANIDE 1 MG/4 ML VIAL ONE (06:22)
--- NOTE | 2023-08-19 06:39 | ER ---
Nurse's Notes [facility] [place] Name: Sukh York Age: 63 yrs Sex: Female : 1960 Arrival Date: 08/19/2023 Time: 04:48 Bed 3 Private MD: Diagnosis: Acute on chronic diastolic (congestive) heart failure;Congestive heart failure exacerbation Presentation: 08/18 05:04 Chief complaint: Patient states: SOB X4 days and worsening. Coronavirus screen: Client lg3 denies travel out of the [place] in the last 14 days. At this time, the client does not indicate any symptoms associated with coronavirus-19. Ebola Screen: No symptoms or risks identified at this time. Initial Sepsis Screen: Does the patient meet any 2 criteria? No. Patient's initial sepsis screen is negative. Does the patient have a suspected source of infection? No. Patient's initial sepsis screen is negative. Risk Assessment: Do you want to hurt yourself or someone else? Patient reports no desire to harm self or others. Onset of symptoms was August 14, 2023. 05:04 Method Of Arrival: Ambulatory 3 05:04 Acuity: RADHA 3 lg3 Triage Assessment: 05:05 General: Appears in no apparent distress. comfortable, Behavior is calm, cooperative. lg3 Pain: Denies pain. EENT: No deficits noted. No signs and/or symptoms were reported regarding the EENT system. Neuro: No deficits noted. Sheffield Agitation-Sedation Scale (RASS): 0 - Alert and Calm Level of Consciousness is awake, alert, obeys commands, Oriented to person, place, time, situation. Cardiovascular: No deficits noted. Denies chest pain, Capillary refill < 3 seconds Clubbing of nail beds is absent JVD is absent Patient's skin is warm and dry. Respiratory: Reports shortness of breath Airway is patent Respiratory effort is even, unlabored, Respiratory pattern is regular, symmetrical, Onset: The symptoms/episode began/occurred 4 days ago, the patient has mild shortness of breath. Respiratory: Breath sounds are clear bilaterally. GI: No deficits noted. No signs and/or symptoms were reported involving the gastrointestinal system. Abdomen is round non-distended, obese. : No deficits noted. No signs and/or symptoms were reported regarding the genitourinary system. Derm: No deficits noted. No signs and/or symptoms reported regarding the dermatologic system. Skin is intact, is healthy with good turgor, Skin is dry, Skin is normal, Skin temperature is warm. Musculoskeletal: No deficits noted. No signs and/or symptoms reported regarding the musculoskeletal system. Circulation, motion, and sensation intact. Range of motion: intact in all extremities. Historical: - Allergies: 05:05 PENICILLINS; lg3 - Home Meds: 05:05 aspirin 81 mg oral capsule daily [Active]; Klor-Con 10 10 mEq Oral tablet, extended lg3 release 4 tabs 2 times per day [Active]; bumetanide 2 mg Oral tablet 1 tab daily [Active]; meclizine 25 mg Oral tablet 1 tab 3 times per day [Active]; metformin 500 mg Oral tablet 1 tab 2 times per day [Active]; Eliquis 5 mg oral tablet 1 tab 2 times per day [Active]; Jardiance 10 mg oral tablet 1 tab every morning [Active]; spironolactone 25 mg Oral tablet 1 tab daily [Active]; amiodarone 200 mg Oral tablet 1 tab daily [Active]; - PMHx: 05:05 Aneurysm; CHF; COPD; Diabetes - NIDDM; Hypertension; Arthritis; lg3 - PSHx: 05:05 defibrillator; back (defibrillator); lg3 - Immunization history:: Adult Immunizations up to date, Client reports receiving the 2nd dose of the Covid vaccine, Flu vaccine is not up to date. - Infectious Disease History:: Denies. - Social history:: Smoking status: Patient denies any tobacco usage or history of. Patient/guardian denies using alcohol, street drugs. - Family history:: not pertinent. Screenin:55 [facility] ED Fall Risk Assessment (Adult) History of falling in the last 3 months, vc1 including since admission No falls in past 3 months (0 pts) Confusion or Disorientation No (0 pts) Intoxicated or Sedated No (0 pts) Impaired Gait No (0 pts) Mobility Assist Device Used No (0 pt) Altered Elimination No (0 pt) Score/Fall Risk Level 0 - 2 = Low Risk Oriented to surroundings, Maintained a safe environment, Educated pt \T\ family on fall prevention, incl call for assistance when getting out of bed. Abuse screen: Denies threats or abuse. Nutritional screening: No deficits noted. Tuberculosis screening: No symptoms or risk factors identified. Assessment: 05:54 General: Appears in no apparent distress. uncomfortable, slender, Behavior is calm, vc1 cooperative, appropriate for age. Pain: Denies pain. Neuro: Level of Consciousness is awake, alert, obeys commands, Oriented to person, place, time, situation, Appropriate for age. Cardiovascular: Reports shortness of breath, Denies chest pain, Heart tones S1 S2 Capillary refill < 3 seconds Patient's skin is warm and dry. Rhythm is sinus rhythm. Respiratory: Airway is patent Respiratory effort is even, unlabored, Respiratory pattern is symmetrical, tachypnea Breath sounds are clear bilaterally. GI: No deficits noted. No signs and/or symptoms were reported involving the gastrointestinal system. : No deficits noted. No signs and/or symptoms were reported regarding the genitourinary system. EENT: No deficits noted. No signs and/or symptoms were reported regarding the EENT system. Derm: Skin is intact, is healthy with good turgor, Skin temperature is warm. 11:10 Reassessment: Report faxed to 4th floor. ph Vital Signs: 05:04 BP 131 / 83; Pulse 67; Resp 21 S; Temp 98.4(O); Pulse Ox 100% on R/A; Weight 102.97 kg lg3 (M); Height 5 ft. 1 in. (R); 05:45 BP 138 / 86; Pulse 64; Resp 18; Pulse Ox 98% ; vc1 06:45 BP 125 / 76; Pulse 97; Resp 22; Pulse Ox 100% on R/A; jj7 07:57 BP 97 / 59; Pulse 68; Resp 15; Pulse Ox 98% ; ko1 05:04 Body Mass Index 42.89 (102.97 kg, 154.94 cm) lg3 ED Course: 04:49 Patient arrived in ED. jj6 04:50 Dionisio Robles MD is Attending Physician. sp4 05:05 Triage completed. lg3 05:05 Arm band placed on left wrist. lg3 05:05 Patient has correct armband on for positive identification. Bed in low position. Call vc1 light in reach. Placed in gown. national opelint analyst on. Pulse ox on. NIBP on. 05:09 XRAY CXR (1 view) In Process Unspecified. EDMS 05:21 Inserted saline lock: 20 gauge in right antecubital area, using aseptic technique. jj7 Blood collected. 05:33 Second set of blood cultures drawn by ky. vc1 05:44 BMP Sent. jj7 05:44 Blood Culture Adult (2) Sent. jj7 05:44 CBC with Diff Sent. jj7 05:44 CPK Sent. jj7 05:44 Hepatic Function Sent. jj7 05:44 Lipase Sent. jj7 05:44 Magnesium Sent. jj7 05:44 NT PRO-BNP Sent. jj7 05:44 PT-INR Sent. jj7 05:44 Ptt, Activated Sent. jj7 05:44 Troponin HS Sent. jj7 05:47 Lactate w/ 2H reflex if indic. Sent. jj7 05:54 Sandhya Gagnon, RN is Primary Nurse. vc1 06:10 Lights dimmed. Warm blanket given. jj7 06:37 Aditya Brito is Hospitalizing Provider. sp4 07:57 Provided Education on: NA. ko1 07:57 No provider procedures requiring assistance completed. Patient admitted, IV remains in ko1 place. Administered Medications: 06:30 Drug: Bumetanide IVP 2 mg IVP once Route: IVP; Site: right antecubital; jj7 07:23 Follow up: Response: No adverse reaction ko1 Medication: 05:56 VIS not applicable for this client. vc1 Output: 07:43 Urine: 1000ml (Voided); Total: 1000ml. ph Outcome: 06:38 Decision to Hospitalize by Provider. sp4 07:57 Admitted to ER Hold. Please see [facility] for further documentation. ko1 07:57 Condition: stable 07:57 Instructed on the need for admit, 11:25 Patient left the ED. ph Signatures: Dispatcher [employer] EDKS Aliyah Teran RN RN ph Able, Lacie RN DAY [email or web address] Rika Tovar jj6 Sandhya Gagnon RN RN vc1 Georgina Harman RN RN ko1 Juan Otero RN RN jj7 Dionisio Robles MD MD sp4 Corrections: (The following items were deleted from the chart) 05:56 05:54 Respiratory: Airway is patent Respiratory effort is even, unlabored, Respiratory vc1 pattern is regular, symmetrical, Breath sounds are clear bilaterally. vc1
--- NOTE | 2023-08-19 06:39 | EDPHYS ---
Physician Documentation [facility] [place] Name: Sukh York Age: 63 yrs Sex: Female : 1960 Arrival Date: 08/19/2023 Time: 04:48 Bed 3 Private MD: ED Physician Dionisio Robles HPI: 08/18 04:50 This 63 yrs old Female presents to ER via Unassigned with complaints of sp4 Shortness Of Breath. 04:50 PMH - Allergies: PENICILLINS; PMHx Aneurysm; CHF; COPD; Diabetes - NIDDM; Hypertension; sp4 PSHx: defibrillator. 06:38 63-year-old female with history of congestive heart failure, history of COPD and sp4 diabetes presents with acute worsening shortness of breath, dyspnea on exertion and orthopnea. . Historical: - Allergies: 05:05 PENICILLINS; lg3 - Home Meds: 05:05 aspirin 81 mg oral capsule daily [Active]; Klor-Con 10 10 mEq Oral tablet, extended lg3 release 4 tabs 2 times per day [Active]; bumetanide 2 mg Oral tablet 1 tab daily [Active]; meclizine 25 mg Oral tablet 1 tab 3 times per day [Active]; metformin 500 mg Oral tablet 1 tab 2 times per day [Active]; Eliquis 5 mg oral tablet 1 tab 2 times per day [Active]; Jardiance 10 mg oral tablet 1 tab every morning [Active]; spironolactone 25 mg Oral tablet 1 tab daily [Active]; amiodarone 200 mg Oral tablet 1 tab daily [Active]; - PMHx: 05:05 Aneurysm; CHF; COPD; Diabetes - NIDDM; Hypertension; Arthritis; lg3 - PSHx: 05:05 defibrillator; back (defibrillator); lg3 - Immunization history:: Adult Immunizations up to date, Client reports receiving the 2nd dose of the Covid vaccine, Flu vaccine is not up to date. - Infectious Disease History:: Denies. - Social history:: Smoking status: Patient denies any tobacco usage or history of. Patient/guardian denies using alcohol, street drugs. - Family history:: not pertinent. ROS: 06:38 Constitutional: Negative for fever, chills, and weight loss, positive for dyspnea on sp4 exertion, and orthopnea 06:38 All other systems are negative, Exam: 06:38 Constitutional: This is a well developed, well nourished patient who is awake, alert, sp4 and in no acute distress. Head/Face: Normocephalic, atraumatic. Eyes: Pupils equal round and reactive to light, extra-ocular motions intact. Lids and lashes normal. Conjunctiva and sclera are not injected. Cornea within normal limits. Periorbital areas with no swelling, redness, or edema. ENT: Nares patent. No nasal discharge, no septal abnormalities noted. Tympanic membranes are normal and external auditory canals are clear. Oropharynx with no redness, swelling, or masses, exudates, or evidence of obstruction, uvula midline. Mucous membranes moist. Neck: Trachea midline, no thyromegaly or masses palpated, and no cervical lymphadenopathy. Supple, full range of motion without nuchal rigidity, or vertebral point tenderness. Chest/axilla: Normal chest wall appearance and motion. Nontender with no deformity. No lesions are appreciated. Cardiovascular: Regular rate and rhythm with a normal S1 and S2. No gallops, murmurs, or rubs. Normal PMI, Positive JVD , No pulse deficits. Respiratory: Lungs have equal breath sounds bilaterally, clear to auscultation and percussion. No rales, rhonchi or wheezes noted. No increased work of breathing, no retractions or nasal flaring. Abdomen/GI: Soft, with normal bowel sounds. No distension or tympany. No guarding or rebound. No evidence of tenderness throughout. Back: No spinal tenderness. No costovertebral tenderness. Skin: Warm, dry with normal turgor. Normal color with no rashes, no lesions, and no evidence of cellulitis. MS/ Extremity: Pulses equal, no cyanosis. Neurovascular intact. Full, normal range of motion. Neuro: Awake and alert, GCS 15, oriented to person, place, time, and situation. Cranial nerves II-XII grossly intact. Motor strength 5/5 in all extremities. Sensory grossly intact. Psych: Awake, alert, with orientation to person, place and time. Behavior, mood, and affect are within normal limits 06:38 ECG was reviewed by the Attending Physician. EKG 0 545, normal sinus rhythm at a rate sp4 of 62, left axis deviation left bundle branch block. No signs of acute ischemia Vital Signs: 05:04 BP 131 / 83; Pulse 67; Resp 21 S; Temp 98.4(O); Pulse Ox 100% on R/A; Weight 102.97 kg lg3 (M); Height 5 ft. 1 in. (R); 05:45 BP 138 / 86; Pulse 64; Resp 18; Pulse Ox 98% ; vc1 06:45 BP 125 / 76; Pulse 97; Resp 22; Pulse Ox 100% on R/A; jj7 07:57 BP 97 / 59; Pulse 68; Resp 15; Pulse Ox 98% ; ko1 05:04 Body Mass Index 42.89 (102.97 kg, 154.94 cm) lg3 MDM: 05:06 Patient medically screened. sp4 06:40 Differential diagnosis: Anemia Anxiety Reaction asthma, CHF exacerbation, Chronic sp4 Obstructive Pulmonary Disease pneumonia, Psychogenic. Data reviewed: vital signs, old medical records, lab test result(s), EKG, radiologic studies, plain films. 06:41 Consideration of Admission/Observation Patient was admitted/placed on observation. sp4 Escalation of care including admission/observation considered. Management of patient was discussed with the following: Hospitalist: Admitting team . 06:49 ED course: CLINICAL HISTORY: The patient is 63 years old and is Female; CONGESTION sp4 TECHNIQUE: Single view of the chest. COMPARISON: July 22, 2023. FINDINGS: Lungs: No pulmonary vascular congestion or consolidation. Pleural space: Unremarkable. No pneumothorax. Heart: The cardiac silhouette is enlarged versus artifact of AP technique. Mediastinum: Unremarkable. Bones/joints: No acute fracture visualized. Upper abdomen: No free air in the visualized upper abdomen. Other findings: Left-sided ICD/pacer. IMPRESSION: No acute cardiopulmonary process identified. . 08/18 04:55 Order name: BMP; Complete Time: 06:33 sp4 08/18 04:55 Order name: Blood Culture Adult (2) sp4 08/18 04:55 Order name: CBC with Diff; Complete Time: 06:33 sp4 08/18 04:55 Order name: CPK; Complete Time: 06:33 sp4 08/18 04:55 Order name: Hepatic Function; Complete Time: 06:33 sp4 08/18 04:55 Order name: Lipase; Complete Time: 06:33 sp4 08/18 04:55 Order name: Magnesium; Complete Time: 06:33 sp4 08/18 04:55 Order name: NT PRO-BNP; Complete Time: 06:33 sp4 08/18 04:55 Order name: PT-INR; Complete Time: 06:33 sp4 08/18 04:55 Order name: Ptt, Activated; Complete Time: 06:33 sp4 08/18 04:55 Order name: Troponin HS; Complete Time: 06:33 sp4 08/18 05:20 Order name: Lactate w/ 2H reflex if indic.; Complete Time: 06:33 jj7 08/18 07:33 Order name: Basic Metabolic Panel EDMS 08/18 07:33 Order name: Basic Metabolic Panel EDMS 08/18 07:33 Order name: CBC with Automated Diff EDMS 08/18 07:33 Order name: CBC with Automated Diff EDMS 08/18 07:33 Order name: Magnesium EDMS 08/18 07:33 Order name: Magnesium EDMS 08/18 07:33 Order name: Phosphorus EDMS 08/18 07:33 Order name: Phosphorus EDMS 08/18 07:33 Order name: Troponin High Sensitivity EDMS 08/18 07:33 Order name: Troponin High Sensitivity EDMS 08/18 07:33 Order name: Troponin High Sensitivity EDMS 08/18 08:17 Order name: Glucose, Ancillary Testing EDMS 08/18 04:55 Order name: XRAY CXR (1 view) sp4 08/18 04:55 Order name: EKG; Complete Time: 04:55 sp4 08/18 04:55 Order name: Cardiac monitoring; Complete Time: 05:44 sp4 08/18 04:55 Order name: EKG - Nurse/Tech; Complete Time: 05:49 sp4 08/18 04:55 Order name: IV Saline Lock; Complete Time: 05:44 sp4 08/18 04:55 Order name: Labs collected and sent; Complete Time: 05:44 sp4 08/18 04:55 Order name: O2 Per Protocol; Complete Time: 05:44 sp4 08/18 04:55 Order name: O2 Sat Monitoring; Complete Time: 05:44 sp4 EC:38 Rate is 62 beats/min. Rhythm is regular, Sinus Rhythm. Left axis deviation noted. UT sp4 interval is normal. QRS interval is prolonged. QT interval is normal. T waves are Normal. No ST changes noted. Clinical impression: No evidence of ischemia. Interpreted by me. Reviewed by me. Administered Medications: 06:30 Drug: Bumetanide IVP 2 mg IVP once Route: IVP; Site: right antecubital; jj7 07:23 Follow up: Response: No adverse reaction ko1 Disposition Summary: 08/19/23 06:38 Hospitalization Ordered Notes: Hospitalization Status: Observation sp4 Provider: Aditya Brito sp4 Condition: Stable sp4 Problem: new sp4 Symptoms: have improved sp4 Bed/Room Type: Standard sp4 Location: Telemetry/MedSurg (observation)(08/19/23 10:48) bd Room Assignment: 406(08/19/23 10:48) bd Diagnosis - Acute on chronic diastolic (congestive) heart failure sp4 - Congestive heart failure exacerbation sp4 Forms: - Medication Reconciliation Form sp4 - SBAR form sp4 - Leadership Thank You Letter sp4 Signatures: Dispatcher [employer] EDMS Verona Hinson Lacie, RN RN lg3 Juan Otero RN RN jj7 Dionisio Robles MD MD sp4 Georgina Harman RN ko1 Corrections: (The following items were deleted from the chart) 04:55 04:55 BASIC METABOLIC PANEL+C.LAB.BRZ ordered. EDMS EDMS 04:55 04:55 BLOOD CULTURE*+BA.LAB.BRZ ordered. EDMS EDMS 04:55 04:55 CBC+H.LAB.BRZ ordered. EDMS EDMS 04:55 04:55 CREATINE PHOSPHOKINASE+C.LAB.BRZ ordered. EDMS EDMS 04:55 04:55 HEPATIC FUNCTION+C.LAB.BRZ ordered. EDMS EDMS 04:55 04:55 LIPASE+C.LAB.BRZ ordered. EDMS EDMS 04:55 04:55 MAGNESIUM+C.LAB.BRZ ordered. EDMS EDMS 04:55 04:55 PROBNP+C.LAB.BRZ ordered. EDMS EDMS 04:55 04:55 PROTIME (+INR)+COAG.LAB.BRZ ordered. EDMS EDMS 04:55 04:55 PTT, ACTIVATED+COAG.LAB.BRZ ordered. EDMS EDMS 04:55 04:55 Troponin High Sensitivity+C.LAB.BRZ ordered. EDMS EDMS 05:20 05:20 LACTATE+C.LAB.BRZ ordered. EDMS EDMS 08: 06:38 Telemetry/MedSurg (observation) sp4 bd 08: 06:38 sp4 bd 10:48 08:29 BR ER HOLD bd bd :48 08:29 ERHOLD- bd bd
--- NOTE | 2023-08-19 07:07 | P.HP ---
Certification for Inpatient Patient admitted to: Observation With expected LOS: <2 Midnights Patient will require the following post-hospital care: None Practitioner: I am a practitioner with admitting privileges, knowledge of patient current condition, hospital course, and medical plan of care. Services: Services provided to patient in accordance with Admission requirements found in Title 42 Section 412.3 of the Code of Federal Regulations Patient History Date of Service: 08/19/23 Reason for admission: CHF exacerbation History of Present Illness: Sukh York is 5 of aneurysm, CHF, COPD, DEE DEE, hypertension, diabetes mellitus 2NIDDM, arthritis, AICD 2015r who presents to the ED with complaints of orthopnea, dyspnea on exertion, and worsening shortness of breath. She reports continuing her home Bumex regimen at home, and uses an extra Bumex when needed. She reports feeling better after the first dose of bumex in the ED. While in the ED she was given Bumex 2 mg and blood cultures were taken. Initial vitals BP 131 / 83; Pulse 67; Resp 21 S; Temp 98.4(O); Pulse Ox 100% on R/A Laboratory evaluation BNP 2202, H&H stable, sodium 140, potassium 4.1, serum glucose 120, and lipase 25. Chest x-ray reports "No acute cardiopulmonary process identified." Sukh will be admitted to hospitalist service for further treatment of CHF exacerbation. Allergies Penicillins Allergy (Mild, Verified 12/28/21 08:40) Convulsions Home Medications: Metformin HCl 500 mg PO BID 12/11/17 Potassium Oral Tab [Klor-Con 10 mEq Tab*] 40 meq PO BID 12/11/17 Bumetanide [Bumex*] 2 mg PO DAILY 12/28/21 Empagliflozin [Jardiance] 10 mg PO DAILY 12/28/21 Spironolactone [Aldactone*] 25 mg PO DAILY 12/28/21 Amiodarone HCl [Cordarone*] 200 mg PO DAILY 07/22/23 Apixaban [Eliquis *] 5 mg PO BID 07/22/23 Albuterol Sulfate [Proair Digihaler] 1 puff IH Q4HR 08/19/23 Aspirin [Macario Chewable Aspirin] 81 mg PO DAILY 08/19/23 Meclizine HCl 25 mg PO TID 08/19/23 methocarbamoL [Methocarbamol] 750 mg PO Q6HR 08/19/23 - Past Medical/Surgical History Diabetic: No -: HTN -: DM -: CHF -: AICD placement -: DEE DEE -: Obesity -: COPD -: AICD placement 2014 -: cholecystectomy -: vein surgery - Social History Alcohol use: No CD- Drugs: No Caffeine use: Yes Review of Systems Respiratory: Shortness of Breath, SOB with Excertion Cardiovascular: Orthopnea Physical Examination - Physical Exam General: Alert, In no apparent distress, Oriented x3 HEENT: Atraumatic, Normocephalic, PERRLA Neck: 2+ carotid pulse no bruit, JVD not distended Respiratory: Normal air movement, Expiratory wheezes Cardiovascular: Normal pulses, Regular rate/rhythm, Normal S1 S2 Capillary refill: <2 Seconds Gastrointestinal: Soft and benign, Distended (obese) Musculoskeletal: No contractures Integumentary: No rashes, Other (right inguinal surgical incision) Neurological: Normal speech, Normal strength at 5/5 x4 extr - Studies Laboratory Data (last 24 hrs) 08/19/23 08/19/23 08/19/23 05:22 05:22 05:22 WBC 5.70 Hgb 12.4 Hct 37.6 Plt Count 177 PT 13.2 H INR 1.21 APTT 36.6 Sodium 140 Potassium 4.1 BUN 23 H Creatinine 0.91 Glucose 120 H Magnesium 2.1 Total Bilirubin 0.4 AST < 4 L ALT 16 Alkaline Phosphatase 65 Lipase 25 Assessment and Plan - Plan Assessment and plan Acute respiratory distress 2/2 acute on chronic heart failure exacerbation BNP 2202 Bumex given in the ED Plan to diurese Strict intake and output Daily weights Follow blood cultures Lasix BID History of COPD History of DEE DEE Restart home nebulizer treatments Diabetes mellitus 2NIDDM Accu-Chek with sliding scale insulin Serum glucose 120 History hypertension Restart home medications when available and if appropriate Initial blood pressure 131/83 Hx of Chronic pain with arthritis Restart home medication History of aneurysm Continue outpatient treatment and monitoring DVT PPx Lovenox LOS 2 days Full code Discharge Plan: Home Plan to discharge in: 48 Hours - Advance Directives Does patient have a Living Will: No Does patient have a Durable POA for Healthcare: No Time Spent Managing Pts Care (In Minutes): 50
[2023-08-19] MEDS: INSULIN REGULAR (HUMAN) 100 UNIT/ML SQ SCH (07:30)
[2023-08-19 08:14] VITALS: BMI 42.7
[2023-08-19] MEDS: FUROSEMIDE 40 MG/4 ML VIAL IV SCH (09:00)
[2023-08-19] MEDS: ENOXAPARIN 40 MG/0.4 ML SQ SCH (09:00)
[2023-08-19] MEDS ORDERED: ENOXAPARIN 40 MG/0.4 ML SQ ONE (10:38)
[2023-08-19] MEDS ORDERED: FUROSEMIDE 40 MG/4 ML VIAL ONE (10:38)
--- NOTE | 2023-08-19 11:21 | RAD REPORT ---
EXAM DESCRIPTION: RAD - Chest Single View - 08/19/2023 5:07 am CLINICAL HISTORY: The patient is 63 years old and is Female; CONGESTION TECHNIQUE: Single view of the chest. COMPARISON: July 22, 2023. FINDINGS: Lungs: No pulmonary vascular congestion or consolidation. Pleural space: Unremarkable. No pneumothorax. Heart: The cardiac silhouette is enlarged versus artifact of AP technique. Mediastinum: Unremarkable. Bones/joints: No acute fracture visualized. Upper abdomen: No free air in the visualized upper abdomen. Other findings: Left-sided ICD/pacer. IMPRESSION: No acute cardiopulmonary process identified. Electronically signed by: Sarah Awan MD 08/19/2023 06:43 AM CDT Due to temporary technical issues with the PACS/Fluency reporting system, reports are being signed by the in house radiologists without review as a courtesy to insure prompt reporting. The interpreting radiologist is fully responsible for the content of the report
[2023-08-19 18:06] VITALS: O2SAT 98
[2023-08-19] MEDS ORDERED: LACTULOSE 20 GM/30 ML UCUP PO PRN (21:11)
[2023-08-19] MEDS: DOCUSATE NA 100 MG CAP PO SCH (21:35)
[2023-08-20 06:59] LABS: Anion Gap 8.2 mEq/L (5.0-15.0); Magnesium 2.4 mg/dL (1.6-2.4); Phosphorus 4.1 mg/dL (2.5-4.9); Potassium 3.2 mEq/L (3.5-5.1)
[2023-08-20 07:12] LABS: Absolute Eosinophils 0.1 K/uL (0-0.5); Absolute Lymphocytes (CBC) 1.4 K/uL (0.7-4.9); Absolute Monocytes 0.3 K/uL (0.1-1.3); Basophils % 0.6 % (0-1.3); Eosinophils % 1.5 % (0-4.4); Hematocrit 38.1 % (36.0-45.0); Hemoglobin 12.3 g/dL (12.0-15.0); Lymphocytes % 28.9 % (15.3-44.8); MCH 28.6 pg (27.0-35.0); MCHC 32.3 g/dL (32.0-36.0); MCV 88.4 fL (80-100); MPV 10.4 fL (7.6-11.3); Monocytes % 6.8 % (3.3-12.3); Neutrophils % 62.2 % (41.7-73.7); Platelets 156 thou/uL (152-406); RBC Red Blood Cell Count 4.31 M/uL (3.86-4.86)
--- NOTE | 2023-08-20 07:39 | P.DS ---
Admission Date: 08/19/23 Discharge Date: 08/20/23 Disposition: ROUTINE DISCHARGE Discharge Condition: GOOD Reason for Admission: CHF exacerbation Brief History of Present Illness: Diagnosis Acute respiratory distress 2/2 acute on chronic heart failure exacerbation History of COPD History of DEE DEE Diabetes mellitus 2NIDDM History hypertension Hx of Chronic pain with arthritis History of aneurysm HPI 08/19/23 Sukh York is 5 of aneurysm, CHF, COPD, DEE DEE, hypertension, diabetes mellitus 2NIDDM, arthritis, AICD 2015r who presents to the ED with complaints of orthopnea, dyspnea on exertion, and worsening shortness of breath. She reports continuing her home Bumex regimen at home, and uses an extra Bumex when needed. She reports feeling better after the first dose of bumex in the ED. While in the ED she was given Bumex 2 mg and blood cultures were taken. Initial vitals BP 131 / 83; Pulse 67; Resp 21 S; Temp 98.4(O); Pulse Ox 100% on R/A Laboratory evaluation BNP 2202, H&H stable, sodium 140, potassium 4.1, serum glucose 120, and lipase 25. Chest x-ray reports "No acute cardiopulmonary process identified." Sukh will be admitted to hospitalist service for further treatment of CHF e xacerbation. Hospital Course: Sukh York is a pleasant 63 year old female with a past medical history significant for aneurysm, CHF, COPD, DEE DEE, hypertension, diabetes mellitus 2NIDDM, arthritis, AICD (2014) who was admitted to the [facility] on 08/19/23 for orthopnea, dyspnea on exertion, and worsening shortness of breath. Sukh presented to ED with chief complaint of worsening shortness of breath. She is compliant with her Bumex regiment but felt that the holiday had been hard on her and increased her fluid level. She responded well to IV Bumex in the ED and was monitored overnight for continued Lasix use. She has tolerated diuresis with appropriate urine output. She is stable for discharge and will follow-up with cardiology and PCP for continued medical management. On 08/20/23, Sukh was seen on morning rounds and deemed medically stable for discharge. Sukh was discharged with instructions to schedule follow-up appointments with PCP and cardiology. The patient was given the opportunity to ask questions and reported no further questions. Furthermore, all questions were answered to the best of my ability. A copy of this discharge summary will be sent to the above providers to facilitate continuity of care. Today, I personally spent 50 minutes with Sukh, of which greater than 50% of the time was spent in patient education, counseling, and coordination of care as described above. Physical Exam General: AAOx3, NAD, calm HEENT: Atraumatic, Normocephalic, PERRLA Neck: 2+ carotid pulse no bruit, JVD not distended Respiratory: Symmetrical chest wall movement, bilateral clear lung sounds on auscultation Cardiovascular: RRR, S1-S2 present, no murmur noted Capillary refill: <2 Seconds Gastrointestinal: Soft and benign on palpation, nontender distended (obese) Musculoskeletal: No contractures Integumentary: No rashes, Other (right inguinal surgical incision) Neurological: Normal speech, Normal strength at 5/5 x4 extr Vital Signs/Physical Exam: Temp Pulse Resp BP Pulse Ox 97.7 F 62 18 119/62 96 08/20/23 04:00 08/20/23 04:00 08/20/23 04:00 08/20/23 04:00 08/20/23 04:00 Laboratory Data at Discharge: WBC 4.90 thou/uL (4.3-10.9) 08/20/23 05:52 Hgb 12.3 g/dL (12.0-15.0) 08/20/23 05:52 Hct 38.1 % (36.0-45.0) 08/20/23 05:52 Plt Count 156 thou/uL (152-406) 08/20/23 05:52 PT 13.2 SECONDS (9.5-12.5) H 08/19/23 05:22 INR 1.21 08/19/23 05:22 APTT 36.6 SECONDS (24.3-36.9) 08/19/23 05:22 Sodium 139 mEq/L (136-145) 08/20/23 05:52 Potassium 3.2 mEq/L (3.5-5.1) L D 08/20/23 05:52 BUN 24 mg/dL (7-18) H 08/20/23 05:52 Creatinine 0.76 mg/dL (0.55-1.02) 08/20/23 05:52 Glucose 121 mg/dL (74-106) H 08/20/23 05:52 Phosphorus 4.1 mg/dL (2.5-4.9) 08/20/23 05:52 Magnesium 2.4 mg/dL (1.6-2.4) 08/20/23 05:52 Total Bilirubin 0.4 mg/dL (0.2-1.0) 08/19/23 05:22 AST < 4 U/L (15-37) L 08/19/23 05:22 ALT 16 U/L (13-56) 08/19/23 05:22 Alkaline Phosphatase 65 U/L (45-117) 08/19/23 05:22 Lipase 25 U/L (13-75) 08/19/23 05:22 Home Medications: Metformin HCl 500 mg PO BID 12/11/17 Potassium Oral Tab [Klor-Con 10 mEq Tab*] 40 meq PO BID 12/11/17 Bumetanide [Bumex*] 2 mg PO DAILY 12/28/21 Empagliflozin [Jardiance] 10 mg PO DAILY 12/28/21 Spironolactone [Aldactone*] 25 mg PO DAILY 12/28/21 Amiodarone HCl [Cordarone*] 200 mg PO DAILY 07/22/23 Apixaban [Eliquis *] 5 mg PO BID 07/22/23 Albuterol Sulfate [Proair Digihaler] 1 puff IH Q4HR 08/19/23 Aspirin [Macario Chewable Aspirin] 81 mg PO DAILY 08/19/23 Meclizine HCl 25 mg PO TID 08/19/23 methocarbamoL [Methocarbamol] 750 mg PO Q6HR 08/19/23 Physician Discharge Instructions: Sukh York presented to the ED with chief complaint of worsening shortness of breath while taking her home regimen of Bumex. He does seem to be fluid volume overloaded and requiring diuresis. She has tolerated Lasix and Bumex with appropriate urine output. Please follow-up with cardiology and your PCP for continued medical management. 1. Please call and schedule a follow-up appointment with your PCP in 3-5 days - Please follow-up with your PCP for medication refills/adjustments 2. Please call and schedule a follow-up appointment with cardiology in 2 weeks 3. Continue heart healthy diet 4. Continue Bumex regiment as prescribed by outside provider 5. No activity restrictions 6. Return to ED if symptoms worsen Diet: ADA Activity: Ad sergei Followup: Lucy Schaeffer NP [Primary Care Provider] - Time spent managing pt's care (in minutes): 50
[2023-08-20] MEDS: POTASSIUM 25 MEQ EFFERV TAB PO ONE (08:03)
[2023-08-20 08:30] VITALS: BP 176/78; TEMP 97
--- NOTE | 2023-08-21 15:46 | EKG ---
Test Date: 2023-08-19 Test Time: 05:45:41 Leather Drier: LOR MEASUREMENT RESULTS: Intervals: Rate: 62 DE: 178 QRSD: 148 QT: 478 QTc: 485 [place]: P: 93 DE: 178 QRS: -35 T: 28 INTERPRETIVE STATEMENTS: Normal sinus rhythm Left axis deviation Left bundle branch block Abnormal ECG Compared to ECG 07/22/2023 00:27:12 Left-axis deviation now present Electronically Signed On 08-21-23 15:40:38 CDT by Lan Dawson
== END 2023-08-20 09:12 | disposition home or self-care (01) ==
LOC: ER 04:48 → ERHOLD 07:27 → 4TH 11:17
PROVIDERS: ADMIT Internal Medicine; ATTEND Internal Medicine
DX: I50.33 Acute on chronic diastolic (congestive) heart failure (principal); E11.9 Type 2 diabetes mellitus without complications; I10 Essential (primary) hypertension; J44.9 Chronic obstructive pulmonary disease, unspecified; G47.33 Obstructive sleep apnea (adult) (pediatric); Z88.0 Allergy status to penicillin; M19.90 Unspecified osteoarthritis, unspecified site
CPT/HCPCS: 93005; 87040 ×2; 85025 ×2; 80048 ×2; 36415 ×2; 83735 ×2; 82550; 84100; 85610; 82947 ×5; 80076; 83605; 85730; 84484 ×3; 83690; 83880; 71045; 96374; 99285; J1815; J1940 ×3; J1650 ×2; G0378

== ENCOUNTER 2023-09-04 15:56 | Emergency (ER) | payer OTHER ==
[2023-09-04] MEDS ORDERED: FUROSEMIDE 40 MG/4 ML VIAL ONE ×2 (16:27→17:20)
--- NOTE | 2023-09-04 16:49 | RAD REPORT ---
EXAM DESCRIPTION: Rebecca Single View09/04/2023 4:24 pm CLINICAL HISTORY: Shortness of breath COMPARISON: August 28 1024 FINDINGS: Pulmonary vascular congestion is present. The lungs appear clear of acute infiltrate. The heart is mildly to moderately enlarged. Pacemaker ree ds in place
[2023-09-04 16:51] LABS: Absolute Basophils 0.1 K/uL (0-0.5); Absolute Eosinophils 0.1 K/uL (0-0.5); Absolute Monocytes 0.3 K/uL (0.1-1.3); Absolute Neutrophil 3.9 K/uL (1.8-8.0); Eosinophils % 1.1 % (0-4.4); Hematocrit 37.9 % (36.0-45.0); Hemoglobin 12.3 g/dL (12.0-15.0); Lymphocytes % 18.6 % (15.3-44.8); MCH 28.2 pg (27.0-35.0); MCHC 32.4 g/dL (32.0-36.0); MCV 87.1 fL (80-100); MPV 10.3 fL (7.6-11.3); Monocytes % 6.3 % (3.3-12.3); PT Prothrombin Time 15.6 SECONDS (9.5-12.5); Platelets 193 thou/uL (152-406); Protime INR 1.43; RBC Red Blood Cell Count 4.34 M/uL (3.86-4.86); Red Cell Distribution Width 15.6 % (12.1-15.2)
[2023-09-04 17:01] LABS: Albumin 3.4 g/dL (3.4-5.0); Albumin/Globulin Ratio 0.9 (1.1-1.8); Anion Gap 7.6 mEq/L (5.0-15.0); Bilirubin Direct 0.2 mg/dL (0-0.2); Bilirubin Indirect, Calculated 0.3 mg/dL (0.2-0.8); Bilirubin Total 0.5 mg/dL (0.2-1.0); Globulin 3.9 g/dL (2.3-3.5); Magnesium 2.1 mg/dL (1.6-2.4); Potassium 3.6 mEq/L (3.5-5.1); Protein, Total 7.3 g/dL (6.4-8.2); Troponin High Sensitivity 15.3 pg/mL (<58.9)
--- NOTE | 2023-09-04 17:18 | EDPHYS ---
Physician Documentation [facility] [place] Name: Sukh York Age: 63 yrs Sex: Female : 1960 Arrival Date: 09/04/2023 Time: 15:56 Bed 6 Private MD: ED Physician Linn Hernandez HPI: 09/03 16:23 This 63 yrs old Female presents to ER via EMS with complaints of shortness of sp3 breath and swollen ankles. 16:24 63-year-old female with history of CHF, COPD, diabetes, hypertension now presents to [facility] the ED with chief complaint shortness of breath on exertion on supination and peripheral edema in the lower extremities. She believes she is having fluid overload and CHF exacerbation. Patient denies any chest pain, abdominal pain, vomiting, diarrhea, rash, syncope, near syncope, focal neurological deficit, significant travel history, known sick contacts, prolonged immobilization, or any other signs or symptoms on ROS at this time.. Historical: - Allergies: 16:14 PENICILLINS; ld1 - PMHx: 16:14 Aneurysm; Arthritis; CHF; COPD; Diabetes - NIDDM; Hypertension; ld1 - PSHx: 16:14 back; defibrillator; ld1 - Immunization history:: Adult Immunizations up to date. - Infectious Disease History:: Denies. - Social history:: Smoking status: Patient denies any tobacco usage or history of. Patient/guardian denies using alcohol. ROS: 16:26 Constitutional: Negative for fever, chills, and weight loss, Eyes: Negative for injury, sp3 pain, redness, and discharge, ENT: Negative for injury, pain, and discharge, Neck: Negative for injury, pain, and swelling, Abdomen/GI: Negative for abdominal pain, nausea, vomiting, diarrhea, and constipation, Back: Negative for injury and pain, Skin: Negative for injury, rash, and discoloration, Neuro: Negative for headache, weakness, numbness, tingling, and seizure, Psych: Negative for depression, anxiety, suicide ideation, homicidal ideation, and hallucinations, Allergy/Immunology: Negative for hives, rash, and allergies, Endocrine: Negative for neck swelling, polydipsia, polyuria, polyphagia, and marked weight changes, 16:26 All other systems are negative, Exam: 16:26 Constitutional: This is a well developed, well nourished patient who is awake, alert, sp3 and in no acute distress. Head/Face: Normocephalic, atraumatic. Eyes: Pupils equal round and reactive to light, extra-ocular motions intact. Lids and lashes normal. Conjunctiva and sclera are non-icteric and not injected. Cornea within normal limits. Periorbital areas with no swelling, redness, or edema. Neck: Trachea midline, no thyromegaly or masses palpated, and no cervical lymphadenopathy. Supple, full range of motion without nuchal rigidity, or vertebral point tenderness. No Meningismus. Chest/axilla: Normal chest wall appearance and motion. Nontender with no deformity. No lesions are appreciated. Cardiovascular: Regular rate and rhythm with a normal S1 and S2. No gallops, murmurs, or rubs. Normal PMI, no JVD. No pulse deficits. Abdomen/GI: Soft, non-tender, with normal bowel sounds. No distension or tympany. No guarding or rebound. No evidence of tenderness throughout. Back: No spinal tenderness. No costovertebral tenderness. Full range of motion. Neuro: Awake and alert, GCS 15, oriented to person, place, time, and situation. Cranial nerves II-XII grossly intact. Motor strength 5/5 in all extremities. Sensory grossly intact. Cerebellar exam normal. Normal gait. Psych: Awake, alert, with orientation to person, place and time. Behavior, mood, and affect are within normal limits. 16:26 Respiratory: Rales bilaterally, 16:26 Musculoskeletal/extremity: 2+ pitting edema bilaterally lower extremities. Vital Signs: 16:13 BP 122 / 74; Pulse 78; Resp 18; Temp 97.6(TE); Pulse Ox 99% on R/A; Weight 99.79 kg; ld1 Height 5 ft. 4 in. ; Pain 0/10; 16:35 BP 121 / 77; Pulse 83; Resp 18; Pulse Ox 98% on R/A; ld1 16:13 Body Mass Index 37.76 (99.79 kg, 162.56 cm) ld1 16:13 Pain Scale: Adult ld1 MDM: 16:00 Patient medically screened. sp3 16:27 Data reviewed: vital signs, nurses notes, EMS record, old medical records, lab test sp3 result(s), EKG, radiologic studies. ED course: 63-year-old female with probable CHF exacerbation versus other respiratory process. She has 2+ pedal edema and history of CHF. Will obtain EKG, chest x-ray laboratory values and administer Lasix with probable admission versus discharge depending on results and patient course. I am not highly suspicious for acute coronary syndrome, TAD, PE, sepsis, shock or any other critical process at this time.. 17:16 ED course: BNP at 1900 and remainder of labs within normal limits. EKG without sp3 significant findings. We will administer second Lasix dose and safely discharge patient home at this time.. 09/03 16:01 Order name: Basic Metabolic Panel; Complete Time: 17:16 sp3 09/03 16:01 Order name: CBC with Diff; Complete Time: 17:16 sp3 09/03 16:01 Order name: LFT's; Complete Time: 17:16 sp3 09/03 16:01 Order name: Magnesium; Complete Time: 17:16 sp3 09/03 16:01 Order name: NT PRO-BNP; Complete Time: 17:16 sp3 09/03 16:01 Order name: PT-INR; Complete Time: 17:16 sp3 09/03 16:01 Order name: Troponin HS; Complete Time: 17:16 sp3 09/03 16:01 Order name: XRAY Chest (1 view); Complete Time: 17:16 sp3 09/03 16:01 Order name: EKG; Complete Time: 16:02 sp3 09/03 16:01 Order name: Cardiac monitoring; Complete Time: 16:04 sp3 09/03 16:01 Order name: EKG - Nurse/Tech; Complete Time: 16:22 sp3 09/03 16:01 Order name: IV Saline Lock; Complete Time: 16:35 sp3 09/03 16:01 Order name: Labs collected and sent; Complete Time: 16:35 sp3 09/03 16:01 Order name: O2 Per Protocol; Complete Time: 16:04 sp3 09/03 16:01 Order name: O2 Sat Monitoring; Complete Time: 16:04 sp3 Administered Medications: 16:35 Drug: Furosemide IVP 40 mg IVP once; give over 2 minutes Route: IVP; Site: right ld1 antecubital; 17:27 Drug: Furosemide IVP 40 mg IVP once; give over 2 minutes Route: IVP; Site: right ld1 antecubital; Disposition Summary: 09/04/23 17:17 Discharge Ordered Notes: Location: Home sp3 Condition: Stable sp3 Diagnosis - Congestive heart failure exacerbation sp3 Followup: sp3 - With: Private Physician - When: Upon discharge from the Emergency Department - Reason: Continuance of care Discharge Instructions: - Discharge Summary Sheet sp3 - Heart Failure Exacerbation sp3 Forms: - Medication Reconciliation Form sp3 - Thank You Letter sp3 - Antibiotic Education sp3 - Prescription Opioid Use sp3 - Patient Portal Instructions sp3 - Leadership Thank You Letter sp3 Signatures: Dispatcher [employer] Layne Sandoval RN RN ld1 Linn Hernandez MD MD sp3
--- NOTE | 2023-09-04 17:18 | ER ---
Nurse's Notes [facility] [place] Name: Sukh York Age: 63 yrs Sex: Female : 1960 Arrival Date: 09/04/2023 Time: 15:56 Bed 6 Private MD: Diagnosis: Congestive heart failure exacerbation Presentation: 09/03 16:13 Chief complaint: EMS states: toned out to patient home for swelling to FRANSISCO feet \T\ SOB. ld1 Pt reports having heart failure. Coronavirus screen: At this time, the client does not indicate any symptoms associated with coronavirus-19. Ebola Screen: No symptoms or risks identified at this time. Initial Sepsis Screen: Does the patient meet any 2 criteria? No. Patient's initial sepsis screen is negative. Does the patient have a suspected source of infection? No. Patient's initial sepsis screen is negative. Risk Assessment: Do you want to hurt yourself or someone else? Patient reports no desire to harm self or others. Onset of symptoms was September 04, 2023 at 16:14. 16:13 Method Of Arrival: EMS: [facility] ld1 16:13 Acuity: RADHA 3 ld1 Triage Assessment: 16:14 General: Appears in no apparent distress. comfortable, Behavior is calm, cooperative, ld1 appropriate for age. Pain: Denies pain. EENT: No signs and/or symptoms were reported regarding the EENT system. Neuro: Level of Consciousness is awake, alert, obeys commands, Oriented to person, place, time, situation. Cardiovascular: Capillary refill < 3 seconds Patient's skin is warm and dry. Rhythm is sinus rhythm. Respiratory: Airway is patent Respiratory effort is even, unlabored. GI: Abdomen is round non-distended. : No signs and/or symptoms were reported regarding the genitourinary system. Derm: No signs and/or symptoms reported regarding the dermatologic system. Musculoskeletal: No signs and/or symptoms reported regarding the musculoskeletal system. Historical: - Allergies: 16:14 PENICILLINS; ld1 - PMHx: 16:14 Aneurysm; Arthritis; CHF; COPD; Diabetes - NIDDM; Hypertension; ld1 - PSHx: 16:14 back; defibrillator; ld1 - Immunization history:: Adult Immunizations up to date. - Infectious Disease History:: Denies. - Social history:: Smoking status: Patient denies any tobacco usage or history of. Patient/guardian denies using alcohol. Screenin:27 [facility] ED Fall Risk Assessment (Adult) History of falling in the last 3 months, ld1 including since admission No falls in past 3 months (0 pts). Abuse screen: Denies threats or abuse. Denies injuries from another. Nutritional screening: No deficits noted. Nutritional screening: No deficits noted. Tuberculosis screening: No symptoms or risk factors identified. Assessment: 16:35 Reassessment: See triage assessment. ld1 17:27 Reassessment: Patient appears in no apparent distress at this time. No changes from ld1 previously documented assessment. Patient and/or family updated on plan of care and expected duration. Pain level reassessed. Patient is alert, oriented x 3, equal unlabored respirations, skin warm/dry/pink. Patient states symptoms have improved. Vital Signs: 16:13 BP 122 / 74; Pulse 78; Resp 18; Temp 97.6(TE); Pulse Ox 99% on R/A; Weight 99.79 kg; ld1 Height 5 ft. 4 in. ; Pain 0/10; 16:35 BP 121 / 77; Pulse 83; Resp 18; Pulse Ox 98% on R/A; ld1 16:13 Body Mass Index 37.76 (99.79 kg, 162.56 cm) ld1 16:13 Pain Scale: Adult ld1 ED Course: 16:00 Patient arrived in ED. as6 16:00 Linn Hernandez MD is Attending Physician. sp3 16:03 Georgina Harman, RN is Primary Nurse. ko1 16:14 Triage completed. ld1 16:14 Arm band placed on right wrist. ld1 16:26 XRAY Chest (1 view) In Process Unspecified. EDMS 16:35 No provider procedures requiring assistance completed. Inserted saline lock: 20 gauge ld1 in right antecubital area, using aseptic technique. Blood collected. 17:28 Patient has correct armband on for positive identification. Placed in gown. Bed in low ld1 position. Call light in reach. Side rails up X2. monitor technician on. Pulse ox on. NIBP on. Door closed. Noise minimized. Warm blanket given. 17:28 IV discontinued, intact, bleeding controlled, No redness/swelling at site. ld1 Administered Medications: 16:35 Drug: Furosemide IVP 40 mg IVP once; give over 2 minutes Route: IVP; Site: right ld1 antecubital; 17:27 Drug: Furosemide IVP 40 mg IVP once; give over 2 minutes Route: IVP; Site: right ld1 antecubital; Medication: 17:28 VIS not applicable for this client. ld1 Outcome: 17:17 Discharge ordered by . spJuan Luis 17:27 Discharged to home ambulatory, ld1 17:27 Condition: stable 17:27 Discharge instructions given to patient, Instructed on discharge instructions, follow up and referral plans. Demonstrated understanding of instructions, follow-up care, 17:28 Patient left the ED. ld1 Signatures: Dispatcher [employer] EDMS Layne Ponce RN RN ld1 Linn Hernandez MD MD sp3 Mamadou Narvaez RN RN as6 Georgina Harman RN RN ko1
[2023-09-05 03:14] VITALS: BP 121/77; TEMP 97.6; O2SAT 98
== END 2023-09-04 17:28 | disposition home or self-care (01) ==
LOC: ER 15:56
DX: I50.9 Heart failure, unspecified (principal); I10 Essential (primary) hypertension; Z95.810 Presence of automatic (implantable) cardiac defibrillator; Z88.0 Allergy status to penicillin
CPT/HCPCS: 93005; 85025; 80048; 36415; 83735; 85610; 80076; 84484; 83880; 71045; 96374; 99285; J1940 ×2

== ENCOUNTER 2023-09-20 20:39 | Emergency (ER) | payer OTHER ==
--- NOTE | 2023-09-20 21:18 | RAD REPORT ---
EXAM DESCRIPTION: RAD - Chest Single View - 09/20/2023 9:01 pm CLINICAL HISTORY: defibrillator firing COMPARISON: Chest Single View dated 09/04/2023; Chest Single View dated 08/29/2023; Chest Single View dated 08/19/2023; Chest Single View dated 07/22/2023 FINDINGS: Lines: None. Lungs: No evidence of edema or pneumonia. Pleural: No significant pleural effusions or pneumothorax. Cardiac: Mild cardiomegaly. Pacemaker/ICD. Mediastinum: Within normal limits. Bones: No acute fractures. Other: None IMPRESSION: No acute cardiopulmonary disease.
[2023-09-20 21:36] LABS: Absolute Eosinophils 0.2 K/uL (0-0.5); Absolute Lymphocytes (CBC) 1.5 K/uL (0.7-4.9); Absolute Monocytes 0.4 K/uL (0.1-1.3); Absolute Neutrophil 4.7 K/uL (1.8-8.0); Basophils % 0.6 % (0-1.3); Eosinophils % 2.3 % (0-4.4); Hematocrit 40.9 % (36.0-45.0); Hemoglobin 13.2 g/dL (12.0-15.0); Lymphocytes % 22.5 % (15.3-44.8); MCH 27.9 pg (27.0-35.0); MCHC 32.3 g/dL (32.0-36.0); MCV 86.4 fL (80-100); MPV 10.5 fL (7.6-11.3); Neutrophils % 68.6 % (41.7-73.7); Platelets 221 thou/uL (152-406); RBC Red Blood Cell Count 4.73 M/uL (3.86-4.86); Red Cell Distribution Width 15.3 % (12.1-15.2)
[2023-09-20 22:00] LABS: Anion Gap 5.5 mEq/L (5.0-15.0); Potassium 3.5 mEq/L (3.5-5.1); Troponin High Sensitivity 11.8 pg/mL (<58.9)
--- NOTE | 2023-09-20 22:36 | EDPHYS ---
Physician Documentation [facility] Name: Sukh York Age: 63 yrs Sex: Female : 1960 Arrival Date: 09/20/2023 Time: 20:39 Bed 6 Private MD: ED Physician Manpreet Ponce HPI: 09/19 21:31 This 63 yrs old Female presents to ER via Ambulatory with complaints of Chest ms3 Pain, Defibrillator problem. 21:31 63-year-old female with past medical history of aneurysm, arthritis, CHF, COPD, ms3 diabetes, hypertension presents to the emergency department for defibrillator shocking her. Patient denies chest pain, shortness of breath, nausea, vomiting, diaphoresis. Historical: - Allergies: 20:53 PENICILLINS; vc1 - PMHx: 20:53 Aneurysm; Arthritis; CHF; COPD; Diabetes - NIDDM; Hypertension; vc1 - PSHx: 20:53 back; defibrillator; vc1 - Immunization history:: Client reports receiving the 2nd dose of the Covid vaccine. - Infectious Disease History:: Denies. - Social history:: Smoking status: Patient denies any tobacco usage or history of. Patient/guardian denies using alcohol. ROS: 23:46 Constitutional: Negative for fever, and chills. Neck: Negative for injury, pain, and ms3 swelling, 23:46 Respiratory: Negative for shortness of breath, cough, wheezing, and pleuritic chest pain, Skin: Negative for injury, rash, and discoloration, 23:46 Cardiovascular: Positive for Defibrillator firing, Exam: 23:46 Constitutional: This is a well developed, well nourished patient who is awake, alert, ms3 and in no acute distress. Head/Face: Normocephalic, atraumatic. Chest/axilla: Normal chest wall appearance and motion. Nontender with no deformity. Cardiovascular: Regular rate and rhythm with a normal S1 and S2. No gallops, murmurs, or rubs. Normal PMI, no JVD. No pulse deficits. Respiratory: Lungs have equal breath sounds bilaterally, clear to auscultation and percussion. No rales, rhonchi or wheezes noted. No increased work of breathing, no retractions or nasal flaring. Abdomen/GI: Soft, non-tender, with normal bowel sounds. No distension or tympany. No guarding or rebound. No evidence of tenderness throughout. Skin: Warm, dry with normal turgor. Normal color with no rashes, no lesions, and no evidence of cellulitis. MS/ Extremity: Pulses equal, no cyanosis. Neurovascular intact. Full, normal range of motion. 09/20 00:39 ECG was reviewed by the Attending Physician. ms3 Vital Signs: 09/19 20:51 BP 143 / 55; Pulse 77; Resp 16; Temp 97.6; Pulse Ox 100% ; vc1 20:52 Weight 99.79 kg; Height 5 ft. 2 in. ; vc1 21:44 BP 142 / 95; Pulse 70; Resp 21; Pulse Ox 96% on R/A; tm6 22:31 BP 114 / 71; Pulse 67; Resp 20; Temp 97.6; Pulse Ox 100% on R/A; Pain 0/10; bm8 09/20 00:16 BP 111 / 63; Pulse 64; Resp 20; Temp 98.1(TE); Pulse Ox 93% on R/A; Pain 0/10; tm6 09/19 20:52 Body Mass Index 40.24 (99.79 kg, 157.48 cm) vc1 22:31 Pain Scale: Adult bm8 09/20 00:16 Pain Scale: Adult tm6 Coolidge Coma Score: 09/19 21:03 Eye Response: spontaneous(4). Motor Response: obeys commands(6). Verbal Response: bm8 oriented(5). Total: 15. 22:31 Eye Response: spontaneous(4). Motor Response: obeys commands(6). Verbal Response: bm8 oriented(5). Total: 15. MDM: 20:55 Patient medically screened. ms3 23:46 Differential diagnosis: abnormal EKG, acute myocardial infarction, coronary artery ms3 disease Defibrillator malfunction. Data reviewed: vital signs, nurses notes, lab test result(s), EKG, radiologic studies, and as a result, I will discharge patient. Care significantly affected by the following chronic conditions: Diabetes, Hypertension, Chronic Obstructive Pulmonary Disease. ED course: Discussed transfer to medical or regional as patient's defibrillator/pacemaker placed there. Patient understands and agrees with plan. All questions were answered. Patient accepted to [facility] ER without consultation.. 09/19 20:53 Order name: Basic Metabolic Panel; Complete Time: 22:21 ms3 09/19 20:53 Order name: CBC with Diff; Complete Time: 22:21 ms3 09/19 20:53 Order name: Troponin HS; Complete Time: 22:21 ms3 09/19 20:53 Order name: XRAY Chest (1 view); Complete Time: 21:26 ms3 09/19 20:53 Order name: EKG; Complete Time: 20:54 ms3 09/19 20:53 Order name: Cardiac monitoring; Complete Time: 21:03 ms3 09/19 20:53 Order name: EKG - Nurse/Tech; Complete Time: 20:55 ms3 09/19 20:53 Order name: IV Saline Lock; Complete Time: 21:03 ms3 09/19 20:53 Order name: Labs collected and sent; Complete Time: 21:03 ms3 09/19 20:53 Order name: O2 Per Protocol; Complete Time: 21:03 ms3 09/19 20:53 Order name: O2 Sat Monitoring; Complete Time: 21:03 ms3 EC/05 00:39 Rate is 77 beats/min. Rhythm is regular. Left axis deviation noted. QRS interval is ms3 prolonged. Clinical impression: ventricular paced rhythm. Interpreted by me. Reviewed by me. Administered Medications: No medications were administered Disposition Summary: 09/20/23 22:36 Transfer Ordered Notes: Transfer Location: Other Acute Care Facility ms3 Reason: Higher level of care ms3 Condition: Stable ms3 Problem: new ms3 Symptoms: are unchanged ms3 Accepting Physician: (09/21/23 00:25) [email or web address] Diagnosis - Defibrillator firing ms3 Forms: - Medication Reconciliation Form ms3 - SBAR form ms3 Signatures: Dispatcher [employer] EDMS Manpreet Ponce DO DO ms3 Sandhya Gagnon RN RN vc1 Nikki Romero RN RN tm6 Corrections: (The following items were deleted from the chart) 09/19 23:48 23:46 ED course: Discussed transfer to [facility] or regional as patient's ms3 defibrillator/pacemaker placed there. Patient understands and agrees with plan. All questions were answered.. ms3 09/20 00:25 09/19 22:36 Dr suero [email or web address]
--- NOTE | 2023-09-20 22:36 | ER ---
Nurse's Notes [facility] [place] Name: Sukh York Age: 63 yrs Sex: Female : 1960 Arrival Date: 09/20/2023 Time: 20:39 Bed 6 Private MD: Diagnosis: Defibrillator firing Presentation: 09/19 20:51 Chief complaint: Patient states: Defibrillator shocking. Coronavirus screen: Client vc1 denies travel out of the [place] in the last 14 days. At this time, the client does not indicate any symptoms associated with coronavirus-19. Ebola Screen: Patient negative for fever greater than or equal to 101.5 degrees Fahrenheit, and additional compatible Ebola Virus Disease symptoms Patient denies exposure to infectious person. Patient denies travel to an Ebola-affected area in the 21 days before illness onset. No symptoms or risks identified at this time. Initial Sepsis Screen: Does the patient meet any 2 criteria? No. Patient's initial sepsis screen is negative. Does the patient have a suspected source of infection? No. Patient's initial sepsis screen is negative. Risk Assessment: Do you want to hurt yourself or someone else? Patient reports no desire to harm self or others. Onset of symptoms was September 20, 2023. 20:51 Method Of Arrival: Ambulatory vc1 20:51 Acuity: RADHA 3 vc1 Historical: - Allergies: 20:53 PENICILLINS; vc1 - PMHx: 20:53 Aneurysm; Arthritis; CHF; COPD; Diabetes - NIDDM; Hypertension; vc1 - PSHx: 20:53 back; defibrillator; vc1 - Immunization history:: Client reports receiving the 2nd dose of the Covid vaccine. - Infectious Disease History:: Denies. - Social history:: Smoking status: Patient denies any tobacco usage or history of. Patient/guardian denies using alcohol. Screenin:46 [facility] ED Fall Risk Assessment (Adult) History of falling in the last 3 months, tm6 including since admission No falls in past 3 months (0 pts) Confusion or Disorientation No (0 pts) Intoxicated or Sedated No (0 pts) Impaired Gait No (0 pts) Mobility Assist Device Used No (0 pt) Altered Elimination No (0 pt) Score/Fall Risk Level 0 - 2 = Low Risk Oriented to surroundings, Maintained a safe environment. Abuse screen: Denies threats or abuse. Denies injuries from another. Nutritional screening: No deficits noted. Tuberculosis screening: No symptoms or risk factors identified. Assessment: 20:46 General: Appears uncomfortable, Behavior is calm, cooperative. Pain:. Pain: Complains tm6 of pain in anterior aspect of left upper chest Pain does not radiate. Pain currently is 9 out of 10 on a pain scale. Quality of pain is described as tight Pain began suddenly. Neuro: No deficits noted. Level of Consciousness is awake, alert, obeys commands, Oriented to person, place, time, situation. Cardiovascular: Reports lightheadedness, shortness of breath, AICD firing Patient's skin is warm and dry. Respiratory: Airway is patent Respiratory effort is labored, Respiratory pattern is regular. GI: No signs and/or symptoms were reported involving the gastrointestinal system. Abdomen is round non-distended. : No signs and/or symptoms were reported regarding the genitourinary system. EENT: No signs and/or symptoms were reported regarding the EENT system. Derm: No signs and/or symptoms reported regarding the dermatologic system. Musculoskeletal: No signs and/or symptoms reported regarding the musculoskeletal system. 21:44 Reassessment: patient states her AICD continues to fire. tm6 22:31 Reassessment: Patient appears in no apparent distress at this time. Patient and/or bm8 family updated on plan of care and expected duration. Pain level reassessed. Patient is alert, oriented x 3, equal unlabored respirations, skin warm/dry/pink. pt states that she is feeling shock from defibilator but on cardiac monitoring and ekg no signs of shocks seen. Pt currently denies pain and states that she hasnt felt one in awhile now. Patient denies pain at this time. Patient states feeling better. Patient states symptoms have improved. 23:49 Reassessment: report given to Dr. Lakhani at [facility]. tm6 09/20 00:16 Reassessment: Patient appears in no apparent distress at this time. No changes from tm6 previously documented assessment. Vital Signs: 09/19 20:51 BP 143 / 55; Pulse 77; Resp 16; Temp 97.6; Pulse Ox 100% ; vc1 20:52 Weight 99.79 kg; Height 5 ft. 2 in. ; vc1 21:44 BP 142 / 95; Pulse 70; Resp 21; Pulse Ox 96% on R/A; tm6 22:31 BP 114 / 71; Pulse 67; Resp 20; Temp 97.6; Pulse Ox 100% on R/A; Pain 0/10; bm8 0505 00:16 BP 111 / 63; Pulse 64; Resp 20; Temp 98.1(TE); Pulse Ox 93% on R/A; Pain 0/10; tm6 09/19 20:52 Body Mass Index 40.24 (99.79 kg, 157.48 cm) vc1 22:31 Pain Scale: Adult bm8 09/20 00:16 Pain Scale: Adult tm6 [place] Coma Score: 09/19 21:03 Eye Response: spontaneous(4). Motor Response: obeys commands(6). Verbal Response: bm8 oriented(5). Total: 15. 22:31 Eye Response: spontaneous(4). Motor Response: obeys commands(6). Verbal Response: bm8 oriented(5). Total: 15. ED Course: 20:40 Patient arrived in ED. jj6 20:46 Nikki Romero, DAY is Primary Nurse. tm6 20:46 Manpreet Ponce DO is Attending Physician. ms3 20:46 Patient has correct armband on for positive identification. Placed in gown. Bed in low tm6 position. Call light in reach. Side rails up X 1. Provided Education on: use of call salazar. Client placed on continuous cardiac and pulse oximetry monitoring. NIBP monitoring applied. gambling monitor on. Pulse ox on. NIBP on. Noise minimized. Warm blanket given. 20:46 Arm band placed on right wrist. tm6 20:46 O2 via room air. tm6 20:51 EKG done, by ED staff, reviewed by Manpreet Ponce DO. oe 20:52 Triage completed. vc1 21:02 XRAY Chest (1 view) In Process Unspecified. EDMS 21:03 No provider procedures requiring assistance completed. Inserted saline lock: 20 gauge bm8 in right antecubital area, using aseptic technique. Blood collected. 09/20 00:17 Patient transferred, IV remains in place. tm6 Administered Medications: No medications were administered Medication: 09/19 20:46 VIS not applicable for this client. tm6 Outcome: 22:36 ER care complete, transfer ordered by ms3 09/20 00:16 Transferred by ground [facility]. tm6 Condition: stable Instructed on the need for transfer, Demonstrated understanding of instructions, 00:25 Patient left the ED. tm6 Signatures: Dispatcher [employer] EDMS Ifeanyi Gutierrez Marcus, DO DO ms3 Rika Tovar jj6 Sandhya Gagnon RN RN vc1 Nikki Rmoero RN RN tm6 Hussain Wells RN RN bm8
[2023-09-21 01:13] VITALS: BP 111/63; O2SAT 93
[2023-09-21 01:14] VITALS: TEMP 98.1
--- NOTE | 2023-09-22 14:42 | EKG ---
Test Date: 2023-09-20 Test Time: 20:47:00 Guitar Technician: AMBROSIO MEASUREMENT RESULTS: Intervals: Rate: 77 [place]: 172 QRSD: 160 QT: 408 QTc: 461 [place]: P: 88 [place]: 172 QRS: -41 T: 89 INTERPRETIVE STATEMENTS: Atrial-sensed ventricular-paced rhythm Biventricular pacemaker detected Abnormal ECG Compared to ECG 09/04/2023 16:20:29 Sinus rhythm no longer present Left bundle-branch block no longer present Electronically Signed On 09-22-23 14:38:24 CDT by Lan Dawson
== END 2023-09-21 00:25 ==
LOC: ER 20:39
DX: T82.897A Other specified complication of cardiac prosthetic devices, implants and grafts, initial encounter (principal); Z95.810 Presence of automatic (implantable) cardiac defibrillator; R07.9 Chest pain, unspecified; I10 Essential (primary) hypertension; I50.9 Heart failure, unspecified; Z88.0 Allergy status to penicillin
CPT/HCPCS: 36415; 71045; 80048; 84484; 85025; 93005; 99285

== ENCOUNTER 2023-10-10 01:08 | Emergency (ER) | payer OTHER ==
[2023-10-10 01:43] LABS: Absolute Basophils 0.1 K/uL (0-0.5); Absolute Eosinophils 0.1 K/uL (0-0.5); Absolute Lymphocytes (CBC) 1.1 K/uL (0.7-4.9); Absolute Monocytes 0.4 K/uL (0.1-1.3); Absolute Neutrophil 5.1 K/uL (1.8-8.0); Basophils % 0.9 % (0-1.3); Eosinophils % 1.6 % (0-4.4); Hematocrit 38.7 % (36.0-45.0); Hemoglobin 12.3 g/dL (12.0-15.0); MCH 27.5 pg (27.0-35.0); MCHC 31.9 g/dL (32.0-36.0); MCV 86.1 fL (80-100); MPV 10.1 fL (7.6-11.3); Monocytes % 5.5 % (3.3-12.3); Platelets 150 thou/uL (152-406); RBC Red Blood Cell Count 4.49 M/uL (3.86-4.86); Red Cell Distribution Width 16.4 % (12.1-15.2)
[2023-10-10 01:50] LABS: Protime INR 1.19
[2023-10-10 02:03] LABS: ALT/SGPT 18 U/L (13-56); Albumin 3.5 g/dL (3.4-5.0); Albumin/Globulin Ratio 0.9 (1.1-1.8); Alkaline Phosphatase 76 U/L (45-117); Anion Gap 7.7 mEq/L (5.0-15.0); BUN Blood Urea Nitrogen 24 mg/dL (7-18); Bicarbonate 29 mEq/L (21-32); Bilirubin Direct 0.2 mg/dL (0-0.2); Bilirubin Indirect, Calculated 0.4 mg/dL (0.2-0.8); Bilirubin Total 0.6 mg/dL (0.2-1.0); Globulin 3.9 g/dL (2.3-3.5); Glomerular Filtration Rate 68 ml/min (=/>90); Glucose Level 128 mg/dL (74-106); Magnesium 2.2 mg/dL (1.6-2.4); NT PRO-BNP 2586 pg/mL (<125); Potassium 3.7 mEq/L (3.5-5.1); Protein, Total 7.4 g/dL (6.4-8.2); Sodium Level 137 mEq/L (136-145); Troponin High Sensitivity 18.3 pg/mL (<58.9)
[2023-10-10 02:26] LABS: AST/SGOT < 10 U/L (15-37)
[2023-10-10] MEDS ORDERED: FUROSEMIDE 40 MG/4 ML VIAL ONE (02:34)
--- NOTE | 2023-10-10 02:35 | ER ---
Nurse's Notes [facility] [place] Name: Sukh York Age: 63 yrs Sex: Female : 1960 Arrival Date: 10/10/2023 Time: 01:08 Bed 5 Private MD: Diagnosis: CHF, peripheral edema Presentation: 10/09 01:11 Chief complaint: Patient states: SOB, productive cough, nasal congestion with bilateral pf1 chest wall pain of 7,onset . 01:11 Coronavirus screen: Vaccine status: Patient reports receiving the 2nd dose of the covid pf1 vaccine. Client denies travel out of the [place] in the last 14 days. Client presents with at least one sign or symptom that may indicate coronavirus-19. Ebola Screen: Patient negative for fever greater than or equal to 101.5 degrees Fahrenheit, and additional compatible Ebola Virus Disease symptoms. Initial Sepsis Screen: Does the patient meet any 2 criteria? No. Patient's initial sepsis screen is negative. Does the patient have a suspected source of infection? No. Patient's initial sepsis screen is negative. Risk Assessment: Do you want to hurt yourself or someone else? Patient reports no desire to harm self or others. Onset of symptoms was October 09, 2023. 01:11 Method Of Arrival: Wheelchair pf1 01:11 Acuity: RADHA 3 pf1 Triage Assessment: 01:11 General: Appears in no apparent distress. uncomfortable, obese, well groomed, well pf1 developed, Behavior is calm, cooperative, appropriate for age, quiet. 01:11 Pain: Complains of pain in chest. EENT: Reports nasal congestion. Cardiovascular: pf1 Reports chest pain. Respiratory: Reports shortness of breath cough that is Airway is patent Respiratory effort is even, unlabored, Respiratory pattern is regular, symmetrical, Onset: The symptoms/episode began/occurred yesterday. Historical: - Allergies: :43 PENICILLINS; pf1 - PMHx: :43 Aneurysm; Arthritis; CHF; COPD; Diabetes - NIDDM; Hypertension; pf1 - PSHx: :43 back; defibrillator; pf1 - Immunization history:: Adult Immunizations up to date, Client reports receiving the 2nd dose of the Covid vaccine, Moderna Last tetanus immunization: < 5 years ago Flu vaccine is up to date. - Infectious Disease History:: Denies. - Social history:: Smoking status: Patient denies any tobacco usage or history of. Patient/guardian denies using alcohol, street drugs. Screenin:30 [facility] ED Fall Risk Assessment (Adult) History of falling in the last 3 months, tm6 including since admission No falls in past 3 months (0 pts) Confusion or Disorientation No (0 pts) Intoxicated or Sedated No (0 pts) Impaired Gait No (0 pts) Mobility Assist Device Used No (0 pt) Altered Elimination No (0 pt) Score/Fall Risk Level 0 - 2 = Low Risk Oriented to surroundings, Maintained a safe environment, Provided non-skid footwear. Abuse screen: Denies threats or abuse. Denies injuries from another. Nutritional screening: No deficits noted. Tuberculosis screening: No symptoms or risk factors identified. Assessment: :30 General: Appears in no apparent distress. Behavior is calm, cooperative. Pain: Denies tm6 pain. Neuro: Level of Consciousness is awake, alert, obeys commands, Oriented to person, place, time, situation. Cardiovascular: No deficits noted. Patient's skin is warm and dry. Rhythm is regular. Respiratory: Airway is patent Respiratory effort is even, labored, Respiratory pattern is regular, Breath sounds with crackles. GI: Abdomen is round non-distended. GI: No signs and/or symptoms were reported involving the gastrointestinal system. : No deficits noted. No signs and/or symptoms were reported regarding the genitourinary system. EENT: No signs and/or symptoms were reported regarding the EENT system. Derm: No signs and/or symptoms reported regarding the dermatologic system. Musculoskeletal: No signs and/or symptoms reported regarding the musculoskeletal system. Vital Signs: 01:11 BP 109 / 75; Pulse 71; Resp 20; Temp 98.5; Pulse Ox 98% on R/A; Weight 99.79 kg; Height pf1 5 ft. 2 in. ; Pain 7/10; 02:55 BP 133 / 90; Pulse 76; Resp 19; Temp 97.8(TE); Pulse Ox 100% on R/A; Pain 0/10; tm6 01:11 Body Mass Index 40.24 (99.79 kg, 157.48 cm) pf1 01:11 Pain Scale: Adult pf1 02:55 Pain Scale: Adult tm6 ED Course: 01:11 Patient arrived in ED. jj6 01:11 Linn Hernandez MD is Attending Physician. sp3 01:17 Triage completed. pf1 01:26 EKG done, by ED staff. vk 01:30 Patient has correct armband on for positive identification. Placed in gown. Bed in low tm6 position. Call light in reach. Side rails up X2. Provided Education on: use of call salazar. Client placed on continuous cardiac and pulse oximetry monitoring. NIBP monitoring applied. block and case maker on. Pulse ox on. NIBP on. Door closed. Noise minimized. Warm blanket given. Pillow given. 01:30 Arm band placed on right wrist. tm6 01:35 XRAY Chest (1 view) In Process Unspecified. EDMS 01:39 Basic Metabolic Panel Sent. vk 01:39 CBC with Diff Sent. vk 01:39 LFT's Sent. vk 01:39 Magnesium Sent. vk 01:39 NT PRO-BNP Sent. vk 01:39 PT-INR Sent. vk 01:40 Troponin HS Sent. vk 01:40 Inserted saline lock: 22 gauge in right antecubital area, using aseptic technique. vk 01:40 Initial lab(s) drawn, by me, sent to lab. vk 02:55 No provider procedures requiring assistance completed. IV discontinued, intact, tm6 bleeding controlled, No redness/swelling at site. Pressure dressing applied. Administered Medications: 02:38 Drug: Furosemide IVP 40 mg IVP once; give over 2 minutes Route: IVP; Site: right tm6 antecubital; Medication: 01:30 VIS not applicable for this client. tm6 Outcome: 02:34 Discharge ordered by . sp3 02:56 Discharged to home ambulatory, with family, tm6 02:56 Condition: stable 02:56 Discharge instructions given to patient, family, Instructed on discharge instructions, follow up and referral plans. Demonstrated understanding of instructions, follow-up care, 02:57 Patient left the ED. tm6 Signatures: Dispatcher [employer] EDMS Linn Hernandez MD MD sp3 Rika Tovar jj6 Tisha Marie, RN RN pf1 Nikki Romero RN RN tm6 Elisabeth Benoit vk Corrections: (The following items were deleted from the chart) 01:43 01:37 Triage completed. pf1 pf1
--- NOTE | 2023-10-10 02:35 | EDPHYS ---
Physician Documentation [facility] [place] Name: Sukh York Age: 63 yrs Sex: Female : 1960 Arrival Date: 10/10/2023 Time: 01:08 Bed 5 Private MD: ED Physician Linn Hernandez HPI: 10/09 01:39 This 63 yrs old Female presents to ER via Wheelchair with complaints of sp3 Shortness Of Breath. 01:39 63-year-old female with history of CHF, COPD, diabetes, hypertension now [facility] ED with chief complaint shortness of breath on exertion on supination and peripheral edema in the lower extremities. She believes she is having fluid overload and CHF exacerbation. Patient denies any chest pain, abdominal pain, vomiting, diarrhea, rash, syncope, near syncope, focal neurological deficit, significant travel history, known sick contacts, prolonged immobilization, or any other signs or symptoms on ROS at this time.. . Historical: - Allergies: 01:43 PENICILLINS; pf1 - PMHx: 01:43 Aneurysm; Arthritis; CHF; COPD; Diabetes - NIDDM; Hypertension; pf1 - PSHx: 01:43 back; defibrillator; pf1 - Immunization history:: Adult Immunizations up to date, Client reports receiving the 2nd dose of the Covid vaccine, Moderna Last tetanus immunization: < 5 years ago Flu vaccine is up to date. - Infectious Disease History:: Denies. - Social history:: Smoking status: Patient denies any tobacco usage or history of. Patient/guardian denies using alcohol, street drugs. ROS: 01:40 Constitutional: Negative for fever, chills, and weight loss, Eyes: Negative for injury, sp3 pain, redness, and discharge, ENT: Negative for injury, pain, and discharge, Neck: Negative for injury, pain, and swelling, Abdomen/GI: Negative for abdominal pain, nausea, vomiting, diarrhea, and constipation, Back: Negative for injury and pain, MS/Extremity: Negative for injury and deformity, Skin: Negative for injury, rash, and discoloration, Neuro: Negative for headache, weakness, numbness, tingling, and seizure, Psych: Negative for depression, anxiety, suicide ideation, homicidal ideation, and hallucinations, Allergy/Immunology: Negative for hives, rash, and allergies, Endocrine: Negative for neck swelling, polydipsia, polyuria, polyphagia, and marked weight changes, Hematologic/Lymphatic: Negative for swollen nodes, abnormal bleeding, and unusual bruising, 01:40 All other systems are negative, Exam: 01:41 Constitutional: This is a well developed, well nourished patient who is awake, alert, sp3 and in no acute distress. Head/Face: Normocephalic, atraumatic. Eyes: Pupils equal round and reactive to light, extra-ocular motions intact. Lids and lashes normal. Conjunctiva and sclera are non-icteric and not injected. Cornea within normal limits. Periorbital areas with no swelling, redness, or edema. ENT: Nares patent. No nasal discharge, no septal abnormalities noted. External auditory canals are clear. Oropharynx with no redness, swelling, or masses, exudates, or evidence of obstruction, uvula midline. Mucous membranes moist. Neck: Trachea midline, no thyromegaly or masses palpated, and no cervical lymphadenopathy. Supple, full range of motion without nuchal rigidity, or vertebral point tenderness. No Meningismus. Chest/axilla: Normal chest wall appearance and motion. Nontender with no deformity. No lesions are appreciated. Cardiovascular: Regular rate and rhythm with a normal S1 and S2. No gallops, murmurs, or rubs. Normal PMI, no JVD. No pulse deficits. Abdomen/GI: Soft, non-tender, with normal bowel sounds. No distension or tympany. No guarding or rebound. No evidence of tenderness throughout. Back: No spinal tenderness. No costovertebral tenderness. Full range of motion. Skin: Warm, dry with normal turgor. Normal color with no rashes, no lesions, and no evidence of cellulitis. Neuro: Awake and alert, GCS 15, oriented to person, place, time, and situation. Cranial nerves II-XII grossly intact. Motor strength 5/5 in all extremities. Sensory grossly intact. Cerebellar exam normal. Normal gait. Psych: Awake, alert, with orientation to person, place and time. Behavior, mood, and affect are within normal limits. 01:41 Respiratory: Mild Rales bilaterally., 01:41 Musculoskeletal/extremity: Peripheral edema noted.. Vital Signs: 01:11 BP 109 / 75; Pulse 71; Resp 20; Temp 98.5; Pulse Ox 98% on R/A; Weight 99.79 kg; Height pf1 5 ft. 2 in. ; Pain 7/10; 02:55 BP 133 / 90; Pulse 76; Resp 19; Temp 97.8(TE); Pulse Ox 100% on R/A; Pain 0/10; tm6 01:11 Body Mass Index 40.24 (99.79 kg, 157.48 cm) pf1 01:11 Pain Scale: Adult pf1 02:55 Pain Scale: Adult tm6 MDM: 01:13 Patient medically screened. sp3 01:41 Data reviewed: vital signs, nurses notes, old medical records, lab test result(s), EKG, sp3 radiologic studies. ED course: 63-year-old female with shortness of breath. Differential diagnosis includes CHF, pneumonia, bronchitis, viral illness and to a lesser degree ACS spectrum. EKG demonstrates paced rhythm with adequate capture at a rate of 80 bpm. Full workup pending including x-ray and laboratory values. Will administer Lasix as needed and disposition home versus admission as indicated.. 02:33 ED course: BNP only at 2500 and remainder of workup negative. We will administer 1 dose sp3 of Lasix and discharged safely home with follow-up to PCP.. 10/09 01:13 Order name: Basic Metabolic Panel; Complete Time: 02:10/09 01:13 Order name: CBC with Diff; Complete Time: :10/09 01:13 Order name: LFT's; Complete Time: 02:10/09 01:13 Order name: Magnesium; Complete Time: 02:10/09 01:13 Order name: NT PRO-BNP; Complete Time: 02:10/09 01:13 Order name: PT-INR; Complete Time: 02: 10/09 01:13 Order name: Troponin HS; Complete Time: 02: 10/09 01:13 Order name: XRAY Chest (1 view) 10/09 01:13 Order name: EKG; Complete Time: 01:13 10/09 01:13 Order name: Cardiac monitoring; Complete Time: 01:39 10/09 01:13 Order name: EKG - Nurse/Tech; Complete Time: :10/09 01:13 Order name: IV Saline Lock; Complete Time: 01:39 sp3 10/09 01:13 Order name: Labs collected and sent; Complete Time: :43 sp3 10/09 01:13 Order name: O2 Per Protocol; Complete Time: :43 sp3 10/09 01:13 Order name: O2 Sat Monitoring; Complete Time: 01:43 sp3 Administered Medications: 02:38 Drug: Furosemide IVP 40 mg IVP once; give over 2 minutes Route: IVP; Site: right tm6 antecubital; Disposition Summary: 10/10/23 02:34 Discharge Ordered Notes: Location: Home sp3 Condition: Stable sp3 Diagnosis - CHF, peripheral edema sp3 Followup: sp3 - With: Private Physician - When: Upon discharge from the Emergency Department - Reason: Recheck today's complaints Discharge Instructions: - Discharge Summary Sheet sp3 - Heart Failure, Self-Care sp3 Forms: - Medication Reconciliation Form sp3 - Antibiotic Education sp3 - Prescription Opioid Use sp3 - Patient Portal Instructions sp3 - Leadership Thank You Letter sp3 - Family Work Release pf1 Signatures: Dispatcher [employer] Linn Guzman MD MD sp3 Tisha Marie, DAY RN pf1 Nikki Romero RN RN tm6
[2023-10-10 03:22] VITALS: BP 133/90; TEMP 97.8; O2SAT 100
--- NOTE | 2023-10-10 14:50 | RAD REPORT ---
EXAM DESCRIPTION: RAD - Chest Single View - 10/10/2023 1:33 am CLINICAL HISTORY: Dyspnea COMPARISON: Chest 1 View AP 08/19/2023 TECHNIQUE: Chest 1 View AP FINDINGS: Trachea midline. Mild aortic arch calcification. Heart size upper limits normal. Lungs clear without evidence of consolidation, mass, or significant pulmonary edema. No significant pleural effusion or pneumothorax. Thoracic spine degenerative disease. Biventricular cardiac pacemaker/AICD reidentified. IMPRESSION: 1. Upper limits normal heart size. 2. Biventricular cardiac pacemaker/AICD reidentified. Electronically signed by: Amari Negron MD 10/10/2023 01:58 AM CDT RP Due to temporary technical issues with the PACS/Fluency reporting system, reports are being signed by the in house radiologists without review as a courtesy to insure prompt reporting. The interpreting radiologist is fully responsible for the content of the report.
--- NOTE | 2023-10-10 15:41 | EKG ---
Test Date: 2023-10-10 Test Time: 01:20:26 Air Conditioning Engineer: LOR MEASUREMENT RESULTS: Intervals: Rate: 79 [place]: 132 QRSD: 194 QT: 468 QTc: 536 [place]: P: 96 [place]: 132 QRS: -40 T: 105 INTERPRETIVE STATEMENTS: Atrial-sensed ventricular-paced rhythm Biventricular pacemaker detected Abnormal ECG Compared to ECG 09/20/2023 20:47:00 No significant changes Electronically Signed On 10-10-23 15:40:25 CDT by Victor Hugo Thomas
== END 2023-10-10 02:57 | disposition home or self-care (01) ==
LOC: ER 01:08
DX: I50.9 Heart failure, unspecified (principal); R60.9 Edema, unspecified; J44.9 Chronic obstructive pulmonary disease, unspecified; I10 Essential (primary) hypertension; E11.9 Type 2 diabetes mellitus without complications; Z88.0 Allergy status to penicillin; Z95.810 Presence of automatic (implantable) cardiac defibrillator
CPT/HCPCS: 93005; 85025; 80048; 36415; 83735; 85610; 80076; 84484; 83880; 71045; 96374; 99285; J1940

== ENCOUNTER 2023-10-23 11:45 | Inpatient (IN) | payer OTHER ==
[2023-10-23 12:19] LABS: Absolute Lymphocytes (CBC) 1.3 K/uL (0.7-4.9); Absolute Monocytes 0.3 K/uL (0.1-1.3); Absolute Neutrophil 12.1 K/uL (1.8-8.0); Basophils % 0.2 % (0-1.3); Eosinophils % 0.3 % (0-4.4); Hematocrit 43.3 % (36.0-45.0); Hemoglobin 13.9 g/dL (12.0-15.0); Lymphocytes % 9.6 % (15.3-44.8); MCH 26.9 pg (27.0-35.0); MCHC 32.1 g/dL (32.0-36.0); MCV 83.8 fL (80-100); MPV 10.7 fL (7.6-11.3); Monocytes % 2.5 % (3.3-12.3); Neutrophils % 87.4 % (41.7-73.7); Platelets 245 thou/uL (152-406); RBC Red Blood Cell Count 5.16 M/uL (3.86-4.86); Red Cell Distribution Width 16.6 % (12.1-15.2)
[2023-10-23 12:34] LABS: Magnesium 2.3 mg/dL (1.6-2.4); Troponin High Sensitivity 18.6 pg/mL (<58.9)
[2023-10-23 13:02] LABS: Blood Morphology Comment NOT SEEN (NOT SEEN); Platelet Estimate ADEQ; White Blood Cell Scan OK (OK)
[2023-10-23] MEDS ORDERED: MORPHINE 4 MG/ML SYR ONE (13:28)
--- NOTE | 2023-10-23 14:38 | ER ---
Nurse's Notes [facility] [place] Name: Sukh York Age: 63 yrs Sex: Female : 1960 Arrival Date: 10/23/2023 Time: 11:45 Bed 19 Private MD: Diagnosis: Chest pain, unspecified;Nausea with vomiting, unspecified Presentation: 10/22 12:03 Chief complaint: EMS states: Called to Dr. Hernandez office due to patient having cm10 chest pain and shortness of breath. Pt states that the chest pain started suddenly. Pt states the pain is directly behind her defibrillator and radiates to her back and down her left arm. Pt rates the pain a 10/10 and describes it as pressure. Coronavirus screen: Client denies travel out of the [place] in the last 14 days. At this time, the client does not indicate any symptoms associated with coronavirus-19. Ebola Screen: Patient denies travel to an Ebola-affected area in the 21 days before illness onset. No symptoms or risks identified at this time. Initial Sepsis Screen: Does the patient meet any 2 criteria? HR > 90 bpm. Does the patient have a suspected source of infection? No. Patient's initial sepsis screen is negative. Risk Assessment: Do you want to hurt yourself or someone else? Patient reports no desire to harm self or others. Onset of symptoms was October 23, 2023. Care prior to arrival: Medication(s) given: ASA, 81 mg, x 4, Normal saline infusion, 300 Fentanyl 50mcg IV initiated. 18 GA, in the right antecubital area. 12:03 Method Of Arrival: EMS: [facility] cm10 12:03 Acuity: RADHA 2 cm10 Triage Assessment: 12:06 General: Appears in no apparent distress. uncomfortable, Behavior is calm, cooperative. cm10 Pain: Complains of pain in chest Pain radiates to back and left arm Pain currently is 10 out of 10 on a pain scale. Quality of pain is described as pressure, Pain began suddenly, Also complains of nausea, shortness of breath. Neuro: No deficits noted. Level of Consciousness is awake, alert, obeys commands, Oriented to person, place, time, situation, Appropriate for age. Cardiovascular: Heart tones present Patient's skin is warm and dry. Rhythm is ventricular pacer Chest pain is described as Pain is 10 out of 10 on a pain scale. quality is pressure, is located in left radiates to left arm(s) back began suddenly. Respiratory: No deficits noted. Airway is patent Respiratory effort is even, unlabored, Respiratory pattern is regular, symmetrical, Breath sounds are clear bilaterally. Derm: No deficits noted. Skin is healthy with good turgor, Skin is pink, warm \T\ dry. Musculoskeletal: Range of motion: intact in all extremities. Historical: - Allergies: 12:06 PENICILLINS; cm10 - PMHx: 12:06 Aneurysm; Arthritis; CHF; COPD; Diabetes - NIDDM; Hypertension; cm10 - PSHx: 12:06 back; defibrillator; cm10 - Immunization history:: Adult Immunizations up to date. - Infectious Disease History:: Denies. - Social history:: Smoking status: Patient denies any tobacco usage or history of. Screenin:54 [facility] ED Fall Risk Assessment (Adult) History of falling in the last 3 months, cm10 including since admission No falls in past 3 months (0 pts) Confusion or Disorientation No (0 pts) Intoxicated or Sedated No (0 pts) Impaired Gait No (0 pts) Mobility Assist Device Used No (0 pt) Altered Elimination No (0 pt) Score/Fall Risk Level 0 - 2 = Low Risk Oriented to surroundings, Maintained a safe environment, Hourly rounding (assess needs \T\ fall precautionary measures) done. Abuse screen: Denies threats or abuse. Denies injuries from another. Nutritional screening: No deficits noted. Tuberculosis screening: No symptoms or risk factors identified. Assessment: 13:05 General: Pt ambulating to restroom. Pt states that her chest pain is coming back. cm10 Provider made aware.. 13:30 Reassessment: Patient appears in no apparent distress at this time. No changes from cm10 previously documented assessment. Patient and/or family updated on plan of care and expected duration. Pain level reassessed. Patient is alert, oriented x 3, equal unlabored respirations, skin warm/dry/pink. 13:53 Reassessment: Pt assisted to restroom at this time. cm10 15:00 Reassessment: Patient appears in no apparent distress at this time. No changes from cm10 previously documented assessment. Patient and/or family updated on plan of care and expected duration. Pain level reassessed. Patient is alert, oriented x 3, equal unlabored respirations, skin warm/dry/pink. 16:30 Reassessment: Patient appears in no apparent distress at this time. No changes from cm10 previously documented assessment. Patient and/or family updated on plan of care and expected duration. Pain level reassessed. Patient is alert, oriented x 3, equal unlabored respirations, skin warm/dry/pink. 18:00 Reassessment: Patient appears in no apparent distress at this time. No changes from cm10 previously documented assessment. Patient and/or family updated on plan of care and expected duration. Pain level reassessed. Patient is alert, oriented x 3, equal unlabored respirations, skin warm/dry/pink. Vital Signs: 12:03 BP 126 / 93; Pulse 96; Resp 18; Temp 98.4; Pulse Ox 97% on R/A; Weight 93.44 kg; Height cm10 5 ft. 2 in. ; Pain 10/10; 12:30 BP 115 / 71; Pulse 80; Resp 18; Pulse Ox 96% on R/A; cm10 13:30 BP 97 / 73; Pulse 77; Resp 18; Pulse Ox 100% on R/A; cm10 13:50 BP 112 / 71; Pulse 80; Resp 16; Pulse Ox 98% on R/A; cm10 14:30 BP 113 / 63; Pulse 73; Resp 18; Pulse Ox 99% on R/A; cm10 15:00 BP 107 / 70; Pulse 72; Resp 16; Pulse Ox 99% on R/A; cm10 15:30 BP 114 / 75; Pulse 75; Resp 19; Pulse Ox 97% on R/A; cm10 16:00 BP 118 / 77; Pulse 77; Resp 18; Pulse Ox 98% on R/A; cm10 16:30 BP 110 / 63; Pulse 72; Resp 18; Pulse Ox 100% on R/A; cm10 17:00 BP 114 / 87; Pulse 72; Resp 18; Pulse Ox 96% ; cm10 12:03 Body Mass Index 37.68 (93.44 kg, 157.48 cm) cm10 12:03 Pain Scale: Adult cm10 Vitals: 12:08 Cardiac Rhythm Assessment Paced. cm10 ED Course: 11:50 Patient arrived in ED. cm10 11:51 Manpreet Ponce DO is Attending Physician. ms3 12:03 Mirta Lutz, RN is Primary Nurse. cm10 12:06 Triage completed. cm10 12:07 Arm band placed on Patient placed in an exam room, on a stretcher. EKG completed in cm10 triage. Results shown to MD. 12:08 Client placed on continuous cardiac and pulse oximetry monitoring. NIBP monitoring cm10 applied. chamber walker on. 12:13 Patient has correct armband on for positive identification. Placed in gown. Bed in low cm10 position. Call light in reach. Side rails up X2. Provided Education on: ER process and procedures. Door closed. Noise minimized. 12:13 Basic Metabolic Panel Sent. cm10 12:13 CBC with Diff Sent. cm10 12:13 Magnesium Sent. cm10 12:13 Troponin HS Sent. cm10 12:13 Maintain EMS IV. Dressing intact. Good blood return noted. Site clean \T\ dry. Gauge \T\ cm 10 site: 18G right AC. IV is patent, is intact, with good blood return. O2 via Room air. 13:05 Patient requests pain medication. cm10 13:31 XRAY Chest (1 view) In Process Unspecified. EDMS 13:58 Troponin High Sensitivity Sent. cm10 14:36 Antioen León MD is Hospitalizing Provider. ms3 18:54 No provider procedures requiring assistance completed. Patient admitted, IV remains in cm10 place. 22:43 Nikki Romero, DAY is Primary Nurse. tm6 Administered Medications: 13:35 Drug: morphine IVP or IV 4 mg IVP once over 4 mins Route: IVP; Infused Over: 4 mins; cm10 Site: right antecubital; 14:30 Follow up: Response: No adverse reaction cm10 15:48 Drug: Famotidine IVP 20 mg IVP once; dilute with 10 mL 0.9% NaCl; give over 2 minutes cm10 Route: IVP; Site: right antecubital; 17:00 Follow up: Response: No adverse reaction cm10 Medication: 12:08 VIS not applicable for this client. cm10 Outcome: 14:37 Decision to Hospitalize by Provider. ms3 18:54 Admitted to ER Hold. Please see [facility] for further documentation. cm10 18:54 Condition: good 18:54 Instructed on the need for admit, 10/23 11:22 Patient left the ED. mb9 Signatures: Dispatcher [employer] EDMS Manpreet Ponce, DO LOMAS ms3 Yakelin Rice, RN RN mb9 Mirta Lutz RN RN cm10 Nikki Romero RN RN tm6
--- NOTE | 2023-10-23 14:38 | EDPHYS ---
Physician Documentation [facility] [place] Name: Sukh York Age: 63 yrs Sex: Female : 1960 Arrival Date: 10/23/2023 Time: 11:45 Bed 19 Private MD: ED Physician Manpreet Ponce HPI: 10/22 12:13 This 63 yrs old Female presents to ER via EMS with complaints of Chest Pain. ms3 12:13 63-year-old female with past medical history of aneurysm, arthritis, CHF, COPD, ms3 diabetes, hypertension presents to the emergency department via [facility] for chest pain that began while at her physician's office. Patient states she was in the physician's office developed nausea, vomiting, and left-sided chest pain. EMS notes patient's blood pressure 120s over 70s, heart rate 90, monitor showing ventricular paced rhythm. Blood glucose level was 240. Aspirin 324 mg and 50 mcg of fentanyl were given. Patient notes she was recently discharged Friday from [place] after an admission for pneumonia. She notes she has been constipated and is taking a medication to help with bowel movements that caused her to have nausea and vomiting yesterday. Patient thinks this could have caused her symptoms today.. Historical: - Allergies: 12:06 PENICILLINS; cm10 - PMHx: 12:06 Aneurysm; Arthritis; CHF; COPD; Diabetes - NIDDM; Hypertension; cm10 - PSHx: 12:06 back; defibrillator; cm10 - Immunization history:: Adult Immunizations up to date. - Infectious Disease History:: Denies. - Social history:: Smoking status: Patient denies any tobacco usage or history of. ROS: 12:13 Constitutional: Negative for fever, and chills. Neck: Negative for injury, pain, and ms3 swelling, Respiratory: Negative for shortness of breath, cough, wheezing, and pleuritic chest pain, MS/Extremity: Negative for injury and deformity, 12:13 Cardiovascular: Positive for chest pain, 12:13 Abdomen/GI: Positive for nausea and vomiting, Exam: 12:13 Constitutional: This is a well developed, well nourished patient who is awake, alert, ms3 and in no acute distress. Head/Face: Normocephalic, atraumatic. Neck: Trachea midline, no cervical lymphadenopathy. Supple, full range of motion without nuchal rigidity, or vertebral point tenderness. No Meningismus. Chest/axilla: Normal chest wall appearance and motion. Nontender with no deformity. Cardiovascular: Regular rate and rhythm with a normal S1 and S2. No gallops, murmurs, or rubs. Normal PMI, no JVD. No pulse deficits. Respiratory: Lungs have equal breath sounds bilaterally, clear to auscultation and percussion. No rales, rhonchi or wheezes noted. No increased work of breathing, no retractions or nasal flaring. Abdomen/GI: Soft, non-tender, with normal bowel sounds. No distension or tympany. No guarding or rebound. No evidence of tenderness throughout. Skin: Warm, dry with normal turgor. Normal color with no rashes, no lesions, and no evidence of cellulitis. 12:13 ECG was reviewed by the Attending Physician. Vital Signs: 12:03 BP 126 / 93; Pulse 96; Resp 18; Temp 98.4; Pulse Ox 97% on R/A; Weight 93.44 kg; Height cm10 5 ft. 2 in. ; Pain 10/10; 12:30 BP 115 / 71; Pulse 80; Resp 18; Pulse Ox 96% on R/A; cm10 13:30 BP 97 / 73; Pulse 77; Resp 18; Pulse Ox 100% on R/A; cm10 13:50 BP 112 / 71; Pulse 80; Resp 16; Pulse Ox 98% on R/A; cm10 14:30 BP 113 / 63; Pulse 73; Resp 18; Pulse Ox 99% on R/A; cm10 15:00 BP 107 / 70; Pulse 72; Resp 16; Pulse Ox 99% on R/A; cm10 15:30 BP 114 / 75; Pulse 75; Resp 19; Pulse Ox 97% on R/A; cm10 16:00 BP 118 / 77; Pulse 77; Resp 18; Pulse Ox 98% on R/A; cm10 16:30 BP 110 / 63; Pulse 72; Resp 18; Pulse Ox 100% on R/A; cm10 17:00 BP 114 / 87; Pulse 72; Resp 18; Pulse Ox 96% ; cm10 12:03 Body Mass Index 37.68 (93.44 kg, 157.48 cm) cm10 12:03 Pain Scale: Adult cm10 MDM: 11:58 Patient medically screened. ms3 12:13 Differential diagnosis: abnormal EKG, acute myocardial infarction, coronary artery ms3 disease Adverse reaction of medication. 14:37 HEART Score: History: Moderately Suspicious (1), ECG: Non specific repolarization ms3 disturbance / LBTB / PM (1), Age: > 45 and < 65 years (1), Risk Factors: > or = 3 Risk factors for atherosclerotic disease (2), [Hypercholesterolemia] [Hypertension] [DM] Troponin: < or = 1 x Normal Limit (0), Total Score = 5. The patient was not given aspirin in the Emergency Department. Administered by EMS. Data reviewed: vital signs, nurses notes, lab test result(s), EKG, radiologic studies, and as a result, I will admit patient. Consideration of Admission/Observation Patient was admitted/placed on observation. Management of patient was discussed with the following: Hospitalist: Dr León. I considered the following discharge prescriptions or medication management in the emergency department Medications were administered in the Emergency Department. See MAR. Independent interpretation of the following test(s) in the Emergency Department EKG: See my EKG interpretation above. Historians other than the Patient: EMS: [facility]. Counseling: I had a detailed discussion with the patient and/or guardian regarding the historical points, exam findings, and any diagnostic results supporting the discharge/admit diagnosis, lab results, radiology results, the need for further work-up and treatment in the hospital. ED course: Discussed observation with patient. Patient understands and agrees with plan. All questions were answered.. 10/22 11:59 Order name: Basic Metabolic Panel; Complete Time: 13:21 ms3 10/22 11:59 Order name: CBC with Diff; Complete Time: 13:21 ms3 10/22 11:59 Order name: Magnesium; Complete Time: 13:21 ms3 10/22 11:59 Order name: Troponin HS; Complete Time: 13:21 ms3 10/22 13:02 Order name: CBC Smear Scan; Complete Time: 13:21 EDMS 10/22 13:41 Order name: Troponin High Sensitivity; Complete Time: 14:33 ms3 10/22 15:21 Order name: Basic Metabolic Panel EDMS 10/22 15:21 Order name: Basic Metabolic Panel EDMS 10/22 15:21 Order name: Basic Metabolic Panel EDMS 10/22 15:21 Order name: Basic Metabolic Panel EDMS 10/22 15:21 Order name: CBC with Automated Diff EDMS / 15:21 Order name: CBC with Automated Diff EDMS 10/22 15:21 Order name: CBC with Automated Diff EDMS / 15:21 Order name: CBC with Automated Diff EDMS / 15:21 Order name: Troponin High Sensitivity EDMS 10/22 15:21 Order name: Troponin High Sensitivity EDMS 10/22 15:21 Order name: Troponin High Sensitivity EDMS 10/22 19:48 Order name: Glucose, Ancillary Testing EDMS 10/22 21:35 Order name: Glucose, Ancillary Testing EDMS / 01:25 Order name: Troponin High Sensitivity EDMS / 05:29 Order name: Troponin High Sensitivity EDMS / 08:37 Order name: Glucose, Ancillary Testing EDMS 10/22 11:59 Order name: XRAY Chest (1 view); Complete Time: 14:39 ms3 10/22 11:59 Order name: EKG; Complete Time: 11:59 ms3 10/22 11:59 Order name: Cardiac monitoring; Complete Time: 12:03 ms3 10/22 11:59 Order name: EKG - Nurse/Tech; Complete Time: 12:03 ms3 10/22 11:59 Order name: IV Saline Lock; Complete Time: 12:03 ms3 10/22 11:59 Order name: Labs collected and sent; Complete Time: 12:13 ms3 10/22 11:59 Order name: O2 Per Protocol; Complete Time: 12:03 ms3 10/22 11:59 Order name: O2 Sat Monitoring; Complete Time: 12:03 ms3 EC:13 Rate is 89 beats/min. Rhythm is regular. Left axis deviation noted. Clinical ms3 impression: Ventricular paced rhythm. Administered Medications: 13:35 Drug: morphine IVP or IV 4 mg IVP once over 4 mins Route: IVP; Infused Over: 4 mins; cm10 Site: right antecubital; 14:30 Follow up: Response: No adverse reaction cm10 15:48 Drug: Famotidine IVP 20 mg IVP once; dilute with 10 mL 0.9% NaCl; give over 2 minutes cm10 Route: IVP; Site: right antecubital; 17:00 Follow up: Response: No adverse reaction cm10 Disposition Summary: 10/23/23 14:37 Hospitalization Ordered Notes: Hospitalization Status: Observation ms3 Provider: Antione León ms3 Condition: Stable ms3 Problem: new ms3 Symptoms: are unchanged ms3 Bed/Room Type: Standard ms3 Location: Telemetry/MedSurg (Inpatient)(10/24/23 10:32) eb Room Assignment: 220(10/24/23 10:32) eb Diagnosis - Chest pain, unspecified ms3 - Nausea with vomiting, unspecified ms3 Forms: - Medication Reconciliation Form ms3 - SBAR form ms3 - Leadership Thank You Letter ms3 Signatures: Dispatcher [employer] EDMS Jay Bhatti FNP-Yahaira [id number] Milagros Hansen RN RN cg Genaro Kelley RN RN jl7 Jacqui Meehan Marcus, DO DO ms3 Mirta Lutz RN RN cm10 [facility] Corrections: (The following items were deleted from the chart) 11:59 11:59 BASIC METABOLIC PANEL+C.LAB.BRZ ordered. EDMS EDMS 11:59 11:59 CBC+H.LAB.BRZ ordered. EDMS EDMS 11:59 11:59 MAGNESIUM+C.LAB.BRZ ordered. EDMS EDMS 11:59 11:59 Troponin High Sensitivity+C.LAB.BRZ ordered. EDMS EDMS 16:34 14:37 Telemetry/MedSurg (observation) ms3 jl7 16:34 14:37 ms3 jl7 22:51 16:34 [facility] ER HOLD jl7 kmf 22:51 16:34 ERHOLD- jl7 kmf 23:00 22:51 Telemetry/MedSurg (observation) kmf cg 23:00 22:51 215 kmf cg 10/23 10:32 10/22 23:00 [facility] ER HOLD cg eb 10/23 10:32 10/22 23:00 ERHOLD- cg eb
--- NOTE | 2023-10-23 14:38 | RAD REPORT ---
EXAM DESCRIPTION: Rebecca Single View10/23/2023 1:29 pm CLINICAL HISTORY: CHEST PAIN COMPARISON: No comparisons TECHNIQUE: Portable AP view of the chest. FINDINGS: Left chest wall pacer/ AICD with unchanged least positioning, battery pack obscures evalua tion. The lungs show mildly progressive perihilar and basal streaky opacities. No pneumothorax or ef fusion. The cardiomediastinal contours are unremarkable. IMPRESSION: Findings suggesting reactive airway changes or viral infection. Pacer/AICD obscures a po rtion of the long on the left.
[2023-10-23] MEDS ORDERED: MECLIZINE HCL 12.5 MG TAB PO PRN (15:14)
[2023-10-23] MEDS ORDERED: ONDANSETRON 4 MG/2 ML VIAL IV PRN (15:14)
[2023-10-23] MEDS ORDERED: MORPHINE 2 MG/ML SYR IV PRN (15:14)
[2023-10-23] MEDS ORDERED: FAMOTIDINE 20 MG/2 ML VIAL IV ONE (15:42)
--- NOTE | 2023-10-23 16:41 | P.HP ---
Certification for Inpatient Patient admitted to: Observation With expected LOS: <2 Midnights Patient will require the following post-hospital care: None Practitioner: I am a practitioner with admitting privileges, knowledge of patient current condition, hospital course, and medical plan of care. Services: Services provided to patient in accordance with Admission requirements found in Title 42 Section 412.3 of the Code of Federal Regulations Patient History Date of Service: 10/23/23 Reason for admission: Chest pain History of Present Illness: 63-year-old female with history of chronic systolic congestive heart failure, [id number]-ngjasxfoc diabetes, COPD, hypertension, paroxysmal atrial fibrillation, BPPV presents to the emergency department with chief complaint of chest pain. She was recently admitted to [facility] on 10/12 and discharged on 10/18 for pneumonia, CHF exacerbation. She was discharged on antibiotics cefdinir and doxycycline which she is still taking as well as prednisone. She was at a follow-up appointment with Dr. Su when she developed onset of pressure-like chest pain radiating to her left arm with associated shortness of breath that was severe in nature. She was brought to the emergency department for evaluation. Her labs were significant for initial high-sensitivity troponin of 18.6, repeat 2 hours later 43.4 glucose 319 creatinine 1.2 sodium 134 white blood cell count 13.8, EKG without STEMI criteria. ED provider wishes to admit patient under observation for ACS rule out Allergies Penicillins Allergy (Mild, Verified 12/28/21 08:40) Convulsions Home Medications: Metformin HCl 500 mg PO BID 12/11/17 Potassium Oral Tab [Klor-Con 10 mEq Tab*] 40 meq PO BID 12/11/17 Bumetanide [Bumex*] 2 mg PO DAILY 12/28/21 Empagliflozin [Jardiance] 10 mg PO DAILY 12/28/21 Spironolactone [Aldactone*] 25 mg PO DAILY 12/28/21 Amiodarone HCl [Cordarone*] 200 mg PO DAILY 07/22/23 Apixaban [Eliquis *] 5 mg PO BID 07/22/23 Albuterol Sulfate [Proair Digihaler] 1 puff IH Q4HR 08/19/23 Aspirin [Macario Chewable Aspirin] 81 mg PO DAILY 08/19/23 Meclizine HCl 25 mg PO TID 08/19/23 methocarbamoL [Methocarbamol] 750 mg PO Q6HR 08/19/23 - Past Medical/Surgical History Diabetic: No -: HTN -: TV-gjv-kfbqhuh-dependent -: CHF -systolic -: AICD placement -: DEE DEE -: Obesity -: COPD -: Paroxysmal A-fib -: AICD placement 2014 -: cholecystectomy -: vein surgery Psychosocial/ Personal History: Lives at home with family - Social History Alcohol use: No CD- Drugs: No Caffeine use: Yes Place of Residence: Home Review of Systems 10-point ROS is otherwise unremarkable Respiratory: Shortness of Breath Cardiovascular: Chest Pain Physical Examination - Physical Exam General: Alert, In no apparent distress, Oriented x3 HEENT: Atraumatic, PERRLA, EOMI Neck: Supple, 2+ carotid pulse no bruit, No LAD Respiratory: Normal air movement, Diminished Cardiovascular: Regular rate/rhythm, Normal S1 S2 Gastrointestinal: Normal bowel sounds Musculoskeletal: No tenderness Integumentary: No rashes Neurological: Normal speech, Normal strength at 5/5 x4 extr, Normal tone - Studies Laboratory Data (last 24 hrs) 10/23/23 10/23/23 12:10 12:10 WBC 13.80 H Hgb 13.9 Hct 43.3 Plt Count 245 Sodium 134 L Potassium 4.0 BUN 45 H Creatinine 1.21 H Glucose 319 H Magnesium 2.3 Assessment and Plan - Plan Assessment: Chest pain rule out ACS Chronic systolic congestive heart failure with AICD in place History of paroxysmal atrial fibrillation on chronic evaluation Diabetes mellitus type [id number] with hyperglycemia hypertension Recent pneumonia/hospitalization-still on oral antibiotics Chronic BPPV Plan: Chest pain rule out ACS Trend troponins, monitor telemetry Cardiology consult in place Last heart catheterization 2014, has had annual stress tests since then Symptoms have improved since hospital arrival Will attempt to interrogate pacemaker/defibrillator Chronic systolic congestive heart failure with AICD in place Resume home medications once verified History of paroxysmal atrial fibrillation on chronic evaluation Therapeutic Lovenox until evaluated by cardiology Resume Eliquis when appropriate Diabetes mellitus type [id number]-vhihiob-ufgvnnfsq with hyperglycemia hypertension ACHS Accu-Chek, sliding scale insulin Recent pneumonia/hospitalization-still on oral antibiotics Continue oral antibiotics cefdinir/doxycycline Chronic BPPV As needed meclizine DVT PPX: Therapeutic Lovenox/resume Eliquis once evaluated by cardiology Code status: Full Discharge Plan: Home Plan to discharge in: 24 Hours - Advance Directives Does patient have a Living Will: No Does patient have a Durable POA for Healthcare: No - Code Status/Comfort Care Code Status Assessed: Yes (Full code) Critical Care: No Time Spent Managing Pts Care (In Minutes): 70
[2023-10-23] MEDS ORDERED: INSULIN REGULAR (HUMAN) 100 UNIT/ML ONE ×2 (19:38→21:28)
[2023-10-23] MEDS: INSULIN REGULAR (HUMAN) 100 UNIT/ML SQ SCH (19:40)
[2023-10-23] MEDS ORDERED: ENOXAPARIN 100 MG/ML SYR SQ ONE (20:46)
[2023-10-23] MEDS ORDERED: PANTOPRAZOLE 40 MG INJ ONE (20:46)
[2023-10-23] MEDS ORDERED: DOXYCYCLINE 100 MG CAP PO ONE (20:47)
[2023-10-23] MEDS ORDERED: CEFDINIR 300 MG CAP PO ONE (20:47)
[2023-10-23] MEDS: PANTOPRAZOLE 40 MG INJ IVP SCH (20:56)
[2023-10-23] MEDS: BUMETANIDE 1 MG TABLET PO SCH (20:56)
[2023-10-23] MEDS: CEFDINIR 300 MG CAP PO SCH (20:56)
[2023-10-23] MEDS: ENOXAPARIN 100 MG/ML SYR SQ SCH (20:56)
[2023-10-23] MEDS: DOXYCYCLINE 100 MG CAP PO SCH (20:57)
[2023-10-23] MEDS: CLOPIDOGREL 75 MG TABLET PO ONE (22:54)
[2023-10-23] MEDS: NITROGLYCERIN 0.2 MG/HR (5 MG) PATCH TD SCH (22:55)
--- NOTE | 2023-10-23 23:14 | P.PN ---
Date of Service: 10/23/23 Called for patient with elevated troponin of 11,000, patient admitted earlier for chest pain, past medical history of AICD, initial troponin was 16 then 48 with recent worsening to over 11,000. On evaluation. Patient denies any chest pain. She states she has been chest pain-free since given Maalox at the time of admission 6 hours ago. She states her chest pain has initially started after he felt like her pacemaker was about to shock her. She denies any actual shock at this time unlike her previous pacemakers. She denies any shortness of breath or dizziness since then. Repeat EKG shows paced rhythm with normal ST segment changes, EKG unchanged from earlier EKG 6 hours ago except for rates down to 68 from 89 earlier. Cardiology has been consulted. Will go ahead and place patient on Plavix/continue aspirin/start Nitropatch despite absence of chest pain now. Continue Lovenox, follow repeat cardiac enzymes every 6 for 2 more sets. No urgency for further intervention at this time
[2023-10-23] MEDS ORDERED: NITROGLYCERIN 1 GM PKT TD ONE (23:25)
[2023-10-23] MEDS ORDERED: CLOPIDOGREL 75 MG TABLET ONE (23:25)
[2023-10-24 02:03] VITALS: BMI 37.5
[2023-10-24] MEDS ORDERED: MORPHINE 2 MG/ML SYR ONE (04:30)
[2023-10-24] MEDS ORDERED: ONDANSETRON 4 MG/2 ML VIAL ONE (04:30)
[2023-10-24] MEDS ORDERED: MECLIZINE HCL 12.5 MG TAB ONE ×2 (04:30→04:32)
[2023-10-24 05:11] LABS: Absolute Eosinophils 0.1 K/uL (0-0.5); Absolute Lymphocytes (CBC) 2.8 K/uL (0.7-4.9); Absolute Monocytes 0.6 K/uL (0.1-1.3); Absolute Neutrophil 7.1 K/uL (1.8-8.0); Basophils % 0.2 % (0-1.3); Eosinophils % 1.1 % (0-4.4); Hematocrit 39.5 % (36.0-45.0); Hemoglobin 13.1 g/dL (12.0-15.0); Lymphocytes % 26.3 % (15.3-44.8); MCH 27.8 pg (27.0-35.0); MCHC 33.1 g/dL (32.0-36.0); MPV 10.5 fL (7.6-11.3); Monocytes % 6.1 % (3.3-12.3); Neutrophils % 66.3 % (41.7-73.7); Nucleated Red Blood Cells % 0.1 % (0-0); Platelets 210 thou/uL (152-406); Red Cell Distribution Width 16.4 % (12.1-15.2)
[2023-10-24 05:28] LABS: Troponin High Sensitivity 13105.7 pg/mL (<58.9)
[2023-10-24] MEDS: POTASSIUM CL SA 10 MEQ TAB PO ONE (05:40)
[2023-10-24] MEDS ORDERED: POTASSIUM CL SA 10 MEQ TAB PO ONE (05:45)
--- NOTE | 2023-10-24 08:45 | P.CNS ---
Date of Consult: 10/24/23 Chief Complaint: Chest pain History of Present Illness: Patient with PMH of atrial fibrillation/VT s/p PM/ICD placement presented with chest pain that atarted yesterday, left sided pressure in nature, radiating to her epigastric area, denies any other cardiac symptoms. Allergies Penicillins Allergy (Mild, Verified 12/28/21 08:40) Convulsions Home Medications: Metformin HCl 500 mg PO BID 12/11/17 Potassium Oral Tab [Klor-Con 10 mEq Tab*] 40 meq PO BID 12/11/17 Bumetanide [Bumex*] 2 mg PO BID* 12/28/21 Empagliflozin [Jardiance] 10 mg PO DAILY 12/28/21 Spironolactone [Aldactone*] 12.5 mg PO BID 12/28/21 Amiodarone HCl [Cordarone*] 200 mg PO DAILY 07/22/23 Apixaban [Eliquis *] 5 mg PO BID 07/22/23 Aspirin [Macario Chewable Aspirin] 81 mg PO DAILY 08/19/23 Meclizine HCl 25 mg PO TID 08/19/23 Cefdinir [Cefdinir*] 300 mg PO BID 10/23/23 Doxycycline Hyclate 100 mg PO BID 10/23/23 Lubiprostone 8 mcg PO BID 10/23/23 - Past Medical/Surgical History Diabetic: No -: HTN -: IG-taw-bmteysh-dependent -: CHF -systolic -: AICD placement -: DEE DEE -: Obesity -: COPD -: Paroxysmal A-fib -: AICD placement 2014 -: cholecystectomy -: vein surgery Psychosocial/ Personal History: Lives at home with family - Social History Smoking Status: Former smoker Alcohol use: No CD- Drugs: No Caffeine use: Yes Place of Residence: Home Review of Systems 10-point ROS is otherwise unremarkable Physical Examination Temp Pulse Resp BP Pulse Ox 96.9 F 66 20 114/73 99 10/24/23 04:00 10/24/23 04:00 10/24/23 04:00 10/24/23 04:00 10/24/23 04:00 General: Alert, In no apparent distress HEENT: Atraumatic, PERRLA, Mucous membr. moist/pink, EOMI, Sclerae nonicteric Neck: Supple, 2+ carotid pulse no bruit, No LAD, Without JVD or thyroid abnormality Respiratory: Clear to auscultation bilaterally, Normal air movement Cardiovascular: Regular rate/rhythm, Normal S1 S2 Gastrointestinal: Normal bowel sounds, No tenderness Musculoskeletal: No tenderness Integumentary: No rashes Neurological: Normal gait, Normal speech, Normal tone, Normal affect Lymphatics: No axilla or inguinal lymphadenopathy Laboratory Data (last 24 hrs) 10/23/23 10/23/23 12:10 12:10 WBC 13.80 H Hgb 13.9 Hct 43.3 Plt Count 245 Sodium 134 L Potassium 4.0 BUN 45 H Creatinine 1.21 H Glucose 319 H Magnesium 2.3 - Problems (1) NSTEMI (non-ST elevated myocardial infarction) Current Visit: Yes Status: Acute Plan: Keep Patient NPO, plan of coronary angiogram today Hold Eliquis ASA 81 mg daily Heparin drip or full dose lovenox Lipitor 40 mg daily Get Echo (2) CHF (congestive heart failure) Current Visit: No Status: Chronic Plan: patient looks euvolemic on exam continue Bumex Continue Spirnolactone get Echo Qualifiers: Heart failure type: unspecified Heart failure chronicity: chronic Qualified Code(s): I50.9 - Heart failure, unspecified (3) HTN (hypertension) Onset Date: 12/12/17 Current Visit: No Status: Chronic Plan: as above. Qualifiers: Hypertension type: essential hypertension Qualified Code(s): I10 - Essential (primary) hypertension (4) Atrial fibrillation Current Visit: Yes Status: Acute Plan: Continue Amiodarone. Hold Eliquis.
[2023-10-24] MEDS: AMIODARONE HCL 200 MG TAB PO SCH (09:00)
[2023-10-24] MEDS: SPIRONOLACTONE 25 MG TABLET PO SCH (09:00)
[2023-10-24] MEDS: ASPIRIN EC 81 MG TAB PO SCH (09:00)
[2023-10-24] MEDS ORDERED: PANTOPRAZOLE 40 MG INJ ONE (09:11)
[2023-10-24] MEDS ORDERED: DOXYCYCLINE 100 MG CAP PO ONE (09:12)
[2023-10-24] MEDS ORDERED: CEFDINIR 300 MG CAP PO ONE (09:12)
[2023-10-24] MEDS ORDERED: AMIODARONE HCL 200 MG TAB ONE (09:12)
[2023-10-24] MEDS ORDERED: ASPIRIN 81 MG CHEWABLE TABLET ONE (09:12)
[2023-10-24] MEDS ORDERED: HEPA 1000U/500MLS 2,000 UNIT/1,000 ML BAG IV ONE (11:07)
[2023-10-24] MEDS ORDERED: VERAPAMIL HCL 10 MG/4 ML VIAL IV ONE (11:07)
[2023-10-24] MEDS ORDERED: FENTANYL CITR 100 MCG/2 ML ONE (11:07)
[2023-10-24] MEDS ORDERED: LIDOCAINE 1% 20 ML MDV ONE (11:07)
[2023-10-24] MEDS ORDERED: HEPARIN 5000 UNIT/ML 1 ML VIAL ONE (11:08)
[2023-10-24] MEDS ORDERED: TICAGRELOR 90 MG TABLET PO ONE (11:08)
[2023-10-24] MEDS ORDERED: MIDAZOLAM HCL 2 MG/2 ML INJ ONE (11:08)
[2023-10-24] MEDS ORDERED: ATROPINE SULF 1 MG/10 ML SYR IV ONE (11:08)
[2023-10-24] MEDS ORDERED: HEPARIN 10,000 UNIT/10 ML VIAL IV ONE (11:09)
[2023-10-24] MEDS ORDERED: ASPIRIN 325 MG TAB ONE (11:09)
[2023-10-24] MEDS ORDERED: CLOPIDOGREL 75 MG TABLET ONE (11:09)
[2023-10-24] MEDS ORDERED: NA CHLORIDE 0.9% 500 ML ONE (11:10)
--- NOTE | 2023-10-24 14:40 | P.PN ---
Date of Service: 10/24/23 Subjective: Reports improvement in chest pain symptoms overnight Complains of constipation Troponins markedly elevated overnight ROS: 10 point ROS as noted above, otherwise negative Physical exam GEN: Alert, oriented, NAD HEENT: Normal conjunctiva, sclera anicteric CV: Regular rate and rhythm, no edema Pulm: Nonlabored respirations on room air ABD: Soft, nontender, nondistended MSK: No joint tenderness Integumentary: No rashes Neuro: Normal speech, normal affect Vitals reviewed Assessment: NSTEMI Constipation Chronic systolic congestive heart failure with AICD in place History of paroxysmal atrial fibrillation on chronic evaluation Diabetes mellitus type 5xyw-ngizurk-nuzqbwjfh with hyperglycemia hypertension Recent pneumonia/hospitalization-still on oral antibiotics Chronic BPPV Plan: NSTEMI Troponin significantly elevated overnight Plan for heart catheterization today-await results Last heart catheterization 2014, has had annual stress tests since then Constipation Will provide with MiraLAX after heart catheterization Continue as needed stool softener/laxative Chronic systolic congestive heart failure with AICD in place Home medications continued, appears euvolemic at this time History of paroxysmal atrial fibrillation on chronic evaluation Await results of heart catheterization Resume Eliquis when cleared by cardiology Continue therapeutic Lovenox for now Diabetes mellitus type 2vfp-nsglbbs-wgewhbcsr with hyperglycemia hypertension ACHS Accu-Chek, sliding scale insulin Recent pneumonia/hospitalization-still on oral antibiotics Continue oral antibiotics cefdinir/doxycycline Chronic BPPV As needed meclizine DVT PPX: Therapeutic Lovenox/resume Eliquis once evaluated by cardiology Code status: Full Discharge Plan: Home Plan to discharge in: 24 to 48 hours Time Spent Managing Pts Care (In Minutes): 35
[2023-10-24 15:07] VITALS: O2SAT 100
[2023-10-24] MEDS: POLYETHYL GLY 3350 17 GM/DOSE PO ONE (15:51)
[2023-10-24] MEDS: POLYETHYL GLY 3350 17 GM/DOSE PO PRN (16:00)
[2023-10-24] MEDS ORDERED: MORPHINE 4 MG/ML SYR IV PRN (17:31)
[2023-10-24] MEDS: SODIUM CHLORIDE 0.9% 10ML INJ IV PRN (22:12)
--- NOTE | 2023-10-24 22:50 | OP ---
Date of Procedure: 10/24/2023 Surgeon: Victor Hugo Thomas Procedures Performed: 1.Left heart catheterization. 2.Coronary angiogram. Indication For Procedure: Lsd-DC-tcppvbkvl CO. Complications: None. Sedation Time: 20 minutes with 1 of Versed and 50 of fentanyl. Estimated Blood Loss: Less than 50 cc. Access: Right radial, closed by TR band. Description Of Procedure: After risks, benefits, and alternatives were explained to patient, patient agreed to proceed with the procedure and signed informed consent. The patient was brought back to [facility] slab puller, prepped and draped in a sterile fashion. A time-out was performed. Sedation was admini stered. Right radial 6-Sudanese ultrasound-guided micropuncture technique was obtained. Jolon [address] was advanced over J-wire to the LV cavity. LVEDP was obtained. Pullback did not show any gradie nt. Same catheter was used for selective coronary angiogram of the left and right coronary systems. At the end of procedure, catheter was removed over a J-wire. Sheath was removed and access was clos ed with a TR band. Hemostasis was achieved. The patient was moved back to recovery in stable condit ion. Findings: 1.Left main: Normal. 2.LAD: Normal. 3.Left circ: Normal. 4.RCA: Normal. 5.LVEDP: 11 mmHg. Assessment And Plan: 1.Normal coronaries. 2.Normal filling pressures. 3.The plan will be to continue medical management. GA Voice ID: [id number] Report ID: [id number]
[2023-10-25 03:31] LABS: Absolute Eosinophils 0.1 K/uL (0-0.5); Absolute Lymphocytes (CBC) 2.7 K/uL (0.7-4.9); Absolute Monocytes 0.5 K/uL (0.1-1.3); Absolute Neutrophil 4.8 K/uL (1.8-8.0); Basophils % 0.5 % (0-1.3); Eosinophils % 0.9 % (0-4.4); Hematocrit 37.4 % (36.0-45.0); Hemoglobin 12.2 g/dL (12.0-15.0); Lymphocytes % 33.7 % (15.3-44.8); MCH 27.6 pg (27.0-35.0); MCHC 32.8 g/dL (32.0-36.0); MCV 84.1 fL (80-100); MPV 10.6 fL (7.6-11.3); Monocytes % 5.6 % (3.3-12.3); Neutrophils % 59.3 % (41.7-73.7); Platelets 174 thou/uL (152-406); RBC Red Blood Cell Count 4.44 M/uL (3.86-4.86); Red Cell Distribution Width 16.3 % (12.1-15.2)
[2023-10-25 03:51] LABS: Anion Gap 7.4 mEq/L (5.0-15.0); Potassium 3.4 mEq/L (3.5-5.1)
[2023-10-25] MEDS: POTASSIUM CL SA 10 MEQ TAB PO ONE ×2 (05:17→05:18)
[2023-10-25] MEDS: NA CHLORIDE 0.9% 500 ML IV ONE (09:50)
--- NOTE | 2023-10-25 11:10 | P.PN ---
Subjective Date of Service: 10/25/23 Chief Complaint: Chest pain Subjective: Doing well Review of Systems 10-point ROS is otherwise unremarkable Physical Examination - Vital Signs Temperature: 97.8 F Blood Pressure: 98/54 Pulse: 69 Respirations: 16 Pulse Ox (%): 97 - Physical Exam General: Alert, In no apparent distress HEENT: Atraumatic, PERRLA, EOMI Neck: Supple, JVD not distended Respiratory: Clear to auscultation bilaterally, Normal air movement Cardiovascular: Regular rate/rhythm, Normal S1 S2 Gastrointestinal: Normal bowel sounds, No tenderness Musculoskeletal: No tenderness Integumentary: No rashes Neurological: Normal speech, Normal tone, Normal affect Lymphatics: No axilla or inguinal lymphadenopathy - Studies Medications List Reviewed: Yes Assessment And Plan - Current Problems (Diagnosis) (1) NSTEMI (non-ST elevated myocardial infarction) Current Visit: Yes Status: Acute Plan: although patient had significant rise in troponin but her coronary angiogram was completely normal, LV gram was not done due to worries about kidney function and contrast load, patient enzymes leak are wither secondary to viral myocarditis vs stress induced. Get Echo (2) CHF (congestive heart failure) Current Visit: No Status: Chronic Plan: patient looks euvolemic on exam, BP is soft, agree with gentle hydration for now Hold Bumex and Spirnolactone. get Echo Qualifiers: Heart failure type: unspecified Heart failure chronicity: chronic Qualified Code(s): I50.9 - Heart failure, unspecified (3) HTN (hypertension) Onset Date: 12/12/17 Current Visit: No Status: Chronic Plan: as above. Qualifiers: Hypertension type: essential hypertension Qualified Code(s): I10 - Essential (primary) hypertension (4) Atrial fibrillation Current Visit: Yes Status: Acute Plan: Patient is paced. Continue Amiodarone. continue Eliquis.
--- NOTE | 2023-10-25 11:12 | P.PN ---
Date of Service: 10/25/23 Subjective: No further chest pain had a BM today No new complaints ROS: 10 point ROS as noted above, otherwise negative Physical exam GEN: Alert, oriented, NAD HEENT: Normal conjunctiva, sclera anicteric CV: Regular rate and rhythm, no edema Pulm: Nonlabored respirations on room air ABD: Soft, nontender, nondistended MSK: No joint tenderness Integumentary: No rashes Neuro: Normal speech, normal affect Vitals reviewed Assessment: NSTEMI Constipation Chronic systolic congestive heart failure with AICD in place History of paroxysmal atrial fibrillation on chronic evaluation Diabetes mellitus type 8tpa-wwjbsys-sstdwifee with hyperglycemia hypertension Recent pneumonia/hospitalization-still on oral antibiotics Chronic BPPV Plan: NSTEMI LHC 10/23 normal coronaries and pressures No further chest pain AICD interrogated, no VT/VF/SVT since 09/16/23 monitor on tele, restart eliquis Constipation Will provide with MiraLAX after heart catheterization Continue as needed stool softener/laxative Had BM 10/24 Chronic systolic congestive heart failure with AICD in place Home medications continued, appears euvolemic at this time Maybe a little on the dry side, BP soft today Given IVF bolus 500cc History of paroxysmal atrial fibrillation on chronic evaluation doug Whitten resumed AICD in place Diabetes mellitus type 8btb-vkobgfx-fctpcdbyc with hyperglycemia hypertension ACHS Accu-Chek, sliding scale insulin Recent pneumonia/hospitalization-still on oral antibiotics Continue oral antibiotics cefdinir/doxycycline Chronic BPPV As needed meclizine DVT PPX: Eliquis continued Code status: Full Discharge Plan: Home Plan to discharge in: 24 to 48 hours Time Spent Managing Pts Care (In Minutes): 35
--- NOTE | 2023-10-25 11:44 | EKG ---
Test Date: 2023-10-23 Test Time: 22:57:34 Russian Teacher: KAELA MEASUREMENT RESULTS: Intervals: Rate: 68 AR: 148 QRSD: 202 QT: 512 QTc: 544 Bradford: P: 89 AR: 148 QRS: -23 T: 98 INTERPRETIVE STATEMENTS: Electronic ventricular pacemaker Compared to ECG 10/10/2023 01:20:26 Atrial-sensed ventricular-paced complex(es) or rhythm no longer present Electronically Signed On 10-25-23 11:43:41 CDT by Victor Hugo Thomas
--- NOTE | 2023-10-25 11:47 | EKG ---
Test Date: 2023-10-23 Test Time: 11:59:02 Statistician: BRENDON MEASUREMENT RESULTS: Intervals: Rate: 89 PA: 146 QRSD: 198 QT: 464 QTc: 564 Chandler: P: 102 PA: 146 QRS: 0 T: 102 INTERPRETIVE STATEMENTS: Atrial-sensed ventricular-paced rhythm Abnormal ECG Compared to ECG 10/10/2023 01:20:26 No significant changes Electronically Signed On 10-25-23 11:44:49 CDT by Victor Hugo Thomas
[2023-10-25 12:05] VITALS: TEMP 96.9
[2023-10-25] MEDS: NA CHLORIDE 0.9% 1,000 ML IV SCH (13:44)
[2023-10-25 15:51] VITALS: BP 100/58
--- NOTE | 2023-10-25 16:24 | P.DS ---
Admission Date: 10/24/23 Discharge Date: 10/25/23 Disposition: ROUTINE DISCHARGE Discharge Condition: FAIR Reason for Admission: Chest pain Consultations: Cardiology-Dr. Thomas Procedures: Left heart cath 10/23-normal coronaries and LVEDP Brief History of Present Illness: 63-year-old female with history of chronic systolic congestive heart failure, zut-buykoad-llurewtup diabetes, COPD, hypertension, paroxysmal atrial fibrillation, BPPV presents to the emergency department with chief complaint of chest pain. She was recently admitted to [facility] on 10/12 and discharged on 10/18 for pneumonia, CHF exacerbation. She was discharged on antibiotics cefdinir and doxycycline which she is still taking as well as prednisone. She was at a follow-up appointment with Dr. Su when she developed onset of pressure-like chest pain radiating to her left arm with associated shortness of breath that was severe in nature. She was brought to the emergency department for evaluation. Her labs were significant for initial high-sensitivity troponin of 18.6, repeat 2 hours later 43.4 glucose 319 creatinine 1.2 sodium 134 white blood cell count 13.8, EKG without STEMI criteria. ED provider wishes to admit patient under observation for ACS rule out Hospital Course: Assessment: NSTEMI Constipation Chronic systolic congestive heart failure with AICD in place History of paroxysmal atrial fibrillation on chronic evaluation Diabetes mellitus type 0opq-xbwqihv-hwgmfeuek with hyperglycemia hypertension Recent pneumonia/hospitalization-still on oral antibiotics Chronic BPPV Patient was admitted for episode of chest pain, overnight she developed significantly elevated troponins and underwent cardiac catheterization. Her heart catheterization showed normal coronaries and normal left ventricular end- diastolic pressure. Her AICD was also interrogated which showed no episodes of VT/VF/SVT. She was monitored on telemetry and maintained paced rhythm, she did not experience any further episodes of chest pain or shortness of breath. Today she was able to ambulate around the entire nurses station without assistance or need for oxygen denying any dizziness, lightheadedness, chest pain or shortness of breath. Patient is requesting to be discharged at this time. Recommend further evaluation with cardiology as an outpatient. Of note patient's blood pressure was soft this morning, her Bumex was held and we recommend holding both the Bumex and spironolactone for the next 3 days. After this resume these medications and please follow-up closely with cardiologyDr. Thomas for echocardiogram next week. Continue home medications as prescribed including Eliquis Hold Bumex, spironolactone for the next 3 days, after that resume as prescribed Follow-up with your primary care doctor and cardiology in the next 1 to 2 weeks Increase your fiber intake and take MiraLAX as needed for constipation Vital Signs/Physical Exam: Temp Pulse Resp BP Pulse Ox 96.9 F 67 16 100/58 L 96 10/25/23 15:42 10/25/23 15:42 10/25/23 15:42 10/25/23 15:42 10/25/23 15:42 General: Alert, In no apparent distress, Oriented x3 HEENT: Atraumatic, PERRLA Neck: Supple, JVD not distended Respiratory: Clear to auscultation bilaterally, Normal air movement Cardiovascular: Regular rate/rhythm, Normal S1 S2 Gastrointestinal: Normal bowel sounds Musculoskeletal: No tenderness Integumentary: No rashes Neurological: Normal speech, Normal tone Laboratory Data at Discharge: WBC 8.10 thou/uL (4.3-10.9) 10/25/23 03:14 Hgb 12.2 g/dL (12.0-15.0) 10/25/23 03:14 Hct 37.4 % (36.0-45.0) 10/25/23 03:14 Plt Count 174 thou/uL (152-406) 10/25/23 03:14 Sodium 136 mEq/L (136-145) 10/25/23 03:14 Potassium 3.4 mEq/L (3.5-5.1) L D 10/25/23 03:14 BUN 32 mg/dL (7-18) H 10/25/23 03:14 Creatinine 1.08 mg/dL (0.55-1.02) H 10/25/23 03:14 Glucose 134 mg/dL (74-106) H 10/25/23 03:14 Magnesium 2.3 mg/dL (1.6-2.4) 10/23/23 12:10 Home Medications: Metformin HCl 500 mg PO BID 12/11/17 Potassium Oral Tab [Klor-Con 10 mEq Tab*] 40 meq PO BID 12/11/17 Bumetanide [Bumex*] 1 mg PO BID* 12/28/21 Empagliflozin [Jardiance] 10 mg PO DAILY 12/28/21 Spironolactone [Aldactone*] 12.5 mg PO DAILY 12/28/21 Amiodarone HCl [Cordarone*] 200 mg PO DAILY 07/22/23 Apixaban [Eliquis *] 5 mg PO BID 07/22/23 Aspirin [Macario Chewable Aspirin] 81 mg PO DAILY 08/19/23 Meclizine HCl 25 mg PO TID 08/19/23 Cefdinir [Cefdinir*] 300 mg PO BID 10/23/23 Doxycycline Hyclate 100 mg PO BID 10/23/23 Physician Discharge Instructions: Bedside commode for home use ordered on 10/24/23 - pending approval: [facility] Patient Address: [address] [place] [address], [place] [address] Patient was admitted for episode of chest pain, overnight she developed significantly elevated troponins and underwent cardiac catheterization. Her heart catheterization showed normal coronaries and normal left ventricular end- diastolic pressure. Her AICD was also interrogated which showed no episodes of VT/VF/SVT. She was monitored on telemetry and maintained paced rhythm, she did not experience any further episodes of chest pain or shortness of breath. Today she was able to ambulate around the entire nurses station without assistance or need for oxygen denying any dizziness, lightheadedness, chest pain or shortness of breath. Patient is requesting to be discharged at this time. Recommend further evaluation with cardiology as an outpatient. Of note patient's blood pressure was soft this morning, her Bumex was held and we recommend holding both the Bumex and spironolactone for the next 3 days. After this resume these medications and please follow-up closely with cardiologyDrRenuka Thomas for echocardiogram next week. Continue home medications as prescribed including Eliquis Hold Bumex, spironolactone for the next 3 days, after that resume as prescribed Follow-up with your primary care doctor and cardiology in the next 1 to 2 weeks Increase your fiber intake and take MiraLAX as needed for constipation Diet: AHA Activity: Ad sergei Followup: Lucy Schaeffer NP [Primary Care Provider] - 1-2 Weeks Victor Hugo Thomas MD [ACTIVE - CAN ADMIT] - 1-2 Weeks Time spent managing pt's care (in minutes): 35
[2023-10-25] MEDS ORDERED: APIXABAN 5 MG TABLET PO SCH (21:00)
== END 2023-10-25 17:22 | disposition home or self-care (01) | DRG 280 ==
LOC: ER 11:45 → ERHOLD 15:14 → 2ND 10-24 10:57 → OBSVTOIN 10-24 12:04
PROVIDERS: ADMIT Hospitalist; ATTEND Hospitalist
PROC: 4A023N7 Measurement of Cardiac Sampling and Pressure, Left Heart, Percutaneous Approach (ICD-10-PCS; principal; 2023-10-24)
PROC: B2111ZZ Fluoroscopy of Multiple Coronary Arteries using Low Osmolar Contrast (ICD-10-PCS; 2023-10-24)
DX: I21.4 Non-ST elevation (NSTEMI) myocardial infarction (principal); J18.9 Pneumonia, unspecified organism; I50.22 Chronic systolic (congestive) heart failure; J44.0 Chronic obstructive pulmonary disease with (acute) lower respiratory infection; I11.0 Hypertensive heart disease with heart failure; I48.0 Paroxysmal atrial fibrillation; E11.65 Type 2 diabetes mellitus with hyperglycemia; K59.00 Constipation, unspecified; H81.10 Benign paroxysmal vertigo, unspecified ear; M19.90 Unspecified osteoarthritis, unspecified site; Z88.0 Allergy status to penicillin; Z79.82 Long term (current) use of aspirin; Z79.01 Long term (current) use of anticoagulants; Z79.84 Long term (current) use of oral hypoglycemic drugs; Z90.49 Acquired absence of other specified parts of digestive tract; Z79.899 Other long term (current) drug therapy; Z95.810 Presence of automatic (implantable) cardiac defibrillator; Z87.891 Personal history of nicotine dependence
CPT/HCPCS: 36415; 71045; 76937; 80048; 82947; 83735; 84484; 85025; 93005; 93458; 96374; 96375; 99152; 99153; 99285; A4216; C1893; C9113; G0378; J0461; J1644; J1650; J2001; J2250; J2270; J2405; J3010; J7030; J7040; J8597; Q9966

== ENCOUNTER 2023-11-12 13:04 | Observation (INO) | payer OTHER ==
--- NOTE | 2023-11-12 13:38 | RAD REPORT ---
EXAM DESCRIPTION: RAD - Chest Single View - 11/12/2023 1:26 pm CLINICAL HISTORY: Chest pain;Dyspnea COMPARISON: <Comparisons> FINDINGS: Lines: Left subclavian approach pacemaker/ICD. Lungs: No evidence of edema or pneumonia. Linear scarring at the left lung base. Pleural: No significant pleural effusions or pneumothorax. Cardiac: Mild cardiomegaly. Mediastinum: Within normal limits. Bones: No acute fractures. Other: None IMPRESSION: No acute cardiopulmonary disease.
[2023-11-12] MEDS ORDERED: ASPIRIN 81 MG CHEWABLE TABLET ONE (13:43)
[2023-11-12 13:55] LABS: Absolute Eosinophils 0.1 K/uL (0-0.5); Absolute Lymphocytes (CBC) 0.9 K/uL (0.7-4.9); Absolute Monocytes 0.3 K/uL (0.1-1.3); Absolute Neutrophil 3.4 K/uL (1.8-8.0); Basophils % 0.7 % (0-1.3); Eosinophils % 1.5 % (0-4.4); Hematocrit 38.4 % (36.0-45.0); Hemoglobin 12.1 g/dL (12.0-15.0); Lymphocytes % 19.3 % (15.3-44.8); MCHC 31.6 g/dL (32.0-36.0); MCV 85.4 fL (80-100); MPV 9.9 fL (7.6-11.3); Monocytes % 6.8 % (3.3-12.3); Neutrophils % 71.7 % (41.7-73.7); Platelets 191 thou/uL (152-406)
[2023-11-12 14:04] LABS: Anion Gap 10.9 mEq/L (5.0-15.0); Magnesium 2.3 mg/dL (1.6-2.4); Potassium 3.9 mEq/L (3.5-5.1); Troponin High Sensitivity 17.2 pg/mL (<58.9)
[2023-11-12 14:09] LABS: Protime INR 1.76
--- NOTE | 2023-11-12 14:49 | ER ---
Nurse's Notes [facility] [place] Name: Sukh York Age: 63 yrs Sex: Female : 1960 Arrival Date: 11/12/2023 Time: 13:04 Bed 17 Private MD: Diagnosis: Chest pain, unspecified;Unspecified combined systolic (congestive) and diastolic (congestive) heart failure Presentation: 11/11 13:08 Chief complaint: Patient states: Pt c/o increased SOB with exertion since yesterday tl4 that got worse today. Pt developed reproducible chest pressure approx 1 hour ago today. Pt has increased bowel movements today. Pt states these sxs feel like her previous AK on 10/23/23. Coronavirus screen: At this time, the client does not indicate any symptoms associated with coronavirus-19. Ebola Screen: No symptoms or risks identified at this time. Initial Sepsis Screen: Does the patient meet any 2 criteria? No. Patient's initial sepsis screen is negative. Does the patient have a suspected source of infection? No. Patient's initial sepsis screen is negative. Risk Assessment: Do you want to hurt yourself or someone else? Patient reports no desire to harm self or others. Onset of symptoms was November 11, 2023. 13:08 Method Of Arrival: Wheelchair tl4 13:08 Acuity: RADHA 2 tl4 Triage Assessment: 13:16 General: Appears uncomfortable, Behavior is calm, cooperative. Pain: Complains of pain tl4 in chest. EENT: No signs and/or symptoms were reported regarding the EENT system. Neuro: Level of Consciousness is awake, alert, obeys commands, Oriented to person, place, time, situation, Moves all extremities. Full function Denies dizziness. Cardiovascular: Reports chest pain. Respiratory: Reports shortness of breath pain with movement Onset: The symptoms/episode began/occurred yesterday, the patient has mild shortness of breath. GI: No signs and/or symptoms were reported involving the gastrointestinal system. : No signs and/or symptoms were reported regarding the genitourinary system. Derm: No signs and/or symptoms reported regarding the dermatologic system. Musculoskeletal: No signs and/or symptoms reported regarding the musculoskeletal system. Historical: - Allergies: 13:15 PENICILLINS; tl4 - PMHx: 13:15 Aneurysm; Arthritis; CHF; COPD; Diabetes - NIDDM; Hypertension; tl4 - PSHx: 13:15 back; defibrillator; tl4 - Immunization history:: Adult Immunizations unknown. - Infectious Disease History:: Denies. - Social history:: Smoking status: Patient denies any tobacco usage or history of. Patient/guardian denies using alcohol, street drugs. Screenin:39 Abuse screen: Denies threats or abuse. Denies injuries from another. Nutritional iw screening: No deficits noted. Tuberculosis screening: No symptoms or risk factors identified. 18:10 [facility] ED Fall Risk Assessment (Adult) History of falling in the last 3 months, db including since admission No falls in past 3 months (0 pts) Confusion or Disorientation No (0 pts) Intoxicated or Sedated No (0 pts) Impaired Gait No (0 pts) Mobility Assist Device Used No (0 pt) Altered Elimination No (0 pt) Score/Fall Risk Level 0 - 2 = Low Risk Oriented to surroundings, Maintained a safe environment. Assessment: 13:39 General: Appears in no apparent distress. Behavior is calm, cooperative. Neuro: Level iw of Consciousness is awake, alert, obeys commands, Oriented to person, place, time, situation, Moves all extremities. Full function. Cardiovascular: Reports chest pain, shortness of breath, Rhythm is. Respiratory: Airway is patent Respiratory effort is even, unlabored, GI: Abdomen is non-distended. Derm: Skin is intact, is healthy with good turgor. Musculoskeletal: Range of motion: intact in all extremities. 15:16 Reassessment: Patient appears in no apparent distress at this time. Patient and/or db family updated on plan of care and expected duration. Pain level reassessed. Patient is alert, oriented x 3, equal unlabored respirations, skin warm/dry/pink. CAME IN FOR SOB Patient states feeling better. Patient states symptoms have improved. 16:00 Reassessment: Patient appears in no apparent distress at this time. Patient and/or db family updated on plan of care and expected duration. Pain level reassessed. Patient is alert, oriented x 3, equal unlabored respirations, skin warm/dry/pink. 17:00 Reassessment: Patient appears in no apparent distress at this time. Patient and/or db family updated on plan of care and expected duration. Pain level reassessed. Patient is alert, oriented x 3, equal unlabored respirations, skin warm/dry/pink. 18:10 Reassessment: Patient appears in no apparent distress at this time. Patient and/or db family updated on plan of care and expected duration. Pain level reassessed. Patient is alert, oriented x 3, equal unlabored respirations, skin warm/dry/pink. Vital Signs: 13:08 BP 118 / 84; Pulse 95; Resp 18; Temp 96.9(TE); Pulse Ox 97% ; Weight 99.79 kg; Height 5 tl4 ft. 2 in. ; Pain 10/10; 15:07 BP 104 / 70; Pulse 77; Resp 18; Pulse Ox 98% on R/A; db 16:30 BP 99 / 63; Pulse 20; Resp 74; Pulse Ox 96% on R/A; db 17:30 BP 102 / 67; Pulse 71; Resp 20; Pulse Ox 97% on R/A; db 13:08 Body Mass Index 40.24 (99.79 kg, 157.48 cm) tl4 13:08 Pain Scale: Adult tl4 ED Course: 13:06 Patient arrived in ED. mg5 13:07 Amalia Brothers FNP-C is PHCP. kb 13:07 Cj León MD is Attending Physician. kb 13:15 Triage completed. tl4 13:17 Arm band placed on left wrist. tl4 13:28 XRAY Chest (1 view) In Process Unspecified. EDMS 13:38 Initial lab(s) drawn, by me, sent to lab. Inserted saline lock: 20 gauge in left iw antecubital area, using aseptic technique. Blood collected. 13:44 Shahnaz Leahy, RN is Primary Nurse. db 14:48 Aditya Brito is Hospitalizing Provider. kb 15:16 Patient has correct armband on for positive identification. Bed in low position. Call db light in reach. Side rails up X 1. Client placed on continuous cardiac and pulse oximetry monitoring. NIBP monitoring applied. rod straightener on. Pulse ox on. NIBP on. Pillow given. 18:10 Provided Education on: ADMISSION. db 18:10 No provider procedures requiring assistance completed. Patient admitted, IV remains in db place. Administered Medications: 13:50 Drug: Aspirin PO Chewable Tablet 324 mg PO once; 81 mg tablets x 4 Route: PO; iw 15:16 Follow up: Response: No adverse reaction db 15:11 Drug: Furosemide IVP 40 mg IVP once; give over 2 minutes Route: IVP; Site: left db antecubital; 15:57 Follow up: Response: No adverse reaction db Medication: 13:39 VIS not applicable for this client. iw Outcome: 14:48 Decision to Hospitalize by Provider. kb 18:10 Admitted to ER Hold. Please see [facility] for further documentation. db 18:10 Condition: stable 18:10 Instructed on the need for admit, 18:12 Patient left the ED. db Signatures: Dispatcher [employer] EDMS Amalia Brothers, ZAHIDA-C A R COLLECTIONS REP-Kerry Jean Baptiste RN RN iw Shahnaz Leahy RN RN db Carol Huizar mg5 Alex Leavitt RN RN tl4
--- NOTE | 2023-11-12 14:49 | EDPHYS ---
Physician Documentation [facility] [place] Name: Sukh York Age: 63 yrs Sex: Female : 1960 Arrival Date: 11/12/2023 Time: 13:04 Bed 17 Private MD: ED Physician Cj León HPI: 11/11 13:15 This 63 yrs old Female presents to ER via Wheelchair with complaints of kb Shortness Of Breath, Chest Pain. 13:15 Patient is a 63-year-old female with a past medical history of CHF, COPD, diabetes, kb hypertension and PR who presents for shortness of breath on exertion that started yesterday and substernal chest pain that started about 1 hour ago. Reports pain is worse on palpation.. Historical: - Allergies: 13:15 PENICILLINS; tl4 - PMHx: 13:15 Aneurysm; Arthritis; CHF; COPD; Diabetes - NIDDM; Hypertension; tl4 - PSHx: 13:15 back; defibrillator; tl4 - Immunization history:: Adult Immunizations unknown. - Infectious Disease History:: Denies. - Social history:: Smoking status: Patient denies any tobacco usage or history of. Patient/guardian denies using alcohol, street drugs. ROS: 13:35 Constitutional: As per HPI kb Exam: 13:35 Constitutional: This is a well developed, well nourished patient who is awake, alert, kb and in no acute distress. Head/Face: Normocephalic, atraumatic. ENT: Moist Mucous membranes Cardiovascular: Regular rate Respiratory: Respirations even and unlabored. No increased work of breathing. Talking in full sentences Abdomen/GI: Soft, non-tender. No distention Skin: Warm, dry with normal turgor. Normal color. Neuro: Awake and alert, GCS 15, oriented to person, place, time, and situation. Moves all extremities. Normal gait. 13:35 Chest/axilla: Palpation: tenderness, that is mild, of the anterior aspect of left upper chest and mid-sternal area, 13:35 ECG was reviewed by the Attending Physician. 13:36 Musculoskeletal/extremity: peripheral edema noted. kb Vital Signs: 13:08 BP 118 / 84; Pulse 95; Resp 18; Temp 96.9(TE); Pulse Ox 97% ; Weight 99.79 kg; Height 5 tl4 ft. 2 in. ; Pain 10/10; 15:07 BP 104 / 70; Pulse 77; Resp 18; Pulse Ox 98% on R/A; db 16:30 BP 99 / 63; Pulse 20; Resp 74; Pulse Ox 96% on R/A; db 17:30 BP 102 / 67; Pulse 71; Resp 20; Pulse Ox 97% on R/A; db 13:08 Body Mass Index 40.24 (99.79 kg, 157.48 cm) tl4 13:08 Pain Scale: Adult tl4 MDM: 13:07 Patient medically screened. kb 13:18 External Records Reviewed: Inpatient record: Patient had a left heart catheterization kb and coronary angiogram on 10/24/[address] Felder. Findings: 1. Left main: Normal. 2. LAD: Normal. 3. Left circ: Normal. 4. RCA: Normal. 5. LVEDP: 11 mmHg. Assessment And Plan: 1. Normal coronaries. 2. Normal filling pressures. 3. The plan will be to continue medical management. Care significantly affected by the following chronic conditions: Diabetes, Hypertension, Congestive Heart Failure, Chronic Obstructive Pulmonary Disease. 14:47 Differential diagnosis: CHF exacerbation, Chronic Obstructive Pulmonary Disease kb Myocardial Infarction. Data reviewed: vital signs, nurses notes. Consideration of Admission/Observation Patient was admitted/placed on observation. Escalation of care including admission/observation considered. Management of patient was discussed with the following: Hospitalist: Hospitalist team, Pt accepted for admission under Dr Brito. Counseling: I had a detailed discussion with the patient and/or guardian regarding the historical points, exam findings, and any diagnostic results supporting the discharge/admit diagnosis, lab results, radiology results, the need for further work-up and treatment in the hospital. 11/11 13:13 Order name: Basic Metabolic Panel; Complete Time: 14:07 kb 11/11 13:13 Order name: CBC with Diff; Complete Time: 14:01 kb 11/11 13:13 Order name: Magnesium; Complete Time: 14:07 kb 11/11 13:13 Order name: NT PRO-BNP; Complete Time: 14:07 kb 11/11 13:13 Order name: PT-INR; Complete Time: 14:13 kb 11/11 13:13 Order name: Troponin HS; Complete Time: 14:07 kb 11/11 15:42 Order name: Basic Metabolic Panel EDMS 11/11 15:42 Order name: Basic Metabolic Panel EDMS 11/11 15:42 Order name: CBC with Automated Diff EDMS 11/11 15:42 Order name: CBC with Automated Diff EDMS 11/11 15:42 Order name: Magnesium EDMS 11/11 15:42 Order name: Magnesium EDMS 11/11 15:42 Order name: Phosphorus EDMS 11/11 15:43 Order name: Phosphorus EDMS 11/11 15:43 Order name: Troponin High Sensitivity EDMS 11/11 15:43 Order name: Troponin High Sensitivity EDMS 11/11 15:43 Order name: Troponin High Sensitivity EDMS 11/11 13:13 Order name: XRAY Chest (1 view); Complete Time: 13:49 kb 11/11 13:13 Order name: Cardiac monitoring; Complete Time: 15:57 kb 11/11 13:13 Order name: EKG - Nurse/Tech; Complete Time: 13:40 kb 11/11 13:13 Order name: IV Saline Lock; Complete Time: 13:40 kb 11/11 13:13 Order name: Labs collected and sent; Complete Time: 13:40 kb 11/11 13:13 Order name: O2 Per Protocol; Complete Time: 13:40 kb 11/11 13:13 Order name: O2 Sat Monitoring; Complete Time: 13:40 kb EC:35 Rate is 88 beats/min. Rhythm is regular. QRS [place] is Normal. UT interval is normal at kb 134 msec. QRS interval is normal at 176 msec. QT interval is normal at 498 msec. Administered Medications: 13:50 Drug: Aspirin PO Chewable Tablet 324 mg PO once; 81 mg tablets x 4 Route: PO; iw 15:16 Follow up: Response: No adverse reaction db 15:11 Drug: Furosemide IVP 40 mg IVP once; give over 2 minutes Route: IVP; Site: left db antecubital; 15:57 Follow up: Response: No adverse reaction db Disposition: 19:16 Co-signature as Attending Physician, Cj León MD I reviewed the patient's care rn provided by the Advanced Practice Provider and agree with the diagnosis and treatment plan. Disposition Summary: 11/12/23 14:48 Hospitalization Ordered Notes: Hospitalization Status: Observation kb Provider: Aditya Brito Location: Telemetry/MedSurg (observation) kb Condition: Stable kb Problem: new kb Symptoms: are unchanged kb Bed/Room Type: Standard Room Assignment: 205(11/12/23 17:01) bd Diagnosis - Chest pain, unspecified kb - Unspecified combined systolic (congestive) and diastolic (congestive) heart failure kb Forms: - Medication Reconciliation Form kb - SBAR form kb - Leadership Thank You Letter kb Signatures: Dispatcher [employer] EDMS Amalia Brothers, DEPOT AGENT-C DEPOT AGENT-Ckmeredith RobertVerona joseph Kerry Araiza, Cj Liu RN, MD MD rn Benton, Danielle, RN DAY db Alex Leavitt, RN RN tl4 Corrections: (The following items were deleted from the chart) 13:37 13:35 Constitutional: This is a well developed, well nourished patient who is awake, kb alert, and in no acute distress. Head/Face: Normocephalic, atraumatic. ENT: Moist Mucous membranes Cardiovascular: Regular rate Respiratory: Respirations even and unlabored. No increased work of breathing. Talking in full sentences Abdomen/GI: Soft, non-tender. No distention Skin: Warm, dry with normal turgor. Normal color. MS/ Extremity: Pulses equal, no cyanosis. Neurovascular intact. Full, normal range of motion. Neuro: Awake and alert, GCS 15, oriented to person, place, time, and situation. Moves all extremities. Normal gait. kb 17:01 14:48 kb bd
--- NOTE | 2023-11-12 14:57 | P.HP ---
Certification for Inpatient Patient admitted to: Observation With expected LOS: <2 Midnights Patient will require the following post-hospital care: None Practitioner: I am a practitioner with admitting privileges, knowledge of patient current condition, hospital course, and medical plan of care. Services: Services provided to patient in accordance with Admission requirements found in Title 42 Section 412.3 of the Code of Federal Regulations Patient History Date of Service: 11/12/23 Reason for admission: chest pain, CHF exacerbation History of Present Illness: Sukh York is a 63 year old female with Pmhx aneurysm, arthritis, CHF, COPD, diabetesNIDDM, hypertension who presents to the ED with chief complaint of chest pain and shortness of breath. She reports becoming more short of breath while ambulating in the house, going up stairs at a baseball game, making breakfast. She reports a problem with her AICD, it was replaced in August and the previous model did not seem to cause as much shortness of breath and she was able to swim with it. She reports swimming and feeling electricity down her neck. She was recently admitted 10/23/23 with NSTEMI and a heart catheterization performed showing normal coronaries. Allergies Penicillins Allergy (Mild, Verified 12/28/21 08:40) Convulsions Home Medications: Metformin HCl 500 mg PO BID 12/11/17 Potassium Oral Tab [Klor-Con 10 mEq Tab*] 40 meq PO BID 12/11/17 Empagliflozin [Jardiance] 10 mg PO DAILY 12/28/21 Spironolactone [Aldactone*] 12.5 mg PO DAILY 12/28/21 Amiodarone HCl [Cordarone*] 200 mg PO DAILY 07/22/23 Apixaban [Eliquis *] 5 mg PO BID 07/22/23 Aspirin [Macario Chewable Aspirin] 81 mg PO DAILY 08/19/23 Meclizine HCl 25 mg PO TID 08/19/23 Cefdinir [Cefdinir*] 300 mg PO BID 10/23/23 Doxycycline Hyclate 100 mg PO BID 10/23/23 Furosemide [Lasix] 40 mg PO BID #60 tab 11/12/23 - Past Medical/Surgical History Diabetic: No -: HTN -: SR-roq-[id number]-dependent -: CHF -systolic -: AICD placement -: DEE DEE -: Obesity -: COPD -: Paroxysmal A-fib -: AICD placement 2015 -: cholecystectomy -: vein surgery Psychosocial/ Personal History: Lives at home with family - Social History Alcohol use: No CD- Drugs: No Caffeine use: Yes Review of Systems Respiratory: Cough, Shortness of Breath Cardiovascular: Chest Pain Physical Examination - Physical Exam General: Alert, In no apparent distress, Oriented x3 HEENT: Atraumatic, Normocephalic, PERRLA Neck: Supple, 2+ carotid pulse no bruit, JVD not distended Respiratory: Clear to auscultation bilaterally, Normal air movement Cardiovascular: Normal pulses, Regular rate/rhythm, Normal S1 S2 Capillary refill: <2 Seconds Gastrointestinal: Normal bowel sounds, Soft and benign, Distended (obese) Musculoskeletal: No clubbing Integumentary: No breakdown Neurological: Normal gait, Normal speech, Normal tone - Studies Laboratory Data (last 24 hrs) 11/12/23 11/12/23 11/12/23 13:35 13:35 13:35 WBC 4.70 Hgb 12.1 Hct 38.4 Plt Count 191 PT 19.0 H INR 1.76 Sodium 141 Potassium 3.9 BUN 21 H Creatinine 1.09 H Glucose 142 H Magnesium 2.3 Assessment and Plan - Plan Assessment and Plan Chest pain 2/2 CHF exacerbation Fluid volume overload associated with congestive heart failure History of A-fib AICD -Chest x-ray reports "No acute cardiopulmonary disease." -BNP 3965 -IV Lasix twice daily -Intake and output, daily weights -Cardiology consult for AICD problems -Continuous telemetry History of diabetes mellitusNIDDM -Accu-Chek with sliding scale insulin -Serum glucose 142 History of COPD History of hypertension -Continue home medication DVT PPx heparin Full code LOS 24 hours Discharge Plan: Home Plan to discharge in: 24 Hours - Advance Directives Does patient have a Living Will: No Does patient have a Durable POA for Healthcare: No
[2023-11-12] MEDS ORDERED: FUROSEMIDE 40 MG/4 ML VIAL ONE (15:06)
[2023-11-12] MEDS ORDERED: HEPARIN 5000 UNIT/ML 1 ML VIAL SQ SCH (17:00)
--- NOTE | 2023-11-12 18:44 | P.DS ---
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 She reported becoming more short of breath with exertion. She did mention her AICD was recently replaced. She was recently admitted 10/23/23 with NSTEMI and a heart catheterization performed showing normal coronaries. Chest x-ray done in the emergency department did not show any acute disease. Initial troponin negative. EKG showed paced rhythm. Patient was hospitalized for ACS rule out. Hospital Course: Patient placed on observation on the medical floor. She was treated with IV Lasix for CHF exacerbation. She reported resolution of her symptoms, she was ambulatory without shortness of breath. Troponin trended negative. Echocardiogram was done. Patient at this point requested for discharge given that his symptoms have resolved. She stated she has not been diuresing with Bumex. Bumex was replaced with oral Lasix on discharge. Vital Signs/Physical Exam: Temp Pulse Resp BP Pulse Ox 97.3 F 67 16 102/68 96 11/12/23 18:40 11/12/23 18:40 11/12/23 18:40 11/12/23 18:40 11/12/23 18:40 General: Alert, In no apparent distress, Oriented x3 HEENT: Mucous membr. moist/pink Neck: JVD not distended Respiratory: Clear to auscultation bilaterally, Normal air movement Cardiovascular: No edema, Regular rate/rhythm, Normal S1 S2 Gastrointestinal: Normal bowel sounds, Soft and benign, Non-distended Musculoskeletal: No swelling Integumentary: No rashes Neurological: Normal strength at 5/5 x4 extr Laboratory Data at Discharge: WBC 4.70 thou/uL (4.3-10.9) 11/12/23 13:35 Hgb 12.1 g/dL (12.0-15.0) 11/12/23 13:35 Hct 38.4 % (36.0-45.0) 11/12/23 13:35 Plt Count 191 thou/uL (152-406) 11/12/23 13:35 PT 19.0 SECONDS (9.4-12.5) H 11/12/23 13:35 INR 1.76 11/12/23 13:35 Sodium 141 mEq/L (136-145) 11/12/23 13:35 Potassium 3.9 mEq/L (3.5-5.1) 11/12/23 13:35 BUN 21 mg/dL (7-18) H 11/12/23 13:35 Creatinine 1.09 mg/dL (0.55-1.02) H 11/12/23 13:35 Glucose 142 mg/dL (74-106) H 11/12/23 13:35 Magnesium 2.3 mg/dL (1.6-2.4) 11/12/23 13:35 Home Medications: Metformin HCl 500 mg PO BID 12/11/17 Potassium Oral Tab [Klor-Con 10 mEq Tab*] 40 meq PO BID 12/11/17 Empagliflozin [Jardiance] 10 mg PO DAILY 12/28/21 Spironolactone [Aldactone*] 12.5 mg PO DAILY 12/28/21 Amiodarone HCl [Cordarone*] 200 mg PO DAILY 07/22/23 Apixaban [Eliquis *] 5 mg PO BID 07/22/23 Aspirin [Macario Chewable Aspirin] 81 mg PO DAILY 08/19/23 Meclizine HCl 25 mg PO TID 08/19/23 Cefdinir [Cefdinir*] 300 mg PO BID 10/23/23 Doxycycline Hyclate 100 mg PO BID 10/23/23 Torsemide [Demadex*] 20 mg PO TID #90 tab 11/15/23 predniSONE [Prednisone*] 40 mg PO DAILY #10 tab 11/15/23 Diet: ADA Activity: Ad sergei Followup: Lucy Schaeffer NP [Primary Care Provider] - 1-2 Weeks Time spent managing pt's care (in minutes): 26
[2023-11-12] MEDS: INSULIN REGULAR (HUMAN) 100 UNIT/ML SQ SCH (18:45)
[2023-11-12 18:51] VITALS: O2SAT 97
[2023-11-12 20:07] VITALS: BMI 40.2
[2023-11-12] MEDS: FUROSEMIDE 40 MG/4 ML VIAL IV SCH (22:21)
[2023-11-12] MEDS: APIXABAN 5 MG TABLET PO SCH (22:21)
[2023-11-13 03:44] LABS: Absolute Eosinophils 0.1 K/uL (0-0.5); Absolute Lymphocytes (CBC) 1.2 K/uL (0.7-4.9); Absolute Monocytes 0.3 K/uL (0.1-1.3); Absolute Neutrophil 2.8 K/uL (1.8-8.0); Basophils % 0.7 % (0-1.3); Eosinophils % 2.6 % (0-4.4); Hematocrit 33.6 % (36.0-45.0); Hemoglobin 11.1 g/dL (12.0-15.0); Lymphocytes % 27.6 % (15.3-44.8); MCH 28.1 pg (27.0-35.0); MCHC 33.1 g/dL (32.0-36.0); MPV 9.5 fL (7.6-11.3); Monocytes % 7.2 % (3.3-12.3); Neutrophils % 61.9 % (41.7-73.7); Platelets 185 thou/uL (152-406); RBC Red Blood Cell Count 3.96 M/uL (3.86-4.86); Red Cell Distribution Width 17.7 % (12.1-15.2)
[2023-11-13 04:05] LABS: Anion Gap 7.7 mEq/L (5.0-15.0); Magnesium 2.1 mg/dL (1.6-2.4); Phosphorus 3.4 mg/dL (2.5-4.9); Potassium 2.7 mEq/L (3.5-5.1)
[2023-11-13 08:20] VITALS: BP 100/57; TEMP 97.1
[2023-11-13] MEDS: POTASSIUM CL SA 10 MEQ TAB PO ONE (08:40)
[2023-11-13] MEDS ORDERED: ASPIRIN 81 MG CHEWABLE TABLET PO SCH (09:00)
[2023-11-13] MEDS ORDERED: SPIRONOLACTONE 25 MG TABLET PO SCH (09:00)
[2023-11-13] MEDS ORDERED: POTASSIUM CL SA 10 MEQ TAB PO ONE (09:00)
[2023-11-13] MEDS ORDERED: AMIODARONE HCL 200 MG TAB PO SCH (09:00)
[2023-11-13] MEDS: POTASSIUM CL SA 10 MEQ TAB PO SCH (09:52)
--- NOTE | 2023-11-13 12:35 | ECHO ---
HEIGHT: 5 ft 2 in WEIGHT: 213 lb 14.4 oz DATE OF STUDY: 11/13/[address]: Aditya Brito MD 2-DIMENSIONAL: YES M.MODE: YES DOPPLER: YES COLOR FLOW: YES TDS: PORTABLE: YES DEFINITY: BUBBLE STUDY: DIAGNOSIS: CONGESTIVE HEART FAILURE EXACERBATION CARDIAC HISTORY: CATHERIZATION: NO SURGERY: NO PROSTHETIC VALVE: NO PACEMAKER: YES MEASUREMENTS (cm) DIASTOLIC (NORMALS) SYSTOLIC (NORMALS) IVSd 1.3 (0.6-1.2) LA Diam 4.2 (1.9-4.0) LVEF 10-15% LVIDd 5.5 (3.5-5.7) LVIDs 4.5 (2.0-3.5) %FS 18% LVPWd 1.2 (0.6-1.2) Ao Diam 3.0 (2.0-3.7) 2 DIMENSIONAL ASSESSMENT: RIGHT ATRIUM: NORMAL LEFT ATRIUM: MILD DILATED RIGHT VENTRICLE: PACEMAKER LEAD SEEN LEFT VENTRICLE: MODERATE DILATED TRICUSPID VALVE: MILD TRICUSPID REGURGITATION MITRAL VALVE: MODERATE TO SEVERE MITRAL REGURGITATION PULMONIC VALVE: NORMAL AORTIC VALVE: NORMAL PERICARDIAL EFFUSION: NONE AORTIC ROOT: NORMAL LEFT VENTRICULAR WALL MOTION: SEVERE GLOBAL HYPOKINESIS DOPPLER/COLOR FLOW: DIASTOLIC DYSFUNCTION COMMENTS: 1. MODERATE DILATED LEFT VENTRICULAR CAVITY 2. SEVERE REDUCED LEFT VENTRICULAR SYSTOLIC FUNCTION, EJECTION FRACTION 10-15%, SEVERE GLOBAL HYPOKINESIS 3. MODERATE TO SEVERE MITRAL REGURGITATION 4. MILD TRICUSPID REGURGITATION 5. ELEVATED FILLING PRESSURE (RIGHT ATRIUM GREATER THAN 20 mmHg) 6. SEVERE PULMONARY HYPERTENSION (RIGHT VENTRICULAR SYSTOLIC PRESSURE GREATER THAN 60 mmHg) TECHNOLOGIST: ANNIKA BELL
--- NOTE | 2023-11-13 14:10 | EKG ---
Test Date: 2023-11-12 Test Time: 13:31:29 Tunnel Worker: ADRIANA MEASUREMENT RESULTS: Intervals: Rate: 88 UT: 134 QRSD: 176 QT: 412 QTc: 498 [place]: P: 70 UT: 134 QRS: 147 T: 28 INTERPRETIVE STATEMENTS: Atrial-sensed ventricular-paced rhythm Abnormal ECG Compared to ECG 10/23/2023 22:57:34 No significant changes Electronically Signed On 11-13-23 14:07:14 CDT by Lan Dawson
== END 2023-11-13 10:53 | disposition home or self-care (01) ==
LOC: ER 13:04 → ERHOLD 15:36 → 2ND 17:15
PROVIDERS: ADMIT Internal Medicine; ATTEND Internal Medicine
DX: I50.40 Unspecified combined systolic (congestive) and diastolic (congestive) heart failure (principal); R07.9 Chest pain, unspecified; I48.0 Paroxysmal atrial fibrillation; I25.2 Old myocardial infarction; J44.9 Chronic obstructive pulmonary disease, unspecified; E11.9 Type 2 diabetes mellitus without complications; I10 Essential (primary) hypertension; Z88.0 Allergy status to penicillin; Z79.82 Long term (current) use of aspirin
CPT/HCPCS: 36415; 71045; 80048; 82947; 83735; 83880; 84100; 84484; 85025; 85610; 93005; 93306; 96374; 99285; G0378; J1940

== ENCOUNTER 2023-11-13 21:30 | Inpatient (IN) | payer OTHER ==
--- NOTE | 2023-11-13 22:29 | RAD REPORT ---
EXAM DESCRIPTION: Rebecca Single View11/13/2023 10:10 pm CLINICAL HISTORY: Shortness of breath COMPARISON: none FINDINGS: Mild bilateral social opacities Heart is mildly moderately enlarged. Pacemaker leads in place IMPRESSION: These findings may indicate mild CHF
[2023-11-13 22:35] LABS: Absolute Basophils 0.1 K/uL (0-0.5); Absolute Eosinophils 0.1 K/uL (0-0.5); Absolute Lymphocytes (CBC) 1.1 K/uL (0.7-4.9); Absolute Monocytes 0.3 K/uL (0.1-1.3); Absolute Neutrophil 4.3 K/uL (1.8-8.0); Basophils % 0.9 % (0-1.3); Eosinophils % 1.2 % (0-4.4); Hematocrit 37.4 % (36.0-45.0); Hemoglobin 12.1 g/dL (12.0-15.0); Lymphocytes % 18.2 % (15.3-44.8); MCH 27.5 pg (27.0-35.0); MCHC 32.3 g/dL (32.0-36.0); MCV 85.1 fL (80-100); MPV 9.8 fL (7.6-11.3); Neutrophils % 73.7 % (41.7-73.7); Nucleated Red Blood Cells % 0.2 % (0-0); Platelets 239 thou/uL (152-406); RBC Red Blood Cell Count 4.39 M/uL (3.86-4.86); Red Cell Distribution Width 17.6 % (12.1-15.2)
[2023-11-13 22:47] LABS: Anion Gap 9.3 mEq/L (5.0-15.0); Potassium 4.3 mEq/L (3.5-5.1)
--- NOTE | 2023-11-13 23:05 | ER ---
Nurse's Notes [facility] Name: Sukh York Age: 63 yrs Sex: Female : 1960 Arrival Date: 11/13/2023 Time: 21:30 Bed 2 Private MD: Diagnosis: Chest pain, unspecified;Unspecified combined systolic (congestive) and diastolic (congestive) heart failure Presentation: 11/12 21:36 Chief complaint: Patient states: Chest pain to the left side of chest that does not cm10 radiate onset today. Pt rates pain 10/10 and describes it as aching. Pt also reports shortness of breath. Pt speaking in complete sentences during triage with no distress, respirations even and unlabored. Pt was just discharged from hospital today. Coronavirus screen: Client denies travel out of the [place] in the last 14 days. At this time, the client does not indicate any symptoms associated with coronavirus-19. Ebola Screen: Patient denies travel to an Ebola-affected area in the 21 days before illness onset. No symptoms or risks identified at this time. Initial Sepsis Screen: Does the patient meet any 2 criteria? Mean Arterial Pressure (MAP) < 65. Initial Sepsis Screen: Does the patient have a suspected source of infection? No. Patient's initial sepsis screen is negative. Risk Assessment: Do you want to hurt yourself or someone else? Patient reports no desire to harm self or others. Onset of symptoms was November 13, 2023. 21:36 Method Of Arrival: Wheelchair cm10 21:36 Acuity: RADHA 2 cm10 Triage Assessment: 21:38 General: Appears in no apparent distress. comfortable, Behavior is calm, cooperative. cm10 Pain: Complains of pain in chest Pain does not radiate. Pain currently is 10 out of 10 on a pain scale. Quality of pain is described as aching. Neuro: No deficits noted. Level of Consciousness is awake, alert, obeys commands, Oriented to person, place, time, situation, Appropriate for age. Respiratory: No deficits noted. Reports shortness of breath Airway is patent Respiratory effort is even, unlabored, Respiratory pattern is regular, symmetrical. 22:21 Respiratory: Onset: The symptoms/episode began/occurred gradually, the patient has kd3 moderate shortness of breath. Historical: - Allergies: 21:38 PENICILLINS; cm10 - PMHx: 21:38 Aneurysm; Arthritis; CHF; COPD; Diabetes - NIDDM; Hypertension; cm10 - PSHx: 21:38 back; defibrillator; cm10 - Immunization history:: Adult Immunizations up to date. - Infectious Disease History:: Denies. - Social history:: Smoking status: Patient denies any tobacco usage or history of. Screenin:21 [facility] ED Fall Risk Assessment (Adult) History of falling in the last 3 months, kd3 including since admission No falls in past 3 months (0 pts) Confusion or Disorientation No (0 pts) Intoxicated or Sedated No (0 pts) Impaired Gait No (0 pts) Mobility Assist Device Used No (0 pt) Altered Elimination No (0 pt) Score/Fall Risk Level 0 - 2 = Low Risk Oriented to surroundings. Abuse screen: Denies threats or abuse. Denies injuries from another. Nutritional screening: No deficits noted. Tuberculosis screening: No symptoms or risk factors identified. Assessment: 22:20 General: Appears in no apparent distress. Behavior is calm, cooperative. Pain: kd3 Complains of pain in chest. Cardiovascular: Rhythm is regular. Respiratory: Airway is patent Trachea midline Respiratory effort is even, unlabored, Respiratory pattern is regular, symmetrical, Breath sounds are clear bilaterally. 22:54 General: Pt is independently ambulatory to the restroom with daughter. No SOB noted. . kd3 Neuro: Level of Consciousness is awake, alert, obeys commands, Oriented to person, place, time, situation, Appropriate for age. Vital Signs: 21:36 BP 90 / 45; Pulse 84; Resp 18; Temp 98.2(TE); Pulse Ox 98% on R/A; MAP 59 mmHg; Weight cm10 96.62 kg; Height 5 ft. 2 in. ; Pain 10/10; 22:16 BP 99 / 65; Pulse 77; Resp 16; Pulse Ox 99% on R/A; kd3 11/13 01:14 BP 98 / 62; Pulse 72; Resp 17; Pulse Ox 17% on R/A; kd3 11/12 21:36 Body Mass Index 38.96 (96.62 kg, 157.48 cm) cm10 11/12 21:36 Pain Scale: Adult cm10 ED Course: 11/12 21:31 Patient arrived in ED. mr 21:38 Triage completed. cm10 21:39 Arm band placed on Patient placed in an exam room, on a stretcher. EKG completed in cm10 triage. Results shown to MD. 21:40 EKG done, by ED staff, reviewed by Gus San MD. cm10 21:43 Amalia Brothers FNP-C is PHCP. kb 21:43 Gus San MD is Attending Physician. kb 21:45 Angélica Meade, RN is Primary Nurse. kd3 22:12 XRAY Chest (1 view) In Process Unspecified. EDMS 22:15 Basic Metabolic Panel Sent. kd3 22:15 CBC with Diff Sent. kd3 22:15 NT PRO-BNP Sent. kd3 22:15 Troponin HS Sent. kd3 22:15 No provider procedures requiring assistance completed. Inserted saline lock: 20 gauge kd3 in left antecubital area, using aseptic technique. Blood collected. 22:15 Initial lab(s) drawn, by me, sent to lab. kd3 22:21 Patient has correct armband on for positive identification. Provided Education on: O2 kd3 use. 23:04 Todd Elizabeth MD is Hospitalizing Provider. kb 11/13 01:13 Patient admitted, IV remains in place. kd3 Administered Medications: No medications were administered Medication: 11/12 21:40 VIS not applicable for this client. cm10 Outcome: 23:04 Decision to Hospitalize by Provider. kb 11/13 01:13 Admitted to Med/surg kd3 Condition: stable Discharge instructions given to patient, Instructed on the need for admit, Demonstrated understanding of instructions, 02:19 Patient left the ED. kd3 Signatures: Dispatcher [employer] EDIA Amalia Brothers FNP-C FNP-Ckb RobertYakelin, Reg Reg mr Angélica Meade, RN RN kd3 Mirta Lutz, DAY RN cm10 Corrections: (The following items were deleted from the chart) 11/12 21:39 21:36 Chief complaint: Patient states: Chest pain to the left side of chest that does cm10 not radiate onset today. Pt rates pain 10/10 and describes it as aching. Pt was just discharged from hospital today. cm10
--- NOTE | 2023-11-13 23:05 | EDPHYS ---
Physician Documentation [facility] Name: Sukh York Age: 63 yrs Sex: Female : 1960 Arrival Date: 11/13/2023 Time: 21:30 Bed 2 Private MD: ED Physician Gus San HPI: 11/12 22:57 This 63 yrs old Female presents to ER via Wheelchair with complaints of kb Shortness Of Breath, Urinary Problem. 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 States she cannot catch her breath when walking short distances. . Historical: - Allergies: 21:38 PENICILLINS; cm10 - PMHx: 21:38 Aneurysm; Arthritis; CHF; COPD; Diabetes - NIDDM; Hypertension; cm10 - PSHx: 21:38 back; defibrillator; cm10 - Immunization history:: Adult Immunizations up to date. - Infectious Disease History:: Denies. - Social history:: Smoking status: Patient denies any tobacco usage or history of. ROS: 22:55 Constitutional: As per HPI kb Exam: 22:55 Constitutional: This is a well developed, well nourished patient who is awake, alert, kb and in no acute distress. Head/Face: Normocephalic, atraumatic. ENT: Moist Mucous membranes Cardiovascular: Regular rate Abdomen/GI: Soft, non-tender. No distention Skin: Warm, dry with normal turgor. Normal color. MS/ Extremity: Pulses equal, no cyanosis. Neurovascular intact. Full, normal range of motion. Neuro: Awake and alert, GCS 15, oriented to person, place, time, and situation. Moves all extremities. Normal gait. 22:55 Respiratory: mild respiratory distress is noted, Respirations: labored breathing, that is mild, on exertion, Breath sounds: are clear throughout, Vital Signs: 21:36 BP 90 / 45; Pulse 84; Resp 18; Temp 98.2(TE); Pulse Ox 98% on R/A; MAP 59 mmHg; Weight cm10 96.62 kg; Height 5 ft. 2 in. ; Pain 10/10; 22:16 BP 99 / 65; Pulse 77; Resp 16; Pulse Ox 99% on R/A; kd3 11/13 01:14 BP 98 / 62; Pulse 72; Resp 17; Pulse Ox 17% on R/A; kd3 11/12 21:36 Body Mass Index 38.96 (96.62 kg, 157.48 cm) cm10 11/12 21:36 Pain Scale: Adult cm10 MDM: 11/12 21:43 Patient medically screened. kb 22:56 Differential diagnosis: CHF exacerbation, Myocardial Infarction pulmonary edema. Data kb reviewed: vital signs, nurses notes. Consideration of Admission/Observation Patient was admitted/placed on observation. Escalation of care including admission/observation considered. Management of patient was discussed with the following: Hospitalist: Dr Elizabeth accepts pt for admission. Counseling: I had a detailed discussion with the patient and/or guardian regarding the historical points, exam findings, and any diagnostic results supporting the discharge/admit diagnosis, lab results, radiology results, the need for further work-up and treatment in the hospital. 11/12 21:44 Order name: Basic Metabolic Panel; Complete Time: 22:52 kb 11/12 21:44 Order name: CBC with Diff; Complete Time: 22:45 kb 11/12 21:44 Order name: NT PRO-BNP; Complete Time: 22:52 kb 11/12 21:44 Order name: Troponin HS; Complete Time: 22:52 kb 11/12 23:42 Order name: Urinalysis w/ reflexes [facility] 11/12 23:42 Order name: CBC with Automated Diff [facility] 11/12 23:42 Order name: CBC with Automated Diff [facility] 11/12 23:42 Order name: Comprehensive Metabolic Panel [facility] 11/12 23:42 Order name: Comprehensive Metabolic Panel [facility] 11/12 23:42 Order name: Troponin High Sensitivity [facility] 11/12 23:42 Order name: Troponin High Sensitivity [facility] 11/12 23:42 Order name: Troponin High Sensitivity [facility] 11/12 23:42 Order name: Troponin High Sensitivity [facility] 11/12 21:44 Order name: XRAY Chest (1 view); Complete Time: 22:30 kb 11/12 21:44 Order name: EKG; Complete Time: 21:44 kb 11/12 23:42 Order name: CONS Physician Consult [facility] 11/12 21:44 Order name: Cardiac monitoring; Complete Time: 22:15 kb 11/12 21:44 Order name: EKG - Nurse/Tech; Complete Time: 22:15 kb 11/12 21:44 Order name: IV Saline Lock; Complete Time: 22:15 kb 11/12 21:44 Order name: Labs collected and sent; Complete Time: 22:15 kb 11/12 21:44 Order name: O2 Per Protocol; Complete Time: 22:15 kb 11/12 21:44 Order name: O2 Sat Monitoring; Complete Time: 22:15 kb Administered Medications: No medications were administered Disposition Summary: 11/13/23 23:04 Hospitalization Ordered Notes: Hospitalization Status: Observation kb Provider: Todd Elizabeth Location: Telemetry/MedSurg (observation) kb Condition: Stable kb Problem: new kb Symptoms: are unchanged kb Bed/Room Type: Standard Room Assignment: 220(11/13/23 23:58) vc1 Diagnosis - Chest pain, unspecified kb - Unspecified combined systolic (congestive) and diastolic (congestive) heart failure kb Forms: - Medication Reconciliation Form kb - SBAR form kb - Leadership Thank You Letter kb Signatures: Dispatcher [employer] Amalia Bay FNP-C FNP-Sandhya Shaikh RN RN vc1 Mirta Lutz, RN RN cm10 Corrections: (The following items were deleted from the chart) 23:58 23:04 kb vc1
--- NOTE | 2023-11-13 23:36 | P.HP ---
Certification for Inpatient Patient admitted to: Observation With expected LOS: <2 Midnights Practitioner: I am a practitioner with admitting privileges, knowledge of patient current condition, hospital course, and medical plan of care. Services: Services provided to patient in accordance with Admission requirements found in Title 42 Section 412.3 of the Code of Federal Regulations Patient History Date of Service: 11/14/23 Reason for admission: SOB History of Present Illness: 63 year old female with past medical history of hypertension, aneurysm, arthritis, CHF, COPD, diabetesNIDDM, who presents to the ED with chief complaint of generalized weakness, chest discomfort and shortness of breath. She was just discharged home today. She reports becoming more short of breath while ambulating in the house, going up stairs . Or even with minimal activities. Denies any chest pain. The patient was more and more short of breath was brought back to the ER No fever or chills. Patient was assessed in the ER and is admitted for further management for CHF exacerbation. She was recently admitted 10/23/23 with NSTEMI and a heart catheterization performed showing normal coronaries. Allergies Penicillins Allergy (Mild, Verified 12/28/21 08:40) Convulsions Home medications list reviewed: Yes Home Medications: Metformin HCl 500 mg PO BID 12/11/17 Potassium Oral Tab [Klor-Con 10 mEq Tab*] 40 meq PO BID 12/11/17 Empagliflozin [Jardiance] 10 mg PO DAILY 12/28/21 Spironolactone [Aldactone*] 12.5 mg PO DAILY 12/28/21 Amiodarone HCl [Cordarone*] 200 mg PO DAILY 07/22/23 Apixaban [Eliquis *] 5 mg PO BID 07/22/23 Aspirin [Macario Chewable Aspirin] 81 mg PO DAILY 08/19/23 Meclizine HCl 25 mg PO TID 08/19/23 Cefdinir [Cefdinir*] 300 mg PO BID 10/23/23 Doxycycline Hyclate 100 mg PO BID 10/23/23 Furosemide [Lasix] 40 mg PO BID #60 tab 11/12/23 - Past Medical/Surgical History Diabetic: No Past Medical History: Reviewed- Non-Contributory -: HTN -: [id number]-dependent -: CHF -systolic -: AICD placement -: DEE DEE -: Obesity -: COPD -: Paroxysmal A-fib Past Surgical History: Reviewed- Non-Contributory -: AICD placement 2014 -: cholecystectomy -: vein surgery Psychosocial/ Personal History: Lives at home with family - Family History Family History: Reviewed- Non-Contributory - Social History Smoking Status: Never smoker Alcohol use: No CD- Drugs: No Caffeine use: Yes Review of Systems 10-point ROS is otherwise unremarkable Physical Examination - Vital Signs Temperature: 98.2 F Blood Pressure: 92/46 Pulse: 82 Respirations: 18 Pulse Ox (%): 94 - Physical Exam General: Alert, In no apparent distress, Oriented x3 HEENT: Atraumatic, Normocephalic Neck: Supple, 2+ carotid pulse no bruit Respiratory: Clear to auscultation bilaterally, Normal air movement, Crackles/rales Cardiovascular: Normal pulses, Regular rate/rhythm, Normal S1 S2 Capillary refill: <2 Seconds Gastrointestinal: Soft and benign, W/out hepatosplenomegaly Musculoskeletal: No clubbing, No swelling Integumentary: No rashes, No breakdown Neurological: Normal speech, Normal strength at 5/5 x4 extr, Cranial nerves 3-12 intact, Normal reflexes 2+ Lymphatics: No axilla or inguinal lymphadenopathy - Studies Laboratory Data (last 24 hrs) 11/13/23 11/13/23 22:18 22:18 WBC 5.80 Hgb 12.1 D Hct 37.4 Plt Count 239 D Sodium 138 Potassium 4.3 D BUN 20 H Creatinine 1.48 H Glucose 151 H Assessment and Plan - Problems (Diagnosis) (1) CHF (congestive heart failure) Current Visit: No Status: Chronic Plan: Acute on chronic CHF systolic Monitor closely on telemetry Started on aggressive diuresis X-ray findings noted Oxygen supplementation Will try to wean down oxygen requirement Continue home medications Titrate as needed Cardiology consult Patient had an AICD placement Patient had an echocardiogram this morning 1. MODERATE DILATED LEFT VENTRICULAR CAVITY 2. SEVERE REDUCED LEFT VENTRICULAR SYSTOLIC FUNCTION, EJECTION FRACTION 10-15%, SEVERE GLOBAL HYPOKINESIS 3. MODERATE TO SEVERE MITRAL REGURGITATION 4. MILD TRICUSPID REGURGITATION 5. ELEVATED FILLING PRESSURE (RIGHT ATRIUM GREATER THAN 20 mmHg) 6. SEVERE PULMONARY HYPERTENSION (RIGHT VENTRICULAR SYSTOLIC PRESSURE GREATER THAN 60 mmHg) Status post AICD Monitor closely Hypertension Antihypertensives titrated Continue home medications and titrate as needed Hyperlipidemia Continue statin CKD stage II Monitor renal parameters Electrolytes monitor and replace accordingly Diabetes Insulin sliding scale Accu-Chek before every meal and at bedtime GI/DVT prophylaxis Advanced directive full code Qualifiers: Heart failure type: unspecified Heart failure chronicity: chronic Qualified Code(s): I50.9 - Heart failure, unspecified Discharge Plan: Home Plan to discharge in: 48 Hours - Advance Directives Does patient have a Living Will: No Does patient have a Durable POA for Healthcare: No - Code Status/Comfort Care Code Status: Full Code Time Spent Managing Pts Care (In Minutes): 48
[2023-11-13] MEDS ORDERED: IPRATROPIUM BROM 0.5MG/2.5ML NEB PRN (23:37)
[2023-11-13] MEDS ORDERED: ALBUTEROL 2.5 MG/3 ML NEB SOL NEB PRN (23:37)
[2023-11-13] MEDS ORDERED: ACETAMINOPHEN 325 MG TABLET PO PRN (23:37)
[2023-11-13] MEDS ORDERED: ONDANSETRON 4 MG/2 ML VIAL IV PRN (23:37)
[2023-11-14 04:28] LABS: Absolute Eosinophils 0.1 K/uL (0-0.5); Absolute Lymphocytes (CBC) 1.1 K/uL (0.7-4.9); Absolute Monocytes 0.3 K/uL (0.1-1.3); Absolute Neutrophil 4.2 K/uL (1.8-8.0); Basophils % 0.6 % (0-1.3); Hematocrit 35.5 % (36.0-45.0); Hemoglobin 11.7 g/dL (12.0-15.0); Lymphocytes % 18.8 % (15.3-44.8); MCH 27.9 pg (27.0-35.0); MCV 84.5 fL (80-100); MPV 9.9 fL (7.6-11.3); Monocytes % 6.1 % (3.3-12.3); Neutrophils % 73.5 % (41.7-73.7); Platelets 213 thou/uL (152-406); Red Cell Distribution Width 17.8 % (12.1-15.2)
[2023-11-14 04:49] LABS: ALT/SGPT 18 U/L (13-56); Albumin 3.3 g/dL (3.4-5.0); Alkaline Phosphatase 64 U/L (45-117); Anion Gap 8.6 mEq/L (5.0-15.0); BUN Blood Urea Nitrogen 22 mg/dL (7-18); Bicarbonate 26 mEq/L (21-32); Bilirubin Total 0.7 mg/dL (0.2-1.0); Globulin 3.4 g/dL (2.3-3.5); Glomerular Filtration Rate 55 ml/min (=/>90); Glucose Level 146 mg/dL (74-106); Potassium 3.6 mEq/L (3.5-5.1); Protein, Total 6.7 g/dL (6.4-8.2); Sodium Level 138 mEq/L (136-145)
[2023-11-14 04:50] LABS: AST/SGOT < 10 U/L (15-37)
[2023-11-14] MEDS: FUROSEMIDE 40 MG/4 ML VIAL IV SCH (06:00)
[2023-11-14] MEDS: AMIODARONE HCL 200 MG TAB PO SCH (08:41)
[2023-11-14] MEDS: ASPIRIN 81 MG CHEWABLE TABLET PO SCH (08:41)
[2023-11-14] MEDS: SPIRONOLACTONE 25 MG TABLET PO SCH (08:41)
[2023-11-14] MEDS: ENOXAPARIN 40 MG/0.4 ML SQ SCH (08:42)
[2023-11-14] MEDS: ALBUTEROL 2.5 MG/3 ML NEB SOL NEB SCH (10:32)
[2023-11-14] MEDS: IPRATROPIUM BROM 0.5MG/2.5ML NEB SCH (13:20)
--- NOTE | 2023-11-14 13:35 | P.PN ---
Subjective Date of Service: 11/14/23 Chief Complaint: SOB Patient reports significant improvement in her shortness of breath compared to yesterday. She denies any chest pain. She feels her diuretic is not working because she is not urinating enough after taking it. Physical Examination - Vital Signs Temperature: 98.3 F Blood Pressure: 102/67 Pulse: 72 Respirations: 16 Pulse Ox (%): 99 - Studies Laboratory Data (last 24 hrs) 11/13/23 11/13/23 22:18 22:18 WBC 5.80 Hgb 12.1 D Hct 37.4 Plt Count 239 D Sodium 138 Potassium 4.3 D BUN 20 H Creatinine 1.48 H Glucose 151 H Assessment And Plan - Plan Physical examination General: Alert and oriented x3, NAD, HEENT: Conjunctiva not pale, anicteric sclera Neck: Supple, no elevated JVD Heart: Heart sounds 1 and 2 normal, regular rhythm, normal rate, no pedal edema Lungs: Clear to auscultation bilaterally, adequate breath sounds bilaterally, no rhonchi or crackles. Abdomen: Soft, nondistended, nontender, normal bowel sounds. Extremities: No tenderness, no deformity Skin: Normal skin turgor, no rash, no nodules or ulcers. Neuro: No focal motor deficit. Normal speech. Psychiatry: Normal mood, no agitation. Assessment and plan Acute on chronic CHF systolic Patient treated with IV Lasix. Symptoms have improved. Patient feels her Bumex has not been effective and did not see any improvement with oral Lasix. IV Lasix transition to oral Torsemide Monitor intake and output. She is currently tolerating room air with SaO2 of 99%. Continue other home medications Cardiology consulted Status post AICD. Echocardiogram yesterday shows EF of 10 to 15% and severe pulmonary hypertension. Home oxygen evaluation. Monitor closely. COPD exacerbation Scheduled nebs Oral prednisone Pulmonary consult. Hypertension Patient has borderline low blood pressure. Patient will benefit from Entresto. Hyperlipidemia Continue statin CATHERINE Likely prerenal. Monitor renal parameters Patient is on diuretics. Diabetes type II Insulin sliding scale Hold metformin. Paroxysmal atrial fibrillation Continue amiodarone and Eliquis DVT prophylaxis: Eliquis Advanced directive full code
--- NOTE | 2023-11-14 13:50 | P.CNS ---
Date of Consult: 11/14/23 Chief Complaint: SOB History of Present Illness: Patient with PMH of HFrEF, atrial fibrillation, ICD/PM placement presetned with weakness, not feeling well, also swelling of lower extremities and SOB, denies chest pain, no palpitations, no syncope. Allergies Penicillins Allergy (Mild, Verified 12/28/21 08:40) Convulsions Home Medications: Metformin HCl 500 mg PO BID 12/11/17 Potassium Oral Tab [Klor-Con 10 mEq Tab*] 40 meq PO BID 12/11/17 Empagliflozin [Jardiance] 10 mg PO DAILY 12/28/21 Spironolactone [Aldactone*] 12.5 mg PO DAILY 12/28/21 Amiodarone HCl [Cordarone*] 200 mg PO DAILY 07/22/23 Apixaban [Eliquis *] 5 mg PO BID 07/22/23 Aspirin [Macario Chewable Aspirin] 81 mg PO DAILY 08/19/23 Meclizine HCl 25 mg PO TID 08/19/23 Cefdinir [Cefdinir*] 300 mg PO BID 10/23/23 Doxycycline Hyclate 100 mg PO BID 10/23/23 Torsemide [Demadex*] 20 mg PO TID #90 tab 11/15/23 predniSONE [Prednisone*] 40 mg PO DAILY #10 tab 11/15/23 - Past Medical/Surgical History Diabetic: No -: HTN -: [id number]-[id number]-dependent -: CHF -systolic -: AICD placement -: DEE DEE -: Obesity -: COPD -: Paroxysmal A-fib -: AICD placement 2014 -: cholecystectomy -: vein surgery Psychosocial/ Personal History: Lives at home with family - Social History Smoking Status: Former smoker Alcohol use: No CD- Drugs: No Caffeine use: Yes Review of Systems 10-point ROS is otherwise unremarkable Physical Examination Temp Pulse Resp BP Pulse Ox 98.3 F 72 16 102/67 99 11/14/23 13:48 11/14/23 13:48 11/14/23 13:48 11/14/23 13:48 11/14/23 13:48 General: Alert, In no apparent distress HEENT: Atraumatic, PERRLA, Mucous membr. moist/pink, EOMI, Sclerae nonicteric Neck: Supple, 2+ carotid pulse no bruit, No LAD, Without JVD or thyroid abnormality Respiratory: Clear to auscultation bilaterally, Normal air movement Cardiovascular: Regular rate/rhythm, Normal S1 S2 Gastrointestinal: Normal bowel sounds, No tenderness Musculoskeletal: No tenderness Integumentary: No rashes Neurological: Normal gait, Normal speech, Normal tone, Normal affect Lymphatics: No axilla or inguinal lymphadenopathy Laboratory Data (last 24 hrs) 11/13/23 11/13/23 22:18 22:18 WBC 5.80 Hgb 12.1 D Hct 37.4 Plt Count 239 D Sodium 138 Potassium 4.3 D BUN 20 H Creatinine 1.48 H Glucose 151 H - Problems (1) Acute on chronic systolic heart failure Status: Acute Plan: Patient says she is not really responsive to lasix or bumex torsemide 20 mg TID monitor input and output. continue aldactone 12.5 mg daily (2) Atrial fibrillation Status: Acute Plan: continue amiodarone 200 mg daily continue eliquis 5 mg BID (3) HTN (hypertension) Onset Date: 12/12/17 Status: Chronic Plan: as above. Qualifiers: Hypertension type: essential hypertension Qualified Code(s): I10 - Essential (primary) hypertension
[2023-11-14] MEDS: predniSONE 20 MG TAB PO SCH (14:19)
[2023-11-14] MEDS: TORSEMIDE 20 MG TAB PO SCH (14:19)
[2023-11-14 15:46] LABS: Specific Gravity 1.015 (1.005-1.030); Urine Bilirubin NEGATIVE (Negative); Urine Blood Negative (Negative); Urine Clarity Clear (Clear); Urine Color Light-Yellow (Yellow); Urine Glucose 4+ (Over) (Negative); Urine Ketones NEGATIVE (Negative); Urine Microscopic Reflex YN NO UMIC; Urine Nitrite NEGATIVE (Negative); Urine Protein NEGATIVE (Negative); Urine Urobilinogen Normal (Normal); Urine pH 6.5 (5.0-7.0)
[2023-11-14] MEDS: APIXABAN 5 MG TABLET PO SCH (20:53)
[2023-11-14] MEDS ORDERED: D50W 25 GM/50 ML SYRINGE IV PRN (23:06)
[2023-11-14] MEDS ORDERED: GLUCAGON 1 MG/VIAL IM PRN (23:06)
[2023-11-15] MEDS: INSULIN REGULAR (HUMAN) 100 UNIT/ML SQ SCH (00:04)
[2023-11-15 04:40] VITALS: O2SAT 97
[2023-11-15 07:17] VITALS: BMI 39.1
[2023-11-15] MEDS ORDERED: INSULIN REGULAR (HUMAN) 100 UNIT/ML SQ SCH (07:30)
[2023-11-15] MEDS: HOME MED 1 EA UNK (Empagliflozin [Jardiance] 10 MG Tablet) PO SCH (09:00)
--- NOTE | 2023-11-15 09:07 | P.DS ---
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 She was just discharged home same day. She reported becoming more short of breath while ambulating in the house, going up stairs or even with minimal activities. Chest x-ray done in the emergency department demonstrated pulmonary vascular congestion. Initial troponin negative. Patient was assessed in the ER and is admitted for further management for CHF exacerbation. She was recently admitted 10/23/23 with NSTEMI and a heart catheterization performed showing normal coronaries. Hospital Course: Patient was admitted to the medical and treated for CHF exacerbation with IV Lasix. Troponins trended negative. Patient with a history of recent cardiac cath which showed normal coronary arteries. IV Lasix was transitioned to oral torsemide, patient's shortness of breath improved with treatments. Echocardiogram done on 11/12 showed EF of 13 to 15% indicating advanced heart failure. Patient is status post AICD. She is on Eliquis and amiodarone for atrial fibrillation. Patient was evaluated by cardiology and medical treatment with torsemide recommended. Hypokalemia was replaced with potassium supplementation. Patient is clinically improved, she has soft blood pressure likely related to the severe LV dysfunction. 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 Robledo within 2 days. She is discharged to follow- up with her auto mechanic supervisor Vital Signs/Physical Exam: Temp Pulse Resp BP Pulse Ox 97.8 F 71 16 108/63 96 11/15/23 08:00 11/15/23 08:00 11/15/23 08:00 11/15/23 08:00 11/15/23 08:00 General: Alert, In no apparent distress, Oriented x3 HEENT: Mucous membr. moist/pink Neck: Supple, JVD not distended Respiratory: Clear to auscultation bilaterally, Normal air movement Cardiovascular: No edema, Regular rate/rhythm, Normal S1 S2 Gastrointestinal: Soft and benign, Non-distended Musculoskeletal: No swelling Integumentary: No rashes, No cyanosis Neurological: Normal strength at 5/5 x4 extr Laboratory Data at Discharge: WBC 5.80 thou/uL (4.3-10.9) 11/14/23 03:20 Hgb 11.7 g/dL (12.0-15.0) L 11/14/23 03:20 Hct 35.5 % (36.0-45.0) L 11/14/23 03:20 Plt Count 213 thou/uL (152-406) 11/14/23 03:20 Sodium 138 mEq/L (136-145) 11/14/23 03:20 Potassium 3.6 mEq/L (3.5-5.1) D 11/14/23 03:20 BUN 22 mg/dL (7-18) H 11/14/23 03:20 Creatinine 1.14 mg/dL (0.55-1.02) H 11/14/23 03:20 Glucose 146 mg/dL (74-106) H 11/14/23 03:20 Total Bilirubin 0.7 mg/dL (0.2-1.0) 11/14/23 03:20 AST < 10 U/L (15-37) L 11/14/23 03:20 ALT 18 U/L (13-56) 11/14/23 03:20 Alkaline Phosphatase 64 U/L (45-117) 11/14/23 03:20 Home Medications: Metformin HCl 500 mg PO BID 12/11/17 Potassium Oral Tab [Klor-Con 10 mEq Tab*] 40 meq PO BID 12/11/17 Empagliflozin [Jardiance] 10 mg PO DAILY 12/28/21 Spironolactone [Aldactone*] 12.5 mg PO DAILY 12/28/21 Amiodarone HCl [Cordarone*] 200 mg PO DAILY 07/22/23 Apixaban [Eliquis *] 5 mg PO BID 07/22/23 Aspirin [Macario Chewable Aspirin] 81 mg PO DAILY 08/19/23 Meclizine HCl 25 mg PO TID 08/19/23 Cefdinir [Cefdinir*] 300 mg PO BID 10/23/23 Doxycycline Hyclate 100 mg PO BID 10/23/23 Torsemide [Demadex*] 20 mg PO TID #90 tab 11/15/23 predniSONE [Prednisone*] 40 mg PO DAILY #10 tab 11/15/23 New Medications: Torsemide [Demadex*] 20 mg PO TID #90 tab predniSONE [Prednisone*] 40 mg PO DAILY #10 tab Diet: AHA Activity: Ad sergei Followup: Lucy Schaeffer NP [Primary Care Provider] - 1-2 Weeks Glenn Robledo MD [OUTSIDE PHYSICIAN] - 2-3 Days Time spent managing pt's care (in minutes): 36
[2023-11-15 10:59] LABS: Anion Gap 11.2 mEq/L (5.0-15.0); Potassium 3.2 mEq/L (3.5-5.1)
[2023-11-15] MEDS: POTASSIUM CL SA 10 MEQ TAB PO ONE (11:48)
[2023-11-15 12:44] VITALS: BP 106/70; TEMP 97.3
--- NOTE | 2023-11-17 14:24 | EKG ---
Test Date: 2023-11-13 Test Time: 21:39:21 Cashier Ticket Selling: JAMESON MEASUREMENT RESULTS: Intervals: Rate: 82 MD: 148 QRSD: 174 QT: 434 QTc: 507 [place]: P: 86 MD: 148 QRS: -17 T: 85 INTERPRETIVE STATEMENTS: Electronic ventricular pacemaker Compared to ECG 11/12/2023 13:31:29 Atrial-sensed ventricular-paced complex(es) or rhythm no longer present Electronically Signed On 11-17-23 14:16:43 CDT by Lan Dawson
== END 2023-11-15 12:06 | disposition home or self-care (01) | DRG 291 ==
LOC: ER 21:30 → 2ND 23:37 → OBSVTOIN 11-15 08:57
PROVIDERS: ADMIT Family Medicine; ATTEND Internal Medicine
DX: I13.0 Hypertensive heart and chronic kidney disease with heart failure and stage 1 through stage 4 chronic kidney disease, or unspecified chronic kidney disease (principal); I50.23 Acute on chronic systolic (congestive) heart failure; J44.1 Chronic obstructive pulmonary disease with (acute) exacerbation; N17.9 Acute kidney failure, unspecified; N18.2 Chronic kidney disease, stage 2 (mild); E11.22 Type 2 diabetes mellitus with diabetic chronic kidney disease; I27.20 Pulmonary hypertension, unspecified; I48.0 Paroxysmal atrial fibrillation; E87.6 Hypokalemia; E66.9 Obesity, unspecified; M19.90 Unspecified osteoarthritis, unspecified site; J44.9 Chronic obstructive pulmonary disease, unspecified; I25.2 Old myocardial infarction; Z88.0 Allergy status to penicillin; Z79.82 Long term (current) use of aspirin; Z68.38 Body mass index [BMI] 38.0-38.9, adult; Z79.01 Long term (current) use of anticoagulants; Z79.84 Long term (current) use of oral hypoglycemic drugs; Z90.49 Acquired absence of other specified parts of digestive tract; Z79.899 Other long term (current) drug therapy; Z95.810 Presence of automatic (implantable) cardiac defibrillator; Z79.52 Long term (current) use of systemic steroids; Z87.891 Personal history of nicotine dependence
CPT/HCPCS: 36415; 71045; 80048; 80053; 81003; 82947; 83880; 84484; 85025; 93005; 94640; 94760; 99285; G0378; J1650; J1940; J7512; J7613; J7644

== ENCOUNTER 2023-11-19 01:21 | Emergency (ER) | payer OTHER ==
[2023-11-19] MEDS ORDERED: ALBUMIN HUMAN 25% 0 ML IV ONE (02:10)
[2023-11-19] MEDS ORDERED: FUROSEMIDE 40 MG/4 ML VIAL ONE (02:10)
[2023-11-19 02:54] LABS: Absolute Lymphocytes (CBC) 0.8 K/uL (0.7-4.9); Absolute Monocytes 0.3 K/uL (0.1-1.3); Absolute Neutrophil 7.8 K/uL (1.8-8.0); Basophils % 0.4 % (0-1.3); Eosinophils % 0.1 % (0-4.4); Hematocrit 41.8 % (36.0-45.0); Hemoglobin 13.4 g/dL (12.0-15.0); Lymphocytes % 9.2 % (15.3-44.8); MCH 27.3 pg (27.0-35.0); MCHC 32.1 g/dL (32.0-36.0); MCV 85.1 fL (80-100); MPV 10.2 fL (7.6-11.3); Monocytes % 3.7 % (3.3-12.3); Neutrophils % 86.6 % (41.7-73.7); Nucleated Red Blood Cells % 0.2 % (0-0); Platelets 341 thou/uL (152-406); RBC Red Blood Cell Count 4.92 M/uL (3.86-4.86); Red Cell Distribution Width 18.2 % (12.1-15.2)
[2023-11-19 02:56] LABS: PT Prothrombin Time 21.8 SECONDS (9.4-12.5); Protime INR 2.02
[2023-11-19 03:20] LABS: ALT/SGPT 21 U/L (13-56); Albumin 3.9 g/dL (3.4-5.0); Alkaline Phosphatase 69 U/L (45-117); Anion Gap 10.7 mEq/L (5.0-15.0); BUN Blood Urea Nitrogen 44 mg/dL (7-18); Bicarbonate 30 mEq/L (21-32); Bilirubin Direct 0.3 mg/dL (0-0.2); Bilirubin Indirect, Calculated 0.5 mg/dL (0.2-0.8); Bilirubin Total 0.8 mg/dL (0.2-1.0); Globulin 3.9 g/dL (2.3-3.5); Glomerular Filtration Rate 33 ml/min (=/>90); Glucose Level 222 mg/dL (74-106); Lipase 23 U/L (13-75); Magnesium 2.5 mg/dL (1.6-2.4); NT PRO-BNP 9043 pg/mL (<125); Potassium 3.7 mEq/L (3.5-5.1); Protein, Total 7.8 g/dL (6.4-8.2); Sodium Level 140 mEq/L (136-145); Troponin High Sensitivity 21.3 pg/mL (<58.9)
[2023-11-19 03:24] LABS: AST/SGOT < 10 U/L (15-37)
[2023-11-19 04:35] LABS: Band Neutrophils 2 % (0-1); Differential Total Cells Count 100; Lymphocytes 11 % (15-42); Monocytes 2 % (0-10); Nucleated Red Blood Cells 1 /100WBC; Reactive Lymphocytes 2 %; Segmented Neutrophils 83 % (40-80)
[2023-11-19 04:36] LABS: Blood Morphology Comment NOT SEEN (NOT SEEN); Platelet Estimate ADEQ
--- NOTE | 2023-11-19 06:09 | EDPHYS ---
Physician Documentation [facility] Name: Sukh York Age: 63 yrs Sex: Female : 1960 Arrival Date: 11/19/2023 Time: 01:21 Bed 2 Private MD: ED Physician Dionisio Robles HPI: 11/18 01:46 This 63 yrs old Female presents to ER via Unassigned with complaints of Chest sp4 Pressure. 01:47 Allergies: 21:38 PENICILLINS PMHx: Aneurysm; Arthritis; CHF; COPD; Diabetes - NIDDM; sp4 Hypertension PSHx: back; defibrillator; . 06:04 63-year-old female with history CHF and COPD presents with acute onset shortness of sp4 breath.. Historical: - Allergies: 01:50 PENICILLINS; jw7 - PMHx: 01:50 Aneurysm; Arthritis; CHF; COPD; Diabetes - NIDDM; Hypertension; jw7 - PSHx: 01:50 back; defibrillator; jw7 - Immunization history:: Adult Immunizations up to date. - Infectious Disease History:: Denies. - Social history:: Smoking status: Patient denies any tobacco usage or history of. - Family history:: not pertinent. ROS: 06:04 Constitutional: Negative for fever, chills, and weight loss, positive dyspnea. sp4 06:04 All other systems are negative, Exam: 06:04 Constitutional: This is a well developed, well nourished patient who is awake, alert, sp4 and in no acute distress. Head/Face: Normocephalic, atraumatic. Eyes: Pupils equal round and reactive to light, extra-ocular motions intact. Lids and lashes normal. Conjunctiva and sclera are not injected. Cornea within normal limits. Periorbital areas with no swelling, redness, or edema. ENT: Nares patent. No nasal discharge, no septal abnormalities noted. Tympanic membranes are normal and external auditory canals are clear. Oropharynx with no redness, swelling, or masses, exudates, or evidence of obstruction, uvula midline. Mucous membranes moist. Neck: Trachea midline, no thyromegaly or masses palpated, and no cervical lymphadenopathy. Supple, full range of motion without nuchal rigidity, or vertebral point tenderness. Chest/axilla: Normal chest wall appearance and motion. Nontender with no deformity. No lesions are appreciated. Cardiovascular: Regular rate and rhythm with a normal S1 and S2. No gallops, murmurs, or rubs. Normal PMI, no JVD. No pulse deficits. Respiratory: Lungs have equal breath sounds bilaterally, clear to auscultation and percussion. No rales, rhonchi or wheezes noted. No increased work of breathing, no retractions or nasal flaring. Abdomen/GI: Soft, with normal bowel sounds. No distension or tympany. No guarding or rebound. No evidence of tenderness throughout. Back: No spinal tenderness. No costovertebral tenderness. Skin: Warm, dry with normal turgor. Normal color with no rashes, no lesions, and no evidence of cellulitis. MS/ Extremity: Pulses equal, no cyanosis. Neurovascular intact. Full, normal range of motion. Neuro: Awake and alert, GCS 15, oriented to person, place, time, and situation. Cranial nerves II-XII grossly intact. Motor strength 5/5 in all extremities. Sensory grossly intact. Psych: Awake, alert, with orientation to person, place and time. Behavior, mood, and affect are within normal limits 06:04 ECG was reviewed by the Attending Physician. Paced rhythm at the rate of 80, EKG time 0 240. Vital Signs: 01:50 BP 103 / 91; Pulse 80; Resp 16 S; Temp 98.2(O); Pulse Ox 100% on R/A; Weight 97.52 kg; 7 Height 5 ft. 2 in. ; Pain 0/10; 02:30 BP 113 / 76; Pulse 80; Resp 18 S; Pulse Ox 96% on R/A; 7 03:30 BP 99 / 73; Pulse 74; Resp 18 S; Pulse Ox 95% on R/A; [facility] 04:30 BP 104 / 61; Pulse 72; Resp 18 S; Pulse Ox 95% on R/A; [facility] 06:00 BP 100 / 68; Pulse 69; Resp 18 S; Pulse Ox 96% on R/A; 7 01:50 Body Mass Index 39.32 (97.52 kg, 157.48 cm) [facility] 01:50 Pain Scale: Adult [facility] [place] Coma Score: 06:04 Eye Response: spontaneous(4). Motor Response: obeys commands(6). Verbal Response: sp4 oriented(5). Total: 15. MDM: 01:49 Patient medically screened. sp4 06:07 Differential diagnosis: acute pericarditis, anxiety, coronary artery disease sp4 costochondritis, esophagitis. HEART Score: History: Slightly Suspicious (0), ECG: Normal (0), Age: > 45 and < 65 years (1), Risk Factors: > or = 3 Risk factors for atherosclerotic disease (2), Troponin: < or = 1 x Normal Limit (0), Total Score = 3. Data reviewed: vital signs, nurses notes, old medical records, lab test result(s), EKG, radiologic studies, plain films. ED course: EXAM DESCRIPTION: Chest Single View CLINICAL HISTORY: CHEST PAIN COMPARISON: Chest x-ray 10/10/2023 TECHNIQUE: Single AP view of the chest. FINDINGS: Left-sided cardiac conduction device noted. Lung volumes adequate. Cardiac silhouette is enlarged, unchanged. No pneumothorax. No large pleural effusion. No focal consolidation. No acute bony finding. IMPRESSION: 1. No acute cardiopulmonary findings. 2. Unchanged enlarged cardiac silhouette. 11/18 01:46 Order name: Basic Metabolic Panel; Complete Time: 06:00 sp4 11/18 01:46 Order name: CBC with Diff; Complete Time: 06:00 sp4 11/18 01:46 Order name: LFT's; Complete Time: 06:00 sp4 11/18 01:46 Order name: Magnesium; Complete Time: 06:00 sp4 11/18 01:46 Order name: NT PRO-BNP; Complete Time: 06:00 sp4 11/18 01:46 Order name: PT-INR; Complete Time: 06:00 sp4 11/18 01:46 Order name: Troponin HS; Complete Time: 06:00 sp4 11/18 01:47 Order name: Lipase; Complete Time: 06:00 sp4 11/18 01:47 Order name: TSH; Complete Time: 06:00 sp4 11/18 01:47 Order name: T4 Free; Complete Time: 06:00 sp4 11/18 03:05 Order name: Manual Differential; Complete Time: 06:00 EDMS 11/18 01:46 Order name: XRAY Chest (1 view) sp4 11/18 01:46 Order name: EKG; Complete Time: 01:46 sp4 11/18 01:46 Order name: Cardiac monitoring; Complete Time: 01:58 sp4 11/18 01:46 Order name: EKG - Nurse/Tech; Complete Time: 02:57 sp4 11/18 01:46 Order name: IV Saline Lock; Complete Time: 02:57 sp4 11/18 01:46 Order name: Labs collected and sent; Complete Time: 02:57 sp4 11/18 01:46 Order name: O2 Per Protocol; Complete Time: 58 sp4 11/18 01:46 Order name: O2 Sat Monitoring; Complete Time: :58 sp4 EC:04 Rate is 80 beats/min. Rhythm is regular, Paced. Clinical impression: No evidence of sp4 ischemia. Interpreted by me. Reviewed by me. Administered Medications: 01:58 Not Given (Patient Refused): morphineor iv 4 mg IVP once over 4 mins 7 01:58 Not Given (Patient Refused): ondansetron 4 mg IVP once; over 2 minutes jw7 02:29 Drug: Furosemide IVP 40 mg IVP once; give over 2 minutes Route: IVP; Site: left [facility] antecubital; 03:36 Follow up: Response: No adverse reaction bm8 Disposition Summary: 11/19/23 06:08 Discharge Ordered Notes: Continue all home medications Location: Home sp4 Problem: new sp4 Symptoms: have improved sp4 Condition: Stable sp4 Diagnosis - Acute diastolic (congestive) heart failure sp4 - Acute on chronic diastolic heart failure, mild volume overload. sp4 Followup: sp4 - With: Private Physician - When: 7 - 10 days - Reason: Recheck today's complaints Discharge Instructions: - Discharge Summary Sheet sp4 - Heart Failure, Diagnosis sp4 Forms: - Patient Portal Instructions sp4 Signatures: Dispatcher [employer] EDMargie Castro RN RN jw7 Dionisio Robles MD MD sp4 Hussain Wells RN bm8 Corrections: (The following items were deleted from the chart) 01:47 01:47 LIPASE+C.LAB.BRZ ordered. EDMS EDMS
--- NOTE | 2023-11-19 06:09 | ER ---
Nurse's Notes [facility] [place] Name: Sukh York Age: 63 yrs Sex: Female : 1960 Arrival Date: 11/19/2023 Time: 01:21 Bed 2 Private MD: Diagnosis: Acute diastolic (congestive) heart failure;Acute on chronic diastolic heart failure, mild volume overload. Presentation: 11/18 01:50 Chief complaint: Patient states: "I'm having some SOB because I think I drank too much jw7 water today, I have CHF and am on a 32oz fluid restriction and when I drink too much I get SOB. They usually give me some Lasix and send me home". 01:50 Coronavirus screen: At this time, the client does not indicate any symptoms associated jw7 with coronavirus-19. Ebola Screen: No symptoms or risks identified at this time. Initial Sepsis Screen: Does the patient meet any 2 criteria? No. Patient's initial sepsis screen is negative. Does the patient have a suspected source of infection? No. Patient's initial sepsis screen is negative. Risk Assessment: Do you want to hurt yourself or someone else? Patient reports no desire to harm self or others. Onset of symptoms was November 18, 2023 at 18:00. 01:50 Method Of Arrival: Ambulatory jw7 01:50 Acuity: RADHA 3 jw7 Triage Assessment: 01:50 General: Appears in no apparent distress. uncomfortable, Behavior is calm, cooperative, jw7 appropriate for age. Pain: Denies pain. EENT: No deficits noted. No signs and/or symptoms were reported regarding the EENT system. Neuro: No deficits noted. [place] Agitation-Sedation Scale (RASS):. Cardiovascular: Reports shortness of breath, Denies chest pain, Heart tones S1 S2 present Capillary refill < 3 seconds Clubbing of nail beds is absent JVD is absent Patient's skin is warm and dry. Respiratory: Airway is patent Trachea midline Respiratory effort is even, unlabored, Respiratory pattern is regular, symmetrical. GI: Abdomen is round obese, Bowel sounds present X 4 quads. Abd is soft and non tender X 4 quads. : No deficits noted. No signs and/or symptoms were reported regarding the genitourinary system. Derm: Skin is intact, is healthy with good turgor, Skin is dry, Skin is normal, Skin temperature is warm. Musculoskeletal: Circulation, motion, and sensation intact. Range of motion: intact in all extremities. Historical: - Allergies: :50 PENICILLINS; jw7 - PMHx: :50 Aneurysm; Arthritis; CHF; COPD; Diabetes - NIDDM; Hypertension; jw7 - PSHx: :50 back; defibrillator; jw7 - Immunization history:: Adult Immunizations up to date. - Infectious Disease History:: Denies. - Social history:: Smoking status: Patient denies any tobacco usage or history of. - Family history:: not pertinent. Screenin:50 [facility] ED Fall Risk Assessment (Adult) History of falling in the last 3 months, jw7 including since admission No falls in past 3 months (0 pts) Confusion or Disorientation No (0 pts) Intoxicated or Sedated No (0 pts) Impaired Gait Yes (1 pt) Mobility Assist Device Used No (0 pt) Altered Elimination No (0 pt) Score/Fall Risk Level 0 - 2 = Low Risk Oriented to surroundings, Maintained a safe environment, Educated pt \\T\\ family on fall prevention, incl call for assistance when getting out of bed. Abuse screen: Denies threats or abuse. Denies injuries from another. Nutritional screening: No deficits noted. Tuberculosis screening: No symptoms or risk factors identified. Assessment: 02:05 General: See Triage Assessment. Pain: Denies pain. jw7 03:00 Reassessment: Patient appears in no apparent distress at this time. No changes from jw7 previously documented assessment. Patient and/or family updated on plan of care and expected duration. Pain level reassessed. Patient is alert, oriented x 3, equal unlabored respirations, skin warm/dry/pink. 04:00 Reassessment: Patient appears in no apparent distress at this time. Patient and/or jw7 family updated on plan of care and expected duration. Pain level reassessed. Patient is alert, oriented x 3, equal unlabored respirations, skin warm/dry/pink. Patient states feeling better. 05:00 Reassessment: Patient appears in no apparent distress at this time. No changes from jw7 previously documented assessment. Patient and/or family updated on plan of care and expected duration. Pain level reassessed. Patient is alert, oriented x 3, equal unlabored respirations, skin warm/dry/pink. 06:00 Reassessment: Patient appears in no apparent distress at this time. Patient and/or jw7 family updated on plan of care and expected duration. Pain level reassessed. Patient is alert, oriented x 3, equal unlabored respirations, skin warm/dry/pink. Patient states symptoms have improved. Vital Signs: 01:50 BP 103 / 91; Pulse 80; Resp 16 S; Temp 98.2(O); Pulse Ox 100% on R/A; Weight 97.52 kg; jw7 Height 5 ft. 2 in. ; Pain 0/10; 02:30 BP 113 / 76; Pulse 80; Resp 18 S; Pulse Ox 96% on R/A; jw7 03:30 BP 99 / 73; Pulse 74; Resp 18 S; Pulse Ox 95% on R/A; jw7 04:30 BP 104 / 61; Pulse 72; Resp 18 S; Pulse Ox 95% on R/A; jw7 06:00 BP 100 / 68; Pulse 69; Resp 18 S; Pulse Ox 96% on R/A; jw7 01:50 Body Mass Index 39.32 (97.52 kg, 157.48 cm) jw7 01:50 Pain Scale: Adult jw7 [place] Coma Score: 06:04 Eye Response: spontaneous(4). Motor Response: obeys commands(6). Verbal Response: sp4 oriented(5). Total: 15. ED Course: 01:22 Patient arrived in ED. mr 01:46 Dionisio Robles MD is Attending Physician. sp4 01:50 Arm band placed on. jw7 01:50 Patient has correct armband on for positive identification. Bed in low position. Call [facility] light in reach. Side rails up X2. Provided Education on: Use of Call Light. Client placed on continuous cardiac and pulse oximetry monitoring. NIBP monitoring applied. abrasive grader on. Pulse ox on. NIBP on. 01:50 O2 via RA. jw7 02:00 Initial lab(s) drawn, by me, sent to lab. EKG done, by ED staff, reviewed by Dionisio Robles MD. Inserted saline lock: 20 gauge in left antecubital area, using aseptic technique. Blood collected. 02:02 Triage completed. jw7 02:22 XRAY Chest (1 view) In Process Unspecified. EDMS 06:18 No provider procedures requiring assistance completed. IV discontinued, intact, jw7 bleeding controlled, No redness/swelling at site. Pressure dressing applied. Administered Medications: 01:58 Not Given (Patient Refused): morphineor iv 4 mg IVP once over 4 mins jw7 01:58 Not Given (Patient Refused): ondansetron 4 mg IVP once; over 2 minutes jw7 02:29 Drug: Furosemide IVP 40 mg IVP once; give over 2 minutes Route: IVP; Site: left jw7 antecubital; 03:36 Follow up: Response: No adverse reaction bm8 Medication: 06:19 VIS not applicable for this client. jw7 Outcome: 06:08 Discharge ordered by . ancelmo 06:18 Discharged to home ambulatory, jw7 06:18 Condition: stable 06:18 Discharge instructions given to patient, Instructed on discharge instructions, follow up and referral plans. Demonstrated understanding of instructions, follow-up care, 06:19 Patient left the ED. jw7 Signatures: Dispatcher [employer] EDUT Yakelin Jones, Reg Reg mr Margie Hayward, RN RN jw7 Dionisio Robles MD MD sp4 Hussain Wells, RN RN bm8
[2023-11-19 06:29] VITALS: BP 100/68; TEMP 98.2; O2SAT 96
--- NOTE | 2023-11-19 14:10 | RAD REPORT ---
EXAM DESCRIPTION: RAD - Chest Single View - 11/19/2023 2:20 am CLINICAL HISTORY: CHEST PAIN COMPARISON: Chest x-ray 10/10/2023 TECHNIQUE: Single AP view of the chest. FINDINGS: Left-sided cardiac conduction device noted. Lung volumes adequate. Cardiac silhouette is enlarged, unchanged. No pneumothorax. No large pleural effusion. No focal consolidation. No acute bony finding. IMPRESSION: 1. No acute cardiopulmonary findings. 2. Unchanged enlarged cardiac silhouette. Electronically signed by: Sara Doyle MD 11/19/2023 02:52 AM CDT Z9 Due to temporary technical issues with the PACS/Fluency reporting system, reports are being signed by the in house radiologist without review as a courtesy to ensure prompt reporting. The interpreting r adiologist is fully responsible for the content of the report.
--- NOTE | 2023-11-20 16:07 | EKG ---
Test Date: 2023-11-19 Test Time: 02:40:34 Corrugator Operator: KASSY MEASUREMENT RESULTS: Intervals: Rate: 80 [place]: 144 QRSD: 198 QT: 476 QTc: 548 [place]: P: 100 [place]: 144 QRS: -17 T: 96 INTERPRETIVE STATEMENTS: Atrial-sensed ventricular-paced rhythm Abnormal ECG Compared to ECG 11/13/2023 21:39:21 No significant changes Electronically Signed On 11-20-23 16:06:44 CDT by Victor Hugo Thomas
== END 2023-11-19 06:19 | disposition home or self-care (01) ==
LOC: ER 01:21
DX: I50.33 Acute on chronic diastolic (congestive) heart failure (principal); E87.70 Fluid overload, unspecified; I10 Essential (primary) hypertension; J44.9 Chronic obstructive pulmonary disease, unspecified; Z95.810 Presence of automatic (implantable) cardiac defibrillator; Z88.0 Allergy status to penicillin
CPT/HCPCS: 93005; 85025; 80048; 36415; 83735; 85610; 80076; 84443; 84484; 84439; 83690; 83880; 71045; 96374; 99285; J1940; P9047

== ENCOUNTER 2024-03-27 14:15 | Emergency (ER) | payer OTHER ==
[2024-03-27 15:39] LABS: Absolute Basophils 0.1 K/uL (0-0.5); Absolute Eosinophils 0.1 K/uL (0-0.5); Absolute Lymphocytes (CBC) 0.9 K/uL (0.7-4.9); Absolute Monocytes 0.3 K/uL (0.1-1.3); Absolute Neutrophil 3.8 K/uL (1.8-8.0); Basophils % 1.2 % (0-1.3); Eosinophils % 2.1 % (0-4.4); Hematocrit 29.3 % (36.0-45.0); Hemoglobin 9.5 g/dL (12.0-15.0); Lymphocytes % 17.3 % (15.3-44.8); MCH 28.4 pg (27.0-35.0); MCHC 32.4 g/dL (32.0-36.0); MCV 87.6 fL (80-100); MPV 10.7 fL (7.6-11.3); Monocytes % 6.3 % (3.3-12.3); Neutrophils % 73.1 % (41.7-73.7); Platelets 137 thou/uL (152-406); RBC Red Blood Cell Count 3.34 M/uL (3.86-4.86); Red Cell Distribution Width 18.7 % (12.1-15.2)
--- NOTE | 2024-03-27 15:46 | RAD REPORT ---
Procedure: Chest Single View HISTORY: Dizziness COMPARISON: November 2023 FINDINGS: The lungs appear clear of acute infiltrate. No significant pleural effusion noted. The heart is moderately enlarged. Post surgical changes involving the chest. PICC line in place. Pacemaker leads noted. IMPRESSION: No acute abnormality is displayed.
[2024-03-27 17:20] LABS: AST/SGOT 13 U/L (15-37); Albumin 2.7 g/dL (3.4-5.0); Albumin/Globulin Ratio 0.6 (1.1-1.8); Alkaline Phosphatase 52 U/L (45-117); Anion Gap 9.9 mEq/L (5.0-15.0); BUN Blood Urea Nitrogen 22 mg/dL (7-18); Bicarbonate 28 mEq/L (21-32); Bilirubin Direct 0.2 mg/dL (0-0.2); Bilirubin Indirect, Calculated 0.2 mg/dL (0.2-0.8); Bilirubin Total 0.4 mg/dL (0.2-1.0); Globulin 4.4 g/dL (2.3-3.5); Glomerular Filtration Rate 91 ml/min (=/>90); Glucose Level 102 mg/dL (74-106); Magnesium 1.7 mg/dL (1.6-2.4); Potassium 2.9 mEq/L (3.5-5.1); Protein, Total 7.1 g/dL (6.4-8.2); Sodium Level 140 mEq/L (136-145)
[2024-03-27 17:23] LABS: ALT/SGPT < 14 U/L (13-56)
--- NOTE | 2024-03-27 17:47 | EDPHYS ---
Physician Documentation [facility] Name: Sukh York Age: 64 yrs Sex: Female : 1960 Arrival Date: 03/27/2024 Time: 14:15 Bed 5 Private MD: ED Physician Perez Goddard HPI: 03/27 19:12 This 64 yrs old Female presents to ER via Wheelchair with complaints of rt Dizziness. 19:12 Patient with history of LVAD presents to the ED with dizziness. Patient states that she rt believes that her potassium level is low, states that she gets dizzy when her potassium level is low. Denies any chest pain, shortness of breath, syncope. Denies other acute complaints, symptoms are moderate in severity, no other aggravating alleviating factors.. Historical: - Allergies: 15:17 PENICILLINS; tl4 - PMHx: 15:17 Aneurysm; Arthritis; CHF; COPD; Diabetes - NIDDM; Hypertension; tl4 15:17 LVAD; tl4 - PSHx: 15:17 back; defibrillator; tl4 - Immunization history:: Adult Immunizations unknown. - Infectious Disease History:: Denies. - Social history:: Smoking status: Patient denies any tobacco usage or history of. - Family history:: not pertinent. ROS: 19:12 Constitutional: Negative for fever, chills, and weight loss, Cardiovascular: Negative rt for chest pain, palpitations, and edema, Respiratory: Negative for shortness of breath, cough, wheezing, and pleuritic chest pain, Abdomen/GI: Negative for abdominal pain, nausea, vomiting, diarrhea, and constipation, Skin: Negative for injury, rash, and discoloration, 19:12 Neuro: Positive for dizziness, Negative for loss of consciousness, Exam: 19:12 Constitutional: This is a well developed, well nourished patient who is awake, alert, rt and in no acute distress. Head/Face: Normocephalic, atraumatic. Cardiovascular: Regular rate and rhythm with a normal S1 and S2. No gallops, murmurs, or rubs. Normal PMI, no JVD. No pulse deficits. Respiratory: Lungs have equal breath sounds bilaterally, clear to auscultation and percussion. No rales, rhonchi or wheezes noted. No increased work of breathing, no retractions or nasal flaring. Abdomen/GI: Soft, non-tender, with normal bowel sounds. No distension or tympany. No guarding or rebound. No evidence of tenderness throughout. Skin: Warm, dry with normal turgor. Normal color with no rashes, no lesions, and no evidence of cellulitis. MS/ Extremity: Pulses equal, no cyanosis. Neurovascular intact. Full, normal range of motion. 19:12 Chest/axilla: LVAD in place. Vital Signs: 15:14 Pulse 79; Resp 20; Temp 98.5; Pulse Ox 100% on R/A; tl4 16:21 BP 127 / 62; Pulse 75; Resp 16; Pulse Ox 99% ; ko1 17:52 BP 114 / 69; Pulse 64; Resp 15; Pulse Ox 99% ; ko1 MDM: 15:00 Medical Screening Exam initiated rt 19:12 Differential diagnosis: Electrolyte disturbance, anemia. Data reviewed: vital signs, rt nurses notes, lab test result(s). Consideration of Admission/Observation Escalation of care including admission/observation considered. I discussed findings with the patient, she states that she is strongly desirous of discharge. I did recommend that I speak with LVAD coordinator, patient declines at this, stating that she does not wish for me to contact LVAD coordinator and wishes to go home. Will replete patient's potassium. Return precautions were discussed.. I considered the following discharge prescriptions or medication management in the emergency department Medications were administered in the Emergency Department. See MAR. Independent interpretation of the following test(s) in the Emergency Department X-Ray: My interpretation is No edema seen on interpretation of x-ray images. Test considered but Not performed: CT: No head trauma, loss of consciousness, CT scan of the head is not indicated. Care significantly affected by the following chronic conditions: Congestive Heart Failure. Counseling: I had a detailed discussion with the patient and/or guardian regarding the historical points, exam findings, and any diagnostic results supporting the discharge/admit diagnosis, lab results, radiology results, the need for outpatient follow up. Response to treatment: the patient's symptoms have markedly improved after treatment. 03/27 15:11 Order name: Basic Metabolic Panel; Complete Time: 17:24 rt 03/27 15:11 Order name: CBC with Diff; Complete Time: 15:46 rt 03/27 15:11 Order name: LFT's; Complete Time: 17:24 rt 03/27 15:11 Order name: Magnesium; Complete Time: 17:24 rt 03/27 15:11 Order name: Troponin HS; Complete Time: 17:24 rt 03/27 15:11 Order name: XRAY Chest (1 view); Complete Time: 15:46 rt 03/27 15:11 Order name: Cardiac monitoring; Complete Time: 15:15 rt 03/27 15:11 Order name: IV Saline Lock; Complete Time: 16:53 rt 03/27 15:11 Order name: Labs collected and sent; Complete Time: 15:33 rt 03/27 15:11 Order name: O2 Per Protocol; Complete Time: 15:15 rt 03/27 15:11 Order name: O2 Sat Monitoring; Complete Time: 15:15 rt 03/27 15:44 Order name: Labs - recollect needed: recollect chemistries / hemolyzed per Jahaira eb Complete Time: 16:50 03/27 17:47 Order name: Ice pack; Complete Time: 18:11 rt 03/27 17:47 Order name: Kieran Wrap; Complete Time: 18:11 rt Administered Medications: 17:53 Drug: Potassium PO Effervescent Tablet 50 mEq PO once; dissolve in 4 ounces of water or ko1 juice Route: PO; 18:17 Follow up: Response: No adverse reaction ko1 Disposition Summary: 03/27/24 17:46 Discharge Ordered Notes: Location: Home rt Problem: new rt Symptoms: have improved rt Condition: Stable rt Diagnosis - Dizziness rt - Hypokalemia rt - Constipation rt Followup: rt - With: Private Physician - When: 1 - 2 days - Reason: Discharge Instructions: - Discharge Summary Sheet rt - Constipation, Adult rt - Dizziness rt - Hypokalemia rt Forms: - Medication Reconciliation Form rt - Antibiotic Education rt - Prescription Opioid Use rt - Patient Portal Instructions rt - Leadership Thank You Letter rt Prescriptions: - Potassium Chloride 20 meq Oral Packet - take 1 packet ORAL route once daily 1 packet in 6 (six) ounces of water or rt juice; Take after meal; 15 packet; Refills: 0, Product Selection Permitted - Lactulose 10 gram/15 mL Oral Solution - take 30 milliliters ORAL route once daily; 300 milliliter; Refills: 0, Product rt Selection Permitted Signatures: Dispatcher [employer] EDMS Jacqui Meehan Kathy, RN RN ko1 Perez Goddard MD MD rt Alex Leavitt RN RN tl4 Corrections: (The following items were deleted from the chart) 15:12 15:12 BASIC METABOLIC PANEL+C.LAB.BRZ ordered. EDMS EDMS 15:12 15:12 CBC+H.LAB.BRZ ordered. EDMS EDMS 15:12 15:12 HEPATIC FUNCTION+C.LAB.BRZ ordered. EDMS EDMS 15:12 15:12 MAGNESIUM+C.LAB.BRZ ordered. EDMS EDMS 15:12 15:12 Troponin High Sensitivity+C.LAB.BRZ ordered. EDMS EDMS 15:12 15:12 Chest Single View+RAD.RAD.BRZ ordered. EDMS EDMS 15:17 15:17 PMHx: LVAD (defibrillator); tl4 tl4 15:49 15:11 EKG - Nurse/Tech ordered. rt ls5
--- NOTE | 2024-03-27 17:47 | ER ---
Nurse's Notes [facility] Name: Sukh York Age: 64 yrs Sex: Female : 1960 Arrival Date: 03/27/2024 Time: 14:15 Bed 5 Private MD: Diagnosis: Dizziness;Hypokalemia;Constipation Presentation: 03/27 15:14 Chief complaint: Patient states: Pt c/o dizziness since after being discharged tl4 from inpatient admission. Pt states she was not prescribed potassium on discharge but is supposed to take it. Pt c/o ongoing constipation. Coronavirus screen: At this time, the client does not indicate any symptoms associated with coronavirus-19. Ebola Screen: No symptoms or risks identified at this time. Initial Sepsis Screen: Does the patient meet any 2 criteria? No. Patient's initial sepsis screen is negative. Does the patient have a suspected source of infection? No. Patient's initial sepsis screen is negative. Risk Assessment: Do you want to hurt yourself or someone else? Patient reports no desire to harm self or others. Onset of symptoms was March 25, 2024. 15:14 Method Of Arrival: Wheelchair tl4 15:14 Acuity: RADHA 3 tl4 Triage Assessment: 15:17 General: Appears in no apparent distress. Behavior is cooperative. Pain: Complains of tl4 pain in rectum. EENT: No signs and/or symptoms were reported regarding the EENT system. Neuro: Level of Consciousness is awake, alert, obeys commands, Oriented to person, place, time, situation, Reports dizziness. Cardiovascular: Denies chest pain, Capillary refill < 3 seconds Patient's skin is warm and dry. Respiratory: Airway is patent Respiratory effort is even, unlabored, Respiratory pattern is regular, symmetrical. GI: Reports constipation. : No signs and/or symptoms were reported regarding the genitourinary system. Derm: No signs and/or symptoms reported regarding the dermatologic system. Musculoskeletal: No signs and/or symptoms reported regarding the musculoskeletal system. Historical: - Allergies: 15:17 PENICILLINS; tl4 - PMHx: 15:17 Aneurysm; Arthritis; CHF; COPD; Diabetes - NIDDM; Hypertension; tl4 15:17 LVAD; tl4 - PSHx: 15:17 back; defibrillator; tl4 - Immunization history:: Adult Immunizations unknown. - Infectious Disease History:: Denies. - Social history:: Smoking status: Patient denies any tobacco usage or history of. - Family history:: not pertinent. Screenin:[address] [facility] ED Fall Risk Assessment (Adult) History of falling in the last 3 months, ko1 including since admission No falls in past 3 months (0 pts) Confusion or Disorientation No (0 pts) Intoxicated or Sedated No (0 pts) Impaired Gait No (0 pts) Mobility Assist Device Used No (0 pt) Altered Elimination No (0 pt) Score/Fall Risk Level 0 - 2 = Low Risk Oriented to surroundings, Maintained a safe environment, Educated pt \T\ family on fall prevention, incl call for assistance when getting out of bed, Assessed \T\ reinforced patient's understanding of fall precautions, Provided non-skid footwear, Hourly rounding (assess needs \T\ fall precautionary measures) done. Abuse screen: Denies threats or abuse. Denies injuries from another. Nutritional screening: No deficits noted. Tuberculosis screening: No symptoms or risk factors identified. Assessment: 15:18 Reassessment: Unable to obtain blood pressure due to LVAD. Unable to locate doppler in 4 ED. Vital Signs: 15:14 Pulse 79; Resp 20; Temp 98.5; Pulse Ox 100% on R/A; tl4 16:21 BP 127 / 62; Pulse 75; Resp 16; Pulse Ox 99% ; ko1 17:52 BP 114 / 69; Pulse 64; Resp 15; Pulse Ox 99% ; ko1 ED Course: 14:17 Patient arrived in ED. ra3 14:29 Perez Goddard MD is Attending Physician. rt 14:56 Georgina Harman, DAY is Primary Nurse. ko1 15:17 Triage completed. tl4 15:18 Arm band placed on right wrist. tl4 15:34 Initial lab(s) drawn, by ED staff, sent to lab. aa5 15:37 XRAY Chest (1 view) In Process Unspecified. EDMS 16:21 Patient has correct armband on for positive identification. Allergy band placed. Placed ko1 in gown. Bed in low position. Call light in reach. Side rails up X2. Provided Education on: labs. Client placed on continuous cardiac and pulse oximetry monitoring. NIBP monitoring applied. equipment monitor phototypesetting on. Door closed. Noise minimized. Lights dimmed. Warm blanket given. Pillow given. 16:21 No provider procedures requiring assistance completed. ko1 17:52 IV discontinued, intact, bleeding controlled, No redness/swelling at site. Pressure ko1 dressing applied. Administered Medications: 17:53 Drug: Potassium PO Effervescent Tablet 50 mEq PO once; dissolve in 4 ounces of water or ko1 juice Route: PO; 18:17 Follow up: Response: No adverse reaction ko1 Medication: 16:21 VIS not applicable for this client. ko1 Outcome: 17:46 Discharge ordered by . rt 18:17 Discharged to home via wheelchair, with family, ko1 18:17 Condition: stable 18:17 Discharge instructions given to patient, family, Instructed on discharge instructions, follow up and referral plans. medication usage, Demonstrated understanding of instructions, follow-up care, medications, Prescriptions given X 2, 18:18 Patient left the ED. ko1 Signatures: Dispatcher [employer] EDHailee Lopez RN RN aa5 Georgina Harman RN RN ko1 Perez Goddard MD MD rt Alex Leavitt RN RN tl4 Liz Tyler ra3 Corrections: (The following items were deleted from the chart) 15:17 15:17 PMHx: LVAD (defibrillator); tl4 tl4
[2024-03-27] MEDS ORDERED: POTASSIUM 25 MEQ EFFERV TAB ONE (17:55)
[2024-03-27 18:42] VITALS: TEMP 98.5
[2024-03-27 18:48] VITALS: O2SAT 99
[2024-03-27 18:49] VITALS: BP 114/69
== END 2024-03-27 18:18 | disposition home or self-care (01) ==
LOC: ER 14:15
DX: E87.6 Hypokalemia (principal); K59.00 Constipation, unspecified; I10 Essential (primary) hypertension; E11.9 Type 2 diabetes mellitus without complications; Z95.810 Presence of automatic (implantable) cardiac defibrillator
CPT/HCPCS: 36415; 71045; 80048; 80076; 83735; 84484; 85025; 99284

== ENCOUNTER 2024-06-15 13:00 | Emergency (ER) | payer OTHER ==
[2024-06-15 13:28] LABS: Absolute Basophils 0.1 K/uL (0-0.5); Absolute Eosinophils 0.1 K/uL (0-0.5); Absolute Lymphocytes (CBC) 0.9 K/uL (0.7-4.9); Absolute Monocytes 0.3 K/uL (0.1-1.3); Absolute Neutrophil 4.1 K/uL (1.8-8.0); Basophils % 1.1 % (0-1.3); Eosinophils % 1.5 % (0-4.4); Hematocrit 34.2 % (36.0-45.0); Hemoglobin 11.3 g/dL (12.0-15.0); Lymphocytes % 16.6 % (15.3-44.8); MCH 29.8 pg (27.0-35.0); MCHC 33.1 g/dL (32.0-36.0); MCV 90.2 fL (80-100); MPV 10.5 fL (7.6-11.3); Monocytes % 5.6 % (3.3-12.3); Neutrophils % 75.2 % (41.7-73.7); Nucleated Red Blood Cells % 0.3 % (0-0); Platelets 135 thou/uL (152-406); Red Cell Distribution Width 16.7 % (12.1-15.2)
[2024-06-15 13:34] LABS: PT Prothrombin Time 23.4 SECONDS (9.4-12.5); Protime INR 2.25
[2024-06-15 13:44] LABS: ALT/SGPT 16 U/L (13-56); Albumin 3.6 g/dL (3.4-5.0); Albumin/Globulin Ratio 0.9 (1.1-1.8); Alkaline Phosphatase 64 U/L (45-117); Anion Gap 7.5 mEq/L (5.0-15.0); BUN Blood Urea Nitrogen 31 mg/dL (7-18); Bicarbonate 28 mEq/L (21-32); Bilirubin Total 0.4 mg/dL (0.2-1.0); Glomerular Filtration Rate 69 ml/min (=/>90); Glucose Level 95 mg/dL (74-106); Potassium 3.5 mEq/L (3.5-5.1); Protein, Total 7.6 g/dL (6.4-8.2); Sodium Level 137 mEq/L (136-145)
[2024-06-15 13:46] LABS: AST/SGOT < 10 U/L (15-37)
--- NOTE | 2024-06-15 14:06 | RAD REPORT ---
EXAM: Chest Single View HISTORY: lightheaded COMPARISON: 03/27/2024 FINDINGS: LUNGS/PLEURA: The lungs are clear. No pleural effusions or pneumothorax. No pulmonary edema. MEDIASTINUM: The mediastinal silhouette is within normal limits. CARDIAC: Moderate cardiomegaly. Left ventricular cyst device. UPPER ABDOMEN: No significant abnormality. BONES: No acute abnormality. LINES/TUBES/OTHER: Pacemaker/ICD. IMPRESSION: No evidence of acute cardiopulmonary disease.
--- NOTE | 2024-06-15 15:10 | RAD REPORT ---
EXAMINATION: US LOWER EXTREMITY VENOUS DOPPLER BILATERAL CLINICAL INDICATION: Female, 64 years old.SWELLING TECHNIQUE: Complete bilateral duplex sonography of the lower extremity veins was performed. The exami nation included compression for vein patency, color Doppler imaging and flow augmentation in response to distal compression of the distal external iliac, common femoral, femoral, popliteal, codey bill, tibial and great saphenous veins. [id number]. COMPARISON: No prior exams FINDINGS: Duplex sonography imaging demonstrates all deep examined to be fully compressible with spontaneous, p hasic and augmented flow bilaterally. IMPRESSION: No evidence of deep venous thrombosis seen in either lower extremity.
--- NOTE | 2024-06-15 15:21 | ER ---
Nurse's Notes [facility] [place] Name: Sukh York Age: 64 yrs Sex: Female : 1960 Arrival Date: 06/15/2024 Time: 13:00 Bed 2 Private MD: Diagnosis: Dizziness;Anemia, unspecified Presentation: 06/15 13:13 Chief complaint: Patient states: near syncope x2. Pt states my head felt a little ss tingly the first time, but the second time, my whole head felt VERY tingly. Coronavirus screen: Client denies travel out of the [place] in the last 14 days. Ebola Screen: Patient denies exposure to infectious person. Patient denies travel to an Ebola-affected area in the 21 days before illness onset. Initial Sepsis Screen: Does the patient meet any 2 criteria? No. Patient's initial sepsis screen is negative. Does the patient have a suspected source of infection? No. Patient's initial sepsis screen is negative. Risk Assessment: Do you want to hurt yourself or someone else? Patient reports no desire to harm self or others. Onset of symptoms was June 15, 2024. Care prior to arrival: IV initiated. 20 GA, in the left antecubital area. 13:13 Method Of Arrival: EMS: [facility] ss 13:13 Acuity: RADHA 2 ss Historical: - Allergies: 13:15 PENICILLINS; ss - PMHx: 13:15 Aneurysm; Arthritis; CHF; COPD; Diabetes - NIDDM; Hypertension; LVAD; ss - PSHx: 13:15 back; defibrillator; LVAD (defibrillator); ss - Immunization history:: Client reports having NOT received the Covid vaccine. - Infectious Disease History:: Denies. - Social history:: Smoking status: Patient denies any tobacco usage or history of. Screenin:24 [facility] ED Fall Risk Assessment (Adult) History of falling in the last 3 months, ld1 including since admission No falls in past 3 months (0 pts) Confusion or Disorientation No (0 pts) Intoxicated or Sedated No (0 pts) Impaired Gait No (0 pts) Mobility Assist Device Used No (0 pt) Altered Elimination No (0 pt) Score/Fall Risk Level 0 - 2 = Low Risk Oriented to surroundings, Maintained a safe environment, Educated pt \T\ family on fall prevention, incl call for assistance when getting out of bed, Assessed \T\ reinforced patient's understanding of fall precautions, Provided non-skid footwear, Hourly rounding (assess needs \T\ fall precautionary measures) done, Used ambulatory aids as needed (educated on \T\ assisted with), Used gait belt as appropriate. Abuse screen: Denies threats or abuse. Denies injuries from another. Nutritional screening: No deficits noted. Tuberculosis screening: No symptoms or risk factors identified. Assessment: 13:24 General: Appears in no apparent distress. comfortable, Behavior is calm, cooperative, ld1 appropriate for age. Pain: Denies pain. Neuro: Level of Consciousness is awake, alert, obeys commands, Oriented to person, place, time, situation, Appropriate for age. Cardiovascular: Capillary refill Patient's skin is warm and dry. LVAD to patient. Respiratory: Airway is patent Respiratory effort is even, unlabored. GI: Abdomen is round non-distended. : No signs and/or symptoms were reported regarding the genitourinary system. EENT: No signs and/or symptoms were reported regarding the EENT system. Derm: No signs and/or symptoms reported regarding the dermatologic system. Musculoskeletal: No signs and/or symptoms reported regarding the musculoskeletal system. 15:08 Reassessment: Patient appears in no apparent distress at this time. No changes from ld1 previously documented assessment. Patient and/or family updated on plan of care and expected duration. Pain level reassessed. Patient is alert, oriented x 3, equal unlabored respirations, skin warm/dry/pink. Vital Signs: 13:13 BP 105 / 69; Pulse 63; Resp 16; Temp 98(O); Pulse Ox 100% on R/A; Weight 79.38 kg; ss Height 5 ft. 2 in. ; Pain 0/10; 13:24 BP 113 / 77; Pulse 74; Resp 18; Pulse Ox 100% on R/A; ld1 15:38 BP 101 / 83; Pulse 76; Resp 15; Pulse Ox 97% ; cm10 13:13 Body Mass Index 32.01 (79.38 kg, 157.48 cm) 13:13 Pain Scale: Adult ss ED Course: 13:07 Patient arrived in ED. ms3 13:07 Manpreet Ponce DO is Attending Physician. ms3 13:14 Layne Ponce, RN is Primary Nurse. ld1 13:15 Triage completed. ss 13:15 Arm band placed on right wrist. ss 13:24 Patient has correct armband on for positive identification. Placed in gown. Bed in low ld1 position. Call light in reach. Side rails up X2. monitor car operator on. Pulse ox on. NIBP on. Door closed. Noise minimized. Warm blanket given. 13:24 [facility] Sent. ld1 13:24 PT-INR Sent. ld1 13:24 CMP Sent. ld1 13:24 CBC with Diff Sent. ld1 13:24 No provider procedures requiring assistance completed. Maintain EMS IV. Dressing ld1 intact. Good blood return noted. Site clean \T\ dry. Gauge \T\ site: 20G LAC. 13:30 CXR XRAY In Process Unspecified. EDMS 14:05 initiated transfer to [facility]. bd 14:[address] Ponce due to pt refusing to be transferred, wants to be bd discharged. 14:56 Extrem Venous W Compression Manpreet US In Process Unspecified. EDMS 15:38 Provided Education on: Follow-up instructions.. cm10 15:38 IV discontinued, intact, bleeding controlled, No redness/swelling at site. Pressure cm10 dressing applied. Administered Medications: No medications were administered Medication: 13:24 VIS not applicable for this client. ld1 Outcome: 15:20 Discharge ordered by . ms3 15:38 Discharged to home via wheelchair, with family, cm10 15:38 Condition: good 15:38 Discharge instructions given to patient, Instructed on discharge instructions, follow up and referral plans. Demonstrated understanding of instructions, follow-up care, 15:42 Patient left the ED. ld1 Signatures: Dispatcher [employer] EDMS Verona Hinson Shelby, RN RN ss Manpreet Ponce DO DO ms3 Layne Ponce, RN RN ld1 Mirta Lutz RN RN cm10
--- NOTE | 2024-06-15 15:21 | EDPHYS ---
Physician Documentation [facility] Name: Sukh York Age: 64 yrs Sex: Female : 1960 Arrival Date: 06/15/2024 Time: 13:00 Bed 2 Private MD: ED Physician Manpreet Ponce HPI: 06/15 13:12 This 64 yrs old Female presents to ER via Unassigned with complaints of ms3 lightheaded. 13:12 Ms. York, a 64 year old female, presents to the Emergency Department with complaints ms3 of dizziness. The dizziness occurred twice today, early in the morning, and was accompanied by tingling in the hands. The patient reports that the dizziness does not occur when she is not active, but it started while trying to empty boxes. This episode was more concerning as it happened twice today, unlike a single occurrence yesterday. The patient is not experiencing any pain, nausea, or vomiting. . Historical: - Allergies: 13:15 PENICILLINS; ss - PMHx: 13:15 Aneurysm; Arthritis; CHF; COPD; Diabetes - NIDDM; Hypertension; LVAD; ss - PSHx: 13:15 back; defibrillator; LVAD (defibrillator); ss - Immunization history:: Client reports having NOT received the Covid vaccine. - Infectious Disease History:: Denies. - Social history:: Smoking status: Patient denies any tobacco usage or history of. ROS: 13:12 Constitutional: Negative for fever, and chills. Cardiovascular: Negative for chest ms3 pain, and palpitations. Respiratory: Negative for shortness of breath, cough, wheezing, and pleuritic chest pain, Abdomen/GI: Negative for abdominal pain, nausea, vomiting, diarrhea, and constipation, 13:12 Neuro: Positive for dizziness, Exam: 13:12 Constitutional: This is a well developed, well nourished patient who is awake, alert, ms3 and in no acute distress. Respiratory: Lungs have equal breath sounds bilaterally, clear to auscultation and percussion. No rales, rhonchi or wheezes noted. No increased work of breathing, no retractions or nasal flaring. Abdomen/GI: Soft, non-tender, with normal bowel sounds. No distension or tympany. No guarding or rebound. No evidence of tenderness throughout. Skin: Warm, dry with normal turgor. Normal color with no rashes, no lesions, and no evidence of cellulitis. 13:12 Cardiovascular: LVAD impeller auscultated, 15:37 ECG was reviewed by the Attending Physician. ms3 Vital Signs: 13:13 BP 105 / 69; Pulse 63; Resp 16; Temp 98(O); Pulse Ox 100% on R/A; Weight 79.38 kg; ss Height 5 ft. 2 in. ; Pain 0/10; 13:24 BP 113 / 77; Pulse 74; Resp 18; Pulse Ox 100% on R/A; ld1 15:38 BP 101 / 83; Pulse 76; Resp 15; Pulse Ox 97% ; cm10 13:13 Body Mass Index 32.01 (79.38 kg, 157.48 cm) ss 13:13 Pain Scale: Adult ss MDM: 13:07 Medical Screening Exam initiated ms3 13:12 Differential Diagnosis: cardiac arrhythmia, hypotension vs electrolyte abnormality. ms3 14:24 ED course: Discussed labs and chest x-ray with patient's LVAD coordinator Allison Lee. ms3 Patient is refusing transfer at this time. Discussed with patient necessity for transfer and higher level of care. Discussed with patient risks of , disability, undiagnosed condition, or LVAD problem. Patient has decided to refuse transfer to LVAD facility. At this time, I reevaluated the patient and discussed the following: a. Capacity: The patient has the capacity to communicate, understand information, and logically process the decision making process. b. Communication of risks: At bedside, I discussed potential risks, outcomes, and alternative approaches in a patientcentered manner. The patient was informed of the specific risks of disability, including worsening condition and . The patient understands that they are welcome to return at any time to complete the workup. Patient is discharged from my care with informed refusal.. 15:36 Data reviewed: vital signs, nurses notes, lab test result(s), radiologic studies, and ms3 as a result, I will discharge patient. Independent interpretation of the following test(s) in the Emergency Department X-Ray: My interpretation is Chest x-ray image reviewed by me implantable defibrillator and LVAD in place. No consolidation or effusion present.. Counseling: I had a detailed discussion with the patient and/or guardian regarding the historical points, exam findings, and any diagnostic results supporting the discharge/admit diagnosis, lab results, radiology results, the need for outpatient follow up, to return to the emergency department if symptoms worsen or persist or if there are any questions or concerns that arise at home. Refusal of service: The patient/guardian displays adequate decision making capability and despite a detailed discussion of alternatives, benefits, risks, and consequences refuses: Patient refuses transfer to [facility] where her LVAD team is located. 06/15 13:08 Order name: CBC with Diff; Complete Time: 13:41 ms3 06/15 13:08 Order name: CMP; Complete Time: 13:46 ms3 06/15 13:08 Order name: PT-INR; Complete Time: 13:41 ms3 06/15 13:08 Order name: LDH; Complete Time: 13:46 ms3 06/15 13:47 Order name: Troponin High Sensitivity; Complete Time: 14:20 ms3 06/15 13:09 Order name: CXR XRAY; Complete Time: 14:12 ms3 06/15 13:10 Order name: Extrem Venous W Compression Manpreet US; Complete Time: 15:12 ms3 06/15 13:09 Order name: EKG - Nurse/Tech; Complete Time: 13:44 ms3 EC:37 Rate is 60 beats/min. Left axis deviation noted. QRS interval is prolonged. Clinical ms3 impression: LVAD interference with PVC. Interpreted by me. Reviewed by me. Administered Medications: No medications were administered Disposition Summary: 06/15/24 15:20 Discharge Ordered Notes: Location: Home ms3 Condition: Stable ms3 Diagnosis - Dizziness ms3 - Anemia, unspecified ms3 Followup: ms3 - With: Private Physician - When: 1 - 2 days - Reason: Recheck today's complaints Discharge Instructions: - Discharge Summary Sheet ms3 - Anemia ms3 - Dizziness, [id number]-[id number] ms3 Forms: - Medication Reconciliation Form ms3 - Antibiotic Education ms3 - Prescription Opioid Use ms3 - Patient Portal Instructions ms3 - Leadership Thank You Letter ms3 Signatures: Dispatcher [employer] Bree Floyd RN RN Manpreet Traylor DO DO ms3 Corrections: (The following items were deleted from the chart) 13:09 13:09 CBC+H.LAB.BRZ ordered. EDMS EDMS 13:09 13:09 COMPREHENSIVE METABOLIC PANEL+C.LAB.BRZ ordered. EDMS EDMS 13: 13:09 PROTIME (+INR)+COAG.LAB.BRZ ordered. EDMS EDMS 13: 13:09 LACTIC DEHYDROGENASE+C.LAB.BRZ ordered. EDMS EDMS 13: 13:09 Chest Single View+RAD.RAD.BRZ ordered. EDMS EDMS 13:11 13:11 Extrem Venous W Compression Manpreet+US.RAD.BRZ ordered. EDMS EDMS 13:15 13:12 Constitutional: This is a well developed, well nourished patient who is awake, ms3 alert, and in no acute distress. ms3
[2024-06-15 19:02] VITALS: TEMP 98
[2024-06-15 19:06] VITALS: BP 101/83; O2SAT 97
== END 2024-06-15 15:42 | disposition home or self-care (01) ==
LOC: ER 13:00
DX: R42 Dizziness and giddiness (principal); D64.9 Anemia, unspecified; Z95.810 Presence of automatic (implantable) cardiac defibrillator
CPT/HCPCS: 36415; 71045; 80053; 83615; 84484; 85025; 85610; 93970; 99284